=== PATIENT | female | born 1940 | race Caucasian/White ===

== ENCOUNTER → 2017-11-16 08:31 | Outpatient (CLI) | payer MEDICARE, OTHER, SELFPAY ==
[2017-11-16 11:24] LABS: AST(SGOT) 26 U/L (15-37); Alanine Aminotransfer ALT/SGPT 24 U/L (13-56); Albumin, Serum 3.4 g/dL (3.2-5.0); Alkaline Phosphatase 64 U/L (45-117); Bilirubin, Direct 0.15 mg/dL (0.00-0.30); Cholesterol 186 mg/dL (200); Globulin 3.7 g/dL (2.2-4.2); High Density Lipoprotein 96 mg/dL; Protein, Total 7.1 g/dL (6.4-8.2); Triglycerides 72 mg/dL; Very Low Density Lipoprotein 14 mg/dL (5-40)
[2017-11-16 12:02] LABS: Urine Sodium 41 mmol/L (Not Establ.)
[2017-11-16 12:52] LABS: Osmolality, Urine 465 mOsm/KG
== END ==
PROVIDERS: Nurse Practitioner Family; Family Provider Internal Medicine; PCP Internal Medicine; Visit Provider Internal Medicine Nephrology
DX: E87.1 Hypo-osmolality and hyponatremia (principal); I48.0 Paroxysmal atrial fibrillation; R06.02 Shortness of breath; I34.1 Nonrheumatic mitral (valve) prolapse; Z79.899 Other long term (current) drug therapy
CPT/HCPCS: 80061; 80076; 83935; 84133; 84300

== ENCOUNTER → 2017-12-08 11:11 | Outpatient (CLI) | payer MEDICARE, OTHER, SELFPAY ==
[2017-12-08 12:55] LABS: Albumin, Serum 3.1 g/dL (3.2-5.0); BUN 18 mg/dL (7-18); BUN/Creat Ratio 23.6 RATIO (10-20); Calcium,Total 8.2 mg/dL (8.5-10.1); Chloride 97 mmol/L (98-107); Creatinine, Serum 0.76 mg/dL (0.55-1.02); EST Glomerular Filtration Rate 78 mL/min (>60); Est Glom Filt Rate - Afr Amer 95 mL/min (>60); Glucose 72 mg/dL (74-106); Magnesium 2.2 mg/dL (1.6-2.6); Phosphorus 3.4 mg/dL (2.5-4.9); Potassium 4.1 mmol/L (3.5-5.1); Sodium Level 130 mmol/L (136-145)
== END ==
PROVIDERS: Family Provider Internal Medicine; PCP Internal Medicine; Visit Provider Internal Medicine Nephrology
DX: E87.1 Hypo-osmolality and hyponatremia (principal); E83.42 Hypomagnesemia; E22.2 Syndrome of inappropriate secretion of antidiuretic hormone
CPT/HCPCS: 36415; 80069; 83735

== ENCOUNTER → 2018-03-02 08:58 | Outpatient (CLI) | payer MEDICARE, OTHER, SELFPAY ==
--- NOTE | 2018-03-02 09:01 | BI_ITS ---
MAMMOGRAPHY - BILATERAL SCREENING REASON FOR EXAM: Female, 78 years old. Routine annual screening examination. PERTINENT HISTORY: Personal history of breast cancer. Sister with breast cancer. Prior left mastectomy. TECHNIQUE: Digital bilateral breast sunni (3D mammographic acquisition) in the CC and MLO projections. 2-D mediolateral oblique (MLO) and craniocaudad (CC) views of both breasts were obtained. CAD: Full Field Digital Mammography with Computer Added Detection was performed. COMPARISON: Comparison is made with prior outside examination dated February 03, 2017. FINDINGS: Breast Composition: There are scattered areas of fibroglandular density. There are no dominant masses or suspicious calcifications. No other significant abnormalities are identified. There has been no significant change since the prior study. BI/UNILAT RT SCRN W/CAD IMPRESSION: Stable bilateral screening mammogram. Yearly follow-up mammogram recommended. (A) ASSESSMENT CATEGORY: BIRADS Category 1: Negative. A letter regarding these results will be sent to the patient by the facility within 30 days. Approximately 10% of breast cancers are not detected by mammography. A normal mammogram should not delay biopsy of a clinically suspicious abnormality. [id number] Electronically Signed: Edenilson Crisostomo MD at 14:43 EDT Tel [phone], Service support ,
== END ==
PROVIDERS: Family Provider Internal Medicine; PCP Internal Medicine; Visit Provider Internal Medicine Hematology & Oncology
DX: Z12.31 Encounter for screening mammogram for malignant neoplasm of breast (principal); C50.212 Malignant neoplasm of upper-inner quadrant of left female breast; Z90.12 Acquired absence of left breast and nipple
CPT/HCPCS: 77061; 77067; G0279

== ENCOUNTER → 2018-04-02 08:30 | Outpatient (CLI) | payer MEDICARE, OTHER, SELFPAY ==
[2018-04-02 10:32] LABS: Anion Gap 7 (5-15); BUN 18 mg/dL (7-18); BUN/Creat Ratio 21.3 RATIO (10-20); Calcium,Total 8.6 mg/dL (8.5-10.1); Chloride 96 mmol/L (98-107); Creatinine, Serum 0.84 mg/dL (0.55-1.02); EST Glomerular Filtration Rate 70 mL/min (>60); Est Glom Filt Rate - Afr Amer 84 mL/min (>60); Glucose 99 mg/dL (74-106); Potassium 4.5 mmol/L (3.5-5.1); Sodium Level 132 mmol/L (136-145)
== END ==
PROVIDERS: Family Provider Internal Medicine; PCP Internal Medicine; Visit Provider Internal Medicine Nephrology
DX: E87.1 Hypo-osmolality and hyponatremia (principal)
CPT/HCPCS: 36415; 80048

== ENCOUNTER → 2018-04-13 11:12 | Outpatient (CLI) | payer MEDICARE, OTHER, SELFPAY ==
--- NOTE | 2018-04-13 11:15 | BD_ITS ---
STUDY: DUAL ENERGY X-RAY ABSORPTIOMETRY / DXA REASON FOR EXAM: Female, 78 years old. The patient is postmenopausal. No loss of height. TECHNIQUE: Bone Mineral Density (BMD) measurements of lumbar spine and bilateral hips were obtained. COMPARISON: Comparison is made with prior study dated July 31, 1999. FINDINGS: Lumbar Spine (L1-L4): g/cm2 (0.993) / T-score (-1.6) / Z-score (0.2) Findings are suggestive of osteopenia with a moderate fracture risk. Left Femur Total: g/cm2 (0.796) / T-score (-1.7) / Z-score (0.1) Left Femoral Neck: g/cm2 (0.749) / T-score (-2.1) / Z-score (-0.1) Right Femur Total: g/cm2 (0.704) / T-score (-2.4) / Z-score (-0.6) Right Femoral Neck: g/cm2 (0.684) / T-score (-2.5) / Z-score (-0.6) There is 50% loss of height of the L1 vertebrae and approximately 40% loss of height of the T10 vertebrae. The T-Scores on the most recent prior examination were: Lumbar Spine (L1-L4): There has been worsening of bone density since the previous examination. Left Femur Total: which represents a worsening of 19%. BD/DXA BONE DENS W/VERT FX ASMT IMPRESSION: The patient is considered osteopenic as outlined below according to World [employer] Organization (WHO) criteria with a moderate fracture risk. There has been worsening of bone density since the previous examination. Reference Information: The T-score is the number of standard deviations above or below the standard which is normal for young adults at their peak bone mineral density. The World Health Organization (WHO) interprets the T-scores as follows: Above -1 Normal bone density Between -1 and -2.5 Osteopenia Equal to / or below -2.5 Osteoporosis As a practical clinical guideline, osteopenia may be graded as follows: Mild -1 through -1.5 Moderate -1.6 through -2.0 Severe -2.1 through -2.4 The Z-score is the number of standard deviations above or below age-matched controls. A Z-score of less than -1.5 would be considered abnormal. References: 1. NIH Osteoporosis and Related Bone Diseases http://www.osteo.org 2. International Society for Clinical Densitometry http://www.iscd.org 3. National Osteoporosis Foundation http://www.nof.org Electronically Signed: Edenilson Crisostomo MD at 11:24 EDT Tel [phone], Service support ,
== END ==
PROVIDERS: Family Provider Internal Medicine; PCP Internal Medicine; Visit Provider Internal Medicine Hematology & Oncology
DX: Z78.0 Asymptomatic menopausal state (principal); M85.80 Other specified disorders of bone density and structure, unspecified site
CPT/HCPCS: 77080; 77085

== ENCOUNTER → 2018-05-08 10:05 | Outpatient (CLI) | payer MEDICARE, OTHER, SELFPAY ==
[2018-05-08 11:16] LABS: Anion Gap 10 (5-15); BUN 15 mg/dL (7-18); BUN/Creat Ratio 17.3 RATIO (10-20); Calcium,Total 8.5 mg/dL (8.5-10.1); Chloride 95 mmol/L (98-107); Creatinine, Serum 0.87 mg/dL (0.55-1.02); EST Glomerular Filtration Rate 68 mL/min (>60); Est Glom Filt Rate - Afr Amer 82 mL/min (>60); Glucose 83 mg/dL (74-106); Potassium 4.3 mmol/L (3.5-5.1); Sodium Level 132 mmol/L (136-145)
== END ==
PROVIDERS: Family Provider Internal Medicine; PCP Internal Medicine; Visit Provider Internal Medicine Nephrology
DX: E87.1 Hypo-osmolality and hyponatremia (principal)
CPT/HCPCS: 36415; 80048

== ENCOUNTER → 2018-11-12 13:34 | Outpatient (CLI) | payer MEDICARE, OTHER, SELFPAY ==
[2018-09-23 14:10] VITALS: BMI 19.0
[2018-11-12 14:43] LABS: Anion Gap 9 (5-15); BUN 18 mg/dL (7-18); BUN/Creat Ratio 18.7 RATIO (10-20); Calcium,Total 8.7 mg/dL (8.5-10.1); Chloride 97 mmol/L (98-107); Creatinine, Serum 0.96 mg/dL (0.55-1.02); EST Glomerular Filtration Rate 60 mL/min (>60); Est Glom Filt Rate - Afr Amer 72 mL/min (>60); Glucose 103 mg/dL (74-106); Potassium 4.3 mmol/L (3.5-5.1); Sodium Level 133 mmol/L (136-145)
== END ==
PROVIDERS: Family Provider Internal Medicine; PCP Internal Medicine; Referring Provider Internal Medicine Nephrology; Visit Provider Internal Medicine Nephrology
DX: E87.1 Hypo-osmolality and hyponatremia (principal)
CPT/HCPCS: 36415; 80048

== ENCOUNTER → 2019-01-17 | Outpatient (CLI) | payer MEDICARE, OTHER, SELFPAY ==
[2019-01-06 15:14] VITALS: BMI 19.1
[2019-01-17 14:03] LABS: Anion Gap 5 (5-15); BUN 18 mg/dL (7-18); BUN/Creat Ratio 21.5 RATIO (10-20); Calcium,Total 8.7 mg/dL (8.5-10.1); Chloride 97 mmol/L (98-107); Creatinine, Serum 0.84 mg/dL (0.55-1.02); EST Glomerular Filtration Rate 70 mL/min (>60); Est Glom Filt Rate - Afr Amer 85 mL/min (>60); Glucose 87 mg/dL (74-106); Potassium 4.5 mmol/L (3.5-5.1); Sodium Level 132 mmol/L (136-145)
== END | disposition home or self-care (01) ==
LOC: LAB 12:35
PROVIDERS: Family Provider Internal Medicine; PCP Internal Medicine; Referring Provider Internal Medicine Nephrology; Visit Provider Internal Medicine Nephrology
DX: E87.1 Hypo-osmolality and hyponatremia (principal)
CPT/HCPCS: 36415; 80048

== ENCOUNTER → 2019-01-31 | Outpatient (CLI) | payer MEDICARE, OTHER, SELFPAY ==
[2019-01-06 15:14] VITALS: BMI 19.1
[2019-01-31 11:01] LABS: AST(SGOT) 24 U/L (15-37); Alanine Aminotransfer ALT/SGPT 25 U/L (13-56); Albumin, Serum 3.2 g/dL (3.2-5.0); Alkaline Phosphatase 58 U/L (45-117); Bilirubin, Direct 0.18 mg/dL (0.00-0.30); Cholesterol 183 mg/dL (200); Globulin 3.6 g/dL (2.2-4.2); High Density Lipoprotein 102 mg/dL; Protein, Total 6.8 g/dL (6.4-8.2); Triglycerides 70 mg/dL; Very Low Density Lipoprotein 14 mg/dL (5-40)
== END | disposition home or self-care (01) ==
LOC: LAB 08:02
PROVIDERS: Family Provider Internal Medicine; PCP Internal Medicine; Referring Provider Internal Medicine Cardiovascular Disease; Visit Provider Internal Medicine Cardiovascular Disease
DX: I34.1 Nonrheumatic mitral (valve) prolapse (principal); Z79.899 Other long term (current) drug therapy
CPT/HCPCS: 36415; 80061; 80076

== ENCOUNTER → 2019-03-15 | Outpatient (CLI) | payer MEDICARE, OTHER, SELFPAY ==
[2019-01-06 15:14] VITALS: BMI 19.1
[2019-02-03 13:02] VITALS: BMI 18.6
--- NOTE | 2019-03-15 12:58 | BI_ITS ---
MAMMOGRAPHY - UNILATERAL SCREENING: RIGHT BREAST REASON FOR EXAM: Female, 79 years old. Routine annual screening examination (unilateral). PERTINENT HISTORY: Personal history of breast cancer. Prior left mastectomy. Sister with breast cancer. TECHNIQUE: Digital unilateral breast nilton (3D mammographic acquisition) in the CC and MLO projections. 2-D mediolateral oblique (MLO) and craniocaudad (CC) views of both breasts were obtained. CAD: Full Field Digital Mammography with Computer Added Detection was performed. COMPARISON: Comparison is made with prior study dated March 02, 2018. FINDINGS: Breast Composition: There are scattered areas of fibroglandular density. There are no dominant masses or suspicious calcifications. No other significant abnormalities are identified. There has been no significant change since the prior study. BI/SCREEN MAMM (CAD) W/NILTON UNI R IMPRESSION: Stable unilateral screening mammogram. Yearly follow-up mammogram recommended. (A) ASSESSMENT CATEGORY: BIRADS Category 1: Negative. A letter regarding these results will be sent to the patient by the facility within 30 days. Approximately 10% of breast cancers are not detected by mammography. A normal mammogram should not delay biopsy of a clinically suspicious abnormality. [id number] Electronically Signed: Edenilson Crisostomo, at 13:56 EDT , Service support ,
== END | disposition home or self-care (01) ==
LOC: OPBI 12:56
PROVIDERS: Family Provider Internal Medicine; PCP Internal Medicine; Referring Provider Internal Medicine Hematology & Oncology; Visit Provider Internal Medicine Hematology & Oncology
DX: Z12.31 Encounter for screening mammogram for malignant neoplasm of breast (principal); C50.212 Malignant neoplasm of upper-inner quadrant of left female breast
CPT/HCPCS: 77061; 77067; G0279

== ENCOUNTER 2019-06-13 06:00 | Day surgery (SDC) | payer MEDICARE, OTHER, SELFPAY ==
[2019-04-12 09:05] VITALS: BMI 18.6
[2019-04-20 14:06] VITALS: BMI 18.6
[2019-06-13 06:46] VITALS: BP 142/56; PULSE 60; RESP 15; TEMP 36.4; O2SAT 100; BMI 18.6
[2019-06-13] MEDS: Lactated Ringers 1,000 ML 100 ML IV (06:53)
--- NOTE | 2019-06-13 07:00 | IMM_PTH ---
PATIENT: JULIANNA TUCKER LOC: EN U#:[id number] AGE/SX: 79/F ROOM: RE06/13/[address]: Dr. Carlos Sheth MD : 1940 BED: DIS: 06/13/2019 SPEC #: [id number] RECD: 06/13/19 12:15 STATUS: ARELIS REQ #: [id number] VELMA: 06/13/19 07:[address]: Carlos Sheth DEPT: IMMUNOHISTOCHEMISTRY RECD BY: Floridalma Vaughn ENTERED: 06/13/19 12:16 SP TYPE: IMMUNO OTHR DR: MD Rochelle Babin MD Tissues: A - Stomach, NOS Procedures: H Pylori (initial) PHYSICIAN & INSTITUTION [place] [id number] SPECIMEN INFORMATION: Tissue Source: A - Antral biopsy Clinical Info: Reflux, history polyps Specimen Number: [id number] CPT code: 14560 METHODOLOGY: Deparaffinized sections of prefer/formalin-fixed tissue or PAP/DQ stained slides are incubated with monoclonal/polyclonal antibodies/oligonucleotide probes. Localization is made via biotin free immunoperoxidase method. Appropriate controls are performed and reacted as expected. Results on target cell population are indicated in the following table: RESULTS: ANTIBODY / CLONE RESULT Block A H Pylori (polyclonal) negative These tests were developed and their performance characteristics determined by [facility]. They may not have been cleared or approved by the U.S. Food and Drug Administration. The FDA has determined that such clearance or approval is not necessary. INTERPRETATION: A. Antral biopsy: Negative for Helicobacter pylori organisms. AM:horacio 06/14/19
--- NOTE | 2019-06-13 07:00 | EGD_PTH ---
PATIENT: JULIANNA TUCKER LOC: EN U#:[id number] AGE/SX: 79/F ROOM: RE06/13/[address]: Dr. Carlos Sheth MD : 1940 BED: DIS: 06/13/2019 SPEC #: [id number] RECD: 06/13/19 09:46 STATUS: ARELIS RESalas #: [id number] VELMA: 06/13/19 07:[address]: Carlos Sheth DEPT: SURGICAL PATHOLOGY RECD BY: Cheko Joyce ENTERED: 06/13/19 11:42 SP TYPE: EGD BIOPSY OTHR DR: MD Rochelle Babin MD Tissues: A - Gastric mucous membrane B - COLON BIOPSY Procedures: Surgery Specimen Level IV HEADER OPERATION[place] [place] DIAGNOSIS: Reflux, history of polyps TISSUE SUBMITTED: A - Antral biopsy for H. pylori and histo, B - Random colon biopsies MICROSCOPIC DIAGNOSIS A. Gastric antrum, biopsy: Mild chronic gastritis. See comment. B. Colon, random biopsy: No pathologic change. AM:horacio 06/14/19 COMMENT A. The results of immunohistochemistry for Helicobacter pylori will be reported separately ([id number]). MICROSCOPIC DESCRIPTION Slides are reviewed. GROSS DESCRIPTION A - Received in fixative is one container labeled with the patient's name and designated antral biopsy. The specimen consists of one irregular fragment of light adames soft tissue that measures 0.4 x 0.2 x 0.1 cm. The specimen is totally submitted in one cassette. B - Received in fixative is one container labeled with the patient's name and designated random colon biopsy. The specimen consists of multiple irregular fragments of light adames soft tissue that in aggregate measure 1 x 0.6 x 0.1 cm. The specimen is totally submitted in one cassette. / AM:horacio 06/13/19 TC:3 CPT: 30371 x2
--- NOTE | 2019-06-13 07:05 | HP.PCM_ITS ---
History and Physical Date of Admission: 06/13/19 [facility] [address] [place] [address] MR#: [id number] Acct: [id number] Name: JULIANNA TUCKER Rep #: [id number] : 1940 Provider: Carlos mahmood MD Age/Sex: 79/F Location: [facility] Status: Signed Intake Vital Signs 04/12/19 Body Mass Index (BMI) 18.6 04/12/19 Height 5 ft 7 in 04/12/19 Weight: 122 lb 04/12/19 Body Mass Index (BMI) 19.1 04/12/19 Blood Pressure 125/79 H 04/12/19 Blood Pressure Location Rt brachial 04/12/19 Blood Pressure Position Sitting 04/12/19 Respiratory Rate 16 04/12/19 Pulse Rate 65 04/12/19 Temperature 97.9 F 04/12/19 Temperature Source Oral 04/12/19 Pulse Ox 100 04/12/19 Oxygen Delivery Method room air 04/05/19 Body Mass Index (BMI) 18.6 Intake Visit Reasons: C-Scope Consult per patient Chief Complaint: Breast cancer follow-up Gis Developer Required: No Is patient in pain?: No Allergies grass pollen Allergy (Severe, Verified 04/12/19 09:04) Unknown Penicillins Allergy (Severe, Verified 04/12/19 09:04) Anaphylaxis mold Allergy (Verified 04/12/19 09:04) Unknown pollen extracts Allergy (Verified 04/12/19 09:04) Unknown erythromycin base Adverse Reaction (Severe, Verified 04/12/19 09:04) Unknown lansoprazole [From Prevacid] Adverse Reaction (Severe, Verified 04/12/19 09:04) Nausea/Vom/Diarrhea adhesive tape Adverse Reaction (Intermediate, Verified 04/12/19 09:04) Rash Sulfa (Sulfonamide Antibiotics) Adverse Reaction (Verified 04/12/19 09:04) Unknown CANTALOPE Allergy (Severe, Uncoded 04/12/19 09:04) Anaphylaxis Medications Cholecalciferol (Vitamin D3) [Vitamin D] 1,000 unit PO DAILY 09/01/13 [History Confirmed 04/12/19] Sodium Chloride 1 gm PO BID #60 tab 04/04/16 [Rx Confirmed 04/12/19] Sertraline HCl 25 mg PO QHS 06/14/16 [History Confirmed 04/12/19] Calcium Carbonate/Vitamin D3 [Calcium 600-Vit D3 800 Tablet] 1 ea PO BID 10/16/16 [History Confirmed 04/12/19] meclizine 25 mg tablet 25 mg PO TID PRN tab 12/01/17 [History Confirmed 04/12/19] Breast Prosthesis #1 ea 06/16/18 [Rx Confirmed 04/12/19] Leisure Breast Form #1 ea 06/16/18 [Rx Confirmed 04/12/19] Surgical/Mastectomy Bra #12 ea 06/16/18 [Rx Confirmed 04/12/19] metoprolol succinate ER 25 mg tablet,extended release 24 hr 25 mg PO .COMPLEX #135 tab 07/30/18 [Rx Confirmed 04/12/19] Anastrozole [Arimidex] 1 mg PO DAILY 90 Days #90 tab 10/14/18 [Rx Confirmed 04/12/19] dofetilide 250 mcg capsule 250 mcg PO Q12 #180 cap 11/22/18 [Rx Confirmed 04/12/19] apixaban 5 mg tablet 5 mg PO BID #180 tab 12/09/18 [Rx Confirmed 04/12/19] esomeprazole magnesium 40 mg capsule,delayed release 40 mg PO DAILY #30 cap 02/03/19 [Rx Confirmed 04/12/19] magnesium oxide 400 mg (241.3 mg magnesium) tablet 400 mg PO DAILY #90 tab 03/30/19 [Rx Confirmed 04/12/19] [facility] Medical History Osteopenia (Chronic) Nonrheumatic mitral (valve) prolapse (Chronic) Paroxysmal atrial fibrillation (Chronic) Chronic hyponatremia (Chronic) 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) Atrial flutter (Chronic) Compression fracture of L1 lumbar vertebra (Chronic) Diverticulitis (Chronic) GERD (gastroesophageal reflux disease) (Chronic) IBS (irritable bowel syndrome) (Chronic) Migraine (Chronic) Osteopenia (Chronic) Ovarian cyst (Chronic) Paroxysmal atrial flutter (Chronic) Tachycardia (Chronic) Tendinitis of right shoulder (Chronic) history of blood transfusion (Chronic) Dehydration (Resolved) Weakness (Resolved) Surgical History History of radiofrequency ablation (RFA) procedure for cardiac arrhythmia (Resolved 08/2013) H/O breast biopsy (Chronic) H/O lymph node biopsy (Chronic) History of dilation and curettage (Chronic) History of removal of ovarian cyst (Chronic) cataract surgery (Chronic) H/O left mastectomy (Resolved) History of left heart catheterization (Resolved 09/2012) Family History Father Unknown family medical history Mother Uterine cancer Thyroid disorder Kidney disease Hypertension CHF (congestive heart failure) Arthritis Social History (Updated 04/12/19 @ 10:24 by Carlos Sheth MD) Smoking Status: Never smoker alcohol intake: current alcohol intake frequency: holidays/special occasions only substance use type: does not use caffeine: Yes what type of physical activity do you participate in: walking, yoga frequency: 3-4 times per week seatbelt use: always do you feel safe at home: Yes additional social history: -Tony Patient and are both retired HPI HPI HPI: JULIANNA TUCKER, is a 79 F who presents to the office today for HPI HPI Surgical H&P: Yes HPI: JULIANNA TUCKER, is a 79 F who presents to the office today for evaluation for endoscopy. Patient has had a colonoscopy approximately 5 years ago where she was noted to have polyps and was recommended that she have a repeat colonoscopy in 2019. Patient also has been having increasing heartburn and reflux symptoms. Starts in the epigastric area and radiates all the way into her chest she has been starting on Nexium which has some help. Occasionally when she bends over she will noticed some reflux of-like symptoms but it is infrequent at times. She has had no nausea or vomiting. Her polyp was noted to be in the ascending colon She last had an upper endoscopy in 2013 as well the esophagus looked normal she he was noted to have some gastritis at that time. ROS General General: Yes breast cancer; no weight change, appetite, fatigue, colon cancer or weakness HEENT HEENT: Yes eye injury and eye surgery; no difficulty swallowing, swollen glands or hoarseness Endo Endocrine: No thyroid disease, diabetes mellitus, thyroid cancer, Hair loss, heat intolerance or cold intolerance Skin Skin: No rash or changing moles Breast Breast: No left breast lump, right breast lump, nipple discharge, breast pain, abnormal mammogram, abnormal US or breast enlargement Musc Musculoskeletal: No back problems, arthritis, rheumatoid arthritis, gout or joint pain Cardio Cardiovascular: Yes murmur and atrial fibrillation; no pacemaker, heart disease, high blood pressure, heart attack, heart stent, palpitations, shortness of breat with exertion or chest pain Psych Psychiatric: No depression, anxiety or hearing voices Resp Respiratory: No shortness of breath, No sleep apnea, No cough, No COPD, No asthma, No emphysema, No wheezing Gastro Gastrointestinal: Yes abdominal pain, No nausea or vomiting, No diarrhea, Yes constipation, No blood in stool, Yes acid reflux, No hemorrhoids, No ulcers, No gallbladder problem, No black,tarry stools Akin Hematologic: Yes blood thinners, No blood disorders, No bleeding, No anemia, No blood clots Neuro Neurologic: No system reviewed and no additional complaints, except as docu, No as per HPI, No abnormal walking, No abnormal hearing, No abnormal movements, No abnormal speech, No behavioral changes, No burning sensations, No confusion, No seizure-like activity, No unsteadiness, No dizziness, No localized weakness, No frequent falls, No headache(s), No lack of coordination, No loss of vision, No memory loss, No numbness, No other visual disturbances, No radiating pain, No restless legs, No sensory deficit, No fainting, No tingling, No tremor(s), No weakness, No other Exam Const General: no acute distress, well developed, well hydrated Orientation: oriented to person, oriented to place, oriented to time [facility] Head: normocephalic, atraumatic Ears: external ears normal Mouth: moist mucous membranes Eyes Sclera: sclerae normal Pupils: normal by confrontation Neck Neck: no lymphadenopathy noted Neck mass: No Thyroid: thyroid normal, symmetrical Chest Chest palpation & inspection: normal inspection of the chest Breast Palpation: No nipple discharge Resp Effort & Inspection: normal respiratory effort Auscultation: clear to auscultation bilaterally Percussion: percussion normal Cardio Rate: regular rate Rhythm: regular rhythm Heart Sounds: murmur GI Palpation: soft, no hepatosplenomegaly, no masses, nontender Rectal Exam: other Other: Rectal exam deferred. Extrem General: normal to inspection, no clubbing, cyanosis or edema Assessment & Plan Problems 1. Heartburn R12 2. Gastroesophageal reflux disease, esophagitis presence not specified K21.9 3. Personal history of colonic polyps Z86.010 4. Diarrhea, unspecified type R19.7 Plan I have discussed the above with the patient. I have offered the patient colonoscopy as well as an EGD for evaluation. I have explained the risks/benefits of the procedure and described the procedure. I have discussed the risks with the patient, including but not limited to: infection, bleeding, perforation of the GI tract requiring emergency surgery, inability to complete the procedure, injury to any internal organs, complications of anesthesia, etc. - the patient understands and agrees to proceed. I have answered all the patient's questions to the patient's satisfaction and the patient has no further questions. The patient has been given instructions for the colon cleansing preparation. We will be doing random colon biopsies. Orders Orders: Colonoscopy Today EGD Today Coding Level of Care Code Off vis,new,level 3 Diagnoses Heartburn R12 Gastroesophageal reflux disease, esophagitis presence not specified K21.9 ??Esophagitis presence: esophagitis presence not specified Personal history of colonic polyps Z86.010 Diarrhea, unspecified type R19.7 ??Diarrhea type: unspecified type CC: Rochelle Brandt MD ~ I have re-examined the patient. There are no clinical changes since date of exam.
[2019-06-13 07:40] VITALS: BP 106/56; BP 142/56; PULSE 72; RESP 16; TEMP 36.5; O2SAT 100
--- NOTE | 2019-06-13 07:40 | OP.ENDO_ITS ---
06/13/2019 Rochelle Brandt [address] [id number] Re : Upper GI endoscopy procedure for Rosana Amaya Dear Dr. Brandt This procedure was performed on Thursday, June 13, 2019. My impressions and recommendations are as follows: Impressions : - Normal esophagus. - Z-line regular, 43 cm from the incisors. No specimens collected. - Gastritis. Biopsied. - Normal examined duodenum. No specimens collected. Recommendations : - Discharge patient to home. - Resume previous diet. - Continue present medications. - Await pathology results. - Repeat upper endoscopy (date not yet determined) for surveillance. - Return to my office in 1 week. My findings are described in the full procedure note, which is enclosed. If I can be of further assistance, please feel free to contact me at Doctor phone number(s): , Fax: [phone], Work: . Sincerely, MD Carlos Smiley MD 06/13/2019 7:40:30 AM This report has been signed electronically.
--- NOTE | 2019-06-13 07:43 | OP.ENDO_ITS ---
06/13/2019 Rochelle Brandt [address] [place] [id number] Re : Colonoscopy procedure for Rosana Amaya Dear Dr. Brandt This procedure was performed on Thursday, June 13, 2019. My impressions and recommendations are as follows: Impressions : - The entire examined colon is normal. Biopsied. - The examination was otherwise normal on direct and retroflexion views. Recommendations : - Discharge patient to home. - Resume previous diet. - Continue present medications. - Await pathology results. - Repeat colonoscopy is not recommended due to current age (66 years or older) for surveillance. - Return to my office in 1 week. My findings are described in the full procedure note, which is enclosed. If I can be of further assistance, please feel free to contact me at Doctor phone number(s): , Fax: [phone], Work: . Sincerely, MD Carlos Smiley MD 06/13/2019 7:43:28 AM This report has been signed electronically.
[2019-06-13 07:45] VITALS: BP 105/56; BP 142/56; PULSE 66; RESP 16; O2SAT 98
[2019-06-13 07:50] VITALS: BP 142/56; BP 93/72; PULSE 70; RESP 16; O2SAT 100
[2019-06-13 07:55] VITALS: BP 115/64; BP 142/56; PULSE 68; RESP 16; TEMP 36.2; O2SAT 100
[2019-06-13 08:20] VITALS: BP 142/56
== END 2019-06-13 08:50 | disposition home or self-care (01) ==
LOC: EN 06:01 → AC 06:02
PROVIDERS: Family Provider Internal Medicine; PCP Internal Medicine; Referring Provider Internal Medicine; Visit Provider Surgery
PROC: 0DJD8ZZ Inspection of Lower Intestinal Tract, Via Natural or Artificial Opening Endoscopic (ICD-10-PCS; CPT 45378; principal; 2019-06-13 06:55)
DX: K29.50 Unspecified chronic gastritis without bleeding (principal); K58.0 Irritable bowel syndrome with diarrhea; K21.9 Gastro-esophageal reflux disease without esophagitis; I48.0 Paroxysmal atrial fibrillation; F41.9 Anxiety disorder, unspecified; F32.9 Major depressive disorder, single episode, unspecified; Z85.3 Personal history of malignant neoplasm of breast; Z90.12 Acquired absence of left breast and nipple; Z86.010 Personal history of colon polyps; Z79.02 Long term (current) use of antithrombotics/antiplatelets; Z79.899 Other long term (current) drug therapy
CPT/HCPCS: 43239; 45380; 88305; 88342; J7120; J1610; J2405

== ENCOUNTER 2019-07-13 11:20 | Emergency (ER) | payer MEDICARE, OTHER, SELFPAY ==
[2019-07-07 11:32] VITALS: BMI 18.8
[2019-07-13 11:20] VITALS: BP 131/67; PULSE 69; RESP 16; TEMP 36.7; O2SAT 100; BMI 18.6
--- NOTE | 2019-07-13 11:47 | EKG12_ITS ---
Test Reason : GENERL ILLNESS Blood Pressure : / mmHG Vent. Rate : 066 BPM Atrial Rate : 066 BPM P-R Int : 204 ms QRS Dur : 096 ms QT Int : 424 ms P-R-T Axes : 088 020 063 degrees QTc Int : 444 ms Sinus rhythm with marked sinus arrhythmia Otherwise normal ECG Confirmed by STEPHANIE THAO, JOSE ([id number]), continuity editor AMAYA COVARRUBAIS ([id number]) on 07/18/2019 8:38:05 AM Referred By: Carlos Sheth Confirmed By:JOSE BROWN MD
--- NOTE | 2019-07-13 11:48 | CT_ITS ---
STUDY: CTA CHEST REASON FOR EXAM: Female, 79 years old. Cough, weakness and syncopal episode. Recent travel. Patient has a history of breast cancer with mastectomy. RADIATION DOSAGE (If Supplied By Facility): CTDIvol = ( 2.96 ) mGy, DLP = ( 127.38 ) mGycm TECHNIQUE: The examination was performed with the intravenous administration of IV Isovue 300 75mL. Post-processing of the angiographic images was performed, with multiplanar reformation and 3D reconstruction. Individualized dose optimization techniques were used for this CT. COMPARISON: None. FINDINGS: Normal enhancement of the main pulmonary artery and right and left pulmonary arteries. Normal enhancement of the bilateral peripheral pulmonary arteries. There is no demonstrated pulmonary embolism. Normal thoracic aorta and visualized great vessels. There is no demonstrated aortic dissection. Normal heart and pericardium. Normal mediastinum. Normal hilar regions. Normal visualized trachea and bronchi. The lungs are well expanded. Increased markings at the lung apices suggestive of scarring. This is worse on the left side with areas of bronchiectasis. Mild degree of scarring at the lung bases. Normal pleura. Normal chest wall structures. Complete collapse of the L1 vertebrae. Normal visualized upper abdomen. CT/CTA Chest W/WO Contrast IMPRESSION: No evidence for pulmonary embolism. Scarring as described. Complete collapse of the L1 vertebrae. Electronically Signed: Edenilson Crisostomo, at 13:31 EDT , Service support ,
--- NOTE | 2019-07-13 11:54 | ED.DCSUM_ITS ---
- ER Visit Summary Date of Service: 07/13/19 Chief Complaint: Lightheadedness History of Present Illness: The patient is a 79 F who presents with lightheadedness that is been getting progressively worse over the past week. Patient states she feels weak all over. Patient states her lightheadedness is worse when she stands and ambulates. Patient states she had a syncopal episode today after she stood up. Patient admits to a cough. Patient states she does have some shortness of breath with exertion. Patient also admits to some palpitations. Patient admits to nausea but denies any vomiting. Patient also admits to headache and generalized weakness. Patient states she recently traveled to [place]. Patient states her was diagnosed with bronchitis. Physical Examination: Vital signs are stable. Patient is afebrile. Patient is in no acute distress. Oral mucosa is pink and moist. Neck is supple. Trachea is midline. There is no JVD. Heart was regular rate and rhythm. Lungs are clear and equal bilaterally. There is adequate respiratory effort noted. Abdomen is soft. Bowel sounds are normal. There is no tenderness. Cranial nerves II through XII are intact. There are no focal motor or sensory deficits noted. Extremities are intact. There is no calf tenderness or edema. Test Results: EKG showed sinus rhythm with a rate of 66. There are no acute ST or T wave changes. CBC shows a mild leukopenia of 2.9. Sodium was 129 and chloride was 94. Patient states this is typically where her sodium runs. Urinalysis does not show any evidence of urinary tract infection. Troponin was normal. Orthostatic vital signs were normal. Since the patient states she had recent travel to [place] and a syncopal episode this morning, CTA of the chest was obtained. There is no evidence of pulmonary embolism. Emergency Department Course and Treatment: Patient was given a dose of meclizine here since she states that that is the best nausea medicine for her. Patient felt better on reevaluation. Patient was instructed to follow-up with her primary care physician in 5 to 7 days for further evaluation. Patient understands and is agreeable with the plan. All questions were answered. Disposition: Discharge home Impression: 1. Lightheadedness This note was generated with [employer] dictation software. It may contain incorrect words, spelling, and punctuation that were not noted in review of the chart prior to signing ED Disposition - Plan for ED Patient: Disposition: Home or Assisted Living Diagnosis: Lightheadedness Instructions: SYNCOPE, Unk Cause, FALL Due to Dizziness, Weakness, or Loss of Balance Referrals: Rochelle Brandt MD [Primary Care Provider] - 3-5 Days
[2019-07-13 12:11] LABS: Absolute Lymphocyte Count 1.27 X10^3/uL (0.83-4.51); Absolute Neutrophil Count 1.2 X10^3/uL (2.0-7.7); Basophil# 0.03 X10^3/uL; Eosinophil# 0.03 X10^3/uL; Hematocrit 39.8 % (37-47); Hemoglobin 13.6 g/dL (12.0-15.0); Lymphocyte # 1.27 X10^3/ul (4.0); Lymphocyte % 43.2 % (19-41); Mean Corp Hgb Conc 34.2 g/dL (32-36); Mean Corpuscular Volume 93.6 fL (81-99); Mean Platelet Vol. 9.4 fl (6.2-12.0); Monocyte# 0.44 X10^3/uL; NRBC Flagged by Analyzer 0 % (0-5); Neutrophil # 1.16 X10^3/uL (2.7-7.7); Neutrophil % 39.5 % (47-70); Platelet Count 181 K/mm3 (150-450); RBC Distribution Width SD 44.4 fl (35.1-43.9); Red Blood Count 4.25 M/mm3 (4.2-5.4); White Blood Count 2.9 K/mm3 (4.4-11.0)
[2019-07-13] MEDS: Meclizine HCl 25 MG Tablet PO (12:11)
[2019-07-13] MEDS: 0.9% Normal Saline 1,000 ML 1000 ML IV (12:11)
[2019-07-13 12:29] LABS: Anion Gap 7 (5-15); BUN 13 mg/dL (7-18); BUN/Creat Ratio 17.2 RATIO (10-20); Calcium,Total 8.1 mg/dL (8.5-10.1); Chloride 94 mmol/L (98-107); Creatinine, Serum 0.76 mg/dL (0.55-1.02); EST Glomerular Filtration Rate 79 mL/min (>60); Est Glom Filt Rate - Afr Amer 96 mL/min (>60); Estimated Creatinine Clearance 40.15 ml/min; Glucose 93 mg/dL (74-106); Potassium 4.4 mmol/L (3.5-5.1); Sodium Level 129 mmol/L (136-145)
[2019-07-13 13:06] VITALS: BP 139/78; BP 149/68; BP 157/67; PULSE 69; PULSE 72; PULSE 80
[2019-07-13 13:27] LABS: Bacteria 0 SEEN /hpf (None Seen); Mucous, Urine 0 SEEN /hpf (<or=2+); Red Blood Cells-Urine 0 SEEN /hpf (0-5); Squamous Epithelial Cells - UA 0 SEEN /hpf (5-10)
[2019-07-13 13:33] LABS: Color, Urine Yellow (Yellow); Glucose, Dipstick Normal (Normal); Ketone-Dipstick Negative (Negative); Leukocyte Esterase-Dipstick Negative /ul (Negative); Nitrite-Dipstick Negative (Negative); Occult Blood-Urine 10 /ul (Negative); Protein-Dipstick Negative (Negative); Specific Gravity, Urine 1.005 (1.002-1.030); Urine Bilirubin Dipstick Negative (Negative); Urine Clarity Clear (Clear); Urine Urobilinogen Normal (Normal)
[2019-07-13 13:49] LABS: White Blood Cells 0 SEEN /hpf (0-5)
[2019-07-13 14:09] VITALS: BP 149/67; PULSE 77; RESP 18; O2SAT 100
[2019-07-13 15:10] VITALS: BP 158/87; PULSE 72; RESP 18; O2SAT 99
[2019-07-13 15:19] VITALS: BP 158/87; PULSE 71; RESP 18; TEMP 37.2
== END 2019-07-13 15:25 | disposition home or self-care (01) ==
PROVIDERS: Emergency Provider Emergency Medicine; Family Provider Internal Medicine; PCP Internal Medicine
DX: R42 Dizziness and giddiness (principal); K21.9 Gastro-esophageal reflux disease without esophagitis; I48.91 Unspecified atrial fibrillation; M19.90 Unspecified osteoarthritis, unspecified site; F41.9 Anxiety disorder, unspecified; F32.9 Major depressive disorder, single episode, unspecified; Z79.02 Long term (current) use of antithrombotics/antiplatelets; Z79.899 Other long term (current) drug therapy
CPT/HCPCS: 71275; 80048; 81001; 84484; 85025; 93005; 96360; 96361; 99285; J7030; Q9967; A4216

== ENCOUNTER → 2019-08-16 10:58 | Outpatient (CLI) | payer MEDICARE, OTHER, SELFPAY ==
[2019-08-16 11:50] LABS: Anion Gap 6 (5-15); BUN 17 mg/dL (7-18); BUN/Creat Ratio 20.1 RATIO (10-20); Calcium,Total 8.2 mg/dL (8.5-10.1); Chloride 98 mmol/L (98-107); Creatinine, Serum 0.84 mg/dL (0.55-1.02); EST Glomerular Filtration Rate 69 mL/min (>60); Est Glom Filt Rate - Afr Amer 84 mL/min (>60); Glucose 91 mg/dL (74-106); Potassium 4.2 mmol/L (3.5-5.1); Sodium Level 131 mmol/L (136-145)
== END ==
PROVIDERS: Family Provider Internal Medicine; PCP Internal Medicine; Referring Provider Internal Medicine Nephrology; Visit Provider Internal Medicine Nephrology
DX: I10 Essential (primary) hypertension (principal)
CPT/HCPCS: 36415; 80048

== ENCOUNTER 2019-09-29 22:31 | Emergency (ER) | payer MEDICARE, OTHER, SELFPAY ==
[2019-08-16 12:18] VITALS: BMI 18.9
[2019-09-29 22:33] VITALS: BP 153/82; PULSE 85; RESP 14; TEMP 36.6; O2SAT 98; BMI 19.3
[2019-09-29 22:56] VITALS: BP 152/94; PULSE 76; RESP 14; O2SAT 99
--- NOTE | 2019-09-29 23:00 | EKG12_ITS ---
Test Reason : PALPITATIONS Blood Pressure : / mmHG Vent. Rate : 075 BPM Atrial Rate : 075 BPM P-R Int : 230 ms QRS Dur : 108 ms QT Int : 416 ms P-R-T Axes : 099 052 069 degrees QTc Int : 464 ms Sinus rhythm with 1st degree A-V block Incomplete right bundle branch block Borderline ECG Confirmed by STEFANIE THAO, BETSY ([id number]), telegraph editor KHANG GONCALVES ([id number]) on 10/03/2019 12:21:30 PM Referred By: ASTON Confirmed By:BETSY WATTS MD
--- NOTE | 2019-09-29 23:01 | ED.DCSUM_ITS ---
History of Present Illness Chief Complaint: Palpitations Narrative: Patient is a 79-year-old female who presents with nausea and palpitations. She has not felt well since this evening about 5 PM, about 6 hours before presentation. She complains of intermittent palpitations although she is not currently having these. She also felt short of breath earlier but this has since resolved. No chest pain. She reports nausea with one small episode of emesis earlier. She also notes a history of SIADH and is concerned that she may have some electrolyte abnormalities or be dehydrated. No abdominal pain. No diarrhea. She otherwise denies recent illness such as fever cough congestion. She reports urinary urgency or frequency without dysuria or hematuria. Past Medical History - Allergies and Home Meds Allergies/Adverse Reactions: Allergies grass pollen Allergy (Severe, Verified 09/29/19 22:37) Unknown Penicillins Allergy (Severe, Verified 09/29/19 22:37) Anaphylaxis mold Allergy (Verified 09/29/19 22:37) Unknown pollen extracts Allergy (Verified 09/29/19 22:37) Unknown erythromycin base Adverse Reaction (Severe, Verified 09/29/19 22:37) Unknown STOMACH PAIN lansoprazole [From Prevacid] Adverse Reaction (Severe, Verified 09/29/19 22:37) Nausea/Vom/Diarrhea NAUSEA adhesive tape Adverse Reaction (Intermediate, Verified 09/29/19 22:37) Rash Sulfa (Sulfonamide Antibiotics) Adverse Reaction (Verified 09/29/19 22:37) Unknown PT. DOES NOT KNOW REACTION CANTALOPE Allergy (Severe, Uncoded 09/29/19 22:37) Anaphylaxis Primary Care Physician: Rochelle Brandt MD [Primary Care Provider] - Past Medical History: - - SIADH, atrial fibrillation Surgical History: dilatation and curettage, - Smoking Status: Never smoker - Family History Maternal Family History: Family History (Last Reviewed 08/16/19 @ 15:37 by Brian Cooley MD) Father Unknown family medical history Mother Uterine cancer Thyroid disorder Kidney disease Hypertension CHF (congestive heart failure) Arthritis Family History: Reports: Heart Disease Paternal Family History: Family History (Last Reviewed 08/16/19 @ 15:37 by Brian Cooley MD) Father Unknown family medical history Mother Uterine cancer Thyroid disorder Kidney disease Hypertension CHF (congestive heart failure) Arthritis Family History: Reports: No pertinent history Review of Systems All systems negative except as indicated General: Denies: Fever ENT: Denies: Bilateral ear pain Cardiovascular: Denies: Chest pain Respiratory: Reports: Dyspnea. Denies: Cough Gastrointestinal: Reports: Nausea, Vomiting. Denies: Abdominal pain, Diarrhea Genitourinary: Reports: Frequency. Denies: Dysuria, Hematuria Musculoskeletal: Denies: Myalgias, Arthralgias Skin: Denies: Rash Neurological: Denies: Headache Allergy: Denies: Uticaria Physical Exam Vital Signs/Narrative: Vital Signs Temp Pulse Resp BP Pulse Ox 09/29/19 22:56 76 14 152/94 H 99 09/29/19 22:33 97.8 F 85 14 153/82 H 98 Inital Vital Signs reviewed: Yes General: Well nourished Head: Normocephalic Eyes: EOMI ENT: Moist mucous membranes Neck: Supple Cardiovascular: Regular rate, Regular rhythm Respiratory: No distress, CTA bilaterally Abdomen: Soft, Nontender, Nondistended Extremities: Nontender Skin: Normal color Neurological: Alert Psychological: Normal affect Diagnostic/Tx/Re-eval Impressions Chest X-Ray 09/29/19 23:45 IMPRESSION: No acute findings. Electronically Signed: Rob Dl, at 0:05 EST Tel , Service support , 09/29/19 23:45 Chest PA and Lateral [RAD] Stat Laboratory Results 09/29/19 09/29/19 09/29/19 22:56 22:56 22:56 WBC 5.9 RBC 3.85 L Hgb 12.1 Hct 35.1 L MCV 91.2 MCH 31.4 MCHC 34.5 RDW Std Deviation 44.0 H RDW Coeff of Idania 13.2 Plt Count 235 MPV 9.5 Immature Gran % (Auto) 0.000 Neut % (Auto) 48.9 Lymph % (Auto) 38.3 [place] % (Auto) 10.8 H Eos % (Auto) 1.5 Baso % (Auto) 0.5 Absolute Neuts (auto) 2.9 Absolute Lymphs (auto) 2.26 Nucleated RBC % 0 PT 14.8 INR 1.2 Sodium 130 L Potassium 3.9 Chloride 99 Carbon Dioxide 26.0 Anion Gap 5 BUN 14 Creatinine 0.86 Estim Creat Clear Calc 48.43 Est GFR (MDRD) Af Amer 82 Est GFR (MDRD) Non-Af 68 BUN/Creatinine Ratio 16.2 Glucose 131 H Calcium 8.3 L Total Bilirubin 0.40 AST 22 ALT 25 Alkaline Phosphatase 63 Troponin I < 0.015 Total Protein 7.1 Albumin 3.2 Globulin 3.9 Albumin/Globulin Ratio 0.8 L Lipase 162 Urine Color Urine Clarity Urine pH Ur Specific [place] Urine Protein Urine Glucose (UA) Urine Ketones Urine Occult Blood Urine Nitrite Urine Bilirubin Urine Urobilinogen Ur Leukocyte Esterase Urine RBC Urine WBC Ur Squamous Epith Cells Ur Transition Epith Cell Urine Bacteria Urine Mucus 09/29/19 23:26 WBC RBC Hgb Hct MCV MCH MCHC RDW Std Deviation RDW Coeff of Idania Plt Count MPV Immature Gran % (Auto) Neut % (Auto) Lymph % (Auto) [place] % (Auto) Eos % (Auto) Baso % (Auto) Absolute Neuts (auto) Absolute Lymphs (auto) Nucleated RBC % PT INR Sodium Potassium Chloride Carbon Dioxide Anion Gap BUN Creatinine Estim Creat Clear Calc Est GFR (MDRD) Af Amer Est GFR (MDRD) Non-Af BUN/Creatinine Ratio Glucose Calcium Total Bilirubin AST ALT Alkaline Phosphatase Troponin I Total Protein Albumin Globulin Albumin/Globulin Ratio Lipase Urine Color Yellow Urine Clarity Clear Urine pH 7.0 Ur Specific [place] 1.010 Urine Protein Negative Urine Glucose (UA) Normal Urine Ketones Negative Urine Occult Blood 10 H Urine Nitrite Negative Urine Bilirubin Negative Urine Urobilinogen Normal Ur Leukocyte Esterase Negative Urine RBC 0-5 SEEN Urine WBC 0-5 SEEN Ur Squamous Epith Cells 0-5 SEEN Ur Transition Epith Cell 0-5 SEEN Urine Bacteria 0 SEEN Urine Mucus 0 SEEN - Medical Decision Making EKG shows sinus rhythm with a first-degree AV block at a rate of 75, no acute ischemic changes. There is an incomplete right bundle branch block. Laboratory studies notable for sodium of 130 otherwise essentially unremarkable. Chest x- ray shows no acute process. Patient was treated with IV fluids and IV Zofran. She was advised to follow-up with her primary care physician. She understands to return for new or worsening symptoms. Patient discharged. ED Disposition - Plan for ED Patient: Disposition: Home or Assisted Living Diagnosis: Nausea, Palpitations Instructions: Palpitations, VOMITING (8y-Adult) Referrals: Rochelle Brandt MD [Primary Care Provider] -
[2019-09-29 23:08] LABS: Absolute Lymphocyte Count 2.26 X10^3/uL (0.83-4.51); Absolute Neutrophil Count 2.9 X10^3/uL (2.0-7.7); Basophil# 0.03 X10^3/uL; Basophil% 0.5 % (0-1); Eosinophil# 0.09 X10^3/uL; Eosinophils% 1.5 % (0-5); Hematocrit 35.1 % (37-47); Hemoglobin 12.1 g/dL (12.0-15.0); Lymphocyte # 2.26 X10^3/ul (4.0); Lymphocyte % 38.3 % (19-41); Mean Corp Hgb Conc 34.5 g/dL (32-36); Mean Corpuscular Hgb 31.4 pg (27.0-32.0); Mean Corpuscular Volume 91.2 fL (81-99); Mean Platelet Vol. 9.5 fl (6.2-12.0); Monocyte# 0.64 X10^3/uL; Monocyte% 10.8 % (0-10); NRBC Flagged by Analyzer 0 % (0-5); Neutrophil # 2.88 X10^3/uL (2.7-7.7); Neutrophil % 48.9 % (47-70); Platelet Count 235 K/mm3 (150-450); RBC Distribution Width CV 13.2 % (11.6-14.6); Red Blood Count 3.85 M/mm3 (4.2-5.4); White Blood Count 5.9 K/mm3 (4.4-11.0)
[2019-09-29] MEDS: 0.9% Normal Saline 1,000 ML 1000 ML IV (23:17)
[2019-09-29] MEDS: Ondansetron 4 MG/2 ML Vial IV (23:18)
[2019-09-29 23:19] LABS: International Normalized Ratio 1.2; Prothrombin Time (Protime)PT. 14.8 SECONDS (11.7-14.9)
[2019-09-29 23:27] LABS: ALB/GLOB Ratio 0.8 RATIO (0.9-2.4); AST(SGOT) 22 U/L (15-37); Alanine Aminotransfer ALT/SGPT 25 U/L (13-56); Albumin, Serum 3.2 g/dL (3.2-5.0); Alkaline Phosphatase 63 U/L (45-117); Anion Gap 5 (5-15); BUN 14 mg/dL (7-18); BUN/Creat Ratio 16.2 RATIO (10-20); Calcium,Total 8.3 mg/dL (8.5-10.1); Chloride 99 mmol/L (98-107); Creatinine, Serum 0.86 mg/dL (0.55-1.02); EST Glomerular Filtration Rate 68 mL/min (>60); Est Glom Filt Rate - Afr Amer 82 mL/min (>60); Estimated Creatinine Clearance 48.43 ml/min; Globulin 3.9 g/dL (2.2-4.2); Glucose 131 mg/dL (74-106); Lipase 162 U/L (73-393); Potassium 3.9 mmol/L (3.5-5.1); Protein, Total 7.1 g/dL (6.4-8.2); Sodium Level 130 mmol/L (136-145)
[2019-09-29 23:31] LABS: Bacteria 0 SEEN /hpf (None Seen); Mucous, Urine 0 SEEN /hpf (<or=2+)
[2019-09-29 23:32] LABS: Color, Urine Yellow (Yellow); Glucose, Dipstick Normal (Normal); Ketone-Dipstick Negative (Negative); Leukocyte Esterase-Dipstick Negative /ul (Negative); Nitrite-Dipstick Negative (Negative); Occult Blood-Urine 10 /ul (Negative); Protein-Dipstick Negative (Negative); Urine Bilirubin Dipstick Negative (Negative); Urine Clarity Clear (Clear); Urine Urobilinogen Normal (Normal)
[2019-09-29 23:38] LABS: Squamous Epithelial Cells - UA 0-5 SEEN /hpf (5-10)
[2019-09-29 23:40] LABS: Red Blood Cells-Urine 0-5 SEEN /hpf (0-5); Transitional Epithelial - Ur 0-5 SEEN /hpf (0-5); White Blood Cells 0-5 SEEN /hpf (0-5)
--- NOTE | 2019-09-29 23:45 | RAD_ITS ---
STUDY: X-RAY CHEST REASON FOR EXAM: Female, 79 years old. Atrial fibrillation. TECHNIQUE: PA and lateral COMPARISON: CT chest 06/18/2019 FINDINGS: No evidence of pneumonia, pulmonary edema, pneumothorax or pleural effusion. Cardiac silhouette, hilar and mediastinal contours with no acute findings. Heart size normal. Atherosclerosis of the thoracic aorta. Degenerative osseous changes with no acute osseous abnormality. Status post left mastectomy. RAD/Chest PA and Lateral IMPRESSION: No acute findings. Electronically Signed: Rbo Lizama, at 0:05 EST Tel , Service support ,
[2019-09-30 00:39] VITALS: BP 130/75; PULSE 75; RESP 14; O2SAT 99
== END 2019-09-30 00:44 | disposition home or self-care (01) ==
PROVIDERS: Emergency Provider Emergency Medicine; PCP Internal Medicine
DX: R00.2 Palpitations (principal); R11.0 Nausea; I48.91 Unspecified atrial fibrillation; E22.2 Syndrome of inappropriate secretion of antidiuretic hormone; Z79.02 Long term (current) use of antithrombotics/antiplatelets
CPT/HCPCS: 71046; 80053; 81001; 83690; 84484; 85025; 85610; 93005; 96361; 96374; 99285; J7030; A4216; J2405

== ENCOUNTER 2019-11-03 17:28 | Emergency (ER) | payer MEDICARE, OTHER, SELFPAY ==
[2019-11-03 17:30] VITALS: BP 159/94; PULSE 92; RESP 16; TEMP 36.8; O2SAT 98; BMI 18.6
--- NOTE | 2019-11-03 17:46 | EKG12_ITS ---
Test Reason : Blood Pressure : / mmHG Vent. Rate : 083 BPM Atrial Rate : 083 BPM P-R Int : 226 ms QRS Dur : 106 ms QT Int : 412 ms P-R-T Axes : 084 045 076 degrees QTc Int : 484 ms Sinus rhythm with 1st degree A-V block with Premature supraventricular complexes RSR' or QR pattern in V1 suggests right ventricular conduction delay Borderline ECG Confirmed by VALDO THAO, ARLEN ([id number]), features editor AMAYA COVARRUBIAS ([id number]) on 11/07/2019 2:20:12 PM Referred By: DAPHNIE Confirmed By:PRATIBHA LYLE MD
--- NOTE | 2019-11-03 17:51 | ED.VIS.GEN ---
History of Present Illness Chief Complaint: Palpitations Detail of Chief Complaint: maegan stein; see below Informant: Patient Onset: Days - 1-2 Context: Gradual Onset Current Severity: Moderate Maximum Severity: Moderate Associated Symptoms: n/v, feels dehydrated, intermittent palpitations, headaches, dizziness Narrative: Patient begins by saying that she has a history of low sodium when she feels bad because ADH does the opposite of what it is supposed to in my body and she feels like that may be the case today. She states she had not been drinking fluids well in the past 2 or 3 days and feels dehydrated as a result. She started vomiting either yesterday or today, and states she feels dizzy. When asked if she has a history of vertigo she states no, and proceeds to say that she is taking meclizine for her nausea and it is not helping. When asked if her nausea is feeling due to her dizziness, she is not sure. She has been feeling dizzy in the same period of time. She does not describe it as spinning, movement, or necessarily lightheadedness and is very vague about the description. She is unclear if moving is making her feel worse or making her vomit. She denies any fevers, abdominal pain, or diarrhea. When asked if she has any chest pain she states no, not much. When asked to clarify, she states that with the vomiting, it is hard for her to tell what is going on. 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 Neg nodes. No chemo or radiation. Grade 1 (3) Chronic hyponatremia Status: Chronic (4) Paroxysmal atrial fibrillation Status: Chronic (5) Paroxysmal atrial flutter Status: Chronic Past Medical History - Allergies and Home Meds Allergies/Adverse Reactions: Allergies grass pollen Allergy (Severe, Verified 11/03/19 17:29) Unknown Penicillins Allergy (Severe, Verified 11/03/19 17:29) Anaphylaxis mold Allergy (Verified 11/03/19 17:29) Unknown pollen extracts Allergy (Verified 11/03/19 17:29) Unknown erythromycin base Adverse Reaction (Severe, Verified 11/03/19 17:29) Unknown STOMACH PAIN lansoprazole [From Prevacid] Adverse Reaction (Severe, Verified 11/03/19 17:29) Nausea/Vom/Diarrhea NAUSEA adhesive tape Adverse Reaction (Intermediate, Verified 11/03/19 17:29) Rash Sulfa (Sulfonamide Antibiotics) Adverse Reaction (Verified 11/03/19 17:29) Unknown PT. DOES NOT KNOW REACTION CANTALOPE Allergy (Severe, Uncoded 11/03/19 17:29) Anaphylaxis Primary Care Physician: Rochelle Brandt MD [Primary Care Provider] - 3-5 Days if not improving Surgical History: dilatation and curettage Lives: Spouse/ Significant Other Smoking Status: Never smoker Drugs: None - Family History Maternal Family History: Family History (Last Reviewed 08/16/19 @ 15:[address] Brian Cooley MD) Father Unknown family medical history Mother Uterine cancer Thyroid disorder Kidney disease Hypertension CHF (congestive heart failure) Arthritis Family History: Reports: Heart Disease Paternal Family History: Family History (Last Reviewed 08/16/19 @ 15:[address] Brian Cooley MD) Father Unknown family medical history Mother Uterine cancer Thyroid disorder Kidney disease Hypertension CHF (congestive heart failure) Arthritis Family History: Reports: No pertinent history Review of Systems General: Reports: Malaise, - - dizziness. Denies: Chills, Fever, Sweats Eyes: Denies: Visual changes - bilaterally, Diplopia ENT: Reports: Bilateral ear pain - pressure. Denies: Rhinorrhea, Sore throat Cardiovascular: Reports: Chest pain, Palpitations - last seconds at a time; like a skip. Respiratory: Denies: Dyspnea, Cough, Dyspnea on exertion Gastrointestinal: Reports: Nausea, Vomiting. Denies: Abdominal pain, Diarrhea, Melena, Hematochezia Genitourinary: Denies: Dysuria, Hematuria, Frequency Musculoskeletal: Denies: Neck pain, Back pain, Swelling, Extremity Pain Skin: Denies: Rash, Wounds Neurological: Reports: Headache, Weakness - all over. nonfocal.. Denies: Parasthesia, Numbness Physical Exam Vital Signs/Narrative: Vital Signs Temp Pulse Resp BP Pulse Ox 11/03/19 17:30 98.3 F 92 16 159/94 H 98 Inital Vital Signs reviewed: Yes General: Well nourished, Well developed, No Acute Distress Head: Normocephalic, Atraumatic Eyes: Perrl, EOMI, - - keeps eyes closed throughout most of exam ENT: Moist mucous membranes, No rhinorrhea, TM's clear - not fully visible due to hard cerumen bilat. Negative for: Nasal congestion, Sinus tenderness Neck: Supple, Nontender, No JVD Cardiovascular: Regular rate, Regular rhythm, No murmurs, Normal S1, Normal S2 Respiratory: No distress, CTA bilaterally, Chest nontender Abdomen: Soft, Nontender, Nondistended, Normal bowel sounds Back: Nontender, Normal Inspection Extremities: Nontender, No edema. Negative for: Calf Tenderness Skin: Normal color, No rash, No Trauma Neurological: Alert, Oriented x3, Cranial nerves II-XII grossly intact, Normal Strength, Normal Sensation, Normal Gait Psychological: Normal affect, Normal Mood Diagnostic/Tx/Re-eval Laboratory Results 11/03/19 11/03/19 11/03/19 18:00 18:05 18:05 WBC 5.1 RBC 4.21 Hgb 13.3 Hct 38.1 MCV 90.5 MCH 31.6 MCHC 34.9 RDW Std Deviation 41.7 RDW Coeff of Idania 12.5 Plt Count 207 MPV 9.5 Immature Gran % (Auto) 0.200 Neut % (Auto) 66.1 Lymph % (Auto) 27.1 [place] % (Auto) 6.0 Eos % (Auto) 0.2 Baso % (Auto) 0.4 Absolute Neuts (auto) 3.4 Absolute Lymphs (auto) 1.39 Nucleated RBC % 0 Sodium 127 L Potassium 3.7 Chloride 94 L Carbon Dioxide 26.0 Anion Gap 7 BUN 14 Creatinine 0.78 Estim Creat Clear Calc 40.01 Est GFR (MDRD) Af Amer 92 Est GFR (MDRD) Non-Af 76 BUN/Creatinine Ratio 17.9 Glucose 148 H Calcium 8.6 Troponin I < 0.015 Urine Color Straw Urine Clarity Clear Urine pH 8.0 Ur Specific [place] 1.015 Urine Protein 15 H Urine Glucose (UA) 50 H Urine Ketones 50 H Urine Occult Blood 25 H Urine Nitrite Negative Urine Bilirubin Negative Urine Urobilinogen Normal Ur Leukocyte Esterase Negative Urine RBC 0-5 SEEN Urine WBC 0-5 SEEN Ur Squamous Epith Cells 0-5 SEEN Urine Bacteria 0 SEEN Hyaline Casts 0-5 SEEN Urine Mucus 0 SEEN - Rhythm Strip Rhythm Strip: Sinus Rhythm Rate: 83 Ectopy: PAC(s) - EKG Initial EKG Interpretation: Sinus Rhythm, No Acute Injury Pattern, AV Block - 1st deg, - - PAC - Medical Decision Making Labs show mild hyponatremia 127, I do not think she needs to be admitted at that level. She chronically is around 130. She was given Phenergan and her nausea and vertigo are improved. She was given some gentle IV saline and kept here for multiple hours while she got the whole bag since she desired it which I think is reasonable. At this time since she is keeping down oral fluids I feel she can be discharged home. The patient is indeed feeling better and wants to go. Her work-up is otherwise unremarkable. ED Disposition - Plan for ED Patient: Disposition: Home or Assisted Living Diagnosis: Peripheral vertigo, unspecified, Chronic hyponatremia, Vomiting Instructions: Premature Ventricular Contractions, Palpitations, VERTIGO, Unspecified Referrals: Rochelle Brandt MD [Primary Care Provider] - 3-5 Days if not improving
[2019-11-03] MEDS: 0.9% Normal Saline 1,000 ML 150 ML IV (18:12)
[2019-11-03] MEDS: proMETHazine 25 MG/ML Syringe 6.25 MG IV (18:12)
[2019-11-03 18:17] LABS: Bacteria 0 SEEN /hpf (None Seen); Mucous, Urine 0 SEEN /hpf (<or=2+)
[2019-11-03 18:18] LABS: Absolute Lymphocyte Count 1.39 X10^3/uL (0.83-4.51); Absolute Neutrophil Count 3.4 X10^3/uL (2.0-7.7); Basophil# 0.02 X10^3/uL; Basophil% 0.4 % (0-1); Eosinophil# 0.01 X10^3/uL; Eosinophils% 0.2 % (0-5); Hematocrit 38.1 % (37-47); Hemoglobin 13.3 g/dL (12.0-15.0); Lymphocyte # 1.39 X10^3/ul (4.0); Lymphocyte % 27.1 % (19-41); Mean Corp Hgb Conc 34.9 g/dL (32-36); Mean Corpuscular Hgb 31.6 pg (27.0-32.0); Mean Corpuscular Volume 90.5 fL (81-99); Mean Platelet Vol. 9.5 fl (6.2-12.0); Monocyte# 0.31 X10^3/uL; NRBC Flagged by Analyzer 0 % (0-5); Neutrophil # 3.39 X10^3/uL (2.7-7.7); Neutrophil % 66.1 % (47-70); Platelet Count 207 K/mm3 (150-450); RBC Distribution Width CV 12.5 % (11.6-14.6); RBC Distribution Width SD 41.7 fl (35.1-43.9); Red Blood Count 4.21 M/mm3 (4.2-5.4); White Blood Count 5.1 K/mm3 (4.4-11.0)
[2019-11-03 18:23] LABS: Color, Urine Straw (Yellow); Glucose, Dipstick 50 mg/dl (Normal); Ketone-Dipstick 50 mg/dl (Negative); Leukocyte Esterase-Dipstick Negative /ul (Negative); Nitrite-Dipstick Negative (Negative); Occult Blood-Urine 25 /ul (Negative); Protein-Dipstick 15 mg/dl (Negative); Specific Gravity, Urine 1.015 (1.002-1.030); Urine Bilirubin Dipstick Negative (Negative); Urine Clarity Clear (Clear); Urine Urobilinogen Normal (Normal)
[2019-11-03 18:30] VITALS: BP 159/73; PULSE 83; RESP 18; O2SAT 100
[2019-11-03 18:35] LABS: Squamous Epithelial Cells - UA 0-5 SEEN /hpf (5-10)
[2019-11-03 18:35] LABS: Anion Gap 7 (5-15); BUN 14 mg/dL (7-18); BUN/Creat Ratio 17.9 RATIO (10-20); Calcium,Total 8.6 mg/dL (8.5-10.1); Chloride 94 mmol/L (98-107); Creatinine, Serum 0.78 mg/dL (0.55-1.02); EST Glomerular Filtration Rate 76 mL/min (>60); Est Glom Filt Rate - Afr Amer 92 mL/min (>60); Estimated Creatinine Clearance 40.01 ml/min; Glucose 148 mg/dL (74-106); Potassium 3.7 mmol/L (3.5-5.1); Sodium Level 127 mmol/L (136-145)
[2019-11-03 18:36] LABS: Hyaline Cast 0-5 SEEN /lpf (0-5); White Blood Cells 0-5 SEEN /hpf (0-5)
[2019-11-03 18:37] LABS: Red Blood Cells-Urine 0-5 SEEN /hpf (0-5)
[2019-11-03 18:57] VITALS: BP 148/90; PULSE 82; RESP 16; O2SAT 100
[2019-11-03 21:10] VITALS: BP 133/71; PULSE 81; RESP 15; O2SAT 100
[2019-11-03 22:26] VITALS: BP 125/69; PULSE 94; RESP 15; O2SAT 97
== END 2019-11-03 22:39 | disposition home or self-care (01) ==
PROVIDERS: Emergency Provider Emergency Medicine; PCP Internal Medicine
DX: H81.399 Other peripheral vertigo, unspecified ear (principal); E87.1 Hypo-osmolality and hyponatremia; R11.2 Nausea with vomiting, unspecified; I48.0 Paroxysmal atrial fibrillation; Z85.3 Personal history of malignant neoplasm of breast; Z79.02 Long term (current) use of antithrombotics/antiplatelets
CPT/HCPCS: 80048; 81001; 84484; 85025; 93005; 96361; 96374; 99284; J7030; A4216

== ENCOUNTER 2019-11-12 13:04 | Inpatient (IN) | payer MEDICARE, OTHER, SELFPAY ==
[2019-11-10 11:12] VITALS: BMI 18.6
[2019-11-12] VITALS (8 sets, daily range): BP systolic 112–166; BP diastolic 62–99; PULSE 74–80; RESP 14–18; TEMP 36.2–36.7; O2SAT 97–99; BMI 18.9; BMI 18.6; BMI 18.7
--- NOTE | 2019-11-12 13:39 | EKG12_ITS ---
Test Reason : NAUSEA/VOMITING Blood Pressure : / mmHG Vent. Rate : 080 BPM Atrial Rate : 080 BPM P-R Int : 192 ms QRS Dur : 102 ms QT Int : 396 ms P-R-T Axes : 088 050 071 degrees QTc Int : 456 ms Normal sinus rhythm Incomplete right bundle branch block Borderline ECG Confirmed by STEPHANIE THAO, JOSE ([id number]), mapping editor AMAYA COVARRUBIAS ([id number]) on 11/14/2019 10:13:36 AM Referred By: DAPHNIE Confirmed By:JOSE BROWN MD
--- NOTE | 2019-11-12 13:40 | ED.DCSUM_ITS ---
History of Present Illness Chief Complaint: Nausea/Vomiting Informant: Patient - Abdominal Pain/Flank Pain Onset: Weeks - more than 1 Timing: Intermittent Quality: - - very nauseated Current Severity: Moderate Maximum Severity: Moderate Worsened by: Food Relieved by: Nothing - Nausea/Vomiting/Emesis GI Symptom: Nausea, Vomiting Onset: Weeks - 1 Quality: Nonbilious. Negative for: Blood streaks, Coffee ground, Hematemesis Severity: Moderate - Diarrhea/Melena/Hematochezia GI Symptom: Negative for: Diarrhea, Melena, Hematochezia Associated Symptoms: Negative for: Dysuria, Frequency, Hematuria, Urgency Narrative: Patient was seen here just over 1 week ago for the same thing. She states she has been nauseated ever since, and now started vomiting again today within the past hour prior to arrival and feels miserable, that is the first time she has vomited since her last ED visit. She denies any trouble breathing most of the time. She still has some chest discomfort off and on but cannot tell if it is related to the nausea or vomiting or something else. States that she is having some discomfort between her shoulder blades that is vague. No chest discomfort at this current time. Denies any abdominal pain. Feeling intermittent palpitations still, feels like skipping intermittently. They do not make her near syncopal or pass out. No recent leg swelling. Initially history is limited due to vomiting, and when she is vomiting less, still limited because the patient gives very vague answers like maybe and a little bit and off and on to many symptoms. She states she is not feeling dizzy now. She states that she feels off balance. She states that she did not follow-up with anybody about the symptoms as advised since she was seen here about 9 days ago. She did see her oncologist as a routine appointment a couple days ago, there was nothing unusual at that appointment. She states she had a mastectomy and was treated for cancer long ago and now is maintained on hormone/estrogen elsa and has been in remission. This visit, contrary to last visit, she admits to having headaches when I asked her directly. She states these been going on for 6 months or so, and it may be worse in the past week or so. When they occur they are bifrontal, behind her eyes, and bitemporal but not occipital. She denies any neck symptoms. She denies any symptoms to feel like they are triggering the nausea. 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 Neg nodes. No chemo or radiation. Grade 1 (3) Chronic hyponatremia Status: Chronic (4) Paroxysmal atrial fibrillation Status: Chronic (5) Paroxysmal atrial flutter Status: Chronic Past Medical History - Allergies and Home Meds Allergies/Adverse Reactions: Allergies grass pollen Allergy (Severe, Verified 11/12/19 13:08) Unknown Penicillins Allergy (Severe, Verified 11/12/19 13:08) Anaphylaxis mold Allergy (Verified 11/12/19 13:08) Unknown pollen extracts Allergy (Verified 11/12/19 13:08) Unknown erythromycin base Adverse Reaction (Severe, Verified 11/12/19 13:08) Unknown STOMACH PAIN lansoprazole [From Prevacid] Adverse Reaction (Severe, Verified 11/12/19 13:08) Nausea/Vom/Diarrhea NAUSEA adhesive tape Adverse Reaction (Intermediate, Verified 11/12/19 13:08) Rash Sulfa (Sulfonamide Antibiotics) Adverse Reaction (Verified 11/12/19 13:08) Unknown PT. DOES NOT KNOW REACTION CANTALOPE Allergy (Severe, Uncoded 11/12/19 13:08) Anaphylaxis Primary Care Physician: Rochelle Brandt MD [Primary Care Provider] - Doctors: Dr. Cooley cardiology; Dr. Enciso nephrology Surgical History: dilatation and curettage Lives: Spouse/ Significant Other Smoking Status: Never smoker - Family History Maternal Family History: Family History (Last Reviewed 11/10/19 @ 11:10 by Anayeli Jackson) Father Unknown family medical history Mother Uterine cancer Thyroid disorder Kidney disease Hypertension CHF (congestive heart failure) Arthritis Family History: Reports: Heart Disease Paternal Family History: Family History (Last Reviewed 11/10/19 @ 11:10 by Anayeli Jackson) Father Unknown family medical history Mother Uterine cancer Thyroid disorder Kidney disease Hypertension CHF (congestive heart failure) Arthritis Family History: Reports: No pertinent history Review of Systems General: Reports: Malaise. Denies: Chills, Fever, Sweats Eyes: Denies: Visual changes - bilaterally, Diplopia ENT: Denies: Rhinorrhea, Sore throat Cardiovascular: Reports: Chest pain. Denies: Palpitations Respiratory: Reports: Dyspnea, Cough - a little bit. Denies: Sputum, Dyspnea on exertion, Orthopnea Gastrointestinal: Reports: Nausea, Vomiting. Denies: Abdominal pain, Diarrhea, Melena, Hematochezia Genitourinary: Denies: Dysuria, Hematuria, Frequency Musculoskeletal: Reports: Back pain. Denies: Neck pain, Swelling, Extremity Pain Skin: Denies: Rash, Wounds Neurological: Reports: Headache, - - off-balance at times. Denies: Weakness, Numbness Physical Exam Vital Signs/Narrative: Vital Signs Temp Pulse Resp BP Pulse Ox 11/12/19 13:05 97.2 F L 77 16 166/99 H 99 NIH Stroke Scale/Score (NIHSS) from [employer] on 11/12/2019 All calculations should be rechecked by clinician prior to use RESULT SUMMARY: 0 points NIH Stroke Scale INPUTS: 1A: Level of consciousness ?> 0 = Alert; keenly responsive 1B: Ask month and age ?> 0 = Both questions right 1C: 'Blink eyes' & 'squeeze hands' ?> 0 = Performs both tasks 2: Horizontal extraocular movements ?> 0 = Normal 3: Visual wheatley ?> 0 = No visual loss 4: Facial palsy ?> 0 = Normal symmetry 5A: Left arm motor drift ?> 0 = No drift for 10 seconds 5B: Right arm motor drift ?> 0 = No drift for 10 seconds 6A: Left leg motor drift ?> 0 = No drift for 5 seconds 6B: Right leg motor drift ?> 0 = No drift for 5 seconds 7: Limb Ataxia ?> 0 = No ataxia 8: Sensation ?> 0 = Normal; no sensory loss 9: Language/aphasia ?> 0 = Normal; no aphasia 10: Dysarthria ?> 0 = Normal 11: Extinction/inattention ?> 0 = No abnormality Inital Vital Signs reviewed: Yes General: Well nourished, Well developed, No Acute Distress Head: Normocephalic, Atraumatic Eyes: Perrl, EOMI ENT: Moist mucous membranes, No rhinorrhea Neck: Supple, Nontender, No lymphadenopathy, No JVD Cardiovascular: Regular rate, Regular rhythm, No murmurs Respiratory: No distress, CTA bilaterally, Chest nontender Abdomen: Soft, Nontender, Nondistended, Normal bowel sounds Back: Nontender, Normal Inspection Extremities: Nontender, No edema. Negative for: Calf Tenderness Skin: Normal color, No rash, No Trauma Neurological: Alert, Oriented x3, Cranial nerves II-XII grossly intact, Normal Strength, Normal Sensation, Normal Gait - and normal FTN and HTS Psychological: Normal affect, Normal Mood Diagnostic/Tx/Re-eval Impressions Brain CT 11/12/19 14:03 IMPRESSION: 1. Chronic involutional changes of the brain. 2. No acute intracranial process. Electronically Signed: Sheng Bearden MD at 14:38 EST Tel , Service support , 11/12/19 14:03 CT Brain [Brain/Head without Contrast] [CT] Stat Laboratory Results 11/12/19 11/12/19 11/12/19 13:24 13:24 13:24 WBC 5.4 RBC 3.94 L Hgb 12.6 Hct 36.5 L MCV 92.6 MCH 32.0 MCHC 34.5 RDW Std Deviation 43.4 RDW Coeff of Idania 12.7 Plt Count 224 MPV 9.3 Immature Gran % (Auto) 0.200 Neut % (Auto) 60.3 Lymph % (Auto) 28.4 [place] % (Auto) 9.2 Eos % (Auto) 1.5 Baso % (Auto) 0.4 Absolute Neuts (auto) 3.2 Absolute Lymphs (auto) 1.52 Nucleated RBC % 0 Sodium 130 L Potassium 3.6 Chloride 95 L Carbon Dioxide 27.0 Anion Gap 8 BUN 15 Creatinine 0.77 Estim Creat Clear Calc 40.82 Est GFR (MDRD) Af Amer 94 Est GFR (MDRD) Non-Af 77 BUN/Creatinine Ratio 19.5 Glucose 131 H Calcium 7.9 L Total Bilirubin 0.50 AST 36 ALT 33 Alkaline Phosphatase 65 Troponin I < 0.015 Total Protein 7.3 Albumin 3.5 Globulin 3.8 Albumin/Globulin Ratio 0.9 - Rhythm Strip Rhythm Strip: Sinus Rhythm Rate: 80 Ectopy: PVC(s) - EKG Initial EKG Interpretation: Sinus Rhythm, No Acute Injury Pattern - and no ectopy, - - RSR' V1-2 Prior: Unchanged - Medical Decision Making Patient is less nauseated after promethazine and gentle IV fluids. Her sodium level is 130, higher than it was a week ago at 127, she chronically is around this level, so I am not concerned about these numbers at this time. I am concerned about her symptoms, especially the persistence. I did perform a CT and it is showing no acute abnormality, the plan will be to admit her for further evaluation given all of her symptoms including her chest symptoms, and possibly an MRI of the brain to rule out posterior processes that could cause a variant of central vertigo. ED Disposition - Plan for ED Patient: Disposition: Acute Care Hospital [facility] Diagnosis: Dysequilibrium, Chest pain, unspecified, Palpitations, Vomiting Referrals: Rochelle Brandt MD [Primary Care Provider] -
[2019-11-12 13:41] LABS: Absolute Lymphocyte Count 1.52 X10^3/uL (0.83-4.51); Absolute Neutrophil Count 3.2 X10^3/uL (2.0-7.7); Basophil# 0.02 X10^3/uL; Basophil% 0.4 % (0-1); Eosinophil# 0.08 X10^3/uL; Eosinophils% 1.5 % (0-5); Hematocrit 36.5 % (37-47); Hemoglobin 12.6 g/dL (12.0-15.0); Lymphocyte # 1.52 X10^3/ul (4.0); Lymphocyte % 28.4 % (19-41); Mean Corp Hgb Conc 34.5 g/dL (32-36); Mean Corpuscular Volume 92.6 fL (81-99); Mean Platelet Vol. 9.3 fl (6.2-12.0); Monocyte# 0.49 X10^3/uL; Monocyte% 9.2 % (0-10); NRBC Flagged by Analyzer 0 % (0-5); Neutrophil # 3.23 X10^3/uL (2.7-7.7); Neutrophil % 60.3 % (47-70); Platelet Count 224 K/mm3 (150-450); RBC Distribution Width CV 12.7 % (11.6-14.6); RBC Distribution Width SD 43.4 fl (35.1-43.9); Red Blood Count 3.94 M/mm3 (4.2-5.4); White Blood Count 5.4 K/mm3 (4.4-11.0)
[2019-11-12] MEDS: 0.9% Normal Saline 1,000 ML 150 ML IV (13:42)
[2019-11-12] MEDS: proMETHazine 25 MG/ML Syringe 6.25 MG IV (13:42)
[2019-11-12 13:59] LABS: ALB/GLOB Ratio 0.9 RATIO (0.9-2.4); AST(SGOT) 36 U/L (15-37); Alanine Aminotransfer ALT/SGPT 33 U/L (13-56); Albumin, Serum 3.5 g/dL (3.2-5.0); Alkaline Phosphatase 65 U/L (45-117); Anion Gap 8 (5-15); BUN 15 mg/dL (7-18); BUN/Creat Ratio 19.5 RATIO (10-20); Calcium,Total 7.9 mg/dL (8.5-10.1); Chloride 95 mmol/L (98-107); Creatinine, Serum 0.77 mg/dL (0.55-1.02); EST Glomerular Filtration Rate 77 mL/min (>60); Est Glom Filt Rate - Afr Amer 94 mL/min (>60); Estimated Creatinine Clearance 40.82 ml/min; Globulin 3.8 g/dL (2.2-4.2); Glucose 131 mg/dL (74-106); Potassium 3.6 mmol/L (3.5-5.1); Protein, Total 7.3 g/dL (6.4-8.2); Sodium Level 130 mmol/L (136-145)
--- NOTE | 2019-11-12 14:03 | CT_ITS ---
STUDY: CT BRAIN WITHOUT CONTRAST REASON FOR EXAM: Female, 79 years old. Dizziness, vomiting and headache, history of breast cancer. RADIATION DOSAGE (If Supplied By Facility): CTDIvol = ( 44.99 ) mGy, DLP = ( 796.11 ) mGycm TECHNIQUE: Transaxial CT imaging of the brain was performed without administration of intravenous contrast material. Individualized dose optimization techniques were used for this CT. COMPARISON: 03/20/2013. FINDINGS: Normal soft tissue structures. Normal calvarium. There is mild cerebral atrophy with widening of the extra-axial spaces and ventricular dilatation. There are areas of decreased attenuation within the white matter tracts of the supratentorial brain, consistent with microvascular disease changes. Normal basal ganglia and thalami. Normal brainstem. Normal cerebellum. There is no intracranial hemorrhage. There are no findings of an acute ischemic infarction. Normal visualized paranasal sinuses. CT/Brain/Head without Contrast IMPRESSION: 1. Chronic involutional changes of the brain. 2. No acute intracranial process. Electronically Signed: Sheng Bearden MD at 14:38 EST Tel , Service support ,
--- NOTE | 2019-11-12 15:27 | HP.PCM_ITS ---
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 Neg nodes. No chemo or radiation. Grade 1 (10) Anemia Status: Chronic History of Present Illness Date of Admission: 11/12/19 Chief Complaint: Dizziness, nausea, vomiting. The patient is a 79 year old F who reports to the emergency room due to dizziness, nausea, vomiting. Patient denies sensation of room spinning. She reports motion sickness sensation. Patient states this is been ongoing for approximately a week and a half however worsened today. She states she feels unsteady on her feet. Denies unilateral weakness, vision changes, slurred speech. Patient feels her symptoms may be due to dehydration. She is on Eliquis for paroxysmal atrial fibrillation and states she did miss 1 dose a day and a half ago. She denies diarrhea. Denies fever, chills. Patient reports sh e has had similar symptoms in the past when her sodium was low due to dehydration. She states she follows with Dr. 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 Past Medical History Past Medical History (Chronic Problems): Chronic Problems (Last Reviewed 11/10/19 @ 11:10 by Anayeli Jackson) Paroxysmal atrial flutter (Chronic) Paroxysmal atrial fibrillation (Chronic) Chronic hyponatremia (Chronic) 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 Neg nodes. No chemo or radiation. 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 Neg nodes. No chemo or radiation. Grade 1 Anemia (Chronic) D64.9 Atrial flutter I48.92 Compression fracture of L1 lumbar vertebra S32.010A Diverticulitis K57.92 GERD (gastroesophageal reflux disease) K21.9 IBS (irritable bowel syndrome) K58.9 Migraine G43.909 Osteopenia M85.80 Osteopenia M85.80 Ovarian cyst N83.209 Tachycardia R00.0 Tendinitis of right shoulder M75.81 history of blood transfusion Dehydration (Resolved) E86.0 Syncope (Resolved) Onset Date: 07/13/19 R55 Weakness (Resolved) R53.1 Nonrheumatic mitral (valve) prolapse (Ruled-out) I34.1 Allergies grass pollen Allergy (Severe, Verified 11/12/19 13:08) Unknown Penicillins Allergy (Severe, Verified 11/12/19 13:08) Anaphylaxis mold Allergy (Verified 11/12/19 13:08) Unknown pollen extracts Allergy (Verified 11/12/19 13:08) Unknown erythromycin base Adverse Reaction (Severe, Verified 11/12/19 13:08) Unknown STOMACH PAIN lansoprazole [From Prevacid] Adverse Reaction (Severe, Verified 11/12/19 13:08) Nausea/Vom/Diarrhea NAUSEA adhesive tape Adverse Reaction (Intermediate, Verified 11/12/19 13:08) Rash Sulfa (Sulfonamide Antibiotics) Adverse Reaction (Verified 11/12/19 13:08) Unknown PT. DOES NOT KNOW REACTION CANTALOPE Allergy (Severe, Uncoded 11/12/19 13:08) Anaphylaxis Home Medications: Ambulatory Orders Medication Instructions Recorded apixaban 5 mg tablet 5 mg PO BID #180 tab 12/09/18 magnesium oxide 400 mg (241.3 mg 400 mg PO DAILY #90 tab 03/30/19 magnesium) tablet Sodium Chloride 1 gm PO DAILY 06/10/19 Calcium Carbonate/Vitamin D3 1 tab PO DAILY 07/13/19 [Calcium 600-Vit D3 200 Tablet] Cholecalciferol (Vitamin D3) 400 unit PO DAILY 10/30/19 [Vitamin D3] Sertraline HCl 25 mg PO DAILY 07/13/19 denosumab 60 mg/mL subcutaneous 60 mg SC [id number] 08/16/19 syringe esomeprazole magnesium 40 mg 40 mg PO DAILY #30 cap 09/30/19 capsule,delayed release Anastrozole [Arimidex] 1 mg PO DAILY 90 Days #90 tab 10/25/19 dofetilide 250 mcg capsule 250 mcg PO Q12 #180 cap 10/31/19 Metoprolol Succinate 12.5 mg PO BREAKFAST 11/12/19 Metoprolol Succinate [Toprol Xl] 25 mg PO QHS 11/12/19 Surgical History: Surgical History (Last Reviewed 11/12/19 @ 15:53 by ZULLY Diaz) History of dilation and curettage Z98.890 History of removal of ovarian cyst Z98.890, Z87.42 H/O breast biopsy Z98.890 H/O left mastectomy Z90.12 H/O lymph node biopsy Z98.890 left axillary History of cataract surgery Z98.49 History of colonoscopy Onset Date: 05/2019 Z98.890 History of esophagogastroduodenoscopy (EGD) Onset Date: 05/2019 Z98.890 History of left heart catheterization Onset Date: 09/2012 Z98.89 History of radiofrequency ablation (RFA) procedure for cardiac arrhythmia Onset Date: 08/2013 Z98.890 08/19/2013 @ [facility] [address] 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 Lives: Spouse/ Significant Other Smoking Status: Never smoker Alcohol: Rare Drugs: None - *Family History Maternal Family History: Family History (Last Reviewed 11/12/19 @ 15:53 by ZULLY Diaz) Father Unknown family medical history Mother Uterine cancer Thyroid disorder Kidney disease Hypertension CHF (congestive heart failure) Arthritis History Items: Heart Disease Paternal Family History: Family History (Last Reviewed 11/12/19 @ 15:53 by ZULLY Diaz) Father Unknown family medical history Mother Uterine cancer Thyroid disorder Kidney disease Hypertension CHF (congestive heart failure) Arthritis History Items: - - Denies known paternal medical history including cardiac history. Review of Systems Constitutional: Reports: Malaise. Denies: Chills, Fever, Weight Change HEENT: Denies: Head Aches, Sinus Congestion, Sinus Drainage Cardiovascular: Denies: Chest Pain, Palpitations Respiratory: Denies: Cough, Shortness of breath at rest, Sputum production Gastrointestinal: Reports: Nausea, Vomiting. Denies: Abdominal Pain, Diarrhea Genitourinary: Denies: Dysuria Musculoskeletal: Denies: Joint Pain, Joint Tenderness Skin: Denies: Rash, Wounds Neurological: Reports: - - Off balance, dizziness. Denies: Blurred vision, Slurred speech, Confusion, Difficulty swallowing, Focal weakness, Numbness, Tingling Psychiatric: Reports: Anxiety, Depression Hematologic/ Lymphatic: Denies: Easy Bruising, Easy Bleeding VTE Information - Inpt Only VTE Present on Admission: No VTE Mechan Device Prophylaxis: None VTE Pharm Prophylaxis ordered?: No Reason prophylaxis not ordered:: Treatment Not Indicated - Already on anticoagulation with Eliquis Patient Problems: Active and Suspected Problems (Last Reviewed 11/10/19 @ 11:10 by Anayeli Jackson) Dysequilibrium (Acute) Chest pain, unspecified (Acute) Palpitations (Acute) Vomiting (Acute) - Physical Exam Vitals/I&O's: Vital Signs Temp Pulse Resp BP Pulse Ox 97.2 F L 77 16 166/99 H 99 11/12/19 13:05 11/12/19 13:05 11/12/19 13:05 11/12/19 13:05 11/12/19 13:05 Oxygen Delivery Method Room Air Weight: 121 lb Body Mass Index (BMI) 18.9 General: Alert, Oriented x3, Cooperative HEENT: Atraumatic, PERRLA, EOMI, Normocephalic Oral: Dry Mucosa Neck: Supple, No JVD, Negative Carotid Bruits Lungs: Clear to auscultation, Normal air movement Cardiovascular: Regular rate, Regular Rhythm, Normal S1, Normal S2, No murmurs Abdomen: Bowel Sounds Present, Soft, Non Tender, Non-Distended Extremities: No clubbing, No cyanosis, No edema, Capillary Refill Less than 3 Seconds Skin: No rashes, No breakdown Musculoskeletal: No Tenderness to Palpation of Joints or Extremities, Cachexia, Muscle Wasting Neurological: Cranial nerves II-XII grossly intact, Neuro grossly intact Psych/Mental Status: Normal Affect, Appropriate Laboratory Results 11/12/19 13:24: WBC 5.4, RBC 3.94 L, Hgb 12.6, Hct 36.5 L, MCV 92.6, MCH 32.0, MCHC 34.5, RDW Std Deviation 43.4, RDW Coeff of Idania 12.7, Plt Count 224, MPV 9.3, Immature Gran % (Auto) 0.200, Neut % (Auto) 60.3, Lymph % (Auto) 28.4, [place] % (Auto) 9.2, Eos % (Auto) 1.5, Baso % (Auto) 0.4, Absolute Neuts (auto) 3.2, Absolute Lymphs (auto) 1.52, Nucleated RBC % 0 11/12/19 13:24: Sodium 130 L, Potassium 3.6, Chloride 95 L, Carbon Dioxide 27.0, Anion Gap 8, BUN 15, Creatinine 0.77, Estim Creat Clear Calc 40.82, Est GFR (MDRD) Af Amer 94, Est GFR (MDRD) Non-Af 77, BUN/Creatinine Ratio 19.5, Glucose 131 H, Calcium 7.9 L, Total Bilirubin 0.50, AST 36, ALT 33, Alkaline Phosphatase 65, Total Protein 7.3, Albumin 3.5, Globulin 3.8, Albumin/Globulin Ratio 0.9 11/12/19 13:24: Troponin I < 0.015 Current Medications Sodium Chloride () 1,000 mls @ 150 mls/hr IV .Q6H40M SYLVIE Last Admin: 11/12/19 13:42 Dose: 150 mls/hr Documented by: Assessment/Plan All Active Problems (Last Reviewed 11/10/19 @ 11:10 by Anayeli Jackson) Dysequilibrium (Acute) Chest pain, unspecified (Acute) Palpitations (Acute) Vomiting (Acute) Dehydration (Resolved) Syncope (Resolved 07/13/19) Weakness (Resolved) colonoscopy (Resolved) Nonrheumatic mitral (valve) prolapse (Ruled-out) 1. Dizziness with nausea and vomiting-rule out posterior CVA. PT/OT/ST. obtain MRI of brain, MRA of head and neck. Obtain echocardiogram. Fasting lipid panel in a.m. 2. History of SIADH-follows with nephrology, Dr. Enciso. Sodium currently at or above baseline. 3. Paroxysmal atrial fibrillation/atrial flutter-prior ablation at [facility]. Follows with Dr. Cooley. Continue Eliquis, Tikosyn, metoprolol. 4. Depression- continue sertraline. 5. 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 Follows with Dr. Nguyễn. 6. Postmenopausal osteopenia with history of compression fracture L1-continue calcium, vitamin D supplement. 7. GERD-continue PPI regimen. DVT prophylaxis-Lori This patient was seen by ZULLY Diaz under the supervision of Dr. Hunt.
--- NOTE | 2019-11-12 16:19 | ECHOD_ITS ---
Reason For Study: TIA/CVA Procedure This was a 2D Doppler, Color Flow transthoracic echocardiogram. Exam performed portable in patient room. Left Ventricle Normal LV size. Left ventricular systolic function is normal. The estimated ejection fraction is 55 %. No regional wall motion abnormalities noted. Right Ventricle Normal RV size. Normal systolic function. Atria Normal left atrium. Normal right atrium. Bubble contrast study negative for right to left interatrial shunt. Mitral Valve Bileaflet diffuse mitral valve thickening. Mild mitral valve prolapse. Tricuspid Valve Normal tricuspid valve. Mild tricuspid valve insufficiency. Aortic Valve Trisinus/trileaflet aortic valve. Pulmonic Valve Normal pulmonic valve. Great Vessels Normal aortic root. The pulmonary artery is normal size. Inferior vena cava collapse with respiration. The inferior vena cava is dilated. Pericardium/Pleural No pericardial effusion. Medication Performed a rapid injection of agitated mix of 9 cc saline and 1cc air to assess for atrial septal defect. MMode/2D Measurements & Calculations LVIDd: 4.0 cm IVSd: 1.3 cm Ao root diam: 2.6 cm LVIDs: 2.7 cm LVPWd: 1.1 cm RVDd: 3.1 cm FS: 33.0 % LAV(MOD-bp): 28.3 ml LVAd ap4: 21.2 cm2 SV(MOD-sp4): 28.7 ml LAV(MOD-bp) Indexed: 17.5 ml/m2 EDV(MOD-sp4): 50.6 ml LAV(MOD-sp2): 39.0 ml EDV(sp4-el): 50.5 ml LAV(MOD-sp4): 18.4 ml LVAs ap4: 12.4 cm2 ESV(MOD-sp4): 21.9 ml ESV(sp4-el): 21.6 ml EF(MOD-sp4): 56.7 % EF(sp4-el): 57.3 % SV(sp4-el): 29.0 ml LA A4 area: 10.1 cm2 LA dimension(2D): 3.2 cm RA A4 area: 9.5 cm2 Time Measurements MV dec time: 0.13 sec Doppler Measurements & Calculations MV E max chet: 90.7 cm/sec Ao V2 max: 100.2 cm/sec LV V1 max: 74.7 cm/sec MV A max chet: 41.2 cm/sec Ao max P.0 mmHg LV V1 max P.2 mmHg MV E/A: 2.2 PA V2 max: 72.0 cm/sec TR max chet: 236.1 cm/sec TR max P.3 mmHg Interpretation Summary Normal LV size. Left ventricular systolic function is normal. The estimated ejection fraction is 55 %. Bileaflet diffuse mitral valve thickening. Mild mitral valve prolapse. Bubble contrast study negative for right to left interatrial shunt. Ordering Physician: Michelle Hunt Referring Physician: MAURICE HACKETT Performed By: No Smith, KELLY, RVT
--- NOTE | 2019-11-12 17:07 | RAD_ITS ---
STUDY: X-RAY - ABDOMEN/PELVIS REASON FOR EXAM: Female, 79 years old. Nausea TECHNIQUE: KUB COMPARISON: None. FINDINGS: Normal visualized lung bases. There is a large colonic fecal lobe with mild colonic distention.. There are nondistended small bowel loops. There is no demonstrated free abdominal air. The visualized liver, spleen and kidneys are grossly normal in size and morphology. Normal soft tissue structures. Normal visualized osseous structures. RAD/Abdomen Single View (Portable) IMPRESSION: Large colonic fecal load, mild colonic distention, fecal impaction Electronically Signed: Vipin Miller, at 17:28 EST Tel , Service support ,
[2019-11-12 17:18] LABS: Magnesium 2.2 mg/dL (1.6-2.6); Thyroid Stim Hormone (TSH) 3.57 uIU/mL (0.358-3.74)
[2019-11-12 17:24] LABS: Hemoglobin A1c 5.8 % (4.2-6.3)
[2019-11-12] MEDS: 0.9% Normal Saline 1,000 ML 100 ML IV (17:37)
[2019-11-12] MEDS: Acetaminophen 325 MG Tablet 650 MG PO (18:40)
[2019-11-12] MEDS: Senna/Docusate Sodium 1 Tablet 2 TABLET PO (18:44)
[2019-11-12] MEDS: Dofetilide 250 MCG Capsule PO (22:02)
[2019-11-12] MEDS: Metoprolol(XL)Succ 25 MG Tablet PO (22:02)
[2019-11-12] MEDS: APIXABAN 5 MG TABLET PO (22:02)
[2019-11-13] VITALS (15 sets, daily range): BP systolic 110–148; BP diastolic 50–79; PULSE 64–78; RESP 16–18; TEMP 36.4–36.8; O2SAT 96–100
[2019-11-13] MEDS: 0.9% Normal Saline 1,000 ML 100 ML IV ×2 (03:38→15:49)
[2019-11-13 07:29] LABS: Absolute Lymphocyte Count 1.41 X10^3/uL (0.83-4.51); Absolute Neutrophil Count 1.1 X10^3/uL (2.0-7.7); Basophil# 0.03 X10^3/uL; Basophil% 0.9 % (0-1); Eosinophil# 0.12 X10^3/uL; Eosinophils% 3.8 % (0-5); Hematocrit 30.1 % (37-47); Hemoglobin 10.2 g/dL (12.0-15.0); Lymphocyte # 1.41 X10^3/ul (4.0); Lymphocyte % 44.5 % (19-41); Mean Corp Hgb Conc 33.9 g/dL (32-36); Mean Corpuscular Hgb 31.4 pg (27.0-32.0); Mean Corpuscular Volume 92.6 fL (81-99); Mean Platelet Vol. 9.9 fl (6.2-12.0); Monocyte# 0.51 X10^3/uL; Monocyte% 16.1 % (0-10); NRBC Flagged by Analyzer 0 % (0-5); Neutrophil % 34.7 % (47-70); Platelet Count 179 K/mm3 (150-450); RBC Distribution Width CV 13.1 % (11.6-14.6); RBC Distribution Width SD 44.3 fl (35.1-43.9); Red Blood Count 3.25 M/mm3 (4.2-5.4); White Blood Count 3.2 K/mm3 (4.4-11.0)
[2019-11-13 07:59] LABS: Anion Gap 6 (5-15); BUN 12 mg/dL (7-18); BUN/Creat Ratio 20.2 RATIO (10-20); Calcium,Total 7.1 mg/dL (8.5-10.1); Chloride 104 mmol/L (98-107); Cholesterol 142 mg/dL (200); Creatinine, Serum 0.59 mg/dL (0.55-1.02); EST Glomerular Filtration Rate 104 mL/min (>60); Est Glom Filt Rate - Afr Amer 126 mL/min (>60); Estimated Creatinine Clearance 40.24 ml/min; Glucose 86 mg/dL (74-106); High Density Lipoprotein 78 mg/dL; Potassium 3.6 mmol/L (3.5-5.1); Sodium Level 135 mmol/L (136-145); Triglycerides 51 mg/dL; Very Low Density Lipoprotein 10 mg/dL (5-40)
[2019-11-13] MEDS: Acetaminophen 325 MG Tablet 650 MG PO (08:59)
[2019-11-13] MEDS: Metoprolol(XL)Succ 25 MG Tablet 12.5 MG PO (09:00)
[2019-11-13] MEDS: Magnesium Oxide 400 MG Tablet PO (09:00)
[2019-11-13] MEDS: APIXABAN 5 MG TABLET PO ×2 (09:00→21:34)
--- NOTE | 2019-11-13 09:00 | MRI_ITS ---
STUDY: MRI BRAIN WITHOUT CONTRAST REASON FOR EXAM: Female, 79 years old. VA, CHAPARRO,N/V for several days, hx breast cancer TECHNIQUE: Standardized multiplanar fat and water weighted pulse sequences were obtained. COMPARISON: CT head without contrast 11/12/2019. MRI brain with and without contrast 11/01/2016. FINDINGS: No restricted diffusion to suspect acute or subacute ischemic infarct. No remote cortical-based ischemic infarct. Normal size of the ventricles and extra-axial spaces for the patient''s age. Increase size and number of T2 FLAIR hyperintensity foci in the white matter of both cerebral hemispheres when compared to 10/22/2016. They are confluent and larger in the forceps major. No midline shift and no mass effects. Normal bilateral basal ganglia. Normal thalami. There is no extra-axial fluid accumulation. Normal flow voids within the major intracranial circulation suggesting patency by spin echo criteria. Normal sella turcica, pituitary gland, infundibular stalk, optic chiasm and hypothalamus. Normal tectal plate and pineal gland. Normal midbrain, pam and medulla. Normal cerebellum. Normal basal cisterns. Normal bilateral temporal bones. Normal bilateral internal auditory canals. No demonstrated orbital abnormality, within the constraints of a routine brain study. Normal visualized paranasal sinuses. Normal calvarium and skull base. Normal visualized soft tissue structures. Mild degenerative anterolisthesis of C3 on C4 is unchanged. MRI/Brain without Contrast IMPRESSION: 1. No MRI evidence of acute or subacute ischemic infarct or remote cortical-based ischemic infarct. 2. Increase chronic white matter ischemic changes in both cerebral hemispheres when compared to 11/01/2016. Electronically Signed: Bakari Montenegro MD at 11:01 EST , Service support ,
--- NOTE | 2019-11-13 09:00 | MRI_ITS ---
STUDY: MRA OF THE HEAD WITHOUT CONTRAST REASON FOR EXAM: Female, 79 years old. CVA, CHAPARRO,N/V for several days, hx breast cancer TECHNIQUE: 3-D [id number] (TOF) imaging was performed with MIPs. The study was performed unenhanced. COMPARISON: 11/01/2016. FINDINGS: Normal bilateral petrous carotid arteries. Normal right cavernous carotid artery with a normal supraclinoid bifurcation. Normal left cavernous carotid artery with a normal supraclinoid bifurcation. Normal right A1 segment of the anterior cerebral artery. Normal left A1 segment of the anterior cerebral artery. Normal intact anterior communicating artery (ACOM). Normal bilateral A2 segments of the anterior cerebral arteries. Normal right M1 and M2 segments of the middle cerebral arteries, with a normal M1 bifurcation. Normal left M1 and M2 segments of the middle cerebral arteries, with a normal M1 bifurcation. No visible right posterior communicating artery (PCOM). No visible left posterior communicating artery (PCOM). Normal bilateral vertebral arteries. The left is dominant. Normal basilar artery with a normal basilar bifurcation. The visualized bilateral superior cerebellar (SCA) arteries are normal. Normal bilateral P1, P2 and visualized P3 segments of the posterior cerebral arteries. There is no demonstrated aneurysm of the [place]. There is no major vessel occlusion or hemodynamically significant stenosis. Chronic white matter ischemic changes in both cerebral hemispheres but no acute or subacute ischemic infarct. MRI/MRA Head ONLY without Contrast IMPRESSION: Normal MRA of the head and unchanged since 11/01/2016 Electronically Signed: Bakari Montenegro MD at 11:02 EST , Service support ,
--- NOTE | 2019-11-13 09:00 | MRI_ITS ---
STUDY: MRA NECK WITHOUT CONTRAST REASON FOR EXAM: Female, 79 years old. VA, CHAPARRO,N/V for several days, hx breast cancer TECHNIQUE: Source images were obtained, MIPs were performed. The study was performed unenhanced. COMPARISON: None. FINDINGS: RIGHT CAROTID ARTERIES: Normal right common carotid artery (CCA). Normal right internal carotid bulb. Normal origin of the right internal carotid (ICA) artery without a hemodynamically significant stenosis. Normal visualized cervical portion of the right internal carotid artery. Normal origin of the right external carotid artery (ECA). LEFT CAROTID ARTERIES: Normal left common carotid artery (CCA). Normal left internal carotid bulb. Normal origin of the left internal carotid (ICA) artery without a hemodynamically significant stenosis. Normal visualized cervical portion of the left internal carotid artery. Normal origin of the left external carotid artery (ECA). VERTEBRAL ARTERIES: Normal antegrade flow within the bilateral vertebral artery without a hemodynamically significant stenosis. The left is slightly more dominant. MRI/MRA Neck without Contrast IMPRESSION: Normal bilateral cervical carotid and vertebral arteries. Electronically Signed: Bakari Montenegro MD at 11:04 EST , Service support ,
[2019-11-13] MEDS: Sertraline 50 MG Tablet 25 MG PO (09:01)
[2019-11-13] MEDS: Pantoprazole Sodium 40 MG Tablet PO (09:01)
[2019-11-13] MEDS: Dofetilide 250 MCG Capsule PO ×2 (09:01→21:34)
[2019-11-13] MEDS: SODIUM CHLORIDE 1 GM TABLET PO (09:01)
[2019-11-13] MEDS: Anastrozole 1 MG Tablet PO (09:02)
--- NOTE | 2019-11-13 11:15 | NURSING ---
NIH late d/t pt being off unit @ MRI
--- NOTE | 2019-11-13 13:18 | PN_ITS ---
<Yoko Workman - Last Filed: 11/13/19 13:24> Patient Problems: Active and Suspected Problems (Last Reviewed 11/10/19 @ 11:10 by Anayeli Jackson) Dysequilibrium (Acute) Chest pain, unspecified (Acute) Palpitations (Acute) Vomiting (Acute) Subjective: Patient seen and examined. Motion sickness feeling improved. Patient complains of mild headache. - Physical Exam Vitals/I&O's: Vital Signs Temp Pulse Resp BP Pulse Ox 98.2 F 67 16 137/71 H 99 11/13/19 11:00 11/13/19 11:00 11/13/19 11:00 11/13/19 11:00 11/13/19 11:00 Oxygen Delivery Method Room Air Weight: 119 lb 4.321 oz Body Mass Index (BMI) 18.6 Intake and Output for Last 24 Hours 11/11/19 11/12/19 11/13/19 23:59 23:59 23:59 Intake Total 877.5 / 877.5 1720 / 1720 Balance 877.5 / 877.5 1720 / 1720 General: Alert, Oriented x3, Cooperative HEENT: Atraumatic, PERRLA, EOMI, Normocephalic Neck: Supple, No JVD, Negative Carotid Bruits Lungs: Clear to auscultation, Normal air movement Cardiovascular: Regular rate, Regular Rhythm, Normal S1, Normal S2, No murmurs Abdomen: Bowel Sounds Present, Soft, Non Tender Extremities: No clubbing, No cyanosis, No edema, Capillary Refill Less than 3 Seconds Skin: No rashes, No breakdown Musculoskeletal: No Tenderness to Palpation of Joints or Extremities, Cachexia, Muscle Wasting Neurological: Cranial nerves II-XII grossly intact Psych/Mental Status: Normal Affect, Appropriate Microbiology Past 72 Hours 11/12/19 20:30 Mucosa - Nose Respiratory Panel (PCR) - Final Laboratory Results 11/12/19 13:24: WBC 5.4, RBC 3.94 L, Hgb 12.6, Hct 36.5 L, MCV 92.6, MCH 32.0, MCHC 34.5, RDW Std Deviation 43.4, RDW Coeff of Idaina 12.7, Plt Count 224, MPV 9.3, Immature Gran % (Auto) 0.200, Neut % (Auto) 60.3, Lymph % (Auto) 28.4, [place] % (Auto) 9.2, Eos % (Auto) 1.5, Baso % (Auto) 0.4, Absolute Neuts (auto) 3.2, Absolute Lymphs (auto) 1.52, Nucleated RBC % 0 11/12/19 13:24: Sodium 130 L, Potassium 3.6, Chloride 95 L, Carbon Dioxide 27.0, Anion Gap 8, BUN 15, Creatinine 0.77, Estim Creat Clear Calc 40.82, Est GFR (MDRD) Af Amer 94, Est GFR (MDRD) Non-Af 77, BUN/Creatinine Ratio 19.5, Glucose 131 H, Calcium 7.9 L, Total Bilirubin 0.50, AST 36, ALT 33, Alkaline Phosphatase 65, Total Protein 7.3, Albumin 3.5, Globulin 3.8, Albumin/Globulin Ratio 0.9 11/12/19 13:24: Troponin I < 0.015 11/12/19 13:24: Magnesium 2.2, TSH 3.57 11/12/19 13:24: Hemoglobin A1c 5.8 11/12/19 18:30: Troponin I < 0.015 11/12/19 21:15: Troponin I < 0.015 11/13/19 05:40: WBC 3.2 L, RBC 3.25 L, Hgb 10.2 L, Hct 30.1 L, MCV 92.6, MCH 31.4, MCHC 33.9, RDW Std Deviation 44.3 H, RDW Coeff of Idania 13.1, Plt Count 179, MPV 9.9, Immature Gran % (Auto) 0.000, Neut % (Auto) 34.7 L, Lymph % (Auto) 44.5 H, [place] % (Auto) 16.1 H, Eos % (Auto) 3.8, Baso % (Auto) 0.9, Absolute Neuts (auto) 1.1 L, Absolute Lymphs (auto) 1.41, Nucleated RBC % 0 11/13/19 05:40: Sodium 135 L, Potassium 3.6, Chloride 104, Carbon Dioxide 25.0, Anion Gap 6, BUN 12, Creatinine 0.59, Estim Creat Clear Calc 40.24, Est GFR (MDRD) Af Amer 126, Est GFR (MDRD) Non-Af 104, BUN/Creatinine Ratio 20.2 H, Glucose 86, Calcium 7.1 L, Triglycerides 51, Cholesterol 142, LDL Cholesterol 54, VLDL Cholesterol 10, HDL Cholesterol 78 Current Medications Acetaminophen (Tylenol) 650 mg PO Q6H PRN PRN PRN Reason: Pain Score 1-10/Temp > 100.7 F Last Admin: 11/13/19 08:59 Dose: 650 mg Documented by: Al Hydroxide/Mg Hydroxide (Mylanta Ii) 30 ml PO Q6H PRN PRN PRN Reason: Gastric Burning Albuterol Sulfate (Ventolin Aerosols) 2.5 mg INHALATION Q2H PRN PRN PRN Reason: SOB/Wheezing Anastrozole (Arimidex) 1 mg PO DAILY [facility] Last Admin: 11/13/19 09:02 Dose: 1 mg Documented by: Apixaban (Eliquis) 5 mg PO BID [facility] Last Admin: 11/13/19 09:00 Dose: 5 mg Documented by: Dofetilide (Tikosyn) 250 mcg PO Q12 [facility] Last Admin: 11/13/19 09:01 Dose: 250 mcg Documented by: Glucagon () 1 mg IM .X1 PRN PRN Reason: Hypoglycemia Guaifenesin (Robitussin) 20 ml PO Q4H PRN PRN PRN Reason: COUGH Sodium Chloride () 1,000 mls @ 100 mls/hr IV .Q10H [facility] Last Admin: 11/13/19 03:38 Dose: 100 mls/hr Documented by: Sodium Chloride () 250 mls @ 15 mls/hr IV .[id number] PRN PRN Reason: Saline Flush Sodium Chloride () 250 mls @ 15 mls/hr IV .[id number] PRN PRN Reason: Additional IVPB Infusion Dextrose (Dextrose 10%-Water) 250 mls @ 999 mls/hr IV .Q16M PRN; Protocol PRN Reason: HYPOGLYCEMIA Magnesium Hydroxide (Milk Of Magnesia) 30 ml PO DAILY PRN PRN PRN Reason: Constipation Magnesium Oxide (Mag-Ox 400) 400 mg PO DAILY [facility] Last Admin: 11/13/19 09:00 Dose: 400 mg Documented by: Melatonin (Melatonin) 3 mg PO QHS PRN PRN PRN Reason: INSOMNIA Metoprolol Succinate (Toprol Xl (Beta Betsy)) 25 mg PO QHS [facility] Last Admin: 11/12/19 22:02 Dose: 25 mg Documented by: Metoprolol Succinate (Toprol Xl (Beta Betsy)) 12.5 mg PO BREAKFAST [facility] Last Admin: 11/13/19 09:00 Dose: 12.5 mg Documented by: Nitroglycerin (Nitrostat) 0.4 mg SUBLINGUAL Q5M PRN PRN Reason: CARDIAC/CHEST PAIN Ondansetron HCl (Zofran) 4 mg IV Q8H PRN PRN PRN Reason: NAUSEA/VOMITING Pantoprazole Sodium (Protonix) 40 mg PO DAILY [facility] Last Admin: 11/13/19 09:01 Dose: 40 mg Documented by: Prochlorperazine Edisylate (Compazine Iv) 5 mg IV Q4H PRN PRN PRN Reason: Breakthrough Nausea/Vomiting Psyllium Hydrophilic Mucilloid (Metamucil) 1 packet PO DAILY PRN PRN PRN Reason: Constipation Senna/Docusate Sodium (Senokot-S, Catherine-Colace) 2 tablet PO BID PRN PRN PRN Reason: Constipation Last Admin: 11/12/19 18:44 Dose: 2 tablet Documented by: Sertraline HCl (Zoloft) 25 mg PO DAILY [facility] Last Admin: 11/13/19 09:01 Dose: 25 mg Documented by: Sodium Chloride (Sodium Chloride) 1 gm PO DAILY [facility] Last Admin: 11/13/19 09:01 Dose: 1 gm Documented by: Sodium Chloride () 10 - 40 ml IV UD PRN PRN Reason: SALINE FLUSH Throat Lozenges (Cepacol Sore Throat Lozenge) 1 lozenge MUCOUS MEM Q2H PRN PRN PRN Reason: SORE THROAT Medical Necessity - Tobacco Use Smoking Status: Never smoker Assessment/Plan All Active Problems (Last Reviewed 11/10/19 @ 11:10 by Anayeli Jackson) Dysequilibrium (Acute) Chest pain, unspecified (Acute) Palpitations (Acute) Vomiting (Acute) Dehydration (Resolved) Syncope (Resolved 07/13/19) Weakness (Resolved) colonoscopy (Resolved) Nonrheumatic mitral (valve) prolapse (Ruled-out) 1. Dizziness with nausea and vomiting-CVA ruled out. PT/OT/ST. MRI of brain without acute infarct. Neck MRA normal. Obtain orthostatic vitals. Obtain echocardiogram in a.m. Nausea and vomiting resolved. Plan for discharge tomorrow following echo if continued improvement. 2. History of SIADH-follows with nephrology, Dr. Enicso. Sodium currently at or above baseline. 3. Paroxysmal atrial fibrillation/atrial flutter-prior ablation at [facility]. Follows with Dr. Cooley. Continue Eliquis, Tikosyn, metoprolol. 4. Depression- continue sertraline. 5. 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 Follows with Dr. Nguyễn. 6. Postmenopausal osteopenia with history of compression fracture L1-continue calcium, vitamin D supplement. 7. GERD-continue PPI regimen. DVT prophylaxis-Lori This patient was seen by ZULLY Diaz under the supervision of Dr. Gresham. <Rudolph Gresham - Last Filed: 11/13/19 13:42> - Physical Exam Vitals/I&O's: Vital Signs Temp Pulse Resp BP Pulse Ox 98.2 F 67 16 137/71 H 99 11/13/19 11:00 11/13/19 11:00 11/13/19 11:00 11/13/19 11:00 11/13/19 11:00 Oxygen Delivery Method Room Air Weight: 54.1 kg Body Mass Index (BMI) 18.6 Intake and Output for Last 24 Hours 11/11/19 11/12/19 11/13/19 23:59 23:59 23:59 Intake Total 877.5 / 877.5 2306.67 / 2306.67 Balance 877.5 / 877.5 2306.67 / 2306.67 Microbiology Past 72 Hours 11/12/19 20:30 Mucosa - Nose Respiratory Panel (PCR) - Final Laboratory Results 11/12/19 13:24: WBC 5.4, RBC 3.94 L, Hgb 12.6, Hct 36.5 L, MCV 92.6, MCH 32.0, MCHC 34.5, RDW Std Deviation 43.4, RDW Coeff of Idania 12.7, Plt Count 224, MPV 9.3, Immature Gran % (Auto) 0.200, Neut % (Auto) 60.3, Lymph % (Auto) 28.4, [place] % (Auto) 9.2, Eos % (Auto) 1.5, Baso % (Auto) 0.4, Absolute Neuts (auto) 3.2, Absolute Lymphs (auto) 1.52, Nucleated RBC % 0 11/12/19 13:24: Sodium 130 L, Potassium 3.6, Chloride 95 L, Carbon Dioxide 27.0, Anion Gap 8, BUN 15, Creatinine 0.77, Estim Creat Clear Calc 40.82, Est GFR (MDRD) Af Amer 94, Est GFR (MDRD) Non-Af 77, BUN/Creatinine Ratio 19.5, Glucose 131 H, Calcium 7.9 L, Total Bilirubin 0.50, AST 36, ALT 33, Alkaline Phosphatase 65, Total Protein 7.3, Albumin 3.5, Globulin 3.8, Albumin/Globulin Ratio 0.9 11/12/19 13:24: Troponin I < 0.015 11/12/19 13:24: Magnesium 2.2, TSH 3.57 11/12/19 13:24: Hemoglobin A1c 5.8 11/12/19 18:30: Troponin I < 0.015 11/12/19 21:15: Troponin I < 0.015 11/13/19 05:40: WBC 3.2 L, RBC 3.25 L, Hgb 10.2 L, Hct 30.1 L, MCV 92.6, MCH 31.4, MCHC 33.9, RDW Std Deviation 44.3 H, RDW Coeff of Idania 13.1, Plt Count 179, MPV 9.9, Immature Gran % (Auto) 0.000, Neut % (Auto) 34.7 L, Lymph % (Auto) 44.5 H, [place] % (Auto) 16.1 H, Eos % (Auto) 3.8, Baso % (Auto) 0.9, Absolute Neuts (auto) 1.1 L, Absolute Lymphs (auto) 1.41, Nucleated RBC % 0 11/13/19 05:40: Sodium 135 L, Potassium 3.6, Chloride 104, Carbon Dioxide 25.0, Anion Gap 6, BUN 12, Creatinine 0.59, Estim Creat Clear Calc 40.24, Est GFR (MDRD) Af Amer 126, Est GFR (MDRD) Non-Af 104, BUN/Creatinine Ratio 20.2 H, Glucose 86, Calcium 7.1 L, Triglycerides 51, Cholesterol 142, LDL Cholesterol 54, VLDL Cholesterol 10, HDL Cholesterol 78 Current Medications Acetaminophen (Tylenol) 650 mg PO Q6H PRN PRN PRN Reason: Pain Score 1-10/Temp > 100.7 F Last Admin: 11/13/19 08:59 Dose: 650 mg Documented by: Al Hydroxide/Mg Hydroxide (Mylanta Ii) 30 ml PO Q6H PRN PRN PRN Reason: Gastric Burning Albuterol Sulfate (Ventolin Aerosols) 2.5 mg INHALATION Q2H PRN PRN PRN Reason: SOB/Wheezing Anastrozole (Arimidex) 1 mg PO DAILY [facility] Last Admin: 11/13/19 09:02 Dose: 1 mg Documented by: Apixaban (Eliquis) 5 mg PO BID [facility] Last Admin: 11/13/19 09:00 Dose: 5 mg Documented by: Dofetilide (Tikosyn) 250 mcg PO Q12 [facility] Last Admin: 11/13/19 09:01 Dose: 250 mcg Documented by: Glucagon () 1 mg IM .X1 PRN PRN Reason: Hypoglycemia Guaifenesin (Robitussin) 20 ml PO Q4H PRN PRN PRN Reason: COUGH Sodium Chloride () 1,000 mls @ 100 mls/hr IV .Q10H [facility] Last Infusion: 11/13/19 11:15 Dose: 100 mls/hr Documented by: Sodium Chloride () 250 mls @ 15 mls/hr IV .[id number] PRN PRN Reason: Saline Flush Sodium Chloride () 250 mls @ 15 mls/hr IV .[id number] PRN PRN Reason: Additional IVPB Infusion Dextrose (Dextrose 10%-Water) 250 mls @ 999 mls/hr IV .Q16M PRN; Protocol PRN Reason: HYPOGLYCEMIA Magnesium Hydroxide (Milk Of Magnesia) 30 ml PO DAILY PRN PRN PRN Reason: Constipation Magnesium Oxide (Mag-Ox 400) 400 mg PO DAILY [facility] Last Admin: 11/13/19 09:00 Dose: 400 mg Documented by: Melatonin (Melatonin) 3 mg PO QHS PRN PRN PRN Reason: INSOMNIA Metoprolol Succinate (Toprol Xl (Beta Betsy)) 25 mg PO QHS [facility] Last Admin: 11/12/19 22:02 Dose: 25 mg Documented by: Metoprolol Succinate (Toprol Xl (Beta Betsy)) 12.5 mg PO BREAKFAST [facility] Last Admin: 11/13/19 09:00 Dose: 12.5 mg Documented by: Nitroglycerin (Nitrostat) 0.4 mg SUBLINGUAL Q5M PRN PRN Reason: CARDIAC/CHEST PAIN Ondansetron HCl (Zofran) 4 mg IV Q8H PRN PRN PRN Reason: NAUSEA/VOMITING Pantoprazole Sodium (Protonix) 40 mg PO DAILY [facility] Last Admin: 11/13/19 09:01 Dose: 40 mg Documented by: Prochlorperazine Edisylate (Compazine Iv) 5 mg IV Q4H PRN PRN PRN Reason: Breakthrough Nausea/Vomiting Psyllium Hydrophilic Mucilloid (Metamucil) 1 packet PO DAILY PRN PRN PRN Reason: Constipation Senna/Docusate Sodium (Senokot-S, Catherine-Colace) 2 tablet PO BID PRN PRN PRN Reason: Constipation Last Admin: 11/12/19 18:44 Dose: 2 tablet Documented by: Sertraline HCl (Zoloft) 25 mg PO DAILY [facility] Last Admin: 11/13/19 09:01 Dose: 25 mg Documented by: Sodium Chloride (Sodium Chloride) 1 gm PO DAILY [facility] Last Admin: 11/13/19 09:01 Dose: 1 gm Documented by: Sodium Chloride () 10 - 40 ml IV UD PRN PRN Reason: SALINE FLUSH Throat Lozenges (Cepacol Sore Throat Lozenge) 1 lozenge MUCOUS MEM Q2H PRN PRN PRN Reason: SORE THROAT Assessment/Plan This patient was seen in conjunction with ZULLY Diaz . I have independently interviewed and examined the patient and reviewed pertinent historical, laboratory, and other data. Please refer to ZULLY Diaz note for details of this patient's presentation, findings, and recommendations. I have reviewed ZULLY iDaz note and concur with documented findings. In brief, patient is a 79-year-old lady with history of SIADH who presented with sudden onset of nausea vomiting with associated dizziness admitted to monitored bed for subsequent work-up Physical Examination: GENERAL: cooperative HEENT: Atraumatic; EYES; Anicteric, Normal Conjunctiva NECK; supple, normal thyroid, RESPIRATORY: Diminished to auscultation CARDIOVASCULAR: Regular S1 S2, GI: soft, normoactive bowel sounds, : No Renal angle tenderness; EXTREMITIES: No edema, no clubbing, MUSCULOSKELETAL: no muscle waisting NEURO: Awake; no lateralizing signs. SKIN: No Rash PSYCH; Flat affect Assessment: 1. Acute vertigo 2. SIADH 3. Dehydration 4. Paroxysmal atrial fibrillation 5. 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 GERD 7. Depression with anxiety 8. Osteopenia Recommendations: 1. I have discussed the results of my overview and impressions with the patient 2. Options for management were reviewed Code Visit OBSV E&M: 92943 Observ/hosp same date L3
[2019-11-13] MEDS: Metoprolol(XL)Succ 25 MG Tablet PO (21:34)
[2019-11-13] MEDS: Senna/Docusate Sodium 1 Tablet 2 TABLET PO (21:34)
[2019-11-14] VITALS (8 sets, daily range): BP systolic 129–147; BP diastolic 62–81; PULSE 59–76; RESP 16–18; TEMP 36.6–36.7; O2SAT 97–98
[2019-11-14] MEDS: 0.9% Normal Saline 1,000 ML 100 ML IV (01:49)
[2019-11-14] MEDS: Metoprolol(XL)Succ 25 MG Tablet 12.5 MG PO (08:15)
[2019-11-14] MEDS: Magnesium Oxide 400 MG Tablet PO (08:16)
[2019-11-14] MEDS: Dofetilide 250 MCG Capsule PO (08:16)
[2019-11-14] MEDS: SODIUM CHLORIDE 1 GM TABLET PO (08:17)
[2019-11-14] MEDS: Pantoprazole Sodium 40 MG Tablet PO (08:17)
[2019-11-14] MEDS: Sertraline 50 MG Tablet 25 MG PO (08:17)
[2019-11-14] MEDS: APIXABAN 5 MG TABLET PO (08:18)
[2019-11-14] MEDS: Anastrozole 1 MG Tablet PO (08:18)
[2019-11-14] MEDS: Acetaminophen 325 MG Tablet 650 MG PO (10:52)
--- NOTE | 2019-11-14 11:05 | CASEMGMT ---
Assessment- SW spoke with patient and completed assessment at bedside. Living situation- Patient lives with her in a 1 story home with a ramp entrance. PCP: Dr Rochelle Brandt Specialists: Dr Cooley-Cardiology, Dr Sheth has done some surgery for patient, and Dr Nguyễn-Oncology Pharmacy: [facility]: shower josefina, hand held shower, grab bars, cane, and her mom's old walker ADL's/IADL's: Patient is independent in all ADL's and IADL's. She drives. Past SNF/rehab: No senior living stay, but she did go to [facility] 4th floor rehab a couple of years ago when she had a bad fall. Past HH: None LW: She has one and her business attorney's office was supposed to send a copy to [facility]. She is aware there are no copies at [facility] POA: She has one and her business attorney's office was supposed to send a copy to [facility]. She is aware there are no copies at [facility]. Her , Tony is her HCPOA Plan: Patient is a very independent lady. She worked with therapy and they are recommending outpatient therapy. Patient confirmed this is what she would like at d/c. Katlyn EGAN STRAP MAKER
--- NOTE | 2019-11-14 11:10 | DCINST_ITS ---
- Discharge Diagnoses Current Active Problems: Current Active and Chronic Problems (Last Reviewed 11/10/19 @ 11:10 by Anayeli Jackson) Dysequilibrium (Acute) Vertigo You will use the following diet at home:: No restrictions Discharge Activity: Return to Normal Activity Call your doctor if you observe: Shortness of breath, Dizziness, Fainting spells, Chest pain Allergies/Adverse Reactions: Allergies grass pollen Allergy (Severe, Verified 11/12/19 13:08) Unknown Penicillins Allergy (Severe, Verified 11/12/19 13:08) Anaphylaxis mold Allergy (Verified 11/12/19 13:08) Unknown pollen extracts Allergy (Verified 11/12/19 13:08) Unknown erythromycin base Adverse Reaction (Severe, Verified 11/12/19 13:08) Unknown STOMACH PAIN lansoprazole [From Prevacid] Adverse Reaction (Severe, Verified 11/12/19 13:08) Nausea/Vom/Diarrhea NAUSEA adhesive tape Adverse Reaction (Intermediate, Verified 11/12/19 13:08) Rash Sulfa (Sulfonamide Antibiotics) Adverse Reaction (Verified 11/12/19 13:08) Unknown PT. DOES NOT KNOW REACTION CANTALOPE Allergy (Severe, Uncoded 11/12/19 13:08) Anaphylaxis Medications to take at Discharge apixaban 5 mg tablet 5 mg PO BID #180 tab 12/09/18 magnesium oxide 400 mg (241.3 mg magnesium) tablet 400 mg PO DAILY #90 tab 03/30/19 Sodium Chloride 1 gm PO BID 06/10/19 Calcium Carbonate/Vitamin D3 [Calcium 600-Vit D3 200 Tablet] 1 tab PO DAILY 07/13/19 Cholecalciferol (Vitamin D3) [Vitamin D3] 400 unit PO DAILY 07/13/19 Sertraline HCl 12.5 mg PO QODAY 07/13/19 denosumab 60 mg/mL subcutaneous syringe 60 mg SC [id number] 08/16/19 esomeprazole magnesium 40 mg capsule,delayed release 40 mg PO DAILY #30 cap 09/30/19 dofetilide 250 mcg capsule 250 mcg PO Q12 #180 cap 10/31/19 Anastrozole [Arimidex] 1 mg PO QHS 11/12/19 Metoprolol Succinate 12.5 mg PO BREAKFAST 11/12/19 Metoprolol Succinate [Toprol Xl] 25 mg PO QHS 11/12/19 Meclizine HCl [Antivert] 12.5 mg PO TID PRN PRN #20 tab 11/14/19 Promethazine HCl 12.5 mg PO BID PRN #20 tab 11/14/19 The following prescriptions were given: Meclizine HCl [Antivert] 12.5 mg PO TID PRN PRN #20 tab PRN Reason: Vertigo Transmission Status: Pending to [facility] Promethazine HCl 12.5 mg PO BID PRN #20 tab PRN Reason: Nausea Transmission Status: Pending to [facility] Primary Care Physician: Rochelle Brandt MD [Primary Care Provider] - Please follow up with your Primary Care Physician in: 1 Week Test Results: Test results from this visit will be discussed in further detail at your follow- up appointment, if applicable. Please Follow Up With: Ron Jane MD - ENT When: 3-5 Days Please Follow Up With: Erick Blanca MD - Neurology When: Call to [facility] [phone] for headaches Proposed Discharge Date: 11/14/19
--- NOTE | 2019-11-14 11:15 | PCM.DC.SUM ---
<Yoko Workman - Last Filed: 11/14/19 11:26> Discharge Date and Diagnosis Date of Admission: 11/12/19 Date of Discharge: 11/14/19 - Primary Discharge Diagnosis Active and Suspected Problems (Last Reviewed 11/10/19 @ 11:10 by Anayeli Jackson) 1. Dizziness with nausea and vomiting-CVA ruled out. 2. History of SIADH 3. Paroxysmal atrial fibrillation/atrial flutter 4. Depression 5. 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 Postmenopausal osteopenia with history of compression fracture L1 7. 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 Neg nodes. No chemo or radiation. Grade 1 Anemia (Chronic) Hospital Course and Treatment Imaging Results: Diagnostic Data Brain CT 11/12/19 14:03 IMPRESSION: 1. Chronic involutional changes of the brain. 2. No acute intracranial process. Electronically Signed: Sheng Bearden MD at 14:38 EST Tel , Service support , KUB X-Ray 11/12/19 17:07 IMPRESSION: Large colonic fecal load, mild colonic distention, fecal impaction Electronically Signed: Vipin Miller at 17:28 EST Tel , Service support , Brain MRI 11/13/19 09:00 IMPRESSION: 1. No MRI evidence of acute or subacute ischemic infarct or remote cortical-based ischemic infarct. 2. Increase chronic white matter ischemic changes in both cerebral hemispheres when compared to 11/01/2016. Electronically Signed: Bakari Montenegro MD at 11:01 EST , Service support , Head MRA 11/13/19 09:00 IMPRESSION: Normal MRA of the head and unchanged since 11/01/2016 Electronically Signed: Bakari Montenegro MD at 11:02 EST , Service support , Neck MRA 11/13/19 09:00 IMPRESSION: Normal bilateral cervical carotid and vertebral arteries. Electronically Signed: Bakari Montenegro MD at 11:04 EST , Service support , Operations: None Procedures: 2-D Echocardiogram Summary of Care Provided: The patient is a 79 year old F admitted 11/12/2019 due to dizziness, nausea, vomiting. 1. Dizziness with nausea and vomiting-CVA ruled out. MRI of brain without acute infarct. Neck MRA normal. Orthostatic vitals negative. Echocardiogram completed, report pending and will be reviewed prior to discharge. Patient amenable to outpatient PT for disequilibrium/strengthening/balance. Also recommended outpatient follow-up with ENT who she states she has not seen in approximately 7 years for further evaluation regarding ongoing vertigo and disequilibrium. Patient has followed with Dr. Jane in the past. Patient referred to neurology, Dr. Blanca as well for ongoing headache evaluation. Nausea resolved. Rx given for meclizine and Phenergan for as needed nausea and vertigo. Follow-up with primary care provider in 1 week. 2. History of SIADH-follows with nephrology, Dr. Enciso. Sodium currently at or above baseline. 3. Paroxysmal atrial fibrillation/atrial flutter-prior ablation at [facility]. Follows with Dr. Cooley. Continue Eliquis, Tikosyn, metoprolol. 4. Depression- continue sertraline. 5. 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 Follows with Dr. Nguyễn. 6. Postmenopausal osteopenia with history of compression fracture L1-continue calcium, vitamin D supplement. 7. GERD-continue PPI regimen. General: Alert, Oriented x3, Cooperative HEENT: Atraumatic, PERRLA, EOMI, Normocephalic Neck: Supple, No JVD, Negative Carotid Bruits Lungs: Clear to auscultation, Normal air movement Cardiovascular: Regular rate, Regular Rhythm, Normal S1, Normal S2, No murmurs Abdomen: Bowel Sounds Present, Soft, Non Tender Extremities: No clubbing, No cyanosis, No edema, Capillary Refill Less than 3 Seconds Skin: No rashes, No breakdown Musculoskeletal: No Tenderness to Palpation of Joints or Extremities, Cachexia, Muscle Wasting Neurological: Cranial nerves II-XII grossly intact Psych/Mental Status: Normal Affect, Appropriate Patient seen and examined prior to discharge. Physical assessment as noted above. Patient is stable for discharge with follow up recommendations as noted above. This patient was seen by ZULLY Diaz under the supervision of Dr. Rushing. - Physical Exam Vitals/I&O's: Vital Signs Temp Pulse Resp BP Pulse Ox 98.0 F 62 18 147/74 H 98 11/14/19 05:51 11/14/19 10:00 11/14/19 05:51 11/14/19 08:15 11/14/19 07:23 Oxygen Delivery Method Room Air Weight: 119 lb 4.321 oz Body Mass Index (BMI) 18.6 Orthostatic Vital Signs Start: 11/13/19 15:28 Freq: q24h Status: Active Protocol: Activity Type Activity Date Activity User E-Sign Co-Sign Detail Recorded Client Recorded Date Recorded By Document 11/14/19 05:51 KK [id number] 11/14/19 05:57 KK 11/14/19 05:51 Orthostatic Vitals Standing -Blood Pressure (90/60-120/80) 136/77 H -Extremity Use Right Arm -Pulse Rate (60-100) 76 Sitting -Blood Pressure (90/60-120/80) 140/81 H -Extremity Use Right Arm -Pulse Rate (60-100) 70 Lying -Blood Pressure (90/60-120/80) 138/69 H -Extremity Use Right Arm -Pulse Rate (60-100) 67 Intake and Output for Last 24 Hours 11/12/19 11/13/19 11/14/19 23:59 23:59 23:59 Intake Total 877.5 / 877.5 3680.00 / 3680.00 1500 / 1500 Balance 877.5 / 877.5 3680.00 / 3680.00 1500 / 1500 Microbiology Past 72 Hours 11/12/19 20:30 Mucosa - Nose Respiratory Panel (PCR) - Final Current Medications Acetaminophen (Tylenol) 650 mg PO Q6H PRN PRN PRN Reason: Pain Score 1-10/Temp > 100.7 F Last Admin: 11/14/19 10:52 Dose: 650 mg Documented by: Al Hydroxide/Mg Hydroxide (Mylanta Ii) 30 ml PO Q6H PRN PRN PRN Reason: Gastric Burning Albuterol Sulfate (Ventolin Aerosols) 2.5 mg INHALATION Q2H PRN PRN PRN Reason: SOB/Wheezing Anastrozole (Arimidex) 1 mg PO DAILY [facility] Last Admin: 11/14/19 08:18 Dose: 1 mg Documented by: Apixaban (Eliquis) 5 mg PO BID [facility] Last Admin: 11/14/19 08:18 Dose: 5 mg Documented by: Dofetilide (Tikosyn) 250 mcg PO Q12 [facility] Last Admin: 11/14/19 08:16 Dose: 250 mcg Documented by: Glucagon () 1 mg IM .X1 PRN PRN Reason: Hypoglycemia Guaifenesin (Robitussin) 20 ml PO Q4H PRN PRN PRN Reason: COUGH Sodium Chloride () 250 mls @ 15 mls/hr IV .[id number] PRN PRN Reason: Saline Flush Sodium Chloride () 250 mls @ 15 mls/hr IV .[id number] PRN PRN Reason: Additional IVPB Infusion Dextrose (Dextrose 10%-Water) 250 mls @ 999 mls/hr IV .Q16M PRN; Protocol PRN Reason: HYPOGLYCEMIA Magnesium Hydroxide (Milk Of Magnesia) 30 ml PO DAILY PRN PRN PRN Reason: Constipation Magnesium Oxide (Mag-Ox 400) 400 mg PO DAILY [facility] Last Admin: 11/14/19 08:16 Dose: 400 mg Documented by: Meclizine HCl (Antivert) 12.5 mg PO TID PRN PRN PRN Reason: Vertigo Melatonin (Melatonin) 3 mg PO QHS PRN PRN PRN Reason: INSOMNIA Metoprolol Succinate (Toprol Xl (Beta Betsy)) 25 mg PO QHS [facility] Last Admin: 11/13/19 21:34 Dose: 25 mg Documented by: Metoprolol Succinate (Toprol Xl (Beta Betsy)) 12.5 mg PO BREAKFAST [facility] Last Admin: 03/02/20 08:15 Dose: 12.5 mg Documented by: Nitroglycerin (Nitrostat) 0.4 mg SUBLINGUAL Q5M PRN PRN Reason: CARDIAC/CHEST PAIN Ondansetron HCl (Zofran) 4 mg IV Q8H PRN PRN PRN Reason: NAUSEA/VOMITING Pantoprazole Sodium (Protonix) 40 mg PO DAILY [facility] Last Admin: 11/14/19 08:17 Dose: 40 mg Documented by: Prochlorperazine Edisylate (Compazine Iv) 5 mg IV Q4H PRN PRN PRN Reason: Breakthrough Nausea/Vomiting Psyllium Hydrophilic Mucilloid (Metamucil) 1 packet PO DAILY PRN PRN PRN Reason: Constipation Senna/Docusate Sodium (Senokot-S, Catherine-Colace) 2 tablet PO BID PRN PRN PRN Reason: Constipation Last Admin: 11/13/19 21:34 Dose: 2 tablet Documented by: Sertraline HCl (Zoloft) 25 mg PO DAILY [facility] Last Admin: 11/14/19 08:17 Dose: 25 mg Documented by: Sodium Chloride (Sodium Chloride) 1 gm PO DAILY [facility] Last Admin: 11/14/19 08:17 Dose: 1 gm Documented by: Sodium Chloride () 10 - 40 ml IV UD PRN PRN Reason: SALINE FLUSH Throat Lozenges (Cepacol Sore Throat Lozenge) 1 lozenge MUCOUS MEM Q2H PRN PRN PRN Reason: SORE THROAT Discharge Diet: No Restrictions Discharge Activity: Return to Normal Activity Call your doctor if you observe: Shortness of breath, Dizziness, Fainting spells, Chest pain Home Medications: Medications to take at Discharge apixaban 5 mg tablet 5 mg PO BID #180 tab 12/09/18 magnesium oxide 400 mg (241.3 mg magnesium) tablet 400 mg PO DAILY #90 tab 03/30/19 Sodium Chloride 1 gm PO BID 06/10/19 Calcium Carbonate/Vitamin D3 [Calcium 600-Vit D3 200 Tablet] 1 tab PO DAILY 07/13/19 Cholecalciferol (Vitamin D3) [Vitamin D3] 400 unit PO DAILY 07/13/19 Sertraline HCl 12.5 mg PO QODAY 07/13/19 denosumab 60 mg/mL subcutaneous syringe 60 mg SC [id number] 08/16/19 esomeprazole magnesium 40 mg capsule,delayed release 40 mg PO DAILY #30 cap 09/30/19 dofetilide 250 mcg capsule 250 mcg PO Q12 #180 cap 10/31/19 Anastrozole [Arimidex] 1 mg PO QHS 11/12/19 Metoprolol Succinate 12.5 mg PO BREAKFAST 11/12/19 Metoprolol Succinate [Toprol Xl] 25 mg PO QHS 11/12/19 Meclizine HCl [Antivert] 12.5 mg PO TID PRN PRN #20 tab 11/14/19 Promethazine HCl 12.5 mg PO BID PRN #20 tab 11/14/19 Following Prescrptions Were Given to Patient: Meclizine HCl [Antivert] 12.5 mg PO TID PRN PRN #20 tab PRN Reason: Vertigo Transmission Status: Received by [facility] [place] [address] Promethazine HCl 12.5 mg PO BID PRN #20 tab PRN Reason: Nausea Transmission Status: Re[facility] by [facility] Primary Care Physician: Rochelle Brandt MD [Primary Care Provider] - Please follow up with your Primary Care Physician in: 1 Week Please Follow Up With: Ron Jane MD - ENT When: 3-5 Days Please Follow Up With: Erick Blanca MD - Neurology When: Call to establish [phone], [facility] for headaches Disposition: Home Minutes spent on discharge:: 35 Patient Condition:: Stable Medical Necessity - Tobacco Use Smoking Status: Never smoker Meaningful Use Info Meaningful Use Diagnoses (Choose all that apply): None applicable <Mayur Rushing - Last Filed: 11/14/19 16:59> Discharge Date and Diagnosis - Secondary Discharge Diagnosis Chronic Problems (Last Reviewed 11/10/19 @ 11:10 by Anayeli Jackson) Paroxysmal atrial flutter (Chronic) Paroxysmal atrial fibrillation (Chronic) Chronic hyponatremia (Chronic) 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 Neg nodes. No chemo or radiation. Grade 1 Anemia (Chronic) Hospital Course and Treatment Operations: None Procedures: 2-D Echocardiogram Summary of Care Provided: Patient seen and examined independently. Data reviewed. I agree with the above note by the nurse practitioner. The patient is a 79 year old F presents with dizziness, nausea and vomiting. Patient underwent a stroke work-up evaluate for posterior strokes given the dizziness. MRI of the brain was negative for any stroke. MRI was negative. Patient has seen ENT in the past as a lot of her symptoms of dizziness began after striking her head after fall. Unclear if this is related with M?ni?re's or benign paroxysmal positional vertigo or if there is some other neurologic process. Additionally, patient does recommend a follow-up with neurology. [] - Physical Exam Vitals/I&O's: Vital Signs Temp Pulse Resp BP Pulse Ox 36.6 C 68 16 129/62 H 97 11/14/19 11:14 11/14/19 11:14 11/14/19 11:14 11/14/19 11:14 11/14/19 11:14 Oxygen Delivery Method Room Air Weight: 54.1 kg Body Mass Index (BMI) 18.6 Orthostatic Vital Signs Start: 11/13/19 15:28 Freq: q24h Status: Active Protocol: Activity Type Activity Date Activity User E-Sign Co-Sign Detail Recorded Client Recorded Date Recorded By Document 11/14/19 05:51 KK [id number] 11/14/19 05:57 KK 11/14/19 05:51 Orthostatic Vitals Standing -Blood Pressure (90/60-120/80) 136/77 H -Extremity Use Right Arm -Pulse Rate (60-100) 76 Sitting -Blood Pressure (90/60-120/80) 140/81 H -Extremity Use Right Arm -Pulse Rate (60-100) 70 Lying -Blood Pressure (90/60-120/80) 138/69 H -Extremity Use Right Arm -Pulse Rate (60-100) 67 Intake and Output for Last 24 Hours 11/12/19 11/13/19 11/14/19 23:59 23:59 23:59 Intake Total 877.5 / 877.5 3680.00 / 3680.00 1500 / 1500 Balance 877.5 / 877.5 3680.00 / 3680.00 1500 / 1500 General: Alert, Cooperative, No apparent distress HEENT: Atraumatic, Normocephalic Oral: Moist Mucosa, No Gingival or Mucosal Lesions/ Ulcerations Neck: No Nodes, Trachea Midline Lungs: Clear to auscultation, Normal air movement, No rhonchi, No wheeze, No rales Cardiovascular: Regular rate, Regular Rhythm, Normal S1, Normal S2, No murmurs Abdomen: Bowel Sounds Present, Soft, Non Tender, Non-Distended, No Hepato-splenomegaly Microbiology Past 72 Hours 11/12/19 20:30 Mucosa - Nose Respiratory Panel (PCR) - Final Discharge Diet: No Restrictions Discharge Activity: Return to Normal Activity Disposition: Home Minutes spent on discharge:: 35 Patient Condition:: Stable Medical Necessity - Tobacco Use Smoking Status: Never smoker Meaningful Use Info Meaningful Use Diagnoses (Choose all that apply): None applicable Code Visit Inpatient E&M: 50978 Disch Hosp
--- NOTE | 2019-11-14 11:47 | CASEMGMT ---
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 She thought her assistant district attorney sent copies to [facility]. SW let her know there are no copies here at [facility]. Her is her Healthcare POA. Katlyn GALLO
--- NOTE | 2019-11-14 11:49 | CASEMGMT ---
Pt provided with OP physical therapy script per request at this time. Pt states she will decide where she wants to do therapy. Pt states no further questions/concerns/needs at this time. Pt awaiting discharge. Leatha CAI CM
--- NOTE | 2019-11-14 11:59 | PHA.DC.MC ---
Pharmacy Service has performed discharge medication reconciliation and counseling for this patient. 1. MECLIZINE 12.5MG PO TID PRN VERTIGO 2. PROMETHAZINE 12.5MG PO BID PRN NAUSEA The patient's discharge medication list was reviewed for discrepancies and discrepancies were resolved. Home Medications apixaban 5 mg tablet 5 mg PO BID #180 tab 12/09/18 magnesium oxide 400 mg (241.3 mg magnesium) tablet 400 mg PO DAILY #90 tab 03/30/19 Sodium Chloride 1 gm PO BID 06/10/19 Calcium Carbonate/Vitamin D3 [Calcium 600-Vit D3 200 Tablet] 1 tab PO DAILY 07/13/19 Cholecalciferol (Vitamin D3) [Vitamin D3] 400 unit PO DAILY 07/13/19 Sertraline HCl 12.5 mg PO QODAY 07/13/19 denosumab 60 mg/mL subcutaneous syringe 60 mg SC [id number] 08/16/19 esomeprazole magnesium 40 mg capsule,delayed release 40 mg PO DAILY #30 cap 09/30/19 dofetilide 250 mcg capsule 250 mcg PO Q12 #180 cap 10/31/19 Anastrozole [Arimidex] 1 mg PO QHS 11/12/19 Metoprolol Succinate 12.5 mg PO BREAKFAST 11/12/19 Metoprolol Succinate [Toprol Xl] 25 mg PO QHS 11/12/19 Meclizine HCl [Antivert] 12.5 mg PO TID PRN PRN #20 tab 11/14/19 Promethazine HCl 12.5 mg PO BID PRN #20 tab 11/14/19 The patient was counseled on the following discharge medications and changes in medications for homegoing were reviewed. The Reason for Use, instructions for use, and potential side effects were reviewed for all new medications. The patient's questions regarding all of their medications were answered. The patient was able to verbally demonstrate an understanding of their discharge medications.
--- NOTE | 2019-11-14 14:33 | NURSING ---
reviewed discharge instructions, voiced understanding, discharged with scripts & own meds per wheelchair in care of
--- NOTE | 2019-11-15 15:49 | CASEMGMT ---
Addendum entered by Isamar Woo 11/17/19 15:20: Pt called this RN CM back and states that she is doing 'better than when I went in.' Pt states 'felt great yesterday, went to meetings, and was out most of the day.' Pt states somewhat tired today with sl nausea/dizzy but states 'I haven't gotten the fluids that I need to get in me yet today.' Pt states no questions regarding D/C instructions/medications at this time. Pt states has f/u with PCP tomorrow and has all other physician appt's made and plans to keep. Pt states 'I really appreciate the hospital making my appointments for me.' Pt states 'no complaints' for [facility] at this time and states 'I was well taken care of.' Pt voices no further questions/concerns/needs at this time. Leatha CAI CM Addendum entered by Isamar Woo 11/17/19 14:46: This RN CM received a message from pt for f/u phone call to call pt back. Call to pt again at this time without success. Message left for pt to call this RN CM back if/when able. Leatha CAI CM Original Note: RN CM Discharge F/U Phone Call LACE: 12 Strata: 3 Discharge date: 11/14/19 Call date: 11/15/19 Call time: [id number] Attempted to reach pt without success at this time, message left for pt to call this RN CM back if/when able. Leatha CAI CM Admission dx: Intractable N/V, dizziness
== END 2019-11-14 14:39 | disposition home or self-care (01) | DRG 149 ==
LOC: ED 15:26 → PCU 15:31
PROVIDERS: Emergency Medicine; Admitting Provider Family Medicine; Emergency Provider Emergency Medicine; PCP Internal Medicine
DX: R42 Dizziness and giddiness (principal); I48.92 Unspecified atrial flutter; M48.56XA Collapsed vertebra, not elsewhere classified, lumbar region, initial encounter for fracture; E22.2 Syndrome of inappropriate secretion of antidiuretic hormone; E86.0 Dehydration; R11.2 Nausea with vomiting, unspecified; I48.0 Paroxysmal atrial fibrillation; F32.9 Major depressive disorder, single episode, unspecified; Z90.12 Acquired absence of left breast and nipple; Z85.3 Personal history of malignant neoplasm of breast; K21.9 Gastro-esophageal reflux disease without esophagitis; M85.80 Other specified disorders of bone density and structure, unspecified site; Z79.02 Long term (current) use of antithrombotics/antiplatelets; F41.9 Anxiety disorder, unspecified; Z79.811 Long term (current) use of aromatase inhibitors; Z66 Do not resuscitate; D64.9 Anemia, unspecified; Z79.899 Other long term (current) drug therapy
CPT/HCPCS: 36415; 70450; 70544; 70547; 70551; 74018; 80048; 80053; 80061; 83036; 83735; 84443; 84484; 85025; 87633; 92610; 93005; 93306; 94762; 97162; 97166; 97802; 99251; 99283; J7030; A4216; G0463

== ENCOUNTER → 2020-02-13 | Outpatient (CLI) | payer MEDICARE, OTHER, SELFPAY ==
[2019-11-12 23:52] VITALS: BMI 18.6
[2020-02-13 15:56] LABS: Anion Gap 6 (5-15); BUN 19 mg/dL (7-18); BUN/Creat Ratio 21.8 RATIO (10-20); Calcium,Total 8.4 mg/dL (8.5-10.1); Chloride 96 mmol/L (98-107); Creatinine, Serum 0.87 mg/dL (0.55-1.02); EST Glomerular Filtration Rate 67 mL/min (>60); Est Glom Filt Rate - Afr Amer 81 mL/min (>60); Glucose 96 mg/dL (74-106); Potassium 4.7 mmol/L (3.5-5.1); Sodium Level 128 mmol/L (136-145)
[2020-02-13 17:52] LABS: Urine Sodium 31 mmol/L (Not Establ.)
[2020-02-13 19:13] LABS: Osmolality, Urine 551 mOsm/KG
== END | disposition home or self-care (01) ==
LOC: LAB 14:39
PROVIDERS: PCP Internal Medicine; Referring Provider Internal Medicine Nephrology; Visit Provider Internal Medicine Nephrology
DX: I10 Essential (primary) hypertension (principal); E87.1 Hypo-osmolality and hyponatremia
CPT/HCPCS: 36415; 80048; 83935; 84300

== ENCOUNTER → 2020-02-23 12:47 | Outpatient (CLI) | payer MEDICARE, OTHER, SELFPAY ==
[2020-02-23 11:45] VITALS: BMI 18.6
[2020-02-23 13:53] LABS: Ferritin 22 ng/mL (8-252); Iron 78 ug/dL (50-170)
== END ==
PROVIDERS: PCP Internal Medicine; Referring Provider Psychiatry & Neurology Neurology; Visit Provider Psychiatry & Neurology Neurology
DX: D64.9 Anemia, unspecified (principal)
CPT/HCPCS: 36415; 82728; 82746; 83540

== ENCOUNTER → 2020-03-27 | Outpatient (CLI) | payer MEDICARE, OTHER, SELFPAY ==
[2020-03-27 14:28] VITALS: BMI 18.9
[2020-03-27 17:09] LABS: Anion Gap 4 (5-15); BUN 27 mg/dL (7-18); BUN/Creat Ratio 27.4 RATIO (10-20); Calcium,Total 8.4 mg/dL (8.5-10.1); Chloride 98 mmol/L (98-107); Creatinine, Serum 0.98 mg/dL (0.55-1.02); EST Glomerular Filtration Rate 58 mL/min (>60); Est Glom Filt Rate - Afr Amer 70 mL/min (>60); Glucose 116 mg/dL (74-106); Magnesium 2.4 mg/dL (1.6-2.6); Potassium 3.8 mmol/L (3.5-5.1); Sodium Level 132 mmol/L (136-145)
== END | disposition home or self-care (01) ==
PROVIDERS: PCP Internal Medicine; Referring Provider Internal Medicine Cardiovascular Disease; Visit Provider Internal Medicine Cardiovascular Disease
DX: I48.0 Paroxysmal atrial fibrillation (principal)
CPT/HCPCS: 36415; 80048; 83735

== ENCOUNTER → 2020-04-12 | Outpatient (CLI) | payer MEDICARE, OTHER, SELFPAY ==
[2020-03-27 14:28] VITALS: BMI 18.9
[2020-04-12 16:43] LABS: Anion Gap 4 (5-15); BUN 44 mg/dL (7-18); BUN/Creat Ratio 46.6 RATIO (10-20); Calcium,Total 8.6 mg/dL (8.5-10.1); Chloride 99 mmol/L (98-107); Creatinine, Serum 0.94 mg/dL (0.55-1.02); EST Glomerular Filtration Rate 61 mL/min (>60); Est Glom Filt Rate - Afr Amer 74 mL/min (>60); Glucose 79 mg/dL (74-106); Potassium 4.2 mmol/L (3.5-5.1); Sodium Level 132 mmol/L (136-145)
== END | disposition home or self-care (01) ==
LOC: LAB 14:43
PROVIDERS: PCP Internal Medicine; Referring Provider Psychiatry & Neurology Neurology; Visit Provider Psychiatry & Neurology Neurology
DX: E87.1 Hypo-osmolality and hyponatremia (principal)
CPT/HCPCS: 36415; 80048

== ENCOUNTER → 2020-05-01 | Outpatient (CLI) | payer MEDICARE, OTHER, SELFPAY ==
[2020-02-23 11:45] VITALS: BMI 18.6
[2020-04-12 16:04] VITALS: BMI 18.9
--- NOTE | 2020-05-01 12:45 | BI_ITS ---
MAMMOGRAPHY - UNILATERAL SCREENING: RIGHT BREAST REASON FOR EXAM: Female, 80 years old. Routine annual screening examination (unilateral). PERTINENT HISTORY: Personal and sister history of breast cancer TECHNIQUE: Digital examination. Mediolateral oblique (MLO) and craniocaudad (CC) views of the breast were obtained. CAD: CAD was performed on this study. COMPARISON: 03/15/2019 FINDINGS: Breast Composition: There are scattered areas of fibroglandular density. There are no dominant masses or suspicious calcifications. No other significant abnormalities are identified. BI/SCREEN MAMM (CAD) W/NILTON UNI R IMPRESSION: Stable bilateral screening mammogram. ASSESSMENT CATEGORY: BIRADS Category 2: Benign. A letter regarding these results will be sent to the patient by the facility within 30 days. FOLLOW UP RECOMMENDATION: Yearly follow up mammogram recommended. (A) [id number] Approximately 10% of breast cancers are not detected by mammography. A normal mammogram should not delay biopsy of a clinically suspicious abnormality. [id number] Electronically Signed: Calderon Moon MD at 17:13 EDT , Service support ,
--- NOTE | 2020-05-01 13:04 | BD_ITS ---
STUDY: DUAL ENERGY X-RAY ABSORPTIOMETRY / DXA REASON FOR EXAM: Female, 80 years old. Age of darrian 52. Pat is 122.9# and 67 and quot; a loss of .5-1 and quot; per pat. Patient takes Arimidex for hx of left breast CA with mastectomy. Takes 1200 mg of calcium and vit D. Past hx of taking Actonel now she is on Prolia and has had about 6 injections thus far of Prolia. Hx of L1 Comp f''x''s and others per pat. Mom and sister have osteo. Exercises moderatly. TECHNIQUE: Bone Mineral Density (BMD) measurements of lumbar spine and bilateral hips were obtained. COMPARISON: Comparison is made with prior study dated 04/13/2018. FINDINGS: Lumbar Spine (L1-L4): g/cm2 (0.984) / T-score (-1.6) / Z-score (0.2) Findings are suggestive of osteopenia with a moderate fracture risk. Left Femur Total: g/cm2 (0.818) / T-score (-1.5) / Z-score (0.4) Left Femoral Neck: g/cm2 (0.738) / T-score (-2.2) / Z-score (-0.1) Right Femur Total: g/cm2 (0.731) / T-score (-2.2) / Z-score (-0.3) Right Femoral Neck: g/cm2 (0.710) / T-score (-2.4) / Z-score (-0.3) The T-Scores on the most recent prior examination were: Lumbar Spine (L1-L4): There has been worsening of bone density since the previous examination. Left Femur Total: which represents an improvement of 2.8%. Right Femur Total: which represents an improvement of 3.8%. BD/Dexa Bone Density Study IMPRESSION: The patient is considered osteopenic as outlined below according to World [place] Organization (WHO) criteria with a high fracture risk. There has been improvement of bone density since the previous examination. Reference Information: The T-score is the number of standard deviations above or below the standard which is normal for young adults at their peak bone mineral density. The World Health Organization (WHO) interprets the T-scores as follows: Above -1 Normal bone density Between -1 and -2.5 Osteopenia Equal to / or below -2.5 Osteoporosis As a practical clinical guideline, osteopenia may be graded as follows: Mild -1 through -1.5 Moderate -1.6 through -2.0 Severe -2.1 through -2.4 The Z-score is the number of standard deviations above or below age-matched controls. A Z-score of less than -1.5 would be considered abnormal. References: 1. NIH Osteoporosis and Related Bone Diseases http://www.osteo.org 2. International Society for Clinical Densitometry http://www.iscd.org 3. National Osteoporosis Foundation http://www.nof.org Electronically Signed: Edenilson Crisostomo, at 13:04 EDT , Service support ,
[2020-05-01 15:05] LABS: Vitamin B12 443 pg/mL (211-911)
== END | disposition home or self-care (01) ==
PROVIDERS: Nurse Practitioner Family; PCP Internal Medicine; Referring Provider Internal Medicine Hematology & Oncology; Visit Provider Internal Medicine Hematology & Oncology
DX: D64.9 Anemia, unspecified (principal); C50.212 Malignant neoplasm of upper-inner quadrant of left female breast; N95.9 Unspecified menopausal and perimenopausal disorder; M85.80 Other specified disorders of bone density and structure, unspecified site; Z12.31 Encounter for screening mammogram for malignant neoplasm of breast
CPT/HCPCS: 36415; 77063; 77067; 77080; 82607

== ENCOUNTER → 2020-06-18 | Outpatient (CLI) | payer MEDICARE, OTHER, SELFPAY ==
[2020-04-12 16:04] VITALS: BMI 18.9
[2020-06-11 11:20] VITALS: BMI 18.8
[2020-06-18 12:19] LABS: Anion Gap 0 (5-15); BUN 28 mg/dL (7-18); BUN/Creat Ratio 33.8 RATIO (10-20); Calcium,Total 8.5 mg/dL (8.5-10.1); Chloride 99 mmol/L (98-107); Creatinine, Serum 0.83 mg/dL (0.55-1.02); EST Glomerular Filtration Rate 71 mL/min (>60); Est Glom Filt Rate - Afr Amer 86 mL/min (>60); Glucose 90 mg/dL (74-106); Potassium 4.5 mmol/L (3.5-5.1); Sodium Level 131 mmol/L (136-145)
[2020-06-18 13:00] LABS: Urine Sodium 21 mmol/L (Not Establ.)
[2020-06-18 13:07] LABS: Osmolality, Urine 587 mOsm/KG
== END | disposition home or self-care (01) ==
PROVIDERS: PCP Internal Medicine; Referring Provider Internal Medicine Nephrology; Visit Provider Internal Medicine Nephrology
DX: E87.1 Hypo-osmolality and hyponatremia (principal)
CPT/HCPCS: 36415; 80048; 83935; 84300

== ENCOUNTER → 2020-11-05 07:52 | Outpatient (CLI) | payer MEDICARE, OTHER, SELFPAY ==
[2020-09-20 15:55] VITALS: BMI 18.9
[2020-11-05 08:36] LABS: Hematocrit 37.6 % (37-47); Hemoglobin 12.5 g/dL (12.0-15.0); Mean Corp Hgb Conc 33.2 g/dL (32-36); Mean Corpuscular Hgb 31.5 pg (27.0-32.0); Mean Corpuscular Volume 94.7 fL (81-99); Mean Platelet Vol. 10.1 fl (6.2-12.0); Platelet Count 230 K/mm3 (150-450); Red Blood Count 3.97 M/mm3 (4.2-5.4); White Blood Count 3.8 K/mm3 (4.4-11.0)
[2020-11-05 08:40] LABS: Urine Sodium 39 mmol/L (Not Establ.)
[2020-11-05 08:53] LABS: Osmolality, Urine 315 mOsm/KG
[2020-11-05 09:15] LABS: Anion Gap 3 (5-15); BUN 15 mg/dL (7-18); BUN/Creat Ratio 18.3 RATIO (10-20); Calcium,Total 8.9 mg/dL (8.5-10.1); Chloride 100 mmol/L (98-107); Creatinine, Serum 0.82 mg/dL (0.55-1.02); EST Glomerular Filtration Rate 71 mL/min (>60); Est Glom Filt Rate - Afr Amer 86 mL/min (>60); Glucose 91 mg/dL (74-106); Potassium 4.4 mmol/L (3.5-5.1); Sodium Level 131 mmol/L (136-145)
== END ==
PROVIDERS: PCP Internal Medicine; Referring Provider Psychiatry & Neurology Neurology; Visit Provider Psychiatry & Neurology Neurology
DX: D64.9 Anemia, unspecified (principal); E22.2 Syndrome of inappropriate secretion of antidiuretic hormone; R53.83 Other fatigue; I10 Essential (primary) hypertension
CPT/HCPCS: 36415; 80048; 83935; 84300; 85027

== ENCOUNTER → 2020-12-24 08:04 | Outpatient (CLI) | payer MEDICARE, OTHER, SELFPAY ==
[2020-12-18 16:15] VITALS: BMI 18.9
[2020-12-24 09:32] LABS: Cholesterol 210 mg/dL (200); High Density Lipoprotein 103 mg/dL; Triglycerides 69 mg/dL; Very Low Density Lipoprotein 14 mg/dL (5-40)
== END ==
PROVIDERS: PCP Internal Medicine; Referring Provider Psychiatry & Neurology Neurology; Visit Provider Psychiatry & Neurology Neurology
DX: G45.9 Transient cerebral ischemic attack, unspecified (principal); I67.9 Cerebrovascular disease, unspecified
CPT/HCPCS: 36415; 80061

== ENCOUNTER 2021-03-29 13:00 | Outpatient (RCR) | payer MEDICARE, OTHER, SELFPAY ==
[2020-12-10 13:44] VITALS: BMI 19.2
--- NOTE | 2020-12-17 13:05 | HP.PTEVAL_ITS ---
Patient's Visit Information JULIANNA TUCKER is a 80 year old F referred to Physical Therapy by Dr. Rochelle Brandt MD with a diagnosis of BALANCE DISORDER. Date of Evaluation: 12/17/20 Physical Therapist: Jorge Pedro, PT, Cert MDT, OCS - Visit Plan Frequency: 2x /Week Duration: 4 Weeks Plan: PT INTERVENTIONS BALANCE TRAINING,STRENGTHNEING,ENDURANCE AND FUNCTIONAL STRENGTHENING - Subjective This 80 y/o female presents to physical therapy with balance disorder. Patient has had balance issues many years . Patient fell hit head 2012 ,had Rehb. Patient has h/o of motion sensitivity. Patient has no recent fall. Patient get naused,denies tinnutus,denies bryon but off balance. Patient walked one mile today. Patient has no cardiac issues . Patient has difficuctly on deisy surfaces ,became nausted with inscident in winter. Patient is taking meclozine- antivert.Patient has h/o compression lumbar fractue. Patient condition affect QOL and function. SOCIAL: . VOCATION : retired - Objective POSTURE: mild foward posture. GAIT: reciprocal pattern. BALANCE:good-. MMT: 4/5 quads/hams/hip/ankle 4/5. FLEXABLITY: ankle WFL dorsiflexion,hamstrings min tight. SLS: 30SEC EA - Balance Scores Functional Gait Assessment Score: 19 % Disability: 36.6700 CATSIB Score (Max score 120 seconds): 95 - Goals Goal 1:: I with HEP Goal Time Frame: 4-6 Weeks Goal 2:: Improve functional gait assessment score by 5 points or > to improve balance and gait Goal Time Frame: 4-6 Weeks Goal 3:: Patient inprove CATSIB by 5 points or> to improve function and balance Goal Time Frame: 4-6 Weeks Goal 4:: Patient to improve LFES score by 5 points or> to improve function. Goal Time Frame: 4-6 Weeks - Rehabilitation Potential Physical Therapy Diagnosis: This balance has balance disorder which affects gait gait and function with somatosenosry deficits and motion sensitivity thus will benfit from skilled PT Rehabilitation Potential: Good - Anticipated Interventions Patient/Client Instruction: Educate patient on: Condition, Plan of Care For the Purpose of:: To decrease pain, To improve muscle performance and motor function, To increase tolerance to activity/condition/position, To improve perfo rmance and independence with ADL's, To improve ability of physical actions for home/community/work/leisure, To improve endurance, To improve balance Therapeutic Exercise to Include: Strength training, Endurance training, Balance training, Gait and locomotor training Comment: BLE For the Purpose of:: To improve muscle performance and motor function, To improve ability to perform ADL's, To increase tolerance to activity/condition/position, To improve performance and independence with ADL's, To improve ability of physical actions for home/community/work/leisure, To increase flexibility/ROM, To reduce risk of recurrence Thank you for the opportunity to evaluate your patient. For Medicare and Medicare HMO plans, please review the plan of care and approve it. It will need to be FAXED BACK to us at [phone] for Medicare purposes. For Medicare only, by signing this I certify the plan of care. Please let me know if there are questions or concerns regarding this plan of care. Physician Signature: Date:
--- NOTE | 2021-01-22 15:00 | HP.PTREVAL ---
Dr. Rochelle Brandt MD, It has been my pleasure to treat JULIANNA TUCKER over the last 8 visits for BALANCE DISORDER. Please see the progress note below for an update on the physical therapy plan of care! Subjective: Seen ortho right shoulder. Patient thinks PT is helping with balance Objective/Function: SEE BALANCE TESTING ABOVE-FUNCTIONAL GAIT ASSESSMENT ,CATSIB. MMT: QUADS/HAMS/HIP 4/5. GAIT :NORMAL NOLAN. STAIRS: ALTERNATE WITH RAIL Plan Plan: CONT WITH POC 2XWEEK FOR 4 VWEEKS\\. PT INTERVENTIONS BALANCE TRAINING, STRENGTHNEING, ENDURANCE AND FUNCTIONAL STRENGTHENING Goals Goal 1:: I with HEP Goal Time Frame: 4-6 Weeks Goal 2:: Improve functional gait assessment score by 5 points or > to improve balance and gait Goal Time Frame: 4-6 Weeks Goal 3:: Patient inprove CATSIB by 5 points or> to improve function and balance Goal Time Frame: 4-6 Weeks Goal 4:: Patient to improve LFES score by 5 points or> to improve function. Goal Time Frame: 4-6 Weeks Anticipated Interventions Patient/Client Instruction: Educate patient on: Condition, Plan of Care For the Purpose of:: To decrease pain, To improve muscle performance and motor function, To increase tolerance to activity/condition/position, To improve performance and independence with ADL's, To improve ability of physical actions for home/community/work/leisure, To improve endurance, To improve balance Therapeutic Exercise to Include: Strength training, Endurance training, Balance training, Gait and locomotor training Comment: BLE For the Purpose of:: To improve muscle performance and motor function, To improve ability to perform ADL's, To increase tolerance to activity/condition/position, To improve performance and independence with ADL's, To improve ability of physical actions for home/community/work/leisure, To increase flexibility/ROM, To reduce risk of recurrence Please do not hesitate to contact me at [phone] by phone or if you have questions or concerns regarding this new plan of care! Sincerely, Jorge Pedro, PT, Cert MDT, OCS
--- NOTE | 2021-03-05 14:32 | HP.PTREVAL_ITS ---
Dr. Rochelle Brandt MD, It has been my pleasure to treat JULIANNA TUCKER over the last 17 visits for BALANCE DISORDER. Please see the progress note below for an update on the physical therapy plan of care! Subjective: Overall symptoms are getting better with balance as well as strengthening but I always balance issues. No falls recently ,but 2weeks ago had mechanical fall bag got got Objective/Function: POSTUTRE: mild forward posture. NEURO: denies parathesia/tingling. MMT: quads/hams 4/5,hip flexion 4/5 ,ankle 4/5. GAIT: reciprocal pattern Plan Plan: 2X/WEEK FOR 3WEEKS. PT INTERVENTIONS PROGRESSIVE BALANCE TRAINING, STRENGTHNEING, ENDURANCE AND FUNCTIONAL STRENGTHENING Goals Goal 1:: I with HEP Goal Time Frame: 4-6 Weeks Goal Progress: Progressing Goal 2:: Improve functional gait assessment score by 5 points or > to improve balance and gait Goal Time Frame: 4-6 Weeks Goal Progress: Progressing Goal 3:: Patient inprove CATSIB by 5 points or> to improve function and balance Goal Time Frame: 4-6 Weeks Goal Progress: Goal Met Goal 4:: Patient to improve LFES score by 10 points or> to improve function.(new goal) Goal Time Frame: 4-6 Weeks Goal 5:: Improve SLS 30sec x2 unsupported.( new goal) Anticipated Interventions Patient/Client Instruction: Educate patient on: Condition, Plan of Care For the Purpose of:: To decrease pain, To improve muscle performance and motor function, To increase tolerance to activity/condition/position, To improve performance and independence with ADL's, To improve ability of physical actions for home/community/work/leisure, To improve endurance, To improve balance Therapeutic Exercise to Include: Strength training, Endurance training, Balance training, Gait and locomotor training Comment: BLE For the Purpose of:: To improve muscle performance and motor function, To improve ability to perform ADL's, To increase tolerance to activity/condition/position, To improve performance and independence with ADL's, To improve ability of physical actions for home/community/work/leisure, To i ncrease flexibility/ROM, To reduce risk of recurrence Please do not hesitate to contact me at [phone] by phone or if you have questions or concerns regarding this new plan of care! Sincerely, Jorge Pedro, PT, Cert MDT, OCS
--- NOTE | 2021-03-29 13:27 | HP.PTDCSUM ---
It has been my pleasure to treat JULIANNA TUCKER referred by Dr. Rochelle Brandt MD, with the diagnosis of BALANCE DISORDER for a total of 22 visit(s). Discharge Date: 03/29/21 Please see the following information for a summary of their discharge status. Subjective: Balance is doing much better ,but I have order for my right knee right knee Pain Intensity (Out of 10): 4 % Improvement: 40 Objective/Function: POSTURE: WFL. GAIT: reciprocal pattern mild decrease stance time. BLANCE: GOOD- Goal 1:: I with HEP Goal Progress: Goal Met Goal 2:: Improve functional gait assessment score by 5 points or > to improve balance and gait Goal Progress: Goal Met Goal 3:: Patient inprove CATSIB by 5 points or> to improve function and balance Goal Progress: Goal Met Goal 4:: Patient to improve LFES score by 10 points or> to improve function.(new goal) Goal Progress: Goal Met Goal 5:: Improve SLS 30sec x2 unsupported.( new goal) Goal Progress: Goal Met Plan: D/C PLAN TO GET EVALUATED FOR RIGHT KNEE PAIN If there are questions or concerns regarding this patient's physical therapy, please feel free to call me at [phone]. Thank you for the referral of this patient. Sincerely, Jorge Pedro PT, Cert MDT, OCS
== END 2021-03-29 19:00 | disposition home or self-care (01) ==
LOC: PT 13:00
PROVIDERS: PCP Internal Medicine; Referring Provider Internal Medicine; Visit Provider Internal Medicine
DX: R26.89 Other abnormalities of gait and mobility (principal)
CPT/HCPCS: 97110; 97162; 97530

== ENCOUNTER 2021-04-12 14:47 | Emergency (ER) | payer MEDICARE, OTHER, SELFPAY ==
[2021-03-25 12:14] VITALS: BMI 19.1
[2021-04-12 14:48] VITALS: BP 142/78; PULSE 69; RESP 18; TEMP 36.3; O2SAT 100; BMI 18.8
[2021-04-12 17:16] LABS: Absolute Lymphocyte Count 1.38 X10^3/uL (0.83-4.51); Absolute Neutrophil Count 1.9 X10^3/uL (2.0-7.7); Basophil# 0.03 X10^3/uL; Basophil% 0.7 % (0-1); Eosinophil# 0.41 X10^3/uL; Eosinophils% 9.2 % (0-5); Hematocrit 36.5 % (37-47); Hemoglobin 12.1 g/dL (12.0-15.0); Lymphocyte # 1.38 X10^3/ul (0.83-4.51); Lymphocyte % 30.9 % (19-41); Mean Corp Hgb Conc 33.2 g/dL (32-36); Mean Corpuscular Hgb 31.7 pg (27.0-32.0); Mean Corpuscular Volume 95.5 fL (81-99); Mean Platelet Vol. 9.8 fl (6.2-12.0); Monocyte# 0.75 X10^3/uL; Monocyte% 16.8 % (0-10); NRBC Flagged by Analyzer 0 % (0-5); Neutrophil # 1.89 X10^3/uL (2.7-7.7); Neutrophil % 42.2 % (47-70); Platelet Count 266 K/mm3 (150-450); RBC Distribution Width CV 13.3 % (11.6-14.6); RBC Distribution Width SD 46.9 fl (35.1-43.9); Red Blood Count 3.82 M/mm3 (4.2-5.4); White Blood Count 4.5 K/mm3 (4.4-11.0)
[2021-04-12] MEDS: 0.9% Normal Saline 1,000 ML 1000 ML IV (17:20)
--- NOTE | 2021-04-12 17:20 | EX.ED.GENINJ ---
HPI History of Present Illness Chief Complaint: Diarrhea Informant: patient Narrative Narrative: Patient is a 81-year-old female who presents to the emergency department for suspected dehydration. She states that she has had diarrhea over the past month. She states that she has a parasite infection. She is being treated with Flagyl. She has 1 more day of treatment. She is not sure what parasite she has. She denies any recent travel or antibiotic use prior to the Flagyl. She has had some nausea since starting the Flagyl as well as abdominal discomfort. She denies any significant pain right now. No fevers or chills. No known sick contacts. She has not been coughing. No chest pain or shortness of breath. She states that she has been feeling very fatigued and not wanting to do anything lately. She has been try to drink plenty water to stay hydrated. She denies any urinary symptoms. No blood or black tarry stools. She states over the past week she has had around 7-8 bowel movements per day which is improved. [facility] Medical History (Updated 04/12/21 @ 18:[address] 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) Chronic hyponatremia Compression fracture of L1 lumbar vertebra Dehydration Diverticulitis Dysequilibrium GERD (gastroesophageal reflux disease) history of blood transfusion IBS (irritable bowel syndrome) Intestinal disease, parasitic Lichen sclerosus Migraine Nonrheumatic mitral (valve) prolapse Osteopenia Osteopenia Osteopenia 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 Ovarian cyst Paroxysmal atrial fibrillation Paroxysmal atrial flutter SIADH (syndrome of inappropriate ADH production) Syncope (07/13/19) Tachycardia Tendinitis of right shoulder TIA (transient ischemic attack) Vaginal dryness Weakness Home Medications calcium carbonate-vitamin D3 1 tablet PO DAILY 07/13/19 [History Last Taken 11/11/19] cholecalciferol (vitamin D3) 1,000 unit PO DAILY 07/13/19 [History Last Taken 11/11/19] denosumab 60 mg/mL subcutaneous syringe 60 mg SC [id number] 08/16/19 [History Last Taken Unknown] meclizine 12.5 mg PO TID PRN PRN #20 tablet 11/14/19 [Rx Last Taken Unknown] promethazine 12.5 mg PO BID PRN #20 tablet 11/14/19 [Rx Last Taken Unknown] magnesium oxide 400 mg (241.3 mg magnesium) tablet 400 mg PO DAILY #90 tablet 12/09/19 [Rx Last Taken Unknown] urea 15 gram oral powder packet 2 pack PO BID 02/23/20 [History Last Taken Unknown] clobetasol 0.05 % topical cream 1 applic TOPICAL .COMPLEX #15 gm 05/03/20 [Rx Last Taken Unknown] esomeprazole magnesium 40 mg capsule,delayed release See Rx Instructions .ROUTE .COMPLEX #90 cap 09/10/20 [Rx Last Taken Unknown] apixaban 5 mg tablet 5 mg PO BID #180 tablet 09/20/20 [Rx Last Taken Unknown] metoprolol succinate 25 mg tablet,extended release 24 hr 12.5 mg PO BREAKFAST #45 tablet 09/20/20 [Rx Last Taken Unknown] metoprolol succinate 25 mg tablet,extended release 24 hr 25 mg PO QHS #90 tablet 09/20/20 [Rx Last Taken Unknown] dofetilide 250 mcg capsule 250 mcg PO Q12 #180 cap 10/25/20 [Rx Last Taken Unknown] atorvastatin 10 mg tablet 10 mg PO DAILY #30 tablet 12/24/20 [Rx Last Taken Unknown] anastrozole 1 mg tablet 1 mg PO QHS #90 tab 03/04/21 [Rx Last Taken Unknown] fludrocortisone 0.1 mg tablet 0.1 mg PO .M/W/ #12 tablet 03/19/21 [Rx Last Taken Unknown] Allergy/AdvReac Type Severity Reaction Status Date / Time grass pollen Allergy Severe Unknown Verified 04/12/21 14:53 Penicillins Allergy Severe Anaphylaxis Verified 04/12/21 14:53 mold Allergy Unknown Verified 04/12/21 14:53 pollen extracts Allergy Unknown Verified 04/12/21 14:53 erythromycin base AdvReac Severe Unknown Verified 04/12/21 14:53 lansoprazole [From Prevacid] AdvReac Severe Nausea/Vom/ Verified 04/12/21 14:53 Diarrhea adhesive tape AdvReac Intermediate Rash Verified 04/12/21 14:53 CANTALOPE Allergy Severe Anaphylaxis Uncoded 04/12/21 14:53 Family History Father Unknown family medical history Mother Uterine cancer Thyroid disorder Kidney disease Hypertension CHF (congestive heart failure) Arthritis Surgical History H/O breast biopsy H/O left mastectomy H/O lymph node biopsy History of cataract surgery History of colonoscopy (05/2019) History of dilation and curettage History of esophagogastroduodenoscopy (EGD) (05/2019) History of left heart catheterization (09/2012) History of radiofrequency ablation (RFA) procedure for cardiac arrhythmia (08/2013) History of removal of ovarian cyst Social History Smoking Status: Never smoker alcohol intake: current alcohol intake frequency: holidays/special occasions only substance use type: does not use caffeine: Yes what type of physical activity do you participate in: walking and yoga frequency: 3-4 times per week seatbelt use: always do you feel safe at home: Yes additional social history: -Tony Patient and are both retired ROS ROS ED Constitutional Constitutional ED: Denies chills or fever(s) Eyes Eyes: Denies change in vision ENT ENT ED: Denies epistaxis or rhinorrhea Cardiovascular Cardiovascular: Denies chest pain or palpitations Respiratory/Chest Respiratory/Chest: Denies cough, dyspnea or dyspnea on exertion Gastrointestinal Gastrointestinal: Reports abdominal pain, diarrhea and nausea; Denies constipation, melena or vomiting Genitourinary Genitourinary ED: Denies dysuria, hematuria or urinary frequency Musculoskeletal Musculoskeletal: Denies back pain or neck pain Integumentary Denies rash Neurologic Neurologic: Reports weakness; Denies dizziness or headache(s) EXAM Physical Exam Const Vital Signs: 04/12/21 14:48 04/12/21 17:21 04/12/21 18:34 Temperature 97.3 F L Temperature Source Temporal Pulse Rate 69 66 78 Respiratory Rate 18 18 16 Blood Pressure 142/78 H 171/77 H Blood Pressure Mean 99 Pulse Ox 100 98 99 Oxygen Delivery Method Room Air Positive well nourished and well developed General Appearance ED: well developed and NAD HEENT Reports normocephalic and head/scalp atraumatic Eyes PERRL and EOMs intact bilaterally Chest Wall inspection of chest normal Resp normal respiratory effort and clear to auscultation bilaterally Auscultation: Negative for rales, rhonchi or wheezes Cardio regular rate, regular rhythm and no murmurs GI normal to inspection, nondistended, normoactive bowel sounds and non-tender Palpation: soft; Negative for guarding or rebound tenderness present Extremity normal to inspection General Extremety ED: Negative for edema or tenderness General Extremity: Negative for edema Neuro no sensory deficits noted Sensorium / Orientation: alert Motor Exam: strength 5/5 throughout Psych mental status grossly normal Skin no rashes or lesions noted MDM MDM MDM Narrative Medical decision making narrative: Patient presents to the emergency department for diarrhea and suspected dehydration. Upon arrival to the ED she is in no acute distress. Vital signs within normal limits. She has a benign physical exam. Will check basic lab work. We will start IV fluids. She is still currently on antibiotics and I do not think stool cultures are indicated at this time until she completes antibiotics. Patient's lab work did not reveal a high white blood cell count. She is not anemic. Her sodium is low at 128 but this is the same as last lab work. She has had hyponatremia before in the past and is typically right around the 131 range. Otherwise no other significant acute abnormality on electrolytes. She does appear improved on reexamination. This time I do feel she is stable for discharge home. Recommend symptomatic treatment otherwise. Return precautions are reviewed with her. She understands and is agreeable this plan. She is to follow-up with her PCP otherwise. Lab Data Labs: Laboratory Results - last 24 hr 04/12/21 04/12/21 15:35 15:35 WBC 4.5 RBC 3.82 L Hgb 12.1 Hct 36.5 L MCV 95.5 MCH 31.7 MCHC 33.2 RDW Std Deviation 46.9 H RDW Coeff of Idania 13.3 Plt Count 266 MPV 9.8 Immature Gran % (Auto) 0.200 Neut % (Auto) 42.2 L Lymph % (Auto) 30.9 Custer % (Auto) 16.8 H Eos % (Auto) 9.2 H Baso % (Auto) 0.7 Absolute Neuts (auto) 1.9 L Absolute Lymphs (auto) 1.38 Nucleated RBC % 0 Sodium 128 L Potassium 3.8 Chloride 97 L Carbon Dioxide 27.0 Anion Gap 4 L BUN 18 Creatinine 0.71 Estim Creat Clear Calc 39.20 Est GFR (MDRD) Af Amer 102 Est GFR (MDRD) Non-Af 84 BUN/Creatinine Ratio 25.2 H Glucose 92 Calcium 7.9 L Total Bilirubin 0.40 AST 24 ALT 27 Alkaline Phosphatase 60 Total Protein 6.8 Albumin 3.0 L Globulin 3.8 Albumin/Globulin Ratio 0.8 L Discharge Plan Triage Chief Complaint: Diarrhea Other Complaint: Nausea/Vomiting/Diarrhea ED Provider: Jeremiah oJ Dx/Rx/DC Orders Clinical Impression: Diarrhea, Hyponatremia Instructions: ED Diarrhea, Unknown Cause, ED Hyponatremia Prescriptions: No Action Prolia 60 mg/mL syringe 60 mg SC [id number] RF: 0 urea 15 gram powder in packet 2 pack PO BID RF: 0 clobetasol 0.05 % cream 1 applic TOPICAL .COMPLEX Qty: 15 RF: 2 apixaban 5 mg tablet 5 mg PO BID Qty: 180 RF: 4 metoprolol succinate 25 mg tablet extended release 24 hr 25 mg PO QHS Qty: 90 RF: 3 metoprolol succinate 25 mg tablet extended release 24 hr 12.5 mg PO BREAKFAST Qty: 45 RF: 3 atorvastatin 10 mg tablet 10 mg PO DAILY Qty: 30 RF: 3 fludrocortisone 0.1 mg tablet 0.1 mg PO .// Qty: 12 RF: 4 calcium carbonate-vitamin D3 1 EACH tablet 1 tablet PO DAILY RF: 0 cholecalciferol (vitamin D3) 400 UNIT capsule 1,000 unit PO DAILY RF: 0 meclizine 12.5 MG tablet 12.5 mg PO TID PRN PRN (Reason: Vertigo) Qty: 20 RF: 0 promethazine 12.5 MG tablet 12.5 mg PO BID PRN (Reason: Nausea) Qty: 20 RF: 0 magnesium oxide 400 mg (241.3 mg magnesium) tablet 400 mg PO DAILY Qty: 90 RF: 3 esomeprazole magnesium 40 mg capsule,delayed release(DR/EC) See Rx Instructions .ROUTE .COMPLEX Qty: 90 RF: 3 dofetilide 250 mcg capsule 250 mcg PO Q12 Qty: 180 RF: 3 anastrozole 1 mg tablet 1 mg PO QHS Qty: 90 RF: 3 Primary Care Provider: Rochelle Brandt Referrals: Rochelle Brandt MD [Primary Care Provider] - 3-5 Days if not improving Disposition Disposition: Home, Self Care Discharge Date/Time: 04/12/21 18:36
[2021-04-12 17:21] VITALS: PULSE 66; RESP 18; O2SAT 98
[2021-04-12 17:27] LABS: ALB/GLOB Ratio 0.8 RATIO (0.9-2.4); AST(SGOT) 24 U/L (15-37); Alanine Aminotransfer ALT/SGPT 27 U/L (13-56); Alkaline Phosphatase 60 U/L (45-117); Anion Gap 4 (5-15); BUN 18 mg/dL (7-18); BUN/Creat Ratio 25.2 RATIO (10-20); Calcium,Total 7.9 mg/dL (8.5-10.1); Chloride 97 mmol/L (98-107); Creatinine, Serum 0.71 mg/dL (0.55-1.02); EST Glomerular Filtration Rate 84 mL/min (>60); Est Glom Filt Rate - Afr Amer 102 mL/min (>60); Globulin 3.8 g/dL (2.2-4.2); Glucose 92 mg/dL (74-106); Potassium 3.8 mmol/L (3.5-5.1); Protein, Total 6.8 g/dL (6.4-8.2); Sodium Level 128 mmol/L (136-145)
[2021-04-12 18:34] VITALS: BP 171/77; PULSE 78; RESP 16; O2SAT 99
== END 2021-04-12 18:36 | disposition home or self-care (01) ==
PROVIDERS: Emergency Provider Emergency Medicine; PCP Internal Medicine
DX: R19.7 Diarrhea, unspecified (principal); E87.1 Hypo-osmolality and hyponatremia; K21.9 Gastro-esophageal reflux disease without esophagitis; I48.0 Paroxysmal atrial fibrillation; Z86.73 Personal history of transient ischemic attack (TIA), and cerebral infarction without residual deficits; Z79.02 Long term (current) use of antithrombotics/antiplatelets; Z79.899 Other long term (current) drug therapy
CPT/HCPCS: 80053; 85025; 96360; 99283; J7030; A4216

== ENCOUNTER → 2021-05-08 12:41 | Outpatient (CLI) | payer MEDICARE, OTHER, SELFPAY ==
[2021-03-25 11:24] VITALS: BMI 19.1
--- NOTE | 2021-05-08 12:47 | BI_ITS ---
MAMMOGRAPHY - UNILATERAL SCREENING: RIGHT BREAST REASON FOR EXAM: Female, 81 years old. Routine annual screening examination (unilateral). PERTINENT HISTORY: Personal history of breast cancer. Prior left mastectomy. Sister with breast cancer. TECHNIQUE: Digital unilateral breast nilton (3D mammographic acquisition) in the CC and MLO projections. 2-D mediolateral oblique (MLO) and craniocaudad (CC) views of both breasts were obtained. CAD: Full Field Digital Mammography with Computer Added Detection was performed. COMPARISON: Comparison is made with prior examination 05/01/2020 and 03/15/2019. FINDINGS: Breast Composition: There are scattered areas of fibroglandular density. There are no dominant masses or suspicious calcifications. No other significant abnormalities are identified. There has been no significant change since the prior study. BI/SCREEN MAMM (CAD) W/NILTON UNI R IMPRESSION: Stable unilateral screening mammogram. Yearly follow-up mammogram recommended. (A) ASSESSMENT CATEGORY: BIRADS Category 1: Negative. A letter regarding these results will be sent to the patient by the facility within 30 days. Approximately 10% of breast cancers are not detected by mammography. A normal mammogram should not delay biopsy of a clinically suspicious abnormality. [id number] Electronically Signed: Edenilson Crisostomo MD at 13:22 EDT , Service support ,
== END ==
PROVIDERS: PCP Internal Medicine; Referring Provider Internal Medicine Hematology & Oncology; Visit Provider Internal Medicine Hematology & Oncology
DX: Z12.31 Encounter for screening mammogram for malignant neoplasm of breast (principal); C50.212 Malignant neoplasm of upper-inner quadrant of left female breast
CPT/HCPCS: 77063; 77067

== ENCOUNTER 2021-05-17 21:06 | Emergency (ER) | payer MEDICARE, OTHER, SELFPAY ==
[2021-05-17 21:07] VITALS: BP 170/87; PULSE 85; RESP 16; TEMP 36; O2SAT 97; BMI 18.4
--- NOTE | 2021-05-17 21:20 | EKG12_ITS ---
Test Reason : DYSRHYTHMIA Blood Pressure : / mmHG Vent. Rate : 082 BPM Atrial Rate : 082 BPM P-R Int : 226 ms QRS Dur : 108 ms QT Int : 432 ms P-R-T Axes : 087 030 062 degrees QTc Int : 504 ms Sinus rhythm with 1st degree A-V block with occasional Premature ventricular complexes Prolonged QT Abnormal ECG Confirmed by VALDO THAO, ARLEN ([id number]), editor & co founder AMAYA COVARRUBIAS ([id number]) on 05/21/2021 8:41:05 AM Referred By: ANA/ALAINA Confirmed By:PRATIBHA LYLE MD
[2021-05-17 21:27] VITALS: PULSE 84; RESP 14; O2SAT 98
[2021-05-17 21:38] LABS: Absolute Lymphocyte Count 2.02 X10^3/uL (0.83-4.51); Basophil# 0.02 X10^3/uL; Basophil% 0.4 % (0-1); Eosinophil# 0.01 X10^3/uL; Eosinophils% 0.2 % (0-5); Hemoglobin 13.4 g/dL (12.0-15.0); Lymphocyte # 2.02 X10^3/ul (0.83-4.51); Lymphocyte % 37.9 % (19-41); Mean Corp Hgb Conc 35.3 g/dL (32-36); Mean Corpuscular Hgb 31.9 pg (27.0-32.0); Mean Corpuscular Volume 90.5 fL (81-99); Mean Platelet Vol. 9.2 fl (6.2-12.0); Monocyte# 0.27 X10^3/uL; Monocyte% 5.1 % (0-10); NRBC Flagged by Analyzer 0 % (0-5); Neutrophil % 56.2 % (47-70); Platelet Count 275 K/mm3 (150-450); RBC Distribution Width CV 12.8 % (11.6-14.6); RBC Distribution Width SD 42.5 fl (35.1-43.9); White Blood Count 5.3 K/mm3 (4.4-11.0)
[2021-05-17] MEDS: Ondansetron 4 MG/2 ML Vial IV (21:39)
[2021-05-17 21:40] LABS: Differential Comment SCANNED; Reactive Lymphocyte 1+
--- NOTE | 2021-05-17 21:44 | EDS_ITS ---
HPI HPI - GI History of Present Illness Chief Complaint: Nausea/Vomiting/Diarrhea Informant: patient and spouse/S.O. Abdominal Pain/Flank Pain Onset: Today Context: Sudden Onset Timing: Intermittent Quality: Aching Location: Diffuse Current Severity: Mild Maximum Severity: Moderate Worsened by: Food Relieved by: Nothing Nausea/Vomiting/Emesis GI Symptom: Positive for Nausea and Vomiting (Patient states she has vomited 20 times since this morning) Onset: Today Diarrhea/Melena/Hematochezia GI Symptom: Positive for Diarrhea (X2 months) Onset: Month(s) (Diagnosed with a parasite infection. Treated with metronidazole for 2 weeks) Stool Quality: Positive for Loose Associated Symptoms Associated Symptoms: Negative for Dysuria, Frequency and Hematuria Narrative Narrative: Patient is an elderly woman with multiple medical problems including CVA, paroxysmal atrial fibrillation, TIA, breast cancer on the left, and SIADH who presents with vomiting x20 times since this morning. She denies hematemesis or coffee-ground emesis. She does report dry mouth, lightheadedness. She had decreased urine output. She states she had diarrhea for 2 months. She was treated for parasite 2 months ago. She states the diarrhea did not change. She has not been scheduled for a flexible sigmoidoscopy or colonoscopy. She denies headache, visual, ocular auditory symptoms. She denies cardiac or respiratory symptoms. 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) Chronic hyponatremia Compression fracture of L1 lumbar vertebra Dehydration Diverticulitis Dysequilibrium GERD (gastroesophageal reflux disease) history of blood transfusion IBS (irritable bowel syndrome) Intestinal disease, parasitic Lichen sclerosus Migraine Nonrheumatic mitral (valve) prolapse Osteopenia Osteopenia Osteopenia 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 Ovarian cyst Paroxysmal atrial fibrillation Paroxysmal atrial flutter SIADH (syndrome of inappropriate ADH production) Syncope (07/13/19) Tachycardia Tendinitis of right shoulder TIA (transient ischemic attack) Vaginal dryness Weakness Home Medications calcium carbonate-vitamin D3 1 tablet PO DAILY 07/13/19 [History Last Taken 11/11/19] cholecalciferol (vitamin D3) 1,000 unit PO DAILY 07/13/19 [History Last Taken 02/28/20] denosumab 60 mg/mL subcutaneous syringe 60 mg SC [id number] 08/16/19 [History Last Taken Unknown] meclizine 12.5 mg PO TID PRN PRN #20 tablet 11/14/19 [Rx Last Taken Unknown] esomeprazole magnesium 40 mg capsule,delayed release See Rx Instructions .ROUTE .COMPLEX #90 cap 09/10/20 [Rx Last Taken Unknown] metoprolol succinate 25 mg tablet,extended release 24 hr 12.5 mg PO BREAKFAST #45 tablet 09/20/20 [Rx Last Taken Unknown] metoprolol succinate 25 mg tablet,extended release 24 hr 25 mg PO QHS #90 tablet 09/20/20 [Rx Last Taken Unknown] dofetilide 250 mcg capsule 250 mcg PO Q12 #180 cap 10/25/20 [Rx Last Taken Unknown] anastrozole 1 mg tablet 1 mg PO QHS #90 tab 03/04/21 [Rx Last Taken Unknown] fludrocortisone 0.1 mg tablet 0.1 mg PO .M/W/F #12 tablet 03/19/21 [Rx Last Taken Unknown] apixaban 5 mg tablet 5 mg PO BID tablet 05/08/21 [History Last Taken Unknown] clobetasol 0.05 % topical cream 1 applic TOPICAL .COMPLEX #15 gm 05/08/21 [Rx Last Taken Unknown] sodium chloride 1,000 mg soluble tablet 1,000 mg PO QD-QID 05/08/21 [History Last Taken Unknown] magnesium oxide 400 mg (241.3 mg magnesium) tablet 400 mg PO DAILY #90 tablet 05/13/21 [Rx Last Taken Unknown] ondansetron 4 mg PO Q8H PRN PRN #10 tab 05/17/21 [Rx Last Taken Unknown] Allergy/AdvReac Type Severity Reaction Status Date / Time cantaloupe Allergy Severe Anaphylaxis Verified 05/17/21 21:34 grass pollen Allergy Severe Unknown Verified 05/17/21 21:07 Penicillins Allergy Severe Anaphylaxis Verified 05/17/21 21:07 mold Allergy Unknown Verified 05/17/21 21:07 pollen extracts Allergy Unknown Verified 05/17/21 21:07 erythromycin base AdvReac Severe Unknown Verified 05/17/21 21:07 lansoprazole [From Prevacid] AdvReac Severe Nausea/Vom/ Verified 05/17/21 21:07 Diarrhea adhesive tape AdvReac Intermediate Rash Verified 05/17/21 21:07 Family History Father Unknown family medical history Mother Uterine cancer Thyroid disorder Kidney disease Hypertension CHF (congestive heart failure) Arthritis Surgical History H/O breast biopsy H/O left mastectomy H/O lymph node biopsy History of cataract surgery History of colonoscopy (05/2019) History of dilation and curettage History of esophagogastroduodenoscopy (EGD) (05/2019) History of left heart catheterization (09/2012) History of radiofrequency ablation (RFA) procedure for cardiac arrhythmia (08/2013) History of removal of ovarian cyst Social History Smoking Status: Never smoker alcohol intake: current alcohol intake frequency: holidays/special occasions only substance use type: does not use caffeine: Yes what type of physical activity do you participate in: walking and yoga frequency: 3-4 times per week seatbelt use: always do you feel safe at home: Yes additional social history: -Tony Patient and are both retired ROS ROS ED Constitutional Constitutional ED: Denies chills, fever(s), subjective or sweats ENT ENT ED: Denies ear pain, rhinorrhea or sore throat Cardiovascular Cardiovascular: Denies chest pain or palpitations Respiratory/Chest Respiratory/Chest: Denies cough, dyspnea, dyspnea on exertion or sputum Gastrointestinal Gastrointestinal: Reports abdominal pain, diarrhea, nausea and vomiting; Denies constipation or melena Genitourinary Genitourinary ED: Denies dysuria, hematuria or urinary frequency Musculoskeletal Musculoskeletal: Denies arthralgias, myalgias or neck pain Integumentary Denies rash Neurologic Neurologic: Reports weakness; Denies headache(s) or paresthesias Hematologic/Lymphatic Hematologic/Lymphatic: Denies easy bleeding or easy bruising EXAM Physical Exam Const Vital Signs: 05/17/21 21:07 05/17/21 21:27 05/17/21 22:23 Temperature 96.8 F L Temperature Source Temporal Pulse Rate 85 84 78 Respiratory Rate 16 14 17 Blood Pressure 170/87 H 139/85 H Blood Pressure Mean 114 103 Pulse Ox 97 98 99 Oxygen Delivery Method Room Air Room Air Room Air Positive well nourished and well developed General Appearance ED: well developed HEENT Reports TM's clear and dry mucous membranes normocephalic and atraumatic Tympanic Membrane ED: Yes TM's clear Mouth ED: Yes dry mucous membranes Mouth: dry mucous membranes Eyes PERRL and EOMs intact bilaterally General Eye ED: Negative for pale conjunctiva or scleral icterus Neck no lymphadenopathy, supple and no JVD Resp normal respiratory effort and clear to auscultation bilaterally Cardio regular rate, regular rhythm, S1 normal heart sound, S2 normal heart sound and no murmurs GI non-tender, non-distended and no masses Auscultation: normoactive bowel sounds Palpation: soft Back/Spine no CVA tenderness Extremity full ROM General Extremety ED: Negative for edema or tenderness General Extremity: Negative for edema Neuro CN's II-XII intact bilaterally Sensorium / Orientation: alert, oriented to person, oriented to place and oriented to time Motor Exam: strength 5/5 throughout Psych mental status grossly normal and thought process normal Skin no wounds Lesions: no lesions Rashes: no rashes MDM MDM MDM Narrative Medical decision making narrative: Clinically patient dehydrated. 500 cc of normal saline was ordered since she has history of SIADH. Patient metabolic elam el was obtained to assess potassium because of the diarrhea as well as acid-base status and renal function. CBC to assess white count and H&H. Lab Data Attestation: I reviewed the patient's lab results. Lab results narrative: Sodium is slightly lower than baseline. Renal function is normal. CBC and H&H are normal. Glucose is slightly elevated 144. Labs: Laboratory Results - last 24 hr 05/17/21 05/17/21 21:19 21:19 WBC 5.3 RBC 4.20 Hgb 13.4 Hct 38.0 MCV 90.5 MCH 31.9 MCHC 35.3 RDW Std Deviation 42.5 RDW Coeff of Idania 12.8 Plt Count 275 MPV 9.2 Immature Gran % (Auto) 0.200 Neut % (Auto) 56.2 Lymph % (Auto) 37.9 [place] % (Auto) 5.1 Eos % (Auto) 0.2 Baso % (Auto) 0.4 Absolute Neuts (auto) 3.0 Absolute Lymphs (auto) 2.02 Nucleated RBC % 0 Differential Comment SCANNED Reactive Lymphocytes 1+ Sodium 126 L Potassium 3.4 L Chloride 92 L Carbon Dioxide 25.0 Anion Gap 9 BUN 12 Creatinine 0.66 Estim Creat Clear Calc 38.54 Est GFR (MDRD) Af Amer 112 Est GFR (MDRD) Non-Af 92 BUN/Creatinine Ratio 18.3 Glucose 144 H Calcium 8.3 L Discharge Plan Triage Chief Complaint: Nausea/Vomiting/Diarrhea ED Provider: Tejinder Mora Dx/Rx/DC Orders Clinical Impression: Vomiting alone, Chronic diarrhea, Hyponatremia with decreased serum osmolality Instructions: ED Diarrhea, Unknown Cause, ED Diet for Vomiting or ..., ED Hyponatremia Prescriptions: New ondansetron [ondansetron] 4 MG tablet 4 mg PO Q8H PRN PRN (Reason: Nausea) Qty: 10 RF: 0 No Action Prolia 60 mg/mL syringe 60 mg SC [id number] RF: 0 metoprolol succinate 25 mg tablet extended release 24 hr 25 mg PO QHS Qty: 90 RF: 3 metoprolol succinate 25 mg tablet extended release 24 hr 12.5 mg PO BREAKFAST Qty: 45 RF: 3 apixaban 5 mg tablet 5 mg PO BID RF: 0 sodium chloride 1,000 mg tablet,soluble 1,000 mg PO QD-QID RF: 0 clobetasol 0.05 % cream 1 applic TOPICAL .COMPLEX Qty: 15 RF: 2 fludrocortisone 0.1 mg tablet 0.1 mg PO .M// Qty: 12 RF: 4 calcium carbonate-vitamin D3 1 EACH tablet 1 tablet PO DAILY RF: 0 cholecalciferol (vitamin D3) 400 UNIT capsule 1,000 unit PO DAILY RF: 0 meclizine 12.5 MG tablet 12.5 mg PO TID PRN PRN (Reason: Vertigo) Qty: 20 RF: 0 esomeprazole magnesium 40 mg capsule,delayed release(DR/EC) See Rx Instructions .ROUTE .COMPLEX Qty: 90 RF: 3 dofetilide 250 mcg capsule 250 mcg PO Q12 Qty: 180 RF: 3 anastrozole 1 mg tablet 1 mg PO QHS Qty: 90 RF: 3 magnesium oxide 400 mg (241.3 mg magnesium) tablet 400 mg PO DAILY Qty: 90 RF: 3 Primary Care Provider: Rochelle Brandt Referrals: Rochelle Brandt MD [Primary Care Provider] - 3-5 Days if not improving Carlos Sheth MD [STAFF PHYSICIAN] - 1-2 Weeks (Diarrhea for 2 months) Disposition Disposition: Home, Self Care
[2021-05-17 21:48] LABS: Anion Gap 9 (5-15); BUN 12 mg/dL (7-18); BUN/Creat Ratio 18.3 RATIO (10-20); Calcium,Total 8.3 mg/dL (8.5-10.1); Chloride 92 mmol/L (98-107); Creatinine, Serum 0.66 mg/dL (0.55-1.02); EST Glomerular Filtration Rate 92 mL/min (>60); Est Glom Filt Rate - Afr Amer 112 mL/min (>60); Estimated Creatinine Clearance 38.54 ml/min; Glucose 144 mg/dL (74-106); Potassium 3.4 mmol/L (3.5-5.1); Sodium Level 126 mmol/L (136-145)
[2021-05-17 22:23] VITALS: BP 139/85; PULSE 78; RESP 17; O2SAT 99
[2021-05-17 23:01] VITALS: PULSE 78; RESP 16; O2SAT 98
== END 2021-05-17 23:14 | disposition home or self-care (01) ==
PROVIDERS: Emergency Provider Emergency Medicine; PCP Internal Medicine
DX: K52.9 Noninfective gastroenteritis and colitis, unspecified (principal); E22.2 Syndrome of inappropriate secretion of antidiuretic hormone; R11.10 Vomiting, unspecified; K21.9 Gastro-esophageal reflux disease without esophagitis; I48.0 Paroxysmal atrial fibrillation; Z86.73 Personal history of transient ischemic attack (TIA), and cerebral infarction without residual deficits; Z79.02 Long term (current) use of antithrombotics/antiplatelets; Z79.899 Other long term (current) drug therapy
CPT/HCPCS: 80048; 85025; 93005; 96361; 96374; 99285; J7040; A4216; J2405

== ENCOUNTER → 2021-06-06 08:57 | Outpatient (CLI) | payer MEDICARE, OTHER, SELFPAY ==
[2021-06-06 10:44] LABS: Anion Gap 2 (5-15); BUN 13 mg/dL (7-18); BUN/Creat Ratio 18.8 RATIO (10-20); Calcium,Total 8.5 mg/dL (8.5-10.1); Chloride 103 mmol/L (98-107); Creatinine, Serum 0.69 mg/dL (0.55-1.02); EST Glomerular Filtration Rate 87 mL/min (>60); Est Glom Filt Rate - Afr Amer 105 mL/min (>60); Glucose 73 mg/dL (74-106); Sodium Level 134 mmol/L (136-145)
== END ==
PROVIDERS: PCP Internal Medicine; Referring Provider Nurse Practitioner Family; Visit Provider Nurse Practitioner Family
DX: I10 Essential (primary) hypertension (principal)
CPT/HCPCS: 36415; 80048

== ENCOUNTER → 2021-06-10 08:01 | Outpatient (CLI) | payer MEDICARE, OTHER, SELFPAY ==
[2021-06-10 09:48] LABS: Protein, Urine (Random) 40.7 mg/dL (<11.9); Protein:Creat Ratio 576 mg/g CRE (0-200)
== END ==
PROVIDERS: PCP Internal Medicine; Referring Provider Internal Medicine Nephrology; Visit Provider Internal Medicine Nephrology
DX: E87.1 Hypo-osmolality and hyponatremia (principal)
CPT/HCPCS: 82570; 84156

== ENCOUNTER 2021-06-17 10:00 | Outpatient (RCR) | payer MEDICARE, OTHER, SELFPAY ==
[2021-03-25 12:14] VITALS: BMI 19.1
--- NOTE | 2021-04-05 10:50 | HP.PTEVAL_ITS ---
Patient's Visit Information JULIANNA TUCKER is a 81 year old F referred to Physical Therapy by CM SIDHU with a diagnosis of ACUTE RIGHT KNEE PAIN. Date of Evaluation: 04/05/21 Physical Therapist: Jorge Pedro, PT, Cert MDT, OCS - Visit Plan Frequency: 2x /Week Duration: 4 Weeks Plan: PT INTERVETIONS NUTSEP ,MODALTIES ,GRADED PRE'S QUADS/HAMS/HIP , AND FUNCTIONAL STRENGTHENING - Subjective This 81 y/o female presents to physical therapy with right knee pain . Patient has been in our clinic for balance issues and has had knee pain many years since [address]. Patient [address] bell x-rays showed DJD. Location of pain global knee . Aggravating factors elevation from chair, stairs, kneeling unable to squat. extended walking. Alleviating rest and ice. Denies paresthesia/tingling. Sleeping okay at night. No prior trauma or Rehab. Patient knee pain affects ADL's and housework task . Patient condition affects QOL. SOCIAL: . VOCATION: RETIRED - Pain Left Knee Pain Intensity (Out of 10): 4 Pain Intensity Range: 10 - Objective POSTURE: WFL. NEURO: intact. EDEMA: mild effusion. GAIT: normal elena. STAIRS: one steps at time. AROM: R 0-135 degrees, L 0-145 degrees. MMT: quads/hams 4/5 ,hip flexion 4-/5,hip abduction 4-/5 ,ankle 5/5. FLEXABLITY: hams min tight - Special Tests R Knee Scottie - Meniscus: Negative R Knee Anabelle - ACL: Negative R Knee Anterior Drawer - ACL: Negative R Knee Pivot Shift - ACL, Ant. Rotator Instability: Negative R Knee Valgus - MCL: Negative R Knee Varus - LCL: Negative R Knee Patellar Apprehension - PFS: Negative R Knee Patellar Grind - PFS: Negative - Goals Goal 1:: Patient to be I with HEP Goal Time Frame: 4-6 Weeks Goal 2:: Patient to increase strength quads/hams 5/5,hip 4/5 to improve function Goal Time Frame: 4-6 Weeks Goal 3:: Patient to decrease knee pain by 50% or > to improve function and GAIT Goal Time Frame: 4-6 Weeks Goal 4:: Patient to improve LFES score by 5 -10 points or > to improve function Goal Time Frame: 4-6 Weeks Goal 5:: Patient be able to perform ADLS' with min limiations Goal Time Frame: 4-6 Weeks - Rehabilitation Potential Physical Therapy Diagnosis: This patient has right knee pain with apparent DJD with pain ,effusion ,weakness impairs functional activities with walking and ADLS' thus benefit from skilled PT Rehabilitation Potential: Good - Anticipated Interventions Patient/Client Instruction: Educate patient on: Condition, Plan of Care For the Purpose of:: To decrease pain, To increase ROM, To improve muscle performance and motor function, To improve ability to perform ADL's, To increase tolerance to activity/condition/position, To improve performance and independence with ADL's, To improve ability of physical actions for home /community/work/leisure, To improve gait and locomotor functions, To improve health of tissue, To decrease soft tissue restriction, To increase flexibility/ROM, To improve balance, To reduce risk of recurrence, To improve ability to perform tasks related to life management Therapeutic Exercise to Include: Strength training, Endurance training, Balance training, Flexibilty training, Passive ROM Comment: STRENGTHENING HIP/KNEE For the Purpose of:: To decrease pain, To increase ROM, To improve muscle performance and motor function, To improve ability to perform ADL's, To increase tolerance to activity/condition/position, To improve performance and independence with ADL's, To improve ability of physical actions for home /community/work/leisure, To improve endurance, To reduce risk of recurrence, To improve ability to perform tasks related to life management TENS: Yes IF ES: Yes Thermo therapy (hot pack): Yes Ultrasound (thermal/non thermal): Yes For the Purpose of:: To improve nutrient delivery to tissue, To increase oxygenation perfusion, To improve health of tissue, To decrease soft tissue restriction Thank you for the opportunity to evaluate your patient. For Medicare and Medicare HMO plans, please review the plan of care and approve it. It will need to be FAXED BACK to us at [phone] for Medicare purposes. For Medicare only, by signing this I certify the plan of care. Please let me know if there are questions or concerns regarding this plan of care. Physician Signature: Date:
--- NOTE | 2021-05-03 10:11 | HP.PTREVAL_ITS ---
CM SIDHU, It has been my pleasure to treat JULIANNA TUCKER over the last 9 visits for ACUTE RIGHT KNEE PAIN. Please see the progress note below for an update on the physical therapy plan of care! Subjective: Doing better overall.. Objective/Function: POSTURE:WFL. GAT : RECIPROCAL PATTERN. STAIRS: ALTERNATING WITH RAILS. MMT: QUADS/HAMS HIP 4/5. AROM: 0-140 DEGREES Plan Plan: CONT WITH POC 2XWEEK FOR 4 WEEKS. PT INTERVETIONS NUTSEP ,MODALTIES ,GRADED PRE'S QUADS/HAMS/HIP , AND FUNCTIONAL STRENGTHENING Balance/Gait/Functional tests - Balance/Special Test Scores Lower Extremity Functional Score: 41 Goals Goal 1:: Patient to be I with HEP Goal Time Frame: 4-6 Weeks Goal Progress: Progressing Goal 2:: Patient to increase strength quads/hams 5/5,hip 4/5 to improve function Goal Time Frame: 4-6 Weeks Goal Progress: Progressing Goal 3:: Patient to decrease knee pain by 50% or > to improve function and GAIT Goal Time Frame: 4-6 Weeks Goal Progress: Progressing Goal 4:: Patient to improve LFES score by 5 -10 points or > to improve function Goal Time Frame: 4-6 Weeks Goal Progress: Progressing Goal 5:: Patient be able to perform ADLS' with min limiations Goal Time Frame: 4-6 Weeks Goal Progress: Progressing Anticipated Interventions Patient/Client Instruction: Educate patient on: Condition, Plan of Care For the Purpose of:: To decrease pain, To increase ROM, To improve muscle performance and motor function, To improve ability to perform ADL's, To increase tolerance to activity/condition/position, To improve performance and independence with ADL's, To improve ability of physical actions for home/community/work/leisure, To improve gait and locomotor functions, To improve health of tissue, To decrease soft tissue restriction, To increase flexibility/R OM, To improve balance, To reduce risk of recurrence, To improve ability to perform tasks related to life management Therapeutic Exercise to Include: Strength training, Endurance training, Balance training, Flexibilty training, Passive ROM Comment: STRENGTHENING HIP/KNEE For the Purpose of:: To decrease pain, To increase ROM, To improve muscle performance and motor function, To improve ability to perform ADL's, To increase tolerance to activity/condition/position, To improve performance and independence with ADL's, To improve ability of physical actions for home/community/work/leisure, To improve endurance, To reduce risk of recurrence, To improve ability to perform tasks related to life management TENS: Yes IF ES: Yes Thermo therapy (hot pack): Yes Ultrasound (thermal/non thermal): Yes For the Purpose of:: To improve nutrient delivery to tissue, To increase oxygenation perfusion, To improve health of tissue, To decrease soft tissue restriction Please do not hesitate to contact me at [phone] by phone or if you have questions or concerns regarding this new plan of care! Sincerely, Jorge Pedro, PT, Cert MDT, OCS
--- NOTE | 2021-06-17 10:20 | HP.PTDCSUM ---
It has been my pleasure to treat JULIANNA TUCKER referred by CM SIDHU, with the diagnosis of ACUTE RIGHT KNEE PAIN for a total of 18 visit(s). Discharge Date: 06/17/21 Please see the following information for a summary of their discharge status. Subjective: I believe , I have good set of ex's at home. Plan to get cortizone injection today Left Knee Pain Intensity (Out of 10): 1 R knee Pain Intensity (Out of 10): 1 % Improvement: 60 Objective/Function: GAIT: reciprocal pattern. PALAPTION: unremarkable. MMT: QUADS/HAMS 4/5,HIP FLEXION /ABD 4-/5. AROM: 0-135 degrees Goal 1:: Patient to be I with HEP Goal Progress: Goal Met Goal 2:: Patient to increase strength quads/hams 5/5,hip 4/5 to improve function Goal Progress: Goal Met Goal 3:: Patient to decrease knee pain by 50% or > to improve function and GAIT Goal Progress: Goal Met Goal 4:: Patient to improve LFES score by 5 -10 points or > to improve function Goal Progress: Goal Met Goal 5:: Patient be able to perform ADLS' with min limiations Goal Progress: Goal Met Plan: D/C TO [facility] Discharge Comments: [facility] If there are questions or concerns regarding this patient's physical therapy, please feel free to call me at [phone]. Thank you for the referral of this patient. Sincerely, Jorge Pedro, PT, Cert MDT, OCS Balance/Gait/Functional tests - Balance/Special Test Scores Lower Extremity Functional Score: 52
== END 2021-06-17 19:00 | disposition home or self-care (01) ==
LOC: PT 10:00
PROVIDERS: PCP Internal Medicine; Referring Provider Nurse Practitioner Family; Visit Provider Nurse Practitioner Family
DX: M25.561 Pain in right knee (principal)
CPT/HCPCS: 97110; 97162; 97530

== ENCOUNTER 2021-10-03 08:57 | Outpatient (CLI) | payer MEDICARE, OTHER, SELFPAY ==
--- NOTE | 2021-10-03 08:59 | BI_ITS ---
MAMMOGRAPHY - UNILATERAL DIAGNOSTIC: RIGHT BREAST REASON FOR EXAM: Female, 81 years old. Breast tenderness with palpable lump at the 3 o''clock position of the right breast. PERTINENT HISTORY: Personal history of breast cancer. Prior left mastectomy. History of sister with breast cancer. TECHNIQUE: Digital unilateral breast sunni (3D mammographic acquisition) in the CC and MLO projections. 2-D mediolateral oblique (MLO) and craniocaudad (CC) views of both breasts were obtained. CAD: Full Field Digital Mammography with Computer Added Detection was performed. COMPARISON: Comparison is made with prior examination dated 05/08/2021 and 05/01/2020. FINDINGS: Breast Composition: There are scattered areas of fibroglandular density. There are no dominant masses or suspicious calcifications. No other significant abnormalities are identified. There has been no significant change since the prior study. BI/DIAG MAMM W/CAD, UNILAT IMPRESSION: Stable unilateral diagnostic mammogram. With the patient''s history of a palpable lump and tenderness at the 3 o''clock position of the right breast, correlation with ultrasound is recommended. ASSESSMENT CATEGORY: BIRADS Category 0: Incomplete. Need additional imaging evaluation. A letter regarding these results will be sent to the patient by the facility within 30 days. Approximately 10% of breast cancers are not detected by mammography. A normal mammogram should not delay biopsy of a clinically suspicious abnormality. Electronically Signed: Edenilson Crisostomo MD at 10:03 EST , Service support ,
--- NOTE | 2021-10-03 09:48 | US_ITS ---
STUDY: ULTRASOUND BREAST - RIGHT REASON FOR EXAM: Female, 81 years old. Palpable lump in the right breast. TECHNIQUE: Axial and longitudinal images of the RIGHT breast were performed with a high resolution ultrasound transducer. # OF IMAGES: 18 COMPARISON: Comparison is made with prior mammogram done earlier today. FINDINGS: RIGHT Breast: The medial half of the right breast was examined by ultrasound. There is evidence of fibroglandular tissue. No sonographic abnormality is seen. US/Breast Limited Unilateral IMPRESSION: No sonographic abnormality is seen. ASSESSMENT CATEGORY: BIRADS Category 1: Negative. A letter regarding these results will be sent to the patient by the facility within 30 days. Electronically Signed: Edenilson Crisostomo MD at 10:29 EST , Service support ,
== END 2021-10-03 23:59 | disposition short-term general hospital (02) ==
LOC: OPBI 08:58
PROVIDERS: PCP Internal Medicine; Referring Provider Internal Medicine Hematology & Oncology; Visit Provider Internal Medicine Hematology & Oncology
DX: N63.11 Unspecified lump in the right breast, upper outer quadrant (principal); R92.2 Inconclusive mammogram; Z90.12 Acquired absence of left breast and nipple; Z85.3 Personal history of malignant neoplasm of breast; Z80.3 Family history of malignant neoplasm of breast
CPT/HCPCS: 76642; 77061; 77065; G0279

== ENCOUNTER 2021-10-24 21:49 | Emergency (ER) | payer MEDICARE, OTHER, SELFPAY ==
[2021-10-24 21:50] VITALS: PULSE 89; RESP 18; TEMP 35.9; O2SAT 98; BMI 19.5
[2021-10-24 21:57] VITALS: BP 174/88; PULSE 84; RESP 11; O2SAT 100
--- NOTE | 2021-10-24 22:08 | EKG12_ITS ---
Test Reason : CP Blood Pressure : / mmHG Vent. Rate : 085 BPM Atrial Rate : 085 BPM P-R Int : 230 ms QRS Dur : 108 ms QT Int : 370 ms P-R-T Axes : 083 046 080 degrees QTc Int : 440 ms Sinus rhythm with 1st degree A-V block Prominent peaked T-waves; Consider metabolic effect/hyperkalemia Confirmed by STEFANIE THAO, BETSY ([id number]), editorial manager AMAYA COVARRUBIAS ([id number]) on 10/25/2021 11:11:49 AM Referred By: BLADE Confirmed By:BETSY WATTS MD
[2021-10-24 22:16] LABS: Absolute Lymphocyte Count 3.19 X10^3/uL (0.83-4.51); Absolute Neutrophil Count 2.7 X10^3/uL (2.0-7.7); Basophil# 0.04 X10^3/uL; Basophil% 0.6 % (0-1); Eosinophil# 0.16 X10^3/uL; Eosinophils% 2.3 % (0-5); Hematocrit 37.6 % (37-47); Lymphocyte # 3.19 X10^3/ul (0.83-4.51); Lymphocyte % 46.4 % (19-41); Mean Corp Hgb Conc 34.6 g/dL (32-36); Mean Corpuscular Hgb 32.6 pg (27.0-32.0); Mean Corpuscular Volume 94.2 fL (81-99); Mean Platelet Vol. 9.8 fl (6.2-12.0); Monocyte# 0.74 X10^3/uL; Monocyte% 10.8 % (0-10); NRBC Flagged by Analyzer 0 % (0-5); Neutrophil # 2.74 X10^3/uL (2.7-7.7); Neutrophil % 39.8 % (47-70); Platelet Count 240 K/mm3 (150-450); RBC Distribution Width CV 13.2 % (11.6-14.6); RBC Distribution Width SD 45.5 fl (35.1-43.9); Red Blood Count 3.99 M/mm3 (4.2-5.4); White Blood Count 6.9 K/mm3 (4.4-11.0)
--- NOTE | 2021-10-24 22:16 | EDS_ITS ---
HPI History of Present Illness Chief Complaint: Chest Pain Narrative Narrative: Patient is a 81-year-old female presents the ER with multiple complaints. She states that over the past 1 to 2 weeks she is been nauseated and felt like she is becoming dehydrated. She states that she has noticed she is also becoming very fatigued. She reports that over the past 5 nights she is noticed when she tries to lay down to sleep she has pain in her upper abdomen which can radiate midsternally into her chest. She denies any vomiting shortness of breath or diaphoresis associated with this but does report persistent nausea. She states she has been able to fall asleep and that she does not seem to notice the same pain or sensation when she is awake throughout the day. She also states that now she is noticing some mid upper back pain but states it does not feel like it radiates from her abdomen. She states that based on the prolonged nature of her symptoms and the fact or not improving with time and her normal medication she presents for evaluation. 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) Chronic diarrhea Chronic hyponatremia Compression fracture of L1 lumbar vertebra Dehydration Diverticulitis Dysequilibrium GERD (gastroesophageal reflux disease) history of blood transfusion IBS (irritable bowel syndrome) Intestinal disease, parasitic Lichen sclerosus Migraine Nonrheumatic mitral (valve) prolapse Osteopenia Osteopenia Osteopenia 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 Ovarian cyst Paroxysmal atrial fibrillation Paroxysmal atrial flutter SIADH (syndrome of inappropriate ADH production) Syncope (07/13/19) Tachycardia Tendinitis of right shoulder TIA (transient ischemic attack) Vaginal dryness Weakness Home Medications calcium carbonate-vitamin D3 1 tablet PO DAILY 07/13/19 [History Last Taken 11/11/19] cholecalciferol (vitamin D3) 1,000 unit PO DAILY 07/13/19 [History Last Taken 11/11/19] denosumab 60 mg/mL subcutaneous syringe 60 mg SC [id number] 08/16/19 [History Last Taken Unknown] meclizine 12.5 mg PO TID PRN PRN #20 tablet 11/14/19 [Rx Last Taken Unknown] metoprolol succinate 25 mg tablet,extended release 24 hr 12.5 mg PO BREAKFAST #45 tablet 09/20/20 [Rx Last Taken Unknown] metoprolol succinate 25 mg tablet,extended release 24 hr 25 mg PO QHS #90 tablet 09/20/20 [Rx Last Taken Unknown] anastrozole 1 mg tablet 1 mg PO QHS #90 tab 03/04/21 [Rx Last Taken Unknown] apixaban 5 mg tablet 5 mg PO BID tablet 05/08/21 [History Last Taken Unknown] sodium chloride 1,000 mg soluble tablet 1,000 mg PO QD-QID 05/08/21 [History Last Taken Unknown] magnesium oxide 400 mg (241.3 mg magnesium) tablet 400 mg PO DAILY #90 tablet 05/13/21 [Rx Last Taken Unknown] esomeprazole magnesium 40 mg capsule,delayed release 40 mg PO DAILY cap 06/26/21 [History Last Taken Unknown] fludrocortisone 0.1 mg tablet 0.1 mg PO .M// #12 tablet 07/15/21 [Rx Last Taken Unknown] dofetilide 250 mcg capsule 250 mcg PO Q12 #180 cap 10/22/21 [Rx Last Taken Unknown] Allergy/AdvReac Type Severity Reaction Status Date / Time cantaloupe Allergy Severe Anaphylaxis Verified 10/24/21 21:52 grass pollen Allergy Severe Unknown Verified 10/24/21 21:52 Penicillins Allergy Severe Anaphylaxis Verified 10/24/21 21:52 mold Allergy Unknown Verified 10/24/21 21:52 pollen extracts Allergy Unknown Verified 10/24/21 21:52 erythromycin base AdvReac Severe Unknown Verified 10/24/21 21:52 lansoprazole [From Prevacid] AdvReac Severe Nausea/Vom/ Verified 10/24/21 21:52 Diarrhea adhesive tape AdvReac Intermediate Rash Verified 10/24/21 21:52 Family History Father Unknown family medical history Mother Uterine cancer Thyroid disorder Kidney disease Hypertension CHF (congestive heart failure) Arthritis Surgical History H/O breast biopsy H/O left mastectomy H/O lymph node biopsy History of cataract surgery History of colonoscopy (05/2019) History of dilation and curettage History of esophagogastroduodenoscopy (EGD) (05/2019) History of left heart catheterization (09/2012) History of radiofrequency ablation (RFA) procedure for cardiac arrhythmia (08/2013) History of removal of ovarian cyst Social History Smoking Status: Never smoker alcohol intake: current alcohol intake frequency: holidays/special occasions only substance use type: does not use caffeine: Yes what type of physical activity do you participate in: walking and yoga frequency: 3-4 times per week seatbelt use: always do you feel safe at home: Yes additional social history: -Tony Patient and are both retired ROS ROS ED Constitutional Constitutional ED: Denies chills or fever(s) Eyes Eyes: Denies change in vision ENT ENT ED: Denies sore throat Cardiovascular Cardiovascular: Reports chest pain; Denies palpitations or racing heartbeat Respiratory/Chest Respiratory/Chest: Denies cough or dyspnea Gastrointestinal Gastrointestinal: Reports abdominal pain and nausea; Denies diarrhea or vomiting Genitourinary Genitourinary ED: Denies dysuria Musculoskeletal Musculoskeletal: Reports back pain; Denies myalgias Integumentary Denies rash Neurologic Neurologic: Reports weakness; Denies headache(s) Hematologic/Lymphatic Hematologic/Lymphatic: Reports easy bleeding and easy bruising EXAM Physical Exam Const Vital Signs: 10/24/21 21:50 10/24/21 21:54 10/24/21 21:57 Temperature 96.6 F L Temperature Source Temporal Pulse Rate 89 84 Respiratory Rate 18 11 L Respiratory Effort Normal Non-Labored Respiratory Pattern Normal Blood Pressure 174/88 H Blood Pressure Mean 116 Pulse Ox 98 100 Oxygen Delivery Method Room Air 10/25/21 00:09 10/25/21 01:00 Temperature 98 F Temperature Source Temporal Pulse Rate 95 68 Respiratory Rate 16 12 Respiratory Effort Respiratory Pattern Blood Pressure 145/85 H 146/75 H Blood Pressure Mean 105 98 Pulse Ox 95 97 Oxygen Delivery Method Room Air Room Air Positive well nourished and well developed General Appearance ED: well developed HEENT Reports dry mucous membranes Mouth ED: Yes dry mucous membranes Mouth: dry mucous membranes Eyes PERRL and EOMs intact bilaterally Neck supple Chest Wall palpation of chest normal Resp normal respiratory effort and clear to auscultation bilaterally Cardio regular rate and regular rhythm Rate: other Other Details: Radial pulses are +2-4 bilaterally are equal and symmetric GI non-distended GI Narrative: No voluntary guarding or rigidity. But there is pain with palpation in the midepigastric region. No pulsatile mass noted Auscultation: normoactive bowel sounds Palpation: soft Back/Spine no CVA tenderness Extremity normal to inspection Extremity Narrative: No asymmetric edema no pitting edema negative Homans' sign bilaterally Neuro oriented x3 and CN's II-XII intact bilaterally Sensorium / Orientation: alert Motor Exam: strength 5/5 throughout Psych Psych Narrative: Patient has a depressed/flat affect Mood & Affect: depressed Skin no rashes or lesions noted Skin Narrative: Skin turgor is increased MDM MDM MDM Narrative Medical decision making narrative: Patient presented to the ER hypertensive but otherwise with stable vitals and in no acute distress. She had multiple symptoms and reported more of an upper abdominal pain that radiated into the chest as well as some back pain. With her history of SIADH and concern for dehydration did elect to perform basic laboratory studies. The patient's sodium is down at 129 but her baseline is approximately 130. Otherwise there is no clinically significant electrolyte abnormality. The patient's initial troponin was 5 delta which was approximately 3 hours had changed by 7 which is not clinically significant. I did elect to perform a CTA as she reported increased hypertension and as well as abdominal/back pain which was negative. On reevaluation the patient is resting comfortably and does report improvement of symptoms. Therefore at this time as the sodium has been replaced with IV hydration she is not in acute kidney injury she has no true electrolyte disturbance or signs of cardiac damage or vascular injury she can be discharged and follow-up on an outpatient basis. Lab Data Attestation: I reviewed the patient's lab results. Labs: Laboratory Results - last 24 hr 10/24/21 10/24/21 10/25/21 21:56 21:56 00:51 WBC 6.9 RBC 3.99 L Hgb 13.0 Hct 37.6 MCV 94.2 MCH 32.6 H MCHC 34.6 RDW Std Deviation 45.5 H RDW Coeff of Idania 13.2 Plt Count 240 MPV 9.8 Immature Gran % (Auto) 0.100 Neut % (Auto) 39.8 L Lymph % (Auto) 46.[address] [place] % (Auto) 10.8 H Eos % (Auto) 2.3 Baso % (Auto) 0.6 Absolute Neuts (auto) 2.7 Absolute Lymphs (auto) 3.19 Nucleated RBC % 0 Sodium 129 L Potassium 3.5 Chloride 94 L Carbon Dioxide 27.0 Anion Gap 8 BUN 21 H Creatinine 1.00 Estim Creat Clear Calc 40.90 Est GFR (MDRD) Af Amer 69 Est GFR (MDRD) Non-Af 57 L BUN/Creatinine Ratio 21.0 H Glucose 114 H Calcium 8.9 Magnesium Cancelled Total Bilirubin 0.80 Direct Bilirubin 0.21 AST 21 ALT 30 Alkaline Phosphatase 61 Troponin I High Sens 5 12 Total Protein 7.5 Albumin 3.6 Globulin 3.9 Lipase 156 Radiography Diagnostic Testing: Clinical Impression(s) from Imaging Studies Chest X-Ray 10/24/21 22:30 IMPRESSION: Hyperinflation suggesting emphysema. Electronically Signed: Handy Holcomb MD at 22:51 EST , Chest/Abdomen/Pelvis CTA 10/24/21 23:21 IMPRESSION: No aortic dissection or other acute disease. Electronically Signed: Minesh Nino MD at 0:48 EST , Discharge Plan Triage Chief Complaint: Chest Pain ED Provider: Minesh Briones Dx/Rx/DC Orders Clinical Impression: Mild dehydration, Chronic hyponatremia, Nonspecific chest pain, Nausea Instructions: Dehydration, Hyponatremia Dc Prescriptions: No Action Prolia 60 mg/mL syringe 60 mg SC [id number] RF: 0 metoprolol succinate 25 mg tablet extended release 24 hr 25 mg PO QHS Qty: 90 RF: 3 metoprolol succinate 25 mg tablet extended release 24 hr 12.5 mg PO BREAKFAST Qty: 45 RF: 3 apixaban 5 mg tablet 5 mg PO BID RF: 0 sodium chloride 1,000 mg tablet,soluble 1,000 mg PO QD-QID RF: 0 esomeprazole magnesium 40 mg capsule,delayed release(DR/EC) 40 mg PO DAILY RF: 0 fludrocortisone 0.1 mg tablet 0.1 mg PO .// Qty: 12 RF: 4 calcium carbonate-vitamin D3 1 EACH tablet 1 tablet PO DAILY RF: 0 cholecalciferol (vitamin D3) 400 UNIT capsule 1,000 unit PO DAILY RF: 0 meclizine 12.5 MG tablet 12.5 mg PO TID PRN PRN (Reason: Vertigo) Qty: 20 RF: 0 anastrozole 1 mg tablet 1 mg PO QHS Qty: 90 RF: 3 magnesium oxide 400 mg (241.3 mg magnesium) tablet 400 mg PO DAILY Qty: 90 RF: 3 dofetilide 250 mcg capsule 250 mcg PO Q12 Qty: 180 RF: 3 Primary Care Provider: Rochelle Brandt Referrals: Rochelle Brandt MD [Primary Care Provider] - Disposition Disposition: Home, Self Care
[2021-10-24] MEDS: Ondansetron 4 MG/2 ML Vial IV ×2 (22:21→23:58)
[2021-10-24] MEDS: Morphine 2 MG/ML Syringe IV (22:21)
--- NOTE | 2021-10-24 22:30 | RAD_ITS ---
EXAM: XR Chest, 1 View CLINICAL INDICATION: 81 years old, Female; chest pain TECHNIQUE: Frontal view of the chest. This report was created using Box[employer] report generation technology. COMPARISON: None. FINDINGS: Lungs and pleural spaces: Hyperinflation suggesting emphysema. Scarring in the lung apices. No pneumothorax. No effusion. Heart: Unremarkable. Cardiac silhouette not enlarged. Mediastinum: Central airways and mediastinal contour are unremarkable. Bones/joints: Unremarkable. Soft tissues: Left mastectomy. Prominent nipple shadow on the right. Vasculature: Tortuous thoracic aorta. RAD/Chest 1 View (Portable) IMPRESSION: Hyperinflation suggesting emphysema. Electronically Signed: Handy Holcomb MD at 22:51 EST ,
[2021-10-24 22:36] LABS: AST(SGOT) 21 U/L (15-37); Alanine Aminotransfer ALT/SGPT 30 U/L (13-56); Albumin, Serum 3.6 g/dL (3.2-5.0); Alkaline Phosphatase 61 U/L (45-117); Anion Gap 8 (5-15); BUN 21 mg/dL (7-18); Bilirubin, Direct 0.21 mg/dL (0.00-0.30); Calcium,Total 8.9 mg/dL (8.5-10.1); Chloride 94 mmol/L (98-107); EST Glomerular Filtration Rate 57 mL/min (>60); Est Glom Filt Rate - Afr Amer 69 mL/min (>60); Globulin 3.9 g/dL (2.2-4.2); Glucose 114 mg/dL (74-106); Lipase 156 U/L (73-393); Potassium 3.5 mmol/L (3.5-5.1); Protein, Total 7.5 g/dL (6.4-8.2); Sodium Level 129 mmol/L (136-145); Troponin-I HS 5 pg/mL (3.0-54.0)
--- NOTE | 2021-10-24 23:21 | CT_ITS ---
EXAM: CT ANGIOGRAPHY CHEST, ABDOMEN AND PELVIS WITH INTRAVENOUS CONTRAST CLINICAL INDICATION: pain / ? dissection TECHNIQUE: Helically acquired angiography images were obtained of the chest, abdomen and pelvis with intravenous contrast. CTDIvol = ( 5.59 ) mGy, DLP = ( 379.15 ) mGycm This CT exam was performed using one or more of the following dose reduction techniques: automated exposure control, adjustment of the mA and/or kV according to patient size, and/or use of iterative reconstruction technique. This report was created using Yumm[employer] report generation technology. MIP reconstructed images were created and reviewed. CONTRAST: IV 100mL [id number]-370 COMPARISON: 07/13/[address] FINDINGS: VASCULATURE: AORTA: No acute findings. Normal in caliber. No dissection. PULMONARY ARTERIES: No PE. No aortic aneurysm or dissection. No obvious central pulmonary embolism although this study was not performed with the pulmonary embolism protocol. GREAT VESSELS OF AORTIC ARCH: Unremarkable. Normal in caliber. No dissection. CELIAC TRUNK AND MESENTERIC ARTERIES: No acute findings. No occlusion or significant stenosis. No dissection. RENAL ARTERIES: No acute findings. No occlusion or significant stenosis. No dissection. ILIAC ARTERIES: No acute findings. No occlusion or significant stenosis. No dissection. CHEST: LUNGS AND PLEURAL SPACES: Mild subsegmental atelectasis involving the posterior lower lobes bilaterally. No consolidation. No pleural effusion or pneumothorax. Biapical fibrosis. No mass. HEART: Unremarkable. Heart size is normal. No pericardial effusion. MEDIASTINUM: Unremarkable. No mediastinal or hilar adenopathy. Esophagus is unremarkable. No hiatal hernia. THYROID: Unremarkable. No thyroid lesions. ABDOMEN: LIVER: Unremarkable. Homogeneous. No focal mass. GALLBLADDER AND BILE DUCTS: Unremarkable. No calcified gallstones. No gallbladder distention or wall edema. No intra- or extrahepatic biliary ductal dilation. PANCREAS: Unremarkable. No focal cystic or solid mass. SPLEEN: Unremarkable. Normal size without focal cystic or solid mass. ADRENALS: Unremarkable. No nodules. KIDNEYS AND URETERS: Unremarkable. Normal renal size and position. No hydronephrosis. STOMACH AND BOWEL: Unremarkable. No stomach or bowel distention. No focal inflammatory change. PELVIS: APPENDIX: No evidence of acute appendicitis. BLADDER: Unremarkable. REPRODUCTIVE: Unremarkable as visualized. No mass. CHEST, ABDOMEN and PELVIS: INTRAPERITONEAL SPACE: Unremarkable. No ascites or other fluid collection. No free air. BONES/JOINTS: Unremarkable. No suspicious lytic or blastic abnormality. SOFT TISSUES: Unremarkable. No discrete abdominal or pelvic wall hernia. LYMPH NODES: Unremarkable. No enlarged lymph nodes. CT/CTA Chst, Abd, Pel W and/or WO IMPRESSION: No aortic dissection or other acute disease. Electronically Signed: Minesh Nino MD at 0:48 EST ,
[2021-10-25 00:09] VITALS: BP 145/85; PULSE 95; RESP 16; TEMP 36.6; O2SAT 95
[2021-10-25 01:00] VITALS: BP 146/75; PULSE 68; RESP 12; O2SAT 97
[2021-10-25 01:22] LABS: Troponin-I HS 12 pg/mL (3.0-54.0)
[2021-10-25] MEDS: Haloperidol Lactate 5 MG/ML Vial 2 MG IV (01:31)
[2021-10-25 01:53] VITALS: BP 142/74; PULSE 62; RESP 16; TEMP 36.6; O2SAT 98
[2021-10-26 09:50] LABS: MG Sendout 2.2 mg/dL (1.6-2.3)
== END 2021-10-25 01:54 | disposition home or self-care (01) ==
PROVIDERS: Emergency Provider Emergency Medicine; PCP Internal Medicine; Visit Provider Emergency Medicine
DX: E86.0 Dehydration (principal); I48.0 Paroxysmal atrial fibrillation; E22.2 Syndrome of inappropriate secretion of antidiuretic hormone; R07.9 Chest pain, unspecified; Z85.3 Personal history of malignant neoplasm of breast; Z87.19 Personal history of other diseases of the digestive system; K21.9 Gastro-esophageal reflux disease without esophagitis; K58.9 Irritable bowel syndrome, unspecified; I34.1 Nonrheumatic mitral (valve) prolapse; M85.80 Other specified disorders of bone density and structure, unspecified site; Z86.73 Personal history of transient ischemic attack (TIA), and cerebral infarction without residual deficits; Z79.899 Other long term (current) drug therapy; Z79.01 Long term (current) use of anticoagulants
CPT/HCPCS: 71045; 71275; 74174; 80048; 80076; 83690; 83735; 84484; 85025; 93005; 96361; 96374; 96375; 96376; 99283; J7040; Q9967; A4216; J2405

== ENCOUNTER → 2021-11-14 07:29 | Outpatient (CLI) | payer MEDICARE, OTHER, SELFPAY ==
[2021-11-14 09:30] LABS: Absolute Lymphocyte Count 1.64 X10^3/uL (0.83-4.51); Absolute Neutrophil Count 1.1 X10^3/uL (2.0-7.7); Basophil# 0.04 X10^3/uL; Basophil% 1.1 % (0-1); Eosinophil# 0.24 X10^3/uL; Eosinophils% 6.7 % (0-5); Hematocrit 35.5 % (37-47); Hemoglobin 12.3 g/dL (12.0-15.0); Lymphocyte # 1.64 X10^3/ul (0.83-4.51); Lymphocyte % 45.8 % (19-41); Mean Corp Hgb Conc 34.6 g/dL (32-36); Mean Corpuscular Hgb 32.1 pg (27.0-32.0); Mean Corpuscular Volume 92.7 fL (81-99); Mean Platelet Vol. 10.3 fl (6.2-12.0); Monocyte# 0.52 X10^3/uL; Monocyte% 14.5 % (0-10); NRBC Flagged by Analyzer 0 % (0-5); Neutrophil # 1.12 X10^3/uL (2.7-7.7); Neutrophil % 31.3 % (47-70); Platelet Count 244 K/mm3 (150-450); RBC Distribution Width CV 13.5 % (11.6-14.6); RBC Distribution Width SD 45.9 fl (35.1-43.9); Red Blood Count 3.83 M/mm3 (4.2-5.4); White Blood Count 3.6 K/mm3 (4.4-11.0)
[2021-11-14 09:53] LABS: ALB/GLOB Ratio 0.8 RATIO (0.9-2.4); AST(SGOT) 26 U/L (15-37); Alanine Aminotransfer ALT/SGPT 32 U/L (13-56); Alkaline Phosphatase 72 U/L (45-117); Anion Gap 3 (5-15); BUN 16 mg/dL (7-18); BUN/Creat Ratio 21.9 RATIO (10-20); Calcium,Total 8.3 mg/dL (8.5-10.1); Chloride 99 mmol/L (98-107); Cholesterol 181 mg/dL (200); Creatinine, Serum 0.73 mg/dL (0.55-1.02); EST Glomerular Filtration Rate 81 mL/min (>60); Est Glom Filt Rate - Afr Amer 98 mL/min (>60); Globulin 3.6 g/dL (2.2-4.2); Glucose 87 mg/dL (74-106); High Density Lipoprotein 85 mg/dL; Potassium 4.1 mmol/L (3.5-5.1); Protein, Total 6.6 g/dL (6.4-8.2); Sodium Level 133 mmol/L (136-145); Triglycerides 62 mg/dL; Very Low Density Lipoprotein 12 mg/dL (5-40)
== END ==
PROVIDERS: PCP Internal Medicine
DX: Z00.00 Encounter for general adult medical examination without abnormal findings (principal); Z13.220 Encounter for screening for lipoid disorders
CPT/HCPCS: 36415; 80053; 80061; 85025

== ENCOUNTER 2021-11-16 09:02 | Outpatient (CLI) | payer MEDICARE, OTHER, SELFPAY ==
[2021-11-16 09:54] LABS: Anion Gap 5 (5-15); BUN 19 mg/dL (7-18); BUN/Creat Ratio 20.9 RATIO (10-20); Calcium,Total 8.5 mg/dL (8.5-10.1); Chloride 97 mmol/L (98-107); Creatinine, Serum 0.91 mg/dL (0.55-1.02); EST Glomerular Filtration Rate 63 mL/min (>60); Est Glom Filt Rate - Afr Amer 77 mL/min (>60); Glucose 108 mg/dL (74-106); Potassium 4.3 mmol/L (3.5-5.1); Sodium Level 130 mmol/L (136-145)
== END 2021-11-16 23:59 | disposition home or self-care (01) ==
LOC: LAB 09:04
PROVIDERS: PCP Internal Medicine; Referring Provider Internal Medicine Nephrology; Visit Provider Internal Medicine Nephrology
DX: E22.2 Syndrome of inappropriate secretion of antidiuretic hormone (principal)
CPT/HCPCS: 36415; 80048; 82533

== ENCOUNTER 2021-12-04 14:01 | Outpatient (CLI) | payer MEDICARE, OTHER, SELFPAY ==
[2021-12-04 15:19] LABS: Sodium Level 129 mmol/L (136-145)
== END 2021-12-04 23:59 | disposition home or self-care (01) ==
LOC: LAB 14:02
PROVIDERS: PCP Internal Medicine; Referring Provider Psychiatry & Neurology Neurology; Visit Provider Psychiatry & Neurology Neurology
DX: E87.1 Hypo-osmolality and hyponatremia (principal)
CPT/HCPCS: 36415; 84295

== ENCOUNTER → 2022-03-18 | Outpatient (CLI) | payer MEDICARE, OTHER, SELFPAY ==
[2022-03-18 16:12] LABS: Absolute Lymphocyte Count 1.99 X10^3/uL (0.83-4.51); Absolute Neutrophil Count 1.7 X10^3/uL (2.0-7.7); Basophil# 0.03 X10^3/uL; Basophil% 0.7 % (0-1); Eosinophil# 0.09 X10^3/uL; Eosinophils% 2.1 % (0-5); Hematocrit 34.9 % (37-47); Hemoglobin 11.8 g/dL (12.0-15.0); Lymphocyte # 1.99 X10^3/ul (0.83-4.51); Lymphocyte % 46.8 % (19-41); Mean Corp Hgb Conc 33.8 g/dL (32-36); Mean Corpuscular Hgb 32.3 pg (27.0-32.0); Mean Corpuscular Volume 95.6 fL (81-99); Monocyte# 0.48 X10^3/uL; Monocyte% 11.3 % (0-10); NRBC Flagged by Analyzer 0 % (0-5); Neutrophil # 1.65 X10^3/uL (2.7-7.7); Neutrophil % 38.9 % (47-70); Platelet Count 230 K/mm3 (150-450); RBC Distribution Width SD 45.9 fl (35.1-43.9); Red Blood Count 3.65 M/mm3 (4.2-5.4); White Blood Count 4.3 K/mm3 (4.4-11.0)
[2022-03-18 16:43] LABS: Anion Gap 6 (5-15); BUN 15 mg/dL (7-18); BUN/Creat Ratio 16.8 RATIO (10-20); Calcium,Total 8.7 mg/dL (8.5-10.1); Chloride 96 mmol/L (98-107); Creatinine, Serum 0.89 mg/dL (0.55-1.02); EST Glomerular Filtration Rate 65 mL/min (>60); Est Glom Filt Rate - Afr Amer 78 mL/min (>60); Glucose 117 mg/dL (74-106); Potassium 4.2 mmol/L (3.5-5.1); Sodium Level 130 mmol/L (136-145); Thyroid Stim Hormone (TSH) 1.61 uIU/mL (0.358-3.74)
[2022-03-25 13:58] LABS: Vitamin D 1,25-Dihydroxy 57.2 pg/mL (24.8-81.5)
== END | disposition home or self-care (01) ==
LOC: LAB 15:25
PROVIDERS: PCP Internal Medicine; Referring Provider Physician Assistant Medical; Visit Provider Physician Assistant Medical
DX: R07.9 Chest pain, unspecified (principal); R53.82 Chronic fatigue, unspecified; I34.1 Nonrheumatic mitral (valve) prolapse
CPT/HCPCS: 36415; 80048; 82652; 84443; 85025

== ENCOUNTER 2022-04-09 12:43 | Outpatient (CLI) | payer MEDICARE, OTHER, SELFPAY ==
--- NOTE | 2022-04-09 12:47 | ECHOD_ITS ---
Reason For Study: Chest Pain Procedure This was a 2D Doppler, Color Flow transthoracic echocardiogram. Exam performed in department. Left Ventricle Normal LV size. Left ventricular systolic function is normal. The estimated ejection fraction is 55 %. No regional wall motion abnormalities noted. Right Ventricle Normal RV size. Normal systolic function. Atria Normal left atrium. Normal right atrium. Mitral Valve Bileaflet diffuse mitral valve thickening. Mild (1+) mitral valve insufficiency. Tricuspid Valve Normal tricuspid valve. Mild (1+) tricuspid valve insufficiency. Pulmonary artery systolic pressure is 40 mmHg. Aortic Valve Trisinus/trileaflet aortic valve. Pulmonic Valve Normal pulmonic valve. Trivial pulmonic valve insufficiency. Great Vessels Normal aortic root. The pulmonary artery is normal size. Normal inferior vena cava. Pericardium/Pleural No pericardial effusion. MMode/2D Measurements & Calculations LVIDd: 4.0 cm IVSd: 0.81 cm Ao root diam: 2.5 cm LVIDs: 2.3 cm LVPWd: 0.80 cm RVDd: 2.8 cm FS: 42.0 % LAV(MOD-bp): 31.0 ml LVAd ap4: 18.2 cm2 SV(MOD-sp4): 27.9 ml LAV(MOD-bp) Indexed: 19.3 ml/m2 LVLd ap4: 6.7 cm LAV(MOD-sp2): 34.9 ml EDV(MOD-sp4): 40.8 ml LAV(MOD-sp4): 28.2 ml EDV(sp4-el): 41.8 ml LVAs ap4: 9.1 cm2 LVLs ap4: 5.4 cm ESV(MOD-sp4): 12.9 ml ESV(sp4-el): 13.0 ml EF(MOD-sp4): 68.5 % EF(sp4-el): 69.0 % SV(sp4-el): 28.8 ml LA A4 area: 12.8 cm2 LA dimension(2D): 3.2 cm RA A4 area: 6.3 cm2 Doppler Measurements & Calculations MV E max reece: 86.6 cm/sec Lat Peak E' Reece: 7.6 cm/sec Med Peak E' Reece: 4.8 cm/sec MV A max reece: 33.9 cm/sec E/E' lat: 11.5 E/E' med: 18.0 MV E/A: 2.6 Ao V2 max: 110.3 cm/sec LV V1 max: 79.0 cm/sec PA V2 max: 72.4 cm/sec Ao max P.9 mmHg LV V1 max P.5 mmHg Ao V2 mean: 74.6 cm/sec Ao mean P.5 mmHg Ao V2 VTI: 26.3 cm PI end-d reece: 113.2 cm/sec TR max reece: 301.1 cm/sec TR max P.3 mmHg ECHO/Echo Complete Interpretation Summary Normal LV size. Left ventricular systolic function is normal. The estimated ejection fraction is 55 %. No regional wall motion abnormalities noted. Ordering Physician: Tanesha Britt Referring Physician: Rochelle Brandt Performed By: Jane Russell, KELLY, RVT
== END 2022-04-09 23:59 | disposition home or self-care (01) ==
LOC: CVS 12:44
PROVIDERS: PCP Internal Medicine; Visit Provider Physician Assistant Medical
DX: R07.9 Chest pain, unspecified (principal); I48.0 Paroxysmal atrial fibrillation; C50.212 Malignant neoplasm of upper-inner quadrant of left female breast; R53.82 Chronic fatigue, unspecified; I34.1 Nonrheumatic mitral (valve) prolapse; Z17.0 Estrogen receptor positive status [ER+]
CPT/HCPCS: 93306; 96372; J0897

== ENCOUNTER → 2022-05-14 | Outpatient (CLI) | payer MEDICARE, OTHER, SELFPAY ==
--- NOTE | 2022-05-14 11:36 | BI_ITS ---
MAMMOGRAPHY - UNILATERAL SCREENING: RIGHT BREAST REASON FOR EXAM: Female, 82 years old. Routine annual screening examination (unilateral). PERTINENT HISTORY: Personal history of breast cancer. Prior left mastectomy. TECHNIQUE: Digital unilateral breast nilton (3D mammographic acquisition) in the CC and MLO projections. 2-D mediolateral oblique (MLO) and craniocaudad (CC) views of both breasts were obtained. CAD: Full Field Digital Mammography with Computer Added Detection was performed. COMPARISON: Comparison is made with prior study dated 10/03/2021 and 05/01/2020. FINDINGS: Breast Composition: There are scattered areas of fibroglandular density. There are no dominant masses or suspicious calcifications. No other significant abnormalities are identified. There has been no significant change since the prior study. BI/SCREEN MAMM (CAD) W/NILTON UNI R IMPRESSION: Stable unilateral screening mammogram. Yearly follow-up mammogram recommended. (A) ASSESSMENT CATEGORY: BIRADS Category 1: Negative. A letter regarding these results will be sent to the patient by the facility within 30 days. Approximately 10% of breast cancers are not detected by mammography. A normal mammogram should not delay biopsy of a clinically suspicious abnormality. [id number] Electronically Signed: Edenilson Crisostomo MD at 12:51 EDT ,
--- NOTE | 2022-05-14 11:40 | BD_ITS ---
STUDY: DUAL ENERGY X-RAY ABSORPTIOMETRY / DXA REASON FOR EXAM: Female, 82 years old. SCREENING TECHNIQUE: Bone Mineral Density (BMD) measurements of lumbar spine and bilateral hips were obtained. COMPARISON: Comparison is made with prior study date 05/01/2020. FINDINGS: Lumbar Spine (L1-L4): g/cm2 (0.873) / T-score (-1.9) / Z-score (0.9) Findings are suggestive of osteopenia with a moderate fracture risk. Left Femur Total: g/cm2 (0.765) / T-score (-1.5) / Z-score (0.6) Left Femoral Neck: g/cm2 (0.662) / T-score (-1.7) / Z-score (0.6) Right Femur Total: g/cm2 (0.716) / T-score (-1.9) / Z-score (0.2) Right Femoral Neck: g/cm2 (0.577) / T-score (-2.5) / Z-score (-0.1) The T-Scores on the most recent prior examination were: Lumbar Spine (L1-L4): There has been improvement of bone density since the previous examination. Left Femur Total: which represents an improvement of 1%. Right Femur Total: which represents an improvement of 6.4%. BD/Dexa Bone Density Study IMPRESSION: The patient is considered osteopenic as outlined below according to World [place] Organization (WHO) criteria with a high fracture risk. There has been improvement of bone density since the previous examination. Reference Information: The T-score is the number of standard deviations above or below the standard which is normal for young adults at their peak bone mineral density. The World Health Organization (WHO) interprets the T-scores as follows: Above -1 Normal bone density Between -1 and -2.5 Osteopenia Equal to / or below -2.5 Osteoporosis As a practical clinical guideline, osteopenia may be graded as follows: Mild -1 through -1.5 Moderate -1.6 through -2.0 Severe -2.1 through -2.4 The Z-score is the number of standard deviations above or below age-matched controls. A Z-score of less than -1.5 would be considered abnormal. References: 1. NIH Osteoporosis and Related Bone Diseases www osteo.org 2. International Society for Clinical Densitometry www iscd.org 3. National Osteoporosis Foundation www nof.org Electronically Signed: Edenilson Crisostomo MD at 13:57 EDT ,
== END | disposition home or self-care (01) ==
LOC: OPBD 11:35
PROVIDERS: PCP Internal Medicine; Visit Provider Internal Medicine Hematology & Oncology
DX: Z12.31 Encounter for screening mammogram for malignant neoplasm of breast (principal); M85.80 Other specified disorders of bone density and structure, unspecified site; Z90.12 Acquired absence of left breast and nipple; Z79.811 Long term (current) use of aromatase inhibitors
CPT/HCPCS: 77063; 77067; 77080

== ENCOUNTER → 2022-05-16 | Outpatient (CLI) | payer MEDICARE, OTHER, SELFPAY ==
[2022-05-16 16:02] LABS: Absolute Lymphocyte Count 1.03 X10^3/uL (0.83-4.51); Absolute Neutrophil Count 1.6 X10^3/uL (2.0-7.7); Basophil# 0.03 X10^3/uL; Basophil% 0.8 % (0-1); Eosinophil# 0.35 X10^3/uL; Eosinophils% 9.8 % (0-5); Hematocrit 33.6 % (37-47); Hemoglobin 11.8 g/dL (12.0-15.0); Lymphocyte # 1.03 X10^3/ul (0.83-4.51); Lymphocyte % 28.9 % (19-41); Mean Corp Hgb Conc 35.1 g/dL (32-36); Mean Corpuscular Hgb 33.3 pg (27.0-32.0); Mean Corpuscular Volume 94.9 fL (81-99); Mean Platelet Vol. 9.7 fl (6.2-12.0); Monocyte# 0.53 X10^3/uL; Monocyte% 14.9 % (0-10); NRBC Flagged by Analyzer 0 % (0-5); Neutrophil # 1.61 X10^3/uL (2.7-7.7); Neutrophil % 45.3 % (47-70); Platelet Count 255 K/mm3 (150-450); RBC Distribution Width CV 13.7 % (11.6-14.6); RBC Distribution Width SD 48.6 fl (35.1-43.9); Red Blood Count 3.54 M/mm3 (4.2-5.4); White Blood Count 3.6 K/mm3 (4.4-11.0)
[2022-05-16 16:46] LABS: Anion Gap 6 (5-15); BUN 15 mg/dL (7-18); BUN/Creat Ratio 16.4 RATIO (10-20); Calcium,Total 8.7 mg/dL (8.5-10.1); Chloride 98 mmol/L (98-107); Creatinine, Serum 0.91 mg/dL (0.55-1.02); EST Glomerular Filtration Rate 63 mL/min (>60); Est Glom Filt Rate - Afr Amer 76 mL/min (>60); Glucose 104 mg/dL (74-106); Potassium 4.7 mmol/L (3.5-5.1); Sodium Level 130 mmol/L (136-145)
== END | disposition home or self-care (01) ==
LOC: LAB 14:52
PROVIDERS: PCP Internal Medicine; Visit Provider Internal Medicine
DX: E22.2 Syndrome of inappropriate secretion of antidiuretic hormone (principal)
CPT/HCPCS: 36415; 80048; 85025

== ENCOUNTER → 2022-05-29 | Outpatient (CLI) | payer MEDICARE, OTHER, SELFPAY ==
[2022-05-29 15:23] LABS: Vitamin B12 509 pg/mL (211-911)
[2022-05-29 15:34] LABS: Ferritin 20 ng/mL (8-252); Iron 97 ug/dL (50-170)
== END | disposition home or self-care (01) ==
LOC: MTLAB 12:39
PROVIDERS: PCP Internal Medicine; Referring Provider Psychiatry & Neurology Neurology; Visit Provider Psychiatry & Neurology Neurology
DX: D64.9 Anemia, unspecified (principal); Z86.2 Personal history of diseases of the blood and blood-forming organs and certain disorders involving the immune mechanism
CPT/HCPCS: 82607; 82728; 82746; 83540

== ENCOUNTER 2022-06-20 08:30 | Outpatient (RCR) | payer MEDICARE, OTHER, SELFPAY ==
--- NOTE | 2022-01-01 11:32 | HP.PTEVAL ---
Patient's Visit Information JULIANNA TUCKER is a 81 year old F referred to Physical Therapy by AL DELGADILLO with a diagnosis of CHRONIC RIGHT SHOULDER PAIN,BALANCE PROBLEM. Date of Evaluation: 01/01/22 Physical Therapist: Jorge Pedro, PT, Cert MDT, OCS - Visit Plan Frequency: 2x /Week Duration: 4 Weeks Plan: PT INTERVETIONS RTC/SCPULAR STRENGTHENING ,POSTURAL EX'S,NBALNCE PROGRAM AND FUNCTIONAL STRENGTHENING - Subjective This 81 y/o female presents to physical therapy with right shoulder pain and balance deficits. Patient has had shoulder pain for many years which has been progressively worse . Pain located in anterior shoulder described as a ache. Seen DR did x-rays and had x-rays OA. Aggravating lifting ,reaching OH activities reaching behind back . Alleviating heat ,rest. Denies paresthesia/tingling. Patient sleeping okay. Patient goals to improve strength and decrease pain. Patient has difficulty with balance . Patient motion sensitivity with vestibular and eyes . Patient has no falls . Patient has difficulty with stairs with one steps at time. Patient has difficulty walking on on uneven stairs. Patient balance and right shoulder pain causes deficits with function. SOCAIL: . VOACTION: RETIRED - Pain Right Shoulder Pain Intensity (Out of 10): 2 Pain Intensity Range: 10 - Objective POSTURE: mild forward posture. PALAPTION: tender AC. NEURO: denies paresthesia/tingling ,reflexes intact. AROM: RTC 4/5: infraspinatus ,subscapularis except supraspinatus , deltoid 4-/5. AROM: shoulder flexion 150 degrees ,abduction 130 degrees pain, ER 90. GAIT: reciprocal pattern. STAIRS : one step at a time. MMT: quads/hams 4/5,hip flexion/abd 4-/5 ,ankle 4/5 - Special Tests R Shoulder External Rotation Lag Test - RC Tear: Negative R Shoulder Supine Impingement Test - RC Tear: Negative R Shoulder Lift Off Test - Subscapular Tear: Negative R Shoulder Empty Can - SS: Negative R Shoulder Belly Press - SupScap: Negative R Shoulder Neer - Impingement: Positive R Shoulder Walter Nadeem - Impingement: Positive R Shoulder AC Resisted - AC: Negative - Balance/Special Test Scores Functional Gait Assessment Score: 20 % Disability: 33.3400 CATSIB Score (Max score 120 seconds): 110 Quick DASH Score: 47.7250 - Goals Goal 1:: Patient to be I with HEP Goal Time Frame: 4-6 Weeks Goal 2:: Patient to demonstrate 50% improvement with improve function right shoulder with less pain Goal Time Frame: 4-6 Weeks Goal 3:: Patient to improve CATSIB by 5 points to improve balance Goal Time Frame: 4-6 Weeks Goal 4:: Patient to improve functional gait assessment score by 5 points to improve gait/balance Goal Time Frame: 4-6 Weeks Goal 5:: Patient to improve quick dash by 5 points to improve QOL and function right shoulder Goal Time Frame: 4-6 Weeks - Rehabilitation Potential Physical Therapy Diagnosis: This patient has right shoulder pain with OA of joint with pain with functional activities as well as long standing h/o balance deficits thus benefit from skilled PT Rehabilitation Potential: Good - Anticipated Interventions Patient/Client Instruction: Educate patient on: Condition, Plan of Care For the Purpose of:: To decrease pain, To increase ROM, To improve muscle performance and motor function, To improve ability to perform ADL's, To increase tolerance to activity/condition/position, To improve ability of physical actions for home/community/work/leisure, To improve gait and locomotor functions, To improve health of tissue, To decrease soft tissue restriction, To increase flexibility/ROM, To improve endurance, To improve balance, To improve tolerance to ADL's Therapeutic Exercise to Include: Strength training, Endurance training, Balance training, Postural training, Flexibilty training, Gait and locomotor training, Active ROM Comment: RTC For the Purpose of:: To decrease pain, To increase ROM, To improve muscle performance and motor function, To improve ability to perform ADL's, To increase tolerance to activity/condition/position, To improve ability of physical actions for home/community/work/leisure, To improve gait and locomotor functions, To improve health of tissue, To decrease soft tissue restriction, To increase flexibility/ROM, To improve endurance, To improve balance Thank you for the opportunity to evaluate your patient. For Medicare and Medicare HMO plans, please review the plan of care and approve it. It will need to be FAXED BACK to us at [phone] for Medicare purposes. For Medicare only, by signing this I certify the plan of care. Please let me know if there are questions or concerns regarding this plan of care. Physician Signature: Date:
--- NOTE | 2022-01-31 09:29 | HP.PTDCSUM ---
It has been my pleasure to treat JULIANNA TUCKER referred by AL DELGADILLO, with the diagnosis of CHRONIC RIGHT SHOULDER PAIN,BALANCE PROBLEM for a total of 9 visit(s). Discharge Date: Please see the following information for a summary of their discharge status. Subjective: Patient is making some progress shoulder is intermittent .. Balance improving eventhough when I had mechanical fall up the incline Right Shoulder Pain Intensity (Out of 10): 2 % Improvement: 30 Objective/Function: POSTURE: WFL. GAIT:RECIPROCAL PATTERN. AROM: SHOULDER FLEXION 160 DEGREES ,ABD 150 DEGREES,ER 90,L1 IR. MMT: QUADS/HAMS/HIP/ANKLE 4/5. RTC 4/5 DELTOID 4-/5. STAIRS: ALTERNATE WITH RAILS Goal 1:: Patient to be I with HEP Goal Progress: Progressing Goal 2:: Patient to demonstrate 50% improvement with improve function right shoulder with less pain Goal Progress: Progressing Goal 3:: Patient to improve CATSIB by 5 points to improve balance Goal Progress: Progressing Goal 4:: Patient to improve functional gait assessment score by 5 points to improve gait/balance Goal Progress: Progressing Goal 5:: Patient to improve quick dash by 5 points to improve QOL and function right shoulder Goal Progress: Progressing Plan: PT INTERVETIONS RTC/SCPULAR STRENGTHENING ,POSTURAL EX'S,NBALNCE PROGRAM AND FUNCTIONAL STRENGTHENING If there are questions or concerns regarding this patient's physical therapy, please feel free to call me at [phone]. Thank you for the referral of this patient. Sincerely, Jorge Pedro, PT, Cert MDT, OCS Balance/Gait/Functional tests - Balance/Special Test Scores Functional Gait Assessment Score: 23 % Disability: 23.3400 CATSIB Score (Max score 120 seconds): 110 Quick DASH Score: 34.0900
--- NOTE | 2022-01-31 15:33 | HP.PTREVAL_ITS ---
AL OLDER, It has been my pleasure to treat JULIANNA TUCKER over the last 9 visits for CHRONIC RIGHT SHOULDER PAIN,BALANCE PROBLEM. Please see the progress note below for an update on the physical therapy plan of care! Subjective: Patient is making some progress shoulder is intermittent .. Balance improving eventhough when I had mechanical fall up the incline Objective/Function: POSTURE: WFL. GAIT:RECIPROCAL PATTERN. AROM: SHOULDER FLEXION 160 DEGREES ,ABD 150 DEGREES,ER 90,L1 IR. MMT: QUADS/HAMS/HIP/ANKLE 4/5. RTC 4/5 DELTOID 4-/5. STAIRS: ALTERNATE WITH RAILS Plan Plan: PT INTERVETIONS RTC/SCPULAR STRENGTHENING ,POSTURAL EX'S,NBALNCE PROGRAM AND FUNCTIONAL STRENGTHENING Balance/Gait/Functional tests - Balance/Special Test Scores Functional Gait Assessment Score: 23 % Disability: 23.3400 CATSIB Score (Max score 120 seconds): 110 Quick DASH Score: 34.0900 Goals Goal 1:: Patient to be I with HEP Goal Time Frame: 4-6 Weeks Goal Progress: Progressing Goal 2:: Patient to demonstrate 50% improvement with improve function right shoulder with less pain Goal Time Frame: 4-6 Weeks Goal Progress: Progressing Goal 3:: Patient to improve CATSIB by 5 points to improve balance Goal Time Frame: 4-6 Weeks Goal Progress: Progressing Goal 4:: Patient to improve functional gait assessment score by 5 points to improve gait/balance Goal Time Frame: 4-6 Weeks Goal Progress: Progressing Goal 5:: Patient to improve quick dash by 5 points to improve QOL and function right shoulder Goal Time Frame: 4-6 Weeks Goal Progress: Progressing Anticipated Interventions Patient/Client Instruction: Educate patient on: Condition, Plan of Care For the Purpose of:: To decrease pain, To increase ROM, To improve muscle performance and motor function, To improve ability to perform ADL's, To increase tolerance to activity/condition/position, To improve ability of physical actions for home/community/work/leisure, To improve gait and locomotor functions, To improve health of tissue, To decrease soft tissue restriction, To increase flexibility/ROM, To improve endurance, To improve balance, To improve tolerance to ADL's Therapeutic Exercise to Include: Strength training, Endurance training, Balance training, Postural training, Flexibilty training, Gait and locomotor training, Active ROM Comment: RTC For the Purpose of:: To decrease pain, To increase ROM, To improve muscle performance and motor function, To improve ability to perform ADL's, To increase tolerance to activity/condition/position, To improve ability of physical actions for home/community/work/leisure, To improve gait and locomotor functions, To improve health of tissue, To decrease soft tissue restriction, To increase flexibility/ROM, To improve endurance, To improve balance Please do not hesitate to contact me at [phone] by phone or Fax: if you have questions or concerns regarding this new plan of care! Sincerely, Jorge Pedro, PT, Cert MDT, OCS
--- NOTE | 2022-06-20 08:58 | HP.PTDCSUM ---
It has been my pleasure to treat JULIANNA TUCKER referred by AL DELGADILLO, with the diagnosis of CHRONIC RIGHT SHOULDER PAIN,BALANCE PROBLEM for a total of 23 visit(s). Discharge Date: 06/20/22 Please see the following information for a summary of their discharge status. Subjective: Patient seen MD for right knee. Patient plans try Aquatic therapy Right Shoulder Pain Intensity (Out of 10): 0 Right Knee Pain Intensity (Out of 10): 3 % Improvement: 75 Objective/Function: POSTURE : WFL. GAIT: RECIPROCAL PATTERN. MMT: 4/5 GROSSLY Goal 1:: Patient to be I with HEP Goal Progress: Goal Met Goal 2:: Patient to demonstrate 50% improvement with improve function right shoulder with less pain Goal Progress: Goal Met Goal 3:: Patient to improve CATSIB by 5 points to improve balance Goal Progress: Goal Met Goal 4:: Patient to improve functional gait assessment score by 5 points to improve gait/balance Goal Progress: Goal Met Goal 5:: Patient to improve quick dash by 5 points to improve QOL and function right shoulder Goal Progress: Goal Met Goal 6:: Patient improve 30sec sit-stand by 3-5 points to improve function Plan: D/C TO HEP Discharge Comments: HEP AND RECOMMEND AQUATIC THERAPY FOR RIGHT KNEE If there are questions or concerns regarding this patient's physical therapy, please feel free to call me at [phone]. Thank you for the referral of this patient. Sincerely, Jorge Pedro, PT, Cert MDT, OCS Balance/Gait/Functional tests - Balance/Special Test Scores Functional Gait Assessment Score: 29 % Disability: 3.3400 CATSIB Score (Max score 120 seconds): 120 Quick DASH Score: 9.0900 30 Second Chair Rise Test Seconds: 4
== END 2022-06-20 19:00 | disposition home or self-care (01) ==
LOC: PT 08:30
PROVIDERS: PCP Internal Medicine
DX: M25.511 Pain in right shoulder (principal); G89.29 Other chronic pain; R26.89 Other abnormalities of gait and mobility
CPT/HCPCS: 97110; 97162; 97530

== ENCOUNTER 2022-08-17 00:15 | Emergency (ER) | payer MEDICARE, OTHER, SELFPAY ==
[2022-08-17 00:16] VITALS: BP 173/99; PULSE 93; RESP 16; TEMP 36.5; O2SAT 99; BMI 18.6
--- NOTE | 2022-08-17 00:16 | EKG12_ITS ---
Test Reason : CP Blood Pressure : / mmHG Vent. Rate : 092 BPM Atrial Rate : 092 BPM P-R Int : 210 ms QRS Dur : 108 ms QT Int : 386 ms P-R-T Axes : 090 058 083 degrees QTc Int : 477 ms Sinus rhythm with 1st degree A-V block with occasional Premature ventricular complexes Incomplete right bundle branch block Minimal voltage criteria for LVH, may be normal variant ( Jose product ) Borderline ECG \ Confirmed by STEPHANIE THAO, JOSE ([id number]), film editor supervisor AMAYA COVARRUBIAS ([id number]) on 08/18/2022 10:04:08 AM Referred By: Confirmed By:JOSE BROWN MD
[2022-08-17] MEDS: Ondansetron 4 MG/2 ML Vial IV (01:23)
[2022-08-17] MEDS: 0.9% Normal Saline 1,000 ML 999 ML IV (01:23)
[2022-08-17] MEDS: Morphine 4 MG/ML Syringe IV (01:23)
[2022-08-17 01:30] LABS: Absolute Neutrophil Count 3.9 X10^3/uL (2.0-7.7); Basophil# 0.01 X10^3/uL; Basophil% 0.2 % (0-1); Hematocrit 36.9 % (37-47); Hemoglobin 12.8 g/dL (12.0-15.0); Lymphocyte % 30.5 % (19-41); Mean Corp Hgb Conc 34.7 g/dL (32-36); Mean Corpuscular Hgb 31.9 pg (27.0-32.0); Mean Platelet Vol. 10.2 fl (6.2-12.0); Monocyte# 0.41 X10^3/uL; Monocyte% 6.6 % (0-10); NRBC Flagged by Analyzer 0 % (0-5); Neutrophil # 3.89 X10^3/uL (2.7-7.7); Neutrophil % 62.5 % (47-70); Platelet Count 267 K/mm3 (150-450); RBC Distribution Width CV 12.8 % (11.6-14.6); RBC Distribution Width SD 43.2 fl (35.1-43.9); Red Blood Count 4.01 M/mm3 (4.2-5.4); White Blood Count 6.2 K/mm3 (4.4-11.0)
[2022-08-17 01:50] LABS: AST(SGOT) 25 U/L (15-37); Alanine Aminotransfer ALT/SGPT 28 U/L (13-56); Albumin, Serum 3.6 g/dL (3.2-5.0); Alkaline Phosphatase 68 U/L (45-117); Anion Gap 8 (5-15); BUN 13 mg/dL (7-18); BUN/Creat Ratio 16.1 RATIO (10-20); Bilirubin, Direct 0.23 mg/dL (0.00-0.30); Calcium,Total 8.3 mg/dL (8.5-10.1); Chloride 94 mmol/L (98-107); Creatinine, Serum 0.81 mg/dL (0.55-1.02); EST Glomerular Filtration Rate 73 mL/min (>60); Est Glom Filt Rate - Afr Amer 88 mL/min (>60); Estimated Creatinine Clearance 47.22 ml/min; Glucose 144 mg/dL (74-106); Lipase 143 U/L (73-393); Potassium 3.4 mmol/L (3.5-5.1); Protein, Total 7.6 g/dL (6.4-8.2); Sodium Level 127 mmol/L (136-145); Troponin-I HS 8 pg/mL (3.0-54.0)
--- NOTE | 2022-08-17 01:50 | RAD_ITS ---
STUDY: X-RAY - ACUTE ABDOMINAL SERIES REASON FOR EXAM: Female, 82 years old. Abdominal pain. TECHNIQUE: Single view of the chest. Supine, upright view(s) of the abdomen were obtained. COMPARISON: November 12, 2019. Chest October 24, 2021. FINDINGS: The lungs are clear and expanded. Normal size heart. Normal mediastinum and allison. Normal visualized pulmonary arteries. Normal visualized aortic arch and descending thoracic aorta. There is a non-specific bowel gas pattern. Stool is present throughout the colon which may represent constipation. The soft tissue structures of the abdomen and pelvis are unremarkable. Normal visualized osseous structures. RAD/Acute Abdomen Inc Chest IMPRESSION: No acute cardiopulmonary disease. Nonspecific bowel gas pattern without evidence of obstruction. Consider constipation. Electronically Signed: Gunner Colon MD at 2:19 EST Reading Location ID and State: [id number] / , Service support ,
[2022-08-17 02:16] VITALS: BP 159/88; PULSE 85; RESP 16; O2SAT 99
[2022-08-17] MEDS: Metoclopramide 10 MG/2 ML Vial IV (02:59)
--- NOTE | 2022-08-17 04:51 | ED.RN ---
patient has kept her gayle arik down but reports still nauseated
--- NOTE | 2022-08-17 05:30 | EDS_ITS ---
HPI History of Present Illness Chief Complaint: Chest Pain Narrative Narrative: Patient is an 82-year-old female with past medical history of hyponatremia SIADH and paroxysmal atrial fibrillation. She states that today around 5 PM she developed upper abdominal discomfort with nausea. She states as time progressed she felt like the pain was now radiating up towards her chest and she developed bouts of vomiting. She states that secondary to the worsening symptoms she was concerned that this could be cardiac in nature as she does have a history of cardiac dysrhythmia and therefore comes in for evaluation. Patient denies any known sick contacts. 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) Chronic diarrhea Chronic hyponatremia Compression fracture of L1 lumbar vertebra Dehydration Diverticulitis Dysequilibrium GERD (gastroesophageal reflux disease) history of blood transfusion IBS (irritable bowel syndrome) Intestinal disease, parasitic Lichen sclerosus Migraine Nonrheumatic mitral (valve) prolapse Osteopenia Osteopenia Osteopenia 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 Ovarian cyst Paroxysmal atrial fibrillation Paroxysmal atrial flutter SIADH (syndrome of inappropriate ADH production) Syncope (07/13/19) Tachycardia Tendinitis of right shoulder TIA (transient ischemic attack) Vaginal dryness Weakness Home Medications cholecalciferol (vitamin D3) 10 mcg (400 unit) capsule 1,000 unit PO DAILY supplement 07/13/19 [History Last Taken 11/11/19] denosumab 60 mg/mL subcutaneous syringe (Prolia) 60 mg subcut [id number] bone density 08/16/19 [History Last Taken Unknown] meclizine 12.5 mg tablet 12.5 mg PO TID PRN PRN Vertigo #20 tabs 11/14/19 [Rx Last Taken Unknown] dofetilide 250 mcg capsule 250 mcg PO Q12 afib #180 caps 10/22/21 [Rx Last Taken Unknown] esomeprazole magnesium 40 mg capsule,delayed release 40 mg PO DAILY #90 caps 11/14/21 [Rx Last Taken Unknown] metoprolol succinate 25 mg tablet,extended release 24 hr 25 mg PO .COMPLEX #135 tabs 02/18/22 [Rx Last Taken Unknown] magnesium oxide 400 mg (241.3 mg magnesium) tablet 400 mg PO DAILY #90 tabs 05/16/22 [Rx Last Taken Unknown] Bilaterl knee high compression stockings (07-03) #2 ea 05/29/22 [Rx Last Taken Unknown] calcium carbonate 600 mg-vitamin D3 5 mcg (200 unit) tablet 2 tab PO DAILY supplement 05/29/22 [History Last Taken Unknown] fludrocortisone 0.1 mg tablet 0.05 mg .Route .COMPLEX #45 tabs 05/29/22 [Rx Last Taken Unknown] anastrozole 1 mg tablet 1 mg PO QHS #90 tabs 06/02/22 [Rx Last Taken Unknown] clobetasol 0.05 % topical cream 1 applic topical .COMPLEX #15 grams 08/05/22 [Rx Last Taken Unknown] apixaban 5 mg tablet 5 mg PO BID #60 tabs 08/06/22 [Rx Last Taken Unknown] metoclopramide HCl 10 mg tablet (Reglan) 10 mg PO 4X/DAY PRN PRN nausea and vomiting #28 tabs 08/17/22 [Rx Last Taken Unknown] Allergy/AdvReac Type Severity Reaction Status Date / Time cantaloupe Allergy Severe Anaphylaxis Verified 07/02/22 10:29 grass pollen Allergy Severe Unknown Verified 07/02/22 10:29 Penicillins Allergy Severe Anaphylaxis Verified 07/02/22 10:29 Sulfa (Sulfonamide Allergy Unknown Other Verified 07/02/22 10:29 Antibiotics) mold Allergy Unknown Verified 07/02/22 10:29 pollen extracts Allergy Unknown Verified 07/02/22 10:29 erythromycin base AdvReac Severe Unknown Verified 07/02/22 10:29 lansoprazole [From Prevacid] AdvReac Severe Nausea/Vom/ Verified 07/02/22 10:29 Diarrhea adhesive tape AdvReac Intermediate Rash Verified 07/02/22 10:29 Family History Father Unknown family medical history Mother Uterine cancer Thyroid disorder Kidney disease Hypertension CHF (congestive heart failure) Arthritis Surgical History H/O breast biopsy H/O left mastectomy H/O lymph node biopsy History of cataract surgery History of colonoscopy (05/2019) History of dilation and curettage History of esophagogastroduodenoscopy (EGD) (05/2019) History of left heart catheterization (09/2012) History of radiofrequency ablation (RFA) procedure for cardiac arrhythmia (08/2013) History of removal of ovarian cyst Social History Smoking Status: Never smoker alcohol intake: current alcohol intake frequency: holidays/special occasions only substance use type: does not use caffeine: Yes what type of physical activity do you participate in: walking and yoga frequency: 3-4 times per week seatbelt use: always do you feel safe at home: Yes additional social history: -Tony Patient and are both retired ROS ROS ED Constitutional Constitutional ED: Denies chills or fever(s) ENT ENT ED: Denies sore throat Cardiovascular Cardiovascular: Reports palpitations and racing heartbeat; Denies chest pain Respiratory/Chest Respiratory/Chest: Denies cough or dyspnea Gastrointestinal Gastrointestinal: Reports abdominal pain, nausea and vomiting; Denies diarrhea Genitourinary Genitourinary ED: Denies dysuria Musculoskeletal Musculoskeletal: Denies myalgias Integumentary Denies rash Neurologic Neurologic: Denies headache(s) Hematologic/Lymphatic Hematologic/Lymphatic: Reports easy bleeding and easy bruising EXAM Physical Exam Const Vital Signs: 08/17/22 00:16 08/17/22 00:21 08/17/22 02:16 Temperature 97.7 F L Temperature Source Oral Pulse Rate 93 85 Respiratory Rate 16 16 Respiratory Effort Normal Non-Labored Respiratory Pattern Irregular Blood Pressure 173/99 H 159/88 H Blood Pressure Mean 123 111 Pulse Ox 99 99 Oxygen Delivery Method Room Air Room Air 08/17/22 05:46 Temperature Temperature Source Pulse Rate 82 Respiratory Rate 16 Respiratory Effort Respiratory Pattern Blood Pressure 139/72 H Blood Pressure Mean Pulse Ox 98 Oxygen Delivery Method Positive well nourished and well developed General Appearance ED: well developed HEENT Reports dry mucous membranes HEENT Narrative: Mucous membranes are dry and tacky without secondary changes to suggest infection in the posterior pharynx Mouth ED: Yes dry mucous membranes Mouth: dry mucous membranes Eyes PERRL and EOMs intact bilaterally General Eye ED: Negative for scleral icterus Neck supple and no JVD Resp normal respiratory effort and clear to auscultation bilaterally Cardio regular rate and regular rhythm Rate: other Other Details: Radial pulses are plus 2 out of 4 bilaterally are equal and symmetric Carotid pulses are equal and symmetric as well There is an occasional ectopic beat noted GI non-tender and non-distended GI Narrative: Abdomen is soft and nondistended with hyperactive bowel sounds. No pain with palpation no voluntary guarding no rigidity or pulsatile mass. Auscultation: hyperactive bowel sounds Palpation: soft Extremity normal to inspection Neuro oriented x3 and CN's II-XII intact bilaterally Sensorium / Orientation: alert Psych Psych Narrative: Patient has a depressed/flat affect Skin no rashes or lesions noted Skin Narrative: Skin turgor slightly increased General Skin Exam: Negative for jaundice MDM MDM MDM Narrative Medical decision making narrative: Patient presented to the ER afebrile with a soft nonsurgical abdomen. She reported pain was initially in the upper abdomen and then began to move up into the chest with bouts of vomiting. As this is not classic cardiac disease I chose to focus mainly on the abdomen but did do an EKG and a single troponin. EKG revealed no acute current of injury or true dysrhythmia change. Her troponin was also normal at 8. Her sodium is down to 127 but chart review reveals that this is chronic for her and her baseline is approximately 130. Otherwise there are no clinically significant findings. Patient was given 1 L of IV fluid and initially Zofran. She reported persistent nausea so then Reglan was added. After the Reglan was provided her nausea improved and she was able to drink gayle arik without bouts of recurrent vomiting. On reevaluation her abdomen remains soft and nonsurgical. Therefore at this time as she does not have a fever or white count her abdomen is soft and nonsurgical and her labs are near her baseline and I do not feel there is need for further evaluation in the ER. Also she is able now to keep down oral fluid she can be given symptomatic medication and discharged home. She was advised that if she continued to have bouts of vomiting despite taking the oral Reglan that she can return and patient and agree to this plan of care. Lab Data Attestation: I reviewed the patient's lab results. Labs: Laboratory Results - last 24 hr 08/17/22 08/17/22 01:25 01:25 WBC 6.2 RBC 4.01 L Hgb 12.8 Hct 36.9 L MCV 92.0 MCH 31.9 MCHC 34.7 RDW Std Deviation 43.2 RDW Coeff of Idania 12.8 Plt Count 267 MPV 10.2 Immature Gran % (Auto) 0.200 Neut % (Auto) 62.5 Lymph % (Auto) 30.5 Edgar % (Auto) 6.6 Eos % (Auto) 0.0 Baso % (Auto) 0.2 Absolute Neuts (auto) 3.9 Absolute Lymphs (auto) 1.90 Nucleated RBC % 0 Sodium 127 L Potassium 3.4 L Chloride 94 L Carbon Dioxide 25.0 Anion Gap 8 BUN 13 Creatinine 0.81 Estim Creat Clear Calc 47.22 Est GFR (MDRD) Af Amer 88 Est GFR (MDRD) Non-Af 73 BUN/Creatinine Ratio 16.1 Glucose 144 H Calcium 8.3 L Magnesium 2.0 Total Bilirubin 0.90 Direct Bilirubin 0.23 AST 25 ALT 28 Alkaline Phosphatase 68 Troponin I High Sens 8 Total Protein 7.6 Albumin 3.6 Globulin 4.0 Lipase 143 Radiography Diagnostic Testing: Clinical Impression(s) from Imaging Studies Acute Abdomen Series 08/17/22 01:50 IMPRESSION: No acute cardiopulmonary disease. Nonspecific bowel gas pattern without evidence of obstruction. Consider constipation. Electronically Signed: Gunner Colon MD at 2:19 EST Reading Location ID and State: [id number] / , Service support , Acute abdominal series with 1 view chest as interpreted by the emergency medicine physician reveals a nonobstructive bowel gas pattern with stool present consistent with constipation. Chest x-ray component reveals no acute infiltrate pneumothorax or pleural effusion Discharge Plan Triage Chief Complaint: Chest Pain ED Provider: Minesh Briones Dx/Rx/DC Orders Clinical Impression: Nausea & vomiting, Hyponatremia, Dehydration Instructions: Dehydration, ED Vomiting (Adult) Prescriptions: New metoclopramide HCl [Reglan] 10 mg tablet 10 mg PO 4X/DAY PRN PRN (Reason: nausea and vomiting) Qty: 28 0RF No Action Prolia 60 mg/mL syringe 60 mg SC [id number] (DME) Bilaterl knee high compression stockings (10-20) See Rx Instructions .Route .MEDSUPPLY Qty: 2 0RF Rx Instructions: As directed fludrocortisone 0.1 mg tablet 0.05 mg .ROUTE .COMPLEX Qty: 45 4RF Rx Instructions: 0.05 mg po every Thursday, Thursday and Thursday cholecalciferol (vitamin D3) 400 UNIT capsule 1,000 unit PO DAILY calcium carbonate-vitamin D3 600 mg-5 mcg (200 unit) tablet 2 tab PO DAILY meclizine 12.5 MG tablet 12.5 mg PO TID PRN PRN (Reason: Vertigo) Qty: 20 0RF dofetilide 250 mcg capsule 250 mcg PO Q12 Qty: 180 3RF esomeprazole magnesium 40 mg capsule,delayed release(DR/EC) 40 mg PO DAILY Qty: 90 3RF metoprolol succinate 25 mg tablet extended release 24 hr 25 mg PO .COMPLEX Qty: 135 3RF Rx Instructions: 1/2 tablet (12.5 mg) in the morning and a whole tablet (25 mg) at bedtime magnesium oxide 400 mg (241.3 mg magnesium) tablet 400 mg PO DAILY Qty: 90 3RF anastrozole 1 mg tablet 1 mg PO QHS Qty: 90 1RF clobetasol 0.05 % cream 1 applic TOPICAL .COMPLEX Qty: 15 0RF Rx Instructions: 1 applic TOPICAL apply thin layer as directed bid X 2 weeks then daily X 2 weeks; apply thin layer; massage in to cover area apixaban 5 mg tablet 5 mg PO BID Qty: 60 11RF Primary Care Provider: Rochelle Brandt Referrals: Rochelle Brandt MD [Primary Care Provider] - Activity Restrictions/Additional Instructions: Take the Reglan as directed to control nausea and vomiting and keep yourself well-hydrated. Your work-up is consistent with a viral stomach infection which will last on average 3 to 7 days. If you are continue to have bouts of emesis d espite taking the Reglan or have any further concerns please return to the ER for repeat evaluation Disposition Disposition: Home, Self Care Discharge Date/Time: 08/17/22 05:47
[2022-08-17 05:46] VITALS: BP 139/72; PULSE 82; RESP 16; O2SAT 98
== END 2022-08-17 05:47 | disposition home or self-care (01) ==
PROVIDERS: Emergency Provider Emergency Medicine; PCP Internal Medicine; Visit Provider Emergency Medicine
DX: R11.2 Nausea with vomiting, unspecified (principal); I48.0 Paroxysmal atrial fibrillation; E87.1 Hypo-osmolality and hyponatremia; E86.0 Dehydration; R07.9 Chest pain, unspecified; R10.9 Unspecified abdominal pain
CPT/HCPCS: 74022; 80048; 80076; 83690; 83735; 84484; 85025; 87428; 93005; 96361; 96374; 96375; 99283; J7030; A4216; J2405

== ENCOUNTER → 2022-11-14 | Outpatient (CLI) | payer MEDICARE, OTHER, SELFPAY ==
[2022-11-14 08:51] LABS: Urine Sodium 55 mmol/L (Not Establ.)
[2022-11-14 09:09] LABS: Anion Gap 7 (5-15); BUN 15 mg/dL (7-18); BUN/Creat Ratio 18.6 RATIO (10-20); Calcium,Total 8.8 mg/dL (8.5-10.1); Chloride 96 mmol/L (98-107); Creatinine, Serum 0.81 mg/dL (0.55-1.02); EST Glomerular Filtration Rate 73 mL/min (>60); Est Glom Filt Rate - Afr Amer 88 mL/min (>60); Glucose 87 mg/dL (74-106); Potassium 4.2 mmol/L (3.5-5.1); Sodium Level 133 mmol/L (136-145)
[2022-11-14 09:47] LABS: Osmolality, Urine 288 mOsm/KG
== END | disposition home or self-care (01) ==
LOC: LAB 07:36
PROVIDERS: PCP Internal Medicine; Referring Provider Internal Medicine Nephrology; Visit Provider Internal Medicine Nephrology
DX: E87.1 Hypo-osmolality and hyponatremia (principal)
CPT/HCPCS: 36415; 80048; 83935; 84300

== ENCOUNTER 2022-11-21 09:00 | Outpatient (RCR) | payer MEDICARE, OTHER, SELFPAY ==
--- NOTE | 2022-07-01 07:59 | HP.PTEVAL ---
Patient's Visit Information JULIANNA TUCKER is a 82 year old F referred to Physical Therapy by DARYN ALDANA with a diagnosis of PRIMARY OSTEOARTHRITIS OF RIGHT KNEE ,CHRONIC PAIN RIGHT KNEE ,. Date of Evaluation: 07/01/22 Physical Therapist: Jorge Pedro, PT, Cert MDT, OCS - Visit Plan Frequency: 2x /Week Duration: 4 Weeks Plan: PT INTERVETIONS AQUATIC THERAPY FOR ROM ,STRENGTH QUADS/HAMS/HIP ,BALANCE ,FLEXABLITY AND FUNCTIONAL STRENGTHENING - Subjective This 82 y/o female presents to physical therapy with right knee pain OA . Patient has right knee pain many years ~ 30 years gradually worsening. Patient has been in PT for knee not in Aquatics . Patient also has been for balance . Patient pain located right knee global but > lateral aspect described as ache and sharp pain. Aggravating factors unable to squat ,kneel ,and on step at time with stairs and extended walking . Alleviating factors rest . Patient has seen DR lawton x-rays showed DJD > lateral ,cortisone injections in May. Patient may look into gel synvix injections. Pain doesn't affects sleeping. Patient pain affects QOL and function . SOCIAL: . VOCATION: retired - Pain Right Knee Pain Intensity (Out of 10): 3 Pain Intensity Range: 10 - Objective POSTURE: mild forward posture genu valgum. GAIT: reciprocal pattern mild decrease stance time. NEURO: intact. PALPTION: tender > lateral knee joint. MMT( peak force ) : quads 24.4,hamstriings 17.5 ,hip flexion 23.9.hip abd 23.8. AROM: supine knee flexion 0-135 degrees pain at ER. FLEXABLITY: hamstrings WFL - Special Tests R Knee Scottie - Meniscus: Negative R Knee Anabelle - ACL: Negative R Knee Valgus - MCL: Negative R Knee Varus - LCL: Negative R Knee Patellar Apprehension - PFS: Positive R Knee Patellar Grind - PFS: Positive - Balance/Special Test Scores Lower Extremity Functional Score: 36 - Goals Goal 1:: Patient to be I with Aquatic therapy for knee Goal Time Frame: 4-6 Weeks Goal 2:: Patient to demonstrate 50% improvement with increase function and decrease pain. Goal Time Frame: 4-6 Weeks Goal 3:: Patient to improve peak force MMT by 5 for quads/hams to improve function. Goal Time Frame: 4-6 Weeks Goal 4:: Patient to improve LFES score by 5 points > to improve function and QOL Goal Time Frame: 4-6 Weeks - Rehabilitation Potential Physical Therapy Diagnosis: This patient has right knee pain with DJD with decrease function with kneeling ,stairs ,extended walking and weakness thus recommend skilled PT. Rehabilitation Potential: Good - Anticipated Interventions Patient/Client Instruction: Educate patient on: Condition, Plan of Care For the Purpose of:: To decrease pain, To increase ROM, To improve muscle performance and motor function, To improve ability to perform ADL's, To increase tolerance to activity/condition/position, To improve ability of physical actions for home/community/work/leisure, To improve health of tissue, To decrease soft tissue restriction, To increase flexibility/ROM, To improve tolerance to ADL's Therapeutic Exercise to Include: Strength training, Power training, Endurance training, Balance training, Postural training, Flexibilty training, In an aquatic setting, Active ROM For the Purpose of:: To decrease pain, To increase ROM, To improve muscle performance and motor function, To improve ability to perform ADL's, To increase tolerance to activity/condition/position, To improve performance and independence with ADL's, To improve ability of physical actions for home/community/work/leisure, To improve gait and locomotor functions, To improve health of tissue, To decrease soft tissue restriction, To increase flexibility/ROM Thank you for the opportunity to evaluate your patient. For Medicare and Medicare HMO plans, please review the plan of care and approve it. It will need to be FAXED BACK to us at [phone] for Medicare purposes. For Medicare only, by signing this I certify the plan of care. Please let me know if there are questions or concerns regarding this plan of care. Physician Signature: Date:
--- NOTE | 2022-09-01 12:58 | HP.PTREVAL ---
DARYN ALDANA, It has been my pleasure to treat JULIANNA TUCKER over the last 8 visits for PRIMARY OSTEOARTHRITIS OF RIGHT KNEE ,CHRONIC PAIN RIGHT KNEE. Please see the progress note below for an update on the physical therapy plan of care! Subjective: Water ex's really helped my pain. Patient has been doing some yoga workout. Patient had injection gel injections series of 3 started in [facility] Objective/Function: POSTURE: WFL. GAIT: reciprocal pattern. MMT: (peak force) quads 32,4,hams 24.8. AROM: 0-130 degrees Plan Plan: CONT WITH POC 2XWEEK 4WEEKS. PT INTERVETIONS AQUATIC THERAPY FOR ROM ,STRENGTH QUADS/HAMS/HIP ,BALANCE ,FLEXABLITY AND FUNCTIONAL STRENGTHENING Balance/Gait/Functional tests - Balance/Special Test Scores Lower Extremity Functional Score: 43 Goals Goal 1:: Patient to be I with Aquatic therapy for knee Goal Time Frame: 4-6 Weeks Goal Progress: Progressing Goal 2:: Patient to demonstrate 50% improvement with increase function and decrease pain. Goal Time Frame: 4-6 Weeks Goal Progress: Progressing Goal 3:: Patient to improve peak force MMT by 5 for quads/hams to improve function. Goal Time Frame: 4-6 Weeks Goal Progress: Progressing Goal 4:: Patient to improve LFES score by 5 points > to improve function and QOL Goal Time Frame: 4-6 Weeks Goal Progress: Progressing Anticipated Interventions Patient/Client Instruction: Educate patient on: Condition, Plan of Care For the Purpose of:: To decrease pain, To increase ROM, To improve muscle performance and motor function, To improve ability to perform ADL's, To increase tolerance to activity/condition/position, To improve ability of physical actions for home/community/work/leisure, To improve health of tissue, To decrease soft tissue restriction, To increase flexibility/ROM, To improve tolerance to ADL's Therapeutic Exercise to Include: Strength training, Power training, Endurance training, Balance training, Postural training, Flexibilty training, In an aquatic setting, Active ROM For the Purpose of:: To decrease pain, To increase ROM, To improve muscle performance and motor function, To improve ability to perform ADL's, To increase tolerance to activity/condition/position, To improve performance and independence with ADL's, To improve ability of physical actions for home/community/work/leisure, To improve gait and locomotor functions, To improve health of tissue, To decrease soft tissue restriction, To increase flexibility/ROM Please do not hesitate to contact me at [phone] by phone or if you have questions or concerns regarding this new plan of care! Sincerely, Jorge Pedro, PT, Cert MDT, OCS
--- NOTE | 2022-10-17 09:40 | HP.PTREVAL ---
DARYN ALDANA, It has been my pleasure to treat JULIANNA TUCKER over the last 17 visits for PRIMARY OSTEOARTHRITIS OF RIGHT KNEE ,CHRONIC PAIN RIGHT KNEE. Please see the progress note below for an update on the physical therapy plan of care! Subjective: Patient doing well in water. But had motion sensitivity in water last session Objective/Function: POSTURE: WFL. GAIT: reciprocal pattern. MMT: quads 32.3,hamstrings 28.9 ,hip flexion 25.8. AROM: flexion 0-140 degrees supine Plan Plan: CONT WITH POC 2XWEEK 4WEEKS. PT INTERVETIONS AQUATIC THERAPY FOR ROM, STRENGTH QUADS/HAMS/HIP, BALANCE, FLEXIBILITY AND FUNCTIONAL STRENGTHENING. Balance/Gait/Functional tests - Balance/Special Test Scores Lower Extremity Functional Score: 43 Goals Goal 1:: Patient to be I with Aquatic therapy for knee Goal Time Frame: 4-6 Weeks Goal Progress: Progressing Goal 2:: Patient to demonstrate 50% improvement with increase function and decrease pain. Goal Time Frame: 4-6 Weeks Goal Progress: Progressing Goal 3:: Patient to improve peak force MMT by 5 for quads/hams to improve function. Goal Time Frame: 4-6 Weeks Goal Progress: Progressing Goal 4:: Patient to improve LFES score by 5 points > to improve function and QOL Goal Time Frame: 4-6 Weeks Goal Progress: Progressing Anticipated Interventions Patient/Client Instruction: Educate patient on: Condition, Plan of Care For the Purpose of:: To decrease pain, To increase ROM, To improve muscle performance and motor function, To improve ability to perform ADL's, To increase tolerance to activity/condition/position, To improve ability of physical actions for home/community/work/leisure, To improve health of tissue, To decrease soft tissue restriction, To increase flexibility/ROM, To improve tolerance to ADL's Therapeutic Exercise to Include: Strength training, Power training, Endurance training, Balance training, Postural training, Flexibilty training, In an aquatic setting, Active ROM For the Purpose of:: To decrease pain, To increase ROM, To improve muscle performance and motor function, To improve ability to perform ADL's, To increase tolerance to activity/condition/position, To improve performance and independence with ADL's, To improve ability of physical actions for home/community/work/leisure, To improve gait and locomotor functions, To improve health of tissue, To decrease soft tissue restriction, To increase flexibility/ROM Please do not hesitate to contact me at [phone] by phone or if you have questions or concerns regarding this new plan of care! Sincerely, Jorge Pedro, PT, Cert MDT, OCS
--- NOTE | 2022-11-21 09:34 | HP.PTDCSUM ---
It has been my pleasure to treat JULIANNA TUCKER referred by DARYN ALDANA, with the diagnosis of PRIMARY OSTEOARTHRITIS OF RIGHT KNEE ,CHRONIC PAIN RIGHT KNEE for a total of 24 visit(s). Discharge Date: 11/21/22 Please see the following information for a summary of their discharge status. Subjective: Doing okay.. Doing well Right Knee Pain Intensity (Out of 10): 0 R Hip Pain Intensity (Out of 10): 0 % Improvement: 50 Objective/Function: POSTURE: mild forward posture. GAIT: reciprocal pattern. MMT: Quads/hams 4/5. AROM: supine knee flexion 0-140 degrees Goal 1:: Patient to be I with Aquatic therapy for knee Goal Progress: Goal Met Goal 2:: Patient to demonstrate 50% improvement with increase function and decrease pain. Goal Progress: Goal Met Goal 3:: Patient to improve peak force MMT by 5 for quads/hams to improve function. Goal Progress: Goal Met Goal 4:: Patient to improve LFES score by 5 points > to improve function and QOL Goal Progress: Goal Met Plan: D/C TO AQUATIC Discharge Comments: water therapy If there are questions or concerns regarding this patient's physical therapy, please feel free to call me at [phone]. Thank you for the referral of this patient. Sincerely, Jorge Pedro, PT, Cert MDT, OCS Balance/Gait/Functional tests - Balance/Special Test Scores Lower Extremity Functional Score: 47
== END 2022-11-21 14:44 | disposition home or self-care (01) ==
LOC: PT 09:00
PROVIDERS: PCP Internal Medicine
DX: M17.11 Unilateral primary osteoarthritis, right knee (principal); G89.29 Other chronic pain; M21.061 Valgus deformity, not elsewhere classified, right knee
CPT/HCPCS: 97110; 97113; 97162; 97530

== ENCOUNTER 2023-04-08 14:03 | Emergency (ER) | payer MEDICARE, OTHER, SELFPAY ==
[2023-04-08 14:05] VITALS: BP 176/72; PULSE 54; RESP 18; TEMP 36.5; O2SAT 97; BMI 18.5
--- NOTE | 2023-04-08 14:15 | ED.RN ---
CALLED RESPIRATORY FOR EKG
--- NOTE | 2023-04-08 15:04 | RAD_ITS ---
STUDY: X-RAY CHEST REASON FOR EXAM: Female, 83 years old. Chest pain TECHNIQUE: Single AP portable view of the chest. COMPARISON: Comparison is made with prior study August 17, 2022. FINDINGS: EKG electrodes are seen. The patient is status post left mastectomy and left axillary node dissection. There is hyperinflation of the lungs consistent with chronic obstructive lung disease (COPD). Left apical pleural scarring. Normal size heart. Normal mediastinum and allison. There is prominence of the pulmonary hilar arteries without peripheral pulmonary vascular congestion, suggesting pulmonary hypertension. Normal visualized aortic arch and descending thoracic aorta. There are degenerative changes of the visualized thoracic spine. Normal visualized ribs, clavicles, and shoulders. There is no demonstrated abnormality of the visualized soft tissue structures of the upper abdomen. RAD/Chest 1 View (Portable) IMPRESSION: Hyperinflation. Prominence of the pulmonary arteries bilaterally. The lungs are clear. Electronically Signed: Edenilson Crisostomo MD at 15:31 EDT ,
--- NOTE | 2023-04-08 15:04 | EKG12_ITS ---
Test Reason : NEAR SYNCOPE Blood Pressure : / mmHG Vent. Rate : 057 BPM Atrial Rate : 057 BPM P-R Int : 242 ms QRS Dur : 100 ms QT Int : 460 ms P-R-T Axes : 085 026 054 degrees QTc Int : 447 ms Sinus bradycardia with sinus arrhythmia with 1st degree A-V block Incomplete right bundle branch block Borderline ECG Confirmed by STEPHANIE THAO, JOSE ([id number]), book editor AMAYA COVARRUBIAS ([id number]) on 04/09/2023 1:25:24 PM Referred By: EDPHYS Confirmed By:JOSE BROWN MD
--- NOTE | 2023-04-08 15:07 | EDS_ITS ---
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) Chronic diarrhea Chronic hyponatremia Compression fracture of L1 lumbar vertebra COVID-19 Dehydration Diverticulitis Dysequilibrium GERD (gastroesophageal reflux disease) history of blood transfusion IBS (irritable bowel syndrome) Intestinal disease, parasitic Lichen sclerosus Migraine Nonrheumatic mitral (valve) prolapse Osteopenia Osteopenia Osteopenia 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 Ovarian cyst Paroxysmal atrial fibrillation Paroxysmal atrial flutter SIADH (syndrome of inappropriate ADH production) Syncope (07/13/19) Tachycardia Tendinitis of right shoulder TIA (transient ischemic attack) Vaginal dryness Weakness Home Medications denosumab 60 mg/mL subcutaneous syringe (Prolia) 60 mg subcut [id number] bone density 08/16/19 [History Last Taken Unknown] meclizine 12.5 mg tablet 12.5 mg PO TID PRN PRN Vertigo #20 tabs 11/14/19 [Rx Last Taken Unknown] Bilaterl knee high compression stockings (10-20) #2 ea 05/29/22 [Rx Last Taken Unknown] clobetasol 0.05 % topical cream 1 applic topical .COMPLEX #15 grams 08/05/22 [Rx Last Taken Unknown] apixaban 5 mg tablet 5 mg PO BID #60 tabs 08/06/22 [Rx Last Taken Unknown] metoclopramide HCl 10 mg tablet (Reglan) 10 mg PO 4X/DAY PRN PRN nausea and vomiting #28 tabs 08/17/22 [Rx Last Taken Unknown] calcium carbonate 600 mg calcium (1,500 mg) tablet 600 mg PO DAILY 10/14/22 [History Last Taken Unknown] cholecalciferol (vitamin D3) 10 mcg (400 unit) capsule 2,000 unit PO DAILY supplement 10/14/22 [History Last Taken Unknown] dofetilide 250 mcg capsule 250 mcg PO Q12 afib #180 caps 10/17/22 [Rx Last Taken Unknown] anastrozole 1 mg tablet 1 mg PO QHS #90 tabs 12/18/22 [Rx Last Taken Unknown] esomeprazole magnesium 40 mg capsule,delayed release See Rx Instructions .Route .COMPLEX #90 caps 12/18/22 [Rx Last Taken Unknown] magnesium oxide 400 mg (241.3 mg magnesium) tablet 400 mg PO DAILY #90 tabs 01/19/23 [Rx Last Taken Unknown] metoprolol succinate 25 mg tablet,extended release 24 hr 25 mg PO .COMPLEX #135 tabs 01/28/23 [Rx Last Taken Unknown] fludrocortisone 0.1 mg tablet 0.05 mg (1/2 x 0.1 mg) .Route .COMPLEX #8 tabs 04/07/23 [Rx Last Taken Unknown] vibegron 75 mg tablet (Gemtesa) 75 mg PO DAILY 04/07/23 [History Last Taken U nknown] Allergy/AdvReac Type Severity Reaction Status Date / Time cantaloupe Allergy Severe Anaphylaxis Verified 04/08/23 14:05 grass pollen Allergy Severe Unknown Verified 04/08/23 14:05 Penicillins Allergy Severe Anaphylaxis Verified 04/08/23 14:05 Sulfa (Sulfonamide Allergy Unknown Other Verified 04/08/23 14:05 Antibiotics) mold Allergy Unknown Verified 04/08/23 14:05 pollen extracts Allergy Unknown Verified 04/08/23 14:05 erythromycin base AdvReac Severe Unknown Verified 04/08/23 14:05 lansoprazole [From Prevacid] AdvReac Severe Nausea/Vom/ Verified 04/08/23 14:05 Diarrhea adhesive tape AdvReac Intermediate Rash Verified 04/08/23 14:05 Family History Father Unknown family medical history Mother Uterine cancer Thyroid disorder Kidney disease Hypertension CHF (congestive heart failure) Arthritis Surgical History H/O breast biopsy H/O left mastectomy H/O lymph node biopsy History of cataract surgery History of colonoscopy (05/2019) History of dilation and curettage History of esophagogastroduodenoscopy (EGD) (05/2019) History of left heart catheterization (09/2012) History of radiofrequency ablation (RFA) procedure for cardiac arrhythmia (08/2013) History of removal of ovarian cyst Social History Smoking Status: Never smoker alcohol intake: current alcohol intake frequency: holidays/special occasions only substance use type: does not use caffeine: Yes what type of physical activity do you participate in: walking and yoga frequency: 3-4 times per week seatbelt use: always do you feel safe at home: Yes additional social history: -Tony Patient and are both retired EXAM Physical Exam Const Vital Signs: 04/08/23 14:05 04/08/23 14:22 04/08/23 15:11 Temperature 97.7 F L Temperature Source Temporal Pulse Rate 54 L Respiratory Rate 18 Respiratory Effort Normal Non-Labored Blood Pressure 176/72 H Blood Pressure Mean 106 Pulse Ox 97 Oxygen Delivery Method Room Air Room Air 04/08/23 15:47 04/08/23 16:16 Temperature Temperature Source Pulse Rate 65 Respiratory Rate Respiratory Effort Blood Pressure 156/71 H Blood Pressure Mean 99 Pulse Ox Oxygen Delivery Method Room Air MDM MDM MDM Narrative Medical decision making narrative: HISTORY OF PRESENT ILLNESS: 83-year-old female here for near syncope. Patient was passed out. Notes diarrhea notes fasting. She further states she nearly passed out this afternoon. Denies any headache prior to passing out, chest pain, palpitations, abdominal pain. States she been fasting for blood work this morning also has been having several episodes of watery diarrhea. She denies any recent travel, antibiotics or surgery. Notes compliance with her A-fib medication regiment. No bleeding diathesis. No vomiting noted. REVIEW OF SYSTEMS: Pertinent positives: Near syncope, diarrhea Pertinent negatives: Headache, chest pain, abdominal pain, vomiting PHYSICAL EXAM: Nursing triage notes reviewed, Vital signs reviewed Constitutional: please see mdm HENT: MMM Eyes: Pupils equal round and reactive to light, Extraocular muscles intact Neck: No stridor, no JVD, full neck ROM Lungs: Clear to auscultation, No wheezing or rales. No increased work of breathing, no conversational dyspnea, no accessory muscle use, no nasal flaring. No respiratory distress noted Heart: Regular rate and rhythm, No murmurs, No rubs and No gallops, 2+ distal pulses (radial, femoral, posterior tibial) in all extremities Abdomen: Soft, there is no tenderness, rigidity, rebound or guarding, no obvious peritoneal signs, no palpable pulsatile abdominal masses, no auscultated abdominal bruit : No CVAT Extremities: No edema Neuro: No focal neurological deficits, cranial nerves II through XII intact, 5/5 strength in all extremities. Intact sensation to light touch in all extremities, 2+ reflexes bilateral patella tendons. Normal gait. No ataxia. Skin: No rash or lesions noted MEDICAL DECISION MAKING: Chief Complaint: Near syncope, diarrhea External records reviewed: Ejection fraction 2020 to 65% Factors affecting care: none anemia, a flutter, on Eliquis secondary to A-fib a flutter, IBS, GERD, Social determinants of health: Elderly History obtained from others: The patient's Consults: none ALL IMAGES (IF OBTAINED) HAVE BEEN PERSONALLY REVIEWED AND INTERPRETED BY MYSELF. EKG with n sinus bradycardia, prolonged TX interval, first-degree AV block right axis, normal intervals, no STEMI Troponin is negative, no evidence of myocardial ischemia BMP with hyponatremia, no anion gap to suggest endorgan hypoperfusion, no acute kidney injury BNP elevated consistent with increased myocardial stretch MDM Narrative: Patient was initially hypertensive otherwise hemodynamically stable, afebrile nontoxic-appearing. Exam without focal cardiopulmonary abnormalities. No focal neurologic deficits noted. No pulse deficits noted. I considered the following differential diagnosis: ACS, arrhythmia, anemia, electro normality, MAYANK dehydration Clinically patient's history is consistent with likely dehydration given fasting and diarrhea. Patient's electrolytes showed signs consistent with dehydration with hyponatremia. This replace with 1 L normal saline. There are no other significant electrolyte abnormalities. Initial EKG was not arrhythmia genic. Troponin was negative. Will wait for repeat troponin determine patient disposition from there. Delta troponin was negative. No clear life-limiting etiology. Suspect the patient's near syncope was secondary to dehydration given diarrhea and fasting for blood work. Encourage increased p.o. intake to follow with her primary care physician for further outpatient follow-up. The patient and/or family, caregivers express understanding. The patient and/or family, caregivers agrees with the plan. Shared decision making: I will have a discussion with the patient and or visitors regarding risk/benefits of further testing or admission. They will be made aware of of the risk/benefits inherent in this decision they will be given the opportunity to voice understanding. Total critical care time today provided was at least 0 minutes. This excludes s eparately billable procedures. Critical care time (if documented) is secondary to the patient having high probability of clinically significant/life threatening deterioration in the patient's condition which required my urgent intervention. Lab Data Attestation: I reviewed the patient's lab results. Lab results narrative: CBC without leukocytosis, severe anemia, no thrombocytopenia. BMP without evidence of significant electrolyte abnormalities, no anion gap, no acute kidney injury. Troponin is negative, no evidence of myocardial ischemia x2. BNP mildly elevated consistent with increased myocyte stretch. Labs: Laboratory Results - last 24 hr 04/08/23 04/08/23 15:10 18:30 WBC 4.0 L RBC 3.90 L Hgb 12.4 Hct 36.3 L MCV 93.1 MCH 31.8 MCHC 34.2 RDW Std Deviation 48.8 H RDW Coeff of Idania 14.2 Plt Count 248 MPV 9.9 Immature Gran % (Auto) 0.000 Neut % (Auto) 40.4 L Lymph % (Auto) 45.0 H [place] % (Auto) 12.9 H Eos % (Auto) 1.0 Baso % (Auto) 0.7 Absolute Neuts (auto) 1.6 L Absolute Lymphs (auto) 1.82 Nucleated RBC % 0 Sodium 129 L Potassium 3.9 Chloride 96 L Carbon Dioxide 29.0 Anion Gap 4 L BUN 15 Creatinine 0.87 Estim Creat Clear Calc 42.89 Est GFR (MDRD) Af Amer 80 Est GFR (MDRD) Non-Af 66 BUN/Creatinine Ratio 17.2 Glucose 90 Calcium 8.3 L Troponin I High Sens 4 4 B-Natriuretic Peptide 158.3 H Radiography Chest X-Ray - ED: Read by ED Physician Diagnostic Testing: Clinical Impression(s) from Imaging Studies Chest X-Ray 04/08/23 15:04 IMPRESSION: Hyperinflation. Prominence of the pulmonary arteries bilaterally. The lungs are clear. Electronically Signed: Edenilson Crisostomo MD at 15:31 EDT , I have personally reviewed the patient's chest x-ray. Chest x-ray is unrem arkable for pulmonary edema, pneumothorax, pneumonia or focal cardiopulmonary abnormality. Discharge Plan Triage Chief Complaint: Syncope ED Provider: Denzel Boone Dx/Rx/DC Orders Prescriptions: No Action Prolia 60 mg/mL syringe 60 mg SC [id number] (DME) Bilaterl knee high compression stockings (10-20) See Rx Instructions .Route .MEDSUPPLY Qty: 2 0RF Rx Instructions: As directed calcium carbonate 600 mg calcium (1,500 mg) tablet 600 mg PO DAILY magnesium oxide 400 mg (241.3 mg magnesium) tablet 400 mg PO DAILY Qty: 90 3RF Gemtesa 75 mg tablet 75 mg PO DAILY Patient Comments: take 1 tablet by mouth once daily fludrocortisone 0.1 mg tablet 0.05 mg .ROUTE .COMPLEX Qty: 8 5RF Rx Instructions: Take 1/2 tablet po every Thursday, Thursday and Thursday cholecalciferol (vitamin D3) 10 mcg (400 unit) capsule 2,000 unit PO DAILY meclizine 12.5 MG tablet 12.5 mg PO TID PRN PRN (Reason: Vertigo) Qty: 20 0RF metoclopramide HCl [Reglan] 10 mg tablet 10 mg PO 4X/DAY PRN PRN (Reason: nausea and vomiting) Qty: 28 0RF clobetasol 0.05 % cream 1 applic TOPICAL .COMPLEX Qty: 15 0RF Rx Instructions: 1 applic TOPICAL apply thin layer as directed bid X 2 weeks then daily X 2 weeks; apply thin layer; massage in to cover area apixaban 5 mg tablet 5 mg PO BID Qty: 60 11RF dofetilide 250 mcg capsule 250 mcg PO Q12 Qty: 180 3RF anastrozole 1 mg tablet 1 mg PO QHS Qty: 90 1RF esomeprazole magnesium 40 mg capsule,delayed release(DR/EC) See Rx Instructions .ROUTE .COMPLEX Qty: 90 3RF Dose Instruction: take 1 capsule by mouth daily Rx Instructions: take 1 capsule by mouth daily metoprolol succinate 25 mg tablet extended release 24 hr 25 mg PO .COMPLEX Qty: 135 3RF Rx Instructions: 1/2 tablet (12.5 mg) in the morning and a whole tablet (25 mg) at bedtime Primary Care Provider: Rochelle Brandt Referrals: Rochelle Brandt MD [Primary Care Provider] -
[2023-04-08] MEDS: 0.9% Normal Saline 1,000 ML 1000 ML IV (15:12)
[2023-04-08 15:18] LABS: Absolute Lymphocyte Count 1.82 X10^3/uL (0.83-4.51); Absolute Neutrophil Count 1.6 X10^3/uL (2.0-7.7); Basophil# 0.03 X10^3/uL; Basophil% 0.7 % (0-1); Eosinophil# 0.04 X10^3/uL; Hematocrit 36.3 % (37-47); Hemoglobin 12.4 g/dL (12.0-15.0); Lymphocyte # 1.82 X10^3/ul (0.83-4.51); Mean Corp Hgb Conc 34.2 g/dL (32-36); Mean Corpuscular Hgb 31.8 pg (27.0-32.0); Mean Corpuscular Volume 93.1 fL (81-99); Mean Platelet Vol. 9.9 fl (6.2-12.0); Monocyte# 0.52 X10^3/uL; Monocyte% 12.9 % (0-10); NRBC Flagged by Analyzer 0 % (0-5); Neutrophil # 1.63 X10^3/uL (2.7-7.7); Neutrophil % 40.4 % (47-70); Platelet Count 248 K/mm3 (150-450); RBC Distribution Width CV 14.2 % (11.6-14.6); RBC Distribution Width SD 48.8 fl (35.1-43.9)
[2023-04-08 15:34] LABS: Anion Gap 4 (5-15); BUN 15 mg/dL (7-18); BUN/Creat Ratio 17.2 RATIO (10-20); Calcium,Total 8.3 mg/dL (8.5-10.1); Chloride 96 mmol/L (98-107); Creatinine, Serum 0.87 mg/dL (0.55-1.02); EST Glomerular Filtration Rate 66 mL/min (>60); Est Glom Filt Rate - Afr Amer 80 mL/min (>60); Estimated Creatinine Clearance 42.89 ml/min; Glucose 90 mg/dL (74-106); Potassium 3.9 mmol/L (3.5-5.1); Sodium Level 129 mmol/L (136-145); Troponin-I HS (w/2H Reflex) 4 pg/mL (3.0-54.0)
[2023-04-08 15:41] LABS: BNP,B-Type NATRIURETIC PEPTIDE 158.3 pg/mL (0-100)
[2023-04-08 16:16] VITALS: BP 156/71; PULSE 65
[2023-04-08 17:14] LABS: Reflex Troponin-HS? (from REC) Y
[2023-04-08 18:59] LABS: Troponin-I HS 4 pg/mL (3.0-54.0)
[2023-04-08 19:34] VITALS: BP 119/78; PULSE 64; RESP 14; O2SAT 100
== END 2023-04-08 19:41 | disposition home or self-care (01) ==
PROVIDERS: Emergency Provider Emergency Medicine; PCP Internal Medicine; Visit Provider Emergency Medicine
DX: R55 Syncope and collapse (principal); I48.91 Unspecified atrial fibrillation; R00.2 Palpitations; K58.0 Irritable bowel syndrome with diarrhea; E86.0 Dehydration; K21.9 Gastro-esophageal reflux disease without esophagitis; D64.9 Anemia, unspecified; Z79.899 Other long term (current) drug therapy; Z79.01 Long term (current) use of anticoagulants; E87.1 Hypo-osmolality and hyponatremia; R19.7 Diarrhea, unspecified
CPT/HCPCS: 71045; 80048; 83880; 84484; 85025; 93005; 96360; 96361; 99283; J7030; A4216

== ENCOUNTER → 2023-04-11 | Outpatient (CLI) | payer MEDICARE, OTHER, SELFPAY ==
[2023-04-11 08:25] LABS: Hematocrit 34.4 % (37-47); Hemoglobin 12.1 g/dL (12.0-15.0); Mean Corp Hgb Conc 35.2 g/dL (32-36); Mean Corpuscular Hgb 32.6 pg (27.0-32.0); Mean Corpuscular Volume 92.7 fL (81-99); Platelet Count 230 K/mm3 (150-450); RBC Distribution Width CV 14.1 % (11.6-14.6); RBC Distribution Width SD 48.2 fl (35.1-43.9); Red Blood Count 3.71 M/mm3 (4.2-5.4); White Blood Count 3.2 K/mm3 (4.4-11.0)
[2023-04-11 09:06] LABS: ALB/GLOB Ratio 0.9 RATIO (0.9-2.4); AST(SGOT) 20 U/L (15-37); Alanine Aminotransfer ALT/SGPT 22 U/L (13-56); Alkaline Phosphatase 65 U/L (45-117); Anion Gap 3 (5-15); BUN 12 mg/dL (7-18); BUN/Creat Ratio 14.3 RATIO (10-20); Calcium,Total 8.1 mg/dL (8.5-10.1); Chloride 100 mmol/L (98-107); Creatinine, Serum 0.84 mg/dL (0.55-1.02); EST Glomerular Filtration Rate 69 mL/min (>60); Est Glom Filt Rate - Afr Amer 84 mL/min (>60); Globulin 3.5 g/dL (2.2-4.2); Glucose 87 mg/dL (74-106); Protein, Total 6.5 g/dL (6.4-8.2); Sodium Level 132 mmol/L (136-145); Thyroid Stim Hormone (TSH) 1.83 uIU/mL (0.358-3.74)
[2023-04-13 08:37] LABS: Vitamin B12 317 pg/mL (211-911)
[2023-04-15 07:08] LABS: Free Kappa Light Chains 38.5 mg/L (3.3-19.4); Free Lambda Light Chains 23.4 mg/L (5.7-26.3); Vitamin B1, Thiamine 86.7 nmol/L (66.5-200.0)
== END | disposition home or self-care (01) ==
LOC: LAB 07:57
PROVIDERS: PCP Internal Medicine; Visit Provider Psychiatry & Neurology Neurology
DX: C50.212 Malignant neoplasm of upper-inner quadrant of left female breast (principal); I48.0 Paroxysmal atrial fibrillation; Z17.0 Estrogen receptor positive status [ER+]; G62.9 Polyneuropathy, unspecified
CPT/HCPCS: 36415; 80053; 82607; 82746; 83883; 84425; 84443; 85027

== ENCOUNTER 2023-04-25 16:12 | Emergency (ER) | payer MEDICARE, OTHER, SELFPAY ==
[2023-04-25 16:13] VITALS: BP 213/99; PULSE 74; RESP 18; TEMP 36.2; O2SAT 98; BMI 18.3
[2023-04-25] MEDS: Ondansetron 4 MG/2 ML Vial IV (16:36)
[2023-04-25] MEDS: 0.9% Normal Saline 1,000 ML 999 ML IV (16:36)
--- NOTE | 2023-04-25 16:36 | EX.ED.GENINJ ---
HPI <RIGOBERTO Grant - Last Filed: 04/25/23 19:10> History of Present Illness Chief Complaint: Nausea/Vomiting Narrative Narrative: Patient presenting today due to vomiting that started this morning. She reports that she has vomited about 5 times. Yesterday she was out in the sun and was swimming and reports that she gets motion sickness very easily. She started to feel nauseous after swimming and that feeling persisted into today. She reports that she feels dehydrated. She denies feeling dizzy or lightheaded. She denies fever, chills, abdominal pain, hematemesis, diarrhea, and urinary symptoms. She last had a bowel movement this morning that was normal. 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) Chronic diarrhea Chronic hyponatremia Compression fracture of L1 lumbar vertebra COVID-19 Dehydration Diverticulitis Dysequilibrium GERD (gastroesophageal reflux disease) history of blood transfusion History of breast cancer IBS (irritable bowel syndrome) Intestinal disease, parasitic Lichen sclerosus Migraine Nonrheumatic mitral (valve) prolapse Osteopenia Osteopenia Osteopenia 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 Ovarian cyst Paroxysmal atrial fibrillation Paroxysmal atrial flutter Screening for breast cancer SIADH (syndrome of inappropriate ADH production) Syncope (07/13/19) Tachycardia Tendinitis of right shoulder TIA (transient ischemic attack) Vaginal dryness Weakness Home Medications denosumab 60 mg/mL subcutaneous syringe (Prolia) 60 mg subcut [id number] bone density 08/16/19 [History Last Taken Unknown] meclizine 12.5 mg tablet 12.5 mg PO TID PRN PRN Vertigo #20 tabs 11/14/19 [Rx Last Taken Unknown] Bilaterl knee high compression stockings (10-) #2 ea 05/29/22 [Rx Last Taken Unknown] clobetasol 0.05 % topical cream 1 applic topical .COMPLEX #15 grams 08/05/22 [Rx Last Taken Unknown] apixaban 5 mg tablet 5 mg PO BID #60 tabs 08/06/22 [Rx Last Taken Unknown] calcium carbonate 600 mg calcium (1,500 mg) tablet 600 mg PO DAILY 10/14/22 [History Last Taken Unknown] cholecalciferol (vitamin D3) 10 mcg (400 unit) capsule 2,000 unit PO DAILY supplement 10/14/22 [History Last Taken Unknown] dofetilide 250 mcg capsule 250 mcg PO Q12 afib #180 caps 10/17/22 [Rx Last Taken Unknown] esomeprazole magnesium 40 mg capsule,delayed release See Rx Instructions .Route .COMPLEX #90 caps 12/18/22 [Rx Last Taken Unknown] magnesium oxide 400 mg (241.3 mg magnesium) tablet 400 mg PO DAILY #90 tabs 01/19/23 [Rx Last Taken Unknown] metoprolol succinate 25 mg tablet,extended release 24 hr 25 mg PO .COMPLEX #135 tabs 01/28/23 [Rx Last Taken Unknown] fludrocortisone 0.1 mg tablet 0.05 mg (1/2 x 0.1 mg) .Route .COMPLEX #8 tabs 04/07/23 [Rx Last Taken Unknown] vibegron 75 mg tablet (Gemtesa) 75 mg PO DAILY 04/07/23 [History Last Taken Unknown] metoclopramide HCl 10 mg tablet (Reglan) 10 mg PO Q6H PRN nausea and vomiting 3 days #18 tabs 04/25/23 [Rx Last Taken Unknown] mirabegron 50 mg tablet,extended release 24 hr (Myrbetriq) 50 mg PO Q24H 04/25/23 [History Last Taken Unknown] Allergy/AdvReac Type Severity Reaction Status Date / Time cantaloupe Allergy Severe Anaphylaxis Verified 04/25/23 16:13 grass pollen Allergy Severe Unknown Verified 04/25/23 16:13 Penicillins Allergy Severe Anaphylaxis Verified 04/25/23 16:13 Sulfa (Sulfonamide Allergy Unknown Other Verified 04/25/23 16:13 Antibiotics) mold Allergy Unknown Verified 04/25/23 16:13 pollen extracts Allergy Unknown Verified 04/25/23 16:13 erythromycin base AdvReac Severe Unknown Verified 04/25/23 16:13 lansoprazole [From Prevacid] AdvReac Severe Nausea/Vom/ Verified 04/25/23 16:13 Diarrhea adhesive tape AdvReac Intermediate Rash Verified 04/25/23 16:13 Family History Father Unknown family medical history Mother Uterine cancer Thyroid disorder Kidney disease Hypertension CHF (congestive heart failure) Arthritis Surgical History H/O breast biopsy H/O left mastectomy H/O lymph node biopsy History of cataract surgery History of colonoscopy (05/2019) History of dilation and curettage History of esophagogastroduodenoscopy (EGD) (05/2019) History of left heart catheterization (09/2012) History of radiofrequency ablation (RFA) procedure for cardiac arrhythmia (08/2013) History of removal of ovarian cyst Social History Smoking Status: Never smoker alcohol intake: current alcohol intake frequency: holidays/special occasions only substance use type: does not use caffeine: Yes what type of physical activity do you participate in: walking and yoga frequency: 3-4 times per week seatbelt use: always do you feel safe at home: Yes additional social history: -Tony Patient and are both retired ROS <RIGOBERTO Grant - Last Filed: 04/25/23 19:10> ROS ED Constitutional Constitutional ED: Denies chills or fever(s) Cardiovascular Cardiovascular: Denies chest pain or palpitations Respiratory/Chest Respiratory/Chest: Denies cough or dyspnea Gastrointestinal Gastrointestinal: Reports nausea and vomiting; Denies abdominal pain, constipation or diarrhea Genitourinary Genitourinary ED: Denies dysuria, hematuria or urinary urgency Musculoskeletal Musculoskeletal: Denies arthralgias or myalgias Integumentary Denies rash Neurologic Neurologic: Denies headache(s) or weakness EXAM <RIGOBERTO Grant - Last Filed: 04/25/23 19:10> Physical Exam Const Vital Signs: 04/25/23 16:13 04/25/23 18:17 04/25/23 18:00 Temperature 97.1 F L Temperature Source Temporal Pulse Rate 74 82 Respiratory Rate 18 18 Blood Pressure 213/99 H 167/93 H 171/86 H Blood Pressure Mean 137 117 108 Pulse Ox 98 Oxygen Delivery Method Room Air Room Air Positive well nourished, well developed and no apparent distress General Appearance ED: well developed HEENT Reports normocephalic and head/scalp atraumatic Mouth ED: Yes moist mucous membranes normal Eyes PERRL and EOMs intact bilaterally Neck full ROM and supple Chest Wall inspection of chest normal Resp normal respiratory effort and clear to auscultation bilaterally Cardio regular rate and regular rhythm GI soft to palpation, non-tender, non-distended and no masses Back/Spine normal ROM and normal to inspection Extremity normal to inspection and full ROM Neuro oriented x3, CN's II-XII intact bilaterally, moves all extremities, no focal motor deficits and no sensory deficits noted Sensorium / Orientation: awake and alert Psych mental status grossly normal and thought process normal Skin no rashes or lesions noted and no wounds <Dr. Tejinder Mora MD - Last Filed: 04/25/23 19:17> Physical Exam Const Vital Signs: 04/25/23 16:13 04/25/23 18:17 04/25/23 18:00 Temperature 97.1 F L Temperature Source Temporal Pulse Rate 74 82 Respiratory Rate 18 18 Blood Pressure 213/99 H 167/93 H 171/86 H Blood Pressure Mean 137 117 108 Pulse Ox 98 Oxygen Delivery Method Room Air Room Air [facility] <RIGOBERTO Grant - Last Filed: 04/25/23 19:10> [facility] Narrative Medical decision making narrative: Patient presenting due to nausea and vomiting. She began to feel nauseous yesterday after swimming out in the heat and reports that she gets motion sickness very easily. Today she began vomiting and vomited about 5 times. She reports she feels dehydrated. BMP will be obtained to check for electrolyte abnormality, MAYANK she will be given IV fluids and Zofran. Initially patient's blood pressure was elevated but on repeat check it has gone down a little bit to 167/93. She reports that this is normal for her when she is in the emergency department. On repeat exam patient reports that she still feels nauseous and Zofran does not work well for her. She will be given IV Reglan. She has been given a p.o. challenge and was able to drink gayle arik and reported that her nausea has improved. She initially requested meclizine here but then reported that she has it at home that she can take instead. She will be given a prescription for Reglan and has been given return instructions. She will be discharged home in stable condition and is comfortable with plan. I have personally performed a face to face assessment of the patient and have reviewed the TERE Note. I performed a substantive portion of the visit including all aspects of the following. My friedman findings include: History is remarkable for nausea and vomiting x4 5 prior to arrival. Patient has history of breast cancer upper inner quadrant of the left breast. She had history of SIADH, TIA, she denies history of prior partial or complete small bowel obstruction. There is no history of volvulus. She states her last normal bowel movement was this morning. 1.5 weeks ago she had diarrhea. She denies ill contacts. She denies fever or chills. She does endorse thirst, dry mouth and lightheadedness with standing. She denies hematemesis. Exam is remarkable for dry tongue and mucosa. Heart is regular. Rate is normal. There is no murmur, gallop or rub. Abdomen is slightly tympanitic. Bowel sounds are diminished. There is no tenderness. There is no evidence of umbilical or inguinal hernia. Medical Decision Making in light of patient's past medical history will obtain BMP to assess electrolytes and specifically potassium and sodium as well as renal function and CO2/anion gap. IV fluids were ordered. Patient was ordered Zofran. When patient was reassessed at 1727 she had episode of emesis. Reglan has been ordered. Other additions or changes: [None] Lab Data Labs: Laboratory Results - last 24 hr 04/25/23 16:43 Sodium 128 L Potassium 3.6 Chloride 95 L Carbon Dioxide 25.0 Anion Gap 8 BUN 13 Creatinine 0.73 Estim Creat Clear Calc 37.09 Est GFR (MDRD) Af Amer 98 Est GFR (MDRD) Non-Af 81 BUN/Creatinine Ratio 17.8 Glucose 144 H Calcium 8.5 <Dr. Tejinder Mora MD - Last Filed: 04/25/23 19:17> [facility] Narrative Medical decision making narrative: Patient presenting due to nausea and vomiting. She began to feel nauseous yesterday after swimming out in the heat and reports that she gets motion sickness very easily. Today she began vomiting and vomited about 5 times. She reports she feels dehydrated. BMP will be obtained to check for electrolyte abnormality, MAYANK she will be given IV fluids and Zofran. Initially patient's blood pressure was elevated but on repeat check it has gone down a little bit to 167/93. She reports that this is normal for her when she is in the emergency department. On repeat exam patient reports that she still feels nauseous and Zofran does not work well for her. She will be given IV Reglan. She has been given a p.o. challenge and was able to drink gayle arik and reported that her nausea has improved. She initially requested meclizine here but then reported that she has it at home that she can take instead. She will be given a prescription for Reglan and has been given return instructions. She will be discharged home in stable condition and is comfortable with plan. I have personally performed a face to face assessment of the patient and have reviewed the TERE Note. I performed a substantive portion of the visit including all aspects of the following. My friedman findings include: History is remarkable for nausea and vomiting x4 5 prior to arrival. Patient has history of breast cancer upper inner quadrant of the left breast. She had history of SIADH, TIA, she denies history of prior partial or complete small bowel obstruction. There is no history of volvulus. She states her last normal bowel movement was this morning. 1.5 weeks ago she had diarrhea. She denies ill contacts. She denies fever or chills. She does endorse thirst, dry mouth and lightheadedness with standing. She denies hematemesis. Exam is remarkable for dry tongue and mucosa. Heart is regular. Rate is normal. There is no murmur, gallop or rub. Abdomen is slightly tympanitic. Bowel sounds are diminished. There is no tenderness. There is no evidence of umbilical or inguinal hernia. Medical Decision Making in light of patient's past medical history will obtain BMP to assess electrolytes and specifically potassium and sodium as well as renal function and CO2/anion gap. IV fluids were ordered. Patient was ordered Zofran. When patient was reassessed at 1727 she had episode of emesis. Reglan has been ordered. Other additions or changes: Patient did pass p.o. challenge after IV Reglan. Patient was discharged home. Lab Data Attestation: I reviewed the patient's lab results. Lab results narrative: Patient does have mild hyponatremia. It is not significant different from prior labs. Glucose is elevated 144 with a normal CO2 and anion gap. Labs: Laboratory Results - last 24 hr 04/25/23 16:43 Sodium 128 L Potassium 3.6 Chloride 95 L Carbon Dioxide 25.0 Anion Gap 8 BUN 13 Creatinine 0.73 Estim Creat Clear Calc 37.09 Est GFR (MDRD) Af Amer 98 Est GFR (MDRD) Non-Af 81 BUN/Creatinine Ratio 17.8 Glucose 144 H Calcium 8.5 Discharge Plan Triage Chief Complaint: Nausea/Vomiting ED Midlevel Provider: Cammie Barajas ED Provider: Tejinder Mora Dx/Rx/DC Orders Clinical Impression: History of breast cancer, Hyponatremia, Intractable vomiting with nausea Instructions: ED Vomiting (Adult) Prescriptions: New metoclopramide HCl [Reglan] 10 mg tablet 10 mg PO Q6H PRN (Reason: nausea and vomiting) 3 Days Qty: 18 0RF No Action Prolia 60 mg/mL syringe 60 mg SC [id number] (DME) Bilaterl knee high compression stockings (10-20) See Rx Instructions .Route .MEDSUPPLY Qty: 2 0RF Rx Instructions: As directed calcium carbonate 600 mg calcium (1,500 mg) tablet 600 mg PO DAILY magnesium oxide 400 mg (241.3 mg magnesium) tablet 400 mg PO DAILY Qty: 90 3RF Gemtesa 75 mg tablet 75 mg PO DAILY Patient Comments: take 1 tablet by mouth once daily fludrocortisone 0.1 mg tablet 0.05 mg .ROUTE .COMPLEX Qty: 8 5RF Rx Instructions: Take 1/2 tablet po every Thursday, Thursday and Thursday cholecalciferol (vitamin D3) 10 mcg (400 unit) capsule 2,000 unit PO DAILY meclizine 12.5 MG tablet 12.5 mg PO TID PRN PRN (Reason: Vertigo) Qty: 20 0RF Myrbetriq 50 mg tablet extended release 24 hr 50 mg PO Q24H Patient Comments: take 1 tablet by mouth once daily clobetasol 0.05 % cream 1 applic TOPICAL .COMPLEX Qty: 15 0RF Rx Instructions: 1 applic TOPICAL apply thin layer as directed bid X 2 weeks then daily X 2 weeks; apply thin layer; massage in to cover area apixaban 5 mg tablet 5 mg PO BID Qty: 60 11RF dofetilide 250 mcg capsule 250 mcg PO Q12 Qty: 180 3RF esomeprazole magnesium 40 mg capsule,delayed release(DR/EC) See Rx Instructions .ROUTE .COMPLEX Qty: 90 3RF Dose Instruction: take 1 capsule by mouth daily Rx Instructions: take 1 capsule by mouth daily metoprolol succinate 25 mg tablet extended release 24 hr 25 mg PO .COMPLEX Qty: 135 3RF Rx Instructions: 1/2 tablet (12.5 mg) in the morning and a whole tablet (25 mg) at bedtime Primary Care Provider: Rochelle Brandt Referrals: Rochelle Brandt MD [Primary Care Provider] - 3-5 Days Activity Restrictions/Additional Instructions: Please follow-up with your PCP and return for any worsening of your symptoms. Stay well-hydrated. Disposition Disposition: Home, Self Care
[2023-04-25 17:16] LABS: Anion Gap 8 (5-15); BUN 13 mg/dL (7-18); BUN/Creat Ratio 17.8 RATIO (10-20); Calcium,Total 8.5 mg/dL (8.5-10.1); Chloride 95 mmol/L (98-107); Creatinine, Serum 0.73 mg/dL (0.55-1.02); EST Glomerular Filtration Rate 81 mL/min (>60); Est Glom Filt Rate - Afr Amer 98 mL/min (>60); Estimated Creatinine Clearance 37.09 ml/min; Glucose 144 mg/dL (74-106); Potassium 3.6 mmol/L (3.5-5.1); Sodium Level 128 mmol/L (136-145)
[2023-04-25] MEDS: Metoclopramide 10 MG/2 ML Vial 5 MG IV (17:43)
[2023-04-25 18:00] VITALS: BP 171/86
[2023-04-25 18:17] VITALS: BP 167/93; PULSE 82; RESP 18
[2023-04-25 19:22] VITALS: BP 136/82; PULSE 86; RESP 16; O2SAT 98
== END 2023-04-25 19:23 | disposition home or self-care (01) ==
PROVIDERS: Physician Assistant; Emergency Provider Emergency Medicine; PCP Internal Medicine; Visit Provider Emergency Medicine
DX: R11.2 Nausea with vomiting, unspecified (principal); E87.1 Hypo-osmolality and hyponatremia; R42 Dizziness and giddiness; Z79.899 Other long term (current) drug therapy; Z85.3 Personal history of malignant neoplasm of breast; Z86.73 Personal history of transient ischemic attack (TIA), and cerebral infarction without residual deficits
CPT/HCPCS: 80048; 96361; 96374; 96375; 99282; J7030; A4216; J2405

== ENCOUNTER 2023-05-05 13:00 | Outpatient (RCR) | payer MEDICARE, OTHER, SELFPAY ==
--- NOTE | 2023-02-17 14:00 | HP.PTEVAL_ITS ---
Patient's Visit Information JULIANNA TUCKER is a 83 year old F referred to Physical Therapy by Dr. Pamela Orellana MD with a diagnosis of MIXED INCONTINENCE. Date of Evaluation: 02/17/23 Physical Therapist: Marquita Alfredo PT, Cert MDT - Visit Plan Frequency: 1x/Week Duration: 8-12 WKS Plan: PF THERAPY FOR STRENGTHENING, LENGTHENING/RELAXATION AND ENDURANCE TRAINING. PELVIC FLOOR STRENGTHENING. URINARY RETENTION, URGE AND FREQUENCY EDUCATION. HEALTHY BLADDER HABIT EDUCATION. TRAINING IN COORDINATION OF PELVIC FLOOR MUSCULATURE WITH HIP AND CORE (TRANSVERSE ABDOMINUS) MUSCULATURE. POSTURE CORRECTION/STRENGTHENING. CORE STRENGTHENING. NANCY LE ROM, STRETCHING AND S TRENGTHENING. TRAINING IN ABDOMINAL CAVITY PRESSURE MGMT WITH ADL'S. - Subjective Work/Leisure: RETIRED. Present symptoms: PATIENT STATES SHE ESPECIALLY HAS BLADDER LEAKING AT NIGHT. DURING THE DAY ALSO HAVING LEAKING. INFREQUENT URGE INCONTINENCE. Present since: ABOUT 4 TO 5 YEARS AGO. Pain Scale: NO BUT SOMETIMES FEELS PRESSURE. Is it getting better, worse or staying the same: GETTING BETTER. Commenced as a result of: NO APPARENT REASON. Worse: UNKNOWN. Better: MEDICATION AND DRINKING MORE WATER. Disturbed sleep: YES - CURRENTLY 1-2 TIMES A NIGHT SINCE STARTING THE MEDICATION. Previous history/Previous treatment: NONE. Treatment this episode: DIET RECOMMENDATIONS FROM DR. ORELLANA AND MEDICATION PRESCRIPTION STARTING ABOUT A MONTH AGO. Coughing/sneezing: UI SOMTIMES. Gait: NO AD'S. NO RECENT FALLS FOR ABOUT A YEAR. How long can you delay the need to urinate: 1 MINUTE TO 30 MINUTES. Prolapse (Falling out feeling): NO. Frequency of Urination: AT LEAST 7-8 TIMES. Ability to stop urine flow: ALMOST. Ability to initiate urine stream: SOMETIMES HARD TO GET STARTED. Bowel Incontinence: NO. Unexplained weight loss: NO - Objective Sitting/Standing Posture: SCOLIOSIS CONCAVE TO THE LEFT. LEFT ILIAC CREST HIGHER THAN RIGHT. REDUCED LUMBAR LORDOSIS. Other Observations: INDEP GAIT INTO PT WITH DECREASED CADANCE BUT NO LOB. INDEP TRANSFER SIT TO STAND WITHOUT UE ASSIST BUT DIFFICULT. Sensory deficit: NANCY LE LIGHT TOUCH SENSATION GROSSLY INTACT AND SYMETRICAL. ROM deficit: TIGHT NANCY LE HIP IR'S AND ER'S. TIGHT NANCY HIP ADDUCTORS. TIGHT HS'S AND VERY TIGHT NANCY GASTROC-SOLEUS COMPLEX'S. Motor deficit: NANCY LE STRENGTH GROSSLY 4/5. Dural Signs: NEGATIVE NANCY LE'S. Lumbar mvmt loss: flex - NIL. ext - AMY. R SG - MOD. L SG - MOD. Core strength: FAIR. PF STRENGTH: PATIENT COMMUNICATES ABILITY TO HOLD PF CONTRACTION X 10 SEC. NOT TESTED INTERNALLY. FUNCTIONAL SCREEN: Incontinence Impact Questionnaire Score: 10. Urogenital Distress Inventory Score: 14. TREATMENT: INTRO TO PF ANATOMY AND INITIATION OF HEP WITH QUICK FLICK KEGELS. - Goals Goal 1:: DECREASE URINARY LEAKAGE EPISODES TO ONE OR LESS PER DAY Goal Time Frame: 8-12 Weeks Goal 2:: PATIENT WILL SUCCESSFULLY DELAY VOIDING FOR AT LEAST 10 MINUTES WHEN URGENCY OCCURS Goal Time Frame: 6-8 Weeks Goal 3:: PATIENT WILL DEMONSTRATE/COMMUNICATE 10 CONSISTENT AND CONSECUTIVE 10 S ECOND PELVIC FLOOR MUSCLE CONTRACTIONS TO DEMONSTRATE IMPROVED PELVIC FLOOR ENDURANCE. Goal Time Frame: 8-12 Weeks Goal 4:: DEVELOP HEALTHY FLUID INTAKE HABITS WITH FLUID INTAKE OF ? BODY WEIGHT IN OUNCES PER DAY AND 2/3 BEING WATER. Goal Time Frame: 2-4 Weeks Goal 5:: NORMALIZE VOIDING FREQUENCEY TO EVERY 3-4 HOURS. Goal Time Frame: 4-6 Weeks Goal 6:: PATIENT WILL BE INDEP WITH A HEP/HOME INSTRUCTIONS FOR CONTINUED IMPROVEMENT ONCE FORMAL PHYSICAL THERAPY CONCLUDES. Goal Time Frame: 8-12 Weeks - Anticipated Interventions Patient/Client Instruction: Educate patient on: Condition, Plan of Care, Risk Factors For the Purpose of:: To improve self management Therapeutic Exercise to Include: Strength training, Endurance training, C oordination, Flexibilty training, Neuromotor development For the Purpose of:: To improve muscle performance and motor function, To increase tolerance to activity/condition/position, To improve ability of physical actions for home/community/work/leisure Thank you for the opportunity to evaluate your patient. For Medicare and Medicare HMO plans, please review the plan of care and approve it. It will need to be FAXED BACK to us at [phone] for Medicare purposes. For Medicare only, by signing this I certify the plan of care. Please let me know if there are questions or concerns regarding this plan of care. Physician Signature: Date:
--- NOTE | 2023-05-05 13:26 | HP.PTDCSUM ---
Discharge Summary D/C summary: It has been my pleasure to treat JULIANNA TUCKER referred by Dr. Pamela Orellana MD, with the diagnosis of MIXED INCONTINENCE for a total of 7 visit(s). Discharge Date: Please see the following information for a summary of their discharge status. Subjective Subjective: PATIENT REPORTS STOPPING GEMTESA A FEW DAYS AGO DUE TO diarrheas WHICH SHE FEELS WAS CONTRIBUTING TO HER DEHYDRATION AND DR. ORELLANA IS AWARE. SHE REPORTS DR. ORELLANA SUGGESTED ANOTHER MEDICATION BUT SHE WOULD LIKE TO HOLD OFF AND JUST TRY EX FOR AWHILE. REPORTS COMPLIANCE WITH HEP OFF AND ON ABLE HER OTHER HEALTH CONDITIONS ALLOW. Overall Improvement % Improvement: 75 Objective Objective/Function: PATIENT WAS SEEN TODAY FOR RE-ASSESSMENT OF PROGRESS TOWARD THE SET PT GOALS AND THE NEED FOR FURTHER PHYSICAL THERAPY VS READINESS FOR DISCHARGE. AT THIS POINT ALL PT GOALS APPEAR TO BE MET AND PATIENT IS WORKING ON HEP ABLE. WITH HEP CHECK TODAY PATIENT COMMUNICATES A GOOD UNDERSTANDING OF HOW TO DO THE EX'S AND ENJOYS THEM BUT HER OTHER HEALTH CONDITIONS JUST DON'T ALWAYS ALLOW HER TO DO THEM. SHE IS APPROPRIATE FOR D/C TO HEP AT THIS TIME ALONG WITH FOLLOW UP WITH DR. ORELLANA. PATIENT IS AGREEA BLE. FUNCTIONAL SCREEN: Incontinence Impact Questionnaire Score: 10. Urogenital Distress Inventory Score: 14. Goals Goal 1:: DECREASE URINARY LEAKAGE EPISODES TO ONE OR LESS PER DAY Goal Progress: Goal Met Goal 2:: PATIENT WILL SUCCESSFULLY DELAY VOIDING FOR AT LEAST 10 MINUTES WHEN URGENCY OCCURS Goal Progress: Goal Met Goal 3:: PATIENT WILL DEMONSTRATE/COMMUNICATE 10 CONSISTENT AND CONSECUTIVE 10 SECOND PELVIC FLOOR MUSCLE CONTRACTIONS TO DEMONSTRATE IMPROVED PELVIC FLOOR ENDURANCE. Goal Progress: Goal Met Goal 4:: DEVELOP HEALTHY FLUID INTAKE HABITS WITH FLUID INTAKE OF ? BODY WEIGHT IN OUNCES PER DAY AND 2/3 BEING WATER. Goal Progress: Goal Met Goal 5:: NORMALIZE VOIDING FREQUENCEY TO EVERY 3-4 HOURS. Goal Progress: Goal Met Goal 6:: PATIENT WILL BE INDEP WITH A HEP/HOME INSTRUCTIONS FOR CONTINUED IMPROVEMENT ONCE FORMAL PHYSICAL THERAPY CONCLUDES. Goal Progress: Goal Met Plan Plan: D/C D/C Information d/c sentence: If there are questions or concerns regarding this patient's physical therapy, please feel free to call me at [phone]. Thank you for the referral of this patient. Sincerely, Marquita Alfredo, PT, Cert MDT
== END 2023-05-05 19:00 | disposition home or self-care (01) ==
LOC: PT 13:00
PROVIDERS: PCP Internal Medicine; Referring Provider Urology; Visit Provider Urology
DX: N39.46 Mixed incontinence (principal)
CPT/HCPCS: 97162; 97164; 97530

== ENCOUNTER → 2023-05-20 | Outpatient (CLI) | payer MEDICARE, OTHER, SELFPAY ==
[2023-05-20 12:43] LABS: Anion Gap 6 (5-15); BUN 19 mg/dL (7-18); BUN/Creat Ratio 23.3 RATIO (10-20); Calcium,Total 8.4 mg/dL (8.5-10.1); Chloride 94 mmol/L (98-107); Creatinine, Serum 0.81 mg/dL (0.55-1.02); EST Glomerular Filtration Rate 72 mL/min (>60); Est Glom Filt Rate - Afr Amer 87 mL/min (>60); Glucose 82 mg/dL (74-106); Potassium 4.1 mmol/L (3.5-5.1); Sodium Level 126 mmol/L (136-145)
--- NOTE | 2023-05-20 14:12 | NEURO_ITS ---
NCS and/or EMG Patient Report Ordering Doctor: Erick Blanca DATE OF SERVICE: 05/20/23 Rosana presents with complaints of bilateral leg weakness and numbness for the past two to three years. Electrodiagnostic findings: Right peroneal motor nerve demonstrates normal distal normal amplitude and conduction velocity. Left peroneal motor nerve demonstrates normal distal latency with reduced amplitude and normal conduction velocity. Normal tibial motor response noted bilaterally. Normal tibial F- waves bilaterally. Normal right peroneal F-wave. Left peroneal F wave was not obtained. Prolonged H-reflex bilaterally. Prolonged sural latency is noted bilaterally. Prolonged right superficial peroneal rate and see. Absent left superficial peroneal latency. Needle EMG testing was performed in the lower limbs. All muscles tested showed no evidence of denervation with normal motor unit action potentials. No denervation noted in lumbar paraspinals. Electrodiagnostic assessment: This is an abnormal study in the lower limbs. 1. Electrodiagnostic findings suggestive of peripheral polyneuropathy, with pr imarily sensory nerve involvement. 2. 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 3. No electrodiagnostic evidence is noted for lumbosacral radiculopathy. 4. No electrodiagnostic evidence is noted for myopathy. Multi Select Codes Neurology Neurology Interp Codes: 31054-57 Musc test done w/n test comp (interp) (2) and 41110-61 Nrv cndj test 11-12 studies (interp)
== END | disposition home or self-care (01) ==
PROVIDERS: Internal Medicine Nephrology; PCP Internal Medicine; Referring Provider Psychiatry & Neurology Neurology; Visit Provider Psychiatry & Neurology Neurology
DX: E87.1 Hypo-osmolality and hyponatremia (principal); R20.0 Anesthesia of skin; G62.9 Polyneuropathy, unspecified; R26.9 Unspecified abnormalities of gait and mobility
CPT/HCPCS: 36415; 80048; 95886; 95912

== ENCOUNTER → 2023-05-21 | Outpatient (CLI) | payer MEDICARE, OTHER, SELFPAY ==
--- NOTE | 2023-05-21 13:44 | BI_ITS ---
MAMMOGRAPHY - UNILATERAL SCREENING: RIGHT BREAST REASON FOR EXAM: Female, 83 years old. Routine annual screening examination (unilateral). PERTINENT HISTORY: Personal history of breast cancer. Prior left mastectomy. Sister with breast cancer. TECHNIQUE: Digital unilateral breast nilton (3D mammographic acquisition) in the CC and MLO projections. 2-D mediolateral oblique (MLO) and craniocaudad (CC) views of both breasts were obtained. CAD: Full Field Digital Mammography with Computer Added Detection was performed. COMPARISON: Comparison is made with prior study dated May 14, 2022 and October 03, 2021. FINDINGS: Breast Composition: There are scattered areas of fibroglandular density. There are no dominant masses or suspicious calcifications. No other significant abnormalities are identified. There has been no significant change since the prior study. BI/SCREEN MAMM (CAD) W/NILTON UNI R IMPRESSION: Stable unilateral screening mammogram. Yearly follow-up mammogram recommended. (A) ASSESSMENT CATEGORY: BIRADS Category 1: Negative. A letter regarding these results will be sent to the patient by the facility within 30 days. Approximately 10% of breast cancers are not detected by mammography. A normal mammogram should not delay biopsy of a clinically suspicious abnormality. [id number] Electronically Signed: Edenilson Crisostomo MD at 15:16 EDT ,
== END | disposition home or self-care (01) ==
LOC: OPBI 13:43
PROVIDERS: PCP Internal Medicine; Referring Provider Nurse Practitioner Family; Visit Provider Nurse Practitioner Family
DX: Z12.31 Encounter for screening mammogram for malignant neoplasm of breast (principal); Z85.3 Personal history of malignant neoplasm of breast; Z90.12 Acquired absence of left breast and nipple; Z80.3 Family history of malignant neoplasm of breast
CPT/HCPCS: 77063; 77067

== ENCOUNTER → 2023-07-15 | Outpatient (CLI) | payer MEDICARE, OTHER, SELFPAY ==
[2023-07-15 10:02] LABS: Absolute Lymphocyte Count 1.49 X10^3/uL (0.83-4.51); Absolute Neutrophil Count 1.4 X10^3/uL (2.0-7.7); Basophil# 0.04 X10^3/uL; Basophil% 1.1 % (0-1); Eosinophils% 2.8 % (0-5); Hematocrit 36.5 % (37-47); Hemoglobin 12.3 g/dL (12.0-15.0); Lymphocyte # 1.49 X10^3/ul (0.83-4.51); Lymphocyte % 41.3 % (19-41); Mean Corp Hgb Conc 33.7 g/dL (32-36); Mean Corpuscular Hgb 31.3 pg (27.0-32.0); Mean Corpuscular Volume 92.9 fL (81-99); Mean Platelet Vol. 8.7 fl (6.2-12.0); Monocyte# 0.55 X10^3/uL; Monocyte% 15.2 % (0-10); NRBC Flagged by Analyzer 0 % (0-5); Neutrophil # 1.43 X10^3/uL (2.7-7.7); Neutrophil % 39.6 % (47-70); Platelet Count 240 K/mm3 (150-450); RBC Distribution Width CV 13.4 % (11.6-14.6); RBC Distribution Width SD 45.9 fl (35.1-43.9); Red Blood Count 3.93 M/mm3 (4.2-5.4); White Blood Count 3.6 K/mm3 (4.4-11.0)
[2023-07-15 11:30] LABS: Anion Gap 6 (5-15); BUN 15 mg/dL (7-18); BUN/Creat Ratio 16.4 RATIO (10-20); Calcium,Total 8.5 mg/dL (8.5-10.1); Chloride 97 mmol/L (98-107); Creatinine, Serum 0.92 mg/dL (0.55-1.02); EST Glomerular Filtration Rate 62 mL/min (>60); Est Glom Filt Rate - Afr Amer 76 mL/min (>60); Glucose 88 mg/dL (74-106); Potassium 4.4 mmol/L (3.5-5.1); Sodium Level 131 mmol/L (136-145)
== END | disposition home or self-care (01) ==
LOC: LAB 09:49
PROVIDERS: PCP Internal Medicine; Referring Provider Physician Assistant Medical; Visit Provider Physician Assistant Medical
DX: C50.212 Malignant neoplasm of upper-inner quadrant of left female breast (principal); I48.0 Paroxysmal atrial fibrillation; Z17.0 Estrogen receptor positive status [ER+]; I34.1 Nonrheumatic mitral (valve) prolapse; R07.9 Chest pain, unspecified; R53.83 Other fatigue
CPT/HCPCS: 36415; 80048; 85025

== ENCOUNTER 2023-07-23 09:10 | Emergency (ER) | payer MEDICARE, OTHER, SELFPAY ==
[2023-07-23 09:11] VITALS: BP 176/93; PULSE 75; RESP 16; TEMP 35.3; O2SAT 100
[2023-07-23 09:13] VITALS: BMI 19.0
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
[2023-07-23 09:49] LABS: Absolute Lymphocyte Count 1.23 X10^3/uL (0.83-4.51); Absolute Neutrophil Count 1.6 X10^3/uL (2.0-7.7); Basophil# 0.04 X10^3/uL; Basophil% 1.2 % (0-1); Eosinophil# 0.07 X10^3/uL; Hematocrit 35.6 % (37-47); Hemoglobin 11.7 g/dL (12.0-15.0); Lymphocyte # 1.23 X10^3/ul (0.83-4.51); Lymphocyte % 35.7 % (19-41); Mean Corp Hgb Conc 32.9 g/dL (32-36); Mean Corpuscular Hgb 30.5 pg (27.0-32.0); Mean Platelet Vol. 9.1 fl (6.2-12.0); Monocyte# 0.51 X10^3/uL; Monocyte% 14.8 % (0-10); NRBC Flagged by Analyzer 0 % (0-5); Neutrophil # 1.59 X10^3/uL (2.7-7.7); Platelet Count 233 K/mm3 (150-450); RBC Distribution Width CV 13.4 % (11.6-14.6); RBC Distribution Width SD 45.9 fl (35.1-43.9); Red Blood Count 3.83 M/mm3 (4.2-5.4); White Blood Count 3.5 K/mm3 (4.4-11.0)
[2023-07-23 09:59] LABS: Anion Gap 1 (5-15); BUN 15 mg/dL (7-18); BUN/Creat Ratio 17.3 RATIO (10-20); Calcium,Total 8.1 mg/dL (8.5-10.1); Chloride 99 mmol/L (98-107); Creatinine, Serum 0.87 mg/dL (0.55-1.02); EST Glomerular Filtration Rate 67 mL/min (>60); Est Glom Filt Rate - Afr Amer 81 mL/min (>60); Estimated Creatinine Clearance 44.03 ml/min; Glucose 95 mg/dL (74-106); Potassium 4.3 mmol/L (3.5-5.1); Sodium Level 130 mmol/L (136-145)
[2023-07-23] MEDS: Oxymetazoline 0.05% 1 SPRAY SPRAY.BTL 2 SPRAY NASAL (11:15)
[2023-07-23] MEDS: Lidocaine 4% 50 ML Bottle TOPICAL (11:15)
[2023-07-23 11:16] VITALS: BP 162/70; PULSE 61; RESP 16; TEMP 36.6
== END 2023-07-23 11:21 | disposition home or self-care (01) ==
PROVIDERS: Emergency Provider Emergency Medicine; PCP Internal Medicine; Visit Provider Emergency Medicine
DX: R04.0 Epistaxis (principal); I48.0 Paroxysmal atrial fibrillation; E87.1 Hypo-osmolality and hyponatremia; Z79.01 Long term (current) use of anticoagulants
CPT/HCPCS: 30901; 80048; 85025; 99283; A4216

== ENCOUNTER → 2023-08-11 | Outpatient (CLI) | payer MEDICARE, OTHER, SELFPAY ==
--- NOTE | 2023-08-11 06:51 | ECHOD_ITS ---
Reason For Study: CHEST PAIN Procedure This was a 2D Doppler, Color Flow transthoracic echocardiogram. Exam performed in department. Left Ventricle Normal LV size. Left ventricular systolic function is normal. The estimated ejection fraction is 60 %. No regional wall motion abnormalities noted. Right Ventricle Normal RV size. The right ventricle is normal in size, function, and thickness. Atria Normal left atrium. Normal right atrium. Mitral Valve Equivocal mitral valve prolapse. Trivial eccentric mitral valve insufficiency. Tricuspid Valve Normal tricuspid valve. Mild tricuspid valve insufficiency. Pulmonary artery systolic pressure is 24 mmHg. Aortic Valve Trisinus/trileaflet aortic valve. Pulmonic Valve Normal pulmonic valve. Great Vessels Normal aortic root. The pulmonary artery is normal size. Normal inferior vena cava. Pericardium/Pleural No pericardial effusion. MMode/2D Measurements & Calculations LVIDd: 4.3 cm IVSd: 0.72 cm Ao root diam: 2.4 cm LVIDs: 2.4 cm LVPWd: 0.75 cm RVDd: 2.3 cm FS: 43.6 % LAV(MOD-sp4): 51.8 ml EDV(MOD-sp4): 44.7 ml EDV(MOD-sp2): 41.5 ml ESV(MOD-sp4): 21.8 ml ESV(MOD-sp2): 17.4 ml EF(MOD-sp4): 51.3 % EF(MOD-sp2): 58.0 % SV(MOD-sp4): 22.9 ml SV(MOD-sp2): 24.1 ml LA A4 area: 18.0 cm2 LA dimension(2D): 3.2 cm RA A4 area: 9.8 cm2 TAPSE: 2.2 cm Time Measurements MV dec time: 0.16 sec Doppler Measurements & Calculations MV E max reece: 82.8 cm/sec Lat Peak E' Reece: 9.7 cm/sec Med Peak E' Reece: 8.2 cm/sec MV A max reece: 44.7 cm/sec E/E' lat: 8.5 E/E' med: 10.0 MV E/A: 1.9 MV P1/2t max reece: 98.5 cm/sec Ao V2 max: 105.5 cm/sec LV V1 max: 72.9 cm/sec MV P1/2t: 51.9 msec Ao max P.5 mmHg LV V1 max P.1 mmHg MV dec slope: 555.5 cm/sec2 Ao V2 mean: 74.7 cm/sec LV V1 mean P.2 mmHg MVA(P1/2t): 4.2 cm2 Ao mean P.5 mmHg LV V1 mean: 50.4 cm/sec Ao V2 VTI: 29.1 cm LV V1 VTI: 21.3 cm AV (velocity ratio): 0.73 MR max reece: 372.4 cm/sec PA V2 max: 63.7 cm/sec TR max reece: 230.0 cm/sec MR max P.6 mmHg PA V2 mean: 48.6 cm/sec TR max P.2 mmHg MR mean reece: 288.4 cm/sec MR mean P.6 mmHg MR VTI: 142.6 cm ECHO/Echo Complete Interpretation Summary Normal LV size. Left ventricular systolic function is normal. The estimated ejection fraction is 60 %. Equivocal mitral valve prolapse. Trivial eccentric mitral valve insufficiency. Pulmonary artery systolic pressure is 24 mmHg. Ordering Physician: Tanesha Britt Referring Physician: Rochelle Brandt Performed By: Viktoriya Lackey, KELLY, RVT
--- NOTE | 2023-08-12 08:34 | STRESSREP ---
Stress Test Report Exercise myocardial perfusion stress test. 83-year-old lady with a history of chest pain and fatigue Stress protocol: Resting EKG demonstrates normal sinus rhythm with a rate of 65 bpm resting blood pressure is 122/74 mmHg. The patient exercised according to the regular Steve protocol for a total duration of 4 minutes attaining a maximum heart rate of 136 bpm which was 97% of maximum predicted heart rate; the maximum workload was 7 metabolic equivalents. At rest there were no ST or T wave changes noted to suggest ischemia and at peak exercise upsloping ST changes only were noted which did not meet the criteria for ischemia. No clinical angina was noted the test was terminated due to the target heart rate being achieved/fatigue. The peak blood pressure was 122/74 mmHg. Rate-pressure product was 14,005. Myocardial perfusion protocol. 11.3 mCi of technetium 99m sestamibi was injected at rest. The patient exercised according to regular Steve protocol for total duration of 4 minutes and at peak exercise 36 mCi of technetium 99m sestamibi was injected stress images were obtained stress and rest images were reconstructed in comparing the short axis vertical long and horizontal long axis. Gated images were also obtained. Perfusion SPECT analysis: Review of the stress images demonstrate normal uptake of tracer noted in all areas of the myocardium. The resting images similarly demonstrate normal uptake of tracer noted in all areas of the myocardium. No areas of reversibility are noted to suggest ischemia no previous infarct was noted. Gated SPECT analysis: The gated ejection fraction is 70% plus. Conclusion: Normal exercise myocardial perfusion stress test at a moderate Preserved ejection fraction.
== END | disposition home or self-care (01) ==
LOC: CVS 06:49
PROVIDERS: PCP Internal Medicine; Referring Provider Physician Assistant Medical; Visit Provider Physician Assistant Medical
DX: I48.0 Paroxysmal atrial fibrillation (principal); I34.1 Nonrheumatic mitral (valve) prolapse; R07.9 Chest pain, unspecified; R53.83 Other fatigue
CPT/HCPCS: 78452; 93017; 93306; A9500; A4216

== ENCOUNTER 2023-08-29 11:48 | Emergency (ER) | payer MEDICARE, OTHER, SELFPAY ==
[2023-08-29 11:51] VITALS: BP 154/121; PULSE 78; RESP 18; TEMP 36.6; O2SAT 100
--- NOTE | 2023-08-29 12:37 | EKG12_ITS ---
Test Reason : Blood Pressure : / mmHG Vent. Rate : 068 BPM Atrial Rate : 068 BPM P-R Int : 222 ms QRS Dur : 104 ms QT Int : 448 ms P-R-T Axes : 095 052 071 degrees QTc Int : 476 ms Sinus rhythm with 1st degree A-V block Incomplete right bundle branch block Borderline ECG Confirmed by STEPHANIE THAO, JOSE ([id number]), purchasing expeditor AMAYA COVARRUBIAS ([id number]) on 08/31/2023 1:16:45 PM Referred By: Confirmed By:JOSE BROWN MD
--- NOTE | 2023-08-29 12:39 | EDS_ITS ---
HPI <RIGOBERTO Grant - Last Filed: 08/29/23 19:46> History of Present Illness Chief Complaint: Nausea/Vomiting Narrative Narrative: Patient presenting today due to nausea and vomiting that started 3 days ago. She reports that she has vomited once today but had multiple episodes of vomiting yesterday. She reports that this has happened in the past as she has a history of disequilibrium. She denies feeling lightheaded or dizzy. She reports that she last had a bowel movement yesterday that was normal for her, she is passing gas. Previous abdominal surgery includes appendectomy. She denies abdominal pain, chest pain, fever, chills, hematemesis, diarrhea, constipation, and urinary symptoms. 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) Chronic diarrhea Chronic hyponatremia Compression fracture of L1 lumbar vertebra COVID-19 Dehydration Diverticulitis Dysequilibrium Fatigue GERD (gastroesophageal reflux disease) history of blood transfusion History of breast cancer IBS (irritable bowel syndrome) Intestinal disease, parasitic Lichen sclerosus Migraine Nonrheumatic mitral (valve) prolapse Osteopenia Osteopenia Osteopenia 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 Ovarian cyst Paroxysmal atrial fibrillation Paroxysmal atrial flutter Screening for breast cancer SIADH (syndrome of inappropriate ADH production) Syncope (07/13/19) Tachycardia Tendinitis of right shoulder TIA (transient ischemic attack) Vaginal dryness Weakness Home Medications denosumab 60 mg/mL subcutaneous syringe (Prolia) 60 mg subcut [id number] bone density 08/16/19 [History Last Taken Unknown] meclizine 12.5 mg tablet 12.5 mg PO TID PRN PRN Vertigo #20 tabs 11/14/19 [Rx Last Taken Unknown] Bilaterl knee high compression stockings (10-20) #2 ea 05/29/22 [Rx Last Taken Unknown] clobetasol 0.05 % topical cream 1 applic topical .COMPLEX #15 grams 08/05/22 [Rx Last Taken Unknown] calcium carbonate 600 mg calcium (1,500 mg) tablet 600 mg PO DAILY 10/14/22 [History Last Taken Unknown] cholecalciferol (vitamin D3) 10 mcg (400 unit) capsule 2,000 unit PO DAILY supplement 10/14/22 [History Last Taken Unknown] dofetilide 250 mcg capsule 250 mcg PO Q12 afib #180 caps 10/17/22 [Rx Last Taken Unknown] esomeprazole magnesium 40 mg capsule,delayed release See Rx Instructions .Route .COMPLEX #90 caps 12/18/22 [Rx Last Taken Unknown] magnesium oxide 400 mg (241.3 mg magnesium) tablet 400 mg PO DAILY #90 tabs 01/19/23 [Rx Last Taken Unknown] metoprolol succinate 25 mg tablet,extended release 24 hr 25 mg PO .COMPLEX #135 tabs 01/28/23 [Rx Last Taken Unknown] fludrocortisone 0.1 mg tablet 0.05 mg (1/2 x 0.1 mg) .Route .COMPLEX #8 tabs 04/07/23 [Rx Last Taken Unknown] metoclopramide HCl 10 mg tablet (Reglan) 10 mg PO Q6H PRN nausea and vomiting 3 days #18 tabs 04/25/23 [Rx Last Taken Unknown] apixaban 5 mg tablet 5 mg PO BID #60 tabs 07/23/23 [Rx Last Taken Unknown] meclizine 25 mg tablet 25 mg PO TID PRN dizziness 3 days #9 tabs 08/29/23 [Rx Last Taken Unknown] Allergy/AdvReac Type Severity Reaction Status Date / Time cantaloupe Allergy Severe Anaphylaxis Verified 08/29/23 11:53 grass pollen Allergy Severe Unknown Verified 08/29/23 11:53 Penicillins Allergy Severe Anaphylaxis Verified 08/29/23 11:53 Sulfa (Sulfonamide Allergy Unknown Other Verified 08/29/23 11:53 Antibiotics) mold Allergy Unknown Verified 08/29/23 11:53 pollen extracts Allergy Unknown Verified 08/29/23 11:53 erythromycin base AdvReac Severe Unknown Verified 08/29/23 11:53 lansoprazole [From Prevacid] AdvReac Severe Nausea/Vom/ Verified 08/29/23 11:53 Diarrhea adhesive tape AdvReac Intermediate Rash Verified 08/29/23 11:53 Family History Father Unknown family medical history Mother Uterine cancer Thyroid disorder Kidney disease Hypertension CHF (congestive heart failure) Arthritis Surgical History H/O breast biopsy H/O left mastectomy H/O lymph node biopsy History of cataract surgery History of colonoscopy (05/2019) History of dilation and curettage History of esophagogastroduodenoscopy (EGD) (05/2019) History of left heart catheterization (09/2012) History of radiofrequency ablation (RFA) procedure for cardiac arrhythmia (08/2013) History of removal of ovarian cyst Social History Smoking Status: Never smoker alcohol intake: current alcohol intake frequency: holidays/special occasions only substance use type: does not use caffeine: Yes what type of physical activity do you participate in: walking and yoga frequency: 3-4 times per week seatbelt use: always do you feel safe at home: Yes additional social history: -Tony Patient and are both retired ROS <RIGOBERTO Grant - Last Filed: 08/29/23 19:46> ROS ED Constitutional Constitutional ED: Denies chills or fever(s) Cardiovascular Cardiovascular: Denies chest pain Respiratory/Chest Respiratory/Chest: Denies cough or dyspnea Gastrointestinal Gastrointestinal: Reports nausea and vomiting; Denies abdominal pain, constipation, diarrhea or melena Genitourinary Genitourinary ED: Denies dysuria, hematuria or urinary frequency Musculoskeletal Musculoskeletal: Denies arthralgias or myalgias Integumentary Denies rash Neurologic Neurologic: Denies weakness EXAM <RIGOBERTO Grant - Last Filed: 08/29/23 19:46> Physical Exam Const Vital Signs: 08/29/23 11:51 Temperature 98 F Temperature Source Temporal Pulse Rate 78 Respiratory Rate 18 Blood Pressure 154/121 H Blood Pressure Mean 132 Pulse Ox 100 Oxygen Delivery Method Room Air Positive well nourished, well developed and no apparent distress General Appearance ED: well developed HEENT Reports normocephalic and head/scalp atraumatic Mouth ED: Yes moist mucous membranes normal Eyes PERRL and EOMs intact bilaterally Neck full ROM and supple Chest Wall inspection of chest normal Resp normal respiratory effort and clear to auscultation bilaterally Cardio regular rate and regular rhythm GI soft to palpation, non-tender, non-distended and no masses Back/Spine normal ROM and normal to inspection Extremity normal to inspection and full ROM Neuro oriented x3, CN's II-XII intact bilaterally, moves all extremities, no focal motor deficits and no sensory deficits noted Sensorium / Orientation: awake and alert Psych mental status grossly normal and thought process normal Skin no rashes or lesions noted and no wounds <Dr. Jatinder Fan MD - Last Filed: 08/29/23 17:00> Physical Exam Const Vital Signs: 08/29/23 11:51 Temperature 98 F Temperature Source Temporal Pulse Rate 78 Respiratory Rate 18 Blood Pressure 154/121 H Blood Pressure Mean 132 Pulse Ox 100 Oxygen Delivery Method Room Air MDM <RIGOBERTO Grant - Last Filed: 08/29/23 19:46> [facility] Narrative Medical decision making narrative: Patient presenting due to nausea and vomiting she has had for the past 3 days. She has had 1 episode of vomiting today. She reports that this has happened in the past and she required IV fluids, Zofran, and Reglan. She does have a prescription for Reglan which she just found today but has not tried taking any. She denies having any abdominal pain, her abdomen is soft and nontender on exam. Last bowel movement was yesterday and is passing gas, low suspicion for bowel obstruction. She denies chest pain, but troponin and EKG will be obtained to rule out atypical presentation of ACS. She will be given IV fluids and Zofran. On reexamination patient reports that she is still feeling slightly nauseous, she was given IV Reglan. Patient consistent with previous labs. WBC consistent with previous labs. She was given Tylenol for her headache. Patient did do well with a p.o. challenge, on reexamination she reports improvement of her symptoms and would like to go home. After being observed she did not have any additional vomiting. She will be discharged home, she does have a prescription for Reglan. She did ask for a meclizine prescription as she has ran out of hers. This will be given to her. She will be discharged home in stable condition, she is to follow-up with PCP. Lab Data Labs: Laboratory Results - last 24 hr 08/29/23 12:14 WBC 4.0 L RBC 3.97 L Hgb 12.0 Hct 36.1 L MCV 90.9 MCH 30.2 MCHC 33.2 RDW Std Deviation 44.8 H RDW Coeff of Idania 13.2 Plt Count 289 MPV 9.5 Immature Gran % (Auto) 0.300 Neut % (Auto) 45.1 L Lymph % (Auto) 38.3 [place] % (Auto) 14.3 H Eos % (Auto) 1.0 Baso % (Auto) 1.0 Absolute Neuts (auto) 1.8 L Absolute Lymphs (auto) 1.53 Nucleated RBC % 0 Sodium 131 L Potassium 3.5 Chloride 96 L Carbon Dioxide 28.0 Anion Gap 7 BUN 13 Creatinine 0.80 Est GFR (MDRD) Af Amer 89 Est GFR (MDRD) Non-Af 73 BUN/Creatinine Ratio 16.3 Glucose 134 H Calcium 8.2 L Total Bilirubin 0.90 AST 21 ALT 22 Alkaline Phosphatase 59 Troponin I High Sens 4 Total Protein 6.8 Albumin 3.2 Globulin 3.6 Albumin/Globulin Ratio 0.9 EKG Initial EKG: Comments: 60 bpm, sinus rhythm with first-degree AV block, incomplete right bundle branch block, no ST elevation, reviewed and interpreted by attending ED physician <Dr. Jatinder Fan MD - Last Filed: 08/29/23 17:00> [facility] Lab Data Attestation: I reviewed the patient's lab results. Labs: Laboratory Results - last 24 hr 08/29/23 12:14 WBC 4.0 L RBC 3.97 L Hgb 12.0 Hct 36.1 L MCV 90.9 MCH 30.2 MCHC 33.2 RDW Std Deviation 44.8 H RDW Coeff of Idania 13.2 Plt Count 289 MPV 9.5 Immature Gran % (Auto) 0.300 Neut % (Auto) 45.1 L Lymph % (Auto) 38.3 [place] % (Auto) 14.3 H Eos % (Auto) 1.0 Baso % (Auto) 1.0 Absolute Neuts (auto) 1.8 L Absolute Lymphs (auto) 1.53 Nucleated RBC % 0 Sodium 131 L Potassium 3.5 Chloride 96 L Carbon Dioxide 28.0 Anion Gap 7 BUN 13 Creatinine 0.80 Est GFR (MDRD) Af Amer 89 Est GFR (MDRD) Non-Af 73 BUN/Creatinine Ratio 16.3 Glucose 134 H Calcium 8.2 L Total Bilirubin 0.90 AST 21 ALT 22 Alkaline Phosphatase 59 Troponin I High Sens 4 Total Protein 6.8 Albumin 3.2 Globulin 3.6 Albumin/Globulin Ratio 0.9 Treatment and Re-Evaluation Comments:: I have personally performed a face to face assessment of the patient and have reviewed the TERE Note. I performed a substantive portion of the visit including all aspects of the following. My friedman findings include: History is painless vomiting for the last 2-3 days. States she has had recurrent episodes of this in the past, oftentimes seems to be caused by hyponatremia, she was diagnosed with SIADH in the past and if she does not drink a lot of fluids sometimes she gets low sodium which has caused this vomiting in the past. Exam is abdomen soft nontender nondistended. Well-appearing no acute distress. Heart regular, lungs clear. Medical Decison Making no advanced imaging of the abdomen/pelvis indicated at this time given her lack of abdominal pain and the fact that her abdomen is benign. Will obtain EKG and troponin in addition to labs to look at her sodium and other electrolytes and renal function, while treating her symptoms and going from there. On reevaluation after fluids and medications she is doing much better and tolerating oral fluids and is comfortable going home, her sodium and other electrolytes are noted, and nothing out of balance to the point where she requires any admission. Advised to encourage fluids and follow-up. Other additions or changes: [None] Discharge Plan Triage Chief Complaint: Nausea/Vomiting ED Midlevel Provider: Cammie Barajas ED Provider: Jatinder Fan Dx/Rx/DC Orders Clinical Impression: Nausea & vomiting Instructions: ED Vomiting (Adult) Prescriptions: New meclizine 25 mg tablet 25 mg PO TID PRN (Reason: dizziness) 3 Days Qty: 9 0RF No Action Prolia 60 mg/mL syringe 60 mg SC [id number] (DME) Bilaterl knee high compression stockings (10-20) See Rx Instructions .Route .MEDSUPPLY Qty: 2 0RF Rx Instructions: As directed calcium carbonate 600 mg calcium (1,500 mg) tablet 600 mg PO DAILY magnesium oxide 400 mg (241.3 mg magnesium) tablet 400 mg PO DAILY Qty: 90 3RF fludrocortisone 0.1 mg tablet 0.05 mg .ROUTE .COMPLEX Qty: 8 5RF Rx Instructions: Take 1/2 tablet po every Thursday, Thursday and Thursday cholecalciferol (vitamin D3) 10 mcg (400 unit) capsule 2,000 unit PO DAILY meclizine 12.5 MG tablet 12.5 mg PO TID PRN PRN (Reason: Vertigo) Qty: 20 0RF metoclopramide HCl [Reglan] 10 mg tablet 10 mg PO Q6H PRN (Reason: nausea and vomiting) 3 Days Qty: 18 0RF clobetasol 0.05 % cream 1 applic TOPICAL .COMPLEX Qty: 15 0RF Rx Instructions: 1 applic TOPICAL apply thin layer as directed bid X 2 weeks then daily X 2 weeks; apply thin layer; massage in to cover area dofetilide 250 mcg capsule 250 mcg PO Q12 Qty: 180 3RF esomeprazole magnesium 40 mg capsule,delayed release(DR/EC) See Rx Instructions .ROUTE .COMPLEX Qty: 90 3RF Dose Instruction: take 1 capsule by mouth daily Rx Instructions: take 1 capsule by mouth daily metoprolol succinate 25 mg tablet extended release 24 hr 25 mg PO .COMPLEX Qty: 135 3RF Rx Instructions: 1/2 tablet (12.5 mg) in the morning and a whole tablet (25 mg) at bedtime apixaban 5 mg tablet 5 mg PO BID Qty: 60 11RF Primary Care Provider: Rochelle Brandt Referrals: Rochelle Brandt MD [Primary Care Provider] - 5-7 Days Stan Mullins DO [Med Staff - Active Staff] - As Needed Activity Restrictions/Additional Instructions: Please follow-up with your PCP. Stay well-hydrated, return for any worsening of your symptoms. Disposition Disposition: Home, Self Care Discharge Date/Time: 08/29/23 15:43
[2023-08-29 12:41] LABS: Absolute Lymphocyte Count 1.53 X10^3/uL (0.83-4.51); Absolute Neutrophil Count 1.8 X10^3/uL (2.0-7.7); Basophil# 0.04 X10^3/uL; Eosinophil# 0.04 X10^3/uL; Hematocrit 36.1 % (37-47); Lymphocyte # 1.53 X10^3/ul (0.83-4.51); Lymphocyte % 38.3 % (19-41); Mean Corp Hgb Conc 33.2 g/dL (32-36); Mean Corpuscular Hgb 30.2 pg (27.0-32.0); Mean Corpuscular Volume 90.9 fL (81-99); Mean Platelet Vol. 9.5 fl (6.2-12.0); Monocyte# 0.57 X10^3/uL; Monocyte% 14.3 % (0-10); NRBC Flagged by Analyzer 0 % (0-5); Neutrophil # 1.81 X10^3/uL (2.7-7.7); Neutrophil % 45.1 % (47-70); Platelet Count 289 K/mm3 (150-450); RBC Distribution Width CV 13.2 % (11.6-14.6); RBC Distribution Width SD 44.8 fl (35.1-43.9); Red Blood Count 3.97 M/mm3 (4.2-5.4)
[2023-08-29] MEDS: Ondansetron 4 MG/2 ML Vial IV (12:44)
[2023-08-29] MEDS: 0.9% Normal Saline (1000mL) 1,000 ML 1000 ML IV (12:44)
[2023-08-29 12:48] LABS: Anion Gap 7 (5-15); BUN 13 mg/dL (7-18); BUN/Creat Ratio 16.3 RATIO (10-20); Calcium,Total 8.2 mg/dL (8.5-10.1); Chloride 96 mmol/L (98-107); EST Glomerular Filtration Rate 73 mL/min (>60); Est Glom Filt Rate - Afr Amer 89 mL/min (>60); Glucose 134 mg/dL (74-106); Potassium 3.5 mmol/L (3.5-5.1); Sodium Level 131 mmol/L (136-145)
[2023-08-29 13:12] LABS: ALB/GLOB Ratio 0.9 RATIO (0.9-2.4); AST(SGOT) 21 U/L (15-37); Alanine Aminotransfer ALT/SGPT 22 U/L (13-56); Albumin, Serum 3.2 g/dL (3.2-5.0); Alkaline Phosphatase 59 U/L (45-117); Globulin 3.6 g/dL (2.2-4.2); Protein, Total 6.8 g/dL (6.4-8.2)
[2023-08-29 13:22] LABS: Troponin-I HS 4 pg/mL (3.0-54.0)
[2023-08-29] MEDS: Acetaminophen 325 MG Tablet 650 MG PO (14:26)
[2023-08-29] MEDS: Metoclopramide 10 MG/2 ML Vial 5 MG IV (14:52)
== END 2023-08-29 15:43 | disposition home or self-care (01) ==
PROVIDERS: Physician Assistant; Emergency Provider Emergency Medicine; PCP Internal Medicine; Visit Provider Emergency Medicine
DX: R11.2 Nausea with vomiting, unspecified (principal); E22.2 Syndrome of inappropriate secretion of antidiuretic hormone; Z90.49 Acquired absence of other specified parts of digestive tract
CPT/HCPCS: 80053; 84484; 85025; 93005; 96361; 96374; 96375; 99282; J7030; A4216; J2405

== ENCOUNTER → 2023-09-23 | Outpatient (CLI) | payer MEDICARE, OTHER, SELFPAY ==
[2023-09-25 12:09] LABS: Albumin 3.2 g/dL (2.9-4.4); Alpha-1-Globulins 0.3 g/dL (0.0-0.4); Alpha-2-Globulins 0.7 g/dL (0.4-1.0); Gamma Globulin 1.1 g/dL (0.4-1.8); Immunoglobulin A 247 mg/dL (64-422); Immunoglobulin G 989 mg/dL (586-1602); Immunoglobulin M 170 mg/dL (26-217); PROEL- TOTAL PROTEIN 6.2 g/dL (6.0-8.5)
== END | disposition home or self-care (01) ==
LOC: LAB 08:11
PROVIDERS: PCP Internal Medicine; Referring Provider Psychiatry & Neurology Neurology; Visit Provider Psychiatry & Neurology Neurology
DX: G62.9 Polyneuropathy, unspecified (principal)
CPT/HCPCS: 36415; 82784; 84165; 86334; 86335

== ENCOUNTER → 2023-10-05 | Outpatient (CLI) | payer MEDICARE, OTHER, SELFPAY ==
--- NOTE | 2023-10-05 10:59 | US_ITS ---
STUDY: ULTRASOUND BREAST - RIGHT REASON FOR EXAM: Female, 83 years old. Intermittent upper inner quadrant right breast pain. History of prior left mastectomy. TECHNIQUE: Axial and longitudinal images of the RIGHT breast were performed with a high resolution ultrasound transducer. # OF IMAGES: 40 COMPARISON: Comparison is made with prior ultrasound of the right breast dated October 03, 2021. FINDINGS: RIGHT Breast: The upper inner quadrant of the right breast was examined with ultrasound. Mild degree of retroareolar ductal dilatation. There is a 2 mm x 2 mm x 1 mm calcified nodule at the 12:00 position of the breast at 3 cm from the nipple. US/Breast Limited Unilateral IMPRESSION: Calcified breast nodule as described. ASSESSMENT CATEGORY: BIRADS Category 2: Benign. A letter regarding these results will be sent to the patient by the facility within 30 days. Electronically Signed: Edenilson Crisostomo MD at 12:02 EST ,
--- OUTSIDE RECORDS SUMMARY | 2023-10-05 12:35 | XMS RPT_ITS | CCD ---
Author Name Unknown Address [address] [facility] [address] [place] [address] Organization [facility] Care Team Providers Care Rug Setter [place] Name Role Phone Roof MOLD PREPARER, Handy Sullivan Unavailable RON GARCÍA Unavailable Unavailable JONATHAN LLOYD Unavailable Unavailable GANTA, MAURICE C Unavailable Unavailable GANTA, MAURICE C Unavailable Unavailable Ganta , Maurice Primary Care Provider Karly THAO Maurice Primary Care Provider [phone] Karly THAO Maurice Primary Care Provider JATINDER WARREN Attending Unavailable GANTA, MAURICE Primary Care Unavailable HALLE SAMPSON Attending Unavailable GANTA, MAURICE Primary Care Unavailable TESTSOL CHUN Attending Unavailable GANTA, MAURICE Primary Care Unavailable JATINDER WARREN Referring Unavailable GANTA, MAURICE Primary Care Unavailable TESTRASOL FAY Referring Unavailable GANTA, MAURICE Primary Care Unavailable GANTA, MAURICE Primary Care Unavailable JOSE RANGEL Attending Unavailable GANTA, MAURICE Primary Care Unavailable JULIO DOWNEY Attending Unavailable GANTA, MAURICE Primary Care Unavailable GANTA, MAURICE Primary Care Unavailable OLDER, MANISHA Referring Unavailable GANTA, MAURICE Primary Care Unavailable OLDER, MANISHA Referring Unavailable GANTA, MAURICE Attending Unavailable GANTA, MAURICE Referring Unavailable GANTA, MAURICE Primary Care Unavailable KNOBLE JULIO Referring Unavailable GANTA, MAURICE Primary Care Unavailable KNOBLE, JULIO Referring Unavailable GANTA, MAURICE Primary Care Unavailable KNOBLE JULIO Referring Unavailable GANTA, MAURICE Primary Care Unavailable OLDER, MANISHA Attending Unavailable GANTA, MAURICE Primary Care Unavailable OLDER, MANISHA Referring Unavailable GANTA, MAURICE Primary Care Unavailable OLDER, MANISHA Attending Unavailable GANTA, MAURICE Primary Care Unavailable OLDER, MANISHA Referring Unavailable JATINDER WARREN Attending Unavailable [facility] Unavailable MAGGI ALDANA Attending Unavailable [facility] Unavailable Allergies Allergy Classification Reported Allergen(s) Allergy Type Date of Onset Reaction(s) Facility (3 sources) Adhesive Tape; Translations: [ADHESIVE TAPE] allergy to substance 7 Unknown [facility] Work Phone: [phone] (20 sources) bee pollen; Translations: [POLLEN] allergy to substance 5 unknown [facility] Work Phone: [phone] (20 sources) cantaloupe allergenic extract; Translations: [CANTALOUPE] Drug Allergy 5 unknown [facility] Work Phone: [phone] (20 sources) erythromycin; Translations: [ERYTHROMYCIN] Drug Allergy 5 GI Upset [facility] Work Phone: [phone] (20 sources) Grass pollen; Translations: [GRASS POLLEN] drug allergy 5 unknown [facility] Work Phone: [phone] (3 sources) lansoprazole Drug Allergy 7 unknown [facility] Work Phone: [phone] (20 sources) mold extract; Translations: [MOLD] Drug Allergy 5 unknown [facility] Work Phone: [phone] (3 sources) penicillin Drug Allergy 1 Inside of mouth swelled [facility] Work Phone: [phone] (3 sources) Sulfonamides (Antibiotic) drug allergy 7 unknown [facility] Work Phone: [phone] (20 sources) Adhesive Tape; Translations: [ADHESIVE TAPE (ROSINS)] Allergy to substance 4 Rash [facility] Work Phone: [phone] (20 sources) lansoprazole; Translations: [LANSOPRAZOLE] Drug Allergy 4 Diarrhea [facility] Work Phone: (6 sources) Penicillins; Translations: [PENICILLINS] Propensity to adverse reactions 5 Rash, Swelling [facility] Work Phone: (20 sources) Sulfonamides (Antibiotic); Translations: [SULFA (SULFONAMIDE ANTIBIOTICS)] Propensity to adverse reactions 5 [facility] Work Phone: (20 sources) Penicillins Propensity to adverse reactions 5 Rash, Swelling [facility] Work Phone: (6 sources) Vibegron; Translations: [VIBEGRON] Drug Intolerance 3 Diarrhea [facility] Work Phone: Medications Current Medications Medication Drug Class(es) Dates Sig (Normalized) Sig (Original) molnupiravir 200 mg capsule (2 sources) Start: 09-05-2022 End: 09-10-2022 take 4 capsules by mouth twice daily molnupiravir 200 mg capsule Indications: Acute COVID-19 Take 4 capsules by mouth twice daily for 5 days. 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; Translations: [Malignant neoplasm of upper-inner quadrant of female breast] Onset: 7 04-24-2017 Chronic Cardiac dysrhythmias (20 sources) Atrial flutter; Translations: [Paroxysmal atrial fibrillation] Onset: 1 12-19-2010 Chronic Delirium, dementia, and amnestic and other cognitive disorders (20 sources) Mild cognitive disorder ; 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] Onset: 1 11-27-2020 Chronic Esophageal disorders (20 sources) Gastroesophageal reflux disease; Translations: [Gastro-esophageal reflux disease without esophagitis] 03-13-2012 Chronic Fluid and electrolyte disorders (20 sources) Hyponatremia; Translations: [Hypo-osmolality and hyponatremia] Onset: 1 03-13-2012 Episodic Genitourinary symptoms and ill-defined conditions (1 source) Urinary incontinence; Translations: [Unspecified urinary incontinence] Chronic Genitourinary symptoms and ill-defined conditions (1 source) Increased frequency of urination; Translations: [Frequency of micturition] Episodic Heart valve disorders (20 sources) Mitral valve prolapse; Translations: [Nonrheumatic mitral (valve) prolapse] Onset: 1 12-19-2010 Chronic Immunizations and screening for infectious disease (2 sources) Contact with or exposure to other viral diseases; Translations: [Exposure to COVID-19 virus] Episodic Malaise and fatigue (20 sources) Chronic fatigue syndrome; Translations: [Chronic fatigue, unspecified] Onset: 1 09-09-2021 Chronic Malaise and fatigue (7 sources) Fatigue; Translations: [Other fatigue] Onset: 5 02-12-2015 Episodic Mood disorders (1 source) Recurrent major depression in partial remission; Translations: [Major depressive disorder, recurrent, in partial remission] Chronic Nausea and vomiting (2 sources) Nausea; Translations: [Nausea] Episodic Nutritional deficiencies (19 sources) Deficiency of macronutrients; Translations: [Unspecified protein-calorie malnutrition] Onset: 3 Chronic Nutritional deficiencies (1 source) Iron deficiency; Translations: [Iron deficiency] Onset: 3 Episodic Open wounds of extremities (1 source) Laceration of right index finger; Translations: [Laceration without foreign body of right index finger without damage to nail, initial encounter] Episodic Osteoarthritis (20 sources) Osteoarthritis; Translations: [Osteoarthrosis, unspecified whether generalized or localized, lower leg] 03-13-2012 Chronic Other acquired deformities (1 source) Acquired valgus deformity of right knee; Translations: [Valgus deformity, not elsewhere classified, right knee] Episodic Other aftercare (2 sources) Patient encounter status; Translations: [Other usp (current) drug therapy] Episodic Other aftercare (1 source) Removal of sutures done; Translations: [Encounter for removal of sutures] Episodic Other aftercare (1 source) Other extermination inspector (current) drug therapy; Translations: [Medication management] Onset: 3 Episodic Other circulatory disease (1 source) Abnormal peripheral pulse; Translations: [Other specified symptoms and signs involving the circulatory and respiratory systems] Episodic Other connective tissue disease (1 source) Swelling of right lower limb; Translations: [Other specified soft tissue disorders] Episodic Other endocrine disorders (20 sources) Syndrome of inappropriate vasopressin secretion; 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] Onset: 8 03-09-2018 Chronic Other gastrointestinal disorders (20 sources) Irritable bowel syndrome; Translations: [Irritable bowel syndrome without diarrhea] 03-13-2012 Chronic Other gastrointestinal disorders (20 sources) Constipation; Translations: [Constipation, unspecified] 03-13-2012 Episodic Other gastrointestinal disorders (3 sources) Diarrhea; Translations: [Diarrhea, unspecified] 04-16-2023 Episodic Other nervous system disorders (1 source) Other chronic pain; Translations: [Chronic pain of right knee] Onset: 9 Chronic Other non-traumatic joint disorders (20 sources) Pain in right knee; Translations: [Pain in joint, lower leg] Onset: 9 10-06-2018 Episodic Residual codes; unclassified (2 sources) Pain; Translations: [Pain, unspecified] Episodic Syncope (1 source) Syncope and collapse; Translations: [Syncope and collapse] 04-08-2023 Episodic Unclassified (9 sources) Electrocardiogram abnormal; Translations: [Thyroid function tests abnormal] Onset: 1 Resolved: 6 12-19-2010 Episodic Unclassified (9 sources) Long-term drug therapy; Translations: [Long-term (current) use of other medications] Onset: 3 Resolved: 5 05-16-2015 Unclassified (3 sources) Radiofrequency ablation operation for arrhythmia ; Translations: [Other specified postprocedural states] Onset: 6 01-17-2016 Unclassified (1 source) Genetic Risk Assessment / 699() Onset: 8 Unclassified (1 source) Malignant neoplasm of unspecified site of left female breast (HCC) / C50.912(ICD-10) Onset: 8 Unclassified (1 source) APPOINTMENT CANCELLED 04-20-2023 Viral infection (2 sources) COVID-19; Translations: [Other specified viral infection] Episodic Past or Other Problems Problem Classification Problem Date Documented Da te Episodic/Chronic Cardiac dysrhythmias (20 sources) Palpitations; Translations: [Palpitations] Onset: 02-23-2009 Resolved: 02-06-2016 02-06-2016 Episodic Conditions associated with dizziness or vertigo (20 sources) Dizziness; Translations: [Dizziness and giddiness] Onset: 03-08-2013 Episodic Mycoses (2 sources) Onychomycosis; Translations: [Tinea unguium] Onset: 01-29-2023 Episodic Nonspecific chest pain (6 sources) Chest pain, unspecified; Translations: [Chest pain, unspecified] Onset: 12-19-2010 Resolved: 01-17-2016 12-19-2010 Episodic Other aftercare (3 sources) Surgical follow-up; Translations: [Encounter for other specified surgical aftercare] Onset: 04-24-2017 04-24-2017 Episodic Other aftercare (20 sources) Post-discharge follow-up; Translations: [Encounter for follow-up examination after completed treatment for conditions other than malignant neoplasm] Onset: 11-18-2019 11-18-2019 Episodic Other bone disease and musculoskeletal deformities (20 sources) Osteopenia; Translations: [Other specified disorders of bone density and structure, unspecified site] Onset: 12-20-2015 09-09-2021 Episodic Other circulatory disease (1 source) Other specified symptoms and signs involving the circulatory and respiratory systems; Translations: [Diminished pulses in lower extremity] Onset: 01-29-2023 Episodic Other fractures (20 sources) Closed fracture lumbar vertebra; Translations: [Unspecified fracture of unspecified lumbar vertebra, initial encounter for closed fracture] Onset: 10-18-2012 09-09-2021 Episodic Other gastrointestinal disorders (1 source) Diarrhea, unspecified; Translations: [Diarrhea, unspecified type] Onset: 04-16-2023 Episodic Other lower respiratory disease (3 sources) Dyspnea; Translations: [Shortness of breath] Onset: 09-13-2012 09-13-2012 Episodic Other non-traumatic joint disorders (20 sources) Pain in lower limb; Translations: [Pain in unspecified knee] Onset: 04-27-2014 04-27-2014 Episodic Other non-traumatic joint disorders (20 sources) Chronic pain of right upper limb; Translations: [Pain in right shoulder] Onset: 11-11-2016 11-11-2016 Episodic Other skin disorders (3 sources) Mass of axilla; Translations: [Localized swelling, mass and lump, unspecified] Onset: 05-28-2017 05-28-2017 Episodic Residual codes; unclassified (20 sources) Insomnia; Translations: [Insomnia, unspecified] Onset: 02-11-2011 03-13-2012 Episodic Spondylosis; intervertebral disc disorders; other back problems (20 sources) Lumbago with sciatica; Translations: [Lumbago with sciatica, right side] Onset: 07-24-2015 07-24-2015 Episodic Unclassified (6 sources) FH: Hypertension; Translations: [Estrogen receptor positive status [ER+]] Onset: 04-24-2017 07-20-2014 Episodic Unclassified (1 source) Genetic Risk Assessment; Translations: [Genetic Risk Assessment] Onset: 10-29-2017 Unclassified (1 source) Malignant neoplasm of unspecified site of left female breast (HCC); Translations: [Malignant neoplasm of unspecified site of left female breast (HCC)] Onset: 09-22-2017 Results Test Name Value Interpretation Reference Range Facil ity Vital Signs Date Time Vital Sign Value Performing Clinician Facility 07-09-2023 12:59-0400 Body weight 54.43 kg TERRITORY SALES CONSULTANT.TECHNICAL SERVICES COORDINATOR Work Phone: [facility] 07-09-2023 12:59-0400 Diastolic blood pressure 80 mm[Hg] TERRITORY SALES CONSULTANT.TECHNICAL SERVICES COORDINATOR Work Phone: [facility] 07-09-2023 12:59-0400 Heart rate 62 /min Manisha Older TERRITORY SALES CONSULTANT.TECHNICAL SERVICES COORDINATOR Work Phone: [facility] 07-09-2023 12:59-0400 Respiratory rate 16 /min Older TERRITORY SALES CONSULTANT.TECHNICAL SERVICES COORDINATOR Work Phone: [facility] 07-09-2023 12:59-0400 SaO2% (BldA) [Mass fraction] 99 % TERRITORY SALES CONSULTANT.TECHNICAL SERVICES COORDINATOR Work Phone: [facility] 07-09-2023 12:59-0400 Systolic blood pressure 130 mm[Hg] Manisha Older TERRITORY SALES CONSULTANT.TECHNICAL SERVICES COORDINATOR Work Phone: [facility] 05-08-2023 08:00-0400 Body temperature 97.39 [degF] Manisha Older TERRITORY SALES CONSULTANT.TECHNICAL SERVICES COORDINATOR Work Phone: [facility] 05-08-2023 08:00-0400 Body weight 52.62 kg Manisha Older TERRITORY SALES CONSULTANT.TECHNICAL SERVICES COORDINATOR Work Phone: [facility] 05-08-2023 08:00-0400 Diastolic blood pressure 80 mm[Hg] Manisha Older TERRITORY SALES CONSULTANT.TECHNICAL SERVICES COORDINATOR Work Phone: [facility] 05-08-2023 08:00-0400 Heart rate 60 /min Manisha Older TERRITORY SALES CONSULTANT.TECHNICAL SERVICES COORDINATOR Work Phone: [facility] 05-08-2023 08:00-0400 Respiratory rate 16 /min Manisha Older TERRITORY SALES CONSULTANT.TECHNICAL SERVICES COORDINATOR Work Phone: [facility] 05-08-2023 08:00-0400 Systolic blood pressure 128 mm[Hg] Manisha Older TERRITORY SALES CONSULTANT.TECHNICAL SERVICES COORDINATOR Work Phone: [facility] 04-16-2023 07:19-0400 Diastolic blood pressure 82 mm[Hg] Jose Rangel TERRITORY SALES CONSULTANT.DOBIE MAN Work Phone: [facility] 04-16-2023 07:19-0400 Systolic blood pressure 138 mm[Hg] Jose Rangel TERRITORY SALES CONSULTANT.DOBIE MAN Work Phone: [facility] 04-16-2023 07:13-0400 Body temperature 96.01 [degF] Jose Rangel TERRITORY SALES CONSULTANT.DOBIE MAN Work Phone: [facility] 04-16-2023 07:13-0400 Body weight 53.52 kg Jose Rangel TERRITORY SALES CONSULTANT.DOBIE MAN Work Phone: [facility] 04-16-2023 07:13-0400 Heart rate 66 /min Jose Rangel TERRITORY SALES CONSULTANT.DOBIE MAN Work Phone: [facility] 04-16-2023 07:13-0400 Respiratory rate 18 /min Jose Rangel TERRITORY SALES CONSULTANT.DOBIE MAN Work Phone: [facility] 04-16-2023 07:13-0400 SaO2% (BldA) [Mass fraction] 99 % Jose Rangel APRN.CNS Work Phone: [facility] 11-14-2022 08:33-0500 Body height 170.2 cm Maurice Hackett MD Work Phone: [facility] 11-14-2022 08:33-0500 Body temperature 96.01 [degF] Maurice Hackett MD Work Phone: [facility] 11-14-2022 08:33-0500 Body weight 51.71 kg Maurice Hackett MD Work Phone: [facility] 11-14-2022 08:33-0500 Diastolic blood pressure 62 mm[Hg] Maurice Hackett MD Work Phone: [facility] 11-14-2022 08:33-0500 Heart rate 64 /min Maurice Hackett MD Work Phone: [facility] 11-14-2022 08:33-0500 Respiratory rate 12 /min Maurice Hackett MD Work Phone: [facility] 11-14-2022 08:33-0500 SaO2% (BldA) [Mass fraction] 100 % Maurice Hackett MD Work Phone: [facility] 11-14-2022 08:33-0500 Systolic blood pressure 122 mm[Hg] Maurice Hackett MD Work Phone: [facility] 09-05-2022 17:40-0500 Body temperature 98.4 [degF] Ron García MD Work Phone: [facility] 09-05-2022 17:40-0500 Body weight 53.43 kg Ron García MD Work Phone: [facility] 09-05-2022 17:40-0500 Diastolic blood pressure 82 mm[Hg] Ron García MD Work Phone: [facility] 09-05-2022 17:40-0500 Heart rate 70 /min Ron García MD Work Phone: [facility] 09-05-2022 17:40-0500 Respiratory rate 18 /min Ron García MD Work Phone: [facility] 09-05-2022 17:40-0500 SaO2% (BldA) [Mass fraction] 99 % Ron García MD Work Phone: [facility] 09-05-2022 17:40-0500 Systolic blood pressure 138 mm[Hg] Ron García MD Work Phone: [facility] 08-19-2022 08:52-0500 Body temperature 97.59 [degF] Lori Patel APRN.TECHNICAL SERVICES COORDINATOR Work Phone: [facility] 08-19-2022 08:52-0500 Body weight 52.34 kg Lori Patel APRN.TECHNICAL SERVICES COORDINATOR Work Phone: [facility] 08-19-2022 08:52-0500 Diastolic blood pressure 84 mm[Hg] Lori Patel APRN.TECHNICAL SERVICES COORDINATOR Work Phone: [facility] 08-19-2022 08:52-0500 Heart rate 74 /min Lori Patel APRN.TECHNICAL SERVICES COORDINATOR Work Phone: [facility] 08-19-2022 08:52-0500 Respiratory rate 18 /min Lori Patel APRN.TECHNICAL SERVICES COORDINATOR Work Phone: [facility] 08-19-2022 08:52-0500 SaO2% (BldA) [Mass fraction] 99 % Lori Patel APRN.TECHNICAL SERVICES COORDINATOR Work Phone: [facility] 08-19-2022 08:52-0500 Systolic blood pressure 144 mm[Hg] Lori Patel APRN.TECHNICAL SERVICES COORDINATOR Work Phone: [facility] 07-11-2022 11:25-0400 Body temperature 97.5 [degF] Justine Irizarry PA-C Work Phone: [facility] 07-11-2022 11:25-0400 Body weight 55.07 kg Justine Irizarry PA-C Work Phone: [facility] 07-11-2022 11:25-0400 Diastolic blood pressure 82 mm[Hg] Justine Athy PA-C Work Phone: [facility] 07-11-2022 11:25-0400 Heart rate 68 /min Justine Athy PA-C Work Phone: [facility] 07-11-2022 11:25-0400 Respiratory rate 18 /min Justine Athy PA-C Work Phone: [facility] 07-11-2022 11:25-0400 SaO2% (BldA) [Mass fraction] 100 % Justine Athy PA-C Work Phone: [facility] 07-11-2022 11:25-0400 Systolic blood pressure 132 mm[Hg] Justine Athy PA-C Work Phone: [facility] 07-07-2022 10:05-0400 Body temperature 97.81 [degF] Sfoía Bogner PA-C Work Phone: [facility] 07-07-2022 10:05-0400 Body weight 53.98 kg Sofía Bogner PA-C Work Phone: [facility] 07-07-2022 10:05-0400 Diastolic blood pressure 68 mm[Hg] Sofía Bogner PA-C Work Phone: [facility] 07-07-2022 10:05-0400 Heart rate 66 /min Sofía Bogner PA-C Work Phone: [facility] 07-07-2022 10:05-0400 Respiratory rate 16 /min Sofía Bogner PA-C Work Phone: [facility] 07-07-2022 10:05-0400 SaO2% (BldA) [Mass fraction] 100 % Sofía Bogner PA-C Work Phone: [facility] 07-07-2022 10:05-0400 Systolic blood pressure 122 mm[Hg] Sofía Bogner PA-C Work Phone: [facility] 05-16-2022 08:47-0400 Body height 170.2 cm Maurice Hackett MD Work Phone: [facility] 05-16-2022 08:47-0400 Body temperature 96.8 [degF] Maurice Hackett MD Work Phone: [facility] 05-16-2022 08:47-0400 Body weight 53.52 kg Maurice Hackett MD Work Phone: [facility] 05-16-2022 08:47-0400 Diastolic blood pressure 70 mm[Hg] Maurice Hackett MD Work Phone: [facility] 05-16-2022 08:47-0400 Heart rate 62 /min Maurice Hackett MD Work Phone: [facility] 05-16-2022 08:47-0400 Respiratory rate 12 /min Maurice Hackett MD Work Phone: [facility] 05-16-2022 08:47-0400 SaO2% (BldA) [Mass fraction] 99 % Maurice Hackett MD Work Phone: [facility] 05-16-2022 08:47-0400 Systolic blood pressure 110 mm[Hg] Maurice Hackett MD Work Phone: [facility] 04-21-2022 15:33-0400 Body height 170.2 cm Jessy Pina PA-C Work Phone: [facility] 04-21-2022 15:33-0400 Body weight 53.07 kg Jessy Pina PA-C Work Phone: [facility] 02-07-2022 10:14-0400 Body temperature 97.59 [degF] Alice Jenkins APRN.TECHNICAL SERVICES COORDINATOR Work Phone: [facility] 02-07-2022 10:14-0400 Body weight 54.7 kg Alice Jenkins APRN.TECHNICAL SERVICES COORDINATOR Work Phone: [facility] 02-07-2022 10:14-0400 Diastolic blood pressure 70 mm[Hg] Alice Gregory TERRITORY SALES CONSULTANT.TECHNICAL SERVICES COORDINATOR Work Phone: [facility] 02-07-2022 10:14-0400 Heart rate 60 /min Alice Jenkins TERRITORY SALES CONSULTANT.TECHNICAL SERVICES COORDINATOR Work Phone: [facility] 02-07-2022 10:14-0400 Respiratory rate 16 /min Alice Jenkins TERRITORY SALES CONSULTANT.TECHNICAL SERVICES COORDINATOR Work Phone: [facility] 02-07-2022 10:14-0400 SaO2% (BldA) [Mass fraction] 100 % Alice Gregory TERRITORY SALES CONSULTANT.TECHNICAL SERVICES COORDINATOR Work Phone: [facility] 02-07-2022 10:14-0400 Systolic blood pressure 126 mm[Hg] Alice Jenkins TERRITORY SALES CONSULTANT.TECHNICAL SERVICES COORDINATOR Work Phone: [facility] 08-03-2017 12:08-0500 BMI (Body Mass Index) 18.27 kg/m2 Handy Russell MOLD PREPARER [facility] Work Phone: 08-03-2017 12:08-0500 BP Diastolic 80 mm[Hg] Handy Yvonne MOLD PREPARER [facility] Work Phone: 08-03-2017 12:08-0500 BP Systolic 128 mm[Hg] Handy Russell MOLD PREPARER [facility] Work Phone: 08-03-2017 12:08-0500 Height 171.45 cm Handy Russell MOLD PREPARER [facility] Work Phone: 08-03-2017 12:08-0500 Pulse (Heart Rate) 66 /min Handy Russell MOLD PREPARER [facility] Work Phone: 08-03-2017 12:08-0500 Weight 53.71 kg Handy Russell MOLD PREPARER [facility] Work Phone: 06-03-2017 14:42-0400 Body Temperature 97.7 [degF] Handy Russell MOLD PREPARER [facility] Work Phone: 06-03-2017 14:42-0400 Height 171.45 cm Handy Russell MOLD PREPARER [facility] Work Phone: 06-03-2017 14:42-0400 Respiratory Rate 20 /min Handy Russell MOLD PREPARER [facility] Work Phone: 06-03-2017 14:42-0400 Weight 52.07 kg Handy Russell NP [facility] Work Phone: 11-05-2016 14:41-0500 BSA (Body Surface Area) 1.63 m2 Handy Russell NP [facility] Work Phone: 10-16-2015 14:27-0500 BP Diastolic 44 mm[Hg] Handy Russell NP [facility] Work Phone: 10-16-2015 14:27-0500 BP Systolic 88 mm[Hg] Handy Russell NP [facility] Work Phone: 10-16-2015 14:27-0500 Pulse (Heart Rate) 64 /min Handy Russell NP [facility] Work Phone: Encounters Encounter Date Encounter Type Care Provider Facility Start: 09-01-2023 End: 09-02-2023 ambulatory MAURICE HACKETT Facility:[facility] Start: 08-24-2023 End: 08-24-2023 ambulatory JATINDER WARREN Facility:[facility] Start: 08-17-2023 End: 08-17-2023 ambulatory MAGGI ALDANA Facility:[facility] Start: 08-17-2023 End: 08-17-2023 Patient encounter procedure Maggi Aldana PA-C Work Phone: Orthopaedics Procedures Date Procedure Procedure Detail Performing Clinician Start: 08-17-2023 Arthrocentesis aspir &/inj major jt/bursa w/o us Maggi Aldana PA-C Work Phone: Start: 08-10-2023 Arthrocentesis aspir &/inj major jt/bursa w/o us Jatinder Warren MD Work Phone: Start: 07-09-2023 INFLUENZA VACCINE, P RSV FREE, AGE 65+ YR, HIGH DOSE, QUADRIVALENT (FLUZONE HIGH-DOSE) Manisha Nichole APRN.CNP Work Phone: Start: 09-05-2022 2019 CORONAVIRUS Ron García MD Work Phone: Start: 08-19-2022 Urnls dip stick/tabl et rgnt auto w/o microscopy Justine Irizarry PA-C Work Phone: Start: 08-11-2022 Arthrocentesis aspir &/inj major jt/bursa w/o us Maggi Vetovitz PA-C Work Phone: Start: 08-04-2022 Arthrocentesis aspir &/inj major jt/bursa w/o us Maggi Vetovitz PA-C Work Phone: Start: 07-28-2022 Arthrocentesis aspir &/inj major jt/bursa w/o us Maggi Vetovitz PA-C Work Phone: Start: 04-21-2022 Arthrocentesis aspir &/inj major jt/bursa w/o us Jessy Pina PA-C Work Phone: Start: 04-21-2022 Radiologic exam knee complete 4/more views Jessy Pina PA-C Work Phone: Start: 08-03-2017 End: 08-04-2017 *BMP Handy Russell MOLD PREPARER Work Phone: Start: 08-03-2017 End: 08-03-2017 Ecg routine ecg w/least 12 lds w/i&r Handy Russell MOLD PREPARER Work Phone: Start: 08-03-2017 End: 08-04-2017 Magnesium [Mass/volume] in Serum or Plasma Handy Russell MOLD PREPARER Work Phone: Start: 06-09-2017 End: 06-11-2017 Bx/exc lymph node open superficial Carlos Sheth MD Work Phone: Start: 11-05-2016 End: 11-05-2016 PERFORATOR LOADER Brian Cooley MD Start: 11-05-2016 End: 11-05-2016 Follow Up Appt 6 months Ele Pierre Start: 08-26-2016 End: 08-26-2016 ARPAN Cooley MD Start: 08-26-2016 End: 08-26-2016 Follow Up Appt 6 months Ele Pierre Start: 02-22-2016 End: 02-22-2016 ARPAN Cooley MD Start: 02-22-2016 End: 02-22-2016 Follow Up Appt 6 months Ele Pierre Start: 01-28-2016 End: 02-08-2016 *Hepatic Function Panel Ele Pierre Start: 01-28-2016 End: 02-08-2016 Lipid 1996 panel - Serum or Plasma Brian Cooley MD Start: 10-16-2015 End: 10-16-2015 ARPAN Cooley MD Start: 10-16-2015 End: 10-16-2015 Follow Up Appt 3 months Ele Pierre Start: 08-30-2015 End: 09-11-2015 24 hour holter monitor Brian Cooley MD Start: 08-30-2015 End: 08-30-2015 ARPAN Cooley MD Start: 08-30-2015 End: 08-30-2015 Follow Up Appt 6 weeks Brian Cooley MD Start: 06-28-2015 End: 09-11-2015 *BMP Tanesha Britt PA-C Work Phone: Start: 06-28-2015 End: 06-29-2015 Documentation of current medications Tanesha Britt PA-C Work Phone: Start: 06-28-2015 End: 06-28-2015 Follow Up Appt Other Tanesha ventura PA-C Work Phone: Start: 06-28-2015 End: 09-11-2015 Magnesium [Mass/volume] in Serum or Plasma Tanesha Britt PA-C Work Phone: Start: 05-16-2015 End: 05-16-2015 PERFORATOR LOADER Tanesha Britt PA-C Work Phone: Start: 05-16-2015 End: 05-17-2015 Documentation of current medications Tanesha Britt PA-C Work Phone: Start: 05-16-2015 End: 05-16-2015 Follow Up Appt 3 months Tanesha gu PA-C Work Phone: Start: 02-12-2015 End: 02-13-2015 Documentation of current medications Tanesha Britt PA-C Work Phone: Start: 02-12-2015 End: 02-12-2015 Follow Up Appt 2 months Tanesha gu PA-C Work Phone: Start: 02-12-2015 End: 02-12-2015 Follow Up Appt Other Tanesha ventura PA-C Work Phone: Start: 02-12-2015 End: 02-12-2015 MMM Tanesha Britt PA-C Work Phone: Start: 02-12-2015 End: 03-12-2015 Nuclear stress test -exercise Tanesha Britt PA-C Work Phone: Start: 02-12-2015 End: 09-11-2015 Xtrnl mobile cv telemetry w/i&report 30 days Tanesha Britt PA-C Work Phone: Start: 01-16-2015 End: 01-25-2015 *CRAIG Cooley MD Start: 01-16-2015 End: 01-16-2015 ARPAN Cooley MD Start: 01-16-2015 End: 01-17-2015 Documentation of current medications Brian Cooley MD Start: 01-16-2015 End: 01-16-2015 Follow Up Appt 6 months Ele Pierre Start: 01-16-2015 End: 01-25-2015 Lipid 1996 panel - Serum or Plasma Brian Cooley MD Start: 01-16-2015 End: 01-25-2015 Magnesium [Mass/volume] in Serum or Plasma Brian Cooley MD Start: 07-20-2014 End: 07-25-2014 *CRAIG Cooley MD Start: 07-20-2014 End: 07-20-2014 ARPAN Cooley MD Start: 07-20-2014 End: 07-20-2014 Ecg routine ecg w/least 12 lds w/i&r Brian Cooley MD Start: 07-20-2014 End: 07-20-2014 Follow Up Appt 6 months Ele Pierre Start: 07-20-2014 End: 07-25-2014 Magnesium [Mass/volume] in Serum or Plasma Brian Cooley MD Start: 01-12-2014 End: 06-28-2015 *BMP Brian Cooley MD Start: 01-12-2014 End: 01-12-2014 *Hepatic Function Panel Ele Pierre Start: 01-12-2014 End: 01-12-2014 ARPAN Cooley MD Start: 01-12-2014 End: 01-12-2014 Ecg routine ecg w/least 12 lds w/i&r Brian Cooley MD Start: 01-12-2014 End: 01-12-2014 Follow Up Appt 6 months Ele Pirere Start: 01-12-2014 End: 06-28-2015 Magnesium [Mass/volume] in Serum or Plasma Brian Cooley MD Start: 10-10-2013 End: 07-25-2014 *BMP Tanesha Britt PA-C Work Phone: Start: 10-10-2013 End: 07-25-2014 *CBC with Differential Tanesha rodriguez PA-C Work Phone: Start: 10-10-2013 End: 10-10-2013 Admit Tanesha Britt PA-C Work Phone: Start: 10-10-2013 End: 07-25-2014 Ecg routine ecg w/least 12 lds w/i&r Tanesha Britt PA-C Work Phone: Start: 10-10-2013 End: 07-25-2014 Follow Up Appt Other Tanesha ventura PA-C Work Phone: Start: 10-10-2013 End: 07-25-2014 INR in Platelet poor plasma by Coagulation assay Tanesha Britt PA-C Work Phone: Start: 10-10-2013 End: 07-25-2014 Magnesium [Mass/volume] in Serum or Plasma Tanesha Britt PA-C Work Phone: Start: 09-28-2013 End: 09-28-2013 PERFORATOR LOADER Brian Cooley MD Start: 09-28-2013 End: 07-25-2014 Ecg routine ecg w/least 12 lds w/i&r Brian Cooley MD Start: 09-28-2013 End: 07-25-2014 Echocardiography Brian Cooley MD Start: 09-28-2013 End: 09-28-2013 Follow Up Appt 2 months Ele Pierre Start: 08-08-2013 End: 08-09-2013 *BMP Brian Cooley MD Start: 08-08-2013 End: 08-09-2013 *CBC with Differential Brian Cooley MD Start: 08-08-2013 End: 07-25-2014 PERFORATOR LOADER Brian Cooley MD Start: 08-08-2013 End: 08-08-2013 Ecg routine ecg w/least 12 lds w/i&r Brian Cooley MD Start: 08-08-2013 End: 07-25-2014 Follow Up Appt 6 weeks Brian Cooley MD Start: 08-08-2013 End: 08-09-2013 Magnesium [Mass/volume] in Serum or Plasma Brian Cooley MD Start: 08-08-2013 End: 08-09-2013 Natriuretic peptide B [Mass/volume] in Blood Brian Cooley MD Start: 07-21-2013 End: 07-22-2013 INR in Platelet poor plasma by Coagulation assay Brian Cooley MD Start: 07-21-2013 End: 07-21-2013 Nurse, Teaching, Wound Check (no charge) Brian Cooley MD Start: 06-29-2013 End: 07-21-2013 24 hour holter monitor Brian Cooley MD Start: 06-29-2013 End: 06-29-2013 Ecg routine ecg w/least 12 lds w/i&r Brian Cooley MD Start: 03-22-2013 End: 03-22-2013 Follow Up Appt 6 months Ele Pierre Start: 03-22-2013 End: 03-22-2013 MMM Brian Cooley MD Start: 03-02-2013 End: 03-02-2013 Follow Up Appt Other Tanesha ventura PA-C Work Phone: Start: 03-02-2013 End: 03-07-2013 Nuclear stress test -exercise Tanesha Britt PA-C Work Phone: Start: 11-17-2012 End: 11-17-2012 PERFORATOR LOADER Brian Cooley MD Start: 11-17-2012 End: 11-17-2012 Follow Up Appt 4 months Ele Pierre Start: 10-12-2012 End: 10-14-2012 24 hour holter monitor Brian Cooley MD Start: 09-20-2012 End: 09-22-2012 Left Heart Cath Brian Cooley MD Start: 09-16-2012 End: 09-22-2012 *BMP Brian Cooley MD Start: 09-16-2012 End: 09-22-2012 CBC W Auto Differential panel - Blood Brian Cooley MD Start: 09-16-2012 End: 09-22-2012 Chest x-ray Brian Cooley MD Start: 09-16-2012 End: 09-16-2012 Ecg routine ecg w/least 12 lds w/i&r Brian Cooley MD Start: 09-16-2012 End: 09-22-2012 INR in Platelet poor plasma by Coagulation assay Brian Cooley MD Start: 09-16-2012 End: 09-16-2012 Nurse Teaching (no charge) Brian Cooley MD Start: 09-13-2012 End: 09-22-2012 24 hour holter monitor Brian Cooley MD Start: 09-13-2012 End: 09-15-2012 Echocardiography Brian Cooley MD Start: 09-13-2012 End: 09-15-2012 Natriuretic peptide B [Mass/volume] in Blood Brian Cooley MD Start: 09-01-2012 End: 09-01-2012 eRx Transmitted during this visit (Medicare only) Brian Cooley MD Start: 09-01-2012 End: 09-01-2012 Follow Up Appt 3 months Ele Pierre Start: 03-09-2012 End: 09-01-2012 *BMP Brian Cooley MD Start: 03-09-2012 End: 03-09-2012 Follow Up Appt 6 months Ele Pierre Plan of Treatment Date Care Activity Detail Author Start: 06-30-2032 Urine microalbumin profile [facility] Start: 09-24-2028 Urine microalbumin profile DTA P,TDAP,TD (2 - Td or Tdap) [facility] Start: 07-06-2026 Diabetes Screening Diabetes Screenin g [facility] Start: 04-20-2026 DIABETES SCREEN DIABETES SCREEN [facility] Start: 08-25-2025 DIABETES SCREEN DIABETES SCREEN [facility] Start: 06-28-2025 DIABETES SCREEN DIABETES SCREEN [facility] Start: 07-09-2024 RSV Vaccine (1 - 1-d ose 60+ series) RSV Vaccine (1 - 1-dose 60+ series) [facility] Immunizations Immunization Date Immunization Notes Care Provider Niko ruby 07-09-2023 influenza (HD-IIV4) vaccine, age 65+ yr, high dose, quadrivalent, PF (FLUZONE HIGH-DOSE) Manisha Nichole APRN.NIKO Work Phone: [facility] 06-30-2022 tetanus and diphther ia toxoids, adsorbed, preservative free, for adult use (5 Lf of tetanus toxoid and 2 Lf of diphtheria toxoid) Sofía Bogner PA-C Work Phone: [facility] 05-21-2022 influenza (aIIV4) vaccine, age 65+ yr, quadrivalent, PF (FLUAD QUADRIVALENT) Sofía Bogner PA-C Work Phone: [facility] 05-21-2022 influenza, high dose seasonal, preservative-free Maggi Vetovitz PA-C Work Phone: [facility] 12-30-2021 COVID-19 original vaccine, age 12+ yr, monovalent (PFIZER-BIONTECH - AGUILAR TOP) Sofía Bogner PA-C Work Phone: [facility] 12-30-2021 COVID-19 vaccine, ag e 12+ yr (PFIZER-BIONTECH - PURPLE TOP) Manisha Nichole APRN.CNP Work Phone: [facility] 11-25-2021 hepatitis A vaccine, adult dosage Maurice Hackett MD Work Phone: [facility] 05-29-2021 influenza (aIIV4) vaccine, age 65+ yr, quadrivalent, PF (FLUAD QUADRIVALENT) Maurice Hackett MD Work Phone: [facility] 05-15-2021 influenza virus vacc ine, unspecified formulation Maurice Hackett MD Work Phone: [facility] 05-26-2020 influenza, injectabl e, quadrivalent, preservative free Sofía Bogner PA-C Work Phone: [facility] 05-26-2020 zoster vaccine recombinant Sofía Bogner PA-C Work Phone: [facility] 05-23-2020 influenza, seasonal, injectable, preservative free Sofía Bogner PA-C Work Phone: [facility] 03-05-2020 hepatitis A vaccine, adult dosage Sofía Bogner PA-C Work Phone: [facility] 03-05-2020 zoster vaccine recombinant Sofía Bogner PA-C Work Phone: [facility] 07-26-2019 influenza, high dose seasonal, preservative-free Maurice Hackett MD Work Phone: [facility] Work Phone: 11-16-2018 influenza, seasonal, injectable, preservative free Sofía Bogner PA-C Work Phone: [facility] 11-16-2018 pneumococcal polysaccharide vaccine, 23 valent Sofía Bogner PA-C Work Phone: [facility] 12-10-2017 influenza, seasonal, injectable, preservative free Sofía Bogner PA-C Work Phone: [facility] 12-10-2017 pneumococcal polysaccharide vaccine, 23 valent Sofía Bogner PA-C Work Phone: [facility] 12-20-2015 pneumococcal conjuga te vaccine, 13 valent Maurice Hackett MD Work Phone: [facility] Work Phone: 07-12-2012 influenza virus vacc ine, unspecified formulation Maurice Hackett MD Work Phone: [facility] Work Phone: 01-08-2010 tetanus and diphther ia toxoids, adsorbed, preservative free, for adult use (2 Lf of tetanus toxoid and 2 Lf of diphtheria toxoid) Maurice Hackett MD Work Phone: [facility] Work Phone: 01-08-2010 zoster vaccine, live Maurice Hackett MD Work Phone: [facility] Work Phone: 06-12-2009 influenza virus vacc ine, unspecified formulation Maurice Hackett MD Work Phone: [facility] Work Phone: 05-04-2007 pneumococcal polysaccharide vaccine, 23 valent Maurice Hackett MD Work Phone: [facility] Work Phone: Payers Date Payer Category Payer Private Health Insurance [facility] SUPPLEMENT [id number] 2021-Present [phone] [address] [place] [address] Indemnity [id number] 2021 Private Health Insurance [facility] SUPPLEMENT [id number] 2021-Present [phone] [address] [place] [address] Indemnity [id number] 2021 Private Health Insurance [id number] 2007 Medicare MEDICARE MEDICAR E A AND B [id number] 2007-Present [phone] [address] [address] [place] [address] Medicare [id number] 2007 Medicare MEDICARE MEDICAR E A AND B [id number] 2007-Present [phone] [place] [address] Medicare [id number] 2007 Medicare [id number] Medicare [id number] Social History Date Type Detail Facility Start: 04-21-2022 Tobacco smoking status NHIS Never smoked tobacco [facility] Start: 10-07-2021 End: 08-17-2023 Alcohol intake Current drinker of alcohol (finding) [facility] Start: 10-07-2021 End: 01-14-2023 Alcohol intake [facility] Start: 01-27-2020 End: 08-22-2022 History SDOH Alcohol Frequency 3 [facility] Start: 11-17-2019 End: 08-22-2022 History SDOH Alcohol Std Drinks 1 [facility] Start: 10-28-2012 History SDOH Alcohol Comment 1 glass per week [facility] Start: 11-17-2019 End: 08-22-2022 History SDOH Social Connections Phone 5 [facility] Start: 11-17-2019 End: 08-22-2022 History SDOH Transport Med 2 [facility] Start: 11-16-2019 Education 20 [facility] Start: 1940 Sex Assigned At Female [facility] Work Phone: Start: 10-14-2021 End: 08-04-2022 Exposure to SARS-CoV-2 (event) Not sure [facility] Start: 04-21-2022 Tobacco use and exposure Smokeless tobacco non-user [facility] Start: 05-15-2022 End: 08-22-2022 History SDOH Social Connections Get Together 4 [facility] Start: 08-22-2022 History SDOH Alcohol Std Drinks 0 [facility] Start: 08-22-2022 End: 01-14-2023 Social connection and isolation panel [facility] Do you belong to any clubs or organizations such as sikh groups, unions, fraternal or athletic groups, or school groups? Yes [facility] Are you now , , , , never or living with a partner? [facility] How often to you hav e a drink containing alcohol? Monthly or less [facility] How many standard dr inks containing alcohol do you have on a typical day? Patient does not drink [facility] How often do you hav e 6 or more drinks on 1 occasion? Never [facility] Do you feel stress - tense, restless, nervous, or anxious, or unable to sleep at night because your mind is troubled all the time - these days [OSQ] Only a little [facility] (I/We) worried shiloh er (my/our) food would run out before (I/we) got money to buy more. Never true [facility] In the past 12 month s, was there a time when you were not able to pay the mortgage or rent on time? No [facility] Start: 02-01-2020 Gender identity Identifies as female gender (finding) [facility] Work Phone: Start: 02-01-2020 Sexual orientation Heterosexual (finding) [facility] Work Phone: Clinical Notes 12-20-2015 to 09-01-2023 Maggi Aldana PA-C - 08/17/2023 8:42 AM Mari Rodrigues Ma - 08/17/2023 8:27 AM Jennifer Spaulding RN - 08/10/2023 9:53 AM Jatinder Antoine MD - 08/10/2023 9:31 AM ESTPatient Instructions Note Date & Type Note Facility 09-01-2023 Note HNO ID: [id number] Author: Halle Sampson APRN.TECHNICAL SERVICES COORDINATOR Service: ? Author Type: Nurse Practitioner Type: Progress Notes Filed: 09/01/2023 3:07 PM Note Text: SUBJECTIVE Julianna Tucker is a 83 year old female here today for a check up on her medical problems. Chief Complaint Patient presents with: ER F/U: [facility] on 08/29/2023 for vomiting /dehydration denies any further nausea/vomiting. Stills feels weak and unsteady on feet Has poor urinary output despite drinking greater than 64 oz of fluid HPI Julianna Tucker is a 83 year old female. She is here today for follow up from being seen in the ED at [facility]. Seen 08/29/2023 for vomiting and diagnosed with dehydration. ER notes reviewed in care everytwhere. Trying to keep hydrated. History of issues with her sodium levels and she knows if this gets off she gets issues with the nausea and vomiting. Tried reglan, zofran, and meclizine for the nausea. Given IV fluids in the ED. Basom better a little. Still some weakness. Sodium was 131. Trying to drink 64 ounces or more in a day. Drank some broth yesterday. Follows with [facility]. History of a fib. Recent stress test and ECHO done, stable. Her medications were reviewed today and her list is now up to date. Medications Current Outpatient Medications Medication Sig BENEFIBER, GUAR GUM, ORAL Take 2 teaspoonsful by mouth two times a day as needed. meclizine (ANTIVERT) 25 mg tab Take 1 tablet by mouth every 6 hours as needed (dizziness). famotidine (PEPCID) 20 mg tablet Take 1 tablet by mouth at bedtime as needed. fludrocortisone (FLORINEF) 0.1 mg tablet Taking 3 times a week (Patient taking differently: Taking 1/2 a tablet 3 times a week) denosumab (PROLIA) 60 mg/mL Inject 60 mg subcutaneously one time only. Gets injection every 6 months Magnesium Glycinate 120mg 3 at night Stress, blood sugar, thyroid/hormones/adrenals/sleep/en ergy/toxins/muscles/constipation/a sthma Work up to 3 capsules with meals at night - can cause loose stools metoprolol succinate ER (TOPROL XL) 25 mg 24 hr tablet Take half tablet in the morning and 1 tablet in the evening. esomeprazole (NEXIUM) 40 mg capsule Take 1 capsule by mouth daily before breakfast. 1/2 hr before meal. anastrozole (ARIMIDEX) 1 mg tablet Take 1 mg by mouth once daily. APIXABAN (ELIQUIS ORAL) Take by mouth twice daily. dofetilide (TIKOSYN) 250 mcg capsule Take 250 mcg by mouth twice daily. acetaminophen (TYLENOL) 325 mg tablet Take 650 mg by mouth every 6 hours as needed. calcium carbonate 600 mg-cholecalciferol 200 units 600 mg-5 mcg (200 unit) tab Take 1 tablet by mouth once daily. ergocalciferol(VITAMIN D 400 UNIT CAP) Take 1,000 Units by mouth once daily. No current facility-administered medications for this visit. ALLERGIES Allergen Reactions Adhesive Tape (Selena* Rash Cantaloupe Erythromycin GI Upset Gemtesa [Vibegron] Diarrhea Grass Pollen Mold Penicillins Rash, Swelling Pollen Prevacid [Lansopraz* Diarrhea All PPIs tried have given her diarrhea. Sulfa (Sulfonamide * Pt uncertain if Sulfa allergy is accurate or not. ACTIVE PROBLEM LIST Paroxysmal Atrial Fibrillation (Hcc) (A priority) Comment: No anticoagulation. (2013: CHADS2=0. [id number]=5) On eliquis currently. She has no trouble with bleeding. Tikosyn works good for her. She is taking 25 mgs twice a day. Hyponatremia - 02/11/2011 (A priority) Chronic Fatigue Disorder - 02/11/2011 (A priority) Comment: Fatigue and slow recovery from illness Palpitations - 02/23/2009 (A priority) Esophageal Reflux (A priority) Insomnia - 02/11/2011 (B priority) Osteoarth NOS-L/Leg (B priority) Comment: roseanna. 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 She is done with the actonel for a life time. Neck Pain - 08/16/2015 Right-Sided Low Back Pain With Right-Sided Sciatica - 07/24/2015 Pain in Joint, Lower Leg - 04/27/2014 Dizziness and Giddiness - 03/08/2013 Closed fracture of lumbar vertebra ([facility]) - 10/18/2012 Comment: Strong family history of osteoporosis. She is done with the actonel for a life time. Social History Tobacco Use Smoking status: Never Smokeless tobacco: Never Vaping Use Vaping Use: Never used Substance Use Topics Alcohol use: Yes Alcohol/ (more content not included)... [facility] 08-24-2023 Note HNO ID: [id number] Author: JATINDER WARREN MD Service: ? Author Type: Physician Type: Progress Notes Filed: 09/19/2023 16:11 Note Text: Jatinder Warren MD Department of Orthopaedics Orthopaedics [address] [facility] [address] Dept: [phone] Dept August 24, 2023 CHIEF COMPLAINT: Established Patient and Injections of the Right Knee HPI Patient here today for Euflexxa injection # 3 into the right knee. She would also like an injection into the right shoulder. ASSESSMENT: M17.11 Primary osteoarthritis of right knee (primary encounter diagnosis) M25.511, G89.29 Chronic right shoulder pain M25.819 Shoulder impingement PLAN: Euflexxa and right shoulder steroid injection. Ms. Julianna Tucker was advised as to contrast therapies and/or to take analgesics/anti-inflammatories as needed and all contraindications were reviewed. OBJECTIVE: Ms. Julianna Tucker is a pleasant 83 year old in no apparent distress. Gen:There were no vitals taken for this visit. Large Joint Arthro/Inj: R knee joint Informed Consent Consent Obtained: Verbal Austin Protocol A moment to CARE was completed. SIGN IN Sign in communication not applicable due to emergent procedure. Personnel directly involved with the procedure wore the appropriate PPE. Special Equipment: N/A Patient/Surrogate Stated/Verified: Patient name, Date of , Relevant allergies and Intended procedure TIME OUT Intended patient and procedure match the source document(s). Consent documented and matches the intended procedure. Relevant labs, photos, and/or imaging studies have been reviewed. Correct side/site marked and visible. Medications required for procedure verified. No fire risk assessment and interventions applicable. No implant(s) inserted. 08/24/2023 2:00 PM The procedure site was prepped in the usual sterile fashion. Site: R knee joint Medications: 20 mg sodium hyaluronate 10 mg/mL(mw 2.4 -3.6 million) Outcome: Tolerated well, no immediate complications Post-injection instructions were reviewed with the patient and the patient voiced understanding of these instructions. SIGN OUT All instruments, equipment, possible retained foreign bodies accounted for. Large Joint Arthro/Inj: R glenohumeral Informed Consent Consent Obtained: Verbal Austin Protocol A moment to CARE was completed. SIGN IN Personnel directly involved with the procedure wore the appropriate PPE. Special Equipment: N/A Patient/Surrogate Stated/Verified: Patient name, Date of , Relevant allergies and Intended procedure TIME OUT Intended patient and procedure match the source document(s). Consent documented and matches the intended procedure. Relevant labs, photos, and/or imaging studies have been reviewed. Correct side/site marked and visible. Medications required for procedure verified. No fire risk assessment and interventions applicable. No implant(s) inserted. 08/24/2023 2:00 PM The procedure site was prepped in the usual sterile fashion. Site: R glenohumeral Medications: 6 mg betamethasone acetate-betamethasone sodium phosphate 6 mg/mL Anesthetics: 4 mL lidocaine (PF) 10 mg/mL (1 %) Outcome: Tolerated well, no immediate complications Post-injection instructions were reviewed with the patient and the patient voiced understanding of these instructions. SIGN OUT All instruments, equipment, possible retained foreign bodies accounted for. Supporting Subjective Information Below: Past Surgical History: PAST SURGICAL HISTORY Procedure Laterality Date CATHETER, ABLATION 08/19/2013 for afib COLONOSCOPY FLX DX W/COLLJ SPEC WHEN PFRMD 07/23/2004 repeat due 2013 COLONOSCOPY FLX DX W/COLLJ SPEC WHEN PFRMD 06/01/2014 Colonoscopy COLONOSCOPY SCREENING 2013 COLONOSCOPY SCREENING 2018 DILATION AND CURETTAGE DXAND/THER NONOBSTETRIC 1989 EGD TRANSORAL BIOPSY SINGLE/MULTIPLE EGD TRANSORAL BIOPSY SINGLE/MULTIPLE 08/01/2010 ESOPHAGOGASTRODUODENOSCOPY TRANSORAL DIAGNOSTIC 06/01/2014 EGD NIPPLE EXPLORATION 09/27/2009 LEFT, surgical bx OOPHORECTOMY PARTIAL/TOTAL UNI/BI AGE 26 Oophorectomy-LEFT PAST SURGICAL HISTORY OF Left 04/2017 breast mastectomy SIGMOIDOSCOPY FLX DX W/COLLJ SPEC BR/WA IF PFRMD 07/23/2004 Sigmoidoscopy Medications: Current Outpatient Medications Medication Sig meclizine (ANTIVERT) 25 mg tab Take 1 tablet by mouth every 6 hours as needed (dizziness). famotidine (PEPCID) 20 mg tablet Take 1 tablet by mouth at bedtime as needed. fludrocortisone (FLORINEF) 0.1 mg tablet Taking 3 times a week (Patient taking differently: Taking 1/2 a tablet 3 times a week) denosumab (PROLIA) 60 mg/mL Inject 60 mg subcutaneously one time only. Gets injection every 6 months Magnesium Glycinate 120mg 3 at night Stress, blood sugar, thyroid/hormones/adrenals/sleep/en ergy/toxins/muscles/constipation/a sthma Work up to 3 capsules with meals at night - can caus (more content not included)... [facility] 08-17-2023 Note HNO ID: [id number] Author: Maggi Aldana PA-C Service: ? Author Type: Physician Stunt Woman Type: Progress Notes Filed: 08/17/2023 11:28 AM Note Text: Large Joint Arthro/Inj: R knee joint Informed Consent Consent Obtained: Verbal Austin Protocol A moment to CARE was completed. SIGN IN Sign in communication not applicable due to emergent procedure. Personnel directly involved with the procedure wore the appropriate PPE. Special Equipment: N/A Patient/Surrogate Stated/Verified: Patient name, Date of , Relevant allergies and Intended procedure TIME OUT Intended patient and procedure match the source document(s). Consent documented and matches the intended procedure. Relevant labs, photos, and/or imaging studies have been reviewed. Correct side/site marked and visible. Medications required for procedure verified. No fire risk assessment and interventions applicable. No implant(s) inserted. 08/17/2023 8:43 AM The procedure site was prepped in the usual sterile fashion. Site: R knee joint Medications: 20 mg sodium hyaluronate 10 mg/mL(mw 2.4 -3.6 million) Outcome: Tolerated well, no immediate complications Post-injection instructions were reviewed with the patient and the patient voiced understanding of these instructions. SIGN OUT All instruments, equipment, possible retained foreign bodies accounted for. [facility] 08-17-2023 Note HNO ID: [id number] Author: Mari Conti Ma Service: ? Author Type: ? Type: Progress Notes Filed: 08/17/2023 11:28 AM Note Text: Patient presents with: Right Knee - Injections Euflexxa injection # 2 right knee AMB ROOMING INTAKE FLOWSHEET DATA Pain Pain Level: 4 Pain Location: Knee-Right Description: Sharp, Dull, Aching Duration Amount of Time: (Ongoing) Frequency: Intermittent (Occurs with weight bearing) Intervention/Comfort measure: Medication Patient here for Euflexxa injection # 2 right knee LOT # [id number] EXP 08/09/2024 Taking Tylenol when needed for the pain. Mari Conti Ma [facility] 08-17-2023 History of Present illness Narrative Associated Order(s): Large Joint Arthro/Inj: R knee joint Post-Procedure Diagnose(s): Primary osteoarthritis of right knee; Chronic pain of right knee Large Joint Arthro/Inj: R knee joint Informed Consent Consent Obtained: Verbal Austin Protocol A moment to CARE was completed. SIGN IN Sign in communication not applicable due to emergent procedure. Personnel directly involved with the procedure wore the appropriate PPE. Special Equipment: N/A Patient/Surrogate Stated/Verified: Patient name, Date of , Relevant allergies and Intended procedure TIME OUT Intended patient and procedure match the source document(s). Consent documented and matches the intended procedure. Relevant labs, photos, and/or imaging studies have been reviewed. Correct side/site marked and visible. Medications required for procedure verified. No fire risk assessment and interventions applicable. No implant(s) inserted. 08/17/2023 8:43 AM The procedure site was prepped in the usual sterile fashion. Site: R knee joint Medications: 20 mg sodium hyaluronate 10 mg/mL(mw 2.4 -3.6 million) Outcome: Tolerated well, no immediate complications Post-injection instructions were reviewed with the patient and the patient voiced understanding of these instructions. SIGN OUT All instruments, equipment, possible retained foreign bodies accounted for. Patient presents with: Right Knee - Injections Euflexxa injection # 2 right knee AMB ROOMING INTAKE FLOWSHEET DATA Pain Pain Level: 4 Pain Location: Knee-Right Description: Sharp, Dull, Aching Duration Amount of Time: (Ongoing) Frequency: Intermittent (Occurs with weight bearing) Intervention/Comfort measure: Medication Patient here for Euflexxa injection # 2 right knee LOT # [id number] EXP 08/09/2024 Taking Tylenol when needed for the pain. Mari Conti Ma documented in this encounter [facility] 08-10-2023 Note HNO ID: [id number] Author: Jennifer Hardin RN Service: ? Author Type: Registered Nurse Type: Progress Notes Filed: 08/10/2023 12:25 PM Note Text: Euflexxa Injection Right knee LOT # [id number] EXP 2024-06-22 Jennifer Hardin RN [facility] 08-10-2023 Note HNO ID: [id number] Author: Jatinder Warren MD Service: ? Author Type: Physician Type: Progress Notes Filed: 08/10/2023 12:25 PM Note Text: Jatinder Warren MD Department of Orthopaedics Orthopa[facility]ics [address] [facility] [address] Dept: [phone] Dept August 10, 2023 CHIEF COMPLAINT: Follow Up and Knee Pain of the Right Knee and Last seen by Maggi on 08/11/22 with Maggi (OA right knee with series of Euflexxa injection given) HPI Patient here for evaluation right knee pain. Had series of Euflexxa injections given by Maggi last year. Patient states they helped for about 6-8 months. Would like injections today. New X-ray done today. ASSESSMENT: M17.11 Primary osteoarthritis of right knee (primary encounter diagnosis) M25.561, G89.29 Chronic pain of right knee PLAN: Repeat Euflexxa Ms. Julianna Tucker was advised as to contrast therapies and/or to take analgesics/anti-inflammatories as needed and all contraindications were reviewed. OBJECTIVE: Ms. Julianna Tucker is a pleasant 83 year old in no apparent distress. Gen:There were no vitals taken for this visit. nl development, thin-appearing , no deformities ENT: Normocephalic, normal hearing, moist mucosa CV: Pulses:DP/PT= 2+ and symmetric, capillary refill < 2 secs, no peripheral edema/varicosities Skin: no rash, bruising or lesions. Good turgor. Psych: cooperative and appropriate, alert and oriented x 3, good mood and affect. Musculoskeletal: Able exam Large Joint Arthro/Inj: R knee joint Informed Consent Consent Obtained: Verbal Austin Protocol A moment to CARE was completed. SIGN IN Sign in communication not applicable due to emergent procedure. Personnel directly involved with the procedure wore the appropriate PPE. Special Equipment: N/A Patient/Surrogate Stated/Verified: Patient name, Date of , Relevant allergies and Intended procedure TIME OUT Intended patient and procedure match the source document(s). Consent documented and matches the intended procedure. Relevant labs, photos, and/or imaging studies have been reviewed. Correct side/site marked and visible. Medications required for procedure verified. No fire risk assessment and interventions applicable. No implant(s) inserted. 08/10/2023 10:05 AM The procedure site was prepped in the usual sterile fashion. Site: R knee joint Medications: 20 mg sodium hyaluronate 10 mg/mL(mw 2.4 -3.6 million) Outcome: Tolerated well, no immediate complications Post-injection instructions were reviewed with the patient and the patient voiced understanding of these instructions. SIGN OUT All instruments, equipment, possible retained foreign bodies accounted for. Supporting Subjective Information Below: Past Surgical History: PAST SURGICAL HISTORY Procedure Laterality Date CATHETER, ABLATION 08/19/2013 for afib COLONOSCOPY FLX DX W/COLLJ SPEC WHEN PFRMD 07/23/2004 repeat due 2013 COLONOSCOPY FLX DX W/COLLJ SPEC WHEN PFRMD 06/01/2014 Colonoscopy COLONOSCOPY SCREENING 2013 COLONOSCOPY SCREENING 2018 DILATION AND CURETTAGE DXAND/THER NONOBSTETRIC 1989 EGD TRANSORAL BIOPSY SINGLE/MULTIPLE EGD TRANSORAL BIOPSY SINGLE/MULTIPLE 08/01/2010 ESOPHAGOGASTRODUODENOSCOPY TRANSORAL DIAGNOSTIC 06/01/2014 EGD NIPPLE EXPLORATION 09/27/2009 LEFT, surgical bx OOPHORECTOMY PARTIAL/TOTAL UNI/BI AGE 26 Oophorectomy-LEFT PAST SURGICAL HISTORY OF Left 04/2017 breast mastectomy SIGMOIDOSCOPY FLX DX W/COLLJ SPEC BR/WA IF PFRMD 07/23/2004 Sigmoidoscopy Medications: Current Outpatient Medications Medication Sig meclizine (ANTIVERT) 25 mg tab Take 1 tablet by mouth every 6 hours as needed (dizziness). famotidine (PEPCID) 20 mg tablet Take 1 tablet by mouth at bedtime as needed. fludrocortisone (FLORINEF) 0.1 mg tablet Taking 3 times a week (Patient taking differently: Taking 1/2 a tablet 3 times a week) denosumab (PROLIA) 60 mg/mL Inject 60 mg subcutaneously one time only. Gets injection every 6 months Magnesium Glycinate 120mg 3 at night Stress, blood sugar, thyroid/hormones/adrenals/sleep/en ergy/toxins/muscles/constipation/a sthma Work up to 3 capsules with meals at night - can cause loose stools metoprolol succinate ER (TOPROL XL) 25 mg 24 hr tablet Take half tablet in the morning and 1 tablet in the evening. esomeprazole (NEXIUM) 40 mg capsule Take 1 capsule by mouth daily before breakfast. 1/2 hr before meal. anastrozole (ARIMIDEX) 1 mg tablet Take 1 mg by mouth once daily. APIXABAN (ELIQUIS ORAL) Take by mouth twice daily. dofetilide (TIKOSYN) 250 mcg capsule Take 250 mcg by mouth twice daily. acetaminophen (TYLENOL) 325 mg tablet Take 650 mg by mouth every 6 hours as needed. calcium carbonate 600 mg-cholecalciferol 200 units 600 mg-5 mcg (200 unit) tab Take 1 tablet by mouth once daily. ergocalciferol(VITAMIN D 400 UNIT CAP) Take 1,000 Units by mouth once daily. No current (more content not included)... [facility] 08-10-2023 Note HNO ID: [id number] Author: Analia Hernandez RT(R) Service: ? Author Type: Family Development Extension Specialist Type: Progress Notes Filed: 08/10/2023 9:19 AM Note Text: Radiology Service Progress Note PATIENT NAME: Julianna Tucker DATE OF SERVICE: August 10, 2023 TIME: 8:59 AM PATIENT IDENTITY VERIFICATION COMPLETED USING TWO (2) IDENTIFIERS: Name and Date of confirmed by patient verbally. FALL SCREENING: Has the patient had 2 falls in the last year or 1 fall with injury or currently using an Ambulatory Assistive Device (Walker, Cane, Wheelchair, Crutches, etc.)? No PATIENT GENDER DATA: Female. status: : No status: NO. PATIENT RELEVANT IMPLANT DATA REVIEWED: Yes RADIOLOGY DEPARTMENT: General X-ray: Exam(s) Completed: Lower Extremity X-Ray(s): Knee, AP / Lat / Tunne / Merchant Right PERIPHERAL IV DATA: Not applicable SIGNED BY: RT Tamir(R) August 10, 2023 8:59 AM [facility] 08-10-2023 History of Present illness Narrative Euflexxa Injection Right knee LOT # [id number] EXP 2024-06-22 Jennifer Hardin RN Associated Order(s): Large Joint Arthro/Inj: R knee joint Post-Procedure Diagnose(s): Chronic pain of right knee; Primary osteoarthritis of right knee Jatinder Warren MD Department of Orthopaedics Orthopaedics [address] [facility] [address] Dept: [phone] Dept August 10, 2023 CHIEF COMPLAINT: Follow Up and Knee Pain of the Right Knee and Last seen by Maggi on 08/11/22 with Maggi (OA right knee with series of Euflexxa injection given) HPI Patient here for evaluation right knee pain. Had series of Euflexxa injections given by Maggi last year. Patient states they helped for about 6-8 months. Would like injections today. New X-ray done today. ASSESSMENT: M17.11 Primary osteoarthritis of right knee (primary encounter diagnosis) M25.561, G89.29 Chronic pain of right knee PLAN: Repeat Euflexxa Ms. Julianna Tucker was advised as to contrast therapies and/or to take analgesics/anti-inflammatories as needed and all contraindications were reviewed. OBJECTIVE: Ms. Julianna Tucker is a pleasant 83 year old in no apparent distress. Gen:There were no vitals taken for this visit. nl development, thin-appearing , no deformities ENT: Normocephalic, normal hearing, moist mucosa CV: Pulses:DP/PT= 2+ and symmetric, capillary refill < 2 secs, no peripheral edema/varicosities Skin: no rash, bruising or lesions. Good turgor. Psych: cooperative and appropriate, alert and oriented x 3, good mood and affect. Musculoskeletal: Able exam Large Joint Arthro/Inj: R knee joint Informed Consent Consent Obtained: Verbal Austin Protocol A moment to CARE was completed. SIGN IN Sign in communication not applicable due to emergent procedure. Personnel directly involved with the procedure wore the appropriate PPE. Special Equipment: N/A Patient/Surrogate Stated/Verified: Patient name, Date of , Relevant allergies and Intended procedure TIME OUT Intended patient and procedure match the source document(s). Consent documented and matches the intended procedure. Relevant labs, photos, and/or imaging studies have been reviewed. Correct side/site marked and visible. Medications required for procedure verified. No fire risk assessment and interventions applicable. No implant(s) inserted. 08/10/2023 10:05 AM The procedure site was prepped in the usual sterile fashion. Site: R knee joint Medications: 20 mg sodium hyaluronate 10 mg/mL(mw 2.4 -3.6 million) Outcome: Tolerated well, no immediate complications Post-injection instructions were reviewed with the patient and the patient voiced understanding of these instructions. SIGN OUT All instruments, equipment, possible retained foreign bodies accounted for. Supporting Subjective Information Below: Past Surgical History: PAST SURGICAL HISTORY Procedure Laterality Date CATHETER, ABLATION 08/19/2013 for afib COLONOSCOPY FLX DX W/COLLJ SPEC WHEN PFRMD 07/23/2004 repeat due 2013 COLONOSCOPY FLX DX W/COLLJ SPEC WHEN PFRMD 06/01/2014 Colonoscopy COLONOSCOPY SCREENING 2013 COLONOSCOPY SCREENING 2018 DILATION & CURETTAGE DX&/THER NONOBSTETRIC 1989 EGD TRANSORAL BIOPSY SINGLE/MULTIPLE EGD TRANSORAL BIOPSY SINGLE/MULTIPLE 08/01/2010 ESOPHAGOGASTRODUODENOSCOPY TRANSORAL DIAGNOSTIC 06/01/2014 EGD NIPPLE EXPLORATION 09/27/2009 LEFT, surgical bx OOPHORECTOMY PARTIAL/TOTAL UNI/BI AGE 26 Oophorectomy-LEFT PAST SURGICAL HISTORY OF Left 04/2017 breast mastectomy SIGMOIDOSCOPY FLX DX W/COLLJ SPEC BR/WA IF PFRMD 07/23/2004 Sigmoidoscopy Medications: Current Outpatient Medications Medication Sig meclizine (ANTIVERT) 25 mg tab Take 1 tablet by mouth every 6 hours as needed (dizziness). famotidine (PEPCID) 20 mg tablet Take 1 tablet by mouth at bedtime as needed. fludrocortisone (FLORINEF) 0.1 mg tablet Taking 3 times a week (Patient taking differently: Taking 1/2 a tablet 3 times a week) denosumab (PROLIA) 60 mg/mL Inject 60 mg subcutaneously one time only. Gets injection every 6 months Magnesium Glycinate 120mg 3 at night Stress, blood sugar, thyroid/hormones/adrenals/sleep/en ergy/toxins/muscles/constipation/a sthma Work up to 3 capsules with meals at night - can cause loose stools metoprolol succinate ER (TOPROL XL) 25 mg 24 hr tablet Take half tablet in the morning and 1 tablet in the evening. esomeprazole (NEXIUM) 40 mg capsule Take 1 capsule by mouth daily before breakfast. 1/2 hr before meal. anastrozole (ARIMIDEX) 1 mg tablet Take 1 mg by mouth once daily. APIXABAN (ELIQUIS ORAL) Take by mouth twice daily. dofetilide (TIKOSYN) 250 mcg capsule Take 250 mcg by mouth twice daily. acetaminophen (TYLENOL) 325 mg tablet Take 650 mg by mouth every 6 hours as needed. calcium carbonate 600 mg-cholecalciferol 200 units 600 mg-5 mcg (200 unit) tab Take 1 tablet by mouth once daily. ergocalciferol(VITAMIN D 400 UNIT CAP) Take 1,000 Units by mouth once daily. No current facility-administered medications for this visit. Allergies: Adhesive Tape (Rosins), Cantaloupe, Erythromycin, Gemtesa [Vibegron], Grass Pollen, Mold, Penicillins, Pollen, Prevacid [Lansoprazole], and Sulfa (Sulfonamide Antibiotics) ROS: General (negative for fatigue, malaise, weight loss/gain) HEENT (negative for headache, earache, recent vision changes, sinus pain, sore throat) Respiratory (no recent shortness of breath, hemoptysis) CV (negative for chest tightness, palpitations) Musculoskeletal (see HPI) Psych (no depression, anxiety) Jatinder Warren MD documented in this encounter [facility] 07-23-2023 Miscellaneous Notes Triage Protocol Recommended: ER now. Pt agreeable. Has someone to take her now. Reason for Disposition [1] Bleeding present > 30 minutes AND [2] using correct method of direct pressure Answer Assessment - Initial Assessment Questions 1. AMOUNT OF BLEEDING: moderate to severe 2. ONSET: > 1 hour ago 3. FREQUENCY: 1 4. RECURRENT SYMPTOMS: never like this 5. CAUSE: Pt not sure, takes blood thinner 6. LOCAL FACTORS: air dry 7. SYSTEMIC FACTORS: see history 8. BLOOD THINNERS: yes, Eliquis 9. OTHER SYMPTOMS: no 10. :post menopausal Protocols used: [id number] documented in this encounter [facility] 07-09-2023 Note HNO ID: [id number] Author: Manisha Nichole APRN.TECHNICAL SERVICES COORDINATOR Service: ? Author Type: Nurse Practitioner Type: Progress Notes Filed: 07/09/2023 4:19 PM Note Text: CC: Patient presents with: Recheck: Follow up Immunizations: Flu vaccination HPI Julianna Tucker is a 83 year old female who presents today for follow up on diarrhea. Had been started on gemtasa for OAB by urology but had severe diarrhea resulting in ER visit and getting IVF. Diarrhea has completely resolved without being on the gemtasa. SIADH/Hyponatremia: Drinks on average of 6 glasses of water a day. If she does not feel hydrated, she will have increased in chronic fatigue and motion sickness. Reports she is on florinef for low blood pressure. Per patient this was started by neurologist Dr. Blanca. Ms. Tucker denies headache, chest pain, palpitations, difficulty breathing when laying flat, and dyspnea. Patient denies any side effects of her medication(s) and is compliant with their regimen. She does check BP's away from this office and denies any further low blood pressure readings. Would like to stop the florinef as she feels it is making her retain fluids. Dependent edema to BLE as the day continues. Will occasionally still have some trace edema to right foot in AM but overall feels like feels like she is retaining fluid Anxiety: Feels improved with starting counseling. Sleep: gets an average of 7 hours of sleep but broken with waking up to urinate. Alcohol use: does not drink any alcohol Drug use: No Appetite: good Suicidal Thoughts: No suicidal ideation, intent or plan At end of appointment patient with wanting to return to orthopedics for knee injections for her chronic pain of right knee. REVIEW OF SYSTEMS General: no fevers, no chills, no night sweats, no recurrent infections, no change in appetite, no change in energy, and no significant changes in weight Respiratory: no cough, no wheezing, no shortness of breath, no hemoptysis Cardiovascular: no chest pain, no chest pressure, no palpitations, and no swelling PAST MEDICAL HISTORY Diagnosis Date Abnormality of gait 03/08/2013 Allergic rhinitis due to other allergen Atrial fibrillation (HCC) Chondrocalcinosis, cause unspecified, involving lower leg(712.36) 04/25/2008 CPPD right leg (on xray) - has never had an acute pseudogout attack Chronic fatigue Compression fracture of L1 lumbar vertebra (HCC) Concussion Depression Diverticulosis of colon (without mention of hemorrhage) Diverticulosis of large intestine Duodenitis without mention of hemorrhage Dysphagia Dysphagia, unspecified(787.20) 08/01/2010 Esophageal reflux rare symptoms, had more pain on Prevacid than off it Esophagitis, unspecified Fatigue 02/11/2011 Inflamed seborrheic keratosis 04/20/2008 Ingrown toenail 10/07/2010 Irritable bowel syndrome gets constipated easily, also lactose intolerant Loss of weight 02/23/2009 Lumbago 10/18/2012 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 right knee Osteoporosis 07/04/2009 osteopenia 06/2011 Other chronic dermatitis due to solar radiation 04/20/2008 Other forms of migraine resolved Pain in joint, pelvic region and thigh 04/27/2014 Recurrent UTI SOLAR LENGINES////DYSCHROMIA OTHER 04/20/2008 Tachycardia tachycardia, atrial flutter Unspecified constipation Vitamin D deficiency PAST SURGICAL HISTORY Procedure Laterality Date CATHETER, ABLATION 08/19/2013 for afib COLONOSCOPY FLX DX W/COLLJ SPEC WHEN PFRMD 07/23/2004 repeat due 2013 COLONOSCOPY FLX DX W/COLLJ SPEC WHEN PFRMD 06/01/2014 Colonoscopy COLONOSCOPY SCREENING 2013 COLONOSCOPY SCREENING 2018 DILATION AND CURETTAGE DXAND/THER NONOBSTETRIC 1989 EGD TRANSORAL BIOPSY SINGLE/MULTIPLE EGD TRANSORAL BIOPSY SINGLE/MULTIPLE 08/01/2010 ESOPHAGOGASTRODUODENOSCOPY TRANSORAL DIAGNOSTIC 06/01/2014 EGD NIPPLE EXPLORATION 09/27/2009 LEFT, surgical bx OOPHORECTOMY PARTIAL/TOTAL UNI/BI AGE 26 Oophorectomy-LEFT PAST SURGICAL HISTORY OF Left 04/2017 breast mastectomy SIGMOIDOSCOPY FLX DX W/COLLJ SPEC BR/WA IF PFRMD 07/23/2004 Sigmoidoscopy ALLERGIES Adhesive Tape (Rosins), Cantaloupe, Erythromycin, Grass Pollen, Mold, Penicillins, Pollen, Prevacid [Lansoprazole], and Sulfa (Sulfonamide Antibiotics) MEDICATIONS famotidine (PEPCID) 20 mg tablet Take 1 tablet by mouth at bedtime as needed. denosumab (PROLIA) 60 mg/mL Inject 60 mg subcutaneously one time only. Gets injection every 6 months Magnesium Glycinate 120mg 3 at night Stress, blood sugar, thyroid/hormones/adrenals/sleep/en ergy/toxins/muscles/constipation/a sthma Work up to 3 capsules with me (more content not included)... [facility] 07-09-2023 Instructions Manisha Nichole APRN.NIKO - 07/09/2023 1:23 PM EDT Buspar. documented in this encounter [facility] 07-09-2023 History of Present illness Narrative CC: Patient presents with: Recheck: Follow up Immunizations: Flu vaccination HPI Julianna Tucker is a 83 year old female who presents today for follow up on diarrhea. Had been started on gemtasa for OAB by urology but had severe diarrhea resulting in ER visit and getting IVF. Diarrhea has completely resolved without being on the gemtasa. SIADH/Hyponatremia: Drinks on average of 6 glasses of water a day. If she does not feel hydrated, she will have increased in chronic fatigue and motion sickness. Reports she is on florinef for low blood pressure. Per patient this was started by neurologist Dr. Blanca. Ms. Tucker denies headache, chest pain, palpitations, difficulty breathing when laying flat, and dyspnea. Patient denies any side effects of her medication(s) and is compliant with their regimen. She does check BP's away from this office and denies any further low blood pressure readings. Would like to stop the florinef as she feels it is making her retain fluids. Dependent edema to BLE as the day continues. Will occasionally still have some trace edema to right foot in AM but overall feels like feels like she is retaining fluid Anxiety: Feels improved with starting counseling. Sleep: gets an average of 7 hours of sleep but broken with waking up to urinate. Alcohol use: does not drink any alcohol Drug use: No Appetite: good Suicidal Thoughts: No suicidal ideation, intent or plan At end of appointment patient with wanting to return to orthopedics for knee injections for her chronic pain of right knee. REVIEW OF SYSTEMS General: no fevers, no chills, no night sweats, no recurrent infections, no change in appetite, no change in energy, and no significant changes in weight Respiratory: no cough, no wheezing, no shortness of breath, no hemoptysis Cardiovascular: no chest pain, no chest pressure, no palpitations, and no swelling PAST MEDICAL HISTORY Diagnosis Date Abnormality of gait 03/08/2013 Allergic rhinitis due to other allergen Atrial fibrillation (HCC) Chondrocalcinosis, cause unspecified, involving lower leg(712.36) 04/25/2008 CPPD right leg (on xray) - has never had an acute pseudogout attack Chronic fatigue Compression fracture of L1 lumbar vertebra (HCC) Concussion Depression Diverticulosis of colon (without mention of hemorrhage) Diverticulosis of large intestine Duodenitis without mention of hemorrhage Dysphagia Dysphagia, unspecified(447.20) 08/01/2010 Esophageal reflux rare symptoms, had more pain on Prevacid than off it Esophagitis, unspecified Fatigue 02/11/2011 Inflamed seborrheic keratosis 04/20/2008 Ingrown toenail 10/07/2010 Irritable bowel syndrome gets constipated easily, also lactose intolerant Loss of weight 02/23/2009 Lumbago 10/18/2012 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 right knee Osteoporosis 07/04/2009 osteopenia 06/2011 Other chronic dermatitis due to solar radiation 04/20/2008 Other forms of migraine resolved Pain in joint, pelvic region and thigh 04/27/2014 Recurrent UTI SOLAR LENGINES////DYSCHROMIA OTHER 04/20/2008 Tachycardia tachycardia, atrial flutter Unspecified constipation Vitamin D deficiency PAST SURGICAL HISTORY Procedure Laterality Date CATHETER, ABLATION 08/19/2013 for afib COLONOSCOPY FLX DX W/COLLJ SPEC WHEN PFRMD 07/23/2004 repeat due 2013 COLONOSCOPY FLX DX W/COLLJ SPEC WHEN PFRMD 06/01/2014 Colonoscopy COLONOSCOPY SCREENING 2013 COLONOSCOPY SCREENING 2018 DILATION & CURETTAGE DX&/THER NONOBSTETRIC 1989 EGD TRANSORAL BIOPSY SINGLE/MULTIPLE EGD TRANSORAL BIOPSY SINGLE/MULTIPLE 08/01/2010 ESOPHAGOGASTRODUODENOSCOPY TRANSORAL DIAGNOSTIC 06/01/2014 EGD NIPPLE EXPLORATION 09/27/2009 LEFT, surgical bx OOPHORECTOMY PARTIAL/TOTAL UNI/BI AGE 26 Oophorectomy-LEFT PAST SURGICAL HISTORY OF Left 04/2017 breast mastectomy SIGMOIDOSCOPY FLX DX W/COLLJ SPEC BR/WA IF PFRMD 07/23/2004 Sigmoidoscopy ALLERGIES Adhesive Tape (Rosins), Cantaloupe, Erythromycin, Grass Pollen, Mold, Penicillins, Pollen, Prevacid [Lansoprazole], and Sulfa (Sulfonamide Antibiotics) MEDICATIONS famotidine (PEPCID) 20 mg tablet Take 1 tablet by mouth at bedtime as needed. denosumab (PROLIA) 60 mg/mL Inject 60 mg subcutaneously one time only. Gets injection every 6 months Magnesium Glycinate 120mg 3 at night Stress, blood sugar, thyroid/hormones/adrenals/sleep/en ergy/toxins/muscles/constipation/a sthma Work up to 3 capsules with meals at night - can cause loose stools metoprolol succinate ER (TOPROL XL) 25 mg 24 hr tablet Take half tablet in the morning and 1 tablet in the evening. esomeprazole (NEXIUM) 40 mg capsule Take 1 capsule by mouth daily before breakfast. 1/2 hr before meal. APIXABAN (ELIQUIS ORAL) Take by mouth twice daily. dofetilide (TIKOSYN) 250 mcg capsule Take 250 mcg by mouth twice daily. acetaminophen (TYLENOL) 325 mg tablet Take 650 mg by mouth every 6 hours as needed. calcium carbonate 600 mg-cholecalciferol 200 units 600 mg-5 mcg (200 unit) tab Take 1 tablet by mouth once daily. ergocalciferol(VITAMIN D 400 UNIT CAP) Take 1,000 Units by mouth once daily. meclizine (ANTIVERT) 25 mg tab Take 1 tablet by mouth every 6 hours as needed (dizziness). fludrocortisone (FLORINEF) 0.1 mg tablet Taking 3 times a week (Patient taking differently: Taking 1/2 a tablet 3 times a week) anastrozole (ARIMIDEX) 1 mg tablet Take 1 mg by mouth once daily. FAMILY HISTORY Problem Relation Age of Onset Arthritis Mother Hypertension Mother Cancer Mother uterine other (congestive heart failure) Mother other (renal disease) Mother decreased function, not needing dialysis yet other (dementia) Father other (alcoholic) Father may have been bipolar other (dementia) Paternal Grandmother Cancer Maternal Grandmother ? uterine vs. cervical (probably uterine?) Cancer Other paternal 1st cousin - brain cancer Cancer Sister 66 Lung Breast Cancer Sister 68 Social History Tobacco Use Smoking status: Never Smokeless tobacco: Never Vaping Use Vaping Use: Never used Substance Use Topics Alcohol use: Yes Alcohol/week: 2.5 standard drinks of alcohol Types: 1 Glasses of Wine (5oz) per week Comment: 1 glass per week Drug use: No PHYSICAL EXAM BP 130/80 Pulse 62 Resp 16 Wt 54.4 kg (120 lb) SpO2 99% BMI 18.79 kg/m General Appearance: well appearing, in no acute distress, alert Skin: Skin color, texture, turgor normal for age; Eyes: conjunctiva pink and moist, no icterus, sclera white, non-injected Lungs: Lungs clear to auscultation. No wheezing, rhonchi, rales. Heart: RRR without murmur, gallop, or rubs. No ectopy Health maintenance reviewed with patient: RSV Vaccine(1 - 1-dose 60+ series) Never done Advance Directive Discussion Never done Influenza Vaccine(1) due on 05/15/2023 Diabetes Screening due on 07/06/2026 DTaP,Tdap,Td Vaccine(3 - Td or Tdap) due on 06/30/2032 Bone Density Screening Completed Shingrix Vaccine Completed Covid-19 Vaccine Completed Pneumococcal Vaccine: 65+ Completed HPV Vaccine Aged Out Colorectal Cancer Screening Discontinued DATA REVIEWED: Most recent labs ASSESSMENT/PLAN: 1. Diarrhea, unspecified type - ICD9: 787.91, ICD10: R19.7 (primary diagnosis) - resolved with stopping gemtasa/ added to allergy list - follow up for any further concerns. 2. 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 She reports this is from having low blood pressures but I am curious if this was started for her low sodium Explained to patient to discuss with cardiology and neurology prior to stopping this. If it is stopped, she needs to get repeat blood work 1 week after stopping. 3. Hyponatremia - ICD9: 276.1, ICD10: E87.1 As above - BASIC METABOLIC PNL 4. Anxiety - ICD9: 300.00, ICD10: F41.9 - improving with counseling. Discussed option of buspar and also seeing psychiatry but patient declines at this time. - Reviewed concept of neurochemical imbalance wth depression/anxiety, treatment options and benefits of counseling in combination with medication. Also reviewed benefits of sleep hygeine, diet and exercise - Instructed patient to contact office or [id number] after-hours promptly should condition worsen or any new symptoms appear. - Counseling Center [facility] and after hours crisis line 5. Chronic pain of right knee - ICD9: 719.46, 338.29, ICD10: M25.561, G89.29 - CONSULT TO ORTHOPAEDICS 6. Need for influenza vaccination - ICD9: V04.81, ICD10: Z23 - INFLUENZA VACCINE, PRSV FREE, AGE 65+ YR, HIGH DOSE, QUADRIVALENT (FLUZONE HIGH-DOSE) Prescription instructions reviewed with patient as applicable. Potential red flag symptoms discussed with the patient. Reviewed appropriate action plan to take if red flag symptoms occur. Patient agreeable to treatment plan. Manisha Nichole APRN.NIKO documented in this encounter [facility] 06-23-2023 Note Patient Outreach (IN [facility]) JULIANNA TUCKER ([id number]) 1940 F NFR Date Time Provider Department 06/23/23 MAURICE HACKETT During your visit today, we recorded the following information about you: Allergies As of Date: 06/23/2023 Noted Allergy Reaction ADHESIVE TAPE (ROSINS) 11/11/2013 2 - Rash CANTALOUPE 08/12/2005 ERYTHROMYCIN 08/12/2005 8 - GI Upset GRASS POLLEN 08/13/2005 MOLD 08/13/2005 PENICILLINS 08/12/2005 2 - Rash 7 - Swelling POLLEN 08/13/2005 PREVACID (LANSOPRAZOLE) 05/02/2014 6 - Diarrhea Comments: All PPIs tried have given her diarrhea. SULFA (SULFONAMIDE ANTIBIOTICS) 08/12/2005 Comments: Pt uncertain if Sulfa allergy is accurate or not. Date Reviewed: 05/08/2023 Reviewed by: Cristina Munson Ma - Fully Assessed Visit Diagnosis:Medication management [Z79.899] Order(s):MAGNESIUM BLD [SQMG1] Order #: [id number] FUTURE Prescriptions as of 06/26/2023 - acetaminophen (TYLENOL) 325 mg tablet Take 650 mg by mouth every 6 hours as needed. - anastrozole (ARIMIDEX) 1 mg tablet Take 1 mg by mouth once daily. - APIXABAN (ELIQUIS ORAL) Take by mouth twice daily. - calcium carbonate 600 mg-cholecalciferol 200 units 600 mg-5 mcg (200 unit) tab Take 1 tablet by mouth once daily. - denosumab (PROLIA) 60 mg/mL Inject 60 mg subcutaneously one time only. Gets injection every 6 months - dofetilide (TIKOSYN) 250 mcg capsule Take 250 mcg by mouth twice daily. - ergocalciferol(VITAMIN D 400 UNIT CAP) Take 1,000 Units by mouth once daily. - esomeprazole (NEXIUM) 40 mg capsule Take 1 capsule by mouth daily before breakfast. 1/2 hr before meal. - famotidine (PEPCID) 20 mg tablet Take 1 tablet by mouth at bedtime as needed. - fludrocortisone (FLORINEF) 0.1 mg tablet Taking 3 times a week - Magnesium Glycinate 120mg 3 at night Stress, blood sugar, thyroid/hormones/adrenals/sleep/en ergy/toxins/muscles/constipation/a sthma Work up to 3 capsules with meals at night - can cause loose stools - meclizine (ANTIVERT) 25 mg tab Take 1 tablet by mouth every 6 hours as needed (dizziness). - metoprolol succinate ER (TOPROL XL) 25 mg 24 hr tablet Take half tablet in the morning and 1 tablet in the evening. Problem List As Of Date 06/23/2023 Noted Resolved Irritable Bowel Syndrome [K58.9] OSTEOPENIA [M89.9, M94.9] 07/04/2009 Esophageal reflux [K21.9] Other forms of migraine [346.8] 05/04/2007 Unspecified constipation [K59.00] Asymptomatic Postmenopausal Status (Age-Related* 10/28/2012 Osteoarth NOS-L/Leg [DGS5624] Palpitations [R00.2] 02/23/2009 Osteoporosis [M81.0] 07/04/2009 03/13/2012 Insomnia [G47.00] 02/11/2011 Hyponatremia [E87.1] 02/11/2011 Chronic fatigue disorder [G93.32] 02/11/2011 Paroxysmal atrial fibrillation (HCC) [I48.0] Mitral valve prolapse [I34.1] Closed fracture of lumbar vertebra (HCC) [S32.0*10/18/2012 Dizziness and giddiness [R42] 03/08/2013 Pain in joint, lower leg [M25.569] 04/27/2014 Right-sided low back pain with right-sided scia*07/24/2015 Neck pain [M54.2] 08/16/2015 Recurrent major depression in partial remission*12/20/2015 12/15/2018 Osteopenia [M85.80] 12/20/2015 Chronic right shoulder pain [M25.511, G89.29] 11/11/2016 Anxiety and depression [F41.9, F32.A] 02/05/2017 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 (syndrome of inappropriate ADH production*03/09/2018 Chronic pain of right knee [M25.561, G89.29] 10/06/2018 Hospital discharge follow-up [Z09] 11/18/2019 11/12/2022 Mild cognitive disorder [F09] 11/27/2020 Protein-calorie malnutrition, unspecified sever*01/14/2023 Encounter Status:Closed by PARKER HORN on 06/26/23 [facility] 05-08-2023 Miscellaneous Notes Pt notified of results via [employer]. Cris Richards Ma Please let patient know that I reviewed all of her lab workups and the only thing I want to repeat at the moment is to recheck her sodium level next week. Order for BMP placed. Thank you Manisha Nichole APRN.CNP documented in this encounter [facility] 05-08-2023 Miscellaneous Notes BEHAVIORAL HEALTH SOCIAL WORK CONSULT NOTE Service Date: May 08, 2023 Patient was identified by name and Patient: Julianna Tucker [address] [place] [address] (home) [phone] (cell) PCP: Maurice Hackett MD [address] [place] [address] [address] [facility] from: PCP Reason for referral: Resources Behavioral Health Resources: Psychology - talk therapy [facility] encounter type: Telephone Encounter Assessment: Referral made to engage patient experiencing anxiety . [facility] reviewed patient's chart and insurance to identify resources. Patient stated they are experiencing anxiety. Patient denies suicidal or homicidal ideation. Patient identified she is seeking therapy sooner than [facility]. [facility] will send resources to patient through [employer] per her request. Medications: Current Outpatient Medications on File Prior to Visit Medication Sig meclizine (ANTIVERT) 25 mg tab Take 1 tablet by mouth every 6 hours as needed (dizziness). famotidine (PEPCID) 20 mg tablet Take 1 tablet by mouth at bedtime as needed. fludrocortisone (FLORINEF) 0.1 mg tablet Taking 3 times a week (Patient taking differently: Taking 1/2 a tablet 3 times a week) denosumab (PROLIA) 60 mg/mL Inject 60 mg subcutaneously one time only. Gets injection every 6 months Magnesium Glycinate 120mg 3 at night Stress, blood sugar, thyroid/hormones/adrenals/sleep/en ergy/toxins/muscles/constipation/a sthma Work up to 3 capsules with meals at night - can cause loose stools metoprolol succinate ER (TOPROL XL) 25 mg 24 hr tablet Take half tablet in the morning and 1 tablet in the evening. esomeprazole (NEXIUM) 40 mg capsule Take 1 capsule by mouth daily before breakfast. 1/2 hr before meal. anastrozole (ARIMIDEX) 1 mg tablet Take 1 mg by mouth once daily. APIXABAN (ELIQUIS ORAL) Take by mouth twice daily. dofetilide (TIKOSYN) 250 mcg capsule Take 250 mcg by mouth twice daily. acetaminophen (TYLENOL) 325 mg tablet Take 650 mg by mouth every 6 hours as needed. calcium carbonate 600 mg-cholecalciferol 200 units 600 mg-5 mcg (200 unit) tab Take 1 tablet by mouth once daily. ergocalciferol(VITAMIN D 400 UNIT CAP) Take 1,000 Units by mouth once daily. No current facility-administered medications on file prior to visit. Curbside: No Screening Tools: No Substance Use / Abuse: No Outcome / Plan / Referrals: Attempts to Outreach: 1 attempt Referral made: Psychology - External Psychology-External referral type: Therapy Reason for external referral: Wait times at [facility] too long Final Disposition: Resources given Patient Discharged?: Yes Patient reported that caregiver was able to meet their needs today?: Yes Internal Referrals : No Reason for External Referrals : Wait is too long Intervention: Supportive Listening Provided referral information Resources Provided: [facility] Time Spent: 15 minutes JIGNESH Kuo-S documented in this encounter [facility] 05-08-2023 Note HNO ID: [id number] Author: Manisha Nichole APRN.TECHNICAL SERVICES COORDINATOR Service: ? Author Type: Nurse Practitioner Type: Progress Notes Filed: 05/08/2023 1:12 PM Note Text: CC: Patient presents with: Medicare Wellness Exam: Annual Medicare Wellness HPI Julianna Tucker is a 83 year old female who presents today for medicare wellness but patient with concerns so visit focused on this. Since March, had diarrhea for 6 weeks but has been improving. Possibly from usage of gemtasa as ordered by urology. Recently has stopped the gemtasa and that is when diarrhea has started to improve. Has had a large amount of fatigue, more than her chronic fatigue. Has been worked up thoroughly by PCP over the last years without any cause of fatigue. Did see functional medicine for this but no improvement was found. Now seeing neurology for work up on balance issues. Has a diagnostic nerve study in May to further evaluate this. Has seen physical therapy for balance and currently for chronic urinary incontinence. Also reports she is very easily nauseated with chronic ease of motion sickness. Has seen ENT and told nothing they could do. Uses meclizine for this which is helpful. Over the last 2 months she has been in the ER twice for fluids from the diarrhea and with palpitations and saw her cardiology group. Sees [facility] for history of A-fib. Had a cardiac workup and states everything was ok and sees them again in June. Has been told by cardiology previously they feel anxiety is affecting her symptoms and was on zoloft for a few years but was taken off of it because it made her chronic hyponatremia worse. History of depression at various times in her life. With her chronic concerns and recent issues, she isn't sure if she needs to see a counselor or psychiatry. 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 Also in the process of down sizing her home and going through to get rid of unneeded things. Falls asleep easily and early, but difficulty staying asleep then unable to get back to sleep. No alcohol usage. No drug usage. Denies any thoughts of suicide or self harm. Indigestion: Also has noticed an increase in this with all recent issues and requesting refill of famotidine. REVIEW OF SYSTEMS See HPI CP PHQ9 05/08/2023 Little interest or pleasure 1 - Several days Feeling down, depressed, hopeless 2 - More than half the days Trouble falling or staying asleep, sleeping too much 2 - More than half the days Feeling tired, having little energy 3 - Nearly every day Poor appetite or overeating 1 - Several days Feeling bad about yourself, failure or you have let yourself/family down 2 - More than half the days Trouble concentrating on things 1 - Several days Moving or speaking so slowly, or fidgety or restless 0 - Not at all Thoughts that you would be better off , or of hurting yourself in some way 0 - Not at all How difficult have these problems made things Very difficult Interpretation of Total Score 10-14 Moderate depression JEFFERY-7 ANXIETY SCALE 05/08/2023 FEELING NERVOUS,ANXIOUS,OR ON EDGE 1 Several days NOT BEING ABLE TO STOP OR CONTROL WORRYING 2 Over half the days WORRYING TOO MUCH ABOUT DIFFERENT THINGS 2 Over half the days TROUBLE RELAXING 1 Several days BEING SO RESTLESS THAT IT'S HARD TO SIT STILL 1 Several days BEING EASILY ANNOYED OR IRRITABLE 0 Not at all sure FEELING AFRAID IF SOMETHING AWFUL MIGHT HAPPEN 2 Over half the days GAD7 SCORE 9 IF YOU CHECKED OFF ANY PROBLEMS Somewhat difficult PAST MEDICAL HISTORY Diagnosis Date Abnormality of gait 03/08/2013 Allergic rhinitis due to other allergen Atrial fibrillation (HCC) Chondrocalcinosis, cause unspecified, involving lower leg(712.36) 04/25/2008 CPPD right leg (on xray) - has never had an acute pseudogout attack Chronic fatigue Compression fracture of L1 lumbar vertebra (HCC) Concussion Depression Diverticulosis of colon (without mention of hemorrhage) Diverticulosis of large intestine Duodenitis without mention of hemorrhage Dysphagia Dysphagia, unspecified(787.20) 08/01/2010 Esophageal reflux rare symptoms, had more pain on Prevacid than off it Esophagitis, unspecified Fatigue 02/11/2011 Inflamed seborrheic keratosis 04/20/2008 Ingrown toenail 10/07/2010 Irritable bowel syndrome gets constipated easily, also lactose intolerant Loss of weight 02/23/2009 Lumbago 10/18/2012 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 right knee Osteoporosis 07/04/2009 osteopenia 06/15 (more content not included)... [facility] 05-08-2023 History of Present illness Narrative CC: Patient presents with: Medicare Wellness Exam: Annual Medicare Wellness HPI Julianna Tucker is a 83 year old female who presents today for medicare wellness but patient with concerns so visit focused on this. Since March, had diarrhea for 6 weeks but has been improving. Possibly from usage of gemtasa as ordered by urology. Recently has stopped the gemtasa and that is when diarrhea has started to improve. Has had a large amount of fatigue, more than her chronic fatigue. Has been worked up thoroughly by PCP over the last years without any cause of fatigue. Did see functional medicine for this but no improvement was found. Now seeing neurology for work up on balance issues. Has a diagnostic nerve study in May to further evaluate this. Has seen physical therapy for balance and currently for chronic urinary incontinence. Also reports she is very easily nauseated with chronic ease of motion sickness. Has seen ENT and told nothing they could do. Uses meclizine for this which is helpful. Over the last 2 months she has been in the ER twice for fluids from the diarrhea and with palpitations and saw her cardiology group. Sees [facility] for history of A-fib. Had a cardiac workup and states everything was ok and sees them again in June. Has been told by cardiology previously they feel anxiety is affecting her symptoms and was on zoloft for a few years but was taken off of it because it made her chronic hyponatremia worse. History of depression at various times in her life. With her chronic concerns and recent issues, she isn't sure if she needs to see a counselor or psychiatry. 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 Also in the process of down sizing her home and going through to get rid of unneeded things. Falls asleep easily and early, but difficulty staying asleep then unable to get back to sleep. No alcohol usage. No drug usage. Denies any thoughts of suicide or self harm. Indigestion: Also has noticed an increase in this with all recent issues and requesting refill of famotidine. REVIEW OF SYSTEMS See HPI CP PHQ9 05/08/2023 Little interest or pleasure 1 - Several days Feeling down, depressed, hopeless 2 - More than half the days Trouble falling or staying asleep, sleeping too much 2 - More than half the days Feeling tired, having little energy 3 - Nearly every day Poor appetite or overeating 1 - Several days Feeling bad about yourself, failure or you have let yourself/family down 2 - More than half the days Trouble concentrating on things 1 - Several days Moving or speaking so slowly, or fidgety or restless 0 - Not at all Thoughts that you would be better off , or of hurting yourself in some way 0 - Not at all How difficult have these problems made things Very difficult Interpretation of Total Score 10-14 Moderate depression JEFFERY-7 ANXIETY SCALE 05/08/2023 FEELING NERVOUS,ANXIOUS,OR ON EDGE 1 Several days NOT BEING ABLE TO STOP OR CONTROL WORRYING 2 Over half the days WORRYING TOO MUCH ABOUT DIFFERENT THINGS 2 Over half the days TROUBLE RELAXING 1 Several days BEING SO RESTLESS THAT IT'S HARD TO SIT STILL 1 Several days BEING EASILY ANNOYED OR IRRITABLE 0 Not at all sure FEELING AFRAID IF SOMETHING AWFUL MIGHT HAPPEN 2 Over half the days GAD7 SCORE 9 IF YOU CHECKED OFF ANY PROBLEMS Somewhat difficult PAST MEDICAL HISTORY Diagnosis Date Abnormality of gait 03/08/2013 Allergic rhinitis due to other allergen Atrial fibrillation (HCC) Chondrocalcinosis, cause unspecified, involving lower leg(712.36) 04/25/2008 CPPD right leg (on xray) - has never had an acute pseudogout attack Chronic fatigue Compression fracture of L1 lumbar vertebra (HCC) Concussion Depression Diverticulosis of colon (without mention of hemorrhage) Diverticulosis of large intestine Duodenitis without mention of hemorrhage Dysphagia Dysphagia, unspecified(787.20) 08/01/2010 Esophageal reflux rare symptoms, had more pain on Prevacid than off it Esophagitis, unspecified Fatigue 02/11/2011 Inflamed seborrheic keratosis 04/20/2008 Ingrown toenail 10/07/2010 Irritable bowel syndrome gets constipated easily, also lactose intolerant Loss of weight 02/23/2009 Lumbago 10/18/2012 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 right knee Osteoporosis 07/04/2009 osteopenia 06/2011 Other chronic dermatitis due to solar radiation 04/20/2008 Other forms of migraine resolved Pain in joint, pelvic region and thigh 04/27/2014 Recurrent UTI SOLAR LENGINES////DYSCHROMIA OTHER 04/20/2008 Tachycardia tachycardia, atrial flutter Unspecified constipation Vitamin D deficiency PAST SURGICAL HISTORY Procedure Laterality Date CATHETER, ABLATION 08/19/2013 for afib COLONOSCOPY FLX DX W/COLLJ SPEC WHEN PFRMD 07/23/2004 repeat due 2013 COLONOSCOPY FLX DX W/COLLJ SPEC WHEN PFRMD 06/01/2014 Colonoscopy COLONOSCOPY SCREENING 2013 COLONOSCOPY SCREENING 2018 DILATION & CURETTAGE DX&/THER NONOBSTETRIC 1989 EGD TRANSORAL BIOPSY SINGLE/MULTIPLE EGD TRANSORAL BIOPSY SINGLE/MULTIPLE 08/01/2010 ESOPHAGOGASTRODUODENOSCOPY TRANSORAL DIAGNOSTIC 06/01/2014 EGD NIPPLE EXPLORATION 09/27/2009 LEFT, surgical bx OOPHORECTOMY PARTIAL/TOTAL UNI/BI AGE 26 Oophorectomy-LEFT PAST SURGICAL HISTORY OF Left 04/2017 breast mastectomy SIGMOIDOSCOPY FLX DX W/COLLJ SPEC BR/WA IF PFRMD 07/23/2004 Sigmoidoscopy ALLERGIES Adhesive Tape (Rosins), Cantaloupe, Erythromycin, Grass Pollen, Mold, Penicillins, Pollen, Prevacid [Lansoprazole], and Sulfa (Sulfonamide Antibiotics) MEDICATIONS vibegron (GEMTESA) 75 mg tablet Take 75 mg by mouth once daily. famotidine (PEPCID) 20 mg tablet take 1 tablet by mouth at bedtime if needed meclizine (ANTIVERT) 25 mg tab Take 1 tablet by mouth every 6 hours as needed (dizziness). fludrocortisone (FLORINEF) 0.1 mg tablet Taking 3 times a week (Patient taking differently: Taking 1/2 a tablet 3 times a week) denosumab (PROLIA) 60 mg/mL Inject 60 mg subcutaneously one time only. Gets injection every 6 months Magnesium Glycinate 120mg 3 at night Stress, blood sugar, thyroid/hormones/adrenals/sleep/en ergy/toxins/muscles/constipation/a sthma Work up to 3 capsules with meals at night - can cause loose stools metoprolol succinate ER (TOPROL XL) 25 mg 24 hr tablet Take half tablet in the morning and 1 tablet in the evening. esomeprazole (NEXIUM) 40 mg capsule Take 1 capsule by mouth daily before breakfast. 1/2 hr before meal. anastrozole (ARIMIDEX) 1 mg tablet Take 1 mg by mouth once daily. APIXABAN (ELIQUIS ORAL) Take by mouth twice daily. dofetilide (TIKOSYN) 250 mcg capsule Take 250 mcg by mouth twice daily. acetaminophen (TYLENOL) 325 mg tablet Take 650 mg by mouth every 6 hours as needed. calcium carbonate 600 mg-cholecalciferol 200 units 600 mg-5 mcg (200 unit) tab Take 1 tablet by mouth once daily. ergocalciferol(VITAMIN D 400 UNIT CAP) Take 1,000 Units by mouth once daily. FAMILY HISTORY Problem Relation Age of Onset Arthritis Mother Hypertension Mother Cancer Mother uterine other (congestive heart failure) Mother other (renal disease) Mother decreased function, not needing dialysis yet other (dementia) Father other (alcoholic) Father may have been bipolar other (dementia) Paternal Grandmother Cancer Maternal Grandmother ? uterine vs. cervical (probably uterine?) Cancer Other paternal 1st cousin - brain cancer Cancer Sister 66 Lung Breast Cancer Sister 68 Social History Tobacco Use Smoking status: Never Smokeless tobacco: Never Vaping Use Vaping Use: Never used Substance Use Topics Alcohol use: Yes Alcohol/week: 2.5 standard drinks of alcohol Types: 1 Glasses of Wine (5oz) per week Comment: 1 glass per week Drug use: No PHYSICAL EXAM BP 128/80 Pulse 60 Temp 36.3 C (97.4 F) (Temporal) Resp 16 Wt 52.6 kg (116 lb) BMI 18.17 kg/m General Appearance: well appearing, in no acute distress, alert Pysch: mood and affect broad and appropriate Skin: Skin color, texture, turgor normal for age; Eyes: conjunctiva pink and moist, no icterus, sclera white, non-injected Neck: Thyroid normal size and symmetric without palpable nodules, Neck supple, No adenopathy Lymph nodes: No cervical lymphadenopathy and No supraclavicular lymphadenopathy Lungs: Lungs clear to auscultation. No wheezing, rhonchi, rales. Heart: RRR without murmur, gallop, or rubs. No ectopy Abdomen: Abdomen soft, non-tender. Bowel sounds normal. No masses, organomegaly Health maintenance reviewed with patient: ADVANCE DIRECTIVE DISCUSSION Never done INFLUENZA(1) due on 05/15/2023 DIABETES SCREEN due on 04/20/2026 DTAP,TDAP,TD(3 - Td or Tdap) due on 06/30/2032 BONE DENSITY Completed SHINGRIX VACCINE Completed COVID-19 VACCINE Completed PNEUMOCOCCAL: 65+ Completed HPV VACCINE Aged Out COLORECTAL CANCER SCREENING Discontinued DATA REVIEWED: Most recent labs and imaging results. ASSESSMENT/PLAN: 1. Anxiety and depression - ICD9: 300.00, 311, ICD10: F41.9, F32.A (primary diagnosis) - with hyponatremia and patient has concerns of interaction with her cardiac meds/issues Decision made not to start medication at this time - patient needs to start counseling - CONSULT TO [facility] - follow up in 6 weeks. - Reviewed concept of neurochemical imbalance wth depression/anxiety, treatment options and benefits of counseling in combination with medication. Also reviewed benefits of sleep hygeine, diet and exercise - Instructed patient to contact office or [id number] after-hours promptly should condition worsen or any new symptoms appear. - Counseling Center [facility] and after hours crisis line 2. Nausea - ICD9: 787.02, ICD10: R11.0 - related to motion sickness - MECLIZINE 25 MG TABLET 3. Dizziness - ICD9: 780.4, ICD10: R42 As above - MECLIZINE 25 MG TABLET 4. Diarrhea, unspecified type - ICD9: 787.91, ICD10: R19.7 - improving - follow up in 6 weeks to evaluate if this resolves - follow up earlier if this increases or for any other concerns. 5. Paroxysmal atrial fibrillation (HCC) - ICD9: 427.31, ICD10: I48.0 - controlled at this time on metoprolol and Tikosyn for rate/rhythm control. On eliquis for dvt prevention - continue medications and recommendations by cardiology. 6. Hyponatremia - ICD9: 276.1, ICD10: E87.1 - Last NA in ER was very low. Needs rechecked. - BMP 7. Chronic fatigue disorder - ICD9: 780.71, ICD10: G93.32 - thorough work up completed and has seen funcitonal medicine without cause found - possibly increased with recent illness and underlying depression. Continue with counseling. - follow up in 6 weeks. 8. Gastroesophageal reflux disease, unspecified whether esophagitis present - ICD9: 530.81, ICD10: K21.9 - Discussed lifestyle modifications including losing weight, limiting caffeine, no meals three hours before sleep, and head of bed elevation - famotidine reordered, continue PPI Prescription instructions reviewed with patient as applicable. Potential red flag symptoms discussed with the patient. Reviewed appropriate action plan to take if red flag symptoms occur. Patient agreeable to treatment plan. Manisha Nichole APRN.CNP documented in this encounter [facility] 04-21-2023 Note Patient Outreach (IN [facility]) JULIANNA TUCKER ([id number]) 1940 F NFR Date Time Provider Department 04/21/23 MAURICE HACKETT During your visit today, we recorded the following information about you: Allergies As of Date: 04/21/2023 Noted Allergy Reaction ADHESIVE TAPE (ROSINS) 11/11/2013 2 - Rash CANTALOUPE 08/12/2005 ERYTHROMYCIN 08/12/2005 8 - GI Upset GRASS POLLEN 08/13/2005 MOLD 08/13/2005 PENICILLINS 08/12/2005 2 - Rash 7 - Swelling POLLEN 08/13/2005 PREVACID (LANSOPRAZOLE) 05/02/2014 6 - Diarrhea Comments: All PPIs tried have given her diarrhea. SULFA (SULFONAMIDE ANTIBIOTICS) 08/12/2005 Comments: Pt uncertain if Sulfa allergy is accurate or not. Date Reviewed: 04/16/2023 Reviewed by: Carla Benites LPN - Fully Assessed Visit Diagnosis:Medication management [Z79.899] Order(s):MAGNESIUM BLD [SQMG1] Order #: [id number] FUTURE Prescriptions as of 04/24/2023 - vibegron (GEMTESA) 75 mg tablet Take 75 mg by mouth once daily. - famotidine (PEPCID) 20 mg tablet take 1 tablet by mouth at bedtime if needed - meclizine (ANTIVERT) 25 mg tab Take 1 tablet by mouth every 6 hours as needed (dizziness). - fludrocortisone (FLORINEF) 0.1 mg tablet Taking 3 times a week - denosumab (PROLIA) 60 mg/mL Inject 60 mg subcutaneously one time only. Gets injection every 6 months - Magnesium Glycinate 120mg 3 at night Stress, blood sugar, thyroid/hormones/adrenals/sleep/en ergy/toxins/muscles/constipation/a sthma Work up to 3 capsules with meals at night - can cause loose stools - metoprolol succinate ER (TOPROL XL) 25 mg 24 hr tablet Take half tablet in the morning and 1 tablet in the evening. - esomeprazole (NEXIUM) 40 mg capsule Take 1 capsule by mouth daily before breakfast. 1/2 hr before meal. - anastrozole (ARIMIDEX) 1 mg tablet Take 1 mg by mouth once daily. - APIXABAN (ELIQUIS ORAL) Take by mouth twice daily. - dofetilide (TIKOSYN) 250 mcg capsule Take 250 mcg by mouth twice daily. - acetaminophen (TYLENOL) 325 mg tablet Take 650 mg by mouth every 6 hours as needed. - calcium carbonate 600 mg-cholecalciferol 200 units 600 mg-5 mcg (200 unit) tab Take 1 tablet by mouth once daily. - ergocalciferol(VITAMIN D 400 UNIT CAP) Take 1,000 Units by mouth once daily. Problem List As Of Date 04/21/2023 Noted Resolved Irritable Bowel Syndrome [K58.9] OSTEOPENIA [M89.9, M94.9] 07/04/2009 Esophageal reflux [K21.9] Other forms of migraine [346.8] 05/04/2007 Unspecified constipation [K59.00] Asymptomatic Postmenopausal Status (Age-Related* 10/28/2012 Osteoarth NOS-L/Leg [EHH4531] Palpitations [R00.2] 02/23/2009 Osteoporosis [M81.0] 07/04/2009 03/13/2012 Insomnia [G47.00] 02/11/2011 Hyponatremia [E87.1] 02/11/2011 Chronic fatigue disorder [G93.32] 02/11/2011 Paroxysmal atrial fibrillation (HCC) [I48.0] Mitral valve prolapse [I34.1] Closed fracture of lumbar vertebra (HCC) [S32.0*10/18/2012 Dizziness and giddiness [R42] 03/08/2013 Pain in joint, lower leg [M25.569] 04/27/2014 Right-sided low back pain with right-sided scia*07/24/2015 Neck pain [M54.2] 08/16/2015 Recurrent major depression in partial remission*12/20/2015 12/15/2018 Osteopenia [M85.80] 12/20/2015 Chronic right shoulder pain [M25.511, G89.29] 11/11/2016 Anxiety and depression [F41.9, F32.A] 02/05/2017 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 (syndrome of inappropriate ADH production*03/09/2018 Chronic pain of right knee [M25.561, G89.29] 10/06/2018 Hospital discharge follow-up [Z09] 11/18/2019 11/12/2022 Mild cognitive disorder [F09] 11/27/2020 Protein-calorie malnutrition, unspecified sever*01/14/2023 Encounter Status:Closed by PARKER HORN on 04/24/23 [facility] 04-21-2023 Miscellaneous Notes Patient calling in, given below results, verbalized understanding. Faith Hauser LPN Called and left a voicemail for the Patient to call back and ask for a nurse to receive the providers message. Josie Blankenship RN Please let patient know stool testing is negative. XR shows some stool burden but no obstruction documented in this encounter [facility] 04-20-2023 Note HNO ID: [id number] Author: Jose Rangel APRN.DOBIE MAN Service: ? Author Type: Nurse Specialist Type: Progress Notes Filed: 04/20/2023 4:41 PM Note Text: canceled [facility] 04-20-2023 History of Present illness Narrative canceled documented in this encounter [facility] 04-17-2023 Miscellaneous Notes Pt called and is notified of providers message and instructions. Pt voices understanding. Pt was also asking about abdomen x-ray, I let her know that was still in process. Pt states a year ago she had issues with diarrhea and it was an intestinal parasite. I let her know provider did test for ova and parasites, but that the test was still in process. Josie Blankenship RN It is possible that the mold is what is making her sick. I would recommend staying with friends or family until the company can come remove/treat it.If they can not she should avoid that area as much as possible and open windows to ensure good ventilation. Pt called and is notified of providers results and instructions. Pt voices understanding, she states she always has trouble with her sodium. She is drinking Powerade right now, but she will get what the provider says and get her labs on Thursday. Pt reports she is feeling a bit woozy when she gets up today. She states he and her were cleaning out a closet yesterday that they found out they have a mold problem in. She states the mold was all different colors, It looked like a modern painting on the butler. . She reports the mold remediation people won't be out until next week. I asked her is there was any way they could stay away from the area the mold was in and she said it's in the front cruz closet which opens to the living and dining area, which is where her and her spend most of her time. I asked Pt if there was somewhere they could go stay for a while to get away from the mold, and she was going to check with some friends. Please call and advise. Josie Blankenship RN Please let patient know her sodium is slightly lower than her normal. I would like her to get a n electrolyte drink like liquid IV or pedialyte and drink 2 glasses of that for the next couple days and we will recheck her labs on Thursday. documented in this encounter [facility] 04-16-2023 Note HNO ID: [id number] Author: Diana Meadows RT(Tessie) Service: Radiology Author Type: Technologist Type: Progress Notes Filed: 04/16/2023 9:01 AM Note Text: Radiology Service Progress Note PATIENT NAME: Julianna Tucker DATE OF SERVICE: April 16, 2023 TIME: 8:48 AM PATIENT IDENTITY VERIFICATION COMPLETED USING TWO (2) IDENTIFIERS: Name and Date of confirmed by patient verbally. FALL SCREENING: Has the patient had 2 falls in the last year or 1 fall with injury or currently using an Ambulatory Assistive Device (Walker, Cane, Wheelchair, Crutches, etc.)? No PATIENT GENDER DATA: Female. status: : No status: NO. PATIENT RELEVANT IMPLANT DATA REVIEWED: Not Applicable RADIOLOGY DEPARTMENT: General X-ray: Exam(s) Completed: Abdomen X-Ray: Abdomen PERIPHERAL IV DATA: Not applicable SIGNED BY: RT Patrick(Tessie) April 16, 2023 8:48 AM [facility] 04-16-2023 Note HNO ID: [id number] Author: Julio Downey APRN.TECHNICAL SERVICES COORDINATOR Service: ? Author Type: Nurse Practitioner Type: Progress Notes Filed: 04/16/2023 8:28 AM Note Text: Chief Complaint No chief complaint on file. HPI Julianna Tucker is a 83 year old female who presents here today for Above Complaints.. Patient presents for ER follow up. Patient was seen at the ER last and was treated for dehydration. Patient was having diarrhea during this time. Patient reports she was feeling better on Thursday but the diarrhea has recurred. Denies abdominal pain, nausea, vomiting. Past medical history, appointments, medications, allergies reviewed. 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) - has never had an acute pseudogout attack Chronic fatigue Compression fracture of L1 lumbar vertebra (HCC) Concussion Depression Diverticulosis of colon (without mention of hemorrhage) Diverticulosis of large intestine Duodenitis without mention of hemorrhage Dysphagia Dysphagia, unspecified(787.20) 08/01/2010 Esophageal reflux rare symptoms, had more pain on Prevacid than off it Esophagitis, unspecified Fatigue 02/11/2011 Inflamed seborrheic keratosis 04/20/2008 Ingrown toenail 10/07/2010 Irritable bowel syndrome gets constipated easily, also lactose intolerant Loss of weight 02/23/2009 Lumbago 10/18/2012 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 right knee Osteoporosis 07/04/2009 osteopenia 06/2011 Other chronic dermatitis due to solar radiation 04/20/2008 Other forms of migraine resolved Pain in joint, pelvic region and thigh 04/27/2014 Recurrent UTI SOLAR LENGINES////DYSCHROMIA OTHER 04/20/2008 Tachycardia tachycardia, atrial flutter Unspecified constipation Vitamin D deficiency Previous Surgical History PAST SURGICAL HISTORY Procedure Laterality Date CATHETER, ABLATION 08/19/2013 for afib COLONOSCOPY FLX DX W/COLLJ SPEC WHEN PFRMD 07/23/2004 repeat due 2013 COLONOSCOPY FLX DX W/COLLJ SPEC WHEN PFRMD 06/01/2014 Colonoscopy COLONOSCOPY SCREENING 2013 COLONOSCOPY SCREENING 2018 DILATION AND CURETTAGE DXAND/THER NONOBSTETRIC 1989 EGD TRANSORAL BIOPSY SINGLE/MULTIPLE EGD TRANSORAL BIOPSY SINGLE/MULTIPLE 08/01/2010 ESOPHAGOGASTRODUODENOSCOPY TRANSORAL DIAGNOSTIC 06/01/2014 EGD NIPPLE EXPLORATION 09/27/2009 LEFT, surgical bx OOPHORECTOMY PARTIAL/TOTAL UNI/BI AGE 26 Oophorectomy-LEFT PAST SURGICAL HISTORY OF Left 04/2017 breast mastectomy SIGMOIDOSCOPY FLX DX W/COLLJ SPEC BR/WA IF PFRMD 07/23/2004 Sigmoidoscopy Family History FAMILY HISTORY Problem Relation Age of Onset Arthritis Mother Hypertension Mother Cancer Mother uterine other (congestive heart failure) Mother other (renal disease) Mother decreased function, not needing dialysis yet other (dementia) Father other (alcoholic) Father may have been bipolar other (dementia) Paternal Grandmother Cancer Maternal Grandmother ? uterine vs. cervical (probably uterine?) Cancer Other paternal 1st cousin - brain cancer Cancer Sister 66 Lung Breast Cancer Sister 68 Patient Allergies ALLERGIES Allergen Reactions Adhesive Tape (Selena* Rash Cantaloupe Erythromycin GI Upset Grass Pollen Mold Penicillins Rash, Swelling Pollen Prevacid [Lansopraz* Diarrhea All PPIs tried have given her diarrhea. Sulfa (Sulfonamide * Pt uncertain if Sulfa allergy is accurate or not. Current Medications Current Outpatient Medications on File Prior to Visit Medication Sig vibegron (GEMTESA) 75 mg tablet Take 75 mg by mouth once daily. famotidine (PEPCID) 20 mg tablet take 1 tablet by mouth at bedtime if needed meclizine (ANTIVERT) 25 mg tab Take 1 tablet by mouth every 6 hours as needed (dizziness). fludrocortisone (FLORINEF) 0.1 mg tablet Taking 3 times a week (Patient taking differently: Taking 1/2 a tablet 3 times a week) denosumab (PROLIA) 60 mg/mL Inject 60 mg subcutaneously one time only. Gets injection every 6 months Magnesium Glycinate 120mg 3 at night Stress, blood sugar, thyroid/hormones/adrenals/sleep/en ergy/toxins/muscles/constipation/a sthma Work up to 3 capsules with meals at night - can cause loose stools metoprolol succinate ER (TOPROL XL) 25 mg 24 hr tablet Take half tablet in the morning and 1 tablet in the evening. esomeprazole (NEXIUM) 40 mg capsule Take 1 capsule by mouth daily before breakfast. 1/2 hr before meal. anastrozole (ARIMI (more content not included)... [facility] 04-16-2023 History of Present illness Narrative Chief Complaint No chief complaint on file. HPI Julianna Tucker is a 83 year old female who presents here today for Above Complaints.. Patient presents for ER follow up. Patient was seen at the ER last and was treated for dehydration. Patient was having diarrhea during this time. Patient reports she was feeling better on Thursday but the diarrhea has recurred. Denies abdominal pain, nausea, vomiting. Past medical history, appointments, medications, allergies reviewed. 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) - has never had an acute pseudogout attack Chronic fatigue Compression fracture of L1 lumbar vertebra (HCC) Concussion Depression Diverticulosis of colon (without mention of hemorrhage) Diverticulosis of large intestine Duodenitis without mention of hemorrhage Dysphagia Dysphagia, unspecified(787.20) 08/01/2010 Esophageal reflux rare symptoms, had more pain on Prevacid than off it Esophagitis, unspecified Fatigue 02/11/2011 Inflamed seborrheic keratosis 04/20/2008 Ingrown toenail 10/07/2010 Irritable bowel syndrome gets constipated easily, also lactose intolerant Loss of weight 02/23/2009 Lumbago 10/18/2012 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 right knee Osteoporosis 07/04/2009 osteopenia 06/2011 Other chronic dermatitis due to solar radiation 04/20/2008 Other forms of migraine resolved Pain in joint, pelvic region and thigh 04/27/2014 Recurrent UTI SOLAR LENGINES////DYSCHROMIA OTHER 04/20/2008 Tachycardia tachycardia, atrial flutter Unspecified constipation Vitamin D deficiency Previous Surgical History PAST SURGICAL HISTORY Procedure Laterality Date CATHETER, ABLATION 08/19/2013 for afib COLONOSCOPY FLX DX W/COLLJ SPEC WHEN PFRMD 07/23/2004 repeat due 2013 COLONOSCOPY FLX DX W/COLLJ SPEC WHEN PFRMD 06/01/2014 Colonoscopy COLONOSCOPY SCREENING 2013 COLONOSCOPY SCREENING 2018 DILATION & CURETTAGE DX&/THER NONOBSTETRIC 1989 EGD TRANSORAL BIOPSY SINGLE/MULTIPLE EGD TRANSORAL BIOPSY SINGLE/MULTIPLE 08/01/2010 ESOPHAGOGASTRODUODENOSCOPY TRANSORAL DIAGNOSTIC 06/01/2014 EGD NIPPLE EXPLORATION 09/27/2009 LEFT, surgical bx OOPHORECTOMY PARTIAL/TOTAL UNI/BI AGE 26 Oophorectomy-LEFT PAST SURGICAL HISTORY OF Left 04/2017 breast mastectomy SIGMOIDOSCOPY FLX DX W/COLLJ SPEC BR/WA IF PFRMD 07/23/2004 Sigmoidoscopy Family History FAMILY HISTORY Problem Relation Age of Onset Arthritis Mother Hypertension Mother Cancer Mother uterine other (congestive heart failure) Mother other (renal disease) Mother decreased function, not needing dialysis yet other (dementia) Father other (alcoholic) Father may have been bipolar other (dementia) Paternal Grandmother Cancer Maternal Grandmother ? uterine vs. cervical (probably uterine?) Cancer Other paternal 1st cousin - brain cancer Cancer Sister 66 Lung Breast Cancer Sister 68 Patient Allergies ALLERGIES Allergen Reactions Adhesive Tape (Selena* Rash Cantaloupe Erythromycin GI Upset Grass Pollen Mold Penicillins Rash, Swelling Pollen Prevacid [Lansopraz* Diarrhea All PPIs tried have given her diarrhea. Sulfa (Sulfonamide * Pt uncertain if Sulfa allergy is accurate or not. Current Medications Current Outpatient Medications on File Prior to Visit Medication Sig vibegron (GEMTESA) 75 mg tablet Take 75 mg by mouth once daily. famotidine (PEPCID) 20 mg tablet take 1 tablet by mouth at bedtime if needed meclizine (ANTIVERT) 25 mg tab Take 1 tablet by mouth every 6 hours as needed (dizziness). fludrocortisone (FLORINEF) 0.1 mg tablet Taking 3 times a week (Patient taking differently: Taking 1/2 a tablet 3 times a week) denosumab (PROLIA) 60 mg/mL Inject 60 mg subcutaneously one time only. Gets injection every 6 months Magnesium Glycinate 120mg 3 at night Stress, blood sugar, thyroid/hormones/adrenals/sleep/en ergy/toxins/muscles/constipation/a sthma Work up to 3 capsules with meals at night - can cause loose stools metoprolol succinate ER (TOPROL XL) 25 mg 24 hr tablet Take half tablet in the morning and 1 tablet in the evening. esomeprazole (NEXIUM) 40 mg capsule Take 1 capsule by mouth daily before breakfast. 1/2 hr before meal. anastrozole (ARIMIDEX) 1 mg tablet Take 1 mg by mouth once daily. APIXABAN (ELIQUIS ORAL) Take by mouth twice daily. dofetilide (TIKOSYN) 250 mcg capsule Take 250 mcg by mouth twice daily. acetaminophen (TYLENOL) 325 mg tablet Take 650 mg by mouth every 6 hours as needed. calcium carbonate 600 mg-cholecalciferol 200 units 600 mg-5 mcg (200 unit) tab Take 1 tablet by mouth once daily. ergocalciferol(VITAMIN D 400 UNIT CAP) Take 1,000 Units by mouth once daily. No current facility-administered medications on file prior to visit. Social History Social History Tobacco Use Smoking status: Never Smokeless tobacco: Never Vaping Use Vaping Use: Never used Substance Use Topics Alcohol use: Yes Alcohol/week: 2.5 standard drinks of alcohol Types: 1 Glasses of Wine (5oz) per week Comment: 1 glass per week Drug use: No Review of Symptoms REVIEW OF SYSTEMS SEE HPI EXAM: There were no vitals taken for this visit. General Appearance: Well appearing, alert, in no acute distress, well-hydrated, well nourished.. Abdomen: Normal abdominal exam, Positive findings: tenderness mild generalized Health Maintenance List ADVANCE DIRECTIVE DISCUSSION Never done INFLUENZA(1) due on 05/15/2023 DIABETES SCREEN due on 08/25/2025 DTAP,TDAP,TD(3 - Td or Tdap) due on 06/30/2032 BONE DENSITY Completed SHINGRIX VACCINE Completed COVID-19 VACCINE Completed PNEUMOCOCCAL: 65+ Completed HPV VACCINE Aged Out COLORECTAL CANCER SCREENING Discontinued ASSESSMENT/PLAN: 1. Diarrhea, unspecified type - ICD9: 787.91, ICD10: R19.7 - COMP METABOLIC PANEL - CBC + DIFF - ENTERIC BACTERIAL PANEL BY PCR - OVA + PARA MICROSCOPIC - C. DIFFICILE PCR - XR ABDOMEN 1V SUPINE Julio Downey APRN.TECHNICAL SERVICES COORDINATOR documented in this encounter [facility] 04-15-2023 Miscellaneous Notes See previous phone encounter 04/10. Pt states last evening she started with some soft stools again. States there is some shape to them and it is not liquid. She states she is still not feeling well. Is eating and taking fluids well. No N/V. Has had at least 48 oz of fluid today. Made ER f/u appt for tomorrow morning with Jose Rangel. Pt is wondering if she needs to have stool sample tested. documented in this encounter [facility] 04-08-2023 Note HNO ID: [id number] Author: Rishi Romero APRN.NIKO Service: ? Author Type: Nurse Practitioner Type: Progress Notes Filed: 04/08/2023 4:40 PM Note Text: Patient triaged at [facility]. Blacked out helped to bed. Still feeling woosy I will refer to ER, to drive pov to [facility] Er. [facility] 04-08-2023 History of Present illness Narrative Patient triaged at [facility]. Blacked out helped to bed. Still feeling woosy I will refer to ER, to drive pov to [facility] Er. documented in this encounter [facility] 04-08-2023 Miscellaneous Notes noted Patient calls to report dizziness this morning with diarrhea x 2 and feels feverish . Nurse triage completed. Protocol recommends see provider within 24 hours. Patient reports she is feeling a little better not sure if needs to be seen. Might go to [facility] if doesn't feel better. Recommended evaluation within 24 hours. Patient verbalizes understanding and will go to [facility]. Reason for Disposition [1] MODERATE dizziness (e.g., interferes with normal activities) AND [2] has NOT been evaluated by physician for this (Exception: dizziness caused by heat exposure, sudden standing, or poor fluid intake) Answer Assessment - Initial Assessment Questions 1. DESCRIPTION: Patient reports light headedness that started this morning but has improved with drinking fluids and eating breakfast. Patient reports some times she does have trouble with low blood sugar and low blood pressure readings. Patient not able to check blood sugar but could check blood pressure. Feels feverish and has had diarrhea x 2. 2. LIGHTHEADED: Woozy and weak upon standing. 3. VERTIGO: No 4. SEVERITY: - MODERATE: Feels unsteady when walking, but not falling; interferes with normal activities (e.g., school, work). 5. ONSET: This morning 6. AGGRAVATING FACTORS: Standing and walking. 7. HEART RATE: Not able to 8. CAUSE: Previously felt this way with low blood sugar and low blood pressure readings. 9. RECURRENT SYMPTOM: Yes wasn't sure when the last time was or what the actual cause was at that time. 10. OTHER SYMPTOMS: Do you have any other symptoms? (e.g., fever, chest pain, vomiting, diarrhea, bleeding) Feels Feverish Diarrhea x 2. No vomiting. No chest pain or bleeding. Protocols used: Dizziness - [id number] documented in this encounter [facility] 01-14-2023 Note HNO ID: [id number] Author: Sol Harvey Service: ? Author Type: Physician Type: Progress Notes Filed: 01/14/2023 10:38 PM Note Text: Initial Podiatric Office Visit: Chief Complaint: This 82 year old female who presents with chief complaint:discolored toenails of b/l feet that lead to pain HPI Patient presents to clinic for evaluation of b/l feet. Her largest complaint is discoloration and thickening of her toenails that lead to ingrown. As a result, she develops pain. Patient currently has pain to her right great toe, mostly to the distal tip. She states with any degree of pressure to her great toenails, she has pain. She is here to discuss options. She does have someone cutting her toenails who she is happy with. She also complains of numbness and swelling of b/l feet. PAIN EVALUATION 01/14/2023 1459 Pain Level: 7 Pain Location: Toe Description: Aching;Sore Duration Units: Years Frequency: Continuous Intervention/Comfort measure: Reposition;Relaxation No results found for: HBA1C PCP: Maurice Hackett MD PAST MEDICAL HISTORY Diagnosis Date Abnormality of gait 03/08/2013 Allergic rhinitis due to other allergen Atrial fibrillation (HCC) Chondrocalcinosis, cause unspecified, involving lower leg(712.36) 04/25/2008 CPPD right leg (on xray) - has never had an acute pseudogout attack Chronic fatigue Compression fracture of L1 lumbar vertebra (HCC) Concussion Depression Diverticulosis of colon (without mention of hemorrhage) Diverticulosis of large intestine Duodenitis without mention of hemorrhage Dysphagia Dysphagia, unspecified(837.20) 08/01/2010 Esophageal reflux rare symptoms, had more pain on Prevacid than off it Esophagitis, unspecified Fatigue 02/11/2011 Inflamed seborrheic keratosis 04/20/2008 Ingrown toenail 10/07/2010 Irritable bowel syndrome gets constipated easily, also lactose intolerant Loss of weight 02/23/2009 Lumbago 10/18/2012 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 right knee Osteoporosis 07/04/2009 osteopenia 06/2011 Other chronic dermatitis due to solar radiation 04/20/2008 Other forms of migraine resolved Pain in joint, pelvic region and thigh 04/27/2014 Recurrent UTI SOLAR LENGINES////DYSCHROMIA OTHER 04/20/2008 Tachycardia tachycardia, atrial flutter Unspecified constipation Vitamin D deficiency Current Outpatient Medications Medication Sig vibegron (GEMTESA) 75 mg tablet Take 75 mg by mouth once daily. famotidine (PEPCID) 20 mg tablet take 1 tablet by mouth at bedtime if needed meclizine (ANTIVERT) 25 mg tab Take 1 tablet by mouth every 6 hours as needed (dizziness). fludrocortisone (FLORINEF) 0.1 mg tablet Taking 3 times a week (Patient taking differently: Taking 1/2 a tablet 3 times a week) denosumab (PROLIA) 60 mg/mL Inject 60 mg subcutaneously one time only. Gets injection every 6 months Magnesium Glycinate 120mg 3 at night Stress, blood sugar, thyroid/hormones/adrenals/sleep/en ergy/toxins/muscles/constipation/a sthma Work up to 3 capsules with meals at night - can cause loose stools metoprolol succinate ER (TOPROL XL) 25 mg 24 hr tablet Take half tablet in the morning and 1 tablet in the evening. esomeprazole (NEXIUM) 40 mg capsule Take 1 capsule by mouth daily before breakfast. 1/2 hr before meal. anastrozole (ARIMIDEX) 1 mg tablet Take 1 mg by mouth once daily. APIXABAN (ELIQUIS ORAL) Take by mouth twice daily. dofetilide (TIKOSYN) 250 mcg capsule Take 250 mcg by mouth twice daily. acetaminophen (TYLENOL) 325 mg tablet Take 650 mg by mouth every 6 hours as needed. calcium carbonate 600 mg-cholecalciferol 200 units 600 mg-5 mcg (200 unit) tab Take 1 tablet by mouth once daily. ergocalciferol(VITAMIN D 400 UNIT CAP) Take 1,000 Units by mouth once daily. No current facility-administered medications for this visit. ALLERGIES Allergen Reactions Adhesive Tape (Selena* Rash Cantaloupe Erythromycin GI Upset Grass Pollen Mold Penicillins Rash, Swelling Pollen Prevacid [Lansopraz* Diarrhea All PPIs tried have given her diarrhea. Sulfa (Sulfonamide * Pt uncertain if Sulfa allergy is accurate or not. PAST SURGICAL HISTORY Procedure Laterality Date CATHETER, ABLATION 08/19/2013 for afib COLONOSCOPY FLX DX W/COLLJ SPEC WHEN PFRMD 07/23/2004 repeat due 2013 COLONOSCOPY FLX DX W/COLLJ SPEC WHEN PFRMD 06/01/2014 Colonoscopy COLONOSCOPY SCREENING 2013 COLONOSCOPY SCREENING 2018 DILATION AND CURETTAGE DXAND/THER NONOBSTETRIC 1989 EGD TRANSORAL BIOPSY SINGLE/MULTIPLE EGD TRANSORAL BIOPSY SINGLE/MULTIPLE 08/01/2010 ESOPHAGOGASTRODUODENOSCOPY TRANSORAL DIAGNOSTIC 05/15 (more content not included)... [facility] 01-14-2023 Note HNO ID: [id number] Author: Caroline Day LPN Service: ? Author Type: LICENSED NURSE Type: Progress Notes Filed: 01/14/2023 10:38 PM Note Text: AMB ROOMING INTAKE FLOWSHEET DATA Pain Pain Level: 7 Pain Location: Toe Description: Aching, Sore Duration Units: Years Frequency: Continuous Intervention/Comfort measure: Reposition, Relaxation Patient presents with: Left Foot - New, Nail Fungus, Pain, Ingrown Toenail Right Foot - New, Nail Fungus, Pain, Ingrown Toenail Caroline Day LPN [facility] 01-14-2023 History of Present illness Narrative Initial Podiatric Office Visit: Chief Complaint: This 82 year old female who presents with chief complaint:discolored toenails of b/l feet that lead to pain HPI Patient presents to clinic for evaluation of b/l feet. Her largest complaint is discoloration and thickening of her toenails that lead to ingrown. As a result, she develops pain. Patient currently has pain to her right great toe, mostly to the distal tip. She states with any degree of pressure to her great toenails, she has pain. She is here to discuss options. She does have someone cutting her toenails who she is happy with. She also complains of numbness and swelling of b/l feet. PAIN EVALUATION 01/14/2023 1459 Pain Level: 7 Pain Location: Toe Description: Aching;Sore Duration Units: Years Frequency: Continuous Intervention/Comfort measure: Reposition;Relaxation No results found for: HBA1C PCP: Maurice Hackett MD PAST MEDICAL HISTORY Diagnosis Date Abnormality of gait 03/08/2013 Allergic rhinitis due to other allergen Atrial fibrillation (HCC) Chondrocalcinosis, cause unspecified, involving lower leg(712.36) 04/25/2008 CPPD right leg (on xray) - has never had an acute pseudogout attack Chronic fatigue Compression fracture of L1 lumbar vertebra (HCC) Concussion Depression Diverticulosis of colon (without mention of hemorrhage) Diverticulosis of large intestine Duodenitis without mention of hemorrhage Dysphagia Dysphagia, unspecified(787.20) 08/01/2010 Esophageal reflux rare symptoms, had more pain on Prevacid than off it Esophagitis, unspecified Fatigue 02/11/2011 Inflamed seborrheic keratosis 04/20/2008 Ingrown toenail 10/07/2010 Irritable bowel syndrome gets constipated easily, also lactose intolerant Loss of weight 02/23/2009 Lumbago 10/18/2012 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 right knee Osteoporosis 07/04/2009 osteopenia 06/2011 Other chronic dermatitis due to solar radiation 04/20/2008 Other forms of migraine resolved Pain in joint, pelvic region and thigh 04/27/2014 Recurrent UTI SOLAR LENGINES////DYSCHROMIA OTHER 04/20/2008 Tachycardia tachycardia, atrial flutter Unspecified constipation Vitamin D deficiency Current Outpatient Medications Medication Sig vibegron (GEMTESA) 75 mg tablet Take 75 mg by mouth once daily. famotidine (PEPCID) 20 mg tablet take 1 tablet by mouth at bedtime if needed meclizine (ANTIVERT) 25 mg tab Take 1 tablet by mouth every 6 hours as needed (dizziness). fludrocortisone (FLORINEF) 0.1 mg tablet Taking 3 times a week (Patient taking differently: Taking 1/2 a tablet 3 times a week) denosumab (PROLIA) 60 mg/mL Inject 60 mg subcutaneously one time only. Gets injection every 6 months Magnesium Glycinate 120mg 3 at night Stress, blood sugar, thyroid/hormones/adrenals/sleep/en ergy/toxins/muscles/constipation/a sthma Work up to 3 capsules with meals at night - can cause loose stools metoprolol succinate ER (TOPROL XL) 25 mg 24 hr tablet Take half tablet in the morning and 1 tablet in the evening. esomeprazole (NEXIUM) 40 mg capsule Take 1 capsule by mouth daily before breakfast. 1/2 hr before meal. anastrozole (ARIMIDEX) 1 mg tablet Take 1 mg by mouth once daily. APIXABAN (ELIQUIS ORAL) Take by mouth twice daily. dofetilide (TIKOSYN) 250 mcg capsule Take 250 mcg by mouth twice daily. acetaminophen (TYLENOL) 325 mg tablet Take 650 mg by mouth every 6 hours as needed. calcium carbonate 600 mg-cholecalciferol 200 units 600 mg-5 mcg (200 unit) tab Take 1 tablet by mouth once daily. ergocalciferol(VITAMIN D 400 UNIT CAP) Take 1,000 Units by mouth once daily. No current facility-administered medications for this visit. ALLERGIES Allergen Reactions Adhesive Tape (Selena* Rash Cantaloupe Erythromycin GI Upset Grass Pollen Mold Penicillins Rash, Swelling Pollen Prevacid [Lansopraz* Diarrhea All PPIs tried have given her diarrhea. Sulfa (Sulfonamide * Pt uncertain if Sulfa allergy is accurate or not. PAST SURGICAL HISTORY Procedure Laterality Date CATHETER, ABLATION 08/19/2013 for afib COLONOSCOPY FLX DX W/COLLJ SPEC WHEN PFRMD 07/23/2004 repeat due 2013 COLONOSCOPY FLX DX W/COLLJ SPEC WHEN PFRMD 06/01/2014 Colonoscopy COLONOSCOPY SCREENING 2013 COLONOSCOPY SCREENING 2018 DILATION & CURETTAGE DX&/THER NONOBSTETRIC 1989 EGD TRANSORAL BIOPSY SINGLE/MULTIPLE EGD TRANSORAL BIOPSY SINGLE/MULTIPLE 08/01/2010 ESOPHAGOGASTRODUODENOSCOPY TRANSORAL DIAGNOSTIC 06/01/2014 EGD NIPPLE EXPLORATION 09/27/2009 LEFT, surgical bx OOPHORECTOMY PARTIAL/TOTAL UNI/BI AGE 26 Oophorectomy-LEFT PAST SURGICAL HISTORY OF Left 04/2017 breast mastectomy SIGMOIDOSCOPY FLX DX W/COLLJ SPEC BR/WA IF PFRMD 07/23/2004 Sigmoidoscopy FAMILY HISTORY Problem Relation Age of Onset Arthritis Mother Hypertension Mother Cancer Mother uterine other (congestive heart failure) Mother other (renal disease) Mother decreased function, not needing dialysis yet other (dementia) Father other (alcoholic) Father may have been bipolar other (dementia) Paternal Grandmother Cancer Maternal Grandmother ? uterine vs. cervical (probably uterine?) Cancer Other paternal 1st cousin - brain cancer Cancer Sister 66 Lung Breast Cancer Sister 68 Social History Tobacco Use Smoking status: Never Smokeless tobacco: Never Vaping Use Vaping Use: Never used Substance Use Topics Alcohol use: Yes Alcohol/week: 2.5 standard drinks Types: 1 Glasses of Wine (5oz) per week Comment: 1 glass per week Drug use: No REVIEW OF SYSTEMS GENERAL: Negative for Malaise, significant weight loss, fever RESPIRATORY: Negative for cough, wheezing and shortness of breath CARDIOVASCULAR: Negative for chest pain, leg swelling and palpitations GI: Negative for abdominal discomfort, blood in stools or black stools and change in bowel habits : Negative for dysuria, frequency and incontinence MUSCULOSKELETAL: Negative for joint pain or swelling, back pain, and muscle pain. SKIN: Negative for lesions, rash, and itching. HEMATOLOGY/LYMPHOLOGY Negative for prolonged bleeding, bruising easily, and swollen nodes. ENDOCRINE: Negative for cold or heat intolerance, polyuria, polydipsia and goiter. NEURO: negative Physical Exam: Constitutional: Pt is a well developed 82 year old female who is alert, oriented and cooperative Eyes: Following during examination. No redness or drainage. Respiratory: RR normal and nonlabored. Even breathing. No evidence of distress or shortness of breath. Psychology: Patient is engaged during conversation. Normal affect and mood. Does not appear depressed or anxious during encounter. Vascular: Dorsalis pedis and posterior tibial pulses faintly palpable as b/l Capillary Fill time < 5 seconds to digits 1-5 b/l Skin temperature warm to warm proximal to distal b/l Hair growth present to digits Mild swelling is present to b/l feet Neurological: intact light touch/epicritic sensation Vibratory sensation is decreased b/l decreased protective sensation + significant neurological deficits Dermatological: B/l hallux is discolored yellow with slight incurvation. No signs of infection. Webspaces clean and dry 1-4 b/l. Skin appears well hydrated and supple. good color, texture, turgor. No open lesions present. No callosities present. Musculoskeletal/Orthopaedic: Patient has no pain to palpation of b/l feet Radiographs: n/a ASSESSMENT: (B35.1) Onychomycosis (primary encounter diagnosis) (R09.89) Diminished pulses in lower extremity PLAN: 1. History and physical examination performed. 2. Discussed discoloration of toenails. Discussed various etiologies not limited to fungus, mold, yeast, trauma or aging of nail. Discussed options for nails if fungus were the underlying cause not limited to topical medication vs oral medication vs laser vs removal. Patient is not interested in any oral medication. 3. Could consider removal, either total or partial but would recommend pvr prior 4. Discussed swelling of b/l lower extremity. No calf pain. Would recommend compression stocking Sol Harvey DPM Podiatry [address] [facility] [address] Dept: [phone] Dept AMB ROOMING INTAKE FLOWSHEET DATA Pain Pain Level: 7 Pain Location: Toe Description: Aching, Sore Duration Units: Years Frequency: Continuous Intervention/Comfort measure: Reposition, Relaxation Patient presents with: Left Foot - New, Nail Fungus, Pain, Ingrown Toenail Right Foot - New, Nail Fungus, Pain, Ingrown Toenail Caroline Day LPN documented in this encounter [facility] 11-14-2022 Note HNO ID: [id number] Author: Maurice Hackett MD Service: ? Author Type: Physician Type: Progress Notes Filed: 11/14/2022 11:17 AM Note Text: Reason for Visit Patient presents with: F/U 6 months Julianna Tucker is a 82 year old female who presents here today for Above Complaints.. Health Maintenance ADVANCE DIRECTIVE DISCUSSION HPI Julianna Tucker is a 81 year old female who presents today for annual exam with multiple complaints and chronic issues. Since she last seen me , she has lost some weight, had covid , lost sense of smell and has not been feeling the best Does admit to over committing or so she thinks to working on a lot of events for the community and the [employer]. and it is taking up a lot of her time, she does not have any other ongoing issues. Does not currently exercise but is doing Physical Therapy for a while now, for knees and balance and strenght, Tries to stick with an overall healthy diet her main challenge is giving up sweet stuff. Neurologist thinks she has a MCI she is not having serious memory loss. She is easily distracted and there is some brain fog. She is exhausted a lot but able to do all activities of daily living. She does all her instrumental activities of daily living too. Does most of her paper work and does the cooking, laundry as he is more fit that her. Urinary incontinence is a concern , she has been doing some exercises and that is not helping, declines medication before seeing urologist. One concern is that her ankles are swollen on and off, she is on sodium and fludrocortisone but her bp was high, so she was stopped the sodium and the fludricort is helping with the BP etc. Balance and Strength issues: Has seen physical therapy over the past year for a number of reasons and they have been helping her some Denies any falls, but states she has to hold onto things to steady herself at times. Does not require any assistance with ambulation. Also has Chronic right shoulder pain and chronic right knee pain. Gets injections regularly for both of these. States physical therapy has helped in the past with her shoulder but made her knee pain worse. Denies any new or changing symptoms, muscle pain, swollen or red joints. Patient had balance and strength issues recently. Patient had a cortisone shot in the right knee. Patient is not focussed on knee and Physical Therapy. They are still doing balance and exercises. Chronic Dizziness and Nausea: Sees ENT for this and states there is nothing they can do. Chronic fatigue since the since sees functional medicine. Supposed to following a gluten and dairy free diet. Feels overwhelmed and depressed. she should see a counselor soon. Stresses: Major stressor: Feels the COVID pandemic has caused this to worsen. Suicidal Thoughts: No suicidal ideation, intent or plan Support: Comes from multiple sources including Counseling: with functional medicine, states she feels better when she does this and needs to start again. 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 States she drinks the correct amount of water she measures out every morning with the electrolytes as she is instructed by nephrology. Sodium level has been normal and no recent concerns. States when her sodium and electrolytes are not normal, she has stroke like symptoms and can even pass out. Denies any recent events with this. GERD: has intermittent pain to mid upper abdomen. Has statrted taking pepcid at night for the past few days. Denies increasing abdominal pain, vomiting, dark sticky stools, bright red blood in stools, or difficulty swallowing. Atrial Fibrillation - sees Dr. Cooley at [facility], last saw a few months ago. Denies any chest pain, palpitations, edema, or shortness of breath. States Dr. Cooley was No problem-specific Assessment AND Plan notes found for this encounter. PAST MEDICAL HISTORY Diagnosis Date Abnormality of gait 03/08/2013 Allergic rhinitis due to other allergen Atrial fibrillation (HCC) Chondrocalcinosis, cause unspecified, involving lower leg(712.36) 04/25/2008 CPPD right leg (on xray) - has never had an acute pseudogout attack Chronic fatigue Compression fracture of L1 lumbar vertebra (HCC) Concussion Depression Diverticulosis of colon (without mention of hemorrhage) Diverticulosis of large intestine Duodenitis without mention of hemorrhage Dysphagia Dysphagia, unspecified(787.20) 08/01/2010 Esophageal reflux rare symptoms, had more pain on Prevacid than off it Esophagitis, unspecified Fatigue 02/11/2011 Inflamed seborrheic keratosis 04/20/2008 Ingrown toenail 10/07/2010 Irritable bowel syndrome gets constipated easily, also lactose intolerant Loss of weight 02/23/2009 Lumbago 10/18/2012 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 [facility] 11-14-2022 History of Present illness Narrative Reason for Visit Patient presents with: F/U 6 months Julianna Tucker is a 82 year old female who presents here today for Above Complaints.. Health Maintenance ADVANCE DIRECTIVE DISCUSSION HPI Julianna Tucker is a 81 year old female who presents today for annual exam with multiple complaints and chronic issues. Since she last seen me , she has lost some weight, had covid , lost sense of smell and has not been feeling the best Does admit to over committing or so she thinks to working on a lot of events for the community and the [employer]. and it is taking up a lot of her time, she does not have any other ongoing issues. Does not currently exercise but is doing Physical Therapy for a while now, for knees and balance and strenght, Tries to stick with an overall healthy diet her main challenge is giving up sweet stuff. Neurologist thinks she has a MCI she is not having serious memory loss. She is easily distracted and there is some brain fog. She is exhausted a lot but able to do all activities of daily living. She does all her instrumental activities of daily living too. Does most of her paper work and does the cooking, laundry as he is more fit that her. Urinary incontinence is a concern , she has been doing some exercises and that is not helping, declines medication before seeing urologist. One concern is that her ankles are swollen on and off, she is on sodium and fludrocortisone but her bp was high, so she was stopped the sodium and the fludricort is helping with the BP etc. Balance and Strength issues: Has seen physical therapy over the past year for a number of reasons and they have been helping her some Denies any falls, but states she has to hold onto things to steady herself at times. Does not require any assistance with ambulation. Also has Chronic right shoulder pain and chronic right knee pain. Gets injections regularly for both of these. States physical therapy has helped in the past with her shoulder but made her knee pain worse. Denies any new or changing symptoms, muscle pain, swollen or red joints. Patient had balance and strength issues recently. Patient had a cortisone shot in the right knee. Patient is not focussed on knee and Physical Therapy. They are still doing balance and exercises. Chronic Dizziness and Nausea: Sees ENT for this and states there is nothing they can do. Chronic fatigue since the since sees functional medicine. Supposed to following a gluten and dairy free diet. Feels overwhelmed and depressed. she should see a counselor soon. Stresses: Major stressor: Feels the COVID pandemic has caused this to worsen. Suicidal Thoughts: No suicidal ideation, intent or plan Support: Comes from multiple sources including Counseling: with functional medicine, states she feels better when she does this and needs to start again. 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 States she drinks the correct amount of water she measures out every morning with the electrolytes as she is instructed by nephrology. Sodium level has been normal and no recent concerns. States when her sodium and electrolytes are not normal, she has stroke like symptoms and can even pass out. Denies any recent events with this. GERD: has intermittent pain to mid upper abdomen. Has statrted taking pepcid at night for the past few days. Denies increasing abdominal pain, vomiting, dark sticky stools, bright red blood in stools, or difficulty swallowing. Atrial Fibrillation - sees Dr. Cooley at [facility], last saw a few months ago. Denies any chest pain, palpitations, edema, or shortness of breath. States Dr. Cooley was No problem-specific Assessment & Plan notes found for this encounter. PAST MEDICAL HISTORY Diagnosis Date Abnormality of gait 03/08/2013 Allergic rhinitis due to other allergen Atrial fibrillation (HCC) Chondrocalcinosis, cause unspecified, involving lower leg(712.36) 04/25/2008 CPPD right leg (on xray) - has never had an acute pseudogout attack Chronic fatigue Compression fracture of L1 lumbar vertebra (HCC) Concussion Depression Diverticulosis of colon (without mention of hemorrhage) Diverticulosis of large intestine Duodenitis without mention of hemorrhage Dysphagia Dysphagia, unspecified(787.20) 08/01/2010 Esophageal reflux rare symptoms, had more pain on Prevacid than off it Esophagitis, unspecified Fatigue 02/11/2011 Inflamed seborrheic keratosis 04/20/2008 Ingrown toenail 10/07/2010 Irritable bowel syndrome gets constipated easily, also lactose intolerant Loss of weight 02/23/2009 Lumbago 10/18/2012 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 right knee Osteoporosis 07/04/2009 osteopenia 06/2011 Other chronic dermatitis due to solar radiation 04/20/2008 Other forms of migraine resolved Pain in joint, pelvic region and thigh 04/27/2014 Recurrent UTI SOLAR LENGINES////DYSCHROMIA OTHER 04/20/2008 Tachycardia tachycardia, atrial flutter Unspecified constipation Vitamin D deficiency PAST SURGICAL HISTORY Procedure Laterality Date CATHETER, ABLATION 08/19/2013 for afib COLONOSCOPY FLX DX W/COLLJ SPEC WHEN PFRMD 07/23/2004 repeat due 2013 COLONOSCOPY FLX DX W/COLLJ SPEC WHEN PFRMD 06/01/2014 Colonoscopy COLONOSCOPY SCREENING 2013 COLONOSCOPY SCREENING 2018 DILATION & CURETTAGE DX&/THER NONOBSTETRIC 1989 EGD TRANSORAL BIOPSY SINGLE/MULTIPLE EGD TRANSORAL BIOPSY SINGLE/MULTIPLE 08/01/2010 ESOPHAGOGASTRODUODENOSCOPY TRANSORAL DIAGNOSTIC 06/01/2014 EGD NIPPLE EXPLORATION 09/27/2009 LEFT, surgical bx OOPHORECTOMY PARTIAL/TOTAL UNI/BI AGE 26 Oophorectomy-LEFT PAST SURGICAL HISTORY OF Left 04/2017 breast mastectomy SIGMOIDOSCOPY FLX DX W/COLLJ SPEC BR/WA IF PFRMD 07/23/2004 Sigmoidoscopy FAMILY HISTORY Problem Relation Age of Onset Arthritis Mother Hypertension Mother Cancer Mother uterine other (congestive heart failure) Mother other (renal disease) Mother decreased function, not needing dialysis yet other (dementia) Father other (alcoholic) Father may have been bipolar other (dementia) Paternal Grandmother Cancer Maternal Grandmother ? uterine vs. cervical (probably uterine?) Cancer Other paternal 1st cousin - brain cancer Cancer Sister 66 Lung Breast Cancer Sister 68 Social History Tobacco Use Smoking status: Never Smokeless tobacco: Never Vaping Use Vaping Use: Never used Substance Use Topics Alcohol use: Yes Alcohol/week: 2.5 standard drinks Types: 1 Glasses of Wine (5oz) per week Comment: 1 glass per week Drug use: No Past medical history, appointments, medications, allergies reviewed. Pertinent Lab/Diagnostic Studies are reviewed and discussed today Current Outpatient Medications: famotidine (PEPCID) 20 mg tablet meclizine (ANTIVERT) 25 mg tab fludrocortisone (FLORINEF) 0.1 mg tablet denosumab (PROLIA) 60 mg/mL Magnesium Glycinate 120mg 3 at night Stress, blood sugar, thyroid/hormones/adrenals/sleep/en ergy/toxins/muscles/constipation/a sthma metoprolol succinate ER (TOPROL XL) 25 mg 24 hr tablet esomeprazole (NEXIUM) 40 mg capsule anastrozole (ARIMIDEX) 1 mg tablet APIXABAN (ELIQUIS ORAL) dofetilide (TIKOSYN) 250 mcg capsule acetaminophen (TYLENOL) 325 mg tablet calcium carbonate 600 mg-cholecalciferol 200 units 600 mg-5 mcg (200 unit) tab ergocalciferol(VITAMIN D 400 UNIT CAP) Review of Systems CONSTITUTIONAL: No fevers, chills night sweats, unintended weight loss CARDIOVASCULAR: No chest pain, dyspnea, palpitations, orthopnea, PND, ankle edema. PULM: No dyspnea, unexplained cough. GI: No dysphagia/odynophagia, problematic reflux, constipation, diarrhea, changes in stool habits, hematochezia, melena. : No new urinary complaints, including dysuria, gross hematuria or pyuria. NEURO: No new balance problems, peripheral weakness/paresthesias or numbness of concern. Physical Exam BP 122/62 (BP Site: Right Arm, BP Position: Sitting, BP Cuff Size: Regular Adult) Pulse 64 Temp (!) 35.6 C (96 F) Resp 12 Ht 170.2 cm (5' 7 ) Wt 51.7 kg (114 lb) SpO2 100% BMI 17.85 kg/m General appearance: Well appearing, alert, in no acute distress, well nourished. Skin: Skin color, texture, turgor normal, no suspicious rashes or lesions Head: Normocephalic, no masses, lesions, tenderness or abnormalities Eyes: Anicteric sclera. Pupils are equally round and reactive to light. Extraocular movements are intact. Lungs: Lungs clear to auscultation. No wheezing, rhonchi, rales Heart: RRR without murmur, gallop, or rubs. Extremities: No deformities, edema, skin discoloration, clubbing or cyanosis. Good capillary refill. ASSESSMENT/PLAN: 1. Urinary incontinence, unspecified type - ICD9: 788.30, ICD10: R32 (primary diagnosis) She would like to see the urologist - CONSULT TO UROLOGY 2. Paroxysmal atrial fibrillation (HCC) - ICD9: 427.31, ICD10: I48.0 Cont the same medications 3. 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 Chronic fatigue disorder - ICD9: 780.71, ICD10: G93.32 Reassured, asked her to spend more time with herself and to 5. Dizziness and giddiness - ICD9: 780.4, ICD10: R42 Dizziness is the same as before 6. Mild cognitive disorder - ICD9: 294.9, ICD10: F09 Not worsened at least recently Maurice Hackett MD documented in this encounter [facility] 09-06-2022 Miscellaneous Notes Patient was able to have the Molnupiravir prescription transferred to [facility] and started the medicine last night. See pharmacy's note to change rx. documented in this encounter [facility] 09-05-2022 Instructions Ron García MD - 09/05/2022 5:56 PM EST Fact Sheet for Patients And Caregivers Emergency Use Authorization (EUA) Of Molnupiravir For Coronavirus Disease 2019 (COVID-19) What is the most important information I should know about molnupiravir? Molnupiravir may cause serious side effects, including: Molnupiravir may cause harm to your unborn baby. It is not known if molnupiravir will harm your baby if you take molnupiravir during . Molnupiravir is not recommended for use in . Molnupiravir has not been studied in . Molnupiravir was studied in animals only. When molnupiravir was given to animals, molnupiravir caused harm to their unborn babies. You and your healthcare provider may decide that you should take molnupiravir during if there are no other COVID-19 treatment options authorized by the FDA that are accessible or clinically appropriate for you. If you and your healthcare provider decide that you should take molnupiravir during , you and your healthcare provider should discuss the known and potential benefits and the potential risks of taking molnupiravir during . For individuals who are able to become : You should use a reliable method of control (contraception) consistently and correctly during treatment with molnupiravir and for 4 days after the last dose of molnupiravir. Talk to your healthcare provider about reliable control methods. Before starting treatment with molnupiravir your healthcare provider may do a test to see if you are before starting treatment with molnupiravir. Tell your healthcare provider right away if you become or think you may be during treatment with molnupiravir. Surveillance Program: There is a surveillance program for individuals who take molnupiravir during . The purpose of this program is to collect information about the health of you and your baby. Talk to your healthcare provider about how to take part in this program. If you take molnupiravir during and you agree to participate in the surveillance program and allow your healthcare provider to share your information with [facility] [employer] [facility] [employer], then your healthcare provider will report your use of molnupiravir during to [facility] [employer] [facility] [employer]. by calling or Pregnancyreporting.[employer] Knight. For individuals who are sexually active with partners who are able to become : It is not known if molnupiravir can affect sperm. While the risk is regarded as low, animal studies to fully assess the potential for molnupiravir to affect the babies of males treated with molnupiravir have not been completed. A reliable method of control (contraception) should be used consistently and correctly during treatment with molnupiravir and for at least 3 months after the last dose. The risk to sperm beyond 3 months is not known. Studies to understand the risk to sperm beyond 3 months are ongoing. Talk to your healthcare provider about reliable control methods. Talk to your healthcare provider if you have questions or concerns about how molnupiravir may affect sperm. You are being given this fact sheet because your healthcare provider believes it is necessary to provide you with molnupiravir for the treatment of adults with snvv-ya-xvogzpvx coronavirus disease 2019 (COVID-19) with positive results of direct SARS-CoV-2 viral testing, and who are at high risk for progressing to severe COVID-19 including hospitalization or , and for whom other COVID-19 treatment options authorized by the FDA are not accessible or clinically appropriate. The [place]. Food and Drug Administration (FDA) has issued an Emergency Use Authorization (EUA) to make molnupiravir available during the COVID-19 pandemic (for more details about an EUA please see What is an Emergency Use Authorization? at the end of this document). Molnupiravir is not an FDA-approved medicine in the [place]. Read this Fact Sheet for information about molnupiravir. Talk to your healthcare provider about your options if you have any questions. It is your choice to take molnupiravir. What is COVID-19? COVID-19 is caused by a virus called a coronavirus. You can get COVID-19 through close contact with another person who has the virus. COVID-19 illnesses have ranged from very jvey-fw-ihrpdo, including illness resulting in . While information so far suggests that most COVID-19 illness is mild, serious illness can happen and may cause some of your other medical conditions to become worse. Older people and people of all ages with severe, long lasting (chronic) medical conditions like heart disease, lung disease and diabetes, for example seem to be at higher risk of being hospitalized for COVID-19. What is molnupiravir? Molnupiravir is an investigational medicine used to treat snsk-hi-edpytuyn COVID-19 in adults: with positive results of direct SARS-CoV-2 viral testing, and who are at high risk for progressing to severe COVID-19 including hospitalization or , and for whom other COVID-19 treatment options authorized by the FDA are not accessible or clinically appropriate. The FDA has authorized the emergency use of molnupiravir for the treatment of mild-tomoderate COVID-19 in adults under an EUA. For more information on EUA, see the What is an Emergency Use Authorization (EUA)? section at the end of this Fact Sheet. Molnupiravir is not authorized: for use in people less than 18 years of age. for prevention of COVID-19. for people needing hospitalization for COVID-19. for use for longer than 5 consecutive days. What should I tell my healthcare provider before I take molnupiravir? Tell your healthcare provider if you: Have any allergies Are or plan to breastfeed Have any serious illnesses Are taking any medicines (prescription, echh-htb-rkugzpb, vitamins, or herbal products). How do I take molnupiravir? Take molnupiravir exactly as your healthcare provider tells you to take it. Take 4 capsules of molnupiravir every 12 hours (for example, at 8 am and at 8 pm) Take molnupiravir for 5 days. It is important that you complete the full 5 days of treatment with molnupiravir. Do not stop taking molnupiravir before you complete the full 5 days of treatment, even if you feel better. Take molnupiravir with or without food. You should stay in isolation for as long as your healthcare provider tells you to. Talk to your healthcare provider if you are not sure about how to properly isolate while you have COVID-19. Swallow molnupiravir capsules whole. Do not open, break, or crush the capsules. If you cannot swallow capsules whole, tell your healthcare provider. What to do if you miss a dose: If it has been less than 10 hours since the missed dose, take it as soon as you remember If it has been more than 10 hours since the missed dose, skip the missed dose and take your dose at the next scheduled time. Do not double the dose of molnupiravir to make up for a missed dose. What are the important possible side effects of molnupiravir? Possible side effects of molnupiravir are: See, What is the most important information I should know about molnupiravir? diarrhea nausea dizziness These are not all the possible side effects of molnupiravir. Not many people have taken molnupiravir. Serious and unexpected side effects may happen. This medicine is still being studied, so it is possible that all of the risks are not known at this time. What other treatment choices are there? Like molnupiravir, FDA may allow for the emergency use of other medicines to treat people with COVID-19. Go to https://www.fda.gov/emergency-prep jnwpratt-iym-pmhdttzm/mcm-legalreg tlwiqbf-gqe-vhmjng-framework/emerg kheo-zve-umkwprpsimckc for more information. It is your choice to be treated or not to be treated with molnupiravir. Should you decide not to take it, it will not change your standard medical care. What if I am ? is not recommended during treatment with molnupiravir and for 4 days after the last dose of molnupiravir. If you are or plan to breastfeed, talk to your healthcare provider about your options and specific situation before taking molnupiravir. How do I report side effects with molnupiravir? Contact your healthcare provider if you have any side effects that bother you or do not go away. Report side effects to FDA MedWatch at www.fda.gov/medwatch or call 4-233-UYS-3856 ( ). How should I store molnupiravir? Store molnupiravir capsules at room temperature between 68 F to 77 F (20 C to 25 C). Keep molnupiravir and all medicines out of the reach of children and pets. How can I learn more about COVID-19? Ask your healthcare provider. Visit www.cdc.gov/COVID19 Contact your local or state public health department. Call [facility] [employer] [facility] [employer] at (toll free in the [place] Visit www.Caravan What Is an Emergency Use Authorization (EUA)? The [place] FDA has made molnupiravir available under an emergency access mechanism called an Emergency Use Authorization (EUA) The EUA is supported by a Marine Photographer of Health and Human Service (HHS) declaration that circumstances exist to justify emergency use of drugs and biological products during the COVID-19 pandemic. Molnupiravir for the treatment of oybq-wo-ogjpmuxc COVID-19 in adults with positive results of direct SARS-CoV-2 viral testing, who are at high risk for progression to severe COVID-19, including hospitalization or , and for whom alternative COVID-19 treatment options authorized by FDA are not accessible or clinically appropriate, has not undergone the same type of review as an FDA-approved product. In issuing an EUA under the COVID-19 public health emergency, the FDA has determined, among other things, that based on the total amount of scientific evidence available including data from adequate and well-controlled clinical trials, if available, it is reasonable to believe that the product may be effective for diagnosing, treating, or preventing COVID-19, or a serious or life-threatening disease or condition caused by COVID19; that the known and potential benefits of the product, when used to diagnose, treat, or prevent such disease or condition, outweigh the known and potential risks of such product; and that there are no adequate, approved, and available alternatives. All of these criteria must be met to allow for the product to be used in the treatment of patients during the COVID-19 pandemic. The EUA for molnupiravir is in effect for the duration of the COVID-19 declaration justifying emergency use of molnupiravir, unless terminated or revoked (after which molnupiravir may no longer be used under the EUA). For patent information: www.Ti Knight/research/patent Copyright 2020 [employer] [place], [facility] and its affiliates. All rights reserved. [id number] Issued: 09/05/2021 documented in this encounter [facility] 09-05-2022 History of Present illness Narrative Patient presents with: Nausea: Pt reported + Covid exposure reported + home Covid test AM, sxs onset x2 days. HPI: Feeling sick for 5 days. Symptoms began on 09/01/2022. Home COVID test positive today. Positive symptoms: Sore throat, Fatigue, Nausea, vomited, dizziness, chronic Rhinorrhea, mild Headache, little shortness of breath, new cough Negative symptoms: Fever, Diarrhea, OTC: nausea medicine. No prior COVID illness. Has had COVID vaccine x5, bivalent booster in May. MEDICATIONS: Current Outpatient Medications Medication Sig famotidine (PEPCID) 20 mg tablet take 1 tablet by mouth at bedtime if needed meclizine (ANTIVERT) 25 mg tab Take 1 tablet by mouth every 6 hours as needed (dizziness). fludrocortisone (FLORINEF) 0.1 mg tablet Taking 3 times a week (Patient taking differently: Taking 1/2 a tablet 3 times a week) denosumab (PROLIA) 60 mg/mL Inject 60 mg subcutaneously one time only. Gets injection every 6 months Magnesium Glycinate 120mg 3 at night Stress, blood sugar, thyroid/hormones/adrenals/sleep/en ergy/toxins/muscles/constipation/a sthma Work up to 3 capsules with meals at night - can cause loose stools metoprolol succinate ER (TOPROL XL) 25 mg 24 hr tablet Take half tablet in the morning and 1 tablet in the evening. esomeprazole (NEXIUM) 40 mg capsule Take 1 capsule by mouth daily before breakfast. 1/2 hr before meal. anastrozole (ARIMIDEX) 1 mg tablet Take 1 mg by mouth once daily. APIXABAN (ELIQUIS ORAL) Take by mouth twice daily. dofetilide (TIKOSYN) 250 mcg capsule Take 250 mcg by mouth twice daily. acetaminophen (TYLENOL) 325 mg tablet Take 650 mg by mouth every 6 hours as needed. calcium carbonate 600 mg-cholecalciferol 200 units 600 mg-5 mcg (200 unit) tab Take 1 tablet by mouth once daily. ergocalciferol(VITAMIN D 400 UNIT CAP) Take 1,000 Units by mouth once daily. No current facility-administered medications for this visit. ALLERGIES: ALLERGIES Allergen Reactions Adhesive Tape (Selena* Rash Cantaloupe Erythromycin GI Upset Grass Pollen Mold Penicillins Rash, Swelling Pollen Prevacid [Lansopraz* Diarrhea All PPIs tried have given her diarrhea. Sulfa (Sulfonamide * Pt uncertain if Sulfa allergy is accurate or not. VITALS: BP 138/82 Pulse 70 Temp 36.9 C (98.4 F) (Tympanic) Resp 18 Wt 53.4 kg (117 lb 12.8 oz) SpO2 99% BMI 18.45 kg/m PHYSICAL EXAM: GEN: mildly ill appearing HEENT: PERRL, EOMI, conjunctiva clear Throat: moist mucous membranes, mild erythema, no exudate Neck: supple, no thyromegaly, no lymphadenopathy HEART: regular rate and rhythm, no murmurs LUNGS: clear to auscultation, no wheezes or crackles, no increased WOB Molnupiravir Eligibility and Patient Discussion [facility] Formulary Restriction Criteria: Adult outpatients 18 years and older with ALL of the following: [x] Patient has positive SARS-COV-2 viral test (PCR or antigen test) during current illness [x] Patient has symptoms for 5 days or less [x] Not requiring hospitalization at any time for management of COVID-19 [x] Not requiring supplemental oxygen or a change in baseline supplemental oxygen [x] Not utilized for pre-exposure or post-exposure prophylaxis for prevention of COVID-19 [x] Patient is not or lactating [x] Meeting at least one of the criteria for high risk of progression to severe COVID-19: [x] Age over 65 years [] Cancer [] Chronic kidney disease [] Chronic liver disease [] Chronic lung diseases, including cystic fibrosis [] Dementia or other neurological conditions [] Diabetes (type 1 or type 2) [] Disabilities, including Down syndrome and neurodevelopmental disorders [x] Heart conditions [] HIV infection [] Immunocompromised state [] Mental health conditions [] Medical related technological dependence (tracheostomy, gastrostomy, or positive pressure ventilation (not related to COVID) [] Overweight and obesity (BMI greater or equal to 25 for adults) [] Physical inactivity [] Sickle cell disease or thalassemia [] Smoking, current or former [] Solid organ or blood stem cell transplant [] Stroke or cerebrovascular disease [] Substance use disorders [] Tuberculosis [] People from racial and ethnic minority groups Criteria above are met: Yes Date of Positive Test:09/05/22 Date of Symptom Onset: 09/01/22 Patient received COVID vaccine: Yes / status reviewed: Females: [x] Patient is not currently and there is no possibility the patient could be (select one of the following): [x] test does not need to be confirmed in patients who have undergone permanent sterilization, are currently using an intrauterine system or contraceptive implant, or in whom is not possible. [] Patients not meeting conditions above: assess whether the patient is based on the first day of the last menstrual period in individuals who have regular menstrual cycles, is using reliable method of contraception correctly and consistently or have had a negative test [] A test is recommended if the individual has irregular menstrual cycles, is unsure of the first day of the last menstrual period or is not using effective contraception correctly and consistently [x] Patient is not currently . is not recommended during treatment and for four days after final dose of molnupiravir. [x] Females have been advised to use a reliable method of contraception correctly and consistently for the duration of treatment and for four days after the last dose of molnupiravir Males: [] Sexually active male with partner(s) of childbearing potential has been advised to use a reliable method of contraception correctly and consistently for intercourse for the duration of treatment and for three months after the last dose of molnupiravir I have discussed the use of the investigational therapeutic, molnupiravir, for the treatment of mild to moderate COVID-19 and its use under Emergency Use Authorization with the patient. The patient was informed that molnupiravir is not an FDA approved drug and that it is authorized for use under this Emergency Use Authorization. The patient was also informed of the significant known benefits and potential risks of molnupiravir, and the extent to which such potential risks and benefits are unknown. The patient was informed that there is mandatory reporting of all medication errors and serious adverse events potentially related to molnupiravir treatment within 7 calendar days from the onset of the event and that events up to 28 days after completion of therapy need to be reported. The discussion included alternatives to receiving molnupiravir, including clinical trials, and potential the risks and benefits of those alternatives. The patient was provided electronically with the Fact Sheet for Patients, Parents and Caregivers . The patient was also instructed that in addition to the treatment with molnupiravir, he/she should continue to self-isolate and use infection control measures (e.g., wear mask, isolate, social distance, avoid sharing personal items, clean and disinfect high touch surfaces, and frequent handwashing) according to CDC guidelines. The patient stated understanding and gave verbal consent to proceeding with molnupiravir treatment. Ron García MD September 05, 2022 6:09 PM ASSESSMENT/PLAN: 1. Acute COVID-19 - ICD9: 079.89, ICD10: U07.1 Patient would like to proceed with antiviral treatment. - MOLNUPIRAVIR 200 MG CAPSULE (EUA) - 2019 CORONAVIRUS Ron García MD documented in this encounter [facility] 09-05-2022 Miscellaneous Notes Pt called in and reports she couldn't get connected to the [facility]. Let Pt know to come into [facility] and bring her Covid test as they are open until 8 pm. They can prescribe the antivirals to her and savings counselor her on which one to take with the medications she is already on. Patient calling said she did COVID test today and is COVID positive. Her tested positive Thursday. She has sore throat, nausea, dizziness, fatigued, began with symptoms on Thursday or Thursday. Patient was asking about oral antiviral rx. No virtual appt available this afternoon, advised can do express care on line or go to ill express care. Patient said she was going to try express care on line. documented in this encounter [facility] 08-28-2022 Miscellaneous Notes Pt called and is notified of providers results and instructions. Pt voices understanding. Pt states she had wanted her urology order to go to the OBGYN Urologist with [place]. I told her I didn't know of any with [facility], and she said she had thought she had read something about one. I told her I knew of Dr Ahmadi and Dr Prince that work with [facility] and she said no to both those names. I told her if she finds out who she wants to go to and the fax number to call us and let us know and we can fax her orders and information over. Josie Blankenship RN Left a message for pt to call the office and ask to speak to a nurse. Devi Lowe LPN Please let patient know one of her thyroid levels were slightly low. I would like to recheck thyroid function in 3 weeks. Thank you Manisha Nichole APRN.CNP documented in this encounter [facility] 08-20-2022 Miscellaneous Notes Left message for patient with results and recommendations.Laly Mohr LPN Please notify patient that urine culture showed mixture of bacteria which suggests possible contamination upon collection. Advise her to finish the antibiotic if it is helping her symptoms but if not, then she will need to return to provide another specimen. Thank you. Alice Jenkins APRN.NIKO documented in this encounter [facility] 08-19-2022 History of Present illness Narrative CC: Patient presents with: Urinary Frequency: Frequency, urgency, low back pain and lower abd ominal pain x 3- days Patient was seen in the ER Thursday they did not do a urine at that time. HPI Julianna Tucker is a 82 year old female who presents with complaint of possible UTI. These symptoms have been present for 3 days. Associated symptoms: urgency and frequency Denies: backpain, fever, chills, and sweats Treatments: nothing The ROS was otherwise negative. PMH, Medications, labs, allergies, and recent past visits with PCP were reviewed and updated as able. PHYSICAL EXAM: BP 144/84 Pulse 74 Temp 36.4 C (97.6 F) (Tympanic) Resp 18 Wt 52.3 kg (115 lb 6.4 oz) SpO2 99% BMI 18.07 kg/m General: Well appearing and alert CV: Regular rate and rhythm without obvious murmur Lungs: clear to auscultation bilaterally Back: straight and symmetric Abdomen: soft, nontender, nondistended PAST MEDICAL HISTORY Diagnosis Date Abnormality of gait 03/08/2013 Allergic rhinitis due to other allergen Atrial fibrillation (HCC) Chondrocalcinosis, cause unspecified, involving lower leg(712.36) 04/25/2008 CPPD right leg (on xray) - has never had an acute pseudogout attack Chronic fatigue Compression fracture of L1 lumbar vertebra (HCC) Concussion Depression Diverticulosis of colon (without mention of hemorrhage) Diverticulosis of large intestine Duodenitis without mention of hemorrhage Dysphagia Dysphagia, unspecified(787.20) 08/01/2010 Esophageal reflux rare symptoms, had more pain on Prevacid than off it Esophagitis, unspecified Fatigue 02/11/2011 Inflamed seborrheic keratosis 04/20/2008 Ingrown toenail 10/07/2010 Irritable bowel syndrome gets constipated easily, also lactose intolerant Loss of weight 02/23/2009 Lumbago 10/18/2012 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 right knee Osteoporosis 07/04/2009 osteopenia 06/2011 Other chronic dermatitis due to solar radiation 04/20/2008 Other forms of migraine resolved Pain in joint, pelvic region and thigh 04/27/2014 Recurrent UTI SOLAR LENGINES////DYSCHROMIA OTHER 04/20/2008 Tachycardia tachycardia, atrial flutter Unspecified constipation Vitamin D deficiency PAST SURGICAL HISTORY Procedure Laterality Date CATHETER, ABLATION 08/19/2013 for afib COLONOSCOPY FLX DX W/COLLJ SPEC WHEN PFRMD 07/23/2004 repeat due 2013 COLONOSCOPY FLX DX W/COLLJ SPEC WHEN PFRMD 06/01/2014 Colonoscopy COLONOSCOPY SCREENING 2013 COLONOSCOPY SCREENING 2018 DILATION & CURETTAGE DX&/THER NONOBSTETRIC 1989 EGD TRANSORAL BIOPSY SINGLE/MULTIPLE EGD TRANSORAL BIOPSY SINGLE/MULTIPLE 08/01/2010 ESOPHAGOGASTRODUODENOSCOPY TRANSORAL DIAGNOSTIC 06/01/2014 EGD NIPPLE EXPLORATION 09/27/2009 LEFT, surgical bx OOPHORECTOMY PARTIAL/TOTAL UNI/BI AGE 26 Oophorectomy-LEFT PAST SURGICAL HISTORY OF Left 04/2017 breast mastectomy SIGMOIDOSCOPY FLX DX W/COLLJ SPEC BR/WA IF PFRMD 07/23/2004 Sigmoidoscopy ALLERGIES Adhesive Tape (Rosins), Cantaloupe, Erythromycin, Grass Pollen, Mold, Penicillins, Pollen, Prevacid [Lansoprazole], and Sulfa (Sulfonamide Antibiotics) MEDICATIONS famotidine (PEPCID) 20 mg tablet take 1 tablet by mouth at bedtime if needed meclizine (ANTIVERT) 25 mg tab Take 1 tablet by mouth every 6 hours as needed (dizziness). fludrocortisone (FLORINEF) 0.1 mg tablet Taking 3 times a week (Patient taking differently: Taking 1/2 a tablet 3 times a week) denosumab (PROLIA) 60 mg/mL Inject 60 mg subcutaneously one time only. Gets injection every 6 months Magnesium Glycinate 120mg 3 at night Stress, blood sugar, thyroid/hormones/adrenals/sleep/en ergy/toxins/muscles/constipation/a sthma Work up to 3 capsules with meals at night - can cause loose stools metoprolol succinate ER (TOPROL XL) 25 mg 24 hr tablet Take half tablet in the morning and 1 tablet in the evening. esomeprazole (NEXIUM) 40 mg capsule Take 1 capsule by mouth daily before breakfast. 1/2 hr before meal. anastrozole (ARIMIDEX) 1 mg tablet Take 1 mg by mouth once daily. APIXABAN (ELIQUIS ORAL) Take by mouth twice daily. dofetilide (TIKOSYN) 250 mcg capsule Take 250 mcg by mouth twice daily. acetaminophen (TYLENOL) 325 mg tablet Take 650 mg by mouth every 6 hours as needed. calcium carbonate 600 mg-cholecalciferol 200 units 600 mg-5 mcg (200 unit) tab Take 1 tablet by mouth once daily. ergocalciferol(VITAMIN D 400 UNIT CAP) Take 1,000 Units by mouth once daily. nitrofurantoin monohydrate and macrocrystal (MACROBID) 100 mg capsule Take 1 capsule by mouth twice daily for 5 days. One Aspen (Pure Encapsulation) -- fish oil Take 2 capsules by mouth daily with food. FAMILY HISTORY Problem Relation Age of Onset Arthritis Mother Hypertension Mother Cancer Mother uterine other (congestive heart failure) Mother other (renal disease) Mother decreased function, not needing dialysis yet other (dementia) Father other (alcoholic) Father may have been bipolar other (dementia) Paternal Grandmother Cancer Maternal Grandmother ? uterine vs. cervical (probably uterine?) Cancer Other paternal 1st cousin - brain cancer Cancer Sister 66 Lung Breast Cancer Sister 68 Social History Tobacco Use Smoking status: Never Smokeless tobacco: Never Vaping Use Vaping Use: Never used Substance Use Topics Alcohol use: Yes Alcohol/week: 2.5 standard drinks Types: 1 Glasses of Wine (5oz) per week Comment: 1 glass per week Drug use: No ASSESSMENT/PLAN: 1. Urinary frequency - ICD9: 788.41, ICD10: R35.0 - UA DIP, URINE (POC) - URINE CULTURE Macrobid twice a day for 5 days. Prescription instructions reviewed with patient as applicable. Potential red flag symptoms discussed with the patient. Reviewed appropriate action plan to take if red flag symptoms occur. Patient agreeable to treatment plan. Lori Patel APRN.NIKO documented in this encounter [facility] 08-11-2022 History of Present illness Narrative Associated Order(s): Large Joint Arthro/Inj: R knee joint Post-Procedure Diagnose(s): Primary osteoarthritis of right knee Large Joint Arthro/Inj: R knee joint Informed Consent Consent Obtained: Verbal [place] Protocol A moment to CARE was completed. SIGN IN Sign in communication not applicable due to emergent procedure. Personnel directly involved with the procedure wore the appropriate PPE. Special Equipment: N/A Patient/Surrogate Stated/Verified: Patient name, Date of , Relevant allergies and Intended procedure TIME OUT Intended patient and procedure match the source document(s). Consent documented and matches the intended procedure. Relevant labs, photos, and/or imaging studies have been reviewed. Correct side/site marked and visible. Medications required for procedure verified. No fire risk assessment and interventions applicable. No implant(s) inserted. 08/11/2022 1:47 PM The procedure site was prepped in the usual sterile fashion. Site: R knee joint Medications: 20 mg sodium hyaluronate 10 mg/mL(mw 2.4 -3.6 million) Outcome: Tolerated well, no immediate complications Post-injection instructions were reviewed with the patient and the patient voiced understanding of these instructions. SIGN OUT Post-procedure follow-up management communicated and Plan of Care Visit completed when applicable Euflexxa injection # 3 into right knee. LOT # [id number] EXP 06/27/2023 Dipika Merchant Ma Patient presents with: Right Knee - Injections, Established Patient AMB ROOMING INTAKE FLOWSHEET DATA Risk Screening Do you have concerns about personal safety or safety in the home?: No Pt states no pain in right knee at this time. documented in this encounter [facility] 08-04-2022 History of Present illness Narrative Associated Order(s): Large Joint Arthro/Inj: R knee joint Post-Procedure Diagnose(s): Primary osteoarthritis of right knee Large Joint Arthro/Inj: R knee joint Informed Consent Consent Obtained: Verbal [place] Protocol A moment to CARE was completed. SIGN IN Sign in communication not applicable due to emergent procedure. Personnel directly involved with the procedure wore the appropriate PPE. Special Equipment: N/A Patient/Surrogate Stated/Verified: Patient name, Date of , Relevant allergies and Intended procedure TIME OUT Intended patient and procedure match the source document(s). Consent documented and matches the intended procedure. Relevant labs, photos, and/or imaging studies have been reviewed. Correct side/site marked and visible. Medications required for procedure verified. No fire risk assessment and interventions applicable. No implant(s) inserted. 08/04/2022 1:48 PM The procedure site was prepped in the usual sterile fashion. Site: R knee joint Medications: 20 mg sodium hyaluronate 10 mg/mL(mw 2.4 -3.6 million) Outcome: Tolerated well, no immediate complications Post-injection instructions were reviewed with the patient and the patient voiced understanding of these instructions. SIGN OUT Post-procedure follow-up management communicated and Plan of Care Visit completed when applicable Patient presents with: Right Knee - Injections Euflexxa injection # 2 right knee Intake information documented in the prior visit with Maggi on 07/28/22. Patient denies any pain today. LOT # [id number] EXP 06/27/2023 Mari Conti Ma documented in this encounter [facility] 07-28-2022 History of Present illness Narrative Associated Order(s): Large Joint Arthro/Inj: R knee joint Post-Procedure Diagnose(s): Primary osteoarthritis of right knee; Chronic pain of right knee Maggi Aldana PA-C Department of Orthopaedics Orthopaedics [address] [facility] [address] Dept: [phone] Dept July 28, 2022 CHIEF COMPLAINT: Established Patient and Follow Up of the Right Knee (Last injection 04/21/22). ASSESSMENT: No diagnosis found. SUMMARY/PLAN: Patient presents with continued right knee pain. She was seen in the urgent care because she had quite a bit of swelling in her right lower extremity. She told me that she was wearing the knee brace for the whole day and she believes that it may have caused the swelling in her knee. She started aquatic therapy which she finds to be very helpful. Cortisone injections are only helping her for a few weeks and she is interested in trying viscosupplementation. We will start viscosupplementation injections today. Evaluated her brace and we will try switching her from a small brace to a medium. Large Joint Arthro/Inj: R knee joint Informed Consent Consent Obtained: Verbal [place] Protocol A moment to CARE was completed. SIGN IN Sign in communication not applicable due to emergent procedure. Personnel directly involved with the procedure wore the appropriate PPE. Special Equipment: N/A Patient/Surrogate Stated/Verified: Patient name, Date of , Relevant allergies and Intended procedure TIME OUT Intended patient and procedure match the source document(s). Consent documented and matches the intended procedure. Relevant labs, photos, and/or imaging studies have been reviewed. Correct side/site marked and visible. Medications required for procedure verified. No fire risk assessment and interventions applicable. No implant(s) inserted. 07/28/2022 2:51 PM The procedure site was prepped in the usual sterile fashion. Site: R knee joint Medications: 20 mg sodium hyaluronate 10 mg/mL(mw 2.4 -3.6 million) Outcome: Tolerated well, no immediate complications Post-injection instructions were reviewed with the patient and the patient voiced understanding of these instructions. SIGN OUT Post-procedure follow-up management communicated and Plan of Care Visit completed when applicable Ms. Julianna Tucker was advised as to contrast therapies and/or to take analgesics/anti-inflammatories as needed and all contraindications were reviewed. Supporting Information Below: Medications: Current Outpatient Medications Medication Sig famotidine (PEPCID) 20 mg tablet take 1 tablet by mouth at bedtime if needed meclizine (ANTIVERT) 25 mg tab Take 1 tablet by mouth every 6 hours as needed (dizziness). fludrocortisone (FLORINEF) 0.1 mg tablet Taking 3 times a week (Patient taking differently: Taking 1/2 a tablet 3 times a week) denosumab (PROLIA) 60 mg/mL Inject 60 mg subcutaneously one time only. Gets injection every 6 months Magnesium Glycinate 120mg 3 at night Stress, blood sugar, thyroid/hormones/adrenals/sleep/en ergy/toxins/muscles/constipation/a sthma Work up to 3 capsules with meals at night - can cause loose stools metoprolol succinate ER (TOPROL XL) 25 mg 24 hr tablet Take half tablet in the morning and 1 tablet in the evening. esomeprazole (NEXIUM) 40 mg capsule Take 1 capsule by mouth daily before breakfast. 1/2 hr before meal. anastrozole (ARIMIDEX) 1 mg tablet Take 1 mg by mouth once daily. APIXABAN (ELIQUIS ORAL) Take by mouth twice daily. dofetilide (TIKOSYN) 250 mcg capsule Take 250 mcg by mouth twice daily. acetaminophen (TYLENOL) 325 mg tablet Take 650 mg by mouth every 6 hours as needed. calcium carbonate 600 mg-cholecalciferol 200 units 600 mg-5 mcg (200 unit) tab Take 1 tablet by mouth once daily. ergocalciferol(VITAMIN D 400 UNIT CAP) Take 1,000 Units by mouth once daily. One Aspen (Pure Encapsulation) -- fish oil Take 2 capsules by mouth daily with food. No current facility-administered medications for this visit. Allergies: Adhesive Tape (Rosins), Cantaloupe, Erythromycin, Grass Pollen, Mold, Penicillins, Pollen, Prevacid [Lansoprazole], and Sulfa (Sulfonamide Antibiotics) This note was partially generated using [employer] voice recognition system, and there may be some incorrect words, spellings, and punctuation that were not noted in checking the note before saving. Maggi Aldana PA-C Euflexxa injection # 1 into right knee LOT # [id number] EXP 06/27/2023 Dipika Merchant Ma Patient presents with: Right Knee - Established Patient, Follow Up: Last injection 04/21/22 AMB ROOMING INTAKE FLOWSHEET DATA Risk Screening Do you have concerns about personal safety or safety in the home?: No Patient is here today for right knee followup. Last injection was given 04/21/22. Patient was wearing brace that was given, but not sure if she was wearing it correctly. Patient seen in 07/11/22 for leg swelling. Negative for DVT. Doctor wrapped knee in BASSEM and patient has not worn brace since. Started water PT. documented in this encounter [facility] 07-14-2022 Miscellaneous Notes Noted, thank you. Patient seen in Urgent care and sent for vascular ultrasound. Patient is negative for DVT. She did schedule a follow up in the office. Patient calls office and c/o pain and swelling to R leg. States she wore her knee brace the past few days and had to remove it d/t pain and swelling. Patient concerned d/t amount of swelling and pain that developed in a short period of time. She is concerned it may be a blood clot. Advised patient to go to UC or ED to have RLE evaluated. Patient also asking if authorization has been approved by her insurance for gel injection? documented in this encounter [facility] 07-12-2022 Miscellaneous Notes Patient given results and verbalized understanding of instructions given. Angelic Escobar Left message for patient to return call for results and recommendations.Laly Mohr LPN Let patient know her ultrasound shows no blood clot. She does have a fluid collection in the back of the knee as well, sometimes can get a cyst in the at area. Would recommend following up with ortho and continuing plan of care discussed at visit. documented in this encounter [facility] 07-11-2022 History of Present illness Narrative This note was created using CCM Benchmarkriter. Subjective Julianna Tucker is a 82 year old female. HPI Patient presents with right leg swelling over the past 2 days. She has known arthritis in her knee and was wearing a brace that was given to her from orthopedics on Thursday. She states the pain worsened in the knee so she took it off Thursday evening. She states its gotten more swollen since then. It is painful to bear weight. She does have some pain radiating to her thigh and some swelling in her ankle as well. She is on Eliquis due to history of A. fib. No history of DVT. She did have a steroid joint injection about 6 weeks ago. No fever or chills. She is on chronic Florinef due to hypotension as well. She has been taking Tylenol for pain. Denies any injury to her knee. No fall. No chest pain or shortness of breath. No swelling in the left leg. Review of Systems Cardiovascular: Positive for leg swelling. Negative for chest pain and palpitations. Gastrointestinal: Negative. Genitourinary: Negative. Musculoskeletal: Right leg swelling All other systems reviewed and are negative. PAST MEDICAL HISTORY Diagnosis Date Abnormality of gait 03/08/2013 Allergic rhinitis due to other allergen Atrial fibrillation (HCC) Chondrocalcinosis, cause unspecified, involving lower leg(712.36) 04/25/2008 CPPD right leg (on xray) - has never had an acute pseudogout attack Chronic fatigue Compression fracture of L1 lumbar vertebra (HCC) Concussion Depression Diverticulosis of colon (without mention of hemorrhage) Diverticulosis of large intestine Duodenitis without mention of hemorrhage Dysphagia Dysphagia, unspecified(787.20) 08/01/2010 Esophageal reflux rare symptoms, had more pain on Prevacid than off it Esophagitis, unspecified Fatigue 02/11/2011 Inflamed seborrheic keratosis 04/20/2008 Ingrown toenail 10/07/2010 Irritable bowel syndrome gets constipated easily, also lactose intolerant Loss of weight 02/23/2009 Lumbago 10/18/2012 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 right knee Osteoporosis 07/04/2009 osteopenia 06/2011 Other chronic dermatitis due to solar radiation 04/20/2008 Other forms of migraine resolved Pain in joint, pelvic region and thigh 04/27/2014 Recurrent UTI SOLAR LENGINES////DYSCHROMIA OTHER 04/20/2008 Tachycardia tachycardia, atrial flutter Unspecified constipation Vitamin D deficiency Current Outpatient Medications Medication Sig Dispense Refill famotidine (PEPCID) 20 mg tablet take 1 tablet by mouth at bedtime if needed 30 tablet 3 meclizine (ANTIVERT) 25 mg tab Take 1 tablet by mouth every 6 hours as needed (dizziness). 40 tablet 3 fludrocortisone (FLORINEF) 0.1 mg tablet Taking 3 times a week (Patient taking differently: Taking 1/2 a tablet 3 times a week) 12 tablet 3 denosumab (PROLIA) 60 mg/mL Inject 60 mg subcutaneously one time only. Gets injection every 6 months Magnesium Glycinate 120mg 3 at night Stress, blood sugar, thyroid/hormones/adrenals/sleep/en ergy/toxins/muscles/constipation/a sthma Work up to 3 capsules with meals at night - can cause loose stools 0 One Aspen (Pure Encapsulation) -- fish oil Take 2 capsules by mouth daily with food. 0 metoprolol succinate ER (TOPROL XL) 25 mg 24 hr tablet Take half tablet in the morning and 1 tablet in the evening. esomeprazole (NEXIUM) 40 mg capsule Take 1 capsule by mouth daily before breakfast. 1/2 hr before meal. anastrozole (ARIMIDEX) 1 mg tablet Take 1 mg by mouth once daily. APIXABAN (ELIQUIS ORAL) Take by mouth twice daily. dofetilide (TIKOSYN) 250 mcg capsule Take 250 mcg by mouth twice daily. acetaminophen (TYLENOL) 325 mg tablet Take 650 mg by mouth every 6 hours as needed. calcium carbonate 600 mg-cholecalciferol 200 units 600 mg-5 mcg (200 unit) tab Take 1 tablet by mouth once daily. ergocalciferol(VITAMIN D 400 UNIT CAP) Take 1,000 Units by mouth once daily. 0 No current facility-administered medications for this visit. PAST SURGICAL HISTORY Procedure Laterality Date CATHETER, ABLATION 08/19/2013 for afib COLONOSCOPY FLX DX W/COLLJ SPEC WHEN PFRMD 07/23/2004 repeat due 2013 COLONOSCOPY FLX DX W/COLLJ SPEC WHEN PFRMD 06/01/2014 Colonoscopy COLONOSCOPY SCREENING 2013 COLONOSCOPY SCREENING 2018 DILATION & CURETTAGE DX&/THER NONOBSTETRIC 1989 EGD TRANSORAL BIOPSY SINGLE/MULTIPLE EGD TRANSORAL BIOPSY SINGLE/MULTIPLE 08/01/2010 ESOPHAGOGASTRODUODENOSCOPY TRANSORAL DIAGNOSTIC 06/01/2014 EGD NIPPLE EXPLORATION 09/27/2009 LEFT, surgical bx OOPHORECTOMY PARTIAL/TOTAL UNI/BI AGE 26 Oophorectomy-LEFT PAST SURGICAL HISTORY OF Left 04/2017 breast mastectomy SIGMOIDOSCOPY FLX DX W/COLLJ SPEC BR/WA IF PFRMD 07/23/2004 Sigmoidoscopy FAMILY HISTORY Problem Relation Age of Onset Arthritis Mother Hypertension Mother Cancer Mother uterine other (congestive heart failure) Mother other (renal disease) Mother decreased function, not needing dialysis yet other (dementia) Father other (alcoholic) Father may have been bipolar other (dementia) Paternal Grandmother Cancer Maternal Grandmother ? uterine vs. cervical (probably uterine?) Cancer Other paternal 1st cousin - brain cancer Cancer Sister 66 Lung Breast Cancer Sister 68 Social History Tobacco Use Smoking status: Never Smokeless tobacco: Never Vaping Use Vaping Use: Never used Substance Use Topics Alcohol use: Yes Alcohol/week: 2.5 standard drinks Types: 1 Glasses of Wine (5oz) per week Comment: 1 glass per week Drug use: No Objective BP 132/82 Pulse 68 Temp 36.4 C (97.5 F) (Tympanic) Resp 18 Wt 55.1 kg (121 lb 6.4 oz) SpO2 100% BMI 19.01 kg/m Physical Exam Vitals reviewed. Constitutional: Appearance: Normal appearance. HENT: Head: Normocephalic and atraumatic. Cardiovascular: Rate and Rhythm: Normal rate and regular rhythm. Heart sounds: Normal heart sounds. Pulmonary: Effort: Pulmonary effort is normal. Breath sounds: Normal breath sounds. Musculoskeletal: Comments: Patient has moderate suprapatellar effusion on the right knee with tenderness to palpation. She has tenderness in the popliteal fossa as well. Some minimal swelling in the ankle on that side. No tenderness on palpation of the calf or thigh. Pain with weightbearing. Pedal pulses 2+. No erythema or warmth. No sign of cellulitis. Skin: General: Skin is warm and dry. Neurological: Mental Status: She is alert. Assessment and Plan ASSESSMENT/PLAN: 1. Right leg swelling - ICD9: 729.81, ICD10: M79.89 I did review her x-rays from April which showed moderate arthritis and joint space narrowing. Patient was concern for DVT, she is already on Eliquis. Her exam more likely consistent with effusion secondary to her arthritis. Ultrasound was negative for DVT. She did have a fluid collection in the popliteal fossa. No sign of infection. I did place her in an Bassem wrap. Instructed rest, ice, continue Tylenol for pain. She did also schedule follow-up with orthopedics. Red flags for ER care discussed. Patient agreeable. - US LEG VEIN DVT UNL VAS LAB Justine Irizarry PA-C documented in this encounter [facility] 07-07-2022 History of Present illness Narrative 07/07/2022 Patient presents with: Suture Removal: right index finger, 1 suture placed 1 week ago SUBJECTIVE: This is a 82 year old that is here today for suture removal. Patient has 1 suture placed on right index finger on 06/30/22. Denies redness, drainage, fever/chills. Overall doing well per patient. . PAST MEDICAL HISTORY Diagnosis Date Abnormality of gait 03/08/2013 Allergic rhinitis due to other allergen Atrial fibrillation (HCC) Chondrocalcinosis, cause unspecified, involving lower leg(712.36) 04/25/2008 CPPD right leg (on xray) - has never had an acute pseudogout attack Chronic fatigue Compression fracture of L1 lumbar vertebra (HCC) Concussion Depression Diverticulosis of colon (without mention of hemorrhage) Diverticulosis of large intestine Duodenitis without mention of hemorrhage Dysphagia Dysphagia, unspecified(787.20) 08/01/2010 Esophageal reflux rare symptoms, had more pain on Prevacid than off it Esophagitis, unspecified Fatigue 02/11/2011 Inflamed seborrheic keratosis 04/20/2008 Ingrown toenail 10/07/2010 Irritable bowel syndrome gets constipated easily, also lactose intolerant Loss of weight 02/23/2009 Lumbago 10/18/2012 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 right knee Osteoporosis 07/04/2009 osteopenia 06/2011 Other chronic dermatitis due to solar radiation 04/20/2008 Other forms of migraine resolved Pain in joint, pelvic region and thigh 04/27/2014 Recurrent UTI SOLAR LENGINES////DYSCHROMIA OTHER 04/20/2008 Tachycardia tachycardia, atrial flutter Unspecified constipation Vitamin D deficiency ALLERGIES Adhesive Tape (Rosins), Cantaloupe, Erythromycin, Grass Pollen, Mold, Penicillins, Pollen, Prevacid [Lansoprazole], and Sulfa (Sulfonamide Antibiotics) MEDICATIONS Current Outpatient Medications Medication Sig famotidine (PEPCID) 20 mg tablet take 1 tablet by mouth at bedtime if needed meclizine (ANTIVERT) 25 mg tab Take 1 tablet by mouth every 6 hours as needed (dizziness). fludrocortisone (FLORINEF) 0.1 mg tablet Taking 3 times a week (Patient taking differently: Taking 1/2 a tablet 3 times a week) denosumab (PROLIA) 60 mg/mL Inject 60 mg subcutaneously one time only. Gets injection every 6 months Magnesium Glycinate 120mg 3 at night Stress, blood sugar, thyroid/hormones/adrenals/sleep/en ergy/toxins/muscles/constipation/a sthma Work up to 3 capsules with meals at night - can cause loose stools One Aspen (Pure Encapsulation) -- fish oil Take 2 capsules by mouth daily with food. metoprolol succinate ER (TOPROL XL) 25 mg 24 hr tablet Take half tablet in the morning and 1 tablet in the evening. esomeprazole (NEXIUM) 40 mg capsule Take 1 capsule by mouth daily before breakfast. 1/2 hr before meal. anastrozole (ARIMIDEX) 1 mg tablet Take 1 mg by mouth once daily. APIXABAN (ELIQUIS ORAL) Take by mouth twice daily. dofetilide (TIKOSYN) 250 mcg capsule Take 250 mcg by mouth twice daily. acetaminophen (TYLENOL) 325 mg tablet Take 650 mg by mouth every 6 hours as needed. calcium carbonate 600 mg-cholecalciferol 200 units 600 mg-5 mcg (200 unit) tab Take 1 tablet by mouth once daily. ergocalciferol(VITAMIN D 400 UNIT CAP) Take 1,000 Units by mouth once daily. No current facility-administered medications for this visit. SOCIAL HISTORY Social History Tobacco Use Smoking status: Never Smokeless tobacco: Never Vaping Use Vaping Use: Never used Substance Use Topics Alcohol use: Yes Alcohol/week: 2.5 standard drinks Types: 1 Glasses of Wine (5oz) per week Comment: 1 glass per week Drug use: No REVIEW OF SYSTEMS See HPI OBJECTIVE: BP 122/68 Pulse 66 Temp 36.6 C (97.8 F) Resp 16 Wt 54 kg (119 lb) SpO2 100% BMI 18.64 kg/m APPEARANCE Well appearing, alert, in no acute distress, well-hydrated, well nourished. EXTREMITIES right index finger with [address] distal phalanx, dorsal aspect, wound edges well approximated. `no surrounding erythema, warmth, drainage. Antibiotic ointment and dress applied. ASSESSMENT/PLAN: 1. Visit for suture removal - ICD9: V58.32, ICD10: Z48.02 (primary diagnosis) 1 suture removed without complication Wound care reviewed 2. Laceration of right index finger without damage to nail, foreign body presence unspecified, initial encounter - ICD9: 883.0, ICD10: S61.210A Well healed Sofía Baig PA-C documented in this encounter [facility] 06-09-2022 History of Present illness Narrative Maggi Aldana PA-C Department of Orthopaedics Orthopaedics [address] [facility] [address] Dept: [phone] Dept June 09, 2022 CHIEF COMPLAINT: Established Patient and Follow Up of the Right Knee (7wks post visit- OA right knee with injection given) Ms. Julianna Tucker is a 82 year old female who presents with chronic right knee Pain, worse in the last few months. Pain is a 4-10 aching mostly along the lateral aspect of the knee. She notices the pain more with unusual motions . Initially she was doing quite well participating in physical therapy seem to be helping. Now the therapy is aggravating her knee. She has been only getting about a few weeks relief from a corticosteroid injection. She tried bracing, however the brace that she was given last month is rubbing on her skin and is somewhat uncomfortable. The patient is unable to try anti-inflammatories as she is anticoagulated. ASSESSMENT: M17.11 Primary osteoarthritis of right knee (primary encounter diagnosis) M25.561, G89.29 Chronic pain of right knee PLAN: We will get her into a different knee brace, the one that she has is rubbing her skin. She was like to try viscosupplementation, we will put in prior authorization. In the meantime I suggested some topical Voltaren. Patient agrees to plan. Ms. Julianna Tucker was advised as to contrast therapies and/or to take analgesics/anti-inflammatories as needed and all contraindications were reviewed. OBJECTIVE: Ms. Julianna Tucker is a pleasant 82 year old in no apparent distress. Gen:There were no vitals taken for this visit. nl development, non obese, no deformities ENT: Normocephalic, normal hearing, moist mucosa CV: Pulses:DP/PT= 2+ and symmetric, capillary refill < 2 secs, no peripheral edema/varicosities Skin: no rash, bruising or lesions. Good turgor. Psych: cooperative and appropriate, alert and oriented x 3, good mood and affect. Musculoskeletal: KNEE EXAM: Left: Alignment: Valgus deformity, Partially Correctable Range of motion is lacking a few degrees secondary to tight hamstrings degrees in extension and 110 degrees of flexion. Extension La degrees Pain with ROM: Yes Effusion: Slight Tender to the palpation of Posterior Knee, Lateral femoral condyle, and Lateral joint line Pain with patellar compression: Yes Stability: Anterior/Posterior stable and Varus/Valgus stable Hip Exam: flexion to 100+ degrees, full extension, internal/external rotation adequate, and no pain with log roll Neurovascular Status: Sensation Intact, Moves foot and ankle up & down, and 2+ dorsalis pedis Rationale for Viscosupplementation: Initial Request As a part of a multimodal treatment plan, we are requesting authorization of hyaluronic acid viscosupplementation injections for the improvement of symptoms related to osteoarthritis. Authorization is being requested for treatment of the Right knee. Rationale for authorization of these injections is based on the following elements: Signs and Symptoms Length of symptoms > 3 months Pain interferes with ADLs? Yes Radiographic evidence of OA? Yes Previous Treatments Bracing attempted? Yes Formal Physical Therapy (PT)/ Home Exercise Program (HEP) attempted? Patient completed a comprehensive PT program with compliance to HEP NSAID medication attempted? Contraindicated Corticosteroid injection attempted? Patient has had a previous CSI with intermittent relief Weight management attempted? No (Normal BMI) Patient continues to be symptomatic despite above treatment attempts. Requested Viscosupplementation Preferred product: Euflexxa Alternative product: Gel One or payor preferred Imaging: IMPRESSION: Progressive lateral joint compartment osteoarthrosis Vocational Trainer: PSCB Transcribe Date/Time: Apr 21 2022 3:52P Dictated by : BRIANDA OROPEZA MD This examination was interpreted and the report reviewed and electronically signed by: BRIANDA OROPEZA MD on Apr 21 2022 3:52PM EST Results-Findings * * *Final Report* * * DATE OF EXAM: Apr 21 2022 3:26PM MDO 5203 - XR KNEE 4V AP/PA BOTH+LAT/OSCAR RT / PROCEDURE REASON: [id number] * * * * Physician Interpretation * * * * PROCEDURE: Right knee INDICATION: Pain . TECHNIQUE: XR KNEE 4V AP/PA BOTH+LAT/OSCAR RT COMPARISON: 03/26/2021 FINDINGS: Significant lateral joint compartment narrowing with mild tricompartment spur formation and chondrocalcinosis, more advanced than previous. No fracture or dislocation. Small suprapatellar joint effusion. Supporting Subjective Information Below: Past Surgical History: PAST SURGICAL HISTORY Procedure Laterality Date CATHETER, ABLATION 08/19/2013 for afib COLONOSCOPY FLX DX W/COLLJ SPEC WHEN PFRMD 07/23/2004 repeat due 2013 COLONOSCOPY FLX DX W/COLLJ SPEC WHEN PFRMD 06/01/2014 Colonoscopy COLONOSCOPY SCREENING 2013 COLONOSCOPY SCREENING 2018 DILATION & CURETTAGE DX&/THER NONOBSTETRIC 1989 EGD TRANSORAL BIOPSY SINGLE/MULTIPLE EGD TRANSORAL BIOPSY SINGLE/MULTIPLE 08/01/2010 ESOPHAGOGASTRODUODENOSCOPY TRANSORAL DIAGNOSTIC 06/01/2014 EGD NIPPLE EXPLORATION 09/27/2009 LEFT, surgical bx OOPHORECTOMY PARTIAL/TOTAL UNI/BI AGE 26 Oophorectomy-LEFT PAST SURGICAL HISTORY OF Left 04/2017 breast mastectomy SIGMOIDOSCOPY FLX DX W/COLLJ SPEC BR/WA IF PFRMD 07/23/2004 Sigmoidoscopy Medications: Current Outpatient Medications Medication Sig famotidine (PEPCID) 20 mg tablet take 1 tablet by mouth at bedtime if needed meclizine (ANTIVERT) 25 mg tab Take 1 tablet by mouth every 6 hours as needed (dizziness). fludrocortisone (FLORINEF) 0.1 mg tablet Taking 3 times a week (Patient taking differently: Taking 1/2 a tablet 3 times a week) denosumab (PROLIA) 60 mg/mL Inject 60 mg subcutaneously one time only. Gets injection every 6 months Magnesium Glycinate 120mg 3 at night Stress, blood sugar, thyroid/hormones/adrenals/sleep/en ergy/toxins/muscles/constipation/a sthma Work up to 3 capsules with meals at night - can cause loose stools metoprolol succinate ER (TOPROL XL) 25 mg 24 hr tablet Take half tablet in the morning and 1 tablet in the evening. esomeprazole (NEXIUM) 40 mg capsule Take 1 capsule by mouth daily before breakfast. 1/2 hr before meal. anastrozole (ARIMIDEX) 1 mg tablet Take 1 mg by mouth once daily. APIXABAN (ELIQUIS ORAL) Take by mouth twice daily. dofetilide (TIKOSYN) 250 mcg capsule Take 250 mcg by mouth twice daily. acetaminophen (TYLENOL) 325 mg tablet Take 650 mg by mouth every 6 hours as needed. calcium carbonate 600 mg-cholecalciferol 200 units 600 mg-5 mcg (200 unit) tab Take 1 tablet by mouth once daily. ergocalciferol(VITAMIN D 400 UNIT CAP) Take 1,000 Units by mouth once daily. One Aspen (Pure Encapsulation) -- fish oil Take 2 capsules by mouth daily with food. No current facility-administered medications for this visit. Allergies: Adhesive Tape (Rosins), Cantaloupe, Erythromycin, Grass Pollen, Mold, Penicillins, Pollen, Prevacid [Lansoprazole], and Sulfa (Sulfonamide Antibiotics) ROS: General (negative for fatigue, malaise, weight loss/gain) HEENT (negative for headache, earache, recent vision changes, sinus pain, sore throat) Respiratory (no recent shortness of breath, hemoptysis) CV (negative for chest tightness, palpitations) Musculoskeletal (see HPI) Psych (no depression, anxiety) This note was partially generated using [employer] voice recognition system, and there may be some incorrect words, spellings, and punctuation that were not noted in checking the note before saving. Maggi Aldana PA-C PT ASSESSMENT - CASTING ROOM Julianna presents for Application of brace. Applied Chinedu Wrap Hinged knee brace size small to Right knee. Patient has been instructed in Care and proper application of brace. Patient signed Chinedu LEIGH electronically for billing and verbalized understanding if charged for this brace. Mari Conti Ma Patient presents with: Right Knee - Established Patient, Follow Up: 7wks post visit- OA right knee with injection given AMB ROOMING INTAKE FLOWSHEET DATA Pain Pain Level: 4 (as bad as 9) Pain Location: Knee-Right Description: Sharp, Aching Duration Amount of Time: (ongoing) Frequency: Continuous Intervention/Comfort measure: Medication, Other: See comment Comments: PT Patient is here today for right knee pain that has been ongoing. Patient was seen in [place] 7 weeks ago and given an injection; she was also given a brace to wear. Patient has been doing some physical therapy but the last week has not been able to go d/t intense pain. Last xray 04/21/22. documented in this encounter [facility] 05-16-2022 History of Present illness Narrative Reason for Visit Patient presents with: F/U 6 months Julianna Tucker is a 82 year old female who presents here today for Above Complaints.. Health Maintenance COVID-19 VACCINE(5 - Booster for Pfizer series) INFLUENZA(1) HPI. Julianna Tucker is a 81 year old female who presents today for annual exam with multiple complaints and chronic issues. Does not currently exercise. Tries to stick with an overall healthy diet her main challenge is giving up sweet stuff. Neurologist thinks she has a MCI. One concern is that her ankles are swollen on and off, she is on sodium and fludrocortisone but her bp was high, so she was stopped the sodium and the fludricort is helping with the BP etc. Balance and Strength issues: Has seen physical therapy for this previously and would like to again. been with Physical therapy previously for this. Denies any falls, but states she has to hold onto things to steady herself at times. Does not require any assistance with ambulation. Also has Chronic right shoulder pain and chronic right knee pain. Gets injections regularly for both of these. States physical therapy has helped in the past with her shoulder but made her knee pain worse. Denies any new or changing symptoms, muscle pain, swollen or red joints. Patient had balance and strength issues recently. Patient had a cortisone shot in the right knee. Patient is not focussed on knee and Physical Therapy. They are still doing balance and exercises. Chronic Dizziness and Nausea: Sees ENT for this and states there is nothing they can do. Chronic fatigue since the since sees functional medicine. Supposed to following a gluten and dairy free diet. Feels overwhelmed and depressed. she should she a counselor soon. Stresses: Major stressor: Feels the COVID pandemic has caused this to worsen. Suicidal Thoughts: No suicidal ideation, intent or plan Support: Comes from multiple sources including Counseling: with functional medicine, states she feels better when she does this and needs to start again. 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 States she drinks the correct amount of water she measures out every morning with the electrolytes as she is instructed by nephrology. Sodium level has been normal and no recent concerns. States when her sodium and electrolytes are not normal, she has stroke like symptoms and can even pass out. Denies any recent events with this. GERD: has intermittent pain to mid upper abdomen. Has statrted taking pepcid at night for the past few days. Denies increasing abdominal pain, vomiting, dark sticky stools, bright red blood in stools, or difficulty swallowing. Atrial Fibrillation - sees Dr. Cooley at [facility], last saw a few months ago. Denies any chest pain, palpitations, edema, or shortness of breath. States Dr. Cooley was No problem-specific Assessment & Plan notes found for this encounter. PAST MEDICAL HISTORY Diagnosis Date Abnormality of gait 03/08/2013 Allergic rhinitis due to other allergen Atrial fibrillation (HCC) Chondrocalcinosis, cause unspecified, involving lower leg(712.36) 04/25/2008 CPPD right leg (on xray) - has never had an acute pseudogout attack Chronic fatigue Compression fracture of L1 lumbar vertebra (HCC) Concussion Depression Diverticulosis of colon (without mention of hemorrhage) Diverticulosis of large intestine Duodenitis without mention of hemorrhage Dysphagia Dysphagia, unspecified(787.20) 08/01/2010 Esophageal reflux rare symptoms, had more pain on Prevacid than off it Esophagitis, unspecified Fatigue 02/11/2011 Inflamed seborrheic keratosis 04/20/2008 Ingrown toenail 10/07/2010 Irritable bowel syndrome gets constipated easily, also lactose intolerant Loss of weight 02/23/2009 Lumbago 10/18/2012 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 right knee Osteoporosis 07/04/2009 osteopenia 06/2011 Other chronic dermatitis due to solar radiation 04/20/2008 Other forms of migraine resolved Pain in joint, pelvic region and thigh 04/27/2014 Recurrent UTI SOLAR LENGINES////DYSCHROMIA OTHER 04/20/2008 Tachycardia tachycardia, atrial flutter Unspecified constipation Vitamin D deficiency PAST SURGICAL HISTORY Procedure Laterality Date CATHETER, ABLATION 08/19/2013 for afib COLONOSCOPY FLX DX W/COLLJ SPEC WHEN PFRMD 07/23/2004 repeat due 2013 COLONOSCOPY FLX DX W/COLLJ SPEC WHEN PFRMD 06/01/2014 Colonoscopy COLONOSCOPY SCREENING 2013 COLONOSCOPY SCREENING 2018 DILATION & CURETTAGE DX&/THER NONOBSTETRIC 1989 EGD TRANSORAL BIOPSY SINGLE/MULTIPLE EGD TRANSORAL BIOPSY SINGLE/MULTIPLE 08/01/2010 ESOPHAGOGASTRODUODENOSCOPY TRANSORAL DIAGNOSTIC 06/01/2014 EGD NIPPLE EXPLORATION 09/27/2009 LEFT, surgical bx OOPHORECTOMY PARTIAL/TOTAL UNI/BI AGE 26 Oophorectomy-LEFT PAST SURGICAL HISTORY OF Left 04/2017 breast mastectomy SIGMOIDOSCOPY FLX DX W/COLLJ SPEC BR/WA IF PFRMD 07/23/2004 Sigmoidoscopy FAMILY HISTORY Problem Relation Age of Onset Arthritis Mother Hypertension Mother Cancer Mother uterine other (congestive heart failure) Mother other (renal disease) Mother decreased function, not needing dialysis yet other (dementia) Father other (alcoholic) Father may have been bipolar other (dementia) Paternal Grandmother Cancer Maternal Grandmother ? uterine vs. cervical (probably uterine?) Cancer Other paternal 1st cousin - brain cancer Cancer Sister 66 Lung Breast Cancer Sister 68 Social History Tobacco Use Smoking status: Never Smokeless tobacco: Never Vaping Use Vaping Use: Never used Substance Use Topics Alcohol use: Yes Alcohol/week: 2.5 standard drinks Types: 1 Glasses of Wine (5oz) per week Comment: 1 glass per week Drug use: No Past medical history, appointments, medications, allergies reviewed. Pertinent Lab/Diagnostic Studies are reviewed and discussed today Current Outpatient Medications: famotidine (PEPCID) 20 mg tablet meclizine (ANTIVERT) 25 mg tab fludrocortisone (FLORINEF) 0.1 mg tablet denosumab (PROLIA) 60 mg/mL Magnesium Glycinate 120mg 3 at night Stress, blood sugar, thyroid/hormones/adrenals/sleep/en ergy/toxins/muscles/constipation/a sta One Aspen (Pure Encapsulation) -- fish oil metoprolol succinate ER (TOPROL XL) 25 mg 24 hr tablet esomeprazole (NEXIUM) 40 mg capsule anastrozole (ARIMIDEX) 1 mg tablet APIXABAN (ELIQUIS ORAL) dofetilide (TIKOSYN) 250 mcg capsule acetaminophen (TYLENOL) 325 mg tablet calcium carbonate 600 mg-cholecalciferol 200 units 600 mg-5 mcg (200 unit) tab ergocalciferol(VITAMIN D 400 UNIT CAP) Review of Systems CONSTITUTIONAL: No fevers, chills night sweats, unintended weight loss CARDIOVASCULAR: No chest pain, dyspnea, palpitations, orthopnea, PND, ankle edema. PULM: No dyspnea, unexplained cough. GI: No dysphagia/odynophagia, problematic reflux, constipation, diarrhea, changes in stool habits, hematochezia, melena. : No new urinary complaints, including dysuria, gross hematuria or pyuria. NEURO: No new balance problems, peripheral weakness/paresthesias or numbness of concern. Physical Exam BP 110/70 (BP Site: Right Arm, BP Position: Sitting, BP Cuff Size: Regular Adult) Pulse 62 Temp 36 C (96.8 F) Resp 12 Ht 170.2 cm (5' 7 ) Wt 53.5 kg (118 lb) SpO2 99% BMI 18.48 kg/m General appearance: Well appearing, alert, in no acute distress, well nourished. Skin: Skin color, texture, turgor normal, no suspicious rashes or lesions Head: Normocephalic, no masses, lesions, tenderness or abnormalities Eyes: Anicteric sclera. Pupils are equally round and reactive to light. Extraocular movements are intact. Lungs: Lungs clear to auscultation. No wheezing, rhonchi, rales Heart: RRR without murmur, gallop, or rubs. Extremities: No deformities, edema, skin discoloration, clubbing or cyanosis. Good capillary refill. ASSESSMENT/PLAN: 1. 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) - ICD9: 253.6, ICD10: E22.2 (primary diagnosis) Will recheck her numbers - BASIC METABOLIC PNL - CBC + DIFF 2. Paroxysmal atrial fibrillation (HCC) - ICD9: 427.31, ICD10: I48.0 3. Dizziness and giddiness - ICD9: 780.4, ICD10: R42 This is better for her 4. Chronic fatigue disorder - ICD9: 780.71, ICD10: R53.82 Lost touch with functional medicine, will set up again 5. Mild cognitive disorder - ICD9: 294.9, ICD10: F09 Not worsened, it is the same as before. Maurice Hackett MD documented in this encounter [facility] 04-21-2022 History of Present illness Narrative Associated Order(s): Large Joint Arthro/Inj: R knee joint Post-Procedure Diagnose(s): Primary osteoarthritis of right knee Ms. Julianna Tucker presents today for right knee corticosteroid injection. She has known right knee osteoarthritis and has been treated with injections in the past. Her last right knee injection was 06/17/2021. She was also fit for and given a right knee lateral sparing OA reaction brace. Large Joint Arthro/Inj: R knee joint Informed Consent Consent Obtained: Verbal [place] Protocol A moment to CARE was completed. SIGN IN Personnel directly involved with the procedure wore the appropriate PPE. Special Equipment: N/A Patient/Surrogate Stated/Verified: Patient name, Date of , Relevant allergies and Intended procedure TIME OUT Intended patient and procedure match the source document(s). Consent documented and matches the intended procedure. Relevant labs, photos, and/or imaging studies have been reviewed. Correct side/site marked and visible. Medications required for procedure verified. No fire risk assessment and interventions applicable. No implant(s) inserted. 04/21/2022 4:22 PM The procedure site was prepped in the usual sterile fashion. Site: R knee joint Medications: 120 mg triamcinolone acetonide 40 mg/mL Anesthetics: 1 mL lidocaine (PF) 10 mg/mL (1 %) Outcome: Tolerated well, no immediate complications Post-injection instructions were reviewed with the patient and the patient voiced understanding of these instructions. SIGN OUT No specimen collected. No instruments, equipment or retained foreign bodies applicable. Post-procedure follow-up management communicated and Plan of Care Visit completed when applicable Jessy Pina PA-C documented in this encounter [facility] 04-21-2022 Miscellaneous Notes Radiology Service Progress Note PATIENT NAME: Julianna Tucker DATE OF SERVICE: April 21, 2022 TIME: 3:27 PM PATIENT IDENTITY VERIFICATION COMPLETED USING TWO (2) IDENTIFIERS: Name and Date of confirmed by patient verbally. FALL SCREENING: Has the patient had 2 falls in the last year or 1 fall with injury or currently using an Ambulatory Assistive Device (Walker, Cane, Wheelchair, Crutches, etc.)? No PATIENT GENDER DATA: Female. status: : No status: NO. PATIENT RELEVANT IMPLANT DATA REVIEWED: Not Applicable RADIOLOGY DEPARTMENT: General X-ray: Exam(s) Completed: Lower Extremity X-Ray(s): Knee, AP / Lat / Tunne / Merchant Right PERIPHERAL IV DATA: Not applicable SIGNED BY: RT Shalom(R) April 21, 2022 3:27 PM documented in this encounter [facility] 02-07-2022 History of Present illness Narrative Subjective The history is provided by the patient. 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 HPI Julianna Tucker is a 82 year old female who presents today for CC of desiring covid test, no symptoms. Exposure on Thursday close contact greater than 10 minutes, no masking Symptoms include: Fever (?100.4F): No or Chills: No Cough: No Shortness of breath: No or Difficulty breathing: No Fatigue: No Muscle aches: No Headache: No New loss of smell or taste: No Sore throat: No Nasal congestion: No or Rhinorrhea: No Nausea: No or Vomiting: No Diarrhea: No OTC meds/remedies that patient has tried: acetaminophen and NSAIDs. High risk category assessment Age > 60 years old Exposures: Sick contacts? Yes Family or close contacts with confirmed/probable COVID-19 in last 14 days? Yes BP 126/70 Pulse 60 Temp 36.4 C (97.6 F) Resp 16 Wt 54.7 kg (120 lb 9.6 oz) SpO2 100% BMI 18.89 kg/m Social History Tobacco Use Smoking status: Never Smoker Smokeless tobacco: Never Used Vaping Use Vaping Use: Never used Substance Use Topics Alcohol use: Yes Alcohol/week: 2.5 standard drinks Types: 1 Glasses of Wine (5oz) per week Comment: 1 glass per week Drug use: No PAST MEDICAL HISTORY Diagnosis Date Abnormality of gait 03/08/2013 Allergic rhinitis due to other allergen Atrial fibrillation (HCC) Chondrocalcinosis, cause unspecified, involving lower leg(712.36) 04/25/2008 CPPD right leg (on xray) - has never had an acute pseudogout attack Chronic fatigue Compression fracture of L1 lumbar vertebra (HCC) Concussion Depression Diverticulosis of colon (without mention of hemorrhage) Diverticulosis of large intestine Duodenitis without mention of hemorrhage Dysphagia Dysphagia, unspecified(787.20) 08/01/2010 Esophageal reflux rare symptoms, had more pain on Prevacid than off it Esophagitis, unspecified Fatigue 02/11/2011 Inflamed seborrheic keratosis 04/20/2008 Ingrown toenail 10/07/2010 Irritable bowel syndrome gets constipated easily, also lactose intolerant Loss of weight 02/23/2009 Lumbago 10/18/2012 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 right knee Osteoporosis 07/04/2009 osteopenia 06/2011 Other chronic dermatitis due to solar radiation 04/20/2008 Other forms of migraine resolved Pain in joint, pelvic region and thigh 04/27/2014 Recurrent UTI SOLAR LENGINES////DYSCHROMIA OTHER 04/20/2008 Tachycardia tachycardia, atrial flutter Unspecified constipation Vitamin D deficiency I have confirmed and edited as necessary, the [facility] Review of Systems Constitutional: Negative for chills and fever. HENT: Negative for congestion, ear pain, sinus pain and sore throat. Respiratory: Negative for cough, sputum production, shortness of breath and wheezing. Cardiovascular: Negative for chest pain. Musculoskeletal: Negative for myalgias. Neurological: Negative for headaches. Objective Physical Exam Vitals and nursing note reviewed. HENT: Head: Normocephalic and atraumatic. Pulmonary: Effort: Pulmonary effort is normal. Skin: General: Skin is warm and dry. Neurological: Mental Status: She is alert and oriented to person, place, and time. Psychiatric: Mood and Affect: Affect normal. ASSESSMENT/PLAN: 1. Exposure to COVID-19 virus - ICD9: V01.79, ICD10: Z20.822 Testing ordered Home isolation if develop symptoms Return for testing if negative test and then develop symptoms. Notified in 24-48 hours with results, [facility] COVID-19 Diagnosis and treatment plan were discussed and questions were answered to the patient's satisfaction. Pt acknowledged understanding of concepts and follow up plan. Specific signs and symptoms that would indicate the need for higher level of care were discussed in detail warranting prompt ER evaluation. Alice Jenkins APRN.CNP documented in this encounter [facility] 02-03-2022 Miscellaneous Notes Sure, I hope she does not get the covid we need to just wait and watch Regards, Maurice Hackett MD Pt called in and reports that her and her were around someone yesterday that tested positive for Covid. Pt was told to wait 5 days to take Covid test or unless they begin having symptoms. Pt verbalizes understanding. Pt was told to isolate for the 5 days until test is taken. Pt reports if they come back Covid positive, she would be calling back in for the oral medications. Beginning Home Isolation Isolation is used to separate people infected with SARS-CoV-2, the virus that causes COVID-19, from people who are not infected. People who are in isolation should stay home until it s safe for them to be around others. In the home, anyone sick or infected should separate themselves from others by staying in a specific sick room or area and using a separate bathroom (if available). Isolation or Quarantine: What's the difference? Quarantine keeps someone who might have been exposed to the virus away from others. Isolation keeps someone who is infected with the virus away from others, even in their home. Who needs to isolate People who have COVID-19 People who have symptoms of COVID-19 and are able to recover at home People who have no symptoms (are asymptomatic) but have tested positive for infection with SARS-CoV-2 Steps to take Stay home except to get medical care Monitor your symptoms. Stay in a separate room from other household members, if possible Use a separate bathroom, if possible Avoid contact with other members of the household and pets Don t share personal household items, like cups, towels, and utensils Wear a mask when around other people, if you are able to When to seek emergency medical attention Look for emergency warning signs* for COVID-19. If someone is showing any of these signs, seek emergency medical care immediately: Trouble breathing Persistent pain or pressure in the chest New confusion Inability to wake or stay awake Bluish lips or face *This list is not all possible symptoms. Please call your medical provider for any other symptoms that are severe or concerning to you. Call 911 or call ahead to your local emergency facility: Notify the center machine set up operator that you are seeking care for someone who has or may have COVID-19. Ending Home Isolation - When you can be around others after you had or likely had COVID-19 When you can be around others after you had or likely had COVID-19 If You Test Positive for COVID-19 (Isolation) Everyone, regardless of vaccination status: 1. Stay home for 5 days. Note: Day 0 is your first day of symptoms or the date of collection of a positive viral test if no symptoms. Day 1 is the first full day after symptoms developed or test specimen was collected. 2. If you have no symptoms or your symptoms are resolving after 5 days, you can leave your house. 3. Continue to wear a mask around others for 5 additional days. If you have a fever, continue to stay home until your fever resolves, even if it is longer than 5 days. If You Were Exposed to Someone with COVID-19 (Quarantine) If you: 1. Have been boosted OR 2. Completed the primary series of Pfizer or Moderna vaccine within the last 6 months OR 3. Completed the primary series of J&J vaccine within the last 2 months THEN: 1. Wear a mask around others for 10 days. 2. Test on day 5, if possible. If you develop symptoms get a test and stay home. If You Were Exposed to Someone with COVID-19 (Quarantine) If you: 1. Completed the primary series of Pfizer or Moderna vaccine over 6 months ago and are not boosted OR 2. Completed the primary series of J&J over 2 months ago and are not boosted OR 3. Are unvaccinated THEN: 1. Stay home for 5 days. After that continue to wear a mask around others for 5 additional days. 2. If you can't quarantine you must wear a mask for 10 days. 3. Test on day 5 if possible. If you develop symptoms get a test and stay home. I had COVID-19 or I tested positive for COVID-19 and I have a weakened immune system If you have a weakened immune system (immunocompromised) due to a health condition or medication, you might need to stay home and isolate longer than 10 days. Talk to your healthcare provider for more information. Your doctor may work with an infectious disease expert at your local health department to determine when you can be around others. documented in this encounter [facility] 01-20-2022 Miscellaneous Notes Patient notified of results. Gauri Sanchez LPN Please let patient know that I have reviewed Recent lab work and it is within acceptable ranges and similar to previous results. Thank you Manisha Nichole APRN.CNP documented in this encounter [facility] 01-06-2022 Miscellaneous Notes Patient has been identified by name and date of : Yes Patient phones for refill(s): Pending Prescriptions Disp Refills FAMOTIDINE 20 MG TABLET 30 tablet 1 Sig: take 1 tablet by mouth at bedtime if needed MOLLY: Yes Date of last office visit in primary care: 11/13/21 Last 2 Encounter Wt Readings: Date: Wt: 11/13/2021 53.5 kg (118 lb) 10/07/2021 54.2 kg (119 lb 6.4 oz) Previous labs/tests for medication: Not applicable Please advise. Thank you. Gauri Sanchez LPN documented in this encounter [facility] 01-01-2022 Miscellaneous Notes No results yet received. Pt called back & was notified of message. Pt states apparently the lab sent over the wrong results. Pt states she had a lipid panel & all the other labs that were ordered by Mary jacobsen on the same day as the ones from Dr Enciso. Pt states she is going to call the hospital & have them send the correct results to provider. Evangelina Lai LPN Lab work had been ordered by Dr. Enciso and results should be reviewed with him. Is there other lab work that possibly isn't scanned in yet? Thank you Manisha Nichole APRN.CNP Patient calls and states that she had labs done in November at [facility]. Please advise on labs. Please review and advise, Yuli Delgado RN documented in this encounter [facility] 12-30-2021 Miscellaneous Notes Pt notified via [employer]. Called and left a voicemail for the Patient to call back and ask for a nurse to receive the providers message. Josie Blankenship RN Please let patient know that I have reordered the meclizine. Thank you aMnisha Nichole APRN.CNP Patient calls and states that meclizine is the only thing that has worked for her. Asking if new prescription can be sent to [facility] pharmacy? Please review and advise, Yuli Delgado RN Left message for return call. I absolutely can put in a consult to GI. What kind of stomach medicine does she feel she needs? The esomeprazole in Am and Pepcid in PM Is what she should be taking now. Does she need zofran for nausea? If so I can order this for her. Thank you Manisha Nichole APRN.CNP Patient had recent visit with Manisha Nichole on 11/13/21 and patient stated she had chronic nausea. States she saw ENT in past for this and there is nothing they can do. She states she takes nexium and pepcid at this time. She is asking if Manisha Nichole would order her an additional stomach medication to help with the stomach irritation that she is having daily. Requesting [facility] pharmacy in [place]. Patient also asking if she can have a referral for GI consult due to stomach issues? She would like to see Dr. Sharma possibly since she has done a colonoscopy on her in the past. Please call patient with provider's response. Thank you. documented in this encounter [facility] documented as of this encounter (statuses as of 11/14/2022) [facility] History of Past illness Narrative* Problem Noted Date Resolved Date Hospital discharge follow-up 11/18/201909/2022 Recurrent major depression in partial remission 12/20/2015 12/15/2018 Overview: She is depressed on and off , some times the climate makes her not too good too. Last Assessment & Plan: Takes the zoloft and it helps with moods, her symptoms are well controlled. Osteoporosis 07/04/2009 03/13/2012 OSTEOPENIA 07/04/2009 Other forms of migraine 05/04/20 07 Asymptomatic Postmenopausal Status (Age-Related) (Natural) 10/28/2012 documented as of this encounter (statuses as of 01/15/2023) [facility] History of Past illness Narrative* Problem Noted Date Diagnosed Date Resolved Date Hospital discharge follow-up 11/18/2019 11/12/2022 Recurrent major depression i n partial remission 12/20/2015 12/15/2018 Overview: She is depressed on and off , some times the climate makes her not too good too. Last Assessment & Plan: Takes the zoloft and it helps with moods, her symptoms are well controlled. Osteoporosis 07/04/2009 03/13/2012 OSTEOPENIA 07/04/2009 Other forms of migraine 04/15 Asymptomatic Postmenopausal Status (Age-Related) (Natural) 10/28/2012 documented as of this encounter (statuses as of 04/08/2023) [facility] History of Past illness Narrative* Problem Noted Date Diagnosed Date Resolved Date Hospital discharge follow-up 11/18/2019 11/12/2022 Recurrent major depression i n partial remission 12/20/2015 12/15/2018 Overview: She is depressed on and off , some times the climate makes her not too good too. Last Assessment & Plan: Takes the zoloft and it helps with moods, her symptoms are well controlled. Osteoporosis 07/04/2009 03/13/2012 OSTEOPENIA 07/04/2009 Other forms of migraine 04/15 Asymptomatic Postmenopausal Status (Age-Related) (Natural) 10/28/2012 documented as of this encounter (statuses as of 04/09/2023) [facility] History of Past illness Narrative* Problem Noted Date Diagnosed Date Resolved Date Hospital discharge follow-up 11/18/2019 11/12/2022 Recurrent major depression i n partial remission 12/20/2015 12/15/2018 Overview: She is depressed on and off , some times the climate makes her not too good too. Last Assessment & Plan: Takes the zoloft and it helps with moods, her symptoms are well controlled. Osteoporosis 07/04/2009 03/13/2012 OSTEOPENIA 07/04/2009 Other forms of migraine 04/15 Asymptomatic Postmenopausal Status (Age-Related) (Natural) 10/28/2012 documented as of this encounter (statuses as of 04/16/2023) [facility] History of Past illness Narrative* Problem Noted Date Diagnosed Date Resolved Date Hospital discharge follow-up 11/18/2019 11/12/2022 Recurrent major depression i n partial remission 12/20/2015 12/15/2018 Overview: She is depressed on and off , some times the climate makes her not too good too. Last Assessment & Plan: Takes the zoloft and it helps with moods, her symptoms are well controlled. Osteoporosis 07/04/2009 03/13/2012 OSTEOPENIA 07/04/2009 Other forms of migraine 04/15 Asymptomatic Postmenopausal Status (Age-Related) (Natural) 10/28/2012 documented as of this encounter (statuses as of 04/16/2023) [facility] History of Past illness Narrative* Problem Noted Date Diagnosed Date Resolved Date Hospital discharge follow-up 11/18/2019 11/12/2022 Recurrent major depression i n partial remission 12/20/2015 12/15/2018 Overview: She is depressed on and off , some times the climate makes her not too good too. Last Assessment & Plan: Takes the zoloft and it helps with moods, her symptoms are well controlled. Osteoporosis 07/04/2009 03/13/2012 OSTEOPENIA 07/04/2009 Other forms of migraine 04/15 Asymptomatic Postmenopausal Status (Age-Related) (Natural) 10/28/2012 documented as of this encounter (statuses as of 04/21/2023) [facility] History of Past illness Narrative* Problem Noted Date Diagnosed Date Resolved Date Hospital discharge follow-up 11/18/2019 11/12/2022 Recurrent major depression i n partial remission 12/20/2015 12/15/2018 Overview: She is depressed on and off , some times the climate makes her not too good too. Last Assessment & Plan: Takes the zoloft and it helps with moods, her symptoms are well controlled. Osteoporosis 07/04/2009 03/13/2012 OSTEOPENIA 07/04/2009 Other forms of migraine 04/15 Asymptomatic Postmenopausal Status (Age-Related) (Natural) 10/28/2012 documented as of this encounter (statuses as of 04/21/2023) [facility] History of Past illness Narrative* Problem Noted Date Diagnosed Date Resolved Date Hospital discharge follow-up 11/18/2019 11/12/2022 Recurrent major depression i n partial remission 12/20/2015 12/15/2018 Overview: She is depressed on and off , some times the climate makes her not too good too. Last Assessment & Plan: Takes the zoloft and it helps with moods, her symptoms are well controlled. Osteoporosis 07/04/2009 03/13/2012 OSTEOPENIA 07/04/2009 Other forms of migraine 04/15 Asymptomatic Postmenopausal Status (Age-Related) (Natural) 10/28/2012 documented as of this encounter (statuses as of 04/24/2023) [facility] History of Past illness Narrative* Problem Noted Date Diagnosed Date Resolved Date Hospital discharge follow-up 11/18/2019 11/12/2022 Recurrent major depression i n partial remission 12/20/2015 12/15/2018 Overview: She is depressed on and off , some times the climate makes her not too good too. Last Assessment & Plan: Takes the zoloft and it helps with moods, her symptoms are well controlled. Osteoporosis 07/04/2009 03/13/2012 OSTEOPENIA 07/04/2009 Other forms of migraine 04/15 Asymptomatic Postmenopausal Status (Age-Related) (Natural) 10/28/2012 documented as of this encounter (statuses as of 05/05/2023) [facility] History of Past illness Narrative* Problem Noted Date Diagnosed Date Resolved Date Hospital discharge follow-up 11/18/2019 11/12/2022 Recurrent major depression i n partial remission 12/20/2015 12/15/2018 Overview: She is depressed on and off , some times the climate makes her not too good too. Last Assessment & Plan: Takes the zoloft and it helps with moods, her symptoms are well controlled. Osteoporosis 07/04/2009 03/13/2012 OSTEOPENIA 07/04/2009 Other forms of migraine 04/15 Asymptomatic Postmenopausal Status (Age-Related) (Natural) 10/28/2012 documented as of this encounter (statuses as of 05/08/2023) [facility] History of Past illness Narrative* Problem Noted Date Diagnosed Date Resolved Date Hospital discharge follow-up 11/18/2019 11/12/2022 Recurrent major depression i n partial remission 12/20/2015 12/15/2018 Overview: She is depressed on and off , some times the climate makes her not too good too. Last Assessment & Plan: Takes the zoloft and it helps with moods, her symptoms are well controlled. Osteoporosis 07/04/2009 03/13/2012 OSTEOPENIA 07/04/2009 Other forms of migraine 04/15 Asymptomatic Postmenopausal Status (Age-Related) (Natural) 10/28/2012 documented as of this encounter (statuses as of 05/08/2023) [facility] History of Past illness Narrative* Problem Noted Date Diagnosed Date Resolved Date Hospital discharge follow-up 11/18/2019 11/12/2022 Recurrent major depression i n partial remission 12/20/2015 12/15/2018 Overview: She is depressed on and off , some times the climate makes her not too good too. Last Assessment & Plan: Takes the zoloft and it helps with moods, her symptoms are well controlled. Osteoporosis 07/04/2009 03/13/2012 OSTEOPENIA 07/04/2009 Other forms of migraine 04/15 Asymptomatic Postmenopausal Status (Age-Related) (Natural) 10/28/2012 documented as of this encounter (statuses as of 07/10/2023) [facility] History of Past illness Narrative* Problem Noted Date Diagnosed Date Resolved Date Hospital discharge follow-up 11/18/2019 11/12/2022 Recurrent major depression i n partial remission 12/20/2015 12/15/2018 Overview: She is depressed on and off , some times the climate makes her not too good too. Last Assessment & Plan: Takes the zoloft and it helps with moods, her symptoms are well controlled. Osteoporosis 07/04/2009 03/13/2012 OSTEOPENIA 07/04/2009 Other forms of migraine 04/15 Asymptomatic Postmenopausal Status (Age-Related) (Natural) 10/28/2012 documented as of this encounter (statuses as of 07/23/2023) [facility] History of Past illness Narrative* Problem Noted Date Diagnosed Date Resolved Date Hospital discharge follow-up 11/18/2019 11/12/2022 Recurrent major depression i n partial remission 12/20/2015 12/15/2018 Overview: She is depressed on and off , some times the climate makes her not too good too. Last Assessment & Plan: Takes the zoloft and it helps with moods, her symptoms are well controlled. Osteoporosis 07/04/2009 03/13/2012 OSTEOPENIA 07/04/2009 Other forms of migraine 04/15 Asymptomatic Postmenopausal Status (Age-Related) (Natural) 10/28/2012 documented as of this encounter (statuses as of 07/29/2023) [facility] History of Past illness Narrative* Problem Noted Date Diagnosed Date Resolved Date Hospital discharge follow-up 11/18/2019 11/12/2022 Recurrent major depression i n partial remission 12/20/2015 12/15/2018 Overview: She is depressed on and off , some times the climate makes her not too good too. Last Assessment & Plan: Takes the zoloft and it helps with moods, her symptoms are well controlled. Osteoporosis 07/04/2009 03/13/2012 OSTEOPENIA 07/04/2009 Other forms of migraine 04/15 Asymptomatic Postmenopausal Status (Age-Related) (Natural) 10/28/2012 documented as of this encounter (statuses as of 08/10/2023) [facility] History of Past illness Narrative* Problem Noted Date Diagnosed Date Resolved Date Hospital discharge follow-up 11/18/2019 11/12/2022 Recurrent major depression i n partial remission 12/20/2015 12/15/2018 Overview: She is depressed on and off , some times the climate makes her not too good too. Last Assessment & Plan: Takes the zoloft and it helps with moods, her symptoms are well controlled. Osteoporosis 07/04/2009 03/13/2012 OSTEOPENIA 07/04/2009 Other forms of migraine /09/2006 Asymptomatic Postmenopausal Status (Age-Related) (Natural) 10/28/2012 documented as of this encounter (statuses as of 08/17/2023) [facility] History of Past illness Narrative* Problem Noted Date Resolved Date Recurrent major depression in partial remission 12/20/2015 12/15/2018 Overview: She is depressed on and off , some times the climate makes her not too good too. Last Assessment & Plan: Takes the zoloft and it helps with moods, her symptoms are well controlled. Osteoporosis 07/04/2009 03/13/2012 OSTEOPENIA 07/04/2009 Other forms of migraine 05/04/20 07 Asymptomatic Postmenopausal Status (Age-Related) (Natural) 10/28/2012 documented as of this encounter (statuses as of 12/30/2021) [address]07-2016 History of Past illness Narrative* Problem Noted Date Resolved Date Recurrent major depression in partial remission 12/20/2015 12/15/2018 Overview: She is depressed on and off , some times the climate makes her not too good too. Last Assessment & Plan: Takes the zoloft and it helps with moods, her symptoms are well controlled. Osteoporosis 07/04/2009 03/13/2012 OSTEOPENIA 07/04/2009 Other forms of migraine 05/04/20 07 Asymptomatic Postmenopausal Status (Age-Related) (Natural) 10/28/2012 documented as of this encounter (statuses as of 01/01/2022) [facility] History of Past illness Narrative* Problem Noted Date Resolved Date Recurrent major depression in partial remission 12/20/2015 12/15/2018 Overview: She is depressed on and off , some times the climate makes her not too good too. Last Assessment & Plan: Takes the zoloft and it helps with moods, her symptoms are well controlled. Osteoporosis 07/04/2009 03/13/2012 OSTEOPENIA 07/04/2009 Other forms of migraine 05/04/20 07 Asymptomatic Postmenopausal Status (Age-Related) (Natural) 10/28/2012 documented as of this encounter (statuses as of 01/06/2022) [facility] History of Past illness Narrative* Problem Noted Date Resolved Date Recurrent major depression in partial remission 12/20/2015 12/15/2018 Overview: She is depressed on and off , some times the climate makes her not too good too. Last Assessment & Plan: Takes the zoloft and it helps with moods, her symptoms are well controlled. Osteoporosis 07/04/2009 03/13/2012 OSTEOPENIA 07/04/2009 Other forms of migraine 05/04/20 07 Asymptomatic Postmenopausal Status (Age-Related) (Natural) 10/28/2012 documented as of this encounter (statuses as of 01/20/2022) [address]07-2016 History of Past illness Narrative* Problem Noted Date Resolved Date Recurrent major depression in partial remission 12/20/2015 12/15/2018 Overview: She is depressed on and off , some times the climate makes her not too good too. Last Assessment & Plan: Takes the zoloft and it helps with moods, her symptoms are well controlled. Osteoporosis 07/04/2009 03/13/2012 OSTEOPENIA 07/04/2009 Other forms of migraine 05/04/20 07 Asymptomatic Postmenopausal Status (Age-Related) (Natural) 10/28/2012 documented as of this encounter (statuses as of 02/07/2022) [facility] History of Past illness Narrative* Problem Noted Date Resolved Date Recurrent major depression in partial remission 12/20/2015 12/15/2018 Overview: She is depressed on and off , some times the climate makes her not too good too. Last Assessment & Plan: Takes the zoloft and it helps with moods, her symptoms are well controlled. Osteoporosis 07/04/2009 03/13/2012 OSTEOPENIA 07/04/2009 Other forms of migraine 05/04/20 07 Asymptomatic Postmenopausal Status (Age-Related) (Natural) 10/28/2012 documented as of this encounter (statuses as of 04/17/2022) [facility] History of Past illness Narrative* Problem Noted Date Resolved Date Recurrent major depression in partial remission 12/20/2015 12/15/2018 Overview: She is depressed on and off , some times the climate makes her not too good too. Last Assessment & Plan: Takes the zoloft and it helps with moods, her symptoms are well controlled. Osteoporosis 07/04/2009 03/13/2012 OSTEOPENIA 07/04/2009 Other forms of migraine 05/04/20 07 Asymptomatic Postmenopausal Status (Age-Related) (Natural) 10/28/2012 documented as of this encounter (statuses as of 04/21/2022) [facility] History of Past illness Narrative* Problem Noted Date Resolved Date Recurrent major depression in partial remission 12/20/2015 12/15/2018 Overview: She is depressed on and off , some times the climate makes her not too good too. Last Assessment & Plan: Takes the zoloft and it helps with moods, her symptoms are well controlled. Osteoporosis 07/04/2009 03/13/2012 OSTEOPENIA 07/04/2009 Other forms of migraine 05/04/20 07 Asymptomatic Postmenopausal Status (Age-Related) (Natural) 10/28/2012 documented as of this encounter (statuses as of 04/22/2022) [facility] History of Past illness Narrative* Problem Noted Date Resolved Date Recurrent major depression in partial remission 12/20/2015 12/15/2018 Overview: She is depressed on and off , some times the climate makes her not too good too. Last Assessment & Plan: Takes the zoloft and it helps with moods, her symptoms are well controlled. Osteoporosis 07/04/2009 03/13/2012 OSTEOPENIA 07/04/2009 Other forms of migraine 05/04/20 07 Asymptomatic Postmenopausal Status (Age-Related) (Natural) 10/28/2012 documented as of this encounter (statuses as of 05/02/2022) [facility] History of Past illness Narrative* Problem Noted Date Resolved Date Recurrent major depression in partial remission 12/20/2015 12/15/2018 Overview: She is depressed on and off , some times the climate makes her not too good too. Last Assessment & Plan: Takes the zoloft and it helps with moods, her symptoms are well controlled. Osteoporosis 07/04/2009 03/13/2012 OSTEOPENIA 07/04/2009 Other forms of migraine 05/04/20 07 Asymptomatic Postmenopausal Status (Age-Related) (Natural) 10/28/2012 documented as of this encounter (statuses as of 05/16/2022) [facility] History of Past illness Narrative* Problem Noted Date Resolved Date Recurrent major depression in partial remission 12/20/2015 12/15/2018 Overview: She is depressed on and off , some times the climate makes her not too good too. Last Assessment & Plan: Takes the zoloft and it helps with moods, her symptoms are well controlled. Osteoporosis 07/04/2009 03/13/2012 OSTEOPENIA 07/04/2009 Other forms of migraine 05/04/20 07 Asymptomatic Postmenopausal Status (Age-Related) (Natural) 10/28/2012 documented as of this encounter (statuses as of 06/09/2022) [facility] History of Past illness Narrative* Problem Noted Date Resolved Date Recurrent major depression in partial remission 12/20/2015 12/15/2018 Overview: She is depressed on and off , some times the climate makes her not too good too. Last Assessment & Plan: Takes the zoloft and it helps with moods, her symptoms are well controlled. Osteoporosis 07/04/2009 03/13/2012 OSTEOPENIA 07/04/2009 Other forms of migraine 05/04/20 07 Asymptomatic Postmenopausal Status (Age-Related) (Natural) 10/28/2012 documented as of this encounter (statuses as of 07/07/2022) [facility] History of Past illness Narrative* Problem Noted Date Resolved Date Recurrent major depression in partial remission 12/20/2015 12/15/2018 Overview: She is depressed on and off , some times the climate makes her not too good too. Last Assessment & Plan: Takes the zoloft and it helps with moods, her symptoms are well controlled. Osteoporosis 07/04/2009 03/13/2012 OSTEOPENIA 07/04/2009 Other forms of migraine 05/04/20 07 Asymptomatic Postmenopausal Status (Age-Related) (Natural) 10/28/2012 documented as of this encounter (statuses as of 07/11/2022) [facility] History of Past illness Narrative* Problem Noted Date Resolved Date Recurrent major depression in partial remission 12/20/2015 12/15/2018 Overview: She is depressed on and off , some times the climate makes her not too good too. Last Assessment & Plan: Takes the zoloft and it helps with moods, her symptoms are well controlled. Osteoporosis 07/04/2009 03/13/2012 OSTEOPENIA 07/04/2009 Other forms of migraine 05/04/20 07 Asymptomatic Postmenopausal Status (Age-Related) (Natural) 10/28/2012 documented as of this encounter (statuses as of 07/12/2022) [facility] History of Past illness Narrative* Problem Noted Date Resolved Date Recurrent major depression in partial remission 12/20/2015 12/15/2018 Overview: She is depressed on and off , some times the climate makes her not too good too. Last Assessment & Plan: Takes the zoloft and it helps with moods, her symptoms are well controlled. Osteoporosis 07/04/2009 03/13/2012 OSTEOPENIA 07/04/2009 Other forms of migraine 05/04/20 07 Asymptomatic Postmenopausal Status (Age-Related) (Natural) 10/28/2012 documented as of this encounter (statuses as of 07/14/2022) [facility] History of Past illness Narrative* Problem Noted Date Resolved Date Recurrent major depression in partial remission 12/20/2015 12/15/2018 Overview: She is depressed on and off , some times the climate makes her not too good too. Last Assessment & Plan: Takes the zoloft and it helps with moods, her symptoms are well controlled. Osteoporosis 07/04/2009 03/13/2012 OSTEOPENIA 07/04/2009 Other forms of migraine 05/04/20 07 Asymptomatic Postmenopausal Status (Age-Related) (Natural) 10/28/2012 documented as of this encounter (statuses as of 07/29/2022) [facility] History of Past illness Narrative* Problem Noted Date Resolved Date Recurrent major depression in partial remission 12/20/2015 12/15/2018 Overview: She is depressed on and off , some times the climate makes her not too good too. Last Assessment & Plan: Takes the zoloft and it helps with moods, her symptoms are well controlled. Osteoporosis 07/04/2009 03/13/2012 OSTEOPENIA 07/04/2009 Other forms of migraine 05/04/20 07 Asymptomatic Postmenopausal Status (Age-Related) (Natural) 10/28/2012 documented as of this encounter (statuses as of 08/04/2022) [facility] History of Past illness Narrative* Problem Noted Date Resolved Date Recurrent major depression in partial remission 12/20/2015 12/15/2018 Overview: She is depressed on and off , some times the climate makes her not too good too. Last Assessment & Plan: Takes the zoloft and it helps with moods, her symptoms are well controlled. Osteoporosis 07/04/2009 03/13/2012 OSTEOPENIA 07/04/2009 Other forms of migraine 05/04/20 07 Asymptomatic Postmenopausal Status (Age-Related) (Natural) 10/28/2012 documented as of this encounter (statuses as of 08/11/2022) [address]07-2016 History of Past illness Narrative* Problem Noted Date Resolved Date Recurrent major depression in partial remission 12/20/2015 12/15/2018 Overview: She is depressed on and off , some times the climate makes her not too good too. Last Assessment & Plan: Takes the zoloft and it helps with moods, her symptoms are well controlled. Osteoporosis 07/04/2009 03/13/2012 OSTEOPENIA 07/04/2009 Other forms of migraine 05/04/20 07 Asymptomatic Postmenopausal Status (Age-Related) (Natural) 10/28/2012 documented as of this encounter (statuses as of 08/19/2022) [facility] History of Past illness Narrative* Problem Noted Date Resolved Date Recurrent major depression in partial remission 12/20/2015 12/15/2018 Overview: She is depressed on and off , some times the climate makes her not too good too. Last Assessment & Plan: Takes the zoloft and it helps with moods, her symptoms are well controlled. Osteoporosis 07/04/2009 03/13/2012 OSTEOPENIA 07/04/2009 Other forms of migraine 05/04/20 07 Asymptomatic Postmenopausal Status (Age-Related) (Natural) 10/28/2012 documented as of this encounter (statuses as of 08/20/2022) [facility] History of Past illness Narrative* Problem Noted Date Resolved Date Recurrent major depression in partial remission 12/20/2015 12/15/2018 Overview: She is depressed on and off , some times the climate makes her not too good too. Last Assessment & Plan: Takes the zoloft and it helps with moods, her symptoms are well controlled. Osteoporosis 07/04/2009 03/13/2012 OSTEOPENIA 07/04/2009 Other forms of migraine 05/04/20 07 Asymptomatic Postmenopausal Status (Age-Related) (Natural) 10/28/2012 documented as of this encounter (statuses as of 08/28/2022) [facility] History of Past illness Narrative* Problem Noted Date Resolved Date Recurrent major depression in partial remission 12/20/2015 12/15/2018 Overview: She is depressed on and off , some times the climate makes her not too good too. Last Assessment & Plan: Takes the zoloft and it helps with moods, her symptoms are well controlled. Osteoporosis 07/04/2009 03/13/2012 OSTEOPENIA 07/04/2009 Other forms of migraine 05/04/20 07 Asymptomatic Postmenopausal Status (Age-Related) (Natural) 10/28/2012 documented as of this encounter (statuses as of 09/07/2022) [facility] History of Past illness Narrative* Problem Noted Date Resolved Date Recurrent major depression in partial remission 12/20/2015 12/15/2018 Overview: She is depressed on and off , some times the climate makes her not too good too. Last Assessment & Plan: Takes the zoloft and it helps with moods, her symptoms are well controlled. Osteoporosis 07/04/2009 03/13/2012 OSTEOPENIA 07/04/2009 Other forms of migraine 05/04/20 07 Asymptomatic Postmenopausal Status (Age-Related) (Natural) 10/28/2012 documented as of this encounter (statuses as of 09/07/2022) [facility] History of Past illness Narrative* Problem Noted Date Resolved Date Recurrent major depression in partial remission 12/20/2015 12/15/2018 Overview: She is depressed on and off , some times the climate makes her not too good too. Last Assessment & Plan: Takes the zoloft and it helps with moods, her symptoms are well controlled. Osteoporosis 07/04/2009 03/13/2012 OSTEOPENIA 07/04/2009 Other forms of migraine 05/04/20 07 Asymptomatic Postmenopausal Status (Age-Related) (Natural) 10/28/2012 documented as of this encounter (statuses as of 09/08/2022) [facility] History of Past illness Narrative* Problem Noted Date Resolved Date Recurrent major depression in partial remission 12/20/2015 12/15/2018 Overview: She is depressed on and off , some times the climate makes her not too good too. Last Assessment & Plan: Takes the zoloft and it helps with moods, her symptoms are well controlled. Osteoporosis 07/04/2009 03/13/2012 OSTEOPENIA 07/04/2009 Other forms of migraine 05/04/20 07 Asymptomatic Postmenopausal Status (Age-Related) (Natural) 10/28/2012 documented as of this encounter (statuses as of 10/30/2022) [facility] Diagnosis Nausea Nausea alone Dizziness Dizziness and giddiness [facility]- [facility] Pain- Primary Generalized [facility] Diagnosis Primary osteoarthritis of right knee- Primary Primary localized osteoarthrosis, lower leg Acquired genu valgum of right knee [facility] Pain Generalized pain [facility] Diagnosis Medication management Encounter for long-term (current) use of other medications [facility] Diagnosis 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 Paroxysmal atrial fibrillation (HCC) Atrial fibrillation Dizziness and giddiness Chronic fatigue disorder Chronic fatigue syndrome Mild cognitive disorder Unspecified persistent mental disorders due to conditions classified elsewhere [facility] Diagnosis Primary osteoarthritis of right knee- Primary Primary localized osteoarthrosis, lower leg Chronic pain of right knee [facility] Diagnosis Visit for suture removal- Primary Encounter for removal of sutures Laceration of right index finger without damage to nail, foreign body presence unspecified, initial encounter [facility] Diagnosis Right leg swelling- Primary Swelling of limb [facility] Diagnosis Primary osteoarthritis of right knee- Primary Primary localized osteoarthrosis, lower leg Chronic pain of right knee [facility] Diagnosis Primary osteoarthritis of right knee- Primary Primary localized osteoarthrosis, lower leg [facility] Diagnosis Urinary frequency- Primary documented in this encounter [facility]* Diagnosis Abnormal thyroid blood test- Primary Nonspecific abnormal results of thyroid function study Other fatigue documented in this encounter [facility] note* Diagnosis Acute COVID-19- Primary [facility] [facility] Diagnosis Acute COVID-19 documented in this encounter [facility] note* Diagnosis Urinary incontinence, unspecified type- Primary Paroxysmal atrial fibrillation (HCC) Atrial fibrillation SIADH (syndrome of inappropriate ADH production) ([facility]) Other disorders of neurohypophysis Chronic fatigue disorder Chronic fatigue syndrome Dizziness and giddiness Mild cognitive disorder Unspecified persistent mental disorders due to conditions classified elsewhere Major depressive disorder, recurrent, in partial remission ([facility]) Major depressive disorder, recurrent episode, in partial or unspecified remission documented in this encounter [facility] note* Diagnosis Onychomycosis- Primary Dermatophytosis of nail Diminished pulses in lower extremity Other symptoms involving cardiovascular system Protein-calorie malnutrition, unspecified severity ([facility]) documented in this encounter [facility] note* Diagnosis Black-out (not amnesia)- Primary Syncope and collapse documented in this encounter [facility] note* Diagnosis Diarrhea, unspecified type- Primary documented in this encounter [facility] note* Diagnosis APPOINTMENT CANCELLED- Primary documented in this encounter [facility] note* Diagnosis Medication management Encounter for long-term (current) use of other medications documented in this encounter [facility] note* Diagnosis Hyponatremia- Primary Hyposmolality and/or hyponatremia documented in this encounter [facility] note* Diagnosis Anxiety and depression- Primary Dysthymic disorder Nausea Nausea alone Dizziness Dizziness and giddiness Diarrhea, unspecified type Paroxysmal atrial fibrillation (HCC) Atrial fibrillation Hyponatremia Hyposmolality and/or hyponatremia Chronic fatigue disorder Chronic fatigue syndrome Gastroesophageal reflux disease, unspecified whether esophagitis present documented in this encounter [facility] note* Diagnosis Diarrhea, unspecified type- Primary SIADH (syndrome of inappropriate ADH production) ([facility]) Other disorders of neurohypophysis Hyponatremia Hyposmolality and/or hyponatremia Anxiety Anxiety state, unspecified Chronic pain of right knee Need for influenza vaccination Need for prophylactic vaccination and inoculation against influenza [facility] Diagnosis Right knee pain, unspecified chronicity- Primary [facility] Diagnosis Primary osteoarthritis of right knee- Primary Primary localized osteoarthrosis, lower leg Chronic pain of right knee [facility] Diagnosis Chronic pain of right knee- Primary Primary osteoarthritis of right knee Primary localized osteoarthrosis, lower leg documented in this encounter [facility] for referral (narrative)* Diagnostic Procedure Only (Routine) - Authorized Specialty Diagnoses / Procedures Referred By Contac t Referred To Contact XR IMAGING Diagnoses Pain Procedures XR KNEE GENERAL 4V AP BOTH/PA BOTH/LAT/MERC RIGHT RADIOLOGIC EXAM KNEE COMPLETE 4/MORE VIEWS Jessy Pina PA-C [address] [place] [address] Xr Imaging Referral ID Status Reason Start Date Expiration Date Visits Requested Visits Authorized [id number] Authorized Auto-Generat ed Referral 04/17/2022 05/17/2023 1 1 [facility] for referral (narrative)* Diagnostic Procedure Only (Routine) - Closed Specialty Diagnoses / Procedures Referred By Contac t Referred To Contact XR IMAGING Diagnoses Pain Procedures XR KNEE GENERAL 4V AP BOTH/PA BOTH/LAT/MERC RIGHT RADIOLOGIC EXAM KNEE COMPLETE 4/MORE VIEWS Jessy Pina PA-C [address] [place] [address] Xr Imaging Referral ID Status Reason Start Date Expiration Date V isits Requested Visits Authorized [id number] Closed Auto-Generate d Referral 04/17/2022 05/17/2023 1 1 [facility] for referral (narrative)* Outpatient Procedure (Urgent) - Closed Specialty Diagnoses / Procedures Referred By Contac t Referred To [facility] Diagnoses Right leg swelling Procedures US LEG VEIN DVT UNL VAS LAB DUP-SCAN XTR VEINS UNILATERAL/LIMITED STUDY Justine Irizarry PA-C [address] [place] [address] [facility] [place] [address] [place] [address] Referral ID Status Reason Start Date Expiration Date V isits Requested Visits Authorized [id number] Closed Auto-Generate d Referral 07/11/2022 07/11/2023 1 1 [facility] for referral (narrative)* Outpatient Procedure (Routine) - Authorized Specialty Diagnoses / Procedures Referred By Contac t Referred To Contact [facility] Diagnoses Onychomycosis Diminished pulses in lower extremity Procedures PVR ANK PRESS NANCY VAS LAB NON-INVAS PHYSIOLOGIC STD EXTREMITY ART 2 LEVEL Sol Harvey [address] [place] [id number] [address] [address] Referral ID Status Reason Start Date Expiration Date Visits Requested Visits Authorized [id number] Authorized Auto-Generat ed Referral 01/14/2023 01/14/2024 1 1 [facility] for referral (narrative)* Diagnostic Procedure Only (Routine) - Closed Specialty Diagnoses / Procedures Referred By Contac t Referred To Contact XR IMAGING Diagnoses Diarrhea, unspecified type Procedures XR ABDOMEN 1V SUPINE RADIOLOGIC EXAM ABDOMEN 1 VIEW Julio Downey APRN.CNP [address] [place] [address] Xr Imaging Referral ID Status Reason Start Date Expiration Date V isits Requested Visits Authorized [id number] Closed Auto-Generate d Referral 04/16/2023 05/15/2024 1 1 [facility] for referral (narrative)* Diagnostic Procedure Only (Routine) - Pending Review Specialty Diagnoses / Procedures Referred By Contac t Referred To Contact XR IMAGING Diagnoses Right knee pain, unspecified chronicity Procedures XR KNEE GENERAL 4V AP BOTH/PA BOTH/LAT/MERC RIGHT RADIOLOGIC EXAM KNEE COMPLETE 4/MORE VIEWS Jatinder Warren MD [address] [place] [address] [place] [address] Referral ID Status Reason Start Date Expiration Date Visits Requested Visits Authorized [id number] Pending Review Auto-Generat ed Referral 3 08/27/2024 1 1 [facility] for visit Narrative* Diagnostic Procedure Only (Routine) - Closed Specialty Diagnoses / Procedures Referred By Contac t Referred To Contact XR IMAGING Diagnoses Pain Procedures XR KNEE GENERAL 4V AP BOTH/PA BOTH/LAT/MERC RIGHT RADIOLOGIC EXAM KNEE COMPLETE 4/MORE VIEWS Jessy Pina PA-C [address] [place] [address] Xr Imaging Referral ID Status Reason Start Date Expiration Date V isits Requested Visits Authorized [id number] Closed Auto-Generate d Referral 04/17/2022 05/17/2023 1 1 [facility] Summary Purpose Family History No Family History Records FoundNo Family History Records FoundNo Family History Records Found Advance Directives No Advanced Directives Records FoundDocuments on File Type Date 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 Advance Directive(s) 05/29/2020 7:38 AM Documents on File Type Date 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 Advance Directive(s) 05/29/2020 7:38 AM Health Concerns Infection Onset Date Last Indicated Resolved Time COVID-19 Rule-Out 02/07/2022 02/07/2022 Infection Onset Date Last Indicated Resolved Time COVID-19 Rule-Out 09/05/2022 09/05/2022 09/06/2022 12:05 PM EST Infection Onset Date Last Indicated Resolved Time COVID-19 Rule-Out 02/07/2022 02/07/2022 02/07/2022 11:26 PM EDT COVID-19 Rule-Out 09/05/2022 09/05/2022 09/06/2022 12:05 PM EST COVID-19 Confirmed 09/05/2022 09/05/2022 8:51 PM EST Medications Administered Section Inactive Administered Medications - up to 3 most recent administrations Medication Order MAR Action Action Date Dose Rate Site lidocaine (PF) 10 mg/mL (1 %) 1 mL injection (XYLOCAINE) 1 mL, Injection - FOR ORTHO USE ONLY, ONE TIME INJECTION, 1 dose, Starting on Thu04/21/22 at 1622, Until Thu04/21/22 at 1622 Given 04/21/2022 4:22 PM EDT 1 mL Knee, Right triamcinolone acetonide 120 mg injection (KeNALog 40) 120 mg, Injection - FOR ORTHO USE ONLY, ONE TIME INJECTION, 1 dose, Starting on Thu04/21/22 at 1622, Until Thu04/21/22 at 1622 Given 04/21/2022 4:22 PM EDT 120 mg Knee, Right Inactive Administered Medications - up to 3 most recent administrations Medication Order MAR Action Action Date Dose Rate Site sodium hyaluronate 20 mg injection (EUFLEXXA) 20 mg, Injection - FOR ORTHO USE ONLY, ONE TIME INJECTION, 1 dose, Starting on Thu07/28/22 at 1451, Until Thu07/28/22 at 1451 Given 07/28/2022 2:51 PM EST 20 mg Knee, Right Inactive Administered Medications - up to 3 most recent administrations Medication Order MAR Action Action Date Dose Rate Site sodium hyaluronate 20 mg injection (EUFLEXXA) 20 mg, Injection - FOR ORTHO USE ONLY, ONE TIME INJECTION, 1 dose, Starting on Thu08/04/22 at 1348, Until Thu08/04/22 at 1348 Given 08/04/2022 1:48 PM EST 20 mg Knee, Right Inactive Administered Medications - up to 3 most recent administrations Medication Order MAR Action Action Date Dose Rate Site sodium hyaluronate 20 mg injection (EUFLEXXA) 20 mg, Injection - FOR ORTHO USE ONLY, ONE TIME INJECTION, 1 dose, Starting on Thu08/11/22 at 1347, Until Thu08/11/22 at 1347 Given 08/11/2022 1:47 PM EST 20 mg Knee, Right Inactive Administered Medications - up to 3 most recent administrations Medication Order MAR Action Action Date Dose Rate Site sodium hyaluronate 20 mg injection (EUFLEXXA) 20 mg, Injection - FOR ORTHO USE ONLY, ONCE, 1 dose, Starting on Thu08/10/23 at 1005, Until Thu08/10/23 at 1005 Given 08/10/2023 10:05 AM EST 20 mg Knee , Right Inactive Administered Medications - up to 3 most recent administrations Medication Order MAR Action Action Date Dose Rate Site sodium hyaluronate 20 mg injection (EUFLEXXA) 20 mg, Injection - FOR ORTHO USE ONLY, ONCE, 1 dose, Starting on Thu08/17/23 at 0843, Until Thu08/17/23 at 0843 Given 08/17/2023 8:43 AM EST 20 mg Knee, Right Reason for Referral Specialty Diagnoses / Procedures Referred By Contac t Referred To Contact Urology Diagnoses Urinary incontinence, unspecified type Procedures [facility]SULT TO [facility] OFFICE[facility]74 [facility]UTES Maurice Hackett MD [address] [place] [address] Referral ID Status Reason Start Date Expiration Date Visits Requested Visits Authorized [id number] Authorized PCP Requested Referral 11/14/2022 11/14/2023 1 1 Specialty Diagnoses / Procedures Referred By Contac t Referred To Contact Orthopedics Diagnoses Chronic pain of right knee Procedures CONSULT TO [facility]THOPAEDICS OFFICE[facility] 60-74 MINUTES Manisha Nichole APRN.CNP [address] [place] [address] Referral ID Status Reason Start Date Expiration Date Visits Requested Visits Authorized [id number] Authorized PCP Requested Referral 07/08/2024 1 1 Additional Source Comments INFORMATION SOURCE (unrecogn ized section and content) DATE CREATED AUTHOR AUTHOR'S ORGANIZ ATION 04/22/2022 [facility] DATE CREATED AUTHOR AUTHOR'S ORGANIZ ATION 09/20/2023 [facility] Source Comments (unrecognize d section and content) In the event this informatio n is protected by the Federal Confidentiality of Alcohol and Drug Abuse Patient Records regulations: The Federal rules restrict any use of the information to criminally investigate or prosecute any alcohol or drug abuse patient.[facility] the event this information is protected by the Federal Confidentiality of Alcohol and Drug Abuse Patient Records regulations: The Federal rules restrict any use of the information to criminally investigate or prosecute any alcohol or drug abuse patient.[facility] the event this information is protected by the Federal Confidentiality of Alcohol and Drug Abuse Patient Records regulations: The Federal rules restrict any use of the information to criminally investigate or prosecute any alcohol or drug abuse patient.[facility] Center[facility] the event this information is protected by the Federal Confidentiality of Alcohol and Drug Abuse Patient Records regulations: The Federal rules restrict any use of the information to criminally investigate or prosecute any alcohol or drug abuse patient.[facility] the event this information is protected by the Federal Confidentiality of Alcohol and Drug Abuse Patient Records regulations: The Federal rules restrict any use of the information to criminally investigate or prosecute any alcohol or drug abuse patient.[facility] the event this information is protected by the Federal Confidentiality of Alcohol and Drug Abuse Patient Records regulations: The Federal rules restrict any use of the information to criminally investigate or prosecute any alcohol or drug abuse patient.[facility] CenterIn the event this information is protected by the Federal Confidentiality of Alcohol and Drug Abuse Patient Records regulations: The Federal rules restrict any use of the information to criminally investigate or prosecute any alcohol or drug abuse patient.[facility] Center[facility] the event this information is protected by the Federal Confidentiality of Alcohol and Drug Abuse Patient Records regulations: The Federal rules restrict any use of the information to criminally investigate or prosecute any alcohol or drug abuse patient.[facility] Center[facility] the event this information is protected by the Federal Confidentiality of Alcohol and Drug Abuse Patient Records regulations: The Federal rules restrict any use of the information to criminally investigate or prosecute any alcohol or drug abuse patient.[facility] CenterIn the event this information is protected by the Federal Confidentiality of Alcohol and Drug Abuse Patient Records regulations: The Federal rules restrict any use of the information to criminally investigate or prosecute any alcohol or drug abuse patient.[facility] Center[facility] the event this information is protected by the Federal Confidentiality of Alcohol and Drug Abuse Patient Records regulations: The Federal rules restrict any use of the information to criminally investigate or prosecute any alcohol or drug abuse patient.[facility] CenterIn the event this information is protected by the Federal Confidentiality of Alcohol and Drug Abuse Patient Records regulations: The Federal rules restrict any use of the information to criminally investigate or prosecute any alcohol or drug abuse patient.[facility] CenterIn the event this information is protected by the Federal Confidentiality of Alcohol and Drug Abuse Patient Records regulations: The Federal rules restrict any use of the information to criminally investigate or prosecute any alcohol or drug abuse patient.[facility] CenterIn the event this information is protected by the Federal Confidentiality of Alcohol and Drug Abuse Patient Records regulations: The Federal rules restrict any use of the information to criminally investigate or prosecute any alcohol or drug abuse patient.[facility] CenterIn the event this information is protected by the Federal Confidentiality of Alcohol and Drug Abuse Patient Records regulations: The Federal rules restrict any use of the information to criminally investigate or prosecute any alcohol or drug abuse patient.[facility] CenterIn the event this information is protected by the Federal Confidentiality of Alcohol and Drug Abuse Patient Records regulations: The Federal rules restrict any use of the information to criminally investigate or prosecute any alcohol or drug abuse patient.[facility] CenterIn the event this information is protected by the Federal Confidentiality of Alcohol and Drug Abuse Patient Records regulations: The Federal rules restrict any use of the information to criminally investigate or prosecute any alcohol or drug abuse patient.[facility] CenterIn the event this information is protected by the Federal Confidentiality of Alcohol and Drug Abuse Patient Records regulations: The Federal rules restrict any use of the information to criminally investigate or prosecute any alcohol or drug abuse patient.[facility] CenterIn the event this information is protected by the Federal Confidentiality of Alcohol and Drug Abuse Patient Records regulations: The Federal rules restrict any use of the information to criminally investigate or prosecute any alcohol or drug abuse patient.[facility] CenterIn the event this information is protected by the Federal Confidentiality of Alcohol and Drug Abuse Patient Records regulations: The Federal rules restrict any use of the information to criminally investigate or prosecute any alcohol or drug abuse patient.[facility] CenterIn the event this information is protected by the Federal Confidentiality of Alcohol and Drug Abuse Patient Records regulations: The Federal rules restrict any use of the information to criminally investigate or prosecute any alcohol or drug abuse patient.[facility] CenterIn the event this information is protected by the Federal Confidentiality of Alcohol and Drug Abuse Patient Records regulations: The Federal rules restrict any use of the information to criminally investigate or prosecute any alcohol or drug abuse patient.[facility] CenterIn the event this information is protected by the Federal Confidentiality of Alcohol and Drug Abuse Patient Records regulations: The Federal rules restrict any use of the information to criminally investigate or prosecute any alcohol or drug abuse patient.[facility] CenterIn the event this information is protected by the Federal Confidentiality of Alcohol and Drug Abuse Patient Records regulations: The Federal rules restrict any use of the information to criminally investigate or prosecute any alcohol or drug abuse patient.[facility] CenterIn the event this information is protected by the Federal Confidentiality of Alcohol and Drug Abuse Patient Records regulations: The Federal rules restrict any use of the information to criminally investigate or prosecute any alcohol or drug abuse patient.[facility] CenterIn the event this information is protected by the Federal Confidentiality of Alcohol and Drug Abuse Patient Records regulations: The Federal rules restrict any use of the information to criminally investigate or prosecute any alcohol or drug abuse patient.[facility] CenterIn the event this information is protected by the Federal Confidentiality of Alcohol and Drug Abuse Patient Records regulations: The Federal rules restrict any use of the information to criminally investigate or prosecute any alcohol or drug abuse patient.[facility] CenterIn the event this information is protected by the Federal Confidentiality of Alcohol and Drug Abuse Patient Records regulations: The Federal rules restrict any use of the information to criminally investigate or prosecute any alcohol or drug abuse patient.[facility] CenterIn the event this information is protected by the Federal Confidentiality of Alcohol and Drug Abuse Patient Records regulations: The Federal rules restrict any use of the information to criminally investigate or prosecute any alcohol or drug abuse patient.[facility] CenterIn the event this information is protected by the Federal Confidentiality of Alcohol and Drug Abuse Patient Records regulations: The Federal rules restrict any use of the information to criminally investigate or prosecute any alcohol or drug abuse patient.[facility] CenterIn the event this information is protected by the Federal Confidentiality of Alcohol and Drug Abuse Patient Records regulations: The Federal rules restrict any use of the information to criminally investigate or prosecute any alcohol or drug abuse patient.[facility] CenterIn the event this information is protected by the Federal Confidentiality of Alcohol and Drug Abuse Patient Records regulations: The Federal rules restrict any use of the information to criminally investigate or prosecute any alcohol or drug abuse patient.[facility] CenterIn the event this information is protected by the Federal Confidentiality of Alcohol and Drug Abuse Patient Records regulations: The Federal rules restrict any use of the information to criminally investigate or prosecute any alcohol or drug abuse patient.[facility] CenterIn the event this information is protected by the Federal Confidentiality of Alcohol and Drug Abuse Patient Records regulations: The Federal rules restrict any use of the information to criminally investigate or prosecute any alcohol or drug abuse patient.[facility] CenterIn the event this information is protected by the Federal Confidentiality of Alcohol and Drug Abuse Patient Records regulations: The Federal rules restrict any use of the information to criminally investigate or prosecute any alcohol or drug abuse patient.[facility] CenterIn the event this information is protected by the Federal Confidentiality of Alcohol and Drug Abuse Patient Records regulations: The Federal rules restrict any use of the information to criminally investigate or prosecute any alcohol or drug abuse patient.[facility] CenterIn the event this information is protected by the Federal Confidentiality of Alcohol and Drug Abuse Patient Records regulations: The Federal rules restrict any use of the information to criminally investigate or prosecute any alcohol or drug abuse patient.[facility] CenterIn the event this information is protected by the Federal Confidentiality of Alcohol and Drug Abuse Patient Records regulations: The Federal rules restrict any use of the information to criminally investigate or prosecute any alcohol or drug abuse patient.[facility] CenterIn the event this information is protected by the Federal Confidentiality of Alcohol and Drug Abuse Patient Records regulations: The Federal rules restrict any use of the information to criminally investigate or prosecute any alcohol or drug abuse patient.[facility] CenterIn the event this information is protected by the Federal Confidentiality of Alcohol and Drug Abuse Patient Records regulations: The Federal rules restrict any use of the information to criminally investigate or prosecute any alcohol or drug abuse patient.[facility] CenterIn the event this information is protected by the Federal Confidentiality of Alcohol and Drug Abuse Patient Records regulations: The Federal rules restrict any use of the information to criminally investigate or prosecute any alcohol or drug abuse patient.[facility] CenterIn the event this information is protected by the Federal Confidentiality of Alcohol and Drug Abuse Patient Records regulations: The Federal rules restrict any use of the information to criminally investigate or prosecute any alcohol or drug abuse patient.[facility] Center[facility] the event this information is protected by the Federal Confidentiality of Alcohol and Drug Abuse Patient Records regulations: The Federal rules restrict any use of the information to criminally investigate or prosecute any alcohol or drug abuse patient.[facility] Reason for Visit (unrecogniz ed section and content) Reason Comments Results Reason Comments Refill Request Reason Comments Follow Up Pt denied current sx s, reported x3 days prior Covid exposure (negative home Covid test x3 days) Reason Comments New Knee Pain Reason Comments F/U 6 months Reason Comments Established Patient 7wks post visit- OA right knee with injection given Follow Up 7wks post visit- OA right knee with injection given Reason Comments Suture Removal right index finger, 1 suture placed 1 week ago Reason Comments Patient Update Insurance Authorization Reason Comments Established Patient Last injection 2 Follow Up Last injection 2 Reason Comments Injections Euflexxa injection # 2 right knee Reason Comments Injections Established Patient Reason Comments Urinary Frequency Frequency, urgency, low back pain and lower abd ominal pain x 3- days Reason Comments Patient Update Reason Comments Nausea Pt reported + Covid exposure reported + home Covid test AM, sxs onset x2 days. Reason Comments Med Change Request Reason Comments Covid19 Concern Reason Comments F/U 6 months Reason Comments New Nail Fungus Pain Ingrown Toenail Reason Comments Dizziness Reason Comments mushy stools Reason Comments ED Follow-up ER follow up from at [facility] for Diarrhea Reason Comments Medicare Wellness Exam Annual Medicare W ellness Reason Comments Consult Patient Outreach [facility] Reason Comments Orders Reason Onset Date Comments Recheck Follow up Immunizations 07/09/2023 Flu vaccination Reason Comments Epistaxis Reason Comments Follow Up Knee Pain Last seen by Maggi on 08/11 with Maggi OA right knee with series of Euflexxa injection given Specialty Diagnoses / Procedures Referred By Phong antonio Referred To Contact Orthopedics Diagnoses Chronic pain of right knee Procedures CONSULT TO ORTHOPAEDICS OFFICE/OUTPATIENT NEW HIGH MDM 60-74 MINUTES Dayanara, JEAN-CLAUDE Dyer.NIKO [address] [place] [address] Referral ID Status Reason Start Date Expiration Date V isits Requested Visits Authorized [id number] Closed PCP Requested Referral 07/09/2023 07/08/2024 1 1 Care Teams (unrecognized sec tion and content) 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 [employer]ter [place] Relationship Specialty Start Date End Date Maurice Hackett MD [address], [place] [id number] PCP - General Internal Medicine 08/17/15 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 [employer] Relationship Specialty Start Date End Date Maurice Hackett MD [address], [place] [id number] PCP - General Internal Medicine 08/17/15 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 [place] Relationship Specialty Start Date End Date Maurice Hackett MD [address] [place] [address] PCP - General Internal Medicine 08/17/15 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 [employer] Relationship Specialty Start Date End Date Maurice Hackett MD [address] [place] [address] PCP - General Internal Medicine 08/17/15 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 [employer] Relationship Specialty Start Date End Date Maurice Hackett MD [address] [place] [address] PCP - General Internal Medicine 08/17/15 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[employer] Relationship Specialty Start Date End Date Maurice Hackett MD [address] [place] [address] PCP - General Internal Medicine 08/17/15 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 [employer] Relationship Specialty Start Date End Date Maurice Hackett MD [address] [place] [address] PCP - General Internal Medicine 08/17/15 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 [employer] Relationship Specialty Start Date End Date Maurice Hackett MD [address] [place] [address] PCP - General Internal Medicine 08/17/15 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[employer] Relationship Specialty Start Date End Date Maurice Hackett MD [address] [place] [address] PCP - General Internal Medicine 08/17/15 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[employer] Relationship Specialty Start Date End Date Maurice Hackett MD [address] [place] [address] PCP - General Internal Medicine 08/17/15 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[employer] Relationship Specialty Start Date End Date Maurice Hackett MD [address] [place] [address] PCP - General Internal Medicine 08/17/15 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[employer] Relationship Specialty Start Date End Date Maurice Hackett MD [address] [place] [address] PCP - General Internal Medicine 08/17/15 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[employer] Relationship Specialty Start Date End Date Maurice Hackett MD [address] [place] [address] PCP - General Internal Medicine 08/17/15 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[employer] Relationship Specialty Start Date End Date Maurice Hackett MD [address] [place] [address] PCP - General Internal Medicine 08/17/15 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[employer] Relationship Specialty Start Date End Date Maurice Hackett MD [address] [place] [address] PCP - General Internal Medicine 08/17/15 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 [employer] Relationship Specialty Start Date End Date Maurice Hackett MD [address] [place] [address] PCP - General Internal Medicine 08/17/15 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[employer] Relationship Specialty Start Date End Date Maurice Hackett MD [address] [place] [address] PCP - General Internal Medicine 08/17/15 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 [employer] Relationship Specialty Start Date End Date Maurice Hackett MD [address] [place] [address] PCP - General Internal Medicine 08/17/15 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 [employer] Relationship Specialty Start Date End Date Maurice Hackett MD [address] [place] [address] PCP - General Internal Medicine 08/17/15 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[employer] Relationship Specialty Start Date End Date Maurice Hackett MD [address] [facility] [place] [address] PCP - General Internal Medicine 08/17/15 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 [employer] Relationship Specialty Start Date End Date Maurice Hackett MD [address] [facility] [place] [address] PCP - General Internal Medicine 08/17/15 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 [employer] Relationship Specialty Start Date End Date Maurice Hackett MD [address] [facility] [place] [address] PCP - General Internal Medicine 08/17/15 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 [employer] Relationship Specialty Start Date End Date Maurice Hackett MD [address] [place] [address] PCP - General Internal Medicine 08/17/15 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 [employer] Relationship Specialty Start Date End Date Maurice Hackett MD [address] [place] [address] PCP - General Internal Medicine 08/17/15 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 [employer] Relationship Specialty Start Date End Date Maurice Hackett MD [address] [place] [address] PCP - General Internal Medicine 08/17/15 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 [employer] Relationship Specialty Start Date End Date Maurice Hackett MD [address] [facility] [place] [address] PCP - General Internal Medicine 08/17/15 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 This clinical summary was aggregated from multiple sources. Caution should be exercised in using it in the provision of clinical care. This summary normalizes information from multiple sources, and as a consequence, information in this document may materially change the coding, format and clinical context of patient data. In addition, data may be omitted in some cases. CLINICAL DECISIONS SHOULD BE BASED ON THE PRIMARY CLINICAL RECORDS. [employer] provides no warranty or guarantee of the accuracy or completeness of information in this document.
== END | disposition home or self-care (01) ==
LOC: OPBI 10:57
PROVIDERS: PCP Internal Medicine; Referring Provider Nurse Practitioner Family; Visit Provider Nurse Practitioner Family
DX: N64.4 Mastodynia (principal)
CPT/HCPCS: 76642

== ENCOUNTER 2023-11-21 19:33 | Observation (INO) | payer MEDICARE, OTHER, SELFPAY ==
--- NOTE | 2023-11-21 19:34 | EKG12_ITS ---
Test Reason : DYSRHYTHMIA Blood Pressure : / mmHG Vent. Rate : 075 BPM Atrial Rate : 075 BPM P-R Int : 222 ms QRS Dur : 098 ms QT Int : 436 ms P-R-T Axes : 092 061 079 degrees QTc Int : 486 ms Sinus rhythm with 1st degree A-V block Incomplete right bundle branch block Borderline ECG Confirmed by Colt Erickson ([id number]), news video editor PASTOR FREED ([id number]) on 11/24/2023 7:31:17 AM Referred By: Confirmed By:Colt Erickson
[2023-11-21 19:36] VITALS: BP 144/98; PULSE 81; RESP 18; TEMP 35.8; O2SAT 95; BMI 18.1
[2023-11-21 19:57] LABS: Absolute Lymphocyte Count 1.55 X10^3/uL (0.83-4.51); Absolute Neutrophil Count 2.9 X10^3/uL (2.0-7.7); Basophil# 0.03 X10^3/uL; Basophil% 0.6 % (0-1); Eosinophil# 0.02 X10^3/uL; Eosinophils% 0.4 % (0-5); Hematocrit 36.4 % (37-47); Hemoglobin 12.3 g/dL (12.0-15.0); Lymphocyte # 1.55 X10^3/ul (0.83-4.51); Mean Corp Hgb Conc 33.8 g/dL (32-36); Mean Corpuscular Hgb 29.4 pg (27.0-32.0); Mean Corpuscular Volume 86.9 fL (81-99); Mean Platelet Vol. 8.9 fl (6.2-12.0); Monocyte% 6.2 % (0-10); NRBC Flagged by Analyzer 0 % (0-5); Neutrophil # 2.93 X10^3/uL (2.7-7.7); Neutrophil % 60.6 % (47-70); Platelet Count 278 K/mm3 (150-450); RBC Distribution Width SD 44.6 fl (35.1-43.9); Red Blood Count 4.19 M/mm3 (4.2-5.4); White Blood Count 4.8 K/mm3 (4.4-11.0)
[2023-11-21 20:14] LABS: ALB/GLOB Ratio 0.8 RATIO (0.9-2.4); AST(SGOT) 20 U/L (15-37); Alanine Aminotransfer ALT/SGPT 21 U/L (13-56); Albumin, Serum 3.3 g/dL (3.2-5.0); Alkaline Phosphatase 78 U/L (45-117); Anion Gap 9 (5-15); BUN 11 mg/dL (7-18); BUN/Creat Ratio 13.9 RATIO (10-20); Calcium,Total 8.5 mg/dL (8.5-10.1); Chloride 94 mmol/L (98-107); Creatinine, Serum 0.79 mg/dL (0.55-1.02); EST Glomerular Filtration Rate 74 mL/min (>60); Est Glom Filt Rate - Afr Amer 90 mL/min (>60); Estimated Creatinine Clearance 45.81 ml/min; Glucose 145 mg/dL (74-106); Potassium 3.6 mmol/L (3.5-5.1); Protein, Total 7.3 g/dL (6.4-8.2); Sodium Level 126 mmol/L (136-145)
[2023-11-21 21:01] VITALS: BP 154/90; PULSE 78; RESP 18; O2SAT 98
[2023-11-21 21:03] VITALS: O2SAT 99
--- NOTE | 2023-11-21 21:12 | EDS_ITS ---
HPI History of Present Illness Chief Complaint: Nausea/Vomiting Detail of Chief Complaint: Nausea and vomiting Informant: patient Narrative Narrative: Patient presents with nausea and vomiting that started today around noon. She denies any abdominal pain. She is thrown up about 12 times. She had dry heaves. She denies diarrhea. She denies chest pain or shortness of breath. She denies cough. She denies urinary symptoms. Patient has history of hyponatremia. History of a flutter. She denies sick contacts. [facility] Medical History (Updated 11/21/23 @ 23:[address] 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 Ovarian cyst Paroxysmal atrial fibrillation Paroxysmal atrial flutter SIADH (syndrome of inappropriate ADH production) TIA (transient ischemic attack) Home Medications Bilaterl knee high compression stockings (10-20) #2 ea 05/29/22 [Rx Last Taken Unknown] clobetasol 0.05 % topical cream 1 applic topical .COMPLEX #15 grams 08/05/22 [Rx Last Taken Unknown] calcium carbonate 600 mg calcium (1,500 mg) tablet 600 mg PO DAILY 10/14/22 [History Last Taken Unknown] cholecalciferol (vitamin D3) 10 mcg (400 unit) capsule 2,000 unit PO DAILY supplement 10/14/22 [History Last Taken Unknown] esomeprazole magnesium 40 mg capsule,delayed release See Rx Instructions .Route .COMPLEX #90 caps 12/18/22 [Rx Last Taken Unknown] magnesium oxide 400 mg (241.3 mg magnesium) tablet 400 mg PO DAILY #90 tabs 01/19/23 [Rx Last Taken Unknown] metoprolol succinate 25 mg tablet,extended release 24 hr 25 mg PO .COMPLEX #135 tabs 01/28/23 [Rx Last Taken Unknown] metoclopramide HCl 10 mg tablet (Reglan) 10 mg PO Q6H PRN nausea and vomiting 3 days #18 tabs 04/25/23 [Rx Last Taken Unknown] apixaban 5 mg tablet 5 mg PO BID #60 tabs 07/23/23 [Rx Last Taken Unknown] meclizine 25 mg tablet 25 mg PO TID PRN dizziness 3 days #9 tabs 08/29/23 [Rx Last Taken Unknown] fludrocortisone 0.1 mg tablet 0.05 mg (1/2 x 0.1 mg) .Route .COMPLEX #8 tabs 09/22/23 [Rx Last Taken Unknown] dofetilide 250 mcg capsule See Rx Instructions .Route .COMPLEX #180 caps [Rx Last Taken Unknown] Allergy/AdvReac Type Severity Reaction Status Date / Time cantaloupe Allergy Severe Anaphylaxis Verified 11/21/23 19:35 grass pollen Allergy Severe Unknown Verified 11/21/23 19:35 Penicillins Allergy Severe Anaphylaxis Verified 11/21/23 19:35 Sulfa (Sulfonamide Allergy Unknown Other Verified 11/21/23 19:35 Antibiotics) mold Allergy Unknown Verified 11/21/23 19:35 pollen extracts Allergy Unknown Verified 11/21/23 19:35 erythromycin base AdvReac Severe Unknown Verified 11/21/23 19:35 lansoprazole [From Prevacid] AdvReac Severe Nausea/Vom/ Verified 11/21/23 19:35 Diarrhea adhesive tape AdvReac Intermediate Rash Verified 11/21/23 19:35 Family History Father Unknown family medical history Mother Uterine cancer Thyroid disorder Kidney disease Hypertension CHF (congestive heart failure) Arthritis Surgical History H/O breast biopsy H/O left mastectomy H/O lymph node biopsy History of cataract surgery History of colonoscopy (05/2019) History of dilation and curettage History of esophagogastroduodenoscopy (EGD) (05/2019) History of left heart catheterization (09/2012) History of radiofrequency ablation (RFA) procedure for cardiac arrhythmia (08/2013) History of removal of ovarian cyst Social History (Updated 11/21/23 @ 23:[address] Michelle Hunt MD) household members: spouse Smoking Status: Never smoker alcohol intake: current alcohol intake frequency: holidays/special occasions only substance use type: does not use caffeine: Yes what type of physical activity do you participate in: walking and yoga frequency: 3-4 times per week seatbelt use: always do you feel safe at home: Yes additional social history: -Tony Patient and are both retired ROS ROS ED Review of Systems ROS Unobtainable: other Constitutional Constitutional ED: Reports lethargy; Denies chills, fever(s), sweats or weight loss Eyes Eyes: Denies blurry vision, change in vision or diplopia ENT ENT ED: Denies rhinorrhea or sore throat Cardiovascular Cardiovascular: Denies chest pain, orthopnea or racing heartbeat Respiratory/Chest Respiratory/Chest: Denies cough, dyspnea, dyspnea on exertion, orthopnea or sputum Gastrointestinal Gastrointestinal: Reports nausea and vomiting; Denies abdominal pain or diarrhea Genitourinary Genitourinary ED: Denies dysuria, hematuria or urinary frequency Musculoskeletal Musculoskeletal: Denies arthralgias, back pain, myalgias or neck pain Integumentary Denies abscess, Abrasions or rash Neurologic Neurologic: Denies headache(s) or weakness Psychiatric Psychiatric: Denies anxiety, depression or suicidal thoughts Endocrine Endocrinology: Denies polydipsia, polyphagia or polyuria Hematologic/Lymphatic Hematologic/Lymphatic: Denies easy bleeding, easy bruising or lymphadenopathy Allergic/Immunologic Allergic/Immunologic ED: Denies mouth swelling, tongue swelling or urticaria EXAM Physical Exam Const Vital Signs: 11/21/23 19:36 11/21/23 21:01 11/21/23 21:03 Temperature 96.4 F L Temperature Source Temporal Pulse Rate 81 78 Respiratory Rate 18 18 Blood Pressure 144/98 H 154/90 H Blood Pressure Mean 113 111 Pulse Ox 95 98 99 Oxygen Delivery Method Room Air Room Air Room Air 11/21/23 22:10 Temperature Temperature Source Pulse Rate 77 Respiratory Rate 16 Blood Pressure 143/76 H Blood Pressure Mean 98 Pulse Ox 97 Oxygen Delivery Method Room Air Positive well nourished and well developed General Appearance ED: well developed and NAD HEENT Reports TM's clear and dry mucous membranes; Denies moist mucous membranes normocephalic and atraumatic; Negative for trauma or tenderness Tympanic Membrane ED: Yes TM's clear Mouth ED: Yes dry mucous membranes Mouth: dry mucous membranes Eyes PERRL and EOMs intact bilaterally General Eye ED: Negative for pale conjunctiva or scleral icterus Neck no lymphadenopathy, supple and no JVD General: Negative for tenderness Chest Wall inspection of chest normal and palpation of chest normal Chest: Negative for tenderness Resp normal respiratory effort and clear to auscultation bilaterally Effort and Inspection: Negative for respiratory distress or pain with movement Auscultation: Negative for rhonchi, wheezes or diminished lung sounds Cardio regular rate, regular rhythm, S1 normal heart sound, S2 normal heart sound and no murmurs Peripheral Pulses: pulses 2+ throughout GI normal to inspection, nondistended, normoactive bowel sounds, soft to palpation, non-tender, non-distended and no masses Back/Spine no CVA tenderness and no thoracic nor lumbar tenderness Extremity normal to inspection General Extremety ED: Negative for edema General Extremity: Negative for edema Neuro oriented x3, CN's II-XII intact bilaterally, no sensory deficits noted and gait normal Sensorium / Orientation: awake, alert, oriented to person, oriented to place and oriented to time Motor Exam: strength 5/5 throughout and strength abnormal Psych mental status grossly normal Skin no rashes or lesions noted and no wounds MDM MDM MDM Narrative Medical decision making narrative: Patient presents with vomiting that started earlier today. Denies abdominal pain. Clinically looks dry. She has history of hyponatremia. IV line established. She was given a liter normal saline fluid bolus in triage as department was full and busy. Lab workup obtained showed WBC count of 4.8 with hemoglobin 12.3 and platelet count of 278. Chemistries were significant for sodium of 126 with potassium of 3.6 and chloride of 94. BUN was 11 and creatinine 0.79. Glucose 145. LFTs unremarkable. Urinalysis was normal. Patient was given Reglan and even after Reglan did have dry heaves. She continues to not feel well. Case will be discussed with hospitalist to evaluate patient for an observation. And for hydration. Lab Data Attestation: I reviewed the patient's lab results. Labs: Laboratory Results - last 24 hr 11/21/23 11/21/23 19:55 21:20 WBC 4.8 RBC 4.19 L Hgb 12.3 Hct 36.4 L MCV 86.9 MCH 29.4 MCHC 33.8 RDW Std Deviation 44.6 H RDW Coeff of Idania 14.0 Plt Count 278 MPV 8.9 Immature Gran % (Auto) 0.200 Neut % (Auto) 60.6 Lymph % (Auto) 32.0 [place] % (Auto) 6.2 Eos % (Auto) 0.4 Baso % (Auto) 0.6 Absolute Neuts (auto) 2.9 Absolute Lymphs (auto) 1.55 Nucleated RBC % 0 Sodium 126 L Potassium 3.6 Chloride 94 L Carbon Dioxide 23.0 Anion Gap 9 BUN 11 Creatinine 0.79 Estim Creat Clear Calc 45.81 Est GFR (MDRD) Af Amer 90 Est GFR (MDRD) Non-Af 74 BUN/Creatinine Ratio 13.9 Glucose 145 H Calcium 8.5 Phosphorus 2.5 Magnesium 2.1 Total Bilirubin 0.90 AST 20 ALT 21 Alkaline Phosphatase 78 Total Protein 7.3 Albumin 3.3 Globulin 4.0 Albumin/Globulin Ratio 0.8 L Urine Color Yellow Urine Clarity Clear Urine pH 8.0 Ur Specific [place] 1.015 Urine Protein 15 H Urine Glucose (UA) 100 H Urine Ketones 15 H Urine Occult Blood 10 H Urine Nitrite Negative Urine Bilirubin Negative Urine Urobilinogen Normal Ur Leukocyte Esterase Negative Urine RBC 0 SEEN Urine WBC 0 SEEN Ur Squamous Epith Cells 0 SEEN Urine Bacteria 0 SEEN Urine Mucus 0 SEEN EKG Initial EKG: Attestation: I personally reviewed and interpreted this EKG as follows: Comments: Sinus rhythm with ventricular rate of 75 bpm with incomplete right bundle branch block Discharge Plan Dx/Rx/DC Orders Clinical Impression: Intractable nausea and vomiting, History of atrial flutter, Acute hyponatremia Disposition Disposition: [facility]
[2023-11-21] MEDS: 0.9% Normal Saline (1000mL) 1,000 ML 1000 ML IV (21:18)
[2023-11-21] MEDS: Metoclopramide 10 MG/2 ML Vial IV (21:18)
[2023-11-21 21:24] LABS: Bacteria 0 SEEN /hpf (None Seen); Color, Urine Yellow (Yellow); Glucose, Dipstick 100 mg/dl (Normal); Ketone-Dipstick 15 mg/dl (Negative); Leukocyte Esterase-Dipstick Negative /ul (Negative); Mucous, Urine 0 SEEN /hpf (<or=2+); Nitrite-Dipstick Negative (Negative); Occult Blood-Urine 10 /ul (Negative); Protein-Dipstick 15 mg/dl (Negative); Red Blood Cells-Urine 0 SEEN /hpf (0-5); Specific Gravity, Urine 1.015 (1.002-1.030); Squamous Epithelial Cells - UA 0 SEEN /hpf (5-10); Urine Bilirubin Dipstick Negative (Negative); Urine Clarity Clear (Clear); Urine Urobilinogen Normal (Normal); White Blood Cells 0 SEEN /hpf (0-5)
--- OUTSIDE RECORDS SUMMARY | 2023-11-21 21:29 | XMS RPT_ITS | CCD ---
Author Name Unknown Address [address] [place] [address] Organization [facility] Care Team Providers Care Application Development Intern Name Role Phone Roof STEEL MANAGER, Handy Sullivan Unavailable RON GARCÍA Unavailable Unavailable JONATAHN LLOYD Unavailable Unavailable GANTA, MAURICE C Unavailable Unavailable GANTA, MAURICE C Unavailable Unavailable Ganta Maurice THAO Primary Care Provider Maurice Hackett MD Primary Care Provider Karly THAO Maurice Primary Care Provider GANTA, MAURICE Primary Care Unavailable JATINDER WARREN Attending Unavailable GANTA, MAURICE Primary Care Unavailable SOL HARVEY Attending Unavailable GANTA, MAURICE Primary Care Unavailable SOL HARVEY Referring Unavailable GANTA, MAURICE Primary Care Unavailable GANTA, MAURICE Primary Care Unavailable OLDERMANISHA Attending Unavailable GANTA, MAURICE Primary Care Unavailable HALLE SAMPSON Attending Unavailable GANTA, MAURICE Primary Care Unavailable AMNISHA NICHOLE Attending Unavailable GANTA, MAURICE Primary Care Unavailable JOSE RANGEL Attending Unavailable GANTA, MAURICE Primary Care Unavailable HALLE SAMPSON Attending Unavailable GANTA, MAURICE Primary Care Unavailable JATINDER WARREN Attending Unavailable OLDERMANISHA Referring Unavailable GANTA, MAURICE Primary Care Unavailable JATINDER WARREN Referring Unavailable GANTA, MAURICE Primary Care Unavailable CAMILLAHALLE Referring Unavailable GANTA, MAURICE Primary Care Unavailable CAMILLAHALLE Referring Unavailable GANTA, MAURICE Primary Care Unavailable CARLOS SINGH Attending Unavailable GANTA, MAURICE Primary Care Unavailable JULIO DOWNEY Referring Unavailable MAGGI ALDANA Attending Unavailable GANTA, MAURICE Primary Care Unavailable GANTA, MAURICE Primary Care Unavailable JULIO DOWNEY Attending Unavailable GANTA, MAURICE Primary Care Unavailable JULIO DOWNEY Referring Unavailable [facility] Unavailable OLDERMANISHA Referring Unavailable [facility] Care Unavailable JULIO DOWNEY [facility] OLDER MANISHA Attending Unavailable [facility] Care Unavailable OLDER MANISHA Referring Unavailable Allergies Allergy Classification Reported Allergen(s) Allergy Type Date of Onset Reaction(s) Facility (3 sources) Adhesive Tape; Translations: [ADHESIVE TAPE] allergy to substance 7 Unknown [facility] Work Phone: [phone] (20 sources) bee pollen; Translations: [POLLEN] allergy to substance 5 unknown [facility] Work Phone: [phone]) (20 sources) cantaloupe allergenic extract; Translations: [CANTALOUPE] Drug Allergy 5 unknown [facility] Work Phone: [phone]) (20 sources) erythromycin; Translations: [ERYTHROMYCIN] Drug Allergy 5 GI Upset [facility] Work Phone: [phone]) (20 sources) Grass pollen; Translations: [GRASS POLLEN] drug allergy 5 unknown [facility] Work Phone: [phone] (3 sources) lansoprazole Drug Allergy 7 unknown [facility] Work Phone: [phone] (20 sources) mold extract; Translations: [MOLD] Drug Allergy 5 unknown [facility] Work Phone: [phone] (3 sources) penicillin Drug Allergy 1 Inside of mouth swelled [facility] Work Phone: [phone] (3 sources) Sulfonamides (Antibiotic) drug allergy 7 unknown [facility] Work Phone: [phone]) (20 sources) Adhesive Tape; Translations: [ADHESIVE TAPE (ROSINS)] Allergy to substance [address] [facility] Work Phone: (20 sources) lansoprazole; Translations: [LANSOPRAZOLE] Drug Allergy [address] [facility] Work Phone: [phone] (6 sources) Penicillins; Translations: [PENICILLINS] Propensity to adverse reactions 5 Rash, Swelling [facility] Work Phone: (20 sources) Sulfonamides (Antibiotic); Translations: [SULFA (SULFONAMIDE ANTIBIOTICS)] Propensity to adverse reactions 5 [facility] Work Phone: (20 sources) Penicillins Propensity to adverse reactions 5 Rash, Swelling [facility] Work Phone: (12 sources) Vibegron; Translations: [VIBEGRON] Drug Intolerance [address] [facility] Work Phone: Medications Current Medications [...] MG TABS As needed, takes occasionally ACETAMINOPHEN [id number] Jacquelin Mclean Problems Active Problems Problem Classification [...] [Gastro-esophageal reflux disease without esophagitis] 03-13-2012 Chronic Genitourinary symptoms and ill-defined conditions (1 source) Urinary incontinence; Translations: [Unspecified urinary incontinence] Chronic Genitourinary symptoms and ill-defined conditions (1 source) Increased frequency of urination; Translations: [Frequency of micturition] Episodic Headache; including migraine (3 sources) Ophthalmic migraine; 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 with aura, not intractable, without status migrainosus] Onset: 4 11-02-2023 Chronic Heart valve disorders (20 sources) Mitral valve prolapse; Translations: [Nonrheumatic mitral (valve) prolapse] Onset: 1 12-19-2010 Chronic Immunizations and screening for infectious disease (2 sources) Contact with or exposure to other viral diseases; Translations: [Exposure to COVID-19 virus] Episodic Malaise and fatigue (20 sources) Chronic fatigue syndrome; Translations: [Chronic fatigue, unspecified] Onset: 1 09-09-2021 Chronic Malaise and fatigue (6 sources) Fatigue; Translations: [Other fatigue] Onset: 5 02-12-2015 Episodic Mood disorders (1 source) Recurrent major depression in partial remission; Translations: [Major depressive disorder, recurrent, in partial remission] Chronic Nausea and vomiting (2 sources) Nausea; Translations: [Nausea] Episodic Nonmalignant breast conditions (1 source) Pain of breast; Translations: [Mastodynia] 10-30-2023 Episodic Nutritional deficiencies (20 sources) Deficiency of macronutrients; Translations: [Unspecified protein-calorie [...] (2 sources) Patient encounter status; Translations: [Other nursing home (current) drug therapy] Episodic Other aftercare (1 source) Removal of sutures done; Translations: [Encounter for removal of sutures] Episodic Other bone disease and musculoskeletal deformities (1 source) Costal chondritis; Translations: [Chondrocostal junction syndrome [Tietze]] 10-30-2023 Episodic Other circulatory disease (1 source) Abnormal [...] unspecified] 04-16-2023 Episodic Other nervous system disorders (2 sources) Aphasia; Translations: [Aphasia] 11-02-2023 Chronic Other nervous system disorders (1 source) Aphasia; Translations: [Aphasia] Onset: 4 Chronic Other nervous system disorders (1 source) Other chronic pain; Translations: [Chronic pain of right knee] Onset: 9 Chronic Residual codes; unclassified (2 sources) Pain; Translations: [Pain, unspecified] Episodic Syncope (1 source) Syncope and collapse; Translations: [Syncope and collapse] 04-08-2023 Episodic Transient cerebral ischemia (3 sources) Transient cerebral ischemia; Translations: [Transient cerebral ischemic attack, unspecified] Onset: 4 11-02-2023 Chronic Unclassified (8 sources) Electrocardiogram abnormal; Translations: [Thyroid function tests [...] Translations: [Dizziness and giddiness] Onset: 03-08-2013 Episodic Fluid and electrolyte disorders (20 sources) Hyponatremia; Translations: [Hypo-osmolality and hyponatremia] Onset: 02-11-2011 03-13-2012 Episodic Mycoses (3 sources) Onychomycosis; Translations: [Tinea unguium] Onset: 01-29-2023 [...] malignant neoplasm] Onset: 11-18-2019 11-18-2019 Episodic Other aftercare (1 source) Other nursing home (current) drug therapy; Translations: [Medication management] Onset: 07-06-2023 Episodic Other bone disease and musculoskeletal deformities [...] right shoulder] Onset: 11-11-2016 11-11-2016 Episodic Other non-traumatic joint disorders (20 sources) Pain in right knee; Translations: [Pain in joint, lower leg] Onset: 10-06-2018 10-06-2018 Episodic Other skin disorders (3 sources) Mass [...] Time Vital Sign Value Performing Clinician Facility 11-02-2023 15:20-0500 Body weight 53.66 kg Halle Camilla [employer] 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VISOR [employer] Work Phone: [facility] 11-02-2023 15:20-0500 Diastolic blood pressure 64 mm[Hg] Halle Camilla [employer] 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VISOR [employer] Work Phone: [facility] 11-02-2023 15:20-0500 Heart rate 64 /min Halle Camilla [employer] 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VISOR [employer] Work Phone: [facility] 11-02-2023 15:20-0500 Respiratory rate 16 /min Halle Camilla [employer] 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VISOR [employer] Work Phone: [facility] 11-02-2023 15:20-0500 SaO2% (BldA) [Mass fraction] 99 % Halle Camilla [employer] 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VISOR [employer] Work Phone: [facility] 11-02-2023 15:20-0500 Systolic blood pressure 122 mm[Hg] Halle Camilla [employer] 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VISOR [employer] Work Phone: [facility] 07-09-2023 12:59-0400 Body weight 54.43 kg Manisha Older [employer] 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VISOR [employer] Work Phone: [facility] 07-09-2023 12:59-0400 Diastolic blood pressure 80 mm[Hg] Manisha Older [employer] 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VISOR [employer] Work Phone: [facility] 07-09-2023 12:59-0400 Heart rate 62 /min Manisha Older [employer] 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VISOR [employer] Work Phone: [facility] 07-09-2023 12:59-0400 Respiratory rate 16 /min Manisha Older [employer] 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VISOR [employer] Work Phone: [facility] 07-09-2023 12:59-0400 SaO2% (BldA) [Mass fraction] 99 % Manisha Older [employer] 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VISOR [employer] Work Phone: [facility] 07-09-2023 12:59-0400 Systolic blood pressure 130 mm[Hg] Manisha Older [employer] 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VISOR [employer] Work Phone: [facility] 05-08-2023 08:00-0400 Body temperature 97.39 [degF] Manisha Older [employer] 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VISOR [employer] Work Phone: [facility] 05-08-2023 08:00-0400 Body weight 52.62 kg Manisha Older [employer] 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VISOR [employer] Work Phone: [facility] 05-08-2023 08:00-0400 Diastolic blood pressure 80 mm[Hg] Manisha Older [employer] 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VISOR [employer] Work Phone: [facility] 05-08-2023 08:00-0400 Heart rate 60 /min Manisha Older [employer] 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VISOR [employer] Work Phone: [facility] 05-08-2023 08:00-0400 Respiratory rate 16 /min Manisha Older [employer] 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VISOR [employer] Work Phone: [facility] 05-08-2023 08:00-0400 Systolic blood pressure 128 mm[Hg] Manisha Older [employer] 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VISOR [employer] Work Phone: [facility] 04-16-2023 07:19-0400 Diastolic blood pressure 82 mm[Hg] Jose Rangel [employer] DEPARTMENT.SERVICE ATTENDANT Work Phone: [facility] 04-16-2023 07:19-0400 Systolic blood pressure 138 mm[Hg] Jose Rangel [employer] DEPARTMENT.SERVICE ATTENDANT Work Phone: [facility] 04-16-2023 07:13-0400 Body temperature 96.01 [degF] Jose Rangel [employer] DEPARTMENT.SERVICE ATTENDANT Work Phone: [facility] 04-16-2023 07:13-0400 Body weight 53.52 kg Jose Rangel [employer] DEPARTMENT.SERVICE ATTENDANT Work Phone: [facility] 04-16-2023 07:13-0400 Heart rate 66 /min Jose Rangel [employer] DEPARTMENT.SERVICE ATTENDANT Work Phone: [facility] 04-16-2023 07:13-0400 Respiratory rate 18 /min Jose Rangel [employer] DEPARTMENT.SERVICE ATTENDANT Work Phone: [facility] 04-16-2023 07:13-0400 SaO2% (BldA) [Mass fraction] 99 % Jose Rangel [employer] DEPARTMENT.SERVICE ATTENDANT Work Phone: [facility] 11-14-2022 08:33-0500 Body height 170.2 cm Maurice Hackett MD Work Phone: [facility] 11-14-2022 08:33-0500 Body temperature 96.01 [degF] Maurice Hackett MD Work Phone: [facility] 11-14-2022 08:33-0500 Body weight 51.71 kg Maurice Hackett MD Work Phone: [facility] 11-14-2022 08:33-0500 Diastolic blood pressure 62 mm[Hg] Maurice Hackett MD Work Phone: [facility] 11-14-2022 08:33-0500 Heart rate 64 /min Maurice Hackett MD Work Phone: [facility] 11-14-2022 08:33-0500 Respiratory rate 12 /min Maurice Hackett MD Work Phone: [facility] 11-14-2022 08:33-0500 SaO2% (BldA) [Mass fraction] 100 % Maurice Hackett MD Work Phone: [facility] 11-14-2022 08:33-0500 Systolic blood pressure 122 mm[Hg] Maurice Hackett MD Work Phone: [facility] 09-05-2022 17:40-0500 Body temperature 98.4 [degF] Ron García MD Work Phone: [facility] 09-05-2022 17:40-0500 Body weight 53.43 kg Ron García MD Work Phone: [facility] 09-05-2022 17:40-0500 Diastolic blood pressure 82 mm[Hg] Ron García MD Work Phone: [facility] 09-05-2022 17:40-0500 Heart rate 70 /min Ron García MD Work Phone: [facility] 09-05-2022 17:40-0500 Respiratory rate 18 /min Ron García MD Work Phone: [facility] 09-05-2022 17:40-0500 SaO2% (BldA) [Mass fraction] 99 % Ron García MD Work Phone: [facility] 09-05-2022 17:40-0500 Systolic blood pressure 138 mm[Hg] Ron García MD Work Phone: [facility] 08-19-2022 08:52-0500 Body temperature 97.59 [degF] Lori Patel APRN.SUPERVISOR [employer] Work Phone: [facility] 08-19-2022 08:52-0500 Body weight 52.34 kg Lori Patel APRN.SUPERVISOR [employer] Work Phone: [facility] 08-19-2022 08:52-0500 Diastolic blood pressure 84 mm[Hg] Lori Patel APRN.SUPERVISOR [employer] Work Phone: [facility] 08-19-2022 08:52-0500 Heart rate 74 /min Lori Patel APRN.SUPERVISOR [employer] Work Phone: [facility] 08-19-2022 08:52-0500 Respiratory rate 18 /min Lori Patel APRN.SUPERVISOR [employer] Work Phone: [facility] 08-19-2022 08:52-0500 SaO2% (BldA) [Mass fraction] 99 % Lori Patel APRN.SUPERVISOR [employer] Work Phone: [facility] 08-19-2022 08:52-0500 Systolic blood pressure 144 mm[Hg] Lori Patel APRN.SUPERVISOR [employer] Work Phone: [facility] 07-11-2022 11:25-0400 Body temperature 97.5 [degF] Justine Athy PA-C Work Phone: [facility] 07-11-2022 11:25-0400 Body weight 55.07 kg Justine Athy PA-C Work Phone: [facility] 07-11-2022 11:25-0400 Diastolic blood pressure 82 mm[Hg] Justine Athy PA-C Work Phone: [facility] 07-11-2022 11:25-0400 Heart rate 68 /min Justine Athy PA-C Work Phone: [facility] 07-11-2022 11:25-0400 Respiratory rate 18 /min Justine Athy PA-C Work Phone: [facility] 07-11-2022 11:25-0400 SaO2% (BldA) [Mass fraction] 100 % Justine Athy PA-C Work Phone: [facility] 07-11-2022 11:25-0400 Systolic blood pressure 132 mm[Hg] Justine Athy PA-C Work Phone: [facility] 07-07-2022 10:05-0400 Body temperature 97.81 [degF] Sofía Bogner PA-C Work Phone: [facility] 07-07-2022 10:05-0400 Body weight 53.98 kg Sofía Bogner PA-C Work Phone: [facility] 07-07-2022 10:05-0400 Diastolic blood pressure 68 mm[Hg] Sofía Bogner PA-C Work Phone: [facility] 07-07-2022 10:05-0400 Heart rate 66 /min Sofía Bogner PA-C Work Phone: [facility] 07-07-2022 10:05-0400 Respiratory rate 16 /min Sofía Bogner PA-C Work Phone: [facility] 07-07-2022 10:05-0400 SaO2% (BldA) [Mass fraction] 100 % Sofía Bogner PA-C Work Phone: [facility] 07-07-2022 10:05-0400 Systolic blood pressure 122 mm[Hg] Sofía Bogner PA-C Work Phone: [facility] 05-16-2022 08:47-0400 Body height 170.2 cm Maurice Hackett MD Work Phone: [facility] 05-16-2022 08:47-0400 Body temperature 96.8 [degF] Maurice Hackett MD Work Phone: [facility] 05-16-2022 08:47-0400 Body weight 53.52 kg Maurice Hackett MD Work Phone: [facility] 05-16-2022 08:47-0400 Diastolic blood pressure 70 mm[Hg] Maurice Hackett MD Work Phone: [facility] 05-16-2022 08:47-0400 Heart rate 62 /min Maurice Hackett MD Work Phone: [facility] 05-16-2022 08:47-0400 Respiratory rate 12 /min Maurice Hackett MD Work Phone: [facility] 05-16-2022 08:47-0400 SaO2% (BldA) [Mass fraction] 99 % Maurice Hackett MD Work Phone: [facility] 05-16-2022 08:47-0400 Systolic blood pressure 110 mm[Hg] Maurice Hackett MD Work Phone: [facility] 04-21-2022 15:33-0400 Body height 170.2 cm Jessy ROLDANC Work Phone: [facility] 04-21-2022 15:33-0400 Body weight 53.07 kg Jessy ROLDANC Work Phone: [facility] 02-07-2022 10:14-0400 Body temperature 97.59 [degF] Alice Gregory [address] 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VISOR [employer] Work Phone: [facility] 02-07-2022 10:14-0400 Body weight 54.7 kg Alice Gregory [address] 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VISOR [employer] Work Phone: [facility] 02-07-2022 10:14-0400 Diastolic blood pressure 70 mm[Hg] Alice Gregory [address] 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VISOR [employer] Work Phone: [facility] 02-07-2022 10:14-0400 Heart rate 60 /min Alice Gregory [address] 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VISOR [employer] Work Phone: [facility] 02-07-2022 10:14-0400 Respiratory rate 16 /min Alice Gregory [address] 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VISOR [employer] Work Phone: [facility] 02-07-2022 10:14-0400 SaO2% (BldA) [Mass fraction] 100 % Alice Gregory [address] 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VISOR [employer] Work Phone: [facility] 02-07-2022 10:14-0400 Systolic blood pressure 126 mm[Hg] Alice Gregory [address] 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[employer]OR [employer] Work Phone: [facility] 08-03-2017 12:08-0500 BMI (Body Mass Index) 18.27 kg/m2 Handy Russell STEEL MANAGER [facility] Work Phone: 08-03-2017 12:08-0500 BP Diastolic 80 mm[Hg] Handy Russell STEEL MANAGER [facility] Work Phone: 08-03-2017 12:08-0500 BP Systolic 128 mm[Hg] Handy Russell STEEL MANAGER [facility] Work Phone: 08-03-2017 12:08-0500 Height 171.45 cm Handy Russell STEEL MANAGER [facility] Work Phone: 08-03-2017 12:08-0500 Pulse (Heart Rate) 66 /min Handy Russell STEEL MANAGER [facility] Work Phone: 08-03-2017 12:08-0500 Weight 53.71 kg Handy Russell STEEL MANAGER [facility] Work Phone: 06-03-2017 14:42-0400 Body Temperature 97.7 [degF] Handy Russell STEEL MANAGER [facility] Work Phone: 06-03-2017 14:42-0400 Height 171.45 cm Handy Russell STEEL MANAGER [facility] Work Phone: 06-03-2017 14:42-0400 Respiratory Rate 20 /min Handy Russell STEEL MANAGER [facility] Work Phone: 06-03-2017 14:42-0400 Weight 52.07 kg Handy Russell STEEL MANAGER [facility] Work Phone: 11-05-2016 14:41-0500 BSA (Body Surface Area) 1.63 m2 Handy Russell STEEL MANAGER [facility] Work Phone: 10-16-2015 14:27-0500 BP Diastolic 44 mm[Hg] Handy Russell STEEL MANAGER [facility] Work Phone: 10-16-2015 14:27-0500 BP Systolic 88 mm[Hg] Handy Russell STEEL MANAGER [facility] Work Phone: 10-16-2015 14:27-0500 Pulse (Heart Rate) 64 /min Handy Russell STEEL MANAGER [facility] Work Phone: Encounters Encounter Date Encounter Type Care Provider Facility Start: 11-17-2023 End: 11-17-2023 [facility] Facility:[facility] Start: 11-17-2023 End: 11-17-2023 ambulatory [facility] Facility:[facility] Start: 11-17-2023 End: 11-17-2023 Subsequent hospital visit by physician [facility] W[facility] (I-Stat) Work Phone: Cat Scan Procedures Date Procedure Procedure Detail Performing Clinician Start: 11-17-2023 Ct head/brain w/o co ntrast material Halle Sampson APRN.CNP Work Phone: Start: 08-17-2023 Arthrocentesis aspir &/inj major jt/bursa w/o us Maggi Aldana PA-C Work Phone: Start: 08-10-2023 Arthrocentesis aspir &/inj major jt/bursa w/o us Jatinder Warren MD Work Phone: Start: 07-09-2023 INFLUENZA VACCINE, P RSV FREE, AGE 65+ YR, HIGH DOSE, QUADRIVALENT (FLUZONE HIGH-DOSE) Manisha Nichole APRN.CNP Work Phone: Start: 09-05-2022 2019 CORONAVIRUS Rno García MD Work Phone: Start: 08-19-2022 Urnls [...] Radiologic exam knee complete 4/more views Jessy FRANKLIN-C Work Phone: Start: 08-03-2017 End: 08-04-2017 *BMP Handy Russell STEEL MANAGER Work Phone: Start: 08-03-2017 End: 08-03-2017 Ecg routine ecg w/least 12 lds w/i&r Handy Russell STEEL MANAGER Work Phone: Start: 08-03-2017 End: 08-04-2017 Magnesium [Mass/volume] in Serum or Plasma Handy Russell STEEL MANAGER Work Phone: Start: 06-09-2017 End: 06-11-2017 Bx/exc lymph node open superficial Carlos Singh MD Work Phone: Start: 11-05-2016 End: 11-05-2016 ARPAN Cooley MD Start: 11-05-2016 End: 11-05-2016 Follow [...] Brian Cooley MD Start: 08-30-2015 End: 08-30-2015 CLAY [employer]ER Brian Cooley MD Start: 08-30-2015 End: 08-30-2015 Follow [...] PA-C Work Phone: Start: 05-16-2015 End: 05-16-2015 [employer] Tanesha Britt PA-C Work Phone: Start: 05-16-2015 [...] PA-C Work Phone: Start: 01-16-2015 End: 01-25-2015 *BMP Brian Cooley MD Start: 01-16-2015 End: 01-16-2015 ARPAN [...] Brian Cooley MD Start: 01-12-2014 End: 06-28-2015 *CRAIG Cooley MD Start: 01-12-2014 End: 01-12-2014 *Hepatic Function Panel Ele Pierre Start: 01-12-2014 End: 01-12-2014 ARPAN Cooley MD Start: 01-12-2014 End: 01-12-2014 Ecg routine ecg w/least 12 lds w/i&r Brian Cooley MD Start: 01-12-2014 End: 01-12-2014 Follow Up Appt 6 months Ele Pierre Start: 01-12-2014 End: 06-28-2015 Magnesium [Mass/volume] in [...] PA-C Work Phone: Start: 09-28-2013 End: 09-28-2013 CLAY [employer]ER Brian Cooley MD Start: 09-28-2013 End: 07-25-2014 Ecg routine ecg w/least 12 lds w/i&r Brian Cooley MD Start: 09-28-2013 End: 07-25-2014 Echocardiography Brian Cooley MD Start: 09-28-2013 End: 09-28-2013 Follow Up Appt 2 months Ele Pierer Start: 08-08-2013 End: 08-09-2013 *BMP Brian Cooley MD Start: 08-08-2013 End: 08-09-2013 *CBC with Differential Brian Cooley MD Start: 08-08-2013 End: 07-25-2014 CLAY MINER Brian Cooley MD Start: 08-08-2013 End: 08-08-2013 [...] PA-C Work Phone: Start: 11-17-2012 End: 11-17-2012 CLAY MINER Brian Cooley MD Start: 11-17-2012 End: 11-17-2012 [...] Detail Author Start: 06-30-[address] [facility] Start: 09-24-2028 Urine microalbumin profile DTA P,TDAP,TD (2 - Td or Tdap) [facility] Start: 09-01-2026 Diabetes Screening Diabetes Screenin g [facility] Start: 07-06-2026 Diabetes Screening Diabetes Screenin g [facility] Start: 04-20-2026 DIABETES SCREEN DIABETES SCREEN [facility] Start: 08-25-2025 DIABETES SCREEN DIABETES SCREEN [facility] Start: 06-28-2025 DIABETES SCREEN DIABETES SCREEN [facility] Start: 07-09-2024 RSV Vaccine (1 - 1-d ose 60+ series) RSV Vaccine (1 - 1-dose 60+ series) [facility] Immunizations Immunization Date Immunization Notes Care Provider Niko ruby 07-09-2023 influenza (HD-IIV4) vaccine, age 65+ yr, high dose, quadrivalent, PF (FLUZONE HIGH-DOSE) Manisha Nichole APRN.NIKO Work Phone: [facility] 06-30-2022 tetanus and diphther ia toxoids, adsorbed, preservative free, for adult use (5 Lf of tetanus toxoid and 2 Lf of diphtheria toxoid) Sofía Bogner PA-C Work Phone: [facility] 05-21-2022 influenza (aIIV4) vaccine, age 65+ yr, quadrivalent, PF (FLUAD QUADRIVALENT) Sofía Bogner PA-C Work Phone: [facility] 05-21-2022 influenza, high dose seasonal, preservative-free Maggi Vetovitz PA-C Work Phone: [facility] 12-30-2021 COVID-19 original vaccine, age 12+ yr, monovalent (PFIZER-BIONTECH - AGUILAR TOP) Sofía Bogner PA-C Work Phone: [facility] 12-30-2021 COVID-19 vaccine, ag e 12+ yr (PFIZER-BIONTECH - PURPLE TOP) Manisha Nichole APRN.SUPERVISOR [employer] Work Phone: [facility] 11-25-2021 hepatitis A vaccine, adult dosage Maurice Hackett MD Work Phone: [facility] 05-29-2021 influenza (aIIV4) vaccine, age 65+ yr, quadrivalent, PF (FLUAD QUADRIVALENT) Maurice Hackett MD Work Phone: [facility] 05-15-2021 influenza virus vacc ine, unspecified formulation Maurice Hackett MD Work Phone: [facility] 05-26-2020 influenza, injectabl e, quadrivalent, preservative free Sofía Bogner PA-C Work Phone: [facility] 05-26-2020 zoster vaccine recombinant Sofía Bogner PA-C Work Phone: [facility] 05-23-2020 influenza, seasonal, injectable, preservative free Sofía Bogner PA-C Work Phone: [facility] 03-05-2020 hepatitis A vaccine, adult dosage Sofía Bogner PA-C Work Phone: [facility] 03-05-2020 zoster vaccine recombinant Sofía Bogner PA-C Work Phone: [facility] 07-26-2019 influenza, high dose seasonal, preservative-free Maurice Hackett MD Work Phone: [facility] Work Phone: 11-16-2018 influenza, seasonal, injectable, preservative free Sofía Bogner PA-C Work Phone: [facility] 11-16-2018 pneumococcal polysaccharide vaccine, 23 valent Sofía Bogner PA-C Work Phone: [facility] 12-10-2017 influenza, seasonal, injectable, preservative free Sofía Bogner PA-C Work Phone: [facility] 12-10-2017 pneumococcal polysaccharide vaccine, 23 valent Sofía Bogner PA-C Work Phone: [facility] 12-20-2015 pneumococcal conjuga te vaccine, 13 valent Maurice Hackett MD Work Phone: [facility] Work Phone: 07-12-2012 influenza virus vacc ine, unspecified formulation Maurice Hackett MD Work Phone: [facility] Work Phone: 01-08-2010 tetanus and diphther ia toxoids, adsorbed, preservative free, for adult use (2 Lf of tetanus toxoid and 2 Lf of diphtheria toxoid) Maurice Hackett MD Work Phone: [facility] Work Phone: 01-08-2010 zoster vaccine, live Maurice Hackett MD Work Phone: [facility] Work Phone: 06-12-2009 influenza virus vacc ine, unspecified formulation Maurice Hackett MD Work Phone: [facility] Work Phone: 05-04-2007 pneumococcal polysaccharide vaccine, 23 valent Maurice Hackett MD Work Phone: [facility] Work Phone: Payers Date Payer Category Payer Private Health Insurance [employer] [facility] [id number] 2021-Present [phone] [address] [place] [address] Indemnity [id number] 2021 Private Health Insurance [facility] SUPPLEMENT [id number] 2021-Present [phone] [address] [place] [address] Indemnity [id number] 2021 Private Health Insurance [id number] 2007 Medicare MEDICARE MEDICAR E A AND B [id number] 2007-Present [phone] [address] [address] [place] [address] Medicare [id number] 2007 Medicare MEDICARE MEDICAR E A AND B [id number] 2007-Present [phone] [place] [address] Medicare [id number] 2007 Medicare [id number] Medicare [id number] Social History Date Type Detail Facility Start: 04-21-2022 Tobacco smoking status NHIS Never smoked tobacco [facility] Start: 10-07-2021 End: 11-02-2023 Alcohol intake Current drinker of alcohol (finding) [facility] Start: 10-07-2021 End: 01-14-[address] [facility] Start: 01-27-2020 End: 08-22-2022 History SDOH Alcohol Frequency 3 [facility] Start: 11-17-2019 End: 08-22-2022 History SDOH Alcohol Std Drinks 1 [facility] Start: 10-28-2012 History SDOH Alcohol Comment [address] [facility] Start: 11-17-2019 End: 12-09-2022 History SDOH Social Connections Phone 5 [facility] Start: 11-17-2019 End: 08-22-2022 History SDOH Transport Med 2 [facility] Start: 11-16-[address] [facility] Start: 1940 Sex Assigned At Female [facility] Work Phone: Start: 10-14-2021 End: 08-04-2022 Exposure to SARS-CoV-2 (event) Not sure [facility] Start: 04-21-2022 Tobacco use and exposure Smokeless tobacco non-user [facility] Start: 05-15-2022 End: 08-22-2022 History SDOH Social Connections Get Together 4 [facility] Start: 08-22-2022 History SDOH Alcohol Std Drinks 0 [facility] Start: 08-22-2022 End: 01-14-2023 Social connection and isolation panel [facility] Do you belong to any clubs or organizations such as sikh groups, unions, [email or web address] or athletic groups, or school groups? Yes [facility] Are you now , , , , never or living with a partner? [facility] How often to you hav e a drink containing alcohol? Monthly or less [facility] How many standard dr inks containing alcohol do you have on a typical day? Patient does not drink [facility] How often do you hav e 6 or more drinks on 1 occasion? Never [facility] Do you feel stress - tense, restless, nervous, or anxious, or unable to sleep at night because your mind is troubled all the time - these days [OSQ] Only a little [facility] (I/We) worried wheth er (my/our) food would run out before (I/we) got money to buy more. Never true [facility] In the past 12 month s, was there a time when you were not able to pay the mortgage or rent on time? No [facility] Start: 02-01-2020 Gender identity Identifies as female gender (finding) [facility] Work Phone: Start: 02-01-2020 Sexual orientation Heterosexual (finding) [facility] Work Phone: Clinical Notes 12-20-2015 to 11-17-2023 Reef BeeKelly swartz RT(R) - 11/17/2023 2:20 PM ESTHalle Sampson APRN.NIKO - 11/02/2023 3:21 PM ESTTelephone Encounter - Grace Burgos RN - 11/02/2023 2:45 PM ESTPatient Instructions Note Date & Type Note Facility 11-17-2023 Note HNO ID: [id number] Author: KELLY DILLON RT(R) Service: ? Author Type: Digital Publishing Specialist Type: Progress Notes Filed: 11/17/2023 15:01 Note Text: Radiology Service Progress Note PATIENT NAME: Julianna Tucker DATE OF SERVICE: November 17, 2023 TIME: 3:01 PM PATIENT IDENTITY VERIFICATION COMPLETED USING TWO (2) IDENTIFIERS: Name and Date of confirmed by patient verbally. FALL SCREENING: Has the patient had 2 falls in the last year or 1 fall with injury or currently using an Ambulatory Assistive Device (Walker, Cane, Wheelchair, Crutches, etc.)? No PATIENT GENDER DATA: Female. status: : No status: NO. PATIENT RELEVANT IMPLANT DATA REVIEWED: Yes PATIENT PRESENTS WITH AN IMPLANTABLE OR ATTACHED FIELD SCOUT: No RADIOLOGY DEPARTMENT: CT; Exam(s) Completed: Brain PERIPHERAL IV DATA: Not applicable SIGNED BY: RT Sara(Tessie) November 17, 2023 3:01 PM [facility] 11-17-2023 History of Present illness Narrative Radiology Service Progress Note PATIENT NAME: Julianna Tucker DATE OF SERVICE: November 17, 2023 TIME: 3:01 PM PATIENT IDENTITY VERIFICATION COMPLETED USING TWO (2) IDENTIFIERS: Name and Date of confirmed by patient verbally. FALL SCREENING: Has the patient had 2 falls in the last year or 1 fall with injury or currently using an Ambulatory Assistive Device (Walker, Cane, Wheelchair, Crutches, etc.)? No PATIENT GENDER DATA: Female. status: : No status: NO. PATIENT RELEVANT IMPLANT DATA REVIEWED: Yes PATIENT PRESENTS WITH AN IMPLANTABLE OR ATTACHED FIELD SCOUT: No RADIOLOGY DEPARTMENT: CT; Exam(s) Completed: Brain PERIPHERAL IV DATA: Not applicable SIGNED BY: RT Sara(R) November 17, 2023 3:01 PM documented in this encounter [facility] 11-02-2023 Note HNO ID: [id number] Author: HALLE SAMPSON APRN.[employer] Service: ? Author Type: Nurse Practitioner Type: Progress Notes Filed: 11/02/2023 15:54 Note Text: SUBJECTIVE Julianna Tucker is a 83 year old female here today for a check up on her medical problems. Chief Complaint Patient presents with: Belly button infection: Smelly and itchy drainage Neurologic Problem: Difficulty speaking at times, thought process HPI Julianna Tucker is a 83 year old female. She is an established patient of Maurice Hackett MD. Here today for concerns of an infection to her belly button and also notices some issues with her speaking and thought process at times. She did recently see Manisha Nichole APRN and had discussed dizziness. Julianna does see Dr. Blanca with neurology with [facility]. She is wondering if she is having mini-strokes. Events occur several minutes. She was trying to explain something and had the wrong words coming out. This happened a second time, both times in the evenings and when tired. No issues with a weakness to her arms or legs, no recent balance issues or trouble with eating, drinking or one sided weakness or drooping of theface. No issues with vision associated with this. She did also recently have a 10 minute ocular migraine. Planning to follow up with neurology also. Told that she has previously likely had a stroke in the past. A fib is well controlled. On an anticoagulant for this. Belly button suspected to be yeast, getting a clear drainage. Her medications were reviewed today and her list is now up to date. Medications Current Outpatient Medications Medication Sig famotidine (PEPCID) 20 mg tablet take 1 tablet by mouth at bedtime if needed BENEFIBER, GUAR GUM, ORAL Take 2 teaspoonsful [...] Take 1,000 Units by mouth once daily. nystatin (MYCOSTATIN) powder Apply 1 application to affected area three times a day. No current facility-administered medications for this visit. [...] (A priority) Comment: No anticoagulation. (2013: CHADS2=0. [id number]=9) On eliquis currently. She has no trouble [...] Prolapse (C priority) Protein-Calorie Malnutrition, Unspecified Severity ([facility]) - 01/14/2023 Mild Cognitive Disorder - 11/27/2020 Chronic Pain of Right Knee - 10/06/2018 Siadh (Syndrome of Inappropriate Adh Production) ([facility]) - 03/09/2018 Comment: Dx: 2012 she is on salt tablets and she has to limit her water content to 64 units a day. 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 She is done with the actonel for a life time. Neck Pain - 08/16/2015 Right-Sided Low Back Pain With Right-Sided Sciatica - 07/24/2015 Pain in (more content not included)... [facility] 11-02-2023 History of Present illness Narrative SUBJECTIVE Julianna Tucker is a 83 year old female here today for a check up on her medical problems. Chief Complaint Patient presents with: Belly button infection: Smelly and itchy drainage Neurologic Problem: Difficulty speaking at times, thought process HPI Julianna Tucker is a 83 year old female. She is an established patient of Maurice Hackett MD. Here today for concerns of an infection to her belly button and also notices some issues with her speaking and thought process at times. She did recently see Manisha Nichole APRN and had discussed dizziness. Julianna does see Dr. Blanca with neurology with [facility]. She is wondering if she is having mini-strokes. Events occur several minutes. She was trying to explain something and had the wrong words coming out. This happened a second time, both times in the evenings and when tired. No issues with a weakness to her arms or legs, no recent balance issues or trouble with eating, drinking or one sided weakness or drooping of the face. No issues with vision associated with this. She did also recently have a 10 minute ocular migraine. Planning to follow up with neurology also. Told that she has previously likely had a stroke in the past. A fib is well controlled. On an anticoagulant for this. Belly button suspected to be yeast, getting a clear drainage. Her medications were reviewed today and her list is now up to date. Medications Current Outpatient Medications Medication Sig famotidine (PEPCID) 20 mg tablet take 1 tablet by mouth at bedtime if needed BENEFIBER, GUAR GUM, ORAL Take 2 teaspoonsful [...] Take 1,000 Units by mouth once daily. nystatin (MYCOSTATIN) powder Apply 1 application to affected area three times a day. No current facility-administered medications for this visit. ALLERGIES Allergen Reactions Adhesive Tape (Selena* Rash Cantaloupe Erythromycin GI Upset Gemtesa [Vibegron] Diarrhea Grass Pollen Mold Penicillins Rash, Swelling Pollen Prevacid [Lansopraz* Diarrhea All PPIs tried have given her diarrhea. Sulfa (Sulfonamide * Pt uncertain if Sulfa allergy is accurate or not. ACTIVE PROBLEM LIST Paroxysmal Atrial Fibrillation ([facility]) (A priority) Comment: No anticoagulation. (2013: CHADS2=0. [id number]=1) On eliquis currently. She has no trouble [...] Prolapse (C priority) Protein-Calorie Malnutrition, Unspecified Severity ([facility]) - 01/14/2023 Mild Cognitive Disorder - 11/27/2020 Chronic Pain of Right Knee - 10/06/2018 Siadh (Syndrome of Inappropriate Adh Production) ([facility]) - 03/09/2018 Comment: Dx: 2013 she is on salt tablets and she has to limit her water content to 64 units a day. 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 She is done with the actonel for a life time. Neck Pain - 08/16/2015 Right-Sided Low Back Pain With Right-Sided Sciatica - 07/24/2015 Pain in Joint, Lower Leg - 04/27/2014 Dizziness and Giddiness - 03/08/2013 Closed fracture of lumbar vertebra ([facility]) - 10/18/2012 Comment: Strong family history of osteoporosis. She is done with the actonel for a life time. Social History Tobacco Use Smoking status: Never Smokeless tobacco: Never Vaping Use Vaping Use: Never used Substance Use Topics Alcohol use: Yes Alcohol/week: 1.0 standard drink of alcohol Types: 1 Glasses of Wine (5oz) per week Comment: 1 glass per week Drug use: No Review of Systems Respiratory: Negative. Cardiovascular: Negative. Neurological: Positive for speech difficulty. Negative for dizziness, tremors, seizures, syncope, facial asymmetry, weakness, light-headedness, numbness and headaches. OBJECTIVE BP 122/64 Pulse 64 Resp 16 Wt 118 lb 4.8 oz (53.7kg) SpO2 99% Physical Exam Vitals and nursing note reviewed. Constitutional: General: She is awake. She is not in acute distress. Appearance: Normal appearance. She is well-developed and well-groomed. She is not ill-appearing, toxic-appearing or diaphoretic. HENT: Head: Normocephalic. Right Ear: External ear normal. Left Ear: External ear normal. Nose: Nose normal. Eyes: General: Vision grossly intact. Extraocular Movements: Extraocular movements intact. Conjunctiva/sclera: Conjunctivae normal. Pupils: Pupils are equal, round, and reactive to light. Neck: Vascular: No JVD. Trachea: Trachea normal. Cardiovascular: Rate and Rhythm: Normal rate and regular rhythm. Pulses: Normal pulses. Heart sounds: Normal heart sounds. No murmur heard. Pulmonary: Effort: Pulmonary effort is normal. No accessory muscle usage, prolonged expiration or respiratory distress. Breath sounds: Normal breath sounds. Musculoskeletal: Cervical back: Neck supple. Skin: General: Skin is warm and dry. Capillary Refill: Capillary refill takes less than 2 seconds. Neurological: General: No focal deficit present. Mental Status: She is alert and oriented to person, place, and time. Mental status is at baseline. Cranial Nerves: Cranial nerves 2-12 are intact. Sensory: Sensation is intact. Motor: Motor function is intact. Coordination: Coordination is intact. Gait: Gait is intact. Psychiatric: Attention and Perception: Attention and perception normal. Mood and Affect: Mood and affect normal. Speech: Speech normal. Behavior: Behavior normal. Behavior is cooperative. Thought Content: Thought content normal. Cognition and Memory: Cognition and memory normal. Judgment: Judgment normal. ASSESSMENT/PLAN: 1. TIA (transient ischemic attack) - ICD9: 435.9, ICD10: G45.9 (primary diagnosis) On exam today she has no red flag symptoms. Her symptoms are consistent with a TIA, advised her to follow up with neuro but we can set up for a head CT and carotid ultrasound, may need to consider brain MRI depending on results. Discussed signs and symptoms to monitor for and when to seek medical eval. - CT BRAIN WO IVCON - US CAROTID ARTERIES [facility] 2. Aphasia - ICD9: 784.3, ICD10: R47.01 See #1 - CT BRAIN WO IVCON - US CAROTID [facility]ERIES [facility] 3. Ocular migraine - ICD9: 346.80, ICD10: G43.109 See #1 - CT BRAIN WO IVCON - US CAROTID [facility]ERIES [facility] 4. Yeast dermatitis - ICD9: 112.3, ICD10: B37.2 - NYSTATIN 100,000 UNIT/GRAM TOPICAL POWDER Portions of this note have been entered by ancillary staff. I have reviewed and when necessary edited, so that they are an adequate record of my encounter with this patient Please note that parts of this document were created using voice recognition software and therefore may contain grammatical errors. Patient verbalizes understanding of instructions from today's visit and in agreement with treatment plan. Questions answered. Agrees to call the office if questions, concerns of issues with acute symptoms not improving or if they worsen. See diagnoses and orders for additional plan(s). Allergies and medications were reviewed, list was updated, and refills given if needed. Past medical, surgical, social, and family history reviewed and updated as appropriate. Encouraged proper diet & exercise as well as compliance with taking medications. Age-appropriate health preventative measures were discussed. Return if symptoms worsen or fail to improve, for Keep next scheduled appointment.. Halle Sampson APRN-NIKO documented in this encounter [facility] 11-02-2023 Miscellaneous Notes Pt calling in with 2 problems. First she states she thinks she has an infected belly button. Has been trying to treat it with hydrogen peroxide. Second problem is that she states twice in the past week and a half, she had episodes where she couldn't talk . She was desperately looking for words but when she did speak other words came out. These two episodes last about 3 mins or so. States it was very scary for her. She couldn't say what she was thinking. Pt instructed if anything like this happens, she needs to call 911 right away. Pt given an appt for this afternoon with Halle Sampson for 40 mins. Spoke with Mala. documented in this encounter [facility] 10-30-2023 Note HNO ID: [id number] Author: CARLOS SINGH MD Service: ? Author Type: Physician Type: Progress Notes Filed: 10/30/2023 14:18 Note Text: HISTORY AND PHYSICAL Julianna Tucker 1940 REFERRING PHYSICIAN: Tomeka Ascencio, [employer] [address] [facility] [address] [facility] [address] CHIEF COMPLAINT: No chief complaint on file. HPI: The patient is a 83 year old female with a complaint of Mastodynia (primary encounter diagnosis) Costochondritis. Patient is a 83-year-old postmenopausal female with left breast cancer detected on routine annual screening. She has a positive family history of breast cancer involving her sister, has been compliant with annual screening, did not feel a lump herself. Screening mammogram in February 2017 showed a suspicious area in the left breast confirmed on biopsy to be an invasive ductal cancer. On April 17, 2017 she underwent left mastectomy with sentinel lymph node biopsy by Dr. Singh. Pathology revealed a 2.5 cm maximum diameter invasive ductal cancer single focus overall grade 1 ER positive NJ positive HER-2 not amplified by fish. Resection margin was negative at 10 mm and no metastatic cancer was detected in 3 dissected sentinel lymph nodes. She has made a non-complicated recovery from her surgery. Most recent mammogram showed only a single calcification in the right breast. She has been complaining of some breast pain in the medial aspect of her right breast. The patient is being seen by me today at the request of Dr. Maurice Hackett MD for my opinion and advice regarding Mastodynia (primary encounter diagnosis) Costochondritis. 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 denosumab (PROLIA) 60 mg/mL Inject 60 mg subcutaneously one time only. Gets injection every 6 months anastrozole (ARIMIDEX) 1 mg tablet Take 1 mg by mouth once daily. APIXABAN (ELIQUIS ORAL) Take by mouth twice daily. acetaminophen (TYLENOL) 325 mg tablet Take 650 mg by mouth every 6 hours as needed. calcium carbonate 600 mg-cholecalciferol 200 units 600 mg-5 mcg (200 unit) tab Take 1 tablet by mouth once daily. famotidine (PEPCID) 20 mg tablet take 1 tablet by mouth at bedtime if needed nitrofurantoin monohydrate and macrocrystal (MACROBID) 100 mg capsule Take 1 capsule by mouth two times a day. meclizine (ANTIVERT) 25 mg tab Take 1 tablet by mouth every 6 hours as needed (dizziness). fludrocortisone (FLORINEF) 0.1 mg tablet Taking 3 times a week (Patient laney (more content not included)... [facility] 10-30-2023 History of Present illness Narrative HISTORY AND PHYSICAL Julianna Alvarado Monique 1940 REFERRING PHYSICIAN: Tomeka Ascencio, [employer] [address] [facility] [address] [place] [id number] CHIEF COMPLAINT: No chief complaint on file. HPI: The patient is a 83 year old female with a complaint of Mastodynia (primary encounter diagnosis) Costochondritis. Patient is a 83-year-old postmenopausal female with left breast cancer detected on routine annual screening. She has a positive family history of breast cancer involving her sister, has been compliant with annual screening, did not feel a lump herself. Screening mammogram in February 2017 showed a suspicious area in the left breast confirmed on biopsy to be an invasive ductal cancer. On April 17, 2017 she underwent left mastectomy with sentinel lymph node biopsy by Dr. Singh. Pathology revealed a 2.5 cm maximum diameter invasive ductal cancer single focus overall grade 1 ER positive NJ positive HER-2 not amplified by fish. Resection margin was negative at 10 mm and no metastatic cancer was detected in 3 dissected sentinel lymph nodes. She has made a non-complicated recovery from her surgery. Most recent mammogram showed only a single calcification in the right breast. She has been complaining of some breast pain in the medial aspect of her right breast. The patient is being seen by me today at the request of Dr. Maurice Hackett MD for my opinion and advice regarding Mastodynia (primary encounter diagnosis) Costochondritis. PAST MEDICAL HISTORY Diagnosis Date Abnormality of [...] breast in female, estrogen receptor positive (HCC) (HCC) 09/08/2017 Mitral valve prolapse Neoplasm of [...] W/COLLJ SPEC BR/WA IF PFRMD 07/23/2004 Sigmoidoscopy Current Outpatient Medications Medication Sig BENEFIBER, GUAR GUM, ORAL Take 2 teaspoonsful by mouth two times a day as needed. denosumab (PROLIA) 60 mg/mL Inject 60 mg subcutaneously one time only. Gets injection every 6 months anastrozole (ARIMIDEX) 1 mg tablet Take 1 mg by mouth once daily. APIXABAN (ELIQUIS ORAL) Take by mouth twice daily. acetaminophen (TYLENOL) 325 mg tablet Take 650 mg by mouth every 6 hours as needed. calcium carbonate 600 mg-cholecalciferol 200 units 600 mg-5 mcg (200 unit) tab Take 1 tablet by mouth once daily. famotidine (PEPCID) 20 mg tablet take 1 tablet by mouth at bedtime if needed nitrofurantoin monohydrate and macrocrystal (MACROBID) 100 mg capsule Take 1 capsule by mouth two times a day. meclizine (ANTIVERT) 25 mg tab Take 1 tablet by mouth every 6 hours as needed (dizziness). fludrocortisone (FLORINEF) 0.1 mg tablet Taking 3 times a week (Patient taking differently: Taking 1/2 a tablet 3 times a week) Magnesium Glycinate 120mg 3 at night Stress, [...] daily before breakfast. 1/2 hr before meal. dofetilide (TIKOSYN) 250 mcg capsule Take 250 mcg by mouth twice daily. ergocalciferol(VITAMIN D 400 UNIT CAP) Take 1,000 Units by mouth once daily. No current facility-administered medications for this visit. ALLERGIES: Adhesive Tape (Rosins), Cantaloupe, Erythromycin, Gemtesa [Vibegron], Grass Pollen, Mold, Penicillins, Pollen, Prevacid [Lansoprazole], and Sulfa (Sulfonamide Antibiotics) PERSONAL HISTORY: Social History Tobacco Use Smoking status: Never Smokeless tobacco: Never Vaping Use Vaping Use: Never used Substance Use Topics Alcohol use: Yes Alcohol/week: 1.0 standard drink of alcohol Types: 1 Glasses of Wine (5oz) per week Comment: 1 glass per week Drug use: No FAMILY HISTORY: FAMILY HISTORY Problem Relation Age of Onset [...] Sister 66 Lung Breast Cancer Sister 68 REVIEW OF SYMPTOMS: The review of systems data was entered by the nurse and reviewed by me Nursing Notes: Taryn Altamirano RN 10/30/2023 2:15 PM Signed REVIEW OF SYSTEMS: General: The patient NOTES fatigue, denies weight loss, denies weight gain, denies feeling hot, and NOTES feelings of cold. Eyes: The patient denies glaucoma, NOTES eye injury/surgery, wears glasses or contacts. Ear/Nose/Throat: The patient notes allergies, denies hayfever, denies ear infections, and denies bloody noses. Cardiovascular: The patient denies chest pain, denies heart disease, denies high blood pressure,denies cardiac stent, denies prior heart attack, NOTES irregular heart beat, denies high cholesterol, denies poor circulation, denies heart failure, other cardiac issues, denies claudication, NOTES cold feet, denies peripheral arterial stent. Respiratory: The patient denies tuberculosis, NOTES pneumonia, denies frequent cough, denies pulmonary embolism, denies shortness of breath, and denies coughing up blood. Gastrointestinal: The patient denies difficulty swallowing, NOTES acid reflux, denies ulcers, denies vomiting, denies jaundice/hepatitis, denies gallbladder problems, denies black or tarry stools, denies hemorrhoids, denies bleeding from rectum, denies diverticulitis, NOTES constipation, denies diarrhea, denies loss of stool control, and denies hernias. Kidney/Bladder: The patient denies kidney stones, denies urine infections, and denies bloody urine. Skin: The patient denies a history of skin cancer, denies bleeding/changing moles, and denies a history of skin rash. Neurologic: The patient denies a history of epilepsy/convulsions, denies headaches, denies head/spinal injuries, and denies stroke/TIA. Psychiatric: The patient denies psychiatric medications, denies depression, and denies voices, denies substance abuse. Endocrine: The patient denies thyroid disorders, denies diabetes, and denies hormonal problems. Hematologic: The patient denies a history of bruising, denies bleeding, and denies anemia, denies blood clots. Infections: The patient NOTES a history of measles and mumps, denies rheumatic fever, and denies sexually transmitted diseases. Musculoskeletal: The patient NOTES back pain/injury, denies back problems, denies sciatica, NOTES knee/foot trouble, denies arthritis, or denies gout. When was patient's last Mammogram screening? Sep 2023 Last Colonoscopy: 2018 Taryn Altamirano RN PHYSICAL EXAMINATION: General: The patient is 83 year old female, well nourished, well hydrated in no acute distress. The patient is oriented to time, place, and person. VITALS: There were no vitals taken for this visit. HEENT: Normal cephalic, ataumatic, pupils are equally round, sclera are anicteric, mucous membranes are moist, oropharynx is clear. Neck has no masses, asymmetry or lymphadenopathy. Thyroid is unremarkable. Respiratory: Clear to auscultation and percussion. Normal respiratory excursion and pattern. Cardiac: Examination is regular rate and rhythm. Abdominal exam: Soft, nontender, with no palpable masses. No hepatosplenomegaly. No palpable hernias. Rectal exam: exam deferred Extremities: no clubbing, cyanosis or edema. No adenopathy. Other: Pain in the right breast is actually in the margin of the ribs and the sternum along the costal margin there is reproducible with palpation. There is no breast abnormality on physical exam. Axillary exam bilaterally is negative. Scar on the left side appears stable no signs of palpable abnormalities are identified. LABORATORY VALUES: As Noted RADIOLOGIC STUDIES: As Noted Assessment IMPRESSION: Mastodynia (primary encounter diagnosis) Costochondritis PLAN: At this point I do not think any surgical interventions are needed. We discussed possibly using nonsteroidal anti-inflammatories but she does not take those. Calcium deposit within the breast is entirely benign and stable and does not need tissue diagnosis at this time. Diagnoses: (N64.4) Mastodynia (primary encounter diagnosis) (M94.0) Costochondritis A letter was sent to Dr. Ascencio indicating the above finding for this patient. Return to Clinic: The patient is instructed to follow-up with me as needed. Carlos Singh III, MD documented in this encounter [facility] 10-30-2023 Nurse Note REVIEW OF SYSTEMS: General: The patient NOTES fatigue, denies weight loss, denies weight gain, denies feeling hot, and NOTES feelings of cold. Eyes: The patient denies glaucoma, NOTES eye injury/surgery, wears glasses or contacts. Ear/Nose/Throat: The patient notes allergies, denies hayfever, denies ear infections, and denies bloody noses. Cardiovascular: The patient denies chest pain, denies heart disease, denies high blood pressure,denies cardiac stent, denies prior heart attack, NOTES irregular heart beat, denies high cholesterol, denies poor circulation, denies heart failure, other cardiac issues, denies claudication, NOTES cold feet, denies peripheral arterial stent. Respiratory: The patient denies tuberculosis, NOTES pneumonia, denies frequent cough, denies pulmonary embolism, denies shortness of breath, and denies coughing up blood. Gastrointestinal: The patient denies difficulty swallowing, NOTES acid reflux, denies ulcers, denies vomiting, denies jaundice/hepatitis, denies gallbladder problems, denies black or tarry stools, denies hemorrhoids, denies bleeding from rectum, denies diverticulitis, NOTES constipation, denies diarrhea, denies loss of stool control, and denies hernias. Kidney/Bladder: The patient denies kidney stones, denies urine infections, and denies bloody urine. Skin: The patient denies a history of skin cancer, denies bleeding/changing moles, and denies a history of skin rash. Neurologic: The patient denies a history of epilepsy/convulsions, denies headaches, denies head/spinal injuries, and denies stroke/TIA. Psychiatric: The patient denies psychiatric medications, denies depression, and denies voices, denies substance abuse. Endocrine: The patient denies thyroid disorders, denies diabetes, and denies hormonal problems. Hematologic: The patient denies a history of bruising, denies bleeding, and denies anemia, denies blood clots. Infections: The patient NOTES a history of measles and mumps, denies rheumatic fever, and denies sexually transmitted diseases. Musculoskeletal: The patient NOTES back pain/injury, denies back problems, denies sciatica, NOTES knee/foot trouble, denies arthritis, or denies gout. When was patient's last Mammogram screening? Sep 2023 Last Colonoscopy: 2018 Taryn Altamirano RN documented in this encounter [facility] 10-23-2023 Miscellaneous Notes [place] with Dr. Lopez's office called for [facility] Pt will be having colonoscopy there. Identified pt with name and date of . FAX: [phone]. Done. documented in this encounter [facility] 10-20-2023 Miscellaneous Notes Patient calling and requesting Gastroenterology referral information be faxed to Dr. Lopez's office. Faxed as requested to [phone] Yamilet Dotson RN documented in this encounter [facility] 10-12-2023 Note HNO ID: [id number] Author: MANISHA NICHOLE APRN.SUPERVISOR [employer] Service: ? Author Type: Nurse Practitioner Type: Progress Notes Filed: 10/13/2023 12:17 Note Text: CC: Patient presents with: Recheck: 3 month follow up HPI Julianna Tucker is a 83 year old female who presents today for routine follow up. Chronic dizziness with nausea and vomiting. Sees neurology at [facility]. Dr. Blanca, Used to see Dr. Jane at [facility] and would like to schedule again. Patient easily gets dizzy with walking so in physical therapy to increase strength which she thinks is helping. History of IBS with chronic constipation. With the chronic nausea and vomiting, she struggles with maintaining healthy weight and nutrition. Has noticed over the past few months having increased indigestion with some epigastric abdominal pain especially in the evenings. Takes famotidine almost daily and uses her PPI daily as well. Some lower abdominal pain intermittently. Takes fiber supplement for her chronic constipation which works well. Denies any fever, chills, or change in urination. Paroxysmal A-fib: denies headache, chest pain, palpitations, and dyspnea. Patient denies any side effects of her medication(s) and is compliant with their regimen. Sees [facility] Last 3 Encounter BP Readings: Date: BP: 10/12/2023 132/80 09/01/2023 100/80 07/09/2023 130/80 History of dependant edema especially to RLE. Swelling worsens through the day but is resolved with elevating legs. Has SIADH and struggles with hyponatremia so tries not to limit salt too much. REVIEW OF SYSTEMS General: no fevers, no chills, no night sweats, no recurrent infections, no change in appetite, no change in energy, and no significant changes in weight Respiratory: no cough, no wheezing, no shortness of breath, no hemoptysis Cardiovascular: no chest pain, no chest pressure, and no palpitations PAST MEDICAL HISTORY Diagnosis Date Abnormality of [...] breast in female, estrogen receptor positive (HCC) (HCC) 09/08/2017 Mitral valve prolapse Neoplasm of [...] Sigmoidoscopy ALLERGIES Adhesive Tape (Rosins), Cantaloupe, Erythromycin, Gemtesa [Vibegron], Grass Pollen, Mold, Penicillins, Pollen, Prevacid [Lansoprazole], and Sulfa (Sulfonamide Antibiotics) MEDICATIONS famotidine (PEPCID) 20 mg tablet take 1 tablet by mouth at bedtime if needed nitrofurantoin monohydrate and macrocrystal (MACROBID) 100 mg capsule Take 1 capsule by mouth two times a day. BENEFIBER, GUAR GUM, ORAL Take 2 teaspoonsful by mouth two times a day as needed. meclizine (ANTIVERT) 25 mg tab Take 1 tablet by mouth every 6 hours as needed (dizziness). fludrocortisone (FLORINEF) 0.1 mg tablet Taking 3 times a week (Patient taking differently: Taking 1/2 a tablet (more content not included)... [facility] 09-01-2023 Note HNO ID: [id number] Author: Halle Sampson APRN.SUPERVISOR [employer] Service: ? Author Type: Nurse Practitioner Type: Progress Notes Filed: 09/01/2023 3:07 PM Note Text: SUBJECTIVE Julianna Tucker is a 83 year old female here today for a check up on her medical problems. Chief Complaint Patient presents with: ER F/U: [facility] on 08/29/2023 for vomiting /dehydration denies any further nausea/vomiting. Stills feels weak and unsteady on feet Has poor urinary output despite drinking greater than 64 oz of fluid HPI Julianna Tucker is a 83 year old female. She is here today for follow up from being seen in the ED at [facility]. Seen 08/29/2023 for vomiting and diagnosed with dehydration. ER notes reviewed in care everytwhere. Trying to keep hydrated. History of issues with her sodium levels and she knows if this gets off she gets issues with the nausea and vomiting. Tried reglan, zofran, and meclizine for the nausea. Given IV fluids in the ED. [place] better a little. Still some weakness. Sodium [...] (A priority) Comment: No anticoagulation. (2013: CHADS2=0. [id number]=2) On eliquis currently. She has no trouble [...] Prolapse (C priority) Protein-Calorie Malnutrition, Unspecified Severity ([facility]) - 01/14/2023 Mild Cognitive Disorder - 11/27/2020 Chronic Pain of Right Knee - 10/06/2018 Siadh (Syndrome of Inappropriate Adh Production) ([facility]) - 03/09/2018 Comment: Dx: 2012 she is on salt tablets and she has to limit her water content to 64 units a day. 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 She is done with the actonel for a life time. Neck Pain - 08/16/2015 Right-Sided Low Back Pain With Right-Sided Sciatica - 07/24/2015 Pain in Joint, Lower Leg - 04/27/2014 Dizziness and Giddiness - 03/08/2013 Closed fracture of lumbar vertebra ([facility]) - 10/18/2012 Comment: Strong family history of osteoporosis. She is done with the actonel for a life time. Social History Tobacco Use Smoking status: Never Smokeless tobacco: Never Vaping Use Vaping Use: Never used Substance Use Topics Alcohol use: Yes Alcohol/ (more content not included)... [facility] 08-24-2023 Note HNO ID: [id number] Author: JATINDER WARREN MD Service: ? Author Type: Physician Type: Progress Notes Filed: 09/19/2023 16:11 Note Text: Jatinder Warren MD Department of Orthopaedics Orthopaedics [address] [facility] [address] Dept: [phone] Dept August 24, 2023 CHIEF COMPLAINT: Established [...] knee joint Informed Consent Consent Obtained: Verbal Elizabeth Protocol A moment to CARE was completed. [...] R glenohumeral Informed Consent Consent Obtained: Verbal Elizabeth Protocol A moment to CARE was completed. [...] W/COLLJ SPEC WHEN PFRMD 07/23/2004 repeat due 2014 COLONOSCOPY FLX DX W/COLLJ SPEC WHEN PFRMD [...] - can caus (more content not included)... [facility] 08-17-2023 Note HNO ID: [id number] Author: Maggi Aldana PA-C Service: ? Author Type: Physician Ceo And Founder Type: Progress Notes Filed: 08/17/2023 11:28 AM Note Text: Large Joint Arthro/Inj: R knee joint Informed Consent Consent Obtained: Verbal Elizabeth Protocol A moment to CARE was completed. [...] equipment, possible retained foreign bodies accounted for. [facility] 08-17-2023 Note HNO ID: [id number] Author: Mari Conti Ma Service: ? Author [...] injection # 2 right knee LOT # [id number] EXP 08/09/2024 Taking Tylenol when needed for the pain. Mari Conti Ma [facility] 08-17-2023 History of Present illness Narrative Associated Order(s): Large Joint Arthro/Inj: R knee joint Post-Procedure Diagnose(s): Primary osteoarthritis of right knee; Chronic pain of right knee Large Joint Arthro/Inj: R knee joint Informed Consent Consent Obtained: Verbal Elizabeth Protocol A moment to CARE was completed. [...] injection # 2 right knee LOT # [id number] EXP 08/09/2024 Taking Tylenol when needed for the pain. Mari Conti Ma documented in this encounter [facility] 08-10-2023 Note HNO ID: [id number] Author: Jennifer Hardin RN Service: ? Author Type: Registered Nurse Type: Progress Notes Filed: 08/10/2023 12:25 PM Note Text: Euflexxa Injection Right knee LOT # [id number] EXP 2024-06-22 Jennifer Hardin RN [facility] 08-10-2023 Note HNO ID: [id number] Author: Jatinder Warren MD Service: ? Author Type: Physician Type: Progress Notes Filed: 08/10/2023 12:25 PM Note Text: Jatinder Warren MD Department of Orthopaedics Orthopaedics [address] [place] [address] Dept: [phone] Dept August 10, 2023 CHIEF COMPLAINT: Follow [...] knee joint Informed Consent Consent Obtained: Verbal Elizabeth Protocol A moment to CARE was completed. [...] daily. No current (more content not included)... [facility] 08-10-2023 Note HNO ID: [id number] Author: Analia Hernandez RT(R) Service: ? Author Type: Digital Publishing Specialist Type: Progress Notes Filed: 08/10/2023 9:19 [...] RT Tamir(R) August 10, 2023 8:59 AM [facility] 08-10-2023 History of Present illness Narrative Euflexxa Injection Right knee LOT # [id number] EXP 2024-06-22 Jennifer Hardin RN Associated Order(s): Large Joint Arthro/Inj: R knee joint Post-Procedure Diagnose(s): Chronic pain of right knee; Primary osteoarthritis of right knee Jatinder Warren MD Department of Orthopaedics Orthopaedics [address] [place] [address] Dept: [phone] Dept August 10, 2023 CHIEF COMPLAINT: Follow [...] knee joint Informed Consent Consent Obtained: Verbal Elizabeth Protocol A moment to CARE was completed. [...] Jatinder Warren MD documented in this encounter [facility] 07-23-2023 Miscellaneous Notes Triage Protocol [...] SYMPTOMS: no 10. :post menopausal Protocols used: [id number] documented in this encounter [facility] 07-09-2023 Note HNO ID: [id number] Author: Manisha Nichole APRN.SUPERVISOR [employer] Service: ? Author Type: Nurse Practitioner Type: [...] capsules with me (more content not included)... [facility] 07-09-2023 Instructions Manisha Nichole APRN.CNP - 07/09/2023 1:23 PM EDT [place]. documented in this encounter [facility] 07-09-2023 History of Present illness [...] fibrillation (HCC) Chondrocalcinosis, cause unspecified, involving lower leg(792.36) 04/25/2008 CPPD right leg (on xray) - has never had an acute pseudogout attack Chronic fatigue Compression fracture of L1 lumbar vertebra (HCC) Concussion Depression Diverticulosis of colon (without mention of hemorrhage) Diverticulosis of large intestine Duodenitis without mention of hemorrhage Dysphagia Dysphagia, unspecified(547.20) 08/01/2010 Esophageal reflux rare symptoms, had more [...] - Instructed patient to contact office or [id number] after-hours promptly should condition worsen or any new symptoms appear. - [facility] and after hours crisis line 5. [...] Manisha Nichole APRN.CNP documented in this encounter [facility] 06-23-2023 Note Patient Outreach (IN TMMN) JULIANNA TUCKER ([id number]) 1940 F NFR Date Time Provider Department [...] management [Z79.899] Order(s):MAGNESIUM BLD [SQMG1] Order #: [id number] FUTURE Prescriptions as of 06/26/2023 - acetaminophen [...] Asymptomatic Postmenopausal Status (Age-Related* 10/28/2012 Osteoarth NOS-L/Leg [GPJ6044] Palpitations [R00.2] 02/23/2009 Osteoporosis [M81.0] 07/04/2009 03/13/2012 [...] Protein-calorie malnutrition, unspecified sever*01/14/2023 Encounter Status:Closed by NichewithUSER on 06/26/23 [facility] 05-08-2023 Miscellaneous Notes Pt notified of results via [employer]. Cris Richards Ma Please let patient know that I reviewed all of her lab workups and the only thing I want to repeat at the moment is to recheck her sodium level next week. Order for BMP placed. Thank you Manisha Nichole APRN.CNP documented in this encounter [facility] 05-08-2023 Miscellaneous Notes BEHAVIORAL HEALTH SOCIAL WORK CONSULT NOTE Service Date: May 08, 2023 Patient was identified by name and Patient: Julianna Tucker [address] [place] [address] (home) [phone] (cell) PCP: Maurice Hackett MD [address] [place] [address] Patient identified for [facility] from: PCP Reason for referral: Resources Behavioral Health Resources: Psychology - talk therapy [facility] encounter type: Telephone Encounter Assessment: Referral made to engage patient experiencing anxiety . [facility] reviewed patient's chart and insurance to identify resources. Patient stated they are experiencing anxiety. Patient denies suicidal or homicidal ideation. Patient identified she is seeking therapy sooner than PSYCHIATRIC. [facility] will send resources to patient through [facility] per her request. Medications: Current Outpatient Medications [...] Reason for external referral: Wait times at PSYCHIATRIC too long Final Disposition: Resources given Patient Discharged?: Yes Patient reported that caregiver was able to meet their needs today?: Yes Internal Referrals : No Reason for External Referrals : Wait is too long Intervention: Supportive Listening Provided referral information Resources Provided: [facility] Time Spent: 15 minutes JIGNESH Kuo-S documented in this encounter [facility] 05-08-2023 Note HNO ID: [id number] Author: Manisha Nichole APRN.CNP Service: ? Author Type: Nurse Practitioner Type: [...] palpitations and saw her cardiology group. Sees [facility] for history of A-fib. Had a [...] 07/04/2009 osteopenia 06/15 (more content not included)... [facility] 05-08-2023 History of Present illness Narrative CC: [...] palpitations and saw her cardiology group. Sees [facility] for history of A-fib. Had a [...] weeks. - Reviewed concept of neurochemical imbalance [facility] depression/anxiety, treatment options and benefits of counseling in combination with medication. Also reviewed benefits of sleep hygeine, diet and exercise - Instructed patient to contact office or [id number] after-hours promptly should condition worsen or any new symptoms appear. - [facility] and after hours crisis line 2. [...] Manisha Nichole APRN.CNP documented in this encounter [facility] 04-21-2023 Note Patient Outreach (IN TMMN) JULIANNA TUCKER ([id number]) 1940 F NFR Date Time Provider Department [...] management [Z79.899] Order(s):MAGNESIUM BLD [SQMG1] Order #: [id number] FUTURE Prescriptions as of 04/24/2023 - vibegron [...] Asymptomatic Postmenopausal Status (Age-Related* 10/28/2012 Osteoarth NOS-L/Leg [[id number]] Palpitations [R00.2] 02/23/2009 Osteoporosis [M81.0] 07/04/2009 03/13/2012 [...] Encounter Status:Closed by PARKER HORN on 04/24/23 [facility] 04-21-2023 Miscellaneous Notes Patient calling in, given below results, verbalized understanding. Faith Hauser LPN Called and left a voicemail for the Patient to call back and ask for a nurse to receive the providers message. Josie Blankenship RN Please let patient know stool testing is negative. XR shows some stool burden but no obstruction documented in this encounter [facility] 04-20-2023 Note HNO ID: [id number] Author: Jose Rangel APRN.SERVICE ATTENDANT Service: ? Author Type: Nurse Specialist Type: Progress Notes Filed: 04/20/2023 4:41 PM Note Text: canceled [facility] 04-20-2023 History of Present illness Narrative canceled documented in this encounter [facility] 04-17-2023 Miscellaneous Notes Pt called [...] the test was still in process. Josie Blankenship, RN It is possible that the mold [...] some friends. Please call and advise. Josie Blankenship, RN Please let patient know her sodium is slightly lower than her normal. I would like her to get a n electrolyte drink like liquid IV or pedialyte and drink 2 glasses of that for the next couple days and we will recheck her labs on Thursday. documented in this encounter [facility] 04-16-2023 Note HNO ID: [id number] Author: Diana Meadows RT(R) Service: Radiology Author Type: Technologist Type: Progress [...] IV DATA: Not applicable SIGNED BY: RT Patrick(R) April 16, 2023 8:48 AM [facility] 04-16-2023 Note HNO ID: [id number] Author: Julio Downey APRN.SUPERVISOR [employer] Service: ? Author Type: Nurse Practitioner Type: [...] meal. anastrozole (ARIMI (more content not included)... [facility] 04-16-2023 History of Present illness Narrative Chief [...] - XR ABDOMEN 1V SUPINE Julio Downey APRN.SUPERVISOR [employer] documented in this encounter [facility] 04-15-2023 Miscellaneous Notes See previous [...] stool sample tested. documented in this encounter [facility] 04-08-2023 Note HNO ID: [id number] Author: Rishi Romero APRN.NIKO Service: ? Author Type: Nurse Practitioner Type: Progress Notes Filed: 04/08/2023 4:40 PM Note Text: Patient triaged at [facility]. Blacked out helped to bed. Still feeling woosy I will refer to ER, to drive pov to [facility] Er. [facility] 04-08-2023 History of Present illness Narrative Patient triaged at [facility]. Blacked out helped to bed. Still feeling woosy I will refer to ER, to drive pov to [facility] Er. documented in this encounter [facility] 04-08-2023 Miscellaneous Notes noted Patient [...] pain or bleeding. Protocols used: Dizziness - [id number] documented in this encounter [facility] 01-14-2023 Note HNO ID: [id number] Author: Sol Harvey Service: ? Author Type: [...] TRANSORAL DIAGNOSTIC 05/15 (more content not included)... [facility] 01-14-2023 Note HNO ID: [id number] Author: Caroline Day LPN Service: ? Author [...] Fungus, Pain, Ingrown Toenail Caroline Day LPN [facility] 01-14-2023 History of Present illness Narrative Initial [...] stocking Sol Harvey DPM Podiatry [address] [facility] [address] Dept: [phone] Dept AMB ROOMING INTAKE FLOWSHEET DATA Pain Pain Level: 7 Pain Location: Toe Description: Aching, Sore Duration Units: Years Frequency: Continuous Intervention/Comfort measure: Reposition, Relaxation Patient presents with: Left Foot - New, Nail Fungus, Pain, Ingrown Toenail Right Foot - New, Nail Fungus, Pain, Ingrown Toenail Caroline Day LPN documented in this encounter [facility] 11-14-2022 History of Present illness Narrative Reason [...] of events for the community and the college. and it is taking up a lot [...] does this and needs to start again. [facility]: Sees nephrology for this, next appointment is [...] Atrial Fibrillation - sees Dr. Cooley at [facility], last saw a few months ago. Denies [...] Maurice Hackett MD documented in this encounter [facility] 09-06-2022 Miscellaneous Notes Patient was able to have the Molnupiravir prescription transferred to [facility] and started the medicine last night. See pharmacy's note to change rx. documented in this encounter [facility] 09-05-2022 Instructions Ron García MD [...] healthcare provider to share your information with momondo, then your healthcare provider will report your use of molnupiravir during to [employer]. by calling or Pregnancyreporting.[employer]. For individuals who are sexually active with [...] molnupiravir for the treatment of adults with cgjk-dg-qlshecpv coronavirus disease 2019 (COVID-19) with positive results [...] virus. COVID-19 illnesses have ranged from very vswu-pk-xcuhos, including illness resulting in . While information [...] is an investigational medicine used to treat lavn-hi-smcqwndu COVID-19 in adults: with positive results of [...] serious illnesses Are taking any medicines (prescription, jjgw-jeb-tmiqhkc, vitamins, or herbal products). How do I [...] treat people with COVID-19. Go to https://www.fda.gov/emergency-prep whsifaeh-vgz-zwzbeiun/mcm-legalreg jvlaaio-lmo-cedsxt-framework/emerg brms-ugk-umrnntyexavgy for more information. It is your choice [...] to FDA MedWatch at www.fda.gov/medwatch or call 4-083-MAA-9465 ( ). How should I store molnupiravir? Store molnupiravir capsules at room temperature between 68 F to 77 F (20 C to 25 C). Keep molnupiravir and all medicines out of the reach of children and pets. How can I learn more about COVID-19? Ask your healthcare provider. Visit www.cdc.gov/COVID19 Contact your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 Referral ID Status Reason Start Date Expiration Date V isits Requested Visits Authorized [id number] Closed Auto-Generate d Referral 04/17/2022 05/17/[address] 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(s) 05/29/2020 7:38 AM [...] Referral Specialty Diagnoses / Procedures Referred By Phong antonio Referred To Contact Urology Diagnoses Urinary incontinence, unspecified type Procedures CONSULT TO UROLOGY OFFICE/OUTPATIENT [facility] 60-74 MINUTES Maurice Hackett MD [address] [place] [address] Referral ID Status Reason Start Date Expiration Date Visits Requested Visits Authorized [id number] Authorized PCP Requested Referral 11/14/2022 11/14/2023 1 1 Specialty Diagnoses / Procedures Referred By Contac t Referred To Contact Orthopedics Diagnoses Chronic pain of right knee Procedures CONSULT TO ORTHOPAEDICS OFFICE/OUTPATIENT [facility] 60-74 MINUTES Manisha Nichole [address] 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[employer] [address] [place] [address] Referral ID Status Reason Start Date Expiration Date Visits Requested Visits Authorized [id number] Authorized PCP Requested Referral 07/08/2024 1 1 Specialty Diagnoses / Procedures Referred By Contac t Referred To Contact CT IMAGING Diagnoses TIA (transient ischemic attack) Aphasia Ocular migraine Procedures CT BRAIN WO IVCON CT HEAD/BRAIN W/O CONTRAST MATERIAL Halle Sampson [address] 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[employer] [address] [place] [address] [place] [address] Referral ID Status Reason Start Date Expiration Date V isits Requested Visits Authorized [id number] Closed Auto-Generate d Referral 11/02/2023 12/01/2024 1 1 Additional Source Comments INFORMATION SOURCE (unrecogn ized section and content) DATE CREATED AUTHOR AUTHOR'S ORGANIZ ATION 04/22/2022 [facility] DATE CREATED AUTHOR AUTHOR'S ORGANIZ ATION 11/18/2023 [facility] Source Comments (unrecognize d section and content) In the event this informatio n is protected by the Federal Confidentiality of Alcohol and Drug Abuse Patient Records regulations: The Federal rules restrict any use of the information to criminally investigate or prosecute any alcohol or drug abuse patient.[facility] the event this information is protected by the Federal Confidentiality of Alcohol and Drug Abuse Patient Records regulations: The Federal rules restrict any use of the information to criminally investigate or prosecute any alcohol or drug abuse patient.[facility] the event this information is protected by the Federal Confidentiality of Alcohol and Drug Abuse Patient Records regulations: The Federal rules restrict any use of the information to criminally investigate or prosecute any alcohol or drug abuse patient.[facility] Center[facility] the event this information is protected by the Federal Confidentiality of Alcohol and Drug Abuse Patient Records regulations: The Federal rules restrict any use of the information to criminally investigate or prosecute any alcohol or drug abuse patient.[facility] CenterIn the event this information is protected by the Federal Confidentiality of Alcohol and Drug Abuse Patient Records regulations: The Federal rules restrict any use of the information to criminally investigate or prosecute any alcohol or drug abuse patient.[facility] CenterIn the event this information is protected by the Federal Confidentiality of Alcohol and Drug Abuse Patient Records regulations: The Federal rules restrict any use of the information to criminally investigate or prosecute any alcohol or drug abuse patient.[facility] CenterIn the event this information is protected by the Federal Confidentiality of Alcohol and Drug Abuse Patient Records regulations: The Federal rules restrict any use of the information to criminally investigate or prosecute any alcohol or drug abuse patient.[facility] CenterIn the event this information is protected by the Federal Confidentiality of Alcohol and Drug Abuse Patient Records regulations: The Federal rules restrict any use of the information to criminally investigate or prosecute any alcohol or drug abuse patient.[facility]In the event this information is protected by the Federal Confidentiality of Alcohol and Drug Abuse Patient Records regulations: The Federal rules restrict any use of the information to criminally investigate or prosecute any alcohol or drug abuse patient.[facility] CenterIn the event this information is protected by the Federal Confidentiality of Alcohol and Drug Abuse Patient Records regulations: The Federal rules restrict any use of the information to criminally investigate or prosecute any alcohol or drug abuse patient.[facility] CenterIn the event this information is protected by the Federal Confidentiality of Alcohol and Drug Abuse Patient Records regulations: The Federal rules restrict any use of the information to criminally investigate or prosecute any alcohol or drug abuse patient.[facility] CenterIn the event this information is protected by the Federal Confidentiality of Alcohol and Drug Abuse Patient Records regulations: The Federal rules restrict any use of the information to criminally investigate or prosecute any alcohol or drug abuse patient.[facility] CenterIn the event this information is protected by the Federal Confidentiality of Alcohol and Drug Abuse Patient Records regulations: The Federal rules restrict any use of the information to criminally investigate or prosecute any alcohol or drug abuse patient.[facility] CenterIn the event this information is protected by the Federal Confidentiality of Alcohol and Drug Abuse Patient Records regulations: The Federal rules restrict any use of the information to criminally investigate or prosecute any alcohol or drug abuse patient.[facility] CenterIn the event this information is protected by the Federal Confidentiality of Alcohol and Drug Abuse Patient Records regulations: The Federal rules restrict any use of the information to criminally investigate or prosecute any alcohol or drug abuse patient.[facility] CenterIn the event this information is protected by the Federal Confidentiality of Alcohol and Drug Abuse Patient Records regulations: The Federal rules restrict any use of the information to criminally investigate or prosecute any alcohol or drug abuse patient.[facility] CenterIn the event this information is protected by the Federal Confidentiality of Alcohol and Drug Abuse Patient Records regulations: The Federal rules restrict any use of the information to criminally investigate or prosecute any alcohol or drug abuse patient.[facility] CenterIn the event this information is protected by the Federal Confidentiality of Alcohol and Drug Abuse Patient Records regulations: The Federal rules restrict any use of the information to criminally investigate or prosecute any alcohol or drug abuse patient.[facility] CenterIn the event this information is protected by the Federal Confidentiality of Alcohol and Drug Abuse Patient Records regulations: The Federal rules restrict any use of the information to criminally investigate or prosecute any alcohol or drug abuse patient.[facility] CenterIn the event this information is protected by the Federal Confidentiality of Alcohol and Drug Abuse Patient Records regulations: The Federal rules restrict any use of the information to criminally investigate or prosecute any alcohol or drug abuse patient.[facility] CenterIn the event this information is protected by the Federal Confidentiality of Alcohol and Drug Abuse Patient Records regulations: The Federal rules restrict any use of the information to criminally investigate or prosecute any alcohol or drug abuse patient.[facility] CenterIn the event this information is protected by the Federal Confidentiality of Alcohol and Drug Abuse Patient Records regulations: The Federal rules restrict any use of the information to criminally investigate or prosecute any alcohol or drug abuse patient.[facility] CenterIn the event this information is protected by the Federal Confidentiality of Alcohol and Drug Abuse Patient Records regulations: The Federal rules restrict any use of the information to criminally investigate or prosecute any alcohol or drug abuse patient.[facility] CenterIn the event this information is protected by the Federal Confidentiality of Alcohol and Drug Abuse Patient Records regulations: The Federal rules restrict any use of the information to criminally investigate or prosecute any alcohol or drug abuse patient.[facility] CenterIn the event this information is protected by the Federal Confidentiality of Alcohol and Drug Abuse Patient Records regulations: The Federal rules restrict any use of the information to criminally investigate or prosecute any alcohol or drug abuse patient.[facility] CenterIn the event this information is protected by the Federal Confidentiality of Alcohol and Drug Abuse Patient Records regulations: The Federal rules restrict any use of the information to criminally investigate or prosecute any alcohol or drug abuse patient.[facility] CenterIn the event this information is protected by the Federal Confidentiality of Alcohol and Drug Abuse Patient Records regulations: The Federal rules restrict any use of the information to criminally investigate or prosecute any alcohol or drug abuse patient.[facility] CenterIn the event this information is protected by the Federal Confidentiality of Alcohol and Drug Abuse Patient Records regulations: The Federal rules restrict any use of the information to criminally investigate or prosecute any alcohol or drug abuse patient.[facility] CenterIn the event this information is protected by the Federal Confidentiality of Alcohol and Drug Abuse Patient Records regulations: The Federal rules restrict any use of the information to criminally investigate or prosecute any alcohol or drug abuse patient.[facility] CenterIn the event this information is protected by the Federal Confidentiality of Alcohol and Drug Abuse Patient Records regulations: The Federal rules restrict any use of the information to criminally investigate or prosecute any alcohol or drug abuse patient.[facility] CenterIn the event this information is protected by the Federal Confidentiality of Alcohol and Drug Abuse Patient Records regulations: The Federal rules restrict any use of the information to criminally investigate or prosecute any alcohol or drug abuse patient.[facility] CenterIn the event this information is protected by the Federal Confidentiality of Alcohol and Drug Abuse Patient Records regulations: The Federal rules restrict any use of the information to criminally investigate or prosecute any alcohol or drug abuse patient.[facility] CenterIn the event this information is protected by the Federal Confidentiality of Alcohol and Drug Abuse Patient Records regulations: The Federal rules restrict any use of the information to criminally investigate or prosecute any alcohol or drug abuse patient.[facility] CenterIn the event this information is protected by the Federal Confidentiality of Alcohol and Drug Abuse Patient Records regulations: The Federal rules restrict any use of the information to criminally investigate or prosecute any alcohol or drug abuse patient.[facility] CenterIn the event this information is protected by the Federal Confidentiality of Alcohol and Drug Abuse Patient Records regulations: The Federal rules restrict any use of the information to criminally investigate or prosecute any alcohol or drug abuse patient.[facility] CenterIn the event this information is protected by the Federal Confidentiality of Alcohol and Drug Abuse Patient Records regulations: The Federal rules restrict any use of the information to criminally investigate or prosecute any alcohol or drug abuse patient.[facility] CenterIn the event this information is protected by the Federal Confidentiality of Alcohol and Drug Abuse Patient Records regulations: The Federal rules restrict any use of the information to criminally investigate or prosecute any alcohol or drug abuse patient.[facility] CenterIn the event this information is protected by the Federal Confidentiality of Alcohol and Drug Abuse Patient Records regulations: The Federal rules restrict any use of the information to criminally investigate or prosecute any alcohol or drug abuse patient.[facility] CenterIn the event this information is protected by the Federal Confidentiality of Alcohol and Drug Abuse Patient Records regulations: The Federal rules restrict any use of the information to criminally investigate or prosecute any alcohol or drug abuse patient.[facility] CenterIn the event this information is protected by the Federal Confidentiality of Alcohol and Drug Abuse Patient Records regulations: The Federal rules restrict any use of the information to criminally investigate or prosecute any alcohol or drug abuse patient.[facility] CenterIn the event this information is protected by the Federal Confidentiality of Alcohol and Drug Abuse Patient Records regulations: The Federal rules restrict any use of the information to criminally investigate or prosecute any alcohol or drug abuse patient.[facility] CenterIn the event this information is protected by the Federal Confidentiality of Alcohol and Drug Abuse Patient Records regulations: The Federal rules restrict any use of the information to criminally investigate or prosecute any alcohol or drug abuse patient.[facility] CenterIn the event this information is protected by the Federal Confidentiality of Alcohol and Drug Abuse Patient Records regulations: The Federal rules restrict any use of the information to criminally investigate or prosecute any alcohol or drug abuse patient.[facility] Center[facility] the event this information is protected by the Federal Confidentiality of Alcohol and Drug Abuse Patient Records regulations: The Federal rules restrict any use of the information to criminally investigate or prosecute any alcohol or drug abuse patient.[facility] CenterIn the event this information is protected by the Federal Confidentiality of Alcohol and Drug Abuse Patient Records regulations: The Federal rules restrict any use of the information to criminally investigate or prosecute any alcohol or drug abuse patient.[facility] CenterIn the event this information is protected by the Federal Confidentiality of Alcohol and Drug Abuse Patient Records regulations: The Federal rules restrict any use of the information to criminally investigate or prosecute any alcohol or drug abuse patient.[facility] CenterIn the event this information is protected by the Federal Confidentiality of Alcohol and Drug Abuse Patient Records regulations: The Federal rules restrict any use of the information to criminally investigate or prosecute any alcohol or drug abuse patient.[facility] CenterIn the event this information is protected by the Federal Confidentiality of Alcohol and Drug Abuse Patient Records regulations: The Federal rules restrict any use of the information to criminally investigate or prosecute any alcohol or drug abuse patient.[facility] CenterIn the event this information is protected by the Federal Confidentiality of Alcohol and Drug Abuse Patient Records regulations: The Federal rules restrict any use of the information to criminally investigate or prosecute any alcohol or drug abuse patient.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 injection given Specialty Diagnoses / Procedures Referred By Contac t Referred To Contact Orthopedics Diagnoses Chronic pain of right knee Procedures CONSULT TO ORTHOPAEDICS OFFICE/OUTPATIENT [facility] MDM 60-74 MINUTES Manisha Nichole [employer] 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 [address] [place] [address] Referral ID Status Reason Start Date Expiration Date V isits Requested Visits Authorized [id number] Closed PCP Requested Referral 07/09/2023 07/08/2024 1 1 Reason Comments Patient Request Reason Comments Release Of Medical Records Reason Comments infected belly button Problems with speaking and thought proce ss Reason Comments Belly button infection Smelly and itchy drainage Neurologic Problem Difficulty speaking at times, thought process Reason Comments Radiology CT Specialty Diagnoses / Procedures Referred By Contac t Referred To Contact CT IMAGING Diagnoses TIA (transient ischemic attack) Aphasia Ocular migraine Procedures CT BRAIN WO IVCON CT HEAD/BRAIN W/O CONTRAST MATERIAL Halle Sampson, [employer] [employer] 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 [address] [place] [address] [place] [address] Referral ID Status Reason Start Date Expiration Date V isits Requested Visits Authorized [id number] Closed Auto-Generate d Referral 11/02/2023 12/01/2024 1 1 Care Teams (unrecognized sec tion and content) Application Development Intern Relationship Specialty Start Date End Date Maurice Hackett MD [address] [place], [place] [id number] PCP - General Internal Medicine 08/17/15 Application Development Intern Relationship Specialty Start Date End Date Maurice Hackett MD [address] [place], [place] [id number] PCP - General Internal Medicine 08/17/15 Application Development Intern Relationship Specialty Start Date End Date Maurice Hackett MD [address] [place] [address] PCP - General Internal Medicine 08/17/15 Application Development Intern Relationship Specialty Start Date End Date Maurice Hackett MD [address] [place] [address] PCP - General Internal Medicine 08/17/15 Application Development Intern Relationship Specialty Start Date End Date Maurice Hackett MD [address] [facility] [place] [address] PCP - General Internal Medicine 08/17/15 Application Development Intern Relationship Specialty Start Date End Date Maurice Hackett MD [address] [place] [address] PCP - General Internal Medicine 08/17/15 Application Development Intern Relationship Specialty Start Date End Date Maurice Hackett MD [address] [facility] [place] [address] PCP - General Internal Medicine 08/17/15 Application Development Intern Relationship Specialty Start Date End Date Maurice Hackett MD [address] [facility] [place] [address] PCP - General Internal Medicine 08/17/15 Application Development Intern Relationship Specialty Start Date End Date Maurice Hackett MD [address] [facility] [place] [address] PCP - General Internal Medicine 08/17/15 Application Development Intern Relationship Specialty Start Date End Date Maurice Hackett MD [address] [facility] [place] [address] PCP - General Internal Medicine 08/17/15 Application Development Intern Relationship Specialty Start Date End Date Maurice Hackett MD [address] [place] [address] PCP - General Internal Medicine 08/17/15 Application Development Intern Relationship Specialty Start Date End Date Maurice Hackett MD [address] [facility] [place] [address] PCP - General Internal Medicine 08/17/15 Application Development Intern Relationship Specialty Start Date End Date Maurice Hackett MD [address] [facility] [place] [address] PCP - General Internal Medicine 08/17/15 Application Development Intern Relationship Specialty Start Date End Date Maurice Hackett MD [address] [facility] [place] [address] PCP - General Internal Medicine 08/17/15 Application Development Intern Relationship Specialty Start Date End Date Maurice Hackett MD [address] [facility] [place] [address] PCP - General Internal Medicine 08/17/15 Application Development Intern Relationship Specialty Start Date End Date Maurice Hackett MD [address] [facility] [place] [address] PCP - General Internal Medicine 08/17/15 Application Development Intern Relationship Specialty Start Date End Date Maurice Hackett MD [address] [facility] [place] [address] PCP - General Internal Medicine 08/17/15 Application Development Intern Relationship Specialty Start Date End Date Maurice Hackett MD [address] [facility] [place] [address] PCP - General Internal Medicine 08/17/15 Application Development Intern Relationship Specialty Start Date End Date Maurice Hackett MD [address] [facility] [place] [address] PCP - General Internal Medicine 08/17/15 Application Development Intern Relationship Specialty Start Date End Date Maurice Hackett MD [address] [facility] [place] [address] PCP - General Internal Medicine 08/17/15 Application Development Intern Relationship Specialty Start Date End Date Maurice Hackett MD [address] [place] [address] PCP - General Internal Medicine 08/17/15 Application Development Intern Relationship Specialty Start Date End Date Maurice Hackett MD [address] [place] [address] PCP - General Internal Medicine 08/17/15 Application Development Intern Relationship Specialty Start Date End Date Maurice Hackett MD [address] [place] [address] PCP - General Internal Medicine 08/17/15 Application Development Intern Relationship Specialty Start Date End Date Maurice Hackett MD [address] [place] [address] PCP - General Internal Medicine 08/17/15 Application Development Intern Relationship Specialty Start Date End Date Maurice Hackett MD [address] [place] [address] PCP - General Internal Medicine 08/17/15 Application Development Intern Relationship Specialty Start Date End Date Maurice Hackett MD [address] [place] [address] PCP - General Internal Medicine 08/17/15 Application Development Intern Relationship Specialty Start Date End Date Maurice Hackett MD [address] [place] [address] PCP - General Internal Medicine 08/17/15 Application Development Intern Relationship Specialty Start Date End Date Maurice Hackett MD [address] [place] [address] PCP - General Internal Medicine 08/17/15 Application Development Intern Relationship Specialty Start Date End Date Maurice Hackett MD [address] [place] [address] PCP - General Internal Medicine 08/17/15 Application Development Intern Relationship Specialty Start Date End Date Maurice Hackett MD [address] [place] [address] PCP - General Internal Medicine 08/17/15 Application Development Intern Relationship Specialty Start Date End Date Maurice Hackett MD [address] [place] [address] PCP - General Internal Medicine 08/17/15 Application Development Intern Relationship Specialty Start Date End Date Maurice Hackett MD [address] [place] [address] PCP - General Internal Medicine 08/17/15 Application Development Intern Relationship Specialty Start Date End Date Maurice Hackett MD [address] [place] [address] PCP - General Internal Medicine 08/17/15 FOR [...] BE BASED ON THE PRIMARY CLINICAL RECORDS. [employer] or [employer] [facility]. provides no warranty or guarantee of the accuracy or completeness of information in this document.
[2023-11-21 22:10] VITALS: BP 143/76; PULSE 77; RESP 16; O2SAT 97
--- NOTE | 2023-11-21 23:07 | PCM.HP.STD ---
HPI - General General Date of Admission: 11/21/23 Date of Service: 11/21/23 Chief Complaint: Intractable nausea/emesis. HPI Narrative The patient is an 83 y/o F w/ PMHx: Chronic diarrhea, PAF/Flutter, Chronic hyponatremia w/ chart reported history SIADH, Adrenal Insufficiency, Chronic migraines, Lichen sclerosis, GERD, Hx L Breast CA, Hx TIA who presents to the [facility] ED on 11/21/23 with history of onset intractable nausea and emesis eventually dry heaving only with inability to keep anything down with no associated abdominal cramping or pain and no diarrhea above her baseline with no recent upper respiratory symptoms but difficulty maintaining appropriate hydration prompting eventual ED evaluation. who is also present in the ED notes he has been well and has not been ill. They deny eating any abnormal foods recently and have been eating the same meals. Workup in the ED included T96.4, heart rate 81, BP 144/98, respiratory rate 18, 95% on room air, CBC with WBC 4.8, human 12.3, platelets 278 without marked shift, CMP with sodium 126, chloride 94, glucose 145 otherwise not marked appearing, urinalysis with no obvious evidence of UTI. In the ED patient ministered 1 L normal saline as well as Reglan 10 mg IV x 1. [facility] Medical History (Updated 11/21/23 @ 23:[address] 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 Ovarian cyst Paroxysmal atrial fibrillation Paroxysmal atrial flutter SIADH (syndrome of inappropriate ADH production) TIA (transient ischemic attack) Home Medications Bilaterl knee high compression stockings (10-20) #2 ea 05/29/22 [Rx Last Taken Unknown] clobetasol 0.05 % topical cream 1 applic topical .COMPLEX #15 grams 08/05/22 [Rx Last Taken Unknown] calcium carbonate 600 mg calcium (1,500 mg) tablet 600 mg PO DAILY 10/14/22 [History Last Taken Unknown] cholecalciferol (vitamin D3) 10 mcg (400 unit) capsule 2,000 unit PO DAILY supplement 10/14/22 [History Last Taken Unknown] esomeprazole magnesium 40 mg capsule,delayed release See Rx Instructions .Route .COMPLEX #90 caps 12/18/22 [Rx Last Taken Unknown] magnesium oxide 400 mg (241.3 mg magnesium) tablet 400 mg PO DAILY #90 tabs 01/19/23 [Rx Last Taken Unknown] metoprolol succinate 25 mg tablet,extended release 24 hr 25 mg PO .COMPLEX #135 tabs 01/28/23 [Rx Last Taken Unknown] metoclopramide HCl 10 mg tablet (Reglan) 10 mg PO Q6H PRN nausea and vomiting 3 days #18 tabs 04/25/23 [Rx Last Taken Unknown] apixaban 5 mg tablet 5 mg PO BID #60 tabs 07/23/23 [Rx Last Taken Unknown] meclizine 25 mg tablet 25 mg PO TID PRN dizziness 3 days #9 tabs 08/29/23 [Rx Last Taken Unknown] fludrocortisone 0.1 mg tablet 0.05 mg (1/2 x 0.1 mg) .Route .COMPLEX #8 tabs 09/22/23 [Rx Last Taken Unknown] dofetilide 250 mcg capsule See Rx Instructions .Route .COMPLEX #180 caps 10/12/23 [Rx Last Taken Unknown] Allergy/AdvReac Type Severity Reaction Status Date / Time cantaloupe Allergy Severe Anaphylaxis Verified 11/21/23 19:35 grass pollen Allergy Severe Unknown Verified 11/21/23 19:35 Penicillins Allergy Severe Anaphylaxis Verified 11/21/23 19:35 Sulfa (Sulfonamide Allergy Unknown Other Verified 11/21/23 19:35 Antibiotics) mold Allergy Unknown Verified 11/21/23 19:35 pollen extracts Allergy Unknown Verified 11/21/23 19:35 erythromycin base AdvReac Severe Unknown Verified 11/21/23 19:35 lansoprazole [From Prevacid] AdvReac Severe Nausea/Vom/ Verified 11/21/23 19:35 Diarrhea adhesive tape AdvReac Intermediate Rash Verified 11/21/23 19:35 Family History Father Unknown family medical history Mother Uterine cancer Thyroid disorder Kidney disease Hypertension CHF (congestive heart failure) Arthritis Surgical History H/O breast biopsy H/O left mastectomy H/O lymph node biopsy History of cataract surgery History of colonoscopy (05/2019) History of dilation and curettage History of esophagogastroduodenoscopy (EGD) (05/2019) History of left heart catheterization (09/2012) History of radiofrequency ablation (RFA) procedure for cardiac arrhythmia (08/2013) History of removal of ovarian cyst Social History (Updated 11/21/23 @ 23:[address] Michelle Hunt MD) household members: spouse Smoking Status: Never smoker alcohol intake: current alcohol intake frequency: holidays/special occasions only substance use type: does not use caffeine: Yes what type of physical activity do you participate in: walking and yoga frequency: 3-4 times per week seatbelt use: always do you feel safe at home: Yes additional social history: -Tony Patient and are both retired ROS ROS Narrative Admission Review of Systems: CONSTITUTIONAL: No weight loss, fever, chills, + weakness or fatigue. HEENT: Eyes: No visual loss, blurred vision, double vision or yellow sclerae. Ears, Nose, Throat: No hearing loss, sneezing, congestion, runny nose or sore throat. SKIN: No rash or itching, lesions, wounds. CARDIOVASCULAR: No chest pain, chest pressure or chest discomfort, palpitations, edema, orthopnea, syncopal events. RESPIRATORY: No shortness of breath, cough or sputum, wheezing, hemoptysis. GASTROINTESTINAL: + Anorexia, nausea, emesis. Chronic diarrhea but not any change from baseline. No abdominal pain, melena, BRBPR. GENITOURINARY: No dysuria, frequency, urgency or retention. NEUROLOGICAL: + Chronic debility, some chart reported history of disequilibrium. No headache, syncope, paralysis, ataxia, numbness or tingling in the extremities, focal weakness, change in bowel or bladder control, seizure. MUSCULOSKELETAL: + muscle, back pain, joint pain or stiffness. HEMATOLOGIC: No anemia. + Easy bleeding/bruising. LYMPHATICS: No enlarged nodes. No history of splenectomy. PSYCHIATRIC: No history of depression or anxiety. ENDOCRINOLOGIC: No reports of sweating, cold or heat intolerance. No polyuria or polydipsia. ALLERGIES: + History of anaphylaxis. Vital Signs Vital Signs Vital Signs: 11/21/23 19:36 11/21/23 21:01 11/21/23 21:03 Temperature 96.4 F L Temperature Source Temporal Pulse Rate 81 78 Respiratory Rate 18 18 Blood Pressure 144/98 H 154/90 H Blood Pressure Mean 113 111 Pulse Ox 95 98 99 Oxygen Delivery Method Room Air Room Air Room Air 11/21/23 22:10 Temperature Temperature Source Pulse Rate 77 Respiratory Rate 16 Blood Pressure 143/76 H Blood Pressure Mean 98 Pulse Ox 97 Oxygen Delivery Method Room Air Weight Weight: 116 lb Body Mass Index (BMI) 18.1 Physical Exam Narrative Physical Examination: General: Awake, alert, oriented x 3 and cooperative, seated upright in the ED bed, fatigued, holding emesis bag but notes somewhat improved since initial ED arrival. Skin: Normal color, normal turgor, no icterus, no cyanosis. HEENT: AT/NC, EOMI, PERRLA, moderately dry MM, no carotid bruits or JVD noted. Lungs: CTA bilaterally, moderate effort, mild decrease BL bases, no rales, ronchi or wheezing. Heart: Regular rate and rhythm; no gallop, rub audible. Abdomen: Soft, NTTP, ND, mildly hyperactive BS, no appreciated HSM. Extremities: No cyanosis, clubbing, or edema. Neurological: Patient awake, alert, oriented as noted, cognitive function intact; pupils equally reactive to light and accommodation, cranial nerves II-XII grossly normal, moving all 4 extremities, no focal deficits, strength improving but remains moderately globally decreased secondary to acute presentation complaints. Psychiatric: Affect appears mildly flat, fatigued, no acute evidence of depressive or anxiety feelings. Results Lab / Micro Data 11/21/23 19:55 11/21/23 19:55 Labs: Laboratory Results - last 24 hr 11/21/23 19:55: WBC 4.8, RBC 4.19 L, Hgb 12.3, Hct 36.4 L, MCV 86.9, MCH 29.4, MCHC 33.8, RDW Std Deviation 44.6 H, RDW Coeff of Idania 14.0, Plt Count 278, MPV 8.9, Immature Gran % (Auto) 0.200, Neut % (Auto) 60.6, Lymph % (Auto) 32.0, [place] % (Auto) 6.2, Eos % (Auto) 0.4, Baso % (Auto) 0.6, Absolute Neuts (auto) 2.9, Absolute Lymphs (auto) 1.55, Nucleated RBC % 0, Sodium 126 L, Potassium 3.6, Chloride 94 L, Carbon Dioxide 23.0, Anion Gap 9, BUN 11, Creatinine 0.79, Estim Creat Clear Calc 45.81, Est GFR (MDRD) Af Amer 90, Est GFR (MDRD) Non-Af 74, BUN/Creatinine Ratio 13.9, Glucose 145 H, Calcium 8.5, Total Bilirubin 0.90, AST 20, ALT 21, Alkaline Phosphatase 78, Total Protein 7.3, Albumin 3.3, Globulin 4.0, Albumin/Globulin Ratio 0.8 L 11/21/23 21:20: Urine Color Yellow, Urine Clarity Clear, Urine pH 8.0, Ur Specific [place] 1.015, Urine Protein 15 H, Urine Glucose (UA) 100 H, Urine Ketones 15 H, Urine Occult Blood 10 H, Urine Nitrite Negative, Urine Bilirubin Negative, Urine Urobilinogen Normal, Ur Leukocyte Esterase Negative, Urine RBC 0 SEEN, Urine WBC 0 SEEN, Ur Squamous Epith Cells 0 SEEN, Urine Bacteria 0 SEEN, Urine Mucus 0 SEEN Assessment & Plan Assessment/Plan (1) Acute hyponatremia: (2) Intractable nausea and vomiting: PLAN: Plan The patient is an 83 y/o F w/ PMHx: Chronic diarrhea, PAF/Flutter, Chronic hyponatremia w/ chart reported history SIADH, Adrenal Insufficiency, Chronic migraines, Lichen sclerosis, GERD, Hx L Breast CA, Hx TIA who presents to the [facility] ED on 11/21/23 with history of onset intractable nausea and emesis eventually dry heaving only with inability to keep anything down with no associated abdominal cramping or pain and no diarrhea above her baseline with no recent upper respiratory symptoms but difficulty maintaining appropriate hydration prompting eventual ED evaluation. #1. Intractable nausea and emesis, unclear exact etiology with acute on chronic hyponatremia with history of SIADH, acute presentation with hypovolemic etiology given GI losses: Will admit to medical surgical floor, will continue judicious hydration, will obtain respiratory for viral panel be cautious, given no diarrhea will defer stool studies but if onset will obtain C. difficile and enteric to be cautious, suspect viral etiology, admission sodium to 126, chloride 94, baseline sodium primarily in the low 1 30-1 31 range but does vacillate lower, will continue home PPI, will allow clear liquids and advance diet as tolerated, maintain on fall precautions, PT/OT/case management consulted for discharge planning. #2. Hyperglycemia: Mild, admission glucose 145, likely stress response given acute presentation #1, if repeat CMP in a.m. with elevated glucose low threshold to obtain he will A1c and further investigate. #3. PAF/flutter: Patient status post RFA, we will continue patient home metoprolol, dofetilide as well as Eliquis regimen. #4. Lichen sclerosus: Patient outpatient chronically on clobetasol topical cream, need to clarify if she is currently using or if is in a period of remission. #5. 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 #6. History of TIA: We will continue patient on apixaban, hypertensive regimen as noted, further investigation of hyperglycemia as noted, not on statin therapy. #7. Chart reported history of chronic diarrhea: Noted in history also in recent oncology notes, patient denies any diarrhea that is worsened above baseline with current presentation, will continue to closely monitor, loperamide if appropriate. #8. Chronic adrenal insufficiency: We will continue patient home fludrocortisone regimen. #9. GERD: We will continue patient on PPI. #10. DVT prophylaxis: The patient home apixaban regimen. #11. CODE status: Patient PASCUAL is her who is present and living will is currently in place. Discussed CODE status at length including difference between FULL code, DNR-CCA and DNR-CC status. Following discussions about the differences in these status, requested Full Code. Both patient and asked several questions regarding what happens to the body with codes and prognosis. Advanced Care Planning Face to Face Time: 16 minutes. Charges/Coding Visit Charges Inpatient E&M: 01910 Init Hosp L2 Procedures Hospitalists Procedures: 77360 Advncd Care Plan 30 Min
[2023-11-21 23:36] LABS: Magnesium 2.1 mg/dL (1.6-2.6); Phosphorus 2.5 mg/dL (2.5-4.9)
[2023-11-21 23:41] VITALS: BP 135/66; PULSE 78; RESP 17; TEMP 36.4; O2SAT 98
--- OUTSIDE RECORDS SUMMARY | 2023-11-22 00:01 | XMS RPT_ITS | CCD ---
Author Name Unknown Address [address] [place] [address] Organization [facility] Care Team Providers Care Stone Rubber Name Role Phone Roof GROUNDS MAINTENANCE MANAGER, Handy Sullivan Unavailable RON GARCÍA Unavailable Unavailable JONATHAN LLOYD Unavailable Unavailable GANTA, MAURICE C Unavailable Unavailable GANTA, MAURICE C Unavailable Unavailable Ganta Maurice THAO Primary Care Provider [phone] Maurice Hackett MD Primary Care Provider [phone] Karly THAO Maurice Primary Care Provider GANTA, MAURICE Primary Care Unavailable JATINDER WARREN Attending Unavailable GANTA, MAURICE Primary Care Unavailable SOL HARVEY Attending Unavailable GANTA, MAURICE Primary Care Unavailable SOL HARVEY Referring Unavailable GANTA, MAURICE Primary Care Unavailable GANTA, MAURICE Primary Care Unavailable OLDERMANISHA Attending Unavailable GANTA, MAURICE Primary Care Unavailable HALLE SAMPSON Attending Unavailable GANTA, MAURICE Primary Care Unavailable MANISHA NICHOLE Attending Unavailable GANTA, MAURICE Primary Care [...] Primary Care Unavailable JULIO DOWNEY Referring Unavailable [facility] Unavailable OLDERMANISHA Referring Unavailable [facility] Care Unavailable JULIO DOWNEY [facility] OLDER MANISHA Attending Unavailable [facility] Care Unavailable OLDER MANISHA Referring Unavailable Allergies Allergy Classification Reported Allergen(s) Allergy Type Date of Onset Reaction(s) Facility (3 sources) Adhesive Tape; Translations: [ADHESIVE TAPE] allergy to substance 7 Unknown [facility] Work Phone: [phone] (20 sources) bee pollen; Translations: [POLLEN] allergy to substance 5 unknown [facility] Work Phone: [phone]) (20 sources) cantaloupe allergenic extract; Translations: [CANTALOUPE] Drug Allergy 5 unknown [facility] Work Phone: [phone]) (20 sources) erythromycin; Translations: [ERYTHROMYCIN] Drug Allergy 5 GI Upset [facility] Work Phone: [phone]) (20 sources) Grass pollen; Translations: [GRASS POLLEN] drug allergy 5 unknown [facility] Work Phone: [phone] (3 sources) lansoprazole Drug Allergy 7 unknown [facility] Work Phone: [phone] (20 sources) mold extract; Translations: [MOLD] Drug Allergy 5 unknown [facility] Work Phone: [phone] (3 sources) penicillin Drug Allergy 1 Inside of mouth swelled [facility] Work Phone: [phone] (3 sources) Sulfonamides (Antibiotic) drug allergy 7 unknown [facility] Work Phone: [phone]) (20 sources) Adhesive Tape; Translations: [ADHESIVE TAPE (ROSINS)] Allergy to substance 4 Rash [facility] Work Phone: (20 sources) lansoprazole; Translations: [LANSOPRAZOLE] Drug Allergy 4 Diarrhea [facility] Work Phone: [phone] (6 sources) Penicillins; Translations: [PENICILLINS] Propensity to adverse reactions 5 Rash, Swelling [facility] Work Phone: (20 sources) Sulfonamides (Antibiotic); Translations: [SULFA (SULFONAMIDE ANTIBIOTICS)] Propensity to adverse reactions 5 [facility] Work Phone: (20 sources) Penicillins Propensity to adverse reactions 5 Rash, Swelling [facility] Work Phone: (12 sources) Vibegron; Translations: [VIBEGRON] Drug Intolerance 3 Diarrhea [facility] Work Phone: Medications Current Medications Medication Drug [...] MG TABS As needed, takes occasionally ACETAMINOPHEN [id number] Jacquelin Mclean Problems Active Problems Problem Classification [...] (2 sources) Patient encounter status; Translations: [Other assisted (current) drug therapy] Episodic Other aftercare (1 [...] 11-18-2019 Episodic Other aftercare (1 source) Other assisted (current) drug therapy; Translations: [Medication management] Onset: [...] 15:20-0500 Body weight 53.66 kg Halle Camilla INSTRUCTIONAL DESIGNER.PEN AND PENCIL REPAIRER Work Phone: [facility] 11-02-2023 15:20-0500 Diastolic blood pressure 64 mm[Hg] Halle Camilla INSTRUCTIONAL DESIGNER.PEN AND PENCIL REPAIRER Work Phone: [facility] 11-02-2023 15:20-0500 Heart rate 64 /min Halle Camilla INSTRUCTIONAL DESIGNER.PEN AND PENCIL REPAIRER Work Phone: [facility] 11-02-2023 15:20-0500 Respiratory rate 16 /min Halle Camilla INSTRUCTIONAL DESIGNER.PEN AND PENCIL REPAIRER Work Phone: [facility] 11-02-2023 15:20-0500 SaO2% (BldA) [Mass fraction] 99 % Halle Camilla INSTRUCTIONAL DESIGNER.PEN AND PENCIL REPAIRER Work Phone: [facility] 11-02-2023 15:20-0500 Systolic blood pressure 122 mm[Hg] Halle Camilla INSTRUCTIONAL DESIGNER.PEN AND PENCIL REPAIRER Work Phone: [facility] 07-09-2023 12:59-0400 Body weight 54.43 kg Manisha Older INSTRUCTIONAL DESIGNER.PEN AND PENCIL REPAIRER Work Phone: [facility] 07-09-2023 12:59-0400 Diastolic blood pressure 80 mm[Hg] Manisha Older INSTRUCTIONAL DESIGNER.PEN AND PENCIL REPAIRER Work Phone: [facility] 07-09-2023 12:59-0400 Heart rate 62 /min Manisha Older INSTRUCTIONAL DESIGNER.PEN AND PENCIL REPAIRER Work Phone: [facility] 07-09-2023 12:59-0400 Respiratory rate 16 /min Manisha Older INSTRUCTIONAL DESIGNER.PEN AND PENCIL REPAIRER Work Phone: [facility] 07-09-2023 12:59-0400 SaO2% (BldA) [Mass fraction] 99 % Manisha Older INSTRUCTIONAL DESIGNER.PEN AND PENCIL REPAIRER Work Phone: [facility] 07-09-2023 12:59-0400 Systolic blood pressure 130 mm[Hg] Manisha Older INSTRUCTIONAL DESIGNER.PEN AND PENCIL REPAIRER Work Phone: [facility] 05-08-2023 08:00-0400 Body temperature 97.39 [degF] Manisha Older INSTRUCTIONAL DESIGNER.PEN AND PENCIL REPAIRER Work Phone: [facility] 05-08-2023 08:00-0400 Body weight 52.62 kg Manisha Older INSTRUCTIONAL DESIGNER.PEN AND PENCIL REPAIRER Work Phone: [facility] 05-08-2023 08:00-0400 Diastolic blood pressure 80 mm[Hg] Manisha Older INSTRUCTIONAL DESIGNER.PEN AND PENCIL REPAIRER Work Phone: [facility] 05-08-2023 08:00-0400 Heart rate 60 /min Manisha Older INSTRUCTIONAL DESIGNER.PEN AND PENCIL REPAIRER Work Phone: [facility] 05-08-2023 08:00-0400 Respiratory rate 16 /min Manisha Older INSTRUCTIONAL DESIGNER.PEN AND PENCIL REPAIRER Work Phone: [facility] 05-08-2023 08:00-0400 Systolic blood pressure 128 mm[Hg] Manisha Older INSTRUCTIONAL DESIGNER.PEN AND PENCIL REPAIRER Work Phone: [facility] 04-16-2023 07:19-0400 Diastolic blood pressure 82 mm[Hg] Jose Rangel INSTRUCTIONAL DESIGNER.ACCREDITED LEGAL SECRETARY Work Phone: [facility] 04-16-2023 07:19-0400 Systolic blood pressure 138 mm[Hg] Jose Rangel INSTRUCTIONAL DESIGNER.ACCREDITED LEGAL SECRETARY Work Phone: [facility] 04-16-2023 07:13-0400 Body temperature 96.01 [degF] Jose Rangel INSTRUCTIONAL DESIGNER.ACCREDITED LEGAL SECRETARY Work Phone: [facility] 04-16-2023 07:13-0400 Body weight 53.52 kg Jose Rangel INSTRUCTIONAL DESIGNER.ACCREDITED LEGAL SECRETARY Work Phone: [facility] 04-16-2023 07:13-0400 Heart rate 66 /min Jose Rangel INSTRUCTIONAL DESIGNER.ACCREDITED LEGAL SECRETARY Work Phone: [facility] 04-16-2023 07:13-0400 Respiratory rate 18 /min Jose Rangel INSTRUCTIONAL DESIGNER.ACCREDITED LEGAL SECRETARY Work Phone: [facility] 04-16-2023 07:13-0400 SaO2% (BldA) [Mass fraction] 99 % Jose Rangel INSTRUCTIONAL DESIGNER.ACCREDITED LEGAL SECRETARY Work Phone: [facility] 11-14-2022 08:33-0500 Body height 170.2 cm Maurice Hackett MD Work Phone: [facility] 11-14-2022 08:33-0500 Body temperature 96.01 [degF] Maurice Hackett MD Work Phone: [facility] 11-14-2022 08:33-0500 Body weight 51.71 kg Maurice Hackett MD Work Phone: [facility] 11-14-2022 08:33-0500 Diastolic blood pressure 62 mm[Hg] Maurice Hackett MD Work Phone: [facility] 11-14-2022 08:33-0500 Heart rate 64 /min Maurice Hackett MD Work Phone: [facility] 11-14-2022 08:33-0500 Respiratory rate 12 /min Maurice Hackett MD Work Phone: [facility] 11-14-2022 08:33-0500 SaO2% (BldA) [Mass fraction] 100 % Maurice Hackett MD Work Phone: [facility] 11-14-2022 08:33-0500 Systolic blood pressure 122 mm[Hg] Maurice Hackett MD Work Phone: [facility] 09-05-2022 17:40-0500 Body temperature 98.4 [degF] Ron García MD Work Phone: [facility] 09-05-2022 17:40-0500 Body weight 53.43 kg Ron García MD Work Phone: [facility] 09-05-2022 17:40-0500 Diastolic blood pressure 82 mm[Hg] Ron García MD Work Phone: [facility] 09-05-2022 17:40-0500 Heart rate 70 /min Ron García MD Work Phone: [facility] 09-05-2022 17:40-0500 Respiratory rate 18 /min Ron García MD Work Phone: [facility] 09-05-2022 17:40-0500 SaO2% (BldA) [Mass fraction] 99 % Ron García MD Work Phone: [facility] 09-05-2022 17:40-0500 Systolic blood pressure 138 mm[Hg] Ron García MD Work Phone: [facility] 08-19-2022 08:52-0500 Body temperature 97.59 [degF] Lori Patel APRN.PEN AND PENCIL REPAIRER Work Phone: [facility] 08-19-2022 08:52-0500 Body weight 52.34 kg Lori Patel APRN.PEN AND PENCIL REPAIRER Work Phone: [facility] 08-19-2022 08:52-0500 Diastolic blood pressure 84 mm[Hg] Lori Patel APRN.PEN AND PENCIL REPAIRER Work Phone: [facility] 08-19-2022 08:52-0500 Heart rate 74 /min Lori Patel APRN.PEN AND PENCIL REPAIRER Work Phone: [facility] 08-19-2022 08:52-0500 Respiratory rate 18 /min Lori Patel APRN.PEN AND PENCIL REPAIRER Work Phone: [facility] 08-19-2022 08:52-0500 SaO2% (BldA) [Mass fraction] 99 % Lori Patel APRN.PEN AND PENCIL REPAIRER Work Phone: [facility] 08-19-2022 08:52-0500 Systolic blood pressure 144 mm[Hg] Lori Patel APRN.PEN AND PENCIL REPAIRER Work Phone: [facility] 07-11-2022 11:25-0400 Body temperature 97.5 [degF] Justine Athy PA-C Work Phone: [facility] 07-11-2022 11:25-0400 Body weight 55.07 kg Justine Athy PA-C Work Phone: [facility] 07-11-2022 11:25-0400 Diastolic blood pressure 82 mm[Hg] Justine Athy PA-C Work Phone: [facility] 07-11-2022 11:25-0400 Heart rate 68 /min Justine Athy PA-C Work Phone: [facility] 07-11-2022 11:25-0400 Respiratory rate 18 /min Justine Athy PA-C Work Phone: [facility] 07-11-2022 11:25-0400 SaO2% (BldA) [Mass fraction] 100 % Justine Athy PA-C Work Phone: [facility] 07-11-2022 11:25-0400 Systolic blood pressure 132 mm[Hg] Justine Athy PA-C Work Phone: [facility] 07-07-2022 10:05-0400 Body temperature 97.81 [degF] Sofía Bogner PA-C Work Phone: [facility] 07-07-2022 10:05-0400 Body weight 53.98 kg Sofía Bogner PA-C Work Phone: [facility] 07-07-2022 10:05-0400 Diastolic blood pressure 68 mm[Hg] Sofía Bogner PA-C Work Phone: [facility] 07-07-2022 10:05-0400 Heart rate 66 /min Sofía Bogner PA-C Work Phone: [facility] 07-07-2022 10:05-0400 Respiratory rate 16 /min Sofía Bogner PA-C Work Phone: [facility] 07-07-2022 10:05-0400 SaO2% (BldA) [Mass fraction] 100 % Sofía Bogner PA-C Work Phone: [facility] 07-07-2022 10:05-0400 Systolic blood pressure 122 mm[Hg] Sofía Bogner PA-C Work Phone: [facility] 05-16-2022 08:47-0400 Body height 170.2 cm Maruice Hackett MD Work Phone: [facility] 05-16-2022 08:47-0400 Body temperature 96.8 [degF] Maurice Hackett MD Work Phone: [facility] 05-16-2022 08:47-0400 Body weight 53.52 kg Maurice Hackett MD Work Phone: [facility] 05-16-2022 08:47-0400 Diastolic blood pressure 70 mm[Hg] Maurice Hackett MD Work Phone: [facility] 05-16-2022 08:47-0400 Heart rate 62 /min Maurice Hackett MD Work Phone: [facility] 05-16-2022 08:47-0400 Respiratory rate 12 /min Maurice Hackett MD Work Phone: [facility] 05-16-2022 08:47-0400 SaO2% (BldA) [Mass fraction] 99 % Maurice Hackett MD Work Phone: [facility] 05-16-2022 08:47-0400 Systolic blood pressure 110 mm[Hg] Maurice Hackett MD Work Phone: [facility] 04-21-2022 15:33-0400 Body height 170.2 cm Jessy ROLDANC Work Phone: [facility] 04-21-2022 15:33-0400 Body weight 53.07 kg Jessy ROLDANC Work Phone: [facility] 02-07-2022 10:14-0400 Body temperature 97.59 [degF] Alice Gregory INSTRUCTIONAL DESIGNER.PEN AND PENCIL REPAIRER Work Phone: [facility] 02-07-2022 10:14-0400 Body weight 54.7 kg Alice Gregory INSTRUCTIONAL DESIGNER.PEN AND PENCIL REPAIRER Work Phone: [facility] 02-07-2022 10:14-0400 Diastolic blood pressure 70 mm[Hg] Alice Gregory INSTRUCTIONAL DESIGNER.PEN AND PENCIL REPAIRER Work Phone: [facility] 02-07-2022 10:14-0400 Heart rate 60 /min Alice Gregory INSTRUCTIONAL DESIGNER.PEN AND PENCIL REPAIRER Work Phone: [facility] 02-07-2022 10:14-0400 Respiratory rate 16 /min Alice Gregory INSTRUCTIONAL DESIGNER.PEN AND PENCIL REPAIRER Work Phone: [facility] 02-07-2022 10:14-0400 SaO2% (BldA) [Mass fraction] 100 % Alice Gregory INSTRUCTIONAL DESIGNER.PEN AND PENCIL REPAIRER Work Phone: [facility] 02-07-2022 10:14-0400 Systolic blood pressure 126 mm[Hg] Alice Gregory INSTRUCTIONAL DESIGNER.PEN AND PENCIL REPAIRER Work Phone: [facility] 08-03-2017 12:08-0500 BMI (Body Mass Index) 18.27 kg/m2 Handy Russell GROUNDS MAINTENANCE MANAGER [facility] Work Phone: 08-03-2017 12:08-0500 BP Diastolic 80 mm[Hg] Handy Russell GROUNDS MAINTENANCE MANAGER [facility] Work Phone: 08-03-2017 12:08-0500 BP Systolic 128 mm[Hg] Handy Russell GROUNDS MAINTENANCE MANAGER [facility] Work Phone: 08-03-2017 12:08-0500 Height 171.45 cm Handy Russell GROUNDS MAINTENANCE MANAGER [facility] Work Phone: 08-03-2017 12:08-0500 Pulse (Heart Rate) 66 /min Handy Russell GROUNDS MAINTENANCE MANAGER [facility] Work Phone: 08-03-2017 12:08-0500 Weight 53.71 kg Handy Russell GROUNDS MAINTENANCE MANAGER [facility] Work Phone: 06-03-2017 14:42-0400 Body Temperature 97.7 [degF] Handy Russell GROUNDS MAINTENANCE MANAGER [facility] Work Phone: 06-03-2017 14:42-0400 Height 171.45 cm Handy Russell GROUNDS MAINTENANCE MANAGER [facility] Work Phone: 06-03-2017 14:42-0400 Respiratory Rate 20 /min Handy Russell GROUNDS MAINTENANCE MANAGER [facility] Work Phone: 06-03-2017 14:42-0400 Weight 52.07 kg Handy Russell GROUNDS MAINTENANCE MANAGER [facility] Work Phone: 11-05-2016 14:41-0500 BSA (Body Surface Area) 1.63 m2 Handy Russell GROUNDS MAINTENANCE MANAGER [facility] Work Phone: 10-16-2015 14:27-0500 BP Diastolic 44 mm[Hg] Handy Russell GROUNDS MAINTENANCE MANAGER [facility] Work Phone: 10-16-2015 14:27-0500 BP Systolic 88 mm[Hg] Handy Russell GROUNDS MAINTENANCE MANAGER [facility] Work Phone: 10-16-2015 14:27-0500 Pulse (Heart Rate) 64 /min Handy Russell GROUNDS MAINTENANCE MANAGER [facility] Work Phone: Encounters Encounter Date Encounter Type Care Provider Facility Start: 11-17-2023 End: 11-17-2023 [facility] Facility:[facility] Start: 11-17-2023 End: 11-17-2023 ambulatory [facility] Facility:[facility] Start: 11-17-2023 End: 11-17-2023 Subsequent hospital visit by physician [facility] ([facility]) Work Phone: Cat Scan Procedures [...] Start: 08-03-2017 End: 08-04-2017 *BMP Handy Russell GROUNDS MAINTENANCE MANAGER Work Phone: Start: 08-03-2017 End: 08-03-2017 Ecg routine ecg w/least 12 lds w/i&r Handy Russell GROUNDS MAINTENANCE MANAGER Work Phone: Start: 08-03-2017 End: 08-04-2017 Magnesium [Mass/volume] in Serum or Plasma Handy Russell GROUNDS MAINTENANCE MANAGER Work Phone: Start: 06-09-2017 End: 06-11-2017 Bx/exc lymph node open superficial Carols Singh MD Work Phone: Start: 11-05-2016 End: [...] Brian Cooley MD Start: 08-30-2015 End: 08-30-2015 ART LIBRARIAN Brian Cooley MD Start: 08-30-2015 End: 08-30-2015 [...] PA-C Work Phone: Start: 05-16-2015 End: 05-16-2015 ART LIBRARIAN Tanesha Britt PA-C Work Phone: Start: 05-16-2015 [...] PA-C Work Phone: Start: 09-28-2013 End: 09-28-2013 ART LIBRARIAN Brian Cooley MD Start: 09-28-2013 End: 07-25-2014 Ecg routine ecg w/least 12 lds w/i&r Brian Cooley MD Start: 09-28-2013 End: 07-25-2014 Echocardiography Brian Cooley MD Start: 09-28-2013 End: 09-28-2013 Follow Up Appt 2 months Ele [facility] Start: 08-08-2013 End: 08-09-2013 *BMP Brian Cooley MD Start: 08-08-2013 End: 08-09-2013 *CBC with Differential Brian Cooley MD Start: 08-08-2013 End: 07-25-2014 ART LIBRARIAN Brian Cooley MD Start: 08-08-2013 End: 08-08-2013 [...] PA-C Work Phone: Start: 11-17-2012 End: 11-17-2012 ART LIBRARIAN Brian Cooley MD Start: 11-17-2012 End: 11-17-2012 [...] Start: 09-16-2012 End: 09-22-2012 Chest x-ray Brian Cooely MD Start: 09-16-2012 End: 09-16-2012 Ecg routine [...] Detail Author Start: 06-30-2032 Urine microalbumin profile [facility] Start: 09-24-2028 Urine microalbumin profile DTA P,TDAP,TD (2 - Td or Tdap) [facility] Start: 09-01-2026 Diabetes Screening Diabetes Screenin g [facility] Start: 07-06-2026 Diabetes Screening Diabetes Screenin g [facility] Start: 04-20-2026 DIABETES SCREEN DIABETES SCREEN [facility] Start: 08-25-2025 DIABETES SCREEN DIABETES SCREEN [facility] Start: 06-28-2025 DIABETES SCREEN DIABETES SCREEN [facility] Start: 07-09-2024 RSV Vaccine (1 - 1-d ose 60+ series) RSV Vaccine (1 - 1-dose 60+ series) [facility] Immunizations Immunization Date Immunization Notes Care Provider Niko ruby 07-09-2023 influenza (HD-IIV4) vaccine, age 65+ yr, high dose, quadrivalent, PF (FLUZONE HIGH-DOSE) Manisha Nichole APRN.NIKO Work Phone: [facility] 06-30-2022 tetanus and diphther ia toxoids, adsorbed, preservative free, for adult use (5 Lf of tetanus toxoid and 2 Lf of diphtheria toxoid) Sofía Bogner PA-C Work Phone: [facility] 05-21-2022 influenza (aIIV4) vaccine, age 65+ yr, quadrivalent, PF (FLUAD QUADRIVALENT) Sofía Bogner PA-C Work Phone: [facility] 05-21-2022 influenza, high dose seasonal, preservative-free Maggi Vetovitz PA-C Work Phone: [facility] 12-30-2021 COVID-19 original vaccine, age 12+ yr, monovalent (PFIZER-BIONTECH - AGUILAR TOP) Sofía Bogner PA-C Work Phone: [facility] 12-30-2021 COVID-19 vaccine, ag e 12+ yr (PFIZER-BIONTECH - PURPLE TOP) Manisha Nichole APRN.PEN AND PENCIL REPAIRER Work Phone: [facility] 11-25-2021 hepatitis A vaccine, adult dosage Maurice Hackett MD Work Phone: [facility] 05-29-2021 influenza (aIIV4) vaccine, age 65+ yr, quadrivalent, PF (FLUAD QUADRIVALENT) Maurice Hackett MD Work Phone: [facility] 05-15-2021 influenza virus vacc ine, unspecified formulation Maurice Hackett MD Work Phone: [facility] 05-26-2020 influenza, injectabl e, quadrivalent, preservative free Sofía Bogner PA-C Work Phone: [facility] 05-26-2020 zoster vaccine recombinant Sofía Bogner PA-C Work Phone: [facility] 05-23-2020 influenza, seasonal, injectable, preservative free Sofía Bogner PA-C Work Phone: [facility] 03-05-2020 hepatitis A vaccine, adult dosage Sofía Bogner PA-C Work Phone: [facility] 03-05-2020 zoster vaccine recombinant Sofía Bogner PA-C Work Phone: [facility] 07-26-2019 influenza, high dose seasonal, preservative-free Maurice Hackett MD Work Phone: [facility] Work Phone: 11-16-2018 influenza, seasonal, injectable, preservative free Sofía Bogner PA-C Work Phone: [facility] 11-16-2018 pneumococcal polysaccharide vaccine, 23 valent Sofía Bogner PA-C Work Phone: [facility] 12-10-2017 influenza, seasonal, injectable, preservative free Sofía Bogner PA-C Work Phone: [facility] 12-10-2017 pneumococcal polysaccharide vaccine, 23 valent Sofía Bogner PA-C Work Phone: [facility] 12-20-2015 pneumococcal conjuga te vaccine, 13 valent Maurice Hackett MD Work Phone: [facility] Work Phone: 07-12-2012 influenza virus vacc ine, unspecified formulation Maurice Hackett MD Work Phone: [facility] Work Phone: 01-08-2010 tetanus and diphther ia toxoids, adsorbed, preservative free, for adult use (2 Lf of tetanus toxoid and 2 Lf of diphtheria toxoid) Maurice Hackett MD Work Phone: [facility] Work Phone: 01-08-2010 zoster vaccine, live Maurice Hackett MD Work Phone: [facility] Work Phone: 06-12-2009 influenza virus vacc ine, unspecified formulation Maurice Hackett MD Work Phone: [facility] Work Phone: 05-04-2007 pneumococcal polysaccharide vaccine, 23 valent Maurice Hackett MD Work Phone: [facility] Work Phone: Payers Date Payer Category Payer Private Health Insurance [employer] [facility] [id number] 2021-Present [phone] [address] [place] [address] Indemnity [id number] 2021 Private Health Insurance [facility] SUPPLEMENT [id number] 2021-Present [phone] [address] [place] [address] Indemnity [id number] 2021 Private Health Insurance [id number] 2007 Medicare MEDICARE MEDICAR E A AND B [id number] 2007-Present [phone] [address] [address] [place] [address] Medicare [id number] 2007 Medicare MEDICARE MEDICAR E A AND B [id number] 2007-Present [phone] [place] [address] Medicare [id number] 2007 Medicare [id number] Medicare [id number] Social History Date Type Detail Facility Start: 04-21-2022 Tobacco smoking status NHIS Never smoked tobacco [facility] Start: 10-07-2021 End: 11-02-2023 Alcohol intake Current drinker of alcohol (finding) [facility] Start: 10-07-2021 End: 01-14-2023 Alcohol intake [facility] Start: 01-27-2020 End: 08-22-2022 History SDOH Alcohol Frequency 3 [facility] Start: 11-17-2019 End: 08-22-2022 History SDOH Alcohol Std Drinks 1 [facility] Start: 10-28-2012 History SDOH Alcohol Comment 1 glass per week [facility] Start: 11-17-2019 End: 12-09-2022 History SDOH Social Connections Phone 5 [facility] Start: 11-17-2019 End: 08-22-2022 History SDOH Transport Med 2 [facility] Start: 11-16-2019 Education 20 [facility] Start: 1940 Sex Assigned At Female [facility] Work Phone: Start: 10-14-2021 End: 08-04-2022 Exposure to SARS-CoV-2 (event) Not sure [facility] Start: 04-21-2022 Tobacco use and exposure Smokeless tobacco non-user [facility] Start: 05-15-2022 End: 08-22-2022 History SDOH Social Connections Get Together 4 [facility] Start: 08-22-2022 History SDOH Alcohol Std Drinks 0 [facility] Start: 08-22-2022 End: 01-14-2023 Social connection and isolation panel [facility] Do you belong to any clubs or organizations such as voodoo groups, unions, framakr or athletic groups, or school groups? Yes [facility] Are you now , , , , never or living with a partner? [facility] How often to you hav e a drink containing alcohol? Monthly or less [facility] How many standard dr inks containing alcohol do you have on a typical day? Patient does not drink [facility] How often do you hav e 6 or more drinks on 1 occasion? Never [facility] Do you feel stress - tense, restless, nervous, or anxious, or unable to sleep at night because your mind is troubled all the time - these days [OSQ] Only a little [facility] (I/We) worried wheth er (my/our) food would run out before (I/we) got money to buy more. Never true [facility] In the past 12 month s, was there a time when you were not able to pay the mortgage or rent on time? No [facility] Start: 02-01-2020 Gender identity Identifies as female gender (finding) [facility] Work Phone: Start: 02-01-2020 Sexual orientation Heterosexual (finding) [facility] Work Phone: Clinical Notes 12-20-2015 to 11-17-2023 Reef BeeKelly swartz RT(R) - 11/17/2023 2:20 PM ESTHalle Sampson APRN.NIKO - 11/02/2023 3:21 PM ESTTelephone Encounter - Grace Burgos RN - 11/02/2023 2:45 PM ESTPatient Instructions Note Date & Type Note Facility 11-17-2023 Note HNO ID: [id number] Author: KELLY DILLON RT(R) Service: ? Author Type: Motion Study Analyst Type: Progress Notes Filed: 11/17/2023 15:01 Note [...] PATIENT PRESENTS WITH AN IMPLANTABLE OR ATTACHED HOUSE DECORATOR: No RADIOLOGY DEPARTMENT: CT; Exam(s) Completed: Brain PERIPHERAL IV DATA: Not applicable SIGNED BY: RT Sara(Tessie) November 17, 2023 3:01 PM [facility] 11-17-2023 History of Present illness Narrative Radiology [...] PATIENT PRESENTS WITH AN IMPLANTABLE OR ATTACHED HOUSE DECORATOR: No RADIOLOGY DEPARTMENT: CT; Exam(s) Completed: Brain PERIPHERAL IV DATA: Not applicable SIGNED BY: RT Sara(R) November 17, 2023 3:01 PM documented in this encounter [facility] 11-02-2023 Note HNO ID: [id number] Author: HALLE SAMPSON APRN.PEN AND PENCIL REPAIRER Service: ? Author Type: Nurse Practitioner Type: [...] does see Dr. Blanca with neurology with [facility]. She is wondering if she is having [...] (A priority) Comment: No anticoagulation. (2013: CHADS2=0. [id number]-KCOt=3) On eliquis currently. She has no trouble [...] Prolapse (C priority) Protein-Calorie Malnutrition, Unspecified Severity ([facility]) - 01/14/2023 Mild Cognitive Disorder - 11/27/2020 Chronic Pain of Right Knee - 10/06/2018 Siadh (Syndrome of Inappropriate Adh Production) ([facility]) - 03/09/2018 Comment: Dx: 2012 she is on salt tablets and she has to limit her water content to 64 units a day. 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 She is done with the actonel for a life time. Neck Pain - 08/16/2015 Right-Sided Low Back Pain With Right-Sided Sciatica - 07/24/2015 Pain in (more content not included)... [facility] 11-02-2023 History of Present illness Narrative SUBJECTIVE [...] does see Dr. Blanca with neurology with [facility]. She is wondering if she is having [...] not. ACTIVE PROBLEM LIST Paroxysmal Atrial Fibrillation ([facility]) (A priority) Comment: No anticoagulation. (2013: CHADS2=0. [id number]=2) On eliquis currently. She has no trouble [...] Prolapse (C priority) Protein-Calorie Malnutrition, Unspecified Severity ([facility]) - 01/14/2023 Mild Cognitive Disorder - 11/27/2020 Chronic Pain of Right Knee - 10/06/2018 Siadh (Syndrome of Inappropriate Adh Production) ([facility]) - 03/09/2018 Comment: Dx: 2013 she is on salt tablets and she has to limit her water content to 64 units a day. 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 She is done with the actonel for a life time. Neck Pain - 08/16/2015 Right-Sided Low Back Pain With Right-Sided Sciatica - 07/24/2015 Pain in Joint, Lower Leg - 04/27/2014 Dizziness and Giddiness - 03/08/2013 Closed fracture of lumbar vertebra ([facility]) - 10/18/2012 Comment: Strong family history of [...] Halle Sampson APRN-NIKO documented in this encounter [facility] 11-02-2023 Miscellaneous Notes Pt calling in with [...] Spoke with Mala. documented in this encounter [facility] 10-30-2023 Note HNO ID: [id number] Author: CARLOS SINGH MD Service: ? Author Type: Physician Type: Progress Notes Filed: 10/30/2023 14:18 Note Text: HISTORY AND PHYSICAL Julianna Tucker 1940 REFERRING PHYSICIAN: Tomeka Ascencio, PEN AND PENCIL REPAIRER [address] [facility] [address] [facility] [address] CHIEF COMPLAINT: No chief complaint on file. [...] single focus overall grade 1 ER positive [place] positive HER-2 not amplified by fish. Resection [...] Duodenitis without mention of hemorrhage Dysphagia Dysphagia, unspecified(307.20) 08/01/2010 Esophageal reflux rare symptoms, had more [...] week (Patient laney (more content not included)... [facility] 10-30-2023 History of Present illness Narrative HISTORY AND PHYSICAL Julianna Alvarado Monique 1940 REFERRING PHYSICIAN: Tomeka Ascencio, PEN AND PENCIL REPAIRER [address] [facility] [address] [place] [phone] CHIEF COMPLAINT: No chief complaint on file. [...] single focus overall grade 1 ER positive [place] positive HER-2 not amplified by fish. Resection [...] Singh III, MD documented in this encounter [facility] 10-30-2023 Nurse Note REVIEW OF SYSTEMS: General: [...] Taryn Altamirano RN documented in this encounter [facility] 10-23-2023 Miscellaneous Notes [place] with Dr. Lopez's office called for [facility] Pt will be having colonoscopy there. Identified pt with name and date of . FAX: [phone]. Done. documented in this encounter [facility] 10-20-2023 Miscellaneous Notes Patient calling and requesting Gastroenterology referral information be faxed to Dr. Lopez's office. Faxed as requested to [phone] Yamilet Dotson RN documented in this encounter [facility] 10-12-2023 Note HNO ID: [id number] Author: MANISHA NICHOLE APRN.PEN AND PENCIL REPAIRER Service: ? Author Type: Nurse Practitioner Type: Progress Notes Filed: 10/13/2023 12:17 Note Text: CC: Patient presents with: Recheck: 3 month follow up HPI Julianna Tucker is a 83 year old female who presents today for routine follow up. Chronic dizziness with nausea and vomiting. Sees neurology at [facility]. Dr. Blanca, Used to see Dr. Jane at [facility] and would like to schedule again. [...] and is compliant with their regimen. Sees [facility] Last 3 Encounter BP Readings: [...] 1/2 a tablet (more content not included)... [facility] 09-01-2023 Note HNO ID: [id number] Author: Halle Sampson APRN.PEN AND PENCIL REPAIRER Service: ? Author Type: Nurse Practitioner Type: Progress Notes Filed: 09/01/2023 3:07 PM Note Text: SUBJECTIVE Julianna Tucker is a 83 year old female here today for a check up on her medical problems. Chief Complaint Patient presents with: ER F/U: [facility] on 08/29/2023 for vomiting /dehydration denies any further nausea/vomiting. Stills feels weak and unsteady on feet Has poor urinary output despite drinking greater than 64 oz of fluid HPI Julianna Tucker is a 83 year old female. She is here today for follow up from being seen in the ED at [facility]. Seen 08/29/2023 for vomiting and diagnosed with dehydration. ER notes reviewed in care everytwhere. Trying to keep hydrated. History of issues with her sodium levels and she knows if this gets off she gets issues with the nausea and vomiting. Tried reglan, zofran, and meclizine for the nausea. Given IV fluids in the ED. [place] better a little. Still some weakness. Sodium [...] (A priority) Comment: No anticoagulation. (2013: CHADS2=0. [id number]-ADFy=7) On eliquis currently. She has no trouble [...] Prolapse (C priority) Protein-Calorie Malnutrition, Unspecified Severity ([facility]) - 01/14/2023 Mild Cognitive Disorder - 11/27/2020 Chronic Pain of Right Knee - 10/06/2018 Siadh (Syndrome of Inappropriate Adh Production) ([facility]) - 03/09/2018 Comment: Dx: 2012 she is on salt tablets and she has to limit her water content to 64 units a day. 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 She is done with the actonel for a life time. Neck Pain - 08/16/2015 Right-Sided Low Back Pain With Right-Sided Sciatica - 07/24/2015 Pain in Joint, Lower Leg - 04/27/2014 Dizziness and Giddiness - 03/08/2013 Closed fracture of lumbar vertebra ([facility]) - 10/18/2012 Comment: Strong family history of osteoporosis. She is done with the actonel for a life time. Social History Tobacco Use Smoking status: Never Smokeless tobacco: Never Vaping Use Vaping Use: Never used Substance Use Topics Alcohol use: Yes Alcohol/ (more content not included)... [facility] 08-24-2023 Note HNO ID: [id number] Author: JATINDER WARREN MD Service: ? Author Type: Physician Type: Progress Notes Filed: 09/19/2023 16:11 Note Text: Jatinder Warren MD Department of Orthopaedics Orthopaedics [address] [facility] [address] Dept: [phone] Dept August 24, 2023 CHIEF COMPLAINT: Established [...] knee joint Informed Consent Consent Obtained: Verbal [place] Protocol A moment to CARE was completed. [...] R glenohumeral Informed Consent Consent Obtained: Verbal [place] Protocol A moment to CARE was completed. [...] - can caus (more content not included)... [facility] 08-17-2023 Note HNO ID: [id number] Author: Maggi Aldana PA-C Service: ? Author Type: Physician Electroless Plater Type: Progress Notes Filed: 08/17/2023 11:28 AM Note Text: Large Joint Arthro/Inj: R knee joint Informed Consent Consent Obtained: Verbal [place] Protocol A moment to CARE was completed. [...] equipment, possible retained foreign bodies accounted for. [facility] 08-17-2023 Note HNO ID: [id number] Author: Mari Conti Ma Service: ? Author [...] injection # 2 right knee LOT # [id number] EXP 08/09/2024 Taking Tylenol when needed for the pain. Mari Conti Ma [facility] 08-17-2023 History of Present illness Narrative Associated Order(s): Large Joint Arthro/Inj: R knee joint Post-Procedure Diagnose(s): Primary osteoarthritis of right knee; Chronic pain of right knee Large Joint Arthro/Inj: R knee joint Informed Consent Consent Obtained: Verbal [place] Protocol A moment to CARE was completed. [...] injection # 2 right knee LOT # [id number] EXP 08/09/2024 Taking Tylenol when needed for the pain. Mari Conti Ma documented in this encounter [facility] 08-10-2023 Note HNO ID: [id number] Author: Jennifer Hardin RN Service: ? Author Type: Registered Nurse Type: Progress Notes Filed: 08/10/2023 12:25 PM Note Text: Euflexxa Injection Right knee LOT # [id number] EXP 2024-06-22 Jennifer Haridn RN [facility] 08-10-2023 Note HNO ID: [id number] Author: Jatinder Warren MD Service: ? Author Type: Physician Type: Progress Notes Filed: 08/10/2023 12:25 PM Note Text: Jatinder Warren MD Department of Orthopaedics Orthopaedics [address] [place] [address] Dept: [phone] Dept August 10, 2023 CHIEF COMPLAINT: Follow [...] knee joint Informed Consent Consent Obtained: Verbal [place] Protocol A moment to CARE was completed. [...] daily. No current (more content not included)... [facility] 08-10-2023 Note HNO ID: [id number] Author: Analia Hernandez RT(R) Service: ? Author Type: Motion Study Analyst Type: Progress Notes Filed: 08/10/2023 9:19 AM [...] RT Tamir(R) August 10, 2023 8:59 AM [facility] 08-10-2023 History of Present illness Narrative Euflexxa Injection Right knee LOT # [id number] EXP 2024-06-22 Jennifer Hardin RN Associated Order(s): Large Joint Arthro/Inj: R knee joint Post-Procedure Diagnose(s): Chronic pain of right knee; Primary osteoarthritis of right knee Jatinder Warren MD Department of Orthopaedics Orthopaedics [address] [place] [address] Dept: [phone] Dept August 10, 2023 CHIEF COMPLAINT: Follow [...] knee joint Informed Consent Consent Obtained: Verbal [place] Protocol A moment to CARE was completed. [...] Jatinder Warren MD documented in this encounter [facility] 07-23-2023 Miscellaneous Notes Triage Protocol Recommended: ER [...] SYMPTOMS: no 10. :post menopausal Protocols used: Vkzqmupnd-EXSWW-DB documented in this encounter [facility] 07-09-2023 Note HNO ID: [id number] Author: Manisha Nichole APRN.PEN AND PENCIL REPAIRER Service: ? Author Type: Nurse Practitioner Type: [...] capsules with me (more content not included)... [facility] 07-09-2023 Instructions Manisha Nichole APRN.CNP - 07/09/2023 1:23 PM EDT [place]. documented in this encounter [facility] 07-09-2023 History of Present illness Narrative CC: [...] fibrillation (HCC) Chondrocalcinosis, cause unspecified, involving lower leg(142.36) 04/25/2008 CPPD right leg (on xray) - has never had an acute pseudogout attack Chronic fatigue Compression fracture of L1 lumbar vertebra (HCC) Concussion Depression Diverticulosis of colon (without mention of hemorrhage) Diverticulosis of large intestine Duodenitis without mention of hemorrhage Dysphagia Dysphagia, unspecified(667.20) 08/01/2010 Esophageal reflux rare symptoms, had more [...] - Instructed patient to contact office or txmtd-wo-bsrl after-hours promptly should condition worsen or any new symptoms appear. - [facility] and after hours crisis line 5. Chronic [...] Manisha Nichole APRN.CNP documented in this encounter [facility] 06-23-2023 Note Patient Outreach (IN TMMN) JULIANNA TUCKER ([id number]) 1940 F NFR Date Time Provider Department [...] management [Z79.899] Order(s):MAGNESIUM BLD [SQMG1] Order #: [id number] FUTURE Prescriptions as of 06/26/2023 - acetaminophen [...] Asymptomatic Postmenopausal Status (Age-Related* 10/28/2012 Osteoarth NOS-L/Leg [UTT7685] Palpitations [R00.2] 02/23/2009 Osteoporosis [M81.0] 07/04/2009 03/13/2012 [...] Protein-calorie malnutrition, unspecified sever*01/14/2023 Encounter Status:Closed by [employer] on 06/26/23 [facility] 05-08-2023 Miscellaneous Notes Pt notified of results via [employer]. Cris Richards Ma Please let patient know that I reviewed all of her lab workups and the only thing I want to repeat at the moment is to recheck her sodium level next week. Order for BMP placed. Thank you Manisha Nichole APRN.CNP documented in this encounter [facility] 05-08-2023 Miscellaneous Notes BEHAVIORAL HEALTH SOCIAL WORK CONSULT NOTE Service Date: May 08, 2023 Patient was identified by name and Patient: Julianna Tucker [address] [place] [address] (home) [phone] (cell) PCP: Maurice Hackett MD [address] [place] [address] Patient identified for [facility] from: PCP Reason for referral: Resources Behavioral Health Resources: Psychology - talk therapy [facility] encounter type: Telephone Encounter Assessment: Referral made to engage patient experiencing anxiety . [facility] reviewed patient's chart and insurance to identify resources. Patient stated they are experiencing anxiety. Patient denies suicidal or homicidal ideation. Patient identified she is seeking therapy sooner than [facility]. [facility] will send resources to patient through [facility] per her request. Medications: Current Outpatient Medications [...] Reason for external referral: Wait times at [facility] too long Final Disposition: Resources given Patient Discharged?: Yes Patient reported that caregiver was able to meet their needs today?: Yes Internal Referrals : No Reason for External Referrals : Wait is too long Intervention: Supportive Listening Provided referral information Resources Provided: [facility] Time Spent: 15 minutes JIGNESH Kuo-S documented in this encounter [facility] 05-08-2023 Note HNO ID: [id number] Author: Manisha Nichole APRN.CNP Service: ? Author [...] palpitations and saw her cardiology group. Sees [facility] for history of A-fib. Had a [...] 07/04/2009 osteopenia 06/15 (more content not included)... [facility] 05-08-2023 History of Present illness Narrative CC: [...] palpitations and saw her cardiology group. Sees [facility] for history of A-fib. Had a [...] weeks. - Reviewed concept of neurochemical imbalance [facility] depression/anxiety, treatment options and benefits of counseling in combination with medication. Also reviewed benefits of sleep hygeine, diet and exercise - Instructed patient to contact office or obroi-fk-olyi after-hours promptly should condition worsen or any new symptoms appear. - [facility] and after hours crisis line 2. Nausea [...] Manisha Nichole APRN.CNP documented in this encounter [facility] 04-21-2023 Note Patient Outreach (IN TMMN) JULIANNA TUCKER ([id number]) 1940 F NFR Date Time Provider Department [...] management [Z79.899] Order(s):MAGNESIUM BLD [SQMG1] Order #: [id number] FUTURE Prescriptions as of 04/24/2023 - vibegron [...] Asymptomatic Postmenopausal Status (Age-Related* 10/28/2012 Osteoarth NOS-L/Leg [TQN3489] Palpitations [R00.2] 02/23/2009 Osteoporosis [M81.0] 07/04/2009 03/13/2012 [...] Encounter Status:Closed by PARKER HORN on 04/24/23 [facility] 04-21-2023 Miscellaneous Notes Patient calling in, given below results, verbalized understanding. Faith Hauser LPN Called and left a voicemail for the Patient to call back and ask for a nurse to receive the providers message. Josie Blankenship RN Please let patient know stool testing is negative. XR shows some stool burden but no obstruction documented in this encounter [facility] 04-20-2023 Note HNO ID: [id number] Author: Jose Rangel APRN.ACCREDITED LEGAL SECRETARY Service: ? Author Type: Nurse Specialist Type: Progress Notes Filed: 04/20/2023 4:41 PM Note Text: canceled [facility] 04-20-2023 History of Present illness Narrative canceled documented in this encounter [facility] 04-17-2023 Miscellaneous Notes Pt called and is [...] labs on Thursday. documented in this encounter [facility] 04-16-2023 Note HNO ID: [id number] Author: Diana Meadows RT(R) Service: Radiology Author [...] RT Patrick(R) April 16, 2023 8:48 AM [facility] 04-16-2023 Note HNO ID: [id number] Author: Julio Downey APRN.PEN AND PENCIL REPAIRER Service: ? Author Type: Nurse Practitioner Type: [...] meal. anastrozole (ARIMI (more content not included)... [facility] 04-16-2023 History of Present illness Narrative Chief [...] - XR ABDOMEN 1V SUPINE Julio Downey APRN.PEN AND PENCIL REPAIRER documented in this encounter [facility] 04-15-2023 Miscellaneous Notes See previous phone encounter [...] stool sample tested. documented in this encounter [facility] 04-08-2023 Note HNO ID: [id number] Author: Rishi Romero APRN.NIKO Service: ? Author Type: Nurse Practitioner Type: Progress Notes Filed: 04/08/2023 4:40 PM Note Text: Patient triaged at [facility]. Blacked out helped to bed. Still feeling woosy I will refer to ER, to drive pov to [facility] Er. [facility] 04-08-2023 History of Present illness Narrative Patient triaged at [facility]. Blacked out helped to bed. Still feeling woosy I will refer to ER, to drive pov to [facility] Er. documented in this encounter [facility] 04-08-2023 Miscellaneous Notes noted Patient calls to [...] pain or bleeding. Protocols used: Dizziness - Dnnqtmnarwvjkdr-JAIXT-XP documented in this encounter [facility] 01-14-2023 Note HNO ID: [id number] Author: Sol Harvey Service: ? Author Type: [...] TRANSORAL DIAGNOSTIC 05/15 (more content not included)... [facility] 01-14-2023 Note HNO ID: [id number] Author: Caroline Day LPN Service: ? Author [...] Fungus, Pain, Ingrown Toenail Caroline Day LPN [facility] 01-14-2023 History of Present illness Narrative Initial [...] stocking Sol Harvey DPM Podiatry [address] [facility] [address] Dept: [phone] Dept AMB ROOMING INTAKE FLOWSHEET DATA Pain Pain Level: 7 Pain Location: Toe Description: Aching, Sore Duration Units: Years Frequency: Continuous Intervention/Comfort measure: Reposition, Relaxation Patient presents with: Left Foot - New, Nail Fungus, Pain, Ingrown Toenail Right Foot - New, Nail Fungus, Pain, Ingrown Toenail Caroline Day LPN documented in this encounter [facility] 11-14-2022 History of Present illness Narrative Reason [...] does this and needs to start again. [facility]: Sees nephrology for this, next appointment [...] Atrial Fibrillation - sees Dr. Cooley at [facility], last saw a few months ago. Denies [...] Maurice Hackett MD documented in this encounter [facility] 09-06-2022 Miscellaneous Notes Patient was able to have the Molnupiravir prescription transferred to [facility] and started the medicine last night. See pharmacy's note to change rx. documented in this encounter [facility] 09-05-2022 Instructions Ron García MD - 09/05/2022 [...] healthcare provider to share your information with [employer], then your healthcare provider will report your use of molnupiravir during to [employer]. by calling or [email or web address]. For individuals who are sexually active with [...] molnupiravir for the treatment of adults with nqmg-rv-eraugrhd coronavirus disease 2019 (COVID-19) with positive results [...] virus. COVID-19 illnesses have ranged from very qskh-nj-tywysx, including illness resulting in . While information [...] is an investigational medicine used to treat qjye-ue-uyolnrla COVID-19 in adults: with positive results of [...] serious illnesses Are taking any medicines (prescription, jkot-ipb-jaasfym, vitamins, or herbal products). How do I [...] treat people with COVID-19. Go to https://www.fda.gov/emergency-prep jfcpqfch-prc-uvxskcxv/mcm-legalreg xaiflss-bet-pzhrtk-framework/emerg jqqa-pij-kabrlzkabmspj for more information. It is your choice [...] to FDA MedWatch at www.fda.gov/medwatch or call 2-032-MJN-1056 ( ). How should I store molnupiravir? Store molnupiravir capsules at room temperature between 68 F to 77 F (20 C to 25 C). Keep molnupiravir and all medicines out of the reach of children and pets. How can I learn more about COVID-19? Ask your healthcare provider. Visit www.cdc.gov/COVID19 Contact your local or state public health department. Call [employer] at (toll free in the [place] Visit www.[employer] What Is an Emergency Use Authorization (EUA)? The [place] FDA has made molnupiravir available under an emergency access mechanism called an Emergency Use Authorization (EUA) The EUA is supported by a [place] of Health and Human Service (HHS) declaration that circumstances exist to justify emergency use of drugs and biological products during the COVID-19 pandemic. Molnupiravir for the treatment of lidk-hr-moyhtrdb COVID-19 in adults with positive results of [...] used under the EUA). For patent information: www.[employer]/research/patent Copyright 2020 [employer] [place], [place] and its affiliates. All rights reserved. [id number] Issued: 09/05/2021 documented in this encounter [facility] 09-05-2022 History of Present illness Narrative Patient [...] increased WOB Molnupiravir Eligibility and Patient Discussion [facility] Formulary Restriction Criteria: Adult outpatients 18 years [...] Ron García MD documented in this encounter [facility] 09-05-2022 Miscellaneous Notes Pt called in and reports she couldn't get connected to the [facility]. Let Pt know to come into [facility] and bring her Covid test as they are open until 8 pm. They can prescribe the antivirals to her and nurses' association counselor her on which one to take [...] care on line. documented in this encounter [facility] 08-28-2022 Miscellaneous Notes Pt called and is notified of providers results and instructions. Pt voices understanding. Pt states she had wanted her urology order to go to the [facility] Urologist with [facility]. I told her I didn't know of any with [facility], and she said she had thought she had read something about one. I told her I knew of Dr Ahmadi and Dr Prince that work with [facility] and she said no to both those [...] Manisha Nichole APRN.NIKO documented in this encounter [facility] 08-20-2022 Miscellaneous Notes Left message for patient with results and recommendations.Laly Mohr LPN Please notify patient that urine culture showed mixture of bacteria which suggests possible contamination upon collection. Advise her to finish the antibiotic if it is helping her symptoms but if not, then she will need to return to provide another specimen. Thank you. Alice Jenkins APRN.NIKO documented in this encounter [facility] 08-19-2022 History of Present illness Narrative CC: [...] mouth twice daily for 5 days. One Lorton (Pure Encapsulation) -- fish oil Take 2 [...] Lori Patel APRN.NIKO documented in this encounter [facility] 08-11-2022 History of Present illness Narrative Associated Order(s): Large Joint Arthro/Inj: R knee joint Post-Procedure Diagnose(s): Primary osteoarthritis of right knee Large Joint Arthro/Inj: R knee joint Informed Consent Consent Obtained: Verbal [place] Protocol A moment to CARE was completed. [...] # 3 into right knee. LOT # [id number] EXP 06/27/2023 Dipika Merchant Ma Patient presents with: Right Knee - Injections, Established Patient AMB ROOMING INTAKE FLOWSHEET DATA Risk Screening Do you have concerns about personal safety or safety in the home?: No Pt states no pain in right knee at this time. documented in this encounter [facility] 08-04-2022 History of Present illness Narrative Associated Order(s): Large Joint Arthro/Inj: R knee joint Post-Procedure Diagnose(s): Primary osteoarthritis of right knee Large Joint Arthro/Inj: R knee joint Informed Consent Consent Obtained: Verbal [place] Protocol A moment to CARE was completed. [...] Patient denies any pain today. LOT # [id number] EXP 06/27/2023 Mari Conti Ma documented in this encounter [facility] 07-28-2022 History of Present illness Narrative Associated Order(s): Large Joint Arthro/Inj: R knee joint Post-Procedure Diagnose(s): Primary osteoarthritis of right knee; Chronic pain of right knee Maggi Aldana PA-C Department of Orthopaedics Orthopaedics [address] [place] [address] Dept: [phone] Dept July 28, 2022 CHIEF COMPLAINT: Established [...] knee joint Informed Consent Consent Obtained: Verbal [place] Protocol A moment to CARE was completed. [...] 1,000 Units by mouth once daily. One Lorton (Pure Encapsulation) -- fish oil Take 2 capsules by mouth daily with food. No current facility-administered medications for this visit. Allergies: Adhesive Tape (Rosins), Cantaloupe, Erythromycin, Grass Pollen, Mold, Penicillins, Pollen, Prevacid [Lansoprazole], and Sulfa (Sulfonamide Antibiotics) This note was partially generated using [employer]! voice recognition system, and there may be some incorrect words, spellings, and punctuation that were not noted in checking the note before saving. Maggi Aldana PA-C Euflexxa injection # 1 into right knee LOT # [id number] EXP 06/27/2023 Dipika Merchant Ma Patient presents [...] Started water PT. documented in this encounter [facility] 07-14-2022 Miscellaneous Notes Noted, thank you. Patient [...] for gel injection? documented in this encounter [facility] 07-12-2022 Miscellaneous Notes Patient given results and [...] discussed at visit. documented in this encounter [facility] 07-11-2022 History of Present illness Narrative This note was created using Blacksumacriter. Subjective Julianna Tucker is a 82 year [...] - can cause loose stools 0 One Lorton (Pure Encapsulation) -- fish oil Take 2 [...] Justine Irizarry PA-C documented in this encounter [facility] 07-07-2022 History of Present illness Narrative 07/07/2022 [...] of breast in female, estrogen receptor positive ([facility]) 09/08/2017 Mitral valve prolapse Neoplasm of uncertain [...] night - can cause loose stools One Lorton (Pure Encapsulation) -- fish oil Take 2 [...] Sofía Baig PA-C documented in this encounter [facility] 06-09-2022 History of Present illness Narrative Maggi Aldana PA-C Department of Orthopaedics Orthopaedics [address] [facility] [address] Dept: [phone] Dept June 09, 2022 CHIEF COMPLAINT: Established [...] Imaging: IMPRESSION: Progressive lateral joint compartment osteoarthrosis Restaurant Mgr: [facility] Transcribe Date/Time: Apr 21 2022 3:52P Dictated by : BRIANDA OROPEZA MD This examination was interpreted and the report reviewed and electronically signed by: BRIANDA OROPEZA MD on Apr 21 2022 3:52PM EST Results-Findings * * *Final Report* * * DATE OF EXAM: Apr 21 2022 3:26PM ZACH [id number] - XR KNEE 4V AP/PA BOTH+LAT/OSCAR RT / PROCEDURE REASON: [id number] * * * * Physician Interpretation * [...] 1,000 Units by mouth once daily. One Lorton (Pure Encapsulation) -- fish oil Take 2 [...] anxiety) This note was partially generated using SaveFans! voice recognition system, and there may be [...] has been ongoing. Patient was seen in [place] 7 weeks ago and given an injection; she was also given a brace to wear. Patient has been doing some physical therapy but the last week has not been able to go d/t intense pain. Last xray 04/21/22. documented in this encounter [facility] 05-16-2022 History of Present illness Narrative Reason [...] Atrial Fibrillation - sees Dr. Cooley at [facility], last saw a few months ago. Denies [...] night Stress, blood sugar, thyroid/hormones/adrenals/sleep/en ergy/toxins/muscles/constipation/a sta [facility] Lorton (Pure Encapsulation) -- fish oil metoprolol succinate [...] Maurice Hackett MD documented in this encounter [facility] 04-21-2022 History of Present illness Narrative Associated [...] knee joint Informed Consent Consent Obtained: Verbal [place] Protocol A moment to CARE was completed. [...] Jessy Pina PA-C documented in this encounter [facility] 04-21-2022 Miscellaneous Notes Radiology Service Progress Note [...] 2022 3:27 PM documented in this encounter [facility] 02-07-2022 History of Present illness Narrative Subjective The history is provided by the patient. No erp specialist was used. HPI Julianna Tucker is a [...] have confirmed and edited as necessary, the [facility] Review of Systems Constitutional: Negative for [...] in 24-48 hours with results, available on [facility] - ASYMPTOMATIC ELECTIVE COVID-19 Diagnosis and treatment plan were discussed and questions were answered to the patient's satisfaction. Pt acknowledged understanding of concepts and follow up plan. Specific signs and symptoms that would indicate the need for higher level of care were discussed in detail warranting prompt ER evaluation. Alice Jenkins APRN.NIKO documented in this encounter [facility] 02-03-2022 Miscellaneous Notes Sure, I hope she [...] to your local emergency facility: Notify the stereoplotter operator that you are seeking care for [...] be around others. documented in this encounter [facility] 01-20-2022 Miscellaneous Notes Patient notified of results. Gauri Sanchez LPN Please let patient know that I have reviewed Recent lab work and it is within acceptable ranges and similar to previous results. Thank you Manisha Nichole APRN.NIKO documented in this encounter [facility] 01-06-2022 Miscellaneous Notes Patient has been identified [...] Gauri Sanchez LPN documented in this encounter [facility] 01-01-2022 Miscellaneous Notes No results yet received. [...] she had labs done in November at [facility]. Please advise on labs. Please review and advise, Yuli Delgado RN documented in this encounter [facility] 12-30-2021 Miscellaneous Notes Pt notified via So[employer]. Called and left a voicemail for the [...] having daily. Requesting [facility] pharmacy in [place]. Patient also asking if she can have a referral for GI consult due to stomach issues? She would like to see Dr. Sharma possibly since she has done a colonoscopy on her in the past. Please call patient with provider's response. Thank you. documented in this encounter [facility] documented as of this encounter (statuses as of 11/14/2022) [facility] History of Past [facility] Narrative* Problem Noted [...] of this encounter (statuses as of 01/15/2023) [facility] Narrative* Problem Noted [...] of this encounter (statuses as of 04/08/2023) [facility] Narrative* Problem Noted [...] of this encounter (statuses as of 04/09/2023) [facility] N[facility]ative* Problem Noted [...] of this encounter (statuses as of 04/16/2023) [facility] N[facility]ative* Problem Noted [...] of this encounter (statuses as of 04/16/2023) [facility]* Problem Noted [...] of this encounter (statuses as of 04/21/2023) [facility]* Problem Noted [...] of this encounter (statuses as of 04/21/2023) [facility]* Problem Noted [...] of this encounter (statuses as of 04/24/2023) [facility]* Problem Noted [...] of this encounter (statuses as of 05/05/2023) [facility]* Problem Noted [...] of this encounter (statuses as of 05/08/2023) [facility]* Problem Noted [...] of this encounter (statuses as of 05/08/2023) [facility]* Problem Noted [...] of this encounter (statuses as of 07/10/2023) [facility]* Problem Noted [...] of this encounter (statuses as of 07/23/2023) [facility]* Problem Noted [...] of this encounter (statuses as of 07/29/2023) [facility]* Problem Noted [...] of this encounter (statuses as of 08/10/2023) [facility]* Problem Noted [...] of this encounter (statuses as of 08/17/2023) [facility]* Problem Noted [...] of this encounter (statuses as of 10/21/2023) [facility]* Problem Noted [...] of this encounter (statuses as of 10/23/2023) [facility]* Problem Noted [...] of this encounter (statuses as of 10/30/2023) [facility]* Problem Noted [...] of this encounter (statuses as of 11/02/2023) [facility]* Problem Noted [...] of this encounter (statuses as of 11/02/2023) [facility]* Problem Noted [...] of this encounter (statuses as of 11/18/2023) [facility]* Problem Noted [...] of this encounter (statuses as of 12/30/2021) [facility]* Problem Noted [...] of this encounter (statuses as of 01/01/2022) [facility]* Problem Noted [...] of this encounter (statuses as of 01/06/2022) [facility]* Problem Noted [...] of this encounter (statuses as of 01/20/2022) [facility]* Problem Noted [...] of this encounter (statuses as of 02/07/2022) [facility]* Problem Noted [...] of this encounter (statuses as of 04/17/2022) [facility]* Problem Noted [...] of this encounter (statuses as of 04/21/2022) [facility]* Problem Noted [...] of this encounter (statuses as of 04/22/2022) [facility]* Problem Noted [...] of this encounter (statuses as of 05/02/2022) [facility]* Problem Noted [...] of this encounter (statuses as of 05/16/2022) [facility]* Problem Noted [...] of this encounter (statuses as of 06/09/2022) [facility]* Problem Noted [...] of this encounter (statuses as of 07/07/2022) [place] [address]-07-2016 History of Past illness Narrative* Problem Noted [...] of this encounter (statuses as of 07/11/2022) [facility]* Problem Noted [...] of this encounter (statuses as of 07/12/2022) [facility]* Problem Noted [...] of this encounter (statuses as of 07/14/2022) [facility]* Problem Noted [...] of this encounter (statuses as of 07/29/2022) [facility]* Problem Noted [...] of this encounter (statuses as of 08/04/2022) [facility]* Problem Noted [...] of this encounter (statuses as of 08/11/2022) [facility]* Problem Noted [...] of this encounter (statuses as of 08/19/2022) [facility]* Problem Noted [...] of this encounter (statuses as of 08/20/2022) [facility]* Problem Noted [...] of this encounter (statuses as of 08/28/2022) [facility]* Problem Noted [...] of this encounter (statuses as of 09/07/2022) [facility]* Problem Noted [...] of this encounter (statuses as of 09/07/2022) [facility]* Problem Noted [...] of this encounter (statuses as of 09/08/2022) [facility]* Problem Noted [...] of this encounter (statuses as of 10/30/2022) [facility] Diagnosis Nausea Nausea alone Dizziness Dizziness and giddiness [facility] Exposure to COVID-19 virus- Primary [facility] Diagnosis Pain- Primary Generalized pain [facility] Diagnosis Primary osteoarthritis of right knee- Primary Primary localized osteoarthrosis, lower leg Acquired genu valgum of right knee [facility] Diagnosis Pain Generalized pain [facility]* Diagnosis Medication management Encounter for long-term (current) use of other medications [facility]* Diagnosis 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 Paroxysmal atrial fibrillation (HCC) Atrial fibrillation Dizziness and giddiness Chronic fatigue disorder Chronic fatigue syndrome Mild cognitive disorder Unspecified persistent mental disorders due to conditions classified elsewhere [facility] Diagnosis Primary osteoarthritis of right knee- Primary Primary localized osteoarthrosis, lower leg Chronic pain of right knee [facility] Diagnosis Visit for suture removal- Primary Encounter for removal of sutures Laceration of right index finger without damage to nail, foreign body presence unspecified, initial encounter [facility] Diagnosis Right leg swelling- Primary Swelling of limb [facility] Diagnosis Primary osteoarthritis of right knee- Primary Primary localized osteoarthrosis, lower leg Chronic pain of right knee [facility] Primary osteoarthritis of right knee- Primary Primary localized osteoarthrosis, lower leg [facility] Diagnosis Urinary frequency- Primary [facility] Diagnosis Abnormal thyroid blood test- Primary Nonspecific abnormal results of thyroid function study Other fatigue [facility] Diagnosis Acute COVID-19- Primary [facility] Diagnosis Acute COVID-19 [facility] Diagnosis Urinary incontinence, unspecified type- Primary [...] or unspecified remission [facility] Diagnosis Onychomycosis- Primary Dermatophytosis of nail Diminished pulses in lower extremity Other symptoms involving cardiovascular system Protein-calorie malnutrition, unspecified severity ([facility]) [facility] Diagnosis Black-out (not amnesia)- Primary Syncope and collapse [facility] Diagnosis Diarrhea, unspecified type- Primary [facility] Diagnosis APPOINTMENT CANCELLED- Primary [facility] Diagnosis Medication management Encounter for long-term (current) use of other medications [facility] Diagnosis Hyponatremia- Primary Hyposmolality and/or hyponatremia [facility] Diagnosis Anxiety and depression- Primary Dysthymic disorder Nausea Nausea alone Dizziness Dizziness and giddiness Diarrhea, unspecified type Paroxysmal atrial fibrillation (HCC) Atrial fibrillation Hyponatremia Hyposmolality and/or hyponatremia Chronic fatigue disorder Chronic fatigue syndrome Gastroesophageal reflux disease, unspecified whether esophagitis present [facility] Diagnosis Diarrhea, unspecified type- Primary SIADH (syndrome of inappropriate ADH production) ([facility]) Other disorders of neurohypophysis Hyponatremia Hyposmolality and/or hyponatremia Anxiety Anxiety state, unspecified Chronic pain of right knee Need for influenza vaccination Need for prophylactic vaccination and inoculation against influenza [facility] Diagnosis Right knee pain, unspecified chronicity- Primary [facility] Diagnosis Primary osteoarthritis of right knee- Primary Primary localized osteoarthrosis, lower leg Chronic pain of right knee [facility] Diagnosis Chronic pain of right knee- Primary Primary osteoarthritis of right knee Primary localized osteoarthrosis, lower leg [facility] Diagnosis Mastodynia- Primary Costochondritis Tietze's disease [facility] Diagnosis TIA (transient ischemic attack)- Primary Unspecified transient cerebral ischemia Aphasia Ocular migraine Other forms of migraine, without mention of intractable migraine without mention of status migrainosus Yeast dermatitis Candidiasis of skin and nails [facility] Diagnosis TIA (transient ischemic attack) Unspecified transient cerebral ischemia Aphasia Ocular migraine Other forms of migraine, without mention of intractable migraine without mention of status migrainosus documented in this encounter [facility] for referral (narrative)* Diagnostic Procedure Only (Routine) - Authorized Specialty Diagnoses / Procedures Referred By Phong antonio Referred To Contact XR IMAGING Diagnoses Pain Procedures XR KNEE GENERAL 4V AP BOTH/PA BOTH/LAT/MERC RIGHT RADIOLOGIC EXAM KNEE COMPLETE 4/MORE VIEWS Jessy Pina PA-C [address] [place] [address] Xr Imaging Referral ID Status Reason Start Date Expiration Date Visits Requested Visits Authorized [id number] Authorized Auto-Generat ed Referral 04/17/2022 05/17/2023 1 1 [facility] for referral (narrative)* Diagnostic Procedure Only (Routine) - Closed Specialty Diagnoses / Procedures Referred By Contac t Referred To Contact XR IMAGING Diagnoses Pain Procedures XR KNEE GENERAL 4V AP BOTH/PA BOTH/LAT/MERC RIGHT RADIOLOGIC EXAM KNEE COMPLETE 4/MORE VIEWS Jessy Pina PA-C [address] [place] [id number] Xr Imaging Referral ID Status Reason Start Date Expiration Date V isits Requested Visits Authorized [id number] Closed Auto-Generate d Referral 04/17/2022 05/17/2023 1 1 [facility] for referral (narrative)* Outpatient Procedure (Urgent) - Closed Specialty Diagnoses / Procedures Referred By Contac t Referred To Contact [facility] Diagnoses Right leg swelling Procedures US LEG VEIN DVT UNL VAS LAB DUP-SCAN XTR VEINS UNILATERAL/LIMITED STUDY Justine Irizarry PA-C [address] [place] [address] [facility] [place] [address] [place] [address] Referral ID Status Reason Start Date Expiration Date V isits Requested Visits Authorized [id number] Closed Auto-Generate d Referral 07/11/2022 07/11/2023 1 1 [facility] for referral (narrative)* Outpatient Procedure (Routine) - Authorized Specialty Diagnoses / Procedures Referred By Contac t Referred To Contact [facility] Diagnoses Onychomycosis Diminished pulses in lower extremity Procedures PVR ANK PRESS NANCY VAS LAB NON-INVAS PHYSIOLOGIC STD EXTREMITY ART 2 LEVEL Sol [address] [place] [id number] [facility] [place] [place] [address] Referral ID Status Reason Start Date Expiration Date Visits Requested Visits Authorized [id number] Authorized Auto-Generat ed Referral 01/14/2023 01/14/2024 1 1 [facility] for referral (narrative)* Diagnostic Procedure Only (Routine) - Closed Specialty Diagnoses / Procedures Referred By Contac t Referred To Contact XR IMAGING Diagnoses Diarrhea, unspecified type Procedures XR ABDOMEN 1V SUPINE RADIOLOGIC EXAM ABDOMEN 1 VIEW Julio Downey APRN.CNP [address] [place] [address] Xr Imaging Referral ID Status Reason Start Date Expiration Date V isits Requested Visits Authorized [id number] Closed Auto-Generate d Referral 04/16/2023 05/15/2024 1 1 [facility] for referral (narrative)* Diagnostic Procedure Only (Routine) - Pending Review Specialty Diagnoses / Procedures [facility]erred To Contact XR IMAGING Diagnoses Right knee pain, unspecified chronicity Procedures XR KNEE GENERAL 4V AP BOTH/PA BOTH/LAT/MERC RIGHT RADIOLOGIC EXAM KNEE COMPLETE 4/MORE VIEWS Jatinder Warren MD [address] [place] [address] [place] [address] Referral ID Status Reason Start Date Expiration Date Visits Requested Visits Authorized [id number] Pending Review Auto-Generat ed Referral 3 08/27/2024 1 1 [facility] for referral (narrative)* Outpatient Procedure (Routine) - Authorized Specialty Diagnoses / Procedures [facility] Referred To [facility] Diagnoses TIA (transient ischemic attack) Aphasia Ocular migraine Procedures US CAROTID ARTERIES NANCY VAS LAB DUPLEX SCAN EXTRACRANIAL ART COMPL BI STUDY Halle Sampson APRN.PEN AND PENCIL REPAIRER [address] [place] [id number] [facility] [place] [address] [place] [address] Referral ID Status Reason Start Date Expiration Date Visits Requested Visits Authorized [id number] Authorized Auto-Generat ed Referral 11/02/2023 11/01/2024 1 1 * MRI/CT (Routine) - Authorized Specialty Diagnoses / Procedures [facility] [facility] Ref[facility] To Contact CT IMAGING Diagnoses TIA (transient ischemic attack) Aphasia Ocular migraine Procedures CT BRAIN WO IVCON CT HEAD/BRAIN W/O CONTRAST MATERIAL Halle Sampson APRN.CNP [address] [place] [address] [place] [address] Referral ID Status Reason Start Date Expiration Date Visits Requested Visits Authorized [id number] Authorized Auto-Generat ed Referral 11/02/2023 12/01/2024 1 1 [facility] Diagnostic Procedure Only (Routine) - Closed Specialty Diagnoses / Procedures Referred By Contac t Referred To Contact XR IMAGING Diagnoses Pain Procedures XR KNEE GENERAL 4V AP BOTH/PA BOTH/LAT/MERC RIGHT RADIOLOGIC EXAM KNEE COMPLETE 4/MORE VIEWS Jessy Pina PA-C [address] [place] [address] Xr Imaging Referral ID Status Reason Start Date Expiration Date V isits Requested Visits Authorized [id number] Closed Auto-Generate d Referral 04/17/2022 05/17/2023 1 1 [facility] Summary Purpose Family History No Family History Records FoundNo Family History Records FoundNo Family History Records Found Advance Directives Documents on File Type Date Recorded 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 Advance Directive(s) 05/29/2020 7:38 AM Documents on File Type Date Recorded 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 Advance Directive(s) 05/29/2020 7:38 AM [...] unspecified type Procedures CONSULT TO UROLOGY OFFICE/OUTPATIENT [facility] 60-74 MINUTES Maurice Hackett MD [address] [place] [address] Referral ID Status Reason Start Date Expiration Date Visits Requested Visits Authorized [id number] Authorized PCP Requested Referral 11/14/2022 11/14/2023 1 1 Specialty Diagnoses / Procedures Referred By Contac t Referred To Contact Orthopedics Diagnoses Chronic pain of right knee Procedures CONSULT TO ORTHOPAEDICS OFFICE/OUTPATIENT [facility] 60-74 MINUTES Manisha Nichole INSTRUCTIONAL DESIGNER.PEN AND PENCIL REPAIRER [address] [place] [address] Referral ID Status Reason Start Date Expiration Date Visits Requested Visits Authorized [id number] Authorized PCP Requested Referral 07/08/2024 1 1 Specialty Diagnoses / Procedures Referred By Contac t Referred To Contact CT IMAGING Diagnoses TIA (transient ischemic attack) Aphasia Ocular migraine Procedures CT BRAIN WO IVCON CT HEAD/BRAIN W/O CONTRAST MATERIAL Halle Sampson INSTRUCTIONAL DESIGNER.PEN AND PENCIL REPAIRER [address] [place] [address] [place] [address] Referral ID Status Reason Start Date Expiration Date V isits Requested Visits Authorized [id number] Closed Auto-Generate d Referral 11/02/2023 12/01/2024 1 1 Additional Source Comments INFORMATION SOURCE (unrecogn ized section and content) DATE CREATED AUTHOR AUTHOR'S ORGANIZ ATION 04/22/2022 [facility] DATE CREATED AUTHOR AUTHOR'S ORGANIZ ATION 11/18/2023 [facility] Source Comments (unrecognize d section and content) In the event this informatio n is protected by the Federal Confidentiality of Alcohol and Drug Abuse Patient Records regulations: The Federal rules restrict any use of the information to criminally investigate or prosecute any alcohol or drug abuse patient.[facility] HospitalIn the event this information is protected by the Federal Confidentiality of Alcohol and Drug Abuse Patient Records regulations: The Federal rules restrict any use of the information to criminally investigate or prosecute any alcohol or drug abuse patient.[facility] HospitalIn the event this information is protected by the Federal Confidentiality of Alcohol and Drug Abuse Patient Records regulations: The Federal rules restrict any use of the information to criminally investigate or prosecute any alcohol or drug abuse patient.[facility] HospitalIn the event this information is protected by the Federal Confidentiality of Alcohol and Drug Abuse Patient Records regulations: The Federal rules restrict any use of the information to criminally investigate or prosecute any alcohol or drug abuse patient.[facility] HospitalIn the event this information is protected by the Federal Confidentiality of Alcohol and Drug Abuse Patient Records regulations: The Federal rules restrict any use of the information to criminally investigate or prosecute any alcohol or drug abuse patient.[facility] HospitalIn the event this information is protected by the Federal Confidentiality of Alcohol and Drug Abuse Patient Records regulations: The Federal rules restrict any use of the information to criminally investigate or prosecute any alcohol or drug abuse patient.[facility] HospitalIn the event this information is protected by the Federal Confidentiality of Alcohol and Drug Abuse Patient Records regulations: The Federal rules restrict any use of the information to criminally investigate or prosecute any alcohol or drug abuse patient.[facility] HospitalIn the event this information is protected by the Federal Confidentiality of Alcohol and Drug Abuse Patient Records regulations: The Federal rules restrict any use of the information to criminally investigate or prosecute any alcohol or drug abuse patient.[facility] HospitalIn the event this information is protected by the Federal Confidentiality of Alcohol and Drug Abuse Patient Records regulations: The Federal rules restrict any use of the information to criminally investigate or prosecute any alcohol or drug abuse patient.[facility] HospitalIn the event this information is protected by the Federal Confidentiality of Alcohol and Drug Abuse Patient Records regulations: The Federal rules restrict any use of the information to criminally investigate or prosecute any alcohol or drug abuse patient.[facility] HospitalIn the event this information is protected by the Federal Confidentiality of Alcohol and Drug Abuse Patient Records regulations: The Federal rules restrict any use of the information to criminally investigate or prosecute any alcohol or drug abuse patient.[facility] HospitalIn the event this information is protected by the Federal Confidentiality of Alcohol and Drug Abuse Patient Records regulations: The Federal rules restrict any use of the information to criminally investigate or prosecute any alcohol or drug abuse patient.[facility] HospitalIn the event this information is protected by the Federal Confidentiality of Alcohol and Drug Abuse Patient Records regulations: The Federal rules restrict any use of the information to criminally investigate or prosecute any alcohol or drug abuse patient.[facility] HospitalIn the event this information is protected by the Federal Confidentiality of Alcohol and Drug Abuse Patient Records regulations: The Federal rules restrict any use of the information to criminally investigate or prosecute any alcohol or drug abuse patient.[facility] HospitalIn the event this information is protected by the Federal Confidentiality of Alcohol and Drug Abuse Patient Records regulations: The Federal rules restrict any use of the information to criminally investigate or prosecute any alcohol or drug abuse patient.[facility] HospitalIn the event this information is protected by the Federal Confidentiality of Alcohol and Drug Abuse Patient Records regulations: The Federal rules restrict any use of the information to criminally investigate or prosecute any alcohol or drug abuse patient.[facility] HospitalIn the event this information is protected by the Federal Confidentiality of Alcohol and Drug Abuse Patient Records regulations: The Federal rules restrict any use of the information to criminally investigate or prosecute any alcohol or drug abuse patient.[facility] HospitalIn the event this information is protected by the Federal Confidentiality of Alcohol and Drug Abuse Patient Records regulations: The Federal rules restrict any use of the information to criminally investigate or prosecute any alcohol or drug abuse patient.[facility] HospitalIn the event this information is protected by the Federal Confidentiality of Alcohol and Drug Abuse Patient Records regulations: The Federal rules restrict any use of the information to criminally investigate or prosecute any alcohol or drug abuse patient.[facility] HospitalIn the event this information is protected by the Federal Confidentiality of Alcohol and Drug Abuse Patient Records regulations: The Federal rules restrict any use of the information to criminally investigate or prosecute any alcohol or drug abuse patient.[facility] HospitalIn the event this information is protected by the Federal Confidentiality of Alcohol and Drug Abuse Patient Records regulations: The Federal rules restrict any use of the information to criminally investigate or prosecute any alcohol or drug abuse patient.[facility] HospitalIn the event this information is protected by the Federal Confidentiality of Alcohol and Drug Abuse Patient Records regulations: The Federal rules restrict any use of the information to criminally investigate or prosecute any alcohol or drug abuse patient.[facility] HospitalIn the event this information is protected by the Federal Confidentiality of Alcohol and Drug Abuse Patient Records regulations: The Federal rules restrict any use of the information to criminally investigate or prosecute any alcohol or drug abuse patient.[facility] HospitalIn the event this information is protected by the Federal Confidentiality of Alcohol and Drug Abuse Patient Records regulations: The Federal rules restrict any use of the information to criminally investigate or prosecute any alcohol or drug abuse patient.[facility] HospitalIn the event this information is protected by the Federal Confidentiality of Alcohol and Drug Abuse Patient Records regulations: The Federal rules restrict any use of the information to criminally investigate or prosecute any alcohol or drug abuse patient.[facility] HospitalIn the event this information is protected by the Federal Confidentiality of Alcohol and Drug Abuse Patient Records regulations: The Federal rules restrict any use of the information to criminally investigate or prosecute any alcohol or drug abuse patient.[facility] HospitalIn the event this information is protected by the Federal Confidentiality of Alcohol and Drug Abuse Patient Records regulations: The Federal rules restrict any use of the information to criminally investigate or prosecute any alcohol or drug abuse patient.[facility] HospitalIn the event this information is protected by the Federal Confidentiality of Alcohol and Drug Abuse Patient Records regulations: The Federal rules restrict any use of the information to criminally investigate or prosecute any alcohol or drug abuse patient.[facility] HospitalIn the event this information is protected by the Federal Confidentiality of Alcohol and Drug Abuse Patient Records regulations: The Federal rules restrict any use of the information to criminally investigate or prosecute any alcohol or drug abuse patient.[facility] HospitalIn the event this information is protected by the Federal Confidentiality of Alcohol and Drug Abuse Patient Records regulations: The Federal rules restrict any use of the information to criminally investigate or prosecute any alcohol or drug abuse patient.[facility] HospitalIn the event this information is protected by the Federal Confidentiality of Alcohol and Drug Abuse Patient Records regulations: The Federal rules restrict any use of the information to criminally investigate or prosecute any alcohol or drug abuse patient.[facility] HospitalIn the event this information is protected by the Federal Confidentiality of Alcohol and Drug Abuse Patient Records regulations: The Federal rules restrict any use of the information to criminally investigate or prosecute any alcohol or drug abuse patient.[facility] HospitalIn the event this information is protected by the Federal Confidentiality of Alcohol and Drug Abuse Patient Records regulations: The Federal rules restrict any use of the information to criminally investigate or prosecute any alcohol or drug abuse patient.[facility] HospitalIn the event this information is protected by the Federal Confidentiality of Alcohol and Drug Abuse Patient Records regulations: The Federal rules restrict any use of the information to criminally investigate or prosecute any alcohol or drug abuse patient.[facility] HospitalIn the event this information is protected by the Federal Confidentiality of Alcohol and Drug Abuse Patient Records regulations: The Federal rules restrict any use of the information to criminally investigate or prosecute any alcohol or drug abuse patient.[facility] HospitalIn the event this information is protected by the Federal Confidentiality of Alcohol and Drug Abuse Patient Records regulations: The Federal rules restrict any use of the information to criminally investigate or prosecute any alcohol or drug abuse patient.[facility] HospitalIn the event this information is protected by the Federal Confidentiality of Alcohol and Drug Abuse Patient Records regulations: The Federal rules restrict any use of the information to criminally investigate or prosecute any alcohol or drug abuse patient.[facility] HospitalIn the event this information is protected by the Federal Confidentiality of Alcohol and Drug Abuse Patient Records regulations: The Federal rules restrict any use of the information to criminally investigate or prosecute any alcohol or drug abuse patient.[facility] HospitalIn the event this information is protected by the Federal Confidentiality of Alcohol and Drug Abuse Patient Records regulations: The Federal rules restrict any use of the information to criminally investigate or prosecute any alcohol or drug abuse patient.[facility] HospitalIn the event this information is protected by the Federal Confidentiality of Alcohol and Drug Abuse Patient Records regulations: The Federal rules restrict any use of the information to criminally investigate or prosecute any alcohol or drug abuse patient.[facility] HospitalIn the event this information is protected by the Federal Confidentiality of Alcohol and Drug Abuse Patient Records regulations: The Federal rules restrict any use of the information to criminally investigate or prosecute any alcohol or drug abuse patient.[facility] HospitalIn the event this information is protected by the Federal Confidentiality of Alcohol and Drug Abuse Patient Records regulations: The Federal rules restrict any use of the information to criminally investigate or prosecute any alcohol or drug abuse patient.[facility] HospitalIn the event this information is protected by the Federal Confidentiality of Alcohol and Drug Abuse Patient Records regulations: The Federal rules restrict any use of the information to criminally investigate or prosecute any alcohol or drug abuse patient.[facility] HospitalIn the event this information is protected by the Federal Confidentiality of Alcohol and Drug Abuse Patient Records regulations: The Federal rules restrict any use of the information to criminally investigate or prosecute any alcohol or drug abuse patient.[facility] HospitalIn the event this information is protected by the Federal Confidentiality of Alcohol and Drug Abuse Patient Records regulations: The Federal rules restrict any use of the information to criminally investigate or prosecute any alcohol or drug abuse patient.[facility] HospitalIn the event this information is protected by the Federal Confidentiality of Alcohol and Drug Abuse Patient Records regulations: The Federal rules restrict any use of the information to criminally investigate or prosecute any alcohol or drug abuse patient.[facility] HospitalIn the event this information is protected by the Federal Confidentiality of Alcohol and Drug Abuse Patient Records regulations: The Federal rules restrict any use of the information to criminally investigate or prosecute any alcohol or drug abuse patient.[facility] HospitalIn the event this information is protected by the Federal Confidentiality of Alcohol and Drug Abuse Patient Records regulations: The Federal rules restrict any use of the information to criminally investigate or prosecute any alcohol or drug abuse patient.[facility] HospitalIn the event this information is protected by the Federal Confidentiality of Alcohol and Drug Abuse Patient Records regulations: The Federal rules restrict any use of the information to criminally investigate or prosecute any alcohol or drug abuse patient.[facility] Reason for Visit (unrecogniz ed section and [...] ED Follow-up ER follow up from at [facility] for Diarrhea Reason Comments Medicare Wellness Exam [...] right knee Procedures CONSULT TO ORTHOPAEDICS OFFICE/OUTPATIENT [facility] MDM 60-74 MINUTES Manisha Nichole INSTRUCTIONAL DESIGNER.PEN AND PENCIL REPAIRER [address] [place] [address] Referral ID Status Reason Start Date Expiration Date V isits Requested Visits Authorized [id number] Closed PCP Requested Referral 07/09/2023 07/08/2024 1 [...] CT HEAD/BRAIN W/O CONTRAST MATERIAL Halle Sampson, INSTRUCTIONAL DESIGNER.PEN AND PENCIL REPAIRER [address] [place] [address] [place] [address] Referral ID Status Reason Start Date Expiration Date V isits Requested Visits Authorized [id number] Closed Auto-Generate d Referral 11/02/2023 12/01/2024 1 1 Care Teams (unrecognized sec tion and content) Stone Rubber Relationship Specialty Start Date End Date Mauriec Hackett MD [address] [place], [place] [id number] PCP - General Internal Medicine 08/17/15 Stone Rubber Relationship Specialty Start Date End Date Maurice Hackett MD [address] [place], [place] [id number] PCP - General Internal Medicine 08/17/15 Stone Rubber Relationship Specialty Start Date End Date Maurice Hackett MD [address] [place] [address] PCP - General Internal Medicine 08/17/15 Stone Rubber Relationship Specialty Start Date End Date Maurice Hackett MD [address] [place] [address] PCP - General Internal Medicine 08/17/15 Stone Rubber Relationship Specialty Start Date End Date Maurice Hackett MD [address] [place] [address] PCP - General Internal Medicine 08/17/15 Stone Rubber Relationship Specialty Start Date End Date Maurice Hackett MD [address] [place] [address] PCP - General Internal Medicine 08/17/15 Stone Rubber Relationship Specialty Start Date End Date Maurice Hackett MD [address] [place] [address] PCP - General Internal Medicine 08/17/15 Stone Rubber Relationship Specialty Start Date End Date Maurice Hackett MD [address] [place] [address] PCP - General Internal Medicine 08/17/15 Stone Rubber Relationship Specialty Start Date End Date Maurice Hackett MD [address] [place] [address] PCP - General Internal Medicine 08/17/15 Stone Rubber Relationship Specialty Start Date End Date Maurice Hackett MD [address] [place] [address] PCP - General Internal Medicine 08/17/15 Stone Rubber Relationship Specialty Start Date End Date Maurice Hackett MD [address] [place] [address] PCP - General Internal Medicine 08/17/15 Stone Rubber Relationship Specialty Start Date End Date Maurice Hackett MD [address] [place] [address] PCP - General Internal Medicine 08/17/15 Stone Rubber Relationship Specialty Start Date End Date Maurice Hackett MD [address] [place] [address] PCP - General Internal Medicine 08/17/15 Stone Rubber Relationship Specialty Start Date End Date Maurice Hackett MD [address] [place] [address] PCP - General Internal Medicine 08/17/15 Stone Rubber Relationship Specialty Start Date End Date Maurice Hackett MD [address] [place] [address] PCP - General Internal Medicine 08/17/15 Stone Rubber Relationship Specialty Start Date End Date Maurice Hackett MD [address] [place] [address] PCP - General Internal Medicine 08/17/15 Stone Rubber Relationship Specialty Start Date End Date Maurice Hackett MD [address] [place] [address] PCP - General Internal Medicine 08/17/15 Stone Rubber Relationship Specialty Start Date End Date Maurice Hackett MD [address] [place] [address] PCP - General Internal Medicine 08/17/15 Stone Rubber Relationship Specialty Start Date End Date Maurice Hackett MD [address] [place] [address] PCP - General Internal Medicine 08/17/15 Stone Rubber Relationship Specialty Start Date End Date Maurice Hackett MD [address] [place] [address] PCP - General Internal Medicine 08/17/15 Stone Rubber Relationship Specialty Start Date End Date Maurice Hackett MD [address] [place] [address] PCP - General Internal Medicine 08/17/15 Stone Rubber Relationship Specialty Start Date End Date Maurice Hackett MD [address] [place] [address] PCP - General Internal Medicine 08/17/15 Stone Rubber Relationship Specialty Start Date End Date Maurice Hackett MD [address] [place] [address] PCP - General Internal Medicine 08/17/15 Stone Rubber Relationship Specialty Start Date End Date Maurice Hackett MD [address] [place] [address] PCP - General Internal Medicine 08/17/15 Stone Rubber Relationship Specialty Start Date End Date Maurice Hackett MD [address] [place] [address] PCP - General Internal Medicine 08/17/15 Stone Rubber Relationship Specialty Start Date End Date Maurice Hackett MD [address] [place] [address] PCP - General Internal Medicine 08/17/15 Stone Rubber Relationship Specialty Start Date End Date Maurice Hackett MD [address] [place] [address] PCP - General Internal Medicine 08/17/15 Stone Rubber Relationship Specialty Start Date End Date Maurice Hackett MD [address] [place] [address] PCP - General Internal Medicine 08/17/15 Stone Rubber Relationship Specialty Start Date End Date Maurice Hackett MD [address] [place] [address] PCP - General Internal Medicine 08/17/15 Stone Rubber Relationship Specialty Start Date End Date Maurice Hackett MD [address] [place] [address] PCP - General Internal Medicine 08/17/15 Stone Rubber Relationship Specialty Start Date End Date Maurice Hackett MD [address] [place] [address] PCP - General Internal Medicine 08/17/15 Stone Rubber Relationship Specialty Start Date End Date Maurice Hackett MD [address] [place] [address] PCP - General Internal Medicine 08/17/15 Stone Rubber Relationship Specialty Start Date End Date Maurice Hackett MD [address] [place] [address] PCP - General Internal Medicine 08/17/15 FOR [...] BE BASED ON THE PRIMARY CLINICAL RECORDS. [facility]. provides no warranty or guarantee of the accuracy or completeness of information in this document.
[2023-11-22 00:18] LABS: Procalcitonin 0.04 ng/mL (0.00-0.09)
[2023-11-22 01:29] VITALS: BMI 18.0
[2023-11-22 01:34] VITALS: BP 138/65; PULSE 71; RESP 16; TEMP 36.4; O2SAT 100
[2023-11-22] MEDS: 0.9% Normal Saline (1000mL) 1,000 ML 100 ML IV (01:49)
[2023-11-22] MEDS: 0.9% Saline Lock 10 ML Syringe IV (01:54)
[2023-11-22 01:58] VITALS: BP 138/65; PULSE 71
[2023-11-22] MEDS: Metoprolol(XL)Succ 25 MG Tablet PO (01:58)
[2023-11-22] MEDS: Dofetilide 250 MCG Capsule PO ×2 (03:19→11:03)
[2023-11-22] MEDS: APIXABAN 5 MG TABLET PO ×2 (03:20→11:02)
[2023-11-22] MEDS: Ondansetron 4 MG/2 ML Vial IV (03:24)
[2023-11-22 06:00] VITALS: BMI 18.0
[2023-11-22 06:01] VITALS: BP 126/64; PULSE 65; RESP 16; TEMP 36.6; O2SAT 98
[2023-11-22 06:50] LABS: Absolute Lymphocyte Count 1.14 X10^3/uL (0.83-4.51); Absolute Neutrophil Count 2.6 X10^3/uL (2.0-7.7); Basophil# 0.02 X10^3/uL; Basophil% 0.5 % (0-1); Eosinophil# 0.01 X10^3/uL; Eosinophils% 0.2 % (0-5); Hematocrit 28.8 % (37-47); Hemoglobin 9.6 g/dL (12.0-15.0); Lymphocyte # 1.14 X10^3/ul (0.83-4.51); Mean Corp Hgb Conc 33.3 g/dL (32-36); Mean Corpuscular Hgb 29.7 pg (27.0-32.0); Mean Corpuscular Volume 89.2 fL (81-99); Mean Platelet Vol. 9.7 fl (6.2-12.0); Monocyte# 0.45 X10^3/uL; Monocyte% 10.6 % (0-10); NRBC Flagged by Analyzer 0 % (0-5); Neutrophil % 61.5 % (47-70); Platelet Count 242 K/mm3 (150-450); Red Blood Count 3.23 M/mm3 (4.2-5.4); White Blood Count 4.2 K/mm3 (4.4-11.0)
[2023-11-22 07:45] VITALS: O2SAT 94
[2023-11-22 08:24] LABS: ALB/GLOB Ratio 0.9 RATIO (0.9-2.4); AST(SGOT) 17 U/L (15-37); Alanine Aminotransfer ALT/SGPT 16 U/L (13-56); Albumin, Serum 2.5 g/dL (3.2-5.0); Alkaline Phosphatase 57 U/L (45-117); Anion Gap 5 (5-15); BUN 9 mg/dL (7-18); BUN/Creat Ratio 12.3 RATIO (10-20); Calcium,Total 7.1 mg/dL (8.5-10.1); Chloride 101 mmol/L (98-107); Creatinine, Serum 0.73 mg/dL (0.55-1.02); EST Glomerular Filtration Rate 81 mL/min (>60); Est Glom Filt Rate - Afr Amer 98 mL/min (>60); Estimated Creatinine Clearance 45.54 ml/min; Globulin 2.9 g/dL (2.2-4.2); Glucose 110 mg/dL (74-106); Potassium 3.4 mmol/L (3.5-5.1); Protein, Total 5.4 g/dL (6.4-8.2); Sodium Level 131 mmol/L (136-145)
[2023-11-22 09:05] LABS: Ferritin 8 ng/mL (8-252); Iron 65 ug/dL (50-170); Iron Binding Capacity,Total 381 ug/dL (250-450); PERCENT IRON SATURATION 17.1 % (15.0-55.0)
[2023-11-22 09:19] LABS: Urine Sodium 147 mmol/L (Not Establ.)
[2023-11-22 09:54] LABS: Osmolality, Urine 367 mOsm/KG
[2023-11-22 09:54] LABS: Osmolality, Serum 265 mOsm/KG (280-301)
[2023-11-22] MEDS: Pantoprazole Sodium 40 MG Tablet PO (11:02)
[2023-11-22] MEDS: Magnesium Chloride 64 MG Delay Rel.Tablet 128 MG PO (11:02)
[2023-11-22 11:03] VITALS: PULSE 69
[2023-11-22] MEDS: Metoprolol(XL)Succ 25 MG Tablet 12.5 MG PO (11:03)
--- NOTE | 2023-11-22 12:02 | PCM.DC.SUM ---
Providers Date of Admission: 11/21/23 Date of Discharge: 11/22/23 Primary Care Physician: Dr. Rochelle Brandt MD Reason For Visit: INTRACTABLE N/V Diagnosis Discharge Diagnosis (1) Acute hyponatremia: Status: Acute Code(s): E87.1 - Hypo-osmolality and hyponatremia (2) Intractable nausea and vomiting: Status: Acute Code(s): R11.2 - Nausea with vomiting, unspecified Medications at Discharge Home Medications Bilaterl knee high compression stockings (10-20) #2 ea 05/29/22 clobetasol 0.05 % topical cream 1 applic topical .COMPLEX #15 grams 08/05/22 calcium carbonate 600 mg calcium (1,500 mg) tablet 600 mg PO DAILY 10/14/22 cholecalciferol (vitamin D3) 10 mcg (400 unit) capsule 2,000 unit PO DAILY supplement 10/14/22 esomeprazole magnesium 40 mg capsule,delayed release See Rx Instructions .Route .COMPLEX #90 caps 12/18/22 magnesium oxide 400 mg (241.3 mg magnesium) tablet 400 mg PO DAILY #90 tabs 01/19/23 metoprolol succinate 25 mg tablet,extended release 24 hr 25 mg PO .COMPLEX #135 tabs 01/28/23 metoclopramide HCl 10 mg tablet (Reglan) 10 mg PO Q6H PRN nausea and vomiting 3 days #18 tabs 04/25/23 apixaban 5 mg tablet 5 mg PO BID #60 tabs 07/23/23 meclizine 25 mg tablet 25 mg PO TID PRN dizziness 3 days #9 tabs 08/29/23 fludrocortisone 0.1 mg tablet 0.05 mg (1/2 x 0.1 mg) .Route .COMPLEX #8 tabs 09/22/23 dofetilide 250 mcg capsule See Rx Instructions .Route .COMPLEX #180 caps 10/12/23 Hospital Course Operations None Procedures None Summary of Care Provided Minutes Spent on Discharge: 35 Hospital Course: Patient is an 83-year-old female who presented with [facility] ED on 11/21/2023 with nausea and vomiting and and acute on chronic hyponatremia. Short hospital course as noted below. Patient discharged home without any therapy needs in stable condition on 11/21. 1. Intractable nausea and vomiting, resolved ? Patient reported acute onset nausea with multiple episodes of vomiting on day of admission. Stated she felt nauseous while grocery shopping and then did not tolerate the car ride home well, which led to her having several episodes of vomiting. No further episodes of vomiting after arriving in the ED. ? Etiology unclear but likely due to external triggers. Patient tolerating regular diet prior to discharge. 2. Acute on chronic hyponatremia, improved; history of SIADH ? Sodium 126 on admit. Has known history of SIADH, follows with outpatient nephrology. Acute hyponatremia presumed secondary to dehydration in setting of GI losses. S/p 1 L normal saline bolus in ED, followed by another 1 L normal saline given on the floor over the course of 10 hours. Repeat sodium 131 on 11/21. ? Recommend repeat BMP in 5 to 7 days to assure continued stability or improvement of sodium level. Follow-up with outpatient neurology as needed. Chronic medical conditions: ? Paroxysmal A-fib: Continue home metoprolol, dofetilide and Eliquis. ? 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 Follows with oncology, continue outpatient follow-up. ? Adrenal insufficiency: Continue home fludrocortisone. ? GERD: Continue home PPI. Total clinical time spent by myself addressing the patient's medical issues, reviewing all the data, and collaborating with patient's care team: 35 minutes. Physical Exam Const alert, oriented x3 and no apparent distress Constitutional Narrative: Pleasant elderly female, thin appearing, somewhat chronically ill-appearing, laying comfortably in bed, conversing normally, no acute distress. General Appearance: cooperative and comfortable HEENT normocephalic, head/scalp atraumatic, hearing grossly normal bilaterally, nasal mucous membranes and turbinates normal and moist oral mucous membranes Eyes PERRL, EOMs intact bilaterally and conjunctivae normal Neck full ROM Chest inspection of chest normal Resp normal respiratory effort, normal air movement, no use of accessory muscles and clear to auscultation bilaterally Cardio regular rate, regular rhythm, no murmurs and peripheral pulses 2+ throughout GI normal to inspection, nondistended, normoactive bowel sounds, soft to palpation, non-tender and non-distended Back/Spine normal ROM Extremity normal to inspection, full ROM and no pedal edema Skin no rashes or lesions noted Neuro moves all extremities and no focal motor deficits Speech: speech normal Psych mental status grossly normal Weight / BMI Weight Weight: 52.3 kg Body Mass Index (BMI) 18.0 ABG / Lab / Microbiology Data 11/22/23 05:32 11/22/23 05:32 Laboratory: Laboratory Results - last 24 hr 11/21/23 19:55: WBC 4.8, RBC 4.19 L, Hgb 12.3, Hct 36.4 L, MCV 86.9, MCH 29.4, MCHC 33.8, RDW Std Deviation 44.6 H, RDW Coeff of Idania 14.0, Plt Count 278, MPV 8.9, Immature Gran % (Auto) 0.200, Neut % (Auto) 60.6, Lymph % (Auto) 32.0, [place] % (Auto) 6.2, Eos % (Auto) 0.4, Baso % (Auto) 0.6, Absolute Neuts (auto) 2.9, Absolute Lymphs (auto) 1.55, Nucleated RBC % 0, Sodium 126 L, Potassium 3.6, Chloride 94 L, Carbon Dioxide 23.0, Anion Gap 9, BUN 11, Creatinine 0.79, Estim Creat Clear Calc 45.81, Est GFR (MDRD) Af Amer 90, Est GFR (MDRD) Non-Af 74, BUN/Creatinine Ratio 13.9, Glucose 145 H, Calcium 8.5, Phosphorus 2.5, Magnesium 2.1, Total Bilirubin 0.90, AST 20, ALT 21, Alkaline Phosphatase 78, Total Protein 7.3, Albumin 3.3, Globulin 4.0, Albumin/Globulin Ratio 0.8 L 11/21/23 21:20: Urine Color Yellow, Urine Clarity Clear, Urine pH 8.0, Ur Specific [place] 1.015, Urine Protein 15 H, Urine Glucose (UA) 100 H, Urine Ketones 15 H, Urine Occult Blood 10 H, Urine Nitrite Negative, Urine Bilirubin Negative, Urine Urobilinogen Normal, Ur Leukocyte Esterase Negative, Urine RBC 0 SEEN, Urine WBC 0 SEEN, Ur Squamous Epith Cells 0 SEEN, Urine Bacteria 0 SEEN, Urine Mucus 0 SEEN, Urine Osmolality 367, Ur Random Sodium 147 11/21/23 23:25: Procalcitonin 0.04 11/22/23 05:32: WBC 4.2 L, RBC 3.23 L, Hgb 9.6 L, Hct 28.8 L, MCV 89.2, MCH 29.7, MCHC 33.3, RDW Std Deviation 46.0 H, RDW Coeff of Idania 14.0, Plt Count 242, MPV 9.7, Immature Gran % (Auto) 0.200, Neut % (Auto) 61.5, Lymph % (Auto) 27.0, [place] % (Auto) 10.6 H, Eos % (Auto) 0.2, Baso % (Auto) 0.5, Absolute Neuts (auto) 2.6, Absolute Lymphs (auto) 1.14, Nucleated RBC % 0, Sodium 131 L, Potassium 3.4 L, Chloride 101, Carbon Dioxide 25.0, Anion Gap 5, BUN 9, Creatinine 0.73, Estim Creat Clear Calc 45.54, Est GFR (MDRD) Af Amer 98, Est GFR (MDRD) Non-Af 81, BUN/Creatinine Ratio 12.3, Glucose 110 H, Serum Osmolality 265 L, Calcium 7.1 L, Iron 65, TIBC 381, Iron Saturation 17.1, Ferritin 8, Total Bilirubin 0.60, AST 17, ALT 16, Alkaline Phosphatase 57, Total Protein 5.4 L, Albumin 2.5 L, Globulin 2.9, Albumin/Globulin Ratio 0.9, Folate 12.30 Microbiology: Microbiology 11/21/23 00:04 Mucosa - Nose Respiratory Panel (PCR) - Final Meaningful Use Info Meaningful Use Diagnoses (Choose all that apply): None applicable Discharge Plan Admission Admit Date/Time: 11/21/23 23:07 Primary Reason for Your Visit: Nausea and vomiting, dehydration Attending Provider: Marty Bassett Primary Care Provider: Rochelle Brandt Consulting Providers: Michelle Hunt Discharge Orders/Prescriptions Prescriptions: Continued (DME) Bilaterl knee high compression stockings (10-20) See Rx Instructions .Route .MEDSUPPLY Qty: 2 0RF Rx Instructions: As directed calcium carbonate 600 mg calcium (1,500 mg) tablet 600 mg PO DAILY magnesium oxide 400 mg (241.3 mg magnesium) tablet 400 mg PO DAILY Qty: 90 3RF fludrocortisone 0.1 mg tablet 0.05 mg .ROUTE .COMPLEX Qty: 8 5RF Rx Instructions: Take 1/2 tablet po every Thursday, Thursday and Thursday cholecalciferol (vitamin D3) 10 mcg (400 unit) capsule 2,000 unit PO DAILY meclizine 25 mg tablet 25 mg PO TID PRN (Reason: dizziness) 3 Days Qty: 9 0RF metoclopramide HCl [Reglan] 10 mg tablet 10 mg PO Q6H PRN (Reason: nausea and vomiting) 3 Days Qty: 18 0RF clobetasol 0.05 % cream 1 applic TOPICAL .COMPLEX Qty: 15 0RF Rx Instructions: 1 applic TOPICAL apply thin layer as directed bid X 2 weeks then daily X 2 weeks; apply thin layer; massage in to cover area esomeprazole magnesium 40 mg capsule,delayed release(DR/EC) See Rx Instructions .ROUTE .COMPLEX Qty: 90 3RF Dose Instruction: take 1 capsule by mouth daily Rx Instructions: take 1 capsule by mouth daily metoprolol succinate 25 mg tablet extended release 24 hr 25 mg PO .COMPLEX Qty: 135 3RF Rx Instructions: 1/2 tablet (12.5 mg) in the morning and a whole tablet (25 mg) at bedtime apixaban 5 mg tablet 5 mg PO BID Qty: 60 11RF dofetilide 250 mcg capsule See Rx Instructions .ROUTE .COMPLEX Qty: 180 3RF Dose Instruction: TAKE 1 CAPSULE EVERY 12 HOURS FOR ATRIAL FIBRILLATION Rx Instructions: TAKE 1 CAPSULE EVERY 12 HOURS FOR ATRIAL FIBRILLATION Referrals / Follow Up: Rochelle Brandt MD [Primary Care Provider] - Disposition Disposition (needs filled in before D/C Order can be placed): Home, Self Care Charges/Coding Visit Charges Inpatient E&M: 23843 Disch Hosp >30min
[2023-11-22 16:13] VITALS: BP 122/49; PULSE 66; RESP 16; TEMP 36.8; O2SAT 97
[2023-11-23 07:53] LABS: Vitamin B12 353 pg/mL (211-911)
== END 2023-11-22 16:54 | disposition home or self-care (01) ==
LOC: ED 23:18 → MS3 23:57
PROVIDERS: Admitting Provider Family Medicine; Emergency Provider Emergency Medicine; PCP Internal Medicine; Visit Provider Hospitalist
DX: E87.1 Hypo-osmolality and hyponatremia (principal); I48.0 Paroxysmal atrial fibrillation; I48.92 Unspecified atrial flutter; E27.40 Unspecified adrenocortical insufficiency; R11.2 Nausea with vomiting, unspecified; Z86.16 Personal history of COVID-19; K21.9 Gastro-esophageal reflux disease without esophagitis; Z79.01 Long term (current) use of anticoagulants; Z79.899 Other long term (current) drug therapy; R73.9 Hyperglycemia, unspecified; L90.0 Lichen sclerosus et atrophicus; Z85.3 Personal history of malignant neoplasm of breast; Z86.73 Personal history of transient ischemic attack (TIA), and cerebral infarction without residual deficits; K52.9 Noninfective gastroenteritis and colitis, unspecified
CPT/HCPCS: 36415; 80053; 81001; 82607; 82728; 82746; 83540; 83550; 83735; 83930; 83935; 84100; 84145; 84300; 85025; 87633; 93005; 94668; 96361; 96374; 96375; 99221; 99252; 99285; J7030; A4216; G0378; G0463; J2405

== ENCOUNTER 2023-12-08 20:28 | Emergency (ER) | payer MEDICARE, OTHER, SELFPAY ==
[2023-12-08 20:29] VITALS: BP 138/65; PULSE 79; RESP 16; TEMP 37.2; O2SAT 97; BMI 19.1
--- NOTE | 2023-12-08 20:47 | EX.ED.DYSGE1 ---
HPI History of Present Illness Chief Complaint: General Illness Informant: patient Onset/Context/Timing Onset: Yesterday Context: Gradual Onset Timing: Continuous Quality: Weakness, aching Location: Generalized Worsened by: Nothing Relieved by: Tylenol Narrative Narrative: Patient presents with weakness and bodyaches that began yesterday. Patient states they have gotten worse today. Patient states she feels weak all over. Patient states she has muscle aches and pain in her back. Patient states she took some Tylenol earlier today which helped. Patient states nothing makes it worse. Patient states she also recently had a COVID-vaccine. Patient states her has had similar symptoms at home. Patient admits to some subjective fevers. 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) Breast pain, right Chronic diarrhea Chronic hyponatremia Compression fracture of L1 lumbar vertebra COVID-19 Diverticulitis GERD (gastroesophageal reflux disease) History of atrial flutter history of blood transfusion History of breast cancer IBS (irritable bowel syndrome) Lichen sclerosus Migraine Nonrheumatic mitral (valve) prolapse Osteopenia Osteopenia 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 Ovarian cyst Paroxysmal atrial fibrillation Paroxysmal atrial flutter SIADH (syndrome of inappropriate ADH production) TIA (transient ischemic attack) Home Medications Bilaterl knee high compression stockings (10-20) #2 ea 05/29/22 [Rx Last Taken Unknown] clobetasol 0.05 % topical cream 1 applic topical .COMPLEX #15 grams 08/05/22 [Rx Last Taken Unknown] calcium carbonate 600 mg calcium (1,500 mg) tablet 600 mg PO DAILY 10/14/22 [History Last Taken Unknown] cholecalciferol (vitamin D3) 10 mcg (400 unit) capsule 2,000 unit PO DAILY supplement 10/14/22 [History Last Taken Unknown] esomeprazole magnesium 40 mg capsule,delayed release See Rx Instructions .Route .COMPLEX #90 caps 12/18/22 [Rx Last Taken Unknown] magnesium oxide 400 mg (241.3 mg magnesium) tablet 400 mg PO DAILY #90 tabs 01/19/23 [Rx Last Taken Unknown] metoprolol succinate 25 mg tablet,extended release 24 hr 25 mg PO .COMPLEX #135 tabs 01/28/23 [Rx Last Taken Unknown] metoclopramide HCl 10 mg tablet (Reglan) 10 mg PO Q6H PRN nausea and vomiting 3 days #18 tabs 04/25/23 [Rx Last Taken Unknown] apixaban 5 mg tablet 5 mg PO BID #60 tabs 07/23/23 [Rx Last Taken Unknown] meclizine 25 mg tablet 25 mg PO TID PRN dizziness 3 days #9 tabs 08/29/23 [Rx Last Taken Unknown] fludrocortisone 0.1 mg tablet 0.05 mg (1/2 x 0.1 mg) .Route .COMPLEX #8 tabs 09/22/23 [Rx Last Taken Unknown] dofetilide 250 mcg capsule See Rx Instructions .Route .COMPLEX #180 caps 10/12/23 [Rx Last Taken Unknown] nitrofurantoin monohydrate/macrocrystals 100 mg capsule 100 mg PO Q12 #10 CAPSULES 12/08/23 [Rx Last Taken Unknown] Allergy/AdvReac Type Severity Reaction Status Date / Time cantaloupe Allergy Severe Anaphylaxis Verified 12/08/23 20:32 grass pollen Allergy Severe Unknown Verified 12/08/23 20:32 Penicillins Allergy Severe Anaphylaxis Verified 12/08/23 20:32 Sulfa (Sulfonamide Allergy Unknown Other Verified 12/08/23 20:32 Antibiotics) mold Allergy Unknown Verified 12/08/23 20:32 pollen extracts Allergy Unknown Verified 12/08/23 20:32 erythromycin base AdvReac Severe Unknown Verified 12/08/23 20:32 lansoprazole [From Prevacid] AdvReac Severe Nausea/Vom/ Verified 12/08/23 20:32 Diarrhea adhesive tape AdvReac Intermediate Rash Verified 12/08/23 20:32 Family History Father Unknown family medical history Mother Uterine cancer Thyroid disorder Kidney disease Hypertension CHF (congestive heart failure) Arthritis Surgical History H/O breast biopsy H/O left mastectomy H/O lymph node biopsy History of cataract surgery History of colonoscopy (05/2019) History of dilation and curettage History of esophagogastroduodenoscopy (EGD) (05/2019) History of left heart catheterization (09/2012) History of radiofrequency ablation (RFA) procedure for cardiac arrhythmia (08/2013) History of removal of ovarian cyst Social History household members: spouse Smoking Status: Never smoker alcohol intake: current alcohol intake frequency: holidays/special occasions only substance use type: does not use caffeine: Yes what type of physical activity do you participate in: walking and yoga frequency: 3-4 times per week seatbelt use: always do you feel safe at home: Yes additional social history: -Tony Patient and are both retired ROS ROS ED Constitutional Constitutional ED: Reports fever(s) and subjective; Denies chills Eyes Eyes: Denies blurry vision or change in vision ENT ENT ED: Denies rhinorrhea or sore throat Cardiovascular Cardiovascular: Denies chest pain or palpitations Respiratory/Chest Respiratory/Chest: Denies cough or dyspnea Gastrointestinal Gastrointestinal: Denies nausea or vomiting Genitourinary Genitourinary ED: Denies dysuria or hematuria Musculoskeletal Musculoskeletal: Reports back pain and myalgias Integumentary Denies abscess or rash Neurologic Neurologic: Reports weakness; Denies headache(s) Allergic/Immunologic Allergic/Immunologic ED: Denies mouth swelling or urticaria EXAM Physical Exam Const Vital Signs: 12/08/23 20:29 12/08/23 20:34 Temperature 98.9 F Temperature Source Oral Pulse Rate 79 Respiratory Rate 16 Respiratory Effort Normal Blood Pressure 138/65 H Blood Pressure Mean 89 Pulse Ox 97 Oxygen Delivery Method Room Air Positive well nourished and well developed General Appearance ED: well developed and NAD HEENT Reports moist mucous membranes Neck supple and no JVD Resp normal respiratory effort and clear to auscultation bilaterally Cardio regular rate and regular rhythm GI non-tender and non-distended Palpation: soft Neuro oriented x3, CN's II-XII intact bilaterally and no sensory deficits noted Sensorium / Orientation: alert Motor Exam: strength 5/5 throughout Psych mental status grossly normal MDM MDM MDM Narrative Medical decision making narrative: Differential diagnosis includes viral illness, dehydration, electrolyte abnormality, urinary tract infection, and pneumonia. CBC will be obtained to assess for leukocytosis and anemia. Basic metabolic profile will be obtained to assess for electrolyte abnormality and renal function. Urinalysis will be obtained to assess for urinary tract infection. Chest x-ray will be obtained to assess for pneumonia. COVID-19, influenza, and RSV PCR will be obtained to assess for viral infection. Lab Data Attestation: I reviewed the patient's lab results. Lab results narrative: CBC was reviewed. White blood cell count was slightly low at 3.2. Hemoglobin was 11.3 and hematocrit was 33.6. Platelets were normal. Basic metabolic profile was reviewed. Sodium was slightly low at 130. This is consistent with prior results. The remainder was within normal limits. Urinalysis was reviewed. Leukocyte esterase was 500 with 50-100 white blood cells. There is 1+ bacteria. COVID-19 PCR was reviewed and was negative. Influenza PCR was reviewed and was negative for influenza A and influenza B. RSV PCR was reviewed and was negative. Labs: Laboratory Results - last 24 hr 12/08/23 12/08/23 21:25 21:30 WBC 3.2 L RBC 3.81 L Hgb 11.3 L Hct 33.6 L MCV 88.2 MCH 29.7 MCHC 33.6 RDW Std Deviation 48.4 H RDW Coeff of Idania 14.9 H Plt Count 221 MPV 9.0 Immature Gran % (Auto) 0.300 Neut % (Auto) 72.5 H Lymph % (Auto) 18.8 L [place] % (Auto) 7.2 Eos % (Auto) 0.9 Baso % (Auto) 0.3 Absolute Neuts (auto) 2.3 Absolute Lymphs (auto) 0.60 L Nucleated RBC % 0 Differential Comment SEE COMMENT Diff Path Review May foll Platelet Estimate ADEQUATE RBC Morphology N CHROM Anisocytosis RARE Macrocytosis RARE Ovalocytes RARE Sodium 130 L Potassium 3.9 Chloride 98 Carbon Dioxide 25.0 Anion Gap 7 BUN 15 Creatinine 0.85 Estim Creat Clear Calc 45.23 Est GFR (MDRD) Af Amer 83 Est GFR (MDRD) Non-Af 69 BUN/Creatinine Ratio 17.7 Glucose 114 H Calcium 8.2 L Urine Color Yellow Urine Clarity Cloudy Urine pH 5.0 Ur Specific [place] 1.015 Urine Protein 15 H Urine Glucose (UA) Normal Urine Ketones 5 H Urine Occult Blood 50 H Urine Nitrite Negative Urine Bilirubin Negative Urine Urobilinogen 1 H Ur Leukocyte Esterase 500 H Urine RBC 0-5 SEEN Urine WBC 50-100 SEEN Ur Squamous Epith Cells 0-5 SEEN Urine Bacteria 1+ Urine Mucus RARE Treatment and Re-Evaluation :: Patient was given IV fluids. Patient was advised of her findings. Urine culture was ordered. Patient was given a dose of Macrobid here. Patient was given a prescription for Macrobid. Patient was instructed to drink plenty of fluids. Patient was instructed to follow-up with her primary care physician in 5 to 7 days. Patient was instructed to return if worse in any way. Patient understood and was agreeable with the plan. All questions were answered. Discharge Plan Triage Chief Complaint: General Illness ED Provider: Mayur Tabares Dx/Rx/DC Orders Clinical Impression: Urinary tract infection, Hyponatremia Instructions: ED Cystitis Female Adult Prescriptions: New nitrofurantoin monohyd/m-cryst [nitrofurantoin monohyd/m-cryst] 100 mg capsule 100 mg PO Q12 Qty: 10 0RF No Action (DME) Bilaterl knee high compression stockings (10-20) See Rx Instructions .Route .MEDSUPPLY Qty: 2 0RF Rx Instructions: As directed calcium carbonate 600 mg calcium (1,500 mg) tablet 600 mg PO DAILY magnesium oxide 400 mg (241.3 mg magnesium) tablet 400 mg PO DAILY Qty: 90 3RF fludrocortisone 0.1 mg tablet 0.05 mg .ROUTE .COMPLEX Qty: 8 5RF Rx Instructions: Take 1/2 tablet po every Thursday, Thursday and Thursday cholecalciferol (vitamin D3) 10 mcg (400 unit) capsule 2,000 unit PO DAILY meclizine 25 mg tablet 25 mg PO TID PRN (Reason: dizziness) 3 Days Qty: 9 0RF metoclopramide HCl [Reglan] 10 mg tablet 10 mg PO Q6H PRN (Reason: nausea and vomiting) 3 Days Qty: 18 0RF clobetasol 0.05 % cream 1 applic TOPICAL .COMPLEX Qty: 15 0RF Rx Instructions: 1 applic TOPICAL apply thin layer as directed bid X 2 weeks then daily X 2 weeks; apply thin layer; massage in to cover area esomeprazole magnesium 40 mg capsule,delayed release(DR/EC) See Rx Instructions .ROUTE .COMPLEX Qty: 90 3RF Dose Instruction: take 1 capsule by mouth daily Rx Instructions: take 1 capsule by mouth daily metoprolol succinate 25 mg tablet extended release 24 hr 25 mg PO .COMPLEX Qty: 135 3RF Rx Instructions: 1/2 tablet (12.5 mg) in the morning and a whole tablet (25 mg) at bedtime apixaban 5 mg tablet 5 mg PO BID Qty: 60 11RF dofetilide 250 mcg capsule See Rx Instructions .ROUTE .COMPLEX Qty: 180 3RF Dose Instruction: TAKE 1 CAPSULE EVERY 12 HOURS FOR ATRIAL FIBRILLATION Rx Instructions: TAKE 1 CAPSULE EVERY 12 HOURS FOR ATRIAL FIBRILLATION Primary Care Provider: Rochelle Brandt Referrals: Rochelle Brandt MD [Primary Care Provider] - 5-7 Days Disposition Disposition: Home, Self Care
[2023-12-08 21:35] LABS: Color, Urine Yellow (Yellow); Glucose, Dipstick Normal (Normal); Ketone-Dipstick 5 mg/dl (Negative); Leukocyte Esterase-Dipstick 500 /ul (Negative); Nitrite-Dipstick Negative (Negative); Occult Blood-Urine 50 /ul (Negative); Protein-Dipstick 15 mg/dl (Negative); Specific Gravity, Urine 1.015 (1.002-1.030); Urine Bilirubin Dipstick Negative (Negative); Urine Clarity Cloudy (Clear); Urine Urobilinogen 1 mg/dl (Normal)
[2023-12-08 21:38] LABS: Absolute Neutrophil Count 2.3 X10^3/uL (2.0-7.7); Basophil# 0.01 X10^3/uL; Basophil% 0.3 % (0-1); Eosinophil# 0.03 X10^3/uL; Eosinophils% 0.9 % (0-5); Hematocrit 33.6 % (37-47); Hemoglobin 11.3 g/dL (12.0-15.0); Lymphocyte % 18.8 % (19-41); Mean Corp Hgb Conc 33.6 g/dL (32-36); Mean Corpuscular Hgb 29.7 pg (27.0-32.0); Mean Corpuscular Volume 88.2 fL (81-99); Monocyte# 0.23 X10^3/uL; Monocyte% 7.2 % (0-10); NRBC Flagged by Analyzer 0 % (0-5); Neutrophil # 2.31 X10^3/uL (2.7-7.7); Neutrophil % 72.5 % (47-70); POSITIVE DIFFERENTIAL YES; Platelet Count 221 K/mm3 (150-450); RBC Distribution Width CV 14.9 % (11.6-14.6); RBC Distribution Width SD 48.4 fl (35.1-43.9); Red Blood Count 3.81 M/mm3 (4.2-5.4); White Blood Count 3.2 K/mm3 (4.4-11.0)
[2023-12-08 21:39] LABS: Differential Indicated SCAN CRITERIA MET
[2023-12-08] MEDS: 0.9% Normal Saline (1000mL) 1,000 ML 1000 ML IV (21:39)
[2023-12-08 21:42] LABS: White Blood Cells 50-100 SEEN /hpf (0-5)
[2023-12-08 21:43] LABS: Bacteria 1+ /hpf (None Seen); Red Blood Cells-Urine 0-5 SEEN /hpf (0-5); Squamous Epithelial Cells - UA 0-5 SEEN /hpf (5-10)
--- NOTE | 2023-12-08 21:43 | RAD_ITS ---
INDICATION: Weakness EXAMINATION/TECHNIQUE: X-RAY - XR Chest 2 Views COMPARISON: April 08, 2023 chest x-ray. FINDINGS: LINES/DEVICES: None. LUNGS: Increased lung volumes with flattening of the diaphragm indicating air trapping. Lucency in the lungs and increased prominence of interstitial markings consistent with this emphysematous changes. There is some left apical pleural scarring/thickening, unchanged compared to prior exam. No consolidation, mass, evidence of fibrosis, pleural effusion or pneumothorax. MEDIASTINUM AND CARDIOVASCULAR STRUCTURES: Pulmonary arteries appear mildly prominent suggesting possible pulmonary hypertension. Heart is normal size. BONES AND SOFT TISSUES: Mild lateral curvature, convex left, distal thoracic spine. Surgical clips left axilla and absent left breast shadow suggesting prior mastectomy. RAD/Chest PA and Lateral IMPRESSION: 1. Advanced emphysematous changes. This can be an independent risk factor for lung cancer. 2. Chronic left apical pulmonary scarring. 3. Prominent pulmonary arteries suspicious for pulmonary hypertension. Electronically Signed: Colt Angulo DO at 23:16 EDT ,
[2023-12-08 21:44] LABS: Mucous, Urine RARE /hpf (<or=2+)
[2023-12-08 21:50] LABS: Anion Gap 7 (5-15); BUN 15 mg/dL (7-18); BUN/Creat Ratio 17.7 RATIO (10-20); Calcium,Total 8.2 mg/dL (8.5-10.1); Chloride 98 mmol/L (98-107); Creatinine, Serum 0.85 mg/dL (0.55-1.02); EST Glomerular Filtration Rate 69 mL/min (>60); Est Glom Filt Rate - Afr Amer 83 mL/min (>60); Estimated Creatinine Clearance 45.23 ml/min; Glucose 114 mg/dL (74-106); Potassium 3.9 mmol/L (3.5-5.1); Sodium Level 130 mmol/L (136-145)
[2023-12-08 22:08] LABS: Platelet Estimate ADEQUATE (ADEQ); Red Cell Morphology N CHROM NORMAL (NORM C&C)
[2023-12-08 22:10] LABS: Anisocytosis RARE; Macrocytosis RARE; Ovalocyte RARE
[2023-12-08 22:43] VITALS: BP 137/57; PULSE 70; RESP 16; O2SAT 97
[2023-12-08] MEDS: Nitrofurantoin Macrocrystals 100 MG Capsule PO (22:45)
[2023-12-08 22:48] VITALS: BP 137/57; PULSE 70; RESP 17; TEMP 37.1; O2SAT 97
[2023-12-09 16:26] LABS: Pathologist Review Reviewed
== END 2023-12-08 22:49 | disposition home or self-care (01) ==
PROVIDERS: Emergency Provider Emergency Medicine; PCP Internal Medicine; Visit Provider Emergency Medicine
DX: N39.0 Urinary tract infection, site not specified (principal); I48.0 Paroxysmal atrial fibrillation; E87.1 Hypo-osmolality and hyponatremia; Z79.01 Long term (current) use of anticoagulants; Z86.16 Personal history of COVID-19; Z86.73 Personal history of transient ischemic attack (TIA), and cerebral infarction without residual deficits
CPT/HCPCS: 71046; 80048; 81001; 85025; 87086; 87088; 87631; 96360; 99283; J7030; A4216

== ENCOUNTER → 2023-12-18 | Outpatient (CLI) | payer MEDICARE, OTHER, SELFPAY ==
[2023-12-18 11:56] LABS: Anion Gap 5 (5-15); BUN 16 mg/dL (7-18); BUN/Creat Ratio 19.9 RATIO (10-20); Calcium,Total 8.8 mg/dL (8.5-10.1); Chloride 101 mmol/L (98-107); EST Glomerular Filtration Rate 73 mL/min (>60); Est Glom Filt Rate - Afr Amer 88 mL/min (>60); Glucose 85 mg/dL (74-106); Potassium 4.1 mmol/L (3.5-5.1); Sodium Level 134 mmol/L (136-145)
== END | disposition home or self-care (01) ==
LOC: LAB 10:36
PROVIDERS: PCP Internal Medicine; Referring Provider Internal Medicine Nephrology; Visit Provider Internal Medicine Nephrology
DX: E22.2 Syndrome of inappropriate secretion of antidiuretic hormone (principal)
CPT/HCPCS: 36415; 80048

== ENCOUNTER 2023-12-30 14:00 | Outpatient (RCR) | payer MEDICARE, OTHER, SELFPAY ==
--- NOTE | 2023-11-02 10:04 | HP.PTREVAL ---
Re-Evaluation Intro: Dr. Erick Blanca MD, It has been my pleasure to treat JULIANNA TUCKER over the last 12 visits for Sarcopenia. Please see the progress note below for an update on the physical therapy plan of care! Subjective Subjective: this has made a big difference. I feel so much stronger Objective Objective/Function: B LE strength is 4-/5 throughout TU.79 sec FGA: /30 Pt has made significant gains with balance, but still lacks functional strength. Plan Plan Plan: Continue with balance and B LE strengthening at this time Balance/Gait/Functional tests Balance/Special Test Scores Functional Gait Assessment Score: 22 % Disability: 26.6700 Lower Extremity Functional Score: 41 Goals Goals Goal 1:: Decrease TUG test score to 8 seconds to aid with community efficiency. Goal Time Frame: 4-6 Weeks Goal Progress: Progressing Goal 2:: Increase FGA score x 3-5 points to aid with preventing future falls. Goal Time Frame: 4-6 Weeks Goal Progress: Goal Met Goal 3:: Increase B LE strength x 1 grade to aid with increased standing tolerance Goal Time Frame: 4-6 Weeks Goal Progress: Progressing Goal 4:: I with HEP Goal Time Frame: 4-6 Weeks Goal Progress: Progressing Anticipated Interventions Anticipated Interventions Patient/Client Instruction: Educate patient on: Condition and Plan of Care For the Purpose of:: To improve self management Therapeutic Exercise to Include: Strength training, Endurance training, Balance training, Gait and locomotor training, Active ROM and Dynamic Lumbar Stabilization For the Purpose of:: To decrease pain, To improve muscle performance and motor function and To increase tolerance to activity/condition/position Re-Evaluation Ending Re-evaluation ending: Please do not hesitate to contact me at [phone] by phone or if you have questions or concerns regarding this new plan of care! Sincerely, Ptio Davis, PT, ATC
--- NOTE | 2023-11-02 10:05 | HP.PTEVAL_ITS ---
Patient's Visit Information Visit Information Visit Information: JULIANNA TUCKER is a 83 year old F referred to Physical Therapy by Dr. Erick Blanca MD with a diagnosis of Sarcopenia. Date of Evaluation: 09/30/23 Physical Therapist: Pito Davis, PT, ATC Visit Plan Frequency: 2-3x /Week Duration: 4-6 Weeks Plan: Continue with balance and B LE strengthening at this time Subjective Subjective: Pt reports she has been becoming more weak throughout her body for a period of time. Pt notes she has noticed progressive weakness and difficulty with balance over the past several months. Pt also notes she has been battling a balance deficiency since when she was a child. Pt reports she loses her balance a lot, but has had no Hx of falls. Pt reports she feels unbalanced all the time, like her body and her brain are not intertwined. Pt reports she used to go on walks all the time, and perform gardening duties that she is unable to do now. P t reports she has difficulty with standing for a long period of time, which makes it difficult to wash dishes at home. Pt reports she has R knee pain which she has had x-rays for that revealed OA. Pt reports she has stairs at home, which she has to negotiate one step at a time. Pt reports she is not in any pain while sitting here in the clinic today, but reports she is aware something is wrong. Pain Right Knee: Pain Intensity (Out of 10): 4 Comment: on nustep. doing nothing is 0-1 Objective Objective: Neuro: B LE sensation is WNL to light touch. B patellar reflex= 2/3 MMT: B LE's are grossly 4-/5 throughout. Stairs: Pt is able to negotiate one flight of stairs but must use 2 handrails FGA: 18/20- Mild risk of falling TU.23 sec Balance/Special Test Scores Functional Gait Assessment Score: 22 % Disability: 26.6700 Lower Extremity Functional Score: 41 Goals Goal 1:: Decrease TUG test score to 8 seconds to aid with community efficiency. Goal Time Frame: 4-6 Weeks Goal 2:: Increase FGA score x 3-5 points to aid with preventing future falls. Goal Time Frame: 4-6 Weeks Goal 3:: Increase B LE strength x 1 grade to aid with increased standing tolerance Goal Time Frame: 4-6 Weeks Goal 4:: I with HEP Goal Time Frame: 4-6 Weeks Rehabilitation Potential Physical Therapy Diagnosis: Pt has LE weakness, decreased balance, and difficulty with stair negotiation secondary to debilitation Rehabilitation Potential: Good Anticipated Interventions Patient/Client Instruction: Educate patient on: Condition and Plan of Care For the Purpose of:: To improve self management Therapeutic Exercise to Include: Strength training, Endurance training, Balance training, Gait and locomotor training, Active ROM and Dynamic Lumbar Stabilization For the Purpose of:: To decrease pain, To improve muscle performance and motor function and To increase tolerance to activity/condition/position Text: Thank you for the opportunity to evaluate your patient. For Medicare and Medicare HMO plans, please review the plan of care and approve it. It will need to be FAXED BACK to us at [phone] for Medicare purposes. For Medicare only, by signing this I certify the plan of care. Please let me know if there are questions or concerns regarding this plan of care. Physician Signature: Date:
--- NOTE | 2023-12-02 10:09 | HP.PTREVAL ---
Re-Evaluation Intro: Dr. Erick Blanca MD, It has been my pleasure to treat JULIANNA TUCKER over the last 18 visits for Sarcopenia. Please see the progress note below for an update on the physical therapy plan of care! Subjective Subjective: My R hip, shoulder, hand, and knee are all sore. Objective Objective/Function: B LE strength is 4-/5 throughout TU.05 FGA: 22/30 Pt has made significant gains with balance, but still lacks functional strength Plan Plan Plan: Continue with balance and B LE strengthening at this time Balance/Gait/Functional tests Balance/Special Test Scores Functional Gait Assessment Score: 23 % Disability: 23.3400 Lower Extremity Functional Score: 38 Goals Goals Goal 1:: Decrease TUG test score to 8 seconds to aid with community efficiency. Goal Time Frame: 4-6 Weeks Goal Progress: Progressing Goal 2:: Increase FGA score x 3-5 points to aid with preventing future falls. Goal Time Frame: 4-6 Weeks Goal Progress: Goal Met Goal 3:: Increase B LE strength x 1 grade to aid with increased standing tolerance Goal Time Frame: 4-6 Weeks Goal Progress: Progressing Goal 4:: I with HEP Goal Time Frame: 4-6 Weeks Goal Progress: Progressing Anticipated Interventions Anticipated Interventions Patient/Client Instruction: Educate patient on: Condition and Plan of Care For the Purpose of:: To improve self management Therapeutic Exercise to Include: Strength training, Endurance training, Balance training, Gait and locomotor training, Active ROM and Dynamic Lumbar Stabilization For the Purpose of:: To decrease pain, To improve muscle performance and motor function and To increase tolerance to activity/condition/position Re-Evaluation Ending Re-evaluation ending: Please do not hesitate to contact me at [phone] by phone or if you have questions or concerns regarding this new plan of care! Sincerely, Pito Davis, PT, ATC
--- NOTE | 2024-01-01 10:02 | HP.PTDCSUM ---
Discharge Summary D/C summary: It has been my pleasure to treat JULIANNA TUCKER referred by Dr. Erick Blanca MD, with the diagnosis of Sarcopenia for a total of 29 visit(s). Discharge Date: Please see the following information for a summary of their discharge status. Subjective Subjective: I am a lot better now. I feel like I will always have some balance concerns, but I am more steady now Pain Right Knee: Pain Intensity (Out of 10): 2 Right Hip: Pain Intensity (Out of 10): 2 Overall Improvement % Improvement: 70 Objective Objective/Function: TU seconds FGA: MMT: B hip flex and knee flex= 4/5. All other measurements 01/16 Pt is now I with HEP Goals Goal 1:: Decrease TUG test score to 8 seconds to aid with community efficiency. Goal Progress: Goal Met Goal 2:: Increase FGA score x 3-5 points to aid with preventing future falls. Goal Progress: Goal Met Goal 3:: Increase B LE strength x 1 grade to aid with increased standing tolerance Goal Progress: Goal Met Goal 4:: I with HEP Goal Progress: Goal Met Plan Plan: Discharge to HEP D/C Information d/c sentence: If there are questions or concerns regarding this patient's physical therapy, please feel free to call me at [phone]. Thank you for the referral of this patient. Sincerely, Pito Davis, PT, ATC Balance/Gait/Functional tests Balance/Special Test Scores Functional Gait Assessment Score: 24 % Disability: 20.0000 Lower Extremity Functional Score: 49 Improvement % Improvement: 70
== END 2023-12-30 19:00 | disposition home or self-care (01) ==
LOC: PT 14:00
PROVIDERS: PCP Internal Medicine; Visit Provider Psychiatry & Neurology Neurology
DX: M62.84 Sarcopenia (principal); G62.9 Polyneuropathy, unspecified
CPT/HCPCS: 97110; 97112; 97116; 97161

== ENCOUNTER 2024-01-23 14:05 | Emergency (ER) | payer MEDICARE, OTHER, SELFPAY ==
[2024-01-23 14:06] VITALS: BP 204/99; PULSE 84; RESP 16; TEMP 35.7; O2SAT 96; BMI 18.5
--- NOTE | 2024-01-23 14:21 | ED.VIS.GI ---
HPI HPI - GI History of Present Illness Chief Complaint: Nausea/Vomiting Informant: patient and spouse/S.O. Abdominal Pain/Flank Pain Onset: Today Context: Gradual Onset Timing: Continuous Quality: Burning Current Severity: Mild Maximum Severity: Mild Worsened by: Nothing Nausea/Vomiting/Emesis GI Symptom: Positive for Nausea and Vomiting Onset: Today Quality: Positive for Nonbilious Severity: Mild Diarrhea/Melena/Hematochezia GI Symptom: Negative for Diarrhea, Melena or Hematochezia Associated Symptoms Associated Symptoms: Negative for Dysuria, Frequency, Hematuria or Urgency Narrative Narrative: 83-year-old female history of adrenal insufficiency, a flutter, irritable bowel. Patient states she has these episodes frequently where she gets nausea and vomiting gets dehydrated. Often her sodium will drop with it. She has had them many times. Today it began around 10 AM. She denies any fever. No dysuria. Was treated for UTI several weeks ago is currently off antibiotics and having no symptoms. No diarrhea or melena. Really no abdominal pain and some burning and some mild cramping. She had a prior ovarian cyst removed years ago and her appendix. Prior similar symptoms: Yes Recent Illness/Hospitalization: Yes [facility] Medical History (Updated 01/23/24 @ 16:[address] 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) Breast pain, right Chronic diarrhea Chronic hyponatremia Compression fracture of L1 lumbar vertebra COVID-19 Diverticulitis GERD (gastroesophageal reflux disease) History of atrial flutter history of blood transfusion History of breast cancer IBS (irritable bowel syndrome) Lichen sclerosus Migraine Motion sickness Nonrheumatic mitral (valve) prolapse Osteopenia Osteopenia 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 Ovarian cyst Paroxysmal atrial fibrillation Paroxysmal atrial flutter SIADH (syndrome of inappropriate ADH production) TIA (transient ischemic attack) Home Medications Bilaterl knee high compression stockings (10-20) #2 ea 05/29/22 [Rx Last Taken Unknown] clobetasol 0.05 % topical cream 1 applic topical .COMPLEX #15 grams 08/05/22 [Rx Last Taken Unknown] calcium carbonate 600 mg PO DAILY 10/14/22 [History Last Taken Unknown] cholecalciferol (vitamin D3) 10 mcg (400 unit) capsule 2,000 unit PO DAILY supplement 10/14/22 [History Last Taken Unknown] esomeprazole magnesium 40 mg capsule,delayed release See Rx Instructions .Route .COMPLEX #90 caps 12/18/22 [Rx Last Taken Unknown] metoclopramide HCl 10 mg tablet (Reglan) 10 mg PO Q6H PRN nausea and vomiting 3 days #18 tabs 04/25/23 [Rx Last Taken Unknown] apixaban 5 mg tablet 5 mg PO BID #60 tabs 07/23/23 [Rx Last Taken Unknown] meclizine 25 mg tablet 25 mg PO TID PRN dizziness 3 days #9 tabs 08/29/23 [Rx Last Taken Unknown] fludrocortisone 0.1 mg tablet 0.05 mg (1/2 x 0.1 mg) .Route .COMPLEX #8 tabs 09/22/23 [Rx Last Taken Unknown] dofetilide 250 mcg capsule See Rx Instructions .Route .COMPLEX #180 caps 10/12/23 [Rx Last Taken Unknown] cranberry 500 mg capsule 500 mg PO BID 01/18/24 [History Last Taken Unknown] magnesium oxide 400 mg (241.3 mg magnesium) tablet 400 mg PO DAILY #90 tabs 01/21/24 [Rx Last Taken Unknown] metoprolol succinate 25 mg tablet,extended release 24 hr 25 mg PO .COMPLEX #135 tabs 01/21/24 [Rx Last Taken Unknown] ondansetron 4 mg disintegrating tablet 4 mg PO Q8H PRN PRN Nausea #10 tabs 01/23/24 [Rx Last Taken Unknown] Allergy/AdvReac Type Severity Reaction Status Date / Time cantaloupe Allergy Severe Anaphylaxis Verified 01/23/24 14:08 grass pollen Allergy Severe Unknown Verified 01/23/24 14:08 Penicillins Allergy Severe Anaphylaxis Verified 01/23/24 14:08 Sulfa (Sulfonamide Allergy Unknown Other Verified 01/23/24 14:08 Antibiotics) mold Allergy Unknown Verified 01/23/24 14:08 pollen extracts Allergy Unknown Verified 01/23/24 14:08 erythromycin base AdvReac Severe Unknown Verified 01/23/24 14:08 lansoprazole [From Prevacid] AdvReac Severe Nausea/Vom/ Verified 01/23/24 14:08 Diarrhea adhesive tape AdvReac Intermediate Rash Verified 01/23/24 14:08 Family History Father Unknown family medical history Mother Uterine cancer Thyroid disorder Kidney disease Hypertension CHF (congestive heart failure) Arthritis Surgical History H/O breast biopsy H/O left mastectomy H/O lymph node biopsy History of cataract surgery History of colonoscopy (05/2019) History of dilation and curettage History of esophagogastroduodenoscopy (EGD) (05/2019) History of left heart catheterization (09/2012) History of radiofrequency ablation (RFA) procedure for cardiac arrhythmia (08/2013) History of removal of ovarian cyst Social History household members: spouse Smoking Status: Never smoker alcohol intake: current alcohol intake frequency: holidays/special occasions only substance use type: does not use caffeine: Yes what type of physical activity do you participate in: walking and yoga frequency: 3-4 times per week seatbelt use: always do you feel safe at home: Yes additional social history: -Tony Patient and are both retired ROS ROS ED ROS Narrative Nausea and vomiting. No diarrhea. No fever. Review of Systems ROS Unobtainable: Denies due to encephalopathy Constitutional Constitutional ED: Denies chills or fever(s) ENT ENT ED: Denies ear pain Cardiovascular Cardiovascular: Denies chest pain Respiratory/Chest Respiratory/Chest: Denies cough or dyspnea Gastrointestinal Gastrointestinal: Reports abdominal pain, nausea and vomiting; Denies constipation, diarrhea or melena Genitourinary Genitourinary ED: Denies dysuria or hematuria Musculoskeletal Musculoskeletal: Denies arthralgias or back pain Integumentary Denies abscess or Abrasions Neurologic Neurologic: Denies headache(s) Endocrine Endocrinology: Denies polydipsia Hematologic/Lymphatic Hematologic/Lymphatic: Denies easy bleeding Allergic/Immunologic Allergic/Immunologic ED: Denies mouth swelling, tongue swelling or urticaria EXAM Physical Exam Narrative Exam Narrative: 83-year-old female vital signs stable afebrile. Does not look septic toxic. No distress. at bedside. H EENT exam unremarkable. Moist mucous membranes. Pupils round react light. No facial droop. Normal speech. No trauma. Neck nontender. No lymphadenopathy. Lungs clear to auscultation bilaterally. Heart regular rhythm rate about 80 no murmur. Chest wall and ribs nontender. Abdomen soft, nontender, nondistended normal bowel sounds without peritoneal signs. No signs of obstruction. No distention. Soft. No localizing tenderness. No hernia or mass. Moving all 4 extremities. Nontender no edema. Normal cigarette catcher strength. Neurologically she is awake alert no focal motor deficits Const Vital Signs: 01/23/24 14:06 01/23/24 14:30 Temperature 96.2 F L Temperature Source Temporal Pulse Rate 84 Respiratory Rate 16 Blood Pressure 204/99 H 205/93 H Blood Pressure Mean 134 122 Pulse Ox 96 98 Oxygen Delivery Method Room Air Positive well nourished and well developed; Negative for obese, cachectic, contractures or unkempt General Appearance ED: well developed and NAD; Negative for unkempt, cachectic, contractures or pallor Nutritional Appearance: Negative for cachectic or obese HEENT Reports moist mucous membranes; Denies dry mucous membranes normocephalic and atraumatic; Negative for trauma or tenderness Mouth ED: No dry mucous membranes Mouth: No dry mucous membranes Eyes PERRL and EOMs intact bilaterally General Eye ED: Negative for pale conjunctiva, scleral icterus or other Neck no lymphadenopathy, supple and no JVD General: Negative for tenderness Carotids: Negative for other Lymph Lymphatic: Negative for other Resp normal respiratory effort and clear to auscultation bilaterally Effort and Inspection: Negative for respiratory distress Auscultation: Negative for rales, rhonchi or wheezes Cardio regular rate, regular rhythm, S1 normal heart sound, S2 normal heart sound and no murmurs Rate: Negative for bradycardia or tachycardic Rhythm: Negative for abnormal rhythm GI non-tender, non-distended and no masses Inspection: Negative for abdominal distention Auscultation: normoactive bowel sounds Palpation: soft; Negative for tender, guarding, rigid, hepatomegaly, splenomegaly, hernia, mass, pulsatile mass or rebound tenderness present Back/Spine no CVA tenderness General Back: Negative for CVA tenderness Cervical Spine: Negative for cervical spine tenderness Thoracic Spine / Upper Back: Negative for thoracic spinal tenderness Lumbar Spine / Lower Back: Negative for lumbar spinal tenderness Coccyx: Negative for other Extremity full ROM General Extremety ED: Negative for edema, tenderness or other findings General Extremity: Negative for edema or other findings Neuro CN's II-XII intact bilaterally, moves all extremities and no sensory deficits noted Sensorium / Orientation: alert, oriented to person, oriented to place and oriented to time; Negative for orientation impaired, confused, lethargic or stuporous Motor Exam: strength 5/5 throughout; Negative for general weakness or strength abnormal Psych mental status grossly normal and thought process normal Appearance: Negative for unkempt Attitude: No agitated Mood & Affect: Negative for depressed, anxious or tearful Skin no wounds General Skin Exam: Negative for jaundice or pallor Lesions: no lesions Rashes: no rashes Trauma: Negative for abrasion or other Nails: Negative for discolored MDM MDM MDM Narrative Medical decision making narrative: 83-year-old female with nausea and vomiting. Treated with IV fluids. IV Zofran. She does not need any pain medication. I do not think she needs any imaging. Her abdomen is benign and soft. There is no localizing tenderness or signs of obstruction. Screening labs to be obtained because she has had low sodium with this before. Repeat exam patient still having some nausea show given a dose of Reglan. She is obviously anxious. I offered her anxiety meds and she did not want anything. Her abdomen remains benign. Heart is regular rhythm. Her lungs are clear. Her exam is benign. Repeat exam patient is feeling better after her Reglan and at 4:05 PM. Abdomen remains benign. She is comfortable being discharged home. Outpatient follow-up or return if worse. History & Record Review Discussion w/independent historian: Patient Additional record(s) reviewed:: Prior inpatient record, Prior outpatient record, Prior ED visit, Prior labs and No prior records Lab Data Attestation: I reviewed the patient's lab results. Lab results narrative: CBC showed white count 5. H&H 11.6 and 34. History of anemia. Platelets 286. Electrolytes show sodium 128. Gap 9. Normal BUN 17 creatinine 0.8. Glucose 141. History of hyponatremia. Labs: Laboratory Results - last 24 hr 01/23/24 14:25 WBC 5.0 RBC 3.97 L Hgb 11.6 L Hct 34.7 L MCV 87.4 MCH 29.2 MCHC 33.4 RDW Std Deviation 46.9 H RDW Coeff of Idania 14.6 Plt Count 286 MPV 9.0 Immature Gran % (Auto) 0.200 Neut % (Auto) 63.4 Lymph % (Auto) 30.0 Taliaferro % (Auto) 5.2 Eos % (Auto) 0.4 Baso % (Auto) 0.8 Absolute Neuts (auto) 3.2 Absolute Lymphs (auto) 1.51 Nucleated RBC % 0 Sodium 128 L Potassium 3.5 Chloride 94 L Carbon Dioxide 25.0 Anion Gap 9 BUN 17 Creatinine 0.85 Estim Creat Clear Calc 43.88 Est GFR (MDRD) Af Amer 83 Est GFR (MDRD) Non-Af 68 BUN/Creatinine Ratio 20.0 Glucose 141 H Calcium 9.0 Rhythm Strip Rhythm Strip: Sinus Rhythm Rate: 83 Ectopy: None EKG Initial EKG: Attestation: I personally reviewed and interpreted this EKG as follows: Interpretation: Sinus Rhythm Comments: Normal sinus rhythm rate 83. Incomplete right bundle branch block. First-degree AV block MT interval 234. Discharge Plan Triage Chief Complaint: Nausea/Vomiting ED Provider: Vinh Colon Dx/Rx/DC Orders Clinical Impression: History of adrenal insufficiency, Anxiety, History of atrial flutter, Nausea & vomiting Instructions: ED Vomiting (Adult) Prescriptions: New ondansetron 4 mg tablet,disintegrating 4 mg PO Q8H PRN PRN (Reason: Nausea) Qty: 10 0RF No Action (DME) Bilaterl knee high compression stockings (10-20) See Rx Instructions .Route .MEDSUPPLY Qty: 2 0RF Rx Instructions: As directed calcium carbonate 600 mg calcium (1,500 mg) tablet 600 mg PO DAILY fludrocortisone 0.1 mg tablet 0.05 mg .ROUTE .COMPLEX Qty: 8 5RF Rx Instructions: Take 1/2 tablet po every Thursday, Thursday and Thursday cranberry 500 mg capsule 500 mg PO BID Rx Instructions: administer with meals cholecalciferol (vitamin D3) 10 mcg (400 unit) capsule 2,000 unit PO DAILY meclizine 25 mg tablet 25 mg PO TID PRN (Reason: dizziness) 3 Days Qty: 9 0RF metoclopramide HCl [Reglan] 10 mg tablet 10 mg PO Q6H PRN (Reason: nausea and vomiting) 3 Days Qty: 18 0RF clobetasol 0.05 % cream 1 applic TOPICAL .COMPLEX Qty: 15 0RF Rx Instructions: 1 applic TOPICAL apply thin layer as directed bid X 2 weeks then daily X 2 weeks; apply thin layer; massage in to cover area esomeprazole magnesium 40 mg capsule,delayed release(DR/EC) See Rx Instructions .ROUTE .COMPLEX Qty: 90 3RF Dose Instruction: take 1 capsule by mouth daily Rx Instructions: take 1 capsule by mouth daily apixaban 5 mg tablet 5 mg PO BID Qty: 60 11RF dofetilide 250 mcg capsule See Rx Instructions .ROUTE .COMPLEX Qty: 180 3RF Dose Instruction: TAKE 1 CAPSULE EVERY 12 HOURS FOR ATRIAL FIBRILLATION Rx Instructions: TAKE 1 CAPSULE EVERY 12 HOURS FOR ATRIAL FIBRILLATION magnesium oxide 400 mg (241.3 mg magnesium) tablet 400 mg PO DAILY Qty: 90 3RF metoprolol succinate 25 mg tablet extended release 24 hr 25 mg PO .COMPLEX Qty: 135 3RF Rx Instructions: 1/2 tablet (12.5 mg) in the morning and a whole tablet (25 mg) at bedtime Primary Care Provider: Rochelle Brandt Referrals: Rochelle Brandt MD [Primary Care Provider] - 1-2 Days if not improving Activity Restrictions/Additional Instructions: Plenty of fluids and rest. Increase diet slowly as tolerated. Follow-up with your doctor as needed. Return if worse. Zofran as needed for nausea. Disposition Disposition: Home, Self Care
[2024-01-23] MEDS: Ondansetron 4 MG/2 ML Vial IV (14:25)
[2024-01-23] MEDS: 0.9% Normal Saline (1000mL) 1,000 ML 1000 ML IV (14:25)
[2024-01-23 14:30] VITALS: BP 205/93; O2SAT 98
[2024-01-23 14:32] LABS: Absolute Lymphocyte Count 1.51 X10^3/uL (0.83-4.51); Absolute Neutrophil Count 3.2 X10^3/uL (2.0-7.7); Basophil# 0.04 X10^3/uL; Basophil% 0.8 % (0-1); Eosinophil# 0.02 X10^3/uL; Eosinophils% 0.4 % (0-5); Hematocrit 34.7 % (37-47); Hemoglobin 11.6 g/dL (12.0-15.0); Lymphocyte # 1.51 X10^3/ul (0.83-4.51); Mean Corp Hgb Conc 33.4 g/dL (32-36); Mean Corpuscular Hgb 29.2 pg (27.0-32.0); Mean Corpuscular Volume 87.4 fL (81-99); Monocyte# 0.26 X10^3/uL; Monocyte% 5.2 % (0-10); NRBC Flagged by Analyzer 0 % (0-5); Neutrophil % 63.4 % (47-70); Platelet Count 286 K/mm3 (150-450); RBC Distribution Width CV 14.6 % (11.6-14.6); RBC Distribution Width SD 46.9 fl (35.1-43.9); Red Blood Count 3.97 M/mm3 (4.2-5.4)
[2024-01-23 14:47] LABS: Anion Gap 9 (5-15); BUN 17 mg/dL (7-18); Chloride 94 mmol/L (98-107); Creatinine, Serum 0.85 mg/dL (0.55-1.02); EST Glomerular Filtration Rate 68 mL/min (>60); Est Glom Filt Rate - Afr Amer 83 mL/min (>60); Estimated Creatinine Clearance 43.88 ml/min; Glucose 141 mg/dL (74-106); Potassium 3.5 mmol/L (3.5-5.1); Sodium Level 128 mmol/L (136-145)
[2024-01-23] MEDS: Metoclopramide 10 MG/2 ML Vial 5 MG IV (15:57)
[2024-01-23 16:06] VITALS: BP 172/87; PULSE 80; RESP 18; TEMP 36.7; O2SAT 96
== END 2024-01-23 16:19 | disposition home or self-care (01) ==
PROVIDERS: Emergency Provider Emergency Medicine; PCP Internal Medicine; Visit Provider Emergency Medicine
DX: E27.40 Unspecified adrenocortical insufficiency (principal); I48.92 Unspecified atrial flutter; R11.2 Nausea with vomiting, unspecified; F41.9 Anxiety disorder, unspecified; K21.9 Gastro-esophageal reflux disease without esophagitis
CPT/HCPCS: 80048; 85025; 93005; 96361; 96374; 96375; 99282; J7030; A4216; J2405

== ENCOUNTER → 2024-03-08 | Outpatient (CLI) | payer MEDICARE, OTHER, SELFPAY ==
[2024-03-08 12:53] LABS: Sodium Level 127 mmol/L (136-145)
== END | disposition home or self-care (01) ==
LOC: LAB 10:48
PROVIDERS: PCP Internal Medicine; Referring Provider Psychiatry & Neurology Neurology; Visit Provider Psychiatry & Neurology Neurology
DX: E87.1 Hypo-osmolality and hyponatremia (principal)
CPT/HCPCS: 36415; 84295

== ENCOUNTER → 2024-05-31 | Outpatient (CLI) | payer MEDICARE, OTHER, SELFPAY ==
--- NOTE | 2024-05-31 13:03 | BI_ITS ---
MAMMOGRAPHY - UNILATERAL SCREENING: RIGHT BREAST REASON FOR EXAM: Female, 84 years old. Routine annual screening examination (unilateral). PERTINENT HISTORY: Personal history of breast cancer. Prior left mastectomy. Sister with breast cancer. TECHNIQUE: Digital unilateral breast nilton (3D mammographic acquisition) in the CC and MLO projections. 2-D mediolateral oblique (MLO) and craniocaudad (CC) views of both breasts were obtained. CAD: Full Field Digital Mammography with Computer Added Detection was performed. COMPARISON: Comparison is made with prior study dated May 21, 2023 and May 14, 2022. FINDINGS: Breast Composition: There are scattered areas of fibroglandular density. There are no dominant masses or suspicious calcifications. No other significant abnormalities are identified. There has been no significant change since the prior study. BI/SCREEN MAMM (CAD) W/NILTON UNI R IMPRESSION: Stable unilateral screening mammogram. Yearly follow-up mammogram recommended. (A) ASSESSMENT CATEGORY: BIRADS Category 1: Negative. A letter regarding these results will be sent to the patient by the facility within 30 days. Approximately 10% of breast cancers are not detected by mammography. A normal mammogram should not delay biopsy of a clinically suspicious abnormality. [id number] Electronically Signed: Edenilson Crisostomo MD at 14:19 EDT ,
--- NOTE | 2024-05-31 13:05 | BD_ITS ---
STUDY: DUAL ENERGY X-RAY ABSORPTIOMETRY / DXA REASON FOR EXAM: Female, 84 years old. OSTEOPENIA TECHNIQUE: Bone Mineral Density (BMD) measurements of lumbar spine and bilateral hips were obtained. COMPARISON: Comparison is made with prior study dated May 14, 2022. FINDINGS: Lumbar Spine (L1-L4): g/cm2 (0.863) / T-score (-2.0) / Z-score (0.9) Findings are suggestive of osteopenia with a moderate fracture risk. Left Femur Total: g/cm2 (0.730) / T-score (-1.7) / Z-score (0.5) Left Femoral Neck: g/cm2 (0.603) / T-score (-2.2) / Z-score (0.2) Right Femur Total: g/cm2 (0.671) / T-score (-2.2) / Z-score (0.0) Right Femoral Neck: g/cm2 (0.621) / T-score (-2.1) / Z-score (0.4) The T-Scores on the most recent prior examination were: Lumbar Spine (L1-L4): There has been worsening of bone density since the previous examination. Left Femur Total: which represents a worsening of 4.5%. Right Femur Total: which represents a worsening of 6.2%. BD/Dexa Bone Density Study IMPRESSION: The patient is considered osteopenic as outlined below according to World [place] Organization (WHO) criteria with a high fracture risk. There has been worsening of bone density since the previous examination. Reference Information: The T-score is the number of standard deviations above or below the standard which is normal for young adults at their peak bone mineral density. The World Health Organization (WHO) interprets the T-scores as follows: Above -1 Normal bone density Between -1 and -2.5 Osteopenia Equal to / or below -2.5 Osteoporosis As a practical clinical guideline, osteopenia may be graded as follows: Mild -1 through -1.5 Moderate -1.6 through -2.0 Severe -2.1 through -2.4 The Z-score is the number of standard deviations above or below age-matched controls. A Z-score of less than -1.5 would be considered abnormal. References: 1. NIH Osteoporosis and Related Bone Diseases www osteo.org 2. International Society for Clinical Densitometry www iscd.org 3. National Osteoporosis Foundation www nof.org Electronically Signed: Edenilson Crisostomo MD at 12:44 EDT ,
== END | disposition home or self-care (01) ==
LOC: OPBD 13:03
PROVIDERS: PCP Internal Medicine; Referring Provider Nurse Practitioner Family; Visit Provider Nurse Practitioner Family
DX: Z12.31 Encounter for screening mammogram for malignant neoplasm of breast (principal); Z13.820 Encounter for screening for osteoporosis; M85.80 Other specified disorders of bone density and structure, unspecified site; Z85.3 Personal history of malignant neoplasm of breast; Z78.0 Asymptomatic menopausal state; Z90.12 Acquired absence of left breast and nipple
CPT/HCPCS: 77063; 77067; 77080

== ENCOUNTER 2024-06-25 13:04 | Emergency (ER) | payer MEDICARE, OTHER, SELFPAY ==
[2024-06-25 13:06] VITALS: BP 154/63; PULSE 66; RESP 16; TEMP 36.8; O2SAT 100
--- NOTE | 2024-06-25 13:50 | EKG12_ITS ---
Test Reason : WEAKNESS Blood Pressure : / mmHG Vent. Rate : 063 BPM Atrial Rate : 063 BPM P-R Int : 248 ms QRS Dur : 108 ms QT Int : 450 ms P-R-T Axes : 087 013 055 degrees QTc Int : 460 ms Sinus rhythm with 1st degree A-V block Incomplete right bundle branch block Borderline ECG Confirmed by Colt Erickson ([id number]), proposal editor PASTOR FREED ([id number]) on 06/27/2024 9:33:47 AM Referred By: Confirmed By:Colt Erickson
--- NOTE | 2024-06-25 14:01 | RAD_ITS ---
EXAM: XR CHEST, 1 VIEW CLINICAL INDICATION: cough TECHNIQUE: Frontal view of the chest. COMPARISON: XR Chest dated 12/08/2023 FINDINGS: LUNGS AND PLEURAL SPACES: Lungs are clear but hyperinflated suggesting COPD. HEART: Normal heart size. MEDIASTINUM: No mediastinal or hilar mass. BONES/JOINTS: Mild reverse S scoliosis of the thoracolumbar spine. RAD/Chest 1 View (Portable) IMPRESSION: No acute cardiopulmonary abnormality. COPD. Electronically Signed: Max Madison MD at 14:36 EDT ,
[2024-06-25 14:28] LABS: Absolute Lymphocyte Count 1.41 X10^3/uL (0.83-4.51); Absolute Neutrophil Count 2.9 X10^3/uL (2.0-7.7); Basophil# 0.02 X10^3/uL; Basophil% 0.4 % (0-1); Eosinophil# 0.17 X10^3/uL; Eosinophils% 3.4 % (0-5); Hematocrit 33.8 % (37-47); Lymphocyte # 1.41 X10^3/ul (0.83-4.51); Lymphocyte % 27.9 % (19-41); Mean Corp Hgb Conc 32.5 g/dL (32-36); Mean Corpuscular Hgb 30.9 pg (27.0-32.0); Mean Corpuscular Volume 94.9 fL (81-99); Mean Platelet Vol. 9.2 fl (6.2-12.0); Monocyte# 0.57 X10^3/uL; Monocyte% 11.3 % (0-10); NRBC Flagged by Analyzer 0 % (0-5); Neutrophil # 2.88 X10^3/uL (2.7-7.7); Platelet Count 220 K/mm3 (150-450); RBC Distribution Width CV 14.8 % (11.6-14.6); RBC Distribution Width SD 52.4 fl (35.1-43.9); Red Blood Count 3.56 M/mm3 (4.2-5.4); White Blood Count 5.1 K/mm3 (4.4-11.0)
[2024-06-25 14:46] LABS: ALB/GLOB Ratio 0.9 RATIO (0.9-2.4); AST(SGOT) 19 U/L (15-37); Alanine Aminotransfer ALT/SGPT 22 U/L (13-56); Albumin, Serum 2.8 g/dL (3.2-5.0); Alkaline Phosphatase 69 U/L (45-117); Anion Gap 5 (5-15); BUN 19 mg/dL (7-18); BUN/Creat Ratio 24.1 RATIO (10-20); Calcium,Total 8.6 mg/dL (8.5-10.1); Chloride 98 mmol/L (98-107); Creatinine, Serum 0.79 mg/dL (0.55-1.02); EST Glomerular Filtration Rate 74 mL/min (>60); Est Glom Filt Rate - Afr Amer 90 mL/min (>60); Globulin 3.1 g/dL (2.2-4.2); Glucose 93 mg/dL (74-106); Protein, Total 5.9 g/dL (6.4-8.2); Sodium Level 130 mmol/L (136-145)
[2024-06-25 15:05] VITALS: BP 155/73; PULSE 63; RESP 18; O2SAT 99
--- NOTE | 2024-06-25 15:28 | EX.ED.DYSGE1 ---
HPI History of Present Illness Chief Complaint: Weakness Narrative Narrative: Patient is a 84-year-old female with past medical history of adrenal insufficiency, TIA, SIADH, GERD, IBS who presented to the emerged part with a chief complaint of generalized weakness. States that earlier today she felt like her shoulders were weak which went away and got better and then she felt like her lower extremities were weak she states that she did not fall. States that she has been doing a lot of travel recently and seems that she is extremely tired from all the traveling. She states that they traveled for the past 2 weeks. Patient notes that she is on Eliquis and has not missed any doses of this. Patient overall states she is just tired [facility] Medical History Motion sickness Adrenal insufficiency History of atrial flutter Breast pain, right History of breast cancer COVID-19 Chronic diarrhea Osteopenia 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 Lichen sclerosus Atrophic vaginitis TIA (transient ischemic attack) SIADH (syndrome of inappropriate ADH production) Anemia GERD (gastroesophageal reflux disease) Diverticulitis Migraine Osteopenia Nonrheumatic mitral (valve) prolapse Paroxysmal atrial fibrillation Ovarian cyst Compression fracture of L1 lumbar vertebra Paroxysmal atrial flutter Atrial flutter IBS (irritable bowel syndrome) history of blood transfusion 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COMPLEX #8 tabs dofetilide 250 mcg capsule See Rx Instructions .Route 10/12/23 Unknown Rx .COMPLEX #180 caps cranberry 500 mg capsule 500 mg PO BID 01/18/24 Unknown History magnesium oxide 400 mg (241.3 mg 400 mg PO DAILY #90 tabs 01/21/24 Unknown Rx magnesium) tablet metoprolol succinate 25 mg 25 mg PO .COMPLEX #135 tabs 01/21/24 Unknown Rx tablet,extended release 24 hr ondansetron 4 mg disintegrating 4 mg PO Q8H PRN PRN Nausea #10 tabs 01/23/24 Unknown Rx tablet sodium chloride 1,000 mg soluble 1,000 mg PO DAILY electrolyte 03/03/24 Unknown Rx tablet replenishment #30 tabs clobetasol 0.05 % topical cream 1 applic topical .COMPLEX #15 grams 03/08/24 Unknown Rx ferrous sulfate 325 mg (65 mg 325 mg PO DAILY 03/08/24 Unknown History iron) tablet (FeroSul) ascorbate calcium (vitamin C) 500 500 mg PO QDAY 06/07/24 Unknown History mg tablet Allergy/AdvReac Type Severity Reaction Status Date / Time cantaloupe Allergy Severe Anaphylaxis Verified 06/25/24 13:06 grass pollen Allergy Severe Unknown Verified 06/25/24 13:06 Penicillins Allergy Severe Anaphylaxis Verified 06/25/24 13:06 Sulfa (Sulfonamide Allergy Unknown Other Verified 06/25/24 13:06 Antibiotics) mold Allergy Unknown Verified 06/25/24 13:06 pollen extracts Allergy Unknown Verified 06/25/24 13:06 erythromycin base AdvReac Severe Unknown Verified 06/25/24 13:06 lansoprazole (From Prevacid) AdvReac Severe Nausea/Vom/ Verified 06/25/24 13:06 Diarrhea adhesive tape AdvReac Intermediate Rash Verified 06/25/24 13:06 Family History Father Unknown family medical history Mother Uterine cancer Thyroid disorder Kidney disease Hypertension CHF (congestive heart failure) Arthritis Surgical History History of cataract surgery History of colonoscopy (05/2019) History of esophagogastroduodenoscopy (EGD) (05/2019) History of left heart catheterization (09/2012) H/O left mastectomy History of radiofrequency ablation (RFA) procedure for cardiac arrhythmia (08/2013) History of removal of ovarian cyst H/O lymph node biopsy H/O breast biopsy History of dilation and curettage Social History household members: spouse Smoking Status: Never smoker alcohol intake: current alcohol intake frequency: holidays/special occasions only substance use type: does not use caffeine: Yes what type of physical activity do you participate in: walking and yoga frequency: 3-4 times per week seatbelt use: always do you feel safe at home: Yes additional social history: -Tony Patient and are both retired ROS ROS ED ROS Narrative Constitutional: Denies fevers, chills, headaches, lightness, dizziness Eyes: Denies change in vision double vision blurry vision Cardiovascular: Denies chest pain palpitations Respiratory: Denies coughing wheezing shortness of breath Abdomen: Denies abdominal pain nausea vomit diarrhea : Denies any pain phonation, hematuria and polyuria Neurological: Complains of generalized weakness as noted above denies numbness or tingling Musculoskeletal: Denies back pain Skin: Denies rashes or lesions EXAM Physical Exam Narrative Exam Narrative: General: Patient lying in bed rest comfortably did not appear to be in acute distress Head: Atraumatic, normocephalic Eyes: PERRL bilateral, EOMI bilateral, no conjunctival injection noted Neck: Soft, supple, trach midline Cardiovascular: Regular rate and rhythm no murmurs gallops rubs noted Respiratory: Clear to auscultation bilaterally Abdomen: Soft, nondistended, nontender to palpation, bowel sounds present x 4 Extremities: +5/5 strength noted in the bilateral upper and lower extremities, no pedal edema exam, radial pulses +2/4 in the bilateral upper extremities Neurological: Patient is following commands knew that she was at [facility] year is 2023. Patient completed finger-nose and [id number] test bilaterally thigh difficulty. NIH of 0 GCS 15 Skin: Warm, dry, intact no rashes or lesions noted Const Vital Signs: 06/25/24 13:06 06/25/24 14:24 06/25/24 15:05 Temperature 98.3 F Temperature Source Oral Pulse Rate 66 63 Respiratory Rate 16 18 Respiratory Effort Short of Breath Respiratory Pattern Normal Blood Pressure 154/63 H 155/73 H Blood Pressure Mean 93 100 Pulse Ox 100 99 Oxygen Delivery Method Room Air Room Air MDM MDM MDM Narrative Medical decision making narrative: Patient is a 84-year-old female who presented to the emergency department the chief complaint of generalized weakness and feeling fatigued. Patient will have a workup performed here on the differential diagnose includes but not limited to ACS, pneumonia, generalized fatigue from all her traveling. Once workup is obtained reviewed she will be reevaluated. Patient's CBC was reviewed and was largely unremarkable no evidence of leukocytosis white blood count normal 5.1, hemoglobin stable at 11, platelet count was noted to be normal at 220. Patient's sodium was noted be 130, potassium normal at 4, creatinine normal at 0.79. Patient's the AST and ALT were 19 and 22 respectively. Patient's urinalysis was reviewed and showed negative nitrates at 100 leukocyte esterase 5-10 white blood cells with no bacteria seen. Patient EKG was reviewed and independently interpreted by myself which showed sinus rhythm with a rate of 63 bpm. This was compared to a previous EKG from 01/18/2024 and is largely unchanged On reevaluation the patient she states that she would like to go home at this point time she is feeling better. Patient was advised to follow-up with her primary care physician in the outpatient setting. She was advised to return with worsening symptoms or other concerns. All question concerns answered she was discharged home in stable condition Lab Data Labs: Laboratory Results - last 24 hr 06/25/24 06/25/24 14:14 15:27 WBC 5.1 RBC 3.56 L Hgb 11.0 L Hct 33.8 L MCV 94.9 MCH 30.9 MCHC 32.5 RDW Std Deviation 52.4 H RDW Coeff of Idania 14.8 H Plt Count 220 MPV 9.2 Immature Gran % (Auto) 0.000 Neut % (Auto) 57.0 Lymph % (Auto) 27.9 [place] % (Auto) 11.3 H Eos % (Auto) 3.4 Baso % (Auto) 0.4 Absolute Neuts (auto) 2.9 Absolute Lymphs (auto) 1.41 Nucleated RBC % 0 Sodium 130 L Potassium 4.0 Chloride 98 Carbon Dioxide 27.0 Anion Gap 5 BUN 19 H Creatinine 0.79 Est GFR (MDRD) Af Amer 90 Est GFR (MDRD) Non-Af 74 BUN/Creatinine Ratio 24.1 H Glucose 93 Calcium 8.6 Total Bilirubin 0.50 AST 19 ALT 22 Alkaline Phosphatase 69 Total Protein 5.9 L Albumin 2.8 L Globulin 3.1 Albumin/Globulin Ratio 0.9 Urine Color Yellow Urine Clarity Clear Urine pH 6.5 Ur Specific [place] 1.010 Urine Protein 15 H Urine Glucose (UA) Normal Urine Ketones Negative Urine Occult Blood 10 H Urine Nitrite Negative Urine Bilirubin Negative Urine Urobilinogen Normal Ur Leukocyte Esterase 100 H Urine RBC 0-5 SEEN Urine WBC 5-10 SEEN Ur Squamous Epith Cells 0 SEEN Urine Bacteria 0 SEEN Urine Mucus 0 SEEN Radiography Diagnostic Testing: Clinical Impression(s) from Imaging Studies Chest X-Ray 06/25/24 14:01 IMPRESSION: No acute cardiopulmonary abnormality. COPD. Electronically Signed: Max Madison MD at 14:36 EDT , Discharge Plan Triage Chief Complaint: Weakness ED Provider: Girish Jay Dx/Rx/DC Orders Clinical Impression: Generalized weakness Prescriptions: No Action (DME) Bilaterl knee high compression stockings (10-20) See Rx Instructions .Route .MEDSUPPLY Qty: 2 0RF Rx Instructions: As directed calcium carbonate 600 mg calcium (1,500 mg) tablet 600 mg PO DAILY fludrocortisone 0.1 mg tablet 0.05 mg .ROUTE .COMPLEX Qty: 8 5RF Rx Instructions: Take 1/2 tablet po every Thursday, Thursday and Thursday cranberry 500 mg capsule 500 mg PO BID Rx Instructions: administer with meals sodium chloride 1,000 mg tablet,soluble 1,000 mg PO DAILY Qty: 30 8RF ferrous sulfate [FeroSul] 325 mg (65 mg iron) tablet 325 mg PO DAILY clobetasol 0.05 % cream 1 applic TOPICAL .COMPLEX Qty: 15 0RF Rx Instructions: 1 applic TOPICAL apply thin layer as directed bid X 2 weeks then daily X 2 weeks; apply thin layer; massage in to cover area ascorbate calcium (vitamin C) 500 mg tablet 500 mg PO QDAY cholecalciferol (vitamin D3) 10 mcg (400 unit) capsule 2,000 unit PO DAILY ondansetron 4 mg tablet,disintegrating 4 mg PO Q8H PRN PRN (Reason: Nausea) Qty: 10 0RF esomeprazole magnesium 40 mg capsule,delayed release(DR/EC) See Rx Instructions .ROUTE .COMPLEX Qty: 90 3RF Dose Instruction: take 1 capsule by mouth daily Rx Instructions: take 1 capsule by mouth daily apixaban 5 mg tablet 5 mg PO BID Qty: 60 11RF dofetilide 250 mcg capsule See Rx Instructions .ROUTE .COMPLEX Qty: 180 3RF Dose Instruction: TAKE 1 CAPSULE EVERY 12 HOURS FOR ATRIAL FIBRILLATION Rx Instructions: TAKE 1 CAPSULE EVERY 12 HOURS FOR ATRIAL FIBRILLATION magnesium oxide 400 mg (241.3 mg magnesium) tablet 400 mg PO DAILY Qty: 90 3RF metoprolol succinate 25 mg tablet extended release 24 hr 25 mg PO .COMPLEX Qty: 135 3RF Rx Instructions: 1/2 tablet (12.5 mg) in the morning and a whole tablet (25 mg) at bedtime Primary Care Provider: Rochelle Brandt Referrals: Rochelle Brandt MD [Primary Care Provider] - Activity Restrictions/Additional Instructions: Follow-up with your primary care physician in the outpatient setting. Return with worsening symptoms or any other concerns. Print Language: Yoruba Disposition Disposition: Home, Self Care
[2024-06-25 15:32] LABS: Bacteria 0 SEEN /hpf (None Seen); Mucous, Urine 0 SEEN /hpf (<or=2+); Squamous Epithelial Cells - UA 0 SEEN /hpf (5-10)
[2024-06-25 15:42] LABS: Color, Urine Yellow (Yellow); Glucose, Dipstick Normal (Normal); Ketone-Dipstick Negative (Negative); Leukocyte Esterase-Dipstick 100 /ul (Negative); Nitrite-Dipstick Negative (Negative); Occult Blood-Urine 10 /ul (Negative); Protein-Dipstick 15 mg/dl (Negative); Urine Bilirubin Dipstick Negative (Negative); Urine Clarity Clear (Clear); Urine Urobilinogen Normal (Normal); Urine pH 6.5 (5.0 - 8.0)
[2024-06-25 15:53] LABS: White Blood Cells 5-10 SEEN /hpf (0-5)
[2024-06-25 15:54] LABS: Red Blood Cells-Urine 0-5 SEEN /hpf (0-5)
[2024-06-25 16:14] VITALS: BP 165/83; PULSE 63; RESP 16; TEMP 36.6; O2SAT 99
== END 2024-06-25 16:28 | disposition home or self-care (01) ==
PROVIDERS: Emergency Provider Emergency Medicine; PCP Internal Medicine; Visit Provider Emergency Medicine
DX: R53.1 Weakness (principal); I48.0 Paroxysmal atrial fibrillation; K58.9 Irritable bowel syndrome, unspecified; E87.1 Hypo-osmolality and hyponatremia; K21.9 Gastro-esophageal reflux disease without esophagitis; Z79.01 Long term (current) use of anticoagulants; Z79.899 Other long term (current) drug therapy; Z86.73 Personal history of transient ischemic attack (TIA), and cerebral infarction without residual deficits; Z85.3 Personal history of malignant neoplasm of breast
CPT/HCPCS: 71045; 80053; 81001; 85025; 93005; 99283; A4216

== ENCOUNTER → 2024-10-14 | Outpatient (CLI) | payer MEDICARE, OTHER, SELFPAY | END | disposition home or self-care (01) | LOC: SL 20:15 | PROVIDERS: PCP Internal Medicine; Referring Provider Internal Medicine Critical Care Medicine; Visit Provider Internal Medicine Critical Care Medicine | DX: G47.10 Hypersomnia, unspecified (principal) | CPT/HCPCS: 95810 ==

== ENCOUNTER 2024-10-30 19:57 | Emergency (ER) | payer MEDICARE, OTHER, SELFPAY ==
[2024-10-30 19:58] VITALS: BP 101/84; PULSE 67; RESP 18; TEMP 36.8; O2SAT 100; BMI 19.6
[2024-10-30 20:02] VITALS: BP 101/84; PULSE 69; RESP 18; TEMP 36.8; O2SAT 100
[2024-10-30 20:03] VITALS: O2SAT 100
--- NOTE | 2024-10-30 20:06 | CT_ITS ---
EXAM: BRAIN/HEAD WITHOUT CONTRAST CLINICAL HISTORY: Head trauma on anticoagulant COMPARISON: 11/13/2019 TECHNIQUE: Noncontrast images of the head with multiplanar reconstructions. Dose reduction techniques were used including intermediate exposure control (AEC),iterative reconstruction technique, and/or mA and/or KV dose adjustments based on patient's size. FINDINGS: No acute intracranial hemorrhage. No loss of bowens-white differentiation.Moderate patchy areas of deep white matter hypoattenuation are present, which are nonspecific, but most commonly related to chronic ischemic microangiopathy.The ventricles and sulci are normal in appearance. The osseous structures are unremarkable. No soft tissue abnormality identified. The paranasal sinuses and mastoid air cells are clear. CT/Brain/Head without Contrast IMPRESSION: 1. No acute intracranial abnormality. 2. Moderate chronic deep white matter disease. Reading [facility]
--- NOTE | 2024-10-30 20:09 | EX.ED.DYSGE1 ---
HPI History of Present Illness Chief Complaint: Fall Detail of Chief Complaint: Orthostatic lightheadedness, fall with head trauma on anticoagulant Informant: patient Onset/Context/Timing Onset: Today (Nausea vomiting) and Hours (Incident occurred 1 hour prior to presentation.) Context: Sudden Onset Timing: Continuous (Nausea is continuous.) Quality: Head pain, nausea, lightheadedness Location: Multitude Current Severity: Mild Maximum Severity: Severe Worsened by: Upright position Relieved by: Nothing Associated Symptoms Associated Symptoms: HPI narrative Narrative Narrative: Patient is an 84-year-old woman on apixaban for chronic atrial fibrillation. Patient apparently went to a movie. She states she sat in the front row. She is now ill with nausea and vomiting. She denies diarrhea. She does report chills. She denies fever. She does complain of headache. She denies double vision, blurred vision loss of vision. She denies epistaxis, rhinorrhea, congestion postnasal drainage. She denies sore throat. She denies cough or shortness of breath. Patient denies neck pain. She denies paresthesia, anesthesia or motor weakness. Patient denies blood or mucus in her diarrhea. She states her stool is brown brown she denies coffee-ground emesis or hematemesis. Prior similar symptoms: Yes Recent Illness/Hospitalization: No PFSH PFSH Medical History Motion sickness Adrenal insufficiency History of atrial flutter Breast pain, right History of breast cancer COVID-19 Chronic diarrhea Osteopenia 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 Lichen sclerosus Atrophic vaginitis TIA (transient ischemic attack) SIADH (syndrome of inappropriate ADH production) Anemia GERD (gastroesophageal reflux disease) Diverticulitis Migraine Osteopenia Nonrheumatic mitral (valve) prolapse Paroxysmal atrial fibrillation Ovarian cyst Compression fracture of L1 lumbar vertebra Paroxysmal atrial flutter Atrial flutter IBS (irritable bowel syndrome) history of blood transfusion 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) Chronic hyponatremia Home Medications ?Medication ?Instructions ?Recorded ?Last Taken ?Type Bilaterl knee high compression #2 ea 05/29/22 Unknown Rx stockings (10-20) calcium carbonate 600 mg PO DAILY 10/14/22 Unknown History cholecalciferol (vitamin D3) 10 2,000 unit PO DAILY supplement 10/14/22 Unknown History mcg (400 unit) capsule cranberry 500 mg capsule 500 mg PO BID 01/18/24 Unknown History magnesium oxide 400 mg (241.3 mg 400 mg PO DAILY #90 tabs 01/21/24 Unknown Rx magnesium) tablet metoprolol succinate 25 mg 25 mg PO .COMPLEX #135 tabs 01/21/24 Unknown Rx tablet,extended release 24 hr ondansetron 4 mg disintegrating 4 mg PO Q8H PRN PRN Nausea #10 tabs 01/23/24 Unknown Rx tablet clobetasol 0.05 % topical cream 1 applic topical .COMPLEX #15 grams 03/08/24 Unknown Rx ferrous sulfate 325 mg (65 mg 325 mg PO DAILY 03/08/24 Unknown History iron) tablet (FeroSul) ascorbate calcium (vitamin C) 500 500 mg PO QDAY 06/07/24 Unknown History mg tablet apixaban 5 mg tablet (Eliquis) 5 mg PO BID #60 TABLETS 08/05/24 Unknown Rx esomeprazole magnesium 40 mg See Rx Instructions .Route .COMPLEX 09/09/24 Unknown History capsule,delayed release midodrine 2.5 mg tablet 2.5 mg PO BID #60 tabs 09/09/24 Unknown Rx sodium chloride 1,000 mg soluble 1,000 mg PO DAILY PRN electrolyte 09/09/24 Unknown History tablet replenishment dofetilide 250 mcg capsule 250 mcg PO BID #180 caps 10/06/24 Unknown Rx meclizine .ROUTE PRN dizziness, nausea 10/30/24 Unknown History Allergy/AdvReac Type Severity Reaction Status Date / Time cantaloupe Allergy Severe Anaphylaxis Verified 10/30/24 20:06 grass pollen Allergy Severe Unknown Verified 10/30/24 20:06 Penicillins Allergy Severe Anaphylaxis Verified 10/30/24 20:06 Sulfa (Sulfonamide Allergy Unknown Other Verified 10/30/24 20:06 Antibiotics) mold Allergy Unknown Verified 10/30/24 20:06 pollen extracts Allergy Unknown Verified 10/30/24 20:06 erythromycin base AdvReac Severe Unknown Verified 10/30/24 20:06 lansoprazole (From Prevacid) AdvReac Severe Nausea/Vom/ Verified 10/30/24 20:06 Diarrhea adhesive tape AdvReac Intermediate Rash Verified 10/30/24 20:06 Family History Father Unknown family medical history Mother Uterine cancer Thyroid disorder Kidney disease Hypertension CHF (congestive heart failure) Arthritis Surgical History History of cataract surgery History of colonoscopy (05/2019) History of esophagogastroduodenoscopy (EGD) (05/2019) History of left heart catheterization (09/2012) H/O left mastectomy History of radiofrequency ablation (RFA) procedure for cardiac arrhythmia (08/2013) History of removal of ovarian cyst H/O lymph node biopsy H/O breast biopsy History of dilation and curettage Social History household members: spouse Smoking Status: Never smoker alcohol intake: current alcohol intake frequency: holidays/special occasions only substance use type: does not use caffeine: Yes what type of physical activity do you participate in: walking and yoga frequency: 3-4 times per week seatbelt use: always do you feel safe at home: Yes additional social history: -Tony Patient and are both retired ROS ROS ED Constitutional Constitutional ED: Reports chills; Denies fever(s), subjective, sweats or weight loss Eyes Eyes: Denies blurry vision, change in vision or diplopia ENT ENT ED: Denies ear pain or rhinorrhea Cardiovascular Cardiovascular: Denies chest pain, orthopnea or palpitations Respiratory/Chest Respiratory/Chest: Denies cough, dyspnea, dyspnea on exertion, orthopnea or sputum Gastrointestinal Gastrointestinal: Reports nausea and vomiting; Denies abdominal pain, constipation, diarrhea or melena Genitourinary Genitourinary ED: Denies dysuria, hematuria or urinary frequency Musculoskeletal Musculoskeletal: Denies arthralgias or myalgias Integumentary Denies rash Neurologic Neurologic: Reports headache(s); Denies paresthesias or weakness Psychiatric Psychiatric: Denies anxiety or depression Endocrine Endocrinology: Denies cold intolerance or heat intolerance Hematologic/Lymphatic Hematologic/Lymphatic: Reports easy bleeding, easy bruising and other Details: Patient is on anticoagulant, apixaban for chronic A-fib. EXAM Physical Exam Const Vital Signs: 10/30/24 19:58 10/30/24 20:02 10/30/24 20:03 Temperature 98.2 F 98.2 F Temperature Source Oral Oral Pulse Rate 67 69 Respiratory Rate 18 18 Respiratory Effort Normal Respiratory Depth Normal Respiratory Pattern Normal Blood Pressure 101/84 H 101/84 H Blood Pressure Mean 89 89 Pulse Ox 100 100 100 Oxygen Delivery Method Room Air Room Air Room Air 10/30/24 20:47 10/30/24 20:48 Temperature 98.3 F Temperature Source Oral Pulse Rate 67 67 Respiratory Rate 13 11 L Respiratory Effort Respiratory Depth Respiratory Pattern Blood Pressure 152/125 H 152/125 H Blood Pressure Mean 134 134 Pulse Ox 100 100 Oxygen Delivery Method Room Air Room Air Positive well nourished and well developed General Appearance ED: well developed, NAD and pallor; Negative for cyanotic or diaphoretic HEENT Reports dry mucous membranes tenderness Mouth ED: Yes dry mucous membranes Mouth: dry mucous membranes Eyes PERRL and EOMs intact bilaterally Eyes Narrative: Subconjunctival hemorrhage General Eye ED: Negative for pale conjunctiva or scleral icterus Neck no lymphadenopathy, supple and no JVD Neck Narrative: There is no posterior midline pain. She has full active range of motion. Chest Wall inspection of chest normal and palpation of chest normal Resp normal respiratory effort and clear to auscultation bilaterally Cardio regular rate and no murmurs Rhythm: abnormal rhythm irregularly irregular GI non-tender, non-distended and no masses; Negative for normal to inspection, nondistended, normoactive bowel sounds or hepatosplenomegaly Inspection: Negative for abdominal distention Auscultation: hypoactive bowel sounds Palpation: soft; Negative for tender or guarding Back/Spine no CVA tenderness Extremity normal to inspection Extremity Narrative: There is no clubbing or cyanosis noted. General Extremety ED: Negative for edema or tenderness General Extremity: Negative for edema Neuro oriented x3 and CN's II-XII intact bilaterally Neuro Narrative: There is no clonus or Babinski sign noted. No dysmetria. Moves all extremities. Sensorium / Orientation: alert Psych mental status grossly normal Skin no rashes or lesions noted, no wounds and No skin turgor normal General Skin Exam: pallor; Negative for jaundice MDM MDM MDM Narrative Medical decision making narrative: Patient appears ill. I presume her nausea and vomiting since her abdominal exam is benign is due to a viral illness. Since she has no respiratory symptoms rapid antigen for COVID and influenza was not ordered. Clinically she appears dehydrated. She is hypotensive. 1 L of normal saline was ordered. BMP was ordered to assess renal function, CO2 anion gap and glucose. CBC to assess H&H and white count. Because she fell hit her head with complaint of headache on apixaban per [place] CT head rule imaging was obtained to rule out intracranial bleed i.e. traumatic subdural hematoma, epidural hematoma, subarachnoid hemorrhage or intraparenchymal contusion. Since she has no C-spine tenderness has GCS of 15 C-spine was cleared per Nexus criteria. Urine a was obtained since patient states last time she had central low back pain she had a UTI. History & Record Review Additional record(s) reviewed:: Prior outpatient record (Neurology note reviewed. Patient seen for hypersomnolence. Sleep study was ordered. Sleep study notes were reviewed. There was no conclusion drawn. Office visit for [employer] was noted and patient was seen for vaginal dryness.), Prior ED visit (ER visit January 2024 for nausea and vomiting dehydration.) and Prior labs Lab Data Attestation: I reviewed the patient's lab results. Lab results narrative: CBC is unremarkable. Comprehensive metabolic panel visit sodium 127 chloride 91. Patient is not on a diuretic. Potassium is 3.3. Creatinine is elevated from baseline at 1.11 with an estimated GFR of 50. Urinalysis reveals soft gravity 1.010. Macro was positive for protein ketones and blood. Micro is remarkable for pyuria without bacteriuria. Labs: Laboratory Results - last 24 hr 10/30/24 10/30/24 10/30/24 20:05 20:10 20:20 WBC 5.3 RBC 4.07 L Hgb 13.3 Hct 37.2 MCV 91.4 MCH 32.7 H MCHC 35.8 RDW Std Deviation 42.8 RDW Coeff of Idania 12.8 Plt Count 256 MPV 9.5 Immature Gran % (Auto) 0.600 Neut % (Auto) 55.4 Lymph % (Auto) 29.5 [place] % (Auto) 13.7 H Eos % (Auto) 0.4 Baso % (Auto) 0.4 Absolute Neuts (auto) 2.9 Absolute Lymphs (auto) 1.55 Nucleated RBC % 0 Sodium 127 L Potassium 3.3 L Chloride 91 L Carbon Dioxide 27.0 Anion Gap 10 BUN 16 Creatinine 1.11 H Estim Creat Clear Calc 35.10 Est GFR (MDRD) Af Amer 60 Est GFR (MDRD) Non-Af 50 L BUN/Creatinine Ratio 14.4 Glucose 120 H Lactic Acid 2.0 Calcium 8.7 Total Bilirubin 1.00 AST 29 ALT 29 Alkaline Phosphatase 95 Total Protein 6.8 Albumin 3.3 Globulin 3.5 Albumin/Globulin Ratio 0.9 Urine Color Yellow Urine Clarity Sl. Cloudy Urine pH 7.0 Ur Specific [place] 1.010 Urine Protein 30 H Urine Glucose (UA) Normal Urine Ketones 15 H Urine Occult Blood 50 H Urine Nitrite Negative Urine Bilirubin Negative Urine Urobilinogen Normal Ur Leukocyte Esterase 500 H Urine RBC 0-5 SEEN Urine WBC 10-25 SEEN Ur Squamous Epith Cells 0 SEEN Urine Bacteria 0 SEEN Hyaline Casts 5-10 SEEN Fine Granular Casts 0-5 SEEN Urine Mucus 1+ Radiography Diagnostic Testing: Clinical Impression(s) from Imaging Studies Brain CT 10/30/24 20:06 IMPRESSION: 1. No acute intracranial abnormality. 2. Moderate chronic deep white matter disease. [facility] the head without contrast reveals no evidence of epidural hematoma, subdural hematoma, traumatic subarachnoid hemorrhage or intraparenchymal contusion. There is evidence of fracture. There is no fluid noted in the sinuses. Formal read by radiologist is pending. 2033. Treatment and Re-Evaluation :: Patient does feel better after 500 cc of the liter that was order has infused. Comments:: Patient was reassessed at 2154. Blood pressure is now 160 systolic. Patient feels better. She is smiling. She has color to her cheeks. Discharge Plan Triage Chief Complaint: Fall ED Provider: Tejinder Mora Dx/Rx/DC Orders Clinical Impression: Hypotension due to hypovolemia, Intractable nausea and vomiting, Acute dehydration, Acute head trauma, Anticoagulant long-term use, Atrial fibrillation, chronic, Near syncope Instructions: ED Dehydration (Adult) Prescriptions: No Action (DME) Bilaterl knee high compression stockings (10-20) See Rx Instructions .Route .MEDSUPPLY Qty: 2 0RF Rx Instructions: As directed calcium carbonate 600 mg calcium (1,500 mg) tablet 600 mg PO DAILY cranberry 500 mg capsule 500 mg PO BID Rx Instructions: administer with meals sodium chloride 1,000 mg tablet,soluble 1,000 mg PO DAILY PRN (Reason: electrolyte replenishment) esomeprazole magnesium 40 mg capsule,delayed release(DR/EC) See Rx Instructions .ROUTE .COMPLEX Dose Instruction: take 1 capsule by mouth daily Rx Instructions: take 1 capsule by mouth daily; midodrine 2.5 mg tablet 2.5 mg PO BID Qty: 60 1RF ferrous sulfate [FeroSul] 325 mg (65 mg iron) tablet 325 mg PO DAILY clobetasol 0.05 % cream 1 applic TOPICAL .COMPLEX Qty: 15 0RF Rx Instructions: 1 applic TOPICAL apply thin layer as directed bid X 2 weeks then daily X 2 weeks; apply thin layer; massage in to cover area ascorbate calcium (vitamin C) 500 mg tablet 500 mg PO QDAY cholecalciferol (vitamin D3) 10 mcg (400 unit) capsule 2,000 unit PO DAILY ondansetron 4 mg tablet,disintegrating 4 mg PO Q8H PRN PRN (Reason: Nausea) Qty: 10 0RF meclizine .ROUTE PRN (Reason: dizziness, nausea ) magnesium oxide 400 mg (241.3 mg magnesium) tablet 400 mg PO DAILY Qty: 90 3RF metoprolol succinate 25 mg tablet extended release 24 hr 25 mg PO .COMPLEX Qty: 135 3RF Rx Instructions: 1/2 tablet (12.5 mg) in the morning and a whole tablet (25 mg) at bedtime Eliquis 5 mg tablet 5 mg PO BID Qty: 60 11RF dofetilide 250 mcg capsule 250 mcg PO BID Qty: 180 3RF Primary Care Provider: Rochelle Brandt Referrals: Rochelle Brandt MD [Primary Care Provider] - As Needed Print Language: Maltese Disposition Disposition: Home, Self Care
[2024-10-30 20:20] LABS: Absolute Lymphocyte Count 1.55 X10^3/uL (0.83-4.51); Absolute Neutrophil Count 2.9 X10^3/uL (2.0-7.7); Basophil# 0.02 X10^3/uL; Basophil% 0.4 % (0-1); Eosinophil# 0.02 X10^3/uL; Eosinophils% 0.4 % (0-5); Hematocrit 37.2 % (37-47); Hemoglobin 13.3 g/dL (12.0-15.0); Lymphocyte # 1.55 X10^3/ul (0.83-4.51); Lymphocyte % 29.5 % (19-41); Mean Corp Hgb Conc 35.8 g/dL (32-36); Mean Corpuscular Hgb 32.7 pg (27.0-32.0); Mean Corpuscular Volume 91.4 fL (81-99); Mean Platelet Vol. 9.5 fl (6.2-12.0); Monocyte# 0.72 X10^3/uL; Monocyte% 13.7 % (0-10); NRBC Flagged by Analyzer 0 % (0-5); Neutrophil # 2.92 X10^3/uL (2.7-7.7); Neutrophil % 55.4 % (47-70); Platelet Count 256 K/mm3 (150-450); RBC Distribution Width CV 12.8 % (11.6-14.6); RBC Distribution Width SD 42.8 fl (35.1-43.9); Red Blood Count 4.07 M/mm3 (4.2-5.4); White Blood Count 5.3 K/mm3 (4.4-11.0)
[2024-10-30 20:31] LABS: Bacteria 0 SEEN /hpf (None Seen); Squamous Epithelial Cells - UA 0 SEEN /hpf (5-10)
[2024-10-30 20:47] VITALS: BP 152/125; PULSE 67; RESP 13; O2SAT 100
[2024-10-30 20:47] LABS: ALB/GLOB Ratio 0.9 RATIO (0.9-2.4); AST(SGOT) 29 U/L (15-37); Alanine Aminotransfer ALT/SGPT 29 U/L (13-56); Albumin, Serum 3.3 g/dL (3.2-5.0); Alkaline Phosphatase 95 U/L (45-117); Anion Gap 10 (5-15); BUN 16 mg/dL (7-18); BUN/Creat Ratio 14.4 RATIO (10-20); Calcium,Total 8.7 mg/dL (8.5-10.1); Chloride 91 mmol/L (98-107); Creatinine, Serum 1.11 mg/dL (0.55-1.02); EST Glomerular Filtration Rate 50 mL/min (>60); Est Glom Filt Rate - Afr Amer 60 mL/min (>60); Globulin 3.5 g/dL (2.2-4.2); Glucose 120 mg/dL (74-106); Potassium 3.3 mmol/L (3.5-5.1); Protein, Total 6.8 g/dL (6.4-8.2); Sodium Level 127 mmol/L (136-145)
[2024-10-30] MEDS: 0.9% Normal Saline (1000mL) 1,000 ML 1000 ML IV (20:47)
[2024-10-30 20:48] VITALS: BP 152/125; PULSE 67; RESP 11; TEMP 36.8; O2SAT 100
[2024-10-30 20:50] LABS: Color, Urine Yellow (Yellow); Glucose, Dipstick Normal (Normal); Ketone-Dipstick 15 mg/dl (Negative); Leukocyte Esterase-Dipstick 500 /ul (Negative); Nitrite-Dipstick Negative (Negative); Occult Blood-Urine 50 /ul (Negative); Protein-Dipstick 30 mg/dl (Negative); Urine Bilirubin Dipstick Negative (Negative); Urine Clarity Sl. Cloudy (Clear); Urine Urobilinogen Normal (Normal)
[2024-10-30 21:18] LABS: Fine Granular Cast- Urine 0-5 SEEN /lpf (0-5); Hyaline Cast 5-10 SEEN /lpf (0-5); Mucous, Urine 1+ /hpf (<or=2+); Red Blood Cells-Urine 0-5 SEEN /hpf (0-5); White Blood Cells 10-25 SEEN /hpf (0-5)
[2024-10-30 21:58] VITALS: BP 166/71; PULSE 73; RESP 18; TEMP 36.6; O2SAT 100
[2024-10-31 00:16] LABS: Reflex Lactate? Y
== END 2024-10-30 22:11 | disposition home or self-care (01) ==
PROVIDERS: Emergency Provider Emergency Medicine; PCP Internal Medicine; Visit Provider Emergency Medicine
DX: I95.1 Orthostatic hypotension (principal); I48.20 Chronic atrial fibrillation, unspecified; S09.90XA Unspecified injury of head, initial encounter; E86.0 Dehydration; Z79.01 Long term (current) use of anticoagulants; E86.1 Hypovolemia; R11.2 Nausea with vomiting, unspecified; K21.9 Gastro-esophageal reflux disease without esophagitis; R51.9 Headache, unspecified; W19.XXXA Unspecified fall, initial encounter; R42 Dizziness and giddiness
CPT/HCPCS: 70450; 80053; 81001; 83605; 85025; 96360; 99285; P9612

== ENCOUNTER → 2024-12-20 | Outpatient (CLI) | payer MEDICARE, OTHER, SELFPAY ==
[2024-12-20 14:42] LABS: Anion Gap 11 (5-15); BUN 24 mg/dL (4-19); BUN/Creat Ratio 19.7 RATIO (10-20); Calcium,Total 9.5 mg/dL (7.6-11.0); Carbon Dioxide 23.4 mmol/L (21.0-32.0); Chloride 94 mmol/L (98-108); Creatinine, Serum 1.21 mg/dL (0.70-1.20); EST Glomerular Filtration Rate 45 (>60); Glucose 119 mg/dL (70-99); Potassium 4.6 mmol/L (3.3-5.1); Sodium Level 129 mmol/L (133-145)
== END | disposition home or self-care (01) ==
PROVIDERS: PCP Internal Medicine; Referring Provider Internal Medicine Nephrology; Visit Provider Internal Medicine Nephrology
DX: E22.2 Syndrome of inappropriate secretion of antidiuretic hormone (principal)
CPT/HCPCS: 36415; 80048

== ENCOUNTER 2024-12-28 15:30 | Outpatient (RCR) | payer MEDICARE, OTHER, SELFPAY ==
--- NOTE | 2024-11-15 13:47 | HP.PTEVAL_ITS ---
Patient's Visit Information Visit Information Visit Information: JULIANNA TUCKER is a 84 year old F referred to Physical Therapy by Dr. Rochelle Brandt MD with a diagnosis of dizziness/freq falls. Date of Evaluation: 11/15/24 Physical Therapist: NEISHA Byrd Visit Plan Frequency: 2x /Week Duration: 2 Months Plan: 2X/ week for 8 weeks for neutral spine core stability, postural exercises, LE strength, gait training, stairs, curb steps, and eventually once stronger work on balance exercises with HEP. Subjective Subjective: Pt reports that she fell on 2-15 in her bathroom. She managed to hit the tub and the floor. She feel because she was disoriented and she was vomiting. She got dizzy in a movie theater prior to this and got nauseated. She gets nauseated easily in cars, boats, etc since she was little. She went to the ER and they rehydrated her and did a scan of her head. They did not x-ray her back. By the next morning she was in a lot of pain in her back. She just saw Dr Marcos at the hospital for pain. The X-ray report showed that she had 2 compression fx of T7 but they are not fresh fx. The x-ray showed some degen eration. She has had a lot of pain and it is hard for her to sit or stand for long periods of time. Some of this is fatigue. She wants pain relief and some strength. will do an MRI after PT to get more details. Her balance is worse and worse (polynueropathy). She is terrified of falling. She dug out her moms old rollator. Her back pain is in center of back and radiates out along the rib s. She has no pain in the legs. She has steps at home to do laundry but her is doing the laundry. Pt gets dizzy when she has motion (cars, boats, planes). She reports that she does not get dizzy with turning in bed or turning her head. She has to be careful with what shoes she wears or walking on uneven surfaces. Pain back pain: Pain Intensity (Out of 10): 4 Objective Objective: Gait: walks with rollator (therapist had to move the arms up..was her moms. Her Dr said she needs to use it) with smaller step length Sit to stand: able to get up on first attempt with 2 arm rails. Not able to get up without UE support LE MMT: R hip flex 12.5 and L 10.8 R knee ext 14.1 and L 15 R knee flex 10.3 and L 9.6 FGA: 7 Balance/Special Test Scores Functional Gait Assessment Score: 7 % Disability: 76.6700 Lower Extremity Functional Score: 12 Goals Goal 1:: I HEP Goal Time Frame: 8-12 Weeks Goal 2:: Be able to go up and down steps recip with 2 hand rails with CGA.. Goal Time Frame: 8-12 Weeks Goal 3:: Be able to walk 2 laps around entire dept with rollator with big strides and heel to toe gait pattern with CGA Goal Time Frame: 4-6 Weeks Goal 4:: Increase LE strength (at the time of the eval: R hip flex 12.5 and L 10.8 R knee ext 14.1 and L 15 R knee flex 10.3 and L 9.6). Goal Time Frame: 8-12 Weeks Goal 5:: Be able to get out of a chair with one arm rest 10/10 times Goal Time Frame: 6-8 Weeks Rehabilitation Potential Rehabilitation Potential: Good Anticipated Interventions Patient/Client Instruction: Educate patient on: Condition and Plan of Care For the Purpose of:: To decrease pain, To improve nutrient delivery to tissue, To improve muscle performance and motor function, To improve ability to perform ADL's, To increase tolerance to activity/condition/position, To improve performance and independence with ADL's, To improve ability of physical actions for home/community/work/leisure, To improve gait and locomotor functions, To improve health of tissue, To improve endurance, To improve balance and To improve safety with gait Therapeutic Exercise to Include: Strength training, Endurance training, Body mechanics, Postural training, Gait and locomotor training, Neuromotor development, Active ROM and Dynamic Lumbar Stabilization For the Purpose of:: To decrease pain, To increase ROM, To improve nutrient d elivery to tissue, To improve muscle performance and motor function, To improve ability to perform ADL's, To increase tolerance to activity/condition/position, To improve performance and independence with ADL's, To decrease level of supervision to perform tasks, To improve ability of physical actions for home/community/work/leisure, To improve gait and locomotor functions, To improve health of tissue, To decrease soft tissue restriction, To increase flexibility/ROM, To improve endurance, To improve balance and To improve safety with gait Functional Training to Include: Gait training For the Purpose of:: To improve gait and locomotor functions and To improve safety with gait Text: Thank you for the opportunity to evaluate your patient. For Medicare and Medicare HMO plans, please review the plan of care and approve it. It will need to be FAXED BACK to us at [phone] for Medicare purposes. For Medicare only, by signing this I certify the plan of care. Please let me know if there are questions or concerns regarding this plan of care. Physician Signature: Date:
--- NOTE | 2024-12-28 16:55 | HP.PTDCSUM ---
Discharge Summary D/C summary: It has been my pleasure to treat JULIANNA TUCKER referred by Dr. Rochelle Brandt MD, with the diagnosis of dizziness/freq falls for a total of 15 visit(s). Discharge Date: 12/28/24 Please see the following information for a summary of their discharge status. Subjective Subjective: Pt reports that they just got better at balance but feels she just started and she feels she needs to go on with those things. Today she is very wobbly. She saw her Dr yesterday and said that she will not get better but wants her to keep up with her physical therapy. She is doing her HEP. She will try to get over here 2-3 times a week to do her PT. She reports that he back is better and she is getting an MRI at the end of January Pain back pain: Pain Intensity (Out of 10): 4 Right knee: Pain Intensity (Out of 10): 0 Rib Cage: Pain Intensity (Out of 10): 5 Overall Improvement % Improvement: 40 Objective Objective/Function: R hip flex 12.5 and L 11 R knee ext 16 and L 15.4 R knee flex 10.3 and L 10.6). FGA 20 Stairs: pt is up steps recip with 2 hand rails and down recip with 1 hand rail Goals Goal 1:: I HEP Goal Progress: Goal Met Goal 2:: Be able to go up and down steps recip with 2 hand rails with CGA.. Goal Progress: Goal Met Goal 3:: Be able to walk 2 laps around entire dept with rollator with big strides and heel to toe gait pattern with CGA Goal Progress: Goal Met Goal 4:: Increase LE strength (at the time of the eval: R hip flex 12.5 and L 10.8 R knee ext 14.1 and L 15 R knee flex 10.3 and L 9.6). Goal Progress: Progressing Goal 5:: Be able to get out of a chair with one arm rest 10/10 times Goal Progress: Goal Met Plan Plan: DC PT to gym exercises and previously given HEP D/C Information Discharge Comments: DC PT to indep HEP and gym routine d/c sentence: If there are questions or concerns regarding this patient's physical therapy, please feel free to call me at [phone]. Thank you for the referral of this patient. Sincerely, Richelle Nagy, MPT Balance/Gait/Functional tests Balance/Special Test Scores Functional Gait Assessment Score: 20 % Disability: 33.3400 Lower Extremity Functional Score: 31 Improvement % Improvement: 40
== END 2024-12-28 19:00 | disposition home or self-care (01) ==
LOC: PT 15:30
PROVIDERS: PCP Internal Medicine; Visit Provider Internal Medicine
DX: R42 Dizziness and giddiness (principal); R29.6 Repeated falls
CPT/HCPCS: 97110; 97162; 97530

== ENCOUNTER → 2025-02-07 | Outpatient (CLI) | payer MEDICARE, OTHER, SELFPAY ==
--- NOTE | 2025-02-07 06:49 | MRI_ITS ---
PROCEDURE: SPINE THORACIC (ROUTINE) 02/07/2025 REASON FOR EXAM: THORACIC COMPRESSION FRACTURE TECHNIQUE: Noncontrast thoracic spine MRI. Multiplanar and multisequence images were obtained. FINDINGS: There is a T7 compression deformity and there is also an L1 compression deformity. There is no cord compression or abnormal cord signal. There is slight edema at T7 with mild posterior cortical bowing. Minimal subchondral edema at L1 with posterior cortical bowing as well. No traumatic disc protrusion. On axial images, no cord compression. No abnormal cord signal. No syrinx. No demyelination. Thoracic spinal cord and thoracic aorta normal in caliber. Small bilateral pleural effusions. MRI/Spine Thoracic (Routine) IMPRESSION: T7 and L1 compression deformities with mild posterior cortical bowing. Both de monstrate a slight degree of edema which may reflect subacute age or a slight degree of ongoing microfracture. Reading [facility]
== END | disposition home or self-care (01) ==
LOC: OPMRI 07:07
PROVIDERS: PCP Internal Medicine; Referring Provider Anesthesiology; Visit Provider Anesthesiology
DX: M48.54XA Collapsed vertebra, not elsewhere classified, thoracic region, initial encounter for fracture (principal); X58.XXXA Exposure to other specified factors, initial encounter
CPT/HCPCS: 72146

== ENCOUNTER 2025-02-23 15:54 | Inpatient (IN) | payer MEDICARE, OTHER, SELFPAY ==
[2025-02-23 15:56] VITALS: BP 190/103; PULSE 89; RESP 16; TEMP 36.6; O2SAT 97
[2025-02-23 16:17] VITALS: BP 186/97
--- NOTE | 2025-02-23 16:20 | EX.ED.DYSGE1 ---
HPI <RIGOBERTO Grant - Last Filed: 02/23/25 21:49> History of Present Illness Chief Complaint: Nausea/Vomiting Narrative Narrative: Patient presenting today due to nausea and vomiting that started this morning. She reports that she has vomited multiple times today and now feels dehydrated. She has been seen here multiple times in the past due to nausea and vomiting. She reports that there has been no clear cause to her cyclic vomiting. She did follow-up with GI years ago but does not currently follow with them. She reports mild lower abdominal cramping and worsened urinary incontinence today. She denies fevers, chills, hematemesis, and blood in her stool. Her last BM was yesterday but she is feeling constipated. She has a PMH of SIADH and paroxysmal A-fib on Eliquis. PFSH <RIGOBERTO Grant - Last Filed: 02/23/25 21:49> PFSH Medical History Motion sickness Adrenal insufficiency History of atrial flutter Breast pain, right History of breast cancer COVID-19 Chronic diarrhea Osteopenia 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 Lichen sclerosus Atrophic vaginitis TIA (transient ischemic attack) SIADH (syndrome of inappropriate ADH production) Anemia GERD (gastroesophageal reflux disease) Diverticulitis Migraine Osteopenia Nonrheumatic mitral (valve) prolapse Paroxysmal atrial fibrillation Ovarian cyst Compression fracture of L1 lumbar vertebra Paroxysmal atrial flutter Atrial flutter IBS (irritable bowel syndrome) history of blood transfusion 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) Chronic hyponatremia Home Medications ?Medication ?Instructions ?Recorded ?Last Taken ?Type Bilaterl knee high compression #2 ea 05/29/22 Unknown Rx stockings (10-20) calcium carbonate 600 mg PO DAILY 10/14/22 Unknown History cholecalciferol (vitamin D3) 10 2,000 unit PO DAILY supplement 10/14/22 Unknown History mcg (400 unit) capsule ondansetron 4 mg disintegrating 4 mg PO Q8H PRN PRN Nausea #10 tabs 01/23/24 Unknown Rx tablet clobetasol 0.05 % topical cream 1 applic topical .COMPLEX #15 grams 03/08/24 Unknown Rx ascorbate calcium (vitamin C) 500 500 mg PO QDAY 06/07/24 Unknown History mg tablet esomeprazole magnesium 40 mg See Rx Instructions .Route .COMPLEX 09/09/24 Unknown History capsule,delayed release dofetilide 250 mcg capsule 250 mcg PO BID #180 caps 10/06/24 Unknown Rx meclizine .Route PRN dizziness, nausea 10/30/24 Unknown History midodrine 2.5 mg tablet 2.5 mg PO BID #180 tabs 11/08/24 Unknown Rx sodium chloride 1,000 mg soluble 1,000 mg PO DAILY PRN electrolyte 12/26/24 Unknown Rx tablet replenishment #30 tabs magnesium oxide 400 mg (241.3 mg 400 mg PO DAILY #90 tabs 01/30/25 Unknown Rx magnesium) tablet metoprolol succinate 25 mg 25 mg PO .COMPLEX #135 tabs 01/30/25 Unknown Rx tablet,extended release 24 hr apixaban 2.5 mg tablet 2.5 mg PO BID #180 TABLETS 02/22/25 Unknown Rx Allergy/AdvReac Type Severity Reaction Status Date / Time cantaloupe Allergy Severe Anaphylaxis Verified 02/23/25 15:58 grass pollen Allergy Severe Unknown Verified 02/23/25 15:58 Penicillins Allergy Severe Anaphylaxis Verified 02/23/25 15:58 Sulfa (Sulfonamide Allergy Unknown Other Verified 02/23/25 15:58 Antibiotics) mold Allergy Unknown Verified 02/23/25 15:58 pollen extracts Allergy Unknown Verified 02/23/25 15:58 erythromycin base AdvReac Severe Unknown Verified 02/23/25 15:58 lansoprazole (From Prevacid) AdvReac Severe Nausea/Vom/ Verified 02/23/25 15:58 Diarrhea adhesive tape AdvReac Intermediate Rash Verified 02/23/25 15:58 Family History Father Unknown family medical history Mother Uterine cancer Thyroid disorder Kidney disease Hypertension CHF (congestive heart failure) Arthritis Surgical History History of cataract surgery History of colonoscopy (05/2019) History of esophagogastroduodenoscopy (EGD) (05/2019) History of left heart catheterization (09/2012) H/O left mastectomy History of radiofrequency ablation (RFA) procedure for cardiac arrhythmia (08/2013) History of removal of ovarian cyst H/O lymph node biopsy H/O breast biopsy History of dilation and curettage Social History household members: spouse Smoking Status: Never smoker alcohol intake: current alcohol intake frequency: holidays/special occasions only substance use type: does not use caffeine: Yes what type of physical activity do you participate in: walking and yoga frequency: 3-4 times per week seatbelt use: always do you feel safe at home: Yes additional social history: -Tony Patient and are both retired ROS <RIGOBERTO Grant - Last Filed: 02/23/25 21:49> ROS ED Constitutional Constitutional ED: Denies chills or fever(s) Cardiovascular Cardiovascular: Denies chest pain Respiratory/Chest Respiratory/Chest: Denies cough Gastrointestinal Gastrointestinal: Reports abdominal pain, constipation, nausea and vomiting; Denies diarrhea Genitourinary Genitourinary ED: Reports other Details: Incontinence ; Denies dysuria, hematuria or urinary urgency Musculoskeletal Musculoskeletal: Denies back pain Integumentary Denies rash Neurologic Neurologic: Denies weakness EXAM <RIGOBERTO Grant - Last Filed: 02/23/25 21:49> Physical Exam Const Vital Signs: 02/23/25 15:56 02/23/25 16:17 02/23/25 18:05 Temperature 97.9 F Temperature Source Temporal Pulse Rate 89 79 Respiratory Rate 16 18 Blood Pressure 190/103 H 186/97 H 124/60 H Blood Pressure Mean 132 126 81 Pulse Ox 97 Oxygen Delivery Method Room Air 02/23/25 20:00 02/23/25 20:46 02/23/25 23:27 Temperature 97.9 F Temperature Source Pulse Rate 75 75 78 Respiratory Rate 16 16 18 Blood Pressure 127/72 H 127/75 H 121/70 H Blood Pressure Mean 90 92 87 Pulse Ox 98 Oxygen Delivery Method Positive well nourished, well developed and no apparent distress General Appearance ED: well developed HEENT Reports normocephalic, head/scalp atraumatic and dry mucous membranes Mouth ED: Yes dry mucous membranes Mouth: dry mucous membranes Eyes PERRL and EOMs intact bilaterally Neck full ROM and supple Chest Wall inspection of chest normal Resp normal respiratory effort and clear to auscultation bilaterally Cardio regular rate and regular rhythm GI soft to palpation, non-tender, non-distended and no masses Back/Spine normal ROM and normal to inspection Extremity normal to inspection and full ROM Neuro oriented x3, CN's II-XII intact bilaterally, moves all extremities, no focal motor deficits and no sensory deficits noted Sensorium / Orientation: awake and alert Psych mental status grossly normal and thought process normal Skin no rashes or lesions noted and no wounds <Dr. Mayur Tabares DO - Last Filed: 02/24/25 00:03> Physical Exam Const Vital Signs: 02/23/25 15:56 02/23/25 16:17 02/23/25 18:05 Temperature 97.9 F Temperature Source Temporal Pulse Rate 89 79 Respiratory Rate 16 18 Blood Pressure 190/103 H 186/97 H 124/60 H Blood Pressure Mean 132 126 81 Pulse Ox 97 Oxygen Delivery Method Room Air 02/23/25 20:00 02/23/25 20:46 02/23/25 23:27 Temperature 97.9 F Temperature Source Pulse Rate 75 75 78 Respiratory Rate 16 16 18 Blood Pressure 127/72 H 127/75 H 121/70 H Blood Pressure Mean 90 92 87 Pulse Ox 98 Oxygen Delivery Method [facility] <RIGOBERTO Grant - Last Filed: 02/23/25 21:49> [facility] Narrative Medical decision making narrative: Patient presenting today due to several episodes of nausea and vomiting that started today. She has had multiple episodes similar to this in the past. She feels dehydrated and is requesting IV fluids. She was also given IV Reglan for nausea. She reports minimal lower abdominal cramping. Labs will be obtained to assess for electrolyte derangement, leukocytosis, anemia, hepatobiliary etiology, MAYANK, and UTI. Her CBC is largely unremarkable. Her sodium is 124, she does have a history of hyponatremia but has not been this low. She was given IV fluids. CT scan of the abdomen pelvis is negative for any acute abdominal findings, but does show trace bilateral pleural effusions. On reexamination she is feeling improved, however given her hyponatremia I do feel she would benefit from admission to the hospital. I will speak with the hospitalist. Urine is pending. She did become nauseous again and was given Zofran. I did speak with Dr. Sarah, she recommends repeating sodium given she has been around 127 in the past, we will see if this is improved after IV fluids. If improved, she can go home. She was started on maintenance fluids. She is tolerating p.o. fluids at the bedside and has had no vomiting here. Lab Data Attestation: I reviewed the patient's lab results. Labs: Laboratory Results - last 24 hr 02/23/25 02/23/25 02/23/25 16:30 18:06 18:30 WBC 3.4 L RBC 3.95 L Hgb 13.2 Hct 37.5 MCV 94.9 MCH 33.4 H MCHC 35.2 RDW Std Deviation 44.3 H RDW Coeff of Idania 12.6 Plt Count 233 MPV 9.4 Immature Gran % (Auto) 0.300 Neut % (Auto) 56.3 Lymph % (Auto) 35.5 [place] % (Auto) 7.3 Eos % (Auto) 0.0 Baso % (Auto) 0.6 Absolute Neuts (auto) 1.9 L Absolute Lymphs (auto) 1.21 Nucleated RBC % 0 Sodium 124 L Potassium 3.8 Chloride 90 L Carbon Dioxide 21.3 Anion Gap 13 BUN 14 Creatinine 0.68 L Estim Creat Clear Calc 47.36 L Est GFR (MDRD) Non-Af 86 BUN/Creatinine Ratio 20.7 H Glucose 130 H Calcium 7.8 Urine Color Straw Urine Clarity Clear Urine pH 7.0 Ur Specific [place] 1.010 Urine Protein 30 H Urine Glucose (UA) 100 H Urine Ketones 15 H Urine Occult Blood 50 H Urine Nitrite Negative Urine Bilirubin Negative Urine Urobilinogen Normal Ur Leukocyte Esterase Negative Urine RBC 0-5 SEEN Urine WBC 0-5 SEEN Ur Squamous Epith Cells 0-5 SEEN Urine Bacteria 0 SEEN Urine Mucus 0 SEEN 02/23/25 21:12 WBC RBC Hgb Hct MCV MCH MCHC RDW Std Deviation RDW Coeff of Idania Plt Count MPV Immature Gran % (Auto) Neut % (Auto) Lymph % (Auto) [place] % (Auto) Eos % (Auto) Baso % (Auto) Absolute Neuts (auto) Absolute Lymphs (auto) Nucleated RBC % Sodium 124 L Potassium Chloride Carbon Dioxide Anion Gap BUN Creatinine Estim Creat Clear Calc Est GFR (MDRD) Non-Af BUN/Creatinine Ratio Glucose Calcium Urine Color Urine Clarity Urine pH Ur Specific [place] Urine Protein Urine Glucose (UA) Urine Ketones Urine Occult Blood Urine Nitrite Urine Bilirubin Urine Urobilinogen Ur Leukocyte Esterase Urine RBC Urine WBC Ur Squamous Epith Cells Urine Bacteria Urine Mucus Radiography Diagnostic Testing: Clinical Impression(s) from Imaging Studies Abdomen/Pelvis CT 02/23/25 17:13 IMPRESSION: 1. No acute abdominopelvic finding. 2. Trace bilateral pleural effusions. Reading Location: [id number] <Dr. Mayur Tabares, DO - Last Filed: 02/24/25 00:03> [facility] Lab Data Labs: Laboratory Results - last 24 hr 02/23/25 02/23/25 02/23/25 16:30 18:06 18:30 WBC 3.4 L RBC 3.95 L Hgb 13.2 Hct 37.5 MCV 94.9 MCH 33.4 H MCHC 35.2 RDW Std Deviation 44.3 H RDW Coeff of Idania 12.6 Plt Count 233 MPV 9.4 Immature Gran % (Auto) 0.300 Neut % (Auto) 56.3 Lymph % (Auto) 35.5 [place] % (Auto) 7.3 Eos % (Auto) 0.0 Baso % (Auto) 0.6 Absolute Neuts (auto) 1.9 L Absolute Lymphs (auto) 1.21 Nucleated RBC % 0 Sodium 124 L Potassium 3.8 Chloride 90 L Carbon Dioxide 21.3 Anion Gap 13 BUN 14 Creatinine 0.68 L Estim Creat Clear Calc 47.36 L Est GFR (MDRD) Non-Af 86 BUN/Creatinine Ratio 20.7 H Glucose 130 H Calcium 7.8 Urine Color Straw Urine Clarity Clear Urine pH 7.0 Ur Specific [place] 1.010 Urine Protein 30 H Urine Glucose (UA) 100 H Urine Ketones 15 H Urine Occult Blood 50 H Urine Nitrite Negative Urine Bilirubin Negative Urine Urobilinogen Normal Ur Leukocyte Esterase Negative Urine RBC 0-5 SEEN Urine WBC 0-5 SEEN Ur Squamous Epith Cells 0-5 SEEN Urine Bacteria 0 SEEN Urine Mucus 0 SEEN 02/23/25 21:12 WBC RBC Hgb Hct MCV MCH MCHC RDW Std Deviation RDW Coeff of Idania Plt Count MPV Immature Gran % (Auto) Neut % (Auto) Lymph % (Auto) [place] % (Auto) Eos % (Auto) Baso % (Auto) Absolute Neuts (auto) Absolute Lymphs (auto) Nucleated RBC % Sodium 124 L Potassium Chloride Carbon Dioxide Anion Gap BUN Creatinine Estim Creat Clear Calc Est GFR (MDRD) Non-Af BUN/Creatinine Ratio Glucose Calcium Urine Color Urine Clarity Urine pH Ur Specific [place] Urine Protein Urine Glucose (UA) Urine Ketones Urine Occult Blood Urine Nitrite Urine Bilirubin Urine Urobilinogen Ur Leukocyte Esterase Urine RBC Urine WBC Ur Squamous Epith Cells Urine Bacteria Urine Mucus Radiography Diagnostic Testing: Clinical Impression(s) from Imaging Studies Abdomen/Pelvis CT 02/23/25 17:13 IMPRESSION: 1. No acute abdominopelvic finding. 2. Trace bilateral pleural effusions. Reading Location: [id number] Treatment and Re-Evaluation :: I have personally performed a face to face assessment of the patient and have reviewed the TERE Note. I performed a substantive portion of the visit including all aspects of the following. My friedman findings include: History: Patient presents with nausea, nausea and vomiting that began today. Patient states she has been unable to keep anything down. Patient states she feels constipated. Patient denies any hematemesis or coffee-ground emesis. Patient denies any abdominal pain. Patient denies any fevers or chills. Patient admits to some urinary incontinence today but denies any dysuria or hematuria. Exam: Vital signs are stable except for an elevated blood pressure of 193. Patient is afebrile. Patient is in no acute distress. Oral mucosa is pink and moist. Neck is supple. Trachea is midline. There is no JVD. Heart was regular rate and rhythm. Lungs are clear bilaterally. Abdomen is soft. Bowel sounds are normal. There is mild suprapubic tenderness. There is no rebound or guarding noted. Cranial nerves II through XII are intact. There are no focal motor or sensory deficits noted. Medical Decision Making: Differential diagnosis includes but is not limited to bowel obstruction, perforation, urinary tract infection, pyelonephritis, electrolyte abnormality, dehydration, and constipation. CBC will be obtained to assess for leukocytosis and anemia. Basic metabolic profile will be obtained to assess for electrolyte abnormality renal function. Urinalysis will be obtained to assess for urinary tract infection and hematuria. CT scan of the abdomen and pelvis will be obtained to assess for pyelonephritis, ureteral calculus, bowel obstruction and perforation. CBC was reviewed. White blood cell count was slightly low at 3.4. The remainder was within normal limits. Basic metabolic profile was reviewed. Sodium was low at 124. Chloride was 90. The remainder was essentially within normal limits. Urinalysis was reviewed. There is no evidence of urinary tract infection or hematuria. CT scan of the abdomen and pelvis was obtained. There is no acute abnormality noted. There are trace bilateral pleural effusions. This was interpreted by the radiologist and was also dependently reviewed by myself. Case was discussed with the hospitalist for admission due to the hyponatremia. She recommended repeating the sodium after IV fluids. This was repeated and was low at 124. Case was discussed with the hospitalist again. Patient has not had any further episodes of vomiting. Patient is concerned about going home because she states when she restricts her fluids, her sodium gets worse. Patient states she follows with Dr. Enciso for her hyponatremia and SIADH. Hospitalist will admit the patient for observation. Discharge Plan Triage Chief Complaint: Nausea/Vomiting ED Midlevel Provider: Cammie Barajas ED Provider: Mayur Tabares Dx/Rx/DC Orders Clinical Impression: Hyponatremia, SIADH (syndrome of inappropriate ADH production), Nausea and vomiting Prescriptions: No Action (DME) Bilaterl knee high compression stockings (10-20) See Rx Instructions .Route .MEDSUPPLY Qty: 2 0RF Rx Instructions: As directed calcium carbonate 600 mg calcium (1,500 mg) tablet 600 mg PO DAILY esomeprazole magnesium 40 mg capsule,delayed release(DR/EC) See Rx Instructions .ROUTE .COMPLEX Dose Instruction: take 1 capsule by mouth daily Rx Instructions: take 1 capsule by mouth daily; clobetasol 0.05 % cream 1 applic TOPICAL .COMPLEX Qty: 15 0RF Rx Instructions: 1 applic TOPICAL apply thin layer as directed bid X 2 weeks then daily X 2 weeks; apply thin layer; massage in to cover area ascorbate calcium (vitamin C) 500 mg tablet 500 mg PO QDAY sodium chloride 1,000 mg tablet,soluble 1,000 mg PO DAILY PRN (Reason: electrolyte replenishment) Qty: 30 3RF apixaban 2.5 mg tablet 2.5 mg PO BID Qty: 180 3RF cholecalciferol (vitamin D3) 10 mcg (400 unit) capsule 2,000 unit PO DAILY ondansetron 4 mg tablet,disintegrating 4 mg PO Q8H PRN PRN (Reason: Nausea) Qty: 10 0RF meclizine .Route PRN (Reason: dizziness, nausea ) dofetilide 250 mcg capsule 250 mcg PO BID Qty: 180 3RF midodrine 2.5 mg tablet 2.5 mg PO BID Qty: 180 3RF metoprolol succinate 25 mg tablet extended release 24 hr 25 mg PO .COMPLEX Qty: 135 3RF Rx Instructions: 1/2 tablet (12.5 mg) in the morning and a whole tablet (25 mg) at bedtime magnesium oxide 400 mg (241.3 mg magnesium) tablet 400 mg PO DAILY Qty: 90 3RF Primary Care Provider: Rochelle Brandt Referrals: Rochelle Brandt MD [Primary Care Provider] - Print Language: [place] Disposition Disposition: Acute Care Hospital [facility]
[2025-02-23] MEDS: Metoclopramide 10 MG/2 ML Vial IV (16:25)
[2025-02-23] MEDS: 0.9% Normal Saline (1000mL) 1,000 ML 999 ML IV (16:26)
[2025-02-23 16:31] VITALS: BMI 19.5
[2025-02-23 16:47] LABS: Absolute Lymphocyte Count 1.21 X10^3/uL (0.83-4.51); Absolute Neutrophil Count 1.9 X10^3/uL (2.0-7.7); Basophil# 0.02 X10^3/uL; Basophil% 0.6 % (0-1); Hematocrit 37.5 % (37-47); Hemoglobin 13.2 g/dL (12.0-15.0); Lymphocyte # 1.21 X10^3/ul (0.83-4.51); Lymphocyte % 35.5 % (19-41); Mean Corp Hgb Conc 35.2 g/dL (32-36); Mean Corpuscular Hgb 33.4 pg (27.0-32.0); Mean Corpuscular Volume 94.9 fL (81-99); Mean Platelet Vol. 9.4 fl (6.2-12.0); Monocyte# 0.25 X10^3/uL; Monocyte% 7.3 % (0-10); NRBC Flagged by Analyzer 0 % (0-5); Neutrophil # 1.92 X10^3/uL (2.7-7.7); Neutrophil % 56.3 % (47-70); Platelet Count 233 K/mm3 (150-450); RBC Distribution Width CV 12.6 % (11.6-14.6); RBC Distribution Width SD 44.3 fl (35.1-43.9); Red Blood Count 3.95 M/mm3 (4.2-5.4); White Blood Count 3.4 K/mm3 (4.4-11.0)
--- NOTE | 2025-02-23 17:13 | CT_ITS ---
PROCEDURE: ABDOMEN/PELVIS W IV CONT ONLY 02/23/2025 REASON FOR EXAM: ABDOMINAL PAIN, CONSTIPATION, VOMITING TECHNIQUE: Abdomen and pelvis CT with intravenous contrast. Coronal and Sagittal reconstruction series were provided. PATIENT PREPARATION: Per protocol ORAL CONTRAST TYPE: None. CONTRAST: Isovue 370 VOLUME: 100 mL One or more dose reduction techniques were used (e.g., Automated exposure control, adjustment of the mA and/or kV according to patient size, use of iterative reconstruction technique. RADIATION DOSE SUMMARY: CTDlvol: 20 mGy DLP: 300 mGycm COMPARISON: CTA chest, abdomen and pelvis 10/24/2021. FINDINGS: Lung bases: Bibasilar atelectasis/scarring. Trace bilateral pleural effusions. Focal area of tree-in-bud opacities within the right lower lobe, improved since comparison examination. Liver: The liver is normal in size without focal hepatic mass. The major portal veins are patent. Minimal biliary ductal dilation., compatible with patient age. Gallbladder: No radiopaque stones within the gallbladder. Spleen: Normal in size. Pancreas: Mildly atrophic. Adrenals: No adrenal mass. Kidneys: Moderate symmetric renal cortical scarring. No hydronephrosis or nephrolithiasis. Bladder: Distended and unremarkable. Reproductive Organs: Atrophic. Bowel: Small hiatal hernia. Moderate retained fecal material throughout the colon and rectum. The bowel loops are nondilated. No pneumoperitoneum. No inflammatory mass in the expected region of the appendix. Lymph nodes: No obvious lymphadenopathy. Vasculature: Mild mixed plaque of the aortoiliac vessels. Bones: Thoracolumbar spondylosis. Unchanged, chronic severe L1 vertebral body compression fracture deformity. CT/Abdomen/Pelvis W IV Cont ONLY IMPRESSION: 1. No acute abdominopelvic finding. 2. Trace bilateral pleural effusions. Reading Location: [id number]
[2025-02-23 18:05] VITALS: BP 124/60; PULSE 79; RESP 18
[2025-02-23 18:23] LABS: Bacteria 0 SEEN /hpf (None Seen); Mucous, Urine 0 SEEN /hpf (<or=2+)
[2025-02-23 18:58] LABS: Anion Gap 13 (5-15); BUN 14 mg/dL (4-19); BUN/Creat Ratio 20.7 RATIO (10-20); Calcium,Total 7.8 mg/dL (7.6-11.0); Carbon Dioxide 21.3 mmol/L (21.0-32.0); Chloride 90 mmol/L (98-108); Creatinine, Serum 0.68 mg/dL (0.70-1.20); EST Glomerular Filtration Rate 86 (>60); Estimated Creatinine Clearance 47.36 ml/min (50-250); Glucose 130 mg/dL (70-99); Potassium 3.8 mmol/L (3.3-5.1); Sodium Level 124 mmol/L (133-145)
[2025-02-23 19:32] LABS: Color, Urine Straw (Yellow); Glucose, Dipstick 100 mg/dl (Normal); Ketone-Dipstick 15 mg/dl (Negative); Leukocyte Esterase-Dipstick Negative /ul (Negative); Nitrite-Dipstick Negative (Negative); Occult Blood-Urine 50 /ul (Negative); Protein-Dipstick 30 mg/dl (Negative); Urine Bilirubin Dipstick Negative (Negative); Urine Clarity Clear (Clear); Urine Urobilinogen Normal (Normal)
[2025-02-23 20:00] VITALS: BP 127/72; PULSE 75; RESP 16
[2025-02-23 20:26] LABS: Red Blood Cells-Urine 0-5 SEEN /hpf (0-5); White Blood Cells 0-5 SEEN /hpf (0-5)
[2025-02-23 20:27] LABS: Squamous Epithelial Cells - UA 0-5 SEEN /hpf (5-10)
[2025-02-23] MEDS: Ondansetron 4 MG/2 ML Vial IV (20:35)
[2025-02-23 20:46] VITALS: BP 127/75; PULSE 75; RESP 16; TEMP 36.6; O2SAT 98
[2025-02-23] MEDS: 0.9% Normal Saline (1000mL) 1,000 ML 150 ML IV (21:51)
[2025-02-23 22:02] LABS: Sodium Level 124 mmol/L (133-145)
[2025-02-23 23:27] VITALS: BP 121/70; PULSE 78; RESP 18
[2025-02-24] VITALS (12 sets, daily range): BP systolic 119–169; BP diastolic 57–89; PULSE 67–137; RESP 15–16; TEMP 36.8–37.6; O2SAT 93–99; BMI 18.3; BMI 18.7
--- OUTSIDE RECORDS SUMMARY | 2025-02-24 00:28 | XMS RPT_ITS | CCD ---
Author Organization [facility] Care Team Providers Care Assembler Show Motor Name Role Phone Roof GARLAND MACHINE OPERATOR, Handy Sullivan Unavailable Dr. Rochelle Hackett Primary Care Provider Dr. Rochelle Hackett Referring Provider Dr. Larissa Nguyễn Attending Provider Dr. Erick Blanca Attending Provider Rochelle Hackett MD Primary Care Provider Dr. Rochelle Hackett Primary Care Provider Dr. Rochelle Hackett Referring Provider RIGOBERTO David Attending Provider Dr. Rochelle Hackett Primary Care Provider Dr. Rochelle Hackett Referring Provider Dr. Larissa Nguyễn Attending Provider Dr. Brian Cooley Attending Provider Rochelle Hackett MD Primary Care Provider Dr. Erick Blanca Attending Provider RIGOBERTO Silva Attending Provider Rochelle Hackett MD Primary Care Provider Dr. Rochelle Hackett Primary Care Provider Dr. Erick Blanca Attending Provider Dr. Rochelle Hackett Referring Provider RIGOBERTO Silva Attending Provider RIGOBERTO David Attending Provider Dr. Rochelle Hackett Primary Care Provider Dr. Rochelle Hackett Referring Provider Dr. Larissa Nguyễn Attending Provider Dr. Erick Blanca Attending Provider Dr. Rochelle Hackett Primary Care Provider Dr. Rochelle Hackett Referring Provider RIGOBERTO David Attending Provider Dr. Erick Blanca Attending Provider Silva GARLAND MACHINE OPERATOR, GARLAND MACHINE OPERATOR-C Tomeka Attending Provider Jose GARLAND MACHINE OPERATOR, GARLAND MACHINE OPERATOR-C Carolyn Attending Provider Dr. Rochelle Hackett Primary Care Provider Dr. Rochelle Hackett Referring Provider Dr. Erick Blanca Referring Provider Dr. Erick Blanca Other Provider Dr. Eagle Enciso Other Provider Dr. Jamel Carty Attending Provider Dr. Rochelle Hackett Primary Care Provider Dr. Rochelle Hackett Referring Provider Dr. Erick Blanca Attending Provider Silva GARLAND MACHINE OPERATOR, GARLAND MACHINE OPERATOR-C Tomeka Attending Provider Jose SALVADOR NP-C Carolyn Attending Provider Dr. Erick Blanca Referring Provider Dr. Erick Blanca Other Provider Dr. Eagle Enciso Other Provider Dr. Jamel Carty Attending Provider RIGOBERTO David Attending Provider Dr. Rochelle Hackett Primary Care Provider Dr. Rochelle Hackett Referring Provider Dr. Brian Cooley Attending Provider [phone] RIGOBERTO David Referring Provider RIGOBERTO David Other Provider [phone] Roof GARLAND MACHINE OPERATOR, GARLAND MACHINE OPERATOR-C Handy Sullivan Attending Provider Dr. Rochelle Hackett Primary Care Provider Dr. Rochelle Hackett Referring Provider Dr. Brian Cooley Referring Provider [phone] Erick Blanca Attending Provider Dr. Erick Blanca Referring Provider Silva GARLAND MACHINE OPERATOR, GARLAND MACHINE OPERATOR-C Tomeka Attending Provider Dr. Rochelle Hackett Primary Care Provider Dr. Rochelle Hackett Referring Provider Dr. Rochelle Hackett Primary Care Provider Dr. Brian Cooley Attending Provider [phone] Brian Cooley Referring Provider [phone] RIGOBERTO David Referring Provider RIGOBERTO David Other Provider [phone] Roof GARLAND MACHINE OPERATOR, GARLAND MACHINE OPERATOR-Eri Sullivan Attending Provider Dr. Erick Blanca Attending Provider Dr. Erick Blanca Referring Provider Dr. Rochelle Hackett Referring Provider Silva GARLAND MACHINE OPERATOR, GARLAND MACHINE OPERATOR-C Tomeka Attending Provider Dr. Viet Ortez Emergency Provider Dr. Michelle Hunt Admit Provider Dr. Michelle Hunt Other Provider Dr. Marty Bassett Attending Provider Danyelle, Dr. Ferguson Other Provider Dr. Rochelle Hackett Primary Care Provider Dr. Rochelle Hackett Primary Care Provider Dr. Erick Blanca Attending Provider Dr. Erick Blanca Referring Provider Balwinder FRANKLIN, PA Tanesha Marlow Attending Provider Rochelle Hackett MD Primary Care Provider ROCHELLE HACKETT Referring Unavailable ROCHELLE HACKETT Primary Care Unavailable Dr. Rochelle Hackett Primary Care Provider Brian Cooley MD Unavailable Rochelle Hackett MD Primary Care Provider Marek THAO, Zak Alvarado Unavailable Miguel Angel CHENG, Jane Ventura Unavailable Older SERVICES DELIVERY DRIVER.FLIGHT FOLLOWER, Al Unavailable Safia CHENG, Sofía Unavailable Amador RN, Anayeli Unavailable Dr. Rochelle Hackett MD Primary Care Provider Dr. Rochelle Hackett MD Referring Provider Dr. Brian Cooley MD Attending Provider Dr. Larissa Nguyễn MD Attending Provider Dr. Carlos Sheth MD Referring Provider Dr. Maya Sal MD Attending Provider Dr. Maya Sal MD Referring Provider Dr. Tejinder Mora MD Attending Provider Dr. Tejinder Mora MD Emergency Provider Fernie THAO, Dr. Guillermo Attending Provider Dr. Eagle Enciso MD Referring Provider Dr. Rochelle Hackett MD Attending Provider Miguel Angel CHENG, Jane Ventura Unavailable Safia CHENG, Sofía Unavailable GANTA, ROCHELLE C Referring Unavailable MAYA SAL Attending Unavailable GANTA, ROCHELLE C Primary Care Unavailable SRAVANDANA CHAPARRO Attending Unavailable GANTA, ROCHELLE C Primary Care Unavailable GANTA, ROCHELLE C Referring Unavailable GANTA, ROCHELLE Attending Unavailable OLDER, AL Referring Unavailable GANTA, ROCHELLE Primary Care Unavailable OLDER, AL Attending Unavailable GANTA, ROCHELLE Primary Care Unavailable OLDER, AL Referring Unavailable GANTA, ROCHELLE Primary Care Unavailable OLDER, AL Referring Unavailable GANTA, ROCHELLE Primary Care Unavailable GANTA, ROCHELLE Referring Unavailable GANTA, ROCHELLE Primary Care Unavailable GANTA, ROCHELLE Attending Unavailable GANTA, ROCHELLE Primary Care Unavailable TESTRAKESOL Attending Unavailable TESTRAKE SOL Referring Unavailable GANTA, ROCHELLE Primary Care Unavailable TESTRASOL FAY Attending Unavailable GANTA, ROCHELLE Primary Care Unavailable GANTA, ROCHELLE Attending Unavailable GANTA, ROCHELLE Primary Care Unavailable GANTA, ROCHELLE Attending Unavailable GANTA, ROCHELLE Primary Care Unavailable GANTA, ROCHELLE Referring Unavailable GANTA, ROCHELLE Primary Care Unavailable TESTRAKE SOL Attending Unavailable GANTA, ROCHELLE Primary Care Unavailable GANTA, ROCHELLE Referring Unavailable GANTA, ROCHELLE Primary Care Unavailable OLDER, AL Referring Unavailable GANTA, ROCHELLE Primary Care Unavailable Ganta, Rochelle Primary Care Unavailable MerylCarlos Referring Unavailable Isckarus, Mansour Attending Unavailable Ganta, Rochelle Primary Care Unavailable Baddour, Erick Referring Unavailable Baddour, Erick Attending Unavailable Ganta, Rochelle Primary Care Unavailable Ganta, Rochelle Referring Unavailable Baddour, Erick Attending Unavailable Ganta, Rochelle Primary Care Unavailable Ganta, Rochelle Referring Unavailable YasirJeffryMorrice Attending Unavailable Ganta, Rochelle Primary Care Unavailable Ganta, Rochelle Referring Unavailable Baddour, Erick Attending Unavailable Ganta, Rochelle Primary Care Unavailable Ganta, Rochelle Referring Unavailable Demiter, Jayjay Attending Unavailable Ganta, Rochelle Referring Unavailable Baddour, Erick Attending Unavailable Ganta, Rochelle Primary Care Unavailable Ganta, Rochelle Primary Care Unavailable Ganta, Rochelle Referring Unavailable Samuel GARLAND MACHINE OPERATOR, Tasha Attending Unavailable Ganta, Rochelle Primary Care Unavailable Ganta, Rochelle Referring Unavailable Isckarus, Larissa Attending Unavailable Ganta, Rochelle Primary Care Unavailable Silva GARLAND MACHINE OPERATOR, Tomeka Attending Unavailable Silva GARLAND MACHINE OPERATOR, Tomeka Referring Unavailable Ganta, Rochelle Primary Care Unavailable Magalang, Maya Referring Unavailable Magalang, Maya Attending Unavailable Ganta, Rochelle Primary Care Unavailable Ganta, Rochelle Attending Unavailable Ganta, Rochelle Primary Care Unavailable Jay, Girish Attending Unavailable Ganta, Rochelle Primary Care Unavailable Mora, Tejinder Attending Unavailable Ganta, Rochelle Primary Care Unavailable Fernie, Jayaprakas Referring Unavailable Fernie, Jayaprakas Attending Unavailable [facility] Unavailable Prayson, Toribio Referring Unavailable Prayson, Toribio Attending Unavailable Allergies Allergy Classification Reported Allergen(s) Allergy Type Date of Onset Reaction(s) Facility (20 sources) Adhesive Tape; Translations: [ADHESIVE TAPE] allergy to substance 7 Unknown, Rash [facility] Work Phone: [phone] (20 sources) bee pollen; Translations: [POLLEN] allergy to substance 5 unknown [facility] Work Phone: [phone] (20 sources) cantaloupe allergenic extract; Translations: [CANTALOUPE] Drug Allergy 5 unknown, Anaphylaxis [facility] Work Phone: [phone] (20 sources) erythromycin; Translations: [ERYTHROMYCIN] Drug Allergy 5 GI Upset [facility] Work Phone: [phone] (20 sources) Grass pollen; Translations: [GRASS POLLEN] drug allergy 5 unknown [facility] Work Phone: [phone] (3 sources) lansoprazole Drug Allergy 7 unknown [facility] Work Phone: [phone] (20 sources) mold extract; Translations: [MOLD] Drug Allergy 5 unknown [facility] Work Phone: (3 sources) penicillin Drug Allergy 1 Inside of mouth swelled [facility] Work Phone: [phone] (3 sources) Sulfonamides (Antibiotic) drug allergy 7 unknown [facility] Work Phone: [phone] (20 sources) Erythromycin Drug Allergy 2 Unknown [facility] Comment on above: STOMACH PAIN (20 sources) lansoprazole; Translations: [LANSOPRAZOLE] Drug Allergy 4 Diarrhea [facility] Work Phone: Comment on above: NAUSEA (20 sources) Penicillins; Translations: [PENICILLINS] Allergy to substance 5 Rash, Swelling [facility] Work Phone: (20 sources) Pollen Allergy to substance 2 Unknown [facility] (20 sources) Adhesive Tape; Translations: [ADHESIVE TAPE (ROSINS)] Allergy to substance 4 Rash [facility] Work Phone: (20 sources) Sulfonamides (Antibiotic); Translations: [SULFA (SULFONAMIDE ANTIBIOTICS)] Propensity to adverse reactions 5 [facility] Work Phone: (20 sources) Sulfonamides (Antibiotic) Allergy to substance 2 Other [facility] (20 sources) Vibegron; Translations: [VIBEGRON] Drug Intolerance 3 Diarrhea [facility] Work Phone: (2 sources) *Adhesive Tape Propensity to adverse reactions 3 Itching, Swelling, Redness [facility] Work Phone: (1 source) Erythromycin Drug Allergy 5 [facility] (1 source) lansoprazole Drug Allergy 5 [facility] (1 source) Pollen Drug allergy (disorder) 5 [facility] (1 source) Sulfonamides (Antibiotic) Drug allergy (disorder) 5 [facility] Medications Current Medications Medication Drug Class(es) Dates Sig (Normalized) Sig (Original) apixaban 5 mg oral tablet (20 sources) Factor Xa Inhibitor Start: 02-12-2015 End: 08-05-2024 take 1 tablet by mouth twice daily Apixaban (Eliquis) 5 mg tablet Active 5 mg PO TWICE A DAY 60 August 05, 2024 11:51am apixaban 2.5 MG tablet Take by mouth 2 times daily. 5mg bid Active APIXABAN (ELIQUI S ORAL) Take by mouth twice daily. Active APIXABAN (ELIQUI S ORAL) Take by mouth twice daily. 0 Active Comment on above: Take by mouth twice daily. BENEFIBER, GUAR GUM, ORAL (20 sources) BENEFIBER, GUAR GUM, ORAL Take 2 teaspoonsful by mouth two times a day as needed. Active BENEFIBER, GUAR GUM, ORAL Take 2 teaspoonsful by mouth two times a day as needed. 0 Active Comment on above: Take 2 teaspoonsful by mouth two times a day as needed. Bilaterl knee high compression stockings (10-20) (20 sources) Start: 05-29-2022 Bilaterl knee high compression stockings (10-20) Active 0 .Route .MEDSUPPLY 2 May 28, 2022 11:00pm As directed Start: 05-29-2022 Bilaterl knee high compression stockings (10-20) Active 0 .Route .MEDSUPPLY 2 May 29, 2022 12:00am As directed calcium ascorbate 500 mg oral tablet (1 source) Start: 06-07-2024 take 1 tablet by mouth once daily Ascorbate Calcium (Vitamin C) 500 mg tablet Active 500 mg PO daily June 07, 2024 12:00am calcium carbonate 1500 mg oral tablet (18 sources) Start: 10-14-2022 take 1 tablet by mouth once daily Calcium Carbonate 600 mg calcium (1,500 mg) tablet Active 600 mg PO DAILY October 14, 2022 1:00am calcium carbonate 1500 mg / cholecalciferol 200 unt oral tablet (20 sources) Vitamin D Start: 05-24-2012 End: 10-14-2022 take 1 tablet by mouth once daily calcium carbonate 600 mg-cholecalciferol 200 units 600 mg-5 mcg (200 unit) tab Take 1 tablet by mouth once daily. 05/24/2012 Active take 2 tablets by mouth once min ly Calcium Carbonate-Vitamin D 600-125 MG-UNIT PO TABS 2 Tabs daily. Active Comment on above: Take 1 tablet by louise th once daily. cholecalciferol 0.01 mg oral capsule (20 sources) Vitamin D Start: 10-14-19 take 1 capsule by mouth once daily Cholecalciferol (Vitamin D3) 10 mcg (400 unit) capsule Active 2000 U PO DAILY October 14, 2022 3:11pm Start: 07-13-2019 End: 10-14-2022 Cholecalciferol (Vitamin D3) 400 UNIT capsule Discontinued 1000 U PO DAILY July 13, 2019 12:00am October 14, 2022 3:13pm Start: 07-13-2019 End: 10-14-2022 take 1000 [IU] by mouth once daily Cholecalciferol (Vitamin D3) Discontinued 1000 UNIT PO DAILY July 13, 2019 12:00am October 14, 2022 3:13pm take 1 tablet by louise th once daily Cholecalciferol (VITAMIN D) 1000 UNITS PO TABS 1 tablet daily. Active clobetasol propionate 0.5 mg/ml topical cream (20 sources) Corticosteroid Start: 08-05-2022 End: 03-08-2024 Clobetasol 0.05 % cream Active 1 NMA TOPICAL .COMPLEX March 08, 2024 11:36am 1 applic TOPICAL apply thin layer as directed bid X 2 weeks then daily X 2 weeks; apply thin layer; massage in to cover area Start: 05-03-2020 End: 05-08-2021 Clobetasol 0.05 % cream Disc ontinued 1 NMA TOPICAL .COMPLEX May 03, 2020 12:00am May 08, 2021 2:09pm 1 applic TOPICAL apply thin layer as directed bid X 2 weeks then daily X 2 weeks; apply thin layer; massage in to cover area Cranberry (2 sources) Non-Standardized Food Allergenic Extract, Non-Standardized Plant Allergenic Extract Start: 01-18-2024 take 1 capsule by mouth twice daily at mealtime Cranberry 500 mg capsule Active 500 mg PO TWICE A DAY January 18, 2024 12:00am administer with meals Start: 01-18-2024 take 500 mg by mouth twice daily at mealtime Cranberry Active 500 MG PO TWICE A DAY January 18, 2024 12:00am administer with meals dofetilide 0.25 mg oral capsule (20 sources) Antiarrhythmic Start: 10-06-2024 take 1 capsule by mouth twice daily Dofetilide 250 mcg capsule Active 250 ug PO TWICE A DAY October 06, 2024 9:06am Start: 10-14-2013 take 1 tablet by louise th twice daily DOFETILIDE 250 MCG CAPS One tablet by mouth twice daily DOFETILIDE [id number] Brian Cooley MD Start: 07-21-2013 End: 09-28-2013 take 1 tablet by mouth twice daily TIKOSYN 250 MCG CAPS One tablet by mouth twice daily DOFETILIDE [id number] Brian Cooley MD Start: 07-20-2013 End: 10-06-2024 Dofetilide 250 mcg capsule Discontinued 0 .ROUTE .COMPLEX 180 October 12, 2023 9:07am October 06, 2024 9:06am TAKE 1 CAPSULE EVERY 12 HOURS FOR ATRIAL FIBRILLATION Comment on above: Take 250 mcg by mout h twice daily. Ergocalciferol (20 sources) Provitamin D2 Compound Start: 10-07-19 ergocalciferol(VITAM IN D 400 UNIT CAP) Take 1,000 Units by mouth once daily. 0 10/07/2021 Active Comment on above: Take 1,000 Units by mouth once daily. esomeprazole 40 mg delayed release oral capsule (20 sources) Proton Pump Inhibitor Start: 12-19-19 23 take 1 capsule by mouth once daily Esomeprazole Magnesium Active 0 .ROUTE .COMPLEX December 18, 2022 9:21am take 1 capsule by mouth daily Start: 12-18-2022 take 1 capsule by mo ut once daily Esomeprazole Magnesium Active 0 .ROUTE .COMPLEX December 18, 2022 10:21am take 1 capsule by mouth daily Start: 02-03-2019 End: 02-22-2025 take 1 capsule by mouth once daily before breakfast esomeprazole (NEXIUM) 40 mg capsule Take 1 capsule by mouth daily before breakfast. 1/2 hr before meal. 90 capsule 3 02/22/2025 Active Comment on above: Take 1 capsule by mo uth daily before breakfast. 1/2 hr before meal. famotidine 20 mg oral tablet (20 sources) Histamine-2 Receptor Antagonist Start: 02-01-2025 take 1 tablet by mouth every twenty-four hours as needed famotidine (PEPCID) 20 mg tablet Take 1 tablet by mouth at bedtime as needed. 30 tablet 3 02/01/2025 Active Start: 09-08-2023 take 1 tablet by louise th every twenty-four hours as needed famotidine (PEPCID) 20 mg tablet take 1 tablet by mouth at bedtime if needed 30 tablet 3 09/08/2023 Active Start: 11-13-2021 End: 05-08-2023 take 1 tablet by mouth at bedtime famotidine (PEPCID) 20 mg tablet take 1 tablet by mouth at bedtime if needed 30 tablet 3 01/06/2022 05/08/2023 Discontinued Start: 12-19-2010 PEPCID AC 10 M G CHEW As needed FAMOTIDINE [id number] Jacquelin Mclean Start: 12-19-2010 End: 07-20-2014 PEPCID AC 10 MG CHEW As need ed FAMOTIDINE [id number] Brian Cooley MD take 10 mg by mouth before mealtime Famotidine (PEPCID AC) 10 MG PO CHEW as needed. Active Comment on above: Take 1 tablet by louise th at bedtime as needed. take 1 tablet by louise th at bedtime if needed ferrous sulfate 325 mg oral tablet (1 source) Start: 03-08-20 take 1 tablet by mouth once daily Ferrous Sulfate (Ferosul) 325 mg (65 mg iron) tablet Active 325 mg PO DAILY March 08, 2024 12:00am fludrocortisone acetate 0.1 mg oral tablet (20 sources) Start: 04-07-20 End: 09-09-20 24 take 0.5 tablet by mouth once Fludrocortisone 0.1 mg tablet Discontinued 0.05 mg .ROUTE .COMPLEX July 04, 2024 12:11pm September 09, 2024 12:55pm Take 1/2 tablet po every Thursday, Thursday and Thursday Start: 04-07-2023 End: 09-22-2023 take 0.5 tablet by mouth once Fludrocortisone Active 0 .05 MG .ROUTE .COMPLEX September 22, 2023 9:51am Take 1/2 tablet po every Thursday, Thursday and Thursday Start: 05-29-2022 End: 04-07-2023 take 0.05 mg by mouth once Fludrocortisone 0.1 mg tabl et Discontinued 0.05 mg .ROUTE .COMPLEX 8 October 14, 2022 3:43pm April 07, 2023 2:14pm 0.05 mg po every Thursday, Thursday and Thursday Start: 05-29-2022 End: 04-07-2023 take 0.05 mg by mouth once Fludrocortisone Discontinue d 0.05 MG .ROUTE .COMPLEX 8 October 14, 2022 2:43pm April 07, 2023 1:14pm 0.05 mg po every Thursday, Thursday and Thursday Start: 04-14-2022 End: 05-29-2022 take 0.5 tablet by mouth once, then take 1 tablet by mouth once Fludrocortisone Discontinued 0 .ROUTE .COMPLEX 60 April 14, 2022 3:05pm May 29, 2022 11:18am 1/2 tablet PO every Thursday and Thursday and 1 tablet every Thursday Start: 11-25-2021 End: 05-29-2022 take 0.5 tablet by mouth once, then take 1 tablet by mouth once Fludrocortisone 0.1 mg tablet Discontinued 0 .ROUTE .COMPLEX 60 April 14, 2022 4:05pm May 29, 2022 12:18pm 1/2 tablet PO every Thursday and Thursday and 1 tablet every Thursday Start: 11-13-2021 End: 11-10-2024 fludrocortisone (FLORINEF) 0 .1 mg tablet Taking 3 times a week 12 tablet 3 11/10/2024 Active Start: 02-24-2020 End: 11-25-2021 take 1 tablet by mouth once Fludrocortisone 0.1 mg tab let Discontinued 0.1 mg PO .M/W/F September 20, 2020 11:49am September 20, 2020 7:00pm 0.1 mg PO every Thursday, Thursday and Thursday Start: 02-23-2020 End: 08-16-2020 Fludrocortisone 0.1 mg table t Discontinued 0.1 mg PO .COMPLEX 8 July 02, 2020 11:29am August 16, 2020 7:01pm 0.1 mg PO on Mondays and ; Comment on above: Taking 3 times a wee k lidocaine 0.05 mg/mg medicated patch (17 sources) Antiarrhythmic, Amide Local Anesthetic Start: apply 1 dose transdermal route every twelve hours lidocaine (LIDODERM) 5 % Indications: Acute midline back pain, unspecified back location Place patch to back for 12 hours. Remove old patch and wait 12 hours prior to placing new patch. 14 patch 02/01/2025 Active Start: 11-02-2024 apply 1 dose transde rmal route every twelve hours lidocaine (LIDODERM) 5 % Indications: Acute midline back pain, unspecified back location Place patch to back for 12 hours. Remove old patch and wait 12 hours prior to placing new patch. 14 Patch 11/02/2024 Active Start: 04-21-2022 End: 04-21-2022 lidocaine (PF) 10 mg/mL (1 % ) 1 mL injection (XYLOCAINE) Magnesium Glycinate 120mg 3 at night Stress, blood sugar, thyroid/hormones/adrenals/sleep/energy/toxins/muscles/constipation/asthma (20 sources) Start: 03-21-2021 Magnesium Glycinate 120mg 3 at night Stress, blood sugar, thyroid/hormones/adrenals/sleep/energy/toxins/muscles/constipation/asthma Work up to 3 capsules with meals at night - can cause loose stools 0 03/21/2021 Active Comment on above: Work up to 3 capsule s with meals at night - can cause loose stools meclizine (20 sources) A n t i e m e t i c Start: 10-30-2024 meclizine Active .ROUTE as n eeded for dizziness, nausea October 30, 2024 1:00am Start: 08-29-2023 End: 01-23-2024 take 1 tablet by mouth three times daily as needed for dizziness Meclizine 25 mg tablet Discontinued 25 mg PO THREE TIMES A DAY as needed for dizziness 9 3 August 29, 2023 4:22pm January 23, 2024 4:12pm Start: 11-09-2020 End: 05-08-2023 take 1 tablet by mouth every six hours as needed for nausea and dizziness and nausea and dizziness meclizine (ANTIVERT) 25 mg tab Indications: Nausea , Dizziness Take 1 tablet by mouth every 6 hours as needed (dizziness). 40 tablet 3 05/08/2023 Active Start: 11-14-2019 End: 11-21-2023 take 1 tablet by mouth three times daily as needed Meclizine 12.5 MG tablet Discontinued 12.5 mg PO 3 TIMES DAILY NEEDED as needed for Vertigo November 14, 2019 1:00am November 21, 2023 10:06pm Start: 04-07-2016 MECLIZINE HCL 12.5 MG TABS as needed for nausea MECLIZINE HCL [id number] Evangelina Armando RN Start: 04-07-2016 MECLIZINE HCL 25 MG TABS as needed MECLIZINE HCL [id number] Evangelina Armando RN Start: 12-19-2010 End: 09-08-2013 MECLIZINE HCL 12.5 MG TABS A s needed, takes rarely MECLIZINE HCL [id number] Debra Leung RN Comment on above: Take 1 tablet by louise every 6 hours as needed (dizziness). midodrine hydrochloride 2.5 mg oral tablet (20 sources) alpha-Adrenergic Agonist Start: End: take 1 tablet by mouth twice daily Midodrine 2.5 mg tablet Active 2.5 mg PO TWICE A DAY November 08, 2024 4:38pm Start: 09-22-2023 End: 10-01-2023 take 1 tablet by mouth once daily in the morning Midodrine 2.5 mg tablet Discontinued 2.5 mg PO EVERY MORNING September 22, 2023 1:00am October 01, 2023 3:08pm molnupiravir 200 mg capsule (2 sources) Start: 09-05-2022 End: 09-10-2022 take 4 capsules by mouth twice daily molnupiravir 200 mg capsule Indications: Acute COVID-19 Take 4 capsules by mouth twice daily for 5 days. 40 capsule 0 09/05/2022 09/10/2022 Active Comment on above: Take 4 capsules by m out twice daily for 5 days. nitrofurantoin, macrocrystals 25 mg / nitrofurantoin, monohydrate 75 mg oral capsule (17 sources) Nitrofuran Antibacterial Start: 11-02-2024 End: 11-07-2024 take 1 capsule by mouth twice daily at mealtime nitrofurantoin monohydrate and macrocrystal (MACROBID) 100 mg capsule Take 1 capsule by mouth two times a day with meals for 5 days. 10 capsule 11/02/2024 11/07/2024 Active Start: 12-08-2023 End: 01-18-2024 take 1 capsule by mouth every twelve hours Nitrofurantoin Monohyd/M-Cryst 100 mg capsule Discontinued 100 mg PO EVERY 12 HOURS December 08, 2023 12:00am January 18, 2024 11:25am Start: 09-02-2023 End: 11-02-2023 take 1 capsule by mouth twice daily nitrofurantoin monohydrate and macrocrystal (MACROBID) 100 mg capsule Take 1 capsule by mouth two times a day. 14 capsule 0 09/02/2023 11/02/2023 Discontinued Start: 08-19-2022 End: 08-24-2022 take 1 capsule by mouth twice daily nitrofurantoin monohydrate and macrocrystal (MACROBID) 100 mg capsule Take 1 capsule by mouth twice daily for 5 days. 10 capsule 0 08/19/2022 08/24/2022 Active Comment on above: Take 1 capsule by mo ut twice daily for 5 days. Take 1 capsule by mo uth two times a day. nystatin 100 unt/mg topical powder (2 sources) Polyene Antifungal Start: 11-02-19 End: 12-02-19 nystatin (MYCOSTATIN) powder Indications: Yeast dermatitis Apply 1 application to affected area three times a day. 60 g 1 11/02/2023 12/02/2023 Active Comment on above: Apply 1 application to affected area three times a day. ondansetron 4 mg disintegrating oral tablet (2 sources) Serotonin-3 Receptor Antagonist Start: 01-23-20 take 1 tablet by mouth every eight hours as needed for nausea Ondansetron 4 mg tablet,disintegrating Active 4 mg PO EVERY 8 HOURS NEEDED as needed for Nausea January 23, 2024 12:00am sodium chloride 1000 mg oral tablet (20 sources) Start: 03-03-20 End: 12-27-20 24 take 1 tablet by mouth once daily as needed Sodium Chloride 1,000 mg tablet,soluble Active 1000 mg PO DAILY as needed for electrolyte replenishment September 09, 2024 12:21pm Start: 05-08-2021 End: 05-29-2022 Sodium Chloride 1,000 mg tablet,soluble Discontinued 1000 mg PO 1 to 4 times daily May 08, 2021 12:00am May 29, 2022 11:24am Start: 04-04-2016 End: 02-23-2020 take 1 tablet by mouth twice daily Sodium Chloride 1 GM tablet Discontinued 1 g PO TWICE A DAY June 10, 2019 10:10am February 23, 2020 11:09am tiZANidine 2 mg oral tablet (15 sources) Central alpha-2 Adrenergic Agonist Start: 11-02-2024 take 1 tablet by mouth every six hours as needed tiZANidine (ZANAFLEX) 2 mg tablet Take 1 tablet by mouth every 6 hours as needed. 15 tablet 11/02/2024 Active zoledronic acid (20 sources) Bisphosphonate zoledronic acid (ZOMETA INTRAVENOUS) Inject intravenously. Every 6 months Active zoledronic acid (ZOMETA INTRAVENOUS) Inject intravenously. Every 6 months 0 Active Completed/Discontinued Medications Medication Drug Class(es) Dates Sig (Normalized) Sig (Original) acetaminophen 325 mg oral tablet (20 sources) Start: 12-19-2010 TYLENOL 325 MG TABS As needed, takes occasionally ACETAMINOPHEN [id number] Jacquelin Mclean take 2 tablets by mo uth every six hours as needed acetaminophen (TYLENOL) 325 mg tablet Ta ke 650 mg by mouth every 6 hours as needed. Active acetaminophen (T YLENOL) 325 MG PO tablet as needed. Active Comment on above: Take 650 mg by mouth every 6 hours as needed. anastrozole 1 mg oral tablet (20 sources) Aromatase Inhibitor Start: 7 End: 4 take 1 tablet by mouth at bedtime Anastrozole 1 mg tablet Discontinued 1 mg PO AT BEDTIME 90 December 18, 2022 9:31am April 23, 2023 9:44am Comment on above: Take 1 mg by mouth o nce daily. ascorbic acid 500 mg oral tablet (6 sources) Start: 1 End: 3 take 1 tablet by mouth once daily VITAMIN C 500 MG TABS One tablet by mouth daily ASCORBIC ACID [id number] Brian Cooley MD ascorbic acid 113 mg / beta carotene 7160 mg / cuprous oxide 0.4 mg / dl-alpha tocopheryl acetate 100 unt / zinc oxide 17.4 mg oral tablet (2 sources) Vitamin C End: 5 take 1 tablet by mouth once daily Multiple Vitamins-Minerals (OCUVITE PRESERVISION) PO TABS 1 Tab daily. 09/29/2024 Discontinued (Therapy completed) aspirin 81 mg oral tablet (20 sources) Nonsteroidal Anti-inflammatory Drug Start: 3 End: 5 take 1 tablet by mouth once daily ASPIRIN 81 MG TABS One tablet by mouth daily ASPIRIN [id number] Tanesha Britt PA-C Start: 12-19-2010 End: 09-29-2024 take 1 tablet by mouth once daily Aspirin 81 MG tablet Discontinued 81 mg PO DAILY@0800 September 01, 2013 1:00am October 10, 2013 1:29pm atorvastatin 10 mg oral tablet (20 sources) HMG-CoA Reductase Inhibitor Start: 12-24-2020 End: 05-08-2021 take 1 tablet by mouth once daily Atorvastatin 10 mg tablet Discontinued 0 .ROUTE .COMPLEX 120 April 22, 2021 11:46am May 08, 2021 1:43pm take 1 tablet by mouth once daily BREAST PROSTHESIS (3 sources) Start: 05-11-2017 BREAST PROSTHE SIS Left breast cancer BREAST PROSTHESIS Josie Del Toro PA-C BREAST PROSTHESIS, LEFT (3 sources) Start: 05-11-2017 BREAST PROSTHE SIS, LEFT Left breast cancer BREAST PROSTHESIS, LEFT Josie Del Toro PA-C calcium carbonate 800 mg / famotidine 10 mg / magnesium hydroxide 165 mg chewable tablet (20 sources) Histamine-2 Receptor Antagonist Start: 09-01-2013 End: 10-10-2013 Famotidine-Ca Carb-Mag Hydrox (Pepcid Complete Tablet Chew) 1 EACH Tab.Chew Discontinued 1 NMA PO September 01, 2013 1:00am October 10, 2013 1:25pm calcium carbonate / vitamin D (3 sources) Start: 12-19-2010 take 2 tablets by mouth once daily CALCIUM CARBONATE-VITAMIN D 600-125 MG-UNIT TABS Two tablets by mouth daily CALCIUM CARBONATE-VITAMIN D [id number] Jacquelin Mclean calcium citrate / vitamin D (3 sources) Start: 12-19-2010 take 1 tablet by mouth once daily CALCIUM 600-200 MG-UNIT TABS One tablet by mouth daily CALCIUM-VITAMIN D [id number] Evangelina Armando RN ciclopirox 7.7 mg/ml topical lotion (3 sources) Start: 11-03-2016 LOPROX 0.77 % (Susp) KIT apply as directed CICLOPIROX OLAMINE-CLEANSER [id number] Evangelina Armando RN Cortisol Radiological Metallurgist Allergen Free ([employer]) (1 source) Start: 03-21-2021 End: 07-17-2021 Cortisol Radiological Metallurgist Allergen Free ([employer]) For adults, take 1 capsule before bedtime, or as recommended by your healthcare professional. Increase to 2 capsules during times of high stress. For every night use. 90 capsule 1 03/21/2021 07/17/2021 Discontinued 1 ml denosumab 60 mg/ml prefilled syringe (20 sources) RANK Ligand Inhibitor Start: 08-16-2019 End: 10-01-2023 Denosumab (Prolia) 60 mg/mL syringe Discontinued 60 mg SC every 6 months August 16, 2019 1:00am October 01, 2023 3:37pm End: 04-12-2024 denosumab (PROLIA) 60 mg/mL Inject 60 mg subcutaneously one time only. Gets injection every 6 months 04/12/2024 Discontinued Comment on above: Inject 60 mg subcuta neously one time only. 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 09/29/2024 Discontinued (Therapy completed) Esomeprazole Magnesium 40 mg capsule,delayed release(DR/EC) (1 source) Start: 12-18-2022 End: 09-09-2024 take 1 capsule by mouth once daily Esomeprazole Magnesium 40 mg capsule,delayed release(DR/EC) Discontinued 0 .ROUTE .COMPLEX 90 December 18, 2022 10:21am September 09, 2024 12:22pm take 1 capsule by mouth daily estradiol 2 mg oral tablet (11 sources) Estrogen Start: 02-22-2016 take 1 tablet by mouth once daily ESTRADIOL 2 MG TABS One tablet by mouth daily ESTRADIOL [id number] Evangelina Armando RN Start: 12-19-2010 End: 09-08-2013 VAGIFEM TABS 25mcg, Take as directed ESTRADIOL TABS [id number] Debra Leung RN Start: 12-19-2010 VAGIFEM TABS 2 5mcg, Take as directed ESTRADIOL TABS [id number] Jacquelin Mclean End: 09-29-2024 Estradiol (VAGIFEM VA) twice a week. 09/29/2024 Discontinued (Therapy completed) estrogens, conjugated (penitentiary) 0.625 mg/ml vaginal cream (11 sources) Estrogen Start: 02-22-2016 PREMARIN 0.625 MG/GM CREA as directed ESTROGENS, CONJUGATED [id number] Brian Cooley MD Start: 12-19-2010 End: 09-08-2013 PREMARIN 0.625 MG/GM CREA as directed ESTROGENS, CONJUGATED [id number] Brian Cooley MD estrogens conjug ated (PREMARIN) 0.625 MG/GM VA CREA by Vaginal route every 7 days. Active flecainide acetate 50 mg oral tablet (20 sources) Antiarrhythmic Start: 06-29-2013 End: 07-15-2013 FLECAINIDE ACETATE 50 MG TABS One and 1/2 tablets by mouth twice daily FLECAINIDE ACETATE [id number] Evangelina Armando RN Start: 09-13-2012 take 1 tablet by louise once daily FLECAINIDE ACETATE 100 MG TABS One half tablet by mouth once daily FLECAINIDE ACETATE [id number] Evangelina Armando RN Start: 12-19-2010 End: 09-01-2012 take 1 tablet by mouth twice daily FLECAINIDE ACETATE 100 MG TABS One tablet by mouth twice daily FLECAINIDE ACETATE [id number] Brian Cooley MD furosemide 20 mg oral tablet (20 sources) Loop Diuretic Start: 03-09-2012 End: 09-29-2024 take 1 tablet by mouth once daily Furosemide 20 MG tablet Discontinued 20 mg PO DAILY September 01, 2013 1:00am October 10, 2013 1:25pm 2 ml sodium hyaluronate 10 mg/ml prefilled syringe (5 sources) Start: 08-17-2023 End: 08-17-2023 sodium hyaluronate 20 mg injection (EUFLEXXA) Start: 08-10-2023 End: 08-10-2023 sodium hyaluronate 20 mg inj ection (EUFLEXXA) Start: 08-11-2022 End: 08-11-2022 sodium hyaluronate 20 mg inj ection (EUFLEXXA) Start: 08-04-2022 End: 08-04-2022 sodium hyaluronate 20 mg inj ection (EUFLEXXA) Start: 07-28-2022 End: 07-28-2022 sodium hyaluronate 20 mg inj ection (EUFLEXXA) hydrocortisone 5 mg/ml topical cream (2 sources) Corticosteroid Start: 07-20-2013 End: 09-29-2024 hydrocortisone 0.5 % EX CREA 1 Application by Topical route 2 times daily. Apply to irritated old lead patch areas. F/U with your PCP if no improvement. 1 Tube 0 07/20/2013 09/29/2024 Discontinued (Therapy completed) ibandronic acid 150 mg oral tablet (6 sources) Bisphosphonate Start: 12-19-2010 End: 03-09-2012 take 1 tablet by mouth every month BONIVA 150 MG TABS 1 tablet by mouth monthly IBANDRONATE SODIUM [id number] Brian Cooley MD ibuprofen 200 mg oral tablet (6 sources) Nonsteroidal Anti-inflammatory Drug Start: 12-19-2010 End: 11-17-2012 ADVIL 200 MG TABS As needed, takes very occasionally IBUPROFEN [id number] Jacquelin Mclean Inflammatone ([employer]) decrease inflammation/pain (1 source) Start: 03-21-2021 End: 11-13-2021 Inflammatone ([employer]) decrease inflammation/pain take two capsules daily, between meals 0 03/21/2021 11/13/2021 Discontinued (Discontinued by Patient) ISOSORBIDE MONONITRATE TABS (6 sources) Nitrate Vasodilator Start: 12-19-2010 End: 03-09-2012 ISOSORBIDE MONONITRATE TABS 25mg - 1/2 tablet twice daily ISOSORBIDE MONONITRATE TABS [id number] Brian Cooley MD Start: 12-19-2010 ISOSORBIDE MON ONITRATE TABS 25mg - 1/2 tablet twice daily ISOSORBIDE MONONITRATE TABS [id number] Jacquelin Mclean lansoprazole 30 mg extended release oral tablet (6 sources) Proton Pump Inhibitor Start: 03-22-2013 End: 07-20-2014 take 1 tablet by mouth once daily LANSOPRAZOLE 30 MG TBDP One tablet by mouth daily LANSOPRAZOLE Brian Cooley MD magnesium oxide 400 mg oral tablet (20 sources) Start: 07-25-2014 End: 01-21-2024 take 1 tablet by mouth once daily Magnesium Oxide 400 mg (241.3 mg magnesium) tablet Discontinued 400 mg PO DAILY May 16, 2022 10:42am January 19, 2023 11:29am Start: 07-25-2014 take 1 tablet by louise twice daily MAGNESIUM OXIDE 400 MG TABS One tablet by mouth twice daily MAGNESIUM OXIDE [id number] Brian Cooley MD Start: 12-19-2010 End: 11-17-2012 take 1 tablet by mouth once daily MAGNESIUM OXIDE 250 MG TABS One tablet by mouth daily MAGNESIUM OXIDE [id number] Jacquelin Mclean MASTECTOMY BRA (3 sources) Start: 05-11-2017 MASTECTOMY BRA Left breast cancer MASTECTOMY BRA Josie Del Toro PA-C memantine hydrochloride 10 mg oral tablet (20 sources) [id number] ate Receptor Antagonist Start: 12-18-2020 End: 03-19-2021 take 1 tablet by mouth twice daily Memantine 10 mg tablet Discontinued 10 mg PO TWICE A DAY December 18, 2020 12:00am March 19, 2021 7:24pm Begin after completing 3 week titration using memantine 5mg tablets Start: 12-18-2020 End: 01-08-2021 take 1 tablet by mouth once daily, then take 1 tablet by mouth twice daily, then take 1 tablet by mouth once daily in the morning, then take 2 tablets by mouth once daily in the evening Memantine 5 mg tablet Discontinued 5 mg PO .COMPLEX 42 December 18, 2020 12:00am January 07, 2021 12:00am January 08, 2021 12:03am 1 tablet PO daily for 1 week then 1 tablet BID for one week then 1 tablet qAM and two tablets qPM for 1 week metoclopramide 10 mg oral tablet (20 sources) Dopamine-2 Receptor Antagonist Start: 04-25-2023 End: 01-23-2024 take 1 tablet by mouth every six hours as needed for nausea and vomiting Metoclopramide Hcl (Reglan) 10 mg tablet Discontinued 10 mg PO EVERY 6 HOURS as needed for nausea and vomiting 29 11April 25, 2023 12:00am January 23, 2024 4:12pm Start: 08-17-2022 End: 04-23-2023 take 1 tablet by mouth four times daily as needed for nausea and vomiting Metoclopramide Hcl (Reglan) 10 mg tablet Discontinued 10 mg PO 4 TIMES DAILY NEEDED as needed for nausea and vomiting August 17, 2022 6:32am April 23, 2023 9:44am 24 hr metoprolol succinate 25 mg extended release oral tablet (20 sources) beta-Adrenergic Elsa Start: 02-17-2022 End: 02-18-2022 take 2 tablets by mouth twice daily Metoprolol Succinate 25 mg tablet extended release 24 hr Discontinued 12.5 mg PO TWICE A DAY February 17, 2022 4:58pm February 18, 2022 3:55pm Start: 11-12-2019 End: 01-21-2024 metoprolol succinate ER (TOP ROL XL) 25 mg 24 hr tablet Take half tablet in the morning and 1 tablet in the evening. 01/19/2020 Active Start: 11-12-2019 End: 02-17-2022 take 2 tablets by mouth every twenty-four hours at breakfast Metoprolol Succinate 25 mg tablet extended release 24 hr Discontinued 12.5 mg PO WITH BREAKFAST 45 November 05, 2021 3:44pm February 17, 2022 4:58pm Start: 11-12-2019 End: 02-18-2022 take 12.5 mg by mouth twice daily Metoprolol Succinate Discontinued 12.5 MG PO TWICE A DAY 90 February 17, 2022 3:58pm February 18, 2022 2:55pm Start: 08-16-2019 End: 02-17-2022 take 1 tablet by mouth twice daily Metoprolol Succinate 25 mg tablet extended release 24 hr Discontinued 25 mg PO TWICE A DAY 180 August 16, 2019 4:24pm November 12, 2019 2:31pm Start: 07-13-2019 End: 08-16-2019 take 2 tablets by mouth once daily Metoprolol Succinate 25 MG tablet extended release 24 hr Discontinued 12.5 mg PO DAILY July 13, 2019 12:00am August 16, 2019 4:22pm Start: 07-13-2019 End: 08-16-2019 take 1 tablet by mouth once daily Metoprolol Succinate 25 mg tablet extended release 24 hr Discontinued 25 mg PO DAILY 90 July 30, 2019 12:06pm August 16, 2019 4:23pm Start: 07-13-2019 End: 08-16-2019 take 12.5 mg by mouth once daily Metoprolol Succinate Discontinued 12.5 MG PO DAILY July 13, 2019 12:00am August 16, 2019 4:22pm Start: 07-30-2018 End: 06-10-2019 take 1 tablet by mouth every twenty-four hours at bedtime Metoprolol Succinate 25 mg tablet extended release 24 hr Discontinued 25 mg PO .COMPLEX 135 July 30, 2018 6:03pm June 10, 2019 10:10am 25 mg PO: 0.5 tablet (12.5 mg) in the am and 1 tablet (25 mg) at bedtime Start: 07-30-2018 End: 07-30-2018 Metoprolol Succinate 25 mg t ablet extended release 24 hr Discontinued 25 mg PO .COMPLEX July 30, 2018 6:02pm July 30, 2018 6:04pm 25 mg PO 0.5 tablet (12.5 mg) in the am and 1 tablet (25 mg) at bedtime; One half tablet by mouth every morning and one tablet by mouth in the evening Start: 06-25-2018 End: 06-10-2019 take 1 tablet by mouth twice daily Metoprolol Succinate 25 mg tablet extended release 24 hr Discontinued 25 mg PO TWICE A DAY June 25, 2018 2:14pm July 30, 2018 6:03pm Start: 06-18-2018 End: 06-25-2018 take 2 tablets by mouth twice daily Metoprolol Succinate 25 mg tablet extended release 24 hr Discontinued 12.5 mg PO TWICE A DAY June 18, 2018 12:50pm June 25, 2018 2:15pm Start: 02-06-2016 End: 06-18-2018 Metoprolol Succinate 25 MG t ablet Discontinued 12.5 mg PO TWICE A DAY October 07, 2017 3:00pm June 18, 2018 12:50pm Start: 05-23-2014 End: 01-21-2024 take 0.5 tablet by mouth every twenty-four hours at bedtime Metoprolol Succinate 25 mg tablet extended release 24 hr Discontinued 25 mg PO .COMPLEX 135 February 18, 2022 12:00am February 18, 2022 4:01pm 25 mg PO 1 tablet by mouth in the morning and 1/2 tablet at bedtime; Start: 09-01-2013 End: 10-12-2013 take 1 tablet by mouth at bedtime Metoprolol Tartrate 25 MG tablet Discontinued 25 mg PO AT BEDTIME September 01, 2013 1:00am October 12, 2013 1:56pm Start: 11-17-2012 End: 06-25-2018 take 12.5 mg by mouth twice daily Metoprolol Succinate Discontinued 12.5 MG PO TWICE A DAY June 18, 2018 11:50am June 25, 2018 1:15pm Start: 11-17-2012 take 1 tablet by louise once daily TOPROL XL 25 MG [id number] One tablet by mouth daily METOPROLOL SUCCINATE [id number] Tanesha Britt PA-C Start: 12-29-2011 End: 10-11-2012 take 0.5 tablet by mouth twice daily METOPROLOL TARTRATE 25 MG TABS 1/2 tablet by mouth twice daily METOPROLOL TARTRATE [id number] Evangelina Armando RN Comment on above: Take half tablet in the morning and 1 tablet in the evening. 24 hr mirabegron 50 mg extended release oral tablet (14 sources) beta3-Adrenergic Agonist Start: 04-25-2023 End: 07-15-2023 take 1 tablet by mouth every twenty-four hours, then take 1 tablet by mouth every twenty-four hours Mirabegron (Mirabegron 50 Mg Tablet,Extended Release 24 Hr) 50 mg tablet extended release 24 hr Discontinued 50 mg PO Q24H April 25, 2023 12:00am July 15, 2023 9:11am MULTIPLE VITAMINS-MINERALS (6 sources) Start: 12-19-2010 End: 01-16-2015 take 1 tablet by mouth once daily OCUVITE PRESERVISION TABS One tablet by mouth daily MULTIPLE VITAMINS-MINERALS [id number] Brian Cooley MD Start: 12-19-2010 take 1 tablet by louise th once daily OCUVITE PRESERVISION TABS One tablet by mouth daily MULTIPLE VITAMINS-MINERALS [id number] Jacquelin Mclean nitrofurantoin, macrocrystals 50 mg oral capsule (6 sources) Start: 12-19-2010 End: 09-08-2013 NITROFURANTOIN MACROCRYSTAL 50 MG CAPS 1 capsule daily as needed to prevent UTI NITROFURANTOIN MACROCRYSTAL [id number] Debra Leung RN [employer] (Pure Encapsulation) -- fish oil (20 sources) Start: 03-21-2021 End: 08-25-2022 take 2 capsules by mouth once daily at mealtime [employer] (Pure Encapsulation) -- fish oil Take 2 capsules by mouth daily with food. 0 03/21/2021 08/25/2022 Discontinued Start: 03-21-2021 take 2 capsules by m outh once daily at mealtime [employer] (Pure Encapsulation) -- fish oil Take 2 capsules by mouth daily with food. 0 03/21/2021 Active Comment on above: Take 2 capsules by m outh daily with food. promethazine hydrochloride 12.5 mg oral tablet (20 sources) Phenothiazine Start: 11-09-19 End: 11-14-19 take 1 tablet by mouth every six hours as needed promethazine (PHENERGAN) 12.5 mg tablet Take 1 tablet by mouth every 6 hours as needed for Nausea/Vomiting (may make drowsy). 10 tablet 11/09/2020 11/13/2021 Discontinued (Discontinued by Patient) Start: 11-14-2019 End: 05-08-2021 take 1 tablet by mouth twice daily as needed for nausea Promethazine 12.5 MG tablet Discontinued 12.5 mg PO TWICE A DAY as needed for Nausea November 14, 2019 12:09pm May 08, 2021 1:44pm Start: 09-01-2013 End: 10-10-2013 take 1 tablet by mouth every six hours as needed for nausea Promethazine 25 MG tablet Discontinued 25 mg PO EVERY 6 HOURS NEEDED as needed for Nausea September 01, 2013 1:00am October 10, 2013 1:23pm Start: 03-09-2012 End: 09-08-2013 take 1 tablet by mouth every four hours as needed for nausea PROMETHAZINE HCL 25 MG TABS 1 tablet by mouth every 4 hours as needed for nausea PROMETHAZINE HCL [id number] Debra Leung RN raNITIdine 150 mg oral tablet (20 sources) Histamine-2 Receptor Antagonist Start: 11-30-2017 End: 02-03-2019 take 1 tablet by mouth after mealtime as needed for gastroesophageal reflux disease Ranitidine Hcl (Acid Control (Ranitidine)) 150 mg tablet Discontinued 150 mg PO .After Meal as needed for Heartburn November 30, 2017 12:00am February 03, 2019 3:49pm Start: 07-20-2014 take 1 tablet by louise th after mealtime as needed RANITIDINE HCL 150 MG TABS One tablet by mouth after a meal as needed RANITIDINE HCL [id number] Brian Cooley MD sertraline 25 mg oral tablet (20 sources) Serotonin Reuptake Inhibitor Start: 07-13-2019 End: 02-23-2020 Sertraline 25 MG tablet Discontinued 12.5 mg PO EVERY OTHER DAY July 13, 2019 12:00am February 23, 2020 11:09am Start: 07-13-2019 End: 02-23-2020 take 12.5 mg by mouth every other day Sertraline Discontinued 12.5 MG PO EVERY OTHER DAY July 13, 2019 12:00am February 23, 2020 11:09am Start: 09-28-2013 End: 04-04-2016 take 1 tablet by mouth once daily Sertraline (Zoloft) 25 MG tablet Discontinued 25 mg PO DAILY February 06, 2016 12:00am April 04, 2016 2:38pm Start: 09-28-2013 take 0.5 tablet by m outh once daily ZOLOFT 50 MG TABS 1/2 tablet by mouth daily SERTRALINE HCL [id number] Brian Cooley MD Start: 09-28-2013 take 1 tablet by louise th once daily ZOLOFT 50 MG TABS One tablet by mouth daily SERTRALINE HCL [id number] Brian Cooley MD End: 09-29-2024 take 0.5 tablet by mouth once daily sertraline (ZOLOFT) 25 MG PO TABS take 0.5 Tabs by mouth daily. 09/29/2024 Discontinued (Therapy completed) traMADol hydrochloride 50 mg oral tablet (4 sources) Opioid Agonist Start: 11-04-2024 End: 11-11-2024 take 0.5 tablet by mouth every eight hours as needed for pain traMADol (ULTRAM) 50 mg tablet Indications: Fall, subsequent encounter , Acute midline back pain, unspecified back location Take 0.5 tablets by mouth every 8 hours as needed for pain for up to 7 days. 11 tablet 11/04/2024 11/08/2024 Discontinued 1 ml triamcinolone acetonide 40 mg/ml injection (1 source) Corticosteroid Start: 04-21-2022 End: 04-21-2022 triamcinolone acetonide 120 mg injection (KeNALog 40) Start: 04-21-2022 End: 04-21-2022 triamcinolone acetonide 120 mg injection (KeNALog 40) Urea (20 sources) Start: 02-23-2020 End: 05-08-2021 Urea Discontinued 2 PACK PO TWICE A DAY February 23, 2020 11:09am May 08, 2021 1:44pm Start: 02-23-2020 End: 05-08-2021 Urea Discontinued 2 PACK PO TWICE A DAY February 22, 2020 11:00pm May 08, 2021 12:44pm Start: 02-23-2020 End: 05-08-2021 Urea Discontinued 2 PACK PO TWICE A DAY February 23, 2020 12:00am May 08, 2021 1:44pm Urea 15 gram powder in packet (1 source) Start: 02-23-2020 End: 05-08-2021 Urea 15 gram powder in packet Discontinued 2 PACK PO TWICE A DAY February 23, 2020 12:00am May 08, 2021 1:44pm vibegron (GEMTESA) 75 mg tablet (11 sources) End: 05-08-2023 take 1 tablet by mouth once daily vibegron (GEMTESA) 75 mg tablet Take 75 mg by mouth once daily. 05/08/2023 Discontinued End: 05-08-2023 take 1 tablet by mouth once daily vibegron (GEMTESA) 75 mg tablet Take 75 mg by mouth once daily. 0 05/08/2023 Discontinued take 1 tablet by louise once daily vibegron (GEMTESA) 75 mg tablet Take 75 mg by mouth once daily. 0 Active Comment on above: Take 75 mg by mouth once daily. Vibegron (Gemtesa) 75 mg tablet (16 sources) Start: 04-07-2023 End: 07-15-2023 take 1 tablet by mouth once daily Vibegron (Gemtesa) 75 mg tablet Discontinued 75 mg PO DAILY April 07, 2023 12:00am July 15, 2023 9:11am Start: 04-07-2023 End: 07-15-2023 take 1 tablet by mouth once daily Vibegron (Gemtesa) 75 mg tablet Discontinued 75 MG PO DAILY April 07, 2023 12:00am July 15, 2023 9:11am Start: 04-07-2023 End: 07-15-2023 take 1 tablet by mouth once daily Vibegron (Gemtesa) 75 mg tablet Discontinued 75 MG PO DAILY April 06, 2023 11:00pm July 15, 2023 8:11am Start: 04-07-2023 take 1 tablet by louise once daily Vibegron (Gemtesa) 75 mg tablet Active 75 MG PO DAILY April 07, 2023 12:00am B COMPLEX VITAMINS (6 sources) Start: 12-19-2010 take 1 tablet by mouth once daily VITAMIN B COMPLEX TABS One tablet by mouth daily B COMPLEX VITAMINS [id number] Jacquelin Mclean Start: 12-19-2010 End: 11-17-2012 take 1 tablet by mouth once daily VITAMIN B COMPLEX TABS One tablet by mouth daily B COMPLEX VITAMINS [id number] Brian Cooley MD vitamin d 1000 unt oral tablet (6 sources) Start: 03-22-2013 take 1 tablet by mouth once daily VITAMIN D 1000 UNIT TABS One tablet by mouth daily CHOLECALCIFEROL [id number] Brian Cooley MD Start: 12-19-2010 take 1800 [IU] by mo [facility] once daily, then take 1 tablet by mouth VITAMIN D 1000 UNIT TABS 1800 units One tablet by mouth daily CHOLECALCIFEROL [id number] Jacquelin Mclean Vitamin D3 5000 Unit (Pure Encapsulations) (1 source) Start: 03-21-2021 End: 11-13-2021 take 1 capsule by mouth once daily at mealtime Vitamin D3 5000 Unit (Pure Encapsulations) Take 1 capsule by mouth daily with food. 03/21/2021 11/13/2021 Discontinued (Discontinued by Patient) warfarin sodium 5 mg oral tablet (12 sources) Vitamin K Antagonist Start: 10-14-2013 End: 06-21-2014 COUMADIN 5 MG TABS 7.5 mg every day WARFARIN SODIUM [id number] Debra Leung RN Start: 07-21-2013 COUMADIN 5 MG TABS take as directed, current dose is 7.5 mg x 6 days, 5 mg x 1 day WARFARIN SODIUM [id number] Brian Cooley MD zinc gluconate 50 mg oral tablet (6 sources) Start: 12-19-2010 End: 11-17-2012 take 1 tablet by mouth once daily ZINC GLUCONATE 50 MG TABS One tablet by mouth daily ZINC GLUCONATE [id number] Jacquelin Mclean zolpidem tartrate 5 mg oral tablet (6 sources) gamma-Aminobuty devika Acid-ergic Agonist Start: 11-17-2012 End: 09-08-2013 take 1 tablet by mouth at bedtime AMBIEN 5 MG TABS One tablet by mouth at bedtime. 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; Translations: [Malignant neoplasm of upper-inner quadrant of female breast] Onset: 7 04-24-2017 Chronic Cancer of breast (15 sources) History of malignant neoplasm of breast; Translations: [Personal history of malignant neoplasm of breast] 04-09-2023 Episodic Comment on above: left mastectomy 2016 Cardiac dysrhythmias (20 sources) Atrial flutter; Translations: [Paroxysmal atrial fibrillation] Onset: 1 12-19-2010 Chronic Conduction disorders (2 sources) Sinus node dysfunction; Translations: [Other specified heart block] Onset: 3 Chronic Deficiency and other anemia (20 sources) Anemia; Translations: [Anemia, unspecified] 02-23-2020 Episodic Deficiency and other anemia (20 sources) Anemia, unspecified; Translations: [Anemia, unspecified] Episodic Deficiency and other anemia (1 source) Iron deficiency anemia; Translations: [Iron deficiency anemia, unspecified] 04-12-2024 Episodic Delirium, dementia, and amnestic and other cognitive disorders (20 sources) Mild cognitive disorder ; 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] Onset: 1 11-27-2020 Chronic Disorders of lipid metabolism (2 sources) Mixed hyperlipidemia; Translations: [Mixed hyperlipidemia] Onset: 5 02-10-2025 Chronic Esophageal disorders (20 sources) Gastroesophageal reflux disease; Translations: [Gastro-esophageal reflux disease without esophagitis] Onset: 2 03-13-2012 Chronic Essential hypertension (2 sources) Essential hypertension; Translations: [Essential (primary) hypertension] Onset: 5 02-10-2025 Chronic Genitourinary symptoms and ill-defined conditions (2 sources) Urinary incontinence; Translations: [Unspecified urinary incontinence] Chronic Genitourinary symptoms and ill-defined conditions (2 sources) Increased frequency of urination; Translations: [Frequency of micturition] Episodic Heart valve disorders (20 sources) Mitral valve prolapse; Translations: [Nonrheumatic mitral (valve) prolapse] Onset: 1 12-19-2010 Chronic Immunizations and screening for infectious disease (20 sources) Contact with or exposure to other viral diseases; Translations: [Exposure to COVID-19 virus] Episodic Malaise and fatigue (20 sources) Chronic fatigue syndrome; Translations: [Chronic fatigue, unspecified] Onset: 1 09-09-2021 Chronic Menopausal disorders (20 sources) Atrophic vaginitis; Translations: [Postmenopausal atrophic vaginitis] 09-20-2020 Chronic Comment on above: OTC lubricants, stre tching Mood disorders (20 sources) Recurrent major depression in partial remission; Translations: [Major depressive disorder, recurrent, in partial remission] Onset: 6 Chronic Mood disorders (1 source) Mood disorders; Translations: [Anxiety and depression] Onset: 7 Mycoses (3 sources) Onychomycosis; Translations: [Tinea unguium] Episodic Nausea and vomiting (20 sources) Vomiting; Translations: [Vomiting, unspecified] Episodic Noninfectious gastroenteritis (20 sources) Chronic diarrhea; Translations: [Noninfective gastroenteritis and colitis, unspecified] 06-25-2021 Episodic Nonmalignant breast conditions (20 sources) Mastodynia; Translations: [Pain of right breast] 10-01-2023 Episodic Nonspecific chest pain (20 sources) Chest pain, unspecified; Translations: [Chest pain] Onset: 1 Resolved: 6 12-19-2010 Episodic Nutritional deficiencies (20 sources) Deficiency of macronutrients; Translations: [Unspecified protein-calorie malnutrition] Onset: 3 Chronic Open wounds of extremities (2 sources) Laceration of right index finger; Translations: [Laceration without foreign body of right index finger without damage to nail, initial encounter] Episodic Osteoarthritis (20 sources) Osteoarthritis; Translations: [Osteoarthrosis, unspecified whether generalized or localized, lower leg] 03-13-2012 Chronic Other acquired deformities (1 source) Acquired valgus deformity of right knee; Translations: [Valgus deformity, not elsewhere classified, right knee] Episodic Other aftercare (3 sources) Patient encounter status; Translations: [Other salvage determiner (current) drug therapy] Episodic Other aftercare (1 source) Removal of sutures done; Translations: [Encounter for removal of sutures] Episodic Other aftercare (1 source) Long-term current use of anticoagulant; Translations: [skilled nursing (current) use of anticoagulants] 11-07-2024 Episodic Other and ill-defined cerebrovascular disease (20 sources) Cerebrovascular disease; Translations: [Cerebrovascular disease, unspecified] 11-25-2021 Chronic Other and ill-defined cerebrovascular disease (5 sources) Cerebrovascular disease, unspecified; Translations: [Unspecified cerebrovascular disease] Chronic Other bone disease and musculoskeletal deformities (20 sources) Postmenopausal osteopenia; Translations: [Other specified disorders of bone density and structure, unspecified site] 09-20-2020 Episodic Other bone disease and musculoskeletal deformities (1 source) Costal chondritis; Translations: [Chondrocostal junction syndrome [Tietze]] 10-30-2023 Episodic Other circulatory disease (1 source) Abnormal peripheral pulse; Translations: [Other specified symptoms and signs involving the circulatory and respiratory systems] Episodic Other circulatory disease (9 sources) Orthostatic hypotension; Translations: [Orthostatic hypotension] 09-22-2023 Episodic Other circulatory disease (7 sources) Orthostatic hypotension; Translations: [Orthostatic hypotension] 09-22-2023 Episodic Other circulatory disease (9 sources) History of atrial flutter; Translations: [Personal history of other diseases of the circulatory system] 11-21-2023 Episodic Other circulatory disease (2 sources) Personal history of other diseases of the circulatory system; Translations: [Personal history of other diseases of circulatory system] 11-21-2023 Episodic Other connective tissue disease (1 source) Swelling of right lower limb; Translations: [Other specified soft tissue disorders] Episodic Other connective tissue disease (9 sources) Sarcopenia; Translations: [Sarcopenia] 09-22-2023 Episodic Other connective tissue disease (7 sources) Sarcopenia; Translations: [Muscular wasting and disuse atrophy, not elsewhere classified] 09-22-2023 Episodic Other connective tissue disease (2 sources) Recurrent falls ; Translations: [Repeated falls] 11-10-2024 Episodic Other connective tissue disease (1 source) Repeated falls; Translations: [Repeated falls] Onset: 5 Episodic Other endocrine disorders (20 sources) Syndrome of inappropriate vasopressin secretion; 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] Onset: 8 03-09-2018 Chronic Other endocrine disorders (20 sources) Syndrome of inappropriate secretion of antidiuretic hormone; Translations: [Other disorders of neurohypophysis] Onset: 8 Chronic Other endocrine disorders (3 sources) Hypoadrenalism; Translations: [Unspecified adrenocortical insufficiency] Onset: 5 02-10-2025 Chronic Other endocrine disorders (1 source) Unspecified adrenocortical insufficiency; Translations: [Adrenal insufficiency (HCC)] Onset: 5 Chronic Other female genital disorders (20 sources) Vaginal dryness; Translations: [Other specified noninflammatory disorders of vagina] 09-20-2020 Episodic Other female genital disorders (19 sources) Other specified noninflammatory disorders of vagina; Translations: [Other specified symptoms associated with female genital organs] Episodic Other fractures (2 sources) Compression fracture of thoracic spine; Translations: [Wedge compression fracture of unspecified thoracic vertebra, initial encounter for closed fracture] 11-07-2024 Episodic Other fractures (1 source) Fracture of twelfth thoracic vertebra; Translations: [Wedge compression fracture of T11-T12 vertebra, subsequent encounter for fracture with routine healing] 11-07-2024 Episodic Other fractures (1 source) Collapsed vertebra, not elsewhere classified, thoracic region, initial encounter for fracture; Translations: [Collapsed vertebra, not elsewhere classified, thoracic region, initial encounter for fracture] Onset: 5 Episodic Other gastrointestinal disorders (20 sources) Irritable bowel syndrome; Translations: [Irritable bowel syndrome without diarrhea] 03-13-2012 Chronic Other gastrointestinal disorders (20 sources) Diarrhea; Translations: [Diarrhea, unspecified] 04-12-2021 Episodic Other gastrointestinal disorders (20 sources) Constipation; Translations: [Constipation, unspecified] 03-13-2012 Episodic Other hereditary and degenerative nervous system conditions (20 sources) Impaired cognition; Translations: [Mild cognitive impairment, so stated] 11-25-2021 Chronic Other hereditary and degenerative nervous system conditions (19 sources) Mild cognitive impairment, so stated; Translations: [Mild cognitive impairment, so stated] Chronic Other injuries and conditions due to external causes (1 source) Injury of head; Translations: [Unspecified injury of head, initial encounter] 11-07-2024 Episodic Other nervous system disorders (16 sources) Polyneuropathy; Translations: [Polyneuropathy, unspecified] 04-07-2023 Chronic Other nervous system disorders (12 sources) Polyneuropathy, unspecified; Translations: [Unspecified hereditary and idiopathic peripheral neuropathy] 04-07-2023 Chronic Other nervous system disorders (2 sources) Aphasia; Translations: [Aphasia] 11-02-2023 Chronic Other nervous system disorders (2 sources) Walking disability; Translations: [Difficulty in walking, not elsewhere classified] 11-10-2024 Chronic Other nervous system disorders (16 sources) Abnormal gait; Translations: [Unspecified abnormalities of gait and mobility] 04-07-2023 Episodic Other nervous system disorders (16 sources) Numbness; Translations: [Anesthesia of skin] 04-07-2023 Episodic Other nervous system disorders (7 sources) Unspecified abnormalities of gait and mobility; Translations: [Abnormality of gait] 09-22-2023 Episodic Other nutritional; endocrine; and metabolic disorders (2 sources) H/O: endocrine disorder; Translations: [Personal history of other endocrine, nutritional and metabolic disease] 01-23-2024 Episodic Other skin disorders (20 sources) Lichen sclerosus et atrophicus; 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] 09-20-2020 Chronic Comment on above: clobetesol prn Other skin disorders (2 sources) Ingrowing toenail; Translations: [Ingrowing nail] 04-22-2024 Episodic Other upper respiratory disease (11 sources) Bleeding from nose; Translations: [Epistaxis] 07-31-2023 Episodic Residual codes; unclassified (2 sources) Sleep apnea; Translations: [Sleep apnea, unspecified] 05-18-2024 Chronic Residual codes; unclassified (1 source) Sleep apnea, unspecified; Translations: [Sleep apnea, unspecified type] Onset: 10-30-202 4 Chronic Residual codes; unclassified (2 sources) Hypersomnia; Translations: [Hypersomnia, unspecified] 09-29-2024 Chronic Residual codes; unclassified (4 sources) Obstructive sleep apnea syndrome; Translations: [Obstructive sleep apnea (adult) (pediatric)] Onset: 3 Chronic Residual codes; unclassified (1 source) Hypersomnia, unspecified; Translations: [Hypersomnia, unspecified] Onset: 5 Chronic Residual codes; unclassified (20 sources) Bilateral lower limb edema; Translations: [Localized edema] 05-29-2022 Episodic Residual codes; unclassified (2 sources) Pain; Translations: [Pain, unspecified] Episodic Residual codes; unclassified (3 sources) Localized edema; Translations: [Edema] Episodic Syncope (20 sources) Syncope; Translations: [Syncope and collapse] Onset: 9 11-12-2019 Episodic Transient cerebral ischemia (2 sources) Transient cerebral ischemia; Translations: [Transient cerebral ischemic attack, unspecified] 11-02-2023 Chronic Unclassified (9 sources) Long-term drug therapy; Translations: [Long-term (current) use of other medications] Onset: 3 Resolved: 5 05-16-2015 Unclassified (3 sources) Radiofrequency ablation operation for arrhythmia ; Translations: [Other specified postprocedural states] Onset: 6 01-17-2016 Unclassified (1 source) APPOINTMENT CANCELLED 04-20-2023 Unclassified (2 sources) Establish Care; Translations: [Establish Care] Onset: 5 Urinary tract infections (6 sources) Urinary tract infectious disease; Translations: [Urinary tract infection, site not specified] 12-08-2023 Episodic Viral infection (2 sources) COVID-19; Translations: [Other specified viral infection] Episodic Past or Other Problems Problem Classification Problem Date Documented Date Episodic/Chronic Cardiac dysrhythmias (20 sources) Palpitations; Translations: [Palpitations] Onset: 9 Resolved: 6 02-06-2016 Episodic Conditions associated with dizziness or vertigo (20 sources) Lightheadedness; Translations: [Dizziness and giddiness] Onset: 3 Episodic Deficiency and other anemia (1 source) Iron deficiency anemia, unspecified; Translations: [Iron deficiency anemia, unspecified iron deficiency anemia type] Onset: 4 Episodic E Codes: Fall (4 sources) Fall; Translations: [Unspecified fall, subsequent encounter] Onset: 5 11-02-2024 Episodic E Codes: Fall (2 sources) Fall 11-02-2024 Fluid and electrolyte disorders (20 sources) Hyponatremia with decreased serum osmolality; Translations: [Hypo-osmolality and hyponatremia] Onset: 1 03-13-2012 Episodic Headache; including migraine (20 sources) Ophthalmic migraine; 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 with aura, not intractable, without status migrainosus] Resolved: 7 11-02-2023 Chronic Malaise and fatigue (20 sources) Fatigue; Translations: [Other fatigue] Onset: 5 02-12-2015 Episodic Nutritional deficiencies (3 sources) Cobalamin deficiency; Translations: [Deficiency of other specified B group vitamins] Onset: 4 04-12-2024 Episodic Osteoporosis (20 sources) Osteoporosis; Translations: [Age-related osteoporosis without current pathological fracture] Onset: 9 Resolved: 2 04-12-2024 Chronic Other aftercare (3 sources) Surgical follow-up; Translations: [Encounter for other specified surgical aftercare] Onset: 7 04-24-2017 Episodic Other aftercare (20 sources) Post-discharge follow-up; Translations: [Encounter for follow-up examination after completed treatment for conditions other than malignant neoplasm] Onset: 0 Resolved: 3 11-18-2019 Episodic Other aftercare (1 source) Other intermediate (current) drug therapy; Translations: [Medication management] Onset: 4 Episodic Other bone disease and musculoskeletal deformities (20 sources) Other specified disorders of bone density and structure, unspecified site; Translations: [Disorder of bone and cartilage, unspecified] Onset: 4 Episodic Other bone disease and musculoskeletal deformities (20 sources) Osteopenia; Translations: [Other specified disorders of bone density and structure, unspecified site] Onset: 6 09-09-2021 Episodic Other bone disease and musculoskeletal deformities (20 sources) Disorder of skeletal system; Translations: [Disorder of bone, unspecified] Resolved: 9 03-13-2012 Episodic Other fractures (20 sources) Closed fracture lumbar vertebra; Translations: [Unspecified fracture of unspecified lumbar vertebra, initial encounter for closed fracture] Onset: 3 09-09-2021 Episodic Other injuries and conditions due to external causes (1 source) Encounter for examination and observation following other accident; Translations: [Encounter for examination and observation following other accident] Onset: 5 Episodic Other lower respiratory disease (3 sources) Dyspnea; Translations: [Shortness of breath] Onset: 2 09-13-2012 Episodic Other non-traumatic joint disorders (20 sources) Pain in lower limb; Translations: [Pain in unspecified knee] Onset: 4 04-27-2014 Episodic Other non-traumatic joint disorders (20 sources) Chronic pain of right upper limb; Translations: [Pain in right shoulder] Onset: 7 11-11-2016 Episodic Other non-traumatic joint disorders (20 sources) Pain in right knee; Translations: [Pain in joint, lower leg] Onset: 9 10-06-2018 Episodic Other skin disorders (3 sources) Mass of axilla; Translations: [Localized swelling, mass and lump, unspecified] Onset: 7 05-28-2017 Episodic Residual codes; unclassified (20 sources) Insomnia; Translations: [Insomnia, unspecified] Onset: 1 03-13-2012 Episodic Residual codes; unclassified (20 sources) Postmenopausal state; Translations: [Asymptomatic menopausal state] Resolved: 3 10-28-2012 Episodic Residual codes; unclassified (1 source) Insomnia, unspecified; Translations: [Insomnia, unspecified type] Onset: 2 Episodic Residual codes; unclassified (1 source) Estrogen receptor positive status [ER+]; Translations: [Estrogen receptor positive status [ER+]] Onset: 4 Episodic Spondylosis; intervertebral disc disorders; other back problems (20 sources) Lumbago with sciatica; Translations: [Lumbago with sciatica, right side] Onset: 5 07-24-2015 Episodic Unclassified (20 sources) Electrocardiogram abnormal; Translations: [Thyroid function tests abnormal] Onset: 1 Resolved: 6 12-19-2010 Episodic Unclassified (6 sources) FH: Hypertension; Translations: [Estrogen receptor positive status [ER+]] Onset: 7 07-20-2014 Episodic Results Test Name Value Interpretation Reference Range Facility 25(OH)D3 [facility] 2024 25-hydroxyvitamin D3 [Mass/Vol] 49.4 ng/mL Normal 31.0-80.0 [facility] Comment on above: Order Comment: Speci men Type: BLOOD SPECIMENOrdering Facility: [facility] Address: [address] [place] [address] Result Comment: Clas sification of 25 OH Vitamin D status: Deficiency/Insufficiency: < or = 30 ng/ml. Sufficiency/Optimal Levels: 31-80 ng/mL Toxicity: > 100 ng/mL. Test performed by chemiluminescent immunoassay. Performed By: #### 1 989-3 ####[facility] [id number] [place] [address] [place] CBC W Auto Differential pane l (Bld)on 02-14-2025 Basophils (Bld) [#/Vol] 0.05 10*3/uL Normal <0.11 [facility] Comment on above: Order Comment: Speci men Type: BLOOD SPECIMENOrdering Facility: [facility] Address: [address] [place] [address] Performed By: #### 5 7021-8 ####[facility] [id number] [place] [address] [place] Basophils/100 WBC (Bld) 1.3 % Normal [facility] Comment on above: Order Comment: Speci men Type: BLOOD SPECIMENOrdering Facility: [facility] Address: [address] [place] [address] Performed By: #### 5 7021-8 ####[facility] LABCL[facility] [id number] [place] [address] [place] Differential cell count method Nom (Bld) Auto Normal [facility] Comment on above: Order Comment: Speci men Type: BLOOD SPECIMENOrdering Facility: [facility] Address: [address] [place] [address] Performed By: #### 5 7021-8 ####[facility] LABCL[facility] [id number] [place] [address] [place] Eosinophils (Bld) [#/Vol] 0.15 10*3/uL Normal <0.46 [facility] Comment on above: Order Comment: Speci men Type: BLOOD SPECIMENOrdering Facility: [facility] Address: [address] [place] [address] Performed By: #### 5 7021-8 ####[facility]CL[facility] [id number] [place] [address] [place] Eosinophils/100 WBC (Bld) 3.8 % Normal [facility] Comment on above: Order Comment: Speci men Type: BLOOD SPECIMENOrdering Facility: [facility] Address: [address] [place] [address] Performed By: #### 5 7021-8 ####[facility] LABCL[facility] [id number] [place] [address] [place] Erythrocyte distribution width (RBC) [Ratio] 13.7 % Normal 11.5-15.0 [facility] Comment on above: Order Comment: Speci men Type: BLOOD SPECIMENOrdering Facility: [facility] Address: [address] [place] [address] Performed By: #### 5 7021-8 ####[facility]CL[facility] [id number] [place] [address] [place] Hematocrit (Bld) [Volume fraction] 35.2 % Low 36.0-46.0 [facility] Comment on above: Order Comment: Speci men Type: BLOOD SPECIMENOrdering Facility: [facility] Address: [address] [place] [address] Performed By: #### 5 7021-8 ####[facility]CL[facility] [id number] [place] [address] [place] Hemoglobin (Bld) [Mass/Vol] 11.7 g/dL Normal 11.5-15.5 [facility] Comment on above: Order Comment: Speci men Type: BLOOD SPECIMENOrdering Facility: [facility] Address: [address] [place] [address] Performed By: #### 5 7021-8 ####[facility]CL[facility] [id number] [place] [address] [place] Immature granulocytes (Bld) [#/Vol] 10*3/uL Normal <0.10 [facility] Comment on above: Order Comment: Speci men Type: BLOOD SPECIMENOrdering Facility: [facility] Address: [address] [place] [address] Performed By: #### 5 7021-8 ####[facility]CL[facility] [id number] [place] [address] [place] Immature granulocytes/100 WBC (Bld) 0.3 % Normal [facility] Comment on above: Order Comment: Speci men Type: BLOOD SPECIMENOrdering Facility: [facility] Address: [address] [place] [address] Performed By: #### 5 7021-8 ####[facility]CL[facility] [id number] [place] [address] [place] Lymphocytes (Bld) [#/Vol] 1.81 10*3/uL Normal 1.00-4.00 [facility] Comment on above: Order Comment: Speci men Type: BLOOD SPECIMENOrdering Facility: [facility] Address: [address] [place] [address] Performed By: #### 5 7021-8 ####[facility]CL[facility] [id number] [place] [address] [place] Lymphocytes/100 WBC (Bld) 45.4 % Normal [facility] Comment on above: Order Comment: Speci men Type: BLOOD SPECIMENOrdering Facility: [facility] Address: [address] [place] [address] Performed By: #### 5 7021-8 ####[facility] [id number] [place] [address] [place] MCH (RBC) [Entitic mass] 33.0 pg Normal 26.0-34.0 [facility] Comment on above: Order Comment: Speci men Type: BLOOD SPECIMENOrdering Facility: [facility] Address: [address] [place] [address] Performed By: #### 5 7021-8 ####[facility] [id number] [place] [address] [place] MCHC (RBC) [Mass/Vol] 33.2 g/dL Normal 30.5-36.0 [facility] Comment on above: Order Comment: Speci men Type: BLOOD SPECIMENOrdering Facility: [facility] Address: [address] [place] [address] Performed By: #### 5 7021-8 ####[facility] [id number] [place] [address] [place] MCV (RBC) [Entitic vol] 99.2 fL Normal 80.0-100.0 [facility] Comment on above: Order Comment: Speci men Type: BLOOD SPECIMENOrdering Facility: [facility] Address: [address] [place] [address] Performed By: #### 5 7021-8 ####[facility] [id number] [place] [address] [place] Monocytes (Bld) [#/Vol] 0.52 10*3/uL Normal <0.87 [facility] Comment on above: Order Comment: Speci men Type: BLOOD SPECIMENOrdering Facility: [facility] Address: [address] [id number] Performed By: #### 5 7021-8 ####[facility] LABCLIA [id number] [address] [address] [place] Monocytes/100 WBC (Bld) 13.0 % Normal [facility] Comment on above: Order Comment: Speci men Type: BLOOD SPECIMENOrdering Facility: [facility] Address: [address] [place] [address] Performed By: #### 5 7021-8 ####[facility] LABCLIA [id number] [address], [facility]95 [place] Neutrophils (Bld) [#/Vol] 1.45 10*3/uL Normal 1.45-7.50 [facility] Comment on above: Order Comment: Speci men Type: BLOOD SPECIMENOrdering Facility: [facility] Address: [address] [place] [address] Performed By: #### 5 7021-8 ####[facility] LABCLIA [id number] [place] [id number] [place] Neutrophils/100 WBC (Bld) 36.2 % Normal [facility] Comment on above: Order Comment: Speci men Type: BLOOD SPECIMENOrdering Facility: [facility] Address: [address] [place] [address] Performed By: #### 5 7021-8 ####[facility] LABCLIA [id number] [address] [address] [place] Nucleated RBC (Bld) [#/Vol] 10*3/uL Normal <0.01 [facility] Comment on above: Order Comment: Speci men Type: BLOOD SPECIMENOrdering Facility: [facility] Address: [address] [place], [place] [address] Performed By: #### 5 7021-8 ####[facility] LABCLIA [id number] [place] [address] [place] Nucleated RBC/100 WBC (Bld) [Ratio] 0.0 /100 WBC Normal [facility] Comment on above: Order Comment: Speci men Type: BLOOD SPECIMENOrdering Facility: [facility] Address: [address] [place] [address] Performed By: #### 5 7021-8 ####[facility] LABCLIA [id number] [place] [address] [place] Platelet mean volume (Bld) [Entitic vol] 10.1 fL Normal 9.0-12.7 [facility] Comment on above: Order Comment: Speci men Type: BLOOD SPECIMENOrdering Facility: [facility] Address: [address] [place] [address] Performed By: #### 5 7021-8 ####[facility] LABIA [id number] [place] [address] [place] Platelets (Bld) [#/Vol] 243 10*3/uL Normal 150-400 [facility] Comment on above: Order Comment: Speci men Type: BLOOD SPECIMENOrdering Facility: [facility] Address: [address] [place] [address] Performed By: #### 5 7021-8 ####[facility] LABIA [id number] [place] [address] [place] RBC (Bld) [#/Vol] 3.55 10*6/uL Low 3.90-5.20 [facility] Comment on above: Order Comment: Speci men Type: BLOOD SPECIMENOrdering Facility: [facility] Address: [address] [place] [address] Performed By: #### 5 7021-8 ####[facility]CLIA [id number] [place] [address] [place] WBC (Bld) [#/Vol] 3.99 10*3/uL Normal 3.70-11.00 [facility] Comment on above: Order Comment: Speci men Type: BLOOD SPECIMENOrdering Facility: [facility] Address: [address] [place] [address] Performed By: #### 5 7021-8 ####[facility] LABCLIA [id number] [address] [address] [place] Comprehensive metabolic 2000 panelon 02-14-2025 Albumin [Mass/Vol] 3.8 g/dL Low 3.9-4.9 [facility] Comment on above: Order Comment: Speci men Type: BLOOD SPECIMENOrdering Facility: [facility] Address: [address] [place] [address] Performed By: #### 2 4331-1, 33983-4 ####[facility] LABCLIA [id number] [place] [address] [place] ALP [Catalytic activity/Vol] 83 U/L Normal 34-123 [facility] Comment on above: Order Comment: Speci men Type: BLOOD SPECIMENOrdering Facility: [facility] Address: [address] [place] [address] Performed By: #### 2 4331-1, 55849-3 ####[facility] LABCLIA [id number] [place] [id number] [place] ALT [Catalytic activity/Vol] 19 U/L Normal 7-38 [facility] Comment on above: Order Comment: Speci men Type: BLOOD SPECIMENOrdering Facility: [facility] Address: [address] [place] [address] Performed By: #### 2 4331-1, 61206-3 ####[facility] LABCLIA [id number] [place] [id number] [place] Anion gap [Moles/Vol] 10 mmol/L Normal 8-15 [facility] Comment on above: Order Comment: Speci men Type: BLOOD SPECIMENOrdering Facility: [facility] Address: [address] [place], [place] [phone] Performed By: #### 2 4331-1, 72893-7 ####[facility] LABIA [id number] [address] [address] [place] AST [Catalytic activity/Vol] 25 U/L Normal 13-35 [facility] Comment on above: Order Comment: Speci men Type: BLOOD SPECIMENOrdering Facility: [facility] Address: [address] [place] [address] Performed By: #### 2 4331-1, ####[facility] LABIA [id number] [place] [address] [place] Bilirubin [Mass/Vol] 0.6 mg/dL Normal 0.2-1.3 [facility] Comment on above: Order Comment: Speci men Type: BLOOD SPECIMENOrdering Facility: [facility] Address: [address] [place] [address] Performed By: #### 2 4331-, 97116-8 ####[facility] LABIA [id number] [place] [address] [place] Calcium [Mass/Vol] 8.9 mg/dL Normal 8.5-10.2 [facility] Comment on above: Order Comment: Speci men Type: BLOOD SPECIMENOrdering Facility: [facility] Address: [address] [place], [place] [phone] Performed By: #### 2 4331-, ####[facility] LABIA [id number] [address] [address] [place] Chloride [Moles/Vol] 96 mmol/L Low 98-107 [facility] Comment on above: Order Comment: Speci men Type: BLOOD SPECIMENOrdering Facility: [facility] Address: [address] [place], [place] [phone] Performed By: #### 2 4331-1, 68265-0 ####[facility] LABCLIA [id number] [address] [address] [place] CO2 [Moles/Vol] 26 mmol/L Normal 22-30 [facility] Comment on above: Order Comment: Speci men Type: BLOOD SPECIMENOrdering Facility: [facility] Address: [address] [place] [address] Performed By: #### 2 4331-1, 38626-4 ####[facility] LABIA [id number] [address] [address] [place] Creatinine [Mass/Vol] 0.98 mg/dL High 0.58-0.96 [facility] Comment on above: Order Comment: Speci men Type: BLOOD SPECIMENOrdering Facility: [facility] Address: [address] [place] [address] Performed By: #### 2 4331-1, 16072-5 ####[facility] [id number] [place] [id number] [place] Creatinine and Glomerular filtration rate.predicted panel (S/P/Bld) 57 mL/min/1.73m??? Low >=60 [facility] Comment on above: Order Comment: Speci men Type: BLOOD SPECIMENOrdering Facility: [facility] Address: [address] [place] [address] Result Comment: Merna mated Glomerular Filtration Rate (eGFR) is calculated using the 2020 CKD-EPI creatinine equation. This equation utilizes serum creatinine, sex, and age as parameters. The creatinine assay has traceable calibration to isotope dilution-mass spectrometry. Refer to KDIGO guidelines for clinical interpretation. In patients with unstable renal function, e.g. those with acute kidney injury, the eGFR may not accurately reflect actual GFR. Performed By: #### 2 4331-1, 65157-6 ####[facility] LABIA [id number] [address] [address] [place] Glucose [Mass/Vol] 89 mg/dL Normal 74-99 [facility] Comment on above: Order Comment: Adelaida agudelo Type: BLOOD SPECIMENOrdering Facility: [facility] Address: [address] [place] [address] Result Comment: The [place] Diabetes Association (ADA) provides guidance for cutoff values for fasting glucose and random glucose. The ADA defines fasting as no caloric intake for at least 8 hours. Fasting plasma glucose results between 100 to 125 mg/dL indicate increased risk for diabetes (prediabetes). Fasting plasma glucose results greater than or equal to 126 mg/dL meet the criteria for diagnosis of diabetes. In the absence of unequivocal hyperglycemia, results should be confirmed by repeat testing. In a patient with classic symptoms of hyperglycemia or hyperglycemic crisis, random plasma glucose results greater than or equal to 200 mg/dL meet the criteria for diagnosis of diabetes. Reference: Standards of Medical Care in Diabetes 2016, [place] [employer] Association. Diabetes Care. 2016.39(Suppl 1). Performed By: #### 2 4331-1, 10125-0 ####[facility] LABCLIA [id number] [place] [address] [place] Potassium [Moles/Vol] 4.6 mmol/L Normal 3.7-5.1 [facility] Comment on above: Order Comment: Adelaida agudelo Type: BLOOD SPECIMENOrdering Facility: [facility] Address: [address] [place] [address] Performed By: #### 2 4331-, ####[facility] LABCLIA [id number] [place] [id number] [place] Protein [Mass/Vol] 6.3 g/dL Normal 6.3-8.0 [facility] Comment on above: Order Comment: Adelaida agudelo Type: BLOOD SPECIMENOrdering Facility: [facility] Address: [address] [place] [phone] Performed By: #### 2 4331-, ####[facility] LABCLIA [id number] [address] [address] [place] Sodium [Moles/Vol] 132 mmol/L Low 136-144 [facility] Comment on above: Order Comment: Speci men Type: BLOOD SPECIMENOrdering Facility: [facility] Address: [address] [place] [address] Performed By: #### 2 4331-1, 74854-0 ####[facility] LABCLIA [id number] [place] [address] [id number] [address] [place] Urea nitrogen [Mass/Vol] 20 mg/dL Normal 7-21 [facility] Comment on above: Order Comment: Speci men Type: BLOOD SPECIMENOrdering Facility: [facility] Address: [address] [place], [place] [address] Performed By: #### 2 4331-1, ####[facility] LABCLIA [id number] [facility] [id number] [address] [place] Lipid 1996 panelon 5 Cholesterol [Mass/Vol] 197 mg/dL Normal <200 [facility] Comment on above: Order Comment: Speci men Type: BLOOD SPECIMENOrdering Facility: [facility] Address: [address] [place] [address] Result Comment: <200 mg/dL, Desirable 200-239 mg/dL, Borderline high >239 mg/dL, High Performed By: #### 2 4331-1, ####[facility] LABCLIA [id number] [facility] [address] [place] [address] [place] Cholesterol in HDL [Mass/Vol] 88 mg/dL Normal >39 [facility] Comment on above: Order Comment: Speci men Type: BLOOD SPECIMENOrdering Facility: [facility] Address: [address] [place] [address] Result Comment: 40-5 9 mg/dL, Acceptable >59 mg/dL, High: Negative risk factor for coronary heart disease <40 mg/dL, Low: Positive risk factor for coronary heart disease Performed By: #### 2 4331-1, 39398-1 ####[facility]CLIA [id number] [address] [address] [address] [facility] Cholesterol in LDL [Mass/Vol] 94 mg/dL Normal <100 [facility] Comment on above: Order Comment: Speci men Type: BLOOD SPECIMENOrdering Facility: [facility] Address: [address] [place] [address] Result Comment: <100 mg/dL, Optimal 100-129 mg/dL, Near optimal/above optimal 130-159 mg/dL, Borderline high 160-189 mg/dL, High >189 mg/dL, Very high Secondary prevention optimal LDL Cholesterol levels are recommended to be <70 mg/dL LDL cholesterol is calculated using the Armando-NIH equation. Performed By: #### 2 4331-, 27872-3 ####[facility] LABIA [id number] [address] Cholesterol in LDL/Cholesterol in HDL [Mass ratio] 1.07 {ratio} Normal <2.54 [facility] Comment on above: Order Comment: Paulai men Type: BLOOD SPECIMENOrdering Facility: [facility] Address: [address] [place] [address] Result Comment: Refe reesece: 1. National Cholesterol Education Program ATP III Guideline At-A-Glance Quick Desk Reference: National Heart, Lung, and Blood [place]. National Institutes of Health. 2001: NIH Publication No. 01-3305. 2. An International Atherosclerosis Society position paper: global recommendations for the management of dyslipidemia: executive summary, Atherosclerosis. 2014: 232(2):410-413. Performed By: #### 2 4331-, 58271-7 ####[facility] LABCLIA [id number] [address] [place] Cholesterol in VLDL [Mass/Vol] 13 mg/dL Normal <30 [facility] Comment on above: Order Comment: Adelaida agudelo Type: BLOOD SPECIMENOrdering Facility: [facility] Address: [address] [place] [address] Performed By: #### 2 4331-1, 38352-6 ####[facility] LABCLIA [id number] [place] [address] [place] Cholesterol non HDL [Mass/Vol] 109 mg/dL Normal <130 [facility] Comment on above: Order Comment: Speci men Type: BLOOD SPECIMENOrdering Facility: [facility] Address: [address] [place] [address] Result Comment: <130 mg/dL, Optimal 130-159 mg/dL, Near optimal/above optimal 160-189 mg/dL, Borderline high 190-219 mg/dL, High >219 mg/dL, Very high Secondary prevention optimal non HDL Cholesterol levels are recommended to be <100 mg/dL Performed By: #### 2 4331-1, 43793-4 ####[facility] LABCLIA [id number] [address] [place] Cholesterol.total/Dania sterol in HDL [Mass ratio] 2.24 {ratio} Normal <5.10 [facility] Comment on above: Order Comment: Speci men Type: BLOOD SPECIMENOrdering Facility: [facility] Address: [address] [place] [address] Performed By: #### 2 4331-1, 33755-3 ####[facility] LABCLIA [id number] [address] [place] FASTING TIME 12 hrs Normal [facility] Comment on above: Order Comment: Speci men Type: BLOOD SPECIMENOrdering Facility: [facility] Address: [address] [place] [address] Performed By: #### 2 4331-1, 37048-7 ####[facility] LABCLIA [id number] [place] [id number] [place] Triglyceride [Mass/Vol] 83 mg/dL Normal <150 [facility] Comment on above: Order Comment: Speci men Type: BLOOD SPECIMENOrdering Facility: [facility] Address: [address] [place] [address] Result Comment: <150 mg/dL, Normal 150-199 mg/dL, Borderline high 200-499 mg/dL, High >499 mg/dL, Very high Performed By: #### 2 4331-1, 33895-3 ####[facility] LABCLIA [id number] [address]BB[address]HMO[address] [place] CNOVon 02-10-2025 CNOV Office Visit (INTMWS ) ROSANA MAKI ([id number]) 1940 F NFR Date Time Provider Department 02/10/25 8:40 AM ROCHELLE HACKETT INTMWS During your visit today, we recorded the following information about you: Pulse Respiration Blood pressure Weight 62/minute 16/minute 160/71 55.2 kg Rochelle Hackett MD 02/10/2025 9:36 AM Signed Reason for Visit Follow up HPI Rosana is a 85-year-old female, with a history of adrenal insufficiency, SIADH, atrial fibrillation, and seasonal affective disorder, presenting for follow-up. Rosana reports significant improvement in her overall condition since her last visit in October. She has not experienced any falls since then and attributes her stability to careful attention to her surroundings and occasional use of a cane. She has been taking midodrine for orthostatic hypotension since August, which has effectively reduced episodes of lightheadedness upon standing. However, she notes that her blood pressure has been elevated, which she attributes to the midodrine. She is also on metoprolol for blood pressure control and atrial fibrillation, and takes Tikosyn and Eliquis for atrial fibrillation management. She reports a decrease in severe back pain, which she attributes to physical therapy at [facility] and increased physical activity. She has been more active, engaging in chair yoga at the community center and walking on her property. She also notes an improvement in her energy levels and attributes this to both physical activity and the seasonal change, as she experiences worsening symptoms of seasonal affective disorder during the darker months. Rosana has a history of insomnia and has had two appointments with a sleep physician at [facility]. A recent sleep study revealed frequent arousals from sleep, and she has been following a prescribed sleep regimen, including maintaining a consistent sleep schedule and keeping a sleep diary. She reports some improvement in her sleep quality, noting that she is able to fall back asleep more quickly after waking during the night. She has a history of SIADH and sees Dr. Sahu twice a year for monitoring. She has not had any emergency room visits for nausea or vomiting since October and has been taking sodium tablets as needed. She also reports a history of motion sensitivity, which has worsened with age, and notes that she avoids activities that trigger nausea. Rosana has a history of irritable bowel syndrome and reports that her symptoms are well-controlled as long as she drinks enough water. She uses a fiber compound as needed and reports occasional hemorrhoid discomfort, which she manages with Preparation H. She denies any significant issues with reflux, which is controlled with medication taken in the mornings. She also takes calcium, magnesium, vitamin D, and iron supplements. She is scheduled for another infusion of Zometa in February for bone density management and has been consistent with her calcium intake. She has an upcoming appointment with a health information technician in February and plans to discuss her recent episodes of dyspnea with them. Social History Tobacco Use Smoking status: Never Smokeless tobacco: Never Vaping Use Vaping status: Never Used Substance Use Topics Alcohol use: Yes Alcohol/week: 1.0 standard drink of alcohol Types: 1 Glasses of Wine (5oz) per week Comment: 1 glass per week Drug use: No Past medical history, appointments, medications, allergies reviewed. Pertinent Lab/Diagnostic Studies are reviewed and discussed today Current Outpatient Medications: lidocaine (LIDODERM) 5 % famotidine (PEPCID) 20 mg tablet fludrocortisone (FLORINEF) 0.1 mg tablet midodrine (PROAMATINE) 2.5 mg tablet zoledronic acid (ZOMETA INTRAVENOUS) esomeprazole (NEXIUM) 40 mg capsule BENEFIBER, GUAR GUM, ORAL meclizine (ANTIVERT) 25 mg tab Magnesium Glycinate 120mg 3 at night Stress, blood sugar, thyroid/hormones/adrenals/s leep/energy/toxins/muscles/ constipation/asthma metoprolol succinate ER (TOPROL XL) 25 mg 24 hr tablet APIXABAN (ELIQUIS ORAL) dofetilide (TIKOSYN) 250 mcg capsule acetaminophen (TYLENOL) 325 mg tablet calcium carbonate 600 mg-cholecalciferol 200 units 600 mg-5 mcg (200 unit) tab ergocalciferol(VITAMIN D 400 UNIT CAP) tiZANidine (ZANAFLEX) 2 mg tablet Health Maintenance Bone Density Screening Advance Directive Discussion Covid-19 Vaccine( season)@ Review Of Systems Constitutional: (+) fatigue Head: (-) headache Ears/Nose/Mouth/Throat: (+) rhinorrhea, (+) nasal congestion Cardiovascular: (-) chest pain Respiratory: (+) exertional dyspnea Gastrointestinal: (+) pruritus ani, (-) nausea, (-) vomiting, (-) heartburn Genitourinary: (+) nocturia Musculoskeletal: (+) back pain, (-) falls Neurological: (+) insomnia, (-) lightheadedness Physical Exam BP 160/71 Pulse 6 (more content not included)... Normal [facility] Spine Thoracic (Routine)on 0 02-07-2025 Spine Thoracic (Routine) [facility] Imaging Services [address] [place] [address] Spine Thoracic (Routine) MR#: [id number] Acct: [id number] Name: ROSANA MAKI Rep #: [id number] : 1940 F 85 From: Dimitri Arceo MD PCP: Dr. Rochelle Hackett MD Status: REG CLI Study: Spine Thoracic (Routine) Date of Exam: Exam# [id number] Ordering Dr: Toribio Marcos MD PROCEDURE: SPINE THORACIC (ROUTINE) 02/07/2025 REASON FOR EXAM: THORACIC COMPRESSION FRACTURE TECHNIQUE: Noncontrast thoracic spine MRI. Multiplanar and multisequence images were obtained. FINDINGS: There is a T7 compression deformity and there is also an L1 compression deformity. There is no cord compression or abnormal cord signal. There is slight edema at T7 with mild posterior cortical bowing. Minimal subchondral edema at L1 with posterior cortical bowing as well. No traumatic disc protrusion. On axial images, no cord compression. No abnormal cord signal. No syrinx. No demyelination. Thoracic spinal cord and thoracic aorta normal in caliber. Small bilateral pleural effusions. MRI/Spine Thoracic (Routine) IMPRESSION: T7 and L1 compression deformities with mild posterior cortical bowing. Both demonstrate a slight degree of edema which may reflect subacute age or a slight degree of ongoing microfracture. Reading Location: [facility] CC: Dr. Rochelle Hackett MD; Dr. Toribio Marcos MD Farm Management Agent: Signed Normal [facility] PT D/C Summary (1)on 025 PT D/C Summary (1) [facility] Physical Therapy [facility] [address] [place] [address] / REHABILITATION SERVICES DISCHARGE SUMMARY MR#: [id number] Acct: [id number] Name: ROSANA MAKI Rep #: [id number] : 1940 84 From: Richelle Nagy MPT Referring Dr.: Dr. Rochelle Hackett MD Status: REG RCR Insurance: MEDICARE PART A B [facility] INS Discharge Summary D/C summary: It has been my pleasure to treat ROSANA MAKI referred by Dr. Rochelle Hackett MD, with the diagnosis of dizziness/freq falls for a total of 15 visit(s). Discharge Date: 12/28/24 Please see the following information for a summary of their discharge status. Subjective Subjective: Pt reports that they just got better at balance but feels she just started and she feels she needs to go on with those things. Today she is very wobbly. She saw her Dr yesterday and said that she will not get better but wants her to keep up with her physical therapy. She is doing her HEP. She will try to get over here 2-3 times a week to do her PT. She reports that he back is better and she is getting an MRI at the end of January Pain back pain: Pain Intensity (Out of 10): 4 Right knee: Pain Intensity (Out of 10): 0 Rib Cage: Pain Intensity (Out of 10): 5 Overall Improvement % Improvement: 40 Objective Objective/Function: R hip flex 12.5 and L 11 R knee ext 16 and L 15.4 R knee flex 10.3 and L 10.6). FGA 20 Stairs: pt is up steps recip with 2 hand rails and down recip with 1 hand rail Goals Goal 1:: I HEP Goal Progress: Goal Met Goal 2:: Be able to go up and down steps recip with 2 hand rails with CGA.. Goal Progress: Goal Met Goal 3:: Be able to walk 2 laps around entire dept with rollator with big strides and heel to toe gait pattern with CGA Goal Progress: Goal Met Goal 4:: Increase LE strength (at the time of the eval: R hip flex 12.5 and L 10.8 R knee ext 14.1 and L 15 R knee flex 10.3 and L 9.6). Goal Progress: Progressing Goal 5:: Be able to get out of a chair with one arm rest 10/10 times Goal Progress: Goal Met Plan Plan: DC PT to gym exercises and previously given HEP D/C Information Discharge Comments: DC PT to indep HEP and gym routine d/c sentence: If there are questions or concerns regarding this patient's physical therapy, please feel free to call me at [phone]. Thank you for the referral of this patient. Sincerely, Richelle Nagy, NEISHA Balance/Gait/Functional tests Balance/Special Test Scores Functional Gait Assessment Score: 20 % Disability: 33.3400 Lower Extremity Functional Score: 31 Improvement % Improvement: 40 12/28/24 1105 CC: Dr. Rochelle Hackett MD Signed Normal [facility] Neurology Visit Reporton Neurology Visit Report [facility] [address], [address] [place] [address] OFFICE VISIT Date of Service: 12/26/24 MR#: [id number] Acct: [id number] Name: ROSANA MAKI Rep #: [id number] : 1940 Provider: Dr. Erick seymour MD Age/Sex: 84/F Location: [facility] [place]. Status: Signed [facility] Chief Complaint: Details: Interim History: Rosana returns for follow-up visit. She has a history of SIADH, ductal carcinoma of the left breast (s/p breast surgery in 2017; she did not require chemotherapy or radiation), anemia, paroxysmal atrial fibrillation, mitral valve prolapse and osteopenia. She was hospitalized in November 2019 for dizziness and confusion. She had a negative work-up for acute CVA; her MRI showed moderate chronic small vessel ischemic disease. She has chronic hyponatremia, first identified around the year 1999 and was diagnosed with SIADH. Her sodium level is often in the high 120s to low 130's (she has had a serum sodium level as low as 121). She has frequently experienced gait imbalance, nausea, lightheadedness, generalized weakness and fatigue. Aquatic therapy was of benefit. Continuing aquatic therapy on her own worsened her dizziness. Physical therapy in 2023 was of benefit for her energy level and gait. She has also experienced some dizziness; this is decreased in frequency. She previously used meclizine 25 mg and this was of benefit for her dizziness however the medication was sedating. She has not used meclizine recently. She no longer takes promethazine due to concern that it may cause QTc prolongation. 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 She has reduced her fluid intake and has used electrolyte powder and soup containing high salt content. She takes a sodium 1 g tablet almost once daily. She has liberally salted her food. She has used urea powder and reported improvement of her imbalance with use of this. She has had orthostatic hypotension with associated lightheadedness. She was taking fludrocortisone 0.1mg 1/2 tablet every Thursday, Thursday and Thursday (previously she took fludrocortisone 0.1 mg 1/2 tablet every Thursday and Thursday and 1 tablet every Thursday; she had had elevations of her blood pressure when she took fludrocortisone 0.1 mg 3 times weekly) however earlier in 2024 fludrocortisone was discontinued by her health information technician and midodrine 2.5 mg twice daily has been initiated. She uses compression stockings infrequently. She reported having vague numbness in the feet that has been present since at least 2020 and feels that this is contributing to her gait imbalance. She denied having low back pain. 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 Laboratory studies reveal a B12 level near the low end of the normal range and an abnormal serum free light chains. She had a fall in October 2024 and has had mid back pain. She is seeing a paint preparer, Dr. Marcos, and is to have a thoracic MRI. She has an old L1 compression fracture. She has had some memory difficulty since 2019. She decided not to take memantine due to concern about side effects (such as dizziness). She has noted word finding difficulty and she at times loses her train of thought. She had felt that her mental processing had slowed. She feels that her memory has slightly worsened further within recent months, however she remains independent in her daily activities. In 2012, she sustained a concussion in a fall down a flight of stairs. B12 1500 mcg injections (for fatigue) and ondansetron (for nausea) were not of benefit. She has had fluctuating fatigue since she had an episode of mononucleosis in the . She has a history of chronic right knee pain for which she has had right knee injections in 2020, 2021 and 2022. She had a COVID-19 upper respiratory tract infection in August 2022. Mini-Mental status exam score was 28/30 on 12/18/2020 and 30/30 in June 2024. She had a urinary tract infection in 2023. In November 2023 she had two 45-second episodes of aphasia without other associated symptoms. She had a head CT at the [facility] and [place]; results are presently not available. She takes Eliquis. She has been prescribed Zometa for osteoporosis. Her last bone density test (2023) revealed osteopenia. An overnight sleep study performed in September 2024 decreased sleep efficiency due to increased awake after sleep onset. The study did not meet criteria used to define the presence of sleep apnea. On my review of the data 0 minutes were spent in stage N3 sleep and 33 minutes were spent in stage R sleep. The arousal index was 8/hour. The awakening index was 7.7/hour. Total recording time was 392.5 minutes. Total sleep time was 240.5 minutes with sleep efficiency of 61.3%. Sleep onset was 15.5 minutes. REM latency was 76.5 minutes. Periodic le (more content not included)... Normal [facility] Anion gap in Serum or Plasma Ordered By: Eagle Enciso on 12-20-2024 Anion gap [Moles/Vol] 11 mmol/L 5-15 [facility] BUN/creatinine ratioOrdered By: Eagle Enciso on 12-20-2024 Urea nitrogen/Creatinine [Mass ratio] 19.7 mg/mg 07-03 [facility] Basic Metabolic Profile (BMP )on 12-20-2024 BUN/CRE 19.7 RATIO Normal 07-03 [facility] Comment on above: Performed By: #### L 500.4050, L100.0100 #### [facility] [address] [place], [address] Calcium [Mass/Vol] 9.5 mg/dL Normal 7.6-11.0 [facility] Comment on above: Performed By: #### L 500.4050, L100.0100 #### [facility] [address] [place], [address] Chloride [Moles/Vol] 94 mmol/L Low 98-108 [facility] Comment on above: Performed By: #### L 500.4050, L100.0100 #### [facility] [address] [place], [address] CO2 [Moles/Vol] 23.4 mmol/L Normal 21.0-32.0 [facility] Comment on above: Performed By: #### L 500.4050, L100.0100 #### [facility] [address] [place], [address] Creatinine [Mass/Vol] 1.21 mg/dL High 0.70-1.20 [facility] Comment on above: Performed By: #### L 500.4050, L100.0100 #### [facility] [address] [place], [address] GAP 11 Normal 01-26 [facility] Comment on above: Performed By: #### L 500.4050, L100.0100 #### [facility] [address] [place], [address] GFR/1.73 sq M.predicted among non-blacks MDRD (S/P/Bld) [Vol rate/Area] 45 mL/min/{1.73_m2} Low >60 [facility] Comment on above: Result Comment: mL/m in/1.73m2 CKD-EPI Creatinine Equation (2020) Performed By: #### L 500.4050, L100.0100 #### [facility] [address] [place], [address] Glucose [Mass/Vol] 119 mg/dL High 70-99 [facility] Comment on above: Performed By: #### L 500.4050, L100.0100 #### [facility] [address] [place], [address] Potassium [Moles/Vol] 4.6 mmol/L Normal 3.3-5.1 [facility] Comment on above: Result Comment: Hemo lysis present, Results??could be affected. ?? Performed By: #### L 500.4050, L100.0100 #### [facility] [address] [place], [address] Sodium [Moles/Vol] 129 mmol/L Low 133-145 [facility] Comment on above: Performed By: #### L 500.4050, L100.0100 #### [facility] [address] [place], [address] Urea nitrogen [Mass/Vol] 24 mg/dL High 4-19 [facility] Comment on above: Performed By: #### L 500.4050, L100.0100 #### [facility] [address] [place], [address] Carbon dioxide, total [Moles /volume] in Central venous bloodOrdered By: Eagle Enciso on 12-20-2024 CO2 [Moles/Vol] 23.4 mmol/L 21.0-32.0 [facility] Chloride assayOrdered By: Jaleel Enciso on 12-20-2024 Chloride [Moles/Vol] 94 mmol/L Low 98-108 [facility] GFR/1.73 sq M.predicted pierce g non-blacks MDRD (S/P/Bld) [Vol rate/Area]Ordered By: Eagle Enciso on 12-20-2024 Estimated GFR (MDRD) Non-Af Amer 45 Low >60 [facility] Comment on above: mL/min/1.73m2 CKD-EP I Creatinine Equation (2020) Potassium (Unsp spec) [Mass/ Vol]Ordered By: Eagle Enciso on 12-20-2024 Potassium [Moles/Vol] 4.6 mmol/L 3.3-5.1 [facility] Comment on above: Hemolysis present, R esults could be affected. Serum creatinine measurement (mass/volume)Ordered By: Eagle Enciso on 12-20-2024 Creatinine [Mass/Vol] 1.21 mg/dL High 0.70-1.20 [facility] Serum glucose measurement (m ass/volume)Ordered By: Eagle Enciso on 12-20-2024 Glucose [Mass/Vol] 119 mg/dL High 70-99 [facility] Serum or plasma calcium glo urement (mass/volume)Ordered By: Eagle Enciso on 12-20-2024 Calcium [Mass/Vol] 9.5 mg/dL 7.6-11.0 [facility] Serum or plasma urea nitroge n measurement (mass/volume)Ordered By: Eagle Enciso on 12-20-2024 Urea nitrogen [Mass/Vol] 24 mg/dL High 4-19 [facility] Sodium levelOrdered By: Huy Enciso on 12-20-2024 Sodium [Moles/Vol] 129 mmol/L Low 133-145 [facility] Inital Evaluation (1) - PTon 11-15-2024 Inital Evaluation (1) - PT [facility] Physical Therapy [facility] [address] [place] [address]. [address] [place] [address] / REHABILITATION SERVICES INITIAL EVALUATION MR#: [id number] Acct: [id number] Name: ROSANA MAKI Rep #: [id number] : 1940 84 From: Richelle DRIVER Referring Dr.: Dr. Rochelle Hackett MD Status: REG RCR Insurance: MEDICARE PART A B [facility] INS Patient's Visit Information Visit Information Visit Information: ROSANA MAKI is a 84 year old F referred to Physical Therapy by Dr. Rochelle Hackett MD with a diagnosis of dizziness/freq falls. Date of Evaluation: 11/15/24 Physical Therapist: NEISHA Byrd Visit Plan Frequency: 2x /Week Duration: 2 Months Plan: 2X/ week for 8 weeks for neutral spine core stability, postural exercises, LE strength, gait training, stairs, curb steps, and eventually once stronger work on balance exercises with HEP. Subjective Subjective: Pt reports that she fell on 2-15 in her bathroom. She managed to hit the tub and the floor. She feel because she was disoriented and she was vomiting. She got dizzy in a movie theater prior to this and got nauseated. She gets nauseated easily in cars, boats, etc since she was little. She went to the ER and they rehydrated her and did a scan of her head. They did not x-ray her back. By the next morning she was in a lot of pain in her back. She just saw Dr Marcos at the hospital for pain. The X-ray report showed that she had 2 compression fx of T7 but they are not fresh fx. The x-ray showed some degeneration. She has had a lot of pain and it is hard for her to sit or stand for long periods of time. Some of this is fatigue. She wants pain relief and some strength. will do an MRI after PT to get more details. Her balance is worse and worse (polynueropathy). She is terrified of falling. She dug out her moms old rollator. Her back pain is in center of back and radiates out along the ribs. She has no pain in the legs. She has steps at home to do laundry but her is doing the laundry. Pt gets dizzy when she has motion (cars, boats, planes). She reports that she does not get dizzy with turning in bed or turning her head. She has to be careful with what shoes she wears or walking on uneven surfaces. Pain back pain: Pain Intensity (Out of 10): 4 Objective Objective: Gait: walks with rollator (therapist had to move the arms up..was her moms. Her Dr said she needs to use it) with smaller step length Sit to stand: able to get up on first attempt with 2 arm rails. Not able to get up without UE support LE MMT: R hip flex 12.5 and L 10.8 R knee ext 14.1 and L 15 R knee flex 10.3 and L 9.6 FGA: 7 Balance/Special Test Scores Functional Gait Assessment Score: 7 % Disability: 76.6700 Lower Extremity Functional Score: 12 Goals Goal 1:: I HEP Goal Time Frame: 8-12 Weeks Goal 2:: Be able to go up and down steps recip with 2 hand rails with CGA.. Goal Time Frame: 8-12 Weeks Goal 3:: Be able to walk 2 laps around entire dept with rollator with big strides and heel to toe gait pattern with CGA Goal Time Frame: 4-6 Weeks Goal 4:: Increase LE strength (at the time of the eval: R hip flex 12.5 and L 10.8 R knee ext 14.1 and L 15 R knee flex 10.3 and L 9.6). Goal Time Frame: 8-12 Weeks Goal 5:: Be able to get out of a chair with one arm rest 10/10 times Goal Time Frame: 6-8 Weeks Rehabilitation Potential Rehabilitation Potential: Good Anticipated Interventions Patient/Client Instruction: Educate patient on: Condition and Plan of Care For the Purpose of:: To decrease pain, To improve nutrient delivery to tissue, To improve muscle performance and motor function, To improve ability to perform ADL's, To increase tolerance to activity/condition/position , To improve performance and independence with ADL's, To improve ability of physical actions for home/community/work/leisure , To improve gait and locomotor functions, To improve health of tissue, To improve endurance, To improve balance and To improve safety with gait Therapeutic Exercise to Include: Strength training, Endurance training, Body mechanics, Postural training, Gait and locomotor training, Neuromotor development, Active ROM and Dynamic Lumbar Stabilization For the Purpose of:: To decrease pain, To increase ROM, To improve nutrient delivery to tissue, To improve muscle performance and motor function, To improve ability to perform ADL's, To increase tolerance to activity/condition/position , To improve performance and independence with ADL's, To decrease level of supervision to perform tasks, To improve ability of physical actions for home/community/work/leisure , To improve gait and locomotor functions, To improve health of tissue, To decrease soft tissue restriction, To increase flexibility/ROM, To improve endurance, To improve balance and To improve s (more content not included)... Normal [facility] CNOVon 11-08-2024 CN Office Visit (INTMWS ) ROSANA MAKI ([id number]) 1940 F NFR Date Time Provider Department 11/08/24 9:20 AM ROCHELLE HACKETT INTMWS During your visit today, we recorded the following information about you: Pulse Blood pressure Weight Height 73/minute 110/78 52.2 kg 1.702 m Rochelle Hackett MD 11/10/2024 9:09 AM Signed Reason for Visit Patient presents with: Recheck Rosana Maki is a 84 year old female who presents here today for Above Complaints.. Health Maintenance There are no preventive care reminders to display for this patient. HPI This is a 84-year-old woman with a past medical history of adrenal insufficiency, a flutter, irritable bowel, severe osteoporosis with closed fracture of the lumbar vertebra, anxiety depression, dizziness and giddiness, SIADH, history of breast cancer, esophageal reflux, chronic fatigue syndrome, atrophic vaginitis, anemia and mild cognitive disorder. She was admitted 3-4 times in the past year for different reasons one of them being abnormality of gait and mobility, orthostatic hypotension, polyneuropathy, uti, epistaxis. Breast cancer and osteoporosis:She is now on zometa, was taking prolia, she has stopped the arimidex, will be having a BMD, and mammogram in May . Afib: on eliquis and tikosyn. Bleeding episodes are most bothersome. The last epistaxis needed cautery by Dr Shin. 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 Related to arimidex Anxiety depression: she sees the therapist every other week as the ssri worsen her SIADH. So she is doing well on the therapy. SIADH: followed by Dr. Enciso. On and off she goes into hyponatremia which presents in different ways and she has to be hospitalized most of this times. November 08, 2024 Had a fall in the rest room, 10 days ago. It was in the restroom, she had been throwing up a lot, lost her balance and fell against the bath tub. helped her get off the bathroom floor, went to ER, got saline. She did not complain of back pain so they just sent her home. In a wheel chair today, has severe pain. No new fracture but it flared the old pains and issues. She is getting set up with pain management. She notes she can walk but tends to tip over. Has a walker at home from mother, but may need one customized for her. She has lost around 5 pounds since this and legs are weaker. She has done a lot of Physical Therapy. She does not sleep much due to insomnia, needs CBT, does not have sleep apnea. She is getting medication for osteoporosis , Zometa, every 6 months. She is taking calcium and vitamin d. She is on midodrine for bp and seems that it really helps her. This was started by her health information technician Dr. Cooley No problem-specific Assessment AND Plan notes found for this encounter. Reviewed past medical history PAST SURGICAL HISTORY Procedure Laterality Date CATHETER, [...] Never Smokeless tobacco: Never Vaping Use Vaping status: Never Used Substance Use Topics Alcohol use: Yes Alcohol/week: 1.0 standard drink of alcohol Types: 1 Glasses of Wine (5oz) per week Comment: 1 glass per week Drug use: No Past medical history, appointments, medications, allergies reviewed. Pertinent Lab/Diagnostic Studies are reviewed and discussed today Current Outpatient Medications: traMADol (ULTRAM) 50 mg tablet midodrine (PROAMATINE) 2.5 mg tablet lidocaine (LIDODERM) 5 % tiZANidine (ZANAFLEX) 2 mg tablet zoledronic acid (ZOMETA INTRAVENOUS) esomeprazole (NEXIUM) 40 mg capsule famotidine (PEPCID) 20 mg tablet BENEFIBER, GUAR GUM, ORAL meclizine ( (more content not included)... Normal [facility] 11-08-2024 [facility] Telephone (INTMWS) ROSANA MAKI ([id number]) 1940 F NFR Date Time Provider Department 11/08/24 ROCHELLE HACKETT INTWS During your visit today, we recorded the following information about you: Teri Araiza LPN 11/08/2024 10:37 AM Signed Faxed physical therapy order and face sheet to [facility] per patient request Teri Ariaza LPN November 08, 2024 10:36 AM Allergies As of Date: 11/08/2024 Noted Allergy Reaction ADHESIVE TAPE (ROSINS) 11/11/2013 2 - Rash CANTALOUPE 08/12/2005 ERYTHROMYCIN 08/12/2005 8 - GI Upset GEMTESA (VIBEGRON) 07/09/2023 6 - Diarrhea GRASS POLLEN 08/13/2005 MOLD 08/13/2005 PENICILLINS 08/12/2005 2 - Rash 7 - Swelling POLLEN 08/13/2005 PREVACID (LANSOPRAZOLE) 05/02/2014 6 - Diarrhea Comments: All PPIs tried have given her diarrhea. SULFA (SULFONAMIDE ANTIBIOTICS) 08/12/2005 Comments: Pt uncertain if Sulfa allergy is accurate or not. Date Reviewed: 11/08/2024 Reviewed by: Teri Araiza LPN - Fully Assessed Reason for Visit: Orders [681] Cmt: [facility] PT Prescriptions as of 11/08/2024 - midodrine (PROAMATINE) 2.5 mg tablet Take 2.5 mg by mouth two times a day. - lidocaine (LIDODERM) 5 % Place patch to back for 12 hours. Remove old patch and wait 12 hours prior to placing new patch. - tiZANidine (ZANAFLEX) 2 mg tablet Take 1 tablet by mouth every 6 hours as needed. - zoledronic acid (ZOMETA INTRAVENOUS) Inject intravenously. Every 6 months - esomeprazole (NEXIUM) 40 mg capsule Take 1 capsule by mouth daily before breakfast. 1/2 hr before meal. - famotidine (PEPCID) 20 mg tablet take 1 tablet by mouth at bedtime if needed - BENEFIBER, GUAR GUM, ORAL Take 2 teaspoonsful by mouth two times a day as needed. - meclizine (ANTIVERT) 25 mg tab Take 1 tablet by mouth every 6 hours as needed (dizziness). - fludrocortisone (FLORINEF) 0.1 mg tablet Taking 3 times a week - Magnesium Glycinate 120mg 3 at night Stress, blood sugar, thyroid/hormones/adrenals/s leep/energy/toxins/muscles/ constipation/asthma Work up to 3 capsules with meals at night - can cause loose stools - metoprolol succinate ER (TOPROL XL) 25 mg 24 hr tablet Take half tablet in the morning and 1 tablet in the evening. - APIXABAN (ELIQUIS ORAL) Take 5 mg by mouth two times a day. - dofetilide (TIKOSYN) 250 mcg capsule Take [...] once daily. 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] Palpitations [R00.2] 02/23/2009 Osteoporosis [M81.0] 07/04/2009 03/13/2012 Insomnia [G47.00] 02/11/2011 Hyponatremia [E87.1] 02/11/2011 Chronic fatigue disorder [G93.32] 02/11/2011 Paroxysmal atrial fibrillation (HCC) [I48.0] Mitral valve prolapse [I34.1] Closed fracture of lumbar vertebra (HCC) [S32.0*10/18/2012 Dizziness and giddiness [R42] 03/08/2013 Pain in joint, lower leg [M25.569] 04/27/2014 Right-sided low back pain with right-sided scia*07/24/2015 Neck pain [M54.2] 08/16/2015 Major depressive disorder, recurrent, in partia*12/20/2015 Osteopenia [M85.80] 12/20/2015 Chronic right shoulder pain [M25.511, G89.29] 11/11/2016 Anxiety and depression [F41.9, F32.A] 02/05/2017 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 (syndrome of inappropriate ADH production*03/09/2018 Chronic pain of right knee [M25.561, G89.29] 10/06/2018 Hospital discharge follow-up [Z09] 11/18/2019 11/12/2022 Mild cognitive disorder [F09] 11/27/2020 Protein-calorie malnutrition, unspecified sever*01/14/2023 Encounter Status:Closed by TERI ARAIZA on 11/08/24 Normal [facility] CNPNon 11-07-2024 CNPN Telephone (INTMWS) ROSANA MAKI ([id number]) 1940 F NFR Date Time Provider Department 11/07/24 ROCHELLE HACKETT INTMWS During your visit today, we recorded the following information about you: Vida Urena 11/07/2024 2:35 PM Signed Patient calling in asking if her information and pain management referral can be faxed over to [facility]. Please review. Vida Urena November 07, 2024 2:34 PM Cristina Munson MA 11/07/2024 4:32 PM Signed Referral faxed to Dr Mancilla Allergies As of Date: 11/07/2024 Noted Allergy Reaction ADHESIVE TAPE (ROSINS) 11/11/2013 2 - Rash CANTALOUPE 08/12/2005 ERYTHROMYCIN 08/12/2005 8 - GI Upset GEMTESA (VIBEGRON) 07/09/2023 6 - Diarrhea GRASS POLLEN 08/13/2005 MOLD 08/13/2005 PENICILLINS 08/12/2005 2 - Rash 7 - Swelling POLLEN 08/13/2005 PREVACID (LANSOPRAZOLE) 05/02/2014 6 - Diarrhea Comments: All PPIs tried have given her diarrhea. SULFA (SULFONAMIDE ANTIBIOTICS) 08/12/2005 Comments: Pt uncertain if Sulfa allergy is accurate or not. Date Reviewed: 11/02/2024 Reviewed by: Cristina Munson MA - Fully Assessed Reason for Visit: Pain Management Referral [Other] Prescriptions as of 11/07/2024 - traMADol (ULTRAM) 50 mg tablet Take 0.5 tablets by mouth every 8 hours as needed for pain for up to 7 days. - midodrine (PROAMATINE) 2.5 mg tablet Take 2.5 mg by mouth two times a day. - lidocaine (LIDODERM) 5 % Place patch to back for 12 hours. Remove old patch and wait 12 hours prior to placing new patch. - nitrofurantoin monohydrate and macrocrystal (MACROBID) 100 mg capsule Take 1 capsule by mouth two times a day with meals for 5 days. - tiZANidine (ZANAFLEX) 2 mg tablet Take 1 tablet by mouth every 6 hours as needed. - zoledronic acid (ZOMETA INTRAVENOUS) Inject intravenously. Every 6 months - esomeprazole (NEXIUM) 40 mg capsule Take 1 capsule by mouth daily before breakfast. 1/2 hr before meal. - famotidine (PEPCID) 20 mg tablet take 1 tablet by mouth at bedtime if needed - BENEFIBER, GUAR GUM, ORAL Take 2 teaspoonsful by mouth two times a day as needed. - meclizine (ANTIVERT) 25 mg tab Take 1 tablet by mouth every 6 hours as needed (dizziness). - fludrocortisone (FLORINEF) 0.1 mg tablet Taking 3 times a week - Magnesium Glycinate 120mg 3 at night Stress, blood sugar, thyroid/hormones/adrenals/s leep/energy/toxins/muscles/ constipation/asthma Work up to 3 capsules with meals at night - can cause loose stools - metoprolol succinate ER (TOPROL XL) 25 mg 24 hr tablet Take half tablet in the morning and 1 tablet in the evening. - APIXABAN (ELIQUIS ORAL) Take by mouth [...] once daily. Problem List As Of Date 11/07/2024 Noted Resolved Irritable Bowel Syndrome [K58.9] OSTEOPENIA [M89.9, M94.9] 07/04/2009 Esophageal reflux [K21.9] Other forms of migraine [346.8] 05/04/2007 Unspecified constipation [K59.00] Asymptomatic Postmenopausal Status (Age-Related* 10/28/2012 Osteoarth NOS-L/Leg [[id number]] Palpitations [R00.2] 02/23/2009 Osteoporosis [M81.0] 07/04/2009 03/13/2012 Insomnia [G47.00] 02/11/2011 Hyponatremia [E87.1] 02/11/2011 Chronic fatigue disorder [G93.32] 02/11/2011 Paroxysmal atrial fibrillation (HCC) [I48.0] Mitral valve prolapse [I34.1] Closed fracture of lumbar vertebra (HCC) [S32.0*10/18/2012 Dizziness and giddiness [R42] 03/08/2013 Pain in joint, lower leg [M25.569] 04/27/2014 Right-sided low back pain with right-sided scia*07/24/2015 Neck pain [M54.2] 08/16/2015 Major depressive disorder, recurrent, in partia*12/20/2015 Osteopenia [M85.80] 12/20/2015 Chronic right shoulder pain [M25.511, G89.29] 11/11/2016 Anxiety and depression [F41.9, F32.A] 02/05/2017 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 (syndrome of inappropriate ADH production*03/09/2018 Chronic pain of right knee [M25.561, G89.29] 10/06/2018 Hospital discharge follow-up [Z09] 11/18/2019 11/12/2022 Mild cognitive disorder [F09] 11/27/2020 Protein-calorie malnutrition, unspecified sever*01/14/2023 Encounter Status:Closed by CRISTINA MUNSON on 11/07/24 [facility] 11-03-2024 TIGRE Telephone (INTMWS) ROSANA MAKI ([id number]) 1940 F NFR Date Time Provider Department 11/03/24 ROCHELLE HACKETT During your visit today, we recorded the following information about you: Ele Gill RN 11/03/2024 4:35 PM Signed Pt checking to see if Al received her xray results. Advised still in process. Pt reports she is having a lot of pain and wants to know what she can do for the pain. Reports she is taking tylenol. Reports lidocaine patches do nothing. Reports muscle relaxers make her feel crazy in the head but does nothing for her pain. Please advise patient. Al Nichole APRN.NIKO 11/04/2024 1:05 PM Signed Still waiting on results. We could try tramadol which is low dose dose controlled pain pill but may be too strong for her. Does she want to try this? Take care Al Nichole APRN.Cristina West MA 11/04/2024 1:29 PM Signed Patient willing try Tramadol, please send to [facility]. Al Nichole APRN.NIKO 11/04/2024 2:26 PM Signed Prescription sent as requested. She is very sensitive to medication so I prescribed 1/2 a tablet to try. If she tolerates this and it isn't enough, she can try taking a whole tablet. Thank you Al Nichole APRN.FLIGHT FOLLOWER Allergies As of Date: 11/03/2024 Noted Allergy Reaction ADHESIVE TAPE (ROSINS) 11/11/2013 2 - Rash CANTALOUPE 08/12/2005 ERYTHROMYCIN 08/12/2005 8 - GI Upset GEMTESA (VIBEGRON) 07/09/2023 6 - Diarrhea GRASS POLLEN 08/13/2005 MOLD 08/13/2005 PENICILLINS 08/12/2005 2 - Rash 7 - Swelling POLLEN 08/13/2005 PREVACID (LANSOPRAZOLE) 05/02/2014 6 - Diarrhea Comments: All PPIs tried have given her diarrhea. SULFA (SULFONAMIDE ANTIBIOTICS) 08/12/2005 Comments: Pt uncertain if Sulfa allergy is accurate or not. Date Reviewed: 11/02/2024 Reviewed by: Cristina Munson MA - Fully Assessed Reason for Visit: Patient Question [7738] Primary Visit Diagnosis:Fall, subsequent encounter [W19.XXXD] Other Visit Diagnosis:Acute midline back pain, unspecified back location [M54.9] Order(s):traMADol (ULTRAM) 50 mg tabletTake 0.5 tablets by mouth every 8 hours as needed for pain for up to 7 days.Disp: 11 tabletRfl: 0 Prescriptions as of 11/04/2024 - traMADol (ULTRAM) 50 mg tablet Take 0.5 tablets by mouth every 8 hours as needed for pain for up to 7 days. - midodrine (PROAMATINE) 2.5 mg tablet Take 2.5 mg by mouth two times a day. - lidocaine (LIDODERM) 5 % Place patch to back for 12 hours. Remove old patch and wait 12 hours prior to placing new patch. - nitrofurantoin monohydrate and macrocrystal (MACROBID) 100 mg capsule Take 1 capsule by mouth two times a day with meals for 5 days. - tiZANidine (ZANAFLEX) 2 mg tablet Take 1 tablet by mouth every 6 hours as needed. - zoledronic acid (ZOMETA INTRAVENOUS) Inject intravenously. Every 6 months - esomeprazole (NEXIUM) 40 mg capsule Take 1 capsule by mouth daily before breakfast. 1/2 hr before meal. - famotidine (PEPCID) 20 mg tablet take 1 tablet by mouth at bedtime if needed - BENEFIBER, GUAR GUM, ORAL Take 2 teaspoonsful by mouth two times a day as needed. - meclizine (ANTIVERT) 25 mg tab Take 1 tablet by mouth every 6 hours as needed (dizziness). - fludrocortisone (FLORINEF) 0.1 mg tablet Taking 3 times a week - Magnesium Glycinate 120mg 3 at night Stress, blood sugar, thyroid/hormones/adrenals/s leep/energy/toxins/muscles/ constipation/asthma Work up to 3 capsules with meals at night - can cause loose stools - metoprolol succinate ER (TOPROL XL) 25 mg 24 hr tablet Take half tablet in the morning and 1 tablet in the evening. - APIXABAN (ELIQUIS ORAL) Take by mouth [...] once daily. Problem List As Of Date 11/03/2024 Noted Resolved Irritable Bowel Syndrome [K58.9] OSTEOPENIA [M89.9, M94.9] 07/04/2009 Esophageal reflux [K21.9] Other forms of migraine [346.8] 05/04/2007 Unspecified constipation [K59.00] Asymptomatic Postmenopausal Status (Age-Related* 10/28/2012 Osteoarth NOS-L/Leg [[id number]] Palpitations [R00.2] 02/23/2009 Osteoporosis [M81.0] 07/04/2009 03/13/2012 Insomnia [G47.00] 02/11/2011 Hyponatremia [E87.1] 02/11/2011 Chronic fatigue disorder [G93.32] 02/11/2011 Paroxysmal atrial fibrillation (HCC) [I48.0] Mitral valve prolapse [I34.1] Closed fracture of lumbar vertebra (HCC) [S32.0*10/18/2012 Dizziness and giddiness [R42] 03/08/2013 Pain in joint, lower leg [M25.569] 04/27/2014 Right-sided low back pain with right-sided scia*07/24/2015 Neck pain [M54.2] 08/16/2015 Major depressive disorder, recurrent, in partia (more content not included)... Normal [facility] Bacteria Ur Culton 5 Bacteria identified Cx Nom (U) ORGANISM ID: 1 >=100,000 CFU/ml Escherichia coli ORGANISM ID: 1 (ESCHERICHIA COLI) --------- ANTIBIOTIC INTERPRETATION AURA STATUS REFERENCE RANGE --------- Ampicillin R >=32 F Susceptible <=8 , Intermediate >8 , Resistant >16 Cefazolin R >=64 F Susceptible 0-16 , Intermediate <0 or >16 , Resistant >16 For uncomplicated urinary tract infections, cefazolin results can be used to predict susceptibility or resistance to cephalexin. Ceftriaxone S <=1 F Susceptible <=1 , Intermediate >1 , Resistant >=4 Cefepime S <=1 F Susceptible <=2 , Susceptible-Dose Dependent >2 , Resistant >=16 Ertapenem S <=0.5 F Susceptible <=0.5 , Intermediate >.5 , Resistant >1 Meropenem S <=0.25 F Susceptible <=1 , Intermediate >1 , Resistant >2 Ampicillin/Sulbact S 8 F Susceptible <=8 , Intermediate >8 , Resistant >16 Piperacillin/Tazobac S <=4 F Susceptible <16 , Susceptible-Dose Dependent >=16 , Resistant >=32 Gentamicin S <=1 F Susceptible <=2 , Intermediate >2 , Resistant >=8 Tobramycin S <=1 F Susceptible <4 , Intermediate >=4 , Resistant >=8 Trimeth sulfameth S <=20 F Susceptible <=40 , Resistant >40 Ciprofloxacin S <=0.25 F Susceptible <0.5 , Intermediate >=.5 , Resistant >=1 Nitrofurantoin S <=16 F Susceptible <=32 , Intermediate >32 , Resistant >64 Abnormal [facility] Comment on above: Performed By: #### 6 30-4 ####[facility] [id number] [place] [address] [place] Basic metabolic 2000 panelon 11-02-2024 Anion gap [Moles/Vol] 7 mmol/L Low 8-15 [facility] Comment on above: Order Comment: Speci men Type: BLOOD SPECIMENOrdering Facility: [facility] Address: [address] [id number] Performed By: #### 2 4321-2 ####[facility] [id number] [place] [address] [place] Calcium [Mass/Vol] 8.5 mg/dL Normal 8.5-10.2 [facility] Comment on above: Order Comment: Speci men Type: BLOOD SPECIMENOrdering Facility: [facility] Address: [address] [place] [address] Performed By: #### 2 4321-2 ####[facility] [id number] [place] [address] [place] Chloride [Moles/Vol] 94 mmol/L Low 98-107 [facility] Comment on above: Order Comment: Speci men Type: BLOOD SPECIMENOrdering Facility: [facility] Address: [address] [place] [address] Performed By: #### 2 4321-2 ####[facility] [id number] [place] [address] [place] CO2 [Moles/Vol] 29 mmol/L Normal 22-30 [facility] Comment on above: Order Comment: Speci men Type: BLOOD SPECIMENOrdering Facility: [facility] Address: [address] [place], [place] [id number] Performed By: #### 2 4321-2 ####[facility] [id number] [place] [id number] [place] Creatinine [Mass/Vol] 0.80 mg/dL Normal 0.58-0.96 [facility] Comment on above: Order Comment: Speci men Type: BLOOD SPECIMENOrdering Facility: [facility] Address: [address] [place], [place] [address] Performed By: #### 2 4321-2 ####[facility] [id number] [id number] [address] [place] Creatinine and Glomerular filtration rate.predicted panel (S/P/Bld) 74 mL/min/1.73m??? Normal >=60 [facility] Comment on above: Order Comment: Adelaida agudelo Type: BLOOD SPECIMENOrdering Facility: [facility] Address: [address] [place] [address] Result Comment: Merna mated Glomerular Filtration Rate (eGFR) is calculated using the 2020 CKD-EPI creatinine equation. This equation utilizes serum creatinine, sex, and age as parameters. The creatinine assay has traceable calibration to isotope dilution-mass spectrometry. Refer to KDIGO guidelines for clinical interpretation. In patients with unstable renal function, e.g. those with acute kidney injury, the eGFR may not accurately reflect actual GFR. Performed By: #### 2 4321-2 ####[facility] [id number] [place] [address] [place] Glucose [Mass/Vol] 88 mg/dL Normal 74-99 [facility] Comment on above: Order Comment: Adelaida agudelo Type: BLOOD SPECIMENOrdering Facility: [facility] Address: [address] [place] [address] Result Comment: The [place] [employer] (ADA) provides guidance for cutoff values for fasting glucose and random glucose. The ADA defines fasting as no caloric intake for at least 8 hours. Fasting plasma glucose results between 100 to 125 mg/dL indicate increased risk for diabetes (prediabetes). Fasting plasma glucose results greater than or equal to 126 mg/dL meet the criteria for diagnosis of diabetes. In the absence of unequivocal hyperglycemia, results should be confirmed by repeat testing. In a patient with classic symptoms of hyperglycemia or hyperglycemic crisis, random plasma glucose results greater than or equal to 200 mg/dL meet the criteria for diagnosis of diabetes. Reference: Standards of Medical Care in Diabetes 2016, [place] [employer]. Diabetes Care. 2016.39(Suppl 1). Performed By: #### 2 4321-2 ####[facility] [id number] [place] [address] [place] Potassium [Moles/Vol] 3.8 mmol/L Normal 3.7-5.1 [facility] Comment on above: Order Comment: Speci men Type: BLOOD SPECIMENOrdering Facility: [facility] Address: [address] [place] [address] Performed By: #### 2 4321-2 ####[facility] [id number] [place] [id number] [place] Sodium [Moles/Vol] 130 mmol/L Low 136-144 [facility] Comment on above: Order Comment: Speci men Type: BLOOD SPECIMENOrdering Facility: [facility] Address: [address] [place] [address] Performed By: #### 2 4321-2 ####[facility] [id number] [place] [address] [place] Urea nitrogen [Mass/Vol] 17 mg/dL Normal 7-21 [facility] Comment on above: Order Comment: Speci men Type: BLOOD SPECIMENOrdering Facility: [facility] Address: [address] [place] [address] Performed By: #### 2 4321-2 ####[facility] [id number] [address] [place] CNOVon 11-02-2024 CNOV Office Visit (INTMWS ) ROSANA MAKI ([id number]) 1940 F NFR Date Time Provider Department 11/02/24 12:00 PM AL NICHOLE INTMWS During your visit today, we recorded the following information about you: Pulse Respiration Blood pressure Weight 60/minute 16/minute 128/70 54.4 kg Al Nichole APRN.FLIGHT FOLLOWER 11/02/2024 3:40 PM Signed CC: Patient presents with: Recheck: [facility] ER follow up, fall back pain HPI Rosana Maki is a 84 year old female who presents today for ER follow-up. Facility: [facility] ER Date of visit: 10/30/24 Reason for visit: Got dizzy after sitting after sitting front row at a movie, fell in bathroom had nausea Hospital course: CT brain negative for anything acute, sodium 127, potassium 3.3 - UA negative. 500ml of fluid given, Diagnosis: hypotension and dizziness due to dehydration Discharge: home Current symptoms: Has burning with urination now but thinks it is due to difficulty of straight cath by ER staff - states it took multiple attempts to get cath sample, dark urine, and is fatigued.Has a constant aching pain to her lower spine that is worsening with sitting up and getting up and then will spasm. Tylenol helps some but does not fully stops pain. Has history of urinary leakage and thinks she might be leaking more. Also with history of vertebral compression fracture and worried she might have another one. No spinal xrays completed in ER. Did have possible kidney stone and treated for UTI over a month ago. Denies abdominal pain, weakness, loss of bowel control, numbness, nausea, diarrhea, further falls, constipation, cough, wheezing, shortness of breath, chest pain, Dizziness has resolved. REVIEW OF SYSTEMS See HPI PAST MEDICAL HISTORY Diagnosis Date Abnormality of [...] Prevacid [Lansoprazole], and Sulfa (Sulfonamide Antibiotics) MEDICATIONS midodrine (PROAMATINE) 2.5 mg tablet Take 2.5 mg by mouth two times a day. zoledronic acid (ZOMETA INTRAVENOUS) Inject intravenously. Every 6 months esomeprazole (NEXIUM) 40 mg capsule Take 1 capsule by mouth daily before breakfast. 1/2 hr before meal. famotidine (PEPCID) 20 mg tablet take 1 tablet by mouth at bedtime if needed BENEFIBER, GUAR GUM, ORAL Take 2 teaspoonsful by mouth two times a day as needed. meclizine (ANTIVERT) 25 mg tab Take 1 tablet by mouth every 6 hours as needed (dizziness). fludrocortisone (FLORINEF) 0.1 mg tablet Taking 3 times a week (Patient taking differentl (more content not included)... Normal [facility] Urinalysis complete panel (U )on 11-02-2024 BACTERIA UL >9821 High Negative [facility] Comment on above: Order Comment: Speci men Type: URINE SPECIMENOrdering Facility: [facility] Address: [address] [place] [address] Performed By: #### 2 4356-8 ####[facility] [id number] [place] [address] [place] Bilirubin Ql (U) Negative Normal Negative [facility] Comment on above: Order Comment: Speci men Type: URINE SPECIMENOrdering Facility: [facility] Address: [address] [place] [address] Performed By: #### 2 4356-8 ####[facility] [id number] [place] [address] [place] Clarity (Unsp spec) Cloudy Abnormal Clear [facility] Comment on above: Order Comment: Speci men Type: URINE SPECIMENOrdering Facility: [facility] Address: [address] [place] [address] Performed By: #### 2 4356-8 ####[facility] [id number] [place] [address] [place] Color (U) Dark Yellow Abnormal Yellow [facility] Comment on above: Order Comment: Speci men Type: URINE SPECIMENOrdering Facility: [facility] Address: [address] [place] [address] Performed By: #### 2 4356-8 ####[facility] [id number] [place] [address] [place] Epithelial cells LM.HPF (Urine sed) [#/Area] Few Normal [facility] Comment on above: Order Comment: Speci men Type: URINE SPECIMENOrdering Facility: [facility] Address: [address] [place] [address] Result Comment: Few Performed By: #### 2 4356-8 ####[facility] [id number] [place] [address] [place] Glucose Test strip (U) [Mass/Vol] Negative Normal Negative [facility] Comment on above: Order Comment: Speci men Type: URINE SPECIMENOrdering Facility: [facility] Address: [address] [place] [address] Performed By: #### 2 4356-8 ####[facility] [id number] [place] [address] [place] Hemoglobin Ql (U) 2+ Abnormal Negative [facility] Comment on above: Order Comment: Speci men Type: URINE SPECIMENOrdering Facility: [facility] Address: [address] [place] [address] Performed By: #### 2 4356-8 ####[facility] [id number] [place] [address] [place] Hyaline casts (Urine sed) [#/Area] 0 /[LPF] Normal 0 /LPF [facility] Comment on above: Order Comment: Speci men Type: URINE SPECIMENOrdering Facility: [facility] Address: [address] [place] [address] Performed By: #### 2 4356-8 ####[facility] [id number] [place] [address] [place] Ketones Ql (U) Trace Abnormal Negative [facility] Comment on above: Order Comment: Speci men Type: URINE SPECIMENOrdering Facility: [facility] Address: [address] [place] [address] Performed By: #### 2 4356-8 ####[facility] [id number] [place] [address] [place] Leukocyte esterase Test strip Ql (U) 2+ Abnormal Negative [facility] Comment on above: Order Comment: Speci men Type: URINE SPECIMENOrdering Facility: [facility] Address: [address] [place] [address] Performed By: #### 2 4356-8 ####[facility] [id number] [place] [address] [place] Nitrite Ql (U) Positive Abnormal Negative [facility] Comment on above: Order Comment: Speci men Type: URINE SPECIMENOrdering Facility: [facility] Address: [address] [place] [address] Performed By: #### 2 4356-8 ####[facility] [id number] [place] [address] [place] pH (U) 5.5 [pH] Normal <8.5 [facility] Comment on above: Order Comment: Speci men Type: URINE SPECIMENOrdering Facility: [facility] Address: [address] [place] [address] Performed By: #### 2 4356-8 ####[facility] [id number] [place] [address] [place] Protein (U) [Mass/Vol] 2+ Abnormal Negative [facility] Comment on above: Order Comment: Speci men Type: URINE SPECIMENOrdering Facility: [facility] Address: [address] [place] [address] Performed By: #### 2 4356-8 ####[facility] [id number] [place] [address] [place] RBC LM.HPF (Urine sed) [#/Area] /[HPF] Abnormal 0-2 /HPF [facility] Comment on above: Order Comment: Speci men Type: URINE SPECIMENOrdering Facility: [facility] Address: [address] [place] [address] Performed By: #### 2 4356-8 ####[facility] [id number] [place] [address] [place] Specific gravity (U) [Rel density] 1.029 Normal 1.005-1.03 0 [facility] Comment on above: Order Comment: Speci men Type: URINE SPECIMENOrdering Facility: [facility] Address: [address] [place] [address] Performed By: #### 2 4356-8 ####[facility] [id number] [place] [address] [place] Urobilinogen Ql (U) 0.2 EU/dL Normal 0.2-1.0 EU/dL [facility] Comment on above: Order Comment: Speci men Type: URINE SPECIMENOrdering Facility: [facility] Address: [address] [place] [address] Performed By: #### 2 4356-8 ####[facility] [id number] [place] [address] [place] WBC LM.HPF (Urine sed) [#/Area] /[HPF] Abnormal 0-5 /HPF [facility] Comment on above: Order Comment: Speci men Type: URINE SPECIMENOrdering Facility: [facility] Address: [address] [place] [address] Performed By: #### 2 4356-8 ####[facility] [id number] [place] [address] [place] XR LUMBAR 3V AP/LAT/L5-S1on 11-02-2024 XR LUMBAR 3V AP/LAT/L5-S1 * * *Final Report* * * DATE OF EXAM: Nov 02 2024 1:40PM WOX 5228 - XR LUMBAR 3V AP/LAT/L5-S1 / PROCEDURE REASON: multiple diagnoses * * * * Physician Interpretation * * * * PROCEDURE: Thoracic and lumbar spines INDICATION: Acute midline back pain, unspecified back location Fall, subsequent encounter .pt fell yesterday and his having mid back pain radiating down her back. TECHNIQUE: XR THORACIC 3V AP/LAT/SWIMMERS, XR LUMBAR 3V AP/LAT/L5-S1 COMPARISON: Lumbar spine 07/16/2015 FINDINGS: Mild lower thoracic levoscoliosis. Severe T7 compression deformity, age uncertain and has no prior studies are available. This however, has a chronic appearance. Mild degenerative disc disease at multiple levels. No destructive osseous lesion or paraspinal abnormality. Stable mild compression deformity of the superior endplate of the L1 vertebra. No acute fracture. Mild retrolisthesis at L2-3. Mild degenerative disc disease at L2-3 and L3-4. No pars defects or advanced facet arthrosis. Sacroiliac joints are unremarkable. IMPRESSION: 1. T7 vertebral body compression deformity, age uncertain but likely chronic 2. Stable L1 compression deformity 3. Mild degenerative changes [employer] Agent: [facility] Transcribe Date/Time: Nov 05 2024 11:05A Dictated by : BRIANDA OROPEZA MD This examination was interpreted and the report reviewed and electronically signed by: BRIANDA OROPEZA MD on Nov 05 2024 11:08AM EST [id number] Normal [facility] XR THORACIC 3V AP/LAT/SWIMME RSon 11-02-2024 XR THORACIC 3V AP/LAT/SWIMMERS * * *Final Report* * * DATE OF EXAM: Nov 02 2024 1:40PM WOX 5261 - XR THORACIC 3V AP/LAT/SWIMMERS / PROCEDURE REASON: multiple diagnoses * * * * Physician Interpretation * * * * PROCEDURE: Thoracic and lumbar spines INDICATION: Acute midline back pain, unspecified back location Fall, subsequent encounter .pt fell yesterday and his having mid back pain radiating down her back. TECHNIQUE: XR THORACIC 3V AP/LAT/SWIMMERS, XR LUMBAR 3V AP/LAT/L5-S1 COMPARISON: Lumbar spine 07/16/2015 FINDINGS: Mild lower thoracic levoscoliosis. Severe T7 compression deformity, age uncertain and has no prior studies are available. This however, has a chronic appearance. Mild degenerative disc disease at multiple levels. No destructive osseous lesion or paraspinal abnormality. Stable mild compression deformity of the superior endplate of the L1 vertebra. No acute fracture. Mild retrolisthesis at L2-3. Mild degenerative disc disease at L2-3 and L3-4. No pars defects or advanced facet arthrosis. Sacroiliac joints are unremarkable. IMPRESSION: 1. T7 vertebral body compression deformity, age uncertain but likely chronic 2. Stable L1 compression deformity 3. Mild degenerative changes Farm Management Agent: BO Transcribe Date/Time: Nov 05 2024 11:05A Dictated by : BRIANDA OROPEZA MD This examination was interpreted and the report reviewed and electronically signed by: BRIANDA OROPEZA MD on Nov 05 2024 11:08AM EST [id number] Normal [facility] Absolute neutrophil countOrd ered By: Tejinder Mora on 10-30-2024 Neutrophils (Bld) [#/Vol] 2.9 10*3/uL 2.0-7.7 [facility] Albumin to globulin ratioOrd ered By: Tejinderpuja Mora on 10-30-2024 Albumin/Globulin [Mass ratio] 0.9 {ratio} 0.9-2.4 [facility] Basophil percentageOrdered B y: Tejinder Mora on 10-30-2024 Basophils/100 WBC (Bld) 0.4 % 0-1 [facility] Bilirubin Test strip Ql (U)O rdered By: Tejinderpuja Mora on 10-30-2024 Bilirubin Ql (U) Negative Negative [facility] Bilirubin, totalOrdered By: Tejinderpuja Mora on 10-30-2024 Bilirubin [Mass/Vol] 1.00 mg/dL 0.20-1.00 [facility] Comment on above: For patients on eltr ombopag therapy, use of Dimension Ethan TBIL is not recommended. Blood urea nitrogen (BUN)/cr eatinine ratioOrdered By: Tejinderpuja Mora on 10-30-2024 Urea nitrogen/Creatinine [Mass ratio] 14.4 mg/mg 10-20 [facility] Brain/Head without Contrasto n 10-30-2024 Brain/Head without Contrast [facility] Imaging Services [address] [place] [address] Brain/Head without Contrast MR#: [id number] Acct: [id number] Name: ROSANA MAKI Rep #: [id number] : 1940 F 84 From: Carol Jordan MD PCP: Dr. Rochelle Hackett MD Status: PRE ER Study: Brain/Head without Contrast Date of Exam: 10/15 03/08 Exam# [id number] Ordering Dr: Tejinder Mora MD EXAM: BRAIN/HEAD WITHOUT CONTRAST CLINICAL HISTORY: Head trauma on anticoagulant COMPARISON: 11/13/2019 TECHNIQUE: Noncontrast images of the head with multiplanar reconstructions. Dose reduction techniques were used including intermediate exposure control (AEC),iterative reconstruction technique, and/or mA and/or KV dose adjustments based on patient's size. FINDINGS: No acute intracranial hemorrhage. No loss of bowens-white differentiation.Moderate patchy areas of deep white matter hypoattenuation are present, which are nonspecific, but most commonly related to chronic ischemic microangiopathy.The ventricles and sulci are normal in appearance. The osseous structures are unremarkable. No soft tissue abnormality identified. The paranasal sinuses and mastoid air cells are clear. CT/Brain/Head without Contrast IMPRESSION: 1. No acute intracranial abnormality. 2. Moderate chronic deep white matter disease. Reading Location: [facility] CC: Dr. Rochelle Hackett MD; Dr. Tejinder Mora MD Farm Management Agent: Signed Normal [facility] CBC W/Diff, Automatedon 10-15 Absolute Lymph 1.55 X10 3/uL Normal 0.83-4.51 [facility] Comment on above: Performed By: #### L 500.4050, L503.6005, L100.0100 #### [facility] [address] [place], [address] Absolute Neut 2.9 X10 3/uL Normal 2.0-7.7 [facility] Comment on above: Performed By: #### L 500.4050, L503.6005, L100.0100 #### [facility] [address] [place], [address] Basophils/100 WBC (Bld) 0.4 % Normal 0-1 [facility] Comment on above: Performed By: #### L 500.4050, L503.6005, L100.0100 #### [facility] [address] [place], [address] Eosinophils/100 WBC (Bld) 0.4 % Normal 0-5 [facility] Comment on above: Performed By: #### L 500.4050, L503.6005, L100.0100 #### [facility] [address] [place], [address] Erythrocyte distribution width (RBC) [Ratio] 12.8 % Normal 11.6-14.6 [facility] Comment on above: Performed By: #### L 500.4050, L503.6005, L100.0100 #### [facility] [address] [place], [address] Hematocrit (Bld) [Volume fraction] 37.2 % Normal 37-47 [facility] Comment on above: Performed By: #### L 500.4050, L503.6005, L100.0100 #### [facility] [address] [place], [address] Hemoglobin (Bld) [Mass/Vol] 13.3 g/dL Normal 12.0-15.0 [facility] Comment on above: Performed By: #### L 500.4050, L503.6005, L100.0100 #### [facility] [address] [place], [address] IG% 0.600 Normal 0.0-0.9 [facility] Comment on above: Result Comment: IG% - Immature Granulocytes (promyelocytes, myelocytes and metamyelocytes) > 1% indicates that a LEFT SHIFT is Present. Performed By: #### L 500.4050, L503.6005, L100.0100 #### [facility] [address] [place], [address] Lymphocytes/100 WBC (Bld) 29.5 % Normal 19-41 [facility] Comment on above: Performed By: #### L 500.4050, L503.6005, L100.0100 #### [facility] [address] [place], [address] MCH (RBC) [Entitic mass] 32.7 pg High 27.0-32.0 [facility] Comment on above: Performed By: #### L 500.4050, L503.6005, L100.0100 #### [facility] [address] [place], [address] MCHC (RBC) [Mass/Vol] 35.8 g/dL Normal 32-36 [facility] Comment on above: Performed By: #### L 500.4050, L503.6005, L100.0100 #### [facility] [address] [place], [address] MCV (RBC) [Entitic vol] 91.4 fL Normal 81-99 [facility] Comment on above: Performed By: #### L 500.4050, L503.6005, L100.0100 #### [facility] [address] [place], [address] Monocytes/100 WBC (Bld) 13.7 % High 0-10 [facility] Comment on above: Performed By: #### L 500.4050, L503.6005, L100.0100 #### [facility] [address] [place], [address] Neutrophils/100 WBC (Bld) 55.4 % Normal 47-70 [facility] Comment on above: Performed By: #### L 500.4050, L503.6005, L100.0100 #### [facility] [address] [place], [address] Nucleated RBC (Bld) [#/Vol] 0 10*3/uL Normal 0-5 [facility] Comment on above: Performed By: #### L 500.4050, L503.6005, L100.0100 #### [facility] [address] [place], [address] Platelet mean volume (Bld) [Entitic vol] 9.5 fL Normal 6.2-12.0 [facility] Comment on above: Performed By: #### L 500.4050, L503.6005, L100.0100 #### [facility] [address] [place], [address] Platelets (Bld) [#/Vol] 256 10*3/uL Normal 150-450 [facility] Comment on above: Performed By: #### L 500.4050, L503.6005, L100.0100 #### [facility] [address] [place], [address] RBC (Bld) [#/Vol] 4.07 10*6/uL Low 4.2-5.4 [facility] Comment on above: Performed By: #### L 500.4050, L503.6005, L100.0100 #### [facility] [address] [place], [address] RDW SD 42.8 fl Normal 35.1-43.9 [facility] Comment on above: Performed By: #### L 500.4050, L503.6005, L100.0100 #### [facility] [address] [place], [address] WBC (Bld) [#/Vol] 5.3 10*3/uL Normal 4.4-11.0 [facility] Comment on above: Performed By: #### L 500.4050, L503.6005, L100.0100 #### [facility] [address] [place], [address] Carbon dioxide measurementOr dered By: Tejinder Mora on 10-30-2024 CO2 [Moles/Vol] 27.0 mmol/L 21.0-32.0 [facility] Chloride measurementOrdered By: Tejinder Mora on 10-30-2024 Chloride [Moles/Vol] 91 mmol/L Low 98-107 [facility] Comprehensive Metabolic Prof ilon 10-30-2024 Albumin [Mass/Vol] 3.3 g/dL Normal 3.2-5.0 [facility] Comment on above: Performed By: #### L 500.4050, L503.6005, L100.0100 #### [facility] [address] [place], [address] Albumin/Globulin [Mass ratio] 0.9 {ratio} Normal 0.9-2.4 [facility] Comment on above: Performed By: #### L 500.4050, L503.6005, L100.0100 #### [facility] [address] [place], [address] ALK P 95 U/L Normal 45-117 [facility] Comment on above: Performed By: #### L 500.4050, L503.6005, L100.0100 #### [facility] [address] [place], [address] ALT [Catalytic activity/Vol] 29 U/L Normal 13-56 [facility] Comment on above: Performed By: #### L 500.4050, L503.6005, L100.0100 #### [facility] [address] [place], [address] AST [Catalytic activity/Vol] 29 U/L Normal 15-37 [facility] Comment on above: Performed By: #### L 500.4050, L503.6005, L100.0100 #### [facility] [address] [place], [address] Bilirubin [Mass/Vol] 1.00 mg/dL Normal 0.20-1.00 [facility] Comment on above: Result Comment: For patients on eltrombopag therapy, use of Dimension Ethan TBIL is not recommended. Performed By: #### L 500.4050, L503.6005, L100.0100 #### [facility] [address] [place], [address] BUN/CRE 14.4 RATIO Normal 10-20 [facility] Comment on above: Performed By: #### L 500.4050, L503.6005, L100.0100 #### [facility] [address] [place], [address] CA,Total 8.7 mg/dL Normal 8.5-10.1 [facility] Comment on above: Performed By: #### L 500.4050, L503.6005, L100.0100 #### [facility] [address] [place], [address] Chloride [Moles/Vol] 91 mmol/L Low 98-107 [facility] Comment on above: Performed By: #### L 500.4050, L503.6005, L100.0100 #### [facility] [address] [place], [address] CO2 [Moles/Vol] 27.0 mmol/L Normal 21.0-32.0 [facility] Comment on above: Performed By: #### L 500.4050, L503.6005, L100.0100 #### [facility] [address] [place], [address] Creatinine [Mass/Vol] 1.11 mg/dL High 0.55-1.02 [facility] Comment on above: Result Comment: The validity of the calculated GFR GFRAA in patients over 70 years has not been determined. Clinical correlation is essential. Performed By: #### L 500.4050, L503.6005, L100.0100 #### [facility] [address] [place], [address] ECRCL 35.10 ml/min Normal [facility] Comment on above: Performed By: #### L 500.4050, L503.6005, L100.0100 #### [facility] [address] [place], [address] EST GFR - AA 60 mL/min Normal >60 [facility] Comment on above: Result Comment: Afri can Somali GFR Calc Performed By: #### L 500.4050, L503.6005, L100.0100 #### [facility] [address] [place], [address] GAP 10 Normal 5-15 [facility] Comment on above: Performed By: #### L 500.4050, L503.6005, L100.0100 #### [facility] [address] [place], [address] GFR/1.73 sq M.predicted among non-blacks MDRD (S/P/Bld) [Vol rate/Area] 50 mL/min/{1.73_m2} Low >60 [facility] Comment on above: Result Comment: Non- GFR Calc Performed By: #### L 500.4050, L503.6005, L100.0100 #### [facility] [address] [place], [address] Globulin (S) [Mass/Vol] 3.5 g/dL Normal 2.2-4.2 [facility] Comment on above: Performed By: #### L 500.4050, L503.6005, L100.0100 #### [facility] [address] [place], [address] Glucose [Mass/Vol] 120 mg/dL High 74-106 [facility] Comment on above: Result Comment: Fast ing Glucose result from 100 to 125 mg/dL suggests IMPAIRED HOMEOSTASIS per A.D.A. criteria. Performed By: #### L 500.4050, L503.6005, L100.0100 #### [facility] [address] [place], [address] Potassium [Moles/Vol] 3.3 mmol/L Low 3.5-5.1 [facility] Comment on above: Performed By: #### L 500.4050, L503.6005, L100.0100 #### [facility] [address] [place], [address] Sodium [Moles/Vol] 127 mmol/L Low 136-145 [facility] Comment on above: Performed By: #### L 500.4050, L503.6005, L100.0100 #### [facility] [address] [place], [address] T PROT 6.8 g/dL Normal 6.4-8.2 [facility] Comment on above: Performed By: #### L 500.4050, L503.6005, L100.0100 #### [facility] [address] [place], [address] Urea nitrogen [Mass/Vol] 16 mg/dL Normal 7-18 [facility] Comment on above: Performed By: #### L 500.4050, L503.6005, L100.0100 #### [facility] [address] [place], [address] Emergency Department Summary on 10-30-2024 Emergency Department Summary [facility] Medical Records Department [address] [place] [address] Emergency Department Summary 10/30/24 MR#: [id number] Acct: [id number] Name: ROSANA MAKI Rep #: [id number] : 1940 84 From: Tejinder Mora MD PCP: Dr. Rochelle Hackett MD Status:REG ER Location: ED HPI History of Present Illness Chief Complaint: Fall Detail of Chief Complaint: Orthostatic lightheadedness, fall with head trauma on anticoagulant Informant: patient Onset/Context/Timing Onset: Today (Nausea vomiting) and Hours (Incident occurred 1 hour prior to presentation.) Context: Sudden Onset Timing: Continuous (Nausea is continuous.) Quality: Head pain, nausea, lightheadedness Location: Multitude Current Severity: Mild Maximum Severity: Severe Worsened by: Upright position Relieved by: Nothing Associated Symptoms Associated Symptoms: HPI narrative Narrative Narrative: Patient is an 84-year-old woman on apixaban for chronic atrial fibrillation. Patient apparently went to a movie. She states she sat in the front row. She is now ill with nausea and vomiting. She denies diarrhea. She does report chills. She denies fever. She does complain of headache. She denies double vision, blurred vision loss of vision. She denies epistaxis, rhinorrhea, congestion postnasal drainage. She denies sore throat. She denies cough or shortness of breath. Patient denies neck pain. She denies paresthesia, anesthesia or motor weakness. Patient denies blood or mucus in her diarrhea. She states her stool is brown brown she denies coffee-ground emesis or hematemesis. Prior similar symptoms: Yes Recent Illness/Hospitalization: No PFSH PFS Medical History Motion sickness Adrenal insufficiency History of atrial flutter Breast pain, right History of breast cancer COVID-19 Chronic diarrhea Osteopenia 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 Lichen sclerosus Atrophic vaginitis TIA (transient ischemic attack) SIADH (syndrome of inappropriate ADH production) Anemia GERD (gastroesophageal reflux disease) Diverticulitis Migraine Osteopenia Nonrheumatic mitral (valve) prolapse Paroxysmal atrial fibrillation Ovarian cyst Compression fracture of L1 lumbar vertebra Paroxysmal atrial flutter Atrial flutter IBS (irritable bowel syndrome) history of blood transfusion 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) Chronic hyponatremia Home Medications ???Medication ???Instructions ???Recorded ???Last Taken ???Type Bilaterl knee high compression #2 ea 05/29/22 Unknown Rx stockings (10-20) calcium carbonate 600 mg PO DAILY 10/14/22 Unknown H istory cholecalciferol (vitamin D3) 10 2,000 unit PO DAILY supplement Unknown History mcg (400 unit) capsule cranberry 500 mg capsule 500 mg PO BID 01/18/24 Unknown His tory magnesium oxide 400 mg (241.3 mg 400 mg PO DAILY #90 tabs 01/21/24 Unknown Rx magnesium) tablet metoprolol succinate 25 mg 25 mg PO .COMPLEX #135 tabs Unknown Rx tablet,extended release 24 hr ondansetron 4 mg disintegrating 4 mg PO Q8H PRN PRN Nausea #10 tab s 01/23/24 Unknown Rx tablet clobetasol 0.05 % topical cream 1 applic topical .COMPLEX #15 gram s 03/08/24 Unknown Rx ferrous sulfate 325 mg (65 mg 325 mg PO DAILY 03/08/24 Unknown H istory iron) tablet (FeroSul) ascorbate calcium (vitamin C) 500 500 mg PO QDAY 06/07/24 Unknown H istory mg tablet apixaban 5 mg tablet (Eliquis) 5 mg PO BID #60 TABLETS 08/05/24 U nknown Rx esomeprazole magnesium 40 mg See Rx Instructions .Route .COMPLE X 09/09/24 Unknown History capsule,delayed release midodrine 2.5 mg tablet 2.5 mg PO BID #60 tabs 09/09/24 Un known Rx sodium chloride 1,000 mg soluble 1,000 mg PO DAILY PRN electrolyte 09/09/24 Unknown History tablet replenishment dofetilide 250 mcg capsule 250 mcg PO BID #180 caps 10/06/24 Unknown Rx meclizine .ROUTE PRN dizziness, nausea 10/30 Unknown History Allergy/AdvReac Type Severity Reaction Status Date / Time cantaloupe Allergy Severe Anaphylaxis Verified 10/30/24 20:06 grass pollen Allergy Severe Unknown Verified 10/30/24 20:06 Penicillins Allergy Severe Anaphylaxis Verified 10/30/24 20:06 Sulfa (Sulfonamide Allergy Unknown Other Verified 10/30/24 20:06 Antibiotics) mold Allergy Unknown Verified 10/30/24 20:06 pollen extracts Allergy Unknown Verified 10/30/24 20:06 erythromycin base AdvReac Severe Unknown Verified 10/30/24 20:06 lansoprazole (From Prevacid) AdvReac Severe Nausea/Vom/ Verified 10/30/24 20:06 Diarrhea adhesive tape AdvReac Intermediate Rash Verified 10/30/24 20:06 Family History Father Unknown family medical history Mother Uterine cancer (more content not included)... Normal [facility] Eosinophil percentageOrdered By: Tejinder Mora on 10-30-2024 Eosinophils/100 WBC (Bld) 0.4 % 0-5 [facility] Epithelial cells.squamous LM Ql (Urine sed)Ordered By: Tejinder Mora on 10-30-2024 Epithelial cells.squamous LM.HPF (Urine sed) [#/Area] 0 /[HPF] 5-10 [facility] Erythrocyte distribution wid th (RBC) [Ratio]Ordered By: Tejinder Mora on 10-30-2024 Erythrocyte distribution width (RBC) [Entitic vol] 42.8 fL 35.1-43.9 [facility] Erythrocyte distribution wid th ratioOrdered By: Tejinderpuja Mora on 10-30-2024 Erythrocyte distribution width (RBC) [Ratio] 12.8 % 11.6-14.6 [facility] Estimated glomerular filtrat ion rate (GFR) AmericanOrdered By: Tejinder Mora on 10-30-2024 Estimated GFR (MDRD) Amer 60 mL/min >60 [facility] Comment on above: GFR Calc Estimation of creatinine khushboo aranceOrdered By: Tejinder Mora on 10-30-2024 Estimated Creatinine Clearance Calc 35.10 ml/min [facility] Fine Granular Casts LM.LPF ( Urine sed) [#/Area]Ordered By: Tejinder Mora on 10-30-2024 Urine Fine Granular Casts 0-5 SEEN /lpf 0-5 [facility] Glomerular filtration rate ( GFR) estimationOrdered By: Tejinder Mora on 10-30-2024 Estimated GFR (MDRD) Non-Af Amer 50 mL/min Low >60 [facility] Comment on above: Non- GFR Calc Glucose Ql (U)Ordered By: Vero Mora on 10-30-2024 Urine Glucose (UA) Normal mg/dl Normal [facility] Glucose measurementOrdered B y: Tejinder Mora on 10-30-2024 Glucose [Mass/Vol] 120 mg/dL High 74-106 [facility] Comment on above: Fasting Glucose resu lt from 100 to 125 mg/dL suggests IMPAIRED HOMEOSTASIS per A.D.A. criteria. Hematocrit Auto (Bld) [Volum e fraction]Ordered By: Tejinder Mora on 10-30-2024 Hematocrit (Bld) [Volume fraction] 37.2 % 37-47 [facility] Hemoglobin measurementOrdere d By: Tejinder Mora on 10-30-2024 Hemoglobin (Bld) [Mass/Vol] 13.3 g/dL 12.0-15.0 [facility] Hyaline casts LM.LPF (Urine sed) [#/Area]Ordered By: Tejinder Mora on 10-30-2024 Hyaline casts LM Ql (Urine sed) 5-10 SEEN /lpf 0-5 [facility] Immature granulocytes/100 WB C Auto (Bld)Ordered By: Tejinderpuja Mora on 10-30-2024 Immature granulocytes/100 WBC (Bld) 0.600 % 0.0-0.9 [facility] Comment on above: IG% - Immature Granu locytes (promyelocytes, myelocytes and metamyelocytes) > 1% indicates that a LEFT SHIFT is Present. Ketones Test strip Ql (U)Ord ered By: Tejinder Mora on 10-30-2024 Ketones Ql (U) 15 mg/dl High Negative [facility] - Chemistry and C hemistry - challengeOrdered By: Tejinderpuja Mora on 10-30-2024 AST [Catalytic activity/Vol] 29 U/L 15-37 [facility] Lactic Acidon 10-30-2024 Lactate [Moles/Vol] 2.0 mmol/L Normal 0.4-1.9 [facility] Comment on above: Order Comment: Y Result Comment: Crit ical Result(s) Called at: 20:50:47 10/30/2024 by: Caitie Nayak to LSparr. Results read back by same. Performed By: #### L 500.4050, L503.6005, L100.0100 #### [facility] [address] [place], [place], [id number] Lactic acid measurementOrder ed By: Tejinder Mora on 10-30-2024 Lactate [Moles/Vol] 2.0 mmol/L 0.4-2.0 [facility] Comment on above: Critical Result(s) C alled at: 20:50:47 10/30/2024 by: Caitie Nayak to [employer]parr. Results read back by same. Lymphocytes Auto (Unsp spec) [#/Vol]Ordered By: Tejinder Mora on 10-30-2024 Lymphocytes (Bld) [#/Vol] 1.55 10*3/uL 0.83-4.51 [facility] Lymphocytes/100 WBC Auto (Un sp spec)Ordered By: Tejinder Mora on 10-30-2024 Lymphocytes/100 WBC (Bld) 29.5 % 19-41 [facility] MCV (mean corpuscular volume ) determinationOrdered By: Tejinder Mora on 10-30-2024 MCV (RBC) [Entitic vol] 91.4 fL 81-99 [facility] Mean corpuscular hemoglobin (MCH) determinationOrdered By: Tejinder Mora on 10-30-2024 MCH (RBC) [Entitic mass] 32.7 pg High 27.0-32.0 [facility] Mean corpuscular hemoglobin concentration (MCHC) determinationOrdered By: Tejinder Mora on 10-30-2024 MCHC (RBC) [Mass/Vol] 35.8 g/dL 32-36 [facility] Mean platelet volume determi nationOrdered By: Tejinderpuja Mora on 10-30-2024 Platelet mean volume (Bld) [Entitic vol] 9.5 fL 6.2-12.0 [facility] Microscopic analysis of urin e for red blood cells (RBC)Ordered By: Tejinder Mora on 10-30-2024 Urine RBC 0-5 SEEN /hpf 0-5 [facility] Monocyte percentageOrdered B y: Tejinder Mora on 10-30-2024 Monocytes/100 WBC (Bld) 13.7 % High 0-10 [facility] Mucus LM Ql (Urine sed)Order ed By: Tejinder Mora on 10-30-2024 Mucus Ql (Urine sed) 1+ /hpf [facility] Neutrophil percentageOrdered By: Tejinder Mora on 10-30-2024 Neutrophils/100 WBC (Bld) 55.4 % 47-70 [facility] Nitrite Test strip Ql (U)Ord ered By: Tejinder Mora on 10-30-2024 Nitrite Ql (U) Negative Negative [facility] Nucleated red blood cell per centageOrdered By: Tejinder Mora on 10-30-2024 Nucleated RBC/100 WBC (Bld) [Ratio] 0 % 0-5 [facility] Platelet countOrdered By: Vero Mora on 10-30-2024 Platelets (Bld) [#/Vol] 256 10*3/uL 150-450 [facility] Potassium measurementOrdered By: Tejinder Mora on 10-30-2024 Potassium [Moles/Vol] 3.3 mmol/L Low 3.5-5.1 [facility] Protein Test strip Ql (U)Ord ered By: Tejinder Mora on 10-30-2024 Protein Ql (U) 30 mg/dl High Negative [facility] RBC Auto (Bld) [#/Vol]Ordere d By: Tejinder Mora on 10-30-2024 RBC (Bld) [#/Vol] 4.07 10*6/uL Low 4.2-5.4 [facility] Serum anion gap measurementO rdered By: Tejinder Mora on 10-30-2024 Anion gap [Moles/Vol] 10 mmol/L 5-15 [facility] Serum globulin measurementOr dered By: Tejinder Mora on 10-30-2024 Globulin (S) [Mass/Vol] 3.5 g/dL 2.2-4.2 [facility] Serum or plasma alanine khan otransferase (ALT) measurementOrdered By: Tejinder Mora on 10-30-2024 ALT [Catalytic activity/Vol] 29 U/L 13-56 [facility] Serum or plasma albumin glo urement (mass/volume)Ordered By: Tejinder Mora on 10-30-2024 Albumin [Mass/Vol] 3.3 g/dL 3.2-5.0 [facility] Serum or plasma alkaline lourdes sphatase measurementOrdered By: Tejinder Mora on 10-30-2024 ALP [Catalytic activity/Vol] 95 U/L 45-117 [facility] Serum or plasma calcium glo urement (mass/volume)Ordered By: Tejinder Mora on 10-30-2024 Calcium [Mass/Vol] 8.7 mg/dL 8.5-10.1 [facility] Serum or plasma creatinine m easurement (mass/volume)Ordered By: [facility] on 10-30-2024 Creatinine [Mass/Vol] 1.11 mg/dL High 0.55-1.02 [facility] Comment on above: The validity of the calculated GFR & GFRAA in patients over 70 years has not been determined. Clinical correlation is essential. Serum or plasma urea nitroge n measurement (mass/volume)Ordered By: [facility] on 10-30-2024 Urea nitrogen [Mass/Vol] 16 mg/dL 7-18 [facility] Sodium levelOrdered By: [facility] on 10-30-2024 Sodium [Moles/Vol] 127 mmol/L Low 136-145 [facility] Total proteinOrdered By: [facility] on 10-30-2024 Protein [Mass/Vol] 6.8 g/dL 6.4-8.2 [facility] Urinalysis, Completeon 10-30 CAST,FINE GRAN 0-5 SEEN Normal 0-5 [facility] Comment on above: Order Comment: JULIÁN TER SPECIMEN Performed By: #### L 500.2500 #### [facility] [address] [place], [address] CAST,HYALINE 5-10 SEEN Normal 0-5 [facility] Comment on above: Order Comment: JULIÁN TER SPECIMEN Performed By: #### L 500.2500 #### [facility] [address] [place], [address] Mucus Ql (Urine sed) 1+ /hpf Normal [facility] Comment on above: Order Comment: JULIÁN TER SPECIMEN Performed By: #### L 500.2500 #### [facility] [address] [place], [address] RBC 0-5 SEEN Normal 0-5 [facility] Comment on above: Order Comment: JULIÁN TER SPECIMEN Performed By: #### L 500.2500 #### [facility] [address] [place], [address] WBC 10-25 SEEN Normal 0-5 [facility] Comment on above: Order Comment: JULIÁN TER SPECIMEN Performed By: #### L 500.2500 #### [facility] [address] [place], [place], [id number] BACTERIA 0 SEEN Normal None Seen [facility] Comment on above: Order Comment: JULIÁN TER SPECIMEN Performed By: #### L 500.2500 #### [facility] [address] [place], [place], [id number] EPI,SQUAMOUS 0 SEEN Normal 5-10 [facility] Comment on above: Order Comment: JULIÁN TER SPECIMEN Performed By: #### L 500.2500 #### [facility] [address] [place], [place], [id number] Urine blood detectionOrdered By: Tejinder Mora on 10-30-2024 Urine Occult Blood 50 /ul High Negative [facility] Urine clarityOrdered By: Tejinder Mora on 10-30-2024 Clarity (U) Sl. Cloudy Clear [facility] Urine color determinationOrd ered By: Tejinder Mora on 10-30-2024 Color (U) Yellow Yellow [facility] Urine leukocyte esterase det ection by dipstickOrdered By: Tejinder Mora on 10-30-2024 Leukocyte esterase Test strip Ql (U) 500 /ul High Negative [facility] Urine pHOrdered By: Tejinder daley on 10-30-2024 pH (U) 7.0 [pH] 5.0 - 8.0 [facility] Urine sediment bacteria coun t by microscopy (number/high power field)Ordered By: Tejinder Mora on 10-30-2024 Bacteria LM.HPF (Urine sed) [#/Area] 0 /[HPF] None Seen [facility] Urine specific gravity measu rementOrdered By: Tejinder Mora on 10-30-2024 Specific gravity (U) [Rel density] 1.010 1.002-1.03 0 [facility] Urobilinogen Ql (U)Ordered B y: Tejinder Mora on 10-30-2024 Urine Urobilinogen Normal mg/dl Normal [facility] White blood cell (WBC) count Ordered By: Tejinder Mora on 10-30-2024 WBC (Bld) [#/Vol] 5.3 10*3/uL 4.4-11.0 [facility] White blood cell countOrdere d By: Tejinder Mora on 10-30-2024 Urine WBC 10-25 SEEN /hpf 0-5 [facility] Basic Metabolic Profile (BMP )on 09-20-2024 BUN/CRE 21.7 RATIO High 10-20 [facility] Comment on above: Performed By: #### L 500.2500 #### [facility] [address] [place], [address] CA,Total 8.6 mg/dL Normal 8.5-10.1 [facility] Comment on above: Performed By: #### L 500.2500 #### [facility] [address] [place], [address] Chloride [Moles/Vol] 100 mmol/L Normal 98-107 [facility] Comment on above: Performed By: #### L 500.2500 #### [facility] [address] [place], [address] CO2 [Moles/Vol] 29.0 mmol/L Normal 21.0-32.0 [facility] Comment on above: Performed By: #### L 500.2500 #### [facility] [address] [place], [address] Creatinine [Mass/Vol] 0.97 mg/dL Normal 0.55-1.02 [facility] Comment on above: Result Comment: The validity of the calculated GFR GFRAA in patients over 70 years has not been determined. Clinical correlation is essential. Performed By: #### L 500.2500 #### [facility] [address] [place], [address] ECRCL 38.26 ml/min Normal [facility] Comment on above: Performed By: #### L 500.2500 #### [facility] [address] [place], [address] EST GFR - AA 71 mL/min Normal >60 [facility] Comment on above: Result Comment: Afri can Somali GFR Calc Performed By: #### L 500.2500 #### [facility] [address] [place], [address] GAP 4 Low 5-15 [facility] Comment on above: Performed By: #### L 500.2500 #### [facility] [address] [place], [address] GFR/1.73 sq M.predicted among non-blacks MDRD (S/P/Bld) [Vol rate/Area] 59 mL/min/{1.73_m2} Low >60 [facility] Comment on above: Result Comment: Non- GFR Calc Performed By: #### L 500.2500 #### [facility] [address] [place], [address] Glucose [Mass/Vol] 119 mg/dL High 74-106 [facility] Comment on above: Result Comment: Fast ing Glucose result from 100 to 125 mg/dL suggests IMPAIRED HOMEOSTASIS per A.D.A. criteria. Performed By: #### L 500.2500 #### [facility] [address] [place], [address] Potassium [Moles/Vol] 4.3 mmol/L Normal 3.5-5.1 [facility] Comment on above: Performed By: #### L 500.2500 #### [facility] [address] [place], [address] Sodium [Moles/Vol] 132 mmol/L Low 136-145 [facility] Comment on above: Performed By: #### L 500.2500 #### [facility] [address] [place], [address] Urea nitrogen [Mass/Vol] 21 mg/dL High 7-18 [facility] Comment on above: Performed By: #### L 500.2500 #### [facility] [address] [place], [address] Blood urea nitrogen (BUN)/cr eatinine ratioOrdered By: Larissa Nguyễn on 09-20-2024 Urea nitrogen/Creatinine [Mass ratio] 21.7 mg/mg High 10-20 [facility] Carbon dioxide measurementOr dered By: Larissa Nguyễn on 09-20-2024 CO2 [Moles/Vol] 29.0 mmol/L 21.0-32.0 [facility] Chloride measurementOrdered By: Larissa Nguyễn on 09-20-2024 Chloride [Moles/Vol] 100 mmol/L 98-107 [facility] Estimated glomerular filtrat ion rate (GFR) AmericanOrdered By: Larissa Nguyễn on 09-20-2024 Estimated GFR (MDRD) Amer 71 mL/min >60 [facility] Comment on above: GFR Calc Estimation of creatinine khushboo aranceOrdered By: Larissa Nguyễn on 09-20-2024 Estimated Creatinine Clearance Calc 38.26 ml/min [facility] Glomerular filtration rate ( GFR) estimationOrdered By: Larissa Nguyễn on 09-20-2024 Estimated GFR (MDRD) Non-Af Amer 59 mL/min Low >60 [facility] Comment on above: Non- GFR Calc Glucose measurementOrdered B y: Larissa Nguyễn on 09-20-2024 Glucose [Mass/Vol] 119 mg/dL High 74-106 [facility] Comment on above: Fasting Glucose resu lt from 100 to 125 mg/dL suggests IMPAIRED HOMEOSTASIS per A.D.A. criteria. Potassium measurementOrdered By: Larissa Nguyễn on 09-20-2024 Potassium [Moles/Vol] 4.3 mmol/L 3.5-5.1 [facility] Serum anion gap measurementO rdered By: Larissa Nguyễn on 09-20-2024 Anion gap [Moles/Vol] 4 mmol/L Low 5-15 [facility] Serum or plasma calcium glo urement (mass/volume)Ordered By: Larissa Nguyễn on 09-20-2024 Calcium [Mass/Vol] 8.6 mg/dL 8.5-10.1 [facility] Serum or plasma creatinine m easurement (mass/volume)Ordered By: Larissa Nguyễn on 09-20-2024 Creatinine [Mass/Vol] 0.97 mg/dL 0.55-1.02 [facility] Comment on above: The validity of the calculated GFR & GFRAA in patients over 70 years has not been determined. Clinical correlation is essential. Serum or plasma urea nitroge n measurement (mass/volume)Ordered By: Larissa Nguyễn on 09-20-2024 Urea nitrogen [Mass/Vol] 21 mg/dL High - [facility] Sodium levelOrdered By: Louise Nguyễn on 09-20-2024 Sodium [Moles/Vol] 132 mmol/L Low 136-145 [facility] Basic Metabolic Profile (BMP )on 09-19-2024 BUN Normal - [facility] Comment on above: Result Comment: NOT SCHEDULED FOR TODAY BUT TOMORROW 09/20/24 PER CM NURSE Performed By: #### L 500.2500 #### [facility] [address] [place], [address] BUN/CRE Normal 10-20 [facility] Comment on above: Result Comment: NOT SCHEDULED FOR TODAY BUT TOMORROW 09/20/24 PER CM NURSE Performed By: #### L 500.2500 #### [facility] [address] [place], [address] CA,Total Normal 8.5-10.1 [facility] Comment on above: Result Comment: NOT SCHEDULED FOR TODAY BUT TOMORROW 09/20/24 PER CM NURSE Performed By: #### L 500.2500 #### [facility] [address] [place], [address] CL Normal 98-107 [facility] Comment on above: Result Comment: NOT SCHEDULED FOR TODAY BUT TOMORROW 09/20/24 PER CM NURSE Performed By: #### L 500.2500 #### [facility] [address] [place], [address] CO2 Normal 21.0-32.0 [facility] Comment on above: Result Comment: NOT SCHEDULED FOR TODAY BUT TOMORROW 09/20/24 PER CM NURSE Performed By: #### L 500.2500 #### [facility] [address] [place], [address] CREAT,SERUM Normal 0.55-1.02 [facility] Comment on above: Result Comment: NOT SCHEDULED FOR TODAY BUT TOMORROW 09/20/24 PER CM NURSE Performed By: #### L 500.2500 #### [facility] [address] [place], [address] EST GFR Normal >60 [facility] Comment on above: Result Comment: NOT SCHEDULED FOR TODAY BUT TOMORROW 09/20/24 PER CM NURSE Performed By: #### L 500.2500 #### [facility] [address] [place], [address] EST GFR - AA Normal >60 [facility] Comment on above: Result Comment: NOT SCHEDULED FOR TODAY BUT TOMORROW 09/20/24 PER CM NURSE Performed By: #### L 500.2500 #### [facility] [address] [place], [address] GAP Normal 5-15 [facility] Comment on above: Result Comment: NOT SCHEDULED FOR TODAY BUT TOMORROW 09/20/24 PER CM NURSE Performed By: #### L 500.2500 #### [facility] [address] [place], [address] GLU Normal 74-106 [facility] Comment on above: Result Comment: NOT SCHEDULED FOR TODAY BUT TOMORROW 09/20/24 PER CM NURSE Performed By: #### L 500.2500 #### [facility] [address] [place], [address] Potassium Normal 3.5-5.1 [facility] Comment on above: Result Comment: NOT SCHEDULED FOR TODAY BUT TOMORROW 09/20/24 PER CM NURSE Performed By: #### L 500.2500 #### [facility] [address] [place], [address] Basic Metabolic Profile (BMP) Normal 136-145 [facility] Comment on above: Result Comment: NOT SCHEDULED FOR TODAY BUT TOMORROW 09/20/24 PER CM NURSE Performed By: #### L 500.2500 #### [facility] [address] [place], [address] Basic Metabolic Profile (BMP )on 09-12-2024 BUN Normal 7-18 [facility] Comment on above: Result Comment: PER OM AND SHANDALE NURSE PT NOT COMING IN TODAY Performed By: #### L 500.2500 #### [facility] [address] [place], [address] BUN/CRE Normal 10-20 [facility] Comment on above: Result Comment: PER OM AND SHANDALE NURSE PT NOT COMING IN TODAY Performed By: #### L 500.2500 #### [facility] [address] [place], [address] CA,Total Normal 8.5-10.1 [facility] Comment on above: Result Comment: PER OM AND SHANDALE NURSE PT NOT COMING IN TODAY Performed By: #### L 500.2500 #### [facility] [address] [place], [address] CL Normal 98-107 [facility] Comment on above: Result Comment: PER OM AND SHANDALE NURSE PT NOT COMING IN TODAY Performed By: #### L 500.2500 #### [facility] [address] [place], [address] CO2 Normal 21.0-32.0 [facility] Comment on above: Result Comment: PER OM AND SHANDALE NURSE PT NOT COMING IN TODAY Performed By: #### L 500.2500 #### [facility] [address] [place], [address] CREAT,SERUM Normal 0.55-1.02 [facility] Comment on above: Result Comment: PER OM AND SHANDALE NURSE PT NOT COMING IN TODAY Performed By: #### L 500.2500 #### [facility] [address] [place], [address] EST GFR Normal >60 [facility] Comment on above: Result Comment: PER OM AND SHANDALE NURSE PT NOT COMING IN TODAY Performed By: #### L 500.2500 #### [facility] [address] [place], [address] EST GFR - AA Normal >60 [facility] Comment on above: Result Comment: PER OM AND SHANDALE NURSE PT NOT COMING IN TODAY Performed By: #### L 500.2500 #### [facility] [address] [place], [address] GAP Normal 5-15 [facility] Comment on above: Result Comment: PER OM AND SHANDALE NURSE PT NOT COMING IN TODAY Performed By: #### L 500.2500 #### [facility] [address] [place], [address] GLU Normal 74-106 [facility] Comment on above: Result Comment: PER OM AND SHANDALE NURSE PT NOT COMING IN TODAY Performed By: #### L 500.2500 #### [facility] [address] [place], [address] Potassium Normal 3.5-5.1 [facility] Comment on above: Result Comment: PER OM AND SHANDALE NURSE PT NOT COMING IN TODAY Performed By: #### L 500.2500 #### [facility] [address] [place], [address] Basic Metabolic Profile (BMP) Normal 136-145 [facility] Comment on above: Result Comment: PER OM AND SHANDALE NURSE PT NOT COMING IN TODAY Performed By: #### L 500.2500 #### [facility] [address] [place], [address] Cardiology Visit Reporton Cardiology Visit Report [facility] [address] [place] [address] OFFICE VISIT Date of Service: 09/09/24 MR#: [id number] Acct: [id number] Name: ROSANA MAKI Rep #: [id number] : 1940 Provider: Dr. Brian Cooley MD Age/Sex: 84/F Location[place] [facility] [place] Status: Signed HPI HPI History of Present Illness Details: ROSANA MAKI, is a 84F who presents to the office today for a follow-up visit. She has a history of paroxysmal atrial for ablation status post ablation mitral valve prolapse and intermittent palpitations. She is on a low dose beta elsa and dofetilide. She is here with her [id number] who is a physician. She continues to complain of fatigue she does get palpitations occasionally especially in the heat and humidity and she does get some shortness of breath with activity. He remember her last echocardiogram a year ago demonstrated preserved ejection fraction of 60% equivocal mitral valve prolapse and trivial mitral regurgitation. She has had some lightheadedness on occasion and has been orthostatically hypotensive measured by her daughter. She says the sap administrator has told her how much fluid to drink a day but she is not sure that she is able to keep up with this. On her most recent visit to the emergency room her sodium was noted to be 130. Physical exam today is unremarkable Intake Vital Signs 07/15/23 09:07 07/04/24 11:16 09/09/24 11:17 Height 5 ft 7 in 5 ft 7 in 5 ft 7 in Weight: 121 lb BMI 18.9 BP 130/74 H Blood Pressure Location Rt brachial Position Sitting Respiration 16 Pulse 61 Pulse Source Monitor Intake Visit Reasons: 1 y fu Allergies cantaloupe Allergy (Severe, Verified 09/09/24 11:20) Anaphylaxis grass pollen Allergy (Severe, Verified 09/09/24 11:20) Unknown Penicillins Allergy (Severe, Verified 09/09/24 11:20) Anaphylaxis Sulfa (Sulfonamide Antibiotics) Allergy (Unknown, Verified 09/09/24 11:20) Other mold Allergy (Verified 09/09/24 11:20) Unknown pollen extracts Allergy (Verified 09/09/24 11:20) Unknown erythromycin base Adverse Reaction (Severe, Verified 09/09/24 11:20) Unknown lansoprazole (From Prevacid) Adverse Reaction (Severe, Verified 09/09/24 11:20) Nausea/Vom/Diarrhea adhesive tape Adverse Reaction (Intermediate, Verified 09/09/24 11:20) Rash Medications ???Medication ???Instructions ???Recorded ???Confirmed ???Type Bilaterl knee high compression #2 ea 05/29/22 06/07/24 Rx stockings (10-20) calcium carbonate 600 mg PO DAILY 10/14/22 09/09/24 History cholecalciferol (vitamin D3) 10 2,000 unit PO DAILY supplement 10/14/22 09/09/24 History mcg (400 unit) capsule dofetilide 250 mcg capsule See Rx Instructions .Route 10/12/23 09/09/24 Rx .COMPLEX #180 caps cranberry 500 mg capsule 500 mg PO BID 01/18/24 09/09/24 History magnesium oxide 400 mg (241.3 mg 400 mg PO DAILY #90 tabs 01/21/24 09/09/24 Rx magnesium) tablet metoprolol succinate 25 mg 25 mg PO .COMPLEX #135 tabs 01/21/24 09/09/24 Rx tablet,extended release 24 hr ondansetron 4 mg disintegrating 4 mg PO Q8H PRN PRN Nausea #10 tabs 01/23/24 09/09/24 Rx tablet clobetasol 0.05 % topical cream 1 applic topical .COMPLEX #15 grams 03/08/24 09/09/24 Rx ferrous sulfate 325 mg (65 mg 325 mg PO DAILY 03/08/24 09/09/24 History iron) tablet (FeroSul) ascorbate calcium (vitamin C) 500 500 mg PO QDAY 06/07/24 09/09/24 History mg tablet apixaban 5 mg tablet (Eliquis) 5 mg PO BID #60 TABLETS 08/05/24 09/09/24 Rx esomeprazole magnesium 40 mg See Rx Instructions .Route .COMPLEX 09/09/24 09/09/24 History capsule,delayed release midodrine 2.5 mg tablet 2.5 mg PO BID #60 tabs 09/09/24 09/09/24 Rx sodium chloride 1,000 mg soluble 1,000 mg PO DAILY PRN electrolyte 09/09/24 09/09/24 History tablet replenishment Have you fallen in the past year?: No [facility] Medical History Motion sickness Adrenal insufficiency History of atrial flutter Breast pain, right History of breast cancer COVID-19 Chronic diarrhea Osteopenia 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 Lichen sclerosus Atrophic vaginitis TIA (transient ischemic attack) SIADH (syndrome of inappropriate ADH production) Anemia GERD (gastroesophageal reflux disease) Diverticulitis Migraine Osteopenia Nonrheumatic mitral (valve) prolapse Paroxysmal atrial fibrillation Ovarian cyst Compression fracture of L1 lumbar vertebra Paroxysmal atrial flutter Atrial flutter IBS (irritable bowel syndrome) history of blood transfusion 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 [facility] 07-21-2024 [facility] Telephone (INTMWS) GARRETTROSANA Christiano ([id number]) 1940 F NFR Date Time Provider Department 07/21/24 ROCHELLE HACKETT INTWS During your visit today, we recorded the following information about you: Rochelle Hackett MD 07/21/2024 3:37 PM Signed Please let patient know that she has upper respiratory resistance syndrome It is a little different from sleep apnea but similar in many ways and it is disturbing her sleep I would like her to see a sleep medicine doctor. RegardsRochelle MD, Mary, LPN 07/28/2024 8:47 AM Signed Sleep medicine order, TAYLOR, Facesheet, faxed to [facility] sleep center per patient request. Teri Araiza LPN July 28, 2024 8:47 AM Allergies As of Date: 07/21/2024 Noted Allergy Reaction ADHESIVE TAPE (ROSINS) 11/11/2013 2 - Rash CANTALOUPE 08/12/2005 ERYTHROMYCIN 08/12/2005 8 - GI Upset GEMTESA (VIBEGRON) 07/09/2023 6 - Diarrhea GRASS POLLEN 08/13/2005 MOLD 08/13/2005 PENICILLINS 08/12/2005 2 - Rash 7 - Swelling POLLEN 08/13/2005 PREVACID (LANSOPRAZOLE) 05/02/2014 6 - Diarrhea Comments: All PPIs tried have given her diarrhea. SULFA (SULFONAMIDE ANTIBIOTICS) 08/12/2005 Comments: Pt uncertain if Sulfa allergy is accurate or not. Date Reviewed: 06/28/2024 Reviewed by: Devi Shaver MA - Fully Assessed Primary Visit Diagnosis:Sleep apnea, unspecified type [G47.30] Order(s):CONSULT TO SLEEP MEDICINE - ADULT [[id number]] Order #: [id number]: 1 FUTURE Prescriptions as of 07/28/2024 - zoledronic acid (ZOMETA INTRAVENOUS) Inject intravenously. Every 6 months - esomeprazole (NEXIUM) 40 mg capsule Take 1 capsule by mouth daily before breakfast. 1/2 hr before meal. - famotidine (PEPCID) 20 mg tablet take 1 tablet by mouth at bedtime if needed - BENEFIBER, GUAR GUM, ORAL Take 2 teaspoonsful by mouth two times a day as needed. - meclizine (ANTIVERT) 25 mg tab Take 1 tablet by mouth every 6 hours as needed (dizziness). - fludrocortisone (FLORINEF) 0.1 mg tablet Taking 3 times a week - Magnesium Glycinate 120mg 3 at night Stress, blood sugar, thyroid/hormones/adrenals/s leep/energy/toxins/muscles/ constipation/asthma Work up to 3 capsules with meals at night - can cause loose stools - metoprolol succinate ER (TOPROL XL) 25 mg 24 hr tablet Take half tablet in the morning and 1 tablet in the evening. - APIXABAN (ELIQUIS ORAL) Take by mouth [...] once daily. Problem List As Of Date 07/21/2024 Noted Resolved Irritable Bowel Syndrome [K58.9] OSTEOPENIA [M89.9, M94.9] 07/04/2009 Esophageal reflux [K21.9] Other forms of migraine [346.8] 05/04/2007 Unspecified constipation [K59.00] Asymptomatic Postmenopausal Status (Age-Related* 10/28/2012 Osteoarth NOS-L/Leg [STO0231] Palpitations [R00.2] 02/23/2009 Osteoporosis [M81.0] 07/04/2009 03/13/2012 Insomnia [G47.00] 02/11/2011 Hyponatremia [E87.1] 02/11/2011 Chronic fatigue disorder [G93.32] 02/11/2011 Paroxysmal atrial fibrillation (HCC) [I48.0] Mitral valve prolapse [I34.1] Closed fracture of lumbar vertebra (HCC) [S32.0*10/18/2012 Dizziness and giddiness [R42] 03/08/2013 Pain in joint, lower leg [M25.569] 04/27/2014 Right-sided low back pain with right-sided scia*07/24/2015 Neck pain [M54.2] 08/16/2015 Major depressive disorder, recurrent, in partia*12/20/2015 Osteopenia [M85.80] 12/20/2015 Chronic right shoulder pain [M25.511, G89.29] 11/11/2016 Anxiety and depression [F41.9, F32.A] 02/05/2017 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 (syndrome of inappropriate ADH production*03/09/2018 Chronic pain of right knee [M25.561, G89.29] 10/06/2018 Hospital discharge follow-up [Z09] 11/18/2019 11/12/2022 Mild cognitive disorder [F09] 11/27/2020 Protein-calorie malnutrition, unspecified sever*01/14/2023 Encounter Status:Closed by TERI ARAIZA on 07/28/24 [facility] ([facility]G)/HOME SLE EP APNEA TEST (HSAT)on 07-13-2024 POLYSOMNOGRAM (PSG)/HOME SLEEP APNEA TEST (HSAT) [facility] [place] ??? [address] [id number] ; PSG Study Report Name: ROSANA MAKI Date of Study: 07/13/2024 F#: [id number] Age: 84 (: 1940) ESS: 09/06 Neck Circ. (cm): 30.0 Height (cm): 170.2 Weight (kg): 53.6 BMI: 18.5 Referring Provider: ROCHELLE HACKETT Mailcode: [id number] Sleep history: The patient is a 84 year old female with a history of snoring, waking up choking, gasping, or snorting, waking up with dry mouth or sore throat, excessive daytime sleepiness, fatigue, daytime napping, feeling paralyzed while falling asleep or waking up, nightmares, and dreams of being chased. The patient is being evaluated for obstructive sleep apnea.The patient endorses being a habitual prone sleeper. Pertinent past medical history: Allergic rhinitis, Anxiety, Atrial fibrillation, Depression, GERD, Insomnia, Migraine headaches, Breast cancer Medications: Eliquis, Tikosyn, Nexium, Pepcid, Florinef Sleep procedure: PSG 4 or more [facility] ([id number]) Procedure: The study was attended continuously by a engineering technologist. The monitored parameters included: left (E1-M2) and right (E2-M1) EOG, frontal (F3-M2 and F4-M1), central (C3-M2 and C4-M1) and occipital (O1-M2 and O2-M1) EEG, mental and submental EMG, left and right anterior tibialis, single ECG waveform, snoring, continuous airflow with thermistor, nasal pressure transducer, chest and abdominal effort, oxygen saturation, ETCO2, and body position via video monitoring. Hypopnea definition: The peak signal excursions drop by >= 30% of pre-event baseline using nasal pressure (diagnostic study), PAP device flow (titration study) or an alternative hypopnea sensor (diagnostic study). The duration of the >= 30% drop in signal excursion is >= 10 seconds. There is a greater than or equal to 4% oxygen desaturation from pre-event baseline. Respiratory Effort Related Arousal (RERA) definition: 10 seconds characterized by increasing respiratory effort or by flattening of the nasal pressure or PAP flow waveform leading to arousal from sleep when the sequence of breaths does not meet criteria for an apnea or hypopnea. Respiratory Disturbance Index (RDI) definition: RDI = (#apneas + #hypopneas + #RERAs) x 60 / TST. If AHI is 0.0, then RDI = RERA index. SLEEP ARCHITECTURE: The study started at 22:22:36 and ended at 04:51:26. Total sleep time (TST) was 203 minutes resulting in a sleep efficiency of 52.2% (total recording time (TRT) = 389 m). There were 35 awakenings with a total time awake after sleep onset of 165.0 minutes. The sleep latency was 21.0 minutes and the REM latency was 259 minutes. The patient spent 65.3% of sleep time in the supine position. The sleep stage percentages were 16.3% stage N1, 80.8% stage N2, 0.0% stage N3 and 3.0% REM sleep. There were 100 arousals, resulting in an arousal index of 29.6. There were 108 stage shifts. RESPIRATORY DATA: Snoring was noted. There were 39 respiratory events consisting of 0 apneas, 1 hypopneas and 38 RERAs. The apnea-hypopnea index (AHI) was 0.3 and the central-apnea index (MINERVA) was 0.0. The respiratory effort related arousal (RERA) index was 11.2. The respiratory disturbance index (RDI) was 11.5. The mean oxygen saturation during the study was 97.0%, with a minimum oxygen saturation of 93.0%. The wake supine end-tidal CO2 (ETCO2) value was ~34 mmHg. The maximum ETCO2 was 42 mmHg. Rubio-Gleason/Periodic Breathing was not present. Supplemental oxygen was not administered. REM-Time REM AHI NREM-Time NREM AHI Total-Time Total RDI Total AHI Supine 0.0 m -- 132.5 m 0.5 132.5 m 14.9 0.5 Off-Supine 6.0 m 0.0 64.5 m 0.0 70.5 m 5.1 0.0 Total 6.0 m 0.0 197.0 m 0.3 203.0 m 11.5 0.3 MOVEMENT DATA: No abnormal behavior was noted. There were 7 periodic limb movements during sleep, resulting in a PLM-index of 2.1. Of these, 5 movements were associated with arousals, resulting in a PLM-arousal index of 1.5. ECG DATA: The average heart rate during sleep was 70 beats per minute, with a range of 65 to 79. During wake, the heart rate ranged from 65 to 89 beats per minute. The following arrhythmias were observed:Atrial fibrillation, Premature ventricular contractions OTHER NOTABLE FINDINGS: None. 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 Upper airway resistance syndrome (UARS) is a subtype of obstructive sleep apnea (MIRANDA). Although the overall apnea-hypopnea index (AHI) was in the normal range, the respiratory disturbance index (RDI) was in the mild range, indicating potential clinical significance. Severity of the sleep-related breathing disorder may be underestimated due to limited recorded REM and supine sleep, and to the presence of mild flow and effort decrements associated with arousal and/or oxygen desaturation not meeting established CMS respiratory event criteria. Respiratory (more content not included)... Normal [facility] Neurology Visit Reporton Neurology Visit Report [facility] [address], [address] [place] [address] OFFICE VISIT Date of Service: 07/04/24 MR#: [id number] Acct: [id number] Name: ROSANA MAKI Rep #: [id number] : 1940 Provider: Dr. Erick seymour MD Age/Sex: 84/F Location: [facility]. Status: Signed HPI [facility] Chief Complaint: Details: Interim History: Rosana returns for follow-up visit. She has a history of SIADH, ductal carcinoma of the left breast (s/p breast surgery in 2017; she did not require chemotherapy or radiation), anemia, paroxysmal atrial fibrillation, mitral valve prolapse and osteopenia. She was hospitalized in November 2019 for dizziness and confusion. She had a negative work-up for acute CVA; her MRI showed moderate chronic small vessel ischemic disease. She has chronic hyponatremia, first identified around the year 1999 and was diagnosed with SIADH. Her sodium level is often in the high 120s to low 130's (she has had a serum sodium level as low as 121). Her last sodium level (June 2024) was 130. She has frequently experienced gait imbalance, nausea, lightheadedness, generalized weakness and fatigue. She has had physical therapy for gait imbalance and this was of slight benefit. Aquatic therapy was also of benefit. Continuing aquatic therapy on her own worsened her dizziness. Physical therapy earlier in 2023 was of benefit for her energy level and gait. She has also experienced some dizziness; this is decreased in frequency. She previously used meclizine 25 mg and this was of benefit for her dizziness however the medication was sedating. She has not used meclizine recently. She no longer takes promethazine due to concern that it may cause QTc prolongation. 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 She has reduced her fluid intake and has used electrolyte powder and soup containing high salt content. She takes a sodium 1 g tablet almost once daily. She has liberally salted her food. She has used urea powder and reported improvement of her imbalance with use of this. She takes fludrocortisone 0.1mg 1/2 tablet every Thursday, Thursday and Thursday (previously she took fludrocortisone 0.1 mg 1/2 tablet every Thursday and Thursday and 1 tablet every Thursday; she had had elevations of her blood pressure when she took fludrocortisone 0.1 mg 3 times weekly) and she has had modest subsequent reduction in the swelling at the ankles. She uses compression stockings infrequently. Due to concern about possible side effects, she decided not to begin midodrine. She reported having vague numbness in the feet that has been present since at least 2020 and feels that this is contributing to her gait imbalance. She denied having low back pain. 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 Laboratory studies reveal a B12 level near the low end of the normal range and an abnormal serum free light chains. She has had some memory difficulty since 2019. She decided not to take memantine due to concern about side effects (such as dizziness). She has noted word finding difficulty and she at times loses her train of thought. She had felt that her mental processing had slowed. She remains independent in her daily activities. In 2012, she sustained a concussion in a fall down a flight of stairs. She previously exhibited orthostatic blood pressure changes. B12 1500 mcg injections (for fatigue) and ondansetron (for nausea) were not of benefit. She has had fluctuating fatigue since she had an episode of mononucleosis in the . She has a history of chronic right knee pain for which she has had right knee injections in 2020, 2021 and 2022. She had a COVID-19 upper respiratory tract infection in August 2022. Mini-Mental status exam score was 28/30 on 12/18/2020. She had a urinary tract infection earlier in 2023. In November 2023 she had two 45-second episodes of aphasia without other associated symptoms. She had a head CT at the [facility] and [place]; results are presently not available and she is unaware of a verbal report of results. She takes Eliquis. She has been prescribed Zometa for osteoporosis. Her last bone density test (earlier in 2023) revealed osteopenia. Physical Exam: Neuro: The patient is awake and alert and responds appropriately; speech is fluent Mini-Mental status exam score is 30/30; motor strength is 5/5 in the quadriceps bilaterally and foot dorsiflexors bilaterally; gait is mildly slow Heart: Regular rate and rhythm Neck: No bruits Supplemental Info Chest CTA (07/13/2019): No evidence for pulmonary embolism. Scarring as described. Complete collapse of the L1 vertebrae. CXR (09/29/2019): No acute findings. EKG (11/12/2019): Normal sinus rhythm Incomplete right bundle branch block Borderline ECG Brain CT (11/12/2019): 1. Chronic (more content not included)... Normal [facility] CNOVon 06-28-2024 CNOV Office Visit (PODIWS ) ROSANA MAKI ([id number]) 1940 F NFR Date Time Provider Department 06/28/24 8:45 AM VILLA HARVEYCECILIO JOSHI During your visit today, we recorded the following information about you: Villa Harveyew 06/28/2024 9:11 AM Signed FOLLOW UP PODIATRIC OFFICE VISIT Chief Complaint: This 84 year old who presents for follow up:right hallux medial nail border matrixectomy Patient presents to clinic for follow-up right hallux medial nail border matrixectomy Patient is doing very well. Patient still has some pain but overall, doing well. Has been more active with travel. Seems to be doing ok. PAIN EVALUATION No data found in the last 1 encounters. No results found for: HBA1C PCP: Rochelle Hackett MD PAST MEDICAL HISTORY Diagnosis Date [...] D deficiency Current Outpatient Medications Medication Sig zoledronic acid (ZOMETA INTRAVENOUS) Inject intravenously. Every 6 months esomeprazole (NEXIUM) 40 mg capsule Take 1 capsule by mouth daily before breakfast. 1/2 hr before meal. famotidine (PEPCID) 20 mg tablet take 1 [...] 120mg 3 at night Stress, blood sugar, thyroid/hormones/adrenals/s leep/energy/toxins/muscles/ constipation/asthma Work up to 3 capsules with meals at night - can cause loose stools metoprolol succinate ER (TOPROL XL) 25 mg 24 hr tablet Take half tablet in the morning and 1 tablet in the evening. APIXABAN (ELIQUIS ORAL) Take by mouth twice [...] W/COLLJ SPEC BR/WA IF PFRMD 07/23/2004 Sigmoidoscopy Physical Exam: O (more content not included)... Normal [facility] 12 Lead EKGon 06-25-2024 12 Lead EKG [facility] Cardiovascular Services [address] [place] [address] 12 Lead EKG 06/25/24 1404 MR#: [id number] Acct: [id number] Name: ROSANA MAKI Rep #: [id number] : 1940 84 From: Colt Erickson MD Attending Dr: Status: DEP ER Ordering Dr: Girish Jay DO Date: 06/25/24 Location: ED Sex: F C Admitted: Test Reason : WEAKNESS Blood Pressure : / mmHG Vent. Rate : 063 BPM Atrial Rate : 063 BPM P-R Int : 248 ms QRS Dur : 108 ms QT Int : 450 ms P-R-T Axes : 087 013 055 degrees QTc Int : 460 ms Sinus rhythm with 1st degree A-V block Incomplete right bundle branch block Borderline ECG Confirmed by Colt Erickson ([id number]), editor in chief PASTOR FREED ([id number]) on 06/27/2024 9:33:47 AM Referred By: Confirmed By:Colt Erickson 06/27/24 0933 Date Colt Erickson MD CC: Dr. Rochelle Hackett MD; Dr. Girish Jay DO Signed Normal [facility] CBC W/Diff, Automatedon 06-14 Absolute Lymph 1.41 X10 3/uL Normal 0.83-4.51 [facility] Comment on above: Performed By: #### L 100.0100 #### [facility] [address] [place], [address] Absolute Neut 2.9 X10 3/uL Normal 2.0-7.7 [facility] Comment on above: Performed By: #### L 100.0100 #### [facility] [address] [place], [address] Basophils/100 WBC (Bld) 0.4 % Normal 0-1 [facility] Comment on above: Performed By: #### L 100.0100 #### [facility] [address] [place], [address] Eosinophils/100 WBC (Bld) 3.4 % Normal 0-5 [facility] Comment on above: Performed By: #### L 100.0100 #### [facility] [address] [place], [address] Erythrocyte distribution width (RBC) [Ratio] 14.8 % High 11.6-14.6 [facility] Comment on above: Performed By: #### L 100.0100 #### [facility] [address] [place], [address] Hematocrit (Bld) [Volume fraction] 33.8 % Low 37-47 [facility] Comment on above: Performed By: #### L 100.0100 #### [facility] [address] [place], [address] Hemoglobin (Bld) [Mass/Vol] 11.0 g/dL Low 12.0-15.0 [facility] Comment on above: Performed By: #### L 100.0100 #### [facility] [address] [place], [address] IG% 0.000 Normal 0.0-0.9 [facility] Comment on above: Result Comment: IG% - Immature Granulocytes (promyelocytes, myelocytes and metamyelocytes) > 1% indicates that a LEFT SHIFT is Present. Performed By: #### L 100.0100 #### [facility] [address] [place], [address] Lymphocytes/100 WBC (Bld) 27.9 % Normal 19-41 [facility] Comment on above: Performed By: #### L 100.0100 #### [facility] [address] [place], [address] MCH (RBC) [Entitic mass] 30.9 pg Normal 27.0-32.0 [facility] Comment on above: Performed By: #### L 100.0100 #### [facility] [address] [place], [address] MCHC (RBC) [Mass/Vol] 32.5 g/dL Normal 32-36 [facility] Comment on above: Performed By: #### L 100.0100 #### [facility] [address] [place], [address] MCV (RBC) [Entitic vol] 94.9 fL Normal 81-99 [facility] Comment on above: Performed By: #### L 100.0100 #### [facility] [address] [place], [address] Monocytes/100 WBC (Bld) 11.3 % High 0-10 [facility] Comment on above: Performed By: #### L 100.0100 #### [facility] [address] [place], [address] Neutrophils/100 WBC (Bld) 57.0 % Normal 47-70 [facility] Comment on above: Performed By: #### L 100.0100 #### [facility] [address] [place], [address] Nucleated RBC (Bld) [#/Vol] 0 10*3/uL Normal 0-5 [facility] Comment on above: Performed By: #### L 100.0100 #### [facility] [address] [place], [address] Platelet mean volume (Bld) [Entitic vol] 9.2 fL Normal 6.2-12.0 [facility] Comment on above: Performed By: #### L 100.0100 #### [facility] [address] [place], [address] Platelets (Bld) [#/Vol] 220 10*3/uL Normal 150-450 [facility] Comment on above: Performed By: #### L 100.0100 #### [facility] [address] [place], [address] RBC (Bld) [#/Vol] 3.56 10*6/uL Low 4.2-5.4 [facility] Comment on above: Performed By: #### L 100.0100 #### [facility] [address] [place], [address] RDW SD 52.4 fl High 35.1-43.9 [facility] Comment on above: Performed By: #### L 100.0100 #### [facility] [address] [place], [address] WBC (Bld) [#/Vol] 5.1 10*3/uL Normal 4.4-11.0 [facility] Comment on above: Performed By: #### L 100.0100 #### [facility] [address] [place], [address] Chest 1 View (Portable)on Chest 1 View (Portable) [facility] Imaging Services [address] [place] [address] Chest 1 View (Portable) MR#: [id number] Acct: [id number] Name: ROSANA MAKINICOLAS Rep #: [id number] : 1940 F 84 From: Max Madison MD PCP: Dr. Rochelle Hackett MD Status: REG ER Study: Chest 1 View (Portable) Date of Exam: 06/25/24 Exam# [id number] Ordering Dr: Girish Jay DO [id number] EXAM: XR CHEST, 1 VIEW CLINICAL INDICATION: cough TECHNIQUE: Frontal view of the chest. COMPARISON: XR Chest dated 12/08/2023 FINDINGS: LUNGS AND PLEURAL SPACES: Lungs are clear but hyperinflated suggesting COPD. HEART: Normal heart size. MEDIASTINUM: No mediastinal or hilar mass. BONES/JOINTS: Mild reverse S scoliosis of the thoracolumbar spine. RAD/Chest 1 View (Portable) IMPRESSION: No acute cardiopulmonary abnormality. COPD. Electronically Signed: Max Madison MD at 14:36 EDT , CC: Dr. Rochelle Hackett MD; Dr. Girish Jay DO Farm Management Agent: Signed Normal [facility] Comprehensive Metabolic Prof ilon 06-25-2024 Albumin [Mass/Vol] 2.8 g/dL Low 3.2-5.0 [facility] Comment on above: Performed By: #### L 500.4050 #### [facility] [address] [place], [place], [address] Albumin/Globulin [Mass ratio] 0.9 {ratio} Normal 0.9-2.4 [facility] Comment on above: Performed By: #### L 500.4050 #### [facility] [address] [place], [address] ALK P 69 U/L Normal 45-117 [facility] Comment on above: Performed By: #### L 500.4050 #### [facility] [address] [place], [address] ALT [Catalytic activity/Vol] 22 U/L Normal 13-56 [facility] Comment on above: Performed By: #### L 500.4050 #### [facility] [address] [place], [address] AST [Catalytic activity/Vol] 19 U/L Normal 15-37 [facility] Comment on above: Performed By: #### L 500.4050 #### [facility] [address] [place], [address] Bilirubin [Mass/Vol] 0.50 mg/dL Normal 0.20-1.00 [facility] Comment on above: Result Comment: For patients on eltrombopag therapy, use of Dimension Ethan TBIL is not recommended. Performed By: #### L 500.4050 #### [facility] [address] [place], [address] BUN/CRE 24.1 RATIO High 10-20 [facility] Comment on above: Performed By: #### L 500.4050 #### [facility] [address] [place], [address] CA,Total 8.6 mg/dL Normal 8.5-10.1 [facility] Comment on above: Performed By: #### L 500.4050 #### [facility] [address] [place], [address] Chloride [Moles/Vol] 98 mmol/L Normal 98-107 [facility] Comment on above: Performed By: #### L 500.4050 #### [facility] [address] [place], [address] CO2 [Moles/Vol] 27.0 mmol/L Normal 21.0-32.0 [facility] Comment on above: Performed By: #### L 500.4050 #### [facility] [address] [place], [address] Creatinine [Mass/Vol] 0.79 mg/dL Normal 0.55-1.02 [facility] Comment on above: Result Comment: The validity of the calculated GFR GFRAA in patients over 70 years has not been determined. Clinical correlation is essential. Performed By: #### L 500.4050 #### [facility] [address] [place], [address] EST GFR - AA 90 mL/min Normal >60 [facility] Comment on above: Result Comment: Afri can Somali GFR Calc Performed By: #### L 500.4050 #### [facility] [address] [place], [address] GAP 5 Normal 5-15 [facility] Comment on above: Performed By: #### L 500.4050 #### [facility] [address] [place], [address] GFR/1.73 sq M.predicted among non-blacks MDRD (S/P/Bld) [Vol rate/Area] 74 mL/min/{1.73_m2} Normal >60 [facility] Comment on above: Result Comment: Non- GFR Calc Performed By: #### L 500.4050 #### [facility] [address] [place], [address] Globulin (S) [Mass/Vol] 3.1 g/dL Normal 2.2-4.2 [facility] Comment on above: Performed By: #### L 500.4050 #### [facility] [address] [place], [address] Glucose [Mass/Vol] 93 mg/dL Normal 74-106 [facility] Comment on above: Performed By: #### L 500.4050 #### [facility] [address] [place], [address] Potassium [Moles/Vol] 4.0 mmol/L Normal 3.5-5.1 [facility] Comment on above: Performed By: #### L 500.4050 #### [facility] [address] [place], [address] Sodium [Moles/Vol] 130 mmol/L Low 136-145 [facility] Comment on above: Performed By: #### L 500.4050 #### [facility] [address] [place], [address] T PROT 5.9 g/dL Low 6.4-8.2 [facility] Comment on above: Performed By: #### L 500.4050 #### [facility] [address] [place], [place], [address] Urea nitrogen [Mass/Vol] 19 mg/dL High 7-18 [facility] Comment on above: Performed By: #### L 500.4050 #### [facility] [address] [place], [address] Emergency Department Summary on 06-25-2024 Emergency Department Summary [facility] Medical Records Department [address] [place] [address] Emergency Department Summary 06/25/24 MR#: [id number] Acct: [id number] Name: ROSANA MAKI Rep #: [id number] : 1940 84 From: Girish Jay DO PCP: Dr. Rochelle Hackett MD Status:DEP ER Location: ED HPI History of Present Illness Chief Complaint: Weakness Narrative Narrative: Patient is a 84-year-old female with past medical history of adrenal insufficiency, TIA, SIADH, GERD, IBS who presented to the emerged part with a chief complaint of generalized weakness. States that earlier today she felt like her shoulders were weak which went away and got better and then she felt like her lower extremities were weak she states that she did not fall. States that she has been doing a lot of travel recently and seems that she is extremely tired from all the traveling. She states that they traveled for the past 2 weeks. Patient notes that she is on Eliquis and has not missed any doses of this. Patient overall states she is just tired PFSH [facility] Medical History Motion sickness Adrenal insufficiency History of atrial flutter Breast pain, right History of breast cancer COVID-19 Chronic diarrhea Osteopenia 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 Lichen sclerosus Atrophic vaginitis TIA (transient ischemic attack) SIADH (syndrome of inappropriate ADH production) Anemia GERD (gastroesophageal reflux disease) Diverticulitis Migraine Osteopenia Nonrheumatic mitral (valve) prolapse Paroxysmal atrial fibrillation Ovarian cyst Compression fracture of L1 lumbar vertebra Paroxysmal atrial flutter Atrial flutter IBS (irritable bowel syndrome) history of blood transfusion 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) Chronic hyponatremia Home Medications ???Medication ???Instructions ???Recorded ???Last Taken ???Type Bilaterl knee high compression #2 ea 05/29/22 Unknown Rx stockings (-) calcium carbonate 600 mg PO DAILY 10/14/22 Unknown History cholecalciferol (vitamin D3) 10 2,000 unit PO DAILY supplement 10/14/22 Unknown History mcg (400 unit) capsule esomeprazole magnesium 40 mg See Rx Instructions .Route 12/18/22 Unknown Rx capsule,delayed release .COMPLEX #90 caps apixaban 5 mg tablet 5 mg PO BID #60 tabs 07/23/23 Unknown Rx fludrocortisone 0.1 mg tablet 0.05 mg (1/2 x 0.1 mg) .Route 09/22/23 Unknown Rx .COMPLEX #8 tabs dofetilide 250 mcg capsule See Rx Instructions .Route 10/12/23 Unknown Rx .COMPLEX #180 caps cranberry 500 mg capsule 500 mg PO BID 01/18/24 Unknown History magnesium oxide 400 mg (241.3 mg 400 mg PO DAILY #90 tabs 01/21/24 Unknown Rx magnesium) tablet metoprolol succinate 25 mg 25 mg PO .COMPLEX #135 tabs 01/21/24 Unknown Rx tablet,extended release 24 hr ondansetron 4 mg disintegrating 4 mg PO Q8H PRN PRN Nausea #10 tabs 01/23/24 Unknown Rx tablet sodium chloride 1,000 mg soluble 1,000 mg PO DAILY electrolyte 03/03/24 Unknown Rx tablet replenishment #30 tabs clobetasol 0.05 % topical cream 1 applic topical .COMPLEX #15 grams 03/08/24 Unknown Rx ferrous sulfate 325 mg (65 mg 325 mg PO DAILY 03/08/24 Unknown History iron) tablet (FeroSul) ascorbate calcium (vitamin C) 500 500 mg PO QDAY 06/07/24 Unknown History mg tablet Allergy/AdvReac Type Severity Reaction Status Date / Time cantaloupe Allergy Severe Anaphylaxis Verified 06/25/24 13:06 grass pollen Allergy Severe Unknown Verified 06/25/24 13:06 Penicillins Allergy Severe Anaphylaxis Verified 06/25/24 13:06 Sulfa (Sulfonamide Allergy Unknown Other Verified 06/25/24 13:06 Antibiotics) mold Allergy Unknown Verified 06/25/24 13:06 pollen extracts Allergy Unknown Verified 06/25/24 13:06 erythromycin base AdvReac Severe Unknown Verified 06/25/24 13:06 lansoprazole (From Prevacid) AdvReac Severe Nausea/Vom/ Verified 06/25/24 13:06 Diarrhea adhesive tape AdvReac Intermediate Rash Verified 06/25/24 13:06 Family History Father Unknown family medical history Mother Uterine cancer Thyroid disorder Kidney disease Hypertension CHF (congestive heart failure) Arthritis Surgical History History of cataract surgery History of colonoscopy (05/2019) History of esophagogastroduodenoscopy (EGD) (05/2019) History of left heart catheterization (09/2012) H/O left mastectomy History of radiofrequency ablation (RFA) procedure for cardiac arrhythmia (08/2013) History of removal of ovarian cyst H/O lymph node biopsy H/O breast biopsy History of dilation and curettage Social History household members: spouse Smoking Status: (more content not included)... Normal [facility] Urinalysis, Completeon 06-25 RBC 0-5 SEEN Normal 0-5 [facility] Comment on above: Order Comment: CLEAN CATCH Performed By: #### L [id number] #### [facility] [address] [place], [place], [id number] WBC 5-10 SEEN Normal 0-5 [facility] Comment on above: Order Comment: CLEAN CATCH Performed By: #### L [id number] #### [facility] [address] [place], [address] BACTERIA 0 SEEN Normal None Seen [facility] Comment on above: Order Comment: CLEAN CATCH Performed By: #### L [id number] #### [facility] [address] [place], [address] EPI,SQUAMOUS 0 SEEN Normal 5-10 [facility] Comment on above: Order Comment: CLEAN CATCH Performed By: #### L [id number] #### [facility] [address] [place], [address] Mucus Ql (Urine sed) 0 SEEN Normal [facility] Comment on above: Order Comment: CLEAN CATCH Performed By: #### L [id number] #### [facility] [address] [place], [place], [address] Absolute neutrophil countOrd ered By: Larissa Nguyễn on 06-07-2024 Neutrophils (Bld) [#/Vol] 2.3 10*3/uL 2.0-7.7 [facility] Alanine aminotransferase (AL T) assayOrdered By: Larissa Nguyễn on 06-07-2024 ALT [Catalytic activity/Vol] 25 U/L 13-56 [facility] Albumin to globulin ratioOrd ered By: Larissa Nguyễn on 06-07-2024 Albumin/Globulin [Mass ratio] 0.9 {ratio} 0.9-2.4 [facility] Alkaline phosphataseOrdered By: Larsisa Nguyễn on 06-07-2024 ALP [Catalytic activity/Vol] 88 U/L 45-117 [facility] Basophil percentageOrdered B y: Larissa Nguyễn on 06-07-2024 Basophils/100 WBC (Bld) 1.0 % 0-1 [facility] Bilirubin, totalOrdered By: Larissa Nguyễn on 06-07-2024 Bilirubin [Mass/Vol] 0.50 mg/dL 0.20-1.00 [facility] Comment on above: For patients on eltr ombopag therapy, use of Dimension Ethan TBIL is not recommended. CBC W/Diff, Automatedon 09-2 Absolute Lymph 1.92 X10 3/uL Normal 0.83-4.51 [facility] Comment on above: Performed By: #### L [id number], L100.0100 #### [facility] [address] [place], [address] Absolute Neut 2.3 X10 3/uL Normal 2.0-7.7 [facility] Comment on above: Performed By: #### L [id number], L100.0100 #### [facility] [address] [place], [address] Basophils/100 WBC (Bld) 1.0 % Normal 0-1 [facility] Comment on above: Performed By: #### L [id number], L100.0100 #### [facility] [address] [place], [address] Eosinophils/100 WBC (Bld) 2.2 % Normal 0-5 [facility] Comment on above: Performed By: #### L [id number], L100.0100 #### [facility] [address] [place], [address] Erythrocyte distribution width (RBC) [Ratio] 15.5 % High 11.6-14.6 [facility] Comment on above: Performed By: #### L [id number], L100.0100 #### [facility] [address] [place], [address] Hematocrit (Bld) [Volume fraction] 34.1 % Low 37-47 [facility] Comment on above: Performed By: #### L [id number], L100.0100 #### [facility] [address] [place], [address] Hemoglobin (Bld) [Mass/Vol] 11.5 g/dL Low 12.0-15.0 [facility] Comment on above: Performed By: #### L 500.4050, L100.0100 #### [facility] [address] [place], [address] IG% 0.000 Normal 0.0-0.9 [facility] Comment on above: Result Comment: IG% - Immature Granulocytes (promyelocytes, myelocytes and metamyelocytes) > 1% indicates that a LEFT SHIFT is Present. Performed By: #### L 500.4050, L100.0100 #### [facility] [address] [place], [address] Lymphocytes/100 WBC (Bld) 39.3 % Normal 19-41 [facility] Comment on above: Performed By: #### L [id number], L100.0100 #### [facility] [address] [place], [address] MCH (RBC) [Entitic mass] 31.4 pg Normal 27.0-32.0 [facility] Comment on above: Performed By: #### L [id number], L100.0100 #### [facility] [address] [place], [address] MCHC (RBC) [Mass/Vol] 33.7 g/dL Normal 32-36 [facility] Comment on above: Performed By: #### L [id number], L100.0100 #### [facility] [address] [place], [address] MCV (RBC) [Entitic vol] 93.2 fL Normal 81-99 [facility] Comment on above: Performed By: #### L [id number], L100.0100 #### [facility] [address] [place], [address] Monocytes/100 WBC (Bld) 11.0 % High 0-10 [facility] Comment on above: Performed By: #### L [id number], L100.0100 #### [facility] [address] [place], [address] Neutrophils/100 WBC (Bld) 46.5 % Low 47-70 [facility] Comment on above: Performed By: #### L [id number], L100.0100 #### [facility] [address] [place], [address] Nucleated RBC (Bld) [#/Vol] 0 10*3/uL Normal 0-5 [facility] Comment on above: Performed By: #### L 500.4050, L100.0100 #### [facility] [address] [place], [address] Platelet mean volume (Bld) [Entitic vol] 8.7 fL Normal 6.2-12.0 [facility] Comment on above: Performed By: #### L 500.4050, L100.0100 #### [facility] [address] [place], [address] Platelets (Bld) [#/Vol] 233 10*3/uL Normal 150-450 [facility] Comment on above: Performed By: #### L 500.4050, L100.0100 #### [facility] [address] [place], [address] RBC (Bld) [#/Vol] 3.66 10*6/uL Low 4.2-5.4 [facility] Comment on above: Performed By: #### L 500.4050, L100.0100 #### [facility] [address] [place], [address] RDW SD 53.1 fl High 35.1-43.9 [facility] Comment on above: Performed By: #### L 500.4050, L100.0100 #### [facility] [address] [place], [address] WBC (Bld) [#/Vol] 4.9 10*3/uL Normal 4.4-11.0 [facility] Comment on above: Performed By: #### L 500.4050, L100.0100 #### [facility] [address] [place], [address] Absolute Neut Normal 2.0-7.7 [facility] Comment on above: Result Comment: DUPL ICATED ORDERS Performed By: #### L 500.4050, L100.0100 #### [facility] [address] [place], [address] HCT Normal 37-47 [facility] Comment on above: Result Comment: DUPL ICATED ORDERS Performed By: #### L 500.4050, L100.0100 #### [facility] [address] [place], [address] HGB Normal 12.0-15.0 [facility] Comment on above: Result Comment: DUPL ICATED ORDERS Performed By: #### L 500.4050, L100.0100 #### [facility] [address] [place], [address] MCH Normal 27.0-32.0 [facility] Comment on above: Result Comment: DUPL ICATED ORDERS Performed By: #### L 500.4050, L100.0100 #### [facility] [address] [place], [address] MCHC Normal 32-36 [facility] Comment on above: Result Comment: DUPL ICATED ORDERS Performed By: #### L 500.4050, L100.0100 #### [facility] [address] [place], [address] MCV Normal 81-99 [facility] Comment on above: Result Comment: DUPL ICATED ORDERS Performed By: #### L 500.4050, L100.0100 #### [facility] [address] [place], [address] NEUT% Normal 47-70 [facility] Comment on above: Result Comment: DUPL ICATED ORDERS Performed By: #### L 500.4050, L100.0100 #### [facility] [address] [place], [address] PLT Normal 150-450 [facility] Comment on above: Result Comment: DUPL ICATED ORDERS Performed By: #### L 500.4050, L100.0100 #### [facility] [address] [place], [address] RBC Normal 4.2-5.4 [facility] Comment on above: Result Comment: DUPL ICATED ORDERS Performed By: #### L 500.4050, L100.0100 #### [facility] [address] [place], [address] RDW CV Normal 11.6-14.6 [facility] Comment on above: Result Comment: DUPL ICATED ORDERS Performed By: #### L 500.4050, L100.0100 #### [facility] [address] [place], [address] RDW SD Normal 35.1-43.9 [facility] Comment on above: Result Comment: DUPL ICATED ORDERS Performed By: #### L 500.4050, L100.0100 #### [facility] [address] [place], [address] WBC Normal 4.4-11.0 [facility] Comment on above: Result Comment: DUPL ICATED ORDERS Performed By: #### L 500.4050, L100.0100 #### [facility] [address] [place], [address] Comprehensive Metabolic Prof ilon 06-07-2024 Albumin [Mass/Vol] 3.2 g/dL Normal 3.2-5.0 [facility] Comment on above: Performed By: #### L 500.4050, L100.0100 #### [facility] [address] [place], [address] Albumin/Globulin [Mass ratio] 0.9 {ratio} Normal 0.9-2.4 [facility] Comment on above: Performed By: #### L 500.4050, L100.0100 #### [facility] [address] [place], [address] ALK P 88 U/L Normal 45-117 [facility] Comment on above: Performed By: #### L 500.4050, L100.0100 #### [facility] [address] [place], [address] ALT [Catalytic activity/Vol] 25 U/L Normal 13-56 [facility] Comment on above: Performed By: #### L 500.4050, L100.0100 #### [facility] [address] [place], [address] AST [Catalytic activity/Vol] 26 U/L Normal 15-37 [facility] Comment on above: Performed By: #### L 500.4050, L100.0100 #### [facility] [address] [place], [address] Bilirubin [Mass/Vol] 0.50 mg/dL Normal 0.20-1.00 [facility] Comment on above: Result Comment: For patients on eltrombopag therapy, use of Dimension Ethan TBIL is not recommended. Performed By: #### L 500.4050, L100.0100 #### [facility] [address] [place], [address] BUN/CRE 20.0 RATIO Normal 10-20 [facility] Comment on above: Performed By: #### L 500.4050, L100.0100 #### [facility] [address] [place], [address] CA,Total 8.7 mg/dL Normal 8.5-10.1 [facility] Comment on above: Performed By: #### L 500.4050, L100.0100 #### [facility] [address] [place], [address] Chloride [Moles/Vol] 100 mmol/L Normal 98-107 [facility] Comment on above: Performed By: #### L 500.4050, L100.0100 #### [facility] [address] [place], [address] CO2 [Moles/Vol] 29.0 mmol/L Normal 21.0-32.0 [facility] Comment on above: Performed By: #### L 500.4050, L100.0100 #### [facility] [address] [place], [address] Creatinine [Mass/Vol] 1.00 mg/dL Normal 0.55-1.02 [facility] Comment on above: Result Comment: The validity of the calculated GFR GFRAA in patients over 70 years has not been determined. Clinical correlation is essential. Performed By: #### L 500.4050, L100.0100 #### [facility] [address] [place], [address] ECRCL 37.04 ml/min Normal [facility] Comment on above: Performed By: #### L 500.4050, L100.0100 #### [facility] [address] [place], [address] EST GFR - AA 68 mL/min Normal >60 [facility] Comment on above: Result Comment: Afri can Somali GFR Calc Performed By: #### L 500.4050, L100.0100 #### [facility] [address] [place], [address] GAP 4 Low 5-15 [facility] Comment on above: Performed By: #### L 500.4050, L100.0100 #### [facility] [address] [place], [address] GFR/1.73 sq M.predicted among non-blacks MDRD (S/P/Bld) [Vol rate/Area] 57 mL/min/{1.73_m2} Low >60 [facility] Comment on above: Result Comment: Non- GFR Calc Performed By: #### L 500.4050, L100.0100 #### [facility] [address] [place], [address] Globulin (S) [Mass/Vol] 3.7 g/dL Normal 2.2-4.2 [facility] Comment on above: Performed By: #### L 500.4050, L100.0100 #### [facility] [address] [place], [address] Glucose [Mass/Vol] 106 mg/dL Normal 74-106 [facility] Comment on above: Result Comment: Fast ing Glucose result from 100 to 125 mg/dL suggests IMPAIRED HOMEOSTASIS per A.D.A. criteria. Performed By: #### L 500.4050, L100.0100 #### [facility] [address] [place], [address] Potassium [Moles/Vol] 4.1 mmol/L Normal 3.5-5.1 [facility] Comment on above: Performed By: #### L 500.4050, L100.0100 #### [facility] [address] [place], [address] Sodium [Moles/Vol] 133 mmol/L Low 136-145 [facility] Comment on above: Performed By: #### L 500.4050, L100.0100 #### [facility] [address] [place], [address] T PROT 6.9 g/dL Normal 6.4-8.2 [facility] Comment on above: Performed By: #### L 500.4050, L100.0100 #### [facility] [address] [place], [address] Urea nitrogen [Mass/Vol] 20 mg/dL High 7-18 [facility] Comment on above: Performed By: #### L 500.4050, L100.0100 #### [facility] [address] [place], [address] ALB Normal 3.2-5.0 [facility] Comment on above: Result Comment: DUPL ICATED ORDERS Performed By: #### L 500.4050, L100.0100 #### [facility] [address] [place], [address] ALK P Normal 45-117 [facility] Comment on above: Result Comment: DUPL ICATED ORDERS Performed By: #### L 500.4050, L100.0100 #### [facility] [address] [place], [address] ALT Normal 13-56 [facility] Comment on above: Result Comment: DUPL ICATED ORDERS Performed By: #### L 500.4050, L100.0100 #### [facility] [address] [place], [address] AST Normal 15-37 [facility] Comment on above: Result Comment: DUPL ICATED ORDERS Performed By: #### L 500.4050, L100.0100 #### [facility] [address] [place], [address] BUN Normal 7-18 [facility] Comment on above: Result Comment: DUPL ICATED ORDERS Performed By: #### L 500.4050, L100.0100 #### [facility] [address] [place], [address] BUN/CRE Normal 10-20 [facility] Comment on above: Result Comment: DUPL ICATED ORDERS Performed By: #### L 500.4050, L100.0100 #### [facility] [address] [place], [address] CA,Total Normal 8.5-10.1 [facility] Comment on above: Result Comment: DUPL ICATED ORDERS Performed By: #### L 500.4050, L100.0100 #### [facility] [address] [place], [address] CL Normal 98-107 [facility] Comment on above: Result Comment: DUPL ICATED ORDERS Performed By: #### L 500.4050, L100.0100 #### [facility] [address] [place], [address] CO2 Normal 21.0-32.0 [facility] Comment on above: Result Comment: DUPL ICATED ORDERS Performed By: #### L 500.4050, L100.0100 #### [facility] [address] [place], [address] CREAT,SERUM Normal 0.55-1.02 [facility] Comment on above: Result Comment: DUPL ICATED ORDERS Performed By: #### L 500.4050, L100.0100 #### [facility] [address] [place], [address] EST GFR Normal >60 [facility] Comment on above: Result Comment: DUPL ICATED ORDERS Performed By: #### L 500.4050, L100.0100 #### [facility] [address] [place], [address] EST GFR - AA Normal >60 [facility] Comment on above: Result Comment: DUPL ICATED ORDERS Performed By: #### L 500.4050, L100.0100 #### [facility] [address] [place], [address] GAP Normal 5-15 [facility] Comment on above: Result Comment: DUPL ICATED ORDERS Performed By: #### L 500.4050, L100.0100 #### [facility] [address] [place], [address] GLU Normal 74-106 [facility] Comment on above: Result Comment: DUPL ICATED ORDERS Performed By: #### L 500.4050, L100.0100 #### [facility] [address] [place], [address] Potassium Normal 3.5-5.1 [facility] Comment on above: Result Comment: DUPL ICATED ORDERS Performed By: #### L 500.4050, L100.0100 #### [facility] [address] [place], [address] T BILI Normal 0.20-1.00 [facility] Comment on above: Result Comment: DUPL ICATED ORDERS Performed By: #### L 500.4050, L100.0100 #### [facility] [address] [place], [address] T PROT Normal 6.4-8.2 [facility] Comment on above: Result Comment: DUPL ICATED ORDERS Performed By: #### L 500.4050, L100.0100 #### [facility] [address] [place], [address] Comprehensive Metabolic Profil Normal 136-145 [facility] Comment on above: Result Comment: DUPL ICATED ORDERS Performed By: #### L 500.4050, L100.0100 #### [facility] [address] [place], [address] Eosinophil percentageOrdered By: Larissa Nguyễn on 06-07-2024 Eosinophils/100 WBC (Bld) 2.2 % 0-5 [facility] Erythrocyte distribution wid th (RBC) [Ratio]Ordered By: Larissa Nguyễn on 06-07-2024 Erythrocyte distribution width (RBC) [Entitic vol] 53.1 fL High 35.1-43.9 [facility] Erythrocyte distribution wid th ratioOrdered By: Larissa Nguyễn on 06-07-2024 Erythrocyte distribution width (RBC) [Ratio] 15.5 % High 11.6-14.6 [facility] Hematocrit Auto (Bld) [Volum e fraction]Ordered By: Larissa Nguyễn on 06-07-2024 Hematocrit (Bld) [Volume fraction] 34.1 % Low 37-47 [facility] Hemoglobin measurementOrdere d By: Larissa Nguyễn on 06-07-2024 Hemoglobin (Bld) [Mass/Vol] 11.5 g/dL Low 12.0-15.0 [facility] Immature granulocytes/100 WB C Auto (Bld)Ordered By: Larissa Nguyễn on 06-07-2024 Immature granulocytes/100 WBC (Bld) 0.000 % 0.0-0.9 [facility] Comment on above: IG% - Immature Granu locytes (promyelocytes, myelocytes and metamyelocytes) > 1% indicates that a LEFT SHIFT is Present. Laboratory - Chemistry and C hemistry - challengeOrdered By: Larissa Nguyễn on 06-07-2024 AST [Catalytic activity/Vol] 26 U/L 15-37 [facility] Lymphocytes Auto (Unsp spec) [#/Vol]Ordered By: Larissa Nguyễn on 06-07-2024 Lymphocytes (Bld) [#/Vol] 1.92 10*3/uL 0.83-4.51 [facility] Lymphocytes/100 WBC Auto (Un sp spec)Ordered By: Larissa Nguyễn on 06-07-2024 Lymphocytes/100 WBC (Bld) 39.3 % 19-41 [facility] MCV (mean corpuscular volume ) determinationOrdered By: Larissa Nguyễn on 06-07-2024 MCV (RBC) [Entitic vol] 93.2 fL 81-99 [facility] Mean corpuscular hemoglobin (MCH) determinationOrdered By: Larissa Nguyễn on 06-07-2024 MCH (RBC) [Entitic mass] 31.4 pg 27.0-32.0 [facility] Mean corpuscular hemoglobin concentration (MCHC) determinationOrdered By: Larissa Nguyễn on 06-07-2024 MCHC (RBC) [Mass/Vol] 33.7 g/dL 32-36 [facility] Mean platelet volume determi nationOrdered By: Larissa Nguyễn on 06-07-2024 Platelet mean volume (Bld) [Entitic vol] 8.7 fL 6.2-12.0 [facility] Monocyte percentageOrdered B y: Larissa Nguyễn on 06-07-2024 Monocytes/100 WBC (Bld) 11.0 % High 0-10 [facility] Neutrophil percentageOrdered By: Larissa Nguyễn on 06-07-2024 Neutrophils/100 WBC (Bld) 46.5 % Low 47-70 [facility] Nucleated red blood cell per centageOrdered By: Larissa Nguyễn on 06-07-2024 Nucleated RBC/100 WBC (Bld) [Ratio] 0 % 0-5 [facility] Oncology Visit Reporton 05-16 Oncology Visit Report [facility] [place] [address] OFFICE VISIT Date of Service: 06/07/24 1421 MR#: [id number] Acct: [id number] Name: ROSANA MAKI Rep #: [id number] : 1940 From: Larissa Nguynễ MD Age/Sex: 84/F Location: [facility] Status: Signed HPI Subjective Date of Service 06/07/24 Chief Complaint Breast cancer on treatment History of Present Illness Patient is a 82-year-old postmenopausal female with left breast cancer detected [...] with sentinel lymph node biopsy by Dr. Sheth. 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 Resection margin was negative at 10 mm and no metastatic cancer was detected in 3 dissected sentinel lymph nodes. She has made a non-complicated recovery from her surgery. Oncotype Dx (04/2017) score 5 (Low) She had used HRT for postmenopausal symptoms for approximately 10 years this has stopped several years ago. Treatment summary: 1- April 17, 2017 left mastectomy with sentinel lymph node biopsy 2- Arimidex 2016-2023; 5 years (delay was due to to patient travel overseas). Bone supportive therapy with Prolia/zoledronic acid every 6M June 2018 - [facility] Medical History Motion sickness Adrenal insufficiency History of atrial flutter Breast pain, right History of breast cancer COVID-19 Chronic diarrhea Osteopenia 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 Lichen sclerosus Atrophic vaginitis TIA (transient ischemic attack) SIADH (syndrome of inappropriate ADH production) Anemia GERD (gastroesophageal reflux disease) Diverticulitis Migraine Osteopenia Nonrheumatic mitral (valve) prolapse Paroxysmal atrial fibrillation Ovarian cyst Compression fracture of L1 lumbar vertebra Paroxysmal atrial flutter Atrial flutter IBS (irritable bowel syndrome) history of blood transfusion 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) Chronic hyponatremia Surgical History History of cataract surgery History of colonoscopy (05/2019) History of esophagogastroduodenoscopy (EGD) (05/2019) History of left heart catheterization (09/2012) H/O left mastectomy History of radiofrequency ablation (RFA) procedure for cardiac arrhythmia (08/2013) History of removal of ovarian cyst H/O lymph node biopsy H/O breast biopsy History of dilation and curettage Family History Father Unknown family medical history Mother Uterine cancer Thyroid disorder Kidney disease Hypertension CHF (congestive heart failure) Arthritis Social History household members: spouse Smoking Status: Never smoker alcohol intake: current alcohol intake frequency: holidays/special occasions only substance use type: does not use caffeine: Yes what type of physical activity do you participate in: walking and yoga frequency: 3-4 times per week seatbelt use: always do you feel safe at home: Yes additional social history: -Kylee Patient and are both retired ROS Constitutional Constitutional: Reports systems reviewed and no addt'l complaints, except as documented, fatigue and other Details: Chronic fatigue, able to do ADL at own pace ; Denies fever(s) or weight loss Eyes Eyes: Reports systems reviewed and no addt'l complaints, except as documented; Denies change in vision ENT HEENT: Reports systems reviewed and no addt'l complaints, except as documented; Denies mouth lesions Cardiovascular Cardiovascular: Reports systems reviewed and no addt'l complaints, except as documented; Denies chest pain with activity Respiratory/Chest Respiratory/Chest: Reports systems reviewed and no addt'l complaints, except as documented and dyspnea on exertion; Denies cough or breast mass Gastrointestinal Gastrointestinal: Reports systems reviewed and no addt'l complaints, except as documented and diarrhea; Denies change in bowel habits, hematochezia or melena Genitourinary Genitourinary: Reports systems reviewed and no addt'l complaints, except as documented; Denies dysuria or hematuria Musculoskeletal Musculoskeletal: Reports systems reviewed and no addt'l complaints, except as documented and arthralgias; Denies back pain Integumentary Integumentary: Reports systems reviewed and (more content not included)... Normal [facility] Platelet countOrdered By: Mitchell Nguyễn on 06-07-2024 Platelets (Bld) [#/Vol] 233 10*3/uL 150-450 [facility] RBC Auto (Bld) [#/Vol]Ordere d By: Larissa Nguyễn on 06-07-2024 RBC (Bld) [#/Vol] 3.66 10*6/uL Low 4.2-5.4 [facility] Serum albumin measurementOrd ered By: Larissa Nguyễn on 06-07-2024 Albumin [Mass/Vol] 3.2 g/dL 3.2-5.0 [facility] Serum globulin measurementOr dered By: Larissa Nguyễn on 06-07-2024 Globulin (S) [Mass/Vol] 3.7 g/dL 2.2-4.2 [facility] Total proteinOrdered By: Mik Nguyễn on 06-07-2024 Protein [Mass/Vol] 6.9 g/dL 6.4-8.2 [facility] White blood cell (WBC) count Ordered By: Larissa Nguyễn on 06-07-2024 WBC (Bld) [#/Vol] 4.9 10*3/uL 4.4-11.0 [facility] 06-02-2024 CNOV Office Visit (PODIWS ) ARISROSANA WONG ([id number]) 1940 F NFR Date Time Provider Department 06/02/24 3:15 PM SOL HARVEY PODIWS During your visit today, we recorded the following information about you: Caroline Day LPN 06/05/2024 1:54 PM Signed AMB ROOMING INTAKE FLOWSHEET DATA Pain Pain Level: 3 Pain Location: Toe Description: Pressure, Tenderness Duration Units: Minutes Frequency: Intermittent Intervention/Comfort measure: Reposition Patient presents with: Left Great Toe - Established Patient, Pain, Ingrown Toenail Right Great Toe - Established Patient, Pain, Ingrown Toenail DARREL Mckeon Matthew 06/05/2024 1:54 PM Signed Chief Complaint: This 84 year old female who presents with chief complaint:ingrowing toenail of b/l hallux R>l HPI Patient presents to clinic for evaluation of b/l feet Complains of ingrowing toenail, primarily to the right hallux medial nail border This is a common issue and she states that as the nail grows out, it causes her pain She is here to discuss possible procedure on the right great toe. No pain on left great toe. PAIN EVALUATION 05/29/20249 Pain Level: 3 Pain Location: Toe Description: Pressure;Tenderness Duration Units: Minutes Frequency: Intermittent Intervention/Comfort measure: Reposition No results found for: HBA1C PCP: Rochelle Hackett MD PAST MEDICAL HISTORY Diagnosis Date [...] D deficiency Current Outpatient Medications Medication Sig zoledronic acid (ZOMETA INTRAVENOUS) Inject intravenously. Every 6 months esomeprazole (NEXIUM) 40 mg capsule Take 1 capsule by mouth daily before breakfast. 1/2 hr before meal. famotidine (PEPCID) 20 mg tablet take 1 [...] 120mg 3 at night Stress, blood sugar, thyroid/hormones/adrenals/s leep/energy/toxins/muscles/ constipation/asthma Work up to 3 capsules with meals at night - can cause loose stools metoprolol succinate ER (TOPROL XL) 25 mg 24 hr tablet Take half tablet in the morning and 1 tablet in the evening. APIXABAN (ELIQUIS ORAL) Take by mouth twice [...] COLONOSCOPY FLX DX W/COLLJ SPEC WHEN PFRMD (more content not included)... Normal [facility] Dexa Bone Density Studyon Dexa Bone Density Study [facility] Imaging Services [address] [place] [id number] Dexa Bone Density Study MR#: [id number] Acct: [id number] Name: ROSANA MAKI Rep #: [id number] : 1940 F 84 From: Edenilson montgomery MD PCP: Dr. Rochelle Hackett MD Status: [facility] Study: Dexa Bone Density Study Date of Exam: 05/31/24 Exam# [id number] Ordering Dr: Larissa Nguyễn MD [id number] STUDY: DUAL ENERGY X-RAY ABSORPTIOMETRY / DXA REASON FOR EXAM: Female, 84 years old. OSTEOPENIA TECHNIQUE: Bone Mineral Density (BMD) measurements of lumbar spine and bilateral hips were obtained. COMPARISON: Comparison is made with prior study dated May 14, 2022. FINDINGS: Lumbar Spine (L1-L4): g/cm2 (0.863) / T-score (-2.0) / Z-score (0.9) Findings are suggestive of osteopenia with a moderate fracture risk. Left Femur Total: g/cm2 (0.730) / T-score (-1.7) / Z-score (0.5) Left Femoral Neck: g/cm2 (0.603) / T-score (-2.2) / Z-score (0.2) Right Femur Total: g/cm2 (0.671) / T-score (-2.2) / Z-score (0.0) Right Femoral Neck: g/cm2 (0.621) / T-score (-2.1) / Z-score (0.4) The T-Scores on the most recent prior examination were: Lumbar Spine (L1-L4): There has been worsening of bone density since the previous examination. Left Femur Total: which represents a worsening of 4.5%. Right Femur Total: which represents a worsening of 6.2%. BD/Dexa Bone Density Study IMPRESSION: The patient is considered osteopenic as outlined below according to World [place] Organization (WHO) criteria with a high fracture risk. There has been worsening of bone density since the previous examination. Reference Information: The T-score is the number of standard deviations above or below the standard which is normal for young adults at their peak bone mineral density. The World Health Organization (WHO) interprets the T-scores as follows: Above -1 Normal bone density Between -1 and -2.5 Osteopenia Equal to / or below -2.5 Osteoporosis As a practical clinical guideline, osteopenia may be graded as follows: Mild -1 through -1.5 Moderate -1.6 through -2.0 Severe -2.1 through -2.4 The Z-score is the number of standard deviations above or below age-matched controls. A Z-score of less than -1.5 would be considered abnormal. References: 1. NIH Osteoporosis and Related Bone Diseases www osteo.org 2. International Society for Clinical Densitometry www iscd.org 3. National Osteoporosis Foundation www nof.org Electronically Signed: Edenilson Crisostomo MD at 12:44 EDT , CC: Dr. Rochelle Hackett MD; Dr. Larissa Nguyễn MD Farm Management Agent: Signed Normal [facility] SCREEN MAMM (CAD) W/SUNNI UNI Jw 05-31-2024 SCREEN MAMM (CAD) W/SUNNI UNI R [facility] Imaging Services [address] [place] [address] SCREEN MAMM (CAD) W/SUNNI UNI R MR#: [id number] Acct: [id number] Name: ROSANA MAKI Rep #: [id number] : 1940 F 84 From: Edenilson montgomery MD PCP: Dr. Rochelle Hackett MD Status: REG [facility] Study: SCREEN MAMM (CAD) W/SUNNI UNI R Date of Exam: 0 05/31/24 Exam# [id number] Ordering Dr: Larissa Nguyễn MD [id number] MAMMOGRAPHY - UNILATERAL SCREENING: RIGHT BREAST REASON FOR EXAM: Female, 84 years old. Routine annual screening examination (unilateral). PERTINENT HISTORY: Personal history of breast cancer. Prior left mastectomy. Sister with breast cancer. TECHNIQUE: Digital unilateral breast sunni (3D mammographic acquisition) in the CC and MLO projections. 2-D mediolateral oblique (MLO) and craniocaudad (CC) views of both breasts were obtained. CAD: Full Field Digital Mammography with Computer Added Detection was performed. COMPARISON: Comparison is made with prior study dated May 21, 2023 and May 14, 2022. FINDINGS: Breast Composition: There are scattered areas of fibroglandular density. There are no dominant masses or suspicious calcifications. No other significant abnormalities are identified. There has been no significant change since the prior study. BI/SCREEN MAMM (CAD) W/SUNNI UNI R IMPRESSION: Stable unilateral screening mammogram. Yearly follow-up mammogram recommended. (A) ASSESSMENT CATEGORY: BIRADS Category 1: Negative. A letter regarding these results will be sent to the patient by the facility within 30 days. Approximately 10% of breast cancers are not detected by mammography. A normal mammogram should not delay biopsy of a clinically suspicious abnormality. [id number] Electronically Signed: Edenilson Crisostomo MD at 14:19 EDT , CC: Dr. Rochelle Hackett MD; Dr. Larissa Nguyễn MD Farm Management Agent: Signed Normal [facility] 05-20-2024 [facility] Telephone (INTMWS) ROSANA MAKI ([id number]) 1940 F NFR Date Time Provider Department 05/20/24 ROCHELLE HACKETT During your visit today, we recorded the following information about you: Teri Araiza LPN 05/20/2024 4:15 PM Signed ----- Message from Rochelle Hackett MD sent at 05/19/2024 9:27 AM EDT ----- Magnesium levels are normal Regards, Teri Moody MD, LPN 05/20/2024 4:16 PM Signed Updated patient via MyChart Teri Araiza LPN May 20, 2024 4:16 PM Allergies As of Date: 05/20/2024 Noted Allergy Reaction ADHESIVE TAPE (ROSINS) 11/11/2013 2 - Rash CANTALOUPE 08/12/2005 ERYTHROMYCIN 08/12/2005 8 - GI Upset GEMTESA (VIBEGRON) 07/09/2023 6 - Diarrhea GRASS POLLEN 08/13/2005 MOLD 08/13/2005 PENICILLINS 08/12/2005 2 - Rash 7 - Swelling POLLEN 08/13/2005 PREVACID (LANSOPRAZOLE) 05/02/2014 6 - Diarrhea Comments: All PPIs tried have given her diarrhea. SULFA (SULFONAMIDE ANTIBIOTICS) 08/12/2005 Comments: Pt uncertain if Sulfa allergy is accurate or not. Date Reviewed: 05/18/2024 Reviewed by: Faith Hauser LPN - Fully Assessed Reason for Visit: Results [95] Prescriptions as of 05/20/2024 - zoledronic acid (ZOMETA INTRAVENOUS) Inject intravenously. Every 6 months - esomeprazole (NEXIUM) 40 mg capsule Take 1 capsule by mouth daily before breakfast. 1/2 hr before meal. - famotidine (PEPCID) 20 mg tablet take 1 tablet by mouth at bedtime if needed - BENEFIBER, GUAR GUM, ORAL Take 2 teaspoonsful by mouth two times a day as needed. - meclizine (ANTIVERT) 25 mg tab Take 1 tablet by mouth every 6 hours as needed (dizziness). - fludrocortisone (FLORINEF) 0.1 mg tablet Taking 3 times a week - Magnesium Glycinate 120mg 3 at night Stress, blood sugar, thyroid/hormones/adrenals/s leep/energy/toxins/muscles/ constipation/asthma Work up to 3 capsules with meals at night - can cause loose stools - metoprolol succinate ER (TOPROL XL) 25 mg 24 hr tablet Take half tablet in the morning and 1 tablet in the evening. - APIXABAN (ELIQUIS ORAL) Take by mouth [...] once daily. Problem List As Of Date 05/20/2024 Noted Resolved Irritable Bowel Syndrome [K58.9] OSTEOPENIA [M89.9, M94.9] 07/04/2009 Esophageal reflux [K21.9] Other forms of migraine [346.8] 05/04/2007 Unspecified constipation [K59.00] Asymptomatic Postmenopausal Status (Age-Related* 10/28/2012 Osteoarth NOS-L/Leg [AKM0308] Palpitations [R00.2] 02/23/2009 Osteoporosis [M81.0] 07/04/2009 03/13/2012 Insomnia [G47.00] 02/11/2011 Hyponatremia [E87.1] 02/11/2011 Chronic fatigue disorder [G93.32] 02/11/2011 Paroxysmal atrial fibrillation (HCC) [I48.0] Mitral valve prolapse [I34.1] Closed fracture of lumbar vertebra (HCC) [S32.0*10/18/2012 Dizziness and giddiness [R42] 03/08/2013 Pain in joint, lower leg [M25.569] 04/27/2014 Right-sided low back pain with right-sided scia*07/24/2015 Neck pain [M54.2] 08/16/2015 Major depressive disorder, recurrent, in partia*12/20/2015 Osteopenia [M85.80] 12/20/2015 Chronic right shoulder pain [M25.511, G89.29] 11/11/2016 Anxiety and depression [F41.9, F32.A] 02/05/2017 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 (syndrome of inappropriate ADH production*03/09/2018 Chronic pain of right knee [M25.561, G89.29] 10/06/2018 Hospital discharge follow-up [Z09] 11/18/2019 11/12/2022 Mild cognitive disorder [F09] 11/27/2020 Protein-calorie malnutrition, unspecified sever*01/14/2023 Encounter Status:Closed by TERI ARAIZA on 05/20/24 Normal [facility] CNOVon 05-18-2024 CNOV Office Visit (INTMWS ) ROSANA MAKI ([id number]) 1940 F NFR Date Time Provider Department 05/18/24 10:00 AM ROCHELLE HACKETT INTMWS During your visit today, we recorded the following information about you: Pulse Respiration Blood pressure Weight 68/minute 16/minute 128/72 53.6 kg Rochelle Hackett MD 05/18/2024 1:04 PM Signed [facility] Initial Consult Rosana Maki is a 84 year old year old female who comes for Comprehensive Geriatric Assessment. Pt accompanied by: with Laureano Jimenez Caregivers involved in care: HPI: This is a 84-year-old woman with a past medical history of adrenal insufficiency, a flutter, irritable bowel, severe osteoporosis with closed fracture of the lumbar vertebra, anxiety depression, dizziness and giddiness, SIADH, history of breast cancer, esophageal reflux, chronic fatigue syndrome, atrophic vaginitis, anemia and mild cognitive disorder. Was informed by Dr Blanca that she has a mild cognitive decline when in the hospital for hyponatremia. She notes, it takes longer to cook, finish a project, she cannot really, remember details of recipes. notes she is slow in recalling and there is a little memory failure. She also has poly neuropathy, She did undergo Physical Therapy earlier this year. Any Family History of dementia? No family history of dementia, paternal grandmother had dementia. Are you or your spouse a ? Alzheimer Questionnaire Long-term Memory: Difficulty remembering distant events from the past like childhood, previous employment, wedding: NO Behavioral/personality: Withdrawn/Depressed: YES she sees therapist, cannot take medications due to hypnatremia and is controlled Crying spells: NO Anxious: YES controlled History of aggression: NO History of irritability: NO Apathy:NO Recent changes in weight or appetite: NO Alcohol or Drug use: YES couple sips of wine. She pours a little into her wine glass Smoking? NO Sleep: Do you snore loudly (louder than talking or loud enough to be heard through closed doors)? NO she does not really snore loudly Do you often feel tired, fatigued, or sleepy during daytime? YES she feels very tired and fatigued and takes a nap multiple days of the weeks for 45 mins at a time or an hour. Naps are refreshing. She can work through the fatigue. Has anyone observed you stop breathing during your sleep? She sometimes wakes up feeling like she is not breathing right Are you restless when you sleep at night? NO Do you have problems falling a sleep? NO Do you have problems staying a sleep? YES wakes up to get to there rest room, and she cannot get back to sleep Psychosis: Hallucinations or delusions: NO Suicidal or homicidal ideations: NO Obsessions, compulsions, or hoarding: NO Safety: Does pt know his/her address? NO What would you do if there was a fire? Get out How would you call for help?911 Does he/she know 911? YES Are there any firearms in the home? YES If yes are they in a secure location? Yes Social History: Primary language: Andorran Marital Status: Living situation: Home w/ Spouse Socially engaged? (participates in activities such as clubs, synagogue, community center, sports, games, visiting friends/relatives, etc?): YES synagogue, they go there 2 times a week. They meet with friends a lot Caregiver Peggs and Stress Are your feeling overwhelmed? NO Do you have concerns about your own health? NO Are you neglecting your own needs? NO Do you have financial concerns? NO Do your fear loss of employment? NO Do you have concerns about verbal/physical abuse? NO Do you feel that you are still capable of taking care of your relative? NO Are you willing to continue being in the caregiver role? NO B-ADLs: (I=independent,A=assistance ,D=dependent) ?Bathing: I, Dressing: I, Toileting: I, Transferring:I, Continence: I, Feeding: I, I-ADLs: Ability to use phone: I, Shopping: I, Cooking: I, Housekeeping: I, Laundry: I, Transportation:I, Medications: {I, Handle Finances: I. Son helps with some of the financial stuff PMHx: PAST MEDICAL HISTORY 03/08/2013: Abnormality of gait No date: Allergic rhinitis due to other allergen No date: Atrial fibrillation (HCC) 04/25/2008: Chondrocalcinosis, cause unspecified, involving lower leg(712.36) Comment: CPPD right leg (on xray) - has never had an acute pseudogout attack No date: Chronic fatigue No date: Compression fracture of L1 lumbar vertebra (HCC) No date: Concussion No date: Depression No date: Diverticulosis of colon (without mention of hemorrhage) No date: Diverticulosis of large intestine No date: Duodenitis without mention of hemorrhage No date: Dysphagia 08/01/2010: Dysphagia, unspecified(787.20) No date: Esophageal reflux Comment: rare sy (more content not included)... Normal [facility] Magnesium SerPl-mCncon 05-17 Magnesium [Mass/Vol] 2.1 mg/dL Normal 1.7-2.3 [facility] Comment on above: Order Comment: Speci men Type: BLOOD SPECIMENOrdering Facility: [facility] Address: [address] [place] [address] Performed By: #### 1 [id number] ####[facility] LABCLIA [id number] [address] [place] CNOVon 04-22-2024 CNOV Office Visit (PODIWS ) ROSANA MAKI ([id number]) 1940 F NFR Date Time Provider Department 04/22/24 1:40 PM SOL HARVEY During your visit today, we recorded the following information about you: Caroline Day SALT LIFTER 04/22/2024 2:07 PM Signed AMB ROOMING INTAKE FLOWSHEET DATA Pain Pain Level: 4 Pain Location: Foot-Left Description: Cramping, Sore Duration Units: Hours Frequency: Intermittent Intervention/Comfort measure: Reposition, Positioning Comments: intermittent pain in both big toes. Ingrown, deformed nails Patient presents with: Left Great Toe - Established Patient, Pain, Ingrown Toenail, Gait Problem Right Great Toe - Established Patient, Pain, Ingrown Toenail, Gait Problem DARREL Mckeon Matthew 04/22/2024 2:07 PM Signed FOLLOW UP PODIATRIC OFFICE VISIT Chief Complaint: This 84 year old who presents with complaint of ingrowing toenail of b/l hallux and concerns for nail fungus. Patient presents to clinic for evaluation of b/l hallux. She complains of intermittent ingrowing toenail of medial border of b/l hallux. No complaint of infection. States she will tend to get pain on/off Also has concerns about fungus Lastly complains of balance issues and feels it may be related to neuropathy PAIN EVALUATION 04/21/2024 1600 Pain Level: 4 Pain Location: Foot-Left Description: Cramping;Sore Duration Units: Hours Frequency: Intermittent Intervention/Comfort measure: Reposition;Positioning Comments: intermittent pain in both big toes. Ingrown, deformed nails No results found for: HBA1C PCP: Rochelle Hackett MD PAST MEDICAL HISTORY 03/08/2013: Abnormality of gait No date: Allergic rhinitis due to other allergen No date: Atrial fibrillation (HCC) 04/25/2008: Chondrocalcinosis, cause unspecified, involving lower leg(132.36) Comment: CPPD right leg (on xray) - has never had an acute pseudogout attack No date: Chronic fatigue No date: Compression fracture of L1 lumbar vertebra (HCC) No date: Concussion No date: Depression No date: Diverticulosis of colon (without mention of hemorrhage) No date: Diverticulosis of large intestine No date: Duodenitis without mention of hemorrhage No date: Dysphagia 08/01/2010: Dysphagia, unspecified(767.20) No date: Esophageal reflux Comment: rare symptoms, had more pain on Prevacid than off it No date: Esophagitis, unspecified 02/11/2011: Fatigue 04/20/2008: Inflamed seborrheic keratosis 10/07/2010: Ingrown toenail No date: Irritable bowel syndrome Comment: gets constipated easily, also lactose intolerant 02/23/2009: Loss of weight 10/18/2012: Lumbago 09/08/2017: 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 right knee 07/04/2009: Osteoporosis Comment: osteopenia 06/201104/20/2008: Other chronic dermatitis due to solar radiation No date: Other forms of migraine Comment: resolved 04/27/2014: Pain in joint, pelvic region and thigh No date: Recurrent UTI 04/20/2008: SOLAR LENGINES////DYSCHROMIA OTHER No date: Tachycardia Comment: tachycardia, atrial flutter No date: Unspecified constipation No date: Vitamin D deficiency Current Outpatient Medications Medication Sig zoledronic acid (ZOMETA INTRAVENOUS) Inject intravenously. Every 6 months esomeprazole (NEXIUM) 40 mg capsule Take 1 capsule by mouth daily before breakfast. 1/2 hr before meal. famotidine (PEPCID) 20 mg tablet take 1 [...] 120mg 3 at night Stress, blood sugar, thyroid/hormones/adrenals/s leep/energy/toxins/muscles/ constipation/asthma Work up to 3 capsules with meals at night - can cause loose stools metoprolol succinate ER (TOPROL XL) 25 mg 24 hr tablet Take half tablet in the morning and 1 tablet in the evening. APIXABAN (ELIQUIS ORAL) Take by mouth twice [...] No current facility-administered medications for this visit. (more content not included)... Normal [facility] CBC W Auto Differential pane l (Bld)on 04-12-2024 Basophils (Bld) [#/Vol] 0.04 10*3/uL [facility] Basophils/100 WBC (Bld) 0.9 % [facility] Differential cell count method Nom (Bld) Auto [facility] Eosinophils (Bld) [#/Vol] 0.21 10*3/uL [facility] Eosinophils/100 WBC (Bld) 4.9 % [facility] Erythrocyte distribution width (RBC) [Ratio] 15.7 % High 11.5 - 15.0 % [facility] Hematocrit (Bld) [Volume fraction] 35.1 % Low 36.0 - 46.0 % [facility] Hemoglobin (Bld) [Mass/Vol] 11.5 g/dL 11.5 - 15.5 g/dL [facility] Immature granulocytes (Bld) [#/Vol] [facility] Immature granulocytes/100 WBC (Bld) 0.0 % [facility] Interpretation and review of laboratory results Abnormal [facility] Lymphocytes (Bld) [#/Vol] 1.69 10*3/uL [facility] Lymphocytes/100 WBC (Bld) 39.3 % [facility] MCH (RBC) [Entitic mass] 29.9 pg 26.0 - 34.0 pg [facility] MCHC (RBC) [Mass/Vol] 32.8 g/dL 30.5 - 36.0 g/dL [facility] MCV (RBC) [Entitic vol] 91.4 fL 80.0 - 100.0 fL [facility] Monocytes (Bld) [#/Vol] 0.63 10*3/uL [facility] Monocytes/100 WBC (Bld) 14.7 % [facility] Neutrophils (Bld) [#/Vol] 1.73 10*3/uL [facility] Neutrophils/100 WBC (Bld) 40.2 % [facility] Nucleated RBC (Bld) [#/Vol] NINF [facility] Nucleated RBC/100 WBC (Bld) [Ratio] 0.0 % /100 WBC [facility] Platelet mean volume (Bld) [Entitic vol] 9.9 fL 9.0 - 12.7 fL [facility] Platelets (Bld) [#/Vol] 269 10*3/uL [facility] RBC (Bld) [#/Vol] 3.84 10*6/uL Low 3.90 - 5.20 m/uL [facility] WBC (Bld) [#/Vol] 4.30 10*3/uL [facility] Basophils (Bld) [#/Vol] 0.04 10*3/uL Normal <0.11 [facility] Comment on above: Order Comment: Speci men Type: BLOOD SPECIMENOrdering Facility: [facility] Address: [address] [place] [address] Performed By: #### 5 7021-8 ####[facility]IA [id number] [place] [address] [place] Basophils/100 WBC (Bld) 0.9 % Normal [facility] Comment on above: Order Comment: Speci men Type: BLOOD SPECIMENOrdering Facility: [facility] Address: [address] [place] [address] Performed By: #### 5 7021-8 ####[facility] LABCLIA [id number] [place] [address] [place] Differential cell count method Nom (Bld) Auto Normal [facility] Comment on above: Order Comment: Speci men Type: BLOOD SPECIMENOrdering Facility: [facility] Address: [address] [place] [address] Performed By: #### 5 7021-8 ####[facility] [id number] [place] [address] [place] Eosinophils (Bld) [#/Vol] 0.21 10*3/uL Normal <0.46 [facility] Comment on above: Order Comment: Speci men Type: BLOOD SPECIMENOrdering Facility: [facility] Address: [address] [place] [address] Performed By: #### 5 7021-8 ####[facility] LABCLIA [id number] [place] [address] [place] Eosinophils/100 WBC (Bld) 4.9 % Normal [facility] Comment on above: Order Comment: Speci men Type: BLOOD SPECIMENOrdering Facility: [facility] Address: [address] [place] [address] Performed By: #### 5 7021-8 ####[facility] LABCLIA [id number] [place] [address] [place] Erythrocyte distribution width (RBC) [Ratio] 15.7 % High 11.5-15.0 [facility] Comment on above: Order Comment: Speci men Type: BLOOD SPECIMENOrdering Facility: [facility] Address: [address] [place] [address] Performed By: #### 5 7021-8 ####[facility] LABCL[facility] [id number] [place] [address] [place] Hematocrit (Bld) [Volume fraction] 35.1 % Low 36.0-46.0 [facility] Comment on above: Order Comment: Speci men Type: BLOOD SPECIMENOrdering Facility: [facility] Address: [address] [place] [address] Performed By: #### 5 7021-8 ####[facility] LABCLIA [id number] [place] [address] [place] Hemoglobin (Bld) [Mass/Vol] 11.5 g/dL Normal 11.5-15.5 [facility] Comment on above: Order Comment: Speci men Type: BLOOD SPECIMENOrdering Facility: [facility] Address: [address] [place] [address] Performed By: #### 5 7021-8 ####[facility] LABCL[facility] [id number] [place] [address] [place] Immature granulocytes (Bld) [#/Vol] 10*3/uL Normal <0.10 [facility] Comment on above: Order Comment: Speci men Type: BLOOD SPECIMENOrdering Facility: [facility] Address: [address] [place] [address] Performed By: #### 5 7021-8 ####[facility]CL[facility] [id number] [place] [address] [place] Immature granulocytes/100 WBC (Bld) 0.0 % Normal [facility] Comment on above: Order Comment: Speci men Type: BLOOD SPECIMENOrdering Facility: [facility] Address: [address] [place] [address] Performed By: #### 5 7021-8 ####[facility] LABCLIA [id number] [place] [address] [place] Lymphocytes (Bld) [#/Vol] 1.69 10*3/uL Normal 1.00-4.00 [facility] Comment on above: Order Comment: Speci men Type: BLOOD SPECIMENOrdering Facility: [facility] Address: [address] [place] [address] Performed By: #### 5 7021-8 ####[facility] LABCLIA [id number] [place] [address] [place] Lymphocytes/100 WBC (Bld) 39.3 % Normal [facility] Comment on above: Order Comment: Speci men Type: BLOOD SPECIMENOrdering Facility: [facility] Address: [address] [place] [address] Performed By: #### 5 7021-8 ####[facility] LABCLIA [id number] [place] [address] [place] MCH (RBC) [Entitic mass] 29.9 pg Normal 26.0-34.0 [facility] Comment on above: Order Comment: Speci men Type: BLOOD SPECIMENOrdering Facility: [facility] Address: [address] [place] [address] Performed By: #### 5 7021-8 ####[facility]CLIA [id number] [place] [address] [place] MCHC (RBC) [Mass/Vol] 32.8 g/dL Normal 30.5-36.0 [facility] Comment on above: Order Comment: Speci men Type: BLOOD SPECIMENOrdering Facility: [facility] Address: [address] [place] [address] Performed By: #### 5 7021-8 ####[facility] LABCLIA [id number] [place] [address] [place] MCV (RBC) [Entitic vol] 91.4 fL Normal 80.0-100.0 [facility] Comment on above: Order Comment: Speci men Type: BLOOD SPECIMENOrdering Facility: [facility] Address: [address] [place] [address] Performed By: #### 5 7021-8 ####[facility] [id number] [place] [address] [place] Monocytes (Bld) [#/Vol] 0.63 10*3/uL Normal <0.87 [facility] Comment on above: Order Comment: Speci men Type: BLOOD SPECIMENOrdering Facility: [facility] Address: [address] [place] [address] Performed By: #### 5 7021-8 ####[facility] LABCLIA [id number] [place] [address] [place] Monocytes/100 WBC (Bld) 14.7 % Normal [facility] Comment on above: Order Comment: Speci men Type: BLOOD SPECIMENOrdering Facility: [facility] Address: [address] [place] [address] Performed By: #### 5 7021-8 ####[facility]CL[facility] [id number] [place] [address] [place] Neutrophils (Bld) [#/Vol] 1.73 10*3/uL Normal 1.45-7.50 [facility] Comment on above: Order Comment: Speci men Type: BLOOD SPECIMENOrdering Facility: [facility] Address: [address] [place] [address] Performed By: #### 5 7021-8 ####[facility]CLIA [id number] [place] [address] [place] Neutrophils/100 WBC (Bld) 40.2 % Normal [facility] Comment on above: Order Comment: Speci men Type: BLOOD SPECIMENOrdering Facility: [facility] Address: [address] [place] [address] Performed By: #### 5 7021-8 ####[facility]CL[facility] [id number] [place] [address] [place] Nucleated RBC (Bld) [#/Vol] 10*3/uL Normal <0.01 [facility] Comment on above: Order Comment: Speci men Type: BLOOD SPECIMENOrdering Facility: [facility] Address: [address] [place] [address] Performed By: #### 5 7021-8 ####[facility] LABCLIA [id number] [place] [address] [place] Nucleated RBC/100 WBC (Bld) [Ratio] 0.0 /100 WBC Normal [facility] Comment on above: Order Comment: Speci men Type: BLOOD SPECIMENOrdering Facility: [facility] Address: [address] [place] [address] Performed By: #### 5 7021-8 ####[facility] LABCLIA [id number] [place] [address] [place] Platelet mean volume (Bld) [Entitic vol] 9.9 fL Normal 9.0-12.7 [facility] Comment on above: Order Comment: Speci men Type: BLOOD SPECIMENOrdering Facility: [facility] Address: [address] [place] [address] Performed By: #### 5 7021-8 ####[facility] [id number] [place] [address] [place] Platelets (Bld) [#/Vol] 269 10*3/uL Normal 150-400 [facility] Comment on above: Order Comment: Speci men Type: BLOOD SPECIMENOrdering Facility: [facility] Address: [address] [place] [address] Performed By: #### 5 7021-8 ####[facility] [id number] [place] [address] [place] RBC (Bld) [#/Vol] 3.84 10*6/uL Low 3.90-5.20 [facility] Comment on above: Order Comment: Speci men Type: BLOOD SPECIMENOrdering Facility: [facility] Address: [address] [place] [address] Performed By: #### 5 7021-8 ####[facility] [id number] [place] [address] [place] WBC (Bld) [#/Vol] 4.30 10*3/uL Normal 3.70-11.00 [facility] Comment on above: Order Comment: Speci men Type: BLOOD SPECIMENOrdering Facility: [facility] Address: [address] [place] [address] Performed By: #### 5 7021-8 ####[facility] [id number] [place] [address] [place] CNOVon 04-12-2024 CNOV Office Visit (INTMWS ) ROSANA MAKI ([id number]) 1940 F NFR Date Time Provider Department 04/12/24 9:00 AM ROCHELLE HACKETT INTMWS During your visit today, we recorded the following information about you: Pulse Respiration Blood pressure Weight 84/minute 16/minute 126/74 53.5 kg Height 1.702 m Rochelle Hackett MD 04/12/2024 11:18 AM Signed Reason for Visit Patient presents with: 6 mo follow up Rosana Maki is a 84 year old female who presents here today for Above Complaints.. Health Maintenance There are no preventive care reminders to display for this patient. HPI This is a 84-year-old woman with a past medical history of adrenal insufficiency, a flutter, irritable bowel, severe osteoporosis with closed fracture of the lumbar vertebra, anxiety depression, dizziness and giddiness, SIADH, history of breast cancer, esophageal reflux, chronic fatigue syndrome, atrophic vaginitis, anemia and mild cognitive disorder. She was admitted 3-4 times in the past year for different reasons one of them being abnormality of gait and mobility, orthostatic hypotension, polyneuropathy, uti, epistaxis. Breast cancer and osteoporosis:She is now on zometa, was taking prolia, she has stopped the arimidex, will be having a BMD, and mammogram in May . Afib: on eliquis and tikosyn. Bleeding episodes are most bothersome. The last epistaxis needed cautery by Dr Shin. 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 Related to arimidex Anxiety depression: she sees the therapist every other week as the ssri worsen her SIADH. So she is doing well on the therapy. SIADH: followed by Dr. Enciso. On and off she goes into hyponatremia which presents in different ways and she has to be hospitalized most of this times. No problem-specific Assessment AND Plan notes found [...] Never Vaping Use Vaping Use: Never used (more content not included)... [facility]ATEMEHWS[facility] ROSANA MAKI ([id number]) 1940 F NFR Date Time Provider Department 04/12/24 AL NICHOLE During your visit today, we recorded the following information about you: Jane Harrell MA 04/12/2024 10:04 AM Signed Consult to geriatrics pended for mild cognitive impairment. Please file if agreeable. MITCHELL Riley Joy, APRN.CNP 04/13/2024 10:16 AM Signed Agree with recommendation. Consult order placed. Thank you Al Nichole APRN.FLIGHT FOLLOWER Allergies As of Date: 04/12/2024 Noted Allergy Reaction ADHESIVE TAPE (ROSINS) 11/11/2013 2 - Rash CANTALOUPE 08/12/2005 ERYTHROMYCIN 08/12/2005 8 - GI Upset GEMTESA (VIBEGRON) 07/09/2023 6 - Diarrhea GRASS POLLEN 08/13/2005 MOLD 08/13/2005 PENICILLINS 08/12/2005 2 - Rash 7 - Swelling POLLEN 08/13/2005 PREVACID (LANSOPRAZOLE) 05/02/2014 6 - Diarrhea Comments: All PPIs tried have given her diarrhea. SULFA (SULFONAMIDE ANTIBIOTICS) 08/12/2005 Comments: Pt uncertain if Sulfa allergy is accurate or not. Date Reviewed: 04/12/2024 Reviewed by: Jane Harrell MA - Fully Assessed Reason for Visit: Orders [681] Primary Visit Diagnosis:Mild cognitive impairment [G31.84] Order(s):CONSULT TO GERIATRICS [7689] Order #: [id number]: 1 FUTURE Prescriptions as of 04/13/2024 - zoledronic acid (ZOMETA INTRAVENOUS) Inject intravenously. Every 6 months - esomeprazole (NEXIUM) 40 mg capsule Take 1 capsule by mouth daily before breakfast. 1/2 hr before meal. - famotidine (PEPCID) 20 mg tablet take 1 tablet by mouth at bedtime if needed - BENEFIBER, GUAR GUM, ORAL Take 2 teaspoonsful by mouth two times a day as needed. - meclizine (ANTIVERT) 25 mg tab Take 1 tablet by mouth every 6 hours as needed (dizziness). - fludrocortisone (FLORINEF) 0.1 mg tablet Taking 3 times a week - Magnesium Glycinate 120mg 3 at night Stress, blood sugar, thyroid/hormones/adrenals/s leep/energy/toxins/muscles/ constipation/asthma Work up to 3 capsules with meals at night - can cause loose stools - metoprolol succinate ER (TOPROL XL) 25 mg 24 hr tablet Take half tablet in the morning and 1 tablet in the evening. - APIXABAN (ELIQUIS ORAL) Take by mouth [...] once daily. Problem List As Of Date 04/12/2024 Noted Resolved Irritable Bowel Syndrome [K58.9] OSTEOPENIA [M89.9, M94.9] 07/04/2009 Esophageal reflux [K21.9] Other forms of migraine [346.8] 05/04/2007 Unspecified constipation [K59.00] Asymptomatic Postmenopausal Status (Age-Related* 10/28/2012 Osteoarth NOS-L/Leg [GQB2740] Palpitations [R00.2] 02/23/2009 Osteoporosis [M81.0] 07/04/2009 03/13/2012 Insomnia [G47.00] 02/11/2011 Hyponatremia [E87.1] 02/11/2011 Chronic fatigue disorder [G93.32] 02/11/2011 Paroxysmal atrial fibrillation (HCC) [I48.0] Mitral valve prolapse [I34.1] Closed fracture of lumbar vertebra (HCC) [S32.0*10/18/2012 Dizziness and giddiness [R42] 03/08/2013 Pain in joint, lower leg [M25.569] 04/27/2014 Right-sided low back pain with right-sided scia*07/24/2015 Neck pain [M54.2] 08/16/2015 Major depressive disorder, recurrent, in partia*12/20/2015 Osteopenia [M85.80] 12/20/2015 Chronic right shoulder pain [M25.511, G89.29] 11/11/2016 Anxiety and depression [F41.9, F32.A] 02/05/2017 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 (syndrome of inappropriate ADH production*03/09/2018 Chronic pain of right knee [M25.561, G89.29] 10/06/2018 Hospital discharge follow-up [Z09] 11/18/2019 11/12/2022 Mild cognitive disorder [F09] 11/27/2020 Protein-calorie malnutrition, unspecified sever*01/14/2023 Encounter Status:Closed by CRISTINA MUNSON on 04/13/24 Normal [facility] Comprehensive metabolic 2000 panelon 04-12-2024 Albumin [Mass/Vol] 3.6 g/dL Low 3.9-4.9 [facility] Comment on above: Order Comment: Speci men Type: BLOOD SPECIMENOrdering Facility: [facility] Address: [address] [place] [address] Performed By: #### 2 4323-8, 2132-9, 56481-9, 2275-4 ####[facility]CL[facility] [id number] [address] [address] [place] ALP [Catalytic activity/Vol] 87 U/L Normal 34-123 [facility] Comment on above: Order Comment: Speci men Type: BLOOD SPECIMENOrdering Facility: [facility] Address: [address] [place] [address] Performed By: #### 2 4323-8, 2131-9, 26217-2, 2275-4 ####[facility]CL[facility] [id number] [address] [address] [place] ALT [Catalytic activity/Vol] 17 U/L Normal 7-38 [facility] Comment on above: Order Comment: Speci men Type: BLOOD SPECIMENOrdering Facility: [facility] Address: [address] [place] [address] Performed By: #### 2 4323-8, 2131-9, 72646-0, 2275-4 ####[facility]CL[facility] [id number] [address] [address] [place] Anion gap [Moles/Vol] 9 mmol/L Normal 8-15 [facility] Comment on above: Order Comment: Speci men Type: BLOOD SPECIMENOrdering Facility: [facility] Address: [address] [place] [address] Performed By: #### 2 4323-8, 9, 81979-3, 2275-4 ####[facility]CL[facility] [id number] [address] [address] [place] AST [Catalytic activity/Vol] 26 U/L Normal 13-35 [facility] Comment on above: Order Comment: Speci men Type: BLOOD SPECIMENOrdering Facility: [facility] Address: [address] [place] [address] Performed By: #### 2 4323-8, 2131-9, 71190-6, 2275-4 ####[facility]CL[facility] [id number] [address] [address] [place] Bilirubin [Mass/Vol] 0.4 mg/dL Normal 0.2-1.3 [facility] Comment on above: Order Comment: Speci men Type: BLOOD SPECIMENOrdering Facility: [facility] Address: [address] [place] [address] Performed By: #### 2 4323-8, 2131-9, 38306-3, 6-4 ####[facility]CL[facility] [id number] [address] [address] [place] Calcium [Mass/Vol] 8.7 mg/dL Normal 8.5-10.2 [facility] Comment on above: Order Comment: Speci men Type: BLOOD SPECIMENOrdering Facility: [facility] Address: [address] [place] [address] Performed By: #### 2 4323-8, 2131-9, 33080-6, 2275-4 ####[facility] [id number] [place] [id number] [place] Chloride [Moles/Vol] 98 mmol/L Normal 98-107 [facility] Comment on above: Order Comment: Speci men Type: BLOOD SPECIMENOrdering Facility: [facility] Address: [address] [place] [address] Performed By: #### 2 4323-8, 2131-9, 94134-1, 6-4 ####[facility]CL[facility] [id number] [address] [address] [place] CO2 [Moles/Vol] 25 mmol/L Normal 22-30 [facility] Comment on above: Order Comment: Speci men Type: BLOOD SPECIMENOrdering Facility: [facility] Address: [address] [place] [address] Performed By: #### 2 4323-8, 2131-9, 05302-0, 6-4 ####[facility] [id number] [address] [address] [place] Creatinine [Mass/Vol] 0.77 mg/dL Normal 0.58-0.96 [facility] Comment on above: Order Comment: Adelaida agudelo Type: BLOOD SPECIMENOrdering Facility: [facility] Address: [address] [place] [address] Performed By: #### 2 4323-8, 2-9, 90518-3, 2275-4 ####[facility] [id number] [place] [id number] [place] Creatinine and Glomerular filtration rate.predicted panel (S/P/Bld) 77 mL/min/1.73m??? Normal >=60 [facility] Comment on above: Order Comment: Adelaida agudelo Type: BLOOD SPECIMENOrdering Facility: [facility] Address: [address] [place] [address] Result Comment: Merna mated Glomerular Filtration Rate (eGFR) is calculated using the 2020 CKD-EPI creatinine equation. This equation utilizes serum creatinine, sex, and age as parameters. The creatinine assay has traceable calibration to isotope dilution-mass spectrometry. Refer to KDIGO guidelines for clinical interpretation. In patients with unstable renal function, e.g. those with acute kidney injury, the eGFR may not accurately reflect actual GFR. Performed By: #### 2 4323-8, 2-9, 21797-8, 2275-4 ####[facility] [id number] [address] [address] [place] Glucose [Mass/Vol] 81 mg/dL Normal 74-99 [facility] Comment on above: Order Comment: Adelaida agudelo Type: BLOOD SPECIMENOrdering Facility: [facility] Address: [address] [place] [address] Result Comment: The [place] [employer] (ADA) provides guidance for cutoff values for fasting glucose and random glucose. The ADA defines fasting as no caloric intake for at least 8 hours. Fasting plasma glucose results between 100 to 125 mg/dL indicate increased risk for diabetes (prediabetes). Fasting plasma glucose results greater than or equal to 126 mg/dL meet the criteria for diagnosis of diabetes. In the absence of unequivocal hyperglycemia, results should be confirmed by repeat testing. In a patient with classic symptoms of hyperglycemia or hyperglycemic crisis, random plasma glucose results greater than or equal to 200 mg/dL meet the criteria for diagnosis of diabetes. Reference: Standards of Medical Care in Diabetes 2016, [place] [employer]. Diabetes Care. 2016.39(Suppl 1). Performed By: #### 2 4323-8, 9, 73900-0, 2275-4 ####[facility] [id number] [place] [id number] [place] Potassium [Moles/Vol] 4.4 mmol/L Normal 3.7-5.1 [facility] Comment on above: Order Comment: Speci men Type: BLOOD SPECIMENOrdering Facility: [facility] Address: [address] [place] [address] Performed By: #### 2 4323-8, 9, 80099-5, 2275-4 ####[facility] [id number] [place] [id number] [place] Protein [Mass/Vol] 6.0 g/dL Low 6.3-8.0 [facility] Comment on above: Order Comment: Adelaida agudelo Type: BLOOD SPECIMENOrdering Facility: [facility] Address: [address] [place] [address] Performed By: #### 2 4323-8, 9, 72761-2, 2275-4 ####[facility] [id number] [place] [id number] [place] Sodium [Moles/Vol] 132 mmol/L Low 136-144 [facility] Comment on above: Order Comment: Speci men Type: BLOOD SPECIMENOrdering Facility: [facility] Address: [address] [place] [address] Performed By: #### 2 4323-8, 9, 27330-0, 2275-4 ####[facility] LABCLIA [id number] [place] [id number] [place] Urea nitrogen [Mass/Vol] 14 mg/dL Normal 7-21 [facility] Comment on above: Order Comment: Speci men Type: BLOOD SPECIMENOrdering Facility: [facility] Address: [address] [place] [address] Performed By: #### 2 4323-8, 2131-9, 72460-0, 2275-4 ####[facility] LABCLIA [id number] [place] [id number] [place] Ferritin SerPl-ncon 2023 Ferritin [Mass/Vol] 37.0 ng/mL Normal 14.7-205.1 [facility] Comment on above: Order Comment: Speci men Type: BLOOD SPECIMENOrdering Facility: [facility] Address: [address] [place] [address] Performed By: #### 2 4323-8, 9, 02259-3, 4 ####[facility] LABCLIA [id number] [place] [id number] [place] Iron and Iron binding capaci panelon 04-12-2024 Iron [Mass/Vol] 194 ug/dL High 41-186 [facility] Comment on above: Order Comment: Speci men Type: BLOOD SPECIMENOrdering Facility: [facility] Address: [address] [place] [address] Performed By: #### 2 4323-8, 2-9, 73682-5, 2275-4 ####[facility] LABCLIA [id number] [place] [id number] [place] Iron binding capacity [Mass/Vol] 346 ug/dL Normal 232-386 [facility] Comment on above: Order Comment: Speci men Type: BLOOD SPECIMENOrdering Facility: [facility] Address: [address] [place] [address] Performed By: #### 2 4323-8, 2-9, 81921-0, 2276-4 ####[facility] LABCLIA [id number] [address] [address] [place] Iron/TIBC [Molar ratio] 56.1 % Normal 15.0-57.0 [facility] Comment on above: Order Comment: Speci men Type: BLOOD SPECIMENOrdering Facility: [facility] Address: [address] [place], [place] [address] Performed By: #### 2 4323-8, 2-9, 69155-6, 6-4 ####[facility] LABCLIA [id number] [place] [id number] [place] Vit B12 [facility] 024 Cobalamin (Vitamin B12) [Mass/Vol] 506 pg/mL Normal 232-1245 [facility] Comment on above: Order Comment: Speci men Type: BLOOD SPECIMENOrdering Facility: [facility] Address: [address] [place], [place] [id number] Performed By: #### 2 4323-8, 2131-9, 84014-4, 6-4 ####[facility] LABCLIA [id number] [address] [address] [place] Basic Metabolic Profile (BMP )on 03-28-2024 BUN/CRE 23.4 RATIO High 10-20 [facility] Comment on above: Performed By: #### L 500.4050, L100.0100 #### [facility] [address] [place], [address] CA,Total 8.6 mg/dL Normal 8.5-10.1 [facility] Comment on above: Performed By: #### L 500.4050, L100.0100 #### [facility] [address] [place], [address] Chloride [Moles/Vol] 94 mmol/L Low 98-[address] [facility] Comment on above: Performed By: #### L 500.4050, L100.0100 #### [facility] [address] [place], [address] CO2 [Moles/Vol] 25.0 mmol/L Normal 21.0-32.0 [facility] Comment on above: Performed By: #### L 500.4050, L100.0100 #### [facility] [address] [place], [address] Creatinine [Mass/Vol] 0.90 mg/dL Normal 0.55-1.02 [facility] Comment on above: Result Comment: The validity of the calculated GFR GFRAA in patients over 70 years has not been determined. Clinical correlation is essential. Performed By: #### L 500.4050, L100.0100 #### [facility] [address] [place], [address] ECRCL 41.15 ml/min Normal [facility] Comment on above: Performed By: #### L 500.4050, L100.0100 #### [facility] [address] [place], [address] EST GFR - AA 77 mL/min Normal >60 [facility] Comment on above: Result Comment: Afri can Somali GFR Calc Performed By: #### L 500.4050, L100.0100 #### [facility] [address] [place], [address] GAP 9 Normal 5-15 [facility] Comment on above: Performed By: #### L 500.4050, L100.0100 #### [facility] [address] [place], [address] GFR/1.73 sq M.predicted among non-blacks MDRD (S/P/Bld) [Vol rate/Area] 64 mL/min/{1.73_m2} Normal >60 [facility] Comment on above: Result Comment: Non- GFR Calc Performed By: #### L 500.4050, L100.0100 #### [facility] [address] [place], [address] Glucose [Mass/Vol] 107 mg/dL High 74-106 [facility] Comment on above: Result Comment: Fast ing Glucose result from 100 to 125 mg/dL suggests IMPAIRED HOMEOSTASIS per A.D.A. criteria. Performed By: #### L 500.4050, L100.0100 #### [facility] [address] [place], [address] Potassium [Moles/Vol] 3.7 mmol/L Normal 3.5-5.1 [facility] Comment on above: Performed By: #### L 500.4050, L100.0100 #### [facility] [address] [place], [address] Sodium [Moles/Vol] 128 mmol/L Low 136-145 [facility] Comment on above: Performed By: #### L 500.4050, L100.0100 #### [facility] [address] [place], [address] Urea nitrogen [Mass/Vol] 21 mg/dL High 7-18 [facility] Comment on above: Performed By: #### L 500.4050, L100.0100 #### [facility] [address] [place], [address] Basic Metabolic Profile (BMP )on 03-17-2024 BUN Normal -18 [facility] Comment on above: Result Comment: PT N EVER SHOWED Performed By: #### L 500.4050, L100.0100 #### [facility] [address] [place], [address] BUN/CRE Normal 10-20 [facility] Comment on above: Result Comment: PT N EVER SHOWED Performed By: #### L 500.4050, L100.0100 #### [facility] [address] [place], [address] CA,Total Normal 8.5-10.1 [facility] Comment on above: Result Comment: PT N EVER SHOWED Performed By: #### L 500.4050, L100.0100 #### [facility] [address] [place], [address] CL Normal 98-107 [facility] Comment on above: Result Comment: PT N EVER SHOWED Performed By: #### L 500.4050, L100.0100 #### [facility] [address] [place], [address] CO2 Normal 21.0-32.0 [facility] Comment on above: Result Comment: PT N EVER SHOWED Performed By: #### L 500.4050, L100.0100 #### [facility] [address] [place], [address] CREAT,SERUM Normal 0.55-1.02 [facility] Comment on above: Result Comment: PT N EVER SHOWED Performed By: #### L 500.4050, L100.0100 #### [facility] [address] [place], [address] EST GFR Normal >60 [facility] Comment on above: Result Comment: PT N EVER SHOWED Performed By: #### L 500.4050, L100.0100 #### [facility] [address] [place], [address] EST GFR - AA Normal >60 [facility] Comment on above: Result Comment: PT N EVER SHOWED Performed By: #### L 500.4050, L100.0100 #### [facility] [address] [place], [address] GAP Normal 5-15 [facility] Comment on above: Result Comment: PT N EVER SHOWED Performed By: #### L 500.4050, L100.0100 #### [facility] [address] [place], [address] GLU Normal 74-106 [facility] Comment on above: Result Comment: PT N EVER SHOWED Performed By: #### L 500.4050, L100.0100 #### [facility] [address] [place], [address] Potassium Normal 3.5-5.1 [facility] Comment on above: Result Comment: PT N EVER SHOWED Performed By: #### L 500.4050, L100.0100 #### [facility] [address] [place], [address] Basic Metabolic Profile (BMP) Normal 136-145 [facility] Comment on above: Result Comment: PT N EVER SHOWED Performed By: #### L 500.4050, L100.0100 #### [facility] [address] 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 [place] [address] OFFICE VISIT Date of Service: 03/08/24 MR#: [id number] Acct: [id number] Name: ROSANA AMKI Rep #: [id number] : 1940 Provider: ZULLY jiménez Age/Sex: 84/F Location: [facility] Status: Signed with Addenda ADDENDUM by ZULLY Baker on 03/08/24 at 1427 Assessment and Plan Assessment and Plan (1) History of breast cancer: Status: Acute Comment: left mastectomy 2016 (2) Lichen sclerosus: Status: Chronic Comment: clobetesol prn (3) Atrophic vaginitis: Status: Chronic Comment: OTC lubricants, stretching Medications: Refilled clobetasol 0.05% 1 applic TOPICAL apply thin layer as directed bid X 2 weeks then daily X 2 weeks; apply thin layer; massage in to cover area 15 grams 0RF Plan Breast exam was deferred per patient request. 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: * Signed Intake Vital Signs 02/16/24 13:34 03/03/24 13:45 03/08/24 11:21 03/08/24 11:31 Height 5 ft 7 in 5 ft 7 in 5 ft 7 in 5 ft 7 in Weight: 120 lb 118 lb 8 oz 120 lb 2 oz BMI 18.8 18.5 18.8 BP 134/74 H 130/80 H 124/70 H Blood Pressure Location Rt brachial Rt brachial Position Sitting Sitting Respiration 14 17 Pulse 62 61 Pulse Source Monitor Monitor Temp 98.0 F 98.0 F Pulse Oximetry (%) 99 99 Oxygen Delivery Method room air room air Intake Visit Reasons: Annual ([employer]) Chief Complaint: Annual Outreach Assistant Required: No Is patient in pain?: No Allergies cantaloupe Allergy (Severe, Verified 03/08/24 11:35) Anaphylaxis grass pollen Allergy (Severe, Verified 03/08/24 11:35) Unknown Penicillins Allergy (Severe, Verified 03/08/24 11:35) Anaphylaxis Sulfa (Sulfonamide Antibiotics) Allergy (Unknown, Verified 03/08/24 11:35) Other mold Allergy (Verified 03/08/24 11:35) Unknown pollen extracts Allergy (Verified 03/08/24 11:35) Unknown erythromycin base Adverse Reaction (Severe, Verified 03/08/24 11:35) Unknown lansoprazole (From Prevacid) Adverse Reaction (Severe, Verified 03/08/24 11:35) Nausea/Vom/Diarrhea adhesive tape Adverse Reaction (Intermediate, Verified 03/08/24 11:35) Rash Medications ???Medication ???Instructions ???Recorded ???Confirmed ???Type Bilaterl knee high compression #2 ea 05/29/22 03/08/24 Rx stockings (10-20) calcium carbonate 600 mg PO DAILY 10/14/22 03/08/24 History cholecalciferol (vitamin D3) 10 2,000 unit PO DAILY supplement 10/14/22 03/08/24 History mcg (400 unit) capsule esomeprazole magnesium 40 mg See Rx Instructions .Route 12/18/22 03/08/24 Rx capsule,delayed release .COMPLEX #90 caps apixaban 5 mg tablet 5 mg PO BID #60 tabs 07/23/23 03/08/24 Rx fludrocortisone 0.1 mg tablet 0.05 mg (1/2 x 0.1 mg) .Route 09/22/23 03/08/24 Rx .COMPLEX #8 tabs dofetilide 250 mcg capsule See Rx Instructions .Route 10/12/23 03/08/24 Rx .COMPLEX #180 caps cranberry 500 mg capsule 500 mg PO BID 01/18/24 03/08/24 History magnesium oxide 400 mg (241.3 mg 400 mg PO DAILY #90 tabs 01/21/24 03/08/24 Rx magnesium) tablet metoprolol succinate 25 mg 25 mg PO .COMPLEX #135 tabs 01/21/24 03/08/24 Rx tablet,extended release 24 hr ondansetron 4 mg disintegrating 4 mg PO Q8H PRN PRN Nausea #10 tabs 01/23/24 03/08/24 Rx tablet sodium chloride 1,000 mg soluble 1,000 mg PO DAILY electrolyte 03/03/24 03/08/24 Rx tablet replenishment #30 tabs clobetasol 0.05 % topical cream 1 applic topical .COMPLEX #15 grams 03/08/24 03/08/24 Rx ferrous sulfate 325 mg (65 mg 325 mg PO DAILY 03/08/24 03/08/24 History iron) tablet (FeroSul) Is last menstrual period known: No Post menopausal: Yes Patient : No : No PFSH Medical History Motion sickness Adrenal insufficiency History of atrial flutter Breast pain, right History of breast cancer COVID-19 Chronic diarrhea Osteopenia 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 Lichen sclerosus Atrophic vaginitis TIA (transient ischemic attack) SIADH (syndrome of inappropriate ADH production) Anemia GERD (gastroesophageal reflux disease) Diverticulitis Migraine Osteopenia Nonrheumatic mitral (valve) prolapse Paroxysmal atrial fibrillation Ovarian cyst Compression fracture of L1 lumbar vertebra Paroxysmal atrial flutter Atrial flutter IBS (irritable bowel syndrome) history of blood transfusion 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 Normal [facility] Sodium Levelon 03-08-2024 Sodium [Moles/Vol] 127 mmol/L Low 136-145 [facility] Comment on above: Performed By: #### L 500.4050, L100.0100 #### [facility] [address] [place], [place], [address] Neurology Visit Reporton Neurology Visit Report [facility] [address], [address] [place], [place] [address] OFFICE VISIT Date of Service: 03/03/24 MR#: [id number] Acct: [id number] Name: ROSANA MAKI Rep #: [id number] : 1940 Provider: Dr. Erick seymour MD Age/Sex: 84/F Location: [facility] Status: Signed Intake Vital Signs 09/22/23 07:56 11/26/23 13:47 02/16/24 13:34 03/03/24 13:45 Height 5 ft 7 in 5 ft 7 in 5 ft 7 in 5 ft 7 in Weight: 118 lb 8 oz BMI 18.5 BP 130/80 H Blood Pressure Location Rt brachial Position Sitting Respiration 17 Pulse 61 Pulse Source Monitor Temp 98.0 F Temp Source Temporal Pulse Oximetry (%) 99 Oxygen Delivery Method room air Intake Visit Reasons: 4 M FU Chief Complaint: Outreach Assistant Required: No Accompanied by: Self Allergies cantaloupe Allergy (Severe, Verified 03/03/24 13:54) Anaphylaxis grass pollen Allergy (Severe, Verified 03/03/24 13:54) Unknown Penicillins Allergy (Severe, Verified 03/03/24 13:54) Anaphylaxis Sulfa (Sulfonamide Antibiotics) Allergy (Unknown, Verified 03/03/24 13:54) Other mold Allergy (Verified 03/03/24 13:54) Unknown pollen extracts Allergy (Verified 03/03/24 13:54) Unknown erythromycin base Adverse Reaction (Severe, Verified 03/03/24 13:54) Unknown lansoprazole (From Prevacid) Adverse Reaction (Severe, Verified 03/03/24 13:54) Nausea/Vom/Diarrhea adhesive tape Adverse Reaction (Intermediate, Verified 03/03/24 13:54) Rash PFSH Medical History (Updated 01/31/24 @ 00:01 by Background Daemon) Motion sickness Adrenal insufficiency History of atrial flutter Breast pain, right History of breast cancer COVID-19 Chronic diarrhea Osteopenia 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 Lichen sclerosus Atrophic vaginitis TIA (transient ischemic attack) SIADH (syndrome of inappropriate ADH production) Anemia GERD (gastroesophageal reflux disease) Diverticulitis Migraine Osteopenia Nonrheumatic mitral (valve) prolapse Paroxysmal atrial fibrillation Ovarian cyst Compression fracture of L1 lumbar vertebra Paroxysmal atrial flutter Atrial flutter IBS (irritable bowel syndrome) history of blood transfusion 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) Chronic hyponatremia Surgical History History of cataract surgery History of colonoscopy (05/2019) History of esophagogastroduodenoscopy (EGD) (05/2019) History of left heart catheterization (09/2012) H/O left mastectomy History of radiofrequency ablation (RFA) procedure for cardiac arrhythmia (08/2013) History of removal of ovarian cyst H/O lymph node biopsy H/O breast biopsy History of dilation and curettage Family History Father Unknown family medical history Mother Uterine cancer Thyroid disorder Kidney disease Hypertension CHF (congestive heart failure) Arthritis Social History household members: spouse Smoking Status: Never smoker alcohol intake: current alcohol intake frequency: holidays/special occasions only substance use type: does not use caffeine: Yes what type of physical activity do you participate in: walking and yoga frequency: 3-4 times per week seatbelt use: always do you feel safe at home: Yes additional social history: -Kylee Patient and are both retired HPI HPI Chief Complaint: Details: Interim History: Rosana returns for follow-up visit. She has a history of SIADH, ductal carcinoma of the left breast (s/p breast surgery in 2017; she did not require chemotherapy or radiation), anemia, paroxysmal atrial fibrillation, mitral valve prolapse and osteopenia. She was hospitalized in November 2019 for dizziness and confusion. She had a negative work-up for acute CVA; her MRI showed moderate chronic small vessel ischemic disease. She has had frequent hyponatremia, first identified around the year 1999 and was diagnosed with SIADH. Her sodium level is often in the high 120s to low 130's (she has had a serum sodium level as low as 121). Her last sodium level (January 2024) was 128. She has frequently experienced gait imbalance, nausea, lightheadedness, dizziness, generalized weakness and fatigue. She has had physical therapy for gait imbalance and this was of slight benefit. Aquatic therapy was also of benefit. Continuing aquatic therapy on her own worsened her dizziness. Physical therapy earlier in 2023 was of benefit for her energy level and gait. She infrequently uses meclizine 25 mg and this is effective for her dizziness and nausea however the medication is sedating. She no longer takes promethazine due to concern that it may cause QTc prolongation. 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 She has reduced her fluid intake and has u (more content not included)... Normal [facility] Absolute lymphocyte countOrd ered By: Vinh Colon on 01-23-2024 Lymphocytes Auto (Unsp spec) [#/Vol] 1.51 10*3/uL 0.83-4.51 [facility] Automated lymphocyte count a s percentage of total leukocytesOrdered By: Vinh Colon on 01-23-2024 Lymphocytes/100 WBC Auto (Unsp spec) 30.0 % 19-41 [facility] Basophil percentageOrdered B y: Vinh Colon on 01-23-2024 Basophils/100 WBC (Bld) 0.8 % 0-1 [facility] Chloride [Moles/Vol] 94 mmol/L 98-107 [facility] Eosinophils/100 WBC (Bld) 0.4 % 0-5 [facility] Glucose [Mass/Vol] 141 mg/dL 74-106 [facility] Comment on above: Fasting Glucose resu lt greater than or equal to 126 mg/dL suggests DIABETES MELLITUS per A.D.A. criteria. Hemoglobin (Bld) [Mass/Vol] 11.6 g/dL 12.0-15.0 [facility] Monocytes/100 WBC (Bld) 5.2 % 0-10 [facility] Neutrophils (Bld) [#/Vol] 3.2 10*3/uL 2.0-7.7 [facility] Neutrophils/100 WBC (Bld) 63.4 % 47-70 [facility] Potassium [Moles/Vol] 3.5 mmol/L 3.5-5.1 [facility] Sodium [Moles/Vol] 128 mmol/L 136-145 [facility] WBC (Bld) [#/Vol] 5.0 10*3/uL 4.4-11.0 [facility] Determination of erythrocyte mean corpuscular volume (MCV)Ordered By: Vinh Colon on 01-23-2024 MCV (RBC) [Entitic vol] 87.4 fL 81-99 [facility] Erythrocyte distribution wid th ratioOrdered By: Vinh Colon on 01-23-2024 Erythrocyte distribution width (RBC) [Ratio] 14.6 % 11.6-14.6 [facility] Erythrocyte distribution wid th standard deviationOrdered By: Vinh Colon on 01-23-2024 Erythrocyte distribution width (RBC) [Entitic vol] 46.9 fL 35.1-43.9 [facility] Hematocrit Auto (Bld) [Volum e fraction]Ordered By: Vinh Colon on 01-23-2024 Hematocrit (Bld) [Volume fraction] 34.7 % 37-47 [facility] Immature granulocytes/100 WB C Auto (Bld)Ordered By: Vinh Colon on 01-23-2024 Immature granulocytes/100 WBC (Bld) 0.200 % 0.0-0.9 [facility] Comment on above: IG% - Immature Granu locytes (promyelocytes, myelocytes and metamyelocytes) > 1% indicates that a LEFT SHIFT is Present. Laboratory - Chemistry and C hemistry - challengeOrdered By: Vinh Colon on 01-23-2024 CO2 [Moles/Vol] 25.0 mmol/L 21.0-32.0 [facility] Urea nitrogen/Creatinine [Mass ratio] 20.0 mg/mg 10-20 [facility] Laboratory - Hematology and Cell countsOrdered By: Vinh Colon on 01-23-2024 MCH (RBC) [Entitic mass] 29.2 pg 27.0-32.0 [facility] MCHC (RBC) [Mass/Vol] 33.4 g/dL 32-36 [facility] Nucleated RBC/100 WBC (Bld) [Ratio] 0 % 0-5 [facility] Platelet mean volume (Bld) [Entitic vol] 9.0 fL 6.2-12.0 [facility] Platelets (Bld) [#/Vol] 286 10*3/uL 150-450 [facility] No Panel InformationOrdered By: Vinh Colon on 01-23-2024 Estimated Creatinine Clearance Calc 43.88 ml/min [facility] Estimated GFR (MDRD) Amer 83 mL/min >60 [facility] Comment on above: GFR Calc Estimated GFR (MDRD) Non-Af Amer 68 mL/min >60 [facility] Comment on above: Non- GFR Calc RBC Auto (Bld) [#/Vol]Ordere d By: Vinh Colon on 01-23-2024 RBC (Bld) [#/Vol] 3.97 10*6/uL 4.2-5.4 [facility] Serum or plasma calcium glo urement (mass/volume)Ordered By: Vinh Colon on 01-23-2024 Calcium [Mass/Vol] 9.0 mg/dL 8.5-10.1 [facility] Serum or plasma creatinine m easurement (mass/volume)Ordered By: Vinh Colon on 01-23-2024 Creatinine [Mass/Vol] 0.85 mg/dL 0.55-1.02 [facility] Comment on above: The validity of the calculated GFR & GFRAA in patients over 70 years has not been determined. Clinical correlation is essential. Serum or plasma urea nitroge n measurement (mass/volume)Ordered By: Vinh Colon on 01-23-2024 Urea nitrogen [Mass/Vol] 17 mg/dL 7-18 [facility] Thin prep Papanicolaou smear with manual screeningOrdered By: Vinh Colon on 01-23-2024 Thin prep Papanicolaou smear with manual screening 9 5-15 [facility] Basophil percentageOrdered B y: Eagle Enciso on 12-18-2023 Chloride [Moles/Vol] 101 mmol/L 98-107 [facility] Glucose [Mass/Vol] 85 mg/dL 74-106 [facility] Potassium [Moles/Vol] 4.1 mmol/L 3.5-5.1 [facility] Sodium [Moles/Vol] 134 mmol/L 136-145 [facility] Laboratory - Chemistry and C hemistry - challengeOrdered By: Eagle Enciso on 12-18-2023 CO2 [Moles/Vol] 28.0 mmol/L 21.0-32.0 [facility] Urea nitrogen/Creatinine [Mass ratio] 19.9 mg/mg 10-20 [facility] No Panel InformationOrdered By: Eagle Enciso on 12-18-2023 Estimated GFR (MDRD) Amer 88 mL/min >60 [facility] Comment on above: GFR Calc Estimated GFR (MDRD) Non-Af Amer 73 mL/min >60 [facility] Comment on above: Non- GFR Calc Serum or plasma calcium glo urement (mass/volume)Ordered By: Eagle Enciso on 12-18-2023 Calcium [Mass/Vol] 8.8 mg/dL 8.5-10.1 [facility] Serum or plasma creatinine m easurement (mass/volume)Ordered By: Eagle Enciso on 12-18-2023 Creatinine [Mass/Vol] 0.80 mg/dL 0.55-1.02 [facility] Comment on above: The validity of the calculated GFR & GFRAA in patients over 70 years has not been determined. Clinical correlation is essential. Serum or plasma urea nitroge n measurement (mass/volume)Ordered By: Eagle Enciso on 12-18-2023 Urea nitrogen [Mass/Vol] 16 mg/dL 7-18 [facility] [facility] Thin prep Papanicolaou smear with manual screeningOrdered By: Eagle Enciso on 12-18-2023 Thin prep Papanicolaou smear with manual screening 5 5-15 [facility] Absolute lymphocyte countOrd ered By: Mayur Tabares on 12-08-2023 Lymphocytes Auto (Unsp spec) [#/Vol] 0.60 10*3/uL 0.83-4.51 [facility] Automated lymphocyte count a s percentage of total leukocytesOrdered By: Mayur Tabares on 12-08-2023 Lymphocytes/100 WBC Auto (Unsp spec) 18.8 % 19-41 [facility] Basophil percentageOrdered B y: Mayur Tabares on 12-08-2023 Basophils/100 WBC (Bld) 0.3 % 0-1 [facility] Chloride [Moles/Vol] 98 mmol/L 98-107 [facility] Eosinophils/100 WBC (Bld) 0.9 % 0-5 [facility] Glucose [Mass/Vol] 114 mg/dL 74-106 [facility] Comment on above: Fasting Glucose resu lt from 100 to 125 mg/dL suggests IMPAIRED HOMEOSTASIS per A.D.A. criteria. Hemoglobin (Bld) [Mass/Vol] 11.3 g/dL 12.0-15.0 [facility] Monocytes/100 WBC (Bld) 7.2 % 0-10 [facility] Neutrophils (Bld) [#/Vol] 2.3 10*3/uL 2.0-7.7 [facility] Neutrophils/100 WBC (Bld) 72.5 % 47-70 [facility] Potassium [Moles/Vol] 3.9 mmol/L 3.5-5.1 [facility] Sodium [Moles/Vol] 130 mmol/L 136-145 [facility] WBC (Bld) [#/Vol] 3.2 10*3/uL 4.4-11.0 [facility] Basophil percentage 50-100 SEEN /hpf 0-5 [facility] Bilirubin Test strip Ql (U)O rdered By: Mayur Tabares on 12-08-2023 Bilirubin Ql (U) Negative Negative [facility] Blood manual differential co mment interpretation (narrative result)Ordered By: Mayur Tabares on 12-08-2023 Manual differential comment Inocencio (Bld) [Interp] SEE COMMENT [facility] Comment on above: LYMPHOPENIA NOTED Blood platelet adequacy dete ction by light microscopyOrdered By: Mayur Tabares on 12-08-2023 Platelets LM Ql (Bld) ADEQUATE ADEQ [facility] Culture, urineOrdered By: Getachew Tabares on 12-08-2023 Bacteria identified Cx Nom (U) Positive [facility] Determination of erythrocyte mean corpuscular volume (MCV)Ordered By: Mayur Tabares on 12-08-2023 MCV (RBC) [Entitic vol] 88.2 fL 81-99 [facility] Erythrocyte distribution wid th ratioOrdered By: Mayur Tabares on 12-08-2023 Erythrocyte distribution width (RBC) [Ratio] 14.9 % 11.6-14.6 [facility] Erythrocyte distribution wid th standard deviationOrdered By: Mayur Tabares on 12-08-2023 Erythrocyte distribution width (RBC) [Entitic vol] 48.4 fL 35.1-43.9 [facility] Hematocrit Auto (Bld) [Volum e fraction]Ordered By: Mayur Tabares on 12-08-2023 Hematocrit (Bld) [Volume fraction] 33.6 % 37-47 [facility] Immature granulocytes/100 WB C Auto (Bld)Ordered By: Mayur Tabares on 12-08-2023 Immature granulocytes/100 WBC (Bld) 0.300 % 0.0-0.9 [facility] Comment on above: IG% - Immature Granu locytes (promyelocytes, myelocytes and metamyelocytes) > 1% indicates that a LEFT SHIFT is Present. Ketones Test strip Ql (U)Ord ered By: Mayur Tabares on 12-08-2023 Ketones Ql (U) 5 mg/dl Negative [facility] Laboratory - Chemistry and C hemistry - challengeOrdered By: Mayur Tabares on 12-08-2023 CO2 [Moles/Vol] 25.0 mmol/L 21.0-32.0 [facility] Urea nitrogen/Creatinine [Mass ratio] 17.7 mg/mg 10-20 [facility] Laboratory - Hematology and Cell countsOrdered By: Mayur Tabares on 12-08-2023 Anisocytosis Ql (Bld) RARE [facility] MCH (RBC) [Entitic mass] 29.7 pg 27.0-32.0 [facility] MCHC (RBC) [Mass/Vol] 33.6 g/dL 32-36 [facility] Nucleated RBC/100 WBC (Bld) [Ratio] 0 % 0-5 [facility] Platelet mean volume (Bld) [Entitic vol] 9.0 fL 6.2-12.0 [facility] Platelets (Bld) [#/Vol] 221 10*3/uL 150-450 [facility] Laboratory - Microbiology an d Antimicrobial susceptibilityOrdered By: Mayur Tabares on 12-08-2023 SARS-CoV-2 (COVID-19) RNA MIGUEL ANGEL+probe Ql (Unsp spec) [facility] Macrocytes detectionOrdered By: Mayur Tabares on 12-08-2023 Macrocytes Ql (Bld) RARE [facility] Mucus LM Ql (Urine sed)Order ed By: Mayur Tabares on 12-08-2023 Mucus Ql (Urine sed) RARE /hpf [facility] Nitrite Test strip Ql (U)Ord ered By: Mayur Tabares on 12-08-2023 Nitrite Ql (U) Negative Negative [facility] No Panel InformationOrdered By: Mayur Tabares on 12-08-2023 Estimated Creatinine Clearance Calc 45.23 ml/min [facility] Estimated GFR (MDRD) Amer 83 mL/min >60 [facility] Comment on above: GFR Calc Estimated GFR (MDRD) Non-Af Amer 69 mL/min >60 [facility] Comment on above: Non- GFR Calc Urine RBC 0-5 SEEN /hpf 0-5 [facility] Ovalocyte detectionOrdered B y: Mayur Tabares on 12-08-2023 Ovalocytes LM Ql (Bld) RARE [facility] Protein Test strip Ql (U)Ord ered By: Mayur Tabares on 12-08-2023 Protein Ql (U) 15 mg/dl Negative [facility] RBC Auto (Bld) [#/Vol]Ordere d By: Mayur Tabares on 12-08-2023 RBC (Bld) [#/Vol] 3.81 10*6/uL 4.2-5.4 [facility] RBC morphologyOrdered By: Getachew Tabares on 12-08-2023 RBC morphology finding Nom (Bld) N CHROM NORMAL NORM C&C [facility] Review by pathologistOrdered By: Mayur Tabares on 12-08-2023 Pathologist review Inocencio (Unsp spec) [Interp] May foll [facility] Pathologist review Inocencio (Unsp spec) [Interp] Reviewed [facility] Comment on above: Previous reported re sult: Emily andrew Edited by: DIANA on 12/09/23:1625LEUKOPENIAClinical correlation necessary.Chi Patricia M.D. 12/09/23 AMENDED REPORT 12/09/23 1625 PATH REV previously reported as: Emily morales Serum or plasma calcium glo urement (mass/volume)Ordered By: Mayur Tabares on 12-08-2023 Calcium [Mass/Vol] 8.2 mg/dL 8.5-10.1 [facility] Serum or plasma creatinine m easurement (mass/volume)Ordered By: Mayur Tabares on 12-08-2023 Creatinine [Mass/Vol] 0.85 mg/dL 0.55-1.02 [facility] Comment on above: The validity of the calculated GFR & GFRAA in patients over 70 years has not been determined. Clinical correlation is essential. Serum or plasma urea nitroge n measurement (mass/volume)Ordered By: Mayur Tabares on 12-08-2023 Urea nitrogen [Mass/Vol] 15 mg/dL 7-18 [facility] Squamous epithelial cells de tection in urine sediment by light microscopyOrdered By: Mayur Tabares on 12-08-2023 Epithelial cells.squamous LM Ql (Urine sed) 0-5 SEEN /hpf 5-10 [facility] Thin prep Papanicolaou smear with manual screeningOrdered By: Mayur Tabares on 12-08-2023 Thin prep Papanicolaou smear with manual screening 7 5-15 [facility] Urine blood detectionOrdered By: Mayur Tabares on 12-08-2023 RBC Ql (U) 50 /ul Negative [facility] Urine clarityOrdered By: Barbara Tabares on 12-08-2023 Clarity (U) Cloudy Clear [facility] Urine color determinationOrd ered By: Mayur Tabares on 12-08-2023 Color (U) Yellow Yellow [facility] Urine glucose detectionOrder ed By: Mayur Tabares on 12-08-2023 Glucose Ql (U) Normal mg/dl Normal [facility] Urine leukocyte esterase det ection by dipstickOrdered By: Mayur Tabares on 12-08-2023 Leukocyte esterase Test strip Ql (U) 500 /ul Negative [facility] Urine pHOrdered By: Mayur wiggins on 12-08-2023 pH (U) 5.0 [pH] 5.0 - 8.0 [facility] Urine sediment bacteria coun t by microscopy (number/high power field)Ordered By: Mayur Tabares on 12-08-2023 Bacteria LM.HPF (Urine sed) [#/Area] 1 /[HPF] None Seen [facility] Urine specific gravity measu rementOrdered By: Mayur Tabares on 12-08-2023 Specific gravity (U) [Rel density] 1.015 1.002-1.03 0 [facility] Urine urobilinogen measureme ntOrdered By: Mayur Tabares on 12-08-2023 Urobilinogen Ql (U) 1 mg/dl Normal [facility] Absolute lymphocyte countOrd ered By: Michelle Hunt on 11-22-2023 Lymphocytes Auto (Unsp spec) [#/Vol] 1.14 10*3/uL 0.83-4.51 [facility] Automated lymphocyte count a s percentage of total leukocytesOrdered By: Michelle Hunt on 11-22-2023 Lymphocytes/100 WBC Auto (Unsp spec) 27.0 % 19-41 [facility] Basophil percentageOrdered B y: Michelle Gilbert on 11-22-2023 Basophils/100 WBC (Bld) 0.5 % 0-1 [facility] Bilirubin [Mass/Vol] 0.60 mg/dL 0.20-1.00 [facility] Comment on above: For patients on eltr ombopag therapy, use of Dimension Ethan TBIL is not recommended. Chloride [Moles/Vol] 101 mmol/L 98-107 [facility] Eosinophils/100 WBC (Bld) 0.2 % 0-5 [facility] Glucose [Mass/Vol] 110 mg/dL 74-106 [facility] Comment on above: Fasting Glucose resu lt from 100 to 125 mg/dL suggests IMPAIRED HOMEOSTASIS per A.D.A. criteria. Hemoglobin (Bld) [Mass/Vol] 9.6 g/dL 12.0-15.0 [facility] Monocytes/100 WBC (Bld) 10.6 % 0-10 [facility] Neutrophils (Bld) [#/Vol] 2.6 10*3/uL 2.0-7.7 [facility] Neutrophils/100 WBC (Bld) 61.5 % 47-70 [facility] Potassium [Moles/Vol] 3.4 mmol/L 3.5-5.1 [facility] Protein [Mass/Vol] 5.4 g/dL 6.4-8.2 [facility] Sodium [Moles/Vol] 131 mmol/L 136-145 [facility] WBC (Bld) [#/Vol] 4.2 10*3/uL 4.4-11.0 [facility] Determination of erythrocyte mean corpuscular volume (MCV)Ordered By: Michelle Gilbert on 11-22-2023 MCV (RBC) [Entitic vol] 89.2 fL 81-99 [facility] Erythrocyte distribution wid th ratioOrdered By: [facility] Gilbert on 11-22-2023 Erythrocyte distribution width (RBC) [Ratio] 14.0 % 11.6-14.6 [facility] Erythrocyte distribution wid th standard deviationOrdered By: Michelle Hunt on 11-22-2023 Erythrocyte distribution width (RBC) [Entitic vol] 46.0 fL 35.1-43.9 [facility] Hematocrit Auto (Bld) [Volum e fraction]Ordered By: Michelle Gilbert on 11-22-2023 Hematocrit (Bld) [Volume fraction] 28.8 % 37-47 [facility] Immature granulocytes/100 WB C Auto (Bld)Ordered By: Michelle Gilbert on 11-22-2023 Immature granulocytes/100 WBC (Bld) 0.200 % 0.0-0.9 [facility] Comment on above: IG% - Immature Granu locytes (promyelocytes, myelocytes and metamyelocytes) > 1% indicates that a LEFT SHIFT is Present. Iron measurement (mass/mass) Ordered By: Marty Bassett on 11-22-2023 Iron (Unsp spec) [Mass/Mass] 65 ug/dL 50-170 [facility] Laboratory - Chemistry and C hemistry - challengeOrdered By: Michelle Gilbert on 11-22-2023 Albumin/Globulin [Mass ratio] 0.9 {ratio} 0.9-2.4 [facility] ALP [Catalytic activity/Vol] 57 U/L 45-117 [facility] ALT [Catalytic activity/Vol] 16 U/L 13-56 [facility] CO2 [Moles/Vol] 25.0 mmol/L 21.0-32.0 [facility] Globulin (S) [Mass/Vol] 2.9 g/dL 2.2-4.2 [facility] Urea nitrogen/Creatinine [Mass ratio] 12.3 mg/mg 10-20 [facility] - Chemistry and C hemistry - challengeOrdered By: Marty Bassett on 11-22-2023 Cobalamin (Vitamin B12) [Mass/Vol] 353 pg/mL 211-911 [facility] Ferritin [Mass/Vol] 8 ng/mL 8-252 [facility] Laboratory - Hematology and Cell countsOrdered By: Michelle Hunt on 11-22-2023 MCH (RBC) [Entitic mass] 29.7 pg 27.0-32.0 [facility] MCHC (RBC) [Mass/Vol] 33.3 g/dL 32-36 [facility] Nucleated RBC/100 WBC (Bld) [Ratio] 0 % 0-5 [facility] Platelet mean volume (Bld) [Entitic vol] 9.7 fL 6.2-12.0 [facility] Platelets (Bld) [#/Vol] 242 10*3/uL 150-450 [facility] No Panel InformationOrdered By: Michelle Hunt on 11-22-2023 Estimated Creatinine Clearance Calc 45.54 ml/min [facility] Estimated GFR (MDRD) Amer 98 mL/min >60 [facility] Comment on above: GFR Calc Estimated GFR (MDRD) Non-Af Amer 81 mL/min >60 [facility] Comment on above: Non- GFR Calc No Panel InformationOrdered By: Marty Bassett on 11-22-2023 Folate 12.30 ng/mL 3.1-55.4 [facility] Total Iron Binding Capacity 381 ug/dL 250-450 [facility] RBC Auto (Bld) [#/Vol]Ordere d By: Michelle Hunt on 11-22-2023 RBC (Bld) [#/Vol] 3.23 10*6/uL 4.2-5.4 [facility] Serum or plasma calcium glo urement (mass/volume)Ordered By: Michelle Hunt on 11-22-2023 Calcium [Mass/Vol] 7.1 mg/dL 8.5-10.1 [facility] Serum or plasma creatinine m easurement (mass/volume)Ordered By: Michelle Hunt on 11-22-2023 Creatinine [Mass/Vol] 0.73 mg/dL 0.55-1.02 [facility] Comment on above: The validity of the calculated GFR & GFRAA in patients over 70 years has not been determined. Clinical correlation is essential. Serum or plasma iron saturat ion measurement (mass fraction)Ordered By: Marty Bassett on 11-22-2023 Iron saturation [Mass fraction] 17.1 % 15.0-55.0 [facility] Serum or plasma urea nitroge n measurement (mass/volume)Ordered By: Michelle Hunt on 11-22-2023 Urea nitrogen [Mass/Vol] 9 mg/dL 7-18 [facility] Thin prep Papanicolaou smear with manual screeningOrdered By: Michelle Hunt on 11-22-2023 Thin prep Papanicolaou smear with manual screening 2.5 g/dL 3.2-5.0 [facility] Thin prep Papanicolaou smear with manual screening 17 U/L 15-37 [facility] Thin prep Papanicolaou smear with manual screening 5 5-15 [facility] Thin prep Papanicolaou smear with manual screeningOrdered By: Marty Bassett on 11-22-2023 Thin prep Papanicolaou smear with manual screening 265 mOsm/KG 280-301 [facility] Absolute lymphocyte countOrd ered By: ED PROVIDER on 11-21-2023 Lymphocytes Auto (Unsp spec) [#/Vol] 1.55 10*3/uL 0.83-4.51 [facility] Automated lymphocyte count a s percentage of total leukocytesOrdered By: ED PROVIDER on 11-21-2023 Lymphocytes/100 WBC Auto (Unsp spec) 32.0 % 19-41 [facility] Basophil percentageOrdered B y: Loraineus Ortez on 11-21-2023 Basophil percentage 0 SEEN /hpf 0-5 [facility] Basophil percentageOrdered B y: Michelle Hunt on 11-21-2023 Basophil percentage 2.5 mg/dL 2.5-4.9 [facility] Basophil percentageOrdered B y: ED PROVIDER on 11-21-2023 Basophils/100 WBC (Bld) 0.6 % 0-1 [facility] Bilirubin [Mass/Vol] 0.90 mg/dL 0.20-1.00 [facility] Comment on above: For patients on eltr ombopag therapy, use of Dimension Ethan TBIL is not recommended. Chloride [Moles/Vol] 94 mmol/L 98-107 [facility] Eosinophils/100 WBC (Bld) 0.4 % 0-5 [facility] Glucose [Mass/Vol] 145 mg/dL 74-106 [facility] Comment on above: Fasting Glucose resu lt greater than or equal to 126 mg/dL suggests DIABETES MELLITUS per A.D.A. criteria. Hemoglobin (Bld) [Mass/Vol] 12.3 g/dL 12.0-15.0 [facility] Monocytes/100 WBC (Bld) 6.2 % 0-10 [facility] Neutrophils (Bld) [#/Vol] 2.9 10*3/uL 2.0-7.7 [facility] Neutrophils/100 WBC (Bld) 60.6 % 47-70 [facility] Potassium [Moles/Vol] 3.6 mmol/L 3.5-5.1 [facility] Protein [Mass/Vol] 7.3 g/dL 6.4-8.2 [facility] Sodium [Moles/Vol] 126 mmol/L 136-145 [facility] WBC (Bld) [#/Vol] 4.8 10*3/uL 4.4-11.0 [facility] Bilirubin Test strip Ql (U)O rdered By: Viet Ortez on 11-21-2023 Bilirubin Ql (U) Negative Negative [facility] Determination of erythrocyte mean corpuscular volume (MCV)Ordered By: ED PROVIDER on 11-21-2023 MCV (RBC) [Entitic vol] 86.9 fL 81-99 [facility] Erythrocyte distribution wid th ratioOrdered By: ED PROVIDER on 11-21-2023 Erythrocyte distribution width (RBC) [Ratio] 14.0 % 11.6-14.6 [facility] Erythrocyte distribution wid th standard deviationOrdered By: ED PROVIDER on 11-21-2023 Erythrocyte distribution width (RBC) [Entitic vol] 44.6 fL 35.1-43.9 [facility] Hematocrit Auto (Bld) [Volum e fraction]Ordered By: ED PROVIDER on 11-21-2023 Hematocrit (Bld) [Volume fraction] 36.4 % 37-47 [facility] Immature granulocytes/100 WB C Auto (Bld)Ordered By: ED PROVIDER on 11-21-2023 Immature granulocytes/100 WBC (Bld) 0.200 % 0.0-0.9 [facility] Comment on above: IG% - Immature Granu locytes (promyelocytes, myelocytes and metamyelocytes) > 1% indicates that a LEFT SHIFT is Present. Ketones Test strip Ql (U)Ord ered By: Viet Ortez on 11-21-2023 Ketones Ql (U) 15 mg/dl Negative [facility] Laboratory - Chemistry and C hemistry - challengeOrdered By: Marty Bassett on 11-21-2023 Sodium (U) [Moles/Vol] 147 mmol/L Not Establ. [facility] Laboratory - Chemistry and C hemistry - challengeOrdered By: ED PROVIDER on 11-21-2023 Albumin/Globulin [Mass ratio] 0.8 {ratio} 0.9-2.4 [facility] ALP [Catalytic activity/Vol] 78 U/L 45-117 [facility] ALT [Catalytic activity/Vol] 21 U/L 13-56 [facility] CO2 [Moles/Vol] 23.0 mmol/L 21.0-32.0 [facility] Globulin (S) [Mass/Vol] 4.0 g/dL 2.2-4.2 [facility] Urea nitrogen/Creatinine [Mass ratio] 13.9 mg/mg 10-20 [facility] Laboratory - Chemistry and C hemistry - challengeOrdered By: Michelle Hunt on 11-21-2023 Magnesium [Mass/Vol] 2.1 mg/dL 1.6-2.6 [facility] Laboratory - Hematology and Cell countsOrdered By: ED PROVIDER on 11-21-2023 MCH (RBC) [Entitic mass] 29.4 pg 27.0-32.0 [facility] MCHC (RBC) [Mass/Vol] 33.8 g/dL 32-36 [facility] Nucleated RBC/100 WBC (Bld) [Ratio] 0 % 0-5 [facility] Platelet mean volume (Bld) [Entitic vol] 8.9 fL 6.2-12.0 [facility] Platelets (Bld) [#/Vol] 278 10*3/uL 150-450 [facility] Mucus LM Ql (Urine sed)Order ed By: Viet Ortez on 11-21-2023 Mucus Ql (Urine sed) 0 SEEN /hpf [facility] Nitrite Test strip Ql (U)Ord ered By: Viet Ortez on 11-21-2023 Nitrite Ql (U) Negative Negative [facility] No Panel InformationOrdered By: Viet Ortez on 11-21-2023 Urine RBC 0 SEEN /hpf 0-5 [facility] No Panel InformationOrdered By: ED PROVIDER on 11-21-2023 Estimated Creatinine Clearance Calc 45.81 ml/min [facility] Estimated GFR (MDRD) Amer 90 mL/min >60 [facility] Comment on above: GFR Calc Estimated GFR (MDRD) Non-Af Amer 74 mL/min >60 [facility] Comment on above: Non- GFR Calc Protein Test strip Ql (U)Ord ered By: Viet Ortez on 11-21-2023 Protein Ql (U) 15 mg/dl Negative [facility] RBC Auto (Bld) [#/Vol]Ordere d By: ED PROVIDER on 11-21-2023 RBC (Bld) [#/Vol] 4.19 10*6/uL 4.2-5.4 [facility] Serum or plasma calcium glo urement (mass/volume)Ordered By: ED PROVIDER on 11-21-2023 Calcium [Mass/Vol] 8.5 mg/dL 8.5-10.1 [facility] Serum or plasma creatinine m easurement (mass/volume)Ordered By: ED PROVIDER on 11-21-2023 Creatinine [Mass/Vol] 0.79 mg/dL 0.55-1.02 [facility] Comment on above: The validity of the calculated GFR & GFRAA in patients over 70 years has not been determined. Clinical correlation is essential. Serum or plasma urea nitroge n measurement (mass/volume)Ordered By: ED PROVIDER on 11-21-2023 Urea nitrogen [Mass/Vol] 11 mg/dL 7-18 [facility] Serum procalcitonin measurem entOrdered By: Michelle Hunt on 11-21-2023 Procalcitonin [Mass/Vol] 0.04 ng/mL 0.00-0.09 [facility] Comment on above: A procalcitonin (PCT ) level above 2.0 ng/mL on the first day of ICU admission is associated with a high risk for progression to severe sepsis and/or septic shock. A PCT level below 0.5 ng/mL on the first day of ICU admission is associated with a low risk for progression to severe and/or septic shock. Note: Concentrations <0.5 ng/mL do not exclude an infection on account of localized infections (without systemic signs) which can be associated with such low concentrations, or a systemic infection in its initial stages (<6 hours). Furthermore, increased procalcitonin can occur without infection. PCT concentrations between 0.5 and 2.0 ng/mL should be interpreted taking into account the patient's history. It is recommended to retest PCT within 6-24 hours if any concentrations <2 ng/mL are obtained. Squamous epithelial cells de tection in urine sediment by light microscopyOrdered By: Viet Ortez on 11-21-2023 Epithelial cells.squamous LM Ql (Urine sed) 0 SEEN /hpf 5-10 [facility] Thin prep Papanicolaou smear with manual screeningOrdered By: ED PROVIDER on 11-21-2023 Thin prep Papanicolaou smear with manual screening 3.3 g/dL 3.2-5.0 [facility] Thin prep Papanicolaou smear with manual screening 20 U/L 15-37 [facility] Thin prep Papanicolaou smear with manual screening 9 5-15 [facility] Urine blood detectionOrdered By: Viet Ortez on 11-21-2023 RBC Ql (U) 10 /ul Negative [facility] Urine clarityOrdered By: Loraine Ortez on 11-21-2023 Clarity (U) Clear Clear [facility] Urine color determinationOrd ered By: Viet Ortez on 11-21-2023 Color (U) Yellow Yellow [facility] Urine glucose detectionOrder ed By: Viet Ortez on 11-21-2023 Glucose Ql (U) 100 mg/dl Normal [facility] Urine leukocyte esterase det ection by dipstickOrdered By: Viet Ortez on 11-21-2023 Leukocyte esterase Test strip Ql (U) Negative Negative [facility] Urine osmolality measurement Ordered By: Marty Bassett on 11-21-2023 Osmolality (U) [Osmolality] 367 mOsm/KG >50 [facility] Comment on above: Normal Urine Referen ce Ranges Random: 50 - 1200 mOsm/kg H20 depending on fluid intake Random: >850 mOsm/kg after 12 hour fluid restriction 24 hour: ~300 - 900 mOsm/kg H2O Urine pHOrdered By: Viet Mahoney gur on 11-21-2023 pH (U) 8.0 [pH] 5.0 - 8.0 [facility] Urine sediment bacteria coun t by microscopy (number/high power field)Ordered By: Viet Ortez on 11-21-2023 Bacteria LM.HPF (Urine sed) [#/Area] 0 /[HPF] None Seen [facility] Urine specific gravity measu rementOrdered By: Viet Ortez on 11-21-2023 Specific gravity (U) [Rel density] 1.015 1.002-1.03 0 [facility] Urine urobilinogen measureme ntOrdered By: Viet Ortez on 11-21-2023 Urobilinogen Ql (U) Normal mg/dl Normal [facility] Respiratory pathogens detect ion panel by molecular detection methodOrdered By: Michelle Hunt on 11-20-2023 Respiratory pathogens DNA and RNA panel MIGUEL ANGEL+probe (Resp) [facility] CT Head WO contraston 2023 [facility] Absolute lymphocyte countOrd ered By: Tomeka Ascencio on 10-01-2023 Lymphocytes Auto (Unsp spec) [#/Vol] 1.70 10*3/uL 0.83-4.51 [facility] Automated lymphocyte count a s percentage of total leukocytesOrdered By: Tomeka Ascencio on 10-01-2023 Lymphocytes/100 WBC Auto (Unsp spec) 38.3 % 19-41 [facility] Basophil percentageOrdered B y: Tomeka Ascencio on 10-01-2023 Basophils/100 WBC (Bld) 0.9 % 0-1 [facility] Bilirubin [Mass/Vol] 0.60 mg/dL 0.20-1.00 [facility] Comment on above: For patients on eltr ombopag therapy, use of Dimension Ethan TBIL is not recommended. Chloride [Moles/Vol] 102 mmol/L 98-107 [facility] Eosinophils/100 WBC (Bld) 2.3 % 0-5 [facility] Glucose [Mass/Vol] 95 mg/dL 74-106 [facility] Hemoglobin (Bld) [Mass/Vol] 11.6 g/dL 12.0-15.0 [facility] Monocytes/100 WBC (Bld) 11.0 % 0-10 [facility] Neutrophils (Bld) [#/Vol] 2.1 10*3/uL 2.0-7.7 [facility] Neutrophils/100 WBC (Bld) 47.5 % 47-70 [facility] Potassium [Moles/Vol] 4.0 mmol/L 3.5-5.1 [facility] Protein [Mass/Vol] 6.9 g/dL 6.4-8.2 [facility] Sodium [Moles/Vol] 132 mmol/L 136-145 [facility] WBC (Bld) [#/Vol] 4.4 10*3/uL 4.4-11.0 [facility] Determination of erythrocyte mean corpuscular volume (MCV)Ordered By: Tomeka Ascencio on 10-01-2023 MCV (RBC) [Entitic vol] 93.0 fL 81-99 [facility] Erythrocyte distribution wid th ratioOrdered By: Tomeka Ascencio on 10-01-2023 Erythrocyte distribution width (RBC) [Ratio] 14.6 % 11.6-14.6 [facility] Erythrocyte distribution wid th standard deviationOrdered By: Tomeka Ascencio on 10-01-2023 Erythrocyte distribution width (RBC) [Entitic vol] 49.8 fL 35.1-43.9 [facility] Hematocrit Auto (Bld) [Volum e fraction]Ordered By: Tomeka Ascencio on 10-01-2023 Hematocrit (Bld) [Volume fraction] 34.7 % 37-47 [facility] Immature granulocytes/100 WB C Auto (Bld)Ordered By: Tomeka Ascencio on 10-01-2023 Immature granulocytes/100 WBC (Bld) 0.000 % 0.0-0.9 [facility] Comment on above: IG% - Immature Granu locytes (promyelocytes, myelocytes and metamyelocytes) > 1% indicates that a LEFT SHIFT is Present. Laboratory - Chemistry and C hemistry - challengeOrdered By: Tomeka Ascencio on 10-01-2023 Albumin/Globulin [Mass ratio] 0.9 {ratio} 0.9-2.4 [facility] ALP [Catalytic activity/Vol] 73 U/L 45-117 [facility] ALT [Catalytic activity/Vol] 22 U/L 13-56 [facility] CO2 [Moles/Vol] 26.0 mmol/L 21.0-32.0 [facility] Globulin (S) [Mass/Vol] 3.7 g/dL 2.2-4.2 [facility] Urea nitrogen/Creatinine [Mass ratio] 15.5 mg/mg 10-20 [facility] Laboratory - Hematology and Cell countsOrdered By: Tomeka Ascencio on 10-01-2023 MCH (RBC) [Entitic mass] 31.1 pg 27.0-32.0 [facility] MCHC (RBC) [Mass/Vol] 33.4 g/dL 32-36 [facility] Nucleated RBC/100 WBC (Bld) [Ratio] 0 % 0-5 [facility] Platelets (Bld) [#/Vol] 243 10*3/uL 150-450 [facility] No Panel InformationOrdered By: Tomeka Ascencio on 10-01-2023 Estimated Creatinine Clearance Calc 36.37 ml/min [facility] Estimated GFR (MDRD) Amer 66 mL/min >60 [facility] Comment on above: GFR Calc Estimated GFR (MDRD) Non-Af Amer 55 mL/min >60 [facility] Comment on above: Non- GFR Calc Platelet mean volume Minor-Ec ker (Bld) [Entitic vol]Ordered By: Tomeka Ascencio on 10-01-2023 Platelet mean volume (Bld) [Entitic vol] 9.1 fL 6.2-12.0 [facility] RBC Auto (Bld) [#/Vol]Ordere d By: Tomeka Ascencio on 10-01-2023 RBC (Bld) [#/Vol] 3.73 10*6/uL 4.2-5.4 [facility] Serum or plasma calcium glo urement (mass/volume)Ordered By: Tomeka Ascencio on 10-01-2023 Calcium [Mass/Vol] 8.3 mg/dL 8.5-10.1 [facility] Serum or plasma creatinine m easurement (mass/volume)Ordered By: Tomeka Ascencio on 10-01-2023 Creatinine [Mass/Vol] 1.03 mg/dL 0.55-1.02 [facility] Comment on above: The validity of the calculated GFR & GFRAA in patients over 70 years has not been determined. Clinical correlation is essential. Serum or plasma urea nitroge n measurement (mass/volume)Ordered By: Tomeka Ascencio on 10-01-2023 Urea nitrogen [Mass/Vol] 16 mg/dL 7-18 [facility] Thin prep Papanicolaou smear with manual screeningOrdered By: Tomeka Ascencio on 10-01-2023 Thin prep Papanicolaou smear with manual screening 3.2 g/dL 3.2-5.0 [facility] Thin prep Papanicolaou smear with manual screening 24 U/L 15-37 [facility] Thin prep Papanicolaou smear with manual screening 4 5-15 [facility] Albumin Elph [Mass/Vol]Order ed By: Erick Blanca on 09-23-2023 Albumin [Mass/Vol] 3.2 g/dL 2.9-4.4 [facility] Basophil percentageOrdered B y: Erick Blanca on 09-23-2023 Basophil percentage Comment . [facility] Comment on above: No monoclonality det ected.Performed at: [facility] [id number] Director: Nicola Alex PhD, Phone: [phone] Interpretation of serum or p lasma protein pattern by immunofixation (narrative resultOrdered By: Erick Blanca on 09-23-2023 Protein Fractions Immunofixation Inocencio [Interp] Not Observed g/dL Not Observed [facility] No Panel InformationOrdered By: Erick Blanca on 09-23-2023 Addendum Document Comment . [facility] Comment on above: Protein electrophore sis scan will follow via computer,mail, or die holder delivery. Serum [id number] measu rement by electrophoresisOrdered By: Erick Blanca on 09-23-2023 Alpha 1 globulin Elph [Mass/Vol] 0.3 g/dL 0.0-0.4 [facility] Alpha 1 globulin Elph [Mass/Vol] 0.7 g/dL 0.4-1.0 [facility] Serum globulin measurement ( mass/volume)Ordered By: Erick Blanca on 09-23-2023 Globulin (S) [Mass/Vol] 3.0 g/dL 2.2-3.9 [facility] Serum or plasma IgA measurem ent (mass/volume)Ordered By: Erick Blanca on 09-23-2023 IgA [Mass/Vol] 247 mg/dL 64-422 [facility] Serum or plasma IgG measurem ent (mass/volume)Ordered By: Erick Blanca on 09-23-2023 IgG [Mass/Vol] 989 mg/dL 586-1602 [facility] Serum or plasma IgM measurem ent (mass/volume)Ordered By: Erick Blanca on 09-23-2023 IgM [Mass/Vol] 170 mg/dL 26-217 [facility] Serum or plasma beta globuli n measurement by electrophoresis (mass/volume)Ordered By: Erick Blanca on 09-23-2023 Beta globulin Elph [Mass/Vol] 0.9 g/dL 0.7-1.3 [facility] Serum or plasma gamma globul in measurement by electrophoresis (mass/volume)Ordered By: Erick Blanca on 09-23-2023 Gamma globulin Elph [Mass/Vol] 1.1 g/dL 0.4-1.8 [facility] Serum or plasma immunoelectr ophoresis interpretation (nominal result)Ordered By: Erick Blanca on 09-23-2023 Interpretation IEP [Interp] Comment . [facility] Comment on above: No monoclonality det ected. Thin prep Papanicolaou smear with manual screeningOrdered By: Erick Blanca on 09-23-2023 Thin prep Papanicolaou smear with manual screening 1.1 0.7-1.7 [facility] Total protein bloodOrdered B y: Erick Blanca on 09-23-2023 Protein [Mass/Vol] 6.2 g/dL 6.0-8.5 [facility] Absolute lymphocyte countOrd ered By: Cammie Barajas on 08-29-2023 Lymphocytes Auto (Unsp spec) [#/Vol] 1.53 10*3/uL 0.83-4.51 [facility] Basophil percentageOrdered B y: Cammie Barajas on 08-29-2023 Basophils/100 WBC (Bld) 1.0 % 0-1 [facility] Bilirubin [Mass/Vol] 0.90 mg/dL 0.20-1.00 [facility] Comment on above: For patients on eltr ombopag therapy, use of Dimension Ethan TBIL is not recommended. Chloride [Moles/Vol] 96 mmol/L 98-107 [facility] Eosinophils/100 WBC (Bld) 1.0 % 0-5 [facility] Glucose [Mass/Vol] 134 mg/dL 74-106 [facility] Comment on above: Fasting Glucose resu lt greater than or equal to 126 mg/dL suggests DIABETES MELLITUS per A.D.A. criteria. Neutrophils (Bld) [#/Vol] 1.8 10*3/uL 2.0-7.7 [facility] Neutrophils/100 WBC (Bld) 45.1 % 47-70 [facility] Potassium [Moles/Vol] 3.5 mmol/L 3.5-5.1 [facility] Protein [Mass/Vol] 6.8 g/dL 6.4-8.2 [facility] Sodium [Moles/Vol] 131 mmol/L 136-145 [facility] WBC (Bld) [#/Vol] 4.0 10*3/uL 4.4-11.0 [facility] Blood erythrocytes count (nu mber/volume)Ordered By: Cammie Barajas on 08-29-2023 RBC (Bld) [#/Vol] 3.97 10*6/uL 4.2-5.4 [facility] Blood hemoglobin measurement (mass/volume)Ordered By: Cammie Barajas on 08-29-2023 Hemoglobin (Bld) [Mass/Vol] 12.0 g/dL 12.0-15.0 [facility] Blood lymphocytes/100 leukoc ytesOrdered By: Cammie Barajas on 08-29-2023 Lymphocytes/100 WBC (Bld) 38.3 % 19-41 [facility] Blood monocytes/100 leukocyt esOrdered By: Cammie Barajas on 08-29-2023 Monocytes/100 WBC (Bld) 14.3 % 0-10 [facility] Blood platelet mean volumeOr dered By: Cammie Barajas on 08-29-2023 Platelet mean volume (Bld) [Entitic vol] 9.5 fL 6.2-12.0 [facility] Determination of erythrocyte mean corpuscular volume (MCV)Ordered By: Cammie Barajas on 08-29-2023 MCV (RBC) [Entitic vol] 90.9 fL 81-99 [facility] Hematocrit Auto (Bld) [Volum e fraction]Ordered By: Cammie Barajas on 08-29-2023 Hematocrit (Bld) [Volume fraction] 36.1 % 37-47 [facility] Laboratory - Chemistry and C hemistry - challengeOrdered By: Cammie Barajas on 08-29-2023 ALP [Catalytic activity/Vol] 59 U/L 45-117 [facility] ALT [Catalytic activity/Vol] 22 U/L 13-56 [facility] CO2 [Moles/Vol] 28.0 mmol/L 21.0-32.0 [facility] Globulin (S) [Mass/Vol] 3.6 g/dL 2.2-4.2 [facility] Urea nitrogen/Creatinine [Mass ratio] 16.3 mg/mg 10-20 [facility] Laboratory - Hematology and Cell countsOrdered By: Cammie Barajas on 08-29-2023 Erythrocyte distribution width (RBC) [Entitic vol] 44.8 fL 35.1-43.9 [facility] Erythrocyte distribution width (RBC) [Ratio] 13.2 % 11.6-14.6 [facility] Immature granulocytes/100 WBC (Bld) 0.300 % 0.0-0.9 [facility] Comment on above: IG% - Immature Granu locytes (promyelocytes, myelocytes and metamyelocytes) > 1% indicates that a LEFT SHIFT is Present. MCH (RBC) [Entitic mass] 30.2 pg 27.0-32.0 [facility] Nucleated RBC/100 WBC (Bld) [Ratio] 0 % 0-5 [facility] MCHC Auto (RBC) [Mass/Vol]Or dered By: Cammie Barajas on 08-29-2023 MCHC (RBC) [Mass/Vol] 33.2 g/dL 32-36 [facility] No Panel InformationOrdered By: Cammie Barajas on 08-29-2023 Estimated GFR (MDRD) Amer 89 mL/min >60 [facility] Comment on above: GFR Calc Estimated GFR (MDRD) Non-Af Amer 73 mL/min >60 [facility] Comment on above: Non- GFR Calc Troponin I High Sensitivity 4 pg/mL 3.0-54.0 [facility] Comment on above: Please Note: New Latricia t Units and Gender Specific Reference Ranges. For more information see Policy Stat Procedure Ethan High Sensitivity Troponin (TNIH) and attachments. Platelets bldOrdered By: Maximiliano Barajas on 08-29-2023 Platelets (Bld) [#/Vol] 289 10*3/uL 150-450 [facility] Serum or plasma albumin glo urement (mass/volume)Ordered By: Cammie Barajas on 08-29-2023 Albumin [Mass/Vol] 3.2 g/dL 3.2-5.0 [facility] Serum or plasma albumin/glob ulin mass ratioOrdered By: Cammie Barajas on 08-29-2023 Albumin/Globulin [Mass ratio] 0.9 {ratio} 0.9-2.4 [facility] Serum or plasma calcium glo urement (mass/volume)Ordered By: Cammie Barajas on 08-29-2023 Calcium [Mass/Vol] 8.2 mg/dL 8.5-10.1 [facility] Serum or plasma creatinine m easurement (mass/volume)Ordered By: Cammie Barajas on 08-29-2023 Creatinine [Mass/Vol] 0.80 mg/dL 0.55-1.02 [facility] Comment on above: The validity of the calculated GFR & GFRAA in patients over 70 years has not been determined. Clinical correlation is essential. Serum or plasma urea nitroge n measurement (mass/volume)Ordered By: Cammie Barajas on 08-29-2023 Urea nitrogen [Mass/Vol] 13 mg/dL 7-18 [facility] Thin prep Papanicolaou smear with manual screeningOrdered By: Cammie Barajas on 08-29-2023 Thin prep Papanicolaou smear with manual screening 21 U/L 15-37 [facility] Thin prep Papanicolaou smear with manual screening 7 5-15 [facility] Absolute lymphocyte countOrd ered By: Bakari Dietrich on 07-23-2023 Lymphocytes Auto (Unsp spec) [#/Vol] 1.23 10*3/uL 0.83-4.51 [facility] Basophil percentageOrdered B y: Bakari Dietrich on 07-23-2023 Basophils/100 WBC (Bld) 1.2 % 0-1 [facility] Chloride [Moles/Vol] 99 mmol/L 98-107 [facility] Eosinophils/100 WBC (Bld) 2.0 % 0-5 [facility] Glucose [Mass/Vol] 95 mg/dL 74-106 [facility] Neutrophils (Bld) [#/Vol] 1.6 10*3/uL 2.0-7.7 [facility] Neutrophils/100 WBC (Bld) 46.0 % 47-70 [facility] Potassium [Moles/Vol] 4.3 mmol/L 3.5-5.1 [facility] Sodium [Moles/Vol] 130 mmol/L 136-145 [facility] WBC (Bld) [#/Vol] 3.5 10*3/uL 4.4-11.0 [facility] Blood erythrocytes count (nu mber/volume)Ordered By: Bakari Dietrich on 07-23-2023 RBC (Bld) [#/Vol] 3.83 10*6/uL 4.2-5.4 [facility] Blood hemoglobin measurement (mass/volume)Ordered By: Bakari Dietrich on 07-23-2023 Hemoglobin (Bld) [Mass/Vol] 11.7 g/dL 12.0-15.0 [facility] Blood lymphocytes/100 leukoc ytesOrdered By: Bakari Dietrich on 07-23-2023 Lymphocytes/100 WBC (Bld) 35.7 % 19-41 [facility] Blood monocytes/100 leukocyt esOrdered By: Bakari Dietrich on 07-23-2023 Monocytes/100 WBC (Bld) 14.8 % 0-10 [facility] Blood platelet mean volumeOr dered By: Bakari Dietrich on 07-23-2023 Platelet mean volume (Bld) [Entitic vol] 9.1 fL 6.2-12.0 [facility] Determination of erythrocyte mean corpuscular volume (MCV)Ordered By: Bakari Dietrich on 07-23-2023 MCV (RBC) [Entitic vol] 93.0 fL 81-99 [facility] Hematocrit Auto (Bld) [Volum e fraction]Ordered By: Bakari Dietrich on 07-23-2023 Hematocrit (Bld) [Volume fraction] 35.6 % 37-47 [facility] Laboratory - Chemistry and C hemistry - challengeOrdered By: Bakari Dietrich on 07-23-2023 CO2 [Moles/Vol] 30.0 mmol/L 21.0-32.0 [facility] Urea nitrogen/Creatinine [Mass ratio] 17.3 mg/mg 10-20 [facility] Laboratory - Hematology and Cell countsOrdered By: Bakari Dietrich on 07-23-2023 Erythrocyte distribution width (RBC) [Entitic vol] 45.9 fL 35.1-43.9 [facility] Erythrocyte distribution width (RBC) [Ratio] 13.4 % 11.6-14.6 [facility] Immature granulocytes/100 WBC (Bld) 0.300 % 0.0-0.9 [facility] Comment on above: IG% - Immature Granu locytes (promyelocytes, myelocytes and metamyelocytes) > 1% indicates that a LEFT SHIFT is Present. MCH (RBC) [Entitic mass] 30.5 pg 27.0-32.0 [facility] Nucleated RBC/100 WBC (Bld) [Ratio] 0 % 0-5 [facility] MCHC Auto (RBC) [Mass/Vol]Or dered By: Bakari Dietrich on 07-23-2023 MCHC (RBC) [Mass/Vol] 32.9 g/dL 32-36 [facility] No Panel InformationOrdered By: Bakari Dietrich on 07-23-2023 Estimated Creatinine Clearance Calc 44.03 ml/min [facility] Estimated GFR (MDRD) Amer 81 mL/min >60 [facility] Comment on above: GFR Calc Estimated GFR (MDRD) Non-Af Amer 67 mL/min >60 [facility] Comment on above: Non- GFR Calc Platelets bldOrdered By: Arik Dietrich on 07-23-2023 Platelets (Bld) [#/Vol] 233 10*3/uL 150-450 [facility] Serum or plasma calcium glo urement (mass/volume)Ordered By: Bakari Dietrich on 07-23-2023 Calcium [Mass/Vol] 8.1 mg/dL 8.5-10.1 [facility] Serum or plasma creatinine m easurement (mass/volume)Ordered By: Bakari Dietrich on 07-23-2023 Creatinine [Mass/Vol] 0.87 mg/dL 0.55-1.02 [facility] Comment on above: The validity of the calculated GFR & GFRAA in patients over 70 years has not been determined. Clinical correlation is essential. Serum or plasma urea nitroge n measurement (mass/volume)Ordered By: Bakari Dietrich on 07-23-2023 Urea nitrogen [Mass/Vol] 15 mg/dL 7-18 [facility] Thin prep Papanicolaou smear with manual screeningOrdered By: Bakari Dietrich on 07-23-2023 Thin prep Papanicolaou smear with manual screening 1 5-15 [facility] Absolute lymphocyte countOrd ered By: Tanesha Britt on 07-15-2023 Lymphocytes Auto (Unsp spec) [#/Vol] 1.49 10*3/uL 0.83-4.51 [facility] Basophil percentageOrdered B y: Tanesha Britt on 07-15-2023 Basophils/100 WBC (Bld) 1.1 % 0-1 [facility] Chloride [Moles/Vol] 97 mmol/L 98-107 [facility] Eosinophils/100 WBC (Bld) 2.8 % 0-5 [facility] Glucose [Mass/Vol] 88 mg/dL 74-106 [facility] Neutrophils (Bld) [#/Vol] 1.4 10*3/uL 2.0-7.7 [facility] Neutrophils/100 WBC (Bld) 39.6 % 47-70 [facility] Potassium [Moles/Vol] 4.4 mmol/L 3.5-5.1 [facility] Sodium [Moles/Vol] 131 mmol/L 136-145 [facility] WBC (Bld) [#/Vol] 3.6 10*3/uL 4.4-11.0 [facility] Blood erythrocytes count (nu mber/volume)Ordered By: Tanesha Britt on 07-15-2023 RBC (Bld) [#/Vol] 3.93 10*6/uL 4.2-5.4 [facility] Blood hemoglobin measurement (mass/volume)Ordered By: Tanesha Britt on 07-15-2023 Hemoglobin (Bld) [Mass/Vol] 12.3 g/dL 12.0-15.0 [facility] Blood lymphocytes/100 leukoc ytesOrdered By: Tanesha Britt on 07-15-2023 Lymphocytes/100 WBC (Bld) 41.3 % 19-41 [facility] Blood monocytes/100 leukocyt esOrdered By: Tanesha Britt on 07-15-2023 Monocytes/100 WBC (Bld) 15.2 % 0-10 [facility] Blood platelet mean volumeOr dered By: Tanesha Britt on 07-15-2023 Platelet mean volume (Bld) [Entitic vol] 8.7 fL 6.2-12.0 [facility] Determination of erythrocyte mean corpuscular volume (MCV)Ordered By: Tanesha Britt on 07-15-2023 MCV (RBC) [Entitic vol] 92.9 fL 81-99 [facility] Hematocrit Auto (Bld) [Volum e fraction]Ordered By: Tanesha Britt on 07-15-2023 Hematocrit (Bld) [Volume fraction] 36.5 % 37-47 [facility] Laboratory - Chemistry and C hemistry - challengeOrdered By: Tanesha Britt on 07-15-2023 CO2 [Moles/Vol] 28.0 mmol/L 21.0-32.0 [facility] Urea nitrogen/Creatinine [Mass ratio] 16.4 mg/mg 10-20 [facility] Laboratory - Hematology and Cell countsOrdered By: Tanesha Britt on 07-15-2023 Erythrocyte distribution width (RBC) [Entitic vol] 45.9 fL 35.1-43.9 [facility] Erythrocyte distribution width (RBC) [Ratio] 13.4 % 11.6-14.6 [facility] Immature granulocytes/100 WBC (Bld) 0.000 % 0.0-0.9 [facility] Comment on above: IG% - Immature Granu locytes (promyelocytes, myelocytes and metamyelocytes) > 1% indicates that a LEFT SHIFT is Present. MCH (RBC) [Entitic mass] 31.3 pg 27.0-32.0 [facility] Nucleated RBC/100 WBC (Bld) [Ratio] 0 % 0-5 [facility] MCHC Auto (RBC) [Mass/Vol]Or dered By: Tanesha Britt on 07-15-2023 MCHC (RBC) [Mass/Vol] 33.7 g/dL 32-36 [facility] No Panel InformationOrdered By: Tanesha Britt on 07-15-2023 Estimated GFR (MDRD) Amer 76 mL/min >60 [facility] Comment on above: GFR Calc Estimated GFR (MDRD) Non-Af Amer 62 mL/min >60 [facility] Comment on above: Non- GFR Calc Platelets bldOrdered By: Aura Britt on 07-15-2023 Platelets (Bld) [#/Vol] 240 10*3/uL 150-450 [facility] Serum or plasma calcium glo urement (mass/volume)Ordered By: Tanesha Britt on 07-15-2023 Calcium [Mass/Vol] 8.5 mg/dL 8.5-10.1 [facility] Serum or plasma creatinine m easurement (mass/volume)Ordered By: Tanesha Britt on 07-15-2023 Creatinine [Mass/Vol] 0.92 mg/dL 0.55-1.02 [facility] Comment on above: The validity of the calculated GFR & GFRAA in patients over 70 years has not been determined. Clinical correlation is essential. Serum or plasma urea nitroge n measurement (mass/volume)Ordered By: Tanesha Britt on 07-15-2023 Urea nitrogen [Mass/Vol] 15 mg/dL 7-18 [facility] Thin prep Papanicolaou smear with manual screeningOrdered By: Tanesha Britt on 07-15-2023 Thin prep Papanicolaou smear with manual screening 6 5-15 [facility] Basophil percentageOrdered B y: Eagle Enciso on 05-20-2023 Chloride [Moles/Vol] 94 mmol/L 98-107 [facility] Glucose [Mass/Vol] 82 mg/dL 74-106 [facility] Potassium [Moles/Vol] 4.1 mmol/L 3.5-5.1 [facility] Sodium [Moles/Vol] 126 mmol/L 136-145 [facility] Laboratory - Chemistry and C hemistry - challengeOrdered By: Eagle Enciso on 05-20-2023 CO2 [Moles/Vol] 26.0 mmol/L 21.0-32.0 [facility] Urea nitrogen/Creatinine [Mass ratio] 23.3 mg/mg 10-20 [facility] No Panel InformationOrdered By: Eagle Enciso on 05-20-2023 Estimated GFR (MDRD) Amer 87 mL/min >60 [facility] Comment on above: GFR Calc Estimated GFR (MDRD) Non-Af Amer 72 mL/min >60 [facility] Comment on above: Non- GFR Calc Serum or plasma calcium glo urement (mass/volume)Ordered By: Eagle Enciso on 05-20-2023 Calcium [Mass/Vol] 8.4 mg/dL 8.5-10.1 [facility] Serum or plasma creatinine m easurement (mass/volume)Ordered By: Eagle Enciso on 05-20-2023 Creatinine [Mass/Vol] 0.81 mg/dL 0.55-1.02 [facility] Comment on above: The validity of the calculated GFR & GFRAA in patients over 70 years has not been determined. Clinical correlation is essential. Serum or plasma urea nitroge n measurement (mass/volume)Ordered By: Eagle Enciso on 05-20-2023 Urea nitrogen [Mass/Vol] 19 mg/dL 7-18 [facility] Thin prep Papanicolaou smear with manual screeningOrdered By: Eagle Enciso on 05-20-2023 Thin prep Papanicolaou smear with manual screening 6 5-15 [facility] Basophil percentageOrdered B y: Cammie Barajas on 04-25-2023 Chloride [Moles/Vol] 95 mmol/L 98-107 [facility] Glucose [Mass/Vol] 144 mg/dL 74-106 [facility] Comment on above: Fasting Glucose resu lt greater than or equal to 126 mg/dL suggests DIABETES MELLITUS per A.D.A. criteria. Potassium [Moles/Vol] 3.6 mmol/L 3.5-5.1 [facility] Sodium [Moles/Vol] 128 mmol/L 136-145 [facility] Laboratory - Chemistry and C hemistry - challengeOrdered By: Cammie Barajas on 04-25-2023 CO2 [Moles/Vol] 25.0 mmol/L 21.0-32.0 [facility] Urea nitrogen/Creatinine [Mass ratio] 17.8 mg/mg 10-20 [facility] No Panel InformationOrdered By: Cammie Barajas on 04-25-2023 Estimated Creatinine Clearance Calc 37.09 ml/min [facility] Estimated GFR (MDRD) Amer 98 mL/min >60 [facility] Comment on above: GFR Calc Estimated GFR (MDRD) Non-Af Amer 81 mL/min >60 [facility] Comment on above: Non- GFR Calc Serum or plasma calcium glo urement (mass/volume)Ordered By: Cammie Barajas on 04-25-2023 Calcium [Mass/Vol] 8.5 mg/dL 8.5-10.1 [facility] Serum or plasma creatinine m easurement (mass/volume)Ordered By: Cammie Barajas on 04-25-2023 Creatinine [Mass/Vol] 0.73 mg/dL 0.55-1.02 [facility] Comment on above: The validity of the calculated GFR & GFRAA in patients over 70 years has not been determined. Clinical correlation is essential. Serum or plasma urea nitroge n measurement (mass/volume)Ordered By: aCmmie Barajas on 04-25-2023 Urea nitrogen [Mass/Vol] 13 mg/dL 7-18 [facility] Thin prep Papanicolaou smear with manual screeningOrdered By: Cammie Barajas on 04-25-2023 Thin prep Papanicolaou smear with manual screening 8 5-15 [facility] Comprehensive metabolic 2000 panelon 04-20-2023 Albumin [Mass/Vol] 3.8 g/dL Low 3.9 - 4.9 g/dL [facility] ALP [Catalytic activity/Vol] 64 U/L 34 - 123 U/L [facility] ALT [Catalytic activity/Vol] 16 U/L 7 - 38 U/L [facility] Anion gap [Moles/Vol] 10 mmol/L 9 - 18 mmol/L [facility] AST [Catalytic activity/Vol] 20 U/L 13 - 35 U/L [facility] Bilirubin [Mass/Vol] 0.5 mg/dL 0.2 - 1 .3 mg/dL [facility] Calcium [Mass/Vol] 9.1 mg/dL 8.5 - 10. 2 mg/dL [facility] Chloride [Moles/Vol] 97 mmol/L 97 - 10 5 mmol/L [facility] CO2 [Moles/Vol] 24 mmol/L 22 - 30 mmol/L [facility] Creatinine [Mass/Vol] 0.89 mg/dL 0.58 - 0.96 mg/dL [facility] Estimated Glomerular Filtration Rate 65 mL/min/1.73m >=60 mL/min/1.7 3m [facility] Glucose [Mass/Vol] 90 mg/dL 74 - 99 mg/dL [facility] Potassium [Moles/Vol] 4.6 mmol/L 3.7 - 5.1 mmol/L [facility] Protein [Mass/Vol] 6.4 g/dL 6.3 - 8.0 g/dL [facility] Sodium [Moles/Vol] 131 mmol/L Low 136 - 144 mmol/L [facility] Urea nitrogen [Mass/Vol] 13 mg/dL 7 - 21 mg/dL [facility] XR Abdomen Supine and Uprigh ton 04-20-2023 IMPRESSION: Nonobstructive bowel gas pattern. Moderate stool burden. Farm Management Agent: [employer] Transcribe Date/Time: Apr 20 2023 1:46P Dictated by : BRIGHT TIAN MD This examination was interpreted and the report reviewed and electronically signed by: BRIGHT TIAN MD on Apr 20 2023 1:47PM [facility] DIVISION OF RADIOLOGY * * *Final Report* * * DATE OF EXAM: Apr 16 2023 9:01AM WOX [id number] - XR ABDOMEN 1V SUPINE / PROCEDURE REASON: Diarrhea, unspecified type * * * * Physician Interpretation * * * * TITLE: XR ABDOMEN 1V SUPINE CLINICAL INDICATION: Diarrhea TECHNIQUE: Supine frontal radiograph of the abdomen COMPARISON: None FINDINGS: Nonobstructive bowel gas pattern. Moderate stool burden scattered throughout the colon. Osseous demineralization. DIVISION OF RADIOLOGY Provider, [facility] - 04/20/2023 * * *Final Report* * * DATE OF EXAM: Apr 16 2023 9:01AM WOX [id number] - XR ABDOMEN 1V SUPINE / PROCEDURE REASON: Diarrhea, unspecified type * * * * Physician Interpretation * * * * TITLE: XR ABDOMEN 1V SUPINE CLINICAL INDICATION: Diarrhea TECHNIQUE: Supine frontal radiograph of the abdomen COMPARISON: None FINDINGS: Nonobstructive bowel gas pattern. Moderate stool burden scattered throughout the colon. Osseous demineralization. IMPRESSION IMPRESSION: Nonobstructive bowel gas pattern. Moderate stool burden. Farm Management Agent: MYRANDAB Transcribe Date/Time: Apr 20 2023 1:46P Dictated by : BRIGHT TIAN MD This examination was interpreted and the report reviewed and electronically signed by: BRIGHT TIAN MD on Apr 20 2023 1:47PM EST [facility] XR Abdomen Supine and Uprigh tOrdered By: Ccf Provider on 04-20-2023 [facility] XR Abdomen Supine and Uprigh ton 04-16-2023 Radiology Study observation (narrative) [facility] Basophil percentageOrdered B y: Erick Blanca on 04-11-2023 Bilirubin [Mass/Vol] 0.70 mg/dL 0.20-1.00 [facility] Comment on above: For patients on eltr ombopag therapy, use of Dimension Ethan TBIL is not recommended. Chloride [Moles/Vol] 100 mmol/L 98-107 [facility] Glucose [Mass/Vol] 87 mg/dL 74-106 [facility] Potassium [Moles/Vol] 4.0 mmol/L 3.5-5.1 [facility] Protein [Mass/Vol] 6.5 g/dL 6.4-8.2 [facility] Sodium [Moles/Vol] 132 mmol/L 136-145 [facility] WBC (Bld) [#/Vol] 3.2 10*3/uL 4.4-11.0 [facility] Blood erythrocytes count (nu mber/volume)Ordered By: Erick Blanca on 04-11-2023 RBC (Bld) [#/Vol] 3.71 10*6/uL 4.2-5.4 [facility] Blood hemoglobin measurement (mass/volume)Ordered By: Erick Blanca on 04-11-2023 Hemoglobin (Bld) [Mass/Vol] 12.1 g/dL 12.0-15.0 [facility] Blood platelet mean volumeOr dered By: Erick Blanca on 04-11-2023 Platelet mean volume (Bld) [Entitic vol] 9.0 fL 6.2-12.0 [facility] Determination of erythrocyte mean corpuscular volume (MCV)Ordered By: Erick Blanca on 04-11-2023 MCV (RBC) [Entitic vol] 92.7 fL 81-99 [facility] Hematocrit Auto (Bld) [Volum e fraction]Ordered By: Erick Blanca on 04-11-2023 Hematocrit (Bld) [Volume fraction] 34.4 % 37-47 [facility] Laboratory - Chemistry and C hemistry - challengeOrdered By: Erickluis Blanca on 04-11-2023 ALP [Catalytic activity/Vol] 65 U/L 45-117 [facility] ALT [Catalytic activity/Vol] 22 U/L 13-56 [facility] CO2 [Moles/Vol] 29.0 mmol/L 21.0-32.0 [facility] Cobalamin (Vitamin B12) [Mass/Vol] 317 pg/mL 211-911 [facility] Globulin (S) [Mass/Vol] 3.5 g/dL 2.2-4.2 [facility] Urea nitrogen/Creatinine [Mass ratio] 14.3 mg/mg 10-20 [facility] Laboratory - Hematology and Cell countsOrdered By: Erick Blanca on 04-11-2023 Erythrocyte distribution width (RBC) [Entitic vol] 48.2 fL 35.1-43.9 [facility] Erythrocyte distribution width (RBC) [Ratio] 14.1 % 11.6-14.6 [facility] MCH (RBC) [Entitic mass] 32.6 pg 27.0-32.0 [facility] MCHC Auto (RBC) [Mass/Vol]Or dered By: Erick Blanca on 04-11-2023 MCHC (RBC) [Mass/Vol] 35.2 g/dL 32-36 [facility] No Panel InformationOrdered By: Erick Blanca on 04-11-2023 Estimated GFR (MDRD) Amer 84 mL/min >60 [facility] Comment on above: GFR Calc Estimated GFR (MDRD) Non-Af Amer 69 mL/min >60 [facility] Comment on above: Non- GFR Calc Free Lambda Light Chains, Quant 23.4 mg/L 5.7-26.3 [facility] Thyroid Stimulating Hormone (TSH) 1.83 uIU/mL 0.358-3.74 [facility] Whole Blood Vitamin B1 Level 86.7 nmol/L 66.5-200.0 [facility] Comment on above: Performed at: - [address] [id number] Director: Nicola Alex PhD, Phone: [phone] at: - [facility] [address] [id number] Director: Skylar Nichols MD, Phone: [phone] Platelets bldOrdered By: Jassi Blanca on 04-11-2023 Platelets (Bld) [#/Vol] 230 10*3/uL 150-450 [facility] Serum immunoglobulin kappa l ight chains/immunoglobulin lambda light chains mass ratioOrdered By: Erick Blanca on 04-11-2023 Immunoglobulin light chains.kappa/Immunoglob ulin light chains.lambda (S) [Mass ratio] 1.65 0.26-1.65 [facility] Serum or plasma albumin glo urement (mass/volume)Ordered By: Erick Blanca on 04-11-2023 Albumin [Mass/Vol] 3.0 g/dL 3.2-5.0 [facility] Serum or plasma albumin/glob ulin mass ratioOrdered By: Erick Blanca on 04-11-2023 Albumin/Globulin [Mass ratio] 0.9 {ratio} 0.9-2.4 [facility] Serum or plasma calcium glo urement (mass/volume)Ordered By: Erick Blanca on 04-11-2023 Calcium [Mass/Vol] 8.1 mg/dL 8.5-10.1 [facility] Serum or plasma creatinine m easurement (mass/volume)Ordered By: Erick Blanca on 04-11-2023 Creatinine [Mass/Vol] 0.84 mg/dL 0.55-1.02 [facility] Comment on above: The validity of the calculated GFR & GFRAA in patients over 70 years has not been determined. Clinical correlation is essential. Serum or plasma folate measu rement (mass/volume)Ordered By: Erick Blanca on 04-11-2023 Folate [Mass/Vol] 13.20 ng/mL 3.1-55.4 [facility] Serum or plasma immunoglobul in kappa light chains measurement (mass/volume)Ordered By: Erick Blanca on 04-11-2023 Immunoglobulin light chains.kappa [Mass/Vol] 38.5 mg/L 3.3-19.4 [facility] Serum or plasma urea nitroge n measurement (mass/volume)Ordered By: Erick Blanca on 04-11-2023 Urea nitrogen [Mass/Vol] 12 mg/dL 7-18 [facility] Thin prep Papanicolaou smear with manual screeningOrdered By: Erick Blanca on 04-11-2023 Thin prep Papanicolaou smear with manual screening 20 U/L 15-37 [facility] Thin prep Papanicolaou smear with manual screening 3 5-15 [facility] Absolute lymphocyte countOrd ered By: Denzel Boone on 04-08-2023 Lymphocytes Auto (Unsp spec) [#/Vol] 1.82 10*3/uL 0.83-4.51 [facility] Basophil percentageOrdered B y: Denzel Boone on 04-08-2023 Basophils/100 WBC (Bld) 0.7 % 0-1 [facility] Chloride [Moles/Vol] 96 mmol/L 98-107 [facility] Eosinophils/100 WBC (Bld) 1.0 % 0-5 [facility] Glucose [Mass/Vol] 90 mg/dL 74-106 [facility] Neutrophils (Bld) [#/Vol] 1.6 10*3/uL 2.0-7.7 [facility] Neutrophils/100 WBC (Bld) 40.4 % 47-70 [facility] Potassium [Moles/Vol] 3.9 mmol/L 3.5-5.1 [facility] Sodium [Moles/Vol] 129 mmol/L 136-145 [facility] WBC (Bld) [#/Vol] 4.0 10*3/uL 4.4-11.0 [facility] Blood erythrocytes count (nu mber/volume)Ordered By: Denzel Boone on 04-08-2023 RBC (Bld) [#/Vol] 3.90 10*6/uL 4.2-5.4 [facility] Blood hemoglobin measurement (mass/volume)Ordered By: Denzel Boone on 04-08-2023 Hemoglobin (Bld) [Mass/Vol] 12.4 g/dL 12.0-15.0 [facility] Blood lymphocytes/100 leukoc ytesOrdered By: Denzel Boone on 04-08-2023 Lymphocytes/100 WBC (Bld) 45.0 % 19-41 [facility] Blood monocytes/100 leukocyt esOrdered By: Denzel Boone on 04-08-2023 Monocytes/100 WBC (Bld) 12.9 % 0-10 [facility] Blood platelet mean volumeOr dered By: Denzel Boone on 04-08-2023 Platelet mean volume (Bld) [Entitic vol] 9.9 fL 6.2-12.0 [facility] Determination of erythrocyte mean corpuscular volume (MCV)Ordered By: Denzel Boone on 04-08-2023 MCV (RBC) [Entitic vol] 93.1 fL 81-99 [facility] Hematocrit Auto (Bld) [Volum e fraction]Ordered By: Denzel Boone on 04-08-2023 Hematocrit (Bld) [Volume fraction] 36.3 % 37-47 [facility] Laboratory - Chemistry and C hemistry - challengeOrdered By: Denzel Boone on 04-08-2023 CO2 [Moles/Vol] 29.0 mmol/L 21.0-32.0 [facility] Natriuretic peptide B (Bld) [Mass/Vol] 158.3 pg/mL 0-100 [facility] Urea nitrogen/Creatinine [Mass ratio] 17.2 mg/mg 10-20 [facility] Laboratory - Hematology and Cell countsOrdered By: Denzel Boone on 04-08-2023 Erythrocyte distribution width (RBC) [Entitic vol] 48.8 fL 35.1-43.9 [facility] Erythrocyte distribution width (RBC) [Ratio] 14.2 % 11.6-14.6 [facility] Immature granulocytes/100 WBC (Bld) 0.000 % 0.0-0.9 [facility] Comment on above: IG% - Immature Granu locytes (promyelocytes, myelocytes and metamyelocytes) > 1% indicates that a LEFT SHIFT is Present. MCH (RBC) [Entitic mass] 31.8 pg 27.0-32.0 [facility] Nucleated RBC/100 WBC (Bld) [Ratio] 0 % 0-5 [facility] MCHC Auto (RBC) [Mass/Vol]Or dered By: Denzel Boone on 04-08-2023 MCHC (RBC) [Mass/Vol] 34.2 g/dL 32-36 [facility] No Panel InformationOrdered By: Denzel Boone on 04-08-2023 Troponin I High Sensitivity 4 pg/mL 3.0-54.0 [facility] Comment on above: Please Note: New Latricia t Units and Gender Specific Reference Ranges. For more information see Policy Stat Procedure Ethan High Sensitivity Troponin (TNIH) and attachments. Estimated Creatinine Clearance Calc 42.89 ml/min [facility] Estimated GFR (MDRD) Amer 80 mL/min >60 [facility] Comment on above: GFR Calc Estimated GFR (MDRD) Non-Af Amer 66 mL/min >60 [facility] Comment on above: Non- GFR Calc Platelets bldOrdered By: Hattie Boone on 04-08-2023 Platelets (Bld) [#/Vol] 248 10*3/uL 150-450 [facility] Serum or plasma calcium glo urement (mass/volume)Ordered By: Denzel oBone on 04-08-2023 Calcium [Mass/Vol] 8.3 mg/dL 8.5-10.1 [facility] Serum or plasma creatinine m easurement (mass/volume)Ordered By: Denzel Boone on 04-08-2023 Creatinine [Mass/Vol] 0.87 mg/dL 0.55-1.02 [facility] Comment on above: The validity of the calculated GFR & GFRAA in patients over 70 years has not been determined. Clinical correlation is essential. Serum or plasma urea nitroge n measurement (mass/volume)Ordered By: Denzel Boone on 04-08-2023 Urea nitrogen [Mass/Vol] 15 mg/dL 7-18 [facility] Thin prep Papanicolaou smear with manual screeningOrdered By: Denzel Boone on 04-08-2023 Thin prep Papanicolaou smear with manual screening 4 5-15 [facility] Basophil percentageOrdered B y: Dr. Enciso on 11-14-2022 Chloride [Moles/Vol] 96 mmol/L 98-107 [facility] Glucose [Mass/Vol] 87 mg/dL 74-106 [facility] Potassium [Moles/Vol] 4.2 mmol/L 3.5-5.1 [facility] Sodium [Moles/Vol] 133 mmol/L 136-145 [facility] Laboratory - Chemistry and C hemistry - challengeOrdered By: Dr. Enciso on 11-14-2022 CO2 [Moles/Vol] 30.0 mmol/L 21.0-32.0 [facility] Sodium (U) [Moles/Vol] 55 mmol/L Not Establ. [facility] Urea nitrogen/Creatinine [Mass ratio] 18.6 mg/mg 10-20 [facility] No Panel InformationOrdered By: Dr. Enciso on 11-14-2022 Estimated GFR (MDRD) Amer 88 mL/min >60 [facility] Comment on above: GFR Calc Estimated GFR (MDRD) Non-Af Amer 73 mL/min >60 [facility] Comment on above: Non- GFR Calc Serum or plasma calcium glo urement (mass/volume)Ordered By: Dr. Enciso on 11-14-2022 Calcium [Mass/Vol] 8.8 mg/dL 8.5-10.1 [facility] Serum or plasma creatinine m easurement (mass/volume)Ordered By: Dr. Enciso on 11-14-2022 Creatinine [Mass/Vol] 0.81 mg/dL 0.55-1.02 [facility] Comment on above: The validity of the calculated GFR & GFRAA in patients over 70 years has not been determined. Clinical correlation is essential. Serum or plasma urea nitroge n measurement (mass/volume)Ordered By: Dr. Enciso on 11-14-2022 Urea nitrogen [Mass/Vol] 15 mg/dL 7-18 [facility] Thin prep Papanicolaou smear with manual screeningOrdered By: Dr. Enciso on 11-14-2022 Thin prep Papanicolaou smear with manual screening 7 5-15 [facility] Urine osmolality measurement Ordered By: Dr. Enciso on 11-14-2022 Osmolality (U) [Osmolality] 288 mOsm/KG >50 [facility] Comment on above: Normal Urine Referen ce Ranges Random: 50 - 1200 mOsm/kg H20 depending on fluid intake Random: >850 mOsm/kg after 12 hour fluid restriction 24 hour: ~300 - 900 mOsm/kg H2O Absolute lymphocyte countOrd ered By: Dr. Nguyễn on 10-08-2022 Lymphocytes Auto (Unsp spec) [#/Vol] 1.63 10*3/uL 0.83-4.51 [facility] Basophil percentageOrdered B y: Dr. Nguyễn on 10-08-2022 Basophils/100 WBC (Bld) 0.8 % 0-1 [facility] Bilirubin [Mass/Vol] 0.60 mg/dL 0.20-1.00 [facility] Comment on above: For patients on eltr ombopag therapy, use of Dimension Ethan TBIL is not recommended. Chloride [Moles/Vol] 99 mmol/L 98-107 [facility] Eosinophils/100 WBC (Bld) 2.6 % 0-5 [facility] Glucose [Mass/Vol] 84 mg/dL 74-106 [facility] Neutrophils (Bld) [#/Vol] 1.7 10*3/uL 2.0-7.7 [facility] Neutrophils/100 WBC (Bld) 42.0 % 47-70 [facility] Potassium [Moles/Vol] 4.0 mmol/L 3.5-5.1 [facility] Protein [Mass/Vol] 6.6 g/dL 6.4-8.2 [facility] Sodium [Moles/Vol] 132 mmol/L 136-145 [facility] WBC (Bld) [#/Vol] 3.9 10*3/uL 4.4-11.0 [facility] Blood erythrocytes count (nu mber/volume)Ordered By: Dr. Nguyễn on 10-08-2022 RBC (Bld) [#/Vol] 3.60 10*6/uL 4.2-5.4 [facility] Blood hemoglobin measurement (mass/volume)Ordered By: Dr. Nguyễn on 10-08-2022 Hemoglobin (Bld) [Mass/Vol] 11.5 g/dL 12.0-15.0 [facility] Blood lymphocytes/100 leukoc ytesOrdered By: Dr. Nguyễn on 10-08-2022 Lymphocytes/100 WBC (Bld) 41.6 % 19-41 [facility] Blood monocytes/100 leukocyt esOrdered By: Dr. Nguyễn on 10-08-2022 Monocytes/100 WBC (Bld) 13.0 % 0-10 [facility] Blood platelet mean volumeOr dered By: Dr. Nguyễn on 10-08-2022 Platelet mean volume (Bld) [Entitic vol] 9.1 fL 6.2-12.0 [facility] Determination of erythrocyte mean corpuscular volume (MCV)Ordered By: Dr. Nguyễn on 10-08-2022 MCV (RBC) [Entitic vol] 94.2 fL 81-99 [facility] Hematocrit Auto (Bld) [Volum e fraction]Ordered By: Dr. Nguyễn on 10-08-2022 Hematocrit (Bld) [Volume fraction] 33.9 % 37-47 [facility] Laboratory - Chemistry and C hemistry - challengeOrdered By: Dr. Nguyễn on 10-08-2022 ALP [Catalytic activity/Vol] 58 U/L 45-117 [facility] ALT [Catalytic activity/Vol] 22 U/L 13-56 [facility] CO2 [Moles/Vol] 28.0 mmol/L 21.0-32.0 [facility] Globulin (S) [Mass/Vol] 3.5 g/dL 2.2-4.2 [facility] Urea nitrogen/Creatinine [Mass ratio] 19.6 mg/mg 10-20 [facility] Laboratory - Hematology and Cell countsOrdered By: Dr. Nguyễn on 10-08-2022 Erythrocyte distribution width (RBC) [Entitic vol] 46.5 fL 35.1-43.9 [facility] Erythrocyte distribution width (RBC) [Ratio] 13.4 % 11.6-14.6 [facility] Immature granulocytes/100 WBC (Bld) 0.000 % 0.0-0.9 [facility] Comment on above: IG% - Immature Granu locytes (promyelocytes, myelocytes and metamyelocytes) > 1% indicates that a LEFT SHIFT is Present. MCH (RBC) [Entitic mass] 31.9 pg 27.0-32.0 [facility] Nucleated RBC/100 WBC (Bld) [Ratio] 0 % 0-5 [facility] MCHC Auto (RBC) [Mass/Vol]Or dered By: Dr. Nguyễn on 10-08-2022 MCHC (RBC) [Mass/Vol] 33.9 g/dL 32-36 [facility] No Panel InformationOrdered By: Dr. Nguyễn on 10-08-2022 Estimated Creatinine Clearance Calc 46.55 ml/min [facility] Estimated GFR (MDRD) Amer 87 mL/min >60 [facility] Comment on above: GFR Calc Estimated GFR (MDRD) Non-Af Amer 72 mL/min >60 [facility] Comment on above: Non- GFR Calc Platelets bldOrdered By: Dr. Nguyễn on 10-08-2022 Platelets (Bld) [#/Vol] 224 10*3/uL 150-450 [facility] Serum or plasma albumin glo urement (mass/volume)Ordered By: Dr. Nguyễn on 10-08-2022 Albumin [Mass/Vol] 3.1 g/dL 3.2-5.0 [facility] Serum or plasma albumin/glob ulin mass ratioOrdered By: Dr. Nguyễn on 10-08-2022 Albumin/Globulin [Mass ratio] 0.9 {ratio} 0.9-2.4 [facility] Serum or plasma calcium glo urement (mass/volume)Ordered By: Dr. Nguyễn on 10-08-2022 Calcium [Mass/Vol] 8.3 mg/dL 8.5-10.1 [facility] Serum or plasma creatinine m easurement (mass/volume)Ordered By: Dr. Nguyễn on 10-08-2022 Creatinine [Mass/Vol] 0.82 mg/dL 0.55-1.02 [facility] Comment on above: The validity of the calculated GFR & GFRAA in patients over 70 years has not been determined. Clinical correlation is essential. Serum or plasma urea nitroge n measurement (mass/volume)Ordered By: Dr. Nguyễn on 10-08-2022 Urea nitrogen [Mass/Vol] 16 mg/dL 7-18 [facility] Thin prep Papanicolaou smear with manual screeningOrdered By: Dr. Nguyễn on 10-08-2022 Thin prep Papanicolaou smear with manual screening 23 U/L 15-37 [facility] Thin prep Papanicolaou smear with manual screening 5 5-15 [facility] 2019 CORONAVIRUSon 2 SARS-CoV-2 (COVID-19) RNA MIGUEL ANGEL+probe Ql (Resp) SARS-CoV-2 (Agent of COVID-19) Detected by RT-PCR or equivalent method. Abnormal Not Detected [facility] UA DIP, URINE (POC)on 2021 BILIRUBIN UA (POCT) Small Abnormal Negative [facility] CLARITY [facility] (POCT) [facility] COLOR UA (POCT) Yellow [facility] GLUCOSE UA (POCT) Negative Negative mg/dL [facility] HEMOGLOBIN/BLOOD UA (POCT) Moderate Abnormal Negative [facility] KETONE UA (POCT) Trace Negative mg/dL [facility] LEUKOCYTES UA (POCT) Trace Abnormal Negative [facility] NITRITE UA (POCT) Negative Negative [facility] PH UA (POCT) 6.0 4.5 - 8.0 [facility] Protein Ql (U) >=300 Abnormal Negative mg/dL [facility] SPECIFIC GRAVITY UA (POCT) 1.025 1.005 - 1.030 [facility] UROBILINOGEN UA (POCT) 0.2 E.U./dL Nilsa l E.U./dL [facility] Absolute lymphocyte countOrd ered By: Minesh Briones on 08-17-2022 Lymphocytes Auto (Unsp spec) [#/Vol] 1.90 10*3/uL 0.83-4.51 [facility] Basophil percentageOrdered B y: Minesh Briones on 08-17-2022 Basophils/100 WBC (Bld) 0.2 % 0-1 [facility] Bilirubin [Mass/Vol] 0.90 mg/dL 0.20-1.00 [facility] Comment on above: For patients on eltr ombopag therapy, use of Dimension Ethan TBIL is not recommended. Chloride [Moles/Vol] 94 mmol/L 98-107 [facility] Eosinophils/100 WBC (Bld) 0.0 % 0-5 [facility] Glucose [Mass/Vol] 144 mg/dL 74-106 [facility] Comment on above: Fasting Glucose resu lt greater than or equal to 126 mg/dL suggests DIABETES MELLITUS per A.D.A. criteria. Neutrophils (Bld) [#/Vol] 3.9 10*3/uL 2.0-7.7 [facility] Neutrophils/100 WBC (Bld) 62.5 % 47-70 [facility] Potassium [Moles/Vol] 3.4 mmol/L 3.5-5.1 [facility] Protein [Mass/Vol] 7.6 g/dL 6.4-8.2 [facility] Sodium [Moles/Vol] 127 mmol/L 136-145 [facility] WBC (Bld) [#/Vol] 6.2 10*3/uL 4.4-11.0 [facility] Blood erythrocytes count (nu mber/volume)Ordered By: Minesh Briones on 08-17-2022 RBC (Bld) [#/Vol] 4.01 10*6/uL 4.2-5.4 [facility] Blood hemoglobin measurement (mass/volume)Ordered By: Minesh Briones on 08-17-2022 Hemoglobin (Bld) [Mass/Vol] 12.8 g/dL 12.0-15.0 [facility] Blood lymphocytes/100 leukoc ytesOrdered By: Minesh Briones on 08-17-2022 Lymphocytes/100 WBC (Bld) 30.5 % 19-41 [facility] Blood monocytes/100 leukocyt esOrdered By: Minesh Briones on 08-17-2022 Monocytes/100 WBC (Bld) 6.6 % 0-10 [facility] Blood platelet mean volumeOr dered By: Minesh Briones on 08-17-2022 Platelet mean volume (Bld) [Entitic vol] 10.2 fL 6.2-12.0 [facility] Determination of erythrocyte mean corpuscular volume (MCV)Ordered By: Minesh Briones on 08-17-2022 MCV (RBC) [Entitic vol] 92.0 fL 81-99 [facility] Direct bilirubinOrdered By: Minesh Briones on 08-17-2022 Bilirubin.direct [Mass/Vol] 0.23 mg/dL 0.00-0.30 [facility] Hematocrit Auto (Bld) [Volum e fraction]Ordered By: Minesh Briones on 08-17-2022 Hematocrit (Bld) [Volume fraction] 36.9 % 37-47 [facility] Influenza virus A and B and SARS-CoV-2 (COVID-19) Ag panel - Upper respiratory specimOrdered By: Minesh Briones on 08-17-2022 SARS-CoV-2 (COVID-19) RNA MIGUEL ANGEL+probe Ql (Resp) [facility] Laboratory - Chemistry and C hemistry - challengeOrdered By: Minesh Briones on 08-17-2022 ALP [Catalytic activity/Vol] 68 U/L 45-117 [facility] ALT [Catalytic activity/Vol] 28 U/L 13-56 [facility] CO2 [Moles/Vol] 25.0 mmol/L 21.0-32.0 [facility] Globulin (S) [Mass/Vol] 4.0 g/dL 2.2-4.2 [facility] Lipase [Catalytic activity/Vol] 143 U/L 73-393 [facility] Magnesium [Mass/Vol] 2.0 mg/dL 1.6-2.6 [facility] Urea nitrogen/Creatinine [Mass ratio] 16.1 mg/mg 10-20 [facility] Laboratory - Hematology and Cell countsOrdered By: Minesh Briones on 08-17-2022 Erythrocyte distribution width (RBC) [Entitic vol] 43.2 fL 35.1-43.9 [facility] Erythrocyte distribution width (RBC) [Ratio] 12.8 % 11.6-14.6 [facility] Immature granulocytes/100 WBC (Bld) 0.200 % 0.0-0.9 [facility] Comment on above: IG% - Immature Granu locytes (promyelocytes, myelocytes and metamyelocytes) > 1% indicates that a LEFT SHIFT is Present. MCH (RBC) [Entitic mass] 31.9 pg 27.0-32.0 [facility] Nucleated RBC/100 WBC (Bld) [Ratio] 0 % 0-5 [facility] MCHC Auto (RBC) [Mass/Vol]Or dered By: Minesh Briones on 08-17-2022 MCHC (RBC) [Mass/Vol] 34.7 g/dL 32-36 [facility] No Panel InformationOrdered By: Minesh Briones on 08-17-2022 Estimated Creatinine Clearance Calc 47.22 ml/min [facility] Estimated GFR (MDRD) Amer 88 mL/min >60 [facility] Comment on above: GFR Calc Estimated GFR (MDRD) Non-Af Amer 73 mL/min >60 [facility] Comment on above: Non- GFR Calc Troponin I High Sensitivity 8 pg/mL 3.0-54.0 [facility] Comment on above: Please Note: New Latricia t Units and Gender Specific Reference Ranges. For more information see Policy Stat Procedure Ethan High Sensitivity Troponin (TNIH) and attachments. Platelets bldOrdered By: Rc Briones on 08-17-2022 Platelets (Bld) [#/Vol] 267 10*3/uL 150-450 [facility] Serum or plasma albumin glo urement (mass/volume)Ordered By: Minesh Briones on 08-17-2022 Albumin [Mass/Vol] 3.6 g/dL 3.2-5.0 [facility] Serum or plasma calcium glo urement (mass/volume)Ordered By: Minesh Briones on 08-17-2022 Calcium [Mass/Vol] 8.3 mg/dL 8.5-10.1 [facility] Serum or plasma creatinine m easurement (mass/volume)Ordered By: Minesh Briones on 08-17-2022 Creatinine [Mass/Vol] 0.81 mg/dL 0.55-1.02 [facility] Comment on above: The validity of the calculated GFR & GFRAA in patients over 70 years has not been determined. Clinical correlation is essential. Serum or plasma urea nitroge n measurement (mass/volume)Ordered By: Minesh Briones on 08-17-2022 Urea nitrogen [Mass/Vol] 13 mg/dL 7-18 [facility] Thin prep Papanicolaou smear with manual screeningOrdered By: Minesh Brinoes on 08-17-2022 Thin prep Papanicolaou smear with manual screening 25 U/L 15-37 [facility] Thin prep Papanicolaou smear with manual screening 8 5-15 [facility] US LEG VEIN DVT UNL VAS LABo n 07-11-2022 [facility] Laboratory - Microbiology an d Antimicrobial susceptibilityon 06-07-2022 SARS-CoV-2 (COVID-19) RNA MIGUEL ANGEL+probe Ql (Unsp spec) Not detected [facility] Work Phone: No Panel Informationon 06-07 Influenza Types A,B Rapid (Clinic) Not detected [facility] Work Phone: Iron measurement (mass/mass) on 05-29-2022 Iron (Unsp spec) [Mass/Mass] 97 ug/dL 50-170 [facility] Work Phone: Laboratory - Chemistry and C hemistry - challengeon 05-29-2022 Cobalamin (Vitamin B12) [Mass/Vol] 509 pg/mL 211-911 [facility] Work Phone: Serum or plasma ferritin she surement (mass/volume)on 05-29-2022 Ferritin [Mass/Vol] 20 ng/mL 8-252 [facility] Work Phone: Serum or plasma folate measu rement (mass/volume)on 05-29-2022 Folate [Mass/Vol] 12.90 ng/mL 3.1-55.4 [facility] Work Phone: [phone] Absolute lymphocyte counton 05-16-2022 Lymphocytes Auto (Unsp spec) [#/Vol] 1.03 10*3/uL 0.83-4.51 [facility] Work Phone: Basophil percentageon 2021 Basophils/100 WBC (Bld) 0.8 % 0-1 [facility] Work Phone: Chloride [Moles/Vol] 98 mmol/L 98-107 [facility] Work Phone: Eosinophils/100 WBC (Bld) 9.8 % 0-5 [facility] Work Phone: [phone] Glucose [Mass/Vol] 104 mg/dL 74-106 [facility] Work Phone: Comment on above: Fasting Glucose resu lt from 100 to 125 mg/dL suggests IMPAIRED HOMEOSTASIS per A.D.A. criteria. Neutrophils (Bld) [#/Vol] 1.6 10*3/uL 2.0-7.7 [facility] Work Phone: Neutrophils/100 WBC (Bld) 45.3 % 47-70 [facility] Work Phone: Potassium [Moles/Vol] 4.7 mmol/L 3.5-5.1 [facility] Work Phone: Sodium [Moles/Vol] 130 mmol/L 136-145 [facility] Work Phone: WBC (Bld) [#/Vol] 3.6 10*3/uL 4.4-11.0 [facility] Work Phone: [phone] Blood erythrocytes count (nu mber/volume)on 05-16-2022 RBC (Bld) [#/Vol] 3.54 10*6/uL 4.2-5.4 [facility] Work Phone: [phone] Blood hemoglobin measurement (mass/volume)on 05-16-2022 Hemoglobin (Bld) [Mass/Vol] 11.8 g/dL 12.0-15.0 [facility] Work Phone: Blood lymphocytes/100 leukoc yteson 05-16-2022 Lymphocytes/100 WBC (Bld) 28.9 % 19-41 [facility] Work Phone: Blood monocytes/100 leukocyt eson 05-16-2022 Monocytes/100 WBC (Bld) 14.9 % 0-10 [facility] Work Phone: [phone] Blood platelet mean volumeon 05-16-2022 Platelet mean volume (Bld) [Entitic vol] 9.7 fL 6.2-12.0 [facility] Work Phone: [phone] Determination of erythrocyte mean corpuscular volume (MCV)on 05-16-2022 MCV (RBC) [Entitic vol] 94.9 fL 81-99 [facility] Work Phone: [phone] Hematocrit Auto (Bld) [Volum e fraction]on 05-16-2022 Hematocrit (Bld) [Volume fraction] 33.6 % 37-47 [facility] Work Phone: [phone] Laboratory - Chemistry and C hemistry - challengeon 05-16-2022 CO2 [Moles/Vol] 26.0 mmol/L 21.0-32.0 [facility] Work Phone: [phone] Urea nitrogen/Creatinine [Mass ratio] 16.4 mg/mg 10-20 [facility] Work Phone: Laboratory - Hematology and Cell countson 05-16-2022 Erythrocyte distribution width (RBC) [Entitic vol] 48.6 fL 35.1-43.9 [facility] Work Phone: Erythrocyte distribution width (RBC) [Ratio] 13.7 % 11.6-14.6 [facility] Work Phone: Immature granulocytes/100 WBC (Bld) 0.300 % 0.0-0.9 [facility] Work Phone: Comment on above: IG% - Immature Granu locytes (promyelocytes, myelocytes and metamyelocytes) > 1% indicates that a LEFT SHIFT is Present. MCH (RBC) [Entitic mass] 33.3 pg 27.0-32.0 [facility] Work Phone: Nucleated RBC/100 WBC (Bld) [Ratio] 0 % 0-5 [facility] Work Phone: MCHC Auto (RBC) [Mass/Vol]on 05-16-2022 MCHC (RBC) [Mass/Vol] 35.1 g/dL 32-36 [facility] Work Phone: No Panel Informationon 05-16 Estimated GFR (MDRD) Amer 76 mL/min >60 [facility] Work Phone: Comment on above: GFR Calc Estimated GFR (MDRD) Non-Af Amer 63 mL/min >60 [facility] Work Phone: Comment on above: Non- GFR Calc Platelets bldon 05-16-2022 Platelets (Bld) [#/Vol] 255 10*3/uL 150-450 [facility] Work Phone: Serum or plasma calcium glo urement (mass/volume)on 05-16-2022 Calcium [Mass/Vol] 8.7 mg/dL 8.5-10.1 [facility] Work Phone: Serum or plasma creatinine m easurement (mass/volume)on 05-16-2022 Creatinine [Mass/Vol] 0.91 mg/dL 0.55-1.02 [facility] Work Phone: Comment on above: The validity of the calculated GFR & GFRAA in patients over 70 years has not been determined. Clinical correlation is essential. Serum or plasma urea nitroge n measurement (mass/volume)on 05-16-2022 Urea nitrogen [Mass/Vol] 15 mg/dL 7-18 [facility] Work Phone: [phone] Thin prep Papanicolaou smear with manual screeningon 05-16-2022 Thin prep Papanicolaou smear with manual screening 6 5-15 [facility] Work Phone: [phone] XR KNEE GENERAL 4V AP BOTH/P A BOTH/LAT/MERC RIGHTon 04-21-2022 [facility] Absolute lymphocyte counton 03-18-2022 Lymphocytes Auto (Unsp spec) [#/Vol] 1.99 10*3/uL 0.83-4.51 [facility] Work Phone: [phone] Basophil percentageon 2021 Basophils/100 WBC (Bld) 0.7 % 0-1 [facility] Work Phone: Chloride [Moles/Vol] 96 mmol/L 98-107 [facility] Work Phone: Eosinophils/100 WBC (Bld) 2.1 % 0-5 [facility] Work Phone: [phone] Glucose [Mass/Vol] 117 mg/dL 74-106 [facility] Work Phone: [phone] Comment on above: Fasting Glucose resu lt from 100 to 125 mg/dL suggests IMPAIRED HOMEOSTASIS per A.D.A. criteria. Neutrophils (Bld) [#/Vol] 1.7 10*3/uL 2.0-7.7 [facility] Work Phone: Neutrophils/100 WBC (Bld) 38.9 % 47-70 [facility] Work Phone: [phone] Potassium [Moles/Vol] 4.2 mmol/L 3.5-5.1 [facility] Work Phone: [phone] Sodium [Moles/Vol] 130 mmol/L 136-145 [facility] Work Phone: [phone] WBC (Bld) [#/Vol] 4.3 10*3/uL 4.4-11.0 [facility] Work Phone: Blood erythrocytes count (nu mber/volume)on 03-18-2022 RBC (Bld) [#/Vol] 3.65 10*6/uL 4.2-5.4 [facility] Work Phone: Blood hemoglobin measurement (mass/volume)on 03-18-2022 Hemoglobin (Bld) [Mass/Vol] 11.8 g/dL 12.0-15.0 [facility] Work Phone: Blood lymphocytes/100 leukoc yteson 03-18-2022 Lymphocytes/100 WBC (Bld) 46.8 % 19-41 [facility] Work Phone: Blood monocytes/100 leukocyt eson 03-18-2022 Monocytes/100 WBC (Bld) 11.3 % 0-10 [facility] Work Phone: Blood platelet mean volumeon 03-18-2022 Platelet mean volume (Bld) [Entitic vol] 10.0 fL 6.2-12.0 [facility] Work Phone: Determination of erythrocyte mean corpuscular volume (MCV)on 03-18-2022 MCV (RBC) [Entitic vol] 95.6 fL 81-99 [facility] Work Phone: Hematocrit Auto (Bld) [Volum e fraction]on 03-18-2022 Hematocrit (Bld) [Volume fraction] 34.9 % 37-47 [facility] Work Phone: [phone] Laboratory - Chemistry and C hemistry - challengeon 03-18-2022 CO2 [Moles/Vol] 28.0 mmol/L 21.0-32.0 [facility] Work Phone: Urea nitrogen/Creatinine [Mass ratio] 16.8 mg/mg 10-20 [facility] Work Phone: Laboratory - Hematology and Cell countson 03-18-2022 Erythrocyte distribution width (RBC) [Entitic vol] 45.9 fL 35.1-43.9 [facility] Work Phone: Erythrocyte distribution width (RBC) [Ratio] 13.0 % 11.6-14.6 [facility] Work Phone: Immature granulocytes/100 WBC (Bld) 0.200 % 0.0-0.9 [facility] Work Phone: Comment on above: IG% - Immature Granu locytes (promyelocytes, myelocytes and metamyelocytes) > 1% indicates that a LEFT SHIFT is Present. MCH (RBC) [Entitic mass] 32.3 pg 27.0-32.0 [facility] Work Phone: Nucleated RBC/100 WBC (Bld) [Ratio] 0 % 0-5 [facility] Work Phone: MCHC Auto (RBC) [Mass/Vol]on 03-18-2022 MCHC (RBC) [Mass/Vol] 33.8 g/dL 32-36 [facility] Work Phone: No Panel Informationon 03-18 Estimated GFR (MDRD) Amer 78 mL/min >60 [facility] Work Phone: Comment on above: GFR Calc Estimated GFR (MDRD) Non-Af Amer 65 mL/min >60 [facility] Work Phone: Comment on above: Non- GFR Calc Thyroid Stimulating Hormone (TSH) 1.61 uIU/mL 0.358-3.74 [facility] Work Phone: Platelets bldon 03-18-2022 Platelets (Bld) [#/Vol] 230 10*3/uL 150-450 [facility] Work Phone: Serum or plasma calcitriol m easurement (mass/volume)on 03-18-2022 1,25-dihydroxyvitamin D3 [Mass/Vol] 57.2 pg/mL 24.8-81.5 [facility] Work Phone: Comment on above: Please note refere nce interval changePerformed at: - Lab[address] [id number] Director: Skylar Nichols MD, Phone: [phone] Serum or plasma calcium glo urement (mass/volume)on 03-18-2022 Calcium [Mass/Vol] 8.7 mg/dL 8.5-10.1 [facility] Work Phone: Serum or plasma creatinine m easurement (mass/volume)on 03-18-2022 Creatinine [Mass/Vol] 0.89 mg/dL 0.55-1.02 [facility] Work Phone: Comment on above: The validity of the calculated GFR & GFRAA in patients over 70 years has not been determined. Clinical correlation is essential. Serum or plasma urea nitroge n measurement (mass/volume)on 03-18-2022 Urea nitrogen [Mass/Vol] 15 mg/dL 7-18 [facility] Work Phone: Thin prep Papanicolaou smear with manual screeningon 03-18-2022 Thin prep Papanicolaou smear with manual screening 6 5-15 [facility] Work Phone: Basophil percentageon 2021 Sodium [Moles/Vol] 129 mmol/L 136-145 [facility] Work Phone: Basophil percentageon 2021 Chloride [Moles/Vol] 97 mmol/L 98-107 [facility] Work Phone: Glucose [Mass/Vol] 108 mg/dL 74-106 [facility] Work Phone: Comment on above: Fasting Glucose resu lt from 100 to 125 mg/dL suggests IMPAIRED HOMEOSTASIS per A.D.A. criteria. Potassium [Moles/Vol] 4.3 mmol/L 3.5-5.1 [facility] Work Phone: Sodium [Moles/Vol] 130 mmol/L 136-145 [facility] Work Phone: Laboratory - Chemistry and C hemistry - challengeon 11-16-2021 CO2 [Moles/Vol] 28.0 mmol/L 21.0-32.0 [facility] Work Phone: Urea nitrogen/Creatinine [Mass ratio] 20.9 mg/mg 10-20 [facility] Work Phone: No Panel Informationon 11-16 Estimated GFR (MDRD) Amer 77 mL/min >60 [facility] Work Phone: Comment on above: GFR Calc Estimated GFR (MDRD) Non-Af Amer 63 mL/min >60 [facility] Work Phone: Comment on above: Non- GFR Calc Serum or plasma calcium glo urement (mass/volume)on 11-16-2021 Calcium [Mass/Vol] 8.5 mg/dL 8.5-10.1 [facility] Work Phone: Serum or plasma cortisol she surement (mass/volume)on 11-16-2021 Cortisol [Mass/Vol] 13.70 ug/dL 3.44-22.45 [facility] Work Phone: Comment on above: Adult (AM) 5.27 - 22 .45 ug/dL Adult (PM) 3.44 - 16.76 ug/dLPlease note revised CORTISOL reference range effective 2019. Serum or plasma creatinine m easurement (mass/volume)on 11-16-2021 Creatinine [Mass/Vol] 0.91 mg/dL 0.55-1.02 [facility] Work Phone: Comment on above: The validity of the calculated GFR & GFRAA in patients over 70 years has not been determined. Clinical correlation is essential. Serum or plasma urea nitroge n measurement (mass/volume)on 11-16-2021 Urea nitrogen [Mass/Vol] 19 mg/dL 7-18 [facility] Work Phone: Thin prep Papanicolaou smear with manual screeningon 11-16-2021 Thin prep Papanicolaou smear with manual screening 5 5-15 [facility] Work Phone: Absolute lymphocyte counton 11-14-2021 Lymphocytes Auto (Unsp spec) [#/Vol] 1.64 10*3/uL 0.83-4.51 [facility] Work Phone: Basophil percentageon 2021 Basophils/100 WBC (Bld) 1.1 % 0-1 [facility] Work Phone: [phone] Bilirubin [Mass/Vol] 0.70 mg/dL 0.20-1.00 [facility] Work Phone: [phone] Comment on above: For patients on eltr ombopag therapy, use of Dimension Ethan TBIL is not recommended. Chloride [Moles/Vol] 99 mmol/L 98-107 [facility] Work Phone: Cholesterol [Mass/Vol] 181 mg/dL <200 [facility] Work Phone: [phone] Comment on above: <200 mg/dL Desirable 200-240 mg/dL Borderline >240 mg/dL High Risk Eosinophils/100 WBC (Bld) 6.7 % 0-5 [facility] Work Phone: [phone] Glucose [Mass/Vol] 87 mg/dL 74-106 [facility] Work Phone: Neutrophils (Bld) [#/Vol] 1.1 10*3/uL 2.0-7.7 [facility] Work Phone: Neutrophils/100 WBC (Bld) 31.3 % 47-70 [facility] Work Phone: [phone] Potassium [Moles/Vol] 4.1 mmol/L 3.5-5.1 [facility] Work Phone: [phone] Protein [Mass/Vol] 6.6 g/dL 6.4-8.2 [facility] Work Phone: Sodium [Moles/Vol] 133 mmol/L 136-145 [facility] Work Phone: [phone] Triglyceride [Mass/Vol] 62 mg/dL [facility] Work Phone: [phone] Comment on above: The drugs N-Acetylcy steine and Metamizole may falsely depress this assay.Serum Triglycerides Reference Interval Normal <150 mg/dL Borderline high 150 - 199 mg/dL High 200 - 499 mg/dL Very High > or = 500 mg/dL WBC (Bld) [#/Vol] 3.6 10*3/uL 4.4-11.0 [facility] Work Phone: [phone] Blood erythrocytes count (nu mber/volume)on 11-14-2021 RBC (Bld) [#/Vol] 3.83 10*6/uL 4.2-5.4 [facility] Work Phone: [phone] Blood hemoglobin measurement (mass/volume)on 11-14-2021 Hemoglobin (Bld) [Mass/Vol] 12.3 g/dL 12.0-15.0 [facility] Work Phone: Blood lymphocytes/100 leukoc yteson 11-14-2021 Lymphocytes/100 WBC (Bld) 45.8 % 19-41 [facility] Work Phone: Blood monocytes/100 leukocyt eson 11-14-2021 Monocytes/100 WBC (Bld) 14.5 % 0-10 [facility] Work Phone: [phone] Blood platelet mean volumeon 11-14-2021 Platelet mean volume (Bld) [Entitic vol] 10.3 fL 6.2-12.0 [facility] Work Phone: [phone] Determination of erythrocyte mean corpuscular volume (MCV)on 11-14-2021 MCV (RBC) [Entitic vol] 92.7 fL 81-99 [facility] Work Phone: [phone] Hematocrit Auto (Bld) [Volum e fraction]on 11-14-2021 Hematocrit (Bld) [Volume fraction] 35.5 % 37-47 [facility] Work Phone: [phone] Laboratory - Chemistry and C hemistry - challengeon 11-14-2021 ALP [Catalytic activity/Vol] 72 U/L 45-117 [facility] Work Phone: [phone] ALT [Catalytic activity/Vol] 32 U/L 13-56 [facility] Work Phone: [phone] CO2 [Moles/Vol] 31.0 mmol/L 21.0-32.0 [facility] Work Phone: [phone] Globulin (S) [Mass/Vol] 3.6 g/dL 2.2-4.2 [facility] Work Phone: Urea nitrogen/Creatinine [Mass ratio] 21.9 mg/mg 10-20 [facility] Work Phone: Laboratory - Hematology and Cell countson 11-14-2021 Erythrocyte distribution width (RBC) [Entitic vol] 45.9 fL 35.1-43.9 [facility] Work Phone: Erythrocyte distribution width (RBC) [Ratio] 13.5 % 11.6-14.6 [facility] Work Phone: Immature granulocytes/100 WBC (Bld) 0.600 % 0.0-0.9 [facility] Work Phone: Comment on above: IG% - Immature Granu locytes (promyelocytes, myelocytes and metamyelocytes) > 1% indicates that a LEFT SHIFT is Present. MCH (RBC) [Entitic mass] 32.1 pg 27.0-32.0 [facility] Work Phone: Nucleated RBC/100 WBC (Bld) [Ratio] 0 % 0-5 [facility] Work Phone: MCHC Auto (RBC) [Mass/Vol]on 11-14-2021 MCHC (RBC) [Mass/Vol] 34.6 g/dL 32-36 [facility] Work Phone: No Panel Informationon 11-14 Estimated GFR (MDRD) Amer 98 mL/min >60 [facility] Work Phone: Comment on above: GFR Calc Estimated GFR (MDRD) Non-Af Amer 81 mL/min >60 [facility] Work Phone: Comment on above: Non- GFR Calc Platelets bldon 11-14-2021 Platelets (Bld) [#/Vol] 244 10*3/uL 150-450 [facility] Work Phone: Serum or plasma albumin glo urement (mass/volume)on 11-14-2021 Albumin [Mass/Vol] 3.0 g/dL 3.2-5.0 [facility] Work Phone: Serum or plasma albumin/glob ulin mass ratioon 11-14-2021 Albumin/Globulin [Mass ratio] 0.8 {ratio} 0.9-2.4 [facility] Work Phone: Serum or plasma calcium glo urement (mass/volume)on 11-14-2021 Calcium [Mass/Vol] 8.3 mg/dL 8.5-10.1 [facility] Work Phone: Serum or plasma cholesterol in HDL measurement (mass/volume)on 11-14-2021 Cholesterol in HDL [Mass/Vol] 85 mg/dL [facility] Work Phone: Comment on above: The drugs N-Acetylcy steine and Metamizole may falsely depress this assay. Reference Range HDL <40 mg/dL Low HDL Cholesterol HDL >or= 60 mg/dL High HDL Cholesterol Serum or plasma cholesterol in VLDL measurement (mass/volume)on 11-14-2021 Cholesterol in VLDL [Mass/Vol] 12 mg/dL 5-40 [facility] Work Phone: Serum or plasma creatinine m easurement (mass/volume)on 11-14-2021 Creatinine [Mass/Vol] 0.73 mg/dL 0.55-1.02 [facility] Work Phone: Comment on above: The validity of the calculated GFR & GFRAA in patients over 70 years has not been determined. Clinical correlation is essential. Serum or plasma low density lipoprotein (LDL) cholesterol measurement (mass/volume)on 11-14-2021 Cholesterol in LDL [Mass/Vol] 84 mg/dL 0-130 [facility] Work Phone: Serum or plasma urea nitroge n measurement (mass/volume)on 11-14-2021 Urea nitrogen [Mass/Vol] 16 mg/dL 7-18 [facility] Work Phone: Thin prep Papanicolaou smear with manual screeningon 11-14-2021 Thin prep Papanicolaou smear with manual screening 26 U/L 15-37 [facility] Work Phone: Thin prep Papanicolaou smear with manual screening 3 5-15 [facility] Work Phone: No Panel Informationon 10-25 Troponin I High Sensitivity 12 pg/mL 3.0-54.0 [facility] Work Phone: Comment on above: Please Note: New Latricia t Units and Gender Specific Reference Ranges. For more information see Policy Stat Procedure Ethan High Sensitivity Troponin (TNIH) and attachments. Absolute lymphocyte counton 10-24-2021 Lymphocytes Auto (Unsp spec) [#/Vol] 3.19 10*3/uL 0.83-4.51 [facility] Work Phone: Basophil percentageon 2021 Basophils/100 WBC (Bld) 0.6 % 0-1 [facility] Work Phone: Bilirubin [Mass/Vol] 0.80 mg/dL 0.20-1.00 [facility] Work Phone: Comment on above: For patients on eltr ombopag therapy, use of Dimension Ethan TBIL is not recommended. Chloride [Moles/Vol] 94 mmol/L 98-107 [facility] Work Phone: Eosinophils/100 WBC (Bld) 2.3 % 0-5 [facility] Work Phone: Glucose [Mass/Vol] 114 mg/dL 74-106 [facility] Work Phone: Comment on above: Fasting Glucose resu lt from 100 to 125 mg/dL suggests IMPAIRED HOMEOSTASIS per A.D.A. criteria. Neutrophils (Bld) [#/Vol] 2.7 10*3/uL 2.0-7.7 [facility] Work Phone: Neutrophils/100 WBC (Bld) 39.8 % 47-70 [facility] Work Phone: Potassium [Moles/Vol] 3.5 mmol/L 3.5-5.1 [facility] Work Phone: Protein [Mass/Vol] 7.5 g/dL 6.4-8.2 [facility] Work Phone: Sodium [Moles/Vol] 129 mmol/L 136-145 [facility] Work Phone: WBC (Bld) [#/Vol] 6.9 10*3/uL 4.4-11.0 [facility] Work Phone: Blood erythrocytes count (nu mber/volume)on 10-24-2021 RBC (Bld) [#/Vol] 3.99 10*6/uL 4.2-5.4 [facility] Work Phone: Blood hemoglobin measurement (mass/volume)on 10-24-2021 Hemoglobin (Bld) [Mass/Vol] 13.0 g/dL 12.0-15.0 [facility] Work Phone: Blood lymphocytes/100 leukoc yteson 10-24-2021 Lymphocytes/100 WBC (Bld) 46.4 % 19-41 [facility] Work Phone: Blood monocytes/100 leukocyt eson 10-24-2021 Monocytes/100 WBC (Bld) 10.8 % 0-10 [facility] Work Phone: Blood platelet mean volumeon 10-24-2021 Platelet mean volume (Bld) [Entitic vol] 9.8 fL 6.2-12.0 [facility] Work Phone: [phone] Determination of erythrocyte mean corpuscular volume (MCV)on 10-24-2021 MCV (RBC) [Entitic vol] 94.2 fL 81-99 [facility] Work Phone: Direct bilirubinon 2 Bilirubin.direct [Mass/Vol] 0.21 mg/dL 0.00-0.30 [facility] Work Phone: Hematocrit Auto (Bld) [Volum e fraction]on 10-24-2021 Hematocrit (Bld) [Volume fraction] 37.6 % 37-47 [facility] Work Phone: [phone] Laboratory - Chemistry and C hemistry - challengeon 02-10-2022 ALP [Catalytic activity/Vol] 61 U/L 45-117 [facility] Work Phone: ALT [Catalytic activity/Vol] 30 U/L 13-56 [facility] Work Phone: CO2 [Moles/Vol] 27.0 mmol/L 21.0-32.0 [facility] Work Phone: Globulin (S) [Mass/Vol] 3.9 g/dL 2.2-4.2 [facility] Work Phone: [phone] Lipase [Catalytic activity/Vol] 156 U/L 73-393 [facility] Work Phone: [phone] Magnesium [Mass/Vol] 2.2 mg/dL [facility] Work Phone: Comment on above: Performed at: [place] [id number] Director: Nicola Alex PhD, Phone: [phone] Urea nitrogen/Creatinine [Mass ratio] 21.0 mg/mg 10-20 [facility] Work Phone: Laboratory - Hematology and Cell countson 10-24-2021 Erythrocyte distribution width (RBC) [Entitic vol] 45.5 fL 35.1-43.9 [facility] Work Phone: Erythrocyte distribution width (RBC) [Ratio] 13.2 % 11.6-14.6 [facility] Work Phone: Immature granulocytes/100 WBC (Bld) 0.100 % 0.0-0.9 [facility] Work Phone: Comment on above: IG% - Immature Granu locytes (promyelocytes, myelocytes and metamyelocytes) > 1% indicates that a LEFT SHIFT is Present. MCH (RBC) [Entitic mass] 32.6 pg 27.0-32.0 [facility] Work Phone: Nucleated RBC/100 WBC (Bld) [Ratio] 0 % 0-5 [facility] Work Phone: MCHC Auto (RBC) [Mass/Vol]on 10-24-2021 MCHC (RBC) [Mass/Vol] 34.6 g/dL 32-36 [facility] Work Phone: No Panel Informationon 10-24 Estimated Creatinine Clearance Calc 40.90 ml/min [facility] Work Phone: Estimated GFR (MDRD) Amer 69 mL/min >60 [facility] Work Phone: Comment on above: GFR Calc Estimated GFR (MDRD) Non-Af Amer 57 mL/min >60 [facility] Work Phone: Comment on above: Non- GFR Calc Platelets bldon 10-24-2021 Platelets (Bld) [#/Vol] 240 10*3/uL 150-450 [facility] Work Phone: Serum or plasma albumin glo urement (mass/volume)on 10-24-2021 Albumin [Mass/Vol] 3.6 g/dL 3.2-5.0 [facility] Work Phone: Serum or plasma calcium glo urement (mass/volume)on 10-24-2021 Calcium [Mass/Vol] 8.9 mg/dL 8.5-10.1 [facility] Work Phone: Serum or plasma creatinine m easurement (mass/volume)on 10-24-2021 Creatinine [Mass/Vol] 1.00 mg/dL 0.55-1.02 [facility] Work Phone: Comment on above: The validity of the calculated GFR & GFRAA in patients over 70 years has not been determined. Clinical correlation is essential. Serum or plasma urea nitroge n measurement (mass/volume)on 10-24-2021 Urea nitrogen [Mass/Vol] 21 mg/dL 7-18 [facility] Work Phone: Thin prep Papanicolaou smear with manual screeningon 10-24-2021 Thin prep Papanicolaou smear with manual screening 21 U/L 15-37 [facility] Work Phone: Thin prep Papanicolaou smear with manual screening 8 5-15 [facility] Work Phone: Absolute lymphocyte counton 09-26-2021 Lymphocytes Auto (Unsp spec) [#/Vol] 1.84 10*3/uL 0.83-4.51 [facility] Work Phone: Basophil percentageon 2021 Basophils/100 WBC (Bld) 0.7 % 0-1 [facility] Work Phone: Bilirubin [Mass/Vol] 0.80 mg/dL 0.20-1.00 [facility] Work Phone: Comment on above: For patients on eltr ombopag therapy, use of Dimension Ethan TBIL is not recommended. Chloride [Moles/Vol] 100 mmol/L 98-107 [facility] Work Phone: Eosinophils/100 WBC (Bld) 3.0 % 0-5 [facility] Work Phone: Glucose [Mass/Vol] 86 mg/dL 74-106 [facility] Work Phone: Neutrophils (Bld) [#/Vol] 1.8 10*3/uL 2.0-7.7 [facility] Work Phone: Neutrophils/100 WBC (Bld) 41.1 % 47-70 [facility] Work Phone: Potassium [Moles/Vol] 4.0 mmol/L 3.5-5.1 [facility] Work Phone: Protein [Mass/Vol] 6.9 g/dL 6.4-8.2 [facility] Work Phone: Sodium [Moles/Vol] 135 mmol/L 136-145 [facility] Work Phone: WBC (Bld) [#/Vol] 4.3 10*3/uL 4.4-11.0 [facility] Work Phone: Blood erythrocytes count (nu mber/volume)on 09-26-2021 RBC (Bld) [#/Vol] 3.86 10*6/uL 4.2-5.4 [facility] Work Phone: Blood hemoglobin measurement (mass/volume)on 09-26-2021 Hemoglobin (Bld) [Mass/Vol] 12.1 g/dL 12.0-15.0 [facility] Work Phone: Blood lymphocytes/100 leukoc yteson 09-26-2021 Lymphocytes/100 WBC (Bld) 42.5 % 19-41 [facility] Work Phone: Blood monocytes/100 leukocyt eson 09-26-2021 Monocytes/100 WBC (Bld) 12.5 % 0-10 [facility] Work Phone: [phone] Blood platelet mean volumeon 09-26-2021 Platelet mean volume (Bld) [Entitic vol] 8.9 fL 6.2-12.0 [facility] Work Phone: Determination of erythrocyte mean corpuscular volume (MCV)on 09-26-2021 MCV (RBC) [Entitic vol] 93.8 fL 81-99 [facility] Work Phone: [phone] Hematocrit Auto (Bld) [Volum e fraction]on 09-26-2021 Hematocrit (Bld) [Volume fraction] 36.2 % 37-47 [facility] Work Phone: [phone] Laboratory - Chemistry and C hemistry - challengeon 09-26-2021 ALP [Catalytic activity/Vol] 57 U/L 45-117 [facility] Work Phone: ALT [Catalytic activity/Vol] 26 U/L 13-56 [facility] Work Phone: [phone] CO2 [Moles/Vol] 29.0 mmol/L 21.0-32.0 [facility] Work Phone: [phone] Globulin (S) [Mass/Vol] 3.7 g/dL 2.2-4.2 [facility] Work Phone: [phone] Urea nitrogen/Creatinine [Mass ratio] 20.5 mg/mg 10-20 [facility] Work Phone: [phone] Laboratory - Hematology and Cell countson 09-26-2021 Erythrocyte distribution width (RBC) [Entitic vol] 46.7 fL 35.1-43.9 [facility] Work Phone: Erythrocyte distribution width (RBC) [Ratio] 13.6 % 11.6-14.6 [facility] Work Phone: Immature granulocytes/100 WBC (Bld) 0.200 % 0.0-0.9 [facility] Work Phone: Comment on above: IG% - Immature Granu locytes (promyelocytes, myelocytes and metamyelocytes) > 1% indicates that a LEFT SHIFT is Present. MCH (RBC) [Entitic mass] 31.3 pg 27.0-32.0 [facility] Work Phone: Nucleated RBC/100 WBC (Bld) [Ratio] 0 % 0-5 [facility] Work Phone: MCHC Auto (RBC) [Mass/Vol]on 09-26-2021 MCHC (RBC) [Mass/Vol] 33.4 g/dL 32-36 [facility] Work Phone: No Panel Informationon 09-26 Estimated Creatinine Clearance Calc 45.29 ml/min [facility] Work Phone: Estimated GFR (MDRD) Amer 80 mL/min >60 [facility] Work Phone: Comment on above: GFR Calc Estimated GFR (MDRD) Non-Af Amer 66 mL/min >60 [facility] Work Phone: Comment on above: Non- GFR Calc Platelets bldon 09-26-2021 Platelets (Bld) [#/Vol] 230 10*3/uL 150-450 [facility] Work Phone: Serum or plasma albumin glo urement (mass/volume)on 09-26-2021 Albumin [Mass/Vol] 3.2 g/dL 3.2-5.0 [facility] Work Phone: Serum or plasma albumin/glob ulin mass ratioon 09-26-2021 Albumin/Globulin [Mass ratio] 0.9 {ratio} 0.9-2.4 [facility] Work Phone: Serum or plasma calcium glo urement (mass/volume)on 09-26-2021 Calcium [Mass/Vol] 8.5 mg/dL 8.5-10.1 [facility] Work Phone: Serum or plasma creatinine m easurement (mass/volume)on 09-26-2021 Creatinine [Mass/Vol] 0.88 mg/dL 0.55-1.02 [facility] Work Phone: Comment on above: The validity of the calculated GFR & GFRAA in patients over 70 years has not been determined. Clinical correlation is essential. Serum or plasma urea nitroge n measurement (mass/volume)on 09-26-2021 Urea nitrogen [Mass/Vol] 18 mg/dL 7-18 [facility] Work Phone: Thin prep Papanicolaou smear with manual screeningon 09-26-2021 Thin prep Papanicolaou smear with manual screening 18 U/L 15-37 [facility] Work Phone: Thin prep Papanicolaou smear with manual screening 6 5-15 [facility] Work Phone: XR Knee - right 4 Viewson IMPRESSION: Right knee osteoarthritis with chondrocalcinosis and small joint effusion. Farm Management Agent: BO Transcribe Date/Time: Mar 26 2021 3:04P Dictated by : Catalina LONGO MD This examination was interpreted and the report reviewed and electronically signed by: Catalina LONGO MD on Mar 26 2021 3:08PM [facility] DIVISION OF RADIOLOGY * * *Final Report* * * DATE OF EXAM: Mar 26 2021 2:42PM WOX 5203 - XR KNEE 4V AP/PA BOTH+LAT/OSCAR RT / PROCEDURE REASON: Acute pain of right knee * * * * Physician Interpretation * * * * EXAM: XR KNEE 4V AP/PA BOTH+LAT/OSCAR RT HISTORY: Acute pain of right knee. VIEWS: Bilateral weightbearing AP and PA flexion, bilateral merchant, right knee lateral. COMPARISON: No relevant comparison. FINDINGS: No dislocation or acute fracture. Right knee moderate lateral femorotibial compartment narrowing with valgus, tricompartmental osteophytes and small joint effusion. Bilateral chondrocalcinosis, more pronounced at the right knee. DIVISION OF RADIOLOGY Provider, Nick Hinkle - 03/26/2021 * * *Final Report* * * DATE OF EXAM: Mar 26 2021 2:42PM WOX 5203 - XR KNEE 4V AP/PA BOTH+LAT/OSCAR RT / PROCEDURE REASON: Acute pain of right knee * * * * Physician Interpretation * * * * EXAM: XR KNEE 4V AP/PA BOTH+LAT/OSCAR RT HISTORY: Acute pain of right knee. VIEWS: Bilateral weightbearing AP and PA flexion, bilateral merchant, right knee lateral. COMPARISON: No relevant comparison. FINDINGS: No dislocation or acute fracture. Right knee moderate lateral femorotibial compartment narrowing with valgus, tricompartmental osteophytes and small joint effusion. Bilateral chondrocalcinosis, more pronounced at the right knee. IMPRESSION IMPRESSION: Right knee osteoarthritis with chondrocalcinosis and small joint effusion. Farm Management Agent: PSCDu Transcribe Date/Time: Mar 26 2021 3:04P Dictated by : Catalina LONGO MD This examination was interpreted and the report reviewed and electronically signed by: Catalina LONGO MD on Mar 26 2021 3:08PM EST [facility] Radiology Study observation (narrative) [facility] XR Knee - right 4 ViewsOrder ed By: [facility] Provider on 03-26-2021 [facility] Cells counted [employer] (Bld/Ti ss) [#]on 01-06-2019 Differential Total Cells Counted Not Reportable [facility] Erythrocyte distribution wid th (RBC) [Entitic vol]on 01-06-2019 Red Cell Distribution Width Diff 45.1 fl High 35.1-43.9 [facility] Erythrocyte distribution wid th standard deviationon 01-06-2019 Erythrocyte distribution width (RBC) [Entitic vol] 45.1 fL 35.1-43.9 [facility] Laboratory - Hematology and Cell countson 01-06-2019 Erythrocyte distribution width (RBC) [Ratio] 13.4 % 11.6-14.6 [facility] Total cell counton 9 Cells counted [employer] (Bld/Tiss) [#] Not Reportable [facility] Lab Report: Basic Metabolic Profile (BMP)on 08-03-2017 Anion gap 9 mmol/L Invalid Interpretation Code 5-15 [facility] [facility] Work Phone: [phone] BUN/Creatinine Ratio 24.3 RATIO High 10-20 [facility] Work Phone: [phone] Calcium 8.7 mg/dL Invalid Interpretation Code 8.5-10.1 [facility] [employer] Work Phone: [phone] Chloride 96 mmol/L Low 98-107 [facility] [facility] Work Phone: [phone] CO2 27.0 mmol/L Invalid Interpretation Code 21.0-32.0 [facility] [employer] [facility] Work Phone: [phone] Creatinine 0.86 mg/dL Invalid Interpretation Code 0.55-1.02 [facility] [employer] [facility] Work Phone: [phone] eGFR (non-black) 82 mL/min/{1.73_m2} Invalid Interpretation Code >60 [facility] [employer] Work Phone: [phone] eGFR (non-black) 68 mL/min/{1.73_m2} Invalid Interpretation Code >60 [facility] [employer] Work Phone: [phone] Glucose mass conc 87 mg/dL Invalid Interpretation Code 70-110 [facility] [facility] Work Phone: [phone] Potassium molar conc 4.6 mmol/L Invalid Interpretation Code 3.5-5.1 [facility] Work Phone: [phone] Sodium 132 mmol/L Low 136-145 [facility] Work Phone: [phone] Urea nitrogen 21 mg/dL High 7-18 [facility] Work Phone: [phone] Lab Report: Magnesiumon 07-16 Magnesium 2.2 mg/dL Invalid Interpretation Code 1.8-2.4 [facility] Work Phone: [phone] Office Visit: Jw 08-03-20 17 Documentation of current medications (procedure) Done Invalid Interpretation Code [facility] [employer] Work Phone: [phone] Fall risk assessment No Invalid Interpretation Code [facility] [employer] Work Phone: [phone] Replaced Document: Midmark E CG Observationson 08-03-2017 EKG QRS axis 55 deg Invalid Interpretation Code [facility] Work Phone: [phone] Interpretation Sinus Rhythm -RSR(V1 ) -nondiagnostic. PROBABLY NORMAL Invalid Interpretation Code [facility] Work Phone: [phone] P [place] 90 deg Invalid Interpretation Code [facility] Work Phone: [phone] ID Interval 196 ms Invalid Interpretation Code [facility] Work Phone: [phone] Pulse (Heart Rate) 66 /min Invalid Interpretation Code [facility] Work Phone: [phone] QRS Duration 100 ms Invalid Interpretation Code [facility] Work Phone: [phone] QT Interval new path ms Invalid Interpretation Code [facility] Work Phone: [phone] QTc Jacobsen 422 ms Invalid Interpretation Code [facility] Work Phone: [phone] T [place] 64 deg Invalid Interpretation Code [facility] Work Phone: [phone] Office Visit: post LN remova justin 06-16-2017 Alcoholism counseling (procedure) no Invalid Interpretation Code [facility] Work Phone: [phone] Dietary management education, guidance, and counseling (procedure) yes Invalid Interpretation Code [facility] Work Phone: [phone] Tobacco use CPHS Never smoker Invalid Interpretation Code [facility] Work Phone: [phone] Lab Report: CBC-Complete Blo od Cnt No Diffon 04-13-2017 Erythrocyte distribution width Auto Ratio (RBC) 13.2 % Invalid Interpretation Code 11.6-14.6 [facility] Work Phone: [phone] Erythrocytes (RBC) 4.10 10*6/uL Low 4.2-5.[address] [facility] [address] [facility] Work Phone: [phone] Hematocrit (HCT) 37.8 % Invalid Interpretation Code 37-47 [facility] Work Phone: [phone] Hemoglobin mass conc (Bld) 12.6 g/dL Invalid Interpretation Code 12.0-15.0 [facility] Work Phone: [phone] MCH 30.7 pg Invalid Interpretation Code 27.0-32.0 [facility] Work Phone: [phone] MCHC mass conc (RBC) 33.3 G/GL Invalid Interpretation Code 32-36 [employer] Work Phone: [phone] MCV 92.2 fL Invalid Interpretation Code 81-99 [employer] Work Phone: [phone] Platelets 239 10*3/mm3 Invalid Interpretation Code 150-450 [employer] Work Phone: [phone] PMV by Uriel 9.6 fL Invalid Interpretation Code 6.2-12.0 [employer] Work Phone: [phone] RDW SD 44.5 fL High 35.1-43.9 [employer] Work Phone: [phone] WBC (Leukocytes) 4.7 10*3/uL Invalid Interpretation Code 4.4-11.0 [employer] Work Phone: [phone] Clinical Lists Update: Pre 02-25-2017 Left ventricular Ejection fraction 60 % Invalid Interpretation Code [employer] Work Phone: [phone] Clinical Lists Update: Pre 02-07-2016 eGFR (non-black) 97 mL/min/{1.73_m2} Invalid Interpretation Code [employer] Work Phone: [phone] eGFR (non-black) 81 mL/min/{1.73_m2} Invalid Interpretation Code [employer] Work Phone: [phone] Clinical Lists Update: Pre 02-06-2016 Thyroid stimulating hormone (TSH) 5.70 u[iU]/mL High [employer] Work Phone: [phone] Thyroxine (T4) free 0.97 ng/dL Invalid Interpretation Code [employer] Work Phone: [phone] Lab Report: (P) Urinalysis, Complete02-05-2016 Bilirubin Ql (U) Negative Invalid Interpretation Code Negative [employer] Work Phone: [phone] NITRITE UR Negative Invalid Interpretation Code Negative [employer] Work Phone: [phone] OCCULT BLOOD-UR 10 High Negative [employer] Work Phone: [phone] specific gravity, urine 1.010 Invalid Interpretation Code 1.002-1.03 0 [employer] Work Phone: [phone], clarity Sl. Cloudy Invalid Interpretation Code Clear [employer] Work Phone: [phone] Urine, color Yellow Invalid Interpretation Code Yellow [employer] Work Phone: [phone] Urine, glucose presence Normal mg/dl Invalid Interpretation Code Normal [employer] Work Phone: [phone] Urine, ketones presence Negative Invalid Interpretation Code Negative [employer] Work Phone: [phone] Urine, leukocyte esterase presence 500 High Negative [employer] Work Phone: [phone] Urine, pH 7.0 [pH] Invalid Interpretation Code 5.0 - 8.0 [employer] Work Phone: [phone] Urine, protein Negative Invalid Interpretation Code Negative [employer] Work Phone: [phone] UROBILI Normal mg/dl Invalid Interpretation Code Normal [employer] Work Phone: [phone] Lab Report: Lipid Profileon 02-05-2016 Cholesterol 174 mg/dL Invalid Interpretation Code 200 [employer] Work Phone: [phone] HDL Cholesterol 96 mg/dL Invalid Interpretation Code [employer] Work Phone: [phone] LDL Cholesterol 68 mg/dL Invalid Interpretation Code 0-130 [employer] Work Phone: [phone] Triglyceride 52 mg/dL Invalid Interpretation Code [employer] Work Phone: [phone] very low density lipoproteins 10 mg/dL Invalid Interpretation Code 5-40 [employer] Work Phone: [phone] Lab Report: Liver Profileon 02-05-2016 Alanine aminotransferase (ALT) 26 U/L Invalid Interpretation Code 12-78 [employer] Work Phone: [phone] Albumin 3.1 g/dL Low 3.4-5.0 [employer] Work Phone: [phone] Alkaline phosphatase (ALP) 66 U/L Invalid Interpretation Code 50-136 [employer] Work Phone: [phone] Aspartate aminotransferase (AST) 28 U/L Invalid Interpretation Code 15-37 [employer] Work Phone: [phone] Bilirubin (direct) 0.20 mg/dL Invalid Interpretation Code 0.00-0.30 [employer] Work Phone: [phone] Bilirubin (total) 0.70 mg/dL Invalid Interpretation Code 0.20-1.00 [employer] Work Phone: [phone] Globulin 3.6 g/dL High 2.3-3.5 [employer] Work Phone: [phone] Protein 6.7 g/dL Invalid Interpretation Code 6.4-8.2 [employer] Work Phone: [phone] Lab Report: Osmolality, Seru mon 02-05-2016 Osmolality 265 mosm/kg Low 280-301 [employer] Work Phone: [phone] Lab Report: Osmolality, Urin robbie 02-05-2016 Urine, osmolality 360 mosm/kg Invalid Interpretation Code [employer] Work Phone: [phone] Lab Report: Urinalysis, Comp leteon 02-05-2016 Urine, bacteria in sediment RARE /hpf Invalid Interpretation Code None Seen [employer] Work Phone: [phone] Urine, epithelial cells in sediment 0-5 SEEN Invalid Interpretation Code 5-10 [employer] Work Phone: [phone] Urine, erythrocytes in sediment by volume 0-5 SEEN Invalid Interpretation Code 0-5 [employer] Work Phone: [phone] Urine, mucus presence in sediment 0 SEEN Invalid Interpretation Code [employer] Work Phone: [phone] WBC (Leukocytes) 5-10 SEEN Invalid Interpretation Code 0-5 [employer] Work Phone: [phone] Replaced Document: (P) Prote in+Creatinine Ratio,Urineon 02-05-2016 Protein [Mass] in Urine collected for unspecified duration 12.2 mg/dL High <11.9 [employer] Work Phone: [phone] protein/creatinine, urine, point, quantitative 172 MG/G CRE Invalid Interpretation Code 0-200 [employer] Work Phone: [phone] Urine, creatinine 71.00 mg/dL Invalid Interpretation Code NO RANGE EST. [employer] Work Phone: [phone] Replaced Document: (P) Urine Chlorideon 02-05-2016 UR CL 43 mmol/L Invalid Interpretation Code Not Establ. [employer] Work Phone: [phone] Replaced Document: (P) Urine Potassiumon 02-05-2016 Urine, potassium 46.0 mmol/L Invalid Interpretation Code Not Establ. [employer] Work Phone: [phone] Replaced Document: (P) Urine Sodiumon 02-05-2016 Urine, sodium 38 mmol/L Invalid Interpretation Code Not Establ. [employer] Work Phone: [phone] Office Visiton 08-30-2015 General cardiovascular disease 10Y risk [#] [place].Darrell'Agomoira 2 % Invalid Interpretation Code [employer] Work Phone: [phone] Office Visiton 01-16-2015 cardiac risk group B Invalid Interpretation Code [employer] Work Phone: [phone] Coumadin Management: Jorden garibay [place] 05-11-2014 INR Coag RelTime (Bld) Hospital lab Invalid Interpretation Code [employer] Work Phone: [phone] INR Coag RelTime (Bld) 2 to 3 Invalid Interpretation Code [employer] Work Phone: [phone] INR Coag RelTime (PPP) 2.8 {INR} Invalid Interpretation Code [facility] Phone: [phone] Prothrombin time (PT) Coag time (PPP) 29.4 s Invalid Interpretation Code [facility] Phone: [phone] Lab Report: PTon 05-11-2014 PTP 29.4 SECONDS High 11.7-14.9 [employer] Work Phone: [phone] 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 basophils as percent of blood leukocytes, manual count 0.5 % Invalid Interpretation Code [employer] Work Phone: [phone] eosinophils as percent of blood leukocytes, manual count 0.7 % Invalid Interpretation Code [facility] Phone: [phone] Lymphocytes/100 leukocytes 28.9 % Invalid Interpretation Code [facility] Phone: [phone] Monocytes/100 leukocytes 14.7 % High [employer] Work Phone: [phone] neutrophils, band form as percent of blood leukocytes, manual count 55.2 % Invalid Interpretation Code [employer] [employer] Work Phone: Replaced Document: Neelima Gomez 10-10-2013 Pulse (Heart Rate) 442 ms Invalid Interpretation Code [facility] Work Phone: Influenza virus A and B and SARS-CoV-2 (COVID-19) Ag panel - Upper respiratory specim SARS-CoV-2 (COVID-19) RNA MIGUEL ANGEL+probe Ql (Resp) [facility] Work Phone: No Panel Information [facility] Vital Signs Date Time Vital Sign Value Performing Clinician Facility 02-10-2025 08:39-0400 Body mass index (BMI) [Ratio] 19.08 kg/m2 Rochelle Hackett MD Work Phone: [facility] 02-10-2025 08:39-0400 Body weight 55.25 kg Rochelle Hackett MD Work Phone: [facility] 02-10-2025 08:39-0400 Diastolic blood pressure 71 mm[Hg] Rochelle Hackett MD Work Phone: [facility] 02-10-2025 08:39-0400 Heart rate 62 /min Rochelle Hackett MD Work Phone: [facility] 02-10-2025 08:39-0400 Respiratory rate 16 /min Rochelle Hackett MD Work Phone: [facility] 02-10-2025 08:39-0400 Systolic blood pressure 160 mm[Hg] Rochelle Hackett MD Work Phone: [facility] 11-08-2024 09:17-0500 Body height 170.2 cm Rochelle Hackett MD Work Phone: [facility] 11-08-2024 09:17-0500 Body mass index (BMI) [Ratio] 18.01 kg/m2 Rochelle Hackett MD Work Phone: [facility] 11-08-2024 09:17-0500 Body weight 52.16 kg Rochelle Hackett MD Work Phone: [facility] 11-08-2024 09:17-0500 Diastolic blood pressure 78 mm[Hg] Rochelle Hackett MD Work Phone: [facility] 11-08-2024 09:17-0500 Heart rate 73 /min Rochelle Hackett MD Work Phone: [facility] 11-08-2024 09:17-0500 SaO2% (BldA) [Mass fraction] 96 % Rochelle Hackett MD Work Phone: [facility] 11-08-2024 09:17-0500 Systolic blood pressure 110 mm[Hg] Rochelle Hackett MD Work Phone: [facility] 11-02-2024 12:11-0500 Body mass index (BMI) [Ratio] 18.79 kg/m2 Al Older SERVICES DELIVERY DRIVER.FLIGHT FOLLOWER Work Phone: [facility] 11-02-2024 12:11-0500 Body weight 54.43 kg Al Older SERVICES DELIVERY DRIVER.FLIGHT FOLLOWER Work Phone: [facility] 11-02-2024 12:11-0500 Diastolic blood pressure 70 mm[Hg] Al Older SERVICES DELIVERY DRIVER.FLIGHT FOLLOWER Work Phone: [facility] 11-02-2024 12:11-0500 Heart rate 60 /min Al Older SERVICES DELIVERY DRIVER.FLIGHT FOLLOWER Work Phone: [facility] 11-02-2024 12:11-0500 Respiratory rate 16 /min Al Older SERVICES DELIVERY DRIVER.FLIGHT FOLLOWER Work Phone: [facility] 11-02-2024 12:11-0500 SaO2% (BldA) [Mass fraction] 98 % Al Older SERVICES DELIVERY DRIVER.FLIGHT FOLLOWER Work Phone: [facility] 11-02-2024 12:11-0500 Systolic blood pressure 128 mm[Hg] Al Older SERVICES DELIVERY DRIVER.FLIGHT FOLLOWER Work Phone: [facility] 10-30-2024 21:58-0500 Body temperature 97.8 [degF] Dr. Rochelle Hackett MD Work Phone: [facility] 10-30-2024 21:58-0500 Diastolic blood pressure 71 mm[Hg] Dr. Rochelle Hackett MD Work Phone: 8(230)409-369660 [place] [address] 10-30-2024 21:58-0500 Heart rate 73 /min Dr. Rochelle Hackett MD Work Phone: 6(498)988-507060 [place] [address] 10-30-2024 21:58-0500 Respiratory rate 18 /min Dr. Rochelle Hackett MD Work Phone: 5(377)808-820360 [place] [address] 10-30-2024 21:58-0500 SaO2% (BldA) [Mass fraction] 100 % Dr. Rochelle Hackett MD Work Phone: 6(367)212-993860 [place] [address] 10-30-2024 21:58-0500 Systolic blood pressure 166 mm[Hg] Dr. Rochelle Hackett MD Work Phone: 2(843)536-047560 [place] [address] 10-30-2024 19:58-0500 Body height 170.[address] Rochelle Hackett MD Work Phone: 7(025)697-993260 [place] [address] 10-30-2024 19:58-0500 Body mass index (BMI) [Ratio] 19.6 kg/m2 Dr. Rochelle Hackett MD Work Phone: 5(699)529-706260 [place] [address] 10-30-2024 19:58-0500 Body weight 56.[address] Rochelle Hackett MD Work Phone: 5(343)045-932060 [place] [address] 09-28-2024 16:53-0500 Body height 169.5 cm Maya Sal MD Work Phone: [facility] 09-28-2024 16:53-0500 Body mass index (BMI) [Ratio] 18.94 kg/m2 Maya Sal MD Work Phone: [facility] 09-28-2024 16:53-0500 Body weight 54.43 kg Maya Sal MD Work Phone: [facility] 09-20-2024 15:44-0500 Diastolic blood pressure 61 mm[Hg] Dr. Rochelle Hackett MD Work Phone: 9(055)985-804560 [place] [address] 09-20-2024 15:44-0500 Heart rate 67 /min Dr. Rochelle Hackett MD Work Phone: 3(984)198-254560 [place] [address] 09-20-2024 15:44-0500 Respiratory rate 16 /min Dr. Rochelle Hackett MD Work Phone: 1(782)971-329260 [place] [address] 09-20-2024 15:44-0500 SaO2% (BldA) [Mass fraction] 100 % Dr. Rochelle Hackett MD Work Phone: 7(515)296-236260 [place] [address] 09-20-2024 15:44-0500 Systolic blood pressure 152 mm[Hg] Dr. Rochelle Hackett MD Work Phone: 8(682)944-925760 [place] [address] 09-20-2024 14:48-0500 Body mass index (BMI) [Ratio] 18.7 kg/m2 Dr. oRchelle Hackett MD Work Phone: 9(407)324-604460 [place] [address] 09-20-2024 14:48-0500 Body weight 54.[address] Rochelle Hackett MD Work Phone: 4(643)929-424260 [place] [address] 09-09-2024 11:17-0500 Body mass index (BMI) [Ratio] 18.9 kg/m2 Dr. Rochelle Hackett MD Work Phone: 2(035)906-520860 [place] [address] 09-09-2024 11:17-0500 Body weight 54.[address] Rochelle Hackett MD Work Phone: 5(969)779-124460 [place] [address] 09-09-2024 11:17-0500 Diastolic blood pressure 74 mm[Hg] Dr. Rochelle Hackett MD Work Phone: 0(941)692-914860 [place] [address] 09-09-2024 11:17-0500 Heart rate 61 /min Dr. Rochelle Hackett MD Work Phone: 9(722)407-844560 [place] [address] 09-09-2024 11:17-0500 Respiratory rate 16 /min Dr. Rochelle Hackett MD Work Phone: 2(228)352-765960 [place] [address] 09-09-2024 11:17-0500 Systolic blood pressure 130 mm[Hg] Dr. Rochelle Hackett MD Work Phone: 4(419)402-154660 [place] [address] 05-18-2024 09:42-0400 Body mass index (BMI) [Ratio] 18.51 kg/m2 Rochelle Hackett MD Work Phone: [facility] 05-18-2024 09:42-0400 Body weight 53.62 kg Rochelle Hackett MD Work Phone: [facility] 05-18-2024 09:42-0400 Diastolic blood pressure 72 mm[Hg] Rochelle Hackett MD Work Phone: [facility] 05-18-2024 09:42-0400 Heart rate 68 /min Rochelle Hackett MD Work Phone: [facility] 05-18-2024 09:42-0400 Respiratory rate 16 /min Rochelle Hackett MD Work Phone: [facility] 05-18-2024 09:42-0400 Systolic blood pressure 128 mm[Hg] Rochelle Hackett MD Work Phone: [facility] 04-12-2024 09:04-0400 Body height 170.2 cm Rochelle Hackett MD Work Phone: [facility] 04-12-2024 09:04-0400 Body mass index (BMI) [Ratio] 18.48 kg/m2 Rochelle Hackett MD Work Phone: [facility] 04-12-2024 09:04-0400 Body weight 53.52 kg Rochelle Hackett MD Work Phone: [facility] 04-12-2024 09:04-0400 Diastolic blood pressure 74 mm[Hg] Rochelle Hackett MD Work Phone: [facility] 04-12-2024 09:04-0400 Heart rate 84 /min Rochelle Hackett MD Work Phone: [facility] 04-12-2024 09:04-0400 Respiratory rate 16 /min Rochelle Hackett MD Work Phone: [facility] 04-12-2024 09:04-0400 Systolic blood pressure 126 mm[Hg] Rochelle Hackett MD Work Phone: [facility] 03-28-2024 14:49-0400 Body temperature 96.7 [degF] Dr. Rochelle Hackett MD Work Phone: 3(707)717-124560 [place] [address] 01-23-2024 16:06-0400 Body temperature 98.1 [degF] Dr. Rochelle Hackett Work Phone: 4(542)164-114460 [place] [address] 01-23-2024 16:06-0400 Diastolic blood pressure 87 mm[Hg] Dr. Rochelle Hackett Work Phone: 3(220)776-502060 [place] [address] 01-23-2024 16:06-0400 Heart rate 80 /min Dr. Rochelle Hackett Work Phone: 2(000)333-937260 [place] [address] 01-23-2024 16:06-0400 Respiratory rate 18 /min Dr. Rochelle Hackett Work Phone: 1(331)507-315360 [place] [address] 01-23-2024 16:06-0400 SaO2% (BldA) [Mass fraction] 96 % Dr. Rochelle Hackett Work Phone: 3(159)464-374460 [place] [address] 01-23-2024 16:06-0400 Systolic blood pressure 172 mm[Hg] Dr. Rochelle Hackett Work Phone: 6(413)534-317360 [place] [address] 01-23-2024 14:06-0400 Body height 170.[address] Rochelle Hackett Work Phone: 4(623)787-915060 [place] [address] 01-23-2024 14:06-0400 Body mass index (BMI) [Ratio] 18.5 kg/m2 Dr. Rochelle Hackett Work Phone: 6(391)946-979060 [place] [address] 01-23-2024 14:06-0400 Body weight 53.[address] Rochelle Hackett Work Phone: 2(374)752-567160 [place] [address] 01-18-2024 11:10-0400 Body mass index (BMI) [Ratio] 18.3 kg/m2 Dr. Rochelle Hackett Work Phone: 4(874)530-695360 [place] [address] 01-18-2024 11:10-0400 Body weight 53.[address] Rochelle Hackett Work Phone: 5(358)918-647060 [place] [address] 01-18-2024 11:10-0400 Diastolic blood pressure 76 mm[Hg] Dr. Rochelle Hackett Work Phone: 5(710)717-555860 [place] [address] 01-18-2024 11:10-0400 Heart rate 62 /min Dr. Rochelle Hackett Work Phone: 1(188)620-108060 [place] [address] 01-18-2024 11:10-0400 Respiratory rate 18 /min Dr. Rochelle Hackett Work Phone: 6(530)244-009260 [place] [address] 01-18-2024 11:10-0400 SaO2% (BldA) [Mass fraction] 10 % Dr. Rochelle Hackett Work Phone: 1(993)651-272460 [place] [address] 01-18-2024 11:10-0400 Systolic blood pressure 141 mm[Hg] Dr. Rochelle Hackett Work Phone: 7(839)017-155960 [place] [address] 12-29-2023 13:45-0400 Body height 170.[address] Rochelle Hackett Work Phone: 1(021)037-897460 [place] [address] 12-29-2023 13:45-0400 Body mass index (BMI) [Ratio] 18.6 kg/m2 Dr. Rochelle Hackett Work Phone: 6(858)372-031660 [place] [address] 12-29-2023 13:45-0400 Body temperature 98 [degF] Dr. Rochelle Hackett Work Phone: 2(193)815-302660 [place] [address] 12-29-2023 13:45-0400 Body weight 54.[address] Rochelle Hackett Work Phone: 7(544)152-165960 [place] [address] 12-29-2023 13:45-0400 Diastolic blood pressure 72 mm[Hg] Dr. Rochelle Hackett Work Phone: 5(143)153-975060 [place] [address] 12-29-2023 13:45-0400 Heart rate 68 /min Dr. Rochelle Hackett Work Phone: 8(546)743-384260 [place] [address] 12-29-2023 13:45-0400 Respiratory rate 16 /min Dr. Rochelle Hackett Work Phone: 8(076)152-682560 [place] [address] 12-29-2023 13:45-0400 SaO2% (BldA) [Mass fraction] 99 % Dr. Rochelle Hackett Work Phone: [facility] 12-29-2023 13:45-0400 Systolic blood pressure 116 mm[Hg] Dr. Rochelle Hackett Work Phone: [facility] 12-15-2023 14:11-0400 Diastolic blood pressure 81 mm[Hg] Sara Rangel SERVICES DELIVERY DRIVER.BLUEPRINTING AND PHOTOCOPY SUPERVISOR Work Phone: [facility] 12-15-2023 14:11-0400 Heart rate 76 /min Sara Rangel SERVICES DELIVERY DRIVER.BLUEPRINTING AND PHOTOCOPY SUPERVISOR Work Phone: [facility] 12-15-2023 14:11-0400 Systolic blood pressure 145 mm[Hg] Sara Rangel SERVICES DELIVERY DRIVER.BLUEPRINTING AND PHOTOCOPY SUPERVISOR Work Phone: [facility] 12-15-2023 14:09-0400 Body weight 53.52 kg Sara Rangel SERVICES DELIVERY DRIVER.BLUEPRINTING AND PHOTOCOPY SUPERVISOR Work Phone: [facility] 12-15-2023 14:09-0400 Respiratory rate 16 /min [facility] SERVICES DELIVERY DRIVER.BLUEPRINTING AND PHOTOCOPY SUPERVISOR Work Phone: [facility] 12-08-2023 22:48-0400 Body temperature 98.7 [degF] Dr. Rochelle Hackett Work Phone: [facility] 12-08-2023 22:48-0400 Diastolic blood pressure 57 mm[Hg] Dr. Rochelle Hackett Work Phone: [facility] 12-08-2023 22:48-0400 Heart rate 70 /min Dr. Rochelle Hackett Work Phone: [facility] 12-08-2023 22:48-0400 Respiratory rate 17 /min Dr. Rochelle Hackett Work Phone: [facility] 12-08-2023 22:48-0400 SaO2% (BldA) [Mass fraction] 97 % Dr. Rochelle Hackett Work Phone: [facility] 12-08-2023 22:48-0400 Systolic blood pressure 137 mm[Hg] Dr. Rochelle Hackett Work Phone: 3(067)097-553260 [place] [address] 12-08-2023 20:29-0400 Body height 170.[address] Rochelle Hackett Work Phone: 5(360)268-450960 [place] [address] 12-08-2023 20:29-0400 Body mass index (BMI) [Ratio] 19.1 kg/m2 Dr. Rochelle Hackett Work Phone: 1(594)287-335760 [place] [address] 12-08-2023 20:29-0400 Body weight 55.[address] Rochelle Hackett Work Phone: 0(866)593-663660 [place] [address] 11-26-2023 13:47-0400 Body mass index (BMI) [Ratio] 18.8 kg/m2 Dr. Rochelle Hackett Work Phone: 0(709)399-017560 [place] [address] 11-26-2023 13:47-0400 Body temperature 98 [degF] Dr. Rochelle Hackett Work Phone: 6(993)810-163060 [place] [address] 11-26-2023 13:47-0400 Body weight 54.[address] Rochelle Hackett Work Phone: 0(576)803-321660 [place] [address] 11-26-2023 13:47-0400 Diastolic blood pressure 70 mm[Hg] Dr. Rochelle Hackett Work Phone: 2(996)755-479260 [place] [address] 11-26-2023 13:47-0400 Heart rate 67 /min Dr. Rochelle Hackett Work Phone: 9(057)218-399960 [place] [address] 11-26-2023 13:47-0400 Respiratory rate 17 /min Dr. Rochelle Hackett Work Phone: 7(346)849-551360 [place] [address] 11-26-2023 13:47-0400 SaO2% (BldA) [Mass fraction] 99 % Dr. Rochelle Hackett Work Phone: 8(426)337-001660 [place] [address] 11-26-2023 13:47-0400 Systolic blood pressure 122 mm[Hg] Dr. Rochelle Hackett Work Phone: 6(187)100-600360 [place] [address] 11-22-2023 16:13-0400 Body temperature 98.3 [degF] Dr. Rochelle Hackett Work Phone: 3(993)775-141360 [place] [address] 11-22-2023 16:13-0400 Diastolic blood pressure 49 mm[Hg] Dr. Rochelle Hackett Work Phone: 3(800)425-465060 [place] [address] 11-22-2023 16:13-0400 Heart rate 66 /min Dr. Rochelle Hackett Work Phone: 3(612)514-099260 [place] [address] 11-22-2023 16:13-0400 Respiratory rate 16 /min Dr. Rochelle Hackett Work Phone: 4(854)557-753260 [place] [address] 11-22-2023 16:13-0400 SaO2% (BldA) [Mass fraction] 97 % Dr. Rochelle Hackett Work Phone: 2(969)701-866860 [place] [address] 11-22-2023 16:13-0400 Systolic blood pressure 122 mm[Hg] Dr. Rochelle Hackett Work Phone: 3(983)499-586160 [place] [address] 11-22-2023 06:00-0400 Body mass index (BMI) [Ratio] 18 kg/m2 Dr. Rochelle Hackett Work Phone: 3(356)902-492860 [place] [address] 11-22-2023 06:00-0400 Body weight 52.[address] Rochelle Hackett Work Phone: 9(302)099-183560 [place] [address] 11-22-2023 01:29-0500 Body height 170.[address] Rochelle Hackett Work Phone: 1(800)435-441860 [place] [address] 11-21-2023 23:41-0500 Body temperature 97.6 [degF] Dr. Rochelle Hackett Work Phone: 3(929)169-168560 [place] [address] 11-21-2023 23:41-0500 Diastolic blood pressure 66 mm[Hg] Dr. Rochelle Hackett Work Phone: 9(216)224-784460 [place] [address] 11-21-2023 23:41-0500 Heart rate 78 /min Dr. Rochelle Hackett Work Phone: 6(470)012-910160 [place] [address] 11-21-2023 23:41-0500 Respiratory rate 17 /min Dr. Rochelle Hackett Work Phone: [facility] 11-21-2023 23:41-0500 SaO2% (BldA) [Mass fraction] 98 % Dr. Rochelle Hackett Work Phone: [facility] 11-21-2023 23:41-0500 Systolic blood pressure 135 mm[Hg] Dr. Rochelle Hackett Work Phone: [facility] 11-21-2023 19:36-0500 Body height 170.[address] Rochelle Hackett Work Phone: [facility] 11-21-2023 19:36-0500 Body mass index (BMI) [Ratio] 18.1 kg/m2 Dr. Rochelle Hackett Work Phone: [facility] 11-21-2023 19:36-0500 Body weight 52.[address] Rochelle Hackett Work Phone: [facility] 11-02-2023 15:20-0500 Body weight 53.66 kg Irish Kelvin SERVICES DELIVERY DRIVER.FLIGHT FOLLOWER Work Phone: [facility] 11-02-2023 15:20-0500 Diastolic blood pressure 64 mm[Hg] Irish Kelvin SERVICES DELIVERY DRIVER.FLIGHT FOLLOWER Work Phone: [facility] 11-02-2023 15:20-0500 Heart rate 64 /min Irish Kelvin SERVICES DELIVERY DRIVER.FLIGHT FOLLOWER Work Phone: [facility] 11-02-2023 15:20-0500 Respiratory rate 16 /min Irish Kelvin SERVICES DELIVERY DRIVER.FLIGHT FOLLOWER Work Phone: [facility] 11-02-2023 15:20-0500 SaO2% (BldA) [Mass fraction] 99 % Irish Kelvin SERVICES DELIVERY DRIVER.FLIGHT FOLLOWER Work Phone: [facility] 11-02-2023 15:20-0500 Systolic blood pressure 122 mm[Hg] Irish Kelvin SERVICES DELIVERY DRIVER.FLIGHT FOLLOWER Work Phone: [facility] 10-26-2023 13:47-0500 Body mass index (BMI) [Ratio] 18.7 kg/m2 Dr. Rochelle Hackett Work Phone: 7(980)618-400160 [place] [address] 10-26-2023 13:47-0500 Body temperature 97.8 [degF] Dr. Rochelle Hackett Work Phone: 1(941)860-931060 [place] [address] 10-26-2023 13:47-0500 Body weight 54.[address] Rochelle Hackett Work Phone: 8(208)372-894260 [place] [address] 10-26-2023 13:47-0500 Diastolic blood pressure 90 mm[Hg] Dr. Rochelle Hackett Work Phone: 4(305)929-272360 [place] [address] 10-26-2023 13:47-0500 Heart rate 68 /min Dr. Rochelle Hackett Work Phone: 0(524)900-306460 [place] [address] 10-26-2023 13:47-0500 Respiratory rate 17 /min Dr. Rochelle Hackett Work Phone: 7(091)195-132960 [place] [address] 10-26-2023 13:47-0500 SaO2% (BldA) [Mass fraction] 99 % Dr. Rochelle Hackett Work Phone: 7(191)034-436160 [place] [address] 10-26-2023 13:47-0500 Systolic blood pressure 144 mm[Hg] Dr. Rochelle Hackett Work Phone: 2(842)594-593360 [place] [address] 10-08-2023 11:39-0500 Body height 170.[address] Rochelle Hackett Work Phone: 8(447)076-641360 [place] [address] 10-08-2023 11:39-0500 Body mass index (BMI) [Ratio] 18.6 kg/m2 Dr. Rochelle Hackett Work Phone: 3(438)748-725160 [place] [address] 10-08-2023 11:39-0500 Body temperature 97.3 [degF] Dr. Rochelle Hackett Work Phone: 7(735)122-254060 [place] [address] 10-08-2023 11:39-0500 Body weight 54.[address] Rochelle Hackett Work Phone: 4(033)522-747160 [place] [address] 10-08-2023 11:39-0500 Diastolic blood pressure 82 mm[Hg] Dr. Rochelle Hackett Work Phone: 3(765)925-942560 [place] [address] 10-08-2023 11:39-0500 Heart rate 66 /min Dr. Rochelle Hackett Work Phone: 5(477)059-834660 [place] [address] 10-08-2023 11:39-0500 Respiratory rate 18 /min Dr. Rochelle Hackett Work Phone: 6(821)833-255060 [place] [address] 10-08-2023 11:39-0500 SaO2% (BldA) [Mass fraction] 99 % Dr. Rochelle Hackett Work Phone: 3(936)254-000160 [place] [address] 10-08-2023 11:39-0500 Systolic blood pressure 162 mm[Hg] Dr. Rochelle Hackett Work Phone: 3(185)939-352260 [place] [address] 10-01-2023 16:27-0500 Body temperature 98 [degF] Dr. Rochelle Hackett Work Phone: 8(228)011-553760 [place] [address] 10-01-2023 16:27-0500 Diastolic blood pressure 84 mm[Hg] Dr. Rochelle Hackett Work Phone: 0(107)553-354760 [place] [address] 10-01-2023 16:27-0500 Heart rate 67 /min Dr. Rochelle Hackett Work Phone: 3(344)054-086060 [place] [address] 10-01-2023 16:27-0500 Respiratory rate 16 /min Dr. Rochelle Hackett Work Phone: 2(989)118-873660 [place] [address] 10-01-2023 16:27-0500 SaO2% (BldA) [Mass fraction] 100 % Dr. Rochelle Hackett Work Phone: 4(952)603-109760 [place] [address] 10-01-2023 16:27-0500 Systolic blood pressure 167 mm[Hg] Dr. Rochelle Hackett Work Phone: 1(617)063-011860 [place] [address] 10-01-2023 15:35-0500 Body mass index (BMI) [Ratio] 18.6 kg/m2 Dr. Rochelle Hackett Work Phone: 2(913)907-575660 [place] [address] 10-01-2023 14:00-0500 Body mass index (BMI) [Ratio] 18.6 kg/m2 Dr. Rochelle Hackett Work Phone: 0(379)887-057041 [place] [address] 10-01-2023 14:00-0500 Body temperature 97.6 [degF] Dr. Rochelle Hackett Work Phone: 7(580)856-814560 [place] [address] 10-01-2023 14:00-0500 Body weight 54.[address] Rochelle Hackett Work Phone: 9(855)422-886360 [place] [address] 10-01-2023 14:00-0500 Diastolic blood pressure 77 mm[Hg] Dr. Rochelle Hackett Work Phone: 5(017)152-591260 [place] [address] 10-01-2023 14:00-0500 Heart rate 67 /min Dr. Rochelle Hackett Work Phone: 6(430)344-966260 [place] [address] 10-01-2023 14:00-0500 Respiratory rate 18 /min Dr. Rochelle Hackett Work Phone: 9(176)279-855960 [place] [address] 10-01-2023 14:00-0500 SaO2% (BldA) [Mass fraction] 100 % Dr. Rochelle Hackett Work Phone: 0(363)705-958060 [place] [address] 10-01-2023 14:00-0500 Systolic blood pressure 143 mm[Hg] Dr. Rochelle Hackett Work Phone: 9(415)159-445760 [place] [address] 09-22-2023 09:51-0500 Diastolic blood pressure 70 mm[Hg] Dr. Rochelle Hackett Work Phone: 5(038)737-490060 [place] [address] 09-22-2023 09:51-0500 Heart rate 69 /min Dr. Rochelle Hackett Work Phone: 0(086)688-006560 [place] [address] 09-22-2023 09:51-0500 Systolic blood pressure 96 mm[Hg] Dr. Rochelle Hackett Work Phone: 8(121)035-602060 [place] [address] 09-22-2023 07:56-0500 Body mass index (BMI) [Ratio] 18.6 kg/m2 Dr. Rochelle Hackett Work Phone: 7(554)467-328760 [place] [address] 09-22-2023 07:56-0500 Body temperature 97.8 [degF] Dr. Rochelle Hackett Work Phone: 9(102)696-133441 [place] [address] 09-22-2023 07:56-0500 Body weight 53.[address] Rochelle Hackett Work Phone: 8(835)697-535760 [place] [address] 09-22-2023 07:56-0500 Respiratory rate 17 /min Dr. Rochelle Hackett Work Phone: 2(832)085-227560 [place] [address] 09-22-2023 07:56-0500 SaO2% (BldA) [Mass fraction] 98 % Dr. Rochelle Hackett Work Phone: 7(897)007-727260 [place] [address] 08-29-2023 11:51-0500 Body height 170.[address] Rochelle Hackett Work Phone: 7(550)892-821460 [place] [address] 08-29-2023 11:51-0500 Body temperature 98 [degF] Dr. Rochelle Hackett Work Phone: 9(077)620-829360 [place] [address] 08-29-2023 11:51-0500 Diastolic blood pressure 121 mm[Hg] Dr. Rochelle Hackett Work Phone: 6(028)426-816460 [place] [address] 08-29-2023 11:51-0500 Heart rate 78 /min Dr. Rochelle Hackett Work Phone: 4(536)208-967060 [place] [address] 08-29-2023 11:51-0500 Respiratory rate 18 /min Dr. Rochelle Hackett Work Phone: 9(071)567-344460 [place] [address] 08-29-2023 11:51-0500 SaO2% (BldA) [Mass fraction] 100 % Dr. Rochelle Hackett Work Phone: 8(450)[phone] [place] [address] 08-29-2023 11:51-0500 Systolic blood pressure 154 mm[Hg] Dr. Rochelle Hackett Work Phone: 5(323)[phone] [place] [address] 07-23-2023 11:16-0500 Body temperature 98 [degF] Dr. Rochelle Hackett Work Phone: 8(822)[phone] [place] [address] 07-23-2023 11:16-0500 Diastolic blood pressure 70 mm[Hg] Dr. Rochelle Hackett Work Phone: 1(945)[phone] [place] [address] 07-23-2023 11:16-0500 Heart rate 61 /min Dr. Rochelle Hackett Work Phone: 5(555)[phone] [place] [address] 07-23-2023 11:16-0500 Respiratory rate 16 /min Dr. Rochelle Hackett Work Phone: 8(639)[phone] [place] [address] 07-23-2023 11:16-0500 Systolic blood pressure 162 mm[Hg] Dr. Rochelle Hackett Work Phone: 9(479)[phone] [place] [address] 07-23-2023 09:13-0500 Body mass index (BMI) [Ratio] 19 kg/m2 Dr. Rochelle Hackett Work Phone: 0(467)[phone] [address] [place] [address] 07-23-2023 09:13-0500 Body weight [address] Rochelle Hackett Work Phone: 4(828)114-226760 [place] [address] 07-23-2023 09:11-0500 Body height 170.[address] Rochelle Hackett Work Phone: 2(576)670-121860 [place] [address] 07-23-2023 09:11-0500 SaO2% (BldA) [Mass fraction] 100 % Dr. Rochelle Hackett Work Phone: 1(397)016-159660 [place] [address] 07-15-2023 09:07-0400 Body height 170.[address] Rochelle Hackett Work Phone: 3(156)401-802460 [place] [address] 07-15-2023 09:07-0400 Body mass index (BMI) [Ratio] 18.4 kg/m2 Dr. Rochelle Hackett Work Phone: 2(208)985-522560 [place] [address] 07-15-2023 09:07-0400 Body weight 53.[address] Rochelle Hackett Work Phone: 2(490)280-825060 [place] [address] 07-15-2023 09:07-0400 Diastolic blood pressure 79 mm[Hg] Dr. Rochelle Hackett Work Phone: 8(277)749-852160 [place] [address] 07-15-2023 09:07-0400 Heart rate 59 /min Dr. Rochelle Hackett Work Phone: 3(228)349-101260 [place] [address] 07-15-2023 09:07-0400 Respiratory rate 18 /min Dr. Rochelle Hackett Work Phone: [facility] 07-15-2023 09:07-0400 SaO2% (BldA) [Mass fraction] 100 % Dr. Rochelle Hackett Work Phone: [facility] 07-15-2023 09:07-0400 Systolic blood pressure 140 mm[Hg] Dr. Rochelle Hackett Work Phone: [facility] 07-09-2023 12:59-0400 Body weight 54.43 kg Al Older SERVICES DELIVERY DRIVER.FLIGHT FOLLOWER Work Phone: [facility] 07-09-2023 12:59-0400 Diastolic blood pressure 80 mm[Hg] Al Older SERVICES DELIVERY DRIVER.FLIGHT FOLLOWER Work Phone: [facility] 07-09-2023 12:59-0400 Heart rate 62 /min Al Older SERVICES DELIVERY DRIVER.FLIGHT FOLLOWER Work Phone: [facility] 07-09-2023 12:59-0400 Respiratory rate 16 /min Al Older SERVICES DELIVERY DRIVER.FLIGHT FOLLOWER Work Phone: [facility] 07-09-2023 12:59-0400 SaO2% (BldA) [Mass fraction] 99 % Al Older SERVICES DELIVERY DRIVER.FLIGHT FOLLOWER Work Phone: [facility] 07-09-2023 12:59-0400 Systolic blood pressure 130 mm[Hg] Al Older SERVICES DELIVERY DRIVER.FLIGHT FOLLOWER Work Phone: [facility] 05-08-2023 08:00-0400 Body temperature 97.39 [degF] Al Older SERVICES DELIVERY DRIVER.FLIGHT FOLLOWER Work Phone: [facility] 05-08-2023 08:00-0400 Body weight 52.62 kg Al Older SERVICES DELIVERY DRIVER.FLIGHT FOLLOWER Work Phone: [facility] 05-08-2023 08:00-0400 Diastolic blood pressure 80 mm[Hg] Al Older SERVICES DELIVERY DRIVER.FLIGHT FOLLOWER Work Phone: [facility] 05-08-2023 08:00-0400 Heart rate 60 /min Al Older SERVICES DELIVERY DRIVER.FLIGHT FOLLOWER Work Phone: [facility] 05-08-2023 08:00-0400 Respiratory rate 16 /min Al Older SERVICES DELIVERY DRIVER.FLIGHT FOLLOWER Work Phone: [facility] 05-08-2023 08:00-0400 Systolic blood pressure 128 mm[Hg] Al Older SERVICES DELIVERY DRIVER.FLIGHT FOLLOWER Work Phone: [facility] 04-25-2023 19:22-0400 Diastolic blood pressure 82 mm[Hg] Dr. Rochelle Hackett Work Phone: [facility] 04-25-2023 19:22-0400 Heart rate 86 /min Dr. Rochelle Hackett Work Phone: [facility] 04-25-2023 19:22-0400 Respiratory rate 16 /min Dr. Rochelle Hackett Work Phone: [facility] 04-25-2023 19:22-0400 SaO2% (BldA) [Mass fraction] 98 % Dr. Rochelle Hackett Work Phone: 5(112)256-804841 [place] [address] 04-25-2023 19:22-0400 Systolic blood pressure 136 mm[Hg] Dr. Rochelle Hackett Work Phone: 8(792)078-179860 [place] [address] 04-25-2023 16:13-0400 Body height 170.[address] Rochelle Hackett Work Phone: 5(049)029-050060 [place] [address] 04-25-2023 16:13-0400 Body mass index (BMI) [Ratio] 18.3 kg/m2 Dr. Rochelle Hackett Work Phone: 6(639)790-186941 [place] [address] 04-25-2023 16:13-0400 Body temperature 97.1 [degF] Dr. Rochelle Hackett Work Phone: 2(311)637-970860 [place] [address] 04-25-2023 16:13-0400 Body weight 53.[address] Rochelle Hackett Work Phone: 6(982)655-567041 [place] [address] 04-23-2023 09:33-0400 Body mass index (BMI) [Ratio] 18.5 kg/m2 Dr. Rochelle Hackett Work Phone: [facility] 04-23-2023 09:33-0400 Body weight 53.[address] Rochelle Hackett Work Phone: [facility] 04-23-2023 09:33-0400 Diastolic blood pressure 67 mm[Hg] Dr. Rochelle Hackett Work Phone: [facility] 04-23-2023 09:33-0400 Heart rate 68 /min Dr. Rochelle Hackett Work Phone: [facility] 04-23-2023 09:33-0400 Respiratory rate 18 /min Dr. Rochelle Hackett Work Phone: [facility] 04-23-2023 09:33-0400 SaO2% (BldA) [Mass fraction] 100 % Dr. Rochelle Hackett Work Phone: [facility] 04-23-2023 09:33-0400 Systolic blood pressure 130 mm[Hg] Dr. Rochelle Hackett Work Phone: [facility] 04-16-2023 07:19-0400 Diastolic blood pressure 82 mm[Hg] Sara Rangel SERVICES DELIVERY DRIVER.BLUEPRINTING AND [employer]OT[employer]OPY SUPERVISOR Work Phone: [facility] 04-16-2023 07:19-0400 Systolic blood pressure 138 mm[Hg] Sara Rangel SERVICES DELIVERY DRIVER.BLUEPRINTING AND PHOTOCOPY SUPERVISOR Work Phone: [facility] 04-16-2023 07:13-0400 Body temperature 96.01 [degF] Sara Rangel SERVICES DELIVERY DRIVER.BLUEPRINTING AND PHOTOCOPY SUPERVISOR Work Phone: [facility] 04-16-2023 07:13-0400 Body weight 53.52 kg Sara Rangel SERVICES DELIVERY DRIVER.BLUEPRINTING AND PHOTOCOPY SUPERVISOR Work Phone: [facility] 04-16-2023 07:13-0400 Heart rate 66 /min Sara Rangel SERVICES DELIVERY DRIVER.BLUEPRINTING AND PHOTOCOPY SUPERVISOR Work Phone: [facility] 04-16-2023 07:13-0400 Respiratory rate 18 /min Sara Rangel SERVICES DELIVERY DRIVER.BLUEPRINTING AND PHOTOCOPY SUPERVISOR Work Phone: [facility] 04-16-2023 07:13-0400 SaO2% (BldA) [Mass fraction] 99 % Sara Rangel APRNDennisBERT Work Phone: [facility] 04-09-2023 15:50-0400 Body height 170.[address] Rochelle Hackett Work Phone: 4(814)791-515260 [place] [address] 04-09-2023 15:50-0400 Body mass index (BMI) [Ratio] 18.6 kg/m2 Dr. Rochelle Hackett Work Phone: 3(175)312-048460 [place] [address] 04-09-2023 15:50-0400 Body weight 53.[address] Rochelle Hackett Work Phone: 8(457)060-604660 [place] [address] 04-09-2023 14:34-0400 Body mass index (BMI) [Ratio] 18.6 kg/m2 Dr. Rochelle Hackett Work Phone: 8(910)356-006060 [place] [address] 04-09-2023 14:34-0400 Body temperature 97.1 [degF] Dr. Rochelle Hackett Work Phone: 0(911)506-871160 [place] [address] 04-09-2023 14:34-0400 Body weight 53.[address] Rochelle Hackett Work Phone: 3(408)152-302260 [place] [address] 04-09-2023 14:34-0400 Diastolic blood pressure 76 mm[Hg] Dr. Rochelle Hackett Work Phone: 7(164)655-572960 [place] [address] 04-09-2023 14:34-0400 Heart rate 56 /min Dr. Rochelle Hackett Work Phone: 5(501)550-437560 [place] [address] 04-09-2023 14:34-0400 Respiratory rate 16 /min Dr. Rochelle Hackett Work Phone: 6(464)629-147260 [place] [address] 04-09-2023 14:34-0400 SaO2% (BldA) [Mass fraction] 100 % Dr. Rochelle Hackett Work Phone: 7(698)265-444660 [place] [address] 04-09-2023 14:34-0400 Systolic blood pressure 150 mm[Hg] Dr. Rochelle Hackett Work Phone: 5(890)782-265041 [place] [address] 04-08-2023 19:34-0400 Diastolic blood pressure 78 mm[Hg] Dr. Rochelle Hackett Work Phone: 8(285)565-827960 [place] [address] 04-08-2023 19:34-0400 Heart rate 64 /min Dr. Rochelle Hackett Work Phone: 5(966)198-129660 [place] [address] 04-08-2023 19:34-0400 Respiratory rate 14 /min Dr. Rochelle Hackett Work Phone: 1(293)791-861560 [place] [address] 04-08-2023 19:34-0400 SaO2% (BldA) [Mass fraction] 100 % Dr. Rochelle Hackett Work Phone: 4(144)655-079560 [place] [address] 04-08-2023 19:34-0400 Systolic blood pressure 119 mm[Hg] Dr. Rochelle Hackett Work Phone: 7(145)097-957460 [place] [address] 04-08-2023 14:05-0400 Body height 170.[address] Rochelle Hackett Work Phone: 2(957)585-300460 [place] [address] 04-08-2023 14:05-0400 Body mass index (BMI) [Ratio] 18.5 kg/m2 Dr. Rochelle Hackett Work Phone: 1(622)582-718660 [place] [address] 04-08-2023 14:05-0400 Body temperature 97.7 [degF] Dr. Rochelle Hackett Work Phone: 1(806)558-839560 [place] [address] 04-08-2023 14:05-0400 Body weight 53.[address] Rochelle Hackett Work Phone: 7(010)869-848360 [place] [address] 04-07-2023 19:13-0400 Diastolic blood pressure 70 mm[Hg] Dr. Rochelle Hackett Work Phone: 0(158)417-481260 [place] [address] 04-07-2023 19:13-0400 Heart rate 65 /min Dr. Rochelle Hackett Work Phone: 4(707)786-206960 [place] [address] 04-07-2023 19:13-0400 Systolic blood pressure 126 mm[Hg] Dr. Rochelle Hackett Work Phone: 6(365)608-698560 [place] [address] 04-07-2023 13:38-0400 Body mass index (BMI) [Ratio] 18.5 kg/m2 Dr. Rochelle Hackett Work Phone: 4(681)487-476960 [place] [address] 04-07-2023 13:38-0400 Body temperature 97.6 [degF] Dr. Rochelle Hackett Work Phone: 3(273)054-789760 [place] [address] 04-07-2023 13:38-0400 Body weight 53.[address] Rochelle Hackett Work Phone: 8(969)817-823260 [place] [address] 04-07-2023 13:38-0400 Respiratory rate 16 /min Dr. Rochelle Hackett Work Phone: 1(024)558-978360 [place] [address] 04-07-2023 13:38-0400 SaO2% (BldA) [Mass fraction] 99 % Dr. Rochelle Hackett Work Phone: 5(845)631-247360 [place] [address] 01-19-2023 11:06-0400 Diastolic blood pressure 60 mm[Hg] Dr. Rochelle Hackett Work Phone: 1(515)982-517260 [place] [address] 01-19-2023 11:06-0400 Systolic blood pressure 110 mm[Hg] Dr. Rochelle Hackett Work Phone: 6(894)407-381660 [place] [address] 01-19-2023 11:06-0400 Body mass index (BMI) [Ratio] 18.3 kg/m2 Dr. Rochelle Hackett Work Phone: 3(795)960-615260 [place] [address] 01-19-2023 11:06-0400 Body weight 53.[address] Rochelle Hackett Work Phone: 6(256)148-526260 [place] [address] 01-19-2023 11:06-0400 Heart rate 62 /min Dr. Rochelle Hackett Work Phone: 2(102)431-229960 [place] [address] 01-19-2023 11:06-0400 Respiratory rate 18 /min Dr. Rochelle Hackett Work Phone: 8(966)150-136760 [place] [address] 01-19-2023 11:06-0400 SaO2% (BldA) [Mass fraction] 100 % Dr. Rochelle Hackett Work Phone: 0(477)728-617860 [place] [address] 11-14-2022 08:33-0500 Body height 170.2 cm Rochelle Hackett MD Work Phone: 7(719)093-850410 [place] [address] 11-14-2022 08:33-0500 Body temperature 96.01 [degF] Rochelle Hackett MD Work Phone: 4(628)332-986810 [place] [address] 11-14-2022 08:33-0500 Body weight 51.71 kg Rochelle Hackett MD Work Phone: 5(990)786-041110 [place] [address] 11-14-2022 08:33-0500 Diastolic blood pressure 62 mm[Hg] Rochelle Hackett MD Work Phone: 9(318)252-206410 [place] [address] 11-14-2022 08:33-0500 Heart rate 64 /min Rochelle Hackett MD Work Phone: 1(845)132-968710 [place] [address] 11-14-2022 08:33-0500 Respiratory rate 12 /min Rochelle Hackett MD Work Phone: 1(694)899-548910 [place] [address] 11-14-2022 08:33-0500 SaO2% (BldA) [Mass fraction] 100 % Rochelle Hackett MD Work Phone: 8(991)725-866010 [place] [address] 11-14-2022 08:33-0500 Systolic blood pressure 122 mm[Hg] Rochelle Hackett MD Work Phone: 4(334)453-938310 [place] [address] 10-14-2022 17:14-0500 Diastolic blood pressure 58 mm[Hg] Dr. Rochelle Hackett Work Phone: 8(991)033-842441 [place] [address] 10-14-2022 17:14-0500 Heart rate 82 /min Dr. Rochelle Hackett Work Phone: 8(288)595-758460 [place] [address] 10-14-2022 17:14-0500 Systolic blood pressure 110 mm[Hg] Dr. Rochelle Hackett Work Phone: 8(995)463-821360 [place] [address] 10-14-2022 13:59-0500 Body height 170.[address] Rochelle Hackett Work Phone: 6(247)686-103560 [place] [address] 10-14-2022 13:59-0500 Body mass index (BMI) [Ratio] 18.7 kg/m2 Dr. Rochelle Hackett Work Phone: 0(543)027-554841 [place] [address] 10-14-2022 13:59-0500 Body temperature 98.4 [degF] Dr. Rochelle Hackett Work Phone: 9(796)461-362360 [place] [address] 10-14-2022 13:59-0500 Body weight 54.[address] Rochelle Hackett Work Phone: 4(438)895-005960 [place] [address] 10-14-2022 13:59-0500 Respiratory rate 17 /min Dr. Rochelle Hackett Work Phone: 9(056)090-212060 [place] [address] 10-14-2022 13:59-0500 SaO2% (BldA) [Mass fraction] 99 % Dr. Rochelle Hackett Work Phone: 3(203)065-206860 [place] [address] 10-08-2022 13:27-0500 Body mass index (BMI) [Ratio] 18.3 kg/m2 Dr. Rochelle Hackett Work Phone: 6(810)602-350460 [place] [address] 10-08-2022 13:27-0500 Body temperature 97.4 [degF] Dr. Rochelle Hackett Work Phone: 7(227)626-665660 [place] [address] 10-08-2022 13:27-0500 Body weight 53.[address] Rochelle Hackett Work Phone: 6(390)816-235060 [place] [address] 10-08-2022 13:27-0500 Diastolic blood pressure 81 mm[Hg] Dr. Rochelle Hackett Work Phone: 7(350)675-754360 [place] [address] 10-08-2022 13:27-0500 Heart rate 65 /min Dr. Rochelle Hackett Work Phone: 2(888)308-843960 [place] [address] 10-08-2022 13:27-0500 Respiratory rate 16 /min Dr. Rochelle Hackett Work Phone: 2(663)191-839160 [place] [address] 10-08-2022 13:27-0500 SaO2% (BldA) [Mass fraction] 97 % Dr. Rochelle Hackett Work Phone: 6(798)929-464060 [place] [address] 10-08-2022 13:27-0500 Systolic blood pressure 149 mm[Hg] Dr. Rochelle Hackett Work Phone: [facility] 09-05-2022 17:40-0500 Body temperature 98.4 [degF] Ron Wong MD Work Phone: [facility] 09-05-2022 17:40-0500 Body weight 53.43 kg Ron Wong MD Work Phone: [facility] 09-05-2022 17:40-0500 Diastolic blood pressure 82 mm[Hg] Ron Wong MD Work Phone: [facility] 09-05-2022 17:40-0500 Heart rate 70 /min Ron Wong MD Work Phone: [facility] 09-05-2022 17:40-0500 Respiratory rate 18 /min Ron Wong MD Work Phone: [facility] 09-05-2022 17:40-0500 SaO2% (BldA) [Mass fraction] 99 % Ron Wong MD Work Phone: [facility] 09-05-2022 17:40-0500 Systolic blood pressure 138 mm[Hg] Ron Wong MD Work Phone: [facility] 08-19-2022 08:52-0500 Body temperature 97.59 [degF] Lori Patel APRN.FLIGHT FOLLOWER Work Phone: [facility] 08-19-2022 08:52-0500 Body weight 52.34 kg Lori Patel APRN.FLIGHT FOLLOWER Work Phone: [facility] 08-19-2022 08:52-0500 Diastolic blood pressure 84 mm[Hg] Lori Patel APRN.FLIGHT FOLLOWER Work Phone: [facility] 08-19-2022 08:52-0500 Heart rate 74 /min Lori Patel APRN.FLIGHT FOLLOWER Work Phone: [facility] 08-19-2022 08:52-0500 Respiratory rate 18 /min Lori Patel APRN.FLIGHT FOLLOWER Work Phone: [facility] 08-19-2022 08:52-0500 SaO2% (BldA) [Mass fraction] 99 % Lori Patel APRN.FLIGHT FOLLOWER Work Phone: [facility] 08-19-2022 08:52-0500 Systolic blood pressure 144 mm[Hg] Lori Patel APRN.FLIGHT FOLLOWER Work Phone: [facility] 08-17-2022 05:46-0500 Diastolic blood pressure 72 mm[Hg] Dr. Rochelle Hackett Work Phone: [facility] 08-17-2022 05:46-0500 Heart rate 82 /min Dr. Rochelle Hackett Work Phone: [facility] 08-17-2022 05:46-0500 Respiratory rate 16 /min Dr. Rochelle Hackett Work Phone: [facility] 08-17-2022 05:46-0500 SaO2% (BldA) [Mass fraction] 98 % Dr. Rochelle Hackett Work Phone: [facility] 08-17-2022 05:46-0500 Systolic blood pressure 139 mm[Hg] Dr. Rochelle Hackett Work Phone: [facility] 08-17-2022 00:16-0500 Body height 170.[address] Rochelle Hackett Work Phone: [facility] Work Phone: 08-17-2022 00:16-0500 Body mass index (BMI) [Ratio] 18.6 kg/m2 Dr. Rochelle Hackett Work Phone: [facility] 08-17-2022 00:16-0500 Body temperature 97.7 [degF] Dr. Rochelle Hackett Work Phone: [facility] 08-17-2022 00:16-0500 Body weight [address] Rochelle Hackett Work Phone: [facility] 07-11-2022 11:25-0400 Body temperature 97.5 [degF] Justine Athy PA-C Work Phone: [facility] 07-11-2022 11:25-0400 Body weight 55.07 kg Justine Athy PA-C Work Phone: [facility] 07-11-2022 11:25-0400 Diastolic blood pressure 82 mm[Hg] Justine Athy PA-C Work Phone: [facility] 07-11-2022 11:25-0400 Heart rate 68 /min Justine Athy PA-C Work Phone: [facility] 07-11-2022 11:25-0400 Respiratory rate 18 /min Justine Athy PA-C Work Phone: [facility] 07-11-2022 11:25-0400 SaO2% (BldA) [Mass fraction] 100 % Justine Athy PA-C Work Phone: [facility] 07-11-2022 11:25-0400 Systolic blood pressure 132 mm[Hg] Justine Athy PA-C Work Phone: [facility] 07-07-2022 10:05-0400 Body temperature 97.81 [degF] Sofía Bogner PA-C Work Phone: [facility] 07-07-2022 10:05-0400 Body weight 53.98 kg Sofía Bogner PA-C Work Phone: [facility] 07-07-2022 10:05-0400 Diastolic blood pressure 68 mm[Hg] Sofía Bogner PA-C Work Phone: [facility] 07-07-2022 10:05-0400 Heart rate 66 /min Sofía Bogner PA-C Work Phone: [facility] 07-07-2022 10:05-0400 Respiratory rate 16 /min Sofía Bogner PA-C Work Phone: [facility] 07-07-2022 10:05-0400 SaO2% (BldA) [Mass fraction] 100 % Sofía Bogner PA-C Work Phone: [facility] 07-07-2022 10:05-0400 Systolic blood pressure 122 mm[Hg] Sofía Baig PA-C Work Phone: [facility] 07-02-2022 10:32-0400 Body mass index (BMI) [Ratio] 18.6 kg/m2 Dr. Rochelle Hackett Work Phone: [facility] Work Phone: 07-02-2022 10:32-0400 Body weight 53.[address] Rochelle Hackett Work Phone: [facility] Work Phone: 07-02-2022 10:32-0400 Diastolic blood pressure 83 mm[Hg] Dr. Rochelle Hackett Work Phone: [facility] Work Phone: 07-02-2022 10:32-0400 Heart rate 58 /min Dr. Rochelle Hackett Work Phone: [facility] Work Phone: 07-02-2022 10:32-0400 Respiratory rate 18 /min Dr. Rochelle Hackett Work Phone: [facility] Work Phone: 07-02-2022 10:32-0400 SaO2% (BldA) [Mass fraction] 100 % Dr. Rochelle Hackett Work Phone: [facility] Work Phone: 07-02-2022 10:32-0400 Systolic blood pressure 147 mm[Hg] Dr. Rochelle Hackett Work Phone: [facility] Work Phone: 06-06-2022 17:58-0400 Body height 170.[address] Rochelle Hackett Work Phone: [facility] Work Phone: 06-06-2022 17:58-0400 Body mass index (BMI) [Ratio] 18.8 kg/m2 Dr. Rochelle Hackett Work Phone: [facility] Work Phone: 06-06-2022 17:58-0400 Body temperature 97.3 [degF] Dr. Rochelle Hackett Work Phone: [facility] Work Phone: 06-06-2022 17:58-0400 Body weight 54.[address] Rochelle Hackett Work Phone: [facility] Work Phone: 06-06-2022 17:58-0400 Diastolic blood pressure 78 mm[Hg] Dr. Rochelle Hackett Work Phone: [facility] Work Phone: 06-06-2022 17:58-0400 Heart rate 66 /min Dr. Rochelle Hackett Work Phone: [facility] Work Phone: 06-06-2022 17:58-0400 Respiratory rate 15 /min Dr. Rochelle Hackett Work Phone: [facility] Work Phone: 06-06-2022 17:58-0400 SaO2% (BldA) [Mass fraction] 99 % Dr. Rochelle Hackett Work Phone: [facility] Work Phone: 06-06-2022 17:58-0400 Systolic blood pressure 128 mm[Hg] Dr. Rochelle Hackett Work Phone: [facility] Work Phone: 05-29-2022 14:10-0400 Diastolic blood pressure 80 mm[Hg] Dr. Rochelle Hackett Work Phone: [facility] Work Phone: 05-29-2022 14:10-0400 Systolic blood pressure 154 mm[Hg] Dr. Rochelle Hackett Work Phone: [facility] Work Phone: 05-29-2022 11:19-0400 Body height 170.[address] Rochelle Hackett Work Phone: [facility] Work Phone: 05-29-2022 11:19-0400 Body mass index (BMI) [Ratio] 18.8 kg/m2 Dr. Rochelle Hackett Work Phone: [facility] Work Phone: 05-29-2022 11:19-0400 Body temperature 98.2 [degF] Dr. Rochelle Hackett Work Phone: [facility] Work Phone: 05-29-2022 11:19-0400 Body weight 54.[address] Rochelle Hackett Work Phone: [facility] Work Phone: 05-29-2022 11:19-0400 Heart rate 63 /min Dr. Rochelle Hackett Work Phone: [facility] Work Phone: 05-29-2022 11:19-0400 Respiratory rate 15 /min Dr. Rochelle Hackett Work Phone: [facility] Work Phone: 05-29-2022 11:19-0400 SaO2% (BldA) [Mass fraction] 99 % Dr. Rochelle Hackett Work Phone: [facility] Work Phone: 05-16-2022 08:47-0400 Body height 170.2 cm Rochelle Hackett MD Work Phone: [facility] 05-16-2022 08:47-0400 Body temperature 96.8 [degF] Rochelle Hackett MD Work Phone: [facility] 05-16-2022 08:47-0400 Body weight 53.52 kg Rochelle Hackett MD Work Phone: [facility] 05-16-2022 08:47-0400 Diastolic blood pressure 70 mm[Hg] Rochelle Hackett MD Work Phone: [facility] 05-16-2022 08:47-0400 Heart rate 62 /min Rochelle Hackett MD Work Phone: [facility] 05-16-2022 08:47-0400 Respiratory rate 12 /min Rochelle Hackett MD Work Phone: [facility] 05-16-2022 08:47-0400 SaO2% (BldA) [Mass fraction] 99 % Rochelle Hackett MD Work Phone: [facility] 05-16-2022 08:47-0400 Systolic blood pressure 110 mm[Hg] Rochelle Hackett MD Work Phone: [facility] 05-14-2022 11:37-0400 Body height 170.[address] Rochelle Hackett Work Phone: [facility] Work Phone: 04-21-2022 15:33-0400 Body height 170.2 cm Jessy FRANKLINHopper Work Phone: [facility] 04-21-2022 15:33-0400 Body weight 53.07 kg Jessy Pina [employer] Work Phone: [facility] 04-09-2022 11:26-0400 Body mass index (BMI) [Ratio] 18.3 kg/m2 Dr. Rochelle Hackett Work Phone: [facility] Work Phone: 04-09-2022 11:26-0400 Body temperature 97.4 [degF] Dr. Rochelle Hackett Work Phone: [facility] Work Phone: 04-09-2022 11:26-0400 Body weight 53.[address] Rochelle Hackett Work Phone: [facility] Work Phone: 04-09-2022 11:26-0400 Diastolic blood pressure 82 mm[Hg] Dr. Rochelle Hackett Work Phone: [facility] Work Phone: 04-09-2022 11:26-0400 Heart rate 57 /min Dr. Rochelle Hackett Work Phone: [facility] Work Phone: 04-09-2022 11:26-0400 Respiratory rate 16 /min Dr. Rochelle Hackett Work Phone: [facility] Work Phone: 04-09-2022 11:26-0400 SaO2% (BldA) [Mass fraction] 100 % Dr. Rochelle Hackett Work Phone: [facility] Work Phone: 04-09-2022 11:26-0400 Systolic blood pressure 182 mm[Hg] Dr. Rochelle Hackett Work Phone: [facility] Work Phone: 03-18-2022 09:17-0400 Body height 170.[address] Rochelle Hackett Work Phone: [facility] Work Phone: 03-18-2022 09:17-0400 Body mass index (BMI) [Ratio] 18.8 kg/m2 Dr. Rochelle Hackett Work Phone: [facility] Work Phone: 03-18-2022 09:17-0400 Body weight 54.[address] Rochelle Hackett Work Phone: [facility] Work Phone: 03-18-2022 09:17-0400 Diastolic blood pressure 78 mm[Hg] Dr. Rochelle Hackett Work Phone: [facility] Work Phone: 03-18-2022 09:17-0400 Heart rate 57 /min Dr. Rochelle Hackett Work Phone: [facility] Work Phone: 03-18-2022 09:17-0400 Respiratory rate 18 /min Dr. Rochelle Hackett Work Phone: [facility] Work Phone: 03-18-2022 09:17-0400 SaO2% (BldA) [Mass fraction] 95 % Dr. Rochelle Hackett Work Phone: [facility] Work Phone: 03-18-2022 09:17-0400 Systolic blood pressure 129 mm[Hg] Dr. Rochelle Hackett Work Phone: [facility] Work Phone: 02-07-2022 10:14-0400 Body temperature 97.59 [degF] Alice Gregory SERVICES DELIVERY DRIVER.FLIGHT FOLLOWER Work Phone: [facility] 02-07-2022 10:14-0400 Body weight 54.7 kg Alice Gregory SERVICES DELIVERY DRIVER.FLIGHT FOLLOWER Work Phone: [facility] 02-07-2022 10:14-0400 Diastolic blood pressure 70 mm[Hg] Alice Gregory SERVICES DELIVERY DRIVER.FLIGHT FOLLOWER Work Phone: [facility] 02-07-2022 10:14-0400 Heart rate 60 /min Alice Gregory SERVICES DELIVERY DRIVER.FLIGHT FOLLOWER Work Phone: [facility] 02-07-2022 10:14-0400 Respiratory rate 16 /min Alice Gregory SERVICES DELIVERY DRIVER.FLIGHT FOLLOWER Work Phone: [facility] 02-07-2022 10:14-0400 SaO2% (BldA) [Mass fraction] 100 % Alice Gregory SERVICES DELIVERY DRIVER.FLIGHT FOLLOWER Work Phone: [facility] 02-07-2022 10:14-0400 Systolic blood pressure 126 mm[Hg] Alice Gregory SERVICES DELIVERY DRIVER.FLIGHT FOLLOWER Work Phone: [facility] 11-25-2021 19:28-0400 Diastolic blood pressure 92 mm[Hg] Dr. Rochelle Hackett Work Phone: [facility] Work Phone: 11-25-2021 19:28-0400 Systolic blood pressure 142 mm[Hg] Dr. Rochelle Hackett Work Phone: [facility] Work Phone: 11-25-2021 19:28-0400 Diastolic blood pressure 92 mm[Hg] Dr. Rochelle Hackett Work Phone: [facility] Work Phone: 11-25-2021 19:28-0400 Systolic blood pressure 142 mm[Hg] Dr. Rochelle Hackett Work Phone: [facility] Work Phone: 11-25-2021 13:05-0400 Body temperature 98.2 [degF] Dr. Rochelle Hackett Work Phone: [facility] Work Phone: 11-25-2021 13:05-0400 Heart rate 50 /min Dr. Rochelle Hackett Work Phone: [facility] Work Phone: 11-25-2021 13:05-0400 Respiratory rate 18 /min Dr. Rochelle Hackett Work Phone: [facility] Work Phone: 11-25-2021 13:05-0400 SaO2% (BldA) [Mass fraction] 99 % Dr. Rochelle Hackett Work Phone: [facility] Work Phone: 10-25-2021 00:53-0500 Body temperature 98 [degF] Dr. Rochelle Hackett Work Phone: [facility] Work Phone: 10-25-2021 00:53-0500 Diastolic blood pressure 74 mm[Hg] Dr. Rochelle Hackett Work Phone: [facility] Work Phone: 10-25-2021 00:53-0500 Heart rate 62 /min Dr. Rochelle Hackett Work Phone: [facility] Work Phone: 10-25-2021 00:53-0500 Respiratory rate 16 /min Dr. Rochelle Hackett Work Phone: [facility] Work Phone: 10-25-2021 00:53-0500 SaO2% (BldA) [Mass fraction] 98 % Dr. Rochelle Hackett Work Phone: [facility] Work Phone: 10-25-2021 00:53-0500 Systolic blood pressure 142 mm[Hg] Dr. Rochelle Hackett Work Phone: [facility] Work Phone: 10-24-2021 20:50-0500 Body height 170.[address] Rochelle Hackett Work Phone: [facility] Work Phone: 10-24-2021 20:50-0500 Body mass index (BMI) [Ratio] 19.5 kg/m2 Dr. Rochelle Hackett Work Phone: [facility] Work Phone: 10-24-2021 20:50-0500 Body weight 56.[address] Rochelle Hackett Work Phone: [facility] Work Phone: 09-26-2021 11:51-0500 Body mass index (BMI) [Ratio] 18.6 kg/m2 Dr. Rochelle Hackett Work Phone: [facility] 09-26-2021 11:51-0500 Body weight 53.[address] Rochelle Hackett Work Phone: [facility] 09-26-2021 10:51-0500 Body mass index (BMI) [Ratio] 18.6 kg/m2 Dr. Rochelle Hackett Work Phone: [facility] Work Phone: 09-26-2021 10:51-0500 Body weight 53.[address] Rochelle Hackett Work Phone: [facility] Work Phone: 09-26-2021 10:01-0500 Body mass index (BMI) [Ratio] 18.5 kg/m2 Dr. Rochelle Hackett Work Phone: [facility] Work Phone: 09-26-2021 10:01-0500 Body temperature 97.2 [degF] Dr. Rochelle Hackett Work Phone: [facility] Work Phone: 09-26-2021 10:01-0500 Body weight 53.[address] Rochelle Hackett Work Phone: [facility] Work Phone: 09-26-2021 10:01-0500 Diastolic blood pressure 78 mm[Hg] Dr. Rochelle Hackett Work Phone: [facility] Work Phone: 09-26-2021 10:01-0500 Heart rate 67 /min Dr. Rochelle Hackett Work Phone: [facility] Work Phone: 09-26-2021 10:01-0500 Respiratory rate 16 /min Dr. Rochelle Hackett Work Phone: [facility] Work Phone: 09-26-2021 10:01-0500 SaO2% (BldA) [Mass fraction] 97 % Dr. Rochelle Hackett Work Phone: [facility] Work Phone: 09-26-2021 10:01-0500 Systolic blood pressure 134 mm[Hg] Dr. Rochelle Hackett Work Phone: [facility] Work Phone: 12-10-2020 13:44-0400 Body temperature 97.7 [degF] Dr. Rochelle Hackett Work Phone: [facility] 12-10-2020 13:44-0400 Diastolic blood pressure 78 mm[Hg] Dr. Rochelle Hackett Work Phone: [facility] 12-10-2020 13:44-0400 Heart rate 60 /min Dr. Rochelle Hackett Work Phone: [facility] 12-10-2020 13:44-0400 Respiratory rate 16 /min Dr. Rochelle Hackett Work Phone: [facility] 12-10-2020 13:44-0400 SaO2% (BldA) [Mass fraction] 100 % Dr. Rochelle Hackett Work Phone: [facility] 12-10-2020 13:44-0400 Systolic blood pressure 153 mm[Hg] Dr. Rochelle Hackett Work Phone: [facility] 08-03-2017 12:08-0500 BMI (Body Mass Index) 18.27 kg/m2 Handy Rsusell NP [facility] Work Phone: 08-03-2017 12:08-0500 BP Diastolic 80 mm[Hg] Handy Russell GARLAND MACHINE OPERATOR [facility] Work Phone: 08-03-2017 12:08-0500 BP Systolic 128 mm[Hg] Handy Russell GARLAND MACHINE OPERATOR [facility] Work Phone: 08-03-2017 12:08-0500 Height 171.45 cm Handy Russell GARLAND MACHINE OPERATOR [facility] Work Phone: 08-03-2017 12:08-0500 Pulse (Heart Rate) 66 /min Handy Russell GARLAND MACHINE OPERATOR [facility] Work Phone: 08-03-2017 12:08-0500 Weight 53.71 kg Handy Russell GARLAND MACHINE OPERATOR [facility] Work Phone: 06-03-2017 14:42-0400 Body Temperature 97.7 [degF] Handy Russell NP [facility] Work Phone: 06-03-2017 14:42-0400 Height 171.45 cm Handy Russell NP [facility] Work Phone: 06-03-2017 14:42-0400 Respiratory Rate 20 /min Handy Russell GARLAND MACHINE OPERATOR [facility] Work Phone: 06-03-2017 14:42-0400 Weight 52.07 kg Handy Russell NP [facility] Work Phone: 11-05-2016 14:41-0500 BSA (Body Surface Area) 1.63 m2 Handy Russell NP [facility] Work Phone: 10-16-2015 14:27-0500 BP Diastolic 44 mm[Hg] Handy Russell GARLAND MACHINE OPERATOR [facility] Work Phone: 10-16-2015 14:27-0500 BP Systolic 88 mm[Hg] Handy Russell NP [facility] Work Phone: 10-16-2015 14:27-0500 Pulse (Heart Rate) 64 /min Handy Russell NP [facility] Work Phone: Encounters Encounter Date Encounter Type Care Provider Facility Start: 02-22-2025 End: 02-22-2025 Refill Rochelle Hackett MD Work Phone: Internal Medicine [place] Comment on above: Refill Request Start: 02-21-2025 End: 02-21-2025 ambulatory [facility] Start: 02-14-2025 End: 02-14-2025 [facility] Facility:[facility] Start: 02-10-2025 End: 02-10-2025 Office outpatient visit 25 minutes Rochelle Hackett MD Work Phone: Internal Medicine [place] Comment on above: Osteoporosis, unspec ified osteoporosis type, unspecified pathological fracture presence (Primary Dx); Insomnia, unspecified type; Dizziness; SIADH (syndrome of inappropriate ADH production) ([facility]); Protein-calorie malnutrition, unspecified severity ([facility]); Anxiety and depression; Gastroesophageal reflux disease, unspecified whether esophagitis present; Vitamin D deficiency; Frail elderly; Mixed hyperlipidemia; Essential (primary) hypertension; Adrenal insufficiency ([facility]) Start: 02-10-2025 End: 02-10-2025 ambulatory [facility] Facility:[facility] Start: 02-07-2025 End: 02-07-2025 [facility] Facility:[facility] Start: 01-12-2025 ambulatory [facility] Facility: [facility] Start: 12-28-2024 End: 12-28-2024 ambulatory [facility] Facility:[facility] Start: 12-27-2024 End: 12-27-2024 ambulatory Anayeli Pettit RN Work Phone: [employer] Comment on above: Bi-Weekly Outreach ( Recurring) for Chronic Disease Management Start: 12-26-2024 End: 12-26-2024 ambulatory [facility] Facility:[facility] Start: 12-20-[address] Rochelle hughes MD -Physical Therapy Work Phone: Start: 12-20-2024 End: 12-20-[address] Rochelle Hackett MD Work Phone: [facility] Work Phone: Start: 12-20-2024 End: 12-20-[address] Eagle Enciso MD -Laboratory Work Phone: Start: 12-20-2024 End: 12-20-2024 ambulatory [facility] Facility:[facility] Start: 12-13-2024 End: 12-13-2024 ambulatory Anayeli Pettit RN Work Phone: [employer] Comment on above: Bi-Weekly Outreach ( Recurring) for Chronic Disease Management Start: 12-09-2024 End: 12-09-2024 [facility] Start: 12-09-2024 End: 12-09-2024 Patient encounter procedure Nancy Rangel MA [facility] Comment on above: Population Health Na vigation Outreach (Aco high risk attempt # 1) Start: 11-29-2024 End: 11-29-2024 ambulatory Anayeli Pettit RN Work Phone: [employer] Comment on above: Bi-Weekly Outreach ( Recurring) for Chronic Disease Management Start: 11-16-2024 End: 11-16-2024 ambulatory Anayeli Pettit RN Work Phone: [employer] Comment on above: Bi-Weekly Outreach ( Recurring) for Chronic Disease Management Start: 11-10-2024 End: 11-10-2024 ambulatory No Pcp (Hist) [facility] Start: 11-10-2024 End: 11-10-2024 Patient encounter procedure No Pcp (Hist) [facility] Start: 11-08-2024 End: 11-08-2024 Telephone encounter Rochelle Hackett MD Work Phone: Internal [facility] [place] Comment on above: Orders ([facility]) Start: 11-08-2024 End: 11-08-2024 ambulatory ROCHELLE HACKETT Facility:[facility] Start: 11-08-2024 End: 11-08-2024 Office outpatient visit 25 minutes Rochelle Hackett MD Work Phone: [facility] [place] Comment on above: Ambulatory dysfuncti on (Primary Dx); Dizziness; Frequent falls; Osteoporosis, unspecified osteoporosis type, unspecified pathological fracture presence; Insomnia, unspecified type Start: 11-07-2024 End: 11-07-2024 Follow-up encounter Al Nichole APRN.CNP Work Phone: [facility] [place] Comment on above: Compression fracture of T12 vertebra with routine healing, subsequent encounter (Primary Dx); Compression fracture of body of thoracic vertebra (HCC) Start: 11-07-2024 End: 11-07-2024 Telephone encounter Rochelle Hackett MD Work Phone: [facility] [place] Comment on above: Pain Management Refe rral Start: 11-03-2024 End: 01-03-2025 Follow-up encounter Al Nichole APRN.CNP Work Phone: [facility] [place] Start: 11-03-2024 End: 11-04-2024 Telephone encounter Rochelle Hackett MD Work Phone: Internal Medicine [place] Comment on above: Patient Question Start: 11-02-2024 End: 11-02-2024 Subsequent hospital visit by physician Tonie [facility] [place] Work Phone: Radiology Comment on above: Acute midline back p ain, unspecified back location [M54.9] Start: 11-02-2024 End: 11-02-2024 ambulatory LA NICHOLE Facility:[facility] Start: 11-02-2024 End: 11-02-2024 Patient encounter procedure Al Dayanara GONZALEZFLIGHT FOLLOWER Work Phone: Internal Medicine [place] Comment on above: Fall, subsequent enc ounter (Primary Dx); Acute midline back pain, unspecified back location; Dysuria; Hyponatremia; Hypokalemia Start: 11-01-2024 End: 11-01-2024 ambulatory Anayeli Pettit RN Work Phone: [employer] Comment on above: Bi-Weekly Outreach ( Recurring) for Chronic Disease Management Start: 10-30-2024 End: 10-30-2024 Emergency department patient visit Dr. Tejinder Mora MD -Emergency Department Work Phone: Start: 10-17-2024 End: 10-17-2024 ambulatory Anayeli Pettit RN Work Phone: [employer] Comment on above: Initial enrollment o raghavendra for Chronic Disease Management Start: 10-14-2024 End: 10-14-[address] Maya Sal MD -Sleep Lab Work Phone: Start: 10-14-2024 End: 10-14-2024 ambulatory [facility] Facility:[facility] Start: 10-11-2024 End: 10-11-2024 [facility]ulatory [facility] Start: 10-11-2024 End: 10-11-2024 Patient encounter procedure Dipika Mohr MA [facility] Comment on above: Population Health Na vigation Outreach ([place] ) Start: 09-29-2024 ambulatory [facility] Facility :[facility] Start: 09-29-2024 End: 09-29-2024 Telemedicine consultation with patient Maya Sal MD Work Phone: Sleep Medicine [facility] Comment on above: Hypersomnia (Primary Dx) Start: 09-20-2024 ambulatory [facility] Facility:[facility] Start: 09-20-[address] Shirley Nguyễn MD -[facility] Start: 09-09-2024 End: 09-09-[address] Brian Cooley MD -[facility] Work Phone: Start: 09-09-2024 End: 09-09-2024 ambulatory [facility] Start: 07-21-2024 End: 07-28-2024 Telephone encounter Rochelle Hackett MD Work Phone: Internal Medicine [place] Start: 07-13-2024 End: 07-13-2024 ambulatory [facility] Facility:[facility] Start: 07-04-2024 End: 07-04-2024 ambulatory [facility] Start: 06-28-2024 End: 06-28-2024 ambulatory [facility] Facility:[facility] Start: 06-28-2024 End: 06-28-2024 Patient encounter procedure Sol Harvey Work Phone: Podiatry Comment on above: Open wound of toe, i nitial encounter (Primary Dx) Start: 06-25-2024 End: 06-25-2024 Emergency department patient visit [facility] Start: 06-10-2024 End: 07-14-2024 [facility] Work Phone: Neurology Comment on above: Psg Check In (Adult) Start: 06-07-2024 End: 06-07-2024 ambulatory [facility] Facility:[facility] Start: 06-02-2024 End: 06-02-2024 ambulatory [facility] Facility:[facility] Start: 06-02-2024 End: 06-02-2024 Patient encounter procedure Sol Harvey Work Phone: Podiatry Comment on above: Ingrowing toenail (P rimary Dx) Start: 05-31-2024 End: 05-31-2024 ambulatory [facility] Facility:[facility] Start: 05-20-2024 End: 05-20-2024 Telephone encounter Rochelle Hackett MD Work Phone: [facility] [place] Comment on above: Results Start: 05-18-2024 End: 05-18-2024 Patient encounter procedure Rochelle Hackett MD Work Phone: [facility] [place] Comment on above: Frail elderly (Prima ry Dx); Exhaustion; Sleep apnea, unspecified type; Vitamin D deficiency; Iron deficiency; Other fatigue Start: 05-18-2024 End: 05-18-2024 [facility] Facility:[facility] Start: 05-17-2024 End: 05-17-2024 [facility] Facility:[facility] Start: 05-03-2024 End: 05-06-2024 ambulatory Rochelle Hackett MD Work Phone: Internal Medicine [place] [phone] Start: 04-22-2024 End: 04-22-2024 ambulatory SOL HARVEY Facility:[facility] Start: 04-22-2024 End: 04-22-2024 Patient encounter procedure Sol Farmermirna Work Phone: Podiatry Comment on above: Onychomycosis (Prima ry Dx); Ingrowing toenail Start: 04-12-2024 Telephone encounter Al Nichole APRN.CNP Work Phone: [facility] [place] Comment on above: Orders Start: 04-12-2024 End: 04-12-2024 [facility] Facility:[facility] Start: 04-12-2024 End: 04-12-2024 Office outpatient visit 25 minutes Rochelle Hackett MD Work Phone: Internal Medicine [place] Comment on above: Vitamin B12 deficien cy (Primary Dx); Iron deficiency anemia, unspecified iron deficiency anemia type; Protein-calorie malnutrition, unspecified severity (HCC); Malignant neoplasm of upper-inner quadrant of left breast in female, estrogen receptor positive (HCC); Major depressive disorder, recurrent, in partial remission (HCC); Osteoporosis, unspecified osteoporosis type, unspecified pathological fracture presence; Mild cognitive disorder Start: 03-08-2024 End: 03-08-2024 ambulatory [facility] Start: 03-08-2024 End: 03-08-2024 [facility] Facility:[facility] Start: 03-03-2024 End: 03-03-2024 [facility] Facility:[facility] Start: 01-23-2024 End: 01-23-2024 Emergency department patient visit Dr. Rochelle Hackett Work Phone: [facility]-Emergency Department Work Phone: Start: 01-18-2024 End: 01-18-[address] Rochelle Hackett Work Phone: [facility] Work Phone: Start: 12-30-2023 End: 12-30-[address] Rochelle Hackett Work Phone: [facility] Work Phone: Start: 12-30-2023 End: 12-30-[address] Rochelle Hackett Work Phone: [facility]-Physical Therapy Work Phone: Start: 12-29-2023 End: 12-29-[address] Rochelle Hackett Work Phone: [facility] Work Phone: Start: 12-25-[address] Yuval Hackett Work Phone: [facility]-Physical Therapy Work Phone: Start: 12-18-2023 End: 12-18-[address] Rochelle Hackett Work Phone: [facility] Work Phone: Start: 12-18-2023 End: 12-18-[address] Rochelle Hackett Work Phone: [facility]-Laboratory Work Phone: Start: 12-15-2023 End: 12-15-2023 Office outpatient visit 25 minutes Sara Rangel APRN.BLUEPRINTING AND PHOTOCOPY SUPERVISOR Work Phone: Internal Medicine [place] Comment on above: Urinary incontinence , unspecified type (Primary Dx); Urinary tract infection without hematuria, site unspecified Start: 12-08-2023 End: 12-08-2023 Emergency department patient visit Dr. Rochelle Hackett Work Phone: [facility]-Emergency Department Work Phone: Start: 12-07-[address] [facility] Start: 11-26-2023 End: 11-26-[address] Rochelle Hackett Work Phone: [facility] Work Phone: Start: 11-22-2023 Non-patient / Non-visit Dr. Bulmaro Hackett Work Phone: [facility] Work Phone: Start: 11-21-2023 End: 11-22-2023 Evaluation and management of inpatient Dr. Rochelle Hackett [facility] Work Phone: Start: 11-21-2023 End: 11-22-[address] Rochelle Hackett Work Phone: [facility] Work Phone: Start: 11-17-2023 End: 11-17-2023 Subsequent hospital visit by physician [facility] (I-Stat) Work Phone: Cat Scan Comment on above: TIA (transient ische aura attack) [G45.9] Start: 11-16-[address] [facility] Start: 11-02-2023 End: 11-02-2023 Patient encounter procedure Irish Warren APRN.FLIGHT FOLLOWER Work Phone: Internal Medicine [place] Comment on above: TIA (transient ische aura attack) (Primary Dx); Aphasia; Ocular migraine; Yeast dermatitis Start: 11-02-2023 Telephone encounter Rochelle staton MD Work Phone: Internal Medicine [place] Comment on above: infected belly butto n; Problems with speaking and thought process Start: 10-30-2023 End: 10-30-2023 Patient encounter procedure Carlos Sheth MD Work Phone: General Surgery Comment on above: Mastodynia (Primary Dx); Costochondritis Start: 10-26-2023 End: 10-26-[address] Rochelle Hackett Work Phone: [facility] Work Phone: Start: 10-23-2023 Telephone encounter Rochelle staton MD Work Phone: Internal Medicine [place] Comment on above: Release Of Medical R ecords Start: 10-20-2023 Telephone encounter Rochelle staton MD Work Phone: Internal Medicine [place] Comment on above: Patient Request Start: 10-08-2023 End: 10-08-[address] Rochelle Hackett Work Phone: [facility] Work Phone: Start: 10-07-[address] Yuval Hackett Work Phone: [facility]-Physical Therapy Work Phone: Start: 10-05-2023 End: 10-05-[address] Rochelle Hackett Work Phone: [facility] Work Phone: Start: 10-05-2023 End: 10-05-[address] Rochelle Hackett Work Phone: [facility]-Outpatient Breast Imaging Work Phone: Start: 10-01-2023 End: 10-01-[address] Rochelle Hackett Work Phone: [facility] Work Phone: Start: 10-01-[address] Yuval Hackett Work Phone: [facility] Start: 09-23-2023 End: 09-23-[address] Rochelle Hackett Work Phone: [facility] Work Phone: Start: 09-23-2023 End: 09-23-[address] Rochelle Hackett Work Phone: [facility]-Laboratory Work Phone: Start: 09-22-2023 End: 09-22-[address] Rochelle Hackett Work Phone: [facility] Work Phone: Start: 08-29-2023 End: 08-29-2023 Emergency department patient visit Dr. Rochelle Hackett Work Phone: [facility]-Emergency Department Work Phone: Start: 08-17-2023 End: 08-17-2023 Patient encounter procedure Maggi Mcdaniel PA-C Work Phone: Orthopaedics Comment on above: Chronic pain of righ t knee (Primary Dx); Primary osteoarthritis of right knee Start: 08-12-2023 Non-patient / Non-visit Dr. Bulmaro Hackett Work Phone: [facility] Work Phone: Start: 08-12-2023 Non-patient / Non-visit Dr. Bulmaro Hackett Work Phone: [facility] Start: 08-11-2023 Non-patient / Non-visit Dr. Bulmaro Hackett Work Phone: [facility] Start: 08-11-2023 End: 08-11-[address] Rochelle Hackett Work Phone: [facility] Work Phone: Start: 08-11-2023 End: 08-11-[address] Rochelle Hackett Work Phone: [facility]-Cardiovascula r Services Work Phone: Start: 08-10-2023 End: 08-10-2023 Patient encounter procedure Jatinder Vick MD Work Phone: Orthopaedics Comment on above: Primary osteoarthrit is of right knee (Primary Dx); Chronic pain of right knee Start: 07-29-2023 Orders Only Jatinder Vick MD Work Phone: Orthopaedics Comment on above: Right knee pain, uns pecified chronicity (Primary Dx) Start: 07-23-2023 ambulatory Rochelle Ramírez Work Phone: Internal Medicine [place] Comment on above: Epistaxis Start: 07-23-2023 End: 07-23-2023 Emergency department patient visit Dr. Rochelle Hackett Work Phone: [facility]-Emergency Department Work Phone: Start: 07-15-2023 End: 07-15-[address] Rochelle Hackett Work Phone: [facility] Work Phone: Start: 07-15-2023 End: 07-15-[address] Rochelle Hackett Work Phone: [facility] Work Phone: Start: 07-09-2023 End: 07-09-2023 Patient encounter procedure Al Nichole APRN.CNP Work Phone: Internal [facility] Comment on above: Diarrhea, unspecifie d type (Primary Dx); 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); Hyponatremia; Anxiety; Chronic pain of right knee; Need for influenza vaccination Start: 05-21-2023 End: 05-21-[address] Rochelle Hackett Work Phone: [facility] Work Phone: Start: 05-21-2023 End: 05-21-[address] Rochelle Hackett Work Phone: [facility]-Outpatient Breast Imaging Work Phone: Start: 05-20-2023 Non-patient / Non-visit Dr. Bulmaro Hackett Work Phone: [facility] Start: 05-20-2023 End: 05-20-[address] Rochelle Hackett Work Phone: [facility]-Pulmonary Services/Neurology Work Phone: Start: 05-08-2023 Telephone encounter Ilya Begum Adult Psychology Comment on above: Consult (Patient Out reach [facility]) Orders Start: 05-08-2023 End: 05-08-2023 Patient encounter procedure Al Nichole APRN.FLIGHT FOLLOWER Work Phone: Internal Medicine [place] Comment on above: Anxiety and depressi on (Primary Dx); Nausea; Dizziness; Diarrhea, unspecified type; Paroxysmal atrial fibrillation (HCC); Hyponatremia; Chronic fatigue disorder; Gastroesophageal reflux disease, unspecified whether esophagitis present Start: 05-05-2023 End: 05-05-[address] Rochelle Hackett Work Phone: [facility]-Physical Therapy Work Phone: Start: 04-25-2023 End: 04-25-2023 Emergency department patient visit Dr. Rochelle Hackett Work Phone: [facility]-Emergency Department Work Phone: Start: 04-23-2023 End: 04-23-[address] Rochelle Hackett Work Phone: [facility] Work Phone: Start: 04-21-2023 ambulatory Rochelle Ramírez Work Phone: Internal Medicine [facility] [place] Start: 04-20-2023 Telephone encounter Sandra rosa APRN.FLIGHT FOLLOWER Work Phone: [facility] Comment on above: Results Start: 04-17-2023 Telephone encounter Sandra rosa APRN.FLIGHT FOLLOWER Work Phone: [facility] Comment on above: Results Start: 04-16-2023 End: 04-16-2023 Subsequent hospital visit by physician Xr [facility] Work Phone: Radiology Comment on above: Diarrhea, unspecifie d type [R19.7] Start: 04-16-2023 End: 04-16-2023 Patient encounter procedure Sandra Leary APRN.FLIGHT FOLLOWER Work Phone: Family Medicine [place] Comment on above: Diarrhea, unspecifie d type (Primary Dx) APPOINTMENT CANCELLE D (Primary Dx) Start: 04-15-2023 Telephone encounter Al Nichole APRN.FLIGHT FOLLOWER Work Phone: Internal Medicine [place] Comment on above: mushy stools Start: 04-13-[address] Yuval Hackett Work Phone: [facility]-Physical Therapy Work Phone: Start: 04-11-2023 End: 04-11-[address] Rochelle Hackett Work Phone: [facility] Work Phone: Start: 04-11-2023 End: 04-11-[address] Rochelle Hackett Work Phone: [facility]-Laboratory Work Phone: Start: 04-09-[address] Yuval Hackett Work Phone: [facility] Oncology Start: 04-09-2023 End: 04-09-[address] Rochelle Hackett Work Phone: [facility] Work Phone: Start: 04-08-2023 End: 04-08-2023 Emergency department patient visit Dr. Rochelle Hackett Work Phone: [facility]-Emergency Department Work Phone: Start: 04-08-2023 ambulatory Rochelle Ramírez Work Phone: Internal Medicine [place] Comment on above: Dizziness Start: 04-08-2023 End: 04-08-2023 Patient encounter procedure Rishi Romero APRN.FLIGHT FOLLOWER Work Phone: [facility] Comment on above: Black-out (not amnes ia) (Primary Dx) Start: 04-07-2023 End: 04-07-[address] Rochelle Hackett Work Phone: [facility] Work Phone: Start: 04-07-[address] [facility] Start: 01-19-2023 End: 01-19-[address] Rochelle Hackett Work Phone: [facility] Work Phone: Start: 01-14-2023 End: 01-14-2023 Patient encounter procedure Sol Harvey Work Phone: Podiatry Comment on above: Onychomycosis (Prima ry Dx); Diminished pulses in lower extremity; Protein-calorie malnutrition, unspecified severity (HCC) Start: 11-21-2022 End: 11-21-[address] Rochelle Hackett Work Phone: [facility] Work Phone: Start: 11-21-2022 End: 11-21-[address] [facility] Start: 11-17-[address] [facility] Start: 11-14-2022 End: 11-14-2022 Patient encounter procedure Rochelle Hackett MD Work Phone: Internal Medicine [place] Comment on above: Urinary incontinence , unspecified type (Primary Dx); Paroxysmal atrial fibrillation (HCC); 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); Chronic fatigue disorder; Dizziness and giddiness; Mild cognitive disorder; Major depressive disorder, recurrent, in partial remission (HCC) Start: 11-14-2022 End: 11-14-[address] Rochelle Hackett Work Phone: [facility] Work Phone: Start: 11-14-2022 End: 11-14-[address] Rochelle Hackett Work Phone: [facility]-Laboratory Start: 10-14-2022 End: 10-14-[address] Rochelle Hackett Work Phone: [facility] Neurology Start: 10-08-[address] Yuval Hackett Work Phone: [facility] Oncology Start: 10-08-2022 End: 10-08-[address] Rochelle Hackett Work Phone: [facility] Cancer Care Start: 09-05-2022 End: 09-05-2022 Patient encounter procedure Ron Wong MD Work Phone: [facility] Comment on above: Acute COVID-19 (Prim merry Dx) Start: 09-05-2022 Refill Ron mercedes MD Work Phone: [facility] Comment on above: Med Change Request Start: 09-05-2022 Telephone encounter Rochelle staton MD Work Phone: Internal Medicine [place] Comment on above: Patient Update Start: 08-28-2022 Telephone encounter Al Nichole APRN.FLIGHT FOLLOWER Work Phone: Internal Medicine [place] Comment on above: Results Start: 08-20-2022 Telephone encounter Alice Jenkins APRN.FLIGHT FOLLOWER Work Phone: [facility] Comment on above: Results Start: 08-19-2022 End: 08-19-2022 Patient encounter procedure Lori Patel APRN.FLIGHT FOLLOWER Work Phone: [facility] Comment on above: Urinary frequency (P rimary Dx) Start: 08-17-2022 End: 08-17-2022 Emergency department patient visit Dr. Rochelle Hackett Work Phone: [facility]-Emergency Department Start: 08-15-[address] Yuval Hackett Work Phone: [facility]-Physical Therapy Start: 08-11-2022 End: 08-11-2022 Patient encounter procedure Maggi Mcdaniel PA-C Work Phone: Orthopaedics Comment on above: Primary osteoarthrit is of right knee (Primary Dx) Start: 08-04-2022 End: 08-04-2022 Patient encounter procedure Maggi Mcdaniel PA-C Work Phone: Orthopaedics Comment on above: Primary osteoarthrit is of right knee (Primary Dx) Start: 07-28-2022 End: 07-28-2022 Patient encounter procedure Maggi Mcdaniel PA-C Work Phone: Orthopaedics Comment on above: Primary osteoarthrit is of right knee (Primary Dx); Chronic pain of right knee Start: 07-11-2022 Telephone encounter Justine lindsay PA-C Work Phone: [facility] Comment on above: Results Patient Update; Insu sedrick Authorization Start: 07-11-2022 End: 07-11-2022 Patient encounter procedure Justine Irizrary PA-C Work Phone: [facility] Comment on above: Right leg swelling ( Primary Dx) Start: 07-07-2022 End: 07-07-2022 Office outpatient visit 15 minutes Sofía FRANKLIN-C Work Phone: [facility] Comment on above: Visit for suture rem oval (Primary Dx); Laceration of right index finger without damage to nail, foreign body presence unspecified, initial encounter Start: 07-02-2022 End: 07-02-[address] Rochelle Hackett Work Phone: [facility] Start: 06-20-2022 End: 06-20-[address] Rochelle Hackett Work Phone: [facility] Work Phone: Start: 06-20-2022 End: 06-20-[address] [facility] Start: 06-09-2022 End: 06-09-2022 Patient encounter procedure Maggi Mcdaniel PA-C Work Phone: Orthopaedics Comment on above: Primary osteoarthrit is of right knee (Primary Dx); Chronic pain of right knee Start: 06-07-2022 Non-patient / Non-visit Dr. Bulmaro Hackett Work Phone: [facility] Start: 06-06-2022 End: 06-06-[address] Rochelle Hackett Work Phone: [facility] Start: 05-30-[address] [facility]val [facility] Start: 05-29-2022 End: 05-29-[address] Rochelle Hackett Work Phone: [facility] Work Phone: Start: 05-29-2022 End: 05-29-[address] Rochelle Hackett Work Phone: [facility] Start: 05-29-2022 End: 05-29-[address] Rochelle Hackett Work Phone: [facility] Neurology Start: 05-16-2022 End: 05-16-[address] Rochelle Hackett Work Phone: [facility] Work Phone: Start: 05-16-2022 End: 05-16-[address] Rochelle Hackett Work Phone: [facility] Start: 05-16-[address] [facility]val Hack[facility] Start: 05-16-2022 End: 05-16-2022 Patient encounter procedure Rochelle Hackett MD Work Phone: Internal Medicine [place] Comment on above: SIADH (syndrome of i nappropriate ADH production) (HCC) (Primary Dx); Paroxysmal atrial fibrillation (HCC); Dizziness and giddiness; Chronic fatigue disorder; Mild cognitive disorder Start: 05-14-2022 End: 05-14-[address] Rochelle Hackett Work Phone: [facility] Work Phone: Start: 05-14-2022 End: 05-14-[address] Rochelle Hackett Work Phone: [facility]-Outpatient Bone Densitometry Start: 04-29-2022 ambulatory Rochelle Ramírez Work Phone: [facility] [place] Start: 04-21-2022 End: 04-21-2022 Patient encounter procedure Jsesy Pina PA-C Work Phone: Orthopaedics Comment on above: Primary osteoarthrit is of right knee (Primary Dx); Acquired genu valgum of right knee Start: 04-21-2022 End: 04-21-2022 Subsequent hospital visit by physician Radio General Blanka Bonner Work Phone: Radiology Comment on above: Pain [R52] Start: 04-17-2022 Orders Only Jessy waldron PA-C Work Phone: [facility] [place] Comment on above: Pain (Primary Dx) Start: 04-09-2022 Non-patient / Non-visit Dr. Bulmaro Hackett Work Phone: [facility] Start: 04-09-2022 End: 04-09-[address] Rochelle Hackett Work Phone: [facility]-Cardiovascula r Services Start: 04-09-2022 End: 04-09-[address] Rochelle Hackett Work Phone: [facility] Start: 04-09-[address] Yuval Hackett Work Phone: [facility] Oncology Start: 03-18-2022 End: 03-18-[address] Rochelle Hackett Work Phone: [facility]-Laboratory Start: 03-18-2022 End: 03-18-[address] Rochelle Hackett Work Phone: [facility] Start: 02-24-[address] [facility] Hack[facility] Start: 02-07-2022 End: 02-07-2022 Patient encounter procedure Alice Jenkins APRN.FLIGHT FOLLOWER Work Phone: [facility] Comment on above: Exposure to COVID-19 virus (Primary Dx) Start: 02-03-2022 Telephone encounter Rochelle staton MD Work Phone: Internal Medicine [place] Comment on above: Covid19 Concern Start: 01-20-2022 Telephone encounter Al Nichole APRN.FLIGHT FOLLOWER Work Phone: Internal Medicine [place] Comment on above: Results Start: 01-04-2022 Refill Al CollinsFLIGHT FOLLOWER Work Phone: Internal Medicine [place] Comment on above: Refill Request Start: 12-24-2021 Telephone encounter Rochelle staton MD Work Phone: Internal Medicine [place] Comment on above: Results Start: 12-04-2021 End: 12-04-[address] Rochelle Hackett Work Phone: [facility]-Laboratory Start: 11-25-2021 End: 11-25-[address] Rochelle Hackett Work Phone: [facility] Neurology Start: 11-22-2021 Telephone encounter Rochelle staton MD Work Phone: Internal Medicine [place] Comment on above: Patient Question Start: 11-16-2021 End: 11-16-[address] Rochelle Hackett Work Phone: [facility]-Laboratory Start: 11-14-[address] Rochelle aHckett Work Phone: [facility]-Laboratory Start: 10-24-2021 End: 10-25-2021 Emergency department patient visit Dr. Rochelle Hackett Work Phone: [facility]-Emergency Department Start: 10-03-2021 End: 10-03-[address] Rochelle Hackett Work Phone: [facility]-Outpatient Breast Imaging Start: 09-26-[address] Yuval Hackett Work Phone: [facility] Oncology Start: 09-26-2021 End: 09-26-[address] Rochelle Hackett Work Phone: [facility] Start: 03-26-2021 End: 03-26-2021 Subsequent hospital visit by physician Xr [facility] Work Phone: Radiology Comment on above: Acute pain of right knee [M25.561] Procedures Date Procedure Procedure Detail Performing Clinician Start: 10-30-2024 CT of head without contrast Dr. Rochelle Hackett MD Work Phone: Start: 12-08-2023 Plain chest X-ray Dr. Eri Hackett Work Phone: Start: 12-08-2023 SARS-CoV-2, Influenz a & RSV (PCR) Dr. Rochelle Hackett Work Phone: Start: 12-08-[address] Yuval Hackett Work Phone: Start: 11-21-[address] Rochelle Hackett Work Phone: Start: 11-17-2023 Ct head/brain w/o co ntrast material Irish Warren SERVICES DELIVERY DRIVER.FLIGHT FOLLOWER Work Phone: Start: 10-05-[address] Rochelle Hackett Work Phone: Start: 08-17-2023 Arthrocentesis aspir &/inj major jt/bursa w/o us Maggi Vetovitz PA-C Work Phone: Start: 08-11-2023 Radionuclide imaging of perfusion of myocardium under exercise stress Dr. Rochelle Hackett Work Phone: Start: 08-10-2023 Arthrocentesis aspir &/inj major jt/bursa w/o us Jatinder Vick MD Work Phone: Start: 07-09-2023 INFLUENZA VACCINE, P RSV FREE, AGE 65+ YR, HIGH DOSE, QUADRIVALENT (FLUZONE HIGH-DOSE) Al Nichole SERVICES DELIVERY DRIVER.FLIGHT FOLLOWER Work Phone: Start: 05-21-2023 Screening mammograph y of right breast Dr. Rochelle Hackett Work Phone: Start: 04-16-2023 Radiologic exam abdo men 1 view Sandra Leary SERVICES DELIVERY DRIVER.FLIGHT FOLLOWER Work Phone: Start: 04-08-2023 Plain chest X-ray Dr. Eri Hackett Work Phone: Start: 09-05-2022 2019 CORONAVIRUS Ron Wong MD Work Phone: Start: 08-19-2022 Urnls dip stick/tabl et rgnt auto w/o microscopy uJstine Irizarry PA-C Work Phone: Start: 08-17-2022 Diagnostic radiograp hy of abdomen Dr. Rochelle Hackett Work Phone: Start: 08-11-2022 Arthrocentesis aspir &/inj major jt/bursa w/o us Maggi Vetovitz PA-C Work Phone: Start: 08-04-2022 Arthrocentesis aspir &/inj major jt/bursa w/o us Maggi Vetovitz PA-C Work Phone: Start: 07-28-2022 Arthrocentesis aspir &/inj major jt/bursa w/o us Maggi Vetovitz PA-C Work Phone: Start: 05-14-2022 Dual energy X-ray absorptiometry Dr. Rochelle Hackett Work Phone: Start: 05-14-2022 Screening mammograph y of right breast Dr. Rochelle Hackett Work Phone: Start: 04-21-2022 Arthrocentesis aspir &/inj major jt/bursa w/o us Jessy Pina PA-C Work Phone: Start: 04-21-2022 Radiologic exam knee complete 4/more views Jessy Milan PA-C Work Phone: Start: 10-24-2021 CTA Chst, Abd, Pel W and/or WO Dr. Rochelle Hackett Work Phone: Start: 10-24-2021 Plain chest X-ray Dr. Eri Hackett Work Phone: Start: 10-03-[address] Rochelle Hackett Work Phone: Start: 10-03-[address] Rochelle Hackett Work Phone: Start: 03-26-2021 Radiologic exam knee complete 4/more views Cm Gutierrez APRN.CNP Work Phone: Start: 08-03-2017 End: 08-04-2017 *BMP Handy Russell GARLAND MACHINE OPERATOR Work Phone: Start: 08-03-2017 End: 08-03-2017 Ecg routine ecg w/least 12 lds w/i&r Handy Russell GARLAND MACHINE OPERATOR Work Phone: Start: 08-03-2017 End: 08-04-2017 Magnesium [Mass/volume] in Serum or Plasma Handy Russell GARLAND MACHINE OPERATOR Work Phone: Start: 06-09-2017 End: 06-11-2017 Bx/exc lymph node open superficial Carlos Sheth MD Work Phone: Start: 11-05-2016 End: 11-05-2016 [employer] Brian Cooley MD Start: 11-05-2016 End: 11-05-2016 [...] PA-C Work Phone: Start: 05-16-2015 End: 05-16-2015 [employer] Tanesha Britt PA-C Work Phone: Start: 05-16-2015 [...] PA-C Work Phone: Start: 09-28-2013 End: 09-28-2013 [employer] Brian Cooley MD Start: 09-28-2013 End: 07-25-2014 Ecg routine ecg w/least 12 lds w/i&r Brian Cooley MD Start: 09-28-2013 End: 07-25-2014 Echocardiography Brian Cooley MD Start: 09-28-2013 End: 09-28-2013 Follow Up Appt 2 months Ele Pierre Start: 08-08-2013 End: 08-09-2013 *BMP Brian Cooley MD Start: 08-08-2013 End: 08-09-2013 *CBC with Differential Brian Cooley MD Start: 08-08-2013 End: 07-25-2014 [employer] Brian Cooley MD Start: 08-08-2013 End: 08-08-2013 [...] PA-C Work Phone: Start: 11-17-2012 End: 11-17-2012 [employer] Brian Cooley MD Start: 11-17-2012 End: 11-17-2012 [...] Ele Pierre Start: 03-09-2012 End: 09-01-2012 *BMP Biran Cooley MD Start: 03-09-2012 End: 03-09-2012 Follow Up Appt 6 months Ele Pierre Colonoscopy colonoscopy Dr. Rochelle hughes Work Phone: Comment on above: Due 05/2019 SARS-CoV-2 & FLU Ant igen (Rapid) Dr. Rochelle Hackett Work Phone: SARS-CoV-2 & FLU Ant igen (Rapid) Dr. Rochelle Hackett Work Phone: Plan of Treatment Date Care Activity Detail Author Start: 06-30-2032 Tetanus vaccination TETANUS [facility] Start: 06-30-2032 Urine microalbumin profile [facility] Start: 09-24-2028 Urine microalbumin profile DTA P,TDAP,TD (2 - Td or Tdap) [facility] Start: 02-15-2028 Diabetes Screening Diabetes Screenin g [facility] Start: 11-02-2027 Diabetes Screening Diabetes Screenin g [facility] Start: 04-12-2027 Diabetes Screening Diabetes Screenin g [facility] Start: 09-01-2026 Diabetes Screening Diabetes Screenin g [facility] Start: 07-06-2026 Diabetes Screening Diabetes Screenin [facility] Start: 04-20-2026 DIABETES SCREEN DIABETES SCREEN [facility] Start: 08-25-2025 DIABETES SCREEN DIABETES SCREEN [facility] Start: 06-28-2025 DIABETES SCREEN DIABETES SCREEN [facility] Start: 05-11-2025 End: 05-11-2025 Patient encounter procedure 05/11/2025 1:00 PM EDT Office Visit Internal Medicine [place] [address] [facility] [place] [address] Older, Al, SERVICES DELIVERY DRIVER.FLIGHT FOLLOWER [address] [place] [address] Medicare wellness visit Internal Medicine [place] Comment on above: Medicare wellness vi sit Start: 02-10-2025 End: 05-12-2025 25-hydroxyvitamin D3 [Mass/volume] in Serum or Plasma VITAMIN D 25 HYDROXY Lab Routine Vitamin D deficiency Expected: 02/10/2025, Expires: 05/12/2025 [facility] Comment on above: Expected: 02/10/2025 , Expires: 05/12/2025 Start: 02-10-2025 End: 05-12-2025 Basic metabolic 2000 panel - Serum or Plasma BASIC METABOLIC PANEL Lab Routine SIADH (syndrome of inappropriate ADH production) ([facility]) Expected: 02/10/2025, Expires: 05/12/2025 [facility] Work Phone: Comment on above: Expected: 02/10/2025 , Expires: 05/12/2025 Start: 02-10-2025 End: 05-12-2025 CBC W Auto Differential panel - Blood COMPLETE BLOOD COUNT AND DIFFERENTIAL Lab Routine SIADH (syndrome of inappropriate ADH production) ([facility]) Expected: 02/10/2025, Expires: 05/12/2025 [facility] Comment on above: Expected: 02/10/2025 , Expires: 05/12/2025 Start: 02-10-2025 End: 05-12-2025 Comprehensive metabolic 2000 panel - Serum or Plasma COMPREHENSIVE METABOLIC PANEL Lab Routine SIADH (syndrome of inappropriate ADH production) ([facility]) Expected: 02/10/2025, Expires: 05/12/2025 [facility] Comment on above: Expected: 02/10/2025 , Expires: 05/12/2025 Start: 02-10-2025 End: 05-12-2025 Lipid 1996 panel - Serum or Plasma LIPID PANEL, FASTING Lab Routine Mixed hyperlipidemia Expected: 02/10/2025, Expires: 05/12/2025 [facility] Comment on above: Expected: 02/10/2025 , Expires: 05/12/2025 Start: 02-10-2025 End: 02-10-2025 Patient encounter procedure 02/10/2025 8:40 AM EDT Office Visit Internal Medicine [place] [address] [facility] [place], [place] [id number] Rochelle Hackett MD [address] [place], [place] [address] 3 month follow up Internal Medicine [place] Comment on above: 3 month follow up Start: 01-12-2025 End: 01-12-2025 Telemedicine consultation with patient 01/12/2025 1:00 PM EDT Telemedicine Sleep Medicine [facility] [address] [id number] Sleep Medicine [facility] Start: 11-21-2024 Covid-19 Vaccine ( season) Covid-19 Vaccine () [facility] Start: 11-08-2024 End: 11-08-2024 Patient encounter procedure 11/08/2024 9:20 AM EST Office Visit Internal Medicine [place] [address] [facility] [place] [address] Rochelle Hackett MD [address] [facility] [place], [place] [id number] Follow up Internal Medicine [place] Comment on above: Follow up Start: 11-02-2024 End: 02-01-2025 Basic metabolic 2000 panel - Serum or Plasma [facility] Comment on above: Expected: 11/02/2024 , Expires: 02/01/2025 Start: 10-30-2024 [facility] Start: 09-14-2024 Advance Directive Discussion Advance Directive Discussion [facility] Start: 07-13-2024 End: 07-13-2024 Patient encounter procedure 07/13/2024 9:05 PM EDT Office Visit Neurology [address] [place] [address] Sleep apnea, unspecified type [G47.30] Neurology Comment on above: Sleep apnea, unspeci fied type [G47.30] Start: 07-09-2024 RSV Vaccine (1 - 1-d ose 60+ series) RSV Vaccine (1 - 1-dose 60+ series) [facility] Comment on above: Postponed from 02/02 (Declined at this time) Start: 07-05-2024 End: 07-05-2024 Patient encounter procedure 07/05/2024 9:00 PM EDT Office Visit Neurology [address] [place] [address] Sleep apnea, unspecified type [G47.30] Neurology Comment on above: Sleep apnea, unspeci fied type [G47.30] Start: 06-28-2024 End: 06-28-2024 Patient encounter procedure 06/28/2024 8:45 AM EDT Office Visit Podiatry [address] [place] [address] Sol Harvey [address] [place] [address] 2 week follow up Podiatry Comment on above: 2 week follow up Start: 06-02-2024 End: 06-02-2024 Patient encounter procedure 06/02/2024 3:15 PM EDT Office Visit Podiatry [address] [place] [address] Sol Harvey [address] [place] [address] bilateral ingrown procedure Podiatry Comment on above: bilateral ingrown pr ocedure Start: 05-18-2024 End: 08-17-2024 25-hydroxyvitamin D3 [Mass/volume] in Serum or Plasma VITAMIN D 25 HYDROXY Lab Routine Vitamin D deficiency Expected: 05/18/2024, Expires: 08/17/2024 [facility] Comment on above: Expected: 05/18/2024 , Expires: 08/17/2024 Start: 05-18-2024 End: 08-17-2024 Ferritin [Mass/volume] in Serum or Plasma FERRITIN Lab Routine Iron deficiency Expected: 05/18/2024, Expires: 08/17/2024 [facility] Comment on above: Expected: 05/18/2024 , Expires: 08/17/2024 Start: 05-18-2024 End: 08-17-2024 Iron and Iron binding capacity panel - Serum or Plasma IRON AND TIBC Lab Routine Iron deficiency Expected: 05/18/2024, Expires: 08/17/2024 [facility] Comment on above: Expected: 05/18/2024 , Expires: 08/17/2024 Start: 05-18-2024 End: 08-17-2024 Thyrotropin [Units/volume] in Serum or Plasma THYROID STIMULATING HORMONE Lab Routine Other fatigue Expected: 05/18/2024, Expires: 08/17/2024 [facility] Comment on above: Expected: 05/18/2024 , Expires: 08/17/2024 Start: 05-18-2024 End: 05-18-2024 Patient encounter procedure [facility] Comment on above: Geriatric consult Start: 05-15-2024 Influenza vaccination Influenza Vacc ine (#1) [facility] Start: 05-14-2024 Screening for osteoporosis Bone Dens ity Screening [facility] Start: 05-03-2024 End: 08-02-2024 Magnesium [Mass/volume] in Serum or Plasma MAGNESIUM Lab Routine Medication management Expected: 05/03/2024, Expires: 08/02/2024 [facility] Work Phone: Comment on above: Expected: 05/03/2024 , Expires: 08/02/2024 Start: 04-22-2024 End: 04-22-2024 Patient encounter procedure 04/22/2024 1:40 PM EDT Office Visit Podiatry [address] [place] [address] Sol Harvey [address] [place] [address] ingrown toenail bilateral foot Podiatry Comment on above: ingrown toenail bila teral foot Start: 04-12-2024 End: 07-12-2024 Cobalamin (Vitamin B12) [Mass/volume] in Serum or Plasma [facility] Comment on above: Expected: 04/12/2024 , Expires: 07/12/2024 Start: 04-12-2024 End: 07-12-2024 Comprehensive metabolic 2000 panel - Serum or Plasma [facility] Comment on above: Expected: 04/12/2024 , Expires: 07/12/2024 Start: 04-12-2024 End: 07-12-2024 Ferritin [Mass/volume] in Serum or Plasma [facility] Comment on above: Expected: 04/12/2024 , Expires: 07/12/2024 Start: 04-12-2024 End: 07-12-2024 Iron and Iron binding capacity panel - Serum or Plasma [facility] Work Phone: Comment on above: Expected: 04/12/2024 , Expires: 07/12/2024 Start: 03-25-2024 DIABETES SCREEN DIABETES SCREEN [facility] Start: 01-23-2024 [facility] Start: 12-08-2023 [facility] Start: 12-08-2023 Plain chest X-ray Chest PA and Later al [facility] Start: 12-08-2023 XR Chest PA and Lateral [facility] Start: 12-08-2023 [facility] Start: 12-08-2023 Bacteria identified in Urine by Culture [facility] Start: 11-22-2023 [facility] Start: 11-22-2023 Patient discharge [facility] Start: 11-22-2023 Vitamin B12 measurement [facility] Start: 11-22-2023 Following clinical p athway protocol [facility] Start: 11-22-2023 Assessment of risk o f venous thromboembolism [facility] Start: 11-22-2023 Fall prevention [facility] Start: 11-22-2023 Incentive spirometry [facility] Start: 11-22-2023 Inhalation therapy procedure [facility] Start: 11-22-2023 Insertion of cathete r into peripheral vein [facility] Start: 11-22-2023 Introduction of urin merry catheter [facility] Start: 11-22-2023 Measuring intake and output [facility] Start: 11-22-2023 Oxygen therapy [facility] Start: 11-22-2023 Providing care accor ding to standard [facility] Start: 11-22-2023 Provision of activit y privileges [facility] Start: 11-22-2023 Referral to occupati onal therapist [facility] Start: 11-22-2023 Referral to service [facility] Start: 11-22-2023 [facility] Start: 11-21-2023 Verification routine [facility] Start: 11-21-2023 Admission procedure [facility] Start: 11-21-2023 Hospital admission, emergency, from emergency room, medical nature [facility] Start: 11-21-2023 [facility] Start: 11-21-2023 Respiratory Panel (PCR) Respiratory Panel (PCR) [facility] Start: 09-22-2023 Patient referral [facility] Work Phone: Start: 08-29-2023 [facility] Start: 07-23-2023 End: 10-22-2023 Basic metabolic 2000 panel - Serum or Plasma BASIC METABOLIC PNL Lab Routine Hyponatremia Expected: 07/23/2023 (Approximate), Expires: 10/22/2023 [facility] Work Phone: Comment on above: Expected: 07/23/2023 (Approximate), Expires: 10/22/2023 Start: 07-23-2023 Control nasal hemorr manoj anterior simple CONTROL OF NOSEBLEED [facility] Start: 07-23-2023 End: 07-23-2023 [facility] Start: 05-15-2023 Influenza vaccination INFLUENZA (#1) [facility] Start: 05-08-2023 End: 07-08-2023 Basic metabolic 2000 panel - Serum or Plasma BASIC METABOLIC PNL Lab Routine Hyponatremia Expected: 05/08/2023, Expires: 07/08/2023 [facility] Work Phone: Comment on above: Expected: 05/08/2023 , Expires: 07/08/2023 Start: 04-21-2023 End: 06-21-2023 Magnesium [Mass/volume] in Serum or Plasma MAGNESIUM BLD Lab Routine Medication management Expected: 04/21/2023, Expires: 06/21/2023 [facility] Work Phone: Comment on above: Expected: 04/21/2023 , Expires: 06/21/2023 Start: 04-16-2023 End: 06-16-2023 CBC W Auto Differential panel - Blood [facility] Work Phone: Comment on above: Expected: 04/16/2023 , Expires: 06/16/2023 Start: 04-16-2023 End: 06-16-2023 Comprehensive metabolic 2000 panel - Serum or Plasma [facility] Work Phone: Comment on above: Expected: 04/16/2023 , Expires: 06/16/2023 Start: 04-08-2023 [facility] Start: 11-13-2022 COVID-19 VACCINE (4 - Booster for Pfizer series) COVID-19 VACCINE (4 - Booster for Pfizer series) [facility] Comment on above: Postponed from 09/09 (Declined at this time) Start: 11-13-2022 SHINGRIX VACCINE (2 of 2) TUTTLE GRIX VACCINE (2 of 2) [facility] Comment on above: Postponed from 07/21 (Declined at this time) Start: 11-13-2022 SHINGRIX VACCINE (3 of 3) TUTTLE GRIX VACCINE (3 of 3) [facility] Comment on above: Postponed from 07/21 (Declined at this time) Start: 09-25-2022 End: 11-25-2022 Thyroglobulin Ab [Units/volume] in Serum or Plasma THYROGLOBULIN AB Lab Routine Abnormal thyroid blood test Other fatigue Expected: 09/25/2022 (Approximate), Expires: 11/25/2022 [facility] Work Phone: Comment on above: Expected: 09/25/2022 (Approximate), Expires: 11/25/2022 Start: 09-25-2022 End: 11-25-2022 THYROID PEROXIDASE ANTIBODY BLOOD THYROID PEROXIDASE ANTIBODY BLOOD Lab Routine Abnormal thyroid blood test Other fatigue Expected: 09/25/2022 (Approximate), Expires: 11/25/2022 [facility] Work Phone: Comment on above: Expected: 09/25/2022 (Approximate), Expires: 11/25/2022 Start: 09-25-2022 End: 11-25-2022 Thyrotropin [Units/volume] in Serum or Plasma TSH BLD Lab Routine Abnormal thyroid blood test Other fatigue Expected: 09/25/2022 (Approximate), Expires: 11/25/2022 [facility] Work Phone: Comment on above: Expected: 09/25/2022 (Approximate), Expires: 11/25/2022 Start: 09-25-2022 End: 11-25-2022 Thyroxine (T4) free [Mass/volume] in Serum or Plasma T4 FREE/FREE THYROX Lab Routine Abnormal thyroid blood test Other fatigue Expected: 09/25/2022 (Approximate), Expires: 11/25/2022 [facility] Work Phone: Comment on above: Expected: 09/25/2022 (Approximate), Expires: 11/25/2022 Start: 09-25-2022 End: 11-25-2022 Triiodothyronine (T3) [Mass/volume] in Serum or Plasma T3 BLD Lab Routine Abnormal thyroid blood test Other fatigue Expected: 09/25/2022 (Approximate), Expires: 11/25/2022 [facility] Work Phone: Comment on above: Expected: 09/25/2022 (Approximate), Expires: 11/25/2022 Start: 09-14-2022 ADVANCE DIRECTIVE DISCUSSION ADVANCE DIRECTIVE DISCUSSION [facility] Start: 09-13-2022 ADVANCE DIRECTIVE DISCUSSION ADVANCE DIRECTIVE DISCUSSION [facility] Comment on above: Postponed from 09/14 (Declined at this time) Start: 05-16-2022 End: 07-16-2022 Basic metabolic 2000 panel - Serum or Plasma BASIC METABOLIC PNL Lab Routine 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) Expected: 05/16/2022, Expires: 07/16/2022 [facility] Work Phone: Comment on above: Expected: 05/16/2022 , Expires: 07/16/2022 Start: 05-16-2022 End: 07-16-2022 CBC W Auto Differential panel - Blood CBC + DIFF Lab Routine 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) Expected: 05/16/2022, Expires: 07/16/2022 [facility] Work Phone: Comment on above: Expected: 05/16/2022 , Expires: 07/16/2022 Start: 05-15-2022 Influenza vaccination INFLUENZA (#1) [facility] Start: 05-01-2022 COVID-19 VACCINE (5 - Booster for Pfizer series) COVID-19 VACCINE (5 - Booster for Pfizer series) [facility] Start: 04-29-2022 End: 06-29-2022 CBC panel - Blood by Automated count CBC Lab Routine Medication management Expected: 04/29/2022, Expires: 06/29/2022 [facility] Work Phone: Comment on above: Expected: 04/29/2022 , Expires: 06/29/2022 Start: 04-29-2022 End: 06-29-2022 Magnesium [Mass/volume] in Serum or Plasma MAGNESIUM BLD Lab Routine Medication management Expected: 04/29/2022, Expires: 06/29/2022 [facility] Work Phone: Comment on above: Expected: 04/29/2022 , Expires: 06/29/2022 Start: 04-29-2022 End: 06-29-2022 SCHEDULE LAB TESTING SCHEDULE LAB TESTING Lab Routine Expected: 04/29/2022, Expires: 06/29/2022 [facility] Work Phone: Comment on above: Expected: 04/29/2022 , Expires: 06/29/2022 Start: 03-18-2022 Vitamin D, 1,25-dihy droxy measurement [facility] Work Phone: Start: 02-07-2022 End: 02-17-2022 SARS-CoV-2 (COVID-19) RNA [Presence] in Respiratory specimen by MIGUEL ANGEL with probe detection ASYMPTOMATIC ELECTIVE COVID-19 Microbiology Routine Exposure to COVID-19 virus Expected: 02/07/2022, Expires: 02/17/2022 [facility] Work Phone: Comment on above: Expected: 02/07/2022 , Expires: 02/17/2022 Start: 10-15-2017 End: 08-03-2017 *Hepatic Function Panel *Hepatic Function Panel [facility] Work Phone: Start: 10-15-2017 End: 08-03-2017 Lipid panel [AGGREGATE] *Lipid Profile CC PCP [employer] Work Phone: Start: 09-01-2017 End: 09-01-2017 Appointment [facility] Work Phone: Start: 08-27-2017 [facility] Start: 08-14-2017 End: 08-03-2017 48 hour holter monitor 48 hour holter monitor [facility] Work Phone: Start: 08-14-2017 End: 08-03-2017 Echocardiography Echocardiogram (complete) [employer] Work Phone: Start: 08-03-2017 End: 08-04-2017 *BMP *BMP [employer] Work Phone: Start: 08-03-2017 End: 08-04-2017 Magnesium *Magnesium [employer] Work Phone: Start: 05-28-2017 End: 05-28-2017 Us exam, breast(s) US Breast(s) [employer] Work Phone: Start: 04-24-2017 End: 04-24-2017 Oncology Referral Oncology Referral [employer] Work Phone: Start: 02-26-2017 End: 02-26-2017 Follow Up Appt 6 months Follow Up Appt 6 months [employer] Work Phone: Start: 02-26-2017 End: 02-26-2017 MMM MMM [facility] Work Phone: Start: 12-19-2016 PNEUMOCOCCAL: 65+ (3 - PPSV23 or PCV20) PNEUMOCOCCAL: 65+ (3 - PPSV23 or PCV20) [facility] Start: 11-05-2016 End: 11-05-2016 [employer] [facility] Work Phone: Start: 11-05-2016 End: 11-05-2016 Follow Up Appt 6 months Follow Up Appt 6 months [facility] Work Phone: Start: 08-26-2016 End: 08-26-2016 [employer] [facility] Work Phone: Start: 08-26-2016 End: 08-26-2016 Follow Up Appt 6 months Follow Up Appt 6 months [facility] Work Phone: Start: 02-22-2016 End: 02-22-2016 [employer] [facility] Work Phone: Start: 02-22-2016 End: 02-22-2016 Follow Up Appt 6 months Follow Up Appt 6 months [facility] Work Phone: Start: 01-28-2016 End: 02-08-2016 *Hepatic Function Panel *Hepatic Function Panel [facility] Work Phone: Start: 01-28-2016 End: 02-08-2016 Lipid panel [AGGREGATE] *Lipid Profile CC PCP [facility] Work Phone: Start: 10-16-2015 End: 10-16-2015 [employer] [facility] Work Phone: Start: 10-16-2015 End: 10-16-2015 Follow Up Appt 3 months Follow Up Appt 3 months [facility] Work Phone: Start: 08-30-2015 End: 08-30-2015 24 hour holter monitor 24 hour holter monitor [facility] Work Phone: Start: 08-30-2015 End: 08-30-2015 [employer] [facility] Work Phone: Start: 08-30-2015 End: 08-30-2015 Follow Up Appt 6 weeks Follow Up Appt 6 weeks [facility] Work Phone: Start: 06-28-2015 End: 09-11-2015 *BMP *BMP [facility] Work Phone: Start: 06-28-2015 End: 06-28-2015 Follow Up Appt Other Follow Up Appt Other [facility] Work Phone: Start: 06-28-2015 End: 09-11-2015 Magnesium *Magnesium [facility] Work Phone: Start: 06-01-2015 Screening for malign ant neoplasm of colon COLORECTAL CANCER SCREENING DISCUSSION [facility] Start: 05-16-2015 End: 05-16-2015 [employer] [facility] Work Phone: Start: 05-16-2015 End: 05-16-2015 Follow Up Appt 3 months Follow Up Appt 3 months [facility] Work Phone: Start: 02-12-2015 End: 02-12-2015 Follow Up Appt 2 months Follow Up Appt 2 months [facility] Work Phone: Start: 02-12-2015 End: 02-12-2015 Follow Up Appt Other Follow Up Appt Other [facility] Work Phone: Start: 02-12-2015 End: 02-12-2015 MMM MMM [facility] Work Phone: Start: 02-12-2015 End: 02-12-2015 Nuclear stress test -exercise Nuclear stress test -exercise [facility] Work Phone: Start: 02-12-2015 End: 02-12-2015 Xtr mobile cv telemetry w/i&report 30 days 30 Day Holter Monitor [facility] Work Phone: Start: 01-16-2015 End: 01-25-2015 *BMP *BMP [facility] Work Phone: Start: 01-16-2015 End: 01-16-2015 [employer] [facility] Work Phone: Start: 01-16-2015 End: 01-16-2015 Follow Up Appt 6 months Follow Up Appt 6 months [facility] Work Phone: Start: 01-16-2015 End: 01-25-2015 Lipid panel [AGGREGATE] *Lipid Profile CC PCP [facility] Work Phone: Start: 01-16-2015 End: 01-25-2015 Magnesium *Magnesium [facility] Work Phone: Start: 08-21-2014 Potassium [Moles/vol ume] in Serum or Plasma POTASSIUM [facility] Start: 07-20-2014 End: 07-25-2014 *BMP *BMP [facility] Work Phone: Start: 07-20-2014 End: 07-20-2014 [employer] [facility] Work Phone: Start: 07-20-2014 End: 07-20-2014 Ecg routine ecg w/least 12 lds w/i&r EKG (In office) [facility] Work Phone: Start: 07-20-2014 End: 07-20-2014 Follow Up Appt 6 months Follow Up Appt 6 months [facility] Work Phone: Start: 07-20-2014 End: 07-25-2014 Magnesium *Magnesium [facility] Work Phone: Start: 01-12-2014 End: 01-12-2014 *BMP *BMP [facility] Work Phone: Start: 01-12-2014 End: 01-12-2014 *Hepatic Function Panel *Hepatic Function Panel [facility] Work Phone: Start: 01-12-2014 End: 01-12-2014 [employer] [facility] Work Phone: Start: 01-12-2014 End: 01-12-2014 Ecg routine ecg w/least 12 lds w/i&r EKG (In office) [facility] Work Phone: Start: 01-12-2014 End: 01-12-2014 Follow Up Appt 6 months Follow Up Appt 6 months [facility] Work Phone: Start: 01-12-2014 End: 01-12-2014 Magnesium *Magnesium [facility] Work Phone: Start: 10-10-2013 End: 07-25-2014 *BMP *BMP [facility] Work Phone: Start: 10-10-2013 End: 07-25-2014 *CBC with Differential *CBC with Differential [facility] Work Phone: Start: 10-10-2013 End: 07-25-2014 Ecg routine ecg w/least 12 lds w/i&r EKG (In office) [facility] Work Phone: Start: 10-10-2013 End: 07-25-2014 Follow Up Appt Other Follow Up Appt Other [facility] Work Phone: Start: 10-10-2013 End: 07-25-2014 INR Coag RelTime (PPP) *PT/INR [facility] Work Phone: Start: 10-10-2013 End: 07-25-2014 Magnesium *Magnesium [facility] Work Phone: Start: 09-28-2013 End: 09-28-2013 [employer] [facility] Work Phone: Start: 09-28-2013 End: 07-25-2014 Ecg routine ecg w/least 12 lds w/i&r EKG (In office) [facility] Work Phone: Start: 09-28-2013 End: 09-28-2013 Echocardiography Echocardiogram (complete) [facility] Work Phone: Start: 09-28-2013 End: 09-28-2013 Follow Up Appt 2 months Follow Up Appt 2 months [facility] Work Phone: Start: 08-08-2013 End: 08-09-2013 *BMP *BMP [facility] Work Phone: Start: 08-08-2013 End: 08-09-2013 *CBC with Differential *CBC with Differential [facility] Work Phone: Start: 08-08-2013 End: 08-09-2013 BNP *Brain Natriuretic Peptide BNP [facility] Work Phone: Start: 08-08-2013 End: 07-25-2014 [employer] [facility] Work Phone: Start: 08-08-2013 End: 08-08-2013 Ecg routine ecg w/least 12 lds w/i&r EKG (In office) [facility] Work Phone: Start: 08-08-2013 End: 07-25-2014 Follow Up Appt 6 weeks Follow Up Appt 6 weeks [facility] Work Phone: Start: 08-08-2013 End: 08-09-2013 Magnesium *Magnesium [facility] Work Phone: Start: 07-21-2013 End: 07-22-2013 INR Coag RelTime (PPP) *PT/INR - Standing Order [facility] Work Phone: Start: 06-29-2013 End: 07-21-2013 24 hour holter monitor 24 hour holter monitor [facility] Work Phone: Start: 06-29-2013 End: 06-29-2013 Ecg routine ecg w/least 12 lds w/i&r EKG (In office) [facility] Work Phone: Start: 03-22-2013 End: 03-22-2013 Follow Up Appt 6 months Follow Up Appt 6 months [facility] Work Phone: Start: 03-22-2013 End: 03-22-2013 MMM MMM [facility] Work Phone: Start: 03-02-2013 End: 03-02-2013 Follow Up Appt Other Follow Up Appt Other [facility] Work Phone: Start: 03-02-2013 End: 03-02-2013 Nuclear stress test -exercise Nuclear stress test -exercise [facility] Work Phone: Start: 11-17-2012 End: 11-17-2012 [employer]ISH [employer] [facility] Work Phone: Start: 11-17-2012 End: 11-17-2012 Follow Up Appt 4 months Follow Up Appt 4 months [facility] Work Phone: Start: 10-12-2012 End: 10-06-2012 24 hour holter monitor 24 hour holter monitor [facility] Work Phone: Start: 09-20-2012 End: 09-15-2012 Left Heart Cath Left Heart Cath [facility] Work Phone: Start: 09-16-2012 End: 09-22-2012 *BMP *BMP [facility] Work Phone: Start: 09-16-2012 End: 09-22-2012 CBC W Auto Differential panel - Blood *CBC without Diff [facility] Work Phone: Start: 09-16-2012 End: 09-22-2012 Chest x-ray X-Ray, Chest, PA & Lateral [facility] Work Phone: Start: 09-16-2012 End: 09-16-2012 Ecg routine ecg w/least 12 lds w/i&r EKG (In office) [facility] Work Phone: Start: 09-16-2012 End: 09-22-2012 INR Coag RelTime (PPP) *PT/INR [facility] Work Phone: Start: 09-13-2012 End: 09-13-2012 24 hour holter monitor 24 hour holter monitor [facility] Work Phone: Start: 09-13-2012 End: 09-15-2012 BNP *Brain Natriuretic Peptide BNP [facility] Work Phone: Start: 09-13-2012 End: 09-13-2012 Echocardiography Echocardiogram (complete) [facility] Work Phone: Start: 09-01-2012 End: 09-01-2012 Follow Up Appt 3 months Follow Up Appt 3 months [facility] Work Phone: Start: 03-09-2012 End: 09-01-2012 *BMP *BMP [facility] Work Phone: Start: 03-09-2012 End: 03-09-2012 Follow Up Appt 6 months Follow Up Appt 6 months [facility] Work Phone: Start: 01-12-2007 Medicare Annual Well ness Visit Medicare Annual Wellness Visit [facility] Start: 1982 Screening for malign ant neoplasm of breast MAMMOGRAM SCREENING DISCUSSION [facility] Start: 1963 Screening for malign ant neoplasm of cervix CERVICAL CANCER SCREENING DISCUSSION [facility] Start: 1961 Third diphtheria, te tanus and acellular pertussis (DTaP) vaccination TDAP (ADULT) [facility] Start: 1942 Screening for osteoporosis DEXA SCAN DISCUSSION [facility] Bacteria identified in Urine by Culture URINE CULTURE Microbiology Routine Urinary frequency Ordered: 08/19/2022 [facility] Work Phone: Comment on above: Ordered: 08/19/2022 Bacteria identified in Urine by Culture BACTERIAL CULTURE, URINE Microbiology Routine Dysuria 11/02/2024 2:30 PM EST [facility] CBC W Auto Different ial panel - Blood [facility] Work Phone: CBC W Auto Different ial panel - [facility] Clostridioides diffi cile toxin genes [Presence] in Stool by MIGUEL ANGEL with probe detection C. DIFFICILE PCR Lab Routine Diarrhea, unspecified type 04/16/2023 9:00 AM EDT [facility] Work Phone: Complete blood count [facility] End: 12-01-2024 CT Head WO contrast CT BRAIN WO IVCON Radiology Routine TIA (transient ischemic attack) Aphasia Ocular migraine 1 Occurrences starting 11/02/2023 until 12/01/2024 [facility] Work Phone: Comment on above: 1 Occurrences starti ng 11/02/2023 until 12/01/2024 DXA Bone [Mass/Area] Bone density [facility] Work Phone: DXA Bone [Mass/Area] Bone density [facility] ENTERIC BACTERIAL PA JAQUELIN BY PCR ENTERIC BACTERIAL PANEL BY PCR Lab Routine Diarrhea, unspecified type 04/16/2023 8:00 AM EDT [facility] Work Phone: Folate [Mass/volume] in Serum or Plasma [facility] [place] and lambda lig ht chains [facility] MG Breast - right Screening [facility] Work Phone: MG Breast - right Screening [facility] MG Breast - right Screening [facility] MG Breast Diagnostic [facility] Ova and parasites identified in Unspecified specimen by Light microscopy OVA + PARA MICROSCOPIC Microbiology Routine Diarrhea, unspecified type 04/16/2023 8:00 AM EDT [facility] Work Phone: Patient Education [facility] Work Phone: Patient referral [facility] Work Phone: End: 05-18-2025 Polysomnogram POLYSOMNOGRAM (PSG) Procedures Routine Sleep apnea, unspecified type 1 Occurrences starting 05/18/2024 until 05/18/2025 [facility] Work Phone: Comment on above: 1 Occurrences starti ng 05/18/2024 until 05/18/2025 End: 01-15-2024 PVR ANK PRESS [facility] PVR ANK PRESS [facility] Vascular Lab Routine Onychomycosis Diminished pulses in lower extremity 1 Occurrences starting 01/14/2023 until 01/15/2024 [facility] Work Phone: Comment on above: 1 Occurrences starti ng 01/14/2023 until 01/15/2024 Radionuclide imaging of perfusion of myocardium under exercise stress [facility] Respiratory pathogen s DNA and RNA panel - Respiratory specimen by MIGUEL ANGEL with probe detection [facility] Thiamine measurement [facility] Thyroid stimulating hormone measurement [facility] UA DIP, URINE (POC) UA DIP, URIN E (POC) Lab Routine Dysuria Ordered: 11/02/2024 [facility] Work Phone: Comment on above: Ordered: 11/02/2024 Urinalysis complete panel - Urine URINALYSIS, WITH MICROSCOPIC Lab Routine Dysuria 11/02/2024 2:30 PM EST [facility] End: 11-02-2024 US Carotid arteries - bilateral US CAROTID ARTERIES [facility] Vascular Lab Routine TIA (transient ischemic attack) Aphasia Ocular migraine 1 Occurrences starting 11/02/2023 until 11/02/2024 [facility] Work Phone: Comment on above: 1 Occurrences starti ng 11/02/2023 until 11/02/2024 [facility] Work Phone: [facility] Vitamin B12 measurement [facility] Vitamin D, 1,25-dihy droxy [facility] [facility] Work Phone: End: 05-15-2024 XR ABDOMEN 1V SUPINE XR ABDOMEN 1V SUPINE Radiology Routine Diarrhea, unspecified type 1 Occurrences starting 04/16/2023 until 05/15/2024 [facility] Work Phone: Comment on above: 1 Occurrences starti ng 04/16/2023 until 05/15/2024 XR ABDOMEN 1V SUPINE XR ABDOMEN 1V SUPINE Radiology Routine Diarrhea, unspecified type 04/16/2023 9:01 AM EDT [facility] Work Phone: End: 05-17-2023 XR KNEE GENERAL 4V AP BOTH/PA BOTH/LAT/MERC RIGHT XR KNEE GENERAL 4V AP BOTH/PA BOTH/LAT/MERC RIGHT Radiology Routine Pain 1 Occurrences starting 04/17/2022 until 05/17/2023 [facility] Work Phone: Comment on above: 1 Occurrences starti ng 04/17/2022 until 05/17/2023 End: 08-27-2024 XR KNEE GENERAL 4V AP BOTH/PA BOTH/LAT/MERC RIGHT XR KNEE GENERAL 4V AP BOTH/PA BOTH/LAT/MERC RIGHT Radiology Routine Right knee pain, unspecified chronicity 1 Occurrences starting 07/29/2023 until 08/27/2024 [facility] Work Phone: Comment on above: 1 Occurrences starti ng 07/29/2023 until 08/27/2024 End: 12-02-2025 XR Lumbar spine 3 Views XR LUMBAR GENERAL 3V AP/LAT/L5-S1 Radiology Routine Acute midline back pain, unspecified back location Fall, subsequent encounter 1 Occurrences starting 11/02/2024 until 12/02/2025 [facility] Comment on above: 1 Occurrences starti ng 11/02/2024 until 12/02/2025 XR Lumbar spine 3 Views XR LUMBA R GENERAL 3V AP/LAT/L5-S1 Radiology Routine Acute midline back pain, unspecified back location Fall, subsequent encounter 11/02/2024 1:40 PM EST [facility] End: 12-02-2025 XR Thoracic spine AP and Lateral and Swimmers XR THORACIC GENERAL 3V AP/LAT/SWIMMERS Radiology Routine Acute midline back pain, unspecified back location Fall, subsequent encounter 1 Occurrences starting 11/02/2024 until 12/02/2025 [facility] Comment on above: 1 Occurrences starti ng 11/02/2024 until 12/02/2025 XR Thoracic spine AP and Lateral and Swimmers XR THORACIC GENERAL 3V AP/LAT/SWIMMERS Radiology Routine Acute midline back pain, unspecified back location Fall, subsequent encounter 11/02/2024 1:40 PM [facility] Immunizations Immunization Date Immunization Notes Care Provider Niko ruby 07-09-2023 influenza (HD-IIV4) vaccine, age 65+ yr, high dose, quadrivalent, PF (FLUZONE HIGH-DOSE) Al Nichole [employer] Work Phone: [facility] 07-09-2023 influenza virus vacc ine, unspecified formulation Rochelle Hackett MD Work Phone: [facility] 06-30-2022 tetanus and diphther ia toxoids, adsorbed, preservative free, for adult use (5 Lf of tetanus toxoid and 2 Lf of diphtheria toxoid) Sofía Baig PA-C Work Phone: [facility] 05-21-2022 influenza (aIIV4) vaccine, age 65+ yr, quadrivalent, PF (FLUAD QUADRIVALENT) Sofía Baig PA-C Work Phone: [facility] 05-21-2022 influenza, high dose seasonal, preservative-free Maggi cMdaniel PA-C Work Phone: [facility] 12-30-2021 COVID-19 original vaccine, age 12+ yr, monovalent (PFIZER-BIONTECH - AGUILAR TOP) Sofía Baig PA-C Work Phone: [facility] 12-30-2021 COVID-19 vaccine, ag e 12+ yr (PFIZER-BIONTECH - PURPLE TOP) 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 Rochelle friedman Work Phone: [facility] 10-16-2020 Covid (Pfizer) Dr. Rochelle friedman Work Phone: [facility] 05-26-2020 influenza, injectabl e, quadrivalent, preservative free Sofía Baig PA-C Work Phone: [facility] 05-26-2020 zoster vaccine recombinant Sofía Baig PA-C Work Phone: [facility] 05-23-[address] Rochelle Hackett Work Phone: [facility] 05-23-2020 influenza, seasonal, injectable, preservative free Sofía Bogner PA-C Work Phone: [facility] 03-05-2020 hepatitis A vaccine, adult dosage Sofía Bogner PA-C Work Phone: [facility] 03-05-2020 zoster vaccine recombinant Sofía Bogner PA-C Work Phone: [facility] 07-26-2019 influenza, high dose seasonal, preservative-free Rochelle Hackett MD Work Phone: [facility] Work Phone: 07-15-[address] Rochelle Hackett Work Phone: [facility] 11-16-2018 influenza, seasonal, injectable, preservative free Sofía Bogner PA-C Work Phone: [facility] 11-16-2018 pneumococcal polysaccharide vaccine, 23 valent Sofía Bogner PA-C Work Phone: [facility] 12-10-2017 influenza, seasonal, injectable, preservative free Sofía Bogner PA-C Work Phone: [facility] 12-10-2017 pneumococcal polysaccharide vaccine, 23 valent Sofía Bogner PA-C Work Phone: [facility] 12-20-2015 pneumococcal conjuga te vaccine, 13 valent Rochelle Hackett MD Work Phone: [facility] Work Phone: 07-11-[address] Rochelle Hackett Work Phone: [facility] 06-14-2013 influenza virus vacc ine, unspecified formulation Maya Sal MD Work Phone: [facility] 07-12-2012 influenza virus vacc ine, unspecified formulation Rochelle Hackett MD Work Phone: [facility] Work Phone: 01-08-2010 tetanus and diphther ia toxoids, adsorbed, preservative free, for adult use (2 Lf of tetanus toxoid and 2 Lf of diphtheria toxoid) Rochelle Hackett MD Work Phone: [facility] Work Phone: 01-08-2010 zoster vaccine, live Rochelle Hackett MD Work Phone: [facility] Work Phone: 06-12-2009 influenza virus vacc ine, unspecified formulation Rochelle Hackett MD Work Phone: [facility] Work Phone: 05-04-2007 pneumococcal polysaccharide vaccine, 23 valent Rochelle Hackett MD Work Phone: [facility] Work Phone: 05-04-[address] Marcos Hackett Work Phone: [facility] Work Phone: 05-04-2007 pneumococcal vaccine , unspecified formulation Dr. Rochelle Hackett Work Phone: [facility] Payers Date Payer Category Payer Private Health Insurance [employer] [id number] 2021-Present [phone] [address] [place] [address] Indemni [id number] 2017 Private Health Insurance [id number] 2017 Self-pay [id number] 2010 Private Health Insurance [id number] 2010 Private Health Insurance [id number] 2007 Medicare MEDICARE MEDICAR E A AND B [id number] 2007-Present [phone] [address] [address] [place] [address] Medicare [id number] 2007 Medicare [id number] 2007 Medicare [id number] 1942 Unknown [id number] 1942 Unknown [id number] [id number] Unknown [id number]. 2.462 Unknown [id number]. 2.462 Unknown [id number] 2.462 Unknown [id number]. 2.462 Unknown [id number]. 2.462 Unknown [id number]. 2.462 Unknown [id number]. 2.462 Unknown [id number] [id number]. 2.462 Unknown [id number] [id number]. 2.462 Unknown [id number]. 2.462 Unknown [id number]. 2.462 Unknown [id number]. 2.462 Unknown [id number] [id number]. 2.462 Unknown [id number]. 2.462 Unknown [id number]. 2.462 Unknown [id number]. 2.462 Social History Date Type Detail Facility Start: 11-25-2021 End: 08-29-2023 Tobacco smoking status MTIS Unknown if ever smoked [facility] Start: 01-21-2021 Occasional [facility] Start: 01-21-2021 None [facility] Start: 01-21-2021 Homeless [facility] Start: 01-21-2021 Non-smoker [facility] Start: 1940 Sex Assigned At Female [facility] Work Phone: Start: 04-21-2022 End: 10-30-2024 Tobacco smoking status NHIS Never smoked tobacco [facility] Start: 10-07-2021 End: 02-10-2025 Alcohol intake Current drinker of alcohol (finding) [facility] Start: 10-07-2021 End: 01-14-2023 Alcohol intake [facility] Start: 01-27-2020 End: 08-22-2022 History SDOH Alcohol Frequency 3 [facility] Start: 11-17-2019 End: 08-22-2022 History SDOH Alcohol Std Drinks 1 [facility] Start: 10-28-2012 History SDOH Alcohol Comment 1 glass per week [facility] Start: 11-17-2019 End: 08-22-2022 History SDOH Social Connections Phone 5 [facility] Start: 11-17-2019 End: 08-22-2022 History SDOH Transport Med 2 [facility] Start: 11-16-2019 Education 20 [facility] Start: 02-23-2021 End: 08-04-2022 Exposure to SARS-CoV-2 (event) Not sure [facility] Start: 07-13-2013 End: 04-21-2022 Tobacco use and exposure Smokeless tobacco non-user [facility] Start: 05-15-2022 End: 08-22-2022 History SDOH Social Connections Get Together 4 [facility] Start: 08-22-2022 History SDWI Alcohol Std Drinks 0 [facility] Start: 08-22-2022 End: 01-14-2023 Social connection and isolation panel [facility] Do you belong to any clubs or organizations such as synagogue groups, unions, fraternal or athletic groups, or school groups? Yes [facility] Are you now , , , , never or living with a partner? [facility] How often to you hav e a drink containing alcohol? Monthly or less [facility] How many standard dr inks containing alcohol do you have on a typical day? Patient does not drink [facility] How often do you hav e 6 or more drinks on 1 occasion? Never [facility] Do you feel stress - tense, restless, nervous, or anxious, or unable to sleep at night because your mind is troubled all the time - these days [OSQ] Only a little [facility] (I/We) worried wheada er (my/our) food would run out before (I/we) got money to buy more. Never true [facility] In the past 12 month s, was there a time when you were not able to pay the mortgage or rent on time? No [facility] Start: 09-29-2017 Gender identity Identifies as female gender (finding) [facility] Work Phone: Start: 02-01-2020 Sexual orientation Heterosexual (finding) [facility] Work Phone: How often to you hav e a drink containing alcohol? 2-4 times a month [facility] How many standard dr inks containing alcohol do you have on a typical day? 1 or 2 [facility] Do you feel stress - tense, restless, nervous, or anxious, or unable to sleep at night because your mind is troubled all the time - these days [OSQ] To some extent [facility] Start: 09-29-2024 Alcoholic beverage intake Current non-drinker of alcohol (finding) [facility] Start: 07-13-2013 Alcohol Comment used to drink 1 glass of wine daily but not an occassional sip out of her 's glass. [facility] Start: 1940 Sex assigned at Not on file [facility] Start: 12-23-2024 Sex Female (finding) [facility] Functional Status Date Assessment Result Facility 11-04-2024 Total score [AUDIT-C] 0 11/04/19 4:25 PM EST User, Rachellhart [facility] 11-04-2024 Within the last year , have you been humiliated or emotionally abused in other ways by your partner or ex-partner? No 11/04/2024 4:25 PM EST User, Mychart No [facility] 11-04-2024 Within the last year , have you been afraid of your partner or ex-partner? No 11/04/2024 4:25 PM EST User, Mychart No [facility] 11-04-2024 Within the last year , have you been raped or forced to have any kind of sexual activity by your partner or ex-partner? No 11/04/2024 4:25 PM EST User, Rachellhart No [facility] 11-04-2024 Within the last year , have you been kicked, hit, slapped, or otherwise physically hurt by your partner or ex-partner? No 11/04/2024 4:25 PM EST User, Rachellhart No [facility] 11-04-2024 How often to you hav e a drink containing alcohol? Never 11/04/2024 4:25 PM EST User, Mychart Never [facility] 11-04-2024 Functional status Patient does n ot drink 11/04/2024 4:25 PM EST User, Rachellhart Patient does not drink [facility] 11-04-2024 How often do you hav e 6 or more drinks on 1 occasion? Never 11/04/2024 4:25 PM EST User, Mychart Never [facility] 11-22-2023 Functional status Ambulates;Bath room Privilege [facility] Work Phone: 01-22-2015 Are you deaf, or do you have serious difficulty hearing No 01/22/2015 4:45 PM EDT Nadeen Cox Cma No [facility] 01-22-2015 Are you blind, or do you have serious difficulty seeing, even when wearing glasses No 01/22/2015 4:45 PM EDT Nadeen Cox Cma No [facility] 01-22-2015 Do you have serious difficulty walking or climbing stairs No 01/22/2015 4:45 PM EDT Nadeen Cox Cma No [facility] 01-22-2015 Do you have difficul ty dressing or bathing No 01/22/2015 4:45 PM EDT Nadeen Cox Cma No [facility] 01-22-2015 Because of a physica l, mental, or emotional condition, do you have difficulty doing errands alone such as visiting a physician's office or shopping No 01/22/2015 4:45 PM EDT Nadeen Cox Cma No [facility] Mental Status Date Assessment Result Facility 09-20-2024 Cognitive function Voice/Name [facility] Work Phone: 12-08-2023 Cognitive function Level Of Cons ciousness Awake;Alert;Appropriate [facility] Work Phone: 11-22-2023 Cognitive function Voice/Name [facility] Work Phone: 10-01-2023 Cognitive function Voice/Name [facility] Work Phone: 04-09-2023 Cognitive function Voice/Name [facility] Work Phone: 04-08-2023 Cognitive function Level Of Cons ciousness Awake;Alert;Appropriate [facility] Work Phone: 10-08-2022 Cognitive function Awake;Alert;A ppropriate;Fol lows Commands [facility] Work Phone: 08-17-2022 Cognitive function Voice/Name [facility] Work Phone: 10-24-2021 Cognitive function Voice/Name [facility] Work Phone: 09-26-2021 Cognitive function Voice/Name [facility] Work Phone: 07-07-2019 Cognitive function Mood Descript ion Appropriate;Calm;Relaxed [facility] Work Phone: 01-22-2015 Because of a physica l, mental, or emotional condition, do you have serious difficulty concentrating, remembering, or making decisions No 01/22/2015 4:45 PM EDT Nadeen Cox Cma No [facility] Clinical Notes 12-20-2015 to 02-22-2025 Telephone Encounter - Josie Blankenship RN - 02/22/2025 1:35 PM EDTTelephone Encounter - Josie Blankenship RN - 02/22/2025 1:35 PM EDTPatient Rochelle Tomas MD - 02/10/2025 8:54 AM EDT Note Date & Type Note Facility 02-22-2025 Telephone encounter Note Pt reports she has enough pills to get her through the beginning of next week. The patient has been identified by name and date of : Yes Caregiver verified no other encounters exist for this prescription request: Yes Caregiver confirmed with patient/requestor that no other refills are due, in the near future, with this provider at this time: Yes The last office visit in the department: 02/10/2025 Does the patient have a future office visit with this provider/department: Yes 05/11/2025 Requested Prescriptions Pending Prescriptions Disp Refills esomeprazole (NEXIUM) 40 mg capsule 90 capsule 3 Sig: Take 1 capsule by mouth daily before breakfast. 1/2 hr before meal. Josie Blankenship RN February 22, 2025 1:36 PM [facility] 02-22-2025 Miscellaneous Notes Pt reports she has enough pills to get her through the beginning of next week. The patient has been identified by name and date of : Yes Caregiver verified no other encounters exist for this prescription request: Yes Caregiver confirmed with patient/requestor that no other refills are due, in the near future, with this provider at this time: Yes The last office visit in the department: 02/10/2025 Does the patient have a future office visit with this provider/department: Yes 05/11/2025 Requested Prescriptions Pending Prescriptions Disp Refills esomeprazole (NEXIUM) 40 mg capsule 90 capsule 3 Sig: Take 1 capsule by mouth daily before breakfast. 1/2 hr before meal. Josie Blankenship RN February 22, 2025 1:36 PM documented in this encounter [facility] 02-10-2025 Instructions Rochelle Hackett MD - 02/10/2025 9:21 AM EDT We discussed your overall health and recent improvements: - You reported feeling much better overall, with increased energy and reduced back pain. You attribute these improvements to physical therapy, increased activity, and seasonal changes. - You have been engaging in chair yoga at the [facility] and plan to resume independent exercises at [facility] starting next week. We discussed your back pain and recent MRI: - You had an MRI of your thoracic spine ordered by Dr. Garcia at the pain clinic. You will follow up with him on Thursday to review the results. - You noted that your back pain has improved significantly. We discussed your blood pressure: - Your blood pressure was elevated today, which may be related to your morning dose of Midodrine. This medication is helping manage your orthostatic blood pressure issues and preventing dizziness and falls. - You are also taking Metoprolol to help control your blood pressure and manage atrial fibrillation. We discussed your atrial fibrillation: - You are currently taking Tikosyn, Metoprolol, and Eliquis for atrial fibrillation. Continue these medications as prescribed. - You have a cardiology appointment scheduled in February to review your heart health and address any concerns, including shortness of breath with exertion. We discussed your insomnia: - You are working through an online cognitive behavioral therapy (CBT) program for insomnia, as recommended by your sleep physician. This includes keeping a sleep diary, maintaining consistent sleep and wake times, and compressing your sleep to improve efficiency. - You reported some improvement in your sleep, with fewer difficulties returning to sleep after waking during the night. We discussed your irritable bowel symptoms and hemorrhoids: - Your bowel symptoms are well-managed with adequate water intake and occasional use of a fiber supplement. Continue these measures as needed. - For hemorrhoids, you are using Preparation H, which is helping with itching. If symptoms worsen, you may consider Anusol suppositories or consult a surgeon for further options. We discussed your seasonal affective disorder: - You noted that your mood and energy levels improve significantly during the spring and summer months. Continue engaging in activities that keep you active and socially connected. We discussed your lab work and supplements: - I will order the following labs: CBC, cholesterol panel, vitamin D, and kidney and liver function tests. These will help monitor your overall health. - Continue taking calcium, magnesium, vitamin D, and iron supplements as directed. You may also resume taking a cranberry supplement if desired. We discussed your bone health: - You are receiving Zometa (zoledronic acid) infusions every six months for bone density. Your next infusion is scheduled for February. Continue taking calcium as recommended to support your bone health. We discussed your sodium levels and SIADH: - You are managing your , sodium levels with sodium tablets as needed. You have not experienced any recent episodes of nausea or vomiting, and your sodium levels have remained stable. Continue monitoring your symptoms and staying hydrated. Follow-Up: - Please follow up with Dr. Garcia on Thursday to review your MRI results. - Continue with your cardiology appointment in February to address any concerns, including shortness of breath. - I will review your lab results once they are completed and discuss any necessary changes to your care plan. Let me know if you experience any new or worsening symptoms, such as dizziness, chest pain, or significant changes in your health. documented in this encounter [facility] 02-10-2025 Note HNO ID: [id number] Author: ROCHELLE HACKETT MD Service: ? Author Type: Physician Type: Progress Notes Filed: 02/10/2025 09:36 Note Text: Reason for Visit Follow up TERENCE Wayne is a 85-year-old female, with a history of adrenal insufficiency, SIADH, atrial fibrillation, and seasonal affective disorder, presenting for follow-up. Rosana reports significant improvement in her overall condition since her last visit in October. She has not experienced any falls since then and attributes her stability to careful attention to her surroundings and occasional use of a cane. She has been taking midodrine for orthostatic hypotension since August, which has effectively reduced episodes of lightheadedness upon standing. However, she notes that her blood pressure has been elevated, which she attributes to the midodrine. She is also on metoprolol for blood pressure control and atrial fibrillation, and takes Tikosyn and Eliquis for atrial fibrillation management. She reports a decrease in severe back pain, which she attributes to physical therapy at [facility] and increased physical activity. She has been more active, engaging in chair yoga at the [facility] and walking on her property. She also notes an improvement in her energy levels and attributes this to both physical activity and the seasonal change, as she experiences worsening symptoms of seasonal affective disorder during the darker months. Rosana has a history of insomnia and has had two appointments with a sleep physician at [facility]. A recent sleep study revealed frequent arousals from sleep, and she has been following a prescribed sleep regimen, including maintaining a consistent sleep schedule and keeping a sleep diary. She reports some improvement in her sleep quality, noting that she is able to fall back asleep more quickly after waking during the night. She has a history of SIADH and sees Dr. Sahu twice a year for monitoring. She has not had any emergency room visits for nausea or vomiting since October and has been taking sodium tablets as needed. She also reports a history of motion sensitivity, which has worsened with age, and notes that she avoids activities that trigger nausea. Rosana has a history of irritable bowel syndrome and reports that her symptoms are well-controlled as long as she drinks enough water. She uses a fiber compound as needed and reports occasional hemorrhoid discomfort, which she manages with Preparation H. She denies any significant issues with reflux, which is controlled with medication taken in the mornings. She also takes calcium, magnesium, vitamin D, and iron supplements. She is scheduled for another infusion of Zometa in February for bone density management and has been consistent with her calcium intake. She has an upcoming appointment with a health information technician in February and plans to discuss her recent episodes of dyspnea with them. Social History Tobacco Use Smoking status: Never Smokeless tobacco: Never Vaping Use Vaping status: Never Used Substance Use Topics Alcohol use: Yes Alcohol/week: 1.0 standard drink of alcohol Types: 1 Glasses of Wine (5oz) per week Comment: 1 glass per week Drug use: No Past medical history, appointments, medications, allergies reviewed. Pertinent Lab/Diagnostic Studies are reviewed and discussed today Current Outpatient Medications: lidocaine (LIDODERM) 5 % famotidine (PEPCID) 20 mg tablet fludrocortisone (FLORINEF) 0.1 mg tablet midodrine (PROAMATINE) 2.5 mg tablet zoledronic acid (ZOMETA INTRAVENOUS) esomeprazole (NEXIUM) 40 mg capsule BENEFIBER, GUAR GUM, ORAL meclizine (ANTIVERT) 25 mg tab Magnesium Glycinate 120mg 3 at night Stress, blood sugar, thyroid/hormones/adrenals/sleep/ energy/toxins/muscles/constipati on/asthma metoprolol succinate ER (TOPROL XL) 25 mg 24 hr tablet APIXABAN (ELIQUIS ORAL) dofetilide (TIKOSYN) 250 mcg capsule acetaminophen (TYLENOL) 325 mg tablet calcium carbonate 600 mg-cholecalciferol 200 units 600 mg-5 mcg (200 unit) tab ergocalciferol(VITAMIN D 400 UNIT CAP) tiZANidine (ZANAFLEX) 2 mg tablet Health Maintenance Bone Density Screening Advance Directive Discussion Covid-19 Vaccine( season)@ Review Of Systems Constitutional: (+) fatigue Head: (-) headache Ears/Nose/Mouth/Throat: (+) rhinorrhea, (+) nasal congestion Cardiovascular: (-) chest pain Respiratory: (+) exertional dyspnea Gastrointestinal: (+) pruritus ani, (-) nausea, (-) vomiting, (-) heartburn Genitourinary: (+) nocturia Musculoskeletal: (+) back pain, (-) falls Neurological: (+) insomnia, (-) lightheadedness Physical Exam BP 160/71 Pulse 62 Resp 16 Wt 55.2 kg (121 lb 12.8 oz) BMI 19.08 kg/m? GENERAL: NAD, alert and oriented. SKIN: Unremarkable, no rash or skin lesions. HEAD: Normocephalic. EYES: PERRLA, EOMI, conjunctiva clear. NECK: Supple, no lymphadenopathy, normal thyroid, no carotid (more content not included)... [facility] 02-10-2025 History of Presen t illness Narrative Reason for Visit Follow up TERENCE Wayne is a 85-year-old female, with a history of adrenal insufficiency, SIADH, atrial fibrillation, and seasonal affective disorder, presenting for follow-up. Rosana reports significant improvement in her overall condition since her last visit in October. She has not experienced any falls since then and attributes her stability to careful attention to her surroundings and occasional use of a cane. She has been taking midodrine for orthostatic hypotension since August, which has effectively reduced episodes of lightheadedness upon standing. However, she notes that her blood pressure has been elevated, which she attributes to the midodrine. She is also on metoprolol for blood pressure control and atrial fibrillation, and takes Tikosyn and Eliquis for atrial fibrillation management. She reports a decrease in severe back pain, which she attributes to physical therapy at [facility] and increased physical activity. She has been more active, engaging in chair yoga at the [facility] and walking on her property. She also notes an improvement in her energy levels and attributes this to both physical activity and the seasonal change, as she experiences worsening symptoms of seasonal affective disorder during the darker months. Rosana has a history of insomnia and has had two appointments with a sleep physician at [facility]. A recent sleep study revealed frequent arousals from sleep, and she has been following a prescribed sleep regimen, including maintaining a consistent sleep schedule and keeping a sleep diary. She reports some improvement in her sleep quality, noting that she is able to fall back asleep more quickly after waking during the night. She has a history of SIADH and sees Dr. Sahu twice a year for monitoring. She has not had any emergency room visits for nausea or vomiting since October and has been taking sodium tablets as needed. She also reports a history of motion sensitivity, which has worsened with age, and notes that she avoids activities that trigger nausea. Rosana has a history of irritable bowel syndrome and reports that her symptoms are well-controlled as long as she drinks enough water. She uses a fiber compound as needed and reports occasional hemorrhoid discomfort, which she manages with Preparation H. She denies any significant issues with reflux, which is controlled with medication taken in the mornings. She also takes calcium, magnesium, vitamin D, and iron supplements. She is scheduled for another infusion of Zometa in February for bone density management and has been consistent with her calcium intake. She has an upcoming appointment with a health information technician in February and plans to discuss her recent episodes of dyspnea with them. Social History Tobacco Use Smoking status: Never Smokeless tobacco: Never Vaping Use Vaping status: Never Used Substance Use Topics Alcohol use: Yes Alcohol/week: 1.0 standard drink of alcohol Types: 1 Glasses of Wine (5oz) per week Comment: 1 glass per week Drug use: No Past medical history, appointments, medications, allergies reviewed. Pertinent Lab/Diagnostic Studies are reviewed and discussed today Current Outpatient Medications: lidocaine (LIDODERM) 5 % famotidine (PEPCID) 20 mg tablet fludrocortisone (FLORINEF) 0.1 mg tablet midodrine (PROAMATINE) 2.5 mg tablet zoledronic acid (ZOMETA INTRAVENOUS) esomeprazole (NEXIUM) 40 mg capsule BENEFIBER, GUAR GUM, ORAL meclizine (ANTIVERT) 25 mg tab Magnesium Glycinate 120mg 3 at night Stress, blood sugar, thyroid/hormones/adrenals/sleep/ energy/toxins/muscles/constipati on/asthma metoprolol succinate ER (TOPROL XL) 25 mg 24 hr tablet APIXABAN (ELIQUIS ORAL) dofetilide (TIKOSYN) 250 mcg capsule acetaminophen (TYLENOL) 325 mg tablet calcium carbonate 600 mg-cholecalciferol 200 units 600 mg-5 mcg (200 unit) tab ergocalciferol(VITAMIN D 400 UNIT CAP) tiZANidine (ZANAFLEX) 2 mg tablet Health Maintenance Bone Density Screening Advance Directive Discussion Covid-19 Vaccine()@ Review Of Systems Constitutional: (+) fatigue Head: (-) headache Ears/Nose/Mouth/Throat: (+) rhinorrhea, (+) nasal congestion Cardiovascular: (-) chest pain Respiratory: (+) exertional dyspnea Gastrointestinal: (+) pruritus ani, (-) nausea, (-) vomiting, (-) heartburn Genitourinary: (+) nocturia Musculoskeletal: (+) back pain, (-) falls Neurological: (+) insomnia, (-) lightheadedness Physical Exam BP 160/71 Pulse 62 Resp 16 Wt 55.2 kg (121 lb 12.8 oz) BMI 19.08 kg/m GENERAL: NAD, alert and oriented. SKIN: Unremarkable, no rash or skin lesions. HEAD: Normocephalic. EYES: PERRLA, EOMI, conjunctiva clear. NECK: Supple, no lymphadenopathy, normal thyroid, no carotid bruits. LUNGS: Clear to auscultation bilaterally, no wheezes/rhonchi/rales. HEART: Regular rate and rhythm, no murmurs. No ectopy. EXTREMITIES: Normal, no deformities, no skin discoloration, no edema. NEURO: Awake, alert and oriented x3, cranial nerves II-XII grossly intact, normal gait, no involuntary motions. Labs: (October) - Sodium: 130 mmol/L - Additional lab test: 4 Tests: - Second Sleep Study: No evidence of sleep apnea; frequent arousals from sleep consistent with insomnia Assessment and Plan 1. Osteoporosis, unspecified osteoporosis type, unspecified pathological fracture presence (M81.0) Currently managed with Zometa infusions every 6 months. Patient is compliant with calcium supplementation. - Continue Zometa infusions as scheduled. - Maintain calcium supplementation. 2. Insomnia, unspecified type (G47.00) Under management by a sleep physician at [facility]. Recent sleep study showed frequent arousals; no evidence of sleep apnea. Patient is following an online course from the [place], keeping a sleep diary, and working on sleep compression techniques. - Continue current sleep management plan as directed by the sleep physician. - Maintain consistent sleep and wake times. 3. Dizziness (R42) Improved since initiation of midodrine 6 months ago. No recent falls reported. Dizziness previously associated with orthostatic hypotension. - Continue midodrine therapy. - Monitor for any recurrence of dizziness or falls. 4. SIADH (syndrome of inappropriate ADH production) ([facility]) (E22.2) Last sodium level was 130 mEq/L. Managed with sodium tablets as needed. No recent emergency room visits for hyponatremia-related nausea and vomiting. - Ordered BMP to monitor sodium levels. - Continue sodium tablets as needed. - Follow-up with Dr. Sahu as scheduled. 5. Protein-calorie malnutrition, unspecified severity ([facility]) (E46) Improved appetite and increased food intake reported. No significant issues with reflux; managed with morning medication and occasional Pepcid. - Monitor nutritional status. - Continue current GERD management. 6. Anxiety and depression (F41.9) Symptoms appear to be seasonal, with improvement noted in spring and summer months. Increased activity and social interactions have contributed to positive changes. - Encourage continued physical activity and social engagement. - Monitor for any recurrence of symptoms in the fall and winter months. 7. Gastroesophageal reflux disease, unspecified whether esophagitis present (K21.9) Well-controlled with current medication regimen. - Continue current medication regimen. - Use Pepcid as needed for breakthrough symptoms. 8. Vitamin D deficiency (E55.9) Patient is taking vitamin D supplements. - Ordered vitamin D level. - Continue vitamin D supplementation. 9. Frail elderly (R54) Improved physical activity and energy levels. Engaged in chair yoga and plans to resume physical therapy. - Encourage continued physical activity. - Consider referral for additional physical therapy if needed. 10. Mixed hyperlipidemia (E78.2) Due for lipid panel. - Ordered lipid panel. 11. Essential (primary) hypertension (I10) Currently managed with metoprolol. Recent BP readings have been elevated, likely influenced by midodrine therapy. - Recheck BP after patient has been seated for 10-15 minutes. - Continue metoprolol. - Monitor BP closely, especially in the mornings after midodrine administration. Voice recognition software was used to compose this office note. Please excuse any unintended typographical errors. Recording using [employer] software for draft documentation of the visit was discussed with the patient/authorized outside energy sales representatives; all questions welcomed and answered. Patient/authorized outside energy sales representatives agreed to proceed Rochelle Hackett MD documented in this encounter [facility] 12-27-2024 Note HNO ID: [id number] Author: ANAYELI PETTIT RN Service: ? Author Type: Registered Nurse Type: Progress Notes Filed: 12/27/2024 14:12 Note Text: [facility] Telephonic Outreach Provider Action/FYI Patient identified by Name and Date of . Discussed care with patient. Patient reports she is doing better. Physical therapy has been beneficial. No new concerns, states she just needs to keep up with her exercises. Program Details Chronic Disease Management Status: Enrolled Effective Dates: 10/17/2024 - present Responsible Staff: Anayeli Pettit RN Support and Services: High Utilizer Program Goals Targets Target Due Completed Completed By Outcome Annual Medicare Wellness visit addressed 01/16/2025 11/16/2024 Anayeli Pettit RN Patient Declined Patient-stated goal addressed (add comment) 01/16/2025 11/16/2024 Anayeli Pettit RN Complete Improvement of back pain and regain my strength after my fall Biannual PCP visit addressed 01/16/2025 11/01/2024 Anayeli Pettit RN Complete/Scheduled General education provided (managing stress, where to go/how to contact, etc.) 11/14/2024 10/17/2024 Anayeli Pettit RN Complete Has a therapist outside [facility] Intake assessments completed: ADLs, Fall Risk, SDOH 11/14/2024 10/17/2024 Anayeli Pettit RN Complete Assessments CDM Assessment Medications: Do you need any medication refills at this time, including any of the medication you might take only when needed?: No Symptoms: Are you experiencing any new or worsening symptoms that you need to talk about today?: No ADLs No documentation this encounter Fall Risk No documentation this encounter SDOH No documentation this encounter Interventions The following were addressed during this visit: - Bi-Weekly Outreach (Recurring) Disposition Based on tafe lecturer, the following disposition is advised: No action needed Anayeli Pettit RN December 27, 2024 2:09 PM [facility] 12-27-2024 History of Presen t illness Narrative Images from the original note were not included. [facility] Care Path Telephonic Outreach Provider Action/FYI Patient identified by Name and Date of . Discussed care with patient. Patient reports she is doing better. Physical therapy has been beneficial. No new concerns, states she just needs to keep up with her exercises. Program Details Chronic Disease Management Status: Enrolled Effective Dates: 10/17/2024 - present Responsible Staff: Anayeli Pettit RN Support and Services: High Utilizer Program Goals Targets Target Due Completed Completed By Outcome Annual Medicare Wellness visit addressed 01/16/2025 11/16/2024 Anayeli Pettit RN Patient Declined Patient-stated goal addressed (add comment) 01/16/2025 11/16/2024 Anayeli Pettit RN Complete Improvement of back pain and regain my strength after my fall Biannual PCP visit addressed 01/16/2025 11/01/2024 Anayeli Pettit RN Complete/Scheduled General education provided (managing stress, where to go/how to contact, etc.) 11/14/2024 10/17/2024 Anayeli Pettit RN Complete Has a therapist outside [facility] Intake assessments completed: ADLs, Fall Risk, SDOH 11/14/2024 10/17/2024 Anayeli Pettit RN Complete Assessments CDM Assessment Medications: Do you need any medication refills at this time, including any of the medication you might take only when needed?: No Symptoms: Are you experiencing any new or worsening symptoms that you need to talk about today?: No ADLs No documentation this encounter Fall Risk No documentation this encounter SDOH No documentation this encounter Interventions The following were addressed during this visit: - Bi-Weekly Outreach (Recurring) Disposition Based on tafe lecturer, the following disposition is advised: No action needed Anayeli Pettit RN December 27, 2024 2:09 PM documented in this encounter [facility] 12-27-2024 Note Patient Outreach ([facility]) ROSANA MAKI ([id number]) 1940 F NFR Date Time Provider Department 12/27/24 ANAYELI PETTITG During your visit today, we recorded the following information about you: Anayeli Pettit RN 12/27/2024 2:12 PM Signed [facility] Telephonic Outreach Provider Action/FYI Patient identified by Name and Date of . Discussed care with patient. Patient reports she is doing better. Physical therapy has been beneficial. No new concerns, states she just needs to keep up with her exercises. Program Details Chronic Disease Management Status: Enrolled Effective Dates: 10/17/2024 - present Responsible Staff: Anayeli Pettit RN Support and Services: High Utilizer Program Goals Targets Target Due Completed Completed By Outcome Annual Medicare Wellness visit addressed 01/16/2025 11/16/2024 Anayeli Pettit RN Patient Declined Patient-stated goal addressed (add comment) 01/16/2025 11/16/2024 Anayeli Pettit RN Complete Improvement of back pain and regain my strength after my fall Biannual PCP visit addressed 01/16/2025 11/01/2024 Anayeli Pettit RN Complete/Scheduled General education provided (managing stress, where to go/how to contact, etc.) 11/14/2024 10/17/2024 Anayeli Pettit RN Complete Has a therapist outside [facility] Intake assessments completed: ADLs, Fall Risk, SDOH 11/14/2024 10/17/2024 Anayeli Pettit RN Complete Assessments CDM Assessment Medications: Do you need any medication refills at this time, including any of the medication you might take only when needed?: No Symptoms: Are you experiencing any new or worsening symptoms that you need to talk about today?: No ADLs No documentation this encounter Fall Risk No documentation this encounter SDOH No documentation this encounter Interventions The following were addressed during this visit: - Bi-Weekly Outreach (Recurring) Disposition Based on tafe lecturer, the following disposition is advised: No action needed Anayeli Pettit RN December 27, 2024 2:09 PM Allergies As of Date: 12/27/2024 Noted Allergy Reaction ADHESIVE TAPE (ROSINS) 11/11/2013 2 - Rash CANTALOUPE 08/12/2005 ERYTHROMYCIN 08/12/2005 8 - GI Upset GEMTESA (VIBEGRON) 07/09/2023 6 - Diarrhea GRASS POLLEN 08/13/2005 MOLD 08/13/2005 PENICILLINS 08/12/2005 2 - Rash 7 - Swelling POLLEN 08/13/2005 PREVACID (LANSOPRAZOLE) 05/02/2014 6 - Diarrhea Comments: All PPIs tried have given her diarrhea. SULFA (SULFONAMIDE ANTIBIOTICS) 08/12/2005 Comments: Pt uncertain if Sulfa allergy is accurate or not. Date Reviewed: 11/08/2024 Reviewed by: Teri Araiza LPN - Fully Assessed Prescriptions as of 12/27/2024 - fludrocortisone (FLORINEF) 0.1 mg tablet Taking 3 times a week - midodrine (PROAMATINE) 2.5 mg tablet Take 2.5 mg by mouth two times a day. - lidocaine (LIDODERM) 5 % Place patch to back for 12 hours. Remove old patch and wait 12 hours prior to placing new patch. - tiZANidine (ZANAFLEX) 2 mg tablet Take 1 tablet by mouth every 6 hours as needed. - zoledronic acid (ZOMETA INTRAVENOUS) Inject intravenously. Every 6 months - esomeprazole (NEXIUM) 40 mg capsule Take 1 capsule by mouth daily before breakfast. 1/2 hr before meal. - famotidine (PEPCID) 20 mg tablet take 1 tablet by mouth at bedtime if needed - BENEFIBER, GUAR GUM, ORAL Take 2 teaspoonsful by mouth two times a day as needed. - meclizine (ANTIVERT) 25 mg tab Take 1 tablet by mouth every 6 hours as needed (dizziness). - Magnesium Glycinate 120mg 3 at night Stress, blood sugar, thyroid/hormones/adrenals/sleep/ energy/toxins/muscles/constipati on/asthma Work up to 3 capsules with meals at night - can cause loose stools - metoprolol succinate ER (TOPROL XL) 25 mg 24 hr tablet Take half tablet in the morning and 1 tablet in the evening. - APIXABAN (ELIQUIS ORAL) Take 5 mg by mouth two times a day. - dofetilide (TIKOSYN) 250 mcg capsule Take [...] once daily. Problem List As Of Date 12/27/2024 Noted Resolved Irritable Bowel Syndrome [K58.9] OSTEOPENIA [M89.9, M94.9] 07/04/2009 Esophageal reflux [K21.9] Other forms of migraine [346.8] 05/04/2007 Unspecified constipation [K59.00] Asymptomatic Postmenopausal Status (Age-Related* 10/28/2012 Osteoarth NOS-L/Leg [[id number]] Palpitations [R00.2] 02/23/2009 Osteoporosis [M81.0] 07/04/2009 03/13/2012 Insomnia [G47.00] 02/11/2011 Hyponatremia [E87.1] 02/11/2011 Chronic fatigue disorder [G93.32] 02/11/2011 Paroxysmal atrial fibrillation (HCC) [I48.0] Mitral valve prolapse [I34.1] Closed fracture of lumbar vertebra (HCC) (more content not included)... [facility] 12-13-2024 Note HNO ID: [id number] Author: ANAYELI PETTIT RN Service: ? Author Type: Registered Nurse Type: Progress Notes Filed: 12/13/2024 13:26 Note Text: [facility] Care Path Telephonic Outreach Provider Action/FYI Patient identified by Name and Date of . Discussed care with patient. Still having pain from her fall in October. Did some physical therapy and now has MRI scheduled. Had follow up with ortho/spine at [place]. Gets fatigued. Encouraged to keep trying to move and do the exercises to continue progressing forwards. Program Details Chronic Disease Management Status: Enrolled Effective Dates: 10/17/2024 - present Responsible Staff: Anayeli Pettit RN Support and Services: High Utilizer Program Goals Targets Target Due Completed Completed By Outcome Annual Medicare Wellness visit addressed 01/16/2025 11/16/2024 Anayeli Pettit RN Patient Declined Patient-stated goal addressed (add comment) 01/16/2025 11/16/2024 Anayeli Pettit RN Complete Improvement of back pain and regain my strength after my fall Biannual PCP visit addressed 01/16/2025 11/01/2024 Anayeli Pettit RN Complete/Scheduled General education provided (managing stress, where to go/how to contact, etc.) 11/14/2024 10/17/2024 Anayeli Pettit RN Complete Has a therapist outside [facility] Intake assessments completed: ADLs, Fall Risk, SDOH 11/14/2024 10/17/2024 Anayeli Pettit RN Complete Assessments CDM Assessment Symptoms: Are you experiencing any new or worsening symptoms that you need to talk about today?: No ADLs No documentation this encounter Fall Risk No documentation this encounter SDOH No documentation this encounter Interventions The following were addressed during this visit: - Bi-Weekly Outreach (Recurring) Disposition Based on tafe lecturer, the following disposition is advised: No action needed Anayeli Pettit RN December 13, 2024 1:21 PM [facility] 12-13-2024 History of Presen t illness Narrative Images from the original note were not included. [facility] Care Path Telephonic Outreach Provider Action/FYI Patient identified by Name and Date of . Discussed care with patient. Still having pain from her fall in October. Did some physical therapy and now has MRI scheduled. Had follow up with ortho/spine at [place]. Gets fatigued. Encouraged to keep trying to move and do the exercises to continue progressing forwards. Program Details Chronic Disease Management Status: Enrolled Effective Dates: 10/17/2024 - present Responsible Staff: Anayeli Pettit RN Support and Services: High Utilizer Program Goals Targets Target Due Completed Completed By Outcome Annual Medicare Wellness visit addressed 01/16/2025 11/16/2024 Anayeli Pettit RN Patient Declined Patient-stated goal addressed (add comment) 01/16/2025 11/16/2024 Anayeli Pettit RN Complete Improvement of back pain and regain my strength after my fall Biannual PCP visit addressed 01/16/2025 11/01/2024 Anayeli Pettit RN Complete/Scheduled General education provided (managing stress, where to go/how to contact, etc.) 11/14/2024 10/17/2024 Anayeli Pettit RN Complete Has a therapist outside [facility] Intake assessments completed: ADLs, Fall Risk, SDOH 11/14/2024 10/17/2024 Anayeli Pettit RN Complete Assessments CDM Assessment Symptoms: Are you experiencing any new or worsening symptoms that you need to talk about today?: No ADLs No documentation this encounter Fall Risk No documentation this encounter SDOH No documentation this encounter Interventions The following were addressed during this visit: - Bi-Weekly Outreach (Recurring) Disposition Based on tafe lecturer, the following disposition is advised: No action needed Anayeli Pettit RN December 13, 2024 1:21 PM documented in this encounter [facility] 12-13-2024 Note Patient Outreach ([facility] ROSANA MAKI ([id number]) 1940 F NFR Date Time Provider Department 12/13/24 ANAYELI PETTIT During your visit today, we recorded the following information about you: Anayeli Pettit RN 12/13/2024 1:26 PM Signed [facility] Telephonic Outreach Provider Action/FYI Patient identified by Name and Date of . Discussed care with patient. Still having pain from her fall in October. Did some physical therapy and now has MRI scheduled. Had follow up with ortho/spine at [place]. Gets fatigued. Encouraged to keep trying to move and do the exercises to continue progressing forwards. Program Details Chronic Disease Management Status: Enrolled Effective Dates: 10/17/2024 - present Responsible Staff: Anayeli Pettit RN Support and Services: High Utilizer Program Goals Targets Target Due Completed Completed By Outcome Annual Medicare Wellness visit addressed 01/16/2025 11/16/2024 Anayeli Pettit RN Patient Declined Patient-stated goal addressed (add comment) 01/16/2025 11/16/2024 Anayeli Pettit RN Complete Improvement of back pain and regain my strength after my fall Biannual PCP visit addressed 01/16/2025 11/01/2024 Anayeli Pettit RN Complete/Scheduled General education provided (managing stress, where to go/how to contact, etc.) 11/14/2024 10/17/2024 Anayeli Pettit RN Complete Has a therapist outside [facility] Intake assessments completed: ADLs, Fall Risk, SDOH 11/14/2024 10/17/2024 Anayeli Pettit RN Complete Assessments CDM Assessment Symptoms: Are you experiencing any new or worsening symptoms that you need to talk about today?: No ADLs No documentation this encounter Fall Risk No documentation this encounter SDOH No documentation this encounter Interventions The following were addressed during this visit: - Bi-Weekly Outreach (Recurring) Disposition Based on tafe lecturer, the following disposition is advised: No action needed Anayeli Pettit RN December 13, 2024 1:21 PM Allergies As of Date: 12/13/2024 Noted Allergy Reaction ADHESIVE TAPE (ROSINS) 11/11/2013 2 - Rash CANTALOUPE 08/12/2005 ERYTHROMYCIN 08/12/2005 8 - GI Upset GEMTESA (VIBEGRON) 07/09/2023 6 - Diarrhea GRASS POLLEN 08/13/2005 MOLD 08/13/2005 PENICILLINS 08/12/2005 2 - Rash 7 - Swelling POLLEN 08/13/2005 PREVACID (LANSOPRAZOLE) 05/02/2014 6 - Diarrhea Comments: All PPIs tried have given her diarrhea. SULFA (SULFONAMIDE ANTIBIOTICS) 08/12/2005 Comments: Pt uncertain if Sulfa allergy is accurate or not. Date Reviewed: 11/08/2024 Reviewed by: Teri Araiza LPN - Fully Assessed Prescriptions as of 12/13/2024 - fludrocortisone (FLORINEF) 0.1 mg tablet Taking 3 times a week - midodrine (PROAMATINE) 2.5 mg tablet Take 2.5 mg by mouth two times a day. - lidocaine (LIDODERM) 5 % Place patch to back for 12 hours. Remove old patch and wait 12 hours prior to placing new patch. - tiZANidine (ZANAFLEX) 2 mg tablet Take 1 tablet by mouth every 6 hours as needed. - zoledronic acid (ZOMETA INTRAVENOUS) Inject intravenously. Every 6 months - esomeprazole (NEXIUM) 40 mg capsule Take 1 capsule by mouth daily before breakfast. 1/2 hr before meal. - famotidine (PEPCID) 20 mg tablet take 1 tablet by mouth at bedtime if needed - BENEFIBER, GUAR GUM, ORAL Take 2 teaspoonsful by mouth two times a day as needed. - meclizine (ANTIVERT) 25 mg tab Take 1 tablet by mouth every 6 hours as needed (dizziness). - Magnesium Glycinate 120mg 3 at night Stress, blood sugar, thyroid/hormones/adrenals/sleep/ energy/toxins/muscles/constipati on/asthma Work up to 3 capsules with meals at night - can cause loose stools - metoprolol succinate ER (TOPROL XL) 25 mg 24 hr tablet Take half tablet in the morning and 1 tablet in the evening. - APIXABAN (ELIQUIS ORAL) Take 5 mg by mouth two times a day. - dofetilide (TIKOSYN) 250 mcg capsule Take [...] once daily. Problem List As Of Date 12/13/2024 Noted Resolved Irritable Bowel Syndrome [K58.9] OSTEOPENIA [M89.9, M94.9] 07/04/2009 Esophageal reflux [K21.9] Other forms of migraine [346.8] 05/04/2007 Unspecified constipation [K59.00] Asymptomatic Postmenopausal Status (Age-Related* 10/28/2012 Osteoarth NOS-L/Leg [LML1706] Palpitations [R00.2] 02/23/2009 Osteoporosis [M81.0] 07/04/2009 03/13/2012 Insomnia [G47.00] 02/11/2011 Hyponatremia [E87.1] 02/11/2011 Chronic fatigue disorder [G93.32] 02/11/2011 Paroxysmal atrial fibrillation (HCC) [I48.0] Mitral valve prolapse [I34.1] Closed fracture of lumbar vertebra (HCC) [S32.0*10/18/2012 Dizziness and gi (more content not included)... [facility] 12-09-2024 Note HNO ID: [id number] Author: NANCY RANGEL MA Service: ? Author Type: Inserting Operator Type: Progress Notes Filed: 12/09/2024 13:06 Note Text: POPULATION HEALTH NAVIGATION OUTREACH Action/FYI Pt is due for wellness visit Spoke with patient and scheduled appt Reason for Outreach Care Gap/HCC or Scheduling Wellness Visits Care Gaps due: Medicare Annual Wellness Visit Patient Contacted: Spoke to patient/parent/or legal guardian Patient identified by name and : Yes Care Gap/HCC/Scheduling Wellness actions taken: Patient scheduled/pended orders: Medicare Annual Wellness Visit 02/10/2025 in [facility] with ROCHELLE HACKETT - 3 month follow up 05/11/2025 in [facility] with AL NICHOLE - Medicare wellness visit Navigation Signature: Nancy Rangel MA December 09, 2024 1:06 PM [facility] 12-09-2024 History of Presen t illness Narrative POPULATION HEALTH NAVIGATION OUTREACH Action/FYI Pt is due for wellness visit Spoke with patient and scheduled appt Reason for Outreach Care Gap/HCC or Scheduling Wellness Visits Care Gaps due: Medicare Annual Wellness Visit Patient Contacted: Spoke to patient/parent/or legal guardian Patient identified by name and : Yes Care Gap/HCC/Scheduling Wellness actions taken: Patient scheduled/pended orders: Medicare Annual Wellness Visit [facility] - 3 month follow up 05/11/2025 in [facility] with AL NICHOLE - Medicare wellness visit Navigation Signature: Nancy Rangel MA December 09, 2024 1:06 PM documented in this encounter [facility] 12-09-2024 Note Patient Outreach ([facility]) ROSANA MAKI ([id number]) 1940 F NFR Date Time Provider Department 12/09/24 NANCY RANGEL NETANGELV During your visit today, we recorded the following information about you: Nancy Rangel MA 12/09/2024 1:06 PM Signed POPULATION HEALTH NAVIGATION OUTREACH Action/FYI Pt is due for wellness visit Spoke with patient and scheduled appt Reason for Outreach Care Gap/HCC or Scheduling Wellness Visits Care Gaps due: Medicare Annual Wellness Visit Patient Contacted: Spoke to patient/parent/or legal guardian Patient identified by name and : Yes Care Gap/HCC/Scheduling Wellness actions taken: Patient scheduled/pended orders: Medicare Annual Wellness Visit [facility] - 3 month follow up 05/11/2025 [facility] AL NICHOLE - Medicare wellness visit Navigation Signature: Nancy Rangel MA December 09, 2024 1:06 PM Allergies As of Date: 12/09/2024 Noted Allergy Reaction ADHESIVE TAPE (ROSINS) 11/11/2013 2 - Rash CANTALOUPE 08/12/2005 ERYTHROMYCIN 08/12/2005 8 - GI Upset GEMTESA (VIBEGRON) 07/09/2023 6 - Diarrhea GRASS POLLEN 08/13/2005 MOLD 08/13/2005 PENICILLINS 08/12/2005 2 - Rash 7 - Swelling POLLEN 08/13/2005 PREVACID (LANSOPRAZOLE) 05/02/2014 6 - Diarrhea Comments: All PPIs tried have given her diarrhea. SULFA (SULFONAMIDE ANTIBIOTICS) 08/12/2005 Comments: Pt uncertain if Sulfa allergy is accurate or not. Date Reviewed: 11/08/2024 Reviewed by: Teri Araiza LPN - Fully Assessed Reason for Visit: Population Health Navigation Outreach [3910] Cmt: Jing high risk attempt # 1 Prescriptions as of 12/09/2024 - fludrocortisone (FLORINEF) 0.1 mg tablet Taking 3 times a week - midodrine (PROAMATINE) 2.5 mg tablet Take 2.5 mg by mouth two times a day. - lidocaine (LIDODERM) 5 % Place patch to back for 12 hours. Remove old patch and wait 12 hours prior to placing new patch. - tiZANidine (ZANAFLEX) 2 mg tablet Take 1 tablet by mouth every 6 hours as needed. - zoledronic acid (ZOMETA INTRAVENOUS) Inject intravenously. Every 6 months - esomeprazole (NEXIUM) 40 mg capsule Take 1 capsule by mouth daily before breakfast. 1/2 hr before meal. - famotidine (PEPCID) 20 mg tablet take 1 tablet by mouth at bedtime if needed - BENEFIBER, GUAR GUM, ORAL Take 2 teaspoonsful by mouth two times a day as needed. - meclizine (ANTIVERT) 25 mg tab Take 1 tablet by mouth every 6 hours as needed (dizziness). - Magnesium Glycinate 120mg 3 at night Stress, blood sugar, thyroid/hormones/adrenals/sleep/ energy/toxins/muscles/constipati on/asthma Work up to 3 capsules with meals at night - can cause loose stools - metoprolol succinate ER (TOPROL XL) 25 mg 24 hr tablet Take half tablet in the morning and 1 tablet in the evening. - APIXABAN (ELIQUIS ORAL) Take 5 mg by mouth two times a day. - dofetilide (TIKOSYN) 250 mcg capsule Take [...] once daily. Problem List As Of Date 12/09/2024 Noted Resolved Irritable Bowel Syndrome [K58.9] OSTEOPENIA [M89.9, M94.9] 07/04/2009 Esophageal reflux [K21.9] Other forms of migraine [346.8] 05/04/2007 Unspecified constipation [K59.00] Asymptomatic Postmenopausal Status (Age-Related* 10/28/2012 Osteoarth NOS-L/Leg [[id number]] Palpitations [R00.2] 02/23/2009 Osteoporosis [M81.0] 07/04/2009 03/13/2012 Insomnia [G47.00] 02/11/2011 Hyponatremia [E87.1] 02/11/2011 Chronic fatigue disorder [G93.32] 02/11/2011 Paroxysmal atrial fibrillation (HCC) [I48.0] Mitral valve prolapse [I34.1] Closed fracture of lumbar vertebra (HCC) [S32.0*10/18/2012 Dizziness and giddiness [R42] 03/08/2013 Pain in joint, lower leg [M25.569] 04/27/2014 Right-sided low back pain with right-sided scia*07/24/2015 Neck pain [M54.2] 08/16/2015 Major depressive disorder, recurrent, in partia*12/20/2015 Osteopenia [M85.80] 12/20/2015 Chronic right shoulder pain [M25.511, G89.29] 11/11/2016 Anxiety and depression [F41.9, F32.A] 02/05/2017 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 Author Type: Registered Nurse Type: Progress Notes Filed: 11/29/2024 14:37 Note Text: [facility] Care Path Telephonic Outreach Provider Action/FYI Patient identified by Name and Date of . Discussed care with patient. Recovering slowly from her fall. Continues to work with physical therapy. Feels she tires easily. Program Details Chronic Disease Management Status: Enrolled Effective Dates: 10/17/2024 - present Responsible Staff: Anayeli Pettit RN Support and Services: High Utilizer Program Goals Targets Target Due Completed Completed By Outcome Annual Medicare Wellness visit addressed 01/16/2025 11/16/2024 Anayeli Pettit RN Patient Declined Patient-stated goal addressed (add comment) 01/16/2025 11/16/2024 Anayeli Pettit RN Complete Improvement of back pain and regain my strength after my fall Biannual PCP visit addressed 01/16/2025 11/01/2024 Anayeli Pettit RN Complete/Scheduled General education provided (managing stress, where to go/how to contact, etc.) 11/14/2024 10/17/2024 Anayeli Pettit RN Complete Has a therapist outside [facility] Intake assessments completed: ADLs, Fall Risk, SDOH 11/14/2024 10/17/2024 Anayeli Pettit RN Complete Assessments CDM Assessment Medications: Do you need any medication refills at this time, including any of the medication you might take only when needed?: No Symptoms: Are you experiencing any new or worsening symptoms that you need to talk about today?: No ADLs No documentation this encounter Fall Risk No documentation this encounter SDOH No documentation this encounter Interventions The following were addressed during this visit: - Bi-Weekly Outreach (Recurring) Disposition Based on tafe lecturer, the following disposition is advised: No action needed Anayeli Pettit RN November 29, 2024 2:34 PM [facility] 11-29-2024 History of Presen t illness Narrative Images from the original note were not included. [facility] Care Path Telephonic Outreach Provider Action/FYI Patient identified by Name and Date of . Discussed care with patient. Recovering slowly from her fall. Continues to work with physical therapy. Feels she tires easily. Program Details Chronic Disease Management Status: Enrolled Effective Dates: 10/17/2024 - present Responsible Staff: Anayeli Pettit RN Support and Services: High Utilizer Program Goals Targets Target Due Completed Completed By Outcome Annual Medicare Wellness visit addressed 01/16/2025 11/16/2024 Anayeli Pettit RN Patient Declined Patient-stated goal addressed (add comment) 01/16/2025 11/16/2024 Anayeli Pettit RN Complete Improvement of back pain and regain my strength after my fall Biannual PCP visit addressed 01/16/2025 11/01/2024 Anayeli Pettit RN Complete/Scheduled General education provided (managing stress, where to go/how to contact, etc.) 11/14/2024 10/17/2024 Anayeli Pettit RN Complete Has a therapist outside [facility] Intake assessments completed: ADLs, Fall Risk, SDOH 11/14/2024 10/17/2024 Anayeli Pettit RN Complete Assessments CDM Assessment Medications: Do you need any medication refills at this time, including any of the medication you might take only when needed?: No Symptoms: Are you experiencing any new or worsening symptoms that you need to talk about today?: No ADLs No documentation this encounter Fall Risk No documentation this encounter SDOH No documentation this encounter Interventions The following were addressed during this visit: - Bi-Weekly Outreach (Recurring) Disposition Based on tafe lecturer, the following disposition is advised: No action needed Anayeli Pettit RN November 29, 2024 2:34 PM documented in this encounter [facility] 11-29-2024 Note Patient Outreach ([facility] ROSANA MAKI ([id number]) 1940 F NFR Date Time Provider Department 11/29/24 PETTIT, ANAYELI [facility] During your visit today, we recorded the following information about you: Anayeli Pettit RN 11/29/2024 2:37 PM Signed CDM Care Path Telephonic Outreach Provider Action/FYI Patient identified by Name and Date of . Discussed care with patient. Recovering slowly from her fall. Continues to work with physical therapy. Feels she tires easily. Program Details Chronic Disease Management Status: Enrolled Effective Dates: 10/17/2024 - present Responsible Staff: Anayeli Pettit RN Support and Services: High Utilizer Program Goals Targets Target Due Completed Completed By Outcome Annual Medicare Wellness visit addressed 01/16/2025 11/16/2024 Anayeli Pettit RN Patient Declined Patient-stated goal addressed (add comment) 01/16/2025 11/16/2024 Anayeli Pettit RN Complete Improvement of back pain and regain my strength after my fall Biannual PCP visit addressed 01/16/2025 11/01/2024 Anayeli Pettit RN Complete/Scheduled General education provided (managing stress, where to go/how to contact, etc.) 11/14/2024 10/17/2024 Anayeli Pettit RN Complete Has a therapist outside [facility] Intake assessments completed: ADLs, Fall Risk, SDOH 11/14/2024 10/17/2024 Anayeli Pettit RN Complete Assessments CDM Assessment Medications: Do you need any medication refills at this time, including any of the medication you might take only when needed?: No Symptoms: Are you experiencing any new or worsening symptoms that you need to talk about today?: No ADLs No documentation this encounter Fall Risk No documentation this encounter SDOH No documentation this encounter Interventions The following were addressed during this visit: - Bi-Weekly Outreach (Recurring) Disposition Based on tafe lecturer, the following disposition is advised: No action needed Anayeli Pettit RN November 29, 2024 2:34 PM Allergies As of Date: 11/29/2024 Noted Allergy Reaction ADHESIVE TAPE (ROSINS) 11/11/2013 2 - Rash CANTALOUPE 08/12/2005 ERYTHROMYCIN 08/12/2005 8 - GI Upset GEMTESA (VIBEGRON) 07/09/2023 6 - Diarrhea GRASS POLLEN 08/13/2005 MOLD 08/13/2005 PENICILLINS 08/12/2005 2 - Rash 7 - Swelling POLLEN 08/13/2005 PREVACID (LANSOPRAZOLE) 05/02/2014 6 - Diarrhea Comments: All PPIs tried have given her diarrhea. SULFA (SULFONAMIDE ANTIBIOTICS) 08/12/2005 Comments: Pt uncertain if Sulfa allergy is accurate or not. Date Reviewed: 11/08/2024 Reviewed by: Teri Araiza LPN - Fully Assessed Prescriptions as of 11/29/2024 - fludrocortisone (FLORINEF) 0.1 mg tablet Taking 3 times a week - midodrine (PROAMATINE) 2.5 mg tablet Take 2.5 mg by mouth two times a day. - lidocaine (LIDODERM) 5 % Place patch to back for 12 hours. Remove old patch and wait 12 hours prior to placing new patch. - tiZANidine (ZANAFLEX) 2 mg tablet Take 1 tablet by mouth every 6 hours as needed. - zoledronic acid (ZOMETA INTRAVENOUS) Inject intravenously. Every 6 months - esomeprazole (NEXIUM) 40 mg capsule Take 1 capsule by mouth daily before breakfast. 1/2 hr before meal. - famotidine (PEPCID) 20 mg tablet take 1 tablet by mouth at bedtime if needed - BENEFIBER, GUAR GUM, ORAL Take 2 teaspoonsful by mouth two times a day as needed. - meclizine (ANTIVERT) 25 mg tab Take 1 tablet by mouth every 6 hours as needed (dizziness). - Magnesium Glycinate 120mg 3 at night Stress, blood sugar, thyroid/hormones/adrenals/sleep/ energy/toxins/muscles/constipati on/asthma Work up to 3 capsules with meals at night - can cause loose stools - metoprolol succinate ER (TOPROL XL) 25 mg 24 hr tablet Take half tablet in the morning and 1 tablet in the evening. - APIXABAN (ELIQUIS ORAL) Take 5 mg by mouth two times a day. - dofetilide (TIKOSYN) 250 mcg capsule Take [...] once daily. Problem List As Of Date 11/29/2024 Noted Resolved Irritable Bowel Syndrome [K58.9] OSTEOPENIA [M89.9, M94.9] 07/04/2009 Esophageal reflux [K21.9] Other forms of migraine [346.8] 05/04/2007 Unspecified constipation [K59.00] Asymptomatic Postmenopausal Status (Age-Related* 10/28/2012 Osteoarth NOS-L/Leg [[id number]] Palpitations [R00.2] 02/23/2009 Osteoporosis [M81.0] 07/04/2009 03/13/2012 Insomnia [G47.00] 02/11/2011 Hyponatremia [E87.1] 02/11/2011 Chronic fatigue disorder [G93.32] 02/11/2011 Paroxysmal atrial fibrillation (HCC) [I48.0] Mitral valve prolapse [I34.1] Closed fracture of lumbar vertebra (HCC) [S32.0*10/18/2012 Dizziness and giddiness [R4 (more content not included)... [facility] 11-16-2024 Note HNO ID: [id number] Author: ANAYELI PETTIT RN Service: ? Author Type: Registered Nurse Type: Progress Notes Filed: 11/16/2024 12:08 Note Text: [facility] Care Path Telephonic Outreach Provider Action/FYI Patient identified by Name and Date of . Discussed care with patient. Patient had a fall and hurt her back. Starting to improve. Working with PT. Program Details Chronic Disease Management Status: Enrolled Effective Dates: 10/17/2024 - present Responsible Staff: Anayeli Petitt RN Support and Services: High Utilizer Program Goals Targets Target Due Completed Completed By Outcome Annual Medicare Wellness visit addressed 01/16/2025 11/16/2024 Anayeli Pettit RN Patient Declined Patient-stated goal addressed (add comment) 01/16/2025 11/16/2024 Anayeli Pettit RN Complete Improvement of back pain and regain my strength after my fall Biannual PCP visit addressed 01/16/2025 11/01/2024 Anayeli Pettit RN Complete/Scheduled General education provided (managing stress, where to go/how to contact, etc.) 11/14/2024 10/17/2024 Anayeli Pettit RN Complete Has a therapist outside [facility] Intake assessments completed: ADLs, Fall Risk, SDOH 11/14/2024 10/17/2024 Anayeli Pettit RN Complete Assessments CDM Assessment Medications: Do you need any medication refills at this time, including any of the medication you might take only when needed?: No Symptoms: Are you experiencing any new or worsening symptoms that you need to talk about today?: No ADLs No documentation this encounter Fall Risk No documentation this encounter SDOH No documentation this encounter Interventions The following were addressed during this visit: - Annual Medicare Wellness visit addressed - Patient-stated goal addressed (add comment) - Schedule Annual Wellness Visit - Develop a Patient-Stated Goal (add to Target comments) - Bi-Weekly Outreach (Recurring) Disposition Based on tafe lecturer, the following disposition is advised: No action needed Anayeli Pettit RN November 16, 2024 12:02 PM [facility] 11-16-2024 History of Presen t illness Narrative Images from the original note were not included. [facility] Care Path Telephonic Outreach Provider Action/FYI Patient identified by Name and Date of . Discussed care with patient. Patient had a fall and hurt her back. Starting to improve. Working with PT. Program Details Chronic Disease Management Status: Enrolled Effective Dates: 10/17/2024 - present Responsible Staff: Anayeli Pettit RN Support and Services: High Utilizer Program Goals Targets Target Due Completed Completed By Outcome Annual Medicare Wellness visit addressed 01/16/2025 11/16/2024 Anayeli Pettit RN Patient Declined Patient-stated goal addressed (add comment) 01/16/2025 11/16/2024 Anayeli Pettit RN Complete Improvement of back pain and regain my strength after my fall Biannual PCP visit addressed 01/16/2025 11/01/2024 Anayeli Pettit RN Complete/Scheduled General education provided (managing stress, where to go/how to contact, etc.) 11/14/2024 10/17/2024 Anayeli Pettit RN Complete Has a therapist outside [facility] Intake assessments completed: ADLs, Fall Risk, SDOH 11/14/2024 10/17/2024 Anayeli Pettit RN Complete Assessments CDM Assessment Medications: Do you need any medication refills at this time, including any of the medication you might take only when needed?: No Symptoms: Are you experiencing any new or worsening symptoms that you need to talk about today?: No ADLs No documentation this encounter Fall Risk No documentation this encounter SDOH No documentation this encounter Interventions The following were addressed during this visit: - Annual Medicare Wellness visit addressed - Patient-stated goal addressed (add comment) - Schedule Annual Wellness Visit - Develop a Patient-Stated Goal (add to Target comments) - Bi-Weekly Outreach (Recurring) Disposition Based on tafe lecturer, the following disposition is advised: No action needed Anayeli Pettit RN November 16, 2024 12:02 PM documented in this encounter [facility] 11-16-2024 Note Patient Outreach ([facility] ROSANA MAKI ([id number]) 1940 F NFR Date Time Provider Department 11/16/24 ANAYELI PETTITG During your visit today, we recorded the following information about you: Anayeli Pettit RN 11/16/2024 12:08 PM Signed [facility] Care Path Telephonic Outreach Provider Action/FYI Patient identified by Name and Date of . Discussed care with patient. Patient had a fall and hurt her back. Starting to improve. Working with PT. Program Details Chronic Disease Management Status: Enrolled Effective Dates: 10/17/2024 - present Responsible Staff: Anayeli Pettit RN Support and Services: High Utilizer Program Goals Targets Target Due Completed Completed By Outcome Annual Medicare Wellness visit addressed 01/16/2025 11/16/2024 Anayeli Pettit RN Patient Declined Patient-stated goal addressed (add comment) 01/16/2025 11/16/2024 Anayeli Pettit RN Complete Improvement of back pain and regain my strength after my fall Biannual PCP visit addressed 01/16/2025 11/01/2024 Anayeli Pettit RN Complete/Scheduled General education provided (managing stress, where to go/how to contact, etc.) 11/14/2024 10/17/2024 Anayeli Pettit RN Complete Has a therapist outside [facility] Intake assessments completed: ADLs, Fall Risk, SDOH 11/14/2024 10/17/2024 Anayeli Pettit RN Complete Assessments CDM Assessment Medications: Do you need any medication refills at this time, including any of the medication you might take only when needed?: No Symptoms: Are you experiencing any new or worsening symptoms that you need to talk about today?: No ADLs No documentation this encounter Fall Risk No documentation this encounter SDOH No documentation this encounter Interventions The following were addressed during this visit: - Annual Medicare Wellness visit addressed - Patient-stated goal addressed (add comment) - Schedule Annual Wellness Visit - Develop a Patient-Stated Goal (add to Target comments) - Bi-Weekly Outreach (Recurring) Disposition Based on tafe lecturer, the following disposition is advised: No action needed Anayeli Pettit RN November 16, 2024 12:02 PM Allergies As of Date: 11/16/2024 Noted Allergy Reaction ADHESIVE TAPE (ROSINS) 11/11/2013 2 - Rash CANTALOUPE 08/12/2005 ERYTHROMYCIN 08/12/2005 8 - GI Upset GEMTESA (VIBEGRON) 07/09/2023 6 - Diarrhea GRASS POLLEN 08/13/2005 MOLD 08/13/2005 PENICILLINS 08/12/2005 2 - Rash 7 - Swelling POLLEN 08/13/2005 PREVACID (LANSOPRAZOLE) 05/02/2014 6 - Diarrhea Comments: All PPIs tried have given her diarrhea. SULFA (SULFONAMIDE ANTIBIOTICS) 08/12/2005 Comments: Pt uncertain if Sulfa allergy is accurate or not. Date Reviewed: 11/08/2024 Reviewed by: Teri Araiza LPN - Fully Assessed Prescriptions as of 11/16/2024 - fludrocortisone (FLORINEF) 0.1 mg tablet Taking 3 times a week - midodrine (PROAMATINE) 2.5 mg tablet Take 2.5 mg by mouth two times a day. - lidocaine (LIDODERM) 5 % Place patch to back for 12 hours. Remove old patch and wait 12 hours prior to placing new patch. - tiZANidine (ZANAFLEX) 2 mg tablet Take 1 tablet by mouth every 6 hours as needed. - zoledronic acid (ZOMETA INTRAVENOUS) Inject intravenously. Every 6 months - esomeprazole (NEXIUM) 40 mg capsule Take 1 capsule by mouth daily before breakfast. 1/2 hr before meal. - famotidine (PEPCID) 20 mg tablet take 1 tablet by mouth at bedtime if needed - BENEFIBER, GUAR GUM, ORAL Take 2 teaspoonsful by mouth two times a day as needed. - meclizine (ANTIVERT) 25 mg tab Take 1 tablet by mouth every 6 hours as needed (dizziness). - Magnesium Glycinate 120mg 3 at night Stress, blood sugar, thyroid/hormones/adrenals/sleep/ energy/toxins/muscles/constipati on/asthma Work up to 3 capsules with meals at night - can cause loose stools - metoprolol succinate ER (TOPROL XL) 25 mg 24 hr tablet Take half tablet in the morning and 1 tablet in the evening. - APIXABAN (ELIQUIS ORAL) Take 5 mg by mouth two times a day. - dofetilide (TIKOSYN) 250 mcg capsule Take [...] once daily. Problem List As Of Date 11/16/2024 Noted Resolved Irritable Bowel Syndrome [K58.9] OSTEOPENIA [M89.9, M94.9] 07/04/2009 Esophageal reflux [K21.9] Other forms of migraine [346.8] 05/04/2007 Unspecified constipation [K59.00] Asymptomatic Postmenopausal Status (Age-Related* 10/28/2012 Osteoarth NOS-L/Leg [[id number]] Palpitations [R00.2] 02/23/2009 Osteoporosis [M81.0] 07/04/2009 03/13/2012 Insomnia [G47.00] 02/11/2011 Hyponatremia [E87.1] 02/11/2011 Chronic fatigue disorder [G93.32] 02/11/2011 Parox (more content not included)... [facility] 11-10-2024 Note HNO ID: [id number] Author: ?, ?, ? Service: ? Author Type: ? Type: Progress Notes Filed: 11/10/2024 11:19 Note Text: POPULATION HEALTH NAVIGATION OUTREACH Action/[facility] Support: Called pt to schedule an appt in Pain Management. Lvm for pt to call [phone] for scheduling. Any agent can assist. Reason for Outreach Care Gap/HCC or Scheduling Wellness Visits Care Gaps due: N/A Patient Contacted: Unable or unnecessary to reach patient: Left message [employer] message sent Navigation Signature: Jeffrey Armstrong November 10, 2024 11:19 AM [facility] 11-10-2024 History of Presen t illness Narrative POPULATION HEALTH NAVIGATION OUTREACH Action/[facility] Support: Called pt to schedule an appt in Pain Management. Lvm for pt to call [phone] for scheduling. Any agent can assist. Reason for Outreach Care Gap/HCC or Scheduling Wellness Visits Care Gaps due: N/A Patient Contacted: Unable or unnecessary to reach patient: Left message [employer] sent Navigation Signature: Jeffrey Armstrong November 10, 2024 11:19 AM documented in this encounter [facility] 11-10-2024 Note Patient Outreach (NE TNAV) ROSANA MAKI ([id number]) 1940 F NFR Date Time Provider Department 11/10/24 NO PCP (HIST) SHABANA During your visit today, we recorded the following information about you: Jeffrey Armstrong 11/10/2024 11:19 AM Signed POPULATION HEALTH NAVIGATION OUTREACH Action/[facility] Support: Called pt to schedule an appt in Pain Management. Lvm for pt to call [phone] for scheduling. Any agent can assist. Reason for Outreach Care Gap/HCC or Scheduling Wellness Visits Care Gaps due: N/A Patient Contacted: Unable or unnecessary to reach patient: Left message [employer] message sent Navigation Signature: Jeffrey Armstrong November 10, 2024 11:19 AM Allergies As of Date: 11/10/2024 Noted Allergy Reaction ADHESIVE TAPE (ROSINS) 11/11/2013 2 - Rash CANTALOUPE 08/12/2005 ERYTHROMYCIN 08/12/2005 8 - GI Upset GEMTESA (VIBEGRON) 07/09/2023 6 - Diarrhea GRASS POLLEN 08/13/2005 MOLD 08/13/2005 PENICILLINS 08/12/2005 2 - Rash 7 - Swelling POLLEN 08/13/2005 PREVACID (LANSOPRAZOLE) 05/02/2014 6 - Diarrhea Comments: All PPIs tried have given her diarrhea. SULFA (SULFONAMIDE ANTIBIOTICS) 08/12/2005 Comments: Pt uncertain if Sulfa allergy is accurate or not. Date Reviewed: 11/08/2024 Reviewed by: Teri Araiza LPN - Fully Assessed Prescriptions as of 11/10/2024 - fludrocortisone (FLORINEF) 0.1 mg tablet Taking 3 times a week - midodrine (PROAMATINE) 2.5 mg tablet Take 2.5 mg by mouth two times a day. - lidocaine (LIDODERM) 5 % Place patch to back for 12 hours. Remove old patch and wait 12 hours prior to placing new patch. - tiZANidine (ZANAFLEX) 2 mg tablet Take 1 tablet by mouth every 6 hours as needed. - zoledronic acid (ZOMETA INTRAVENOUS) Inject intravenously. Every 6 months - esomeprazole (NEXIUM) 40 mg capsule Take 1 capsule by mouth daily before breakfast. 1/2 hr before meal. - famotidine (PEPCID) 20 mg tablet take 1 tablet by mouth at bedtime if needed - BENEFIBER, GUAR GUM, ORAL Take 2 teaspoonsful by mouth two times a day as needed. - meclizine (ANTIVERT) 25 mg tab Take 1 tablet by mouth every 6 hours as needed (dizziness). - Magnesium Glycinate 120mg 3 at night Stress, blood sugar, thyroid/hormones/adrenals/sleep/ energy/toxins/muscles/constipati on/asthma Work up to 3 capsules with meals at night - can cause loose stools - metoprolol succinate ER (TOPROL XL) 25 mg 24 hr tablet Take half tablet in the morning and 1 tablet in the evening. - APIXABAN (ELIQUIS ORAL) Take 5 mg by mouth two times a day. - dofetilide (TIKOSYN) 250 mcg capsule Take [...] once daily. Problem List As Of Date 11/10/2024 Noted Resolved Irritable Bowel Syndrome [K58.9] OSTEOPENIA [M89.9, M94.9] 07/04/2009 Esophageal reflux [K21.9] Other forms of migraine [346.8] 05/04/2007 Unspecified constipation [K59.00] Asymptomatic Postmenopausal Status (Age-Related* 10/28/2012 Osteoarth NOS-L/Leg [UWA8820] Palpitations [R00.2] 02/23/2009 Osteoporosis [M81.0] 07/04/2009 03/13/2012 Insomnia [G47.00] 02/11/2011 Hyponatremia [E87.1] 02/11/2011 Chronic fatigue disorder [G93.32] 02/11/2011 Paroxysmal atrial fibrillation (HCC) [I48.0] Mitral valve prolapse [I34.1] Closed fracture of lumbar vertebra (HCC) [S32.0*10/18/2012 Dizziness and giddiness [R42] 03/08/2013 Pain in joint, lower leg [M25.569] 04/27/2014 Right-sided low back pain with right-sided scia*07/24/2015 Neck pain [M54.2] 08/16/2015 Major depressive disorder, recurrent, in partia*12/20/2015 Osteopenia [M85.80] 12/20/2015 Chronic right shoulder pain [M25.511, G89.29] 11/11/2016 Anxiety and depression [F41.9, F32.A] 02/05/2017 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 (syndrome of inappropriate ADH production*03/09/2018 Chronic pain of right knee [M25.561, G89.29] 10/06/2018 Hospital discharge follow-up [Z09] 11/18/2019 11/12/2022 Mild cognitive disorder [F09] 11/27/2020 Protein-calorie malnutrition, unspecified sever*01/14/2023 Encounter Status:Closed by JEFFREY ARMSTRONG on 11/10/24 [facility] 11-08-2024 Telephone encounter Note Faxed physical therapy order and face sheet to [facility] per patient request Teri Araiza LPN November 08, 2024 10:36 AM [facility] 11-08-2024 Miscellaneous Notes Faxed physical therapy order and face sheet to [facility] per patient request Teri Araiza LPN November 08, 2024 10:36 AM documented in this encounter [facility] 11-08-2024 History of Presen t illness Narrative Reason for Visit Patient presents with: Jael Maki is a 84 year old female who presents here today for Above Complaints.. Health Maintenance There are no preventive care reminders to display for this patient. HPI This is a 84-year-old woman with a past medical history of adrenal insufficiency, a flutter, irritable bowel, severe osteoporosis with closed fracture of the lumbar vertebra, anxiety depression, dizziness and giddiness, SIADH, history of breast cancer, esophageal reflux, chronic fatigue syndrome, atrophic vaginitis, anemia and mild cognitive disorder. She was admitted 3-4 times in the past year for different reasons one of them being abnormality of gait and mobility, orthostatic hypotension, polyneuropathy, uti, epistaxis. Breast cancer and osteoporosis:She is now on zometa, was taking prolia, she has stopped the arimidex, will be having a BMD, and mammogram in May . Afib: on eliquis and tikosyn. Bleeding episodes are most bothersome. The last epistaxis needed cautery by Dr Shin. 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 Related to arimidex Anxiety depression: she sees the therapist every other week as the ssri worsen her SIADH. So she is doing well on the therapy. SIADH: followed by Dr. Enciso. On and off she goes into hyponatremia which presents in different ways and she has to be hospitalized most of this times. November 08, 2024 Had a fall in the rest room, 10 days ago. It was in the restroom, she had been throwing up a lot, lost her balance and fell against the bath tub. helped her get off the bathroom floor, went to ER, got saline. She did not complain of back pain so they just sent her home. In a wheel chair today, has severe pain. No new fracture but it flared the old pains and issues. She is getting set up with pain management. She notes she can walk but tends to tip over. Has a walker at home from mother, but may need one customized for her. She has lost around 5 pounds since this and legs are weaker. She has done a lot of Physical Therapy. She does not sleep much due to insomnia, needs CBT, does not have sleep apnea. She is getting medication for osteoporosis , Zometa, every 6 months. She is taking calcium and vitamin d. She is on midodrine for bp and seems that it really helps her. This was started by her health information technician Dr. Cooley No problem-specific Assessment & Plan notes found for this encounter. Reviewed past medical history PAST SURGICAL HISTORY Procedure Laterality Date CATHETER, [...] Never Smokeless tobacco: Never Vaping Use Vaping status: Never Used Substance Use Topics Alcohol use: Yes Alcohol/week: 1.0 standard drink of alcohol Types: 1 Glasses of Wine (5oz) per week Comment: 1 glass per week Drug use: No Past medical history, appointments, medications, allergies reviewed. Pertinent Lab/Diagnostic Studies are reviewed and discussed today Current Outpatient Medications: traMADol (ULTRAM) 50 mg tablet midodrine (PROAMATINE) 2.5 mg tablet lidocaine (LIDODERM) 5 % tiZANidine (ZANAFLEX) 2 mg tablet zoledronic acid (ZOMETA INTRAVENOUS) esomeprazole (NEXIUM) 40 mg capsule famotidine (PEPCID) 20 mg tablet BENEFIBER, GUAR GUM, ORAL meclizine (ANTIVERT) 25 mg tab fludrocortisone (FLORINEF) 0.1 mg tablet Magnesium Glycinate 120mg 3 at night Stress, blood sugar, thyroid/hormones/adrenals/sleep/ energy/toxins/muscles/constipati on/asthma metoprolol succinate ER (TOPROL XL) 25 mg 24 hr tablet APIXABAN (ELIQUIS ORAL) dofetilide (TIKOSYN) 250 [...] or numbness of concern. Physical Exam BP 110/78 Pulse 73 Ht 170.2 cm (5' 7) Wt 52.2 kg (115 lb) SpO2 96% BMI 18.01 kg/m General appearance: Patient is sitting in the wheelchair, she appears a little tired. Slouching over Skin: Skin color, texture, turgor normal, no suspicious rashes or lesions Head: Normocephalic, no masses, lesions, tenderness or abnormalities Eyes: Anicteric sclera. Pupils are equally round and reactive to light. Extraocular movements are intact. Lungs: Lungs clear to auscultation. No wheezing, rhonchi, rales Heart: RRR without murmur, gallop, or rubs. Extremities:lower extremity strength in the thighs and legs are decreased. She is in a wheel chair. ASSESSMENT/PLAN: 1. Ambulatory dysfunction - ICD9: 719.7, ICD10: R26.2 (primary diagnosis) - I think physical therapy would be really helpful for her - [facility] - CONSULT TO PHYSICAL THERAPY 2. Dizziness - ICD9: 780.4, ICD10: R42 -Likely related to the inner ear. - [facility] [employer] - CONSULT TO PHYSICAL THERAPY 3. Frequent falls - ICD9: V15.88, ICD10: R29.6 - [facility] [employer] - CONSULT TO PHYSICAL THERAPY 4. Osteoporosis, unspecified osteoporosis type, unspecified pathological fracture presence - ICD9: 733.00, ICD10: M81.0 - Reviewed the need for Calcium and Vitamin D supplements and weight bearing exercise as tolerated. She is getting vit d and calcium in appropriate amounts. She gets Zolindronic acid infusions every 6 months, gets to zoledronic acid infusions every 6 months. I am not clear why she gets it every 6 months last reviewed that with her. Asked her to review this with her oncologist she has chronic dizziness 5. Insomnia, unspecified type - ICD9: 780.52, ICD10: G47.00 She is getting help for this Rochelle Hackett MD documented in this encounter [facility] 11-08-2024 Note HNO ID: [id number] Author: ROCHELLE HACKETT MD Service: ? Author Type: Physician Type: Progress Notes Filed: 11/10/2024 09:09 Note Text: Reason for Visit Patient presents with: Recheck Rosana Maki is a 84 year old female who presents here today for Above Complaints.. Health Maintenance There are no preventive care reminders to display for this patient. HPI This is a 84-year-old woman with a past medical history of adrenal insufficiency, a flutter, irritable bowel, severe osteoporosis with closed fracture of the lumbar vertebra, anxiety depression, dizziness and giddiness, SIADH, history of breast cancer, esophageal reflux, chronic fatigue syndrome, atrophic vaginitis, anemia and mild cognitive disorder. She was admitted 3-4 times in the past year for different reasons one of them being abnormality of gait and mobility, orthostatic hypotension, polyneuropathy, uti, epistaxis. Breast cancer and osteoporosis:She is now on zometa, was taking prolia, she has stopped the arimidex, will be having a BMD, and mammogram in May . Afib: on eliquis and tikosyn. Bleeding episodes are most bothersome. The last epistaxis needed cautery by Dr Shin. 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 Related to arimidex Anxiety depression: she sees the therapist every other week as the ssri worsen her SIADH. So she is doing well on the therapy. SIADH: followed by Dr. Enciso. On and off she goes into hyponatremia which presents in different ways and she has to be hospitalized most of this times. November 08, 2024 Had a fall in the rest room, 10 days ago. It was in the restroom, she had been throwing up a lot, lost her balance and fell against the bath tub. helped her get off the bathroom floor, went to ER, got saline. She did not complain of back pain so they just sent her home. In a wheel chair today, has severe pain. No new fracture but it flared the old pains and issues. She is getting set up with pain management. She notes she can walk but tends to tip over. Has a walker at home from mother, but may need one customized for her. She has lost around 5 pounds since this and legs are weaker. She has done a lot of Physical Therapy. She does not sleep much due to insomnia, needs CBT, does not have sleep apnea. She is getting medication for osteoporosis , Zometa, every 6 months. She is taking calcium and vitamin d. She is on midodrine for bp and seems that it really helps her. This was started by her health information technician Dr. Cooley No problem-specific Assessment AND Plan notes found for this encounter. Reviewed past medical history PAST SURGICAL HISTORY Procedure Laterality Date CATHETER, [...] Never Smokeless tobacco: Never Vaping Use Vaping status: Never Used Substance Use Topics Alcohol use: Yes Alcohol/week: 1.0 standard drink of alcohol Types: 1 Glasses of Wine (5oz) per week Comment: 1 glass per week Drug use: No Past medical history, appointments, medications, allergies reviewed. Pertinent Lab/Diagnostic Studies are reviewed and discussed today Current Outpatient Medications: traMADol (ULTRAM) 50 mg tablet midodrine (PROAMATINE) 2.5 mg tablet lidocaine (LIDODERM) 5 % tiZANidine (ZANAFLEX) 2 mg tablet zoledronic acid (ZOMETA INTRAVENOUS) esomeprazole (NEXIUM) 40 mg capsule famotidine (PEPCID) 20 mg tablet BENEFIBER, GUAR GUM, ORAL meclizine (ANTIVERT) 25 mg tab fludrocortisone (FLORINEF) 0.1 mg tablet Magnesium Glycinate 120mg 3 at night Stress, blood sugar, thyroid/hormones/adrenals/sleep/ energy/toxins/muscles/constipati on/asthma metoprolol succinate ER (TOPROL XL) 25 mg 24 hr tablet APIXABA (more content not included)... [facility] 11-07-2024 Telephone encounter Note Referral faxed to Dr Mancilla [facility] 11-07-2024 Miscellaneous Notes Referral faxed to Dr Mancilla Patient calling in asking if her information and pain management referral can be faxed over to [facility]. Please review. Vida Urena November 07, 2024 2:34 PM documented in this encounter [facility] 11-07-2024 Telephone encounter Note Patient calling in asking if her information and pain management referral can be faxed over to [facility]. Please review. Vida Urena November 07, 2024 2:34 PM [facility] 11-07-2024 Telephone encounter Note Spoke with pt and information listed below given. Pt verbalizes understanding. Pt has questions and will talk to provider tomorrow 11-08-[address] Devi Lowe LPN [facility] 11-07-2024 Miscellaneous Notes Spoke with pt and information listed below given. Pt verbalizes understanding. Pt has questions and will talk to provider tomorrow 11-08-[address] Devi Lowe LPN Additional TC with no answer. Left VM to return call. LENORA Angel T/C patient, call was lost. Stable compression fracture. She needs to see pain management to see what procedures may be available to help with her pain. Thank you Al Nichole APRN.CNP documented in this encounter [facility] 11-07-2024 Telephone encounter Note Additional TC with no answer. Left VM to return call. LENORA Angel [facility] 11-07-2024 Telephone encounter Note T/C patient, call was lost. [facility] 11-07-2024 Telephone encounter Note Stable compression fracture. She needs to see pain management to see what procedures may be available to help with her pain. Thank you Al Nichole APRN.CNP [facility] 11-04-2024 Telephone encounter Note Prescription sent as requested. She is very sensitive to medication so I prescribed 1/2 a tablet to try. If she tolerates this and it isn't enough, she can try taking a whole tablet. Thank you Al Nichole APRN.CNP [facility] 11-04-2024 Miscellaneous Notes Prescription sent as requested. She is very sensitive to medication so I prescribed 1/2 a tablet to try. If she tolerates this and it isn't enough, she can try taking a whole tablet. Thank you Al Nichole APRN.CNP Patient willing try Tramadol, please send to [facility]. Still waiting on results. We could try tramadol which is low dose dose controlled pain pill but may be too strong for her. Does she want to try this? Take care Al Nichole APRN.CNP Pt checking to see if Al received her xray results. Advised still in process. Pt reports she is having a lot of pain and wants to know what she can do for the pain. Reports she is taking tylenol. Reports lidocaine patches do nothing. Reports muscle relaxers make her feel crazy in the head but does nothing for her pain. Please advise patient. documented in this encounter [facility] 11-04-2024 Telephone encounter Note Patient willing try Tramadol, please send to [facility]. [facility] 11-04-2024 Telephone encounter Note Still waiting on results. We could try tramadol which is low dose dose controlled pain pill but may be too strong for her. Does she want to try this? Take care Al Nichole APRN.CNP [facility] 11-03-2024 Telephone encounter Note Pt checking to see if Al received her xray results. Advised still in process. Pt reports she is having a lot of pain and wants to know what she can do for the pain. Reports she is taking tylenol. Reports lidocaine patches do nothing. Reports muscle relaxers make her feel crazy in the head but does nothing for her pain. Please advise patient. [facility] 11-02-2024 History of Presen t illness Narrative Radiology Service Progress Note PATIENT NAME: Rosana Maki DATE OF SERVICE: November 02, 2024 TIME: 1:40 PM PATIENT IDENTITY VERIFICATION COMPLETED USING TWO (2) IDENTIFIERS: Name and Date of confirmed by patient verbally. FALL SCREENING: Has the patient had 2 falls in the last year or 1 fall with injury or currently using an Ambulatory Assistive Device (Walker, Cane, Wheelchair, Crutches, etc.)? Yes, Patient High Risk for Falls What interventions were put in place to prevent falls during this visit? Offered Assistance with Transfers/Clothing, Instructed Patient to Remain Seated (Not on Exam Table) Until Exam, and Increased Observations by Caregivers PATIENT GENDER DATA: Assigned female at . status: : No status: NO. PATIENT RELEVANT IMPLANT DATA REVIEWED: Not Applicable PATIENT PRESENTS WITH AN IMPLANTABLE OR ATTACHED ROPE TOW OPERATOR: No RADIOLOGY DEPARTMENT: General X-ray: Exam(s) Completed: Spine X-Ray(s): Thoracic and Lumbar AP / LAT / L5-S1 PERIPHERAL IV DATA: Not applicable SIGNED BY: Charlotte Lambert November 02, 2024 1:40 PM documented in this encounter [facility] 11-02-2024 Note HNO ID: [id number] Author: SANTIAGO RICHMOND Tech Service: ? Author Type: Technologist Type: Progress Notes Filed: 11/02/2024 13:41 Note Text: Radiology Service Progress Note PATIENT NAME: Rosana Maki DATE OF SERVICE: November 02, 2024 TIME: 1:40 PM PATIENT IDENTITY VERIFICATION COMPLETED USING TWO (2) IDENTIFIERS: Name and Date of confirmed by patient verbally. FALL SCREENING: Has the patient had 2 falls in the last year or 1 fall with injury or currently using an Ambulatory Assistive Device (Walker, Cane, Wheelchair, Crutches, etc.)? Yes, Patient High Risk for Falls What interventions were put in place to prevent falls during this visit? Offered Assistance with Transfers/Clothing, Instructed Patient to Remain Seated (Not on Exam Table) Until Exam, and Increased Observations by Caregivers PATIENT GENDER DATA: Assigned female at . status: : No status: NO. PATIENT RELEVANT IMPLANT DATA REVIEWED: Not Applicable PATIENT PRESENTS WITH AN IMPLANTABLE OR ATTACHED ROPE TOW OPERATOR: No RADIOLOGY DEPARTMENT: General X-ray: Exam(s) Completed: Spine X-Ray(s): Thoracic and Lumbar AP / LAT / L5-S1 PERIPHERAL IV DATA: Not applicable SIGNED BY: Charlotte Lambert November 02, 2024 1:40 PM [facility] 11-02-2024 Note HNO ID: [id number] Author: AL NICHOLE APRN.FLIGHT FOLLOWER Service: ? Author Type: Nurse Practitioner Type: Progress Notes Filed: 11/02/2024 15:40 Note Text: CC: Patient presents with: Recheck: [facility] ER follow up, fall back pain HPI Rosana Maki is a 84 year old female who presents today for ER follow-up. Facility: [facility] ER Date of visit: 10/30/24 Reason for visit: Got dizzy after sitting after sitting front row at a movie, fell in bathroom had nausea Hospital course: CT brain negative for anything acute, sodium 127, potassium 3.3 - UA negative. 500ml of fluid given, Diagnosis: hypotension and dizziness due to dehydration Discharge: home Current symptoms: Has burning with urination now but thinks it is due to difficulty of straight cath by ER staff - states it took multiple attempts to get cath sample, dark urine, and is fatigued.Has a constant aching pain to her lower spine that is worsening with sitting up and getting up and then will spasm. Tylenol helps some but does not fully stops pain. Has history of urinary leakage and thinks she might be leaking more. Also with history of vertebral compression fracture and worried she might have another one. No spinal xrays completed in ER. Did have possible kidney stone and treated for UTI over a month ago. Denies abdominal pain, weakness, loss of bowel control, numbness, nausea, diarrhea, further falls, constipation, cough, wheezing, shortness of breath, chest pain, Dizziness has resolved. REVIEW OF SYSTEMS See HPI PAST MEDICAL HISTORY Diagnosis Date Abnormality of [...] Prevacid [Lansoprazole], and Sulfa (Sulfonamide Antibiotics) MEDICATIONS midodrine (PROAMATINE) 2.5 mg tablet Take 2.5 mg by mouth two times a day. zoledronic acid (ZOMETA INTRAVENOUS) Inject intravenously. Every 6 months esomeprazole (NEXIUM) 40 mg capsule Take 1 capsule by mouth daily before breakfast. 1/2 hr before meal. famotidine (PEPCID) 20 mg tablet take 1 [...] 120mg 3 at night Stress, blood sugar, thyroid/hormones/adrenals/sleep/ energy/toxins/muscles/constipati on/asthma Work up to 3 capsules with meals at night - can cause loose stools metoprolol succ (more content not included)... [facility] 11-02-2024 History of Presen t illness Narrative CC: Patient presents with: Recheck: [facility] ER follow up, fall back pain HPI Rosana Maki is a 84 year old female who presents today for ER follow-up. Facility: [facility] ER Date of visit: 2/16/25 Reason for visit: Got dizzy after sitting after sitting front row at a movie, fell in bathroom had nausea Hospital course: CT brain negative for anything acute, sodium 127, potassium 3.3 - UA negative. 500ml of fluid given, Diagnosis: hypotension and dizziness due to dehydration Discharge: home Current symptoms: Has burning with urination now but thinks it is due to difficulty of straight cath by ER staff - states it took multiple attempts to get cath sample, dark urine, and is fatigued.Has a constant aching pain to her lower spine that is worsening with sitting up and getting up and then will spasm. Tylenol helps some but does not fully stops pain. Has history of urinary leakage and thinks she might be leaking more. Also with history of vertebral compression fracture and worried she might have another one. No spinal xrays completed in ER. Did have possible kidney stone and treated for UTI over a month ago. Denies abdominal pain, weakness, loss of bowel control, numbness, nausea, diarrhea, further falls, constipation, cough, wheezing, shortness of breath, chest pain, Dizziness has resolved. REVIEW OF SYSTEMS See HPI PAST MEDICAL HISTORY Diagnosis Date Abnormality of [...] Prevacid [Lansoprazole], and Sulfa (Sulfonamide Antibiotics) MEDICATIONS midodrine (PROAMATINE) 2.5 mg tablet Take 2.5 mg by mouth two times a day. zoledronic acid (ZOMETA INTRAVENOUS) Inject intravenously. Every 6 months esomeprazole (NEXIUM) 40 mg capsule Take 1 capsule by mouth daily before breakfast. 1/2 hr before meal. famotidine (PEPCID) 20 mg tablet take 1 [...] 120mg 3 at night Stress, blood sugar, thyroid/hormones/adrenals/sleep/ energy/toxins/muscles/constipati on/asthma Work up to 3 capsules with meals at night - can cause loose stools metoprolol succinate ER (TOPROL XL) 25 mg 24 hr tablet Take half tablet in the morning and 1 tablet in the evening. APIXABAN (ELIQUIS ORAL) Take by mouth twice [...] Never Smokeless tobacco: Never Vaping Use Vaping status: Never Used Substance Use Topics Alcohol use: Yes Alcohol/week: 1.0 standard drink of alcohol Types: 1 Glasses of Wine (5oz) per week Comment: 1 glass per week Drug use: No PHYSICAL EXAM BP 128/70 Pulse 60 Resp 16 Wt 54.4 kg (120 lb) SpO2 98% BMI 18.79 kg/m General Appearance: well appearing, in no acute distress, alert Eyes: conjunctiva pink and moist, no icterus, sclera white, non-injected Back: Reflexes 2+ and symmetric spinal tenderness to lower thoracic and upper lumbar spine, no deformity noted. Also tender to paraspinal muscles. Pain with all ROM so not completed. Able to stand up from chair and get on table but painful. Too painful to sit up from lying so rolled to side and sat up from that position. Sensation intact, strength equal bilaterally to lower ext at 5/5 Lungs: Lungs clear to auscultation. No wheezing, rhonchi, rales. Heart: RRR without murmur, gallop, or rubs. No ectopy Abdomen: Abdomen soft, negative CVA tenderness Bowel sounds normal. No masses, organomegaly, tenderness with grimacing to lower abdomen. No guarding, rigidity, or rebound pain. Influenza Vaccine(1) due on 05/15/2024 Advance Directive Discussion due on 09/14/2024 Covid-19 Vaccine( season) due on 11/21/2024 Diabetes Screening due on 04/12/2027 DTaP,Tdap,Td Vaccine(3 - Td or Tdap) due on 06/30/2032 Bone Density Screening Completed RSV Vaccine Completed Shingrix Vaccine Completed Pneumococcal Vaccine: 50+ Completed Colorectal Cancer Screening Discontinued DATA REVIEWED: Outside chart from [facility] reviewed. ASSESSMENT/PLAN: 1. Fall, subsequent encounter - ICD9: V58.89, E888.9, ICD10: W19.XXXD (primary diagnosis) With the tenderness and pain, possible compression fracture, needs xrayed - XR THORACIC GENERAL 3V AP/LAT/SWIMMERS - XR LUMBAR GENERAL 3V AP/LAT/L5-S1 2. Acute midline back pain, unspecified back location - ICD9: 724.5, ICD10: M54.9 As above Tylenol as discussed Tizanidine as ordered - XR THORACIC GENERAL 3V AP/LAT/SWIMMERS - XR LUMBAR GENERAL 3V AP/LAT/L5-S1 - LIDOCAINE 5 % TOPICAL PATCH 3. Dysuria - ICD9: 788.1, ICD10: R30.0 UTI indicated Macrobid as ordered - will change if indicated by culture - UA DIP, URINE (POC) - URINALYSIS, WITH MICROSCOPIC - BACTERIAL CULTURE, URINE 4. Hyponatremia - ICD9: 276.1, ICD10: E87.1 Needs rechecked - BASIC METABOLIC PANEL 5. Hypokalemia - ICD9: 276.8, ICD10: E87.6 Needs rechecked - BASIC METABOLIC PANEL Prescription instructions reviewed with patient as applicable. Potential red flag symptoms discussed with the patient. Reviewed appropriate action plan to take if red flag symptoms occur. Patient agreeable to treatment plan. Al Nichole APRN.CNP documented in this encounter [facility] 11-01-2024 Note HNO ID: [id number] Author: ANAYELI PETTIT RN Service: ? Author Type: Registered Nurse Type: Progress Notes Filed: 11/01/2024 12:03 Note Text: CDM Care Path Telephonic Outreach Provider Action/FYI Patient identified by Name and Date of . Discussed care with patient. Patient has been sick. States she was sitting too close to the screen at the movie theater and she became sick and vomited. States she has a history of this. Usually takes a while for her to recover. Sounds like she maybe was a bit dehydrated because she reports weakness and a fall. Spouse took her to [facility] ED. They did a CT scan due to veing on eliquis and it was good. She is just sore now and trying to drink fluids. Tylenol helps her aches. Program Details Chronic Disease Management Status: Enrolled Effective Dates: 10/17/2024 - present Responsible Staff: Anayeli Pettit RN Support and Services: High Risk Program Goals Targets Target Due Completed Completed By Outcome Annual Medicare Wellness visit addressed 01/16/2025 -- -- -- Patient-stated goal addressed (add comment) 01/16/2025 -- -- -- Biannual PCP visit addressed 01/16/2025 11/01/2024 Anayeli Pettit RN Complete/Scheduled General education provided (managing stress, where to go/how to contact, etc.) 11/14/2024 10/17/2024 Anayeli Pettit RN Complete Has a therapist outside [facility] Intake assessments completed: ADLs, Fall Risk, SDOH 11/14/2024 10/17/2024 Anayeli Pettit RN Complete Assessments CDM Assessment Medications: Do you need any medication refills at this time, including any of the medication you might take only when needed?: No Symptoms: Are you experiencing any new or worsening symptoms that you need to talk about today?: No ADLs No documentation this encounter Fall Risk No documentation this encounter SDOH No documentation this encounter Interventions The following were addressed during this visit: - Biannual PCP visit addressed - Schedule Biannual PCP Appointment - Bi-Weekly Outreach (Recurring) Disposition Based on tafe lecturer, the following disposition is advised: No action needed Anayeli Pettit RN November 01, 2024 11:56 AM [facility] 11-01-2024 History of Presen t illness Narrative Images from the original note were not included. CDM Care Path Telephonic Outreach Provider Action/FYI Patient identified by Name and Date of . Discussed care with patient. Patient has been sick. States she was sitting too close to the screen at the movie theater and she became sick and vomited. States she has a history of this. Usually takes a while for her to recover. Sounds like she maybe was a bit dehydrated because she reports weakness and a fall. Spouse took her to [place] ED. They did a CT scan due to veing on eliquis and it was good. She is just sore now and trying to drink fluids. Tylenol helps her aches. Program Details Chronic Disease Management Status: Enrolled Effective Dates: 10/17/2024 - present Responsible Staff: Anayeli Pettit RN Support and Services: High Risk Program Goals Targets Target Due Completed Completed By Outcome Annual Medicare Wellness visit addressed 01/16/2025 -- -- -- Patient-stated goal addressed (add comment) 01/16/2025 -- -- -- Biannual PCP visit addressed 01/16/2025 11/01/2024 Anayeli Pettit RN Complete/Scheduled General education provided (managing stress, where to go/how to contact, etc.) 11/14/2024 10/17/2024 Anayeli Pettit RN Complete Has a therapist outside [facility] Intake assessments completed: ADLs, Fall Risk, SDOH 11/14/2024 10/17/2024 Anayeli Pettit RN Complete Assessments CD Assessment Medications: Do you need any medication refills at this time, including any of the medication you might take only when needed?: No Symptoms: Are you experiencing any new or worsening symptoms that you need to talk about today?: No ADLs No documentation this encounter Fall Risk No documentation this encounter SDOH No documentation this encounter Interventions The following were addressed during this visit: - Biannual PCP visit addressed - Schedule Biannual PCP Appointment - Bi-Weekly Outreach (Recurring) Disposition Based on tafe lecturer, the following disposition is advised: No action needed Anayeli Pettit RN November 01, 2024 11:56 AM documented in this encounter [facility] 11-01-2024 Note Patient Outreach ([facility] ROSANA MAKI ([id number]) 1940 F NFR Date Time Provider Department 11/01/24 ANAYELI PETTIT During your visit today, we recorded the following information about you: Anayeli Pettit RN 11/01/2024 12:03 PM Signed CDM Care Path Telephonic Outreach Provider Action/ Patient identified by Name and Date of . Discussed care with patient. Patient has been sick. States she was sitting too close to the screen at the movie theater and she became sick and vomited. States she has a history of this. Usually takes a while for her to recover. Sounds like she maybe was a bit dehydrated because she reports weakness and a fall. Spouse took her to [facility] ED. They did a CT scan due to veing on eliquis and it was good. She is just sore now and trying to drink fluids. Tylenol helps her aches. Program Details Chronic Disease Management Status: Enrolled Effective Dates: 10/17/2024 - present Responsible Staff: Anayeli Pettit RN Support and Services: High Risk Program Goals Targets Target Due Completed Completed By Outcome Annual Medicare Wellness visit addressed 01/16/2025 -- -- -- Patient-stated goal addressed (add comment) 01/16/2025 -- -- -- Biannual PCP visit addressed 01/16/2025 11/01/2024 Anayeli Pettit RN Complete/Scheduled General education provided (managing stress, where to go/how to contact, etc.) 11/14/2024 10/17/2024 Anayeli Pettit RN Complete Has a therapist outside [facility] Intake assessments completed: ADLs, Fall Risk, SDOH 11/14/2024 10/17/2024 Anayeli Pettit RN Complete Assessments CDM Assessment Medications: Do you need any medication refills at this time, including any of the medication you might take only when needed?: No Symptoms: Are you experiencing any new or worsening symptoms that you need to talk about today?: No ADLs No documentation this encounter Fall Risk No documentation this encounter SDOH No documentation this encounter Interventions The following were addressed during this visit: - Biannual PCP visit addressed - Schedule Biannual PCP Appointment - Bi-Weekly Outreach (Recurring) Disposition Based on tafe lecturer, the following disposition is advised: No action needed Anayeli Pettit RN November 01, 2024 11:56 AM Allergies As of Date: 11/01/2024 Noted Allergy Reaction ADHESIVE TAPE (ROSINS) 11/11/2013 2 - Rash CANTALOUPE 08/12/2005 ERYTHROMYCIN 08/12/2005 8 - GI Upset GEMTESA (VIBEGRON) 07/09/2023 6 - Diarrhea GRASS POLLEN 08/13/2005 MOLD 08/13/2005 PENICILLINS 08/12/2005 2 - Rash 7 - Swelling POLLEN 08/13/2005 PREVACID (LANSOPRAZOLE) 05/02/2014 6 - Diarrhea Comments: All PPIs tried have given her diarrhea. SULFA (SULFONAMIDE ANTIBIOTICS) 08/12/2005 Comments: Pt uncertain if Sulfa allergy is accurate or not. Date Reviewed: 06/28/2024 Reviewed by: Devi Shaver MA - Fully Assessed Prescriptions as of 11/01/2024 - zoledronic acid (ZOMETA INTRAVENOUS) Inject intravenously. Every 6 months - esomeprazole (NEXIUM) 40 mg capsule Take 1 capsule by mouth daily before breakfast. 1/2 hr before meal. - famotidine (PEPCID) 20 mg tablet take 1 tablet by mouth at bedtime if needed - BENEFIBER, GUAR GUM, ORAL Take 2 teaspoonsful by mouth two times a day as needed. - meclizine (ANTIVERT) 25 mg tab Take 1 tablet by mouth every 6 hours as needed (dizziness). - fludrocortisone (FLORINEF) 0.1 mg tablet Taking 3 times a week - Magnesium Glycinate 120mg 3 at night Stress, blood sugar, thyroid/hormones/adrenals/sleep/ energy/toxins/muscles/constipati on/asthma Work up to 3 capsules with meals at night - can cause loose stools - metoprolol succinate ER (TOPROL XL) 25 mg 24 hr tablet Take half tablet in the morning and 1 tablet in the evening. - APIXABAN (ELIQUIS ORAL) Take by mouth [...] once daily. Problem List As Of Date 11/01/2024 Noted Resolved Irritable Bowel Syndrome [K58.9] OSTEOPENIA [M89.9, M94.9] 07/04/2009 Esophageal reflux [K21.9] Other forms of migraine [346.8] 05/04/2007 Unspecified constipation [K59.00] Asymptomatic Postmenopausal Status (Age-Related* 10/28/2012 Osteoarth NOS-L/Leg [[id number]] Palpitations [R00.2] 02/23/2009 Osteoporosis [M81.0] 07/04/2009 03/13/2012 Insomnia [G47.00] 02/11/2011 Hyponatremia [E87.1] 02/11/2011 Chronic fatigue disorder [G93.32] 02/11/2011 Paroxysmal atrial fibrillation (HCC) [I48.0] Mitral valve prolapse [I34.1] Closed fracture of lumbar vertebra (HCC) [S32.0*10/18/2012 Dizziness and giddiness [R42] 06/ (more content not included)... [facility] 10-17-2024 Note HNO ID: [id number] Author: ANAYELI PETTIT RN Service: ? Author Type: Registered Nurse Type: Progress Notes Filed: 10/17/2024 14:05 Note Text: CDM ENROLLMENT Provider Action / FYI: Patient identified by name and date of . Discussed care with patient. Program Details Chronic Disease Management Status: Enrolled Effective Dates: 10/17/2024 - present Responsible Staff: Anayeli Pettit RN Support and Services: High Risk Assessments CDM Assessment Medications: Do you have any questions about taking your medications or which medications you should be taking?: No Do you need any medication refills at this time, including any of the medication you might take only when needed?: No Social: It can be normal to feel anxious or down during a time like this. Would you like to talk to a mental health professional about how you have been feeling?: No Symptoms: Are you experiencing any new or worsening symptoms that you need to talk about today?: No ADLs Patients can perform the following activities without help: Dressing: Yes Bathing: Yes Doing laundry: Yes Climbing a flight of stairs: Yes Walking briskly: No Instrumental activities of daily living Do you drive a car?: Yes Do you need help from others to take care of things inside the house, for example: laundry, house cleaning, preparing meals?: No Do you need help from others with errands outside the house, for example: shopping for groceries or clothes, going medical appointments?: No Fall Risk One or more falls in the last year:: No Any near falls in the last year?: Yes Advised to use a cane or walker to get around safely:: No Feels unsteady when walking:: Yes Steadies self on furniture while walking at home:: No Worried about falling:: Yes Needs to push with hands when rising from a chair:: Yes Has trouble stepping up onto a curb:: No Often has to nixon to the toilet:: No Has lost some feeling in feet:: Yes Takes medicine that makes him/her feel lightheaded or more tired than usual:: No Takes medicine to sleep or improve mood:: No Fall risk factors:: Incontinence SDOH Housing Stability In the last 12 months, was there a time when you were not able to pay the mortgage or rent on time?: No Transportation Needs In the past 12 months, has lack of transportation kept you from medical appointments or from getting medications?: No In the past 12 months, has lack of transportation kept you from meetings, work, or from getting things needed for daily living?: No Food Insecurity Within the past 12 months, you worried that your food would run out before you got the money to buy more.: Never true Within the past 12 months, the food you bought just didn't last and you didn't have money to get more.: Never true Tobacco Use Patient reports that she has never smoked. She has never used smokeless tobacco. Interventions The following were addressed during this visit: - Initial enrollment outreach - Intake assessments completed: ADLs, Fall Risk, SDOH - General education provided (managing stress, where to go/how to contact, etc.) - Month 1: Provide General Education: Managing Stress AND Anxiety - Month 1: Provide General Education: Where to Go for Care - Month 1: Provide General Education: How to Contact Your Physician Team Disposition Based on tafe lecturer, the following disposition is advised: No action needed Anayeli Pettit RN October 17, 2024 1:52 PM [facility] 10-17-2024 History of Presen t illness Narrative CDM ENROLLMENT Provider Action / FYI: Patient identified by name and date of . Discussed care with patient. Program Details Chronic Disease Management Status: Enrolled Effective Dates: 10/17/2024 - present Responsible Staff: Anayeli Pettit RN Support and Services: High Risk Assessments CDM Assessment Medications: Do you have any questions about taking your medications or which medications you should be taking?: No Do you need any medication refills at this time, including any of the medication you might take only when needed?: No Social: It can be normal to feel anxious or down during a time like this. Would you like to talk to a mental health professional about how you have been feeling?: No Symptoms: Are you experiencing any new or worsening symptoms that you need to talk about today?: No ADLs Patients can perform the following activities without help: Dressing: Yes Bathing: Yes Doing laundry: Yes Climbing a flight of stairs: Yes Walking briskly: No Instrumental activities of daily living Do you drive a car?: Yes Do you need help from others to take care of things inside the house, for example: laundry, house cleaning, preparing meals?: No Do you need help from others with errands outside the house, for example: shopping for groceries or clothes, going medical appointments?: No Fall Risk One or more falls in the last year:: No Any near falls in the last year?: Yes Advised to use a cane or walker to get around safely:: No Feels unsteady when walking:: Yes Steadies self on furniture while walking at home:: No Worried about falling:: Yes Needs to push with hands when rising from a chair:: Yes Has trouble stepping up onto a curb:: No Often has to nixon to the toilet:: No Has lost some feeling in feet:: Yes Takes medicine that makes him/her feel lightheaded or more tired than usual:: No Takes medicine to sleep or improve mood:: No Fall risk factors:: Incontinence SDOH Housing Stability In the last 12 months, was there a time when you were not able to pay the mortgage or rent on time?: No Transportation Needs In the past 12 months, has lack of transportation kept you from medical appointments or from getting medications?: No In the past 12 months, has lack of transportation kept you from meetings, work, or from getting things needed for daily living?: No Food Insecurity Within the past 12 months, you worried that your food would run out before you got the money to buy more.: Never true Within the past 12 months, the food you bought just didn't last and you didn't have money to get more.: Never true Tobacco Use Patient reports that she has never smoked. She has never used smokeless tobacco. Interventions The following were addressed during this visit: - Initial enrollment outreach - Intake assessments completed: ADLs, Fall Risk, SDOH - General education provided (managing stress, where to go/how to contact, etc.) - Month 1: Provide General Education: Managing Stress & Anxiety - Month 1: Provide General Education: Where to Go for Care - Month 1: Provide General Education: How to Contact Your Physician Team Disposition Based on tafe lecturer, the following disposition is advised: No action needed Anayeli Pettit RN October 17, 2024 1:52 PM documented in this encounter [facility] 10-17-2024 Note Patient Outreach ([facility] ROSANA MAKI ([id number]) 1940 F NFR Date Time Provider Department 10/17/24 ANAYELI PETTIT During your visit today, we recorded the following information about you: Anayeli Pettit RN 10/17/2024 2:05 PM Signed CDM ENROLLMENT Provider Action / FYI: Patient identified by name and date of . Discussed care with patient. Program Details Chronic Disease Management Status: Enrolled Effective Dates: 10/17/2024 - present Responsible Staff: Anayeli Pettit RN Support and Services: High Risk Assessments CDM Assessment Medications: Do you have any questions about taking your medications or which medications you should be taking?: No Do you need any medication refills at this time, including any of the medication you might take only when needed?: No Social: It can be normal to feel anxious or down during a time like this. Would you like to talk to a mental health professional about how you have been feeling?: No Symptoms: Are you experiencing any new or worsening symptoms that you need to talk about today?: No ADLs Patients can perform the following activities without help: Dressing: Yes Bathing: Yes Doing laundry: Yes Climbing a flight of stairs: Yes Walking briskly: No Instrumental activities of daily living Do you drive a car?: Yes Do you need help from others to take care of things inside the house, for example: laundry, house cleaning, preparing meals?: No Do you need help from others with errands outside the house, for example: shopping for groceries or clothes, going medical appointments?: No Fall Risk One or more falls in the last year:: No Any near falls in the last year?: Yes Advised to use a cane or walker to get around safely:: No Feels unsteady when walking:: Yes Steadies self on furniture while walking at home:: No Worried about falling:: Yes Needs to push with hands when rising from a chair:: Yes Has trouble stepping up onto a curb:: No Often has to nixon to the toilet:: No Has lost some feeling in feet:: Yes Takes medicine that makes him/her feel lightheaded or more tired than usual:: No Takes medicine to sleep or improve mood:: No Fall risk factors:: Incontinence SDOH Housing Stability In the last 12 months, was there a time when you were not able to pay the mortgage or rent on time?: No Transportation Needs In the past 12 months, has lack of transportation kept you from medical appointments or from getting medications?: No In the past 12 months, has lack of transportation kept you from meetings, work, or from getting things needed for daily living?: No Food Insecurity Within the past 12 months, you worried that your food would run out before you got the money to buy more.: Never true Within the past 12 months, the food you bought just didn't last and you didn't have money to get more.: Never true Tobacco Use Patient reports that she has never smoked. She has never used smokeless tobacco. Interventions The following were addressed during this visit: - Initial enrollment outreach - Intake assessments completed: ADLs, Fall Risk, SDOH - General education provided (managing stress, where to go/how to contact, etc.) - Month 1: Provide General Education: Managing Stress AND Anxiety - Month 1: Provide General Education: Where to Go for Care - Month 1: Provide General Education: How to Contact Your Physician Team Disposition Based on tafe lecturer, the following disposition is advised: No action needed Anayeli Pettit RN October 17, 2024 1:52 PM Allergies As of Date: 10/17/2024 Noted Allergy Reaction ADHESIVE TAPE (ROSINS) 11/11/2013 2 - Rash CANTALOUPE 08/12/2005 ERYTHROMYCIN 08/12/2005 8 - GI Upset GEMTESA (VIBEGRON) 07/09/2023 6 - Diarrhea GRASS POLLEN 08/13/2005 MOLD 08/13/2005 PENICILLINS 08/12/2005 2 - Rash 7 - Swelling POLLEN 08/13/2005 PREVACID (LANSOPRAZOLE) 05/02/2014 6 - Diarrhea Comments: All PPIs tried have given her diarrhea. SULFA (SULFONAMIDE ANTIBIOTICS) 08/12/2005 Comments: Pt uncertain if Sulfa allergy is accurate or not. Date Reviewed: 06/28/2024 Reviewed by: Devi Shaver MA - Fully Assessed Prescriptions as of 10/17/2024 - zoledronic acid (ZOMETA INTRAVENOUS) Inject intravenously. Every 6 months - esomeprazole (NEXIUM) 40 mg capsule Take 1 capsule by mouth daily before breakfast. 1/2 hr before meal. - famotidine (PEPCID) 20 mg tablet take 1 tablet by mouth at bedtime if needed - BENEFIBER, GUAR GUM, ORAL Take 2 teaspoonsful by mouth two times a day as needed. - meclizine (ANTIVERT) 25 mg tab Take 1 tablet by mouth every 6 hours as needed (dizziness). - fludrocortisone (FLORINEF) 0.1 mg tablet Taking 3 times a week - Magnesium Glycinate 120mg 3 at night Stress, blood sugar, thyroid/hormones/adrenals/sleep/ energy/toxins/muscles/constipati on/asthma (more content not included)... [facility] 10-11-2024 Note HNO ID: [id number] Author: DIPIKA MOHR MA Service: ? Author Type: Inserting Operator Type: Progress Notes Filed: 10/11/2024 12:59 Note Text: POPULATION HEALTH NAVIGATION OUTREACH Action/FYI Patient returned call and follow up scheduled. Patient states she had flu shot elsewhere. Reason for Outreach Returned Call/MyChart Patient Contacted: Spoke to patient/parent/or legal guardian Patient identified by name and date of : Yes Returned call/MyChart actions taken: Patient scheduled/pended orders: Follow-up Appointment 11/08/2024 in [facility] with ROCHELLE HACKETT - Follow up, Address and close HCC gaps Navigation Signature: Dipika Mohr MA October 11, 2024 12:58 PM [facility] 10-11-2024 History of Presen t illness Narrative POPULATION HEALTH NAVIGATION OUTREACH Action/FYI Patient returned call and follow up scheduled. Patient states she had flu shot elsewhere. Reason for Outreach Returned Call/MyChart Patient Contacted: Spoke to patient/parent/or legal guardian Patient identified by name and date of : Yes Returned call/MyChart actions taken: Patient scheduled/pended orders: Follow-up Appointment 11/08/2024 in [facility] with ROCHELLE HACKETT - Follow up, Address and close HCC gaps Navigation Signature: Dipika Mohr MA October 11, 2024 12:58 PM POPULATION HEALTH NAVIGATION OUTREACH Action/FYI Contacted patient to schedule HCC care gaps and health maintenance. 1st attempt: Left message with my direct number 2nd attempt: My Chart message sent Topic Due (Y or N) Comments PCP Follow up Y Colorectal Cancer Screening N A1C N HTN/Controlling BP N Flu Y HCC Y Reason for Outreach Care Gap/HCC or Scheduling Wellness Visits Care Gaps due: Follow Up Appointment Flu Vaccine Patient Contacted: Unable or unnecessary to reach patient: Left message [employer] message sent HCC related Navigation Signature: Dipika Mohr MA October 11, 2024 9:47 AM documented in this encounter [facility] 10-11-2024 Note HNO ID: [id number] Author: DIPIKA MOHR MA Service: ? Author Type: Inserting Operator Type: Progress Notes Filed: 10/11/2024 09:47 Note Text: POPULATION HEALTH NAVIGATION OUTREACH Action/FYI Contacted patient to schedule HCC care gaps and health maintenance. 1st attempt: Left message with my direct number 2nd attempt: My Chart message sent Topic Due (Y or N) Comments PCP Follow up Y Colorectal Cancer Screening N A1C N HTN/Controlling BP N Flu Y HCC Y Reason for Outreach Care Gap/HCC or Scheduling Wellness Visits Care Gaps due: Follow Up Appointment Flu Vaccine Patient Contacted: Unable or unnecessary to reach patient: Left message [employer] message sent HCC related Navigation Signature: Dipika Mohr MA October 11, 2024 9:47 AM [facility] 10-11-2024 Note Patient Outreach (NE TNAV) ROSANA MAKI ([id number]) 1940 F NFR Date Time Provider Department 10/11/24 DIPIKA MOHR NETANGELV During your visit today, we recorded the following information about you: Dipika Mohr MA 10/11/2024 9:47 AM Signed POPULATION HEALTH NAVIGATION OUTREACH Action/FYI Contacted patient to schedule HCC care gaps and health maintenance. 1st attempt: Left message with my direct number 2nd attempt: My Chart message sent Topic Due (Y or N) Comments PCP Follow up Y Colorectal Cancer Screening N A1C N HTN/Controlling BP N Flu Y HCC Y Reason for Outreach Care Gap/HCC or Scheduling Wellness Visits Care Gaps due: Follow Up Appointment Flu Vaccine Patient Contacted: Unable or unnecessary to reach patient: Left message MyChart message sent HCC related Navigation Signature: Dipika Mohr MA October 11, 2024 9:47 AM Dipika Mohr MA 10/11/2024 12:59 PM Signed POPULATION HEALTH NAVIGATION OUTREACH Action/FYI Patient returned call and follow up scheduled. Patient states she had flu shot elsewhere. Reason for Outreach Returned Call/MyChart Patient Contacted: Spoke to patient/parent/or legal guardian Patient identified by name and date of : Yes Returned call/MyChart actions taken: Patient scheduled/pended orders: Follow-up Appointment 11/08/2024 in [facility] with ROCHELLE HACKETT - Follow up, Address and close HCC gaps Navigation Signature: Dipika Mohr MA October 11, 2024 12:58 PM Allergies As of Date: 10/11/2024 Noted Allergy Reaction ADHESIVE TAPE (ROSINS) 11/11/2013 2 - Rash CANTALOUPE 08/12/2005 ERYTHROMYCIN 08/12/2005 8 - GI Upset GEMTESA (VIBEGRON) 07/09/2023 6 - Diarrhea GRASS POLLEN 08/13/2005 MOLD 08/13/2005 PENICILLINS 08/12/2005 2 - Rash 7 - Swelling POLLEN 08/13/2005 PREVACID (LANSOPRAZOLE) 05/02/2014 6 - Diarrhea Comments: All PPIs tried have given her diarrhea. SULFA (SULFONAMIDE ANTIBIOTICS) 08/12/2005 Comments: Pt uncertain if Sulfa allergy is accurate or not. Date Reviewed: 06/28/2024 Reviewed by: Devi Shaver MA - Fully Assessed Reason for Visit: Population Health Navigation Outreach [3910] Cmt: Mally/Workbench/ACO Prescriptions as of 10/11/2024 - zoledronic acid (ZOMETA INTRAVENOUS) Inject intravenously. Every 6 months - esomeprazole (NEXIUM) 40 mg capsule Take 1 capsule by mouth daily before breakfast. 1/2 hr before meal. - famotidine (PEPCID) 20 mg tablet take 1 tablet by mouth at bedtime if needed - BENEFIBER, GUAR GUM, ORAL Take 2 teaspoonsful by mouth two times a day as needed. - meclizine (ANTIVERT) 25 mg tab Take 1 tablet by mouth every 6 hours as needed (dizziness). - fludrocortisone (FLORINEF) 0.1 mg tablet Taking 3 times a week - Magnesium Glycinate 120mg 3 at night Stress, blood sugar, thyroid/hormones/adrenals/sleep/ energy/toxins/muscles/constipati on/asthma Work up to 3 capsules with meals at night - can cause loose stools - metoprolol succinate ER (TOPROL XL) 25 mg 24 hr tablet Take half tablet in the morning and 1 tablet in the evening. - APIXABAN (ELIQUIS ORAL) Take by mouth [...] once daily. Problem List As Of Date 10/11/2024 Noted Resolved Irritable Bowel Syndrome [K58.9] OSTEOPENIA [M89.9, M94.9] 07/04/2009 Esophageal reflux [K21.9] Other forms of migraine [346.8] 05/04/2007 Unspecified constipation [K59.00] Asymptomatic Postmenopausal Status (Age-Related* 10/28/2012 Osteoarth NOS-L/Leg [SMH7738] Palpitations [R00.2] 02/23/2009 Osteoporosis [M81.0] 07/04/2009 03/13/2012 Insomnia [G47.00] 02/11/2011 Hyponatremia [E87.1] 02/11/2011 Chronic fatigue disorder [G93.32] 02/11/2011 Paroxysmal atrial fibrillation (HCC) [I48.0] Mitral valve prolapse [I34.1] Closed fracture of lumbar vertebra (HCC) [S32.0*10/18/2012 Dizziness and giddiness [R42] 03/08/2013 Pain in joint, lower leg [M25.569] 04/27/2014 Right-sided low back pain with right-sided scia*07/24/2015 Neck pain [M54.2] 08/16/2015 Major depressive disorder, recurrent, in partia*12/20/2015 Osteopenia [M85.80] 12/20/2015 Chronic right shoulder pain [M25.511, G89.29] 11/11/2016 Anxiety and depression [F41.9, F32.A] 02/05/2017 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 [facility] 09-29-2024 History of Presen t illness Narrative I contacted patient on 09/28/2024 4:47 PM. Answers were put into visit during pre-charting. Will the patient be in the [facility] at the time of the telehealth visit? Yes If no, notify your marketing services manager & clinical marketing services manager of potential issue Confirm mode for the visit is [place] Video visit: [employer] - confirm patients knows to login 15 min in advance. Yes I entered/confirmed pharmacy and updated on chart. Yes I reviewed allergies and marked reviewed on chart: Yes I reviewed tobacco use and updated on chart: Yes I reviewed medications and asked patient to have them available at time of visit. Additional medications not in med list added to list. Medications patient no longer taking removed from list. Yes Any refills needed (if yes, please queue up)? No I asked for any home vitals listed in the visit notes such as weight, blood pressure, etc and entered them into vitals. If patient is on Oxygen I documented their most recent oxygen level in the SpO2 field.Yes Informed patient that if they do not receive link for their video visit within 15 minutes of scheduled appointment time, to contact that office directly to see if clinic is running late? Yes Sleep Patients Only I completed the flowsheets for the [place] Sleepines Scale and FOSQ. Pt completed I have had the pleasure of seeing Ms. Rosana Maki for evaluation at the [facility] clinic today. . Impression: Sleepiness ? due to sleep apnea. Her prior PSG was limited by the decreased sleep efficiency of 52% and decreased REM sleep. Her EDS started about 5-10 years ago.. History of atria fibrillation- on Apixaban No evidence of parasomnia: the sleep history was thoroughly reviewed. No indication of any unusual behavior during sleep that requires intervention. No evidence of restless legs.. Sleep hours: adequate Driving Issues: none Plan: Diagnostic sleep study. The study will be done at [facility]. We discussed treatment options and she is willing to consider CPAP treatment. If the study is positive for obstructive sleep apnea, we will therefore proceed with CPAP therapy. We discussed good sleep hygiene habits. She should never drive if drowsy and should chute puller at a safe place if she becomes drowsy while driving. A handout on drowsy driving tips was given to the patient. Follow up in clinic after the sleep studies. At that time we will discuss her study results and tolerance of therapy if indicated. HPI: Subjective Chief complaint: hypersomnia. Previous sleep study: Yes Positive airway pressure (PAP) device use: No PSG at [facility]: [facility] [place] [address] ; PSG Study Report Name: ROSANA MAKI Date of Study: 07/13/2024 CC#: [id number] Age: 84 (: 1940) ESS: 09/06 Neck Circ. (cm): 30.0 Height (cm): 170.2 Weight (kg): 53.6 BMI: 18.5 Referring Provider: ROCHELLE HACKETT Mailcode: [id number] Sleep history: The patient is a 84 year old female with a history of snoring, waking up choking, gasping, or snorting, waking up with dry mouth or sore throat, excessive daytime sleepiness, fatigue, daytime napping, feeling paralyzed while falling asleep or waking up, nightmares, and dreams of being chased. The patient is being evaluated for obstructive sleep apnea.The patient endorses being a habitual prone sleeper. Pertinent past medical history: Allergic rhinitis, Anxiety, Atrial fibrillation, Depression, GERD, Insomnia, Migraine headaches, Breast cancer Medications: Eliquis, Tikosyn, Nexium, Pepcid, Florinef Sleep procedure: PSG 4 or more [facility] ([id number]) Procedure: The study was attended continuously by a engineering technologist. The monitored parameters included: left (E1-M2) and right (E2-M1) EOG, frontal (F3-M2 & F4-M1), central (C3-M2 & C4-M1) and occipital (O1-M2 & O2-M1) EEG, mental and submental EMG, left and right anterior tibialis, single ECG waveform, snoring, continuous airflow with thermistor, nasal pressure transducer, chest and abdominal effort, oxygen saturation, ETCO2, and body position via video monitoring. Hypopnea definition: The peak signal excursions drop by >= 30% of pre-event baseline using nasal pressure (diagnostic study), PAP device flow (titration study) or an alternative hypopnea sensor (diagnostic study). The duration of the >= 30% drop in signal excursion is >= 10 seconds. There is a greater than or equal to 4% oxygen desaturation from pre-event baseline. Respiratory Effort Related Arousal (RERA) definition: 10 seconds characterized by increasing respiratory effort or by flattening of the nasal pressure or PAP flow waveform leading to arousal from sleep when the sequence of breaths does not meet criteria for an apnea or hypopnea. Respiratory Disturbance Index (RDI) definition: RDI = (#apneas + #hypopneas + #RERAs) x 60 / TST. If AHI is 0.0, then RDI = RERA index. SLEEP ARCHITECTURE: The study started at 22:22:36 and ended at 04:51:26. Total sleep time (TST) was 203 minutes resulting in a sleep efficiency of 52.2% (total recording time (TRT) = 389 m). There were 35 awakenings with a total time awake after sleep onset of 165.0 minutes. The sleep latency was 21.0 minutes and the REM latency was 259 minutes. The patient spent 65.3% of sleep time in the supine position. The sleep stage percentages were 16.3% stage N1, 80.8% stage N2, 0.0% stage N3 and 3.0% REM sleep. There were 100 arousals, resulting in an arousal index of 29.6. There were 108 stage shifts. RESPIRATORY DATA: Snoring was noted. There were 39 respiratory events consisting of 0 apneas, 1 hypopneas and 38 RERAs. The apnea-hypopnea index (AHI) was 0.3 and the central-apnea index (MINERVA) was 0.0. The respiratory effort related arousal (RERA) index was 11.2. The respiratory disturbance index (RDI) was 11.5. The mean oxygen saturation during the study was 97.0%, with a minimum oxygen saturation of 93.0%. The wake supine end-tidal CO2 (ETCO2) value was ~34 mmHg. The maximum ETCO2 was 42 mmHg. Rubio-Gleason/Periodic Breathing was not present. Supplemental oxygen was not administered. REM-Time REM AHI NREM-Time NREM AHI Total-Time Total RDI Total AHI Supine 0.0 m -- 132.5 m 0.5 132.5 m 14.9 0.5 Off-Supine 6.0 m 0.0 64.5 m 0.0 70.5 m 5.1 0.0 Total 6.0 m 0.0 197.0 m 0.3 203.0 m 11.5 0.3 MOVEMENT DATA: No abnormal behavior was noted. There were 7 periodic limb movements during sleep, resulting in a PLM-index of 2.1. Of these, 5 movements were associated with arousals, resulting in a PLM-arousal index of 1.5. ECG DATA: The average heart rate during sleep was 70 beats per minute, with a range of 65 to 79. During wake, the heart rate ranged from 65 to 89 beats per minute. The following arrhythmias were observed:Atrial fibrillation, Premature ventricular contractions OTHER NOTABLE FINDINGS: None. 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 Upper airway resistance syndrome (UARS) is a subtype of obstructive sleep apnea (MIRANDA). Although the overall apnea-hypopnea index (AHI) was in the normal range, the respiratory disturbance index (RDI) was in the mild range, indicating potential clinical significance. Severity of the sleep-related breathing disorder may be underestimated due to limited recorded REM and supine sleep, and to the presence of mild flow and effort decrements associated with arousal and/or oxygen desaturation not meeting established CMS respiratory event criteria. Respiratory events were associated with oxygen desaturations to a lindsey of 93%. If sleep apnea is strongly suspected, a repeat PSG may be indicated given night to night variability in sleep apnea and the possibility of a false negative study. RECOMMENDATIONS: Treatment of upper airway resistance syndrome (UARS) can include exercise, weight loss, treatment of allergies, positional therapy, dental appliance or surgical correction of any airway abnormalities may also improve signs and symptoms. INTERPRETING PHYSICIAN: Judy White MD,[facility] She goes to bed at 2300 on weekdays and 2300 on weekends. She awakens at 0700 on weekdays and 0700 on weekends. She estimates a total sleep time of 7 hours each night. She falls asleep in 5 minutes, and awakens 3 times per night. Naps: Yes ( [5] per week for [30] min). Abnormal work hours (outside 6 am-7 pm): No. Sleep disordered breathing symptoms (last month) Loud Snoring Rarely (less than once a week) Snorting or gasping Rarely (less than once a week) Breathing stops, chokes, or struggles Rarely (less than once a week) Sleepiness and fatigue frequency (last month) Tired upon awakening 5-7 times a week Very sleepy during the day 5-7 times a week Involuntarialy falling asleep 3-4 times a week Tired or Fatigued 5-7 times a week Fallen asleep driving Never Insomnia severity (last month). Currently having any of the following: Yes Difficulty falling asleep Mild Difficulty staying asleep Severe Problems waking up too early Moderate Abnormal behaviors frequency (last month) Problems disturb bed partner s sleep Rarely (less than once a week) Unusual behaviors during sleep Don't know Kicking while asleep Don't know Acting out dreams Don't know Violent behaviors while asleep Don't know Hypnagogic hallucinations 3-4 times a week Sleep paralysis Rarely (less than once a week) Cataplexy (ever experienced) No Restless Leg Symptoms (Ever had these symptoms) Unpleasant sensations in legs and urge to move No Feelings in your legs occur mainly or only at rest Feelings in your legs improve with movement Feelings worse in the evening or night than in the morning Past Medical History: Diagnosis Date A-fib Abnormal electrocardiogram Atrial flutter Atrial tachycardia Chest pain, unspecified Fatigue GERD (gastroesophageal reflux disease) Mitral valve prolapse Palpitations SOB (shortness of breath) Tachycardia Past Surgical History: Procedure Laterality Date ATRIAL FIBRILLATION ABLATION N/A 08/19/2013 Laterality: N/A; Surgeon: Zak Jara MD; Location: [facility] EP MYOCARDIAL PERFUSION NM 03/04/13 [facility] CARDIAC CATH (OUTSIDE) 09/17/12 [facility] ECHOCARDIOGRAM (OUTSIDE) 09/15/12 [facility] Allergies Allergen Reactions Adhesive [*Adhesive Tape] Itching, Swelling and Redness Allergy to telemetry patches. Erythromycin [Erythromycin] Penicillins Sulfa Antibiotics Current Outpatient Medications Medication Instructions acetaminophen (TYLENOL) 325 MG PO tablet NEEDED apixaban 2.5 MG tablet Oral, 2 TIMES DAILY, 5mg bid Aspirin (ECOTRIN LOW STRENGTH) [address] 1 tablet, DAILY AT BEDTIME Calcium Carbonate-Vitamin D 600-125 MG-UNIT PO TABS 2 tablets, DAILY Cholecalciferol (VITAMIN D) 1000 UNITS PO TABS 1 tablet, DAILY Docusate Calcium (STOOL SOFTENER PO) 100 mg, 2 TIMES DAILY Dofetilide (TIKOSYN) 250 mcg, Oral, EVERY 12 HOURS NON-STANDARD, If 3 doses are missed, contact the prescribing health information technician as soon as possible. esomeprazole [address] capsule take 1 capsule by mouth daily 1/2 HOUR before breakfast Estradiol (VAGIFEM VA) TWICE WEEKLY estrogens conjugated (PREMARIN) 0.625 MG/GM VA CREA EVERY 7 DAYS Famotidine (PEPCID AC) 10 MG PO CHEW NEEDED furOSEmide (LASIX) 20 mg, DAILY hydrocortisone 0.5 % EX CREA 1 Application by Topical route 2 times daily. Apply to irritated old lead patch areas. F/U with your PCP if no improvement. magnesium oxide (MAG-OX) 400 mg, Oral, DAILY Metoprolol succinate (TOPROL XL) 12.5 mg, Oral, DAILY AT BEDTIME midodrine 2.5 MG tablet 1 tablet, Oral, 2 TIMES DAILY Multiple Vitamins-Minerals (OCUVITE PRESERVISION) PO TABS 1 tablet, DAILY sertraline (ZOLOFT) 25 MG PO TABS 0.5 tablets, DAILY Social History Tobacco Use Smoking status: Never Smokeless tobacco: Never Substance Use Topics Alcohol use: No Comment: used to drink 1 glass of wine daily but not an occassional sip out of her 's glass. Drug use: No Caffeine intake is [ 1 ] drinks per day, up until [ 8 ] hours before bed. Family History Problem Relation Age of Onset Heart Disease - Other Mother chf Hypertension Mother Uterine Cancer Mother 74 Hypertension Sister Uterine Cancer Maternal Grandmother 67 possible Prostate Cancer Maternal Grandfather 88 Breast Cancer Sister 68 Lung Cancer Sister 66 Cancer- Other Cousin 35 brain Known family history of sleep disorders: MIRANDA in 1 son(s) Review of Systems Weight has had [ 4 lbs gained], [ lbs lost] in the last year. Patient reported positive symptoms in the past month include: Nasal congestion, Swelling in the ankles or legs, Palpitations or irregular heartbeat, Frequent urination at night, Joint pain, Environmental allergies, Trouble concentrating, Memory problems, Depression, Anxiety All other systems are negative. Physical Exam Ht 1.695 m (5' 6.75) Wt 54.4 kg (120 lb) BMI 18.94 kg/m Smoking Status Never Body mass index is 18.94 kg/m . Appears the stated age Not in distress, answered questions appropriately, affect is normal Laboratory and others: Previous medical records from [facility] were reviewed. Serum Chemistry: Lab Results Component Value Date SODIUM 132 (L) 08/21/2013 POTASSIUM 4.1 08/21/2013 CHLORIDE 104 08/21/2013 CO2 25 08/21/2013 BUN 14 08/21/2013 CREATSERUM 0.67 08/21/2013 GLUCOSE 101 (H) 08/21/2013 HBA1c: No results found for: HGBA1C Thyroid function tests: Lab Results Component Value Date TSH 1.751 07/18/2013 Lipid profile: No results found for: CHOLESTEROL, TRIG, HDL, LDLCALC No results found for: FERRITIN ECHO: Results for orders placed during the hospital encounter of 08/19/13 ECHOCARDIOGRAM 08/20/2013 (Final) Narrative Patient: Rosana Maki Med Rec#: [id number] : 1940 Date: 08/20/2013 Age: 73 Height: 168 cm / 65.5 in Weight: 53 kg / 116.6 lbs Sex: F BSA: 1.59 Room#: [facility] Type: Inpatient Loc: [facility] Lab Fellow (int): Nakul Shah MD Referring: VANDANA MILES A Reading: Mal Palacios M.D. [employer] Supervisor: Mai Mccarthy BSDMS, RDCS Rhythm: NSR HR: 80 BP: 126/68 Transthoracic Echocardiogram Conclusions 1. Limited study to evaluate for pericardial effusion s/p AF RFA. 2. LV and RV appear grossly normal in size and function. Valves not assessed. 3. Small pericardial effusion present. 4. No echocardiographic signs of tamponade physiology present (no TV or MV in flow variation, no signs of RV collapse) 5. IVC is dilated and does not collapse - estimated RA pressure 13 mmHg. Indication: Evaluate for Pericardial Effusion Findings L Ventricle: The left ventricular chamber size is normal. Regional wall motion is normal. R Ventricle: The right ventricular cavity size is normal. The right ventricular global systolic function is normal. L Atrium: The left atrial chamber size is normal. R Atrium: The right atrial cavity size is normal. Mitral V: The mitral valve leaflets appear normal. Aortic V: The aortic valve structure is normal. Tricuspid V: The tricuspid valve leaflets are normal. Pulmonic V: The pulmonic valve is not well visualized. Aorta: The Aorta was not well visualized. Pulmonic A: The main pulmonary artery is not well visualized. Pericardium: There is a small pericardial effusion. There was no evidence of cardiac tamponade. Venous: The inferior vena cava is dilated. There is less than 50% respiratory change in the inferior vena cava dimension. Diagnosis codes: 20379 TTE, followup or limited study. 423.8 Pericardial effusion other specified [( )]. (R) Diagnostic Review: ESS 10 FOSQ 14 KOBE 17 IRLS MVAP 0.144 [place] Sleepiness Score (ESS) > 10 indicates daytime sleepiness but should not be the sole criteria for sleepiness. FOSQ-10 < 17.9 indicates decreased of quality of life due to impact sleepiness. Total KOBE score interpretation: 0-7 = No clinically significant insomnia 8-14 = Subthreshold insomnia 15-21 = Clinical insomnia (moderate severity) 22-28 = Clinical insomnia (severe) This telehealth visit is a real time video visit communication. During the scheduling process, this patient has verbally consented to the submission of Telehealth visits and the patient is aware of the risks, benefits, and possible coinsurance/copay costs. Patient Location: Home Time to complete visit: 30 minutes documented in this encounter [facility] 09-29-2024 Instructions Maya Sal MD - 09/29/2024 11:00 AM EST Images from the original note were not included. Obstructive Sleep Apnea This is a link to an educational video about Obstructive Sleep Apnea: https://www.Ratio.com/watch?v= [email or web address] What are the risk factors for Obstructive Sleep Apnea (MIRANDA)? Obesity Snoring Daytime sleepiness Increasing age Male gender Taking sedating medications Alcohol use Hypertension Stroke Diabetes Smoking What is MRIANDA? People with MIRANDA experience recurrent episodes during sleep when their throat closes or significantly narrows and they cannot inhale air into their lungs. This happens because the muscles that normally hold the throat open during wakefulness relax during sleep and allow it to narrow (Figure 1 ). When the muscles relax too much, trying to inhale can cause the throat to completely close and air cannot pass at all for at least 10 seconds. This is an obstructive apnea (Figure 2). An obstructive hypopnea occurs when the throat is partially closed for at least 10 seconds and airflow is decreased so much that oxygen in the blood starts to be fall (Figure 3). MIRANDA is measured by how many apneas and hypopneas we have per hour. This is called an Apnea Hypopnea Index (AHI). It is considered excessive to have more than 5 apneas or hypopneas per hour as this can be extremely disruptive to sleep and have significant effects on our health and well being. How does MIRANDA affect me? MIRANDA goes beyond affecting just our quality of sleep. It interferes with many other systems of our body. Increase in blood pressure Worsened control of diabetes Daytime sleepiness and fatigue Irritability Difficulty concentrating or remembering facts Difficulty losing weight Swelling in the legs Frequent awakenings to urinate Increased risk of stroke Increased risk of irregular heart rhythm Increased risk for cardiovascular disease Decreased sexual drive Morning headaches Increased risk of motor vehicle accident How is MIRANDA treated? The first line of treatment for MIRANDA is continuous positive airway pressure (CPAP). A CPAP device provides air though a mask that fits over your nose or mouth and nose. The CPAP provides enough airflow to prevent the airway from collapsing when sleeping. This air can be humidified for comfort. Newer masks fit comfortably over the nasal opening rather than over the nose. It is important that CPAP is used regularly each night for optimal results. Patients should notice improvement in sleepiness within the first week or two. Several second line therapies exist for MIRANDA. Behavioral therapy for MIRANDA includes weight loss and positional therapy which is avoidance of sleeping on ones back. Significant improvement in MIRANDA can occur with as little as 10% weight loss. Dental devices that hold the lower jaw or tongue forward during sleep can also relieve MIRANDA. These devices are not always as effective as CPAP but are preferred by some patients. Surgical procedures can reshape structures in the upper airways or surgically reposition the jaw, and may be helpful in some patients. It is often hard to predict how effective a surgical treatment will be in reducing or eliminating sleep apnea. Additional Information [facility] Sleep Medicine Program ([email or web address]/go/sl eepmedicine) [place] [employer] (www.aasmnet.org) National Sleep Foundation (www.sleepfoundation.org) [place] Sleep Apnea Association (www.sleepapnea.org) National Heart, Lung, and Blood [place] (www.nhlbi.nih.gov) [employer] (www.uptodate.com/patients) Drowsy Driving Tips These suggestions will help prevent you from the risk of drowsy driving. 1. If you feel tired or drowsy do not drive. Sleepiness is a major cause of motor vehicle accidents and accounts for 40% of all fatal crashes reported on the [facility]. No matter how much you think you can control sleepiness, you can't. 2. Ensure you follow your doctor's advice about the treatment for your sleep disorder. For example, if you have sleep apnea and use CPAP, ensure you use it fully the night before your trip. 3. Get a good night's sleep before driving. Do not reduce your sleep time if you plan a long drive the next day. Get to bed early and do not stay up late packing. 4. Avoid alcohol both the night before your trip and the during your trip. Alcohol will disrupt sleep and make you more tired the next day. Sleepiness and alcohol are additive in increasing impairment of your driving ability. 5. Avoid any sedative medications, including sedative antihistamines that are often contained in cold or allergy medications, the night before you drive as they may have long lasting effects the next day. 6. Travel during non-sleeping hours. Accidents due to sleepiness are more common during the nighttime hours. 7. If sleepy, stop and rest. Drink coffee, walk around or have a brief nap in your car if you are sleepy. Have a 10-15 minute break after every [address] 8. [address] with a concrete laborer. Share the driving. Relax in the back seat until it is your time to share the driving again. 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 Teri Araiza LPN July 28, 2024 8:47 AM [facility]11-14-2024 Miscellaneous Notes* Telephone Encounter - Teri Araiza LPN - 07/28/2024 8:46 AM EST Sleep medicine order, TAYLOR, Facesheet, faxed to [facility] sleep center per patient request. 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 RegardsRochelle MD [facility] Telephone encounter Note * Telephone Encounter - Rochelle Hackett MD - 07/21/2024 3:35 PM EST Please let patient know that she has upper respiratory resistance syndrome It is a little different from sleep apnea but similar in many ways and it is disturbing her sleep I would like her to see a sleep medicine doctor. RegardsRochelle MD [facility]10-31-2024 NoteHNO ID: [id number] Author: ?, ?, ? Service: ? Author Type: ? Type: Progress Notes Filed: 07/14/2024 03:02 Note Text: Sleep Study Check-In Documentation Date: July 14, 2024 Name: Rosana Maki Patient was accompanied by Spouse. Location: [place] Latex allergy: No Tape allergy: Yes Current medications were reviewed with the patient:Yes Sleep aid taken by patient for the sleep study: [place] of sleep aid: Not Applicable Procedure was explained to the patient and all questions were answered. PAP treatment discussed and shown to patient: Yes Knowledge Program (KP): KP was not completed in [employer] by patient and accepted Study type: Polysomnogram Adverse Event: No (If yes create a new abstract) Comments: Patient was advised to follow up with their ordering provider regarding test results [facility] History of Present illness Narrative* Bibi Marino - 07/14/2024 3:01 AM EDT Sleep Study Check-In Documentation Date: July 14, 2024 Name: Rosana Maki Patient was accompanied by Spouse. Location: [place] Latex allergy: No Tape allergy: Yes Current medications were reviewed with the patient:Yes Sleep aid taken by patient for the sleep study: [place] of sleep aid: Not Applicable Procedure was explained to the patient and all questions were answered. PAP treatment discussed and shown to patient: Yes Knowledge Program (KP): KP was not completed in [employer] by patient and accepted Study type: Polysomnogram Adverse Event: No (If yes create a new abstract) Comments: Patient was advised to follow up with their ordering provider regarding test results Bibi Marino * Brendon Juarez III, PhD - 06/13/2024 11:32 AM EDT June 13, 2024 Standing PSG Orders signed in the last 90 days None Future PSG Orders signed in the last 90 days Ordered Auth. provider POLYSOMNOGRAM (PSG) [[id number]] 05/18/24 Rochelle Hackett MD Assoc. diagnoses: Sleep apnea, unspecified type [G47.30] Q: Indications - Select All That Apply: A: Obstructive sleep apnea (snoring, tiredness/fatigue/daytime sleepiness, behavior disturbance, craniofacial abnormality, tonsil hypertrophy) Q: Comorbidities: A: NONE Q: Is the patient non-ambulatory or will they be accompanied by a caregiver?: A: No Q: Current use of supplemental oxygen during sleep period?: A: No Q: Add supplemental oxygen if needed per sleep lab policy?: A: Yes Q: Is this a repeat Sleep Study?: A: No Comment: She has one sleep study many years ago All Prior Sleep Studies (past 365 days) 05/18/2024 11:10 Sleep Studies POLYSOMNOGRAM (PSG) POLYSOMNOGRAM (PSG) Order Status: Ordered, Future Expires: 05/18/25 BMI Readings from Last 2 Encounters: 05/18/24 : 18.51 kg/m 04/12/24 : 18.48 kg/m PAST MEDICAL HISTORY Diagnosis Date Abnormality of [...] atrial flutter Unspecified constipation Vitamin D deficiency The medical record was reviewed to determine if the proposed sleep study conforms to the AASM Practice Parameters for the Indications for Polysomnography and Related Procedures, or if the sleep studyis indicated for other reasons. Indications for study: MIRANDA suspected with comorbid medical or sleep disorders: Cognitive impairment, disability, other special needs Significant, persistent cardiac arrhythmias Sleep study to be performed: Split Study-Polysomnogram with PAP titration Special instructions: Split night study if AHI > 15. Start with 5 cmH2O then titrate per protocol Target REM/supine sleep Add EtCO2 and Transcutaneous CO2 if available [facility] Staff Note: I have read the above protocol, edited as needed, and agree to the plan. Brendon Juarez III, PhD 4:43 PM, 06/13/2024 * Kristina Phillip - 06/10/2024 3:48 PM EDT June 10, 2024 An order has been received for Polysomnogram (PSG) from Rochelle Byrd, , a B[facility] Staff. Visit prep complete. Comments :Yes, She has one sleep study many years ago The sleep study is scheduled for 07/05. Insurance: Payor: MEDICARE / Plan: MEDICARE A AND B / Product Type: Medicare / Payer/Plan Subscr Sex Relation Sub. Ins. ID Effective Group Num 1. MEDICARE - [place]* ROSANA MAKI 1940 Female Self [id number] 01/[birth year]/07 [address] [employer]* ROSANA MAKI 1940 Female Self [id number] [birth year] [address] Kristina Phillip [facility] Instructions* Patient Instructions* Sol Harvey - 06/28/2024 9:09 AM EDT Your toe looks great Continue to monitor. No longer require a band aide If you have any issues, contact the office. documented in [facility]24 NoteHNO ID: [id number] Author: SOL HARVEY, ? Service: ? Author Type: Physician Type: Progress Notes Filed: 06/28/2024 09:11 Note Text: FOLLOW UP PODIATRIC OFFICE VISIT Chief Complaint: This 84 year old who presents for follow up:right hallux medial nail border matrixectomy Patient presents to clinic for follow-up right hallux medial nail border matrixectomy Patient is doing very well. Patient still has some pain but overall, doing well. Has been more active with travel. Seems to be doing ok. PAIN EVALUATION No data found in the last 1 encounters. No results found for: HBA1C PCP: Rochelle Hackett MD PAST MEDICAL HISTORY Diagnosis Date [...] D deficiency Current Outpatient Medications Medication Sig zoledronic acid (ZOMETA INTRAVENOUS) Inject intravenously. Every 6 months esomeprazole (NEXIUM) 40 mg capsule Take 1 capsule by mouth daily before breakfast. 1/2 hr before meal. famotidine (PEPCID) 20 mg tablet take 1 [...] 120mg 3 at night Stress, blood sugar, thyroid/hormones/adrenals/sleep/energy/toxins/muscles/constipation/asthma Work up to 3 capsules with meals at night - can cause loose stools metoprolol succinate ER (TOPROL XL) 25 mg 24 hr tablet Take half tablet in the morning and 1 tablet in the evening. APIXABAN (ELIQUIS ORAL) Take by mouth twice [...] W/COLLJ SPEC BR/WA IF PFRMD 07/23/2004 Sigmoidoscopy Physical Exam: OBJECTIVE: Constitutional: Pt is a well developed 84 year old female who is alert, oriented, cooperative and in no apparent distress. Eyes: Following during examination. No redness or drainag (more content not included)...[facility] History of Present illness Narrative* Sol Harvey - 06/28/2024 9:06 AM EDT FOLLOW UP PODIATRIC OFFICE VISIT Chief Complaint: This 84 year old who presents for follow up:right hallux medial nail border matrixectomy Patient presents to clinic for follow-up right hallux medial nail border matrixectomy Patient is doing very well. Patient still has some pain but overall, doing well. Has been more active with travel. Seems to be doing ok. PAIN EVALUATION No data found in the last 1 encounters. No results found for: HBA1C PCP: Rochelle Hackett MD PAST MEDICAL HISTORY Diagnosis Date [...] D deficiency Current Outpatient Medications Medication Sig zoledronic acid (ZOMETA INTRAVENOUS) Inject intravenously. Every 6 months esomeprazole (NEXIUM) 40 mg capsule Take 1 capsule by mouth daily before breakfast. 1/2 hr before meal. famotidine (PEPCID) 20 mg tablet take 1 [...] 120mg 3 at night Stress, blood sugar, thyroid/hormones/adrenals/sleep/energy/toxins/muscles/constipation/asthma Work up to 3 capsules with meals at night - can cause loose stools metoprolol succinate ER (TOPROL XL) 25 mg 24 hr tablet Take half tablet in the morning and 1 tabletin the evening. APIXABAN (ELIQUIS ORAL) Take by mouth twice [...] W/COLLJ SPEC BR/WA IF PFRMD 07/23/2004 Sigmoidoscopy Physical Exam: OBJECTIVE: Constitutional: Pt is a well developed 84 year old female who is alert, oriented, cooperative and in no apparent distress. Eyes: Following during examination. No redness or drainage. Respiratory: RR normal and nonlabored. Even breathing. No evidence of distress. Psychology: Patient is engaged during conversation. Normal affect and mood. Does not appear depressed or anxious. NVSI unchanged from previous visit. Dermatological: Right hallux medial nail border is now healed without infectin No pain ASSESSMENT: (S91.109A) Open wound of toe, initial encounter (primary encounter diagnosis) PLAN: Patient is s/p matrixectomy of right hallux medial nail border The nail border appears to be healed. Patient is very happy with outcome Sol Harvey DPM documented in this encounterAd[facility]09-30-[facility]24 NoteHNO ID: [id number] Author: BRENDON JUAREZ III, PhD Service: ? Author Type: Physician Type: Progress Notes Filed: 07/14/2024 03:02 Note Text: June 13, 2024 Standing PSG Orders signed in the last 90 days None Future PSG Orders signed in the last 90 days Ordered Auth. provider POLYSOMNOGRAM (PSG) [[id number]] 05/18/24 Rochelle Hackett MD Assoc. diagnoses: Sleep apnea, unspecified type [G47.30] Q: Indications - Select All That Apply: A: Obstructive sleep apnea (snoring, tiredness/fatigue/daytime sleepiness, behavior disturbance, craniofacial abnormality, tonsil hypertrophy) Q: Comorbidities: A: NONE Q: Is the patient non-ambulatory or will they be accompanied by a caregiver?: A: No Q: Current use of supplemental oxygen during sleep period?: A: No Q: Add supplemental oxygen if needed per sleep lab policy?: A: Yes Q: Is this a repeat Sleep Study?: A: No Comment: She has one sleep study many years ago All Prior Sleep Studies (past 365 days) 05/18/2024 11:10 Sleep Studies POLYSOMNOGRAM (PSG) POLYSOMNOGRAM (PSG) Order Status: Ordered, Future Expires: 05/18/25 BMI Readings from Last 2 Encounters: 05/18/24 : 18.51 kg/m? 04/12/24 : 18.48 kg/m? PAST MEDICAL HISTORY Diagnosis Date Abnormality of [...] atrial flutter Unspecified constipation Vitamin D deficiency The medical record was reviewed to determine if the proposed sleep study conforms to the AASM Practice Parameters for the Indications for Polysomnography and Related Procedures, or if the sleep study is indicated for other reasons. Indications for study: MIRANDA suspected with comorbid medical or sleep disorders: Cognitive impairment, disability, other special needs Significant, persistent cardiac arrhythmias Sleep study to be performed: Split Study-Polysomnogram with PAP titration Special instructions: Split night study if AHI > 15. Start with 5 cmH2O then titrate per protocol Target REM/supine sleep Add EtCO2 and Transcutaneous CO2 if available Dem[facility] Staff Note: I have read the above protocol, edited as needed, and agree to the plan. Brendon Juarez III, PhD 4:43 PM, 06/13/2024[facility]09-27-2024 NoteHNO ID: [id number] Author: ?, ?, ? Service: ? Author Type: ? Type: Progress Notes Filed: 07/14/2024 03:02 Note Text: June 10, 2024 An order has been received for Polysomnogram (PSG) from Rochelle Byrd a B[facility] Staff. Visit prep complete. Comments :Yes, She has one sleep study many years ago The sleep study is scheduled for 07/05. Insurance: Payor: MEDICARE / Plan: MEDICARE A AND B / Product Type: Medicare / Payer/Plan Subscr Sex Relation Sub. Ins. ID Effective Group Num 1. MEDICARE - [place]* ROSANA MAKI 1940 Female Self [id number] [birth year] [address] [facility]* ROSANA MAKI 1940 Female Self [id number] [birth year] [address] [facility]09-19-2024 NoteHNO ID: [id number] Author: CAROLINE DAY LPN Service: ? Author Type: LICENSED NURSE Type: Progress Notes Filed: 06/05/2024 13:54 Note Text: UNIVERSAL PROTOCOL / SAFETY CHECKLIST Procedure to be Performed: Partial chemical matrixectomy, right hallux medial nail border Sign In: A Moment of CARE was completed. Personnel directly involved with the procedure wore the appropriate PPE (Personal Protective Equipment). No special equipment needed. Patient/Surrogate Stated/Verified: PATIENT VERIFIED(optional for EMERGENT procedures): Patient name, Date of , Relevant allergies, and The intended procedure Time Out Communication: Intended patient and procedure match the source documents. Consent documented and matches the intended procedure. Relevant labs, photos, and/or imaging studies have been reviewed. Correct side/site marked and visible. Medications required for procedure verified. No fire risk assessment and interventions applicable. No implant(s) inserted. Sign Out: SIGN OUT (optional for EMERGENT procedures): No specimen collected. All instruments, equipment, possible retained foreign bodies accounted for. Post-procedure follow-up management communicated and Plan of Care Visit completed when applicable. [facility] History of Present illness Narrative* Caroline Day LPN - 06/02/2024 3:49 PM EDT UNIVERSAL PROTOCOL / SAFETY CHECKLIST Procedure to be Performed: Partial chemical matrixectomy, right hallux medial nail border Sign In: A Moment of CARE was completed. Personnel directly involved with the procedure wore the appropriate PPE (Personal Protective Equipment). No special equipment needed. Patient/Surrogate Stated/Verified: PATIENT VERIFIED(optional for EMERGENT procedures): Patient name, Date of , Relevant allergies, and The intended procedure Time Out Communication: Intended patient and procedure match the source documents. Consent documented and matches the intended procedure. Relevant labs, photos, and/or imaging studies have been reviewed. Correct side/site marked and visible. Medications required for procedure verified. No fire risk assessment and interventions applicable. No implant(s) inserted. Sign Out: SIGN OUT (optional for EMERGENT procedures): No specimen collected. All instruments, equipment, possible retained foreign bodies accounted for. Post-procedure follow-up management communicated and Plan of Care Visit completed when applicable. Caroline Day LPN * Sol Harvey - 06/02/2024 3:21 PM EDT Images from the original note were not included. Chief Complaint: This 84 year old female who presents with chief complaint:ingrowing toenail of b/lhallux R>l HPI Patient presents to clinic for evaluation of b/l feet Complains of ingrowing toenail, primarily to the right hallux medial nail border This is a common issue and she states that as the nail grows out, it causes her pain She is here to discuss possible procedure on the right great toe. No pain on left great toe. PAIN EVALUATION 05/29/20249 Pain Level: 3 Pain Location: Toe Description: Pressure;Tenderness Duration Units: Minutes Frequency: Intermittent Intervention/Comfort measure: Reposition No results found for: HBA1C PCP: Rochelle Hackett MD PAST MEDICAL HISTORY Diagnosis Date [...] D deficiency Current Outpatient Medications Medication Sig zoledronic acid (ZOMETA INTRAVENOUS) Inject intravenously. Every 6 months esomeprazole (NEXIUM) 40 mg capsule Take 1 capsule by mouth daily before breakfast. 1/2 hr before meal. famotidine (PEPCID) 20 mg tablet take 1 [...] 120mg 3 at night Stress, blood sugar, thyroid/hormones/adrenals/sleep/energy/toxins/muscles/constipation/asthma Work up to 3 capsules with meals at night - can cause loose stools metoprolol succinate ER (TOPROL XL) 25 mg 24 hr tablet Take half tablet in the morning and 1 tabletin the evening. APIXABAN (ELIQUIS ORAL) Take by mouth twice [...] Never Smokeless tobacco: Never Vaping Use Vaping status: Never Used Substance Use Topics Alcohol use: Yes Alcohol/week: [...] Exam: Constitutional: Pt is a well developed 84 year old female who is alert, oriented and cooperative Eyes: Following during examination. No redness or drainage. Respiratory: RR normal and nonlabored. Even breathing. No evidence of distress or shortness of breath. Psychology: Patient is engaged during conversation. Normal affect and mood. Does not appear depressed or anxious during encounter. Vascular: Dorsalis pedis and posterior tibial pulses palpable as b/l Capillary Fill time < 5 seconds to digits 1-5 b/l Skin temperature warm to warm proximal to distal b/l Hair growth present to digits Non-Invasive Vascular Laboratory [facility] Lower Extremity Arterial Physiology Study Bilateral/Complete Date of service/time: 01/29/2023 8:59:20 AM Name: MRS. ROSANA MAKI Date of : 1940 Age: 82 years Gender: F Clinical Indication Abnormal pulses and bilateral foot pain. TECHNIQUE -------- An arterial physiological examination was performed, including measurement of blood pressures using continuous wave Doppler and recording of plethysmographic with or without Doppler waveforms at the below-mentioned limb segments. FINDINGS -------- RIGHT SIDE AT REST Right Doppler Waveforms Dorsalis pedis: Multiphasic. Post tibial: Multiphasic. Right Pressures Brachial: 161 mmHg Ankle dorsalis pedis: 184 mmHg EDILIA: 1.14 Ankle posterior tibial: 162 mmHg EDILIA: 1.01 Digit: 129 mmHg Right PVR Waveforms Ankle: Normal. Digit: Normal. LEFT SIDE AT REST Left Doppler Waveforms Dorsalis pedis: Multiphasic. Post tibial: Multiphasic. Left Pressures Brachial: 154 mmHg Ankle dorsalis pedis: 187 mmHg EDILIA: 1.16 Ankle posterior tibial: 165 mmHg EDILIA: 1.02 Digit: 140 mmHg Left PVR Waveforms Ankle: Normal. Digit: Mildly dampened. IMPRESSION RIGHT SIDE Resting right ankle brachial index: 1.14 Right toe brachial index: 0.80 Normal ankle brachial index at rest in the right leg. Normal toe brachial index at rest in the right leg. Right ankle: Normal at rest. LEFT SIDE Resting left ankle brachial index: 1.16 Left toe brachial index: 0.87 Normal ankle brachial index at rest in the left leg. Normal toe brachial index at rest in the left leg. Left ankle: Normal at rest. Technologist: Deanna Womack RVT [facility] Ordering physician: SOL HARVEY Interpreting physician: SCOTTIE Gonzalez DO Neurological: intact light touch/epicritic sensation b/l intact protective sensation no significant neurological deficits Dermatological: Right hallux medial nail border is ingrowing with pain. No signs of infection. Webspaces clean and dry 1-4 b/l. Skin appears well hydrated and supple. good color, texture, turgor. No open lesions present. No callosities present. Musculoskeletal/Orthopaedic: Patient has pain to palpation of right hallux medial nail border Foot type is neutral structurally AJ ROM is full with knee extended and flexed 1st MPJ is full when loaded and no pain or crepitus are noted with ROM. MTJ, STJ are full and free of pain and crepitus. +5/5 muscle strength dorsiflexion, plantarflexion, inversion, eversion b/l Radiographs: n/a ASSESSMENT: PLAN: Discussed ingrowing toenail of right hallux medial nail border. Ingrown is present with pain. No signs of infection is present. Discussed options not limited to proper trimming of the nail vs partialnail matrixectomy . This patient has elected to pursue partial nail matrixectomy of the right hallux medial nail border Reviewed past pvr. She has normal blood flow to the foot to heal a toenail procedure. Discussed left great toenail. No pain. She has elected to monitor. Discussed risks of toenail procedure not limited to infection, pain, swelling, bleeding, painful scarring, recurrence, need for revised procedure. Patient consented to proceed. Patient was properly identified by name and procedure. The right hallux was then injected with 3 cc of 1% lidocaine plain.The toe was then prepped and draped in the usual aseptic technique. A digital tournicot was appliedto the toe. The medial nail border was then freed and removed. Careful inspection was performed to assure no remaining spicule present. 3 applications of phenol was applied to the right medial nail border followed by saline rinse. Sterile dressing was then applied consisting of amerigel, guaze, wiliam and coban. Tournicot was removed and hyperemic response was noted. Patient tolerated well. Sol Harvey DPM Podiatry [address] [facility] [address] Dept: [phone] Dept * Caroline Day LPN - 06/02/2024 3:06 PM EDT AMB ROOMING INTAKE FLOWSHEET DATA Pain Pain Level: 3 Pain Location: Toe Description: Pressure, Tenderness Duration Units: Minutes Frequency: Intermittent Intervention/Comfort measure: Reposition Patient presents with: Left Great Toe - Established Patient, Pain, Ingrown Toenail Right Great Toe - Established Patient, Pain, Ingrown Toenail Caroline Day LPN documented [facility]Ad[facility] Instructions* Patient Instructions* Sol Harvey - 06/02/2024 3:37 PM EDT Post-Op Nail Instructions Minimize activity until the anesthesia wears off (about 2-8 hours). Increase activity to tolerance Remove bandage tomorrow Soak affected toe/foot in epsom salts for 15-20 minutes twice daily After soaking, apply antibiotic ointment (OTC Neosporin) to affected toe and re bandage OTC Ibuprofen if having pain, provided you have no allergies or intolerance to NSAIDS Mild drainage, redness, and blood is expected, but if you expeirence severe pain, increase in drainage, swelling, or red streaking please contact our office immediately Feel free to contact office as well if you have any questions/concerns [phone], ask for Podiatry Nurse documented in this encounterAd[facility]09-19-[facility]24 NoteHNO ID: [id number] Author: SOL HARVEY, ? Service: ? Author Type: Physician Type: Progress Notes Filed: 06/05/2024 13:54 Note Text: Chief Complaint: This 84 year old female who presents with chief complaint:ingrowing toenail of b/l hallux R>l HPI Patient presents to clinic for evaluation of b/l feet Complains of ingrowing toenail, primarily to the right hallux medial nail border This is a common issue and she states that as the nail grows out, it causes her pain She is here to discuss possible procedure on the right great toe. No pain on left great toe. PAIN EVALUATION 05/29/2024 2209 Pain Level: 3 Pain Location: Toe Description: Pressure;Tenderness Duration Units: Minutes Frequency: Intermittent Intervention/Comfort measure: Reposition No results found for: HBA1C PCP: Rochelle Hackett MD PAST MEDICAL HISTORY Diagnosis Date [...] D deficiency Current Outpatient Medications Medication Sig zoledronic acid (ZOMETA INTRAVENOUS) Inject intravenously. Every 6 months esomeprazole (NEXIUM) 40 mg capsule Take 1 capsule by mouth daily before breakfast. 1/2 hr before meal. famotidine (PEPCID) 20 mg tablet take 1 [...] 120mg 3 at night Stress, blood sugar, thyroid/hormones/adrenals/sleep/energy/toxins/muscles/constipation/asthma Work up to 3 capsules with meals at night - can cause loose stools metoprolol succinate ER (TOPROL XL) 25 mg 24 hr tablet Take half tablet in the morning and 1 tablet in the evening. APIXABAN (ELIQUIS ORAL) Take by mouth twice [...] W/COLLJ SPEC BR/WA IF PFRMD 07/23/2004 Sigmoidoscopy FA (more content not included)...[facility]09-19-2024 NoteHNO ID: [id number] Author: CAROLINE DAY LPN Service: ? Author Type: LICENSED NURSE Type: Progress Notes Filed: 06/05/2024 13:54 Note Text: AMB ROOMING INTAKE FLOWSHEET DATA Pain Pain Level: 3 Pain Location: Toe Description: Pressure, Tenderness Duration Units: Minutes Frequency: Intermittent Intervention/Comfort measure: Reposition Patient presents with: Left Great Toe - Established Patient, Pain, Ingrown Toenail Right Great Toe - Established Patient, Pain, Ingrown Toenail [facility] Tele[facility] encounter Note* Telephone Encounter - Teri Araiza LPN - 05/20/2024 4:16 PM EDT Updated patient via MyChart Teri Araiza LPN May 20, 2024 4:16 PM [facility]09-[facility] Miscellaneous Notes* Telephone Encounter - Teri Araiza LPN - 05/20/2024 4:16 PM EDT Updated patient via MyChart Teri Araiza LPN May 20, 2024 4:16 PM * Telephone Encounter - Teri Araiza LPN - 05/20/2024 4:15 PM EDT ----- Message from Rochelle Hackett MD sent at 05/19/2024 9:27 AM EDT ----- Magnesium levels are normal Regards, Rochelle Hackett MD documented in this encounterAd[facility]09-[facility]24 Telephone encounter Note * Telephone Encounter - Teri Araiza LPN - 05/20/2024 4:15 PM EDT ----- Message from Rochelle Hackett MD sent at 05/19/2024 9:27 AM EDT ----- Magnesium levels are normal RegardsRochelle MD [facility]09-04-2024 Instructions* Patient Instructions* Rochelle Hackett MD - 05/18/2024 11:14 AM EDT Please get the sleep study Get a salesforce trainer to help with strengthening exercises, and try to get 30 mins of exercise daily Get lab work Increase protein intake documented in this encounterAd[facility]09-04-2024 NoteHNO ID: [id number] Author: ROCHELLE HACKETT MD Service: ? Author Type: Physician Type: Progress Notes Filed: 05/18/2024 13:04 Note Text: [facility] Initial Consult Rosana Maki is a 84 year old year old female who comes for Comprehensive Geriatric Assessment. Pt accompanied by: with Laureano Jimenez Caregivers involved in care: HPI: This is a 84-year-old woman with a past medical history of adrenal insufficiency, a flutter, irritable bowel, severe osteoporosis with closed fracture of the lumbar vertebra, anxiety depression, dizziness and giddiness, SIADH, history of breast cancer, esophageal reflux, chronic fatigue syndrome, atrophic vaginitis, anemia and mild cognitive disorder. Was informed by Dr Blanca that she has a mild cognitive decline when in the hospital for hyponatremia. She notes, it takes longer to cook, finish a project, she cannot really, remember details of recipes. notes she is slow in recalling and there is a little memory failure. She also has poly neuropathy, She did undergo Physical Therapy earlier this year. Any Family History of dementia? No family history of dementia, paternal grandmother had dementia. Are you or your spouse a ? Alzheimer Questionnaire Long-term Memory: Difficulty remembering distant events from the past like childhood, previous employment, wedding: NO Behavioral/personality: Withdrawn/Depressed: YES she sees therapist, cannot take medications due to hypnatremia and is controlled Crying spells: NO Anxious: YES controlled History of aggression: NO History of irritability: NO Apathy:NO Recent changes in weight or appetite: NO Alcohol or Drug use: YES couple sips of wine. She pours a little into her wine glass Smoking? NO Sleep: Do you snore loudly (louder than talking or loud enough to be heard through closed doors)? NO she does not really snore loudly Do you often feel tired, fatigued, or sleepy during daytime? YES she feels very tired and fatigued and takes a nap multiple days of the weeks for 45 mins at a time or an hour. Naps are refreshing. She can work through the fatigue. Has anyone observed you stop breathing during your sleep? She sometimes wakes up feeling like she is not breathing right Are you restless when you sleep at night? NO Do you have problems falling a sleep? NO Do you have problems staying a sleep? YES wakes up to get to there rest room, and she cannot get back to sleep Psychosis: Hallucinations or delusions: NO Suicidal or homicidal ideations: NO Obsessions, compulsions, or hoarding: NO Safety: Does pt know his/her address? NO What would you do if there was a fire? Get out How would you call for help?911 Does he/she know 911? YES Are there any firearms in the home? YES If yes are they in a secure location? Yes Social History: Primary language: Andorran Marital Status: Living situation: Home w/ Spouse Socially engaged? (participates in activities such as clubs, synagogue, community center, sports, games, visiting friends/relatives, etc?): YES synagogue, they go there 2 times a week. They meet with friends a lot Caregiver Peggs and Stress Are your feeling overwhelmed? NO Do you have concerns about your own health? NO Are you neglecting your own needs? NO Do you have financial concerns? NO Do your fear loss of employment? NO Do you have concerns about verbal/physical abuse? NO Do you feel that you are still capable of taking care of your relative? NO Are you willing to continue being in the caregiver role? NO B-ADLs: (I=independent,A=assistance,D=dependent) ?Bathing: I, Dressing: I, Toileting: I, Transferring:I, Continence: I, Feeding: I, I-ADLs: Ability to use phone: I, Shopping: I, Cooking: I, Housekeeping: I, Laundry: I, Transportation:I, Medications: {I, Handle Finances: I. Son helps with some of the financial stuff PMHx: PAST MEDICAL HISTORY 03/08/2013: Abnormality of gait No date: Allergic rhinitis due to other allergen No date: Atrial fibrillation (HCC) 04/25/2008: Chondrocalcinosis, cause unspecified, involving lower leg(432.36) Comment: CPPD right leg (on xray) - has never had an acute pseudogout attack No date: Chronic fatigue No date: Compression fracture of L1 lumbar vertebra (HCC) No date: Concussion No date: Depression No date: Diverticulosis of colon (without mention of hemorrhage) No date: Diverticulosis of large intestine No date: Duodenitis without mention of hemorrhage No date: Dysphagia 08/01/2010: Dysphagia, unspecified(990.20) No date: Esophageal reflux Comment: rare symptoms, had more pain on Prevacid than off it No date: Esophagitis, unspecified 02/11/2011: Fatigue 04/20/2008: Inflamed seborrheic keratosis 10/07/2010: Ingrown toenail No date: Irritable bowel syndrome Comment: gets constipated easily, also lactose intolerant (more content not included)...[facility]09-04[facility] History of Present illness Narrative* Rochelle Hackett MD - 05/18/2024 10:22 AM EDT [facility] Initial Consult Rosana Maki is a 84 year old year old female who comes for Comprehensive Geriatric Assessment. Pt accompanied by: with Laureano Jimenez Caregivers involved in care: HPI: This is a 84-year-old woman with a past medical history of adrenal insufficiency, a flutter, irritable bowel, severe osteoporosis with closed fracture of the lumbar vertebra, anxiety depression, dizziness and giddiness, SIADH, history of breast cancer, esophageal reflux, chronic fatigue syndrome, at rophic vaginitis, anemia and mild cognitive disorder. Was informed by Dr Blanca that she has a mild cognitive decline when in the hospital for hyponatremia. She notes, it takes longer to cook, finish a project, she cannot really, remember details of recipes. notes she is slow in recalling and there is a little memory failure. She also has poly neuropathy, She did undergo Physical Therapy earlier this year. Any Family History of dementia? No family history of dementia, paternal grandmother had dementia. Are you or your spouse a ? Alzheimer Questionnaire Long-term Memory: Difficulty remembering distant events from the past like childhood, previous employment, wedding: NO Behavioral/personality: Withdrawn/Depressed: YES she sees therapist, cannot take medications due to hypnatremia and is controlled Crying spells: NO Anxious: YES controlled History of aggression: NO History of irritability: NO Apathy:NO Recent changes in weight or appetite: NO Alcohol or Drug use: YES couple sips of wine. She pours a little into her wine glass Smoking? NO Sleep: Do you snore loudly (louder than talking or loud enough to be heard through closed doors)? NO she does not really snore loudly Do you often feel tired, fatigued, or sleepy during daytime? YES she feels very tired and fatigued and takes a nap multiple days of the weeks for 45 mins at a time or an hour. Naps are refreshing. She can work through the fatigue. Has anyone observed you stop breathing during your sleep? She sometimes wakes up feeling like she is not breathing right Are you restless when you sleep at night? NO Do you have problems falling a sleep? NO Do you have problems staying a sleep? YES wakes up to get to there rest room, and she cannot get back to sleep Psychosis: Hallucinations or delusions: NO Suicidal or homicidal ideations: NO Obsessions, compulsions, or hoarding: NO Safety: Does pt know his/her address? NO What would you do if there was a fire? Get out How would you call for help?911 Does he/she know 911? YES Are there any firearms in the home? YES If yes are they in a secure location? Yes Social History: Primary language: Andorran Marital Status: Living situation: Home w/ Spouse Socially engaged? (participates in activities such as clubs, synagogue, community center, sports, games, visiting friends/relatives, etc?): YES synagogue, they go there 2 times a week. They meet with friends a lot Caregiver Peggs and Stress Are your feeling overwhelmed? NO Do you have concerns about your own health? NO Are you neglecting your own needs? NO Do you have financial concerns? NO Do your fear loss of employment? NO Do you have concerns about verbal/physical abuse? NO Do you feel that you are still capable of taking care of your relative? NO Are you willing to continue being in the caregiver role? NO B-ADLs: (I=independent,A=assistance,D=dependent) ?Bathing: I, Dressing: I, Toileting: I, Transferring:I, Continence: I, Feeding: I, I-ADLs: Ability to use phone: I, Shopping: I, Cooking: I, Housekeeping: I, Laundry: I, Transportation:I, Medications: {I, Handle Finances: I. Son helps with some of the financial stuff PMHx: PAST MEDICAL HISTORY 03/08/2013: Abnormality of gait No date: Allergic rhinitis due to other allergen No date: Atrial fibrillation (HCC) 04/25/2008: Chondrocalcinosis, cause unspecified, involving lower leg(712.36) Comment: CPPD right leg (on xray) - has never had an acute pseudogout attack No date: Chronic fatigue No date: Compression fracture of L1 lumbar vertebra (HCC) No date: Concussion No date: Depression No date: Diverticulosis of colon (without mention of hemorrhage) No date: Diverticulosis of large intestine No date: Duodenitis without mention of hemorrhage No date: Dysphagia 08/01/2010: Dysphagia, unspecified(787.20) No date: Esophageal reflux Comment: rare symptoms, had more pain on Prevacid than off it No date: Esophagitis, unspecified 02/11/2011: Fatigue 04/20/2008: Inflamed seborrheic keratosis 10/07/2010: Ingrown toenail No date: Irritable bowel syndrome Comment: gets constipated easily, also lactose intolerant 02/23/2009: Loss of weight 10/18/2012: Lumbago 09/08/2017: 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 right knee 07/04/2009: Osteoporosis Comment: osteopenia 06/201104/20/2008: Other chronic dermatitis due to solar radiation No date: Other forms of migraine Comment: resolved 04/27/2014: Pain in joint, pelvic region and thigh No date: Recurrent UTI 04/20/2008: SOLAR LENGINES////DYSCHROMIA OTHER No date: Tachycardia Comment: tachycardia, atrial flutter No date: Unspecified constipation No date: Vitamin D deficiency PSHx: PAST SURGICAL HISTORY 08/19/2013: CATHETER, ABLATION Comment: for afib 07/23/2004: COLONOSCOPY FLX DX W/COLLJ SPEC WHEN PFRMD Comment: repeat due 201306/01/2014: COLONOSCOPY FLX DX W/COLLJ SPEC WHEN PFRMD Comment: Colonoscopy 2013: COLONOSCOPY SCREENING 2019: COLONOSCOPY SCREENING 1989: DILATION & CURETTAGE DX&/THER NONOBSTETRIC No date: EGD TRANSORAL BIOPSY SINGLE/MULTIPLE 08/01/2010: EGD TRANSORAL BIOPSY SINGLE/MULTIPLE 06/01/2014: ESOPHAGOGASTRODUODENOSCOPY TRANSORAL DIAGNOSTIC Comment: EGD 09/27/2009: NIPPLE EXPLORATION Comment: LEFT, surgical bx AGE 26: OOPHORECTOMY PARTIAL/TOTAL UNI/BI Comment: Oophorectomy-LEFT 04/2017: PAST SURGICAL HISTORY OF; Left Comment: breast mastectomy 07/23/2004: SIGMOIDOSCOPY FLX DX W/COLLJ SPEC BR/WA IF PFRMD Comment: Sigmoidoscopy Home Meds: Prior to Admission medications : Medication zoledronic acid (ZOMETA INTRAVENOUS), Sig Inject intravenously. Every 6 months, Start Date , End Date , Taking? Yes, Authorizing Provider Provider, [facility] Medication esomeprazole (NEXIUM) 40 mg capsule, Sig Take 1 capsule by mouth daily before breakfast.1/2 hr before meal., Start Date 12/15/23, End Date , Taking? Yes, Authorizing Provider Sara Rangel APRN.BLUEPRINTING AND PHOTOCOPY SUPERVISOR Medication famotidine (PEPCID) 20 mg tablet, Sig take 1 tablet by mouth at bedtime if needed, StartDate 09/08/23, End Date , Taking? Yes, Authorizing Provider Kalli Montes APRN.FLIGHT FOLLOWER Medication BENEFIBER, GUAR GUM, ORAL, Sig Take 2 teaspoonsful by mouth two times a day as needed., Start Date , End Date , Taking? Yes, Authorizing Provider Provider, [facility] Medication meclizine (ANTIVERT) 25 mg tab, Sig Take 1 tablet by mouth every 6 hours as needed (dizziness)., Start Date 05/08/23, End Date , Taking? Yes, Authorizing Provider Al Nichole APRN.FLIGHT FOLLOWER Medication fludrocortisone (FLORINEF) 0.1 mg tablet, Sig Taking 3 times a week Patient taking differently: Taking 1/2 a tablet 3 times a week, Start Date 11/13/21, End Date , Taking? Yes, Authorizing Provider Al Nichole APRN.FLIGHT FOLLOWER Medication Magnesium Glycinate 120mg 3 at night Stress, blood sugar, thyroid/hormones/adrenals/sleep/energy/toxins/muscles/constipation/asthma, Sig Work up to 3 capsules with meals at night - can cause loose stools, Start Date 03/21/21, End Date , Taking? Yes, Authorizing Provider Pamella Colby APRN.FLIGHT FOLLOWER Medication metoprolol succinate ER (TOPROL XL) 25 mg 24 hr tablet, Sig Take half tablet in the morning and 1 tablet in the evening., Start Date 01/19/20, End Date , Taking? Yes, Authorizing Provider Rochelle Hackett MD Medication APIXABAN (ELIQUIS ORAL), Sig Take by mouth twice daily., Start Date , End Date , Taking?Yes, Authorizing Provider Provider, [facility] Medication dofetilide (TIKOSYN) 250 mcg capsule, Sig Take 250 mcg by mouth twice daily., Start Date, End Date , Taking? Yes, Authorizing Provider Provider, [facility] Medication acetaminophen (TYLENOL) 325 mg tablet, Sig Take 650 mg by mouth every 6 hours as needed., Start Date , End Date , Taking? Yes, Authorizing Provider Provider, [facility] Medication calcium carbonate 600 mg-cholecalciferol 200 units 600 mg-5 mcg (200 unit) tab, Sig Take1 tablet by mouth once daily., Start Date 05/24/12, End Date , Taking? Yes, Authorizing Provider Ron Wong MD Medication ergocalciferol(VITAMIN D 400 UNIT CAP), Sig Take 1,000 Units by mouth once daily. , Start Date 10/07/21, End Date , Taking? Yes, Authorizing Provider Carlos Sheth MD Other OTC med/supplements: vitamins and pepcid . Takes vit d, david, and takes a cranberry supplementand iron supplement. Medication Review: - ANY HIGH RISK MEDICATIONS (STOPP CRITERIA): YES ALLERGIES Allergen Reactions Adhesive Tape (Selena* Rash Cantaloupe Erythromycin GI Upset Gemtesa [Vibegron] Diarrhea Grass Pollen Mold Penicillins Rash, Swelling Pollen Prevacid [Lansopraz* Diarrhea All PPIs tried have given her diarrhea. Sulfa (Sulfonamide * Pt uncertain if Sulfa allergy is accurate or not. Review of Systems Difficulty chew/swallow: very occasionally something dry will stick in his throat Pain: she has pain in the right hip, shoulder and knee Tremor: no tremors Incontinence - During the last 3 months did you leak urine? YES - Type?: mixed incontinence Constipation/Change in bowel habits: NO Vision No vision problems reported Follows with taxonomist:NO Hearing - Hearing aid : Hearing impairment, no hearing aids Falls: .: Falls in the last 12 months: None. If + falls: Physical Exam: General: Well-nourished, kempt Ambulatory: without assistance Mobility Aid: None Head: Normocephalic Eyes: Too much skin over the eyelids is making her eyes droop Neck: supple and no adenopathy Cardio: regular rate and rhythm Pulmonary: Lungs clear to auscultation bilaterally Extremities: Extremities normal. No deformities, edema, or skin discoloration. Musculoskeletal: Both Upper and Lower extremitis are 5/5 muscle strength. Neuro:Deep Tendon reflexes :2/4 , Both , Gait: Unsteadiness: YES Shuffling: NO Tremors: NO Slowness: YES Mini-Mental State Exam (MMSE): 26/30 CDR Dementia Scale 1) Subjective Memory Loss: YES 2) Measurable Memory Loss: YES 3) IADLs: NO 4) BADLs: NO Driving Safely: No < 50% 6) Medications: No Level: CDR 0.5 Depression Screening/Evaluation: GDS: Not done today Labs: Reviewed in [facility], vitamin B12 was normal Brain Imaging: November 2023 reviewed in [facility], remarkable for mild generalized volume loss in the brain Parenchyma and white matter changes suggestive of microvascular ischemia No diagnosis found. Assessment and Plan: I. Medical /Mental Status/Decision Making Capacity 1-Mentation # Subjective memory loss with measurable memory loss with MOCA score of 26/30 ... Patient does not have functional impairment. Etiology is likely cognitive concerns from medical conditions. CDR 0.5 FAST 4/5. During our interview today it appeared that her sleep is not appropriate. She is never really slept well for the longest time and there is some episodes of gasping, not feeling rested when she wakes up, need to nap in the afternoons and feeling tired all the time. Sometimes she is not as sleepy but she is very tired. Plan: Wanted to do an MRI in her to see if she is predisposed to having neurodegenerative condition but she cannot have an MRI done because of her pacemaker. Patient and family are looking for preservation of function. She will benefit from getting a sleep study done and she is open to getting that done 2-Mobility -- Frailty: She has exhaustion, decreased some of her activity and feels weak. She is definitely frail. Weight is stable. She would highly benefit from physical activity like exercise 30 minutes a day and some muscle strength and training. This will help with her cognition and her physical strength and help prevent frailty. We discussed this in detail and she was willing to get back with a personal consultant and also was willing to increase her protein intake Plan Get on a exercise program with a salesforce trainer to help with strength and training and take protein shakesif you cannot eat enough proteins but overall need to increase your protein intake. She is being treated for osteoporosis using the Zometa 3-Medications and chronic medical conditions All the medications she has to take are important for her and need to be continued I do not see any major issues with the current medications What matters most: Has living will healthcare power of actuary. REFERRALS AND RECOMMENDATIONS 1. Discussed the cognitive benefits of memory exercises and reviewed examples 2. Discussed the cognitive benefits of physical exercise and socialization I spent more than 60 minutes with the patient on full evaluation Rochelle Hackett MD [facility] documented [facility] NotePatient Outreach (INTMMN) ROSANA MAKI ([id number]) 1940 F NFR Date Time Provider Department 05/03/24 ROCHELLE HACKETT INTMMN During your visit today, we recorded the following information about you: Allergies As of Date: 05/03/2024 Noted Allergy Reaction ADHESIVE TAPE (ROSINS) 11/11/2013 2 - Rash CANTALOUPE 08/12/2005 ERYTHROMYCIN 08/12/2005 8 - GI Upset GEMTESA (VIBEGRON) 07/09/2023 6 - Diarrhea GRASS POLLEN 08/13/2005 MOLD 08/13/2005 PENICILLINS 08/12/2005 2 - Rash 7 - Swelling POLLEN 08/13/2005 PREVACID (LANSOPRAZOLE) 05/02/2014 6 - Diarrhea Comments: All PPIs tried have given her diarrhea. SULFA (SULFONAMIDE ANTIBIOTICS) 08/12/2005 Comments: Pt uncertain if Sulfa allergy is accurate or not. Date Reviewed: 04/22/2024 Reviewed by: Caroline Day LPN - Fully Assessed Visit Diagnosis:Medication management [Z79.899] Order(s):MAGNESIUM [SQMG1] Order #: [id number] FUTURE Prescriptions as of 05/06/2024 - zoledronic acid (ZOMETA INTRAVENOUS) Inject intravenously. Every 6 months - esomeprazole (NEXIUM) 40 mg capsule Take 1 capsule by mouth daily before breakfast. 1/2 hr before meal. - famotidine (PEPCID) 20 mg tablet take 1 tablet by mouth at bedtime if needed - BENEFIBER, GUAR GUM, ORAL Take 2 teaspoonsful by mouth two times a day as needed. - meclizine (ANTIVERT) 25 mg tab Take 1 tablet by mouth every 6 hours as needed (dizziness). - fludrocortisone (FLORINEF) 0.1 mg tablet Taking 3 times a week - Magnesium Glycinate 120mg 3 at night Stress, blood sugar, thyroid/hormones/adrenals/sleep/energy/toxins/muscles/constipation/asthma Work up to 3 capsules with meals at night - can cause loose stools - metoprolol succinate ER (TOPROL XL) 25 mg 24 hr tablet Take half tablet in the morning and 1 tablet in the evening. - APIXABAN (ELIQUIS ORAL) Take by mouth [...] once daily. Problem List As Of Date 05/03/2024 Noted Resolved Irritable Bowel Syndrome [K58.9] OSTEOPENIA [M89.9, M94.9] 07/04/2009 Esophageal reflux [K21.9] Other forms of migraine [346.8] 05/04/2007 Unspecified constipation [K59.00] Asymptomatic Postmenopausal Status (Age-Related* 10/28/2012 Osteoarth NOS-L/Leg [IHD6385] Palpitations [R00.2] 02/23/2009 Osteoporosis [M81.0] 07/04/2009 03/13/2012 Insomnia [G47.00] 02/11/2011 Hyponatremia [E87.1] 02/11/2011 Chronic fatigue disorder [G93.32] 02/11/2011 Paroxysmal atrial fibrillation (HCC) [I48.0] Mitral valve prolapse [I34.1] Closed fracture of lumbar vertebra (HCC) [S32.0*10/18/2012 Dizziness and giddiness [R42] 03/08/2013 Pain in joint, lower leg [M25.569] 04/27/2014 Right-sided low back pain with right-sided scia*07/24/2015 Neck pain [M54.2] 08/16/2015 Major depressive disorder, recurrent, in partia*12/20/2015 Osteopenia [M85.80] 12/20/2015 Chronic right shoulder pain [M25.511, G89.29] 11/11/2016 Anxiety and depression [F41.9, F32.A] 02/05/2017 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 (syndrome of inappropriate ADH production*03/09/2018 Chronic pain of right knee [M25.561, G89.29] 10/06/2018 Hospital discharge follow-up [Z09] 11/18/2019 11/12/2022 Mild cognitive disorder [F09] 11/27/2020 Protein-calorie malnutrition, unspecified sever*01/14/2023 Encounter Status:Closed by PAUL HORNUSER on 05/06/24[facility] 04-22-2024 NoteHNO ID: [id number] Author: CAROLINE DAY LPN Service: ? Author Type: LICENSED NURSE Type: Progress Notes Filed: 04/22/2024 14:11 Note Text: Per Rosana Roman was provided with powerstep gel inserts, size 8.5, and instructed/educated in its application, wear, and care. All questions were answered, and patient was able to demonstrate competence with the necessary skills to utilize the above equipment. [facility] History of Present illness Narrative* Caroline Day LPN - 04/22/2024 2:[address] Harvey, Rosana was provided with powerstep gel inserts, size 8.5, and instructed/educated in its application, wear, and care. All questions were answered, and patient was able to demonstratecompetence with the necessary skills to utilize the above equipment. Caroline Day LPN * Sol Harvey - 04/22/2024 1:44 PM EDT Images from the original note were not included. FOLLOW UP PODIATRIC OFFICE VISIT Chief Complaint: This 84 year old who presents with complaint of ingrowing toenail of b/l hallux and concerns for nail fungus. Patient presents to clinic for evaluation of b/l hallux. She complains of intermittent ingrowing toenail of medial border of b/l hallux. No complaint of infection. States she will tend to get pain on/off Also has concerns about fungus Lastly complains of balance issues and feels it may be related to neuropathy PAIN EVALUATION 04/21/2024 1600 Pain Level: 4 Pain Location: Foot-Left Description: Cramping;Sore Duration Units: Hours Frequency: Intermittent Intervention/Comfort measure: Reposition;Positioning Comments: intermittent pain in both big toes. Ingrown, deformed nails No results found for: HBA1C PCP: Rochelle Hackett MD PAST MEDICAL HISTORY 03/08/2013: Abnormality of gait No date: Allergic rhinitis due to other allergen No date: Atrial fibrillation (HCC) 04/25/2008: Chondrocalcinosis, cause unspecified, involving lower leg(762.36) Comment: CPPD right leg (on xray) - has never had an acute pseudogout attack No date: Chronic fatigue No date: Compression fracture of L1 lumbar vertebra (HCC) No date: Concussion No date: Depression No date: Diverticulosis of colon (without mention of hemorrhage) No date: Diverticulosis of large intestine No date: Duodenitis without mention of hemorrhage No date: Dysphagia 08/01/2010: Dysphagia, unspecified(787.20) No date: Esophageal reflux Comment: rare symptoms, had more pain on Prevacid than off it No date: Esophagitis, unspecified 02/11/2011: Fatigue 04/20/2008: Inflamed seborrheic keratosis 10/07/2010: Ingrown toenail No date: Irritable bowel syndrome Comment: gets constipated easily, also lactose intolerant 02/23/2009: Loss of weight 10/18/2012: Lumbago 09/08/2017: 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 right knee 07/04/2009: Osteoporosis Comment: osteopenia 06/201104/20/2008: Other chronic dermatitis due to solar radiation No date: Other forms of migraine Comment: resolved 04/27/2014: Pain in joint, pelvic region and thigh No date: Recurrent UTI 04/20/2008: SOLAR LENGINES////DYSCHROMIA OTHER No date: Tachycardia Comment: tachycardia, atrial flutter No date: Unspecified constipation No date: Vitamin D deficiency Current Outpatient Medications Medication Sig zoledronic acid (ZOMETA INTRAVENOUS) Inject intravenously. Every 6 months esomeprazole (NEXIUM) 40 mg capsule Take 1 capsule by mouth daily before breakfast. 1/2 hr before meal. famotidine (PEPCID) 20 mg tablet take 1 [...] 120mg 3 at night Stress, blood sugar, thyroid/hormones/adrenals/sleep/energy/toxins/muscles/constipation/asthma Work up to 3 capsules with meals at night - can cause loose stools metoprolol succinate ER (TOPROL XL) 25 mg 24 hr tablet Take half tablet in the morning and 1 tabletin the evening. APIXABAN (ELIQUIS ORAL) Take by mouth twice [...] is accurate or not. PAST SURGICAL HISTORY 08/19/2013: CATHETER, ABLATION Comment: for afib 07/23/2004: COLONOSCOPY FLX DX W/COLLJ SPEC WHEN PFRMD Comment: repeat due 201306/01/2014: COLONOSCOPY FLX DX W/COLLJ SPEC WHEN PFRMD Comment: Colonoscopy 2014: COLONOSCOPY SCREENING 2019: COLONOSCOPY SCREENING 1990: DILATION & CURETTAGE DX&/THER NONOBSTETRIC No date: EGD TRANSORAL BIOPSY SINGLE/MULTIPLE 08/01/2010: EGD TRANSORAL BIOPSY SINGLE/MULTIPLE 06/01/2014: ESOPHAGOGASTRODUODENOSCOPY TRANSORAL DIAGNOSTIC Comment: EGD 09/27/2009: NIPPLE EXPLORATION Comment: LEFT, surgical bx AGE 26: OOPHORECTOMY PARTIAL/TOTAL UNI/BI Comment: Oophorectomy-LEFT 04/2017: PAST SURGICAL HISTORY OF; Left Comment: breast mastectomy 07/23/2004: SIGMOIDOSCOPY FLX DX W/COLLJ SPEC BR/WA IF PFRMD Comment: Sigmoidoscopy Physical Exam: OBJECTIVE: Constitutional: Pt is a well developed 84 year old female who is alert, oriented, cooperative and in no apparent distress. Eyes: Following during examination. No redness or drainage. Respiratory: RR normal and nonlabored. Even breathing. No evidence of distress. Psychology: Patient is engaged during conversation. Normal affect and mood. Does not appear depressed or anxious. Vascular: DP and Pt pulses are palpable b/l. Non-Invasive Vascular Laboratory [facility] Lower Extremity Arterial Physiology Study Bilateral/Complete Date of service/time: 01/29/2023 8:59:20 AM Name: MRS. ROSANA MAKI Date of : 1940 Age: 82 years Gender: F Clinical Indication Abnormal pulses and bilateral foot pain. TECHNIQUE -------- An arterial physiological examination was performed, including measurement of blood pressures using continuous wave Doppler and recording of plethysmographic with or without Doppler waveforms at the below-mentioned limb segments. FINDINGS -------- RIGHT SIDE AT REST Right Doppler Waveforms Dorsalis pedis: Multiphasic. Post tibial: Multiphasic. Right Pressures Brachial: 161 mmHg Ankle dorsalis pedis: 184 mmHg EDILIA: 1.14 Ankle posterior tibial: 162 mmHg EDILIA: 1.01 Digit: 129 mmHg Right PVR Waveforms Ankle: Normal. Digit: Normal. LEFT SIDE AT REST Left Doppler Waveforms Dorsalis pedis: Multiphasic. Post tibial: Multiphasic. Left Pressures Brachial: 154 mmHg Ankle dorsalis pedis: 187 mmHg EDILIA: 1.16 Ankle posterior tibial: 165 mmHg EDILIA: 1.02 Digit: 140 mmHg Left PVR Waveforms Ankle: Normal. Digit: Mildly dampened. IMPRESSION RIGHT SIDE Resting right ankle brachial index: 1.14 Right toe brachial index: 0.80 Normal ankle brachial index at rest in the right leg. Normal toe brachial index at rest in the right leg. Right ankle: Normal at rest. LEFT SIDE Resting left ankle brachial index: 1.16 Left toe brachial index: 0.87 Normal ankle brachial index at rest in the left leg. Normal toe brachial index at rest in the left leg. Left ankle: Normal at rest. Technologist: Deanna Womack RVT, [facility] Ordering physician: SOL HARVEY Interpreting physician: SCOTTIE Gonzalez DO Neuro: protective sensation is decreased b/l. Dermatological: B/l hallux medial nail border has ingrowing tendency. No signs of infection. Some discoloration noted. Webspaces clean and dry 1-4 b/l. Skin appears well hydrated and supple. good color, texture, turgor. No open lesions present. No callosities present. Musculoskeletal/Orthopaedic: Patient has pain to palpation of medial border of b/l hallux ASSESSMENT: (B35.1) Onychomycosis (primary encounter diagnosis) (L60.0) Ingrowing toenail PLAN: Discussed ingrowing tendency of b/l hallux medial nail border. No signs of infection. Options include keeping the nail cut straight vs doing partial nail matrixectomy. She would like to pursue partial nail matrixectomy. Will schedule to provide her to stop eliqus for 2 days prior. Reviewed prior pvr. Normal. We discussed the possible etiologies of discolored, dystrophic, and thickened nails including fungus, yeast, mold as well as in some instances, prior trauma, or mechanical causes such as repetitive microtrauma in shoe gear. We discussed topical medication for discolored toenails which has very low success but no major side effects. We discussed oral medication. Patient will need hepatic testing prior to use. Patient informed of risks associated with Lamisil. We discussed removal of toenails. Patient would like to proceed with monitoring. She is not interested in topical or oral medication or removal. . Powersteps provided to provide support Sol Harvey DPM * Caroline Day LPN - 04/22/2024 1:31 PM EDT AMB ROOMING INTAKE FLOWSHEET DATA Pain Pain Level: 4 Pain Location: Foot-Left Description: Cramping, Sore Duration Units: Hours Frequency: Intermittent Intervention/Comfort measure: Reposition, Positioning Comments: intermittent pain in both big toes. Ingrown, deformed nails Patient presents with: Left Great Toe - Established Patient, Pain, Ingrown Toenail, Gait Problem Right Great Toe - Established Patient, Pain, Ingrown Toenail, Gait Problem Caroline Day LPN documented in [facility]Ad[facility]24 NoteHNO ID: [id number] Author: SOL HARVEY, ? Service: ? Author Type: Physician Type: Progress Notes Filed: 04/22/2024 14:07 Note Text: FOLLOW UP PODIATRIC OFFICE VISIT Chief Complaint: This 84 year old who presents with complaint of ingrowing toenail of b/l hallux and concerns for nail fungus. Patient presents to clinic for evaluation of b/l hallux. She complains of intermittent ingrowing toenail of medial border of b/l hallux. No complaint of infection. States she will tend to get pain on/off Also has concerns about fungus Lastly complains of balance issues and feels it may be related to neuropathy PAIN EVALUATION 04/21/2024 1600 Pain Level: 4 Pain Location: Foot-Left Description: Cramping;Sore Duration Units: Hours Frequency: Intermittent Intervention/Comfort measure: Reposition;Positioning Comments: intermittent pain in both big toes. Ingrown, deformed nails No results found for: HBA1C PCP: Rochelle Hackett MD PAST MEDICAL HISTORY 03/08/2013: Abnormality of gait No date: Allergic rhinitis due to other allergen No date: Atrial fibrillation (HCC) 04/25/2008: Chondrocalcinosis, cause unspecified, involving lower leg(882.36) Comment: CPPD right leg (on xray) - has never had an acute pseudogout attack No date: Chronic fatigue No date: Compression fracture of L1 lumbar vertebra (HCC) No date: Concussion No date: Depression No date: Diverticulosis of colon (without mention of hemorrhage) No date: Diverticulosis of large intestine No date: Duodenitis without mention of hemorrhage No date: Dysphagia 08/01/2010: Dysphagia, unspecified(787.20) No date: Esophageal reflux Comment: rare symptoms, had more pain on Prevacid than off it No date: Esophagitis, unspecified 02/11/2011: Fatigue 04/20/2008: Inflamed seborrheic keratosis 10/07/2010: Ingrown toenail No date: Irritable bowel syndrome Comment: gets constipated easily, also lactose intolerant 02/23/2009: Loss of weight 10/18/2012: Lumbago 09/08/2017: 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 right knee 07/04/2009: Osteoporosis Comment: osteopenia 06/201104/20/2008: Other chronic dermatitis due to solar radiation No date: Other forms of migraine Comment: resolved 04/27/2014: Pain in joint, pelvic region and thigh No date: Recurrent UTI 04/20/2008: SOLAR LENGINES////DYSCHROMIA OTHER No date: Tachycardia Comment: tachycardia, atrial flutter No date: Unspecified constipation No date: Vitamin D deficiency Current Outpatient Medications Medication Sig zoledronic acid (ZOMETA INTRAVENOUS) Inject intravenously. Every 6 months esomeprazole (NEXIUM) 40 mg capsule Take 1 capsule by mouth daily before breakfast. 1/2 hr before meal. famotidine (PEPCID) 20 mg tablet take 1 [...] 120mg 3 at night Stress, blood sugar, thyroid/hormones/adrenals/sleep/energy/toxins/muscles/constipation/asthma Work up to 3 capsules with meals at night - can cause loose stools metoprolol succinate ER (TOPROL XL) 25 mg 24 hr tablet Take half tablet in the morning and 1 tablet in the evening. APIXABAN (ELIQUIS ORAL) Take by mouth twice [...] is accurate or not. PAST SURGICAL HISTORY 08/19/2013: CATHETER, ABLATION Comment: for afib 07/23/2004: COLONOSCOPY FLX DX W/COLLJ SPEC WHEN PFRMD Comment: repeat due 201306/01/2014: COLONOSCOPY FLX DX W/COLLJ SPEC WHEN PFRMD Comment: Colonoscopy 2013: COLONOSCOPY SCREENING 2019: COLONOSCOPY SCREENING 1989: DILATION AND CURETTAGE DXAND/THER NONOBSTETRIC No date: EGD TRANSORAL BIOPSY SINGL (more content not included)...[facility]08-09-2024 NoteHNO ID: [id number] Author: CAROLINE DAY LPN Service: ? Author Type: LICENSED NURSE Type: Progress Notes Filed: 04/22/2024 14:07 Note Text: AMB ROOMING INTAKE FLOWSHEET DATA Pain Pain Level: 4 Pain Location: Foot-Left Description: Cramping, Sore Duration Units: Hours Frequency: Intermittent Intervention/Comfort measure: Reposition, Positioning Comments: intermittent pain in both big toes. Ingrown, deformed nails Patient presents with: Left Great Toe - Established Patient, Pain, Ingrown Toenail, Gait Problem Right Great Toe - Established Patient, Pain, Ingrown Toenail, Gait Problem [facility]07-[facility] Telephone encounter Note* Telephone Encounter - Al Nichole APRN.CNP - 04/13/2024 10:16 AM EDT Agree with recommendation. Consult order placed. Thank you Al Nichole APRN.CNP [facility]07-31-2024 Miscellaneous Notes* Telephone Encounter - Al Nichole APRN.CNP - 04/13/2024 10:16 AM EDT Agree with recommendation. Consult order placed. Thank you Al Nichole APRN.CNP * Telephone Encounter - Jane Harrell MA - 04/12/2024 9:47 AM EDT Consult to geriatrics pended for mild cognitive impairment. Please file if agreeable. Jane Harrell MA documented in this encounterAd[facility]07-[facility]24 Telephone encounter Note * Telephone Encounter - Jane Harrell MA - 04/12/2024 9:47 AM EDT Consult to geriatrics pended for mild cognitive impairment. Please file if agreeable. Jane Harrell MA [facility]07-30-2024 NoteHNO ID: [id number] Author: ROCHELLE HACKETT MD Service: ? Author Type: Physician Type: Progress Notes Filed: 04/12/2024 11:18 Note Text: Reason for Visit Patient presents with: 6 mo follow up Rosana Maki is a 84 year old female who presents here today for Above Complaints.. Health Maintenance There are no preventive care reminders to display for this patient. HPI This is a 84-year-old woman with a past medical history of adrenal insufficiency, a flutter, irritable bowel, severe osteoporosis with closed fracture of the lumbar vertebra, anxiety depression, dizziness and giddiness, SIADH, history of breast cancer, esophageal reflux, chronic fatigue syndrome, atrophic vaginitis, anemia and mild cognitive disorder. She was admitted 3-4 times in the past year for different reasons one of them being abnormality of gait and mobility, orthostatic hypotension, polyneuropathy, uti, epistaxis. Breast cancer and osteoporosis:She is now on zometa, was taking prolia, she has stopped the arimidex, will be having a BMD, and mammogram in May . Afib: on eliquis and tikosyn. Bleeding episodes are most bothersome. The last epistaxis needed cautery by Dr Shin. 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 Related to arimidex Anxiety depression: she sees the therapist every other week as the ssri worsen her SIADH. So she is doing well on the therapy. SIADH: followed by Dr. Enciso. On and off she goes into hyponatremia which presents in different ways and she has to be hospitalized most of this times. No problem-specific Assessment AND Plan notes found [...] allergies reviewed. Pertinent Lab/Diagnostic Studies are reviewed an (more content not included)... [facility] History of Present illness Narrative* Rochelle Hackett MD - 04/12/2024 8:53 AM EDT Reason for Visit Patient presents with: 6 mo follow up Rosana Maki is a 84 year old female who presents here today for Above Complaints.. Health Maintenance There are no preventive care reminders to display for this patient. HPI This is a 84-year-old woman with a past medical history of adrenal insufficiency, a flutter, irritable bowel, severe osteoporosis with closed fracture of the lumbar vertebra, anxiety depression, dizziness and giddiness, SIADH, history of breast cancer, esophageal reflux, chronic fatigue syndrome, at rophic vaginitis, anemia and mild cognitive disorder. She was admitted 3-4 times in the past year for different reasons one of them being abnormality of gait and mobility, orthostatic hypotension, polyneuropathy, uti, epistaxis. Breast cancer and osteoporosis:She is now on zometa, was taking prolia, she has stopped the arimidex, will be having a BMD, and mammogram in May . Afib: on eliquis and tikosyn. Bleeding episodes are most bothersome. The last epistaxis needed cautery by Dr Shin. 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 Related to arimidex Anxiety depression: she sees the therapist every other week as the ssri worsen her SIADH. So she isdoing well on the therapy. SIADH: followed by Dr. Enciso. On and off she goes into hyponatremia which presents in different ways and she has to be hospitalized most of this times. No problem-specific Assessment & Plan notes found [...] reviewed and discussed today Current Outpatient Medications: zoledronic acid (ZOMETA INTRAVENOUS) esomeprazole (NEXIUM) 40 mg capsule famotidine (PEPCID) 20 mg tablet BENEFIBER, GUAR GUM, ORAL meclizine (ANTIVERT) 25 mg tab fludrocortisone (FLORINEF) 0.1 mg tablet Magnesium Glycinate 120mg 3 at night Stress, blood sugar, thyroid/hormones/adrenals/sleep/energy/toxins/muscles/constipation/asthma metoprolol succinate ER (TOPROL XL) 25 mg 24 hr tablet APIXABAN (ELIQUIS ORAL) dofetilide (TIKOSYN) 250 mcg capsule calcium carbonate 600 mg-cholecalciferol 200 units 600 mg-5 mcg (200 unit) tab ergocalciferol(VITAMIN D 400 UNIT CAP) acetaminophen (TYLENOL) 325 mg tablet Review of Systems CONSTITUTIONAL: No fevers, chills [...] or numbness of concern. Physical Exam BP 126/74 Pulse 84 Resp 16 Ht 170.2 cm (5' 7) Wt 53.5 kg (118 lb) BMI 18.48 kg/m General appearance: Well appearing, [...] discoloration, clubbing or cyanosis. Good capillary refill. ASSESSMENT/PLAN 1. Vitamin B12 deficiency - ICD9: 266.2, ICD10: E53.8 (primary diagnosis) - VITAMIN B12 2. Iron deficiency anemia, unspecified iron deficiency anemia type - ICD9: 280.9, ICD10: D50.9 - IRON AND TIBC - FERRITIN - COMPLETE BLOOD COUNT AND DIFFERENTIAL - COMPREHENSIVE METABOLIC PANEL - VITAMIN B12 3. Protein-calorie malnutrition, unspecified severity (HCC) - ICD9: 263.9, ICD10: E46 She is able to maintain her weight very well, 4. Malignant neoplasm of upper-inner quadrant of left breast in female, estrogen receptor positive (HCC) - ICD9: 174.2, V86.0, ICD10: C50.212, Z17.0 She was stopped from Arimidex recently as she had finished her time on the medication 5. Major depressive disorder, recurrent, in partial remission (HCC) - ICD9: 296.35, ICD10: F33.41 Cannot tolerate medication so she is taking couseling and that has been helping her very well 6. Osteoporosis, unspecified osteoporosis type, unspecified pathological fracture presence - ICD9: 733.00, ICD10: M81.0 - Reviewed the need for Calcium and Vitamin D supplements and weight bearing exercise as tolerated 7. Mild cognitive disorder - ICD9: 294.9, ICD10: F09 She has reported that her memory is not as it was and she would like to have that evaluated Rochelle Hackett MD [facility] Discharge summary Author Vinh Colon [facility] January 23, 2024 4:08pm Note Date/Time January 23, 2024 2:27p [facility] Medical Records Department [address] [place] [address] Emergency Department Summary 01/23/24 MR#: [id number] Acct: [id number] Name: ROSANA MAKI Rep #:[id number] : 1940 83 From: Vinh Colon MD PCP: Dr. Rochelle Hackett MD Status:REG E R Location: ED HPI HPI - GI History of Present Illness Chief Complaint: Nausea/Vomiting Informant: patient and spouse/S.O. Abdominal Pain/Flank Pain Onset: Today Context: Gradual Onset Timing: Continuous Quality: Burning Current Severity: Mild Maximum Severity: Mild Worsened by: Nothing Nausea/Vomiting/Emesis GI Symptom: Positive for Nausea and Vomiting Onset: Today Quality: Positive for Nonbilious Severity: Mild Diarrhea/Melena/Hematochezia GI Symptom: Negative for Diarrhea, Melena or Hematochezia Associated Symptoms Associated Symptoms: Negative for Dysuria, Frequency, Hematuria or Urgency Narrative Narrative: 83-year-old female history of adrenal insufficiency, a flutter, irritable bowel. Patient states she has these episodes frequently where she gets nausea and vomiting gets dehydrated. Often her sodium will drop with it. She has had themmany times. Today it began around 10 AM. She denies any fever. No dysuria. Was treated for UTI several weeks ago is currently off antibiotics and having nosymptoms. No diarrhea or melena. Really no abdominal pain and some burning andsome mild cramping. She had a prior ovarian cyst removed years ago and her appendix. Prior similar symptoms: Yes Recent Illness/Hospitalization: Yes [facility] Medical History (Updated 01/23/24 @ 16:[address] 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) Breast pain, right Chronic diarrhea Chronic hyponatremia Compression fracture of L1 lumbar vertebra COVID-19 Diverticulitis GERD (gastroesophageal reflux disease) History of atrial flutter history of blood transfusion History of breast cancer IBS (irritable bowel syndrome) Lichen sclerosus Migraine Motion sickness Nonrheumatic mitral (valve) prolapse Osteopenia Osteopenia 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 Ovarian cyst Paroxysmal atrial fibrillation Paroxysmal atrial flutter SIADH (syndrome of inappropriate ADH production) TIA (transient ischemic attack) Home Medications Bilaterl knee high compression stockings (10-20) #2 ea 05/29/22 [Rx Last Taken Unknown] clobetasol 0.05 % topical cream 1 applic topical .COMPLEX #15 grams 08/05/22 [Rx Last Taken Unknown] calcium carbonate 600 mg PO DAILY 10/14/22 [History Last Taken Unknown] cholecalciferol (vitamin D3) 10 mcg (400 unit) capsule 2,000 unit PO DAILY supplement 10/14/22 [History Last Taken Unknown] esomeprazole magnesium 40 mg capsule,delayed release See Rx Instructions .Route .COMPLEX #90 caps 12/18/22 [Rx Last Taken Unknown] metoclopramide HCl 10 mg tablet (Reglan) 10 mg PO Q6H PRN nausea and vomiting 3 days #18 tabs 04/25/23 [Rx Last Taken Unknown] apixaban 5 mg tablet 5 mg PO BID #60 tabs 07/23/23 [Rx Last Taken Unknown] meclizine 25 mg tablet 25 mg PO TID PRN dizziness 3 days #9 tabs 08/29/23 [Rx Last Taken Unknown] fludrocortisone 0.1 mg tablet 0.05 mg (1/2 x 0.1 mg) .Route .COMPLEX #8 tabs 09/22/23 [Rx Last Taken Unknown] dofetilide 250 mcg capsule See Rx Instructions .Route .COMPLEX #180 caps 10/12/23 [Rx Last Taken Unknown] cranberry 500 mg capsule 500 mg PO BID 01/18/24 [History Last Taken Unknown] magnesium oxide 400 mg (241.3 mg magnesium) tablet 400 mg PO DAILY #90 tabs 01/21/24 [Rx Last Taken Unknown] metoprolol succinate 25 mg tablet,extended release 24 hr 25 mg PO .COMPLEX #135 tabs 01/21/24 [Rx Last Taken Unknown] ondansetron 4 mg disintegrating tablet 4 mg PO Q8H PRN PRN Nausea #10 tabs 01/23/24 [Rx Last Taken Unknown] Allergy/AdvReac Type Severity Reaction Status Date / Time cantaloupe Allergy Severe Anaphylaxis Verified 01/23/24 14:08 grass pollen Allergy Severe Unknown Verified 01/23/24 14:08 Penicillins Allergy Severe Anaphylaxis Verified 01/23/24 14:08 Sulfa (Sulfonamide Allergy Unknown Other Verified 01/23/24 14:08 Antibiotics) mold Allergy Unknown Verified 01/23/24 14:08 pollen extracts Allergy Unknown Verified 01/23/24 14:08 erythromycin base AdvReac Severe Unknown Verified 01/23/24 14:08 lansoprazole [From Prevacid] AdvReac Severe Nausea/Vom/ Verified 01/23/24 14:08 Diarrhea adhesive tape AdvReac Intermediate Rash Verified 01/23/24 14:08 Family History Father Unknown family medical history Mother Uterine cancer Thyroid disorder Kidney disease Hypertension CHF (congestive heart failure) Arthritis Surgical History H/O breast biopsy H/O left mastectomy H/O lymph node biopsy History of cataract surgery History of colonoscopy (05/2019) History of dilation and curettage History of esophagogastroduodenoscopy (EGD) (05/2019) History of left heart catheterization (09/2012) History of radiofrequency ablation (RFA) procedure for cardiac arrhythmia (08/2013) History of removal of ovarian cyst Social History household members: spouse Smoking Status: Never smoker alcohol intake: current alcohol intake frequency: holidays/special occasions only substance use type: does not use caffeine: Yes what type of physical activity do you participate in: walking and yoga frequency: 3-4 times per week seatbelt use: always do you feel safe at home: Yes additional social history: -Kylee Patient and are both retired ROS ROS ED ROS Narrative Nausea and vomiting. No diarrhea. No fever. Review of Systems ROS Unobtainable: Denies due to encephalopathy Constitutional Constitutional ED: Denies chills or fever(s) ENT ENT ED: Denies ear pain Cardiovascular Cardiovascular: Denies chest pain Respiratory/Chest Respiratory/Chest: Denies cough or dyspnea Gastrointestinal Gastrointestinal: Reports abdominal pain, nausea and vomiting; Denies constipation, diarrhea or melena Genitourinary Genitourinary ED: Denies dysuria or hematuria Musculoskeletal Musculoskeletal: Denies arthralgias or back pain Integumentary Denies abscess or Abrasions Neurologic Neurologic: Denies headache(s) Endocrine Endocrinology: Denies polydipsia Hematologic/Lymphatic Hematologic/Lymphatic: Denies easy bleeding Allergic/Immunologic Allergic/Immunologic ED: Denies mouth swelling, tongue swelling or urticaria EXAM Physical Exam Narrative Exam Narrative: 83-year-old female vital signs stable afebrile. Does not look septic toxic. Nodistress. at bedside. H EENT exam unremarkable. Moist mucous membranes. Pupils round react light. No facial droop. Normal speech. No trauma. Neck nontender. No lymphadenopathy. Lungs clear to auscultation bilaterally. Heart regular rhythm rate about 80 no murmur. Chest wall and ribsnontender. Abdomen soft, nontender, nondistended normal bowel sounds without peritoneal signs. No signs of obstruction. No distention. Soft. No localizing tenderness. No hernia or mass. Moving all 4 extremities. Nontenderno edema. Normal manager of regulatory affairs strength. Neurologically she is awake alert no focal motor deficits Const Vital Signs: 01/23/24 14:06 01/23/24 14:30 Temperature 96.2 F L Temperature Source Temporal Pulse Rate 84 Respiratory Rate 16 Blood Pressure 204/99 H 205/93 H Blood Pressure Mean 134 122 Pulse Ox 96 98 Oxygen Delivery Method Room Air Positive well nourished and well developed; Negative for obese, cachectic, contractures or unkempt General Appearance ED: well developed and NAD; Negative for unkempt, cachectic, contractures or pallor Nutritional Appearance: Negative for cachectic or obese HEENT Reports moist mucous membranes; Denies dry mucous membranes normocephalic and atraumatic; Negative for trauma or tenderness Mouth ED: No dry mucous membranes Mouth: No dry mucous membranes Eyes PERRL and EOMs intact bilaterally General Eye ED: Negative for pale conjunctiva, scleral icterus or other Neck no lymphadenopathy, supple and no JVD General: Negative for tenderness Carotids: Negative for other Lymph Lymphatic: Negative for other Resp normal respiratory effort and clear to auscultation bilaterally Effort and Inspection: Negative for respiratory distress Auscultation: Negative for rales, rhonchi or wheezes Cardio regular rate, regular rhythm, S1 normal heart sound, S2 normal heart sound and no murmurs Rate: Negative for bradycardia or tachycardic Rhythm: Negative for abnormal rhythm GI non-tender, non-distended and no masses Inspection: Negative for abdominal distention Auscultation: normoactive bowel sounds Palpation: soft; Negative for tender, guarding, rigid, hepatomegaly, splenomegaly, hernia, mass, pulsatile mass or rebound tenderness present Back/Spine no CVA tenderness General Back: Negative for CVA tenderness Cervical Spine: Negative for cervical spine tenderness Thoracic Spine / Upper Back: Negative for thoracic spinal tenderness Lumbar Spine / Lower Back: Negative for lumbar spinal tenderness Coccyx: Negative for other Extremity full ROM General Extremety ED: Negative for edema, tenderness or other findings General Extremity: Negative for edema or other findings Neuro CN's II-XII intact bilaterally, moves all extremities and no sensory deficits noted Sensorium / Orientation: alert, oriented to person, oriented to place and oriented to time; Negative for orientation impaired, confused, lethargic or stuporous Motor Exam: strength 5/5 throughout; Negative for general weakness or strength abnormal Psych mental status grossly normal and thought process normal Appearance: Negative for unkempt Attitude: No agitated Mood & Affect: Negative for depressed, anxious or tearful Skin no wounds General Skin Exam: Negative for jaundice or pallor Lesions: no lesions Rashes: no rashes Trauma: Negative for abrasion or other Nails: Negative for discolored MDM MDM MDM Narrative Medical decision making narrative: 83-year-old female with nausea and vomiting. Treated with IV fluids. IV Zofran. She does not need any pain medication. I do not think she needs any imaging. Her abdomen is benign and soft. There is no localizing tenderness or signs of obstruction. Screening labs to be obtained because she has had low sodium with this before. Repeat exam patient still having some nausea show given a dose of Reglan. She is obviously anxious. I offered her anxiety meds and she did not want anything. Her abdomen remains benign. Heart is regular rhythm. Her lungs are clear. Her exam is benign. Repeat exam patient is feeling better after her Reglan and at 4:05 PM. Abdomen remains benign. She is comfortable being discharged home. Outpatient follow-upor return if worse. History & Record Review Discussion w/independent historian: Patient Additional record(s) reviewed:: Prior inpatient record, Prior outpatient record,Prior ED visit, Prior labs and No prior records Lab Data Attestation: I reviewed the patient's lab results. Lab results narrative: CBC showed white count 5. H&H 11.6 and 34. History of anemia. Platelets 286. Electrolytes show sodium 128. Gap 9. Normal BUN 17 creatinine 0.8. Glucose 141. History of hyponatremia. Labs: Laboratory Results - last 24 hr 01/23/24 14:25 WBC 5.0 RBC 3.97 L Hgb 11.6 L Hct 34.7 L MCV 87.4 MCH 29.2 MCHC 33.4 RDW Std Deviation 46.9 H RDW Coeff of Idania 14.6 Plt Count 286 MPV 9.0 Immature Gran % (Auto) 0.200 Neut % (Auto) 63.4 Lymph % (Auto) 30.0 Huron % (Auto) 5.2 Eos % (Auto) 0.4 Baso % (Auto) 0.8 Absolute Neuts (auto) 3.2 Absolute Lymphs (auto) 1.51 Nucleated RBC % 0 Sodium 128 L Potassium 3.5 Chloride 94 L Carbon Dioxide 25.0 Anion Gap 9 BUN 17 Creatinine 0.85 Estim Creat Clear Calc 43.88 Est GFR (MDRD) Af Amer 83 Est GFR (MDRD) Non-Af 68 BUN/Creatinine Ratio 20.0 Glucose 141 H Calcium 9.0 Rhythm Strip Rhythm Strip: Sinus Rhythm Rate: 83 Ectopy: None EKG Initial EKG: Attestation: I personally reviewed and interpreted this EKG as follows: Interpretation: Sinus Rhythm Comments: Normal sinus rhythm rate 83. Incomplete right bundle branch block. First-degree AV block ID interval 234. Discharge Plan Triage Chief Complaint: Nausea/Vomiting ED Provider: Vinh Colon Dx/Rx/DC Orders Clinical Impression: History of adrenal insufficiency, Anxiety, History of atrial flutter, Nausea & vomiting Instructions: ED Vomiting (Adult) Prescriptions: New ondansetron 4 mg tablet,disintegrating 4 mg PO Q8H PRN PRN (Reason: Nausea) Qty: 10 0RF No Action (DME) Bilaterl knee high compression stockings (10-20) See Rx Instructions .Route .MEDSUPPLY Qty: 2 0RF Rx Instructions: As directed calcium carbonate 600 mg calcium (1,500 mg) tablet 600 mg PO DAILY fludrocortisone 0.1 mg tablet 0.05 mg .ROUTE .COMPLEX Qty: 8 5RF Rx Instructions: Take 1/2 tablet po every Thursday, Thursday and Thursday cranberry 500 mg capsule 500 mg PO BID Rx Instructions: administer with meals cholecalciferol (vitamin D3) 10 mcg (400 unit) capsule 2,000 unit PO DAILY meclizine 25 mg tablet 25 mg PO TID PRN (Reason: dizziness) 3 Days Qty: 9 0RF metoclopramide HCl [Reglan] 10 mg tablet 10 mg PO Q6H PRN (Reason: nausea and vomiting) 3 Days Qty: 18 0RF clobetasol 0.05 % cream 1 applic TOPICAL .COMPLEX Qty: 15 0RF Rx Instructions: 1 applic TOPICAL apply thin layer as directed bid X 2 weeks then daily X 2 weeks; apply thin layer; massage in to cover area esomeprazole magnesium 40 mg capsule,delayed release(DR/EC) See Rx Instructions .ROUTE .COMPLEX Qty: 90 3RF Dose Instruction: take 1 capsule by mouth daily Rx Instructions: take 1 capsule by mouth daily apixaban 5 mg tablet 5 mg PO BID Qty: 60 11RF dofetilide 250 mcg capsule See Rx Instructions .ROUTE .COMPLEX Qty: 180 3RF Dose Instruction: TAKE 1 CAPSULE EVERY 12 HOURS FOR ATRIAL FIBRILLATION Rx Instructions: TAKE 1 CAPSULE EVERY 12 HOURS FOR ATRIAL FIBRILLATION magnesium oxide 400 mg (241.3 mg magnesium) tablet 400 mg PO DAILY Qty: 90 3RF metoprolol succinate 25 mg tablet extended release 24 hr 25 mg PO .COMPLEX Qty: 135 3RF Rx Instructions: 1/2 tablet (12.5 mg) in the morning and a whole tablet (25 mg) at bedtime Primary Care Provider: Rochelle Hackett Referrals: Rochelle Hackett MD [Primary Care Provider] - 1-2 Days if not improving Activity Restrictions/Additional Instructions: Plenty of fluids and rest. Increase diet slowly as tolerated. Follow-up with your doctor as needed. Return if worse. Zofran as needed for nausea. Disposition Disposition: Home, Self Care What to do if you have Problems For any increased pain, shortness of breath, bleeding, nausea or vomiting, chestpain, or any unexpected problems, contact your Primary Care Provider. Call [facility] ([phone]) or report to the closest Emergency Room. Call 911 if necessary. 01/23/24 1608 <Electronically signed by Vinh Colon MD> Cosigner Signature (if applicable): CC: Dr. Rochelle Hackett MD ~ Signed [facility] Work Phone: 1(123) 732-952804-19-2024 Discharge summary Author Pito Davis [facility] January 01, 2024 10:02am Note Date/Time January 01, 2024 10: 02am [facility] Physical Therapy [facility] [address] [place] [address]. [address] [place] [address] / REHABILITATION SERVICES DISCHARGE SUMMARY MR#: [id number] Acct: [id number] Name: ROSANA MAKI Rep #: [id number] : 1940 83 From: Pito Davis PT, ATC Referring Dr.: Dr. Erick Blanca MD Status: REG RCR Insurance: MEDICARE PART A B [facility] INS Discharge Summary D/C summary: It has been my pleasure to treat ROSANA MAKI referred by Dr. Erick Blanca MD, with the diagnosis of Sarcopenia for a total of 29 visit(s). Discharge Date: Please see the following information for a summary of their discharge status. Subjective Subjective: I am a lot better now. I feel like I will always have some balance concerns, but I am more steady now Pain Right Knee: Pain Intensity (Out of 10): 2 Right Hip: Pain Intensity (Out of 10): 2 Overall Improvement % Improvement: 70 Objective Objective/Function: TU seconds FGA: MMT: B hip flex and knee flex= 4/5. All other measurements / Pt is now I with HEP Goals Goal 1:: Decrease TUG test score to 8 seconds to aid with community efficiency. Goal Progress: Goal Met Goal 2:: Increase FGA score x 3-5 points to aid with preventing future falls. Goal Progress: Goal Met Goal 3:: Increase B LE strength x 1 grade to aid with increased standing tolerance Goal Progress: Goal Met Goal 4:: I with HEP Goal Progress: Goal Met Plan Plan: Discharge to [facility] D/C Information d/c sentence: If there are questions or concerns regarding this patient's physical therapy, please feel free to call me at [phone]. Thank you for the referral of thispatient. Sincerely, Pito Davis, PT, ATC Balance/Gait/Functional tests Balance/Special Test Scores Functional Gait Assessment Score: 24 % Disability: 20.0000 Lower Extremity Functional Score: 49 Improvement % Improvement: 70 <Electronically signed by Pito Davis PT, ATC> 01/01/24 1002 CC: Dr. Rochelle Hackett MD; Dr. Erick Blanca MD ~ [facility] Signed [facility] Work Phone: 1(868) 139-714004-02-2024 History of Present illness Narrative* Juan Carlos Sara, JEAN-CLAUDE.BLUEPRINTING AND PHOTOCOPY SUPERVISOR - 12/15/2023 2:00 PM EDT SUBJECTIVE: There are no preventive care reminders to display for this patient. TERENCE Maki is a 83 year old female. PMH significant for ACTIVE PROBLEM LIST Irritable Bowel Syndrome Esophageal Reflux Unspecified Constipation Osteoarth NOS-L/Leg Palpitations Insomnia Hyponatremia Chronic Fatigue Disorder Paroxysmal Atrial Fibrillation (Hcc) Mitral Valve Prolapse Closed fracture of lumbar vertebra (HCC) Dizziness and Giddiness Pain in Joint, Lower Leg Right-Sided Low Back Pain With Right-Sided Sciatica Neck Pain Osteopenia Chronic Right Shoulder Pain Anxiety and Depression Malignant Neoplasm of Upper-Inner Quadrant of Breast in Female, Estrogen Receptor Positive (Hcc) Siadh (Syndrome of Inappropriate Adh Production) ([facility]) Chronic Pain of Right Knee Mild Cognitive Disorder Protein-Calorie Malnutrition, Unspecified Severity ([facility]) PCP: Rochelle Hackett MD Cardiology: [facility] Oncology: [facility]ology Neurology: Dr. lBanca She was seen by Irish Warren CNP November 02, 2023 for itchy and draining bellybutton and neurological difficulty of difficulty with speech and thought process. She noted dizziness. She was concerned regarding TIA symptoms. CT and ultrasound carotids ordered. Carotid ultrasound without blockage. The CT scan showed no short-term issues but did show signs of chronic change consistent with moderatemicrovascular ischemia. Small area consistent with a remote stroke. Results sent to neurologist office. Advised to follow-up with neurologist regarding symptoms. She was seen at [facility] for acute hyponatremia intractable nausea and vomiting on November 21, 2023. Presents for ER follow-up visit. She was seen at [facility] December 08, 2023 for UTI.She presented with symptoms of weakness and bodyaches that began the day prior to arrival which have progressively worsened. Negative for influenza RSV and COVID. Sodium decreased at 130, consistent with prior. Found to have UTI. Treated with Macrobid. Today notes feeling much improved. She had malaise and severe back and abdominal discomfort. No longer experiencing this. Dysuria: no Urgency: ongoing problem due to pelvic floor issues Frequency: no Fever: no Weakness: no Malaise:no Had PT for pelvic floor aches evaluation and exercises at [facility]. Notes she needs to complete these at home. She tried medications but could not tolerate. Last urogynecology appointment about 1 year ago. Review of Systems Constitutional: Negative. Genitourinary: Positive for frequency. Objective BP 145/81 Pulse 76 Resp 16 Wt 53.5 kg (118 lb) BMI 18.48 kg/m Physical Exam Vitals and nursing note reviewed. Constitutional: Appearance: Normal appearance. HENT: Head: Normocephalic and atraumatic. Eyes: Conjunctiva/sclera: Conjunctivae normal. Neck: Thyroid: No thyromegaly. Cardiovascular: Rate and Rhythm: Normal rate. Pulmonary: Effort: Pulmonary effort is normal. Musculoskeletal: Right lower leg: No edema. Left lower leg: No edema. Skin: General: Skin is warm and dry. Neurological: General: No focal deficit present. Mental Status: She is alert and oriented to person, place, and time. ALLERGIES Allergen Reactions Adhesive Tape (Selena* Rash Cantaloupe Erythromycin GI Upset Gemtesa [Vibegron] Diarrhea Grass Pollen Mold Penicillins Rash, Swelling Pollen Prevacid [Lansopraz* Diarrhea All PPIs tried have given her diarrhea. Sulfa (Sulfonamide * Pt uncertain if Sulfa allergy is accurate or not. famotidine (PEPCID) 20 mg tablet take 1 [...] 120mg 3 at night Stress, blood sugar, thyroid/hormones/adrenals/sleep/energy/toxins/muscles/constipation/asthma Work up to 3 capsules with meals at night - can cause loose stools metoprolol succinate ER (TOPROL XL) 25 mg 24 hr tablet Take half tablet in the morning and 1 tabletin the evening. anastrozole (ARIMIDEX) 1 mg tablet Take 1 [...] Take 1,000 Units by mouth once daily. esomeprazole (NEXIUM) 40 mg capsule Take 1 capsule by mouth daily before breakfast. 1/2 hr before meal. denosumab (PROLIA) 60 mg/mL Inject 60 mg subcutaneously one time only. Gets injection every 6 months PAST MEDICAL HISTORY Diagnosis Date Abnormality of [...] atrial flutter Unspecified constipation Vitamin D deficiency Social History Tobacco Use Smoking status: Never Smokeless tobacco: Never Vaping Use Vaping Use: Never used Substance Use Topics Alcohol use: Yes Alcohol/week: 1.0 standard drink of alcohol Types: 1 Glasses of Wine (5oz) per week Comment: 1 glass per week Drug use: No ASSESSMENT/PLAN: 1. Urinary incontinence, unspecified type - ICD9: 788.30, ICD10: R32 (primary diagnosis) - CONSULT TO FEMALE UROLOGY/URO GYNECOLOGY 2. Urinary tract infection without hematuria, site unspecified - ICD9: 599.0, ICD10: N39.0 UTI symptoms are resolved. Notes she does need to drink more fluids. Encouraged her to schedule follow-up with her senior trainer and complete pelvic floor exercises previously provided. Sara Rangel APRN.CNS. Medical Decision Making: Problems: Moderate: Acute illness with systemic symptoms Data: Unique source(s) for external note(s) reviewed: 1 Unique test result(s) reviewed: 3+ Risk: Moderate: Drug management Medical Decision Making Level: 4 - Moderate [facility] Discharge summary Author Marty Bassett [facility] November 22, 2023 2:45pm Note Date/Time November 22, 2023 12: 03pm [facility] Medical Records Department [address] [place] [address] Discharge Summary 11/22/23 1202 MR#: [id number] Acct: [id number] Name: ROSANA MAKI Rep #:[id number] : 1940 83 From: Marty meraz DO PCP: Dr. Rochelle Hackett MD Status:ADM I NO Location: [address] Providers Date of Admission: 11/21/23 Date of Discharge: 11/22/23 Primary Care Physician: Dr. Rochelle Hackett MD Reason For Visit: INTRACTABLE N/V Diagnosis Discharge Diagnosis (1) Acute hyponatremia: Status: Acute Code(s): E87.1 - Hypo-osmolality and hyponatremia (2) Intractable nausea and vomiting: Status: Acute Code(s): R11.2 - Nausea with vomiting, unspecified Medications at Discharge Home Medications Bilaterl knee high compression stockings (10-20) #2 ea 05/29/22 clobetasol 0.05 % topical cream 1 applic topical .COMPLEX #15 grams 08/05/22 calcium carbonate 600 mg calcium (1,500 mg) tablet 600 mg PO DAILY 10/14/22 cholecalciferol (vitamin D3) 10 mcg (400 unit) capsule 2,000 unit PO DAILY supplement 10/14/22 esomeprazole magnesium 40 mg capsule,delayed release See Rx Instructions .Route .COMPLEX #90 caps 12/18/22 magnesium oxide 400 mg (241.3 mg magnesium) tablet 400 mg PO DAILY #90 tabs 01/19/23 metoprolol succinate 25 mg tablet,extended release 24 hr 25 mg PO .COMPLEX #135 tabs 01/28/23 metoclopramide HCl 10 mg tablet (Reglan) 10 mg PO Q6H PRN nausea and vomiting 3 days #18 tabs 04/25/23 apixaban 5 mg tablet 5 mg PO BID #60 tabs 07/23/23 meclizine 25 mg tablet 25 mg PO TID PRN dizziness 3 days #9 tabs 08/29/23 fludrocortisone 0.1 mg tablet 0.05 mg (1/2 x 0.1 mg) .Route .COMPLEX #8 tabs 09/22/23 dofetilide 250 mcg capsule See Rx Instructions .Route .COMPLEX #180 caps 10/12/23 Hospital Course Operations None Procedures None Summary of Care Provided Minutes Spent on Discharge: 35 Hospital Course: Patient is an 83-year-old female who presented with [facility] ED on 11/21/2023 with nausea and vomiting and and acute on chronic hyponatremia. Short hospital course as noted below. Patient discharged home without any therapy needs in stable condition on 11/21. 1. Intractable nausea and vomiting, resolved ? Patient reported acute onset nausea with multiple episodes of vomiting on day of admission. Stated she felt nauseous while grocery shopping and then did not tolerate the car ride home well, which led to her having several episodes of vomiting. No further episodes of vomiting after arriving in the ED. ? Etiology unclear but likely due to external triggers. Patient tolerating regular diet prior to discharge. 2. Acute on chronic hyponatremia, improved; history of SIADH ? Sodium 126 on admit. Has known history of SIADH, follows with outpatient nephrology. Acute hyponatremia presumed secondary to dehydration in setting of GI losses. S/p 1 L normal saline bolus in ED, followed by another 1 L normal saline given on the floor over the course of 10 hours. Repeat sodium 131 on 11/21. ? Recommend repeat BMP in 5 to 7 days to assure continued stability or improvement of sodium level. Follow-up with outpatient neurology as needed. Chronic medical conditions: ? Paroxysmal A-fib: Continue home metoprolol, dofetilide and Eliquis. ? 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 Follows with oncology, continue outpatient follow-up. ? Adrenal insufficiency: Continue home fludrocortisone. ? GERD: Continue home PPI. Total clinical time spent by myself addressing the patient's medical issues, reviewing all the data, and collaborating with patient's care team: 35 minutes. Physical Exam Const alert, oriented x3 and no apparent distress Constitutional Narrative: Pleasant elderly female, thin appearing, somewhat chronically ill-appearing, laying comfortably in bed, conversing normally, no acute distress. General Appearance: cooperative and comfortable HEENT normocephalic, head/scalp atraumatic, hearing grossly normal bilaterally, nasal mucous membranes and turbinates normal and moist oral mucous membranes Eyes PERRL, EOMs intact bilaterally and conjunctivae normal Neck full ROM Chest inspection of chest normal Resp normal respiratory effort, normal air movement, no use of accessory muscles and clear to auscultation bilaterally Cardio regular rate, regular rhythm, no murmurs and peripheral pulses 2+ throughout GI normal to inspection, nondistended, normoactive bowel sounds, soft to palpation,non-tender and non-distended Back/Spine normal ROM Extremity normal to inspection, full ROM and no pedal edema Skin no rashes or lesions noted Neuro moves all extremities and no focal motor deficits Speech: speech normal Psych mental status grossly normal Weight / BMI Weight Weight: 52.3 kg Body Mass Index (BMI) 18.0 ABG / Lab / Microbiology Data 11/22/23 05:32 11/22/23 05:32 Laboratory: Laboratory Results - last 24 hr 11/21/23 19:55: WBC 4.8, RBC 4.19 L, Hgb 12.3, Hct 36.4 L, MCV 86.9, MCH 29.4, MCHC 33.8, RDW Std Deviation 44.6 H, RDW Coeff of Idania 14.0, Plt Count 278, MPV 8.9, Immature Gran % (Auto) 0.200, Neut % (Auto) 60.6, Lymph % (Auto) 32.0, Huron% (Auto) 6.2, Eos % (Auto) 0.4, Baso % (Auto) 0.6, Absolute Neuts (auto) 2.9, Absolute Lymphs (auto) 1.55, Nucleated RBC % 0, Sodium 126 L, Potassium 3.6, Chloride 94 L, Carbon Dioxide 23.0, Anion Gap 9, BUN 11, Creatinine 0.79, Estim Creat Clear Calc 45.81, Est GFR (MDRD) Af Amer 90, Est GFR (MDRD) Non-Af 74, BUN/Creatinine Ratio 13.9, Glucose 145 H, Calcium 8.5, Phosphorus 2.5, Magnesium2.1, Total Bilirubin 0.90, AST 20, ALT 21, Alkaline Phosphatase 78, Total Protein 7.3, Albumin 3.3, Globulin 4.0, Albumin/Globulin Ratio 0.8 L 11/21/23 21:20: Urine Color Yellow, Urine Clarity Clear, Urine pH 8.0, Ur Specific Bryant 1.015, Urine Protein 15 H, Urine Glucose (UA) 100 H, Urine Ketones 15 H, Urine Occult Blood 10 H, Urine Nitrite Negative, Urine Bilirubin Negative, Urine Urobilinogen Normal, Ur Leukocyte Esterase Negative, Urine RBC 0SEEN, Urine WBC 0 SEEN, Ur Squamous Epith Cells 0 SEEN, Urine Bacteria 0 SEEN, Urine Mucus 0 SEEN, Urine Osmolality 367, Ur Random Sodium 147 11/21/23 23:25: Procalcitonin 0.04 11/22/23 05:32: WBC 4.2 L, RBC 3.23 L, Hgb 9.6 L, Hct 28.8 L, MCV 89.2, MCH 29.7, MCHC 33.3, RDW Std Deviation 46.0 H, RDW Coeff of Idania 14.0, Plt Count 242,MPV 9.7, Immature Gran % (Auto) 0.200, Neut % (Auto) 61.5, Lymph % (Auto) 27.0, Huron % (Auto) 10.6 H, Eos % (Auto) 0.2, Baso % (Auto) 0.5, Absolute Neuts (auto)2.6, Absolute Lymphs (auto) 1.14, Nucleated RBC % 0, Sodium 131 L, Potassium 3.4L, Chloride 101, Carbon Dioxide 25.0, Anion Gap 5, BUN 9, Creatinine 0.73, EstimCreat Clear Calc 45.54, Est GFR (MDRD) Af Amer 98, Est GFR (MDRD) Non-Af 81, BUN/Creatinine Ratio 12.3, Glucose 110 H, Serum Osmolality 265 L, Calcium 7.1 L,Iron 65, TIBC 381, Iron Saturation 17.1, Ferritin 8, Total Bilirubin 0.60, AST 17, ALT 16, Alkaline Phosphatase 57, Total Protein 5.4 L, Albumin 2.5 L, Globulin 2.9, Albumin/Globulin Ratio 0.9, Folate 12.30 Microbiology: Microbiology 11/21/23 00:04 Mucosa - Nose Respiratory Panel (PCR) - Final Meaningful Use Info Meaningful Use Diagnoses (Choose all that apply): None applicable Discharge Plan Admission Admit Date/Time: 11/21/23 23:07 Primary Reason for Your Visit: Nausea and vomiting, dehydration Attending Provider: Marty Bassett Primary Care Provider: Rochelle Hackett Consulting Providers: Michelle Hunt Discharge Orders/Prescriptions Prescriptions: Continued (DME) Bilaterl knee high compression stockings (10-20) See Rx Instructions .Route .MEDSUPPLY Qty: 2 0RF Rx Instructions: As directed calcium carbonate 600 mg calcium (1,500 mg) tablet 600 mg PO DAILY magnesium oxide 400 mg (241.3 mg magnesium) tablet 400 mg PO DAILY Qty: 90 3RF fludrocortisone 0.1 mg tablet 0.05 mg .ROUTE .COMPLEX Qty: 8 5RF Rx Instructions: Take 1/2 tablet po every Thursday, Thursday and Thursday cholecalciferol (vitamin D3) 10 mcg (400 unit) capsule 2,000 unit PO DAILY meclizine 25 mg tablet 25 mg PO TID PRN (Reason: dizziness) 3 Days Qty: 9 0RF metoclopramide HCl [Reglan] 10 mg tablet 10 mg PO Q6H PRN (Reason: nausea and vomiting) 3 Days Qty: 18 0RF clobetasol 0.05 % cream 1 applic TOPICAL .COMPLEX Qty: 15 0RF Rx Instructions: 1 applic TOPICAL apply thin layer as directed bid X 2 weeks then daily X 2 weeks; apply thin layer; massage in to cover area esomeprazole magnesium 40 mg capsule,delayed release(DR/EC) See Rx Instructions .ROUTE .COMPLEX Qty: 90 3RF Dose Instruction: take 1 capsule by mouth daily Rx Instructions: take 1 capsule by mouth daily metoprolol succinate 25 mg tablet extended release 24 hr 25 mg PO .COMPLEX Qty: 135 3RF Rx Instructions: 1/2 tablet (12.5 mg) in the morning and a whole tablet (25 mg) at bedtime apixaban 5 mg tablet 5 mg PO BID Qty: 60 11RF dofetilide 250 mcg capsule See Rx Instructions .ROUTE .COMPLEX Qty: 180 3RF Dose Instruction: TAKE 1 CAPSULE EVERY 12 HOURS FOR ATRIAL FIBRILLATION Rx Instructions: TAKE 1 CAPSULE EVERY 12 HOURS FOR ATRIAL FIBRILLATION Referrals / Follow Up: Rochelle Hackett MD [Primary Care Provider] - Disposition Disposition (needs filled in before D/C Order can be placed): Home, Self Care Charges/Coding Visit Charges Inpatient E&M: 30572 Disch Hosp >30min 11/22/23 1445 <Electronically signed by Marty Bassett DO> Cosigner Signature (if applicable): CC: Dr. Marty Bassett DO; Dr. Rochelle Hackett MD~ Signed [facility] Work Phone: [phone]) 487-615103-10-2024 Discharge summary Author Marty Bassett [facility] November 22, 2023 1:27pm Note Date/Time November 22, 2023 12: 03pm [facility] Medical Records Department [address] [place] [address] Instructions for Home/Discharge Instructions 11/22/23 1202 MR#: [id number] Acct: [id number] Name: ROSANA MAKI Rep #:[id number] : 1940 83 From: Marty meraz DO PCP: Dr. Rochelle Hackett MD Status:ADM I NO Discharge Instructions Diet Discharge Diet: No restrictions Activity Discharge Activity: No Restrictions Weight Bearing Status: Full weight bearing Follow Up Care Test Results: Test results from this visit will be discussed in further detail at your follow- up appointment, if applicable. Discharge Plan Admission Admit Date/Time: 11/21/23 23:07 Primary Reason for Your Visit: Nausea and vomiting, dehydration Attending Provider: Marty Bassett Primary Care Provider: Rochelle Hackett Consulting Providers: Michelle Hunt Discharge Orders/Prescriptions Prescriptions: Continued (DME) Bilaterl knee high compression stockings (10-20) See Rx Instructions .Route .MEDSUPPLY Qty: 2 0RF Rx Instructions: As directed calcium carbonate 600 mg calcium (1,500 mg) tablet 600 mg PO DAILY magnesium oxide 400 mg (241.3 mg magnesium) tablet 400 mg PO DAILY Qty: 90 3RF fludrocortisone 0.1 mg tablet 0.05 mg .ROUTE .COMPLEX Qty: 8 5RF Rx Instructions: Take 1/2 tablet po every Thursday, Thursday and Thursday cholecalciferol (vitamin D3) 10 mcg (400 unit) capsule 2,000 unit PO DAILY meclizine 25 mg tablet 25 mg PO TID PRN (Reason: dizziness) 3 Days Qty: 9 0RF metoclopramide HCl [Reglan] 10 mg tablet 10 mg PO Q6H PRN (Reason: nausea and vomiting) 3 Days Qty: 18 0RF clobetasol 0.05 % cream 1 applic TOPICAL .COMPLEX Qty: 15 0RF Rx Instructions: 1 applic TOPICAL apply thin layer as directed bid X 2 weeks then daily X 2 weeks; apply thin layer; massage in to cover area esomeprazole magnesium 40 mg capsule,delayed release(DR/EC) See Rx Instructions .ROUTE .COMPLEX Qty: 90 3RF Dose Instruction: take 1 capsule by mouth daily Rx Instructions: take 1 capsule by mouth daily metoprolol succinate 25 mg tablet extended release 24 hr 25 mg PO .COMPLEX Qty: 135 3RF Rx Instructions: 1/2 tablet (12.5 mg) in the morning and a whole tablet (25 mg) at bedtime apixaban 5 mg tablet 5 mg PO BID Qty: 60 11RF dofetilide 250 mcg capsule See Rx Instructions .ROUTE .COMPLEX Qty: 180 3RF Dose Instruction: TAKE 1 CAPSULE EVERY 12 HOURS FOR ATRIAL FIBRILLATION Rx Instructions: TAKE 1 CAPSULE EVERY 12 HOURS FOR ATRIAL FIBRILLATION Referrals / Follow Up: Rochelle Hackett MD [Primary Care Provider] - Disposition Disposition (needs filled in before D/C Order can be placed): Home, Self Care 11/22/23 1327<Electronically signed by Marty Bassett DO>Marty Bassett DO CC: Dr. Michelle Hunt MD; Dr. Rochelle Hakcett MD ~ Signed [facility] Work Phone: [phone] Hospital Discharge instructions Additional Instructions Date of Discharge: 11/22/23[facility] Work Phone: [phone] Discharge summary Author [facility] November 22, 2023 12:07am Note Date/Time November 21, 2023 9:14 pm [facility] Medical Records Department [address] [place] [address] Emergency Department Summary 11/21/23 MR#: [id number] Acct: [id number] Name: ROSANA MAKI Rep #:[id number] : 1940 83 From: Viet Ortez DO PCP: Dr. Rochelle Hackett MD Status:ADM I NO Location: [place] [address]-1 HPI History of Present Illness Chief Complaint: Nausea/Vomiting Detail of Chief Complaint: Nausea and vomiting Informant: patient Narrative Narrative: Patient presents with nausea and vomiting that started today around noon. She denies any abdominal pain. She is thrown up about 12 times. She had dry heaves. She denies diarrhea. She denies chest pain or shortness of breath. She denies cough. She denies urinary symptoms. Patient has history of hyponatremia. History of a flutter. She denies sick contacts. [facility] Medical History (Updated 11/21/23 @ 23:[address] 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 Ovarian cyst Paroxysmal atrial fibrillation Paroxysmal atrial flutter SIADH (syndrome of inappropriate ADH production) TIA (transient ischemic attack) Home Medications Bilaterl knee high compression stockings (07-03) #2 ea 05/29/22 [Rx Last Taken Unknown] clobetasol 0.05 % topical cream 1 applic topical .COMPLEX #15 grams 08/05/22 [Rx Last Taken Unknown] calcium carbonate 600 mg calcium (1,500 mg) tablet 600 mg PO DAILY 10/14/22 [History Last Taken Unknown] cholecalciferol (vitamin D3) 10 mcg (400 unit) capsule 2,000 unit PO DAILY supplement 10/14/22 [History Last Taken Unknown] esomeprazole magnesium 40 mg capsule,delayed release See Rx Instructions .Route .COMPLEX #90 caps 12/18/22 [Rx Last Taken Unknown] magnesium oxide 400 mg (241.3 mg magnesium) tablet 400 mg PO DAILY #90 tabs 01/19/23 [Rx Last Taken Unknown] metoprolol succinate 25 mg tablet,extended release 24 hr 25 mg PO .COMPLEX #135 tabs 01/28/23 [Rx Last Taken Unknown] metoclopramide HCl 10 mg tablet (Reglan) 10 mg PO Q6H PRN nausea and vomiting 3 days #18 tabs 04/25/23 [Rx Last Taken Unknown] apixaban 5 mg tablet 5 mg PO BID #60 tabs 07/23/23 [Rx Last Taken Unknown] meclizine 25 mg tablet 25 mg PO TID PRN dizziness 3 days #9 tabs 08/29/23 [Rx Last Taken Unknown] fludrocortisone 0.1 mg tablet 0.05 mg (1/2 x 0.1 mg) .Route .COMPLEX #8 tabs 09/22/23 [Rx Last Taken Unknown] dofetilide 250 mcg capsule See Rx Instructions .Route .COMPLEX #180 caps 10/12/23 [Rx Last Taken Unknown] Allergy/AdvReac Type Severity Reaction Status Date / Time cantaloupe Allergy Severe Anaphylaxis Verified 11/21/23 19:35 grass pollen Allergy Severe Unknown Verified 11/21/23 19:35 Penicillins Allergy Severe Anaphylaxis Verified 11/21/23 19:35 Sulfa (Sulfonamide Allergy Unknown Other Verified 11/21/23 19:35 Antibiotics) mold Allergy Unknown Verified 11/21/23 19:35 pollen extracts Allergy Unknown Verified 11/21/23 19:35 erythromycin base AdvReac Severe Unknown Verified 11/21/23 19:35 lansoprazole [From Prevacid] AdvReac Severe Nausea/Vom/ Verified 11/21/23 19:35 Diarrhea adhesive tape AdvReac Intermediate Rash Verified 11/21/23 19:35 Family History Father Unknown family medical history Mother Uterine cancer Thyroid disorder Kidney disease Hypertension CHF (congestive heart failure) Arthritis Surgical History H/O breast biopsy H/O left mastectomy H/O lymph node biopsy History of cataract surgery History of colonoscopy (05/2019) History of dilation and curettage History of esophagogastroduodenoscopy (EGD) (05/2019) History of left heart catheterization (09/2012) History of radiofrequency ablation (RFA) procedure for cardiac arrhythmia (08/2013) History of removal of ovarian cyst Social History (Updated 11/21/23 @ 23:[address] Michelle Hunt MD) household members: spouse Smoking Status: Never smoker alcohol intake: current alcohol intake frequency: holidays/special occasions only substance use type: does not use caffeine: Yes what type of physical activity do you participate in: walking and yoga frequency: 3-4 times per week seatbelt use: always do you feel safe at home: Yes additional social history: -Kylee Patient and are both retired ROS ROS ED Review of Systems ROS Unobtainable: other Constitutional Constitutional ED: Reports lethargy; Denies chills, fever(s), sweats or weight loss Eyes Eyes: Denies blurry vision, change in vision or diplopia ENT ENT ED: Denies rhinorrhea or sore throat Cardiovascular Cardiovascular: Denies chest pain, orthopnea or racing heartbeat Respiratory/Chest Respiratory/Chest: Denies cough, dyspnea, dyspnea on exertion, orthopnea or sputum Gastrointestinal Gastrointestinal: Reports nausea and vomiting; Denies abdominal pain or diarrhea Genitourinary Genitourinary ED: Denies dysuria, hematuria or urinary frequency Musculoskeletal Musculoskeletal: Denies arthralgias, back pain, myalgias or neck pain Integumentary Denies abscess, Abrasions or rash Neurologic Neurologic: Denies headache(s) or weakness Psychiatric Psychiatric: Denies anxiety, depression or suicidal thoughts Endocrine Endocrinology: Denies polydipsia, polyphagia or polyuria Hematologic/Lymphatic Hematologic/Lymphatic: Denies easy bleeding, easy bruising or lymphadenopathy Allergic/Immunologic Allergic/Immunologic ED: Denies mouth swelling, tongue swelling or urticaria EXAM Physical Exam Const Vital Signs: 11/21/23 19:36 11/21/23 21:01 11/21/23 21:03 Temperature 96.4 F L Temperature Source Temporal Pulse Rate 81 78 Respiratory Rate 18 18 Blood Pressure 144/98 H 154/90 H Blood Pressure Mean 113 111 Pulse Ox 95 98 99 Oxygen Delivery Method Room Air Room Air Room Air 11/21/23 22:10 Temperature Temperature Source Pulse Rate 77 Respiratory Rate 16 Blood Pressure 143/76 H Blood Pressure Mean 98 Pulse Ox 97 Oxygen Delivery Method Room Air Positive well nourished and well developed General Appearance ED: well developed and NAD HEENT Reports TM's clear and dry mucous membranes; Denies moist mucous membranes normocephalic and atraumatic; Negative for trauma or tenderness Tympanic Membrane ED: Yes TM's clear Mouth ED: Yes dry mucous membranes Mouth: dry mucous membranes Eyes PERRL and EOMs intact bilaterally General Eye ED: Negative for pale conjunctiva or scleral icterus Neck no lymphadenopathy, supple and no JVD General: Negative for tenderness Chest Wall inspection of chest normal and palpation of chest normal Chest: Negative for tenderness Resp normal respiratory effort and clear to auscultation bilaterally Effort and Inspection: Negative for respiratory distress or pain with movement Auscultation: Negative for rhonchi, wheezes or diminished lung sounds Cardio regular rate, regular rhythm, S1 normal heart sound, S2 normal heart sound and no murmurs Peripheral Pulses: pulses 2+ throughout GI normal to inspection, nondistended, normoactive bowel sounds, soft to palpation,non-tender, non-distended and no masses Back/Spine no CVA tenderness and no thoracic nor lumbar tenderness Extremity normal to inspection General Extremety ED: Negative for edema General Extremity: Negative for edema Neuro oriented x3, CN's II-XII intact bilaterally, no sensory deficits noted and gait normal Sensorium / Orientation: awake, alert, oriented to person, oriented to place andoriented to time Motor Exam: strength 5/5 throughout and strength abnormal Psych mental status grossly normal Skin no rashes or lesions noted and no wounds MDM MDM MDM Narrative Medical decision making narrative: Patient presents with vomiting that started earlier today. Denies abdominal pain. Clinically looks dry. She has history of hyponatremia. IV line established. She was given a liter normal saline fluid bolus in triage as department was full and busy. Lab workup obtained showed WBC count of 4.8 with hemoglobin 12.3 and platelet count of 278. Chemistries were significant for sodium of 126 with potassium of 3.6 and chloride of 94. BUN was 11 and creatinine 0.79. Glucose 145. LFTs unremarkable. Urinalysis was normal. Patient was given Reglan and even after Reglan did have dry heaves. She continues to not feel well. Case will be discussed with hospitalist to evaluatepatient for an observation. And for hydration. Lab Data Attestation: I reviewed the patient's lab results. Labs: Laboratory Results - last 24 hr 11/21/23 11/21/23 19:55 21:20 WBC 4.8 RBC 4.19 L Hgb 12.3 Hct 36.4 L MCV 86.9 MCH 29.4 MCHC 33.8 RDW Std Deviation 44.6 H RDW Coeff of Idania 14.0 Plt Count 278 MPV 8.9 Immature Gran % (Auto) 0.200 Neut % (Auto) 60.6 Lymph % (Auto) 32.0 Huron % (Auto) 6.2 Eos % (Auto) 0.4 Baso % (Auto) 0.6 Absolute Neuts (auto) 2.9 Absolute Lymphs (auto) 1.55 Nucleated RBC % 0 Sodium 126 L Potassium 3.6 Chloride 94 L Carbon Dioxide 23.0 Anion Gap 9 BUN 11 Creatinine 0.79 Estim Creat Clear Calc 45.81 Est GFR (MDRD) Af Amer 90 Est GFR (MDRD) Non-Af 74 BUN/Creatinine Ratio 13.9 Glucose 145 H Calcium 8.5 Phosphorus 2.5 Magnesium 2.1 Total Bilirubin 0.90 AST 20 ALT 21 Alkaline Phosphatase 78 Total Protein 7.3 Albumin 3.3 Globulin 4.0 Albumin/Globulin Ratio 0.8 L Urine Color Yellow Urine Clarity Clear Urine pH 8.0 Ur Specific Bryant 1.015 Urine Protein 15 H Urine Glucose (UA) 100 H Urine Ketones 15 H Urine Occult Blood 10 H Urine Nitrite Negative Urine Bilirubin Negative Urine Urobilinogen Normal Ur Leukocyte Esterase Negative Urine RBC 0 SEEN Urine WBC 0 SEEN Ur Squamous Epith Cells 0 SEEN Urine Bacteria 0 SEEN Urine Mucus 0 SEEN EKG Initial EKG: Attestation: I personally reviewed and interpreted this EKG as follows: Comments: Sinus rhythm with ventricular rate of 75 bpm with incomplete right bundle branch block Discharge Plan Dx/Rx/DC Orders Clinical Impression: Intractable nausea and vomiting, History of atrial flutter, Acute hyponatremia Disposition Disposition: Acute Care Hospital [facility] What to do if you have Problems For any increased pain, shortness of breath, bleeding, nausea or vomiting, chestpain, or any unexpected problems, contact your Primary Care Provider. Call [facility] ([phone]) or report to the closest Emergency Room. Call 911 if necessary. 11/22/236 <Electronically signed by Viet Ortez DO> Cosigner Signature (if applicable): CC: Dr. Rochelle Hackett MD ~ Signed [facility] Work Phone: [phone] 351-133303-10-2024 History and physical note Author Michelle Hunt [facility] November 21, 2023 11:25pm Note Date/Time November 21, 2023 11:1 1pm [facility] Medical Records Department [address] [place] [address] H&P Exam - Hospitalist 11/21/232306 MR#: [id number] Acct: [id number] Name: ROSANA MAKI Rep #:[id number] : 1940 83 From: Michelle Hunt MD PCP: Dr. Rochelle Hackett MD Status:REG E R Location: ED HPI - General General Date of Admission: 11/21/23 Date of Service: 11/21/23 Chief Complaint: Intractable nausea/emesis. HPI Narrative The patient is an 83 y/o F w/ PMHx: Chronic diarrhea, PAF/Flutter, Chronic hyponatremia w/ chart reported history SIADH, Adrenal Insufficiency, Chronic migraines, Lichen sclerosis, GERD, Hx L Breast CA, Hx TIA who presents to the [facility] ED on 11/21/23 with history of onset intractable nausea and emesis eventually dry heaving only with inability to keep anything down with no associated abdominal cramping or pain and no diarrhea above her baseline with no recent upper respiratory symptoms but difficulty maintaining appropriate hydration prompting eventual ED evaluation. who is also present in the ED notes he has been well and has not been ill. They deny eating any abnormal foods recently and have been eating the same meals. Workup in the ED included T96.4, heart rate 81, BP 144/98, respiratory rate 18, 95% on room air, CBC with WBC 4.8, human 12.3, platelets 278 without marked shift, CMP with sodium 126, chloride 94, glucose 145 otherwise not marked appearing, urinalysis with no obvious evidence of UTI. In the ED patient ministered 1 L normal saline as wellas Reglan 10 mg IV x 1. [facility] Medical History (Updated 11/21/23 @ 23:[address] 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 Ovarian cyst Paroxysmal atrial fibrillation Paroxysmal atrial flutter SIADH (syndrome of inappropriate ADH production) TIA (transient ischemic attack) Home Medications Bilaterl knee high compression stockings (10-20) #2 ea 05/29/22 [Rx Last Taken Unknown] clobetasol 0.05 % topical cream 1 applic topical .COMPLEX #15 grams 08/05/22 [Rx Last Taken Unknown] calcium carbonate 600 mg calcium (1,500 mg) tablet 600 mg PO DAILY 10/14/22 [History Last Taken Unknown] cholecalciferol (vitamin D3) 10 mcg (400 unit) capsule 2,000 unit PO DAILY supplement 10/14/22 [History Last Taken Unknown] esomeprazole magnesium 40 mg capsule,delayed release See Rx Instructions .Route .COMPLEX #90 caps 12/18/22 [Rx Last Taken Unknown] magnesium oxide 400 mg (241.3 mg magnesium) tablet 400 mg PO DAILY #90 tabs 01/19/23 [Rx Last Taken Unknown] metoprolol succinate 25 mg tablet,extended release 24 hr 25 mg PO .COMPLEX #135 tabs 01/28/23 [Rx Last Taken Unknown] metoclopramide HCl 10 mg tablet (Reglan) 10 mg PO Q6H PRN nausea and vomiting 3 days #18 tabs 04/25/23 [Rx Last Taken Unknown] apixaban 5 mg tablet 5 mg PO BID #60 tabs 07/23/23 [Rx Last Taken Unknown] meclizine 25 mg tablet 25 mg PO TID PRN dizziness 3 days #9 tabs 08/29/23 [Rx Last Taken Unknown] fludrocortisone 0.1 mg tablet 0.05 mg (1/2 x 0.1 mg) .Route .COMPLEX #8 tabs 09/22/23 [Rx Last Taken Unknown] dofetilide 250 mcg capsule See Rx Instructions .Route .COMPLEX #180 caps 10/12/23 [Rx Last Taken Unknown] Allergy/AdvReac Type Severity Reaction Status Date / Time cantaloupe Allergy Severe Anaphylaxis Verified 11/21/23 19:35 grass pollen Allergy Severe Unknown Verified 11/21/23 19:35 Penicillins Allergy Severe Anaphylaxis Verified 11/21/23 19:35 Sulfa (Sulfonamide Allergy Unknown Other Verified 11/21/23 19:35 Antibiotics) mold Allergy Unknown Verified 11/21/23 19:35 pollen extracts Allergy Unknown Verified 11/21/23 19:35 erythromycin base AdvReac Severe Unknown Verified 11/21/23 19:35 lansoprazole [From Prevacid] AdvReac Severe Nausea/Vom/ Verified 11/21/23 19:35 Diarrhea adhesive tape AdvReac Intermediate Rash Verified 11/21/23 19:35 Family History Father Unknown family medical history Mother Uterine cancer Thyroid disorder Kidney disease Hypertension CHF (congestive heart failure) Arthritis Surgical History H/O breast biopsy H/O left mastectomy H/O lymph node biopsy History of cataract surgery History of colonoscopy (05/2019) History of dilation and curettage History of esophagogastroduodenoscopy (EGD) (05/2019) History of left heart catheterization (09/2012) History of radiofrequency ablation (RFA) procedure for cardiac arrhythmia (08/2013) History of removal of ovarian cyst Social History (Updated 11/21/23 @ 23:[address] Michelle Hunt MD) household members: spouse Smoking Status: Never smoker alcohol intake: current alcohol intake frequency: holidays/special occasions only substance use type: does not use caffeine: Yes what type of physical activity do you participate in: walking and yoga frequency: 3-4 times per week seatbelt use: always do you feel safe at home: Yes additional social history: -Kylee Patient and are both retired ROS ROS Narrative Admission Review of Systems: CONSTITUTIONAL: No weight loss, fever, chills, + weakness or fatigue. HEENT: Eyes: No visual loss, blurred vision, double vision or yellow sclerae. Ears, Nose, Throat: No hearing loss, sneezing, congestion, runny nose or sore throat. SKIN: No rash or itching, lesions, wounds. CARDIOVASCULAR: No chest pain, chest pressure or chest discomfort, palpitations,edema, orthopnea, syncopal events. RESPIRATORY: No shortness of breath, cough or sputum, wheezing, hemoptysis. GASTROINTESTINAL: + Anorexia, nausea, emesis. Chronic diarrhea but not any change from baseline. No abdominal pain, melena, BRBPR. GENITOURINARY: No dysuria, frequency, urgency or retention. NEUROLOGICAL: + Chronic debility, some chart reported history of disequilibrium. No headache, syncope, paralysis, ataxia, numbness or tingling in the extremities, focal weakness, change in bowel or bladder control, seizure. MUSCULOSKELETAL: + muscle, back pain, joint pain or stiffness. HEMATOLOGIC: No anemia. + Easy bleeding/bruising. LYMPHATICS: No enlarged nodes. No history of splenectomy. PSYCHIATRIC: No history of depression or anxiety. ENDOCRINOLOGIC: No reports of sweating, cold or heat intolerance. No polyuria orpolydipsia. ALLERGIES: + History of anaphylaxis. Vital Signs Vital Signs Vital Signs: 11/21/23 19:36 11/21/23 21:01 11/21/23 21:03 Temperature 96.4 F L Temperature Source Temporal Pulse Rate 81 78 Respiratory Rate 18 18 Blood Pressure 144/98 H 154/90 H Blood Pressure Mean 113 111 Pulse Ox 95 98 99 Oxygen Delivery Method Room Air Room Air Room Air 11/21/23 22:10 Temperature Temperature Source Pulse Rate 77 Respiratory Rate 16 Blood Pressure 143/76 H Blood Pressure Mean 98 Pulse Ox 97 Oxygen Delivery Method Room Air Weight Weight: 116 lb Body Mass Index (BMI) 18.1 Physical Exam Narrative Physical Examination: General: Awake, alert, oriented x 3 and cooperative, seated upright in the ED bed, fatigued, holding emesis bag but notes somewhat improved since initial ED arrival. Skin: Normal color, normal turgor, no icterus, no cyanosis. HEENT: AT/NC, EOMI, PERRLA, moderately dry MM, no carotid bruits or JVD noted. Lungs: CTA bilaterally, moderate effort, mild decrease BL bases, no rales, ronchi or wheezing. Heart: Regular rate and rhythm; no gallop, rub audible. Abdomen: Soft, NTTP, ND, mildly hyperactive BS, no appreciated HSM. Extremities: No cyanosis, clubbing, or edema. Neurological: Patient awake, alert, oriented as noted, cognitive function intact; pupils equally reactive to light and accommodation, cranial nerves II-XII grossly normal, moving all 4 extremities, no focal deficits, strength improving but remains moderately globally decreased secondary to acute presentation complaints. Psychiatric: Affect appears mildly flat, fatigued, no acute evidence of depressive or anxiety feelings. Results Lab / Micro Data 11/21/23 19:55 11/21/23 19:55 Labs: Laboratory Results - last 24 hr 11/21/23 19:55: WBC 4.8, RBC 4.19 L, Hgb 12.3, Hct 36.4 L, MCV 86.9, MCH 29.4, MCHC 33.8, RDW Std Deviation 44.6 H, RDW Coeff of Idania 14.0, Plt Count 278, MPV 8.9, Immature Gran % (Auto) 0.200, Neut % (Auto) 60.6, Lymph % (Auto) 32.0, Huron% (Auto) 6.2, Eos % (Auto) 0.4, Baso % (Auto) 0.6, Absolute Neuts (auto) 2.9, Absolute Lymphs (auto) 1.55, Nucleated RBC % 0, Sodium 126 L, Potassium 3.6, Chloride 94 L, Carbon Dioxide 23.0, Anion Gap 9, BUN 11, Creatinine 0.79, Estim Creat Clear Calc 45.81, Est GFR (MDRD) Af Amer 90, Est GFR (MDRD) Non-Af 74, BUN/Creatinine Ratio 13.9, Glucose 145 H, Calcium 8.5, Total Bilirubin 0.90, AST20, ALT 21, Alkaline Phosphatase 78, Total Protein 7.3, Albumin 3.3, Globulin 4.0, Albumin/Globulin Ratio 0.8 L 11/21/23 21:20: Urine Color Yellow, Urine Clarity Clear, Urine pH 8.0, Ur Specific Bryant 1.015, Urine Protein 15 H, Urine Glucose (UA) 100 H, Urine Ketones 15 H, Urine Occult Blood 10 H, Urine Nitrite Negative, Urine Bilirubin Negative, Urine Urobilinogen Normal, Ur Leukocyte Esterase Negative, Urine RBC 0SEEN, Urine WBC 0 SEEN, Ur Squamous Epith Cells 0 SEEN, Urine Bacteria 0 SEEN, Urine Mucus 0 SEEN Assessment & Plan Assessment/Plan (1) Acute hyponatremia: (2) Intractable nausea and vomiting: PLAN: Plan The patient is an 83 y/o F w/ PMHx: Chronic diarrhea, PAF/Flutter, Chronic hyponatremia w/ chart reported history SIADH, Adrenal Insufficiency, Chronic migraines, Lichen sclerosis, GERD, Hx L Breast CA, Hx TIA who presents to the [facility] ED on 11/21/23 with history of onset intractable nausea and emesis eventually dry heaving only with inability to keep anything down with no associated abdominal cramping or pain and no diarrhea above her baseline with no recent upper respiratory symptoms but difficulty maintaining appropriate hydration prompting eventual ED evaluation. #1. Intractable nausea and emesis, unclear exact etiology with acute on chronichyponatremia with history of SIADH, acute presentation with hypovolemic etiologygiven GI losses: Will admit to medical surgical floor, will continue judicious hydration, will obtain respiratory for viral panel be cautious, given no diarrhea will defer stool studies but if onset will obtain C. difficile and enteric to be cautious, suspect viral etiology, admission sodium to 126, chloride 94, baseline sodium primarily in the low 1 30-1 31 range but does vacillate lower, will continue home PPI, will allow clear liquids and advance diet as tolerated, maintain on fall precautions, PT/OT/case management consultedfor discharge planning. #2. Hyperglycemia: Mild, admission glucose 145, likely stress response given acute presentation #1, if repeat CMP in a.m. with elevated glucose low thresholdto obtain he will A1c and further investigate. #3. PAF/flutter: Patient status post RFA, we will continue patient home metoprolol, dofetilide as well as Eliquis regimen. #4. Lichen sclerosus: Patient outpatient chronically on clobetasol topical cream, need to clarify if she is currently using or if is in a period of remission. #5. 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 #6. History of TIA: We will continue patient on apixaban, hypertensive regimen as noted, further investigation of hyperglycemia as noted, not on statin therapy. #7. Chart reported history of chronic diarrhea: Noted in history also in recentoncology notes, patient denies any diarrhea that is worsened above baseline withcurrent presentation, will continue to closely monitor, loperamide if appropriate. #8. Chronic adrenal insufficiency: We will continue patient home fludrocortisone regimen. #9. GERD: We will continue patient on PPI. #10. DVT prophylaxis: The patient home apixaban regimen. #11. CODE status: Patient PASCUAL is her who is present and living will is currently in place. Discussed CODE status at length including difference between FULL code, DNR-CCA and DNR-CC status. Following discussions about the differences in these status, requested Full Code. Both patient and asked several questions regarding what happens to the body with codes and prognosis. Advanced Care Planning Face to Face Time: 16 minutes. Charges/Coding Visit Charges Inpatient E&M: 83275 Init Hosp L2 Procedures Hospitalists Procedures: 84766 Advncd Care Plan 30 Min 11/21/23 7571 <Electronically signed by Michelle Hunt MD> Cosigner Signature (if applicable): CC: Dr. Michelle Hunt MD; Dr. Rochelle Hackett MD~ Signed [facility] Work Phone: [phone]) [phone] Discharge summary Author Viet Ortez [facility] November 22, 2023 12:07am Note Date/Time November 21, 2023 9:14 pm [facility] Medical Records Department [address] [place] [address] Emergency Department Summary 11/21/23 MR#: [id number] Acct: [id number] Name: ROSANA MAKI Rep #:[id number] : 1940 83 From: Viet Ortez DO PCP: Dr. Rochelle Hackett MD Status:ADM I NO Location: [place] [address] HPI History of Present Illness Chief Complaint: Nausea/Vomiting Detail of Chief Complaint: Nausea and vomiting Informant: patient Narrative Narrative: Patient presents with nausea and vomiting that started today around noon. She denies any abdominal pain. She is thrown up about 12 times. She had dry heaves. She denies diarrhea. She denies chest pain or shortness of breath. She denies cough. She denies urinary symptoms. Patient has history of hyponatremia. History of a flutter. She denies sick contacts. [facility] Medical History (Updated 11/21/23 @ 23:[address] 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 Ovarian cyst Paroxysmal atrial fibrillation Paroxysmal atrial flutter SIADH (syndrome of inappropriate ADH production) TIA (transient ischemic attack) Home Medications Bilaterl knee high compression stockings (10-20) #2 ea 05/29/22 [Rx Last Taken Unknown] clobetasol 0.05 % topical cream 1 applic topical .COMPLEX #15 grams 08/05/22 [Rx Last Taken Unknown] calcium carbonate 600 mg calcium (1,500 mg) tablet 600 mg PO DAILY 10/14/22 [History Last Taken Unknown] cholecalciferol (vitamin D3) 10 mcg (400 unit) capsule 2,000 unit PO DAILY supplement 10/14/22 [History Last Taken Unknown] esomeprazole magnesium 40 mg capsule,delayed release See Rx Instructions .Route .COMPLEX #90 caps 12/18/22 [Rx Last Taken Unknown] magnesium oxide 400 mg (241.3 mg magnesium) tablet 400 mg PO DAILY #90 tabs 01/19/23 [Rx Last Taken Unknown] metoprolol succinate 25 mg tablet,extended release 24 hr 25 mg PO .COMPLEX #135 tabs 01/28/23 [Rx Last Taken Unknown] metoclopramide HCl 10 mg tablet (Reglan) 10 mg PO Q6H PRN nausea and vomiting 3 days #18 tabs 04/25/23 [Rx Last Taken Unknown] apixaban 5 mg tablet 5 mg PO BID #60 tabs 07/23/23 [Rx Last Taken Unknown] meclizine 25 mg tablet 25 mg PO TID PRN dizziness 3 days #9 tabs 08/29/23 [Rx Last Taken Unknown] fludrocortisone 0.1 mg tablet 0.05 mg (1/2 x 0.1 mg) .Route .COMPLEX #8 tabs 09/22/23 [Rx Last Taken Unknown] dofetilide 250 mcg capsule See Rx Instructions .Route .COMPLEX #180 caps 10/12/23 [Rx Last Taken Unknown] Allergy/AdvReac Type Severity Reaction Status Date / Time cantaloupe Allergy Severe Anaphylaxis Verified 11/21/23 19:35 grass pollen Allergy Severe Unknown Verified 11/21/23 19:35 Penicillins Allergy Severe Anaphylaxis Verified 11/21/23 19:35 Sulfa (Sulfonamide Allergy Unknown Other Verified 11/21/23 19:35 Antibiotics) mold Allergy Unknown Verified 11/21/23 19:35 pollen extracts Allergy Unknown Verified 11/21/23 19:35 erythromycin base AdvReac Severe Unknown Verified 11/21/23 19:35 lansoprazole [From Prevacid] AdvReac Severe Nausea/Vom/ Verified 11/21/23 19:35 Diarrhea adhesive tape AdvReac Intermediate Rash Verified 11/21/23 19:35 Family History Father Unknown family medical history Mother Uterine cancer Thyroid disorder Kidney disease Hypertension CHF (congestive heart failure) Arthritis Surgical History H/O breast biopsy H/O left mastectomy H/O lymph node biopsy History of cataract surgery History of colonoscopy (05/2019) History of dilation and curettage History of esophagogastroduodenoscopy (EGD) (05/2019) History of left heart catheterization (09/2012) History of radiofrequency ablation (RFA) procedure for cardiac arrhythmia (08/2013) History of removal of ovarian cyst Social History (Updated 11/21/23 @ 23:[address] Michelle Hunt MD) household members: spouse Smoking Status: Never smoker alcohol intake: current alcohol intake frequency: holidays/special occasions only substance use type: does not use caffeine: Yes what type of physical activity do you participate in: walking and yoga frequency: 3-4 times per week seatbelt use: always do you feel safe at home: Yes additional social history: -Kylee Patient and are both retired ROS ROS ED Review of Systems ROS Unobtainable: other Constitutional Constitutional ED: Reports lethargy; Denies chills, fever(s), sweats or weight loss Eyes Eyes: Denies blurry vision, change in vision or diplopia ENT ENT ED: Denies rhinorrhea or sore throat Cardiovascular Cardiovascular: Denies chest pain, orthopnea or racing heartbeat Respiratory/Chest Respiratory/Chest: Denies cough, dyspnea, dyspnea on exertion, orthopnea or sputum Gastrointestinal Gastrointestinal: Reports nausea and vomiting; Denies abdominal pain or diarrhea Genitourinary Genitourinary ED: Denies dysuria, hematuria or urinary frequency Musculoskeletal Musculoskeletal: Denies arthralgias, back pain, myalgias or neck pain Integumentary Denies abscess, Abrasions or rash Neurologic Neurologic: Denies headache(s) or weakness Psychiatric Psychiatric: Denies anxiety, depression or suicidal thoughts Endocrine Endocrinology: Denies polydipsia, polyphagia or polyuria Hematologic/Lymphatic Hematologic/Lymphatic: Denies easy bleeding, easy bruising or lymphadenopathy Allergic/Immunologic Allergic/Immunologic ED: Denies mouth swelling, tongue swelling or urticaria EXAM Physical Exam Const Vital Signs: 11/21/23 19:36 11/21/23 21:01 11/21/23 21:03 Temperature 96.4 F L Temperature Source Temporal Pulse Rate 81 78 Respiratory Rate 18 18 Blood Pressure 144/98 H 154/90 H Blood Pressure Mean 113 111 Pulse Ox 95 98 99 Oxygen Delivery Method Room Air Room Air Room Air 11/21/23 22:10 Temperature Temperature Source Pulse Rate 77 Respiratory Rate 16 Blood Pressure 143/76 H Blood Pressure Mean 98 Pulse Ox 97 Oxygen Delivery Method Room Air Positive well nourished and well developed General Appearance ED: well developed and NAD HEENT Reports TM's clear and dry mucous membranes; Denies moist mucous membranes normocephalic and atraumatic; Negative for trauma or tenderness Tympanic Membrane ED: Yes TM's clear Mouth ED: Yes dry mucous membranes Mouth: dry mucous membranes Eyes PERRL and EOMs intact bilaterally General Eye ED: Negative for pale conjunctiva or scleral icterus Neck no lymphadenopathy, supple and no JVD General: Negative for tenderness Chest Wall inspection of chest normal and palpation of chest normal Chest: Negative for tenderness Resp normal respiratory effort and clear to auscultation bilaterally Effort and Inspection: Negative for respiratory distress or pain with movement Auscultation: Negative for rhonchi, wheezes or diminished lung sounds Cardio regular rate, regular rhythm, S1 normal heart sound, S2 normal heart sound and no murmurs Peripheral Pulses: pulses 2+ throughout GI normal to inspection, nondistended, normoactive bowel sounds, soft to palpation,non-tender, non-distended and no masses Back/Spine no CVA tenderness and no thoracic nor lumbar tenderness Extremity normal to inspection General Extremety ED: Negative for edema General Extremity: Negative for edema Neuro oriented x3, CN's II-XII intact bilaterally, no sensory deficits noted and gait normal Sensorium / Orientation: awake, alert, oriented to person, oriented to place andoriented to time Motor Exam: strength 5/5 throughout and strength abnormal Psych mental status grossly normal Skin no rashes or lesions noted and no wounds MDM MDM MDM Narrative Medical decision making narrative: Patient presents with vomiting that started earlier today. Denies abdominal pain. Clinically looks dry. She has history of hyponatremia. IV line established. She was given a liter normal saline fluid bolus in triage as department was full and busy. Lab workup obtained showed WBC count of 4.8 with hemoglobin 12.3 and platelet count of 278. Chemistries were significant for sodium of 126 with potassium of 3.6 and chloride of 94. BUN was 11 and creatinine 0.79. Glucose 145. LFTs unremarkable. Urinalysis was normal. Patient was given Reglan and even after Reglan did have dry heaves. She continues to not feel well. Case will be discussed with hospitalist to evaluatepatient for an observation. And for hydration. Lab Data Attestation: I reviewed the patient's lab results. Labs: Laboratory Results - last 24 hr 11/21/23 11/21/23 19:55 21:20 WBC 4.8 RBC 4.19 L Hgb 12.3 Hct 36.4 L MCV 86.9 MCH 29.4 MCHC 33.8 RDW Std Deviation 44.6 H RDW Coeff of Idania 14.0 Plt Count 278 MPV 8.9 Immature Gran % (Auto) 0.200 Neut % (Auto) 60.6 Lymph % (Auto) 32.0 Huron % (Auto) 6.2 Eos % (Auto) 0.4 Baso % (Auto) 0.6 Absolute Neuts (auto) 2.9 Absolute Lymphs (auto) 1.55 Nucleated RBC % 0 Sodium 126 L Potassium 3.6 Chloride 94 L Carbon Dioxide 23.0 Anion Gap 9 BUN 11 Creatinine 0.79 Estim Creat Clear Calc 45.81 Est GFR (MDRD) Af Amer 90 Est GFR (MDRD) Non-Af 74 BUN/Creatinine Ratio 13.9 Glucose 145 H Calcium 8.5 Phosphorus 2.5 Magnesium 2.1 Total Bilirubin 0.90 AST 20 ALT 21 Alkaline Phosphatase 78 Total Protein 7.3 Albumin 3.3 Globulin 4.0 Albumin/Globulin Ratio 0.8 L Urine Color Yellow Urine Clarity Clear Urine pH 8.0 Ur Specific Bryant 1.015 Urine Protein 15 H Urine Glucose (UA) 100 H Urine Ketones 15 H Urine Occult Blood 10 H Urine Nitrite Negative Urine Bilirubin Negative Urine Urobilinogen Normal Ur Leukocyte Esterase Negative Urine RBC 0 SEEN Urine WBC 0 SEEN Ur Squamous Epith Cells 0 SEEN Urine Bacteria 0 SEEN Urine Mucus 0 SEEN EKG Initial EKG: Attestation: I personally reviewed and interpreted this EKG as follows: Comments: Sinus rhythm with ventricular rate of 75 bpm with incomplete right bundle branch block Discharge Plan Dx/Rx/DC Orders Clinical Impression: Intractable nausea and vomiting, History of atrial flutter, Acute hyponatremia Disposition Disposition: Acute Care Hospital [facility] What to do if you have Problems For any increased pain, shortness of breath, bleeding, nausea or vomiting, chestpain, or any unexpected problems, contact your Primary Care Provider. Call [facility] ([phone]) or report to the closest Emergency Room. Call 911 if necessary. 11/22/23 0007 <Electronically signed by Viet Ortez DO> Cosigner Signature (if applicable): CC: Dr. Rochelle Hackett MD ~ Signed [facility] Work Phone: [phone]) 531-774303-05-2024 History of Present illness Narrative* Kelly Balderrama RT(R) - 11/17/2023 2:20 PM EST Radiology Service Progress Note PATIENT NAME: Rosana Maki DATE OF SERVICE: November 17, 2023 TIME: 3:01 PM PATIENT IDENTITY VERIFICATION COMPLETED USING TWO (2) IDENTIFIERS: Name and Date of confirmedby patient verbally. FALL SCREENING: Has the patient had 2 falls in the last year or 1 fall with injury or currently using an Ambulatory Assistive Device (Walker, Cane, Wheelchair, Crutches, etc.)? No PATIENT GENDER DATA: Female. status: : No status: NO. PATIENT RELEVANT IMPLANT DATA REVIEWED: Yes PATIENT PRESENTS WITH AN IMPLANTABLE OR ATTACHED ROPE TOW OPERATOR: No RADIOLOGY DEPARTMENT: CT; Exam(s) Completed: Brain PERIPHERAL IV DATA: Not applicable SIGNED BY: RT Sara(R) November 17, 2023 3:01 PM [facility] History of Present illness Narrative* Irish Warren APRN.FLIGHT [employer]LLOWER - 11/02/2023 3:21 PM EST SUBJECTIVE Rosana Maki is a 83 year old female here today for a check up on her medical problems. Chief Complaint Patient presents with: Belly button infection: Smelly and itchy drainage Neurologic Problem: Difficulty speaking at times, thought process HPI Rosana Maki is a 83 year old female. She is an established patient of Rochelle Hackett MD. Here today for concerns of an infection to her belly button and also notices some issues with her speaking and thought process at times. She did recently see Al Nichole APRN and had discussed dizziness. Rosana does see Dr. Blanca with neurology with [facility]. She is wondering if she is having mini-strokes. Eventsoccur several minutes. She was trying to explain something and had the wrong words coming out. Thishappened a second time, both times in the evenings and when tired. No issues with a weakness to herarms or legs, no recent balance issues or [...] 120mg 3 at night Stress, blood sugar, thyroid/hormones/adrenals/sleep/energy/toxins/muscles/constipation/asthma Work up to 3 capsules with meals at night - can cause loose stools metoprolol succinate ER (TOPROL XL) 25 mg 24 hr tablet Take half tablet in the morning and 1 tabletin the evening. esomeprazole (NEXIUM) 40 mg capsule [...] (A priority) Comment: No anticoagulation. (2013: CHADS2=0. [id number]=0) On eliquis currently. She has no trouble [...] Protein-Calorie Malnutrition, Unspecified Severity ([facility]) - 01/14/2023 Mild Cognitive Disorder - 11/27/2020 Chronic Pain of Right Knee - 10/06/2018 Siadh (Syndrome of Inappropriate Adh Production) ([facility]) - 03/09/2018 Comment: Dx: 2013 she is on salt tablets and she has to limit her water content to 64 units a day. 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 She is done with the actonel for a life time. Neck Pain - 08/16/2015 Right-Sided Low Back Pain With Right-Sided Sciatica - 07/24/2015 Pain in Joint, Lower Leg - 04/27/2014 Dizziness and Giddiness - 03/08/2013 Closed fracture of lumbar vertebra (HCC) - 10/18/2012 Comment: Strong family history of [...] from today's visit and in agreement with treatmentplan. Questions answered. Agrees to call the office [...] as well as compliance with taking medications. Age- appropriate health preventative measures were discussed. Return if symptoms worsen or fail to improve, for Keep next scheduled appointment.. Irish Warren APRN-NIKO documented in this encounterAd[facility]02-19-[facility]24 Miscellaneous Notes* Telephone Encounter - Grace Burgos RN - 11/02/2023 2:45 PM EST Pt calling in with 2 problems. First she states she thinks she has an infected belly button. Has been trying to treat it with hydrogen peroxide. Second problem is that she states twice in the past week and a half, she had episodes where she couldn't talk. She was desperately looking for words but when she did speak other words came out. These two episodes last about 3 mins or so. States it was very scary for her. She couldn't say what shewas thinking. Pt instructed if anything like this happens, she needs to call 911 right away. Pt given an appt for this afternoon with Irish Warren for 40 mins. Spoke with Mala. documented in this encounterAdams [facility]02-16-[facility]24 History of Present illness Narrative* Carlos Sheth MD - 10/30/2023 2:09 PM EST HISTORY AND PHYSICAL Rosana Maki 1940 REFERRING PHYSICIAN: Tomeka Ascencio, FLIGHT FOLLOWER [address] [address] CHIEF COMPLAINT: No chief complaint on file. [...] in the left breast confirmed on biopsy bradley an invasive ductal cancer. On April 17, 2017 she underwent left mastectomy with sentinel lymph node biopsy by Dr. Sheth. 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 Resection margin was negative at 10 mm and no metastatic cancer was detected in 3 dissected sentinel lymph nodes. She has made a non-complicated recoveryfrom her surgery. Most recent mammogram showed only a single calcification in the right breast. She has been complaining of some breast pain in the medial aspect of her right breast. The patient is being seen by me today at the request of Dr. Rochelle Hackett MD for my opinion and advice [...] 120mg 3 at night Stress, blood sugar, thyroid/hormones/adrenals/sleep/energy/toxins/muscles/constipation/asthma Work up to 3 capsules with meals at night - can cause loose stools metoprolol succinate ER (TOPROL XL) 25 mg 24 hr tablet Take half tablet in the morning and 1 tabletin the evening. esomeprazole (NEXIUM) 40 mg capsule [...] entered by the nurse and reviewed by ca Nursing Notes: Taryn Altamirano RN 10/30/2023 2:15 PM Signed REVIEW OF SYSTEMS: General: The patient NOTES fatigue, denies weight loss, denies weight gain, denies feeling hot, andNOTES feelings of cold. Eyes: The patient denies [...] nourished, well hydrated in no acute distress. Thepatient is oriented to time, place, and person. VITALS: There were no vitals taken for this visit. HEENT: Normal cephalic, ataumatic, pupils are equally round, sclera are anicteric, mucous membranesare moist, oropharynx is clear. Neck has no [...] to follow-up with me as needed. Carlos Sheth III, MD documented in this encounterAdams [facility] Hospital02-16-2024 Nurse Note* Taryn Altamirano RN - 10/30/2023 2:09 PM EST REVIEW OF SYSTEMS: General: The patient NOTES fatigue, denies weight loss, denies weight gain, denies feeling hot, andNOTES feelings of cold. Eyes: The patient denies [...] 2018 Taryn Altamirano RN documented in this encounterAdams [facility] Hospital02-09-2024 Miscellaneous Notes* Telephone Encounter - Devi Lowe LPN - 10/23/2023 11:43 AM EST [place] with Dr. Lopez's office called for [facility] Pt will be having colonoscopy there. Identified pt with name and date of . FAX: [phone]. Done. documented in this encounterAdams [facility] Hospital02-06-2024 Miscellaneous Notes* Telephone Encounter - Yamilet Dotson RN - 10/20/2023 2:41 PM EST Patient calling and requesting Gastroenterology referral information be faxed to Dr. Lopez's office. Faxed as requested to [phone] Yamilet Dotson RN documented in this encounterAdams [facility] Hospital12-04-2023 History of Present illness Narrative* Maggi Mcdaniel PA-C - 08/17/2023 8:42 AM ESTAssociated Order(s): Large Joint Arthro/Inj: R knee joint Post-Procedure Diagnose(s): Primary osteoarthritis of right knee; Chronic pain of right knee Large Joint Arthro/Inj: R knee joint Informed Consent Consent Obtained: Verbal [place] Protocol A moment to CARE was completed. [...] equipment, possible retained foreign bodies accounted for. * Mari Conti Ma - 08/17/2023 8:27 AM EST Patient presents with: Right Knee - Injections Euflexxa injection # 2 right knee AMB ROOMING INTAKE FLOWSHEET DATA Pain Pain Level: 4 Pain Location: Knee-Right Description: Sharp, Dull, Aching Duration Amount of Time: (Ongoing) Frequency: Intermittent (Occurs with weight bearing) Intervention/Comfort measure: Medication Patient here for Euflexxa injection # 2 right knee LOT # [id number] EXP 08/09/2024 Taking Tylenol when needed for the pain. Mari Conti Ma documented in this encounterAdams [facility] Hospital11-27-2023 History of Present illness Narrative* Jennifer Hardin RN - 08/10/2023 9:53 AM EST Euflexxa Injection Right knee LOT # [id number] EXP 2024-06-22 Jennifer Hardin RN * Jatinder Vick MD - 08/10/2023 9:31 AM ESTAssociated Order(s): Large Joint Arthro/Inj: R knee joint Post-Procedure Diagnose(s): Chronic pain of right knee; Primary osteoarthritis of right knee Jatinder Vick MD Department of Orthopaedics Orthopaedics [address] [place] [id number] Dept: [phone] Dept August 10, 2023 CHIEF COMPLAINT: Follow Up and Knee Pain of the Right Knee and Last seen by Maggi on 08/11/22 withMaggi (OA right knee with series of Euflexxa injection given) HPI Patient here for evaluation right knee pain. Had series of Euflexxa injections given by Maggi lastyear. Patient states they helped for about 6-8 months. Would like injections today. New X-ray done today. ASSESSMENT: M17.11 Primary osteoarthritis of right knee (primary encounter diagnosis) M25.561, G89.29 Chronic pain of right knee PLAN: Repeat Euflexxa Ms. Rosana Maki was advised as to contrast therapies and/or to take analgesics/anti-inflammatories as needed and all contraindications were reviewed. OBJECTIVE: Ms. Rosana Maki is a pleasant 83 year old in [...] knee joint Informed Consent Consent Obtained: Verbal [place] Protocol A moment to CARE was completed. [...] 120mg 3 at night Stress, blood sugar, thyroid/hormones/adrenals/sleep/energy/toxins/muscles/constipation/asthma Work up to 3 capsules with meals at night - can cause loose stools metoprolol succinate ER (TOPROL XL) 25 mg 24 hr tablet Take half tablet in the morning and 1 tabletin the evening. esomeprazole (NEXIUM) 40 mg capsule [...] (see HPI) Psych (no depression, anxiety) Jatinder Vick MD documented in this encounterAdams [facility] Hospital11-09-2023 Miscellaneous Notes* Telephone Encounter - Yamilet Dotson RN - 07/23/2023 8:48 AM EST Triage Protocol Recommended: ER now. Pt agreeable. [...] SYMPTOMS: no 10. :post menopausal Protocols used: [id number] documented in this encounterAdams County Hospital10-26-2023 Instructions* Patient Instructions* Al Nichole APRN.CNP - 07/09/2023 1:23 PM EDT Buspar. documented in this encounterAdams County Hospital10-26-2023 History of Present illness Narrative* Al Nichole APRN.CNP - 07/09/2023 1:08 PM EDT CC: Patient presents with: Recheck: Follow up Immunizations: Flu vaccination HPI Rosana Maki is a 83 year old female who [...] was started by neurologist Dr. Blanca. Ms. Maki denies headache, chest pain, palpitations, difficulty breathing when laying flat,and dyspnea. Patient denies any side effects of her medication(s) and is compliant with their regimen. She does check BP's away from this office and denies any further low blood pressure readings. Would like to stop the florinef as she feels it is making her retain fluids. Dependent edema to BLE as the day continues. Will occasionally still have some trace edema to rightfoot in AM but overall feels like feels [...] 120mg 3 at night Stress, blood sugar, thyroid/hormones/adrenals/sleep/energy/toxins/muscles/constipation/asthma Work up to 3 capsules with meals at night - can cause loose stools metoprolol succinate ER (TOPROL XL) 25 mg 24 hr tablet Take half tablet in the morning and 1 tabletin the evening. esomeprazole (NEXIUM) 40 mg capsule [...] - Instructed patient to contact office or [id number] after-hours promptly should condition worsen or any new symptoms appear. - [facility] and after hours crisis line 5. [...] symptoms occur. Patient agreeable to treatment plan. Al Nichole APRN.CNP documented in this encounterAdams County Hospital08-25-2023 Miscellaneous Notes* Telephone Encounter - Cris Richards Ma - 05/08/2023 3:00 PM EDT Pt notified of results via [email or web address]. Cris Richards Ma * Telephone Encounter - Al Nichole APRN.CNP - 05/08/2023 1:10 PM EDT Please let patient know that I reviewed all of her lab workups and the only thing I want to repeat at the moment is to recheck her sodium level next week. Order for BMP placed. Thank you Al Nichole APRN.NIKO documented in this encounterAdams County Hospital08-25-2023 Miscellaneous Notes* Telephone Encounter - Ilya Wagner JIGNESH - 05/08/2023 1:34 PM EDT BEHAVIORAL HEALTH SOCIAL WORK CONSULT NOTE Service Date: May 08, 2023 Patient was identified by name and Patient: Rosana Maki [address] [place] [address] (home) [phone] (cell) PCP: Rochelle Hackett MD [address] [facility] [place] [address] Patient identified for [facility] from: PCP Reason for referral: Resources Behavioral Health Resources: Psychology - talk therapy [facility] encounter type: Telephone Encounter Assessment: Referral made to engage patient experiencing anxiety . [facility] reviewed patient's chart and insurance to identify resources. Patient stated they are experiencing anxiety. Patient denies suicidal or homicidal ideation. Patient identified she is seeking therapy sooner than [facility]. [facility] will send resources to patient through [facility] per her request. Medications: Current Outpatient Medications [...] 120mg 3 at night Stress, blood sugar, thyroid/hormones/adrenals/sleep/energy/toxins/muscles/constipation/asthma Work up to 3 capsules with meals at night - can cause loose stools metoprolol succinate ER (TOPROL XL) 25 mg 24 hr tablet Take half tablet in the morning and 1 tabletin the evening. esomeprazole (NEXIUM) 40 mg capsule [...] Reason for external referral: Wait times at F too long Final Disposition: Resources given Patient Discharged?: Yes Patient reported that caregiver was able to meet their needs today?: Yes Internal Referrals : No Reason for External Referrals : Wait is too long Intervention: Supportive Listening Provided referral information Resources Provided: [facility] Time Spent: 15 minutes JIGNESH Kuo-S documented in this encounterAdams County Hospital08-25-2023 History of Present illness Narrative* Al Nichole APRN.FLIGHT FOLLOWER - 05/08/2023 8:08 AM EDT CC: Patient presents with: Medicare Wellness Exam: Annual Medicare Wellness HPI Rosana Maki is a 83 year old female who [...] palpitations and saw her cardiology group. Sees [facility] for history of A-fib. Had a cardiac workup and states everything was ok and sees them again in June. Has been told by cardiology previously they feel anxiety is affecting her symptoms and was on zoloft for a few years but was taken offof it because it made her chronic hyponatremia [...] 120mg 3 at night Stress, blood sugar, thyroid/hormones/adrenals/sleep/energy/toxins/muscles/constipation/asthma Work up to 3 capsules with meals at night - can cause loose stools metoprolol succinate ER (TOPROL XL) 25 mg 24 hr tablet Take half tablet in the morning and 1 tabletin the evening. esomeprazole (NEXIUM) 40 mg capsule [...] - Instructed patient to contact office or [id number] after-hours promptly should condition worsen or any new symptoms appear. - [facility] and after hours crisis line 2. Nausea [...] symptoms occur. Patient agreeable to treatment plan. Al Nichole APRN.NIKO documented in this encounterAdams County Hospital08-12-2023 Discharge summary Author Tejinder Mora [facility] April 25, 2023 7:17pm Note Date/Time April 25, 2023 4: 40pm [facility] Medical Records Department [address] [place] [address] Emergency Department Summary 04/25/23 MR#: [id number] Acct: [id number] Name: ROSANA MAKI Rep #:[id number] : 1940 83 From: Tejinder Mora MD PCP: Dr. Rochelle Hackett MD Status:REG E R Location: ED HPI <RIGOBERTO Grant - Last Filed: 04/25/23 19:10> History of Present Illness Chief Complaint: Nausea/Vomiting Narrative Narrative: Patient presenting today due to vomiting that started this morning. She reportsthat she has vomited about 5 times. Yesterday she was out in the sun and was swimming and reports that she gets motion sickness very easily. She started to feel nauseous after swimming and that feeling persisted into today. She reportsthat she feels dehydrated. She denies feeling dizzy or lightheaded. She deniesfever, chills, abdominal pain, hematemesis, diarrhea, and urinary symptoms. Cody had a bowel movement this morning that was normal. [facility] <RIGOBERTO Grant - Last Filed: 04/25/23 19:10> [facility] Medical History Anemia Atrial flutter Atrophic vaginitis 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) Chronic diarrhea Chronic hyponatremia Compression fracture of L1 lumbar vertebra COVID-19 Dehydration Diverticulitis Dysequilibrium GERD (gastroesophageal reflux disease) history of blood transfusion History of breast cancer IBS (irritable bowel syndrome) Intestinal disease, parasitic Lichen sclerosus Migraine Nonrheumatic mitral (valve) prolapse Osteopenia Osteopenia Osteopenia 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 Ovarian cyst Paroxysmal atrial fibrillation Paroxysmal atrial flutter Screening for breast cancer SIADH (syndrome of inappropriate ADH production) Syncope (07/13/19) Tachycardia Tendinitis of right shoulder TIA (transient ischemic attack) Vaginal dryness Weakness Home Medications denosumab 60 mg/mL subcutaneous syringe (Prolia) 60 mg subcut [id number] bone density 08/16/19 [History Last Taken Unknown] meclizine 12.5 mg tablet 12.5 mg PO TID PRN PRN Vertigo #20 tabs 11/14/19 [Rx Last Taken Unknown] Bilaterl knee high compression stockings (10-20) #2 ea 05/29/22 [Rx Last Taken Unknown] clobetasol 0.05 % topical cream 1 applic topical .COMPLEX #15 grams 08/05/22 [Rx Last Taken Unknown] apixaban 5 mg tablet 5 mg PO BID #60 tabs 08/06/22 [Rx Last Taken Unknown] calcium carbonate 600 mg calcium (1,500 mg) tablet 600 mg PO DAILY 10/14/22 [History Last Taken Unknown] cholecalciferol (vitamin D3) 10 mcg (400 unit) capsule 2,000 unit PO DAILY supplement 10/14/22 [History Last Taken Unknown] dofetilide 250 mcg capsule 250 mcg PO Q12 afib #180 caps 10/17/22 [Rx Last Taken Unknown] esomeprazole magnesium 40 mg capsule,delayed release See Rx Instructions .Route .COMPLEX #90 caps 12/18/22 [Rx Last Taken Unknown] magnesium oxide 400 mg (241.3 mg magnesium) tablet 400 mg PO DAILY #90 tabs 01/19/23 [Rx Last Taken Unknown] metoprolol succinate 25 mg tablet,extended release 24 hr 25 mg PO .COMPLEX #135 tabs 01/28/23 [Rx Last Taken Unknown] fludrocortisone 0.1 mg tablet 0.05 mg (1/2 x 0.1 mg) .Route .COMPLEX #8 tabs 04/07/23 [Rx Last Taken Unknown] vibegron 75 mg tablet (Gemtesa) 75 mg PO DAILY 04/07/23 [History Last Taken Unknown] metoclopramide HCl 10 mg tablet (Reglan) 10 mg PO Q6H PRN nausea and vomiting 3 days #18 tabs 04/25/23 [Rx Last Taken Unknown] mirabegron 50 mg tablet,extended release 24 hr (Myrbetriq) 50 mg PO Q24H 04/25/23 [History Last Taken Unknown] Allergy/AdvReac Type Severity Reaction Status Date / Time cantaloupe Allergy Severe Anaphylaxis Verified 04/25/23 16:13 grass pollen Allergy Severe Unknown Verified 04/25/23 16:13 Penicillins Allergy Severe Anaphylaxis Verified 04/25/23 16:13 Sulfa (Sulfonamide Allergy Unknown Other Verified 04/25/23 16:13 Antibiotics) mold Allergy Unknown Verified 04/25/23 16:13 pollen extracts Allergy Unknown Verified 04/25/23 16:13 erythromycin base AdvReac Severe Unknown Verified 04/25/23 16:13 lansoprazole [From Prevacid] AdvReac Severe Nausea/Vom/ Verified 04/25/23 16:13 Diarrhea adhesive tape AdvReac Intermediate Rash Verified 04/25/23 16:13 Family History Father Unknown family medical history Mother Uterine cancer Thyroid disorder Kidney disease Hypertension CHF (congestive heart failure) Arthritis Surgical History H/O breast biopsy H/O left mastectomy H/O lymph node biopsy History of cataract surgery History of colonoscopy (05/2019) History of dilation and curettage History of esophagogastroduodenoscopy (EGD) (05/2019) History of left heart catheterization (09/2012) History of radiofrequency ablation (RFA) procedure for cardiac arrhythmia (08/2013) History of removal of ovarian cyst Social History Smoking Status: Never smoker alcohol intake: current alcohol intake frequency: holidays/special occasions only substance use type: does not use caffeine: Yes what type of physical activity do you participate in: walking and yoga frequency: 3-4 times per week seatbelt use: always do you feel safe at home: Yes additional social history: -Kylee Patient and are both retired ROS <RIGOBERTO Grant - Last Filed: 04/25/23 19:10> ROS ED Constitutional Constitutional ED: Denies chills or fever(s) Cardiovascular Cardiovascular: Denies chest pain or palpitations Respiratory/Chest Respiratory/Chest: Denies cough or dyspnea Gastrointestinal Gastrointestinal: Reports nausea and vomiting; Denies abdominal pain, constipation or diarrhea Genitourinary Genitourinary ED: Denies dysuria, hematuria or urinary urgency Musculoskeletal Musculoskeletal: Denies arthralgias or myalgias Integumentary Denies rash Neurologic Neurologic: Denies headache(s) or weakness EXAM <RIGOBERTO Grant - Last Filed: 04/25/23 19:10> Physical Exam Const Vital Signs: 04/25/23 16:13 04/25/23 18:17 04/25/23 18:00 Temperature 97.1 F L Temperature Source Temporal Pulse Rate 74 82 Respiratory Rate 18 18 Blood Pressure 213/99 H 167/93 H 171/86 H Blood Pressure Mean 137 117 108 Pulse Ox 98 Oxygen Delivery Method Room Air Room Air Positive well nourished, well developed and no apparent distress General Appearance ED: well developed HEENT Reports normocephalic and head/scalp atraumatic Mouth ED: Yes moist mucous membranes normal Eyes PERRL and EOMs intact bilaterally Neck full ROM and supple Chest Wall inspection of chest normal Resp normal respiratory effort and clear to auscultation bilaterally Cardio regular rate and regular rhythm GI soft to palpation, non-tender, non-distended and no masses Back/Spine normal ROM and normal to inspection Extremity normal to inspection and full ROM Neuro oriented x3, CN's II-XII intact bilaterally, moves all extremities, no focal motor deficits and no sensory deficits noted Sensorium / Orientation: awake and alert Psych mental status grossly normal and thought process normal Skin no rashes or lesions noted and no wounds <Dr. Tejinder Mora MD - Last Filed: 04/25/23 19:17> Physical Exam Const Vital Signs: 04/25/23 16:13 04/25/23 18:17 04/25/23 18:00 Temperature 97.1 F L Temperature Source Temporal Pulse Rate 74 82 Respiratory Rate 18 18 Blood Pressure 213/99 H 167/93 H 171/86 H Blood Pressure Mean 137 117 108 Pulse Ox 98 Oxygen Delivery Method Room Air Room Air MDM <RIGOBERTO Grant - Last Filed: 04/25/23 19:10> [facility] Narrative Medical decision making narrative: Patient presenting due to nausea and vomiting. She began to feel nauseous yesterday after swimming out in the heat and reports that she gets motion sickness very easily. Today she began vomiting and vomited about 5 times. She reports she feels dehydrated. BMP will be obtained to check for electrolyte abnormality, MAYANK she will be given IV fluids and Zofran. Initially patient's blood pressure was elevated but on repeat check it has gone down a little bit to167/93. She reports that this is normal for her when she is in the emergency department. On repeat exam patient reports that she still feels nauseous and Zofran does not work well for her. She will be given IV Reglan. She has been given a p.o. challenge and was able to drink gayle arik and reported that her nausea has improved. She initially requested meclizine here but then reported that she has it at home that she can take instead. She will be given a prescription for Reglan and has been given return instructions. She will be discharged home in stable condition and is comfortable with plan. I have personally performed a face to face assessment of the patient and have reviewed the TERE Note. I performed a substantive portion of the visit including all aspects of the following. My friedman findings include: History is remarkable for nausea and vomiting x4 5 prior to arrival. Patient has history of breast cancer upper inner quadrant of the left breast. She had history of SIADH, TIA, she denies history of prior partial or complete small bowel obstruction. There is no history of volvulus. She states her last normalbowel movement was this morning. 1.5 weeks ago she had diarrhea. She denies ill contacts. She denies fever or chills. She does endorse thirst, dry mouth and lightheadedness with standing. She denies hematemesis. Exam is remarkable for dry tongue and mucosa. Heart is regular. Rate is normal. There is no murmur, gallop or rub. Abdomen is slightly tympanitic. Bowel sounds are diminished. There is no tenderness. There is no evidence of umbilical or inguinal hernia. Medical Decision Making in light of patient's past medical history will obtain BMP to assess electrolytes and specifically potassium and sodium as well as renal function and CO2/anion gap. IV fluids were ordered. Patient was ordered Zofran. When patient was reassessed at 1727 she had episode of emesis. Reglan has been ordered. Other additions or changes: [None] Lab Data Labs: Laboratory Results - last 24 hr 04/25/23 16:43 Sodium 128 L Potassium 3.6 Chloride 95 L Carbon Dioxide 25.0 Anion Gap 8 BUN 13 Creatinine 0.73 Estim Creat Clear Calc 37.09 Est GFR (MDRD) Af Amer 98 Est GFR (MDRD) Non-Af 81 BUN/Creatinine Ratio 17.8 Glucose 144 H Calcium 8.5 <Dr. Tejinder Mora MD - Last Filed: 04/25/23 19:17> [facility] Narrative Medical decision making narrative: Patient presenting due to nausea and vomiting. She began to feel nauseous yesterday after swimming out in the heat and reports that she gets motion sickness very easily. Today she began vomiting and vomited about 5 times. She reports she feels dehydrated. BMP will be obtained to check for electrolyte abnormality, MAYANK she will be given IV fluids and Zofran. Initially patient's blood pressure was elevated but on repeat check it has gone down a little bit to 167/93. She reports that this is normal for her when she is in the emergency department. On repeat exam patient reports that she still feels nauseous and Zofran does not work well for her. She will be given IV Reglan. She has been given a p.o. challenge and was able to drink gayle arik and reported that her nausea has improved. She initially requested meclizine here but then reported that she has it at home that she can take instead. She will be given a prescription for Reglan and has been given return instructions. She will be discharged home in stable condition and is comfortable with plan. I have personally performed a face to face assessment of the patient and have reviewed the TERE Note. I performed a substantive portion of the visit including all aspects of the following. My friedman findings include: History is remarkable for nausea and vomiting x4 5 prior to arrival. Patient has history of breast cancer upper inner quadrant of the left breast. She had history of SIADH, TIA, she denies history of prior partial or complete small bowel obstruction. There is no history of volvulus. She states her last normal bowel movement was this morning. 1.5 weeks ago she had diarrhea. She denies ill contacts. She denies fever or chills. She does endorse thirst, dry mouth and lightheadedness with standing. She denies hematemesis. Exam is remarkable for dry tongue and mucosa. Heart is regular. Rate is normal. There is no murmur, gallop or rub. Abdomen is slightly tympanitic. Bowel sounds are diminished. There is no tenderness. There is no evidence of umbilical or inguinal hernia. Medical Decision Making in light of patient's past medical history will obtain BMP to assess electrolytes and specifically potassium and sodium as well as renal function and CO2/anion gap. IV fluids were ordered. Patient was ordered Zofran. When patient was reassessed at 1727 she had episode of emesis. Reglan has been ordered. Other additions or changes: Patient did pass p.o. challenge after IV Reglan. Patient was discharged home. Lab Data Attestation: I reviewed the patient's lab results. Lab results narrative: Patient does have mild hyponatremia. It is not significant different from prior labs. Glucose is elevated 144 with a normal CO2 and anion gap. Labs: Laboratory Results - last 24 hr 04/25/23 16:43 Sodium 128 L Potassium 3.6 Chloride 95 L Carbon Dioxide 25.0 Anion Gap 8 BUN 13 Creatinine 0.73 Estim Creat Clear Calc 37.09 Est GFR (MDRD) Af Amer 98 Est GFR (MDRD) Non-Af 81 BUN/Creatinine Ratio 17.8 Glucose 144 H Calcium 8.5 Discharge Plan Triage Chief Complaint: Nausea/Vomiting ED Midlevel Provider: Cammie Barajas ED Provider: Tejinder Mora Dx/Rx/DC Orders Clinical Impression: History of breast cancer, Hyponatremia, Intractable vomiting with nausea Instructions: ED Vomiting (Adult) Prescriptions: New metoclopramide HCl [Reglan] 10 mg tablet 10 mg PO Q6H PRN (Reason: nausea and vomiting) 3 Days Qty: 18 0RF No Action Prolia 60 mg/mL syringe 60 mg SC [id number] (DME) Bilaterl knee high compression stockings (10-20) See Rx Instructions .Route .MEDSUPPLY Qty: 2 0RF Rx Instructions: As directed calcium carbonate 600 mg calcium (1,500 mg) tablet 600 mg PO DAILY magnesium oxide 400 mg (241.3 mg magnesium) tablet 400 mg PO DAILY Qty: 90 3RF Gemtesa 75 mg tablet 75 mg PO DAILY Patient Comments: take 1 tablet by mouth once daily fludrocortisone 0.1 mg tablet 0.05 mg .ROUTE .COMPLEX Qty: 8 5RF Rx Instructions: Take 1/2 tablet po every Thursday, Thursday and Thursday cholecalciferol (vitamin D3) 10 mcg (400 unit) capsule 2,000 unit PO DAILY meclizine 12.5 MG tablet 12.5 mg PO TID PRN PRN (Reason: Vertigo) Qty: 20 0RF Myrbetriq 50 mg tablet extended release 24 hr 50 mg PO Q24H Patient Comments: take 1 tablet by mouth once daily clobetasol 0.05 % cream 1 applic TOPICAL .COMPLEX Qty: 15 0RF Rx Instructions: 1 applic TOPICAL apply thin layer as directed bid X 2 weeks then daily X 2 weeks; apply thin layer; massage in to cover area apixaban 5 mg tablet 5 mg PO BID Qty: 60 11RF dofetilide 250 mcg capsule 250 mcg PO Q12 Qty: 180 3RF esomeprazole magnesium 40 mg capsule,delayed release(/EC) See Rx Instructions .ROUTE .COMPLEX Qty: 90 3RF Dose Instruction: take 1 capsule by mouth daily Rx Instructions: take 1 capsule by mouth daily metoprolol succinate 25 mg tablet extended release 24 hr 25 mg PO .COMPLEX Qty: 135 3RF Rx Instructions: 1/2 tablet (12.5 mg) in the morning and a whole tablet (25 mg) at bedtime Primary Care Provider: Rochelle Hackett Referrals: Rochelle Hackett MD [Primary Care Provider] - 3-5 Days Activity Restrictions/Additional Instructions: Please follow-up with your PCP and return for any worsening of your symptoms. Stay well-hydrated. Disposition Disposition: Home, Self Care What to do if you have Problems For any increased pain, shortness of breath, bleeding, nausea or vomiting, chestpain, or any unexpected problems, contact your Primary Care Provider. Call [facility] ([phone]) or report to the closest Emergency Room. Call 911 if necessary. 04/25/231916 <Electronically signed by Tejinder Mora MD> Cosigner Signature (if applicable): 04/25/231909 <Electronically signed by Cammie FRANKLIN> CC: Dr. Rochelle Hackett MD ~ Signed [facility] Work Phone: [phone]) 642-566208-08-2023 Miscellaneous Notes* Telephone Encounter - Faith Hauser LPN - 04/21/2023 10:06 AM EDT Patient calling in, given below results, verbalized understanding. Faith Hauser LPN * Telephone Encounter - Josie Blankenship RN - 04/20/2023 4:45 PM EDT Called and left a voicemail for the Patient to call back and ask for a nurse to receive the providers message. Josie Blankenship RN * Telephone Encounter - Sandra Leayr APRN.CNP - 04/20/2023 4:35 PM EDT Please let patient know stool testing is negative. XR shows some stool burden but no obstruction [facility] History of Present illness Narrative* Sara Rangel APRN.CNS - 04/20/2023 4:39 PM EDT canceled documented in [facility] encounterAd[facility]23 Miscellaneous Notes* Telephone Encounter - Josie Blankenship RN - 04/17/2023 10:55 AM EDT Pt called and is notified of providers [...] was still in process. Josie Blankenship RN * Telephone Encounter - Sandra Leary APRN.CNP - 04/17/2023 9:38 AM EDT It is possible that the mold is what is making her sick. I would recommend staying with friends or family until the company can come remove/treat it.If they can not she should avoid that area as muchas possible and open windows to ensure good ventilation. * Telephone Encounter - Josie Blankenship RN - 04/17/2023 9:14 AM EDT Pt called and is notified of providers results and instructions. Pt voices understanding, she states she always has trouble with her sodium. She is drinking Powerade right now, but she will get what the provider says and get her labs on Thursday. Pt reports she is feeling a bit woozy when she gets uptoday. She states he and her were cleaning out a closet yesterday that they found out they have a mold problem in. She states the mold was all different colors,It looked like a modern painting on the butler.. She reports the mold remediation people won't be out until next week. I asked heris there was any way they could stay away from the area the mold was in and she said it's in the fro nt cruz closet which opens to the living and dining area, which is where her and her spend most of her time. I asked Pt if there was somewhere they could go stay for a while to get away from the mold, and she was going to check with some friends. Please call and advise. Josie Blankenship RN * Telephone Encounter - Sandra Leary APRN.CNP - 04/17/2023 8:42 AM EDT Please let patient know her sodium is slightly lower than her normal. I would like her to get a n electrolyte drink like liquid IV or pedialyte and drink 2 glasses of that for the next couple days and we will recheck her labs on Thursday. documented [facility]Ad[facility] History of Present illness Narrative* Diana Meadows RT(R) - 04/16/2023 9:00 AM EDT Radiology Service Progress Note PATIENT NAME: Rosana Maki DATE OF SERVICE: April 16, 2023 TIME: 8:48 AM PATIENT IDENTITY VERIFICATION COMPLETED USING TWO (2) IDENTIFIERS: Name and Date of confirmedby patient verbally. FALL SCREENING: Has the patient [...] RT Patrick(R) April 16, 2023 8:48 AM documented in this encounterAd[facility]08-[facility] History of Present illness Narrative* Sandra Leary, JEAN-CLAUDE.FLIGHT FOLLOWER - 04/16/2023 8:21 AM EDT Chief Complaint No chief complaint on file. HPI Rosana Maki is a 83 year old female who [...] 120mg 3 at night Stress, blood sugar, thyroid/hormones/adrenals/sleep/energy/toxins/muscles/constipation/asthma Work up to 3 capsules with meals at night - can cause loose stools metoprolol succinate ER (TOPROL XL) 25 mg 24 hr tablet Take half tablet in the morning and 1 tabletin the evening. esomeprazole (NEXIUM) 40 mg capsule [...] DIFFICILE PCR - XR ABDOMEN 1V SUPINE Sandra Leary APRN.FLIGHT FOLLOWER documented in this encounterAd[facility]08-02-2023 Miscellaneous Notes* Telephone Encounter - Grace Burgos RN - 04/15/2023 4:17 PM EDT See previous phone encounter 04/10. Pt states last evening she started with some soft stools again. States there is some shape to them and it is not liquid. She states she is still not feeling well. Is eating and taking fluids well. No N/V. Has had at least 48 oz of fluid today. Made ER f/u appt fortomorrow morning with Sara Rangel. Pt is wondering if she needs to have stool sample tested. documented in this encounterAd[facility]07-26-[facility] Discharge summary Author Denzel Boone [facility] April 08, 2023 7:25pm Note Date/Time April 08, 2023 3:08 pm [facility] Medical Records Department [address] [place] [address] Emergency Department Summary 04/08/23 MR#: [id number] Acct: [id number] Name: ROSANA MAKI #:[id number] : 1940 83 From: Denzel Daley PCP: Dr. Rochelle Hackett MD Status:REG E R Location: ED [facility] History of Present Illness Chief Complaint: Syncope [facility] Medical History Anemia Atrial flutter Atrophic vaginitis 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) Chronic diarrhea Chronic hyponatremia Compression fracture of L1 lumbar vertebra COVID-19 Dehydration Diverticulitis Dysequilibrium GERD (gastroesophageal reflux disease) history of blood transfusion IBS (irritable bowel syndrome) Intestinal disease, parasitic Lichen sclerosus Migraine Nonrheumatic mitral (valve) prolapse Osteopenia Osteopenia Osteopenia 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 Ovarian cyst Paroxysmal atrial fibrillation Paroxysmal atrial flutter SIADH (syndrome of inappropriate ADH production) Syncope (07/13/19) Tachycardia Tendinitis of right shoulder TIA (transient ischemic attack) Vaginal dryness Weakness Home Medications denosumab 60 mg/mL subcutaneous syringe (Prolia) 60 mg subcut [id number] bone density 08/16/19 [History Last Taken Unknown] meclizine 12.5 mg tablet 12.5 mg PO TID PRN PRN Vertigo #20 tabs 11/14/19 [Rx Last Taken Unknown] Bilaterl knee high compression stockings (10-20) #2 ea 05/29/22 [Rx Last Taken Unknown] clobetasol 0.05 % topical cream 1 applic topical .COMPLEX #15 grams 08/05/22 [Rx Last Taken Unknown] apixaban 5 mg tablet 5 mg PO BID #60 tabs 08/06/22 [Rx Last Taken Unknown] metoclopramide HCl 10 mg tablet (Reglan) 10 mg PO 4X/DAY PRN PRN nausea and vomiting #28 tabs 08/17/22 [Rx Last Taken Unknown] calcium carbonate 600 mg calcium (1,500 mg) tablet 600 mg PO DAILY 10/14/22 [History Last Taken Unknown] cholecalciferol (vitamin D3) 10 mcg (400 unit) capsule 2,000 unit PO DAILY supplement 10/14/22 [History Last Taken Unknown] dofetilide 250 mcg capsule 250 mcg PO Q12 afib #180 caps 02/03/23 [Rx Last Taken Unknown] anastrozole 1 mg tablet 1 mg PO QHS #90 tabs 12/18/22 [Rx Last Taken Unknown] esomeprazole magnesium 40 mg capsule,delayed release See Rx Instructions .Route .COMPLEX #90 caps 12/18/22 [Rx Last Taken Unknown] magnesium oxide 400 mg (241.3 mg magnesium) tablet 400 mg PO DAILY #90 tabs 01/19/23 [Rx Last Taken Unknown] metoprolol succinate 25 mg tablet,extended release 24 hr 25 mg PO .COMPLEX #135 tabs 01/28/23 [Rx Last Taken Unknown] fludrocortisone 0.1 mg tablet 0.05 mg (1/2 x 0.1 mg) .Route .COMPLEX #8 tabs 04/07/23 [Rx Last Taken Unknown] vibegron 75 mg tablet (Gemtesa) 75 mg PO DAILY 04/07/23 [History Last Taken Unknown] Allergy/AdvReac Type Severity Reaction Status Date / Time cantaloupe Allergy Severe Anaphylaxis Verified 04/08/23 14:05 grass pollen Allergy Severe Unknown Verified 04/08/23 14:05 Penicillins Allergy Severe Anaphylaxis Verified 04/08/23 14:05 Sulfa (Sulfonamide Allergy Unknown Other Verified 04/08/23 14:05 Antibiotics) mold Allergy Unknown Verified 04/08/23 14:05 pollen extracts Allergy Unknown Verified 04/08/23 14:05 erythromycin base AdvReac Severe Unknown Verified 04/08/23 14:05 lansoprazole [From Prevacid] AdvReac Severe Nausea/Vom/ Verified 04/08/23 14:05 Diarrhea adhesive tape AdvReac Intermediate Rash Verified 04/08/23 14:05 Family History Father Unknown family medical history Mother Uterine cancer Thyroid disorder Kidney disease Hypertension CHF (congestive heart failure) Arthritis Surgical History H/O breast biopsy H/O left mastectomy H/O lymph node biopsy History of cataract surgery History of colonoscopy (05/2019) History of dilation and curettage History of esophagogastroduodenoscopy (EGD) (05/2019) History of left heart catheterization (09/2012) History of radiofrequency ablation (RFA) procedure for cardiac arrhythmia (08/2013) History of removal of ovarian cyst Social History Smoking Status: Never smoker alcohol intake: current alcohol intake frequency: holidays/special occasions only substance use type: does not use caffeine: Yes what type of physical activity do you participate in: walking and yoga frequency: 3-4 times per week seatbelt use: always do you feel safe at home: Yes additional social history: -Kylee Patient and are both retired EXAM Physical Exam Const Vital Signs: 04/08/23 14:05 04/08/23 14:22 04/08/23 15:11 Temperature 97.7 F L Temperature Source Temporal Pulse Rate 54 L Respiratory Rate 18 Respiratory Effort Normal Non-Labored Blood Pressure 176/72 H Blood Pressure Mean 106 Pulse Ox 97 Oxygen Delivery Method Room Air Room Air 04/08/23 15:47 04/08/23 16:16 Temperature Temperature Source Pulse Rate 65 Respiratory Rate Respiratory Effort Blood Pressure 156/71 H Blood Pressure Mean 99 Pulse Ox Oxygen Delivery Method Room Air MDM MDM MDM Narrative Medical decision making narrative: HISTORY OF PRESENT ILLNESS: 83-year-old female here for near syncope. Patient was passed out. Notes diarrhea notes fasting. She further states she nearly passed out this afternoon. Denies any headache prior to passing out, chest pain, palpitations, abdominal pain. States she been fasting for blood work this morning also has been having several episodes of watery diarrhea. She denies any recent travel, antibiotics or surgery. Notes compliance with her A-fib medication regiment. No bleeding diathesis. No vomiting noted. REVIEW OF SYSTEMS: Pertinent positives: Near syncope, diarrhea Pertinent negatives: Headache, chest pain, abdominal pain, vomiting PHYSICAL EXAM: Nursing triage notes reviewed, Vital signs reviewed Constitutional: please see mdm HENT: MMM Eyes: Pupils equal round and reactive to light, Extraocular muscles intact Neck: No stridor, no JVD, full neck ROM Lungs: Clear to auscultation, No wheezing or rales. No increased work of breathing, no conversational dyspnea, no accessory muscle use, no nasal flaring. No respiratory distress noted Heart: Regular rate and rhythm, No murmurs, No rubs and No gallops, 2+ distal pulses (radial, femoral, posterior tibial) in all extremities Abdomen: Soft, there is no tenderness, rigidity, rebound or guarding, no obviousperitoneal signs, no palpable pulsatile abdominal masses, no auscultated abdominal bruit : No CVAT Extremities: No edema Neuro: No focal neurological deficits, cranial nerves II through XII intact, 5/5strength in all extremities. Intact sensation to light touch in all extremities,2+ reflexes bilateral patella tendons. Normal gait. No ataxia. Skin: No rash or lesions noted MEDICAL DECISION MAKING: Chief Complaint: Near syncope, diarrhea External records reviewed: Ejection fraction 2020 to 65% Factors affecting care: none anemia, a flutter, on Eliquis secondary to A-fib a flutter, IBS, GERD, Social determinants of health: Elderly History obtained from others: The patient's Consults: none ALL IMAGES (IF OBTAINED) HAVE BEEN PERSONALLY REVIEWED AND INTERPRETED BY MYSELF. EKG with n sinus bradycardia, prolonged ID interval, first-degree AV block rightaxis, normal intervals, no STEMI Troponin is negative, no evidence of myocardial ischemia BMP with hyponatremia, no anion gap to suggest endorgan hypoperfusion, no acute kidney injury BNP elevated consistent with increased myocardial stretch MDM Narrative: Patient was initially hypertensive otherwise hemodynamically stable, afebrile nontoxic-appearing. Exam without focal cardiopulmonary abnormalities. No focalneurologic deficits noted. No pulse deficits noted. I considered the following differential diagnosis: ACS, arrhythmia, anemia, electro normality, MAYANK dehydration Clinically patient's history is consistent with likely dehydration given fastingand diarrhea. Patient's electrolytes showed signs consistent with dehydration with hyponatremia. This replace with 1 L normal saline. There are no other significant electrolyte abnormalities. Initial EKG was not arrhythmia genic. Troponin was negative. Will wait for repeat troponin determine patient disposition from there. Delta troponin was negative. No clear life-limiting etiology. Suspect the patient's near syncope was secondary to dehydration givendiarrhea and fasting for blood work. Encourage increased p.o. intake to follow with her primary care physician for further outpatient follow-up. The patient and/or family, caregivers express understanding. The patient and/orfamily, caregivers agrees with the plan. Shared decision making: I will have a discussion with the patient and or visitors regarding risk/benefits of further testing or admission. They will be made aware of of the risk/benefits inherent in this decision they will be given the opportunity to voice understanding. Total critical care time today provided was at least 0 minutes. This excludes separately billable procedures. Critical care time (if documented) is secondary to the patient having high probability of clinically significant/life threatening deterioration in the patient's condition which required my urgent intervention. Lab Data Attestation: I reviewed the patient's lab results. Lab results narrative: CBC without leukocytosis, severe anemia, no thrombocytopenia. BMP without evidence of significant electrolyte abnormalities, no anion gap, no acute kidneyinjury. Troponin is negative, no evidence of myocardial ischemia x2. BNP mildly elevated consistent with increased myocyte stretch. Labs: Laboratory Results - last 24 hr 04/08/23 04/08/23 15:10 18:30 WBC 4.0 L RBC 3.90 L Hgb 12.4 Hct 36.3 L MCV 93.1 MCH 31.8 MCHC 34.2 RDW Std Deviation 48.8 H RDW Coeff of Idania 14.2 Plt Count 248 MPV 9.9 Immature Gran % (Auto) 0.000 Neut % (Auto) 40.4 L Lymph % (Auto) 45.0 H Huron % (Auto) 12.9 H Eos % (Auto) 1.0 Baso % (Auto) 0.7 Absolute Neuts (auto) 1.6 L Absolute Lymphs (auto) 1.82 Nucleated RBC % 0 Sodium 129 L Potassium 3.9 Chloride 96 L Carbon Dioxide 29.0 Anion Gap 4 L BUN 15 Creatinine 0.87 Estim Creat Clear Calc 42.89 Est GFR (MDRD) Af Amer 80 Est GFR (MDRD) Non-Af 66 BUN/Creatinine Ratio 17.2 Glucose 90 Calcium 8.3 L Troponin I High Sens 4 4 B-Natriuretic Peptide 158.3 H Radiography Chest X-Ray - ED: Read by ED Physician Diagnostic Testing: Clinical Impression(s) from Imaging Studies Chest X-Ray 04/08/23 15:04 IMPRESSION: Hyperinflation. Prominence of the pulmonary arteries bilaterally. The lungs are clear. Electronically Signed: Edenilson Crisostomo MD at 15:31 EDT , I have personally reviewed the patient's chest x-ray. Chest x-ray is unremarkable for pulmonary edema, pneumothorax, pneumonia or focal cardiopulmonary abnormality. Discharge Plan Triage Chief Complaint: Syncope ED Provider: Denzel Boone Dx/Rx/DC Orders Prescriptions: No Action Prolia 60 mg/mL syringe 60 mg SC [id number] (DME) Bilaterl knee high compression stockings (10-20) See Rx Instructions .Route .MEDSUPPLY Qty: 2 0RF Rx Instructions: As directed calcium carbonate 600 mg calcium (1,500 mg) tablet 600 mg PO DAILY magnesium oxide 400 mg (241.3 mg magnesium) tablet 400 mg PO DAILY Qty: 90 3RF Gemtesa 75 mg tablet 75 mg PO DAILY Patient Comments: take 1 tablet by mouth once daily fludrocortisone 0.1 mg tablet 0.05 mg .ROUTE .COMPLEX Qty: 8 5RF Rx Instructions: Take 1/2 tablet po every Thursday, Thursday and Thursday cholecalciferol (vitamin D3) 10 mcg (400 unit) capsule 2,000 unit PO DAILY meclizine 12.5 MG tablet 12.5 mg PO TID PRN PRN (Reason: Vertigo) Qty: 20 0RF metoclopramide HCl [Reglan] 10 mg tablet 10 mg PO 4X/DAY PRN PRN (Reason: nausea and vomiting) Qty: 28 0RF clobetasol 0.05 % cream 1 applic TOPICAL .COMPLEX Qty: 15 0RF Rx Instructions: 1 applic TOPICAL apply thin layer as directed bid X 2 weeks then daily X 2 weeks; apply thin layer; massage in to cover area apixaban 5 mg tablet 5 mg PO BID Qty: 60 11RF dofetilide 250 mcg capsule 250 mcg PO Q12 Qty: 180 3RF anastrozole 1 mg tablet 1 mg PO QHS Qty: 90 1RF esomeprazole magnesium 40 mg capsule,delayed release(DR/EC) See Rx Instructions .ROUTE .COMPLEX Qty: 90 3RF Dose Instruction: take 1 capsule by mouth daily Rx Instructions: take 1 capsule by mouth daily metoprolol succinate 25 mg tablet extended release 24 hr 25 mg PO .COMPLEX Qty: 135 3RF Rx Instructions: 1/2 tablet (12.5 mg) in the morning and a whole tablet (25 mg) at bedtime Primary Care Provider: Rochelle Hackett Referrals: Rochelle Hackett MD [Primary Care Provider] - What to do if you have Problems For any increased pain, shortness of breath, bleeding, nausea or vomiting, chestpain, or any unexpected problems, contact your Primary Care Provider. Call [facility] ([phone]) or report to the closest Emergency Room. Call 911 if necessary. 04/08/231924 <Electronically signed by Denzel Boone DO> Cosigner Signature (if applicable): CC: Dr. Rochelle Hackett MD ~ Signed [facility] Work Phone: 1(583) 644-614207-26-2023 History of Present illness Narrative* Rishi Romero APRN.CNP - 04/08/2023 4:39 PM EDT Patient [facility]aged at [facility]. Blacked out helped to bed. Still feeling woosy I will refer to ER, to drive pov to [facility] Er. documented in [facility]Ad[facility]07-[facility]23 Miscellaneous Notes* Telephone Encounter - Irish Warren APRN.CNP - 04/08/2023 2:40 PM EDT noted * Telephone Encounter - Nelida Banuelos RN - 04/08/2023 10:38 AM EDT Patient calls to report dizziness this morning with diarrhea x 2 and feels feverish. Nurse triagecompleted. Protocol recommends see provider within 24 hours. Patient reports she is feeling a little better not sure if needs to be seen. Might go to [facility] if doesn't feel better. Recommended evaluationwithin 24 hours. Patient verbalizes understanding and will [...] other symptoms? (e.g., fever, chest pain, vomiting, diarrhea,bleeding) Feels Feverish Diarrhea x 2. No vomiting. No chest pain or bleeding. Protocols used: Dizziness - [id number] documented in this encounterAdams [facility] Hospital05-03-[facility]23 History of Present illness Narrative* Sol Harvey - 01/14/2023 3:20 PM EDT Initial Podiatric Office Visit: Chief Complaint: This [...] Reposition;Relaxation No results found for: HBA1C PCP: Rochelle Hackett MD PAST MEDICAL HISTORY Diagnosis Date [...] 120mg 3 at night Stress, blood sugar, thyroid/hormones/adrenals/sleep/energy/toxins/muscles/constipation/asthma Work up to 3 capsules with meals at night - can cause loose stools metoprolol succinate ER (TOPROL XL) 25 mg 24 hr tablet Take half tablet in the morning and 1 tabletin the evening. esomeprazole (NEXIUM) 40 mg capsule [...] incurvation. No signs of infection. Webspaces clean anddry 1-4 b/l. Skin appears well hydrated and [...] stocking Sol Harvey DPM Podiatry [address] [facility] [address] Dept: [phone] Dept * Caroline Day LPN - 01/14/2023 2:55 PM EDT AMB ROOMING INTAKE FLOWSHEET DATA Pain Pain Level: 7 Pain Location: Toe Description: Aching, Sore Duration Units: Years Frequency: Continuous Intervention/Comfort measure: Reposition, Relaxation Patient presents with: Left Foot - New, Nail Fungus, Pain, Ingrown Toenail Right Foot - New, Nail Fungus, Pain, Ingrown Toenail Caroline Day LPN documented in this encounterAdams County Hospital03-10-2023 Discharge summary Author Brianda Pedro [facility] November 21, 2022 2:27pm Note Date/Time November 21, 2022 9:3 4am [facility] Physical Therapy [facility] [address] [place] [address]. [address] [place] [address] / REHABILITATION SERVICES DISCHARGE SUMMARY MR#: [id number] Acct: [id number] Name: ROSANA MAKI Rep #: [id number] : 1940 82 From: Cert. ANGEL Altman, OCS Referring : Status: REG RCR Insurance: MEDICARE PART A B [employer] It has been my pleasure to treat ROSANA MAKI referred by MAGGI MCDANIEL, withthe diagnosis of PRIMARY OSTEOARTHRITIS OF RIGHT KNEE ,CHRONIC PAIN RIGHT KNEE for a total of 24 visit(s). Discharge Date: 11/21/22 Please see the following information for a summary of their discharge status. Subjective: Doing okay.. Doing well Right Knee Pain Intensity (Out of 10): 0 R Hip Pain Intensity (Out of 10): 0 % Improvement: 50 Objective/Function: POSTURE: mild forward posture. GAIT: reciprocal pattern. MMT: Quads/hams 4/5. AROM: supine knee flexion 0-140 degrees Goal 1:: Patient to be I with Aquatic therapy for knee Goal Progress: Goal Met Goal 2:: Patient to demonstrate 50% improvement with increase function and decrease pain. Goal Progress: Goal Met Goal 3:: Patient to improve peak force MMT by 5 for quads/hams to improve function. Goal Progress: Goal Met Goal 4:: Patient to improve LFES score by 5 points > to improve function and QOL Goal Progress: Goal Met Plan: D/C TO AQUATIC Discharge Comments: water therapy If there are questions or concerns regarding this patient's physical therapy, please feel free to call me at [phone]. Thank you for the referral of thispatient. Sincerely, Brianda Pedro PT, Cert MDT, OCS Balance/Gait/Functional tests - Balance/Special Test Scores Lower Extremity Functional Score: 47 <Electronically signed by Brianda Pedro PT, Cert. T, OCS> 11/21/22 [id number] CC: Dr. Rochelle Hackett MD; MAGGI MCDANIEL ~ JLDoe Signed [facility] Work Phone: 1(356) 178-389303-03-2023 History of Present illness Narrative* Rochelle Hackett MD - 11/14/2022 8:41 AM EST Reason for Visit Patient presents with: F/U 6 months Rosana Maki is a 82 year old female who presents here today for Above Complaints.. Health Maintenance ADVANCE DIRECTIVE DISCUSSION HPI Rosana Maki is a 81 year old female who presents today for annual exam with multiple complaints and chronic issues. Since she last seen me , she has lost some weight, had covid , lost sense of smell and has not beenfeeling the best Does admit to over committing [...] of daily living. She does all her instrumentalactivities of daily living too. Does most of her paper work and does the cooking, laundry as he is more fit that her. Urinary incontinence is a concern , she has been doing some exercises and that is not helping, declines medication before seeing urologist. One concern is that her ankles are swollen on and off, she is on sodium and fludrocortisone but herbp was high, so she was stopped the [...] assistance with ambulation. Also has Chronic right shoulderpain and chronic right knee pain. Gets injections [...] when she does this and needs to startagain. MAYURI: Sees nephrology for this, next appointment is next week. States she drinks the correct amount of water she measures out every morning with the electrolytes as she is instructed by nephrology. Sodium level has been normal and no recent concerns. States when her sodium and electrolytes are notnormal, she has stroke like symptoms and can even pass out. Denies any recent events with this. GERD: has intermittent pain to mid upper abdomen. Has statrted taking pepcid at night for the past few days. Denies increasing abdominal pain, vomiting, dark sticky stools, bright red blood in stools, or difficulty swallowing. Atrial Fibrillation - sees Dr. Cooley at [facility], last saw a few months ago. Denies [...] 120mg 3 at night Stress, blood sugar, thyroid/hormones/adrenals/sleep/energy/toxins/muscles/constipation/asthma metoprolol succinate ER (TOPROL XL) 25 mg [...] BP Cuff Size: Regular Adult) Pulse 64 Temp(!) 35.6 C (96 F) Resp 12 Ht 170.2 cm (5' 7) Wt 51.7 kg (114 lb) SpO2 100% [...] ICD10: F09 Not worsened at least recently Rochelle Hackett MD documented in this encounterAdams County Hospital12-24-2022 Miscellaneous Notes* Telephone Encounter - Ron Wong MD - 09/06/2022 8:22 AM EST Patient was able to have the Molnupiravir prescription transferred to [facility] and started the medicine last night. * Telephone Encounter - Lyssa Cerda LPN - 09/06/2022 8:12 AM EST See pharmacy's note to change rx. documented in this encounterAdams County Hospital12-23-2022 Instructions* Patient Instructions* Ron Wong MD - 09/05/2022 5:56 PM EST Fact [...] by the FDA that are accessible or clinicallyappropriate for you. If you and your healthcare provider decide that you should take molnupiravir during , you and your healthcare provider should discuss the known and potential benefits and the potential risksof taking molnupiravir during . For individuals who are able to become : You should use a reliable method of control (contraception) consistently and correctly duringtreatment with molnupiravir and for 4 days after the last dose of molnupiravir. Talk to your healthcare provider about reliable control methods. Before starting treatment with molnupiravir your healthcare provider may do a test to seeif you are before starting treatment with molnupiravir. Tell your healthcare provider right away if you become or think you may be duringtreatment with molnupiravir. Surveillance Program: There is a [...] healthcare provider to share your information with [employer],then your healthcare provider will report your use of molnupiravir during to [employer]. by calling or Pregnancyreporting.[employer]. For individuals who are sexually active with [...] and for at least 3 months after thelast dose. The risk to sperm beyond 3 months is not known. Studies to understand the risk to sperm beyond 3 months are ongoing. Talk to your healthcare provider about reliable control methods. Talk to your healthcare provider if you have questions or concerns about how molnupiravir may affectsperm. You are being given this fact sheet because your healthcare provider believes it is necessary to provide you with molnupiravir for the treatment of adults with mygo-vv-rkbxvuua coronavirus disease 2019 (COVID-19) with positive results of direct SARS-CoV-2 viral testing, and who are at high risk forprogressing to severe COVID-19 including hospitalization or , and for whom other COVID-19 treatment options authorized by the FDA are not accessible or clinically appropriate. The U.S. Food and Drug Administration (FDA) has issued an Emergency Use Authorization (EUA) to makemolnupiravir available during the COVID-19 pandemic (for more [...] You can get COVID-19 through close contact withanother person who has the virus. COVID-19 illnesses have ranged from very ljar-ez-tbzdlk, including illness resulting in . While information so far suggests that most COVID-19 illness is mild, serious illness can happen and maycause some of your other medical conditions to become worse. Older people and people of all ages with severe, long lasting (chronic) medical conditions like heart disease, lung disease and diabetes, for example seem to be at higher risk of being hospitalized for COVID-19. What is molnupiravir? Molnupiravir is an investigational medicine used to treat vcgm-mm-elnrkfvk COVID-19 in adults: with positive results of direct SARS-CoV-2 viral testing, and who are at high risk for progressing to severe COVID-19 including hospitalization or , and for whom other COVID-19 treatment optionsauthorized by the FDA are not accessible or [...] serious illnesses Are taking any medicines (prescription, ssqp-okv-xqqicdw, vitamins, or herbal products). How do I [...] the missed dose and take your dose atthe next scheduled time. Do not double the [...] may happen. This medicine is still being studied,so it is possible that all of the risks are not known at this time. What other treatment choices are there? Like molnupiravir, FDA may allow for the emergency use of other medicines to treat people with COVID-19. Go to https://www.fda.gov/djmxoscdi-ksofhczfxegb-fez-response/gtn-uflfbavagiltfgm-qzz- policy-framework/xsqyojhqx-vcn-wazbbvnwbpqgi for more information. It is your choice [...] to FDA MedWatch at www.fda.gov/medwatch or call 2-319-OOS-1125 ( ). How should I store molnupiravir? Store molnupiravir capsules at room temperature between 68 F to 77 F (20 C to 25 C). Keep molnupiravir and all medicines out of the reach of children and pets. How can I learn more about COVID-19? Ask your healthcare provider. Visit www.cdc.gov/COVID19 Contact your local or state public health department. Call [employer] at (toll free in the [place] Visit www.TISSUELABnupiraCarmudi What Is an Emergency Use Authorization (EUA)? The [place] FDA has made molnupiravir available under an emergency access mechanism called an Emergency Use Authorization (EUA) The EUA is supported by a Closing Specialist of Health and Human Service (HHS) declaration that circumstances exist to justify emergency use of drugs and biological products during the COVID-19 pandemic. Molnupiravir for the treatment of zjyy-yo-dyclnmfu COVID-19 in adults with positive results of direct SARS-CoV-2 viral testing, who are at high risk for progression to severe COVID-19, including hospitalization or , and for whom alternative COVID-19 treatment options authorized by FDA are not accessible or clinically appropriate, has not undergone the same type of review as an FDA- approved product. In issuing an EUA under the [...] in effect for the duration of the COVID-19declaration justifying emergency use of molnupiravir, unless terminated or revoked (after which molnupiravir may no longer be used under the EUA). For patent information: www.[employer]/research/patent Copyright 2020 [employer] [place], [facility] and its affiliates. All rights reserved. [id number] Issued: 09/05/2021 documented in this encounterAdams County Hospital12-23-2022 History of Present illness Narrative* Ron Wong MD - 09/05/2022 5:49 PM EST Patient presents with: Nausea: Pt reported + [...] 120mg 3 at night Stress, blood sugar, thyroid/hormones/adrenals/sleep/energy/toxins/muscles/constipation/asthma Work up to 3 capsules with meals at night - can cause loose stools metoprolol succinate ER (TOPROL XL) 25 mg 24 hr tablet Take half tablet in the morning and 1 tabletin the evening. esomeprazole (NEXIUM) 40 mg capsule [...] increased WOB Molnupiravir Eligibility and Patient Discussion [facility] Formulary Restriction Criteria: Adult outpatients 18 [...] whether the patient is based on the firstday of the last menstrual period in individuals [...] patient was also informed of the significant knownbenefits and potential risks of molnupiravir, and the [...] those alternatives. The patient was provided electronically withthe Fact Sheet for Patients, Parents and Caregivers. The patient was also instructed that in addition to the treatment with molnupiravir, he/she should continue to self-isolate and use infection control measures (e.g., wear mask, isolate, social distance, avoid sharing personal items, clean and disinfect high touch surfaces, and frequent handwashing) according to CDC guidelines. The patient stated understanding and gave verbal consent to proceeding with molnupiravir treatment. Ron Wong MD September 05, 2022 6:09 PM ASSESSMENT/PLAN: 1. Acute COVID-19 - ICD9: 079.89, ICD10: U07.1 Patient would like to proceed with antiviral treatment. - MOLNUPIRAVIR 200 MG CAPSULE (EUA) - 2019 CORONAVIRUS Ron Wong MD documented in this encounterAdams County Hospital12-23-2022 Miscellaneous Notes* Telephone Encounter - Josie Blankenship RN - 09/05/2022 4:59 PM EST Pt called in and reports she couldn't get connected to the [facility]. Let Pt know to come into [facility] and bring her Covid test as they are open until 8 pm. They can prescribe the antivirals to her and teen counselor her on which one to take with the medications she is already on. * Telephone Encounter - Carol Patel LPN - 09/05/2022 4:02 PM EST Patient calling said she did COVID test today and is COVID positive. Her tested positive Thursday. She has sore throat, nausea, dizziness, fatigued, began with symptoms on Thursday or Thursday.Patient was asking about oral antiviral rx. No virtual appt available this afternoon, advised can do express care on line or go to ill express care. Patient said she was going to try express care on line. documented in this encounterAdams County Hospital12-15-2022 Miscellaneous Notes* Telephone Encounter - Josie Blankenship RN - 08/28/2022 12:16 PM EST Pt called and is notified of providers results and instructions. Pt voices understanding. Pt statesjoanna had wanted her urology order to go to the OBGYN Urologist with [facility]. I told her I didn'tknow of any with [facility], and she said she had thought she had read something about one. I toldher I knew of Dr Ahmadi and Dr Prince that work with [facility] and she said no to both those names. I told her if she finds out who she wants to go to and the fax number to call us and let us know and we can fax her orders and information over. Josie Blankenship RN * Telephone Encounter - Devi Lowe LPN - 08/28/2022 9:50 AM EST Left a message for pt to call the office and ask to speak to a nurse. Devi Lowe LPN * Telephone Encounter - Al Nichole APRN.CNP - 08/28/2022 9:26 AM EST Please let patient know one of her thyroid levels were slightly low. I would like to recheck thyroid function in 3 weeks. Thank you Al Nichole APRN.CNP documented in this encounterAdams County Hospital12-07-2022 Miscellaneous Notes* Telephone Encounter - Laly Mohr LPN - 08/20/2022 11:42 AM EST Left message for patient with results and recommendations.Laly Mohr LPN * Telephone Encounter - Alice Jenkins APRN.CNP - 08/20/2022 11:31 AM EST Please notify patient that urine culture showed mixture of bacteria which suggests possible contamination upon collection. Advise her to finish the antibiotic if it is helping her symptoms but if not, then she will need to return to provide another specimen. Thank you. Alice Jenkins APRN.CNP documented in this encounterAdams County Hospital12-06-2022 History of Present illness Narrative* Lori Patel APRN.CNP - 08/19/2022 9:20 AM EST CC: Patient presents with: Urinary Frequency: Frequency, urgency, low back pain and lower abd ominal pain x 3- days Patient was seen in the ER Thursday they did not do a urine at that time. HPI Rosana Maki is a 82 year old female who [...] 120mg 3 at night Stress, blood sugar, thyroid/hormones/adrenals/sleep/energy/toxins/muscles/constipation/asthma Work up to 3 capsules with meals at night - can cause loose stools metoprolol succinate ER (TOPROL XL) 25 mg 24 hr tablet Take half tablet in the morning and 1 tabletin the evening. esomeprazole (NEXIUM) 40 mg capsule [...] mg capsule Take 1 capsule by mouth twicedaily for 5 days. One Pioneer (Pure Encapsulation) -- fish oil Take 2 [...] Patient agreeable to treatment plan. Lori Patel APRN.CNP documented in this encounterAdams County Hospital12-04-2022 Hospital Discharge instructions Additional Instructions Take the Reglan as directed to control nausea and vomiting and keep yourself well-hydrated. Your work-up is consistent with a viral stomach infection which will last on average 3 to 7 days. If you are continue to have bouts of emesis despite taking the Reglan or have any further concerns please [facility] the [facility] Work Phone: 1(834) 645-856811-28-2022 History of Present illness Narrative* Maggi Mcdaniel PA-C - 08/11/2022 1:44 PM ESTAssociated Order(s): Large Joint Arthro/Inj: R knee joint Post-Procedure Diagnose(s): Primary osteoarthritis of right knee Large Joint Arthro/Inj: R knee joint Informed Consent Consent Obtained: Verbal [place] Protocol A moment to CARE was completed. [...] Plan of Care Visit completed when applicable * Dipika Merchant Ma - 08/11/2022 1:33 PM EST Euflexxa injection # 3 into right knee. LOT # [id number] EXP 06/27/2023 Dipika Merchant Ma * Padmini Thomas RN - 08/11/2022 1:27 PM EST Patient presents with: Right Knee - Injections, Established Patient AMB ROOMING INTAKE FLOWSHEET DATA Risk Screening Do you have concerns about personal safety or safety in the home?: No Pt states no pain in right knee at this time. documented in this encounterAdams County Hospital11-21-2022 History of Present illness Narrative* Maggi Mcdaniel PA-C - 08/04/2022 1:47 PM ESTAssociated Order(s): Large Joint Arthro/Inj: R knee joint Post-Procedure Diagnose(s): Primary osteoarthritis of right knee Large Joint Arthro/Inj: R knee joint Informed Consent Consent Obtained: Verbal [place] Protocol A moment to CARE was completed. [...] Plan of Care Visit completed when applicable * Mari Conti Ma - 08/04/2022 1:32 PM EST Patient presents with: Right Knee - Injections Euflexxa injection # 2 right knee Intake information documented in the prior visit with Maggi on 07/28/22. Patient denies any pain today. LOT # [id number] EXP 06/27/2023 Mari Conti Ma documented in this encounterAdams County Hospital11-14-2022 History of Present illness Narrative* Maggi Mcdaniel PA-C - 07/28/2022 2:47 PM ESTAssociated Order(s): Large Joint Arthro/Inj: R knee joint Post-Procedure Diagnose(s): Primary osteoarthritis of right knee; Chronic pain of right knee Maggi Mcdaniel PA-C Department of Orthopaedics Orthopaedics [address] [place] [address] Dept: [phone] Dept July 28, 2022 CHIEF COMPLAINT: Established [...] injections are only helping her for a fewweeks and she is interested in trying viscosupplementation. We will start viscosupplementation injections today. Evaluated her brace and we will try switching her from a small brace to a medium. Large Joint Arthro/Inj: R knee joint Informed Consent Consent Obtained: Verbal [place] Protocol A moment to CARE was completed. [...] of Care Visit completed when applicable Ms. Rosana Maki was advised as to contrast therapies and/or [...] 120mg 3 at night Stress, blood sugar, thyroid/hormones/adrenals/sleep/energy/toxins/muscles/constipation/asthma Work up to 3 capsules with meals at night - can cause loose stools metoprolol succinate ER (TOPROL XL) 25 mg 24 hr tablet Take half tablet in the morning and 1 tabletin the evening. esomeprazole (NEXIUM) 40 mg capsule [...] 1,000 Units by mouth once daily. One Pioneer (Pure Encapsulation) -- fish oil Take 2 capsules by mouth daily with food. No current facility-administered medications for this visit. Allergies: Adhesive Tape (Rosins), Cantaloupe, Erythromycin, Grass Pollen, Mold, Penicillins, Pollen, Prevacid [Lansoprazole], and Sulfa (Sulfonamide Antibiotics) This note was partially generated using [employer] voice recognition system, and there may be some incorrect words, spellings, and punctuation that were not noted in checking the note before saving. Maggi Mcdaniel PA-C * Dipika Merchant Ma - 07/28/2022 2:26 PM EST Euflexxa injection # 1 into right knee LOT # [id number] EXP 06/27/2023 Dipika Merchant Ma * Ashley Lee RN - 07/28/2022 1:52 PM EST Patient presents with: Right Knee - Established Patient, Follow Up: Last injection 04/21/22 AMB ROOMING INTAKE FLOWSHEET DATA Risk Screening Do you have concerns about personal safety or safety in the home?: No Patient is here today for right knee followup. Last injection was given 04/21/22. Patient was wearingbrace that was given, but not sure if she was wearing it correctly. Patient seen in 07/11/22 forleg swelling. Negative for DVT. Doctor wrapped knee in BASSEM and patient has not worn brace since. Started water PT. documented in this encounterAdams County Hospital10-31-2022 Miscellaneous Notes* Telephone Encounter - Maggi Mcdaniel PA-C - 07/14/2022 8:32 AM EDT Noted, thank you. * Telephone Encounter - Dipika Merchant Ma - 07/11/2022 2:33 PM EDT Patient seen in Urgent care and sent for vascular ultrasound. Patient is negative for DVT. She did schedule a follow up in the office. * Telephone Encounter - Taryn Altamirano RN - 07/11/2022 11:08 AM EDT Patient calls office and c/o pain and swelling to R leg. States she wore her knee brace the past few days and had to remove it d/t pain and swelling. Patient concerned d/t amount of swelling and painthat developed in a short period of time. She is concerned it may be a blood clot. Advised patient to go to UC or ED to have RLE evaluated. Patient also asking if authorization has been approved by her insurance for gel injection? documented in this encounterAdams County Hospital10-29-2022 Miscellaneous Notes* Telephone Encounter - Angelic Escobar - 07/12/2022 10:14 AM EDT Patient given results and verbalized understanding of instructions given. Angelic Escobar * Telephone Encounter - Laly Mohr LPN - 07/11/2022 4:26 PM EDT Left message for patient to return call for results and recommendations.Laly Mohr LPN * Telephone Encounter - Justine Irizarry PA-C - 07/11/2022 2:40 PM EDT Let patient know her ultrasound shows no blood clot. She does have a fluid collection in the back of the knee as well, sometimes can get a cyst in the at area. Would recommend following up with orthoand continuing plan of care discussed at visit. documented in this encounterAdams County Hospital10-28-2022 History of Present illness Narrative* Justine Irizarry PA-C - 07/11/2022 2:44 PM EDT This note was created using NoteWriter. Subjective Rosana Maki is a 82 year old female. HPI Patient presents with right leg swelling over the past 2 days. She has known arthritis in her knee and was wearing a brace that was given to her from orthopedics on Thursday. She states the pain worsened in the knee so she took it off Thursday evening. She states its gotten more swollen since then.It is painful to bear weight. She does [...] 120mg 3 at night Stress, blood sugar, thyroid/hormones/adrenals/sleep/energy/toxins/muscles/constipation/asthma Work up to 3 capsules with meals at night - can cause loose stools 0 One Pioneer (Pure Encapsulation) -- fish oil Take 2 capsules by mouth daily with food. 0 metoprolol succinate ER (TOPROL XL) 25 mg 24 hr tablet Take half tablet in the morning and 1 tabletin the evening. esomeprazole (NEXIUM) 40 mg capsule [...] with orthopedics. Red flags for ER care discussed.Patient agreeable. - US LEG VEIN DVT UNL VAS LAB Justine Irizarry PA-C documented in this encounterAd[facility]10[facility] History of Present illness Narrative* Sofía Baig PA-C - 07/07/2022 10:07 AM EDT 07/07/2022 Patient presents with: Suture Removal: right [...] 120mg 3 at night Stress, blood sugar, thyroid/hormones/adrenals/sleep/energy/toxins/muscles/constipation/asthma Work up to 3 capsules with meals at night - can cause loose stools One Pioneer (Pure Encapsulation) -- fish oil Take 2 capsules by mouth daily with food. metoprolol succinate ER (TOPROL XL) 25 mg 24 hr tablet Take half tablet in the morning and 1 tabletin the evening. esomeprazole (NEXIUM) 40 mg capsule [...] healed Sofía Baig PA-C documented in this encounterAdams [facility] Hospital09-26-[facility]22 History of Present illness Narrative* Maggi Mcdaniel PA-C - 06/09/2022 12:35 PM EDT Maggi Mcdaniel PA-C Department of Orthopaedics Orthopaedics [facility] [address] Dept: [phone] Dept June 09, 2022 CHIEF COMPLAINT: Established Patient and Follow Up of the Right Knee (7wks post visit- OA right knee with injection given) Ms. Rosana Maki is a 82 year old female who presents with chronic right knee Pain, worse in the last few months. Pain is a 4-10 aching mostly along the lateral aspect of the knee. She notices the pain more with unusual motions. Initially she was doing quite well participating in physical therapy seem to be helping. Now the therapy is aggravating her knee. She has been only getting about a fewweeks relief from a corticosteroid injection. She tried [...] topical Voltaren. Patient agrees to plan. Ms. Rosana Maki was advised as to contrast therapies and/or to take analgesics/anti-inflammatories as needed and all contraindications were reviewed. OBJECTIVE: Ms. Rosana Maki is a pleasant 82 year old in [...] full extension, internal/external rotation adequate, and no painwith log roll Neurovascular Status: Sensation Intact, Moves [...] Imaging: IMPRESSION: Progressive lateral joint compartment osteoarthrosis Farm Management Agent: BO Transcribe Date/Time: Apr 21 2022 3:52P Dictated by : BRIANDA OROPEZA MD This examination was interpreted and the report reviewed and electronically signed by: BRIANDA OROPEZA MD on Apr 21 2022 3:52PM EST Results-Findings * * *Final Report* * * DATE OF EXAM: Apr 21 2022 3:26PM ZACH 5203 - XR KNEE 4V AP/PA BOTH+LAT/OSCAR RT / PROCEDURE REASON: [id number] * * * * Physician Interpretation * [...] 120mg 3 at night Stress, blood sugar, thyroid/hormones/adrenals/sleep/energy/toxins/muscles/constipation/asthma Work up to 3 capsules with meals at night - can cause loose stools metoprolol succinate ER (TOPROL XL) 25 mg 24 hr tablet Take half tablet in the morning and 1 tabletin the evening. esomeprazole (NEXIUM) 40 mg capsule [...] 1,000 Units by mouth once daily. One Pioneer (Pure Encapsulation) -- fish oil Take 2 [...] anxiety) This note was partially generated using [employer] voice recognition system, and there may be some incorrect words, spellings, and punctuation that were not noted in checking the note before saving. Maggi Mcdaniel PA-C * Mari Conti Ma - 06/09/2022 11:46 AM EDT PT ASSESSMENT - CASTING ROOM Rosana presents for Application of brace. Applied DonJoy Wrap Hinged knee brace size small to Right knee. Patient has been instructed in Care and proper application of brace. Patient signed [employer]Joy PPA electronically for billing and verbalized understanding if charged for this brace. Mari Conti Ma * Ashley Lee RN - 06/09/2022 10:52 AM EDT Patient presents with: Right Knee - Established [...] has been ongoing. Patient was seen in [place] 7 weeksago and given an injection; she was also given a brace to wear. Patient has been doing some physical therapy but the last week has not been able to go d/t intense pain. Last xray 04/21/22. documented in this encounterAdams [facility] Hospital09-02-[facility]22 History of Present illness Narrative* Rochelle Hackett MD - 05/16/2022 8:55 AM EDT Reason for Visit Patient presents with: F/U 6 months Rosana Maki is a 82 year old female who presents here today for Above Complaints.. Health Maintenance COVID-19 VACCINE(5 - Booster for Pfizer series) INFLUENZA(1) HPI. Rosana G Figge is a 81 year old female who presents today for annual exam with multiple complaints and chronic issues. Does not currently exercise. Tries to stick with an overall healthy diet her main challenge is giving up sweet stuff. Neurologist thinks she has a MCI. One concern is that her ankles are swollen on and off, she is on sodium and fludrocortisone but herbp was high, so she was stopped the sodium and the fludricort is helping with the BP etc. Balance and Strength issues: Has seen physical therapy for this previously and would like to again.been with Physical therapy previously for this. Denies any falls, but states she has to hold onto things to steady herself at times. Does not require any assistance with ambulation. Also has Chronic right shoulder pain and chronic right knee pain. Gets injections regularly for both of these. Statesphysical therapy has helped in the past with [...] when she does this and needs to startagain. 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 States she drinks the correct amount of water she measures out every morning with the electrolytes as she is instructed by nephrology. Sodium level has been normal and no recent concerns. States when her sodium and electrolytes are notnormal, she has stroke like symptoms and can even pass out. Denies any recent events with this. GERD: has intermittent pain to mid upper abdomen. Has statrted taking pepcid at night for the past few days. Denies increasing abdominal pain, vomiting, dark sticky stools, bright red blood in stools, or difficulty swallowing. Atrial Fibrillation - sees Dr. Cooley at [place] [facility], last saw a few months [...] 120mg 3 at night Stress, blood sugar, thyroid/hormones/adrenals/sleep/energy/toxins/muscles/constipation/asthma One Pioneer (Pure Encapsulation) -- fish oil metoprolol succinate [...] BP Cuff Size: Regular Adult) Pulse 62 Temp36 C (96.8 F) Resp 12 Ht 170.2 cm (5' 7) Wt 53.5 kg (118 lb) SpO2 99% [...] worsened, it is the same as before. Rochelle Hackett MD documented in this encounterAdams County Hospital08-08-2022 History of Present illness Narrative* Jessy Pina PA-C - 04/21/2022 4:19 PM EDTAssociated Order(s): Large Joint Arthro/Inj: R knee joint Post-Procedure Diagnose(s): Primary osteoarthritis of right knee Ms. Rosana Maki presents today for right knee corticosteroid injection. She has known right knee osteoarthritis and has been treated with injections in the past. Her last right knee injection was 06/17/2021. She was also fit for and given a right knee lateral sparing OA reaction brace. Large Joint Arthro/Inj: R knee joint Informed Consent Consent Obtained: Verbal [place] Protocol A moment to CARE was completed. [...] applicable Jessy Pina PA-C documented in this encounterAdams County Hospital08-08-2022 Miscellaneous Notes* [facility] - Anayeli Patel RT(R) - 04/21/2022 2:30 PM EDT Radiology Service Progress Note PATIENT NAME: Rosana Maki DATE OF SERVICE: April 21, 2022 TIME: 3:27 PM PATIENT IDENTITY VERIFICATION COMPLETED USING TWO (2) IDENTIFIERS: Name and Date of confirmedby patient verbally. FALL SCREENING: Has the patient had 2 falls in the last year or 1 fall with injury or currently using an Ambulatory Assistive Device (Walker, Cane, Wheelchair, Crutches, etc.)? No PATIENT GENDER DATA: Female. status: : No status: NO. PATIENT RELEVANT IMPLANT DATA REVIEWED: Not Applicable RADIOLOGY DEPARTMENT: General X-ray: Exam(s) Completed: Lower Extremity X- Ray(s): Knee, AP / Lat / Tunne / Merchant Right PERIPHERAL IV DATA: Not applicable SIGNED BY: RT Shalom(R) April 21, 2022 3:27 PM documented in this encounterAdams County Hospital05-27-2022 History of Present illness Narrative* Alice Jenkins APRN.FLIGHT FOLLOWER - 02/07/2022 10:19 AM EDT Subjective The history is provided by the patient. No dialysis patient care technician was used. HPI Rosana Maki is a 82 year old female who [...] and edited as necessary, the [facility] Review of Systems Constitutional: Negative for chills [...] in 24-48 hours with results, available on [email or web address] - ASYMPTOMATIC ELECTIVE COVID-19 Diagnosis and treatment plan were discussed and questions were answered to the patient's satisfaction. Pt acknowledged understanding of concepts and follow up plan. Specific signs and symptoms that would indicate the need for higher level of care were discussed indetail warranting prompt ER evaluation. Alice Jenkins APRN.NIKO documented in this encounterAdams County Hospital05-23-2022 Miscellaneous Notes* Telephone Encounter - Rochelle Hackett MD - 02/03/2022 7:56 PM EDT Sure, I hope she does not get the covid we need to just wait and watch Regards, Rochelle Hackett MD * Telephone Encounter - Josie Blankenship RN - 02/03/2022 3:52 PM EDT Pt called in and reports that her [...] with SARS-CoV-2, the virus that causes COVID-19, frompeople who are not infected. People who are [...] to your local emergency facility: Notify the long distance operator that you are seeking care for [...] expert at your local health department to determinewhen you can be around others. documented in this encounterAdams County Hospital05-09-2022 Miscellaneous Notes* Telephone Encounter - Gauri Sanchez LPN - 01/20/2022 11:42 AM EDT Patient notified of results. Gauri Sanchez LPN * Telephone Encounter - Al Nichole APRN.CNP - 01/20/2022 9:44 AM EDT Please let patient know that I have reviewed Recent lab work and it is within acceptable ranges andsimilar to previous results. Thank you Al Nichole APRN.CNP documented in this encounterAdams County Hospital04-25-2022 Miscellaneous Notes* Telephone Encounter - Gauri Sanchez LPN - 01/06/2022 8:52 AM EDT Patient has been identified by name and [...] you. Gauri Sanchez LPN documented in this encounterAdams County Hospital04-20-2022 Miscellaneous Notes* Telephone Encounter - Cristina Munson Ma - 01/01/2022 4:46 PM EDT No results yet received. * Telephone Encounter - Evangelina Lai LPN - 12/26/2021 11:03 AM EDT Pt called back & was notified of [...] correct results to provider. Evangelina Lai LPN * Telephone Encounter - Al Nichole APRN.CNP - 12/25/2021 12:13 PM EDT Lab work had been ordered by Dr. Enciso and results should be reviewed with him. Is there other labwork that possibly isn't scanned in yet? Thank you Al Nichole APRN.NIKO * Telephone Encounter - Yuli Delgado RN - 12/24/2021 4:44 PM EDT Patient calls and states that she had labs done in November at [facility]. Please advise on labs. Please review and advise, Yuli Delgado RN documented in this encounterAdams County Hospital04-18-2022 Miscellaneous Notes* Telephone Encounter - Magdiel Villalba Ma - 12/30/2021 9:24 AM EDT Pt notified via [email or web address]. * Telephone Encounter - Josie Blankenship RN - 12/25/2021 12:12 PM EDT Called and left a voicemail for the Patient to call back and ask for a nurse to receive the providers message. Josie Blankenship RN * Telephone Encounter - Al Nichole APRN.CNP - 12/25/2021 12:07 PM EDT Please let patient know that I have reordered the meclizine. Thank you Al Nichole APRN.NIKO * Telephone Encounter - Yuli Delgado RN - 12/24/2021 4:46 PM EDT Patient calls and states that meclizine is the only thing that has worked for her. Asking if new prescription can be sent to [facility] pharmacy? Please review and advise, Yuli Delgado RN * Telephone Encounter - Cristina Munson Ma - 11/22/2021 3:14 PM EST Left message for return call. * Telephone Encounter - Al Nichole APRN.CNP - 11/22/2021 2:45 PM EST I absolutely can put in a consult to GI. What kind of stomach medicine does she feel she needs? Theesomeprazole in Am and Pepcid in PM Is what she should be taking now. Does she need zofran for nausea? If so I can order this for her. Thank you Al Nichole APRN.NIKO * Telephone Encounter - Yamilet Dotson RN - 11/22/2021 2:10 PM EST Patient had recent visit with Al Nichole on 11/13/21 and patient stated she had chronic nausea. Cuauhtemoc saw ENT in past for this and there is nothing they can do. She states she takes nexium and pepcid at this time. She is asking if Al Nichole would order her an additional stomach medication to helpwith the stomach irritation that she is having daily. Requesting [facility] pharmacy in [place]. Patient also asking if she can have a referral for GI consult due to stomach issues? She would liketo see Dr. Sharma possibly since she has done a colonoscopy on her in the past. Please call patient with provider's response. Thank you. documented in this encounterAdams County Hospital07-13-2021 History of Present illness Narrative* Diana Meadows RT(R) - 03/26/2021 2:30 PM EDT Radiology Service Progress Note PATIENT NAME: Rosana Maki DATE OF SERVICE: March 26, 2021 TIME: 2:42 PM PATIENT IDENTITY VERIFICATION COMPLETED USING TWO (2) IDENTIFIERS: Name and Date of confirmedby patient verbally. FALL SCREENING: Has the patient had 2 falls in the last year or 1 fall with injury or currently using an Ambulatory Assistive Device (Walker, Cane, Wheelchair, Crutches, etc.)? No PATIENT GENDER DATA: Male PATIENT RELEVANT IMPLANT DATA REVIEWED: Not Applicable RADIOLOGY DEPARTMENT: General X-ray: Exam(s) Completed: Lower Extremity X- Ray(s): Knee, AP / Lat / Tunne / Merchant Right and Wt. Bearing PERIPHERAL IV DATA: Not applicable SIGNED BY: RT Patrick(R) March 26, 2021 2:42 PM documented in this encounterAdams County Hospital03-06-2020 History of Past illness Narrative* Problem [...] of this encounter (statuses as of 11/14/2022) [facility] Narrative* Problem [...] of this encounter (statuses as of 01/15/2023) [facility] Narrative* Problem [...] of this encounter (statuses as of 04/08/2023) [facility] Narrative* Problem [...] of this encounter (statuses as of 04/09/2023) [facility] Narrative* Problem [...] of this encounter (statuses as of 04/16/2023) [facility] Narrative* Problem [...] of this encounter (statuses as of 04/16/2023) [facility] Narrative* Problem [...] of this encounter (statuses as of 04/21/2023) [facility] Narrative* Problem [...] of this encounter (statuses as of 04/21/2023) [facility] Narrative* Problem [...] of this encounter (statuses as of 04/24/2023) [facility] Narrative* Problem [...] of this encounter (statuses as of 05/05/2023) [facility] Narrative* Problem [...] of this encounter (statuses as of 05/08/2023) [facility] Narrative* Problem [...] of this encounter (statuses as of 05/08/2023) [facility] Narrative* Problem [...] of this encounter (statuses as of 07/10/2023) [facility] Narrative* Problem [...] of this encounter (statuses as of 07/23/2023) [facility] Narrative* Problem [...] of this encounter (statuses as of 07/29/2023) [facility] Narrative* Problem [...] of this encounter (statuses as of 08/10/2023) [facility]ative* Problem [...] of this encounter (statuses as of 08/17/2023) [facility] Narrative* Problem [...] of this encounter (statuses as of 10/21/2023) [facility]arrative* Problem [...] of this encounter (statuses as of 10/23/2023) [facility]* Problem [...] of this encounter (statuses as of 10/30/2023) [facility]* Problem [...] of this encounter (statuses as of 11/02/2023) [facility]* Problem [...] of this encounter (statuses as of 11/02/2023) [facility] Narrative* Problem [...] of this encounter (statuses as of 11/18/2023) [facility] Narrative* Problem [...] as of this encounter (statuses as of 12/15/2023) [facility] note* Diagnosis Onset Date Resolution Status 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, 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 Anemia chronic 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, 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 Vaginal dryness chronic 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 Mild cognitive impairment ch ronic SIADH (syndrome of inappropriate ADH production) [facility] Work Phone: 1(700) 607-893208-01-2017 Evaluation note* Diagnosis Onset Date Resolution Status 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, 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 Anemia chronic 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, 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 Vaginal dryness chronic Mild cognitive impairment ch ronic SIADH (syndrome of inappropriate ADH production) [facility] Work Phone: 1(554) 818-413508-01-2017 Evaluation note* Diagnosis Onset Date Resolution Status Polyneuropathy acute Mild cognitive impairment ch ronic 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, 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 Anemia chronic 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, 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 Vaginal dryness chronic Hyponatremia with decreased serum osmolality acute Nonrheumatic mitral (valve) prolapse chronic Paroxysmal atrial fibrillation [facility] Work Phone: 1(442) 562-273408-01-2017 Evaluation note* Diagnosis Onset Date Resolution Status Polyneuropathy acute Mild cognitive impairment ch ronic 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, 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 Anemia chronic 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, 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 Vaginal dryness chronic Hyponatremia with decreased serum osmolality acute Nonrheumatic mitral (valve) prolapse chronic Paroxysmal atrial fibrillation chronic Chest pain, unspecified acut e Fatigue acute Hyponatremia with decreased serum osmolality acute Nonrheumatic mitral (valve) prolapse chronic Paroxysmal atrial fibrillation [facility] Work Phone: 1(379) 875-269308-01-2017 Evaluation note* Diagnosis Onset Date Resolution Status Anemia chronic 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, 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 Vaginal dryness chronic Breast pain, right acute 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, 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 Breast pain, right acute 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, 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 Fatigue acute Acute hyponatremia resolved Intractable nausea and vomiting resolved Fatigue acute Fatigue acute Hyponatremia with decreased serum osmolality acute Nonrheumatic mitral (valve) prolapse chronic Paroxysmal atrial fibrillation [facility] Work Phone: 1(651) 938-926804-07-2016 History of Past illness Narrative* Problem Noted [...] of this encounter (statuses as of 12/30/2021) [facility] N[facility]* Problem [...] of this encounter (statuses as of 01/01/2022) [facility] N[facility]ative* Problem [...] of this encounter (statuses as of 01/06/2022) [address]07-2016 History of Past illness Narrative* Problem [...] of this encounter (statuses as of 01/20/2022) [facility] Narrative* Problem [...] of this encounter (statuses as of 02/07/2022) [facility] Narrative* Problem [...] of this encounter (statuses as of 04/17/2022) [facility] Narrative* Problem [...] of this encounter (statuses as of 04/21/2022) [facility] Narrative* Problem [...] of this encounter (statuses as of 04/22/2022) [facility]* Problem [...] of this encounter (statuses as of 05/02/2022) [facility] Narrative* Problem [...] of this encounter (statuses as of 05/16/2022) [facility]* Problem [...] of this encounter (statuses as of 06/09/2022) [facility]arrative* Problem [...] of this encounter (statuses as of 07/07/2022) [facility]* Problem [...] of this encounter (statuses as of 07/11/2022) [facility]arrative* Problem [...] of this encounter (statuses as of 07/12/2022) [facility] Narrative* Problem [...] of this encounter (statuses as of 07/14/2022) [facility]arrative* Problem [...] of this encounter (statuses as of 07/29/2022) [facility]arrative* Problem [...] of this encounter (statuses as of 08/04/2022) [facility]* Problem [...] of this encounter (statuses as of 08/11/2022) [address]2016 History of Past illness Narrative* Problem [...] of this encounter (statuses as of 08/19/2022) [facility]* Problem [...] of this encounter (statuses as of 08/20/2022) [facility]arrative* Problem [...] of this encounter (statuses as of 08/28/2022) [facility]* Problem [...] of this encounter (statuses as of 09/07/2022) [facility]ative* Problem [...] of this encounter (statuses as of 09/07/2022) [facility]ative* Problem [...] of this encounter (statuses as of 09/08/2022) [facility]arrative* Problem [...] of this encounter (statuses as of 10/30/2022) [facility] complaint+Reason for visit Narrative* Chief Complaint SCREENING 2 ORDERING DRS/ ROXANN AND FERNIE 4 M FU EORDER COVID-19 RT SHOULDER/RX HERE 3 M FU R KNEE. RX HERE n/v chest pain, fast heart rate Reason for Visit Anemia Cerebrovascular disease Edema of both legs Mild cognitive impairment SIADH (syndrome of inappropriate ADH production) Encounter for screening for COVID-19 Hyponatremia with decreased serum osmolality Nonrheumatic mitral (valve) prolapse Paroxysmal atrial fibrillation [facility] Work Phone: Evaluation note* Diagnosis Nausea Nausea alone Dizziness Dizziness and giddiness [facility]* Diagnosis Exposure to COVID-19 virus- [facility] Diagnosis Onset Date Resolution Status 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 Mild cognitive impairment ch ronic 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 Chest pain, unspecified acut e Fatigue acute Hyponatremia with decreased serum osmolality acute Nonrheumatic mitral (valve) prolapse chronic Paroxysmal atrial fibrillation chronic [facility] Work Phone: Evaluation note* Diagnosis Onset Date Resolution Status Chest pain, unspecified acut e Fatigue acute Hyponatremia with decreased serum osmolality acute Nonrheumatic mitral (valve) prolapse chronic Paroxysmal atrial fibrillation chronic 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, 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 Anemia chronic 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, 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 Vaginal dryness chronic [facility] Work Phone: Evaluation note* Diagnosis Pain- Primary Generalized pain documented in this encounter [facility] [place] note* Diagnosis Primary osteoarthritis of right knee- Primary Primary localized osteoarthrosis, lower leg Acquired genu valgum of right knee documented in this encounter [facility] [place] note* Diagnosis Pain [facility] Medication management Encounter for long-term (current) use of other medications [facility] this [facility]* Diagnosis 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 Paroxysmal atrial fibrillation (HCC) Atrial fibrillation Dizziness and giddiness Chronic fatigue disorder Chronic fatigue syndrome Mild cognitive disorder Unspecified persistent mental disorders due to conditions classified elsewhere [facility] Diagnosis Onset Date Resolution Status Chest pain, unspecified acut e Fatigue acute Hyponatremia with decreased serum osmolality acute Nonrheumatic mitral (valve) prolapse chronic Paroxysmal atrial fibrillation chronic 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, 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 Anemia chronic 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, 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 Vaginal dryness chronic Anemia chronic 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 Edema of both legs chronic Mild cognitive impairment ch ronic 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 [facility] Work Phone: Evaluation note* Diagnosis Primary osteoarthritis of right knee- Primary Primary localized osteoarthrosis, lower leg Chronic pain of right knee [facility] Diagnosis Onset Date Resolution Status Chest pain, unspecified acut e Fatigue acute Hyponatremia with decreased serum osmolality acute Nonrheumatic mitral (valve) prolapse chronic Paroxysmal atrial fibrillation chronic 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, 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 Anemia chronic 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, 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 Vaginal dryness chronic Anemia chronic 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 Edema of both legs chronic Mild cognitive impairment ch ronic 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 Encounter for screening for COVID-19 acute [facility] Work Phone: Evaluation note* Diagnosis Visit for suture removal- Primary Encounter for removal of sutures Laceration of right index finger without damage to nail, foreign body presence unspecified, initial encounter [facility] Right leg swelling- Primary Swelling of limb [facility] Diagnosis Primary osteoarthritis of right knee- Primary Primary localized osteoarthrosis, lower leg Chronic pain of right knee [facility] Primary osteoarthritis of right knee- Primary Primary localized osteoarthrosis, lower leg [facility]* Diagnosis Onset Date Resolution Status Anemia chronic 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 Edema of both legs chronic Mild cognitive impairment ch ronic 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 Encounter for screening for COVID-19 acute Hyponatremia with decreased serum osmolality acute Nonrheumatic mitral (valve) prolapse chronic Paroxysmal atrial fibrillation chronic [facility] Work Phone: Evaluation note* Diagnosis Urinary frequency- Primary [facility] Diagnosis Abnormal thyroid blood test- Primary Nonspecific abnormal results of thyroid function study Other fatigue [facility]* Diagnosis Acute COVID-19- Primary [facility] Diagnosis Acute COVID-19 [facility]* Diagnosis Urinary incontinence, unspecified type- Primary Paroxysmal atrial fibrillation (HCC) Atrial fibrillation SIADH (syndrome of inappropriate ADH production) ([facility]) Other disorders of neurohypophysis Chronic fatigue disorder Chronic fatigue syndrome Dizziness and giddiness Mild cognitive disorder Unspecified persistent mental disorders due to conditions classified elsewhere Major depressive disorder, recurrent, in partial remission ([facility]) Major depressive disorder, recurrent episode, in partial or unspecified remission [facility] Diagnosis Onychomycosis- Primary Dermatophytosis of nail Diminished pulses in lower extremity Other symptoms involving cardiovascular system Protein-calorie malnutrition, unspecified severity ([facility]) documented [facility]* Diagnosis Onset Date Resolution Status Hyponatremia with decreased serum osmolality acute Nonrheumatic mitral (valve) prolapse chronic Paroxysmal atrial fibrillation chronic Polyneuropathy acute Mild cognitive impairment ch ronic 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 [facility] Work Phone: Evaluation note* Diagnosis Black-out (not amnesia)- Primary Syncope and collapse [facility]* Diagnosis Onset Date Resolution Status Hyponatremia with decreased serum osmolality acute Nonrheumatic mitral (valve) prolapse chronic Paroxysmal atrial fibrillation chronic Polyneuropathy acute Mild cognitive impairment ch ronic 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, 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 Anemia chronic 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, 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 Vaginal dryness [facility] Work Phone: Evaluation note* Diagnosis Diarrhea, unspecified type- Primary [facility] Diagnosis APPOINTMENT CANCELLED- Primary documented [facility]* Diagnosis Medication management Encounter for long-term (current) use of other medications [facility] Diagnosis Onset Date Resolution Status Hyponatremia with decreased serum osmolality acute Nonrheumatic mitral (valve) prolapse chronic Paroxysmal atrial fibrillation chronic Polyneuropathy acute Mild cognitive impairment ch ronic 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, 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 Anemia chronic 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, 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 Vaginal dryness chronic Hyponatremia with decreased serum osmolality acute Nonrheumatic mitral (valve) prolapse chronic Paroxysmal atrial fibrillation [facility] Work Phone: Evaluation note* Diagnosis Hyponatremia- Primary Hyposmolality and/or hyponatremia [facility] Diagnosis Anxiety and depression- Primary Dysthymic disorder Nausea Nausea alone Dizziness Dizziness and giddiness Diarrhea, unspecified type Paroxysmal atrial fibrillation (HCC) Atrial fibrillation Hyponatremia Hyposmolality and/or hyponatremia Chronic fatigue disorder Chronic fatigue syndrome Gastroesophageal reflux disease, unspecified whether esophagitis present [facility] Diagnosis Diarrhea, unspecified type- Primary 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) Other disorders of neurohypophysis Hyponatremia Hyposmolality and/or hyponatremia Anxiety Anxiety state, unspecified Chronic pain of right knee Need for influenza vaccination Need for prophylactic vaccination and inoculation against influenza [facility] Diagnosis Right knee pain, unspecified chronicity- Primary [facility] Diagnosis Primary osteoarthritis of right knee- Primary Primary localized osteoarthrosis, lower leg Chronic pain of right knee [facility] Diagnosis Onset Date Resolution Status Hyponatremia with decreased serum osmolality acute Nonrheumatic mitral (valve) prolapse chronic Paroxysmal atrial fibrillation chronic Chest pain, unspecified acut e Fatigue acute Hyponatremia with decreased serum osmolality acute Nonrheumatic mitral (valve) prolapse chronic Paroxysmal atrial fibrillation chronic [facility] Work Phone: Evaluation note* Diagnosis Chronic pain of right knee- Primary Primary osteoarthritis of right knee Primary localized osteoarthrosis, lower leg [facility] Diagnosis Onset Date Resolution Status Chest pain, unspecified acut e Fatigue acute Hyponatremia with decreased serum osmolality acute Nonrheumatic mitral (valve) prolapse chronic Paroxysmal atrial fibrillation chronic Abnormality of gait and mobility acute Fatigue acute Orthostatic hypotension acut e Polyneuropathy acute Sarcopenia acute Mild cognitive impairment ch ronic 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 [facility] Work Phone: Evaluation note* Diagnosis Onset Date Resolution Status Chest pain, unspecified acut e Fatigue acute Hyponatremia with decreased serum osmolality acute Nonrheumatic mitral (valve) prolapse chronic Paroxysmal atrial fibrillation chronic Abnormality of gait and mobility acute Fatigue acute Orthostatic hypotension acut e Polyneuropathy acute Sarcopenia acute Mild cognitive impairment ch ronic 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 Anemia chronic 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, 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 Vaginal dryness chronic Breast pain, right acute 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, 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 Breast pain, right acute 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, 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 [facility] Work Phone: Evaluation note* Diagnosis Mastodynia- Primary Costochondritis Tietze's disease [facility] Diagnosis TIA (transient ischemic attack)- Primary Unspecified transient cerebral ischemia Aphasia Ocular migraine Other forms of migraine, without mention of intractable migraine without mention of status migrainosus Yeast dermatitis Candidiasis of skin and nails [facility] Diagnosis TIA (transient ischemic attack) Unspecified transient cerebral ischemia Aphasia Ocular migraine Other forms of migraine, without mention of intractable migraine without mention of status migrainosus [facility] Diagnosis Onset Date Resolution Status Abnormality of gait and mobility acute Fatigue acute Orthostatic hypotension acut e Polyneuropathy acute Sarcopenia acute Mild cognitive impairment ch ronic 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 Anemia chronic 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, 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 Vaginal dryness chronic Breast pain, right acute 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, 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 Breast pain, right acute 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, 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 Fatigue acute Acute hyponatremia acute History of atrial flutter ac uma Intractable nausea and vomiting acute [facility] Work Phone: Evaluation note* Diagnosis Onset Date Resolution Status Abnormality of gait and mobility acute Fatigue acute Orthostatic hypotension acut e Polyneuropathy acute Sarcopenia acute Mild cognitive impairment ch ronic 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 Anemia chronic 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, 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 Vaginal dryness chronic Breast pain, right acute 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, 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 Breast pain, right acute 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, 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 Fatigue acute Acute hyponatremia resolved Intractable nausea and vomiting resolved Fatigue acute [facility] Work Phone: Evaluation note* Diagnosis Urinary incontinence, unspecified type- Primary Urinary tract infection without hematuria, site unspecified [facility] Diagnosis Onset Date Resolution Status Abnormality of gait and mobility acute Fatigue acute Orthostatic hypotension acut e Polyneuropathy acute Sarcopenia acute Mild cognitive impairment ch ronic 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 Anemia chronic 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, 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 Vaginal dryness chronic Breast pain, right acute 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, 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 Breast pain, right acute 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, 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 Fatigue acute Acute hyponatremia resolved Intractable nausea and vomiting resolved Fatigue acute Fatigue acute [facility] Work Phone: Evaluation note* Diagnosis Vitamin B12 deficiency- Primary Other B-complex deficiencies Iron deficiency anemia, unspecified iron deficiency anemia type Protein-calorie malnutrition, unspecified severity (HCC) Malignant neoplasm of upper-inner quadrant of left breast in female, 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, recurrent, in partial remission (HCC) Major depressive disorder, recurrent episode, in partial or unspecified remission Osteoporosis, unspecified osteoporosis type, unspecified pathological fracture presence Mild cognitive disorder Unspecified persistent mental disorders due to conditions classified elsewhere [facility]* Diagnosis Mild cognitive impairment- Primary Mild cognitive impairment, so stated [facility]* Diagnosis Onychomycosis- Primary Dermatophytosis of nail Ingrowing toenail Ingrowing nail [facility]* Diagnosis Persistent atrial fibrillation (HCC)- Primary Atrial fibrillation Recurrent major depression in partial remission (HCC) Major depressive disorder, recurrent episode, in partial or unspecified remission Closed wedge compression fracture of lumbar vertebra, unspecified lumbar vertebral level, sequela Osteopenia Disorder of bone and cartilage, unspecified Hyponatremia Hyposmolality and/or hyponatremia Need for vaccination Need for prophylactic vaccination and inoculation against unspecified single disease Medicare annual wellness visit, subsequent- Primary Routine general medical examination at a health care facility Persistent atrial fibrillation (HCC) Atrial fibrillation Malignant neoplasm of upper-inner quadrant of left breast in female, estrogen receptor positive (HCC) Recurrent major depression in partial remission (HCC) Major depressive disorder, recurrent episode, in partial or unspecified remission Palpitations Hyponatremia- Primary Hyposmolality and/or hyponatremia Chronic fatigue disorder Chronic fatigue syndrome Persistent atrial fibrillation (HCC) Atrial fibrillation Dizziness and giddiness Nail fungus Dermatophytosis of nail Need for vaccination Need for prophylactic vaccination and inoculation against unspecified single disease 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) Other disorders of neurohypophysis Medication management Encounter for long-term (current) use of other medications [facility] Diagnosis Persistent atrial fibrillation (HCC)- Primary Atrial fibrillation Recurrent major depression in partial remission (HCC) Major depressive disorder, recurrent episode, in partial or unspecified remission Closed wedge compression fracture of lumbar vertebra, unspecified lumbar vertebral level, sequela Osteopenia Disorder of bone and cartilage, unspecified Hyponatremia Hyposmolality and/or hyponatremia Need for vaccination Need for prophylactic vaccination and inoculation against unspecified single disease Medicare annual wellness visit, subsequent- Primary Routine general medical examination at a health care facility Persistent atrial fibrillation (HCC) Atrial fibrillation Malignant neoplasm of upper-inner quadrant of left breast in female, estrogen receptor positive (HCC) Recurrent major depression in partial remission (HCC) Major depressive disorder, recurrent episode, in partial or unspecified remission Palpitations Hyponatremia- Primary Hyposmolality and/or hyponatremia Chronic fatigue disorder Chronic fatigue syndrome Persistent atrial fibrillation (HCC) Atrial fibrillation Dizziness and giddiness Nail fungus Dermatophytosis of nail Need for vaccination Need for prophylactic vaccination and inoculation against unspecified single disease 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) Other disorders of neurohypophysis Frail elderly- Primary Senility without mention of psychosis Exhaustion Other malaise and fatigue Sleep apnea, unspecified type Vitamin D deficiency Unspecified vitamin D deficiency Iron deficiency Iron deficiency anemia, unspecified Other fatigue [facility] Diagnosis Persistent atrial fibrillation (HCC)- Primary Atrial fibrillation Recurrent major depression in partial remission (HCC) Major depressive disorder, recurrent episode, in partial or unspecified remission Closed wedge compression fracture of lumbar vertebra, unspecified lumbar vertebral level, sequela Osteopenia Disorder of bone and cartilage, unspecified Hyponatremia Hyposmolality and/or hyponatremia Need for vaccination Need for prophylactic vaccination and inoculation against unspecified single disease Medicare annual wellness visit, subsequent- Primary Routine general medical examination at a health care facility Persistent atrial fibrillation (HCC) Atrial fibrillation Malignant neoplasm of upper-inner quadrant of left breast in female, estrogen receptor positive (HCC) Recurrent major depression in partial remission (HCC) Major depressive disorder, recurrent episode, in partial or unspecified remission Palpitations Hyponatremia- Primary Hyposmolality and/or hyponatremia Chronic fatigue disorder Chronic fatigue syndrome Persistent atrial fibrillation (HCC) Atrial fibrillation Dizziness and giddiness Nail fungus Dermatophytosis of nail Need for vaccination Need for prophylactic vaccination and inoculation against unspecified single disease 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) Other disorders of neurohypophysis Diarrhea, unspecified type [facility] Diagnosis Persistent atrial fibrillation (HCC)- Primary Atrial fibrillation Recurrent major depression in partial remission (HCC) Major depressive disorder, recurrent episode, in partial or unspecified remission Closed wedge compression fracture of lumbar vertebra, unspecified lumbar vertebral level, sequela Osteopenia Disorder of bone and cartilage, unspecified Hyponatremia Hyposmolality and/or hyponatremia Need for vaccination Need for prophylactic vaccination and inoculation against unspecified single disease Medicare annual wellness visit, subsequent- Primary Routine general medical examination at a health care facility Persistent atrial fibrillation (HCC) Atrial fibrillation Malignant neoplasm of upper-inner quadrant of left breast in female, estrogen receptor positive (HCC) Recurrent major depression in partial remission (HCC) Major depressive disorder, recurrent episode, in partial or unspecified remission Palpitations Hyponatremia- Primary Hyposmolality and/or hyponatremia Chronic fatigue disorder Chronic fatigue syndrome Persistent atrial fibrillation (HCC) Atrial fibrillation Dizziness and giddiness Nail fungus Dermatophytosis of nail Need for vaccination Need for prophylactic vaccination and inoculation against unspecified single disease 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) Other disorders of neurohypophysis Ingrowing toenail- Primary Ingrowing nail [facility] Diagnosis Persistent atrial fibrillation (HCC)- Primary Atrial fibrillation Recurrent major depression in partial remission (HCC) Major depressive disorder, recurrent episode, in partial or unspecified remission Closed wedge compression fracture of lumbar vertebra, unspecified lumbar vertebral level, sequela Osteopenia Disorder of bone and cartilage, unspecified Hyponatremia Hyposmolality and/or hyponatremia Need for vaccination Need for prophylactic vaccination and inoculation against unspecified single disease Medicare annual wellness visit, subsequent- Primary Routine general medical examination at a health care facility Persistent atrial fibrillation (HCC) Atrial fibrillation Malignant neoplasm of upper-inner quadrant of left breast in female, estrogen receptor positive (HCC) Recurrent major depression in partial remission (HCC) Major depressive disorder, recurrent episode, in partial or unspecified remission Palpitations Hyponatremia- Primary Hyposmolality and/or hyponatremia Chronic fatigue disorder Chronic fatigue syndrome Persistent atrial fibrillation (HCC) Atrial fibrillation Dizziness and giddiness Nail fungus Dermatophytosis of nail Need for vaccination Need for prophylactic vaccination and inoculation against unspecified single disease 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) Other disorders of neurohypophysis Acute pain of right knee [facility] Diagnosis Persistent atrial fibrillation (HCC)- Primary Atrial fibrillation Recurrent major depression in partial remission (HCC) Major depressive disorder, recurrent episode, in partial or unspecified remission Closed wedge compression fracture of lumbar vertebra, unspecified lumbar vertebral level, sequela Osteopenia Disorder of bone and cartilage, unspecified Hyponatremia Hyposmolality and/or hyponatremia Need for vaccination Need for prophylactic vaccination and inoculation against unspecified single disease Medicare annual wellness visit, subsequent- Primary Routine general medical examination at a health care facility Persistent atrial fibrillation (HCC) Atrial fibrillation Malignant neoplasm of upper-inner quadrant of left breast in female, estrogen receptor positive (HCC) Recurrent major depression in partial remission (HCC) Major depressive disorder, recurrent episode, in partial or unspecified remission Palpitations Hyponatremia- Primary Hyposmolality and/or hyponatremia Chronic fatigue disorder Chronic fatigue syndrome Persistent atrial fibrillation (HCC) Atrial fibrillation Dizziness and giddiness Nail fungus Dermatophytosis of nail Need for vaccination Need for prophylactic vaccination and inoculation against unspecified single disease 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) Other disorders of neurohypophysis Open wound of toe, initial encounter- Primary [facility] Diagnosis Persistent atrial fibrillation (HCC)- Primary Atrial fibrillation Recurrent major depression in partial remission (HCC) Major depressive disorder, recurrent episode, in partial or unspecified remission Closed wedge compression fracture of lumbar vertebra, unspecified lumbar vertebral level, sequela Osteopenia Disorder of bone and cartilage, unspecified Hyponatremia Hyposmolality and/or hyponatremia Need for vaccination Need for prophylactic vaccination and inoculation against unspecified single disease Medicare annual wellness visit, subsequent- Primary Routine general medical examination at a health care facility Persistent atrial fibrillation (HCC) Atrial fibrillation Malignant neoplasm of upper-inner quadrant of left breast in female, estrogen receptor positive (HCC) Recurrent major depression in partial remission (HCC) Major depressive disorder, recurrent episode, in partial or unspecified remission Palpitations Hyponatremia- Primary Hyposmolality and/or hyponatremia Chronic fatigue disorder Chronic fatigue syndrome Persistent atrial fibrillation (HCC) Atrial fibrillation Dizziness and giddiness Nail fungus Dermatophytosis of nail Need for vaccination Need for prophylactic vaccination and inoculation against unspecified single disease 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) Other disorders of neurohypophysis Sleep apnea, unspecified type- Primary [facility] Diagnosis Onset Date Resolution Status Chest pain, unspecified acut e Fatigue acute Hyponatremia with decreased serum osmolality acute Nonrheumatic mitral (valve) prolapse chronic Paroxysmal atrial fibrillation [facility] Work Phone: Evaluation note* Diagnosis Atrial fibrillation- Primary Sleep apnea, obstructive Obstructive sleep apnea (adult) (pediatric) Osteoporosis Osteoporosis, unspecified Sinus pause Other heart block Atrial fibrillation- Primary A-fib Atrial fibrillation 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 Sinus pause Other heart block Atrial fibrillation Sleep apnea, obstructive Obstructive sleep apnea (adult) (pediatric) Osteoporosis Osteoporosis, unspecified Chronic hyponatremia Hyposmolality and/or hyponatremia Chronic hyponatremia Hyposmolality and/or hyponatremia Hypersomnia- Primary Hypersomnia, unspecified [facility] Atrial fibrillation- Primary Sleep apnea, obstructive Obstructive sleep apnea (adult) (pediatric) Osteoporosis Osteoporosis, unspecified Sinus pause Other heart block Atrial fibrillation- Primary A-fib Atrial fibrillation 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 Sinus pause Other heart block Atrial fibrillation Sleep apnea, obstructive Obstructive sleep apnea (adult) (pediatric) Osteoporosis Osteoporosis, unspecified Chronic hyponatremia Hyposmolality and/or hyponatremia Chronic hyponatremia Hyposmolality and/or hyponatremia Hypersomnia- Primary Hypersomnia, unspecified [facility] Diagnosis Persistent atrial fibrillation (HCC)- Primary Atrial fibrillation Recurrent major depression in partial remission (HCC) Major depressive disorder, recurrent episode, in partial or unspecified remission Closed wedge compression fracture of lumbar vertebra, unspecified lumbar vertebral level, sequela Osteopenia Disorder of bone and cartilage, unspecified Hyponatremia Hyposmolality and/or hyponatremia Need for vaccination Need for prophylactic vaccination and inoculation against unspecified single disease Medicare annual wellness visit, subsequent- Primary Routine general medical examination at a health care facility Persistent atrial fibrillation (HCC) Atrial fibrillation Malignant neoplasm of upper-inner quadrant of left breast in female, estrogen receptor positive (HCC) Recurrent major depression in partial remission (HCC) Major depressive disorder, recurrent episode, in partial or unspecified remission Palpitations Hyponatremia- Primary Hyposmolality and/or hyponatremia Chronic fatigue disorder Chronic fatigue syndrome Persistent atrial fibrillation (HCC) Atrial fibrillation Dizziness and giddiness Nail fungus Dermatophytosis of nail Need for vaccination Need for prophylactic vaccination and inoculation against unspecified single disease 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) Other disorders of neurohypophysis Fall, subsequent encounter- Primary Acute midline back pain, unspecified back location Dysuria Hyponatremia Hyposmolality and/or hyponatremia Hypokalemia Hypopotassemia documented in this encounter [facility] [place] note* Diagnosis Persistent atrial fibrillation (HCC)- Primary Atrial fibrillation Recurrent major depression in partial remission (HCC) Major depressive disorder, recurrent episode, in partial or unspecified remission Closed wedge compression fracture of lumbar vertebra, unspecified lumbar vertebral level, sequela Osteopenia Disorder of bone and cartilage, unspecified Hyponatremia Hyposmolality and/or hyponatremia Need for vaccination Need for prophylactic vaccination and inoculation against unspecified single disease Medicare annual wellness visit, subsequent- Primary Routine general medical examination at a health care facility Persistent atrial fibrillation (HCC) Atrial fibrillation Malignant neoplasm of upper-inner quadrant of left breast in female, estrogen receptor positive (HCC) Recurrent major depression in partial remission (HCC) Major depressive disorder, recurrent episode, in partial or unspecified remission Palpitations Hyponatremia- Primary Hyposmolality and/or hyponatremia Chronic fatigue disorder Chronic fatigue syndrome Persistent atrial fibrillation (HCC) Atrial fibrillation Dizziness and giddiness Nail fungus Dermatophytosis of nail Need for vaccination Need for prophylactic vaccination and inoculation against unspecified single disease 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) Other disorders of neurohypophysis Acute midline back pain, unspecified back location Fall, subsequent encounter documented in this encounter [facility] [place] note* Diagnosis Persistent atrial fibrillation (HCC)- Primary Atrial fibrillation Recurrent major depression in partial remission (HCC) Major depressive disorder, recurrent episode, in partial or unspecified remission Closed wedge compression fracture of lumbar vertebra, unspecified lumbar vertebral level, sequela Osteopenia Disorder of bone and cartilage, unspecified Hyponatremia Hyposmolality and/or hyponatremia Need for vaccination Need for prophylactic vaccination and inoculation against unspecified single disease Medicare annual wellness visit, subsequent- Primary Routine general medical examination at a health care facility Persistent atrial fibrillation (HCC) Atrial fibrillation Malignant neoplasm of upper-inner quadrant of left breast in female, estrogen receptor positive (HCC) Recurrent major depression in partial remission (HCC) Major depressive disorder, recurrent episode, in partial or unspecified remission Palpitations Hyponatremia- Primary Hyposmolality and/or hyponatremia Chronic fatigue disorder Chronic fatigue syndrome Persistent atrial fibrillation (HCC) Atrial fibrillation Dizziness and giddiness Nail fungus Dermatophytosis of nail Need for vaccination Need for prophylactic vaccination and inoculation against unspecified single disease 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) Other disorders of neurohypophysis Fall, subsequent encounter- Primary Acute midline back pain, unspecified back location [facility] Diagnosis Persistent atrial fibrillation (HCC)- Primary Atrial fibrillation Recurrent major depression in partial remission (HCC) Major depressive disorder, recurrent episode, in partial or unspecified remission Closed wedge compression fracture of lumbar vertebra, unspecified lumbar vertebral level, sequela Osteopenia Disorder of bone and cartilage, unspecified Hyponatremia Hyposmolality and/or hyponatremia Need for vaccination Need for prophylactic vaccination and inoculation against unspecified single disease Medicare annual wellness visit, subsequent- Primary Routine general medical examination at a health care facility Persistent atrial fibrillation (HCC) Atrial fibrillation Malignant neoplasm of upper-inner quadrant of left breast in female, estrogen receptor positive (HCC) Recurrent major depression in partial remission (HCC) Major depressive disorder, recurrent episode, in partial or unspecified remission Palpitations Hyponatremia- Primary Hyposmolality and/or hyponatremia Chronic fatigue disorder Chronic fatigue syndrome Persistent atrial fibrillation (HCC) Atrial fibrillation Dizziness and giddiness Nail fungus Dermatophytosis of nail Need for vaccination Need for prophylactic vaccination and inoculation against unspecified single disease 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) Other disorders of neurohypophysis Compression fracture of T12 vertebra with routine healing, subsequent encounter- Primary Compression fracture of body of thoracic vertebra (HCC) documented in this encounter [facility] [place] note* Diagnosis Persistent atrial fibrillation (HCC)- Primary Atrial fibrillation Recurrent major depression in partial remission (HCC) Major depressive disorder, recurrent episode, in partial or unspecified remission Closed wedge compression fracture of lumbar vertebra, unspecified lumbar vertebral level, sequela Osteopenia Disorder of bone and cartilage, unspecified Hyponatremia Hyposmolality and/or hyponatremia Need for vaccination Need for prophylactic vaccination and inoculation against unspecified single disease Medicare annual wellness visit, subsequent- Primary Routine general medical examination at a health care facility Persistent atrial fibrillation (HCC) Atrial fibrillation Malignant neoplasm of upper-inner quadrant of left breast in female, estrogen receptor positive (HCC) Recurrent major depression in partial remission (HCC) Major depressive disorder, recurrent episode, in partial or unspecified remission Palpitations Hyponatremia- Primary Hyposmolality and/or hyponatremia Chronic fatigue disorder Chronic fatigue syndrome Persistent atrial fibrillation (HCC) Atrial fibrillation Dizziness and giddiness Nail fungus Dermatophytosis of nail Need for vaccination Need for prophylactic vaccination and inoculation against unspecified single disease 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) Other disorders of neurohypophysis Ambulatory dysfunction- Primary Difficulty in walking Dizziness Dizziness and giddiness Frequent falls Personal history of fall Osteoporosis, unspecified osteoporosis type, unspecified pathological fracture presence Insomnia, unspecified type [facility] Diagnosis Persistent atrial fibrillation (HCC)- Primary Atrial fibrillation Recurrent major depression in partial remission Major depressive disorder, recurrent episode, in partial or unspecified remission Closed wedge compression fracture of lumbar vertebra, unspecified lumbar vertebral level, sequela Osteopenia Disorder of bone and cartilage, unspecified Hyponatremia Hyposmolality and/or hyponatremia Need for vaccination Need for prophylactic vaccination and inoculation against unspecified single disease Medicare annual wellness visit, subsequent- Primary Routine general medical examination at a health care facility Persistent atrial fibrillation (HCC) Atrial fibrillation Malignant neoplasm of upper-inner quadrant of left breast in female, estrogen receptor positive (HCC) Recurrent major depression in partial remission Major depressive disorder, recurrent episode, in partial or unspecified remission Palpitations Hyponatremia- Primary Hyposmolality and/or hyponatremia Chronic fatigue disorder Chronic fatigue syndrome Persistent atrial fibrillation (HCC) Atrial fibrillation Dizziness and giddiness Nail fungus Dermatophytosis of nail Need for vaccination Need for prophylactic vaccination and inoculation against unspecified single disease 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) Other disorders of neurohypophysis Osteoporosis, unspecified osteoporosis type, unspecified pathological fracture presence- Primary Insomnia, unspecified type Dizziness Dizziness and giddiness 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) Other disorders of neurohypophysis Protein-calorie malnutrition, unspecified severity (HCC) Anxiety and depression Dysthymic disorder Gastroesophageal reflux disease, unspecified whether esophagitis present Vitamin D deficiency Unspecified vitamin D deficiency Frail elderly Senility without mention of psychosis Mixed hyperlipidemia Essential (primary) hypertension Unspecified essential hypertension Adrenal insufficiency (HCC) Glucocorticoid deficiency [facility] November 21, 2023 11:25pm Note Date/Time November 21, 2023 11:[address] [place] [address] System Medical Records Department [address] [place] [address] H&P Exam - Hospitalist 11/21/23 2307 MR#: [id number] Acct: [id number] Name: ROSANA MAKILINA Rep #:[id number] : 1940 83 From: Michelle Hunt MD PCP: Dr. Rochelle Hackett MD Status:REG E R Location: ED HPI - General General Date of Admission: 11/21/23 Date of Service: 11/21/23 Chief Complaint: Intractable nausea/emesis. HPI Narrative The patient is an 83 y/o F w/ PMHx: Chronic diarrhea, PAF/Flutter, Chronic hyponatremia w/ chart reported history SIADH, Adrenal Insufficiency, Chronic migraines, Lichen sclerosis, GERD, Hx L Breast CA, Hx TIA who presents to the [facility] ED on 11/21/23 with history of onset intractable nausea and emesis eventually dry heaving only with inability to keep anything down with no associated abdominal cramping or pain and no diarrhea above her baseline with no recent upper respiratory symptoms but difficulty maintaining appropriate hydration prompting eventual ED evaluation. who is also present in the ED notes he has been well and has not been ill. They deny eating any abnormal foods recently and have been eating the same meals. Workup in the ED included T96.4, heart rate 81, BP 144/98, respiratory rate 18, 95% on room air, CBC with WBC 4.8, human 12.3, platelets 278 without marked shift, CMP with sodium 126, chloride 94, glucose 145 otherwise not marked appearing, urinalysis with no obvious evidence of UTI. In the ED patient ministered 1 L normal saline as wellas Reglan 10 mg IV x 1. [facility] Medical History (Updated 11/21/23 @ 23:[address] 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 Ovarian cyst Paroxysmal atrial fibrillation Paroxysmal atrial flutter SIADH (syndrome of inappropriate ADH production) TIA (transient ischemic attack) Home Medications Bilaterl knee high compression stockings (10-20) #2 ea 05/29/22 [Rx Last Taken Unknown] clobetasol 0.05 % topical cream 1 applic topical .COMPLEX #15 grams 08/05/22 [Rx Last Taken Unknown] calcium carbonate 600 mg calcium (1,500 mg) tablet 600 mg PO DAILY 10/14/22 [History Last Taken Unknown] cholecalciferol (vitamin D3) 10 mcg (400 unit) capsule 2,000 unit PO DAILY supplement 10/14/22 [History Last Taken Unknown] esomeprazole magnesium 40 mg capsule,delayed release See Rx Instructions .Route .COMPLEX #90 caps 12/18/22 [Rx Last Taken Unknown] magnesium oxide 400 mg (241.3 mg magnesium) tablet 400 mg PO DAILY #90 tabs 01/19/23 [Rx Last Taken Unknown] metoprolol succinate 25 mg tablet,extended release 24 hr 25 mg PO .COMPLEX #135 tabs 01/28/23 [Rx Last Taken Unknown] metoclopramide HCl 10 mg tablet (Reglan) 10 mg PO Q6H PRN nausea and vomiting 3 days #18 tabs 04/25/23 [Rx Last Taken Unknown] apixaban 5 mg tablet 5 mg PO BID #60 tabs 07/23/23 [Rx Last Taken Unknown] meclizine 25 mg tablet 25 mg PO TID PRN dizziness 3 days #9 tabs 08/29/23 [Rx Last Taken Unknown] fludrocortisone 0.1 mg tablet 0.05 mg (1/2 x 0.1 mg) .Route .COMPLEX #8 tabs 09/22/23 [Rx Last Taken Unknown] dofetilide 250 mcg capsule See Rx Instructions .Route .COMPLEX #180 caps 10/12/23 [Rx Last Taken Unknown] Allergy/AdvReac Type Severity Reaction Status Date / Time cantaloupe Allergy Severe Anaphylaxis Verified 11/21/23 19:35 grass pollen Allergy Severe Unknown Verified 11/21/23 19:35 Penicillins Allergy Severe Anaphylaxis Verified 11/21/23 19:35 Sulfa (Sulfonamide Allergy Unknown Other Verified 11/21/23 19:35 Antibiotics) mold Allergy Unknown Verified 11/21/23 19:35 pollen extracts Allergy Unknown Verified 11/21/23 19:35 erythromycin base AdvReac Severe Unknown Verified 11/21/23 19:35 lansoprazole [From Prevacid] AdvReac Severe Nausea/Vom/ Verified 11/21/23 19:35 Diarrhea adhesive tape AdvReac Intermediate Rash Verified 11/21/23 19:35 Family History Father Unknown family medical history Mother Uterine cancer Thyroid disorder Kidney disease Hypertension CHF (congestive heart failure) Arthritis Surgical History H/O breast biopsy H/O left mastectomy H/O lymph node biopsy History of cataract surgery History of colonoscopy (05/2019) History of dilation and curettage History of esophagogastroduodenoscopy (EGD) (05/2019) History of left heart catheterization (09/2012) History of radiofrequency ablation (RFA) procedure for cardiac arrhythmia (08/2013) History of removal of ovarian cyst Social History (Updated 11/21/23 @ 23:[address] Michelle Hunt MD) household members: spouse Smoking Status: Never smoker alcohol intake: current alcohol intake frequency: holidays/special occasions only substance use type: does not use caffeine: Yes what type of physical activity do you participate in: walking and yoga frequency: 3-4 times per week seatbelt use: always do you feel safe at home: Yes additional social history: -Kylee Patient and are both retired ROS ROS Narrative Admission Review of Systems: CONSTITUTIONAL: No weight loss, fever, chills, + weakness or fatigue. HEENT: Eyes: No visual loss, blurred vision, double vision or yellow sclerae. Ears, Nose, Throat: No hearing loss, sneezing, congestion, runny nose or sore throat. SKIN: No rash or itching, lesions, wounds. CARDIOVASCULAR: No chest pain, chest pressure or chest discomfort, palpitations,edema, orthopnea, syncopal events. RESPIRATORY: No shortness of breath, cough or sputum, wheezing, hemoptysis. GASTROINTESTINAL: + Anorexia, nausea, emesis. Chronic diarrhea but not any change from baseline. No abdominal pain, melena, BRBPR. GENITOURINARY: No dysuria, frequency, urgency or retention. NEUROLOGICAL: + Chronic debility, some chart reported history of disequilibrium. No headache, syncope, paralysis, ataxia, numbness or tingling in the extremities, focal weakness, change in bowel or bladder control, seizure. MUSCULOSKELETAL: + muscle, back pain, joint pain or stiffness. HEMATOLOGIC: No anemia. + Easy bleeding/bruising. LYMPHATICS: No enlarged nodes. No history of splenectomy. PSYCHIATRIC: No history of depression or anxiety. ENDOCRINOLOGIC: No reports of sweating, cold or heat intolerance. No polyuria orpolydipsia. ALLERGIES: + History of anaphylaxis. Vital Signs Vital Signs Vital Signs: 11/21/23 19:36 11/21/23 21:01 11/21/23 21:03 Temperature 96.4 F L Temperature Source Temporal Pulse Rate 81 78 Respiratory Rate 18 18 Blood Pressure 144/98 H 154/90 H Blood Pressure Mean 113 111 Pulse Ox 95 98 99 Oxygen Delivery Method Room Air Room Air Room Air 11/21/23 22:10 Temperature Temperature Source Pulse Rate 77 Respiratory Rate 16 Blood Pressure 143/76 H Blood Pressure Mean 98 Pulse Ox 97 Oxygen Delivery Method Room Air Weight Weight: 116 lb Body Mass Index (BMI) 18.1 Physical Exam Narrative Physical Examination: General: Awake, alert, oriented x 3 and cooperative, seated upright in the ED bed, fatigued, holding emesis bag but notes somewhat improved since initial ED arrival. Skin: Normal color, normal turgor, no icterus, no cyanosis. HEENT: AT/NC, EOMI, PERRLA, moderately dry MM, no carotid bruits or JVD noted. Lungs: CTA bilaterally, moderate effort, mild decrease BL bases, no rales, ronchi or wheezing. Heart: Regular rate and rhythm; no gallop, rub audible. Abdomen: Soft, NTTP, ND, mildly hyperactive BS, no appreciated HSM. Extremities: No cyanosis, clubbing, or edema. Neurological: Patient awake, alert, oriented as noted, cognitive function intact; pupils equally reactive to light and accommodation, cranial nerves II-XII grossly normal, moving all 4 extremities, no focal deficits, strength improving but remains moderately globally decreased secondary to acute presentation complaints. Psychiatric: Affect appears mildly flat, fatigued, no acute evidence of depressive or anxiety feelings. Results Lab / Micro Data 11/21/23 19:55 11/21/23 19:55 Labs: Laboratory Results - last 24 hr 11/21/23 19:55: WBC 4.8, RBC 4.19 L, Hgb 12.3, Hct 36.4 L, MCV 86.9, MCH 29.4, MCHC 33.8, RDW Std Deviation 44.6 H, RDW Coeff of Idania 14.0, Plt Count 278, MPV 8.9, Immature Gran % (Auto) 0.200, Neut % (Auto) 60.6, Lymph % (Auto) 32.0, [place]% (Auto) 6.2, Eos % (Auto) 0.4, Baso % (Auto) 0.6, Absolute Neuts (auto) 2.9, Absolute Lymphs (auto) 1.55, Nucleated RBC % 0, Sodium 126 L, Potassium 3.6, Chloride 94 L, Carbon Dioxide 23.0, Anion Gap 9, BUN 11, Creatinine 0.79, Estim Creat Clear Calc 45.81, Est GFR (MDRD) Af Amer 90, Est GFR (MDRD) Non-Af 74, BUN/Creatinine Ratio 13.9, Glucose 145 H, Calcium 8.5, Total Bilirubin 0.90, AST20, ALT 21, Alkaline Phosphatase 78, Total Protein 7.3, Albumin 3.3, Globulin 4.0, Albumin/Globulin Ratio 0.8 L 11/21/23 21:20: Urine Color Yellow, Urine Clarity Clear, Urine pH 8.0, Ur Specific Bryant 1.015, Urine Protein 15 H, Urine Glucose (UA) 100 H, Urine Ketones 15 H, Urine Occult Blood 10 H, Urine Nitrite Negative, Urine Bilirubin Negative, Urine Urobilinogen Normal, Ur Leukocyte Esterase Negative, Urine RBC 0SEEN, Urine WBC 0 SEEN, Ur Squamous Epith Cells 0 SEEN, Urine Bacteria 0 SEEN, Urine Mucus 0 SEEN Assessment & Plan Assessment/Plan (1) Acute hyponatremia: (2) Intractable nausea and vomiting: PLAN: Plan The patient is an 83 y/o F w/ PMHx: Chronic diarrhea, PAF/Flutter, Chronic hyponatremia w/ chart reported history SIADH, Adrenal Insufficiency, Chronic migraines, Lichen sclerosis, GERD, Hx L Breast CA, Hx TIA who presents to the [facility] ED on 11/21/23 with history of onset intractable nausea and emesis eventually dry heaving only with inability to keep anything down with no associated abdominal cramping or pain and no diarrhea above her baseline with no recent upper respiratory symptoms but difficulty maintaining appropriate hydration prompting eventual ED evaluation. #1. Intractable nausea and emesis, unclear exact etiology with acute on chronichyponatremia with history of SIADH, acute presentation with hypovolemic etiologygiven GI losses: Will admit to medical surgical floor, will continue judicious hydration, will obtain respiratory for viral panel be cautious, given no diarrhea will defer stool studies but if onset will obtain C. difficile and enteric to be cautious, suspect viral etiology, admission sodium to 126, chloride 94, baseline sodium primarily in the low 1 30-1 31 range but does vacillate lower, will continue home PPI, will allow clear liquids and advance diet as tolerated, maintain on fall precautions, PT/OT/case management consultedfor discharge planning. #2. Hyperglycemia: Mild, admission glucose 145, likely stress response given acute presentation #1, if repeat CMP in a.m. with elevated glucose low thresholdto obtain he will A1c and further investigate. #3. PAF/flutter: Patient status post RFA, we will continue patient home metoprolol, dofetilide as well as Eliquis regimen. #4. Lichen sclerosus: Patient outpatient chronically on clobetasol topical cream, need to clarify if she is currently using or if is in a period of remission. #5. 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 #6. History of TIA: We will continue patient on apixaban, hypertensive regimen as noted, further investigation of hyperglycemia as noted, not on statin therapy. #7. Chart reported history of chronic diarrhea: Noted in history also in recentoncology notes, patient denies any diarrhea that is worsened above baseline withcurrent presentation, will continue to closely monitor, loperamide if appropriate. #8. Chronic adrenal insufficiency: We will continue patient home fludrocortisone regimen. #9. GERD: We will continue patient on PPI. #10. DVT prophylaxis: The patient home apixaban regimen. #11. CODE status: Patient PASCUAL is her who is present and living will is currently in place. Discussed CODE status at length including difference between FULL code, DNR-CCA and DNR-CC status. Following discussions about the differences in these status, requested Full Code. Both patient and asked several questions regarding what happens to the body with codes and prognosis. Advanced Care Planning Face to Face Time: 16 minutes. Charges/Coding Visit Charges Inpatient E&M: 46548 Init Hosp L2 Procedures Hospitalists Procedures: 37028 Advncd Care Plan 30 Min 11/21/23 8192 <Electronically signed by Michelle Hunt MD> Cosigner Signature (if applicable): CC: Dr. Michelle Hunt MD; Dr. Rochelle Hackett MD~ Signed [facility] Work Phone: Hospital Discharge instructions Additional Instructions Thank you for trusting us with your care today! Please take Tylenol (2 pills, 650 mg), ibuprofen (2 pills, 400 mg) every 6 hours as needed for pain and fever control. Please take in plenty of oral fluids. I recommend Pedialyte, body armor or Gatorade. Please return to the emergency department if your symptoms change or worsen. Specifically if you lose consciousness, develop chest pain, if your symptoms change or worsen in any way. Please follow with your primary care physician for further outpatient evaluation and management.[facility] Work Phone: Hospital Discharge instructions Additional Instructions Please follow-up with your PCP and return for any worsening of your symptoms. Stay well-hydrated.[facility] Work Phone: Hospital Discharge instructions Additional Instructions Plenty of fluids and rest. Increase diet slowly as tolerated. Follow-up with your doctor as needed. Return if worse. Zofran as needed for nausea.[facility] Work Phone: Hospital Discharge instructions Additional Instructions Please follow-up with your PCP. Stay well-hydrated, return for any worsening of your symptoms.[facility] Work Phone: Reason for referral (narrative)* Diagnostic Procedure Only (Routine) - Authorized Specialty Diagnoses / Procedures Referred By Phong t Referred To Contact XR IMAGING Diagnoses Pain Procedures XR KNEE GENERAL 4V AP BOTH/PA BOTH/LAT/MERC RIGHT RADIOLOGIC EXAM KNEE COMPLETE 4/MORE VIEWS Jessy Pina PA-C [address] [place] [address] Xr Imaging Referral ID Status Reason Start Date Expiration Date Visits Requested Visits Authorized [id number] Authorized Auto-Generat ed Referral 04/17/2022 05/17/2023 1 1 [facility] for referral (narrative)* Diagnostic Procedure Only (Routine) - Closed Specialty Diagnoses / Procedures Referred By Contac t Referred To Contact XR IMAGING Diagnoses Pain Procedures XR KNEE GENERAL 4V AP BOTH/PA BOTH/LAT/MERC RIGHT RADIOLOGIC EXAM KNEE COMPLETE 4/MORE VIEWS Jessy Pina PA-C [address] [place] [address] Xr Imaging Referral ID Status Reason Start Date Expiration Date V isits Requested Visits Authorized [id number] Closed Auto-Generate d Referral 04/17/2022 05/17/2023 1 1 [facility] for referral (narrative)* Outpatient Procedure (Urgent) - Closed Specialty Diagnoses / Procedures Referred By Contac t Referred To Contact [facility] [place] Diagnoses Right leg swelling Procedures US LEG VEIN DVT UNL VAS LAB DUP-SCAN XTR VEINS UNILATERAL/LIMITED STUDY Justine Irizarry PA-C [address] [place] [address] [facility] [place] [address] [place] [id number] Referral ID Status Reason Start Date Expiration Date V isits Requested Visits Authorized [id number] Closed Auto-Generate d Referral 07/11/2022 07/11/2023 1 1 [facility] for referral (narrative)* Outpatient Procedure (Routine) - Authorized Specialty Diagnoses / Procedures Referred By Contac t Referred To Contact [facility] [place] Diagnoses Onychomycosis Diminished pulses in lower extremity Procedures PVR ANK PRESS NANCY VAS LAB NON-INVAS PHYSIOLOGIC STD EXTREMITY ART 2 LEVEL Sol Harvey [address] [place] [address] [facility] [place] [address] [place] [address] Referral ID Status Reason Start Date Expiration Date Visits Requested Visits Authorized [id number] Authorized Auto-Generat ed Referral 01/14/2023 01/14/2024 1 1 [facility] for referral (narrative)* Diagnostic Procedure Only (Routine) - Closed Specialty Diagnoses / Procedures Referred By Contac t Referred To Contact XR IMAGING Diagnoses Diarrhea, unspecified type Procedures XR ABDOMEN 1V SUPINE RADIOLOGIC EXAM ABDOMEN 1 VIEW Sandra Leary APRN.FLIGHT FOLLOWER [address] [place] [address] Xr Imaging Referral ID Status Reason Start Date Expiration Date V isits Requested Visits Authorized [id number] Closed Auto-Generate d Referral 04/16/2023 05/15/2024 1 1 [facility] for referral (narrative)* Diagnostic Procedure Only (Routine) - Pending Review Specialty Diagnoses / Procedures Referred By Contac t Referred To Contact XR IMAGING Diagnoses Right knee pain, unspecified chronicity Procedures XR KNEE GENERAL 4V AP BOTH/PA BOTH/LAT/MERC RIGHT RADIOLOGIC EXAM KNEE COMPLETE 4/MORE VIEWS Jatinder Vick MD [address] [place] [address] [place] [address] Referral ID Status Reason Start Date Expiration Date Visits Requested Visits Authorized [id number] Pending Review Auto-Generat ed Referral 3 08/27/2024 1 1 [facility] for referral (narrative)* Outpatient Procedure (Routine) - Authorized Specialty Diagnoses / Procedures Referred By Contac t Referred To Contact [facility] Diagnoses TIA (transient ischemic attack) Aphasia Ocular migraine Procedures US CAROTID ARTERIES NANCY VAS LAB DUPLEX SCAN EXTRACRANIAL ART COMPL BI STUDY Irish [place] APRN.FLIGHT FOLLOWER [address] [place] [address] [facility] [place] [address] [place] [address] [place] [address] Referral ID Status Reason Start Date Expiration Date Visits Requested Visits Authorized [id number] Authorized Auto-Generat ed Referral 11/02/2023 11/01/2024 1 1 * MRI/CT (Routine) - Authorized Specialty Diagnoses / Procedures Referred By Contac t Referred To Contact CT IMAGING Diagnoses TIA (transient ischemic attack) Aphasia Ocular migraine Procedures CT BRAIN WO IVCON CT HEAD/BRAIN W/O CONTRAST MATERIAL Irish [place] APRN.CNP [address] [place] [address] Ct Imaging [facility] Referral ID Status Reason Start Date Expiration Date Visits Requested Visits Authorized [id number] Authorized Auto-Generat ed Referral 11/02/2023 12/01/2024 1 1 [facility] for referral (narrative)* Diagnostic Procedure Only (Routine) - Closed Specialty Diagnoses / Procedures Referred By Contac t Referred To Contact XR IMAGING Diagnoses Diarrhea, unspecified type Procedures XR ABDOMEN 1V SUPINE RADIOLOGIC EXAM ABDOMEN 1 VIEW Sandra Leary APRN.CNP [facility] [place] [address] Xr Imaging [facility] Referral ID Status Reason Start Date Expiration Date V isits Requested Visits Authorized [id number] Closed Auto-Generate d Referral 04/16/2023 05/15/2024 1 1 [facility] for referral (narrative)No reason for referral information [facility] Work Phone: Reason for visit Narrative* Diagnostic Procedure Only (Routine) - Closed Specialty Diagnoses / Procedures Referred By Contac t Referred To Contact XR IMAGING Diagnoses Pain Procedures XR KNEE GENERAL 4V AP BOTH/PA BOTH/LAT/MERC RIGHT RADIOLOGIC EXAM KNEE COMPLETE 4/MORE VIEWS Jessy Pina PA-C [address] [place] [address] Xr Imaging Referral ID Status Reason Start Date Expiration Date V isits Requested Visits Authorized [id number] Closed Auto-Generate d Referral 04/17/2022 05/17/2023 1 1 [facility] for visit Narrative* Diagnostic Procedure Only (Routine) - Closed Specialty Diagnoses / Procedures Referred By Contac t Referred To Contact XR IMAGING Diagnoses Diarrhea, unspecified type Procedures XR ABDOMEN 1V SUPINE RADIOLOGIC EXAM ABDOMEN 1 VIEW Sandra Leary SERVICES DELIVERY DRIVER.FLIGHT FOLLOWER [address] [place] [address] [place] [address] Referral ID Status Reason Start Date Expiration Date V isits Requested Visits Authorized [id number] Closed Auto-Generate d Referral 04/16/2023 05/15/2024 1 1 [facility] for visit Narrative* Diagnostic Procedure Only (Routine) - Closed Specialty Diagnoses / Procedures Referred By Contac t Referred To Contact XR IMAGING Diagnoses Acute midline back pain, unspecified back location Fall, subsequent encounter Procedures XR LUMBAR GENERAL 3V AP/LAT/L5-S1 RADEX SPINE LUMBOSACRAL 2/3 VIEWS Al Nichole APRN.FLIGHT FOLLOWER [address] [place] [address] Phone: tel: fax: [place] [address] Referral ID Status Reason Start Date Expiration Date V isits Requested Visits Authorized [id number] Closed Auto-Generate d Referral 11/02/2024 12/02/2025 1 1 [facility] Chief Complaint and Reason for Visit Chief Complaint 6MO LABS PROLIA ONC/HEM RIGHT BREAST LUMP cp 4 M FU E-ORDER Reason for Visit 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 Osteopenia 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 Anemia 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 Osteopenia 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 Vaginal dryness Cerebrovascular disease Mild cognitive impairment SIADH (syndrome of inappropriate ADH production) Chief Complaint 4 M FU E-ORDER RT SHOULDER/RX HERE 9 M FU/MOVED FROM [place] E-ORDER Reason for Visit Cerebrovascular dise ase Mild cognitive impairment SIADH (syndrome of inappropriate ADH production) Chest pain, unspecified Fatigue Hyponatremia with decreased serum osmolality Nonrheumatic mitral (valve) prolapse Paroxysmal atrial fibrillation Chief Complaint 9 M FU/MOVED FROM O E-ORDER RT SHOULDER/RX HERE 6 MO - NO LABS - PROLIA ONC/HEM CP, A-FIB *YASIR* Reason for Visit Chest pain, unspecif ied Fatigue Hyponatremia with decreased serum osmolality Nonrheumatic mitral (valve) prolapse Paroxysmal atrial fibrillation 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 Osteopenia 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 Anemia 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 Osteopenia 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 Vaginal dryness Chief Complaint 9 M FU/MOVED FROM O E-ORDER 6 MO - NO LABS - PROLIA ONC/HEM CP, A-FIB *YASIR* SCREENING RT SHOULDER/RX HERE 2 ORDERING KAPIL NASH Reason for Visit Chest pain, unspecif ied Fatigue Hyponatremia with decreased serum osmolality Nonrheumatic mitral (valve) prolapse Paroxysmal atrial fibrillation 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 Osteopenia 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 Anemia 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 Osteopenia 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 Vaginal dryness Chief Complaint 9 M FU/MOVED FROM O E-ORDER 6 MO - NO LABS - PROLIA ONC/HEM CP, A-FIB *YASIR* SCREENING 2 ORDERING KAPIL NASH 4 M FU EORDER RT SHOULDER/RX HERE Reason for Visit Chest pain, unspecif ied Fatigue Hyponatremia with decreased serum osmolality Nonrheumatic mitral (valve) prolapse Paroxysmal atrial fibrillation 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 Osteopenia 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 Anemia 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 Osteopenia 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 Vaginal dryness Anemia Cerebrovascular disease Edema of both legs Mild cognitive impairment SIADH (syndrome of inappropriate ADH production) Chief Complaint 9 M FU/MOVED FROM O E-ORDER 6 MO - NO LABS - PROLIA ONC/HEM CP, A-FIB *YASIR* SCREENING 2 ORDERING KAPIL NASH 4 M FU EORDER COVID-19 RT SHOULDER/RX HERE Reason for Visit Chest pain, unspecif ied Fatigue Hyponatremia with decreased serum osmolality Nonrheumatic mitral (valve) prolapse Paroxysmal atrial fibrillation 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 Osteopenia 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 Vaginal dryness Mild cognitive impairment SIADH (syndrome of inappropriate ADH production) Chief Complaint 6 M FU MIXED INCONTINENCE / RX HERE 6 M FU near syncope Reason for Visit Hyponatremia with de creased serum osmolality Nonrheumatic mitral (valve) prolapse Paroxysmal atrial fibrillation Polyneuropathy Mild cognitive impairment SIADH (syndrome of inappropriate ADH production) Chief Complaint 6 M FU 6 M FU near syncope 6 MO - NO LABS - PROLIA ONC/HEM E ORDER MIXED INCONTINENCE / RX HERE Reason for Visit Hyponatremia with de creased serum osmolality Nonrheumatic mitral (valve) prolapse Paroxysmal atrial fibrillation Polyneuropathy Mild cognitive impairment 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 Osteopenia 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 Anemia 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 Osteopenia 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 Vaginal dryness Chief Complaint 6 M FU 6 M FU near syncope 6 MO - NO LABS - PROLIA ONC/HEM E ORDER MIXED INCONTINENCE / RX HERE Needs ekg: on Tikosyn, irreg HR n/v Reason for Visit Hyponatremia with de creased serum osmolality Nonrheumatic mitral (valve) prolapse Paroxysmal atrial fibrillation Polyneuropathy Mild cognitive impairment 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 Osteopenia 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 Anemia 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 Osteopenia 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 Vaginal dryness Hyponatremia with decreased serum osmolality Nonrheumatic mitral (valve) prolapse Paroxysmal atrial fibrillation Chief Complaint 6 M FU near syncope 6 MO - NO LABS - PROLIA ONC/HEM E ORDER Needs ekg: on Tikosyn, irreg HR n/v MIXED INCONTINENCE / RX HERE BLE NUMBNESS & NEUROPATHY, ABN GAIT & MOBILITY BLE NUMBNESS & NEUROPATHY, ABN GAIT & MOBILITY SCREENING Reason for Visit Polyneuropathy Mild cognitive impairment 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 Osteopenia 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 Anemia 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 Osteopenia 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 Vaginal dryness Hyponatremia with decreased serum osmolality Nonrheumatic mitral (valve) prolapse Paroxysmal atrial fibrillation Chief Complaint 6 M FU near syncope 6 MO - NO LABS - PROLIA ONC/HEM E ORDER Needs ekg: on Tikosyn, irreg HR n/v MIXED INCONTINENCE / RX HERE BLE NUMBNESS & NEUROPATHY, ABN GAIT & MOBILITY BLE NUMBNESS & NEUROPATHY, ABN GAIT & MOBILITY SCREENING 6 M FU EORDER Reason for Visit Polyneuropathy Mild cognitive impairment 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 Osteopenia 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 Anemia 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 Osteopenia 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 Vaginal dryness Hyponatremia with decreased serum osmolality Nonrheumatic mitral (valve) prolapse Paroxysmal atrial fibrillation Chest pain, unspecified Fatigue Hyponatremia with decreased serum osmolality Nonrheumatic mitral (valve) prolapse Paroxysmal atrial fibrillation Chief Complaint Needs ekg: on Tikosy n, irreg HR n/v MIXED INCONTINENCE / RX HERE BLE NUMBNESS & NEUROPATHY, ABN GAIT & MOBILITY BLE NUMBNESS & NEUROPATHY, ABN GAIT & MOBILITY SCREENING 6 M FU EORDER NOSEBLEED Chest pain, unspecified Chest pain, unspecified Amb Documentation Reason for Visit Hyponatremia with de creased serum osmolality Nonrheumatic mitral (valve) prolapse Paroxysmal atrial fibrillation Chest pain, unspecified Fatigue Hyponatremia with decreased serum osmolality Nonrheumatic mitral (valve) prolapse Paroxysmal atrial fibrillation Chief Complaint 6 M FU EORDER NOSEBLEED Chest pain, unspecified Chest pain, unspecified Amb Documentation NV 4 M FU E ORDER Reason for Visit Chest pain, unspecif ied Fatigue Hyponatremia with decreased serum osmolality Nonrheumatic mitral (valve) prolapse Paroxysmal atrial fibrillation Abnormality of gait and mobility Fatigue Orthostatic hypotension Polyneuropathy Sarcopenia Mild cognitive impairment SIADH (syndrome of inappropriate ADH production) Chief Complaint 6 M FU EORDER NOSEBLEED Chest pain, unspecified Chest pain, unspecified Amb Documentation NV 4 M FU E ORDER ONC/HEM 6 MO - LABS - PROLIA RIGHT BREAST PAIN SARCOPENIA. 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 Osteopenia 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 Fatigue Acute hyponatremia Intractable nausea and vomiting Fatigue Fatigue Hyponatremia with decreased serum osmolality Nonrheumatic mitral (valve) prolapse Paroxysmal atrial fibrillation Chief Complaint MIXED INCONTINENCE / RX HERE BLE NUMBNESS & NEUROPATHY, ABN GAIT & MOBILITY BLE NUMBNESS & NEUROPATHY, ABN GAIT & MOBILITY SCREENING 6 M FU EORDER NOSEBLEED Chest pain, unspecified Chest pain, unspecified Amb Documentation NV Reason for Visit Chest pain, unspecif ied Fatigue Hyponatremia with decreased serum osmolality Nonrheumatic mitral (valve) prolapse Paroxysmal atrial fibrillation Chief Complaint Admit Date 1 y fu September 09, 2024 11:15am labs w/IV start September 20, 2024 1: 30pm HYPERSOMNIA October 14, 2024 8 :15pm Fall, flu symptoms, weakness October 302024 7:57pm NEEDS ORDER December 20, 2024 11:5 9am GAIT DEFICIT, DIZZINESS. 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 September 20, 2024 1:30pm Osteopenia 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 September 20, 2024 1:30pm Vaginal dryness September 20, 2024 1: 30pm Educational circumstance September 20 1:30pm Family History Relationship Condition Age at Onset Recorded Date/T lashonda father Unknown family medical history Unknown mother Malignant neoplasm of uterus Unknown Disorder of thyroid Unknown Kidney disorder Unknown Hypertension Unknown Congestive heart failure Unknown Arthritis Unknown Advance Directives Advance Directive Response Recorded Date/ Time Advance Directives on File No Octob er 2018 12:06pm Advance Directives Yes July 07, 2019 12:06pm Living Will Yes October 24 10:54pm Power of Fruit Or Nut Farmworker Yes October 24, 2021 10:54pm Documents on File Type Date Recorded Patient Accounts Receivable Bookkeeper Expl anation Advance Directive(s) 05/29/2020 7:38 AM Advance Directive Response Recorded Date/ Time Advance Directives Yes July 07, 2019 12:06pm Living Will Yes October 24 10:54pm Power of Fruit Or Nut Farmworker Yes October 24, 2021 10:54pm Advance Directive Response Recorded Date/ Time Advance Directives on File No Octob er 2018 12:06pm Advance Directives Yes April 09 11:51am Living Will Yes April 09, 2022 11:51am Power of Fruit Or Nut Farmworker Yes April 09 11:51am Documents on File Type Date Recorded Patient Accounts Receivable Bookkeeper Expl anation Advance Directive(s) 05/29/2020 7:38 AM Advance Directive Response Recorded Date/ Time Name of Medical Power of Fruit Or Nut Farmworker Kylee Maki August 17, 2022 12:19am Advance Directives Yes April 09 10:51am Living Will Yes August 17 12:19am Power of Fruit Or Nut Farmworker Yes August 17, 2022 12:19am Advance Directive Response Recorded Date/ Time Advance Directives on File No Octob er 2018 11:06am Name of Medical Power of Fruit Or Nut Farmworker Kylee Figtrevin August 17, 2022 12:19am Advance Directives Yes April 09 10:51am Living Will Yes August 17 12:19am Power of Fruit Or Nut Farmworker Yes August 17, 2022 12:19am Advance Directive Response Recorded Date/ Time Name of Medical Power of Fruit Or Nut Farmworker April 08, 2023 2:22pm Advance Directives Yes April 09 11:51am Living Will Yes April 08, 2023 2:22pm Power of Fruit Or Nut Farmworker Yes April 08 2:22pm Advance Directive Response Recorded Date/ Time Advance Directives on File No Octob er 2018 12:06pm Name of Medical Power of Fruit Or Nut Farmworker April 08, 2023 2:22pm Advance Directives Yes April 09 11:51am Living Will Yes April 08, 2023 2:22pm Power of Fruit Or Nut Farmworker Yes April 08 2:22pm Advance Directive Response Recorded Date/ Time Advance Directives on File No Octob er 2018 12:06pm Name of Medical Power of Fruit Or Nut Farmworker April 08, 2023 2:22pm Name of Medical Power of Fruit Or Nut Farmworker Kylee Figtrevin April 25, 2023 4:41pm Advance Directives Yes April 09 11:51am Living Will Yes April 25 4:41pm Power of Fruit Or Nut Farmworker Yes April 25, 023 4:41pm Advance Directive Response Recorded Date/ Time Advance Directives on File No Octob er 2018 11:06am Name of Medical Power of Fruit Or Nut Farmworker April 08, 2023 1:22pm Name of Medical Power of Fruit Or Nut Farmworker Kylee Figtrevin April 25, 2023 3:41pm Advance Directives Yes April 09 10:51am Living Will Yes April 25 3:41pm Power of Fruit Or Nut Farmworker Yes April 25, 023 3:41pm Advance Directive Response Recorded Date/ Time Name of Medical Power of Fruit Or Nut Farmworker roxann maki July 23, 2023 9:22am Advance Directives Yes April 09 10:51am Living Will Yes July 23 9:22am Power of Fruit Or Nut Farmworker Yes July 23, 2023 9:22am Name of Medical Power of Fruit Or Nut Farmworker Kylee Figtrevin April 25, 2023 3:41pm Advance Directive Response Recorded Date/ Time Name of Medical Power of Fruit Or Nut Farmworker roxann ramírez figtrevin July 23, 2023 9:22am Advance Directives Yes September 22, 2023 9:08am Living Will No September 22 9:08am Power of Fruit Or Nut Farmworker No September 22 024 9:08am Advance Directive Response Recorded Date/ Time Advance Directives on File No Octob er 2018 11:06am Name of Medical Power of Fruit Or Nut Farmworker roxann ramírez figtrevin July 23, 2023 9:22am Advance Directives Yes September 22, 2023 9:08am Living Will No September 22 9:08am Power of Fruit Or Nut Farmworker No September 22 9:08am Advance Directive Response Recorded Date/ Time Advance Directives on File No Octob er 2018 11:06am Advance Directives Yes September 22, 2023 9:08am Living Will No November 21, 2023 9:07pm Power of Fruit Or Nut Farmworker No November 20 9:07pm Advance Directive Response Recorded Date/ Time Advance Directives on File No Octob er 2018 12:06pm Name of Medical Power of Fruit Or Nut Farmworker Kylee Figge November 22, 2023 2:20am Advance Directives Yes September 22, 2023 10:08am Living Will Yes November 22, 2023 2:20am Power of Fruit Or Nut Farmworker Yes November 21 2:20am Advance Directive Response Recorded Date/ Time Advance Directives on File No Octob er 2018 12:06pm Name of Medical Power of Fruit Or Nut Farmworker Kylee Figge November 22, 2023 2:20am Name of Medical Power of Fruit Or Nut Farmworker KLYEE FIGGE December 08, 2023 8:33pm Advance Directives Yes September 22, 2023 10:08am Living Will Yes December 08, 2023 8:33pm Power of Fruit Or Nut Farmworker Yes December 07 8:33pm Advance Directive Response Recorded Date/ Time Advance Directives on File No Octob er 2018 12:06pm Name of Medical Power of Fruit Or Nut Farmworker Kylee Figge November 22, 2023 2:20am Name of Medical Power of Fruit Or Nut Farmworker KYLEE FIGGE December 08, 2023 8:33pm Name of Medical Power of Fruit Or Nut Farmworker Kylee Maki January 23, 2024 2:31pm Advance Directives Yes September 22, 2023 10:08am Living Will Yes January 23, 2024 2 :31pm Power of Fruit Or Nut Farmworker Yes January 23, 2024 2:31pm Advance Directive Response Recorded Date/ Time Name of Medical Power of Fruit Or Nut Farmworker roxann maki July 23, 2023 9:22am Advance Directives Yes April 09 10:51am Living Will No August 29 023 12:17pm Power of Fruit Or Nut Farmworker No August 29, 2023 12:17pm Date Activated Date Inactivated Comments 08/19/2013 4:37 PM 08/21/2013 4:18 PM Advance Directive Response Recorded Date/ Time Living Will Yes April 25 4:41pm Do you have a Healthcare Power of Fruit Or Nut Farmworker? Yes April 25, 2023 4:41pm Advance Directives on File No Junob 2018 12:06pm Living Will Yes October 020 5:40pm Do you have a Healthcare Power of Fruit Or Nut Farmworker? Yes November 12, 2019 5:40pm Living Will Yes October 30, 025 9:07pm Do you have a Healthcare Power of Fruit Or Nut Farmworker? Yes October 30, 2024 9:07pm Name of Medical Power of Fruit Or Nut Farmworker October 30, 2024 9:07pm Advance Directives Yes September 22, 2023 10:08am Health Concerns Infection Onset Date Last Indicated [...] unspecified type Procedures CONSULT TO UROLOGY OFFICE/OUTPATIENT [facility] 60-74 MINUTES Rochelle Hackett MD [address] [phone] Referral ID Status Reason Start Date Expiration Date Visits Requested Visits Authorized [id number] Authorized PCP Requested Referral 11/14/2022 11/14/2023 1 1 Specialty Diagnoses / Procedures Referred By Contac t Referred To Contact Orthopedics Diagnoses Chronic pain of right knee Procedures CONSULT TO ORTHOPAEDICS OFFICE/OUTPATIENT [facility] 60-74 MINUTES Al Nichole, SERVICES DELIVERY DRIVER.FLIGHT FOLLOWER [address] [phone] Referral ID Status Reason Start Date Expiration Date Visits Requested Visits Authorized [id number] Authorized PCP Requested Referral 07/08/2024 1 1 Specialty Diagnoses / Procedures Referred By Contac t Referred To Contact CT IMAGING Diagnoses TIA (transient ischemic attack) Aphasia Ocular migraine Procedures CT BRAIN WO IVCON CT HEAD/BRAIN W/O CONTRAST MATERIAL Irish [place], SERVICES DELIVERY DRIVER.FLIGHT FOLLOWER [phone] [place] [address] Referral ID Status Reason Start Date Expiration Date V isits Requested Visits Authorized [id number] Closed Auto-Generate d Referral 11/02/2023 12/01/2024 1 1 Specialty Diagnoses / Procedures Referred By Contac t Referred To Contact Diagnoses Urinary incontinence, unspecified type Procedures CONSULT TO FEMALE UROLOGY/URO GYNECOLOGY OFFICE/OUTPATIENT [facility] 60 MINUTES Sara Rangel, SERVICES DELIVERY DRIVER.BLUEPRINTING AND PHOTOCOPY SUPERVISOR [address] [phone] Referral ID Status Reason Start Date Expiration Date Visits Requested Visits Authorized [id number] Authorized PCP Requested Referral 12/15/2023 12/14/2024 1 1 Specialty Diagnoses / Procedures Referred By Contac t Referred To Contact Gerontology Diagnoses Mild cognitive impairment Procedures CONSULT TO GERIATRICS OFFICE/OUTPATIENT [facility] MDM 60 MINUTES Al Nichole APRN.CNP [address] [place] [address] Referral ID Status Reason Start Date Expiration Date Visits Requested Visits Authorized [id number] Authorized PCP Requested Referral 04/13/2024 04/12/2025 1 1 Specialty Diagnoses / Procedures Referred By Contac t Referred To Contact Diagnoses Sleep apnea, unspecified type Procedures CONSULT TO SLEEP MEDICINE - ADULT OFFICE/OUTPATIENT [facility] MDM 60 MINUTES Rochelle Hackett MD [address] [place] [address] Referral ID Status Reason Start Date Expiration Date Visits Requested Visits Authorized [id number] Authorized PCP Requested Referral 07/21/2024 07/21/2025 1 1 Summary Purpose Additional Source Comments Goals (unrecognized section and content) Goals may be documented in a n alternate sectionGoals may be documented in an alternate sectionGoals may be documented in an alternate sectionGoals may be documented in an alternate sectionGoals may be documented in an alternate sectionGoals may be documented in an alternate sectionGoals may be documented in an alternate sectionGoals may be documented in an alternate sectionGoals may be documented in an alternate sectionGoals may be documented in an alternate sectionGoals may be documented in an alternate sectionGoals may be documented in an alternate sectionGoals may be documented in an alternate sectionGoals may be documented in an alternate sectionGoals may be documented in an alternate sectionGoals may be documented in an alternate sectionGoals may be documented in an alternate sectionGoals may be documented in an alternate sectionGoals may be documented in an alternate sectionGoals may be documented in an alternate sectionGoals may be documented in an alternate sectionGoals may be documented in an alternate sectionGoals may be documented in an alternate sectionGoals may be documented in an alternate sectionGoals may be documented in an alternate sectionGoals may be documented in an alternate section Source Comments (unrecognize d section and content) In the event this informatio n is protected by the Federal Confidentiality of Alcohol and Drug Abuse Patient Records regulations: The Federal rules restrict any use of the information to criminally investigate or prosecute any alcohol or drug abuse patient.[facility] the event this information is protected by the Federal Confidentiality of Alcohol and Drug Abuse Patient Records regulations: The Federal rules restrict any use of the information to criminally investigate or prosecute any alcohol or drug abuse patient.[facility]In the event this information is protected by the Federal Confidentiality of Alcohol and Drug Abuse Patient Records regulations: The Federal rules restrict any use of the information to criminally investigate or prosecute any alcohol or drug abuse patient.[facility]In the event this information is protected by the Federal Confidentiality of Alcohol and Drug Abuse Patient Records regulations: The Federal rules restrict any use of the information to criminally investigate or prosecute any alcohol or drug abuse patient.[facility] HospitalIn the event this information is protected by the Federal Confidentiality of Alcohol and Drug Abuse Patient Records regulations: The Federal rules restrict any use of the information to criminally investigate or prosecute any alcohol or drug abuse patient.[facility] HospitalIn the event this information is protected by the Federal Confidentiality of Alcohol and Drug Abuse Patient Records regulations: The Federal rules restrict any use of the information to criminally investigate or prosecute any alcohol or drug abuse patient.[facility] HospitalIn the event this information is protected by the Federal Confidentiality of Alcohol and Drug Abuse Patient Records regulations: The Federal rules restrict any use of the information to criminally investigate or prosecute any alcohol or drug abuse patient.[facility] HospitalIn the event this information is protected by the Federal Confidentiality of Alcohol and Drug Abuse Patient Records regulations: The Federal rules restrict any use of the information to criminally investigate or prosecute any alcohol or drug abuse patient.[facility] HospitalIn the event this information is protected by the Federal Confidentiality of Alcohol and Drug Abuse Patient Records regulations: The Federal rules restrict any use of the information to criminally investigate or prosecute any alcohol or drug abuse patient.[facility] HospitalIn the event this information is protected by the Federal Confidentiality of Alcohol and Drug Abuse Patient Records regulations: The Federal rules restrict any use of the information to criminally investigate or prosecute any alcohol or drug abuse patient.[facility] HospitalIn the event this information is protected by the Federal Confidentiality of Alcohol and Drug Abuse Patient Records regulations: The Federal rules restrict any use of the information to criminally investigate or prosecute any alcohol or drug abuse patient.[facility] HospitalIn the event this information is protected by the Federal Confidentiality of Alcohol and Drug Abuse Patient Records regulations: The Federal rules restrict any use of the information to criminally investigate or prosecute any alcohol or drug abuse patient.[facility] HospitalIn the event this information is protected by the Federal Confidentiality of Alcohol and Drug Abuse Patient Records regulations: The Federal rules restrict any use of the information to criminally investigate or prosecute any alcohol or drug abuse patient.[facility] HospitalIn the event this information is protected by the Federal Confidentiality of Alcohol and Drug Abuse Patient Records regulations: The Federal rules restrict any use of the information to criminally investigate or prosecute any alcohol or drug abuse patient.[facility] HospitalIn the event this information is protected by the Federal Confidentiality of Alcohol and Drug Abuse Patient Records regulations: The Federal rules restrict any use of the information to criminally investigate or prosecute any alcohol or drug abuse patient.[facility] HospitalIn the event this information is protected by the Federal Confidentiality of Alcohol and Drug Abuse Patient Records regulations: The Federal rules restrict any use of the information to criminally investigate or prosecute any alcohol or drug abuse patient.[facility] HospitalIn the event this information is protected by the Federal Confidentiality of Alcohol and Drug Abuse Patient Records regulations: The Federal rules restrict any use of the information to criminally investigate or prosecute any alcohol or drug abuse patient.[facility] HospitalIn the event this information is protected by the Federal Confidentiality of Alcohol and Drug Abuse Patient Records regulations: The Federal rules restrict any use of the information to criminally investigate or prosecute any alcohol or drug abuse patient.[facility] HospitalIn the event this information is protected by the Federal Confidentiality of Alcohol and Drug Abuse Patient Records regulations: The Federal rules restrict any use of the information to criminally investigate or prosecute any alcohol or drug abuse patient.[facility] HospitalIn the event this information is protected by the Federal Confidentiality of Alcohol and Drug Abuse Patient Records regulations: The Federal rules restrict any use of the information to criminally investigate or prosecute any alcohol or drug abuse patient.[facility] HospitalIn the event this information is protected by the Federal Confidentiality of Alcohol and Drug Abuse Patient Records regulations: The Federal rules restrict any use of the information to criminally investigate or prosecute any alcohol or drug abuse patient.[facility] HospitalIn the event this information is protected by the Federal Confidentiality of Alcohol and Drug Abuse Patient Records regulations: The Federal rules restrict any use of the information to criminally investigate or prosecute any alcohol or drug abuse patient.[facility] HospitalIn the event this information is protected by the Federal Confidentiality of Alcohol and Drug Abuse Patient Records regulations: The Federal rules restrict any use of the information to criminally investigate or prosecute any alcohol or drug abuse patient.[facility] HospitalIn the event this information is protected by the Federal Confidentiality of Alcohol and Drug Abuse Patient Records regulations: The Federal rules restrict any use of the information to criminally investigate or prosecute any alcohol or drug abuse patient.[facility] HospitalIn the event this information is protected by the Federal Confidentiality of Alcohol and Drug Abuse Patient Records regulations: The Federal rules restrict any use of the information to criminally investigate or prosecute any alcohol or drug abuse patient.[facility] HospitalIn the event this information is protected by the Federal Confidentiality of Alcohol and Drug Abuse Patient Records regulations: The Federal rules restrict any use of the information to criminally investigate or prosecute any alcohol or drug abuse patient.[facility] HospitalIn the event this information is protected by the Federal Confidentiality of Alcohol and Drug Abuse Patient Records regulations: The Federal rules restrict any use of the information to criminally investigate or prosecute any alcohol or drug abuse patient.[facility] HospitalIn the event this information is protected by the Federal Confidentiality of Alcohol and Drug Abuse Patient Records regulations: The Federal rules restrict any use of the information to criminally investigate or prosecute any alcohol or drug abuse patient.[facility] HospitalIn the event this information is protected by the Federal Confidentiality of Alcohol and Drug Abuse Patient Records regulations: The Federal rules restrict any use of the information to criminally investigate or prosecute any alcohol or drug abuse patient.[facility] HospitalIn the event this information is protected by the Federal Confidentiality of Alcohol and Drug Abuse Patient Records regulations: The Federal rules restrict any use of the information to criminally investigate or prosecute any alcohol or drug abuse patient.[facility] HospitalIn the event this information is protected by the Federal Confidentiality of Alcohol and Drug Abuse Patient Records regulations: The Federal rules restrict any use of the information to criminally investigate or prosecute any alcohol or drug abuse patient.[facility] HospitalIn the event this information is protected by the Federal Confidentiality of Alcohol and Drug Abuse Patient Records regulations: The Federal rules restrict any use of the information to criminally investigate or prosecute any alcohol or drug abuse patient.[facility] HospitalIn the event this information is protected by the Federal Confidentiality of Alcohol and Drug Abuse Patient Records regulations: The Federal rules restrict any use of the information to criminally investigate or prosecute any alcohol or drug abuse patient.[facility] HospitalIn the event this information is protected by the Federal Confidentiality of Alcohol and Drug Abuse Patient Records regulations: The Federal rules restrict any use of the information to criminally investigate or prosecute any alcohol or drug abuse patient.[facility] HospitalIn the event this information is protected by the Federal Confidentiality of Alcohol and Drug Abuse Patient Records regulations: The Federal rules restrict any use of the information to criminally investigate or prosecute any alcohol or drug abuse patient.[facility] HospitalIn the event this information is protected by the Federal Confidentiality of Alcohol and Drug Abuse Patient Records regulations: The Federal rules restrict any use of the information to criminally investigate or prosecute any alcohol or drug abuse patient.[facility] HospitalIn the event this information is protected by the Federal Confidentiality of Alcohol and Drug Abuse Patient Records regulations: The Federal rules restrict any use of the information to criminally investigate or prosecute any alcohol or drug abuse patient.[facility] HospitalIn the event this information is protected by the Federal Confidentiality of Alcohol and Drug Abuse Patient Records regulations: The Federal rules restrict any use of the information to criminally investigate or prosecute any alcohol or drug abuse patient.[facility] HospitalIn the event this information is protected by the Federal Confidentiality of Alcohol and Drug Abuse Patient Records regulations: The Federal rules restrict any use of the information to criminally investigate or prosecute any alcohol or drug abuse patient.[facility] HospitalIn the event this information is protected by the Federal Confidentiality of Alcohol and Drug Abuse Patient Records regulations: The Federal rules restrict any use of the information to criminally investigate or prosecute any alcohol or drug abuse patient.[facility] HospitalIn the event this information is protected by the Federal Confidentiality of Alcohol and Drug Abuse Patient Records regulations: The Federal rules restrict any use of the information to criminally investigate or prosecute any alcohol or drug abuse patient.[facility] HospitalIn the event this information is protected by the Federal Confidentiality of Alcohol and Drug Abuse Patient Records regulations: The Federal rules restrict any use of the information to criminally investigate or prosecute any alcohol or drug abuse patient.[facility] HospitalIn the event this information is protected by the Federal Confidentiality of Alcohol and Drug Abuse Patient Records regulations: The Federal rules restrict any use of the information to criminally investigate or prosecute any alcohol or drug abuse patient.[facility] HospitalIn the event this information is protected by the Federal Confidentiality of Alcohol and Drug Abuse Patient Records regulations: The Federal rules restrict any use of the information to criminally investigate or prosecute any alcohol or drug abuse patient.[facility] HospitalIn the event this information is protected by the Federal Confidentiality of Alcohol and Drug Abuse Patient Records regulations: The Federal rules restrict any use of the information to criminally investigate or prosecute any alcohol or drug abuse patient.[facility] HospitalIn the event this information is protected by the Federal Confidentiality of Alcohol and Drug Abuse Patient Records regulations: The Federal rules restrict any use of the information to criminally investigate or prosecute any alcohol or drug abuse patient.[facility] HospitalIn the event this information is protected by the Federal Confidentiality of Alcohol and Drug Abuse Patient Records regulations: The Federal rules restrict any use of the information to criminally investigate or prosecute any alcohol or drug abuse patient.[facility] HospitalIn the event this information is protected by the Federal Confidentiality of Alcohol and Drug Abuse Patient Records regulations: The Federal rules restrict any use of the information to criminally investigate or prosecute any alcohol or drug abuse patient.[facility] HospitalIn the event this information is protected by the Federal Confidentiality of Alcohol and Drug Abuse Patient Records regulations: The Federal rules restrict any use of the information to criminally investigate or prosecute any alcohol or drug abuse patient.[facility] HospitalIn the event this information is protected by the Federal Confidentiality of Alcohol and Drug Abuse Patient Records regulations: The Federal rules restrict any use of the information to criminally investigate or prosecute any alcohol or drug abuse patient.[facility] HospitalIn the event this information is protected by the Federal Confidentiality of Alcohol and Drug Abuse Patient Records regulations: The Federal rules restrict any use of the information to criminally investigate or prosecute any alcohol or drug abuse patient.[facility] HospitalIn the event this information is protected by the Federal Confidentiality of Alcohol and Drug Abuse Patient Records regulations: The Federal rules restrict any use of the information to criminally investigate or prosecute any alcohol or drug abuse patient.[facility] HospitalIn the event this information is protected by the Federal Confidentiality of Alcohol and Drug Abuse Patient Records regulations: The Federal rules restrict any use of the information to criminally investigate or prosecute any alcohol or drug abuse patient.[facility] HospitalIn the event this information is protected by the Federal Confidentiality of Alcohol and Drug Abuse Patient Records regulations: The Federal rules restrict any use of the information to criminally investigate or prosecute any alcohol or drug abuse patient.[facility] HospitalIn the event this information is protected by the Federal Confidentiality of Alcohol and Drug Abuse Patient Records regulations: The Federal rules restrict any use of the information to criminally investigate or prosecute any alcohol or drug abuse patient.[facility] HospitalIn the event this information is protected by the Federal Confidentiality of Alcohol and Drug Abuse Patient Records regulations: The Federal rules restrict any use of the information to criminally investigate or prosecute any alcohol or drug abuse patient.[facility] HospitalIn the event this information is protected by the Federal Confidentiality of Alcohol and Drug Abuse Patient Records regulations: The Federal rules restrict any use of the information to criminally investigate or prosecute any alcohol or drug abuse patient.[facility] HospitalIn the event this information is protected by the Federal Confidentiality of Alcohol and Drug Abuse Patient Records regulations: The Federal rules restrict any use of the information to criminally investigate or prosecute any alcohol or drug abuse patient.[facility] HospitalIn the event this information is protected by the Federal Confidentiality of Alcohol and Drug Abuse Patient Records regulations: The Federal rules restrict any use of the information to criminally investigate or prosecute any alcohol or drug abuse patient.[facility] HospitalIn the event this information is protected by the Federal Confidentiality of Alcohol and Drug Abuse Patient Records regulations: The Federal rules restrict any use of the information to criminally investigate or prosecute any alcohol or drug abuse patient.[facility] HospitalIn the event this information is protected by the Federal Confidentiality of Alcohol and Drug Abuse Patient Records regulations: The Federal rules restrict any use of the information to criminally investigate or prosecute any alcohol or drug abuse patient.[facility] HospitalIn the event this information is protected by the Federal Confidentiality of Alcohol and Drug Abuse Patient Records regulations: The Federal rules restrict any use of the information to criminally investigate or prosecute any alcohol or drug abuse patient.[facility] HospitalIn the event this information is protected by the Federal Confidentiality of Alcohol and Drug Abuse Patient Records regulations: The Federal rules restrict any use of the information to criminally investigate or prosecute any alcohol or drug abuse patient.[facility] HospitalIn the event this information is protected by the Federal Confidentiality of Alcohol and Drug Abuse Patient Records regulations: The Federal rules restrict any use of the information to criminally investigate or prosecute any alcohol or drug abuse patient.[facility] HospitalIn the event this information is protected by the Federal Confidentiality of Alcohol and Drug Abuse Patient Records regulations: The Federal rules restrict any use of the information to criminally investigate or prosecute any alcohol or drug abuse patient.[facility] HospitalIn the event this information is protected by the Federal Confidentiality of Alcohol and Drug Abuse Patient Records regulations: The Federal rules restrict any use of the information to criminally investigate or prosecute any alcohol or drug abuse patient.[facility] HospitalIn the event this information is protected by the Federal Confidentiality of Alcohol and Drug Abuse Patient Records regulations: The Federal rules restrict any use of the information to criminally investigate or prosecute any alcohol or drug abuse patient.[facility] HospitalIn the event this information is protected by the Federal Confidentiality of Alcohol and Drug Abuse Patient Records regulations: The Federal rules restrict any use of the information to criminally investigate or prosecute any alcohol or drug abuse patient.[facility] HospitalIn the event this information is protected by the Federal Confidentiality of Alcohol and Drug Abuse Patient Records regulations: The Federal rules restrict any use of the information to criminally investigate or prosecute any alcohol or drug abuse patient.[facility] HospitalIn the event this information is protected by the Federal Confidentiality of Alcohol and Drug Abuse Patient Records regulations: The Federal rules restrict any use of the information to criminally investigate or prosecute any alcohol or drug abuse patient.[facility] HospitalIn the event this information is protected by the Federal Confidentiality of Alcohol and Drug Abuse Patient Records regulations: The Federal rules restrict any use of the information to criminally investigate or prosecute any alcohol or drug abuse patient.[facility] HospitalIn the event this information is protected by the Federal Confidentiality of Alcohol and Drug Abuse Patient Records regulations: The Federal rules restrict any use of the information to criminally investigate or prosecute any alcohol or drug abuse patient.[facility] HospitalIn the event this information is protected by the Federal Confidentiality of Alcohol and Drug Abuse Patient Records regulations: The Federal rules restrict any use of the information to criminally investigate or prosecute any alcohol or drug abuse patient.[facility] HospitalIn the event this information is protected by the Federal Confidentiality of Alcohol and Drug Abuse Patient Records regulations: The Federal rules restrict any use of the information to criminally investigate or prosecute any alcohol or drug abuse patient.[facility] HospitalIn the event this information is protected by the Federal Confidentiality of Alcohol and Drug Abuse Patient Records regulations: The Federal rules restrict any use of the information to criminally investigate or prosecute any alcohol or drug abuse patient.[facility] HospitalIn the event this information is protected by the Federal Confidentiality of Alcohol and Drug Abuse Patient Records regulations: The Federal rules restrict any use of the information to criminally investigate or prosecute any alcohol or drug abuse patient.[facility] HospitalIn the event this information is protected by the Federal Confidentiality of Alcohol and Drug Abuse Patient Records regulations: The Federal rules restrict any use of the information to criminally investigate or prosecute any alcohol or drug abuse patient.[facility] HospitalIn the event this information is protected by the Federal Confidentiality of Alcohol and Drug Abuse Patient Records regulations: The Federal rules restrict any use of the information to criminally investigate or prosecute any alcohol or drug abuse patient.[facility] HospitalIn the event this information is protected by the Federal Confidentiality of Alcohol and Drug Abuse Patient Records regulations: The Federal rules restrict any use of the information to criminally investigate or prosecute any alcohol or drug abuse patient.[facility] HospitalIn the event this information is protected by the Federal Confidentiality of Alcohol and Drug Abuse Patient Records regulations: The Federal rules restrict any use of the information to criminally investigate or prosecute any alcohol or drug abuse patient.[facility] HospitalIn the event this information is protected by the Federal Confidentiality of Alcohol and Drug Abuse Patient Records regulations: The Federal rules restrict any use of the information to criminally investigate or prosecute any alcohol or drug abuse patient.[facility] Reason for Visit (unrecogniz ed section and content) Reason Comments Patient Question Reason Comments Results Reason Comments Refill Request [...] ED Follow-up ER follow up from at [facility] for Diarrhea Reason Comments Medicare [...] ORTHOPAEDICS OFFICE/OUTPATIENT NEW HIGH MDM 60-74 MINUTES Al Nichole APRN.FLIGHT FOLLOWER [address] [place] [address] Referral ID Status Reason Start Date Expiration Date V isits Requested Visits Authorized [id number] Closed PCP Requested Referral 07/09/2023 07/08/2024 1 1 Reason Comments Patient Request Reason Comments Release Of Medical Records Reason Comments infected belly button Problems with speaking and thought proce ss Reason Comments Belly button infection Smelly and itchy drainage Neurologic Problem Difficulty speaking at times, thought process Reason Comments Radiology CT Specialty Diagnoses / Procedures Referred By Phong t Referred To Contact CT IMAGING Diagnoses TIA (transient ischemic attack) Aphasia Ocular migraine Procedures CT BRAIN WO IVCON CT HEAD/BRAIN W/O CONTRAST MATERIAL Irish [place] APRN.FLIGHT FOLLOWER [address] [place] [address] [place] [address] Referral ID Status Reason Start Date Expiration Date V isits Requested Visits Authorized [id number] Closed Auto-Generate d Referral 11/02/2023 12/01/2024 1 1 Reason Comments Hospital F/U Reason Comments 6 mo follow up Reason Comments Orders Reason Comments Established Patient Pain Ingrown Toenail Gait Problem Reason Comments Geriatric Consult Reason Comments Established Patient Pain Ingrown Toenail Reason Comments Follow Up Ingrown Nail Reason Comments Psg Check In (Adult) Reason Comments Establish Care Had sleep study at [facility] facility Specialty Diagnoses / Procedures Referred By Phong antonio Referred To Contact Sleep Medicine Diagnoses Sleep apnea, unspecified type Rochelle Hackett MD [address] [place] [address] Jose Montenegro DO [address] [place] [address] [place] [address] Referral ID Status Reason Start Date Expiration Date V isits Requested Visits Authorized [id number] Pending Review 08/02/2024 08/27/2025 1 1 Reason Onset Date Comments Population Health Navigation Outreach 10/11/2024 Peosta/Workbench/ACO Reason Comments Recheck [facility] ER follow up, fa ll back pain Reason Comments Pain Management Referral Reason Comments Orders [facility] Reason Comments Recheck Reason Onset Date Comments Population Health Navigation Outreach 12/09/2024 Aco high risk attempt # 1 Reason Comments F/U 3 Month Reason Onset Date Comments Refill Request 02/22/2025 Care Teams (unrecognized sec tion and content) Assembler Show Motor Relationship Specialty Start Date End Date Rochelle Hackett MD [address] [place], [place] [address] PCP - General Internal Medicine 08/17/15 Assembler Show Motor Relationship Specialty Start Date End Date Rochelle Hackett MD [address] [place] [address] PCP - General Internal Medicine 08/17/15 Assembler Show Motor Relationship Specialty Start Date End Date Rochelle Hackett MD [address] [place] [address] PCP - General Internal Medicine 08/17/15 Assembler Show Motor Relationship Specialty Start Date End Date Rochelle Hackett MD [address] [place] [address] PCP - General Internal Medicine 08/17/15 Assembler Show Motor Relationship Specialty Start Date End Date Rochelle Hackett MD [address] [place] [address] PCP - General Internal Medicine 08/17/15 Assembler Show Motor Relationship Specialty Start Date End Date Rochelle Hackett MD [address] [place] [address] PCP - General Internal Medicine 08/17/15 Assembler Show Motor Relationship Specialty Start Date End Date Rochelle Hackett MD [address] [place] [address] PCP - General Internal Medicine 08/17/15 Assembler Show Motor Relationship Specialty Start Date End Date Rochelle Hackett MD [address] [place] [address] PCP - General Internal Medicine 08/17/15 Assembler Show Motor Relationship Specialty Start Date End Date Rochelle Hackett MD [address] [place] [address] PCP - General Internal Medicine 08/17/15 Assembler Show Motor Relationship Specialty Start Date End Date Rochelle Hackett MD [address] [place] [address] PCP - General Internal Medicine 08/17/15 Assembler Show Motor Relationship Specialty Start Date End Date Rochelle Hackett MD [address] [place] [address] PCP - General Internal Medicine 08/17/15 Assembler Show Motor Relationship Specialty Start Date End Date Rochelle Hackett MD [address] [place] [address] PCP - General Internal Medicine 08/17/15 Assembler Show Motor Relationship Specialty Start Date End Date Rochelle Hackett MD [address] [place] [address] PCP - General Internal Medicine 08/17/15 Assembler Show Motor Relationship Specialty Start Date End Date Rochelle Hackett MD [address] [place] [address] PCP - General Internal Medicine 08/17/15 Assembler Show Motor Relationship Specialty Start Date End Date Rochelle Hackett MD [address] [place] [address] PCP - General Internal Medicine 08/17/15 Assembler Show Motor Relationship Specialty Start Date End Date Rochelle Hackett MD [address] [place] [address] PCP - General Internal Medicine 08/17/15 Assembler Show Motor Relationship Specialty Start Date End Date Rochelle Hackett MD [address] [place] [address] PCP - General Internal Medicine 08/17/15 Team Status: Active Member Role Status Dates Dr. Rochelle Hackett MD Family Provider Active Dr. Rochelle Hackett MD Primary Care Provider Active Team Status: Inactive Member Role Status Dates Dr. Rochelle Hackett MD Primary Care Provider, Referring Provider Active Dr. Larissa Nguyễn MD Attending Provider Active Team Status: Inactive Member Role Status Dates Dr. Rochelle Hackett MD Primary Care Provider, Referring Provider Active Dr. Erick Blanca MD Attending Provider Active Team Status: Active Member Role Status Dates Dr. Rochelle Hackett MD Primary Care Provider, Family Pr ovider Active Dr. Larissa Nguyễn MD Attending Provider Active Dr. Carlos Sheth MD Referring Provider Active Team Status: Active Member Role Status Dates Dr. Rochelle Hackett MD Primary Care Provider Active KATYA STEARNS Attending Provider, Referring Provide r Active Team Status: Inactive Member Role Status Dates Dr. Rochelle Hackett MD Primary Care Provider Active Dr. Minesh Briones DO Attending Provider, Emergency Pr ovider Active Team Status: Inactive Member Role Status Dates Dr. Rochelle Hackett MD Primary Care Provider Active Dr. Eagle Enciso MD Attending Provider, Referri ng Provider Active Team Status: Inactive Member Role Status Dates Dr. Rochelle Hackett MD Primary Care Provider Active KATYA STEARNS Attending Provider, Referring Provide r Active Assembler Show Motor Relationship Specialty Start Date End Date Rochelle Hackett MD [address] [place], [place] [address] PCP - General Internal Medicine 08/17/15 Team Status: Inactive Member Role Status Dates Dr. Rochelle Hackett MD Primary Care Provider, Referring Provider Active Tanesha Britt PA, PA Attending Provider Active Team Status: Active Member Role Status Dates Dr. Rochelle Hackett MD Primary Care Provider Active Dr. Pamela Prince MD Attending Provider, Referring P rovider Active Team Status: Inactive Member Role Status Dates Dr. Rochelle Hackett MD Primary Care Provider Active Dr. Denzel Boone DO Emergency Provider Active Assembler Show Motor Relationship Specialty Start Date End Date Rochelle Hackett MD [address] [place], [place] [address] PCP - General Internal Medicine 08/17/15 Assembler Show Motor Relationship Specialty Start Date End Date Rochelle Hackett MD [address] [place], [place] [address] PCP - General Internal Medicine 08/17/15 Team Status: Inactive Member Role Status Dates Dr. Rochelle Hackett MD Primary Care Provider, Referring Provider Active Tomeka Ascencio GARLAND MACHINE OPERATOR, GARLAND MACHINE OPERATOR-C Attending Provider Active Team Status: Inactive Member Role Status Dates Dr. Rochelle Hackett MD Primary Care Provider Active Dr. Erick Blanca MD Attending Provider Active Team Status: Inactive Member Role Status Dates Dr. Rochelle Hackett MD Primary Care Provider Active Dr. Denzel Boone DO Attending Provider, Emergency P alphonso Active Assembler Show Motor Relationship Specialty Start Date End Date Rochelle Hackett MD [address] [facility] [address] PCP - General Internal Medicine 08/17/15 Assembler Show Motor Relationship Specialty Start Date End Date Rochelle Hackett MD [address] [facility] [address] PCP - General Internal Medicine 08/17/15 Assembler Show Motor Relationship Specialty Start Date End Date Rochelle Hackett MD [address] [facility] [address] PCP - General Internal Medicine 08/17/15 Team Status: Inactive Member Role Status Dates Dr. Rochelle Hackett MD Primary Care Provider, Referring Provider Active Carolyn Garcia GARLAND MACHINE OPERATOR, GARLAND MACHINE OPERATOR-C Attending Provider Active Team Status: Inactive Member Role Status Dates Dr. Rochelle Hackett MD Primary Care Provider Active Dr. Tejinder Mora MD Emergency Provider Active Assembler Show Motor Relationship Specialty Start Date End Date Rochelle Hackett MD [address] [facility] [address] PCP - General Internal Medicine 08/17/15 Assembler Show Motor Relationship Specialty Start Date End Date Rochelle Hackett MD [address] [facility] [address] PCP - General Internal Medicine 08/17/15 Team Status: Active Member Role Status Dates Dr. Rochelle Hackett MD Primary Care Provider Active Dr. Erick Blanca MD Referring Provider, Other Pro vider Active Dr. Eagle Enciso MD Other Provider Active Dr. Jamel Carty MD Attending Provider Active Team Status: Inactive Member Role Status Dates Dr. Rochelle Hackett MD Primary Care Provider Active Dr. Pamela Prince MD Attending Provider, Referring P rocyndyder Active Team Status: Active Member Role Status Dates Dr. Rochelle Hackett MD Primary Care Provider Active Dr. Erick Blanca MD Attending Provider, Referring Provider Active Dr. Eagle Enciso MD Other Provider Active Team Status: Inactive Member Role Status Dates Dr. Rochelle Hackett MD Primary Care Provider Active Tomeka Ascencio GARLAND MACHINE OPERATOR, GARLAND MACHINE OPERATOR-C Attending Provider, Referring Provider Active Team Status: Inactive Member Role Status Dates Dr. Rochelle Hackett MD Primary Care Provider Active Dr. Tejinder Mora MD Attending Provider, Emergency Provi aline Active Assembler Show Motor Relationship Specialty Start Date End Date Rochelle Hackett MD [address] [facility] [address] PCP - General Internal Medicine 08/17/15 Team Status: Inactive Member Role Status Dates Dr. Rochelle Hackett MD Primary Care Provider Active Dr. Erick Blanca MD Attending Provider, Referring Provider Active Dr. Eagle Enciso MD Other Provider Active Team Status: Inactive Member Role Status Dates Dr. Rochelle Hackett MD Primary Care Provider Active Tanesha Britt PA, PA Attending Provider, Referr ing Provider Active Assembler Show Motor Relationship Specialty Start Date End Date Rochelle Hackett MD [address] [facility] [address] PCP - General Internal Medicine 08/17/15 Assembler Show Motor Relationship Specialty Start Date End Date Rochelle Hackett MD [address] [facility] [address] PCP - General Internal Medicine 08/17/15 Team Status: Active Member Role Status Dates Dr. Rochelle Hackett MD Primary Care Provider Active Dr. Brian Cooley MD Attending Provider Active Team Status: Active Member Role Status Dates Dr. Rochelle Hackett MD Primary Care Provider Active Tanesha Britt PA, PA Referring Provider, Other Provider Active Dr. Brian Cooley MD Attending Provider Active Team Status: Active Member Role Status Dates Dr. Rochelle Hackett MD Primary Care Provider Active Handy Russell GARLAND MACHINE OPERATOR, GARLAND MACHINE OPERATOR-C Attending Provider Active Team Status: Inactive Member Role Status Dates Dr. Rochelle Hackett MD Primary Care Provider Active Bakari Dietrich MD Attending Provider, Emergency Provid er Active Assembler Show Motor Relationship Specialty Start Date End Date Rochelle Hackett MD [address] [place], [place] [address] PCP - General Internal Medicine 08/17/15 Team Status: Inactive Member Role Status Dates Dr. Rochelle Hackett MD Primary Care Provider Active Dr. Erick Blanca MD Attending Provider, Referring Provider Active Team Status: Active Member Role Status Dates Dr. Rochelle Hackett MD Primary Care Provider Active Dr. Brian Cooley MD Attending Provider, Referring Pro vider Active Team Status: Inactive Member Role Status Dates Dr. Rochelle Hackett MD Primary Care Provider Active Dr. Jatinder Fan MD Attending Provider, Emergency Provider Active Team Status: Active Member Role Status Dates Dr. Rochelle Hackett MD Primary Care Provider Active Dr. Erick Blanca MD Attending Provider Active Assembler Show Motor Relationship Specialty Start Date End Date Rochelle Hackett MD [address] [place] [address] PCP - General Internal Medicine 08/17/15 Assembler Show Motor Relationship Specialty Start Date End Date Rochelle Hackett MD [address] [place], [place] [id number] PCP - General Internal Medicine 08/17/15 Assembler Show Motor Relationship Specialty Start Date End Date Rochelle Hackett MD [address] [place], [place] [id number] PCP - General Internal Medicine 08/17/15 Assembler Show Motor Relationship Specialty Start Date End Date Rochelle Hackett MD [address] [place] [address] PCP - General Internal Medicine 08/17/15 Assembler Show Motor Relationship Specialty Start Date End Date Rochelle Hackett MD [address] [place] [address] PCP - General Internal Medicine 08/17/15 Team Status: Active Member Role Status Dates Dr. Rochelle Hackett MD Primary Care Provider Active Dr. Viet Ortez DO Emergency Provider Active Dr. Michelle Hunt MD Admit Provider, Attending Prov ider Active Team Status: Active Member Role Status Dates Dr. Rochelle Hackett MD Primary Care Provider Active Dr. Viet Ortez DO Emergency Provider Active Dr. Michelle Hunt MD Admit Provider, Other Provider Active Dr. Marty Bassett DO Attending Provider, Other Provider Active Team Status: Inactive Member Role Status Dates Dr. Rochelle Hackett MD Primary Care Provider Active Dr. Viet Ortez DO Emergency Provider Active Dr. Michelle Hunt MD Admit Provider, Other Provider Active Dr. Marty Bassett DO Attending Provider Active Team Status: Inactive Member Role Status Dates Dr. Rochelle Hackett MD Primary Care Provider Active Dr. Mayur Tabares DO Emergency Provider Active Assembler Show Motor Relationship Specialty Start Date End Date Rochelle Hackett MD [address] [place] [address] PCP - General Internal Medicine 08/17/15 Team Status: Inactive Member Role Status Dates Dr. Rochelle Hackett MD Primary Care Provider Active Dr. Mayur Tabares DO Attending Provider, Emergency P alphonso Active Team Status: Inactive Member Role Status Dates Dr. Rochelle Hackett MD Primary Care Provider Active Dr. Vinh Colon MD Emergency Provider Active Assembler Show Motor Relationship Specialty Start Date End Date Rochelle Hackett MD [address] [place] [address] PCP - General Internal Medicine 08/17/15 Assembler Show Motor Relationship Specialty Start Date End Date Rochelle Hackett MD [address] [facility] [address] PCP - General Internal Medicine 08/17/15 Assembler Show Motor Relationship Specialty Start Date End Date Rochelle Hackett MD [address] [facility] [address] PCP - General Internal Medicine 08/17/15 Assembler Show Motor Relationship Specialty Start Date End Date Rochelle Hackett MD [address] [facility] [address] PCP - General Internal Medicine 08/17/15 Assembler Show Motor Relationship Specialty Start Date End Date Rochelle Hackett MD [address] [facility] [address] PCP - General Internal Medicine 08/17/15 Assembler Show Motor Relationship Specialty Start Date End Date Rochelle Hackett MD [address] [facility] [address] PCP - General Internal Medicine 08/17/15 Assembler Show Motor Relationship Specialty Start Date End Date Rochelle Hackett MD [address] [facility] [address] PCP - General Internal Medicine 08/17/15 Assembler Show Motor Relationship Specialty Start Date End Date Rochelle Hackett MD [address] [place] [address] PCP - General Internal Medicine 08/17/15 Assembler Show Motor Relationship Specialty Start Date End Date Rochelle Hackett MD [address] [place] [address] PCP - General Internal Medicine 08/17/15 Assembler Show Motor Relationship Specialty Start Date End Date Rochelle Hackett MD [address] [place] [address] PCP - General Internal Medicine 08/17/15 Team Status: Inactive Member Role Status Dates Dr. Rochelle Hackett MD Primary Care Provider Active Dr. Jatinder Fan MD Emergency Provider Active Assembler Show Motor Relationship Specialty Start Date End Date Rochelle Hackett MD [address] [place] [address] PCP - General Internal Medicine 10/29/17 Brian Cooley MD [address] [place] [id number] Cardiovascular Disease 07/19/13 Zak Jara MD [address] [place] [address] [facility] Clinical Cardiac Electrophysiology 07/18/13 Assembler Show Motor Relationship Specialty Start Date End Date Rochelle Hackett MD [address] [place] [address] PCP - General Internal Medicine 08/17/15 Jane Michelle PATreC [address] [place] [address] [facility] 08/21/24 Al Nichole APRN.CNP [address] [place] [address] [facility] 08/21/24 Sofía Baig PA-C [address] [place] [address] [facility] 08/21/24 Assembler Show Motor Relationship Specialty Start Date End Date Rochelle Hackett MD [address] [place], [place] [id number] PCP - General Internal Medicine 08/17/15 Jane Michelle PA-C [address] [place] [address] [facility] 08/21/24 Al Nichole APRN.FLIGHT FOLLOWER [address] [place], [place] [address] [facility] 08/21/24 Sofía Baig PA-C [address] [place], [place] [address] [facility] 08/21/24 Anayeli Pettit, TRELL [address] [place] [address] Water Rights Specialist 09/02/24 Assembler Show Motor Relationship Specialty Start Date End Date Rochelle Hackett MD [address] [place], [place] [address] PCP - General Internal Medicine 10/29/17 Brian Cooley MD [facility] [place] [phone] Cardiovascular Disease 07/19/13 Zak Jara MD [address] [place] [address] [facility] Clinical Cardiac Electrophysiology 07/18/13 Assembler Show Motor Relationship Specialty Start Date End Date Rochelle Hackett MD [address] [place] [address] PCP - General Internal Medicine 08/17/15 Jane Michelle PA-C [address] [place] [address] [facility] 08/21/24 Al Nichole APRN.FLIGHT FOLLOWER [address] [place] [address] [facility] 08/21/24 Sofía Baig PA-C [address] [place] [address] [facility] 08/21/24 Anayeli Pettit, TRELL [address] [place] [address] Water Rights Specialist 09/02/24 Assembler Show Motor Relationship Specialty Start Date End Date Rochelle Hackett MD [address] [place] [address] PCP - General Internal Medicine 08/17/15 Jane Michelle PA-C [address] [place] [address] [facility] 08/21/24 Al Nichole APRN.FLIGHT FOLLOWER [address] [place] [address] [facility] 08/21/24 Sofía Baig PA-C [address] [place] [address] [facility] 08/21/24 Anayeli Pettit, TRELL [address] [place] [address] Water Rights Specialist 09/02/24 Assembler Show Motor Relationship Specialty Start Date End Date Rochelle Hackett MD [address] [place] [address] PCP - General Internal Medicine 08/17/15 Jane Michelle PA-C [address] [place] [address] [facility] 08/21/24 Al Nichole APRN.FLIGHT FOLLOWER [address] [place] [address] [facility] 08/21/24 Sofía Baig PA-C [address] [place] [address] [facility] 08/21/24 Anayeli Pettit RN [address] [place] [address] Water Rights Specialist 09/02/24 Assembler Show Motor Relationship Specialty Start Date End Date Rochelle Hackett MD [address] [place] [address] PCP - General Internal Medicine 08/17/15 Jane Michelle PA-C [address] [place] [address] [facility] 08/21/24 Al Nichole APRN.FLIGHT FOLLOWER [address] [place] [address] [facility] 08/21/24 Sofía Baig PA-C [address] [place] [address] [facility] 08/21/24 Anayeli Pettit, TRELL [address] [place] [address] Water Rights Specialist 09/02/24 Assembler Show Motor Relationship Specialty Start Date End Date Rochelle Hackett MD [address] [place] [address] PCP - General Internal Medicine 08/17/15 Jane Michelle PA-C [address] [place], [place] [id number] [facility] 08/21/24 Al Nichole APRN.FLIGHT FOLLOWER [address] [place] [address] [facility] 08/21/24 Sofía Baig PA-C [address] [place] [address] [facility] 08/21/24 Anayeli Pettit RN [address] [place] [address] Water Rights Specialist 09/02/24 Assembler Show Motor Relationship Specialty Start Date End Date Rochelle Hackett MD [address] [place] [address] PCP - General Internal Medicine 08/17/15 Jane Michelle PA-C [address] [place] [address] [facility] 08/21/24 Al Nichole APRN.FLIGHT FOLLOWER [address] [place] [address] [facility] 08/21/24 Sofía Baig PA-C [address] [place] [address] [facility] 08/21/24 Anayeli Pettit, TRELL [address] [place] [address] Water Rights Specialist 09/02/24 Assembler Show Motor Relationship Specialty Start Date End Date Rochelle Hackett MD [address] [place] [address] PCP - General Internal Medicine 08/17/15 Jane Michelle PA-C [address] [place] [phone] (Fax) [facility] 08/21/24 Al Nichole APRN.CNP [address] [place] [address] [facility] 08/21/24 Sofía Baig PA-C [address] [place] [address] [facility] 08/21/24 Anayeli Pettit RN [address] [place] [address] Water Rights Specialist 09/02/24 Assembler Show Motor Relationship Specialty Start Date End Date Rochelle Hackett MD [address] [place], [place] [id number] PCP - General Internal Medicine 08/17/15 Jane Michelle PA-C [address] [place] [address] [facility] 08/21/24 Al Nichole APRN.FLIGHT FOLLOWER [address] [facility] [place] [address] [facility] 08/21/24 Sofía Baig PA-C [address] [facility] [address] [facility] 08/21/24 Anayeli Pettit, TRELL [address] [place], [place] [id number] Water Rights Specialist 09/02/24 Assembler Show Motor Relationship Specialty Start Date End Date Rochelle Hackett MD [address] [facility] [address] PCP - General Internal Medicine 08/17/15 Al Nichole APRN.FLIGHT FOLLOWER [address] [facility] [place] [address] [facility] 08/21/24 Anayeli Pettit, TRELL [address] [place] [address] Water Rights Specialist 09/02/24 Assembler Show Motor Relationship Specialty Start Date End Date Rochelle Hackett MD [address] [facility] [address] PCP - General Internal Medicine 08/17/15 Al Nichole APRN.FLIGHT FOLLOWER [address] [facility] [place] [address] [facility] Internal Medicine 08/21/24 Anayeli Pettit, TRELL [address] [place], [place] [id number] Water Rights Specialist 09/02/24 Team Status: Active Member Role Status Dates Dr. Rochelle Hackett MD Primary Care Provider Active Team Status: Inactive Member Role Status Dates Dr. Rochelle Hackett MD Primary Care Provider Active Start: September 09, 2024 End: September 09, 2024 Dr. Rochelle Hackett MD Referring Provider Active Start: September 09, 2024 End: September 09, 2024 Dr. Brian Cooley MD Attending Provider Active S tart: September 09, 2024 End: September 09, 2024 Team Status: Active Member Role Status Dates Dr. Rochelle Hackett MD Primary Care Provider Active Start: September 20, 2024 Dr. Rochelle Hackett MD Family Provider Active Sta rt: September 20, 2024 Dr. Larissa Nguyễn MD Attending Provider Active Start: September 20, 2024 Dr. Calros Sheth MD Referring Provider Active Start: September 20, 2024 Team Status: Inactive Member Role Status Dates Dr. Rochelle Hackett MD Primary Care Provider Active Start: October 14, 2024 End: October 14, 2024 Dr. Maya Sal MD Attending Provider Active Start: October 14, 2024 End: October 14, 2024 Dr. Maya Sal MD Referring Provider Active Start: October 14, 2024 End: October 14, 2024 Team Status: Inactive Member Role Status Dates Dr. Rochelle Hackett MD Primary Care Provider Active Start: October 30, 2024 End: October 30, 2024 Dr. Tejinder Mora MD Attending Provider Active Sta rt: October 30, 2024 End: October 30, 2024 Dr. Tejinder Mora MD Emergency Provider Active Sta rt: October 30, 2024 End: October 30, 2024 Team Status: Inactive Member Role Status Dates Dr. Rochelle Hackett MD Primary Care Provider Active Start: December 20, 2024 End: December 20, 2024 Dr. Eagle Enciso MD Attending Provider Active Start: December 20, 2024 End: December 20, 2024 Dr. Eagle Enciso MD Referring Provider Active Start: December 20, 2024 End: December 20, 2024 Team Status: Active Member Role Status Dates Dr. Rochelle Hackett MD Primary Care Provider Active Start: December 20, 2024 Dr. Rochelle Hackett MD Attending Provider Active Start: December 20, 2024 Assembler Show Motor Relationship Specialty Start Date End Date Rochelle Hackett MD [address] [facility] [address] PCP - General Internal Medicine 08/17/15 Jane Michelle PA-C [address] [place] [address] [facility] 08/21/24 12/04/24 Al Nichole APRN.FLIGHT FOLLOWER [address] [facility] [place] [address] [facility] 08/21/24 Sofía Baig PA-C [address] [place] [address] [facility] 08/21/24 12/04/24 Anayeli Pettit, TRELL [address] [place], [place] [id number] Water Rights Specialist 09/02/24 Assembler Show Motor Relationship Specialty Start Date End Date Rochelle Hackett MD [address] [place] [address] PCP - General Internal Medicine 08/17/15 Al Nichole APRN.FLIGHT FOLLOWER [address] [place] [address] [facility] 08/21/24 Anayeli Pettit RN [address] [place] [address] Water Rights Specialist 09/02/24 Assembler Show Motor Relationship Specialty Start Date End Date Rochelle Hackett MD [address] [facility] [address] PCP - General Internal Medicine 08/17/15 Al Nichole APRN.FLIGHT FOLLOWER [address] [place] [address] [facility] 08/21/24 Anayeli Pettit, RN [address] [place] [address] Water Rights Specialist 09/02/24 INFORMATION SOURCE (unrecogn ized section and content) DATE CREATED AUTHOR 07/18/2024 [facility] DATE CREATED AUTHOR AUTHOR'S ORGANIZ ATION 01/16/[address] [facility] DATE CREATED AUTHOR AUTHOR'S ORGANIZ ATION 02/15/2025 [facility] DATE CREATED AUTHOR AUTHOR'S ORGANIZ ATION 02/22/2025 [facility] FOR RECORDS PERTAINING TO PATIENTS WHO ARE [...] BE BASED ON THE PRIMARY CLINICAL RECORDS. [employer] provides no warranty or guarantee of the accuracy or completeness of information in this document.
--- NOTE | 2025-02-24 01:08 | PCM.HP.STD ---
HPI - General General Date of Admission: 02/23/25 Date of Service: 02/24/25 Chief Complaint: Persistent nausea/vomiting HPI Narrative JULIANNA TUCKER, is a 85 F who presented to emergency department [facility] on 02/23/2025 with a chief complaint of nausea and vomiting that started the morning of presentation. Patient reports she vomited several times and felt dehydrated. She has had nausea for couple days now. She states she has very sensitive inner ear and had a recent upper respiratory infection and feels like this was the nidus for this event. She has extensive GI workup for her recurrent nausea and vomiting and has had no clear diagnosis. She also has a history of SIADH and is supposed to be fluid restricted and takes sodium tablets. She states that she has not felt well. Fluid restriction to 18 unable to treat her sodium tablets for about 3 days now. She has had no fever or chills. She reports respiratory symptoms has improved. She has mild lower abdominal cramping which is resolved at time of my evaluation. She has atrial fibrillation and is on dofetilide so she has multiple drug drug interactions with antibiotics. Vital signs on presentation showed temperature 97.9, heart rate 89, respiratory 16, initial blood pressure was 190/103 with repeat 124/60 and pulse ox was 97% on room air. CBC showed leukopenia with a white count of 3.4 but was otherwise unremarkable. Chemistry panel showed hyponatremia with sodium of 124 (baseline appears to be 127-133), hypochloremia with normal renal function and a glucose of 130. UA shows specific gravity of 1.01, glucose area, 15 ketones with occult blood but no signs of infection. CT of the abdomen and pelvis showed no acute findings and trace bilateral pleural effusions. She does have moderate retained fecal material throughout the colon and rectum with nondilated bowel loops and a small hiatal hernia. She had also noted to have severe chronic vertebral compression fracture at L1. She was given 1 L of IV fluids emergency department and her BMP was rechecked her sodium was the same at 124 and patient had some persistent nausea so observation admission with less than 2 midnight hospitalization was pursued. [facility] Medical History Motion sickness Adrenal insufficiency History of atrial flutter Breast pain, right History of breast cancer COVID-19 Chronic diarrhea Osteopenia 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 Lichen sclerosus Atrophic vaginitis TIA (transient ischemic attack) SIADH (syndrome of inappropriate ADH production) Anemia GERD (gastroesophageal reflux disease) Diverticulitis Migraine Osteopenia Nonrheumatic mitral (valve) prolapse Paroxysmal atrial fibrillation Ovarian cyst Compression fracture of L1 lumbar vertebra Paroxysmal atrial flutter Atrial flutter IBS (irritable bowel syndrome) history of blood transfusion 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) Chronic hyponatremia Home Medications ?Medication ?Instructions ?Recorded ?Last Taken ?Type Bilaterl knee high compression #2 ea 05/29/22 Unknown Rx stockings (10-20) calcium carbonate 600 mg PO DAILY 10/14/22 Unknown History cholecalciferol (vitamin D3) 10 2,000 unit PO DAILY supplement 10/14/22 Unknown History mcg (400 unit) capsule ondansetron 4 mg disintegrating 4 mg PO Q8H PRN PRN Nausea #10 tabs 01/23/24 Unknown Rx tablet clobetasol 0.05 % topical cream 1 applic topical .COMPLEX #15 grams 03/08/24 Unknown Rx ascorbate calcium (vitamin C) 500 500 mg PO QDAY 06/07/24 Unknown History mg tablet esomeprazole magnesium 40 mg See Rx Instructions .Route .COMPLEX 09/09/24 Unknown History capsule,delayed release dofetilide 250 mcg capsule 250 mcg PO BID #180 caps 10/06/24 Unknown Rx meclizine .Route PRN dizziness, nausea 10/30/24 Unknown History midodrine 2.5 mg tablet 2.5 mg PO BID #180 tabs 11/08/24 Unknown Rx sodium chloride 1,000 mg soluble 1,000 mg PO DAILY PRN electrolyte 12/26/24 Unknown Rx tablet replenishment #30 tabs magnesium oxide 400 mg (241.3 mg 400 mg PO DAILY #90 tabs 01/30/25 Unknown Rx magnesium) tablet metoprolol succinate 25 mg 25 mg PO .COMPLEX #135 tabs 01/30/25 Unknown Rx tablet,extended release 24 hr apixaban 2.5 mg tablet 2.5 mg PO BID #180 TABLETS 02/22/25 Unknown Rx Allergy/AdvReac Type Severity Reaction Status Date / Time cantaloupe Allergy Severe Anaphylaxis Verified 02/23/25 15:58 grass pollen Allergy Severe Unknown Verified 02/23/25 15:58 Penicillins Allergy Severe Anaphylaxis Verified 02/23/25 15:58 Sulfa (Sulfonamide Allergy Unknown Other Verified 02/23/25 15:58 Antibiotics) mold Allergy Unknown Verified 02/23/25 15:58 pollen extracts Allergy Unknown Verified 02/23/25 15:58 erythromycin base AdvReac Severe Unknown Verified 02/23/25 15:58 lansoprazole (From Prevacid) AdvReac Severe Nausea/Vom/ Verified 02/23/25 15:58 Diarrhea adhesive tape AdvReac Intermediate Rash Verified 02/23/25 15:58 Family History Father Unknown family medical history Mother Uterine cancer Thyroid disorder Kidney disease Hypertension CHF (congestive heart failure) Arthritis Surgical History History of cataract surgery History of colonoscopy (05/2019) History of esophagogastroduodenoscopy (EGD) (05/2019) History of left heart catheterization (09/2012) H/O left mastectomy History of radiofrequency ablation (RFA) procedure for cardiac arrhythmia (08/2013) History of removal of ovarian cyst H/O lymph node biopsy H/O breast biopsy History of dilation and curettage Social History household members: spouse Smoking Status: Never smoker alcohol intake: current alcohol intake frequency: holidays/special occasions only substance use type: does not use caffeine: Yes what type of physical activity do you participate in: walking and yoga frequency: 3-4 times per week seatbelt use: always do you feel safe at home: Yes additional social history: -Tony Patient and are both retired ROS Constitutional Constitutional: Reports anorexia and weakness; Denies change in weight, chills, fatigue, fever(s), malaise, night sweats or other Eyes Eyes: Denies blurry vision, change in eye color, change in vision, discharge from eye(s), double vision, erythema, eye pain, loss of vision or other ENT HEENT: Denies abnormal hearing, dysphagia, ear pain, epistaxis, headache(s), hearing loss, nasal congestion, nasal discharge, post nasal drip, sinus pressure, sore throat or other Cardiovascular Cardiovascular: Denies chest pain, claudication, dyspnea on exertion, edema, lightheadedness, orthopnea, palpitations, paroxysmal nocturnal dyspnea, rapid heart rate, syncope or other Respiratory/Chest Respiratory/Chest: Denies cough, dyspnea, excessive phlegm production, hemoptysis, productive cough, shortness of breath at rest, shortness of breath with exertion, wheezing or other Gastrointestinal Gastrointestinal: Reports abdominal pain, constipation, nausea and vomiting; Denies coffee ground emesis, diarrhea, dyspepsia, hematemesis, hematochezia, loose stools, melena or other Genitourinary Genitourinary: Denies burning urination, difficulty urinating, dysuria, hematuria, nocturia, urinary frequency, urinary hesitancy, urinary incontinence, urinary urgency or other Musculoskeletal Musculoskeletal: Reports back pain; Denies arthralgias, joint pain, joint stiffness, joint swelling, myalgias, neck pain or other Neurologic Neurologic: Denies abnormal gait, abnormal speech, confusion, disequilibrium, dizziness, focal weakness, headache(s), numbness, paresthesias, seizure-like activity, seizures, syncope, tingling, tremor(s) or other Psychiatric Psychiatric: Denies anxiety, depression, homicidal ideation, suicidal ideation or other Endocrine Endocrinology: Denies change in body appearance, cold intolerance, excessive sweating, heat intolerance, polydipsia, polyuria or other Hematologic/Lymphatic Hematologic/Lymphatic: Denies anemia, easy bleeding, easy bruising, lymphadenopathy or other Allergic/Immunologic Allergic/Immunologic: Denies rhinitis, hives, eczemia, asthma or other Vital Signs Vital Signs Vital Signs: 02/23/25 15:56 02/23/25 16:17 02/23/25 18:05 Temperature 97.9 F Temperature Source Temporal Pulse Rate 89 79 Respiratory Rate 16 18 Blood Pressure 190/103 H 186/97 H 124/60 H Blood Pressure Mean 132 126 81 Pulse Ox 97 Oxygen Delivery Method Room Air 02/23/25 20:00 02/23/25 20:46 02/23/25 23:27 Temperature 97.9 F Temperature Source Pulse Rate 75 75 78 Respiratory Rate 16 16 18 Blood Pressure 127/72 H 127/75 H 121/70 H Blood Pressure Mean 90 92 87 Pulse Ox 98 Oxygen Delivery Method Weight Weight: 56.3 kg Body Mass Index (BMI) 19.5 Physical Exam Const alert, oriented x3 and no apparent distress Constitutional Narrative: Elderly, pleasant, white female, appears mildly frail, thin, sitting up in bed, currently appears comfortable, does not look toxic General Appearance: cooperative HEENT normocephalic, head/scalp atraumatic, hearing grossly normal bilaterally and moist oral mucous membranes Eyes conjunctivae normal Eyes Narrative: No scleral icterus Neck supple Neck Narrative: Trachea midline Resp normal respiratory effort, no retractions, no use of accessory muscles and clear to auscultation bilaterally Auscultation: Negative for rales, rhonchi or wheezes Cardio regular rate, regular rhythm, S1 normal heart sound, S2 normal heart sound, no murmurs, no rub, no gallops and no clicks GI normal to inspection, nondistended, normoactive bowel sounds, soft to palpation and non-tender GI Narrative: Scaphoid abdomen Extremity no clubbing, cyanosis or edema Extremity Narrative: Decreased lean muscle mass, 2+ pedal and radial pulses Neuro oriented x3, moves all extremities and no focal motor deficits Speech: speech normal Psych affect normal Mood & Affect: anxious Results Lab / Micro Data 02/23/25 16:30 02/23/25 21:12 Labs: Laboratory Results - last 24 hr 02/23/25 16:30: WBC 3.4 L, RBC 3.95 L, Hgb 13.2, Hct 37.5, MCV 94.9, MCH 33.4 H, MCHC 35.2, RDW Std Deviation 44.3 H, RDW Coeff of Idania 12.6, Plt Count 233, MPV 9.4, Immature Gran % (Auto) 0.300, Neut % (Auto) 56.3, Lymph % (Auto) 35.5, [place] % (Auto) 7.3, Eos % (Auto) 0.0, Baso % (Auto) 0.6, Absolute Neuts (auto) 1.9 L, Absolute Lymphs (auto) 1.21, Nucleated RBC % 0 02/23/25 18:06: Urine Color Straw, Urine Clarity Clear, Urine pH 7.0, Ur Specific Dennis 1.010, Urine Protein 30 H, Urine Glucose (UA) 100 H, Urine Ketones 15 H, Urine Occult Blood 50 H, Urine Nitrite Negative, Urine Bilirubin Negative, Urine Urobilinogen Normal, Ur Leukocyte Esterase Negative, Urine RBC 0-5 SEEN, Urine WBC 0-5 SEEN, Ur Squamous Epith Cells 0-5 SEEN, Urine Bacteria 0 SEEN, Urine Mucus 0 SEEN 02/23/25 18:30: Sodium 124 L, Potassium 3.8, Chloride 90 L, Carbon Dioxide 21.3, Anion Gap 13, BUN 14, Creatinine 0.68 L, Estim Creat Clear Calc 47.36 L, Est GFR (MDRD) Non-Af 86, BUN/Creatinine Ratio 20.7 H, Glucose 130 H, Calcium 7.8 02/23/25 21:12: Sodium 124 L Imaging Radiology Impression Abdomen/Pelvis CT 02/23/25 17:13 IMPRESSION: 1. No acute abdominopelvic finding. 2. Trace bilateral pleural effusions. Reading Location: [id number] Assessment & Plan Assessment/Plan (1) Nausea and vomiting: (2) Hyponatremia: (3) Leukopenia: PLAN: Plan Nausea and vomiting - Patient has acute on chronic nausea and vomiting - Had extensive outpatient workup with GI and they believe that she just has a sensitive vestibular system and has easily elicited nausea vomiting related to this - Had recent URI and believes it is related to this with decreased p.o. intake, inability to take her salt tablets and persistent water intake is able - Patient has multiple drug-drug interactions with the dofetilide--> discussed with pharmacy and Reglan does not interact - Reglan 5 mg every 6 as needed for nausea vomiting - Will stop IV fluids due to hyponatremia and history of SIADH - Regular diet as able Acute on chronic hyponatremia secondary to SIADH - Baseline appears to run between 127 and 133 - 124 on presentation - Patient has not been as fluid restrictive as typical and has not been able to take her salt tablets for about 3 days now - Will increase salt tablets to 3 times daily for now until we can catch up and fluid restrict to 1250 cc daily - Discontinue IV fluids start in the emergency department - Repeat lab in a.m. Leukopenia - Appears to be acute - May be related to recent URI and suspected viral illness - Repeat lab as an outpatient Paroxysmal atrial fibrillation - continue home apixaban - Continue home beta-elsa - Continue home dofetilide Chronic orthostatic hypotension - Continue home midodrine 2.5 mg p.o. twice daily MVP -Monitored by cardiology Chronic L1 compression fracture - As needed Tylenol available - Patient has known osteopenia at baseline Osteopenia - Continue vitamin D and calcium supplementation History of GERD - Appears patient was previously on PPI but not currently - Monitor for symptoms DVT prophylaxis - Continue home apixaban CODE STATUS - Full code as verified Charges/Coding Visit Charges Inpatient E&M: 52875 Init Hosp L2
--- OUTSIDE RECORDS SUMMARY | 2025-02-24 01:20 | XMS RPT_ITS | CCD ---
Author Organization [facility] Care Team Providers Care Alarm Investigator Name Role Phone Roof DIALYSIS CHIEF EQUIPMENT TECHNICIAN, Handy Sullivan Unavailable Dr. Rochelle Hackett Primary [...] Provider Dr. Erick Blanca Attending Provider Silva DIALYSIS CHIEF EQUIPMENT TECHNICIAN, DIALYSIS CHIEF EQUIPMENT TECHNICIAN-C [place] Attending Provider Jose DIALYSIS CHIEF EQUIPMENT TECHNICIAN, DIALYSIS CHIEF EQUIPMENT TECHNICIAN-C Carolyn Attending Provider Dr. Rochelle Hackett Primary Care Provider Dr. Rochelle Hackett Referring Provider Dr. Erick Blanca Referring Provider Dr. Erick Blanca Other Provider Dr. Eagle Enciso Other Provider Dr. Jamel Carty Attending Provider Dr. Rochelle Hackett Primary Care Provider Dr. Rochelle Hackett Referring Provider Dr. Erick Blanca Attending Provider Silva DIALYSIS CHIEF EQUIPMENT TECHNICIAN, DIALYSIS CHIEF EQUIPMENT TECHNICIAN-C [place] Attending Provider Jose SALVADOR NP-C Carolyn Attending Provider Dr. Erick Blanca Referring Provider Dr. Erick Blanca Other Provider Dr. Eagle Enciso Other Provider Dr. Jamel Carty Attending Provider RIGOBERTO David Attending Provider Dr. Rochelle Hackett Primary Care Provider Dr. Rochelle Hackett Referring Provider Dr. Brian Cooley Attending Provider [phone] RIGOBERTO David Referring Provider RIGOBERTO David Other Provider [phone] Roof DIALYSIS CHIEF EQUIPMENT TECHNICIAN, DIALYSIS CHIEF EQUIPMENT TECHNICIAN-C Handy Sullivan Attending Provider Dr. Rochelle Hackett Primary Care Provider Dr. Rochelle Hackett Referring Provider Dr. Brian Cooley Referring Provider [phone] Erick Blanca Attending Provider Dr. Erick Blanca Referring Provider Silva DIALYSIS CHIEF EQUIPMENT TECHNICIAN, DIALYSIS CHIEF EQUIPMENT TECHNICIAN-C [place] Attending Provider Dr. Rochelle Hackett Primary Care Provider Dr. Rochelle Hackett Referring Provider Dr. Rochelle Hackett Primary Care Provider Dr. Brian Cooley Attending Provider [phone] Brian Cooley Referring Provider [phone] RIGOBERTO David Referring Provider RIGOBERTO David Other Provider [phone] Roof DIALYSIS CHIEF EQUIPMENT TECHNICIAN, DIALYSIS CHIEF EQUIPMENT TECHNICIAN-Eri Sullivan Attending Provider Dr. Erick Blanca Attending Provider Dr. Erick Blanca Referring Provider Dr. Rochelle Hackett Referring Provider Silva DIALYSIS CHIEF EQUIPMENT TECHNICIAN, DIALYSIS CHIEF EQUIPMENT TECHNICIAN-C [place] Attending Provider Dr. 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, Al Unavailable Safia CHENG, Sofía Unavailable Amador [...] Care Unavailable OLDER, AL Referring Unavailable GANTA, ROCEHLLE Primary Care Unavailable OLDER, AL Referring Unavailable [...] Primary Care Unavailable Ganta, Rochelle Referring Unavailable YasirJeffryMontrose Attending Unavailable Ganta, Rochelle Primary Care Unavailable Ganta, Rochelle Referring Unavailable Baddour, Erick Attending Unavailable Ganta, Rochelle Primary Care Unavailable Ganta, Rochelle Referring Unavailable Demiter, Jayjay Attending Unavailable Ganta, Rochelle Referring Unavailable Baddour, Erick Attending Unavailable Ganta, Rochelle Primary Care Unavailable Ganta, Rochelle Primary Care Unavailable Ganta, Rochelle Referring Unavailable Samuel DIALYSIS CHIEF EQUIPMENT TECHNICIAN, Tasha Attending Unavailable Ganta, Rochelle Primary Care Unavailable Ganta, Rochelle Referring Unavailable Isckarus, Larissa Attending Unavailable Ganta, Rochelle Primary Care Unavailable Silva DIALYSIS CHIEF EQUIPMENT TECHNICIAN, Tomeka Attending Unavailable Silva DIALYSIS CHIEF EQUIPMENT TECHNICIAN, Tomeka Referring Unavailable Ganta, Rochelle Primary Care Unavailable Magalang, Maya Referring Unavailable Magalang, Maya Attending Unavailable Ganta, Rochelle Primary Care Unavailable Ganta, Rochelle Attending Unavailable Ganta, Rohcelle Primary Care Unavailable Jay, Girish Attending Unavailable Ganta, Rochelle Primary Care Unavailable Mora, Tejinder Attending Unavailable Ganta, Rochelle Primary Care Unavailable Fernie, Jayaprakas Referring Unavailable Fernie, Jayaprakas Attending Unavailable [facility] Primary Care Unavailable Prayson, Toribio Referring Unavailable Prayson, Toribio Attending Unavailable Allergies Allergy Classification Reported Allergen(s) Allergy Type Date of Onset Reaction(s) Facility (20 sources) Adhesive Tape; Translations: [ADHESIVE TAPE] allergy to substance 7 Unknown, Rash [facility] Work Phone: [phone] (20 sources) bee pollen; Translations: [POLLEN] allergy to substance 5 unknown [facility] Work Phone: [phone] (20 sources) cantaloupe allergenic extract; Translations: [CANTALOUPE] Drug Allergy 5 unknown, Anaphylaxis [facility] Work Phone: [phone] (20 sources) erythromycin; Translations: [ERYTHROMYCIN] Drug Allergy 5 GI Upset [facility] Work Phone: [phone] (20 sources) Grass pollen; Translations: [GRASS POLLEN] drug allergy 5 unknown [facility] Work Phone: [phone] (3 sources) lansoprazole Drug Allergy 7 unknown [facility] Work Phone: [phone] (20 sources) mold extract; Translations: [MOLD] Drug Allergy 5 unknown [facility] Work Phone: (3 sources) penicillin Drug Allergy 1 Inside of mouth swelled [facility] Work Phone: [phone] (3 sources) Sulfonamides (Antibiotic) drug allergy 7 unknown [facility] Work Phone: [phone] (20 sources) Erythromycin Drug Allergy 2 Unknown [facility] Comment on above: STOMACH PAIN (20 sources) lansoprazole; Translations: [LANSOPRAZOLE] Drug Allergy 4 Diarrhea [facility] Work Phone: Comment on above: NAUSEA (20 sources) Penicillins; Translations: [PENICILLINS] Allergy to substance 5 Rash, Swelling [facility] Work Phone: (20 sources) Pollen Allergy to substance 2 Unknown [facility] (20 sources) Adhesive Tape; Translations: [ADHESIVE TAPE (ROSINS)] Allergy to substance 4 Rash [facility] Work Phone: (20 sources) Sulfonamides (Antibiotic); Translations: [SULFA (SULFONAMIDE ANTIBIOTICS)] Propensity to adverse reactions 5 [facility] Work Phone: (20 sources) Sulfonamides (Antibiotic) Allergy to substance 2 Other [facility] (20 sources) Vibegron; Translations: [VIBEGRON] Drug Intolerance 3 Diarrhea [facility] Work Phone: (2 sources) *Adhesive Tape Propensity to adverse reactions 3 Itching, Swelling, Redness [facility] Work Phone: (1 source) Erythromycin Drug Allergy 5 [facility] Repository (1 source) lansoprazole Drug Allergy 5 [facility] (1 source) Pollen Drug allergy (disorder) 5 [facility] (1 source) Sulfonamides (Antibiotic) Drug allergy (disorder) 5 [facility] Medications Current Medications Medication Drug [...] One tablet by mouth twice daily DOFETILIDE [id number] Brian Cooley MD Start: 07-21-2013 End: 09-28-2013 take 1 tablet by mouth twice daily TIKOSYN 250 MCG CAPS One tablet by mouth twice daily DOFETILIDE [id number] Brian Cooley MD Start: 07-20-2013 End: 10-06-2024 [...] 10 M G CHEW As needed FAMOTIDINE [id number] Jacquelin Mclean Start: 12-19-2010 End: 07-20-2014 PEPCID AC 10 MG CHEW As need ed FAMOTIDINE [id number] Brian Cooley MD take 10 mg by [...] TABS as needed for nausea MECLIZINE HCL [id number] Evangelina Armando RN Start: 04-07-2016 MECLIZINE HCL 25 MG TABS as needed MECLIZINE HCL [id number] Evangelina Armando RN Start: 12-19-2010 End: 09-08-2013 MECLIZINE HCL 12.5 MG TABS A s needed, takes rarely MECLIZINE HCL 96946743559 Debra Leung RN Comment on above: Take [...] MG TABS As needed, takes occasionally ACETAMINOPHEN 59137863273 Jacquelin Mclean take 2 tablets by mo [...] One tablet by mouth daily ASCORBIC ACID [id number] Brian Cooley MD ascorbic acid 113 mg [...] TABS One tablet by mouth daily ASPIRIN [id number] Tanesha Britt PA-C Start: 12-19-2010 End: 09-29-2024 [...] tablets by mouth daily CALCIUM CARBONATE-VITAMIN D 15193427494 Jacquelin Mclean calcium citrate / vitamin D (3 sources) Start: 12-19-2010 take 1 tablet by mouth once daily CALCIUM 600-200 MG-UNIT TABS One tablet by mouth daily CALCIUM-VITAMIN D [id number] Evangelina Armando RN ciclopirox 7.7 mg/ml topical lotion (3 sources) Start: 11-03-2016 LOPROX 0.77 % (Susp) KIT apply as directed CICLOPIROX OLAMINE-CLEANSER [id number] Evangelina Armando RN Cortisol Dry Finisher Allergen Free ([employer]) (1 source) Start: 03-21-2021 End: 07-17-2021 Cortisol Dry Finisher Allergen Free ([employer]) For adults, take [...] MG TABS As needed, takes rarely DIMENHYDRINATE 89607702656 Debra Leung RN docusate sodium 100 mg oral capsule (8 sources) Start: 017 End: take 1 tablet by mouth twice daily COLACE 100 MG CAPS One tablet by mouth twice daily DOCUSATE SODIUM 22698202966 Evangelina Armando RN End: 09-29-2024 take 100 mg by mouth twice daily Docusate Calcium (STOOL SOFTENER PO) Indications: Sinus pause , A-fib , Pulmonary vein stenosis , Pre-procedure lab exam , 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 09/29/2024 Discontinued (Therapy completed) estrogens, conjugated (long term) 0.625 mg/ml vaginal cream (11 sources) Estrogen Start: 02-22-2016 PREMARIN 0.625 MG/GM CREA as directed ESTROGENS, CONJUGATED [id number] Brian Cooley MD Start: 12-19-2010 End: 09-08-2013 PREMARIN 0.625 MG/GM CREA as directed ESTROGENS, CONJUGATED [id number] Brian Cooley MD estrogens conjug ated (PREMARIN) 0.625 MG/GM VA CREA by Vaginal route every 7 days. Active flecainide acetate 50 mg oral tablet (20 sources) Antiarrhythmic Start: 06-29-2013 End: 07-15-2013 FLECAINIDE ACETATE 50 MG TABS One and 1/2 tablets by mouth twice daily FLECAINIDE ACETATE 80866010498 Evangelina Armando RN Start: 09-13-2012 take 1 tablet by louise once daily FLECAINIDE ACETATE 100 MG TABS One half tablet by mouth once daily FLECAINIDE ACETATE 51199874093 Evangelina Armando RN Start: 12-19-2010 End: 09-01-2012 take 1 tablet by mouth twice daily FLECAINIDE ACETATE 100 MG TABS One tablet by mouth twice daily FLECAINIDE ACETATE 52957269239 Brian Cooley MD furosemide 20 mg oral [...] 1 tablet by mouth monthly IBANDRONATE SODIUM [id number] Brian Cooley MD ibuprofen 200 mg oral tablet (6 sources) Nonsteroidal Anti-inflammatory Drug Start: 12-19-2010 End: 11-17-2012 ADVIL 200 MG TABS As needed, takes very occasionally IBUPROFEN 46859739133 Jacquelin Mclean Inflammatone ([employer]) decrease inflammation/pain (1 source) Start: 03-21-2021 End: 11-13-2021 Inflammatone ([employer]) decrease inflammation/pain take two capsules daily, between meals 0 03/21/2021 11/13/2021 Discontinued (Discontinued by Patient) ISOSORBIDE MONONITRATE TABS (6 sources) Nitrate Vasodilator Start: 12-19-2010 End: 03-09-2012 ISOSORBIDE MONONITRATE TABS 25mg - 1/2 tablet twice daily ISOSORBIDE MONONITRATE TABS [id number] Brian Cooley MD Start: 12-19-2010 ISOSORBIDE MON ONITRATE TABS 25mg - 1/2 tablet twice daily ISOSORBIDE MONONITRATE TABS [id number] Jacquelin Mclean lansoprazole 30 mg extended release [...] tablet by mouth twice daily MAGNESIUM OXIDE [id number] Brian Cooley MD Start: 12-19-2010 End: 11-17-2012 take 1 tablet by mouth once daily MAGNESIUM OXIDE 250 MG TABS One tablet by mouth daily MAGNESIUM OXIDE 16519558483 Jacquelin Mclean MASTECTOMY BRA (3 sources) Start: 05-11-2017 MASTECTOMY BRA Left breast cancer MASTECTOMY BRA Josie Del Toro PA-C memantine hydrochloride 10 mg oral tablet (20 sources) I-svbfja-[id number]-aspart ate Receptor Antagonist Start: 12-18-2020 End: 03-19-2021 [...] louise once daily TOPROL XL 25 MG [id number] One tablet by mouth daily METOPROLOL SUCCINATE 13685620521 Tanesha Britt PA-C Start: 12-29-2011 End: 10-11-2012 take 0.5 tablet by mouth twice daily METOPROLOL TARTRATE 25 MG TABS 1/2 tablet by mouth twice daily METOPROLOL TARTRATE [id number] Evangelina Armando RN Comment on above: Take [...] One tablet by mouth daily MULTIPLE VITAMINS-MINERALS 78372330133 Brian Cooley MD Start: 12-19-2010 take 1 tablet by louise th once daily OCUVITE PRESERVISION TABS One tablet by mouth daily MULTIPLE VITAMINS-MINERALS 79876808412 Jacquelin Mclean nitrofurantoin, macrocrystals 50 mg oral capsule (6 sources) Start: 12-19-2010 End: 09-08-2013 NITROFURANTOIN MACROCRYSTAL 50 MG CAPS 1 capsule daily as needed to prevent UTI NITROFURANTOIN MACROCRYSTAL 24077306823 Debra Leung RN [employer] [place] (Pure Encapsulation) -- fish oil (20 sources) Start: 03-21-2021 End: 08-25-2022 take 2 capsules by mouth once daily at mealtime [employer] [place] (Pure Encapsulation) -- fish oil Take 2 capsules by mouth daily with food. 0 03/21/2021 08/25/2022 Discontinued Start: 03-21-2021 take 2 capsules by m outh once daily at mealtime [employer] [place] (Pure Encapsulation) -- fish oil Take 2 [...] hours as needed for nausea PROMETHAZINE HCL 63222774709 Debra Leung RN raNITIdine 150 mg oral [...] after a meal as needed RANITIDINE HCL [id number] Brian Cooley MD sertraline 25 mg oral [...] 1/2 tablet by mouth daily SERTRALINE HCL [id number] Brian Cooley MD Start: 09-28-2013 take 1 tablet by louise th once daily ZOLOFT 50 MG TABS One tablet by mouth daily SERTRALINE HCL 53881095366 Brian Cooley MD End: 09-29-2024 take 0.5 [...] tablet by mouth daily B COMPLEX VITAMINS 63799128040 Jacquelin Mclean Start: 12-19-2010 End: 11-17-2012 take 1 tablet by mouth once daily VITAMIN B COMPLEX TABS One tablet by mouth daily B COMPLEX VITAMINS 15087851024 Brian Cooley MD vitamin d 1000 unt oral tablet (6 sources) Start: 03-22-2013 take 1 tablet by mouth once daily VITAMIN D 1000 UNIT TABS One tablet by mouth daily CHOLECALCIFEROL 81588723017 Brian Cooley MD Start: 12-19-2010 take 1800 [IU] by mo [facility] once daily, then take 1 tablet by mouth VITAMIN D 1000 UNIT TABS 1800 units One tablet by mouth daily CHOLECALCIFEROL 61663237044 Jacquelin Mclean Vitamin D3 5000 Unit (Pure [...] TABS 7.5 mg every day WARFARIN SODIUM 81140530045 Debra Leung RN Start: 07-21-2013 COUMADIN 5 MG TABS take as directed, current dose is 7.5 mg x 6 days, 5 mg x 1 day WARFARIN SODIUM 67511183097 Brian Cooley MD zinc gluconate 50 mg oral tablet (6 sources) Start: 12-19-2010 End: 11-17-2012 take 1 tablet by mouth once daily ZINC GLUCONATE 50 MG TABS One tablet by mouth daily ZINC GLUCONATE 36370813541 Jacquelin Mclean zolpidem tartrate 5 mg oral tablet (6 sources) gamma-Aminobuty devika Acid-ergic Agonist Start: 11-17-2012 End: 09-08-2013 take 1 tablet by mouth at bedtime AMBIEN 5 MG TABS One tablet by mouth at bedtime. 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] Episodic Other aftercare (1 source) Removal of sutures done; Translations: [Encounter for removal of sutures] Episodic Other aftercare (1 source) Long-term current use of anticoagulant; Translations: [detention (current) use of anticoagulants] 11-07-2024 Episodic Other [...] 11-18-2019 Episodic Other aftercare (1 source) Other longterm (current) drug therapy; Translations: [Medication management] Onset: [...] Name Value Interpretation Reference Range Facility 25(OH)D3 [facility] 2024 25-hydroxyvitamin D3 [Mass/Vol] 49.4 ng/mL Normal 31.0-80.0 [facility] Comment on above: Order Comment: Speci men Type: BLOOD SPECIMENOrdering Facility: [facility] Address: [address] [place] [address] Result Comment: Clas sification of 25 [place] Vitamin D status: Deficiency/Insufficiency: < or = 30 ng/ml. Sufficiency/Optimal Levels: 31-80 ng/mL Toxicity: > 100 ng/mL. Test performed by chemiluminescent immunoassay. Performed By: #### 1 989-3 ####[facility] LABIA [id number] [place] [address] [place] CBC W Auto Differential pane l (Bld)on 02-14-2025 Basophils (Bld) [#/Vol] 0.05 10*3/uL Normal <0.11 [facility] Comment on above: Order Comment: Speci men Type: BLOOD SPECIMENOrdering Facility: [facility] Address: [address] [place] [address] Performed By: #### 5 7021-8 ####[facility] LABIA [id number] [place] [address] [place] Basophils/100 WBC (Bld) 1.3 % Normal [facility] Comment on above: Order Comment: Speci men Type: BLOOD SPECIMENOrdering Facility: [facility] Address: [address] [place] [address] Performed By: #### 5 7021-8 ####[facility] LABCLIA [id number] [place] [address] [place] Differential cell count method Nom (Bld) Auto Normal [facility] Comment on above: Order Comment: Speci men Type: BLOOD SPECIMENOrdering Facility: [facility] Address: [address] [place] [address] Performed By: #### 5 7021-8 ####[facility] LABCLIA [id number] [place] [address] [place] Eosinophils (Bld) [#/Vol] 0.15 10*3/uL Normal <0.46 [facility] Comment on above: Order Comment: Speci men Type: BLOOD SPECIMENOrdering Facility: [facility] Address: [address] [place] [address] Performed By: #### 5 7021-8 ####[facility] LABCLIA [id number] [place] [address] [place] Eosinophils/100 WBC (Bld) 3.8 % Normal [facility] Comment on above: Order Comment: Speci men Type: BLOOD SPECIMENOrdering Facility: [facility] Address: [address] [place] [address] Performed By: #### 5 7021-8 ####[facility] LABCLIA [id number] [place] [address] [place] Erythrocyte distribution width (RBC) [Ratio] 13.7 % Normal 11.5-15.0 [facility] Comment on above: Order Comment: Speci men Type: BLOOD SPECIMENOrdering Facility: [facility] Address: [address] [place] [address] Performed By: #### 5 7021-8 ####[facility] LABCLIA [id number] [place] [address] [place] Hematocrit (Bld) [Volume fraction] 35.2 % Low 36.0-46.0 [facility] Comment on above: Order Comment: Speci men Type: BLOOD SPECIMENOrdering Facility: [facility] Address: [address] [place] [address] Performed By: #### 5 7021-8 ####[facility] LABCLIA [id number] [place] [address] [place] Hemoglobin (Bld) [Mass/Vol] 11.7 g/dL Normal 11.5-15.5 [facility] Comment on above: Order Comment: Speci men Type: BLOOD SPECIMENOrdering Facility: [facility] Address: [address] [place] [address] Performed By: #### 5 7021-8 ####[facility] LABCLIA [id number] [place] [address] [place] Immature granulocytes (Bld) [#/Vol] 10*3/uL Normal <0.10 [facility] Comment on above: Order Comment: Speci men Type: BLOOD SPECIMENOrdering Facility: [facility] Address: [address] [place] [address] Performed By: #### 5 7021-8 ####[facility] LABCLIA [id number] [place] [address] [place] Immature granulocytes/100 WBC (Bld) 0.3 % Normal [facility] Comment on above: Order Comment: Speci men Type: BLOOD SPECIMENOrdering Facility: [facility] Address: [address] [place] [address] Performed By: #### 5 7021-8 ####[facility] LABCLIA [id number] [place] [address] [place] Lymphocytes (Bld) [#/Vol] 1.81 10*3/uL Normal 1.00-4.00 [facility] Comment on above: Order Comment: Speci men Type: BLOOD SPECIMENOrdering Facility: [facility] Address: [address] [place] [address] Performed By: #### 5 7021-8 ####[facility] LABCLIA [id number] [place] [address] [place] Lymphocytes/100 WBC (Bld) 45.4 % Normal [facility] Comment on above: Order Comment: Speci men Type: BLOOD SPECIMENOrdering Facility: [facility] Address: [address] [place] [address] Performed By: #### 5 7021-8 ####[facility] LABIA [id number] [place] [address] [place] MCH (RBC) [Entitic mass] 33.0 pg Normal 26.0-34.0 [facility] Comment on above: Order Comment: Speci men Type: BLOOD SPECIMENOrdering Facility: [facility] Address: [address] [place] [address] Performed By: #### 5 7021-8 ####[facility] [id number] [place] [address] [place] MCHC (RBC) [Mass/Vol] 33.2 g/dL Normal 30.5-36.0 [facility] Comment on above: Order Comment: Speci men Type: BLOOD SPECIMENOrdering Facility: [facility] Address: [address] [place] [address] Performed By: #### 5 7021-8 ####[facility] LABIA [id number] [place] [address] [place] MCV (RBC) [Entitic vol] 99.2 fL Normal 80.0-100.0 [facility] Comment on above: Order Comment: Speci men Type: BLOOD SPECIMENOrdering Facility: [facility] Address: [address] [place] [address] Performed By: #### 5 7021-8 ####[facility] LABIA [id number] [place] [address] [place] Monocytes (Bld) [#/Vol] 0.52 10*3/uL Normal <0.87 [facility] Comment on above: Order Comment: Speci men Type: BLOOD SPECIMENOrdering Facility: [facility] Address: [address] [id number] Performed By: #### 5 7021-8 ####[facility] LABCLIA [id number] [address] [address] [place] Monocytes/100 WBC (Bld) 13.0 % Normal [facility] Comment on above: Order Comment: Speci men Type: BLOOD SPECIMENOrdering Facility: [facility] Address: [address] [place] [address] Performed By: #### 5 7021-8 ####[facility] LABCLIA [id number] [address], [facility] [place] Neutrophils (Bld) [#/Vol] 1.45 10*3/uL Normal 1.45-7.50 [facility] Comment on above: Order Comment: Speci men Type: BLOOD SPECIMENOrdering Facility: [facility] Address: [address] [place] [address] Performed By: #### 5 7021-8 ####[facility] LABCLIA [id number] [place] [id number] [place] Neutrophils/100 WBC (Bld) 36.2 % Normal [facility] Comment on above: Order Comment: Speci men Type: BLOOD SPECIMENOrdering Facility: [facility] Address: [address] [place] [address] Performed By: #### 5 7021-8 ####[facility] LABCLIA [id number] [address] [address] [place] Nucleated RBC (Bld) [#/Vol] 10*3/uL Normal <0.01 [facility] Comment on above: Order Comment: Speci men Type: BLOOD SPECIMENOrdering Facility: [facility] Address: [address] [place], [place] [address] Performed By: #### 5 7021-8 ####[facility] LABCLIA [id number] [place] [address] [place] Nucleated RBC/100 WBC (Bld) [Ratio] 0.0 /100 WBC Normal [facility] Comment on above: Order Comment: Speci men Type: BLOOD SPECIMENOrdering Facility: [facility] Address: [address] [place] [address] Performed By: #### 5 7021-8 ####[facility] LABCLIA [id number] [place] [address] [place] Platelet mean volume (Bld) [Entitic vol] 10.1 fL Normal 9.0-12.7 [facility] Comment on above: Order Comment: Speci men Type: BLOOD SPECIMENOrdering Facility: [facility] Address: [address] [place] [address] Performed By: #### 5 7021-8 ####[facility] LABIA [id number] [place] [address] [place] Platelets (Bld) [#/Vol] 243 10*3/uL Normal 150-400 [facility] Comment on above: Order Comment: Speci men Type: BLOOD SPECIMENOrdering Facility: [facility] Address: [address] [place] [address] Performed By: #### 5 7021-8 ####[facility] LABIA [id number] [place] [address] [place] RBC (Bld) [#/Vol] 3.55 10*6/uL Low 3.90-5.20 [facility] Comment on above: Order Comment: Speci men Type: BLOOD SPECIMENOrdering Facility: [facility] Address: [address] [place] [address] Performed By: #### 5 7021-8 ####[facility] LABCLIA [id number] [place] [address] [place] WBC (Bld) [#/Vol] 3.99 10*3/uL Normal 3.70-11.00 [facility] Comment on above: Order Comment: Speci men Type: BLOOD SPECIMENOrdering Facility: [facility] Address: [address] [place] [address] Performed By: #### 5 7021-8 ####[facility] LABCLIA [id number] [address] [address] [place] Comprehensive metabolic 2000 panelon 02-14-2025 Albumin [Mass/Vol] 3.8 g/dL Low 3.9-4.9 [facility] Comment on above: Order Comment: Speci men Type: BLOOD SPECIMENOrdering Facility: [facility] Address: [address] [place] [address] Performed By: #### 2 4331-1, 30204-5 ####[facility] LABCLIA [id number] [place] [address] [place] ALP [Catalytic activity/Vol] 83 U/L Normal 34-123 [facility] Comment on above: Order Comment: Speci men Type: BLOOD SPECIMENOrdering Facility: [facility] Address: [address] [place] [address] Performed By: #### 2 4331-1, 98581-4 ####[facility] LABCLIA [id number] [place] [id number] [place] ALT [Catalytic activity/Vol] 19 U/L Normal 7-38 [facility] Comment on above: Order Comment: Speci men Type: BLOOD SPECIMENOrdering Facility: [facility] Address: [address] [place] [address] Performed By: #### 2 4331-1, 97633-6 ####[facility] LABCLIA [id number] [place] [address] [place] Anion gap [Moles/Vol] 10 mmol/L Normal 8-15 [facility] Comment on above: Order Comment: Speci men Type: BLOOD SPECIMENOrdering Facility: [facility] Address: [address] [place], [place] [address] Performed By: #### 2 4331-1, 48684-7 ####[facility] LABIA [id number] [address] [address] [place] AST [Catalytic activity/Vol] 25 U/L Normal 13-35 [facility] Comment on above: Order Comment: Speci men Type: BLOOD SPECIMENOrdering Facility: [facility] Address: [address] [place] [address] Performed By: #### 2 4331-1, ####[facility] LABIA [id number] [place] [address] [place] Bilirubin [Mass/Vol] 0.6 mg/dL Normal 0.2-1.3 [facility] Comment on above: Order Comment: Speci men Type: BLOOD SPECIMENOrdering Facility: [facility] Address: [address] [place] [address] Performed By: #### 2 4331-, 81325-3 ####[facility] LABIA [id number] [place] [address] [place] Calcium [Mass/Vol] 8.9 mg/dL Normal 8.5-10.2 [facility] Comment on above: Order Comment: Speci men Type: BLOOD SPECIMENOrdering Facility: [facility] Address: [address] [place], [place] [address] Performed By: #### 2 4331-, ####[facility] LABIA [id number] [address] [address] [place] Chloride [Moles/Vol] 96 mmol/L Low 98-107 [facility] Comment on above: Order Comment: Speci men Type: BLOOD SPECIMENOrdering Facility: [facility] Address: [address] [place], [place] [address] Performed By: #### 2 4331-1, 90105-6 ####[facility] LABCLIA [id number] [address] [address] [place] CO2 [Moles/Vol] 26 mmol/L Normal 22-30 [facility] Comment on above: Order Comment: Speci men Type: BLOOD SPECIMENOrdering Facility: [facility] Address: [address] [place] [address] Performed By: #### 2 4331-1, 71127-3 ####[facility] LABIA [id number] [address] [address] [place] Creatinine [Mass/Vol] 0.98 mg/dL High 0.58-0.96 [facility] Comment on above: Order Comment: Speci men Type: BLOOD SPECIMENOrdering Facility: [facility] Address: [address] [place] [address] Performed By: #### 2 4331-1, 78468-6 ####[facility] [id number] [place] [id number] [place] Creatinine and Glomerular filtration rate.predicted panel (S/P/Bld) 57 mL/min/1.73m??? Low >=60 [facility] Comment on above: Order Comment: Speci men Type: BLOOD SPECIMENOrdering Facility: [facility] Address: [address] [place] [address] Result Comment: Merna mated Glomerular Filtration Rate [...] actual GFR. Performed By: #### 2 4331-1, 71247-2 ####[facility] LABIA [id number] [address] [address] [place] Glucose [Mass/Vol] 89 mg/dL Normal 74-99 [facility] Comment on above: Order Comment: Adelaida agudelo Type: BLOOD SPECIMENOrdering Facility: [facility] Address: [address] [place] [address] Result Comment: The [place] Diabetes Association (ADA) provides guidance for cutoff [...] Standards of Medical Care in Diabetes 2016, [place] Diabetes Association. Diabetes Care. 2016.39(Suppl 1). Performed By: #### 2 4331-1, 69934-0 ####[facility] LABCLIA [id number] [place] [address] [place] Potassium [Moles/Vol] 4.6 mmol/L Normal 3.7-5.1 [facility] Comment on above: Order Comment: Adelaida agudelo Type: BLOOD SPECIMENOrdering Facility: [facility] Address: [address] [place] [address] Performed By: #### 2 4331-, ####[facility] LABCLIA [id number] [place] [id number] [place] Protein [Mass/Vol] 6.3 g/dL Normal 6.3-8.0 [facility] Comment on above: Order Comment: Adelaida agudelo Type: BLOOD SPECIMENOrdering Facility: [facility] Address: [address] [place] [id number] Performed By: #### 2 4331-, ####[facility] LABCLIA [id number] [address] [address] [place] Sodium [Moles/Vol] 132 mmol/L Low 136-144 [facility] Comment on above: Order Comment: Speci men Type: BLOOD SPECIMENOrdering Facility: [facility] Address: [address] [place] [address] Performed By: #### 2 4331-1, 53901-8 ####[facility] LABCLIA [id number] [place] [address] [id number] [address] [place] Urea nitrogen [Mass/Vol] 20 mg/dL Normal 7-21 [facility] Comment on above: Order Comment: Speci men Type: BLOOD SPECIMENOrdering Facility: [facility] Address: [address] [place], [place] [address] Performed By: #### 2 4331-1, ####[facility] LABCLIA [id number] [facility] [id number] [address] [place] Lipid 1996 panelon 5 Cholesterol [Mass/Vol] 197 mg/dL Normal <200 [facility] Comment on above: Order Comment: Speci men Type: BLOOD SPECIMENOrdering Facility: [facility] Address: [address] [place] [address] Result Comment: <200 mg/dL, Desirable 200-239 mg/dL, Borderline high >239 mg/dL, High Performed By: #### 2 4331-1, ####[facility] LABCLIA [id number] [facility] [address] [place] [address] [place] Cholesterol in HDL [Mass/Vol] 88 mg/dL Normal >39 [facility] Comment on above: Order Comment: Speci men Type: BLOOD SPECIMENOrdering Facility: [facility] Address: [address] [place] [address] Result Comment: 40-5 9 mg/dL, Acceptable >59 mg/dL, High: Negative risk factor for coronary heart disease <40 mg/dL, Low: Positive risk factor for coronary heart disease Performed By: #### 2 4331-1, 40202-6 ####[facility] LABCLIA [id number] [place] [facility] [place] [facility] [address] [facility] Cholesterol in LDL [Mass/Vol] 94 mg/dL Normal <100 [facility] Comment on above: Order Comment: Speci men Type: BLOOD SPECIMENOrdering Facility: [facility] Address: [address] [place] [address] Result Comment: <100 mg/dL, Optimal 100-129 mg/dL, Near optimal/above optimal 130-159 mg/dL, Borderline high 160-189 mg/dL, High >189 mg/dL, Very high Secondary prevention optimal LDL Cholesterol levels are recommended to be <70 mg/dL LDL cholesterol is calculated using the Armando-NIH equation. Performed By: #### 2 4331-, 74911-1 ####[facility] LABIA [id number] [address] Cholesterol in LDL/Cholesterol in HDL [Mass ratio] 1.07 {ratio} Normal <2.54 [facility] Comment on above: Order Comment: Paulai men Type: BLOOD SPECIMENOrdering Facility: [facility] Address: [address] [place] [address] Result Comment: Refe reesece: 1. National Cholesterol Education Program ATP III Guideline At-A-Glance Quick Desk Reference: National Heart, Lung, and Blood [place]. National Institutes of Health. 2001: NIH Publication No. 01-3305. 2. An International Atherosclerosis Society position paper: global recommendations for the management of dyslipidemia: executive summary, Atherosclerosis. 2014: 232(2):410-413. Performed By: #### 2 4331-, 69277-9 ####[facility] LABCLIA [id number] [address] [place] Cholesterol in VLDL [Mass/Vol] 13 mg/dL Normal <30 [facility] Comment on above: Order Comment: Adelaida agudelo Type: BLOOD SPECIMENOrdering Facility: [facility] Address: [address] [place] [address] Performed By: #### 2 4331-1, 00494-2 ####[facility] LABCLIA [id number] [place] [address] [place] Cholesterol non HDL [Mass/Vol] 109 mg/dL Normal <130 [facility] Comment on above: Order Comment: Speci men Type: BLOOD SPECIMENOrdering Facility: [facility] Address: [address] [place] [address] Result Comment: <130 mg/dL, Optimal 130-159 mg/dL, Near optimal/above optimal 160-189 mg/dL, Borderline high 190-219 mg/dL, High >219 mg/dL, Very high Secondary prevention optimal non HDL Cholesterol levels are recommended to be <100 mg/dL Performed By: #### 2 4331-1, 40851-7 ####[facility] LABCLIA [id number] [address] [place] Cholesterol.total/Dania sterol in HDL [Mass ratio] 2.24 {ratio} Normal <5.10 [facility] Comment on above: Order Comment: Speci men Type: BLOOD SPECIMENOrdering Facility: [facility] Address: [address] [place] [address] Performed By: #### 2 4331-1, 94148-0 ####[facility] LABCLIA [id number] [address] [place] FASTING TIME 12 hrs Normal [facility] Comment on above: Order Comment: Speci men Type: BLOOD SPECIMENOrdering Facility: [facility] Address: [address] [place] [address] Performed By: #### 2 4331-1, 04514-1 ####[facility] LABCLIA [id number] [place] [id number] [place] Triglyceride [Mass/Vol] 83 mg/dL Normal <150 [facility] Comment on above: Order Comment: Speci men Type: BLOOD SPECIMENOrdering Facility: [facility] Address: [address] [place] [address] Result Comment: <150 mg/dL, Normal 150-199 mg/dL, Borderline high 200-499 mg/dL, High >499 mg/dL, Very high Performed By: #### 2 4331-1, 54023-6 ####[facility] LABCLIA [id number] ABBY MAHMOOD [address] [place] CNOVon 02-10-2025 CNOV Office Visit (INTMWS ) ROSANA MAKI ([id number]) 1940 F NFR Date Time Provider Department [...] which she attributes to physical therapy at [facility] and increased physical activity. She has been [...] two appointments with a sleep physician at [facility]. A recent sleep study revealed frequent arousals [...] She has an upcoming appointment with a knife operator in February and plans to discuss her [...] Pulse 6 (more content not included)... Normal [facility] Spine Thoracic (Routine)on 0 02-07-2025 Spine Thoracic (Routine) [facility] [address] [place] [address] Spine Thoracic (Routine) MR#: [id number] Acct: [id number] Name: ROSANA MAKI Rep #: [id number] : 1940 F 85 From: Dimitri Arceo MD PCP: Dr. Rochelle Hackett MD Status: REG CLI Study: Spine Thoracic (Routine) Date of Exam: Exam# [id number] Ordering Dr: Toribio Marcos MD PROCEDURE: SPINE [...] slight degree of ongoing microfracture. Reading Location: [facility] CC: Dr. Rochelle Hackett MD; Dr. Toribio Marcos MD Staff Design Engineer: Signed Normal [facility] PT D/C Summary (1)on 025 PT D/C Summary (1) [facility] [address] [place] [address] / REHABILITATION SERVICES DISCHARGE SUMMARY MR#: [id number] Acct: [id number] Name: ROSANA MAKI Rep #: [id number] : 1940 84 From: Richelle Nagy MPT Referring Dr.: Dr. Rochelle Hackett MD Status: REG RCR Insurance: MEDICARE PART A B [facility] INS Discharge Summary D/C summary: It has [...] please feel free to call me at [phone]. Thank you for the referral of this patient. Sincerely, Richelle Nagy, NEISHA Balance/Gait/Functional tests Balance/Special Test Scores Functional Gait Assessment Score: 20 % Disability: 33.3400 Lower Extremity Functional Score: 31 Improvement % Improvement: 40 12/28/24 9525 CC: Dr. Rochelle Hackett MD Signed Normal [facility] Neurology Visit Reporton Neurology Visit Report [facility] [address], [address] [place] [address] OFFICE VISIT Date of Service: 12/26/24 MR#: [id number] Acct: [id number] Name: ROSANA MAKI Rep #: [id number] : 1940 Provider: Dr. Erick seymour MD Age/Sex: 84/F Location: [facility]. Status: Signed [facility] Chief Complaint: Details: Interim History: Rosana returns [...] may cause QTc prolongation. 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 She has reduced her fluid intake and [...] in 2024 fludrocortisone was discontinued by her knife operator and midodrine 2.5 mg twice daily has [...] mid back pain. She is seeing a painter helper, Dr. Marcos, and is to have a [...] She had a head CT at the [facility] and [place]; results are presently not available. She takes [...] Periodic le (more content not included)... Normal [facility] Anion gap in Serum or Plasma Ordered By: Eagle Enciso on 12-20-2024 Anion gap [Moles/Vol] 11 mmol/L 5-15 [facility] BUN/creatinine ratioOrdered By: Eagle Enciso on 12-20-2024 Urea nitrogen/Creatinine [Mass ratio] 19.7 mg/mg 07-03 [facility] Basic Metabolic Profile (BMP )on 12-20-2024 BUN/CRE 19.7 RATIO Normal 07-03 [facility] Comment on above: Performed By: #### L 500.4050, L100.0100 #### [facility] [address] [place], [address] Calcium [Mass/Vol] 9.5 mg/dL Normal 7.6-11.0 [facility] Comment on above: Performed By: #### L 500.4050, L100.0100 #### [facility] [address] [place], [address] Chloride [Moles/Vol] 94 mmol/L Low 98-108 [facility] Comment on above: Performed By: #### L 500.4050, L100.0100 #### [facility] [address] [place], [address] CO2 [Moles/Vol] 23.4 mmol/L Normal 21.0-32.0 [facility] Comment on above: Performed By: #### L 500.4050, L100.0100 #### [facility] [address] [place], [address] Creatinine [Mass/Vol] 1.21 mg/dL High 0.70-1.20 [facility] Comment on above: Performed By: #### L 500.4050, L100.0100 #### [facility] [address] [place], [address] GAP 11 Normal 01-26 [facility] Comment on above: Performed By: #### L 500.4050, L100.0100 #### [facility] [address] [place], [address] GFR/1.73 sq M.predicted among non-blacks MDRD (S/P/Bld) [Vol rate/Area] 45 mL/min/{1.73_m2} Low >60 [facility] Comment on above: Result Comment: mL/m in/1.73m2 CKD-EPI Creatinine Equation (2020) Performed By: #### L 500.4050, L100.0100 #### [facility] [address] [place], [address] Glucose [Mass/Vol] 119 mg/dL High 70-99 [facility] Comment on above: Performed By: #### L 500.4050, L100.0100 #### [facility] [address] [place], [address] Potassium [Moles/Vol] 4.6 mmol/L Normal 3.3-5.1 [facility] Comment on above: Result Comment: Hemo lysis present, Results??could be affected. ?? Performed By: #### L 500.4050, L100.0100 #### [facility] [address] [place], [address] Sodium [Moles/Vol] 129 mmol/L Low 133-145 [facility] Comment on above: Performed By: #### L 500.4050, L100.0100 #### [facility] [address] [place], [address] Urea nitrogen [Mass/Vol] 24 mg/dL High 4-19 [facility] Comment on above: Performed By: #### L 500.4050, L100.0100 #### [facility] [address] [place], [address] Carbon dioxide, total [Moles /volume] in Central venous bloodOrdered By: Eagle Enciso on 12-20-2024 CO2 [Moles/Vol] 23.4 mmol/L 21.0-32.0 [facility] Chloride assayOrdered By: Jaleel Enciso on 12-20-2024 Chloride [Moles/Vol] 94 mmol/L Low 98-108 [facility] GFR/1.73 sq M.predicted pierce g non-blacks MDRD (S/P/Bld) [Vol rate/Area]Ordered By: Eagle Enciso on 12-20-2024 Estimated GFR (MDRD) Non-Af Amer 45 Low >60 [facility] Comment on above: mL/min/1.73m2 CKD-EP I Creatinine Equation (2020) Potassium (Unsp spec) [Mass/ Vol]Ordered By: Eagle Enciso on 12-20-2024 Potassium [Moles/Vol] 4.6 mmol/L 3.3-5.1 [facility] Comment on above: Hemolysis present, R esults could be affected. Serum creatinine measurement (mass/volume)Ordered By: Eagle Enciso on 12-20-2024 Creatinine [Mass/Vol] 1.21 mg/dL High 0.70-1.20 [facility] Serum glucose measurement (m ass/volume)Ordered By: Eagle Enciso on 12-20-2024 Glucose [Mass/Vol] 119 mg/dL High 70-99 [facility] Serum or plasma calcium glo urement (mass/volume)Ordered By: Eagle Enciso on 12-20-2024 Calcium [Mass/Vol] 9.5 mg/dL 7.6-11.0 [facility] Serum or plasma urea nitroge n measurement (mass/volume)Ordered By: Eagle Enciso on 12-20-2024 Urea nitrogen [Mass/Vol] 24 mg/dL High 4-19 [facility] Sodium levelOrdered By: Huy Enciso on 12-20-2024 Sodium [Moles/Vol] 129 mmol/L Low 133-145 [facility] Inital Evaluation (1) - PTon 11-15-2024 Inital Evaluation (1) - PT [facility] [address] [place] [address]. [address] [place] [address] / REHABILITATION SERVICES INITIAL EVALUATION MR#: [id number] Acct: [id number] Name: ROSANA MAKI Rep #: [id number] : 1940 84 From: Richelle DRIVER Referring Dr.: Dr. Rochelle Hackett MD Status: REG RCR Insurance: MEDICARE PART A B [facility] INS Patient's Visit Information Visit Information Visit [...] improve s (more content not included)... Normal [facility] CNOVon 11-08-2024 CN Office Visit (INTMWS ) ROSANA MAKI ([id number]) 1940 F NFR Date Time Provider Department [...] helps her. This was started by her knife operator Dr. Cooley No problem-specific Assessment AND Plan [...] meclizine ( (more content not included)... 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 Please review. Vida Urena November 07, 2024 [...] Asymptomatic Postmenopausal Status (Age-Related* 10/28/2012 Osteoarth NOS-L/Leg [HOV2766] Palpitations [R00.2] 02/23/2009 Osteoporosis [M81.0] 07/04/2009 03/13/2012 [...] Encounter Status:Closed by CRISTINA MUNSON on 11/07/24 [facility] Siobhan 11-03-2024 TIGRE Telephone (INTMWS) ROSANA MAKI ([id number]) 1940 F NFR Date Time Provider Department [...] a whole tablet. Thank you Al Nichole APRN.MEAT STOCK CLERK Allergies As of Date: 11/03/2024 Noted Allergy [...] Fully Assessed Reason for Visit: Patient Question [9272] Primary Visit Diagnosis:Fall, subsequent encounter [W19.XXXD] Other [...] Asymptomatic Postmenopausal Status (Age-Related* 10/28/2012 Osteoarth NOS-L/Leg [GVK1631] Palpitations [R00.2] 02/23/2009 Osteoporosis [M81.0] 07/04/2009 03/13/2012 [...] in partia (more content not included)... Normal [facility] Bacteria Ur Culton 5 Bacteria identified [...] , Intermediate >32 , Resistant >64 Abnormal [facility] Comment on above: Performed By: #### 6 30-4 ####[facility] LABCLIA [id number] [place] [address] [place] Basic metabolic 2000 panelon 11-02-2024 Anion gap [Moles/Vol] 7 mmol/L Low 8-15 [facility] Comment on above: Order Comment: Speci men Type: BLOOD SPECIMENOrdering Facility: [facility] Address: [address] [id number] Performed By: #### 2 4321-2 ####[facility] LABCLIA [id number] [place] [address] [place] Calcium [Mass/Vol] 8.5 mg/dL Normal 8.5-10.2 [facility] Comment on above: Order Comment: Speci men Type: BLOOD SPECIMENOrdering Facility: [facility] Address: [address] [place] [address] Performed By: #### 2 4321-2 ####[facility] [facility] LABCLIA [id number] [place] [address] [place] Chloride [Moles/Vol] 94 mmol/L Low 98-107 [facility] Comment on above: Order Comment: Speci men Type: BLOOD SPECIMENOrdering Facility: [facility] Address: [address] [place] [address] Performed By: #### 2 4321-2 ####[facility] LABCLIA [id number] [place] [address] [place] CO2 [Moles/Vol] 29 mmol/L Normal 22-30 [facility] Comment on above: Order Comment: Speci men Type: BLOOD SPECIMENOrdering Facility: [facility] Address: [address] [place], [place] [address] Performed By: #### 2 4321-2 ####[facility] LABCLIA [id number] [place] [id number] [place] Creatinine [Mass/Vol] 0.80 mg/dL Normal 0.58-0.96 [facility] Comment on above: Order Comment: Speci men Type: BLOOD SPECIMENOrdering Facility: [facility] Address: [address] [place], [place] [address] Performed By: #### 2 4321-2 ####[facility] LABCLIA [id number] [id number] [address] [place] Creatinine and Glomerular filtration rate.predicted panel (S/P/Bld) 74 mL/min/1.73m??? Normal >=60 [facility] Comment on above: Order Comment: Adelaida agudelo Type: BLOOD SPECIMENOrdering Facility: [facility] Address: [address] [place] [address] Result Comment: Merna mated Glomerular Filtration Rate [...] actual GFR. Performed By: #### 2 4321-2 ####[facility] LABCLIA [id number] [place] [address] [place] Glucose [Mass/Vol] 88 mg/dL Normal 74-99 [facility] Comment on above: Order Comment: Adelaida agudelo Type: BLOOD SPECIMENOrdering Facility: [facility] Address: [address] [place] [address] Result Comment: The [place] Diabetes Association (ADA) provides guidance for cutoff [...] Standards of Medical Care in Diabetes 2016, [place] [employer]. Diabetes Care. 2016.39(Suppl 1). Performed By: #### 2 4321-2 ####[facility] LABCLIA [id number] [place] [address] [place] Potassium [Moles/Vol] 3.8 mmol/L Normal 3.7-5.1 [facility] Comment on above: Order Comment: Speci men Type: BLOOD SPECIMENOrdering Facility: [facility] Address: [address] [place] [address] Performed By: #### 2 4321-2 ####[facility] LABCLIA [id number] [place] [id number] [place] Sodium [Moles/Vol] 130 mmol/L Low 136-144 [facility] Comment on above: Order Comment: Speci men Type: BLOOD SPECIMENOrdering Facility: [facility] Address: [address] [place] [address] Performed By: #### 2 4321-2 ####[facility] LABCLIA [id number] [place] [address] [place] Urea nitrogen [Mass/Vol] 17 mg/dL Normal 7-21 [facility] Comment on above: Order Comment: Speci men Type: BLOOD SPECIMENOrdering Facility: [facility] Address: [address] [place] [address] Performed By: #### 2 4321-2 ####[facility] LABIA [id number] [address] [place] CNOVon 11-02-2024 CNOV Office Visit (INTMWS ) ROSANA MAKI ([id number]) 1940 F NFR Date Time Provider Department 11/02/24 12:00 PM AL NICHOLE INTMWS During your visit today, we recorded the following information about you: Pulse Respiration Blood pressure Weight 60/minute 16/minute 128/70 54.4 kg Al Nichole APRN.MEAT STOCK CLERK 11/02/2024 3:40 PM Signed CC: Patient presents with: Recheck: [facility] ER follow up, fall back pain HPI Rosana Maki is a 84 year old female who presents today for ER follow-up. Facility: [facility] ER Date of visit: 10/30/24 Reason for [...] taking differentl (more content not included)... Normal [facility] Urinalysis complete panel (U )on 11-02-2024 BACTERIA UL >9821 High Negative [facility] Comment on above: Order Comment: Speci men Type: URINE SPECIMENOrdering Facility: [facility] Address: [address] [place] [address] Performed By: #### 2 4356-8 ####[facility] LABCLIA [id number] [place] [address] [place] Bilirubin Ql (U) Negative Normal Negative [facility] Comment on above: Order Comment: Speci men Type: URINE SPECIMENOrdering Facility: [facility] Address: [address] [place] [address] Performed By: #### 2 4356-8 ####[facility] LABCLIA [id number] [place] [address] [place] Clarity (Unsp spec) Cloudy Abnormal Clear [facility] Comment on above: Order Comment: Speci men Type: URINE SPECIMENOrdering Facility: [facility] Address: [address] [place] [address] Performed By: #### 2 4356-8 ####[facility] LABCLIA [id number] [place] [address] [place] Color (U) Dark Yellow Abnormal Yellow [facility] Comment on above: Order Comment: Speci men Type: URINE SPECIMENOrdering Facility: [facility] Address: [address] [place] [address] Performed By: #### 2 4356-8 ####[facility] LABCLIA [id number] [place] [address] [place] Epithelial cells LM.HPF (Urine sed) [#/Area] Few Normal [facility] Comment on above: Order Comment: Speci men Type: URINE SPECIMENOrdering Facility: [facility] Address: [address] [place] [address] Result Comment: Few Performed By: #### 2 4356-8 ####[facility] LABCLIA [id number] [place] [address] [place] Glucose Test strip (U) [Mass/Vol] Negative Normal Negative [facility] Comment on above: Order Comment: Speci men Type: URINE SPECIMENOrdering Facility: [facility] Address: [address] [place] [address] Performed By: #### 2 4356-8 ####[facility] LABCLIA [id number] [place] [address] [place] Hemoglobin Ql (U) 2+ Abnormal Negative [facility] Comment on above: Order Comment: Speci men Type: URINE SPECIMENOrdering Facility: [facility] Address: [address] [place] [address] Performed By: #### 2 4356-8 ####[facility] LABCLIA [id number] [place] [address] [place] Hyaline casts (Urine sed) [#/Area] 0 /[LPF] Normal 0 /LPF [facility] Comment on above: Order Comment: Speci men Type: URINE SPECIMENOrdering Facility: [facility] Address: [address] [place] [address] Performed By: #### 2 4356-8 ####[facility] LABCLIA [id number] [place] [address] [place] Ketones Ql (U) Trace Abnormal Negative [facility] Comment on above: Order Comment: Speci men Type: URINE SPECIMENOrdering Facility: [facility] Address: [address] [place] [address] Performed By: #### 2 4356-8 ####[facility] LABCLIA [id number] [place] [address] [place] Leukocyte esterase Test strip Ql (U) 2+ Abnormal Negative [facility] Comment on above: Order Comment: Speci men Type: URINE SPECIMENOrdering Facility: [facility] Address: [address] [place] [address] Performed By: #### 2 4356-8 ####[facility] LABCLIA [id number] [place] [address] [place] Nitrite Ql (U) Positive Abnormal Negative [facility] Comment on above: Order Comment: Speci men Type: URINE SPECIMENOrdering Facility: [facility] Address: [address] [place] [address] Performed By: #### 2 4356-8 ####[facility] LABCLIA [id number] [place] [address] [place] pH (U) 5.5 [pH] Normal <8.5 [facility] Comment on above: Order Comment: Speci men Type: URINE SPECIMENOrdering Facility: [facility] Address: [address] [place] [address] Performed By: #### 2 4356-8 ####[facility] LABCLIA [id number] [place] [address] [place] Protein (U) [Mass/Vol] 2+ Abnormal Negative [facility] Comment on above: Order Comment: Speci men Type: URINE SPECIMENOrdering Facility: [facility] Address: [address] [place] [address] Performed By: #### 2 4356-8 ####[facility] LABCLIA [id number] [place] [address] [place] RBC LM.HPF (Urine sed) [#/Area] /[HPF] Abnormal 0-2 /HPF [facility] Comment on above: Order Comment: Speci men Type: URINE SPECIMENOrdering Facility: [facility] Address: [address] [place] [address] Performed By: #### 2 4356-8 ####[facility] LABCLIA [id number] [place] [address] [place] Specific gravity (U) [Rel density] 1.029 Normal 1.005-1.03 0 [facility] Comment on above: Order Comment: Speci men Type: URINE SPECIMENOrdering Facility: [facility] Address: [address] [place] [address] Performed By: #### 2 4356-8 ####[facility] [id number] [place] [address] [place] Urobilinogen Ql (U) 0.2 EU/dL Normal 0.2-1.0 EU/dL [facility] Comment on above: Order Comment: Speci men Type: URINE SPECIMENOrdering Facility: [facility] Address: [address] [place] [address] Performed By: #### 2 4356-8 ####[facility] [id number] [place] [address] [place] WBC LM.HPF (Urine sed) [#/Area] /[HPF] Abnormal 0-5 /HPF [facility] Comment on above: Order Comment: Speci men Type: URINE SPECIMENOrdering Facility: [facility] Address: [address] [place] [address] Performed By: #### 2 4356-8 ####[facility] [id number] [place] [address] [place] XR LUMBAR 3V [...] L1 compression deformity 3. Mild degenerative changes Staff Design Engineer: PSYCHIATRIC Transcribe Date/Time: Nov 05 2024 11:05A Dictated by : BRIANDA OROPEZA MD This examination was interpreted and the report reviewed and electronically signed by: BRIANDA OROPEZA MD on Nov 05 2024 11:08AM EST [id number] Normal [facility] XR THORACIC 3V AP/LAT/SWIMME RSon 11-02-2024 [...] L1 compression deformity 3. Mild degenerative changes Staff Design Engineer: BO Transcribe Date/Time: Nov 05 2024 11:05A Dictated by : BRIANDA OROPEZA MD This examination was interpreted and the report reviewed and electronically signed by: BRIANDA OROPEZA MD on Nov 05 2024 11:08AM EST [id number] Normal [facility] Absolute neutrophil countOrd ered By: Tejinder Mora on 10-30-2024 Neutrophils (Bld) [#/Vol] 2.9 10*3/uL 2.0-7.7 [facility] Albumin to globulin ratioOrd ered By: Tejinderpuja Mora on 10-30-2024 Albumin/Globulin [Mass ratio] 0.9 {ratio} 0.9-2.4 [facility] Basophil percentageOrdered B y: Tejinder Mora on 10-30-2024 Basophils/100 WBC (Bld) 0.4 % 0-1 [facility] Bilirubin Test strip Ql (U)O rdered By: Tejinderpuja Mora on 10-30-2024 Bilirubin Ql (U) Negative Negative [facility] Bilirubin, totalOrdered By: Tejinderpuja Mora on 10-30-2024 Bilirubin [Mass/Vol] 1.00 mg/dL 0.20-1.00 [facility] Comment on above: For patients on eltr ombopag therapy, use of Dimension [place] TBIL is not recommended. Blood urea nitrogen (BUN)/cr eatinine ratioOrdered By: Tejinderpuja Mora on 10-30-2024 Urea nitrogen/Creatinine [Mass ratio] 14.4 mg/mg 10-20 [facility] Brain/Head without Contrasto n 10-30-2024 Brain/Head without Contrast [facility] [address] [place] [address] Brain/Head without Contrast MR#: [id number] Acct: [id number] Name: ROSANA MAKI Rep #: [id number] : 1940 F 84 From: Carol Jordan MD PCP: Dr. Rochelle Hackett MD Status: PRE ER Study: Brain/Head without Contrast Date of Exam: 10/15 03/08 Exam# [id number] Ordering Dr: Tejinder Mora MD EXAM: BRAIN/HEAD [...] chronic deep white matter disease. Reading Location: [facility] CC: Dr. Rochelle Hackett MD; Dr. Tejinder Mora MD Staff Design Engineer: Signed Normal [facility] CBC W/Diff, Automatedon 10-15 Absolute Lymph 1.55 X10 3/uL Normal 0.83-4.51 [facility] Comment on above: Performed By: #### L 500.4050, L503.6005, L100.0100 #### [facility] [address] [place], [address] Absolute Neut 2.9 X10 3/uL Normal 2.0-7.7 [facility] Comment on above: Performed By: #### L 500.4050, L503.6005, L100.0100 #### [facility] [address] [place], [address] Basophils/100 WBC (Bld) 0.4 % Normal 0-1 [facility] Comment on above: Performed By: #### L 500.4050, L503.6005, L100.0100 #### [facility] [address] [place], [address] Eosinophils/100 WBC (Bld) 0.4 % Normal 0-5 [facility] Comment on above: Performed By: #### L 500.4050, L503.6005, L100.0100 #### [facility] [address] [place], [address] Erythrocyte distribution width (RBC) [Ratio] 12.8 % Normal 11.6-14.6 [facility] Comment on above: Performed By: #### L 500.4050, L503.6005, L100.0100 #### [facility] [address] [place], [address] Hematocrit (Bld) [Volume fraction] 37.2 % Normal 37-47 [facility] Comment on above: Performed By: #### L 500.4050, L503.6005, L100.0100 #### [facility] [address] [place], [address] Hemoglobin (Bld) [Mass/Vol] 13.3 g/dL Normal 12.0-15.0 [facility] Comment on above: Performed By: #### L 500.4050, L503.6005, L100.0100 #### [facility] [address] [place], [address] IG% 0.600 Normal 0.0-0.9 [facility] Comment on above: Result Comment: IG% - Immature Granulocytes (promyelocytes, myelocytes and metamyelocytes) > 1% indicates that a LEFT SHIFT is Present. Performed By: #### L 500.4050, L503.6005, L100.0100 #### [facility] [address] [place], [address] Lymphocytes/100 WBC (Bld) 29.5 % Normal 19-41 [facility] Comment on above: Performed By: #### L 500.4050, L503.6005, L100.0100 #### [facility] [address] [place], [address] MCH (RBC) [Entitic mass] 32.7 pg High 27.0-32.0 [facility] Comment on above: Performed By: #### L 500.4050, L503.6005, L100.0100 #### [facility] [address] [place], [address] MCHC (RBC) [Mass/Vol] 35.8 g/dL Normal 32-36 [facility] Comment on above: Performed By: #### L 500.4050, L503.6005, L100.0100 #### [facility] [address] [place], [address] MCV (RBC) [Entitic vol] 91.4 fL Normal 81-99 [facility] Comment on above: Performed By: #### L 500.4050, L503.6005, L100.0100 #### [facility] [address] [place], [address] Monocytes/100 WBC (Bld) 13.7 % High 0-10 [facility] Comment on above: Performed By: #### L 500.4050, L503.6005, L100.0100 #### [facility] [address] [place], [address] Neutrophils/100 WBC (Bld) 55.4 % Normal 47-70 [facility] Comment on above: Performed By: #### L 500.4050, L503.6005, L100.0100 #### [facility] [address] [place], [address] Nucleated RBC (Bld) [#/Vol] 0 10*3/uL Normal 0-5 [facility] Comment on above: Performed By: #### L 500.4050, L503.6005, L100.0100 #### [facility] [address] [place], [address] Platelet mean volume (Bld) [Entitic vol] 9.5 fL Normal 6.2-12.0 [facility] Comment on above: Performed By: #### L 500.4050, L503.6005, L100.0100 #### [facility] [address] [place], [address] Platelets (Bld) [#/Vol] 256 10*3/uL Normal 150-450 [facility] Comment on above: Performed By: #### L 500.4050, L503.6005, L100.0100 #### [facility] [address] [place], [address] RBC (Bld) [#/Vol] 4.07 10*6/uL Low 4.2-5.4 [facility] Comment on above: Performed By: #### L 500.4050, L503.6005, L100.0100 #### [facility] [address] [place], [address] RDW SD 42.8 fl Normal 35.1-43.9 [facility] Comment on above: Performed By: #### L 500.4050, L503.6005, L100.0100 #### [facility] [address] [place], [address] WBC (Bld) [#/Vol] 5.3 10*3/uL Normal 4.4-11.0 [facility] Comment on above: Performed By: #### L 500.4050, L503.6005, L100.0100 #### [facility] [address] [place], [address] Carbon dioxide measurementOr dered By: Tejinder Mora on 10-30-2024 CO2 [Moles/Vol] 27.0 mmol/L 21.0-32.0 [facility] Chloride measurementOrdered By: Tejinder Mora on 10-30-2024 Chloride [Moles/Vol] 91 mmol/L Low 98-107 [facility] Comprehensive Metabolic Prof ilon 10-30-2024 Albumin [Mass/Vol] 3.3 g/dL Normal 3.2-5.0 [facility] Comment on above: Performed By: #### L 500.4050, L503.6005, L100.0100 #### [facility] [address] [place], [address] Albumin/Globulin [Mass ratio] 0.9 {ratio} Normal 0.9-2.4 [facility] Comment on above: Performed By: #### L 500.4050, L503.6005, L100.0100 #### [facility] [address] [place], [address] ALK P 95 U/L Normal 45-117 [facility] Comment on above: Performed By: #### L 500.4050, L503.6005, L100.0100 #### [facility] [address] [place], [address] ALT [Catalytic activity/Vol] 29 U/L Normal 13-56 [facility] Comment on above: Performed By: #### L 500.4050, L503.6005, L100.0100 #### [facility] [address] [place], [address] AST [Catalytic activity/Vol] 29 U/L Normal 15-37 [facility] Comment on above: Performed By: #### L 500.4050, L503.6005, L100.0100 #### [facility] [address] [place], [address] Bilirubin [Mass/Vol] 1.00 mg/dL Normal 0.20-1.00 [facility] Comment on above: Result Comment: For patients on eltrombopag therapy, use of Dimension [place] TBIL is not recommended. Performed By: #### L 500.4050, L503.6005, L100.0100 #### [facility] [address] [place], [address] BUN/CRE 14.4 RATIO Normal 10-20 [facility] Comment on above: Performed By: #### L 500.4050, L503.6005, L100.0100 #### [facility] [address] [place], [address] CA,Total 8.7 mg/dL Normal 8.5-10.1 [facility] Comment on above: Performed By: #### L 500.4050, L503.6005, L100.0100 #### [facility] [address] [place], [address] Chloride [Moles/Vol] 91 mmol/L Low 98-107 [facility] Comment on above: Performed By: #### L 500.4050, L503.6005, L100.0100 #### [facility] [address] [place], [address] CO2 [Moles/Vol] 27.0 mmol/L Normal 21.0-32.0 [facility] Comment on above: Performed By: #### L 500.4050, L503.6005, L100.0100 #### [facility] [address] [place], [address] Creatinine [Mass/Vol] 1.11 mg/dL High 0.55-1.02 [facility] Comment on above: Result Comment: The validity of the calculated GFR GFRAA in patients over 70 years has not been determined. Clinical correlation is essential. Performed By: #### L 500.4050, L503.6005, L100.0100 #### [facility] [address] [place], [address] ECRCL 35.10 ml/min Normal [facility] Comment on above: Performed By: #### L 500.4050, L503.6005, L100.0100 #### [facility] [address] [place], [address] EST GFR - AA 60 mL/min Normal >60 [facility] Comment on above: Result Comment: Afri can [place] GFR Calc Performed By: #### L 500.4050, L503.6005, L100.0100 #### [facility] [address] [place], [address] GAP 10 Normal 5-15 [facility] Comment on above: Performed By: #### L 500.4050, L503.6005, L100.0100 #### [facility] [address] [place], [address] GFR/1.73 sq M.predicted among non-blacks MDRD (S/P/Bld) [Vol rate/Area] 50 mL/min/{1.73_m2} Low >60 [facility] Comment on above: Result Comment: Non- GFR Calc Performed By: #### L 500.4050, L503.6005, L100.0100 #### [facility] [address] [place], [address] Globulin (S) [Mass/Vol] 3.5 g/dL Normal 2.2-4.2 [facility] Comment on above: Performed By: #### L 500.4050, L503.6005, L100.0100 #### [facility] [address] [place], [address] Glucose [Mass/Vol] 120 mg/dL High 74-106 [facility] Comment on above: Result Comment: Fast ing Glucose result from 100 to 125 mg/dL suggests IMPAIRED HOMEOSTASIS per A.D.A. criteria. Performed By: #### L 500.4050, L503.6005, L100.0100 #### [facility] [address] [place], [address] Potassium [Moles/Vol] 3.3 mmol/L Low 3.5-5.1 [facility] Comment on above: Performed By: #### L 500.4050, L503.6005, L100.0100 #### [facility] [address] [place], [address] Sodium [Moles/Vol] 127 mmol/L Low 136-145 [facility] Comment on above: Performed By: #### L 500.4050, L503.6005, L100.0100 #### [facility] [address] [place], [address] T PROT 6.8 g/dL Normal 6.4-8.2 [facility] Comment on above: Performed By: #### L 500.4050, L503.6005, L100.0100 #### [facility] [address] [place], [address] Urea nitrogen [Mass/Vol] 16 mg/dL Normal 7-18 [facility] Comment on above: Performed By: #### L 500.4050, L503.6005, L100.0100 #### [facility] [address] [place], [address] Emergency Department Summary on 10-30-2024 Emergency Department Summary [facility] Medical Records Department [address] [place] [address] Emergency Department Summary 10/30/24 MR#: [id number] Acct: [id number] Name: ROSANA MAKI Rep #: [id number] : 1940 84 From: Tejinder Mora MD [...] Uterine cancer (more content not included)... Normal [facility] Eosinophil percentageOrdered By: Tejinder Mora on 10-30-2024 Eosinophils/100 WBC (Bld) 0.4 % 0-5 [facility] Epithelial cells.squamous LM Ql (Urine sed)Ordered By: Tejinder Mora on 10-30-2024 Epithelial cells.squamous LM.HPF (Urine sed) [#/Area] 0 /[HPF] 5-10 [facility] Erythrocyte distribution wid th (RBC) [Ratio]Ordered By: Tejinder Mora on 10-30-2024 Erythrocyte distribution width (RBC) [Entitic vol] 42.8 fL 35.1-43.9 [facility] Erythrocyte distribution wid th ratioOrdered By: Tejinderpuja Mora on 10-30-2024 Erythrocyte distribution width (RBC) [Ratio] 12.8 % 11.6-14.6 [facility] Estimated glomerular filtrat ion rate (GFR) AmericanOrdered By: Tejinder Mora on 10-30-2024 Estimated GFR (MDRD) Amer 60 mL/min >60 [facility] Comment on above: GFR Calc Estimation of creatinine khushboo aranceOrdered By: Tejinder Mora on 10-30-2024 Estimated Creatinine Clearance Calc 35.10 ml/min [facility] Fine Granular Casts LM.LPF ( Urine sed) [#/Area]Ordered By: Tejinder Mora on 10-30-2024 Urine Fine Granular Casts 0-5 SEEN /lpf 0-5 [facility] Glomerular filtration rate ( GFR) estimationOrdered By: Tejinder Mora on 10-30-2024 Estimated GFR (MDRD) Non-Af Amer 50 mL/min Low >60 [facility] Comment on above: Non- GFR Calc Glucose Ql (U)Ordered By: Vero Mora on 10-30-2024 Urine Glucose (UA) Normal mg/dl Normal [facility] Glucose measurementOrdered B y: Tejinder Mora on 10-30-2024 Glucose [Mass/Vol] 120 mg/dL High 74-106 [facility] Comment on above: Fasting Glucose resu lt from 100 to 125 mg/dL suggests IMPAIRED HOMEOSTASIS per A.D.A. criteria. Hematocrit Auto (Bld) [Volum e fraction]Ordered By: Tejinder Mora on 10-30-2024 Hematocrit (Bld) [Volume fraction] 37.2 % 37-47 [facility] Hemoglobin measurementOrdere d By: Tejinder Mora on 10-30-2024 Hemoglobin (Bld) [Mass/Vol] 13.3 g/dL 12.0-15.0 [facility] Hyaline casts LM.LPF (Urine sed) [#/Area]Ordered By: Tejinder Mora on 10-30-2024 Hyaline casts LM Ql (Urine sed) 5-10 SEEN /lpf 0-5 [facility] Immature granulocytes/100 WB C Auto (Bld)Ordered By: Tejinderpuja Mora on 10-30-2024 Immature granulocytes/100 WBC (Bld) 0.600 % 0.0-0.9 [facility] Comment on above: IG% - Immature Granu locytes (promyelocytes, myelocytes and metamyelocytes) > 1% indicates that a LEFT SHIFT is Present. Ketones Test strip Ql (U)Ord ered By: Tejindre Mora on 10-30-2024 Ketones Ql (U) 15 mg/dl High Negative [facility] - Chemistry and C hemistry - challengeOrdered By: Tejinderpuja Mora on 10-30-2024 AST [Catalytic activity/Vol] 29 U/L 15-37 [facility] Lactic Acidon 10-30-2024 Lactate [Moles/Vol] 2.0 mmol/L Normal 0.4-1.9 [facility] Comment on above: Order Comment: Y Result Comment: Crit ical Result(s) Called at: 20:50:47 10/30/2024 by: Caitie Nayak to LSparr. Results read back by same. Performed By: #### L 500.4050, L503.6005, L100.0100 #### [facility] [address] [place], [place], [id number] Lactic acid measurementOrder ed By: Tejinder Mora on 10-30-2024 Lactate [Moles/Vol] 2.0 mmol/L 0.4-2.0 [facility] Comment on above: Critical Result(s) C alled at: 20:50:47 10/30/2024 by: Caitie Nayak to LSparr. Results read back by same. Lymphocytes Auto (Unsp spec) [#/Vol]Ordered By: Tejinder Mora on 10-30-2024 Lymphocytes (Bld) [#/Vol] 1.55 10*3/uL 0.83-4.51 [facility] Lymphocytes/100 WBC Auto (Un sp spec)Ordered By: Tejinder Mora on 10-30-2024 Lymphocytes/100 WBC (Bld) 29.5 % 19-41 [facility] MCV (mean corpuscular volume ) determinationOrdered By: Tejinder Mora on 10-30-2024 MCV (RBC) [Entitic vol] 91.4 fL 81-99 [facility] Mean corpuscular hemoglobin (MCH) determinationOrdered By: Tejinder Mora on 10-30-2024 MCH (RBC) [Entitic mass] 32.7 pg High 27.0-32.0 [facility] Mean corpuscular hemoglobin concentration (MCHC) determinationOrdered By: Tejinder Mora on 10-30-2024 MCHC (RBC) [Mass/Vol] 35.8 g/dL 32-36 [facility] Mean platelet volume determi nationOrdered By: Tejinderpuja Mora on 10-30-2024 Platelet mean volume (Bld) [Entitic vol] 9.5 fL 6.2-12.0 [facility] Microscopic analysis of urin e for red blood cells (RBC)Ordered By: Tejinder Mora on 10-30-2024 Urine RBC 0-5 SEEN /hpf 0-5 [facility] Monocyte percentageOrdered B y: Tejinder Mora on 10-30-2024 Monocytes/100 WBC (Bld) 13.7 % High 0-10 [facility] Mucus LM Ql (Urine sed)Order ed By: Tejinder Mora on 10-30-2024 Mucus Ql (Urine sed) 1+ /hpf [facility] Neutrophil percentageOrdered By: Tejinder Mora on 10-30-2024 Neutrophils/100 WBC (Bld) 55.4 % 47-70 [facility] Nitrite Test strip Ql (U)Ord ered By: Tejinder Mora on 10-30-2024 Nitrite Ql (U) Negative Negative [facility] Nucleated red blood cell per centageOrdered By: Tejinder Mora on 10-30-2024 Nucleated RBC/100 WBC (Bld) [Ratio] 0 % 0-5 [facility] Platelet countOrdered By: Vero Mora on 10-30-2024 Platelets (Bld) [#/Vol] 256 10*3/uL 150-450 [facility] Potassium measurementOrdered By: Tejinder Mora on 10-30-2024 Potassium [Moles/Vol] 3.3 mmol/L Low 3.5-5.1 [facility] Protein Test strip Ql (U)Ord ered By: Tejinder Mora on 10-30-2024 Protein Ql (U) 30 mg/dl High Negative [facility] RBC Auto (Bld) [#/Vol]Ordere d By: Tejinder Mora on 10-30-2024 RBC (Bld) [#/Vol] 4.07 10*6/uL Low 4.2-5.4 [facility] Serum anion gap measurementO rdered By: Tejinder Mora on 10-30-2024 Anion gap [Moles/Vol] 10 mmol/L 5-15 [facility] Serum globulin measurementOr dered By: Tejinder Mora on 10-30-2024 Globulin (S) [Mass/Vol] 3.5 g/dL 2.2-4.2 [facility] Serum or plasma alanine khan otransferase (ALT) measurementOrdered By: Tejinder Mora on 10-30-2024 ALT [Catalytic activity/Vol] 29 U/L 13-56 [facility] Serum or plasma albumin glo urement (mass/volume)Ordered By: Tejinder Mora on 10-30-2024 Albumin [Mass/Vol] 3.3 g/dL 3.2-5.0 [facility] Serum or plasma alkaline lourdes sphatase measurementOrdered By: Tejinder Mora on 10-30-2024 ALP [Catalytic activity/Vol] 95 U/L 45-117 [facility] Serum or plasma calcium glo urement (mass/volume)Ordered By: Tejinder Mora on 10-30-2024 Calcium [Mass/Vol] 8.7 mg/dL 8.5-10.1 [facility] Serum or plasma creatinine m easurement (mass/volume)Ordered By: [facility] on 10-30-2024 Creatinine [Mass/Vol] 1.11 mg/dL High 0.55-1.02 [facility] Comment on above: The validity of the calculated GFR & GFRAA in patients over 70 years has not been determined. Clinical correlation is essential. Serum or plasma urea nitroge n measurement (mass/volume)Ordered By: [facility] on 10-30-2024 Urea nitrogen [Mass/Vol] 16 mg/dL 7-18 [facility] Sodium levelOrdered By: [facility] on 10-30-2024 Sodium [Moles/Vol] 127 mmol/L Low 136-145 [facility] Total proteinOrdered By: [facility] on 10-30-2024 Protein [Mass/Vol] 6.8 g/dL 6.4-8.2 [facility] Urinalysis, Completeon 10-30 CAST,FINE GRAN 0-5 SEEN Normal 0-5 [facility] Comment on above: Order Comment: JULIÁN TER SPECIMEN Performed By: #### L 500.2500 #### [facility] [address] [place], [address] CAST,HYALINE 5-10 SEEN Normal 0-5 [facility] Comment on above: Order Comment: JULIÁN TER SPECIMEN Performed By: #### L 500.2500 #### [facility] [address] [place], [address] Mucus Ql (Urine sed) 1+ /hpf Normal [facility] Comment on above: Order Comment: JULIÁN TER SPECIMEN Performed By: #### L 500.2500 #### [facility] [address] [place], [address] RBC 0-5 SEEN Normal 0-5 [facility] Comment on above: Order Comment: JULIÁN TER SPECIMEN Performed By: #### L 500.2500 #### [facility] [address] [place], [address] WBC 10-25 SEEN Normal 0-5 [facility] Comment on above: Order Comment: JULIÁN TER SPECIMEN Performed By: #### L 500.2500 #### [facility] [address] [place], [place], [id number] BACTERIA 0 SEEN Normal None Seen [facility] Comment on above: Order Comment: JULIÁN TER SPECIMEN Performed By: #### L 500.2500 #### [facility] [address] [place], [place], [address] EPI,SQUAMOUS 0 SEEN Normal 5-10 [facility] Comment on above: Order Comment: JULIÁN TER SPECIMEN Performed By: #### L 500.2500 #### [facility] [address] [place], [place], [address] Urine blood detectionOrdered By: Tejinder Mora on 10-30-2024 Urine Occult Blood 50 /ul High Negative [facility] Urine clarityOrdered By: Tejinder Mora on 10-30-2024 Clarity (U) Sl. Cloudy Clear [facility] Urine color determinationOrd ered By: Tejinder Mora on 10-30-2024 Color (U) Yellow Yellow [facility] Urine leukocyte esterase det ection by dipstickOrdered By: Tejinder Mora on 10-30-2024 Leukocyte esterase Test strip Ql (U) 500 /ul High Negative [facility] Urine pHOrdered By: Tejinder daley on 10-30-2024 pH (U) 7.0 [pH] 5.0 - 8.0 [facility] Urine sediment bacteria coun t by microscopy (number/high power field)Ordered By: Tejinder Mora on 10-30-2024 Bacteria LM.HPF (Urine sed) [#/Area] 0 /[HPF] None Seen [facility] Urine specific gravity measu rementOrdered By: Tejinder Mora on 10-30-2024 Specific gravity (U) [Rel density] 1.010 1.002-1.03 0 [facility] Urobilinogen Ql (U)Ordered B y: Tejinder Mora on 10-30-2024 Urine Urobilinogen Normal mg/dl Normal [facility] White blood cell (WBC) count Ordered By: Tejinder Mora on 10-30-2024 WBC (Bld) [#/Vol] 5.3 10*3/uL 4.4-11.0 [facility] White blood cell countOrdere d By: Tejinder Mora on 10-30-2024 Urine WBC 10-25 SEEN /hpf 0-5 [facility] Basic Metabolic Profile (BMP )on 09-20-2024 BUN/CRE 21.7 RATIO High 10-20 [facility] Comment on above: Performed By: #### L 500.2500 #### [facility] [address] [place], [address] CA,Total 8.6 mg/dL Normal 8.5-10.1 [facility] Comment on above: Performed By: #### L 500.2500 #### [facility] [address] [place], [address] Chloride [Moles/Vol] 100 mmol/L Normal 98-107 [facility] Comment on above: Performed By: #### L 500.2500 #### [facility] [address] [place], [address] CO2 [Moles/Vol] 29.0 mmol/L Normal 21.0-32.0 [facility] Comment on above: Performed By: #### L 500.2500 #### [facility] [address] [place], [address] Creatinine [Mass/Vol] 0.97 mg/dL Normal 0.55-1.02 [facility] Comment on above: Result Comment: The validity of the calculated GFR GFRAA in patients over 70 years has not been determined. Clinical correlation is essential. Performed By: #### L 500.2500 #### [facility] [address] [place], [address] ECRCL 38.26 ml/min Normal [facility] Comment on above: Performed By: #### L 500.2500 #### [facility] [address] [place], [address] EST GFR - AA 71 mL/min Normal >60 [facility] Comment on above: Result Comment: Afri can Guamanian GFR Calc Performed By: #### L 500.2500 #### [facility] [address] [place], [address] GAP 4 Low 5-15 [facility] Comment on above: Performed By: #### L 500.2500 #### [facility] [address] [place], [address] GFR/1.73 sq M.predicted among non-blacks MDRD (S/P/Bld) [Vol rate/Area] 59 mL/min/{1.73_m2} Low >60 [facility] Comment on above: Result Comment: Non- GFR Calc Performed By: #### L 500.2500 #### [facility] [address] [place], [address] Glucose [Mass/Vol] 119 mg/dL High 74-106 [facility] Comment on above: Result Comment: Fast ing Glucose result from 100 to 125 mg/dL suggests IMPAIRED HOMEOSTASIS per A.D.A. criteria. Performed By: #### L 500.2500 #### [facility] [address] [place], [address] Potassium [Moles/Vol] 4.3 mmol/L Normal 3.5-5.1 [facility] Comment on above: Performed By: #### L 500.2500 #### [facility] [address] [place], [address] Sodium [Moles/Vol] 132 mmol/L Low 136-145 [facility] Comment on above: Performed By: #### L 500.2500 #### [facility] [address] [place], [address] Urea nitrogen [Mass/Vol] 21 mg/dL High 7-18 [facility] Comment on above: Performed By: #### L 500.2500 #### [facility] [address] [place], [address] Blood urea nitrogen (BUN)/cr eatinine ratioOrdered By: Larissa Nguyễn on 09-20-2024 Urea nitrogen/Creatinine [Mass ratio] 21.7 mg/mg High 10-20 [facility] Carbon dioxide measurementOr dered By: Larissa Nguyễn on 09-20-2024 CO2 [Moles/Vol] 29.0 mmol/L 21.0-32.0 [facility] Chloride measurementOrdered By: Larissa Nguyễn on 09-20-2024 Chloride [Moles/Vol] 100 mmol/L 98-107 [facility] Estimated glomerular filtrat ion rate (GFR) AmericanOrdered By: Larissa Nguyễn on 09-20-2024 Estimated GFR (MDRD) Amer 71 mL/min >60 [facility] Comment on above: GFR Calc Estimation of creatinine khushboo aranceOrdered By: Larissa Nguyễn on 09-20-2024 Estimated Creatinine Clearance Calc 38.26 ml/min [facility] Glomerular filtration rate ( GFR) estimationOrdered By: Larissa Nguyễn on 09-20-2024 Estimated GFR (MDRD) Non-Af Amer 59 mL/min Low >60 [facility] Comment on above: Non- GFR Calc Glucose measurementOrdered B y: Larissa Nguyễn on 09-20-2024 Glucose [Mass/Vol] 119 mg/dL High 74-106 [facility] Comment on above: Fasting Glucose resu lt from 100 to 125 mg/dL suggests IMPAIRED HOMEOSTASIS per A.D.A. criteria. Potassium measurementOrdered By: Larissa Nguyễn on 09-20-2024 Potassium [Moles/Vol] 4.3 mmol/L 3.5-5.1 [facility] Serum anion gap measurementO rdered By: Larissa Nguyễn on 09-20-2024 Anion gap [Moles/Vol] 4 mmol/L Low 5-15 [facility] Serum or plasma calcium glo urement (mass/volume)Ordered By: Larissa Nguyễn on 09-20-2024 Calcium [Mass/Vol] 8.6 mg/dL 8.5-10.1 [facility] Serum or plasma creatinine m easurement (mass/volume)Ordered By: Larissa Nguyễn on 09-20-2024 Creatinine [Mass/Vol] 0.97 mg/dL 0.55-1.02 [facility] Comment on above: The validity of the calculated GFR & GFRAA in patients over 70 years has not been determined. Clinical correlation is essential. Serum or plasma urea nitroge n measurement (mass/volume)Ordered By: Larissa Nguyễn on 09-20-2024 Urea nitrogen [Mass/Vol] 21 mg/dL High - [facility] Sodium levelOrdered By: Louise Nguyễn on 09-20-2024 Sodium [Moles/Vol] 132 mmol/L Low 136-145 [facility] Basic Metabolic Profile (BMP )on 09-19-2024 BUN Normal - [facility] Comment on above: Result Comment: NOT SCHEDULED FOR TODAY BUT TOMORROW 09/20/24 PER CM NURSE Performed By: #### L 500.2500 #### [facility] [address] [place], [address] BUN/CRE Normal 10-20 [facility] Comment on above: Result Comment: NOT SCHEDULED FOR TODAY BUT TOMORROW 09/20/24 PER CM NURSE Performed By: #### L 500.2500 #### [facility] [address] [place], [address] CA,Total Normal 8.5-10.1 [facility] Comment on above: Result Comment: NOT SCHEDULED FOR TODAY BUT TOMORROW 09/20/24 PER CM NURSE Performed By: #### L 500.2500 #### [facility] [address] [place], [address] CL Normal 98-107 [facility] Comment on above: Result Comment: NOT SCHEDULED FOR TODAY BUT TOMORROW 09/20/24 PER CM NURSE Performed By: #### L 500.2500 #### [facility] [address] [place], [address] CO2 Normal 21.0-32.0 [facility] Comment on above: Result Comment: NOT SCHEDULED FOR TODAY BUT TOMORROW 09/20/24 PER CM NURSE Performed By: #### L 500.2500 #### [facility] [address] [place], [address] CREAT,SERUM Normal 0.55-1.02 [facility] Comment on above: Result Comment: NOT SCHEDULED FOR TODAY BUT TOMORROW 09/20/24 PER CM NURSE Performed By: #### L 500.2500 #### [facility] [address] [place], [address] EST GFR Normal >60 [facility] Comment on above: Result Comment: NOT SCHEDULED FOR TODAY BUT TOMORROW 09/20/24 PER CM NURSE Performed By: #### L 500.2500 #### [facility] [address] [place], [address] EST GFR - AA Normal >60 [facility] Comment on above: Result Comment: NOT SCHEDULED FOR TODAY BUT TOMORROW 09/20/24 PER CM NURSE Performed By: #### L 500.2500 #### [facility] [address] [place], [address] GAP Normal 5-15 [facility] Comment on above: Result Comment: NOT SCHEDULED FOR TODAY BUT TOMORROW 09/20/24 PER CM NURSE Performed By: #### L 500.2500 #### [facility] [address] [place], [address] GLU Normal 74-106 [facility] Comment on above: Result Comment: NOT SCHEDULED FOR TODAY BUT TOMORROW 09/20/24 PER CM NURSE Performed By: #### L 500.2500 #### [facility] [address] [place], [address] Potassium Normal 3.5-5.1 [facility] Comment on above: Result Comment: NOT SCHEDULED FOR TODAY BUT TOMORROW 09/20/24 PER CM NURSE Performed By: #### L 500.2500 #### [facility] [address] [place], [address] Basic Metabolic Profile (BMP) Normal 136-145 [facility] Comment on above: Result Comment: NOT SCHEDULED FOR TODAY BUT TOMORROW 09/20/24 PER CM NURSE Performed By: #### L 500.2500 #### [facility] [address] [place], [address] Basic Metabolic Profile (BMP )on 09-12-2024 BUN Normal 7-18 [facility] Comment on above: Result Comment: PER OM AND SHANDALE NURSE PT NOT COMING IN TODAY Performed By: #### L 500.2500 #### [facility] [address] [place], [address] BUN/CRE Normal 10-20 [facility] Comment on above: Result Comment: PER OM AND SHANDALE NURSE PT NOT COMING IN TODAY Performed By: #### L 500.2500 #### [facility] [address] [place], [address] CA,Total Normal 8.5-10.1 [facility] Comment on above: Result Comment: PER OM AND SHANDALE NURSE PT NOT COMING IN TODAY Performed By: #### L 500.2500 #### [facility] [address] [place], [address] CL Normal 98-107 [facility] Comment on above: Result Comment: PER OM AND SHANDALE NURSE PT NOT COMING IN TODAY Performed By: #### L 500.2500 #### [facility] [address] [place], [address] CO2 Normal 21.0-32.0 [facility] Comment on above: Result Comment: PER OM AND SHANDALE NURSE PT NOT COMING IN TODAY Performed By: #### L 500.2500 #### [facility] [address] [place], [address] CREAT,SERUM Normal 0.55-1.02 [facility] Comment on above: Result Comment: PER OM AND SHANDALE NURSE PT NOT COMING IN TODAY Performed By: #### L 500.2500 #### [facility] [address] [place], [address] EST GFR Normal >60 [facility] Comment on above: Result Comment: PER OM AND SHANDALE NURSE PT NOT COMING IN TODAY Performed By: #### L 500.2500 #### [facility] [address] [place], [address] EST GFR - AA Normal >60 [facility] Comment on above: Result Comment: PER OM AND SHANDALE NURSE PT NOT COMING IN TODAY Performed By: #### L 500.2500 #### [facility] [address] [place], [address] GAP Normal 5-15 [facility] Comment on above: Result Comment: PER OM AND SHANDALE NURSE PT NOT COMING IN TODAY Performed By: #### L 500.2500 #### [facility] [address] [place], [address] GLU Normal 74-106 [facility] Comment on above: Result Comment: PER OM AND SHANDALE NURSE PT NOT COMING IN TODAY Performed By: #### L 500.2500 #### [facility] [address] [place], [address] Potassium Normal 3.5-5.1 [facility] Comment on above: Result Comment: PER OM AND SHANDALE NURSE PT NOT COMING IN TODAY Performed By: #### L 500.2500 #### [facility] [address] [place], [address] Basic Metabolic Profile (BMP) Normal 136-145 [facility] Comment on above: Result Comment: PER OM AND SHANDALE NURSE PT NOT COMING IN TODAY Performed By: #### L 500.2500 #### [facility] [address] [place], [address] Cardiology Visit Reporton Cardiology Visit Report [facility] [address] [place] [address] OFFICE VISIT Date of Service: 09/09/24 MR#: [id number] Acct: [id number] Name: ROSANA MAKI Rep #: [id number] : 1940 Provider: Dr. Brian Cooley MD Age/Sex: 84/F Location[place] [facility] Status: Signed HPI HPI History of Present Illness Details: ROSANA MAKI, is a 84F who presents to the office today for a follow-up visit. She has a history of paroxysmal atrial for ablation status post ablation mitral valve prolapse and intermittent palpitations. She is on a low dose beta elsa and dofetilide. She is here with her [id number]-rnz who is a physician. She continues to [...] measured by her daughter. She says the seafood preparer has told her how much fluid to [...] you fallen in the past year?: No [facility] Medical History Motion sickness Adrenal insufficiency History [...] History of esoph (more content not included)... [facility] 07-21-2024 [facility] Telephone (INTMWS) GARRETTROSANA Christiano ([id number]) 1940 F NFR Date Time Provider Department 07/21/24 ROCEHLLE HACKETT INTWS During your visit today, we [...] Sleep medicine order, TAYLOR, Facesheet, faxed to [facility] sleep center per patient request. 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 [address] [id number] ; PSG Study Report Name: ROSANA MAKI Date of Study: 07/13/2024 F#: [id number] Age: 84 (: 1940) ESS: 09/06 Neck [...] Florinef Sleep procedure: PSG 4 or more [facility] ([id number]) Procedure: The study was attended continuously by a apparatus engineering technologist. The monitored parameters included: left [...] criteria. Respiratory (more content not included)... Normal [facility] Neurology Visit Reporton Neurology Visit Report [facility] [address], [address] [place] [address] OFFICE VISIT Date of Service: 07/04/24 MR#: [id number] Acct: [id number] Name: ROSANA MAKI Rep #: [id number] : 1940 Provider: Dr. Erick seymour MD Age/Sex: 84/F Location: [facility] Status: Signed HPI [facility] Chief Complaint: Details: Interim History: Rosana returns [...] may cause QTc prolongation. 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 She has reduced her fluid intake and [...] She had a head CT at the [facility] and [place]; results are presently not available and she [...] 1. Chronic (more content not included)... Normal [facility] CNOVon 06-28-2024 CNOV Office Visit (PODIWS ) ROSANA MAKI ([id number]) 1940 F NFR Date Time Provider Department [...] Exam: O (more content not included)... Normal [facility] 12 Lead EKGon 06-25-2024 12 Lead EKG [facility] [address] [place] [address] 12 Lead EKG 06/25/24 1404 MR#: [id number] Acct: [id number] Name: ROSANA MAKI Rep #: [id number] : 1940 84 From: Colt Erickson MD [...] block Borderline ECG Confirmed by Colt Erickson ([id number]), president & ceo [employer] PASTOR FREED ([id number]) on 06/27/2024 9:33:47 AM Referred By: Confirmed By:Colt Erickson 06/27/24 0933 Date Colt Erickson MD CC: Dr. Rochelle Hackett MD; Dr. Girish Jay DO Signed Normal [facility] CBC W/Diff, Automatedon 06-14 Absolute Lymph 1.41 X10 3/uL Normal 0.83-4.51 [facility] Comment on above: Performed By: #### L 100.0100 #### [facility] [address] [place], [address] Absolute Neut 2.9 X10 3/uL Normal 2.0-7.7 [facility] Comment on above: Performed By: #### L 100.0100 #### [facility] [address] [place], [address] Basophils/100 WBC (Bld) 0.4 % Normal 0-1 [facility] Comment on above: Performed By: #### L 100.0100 #### [facility] [address] [place], [address] Eosinophils/100 WBC (Bld) 3.4 % Normal 0-5 [facility] Comment on above: Performed By: #### L 100.0100 #### [facility] [address] [place], [address] Erythrocyte distribution width (RBC) [Ratio] 14.8 % High 11.6-14.6 [facility] Comment on above: Performed By: #### L 100.0100 #### [facility] [address] [place], [address] Hematocrit (Bld) [Volume fraction] 33.8 % Low 37-47 [facility] Comment on above: Performed By: #### L 100.0100 #### [facility] [address] [place], [address] Hemoglobin (Bld) [Mass/Vol] 11.0 g/dL Low 12.0-15.0 [facility] Comment on above: Performed By: #### L 100.0100 #### [facility] [address] [place], [address] IG% 0.000 Normal 0.0-0.9 [facility] Comment on above: Result Comment: IG% - Immature Granulocytes (promyelocytes, myelocytes and metamyelocytes) > 1% indicates that a LEFT SHIFT is Present. Performed By: #### L 100.0100 #### [facility] [address] [place], [address] Lymphocytes/100 WBC (Bld) 27.9 % Normal 19-41 [facility] Comment on above: Performed By: #### L 100.0100 #### [facility] [address] [place], [address] MCH (RBC) [Entitic mass] 30.9 pg Normal 27.0-32.0 [facility] Comment on above: Performed By: #### L 100.0100 #### [facility] [address] [place], [address] MCHC (RBC) [Mass/Vol] 32.5 g/dL Normal 32-36 [facility] Comment on above: Performed By: #### L 100.0100 #### [facility] [address] [place], [address] MCV (RBC) [Entitic vol] 94.9 fL Normal 81-99 [facility] Comment on above: Performed By: #### L 100.0100 #### [facility] [address] [place], [address] Monocytes/100 WBC (Bld) 11.3 % High 0-10 [facility] Comment on above: Performed By: #### L 100.0100 #### [facility] [address] [place], [address] Neutrophils/100 WBC (Bld) 57.0 % Normal 47-70 [facility] Comment on above: Performed By: #### L 100.0100 #### [facility] [address] [place], [address] Nucleated RBC (Bld) [#/Vol] 0 10*3/uL Normal 0-5 [facility] Comment on above: Performed By: #### L 100.0100 #### [facility] [address] [place], [address] Platelet mean volume (Bld) [Entitic vol] 9.2 fL Normal 6.2-12.0 [facility] Comment on above: Performed By: #### L 100.0100 #### [facility] [address] [place], [address] Platelets (Bld) [#/Vol] 220 10*3/uL Normal 150-450 [facility] Comment on above: Performed By: #### L 100.0100 #### [facility] [address] [place], [address] RBC (Bld) [#/Vol] 3.56 10*6/uL Low 4.2-5.4 [facility] Comment on above: Performed By: #### L 100.0100 #### [facility] [address] [place], [address] RDW SD 52.4 fl High 35.1-43.9 [facility] Comment on above: Performed By: #### L 100.0100 #### [facility] [address] [place], [address] WBC (Bld) [#/Vol] 5.1 10*3/uL Normal 4.4-11.0 [facility] Comment on above: Performed By: #### L 100.0100 #### [facility] [address] [place], [address] Chest 1 View (Portable)on Chest 1 View (Portable) [facility] Imaging Services [address] [place] [address] Chest 1 View (Portable) MR#: [id number] Acct: [id number] Name: ROSANA MAKINICOLAS Rep #: [id number] : 1940 F 84 From: Max Madison MD PCP: Dr. Rochelle Hackett MD Status: REG ER Study: Chest 1 View (Portable) Date of Exam: 06/25/24 Exam# [id number] Ordering Dr: Girish Jay DO 0:[id number] EXAM: XR CHEST, 1 VIEW CLINICAL INDICATION: [...] Rochelle Hackett MD; Dr. Girish Jay DO Staff Design Engineer: Signed Normal [facility] Comprehensive Metabolic Prof ilon 06-25-2024 Albumin [Mass/Vol] 2.8 g/dL Low 3.2-5.0 [facility] Comment on above: Performed By: #### L 500.4050 #### [facility] [address] [place], [place], [address] Albumin/Globulin [Mass ratio] 0.9 {ratio} Normal 0.9-2.4 [facility] Comment on above: Performed By: #### L 500.4050 #### [facility] [address] [place], [address] ALK P 69 U/L Normal 45-117 [facility] Comment on above: Performed By: #### L 500.4050 #### [facility] [address] [place], [address] ALT [Catalytic activity/Vol] 22 U/L Normal 13-56 [facility] Comment on above: Performed By: #### L 500.4050 #### [facility] [address] [place], [address] AST [Catalytic activity/Vol] 19 U/L Normal 15-37 [facility] Comment on above: Performed By: #### L 500.4050 #### [facility] [address] [place], [address] Bilirubin [Mass/Vol] 0.50 mg/dL Normal 0.20-1.00 [facility] Comment on above: Result Comment: For patients on eltrombopag therapy, use of Dimension [place] TBIL is not recommended. Performed By: #### L 500.4050 #### [facility] [address] [place], [address] BUN/CRE 24.1 RATIO High 10-20 [facility] Comment on above: Performed By: #### L 500.4050 #### [facility] [address] [place], [address] CA,Total 8.6 mg/dL Normal 8.5-10.1 [facility] Comment on above: Performed By: #### L 500.4050 #### [facility] [address] [place], [address] Chloride [Moles/Vol] 98 mmol/L Normal 98-107 [facility] Comment on above: Performed By: #### L 500.4050 #### [facility] [address] [place], [address] CO2 [Moles/Vol] 27.0 mmol/L Normal 21.0-32.0 [facility] Comment on above: Performed By: #### L 500.4050 #### [facility] [address] [place], [address] Creatinine [Mass/Vol] 0.79 mg/dL Normal 0.55-1.02 [facility] Comment on above: Result Comment: The validity of the calculated GFR GFRAA in patients over 70 years has not been determined. Clinical correlation is essential. Performed By: #### L 500.4050 #### [facility] [address] [place], [address] EST GFR - AA 90 mL/min Normal >60 [facility] Comment on above: Result Comment: Afri can Guamanian GFR Calc Performed By: #### L 500.4050 #### [facility] [address] [place], [address] GAP 5 Normal 5-15 [facility] Comment on above: Performed By: #### L 500.4050 #### [facility] [address] [place], [address] GFR/1.73 sq M.predicted among non-blacks MDRD (S/P/Bld) [Vol rate/Area] 74 mL/min/{1.73_m2} Normal >60 [facility] Comment on above: Result Comment: Non- GFR Calc Performed By: #### L 500.4050 #### [facility] [address] [place], [address] Globulin (S) [Mass/Vol] 3.1 g/dL Normal 2.2-4.2 [facility] Comment on above: Performed By: #### L 500.4050 #### [facility] [address] [place], [address] Glucose [Mass/Vol] 93 mg/dL Normal 74-106 [facility] Comment on above: Performed By: #### L 500.4050 #### [facility] [address] [place], [address] Potassium [Moles/Vol] 4.0 mmol/L Normal 3.5-5.1 [facility] Comment on above: Performed By: #### L 500.4050 #### [facility] [address] [place], [address] Sodium [Moles/Vol] 130 mmol/L Low 136-145 [facility] Comment on above: Performed By: #### L 500.4050 #### [facility] [address] [place], [address] T PROT 5.9 g/dL Low 6.4-8.2 [facility] Comment on above: Performed By: #### L 500.4050 #### [facility] [address] [place], [place], [address] Urea nitrogen [Mass/Vol] 19 mg/dL High 7-18 [facility] Comment on above: Performed By: #### L 500.4050 #### [facility] [address] [place], [address] Emergency Department Summary on 06-25-2024 Emergency Department Summary [facility] Medical Records Department [address] [place] [address] Emergency Department Summary 06/25/24 MR#: [id number] Acct: [id number] Name: ROSANA MAKI Rep #: [id number] : 1940 84 From: Girish Jay DO [...] overall states she is just tired [facility] Medical History Motion sickness Adrenal insufficiency History [...] Smoking Status: (more content not included)... Normal [facility] Urinalysis, Completeon 06-25 RBC 0-5 SEEN Normal 0-5 [facility] Comment on above: Order Comment: CLEAN CATCH Performed By: #### L 400.0001 #### [facility] [address] [place], [place], [address] WBC 5-10 SEEN Normal 0-5 [facility] Comment on above: Order Comment: CLEAN CATCH Performed By: #### L 400.0001 #### [facility] [address] [place], [address] BACTERIA 0 SEEN Normal None Seen [facility] Comment on above: Order Comment: CLEAN CATCH Performed By: #### L 400.0001 #### [facility] [address] [place], [address] EPI,SQUAMOUS 0 SEEN Normal 5-10 [facility] Comment on above: Order Comment: CLEAN CATCH Performed By: #### L 400.0001 #### [facility] [address] [place], [address] Mucus Ql (Urine sed) 0 SEEN Normal [facility] Comment on above: Order Comment: CLEAN CATCH Performed By: #### L 400.0001 #### [facility] [address] [place], [place], [address] Absolute neutrophil countOrd ered By: Larissa Nguyễn on 06-07-2024 Neutrophils (Bld) [#/Vol] 2.3 10*3/uL 2.0-7.7 [facility] Alanine aminotransferase (AL T) assayOrdered By: Larissa Nguyễn on 06-07-2024 ALT [Catalytic activity/Vol] 25 U/L 13-56 [facility] Albumin to globulin ratioOrd ered By: Larissa Nguyễn on 06-07-2024 Albumin/Globulin [Mass ratio] 0.9 {ratio} 0.9-2.4 [facility] Alkaline phosphataseOrdered By: Larissa Nguyễn on 06-07-2024 ALP [Catalytic activity/Vol] 88 U/L 45-117 [facility] Basophil percentageOrdered B y: Larissa Nguyễn on 06-07-2024 Basophils/100 WBC (Bld) 1.0 % 0-1 [facility] Bilirubin, totalOrdered By: Larissa Nguyễn on 06-07-2024 Bilirubin [Mass/Vol] 0.50 mg/dL 0.20-1.00 [facility] Comment on above: For patients on eltr ombopag therapy, use of Dimension [place] TBIL is not recommended. CBC W/Diff, Automatedon 09-2 Absolute Lymph 1.92 X10 3/uL Normal 0.83-4.51 [facility] Comment on above: Performed By: #### L 500.4050, L100.0100 #### [facility] [address] [place], [address] Absolute Neut 2.3 X10 3/uL Normal 2.0-7.7 [facility] Comment on above: Performed By: #### L 500.4050, L100.0100 #### [facility] [address] [place], [address] Basophils/100 WBC (Bld) 1.0 % Normal 0-1 [facility] Comment on above: Performed By: #### L 500.4050, L100.0100 #### [facility] [address] [place], [address] Eosinophils/100 WBC (Bld) 2.2 % Normal 0-5 [facility] Comment on above: Performed By: #### L 500.4050, L100.0100 #### [facility] [address] [place], [address] Erythrocyte distribution width (RBC) [Ratio] 15.5 % High 11.6-14.6 [facility] Comment on above: Performed By: #### L 500.4050, L100.0100 #### [facility] [address] [place], [address] Hematocrit (Bld) [Volume fraction] 34.1 % Low 37-47 [facility] Comment on above: Performed By: #### L 500.4050, L100.0100 #### [facility] [address] [place], [address] Hemoglobin (Bld) [Mass/Vol] 11.5 g/dL Low 12.0-15.0 [facility] Comment on above: Performed By: #### L 500.4050, L100.0100 #### [facility] [address] [place], [address] IG% 0.000 Normal 0.0-0.9 [facility] Comment on above: Result Comment: IG% - Immature Granulocytes (promyelocytes, myelocytes and metamyelocytes) > 1% indicates that a LEFT SHIFT is Present. Performed By: #### L 500.4050, L100.0100 #### [facility] [address] [place], [address] Lymphocytes/100 WBC (Bld) 39.3 % Normal 19-41 [facility] Comment on above: Performed By: #### L 500.4050, L100.0100 #### [facility] [address] [place], [address] MCH (RBC) [Entitic mass] 31.4 pg Normal 27.0-32.0 [facility] Comment on above: Performed By: #### L 500.4050, L100.0100 #### [facility] [address] [place], [address] MCHC (RBC) [Mass/Vol] 33.7 g/dL Normal 32-36 [facility] Comment on above: Performed By: #### L 500.4050, L100.0100 #### [facility] [address] [place], [address] MCV (RBC) [Entitic vol] 93.2 fL Normal 81-99 [facility] Comment on above: Performed By: #### L 500.4050, L100.0100 #### [facility] [address] [place], [address] Monocytes/100 WBC (Bld) 11.0 % High 0-10 [facility] Comment on above: Performed By: #### L 500.4050, L100.0100 #### [facility] [address] [place], [address] Neutrophils/100 WBC (Bld) 46.5 % Low 47-70 [facility] Comment on above: Performed By: #### L 500.4050, L100.0100 #### [facility] [address] [place], [address] Nucleated RBC (Bld) [#/Vol] 0 10*3/uL Normal 0-5 [facility] Comment on above: Performed By: #### L 500.4050, L100.0100 #### [facility] [address] [place], [address] Platelet mean volume (Bld) [Entitic vol] 8.7 fL Normal 6.2-12.0 [facility] Comment on above: Performed By: #### L 500.4050, L100.0100 #### [facility] [address] [place], [address] Platelets (Bld) [#/Vol] 233 10*3/uL Normal 150-450 [facility] Comment on above: Performed By: #### L 500.4050, L100.0100 #### [facility] [address] [place], [address] RBC (Bld) [#/Vol] 3.66 10*6/uL Low 4.2-5.4 [facility] Comment on above: Performed By: #### L 500.4050, L100.0100 #### [facility] [address] [place], [address] RDW SD 53.1 fl High 35.1-43.9 [facility] Comment on above: Performed By: #### L 500.4050, L100.0100 #### [facility] [address] [place], [address] WBC (Bld) [#/Vol] 4.9 10*3/uL Normal 4.4-11.0 [facility] Comment on above: Performed By: #### L 500.4050, L100.0100 #### [facility] [address] [place], [address] Absolute Neut Normal 2.0-7.7 [facility] Comment on above: Result Comment: DUPL ICATED ORDERS Performed By: #### L 500.4050, L100.0100 #### [facility] [address] [place], [address] HCT Normal 37-47 [facility] Comment on above: Result Comment: DUPL ICATED ORDERS Performed By: #### L 500.4050, L100.0100 #### [facility] [address] [place], [address] HGB Normal 12.0-15.0 [facility] Comment on above: Result Comment: DUPL ICATED ORDERS Performed By: #### L 500.4050, L100.0100 #### [facility] [address] [place], [address] MCH Normal 27.0-32.0 [facility] Comment on above: Result Comment: DUPL ICATED ORDERS Performed By: #### L 500.4050, L100.0100 #### [facility] [address] [place], [address] MCHC Normal 32-36 [facility] Comment on above: Result Comment: DUPL ICATED ORDERS Performed By: #### L 500.4050, L100.0100 #### [facility] [address] [place], [address] MCV Normal 81-99 [facility] Comment on above: Result Comment: DUPL ICATED ORDERS Performed By: #### L 500.4050, L100.0100 #### [facility] [address] [place], [address] NEUT% Normal 47-70 [facility] Comment on above: Result Comment: DUPL ICATED ORDERS Performed By: #### L 500.4050, L100.0100 #### [facility] [address] [place], [address] PLT Normal 150-450 [facility] Comment on above: Result Comment: DUPL ICATED ORDERS Performed By: #### L 500.4050, L100.0100 #### [facility] [address] [place], [address] RBC Normal 4.2-5.4 [facility] Comment on above: Result Comment: DUPL ICATED ORDERS Performed By: #### L 500.4050, L100.0100 #### [facility] [address] [place], [address] RDW CV Normal 11.6-14.6 [facility] Comment on above: Result Comment: DUPL ICATED ORDERS Performed By: #### L 500.4050, L100.0100 #### [facility] [address] [place], [address] RDW SD Normal 35.1-43.9 [facility] Comment on above: Result Comment: DUPL ICATED ORDERS Performed By: #### L 500.4050, L100.0100 #### [facility] [address] [place], [address] WBC Normal 4.4-11.0 [facility] Comment on above: Result Comment: DUPL ICATED ORDERS Performed By: #### L 500.4050, L100.0100 #### [facility] [address] [place], [address] Comprehensive Metabolic Prof ilon 06-07-2024 Albumin [Mass/Vol] 3.2 g/dL Normal 3.2-5.0 [facility] Comment on above: Performed By: #### L 500.4050, L100.0100 #### [facility] [address] [place], [address] Albumin/Globulin [Mass ratio] 0.9 {ratio} Normal 0.9-2.4 [facility] Comment on above: Performed By: #### L 500.4050, L100.0100 #### [facility] [address] [place], [address] ALK P 88 U/L Normal 45-117 [facility] Comment on above: Performed By: #### L 500.4050, L100.0100 #### [facility] [address] [place], [address] ALT [Catalytic activity/Vol] 25 U/L Normal 13-56 [facility] Comment on above: Performed By: #### L 500.4050, L100.0100 #### [facility] [address] [place], [address] AST [Catalytic activity/Vol] 26 U/L Normal 15-37 [facility] Comment on above: Performed By: #### L 500.4050, L100.0100 #### [facility] [address] [place], [address] Bilirubin [Mass/Vol] 0.50 mg/dL Normal 0.20-1.00 [facility] Comment on above: Result Comment: For patients on eltrombopag therapy, use of Dimension [place] TBIL is not recommended. Performed By: #### L 500.4050, L100.0100 #### [facility] [address] [place], [address] BUN/CRE 20.0 RATIO Normal 10-20 [facility] Comment on above: Performed By: #### L 500.4050, L100.0100 #### [facility] [address] [place], [address] CA,Total 8.7 mg/dL Normal 8.5-10.1 [facility] Comment on above: Performed By: #### L 500.4050, L100.0100 #### [facility] [address] [place], [address] Chloride [Moles/Vol] 100 mmol/L Normal 98-107 [facility] Comment on above: Performed By: #### L 500.4050, L100.0100 #### [facility] [address] [place], [address] CO2 [Moles/Vol] 29.0 mmol/L Normal 21.0-32.0 [facility] Comment on above: Performed By: #### L 500.4050, L100.0100 #### [facility] [address] [place], [address] Creatinine [Mass/Vol] 1.00 mg/dL Normal 0.55-1.02 [facility] Comment on above: Result Comment: The validity of the calculated GFR GFRAA in patients over 70 years has not been determined. Clinical correlation is essential. Performed By: #### L 500.4050, L100.0100 #### [facility] [address] [place], [address] ECRCL 37.04 ml/min Normal [facility] Comment on above: Performed By: #### L 500.4050, L100.0100 #### [facility] [address] [place], [address] EST GFR - AA 68 mL/min Normal >60 [facility] Comment on above: Result Comment: Afri can Guamanian GFR Calc Performed By: #### L 500.4050, L100.0100 #### [facility] [address] [place], [address] GAP 4 Low 5-15 [facility] Comment on above: Performed By: #### L 500.4050, L100.0100 #### [facility] [address] [place], [address] GFR/1.73 sq M.predicted among non-blacks MDRD (S/P/Bld) [Vol rate/Area] 57 mL/min/{1.73_m2} Low >60 [facility] Comment on above: Result Comment: Non- GFR Calc Performed By: #### L 500.4050, L100.0100 #### [facility] [address] [place], [address] Globulin (S) [Mass/Vol] 3.7 g/dL Normal 2.2-4.2 [facility] Comment on above: Performed By: #### L 500.4050, L100.0100 #### [facility] [address] [place], [address] Glucose [Mass/Vol] 106 mg/dL Normal 74-106 [facility] Comment on above: Result Comment: Fast ing Glucose result from 100 to 125 mg/dL suggests IMPAIRED HOMEOSTASIS per A.D.A. criteria. Performed By: #### L 500.4050, L100.0100 #### [facility] [address] [place], [address] Potassium [Moles/Vol] 4.1 mmol/L Normal 3.5-5.1 [facility] Comment on above: Performed By: #### L 500.4050, L100.0100 #### [facility] [address] [place], [address] Sodium [Moles/Vol] 133 mmol/L Low 136-145 [facility] Comment on above: Performed By: #### L 500.4050, L100.0100 #### [facility] [address] [place], [address] T PROT 6.9 g/dL Normal 6.4-8.2 [facility] Comment on above: Performed By: #### L 500.4050, L100.0100 #### [facility] [address] [place], [address] Urea nitrogen [Mass/Vol] 20 mg/dL High 7-18 [facility] Comment on above: Performed By: #### L 500.4050, L100.0100 #### [facility] [address] [place], [address] ALB Normal 3.2-5.0 [facility] Comment on above: Result Comment: DUPL ICATED ORDERS Performed By: #### L 500.4050, L100.0100 #### [facility] [address] [place], [address] ALK P Normal 45-117 [facility] Comment on above: Result Comment: DUPL ICATED ORDERS Performed By: #### L 500.4050, L100.0100 #### [facility] [address] [place], [address] ALT Normal 13-56 [facility] Comment on above: Result Comment: DUPL ICATED ORDERS Performed By: #### L 500.4050, L100.0100 #### [facility] [address] [place], [address] AST Normal 15-37 [facility] Comment on above: Result Comment: DUPL ICATED ORDERS Performed By: #### L 500.4050, L100.0100 #### [facility] [address] [place], [address] BUN Normal 7-18 [facility] Comment on above: Result Comment: DUPL ICATED ORDERS Performed By: #### L 500.4050, L100.0100 #### [facility] [address] [place], [address] BUN/CRE Normal 10-20 [facility] Comment on above: Result Comment: DUPL ICATED ORDERS Performed By: #### L 500.4050, L100.0100 #### [facility] [address] [place], [address] CA,Total Normal 8.5-10.1 [facility] Comment on above: Result Comment: DUPL ICATED ORDERS Performed By: #### L 500.4050, L100.0100 #### [facility] [address] [place], [address] CL Normal 98-107 [facility] Comment on above: Result Comment: DUPL ICATED ORDERS Performed By: #### L 500.4050, L100.0100 #### [facility] [address] [place], [address] CO2 Normal 21.0-32.0 [facility] Comment on above: Result Comment: DUPL ICATED ORDERS Performed By: #### L 500.4050, L100.0100 #### [facility] [address] [place], [address] CREAT,SERUM Normal 0.55-1.02 [facility] Comment on above: Result Comment: DUPL ICATED ORDERS Performed By: #### L 500.4050, L100.0100 #### [facility] [address] [place], [address] EST GFR Normal >60 [facility] Comment on above: Result Comment: DUPL ICATED ORDERS Performed By: #### L 500.4050, L100.0100 #### [facility] [address] [place], [address] EST GFR - AA Normal >60 [facility] Comment on above: Result Comment: DUPL ICATED ORDERS Performed By: #### L 500.4050, L100.0100 #### [facility] [address] [place], [address] GAP Normal 5-15 [facility] Comment on above: Result Comment: DUPL ICATED ORDERS Performed By: #### L 500.4050, L100.0100 #### [facility] [address] [place], [address] GLU Normal 74-106 [facility] Comment on above: Result Comment: DUPL ICATED ORDERS Performed By: #### L 500.4050, L100.0100 #### [facility] [address] [place], [address] Potassium Normal 3.5-5.1 [facility] Comment on above: Result Comment: DUPL ICATED ORDERS Performed By: #### L 500.4050, L100.0100 #### [facility] [address] [place], [address] T BILI Normal 0.20-1.00 [facility] Comment on above: Result Comment: DUPL ICATED ORDERS Performed By: #### L 500.4050, L100.0100 #### [facility] [address] [place], [address] T PROT Normal 6.4-8.2 [facility] Comment on above: Result Comment: DUPL ICATED ORDERS Performed By: #### L 500.4050, L100.0100 #### [facility] [address] [place], [address] Comprehensive Metabolic Profil Normal 136-145 [facility] Comment on above: Result Comment: DUPL ICATED ORDERS Performed By: #### L 500.4050, L100.0100 #### [facility] [address] [place], [address] Eosinophil percentageOrdered By: Larissa Nguyễn on 06-07-2024 Eosinophils/100 WBC (Bld) 2.2 % 0-5 [facility] Erythrocyte distribution wid th (RBC) [Ratio]Ordered By: Larissa Nguyễn on 06-07-2024 Erythrocyte distribution width (RBC) [Entitic vol] 53.1 fL High 35.1-43.9 [facility] Erythrocyte distribution wid th ratioOrdered By: Larissa Nguyễn on 06-07-2024 Erythrocyte distribution width (RBC) [Ratio] 15.5 % High 11.6-14.6 [facility] Hematocrit Auto (Bld) [Volum e fraction]Ordered By: Larissa Nguyễn on 06-07-2024 Hematocrit (Bld) [Volume fraction] 34.1 % Low 37-47 [facility] Hemoglobin measurementOrdere d By: Larissa Nguyễn on 06-07-2024 Hemoglobin (Bld) [Mass/Vol] 11.5 g/dL Low 12.0-15.0 [facility] Immature granulocytes/100 WB C Auto (Bld)Ordered By: Larissa Nguyễn on 06-07-2024 Immature granulocytes/100 WBC (Bld) 0.000 % 0.0-0.9 [facility] Comment on above: IG% - Immature Granu locytes (promyelocytes, myelocytes and metamyelocytes) > 1% indicates that a LEFT SHIFT is Present. Laboratory - Chemistry and C hemistry - challengeOrdered By: Larissa Nguyễn on 06-07-2024 AST [Catalytic activity/Vol] 26 U/L 15-37 [facility] Lymphocytes Auto (Unsp spec) [#/Vol]Ordered By: Larissa Nguyễn on 06-07-2024 Lymphocytes (Bld) [#/Vol] 1.92 10*3/uL 0.83-4.51 [facility] Lymphocytes/100 WBC Auto (Un sp spec)Ordered By: Larissa Nguyễn on 06-07-2024 Lymphocytes/100 WBC (Bld) 39.3 % 19-41 [facility] MCV (mean corpuscular volume ) determinationOrdered By: Larissa Nguyễn on 06-07-2024 MCV (RBC) [Entitic vol] 93.2 fL 81-99 [facility] Mean corpuscular hemoglobin (MCH) determinationOrdered By: Larissa Nguyễn on 06-07-2024 MCH (RBC) [Entitic mass] 31.4 pg 27.0-32.0 [facility] Mean corpuscular hemoglobin concentration (MCHC) determinationOrdered By: Larissa Nguyễn on 06-07-2024 MCHC (RBC) [Mass/Vol] 33.7 g/dL 32-36 [facility] Mean platelet volume determi nationOrdered By: Larissa Nguyễn on 06-07-2024 Platelet mean volume (Bld) [Entitic vol] 8.7 fL 6.2-12.0 [facility] Monocyte percentageOrdered B y: Larissa Nguyễn on 06-07-2024 Monocytes/100 WBC (Bld) 11.0 % High 0-10 [facility] Neutrophil percentageOrdered By: Larissa Nguyễn on 06-07-2024 Neutrophils/100 WBC (Bld) 46.5 % Low 47-70 [facility] Nucleated red blood cell per centageOrdered By: aLrissa Nguyễn on 06-07-2024 Nucleated RBC/100 WBC (Bld) [Ratio] 0 % 0-5 [facility] Oncology Visit Reporton 05-16 Oncology Visit Report [facility] [place] [facility] [place] [address] OFFICE VISIT Date of Service: 06/07/24 1421 MR#: [id number] Acct: [id number] Name: ROSANA MAKI Rep #: [id number] : 1940 From: Larissa Nguyễn MD Age/Sex: 84/F Location: [facility] Status: Signed HPI Subjective Date of Service [...] single focus 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 Resection [...] Prolia/zoledronic acid every 6M June 2018 - [facility] Medical History Motion sickness Adrenal insufficiency History [...] reviewed and (more content not included)... Normal [facility] Platelet countOrdered By: Mithcell Nguyễn on 06-07-2024 Platelets (Bld) [#/Vol] 233 10*3/uL 150-450 [facility] RBC Auto (Bld) [#/Vol]Ordere d By: Larissa Nguyễn on 06-07-2024 RBC (Bld) [#/Vol] 3.66 10*6/uL Low 4.2-5.4 [facility] Serum albumin measurementOrd ered By: Larissa Nguyễn on 06-07-2024 Albumin [Mass/Vol] 3.2 g/dL 3.2-5.0 [facility] Serum globulin measurementOr dered By: Larissa Nguyễn on 06-07-2024 Globulin (S) [Mass/Vol] 3.7 g/dL 2.2-4.2 [facility] Total proteinOrdered By: Mik Nguyễn on 06-07-2024 Protein [Mass/Vol] 6.9 g/dL 6.4-8.2 [facility] White blood cell (WBC) count Ordered By: Larissa Nguyễn on 06-07-2024 WBC (Bld) [#/Vol] 4.9 10*3/uL 4.4-11.0 [facility] Office [facility] (PODIWS ) ARISROSANA WONG ([id number]) 1940 F NFR Date Time Provider Department [...] WHEN PFRMD (more content not included)... Normal [facility] Dexa Bone Density Studyon Dexa Bone Density Study [facility] Imaging Services [address] [place] [address] Dexa Bone Density Study MR#: [id number] Acct: [id number] Name: ROSANA MAKI Rep #: [id number] : 1940 F 84 From: Edenilson montgomery MD PCP: Dr. Rochelle Hackett MD Status: [facility] Study: Dexa Bone Density Study Date of Exam: 05/31/24 Exam# [id number] Ordering Dr: Larissa Nguyễn MD 0:[id number] STUDY: DUAL ENERGY X-RAY ABSORPTIOMETRY / DXA [...] Rochelle Hackett MD; Dr. Larissa Nguyễn MD Staff Design Engineer: Signed Normal [facility] SCREEN MAMM (CAD) W/SUNNI UNI Jw 05-31-2024 SCREEN MAMM (CAD) W/SUNNI UNI R [facility] Imaging Services [address] [place] [address] SCREEN MAMM (CAD) W/SUNNI UNI R MR#: [id number] Acct: [id number] Name: ROSANA MAKI Rep #: [id number] : 1940 F 84 From: Edenilson montgomery MD PCP: Dr. Rochelle Hackett MD Status: [facility] Study: SCREEN MAMM (CAD) W/SUNNI UNI R Date of Exam: 0 05/31/24 Exam# [id number] Ordering Dr: Larissa Nguyễn MD 6:[id number] MAMMOGRAPHY - UNILATERAL SCREENING: RIGHT BREAST REASON [...] delay biopsy of a clinically suspicious abnormality. [id number] Electronically Signed: Edenilson Crisostomo MD at 14:19 EDT , CC: Dr. Rochelle Hackett MD; Dr. Larissa Nguyễn MD Staff Design Engineer: Signed Normal [facility] 05-20-2024 [facility] Telephone (INTMWS) ROSANA MAKI ([id number]) 1940 F NFR Date Time Provider Department [...] Asymptomatic Postmenopausal Status (Age-Related* 10/28/2012 Osteoarth NOS-L/Leg [VHV6607] Palpitations [R00.2] 02/23/2009 Osteoporosis [M81.0] 07/04/2009 03/13/2012 [...] Status:Closed by TERI ARAIZA on 05/20/24 Normal [facility] CNOVon 05-18-2024 CNOV Office Visit (INTMWS ) ROSANA MAKI ([id number]) 1940 F NFR Date Time Provider Department 05/18/24 10:00 AM ROCHELLE HACKETT INTMWS During your visit today, we recorded the following information about you: Pulse Respiration Blood pressure Weight 68/minute 16/minute 128/72 53.6 kg Rochelle Hackett MD 05/18/2024 1:04 PM Signed [facility] Initial Consult Rosana Maki [...] secure location? Yes Social History: Primary language: Lebanese Marital Status: Living situation: Home w/ Spouse Socially engaged? (participates in activities such as clubs, moravian, community center, sports, games, visiting friends/relatives, etc?): YES moravian, they go there 2 times a week. They meet with friends a lot Caregiver [place] and Stress Are your feeling overwhelmed? NO [...] rare sy (more content not included)... Normal [facility] Magnesium SerPl-mCncon 05-17 Magnesium [Mass/Vol] 2.1 mg/dL Normal 1.7-2.3 [facility] Comment on above: Order Comment: Speci men Type: BLOOD SPECIMENOrdering Facility: [facility] Address: [address] [place] [address] Performed By: #### 1 9123-9 ####[facility] LABCLIA [id number] [address] [place] CNOVon 04-22-2024 CNOV Office Visit (PODIWS ) ROSANA MAKI ([id number]) 1940 F NFR Date Time Provider Department 04/22/24 1:40 PM SOL HARVEY During your visit today, we recorded the following information about you: Caroline Day LITIGATION ASSOCIATE 04/22/2024 2:07 PM Signed AMB ROOMING INTAKE [...] (HCC) 04/25/2008: Chondrocalcinosis, cause unspecified, involving lower leg(532.36) Comment: CPPD right leg (on xray) - has never had an acute pseudogout attack No date: Chronic fatigue No date: Compression fracture of L1 lumbar vertebra (HCC) No date: Concussion No date: Depression No date: Diverticulosis of colon (without mention of hemorrhage) No date: Diverticulosis of large intestine No date: Duodenitis without mention of hemorrhage No date: Dysphagia 08/01/2010: Dysphagia, unspecified(937.20) No date: Esophageal reflux Comment: rare symptoms, [...] this visit. (more content not included)... Normal [facility] CBC W Auto Differential pane l (Bld)on 04-12-2024 Basophils (Bld) [#/Vol] 0.04 10*3/uL [facility] Basophils/100 WBC (Bld) 0.9 % [facility] Differential cell count method Nom (Bld) Auto [facility] Eosinophils (Bld) [#/Vol] 0.21 10*3/uL [facility] Eosinophils/100 WBC (Bld) 4.9 % [facility] Erythrocyte distribution width (RBC) [Ratio] 15.7 % High 11.5 - 15.0 % [facility] Hematocrit (Bld) [Volume fraction] 35.1 % Low 36.0 - 46.0 % [facility] Hemoglobin (Bld) [Mass/Vol] 11.5 g/dL 11.5 - 15.5 g/dL [facility] Immature granulocytes (Bld) [#/Vol] [facility] Immature granulocytes/100 WBC (Bld) 0.0 % [facility] Interpretation and review of laboratory results Abnormal [facility] Lymphocytes (Bld) [#/Vol] 1.69 10*3/uL [facility] Lymphocytes/100 WBC (Bld) 39.3 % [facility] MCH (RBC) [Entitic mass] 29.9 pg 26.0 - 34.0 pg [facility] MCHC (RBC) [Mass/Vol] 32.8 g/dL 30.5 - 36.0 g/dL [facility] MCV (RBC) [Entitic vol] 91.4 fL 80.0 - 100.0 fL [facility] Monocytes (Bld) [#/Vol] 0.63 10*3/uL [facility] Monocytes/100 WBC (Bld) 14.7 % C [facility] Neutrophils (Bld) [#/Vol] 1.73 10*3/uL [facility] Neutrophils/100 WBC (Bld) 40.2 % [facility] Nucleated RBC (Bld) [#/Vol] NINF [facility] Nucleated RBC/100 WBC (Bld) [Ratio] 0.0 % /100 WBC [facility] Platelet mean volume (Bld) [Entitic vol] 9.9 fL 9.0 - 12.7 fL [facility] Platelets (Bld) [#/Vol] 269 10*3/uL [facility] RBC (Bld) [#/Vol] 3.84 10*6/uL Low 3.90 - 5.20 m/uL [facility] WBC (Bld) [#/Vol] 4.30 10*3/uL [facility] Basophils (Bld) [#/Vol] 0.04 10*3/uL Normal <0.11 [facility] Comment on above: Order Comment: Speci men Type: BLOOD SPECIMENOrdering Facility: [facility] Address: [address] [place] [address] Performed By: #### 5 7021-8 ####[facility] LABIA [id number] [place] [address] [place] Basophils/100 WBC (Bld) 0.9 % Normal [facility] Comment on above: Order Comment: Speci men Type: BLOOD SPECIMENOrdering Facility: [facility] Address: [address] [place] [address] Performed By: #### 5 7021-8 ####[facility] LABCLIA [id number] [place] [address] [place] Differential cell count method Nom (Bld) Auto Normal [facility] Comment on above: Order Comment: Speci men Type: BLOOD SPECIMENOrdering Facility: [facility] Address: [address] [place] [address] Performed By: #### 5 7021-8 ####[facility] LABIA [id number] [place] [address] [place] Eosinophils (Bld) [#/Vol] 0.21 10*3/uL Normal <0.46 [facility] Comment on above: Order Comment: Speci men Type: BLOOD SPECIMENOrdering Facility: [facility] Address: [address] [place] [address] Performed By: #### 5 7021-8 ####[facility] LABCLIA [id number] [place] [address] [place] Eosinophils/100 WBC (Bld) 4.9 % Normal [facility] Comment on above: Order Comment: Speci men Type: BLOOD SPECIMENOrdering Facility: [facility] Address: [address] [place] [address] Performed By: #### 5 7021-8 ####[facility] LABCLIA [id number] [place] [address] [place] Erythrocyte distribution width (RBC) [Ratio] 15.7 % High 11.5-15.0 [facility] Comment on above: Order Comment: Speci men Type: BLOOD SPECIMENOrdering Facility: [facility] Address: [address] [place] [address] Performed By: #### 5 7021-8 ####[facility] LABCLIA [id number] [place] [address] [place] Hematocrit (Bld) [Volume fraction] 35.1 % Low 36.0-46.0 [facility] Comment on above: Order Comment: Speci men Type: BLOOD SPECIMENOrdering Facility: [facility] Address: [address] [place] [address] Performed By: #### 5 7021-8 ####[facility] LABCLIA [id number] [place] [address] [place] Hemoglobin (Bld) [Mass/Vol] 11.5 g/dL Normal 11.5-15.5 [facility] Comment on above: Order Comment: Speci men Type: BLOOD SPECIMENOrdering Facility: [facility] Address: [address] [place] [address] Performed By: #### 5 7021-8 ####[facility] LABCLIA [id number] [place] [address] [place] Immature granulocytes (Bld) [#/Vol] 10*3/uL Normal <0.10 [facility] Comment on above: Order Comment: Speci men Type: BLOOD SPECIMENOrdering Facility: [facility] Address: [address] [place] [address] Performed By: #### 5 7021-8 ####[facility] LABCLIA [id number] [place] [address] [place] Immature granulocytes/100 WBC (Bld) 0.0 % Normal [facility] Comment on above: Order Comment: Speci men Type: BLOOD SPECIMENOrdering Facility: [facility] Address: [address] [place] [address] Performed By: #### 5 7021-8 ####[facility] LABCLIA [id number] [place] [address] [place] Lymphocytes (Bld) [#/Vol] 1.69 10*3/uL Normal 1.00-4.00 [facility] Comment on above: Order Comment: Speci men Type: BLOOD SPECIMENOrdering Facility: [facility] Address: [address] [place] [address] Performed By: #### 5 7021-8 ####[facility] LABCLIA [id number] [place] [address] [place] Lymphocytes/100 WBC (Bld) 39.3 % Normal [facility] Comment on above: Order Comment: Speci men Type: BLOOD SPECIMENOrdering Facility: [facility] Address: [address] [place] [address] Performed By: #### 5 7021-8 ####[facility] LABCLIA [id number] [place] [address] [place] MCH (RBC) [Entitic mass] 29.9 pg Normal 26.0-34.0 [facility] Comment on above: Order Comment: Speci men Type: BLOOD SPECIMENOrdering Facility: [facility] Address: [address] [place] [address] Performed By: #### 5 7021-8 ####[facility] LABCLIA [id number] [place] [address] [place] MCHC (RBC) [Mass/Vol] 32.8 g/dL Normal 30.5-36.0 [facility] Comment on above: Order Comment: Speci men Type: BLOOD SPECIMENOrdering Facility: [facility] Address: [address] [place] [address] Performed By: #### 5 7021-8 ####[facility] LABCLIA [id number] [place] [address] [place] MCV (RBC) [Entitic vol] 91.4 fL Normal 80.0-100.0 C [facility] Comment on above: Order Comment: Speci men Type: BLOOD SPECIMENOrdering Facility: [facility] Address: [address] [place] [address] Performed By: #### 5 7021-8 ####[facility] LABIA [id number] [place] [address] [place] Monocytes (Bld) [#/Vol] 0.63 10*3/uL Normal <0.87 [facility] Comment on above: Order Comment: Speci men Type: BLOOD SPECIMENOrdering Facility: [facility] Address: [address] [place] [address] Performed By: #### 5 7021-8 ####[facility] LABCLIA [id number] [place] [address] [place] Monocytes/100 WBC (Bld) 14.7 % Normal C [facility] Comment on above: Order Comment: Speci men Type: BLOOD SPECIMENOrdering Facility: [facility] Address: [address] [place] [address] Performed By: #### 5 7021-8 ####[facility] LABCLIA [id number] [place] [address] [place] Neutrophils (Bld) [#/Vol] 1.73 10*3/uL Normal 1.45-7.50 [facility] Comment on above: Order Comment: Speci men Type: BLOOD SPECIMENOrdering Facility: [facility] Address: [address] [place] [address] Performed By: #### 5 7021-8 ####[facility] LABCLIA [id number] [place] [address] [place] Neutrophils/100 WBC (Bld) 40.2 % Normal [facility] Comment on above: Order Comment: Speci men Type: BLOOD SPECIMENOrdering Facility: [facility] Address: [address] [place] [address] Performed By: #### 5 7021-8 ####[facility] LABCLIA [id number] [place] [address] [place] Nucleated RBC (Bld) [#/Vol] 10*3/uL Normal <0.01 [facility] Comment on above: Order Comment: Speci men Type: BLOOD SPECIMENOrdering Facility: [facility] Address: [address] [place] [address] Performed By: #### 5 7021-8 ####[facility] LABCLIA [id number] [place] [address] [place] Nucleated RBC/100 WBC (Bld) [Ratio] 0.0 /100 WBC Normal [facility] Comment on above: Order Comment: Speci men Type: BLOOD SPECIMENOrdering Facility: [facility] Address: [address] [place] [address] Performed By: #### 5 7021-8 ####[facility] LABCLIA [id number] [place] [address] [place] Platelet mean volume (Bld) [Entitic vol] 9.9 fL Normal 9.0-12.7 [facility] Comment on above: Order Comment: Speci men Type: BLOOD SPECIMENOrdering Facility: [facility] Address: [address] [place] [address] Performed By: #### 5 7021-8 ####[facility] LABIA [id number] [place] [address] [place] Platelets (Bld) [#/Vol] 269 10*3/uL Normal 150-400 [facility] Comment on above: Order Comment: Speci men Type: BLOOD SPECIMENOrdering Facility: [facility] Address: [address] [place] [address] Performed By: #### 5 7021-8 ####[facility] LABIA [id number] [place] [address] [place] RBC (Bld) [#/Vol] 3.84 10*6/uL Low 3.90-5.20 [facility] Comment on above: Order Comment: Speci men Type: BLOOD SPECIMENOrdering Facility: [facility] Address: [address] [place] [address] Performed By: #### 5 7021-8 ####[facility] LABIA [id number] [place] [address] [place] WBC (Bld) [#/Vol] 4.30 10*3/uL Normal 3.70-11.00 [facility] Comment on above: Order Comment: Speci men Type: BLOOD SPECIMENOrdering Facility: [facility] Address: [address] [place] [address] Performed By: #### 5 7021-8 ####[facility] LABIA [id number] [place] [address] [place] CNOVon 04-12-2024 CNOV Office Visit (INTMWS ) ROSANA MAKI ([id number]) 1940 F NFR Date Time Provider Department [...] Never used (more content not included)... [facility] NIKON Tele[facility] (FATEMEHWS) ROSANA MAKI ([id number]) 1940 F NFR Date Time Provider Department 04/12/24 AL NICHOLE During your visit today, we recorded the following information about you: Jane Harrell MA 04/12/2024 10:04 AM Signed Consult to geriatrics pended for mild cognitive impairment. Please file if agreeable. MITCHELL Riley Joy, APRN.CNP 04/13/2024 10:16 AM Signed Agree with recommendation. Consult order placed. Thank you Al Nichole APRN.MEAT STOCK CLERK Allergies As of Date: 04/12/2024 Noted Allergy [...] Diagnosis:Mild cognitive impairment [G31.84] Order(s):CONSULT TO GERIATRICS [8275] Order #: [id number]: 1 FUTURE Prescriptions as of 04/13/2024 - [...] Asymptomatic Postmenopausal Status (Age-Related* 10/28/2012 Osteoarth NOS-L/Leg [TKP1668] Palpitations [R00.2] 02/23/2009 Osteoporosis [M81.0] 07/04/2009 03/13/2012 [...] Status:Closed by CRISTINA MUNSON on 04/13/24 Normal [facility] Comprehensive metabolic 2000 panelon 04-12-2024 Albumin [Mass/Vol] 3.6 g/dL Low 3.9-4.9 [facility] Comment on above: Order Comment: Speci men Type: BLOOD SPECIMENOrdering Facility: [facility] Address: [address] [place] [address] Performed By: #### 2 4323-8, 2132-9, 48832-4, 2275-4 ####[facility] LABCLIA [id number] [address] [address] [place] ALP [Catalytic activity/Vol] 87 U/L Normal 34-123 [facility] Comment on above: Order Comment: Speci men Type: BLOOD SPECIMENOrdering Facility: [facility] Address: [address] [place] [address] Performed By: #### 2 4323-8, 2131-9, 71659-6, 2275-4 ####[facility] LABCLIA [id number] [address] [address] [place] ALT [Catalytic activity/Vol] 17 U/L Normal 7-38 [facility] Comment on above: Order Comment: Speci men Type: BLOOD SPECIMENOrdering Facility: [facility] Address: [address] [place] [address] Performed By: #### 2 4323-8, 2131-9, 14381-1, 2275-4 ####[facility] [facility] LABCLIA [id number] [address] [address] [place] Anion gap [Moles/Vol] 9 mmol/L Normal 8-15 [facility] Comment on above: Order Comment: Speci men Type: BLOOD SPECIMENOrdering Facility: [facility] Address: [address] [place] [address] Performed By: #### 2 4323-8, 9, 78814-9, 2275-4 ####[facility] LABCLIA [id number] [address] [address] [place] AST [Catalytic activity/Vol] 26 U/L Normal 13-35 [facility] Comment on above: Order Comment: Speci men Type: BLOOD SPECIMENOrdering Facility: [facility] Address: [address] [place] [address] Performed By: #### 2 4323-8, 2131-9, 82441-7, 2275-4 ####[facility] LABCLIA [id number] [address] [address] [place] Bilirubin [Mass/Vol] 0.4 mg/dL Normal 0.2-1.3 [facility] Comment on above: Order Comment: Speci men Type: BLOOD SPECIMENOrdering Facility: [facility] Address: [address] [place] [address] Performed By: #### 2 4323-8, 2131-9, 87815-8, 6-4 ####[facility] LABCLIA [id number] [address] [address] [place] Calcium [Mass/Vol] 8.7 mg/dL Normal 8.5-10.2 [facility] Comment on above: Order Comment: Speci men Type: BLOOD SPECIMENOrdering Facility: [facility] Address: [address] [place] [address] Performed By: #### 2 4323-8, 2131-9, 77173-0, 2275-4 ####[facility] LABIA [id number] [place] [id number] [place] Chloride [Moles/Vol] 98 mmol/L Normal 98-107 [facility] Comment on above: Order Comment: Speci men Type: BLOOD SPECIMENOrdering Facility: [facility] Address: [address] [place] [address] Performed By: #### 2 4323-8, 2131-9, 93292-5, 6-4 ####[facility] LABCLIA [id number] [address] [address] [place] CO2 [Moles/Vol] 25 mmol/L Normal 22-30 [facility] Comment on above: Order Comment: Speci men Type: BLOOD SPECIMENOrdering Facility: [facility] Address: [address] [place] [address] Performed By: #### 2 4323-8, 2131-9, 92032-8, 6-4 ####[facility] LABIA [id number] [address] [address] [place] Creatinine [Mass/Vol] 0.77 mg/dL Normal 0.58-0.96 [facility] Comment on above: Order Comment: Adelaida agudelo Type: BLOOD SPECIMENOrdering Facility: [facility] Address: [address] [place] [address] Performed By: #### 2 4323-8, 2-9, 33637-7, 2275-4 ####[facility] LABIA [id number] [place] [id number] [place] Creatinine and Glomerular filtration rate.predicted panel (S/P/Bld) 77 mL/min/1.73m??? Normal >=60 [facility] Comment on above: Order Comment: Adelaida agudelo Type: BLOOD SPECIMENOrdering Facility: [facility] Address: [address] [place] [address] Result Comment: Merna mated Glomerular Filtration Rate [...] GFR. Performed By: #### 2 4323-8, 2-9, 89775-7, 2275-4 ####[facility] LABIA [id number] [address] [address] [place] Glucose [Mass/Vol] 81 mg/dL Normal 74-99 [facility] Comment on above: Order Comment: Adelaida agudelo Type: BLOOD SPECIMENOrdering Facility: [facility] Address: [address] [place] [address] Result Comment: The [place] Diabetes Association (ADA) provides guidance for cutoff [...] Standards of Medical Care in Diabetes 2016, [place] [employer]. Diabetes Care. 2016.39(Suppl 1). Performed By: #### 2 4323-8, 9, 01756-9, 2275-4 ####[facility] LABIA [id number] [place] [id number] [place] Potassium [Moles/Vol] 4.4 mmol/L Normal 3.7-5.1 [facility] Comment on above: Order Comment: Speci men Type: BLOOD SPECIMENOrdering Facility: [facility] Address: [address] [place] [address] Performed By: #### 2 4323-8, 9, 78134-0, 2275-4 ####[facility] [id number] [place] [id number] [place] Protein [Mass/Vol] 6.0 g/dL Low 6.3-8.0 [facility] Comment on above: Order Comment: Adelaida agudelo Type: BLOOD SPECIMENOrdering Facility: [facility] Address: [address] [place] [address] Performed By: #### 2 4323-8, 9, 47929-5, 2275-4 ####[facility] LABIA [id number] [place] [id number] [place] Sodium [Moles/Vol] 132 mmol/L Low 136-144 [facility] Comment on above: Order Comment: Speci men Type: BLOOD SPECIMENOrdering Facility: [facility] Address: [address] [place] [address] Performed By: #### 2 4323-8, 9, 30867-8, 2275-4 ####[facility] LABCLIA [id number] [place] [id number] [place] Urea nitrogen [Mass/Vol] 14 mg/dL Normal 7-21 [facility] Comment on above: Order Comment: Speci men Type: BLOOD SPECIMENOrdering Facility: [facility] Address: [address] [place] [address] Performed By: #### 2 4323-8, 2131-9, 01747-1, 2275-4 ####[facility] LABCLIA [id number] [place] [id number] [place] Ferritin SerPl-ncon 2023 Ferritin [Mass/Vol] 37.0 ng/mL Normal 14.7-205.1 [facility] Comment on above: Order Comment: Speci men Type: BLOOD SPECIMENOrdering Facility: [facility] Address: [address] [place] [address] Performed By: #### 2 4323-8, 9, 55884-7, 4 ####[facility] LABCLIA [id number] [place] [id number] [place] Iron and Iron binding capaci panelon 04-12-2024 Iron [Mass/Vol] 194 ug/dL High 41-186 [facility] Comment on above: Order Comment: Speci men Type: BLOOD SPECIMENOrdering Facility: [facility] Address: [address] [place] [address] Performed By: #### 2 4323-8, 2-9, 40472-8, 2275-4 ####[facility] LABCLIA [id number] [place] [id number] [place] Iron binding capacity [Mass/Vol] 346 ug/dL Normal 232-386 [facility] Comment on above: Order Comment: Speci men Type: BLOOD SPECIMENOrdering Facility: [facility] Address: [address] [place] [address] Performed By: #### 2 4323-8, 2-9, 23690-1, 2276-4 ####[facility] LABCLIA [id number] [address] [address] [place] Iron/TIBC [Molar ratio] 56.1 % Normal 15.0-57.0 C [facility] Comment on above: Order Comment: Speci men Type: BLOOD SPECIMENOrdering Facility: [facility] Address: [address] [place], [place] [address] Performed By: #### 2 4323-8, 2-9, 35598-4, 6-4 ####[facility] LABCLIA [id number] [place] [id number] [place] Vit B12 [facility]2 024 Cobalamin (Vitamin B12) [Mass/Vol] 506 pg/mL Normal 232-1245 [facility] Comment on above: Order Comment: Speci men Type: BLOOD SPECIMENOrdering Facility: [facility] Address: [address] [place], [place] [address] Performed By: #### 2 4323-8, 2131-9, 48325-7, 6-4 ####[facility] LABCLIA [id number] [address] [address] [place] Basic Metabolic Profile (BMP )on 03-28-2024 BUN/CRE 23.4 RATIO High 10-20 [facility] Comment on above: Performed By: #### L 500.4050, L100.0100 #### [facility] [address] [place], [address] CA,Total 8.6 mg/dL Normal 8.5-10.1 [facility] Comment on above: Performed By: #### L 500.4050, L100.0100 #### [facility] [address] [place], [address] Chloride [Moles/Vol] 94 mmol/L Low 98-[address] [facility] Comment on above: Performed By: #### L 500.4050, L100.0100 #### [facility] [address] [place], [address] CO2 [Moles/Vol] 25.0 mmol/L Normal 21.0-32.0 [facility] Comment on above: Performed By: #### L 500.4050, L100.0100 #### [facility] [address] [place], [address] Creatinine [Mass/Vol] 0.90 mg/dL Normal 0.55-1.02 [facility] Comment on above: Result Comment: The validity of the calculated GFR GFRAA in patients over 70 years has not been determined. Clinical correlation is essential. Performed By: #### L 500.4050, L100.0100 #### [facility] [address] [place], [address] ECRCL 41.15 ml/min Normal [facility] Comment on above: Performed By: #### L 500.4050, L100.0100 #### [facility] [address] [place], [address] EST GFR - AA 77 mL/min Normal >60 [facility] Comment on above: Result Comment: Afri can [place] GFR Calc Performed By: #### L 500.4050, L100.0100 #### [facility] [address] [place], [address] GAP 9 Normal 5-15 [facility] Comment on above: Performed By: #### L 500.4050, L100.0100 #### [facility] [address] [place], [address] GFR/1.73 sq M.predicted among non-blacks MDRD (S/P/Bld) [Vol rate/Area] 64 mL/min/{1.73_m2} Normal >60 [facility] Comment on above: Result Comment: Non- GFR Calc Performed By: #### L 500.4050, L100.0100 #### [facility] [address] [place], [address] Glucose [Mass/Vol] 107 mg/dL High 74-106 [facility] Comment on above: Result Comment: Fast ing Glucose result from 100 to 125 mg/dL suggests IMPAIRED HOMEOSTASIS per A.D.A. criteria. Performed By: #### L 500.4050, L100.0100 #### [facility] [address] [place], [address] Potassium [Moles/Vol] 3.7 mmol/L Normal 3.5-5.1 [facility] Comment on above: Performed By: #### L 500.4050, L100.0100 #### [facility] [address] [place], [address] Sodium [Moles/Vol] 128 mmol/L Low 136-145 [facility] Comment on above: Performed By: #### L 500.4050, L100.0100 #### [facility] [address] [place], [address] Urea nitrogen [Mass/Vol] 21 mg/dL High 7-18 [facility] Comment on above: Performed By: #### L 500.4050, L100.0100 #### [facility] [address] [place], [address] Basic Metabolic Profile (BMP )on 03-17-2024 BUN Normal -18 [facility] Comment on above: Result Comment: PT N EVER SHOWED Performed By: #### L 500.4050, L100.0100 #### [facility] [address] [place], [address] BUN/CRE Normal 10-20 [facility] Comment on above: Result Comment: PT N EVER SHOWED Performed By: #### L 500.4050, L100.0100 #### [facility] [address] [place], [address] CA,Total Normal 8.5-10.1 [facility] Comment on above: Result Comment: PT N EVER SHOWED Performed By: #### L 500.4050, L100.0100 #### [facility] [address] [place], [address] CL Normal 98-107 [facility] Comment on above: Result Comment: PT N EVER SHOWED Performed By: #### L 500.4050, L100.0100 #### [facility] [address] [place], [address] CO2 Normal 21.0-32.0 [facility] Comment on above: Result Comment: PT N EVER SHOWED Performed By: #### L 500.4050, L100.0100 #### [facility] [address] [place], [address] CREAT,SERUM Normal 0.55-1.02 [facility] Comment on above: Result Comment: PT N EVER SHOWED Performed By: #### L 500.4050, L100.0100 #### [facility] [address] [place], [address] EST GFR Normal >60 [facility] Comment on above: Result Comment: PT N EVER SHOWED Performed By: #### L 500.4050, L100.0100 #### [facility] [address] [place], [address] EST GFR - AA Normal >60 [facility] Comment on above: Result Comment: PT N EVER SHOWED Performed By: #### L 500.4050, L100.0100 #### [facility] [address] [place], [address] GAP Normal 5-15 [facility] Comment on above: Result Comment: PT N EVER SHOWED Performed By: #### L 500.4050, L100.0100 #### [facility] [address] [place], [address] GLU Normal 74-106 [facility] Comment on above: Result Comment: PT N EVER SHOWED Performed By: #### L 500.4050, L100.0100 #### [facility] [address] [place], [address] Potassium Normal 3.5-5.1 [facility] Comment on above: Result Comment: PT N EVER SHOWED Performed By: #### L 500.4050, L100.0100 #### [facility] [address] [place], [address] Basic Metabolic Profile (BMP) Normal 136-145 [facility] Comment on above: Result Comment: PT N EVER SHOWED Performed By: #### L 500.4050, L100.0100 #### [facility] [address] [place], [address] Investment Broker Office Visit Reporton 03-08-2024 Investment Broker Office Visit Report [facility] 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 Normal [facility] Sodium Levelon 03-08-2024 Sodium [Moles/Vol] 127 mmol/L Low 136-145 [facility] Comment on above: Performed By: #### L 500.4050, L100.0100 #### [facility] [address] [place], [place], [address] Neurology Visit Reporton Neurology Visit Report [facility] [address] [facility], [address] [place], [place] [address] OFFICE VISIT Date of Service: 03/03/24 MR#: [id number] Acct: [id number] Name: ROSANA MAKI Rep #: [id number] : 1940 Provider: Dr. Erick seymour MD Age/Sex: 84/F Location: [facility] Status: Signed Intake Vital Signs 09/22/23 07:56 [...] Visit Reasons: 4 M FU Chief Complaint: Nut Process Helper Required: No Accompanied by: Self Allergies cantaloupe [...] may cause QTc prolongation. 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 She has reduced her fluid intake and has u (more content not included)... Normal [facility] Absolute lymphocyte countOrd ered By: Vinh Colon on 01-23-2024 Lymphocytes Auto (Unsp spec) [#/Vol] 1.51 10*3/uL 0.83-4.51 [facility] Automated lymphocyte count a s percentage of total leukocytesOrdered By: Vinh Colon on 01-23-2024 Lymphocytes/100 WBC Auto (Unsp spec) 30.0 % 19-41 [facility] Basophil percentageOrdered B y: Vinh Colon on 01-23-2024 Basophils/100 WBC (Bld) 0.8 % 0-1 [facility] Chloride [Moles/Vol] 94 mmol/L 98-107 [facility] Eosinophils/100 WBC (Bld) 0.4 % 0-5 [facility] Glucose [Mass/Vol] 141 mg/dL 74-106 [facility] Comment on above: Fasting Glucose resu lt greater than or equal to 126 mg/dL suggests DIABETES MELLITUS per A.D.A. criteria. Hemoglobin (Bld) [Mass/Vol] 11.6 g/dL 12.0-15.0 [facility] Monocytes/100 WBC (Bld) 5.2 % 0-10 [facility] Neutrophils (Bld) [#/Vol] 3.2 10*3/uL 2.0-7.7 [facility] Neutrophils/100 WBC (Bld) 63.4 % 47-70 [facility] Potassium [Moles/Vol] 3.5 mmol/L 3.5-5.1 [facility] Sodium [Moles/Vol] 128 mmol/L 136-145 [facility] WBC (Bld) [#/Vol] 5.0 10*3/uL 4.4-11.0 [facility] Determination of erythrocyte mean corpuscular volume (MCV)Ordered By: Vinh Colon on 01-23-2024 MCV (RBC) [Entitic vol] 87.4 fL 81-99 [facility] Erythrocyte distribution wid th ratioOrdered By: Vinh Colon on 01-23-2024 Erythrocyte distribution width (RBC) [Ratio] 14.6 % 11.6-14.6 [facility] Erythrocyte distribution wid th standard deviationOrdered By: Vinh Colon on 01-23-2024 Erythrocyte distribution width (RBC) [Entitic vol] 46.9 fL 35.1-43.9 [facility] Hematocrit Auto (Bld) [Volum e fraction]Ordered By: Vinh Colon on 01-23-2024 Hematocrit (Bld) [Volume fraction] 34.7 % 37-47 [facility] Immature granulocytes/100 WB C Auto (Bld)Ordered By: Vinh Colon on 01-23-2024 Immature granulocytes/100 WBC (Bld) 0.200 % 0.0-0.9 [facility] Comment on above: IG% - Immature Granu locytes (promyelocytes, myelocytes and metamyelocytes) > 1% indicates that a LEFT SHIFT is Present. Laboratory - Chemistry and C hemistry - challengeOrdered By: Vinh Colon on 01-23-2024 CO2 [Moles/Vol] 25.0 mmol/L 21.0-32.0 [facility] Urea nitrogen/Creatinine [Mass ratio] 20.0 mg/mg 10-20 [facility] - Hematology and Cell countsOrdered By: Vinh Colon on 01-23-2024 MCH (RBC) [Entitic mass] 29.2 pg 27.0-32.0 [facility] MCHC (RBC) [Mass/Vol] 33.4 g/dL 32-36 [facility] Nucleated RBC/100 WBC (Bld) [Ratio] 0 % 0-5 [facility] Platelet mean volume (Bld) [Entitic vol] 9.0 fL 6.2-12.0 [facility] Platelets (Bld) [#/Vol] 286 10*3/uL 150-450 [facility] No Panel InformationOrdered By: Vinh Colon on 01-23-2024 Estimated Creatinine Clearance Calc 43.88 ml/min [facility] Estimated GFR (MDRD) Amer 83 mL/min >60 [facility] Comment on above: GFR Calc Estimated GFR (MDRD) Non-Af Amer 68 mL/min >60 [facility] Comment on above: Non- GFR Calc RBC Auto (Bld) [#/Vol]Ordere d By: Vinh Colon on 01-23-2024 RBC (Bld) [#/Vol] 3.97 10*6/uL 4.2-5.4 [facility] Serum or plasma calcium glo urement (mass/volume)Ordered By: Vinh Colon on 01-23-2024 Calcium [Mass/Vol] 9.0 mg/dL 8.5-10.1 [facility] Serum or plasma creatinine m easurement (mass/volume)Ordered By: Vinh Colon on 01-23-2024 Creatinine [Mass/Vol] 0.85 mg/dL 0.55-1.02 [facility] Comment on above: The validity of the calculated GFR & GFRAA in patients over 70 years has not been determined. Clinical correlation is essential. Serum or plasma urea nitroge n measurement (mass/volume)Ordered By: Vinh Colon on 01-23-2024 Urea nitrogen [Mass/Vol] 17 mg/dL 7-18 [facility] Thin prep Papanicolaou smear with manual screeningOrdered By: Vinh Colon on 01-23-2024 Thin prep Papanicolaou smear with manual screening 9 5-15 [facility] Basophil percentageOrdered B y: Eagle Enciso on 12-18-2023 Chloride [Moles/Vol] 101 mmol/L 98-107 [facility] Glucose [Mass/Vol] 85 mg/dL 74-106 [facility] Potassium [Moles/Vol] 4.1 mmol/L 3.5-5.1 [facility] Sodium [Moles/Vol] 134 mmol/L 136-145 [facility] Laboratory - Chemistry and C hemistry - challengeOrdered By: Eagle Enciso on 12-18-2023 CO2 [Moles/Vol] 28.0 mmol/L 21.0-32.0 [facility] Urea nitrogen/Creatinine [Mass ratio] 19.9 mg/mg 10-20 [facility] No Panel InformationOrdered By: Eagle Enciso on 12-18-2023 Estimated GFR (MDRD) Amer 88 mL/min >60 [facility] Comment on above: GFR Calc Estimated GFR (MDRD) Non-Af Amer 73 mL/min >60 [facility] Comment on above: Non- GFR Calc Serum or plasma calcium glo urement (mass/volume)Ordered By: Eagle Enciso on 12-18-2023 Calcium [Mass/Vol] 8.8 mg/dL 8.5-10.1 [facility] Serum or plasma creatinine m easurement (mass/volume)Ordered By: Eagle Enciso on 12-18-2023 Creatinine [Mass/Vol] 0.80 mg/dL 0.55-1.02 [facility] Comment on above: The validity of the calculated GFR & GFRAA in patients over 70 years has not been determined. Clinical correlation is essential. Serum or plasma urea nitroge n measurement (mass/volume)Ordered By: Eagle Enciso on 12-18-2023 Urea nitrogen [Mass/Vol] 16 mg/dL 7-18 [facility] Thin prep Papanicolaou smear with manual screeningOrdered By: Eagle Enciso on 12-18-2023 Thin prep Papanicolaou smear with manual screening 5 5-15 [facility] Absolute lymphocyte countOrd ered By: Mayur Tabares on 12-08-2023 Lymphocytes Auto (Unsp spec) [#/Vol] 0.60 10*3/uL 0.83-4.51 [facility] Automated lymphocyte count a s percentage of total leukocytesOrdered By: Mayur Tabares on 12-08-2023 Lymphocytes/100 WBC Auto (Unsp spec) 18.8 % 19-41 [facility] Basophil percentageOrdered B y: Mayur Tabares on 12-08-2023 Basophils/100 WBC (Bld) 0.3 % 0-1 [facility] Chloride [Moles/Vol] 98 mmol/L 98-107 [facility] Eosinophils/100 WBC (Bld) 0.9 % 0-5 [facility] Glucose [Mass/Vol] 114 mg/dL 74-106 [facility] Comment on above: Fasting Glucose resu lt from 100 to 125 mg/dL suggests IMPAIRED HOMEOSTASIS per A.D.A. criteria. Hemoglobin (Bld) [Mass/Vol] 11.3 g/dL 12.0-15.0 [facility] Monocytes/100 WBC (Bld) 7.2 % 0-10 [facility] Neutrophils (Bld) [#/Vol] 2.3 10*3/uL 2.0-7.7 [facility] Neutrophils/100 WBC (Bld) 72.5 % 47-70 [facility] Potassium [Moles/Vol] 3.9 mmol/L 3.5-5.1 [facility] Sodium [Moles/Vol] 130 mmol/L 136-145 [facility] WBC (Bld) [#/Vol] 3.2 10*3/uL 4.4-11.0 [facility] Basophil percentage 50-100 SEEN /hpf 0-5 [facility] Bilirubin Test strip Ql (U)O rdered By: Mayur Tabares on 12-08-2023 Bilirubin Ql (U) Negative Negative [facility] Blood manual differential co mment interpretation (narrative result)Ordered By: Mayur Tabares on 12-08-2023 Manual differential comment Inocencio (Bld) [Interp] SEE COMMENT [facility] Comment on above: LYMPHOPENIA NOTED Blood platelet adequacy dete ction by light microscopyOrdered By: Mayur Tabares on 12-08-2023 Platelets LM Ql (Bld) ADEQUATE ADEQ [facility] Culture, urineOrdered By: Getachew Tabares on 12-08-2023 Bacteria identified Cx Nom (U) Positive [facility] Determination of erythrocyte mean corpuscular volume (MCV)Ordered By: Mayur Tabares on 12-08-2023 MCV (RBC) [Entitic vol] 88.2 fL 81-99 [facility] Erythrocyte distribution wid th ratioOrdered By: Mayur Tabares on 12-08-2023 Erythrocyte distribution width (RBC) [Ratio] 14.9 % 11.6-14.6 [facility] Erythrocyte distribution wid th standard deviationOrdered By: Mayur Tabares on 12-08-2023 Erythrocyte distribution width (RBC) [Entitic vol] 48.4 fL 35.1-43.9 [facility] Hematocrit Auto (Bld) [Volum e fraction]Ordered By: Mayur Tabares on 12-08-2023 Hematocrit (Bld) [Volume fraction] 33.6 % 37-47 [facility] Immature granulocytes/100 WB C Auto (Bld)Ordered By: Mayur Tabares on 12-08-2023 Immature granulocytes/100 WBC (Bld) 0.300 % 0.0-0.9 [facility] Comment on above: IG% - Immature Granu locytes (promyelocytes, myelocytes and metamyelocytes) > 1% indicates that a LEFT SHIFT is Present. Ketones Test strip Ql (U)Ord ered By: Mayur Tabares on 12-08-2023 Ketones Ql (U) 5 mg/dl Negative [facility] - Chemistry and C hemistry - challengeOrdered By: Mayur Tabares on 12-08-2023 CO2 [Moles/Vol] 25.0 mmol/L 21.0-32.0 [facility] Urea nitrogen/Creatinine [Mass ratio] 17.7 mg/mg 10-20 [facility] - Hematology and Cell countsOrdered By: Mayur Tabares on 12-08-2023 Anisocytosis Ql (Bld) RARE [facility] MCH (RBC) [Entitic mass] 29.7 pg 27.0-32.0 [facility] MCHC (RBC) [Mass/Vol] 33.6 g/dL 32-36 [facility] Nucleated RBC/100 WBC (Bld) [Ratio] 0 % 0-5 [facility] Platelet mean volume (Bld) [Entitic vol] 9.0 fL 6.2-12.0 [facility] Platelets (Bld) [#/Vol] 221 10*3/uL 150-450 [facility] - Microbiology an d Antimicrobial susceptibilityOrdered By: Mayur Tabares on 12-08-2023 SARS-CoV-2 (COVID-19) RNA MIGUEL ANGEL+probe Ql (Unsp spec) [facility] Macrocytes detectionOrdered By: Mayur Tabares on 12-08-2023 Macrocytes Ql (Bld) RARE [facility] Mucus LM Ql (Urine sed)Order ed By: Mayur Tabares on 12-08-2023 Mucus Ql (Urine sed) RARE /hpf [facility] Nitrite Test strip Ql (U)Ord ered By: Mayur Tabares on 12-08-2023 Nitrite Ql (U) Negative Negative [facility] No Panel InformationOrdered By: Mayur Tabares on 12-08-2023 Estimated Creatinine Clearance Calc 45.23 ml/min [facility] Estimated GFR (MDRD) Amer 83 mL/min >60 [facility] Comment on above: GFR Calc Estimated GFR (MDRD) Non-Af Amer 69 mL/min >60 [facility] Comment on above: Non- GFR Calc Urine RBC 0-5 SEEN /hpf 0-5 [facility] Ovalocyte detectionOrdered B y: Mayur Tabares on 12-08-2023 Ovalocytes LM Ql (Bld) RARE [facility] Protein Test strip Ql (U)Ord ered By: Mayur Tabares on 12-08-2023 Protein Ql (U) 15 mg/dl Negative [facility] RBC Auto (Bld) [#/Vol]Ordere d By: Mayur Tabares on 12-08-2023 RBC (Bld) [#/Vol] 3.81 10*6/uL 4.2-5.4 [facility] RBC morphologyOrdered By: Getachew Tabares on 12-08-2023 RBC morphology finding Nom (Bld) N CHROM NORMAL NORM C&C [facility] Review by pathologistOrdered By: Mayur Tabares on 12-08-2023 Pathologist review Inocencio (Unsp spec) [Interp] May foll [facility] Pathologist review Inocencio (Unsp spec) [Interp] Reviewed [facility] Comment on above: Previous reported re sult: Emily andrew Edited by: DIANA on 12/09/23:1625LEUKOPENIAClinical correlation necessary.Chi Patricia M.D. 12/09/23 AMENDED REPORT 12/09/23 1625 PATH REV previously reported as: Emily morales Serum or plasma calcium glo urement (mass/volume)Ordered By: Mayur Tabares on 12-08-2023 Calcium [Mass/Vol] 8.2 mg/dL 8.5-10.1 [facility] Serum or plasma creatinine m easurement (mass/volume)Ordered By: Mayur Tabares on 12-08-2023 Creatinine [Mass/Vol] 0.85 mg/dL 0.55-1.02 [facility] Comment on above: The validity of the calculated GFR & GFRAA in patients over 70 years has not been determined. Clinical correlation is essential. Serum or plasma urea nitroge n measurement (mass/volume)Ordered By: Mayur Tabares on 12-08-2023 Urea nitrogen [Mass/Vol] 15 mg/dL 7-18 [facility] Squamous epithelial cells de tection in urine sediment by light microscopyOrdered By: Mayur Tabares on 12-08-2023 Epithelial cells.squamous LM Ql (Urine sed) 0-5 SEEN /hpf 5-10 [facility] Thin prep Papanicolaou smear with manual screeningOrdered By: Mayur Tabares on 12-08-2023 Thin prep Papanicolaou smear with manual screening 7 5-15 [facility] Urine blood detectionOrdered By: Mayur Tabares on 12-08-2023 RBC Ql (U) 50 /ul Negative [facility] Urine clarityOrdered By: Barbara Tabares on 12-08-2023 Clarity (U) Cloudy Clear [facility] Urine color determinationOrd ered By: Mayur Tabares on 12-08-2023 Color (U) Yellow Yellow [facility] Urine glucose detectionOrder ed By: Mayur Tabares on 12-08-2023 Glucose Ql (U) Normal mg/dl Normal [facility] Urine leukocyte esterase det ection by dipstickOrdered By: Mayur Tabares on 12-08-2023 Leukocyte esterase Test strip Ql (U) 500 /ul Negative [facility] Urine pHOrdered By: Mayur wiggins on 12-08-2023 pH (U) 5.0 [pH] 5.0 - 8.0 [facility] Urine sediment bacteria coun t by microscopy (number/high power field)Ordered By: Mayur Tabares on 12-08-2023 Bacteria LM.HPF (Urine sed) [#/Area] 1 /[HPF] None Seen [facility] Urine specific gravity measu rementOrdered By: Mayur Tabares on 12-08-2023 Specific gravity (U) [Rel density] 1.015 1.002-1.03 0 [facility] Urine urobilinogen measureme ntOrdered By: Mayur Tabares on 12-08-2023 Urobilinogen Ql (U) 1 mg/dl Normal [facility] Absolute lymphocyte countOrd ered By: Michelle Hunt on 11-22-2023 Lymphocytes Auto (Unsp spec) [#/Vol] 1.14 10*3/uL 0.83-4.51 [facility] Automated lymphocyte count a s percentage of total leukocytesOrdered By: Michelle Hunt on 11-22-2023 Lymphocytes/100 WBC Auto (Unsp spec) 27.0 % 19-41 [facility] Basophil percentageOrdered B y: Michelle Gilbert on 11-22-2023 Basophils/100 WBC (Bld) 0.5 % 0-1 [facility] Bilirubin [Mass/Vol] 0.60 mg/dL 0.20-1.00 [facility] Comment on above: For patients on eltr ombopag therapy, use of Dimension [place] TBIL is not recommended. Chloride [Moles/Vol] 101 mmol/L 98-107 [facility] Eosinophils/100 WBC (Bld) 0.2 % 0-5 [facility] Glucose [Mass/Vol] 110 mg/dL 74-106 [facility] Comment on above: Fasting Glucose resu lt from 100 to 125 mg/dL suggests IMPAIRED HOMEOSTASIS per A.D.A. criteria. Hemoglobin (Bld) [Mass/Vol] 9.6 g/dL 12.0-15.0 [facility] Monocytes/100 WBC (Bld) 10.6 % 0-10 [facility] Neutrophils (Bld) [#/Vol] 2.6 10*3/uL 2.0-7.7 [facility] Neutrophils/100 WBC (Bld) 61.5 % 47-70 [facility] Potassium [Moles/Vol] 3.4 mmol/L 3.5-5.1 [facility] Protein [Mass/Vol] 5.4 g/dL 6.4-8.2 [facility] Sodium [Moles/Vol] 131 mmol/L 136-145 [facility] WBC (Bld) [#/Vol] 4.2 10*3/uL 4.4-11.0 [facility] Determination of erythrocyte mean corpuscular volume (MCV)Ordered By: Michelle Gilbert on 11-22-2023 MCV (RBC) [Entitic vol] 89.2 fL 81-99 [facility] Erythrocyte distribution wid th ratioOrdered By: [facility] on 11-22-2023 Erythrocyte distribution width (RBC) [Ratio] 14.0 % 11.6-14.6 [facility] Erythrocyte distribution wid th standard deviationOrdered By: Michelle Hunt on 11-22-2023 Erythrocyte distribution width (RBC) [Entitic vol] 46.0 fL 35.1-43.9 [facility] Hematocrit Auto (Bld) [Volum e fraction]Ordered By: Michelle Gilbert on 11-22-2023 Hematocrit (Bld) [Volume fraction] 28.8 % 37-47 [facility] Immature granulocytes/100 WB C Auto (Bld)Ordered By: Michelle Gilbert on 11-22-2023 Immature granulocytes/100 WBC (Bld) 0.200 % 0.0-0.9 [facility] Comment on above: IG% - Immature Granu locytes (promyelocytes, myelocytes and metamyelocytes) > 1% indicates that a LEFT SHIFT is Present. Iron measurement (mass/mass) Ordered By: Marty Bassett on 11-22-2023 Iron (Unsp spec) [Mass/Mass] 65 ug/dL 50-170 [facility] - Chemistry and C hemistry - challengeOrdered By: Michelle Gilbert on 11-22-2023 Albumin/Globulin [Mass ratio] 0.9 {ratio} 0.9-2.4 [facility] ALP [Catalytic activity/Vol] 57 U/L 45-117 [facility] ALT [Catalytic activity/Vol] 16 U/L 13-56 [facility] CO2 [Moles/Vol] 25.0 mmol/L 21.0-32.0 [facility] Globulin (S) [Mass/Vol] 2.9 g/dL 2.2-4.2 [facility] Urea nitrogen/Creatinine [Mass ratio] 12.3 mg/mg 10-20 [facility] - Chemistry and C hemistry - challengeOrdered By: Marty Bassett on 11-22-2023 Cobalamin (Vitamin B12) [Mass/Vol] 353 pg/mL 211-911 [facility] Ferritin [Mass/Vol] 8 ng/mL 8-252 [facility] Laboratory - Hematology and Cell countsOrdered By: Michelle Hunt on 11-22-2023 MCH (RBC) [Entitic mass] 29.7 pg 27.0-32.0 [facility] MCHC (RBC) [Mass/Vol] 33.3 g/dL 32-36 [facility] Nucleated RBC/100 WBC (Bld) [Ratio] 0 % 0-5 [facility] Platelet mean volume (Bld) [Entitic vol] 9.7 fL 6.2-12.0 [facility] Platelets (Bld) [#/Vol] 242 10*3/uL 150-450 [facility] No Panel InformationOrdered By: Michelle Hunt on 11-22-2023 Estimated Creatinine Clearance Calc 45.54 ml/min [facility] Estimated GFR (MDRD) Amer 98 mL/min >60 [facility] Comment on above: GFR Calc Estimated GFR (MDRD) Non-Af Amer 81 mL/min >60 [facility] Comment on above: Non- GFR Calc No Panel InformationOrdered By: Marty Bassett on 11-22-2023 Folate 12.30 ng/mL 3.1-55.4 [facility] Total Iron Binding Capacity 381 ug/dL 250-450 [facility] RBC Auto (Bld) [#/Vol]Ordere d By: Michelle Hunt on 11-22-2023 RBC (Bld) [#/Vol] 3.23 10*6/uL 4.2-5.4 [facility] Serum or plasma calcium glo urement (mass/volume)Ordered By: Michelle Hunt on 11-22-2023 Calcium [Mass/Vol] 7.1 mg/dL 8.5-10.1 [facility] Serum or plasma creatinine m easurement (mass/volume)Ordered By: Michelle Hunt on 11-22-2023 Creatinine [Mass/Vol] 0.73 mg/dL 0.55-1.02 [facility] Comment on above: The validity of the calculated GFR & GFRAA in patients over 70 years has not been determined. Clinical correlation is essential. Serum or plasma iron saturat ion measurement (mass fraction)Ordered By: Marty Bassett on 11-22-2023 Iron saturation [Mass fraction] 17.1 % 15.0-55.0 [facility] Serum or plasma urea nitroge n measurement (mass/volume)Ordered By: Michelle Hunt on 11-22-2023 Urea nitrogen [Mass/Vol] 9 mg/dL 7-18 [facility] Thin prep Papanicolaou smear with manual screeningOrdered By: Michelle Hunt on 11-22-2023 Thin prep Papanicolaou smear with manual screening 2.5 g/dL 3.2-5.0 [facility] Thin prep Papanicolaou smear with manual screening 17 U/L 15-37 [facility] Thin prep Papanicolaou smear with manual screening 5 5-15 [facility] Thin prep Papanicolaou smear with manual screeningOrdered By: Marty Bassett on 11-22-2023 Thin prep Papanicolaou smear with manual screening 265 mOsm/KG 280-301 [facility] Absolute lymphocyte countOrd ered By: ED PROVIDER on 11-21-2023 Lymphocytes Auto (Unsp spec) [#/Vol] 1.55 10*3/uL 0.83-4.51 [facility] Automated lymphocyte count a s percentage of total leukocytesOrdered By: ED PROVIDER on 11-21-2023 Lymphocytes/100 WBC Auto (Unsp spec) 32.0 % 19-41 [facility] Basophil percentageOrdered B y: Loraineus Ortez on 11-21-2023 Basophil percentage 0 SEEN /hpf 0-5 [facility] Basophil percentageOrdered B y: Michelle Hunt on 11-21-2023 Basophil percentage 2.5 mg/dL 2.5-4.9 [facility] Basophil percentageOrdered B y: ED PROVIDER on 11-21-2023 Basophils/100 WBC (Bld) 0.6 % 0-1 [facility] Bilirubin [Mass/Vol] 0.90 mg/dL 0.20-1.00 [facility] Comment on above: For patients on eltr ombopag therapy, use of Dimension [place] TBIL is not recommended. Chloride [Moles/Vol] 94 mmol/L 98-107 [facility] Eosinophils/100 WBC (Bld) 0.4 % 0-5 [facility] Glucose [Mass/Vol] 145 mg/dL 74-106 [facility] Comment on above: Fasting Glucose resu lt greater than or equal to 126 mg/dL suggests DIABETES MELLITUS per A.D.A. criteria. Hemoglobin (Bld) [Mass/Vol] 12.3 g/dL 12.0-15.0 [facility] Monocytes/100 WBC (Bld) 6.2 % 0-10 [facility] Neutrophils (Bld) [#/Vol] 2.9 10*3/uL 2.0-7.7 [facility] Neutrophils/100 WBC (Bld) 60.6 % 47-70 [facility] Potassium [Moles/Vol] 3.6 mmol/L 3.5-5.1 [facility] Protein [Mass/Vol] 7.3 g/dL 6.4-8.2 [facility] Sodium [Moles/Vol] 126 mmol/L 136-145 [facility] WBC (Bld) [#/Vol] 4.8 10*3/uL 4.4-11.0 [facility] Bilirubin Test strip Ql (U)O rdered By: Viet Ortez on 11-21-2023 Bilirubin Ql (U) Negative Negative [facility] Determination of erythrocyte mean corpuscular volume (MCV)Ordered By: ED PROVIDER on 11-21-2023 MCV (RBC) [Entitic vol] 86.9 fL 81-99 [facility] Erythrocyte distribution wid th ratioOrdered By: ED PROVIDER on 11-21-2023 Erythrocyte distribution width (RBC) [Ratio] 14.0 % 11.6-14.6 [facility] Erythrocyte distribution wid th standard deviationOrdered By: ED PROVIDER on 11-21-2023 Erythrocyte distribution width (RBC) [Entitic vol] 44.6 fL 35.1-43.9 [facility] Hematocrit Auto (Bld) [Volum e fraction]Ordered By: ED PROVIDER on 11-21-2023 Hematocrit (Bld) [Volume fraction] 36.4 % 37-47 [facility] Immature granulocytes/100 WB C Auto (Bld)Ordered By: ED PROVIDER on 11-21-2023 Immature granulocytes/100 WBC (Bld) 0.200 % 0.0-0.9 [facility] Comment on above: IG% - Immature Granu locytes (promyelocytes, myelocytes and metamyelocytes) > 1% indicates that a LEFT SHIFT is Present. Ketones Test strip Ql (U)Ord ered By: Viet Ortez on 11-21-2023 Ketones Ql (U) 15 mg/dl Negative [facility] - Chemistry and C hemistry - challengeOrdered By: Marty Bassett on 11-21-2023 Sodium (U) [Moles/Vol] 147 mmol/L Not Establ. [facility] - Chemistry and C hemistry - challengeOrdered By: ED PROVIDER on 11-21-2023 Albumin/Globulin [Mass ratio] 0.8 {ratio} 0.9-2.4 [facility] ALP [Catalytic activity/Vol] 78 U/L 45-117 [facility] ALT [Catalytic activity/Vol] 21 U/L 13-56 [facility] CO2 [Moles/Vol] 23.0 mmol/L 21.0-32.0 [facility] Globulin (S) [Mass/Vol] 4.0 g/dL 2.2-4.2 [facility] Urea nitrogen/Creatinine [Mass ratio] 13.9 mg/mg 10-20 [facility] - Chemistry and C hemistry - challengeOrdered By: Michelle Hunt on 11-21-2023 Magnesium [Mass/Vol] 2.1 mg/dL 1.6-2.6 [facility] - Hematology and Cell countsOrdered By: ED PROVIDER on 11-21-2023 MCH (RBC) [Entitic mass] 29.4 pg 27.0-32.0 [facility] MCHC (RBC) [Mass/Vol] 33.8 g/dL 32-36 [facility] Nucleated RBC/100 WBC (Bld) [Ratio] 0 % 0-5 [facility] Platelet mean volume (Bld) [Entitic vol] 8.9 fL 6.2-12.0 [facility] Platelets (Bld) [#/Vol] 278 10*3/uL 150-450 [facility] Mucus LM Ql (Urine sed)Order ed By: Viet Ortez on 11-21-2023 Mucus Ql (Urine sed) 0 SEEN /hpf [facility] Nitrite Test strip Ql (U)Ord ered By: Viet Ortez on 11-21-2023 Nitrite Ql (U) Negative Negative [facility] No Panel InformationOrdered By: Viet Ortez on 11-21-2023 Urine RBC 0 SEEN /hpf 0-5 [facility] No Panel InformationOrdered By: ED PROVIDER on 11-21-2023 Estimated Creatinine Clearance Calc 45.81 ml/min [facility] Estimated GFR (MDRD) Amer 90 mL/min >60 [facility] Comment on above: GFR Calc Estimated GFR (MDRD) Non-Af Amer 74 mL/min >60 [facility] Comment on above: Non- GFR Calc Protein Test strip Ql (U)Ord ered By: Viet Ortez on 11-21-2023 Protein Ql (U) 15 mg/dl Negative [facility] RBC Auto (Bld) [#/Vol]Ordere d By: ED PROVIDER on 11-21-2023 RBC (Bld) [#/Vol] 4.19 10*6/uL 4.2-5.4 [facility] Serum or plasma calcium glo urement (mass/volume)Ordered By: ED PROVIDER on 11-21-2023 Calcium [Mass/Vol] 8.5 mg/dL 8.5-10.1 [facility] Serum or plasma creatinine m easurement (mass/volume)Ordered By: ED PROVIDER on 11-21-2023 Creatinine [Mass/Vol] 0.79 mg/dL 0.55-1.02 [facility] Comment on above: The validity of the calculated GFR & GFRAA in patients over 70 years has not been determined. Clinical correlation is essential. Serum or plasma urea nitroge n measurement (mass/volume)Ordered By: ED PROVIDER on 11-21-2023 Urea nitrogen [Mass/Vol] 11 mg/dL 7-18 [facility] Serum procalcitonin measurem entOrdered By: Michelle Hunt on 11-21-2023 Procalcitonin [Mass/Vol] 0.04 ng/mL 0.00-0.09 [facility] Comment on above: A procalcitonin (PCT [...] Ql (Urine sed) 0 SEEN /hpf 5-10 [facility] Thin prep Papanicolaou smear with manual screeningOrdered By: ED PROVIDER on 11-21-2023 Thin prep Papanicolaou smear with manual screening 3.3 g/dL 3.2-5.0 [facility] Thin prep Papanicolaou smear with manual screening 20 U/L 15-37 [facility] Thin prep Papanicolaou smear with manual screening 9 5-15 [facility] Urine blood detectionOrdered By: Viet Ortez on 11-21-2023 RBC Ql (U) 10 /ul Negative [facility] Urine clarityOrdered By: Loraine Ortez on 11-21-2023 Clarity (U) Clear Clear [facility] Urine color determinationOrd ered By: Viet Ortez on 11-21-2023 Color (U) Yellow Yellow [facility] Urine glucose detectionOrder ed By: Viet Ortez on 11-21-2023 Glucose Ql (U) 100 mg/dl Normal [facility] Urine leukocyte esterase det ection by dipstickOrdered By: Viet Ortez on 11-21-2023 Leukocyte esterase Test strip Ql (U) Negative Negative [facility] Urine osmolality measurement Ordered By: Marty Bassett on 11-21-2023 Osmolality (U) [Osmolality] 367 mOsm/KG >50 [facility] Comment on above: Normal Urine Referen ce Ranges Random: 50 - 1200 mOsm/kg H20 depending on fluid intake Random: >850 mOsm/kg after 12 hour fluid restriction 24 hour: ~300 - 900 mOsm/kg H2O Urine pHOrdered By: Viet Mahoney gur on 11-21-2023 pH (U) 8.0 [pH] 5.0 - 8.0 [facility] Urine sediment bacteria coun t by microscopy (number/high power field)Ordered By: Viet Ortez on 11-21-2023 Bacteria LM.HPF (Urine sed) [#/Area] 0 /[HPF] None Seen [facility] Urine specific gravity measu rementOrdered By: Viet Ortez on 11-21-2023 Specific gravity (U) [Rel density] 1.015 1.002-1.03 0 [facility] Urine urobilinogen measureme ntOrdered By: Viet Ortez on 11-21-2023 Urobilinogen Ql (U) Normal mg/dl Normal [facility] Respiratory pathogens detect ion panel by molecular detection methodOrdered By: Michelle Hunt on 11-20-2023 Respiratory pathogens DNA and RNA panel MIGUEL ANGEL+probe (Resp) [facility] CT Head WO contraston 2023 [facility] Absolute lymphocyte countOrd ered By: Tomeka Ascencio on 10-01-2023 Lymphocytes Auto (Unsp spec) [#/Vol] 1.70 10*3/uL 0.83-4.51 [facility] Automated lymphocyte count a s percentage of total leukocytesOrdered By: Tomeka Ascencio on 10-01-2023 Lymphocytes/100 WBC Auto (Unsp spec) 38.3 % 19-41 [facility] Basophil percentageOrdered B y: Tomeka Ascencio on 10-01-2023 Basophils/100 WBC (Bld) 0.9 % 0-1 [facility] Bilirubin [Mass/Vol] 0.60 mg/dL 0.20-1.00 [facility] Comment on above: For patients on eltr ombopag therapy, use of Dimension [place] TBIL is not recommended. Chloride [Moles/Vol] 102 mmol/L 98-107 [facility] Eosinophils/100 WBC (Bld) 2.3 % 0-5 [facility] Glucose [Mass/Vol] 95 mg/dL 74-106 [facility] Hemoglobin (Bld) [Mass/Vol] 11.6 g/dL 12.0-15.0 [facility] Monocytes/100 WBC (Bld) 11.0 % 0-10 [facility] Neutrophils (Bld) [#/Vol] 2.1 10*3/uL 2.0-7.7 [facility] Neutrophils/100 WBC (Bld) 47.5 % 47-70 [facility] Potassium [Moles/Vol] 4.0 mmol/L 3.5-5.1 [facility] Protein [Mass/Vol] 6.9 g/dL 6.4-8.2 [facility] Sodium [Moles/Vol] 132 mmol/L 136-145 [facility] WBC (Bld) [#/Vol] 4.4 10*3/uL 4.4-11.0 [facility] Determination of erythrocyte mean corpuscular volume (MCV)Ordered By: Tomeka Ascencio on 10-01-2023 MCV (RBC) [Entitic vol] 93.0 fL 81-99 [facility] Erythrocyte distribution wid th ratioOrdered By: Tomeka Ascencio on 10-01-2023 Erythrocyte distribution width (RBC) [Ratio] 14.6 % 11.6-14.6 [facility] Erythrocyte distribution wid th standard deviationOrdered By: Tomeka Ascencio on 10-01-2023 Erythrocyte distribution width (RBC) [Entitic vol] 49.8 fL 35.1-43.9 [facility] Hematocrit Auto (Bld) [Volum e fraction]Ordered By: Tomeka Ascencio on 10-01-2023 Hematocrit (Bld) [Volume fraction] 34.7 % 37-47 [facility] Immature granulocytes/100 WB C Auto (Bld)Ordered By: Tomeka Ascencio on 10-01-2023 Immature granulocytes/100 WBC (Bld) 0.000 % 0.0-0.9 [facility] Comment on above: IG% - Immature Granu locytes (promyelocytes, myelocytes and metamyelocytes) > 1% indicates that a LEFT SHIFT is Present. Laboratory - Chemistry and C hemistry - challengeOrdered By: Tomeka Ascencio on 10-01-2023 Albumin/Globulin [Mass ratio] 0.9 {ratio} 0.9-2.4 [facility] ALP [Catalytic activity/Vol] 73 U/L 45-117 [facility] ALT [Catalytic activity/Vol] 22 U/L 13-56 [facility] CO2 [Moles/Vol] 26.0 mmol/L 21.0-32.0 [facility] Globulin (S) [Mass/Vol] 3.7 g/dL 2.2-4.2 [facility] Urea nitrogen/Creatinine [Mass ratio] 15.5 mg/mg 10-20 [facility] Laboratory - Hematology and Cell countsOrdered By: Tomeka Ascencio on 10-01-2023 MCH (RBC) [Entitic mass] 31.1 pg 27.0-32.0 [facility] MCHC (RBC) [Mass/Vol] 33.4 g/dL 32-36 [facility] Nucleated RBC/100 WBC (Bld) [Ratio] 0 % 0-5 [facility] Platelets (Bld) [#/Vol] 243 10*3/uL 150-450 [facility] No Panel InformationOrdered By: Tomeka Ascencio on 10-01-2023 Estimated Creatinine Clearance Calc 36.37 ml/min [facility] Estimated GFR (MDRD) Amer 66 mL/min >60 [facility] Comment on above: GFR Calc Estimated GFR (MDRD) Non-Af Amer 55 mL/min >60 [facility] Comment on above: Non- GFR Calc Platelet mean volume Minor-Ec ker (Bld) [Entitic vol]Ordered By: Tomeka Ascencio on 10-01-2023 Platelet mean volume (Bld) [Entitic vol] 9.1 fL 6.2-12.0 [facility] RBC Auto (Bld) [#/Vol]Ordere d By: Tomeka Ascencio on 10-01-2023 RBC (Bld) [#/Vol] 3.73 10*6/uL 4.2-5.4 [facility] Serum or plasma calcium glo urement (mass/volume)Ordered By: Tomeka Ascencio on 10-01-2023 Calcium [Mass/Vol] 8.3 mg/dL 8.5-10.1 [facility] Serum or plasma creatinine m easurement (mass/volume)Ordered By: Tomeka Ascencio on 10-01-2023 Creatinine [Mass/Vol] 1.03 mg/dL 0.55-1.02 [facility] Comment on above: The validity of the calculated GFR & GFRAA in patients over 70 years has not been determined. Clinical correlation is essential. Serum or plasma urea nitroge n measurement (mass/volume)Ordered By: Tomeka Ascencio on 10-01-2023 Urea nitrogen [Mass/Vol] 16 mg/dL 7-18 [facility] Thin prep Papanicolaou smear with manual screeningOrdered By: Tomeka Ascencio on 10-01-2023 Thin prep Papanicolaou smear with manual screening 3.2 g/dL 3.2-5.0 [facility] Thin prep Papanicolaou smear with manual screening 24 U/L 15-37 [facility] Thin prep Papanicolaou smear with manual screening 4 5-15 [facility] Albumin Elph [Mass/Vol]Order ed By: Erick Blanca on 09-23-2023 Albumin [Mass/Vol] 3.2 g/dL 2.9-4.4 [facility] Basophil percentageOrdered B y: Erick Blanca on 09-23-2023 Basophil percentage Comment . [facility] Comment on above: No monoclonality det ected.Performed at: [facility] [id number] Director: Nicola Alex PhD, Phone: [phone] Interpretation of serum or p lasma protein pattern by immunofixation (narrative resultOrdered By: Erick Blanca on 09-23-2023 Protein Fractions Immunofixation Inocencio [Interp] Not Observed g/dL Not Observed [facility] No Panel InformationOrdered By: Erick Blanca on 09-23-2023 Addendum Document Comment . [facility] Comment on above: Protein electrophore sis scan will follow via computer,mail, or twx operator delivery. Serum [id number] measu rement by electrophoresisOrdered By: Erick Blanca on 09-23-2023 Alpha 1 globulin Elph [Mass/Vol] 0.3 g/dL 0.0-0.4 [facility] Alpha 1 globulin Elph [Mass/Vol] 0.7 g/dL 0.4-1.0 [facility] Serum globulin measurement ( mass/volume)Ordered By: Erick Blanca on 09-23-2023 Globulin (S) [Mass/Vol] 3.0 g/dL 2.2-3.9 [facility] Serum or plasma IgA measurem ent (mass/volume)Ordered By: Erick Blanca on 09-23-2023 IgA [Mass/Vol] 247 mg/dL 64-422 [facility] Serum or plasma IgG measurem ent (mass/volume)Ordered By: Erick Blanca on 09-23-2023 IgG [Mass/Vol] 989 mg/dL [id number] [facility] [facility] or plasma IgM measurem ent (mass/volume)Ordered By: Erick Blanca on 09-23-2023 IgM [Mass/Vol] 170 mg/dL 26-217 [facility] Serum or plasma beta globuli n measurement by electrophoresis (mass/volume)Ordered By: Erick Blanca on 09-23-2023 Beta globulin Elph [Mass/Vol] 0.9 g/dL 0.7-1.3 [facility] Serum or plasma gamma globul in measurement by electrophoresis (mass/volume)Ordered By: Erick Blanca on 09-23-2023 Gamma globulin Elph [Mass/Vol] 1.1 g/dL 0.4-1.8 [facility] Serum or plasma immunoelectr ophoresis interpretation (nominal result)Ordered By: Erick Blanac on 09-23-2023 Interpretation IEP [Interp] Comment . [facility] Comment on above: No monoclonality det ected. Thin prep Papanicolaou smear with manual screeningOrdered By: Erick Blanca on 09-23-2023 Thin prep Papanicolaou smear with manual screening 1.1 0.7-1.7 [facility] Total protein bloodOrdered B y: Erick Blanca on 09-23-2023 Protein [Mass/Vol] 6.2 g/dL 6.0-8.5 [facility] Absolute lymphocyte countOrd ered By: Cammie Barajas on 08-29-2023 Lymphocytes Auto (Unsp spec) [#/Vol] 1.53 10*3/uL 0.83-4.51 [facility] Basophil percentageOrdered B y: Cammie Barajas on 08-29-2023 Basophils/100 WBC (Bld) 1.0 % 0-1 [facility] Bilirubin [Mass/Vol] 0.90 mg/dL 0.20-1.00 [facility] Comment on above: For patients on eltr ombopag therapy, use of Dimension [place] TBIL is not recommended. Chloride [Moles/Vol] 96 mmol/L 98-107 [facility] Eosinophils/100 WBC (Bld) 1.0 % 0-5 [facility] Glucose [Mass/Vol] 134 mg/dL 74-106 [facility] Comment on above: Fasting Glucose resu lt greater than or equal to 126 mg/dL suggests DIABETES MELLITUS per A.D.A. criteria. Neutrophils (Bld) [#/Vol] 1.8 10*3/uL 2.0-7.7 [facility] Neutrophils/100 WBC (Bld) 45.1 % 47-70 [facility] Potassium [Moles/Vol] 3.5 mmol/L 3.5-5.1 [facility] Protein [Mass/Vol] 6.8 g/dL 6.4-8.2 [facility] Sodium [Moles/Vol] 131 mmol/L 136-145 [facility] WBC (Bld) [#/Vol] 4.0 10*3/uL 4.4-11.0 [facility] Blood erythrocytes count (nu mber/volume)Ordered By: Cammie Barajas on 08-29-2023 RBC (Bld) [#/Vol] 3.97 10*6/uL 4.2-5.4 [facility] Blood hemoglobin measurement (mass/volume)Ordered By: Cammie Barajas on 08-29-2023 Hemoglobin (Bld) [Mass/Vol] 12.0 g/dL 12.0-15.0 [facility] Blood lymphocytes/100 leukoc ytesOrdered By: Cammie Barajas on 08-29-2023 Lymphocytes/100 WBC (Bld) 38.3 % 19-41 [facility] Blood monocytes/100 leukocyt esOrdered By: Cammie Barajas on 08-29-2023 Monocytes/100 WBC (Bld) 14.3 % 0-10 [facility] Blood platelet mean volumeOr dered By: Cammie Barajas on 08-29-2023 Platelet mean volume (Bld) [Entitic vol] 9.5 fL 6.2-12.0 [facility] Determination of erythrocyte mean corpuscular volume (MCV)Ordered By: Cammie Barajas on 08-29-2023 MCV (RBC) [Entitic vol] 90.9 fL 81-99 [facility] Hematocrit Auto (Bld) [Volum e fraction]Ordered By: Cammie Barajas on 08-29-2023 Hematocrit (Bld) [Volume fraction] 36.1 % 37-47 [facility] - Chemistry and C hemistry - challengeOrdered By: Cammie Barajas on 08-29-2023 ALP [Catalytic activity/Vol] 59 U/L 45-117 [facility] ALT [Catalytic activity/Vol] 22 U/L 13-56 [facility] CO2 [Moles/Vol] 28.0 mmol/L 21.0-32.0 [facility] Globulin (S) [Mass/Vol] 3.6 g/dL 2.2-4.2 [facility] Urea nitrogen/Creatinine [Mass ratio] 16.3 mg/mg 10-20 [facility] - Hematology and Cell countsOrdered By: Cammie Barajas on 08-29-2023 Erythrocyte distribution width (RBC) [Entitic vol] 44.8 fL 35.1-43.9 [facility] Erythrocyte distribution width (RBC) [Ratio] 13.2 % 11.6-14.6 [facility] Immature granulocytes/100 WBC (Bld) 0.300 % 0.0-0.9 [facility] Comment on above: IG% - Immature Granu locytes (promyelocytes, myelocytes and metamyelocytes) > 1% indicates that a LEFT SHIFT is Present. MCH (RBC) [Entitic mass] 30.2 pg 27.0-32.0 [facility] Nucleated RBC/100 WBC (Bld) [Ratio] 0 % 0-5 [facility] MCHC Auto (RBC) [Mass/Vol]Or dered By: Cammie Barajas on 08-29-2023 MCHC (RBC) [Mass/Vol] 33.2 g/dL 32-36 [facility] No Panel InformationOrdered By: Cammie Barajas on 08-29-2023 Estimated GFR (MDRD) Amer 89 mL/min >60 [facility] Comment on above: GFR Calc Estimated GFR (MDRD) Non-Af Amer 73 mL/min >60 [facility] Comment on above: Non- GFR Calc Troponin I High Sensitivity 4 pg/mL 3.0-54.0 [facility] Comment on above: Please Note: New Latricia t Units and Gender Specific Reference Ranges. For more information see Policy Stat Procedure [place] High Sensitivity Troponin (TNIH) and attachments. Platelets bldOrdered By: Maximiliano Barajas on 08-29-2023 Platelets (Bld) [#/Vol] 289 10*3/uL 150-450 [facility] Serum or plasma albumin glo urement (mass/volume)Ordered By: Cammie Barajas on 08-29-2023 Albumin [Mass/Vol] 3.2 g/dL 3.2-5.0 [facility] Serum or plasma albumin/glob ulin mass ratioOrdered By: Cammie Barajas on 08-29-2023 Albumin/Globulin [Mass ratio] 0.9 {ratio} 0.9-2.4 [facility] Serum or plasma calcium glo urement (mass/volume)Ordered By: Cammie Barajas on 08-29-2023 Calcium [Mass/Vol] 8.2 mg/dL 8.5-10.1 [facility] Serum or plasma creatinine m easurement (mass/volume)Ordered By: Cammie Barajas on 08-29-2023 Creatinine [Mass/Vol] 0.80 mg/dL 0.55-1.02 [facility] Comment on above: The validity of the calculated GFR & GFRAA in patients over 70 years has not been determined. Clinical correlation is essential. Serum or plasma urea nitroge n measurement (mass/volume)Ordered By: Cammie Barajas on 08-29-2023 Urea nitrogen [Mass/Vol] 13 mg/dL 7-18 [facility] Thin prep Papanicolaou smear with manual screeningOrdered By: Cammie Barajas on 08-29-2023 Thin prep Papanicolaou smear with manual screening 21 U/L 15-37 [facility] Thin prep Papanicolaou smear with manual screening 7 5-15 [facility] Absolute lymphocyte countOrd ered By: Bakari Dietrich on 07-23-2023 Lymphocytes Auto (Unsp spec) [#/Vol] 1.23 10*3/uL 0.83-4.51 [facility] Basophil percentageOrdered B y: Bakari Dietrich on 07-23-2023 Basophils/100 WBC (Bld) 1.2 % 0-1 [facility] Chloride [Moles/Vol] 99 mmol/L 98-107 [facility] Eosinophils/100 WBC (Bld) 2.0 % 0-5 [facility] Glucose [Mass/Vol] 95 mg/dL 74-106 [facility] Neutrophils (Bld) [#/Vol] 1.6 10*3/uL 2.0-7.7 [facility] Neutrophils/100 WBC (Bld) 46.0 % 47-70 [facility] Potassium [Moles/Vol] 4.3 mmol/L 3.5-5.1 [facility] Sodium [Moles/Vol] 130 mmol/L 136-145 [facility] WBC (Bld) [#/Vol] 3.5 10*3/uL 4.4-11.0 [facility] Blood erythrocytes count (nu mber/volume)Ordered By: Bakari Dietrich on 07-23-2023 RBC (Bld) [#/Vol] 3.83 10*6/uL 4.2-5.4 [facility] Blood hemoglobin measurement (mass/volume)Ordered By: Bkaari Dietrich on 07-23-2023 Hemoglobin (Bld) [Mass/Vol] 11.7 g/dL 12.0-15.0 [facility] Blood lymphocytes/100 leukoc ytesOrdered By: Bakari Dietrich on 07-23-2023 Lymphocytes/100 WBC (Bld) 35.7 % 19-41 [facility] Blood monocytes/100 leukocyt esOrdered By: Bakari Dietrich on 07-23-2023 Monocytes/100 WBC (Bld) 14.8 % 0-10 [facility] Blood platelet mean volumeOr dered By: Bakari Dietrich on 07-23-2023 Platelet mean volume (Bld) [Entitic vol] 9.1 fL 6.2-12.0 [facility] Determination of erythrocyte mean corpuscular volume (MCV)Ordered By: Bakari Dietrich on 07-23-2023 MCV (RBC) [Entitic vol] 93.0 fL 81-99 [facility] Hematocrit Auto (Bld) [Volum e fraction]Ordered By: Bakari Dietrich on 07-23-2023 Hematocrit (Bld) [Volume fraction] 35.6 % 37-47 [facility] - Chemistry and C hemistry - challengeOrdered By: Bakari Dietrich on 07-23-2023 CO2 [Moles/Vol] 30.0 mmol/L 21.0-32.0 [facility] Urea nitrogen/Creatinine [Mass ratio] 17.3 mg/mg 10-20 [facility] - Hematology and Cell countsOrdered By: Bakari Dietrich on 07-23-2023 Erythrocyte distribution width (RBC) [Entitic vol] 45.9 fL 35.1-43.9 [facility] Erythrocyte distribution width (RBC) [Ratio] 13.4 % 11.6-14.6 [facility] Immature granulocytes/100 WBC (Bld) 0.300 % 0.0-0.9 [facility] Comment on above: IG% - Immature Granu locytes (promyelocytes, myelocytes and metamyelocytes) > 1% indicates that a LEFT SHIFT is Present. MCH (RBC) [Entitic mass] 30.5 pg 27.0-32.0 [facility] Nucleated RBC/100 WBC (Bld) [Ratio] 0 % 0-5 [facility] MCHC Auto (RBC) [Mass/Vol]Or dered By: Bakari Dietrich on 07-23-2023 MCHC (RBC) [Mass/Vol] 32.9 g/dL 32-36 [facility] No Panel InformationOrdered By: Bakari Dietrich on 07-23-2023 Estimated Creatinine Clearance Calc 44.03 ml/min [facility] Estimated GFR (MDRD) Amer 81 mL/min >60 [facility] Comment on above: GFR Calc Estimated GFR (MDRD) Non-Af Amer 67 mL/min >60 [facility] Comment on above: Non- GFR Calc Platelets bldOrdered By: Arik Dietrich on 07-23-2023 Platelets (Bld) [#/Vol] 233 10*3/uL 150-450 [facility] Serum or plasma calcium glo urement (mass/volume)Ordered By: Bakari Dietrich on 07-23-2023 Calcium [Mass/Vol] 8.1 mg/dL 8.5-10.1 [facility] Serum or plasma creatinine m easurement (mass/volume)Ordered By: Bakari Dietrich on 07-23-2023 Creatinine [Mass/Vol] 0.87 mg/dL 0.55-1.02 [facility] Comment on above: The validity of the calculated GFR & GFRAA in patients over 70 years has not been determined. Clinical correlation is essential. Serum or plasma urea nitroge n measurement (mass/volume)Ordered By: Bakari Dietrich on 07-23-2023 Urea nitrogen [Mass/Vol] 15 mg/dL 7-18 [facility] Thin prep Papanicolaou smear with manual screeningOrdered By: Bakari Dietrich on 07-23-2023 Thin prep Papanicolaou smear with manual screening 1 5-15 [facility] Absolute lymphocyte countOrd ered By: Tanesha Britt on 07-15-2023 Lymphocytes Auto (Unsp spec) [#/Vol] 1.49 10*3/uL 0.83-4.51 [facility] Basophil percentageOrdered B y: Tanesha Britt on 07-15-2023 Basophils/100 WBC (Bld) 1.1 % 0-1 [facility] Chloride [Moles/Vol] 97 mmol/L 98-107 [facility] Eosinophils/100 WBC (Bld) 2.8 % 0-5 [facility] Glucose [Mass/Vol] 88 mg/dL 74-106 [facility] Neutrophils (Bld) [#/Vol] 1.4 10*3/uL 2.0-7.7 [facility] Neutrophils/100 WBC (Bld) 39.6 % 47-70 [facility] Potassium [Moles/Vol] 4.4 mmol/L 3.5-5.1 [facility] Sodium [Moles/Vol] 131 mmol/L 136-145 [facility] WBC (Bld) [#/Vol] 3.6 10*3/uL 4.4-11.0 [facility] Blood erythrocytes count (nu mber/volume)Ordered By: Tanesha Britt on 07-15-2023 RBC (Bld) [#/Vol] 3.93 10*6/uL 4.2-5.4 [facility] Blood hemoglobin measurement (mass/volume)Ordered By: Tanesha Britt on 07-15-2023 Hemoglobin (Bld) [Mass/Vol] 12.3 g/dL 12.0-15.0 [facility] Blood lymphocytes/100 leukoc ytesOrdered By: Tanesha Britt on 07-15-2023 Lymphocytes/100 WBC (Bld) 41.3 % 19-41 [facility] Blood monocytes/100 leukocyt esOrdered By: Tanesha Britt on 07-15-2023 Monocytes/100 WBC (Bld) 15.2 % 0-10 [facility] Blood platelet mean volumeOr dered By: Tanesha Britt on 07-15-2023 Platelet mean volume (Bld) [Entitic vol] 8.7 fL 6.2-12.0 [facility] Determination of erythrocyte mean corpuscular volume (MCV)Ordered By: Tanesha Britt on 07-15-2023 MCV (RBC) [Entitic vol] 92.9 fL 81-99 [facility] Hematocrit Auto (Bld) [Volum e fraction]Ordered By: Tanesha Britt on 07-15-2023 Hematocrit (Bld) [Volume fraction] 36.5 % 37-47 [facility] - Chemistry and C hemistry - challengeOrdered By: Tanesha Britt on 07-15-2023 CO2 [Moles/Vol] 28.0 mmol/L 21.0-32.0 [facility] Urea nitrogen/Creatinine [Mass ratio] 16.4 mg/mg 10-20 [facility] - Hematology and Cell countsOrdered By: Tanesha Britt on 07-15-2023 Erythrocyte distribution width (RBC) [Entitic vol] 45.9 fL 35.1-43.9 [facility] Erythrocyte distribution width (RBC) [Ratio] 13.4 % 11.6-14.6 [facility] Immature granulocytes/100 WBC (Bld) 0.000 % 0.0-0.9 [facility] Comment on above: IG% - Immature Granu locytes (promyelocytes, myelocytes and metamyelocytes) > 1% indicates that a LEFT SHIFT is Present. MCH (RBC) [Entitic mass] 31.3 pg 27.0-32.0 [facility] Nucleated RBC/100 WBC (Bld) [Ratio] 0 % 0-5 [facility] MCHC Auto (RBC) [Mass/Vol]Or dered By: Tanesha Britt on 07-15-2023 MCHC (RBC) [Mass/Vol] 33.7 g/dL 32-36 [facility] No Panel InformationOrdered By: Tanesha Britt on 07-15-2023 Estimated GFR (MDRD) Amer 76 mL/min >60 [facility] Comment on above: GFR Calc Estimated GFR (MDRD) Non-Af Amer 62 mL/min >60 [facility] Comment on above: Non- GFR Calc Platelets bldOrdered By: Aura Britt on 07-15-2023 Platelets (Bld) [#/Vol] 240 10*3/uL 150-450 [facility] Serum or plasma calcium glo urement (mass/volume)Ordered By: Tanesha Britt on 07-15-2023 Calcium [Mass/Vol] 8.5 mg/dL 8.5-10.1 [facility] Serum or plasma creatinine m easurement (mass/volume)Ordered By: Tanesha Britt on 07-15-2023 Creatinine [Mass/Vol] 0.92 mg/dL 0.55-1.02 [facility] Comment on above: The validity of the calculated GFR & GFRAA in patients over 70 years has not been determined. Clinical correlation is essential. Serum or plasma urea nitroge n measurement (mass/volume)Ordered By: Tanesha Britt on 07-15-2023 Urea nitrogen [Mass/Vol] 15 mg/dL 7-18 [facility] Thin prep Papanicolaou smear with manual screeningOrdered By: Tanesha Britt on 07-15-2023 Thin prep Papanicolaou smear with manual screening 6 5-15 [facility] Basophil percentageOrdered B y: Eagle Enciso on 05-20-2023 Chloride [Moles/Vol] 94 mmol/L 98-107 [facility] Glucose [Mass/Vol] 82 mg/dL 74-106 [facility] Potassium [Moles/Vol] 4.1 mmol/L 3.5-5.1 [facility] Sodium [Moles/Vol] 126 mmol/L 136-145 [facility] Laboratory - Chemistry and C hemistry - challengeOrdered By: Eagle Enciso on 05-20-2023 CO2 [Moles/Vol] 26.0 mmol/L 21.0-32.0 [facility] Urea nitrogen/Creatinine [Mass ratio] 23.3 mg/mg 10-20 [facility] No Panel InformationOrdered By: Eagle Enciso on 05-20-2023 Estimated GFR (MDRD) Amer 87 mL/min >60 [facility] Comment on above: GFR Calc Estimated GFR (MDRD) Non-Af Amer 72 mL/min >60 [facility] Comment on above: Non- GFR Calc Serum or plasma calcium glo urement (mass/volume)Ordered By: Eagle Enciso on 05-20-2023 Calcium [Mass/Vol] 8.4 mg/dL 8.5-10.1 [facility] Serum or plasma creatinine m easurement (mass/volume)Ordered By: Eagle Enciso on 05-20-2023 Creatinine [Mass/Vol] 0.81 mg/dL 0.55-1.02 [facility] Comment on above: The validity of the calculated GFR & GFRAA in patients over 70 years has not been determined. Clinical correlation is essential. Serum or plasma urea nitroge n measurement (mass/volume)Ordered By: Eagle Enciso on 05-20-2023 Urea nitrogen [Mass/Vol] 19 mg/dL 7-18 [facility] Thin prep Papanicolaou smear with manual screeningOrdered By: Eagle Enciso on 05-20-2023 Thin prep Papanicolaou smear with manual screening 6 5-15 [facility] Basophil percentageOrdered B y: Cammie Barajas on 04-25-2023 Chloride [Moles/Vol] 95 mmol/L 98-107 [facility] Glucose [Mass/Vol] 144 mg/dL 74-106 [facility] Comment on above: Fasting Glucose resu lt greater than or equal to 126 mg/dL suggests DIABETES MELLITUS per A.D.A. criteria. Potassium [Moles/Vol] 3.6 mmol/L 3.5-5.1 [facility] Sodium [Moles/Vol] 128 mmol/L 136-145 [facility] - Chemistry and C hemistry - challengeOrdered By: Cammie Barajas on 04-25-2023 CO2 [Moles/Vol] 25.0 mmol/L 21.0-32.0 [facility] Urea nitrogen/Creatinine [Mass ratio] 17.8 mg/mg 10-20 [facility] No Panel InformationOrdered By: Cammie Barajas on 04-25-2023 Estimated Creatinine Clearance Calc 37.09 ml/min [facility] Estimated GFR (MDRD) Amer 98 mL/min >60 [facility] Comment on above: GFR Calc Estimated GFR (MDRD) Non-Af Amer 81 mL/min >60 [facility] Comment on above: Non- GFR Calc Serum or plasma calcium glo urement (mass/volume)Ordered By: Cammie Barajas on 04-25-2023 Calcium [Mass/Vol] 8.5 mg/dL 8.5-10.1 [facility] Serum or plasma creatinine m easurement (mass/volume)Ordered By: Cammie Barajas on 04-25-2023 Creatinine [Mass/Vol] 0.73 mg/dL 0.55-1.02 [facility] Comment on above: The validity of the calculated GFR & GFRAA in patients over 70 years has not been determined. Clinical correlation is essential. Serum or plasma urea nitroge n measurement (mass/volume)Ordered By: Cammie Barajas on 04-25-2023 Urea nitrogen [Mass/Vol] 13 mg/dL 7-18 [facility] Thin prep Papanicolaou smear with manual screeningOrdered By: Cammie Barajas on 04-25-2023 Thin prep Papanicolaou smear with manual screening 8 5-15 [facility] Comprehensive metabolic 2000 panelon 04-20-2023 Albumin [Mass/Vol] 3.8 g/dL Low 3.9 - 4.9 g/dL [facility] ALP [Catalytic activity/Vol] 64 U/L 34 - 123 U/L [facility] ALT [Catalytic activity/Vol] 16 U/L 7 - 38 U/L [facility] Anion gap [Moles/Vol] 10 mmol/L 9 - 18 mmol/L [facility] AST [Catalytic activity/Vol] 20 U/L 13 - 35 U/L [facility] Bilirubin [Mass/Vol] 0.5 mg/dL 0.2 - 1 .3 mg/dL [facility] Calcium [Mass/Vol] 9.1 mg/dL 8.5 - 10. 2 mg/dL [facility] Chloride [Moles/Vol] 97 mmol/L 97 - 10 5 mmol/L [facility] CO2 [Moles/Vol] 24 mmol/L 22 - 30 mmol/L [facility] Creatinine [Mass/Vol] 0.89 mg/dL 0.58 - 0.96 mg/[facility] Estimated Glomerular Filtration Rate 65 mL/min/1.73m >=60 mL/min/1.7 3m [facility] Glucose [Mass/Vol] 90 mg/dL 74 - 99 mg/[facility] Potassium [Moles/Vol] 4.6 mmol/L 3.7 - 5.1 mmol/L [facility] Protein [Mass/Vol] 6.4 g/dL 6.3 - 8.0 g/[facility] Sodium [Moles/Vol] 131 mmol/L Low 136 - 144 [facility] Urea nitrogen [Mass/Vol] 13 mg/dL 7 - 21 mg/[facility] XR Abdomen Supine and Uprigh ton 04-20-2023 IMPRESSION: Nonobstructive bowel gas pattern. Moderate stool burden. Staff Design Engineer: PSCB Transcribe Date/Time: Apr 20 2023 1:46P Dictated by : BRIGHT TIAN MD This examination was interpreted and the report reviewed and electronically signed by: BRIGHT TIAN MD on Apr 20 2023 1:47PM [facility] [[email or web address] DIVISION OF RADIOLOGY * * *Final Report* [...] colon. Osseous demineralization. DIVISION OF RADIOLOGY Provider, [facility] - 04/20/2023 * * *Final Report* * [...] Nonobstructive bowel gas pattern. Moderate stool burden. Staff Design Engineer: [email or web address] Transcribe Date/Time: Apr 20 2023 1:46P Dictated by : BRIGHT TIAN MD This examination was interpreted and the report reviewed and electronically signed by: BRIGHT TIAN MD on Apr 20 2023 1:47PM EST [facility] XR Abdomen Supine and Uprigh tOrdered By: [facility] Provider on 04-20-2023 [facility] XR Abdomen Supine and Uprigh ton 04-16-2023 Radiology Study observation (narrative) [facility] Basophil percentageOrdered B y: Erick Blanca on 04-11-2023 Bilirubin [Mass/Vol] 0.70 mg/dL 0.20-1.00 [facility] Comment on above: For patients on eltr ombopag therapy, use of Dimension [place] TBIL is not recommended. Chloride [Moles/Vol] 100 mmol/L 98-107 [facility] Glucose [Mass/Vol] 87 mg/dL 74-106 [facility] Potassium [Moles/Vol] 4.0 mmol/L 3.5-5.1 [facility] Protein [Mass/Vol] 6.5 g/dL 6.4-8.2 [facility] Sodium [Moles/Vol] 132 mmol/L 136-145 [facility] WBC (Bld) [#/Vol] 3.2 10*3/uL 4.4-11.0 [facility] Blood erythrocytes count (nu mber/volume)Ordered By: Erick Blanca on 04-11-2023 RBC (Bld) [#/Vol] 3.71 10*6/uL 4.2-5.4 [facility] Blood hemoglobin measurement (mass/volume)Ordered By: Erick Blanca on 04-11-2023 Hemoglobin (Bld) [Mass/Vol] 12.1 g/dL 12.0-15.0 [facility] Blood platelet mean volumeOr dered By: Erick Blanca on 04-11-2023 Platelet mean volume (Bld) [Entitic vol] 9.0 fL 6.2-12.0 [facility] Determination of erythrocyte mean corpuscular volume (MCV)Ordered By: Erick Blanca on 04-11-2023 MCV (RBC) [Entitic vol] 92.7 fL 81-99 [facility] Hematocrit Auto (Bld) [Volum e fraction]Ordered By: Erick Blanca on 04-11-2023 Hematocrit (Bld) [Volume fraction] 34.4 % 37-47 [facility] - Chemistry and C hemistry - challengeOrdered By: Erickluis Blanca on 04-11-2023 ALP [Catalytic activity/Vol] 65 U/L 45-117 [facility] ALT [Catalytic activity/Vol] 22 U/L 13-56 [facility] CO2 [Moles/Vol] 29.0 mmol/L 21.0-32.0 [facility] Cobalamin (Vitamin B12) [Mass/Vol] 317 pg/mL 211-911 [facility] Globulin (S) [Mass/Vol] 3.5 g/dL 2.2-4.2 [facility] Urea nitrogen/Creatinine [Mass ratio] 14.3 mg/mg 10-20 [facility] - Hematology and Cell countsOrdered By: Erick Blanca on 04-11-2023 Erythrocyte distribution width (RBC) [Entitic vol] 48.2 fL 35.1-43.9 [facility] Erythrocyte distribution width (RBC) [Ratio] 14.1 % 11.6-14.6 [facility] MCH (RBC) [Entitic mass] 32.6 pg 27.0-32.0 [facility] MCHC Auto (RBC) [Mass/Vol]Or dered By: Erick Blanca on 04-11-2023 MCHC (RBC) [Mass/Vol] 35.2 g/dL 32-36 [facility] No Panel InformationOrdered By: Erick Blanca on 04-11-2023 Estimated GFR (MDRD) Amer 84 mL/min >60 [facility] Comment on above: GFR Calc Estimated GFR (MDRD) Non-Af Amer 69 mL/min >60 [facility] Comment on above: Non- GFR Calc Free Lambda Light Chains, Quant 23.4 mg/L 5.7-26.3 [facility] Thyroid Stimulating Hormone (TSH) 1.83 uIU/mL 0.358-3.74 [facility] Whole Blood Vitamin B1 Level 86.7 nmol/L 66.5-200.0 [facility] Comment on above: Performed at: - [address] [id number] Director: Nicola Alex PhD, Phone: [phone] at: - [facility] [address] [id number] Director: Skylar Nichols MD, Phone: [phone] Platelets bldOrdered By: Jassi Blanca on 04-11-2023 Platelets (Bld) [#/Vol] 230 10*3/uL 150-450 [facility] Serum immunoglobulin kappa l ight chains/immunoglobulin lambda light chains mass ratioOrdered By: Erick Blanca on 04-11-2023 Immunoglobulin light chains.kappa/Immunoglob ulin light chains.lambda (S) [Mass ratio] 1.65 0.26-1.65 [facility] Serum or plasma albumin glo urement (mass/volume)Ordered By: Erick Blanca on 04-11-2023 Albumin [Mass/Vol] 3.0 g/dL 3.2-5.0 [facility] Serum or plasma albumin/glob ulin mass ratioOrdered By: Erick Blanca on 04-11-2023 Albumin/Globulin [Mass ratio] 0.9 {ratio} 0.9-2.4 [facility] Serum or plasma calcium glo urement (mass/volume)Ordered By: Erick Blanca on 04-11-2023 Calcium [Mass/Vol] 8.1 mg/dL 8.5-10.1 [facility] Serum or plasma creatinine m easurement (mass/volume)Ordered By: Erick Blanca on 04-11-2023 Creatinine [Mass/Vol] 0.84 mg/dL 0.55-1.02 [facility] Comment on above: The validity of the calculated GFR & GFRAA in patients over 70 years has not been determined. Clinical correlation is essential. Serum or plasma folate measu rement (mass/volume)Ordered By: Erick Blanca on 04-11-2023 Folate [Mass/Vol] 13.20 ng/mL 3.1-55.4 [facility] Serum or plasma immunoglobul in kappa light chains measurement (mass/volume)Ordered By: Erick Blanca on 04-11-2023 Immunoglobulin light chains.kappa [Mass/Vol] 38.5 mg/L 3.3-19.4 [facility] Serum or plasma urea nitroge n measurement (mass/volume)Ordered By: Erick Blanca on 04-11-2023 Urea nitrogen [Mass/Vol] 12 mg/dL 7-18 [facility] Thin prep Papanicolaou smear with manual screeningOrdered By: Erick Blanca on 04-11-2023 Thin prep Papanicolaou smear with manual screening 20 U/L 15-37 [facility] Thin prep Papanicolaou smear with manual screening 3 5-15 [facility] Absolute lymphocyte countOrd ered By: Denzel Boone on 04-08-2023 Lymphocytes Auto (Unsp spec) [#/Vol] 1.82 10*3/uL 0.83-4.51 [facility] Basophil percentageOrdered B y: Denzel Boone on 04-08-2023 Basophils/100 WBC (Bld) 0.7 % 0-1 [facility] Chloride [Moles/Vol] 96 mmol/L 98-107 [facility] Eosinophils/100 WBC (Bld) 1.0 % 0-5 [facility] Glucose [Mass/Vol] 90 mg/dL 74-106 [facility] Neutrophils (Bld) [#/Vol] 1.6 10*3/uL 2.0-7.7 [facility] Neutrophils/100 WBC (Bld) 40.4 % 47-70 [facility] Potassium [Moles/Vol] 3.9 mmol/L 3.5-5.1 [facility] Sodium [Moles/Vol] 129 mmol/L 136-145 [facility] WBC (Bld) [#/Vol] 4.0 10*3/uL 4.4-11.0 [facility] Blood erythrocytes count (nu mber/volume)Ordered By: Denzel Boone on 04-08-2023 RBC (Bld) [#/Vol] 3.90 10*6/uL 4.2-5.4 [facility] Blood hemoglobin measurement (mass/volume)Ordered By: Denzel Boone on 04-08-2023 Hemoglobin (Bld) [Mass/Vol] 12.4 g/dL 12.0-15.0 [facility] Blood lymphocytes/100 leukoc ytesOrdered By: Denzel Boone on 04-08-2023 Lymphocytes/100 WBC (Bld) 45.0 % 19-41 [facility] Blood monocytes/100 leukocyt esOrdered By: Denzel Boone on 04-08-2023 Monocytes/100 WBC (Bld) 12.9 % 0-10 [facility] Blood platelet mean volumeOr dered By: Denzel Boone on 04-08-2023 Platelet mean volume (Bld) [Entitic vol] 9.9 fL 6.2-12.0 [facility] Determination of erythrocyte mean corpuscular volume (MCV)Ordered By: Denzel Boone on 04-08-2023 MCV (RBC) [Entitic vol] 93.1 fL 81-99 [facility] Hematocrit Auto (Bld) [Volum e fraction]Ordered By: Denzel Boone on 04-08-2023 Hematocrit (Bld) [Volume fraction] 36.3 % 37-47 [facility] Laboratory - Chemistry and C hemistry - challengeOrdered By: Denzel Boone on 04-08-2023 CO2 [Moles/Vol] 29.0 mmol/L 21.0-32.0 [facility] Natriuretic peptide B (Bld) [Mass/Vol] 158.3 pg/mL 0-100 [facility] Urea nitrogen/Creatinine [Mass ratio] 17.2 mg/mg 10-20 [facility] Laboratory - Hematology and Cell countsOrdered By: Denzel Boone on 04-08-2023 Erythrocyte distribution width (RBC) [Entitic vol] 48.8 fL 35.1-43.9 [facility] Erythrocyte distribution width (RBC) [Ratio] 14.2 % 11.6-14.6 [facility] Immature granulocytes/100 WBC (Bld) 0.000 % 0.0-0.9 [facility] Comment on above: IG% - Immature Granu locytes (promyelocytes, myelocytes and metamyelocytes) > 1% indicates that a LEFT SHIFT is Present. MCH (RBC) [Entitic mass] 31.8 pg 27.0-32.0 [facility] Nucleated RBC/100 WBC (Bld) [Ratio] 0 % 0-5 [facility] MCHC Auto (RBC) [Mass/Vol]Or dered By: Denzel Boone on 04-08-2023 MCHC (RBC) [Mass/Vol] 34.2 g/dL 32-36 [facility] No Panel InformationOrdered By: Denzel Boone on 04-08-2023 Troponin I High Sensitivity 4 pg/mL 3.0-54.0 [facility] Comment on above: Please Note: New Latricia t Units and Gender Specific Reference Ranges. For more information see Policy Stat Procedure [place] High Sensitivity Troponin (TNIH) and attachments. Estimated Creatinine Clearance Calc 42.89 ml/min [facility] Estimated GFR (MDRD) Amer 80 mL/min >60 [facility] Comment on above: GFR Calc Estimated GFR (MDRD) Non-Af Amer 66 mL/min >60 [facility] Comment on above: Non- GFR Calc Platelets bldOrdered By: Hattie Boone on 04-08-2023 Platelets (Bld) [#/Vol] 248 10*3/uL 150-450 [facility] Serum or plasma calcium glo urement (mass/volume)Ordered By: Denzel Boone on 04-08-2023 Calcium [Mass/Vol] 8.3 mg/dL 8.5-10.1 [facility] Serum or plasma creatinine m easurement (mass/volume)Ordered By: Denzel Boone on 04-08-2023 Creatinine [Mass/Vol] 0.87 mg/dL 0.55-1.02 [facility] Comment on above: The validity of the calculated GFR & GFRAA in patients over 70 years has not been determined. Clinical correlation is essential. Serum or plasma urea nitroge n measurement (mass/volume)Ordered By: Denzel Boone on 04-08-2023 Urea nitrogen [Mass/Vol] 15 mg/dL 7-18 [facility] Thin prep Papanicolaou smear with manual screeningOrdered By: Denzel Boone on 04-08-2023 Thin prep Papanicolaou smear with manual screening 4 5-15 [facility] Basophil percentageOrdered B y: Dr. Enciso on 11-14-2022 Chloride [Moles/Vol] 96 mmol/L 98-107 [facility] Glucose [Mass/Vol] 87 mg/dL 74-106 [facility] Potassium [Moles/Vol] 4.2 mmol/L 3.5-5.1 [facility] Sodium [Moles/Vol] 133 mmol/L 136-145 [facility] Laboratory - Chemistry and C hemistry - challengeOrdered By: Dr. Enciso on 11-14-2022 CO2 [Moles/Vol] 30.0 mmol/L 21.0-32.0 [facility] Sodium (U) [Moles/Vol] 55 mmol/L Not Establ. [facility] Urea nitrogen/Creatinine [Mass ratio] 18.6 mg/mg 10-20 [facility] No Panel InformationOrdered By: Dr. Enciso on 11-14-2022 Estimated GFR (MDRD) Amer 88 mL/min >60 [facility] Comment on above: GFR Calc Estimated GFR (MDRD) Non-Af Amer 73 mL/min >60 [facility] Comment on above: Non- GFR Calc Serum or plasma calcium glo urement (mass/volume)Ordered By: Dr. Enciso on 11-14-2022 Calcium [Mass/Vol] 8.8 mg/dL 8.5-10.1 [facility] Serum or plasma creatinine m easurement (mass/volume)Ordered By: Dr. Enciso on 11-14-2022 Creatinine [Mass/Vol] 0.81 mg/dL 0.55-1.02 [facility] Comment on above: The validity of the calculated GFR & GFRAA in patients over 70 years has not been determined. Clinical correlation is essential. Serum or plasma urea nitroge n measurement (mass/volume)Ordered By: Dr. Enciso on 11-14-2022 Urea nitrogen [Mass/Vol] 15 mg/dL 7-18 [facility] Thin prep Papanicolaou smear with manual screeningOrdered By: Dr. Enciso on 11-14-2022 Thin prep Papanicolaou smear with manual screening 7 5-15 [facility] Urine osmolality measurement Ordered By: Dr. Enciso on 11-14-2022 Osmolality (U) [Osmolality] 288 mOsm/KG >50 [facility] Comment on above: Normal Urine Referen ce Ranges Random: 50 - 1200 mOsm/kg H20 depending on fluid intake Random: >850 mOsm/kg after 12 hour fluid restriction 24 hour: ~300 - 900 mOsm/kg H2O Absolute lymphocyte countOrd ered By: Dr. Nguyễn on 10-08-2022 Lymphocytes Auto (Unsp spec) [#/Vol] 1.63 10*3/uL 0.83-4.51 [facility] Basophil percentageOrdered B y: Dr. Nguyễn on 10-08-2022 Basophils/100 WBC (Bld) 0.8 % 0-1 [facility] Bilirubin [Mass/Vol] 0.60 mg/dL 0.20-1.00 [facility] Comment on above: For patients on eltr ombopag therapy, use of Dimension [place] TBIL is not recommended. Chloride [Moles/Vol] 99 mmol/L 98-107 [facility] Eosinophils/100 WBC (Bld) 2.6 % 0-5 [facility] Glucose [Mass/Vol] 84 mg/dL 74-106 [facility] Neutrophils (Bld) [#/Vol] 1.7 10*3/uL 2.0-7.7 [facility] Neutrophils/100 WBC (Bld) 42.0 % 47-70 [facility] Potassium [Moles/Vol] 4.0 mmol/L 3.5-5.1 [facility] Protein [Mass/Vol] 6.6 g/dL 6.4-8.2 [facility] Sodium [Moles/Vol] 132 mmol/L 136-145 [facility] WBC (Bld) [#/Vol] 3.9 10*3/uL 4.4-11.0 [facility] Blood erythrocytes count (nu mber/volume)Ordered By: Dr. Nguyễn on 10-08-2022 RBC (Bld) [#/Vol] 3.60 10*6/uL 4.2-5.4 [facility] Blood hemoglobin measurement (mass/volume)Ordered By: Dr. Nguyễn on 10-08-2022 Hemoglobin (Bld) [Mass/Vol] 11.5 g/dL 12.0-15.0 [facility] Blood lymphocytes/100 leukoc ytesOrdered By: Dr. Nguyễn on 10-08-2022 Lymphocytes/100 WBC (Bld) 41.6 % 19-41 [facility] Blood monocytes/100 leukocyt esOrdered By: Dr. Nguyễn on 10-08-2022 Monocytes/100 WBC (Bld) 13.0 % 0-10 [facility] Blood platelet mean volumeOr dered By: Dr. Nguyễn on 10-08-2022 Platelet mean volume (Bld) [Entitic vol] 9.1 fL 6.2-12.0 [facility] Determination of erythrocyte mean corpuscular volume (MCV)Ordered By: Dr. Nguyễn on 10-08-2022 MCV (RBC) [Entitic vol] 94.2 fL 81-99 [facility] Hematocrit Auto (Bld) [Volum e fraction]Ordered By: Dr. Nguyễn on 10-08-2022 Hematocrit (Bld) [Volume fraction] 33.9 % 37-47 [facility] Laboratory - Chemistry and C hemistry - challengeOrdered By: Dr. Nguyễn on 10-08-2022 ALP [Catalytic activity/Vol] 58 U/L 45-117 [facility] ALT [Catalytic activity/Vol] 22 U/L 13-56 [facility] CO2 [Moles/Vol] 28.0 mmol/L 21.0-32.0 [facility] Globulin (S) [Mass/Vol] 3.5 g/dL 2.2-4.2 [facility] Urea nitrogen/Creatinine [Mass ratio] 19.6 mg/mg 10-20 [facility] Laboratory - Hematology and Cell countsOrdered By: Dr. Nguyễn on 10-08-2022 Erythrocyte distribution width (RBC) [Entitic vol] 46.5 fL 35.1-43.9 [facility] Erythrocyte distribution width (RBC) [Ratio] 13.4 % 11.6-14.6 [facility] Immature granulocytes/100 WBC (Bld) 0.000 % 0.0-0.9 [facility] Comment on above: IG% - Immature Granu locytes (promyelocytes, myelocytes and metamyelocytes) > 1% indicates that a LEFT SHIFT is Present. MCH (RBC) [Entitic mass] 31.9 pg 27.0-32.0 [facility] Nucleated RBC/100 WBC (Bld) [Ratio] 0 % 0-5 [facility] MCHC Auto (RBC) [Mass/Vol]Or dered By: Dr. Nguyễn on 10-08-2022 MCHC (RBC) [Mass/Vol] 33.9 g/dL 32-36 [facility] No Panel InformationOrdered By: Dr. Nguyễn on 10-08-2022 Estimated Creatinine Clearance Calc 46.55 ml/min [facility] Estimated GFR (MDRD) Amer 87 mL/min >60 [facility] Comment on above: GFR Calc Estimated GFR (MDRD) Non-Af Amer 72 mL/min >60 [facility] Comment on above: Non- GFR Calc Platelets bldOrdered By: Dr. Nguyễn on 10-08-2022 Platelets (Bld) [#/Vol] 224 10*3/uL 150-450 [facility] Serum or plasma albumin glo urement (mass/volume)Ordered By: Dr. Nguyễn on 10-08-2022 Albumin [Mass/Vol] 3.1 g/dL 3.2-5.0 [facility] Serum or plasma albumin/glob ulin mass ratioOrdered By: Dr. Nguyễn on 10-08-2022 Albumin/Globulin [Mass ratio] 0.9 {ratio} 0.9-2.4 [facility] Serum or plasma calcium glo urement (mass/volume)Ordered By: Dr. Nguyễn on 10-08-2022 Calcium [Mass/Vol] 8.3 mg/dL 8.5-10.1 [facility] Serum or plasma creatinine m easurement (mass/volume)Ordered By: Dr. Nguyễn on 10-08-2022 Creatinine [Mass/Vol] 0.82 mg/dL 0.55-1.02 [facility] Comment on above: The validity of the calculated GFR & GFRAA in patients over 70 years has not been determined. Clinical correlation is essential. Serum or plasma urea nitroge n measurement (mass/volume)Ordered By: Dr. Nguyễn on 10-08-2022 Urea nitrogen [Mass/Vol] 16 mg/dL 7-18 [facility] Thin prep Papanicolaou smear with manual screeningOrdered By: Dr. Nguyễn on 10-08-2022 Thin prep Papanicolaou smear with manual screening 23 U/L 15-37 [facility] Thin prep Papanicolaou smear with manual screening 5 5-15 [facility] 2019 CORONAVIRUSon 2 SARS-CoV-2 (COVID-19) RNA MIGUEL ANGEL+probe Ql (Resp) SARS-CoV-2 (Agent of COVID-19) Detected by RT-PCR or equivalent method. Abnormal Not Detected [facility] UA DIP, URINE (POC)on 2021 BILIRUBIN UA (POCT) Small Abnormal Negative [facility] CLARITY U[facility] (POCT) [facility] COLOR UA (POCT) Yellow [facility] GLUCOSE UA (POCT) Negative Negative mg/dL [facility] HEMOGLOBIN/BLOOD UA (POCT) Moderate Abnormal Negative [facility] KETONE UA (POCT) Trace Negative mg/dL [facility] LEUKOCYTES UA (POCT) Trace [facility]normal [facility] NITRITE UA (POCT) Negative Negative [facility] PH UA (POCT) 6.0 4.5 - 8.0 [facility] Protein Ql (U) >=300 Abnormal Negative mg/dL [facility] SPECIFIC GRAVITY UA (POCT) 1.025 1.005 - 1.030 [facility] UROBILINOGEN UA (POCT) 0.2 E.U./dL Nilsa l E.U./dL [facility] Absolute lymphocyte countOrd ered By: Minesh Briones on 08-17-2022 Lymphocytes Auto (Unsp spec) [#/Vol] 1.90 10*3/uL 0.83-4.51 [facility] Basophil percentageOrdered B y: Minesh Briones on 08-17-2022 Basophils/100 WBC (Bld) 0.2 % 0-1 [facility] Bilirubin [Mass/Vol] 0.90 mg/dL 0.20-1.00 [facility] Comment on above: For patients on eltr ombopag therapy, use of Dimension [place] TBIL is not recommended. Chloride [Moles/Vol] 94 mmol/L 98-107 [facility] Eosinophils/100 WBC (Bld) 0.0 % 0-5 [facility] Glucose [Mass/Vol] 144 mg/dL 74-106 [facility] Comment on above: Fasting Glucose resu lt greater than or equal to 126 mg/dL suggests DIABETES MELLITUS per A.D.A. criteria. Neutrophils (Bld) [#/Vol] 3.9 10*3/uL 2.0-7.7 [facility] Neutrophils/100 WBC (Bld) 62.5 % 47-70 [facility] Potassium [Moles/Vol] 3.4 mmol/L 3.5-5.1 [facility] Protein [Mass/Vol] 7.6 g/dL 6.4-8.2 [facility] Sodium [Moles/Vol] 127 mmol/L 136-145 [facility] WBC (Bld) [#/Vol] 6.2 10*3/uL 4.4-11.0 [facility] Blood erythrocytes count (nu mber/volume)Ordered By: Minesh Briones on 08-17-2022 RBC (Bld) [#/Vol] 4.01 10*6/uL 4.2-5.4 [facility] Blood hemoglobin measurement (mass/volume)Ordered By: Minesh Briones on 08-17-2022 Hemoglobin (Bld) [Mass/Vol] 12.8 g/dL 12.0-15.0 [facility] Blood lymphocytes/100 leukoc ytesOrdered By: Minesh Briones on 08-17-2022 Lymphocytes/100 WBC (Bld) 30.5 % 19-41 [facility] Blood monocytes/100 leukocyt esOrdered By: Minesh Briones on 08-17-2022 Monocytes/100 WBC (Bld) 6.6 % 0-10 [facility] Blood platelet mean volumeOr dered By: Minesh Briones on 08-17-2022 Platelet mean volume (Bld) [Entitic vol] 10.2 fL 6.2-12.0 [facility] Determination of erythrocyte mean corpuscular volume (MCV)Ordered By: Minesh Briones on 08-17-2022 MCV (RBC) [Entitic vol] 92.0 fL 81-99 [facility] Direct bilirubinOrdered By: Minesh Briones on 08-17-2022 Bilirubin.direct [Mass/Vol] 0.23 mg/dL 0.00-0.30 [facility] Hematocrit Auto (Bld) [Volum e fraction]Ordered By: Minesh Briones on 08-17-2022 Hematocrit (Bld) [Volume fraction] 36.9 % 37-47 [facility] Influenza virus A and B and SARS-CoV-2 (COVID-19) Ag panel - Upper respiratory specimOrdered By: Minesh Briones on 08-17-2022 SARS-CoV-2 (COVID-19) RNA MIGUEL ANGEL+probe Ql (Resp) [facility] Laboratory - Chemistry and C hemistry - challengeOrdered By: Minesh Briones on 08-17-2022 ALP [Catalytic activity/Vol] 68 U/L 45-117 [facility] ALT [Catalytic activity/Vol] 28 U/L 13-56 [facility] CO2 [Moles/Vol] 25.0 mmol/L 21.0-32.0 [facility] Globulin (S) [Mass/Vol] 4.0 g/dL 2.2-4.2 [facility] Lipase [Catalytic activity/Vol] 143 U/L 73-393 [facility] Magnesium [Mass/Vol] 2.0 mg/dL 1.6-2.6 [facility] Urea nitrogen/Creatinine [Mass ratio] 16.1 mg/mg 10-20 [facility] Laboratory - Hematology and Cell countsOrdered By: Minesh Briones on 08-17-2022 Erythrocyte distribution width (RBC) [Entitic vol] 43.2 fL 35.1-43.9 [facility] Erythrocyte distribution width (RBC) [Ratio] 12.8 % 11.6-14.6 [facility] Immature granulocytes/100 WBC (Bld) 0.200 % 0.0-0.9 [facility] Comment on above: IG% - Immature Granu locytes (promyelocytes, myelocytes and metamyelocytes) > 1% indicates that a LEFT SHIFT is Present. MCH (RBC) [Entitic mass] 31.9 pg 27.0-32.0 [facility] Nucleated RBC/100 WBC (Bld) [Ratio] 0 % 0-5 [facility] MCHC Auto (RBC) [Mass/Vol]Or dered By: Minesh Briones on 08-17-2022 MCHC (RBC) [Mass/Vol] 34.7 g/dL 32-36 [facility] No Panel InformationOrdered By: Minesh Briones on 08-17-2022 Estimated Creatinine Clearance Calc 47.22 ml/min [facility] Estimated GFR (MDRD) Amer 88 mL/min >60 [facility] Comment on above: GFR Calc Estimated GFR (MDRD) Non-Af Amer 73 mL/min >60 [facility] Comment on above: Non- GFR Calc Troponin I High Sensitivity 8 pg/mL 3.0-54.0 [facility] Comment on above: Please Note: New Latricia t Units and Gender Specific Reference Ranges. For more information see Policy Stat Procedure [place] High Sensitivity Troponin (TNIH) and attachments. Platelets bldOrdered By: Rc Briones on 08-17-2022 Platelets (Bld) [#/Vol] 267 10*3/uL 150-450 [facility] Serum or plasma albumin glo urement (mass/volume)Ordered By: Minesh Briones on 08-17-2022 Albumin [Mass/Vol] 3.6 g/dL 3.2-5.0 [facility] Serum or plasma calcium glo urement (mass/volume)Ordered By: Minesh Briones on 08-17-2022 Calcium [Mass/Vol] 8.3 mg/dL 8.5-10.1 [facility] Serum or plasma creatinine m easurement (mass/volume)Ordered By: Minesh Briones on 08-17-2022 Creatinine [Mass/Vol] 0.81 mg/dL 0.55-1.02 [facility] Comment on above: The validity of the calculated GFR & GFRAA in patients over 70 years has not been determined. Clinical correlation is essential. Serum or plasma urea nitroge n measurement (mass/volume)Ordered By: Minesh Briones on 08-17-2022 Urea nitrogen [Mass/Vol] 13 mg/dL 7-18 [facility] Thin prep Papanicolaou smear with manual screeningOrdered By: Minesh Briones on 08-17-2022 Thin prep Papanicolaou smear with manual screening 25 U/L 15-37 [facility] Thin prep Papanicolaou smear with manual screening 8 5-15 [facility] US LEG VEIN DVT UNL VAS LABo n 07-11-2022 [facility] Laboratory - Microbiology an d Antimicrobial susceptibilityon 06-07-2022 SARS-CoV-2 (COVID-19) RNA MIGUEL ANGEL+probe Ql (Unsp spec) Not detected [facility] Work Phone: No Panel Informationon 06-07 Influenza Types A,B Rapid (Clinic) Not detected [facility] Work Phone: Iron measurement (mass/mass) on 05-29-2022 Iron (Unsp spec) [Mass/Mass] 97 ug/dL 50-170 [facility] Work Phone: Laboratory - Chemistry and C hemistry - challengeon 05-29-2022 Cobalamin (Vitamin B12) [Mass/Vol] 509 pg/mL 211-911 [facility] Work Phone: Serum or plasma ferritin she surement (mass/volume)on 05-29-2022 Ferritin [Mass/Vol] 20 ng/mL 8-252 [facility] Work Phone: Serum or plasma folate measu rement (mass/volume)on 05-29-2022 Folate [Mass/Vol] 12.90 ng/mL 3.1-55.4 [facility] Work Phone: [phone] Absolute lymphocyte counton 05-16-2022 Lymphocytes Auto (Unsp spec) [#/Vol] 1.03 10*3/uL 0.83-4.51 [facility] Work Phone: Basophil percentageon 2021 Basophils/100 WBC (Bld) 0.8 % 0-1 [facility] Work Phone: Chloride [Moles/Vol] 98 mmol/L 98-107 [facility] Work Phone: Eosinophils/100 WBC (Bld) 9.8 % 0-5 [facility] Work Phone: [phone] Glucose [Mass/Vol] 104 mg/dL 74-106 [facility] Work Phone: Comment on above: Fasting Glucose resu lt from 100 to 125 mg/dL suggests IMPAIRED HOMEOSTASIS per A.D.A. criteria. Neutrophils (Bld) [#/Vol] 1.6 10*3/uL 2.0-7.7 [facility] Work Phone: Neutrophils/100 WBC (Bld) 45.3 % 47-70 [facility] Work Phone: Potassium [Moles/Vol] 4.7 mmol/L 3.5-5.1 [facility] Work Phone: Sodium [Moles/Vol] 130 mmol/L 136-145 [facility] Work Phone: WBC (Bld) [#/Vol] 3.6 10*3/uL 4.4-11.0 [facility] Work Phone: [phone] Blood erythrocytes count (nu mber/volume)on 05-16-2022 RBC (Bld) [#/Vol] 3.54 10*6/uL 4.2-5.4 [facility] Work Phone: [phone] Blood hemoglobin measurement (mass/volume)on 05-16-2022 Hemoglobin (Bld) [Mass/Vol] 11.8 g/dL 12.0-15.0 [facility] Work Phone: Blood lymphocytes/100 leukoc yteson 05-16-2022 Lymphocytes/100 WBC (Bld) 28.9 % 19-41 [facility] Work Phone: Blood monocytes/100 leukocyt eson 05-16-2022 Monocytes/100 WBC (Bld) 14.9 % 0-10 [facility] Work Phone: [phone] Blood platelet mean volumeon 05-16-2022 Platelet mean volume (Bld) [Entitic vol] 9.7 fL 6.2-12.0 [facility] Work Phone: [phone] Determination of erythrocyte mean corpuscular volume (MCV)on 05-16-2022 MCV (RBC) [Entitic vol] 94.9 fL 81-99 [facility] Work Phone: [phone] Hematocrit Auto (Bld) [Volum e fraction]on 05-16-2022 Hematocrit (Bld) [Volume fraction] 33.6 % 37-47 [facility] Work Phone: [phone] Laboratory - Chemistry and C hemistry - challengeon 05-16-2022 CO2 [Moles/Vol] 26.0 mmol/L 21.0-32.0 [facility] Work Phone: [phone] Urea nitrogen/Creatinine [Mass ratio] 16.4 mg/mg 10-20 [facility] Work Phone: Laboratory - Hematology and Cell countson 05-16-2022 Erythrocyte distribution width (RBC) [Entitic vol] 48.6 fL 35.1-43.9 [facility] Work Phone: Erythrocyte distribution width (RBC) [Ratio] 13.7 % 11.6-14.6 [facility] Work Phone: Immature granulocytes/100 WBC (Bld) 0.300 % 0.0-0.9 [facility] Work Phone: Comment on above: IG% - Immature Granu locytes (promyelocytes, myelocytes and metamyelocytes) > 1% indicates that a LEFT SHIFT is Present. MCH (RBC) [Entitic mass] 33.3 pg 27.0-32.0 [facility] Work Phone: Nucleated RBC/100 WBC (Bld) [Ratio] 0 % 0-5 [facility] Work Phone: MCHC Auto (RBC) [Mass/Vol]on 05-16-2022 MCHC (RBC) [Mass/Vol] 35.1 g/dL 32-36 [facility] Work Phone: No Panel Informationon 05-16 Estimated GFR (MDRD) Amer 76 mL/min >60 [facility] Work Phone: Comment on above: GFR Calc Estimated GFR (MDRD) Non-Af Amer 63 mL/min >60 [facility] Work Phone: Comment on above: Non- GFR Calc Platelets bldon 05-16-2022 Platelets (Bld) [#/Vol] 255 10*3/uL 150-450 [facility] Work Phone: Serum or plasma calcium glo urement (mass/volume)on 05-16-2022 Calcium [Mass/Vol] 8.7 mg/dL 8.5-10.1 [facility] Work Phone: Serum or plasma creatinine m easurement (mass/volume)on 05-16-2022 Creatinine [Mass/Vol] 0.91 mg/dL 0.55-1.02 [facility] Work Phone: Comment on above: The validity of the calculated GFR & GFRAA in patients over 70 years has not been determined. Clinical correlation is essential. Serum or plasma urea nitroge n measurement (mass/volume)on 05-16-2022 Urea nitrogen [Mass/Vol] 15 mg/dL 7-18 [facility] Work Phone: [phone] Thin prep Papanicolaou smear with manual screeningon 05-16-2022 Thin prep Papanicolaou smear with manual screening 6 5-15 [facility] Work Phone: [phone] XR KNEE GENERAL 4V AP BOTH/P A BOTH/LAT/MERC RIGHTon 04-21-2022 [facility] Absolute lymphocyte counton 03-18-2022 Lymphocytes Auto (Unsp spec) [#/Vol] 1.99 10*3/uL 0.83-4.51 [facility] Work Phone: [phone] Basophil percentageon 2021 Basophils/100 WBC (Bld) 0.7 % 0-1 [facility] Work Phone: Chloride [Moles/Vol] 96 mmol/L 98-107 [facility] Work Phone: Eosinophils/100 WBC (Bld) 2.1 % 0-5 [facility] Work Phone: [phone] Glucose [Mass/Vol] 117 mg/dL 74-106 [facility] Work Phone: [phone] Comment on above: Fasting Glucose resu lt from 100 to 125 mg/dL suggests IMPAIRED HOMEOSTASIS per A.D.A. criteria. Neutrophils (Bld) [#/Vol] 1.7 10*3/uL 2.0-7.7 [facility] Work Phone: Neutrophils/100 WBC (Bld) 38.9 % 47-70 [facility] Work Phone: [phone] Potassium [Moles/Vol] 4.2 mmol/L 3.5-5.1 [facility] Work Phone: [phone] Sodium [Moles/Vol] 130 mmol/L 136-145 [facility] Work Phone: [phone] WBC (Bld) [#/Vol] 4.3 10*3/uL 4.4-11.0 [facility] Work Phone: Blood erythrocytes count (nu mber/volume)on 03-18-2022 RBC (Bld) [#/Vol] 3.65 10*6/uL 4.2-5.4 [facility] Work Phone: Blood hemoglobin measurement (mass/volume)on 03-18-2022 Hemoglobin (Bld) [Mass/Vol] 11.8 g/dL 12.0-15.0 [facility] Work Phone: Blood lymphocytes/100 leukoc yteson 03-18-2022 Lymphocytes/100 WBC (Bld) 46.8 % 19-41 [facility] Work Phone: Blood monocytes/100 leukocyt eson 03-18-2022 Monocytes/100 WBC (Bld) 11.3 % 0-10 [facility] Work Phone: Blood platelet mean volumeon 03-18-2022 Platelet mean volume (Bld) [Entitic vol] 10.0 fL 6.2-12.0 [facility] Work Phone: Determination of erythrocyte mean corpuscular volume (MCV)on 03-18-2022 MCV (RBC) [Entitic vol] 95.6 fL 81-99 [facility] Work Phone: Hematocrit Auto (Bld) [Volum e fraction]on 03-18-2022 Hematocrit (Bld) [Volume fraction] 34.9 % 37-47 [facility] Work Phone: [phone] Laboratory - Chemistry and C hemistry - challengeon 03-18-2022 CO2 [Moles/Vol] 28.0 mmol/L 21.0-32.0 [facility] Work Phone: Urea nitrogen/Creatinine [Mass ratio] 16.8 mg/mg 10-20 [facility] Work Phone: Laboratory - Hematology and Cell countson 03-18-2022 Erythrocyte distribution width (RBC) [Entitic vol] 45.9 fL 35.1-43.9 [facility] Work Phone: Erythrocyte distribution width (RBC) [Ratio] 13.0 % 11.6-14.6 [facility] Work Phone: Immature granulocytes/100 WBC (Bld) 0.200 % 0.0-0.9 [facility] Work Phone: Comment on above: IG% - Immature Granu locytes (promyelocytes, myelocytes and metamyelocytes) > 1% indicates that a LEFT SHIFT is Present. MCH (RBC) [Entitic mass] 32.3 pg 27.0-32.0 [facility] Work Phone: Nucleated RBC/100 WBC (Bld) [Ratio] 0 % 0-5 [facility] Work Phone: MCHC Auto (RBC) [Mass/Vol]on 03-18-2022 MCHC (RBC) [Mass/Vol] 33.8 g/dL 32-36 [facility] Work Phone: No Panel Informationon 03-18 Estimated GFR (MDRD) Amer 78 mL/min >60 [facility] Work Phone: Comment on above: GFR Calc Estimated GFR (MDRD) Non-Af Amer 65 mL/min >60 [facility] Work Phone: Comment on above: Non- GFR Calc Thyroid Stimulating Hormone (TSH) 1.61 uIU/mL 0.358-3.74 [facility] Work Phone: Platelets bldon 03-18-2022 Platelets (Bld) [#/Vol] 230 10*3/uL 150-450 [facility] Work Phone: Serum or plasma calcitriol m easurement (mass/volume)on 03-18-2022 1,25-dihydroxyvitamin D3 [Mass/Vol] 57.2 pg/mL 24.8-81.5 [facility] Work Phone: Comment on above: Please note refere nce interval changePerformed at: - Lab[address] [id number] Director: Skylar Nichols MD, Phone: [phone] Serum or plasma calcium glo urement (mass/volume)on 03-18-2022 Calcium [Mass/Vol] 8.7 mg/dL 8.5-10.1 [facility] Work Phone: Serum or plasma creatinine m easurement (mass/volume)on 03-18-2022 Creatinine [Mass/Vol] 0.89 mg/dL 0.55-1.02 [facility] Work Phone: Comment on above: The validity of the calculated GFR & GFRAA in patients over 70 years has not been determined. Clinical correlation is essential. Serum or plasma urea nitroge n measurement (mass/volume)on 03-18-2022 Urea nitrogen [Mass/Vol] 15 mg/dL 7-18 [facility] Work Phone: Thin prep Papanicolaou smear with manual screeningon 03-18-2022 Thin prep Papanicolaou smear with manual screening 6 5-15 [facility] Work Phone: Basophil percentageon 2021 Sodium [Moles/Vol] 129 mmol/L 136-145 [facility] Work Phone: Basophil percentageon 2021 Chloride [Moles/Vol] 97 mmol/L 98-107 [facility] Work Phone: Glucose [Mass/Vol] 108 mg/dL 74-106 [facility] Work Phone: Comment on above: Fasting Glucose resu lt from 100 to 125 mg/dL suggests IMPAIRED HOMEOSTASIS per A.D.A. criteria. Potassium [Moles/Vol] 4.3 mmol/L 3.5-5.1 [facility] Work Phone: Sodium [Moles/Vol] 130 mmol/L 136-145 [facility] Work Phone: Laboratory - Chemistry and C hemistry - challengeon 11-16-2021 CO2 [Moles/Vol] 28.0 mmol/L 21.0-32.0 [facility] Work Phone: Urea nitrogen/Creatinine [Mass ratio] 20.9 mg/mg 10-20 [facility] Work Phone: No Panel Informationon 11-16 Estimated GFR (MDRD) Amer 77 mL/min >60 [facility] Work Phone: Comment on above: GFR Calc Estimated GFR (MDRD) Non-Af Amer 63 mL/min >60 [facility] Work Phone: Comment on above: Non- GFR Calc Serum or plasma calcium glo urement (mass/volume)on 11-16-2021 Calcium [Mass/Vol] 8.5 mg/dL 8.5-10.1 [facility] Work Phone: Serum or plasma cortisol she surement (mass/volume)on 11-16-2021 Cortisol [Mass/Vol] 13.70 ug/dL 3.44-22.45 [facility] Work Phone: Comment on above: Adult (AM) 5.27 - 22 .45 ug/dL Adult (PM) 3.44 - 16.76 ug/dLPlease note revised CORTISOL reference range effective 2019. Serum or plasma creatinine m easurement (mass/volume)on 11-16-2021 Creatinine [Mass/Vol] 0.91 mg/dL 0.55-1.02 [facility] Work Phone: Comment on above: The validity of the calculated GFR & GFRAA in patients over 70 years has not been determined. Clinical correlation is essential. Serum or plasma urea nitroge n measurement (mass/volume)on 11-16-2021 Urea nitrogen [Mass/Vol] 19 mg/dL 7-18 [facility] Work Phone: Thin prep Papanicolaou smear with manual screeningon 11-16-2021 Thin prep Papanicolaou smear with manual screening 5 5-15 [facility] Work Phone: Absolute lymphocyte counton 11-14-2021 Lymphocytes Auto (Unsp spec) [#/Vol] 1.64 10*3/uL 0.83-4.51 [facility] Work Phone: Basophil percentageon 2021 Basophils/100 WBC (Bld) 1.1 % 0-1 [facility] Work Phone: [phone] Bilirubin [Mass/Vol] 0.70 mg/dL 0.20-1.00 [facility] Work Phone: [phone] Comment on above: For patients on eltr ombopag therapy, use of Dimension [place] TBIL is not recommended. Chloride [Moles/Vol] 99 mmol/L 98-107 [facility] Work Phone: Cholesterol [Mass/Vol] 181 mg/dL <200 [facility] Work Phone: [phone] Comment on above: <200 mg/dL Desirable 200-240 mg/dL Borderline >240 mg/dL High Risk Eosinophils/100 WBC (Bld) 6.7 % 0-5 [facility] Work Phone: [phone] Glucose [Mass/Vol] 87 mg/dL 74-106 [facility] Work Phone: Neutrophils (Bld) [#/Vol] 1.1 10*3/uL 2.0-7.7 [facility] Work Phone: Neutrophils/100 WBC (Bld) 31.3 % 47-70 [facility] Work Phone: [phone] Potassium [Moles/Vol] 4.1 mmol/L 3.5-5.1 [facility] Work Phone: [phone] Protein [Mass/Vol] 6.6 g/dL 6.4-8.2 [facility] Work Phone: Sodium [Moles/Vol] 133 mmol/L 136-145 [facility] Work Phone: [phone] Triglyceride [Mass/Vol] 62 mg/dL [facility] Work Phone: [phone] Comment on above: The drugs N-Acetylcy steine and Metamizole may falsely depress this assay.Serum Triglycerides Reference Interval Normal <150 mg/dL Borderline high 150 - 199 mg/dL High 200 - 499 mg/dL Very High > or = 500 mg/dL WBC (Bld) [#/Vol] 3.6 10*3/uL 4.4-11.0 [facility] Work Phone: [phone] Blood erythrocytes count (nu mber/volume)on 11-14-2021 RBC (Bld) [#/Vol] 3.83 10*6/uL 4.2-5.4 [facility]: [phone] Blood hemoglobin measurement (mass/volume)on 11-14-2021 Hemoglobin (Bld) [Mass/Vol] 12.3 g/dL 12.0-15.0 [facility] Work Phone: Blood lymphocytes/100 leukoc yteson 11-14-2021 Lymphocytes/100 WBC (Bld) 45.8 % 19-41 [facility] Work Phone: Blood monocytes/100 leukocyt eson 11-14-2021 Monocytes/100 WBC (Bld) 14.5 % 0-10 [facility] Work Phone: [phone] Blood platelet mean volumeon 11-14-2021 Platelet mean volume (Bld) [Entitic vol] 10.3 fL 6.2-12.0 [facility] Work Phone: [phone] Determination of erythrocyte mean corpuscular volume (MCV)on 11-14-2021 MCV (RBC) [Entitic vol] 92.7 fL 81-99 [facility] Work Phone: [phone] Hematocrit Auto (Bld) [Volum e fraction]on 11-14-2021 Hematocrit (Bld) [Volume fraction] 35.5 % 37-47 [facility] Work Phone: [phone] Laboratory - Chemistry and C hemistry - challengeon 11-14-2021 ALP [Catalytic activity/Vol] 72 U/L 45-117 [facility] Work Phone: [phone] ALT [Catalytic activity/Vol] 32 U/L 13-56 [facility] Work Phone: [phone] CO2 [Moles/Vol] 31.0 mmol/L 21.0-32.0 [facility] Work Phone: [phone] Globulin (S) [Mass/Vol] 3.6 g/dL 2.2-4.2 [facility] Work Phone: Urea nitrogen/Creatinine [Mass ratio] 21.9 mg/mg 10-20 [facility] Work Phone: Laboratory - Hematology and Cell countson 11-14-2021 Erythrocyte distribution width (RBC) [Entitic vol] 45.9 fL 35.1-43.9 [facility] Work Phone: Erythrocyte distribution width (RBC) [Ratio] 13.5 % 11.6-14.6 [facility] Work Phone: Immature granulocytes/100 WBC (Bld) 0.600 % 0.0-0.9 [facility] Work Phone: Comment on above: IG% - Immature Granu locytes (promyelocytes, myelocytes and metamyelocytes) > 1% indicates that a LEFT SHIFT is Present. MCH (RBC) [Entitic mass] 32.1 pg 27.0-32.0 [facility] Work Phone: Nucleated RBC/100 WBC (Bld) [Ratio] 0 % 0-5 [facility] Work Phone: MCHC Auto (RBC) [Mass/Vol]on 11-14-2021 MCHC (RBC) [Mass/Vol] 34.6 g/dL 32-36 [facility] Work Phone: No Panel Informationon 11-14 Estimated GFR (MDRD) Amer 98 mL/min >60 [facility] Work Phone: Comment on above: GFR Calc Estimated GFR (MDRD) Non-Af Amer 81 mL/min >60 [facility] Work Phone: Comment on above: Non- GFR Calc Platelets bldon 11-14-2021 Platelets (Bld) [#/Vol] 244 10*3/uL 150-450 [facility] Work Phone: Serum or plasma albumin glo urement (mass/volume)on 11-14-2021 Albumin [Mass/Vol] 3.0 g/dL 3.2-5.0 [facility] Work Phone: Serum or plasma albumin/glob ulin mass ratioon 11-14-2021 Albumin/Globulin [Mass ratio] 0.8 {ratio} 0.9-2.4 [facility] Work Phone: Serum or plasma calcium glo urement (mass/volume)on 11-14-2021 Calcium [Mass/Vol] 8.3 mg/dL 8.5-10.1 [facility] Work Phone: Serum or plasma cholesterol in HDL measurement (mass/volume)on 11-14-2021 Cholesterol in HDL [Mass/Vol] 85 mg/dL [facility] Work Phone: Comment on above: The drugs N-Acetylcy steine and Metamizole may falsely depress this assay. Reference Range HDL <40 mg/dL Low HDL Cholesterol HDL >or= 60 mg/dL High HDL Cholesterol Serum or plasma cholesterol in VLDL measurement (mass/volume)on 11-14-2021 Cholesterol in VLDL [Mass/Vol] 12 mg/dL 5-40 [facility] Work Phone: Serum or plasma creatinine m easurement (mass/volume)on 11-14-2021 Creatinine [Mass/Vol] 0.73 mg/dL 0.55-1.02 [facility] Work Phone: Comment on above: The validity of the calculated GFR & GFRAA in patients over 70 years has not been determined. Clinical correlation is essential. Serum or plasma low density lipoprotein (LDL) cholesterol measurement (mass/volume)on 11-14-2021 Cholesterol in LDL [Mass/Vol] 84 mg/dL 0-130 [facility] Work Phone: Serum or plasma urea nitroge n measurement (mass/volume)on 11-14-2021 Urea nitrogen [Mass/Vol] 16 mg/dL 7-18 [facility] Work Phone: Thin prep Papanicolaou smear with manual screeningon 11-14-2021 Thin prep Papanicolaou smear with manual screening 26 U/L 15-37 [facility] Work Phone: Thin prep Papanicolaou smear with manual screening 3 5-15 [facility] Work Phone: No Panel Informationon 10-25 Troponin I High Sensitivity 12 pg/mL 3.0-54.0 [facility] Work Phone: Comment on above: Please Note: New Latricia t Units and Gender Specific Reference Ranges. For more information see Policy Stat Procedure [place] High Sensitivity Troponin (TNIH) and attachments. Absolute lymphocyte counton 10-24-2021 Lymphocytes Auto (Unsp spec) [#/Vol] 3.19 10*3/uL 0.83-4.51 [facility] Work Phone: Basophil percentageon 2021 Basophils/100 WBC (Bld) 0.6 % 0-1 [facility] Work Phone: Bilirubin [Mass/Vol] 0.80 mg/dL 0.20-1.00 [facility] Work Phone: Comment on above: For patients on eltr ombopag therapy, use of Dimension [place] TBIL is not recommended. Chloride [Moles/Vol] 94 mmol/L 98-107 [facility] Work Phone: Eosinophils/100 WBC (Bld) 2.3 % 0-5 [facility] Work Phone: Glucose [Mass/Vol] 114 mg/dL 74-106 [facility] Work Phone: Comment on above: Fasting Glucose resu lt from 100 to 125 mg/dL suggests IMPAIRED HOMEOSTASIS per A.D.A. criteria. Neutrophils (Bld) [#/Vol] 2.7 10*3/uL 2.0-7.7 [facility] Work Phone: Neutrophils/100 WBC (Bld) 39.8 % 47-70 [facility] Work Phone: Potassium [Moles/Vol] 3.5 mmol/L 3.5-5.1 [facility] Work Phone: Protein [Mass/Vol] 7.5 g/dL 6.4-8.2 [facility] Work Phone: Sodium [Moles/Vol] 129 mmol/L 136-145 [facility] Work Phone: WBC (Bld) [#/Vol] 6.9 10*3/uL 4.4-11.0 [facility] Work Phone: Blood erythrocytes count (nu mber/volume)on 10-24-2021 RBC (Bld) [#/Vol] 3.99 10*6/uL 4.2-5.4 [facility] Work Phone: Blood hemoglobin measurement (mass/volume)on 10-24-2021 Hemoglobin (Bld) [Mass/Vol] 13.0 g/dL 12.0-15.0 [facility] Work Phone: Blood lymphocytes/100 leukoc yteson 10-24-2021 Lymphocytes/100 WBC (Bld) 46.4 % 19-41 [facility] Work Phone: Blood monocytes/100 leukocyt eson 10-24-2021 Monocytes/100 WBC (Bld) 10.8 % 0-10 [facility] Work Phone: Blood platelet mean volumeon 10-24-2021 Platelet mean volume (Bld) [Entitic vol] 9.8 fL 6.2-12.0 [facility] Work Phone: [phone] Determination of erythrocyte mean corpuscular volume (MCV)on 10-24-2021 MCV (RBC) [Entitic vol] 94.2 fL 81-99 [facility] Work Phone: Direct bilirubinon 2 Bilirubin.direct [Mass/Vol] 0.21 mg/dL 0.00-0.30 [facility] Work Phone: Hematocrit Auto (Bld) [Volum e fraction]on 10-24-2021 Hematocrit (Bld) [Volume fraction] 37.6 % 37-47 [facility] Work Phone: [phone] Laboratory - Chemistry and C hemistry - challengeon 02-10-2022 ALP [Catalytic activity/Vol] 61 U/L 45-117 [facility] Work Phone: ALT [Catalytic activity/Vol] 30 U/L 13-56 [facility] Work Phone: CO2 [Moles/Vol] 27.0 mmol/L 21.0-32.0 [facility] Work Phone: Globulin (S) [Mass/Vol] 3.9 g/dL 2.2-4.2 [facility] Work Phone: [phone] Lipase [Catalytic activity/Vol] 156 U/L 73-393 [facility] Work Phone: [phone] Magnesium [Mass/Vol] 2.2 mg/dL [facility] Work Phone: Comment on above: Performed at: [place] [id number] Director: Nicola Alex PhD, Phone: [phone] Urea nitrogen/Creatinine [Mass ratio] 21.0 mg/mg 10-20 [facility] Work Phone: Laboratory - Hematology and Cell countson 10-24-2021 Erythrocyte distribution width (RBC) [Entitic vol] 45.5 fL 35.1-43.9 [facility] Work Phone: Erythrocyte distribution width (RBC) [Ratio] 13.2 % 11.6-14.6 [facility] Work Phone: Immature granulocytes/100 WBC (Bld) 0.100 % 0.0-0.9 [facility] Work Phone: Comment on above: IG% - Immature Granu locytes (promyelocytes, myelocytes and metamyelocytes) > 1% indicates that a LEFT SHIFT is Present. MCH (RBC) [Entitic mass] 32.6 pg 27.0-32.0 [facility] Work Phone: Nucleated RBC/100 WBC (Bld) [Ratio] 0 % 0-5 [facility] Work Phone: MCHC Auto (RBC) [Mass/Vol]on 10-24-2021 MCHC (RBC) [Mass/Vol] 34.6 g/dL 32-36 [facility] Work Phone: No Panel Informationon 10-24 Estimated Creatinine Clearance Calc 40.90 ml/min [facility] Work Phone: Estimated GFR (MDRD) Amer 69 mL/min >60 [facility] Work Phone: Comment on above: GFR Calc Estimated GFR (MDRD) Non-Af Amer 57 mL/min >60 [facility] Work Phone: Comment on above: Non- GFR Calc Platelets bldon 10-24-2021 Platelets (Bld) [#/Vol] 240 10*3/uL 150-450 [facility] Work Phone: Serum or plasma albumin glo urement (mass/volume)on 10-24-2021 Albumin [Mass/Vol] 3.6 g/dL 3.2-5.0 [facility] Work Phone: Serum or plasma calcium glo urement (mass/volume)on 10-24-2021 Calcium [Mass/Vol] 8.9 mg/dL 8.5-10.1 [facility] Work Phone: Serum or plasma creatinine m easurement (mass/volume)on 10-24-2021 Creatinine [Mass/Vol] 1.00 mg/dL 0.55-1.02 [facility] Work Phone: Comment on above: The validity of the calculated GFR & GFRAA in patients over 70 years has not been determined. Clinical correlation is essential. Serum or plasma urea nitroge n measurement (mass/volume)on 10-24-2021 Urea nitrogen [Mass/Vol] 21 mg/dL 7-18 [facility] Work Phone: Thin prep Papanicolaou smear with manual screeningon 10-24-2021 Thin prep Papanicolaou smear with manual screening 21 U/L 15-37 [facility] Work Phone: Thin prep Papanicolaou smear with manual screening 8 5-15 [facility] Work Phone: Absolute lymphocyte counton 09-26-2021 Lymphocytes Auto (Unsp spec) [#/Vol] 1.84 10*3/uL 0.83-4.51 [facility] Work Phone: Basophil percentageon 2021 Basophils/100 WBC (Bld) 0.7 % 0-1 [facility] Work Phone: Bilirubin [Mass/Vol] 0.80 mg/dL 0.20-1.00 [facility] Work Phone: Comment on above: For patients on eltr ombopag therapy, use of Dimension [place] TBIL is not recommended. Chloride [Moles/Vol] 100 mmol/L 98-107 [facility] Work Phone: Eosinophils/100 WBC (Bld) 3.0 % 0-5 [facility] Work Phone: Glucose [Mass/Vol] 86 mg/dL 74-106 [facility] Work Phone: Neutrophils (Bld) [#/Vol] 1.8 10*3/uL 2.0-7.7 [facility] Work Phone: Neutrophils/100 WBC (Bld) 41.1 % 47-70 [facility] Work Phone: Potassium [Moles/Vol] 4.0 mmol/L 3.5-5.1 [facility] Work Phone: Protein [Mass/Vol] 6.9 g/dL 6.4-8.2 [facility] Work Phone: Sodium [Moles/Vol] 135 mmol/L 136-145 [facility] Work Phone: WBC (Bld) [#/Vol] 4.3 10*3/uL 4.4-11.0 [facility] Work Phone: Blood erythrocytes count (nu mber/volume)on 09-26-2021 RBC (Bld) [#/Vol] 3.86 10*6/uL 4.2-5.4 [facility] Work Phone: Blood hemoglobin measurement (mass/volume)on 09-26-2021 Hemoglobin (Bld) [Mass/Vol] 12.1 g/dL 12.0-15.0 [facility] Work Phone: Blood lymphocytes/100 leukoc yteson 09-26-2021 Lymphocytes/100 WBC (Bld) 42.5 % 19-41 [facility] Work Phone: Blood monocytes/100 leukocyt eson 09-26-2021 Monocytes/100 WBC (Bld) 12.5 % 0-10 [facility] Work Phone: [phone] Blood platelet mean volumeon 09-26-2021 Platelet mean volume (Bld) [Entitic vol] 8.9 fL 6.2-12.0 [facility] Work Phone: Determination of erythrocyte mean corpuscular volume (MCV)on 09-26-2021 MCV (RBC) [Entitic vol] 93.8 fL 81-99 [facility] Work Phone: [phone] Hematocrit Auto (Bld) [Volum e fraction]on 09-26-2021 Hematocrit (Bld) [Volume fraction] 36.2 % 37-47 [facility] Work Phone: [phone] Laboratory - Chemistry and C hemistry - challengeon 09-26-2021 ALP [Catalytic activity/Vol] 57 U/L 45-117 [facility] Work Phone: ALT [Catalytic activity/Vol] 26 U/L 13-56 [facility] Work Phone: [phone] CO2 [Moles/Vol] 29.0 mmol/L 21.0-32.0 [facility] Work Phone: [phone] Globulin (S) [Mass/Vol] 3.7 g/dL 2.2-4.2 [facility] Work Phone: [phone] Urea nitrogen/Creatinine [Mass ratio] 20.5 mg/mg 10-20 [facility] Work Phone: [phone] Laboratory - Hematology and Cell countson 09-26-2021 Erythrocyte distribution width (RBC) [Entitic vol] 46.7 fL 35.1-43.9 [facility] Work Phone: Erythrocyte distribution width (RBC) [Ratio] 13.6 % 11.6-14.6 [facility] Work Phone: Immature granulocytes/100 WBC (Bld) 0.200 % 0.0-0.9 [facility] Work Phone: Comment on above: IG% - Immature Granu locytes (promyelocytes, myelocytes and metamyelocytes) > 1% indicates that a LEFT SHIFT is Present. MCH (RBC) [Entitic mass] 31.3 pg 27.0-32.0 [facility] Work Phone: Nucleated RBC/100 WBC (Bld) [Ratio] 0 % 0-5 [facility] Work Phone: MCHC Auto (RBC) [Mass/Vol]on 09-26-2021 MCHC (RBC) [Mass/Vol] 33.4 g/dL 32-36 [facility] Work Phone: No Panel Informationon 09-26 Estimated Creatinine Clearance Calc 45.29 ml/min [facility] Work Phone: Estimated GFR (MDRD) Amer 80 mL/min >60 [facility] Work Phone: Comment on above: GFR Calc Estimated GFR (MDRD) Non-Af Amer 66 mL/min >60 [facility] Work Phone: Comment on above: Non- GFR Calc Platelets bldon 09-26-2021 Platelets (Bld) [#/Vol] 230 10*3/uL 150-450 [facility] Work Phone: Serum or plasma albumin glo urement (mass/volume)on 09-26-2021 Albumin [Mass/Vol] 3.2 g/dL 3.2-5.0 [facility] Work Phone: Serum or plasma albumin/glob ulin mass ratioon 09-26-2021 Albumin/Globulin [Mass ratio] 0.9 {ratio} 0.9-2.4 [facility] Work Phone: Serum or plasma calcium glo urement (mass/volume)on 09-26-2021 Calcium [Mass/Vol] 8.5 mg/dL 8.5-10.1 [facility] Work Phone: Serum or plasma creatinine m easurement (mass/volume)on 09-26-2021 Creatinine [Mass/Vol] 0.88 mg/dL 0.55-1.02 [facility] Work Phone: Comment on above: The validity of the calculated GFR & GFRAA in patients over 70 years has not been determined. Clinical correlation is essential. Serum or plasma urea nitroge n measurement (mass/volume)on 09-26-2021 Urea nitrogen [Mass/Vol] 18 mg/dL 7-18 [facility] Work Phone: Thin prep Papanicolaou smear with manual screeningon 09-26-2021 Thin prep Papanicolaou smear with manual screening 18 U/L 15-37 [facility] Work Phone: Thin prep Papanicolaou smear with manual screening 6 5-15 [facility] Work Phone: XR Knee - right 4 Viewson IMPRESSION: Right knee osteoarthritis with chondrocalcinosis and small joint effusion. Staff Design Engineer: BO Transcribe Date/Time: Mar 26 2021 3:04P Dictated by : Catalina LONGO MD This examination was interpreted and the report reviewed and electronically signed by: Catalina LONGO MD on Mar 26 2021 3:08PM [facility] [[email or web address]] DIVISION OF RADIOLOGY * * *Final Report* [...] osteoarthritis with chondrocalcinosis and small joint effusion. Staff Design Engineer: PSCDu Transcribe Date/Time: Mar 26 2021 3:04P Dictated by : Catalina LONGO MD This examination was interpreted and the report reviewed and electronically signed by: Catalina LNOGO MD on Mar 26 2021 3:08PM EST [facility] Radiology Study observation (narrative) [facility] XR Knee - right 4 ViewsOrder ed By: [facility]cf Provider on 03-26-2021 [facility] Cells counted Mol[employer] (Bld/Ti ss) [#]on 01-06-2019 Differential Total Cells Counted Not Reportable [facility] Erythrocyte distribution wid th (RBC) [Entitic vol]on 01-06-2019 Red Cell Distribution Width Diff 45.1 fl High 35.1-43.9 [facility] Erythrocyte distribution wid th standard deviationon 01-06-2019 Erythrocyte distribution width (RBC) [Entitic vol] 45.1 fL 35.1-43.9 [facility] Laboratory - Hematology and Cell countson 01-06-2019 Erythrocyte distribution width (RBC) [Ratio] 13.4 % 11.6-14.6 [facility] Total cell counton 9 Cells counted Molgen (Bld/Tiss) [#] Not Reportable [facility] Lab Report: Basic Metabolic Profile (BMP)on 08-03-2017 Anion gap 9 mmol/L Invalid Interpretation Code 5-15 [facility] Work Phone: [phone] BUN/Creatinine Ratio 24.3 RATIO High 10-20 [facility] [email or web address] Work Phone: [phone] Calcium 8.7 mg/dL Invalid Interpretation Code 8.5-10.1 [facility] Work Phone: [phone] Chloride 96 mmol/L Low 98-107 [facility] Work Phone: [phone] CO2 27.0 mmol/L Invalid Interpretation Code 21.0-32.0 [facility] Work Phone: [phone] Creatinine 0.86 mg/dL Invalid Interpretation Code 0.55-1.02 [facility] Work Phone: [phone] eGFR (non-black) 82 mL/min/{1.73_m2} Invalid Interpretation Code >60 [facility] Work Phone: [phone] eGFR (non-black) 68 mL/min/{1.73_m2} Invalid Interpretation Code >60 [facility] Work Phone: [phone] Glucose mass conc 87 mg/dL Invalid Interpretation Code 70-110 [facility] Work Phone: [phone] Potassium molar conc 4.6 mmol/L Invalid Interpretation Code 3.5-5.1 [facility] Work Phone: [phone] Sodium 132 mmol/L Low 136-145 [facility] Work Phone: [phone] Urea nitrogen 21 mg/dL High 7-18 [facility] Work Phone: [phone] Lab Report: Magnesiumon 07-16 Magnesium 2.2 mg/dL Invalid Interpretation Code 1.8-2.4 [facility] Work Phone: [phone] Office Visit: Jw 08-03-20 17 Documentation of current medications (procedure) Done Invalid Interpretation Code [facility] Work Phone: [phone] Fall risk assessment No Invalid Interpretation Code [facility] Work Phone: [phone] Replaced Document: [facility] E CG Observationson 08-03-2017 EKG QRS axis 55 deg Invalid Interpretation Code [facility] [email or web address] Work Phone: [phone] Interpretation Sinus Rhythm -RSR(V1 ) -nondiagnostic. PROBABLY NORMAL Invalid Interpretation Code [facility] [email or web address] Work Phone: [phone] P [place] 90 deg Invalid Interpretation Code [facility] [email or web address] Work Phone: [phone] FL Interval 196 ms Invalid Interpretation Code [facility] Work Phone: [phone] Pulse (Heart Rate) 66 /min Invalid Interpretation Code [facility] Work Phone: [phone] QRS Duration 100 ms Invalid Interpretation Code [facility] [email or web address] Work Phone: [phone] QT Interval new path ms Invalid Interpretation Code [facility] [email or web address] Work Phone: [phone] QTc Jacobsen 422 ms Invalid Interpretation Code [facility] [email or web address] Work Phone: [phone] T [place] 64 deg Invalid Interpretation Code [facility] [email or web address] Work Phone: [phone] Office Visit: post LN remova justin 06-16-2017 Alcoholism counseling (procedure) no Invalid Interpretation Code [facility] [email or web address] Work Phone: [phone] Dietary management education, guidance, and counseling (procedure) yes Invalid Interpretation Code [facility] [email or web address] Work Phone: [phone] Tobacco use CPHS Never smoker Invalid Interpretation Code [facility] [email or web address] Work Phone: [phone] Lab Report: CBC-Complete Blo od Cnt No Diffon 04-13-2017 Erythrocyte distribution width Auto Ratio (RBC) 13.2 % Invalid Interpretation Code 11.6-14.6 [facility] [email or web address] Work Phone: [phone] Erythrocytes (RBC) 4.10 10*6/uL Low 4.2-5.[address] [facility] [address] [facility] [email or web address] Work Phone: [phone] Hematocrit (HCT) 37.8 % Invalid Interpretation Code 37-47 [facility] [employer] Work Phone: [phone] Hemoglobin mass conc (Bld) 12.6 g/dL Invalid Interpretation Code 12.0-15.0 [facility] [email or web address] Work Phone: [phone] MCH 30.7 pg Invalid Interpretation Code 27.0-32.0 [facility] [email or web address] Work Phone: [phone] MCHC mass conc (RBC) 33.3 G/GL Invalid Interpretation Code 32-36 [employer] Work Phone: [phone] MCV 92.2 fL Invalid Interpretation Code 81-99 [employer] Work Phone: [phone] Platelets 239 10*3/mm3 Invalid Interpretation Code 150-450 [employer] Work Phone: [phone] PMV by Uriel 9.6 fL Invalid Interpretation Code 6.2-12.0 [employer] Work Phone: [phone] RDW SD 44.5 fL High 35.1-43.9 [employer] Work Phone: [phone] WBC (Leukocytes) 4.7 10*3/uL Invalid Interpretation Code 4.4-11.0 [employer] Work Phone: [phone] Clinical Lists Update: Pre 02-25-2017 Left ventricular Ejection fraction 60 % Invalid Interpretation Code [employer] Work Phone: [phone] Clinical Lists Update: Pre 02-07-2016 eGFR (non-black) 97 mL/min/{1.73_m2} Invalid Interpretation Code [employer] Work Phone: [phone] eGFR (non-black) 81 mL/min/{1.73_m2} Invalid Interpretation Code [employer] Work Phone: [phone] Clinical Lists Update: Pre 02-06-2016 Thyroid stimulating hormone (TSH) 5.70 u[iU]/mL High [employer] Work Phone: [phone] Thyroxine (T4) free 0.97 ng/dL Invalid Interpretation Code [employer] Work Phone: [phone] Lab Report: (P) Urinalysis, Complete02-05-2016 Bilirubin Ql (U) Negative Invalid Interpretation Code Negative [employer] Work Phone: [phone] NITRITE UR Negative Invalid Interpretation Code Negative [employer] Work Phone: [phone] OCCULT BLOOD-UR 10 High Negative [employer] Work Phone: [phone] specific gravity, urine 1.010 Invalid Interpretation Code 1.002-1.03 0 [employer] Work Phone: [phone] Urine, clarity Sl. Cloudy Invalid Interpretation Code Clear [employer] Work Phone: [phone] Urine, color Yellow Invalid Interpretation Code Yellow [employer] Work Phone: [phone] Urine, glucose presence Normal mg/dl Invalid Interpretation Code Normal [employer] Work Phone: [phone] Urine, ketones presence Negative Invalid Interpretation Code Negative [employer] Work Phone: [phone] Urine, leukocyte esterase presence 500 High Negative [employer] Work Phone: [phone] Urine, pH 7.0 [pH] Invalid Interpretation Code 5.0 - 8.0 [employer] Work Phone: [phone] Urine, protein Negative Invalid Interpretation Code Negative [employer] Work Phone: [phone] UROBILI Normal mg/dl Invalid Interpretation Code Normal [employer] Work Phone: [phone] Lab Report: Lipid Profileon 02-05-2016 Cholesterol 174 mg/dL Invalid Interpretation Code 200 [employer] Work Phone: [phone] HDL Cholesterol 96 mg/dL Invalid Interpretation Code [employer] Work Phone: [phone] LDL Cholesterol 68 mg/dL Invalid Interpretation Code 0-130 [employer] Work Phone: [phone] Triglyceride 52 mg/dL Invalid Interpretation Code [employer] Work Phone: [phone] very low density lipoproteins 10 mg/dL Invalid Interpretation Code 5-40 [employer] Work Phone: [phone] Lab Report: Liver Profileon 02-05-2016 Alanine aminotransferase (ALT) 26 U/L Invalid Interpretation Code 12-78 [employer] Work Phone: [phone] Albumin 3.1 g/dL Low 3.4-5.0 [employer] Work Phone: [phone] Alkaline phosphatase (ALP) 66 U/L Invalid Interpretation Code 50-136 [employer] Work Phone: [phone] Aspartate aminotransferase (AST) 28 U/L Invalid Interpretation Code 15-37 [employer] Work Phone: [phone] Bilirubin (direct) 0.20 mg/dL Invalid Interpretation Code 0.00-0.30 [employer] Work Phone: [phone] Bilirubin (total) 0.70 mg/dL Invalid Interpretation Code 0.20-1.00 [employer] Work Phone: [phone] Globulin 3.6 g/dL High 2.3-3.5 [employer] Work Phone: [phone] Protein 6.7 g/dL Invalid Interpretation Code 6.4-8.2 [employer] Work Phone: [phone] Lab Report: Osmolality, Seru mon 02-05-2016 Osmolality 265 mosm/kg Low 280-301 [employer] Work Phone: [phone] Lab Report: Osmolality, Urin robbie 02-05-2016 Urine, osmolality 360 mosm/kg Invalid Interpretation Code [employer] Work Phone: [phone] Lab Report: Urinalysis, Comp leteon 02-05-2016 Urine, bacteria in sediment RARE /hpf Invalid Interpretation Code None Seen [employer] Work Phone: [phone] Urine, epithelial cells in sediment 0-5 SEEN Invalid Interpretation Code 5-10 [employer] Work Phone: [phone] Urine, erythrocytes in sediment by volume 0-5 SEEN Invalid Interpretation Code 0-5 [employer] Work Phone: [phone] Urine, mucus presence in sediment 0 SEEN Invalid Interpretation Code [employer] Work Phone: [phone] WBC (Leukocytes) 5-10 SEEN Invalid Interpretation Code 0-5 [employer] Work Phone: [phone] Replaced Document: (P) Prote in+Creatinine Ratio,Urineon 02-05-2016 Protein [Mass] in Urine collected for unspecified duration 12.2 mg/dL High <11.9 [employer] Work Phone: [phone] protein/creatinine, urine, point, quantitative 172 MG/G CRE Invalid Interpretation Code 0-200 [employer] Work Phone: [phone] Urine, creatinine 71.00 mg/dL Invalid Interpretation Code NO RANGE EST. [employer] Work Phone: [phone] Replaced Document: (P) Urine Chlorideon 02-05-2016 UR CL 43 mmol/L Invalid Interpretation Code Not Establ. [employer] Work Phone: [phone] Replaced Document: (P) Urine Potassiumon 02-05-2016 Urine, potassium 46.0 mmol/L Invalid Interpretation Code Not Establ. [employer] Work Phone: [phone] Replaced Document: (P) Urine Sodiumon 02-05-2016 Urine, sodium 38 mmol/L Invalid Interpretation Code Not Establ. [employer] Work Phone: [phone] Office Visiton 08-30-2015 General cardiovascular disease 10Y risk [#] [place].Darrell'Agomoira 2 % Invalid Interpretation Code [employer] Work Phone: [phone] Office Visiton 01-16-2015 cardiac risk group B Invalid Interpretation Code [employer] Work Phone: [phone] Coumadin Management: Jorden garibay [place] 05-11-2014 INR Coag RelTime (Bld) Hospital lab Invalid Interpretation Code [employer] Work Phone: [phone] INR Coag RelTime (Bld) 2 to 3 Invalid Interpretation Code [employer] Work Phone: [phone] INR Coag RelTime (PPP) 2.8 {INR} Invalid Interpretation Code [employer] Phone: [phone] Prothrombin time (PT) Coag time (PPP) 29.4 s Invalid Interpretation Code [employer] [facility] Phone: [phone] Lab Report: PTon 05-11-2014 PTP 29.4 SECONDS High 11.7-14.9 [employer] Work Phone: [phone] Clinical Lists Update: [place] [employer]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 10-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 basophils as percent of blood leukocytes, manual count 0.5 % Invalid Interpretation Code [employer] Work Phone: [phone] eosinophils as percent of blood leukocytes, manual count 0.7 % Invalid Interpretation Code [employer] Phone: [phone] Lymphocytes/100 leukocytes 28.9 % Invalid Interpretation Code [employer] Phone: [phone] Monocytes/100 leukocytes 14.7 % High [employer] Work Phone: [phone] neutrophils, band form as percent of blood leukocytes, manual count 55.2 % Invalid Interpretation Code [facility] Work Phone: Replaced Document: Neelima Gomez 10-10-2013 Pulse (Heart Rate) 442 ms Invalid Interpretation Code [facility] Work Phone: Influenza virus A and B and SARS-CoV-2 (COVID-19) Ag panel - Upper respiratory specim SARS-CoV-2 (COVID-19) RNA MIGUEL ANGEL+probe Ql (Resp) [facility] Work Phone: No Panel Information [facility] Vital Signs Date Time Vital Sign Value Performing Clinician Facility 02-10-2025 08:39-0400 Body mass index (BMI) [Ratio] 19.08 kg/m2 Rochelle Hackett MD Work Phone: [facility] 02-10-2025 08:39-0400 Body weight 55.25 kg Rochelle Hackett MD Work Phone: [facility] 02-10-2025 08:39-0400 Diastolic blood pressure 71 mm[Hg] Rochelle Hackett MD Work Phone: [facility] 02-10-2025 08:39-0400 Heart rate 62 /min Rochelle Hackett MD Work Phone: [facility] 02-10-2025 08:39-0400 Respiratory rate 16 /min Rochelle Hackett MD Work Phone: [facility] 02-10-2025 08:39-0400 Systolic blood pressure 160 mm[Hg] Rochelle Hackett MD Work Phone: [facility] 11-08-2024 09:17-0500 Body height 170.2 cm Rochelle Hackett MD Work Phone: [facility] 11-08-2024 09:17-0500 Body mass index (BMI) [Ratio] 18.01 kg/m2 Rochelle Hackett MD Work Phone: [facility] 11-08-2024 09:17-0500 Body weight 52.16 kg Rochelle Hackett MD Work Phone: [facility] 11-08-2024 09:17-0500 Diastolic blood pressure 78 mm[Hg] Rochelle Hackett MD Work Phone: [facility] 11-08-2024 09:17-0500 Heart rate 73 /min Rochelle Hackett MD Work Phone: [facility] 11-08-2024 09:17-0500 SaO2% (BldA) [Mass fraction] 96 % Rochelle Hackett MD Work Phone: [facility] 11-08-2024 09:17-0500 Systolic blood pressure 110 mm[Hg] Rochelle Hackett MD Work Phone: [facility] 11-02-2024 12:11-0500 Body mass index (BMI) [Ratio] 18.79 kg/m2 Al Older 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 Work Phone: [facility] 11-02-2024 12:11-0500 Body weight 54.43 kg Al Older 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 Work Phone: [facility] 11-02-2024 12:11-0500 Diastolic blood pressure 70 mm[Hg] Al Older 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 Work Phone: [facility] 11-02-2024 12:11-0500 Heart rate 60 /min Al Older 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 Work Phone: [facility] 11-02-2024 12:11-0500 Respiratory rate 16 /min Al Older 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 Work Phone: [facility] 11-02-2024 12:11-0500 SaO2% (BldA) [Mass fraction] 98 % Al Older 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 Work Phone: [facility] 11-02-2024 12:11-0500 Systolic blood pressure 128 mm[Hg] Al Older 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 Work Phone: [facility] 10-30-2024 21:58-0500 Body temperature 97.8 [degF] Dr. Rochelle Hackett MD Work Phone: [facility] 10-30-2024 21:58-0500 Diastolic blood pressure 71 mm[Hg] Dr. Rochelle Hackett MD Work Phone: 2(424)536-167172 [place] [address] 10-30-2024 21:58-0500 Heart rate 73 /min Dr. Rochelle Hackett MD Work Phone: 1(577)874-678472 [place] [address] 10-30-2024 21:58-0500 Respiratory rate 18 /min Dr. Rochelle Hackett MD Work Phone: 8(903)230-026272 [place] [address] 10-30-2024 21:58-0500 SaO2% (BldA) [Mass fraction] 100 % Dr. Rochelle Hackett MD Work Phone: 9(210)486-435572 [place] [address] 10-30-2024 21:58-0500 Systolic blood pressure 166 mm[Hg] Dr. Rochelle Hackett MD Work Phone: 2(964)052-562472 [place] [address] 10-30-2024 19:58-0500 Body height 170.[address] Rochelle Hackett MD Work Phone: 5(909)181-485172 [place] [address] 10-30-2024 19:58-0500 Body mass index (BMI) [Ratio] 19.6 kg/m2 Dr. Rochelle Hackett MD Work Phone: 1(909)524-027272 [place] [address] 10-30-2024 19:58-0500 Body weight 56.[address] Rochelle Hackett MD Work Phone: 3(480)517-282072 [place] [address] 09-28-2024 16:53-0500 Body height 169.5 cm Maya Sal MD Work Phone: [facility] 09-28-2024 16:53-0500 Body mass index (BMI) [Ratio] 18.94 kg/m2 Maya Sal MD Work Phone: [facility] 09-28-2024 16:53-0500 Body weight 54.43 kg Maya Sal MD Work Phone: [facility] 09-20-2024 15:44-0500 Diastolic blood pressure 61 mm[Hg] Dr. Rochelle Hackett MD Work Phone: 8(387)241-826272 [place] [address] 09-20-2024 15:44-0500 Heart rate 67 /min Dr. Rochelle Hackett MD Work Phone: 9(706)542-531772 [place] [address] 09-20-2024 15:44-0500 Respiratory rate 16 /min Dr. Rochelle Hackett MD Work Phone: 7(300)110-027972 [place] [address] 09-20-2024 15:44-0500 SaO2% (BldA) [Mass fraction] 100 % Dr. Rochelle Hackett MD Work Phone: 8(914)121-574172 [place] [address] 09-20-2024 15:44-0500 Systolic blood pressure 152 mm[Hg] Dr. Rochelle Hackett MD Work Phone: 5(848)558-241072 [place] [address] 09-20-2024 14:48-0500 Body mass index (BMI) [Ratio] 18.7 kg/m2 Dr. Rochelle Hackett MD Work Phone: 3(846)652-574772 [place] [address] 09-20-2024 14:48-0500 Body weight 54.[address] Rochelle Hackett MD Work Phone: 2(884)358-522172 [place] [address] 09-09-2024 11:17-0500 Body mass index (BMI) [Ratio] 18.9 kg/m2 Dr. Rochelle Hackett MD Work Phone: 3(290)054-175372 [place] [address] 09-09-2024 11:17-0500 Body weight 54.[address] Rochelle Hackett MD Work Phone: 5(030)970-316872 [place] [address] 09-09-2024 11:17-0500 Diastolic blood pressure 74 mm[Hg] Dr. Rochelle Hackett MD Work Phone: 0(002)234-019472 [place] [address] 09-09-2024 11:17-0500 Heart rate 61 /min Dr. Rochelle Hackett MD Work Phone: 9(162)177-368172 [place] [address] 09-09-2024 11:17-0500 Respiratory rate 16 /min Dr. Rochelle Hackett MD Work Phone: 1(626)813-370472 [place] [address] 09-09-2024 11:17-0500 Systolic blood pressure 130 mm[Hg] Dr. Rochelle Hackett MD Work Phone: 6(668)241-265172 [place] [address] 05-18-2024 09:42-0400 Body mass index (BMI) [Ratio] 18.51 kg/m2 Rochelle Hackett MD Work Phone: [facility] 05-18-2024 09:42-0400 Body weight 53.62 kg Rochelle Hackett MD Work Phone: [facility] 05-18-2024 09:42-0400 Diastolic blood pressure 72 mm[Hg] Rochelle Hackett MD Work Phone: [facility] 05-18-2024 09:42-0400 Heart rate 68 /min Rochelle Hackett MD Work Phone: [facility] 05-18-2024 09:42-0400 Respiratory rate 16 /min Rochelle Hackett MD Work Phone: [facility] 05-18-2024 09:42-0400 Systolic blood pressure 128 mm[Hg] Rochelle Hackett MD Work Phone: [facility] 04-12-2024 09:04-0400 Body height 170.2 cm Rochelle Hackett MD Work Phone: [facility] 04-12-2024 09:04-0400 Body mass index (BMI) [Ratio] 18.48 kg/m2 Rochelle Hackett MD Work Phone: [facility] 04-12-2024 09:04-0400 Body weight 53.52 kg Rochelle Hackett MD Work Phone: [facility] 04-12-2024 09:04-0400 Diastolic blood pressure 74 mm[Hg] Rochelle Hackett MD Work Phone: [facility] 04-12-2024 09:04-0400 Heart rate 84 /min Rochelle Hackett MD Work Phone: [facility] 04-12-2024 09:04-0400 Respiratory rate 16 /min Rochelle Hackett MD Work Phone: [facility] 04-12-2024 09:04-0400 Systolic blood pressure 126 mm[Hg] Rochelle Hackett MD Work Phone: [facility] 03-28-2024 14:49-0400 Body temperature 96.7 [degF] Dr. Rochelle Hackett MD Work Phone: 4(334)864-375472 [place] [address] 01-23-2024 16:06-0400 Body temperature 98.1 [degF] Dr. Rochelle Hackett Work Phone: 9(842)454-576472 [place] [address] 01-23-2024 16:06-0400 Diastolic blood pressure 87 mm[Hg] Dr. Rochelle Hackett Work Phone: 6(488)125-395372 [place] [address] 01-23-2024 16:06-0400 Heart rate 80 /min Dr. Rochelle Hackett Work Phone: 7(572)875-279772 [place] [address] 01-23-2024 16:06-0400 Respiratory rate 18 /min Dr. Rochelle Hackett Work Phone: 1(643)400-231672 [place] [address] 01-23-2024 16:06-0400 SaO2% (BldA) [Mass fraction] 96 % Dr. Rochelle Hackett Work Phone: 5(050)165-603572 [place] [address] 01-23-2024 16:06-0400 Systolic blood pressure 172 mm[Hg] Dr. Rochelle Hackett Work Phone: 7(030)676-806272 [place] [address] 01-23-2024 14:06-0400 Body height 170.[address] Rochelle Hackett Work Phone: 1(342)063-842872 [place] [address] 01-23-2024 14:06-0400 Body mass index (BMI) [Ratio] 18.5 kg/m2 Dr. Rochelle Hackett Work Phone: 3(206)948-163172 [place] [address] 01-23-2024 14:06-0400 Body weight 53.[address] Rochelle Hackett Work Phone: 7(614)238-068772 [place] [address] 01-18-2024 11:10-0400 Body mass index (BMI) [Ratio] 18.3 kg/m2 Dr. Rochelle Hackett Work Phone: 5(063)066-452672 [place] [address] 01-18-2024 11:10-0400 Body weight 53.[address] Rochelle Hackett Work Phone: 8(211)143-774572 [place] [address] 01-18-2024 11:10-0400 Diastolic blood pressure 76 mm[Hg] Dr. Rochlele Hackett Work Phone: 6(597)876-951972 [place] [address] 01-18-2024 11:10-0400 Heart rate 62 /min Dr. Rochelle Hackett Work Phone: 7(047)264-423872 [place] [address] 01-18-2024 11:10-0400 Respiratory rate 18 /min Dr. Rochelle Hackett Work Phone: 8(668)786-503072 [place] [address] 01-18-2024 11:10-0400 SaO2% (BldA) [Mass fraction] 10 % Dr. Rochelle Hackett Work Phone: 7(264)109-546072 [place] [address] 01-18-2024 11:10-0400 Systolic blood pressure 141 mm[Hg] Dr. Rochelle Hackett Work Phone: 2(986)766-400772 [place] [address] 12-29-2023 13:45-0400 Body height 170.[address] Rochelle Hackett Work Phone: 6(104)400-248172 [place] [address] 12-29-2023 13:45-0400 Body mass index (BMI) [Ratio] 18.6 kg/m2 Dr. Rochelle Hackett Work Phone: 1(769)791-966672 [place] [address] 12-29-2023 13:45-0400 Body temperature 98 [degF] Dr. Rochelle Hackett Work Phone: 2(390)516-686172 [place] [address] 12-29-2023 13:45-0400 Body weight 54.[address] Rochelle Hackett Work Phone: 8(642)855-691672 [place] [address] 12-29-2023 13:45-0400 Diastolic blood pressure 72 mm[Hg] Dr. Rochelle Hackett Work Phone: 1(935)719-809572 [place] [address] 12-29-2023 13:45-0400 Heart rate 68 /min Dr. Rochelle Hackett Work Phone: 6(135)954-201472 [place] [address] 12-29-2023 13:45-0400 Respiratory rate 16 /min Dr. Rochelle Hackett Work Phone: 1(804)041-418272 [place] [address] 12-29-2023 13:45-0400 SaO2% (BldA) [Mass fraction] 99 % Dr. Rochelle Hackett Work Phone: [facility] 12-29-2023 13:45-0400 Systolic blood pressure 116 mm[Hg] Dr. Rochelle Hackett Work Phone: [facility] 12-15-2023 14:11-0400 Diastolic blood pressure 81 mm[Hg] Sara Rangel BE[employer].SPACE ENGINEER Work Phone: [facility] 12-15-2023 14:11-0400 Heart rate 76 /min Sara Rangel BE[employer].SPACE ENGINEER Work Phone: [facility] 12-15-2023 14:11-0400 Systolic blood pressure 145 mm[Hg] Sara Rangel BEET [employer].SPACE ENGINEER Work Phone: [facility] 12-15-2023 14:09-0400 Body weight 53.52 kg Sara Rangel BEET [employer]PER.SPACE ENGINEER Work Phone: [facility] 12-15-2023 14:09-0400 Respiratory rate 16 /min [facility] [employer]SPACE ENGINEER Work Phone: [facility] 12-08-2023 22:48-0400 Body temperature 98.7 [degF] Dr. Rochelle Hackett Work Phone: [facility] 12-08-2023 22:48-0400 Diastolic blood pressure 57 mm[Hg] Dr. Rochelle Hackett Work Phone: [facility] 12-08-2023 22:48-0400 Heart rate 70 /min Dr. Rochelle Hackett Work Phone: [facility] 12-08-2023 22:48-0400 Respiratory rate 17 /min Dr. Rochelle Hackett Work Phone: [facility] 12-08-2023 22:48-0400 SaO2% (BldA) [Mass fraction] 97 % Dr. Rochelle Hackett Work Phone: [facility] 12-08-2023 22:48-0400 Systolic blood pressure 137 mm[Hg] Dr. Rochelle Hackett Work Phone: 4(719)328-579872 [place] [address] 12-08-2023 20:29-0400 Body height 170.[address] Rochelle Hackett Work Phone: 7(013)932-754872 [place] [address] 12-08-2023 20:29-0400 Body mass index (BMI) [Ratio] 19.1 kg/m2 Dr. Rochelle Hackett Work Phone: 6(126)145-401872 [place] [address] 12-08-2023 20:29-0400 Body weight 55.[address] Rochelle Hackett Work Phone: 2(101)705-746472 [place] [address] 11-26-2023 13:47-0400 Body mass index (BMI) [Ratio] 18.8 kg/m2 Dr. Rochelle Hackett Work Phone: 7(952)678-553672 [place] [address] 11-26-2023 13:47-0400 Body temperature 98 [degF] Dr. Rochelle Hackett Work Phone: 8(690)486-323472 [place] [address] 11-26-2023 13:47-0400 Body weight 54.[address] Rochelle Hackett Work Phone: 4(510)253-168972 [place] [address] 11-26-2023 13:47-0400 Diastolic blood pressure 70 mm[Hg] Dr. Rochelle Hackett Work Phone: 8(654)451-174172 [place] [address] 11-26-2023 13:47-0400 Heart rate 67 /min Dr. Rochelle Hackett Work Phone: 2(052)433-346772 [place] [address] 11-26-2023 13:47-0400 Respiratory rate 17 /min Dr. Rochelle Hackett Work Phone: 9(775)095-350572 [place] [address] 11-26-2023 13:47-0400 SaO2% (BldA) [Mass fraction] 99 % Dr. Rochelle Hackett Work Phone: 3(071)230-894472 [place] [address] 11-26-2023 13:47-0400 Systolic blood pressure 122 mm[Hg] Dr. Rochelle Hackett Work Phone: 6(502)180-575772 [place] [address] 11-22-2023 16:13-0400 Body temperature 98.3 [degF] Dr. Rochelle Hackett Work Phone: 5(835)506-131672 [place] [address] 11-22-2023 16:13-0400 Diastolic blood pressure 49 mm[Hg] Dr. Rochelle Hackett Work Phone: 8(464)421-846972 [place] [address] 11-22-2023 16:13-0400 Heart rate 66 /min Dr. Rochelle Hackett Work Phone: 5(616)238-893572 [place] [address] 11-22-2023 16:13-0400 Respiratory rate 16 /min Dr. Rochelle Hackett Work Phone: 5(676)606-443872 [place] [address] 11-22-2023 16:13-0400 SaO2% (BldA) [Mass fraction] 97 % Dr. Rochelle Hackett Work Phone: 0(751)250-325272 [place] [address] 11-22-2023 16:13-0400 Systolic blood pressure 122 mm[Hg] Dr. Rochelle Hackett Work Phone: 5(247)713-477972 [place] [address] 11-22-2023 06:00-0400 Body mass index (BMI) [Ratio] 18 kg/m2 Dr. Rochelle Hackett Work Phone: 2(641)550-875572 [place] [address] 11-22-2023 06:00-0400 Body weight 52.[address] Rochelle Hackett Work Phone: 6(299)010-936672 [place] [address] 11-22-2023 01:29-0500 Body height 170.[address] Rochelle Hackett Work Phone: 1(615)213-720572 [place] [address] 11-21-2023 23:41-0500 Body temperature 97.6 [degF] Dr. Rochelle Hackett Work Phone: 3(974)928-935072 [place] [address] 11-21-2023 23:41-0500 Diastolic blood pressure 66 mm[Hg] Dr. Rochelle Hackett Work Phone: 7(069)348-383272 [place] [address] 11-21-2023 23:41-0500 Heart rate 78 /min Dr. Rochelle Hackett Work Phone: 4(360)470-096072 [place] [address] 11-21-2023 23:41-0500 Respiratory rate 17 /min Dr. Rochelle Hackett Work Phone: [facility] 11-21-2023 23:41-0500 SaO2% (BldA) [Mass fraction] 98 % Dr. Rochelle Hackett Work Phone: [facility] 11-21-2023 23:41-0500 Systolic blood pressure 135 mm[Hg] Dr. Rochelle Hackett Work Phone: [facility] 11-21-2023 19:36-0500 Body height 170.[address] Rochelle Hackett Work Phone: [facility] 11-21-2023 19:36-0500 Body mass index (BMI) [Ratio] 18.1 kg/m2 Dr. Rochelle Hackett Work Phone: [facility] 11-21-2023 19:36-0500 Body weight 52.[address] Rochelle Hackett Work Phone: [facility] 11-02-2023 15:20-0500 Body weight 53.66 kg Irish Kelvin 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 Work Phone: [facility] 11-02-2023 15:20-0500 Diastolic blood pressure 64 mm[Hg] Irish Kelvin 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 Work Phone: [facility] 11-02-2023 15:20-0500 Heart rate 64 /min Irish Kelvin 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 Work Phone: [facility] 11-02-2023 15:20-0500 Respiratory rate 16 /min Irish Kelvin 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 Work Phone: [facility] 11-02-2023 15:20-0500 SaO2% (BldA) [Mass fraction] 99 % Irish Kelvin 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 Work Phone: [facility] 11-02-2023 15:20-0500 Systolic blood pressure 122 mm[Hg] Irish Kelvin 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 Work Phone: [facility] 10-26-2023 13:47-0500 Body mass index (BMI) [Ratio] 18.7 kg/m2 Dr. Rochelle Hackett Work Phone: 7(779)384-752572 [place] [address] 10-26-2023 13:47-0500 Body temperature 97.8 [degF] Dr. Rochelle Hackett Work Phone: 3(142)821-716372 [place] [address] 10-26-2023 13:47-0500 Body weight 54.[address] Rochelle Hackett Work Phone: 7(506)923-744772 [place] [address] 10-26-2023 13:47-0500 Diastolic blood pressure 90 mm[Hg] Dr. Rochelle Hackett Work Phone: 5(494)600-346972 [place] [address] 10-26-2023 13:47-0500 Heart rate 68 /min Dr. Rochelle Hackett Work Phone: 2(930)708-337672 [place] [address] 10-26-2023 13:47-0500 Respiratory rate 17 /min Dr. Rochelle Hackett Work Phone: 7(671)038-122172 [place] [address] 10-26-2023 13:47-0500 SaO2% (BldA) [Mass fraction] 99 % Dr. Rochelle Hackett Work Phone: 8(872)931-781172 [place] [address] 10-26-2023 13:47-0500 Systolic blood pressure 144 mm[Hg] Dr. Rochelle Hackett Work Phone: 7(493)867-034672 [place] [address] 10-08-2023 11:39-0500 Body height 170.[address] Rochelle Hackett Work Phone: 5(582)973-187172 [place] [address] 10-08-2023 11:39-0500 Body mass index (BMI) [Ratio] 18.6 kg/m2 Dr. Rochelle Hackett Work Phone: 8(846)112-163172 [place] [address] 10-08-2023 11:39-0500 Body temperature 97.3 [degF] Dr. Rochelle Hackett Work Phone: 1(845)356-002072 [place] [address] 10-08-2023 11:39-0500 Body weight 54.[address] Rochelle Hackett Work Phone: 7(881)342-796072 [place] [address] 10-08-2023 11:39-0500 Diastolic blood pressure 82 mm[Hg] Dr. Rochelle Hackett Work Phone: 4(377)068-828272 [place] [address] 10-08-2023 11:39-0500 Heart rate 66 /min Dr. Rochelle Hackett Work Phone: 8(460)385-342372 [place] [address] 10-08-2023 11:39-0500 Respiratory rate 18 /min Dr. Rochelle Hackett Work Phone: 0(635)407-298072 [place] [address] 10-08-2023 11:39-0500 SaO2% (BldA) [Mass fraction] 99 % Dr. Rochelle Hackett Work Phone: 0(807)770-239172 [place] [address] 10-08-2023 11:39-0500 Systolic blood pressure 162 mm[Hg] Dr. Rochelle Hackett Work Phone: 7(596)861-895072 [place] [address] 10-01-2023 16:27-0500 Body temperature 98 [degF] Dr. Rochelle Hackett Work Phone: 7(526)798-811072 [place] [address] 10-01-2023 16:27-0500 Diastolic blood pressure 84 mm[Hg] Dr. Rochelle Hackett Work Phone: 0(909)299-870872 [place] [address] 10-01-2023 16:27-0500 Heart rate 67 /min Dr. Rochelle Hackett Work Phone: 7(559)273-879372 [place] [address] 10-01-2023 16:27-0500 Respiratory rate 16 /min Dr. Rochelle Hackett Work Phone: 9(495)082-137472 [place] [address] 10-01-2023 16:27-0500 SaO2% (BldA) [Mass fraction] 100 % Dr. Rochelle Hackett Work Phone: 7(626)464-153272 [place] [address] 10-01-2023 16:27-0500 Systolic blood pressure 167 mm[Hg] Dr. Rochelle Hackett Work Phone: 0(869)119-441072 [place] [address] 10-01-2023 15:35-0500 Body mass index (BMI) [Ratio] 18.6 kg/m2 Dr. Rochelle Hackett Work Phone: 6(297)282-656972 [place] [address] 10-01-2023 14:00-0500 Body mass index (BMI) [Ratio] 18.6 kg/m2 Dr. Rochelle Hackett Work Phone: 1(724)457-756999 [place] [address] 10-01-2023 14:00-0500 Body temperature 97.6 [degF] Dr. Rochelle Hackett Work Phone: 6(075)759-832972 [place] [address] 10-01-2023 14:00-0500 Body weight 54.[address] Rochelle Hackett Work Phone: 2(029)590-916272 [place] [address] 10-01-2023 14:00-0500 Diastolic blood pressure 77 mm[Hg] Dr. Rochelle Hackett Work Phone: 9(115)290-441972 [place] [address] 10-01-2023 14:00-0500 Heart rate 67 /min Dr. Rochelle Hackett Work Phone: 2(618)628-974872 [place] [address] 10-01-2023 14:00-0500 Respiratory rate 18 /min Dr. Rochelle Hackett Work Phone: 0(604)520-875572 [place] [address] 10-01-2023 14:00-0500 SaO2% (BldA) [Mass fraction] 100 % Dr. Rochelle Hackett Work Phone: 0(384)446-700372 [place] [address] 10-01-2023 14:00-0500 Systolic blood pressure 143 mm[Hg] Dr. Rochelle Hackett Work Phone: 8(761)035-561972 [place] [address] 09-22-2023 09:51-0500 Diastolic blood pressure 70 mm[Hg] Dr. Rochelle Hackett Work Phone: 4(159)190-350072 [place] [address] 09-22-2023 09:51-0500 Heart rate 69 /min Dr. Rochelle Hackett Work Phone: 3(405)206-263072 [place] [address] 09-22-2023 09:51-0500 Systolic blood pressure 96 mm[Hg] Dr. Rochelle Hackett Work Phone: 4(065)172-206272 [place] [address] 09-22-2023 07:56-0500 Body mass index (BMI) [Ratio] 18.6 kg/m2 Dr. Rochelle Hackett Work Phone: 0(596)572-679972 [place] [address] 09-22-2023 07:56-0500 Body temperature 97.8 [degF] Dr. Rochelle Hackett Work Phone: 5(999)894-173899 [place] [address] 09-22-2023 07:56-0500 Body weight 53.[address] Rochelle Hackett Work Phone: 5(426)655-777772 [place] [address] 09-22-2023 07:56-0500 Respiratory rate 17 /min Dr. Rochelle Hackett Work Phone: 5(099)062-987272 [place] [address] 09-22-2023 07:56-0500 SaO2% (BldA) [Mass fraction] 98 % Dr. Rochelle Hackett Work Phone: 1(400)277-906972 [place] [address] 08-29-2023 11:51-0500 Body height 170.[address] Rochelle Hackett Work Phone: 8(677)858-985072 [place] [address] 08-29-2023 11:51-0500 Body temperature 98 [degF] Dr. Rochelle Hackett Work Phone: 2(375)631-622272 [place] [address] 08-29-2023 11:51-0500 Diastolic blood pressure 121 mm[Hg] Dr. Rochelle Hackett Work Phone: 0(534)031-895172 [place] [address] 08-29-2023 11:51-0500 Heart rate 78 /min Dr. Rochelle Hackett Work Phone: 3(173)880-925772 [place] [address] 08-29-2023 11:51-0500 Respiratory rate 18 /min Dr. Rochelle Hackett Work Phone: 5(533)292-057572 [place] [address] 08-29-2023 11:51-0500 SaO2% (BldA) [Mass fraction] 100 % Dr. Rochelle Hackett Work Phone: 6(715)428-821472 [place] [address] 08-29-2023 11:51-0500 Systolic blood pressure 154 mm[Hg] Dr. Rochelle Hackett Work Phone: 1(737)239-132472 [place] [address] 07-23-2023 11:16-0500 Body temperature 98 [degF] Dr. Rochelle Hackett Work Phone: 4(633)533-218072 [place] [address] 07-23-2023 11:16-0500 Diastolic blood pressure 70 mm[Hg] Dr. Rochelle Hackett Work Phone: 2(181)244-263172 [place] [address] 07-23-2023 11:16-0500 Heart rate 61 /min Dr. Rochelle Hackett Work Phone: 8(187)973-404272 [place] [address] 07-23-2023 11:16-0500 Respiratory rate 16 /min Dr. Rochelle Hackett Work Phone: 6(991)961-429572 [place] [address] 07-23-2023 11:16-0500 Systolic blood pressure 162 mm[Hg] Dr. Rochelle Hackett Work Phone: 7(566)608-949272 [place] [address] 07-23-2023 09:13-0500 Body mass index (BMI) [Ratio] 19 kg/m2 Dr. Rochelle Hackett Work Phone: 2(021)724-165472 [place] [address] 07-23-2023 09:13-0500 Body weight [address] Rochelle Hackett Work Phone: 0(657)624-294772 [place] [address] 07-23-2023 09:11-0500 Body height 170.[address] Rochelle Hackett Work Phone: 6(984)268-004672 [place] [address] 07-23-2023 09:11-0500 SaO2% (BldA) [Mass fraction] 100 % Dr. Rochelle Hackett Work Phone: 0(439)183-062972 [place] [address] 07-15-2023 09:07-0400 Body height 170.[address] Rochelle Hackett Work Phone: 2(265)584-283572 [place] [address] 07-15-2023 09:07-0400 Body mass index (BMI) [Ratio] 18.4 kg/m2 Dr. Rochelle Hackett Work Phone: 4(570)721-567372 [place] [address] 07-15-2023 09:07-0400 Body weight 53.[address] Rochelle Hackett Work Phone: 3(746)065-069772 [place] [address] 07-15-2023 09:07-0400 Diastolic blood pressure 79 mm[Hg] Dr. Rochelle Hackett Work Phone: 4(232)651-661272 [place] [address] 07-15-2023 09:07-0400 Heart rate 59 /min Dr. Rochelle Hackett Work Phone: 0(769)863-847072 [place] [address] 07-15-2023 09:07-0400 Respiratory rate 18 /min Dr. Rochelle Hackett Work Phone: [facility] 07-15-2023 09:07-0400 SaO2% (BldA) [Mass fraction] 100 % Dr. Rochelle Hackett Work Phone: [facility] 07-15-2023 09:07-0400 Systolic blood pressure 140 mm[Hg] Dr. Rochelle Hackett Work Phone: [facility] 07-09-2023 12:59-0400 Body weight 54.43 kg Al Older 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 Work Phone: [facility] 07-09-2023 12:59-0400 Diastolic blood pressure 80 mm[Hg] Al Older 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 Work Phone: [facility] 07-09-2023 12:59-0400 Heart rate 62 /min Al Older 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 Work Phone: [facility] 07-09-2023 12:59-0400 Respiratory rate 16 /min Al Older 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 Work Phone: [facility] 07-09-2023 12:59-0400 SaO2% (BldA) [Mass fraction] 99 % Al Older 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 Work Phone: [facility] 07-09-2023 12:59-0400 Systolic blood pressure 130 mm[Hg] Al Older 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 Work Phone: [facility] 05-08-2023 08:00-0400 Body temperature 97.39 [degF] Al Older 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 Work Phone: [facility] 05-08-2023 08:00-0400 Body weight 52.62 kg Al Older 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 Work Phone: [facility] 05-08-2023 08:00-0400 Diastolic blood pressure 80 mm[Hg] Al Older 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 Work Phone: [facility] 05-08-2023 08:00-0400 Heart rate 60 /min Al Older 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 Work Phone: [facility] 05-08-2023 08:00-0400 Respiratory rate 16 /min Al Older 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 Work Phone: [facility] 05-08-2023 08:00-0400 Systolic blood pressure 128 mm[Hg] Al Older 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 Work Phone: [facility] 04-25-2023 19:22-0400 Diastolic blood pressure 82 mm[Hg] Dr. Rochelle Hackett Work Phone: [facility] 04-25-2023 19:22-0400 Heart rate 86 /min Dr. Rochelle Hackett Work Phone: [facility] 04-25-2023 19:22-0400 Respiratory rate 16 /min Dr. Rochelle Hackett Work Phone: [facility] 04-25-2023 19:22-0400 SaO2% (BldA) [Mass fraction] 98 % Dr. Rochelle Hackett Work Phone: 2(698)313-643699 [place] [address] 04-25-2023 19:22-0400 Systolic blood pressure 136 mm[Hg] Dr. Rochelle Hackett Work Phone: 3(346)352-067372 [place] [address] 04-25-2023 16:13-0400 Body height 170.[address] Rochelle Hackett Work Phone: 2(138)589-049972 [place] [address] 04-25-2023 16:13-0400 Body mass index (BMI) [Ratio] 18.3 kg/m2 Dr. Rochelle Hackett Work Phone: 6(197)744-047699 [place] [address] 04-25-2023 16:13-0400 Body temperature 97.1 [degF] Dr. Rochelle Hackett Work Phone: 7(907)927-894072 [place] [address] 04-25-2023 16:13-0400 Body weight 53.[address] Rochelle Hackett Work Phone: 0(080)761-110099 [place] [address] 04-23-2023 09:33-0400 Body mass index (BMI) [Ratio] 18.5 kg/m2 Dr. Rochelle Hackett Work Phone: [facility] 04-23-2023 09:33-0400 Body weight 53.[address] oRchelle Hackett Work Phone: [facility] 04-23-2023 09:33-0400 Diastolic blood pressure 67 mm[Hg] Dr. Rochelle Hackett Work Phone: [facility] 04-23-2023 09:33-0400 Heart rate 68 /min Dr. Rochelle Hackett Work Phone: [facility] 04-23-2023 09:33-0400 Respiratory rate 18 /min Dr. Rochelle Hackett Work Phone: [facility] 04-23-2023 09:33-0400 SaO2% (BldA) [Mass fraction] 100 % Dr. Rochelle Hackett Work Phone: [facility] 04-23-2023 09:33-0400 Systolic blood pressure 130 mm[Hg] Dr. Rochelle Hackett Work Phone: [facility] 04-16-2023 07:19-0400 Diastolic blood pressure 82 mm[Hg] Sara Rangel BEET TOPPER.SPACE ENGINEER Work Phone: [facility] 04-16-2023 07:19-0400 Systolic blood pressure 138 mm[Hg] Sara Rangel BEET TOPPER.SPACE ENGINEER Work Phone: [facility] 04-16-2023 07:13-0400 Body temperature 96.01 [degF] Sara Rangel BEET TOPPER.SPACE ENGINEER Work Phone: [facility] 04-16-2023 07:13-0400 Body weight 53.52 kg Sara Rangel BEET TOPPER.SPACE ENGINEER Work Phone: [facility] 04-16-2023 07:13-0400 Heart rate 66 /min Sara Rangel BEET TOPPER.SPACE ENGINEER Work Phone: [facility] 04-16-2023 07:13-0400 Respiratory rate 18 /min Sara Rangel BEET TOPPER.SPACE ENGINEER Work Phone: [facility] 04-16-2023 07:13-0400 SaO2% (BldA) [Mass fraction] 99 % Sara Rangel APRNDennisBERT Work Phone: [facility] 04-09-2023 15:50-0400 Body height 170.[address] Rochelle Hackett Work Phone: 7(394)266-946272 [place] [address] 04-09-2023 15:50-0400 Body mass index (BMI) [Ratio] 18.6 kg/m2 Dr. Rochelle Hackett Work Phone: 6(085)298-138472 [place] [address] 04-09-2023 15:50-0400 Body weight 53.[address] Rochelle Hackett Work Phone: 1(717)835-381272 [place] [address] 04-09-2023 14:34-0400 Body mass index (BMI) [Ratio] 18.6 kg/m2 Dr. Rochelle Hackett Work Phone: 2(255)770-724972 [place] [address] 04-09-2023 14:34-0400 Body temperature 97.1 [degF] Dr. Rochelle Hackett Work Phone: 8(736)808-774072 [place] [address] 04-09-2023 14:34-0400 Body weight 53.[address] Rochelle Hackett Work Phone: 5(714)917-707072 [place] [address] 04-09-2023 14:34-0400 Diastolic blood pressure 76 mm[Hg] Dr. Rochelle Hackett Work Phone: 1(746)621-258172 [place] [address] 04-09-2023 14:34-0400 Heart rate 56 /min Dr. Rochelle Hackett Work Phone: 5(607)528-276172 [place] [address] 04-09-2023 14:34-0400 Respiratory rate 16 /min Dr. Rochelle Hackett Work Phone: 5(535)098-719372 [place] [address] 04-09-2023 14:34-0400 SaO2% (BldA) [Mass fraction] 100 % Dr. Rochelle Hackett Work Phone: 2(654)153-450472 [place] [address] 04-09-2023 14:34-0400 Systolic blood pressure 150 mm[Hg] Dr. Rochelle Hackett Work Phone: 5(284)655-050699 [place] [address] 04-08-2023 19:34-0400 Diastolic blood pressure 78 mm[Hg] Dr. Rochelle Hackett Work Phone: 7(849)128-467772 [place] [address] 04-08-2023 19:34-0400 Heart rate 64 /min Dr. Rochelle Hackett Work Phone: 5(746)301-511872 [place] [address] 04-08-2023 19:34-0400 Respiratory rate 14 /min Dr. Rochelle Hackett Work Phone: 3(496)601-600972 [place] [address] 04-08-2023 19:34-0400 SaO2% (BldA) [Mass fraction] 100 % Dr. Rochelle Hackett Work Phone: 6(789)499-744172 [place] [address] 04-08-2023 19:34-0400 Systolic blood pressure 119 mm[Hg] Dr. Rochelle Hackett Work Phone: 0(440)937-439072 [place] [address] 04-08-2023 14:05-0400 Body height 170.[address] Rochelle Hackett Work Phone: 7(468)648-372072 [place] [address] 04-08-2023 14:05-0400 Body mass index (BMI) [Ratio] 18.5 kg/m2 Dr. Rochelle Hackett Work Phone: 1(464)135-258972 [place] [address] 04-08-2023 14:05-0400 Body temperature 97.7 [degF] Dr. Rochelle Hackett Work Phone: 2(330)425-085472 [place] [address] 04-08-2023 14:05-0400 Body weight 53.[address] Rochelle Hackett Work Phone: 4(310)203-505572 [place] [address] 04-07-2023 19:13-0400 Diastolic blood pressure 70 mm[Hg] Dr. Rochelle Hackett Work Phone: 8(971)739-512472 [place] [address] 04-07-2023 19:13-0400 Heart rate 65 /min Dr. Rochelle Hackett Work Phone: 8(657)239-535972 [place] [address] 04-07-2023 19:13-0400 Systolic blood pressure 126 mm[Hg] Dr. Rochelle Hackett Work Phone: 4(487)802-923372 [place] [address] 04-07-2023 13:38-0400 Body mass index (BMI) [Ratio] 18.5 kg/m2 Dr. Rochelle Hackett Work Phone: 1(491)594-803172 [place] [address] 04-07-2023 13:38-0400 Body temperature 97.6 [degF] Dr. Rochelle Hackett Work Phone: 4(833)106-349372 [place] [address] 04-07-2023 13:38-0400 Body weight 53.[address] Rochelle Hackett Work Phone: 6(306)690-070472 [place] [address] 04-07-2023 13:38-0400 Respiratory rate 16 /min Dr. Rochelle Hackett Work Phone: 2(775)306-616172 [place] [address] 04-07-2023 13:38-0400 SaO2% (BldA) [Mass fraction] 99 % Dr. Rochelle Hackett Work Phone: 1(086)295-846272 [place] [address] 01-19-2023 11:06-0400 Diastolic blood pressure 60 mm[Hg] Dr. Rochelle Hackett Work Phone: 4(382)645-141072 [place] [address] 01-19-2023 11:06-0400 Systolic blood pressure 110 mm[Hg] Dr. Rochelle Hackett Work Phone: 4(553)683-451672 [place] [address] 01-19-2023 11:06-0400 Body mass index (BMI) [Ratio] 18.3 kg/m2 Dr. Rochelle Hackett Work Phone: 2(566)228-488472 [place] [address] 01-19-2023 11:06-0400 Body weight 53.[address] Rochelle Hackett Work Phone: 8(718)731-858472 [place] [address] 01-19-2023 11:06-0400 Heart rate 62 /min Dr. Rochelle Hackett Work Phone: 1(112)226-998772 [place] [address] 01-19-2023 11:06-0400 Respiratory rate 18 /min Dr. Rochelle Hackett Work Phone: 6(081)078-080572 [place] [address] 01-19-2023 11:06-0400 SaO2% (BldA) [Mass fraction] 100 % Dr. Rochelle Hackett Work Phone: 8(558)679-415872 [place] [address] 11-14-2022 08:33-0500 Body height 170.2 cm Rochelle Hackett MD Work Phone: 7(626)914-075536 [place] [address] 11-14-2022 08:33-0500 Body temperature 96.01 [degF] Rochelle Hackett MD Work Phone: 0(403)223-282036 [place] [address] 11-14-2022 08:33-0500 Body weight 51.71 kg Rochelle Hackett MD Work Phone: 9(786)449-728536 [place] [address] 11-14-2022 08:33-0500 Diastolic blood pressure 62 mm[Hg] Rochelle Hackett MD Work Phone: 3(904)071-352636 [place] [address] 11-14-2022 08:33-0500 Heart rate 64 /min Rochelle Hackett MD Work Phone: 5(577)586-577336 [place] [address] 11-14-2022 08:33-0500 Respiratory rate 12 /min Rochelle Hackett MD Work Phone: 2(655)824-067436 [place] [address] 11-14-2022 08:33-0500 SaO2% (BldA) [Mass fraction] 100 % Rochelle Hackett MD Work Phone: 7(025)291-012036 [place] [address] 11-14-2022 08:33-0500 Systolic blood pressure 122 mm[Hg] Rochelle Hackett MD Work Phone: 6(374)186-840336 [place] [address] 10-14-2022 17:14-0500 Diastolic blood pressure 58 mm[Hg] Dr. Rochelle Hackett Work Phone: 0(033)428-541699 [place] [address] 10-14-2022 17:14-0500 Heart rate 82 /min Dr. Rochelle Hackett Work Phone: 4(123)919-388272 [place] [address] 10-14-2022 17:14-0500 Systolic blood pressure 110 mm[Hg] Dr. Rochelle Hackett Work Phone: 7(282)148-115172 [place] [address] 10-14-2022 13:59-0500 Body height 170.[address] Rochelle Hackett Work Phone: 1(559)364-278572 [place] [address] 10-14-2022 13:59-0500 Body mass index (BMI) [Ratio] 18.7 kg/m2 Dr. Rochelle Hackett Work Phone: 5(471)670-345799 [place] [address] 10-14-2022 13:59-0500 Body temperature 98.4 [degF] Dr. Rochelle Hackett Work Phone: 3(820)072-449072 [place] [address] 10-14-2022 13:59-0500 Body weight 54.[address] Rochelle Hackett Work Phone: 5(077)575-969172 [place] [address] 10-14-2022 13:59-0500 Respiratory rate 17 /min Dr. Rochelle Hackett Work Phone: 9(831)[phone] [place] [address] 10-14-2022 13:59-0500 SaO2% (BldA) [Mass fraction] 99 % Dr. Rochelle Hackett Work Phone: 8(108)[phone] [place] [address] 10-08-2022 13:27-0500 Body mass index (BMI) [Ratio] 18.3 kg/m2 Dr. Rochelle Hackett Work Phone: [phone])[phone] [place] [address] 10-08-2022 13:27-0500 Body temperature 97.4 [degF] Dr. Rochelle Hackett Work Phone: [phone])[phone] [place] [address] 10-08-2022 13:27-0500 Body weight 53.[address] Rochelle Hackett Work Phone: 8(221)[phone] [place] [address] 10-08-2022 13:27-0500 Diastolic blood pressure 81 mm[Hg] Dr. Rochelle Hackett Work Phone: 7(989)[phone] [place] [address] 10-08-2022 13:27-0500 Heart rate 65 /min Dr. Rochelle Hackett Work Phone: 7(287)[phone] [place] [address] 10-08-2022 13:27-0500 Respiratory rate 16 /min Dr. Rochelle Hackett Work Phone: 4(591)[phone] [place] [address] 10-08-2022 13:27-0500 SaO2% (BldA) [Mass fraction] 97 % Dr. Rochelle Hackett Work Phone: 2(558)[phone] [place] [address] 10-08-2022 13:27-0500 Systolic blood pressure 149 mm[Hg] Dr. Rochelle Hackett Work Phone: [facility] 09-05-2022 17:40-0500 Body temperature 98.4 [degF] Ron Wong MD Work Phone: [facility] 09-05-2022 17:40-0500 Body weight 53.43 kg Ron Wong MD Work Phone: [facility] 09-05-2022 17:40-0500 Diastolic blood pressure 82 mm[Hg] Ron Wong MD Work Phone: [facility] 09-05-2022 17:40-0500 Heart rate 70 /min Ron Wong MD Work Phone: [facility] 09-05-2022 17:40-0500 Respiratory rate 18 /min Ron Wong MD Work Phone: [facility] 09-05-2022 17:40-0500 SaO2% (BldA) [Mass fraction] 99 % Ron Wong MD Work Phone: [facility] 09-05-2022 17:40-0500 Systolic blood pressure 138 mm[Hg] Ron Wong MD Work Phone: [facility] 08-19-2022 08:52-0500 Body temperature 97.59 [degF] Lori Patel APRN.MEAT STOCK CLERK Work Phone: [facility] 08-19-2022 08:52-0500 Body weight 52.34 kg Lori Patel APRN.MEAT STOCK CLERK Work Phone: [facility] 08-19-2022 08:52-0500 Diastolic blood pressure 84 mm[Hg] Lori Patel APRN.MEAT STOCK CLERK Work Phone: [facility] 08-19-2022 08:52-0500 Heart rate 74 /min Lori Patel APRN.MEAT STOCK CLERK Work Phone: [facility] 08-19-2022 08:52-0500 Respiratory rate 18 /min Lori Patel APRN.MEAT STOCK CLERK Work Phone: [facility] 08-19-2022 08:52-0500 SaO2% (BldA) [Mass fraction] 99 % Lori Patel APRN.MEAT STOCK CLERK Work Phone: [facility] 08-19-2022 08:52-0500 Systolic blood pressure 144 mm[Hg] Lori Patel APRN.MEAT STOCK CLERK Work Phone: [facility] 08-17-2022 05:46-0500 Diastolic blood pressure 72 mm[Hg] Dr. Rochelle Hackett Work Phone: [facility] 08-17-2022 05:46-0500 Heart rate 82 /min Dr. Rochelle Hackett Work Phone: [facility] 08-17-2022 05:46-0500 Respiratory rate 16 /min Dr. Rochelle Hackett Work Phone: [facility] 08-17-2022 05:46-0500 SaO2% (BldA) [Mass fraction] 98 % Dr. Rochelle Hackett Work Phone: [facility] 08-17-2022 05:46-0500 Systolic blood pressure 139 mm[Hg] Dr. Rochelle Hackett Work Phone: [facility] 08-17-2022 00:16-0500 Body height 170.[address] Rochelle Hackett Work Phone: [facility] Work Phone: 08-17-2022 00:16-0500 Body mass index (BMI) [Ratio] 18.6 kg/m2 Dr. Rochelle Hackett Work Phone: [facility] 08-17-2022 00:16-0500 Body temperature 97.7 [degF] Dr. Rochelle Hackett Work Phone: [facility] 08-17-2022 00:16-0500 Body weight [address] Rochelle Hackett Work Phone: [facility] 07-11-2022 11:25-0400 Body temperature 97.5 [degF] Justine Athy PA-C Work Phone: [facility] 07-11-2022 11:25-0400 Body weight 55.07 kg Justine Athy PA-C Work Phone: [facility] 07-11-2022 11:25-0400 Diastolic blood pressure 82 mm[Hg] Justine Athy PA-C Work Phone: [facility] 07-11-2022 11:25-0400 Heart rate 68 /min Justine Athy PA-C Work Phone: [facility] 07-11-2022 11:25-0400 Respiratory rate 18 /min Justine Athy PA-C Work Phone: [facility] 07-11-2022 11:25-0400 SaO2% (BldA) [Mass fraction] 100 % Justine Athy PA-C Work Phone: [facility] 07-11-2022 11:25-0400 Systolic blood pressure 132 mm[Hg] Justine Athy PA-C Work Phone: [facility] 07-07-2022 10:05-0400 Body temperature 97.81 [degF] Sofía Bogner PA-C Work Phone: [facility] 07-07-2022 10:05-0400 Body weight 53.98 kg Sofía Bogner PA-C Work Phone: [facility] 07-07-2022 10:05-0400 Diastolic blood pressure 68 mm[Hg] Sofía Bogner PA-C Work Phone: [facility] 07-07-2022 10:05-0400 Heart rate 66 /min Sofía Bogner PA-C Work Phone: [facility] 07-07-2022 10:05-0400 Respiratory rate 16 /min Sofía Bogner PA-C Work Phone: [facility] 07-07-2022 10:05-0400 SaO2% (BldA) [Mass fraction] 100 % Sofía Bogner PA-C Work Phone: [facility] 07-07-2022 10:05-0400 Systolic blood pressure 122 mm[Hg] Sofía Baig PA-C Work Phone: [facility] 07-02-2022 10:32-0400 Body mass index (BMI) [Ratio] 18.6 kg/m2 Dr. Rochelle Hackett Work Phone: [facility] Work Phone: 07-02-2022 10:32-0400 Body weight 53.[address] Rochelle Hackett Work Phone: [facility] Work Phone: 07-02-2022 10:32-0400 Diastolic blood pressure 83 mm[Hg] Dr. Rochelle Hackett Work Phone: [facility] Work Phone: 07-02-2022 10:32-0400 Heart rate 58 /min Dr. Rochelle Hackett Work Phone: [facility] Work Phone: 07-02-2022 10:32-0400 Respiratory rate 18 /min Dr. Rochelle Hackett Work Phone: [facility] Work Phone: 07-02-2022 10:32-0400 SaO2% (BldA) [Mass fraction] 100 % Dr. Rochelle Hackett Work Phone: [facility] Work Phone: 07-02-2022 10:32-0400 Systolic blood pressure 147 mm[Hg] Dr. Rochelle Hackett Work Phone: [facility] Work Phone: 06-06-2022 17:58-0400 Body height 170.[address] Rochelle Hackett Work Phone: [facility] Work Phone: 06-06-2022 17:58-0400 Body mass index (BMI) [Ratio] 18.8 kg/m2 Dr. Rochelle Hackett Work Phone: [facility] Work Phone: 06-06-2022 17:58-0400 Body temperature 97.3 [degF] Dr. Rochelle Hackett Work Phone: [facility] Work Phone: 06-06-2022 17:58-0400 Body weight 54.[address] Rochelle Hackett Work Phone: [facility] Work Phone: 06-06-2022 17:58-0400 Diastolic blood pressure 78 mm[Hg] Dr. Rochelle Hackett Work Phone: [facility] Work Phone: 06-06-2022 17:58-0400 Heart rate 66 /min Dr. Rochelle Hackett Work Phone: [facility] Work Phone: 06-06-2022 17:58-0400 Respiratory rate 15 /min Dr. Rochelle Hackett Work Phone: [facility] Work Phone: 06-06-2022 17:58-0400 SaO2% (BldA) [Mass fraction] 99 % Dr. Rochelle Hackett Work Phone: [facility] Work Phone: 06-06-2022 17:58-0400 Systolic blood pressure 128 mm[Hg] Dr. Rochelle Hackett Work Phone: [facility] Work Phone: 05-29-2022 14:10-0400 Diastolic blood pressure 80 mm[Hg] Dr. Rochelle Hackett Work Phone: [facility] Work Phone: 05-29-2022 14:10-0400 Systolic blood pressure 154 mm[Hg] Dr. Rochelle Hackett Work Phone: [facility] Work Phone: 05-29-2022 11:19-0400 Body height 170.[address] Rochelle Hackett Work Phone: [facility] Work Phone: 05-29-2022 11:19-0400 Body mass index (BMI) [Ratio] 18.8 kg/m2 Dr. Rochelle Hackett Work Phone: [facility] Work Phone: 05-29-2022 11:19-0400 Body temperature 98.2 [degF] Dr. Rochelle Hackett Work Phone: [facility] Work Phone: 05-29-2022 11:19-0400 Body weight 54.[address] Rochelle Hackett Work Phone: [facility] Work Phone: 05-29-2022 11:19-0400 Heart rate 63 /min Dr. Rochelle Hackett Work Phone: [facility] Work Phone: 05-29-2022 11:19-0400 Respiratory rate 15 /min Dr. Rochelle Hackett Work Phone: [facility] Work Phone: 05-29-2022 11:19-0400 SaO2% (BldA) [Mass fraction] 99 % Dr. Rochelle Hackett Work Phone: [facility] Work Phone: 05-16-2022 08:47-0400 Body height 170.2 cm Rochelle Hackett MD Work Phone: [facility] 05-16-2022 08:47-0400 Body temperature 96.8 [degF] Rochelle Hackett MD Work Phone: [facility] 05-16-2022 08:47-0400 Body weight 53.52 kg Rochelle Hackett MD Work Phone: [facility] 05-16-2022 08:47-0400 Diastolic blood pressure 70 mm[Hg] Rochelle Hackett MD Work Phone: [facility] 05-16-2022 08:47-0400 Heart rate 62 /min Rochelle Hackett MD Work Phone: [facility] 05-16-2022 08:47-0400 Respiratory rate 12 /min Rochelle Hackett MD Work Phone: [facility] 05-16-2022 08:47-0400 SaO2% (BldA) [Mass fraction] 99 % Rochelle Hackett MD Work Phone: [facility] 05-16-2022 08:47-0400 Systolic blood pressure 110 mm[Hg] Rochelle Hackett MD Work Phone: [facility] 05-14-2022 11:37-0400 Body height 170.[address] Rochelle Hackett Work Phone: [facility] Work Phone: 04-21-2022 15:33-0400 Body height 170.2 cm Jessy FRANKLINRoomlr Work Phone: [facility] 04-21-2022 15:33-0400 Body weight 53.07 kg Jessy Pina [employer] Work Phone: [facility] 04-09-2022 11:26-0400 Body mass index (BMI) [Ratio] 18.3 kg/m2 Dr. Rochelle Hackett Work Phone: [facility] Work Phone: 04-09-2022 11:26-0400 Body temperature 97.4 [degF] Dr. Rochelle Hackett Work Phone: [facility] Work Phone: 04-09-2022 11:26-0400 Body weight 53.[address] Rochelle Hackett Work Phone: [facility] Work Phone: 04-09-2022 11:26-0400 Diastolic blood pressure 82 mm[Hg] Dr. Rochelle Hackett Work Phone: [facility] Work Phone: 04-09-2022 11:26-0400 Heart rate 57 /min Dr. Rochelle Hackett Work Phone: [facility] Work Phone: 04-09-2022 11:26-0400 Respiratory rate 16 /min Dr. Rochelle Hackett Work Phone: [facility] Work Phone: 04-09-2022 11:26-0400 SaO2% (BldA) [Mass fraction] 100 % Dr. Rochelle Hackett Work Phone: [facility] Work Phone: 04-09-2022 11:26-0400 Systolic blood pressure 182 mm[Hg] Dr. Rochelle Hackett Work Phone: [facility] Work Phone: 03-18-2022 09:17-0400 Body height 170.[address] Rochelle Hackett Work Phone: [facility] Work Phone: 03-18-2022 09:17-0400 Body mass index (BMI) [Ratio] 18.8 kg/m2 Dr. Rochelle Hackett Work Phone: [facility] Work Phone: 03-18-2022 09:17-0400 Body weight 54.[address] Rochelle Hackett Work Phone: [facility] Work Phone: 03-18-2022 09:17-0400 Diastolic blood pressure 78 mm[Hg] Dr. Rochelle Hackett Work Phone: [facility] Work Phone: 03-18-2022 09:17-0400 Heart rate 57 /min Dr. Rochelle Hackett Work Phone: [facility] Work Phone: 03-18-2022 09:17-0400 Respiratory rate 18 /min Dr. Rochelle Hackett Work Phone: [facility] Work Phone: 03-18-2022 09:17-0400 SaO2% (BldA) [Mass fraction] 95 % Dr. Rochelle Hcakett Work Phone: [facility] Work Phone: 03-18-2022 09:17-0400 Systolic blood pressure 129 mm[Hg] Dr. Rochelle Hackett Work Phone: [facility] Work Phone: 02-07-2022 10:14-0400 Body temperature 97.59 [degF] Alice Gregory 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 Work Phone: [facility] 02-07-2022 10:14-0400 Body weight 54.7 kg Alice Gregory 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 Work Phone: [facility] 02-07-2022 10:14-0400 Diastolic blood pressure 70 mm[Hg] Alice Gregory 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 Work Phone: [facility] 02-07-2022 10:14-0400 Heart rate 60 /min Alice Gregory 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 Work Phone: [facility] 02-07-2022 10:14-0400 Respiratory rate 16 /min Alice Gregory 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 Work Phone: [facility] 02-07-2022 10:14-0400 SaO2% (BldA) [Mass fraction] 100 % Alice Gregory 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 Work Phone: [facility] 02-07-2022 10:14-0400 Systolic blood pressure 126 mm[Hg] Alice Gregory 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 Work Phone: [facility] 11-25-2021 19:28-0400 Diastolic blood pressure 92 mm[Hg] Dr. Rochelle Hackett Work Phone: [facility] Work Phone: 11-25-2021 19:28-0400 Systolic blood pressure 142 mm[Hg] Dr. Rochelle Hackett Work Phone: [facility] Work Phone: 11-25-2021 19:28-0400 Diastolic blood pressure 92 mm[Hg] Dr. Rochelle Hackett Work Phone: [facility] Work Phone: 11-25-2021 19:28-0400 Systolic blood pressure 142 mm[Hg] Dr. Rochelle Hackett Work Phone: [facility] Work Phone: 11-25-2021 13:05-0400 Body temperature 98.2 [degF] Dr. Rochelle Hackett Work Phone: [facility] Work Phone: 11-25-2021 13:05-0400 Heart rate 50 /min Dr. Rochelle Hackett Work Phone: [facility] Work Phone: 11-25-2021 13:05-0400 Respiratory rate 18 /min Dr. Rochelle Hackett Work Phone: [facility] Work Phone: 11-25-2021 13:05-0400 SaO2% (BldA) [Mass fraction] 99 % Dr. Rochelle Hackett Work Phone: [facility] Work Phone: 10-25-2021 00:53-0500 Body temperature 98 [degF] Dr. Rochelle Hackett Work Phone: [facility] Work Phone: 10-25-2021 00:53-0500 Diastolic blood pressure 74 mm[Hg] Dr. Rochelle Hackett Work Phone: [facility] Work Phone: 10-25-2021 00:53-0500 Heart rate 62 /min Dr. Rochelle Hackett Work Phone: [facility] Work Phone: 10-25-2021 00:53-0500 Respiratory rate 16 /min Dr. Rochelle Hackett Work Phone: [facility] Work Phone: 10-25-2021 00:53-0500 SaO2% (BldA) [Mass fraction] 98 % Dr. Rochelle Hackett Work Phone: [facility] Work Phone: 10-25-2021 00:53-0500 Systolic blood pressure 142 mm[Hg] Dr. Rochelle Hackett Work Phone: [facility] Work Phone: 10-24-2021 20:50-0500 Body height 170.[address] Rochelle Hackett Work Phone: [facility] Work Phone: 10-24-2021 20:50-0500 Body mass index (BMI) [Ratio] 19.5 kg/m2 Dr. Rochelle Hackett Work Phone: [facility] Work Phone: 10-24-2021 20:50-0500 Body weight 56.[address] Rochelle Hackett Work Phone: [facility] Work Phone: 09-26-2021 11:51-0500 Body mass index (BMI) [Ratio] 18.6 kg/m2 Dr. Rochelle Hackett Work Phone: [facility] 09-26-2021 11:51-0500 Body weight 53.[address] Rochelle Hackett Work Phone: [facility] 09-26-2021 10:51-0500 Body mass index (BMI) [Ratio] 18.6 kg/m2 Dr. Rochlele Hackett Work Phone: [facility] Work Phone: 09-26-2021 10:51-0500 Body weight 53.[address] Rochelle Hackett Work Phone: [facility] Work Phone: 09-26-2021 10:01-0500 Body mass index (BMI) [Ratio] 18.5 kg/m2 Dr. Rochelle Hackett Work Phone: [facility] Work Phone: 09-26-2021 10:01-0500 Body temperature 97.2 [degF] Dr. Rochelle Hackett Work Phone: [facility] Work Phone: 09-26-2021 10:01-0500 Body weight 53.[address] Rochelle Hackett Work Phone: [facility] Work Phone: 09-26-2021 10:01-0500 Diastolic blood pressure 78 mm[Hg] Dr. Rochelle Hackett Work Phone: [facility] Work Phone: 09-26-2021 10:01-0500 Heart rate 67 /min Dr. Rochelle Hackett Work Phone: [facility] Work Phone: 09-26-2021 10:01-0500 Respiratory rate 16 /min Dr. Rochelle Hackett Work Phone: [facility] Work Phone: 09-26-2021 10:01-0500 SaO2% (BldA) [Mass fraction] 97 % Dr. Rochelle Hackett Work Phone: [facility] Work Phone: 09-26-2021 10:01-0500 Systolic blood pressure 134 mm[Hg] Dr. Rochelle Hackett Work Phone: [facility] Work Phone: 12-10-2020 13:44-0400 Body temperature 97.7 [degF] Dr. Rochelle Hackett Work Phone: [facility] 12-10-2020 13:44-0400 Diastolic blood pressure 78 mm[Hg] Dr. Rochelle Hackett Work Phone: [facility] 12-10-2020 13:44-0400 Heart rate 60 /min Dr. Rochelle Hackett Work Phone: [facility] 12-10-2020 13:44-0400 Respiratory rate 16 /min Dr. Rochelle Hackett Work Phone: [facility] 12-10-2020 13:44-0400 SaO2% (BldA) [Mass fraction] 100 % Dr. Rochelle Hackett Work Phone: [facility] 12-10-2020 13:44-0400 Systolic blood pressure 153 mm[Hg] Dr. Rochelle Hackett Work Phone: [facility] 08-03-2017 12:08-0500 BMI (Body Mass Index) 18.27 kg/m2 Handy Russell NP [facility] Work Phone: 08-03-2017 12:08-0500 BP Diastolic 80 mm[Hg] Handy Russell DIALYSIS CHIEF EQUIPMENT TECHNICIAN [facility] Work Phone: 08-03-2017 12:08-0500 BP Systolic 128 mm[Hg] Handy Russell DIALYSIS CHIEF EQUIPMENT TECHNICIAN [facility] Work Phone: 08-03-2017 12:08-0500 Height 171.45 cm Handy Russell DIALYSIS CHIEF EQUIPMENT TECHNICIAN [facility] Work Phone: 08-03-2017 12:08-0500 Pulse (Heart Rate) 66 /min Handy Russell DIALYSIS CHIEF EQUIPMENT TECHNICIAN [facility] Work Phone: 08-03-2017 12:08-0500 Weight 53.71 kg Handy Russell DIALYSIS CHIEF EQUIPMENT TECHNICIAN [facility] Work Phone: 06-03-2017 14:42-0400 Body Temperature 97.7 [degF] Handy Russell NP [facility] Work Phone: 06-03-2017 14:42-0400 Height 171.45 cm Handy Russell NP [facility] Work Phone: 06-03-2017 14:42-0400 Respiratory Rate 20 /min Handy Russell DIALYSIS CHIEF EQUIPMENT TECHNICIAN [facility] Work Phone: 06-03-2017 14:42-0400 Weight 52.07 kg Handy Russell NP [facility] Work Phone: 11-05-2016 14:41-0500 BSA (Body Surface Area) 1.63 m2 Handy Russell NP [facility] Work Phone: 10-16-2015 14:27-0500 BP Diastolic 44 mm[Hg] Handy Russell DIALYSIS CHIEF EQUIPMENT TECHNICIAN [facility] Work Phone: 10-16-2015 14:27-0500 BP Systolic 88 mm[Hg] Handy Russell NP [facility] Work Phone: 10-16-2015 14:27-0500 Pulse (Heart Rate) 64 /min Handy Russell NP [facility] Work Phone: Encounters Encounter Date Encounter Type Care Provider Facility Start: 02-22-2025 End: 02-22-2025 Refill Rochelle Hackett MD Work Phone: [facility] [place] Comment on above: Refill Request Start: 02-21-2025 End: 02-21-2025 ambulatory [facility] Facility:[facility] Start: 02-14-2025 End: 02-14-2025 [facility] Facility:[facility] Start: 02-10-2025 End: 02-10-2025 Office outpatient visit 25 minutes Rochelle Hackett MD Work Phone: [facility] [place] Comment on above: Osteoporosis, unspec ified osteoporosis type, unspecified pathological fracture presence (Primary Dx); Insomnia, unspecified type; Dizziness; SIADH (syndrome of inappropriate ADH production) ([facility]); Protein-calorie malnutrition, unspecified severity ([facility]); Anxiety and depression; Gastroesophageal reflux disease, unspecified whether esophagitis present; Vitamin D deficiency; Frail elderly; Mixed hyperlipidemia; Essential (primary) hypertension; Adrenal insufficiency ([facility]) Start: 02-10-2025 End: 02-10-2025 ambulatory [facility] Facility:[facility] Start: 02-07-2025 End: 02-07-2025 [facility] Facility:[facility] Start: 01-12-2025 ambulatory [facility] Facility: [facility] Start: 12-28-2024 End: 12-28-2024 ambulatory [facility] Facility:[facility] Start: 12-27-2024 End: 12-27-2024 ambulatory Anayeli Pettit RN Work Phone: [employer] Comment on above: Bi-Weekly Outreach ( Recurring) for Chronic Disease Management Start: 12-26-2024 End: 12-26-2024 ambulatory [facility] Facility:[facility] Start: 12-20-[address] Rochelle hughes MD -Physical Therapy Work Phone: Start: 12-20-2024 End: 12-20-[address] Rochelle Hackett MD Work Phone: [facility] Work Phone: Start: 12-20-2024 End: 12-20-[address] Eagle Enciso MD -Laboratory Work Phone: Start: 12-20-2024 End: 12-20-2024 ambulatory [facility] Facility:[facility] Start: 12-13-2024 End: 12-13-2024 ambulatory Anayeli Pettit RN Work Phone: [employer] Comment on above: Bi-Weekly Outreach ( Recurring) for Chronic Disease Management Start: 12-09-2024 End: 12-09-2024 [facility] [place] Start: 12-09-2024 End: 12-09-2024 Patient encounter procedure Nancy Rangel MA [facility] [place] Comment on above: Population Health Na vigation Outreach (Aco high risk attempt # 1) Start: 11-29-2024 End: 11-29-2024 ambulatory Anayeli Pettit RN Work Phone: [employer] Comment on above: Bi-Weekly Outreach ( Recurring) for Chronic Disease Management Start: 11-16-2024 End: 11-16-2024 ambulatory Anayeli Pettit RN Work Phone: [employer] Comment on above: Bi-Weekly Outreach ( Recurring) for Chronic Disease Management Start: 11-10-2024 End: 11-10-2024 ambulatory No Pcp (Hist) [facility] [place] Start: 11-10-2024 End: 11-10-2024 Patient encounter procedure No Pcp (Hist) [facility] [place] Start: 11-08-2024 End: 11-08-2024 Telephone encounter Rochelle Hackett MD Work Phone: [facility] [place] Comment on above: Orders ([facility]) Start: 11-08-2024 End: 11-08-2024 ambulatory ROCHELLE HACKETT Facility:[facility] Start: 11-08-2024 End: 11-08-2024 Office outpatient visit 25 minutes Rochelle Hackett MD Work Phone: [facility] [place] Comment on above: Ambulatory dysfuncti on (Primary Dx); Dizziness; Frequent falls; Osteoporosis, unspecified osteoporosis type, unspecified pathological fracture presence; Insomnia, unspecified type Start: 11-07-2024 End: 11-07-2024 Follow-up encounter Al Nichole APRN.CNP Work Phone: [facility] [place] Comment on above: Compression fracture of T12 vertebra with routine healing, subsequent encounter (Primary Dx); Compression fracture of body of thoracic vertebra (HCC) Start: 11-07-2024 End: 11-07-2024 Telephone encounter Rochelle Hackett MD Work Phone: [facility] [place] Comment on above: Pain Management Refe rral Start: 11-03-2024 End: 01-03-2025 Follow-up encounter Al Nichole APRN.CNP Work Phone: [facility] [place] Start: 11-03-2024 End: 11-04-2024 Telephone encounter Rochelle Hackett MD Work Phone: [facility] [place] Comment on above: Patient Question Start: 11-02-2024 End: 11-02-2024 Subsequent hospital visit by physician Tonie [facility] [place] Work Phone: Radiology Comment on above: Acute midline back p ain, unspecified back location [M54.9] Start: 11-02-2024 End: 11-02-2024 ambulatory AL NICHOLE Facility:[facility] Start: 11-02-2024 End: 11-02-2024 Patient encounter procedure Al Dayanara GONZALEZMEAT STOCK CLERK Work Phone: [facility] [place] Comment on above: Fall, subsequent enc ounter (Primary Dx); Acute midline back pain, unspecified back location; Dysuria; Hyponatremia; Hypokalemia Start: 11-01-2024 End: 11-01-2024 ambulatory Anayeli Pettit RN Work Phone: [employer] Comment on above: Bi-Weekly Outreach ( Recurring) for Chronic Disease Management Start: 10-30-2024 End: 10-30-2024 Emergency department patient visit Dr. Tejinder Mora MD -Emergency Department Work Phone: Start: 10-17-2024 End: 10-17-2024 ambulatory Anayeli Pettit RN Work Phone: [employer] Comment on above: Initial enrollment o raghavendra for Chronic Disease Management Start: 10-14-2024 End: 10-14-[address] Maya Sal MD -Sleep Lab Work Phone: Start: 10-14-2024 End: 10-14-2024 ambulatory [facility] Facility:[facility] Start: 10-11-2024 End: 10-11-2024 [facility] [place] Start: 10-11-2024 End: 10-11-2024 Patient encounter procedure Dipika Mohr [facility] Comment on above: Population Health Na vigation Outreach ([place]/[employer]/[facility] ) Start: 09-29-2024 ambulatory [facility] Facility :[facility] Start: 09-29-2024 End: 09-29-2024 Telemedicine consultation with patient Maya Sal MD Work Phone: Sleep [facility] Comment on above: Hypersomnia (Primary Dx) Start: 09-20-2024 ambulatory [facility] Facility:[facility] Start: 09-20-[address] Shirley Nguyễn MD -[place] [facility] Start: 09-09-2024 End: 09-09-[address] Brian Cooley MD -[facility] Work Phone: Start: 09-09-2024 End: 09-09-2024 ambulatory [facility] Facility:[facility] Start: 07-21-2024 End: 07-28-2024 Telephone encounter Rochelle Hackett MD Work Phone: [facility] [place] Start: 07-13-2024 End: 07-13-2024 ambulatory [facility] Facility:[facility] Start: 07-04-2024 End: 07-04-2024 ambulatory [facility] Facility:[facility] Start: 06-28-2024 End: 06-28-2024 ambulatory [facility] Facility:[facility] Start: 06-28-2024 End: 06-28-2024 Patient encounter procedure Sol Harvey Work Phone: Podiatry Comment on above: Open wound of toe, i nitial encounter (Primary Dx) Start: 06-25-2024 End: 06-25-2024 Emergency department patient visit [facility] Facility:[facility] Start: 06-10-2024 End: 07-14-2024 [facility] Work Phone: Neurology Comment on above: Psg Check In (Adult) Start: 06-07-2024 End: 06-07-2024 ambulatory [facility] Facility:[facility] Start: 06-02-2024 End: 06-02-2024 ambulatory [facility] Facility:[facility] Start: 06-02-2024 End: 06-02-2024 Patient encounter procedure Sol Harvey Work Phone: Podiatry Comment on above: Ingrowing toenail (P rimary Dx) Start: 05-31-2024 End: 05-31-2024 ambulatory [facility] Facility:[facility] Start: 05-20-2024 End: 05-20-2024 Telephone encounter Rochelle Hackett MD Work Phone: Internal Medicine [place] Comment on above: Results Start: 05-18-2024 End: 05-18-2024 Patient encounter procedure Rochelle Hackett MD Work Phone: Internal Medicine [place] Comment on above: Frail elderly (Prima ry Dx); Exhaustion; Sleep apnea, unspecified type; Vitamin D deficiency; Iron deficiency; Other fatigue Start: 05-18-2024 End: 05-18-2024 [facility] Facility:[facility] Start: 05-17-2024 End: 05-17-2024 [facility] Facility:[facility] Start: 05-03-2024 End: 05-06-2024 ambulatory Rochelle Hackett MD Work Phone: Internal Medicine [place] [id number] Start: 04-22-2024 End: 04-22-2024 ambulatory SOL HARVEY Facility:[facility] Start: 04-22-2024 End: 04-22-2024 Patient encounter procedure Sol Farmermirna Work Phone: Podiatry Comment on above: Onychomycosis (Prima ry Dx); Ingrowing toenail Start: 04-12-2024 Telephone encounter Al Nichole APRN.CNP Work Phone: Internal Medicine [place] Comment on above: Orders Start: 04-12-2024 End: 04-12-2024 [facility] Facility:[facility] Start: 04-12-2024 End: 04-12-2024 Office outpatient visit [...] cognitive disorder Start: 03-08-2024 End: 03-08-2024 ambulatory [facility] Facility:[facility] Start: 03-08-2024 End: 03-08-2024 [facility] Facility:[facility] Start: 03-03-2024 End: 03-03-2024 [facility] Facility:[facility] Start: 01-23-2024 End: 01-23-2024 Emergency department patient visit Dr. Rochelle Hackett Work Phone: [facility]-Emergency Department Work Phone: Start: 01-18-2024 End: 01-18-[address] Rochelle Hackett Work Phone: [facility] Work Phone: Start: 12-30-2023 End: 12-30-[address] Rochelle Hackett Work Phone: [facility] Work Phone: Start: 12-30-2023 End: 12-30-[address] Rochelle Hackett Work Phone: [facility]-Physical Therapy Work Phone: Start: 12-29-2023 End: 12-29-[address] Rochelle Hackett Work Phone: [facility] Work Phone: Start: 12-25-[address] Yuval Hackett Work Phone: [facility]-Physical Therapy Work Phone: Start: 12-18-2023 End: 12-18-[address] Rochelle Hackett Work Phone: [facility] Work Phone: Start: 12-18-2023 End: 12-18-[address] Rochelle Hackett Work Phone: [facility]-Laboratory Work Phone: Start: 12-15-2023 End: 12-15-2023 Office outpatient visit 25 minutes Sara Rangel APRN.SPACE ENGINEER Work Phone: Internal Medicine [place] Comment on above: Urinary incontinence , unspecified type (Primary Dx); Urinary tract infection without hematuria, site unspecified Start: 12-08-2023 End: 12-08-2023 Emergency department patient visit Dr. Rochelle Hackett Work Phone: [facility]-Emergency Department Work Phone: Start: 12-07-[address] [facility] Start: 11-26-2023 End: 11-26-[address] Rochelle Hackett Work Phone: [facility] Work Phone: Start: 11-22-2023 Non-patient / Non-visit Dr. Bulmaro Hackett Work Phone: [facility] In[facility] Physicians Work Phone: Start: 11-21-2023 End: 11-22-2023 Evaluation and management of inpatient Dr. Rochelle Hackett [facility] Work Phone: Start: 11-21-2023 End: 11-22-[address] Rochelle Hackett Work Phone: [facility] Work Phone: Start: 11-17-2023 End: 11-17-2023 Subsequent hospital visit by physician [facility] ([facility]-Stat) Work Phone: Cat Scan Comment on above: TIA (transient ische aura attack) [G45.9] Start: 11-16-[address] Yuval Hack[facility] Start: 11-02-2023 End: 11-02-2023 Patient encounter procedure Irish Warren APRN.MEAT STOCK CLERK Work Phone: Internal Medicine [place] Comment on above: TIA (transient ische aura attack) (Primary Dx); Aphasia; Ocular migraine; Yeast dermatitis Start: 11-02-2023 Telephone encounter Rochelle staton MD Work Phone: Internal Medicine [place] Comment on above: infected belly butto n; Problems with speaking and thought process Start: 10-30-2023 End: 10-30-2023 Patient encounter procedure Carlos Sheth MD Work Phone: General Surgery Comment on above: Mastodynia (Primary Dx); Costochondritis Start: 10-26-2023 End: 10-26-[address] Rochelle Hackett Work Phone: [facility] Work Phone: Start: 10-23-2023 Telephone encounter Rochelle staton MD Work Phone: Internal Medicine [place] Comment on above: Release Of Medical R ecords Start: 10-20-2023 Telephone encounter Rochelle staton MD Work Phone: Internal Medicine [place] Comment on above: Patient Request Start: 10-08-2023 End: 10-08-[address] Rochelle Hackett Work Phone: [facility] Work Phone: Start: 10-07-[address] Yuval Hackett Work Phone: [facility]Physical Therapy Work Phone: Start: 10-05-2023 End: 10-05-[address] Rochelle Hackett Work Phone: [facility] Work Phone: Start: 10-05-2023 End: 10-05-[address] Rochelle Hackett Work Phone: [facility]-Outpatient Breast Imaging Work Phone: Start: 10-01-2023 End: 10-01-[address] Rochelle Hackett Work Phone: [facility] Work Phone: Start: 10-01-[address] Yuval Hackett Work Phone: [facility] Start: 09-23-2023 End: 09-23-[address] Rochelle Hackett Work Phone: [facility] Work Phone: Start: 09-23-2023 End: 09-23-[address] Rochelle Hackett Work Phone: [facility]Laboratory Work Phone: Start: 09-22-2023 End: 09-22-[address] Rochelle Hackett Work Phone: [facility] Work Phone: Start: 08-29-2023 End: 08-29-2023 Emergency department patient visit Dr. Rochelle Hackett Work Phone: [facility]Emergency Department Work Phone: Start: 08-17-2023 End: 08-17-2023 Patient encounter procedure Maggi Mcdaniel PA-C Work Phone: Orthopaedics Comment on above: Chronic pain of righ t knee (Primary Dx); Primary osteoarthritis of right knee Start: 08-12-2023 Non-patient / Non-visit Dr. Bulmaro Hackett Work Phone: [facility] Work Phone: Start: 08-12-2023 Non-patient / Non-visit Dr. Bulmaro Hackett Work Phone: [facility] Start: 08-11-2023 Non-patient / Non-visit Dr. Bulmaro Hackett Work Phone: [facility] Start: 08-11-2023 End: 08-11-[address] Rochelle Hackett Work Phone: [facility] Work Phone: Start: 08-11-2023 End: 08-11-[address] Rochelle Hackett Work Phone: [facility]-Cardiovascula r Services Work Phone: Start: 08-10-2023 [...] ambulatory Rochelle Ramírez Work Phone: Internal Medicine [place] Comment on above: Epistaxis Start: 07-23-2023 End: 07-23-2023 Emergency department patient visit Dr. Rochelle Hackett Work Phone: [facility]Emergency Department Work Phone: Start: 07-15-2023 End: 07-15-[address] Rochelle Hackett Work Phone: [facility] Work Phone: Start: 07-15-2023 End: 07-15-[address] 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 Rochelle Hackett Work Phone: [facility] Work Phone: Start: 05-21-2023 End: 05-21-[address] Rochelle Hackett Work Phone: [facility]-Outpatient Breast Imaging Work Phone: Start: 05-20-2023 Non-patient / Non-visit Dr. Bulmaro Hackett Work Phone: [facility] Start: 05-20-2023 End: 05-20-[address] Rochelle Hackett Work Phone: [facility]-Pulmonary Services/Neurology Work Phone: Start: 05-08-2023 Telephone encounter Ilya Begum Adult Psychology Comment on above: Consult (Patient Out reach [facility]) Orders Start: 05-08-2023 End: 05-08-2023 Patient encounter procedure Al Nichole APRN.MEAT STOCK CLERK Work Phone: Internal Medicine [place] Comment on above: Anxiety and depressi on (Primary Dx); Nausea; Dizziness; Diarrhea, unspecified type; Paroxysmal atrial fibrillation (HCC); Hyponatremia; Chronic fatigue disorder; Gastroesophageal reflux disease, unspecified whether esophagitis present Start: 05-05-2023 End: 05-05-[address] Rochelle Hackett Work Phone: [facility]-Physical Therapy Work Phone: Start: 04-25-2023 End: 04-25-2023 Emergency department patient visit Dr. Rochelle Hackett Work Phone: [facility]Emergency Department Work Phone: Start: 04-23-2023 End: 04-23-[address] Rochelle Hackett Work Phone: [facility] Work Phone: Start: 04-21-2023 ambulatory Rochelle Ramírez Work Phone: Internal Medicine [facility] [employer] Start: 04-20-2023 Telephone encounter Sandra rosa APRN.MEAT STOCK CLERK Work Phone: Family [facility] Comment on above: Results Start: 04-17-2023 Telephone encounter Sandra rosa APRN.MEAT STOCK CLERK Work Phone: Family [facility] Comment on above: Results Start: 04-16-2023 End: 04-16-2023 Subsequent hospital visit by physician [facility] Work Phone: Radiology Comment on above: Diarrhea, unspecifie d type [R19.7] Start: 04-16-2023 End: 04-16-2023 Patient encounter procedure Sandra Leary APRN.MEAT STOCK CLERK Work Phone: Family Medicine [place] Comment on above: Diarrhea, unspecifie d type (Primary Dx) APPOINTMENT CANCELLE D (Primary Dx) Start: 04-15-2023 Telephone encounter Al Nichole APRN.MEAT STOCK CLERK Work Phone: Internal Medicine [place] Comment on above: mushy stools Start: 04-13-[address] Yuval Hackett Work Phone: [facility]Physical Therapy Work Phone: Start: 04-11-2023 End: 04-11-[address] Rochelle Hackett Work Phone: [facility] Work Phone: Start: 04-11-2023 End: 04-11-[address] Rochelle Hackett Work Phone: [facility]-Laboratory Work Phone: Start: 04-09-[address] Yuval Hackett Work Phone: [facility] Start: 04-09-2023 End: 04-09-[address] Rochelle Hackett Work Phone: [facility] Work Phone: Start: 04-08-2023 End: 04-08-2023 Emergency department patient visit Dr. Rochelle Hackett Work Phone: [facility]Emergency Department Work Phone: Start: 04-08-2023 ambulatory Rochelle Ramírez Work Phone: Internal Medicine [place] Comment on above: Dizziness Start: 04-08-2023 End: 04-08-2023 Patient encounter procedure Rishi Romero APRN.MEAT STOCK CLERK Work Phone: [facility] Comment on above: Black-out (not amnes ia) (Primary Dx) Start: 04-07-2023 End: 04-07-[address] Rochelle Hackett Work Phone: [facility] Work Phone: Start: 04-07-[address] [facility] Start: 01-19-2023 End: 01-19-[address] Rochelle Hackett Work Phone: [facility] Work Phone: Start: 01-14-2023 End: 01-14-2023 Patient encounter procedure Sol Harvey Work Phone: Podiatry Comment on above: Onychomycosis (Prima ry Dx); Diminished pulses in lower extremity; Protein-calorie malnutrition, unspecified severity (HCC) Start: 11-21-2022 End: 11-21-[address] Rochelle Hackett Work Phone: [facility] Work Phone: Start: 11-21-2022 End: 11-21-[address] [facility] Hack[facility] Start: 11-17-[address] 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 Rochelle Hackett Work Phone: [facility] Work Phone: Start: 11-14-2022 End: 11-14-[address] Rochelle Hackett Work Phone: [facility]Laboratory Start: 10-14-2022 End: 10-14-[address] Rochelle Hackett Work Phone: [facility] Start: 10-08-[address] Yuval Hackett Work Phone: [facility] Start: 10-08-2022 End: 10-08-[address] Rochelle Hackett Work Phone: [facility] Start: 09-05-2022 End: 09-05-2022 Patient encounter procedure Ron Wong MD Work Phone: [place] [facility] Comment on above: Acute COVID-19 (Prim merry Dx) Start: 09-05-2022 Refill Ron mercedes MD Work Phone: [place] [facility] Comment on above: Med Change Request Start: 09-05-2022 Telephone encounter Rochelle staton MD Work Phone: Internal Medicine [place] Comment on above: Patient Update Start: 08-28-2022 Telephone encounter Al Nichole APRN.MEAT STOCK CLERK Work Phone: Internal Medicine [place] Comment on above: Results Start: 08-20-2022 Telephone encounter Alice Jenkins APRN.MEAT STOCK CLERK Work Phone: [place] [facility] Comment on above: Results Start: 08-19-2022 End: 08-19-2022 Patient encounter procedure Lori Patel APRN.MEAT STOCK CLERK Work Phone: [place] [facility] Comment on above: Urinary frequency (P rimary Dx) Start: 08-17-2022 End: 08-17-2022 Emergency department patient visit Dr. Rochelle Hackett Work Phone: [facility]Emergency Department Start: 08-15-[address] Yuval Hackett Work Phone: [facility]-Physical Therapy Start: 08-11-2022 End: 08-11-2022 Patient [...] Telephone encounter Justine lindsay PA-C Work Phone: [place] [facility] Comment on above: Results Patient Update; Insu sedrick Authorization Start: 07-11-2022 End: 07-11-2022 Patient encounter procedure Justine Irizarry PA-C Work Phone: [place] [facility] Comment on above: Right leg swelling ( Primary Dx) Start: 07-07-2022 End: 07-07-2022 Office outpatient visit 15 minutes Sofía FRANKLIN-C Work Phone: [place] [facility] Comment on above: Visit for suture rem oval (Primary Dx); Laceration of right index finger without damage to nail, foreign body presence unspecified, initial encounter Start: 07-02-2022 End: 07-02-[address] Rochelle Hackett Work Phone: [facility] [facility] Start: 06-20-2022 End: 06-20-[address] Rochelle Hackett Work Phone: [facility] Work Phone: Start: 06-20-2022 End: 06-20-[address] [facility] Hack[facility] Start: 06-09-2022 End: 06-09-2022 Patient encounter procedure Maggi Mcdaniel PA-C Work Phone: Orthopaedics Comment on above: Primary osteoarthrit is of right knee (Primary Dx); Chronic pain of right knee Start: 06-07-2022 Non-patient / Non-visit Dr. Bulmaro Hackett Work Phone: [facility] Start: 06-06-2022 End: 06-06-[address] Rochelle Hackett Work Phone: [facility] Start: 05-30-[address] Yuval Hackett [facility] Start: 05-29-2022 End: 05-29-[address] Rochelle Hackett Work Phone: [facility] Work Phone: Start: 05-29-2022 End: 05-29-[address] Rochelle Hackett Work Phone: [facility] Start: 05-29-2022 End: 05-29-[address] Rochelle Hackett Work Phone: [facility] Start: 05-16-2022 End: 05-16-[address] Rochelle Hackett Work Phone: [facility] Work Phone: Start: 05-16-2022 End: 05-16-[address] Rochelle Hackett Work Phone: [facility] Start: 05-16-[address] Yuval Hackett [facility] Start: 05-16-2022 End: 05-16-2022 Patient encounter procedure Rochelle Hackett MD Work Phone: Internal Medicine [place] Comment on above: SIADH (syndrome of i nappropriate ADH production) (HCC) (Primary Dx); Paroxysmal atrial fibrillation (HCC); Dizziness and giddiness; Chronic fatigue disorder; Mild cognitive disorder Start: 05-14-2022 End: 05-14-[address] Rochelle Hackett Work Phone: [facility] Work Phone: Start: 05-14-2022 End: 05-14-[address] Rochelle Hackett Work Phone: [facility]-Outpatient Bone Densitometry Start: 04-29-2022 ambulatory Rochelle Ramírez Work Phone: Internal Medicine [facility] [employer] Start: 04-21-2022 End: 04-21-2022 Patient encounter procedure Jessy Pina PA-C Work Phone: Orthopaedics Comment on above: Primary osteoarthrit is of right knee (Primary Dx); Acquired genu valgum of right knee Start: 04-21-2022 End: 04-21-2022 Subsequent hospital visit by physician Radio General Blanka Bonner Work Phone: Radiology Comment on above: Pain [R52] Start: 04-17-2022 Orders Only Jessy waldron PA-C Work Phone: [facility] [place] Comment on above: Pain (Primary Dx) Start: 04-09-2022 Non-patient / Non-visit Dr. Bulmaro Hackett Work Phone: [facility] Start: 04-09-2022 End: 04-09-[address] Rochelle Hackett Work Phone: [facility]Cardiovascula r Services Start: 04-09-2022 End: 04-09-[address] Rochelle Hackett Work Phone: [facility] Start: 04-09-[address] Yuval Hackett Work Phone: [facility] Start: 03-18-2022 End: 03-18-[address] Rochelle Hackett Work Phone: [facility]Labor[facility] Start: 03-18-2022 End: 03-18-[address] Rochelle Hackett Work Phone: [facility] Start: 02-24-[address] Yuval Hack[facility] Start: 02-07-2022 End: 02-07-2022 Patient encounter procedure Alice Jenkins APRN.MEAT STOCK CLERK Work Phone: [facility] Comment on above: Exposure to COVID-19 virus (Primary Dx) Start: 02-03-2022 Telephone encounter Rochelle staton MD Work Phone: Internal Medicine [place] Comment on above: Covid19 Concern Start: 01-20-2022 Telephone encounter Al Nichole APRN.MEAT STOCK CLERK Work Phone: Internal Medicine [place] Comment on above: Results Start: 01-04-2022 Refill Al CollinsMEAT STOCK CLERK Work Phone: Internal Medicine [place] Comment on above: Refill Request Start: 12-24-2021 Telephone encounter Rochelle staton MD Work Phone: Internal Medicine [place] Comment on above: Results Start: 12-04-2021 End: 12-04-[address] Rochelle Hackett Work Phone: [facility] Start: 11-25-2021 End: 11-25-[address] Rochelle Hackett Work Phone: [facility] Start: 11-22-2021 Telephone encounter Rochelle staton MD Work Phone: Internal Medicine [place] Comment on above: Patient Question Start: 11-16-2021 End: 11-16-[address] Rochelle Hackett Work Phone: [facility] Start: 11-14-[address] Rochelle Hackett Work Phone: [facility] Start: 10-24-2021 End: 10-25-2021 Emergency department patient visit Dr. Rochelle Hackett Work Phone: [facility]Emergency Department Start: 10-03-2021 End: 10-03-[address] Rochelle Hackett Work Phone: [facility]-Outpatient Breast Imaging Start: 09-26-[address] Yuval Hackett Work Phone: [facility] Start: 09-26-2021 End: 09-26-[address] Rochelle Hackett Work Phone: [facility] Start: 03-26-2021 End: 03-26-2021 Subsequent hospital visit by physician [facility] Work Phone: Radiology Comment on above: [...] Start: 11-21-[address] Rochelle Hacektt Work Phone: Start: 11-17-2023 Ct head/brain w/o co ntrast material Irish Warren 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 Work Phone: Start: 10-05-[address] Rochelle Hackett Work Phone: Start: 08-17-2023 Arthrocentesis aspir &/inj major jt/bursa w/o us Maggi Vetovitz PA-C Work Phone: Start: 08-11-2023 Radionuclide imaging of perfusion of myocardium under exercise stress Dr. Rochelle Hackett Work Phone: Start: 08-10-2023 Arthrocentesis aspir &/inj major jt/bursa w/o us Jatinder iVck MD Work Phone: Start: 07-09-2023 INFLUENZA VACCINE, P RSV FREE, AGE 65+ YR, HIGH DOSE, QUADRIVALENT (FLUZONE HIGH-DOSE) Al Nichole 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 Work Phone: Start: 05-21-2023 Screening mammograph y of right breast Dr. Rochelle Hackett Work Phone: Start: 04-16-2023 Radiologic exam abdo men 1 view Sandra Leary 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 Work Phone: Start: 04-08-2023 Plain chest X-ray Dr. Eri Hackett Work Phone: Start: 09-05-2022 2019 CORONAVIRUS Ron Wong MD Work Phone: Start: 08-19-2022 Urnls dip stick/tabl et rgnt auto w/o microscopy Justine Irizarry PA-C Work Phone: Start: 08-17-2022 Diagnostic [...] Start: 08-03-2017 End: 08-04-2017 *BMP Handy Russell DIALYSIS CHIEF EQUIPMENT TECHNICIAN Work Phone: Start: 08-03-2017 End: 08-03-2017 Ecg routine ecg w/least 12 lds w/i&r Handy Russell DIALYSIS CHIEF EQUIPMENT TECHNICIAN Work Phone: Start: 08-03-2017 End: 08-04-2017 Magnesium [Mass/volume] in Serum or Plasma Handy Russell DIALYSIS CHIEF EQUIPMENT TECHNICIAN Work Phone: Start: 06-09-2017 End: 06-11-2017 Bx/exc lymph node open superficial Carlos Sheth MD Work Phone: Start: 11-05-2016 End: 11-05-2016 FOUNDER CEO & PRESIDENT Brian Cooley MD Start: 11-05-2016 End: 11-05-2016 [...] PA-C Work Phone: Start: 05-16-2015 End: 05-16-2015 FOUNDER CEO & PRESIDENT Tanesha Britt PA-C Work Phone: Start: 05-16-2015 [...] PA-C Work Phone: Start: 09-28-2013 End: 09-28-2013 FOUNDER CEO & PRESIDENT Brian Cooley MD Start: 09-28-2013 End: 07-25-2014 Ecg routine ecg w/least 12 lds w/i&r Brian Cooley MD Start: 09-28-2013 End: 07-25-2014 Echocardiography Brian Cooley MD Start: 09-28-2013 End: 09-28-2013 Follow Up Appt 2 months [facility] Start: 08-08-2013 End: 08-09-2013 *BMP Brian Cooley MD Start: 08-08-2013 End: 08-09-2013 *CBC with Differential Brian Cooley MD Start: 08-08-2013 End: 07-25-2014 FOUNDER CEO & PRESIDENT Brian Cooley MD Start: 08-08-2013 End: 08-08-2013 [...] PA-C Work Phone: Start: 11-17-2012 End: 11-17-2012 FOUNDER CEO & PRESIDENT Brian Cooley MD Start: 11-17-2012 End: 11-17-2012 [...] Detail Author Start: 06-30-2032 Tetanus vaccination TETANUS [facility] Start: 06-30-2032 Urine microalbumin profile [facility] Start: 09-24-2028 Urine microalbumin profile DTA P,TDAP,TD (2 - Td or Tdap) [facility] Start: 02-15-2028 Diabetes Screening Diabetes Screenin g [facility] Start: 11-02-2027 Diabetes Screening Diabetes Screenin g [facility] Start: 04-12-2027 Diabetes Screening Diabetes Screenin g [facility] Start: 09-01-2026 Diabetes Screening Diabetes Screenin g [facility] Start: 07-06-2026 Diabetes Screening Diabetes Screenin [facility] Start: 04-20-2026 DIABETES SCREEN DIABETES SCREEN [facility] Start: 08-25-2025 DIABETES SCREEN DIABETES SCREEN [facility] Start: 06-28-2025 DIABETES SCREEN DIABETES SCREEN [facility] Start: 05-11-2025 End: 05-11-2025 Patient encounter procedure 05/11/2025 1:00 PM EDT Office Visit Internal Medicine [place] [address] [place] [address] 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, Al, 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 [address] [place] [address] Medicare wellness visit [facility] Medicine [place] Comment on above: Medicare wellness vi sit Start: 02-10-2025 End: 05-12-2025 25-hydroxyvitamin D3 [Mass/volume] in Serum or Plasma VITAMIN D 25 HYDROXY Lab Routine Vitamin D deficiency Expected: 02/10/2025, Expires: 05/12/2025 [facility] Comment on above: Expected: 02/10/2025 , Expires: 05/12/2025 Start: 02-10-2025 End: 05-12-2025 Basic metabolic 2000 panel - Serum or Plasma BASIC METABOLIC PANEL Lab Routine SIADH (syndrome of inappropriate ADH production) ([facility]) Expected: 02/10/2025, Expires: 05/12/2025 [facility] Work Phone: Comment on above: Expected: 02/10/2025 , Expires: 05/12/2025 Start: 02-10-2025 End: 05-12-2025 CBC W Auto Differential panel - Blood COMPLETE BLOOD COUNT AND DIFFERENTIAL Lab Routine SIADH (syndrome of inappropriate ADH production) ([facility]) Expected: 02/10/2025, Expires: 05/12/2025 [facility] Comment on above: Expected: 02/10/2025 , Expires: 05/12/2025 Start: 02-10-2025 End: 05-12-2025 Comprehensive metabolic 2000 panel - Serum or Plasma COMPREHENSIVE METABOLIC PANEL Lab Routine SIADH (syndrome of inappropriate ADH production) ([facility]) Expected: 02/10/2025, Expires: 05/12/2025 [facility] Comment on above: Expected: 02/10/2025 , Expires: 05/12/2025 Start: 02-10-2025 End: 05-12-2025 Lipid 1996 panel - Serum or Plasma LIPID PANEL, FASTING Lab Routine Mixed hyperlipidemia Expected: 02/10/2025, Expires: 05/12/2025 [facility] Comment on above: Expected: 02/10/2025 , Expires: 05/12/2025 Start: 02-10-2025 End: 02-10-2025 Patient encounter procedure 02/10/2025 8:40 AM EDT Office Visit Internal Medicine [place] [address] [place], [place] [address] Rochelle Hackett MD [address] [place], [place] [id number] 3 month follow up Internal Medicine [place] Comment on above: 3 month follow up Start: 01-12-2025 End: 01-12-2025 Telemedicine consultation with patient 01/12/2025 1:00 PM EDT Telemedicine Sleep Medicine [facility] [address] [id number] Sleep Medicine [facility] Start: 11-21-2024 Covid-19 Vaccine ( season) Covid-19 Vaccine () [facility] Start: 11-08-2024 End: 11-08-2024 Patient encounter procedure 11/08/2024 9:20 AM EST Office Visit Internal Medicine [place] [address] [place] [address] Rochelle Hackett MD [address] [facility] [place], [place] [address] Follow up Internal Medicine [place] Comment on above: Follow up Start: 11-02-2024 End: 02-01-2025 Basic metabolic 2000 panel - Serum or Plasma [facility] Comment on above: Expected: 11/02/2024 , Expires: 02/01/2025 Start: 10-30-2024 [facility] Start: 09-14-2024 Advance Directive Discussion Advance Directive Discussion [facility] Start: 07-13-2024 End: 07-13-2024 Patient encounter procedure 07/13/2024 9:05 PM EDT Office Visit Neurology [address] [place] [address] Sleep apnea, unspecified type [G47.30] Neurology Comment on above: Sleep apnea, unspeci fied type [G47.30] Start: 07-09-2024 RSV Vaccine (1 - 1-d ose 60+ series) RSV Vaccine (1 - 1-dose 60+ series) [facility] Comment on above: Postponed from 02/02 (Declined at this time) Start: 07-05-2024 End: 07-05-2024 Patient encounter procedure 07/05/2024 9:00 PM EDT Office Visit Neurology [address] [place] [address] Sleep apnea, unspecified type [G47.30] Neurology Comment on above: Sleep apnea, unspeci fied type [G47.30] Start: 06-28-2024 End: 06-28-2024 Patient encounter procedure 06/28/2024 8:45 AM EDT Office Visit Podiatry [address] [place] [address] Sol Harvey [address] [place] [address] 2 week follow up Podiatry Comment on above: 2 week follow up Start: 06-02-2024 End: 06-02-2024 Patient encounter procedure 06/02/2024 3:15 PM EDT Office Visit Podiatry [address] [place] [address] Sol Harvey [address] [place] [address] bilateral ingrown procedure Podiatry Comment on above: bilateral ingrown pr ocedure Start: 05-18-2024 End: 08-17-2024 25-hydroxyvitamin D3 [Mass/volume] in Serum or Plasma VITAMIN D 25 HYDROXY Lab Routine Vitamin D deficiency Expected: 05/18/2024, Expires: 08/17/2024 [facility] Comment on above: Expected: 05/18/2024 , Expires: 08/17/2024 Start: 05-18-2024 End: 08-17-2024 Ferritin [Mass/volume] in Serum or Plasma FERRITIN Lab Routine Iron deficiency Expected: 05/18/2024, Expires: 08/17/2024 [facility] Comment on above: Expected: 05/18/2024 , Expires: 08/17/2024 Start: 05-18-2024 End: 08-17-2024 Iron and Iron binding capacity panel - Serum or Plasma IRON AND TIBC Lab Routine Iron deficiency Expected: 05/18/2024, Expires: 08/17/2024 [facility] Comment on above: Expected: 05/18/2024 , Expires: 08/17/2024 Start: 05-18-2024 End: 08-17-2024 Thyrotropin [Units/volume] in Serum or Plasma THYROID STIMULATING HORMONE Lab Routine Other fatigue Expected: 05/18/2024, Expires: 08/17/2024 [facility] Comment on above: Expected: 05/18/2024 , Expires: 08/17/2024 Start: 05-18-2024 End: 05-18-2024 Patient encounter procedure Internal Medicine [place] Comment on above: Geriatric consult Start: 05-15-2024 Influenza vaccination Influenza Vacc ine (#1) [facility] Start: 05-14-2024 Screening for osteoporosis Bone Dens ity Screening [facility] Start: 05-03-2024 End: 08-02-2024 Magnesium [Mass/volume] in Serum or Plasma MAGNESIUM Lab Routine Medication management Expected: 05/03/2024, Expires: 08/02/2024 [facility] Work Phone: Comment on above: Expected: 05/03/2024 , Expires: 08/02/2024 Start: 04-22-2024 End: 04-22-2024 Patient encounter procedure 04/22/2024 1:40 PM EDT Office Visit Podiatry [address] [place] [address] Sol Harvey [address] [place] [address] ingrown toenail bilateral foot Podiatry Comment on above: ingrown toenail bila teral foot Start: 04-12-2024 End: 07-12-2024 Cobalamin (Vitamin B12) [Mass/volume] in Serum or Plasma [facility] Comment on above: Expected: 04/12/2024 , Expires: 07/12/2024 Start: 04-12-2024 End: 07-12-2024 Comprehensive metabolic 2000 panel - Serum or Plasma [facility] Comment on above: Expected: 04/12/2024 , Expires: 07/12/2024 Start: 04-12-2024 End: 07-12-2024 Ferritin [Mass/volume] in Serum or Plasma [facility] Comment on above: Expected: 04/12/2024 , Expires: 07/12/2024 Start: 04-12-2024 End: 07-12-2024 Iron and Iron binding capacity panel - Serum or Plasma [facility] Work Phone: Comment on above: Expected: 04/12/2024 , Expires: 07/12/2024 Start: 03-25-2024 DIABETES SCREEN DIABETES SCREEN [facility] Start: 01-23-2024 [facility] Start: 12-08-2023 [facility] Start: 12-08-2023 Plain chest X-ray Chest PA and Later al [facility] Start: 12-08-2023 XR Chest PA and Lateral [facility] Start: 12-08-2023 [facility] Start: 12-08-2023 Bacteria identified in Urine by Culture [facility] Start: 11-22-2023 [facility] Start: 11-22-2023 Patient discharge [facility] Start: 11-22-2023 Vitamin B12 measurement [facility] Start: 11-22-2023 Following clinical p athway protocol [facility] Start: 11-22-2023 Assessment of risk o f venous thromboembolism [facility] Start: 11-22-2023 Fall prevention [facility] Start: 11-22-2023 Incentive spirometry [facility] Start: 11-22-2023 Inhalation therapy procedure [facility] Start: 11-22-2023 Insertion of cathete r into peripheral vein [facility] Start: 11-22-2023 Introduction of urin merry catheter [facility] Start: 11-22-2023 Measuring intake and output [facility] Start: 11-22-2023 Oxygen therapy [facility] Start: 11-22-2023 Providing care accor ding to standard [facility] Start: 11-22-2023 Provision of activit y privileges [facility] Start: 11-22-2023 Referral to occupati onal therapist [facility] Start: 11-22-2023 Referral to service [facility] Start: 11-22-2023 [facility] Start: 11-21-2023 Verification routine [facility] Start: 11-21-2023 Admission procedure [facility] Start: 11-21-2023 Hospital admission, emergency, from emergency room, medical nature [facility] Start: 11-21-2023 [facility] Start: 11-21-2023 Respiratory Panel (PCR) Respiratory Panel (PCR) [facility] Start: 09-22-2023 Patient referral [facility] Work Phone: Start: 08-29-2023 [facility] Start: 07-23-2023 End: 10-22-2023 Basic metabolic 2000 panel - Serum or Plasma BASIC METABOLIC PNL Lab Routine Hyponatremia Expected: 07/23/2023 (Approximate), Expires: 10/22/2023 [facility] Work Phone: Comment on above: Expected: 07/23/2023 (Approximate), Expires: 10/22/2023 Start: 07-23-2023 Control nasal hemorr manoj anterior simple CONTROL OF NOSEBLEED [facility] Start: 07-23-2023 End: 07-23-2023 [facility] Start: 05-15-2023 Influenza vaccination INFLUENZA (#1) [facility] Start: 05-08-2023 End: 07-08-2023 Basic metabolic 2000 panel - Serum or Plasma BASIC METABOLIC PNL Lab Routine Hyponatremia Expected: 05/08/2023, Expires: 07/08/2023 [facility] Work Phone: Comment on above: Expected: 05/08/2023 , Expires: 07/08/2023 Start: 04-21-2023 End: 06-21-2023 Magnesium [Mass/volume] in Serum or Plasma MAGNESIUM BLD Lab Routine Medication management Expected: 04/21/2023, Expires: 06/21/2023 [facility] Work Phone: Comment on above: Expected: 04/21/2023 , Expires: 06/21/2023 Start: 04-16-2023 End: 06-16-2023 CBC W Auto Differential panel - Blood [facility] Work Phone: Comment on above: Expected: 04/16/2023 , Expires: 06/16/2023 Start: 04-16-2023 End: 06-16-2023 Comprehensive metabolic 2000 panel - Serum or Plasma [facility] Work Phone: Comment on above: Expected: 04/16/2023 , Expires: 06/16/2023 Start: 04-08-2023 [facility] Start: 11-13-2022 COVID-19 VACCINE (4 - Booster for Pfizer series) COVID-19 VACCINE (4 - Booster for Pfizer series) [facility] Comment on above: Postponed from 09/09 (Declined at this time) Start: 11-13-2022 SHINGRIX VACCINE (2 of 2) TUTTLE GRIX VACCINE (2 of 2) [facility] Comment on above: Postponed from 07/21 (Declined at this time) Start: 11-13-2022 SHINGRIX VACCINE (3 of 3) TUTTLE GRIX VACCINE (3 of 3) [facility] Comment on above: Postponed from 07/21 (Declined at this time) Start: 09-25-2022 End: 11-25-2022 Thyroglobulin Ab [Units/volume] in Serum or Plasma THYROGLOBULIN AB Lab Routine Abnormal thyroid blood test Other fatigue Expected: 09/25/2022 (Approximate), Expires: 11/25/2022 [facility] Work Phone: Comment on above: Expected: 09/25/2022 (Approximate), Expires: 11/25/2022 Start: 09-25-2022 End: 11-25-2022 THYROID PEROXIDASE ANTIBODY BLOOD THYROID PEROXIDASE ANTIBODY BLOOD Lab Routine Abnormal thyroid blood test Other fatigue Expected: 09/25/2022 (Approximate), Expires: 11/25/2022 [facility] Work Phone: Comment on above: Expected: 09/25/2022 (Approximate), Expires: 11/25/2022 Start: 09-25-2022 End: 11-25-2022 Thyrotropin [Units/volume] in Serum or Plasma TSH BLD Lab Routine Abnormal thyroid blood test Other fatigue Expected: 09/25/2022 (Approximate), Expires: 11/25/2022 [facility] Work Phone: Comment on above: Expected: 09/25/2022 (Approximate), Expires: 11/25/2022 Start: 09-25-2022 End: 11-25-2022 Thyroxine (T4) free [Mass/volume] in Serum or Plasma T4 FREE/FREE THYROX Lab Routine Abnormal thyroid blood test Other fatigue Expected: 09/25/2022 (Approximate), Expires: 11/25/2022 [facility] Work Phone: Comment on above: Expected: 09/25/2022 (Approximate), Expires: 11/25/2022 Start: 09-25-2022 End: 11-25-2022 Triiodothyronine (T3) [Mass/volume] in Serum or Plasma T3 BLD Lab Routine Abnormal thyroid blood test Other fatigue Expected: 09/25/2022 (Approximate), Expires: 11/25/2022 [facility] Work Phone: Comment on above: Expected: 09/25/2022 (Approximate), Expires: 11/25/2022 Start: 09-14-2022 ADVANCE DIRECTIVE DISCUSSION ADVANCE DIRECTIVE DISCUSSION [facility] Start: 09-13-2022 ADVANCE DIRECTIVE DISCUSSION ADVANCE DIRECTIVE DISCUSSION [facility] Comment on above: Postponed from 09/14 (Declined at this time) Start: 05-16-2022 End: 07-16-2022 Basic metabolic 2000 panel - Serum or Plasma BASIC METABOLIC PNL Lab Routine 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) Expected: 05/16/2022, Expires: 07/16/2022 [facility] Work Phone: Comment on above: Expected: 05/16/2022 , Expires: 07/16/2022 Start: 05-16-2022 End: 07-16-2022 CBC W Auto Differential panel - Blood CBC + DIFF Lab Routine 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) Expected: 05/16/2022, Expires: 07/16/2022 [facility] Work Phone: Comment on above: Expected: 05/16/2022 , Expires: 07/16/2022 Start: 05-15-2022 Influenza vaccination INFLUENZA (#1) [facility] Start: 05-01-2022 COVID-19 VACCINE (5 - Booster for Pfizer series) COVID-19 VACCINE (5 - Booster for Pfizer series) [facility] Start: 04-29-2022 End: 06-29-2022 CBC panel - Blood by Automated count CBC Lab Routine Medication management Expected: 04/29/2022, Expires: 06/29/2022 [facility] Work Phone: Comment on above: Expected: 04/29/2022 , Expires: 06/29/2022 Start: 04-29-2022 End: 06-29-2022 Magnesium [Mass/volume] in Serum or Plasma MAGNESIUM BLD Lab Routine Medication management Expected: 04/29/2022, Expires: 06/29/2022 [facility] Work Phone: Comment on above: Expected: 04/29/2022 , Expires: 06/29/2022 Start: 04-29-2022 End: 06-29-2022 SCHEDULE LAB TESTING SCHEDULE LAB TESTING Lab Routine Expected: 04/29/2022, Expires: 06/29/2022 [facility] Work Phone: Comment on above: Expected: 04/29/2022 , Expires: 06/29/2022 Start: 03-18-2022 Vitamin D, 1,25-dihy droxy measurement [facility] Work Phone: Start: 02-07-2022 End: 02-17-2022 SARS-CoV-2 (COVID-19) RNA [Presence] in Respiratory specimen by MIGUEL ANGEL with probe detection ASYMPTOMATIC ELECTIVE COVID-19 Microbiology Routine Exposure to COVID-19 virus Expected: 02/07/2022, Expires: 02/17/2022 [facility] Work Phone: Comment on above: Expected: 02/07/2022 , Expires: 02/17/2022 Start: 10-15-2017 End: 08-03-2017 *Hepatic Function Panel *Hepatic Function Panel [facility] Work Phone: Start: 10-15-2017 End: 08-03-2017 Lipid panel [AGGREGATE] *Lipid Profile CC PCP [employer] Work Phone: Start: 09-01-2017 End: 09-01-2017 [facility]ointment [facility] Work Phone: Start: 08-27-2017 [facility] Start: 08-14-2017 End: 08-03-2017 48 hour holter monitor 48 hour holter monitor [place] [facility] Work Phone: Start: 08-14-2017 End: 08-03-2017 Echocardiography Echocardiogram (complete) [employer] Work Phone: Start: 08-03-2017 End: 08-04-2017 *BMP *BMP [employer] Work Phone: Start: 08-03-2017 End: 08-04-2017 Magnesium *Magnesium [employer] Work Phone: Start: 05-28-2017 End: 05-28-2017 Us exam, breast(s) US Breast(s) [employer] Work Phone: Start: 04-24-2017 End: 04-24-2017 Oncology Referral Oncology Referral [employer] Work Phone: Start: 02-26-2017 End: 02-26-2017 Follow Up Appt 6 months Follow Up Appt 6 months [facility] Work Phone: Start: 02-26-2017 End: 02-26-2017 MMM MMM [facility] Work Phone: Start: 12-19-2016 PNEUMOCOCCAL: 65+ (3 - PPSV23 or PCV20) PNEUMOCOCCAL: 65+ (3 - PPSV23 or PCV20) [facility] Start: 11-05-2016 End: 11-05-2016 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 CEO & 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 & 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 [facility] Work Phone: Start: 11-05-2016 End: 11-05-2016 Follow Up Appt 6 months Follow Up Appt 6 months [facility] Work Phone: Start: 08-26-2016 End: 08-26-2016 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 CEO & 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 & PRESIDENT [facility] Work Phone: Start: 08-26-2016 End: 08-26-2016 Follow Up Appt 6 months Follow Up Appt 6 months [facility] Work Phone: Start: 02-22-2016 End: 02-22-2016 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 CEO & 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 & PRESIDENT [facility] Work Phone: Start: 02-22-2016 End: 02-22-2016 Follow Up Appt 6 months Follow Up Appt 6 months [facility] Work Phone: Start: 01-28-2016 End: 02-08-2016 *Hepatic Function Panel *Hepatic Function Panel [facility] Work Phone: Start: 01-28-2016 End: 02-08-2016 Lipid panel [AGGREGATE] *Lipid Profile CC PCP [facility] Work Phone: Start: 10-16-2015 End: 10-16-2015 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 & 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 & 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 [facility] Work Phone: Start: 10-16-2015 End: 10-16-2015 Follow Up Appt 3 months Follow Up Appt 3 months [facility] [facility] Work Phone: Start: 08-30-2015 End: 08-30-2015 24 hour holter monitor 24 hour holter monitor [facility] Work Phone: Start: 08-30-2015 End: 08-30-2015 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 CEO & 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 & PRESIDENT [facility] Work Phone: Start: 08-30-2015 End: 08-30-2015 Follow Up Appt 6 weeks Follow Up Appt 6 weeks [facility] Work Phone: Start: 06-28-2015 End: 09-11-2015 *BMP *BMP [facility] Work Phone: Start: 06-28-2015 End: 06-28-2015 Follow Up Appt Other Follow Up Appt Other [facility] Work Phone: Start: 06-28-2015 End: 09-11-2015 Magnesium *Magnesium [facility] Work Phone: Start: 06-01-2015 Screening for malign ant neoplasm of colon COLORECTAL CANCER SCREENING DISCUSSION [facility] Start: 05-16-2015 End: 05-16-2015 FOUNDER CEO & 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 & PRESIDENT [facility] Work Phone: Start: 05-16-2015 End: 05-16-2015 Follow Up Appt 3 months Follow Up Appt 3 months [facility] Work Phone: Start: 02-12-2015 End: 02-12-2015 Follow Up Appt 2 months Follow Up Appt 2 months [facility] [facility] Work Phone: Start: 02-12-2015 End: 02-12-2015 Follow Up Appt Other Follow Up Appt Other [facility] Work Phone: Start: 02-12-2015 End: 02-12-2015 MMM MMM [facility] Work Phone: Start: 02-12-2015 End: 02-12-2015 Nuclear stress test -exercise Nuclear stress test -exercise [facility] Work Phone: Start: 02-12-2015 End: 02-12-2015 Xtr mobile cv telemetry w/i&report 30 days 30 Day Holter Monitor [facility] Work Phone: Start: 01-16-2015 End: 01-25-2015 *BMP *BMP [facility] Work Phone: Start: 01-16-2015 End: 01-16-2015 FOUNDER CEO & 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 & PRESIDENT [facility] Work Phone: Start: 01-16-2015 End: 01-16-2015 Follow Up Appt 6 months Follow Up Appt 6 months [facility] Work Phone: Start: 01-16-2015 End: 01-25-2015 Lipid panel [AGGREGATE] *Lipid Profile CC PCP [facility] Work Phone: Start: 01-16-2015 End: 01-25-2015 Magnesium *Magnesium [facility] Work Phone: Start: 08-21-2014 Potassium [Moles/vol ume] in Serum or Plasma POTASSIUM [facility] Start: 07-20-2014 End: 07-25-2014 *BMP *BMP [facility] Work Phone: Start: 07-20-2014 End: 07-20-2014 FOUNDER CEO & 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 & PRESIDENT [facility] Work Phone: Start: 07-20-2014 End: 07-20-2014 Ecg routine ecg w/least 12 lds w/i&r EKG (In office) [facility] Work Phone: Start: 07-20-2014 End: 07-20-2014 Follow Up Appt 6 months Follow Up Appt 6 months [facility] Work Phone: Start: 07-20-2014 End: 07-25-2014 Magnesium *Magnesium [facility] Work Phone: Start: 01-12-2014 End: 01-12-2014 *BMP *BMP [facility] Work Phone: Start: 01-12-2014 End: 01-12-2014 *Hepatic Function Panel *Hepatic Function Panel [facility] Work Phone: Start: 01-12-2014 End: 01-12-2014 FOUNDER CEO & 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 & PRESIDENT [facility] Work Phone: Start: 01-12-2014 End: 01-12-2014 Ecg routine ecg w/least 12 lds w/i&r EKG (In office) [facility] Work Phone: Start: 01-12-2014 End: 01-12-2014 Follow Up Appt 6 months Follow Up Appt 6 months [facility] Work Phone: Start: 01-12-2014 End: 01-12-2014 Magnesium *Magnesium [facility] Work Phone: Start: 10-10-2013 End: 07-25-2014 *BMP *BMP [facility] Work Phone: Start: 10-10-2013 End: 07-25-2014 *CBC with Differential *CBC with Differential [facility] Work Phone: Start: 10-10-2013 End: 07-25-2014 Ecg routine ecg w/least 12 lds w/i&r EKG (In office) [facility] Work Phone: Start: 10-10-2013 End: 07-25-2014 Follow Up Appt Other Follow Up Appt Other [facility] Work Phone: Start: 10-10-2013 End: 07-25-2014 INR Coag RelTime (PPP) *PT/INR [facility] Work Phone: Start: 10-10-2013 End: 07-25-2014 Magnesium *Magnesium [facility] Work Phone: Start: 09-28-2013 End: 09-28-2013 FOUNDER CEO & 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 & PRESIDENT [facility] Work Phone: Start: 09-28-2013 End: 07-25-2014 Ecg routine ecg w/least 12 lds w/i&r EKG (In office) [facility] Work Phone: Start: 09-28-2013 End: 09-28-2013 Echocardiography Echocardiogram (complete) [facility] Work Phone: Start: 09-28-2013 End: 09-28-2013 Follow Up Appt 2 months Follow Up Appt 2 months [facility] Work Phone: Start: 08-08-2013 End: 08-09-2013 *BMP *BMP [facility] Work Phone: Start: 08-08-2013 End: 08-09-2013 *CBC with Differential *CBC with Differential [facility] Work Phone: Start: 08-08-2013 End: 08-09-2013 BNP *Brain Natriuretic Peptide BNP [facility] Work Phone: Start: 08-08-2013 End: 07-25-2014 FOUNDER CEO & 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 & PRESIDENT [facility] Work Phone: Start: 08-08-2013 End: 08-08-2013 Ecg routine ecg w/least 12 lds w/i&r EKG (In office) [facility] Work Phone: Start: 08-08-2013 End: 07-25-2014 Follow Up Appt 6 weeks Follow Up Appt 6 weeks [facility] Work Phone: Start: 08-08-2013 End: 08-09-2013 Magnesium *Magnesium [facility] Work Phone: Start: 07-21-2013 End: 07-22-2013 INR Coag RelTime (PPP) *PT/INR - Standing Order [facility] Work Phone: Start: 06-29-2013 End: 07-21-2013 24 hour holter monitor 24 hour holter monitor [facility] Work Phone: Start: 06-29-2013 End: 06-29-2013 Ecg routine ecg w/least 12 lds w/i&r EKG (In office) [facility] Work Phone: Start: 03-22-2013 End: 03-22-2013 Follow Up Appt 6 months Follow Up Appt 6 months [facility] Work Phone: Start: 03-22-2013 End: 03-22-2013 MMM MMM [facility] Work Phone: Start: 03-02-2013 End: 03-02-2013 Follow Up Appt Other Follow Up Appt Other [facility] Work Phone: Start: 03-02-2013 End: 03-02-2013 Nuclear stress test -exercise Nuclear stress test -exercise [facility] Work Phone: Start: 11-17-2012 End: 11-17-2012 FOUNDER CEO & 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 & PRESIDENT [facility] Work Phone: Start: 11-17-2012 End: 11-17-2012 Follow Up Appt 4 months Follow Up Appt 4 months [facility] Work Phone: Start: 10-12-2012 End: 10-06-2012 24 hour holter monitor 24 hour holter monitor [facility] Work Phone: Start: 09-20-2012 End: 09-15-2012 Left Heart Cath Left Heart Cath [facility] Work Phone: Start: 09-16-2012 End: 09-22-2012 *BMP *BMP [facility] Work Phone: Start: 09-16-2012 End: 09-22-2012 CBC W Auto Differential panel - Blood *CBC without Diff [facility] Work Phone: Start: 09-16-2012 End: 09-22-2012 Chest x-ray X-Ray, Chest, PA & Lateral [facility] Work Phone: Start: 09-16-2012 End: 09-16-2012 Ecg routine ecg w/least 12 lds w/i&r EKG (In office) [facility] Work Phone: Start: 09-16-2012 End: 09-22-2012 INR Coag RelTime (PPP) *PT/INR [facility] Work Phone: Start: 09-13-2012 End: 09-13-2012 24 hour holter monitor 24 hour holter monitor [facility] Work Phone: Start: 09-13-2012 End: 09-15-2012 BNP *Brain Natriuretic Peptide BNP [facility] Work Phone: Start: 09-13-2012 End: 09-13-2012 Echocardiography Echocardiogram (complete) [facility] Work Phone: Start: 09-01-2012 End: 09-01-2012 Follow Up Appt 3 months Follow Up Appt 3 months [facility] Work Phone: Start: 03-09-2012 End: 09-01-2012 *BMP *BMP [facility] Work Phone: Start: 03-09-2012 End: 03-09-2012 Follow Up Appt 6 months Follow Up Appt 6 months [facility] Work Phone: Start: 01-12-2007 Medicare Annual Well ness Visit Medicare Annual Wellness Visit [facility] Start: 1982 Screening for malign ant neoplasm of breast MAMMOGRAM SCREENING DISCUSSION [facility] Start: 1963 Screening for malign ant neoplasm of cervix CERVICAL CANCER SCREENING DISCUSSION [facility] Start: 1961 Third diphtheria, te tanus and acellular pertussis (DTaP) vaccination TDAP (ADULT) [facility] Start: 1942 Screening for osteoporosis DEXA SCAN DISCUSSION [facility] Bacteria identified in Urine by Culture URINE CULTURE Microbiology Routine Urinary frequency Ordered: 08/19/2022 [facility] Work Phone: Comment on above: Ordered: 08/19/2022 Bacteria identified in Urine by Culture BACTERIAL CULTURE, URINE Microbiology Routine Dysuria 11/02/2024 2:30 PM EST [facility] CBC W Auto Different ial panel - Blood [facility] Work Phone: CBC W Auto Different ial panel - [facility] Clostridioides diffi cile toxin genes [Presence] in Stool by MIGUEL ANGEL with probe detection C. DIFFICILE PCR Lab Routine Diarrhea, unspecified type 04/16/2023 9:00 AM EDT [facility] Work Phone: Complete blood count [facility] End: 12-01-2024 CT Head WO contrast CT BRAIN WO IVCON Radiology Routine TIA (transient ischemic attack) Aphasia Ocular migraine 1 Occurrences starting 11/02/2023 until 12/01/2024 [facility] Work Phone: Comment on above: 1 Occurrences starti ng 11/02/2023 until 12/01/2024 DXA Bone [Mass/Area] Bone density [facility] Work Phone: DXA Bone [Mass/Area] Bone density [facility] ENTERIC BACTERIAL PA JAQUELIN BY PCR ENTERIC BACTERIAL PANEL BY PCR Lab Routine Diarrhea, unspecified type 04/16/2023 8:00 AM EDT [facility] Work Phone: Folate [Mass/volume] in Serum or Plasma [facility] Wever and lambda lig ht chains [facility] MG Breast - right Screening [facility] Work Phone: MG Breast - right Screening [facility] MG Breast - right Screening [facility] MG Breast Diagnostic [facility] Ova and parasites identified in Unspecified specimen by Light microscopy OVA + PARA MICROSCOPIC Microbiology Routine Diarrhea, unspecified type 04/16/2023 8:00 AM EDT [facility] Work Phone: Patient Education [facility] Work Phone: Patient referral [facility] Work Phone: End: 05-18-2025 Polysomnogram POLYSOMNOGRAM (PSG) Procedures Routine Sleep apnea, unspecified type 1 Occurrences starting 05/18/2024 until 05/18/2025 [facility] Work Phone: Comment on above: 1 Occurrences starti ng 05/18/2024 until 05/18/2025 End: 01-15-2024 PVR ANK PRESS [facility] PVR ANK PRESS [facility] Vascular Lab Routine Onychomycosis Diminished pulses in lower extremity 1 Occurrences starting 01/14/2023 until 01/15/2024 [facility] Work Phone: Comment on above: 1 Occurrences starti ng 01/14/2023 until 01/15/2024 Radionuclide imaging of perfusion of myocardium under exercise stress [facility] Respiratory pathogen s DNA and RNA panel - Respiratory specimen by MIGUEL ANGEL with probe detection [facility] Thiamine measurement [facility] Thyroid stimulating hormone measurement [facility] UA DIP, URINE (POC) UA DIP, URIN E (POC) Lab Routine Dysuria Ordered: 11/02/2024 [facility] Work Phone: Comment on above: Ordered: 11/02/2024 Urinalysis complete panel - Urine URINALYSIS, WITH MICROSCOPIC Lab Routine Dysuria 11/02/2024 2:30 PM EST [facility] End: 11-02-2024 US Carotid arteries - bilateral US CAROTID ARTERIES [facility] Vascular Lab Routine TIA (transient ischemic attack) Aphasia Ocular migraine 1 Occurrences starting 11/02/2023 until 11/02/2024 [facility] Work Phone: Comment on above: 1 Occurrences starti ng 11/02/2023 until 11/02/2024 [facility] Work Phone: [facility] Vitamin B12 measurement [facility] Vitamin D, 1,25-dihy droxy measurement [facility] Work Phone: End: 05-15-2024 XR ABDOMEN 1V SUPINE XR ABDOMEN 1V SUPINE Radiology Routine Diarrhea, unspecified type 1 Occurrences starting 04/16/2023 until 05/15/2024 [facility] Work Phone: Comment on above: 1 Occurrences starti ng 04/16/2023 until 05/15/2024 XR ABDOMEN 1V SUPINE XR ABDOMEN 1V SUPINE Radiology Routine Diarrhea, unspecified type 04/16/2023 9:01 AM EDT [facility] Work Phone: End: 05-17-2023 XR KNEE GENERAL 4V AP BOTH/PA BOTH/LAT/MERC RIGHT XR KNEE GENERAL 4V AP BOTH/PA BOTH/LAT/MERC RIGHT Radiology Routine Pain 1 Occurrences starting 04/17/2022 until 05/17/2023 [facility] Work Phone: Comment on above: 1 Occurrences starti ng 04/17/2022 until 05/17/2023 End: 08-27-2024 XR KNEE GENERAL 4V AP BOTH/PA BOTH/LAT/MERC RIGHT XR KNEE GENERAL 4V AP BOTH/PA BOTH/LAT/MERC RIGHT Radiology Routine Right knee pain, unspecified chronicity 1 Occurrences starting 07/29/2023 until 08/27/2024 [facility] Work Phone: Comment on above: 1 Occurrences starti ng 07/29/2023 until 08/27/2024 End: 12-02-2025 XR Lumbar spine 3 Views XR LUMBAR GENERAL 3V AP/LAT/L5-S1 Radiology Routine Acute midline back pain, unspecified back location Fall, subsequent encounter 1 Occurrences starting 11/02/2024 until 12/02/2025 [facility] Comment on above: 1 Occurrences starti ng 11/02/2024 until 12/02/2025 XR Lumbar spine 3 Views XR LUMBA R GENERAL 3V AP/LAT/L5-S1 Radiology Routine Acute midline back pain, unspecified back location Fall, subsequent encounter 11/02/2024 1:40 PM EST [facility] End: 12-02-2025 XR Thoracic spine AP and Lateral and Swimmers XR THORACIC GENERAL 3V AP/LAT/SWIMMERS Radiology Routine Acute midline back pain, unspecified back location Fall, subsequent encounter 1 Occurrences starting 11/02/2024 until 12/02/2025 [facility] Comment on above: 1 Occurrences starti ng 11/02/2024 until 12/02/2025 XR Thoracic spine AP and Lateral and Swimmers XR THORACIC GENERAL 3V AP/LAT/SWIMMERS Radiology Routine Acute midline back pain, unspecified back location Fall, subsequent encounter 11/02/2024 1:40 PM [facility] Immunizations Immunization Date Immunization Notes Care Provider Niko ruby 07-09-2023 influenza (HD-IIV4) vaccine, age 65+ yr, high dose, quadrivalent, PF (FLUZONE HIGH-DOSE) Al Nichole BEET TOPPERRAE Work Phone: [facility] 07-09-2023 influenza virus vacc ine, unspecified formulation Rochelle Hackett MD Work Phone: [facility] 06-30-2022 tetanus and diphther ia toxoids, adsorbed, preservative free, for adult use (5 Lf of tetanus toxoid and 2 Lf of diphtheria toxoid) Sofía Baig PA-C Work Phone: [facility] 05-21-2022 influenza (aIIV4) vaccine, age 65+ yr, quadrivalent, PF (FLUAD QUADRIVALENT) Sofía Baig PA-C Work Phone: [facility] 05-21-2022 influenza, high dose seasonal, preservative-free Maggi Mcdaniel PA-C Work Phone: [facility] 12-30-2021 COVID-19 original vaccine, age 12+ yr, monovalent (PFIZER-BIONTECH - AGUILAR TOP) Sofía Baig PA-C Work Phone: [facility] 12-30-2021 COVID-19 vaccine, ag e 12+ yr (PFIZER-BIONTECH - PURPLE TOP) Al Nichole 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 Work Phone: [facility] 11-25-2021 hepatitis A vaccine, adult dosage Rochelle Hackett MD Work Phone: [facility] 05-29-2021 influenza (aIIV4) vaccine, age 65+ yr, quadrivalent, PF (FLUAD QUADRIVALENT) Rochelle Hackett MD Work Phone: [facility] 05-15-2021 influenza virus vacc ine, unspecified formulation Rochelle Hackett MD Work Phone: [facility] 11-06-2020 Covid (Pfizer) Dr. Rochelle friedman Work Phone: [facility] 10-16-2020 Covid (Pfizer) Dr. Rochelle friedman Work Phone: [facility] 05-26-2020 influenza, injectabl e, quadrivalent, preservative free Sofía Baig PA-C Work Phone: [facility] 05-26-2020 zoster vaccine recombinant Sofía Baig PA-C Work Phone: [facility] 05-23-[address] Rochelle Hackett Work Phone: [facility] 05-23-2020 influenza, seasonal, injectable, preservative free Sofía Bogner PA-C Work Phone: [facility] 03-05-2020 hepatitis A vaccine, adult dosage Sofía Bogner PA-C Work Phone: [facility] 03-05-2020 zoster vaccine recombinant Sofía Bogner PA-C Work Phone: [facility] 07-26-2019 influenza, high dose seasonal, preservative-free Rochelle Hackett MD Work Phone: [facility] Work Phone: 07-15-[address] Rochelle Hackett Work Phone: [facility] 11-16-2018 influenza, seasonal, injectable, preservative free Sofía Bogner PA-C Work Phone: [facility] 11-16-2018 pneumococcal polysaccharide vaccine, 23 valent Sofía Bogner PA-C Work Phone: [facility] 12-10-2017 influenza, seasonal, injectable, preservative free Sofía Bogner PA-C Work Phone: [facility] 12-10-2017 pneumococcal polysaccharide vaccine, 23 valent Sofía Bogner PA-C Work Phone: [facility] 12-20-2015 pneumococcal conjuga te vaccine, 13 valent Rochelle Hackett MD Work Phone: [facility] Work Phone: 07-11-[address] Rochelle Hackett Work Phone: [facility] 06-14-2013 influenza virus vacc ine, unspecified formulation Maya Sal MD Work Phone: [facility] 07-12-2012 influenza virus vacc ine, unspecified formulation Rochelle Hackett MD Work Phone: [facility] Work Phone: 01-08-2010 tetanus and diphther ia toxoids, adsorbed, preservative free, for adult use (2 Lf of tetanus toxoid and 2 Lf of diphtheria toxoid) Rochelle Hackett MD Work Phone: [facility] Work Phone: 01-08-2010 zoster vaccine, live Rochelle Hackett MD Work Phone: [facility] Work Phone: 06-12-2009 influenza virus vacc ine, unspecified formulation Rochelle Hackett MD Work Phone: [facility] Work Phone: 05-04-2007 pneumococcal polysaccharide vaccine, 23 valent Rochelle Hackett MD Work Phone: [facility] Work Phone: 05-04-[address] Marcos Hackett Work Phone: [facility] Work Phone: 05-04-2007 pneumococcal vaccine , unspecified formulation Dr. Rochelle Hackett Work Phone: [facility] Payers Date Payer Category Payer Private Health Insurance UNITED EMIR[employer]I UNITED [employer]IR[employer]I SUPPLEMENT [id number] 2021-Present [phone] [address] [place] [address] Indemni [id number] 2017 Private Health Insurance [id number] 2017 Self-pay [id number] 2010 Private Health Insurance [id number] 2010 Private Health Insurance [id number] 2007 Medicare MEDICARE MEDICAR E A AND B [id number] 2007-Present [phone] [address] [address] [place] [address] Medicare [id number] 2007 Medicare [id number] 2007 Medicare [id number] 1942 Unknown [id number] 1942 Unknown [id number] Unknown [id number] Unknown [id number] Unknown [id number] Unknown [id number] [id number] Unknown [id number] Unknown [id number] [id number] Unknown [id number] [id number] Unknown [id number] [id number] Unknown [id number] Unknown [id number] [id number] Unknown [id number] Unknown [id number] 2.462 Unknown [id number]. 2.462 Unknown [id number] Unknown [id number] Unknown [id number] Social History Date Type Detail Facility Start: 11-25-2021 End: 08-29-2023 Tobacco smoking status GAIS Unknown if ever smoked [facility] Start: 01-21-2021 Occasional [facility] Start: 01-21-2021 None [facility] Start: 01-21-2021 Homeless [facility] Start: 01-21-2021 Non-smoker [facility] Start: 1940 Sex Assigned At Female [facility] Work Phone: Start: 04-21-2022 End: 10-30-2024 Tobacco smoking status NHIS Never smoked tobacco [facility] Start: 10-07-2021 End: 02-10-2025 Alcohol intake Current drinker of alcohol (finding) [facility] Start: 10-07-2021 End: 01-14-2023 Alcohol intake [facility] Start: 01-27-2020 End: 08-22-2022 History SDOH Alcohol Frequency 3 [facility] Start: 11-17-2019 End: 08-22-2022 History SDOH Alcohol Std Drinks 1 [facility] Start: 10-28-2012 History SDOH Alcohol Comment 1 glass per week [facility] Start: 11-17-2019 End: 08-22-2022 History SDOH Social Connections Phone 5 [facility] Start: 11-17-2019 End: 08-22-2022 History SDOH Transport Med 2 [facility] Start: 11-16-2019 Education 20 [facility] Start: 02-23-2021 End: 08-04-2022 Exposure to SARS-CoV-2 (event) Not sure [facility] Start: 07-13-2013 End: 04-21-2022 Tobacco use and exposure Smokeless tobacco non-user [facility] Start: 05-15-2022 End: 08-22-2022 History SDOH Social Connections Get Together 4 [facility] Start: 08-22-2022 History SDMN Alcohol Std Drinks 0 [facility] Start: 08-22-2022 End: 01-14-2023 Social connection and isolation panel [facility] Do you belong to any clubs or organizations such as moravian groups, unions, fraternal or athletic groups, or school groups? Yes [facility] Are you now , , , , never or living with a partner? [facility] How often to you hav e a drink containing alcohol? Monthly or less [facility] How many standard dr inks containing alcohol do you have on a typical day? Patient does not drink [facility] How often do you hav e 6 or more drinks on 1 occasion? Never [facility] Do you feel stress - tense, restless, nervous, or anxious, or unable to sleep at night because your mind is troubled all the time - these days [OSQ] Only a little [facility] (I/We) worried wheada er (my/our) food would run out before (I/we) got money to buy more. Never true [facility] In the past 12 month s, was there a time when you were not able to pay the mortgage or rent on time? No [facility] Start: 09-29-2017 Gender identity Identifies as female gender (finding) [facility] Work Phone: Start: 02-01-2020 Sexual orientation Heterosexual (finding) [facility] Work Phone: How often to you hav e a drink containing alcohol? 2-4 times a month [facility] How many standard dr inks containing alcohol do you have on a typical day? 1 or 2 [facility] Do you feel stress - tense, restless, nervous, or anxious, or unable to sleep at night because your mind is troubled all the time - these days [OSQ] To some extent [facility] Start: 09-29-2024 Alcoholic beverage intake Current non-drinker of alcohol (finding) [facility] Start: 07-13-2013 Alcohol Comment used to drink 1 glass of wine daily but not an occassional sip out of her 's glass. [facility] Start: 1940 Sex assigned at Not on file [facility] Start: 12-23-2024 Sex Female (finding) [facility] Functional Status Date Assessment Result Facility 11-04-2024 Total score [AUDIT-C] 0 11/04/19 4:25 PM EST User, Rachellhart [facility] 11-04-2024 Within the last year , have you been humiliated or emotionally abused in other ways by your partner or ex-partner? No 11/04/2024 4:25 PM EST User, Mychart No [facility] 11-04-2024 Within the last year , have you been afraid of your partner or ex-partner? No 11/04/2024 4:25 PM EST User, Mychart No [facility] 11-04-2024 Within the last year , have you been raped or forced to have any kind of sexual activity by your partner or ex-partner? No 11/04/2024 4:25 PM EST User, Rachellhart No [facility] 11-04-2024 Within the last year , have you been kicked, hit, slapped, or otherwise physically hurt by your partner or ex-partner? No 11/04/2024 4:25 PM EST User, Rachellhart No [facility] 11-04-2024 How often to you hav e a drink containing alcohol? Never 11/04/2024 4:25 PM EST User, Mychart Never [facility] 11-04-2024 Functional status Patient does n ot drink 11/04/2024 4:25 PM EST User, [email or web address] Patient does not drink [facility] 11-04-2024 How often do you hav e 6 or more drinks on 1 occasion? Never 11/04/2024 4:25 PM EST User, Mychart Never [facility] 11-22-2023 Functional status Ambulates;Bath room Privilege [facility] Work Phone: 01-22-2015 Are you deaf, or do you have serious difficulty hearing No 01/22/2015 4:45 PM EDT Nadeen Cox Cma No [facility] 01-22-2015 Are you blind, or do you have serious difficulty seeing, even when wearing glasses No 01/22/2015 4:45 PM EDT Nadeen Cox Cma No [facility] 01-22-2015 Do you have serious difficulty walking or climbing stairs No 01/22/2015 4:45 PM EDT Nadeen Cox Cma No [facility] 01-22-2015 Do you have difficul ty dressing or bathing No 01/22/2015 4:45 PM EDT Nadeen Cox Cma No [facility] 01-22-2015 Because of a physica l, mental, or emotional condition, do you have difficulty doing errands alone such as visiting a physician's office or shopping No 01/22/2015 4:45 PM EDT Nadeen Cox Cma No [facility] Mental Status Date Assessment Result Facility 09-20-2024 Cognitive function Voice/Name [facility] Work Phone: 12-08-2023 Cognitive function Level Of Cons ciousness Awake;Alert;Appropriate [facility] Work Phone: 11-22-2023 Cognitive function Voice/Name [facility] Work Phone: 10-01-2023 Cognitive function Voice/Name [facility] Work Phone: 04-09-2023 Cognitive function Voice/Name [facility] Work Phone: 04-08-2023 Cognitive function Level Of Cons ciousness Awake;Alert;Appropriate [facility] Work Phone: 10-08-2022 Cognitive function Awake;Alert;A ppropriate;Fol lows Commands [facility] Work Phone: 08-17-2022 Cognitive function Voice/Name [facility] Work Phone: 10-24-2021 Cognitive function Voice/Name [facility] Work Phone: 09-26-2021 Cognitive function Voice/Name [facility] Work Phone: 07-07-2019 Cognitive function Mood Descript ion Appropriate;Calm;Relaxed [facility] Work Phone: 01-22-2015 Because of a physica l, mental, or emotional condition, do you have serious difficulty concentrating, remembering, or making decisions No 01/22/2015 4:45 PM EDT Nadeen Cox Cma No [facility] Clinical Notes 12-20-2015 to 02-22-2025 Telephone [...] Blankenship RN February 22, 2025 1:36 PM [facility] 02-22-2025 Miscellaneous Notes Pt reports she [...] 2025 1:36 PM documented in this encounter [facility] 02-10-2025 Instructions Rochelle Hackett MD - 02/10/2025 9:21 AM EDT We discussed your overall health and recent improvements: - You reported feeling much better overall, with increased energy and reduced back pain. You attribute these improvements to physical therapy, increased activity, and seasonal changes. - You have been engaging in chair yoga at the [facility] and plan to resume independent exercises at [facility] starting next week. We discussed your back [...] in your health. documented in this encounter [facility] 02-10-2025 Note HNO ID: [id number] Author: ROCHELLE HACKETT MD Service: ? Author [...] which she attributes to physical therapy at [facility] and increased physical activity. She has been more active, engaging in chair yoga at the [facility] and walking on her property. She also notes an improvement in her energy levels and attributes this to both physical activity and the seasonal change, as she experiences worsening symptoms of seasonal affective disorder during the darker months. Rosana has a history of insomnia and has had two appointments with a sleep physician at [facility]. A recent sleep study revealed frequent arousals [...] She has an upcoming appointment with a knife operator in February and plans to discuss her [...] thyroid, no carotid (more content not included)... [facility] 02-10-2025 History of Presen t illness [...] which she attributes to physical therapy at [facility] and increased physical activity. She has been more active, engaging in chair yoga at the [facility] and walking on her property. She also notes an improvement in her energy levels and attributes this to both physical activity and the seasonal change, as she experiences worsening symptoms of seasonal affective disorder during the darker months. Rosana has a history of insomnia and has had two appointments with a sleep physician at [facility]. A recent sleep study revealed frequent arousals [...] She has an upcoming appointment with a knife operator in February and plans to discuss her [...] Under management by a sleep physician at [facility]. Recent sleep study showed frequent arousals; no evidence of sleep apnea. 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 Managed with sodium tablets as needed. No recent emergency room visits for hyponatremia-related nausea and vomiting. - Ordered BMP to monitor sodium levels. - Continue sodium tablets as needed. - Follow-up with Dr. Sahu as scheduled. 5. Protein-calorie malnutrition, unspecified severity ([facility]) (E46) Improved appetite and increased food intake [...] excuse any unintended typographical errors. Recording using [employer] software for draft documentation of the visit was discussed with the patient/authorized statement services representative; all questions welcomed and answered. Patient/authorized statement services representative agreed to proceed Rochelle Hackett MD documented in this encounter [facility] 12-27-2024 Note HNO ID: [id number] Author: ANAYELI PETTIT RN Service: ? Author [...] - Bi-Weekly Outreach (Recurring) Disposition Based on grease refining supervisor, the following disposition is advised: No action needed Anayeli Pettit RN December 27, 2024 2:09 PM [facility] 12-27-2024 History of Presen t illness Narrative Images from the original note were not included. [facility] Care Path Telephonic Outreach Provider Action/FYI Patient [...] - Bi-Weekly Outreach (Recurring) Disposition Based on grease refining supervisor, the following disposition is advised: No action needed Anayeli Pettit RN December 27, 2024 2:09 PM documented in this encounter [facility] 12-27-2024 Note Patient Outreach (AM BC) ROSANA MAKI ([id number]) 1940 F NFR Date Time Provider Department [...] - Bi-Weekly Outreach (Recurring) Disposition Based on grease refining supervisor, the following disposition is advised: No action [...] Asymptomatic Postmenopausal Status (Age-Related* 10/28/2012 Osteoarth NOS-L/Leg [[id number]] Palpitations [R00.2] 02/23/2009 Osteoporosis [M81.0] 07/04/2009 03/13/2012 Insomnia [G47.00] 02/11/2011 Hyponatremia [E87.1] 02/11/2011 Chronic fatigue disorder [G93.32] 02/11/2011 Paroxysmal atrial fibrillation (HCC) [I48.0] Mitral valve prolapse [I34.1] Closed fracture of lumbar vertebra (HCC) (more content not included)... [facility] 12-13-2024 Note HNO ID: [id number] Author: ANAYELI PETTIT RN Service: ? Author Type: Registered Nurse Type: Progress Notes Filed: 12/13/2024 13:26 Note Text: [facility] Care Path Telephonic Outreach Provider Action/FYI Patient identified by Name and Date of . Discussed care with patient. Still having pain from her fall in October. Did some physical therapy and now has MRI scheduled. Had follow up with ortho/spine at [place]. Gets fatigued. Encouraged to keep trying to [...] - Bi-Weekly Outreach (Recurring) Disposition Based on grease refining supervisor, the following disposition is advised: No action needed Anayeli Pettit RN December 13, 2024 1:21 PM [facility] 12-13-2024 History of Presen t illness Narrative Images from the original note were not included. [facility] Care Path Telephonic Outreach Provider Action/FYI Patient identified by Name and Date of . Discussed care with patient. Still having pain from her fall in October. Did some physical therapy and now has MRI scheduled. Had follow up with ortho/spine at [place]. Gets fatigued. Encouraged to keep trying to [...] - Bi-Weekly Outreach (Recurring) Disposition Based on grease refining supervisor, the following disposition is advised: No action needed Anayeli Pettit RN December 13, 2024 1:21 PM documented in this encounter [facility] 12-13-2024 Note Patient Outreach (AM [facility]) ROSANA MAKI ([id number]) 1940 F NFR Date Time Provider Department [...] scheduled. Had follow up with ortho/spine at [place]. Gets fatigued. Encouraged to keep trying to [...] - Bi-Weekly Outreach (Recurring) Disposition Based on grease refining supervisor, the following disposition is advised: No action [...] Asymptomatic Postmenopausal Status (Age-Related* 10/28/2012 Osteoarth NOS-L/Leg [[id number]] Palpitations [R00.2] 02/23/2009 Osteoporosis [M81.0] 07/04/2009 03/13/2012 Insomnia [G47.00] 02/11/2011 Hyponatremia [E87.1] 02/11/2011 Chronic fatigue disorder [G93.32] 02/11/2011 Paroxysmal atrial fibrillation (HCC) [I48.0] Mitral valve prolapse [I34.1] Closed fracture of lumbar vertebra (HCC) [S32.0*10/18/2012 Dizziness and gi (more content not included)... [facility] 12-09-2024 Note HNO ID: [id number] Author: NANCY RANGEL MA Service: ? Author Type: Employee Relations Director Type: Progress Notes Filed: 12/09/2024 13:06 Note [...] orders: Medicare Annual Wellness Visit 02/10/2025 in [facility] with ROCHELLE HACKETT - 3 month follow up 05/11/2025 in [facility] with AL NICHOLE - Medicare wellness visit Navigation Signature: Nancy Rangel MA December 09, 2024 1:06 PM [facility] 12-09-2024 History of Presen t illness [...] orders: Medicare Annual Wellness [facility] - 3 month follow up 05/11/2025 in [facility] with AL NICHOLE - Medicare wellness visit Navigation Signature: Nancy Rangel MA December 09, 2024 1:06 PM documented in this encounter [facility] 12-09-2024 Note Patient Outreach (MOLLY TNAV) ROSANA MAKI ([id number]) 1940 F NFR Date Time Provider Department [...] orders: Medicare Annual Wellness [facility] - 3 month follow [facility] NICHOLE - Medicare wellness [...] Asymptomatic Postmenopausal Status (Age-Related* 10/28/2012 Osteoarth NOS-L/Leg [[id number]] Palpitations [R00.2] 02/23/2009 Osteoporosis [M81.0] 07/04/2009 03/13/2012 [...] Encounter Status:Closed by NANCY COLON on 12/09/24 [facility] 11-29-2024 Note HNO ID: [id number] Author: ANAYELI PETTIT RN Service: ? Author Type: Registered Nurse Type: Progress Notes Filed: 11/29/2024 14:37 Note Text: [facility] Care Path Telephonic Outreach Provider Action/FYI Patient [...] - Bi-Weekly Outreach (Recurring) Disposition Based on grease refining supervisor, the following disposition is advised: No action needed Anayeli Pettit RN November 29, 2024 2:34 PM [facility] 11-29-2024 History of Presen t illness Narrative Images from the original note were not included. [facility] Care Path Telephonic Outreach Provider Action/FYI Patient [...] - Bi-Weekly Outreach (Recurring) Disposition Based on grease refining supervisor, the following disposition is advised: No action needed Anayeli Pettit RN November 29, 2024 2:34 PM documented in this encounter [facility] 11-29-2024 Note Patient Outreach (AM [facility]) ROSANA MAKI ([id number]) 1940 F NFR Date Time Provider Department [...] - Bi-Weekly Outreach (Recurring) Disposition Based on grease refining supervisor, the following disposition is advised: No action [...] Asymptomatic Postmenopausal Status (Age-Related* 10/28/2012 Osteoarth NOS-L/Leg [[id number]] Palpitations [R00.2] 02/23/2009 Osteoporosis [M81.0] 07/04/2009 03/13/2012 Insomnia [G47.00] 02/11/2011 Hyponatremia [E87.1] 02/11/2011 Chronic fatigue disorder [G93.32] 02/11/2011 Paroxysmal atrial fibrillation (HCC) [I48.0] Mitral valve prolapse [I34.1] Closed fracture of lumbar vertebra (HCC) [S32.0*10/18/2012 Dizziness and giddiness [R4 (more content not included)... [facility] 11-16-2024 Note HNO ID: [id number] Author: ANAYELI PETTIT RN Service: ? Author [...] - Bi-Weekly Outreach (Recurring) Disposition Based on grease refining supervisor, the following disposition is advised: No action needed Anayeli Pettit RN November 16, 2024 12:02 PM [facility] 11-16-2024 History of Presen t illness Narrative Images from the original note were not included. [facility] Care Path Telephonic Outreach Provider Action/FYI Patient [...] - Bi-Weekly Outreach (Recurring) Disposition Based on grease refining supervisor, the following disposition is advised: No action needed Anayeli Pettit RN November 16, 2024 12:02 PM documented in this encounter [facility] 11-16-2024 Note Patient Outreach (AM [facility]) ROSANA MAKI ([id number]) 1940 F NFR Date Time Provider Department 11/16/24 ANAYELI PETTITG During your visit today, we recorded the following information about you: Anayeli Pettit RN 11/16/2024 12:08 PM Signed [facility] Care Path Telephonic Outreach Provider Action/FYI Patient [...] - Bi-Weekly Outreach (Recurring) Disposition Based on grease refining supervisor, the following disposition is advised: No action [...] Asymptomatic Postmenopausal Status (Age-Related* 10/28/2012 Osteoarth NOS-L/Leg [[id number]] Palpitations [R00.2] 02/23/2009 Osteoporosis [M81.0] 07/04/2009 03/13/2012 Insomnia [G47.00] 02/11/2011 Hyponatremia [E87.1] 02/11/2011 Chronic fatigue disorder [G93.32] 02/11/2011 Parox (more content not included)... [facility] 11-10-2024 Note HNO ID: [id number] Author: ?, ?, ? Service: ? Author Type: ? Type: Progress Notes Filed: 11/10/2024 11:19 Note Text: POPULATION HEALTH NAVIGATION OUTREACH Action/[facility] Support: Called pt to schedule an appt in Pain Management. Lvm for pt to call [phone] for scheduling. Any agent can assist. Reason for Outreach Care Gap/HCC or Scheduling Wellness Visits Care Gaps due: N/A Patient Contacted: Unable or unnecessary to reach patient: Left message Conductiv message sent Navigation Signature: Jeffrey Armstrong November 10, 2024 11:19 AM [facility] 11-10-2024 History of Presen t illness Narrative POPULATION HEALTH NAVIGATION OUTREACH Action/[facility] Support: Called pt to schedule an appt in Pain Management. Lvm for pt to call [phone] for scheduling. Any agent can assist. Reason for Outreach Care Gap/HCC or Scheduling Wellness Visits Care Gaps due: N/A Patient Contacted: Unable or unnecessary to reach patient: Left message [employer] sent Navigation Signature: Jeffrey Armstrong November 10, 2024 11:19 AM documented in this encounter [facility] 11-10-2024 Note Patient Outreach (NE TNAV) ROSANA MAKI ([id number]) 1940 F NFR Date Time Provider Department 11/10/24 NO PCP (HIST) SHABANA During your visit today, we recorded the following information about you: Jeffrey Armstrong 11/10/2024 11:19 AM Signed POPULATION HEALTH NAVIGATION OUTREACH Action/[facility] Support: Called pt to schedule an appt in Pain Management. Lvm for pt to call [phone] for scheduling. Any agent can assist. Reason for Outreach Care Gap/HCC or Scheduling Wellness Visits Care Gaps due: N/A Patient Contacted: Unable or unnecessary to reach patient: Left message Conductiv message sent Navigation Signature: Jeffrey Armstrong November [...] Asymptomatic Postmenopausal Status (Age-Related* 10/28/2012 Osteoarth NOS-L/Leg [[id number]] Palpitations [R00.2] 02/23/2009 Osteoporosis [M81.0] 07/04/2009 03/13/2012 [...] Encounter Status:Closed by JEFFREY ARMSTRONG on 11/10/24 [facility] 11-08-2024 Telephone encounter Note Faxed physical therapy order and face sheet to [facility] patient request Teri Araiza LPN November 08, 2024 10:36 AM [facility] 11-08-2024 Miscellaneous Notes Faxed physical therapy order and face sheet to [facility] per patient request Teri Araiza LPN November 08, 2024 10:36 AM documented in this encounter [facility] 11-08-2024 History of Presen t illness [...] helps her. This was started by her knife operator Dr. Cooley No problem-specific Assessment & Plan [...] Rochelle Hackett MD documented in this encounter [facility] 11-08-2024 Note HNO ID: [id number] Author: ROCHELLE HACKETT MD Service: ? Author [...] helps her. This was started by her knife operator Dr. Cooley No problem-specific Assessment AND Plan [...] hr tablet APIXABA (more content not included)... [facility] 11-07-2024 Telephone encounter Note Referral faxed to Dr Mancilla [facility] 11-07-2024 Miscellaneous Notes Referral faxed to Dr Mancilla Patient calling in asking if her information and pain management referral can be faxed over to [facility]. Please review. Vida Urena November 07, 2024 2:34 PM documented in this encounter [facility] 11-07-2024 Telephone encounter Note Patient calling in asking if her information and pain management referral can be faxed over to [facility]. Please review. Vida Urena November 07, 2024 2:34 PM [facility] 11-07-2024 Telephone encounter Note Spoke with pt and information listed below given. Pt verbalizes understanding. Pt has questions and will talk to provider tomorrow 11-08-[address] Devi Lowe LPN [facility] 11-07-2024 Miscellaneous Notes Spoke with pt [...] Al Nichole APRN.CNP documented in this encounter [facility] 11-07-2024 Telephone encounter Note Additional TC with no answer. Left VM to return call. LENORA Angel [facility] 11-07-2024 Telephone encounter Note T/C patient, call was lost. [facility] 11-07-2024 Telephone encounter Note Stable compression fracture. She needs to see pain management to see what procedures may be available to help with her pain. Thank you Al Nichole APRN.CNP [facility] 11-04-2024 Telephone encounter Note Prescription sent as requested. She is very sensitive to medication so I prescribed 1/2 a tablet to try. If she tolerates this and it isn't enough, she can try taking a whole tablet. Thank you Al Nichole APRN.CNP [facility] 11-04-2024 Miscellaneous Notes Prescription sent as [...] Please advise patient. documented in this encounter [facility] 11-04-2024 Telephone encounter Note Patient willing try Tramadol, please send to [facility]. [facility] 11-04-2024 Telephone encounter Note Still waiting on results. We could try tramadol which is low dose dose controlled pain pill but may be too strong for her. Does she want to try this? Take care Al Nichole APRN.CNP [facility] 11-03-2024 Telephone encounter Note Pt checking [...] nothing for her pain. Please advise patient. [facility] 11-02-2024 History of Presen t illness [...] PATIENT PRESENTS WITH AN IMPLANTABLE OR ATTACHED MECHANIC GENERAL OPERATIONAL TEST: No RADIOLOGY DEPARTMENT: General X-ray: Exam(s) Completed: Spine X-Ray(s): Thoracic and Lumbar AP / LAT / L5-S1 PERIPHERAL IV DATA: Not applicable SIGNED BY: Charlotte Lambert November 02, 2024 1:40 PM documented in this encounter [facility] 11-02-2024 Note HNO ID: [id number] Author: SANTIAGO RICHMOND Tech Service: ? Author [...] PATIENT PRESENTS WITH AN IMPLANTABLE OR ATTACHED MECHANIC GENERAL OPERATIONAL TEST: No RADIOLOGY DEPARTMENT: General X-ray: Exam(s) Completed: Spine X-Ray(s): Thoracic and Lumbar AP / LAT / L5-S1 PERIPHERAL IV DATA: Not applicable SIGNED BY: Charlotte Lambert November 02, 2024 1:40 PM [facility] 11-02-2024 Note HNO ID: [id number] Author: AL NICHOLE APRN.MEAT STOCK CLERK Service: ? Author Type: Nurse Practitioner Type: Progress Notes Filed: 11/02/2024 15:40 Note Text: CC: Patient presents with: Recheck: [facility] ER follow up, fall back pain HPI Rosana Maki is a 84 year old female who presents today for ER follow-up. Facility: [facility] ER Date of visit: 10/30/24 Reason for [...] stools metoprolol succ (more content not included)... [facility] 11-02-2024 History of Presen t illness Narrative CC: Patient presents with: Recheck: [facility] ER follow up, fall back pain HPI Rosana Maki is a 84 year old female who presents today for ER follow-up. Facility: [facility] ER Date of visit: 2/16/25 Reason for [...] Screening Discontinued DATA REVIEWED: Outside chart from [place] ER reviewed. ASSESSMENT/PLAN: 1. Fall, subsequent encounter [...] Al Nichole APRN.CNP documented in this encounter [facility] 11-01-2024 Note HNO ID: [id number] Author: ANAYELI PETTIT RN Service: ? Author [...] and a fall. Spouse took her to [place] ED. They did a CT scan due [...] - Bi-Weekly Outreach (Recurring) Disposition Based on grease refining supervisor, the following disposition is advised: No action needed Anayeli Pettit RN November 01, 2024 11:56 AM [facility] 11-01-2024 History of Presen t illness [...] and a fall. Spouse took her to [place] ED. They did a CT scan due [...] - Bi-Weekly Outreach (Recurring) Disposition Based on grease refining supervisor, the following disposition is advised: No action needed Anayeli Pettit RN November 01, 2024 11:56 AM documented in this encounter [facility] 11-01-2024 Note Patient Outreach (AM [facility]) ROSANA MAKI ([id number]) 1940 F NFR Date Time Provider Department [...] and a fall. Spouse took her to [place] ED. They did a CT scan due [...] - Bi-Weekly Outreach (Recurring) Disposition Based on grease refining supervisor, the following disposition is advised: No action [...] Asymptomatic Postmenopausal Status (Age-Related* 10/28/2012 Osteoarth NOS-L/Leg [[id number]] Palpitations [R00.2] 02/23/2009 Osteoporosis [M81.0] 07/04/2009 03/13/2012 Insomnia [G47.00] 02/11/2011 Hyponatremia [E87.1] 02/11/2011 Chronic fatigue disorder [G93.32] 02/11/2011 Paroxysmal atrial fibrillation (HCC) [I48.0] Mitral valve prolapse [I34.1] Closed fracture of lumbar vertebra (HCC) [S32.0*10/18/2012 Dizziness and giddiness [R42] 06/ (more content not included)... [facility] 10-17-2024 Note HNO ID: [id number] Author: ANAYELI PETTIT RN Service: ? Author [...] Contact Your Physician Team Disposition Based on grease refining supervisor, the following disposition is advised: No action needed Anayeli Pettit RN October 17, 2024 1:52 PM [facility] 10-17-2024 History of Presen t illness [...] Contact Your Physician Team Disposition Based on grease refining supervisor, the following disposition is advised: No action needed Anayeli Pettit RN October 17, 2024 1:52 PM documented in this encounter [facility] 10-17-2024 Note Patient Outreach (AM [facility]) ROSANA MAKI ([id number]) 1940 F NFR Date Time Provider Department [...] Contact Your Physician Team Disposition Based on grease refining supervisor, the following disposition is advised: No action [...] thyroid/hormones/adrenals/sleep/ energy/toxins/muscles/constipati on/asthma (more content not included)... [facility] 10-11-2024 Note HNO ID: [id number] Author: DIPIKA MOHR MA Service: ? Author Type: Employee Relations Director Type: Progress Notes Filed: 10/11/2024 12:59 Note Text: POPULATION HEALTH NAVIGATION OUTREACH Action/FYI Patient returned call and follow up scheduled. Patient states she had flu shot elsewhere. Reason for Outreach Returned Call/MyChart Patient Contacted: Spoke to patient/parent/or legal guardian Patient identified by name and date of : Yes Returned call/MyChart actions taken: Patient scheduled/pended orders: Follow-up Appointment 11/08/2024 in [facility] with ROCHELLE HACKETT - Follow up, Address and close HCC gaps Navigation Signature: Dipika Mohr MA October 11, 2024 12:58 PM [facility] 10-11-2024 History of Presen t illness Narrative POPULATION HEALTH NAVIGATION OUTREACH Action/FYI Patient returned call and follow up scheduled. Patient states she had flu shot elsewhere. Reason for Outreach Returned Call/MyChart Patient Contacted: Spoke to patient/parent/or legal guardian Patient identified by name and date of : Yes Returned call/MyChart actions taken: Patient scheduled/pended orders: Follow-up Appointment 11/08/2024 in [facility] with ROCHELLE HACKETT - Follow [...] or unnecessary to reach patient: Left message Conductiv message sent HCC related Navigation Signature: Dipika Mohr MA October 11, 2024 9:47 AM documented in this encounter [facility] 10-11-2024 Note HNO ID: [id number] Author: DIPIKA MOHR MA Service: ? Author Type: Employee Relations Director Type: Progress Notes Filed: 10/11/2024 09:47 Note [...] or unnecessary to reach patient: Left message Conductiv message sent HCC related Navigation Signature: Dipika Mohr MA October 11, 2024 9:47 AM [facility] 10-11-2024 Note Patient Outreach (NE TNAV) ROSANA MAKI ([id number]) 1940 F NFR Date Time Provider Department [...] Patient scheduled/pended orders: Follow-up Appointment 11/08/2024 in [facility] with ROCHELLE HACKETT - Follow up, [...] Asymptomatic Postmenopausal Status (Age-Related* 10/28/2012 Osteoarth NOS-L/Leg [[id number]] Palpitations [R00.2] 02/23/2009 Osteoporosis [M81.0] 07/04/2009 03/13/2012 [...] malnutrition, unspecified sever*05/ (more content not included)... [facility] 09-29-2024 History of Presen t illness Narrative I contacted patient on 09/28/2024 4:47 PM. Answers were put into visit during pre-charting. Will the patient be in the [facility] at the time of the telehealth visit? Yes If no, notify your manager retail & clinical manager retail of potential issue Confirm mode for the visit is [employer] Video visit: Cristal Studiost - confirm patients knows to login 15 [...] Only I completed the flowsheets for the [place] Sleepines Scale and FOSQ. Pt completed I have had the pleasure of seeing Ms. Rosana Maki for evaluation at the [facility] clinic today. . Impression: [...] study. The study will be done at [facility]. We discussed treatment options and she is willing to consider CPAP treatment. If the study is positive for obstructive sleep apnea, we will therefore proceed with CPAP therapy. We discussed good sleep hygiene habits. She should never drive if drowsy and should rod puller and coiler at a safe place if she becomes drowsy while driving. A handout on drowsy driving tips was given to the patient. Follow up in clinic after the sleep studies. At that time we will discuss her study results and tolerance of therapy if indicated. HPI: Subjective Chief complaint: hypersomnia. Previous sleep study: Yes Positive airway pressure (PAP) device use: No PSG at [facility]: [facility] [place] [address] ; PSG Study Report Name: ROSANA MAKI Date of Study: 07/13/2024 CC#: [id number] Age: 84 (: 1940) ESS: 09/06 Neck [...] Florinef Sleep procedure: PSG 4 or more [facility] ([id number]) Procedure: The study was attended continuously by a apparatus engineering technologist. The monitored parameters included: left [...] signs and symptoms. INTERPRETING PHYSICIAN: Judy White MD,[facility] She goes to bed at 2300 on [...] Laterality: N/A; Surgeon: Zak Jara MD; Location: [facility] EP MYOCARDIAL PERFUSION NM 03/04/13 [facility] CARDIAC CATH (OUTSIDE) 09/17/12 [facility] ECHOCARDIOGRAM (OUTSIDE) 09/15/12 [facility] Allergies Allergen Reactions Adhesive [*Adhesive Tape] [...] 3 doses are missed, contact the prescribing knife operator as soon as possible. esomeprazole 40 MG [...] Laboratory and others: Previous medical records from [facility] were reviewed. Serum Chemistry: Lab Results Component [...] (Final) Narrative Patient: Rosana Maki Med Rec#: [id number] : 1940 Date: 08/20/2013 Age: 73 Height: 168 cm / 65.5 in Weight: 53 kg / 116.6 lbs Sex: F BSA: 1.59 Room#: [facility] Type: Inpatient Loc: [facility] Lab Fellow (int): Nakul Shah MD Referring: VANDANA MILES A Reading: Mal Palacios M.D. Intensivist: Mai Mccarthy BSDMS, RDCS Rhythm: NSR HR: [...] the inferior vena cava dimension. Diagnosis codes: 22900 TTE, followup or limited study. 423.8 Pericardial effusion other specified [( )]. (R) Diagnostic Review: ESS 10 FOSQ 14 KOBE 17 IRLS MVAP 0.144 [place] Sleepiness Score (ESS) > 10 indicates daytime [...] visit: 30 minutes documented in this encounter [facility] 09-29-2024 Instructions Maya Sal MD - 09/29/2024 11:00 AM EST Images from the original note were not included. Obstructive Sleep Apnea This is a link to an educational video about Obstructive Sleep Apnea: https://www.[employer].com/watch?v= 6bqTOfwvWhk What are the risk factors for Obstructive Sleep Apnea (MIRANDA)? Obesity Snoring Daytime sleepiness Increasing age Male gender Taking sedating medications Alcohol use Hypertension Stroke Diabetes Smoking What is MIRANDA? People with MIRANDA experience recurrent episodes during [...] or eliminating sleep apnea. Additional Information The [facility] Sleep Medicine Program (www.medicalcenter.[facility]/go/sl eepmedicine) [place] Academy of Sleep Medicine (www.aasmnet.org) National Sleep Foundation (www.sleepfoundation.org) [place] Sleep Apnea Association (www.sleepapnea.org) National Heart, Lung, and Blood [place] (www.nhlbi.nih.gov) UptoDate (www.uptodate.com/patients) Drowsy Driving Tips These suggestions will help prevent you from the risk of drowsy driving. 1. If you feel tired or drowsy do not drive. Sleepiness is a major cause of motor vehicle accidents and accounts for 40% of all fatal crashes reported on the [facility]. No matter how much you think [...] hours of driving. 8. Drive with a air turning machine feeder. Share the driving. Relax in the back seat until it is your time to share the driving again. YOU CAN FIND MORE INFORMATION BY VISITING OUR WEBPAGE: www.medicalcenter.[facility]/go/sle epmedicine documented in this encounter [facility] 09-09-2024 Evaluation note Diagnosis Onset Date [...] Educational circumstance inactive September 20, 2024 1:30pm [facility] Work Phone: [phone]) 840-693811-14-2024 Telephone encounter Note* Telephone Encounter - Teri Araiza LPN - 07/28/2024 8:46 AM EST Sleep medicine order, TAYLOR, Facesheet, faxed to [facility] sleep [place] per patient request. Teri Araiza LPN July 28, 2024 8:47 AM [facility]11-14-2024 Miscellaneous Notes* Telephone Encounter - Teri Araiza LPN - 07/28/2024 8:46 AM EST Sleep medicine order, TAYLOR, Facesheet, faxed to [facility] sleep center per patient request. Teri Araiza [...] medicine doctor. RegardsRochelle MD documented in this encounterMarietta [facility] Hospital11-07-2024 Telephone encounter Note * Telephone Encounter - Rochelle Hackett MD - 07/21/2024 3:35 PM EST Please let patient know that she has upper respiratory resistance syndrome It is a little different from sleep apnea but similar in many ways and it is disturbing her sleep I would like her to see a sleep medicine doctor. RegardsRochelle MD [facility]10-31-2024 NoteHNO ID: [id number] Author: ?, ?, ? Service: ? Author Type: ? Type: Progress Notes Filed: 07/14/2024 03:02 Note Text: Sleep Study Check-In Documentation Date: July 14, 2024 Name: Rosana Maki Patient was accompanied by Spouse. Location: [place] Latex allergy: No Tape allergy: Yes Current medications were reviewed with the patient:Yes Sleep aid taken by patient for the sleep study: [place] of sleep aid: Not Applicable Procedure was explained to the patient and all questions were answered. PAP treatment discussed and shown to patient: Yes Knowledge Program (KP): KP was not completed in [facility] by patient and accepted Study type: Polysomnogram Adverse Event: No (If yes create a new abstract) Comments: Patient was advised to follow up with their ordering provider regarding test results [facility] History of Present illness Narrative* Bibi Marino - 07/14/2024 3:01 AM EDT Sleep Study Check-In Documentation Date: July 14, 2024 Name: Rosana Maki Patient was accompanied by Spouse. Location: [place] Latex allergy: No Tape allergy: Yes Current medications were reviewed with the patient:Yes Sleep aid taken by patient for the sleep study: [place] of sleep aid: Not Applicable Procedure was explained to the patient and all questions were answered. PAP treatment discussed and shown to patient: Yes Knowledge Program (KP): KP was not completed in [facility] by patient and accepted Study type: Polysomnogram [...] 90 days Ordered Auth. provider POLYSOMNOGRAM (PSG) [[id number]] 05/18/24 Rochelle Hackett MD Assoc. diagnoses: Sleep [...] (PSG) from Rochelle Byrd, , a B. [facility] System Staff. Visit prep complete. Comments :Yes, She has one sleep study many years ago The sleep study is scheduled for 07/05. Insurance: Payor: MEDICARE / Plan: MEDICARE A AND B / Product Type: Medicare / Payer/Plan Subscr Sex Relation Sub. Ins. ID Effective Group Num 1. [place]ARE - [place]* ROSANA MAKI 1940 Female Self [id number] 01/12/07 [address] [employer]* ROSANA MAKI 1940 Female Self [id number] 09/14/21 [address] Kristina Phillip documented in this encounterMarietta [facility]10-15-2024 Instructions* Patient Instructions* Sol Harvey - 06/28/2024 9:09 AM EDT Your toe looks great Continue to monitor. No longer require a band aide If you have any issues, contact the office. documented in this encounterMarietta [facility] Hospital10-15-2024 NoteHNO ID: [id number] Author: SOL HARVEY, ? Service: ? Author [...] No redness or drainag (more content not included)...[facility]10-15-2024 History of Present illness Narrative* Sol [...] outcome Sol Harvey DPM documented in this encounterMarietta [facility] Hospital09-30-2024 NoteHNO ID: [id number] Author: BRENDON JUAREZ III, PhD Service: ? Author Type: Physician Type: Progress Notes Filed: 07/14/2024 03:02 Note Text: June 13, 2024 Standing PSG Orders signed in the last 90 days None Future PSG Orders signed in the last 90 days Ordered Auth. provider POLYSOMNOGRAM (PSG) [[id number]] 05/18/24 Rochelle Hackett MD Assoc. diagnoses: Sleep [...] plan. Brendon Juarez III, PhD 4:43 PM, 06/13/2024[facility]09-27-2024 NoteHNO ID: [id number] Author: ?, ?, ? Service: ? Author Type: ? Type: Progress Notes Filed: 07/14/2024 03:02 Note Text: June 10, 2024 An order has been received for Polysomnogram (PSG) from Rochelle Byrd a B. [facility] Staff. Visit prep complete. Comments :Yes, She has one sleep study many years ago The sleep study is scheduled for 07/05. Insurance: Payor: MEDICARE / Plan: MEDICARE A AND B / Product Type: Medicare / Payer/Plan Subscr Sex Relation Sub. Ins. ID Effective Group Num 1. [place]ICARE - [place]* ROSANA MAKI 1940 Female Self [id number] 01/12/07 [address] [facility]* ROSANA MAKI 1940 Female Self [id number] 09/14/21 [address] [facility]09-19-2024 NoteHNO ID: [id number] Author: CAROLINE DAY LPN Service: ? Author [...] of Care Visit completed when applicable. [facility]IE MckeonUniversity [facility]als [facility]09-19-2024 History of Present illness Narrative* Caroline aDy LPN - 06/02/2024 3:49 PM EDT UN[facility]ERSAL [...] growth present to digits Non-Invasive Vascular Laboratory [facility] Lower Extremity Arterial Physiology Study Bilateral/Complete Date [...] rest. Technologist: Deanna Womack RVT [facility] Ordering physician: SOL HARVEY Interpreting physician: SCOTTIE [...] well. Sol Harvey DPM Podiatry [address] [facility] [address] Dept: [phone] Dept * Caroline Day LPN - 06/02/2024 3:06 PM EDT AMB ROOMING INTAKE FLOWSHEET DATA Pain Pain Level: 3 Pain Location: Toe Description: Pressure, Tenderness Duration Units: Minutes Frequency: Intermittent Intervention/Comfort measure: Reposition Patient presents with: Left Great Toe - Established Patient, Pain, Ingrown Toenail Right Great Toe - Established Patient, Pain, Ingrown Toenail Caroline Day LPN documented in this encounterMarietta Memorial Hospital09-19-2024 Instructions* Patient Instructions* Sol Harvey - [...] as well if you have any questions/concerns [phone], ask for Podiatry Nurse documented in this encounterMarietta Memorial Hospital09-19-2024 NoteHNO ID: [id number] Author: SOL HARVEY, ? Service: ? Author [...] PFRMD 07/23/2004 Sigmoidoscopy FA (more content not included)...[facility]09-19-2024 NoteHNO ID: [id number] Author: CAROLINE DAY LPN Service: ? Author Type: LICENSED NURSE Type: Progress Notes Filed: 06/05/2024 13:54 Note Text: AMB ROOMING INTAKE FLOWSHEET DATA Pain Pain Level: 3 Pain Location: Toe Description: Pressure, Tenderness Duration Units: Minutes Frequency: Intermittent Intervention/Comfort measure: Reposition Patient presents with: Left Great Toe - Established Patient, Pain, Ingrown Toenail Right Great Toe - Established Patient, Pain, Ingrown Toenail [facility]IE MckeonUniversity [facility]als [facility]09-06-2024 Telephone encounter Note* Telephone Encounter - Teri Araiza LPN - 05/20/2024 4:16 PM EDT Updated patient via MyChart Teri Araiza LPN May 20, 2024 4:16 PM [facility]09-06-2024 Miscellaneous Notes* Telephone Encounter - Teri Araiza LPN - 05/20/2024 4:16 PM EDT Updated patient via MyChart Teri Araiza LPN May 20, 2024 4:16 PM * Telephone Encounter - Teri Araiza LPN - 05/20/2024 4:15 PM EDT ----- Message from Rochelle Hackett MD sent at 05/19/2024 9:27 AM EDT ----- Magnesium levels are normal Regards, Rochelle Hackett MD documented in this encounterMarietta Memorial Hospital09-06-2024 Telephone encounter Note * Telephone Encounter - Teri Araiza LPN - 05/20/2024 4:15 PM EDT ----- Message from Rochelle Hackett MD sent at 05/19/2024 9:27 AM EDT ----- Magnesium levels are normal RegardsRochelle MD [facility]09-04-2024 Instructions* Patient Instructions* Rochelle Hackett MD - 05/18/2024 11:14 AM EDT Please get the sleep study Get a system trainer to help with strengthening exercises, and try to get 30 mins of exercise daily Get lab work Increase protein intake documented in this encounterMarietta Memorial Hospital09-04-2024 NoteHNO ID: [id number] Author: ROCHELLE HACKETT MD Service: ? Author Type: Physician Type: Progress Notes Filed: 05/18/2024 13:04 Note Text: [facility] Initial Consult Rosana Maki [...] secure location? Yes Social History: Primary language: Lebanese Marital Status: Living situation: Home w/ Spouse Socially engaged? (participates in activities such as clubs, moravian, community center, sports, games, visiting friends/relatives, etc?): YES moravian, they go there 2 times a week. They meet with friends a lot Caregiver [place] and Stress Are your feeling overwhelmed? NO [...] of hemorrhage No date: Dysphagia 08/01/2010: Dysphagia, unspecified(327.20) No date: Esophageal reflux Comment: rare symptoms, had more pain on Prevacid than off it No date: Esophagitis, unspecified 02/11/2011: Fatigue 04/20/2008: Inflamed seborrheic keratosis 10/07/2010: Ingrown toenail No date: Irritable bowel syndrome Comment: gets constipated easily, also lactose intolerant (more content not included)...[facility]09-04-2024 History of Present illness Narrative* Rochelle Hackett MD - 05/18/2024 10:22 AM EDT [facility] Initial Consult Rosana Maki [...] secure location? Yes Social History: Primary language: Lebanese Marital Status: Living situation: Home w/ Spouse Socially engaged? (participates in activities such as clubs, moravian, community center, sports, games, visiting friends/relatives, etc?): YES moravian, they go there 2 times a week. They meet with friends a lot Caregiver [place] and Stress Are your feeling overwhelmed? NO [...] , Taking? Yes, Authorizing Provider Sara Rangel APRN.SPACE ENGINEER Medication famotidine (PEPCID) 20 mg tablet, Sig take 1 tablet by mouth at bedtime if needed, StartDate 09/08/23, End Date , Taking? Yes, Authorizing Provider Kalli Montes APRN.MEAT STOCK CLERK Medication BENEFIBER, GUAR GUM, ORAL, Sig Take 2 teaspoonsful by mouth two times a day as needed., Start Date , End Date , Taking? Yes, Authorizing Provider Provider, C[facility] Medication meclizine (ANTIVERT) 25 mg tab, Sig Take 1 tablet by mouth every 6 hours as needed (dizziness)., Start Date 05/08/23, End Date , Taking? Yes, Authorizing Provider Al Nichole APRN.MEAT STOCK CLERK Medication fludrocortisone (FLORINEF) 0.1 mg tablet, Sig Taking 3 times a week Patient taking differently: Taking 1/2 a tablet 3 times a week, Start Date 11/13/21, End Date , Taking? Yes, Authorizing Provider Al Nichole APRN.MEAT STOCK CLERK Medication Magnesium Glycinate 120mg 3 at night Stress, blood sugar, thyroid/hormones/adrenals/sleep/energy/toxins/muscles/constipation/asthma, Sig Work up to 3 capsules with meals at night - can cause loose stools, Start Date 03/21/21, End Date , Taking? Yes, Authorizing Provider Pamella Colby APRN.MEAT STOCK CLERK Medication metoprolol succinate ER (TOPROL XL) 25 [...] Vision No vision problems reported Follows with residential mortgage manager:NO Hearing - Hearing aid : Hearing impairment, [...] GDS: Not done today Labs: Reviewed in [facility], vitamin B12 was normal Brain Imaging: November 2023 reviewed in [facility], remarkable for mild generalized volume loss in [...] willing to get back with a personal companion and also was willing to increase her protein intake Plan Get on a exercise program with a system trainer to help with strength and training [...] most: Has living will healthcare power of commercial attorney. REFERRALS AND RECOMMENDATIONS 1. Discussed the cognitive benefits of memory exercises and reviewed examples 2. Discussed the cognitive benefits of physical exercise and socialization I spent more than 60 minutes with the patient on full evaluation Rochelle Hackett MD [facility] documented in this encounterMarietta [facility] Hospital08-20-2024 NotePatient Outreach (INTMMN) ROSANA MAKI ([id number]) 1940 F NFR Date Time Provider Department [...] Diagnosis:Medication management [Z79.899] Order(s):MAGNESIUM [SQMG1] Order #: [id number] FUTURE Prescriptions as of 05/06/2024 - zoledronic [...] Asymptomatic Postmenopausal Status (Age-Related* 10/28/2012 Osteoarth NOS-L/Leg [PBX6499] Palpitations [R00.2] 02/23/2009 Osteoporosis [M81.0] 07/04/2009 03/13/2012 [...] sever*01/14/2023 Encounter Status:Closed by PAUL HORNUSER on 05/06/24[facility] 04-22-2024 NoteHNO ID: [id number] Author: CAROLINE DAY LPN Service: ? Author Type: LICENSED NURSE Type: Progress Notes Filed: 04/22/2024 14:11 Note Text: Per Rosana Roman was provided with powerstep gel inserts, size 8.5, and instructed/educated in its application, wear, and care. All questions were answered, and patient was able to demonstrate competence with the necessary skills to utilize the above equipment. K[facility]IE MckeonUniversity Hospitals [facility]08-09-2024 History of Present illness Narrative* Caroline Day [...] (HCC) 04/25/2008: Chondrocalcinosis, cause unspecified, involving lower leg(642.36) Comment: CPPD right leg (on xray) - [...] pulses are palpable b/l. Non-Invasive Vascular Laboratory [facility] Lower Extremity Arterial Physiology Study Bilateral/Complete Date [...] rest. Technologist: Deanna Womack RVT, [facility] Ordering physician: SOL HARVEY Interpreting physician: SCOTTIE [...] Problem Caroline Day LPN documented in this encounterMarietta Memorial Hospital08-09-2024 NoteHNO ID: [id number] Author: SOL HARVEY, ? Service: ? Author [...] (HCC) 04/25/2008: Chondrocalcinosis, cause unspecified, involving lower leg(472.36) Comment: CPPD right leg (on xray) - [...] EGD TRANSORAL BIOPSY SINGL (more content not included)...[facility]08-09-2024 NoteHNO ID: [id number] Author: CAROLINE DAY LPN Service: ? Author [...] Patient, Pain, Ingrown Toenail, Gait Problem [facility]IE MckeonUniversity [facility]als [facility]07-31-2024 Telephone encounter Note* Telephone Encounter - Al Nichole APRN.CNP - 04/13/2024 10:16 AM EDT Agree with recommendation. Consult order placed. Thank you Al Nichole APRN.CNP [facility]07-31-2024 Miscellaneous Notes* Telephone Encounter - Al Nichole APRN.CNP - 04/13/2024 10:16 AM EDT Agree with recommendation. Consult order placed. Thank you Al Nichole APRN.CNP * Telephone Encounter - Jane Harrell MA - 04/12/2024 9:47 AM EDT Consult to geriatrics pended for mild cognitive impairment. Please file if agreeable. Jane Harrell MA documented in this encounterMarietta Memorial Hospital07-30-2024 Telephone encounter Note * Telephone Encounter - Jane Harrell MA - 04/12/2024 9:47 AM EDT Consult to geriatrics pended for mild cognitive impairment. Please file if agreeable. Jane Harrell MA [facility]07-30-2024 NoteHNO ID: [id number] Author: ROCHELLE HACKETT MD Service: ? Author [...] are reviewed an (more content not included)... [facility]07-30-2024 History of Present illness Narrative* Rochelle [...] evaluated Rochelle Hackett MD documented in this encounterMarietta Memorial Hospital05-11-2024 Discharge summary Author Vinh Colon [facility] January 23, 2024 4:08pm Note Date/Time January 23, 2024 2:27p [facility] Medical Records Department [address] [place] [address] Emergency Department Summary 01/23/24 MR#: [id number] Acct: [id number] Name: ROSANA MAKI Rep #:[id number] : [...] Prior similar symptoms: Yes Recent Illness[facility] Medical History (Updated 01/23/24 @ 16:00 by [...] Moving all 4 extremities. Nontenderno edema. Normal photographer finish strength. Neurologically she is awake alert no [...] % (Auto) 63.4 Lymph % (Auto) 30.0 [place] % (Auto) 5.2 Eos % (Auto) 0.4 [...] right bundle branch block. First-degree AV block FL interval 234. Discharge Plan Triage Chief Complaint: [...] your Primary Care Provider. Call [facility] ([phone]) or report to the closest Emergency Room. Call 911 if necessary. 01/23/24 1608 <Electronically signed by Vinh Colon MD> Cosigner Signature (if applicable): CC: Dr. Rochelle Hackett MD ~ Signed [facility] Work Phone: 1(680) 903-371004-19-2024 Discharge summary Author Pito Davis [facility] January 01, 2024 10:02am Note Date/Time January 01, 2024 10: 02am [facility] Physical Therapy [facility] [address] [place] [address]. [address] [place] [address] / REHABILITATION SERVICES DISCHARGE SUMMARY MR#: [id number] Acct: [id number] Name: ROSANA MAKI Rep #: [id number] : 1940 83 From: Pito Davis PT, ATC Referring Dr.: Dr. Erick Blanca MD Status: REG RCR Insurance: MEDICARE PART A B [facility] Discharge Summary D/C summary: It has [...] Progress: Goal Met Plan Plan: [facility]charge to [facility] D/C Information d/c sentence: If there are questions or concerns regarding this patient's physical therapy, please feel free to call me at [phone]. Thank you for the referral of thispatient. Sincerely, Pito Davis, PT, ATC Balance/Gait/Functional tests Balance/Special Test Scores Functional Gait Assessment Score: 24 % Disability: 20.0000 Lower Extremity Functional Score: 49 Improvement % Improvement: 70 <Electronically signed by Pito Davis PT, ATC> 01/01/24 1002 CC: Dr. Rochelle Hackett MD; Dr. Erick Blanca MD ~ [facility] Signed [facility] Work Phone: 1(248) 955-193204-02-2024 History of Present illness Narrative* Juan Carlos Sara, JEAN-CLAUDE.SPACE ENGINEER - 12/15/2023 2:00 PM EDT SUBJECTIVE: There [...] (Hcc) Siadh (Syndrome of Inappropriate Adh Production) ([facility]) Chronic Pain of Right Knee Mild Cognitive Disorder Protein-Calorie Malnutrition, Unspecified Severity ([facility]) PCP: Rochelle Hackett MD Cardiology: [facility] Oncology: [facility] oncology Neurology: Dr. Blanca She was seen by Irish Warren CNP [...] neurologist regarding symptoms. She was seen at [facility] for acute hyponatremia intractable nausea and vomiting on November 21, 2023. Presents for ER follow-up visit. She was seen at [facility] December 08, 2023 for UTI.She presented [...] pelvic floor aches evaluation and exercises at [facility]. 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 Sara Rangel APRN.CNS. Medical Decision Making: Problems: Moderate: Acute illness with systemic symptoms Data: Unique source(s) for external note(s) reviewed: 1 Unique test result(s) reviewed: 3+ Risk: Moderate: Drug management Medical Decision Making Level: 4 - Moderate documented in this encounterMarietta Memorial Hospital03-10-2024 Discharge summary Author Marty Bassett [facility] November 22, 2023 2:45pm Note Date/Time November 22, 2023 12: 03pm [facility] Medical Records Department [address] [place] [address] Discharge Summary 11/22/23 1202 MR#: [id number] Acct: [id number] Name: ROSANA MAKI Rep #:[id number] : 1940 83 From: Marty meraz DO PCP: Dr. Rochelle Hackett MD Status:ADM I NO Location: [address] Providers Date of Admission: 11/21/23 Date [...] is an 83-year-old female who presented with [facility] ED on 11/21/2023 with nausea and vomiting [...] % (Auto) 60.6, Lymph % (Auto) 32.0, [place]% (Auto) 6.2, Eos % (Auto) 0.4, Baso [...] Clarity Clear, Urine pH 8.0, Ur Specific Dante 1.015, Urine Protein 15 H, Urine Glucose [...] % (Auto) 61.5, Lymph % (Auto) 27.0, [place] % (Auto) 10.6 H, Eos % (Auto) [...] Self Care Charges/Coding Visit Charges Inpatient E&M: 19660 Disch Hosp >30min 11/22/23 1445 <Electronically signed by Marty Bassett DO> Cosigner Signature (if applicable): CC: Dr. Marty Bassett DO; Dr. Rochelle Hackett MD~ Signed [facility] Work Phone: 1(946) 958-225003-10-2024 Discharge summary Author Marty Bassett [facility] November 22, 2023 1:27pm Note Date/Time November 22, 2023 12: 03pm [facility] Medical Records Department [address] [place] [address] Instructions for Home/Discharge Instructions 11/22/23 1202 MR#: [id number] Acct: [id number] Name: ROSANA MAKI Rep #:[id number] : [...] Primary Care Provider: Rochelle Hackett Consulting Providers: Micehlle Hunt Discharge Orders/Prescriptions Prescriptions: Continued (DME) Bilaterl [...] Dr. Michelle Hunt MD; Dr. Rochelle Hackett MD ~ Signed [facility] Work Phone: [phone] Hospital Discharge instructions Additional Instructions Date of Discharge: 11/22/23[facility] Work Phone: [phone] Discharge summary Author [facility] November 22, 2023 12:07am Note Date/Time November 21, 2023 9:14 pm [facility] Medical Records Department [address] [place] [address] Emergency Department Summary 11/21/23 MR#: [id number] Acct: [id number] Name: ROSANA MAKI Rep #:[id number] : 1940 83 From: Viet Ortez DO PCP: Dr. Rochelle Hackett MD Status:ADM I NO Location: [place] [address]-1 HPI History of Present Illness Chief Complaint: [...] of a flutter. She denies sick contacts. [facility] Medical History (Updated 11/21/23 @ 23:23 [...] % (Auto) 60.6 Lymph % (Auto) 32.0 [place] % (Auto) 6.2 Eos % (Auto) 0.4 [...] Clarity Clear Urine pH 8.0 Ur Specific Dante 1.015 Urine Protein 15 H Urine Glucose [...] Acute hyponatremia Disposition Disposition: Acute Care Hospital [facility] What to do if you have Problems For any increased pain, shortness of breath, bleeding, nausea or vomiting, chestpain, or any unexpected problems, contact your Primary Care Provider. Call [facility] ([phone]) or report to the closest Emergency Room. Call 911 if necessary. 11/22/236 <Electronically signed by Viet Ortez DO> Cosigner Signature (if applicable): CC: Dr. Rochelle Hackett MD ~ Signed [facility] Work Phone: 1(875) 828-960203-10-2024 History and physical note Author Michelle Hunt [facility] November 21, 2023 11:25pm Note Date/Time November 21, 2023 11:1 1pm [facility] Medical Records Department [address] [place] [address] H&P Exam - Hospitalist 11/21/232306 MR#: [id number] Acct: [id number] Name: ROSANA MAKI Rep #:[id number] : [...] CA, Hx TIA who presents to the [facility] ED on 11/21/23 with history of onset [...] wellas Reglan 10 mg IV x 1. [facility] Medical History (Updated 11/21/23 @ 23:23 [...] % (Auto) 60.6, Lymph % (Auto) 32.0, [place]% (Auto) 6.2, Eos % (Auto) 0.4, Baso [...] Clarity Clear, Urine pH 8.0, Ur Specific Dante 1.015, Urine Protein 15 H, Urine Glucose [...] CA, Hx TIA who presents to the [facility] ED on 11/21/23 with history of onset [...] left breast: Patient (T1b, N0,M0) ER positive FL positive HER-2 negative by FISH, G1 s/p [...] 16 minutes. Charges/Coding Visit Charges Inpatient E&M: 93861 Init Hosp L2 Procedures Hospitalists Procedures: 56715 Advncd Care Plan 30 Min 11/21/23 3699 <Electronically signed by Michelle Hunt MD> Cosigner Signature (if applicable): CC: Dr. Michelle Hunt MD; Dr. Rochelle Hackett MD~ Signed [facility] Work Phone: 1(740) 790-122203-09-2024 Discharge summary Author Viet Ortez [facility] November 22, 2023 12:07am Note Date/Time November 21, 2023 9:14 pm [facility] Medical Records Department [address] [facility] [place] [address] Emergency Department Summary 11/21/23 MR#: [id number] Acct: [id number] Name: ROSANA MAKI Rep #:[id number] : 1940 83 From: Viet Ortez DO PCP: Dr. Rochelle Hackett MD Status:ADM I NO Location: [place] [address] HPI History of Present Illness Chief Complaint: [...] of a flutter. She denies sick contacts. [facility] Medical History (Updated 11/21/23 @ 23:23 [...] % (Auto) 60.6 Lymph % (Auto) 32.0 [place] % (Auto) 6.2 Eos % (Auto) 0.4 [...] Clarity Clear Urine pH 8.0 Ur Specific Dante 1.015 Urine Protein 15 H Urine Glucose [...] Acute hyponatremia Disposition Disposition: Acute Care Hospital [facility] What to do if you have Problems For any increased pain, shortness of breath, bleeding, nausea or vomiting, chestpain, or any unexpected problems, contact your Primary Care Provider. Call [facility] ([phone]) or report to the closest Emergency Room. Call 911 if necessary. 11/22/23 0007 <Electronically signed by Viet Ortez DO> Cosigner Signature (if applicable): CC: Dr. Rochelle Hackett MD ~ Signed [facility] Work Phone: [phone]) 431-688603-05-2024 History of Present illness Narrative* Kelly Balderrama [...] PATIENT PRESENTS WITH AN IMPLANTABLE OR ATTACHED MECHANIC GENERAL OPERATIONAL TEST: No RADIOLOGY DEPARTMENT: CT; Exam(s) Completed: Brain PERIPHERAL IV DATA: Not applicable SIGNED BY: RT Sara(R) November 17, 2023 3:01 PM documented in this encounterMarietta Memorial Hospital02-19-2024 History of Present illness Narrative* Irish Warren APRN.MEAT STOCK CLERK - 11/02/2023 3:21 PM EST SUBJECTIVE Rosana [...] does see Dr. Blanca with neurology with [facility]. She is wondering if she is having [...] (A priority) Comment: No anticoagulation. (2013: CHADS2=0. IYB5XK2-TVQb=5) On eliquis currently. She has no trouble [...] Prolapse (C priority) Protein-Calorie Malnutrition, Unspecified Severity ([facility]) - 01/14/2023 Mild Cognitive Disorder - 11/27/2020 Chronic Pain of Right Knee - 10/06/2018 Siadh (Syndrome of Inappropriate Adh Production) ([facility]) - 03/09/2018 Comment: Dx: 2013 she is on salt tablets and she has to limit her water content to 64 units a day. 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) ([facility]) - 09/08/2017 Anxiety and Depression - 02/05/2017 [...] appointment.. Irish Warren APRN-NIKO documented in this encounterMarietta Memorial Hospital02-19-2024 Miscellaneous Notes* Telephone Encounter - Grace [...] mins. Spoke with Mala. documented in this encounterMarietta Memorial Hospital02-16-2024 History of Present illness Narrative* Carlos Sheth MD - 10/30/2023 2:09 PM EST HISTORY AND PHYSICAL Rosana Maki 1940 REFERRING PHYSICIAN: Tomeka Ascencio, MEAT STOCK CLERK [address] [place] [address] CHIEF COMPLAINT: No chief complaint on file. [...] single focus 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 Resection [...] entered by the nurse and reviewed by pa Nursing Notes: Taryn Altamirano RN 10/30/2023 2:15 [...] Carlos Sheth III, MD documented in this encounterMarietta Memorial Hospital02-16-2024 Nurse Note* Taryn Altamirano RN - [...] 2018 Taryn Altamirano RN documented in this encounterMarietta Memorial Hospital02-09-2024 Miscellaneous Notes* Telephone Encounter - Devi Lowe LPN - 10/23/2023 11:43 AM EST [place] with Dr. Lopez's office called for [facility]. Pt will be having colonoscopy there. Identified pt with name and date of . FAX: [phone]. Done. documented in this encounterMarietta Memorial Hospital02-06-2024 Miscellaneous Notes* Telephone Encounter - Yamilet Dotson RN - 10/20/2023 2:41 PM EST Patient calling and requesting Gastroenterology referral information be faxed to Dr. Lopez's office. Faxed as requested to [phone] Yamilet Dotson RN documented in this encounterMarietta Memorial Hospital12-04-2023 History of Present illness Narrative* Maggi [...] injection # 2 right knee LOT # [id number] EXP 08/09/2024 Taking Tylenol when needed for the pain. Mari Conti Ma documented in this encounterMarietta Memorial Hospital11-27-2023 History of Present illness Narrative* Jennifer Hardin RN - 08/10/2023 9:53 AM EST Euflexxa Injection Right knee LOT # [id number] EXP 2024-06-22 Jennifer Hardin RN * Jatinder Vick MD - 08/10/2023 9:31 AM ESTAssociated Order(s): Large Joint Arthro/Inj: R knee joint Post-Procedure Diagnose(s): Chronic pain of right knee; Primary osteoarthritis of right knee Jatinder Vick MD Department of Orthopaedics Orthopaedics [address] [place] [address] Dept: [phone] Dept August 10, 2023 CHIEF COMPLAINT: Follow [...] anxiety) Jatinder Vick MD documented in this encounterMarietta Memorial Hospital11-09-2023 Miscellaneous Notes* Telephone Encounter - Yamilet [...] SYMPTOMS: no 10. :post menopausal Protocols used: Ezqlvvhhp-GLHVJ-LB documented in this encounterMarietta Memorial Hospital10-26-2023 Instructions* Patient Instructions* Al Nichole APRN.CNP - 07/09/2023 1:23 PM EDT Bus[place]. documented in this encounterMarietta Memorial Hospital10-26-2023 History of Present illness Narrative* Al [...] - Instructed patient to contact office or uynkj-eu-wzep after-hours promptly should condition worsen or any new symptoms appear. - [facility] and after hours crisis line 5. [...] plan. Al Nichole APRN.CNP documented in this encounterMarietta Memorial Hospital08-25-2023 Miscellaneous Notes* Telephone Encounter - Cris Richards Ma - 05/08/2023 3:00 PM EDT Pt notified of results via Walkabouthart. Cris Richards Ma * Telephone Encounter - Al Nichole APRN.CNP - 05/08/2023 1:10 PM EDT Please let patient know that I reviewed all of her lab workups and the only thing I want to repeat at the moment is to recheck her sodium level next week. Order for BMP placed. Thank you Al Nichole APRN.NIKO documented in this encounterMarietta Memorial Hospital08-25-2023 Miscellaneous Notes* Telephone Encounter - Ilya Wagner JIGNESH - 05/08/2023 1:34 PM EDT BEHAVIORAL HEALTH SOCIAL WORK CONSULT NOTE Service Date: May 08, 2023 Patient was identified by name and Patient: Rosana Maki [address] [place] [address] (home) [phone] (cell) PCP: Rochelle Hackett MD [address] [facility] [place] [address] Patient identified for [facility] from: PCP Reason for referral: Resources Behavioral Health Resources: Psychology - talk therapy [facility] encounter type: Telephone Encounter Assessment: Referral made to engage patient experiencing anxiety . [facility] reviewed patient's chart and insurance to identify resources. Patient stated they are experiencing anxiety. Patient denies suicidal or homicidal ideation. Patient identified she is seeking therapy sooner than [facility]. [facility] will send resources to patient through [facility] per her request. Medications: Current Outpatient [...] 15 minutes JIGNESH Kuo-S documented in this encounterMarietta Memorial Hospital08-25-2023 History of Present illness Narrative* Al Nichole APRN.MEAT STOCK CLERK - 05/08/2023 8:08 AM EDT CC: Patient [...] palpitations and saw her cardiology group. Sees [facility] for history of A-fib. Had a [...] - Instructed patient to contact office or ltjvq-sl-wvmw after-hours promptly should condition worsen or any new symptoms appear. - [facility] and after hours crisis line 2. Nausea [...] plan. Al Nichole APRN.NIKO documented in this encounterMarietta Memorial Hospital08-12-2023 Discharge summary Author Tejinder Mora [facility] April 25, 2023 7:17pm Note Date/Time April 25, 2023 4: 40pm [facility] Medical Records Department [address] [place] [address] Emergency Department Summary 04/25/23 MR#: [id number] Acct: [id number] Name: ROSANA MAKI Rep #:[id number] : [...] bowel movement this morning that was normal. [facility] <RIGOBERTO Grant - Last Filed: 04/25/23 19:10> [facility] Medical History Anemia Atrial flutter Atrophic [...] mg/mL subcutaneous syringe (Prolia) 60 mg subcut [id number] bone density 08/16/19 [History Last Taken Unknown] [...] <RIGOBERTO Grant - Last Filed: 04/25/23 19:10> [facility] Narrative Medical decision making narrative: [...] Mora MD - Last Filed: 04/25/23 19:17> [facility] Narrative Medical decision making narrative: [...] Prolia 60 mg/mL syringe 60 mg SC [id number] (DME) Bilaterl knee high compression stockings (10-20) [...] your Primary Care Provider. Call [facility] ([phone]) or report to the closest Emergency Room. Call 911 if necessary. 04/25/231916 <Electronically signed by Tejinder Mora MD> Cosigner Signature (if applicable): 04/25/231909 <Electronically signed by Cammie FRANKLIN> CC: Dr. Rochelle Hackett MD ~ Signed [facility] Work Phone: [phone]) 696-970308-08-2023 Miscellaneous Notes* Telephone Encounter - Faith Hauser [...] Telephone Encounter - Sandra Leary APRN.CNP - 04/20/2023 4:35 PM EDT Please let patient know stool testing is negative. XR shows some stool burden but no obstruction documented in this encounterMarietta Memorial Hospital08-07-2023 History of Present illness Narrative* Sara Rangel APRN.CNS - 04/20/2023 4:39 PM EDT canceled documented in this encounterMarietta Memorial Hospital08-04-2023 Miscellaneous Notes* Telephone Encounter - Josie [...] her labs on Thursday. documented in this encounterMarietta Memorial Hospital08-03-2023 History of Present illness Narrative* Diana [...] 16, 2023 8:48 AM documented in this encounterMarietta Memorial Hospital08-03-2023 History of Present illness Narrative* Sandra Leary, JEAN-CLAUDE.MEAT STOCK CLERK - 04/16/2023 8:21 AM EDT Chief Complaint [...] - XR ABDOMEN 1V SUPINE Sandra Leary APRN.MEAT STOCK CLERK documented in this encounterMarietta Memorial Hospital08-02-2023 Miscellaneous Notes* Telephone Encounter - Grace [...] have stool sample tested. documented in this encounterMarietta Memorial Hospital07-26-2023 Discharge summary Author Denzel Boone [facility] April 08, 2023 7:25pm Note Date/Time April 08, 2023 3:08 pm [facility] Medical Records Department [address] [place] [address] Emergency Department Summary 04/08/23 MR#: [id number] Acct: [id number] Name: ROSANA MAKI #:[id number] : 1940 83 From: Denzel Daley PCP: Dr. Rochelle Hackett MD Status:REG E R Location: ED [facility] History of Present Illness Chief Complaint: Syncope [facility] Medical History Anemia Atrial flutter Atrophic [...] mg/mL subcutaneous syringe (Prolia) 60 mg subcut [id number] bone density 08/16/19 [History Last Taken Unknown] [...] MYSELF. EKG with n sinus bradycardia, prolonged FL interval, first-degree AV block rightaxis, normal intervals, [...] Std Deviation 48.8 H RDW Coeff of Idnaia 14.2 Plt Count 248 MPV 9.9 Immature Gran % (Auto) 0.000 Neut % (Auto) 40.4 L Lymph % (Auto) 45.0 H [place] % (Auto) 12.9 H Eos % (Auto) [...] Prolia 60 mg/mL syringe 60 mg SC [id number] (DME) Bilaterl knee high compression stockings (10-20) [...] your Primary Care Provider. Call [facility] ([phone]) or report to the closest Emergency Room. Call 911 if necessary. 04/08/231924 <Electronically signed by Denzel Boone DO> Cosigner Signature (if applicable): CC: Dr. Rochelle Hackett MD ~ Signed [facility] Work Phone: 1(670) 945-185107-26-2023 History of Present illness Narrative* Rishi Romero APRN.CNP - 04/08/2023 4:39 PM EDT [facility]. Blacked out helped to bed. Still feeling woosy I will refer to ER, to drive pov to [facility] Er. documented in this encounterMarietta Memorial Hospital07-26-2023 Miscellaneous Notes* Telephone Encounter - Irish [...] pain or bleeding. Protocols used: Dizziness - Xfhutmtxjakegjf-GXBOX-FD documented in this encounterMarietta Memorial Hospital05-03-2023 History of Present illness Narrative* Sol [...] Harvey DPM Podiatry [address] [facility] [address] Dept: [phone] Dept * Caroline Day LPN - 01/14/2023 2:55 PM EDT AMB ROOMING INTAKE FLOWSHEET DATA Pain Pain Level: 7 Pain Location: Toe Description: Aching, Sore Duration Units: Years Frequency: Continuous Intervention/Comfort measure: Reposition, Relaxation Patient presents with: Left Foot - New, Nail Fungus, Pain, Ingrown Toenail Right Foot - New, Nail Fungus, Pain, Ingrown Toenail Caroline Day LPN documented in this encounterMarietta Memorial Hospital03-10-2023 Discharge summary Author Brianda Pedro [facility] November 21, 2022 2:27pm Note Date/Time November 21, 2022 9:3 4am [facility] Physical Therapy [facility] [address] [place] [address]. [address] [place] [address] / REHABILITATION SERVICES DISCHARGE SUMMARY MR#: [id number] Acct: [id number] Name: ROSANA MAKI Rep #: [id number] : 1940 82 From: Cert. ANGEL Altman, OCS Referring : Status: REG RCR Insurance: MEDICARE PART A B [employer] It has been my pleasure to [...] please feel free to call me at [phone]. Thank you for the referral of thispatient. Sincerely, Brianda Pedro PT, Cert MDT, OCS Balance/Gait/Functional tests - Balance/Special Test Scores Lower Extremity Functional Score: 47 <Electronically signed by Brianda Pedro PT, Cert. T, OCS> 11/21/22 0780 CC: Dr. Rochelle Hackett MD; MAGGI MCDANIEL ~ JLDeo Signed [facility] Work Phone: 1(411) 627-114103-03-2023 History of Present illness Narrative* Rochelle Hackett [...] Atrial Fibrillation - sees Dr. Cooley at [facility], last saw a few months ago. [...] recently Rochelle Hackett MD documented in this encounterMarietta Memorial Hospital12-24-2022 Miscellaneous Notes* Telephone Encounter - Ron Wong MD - 09/06/2022 8:22 AM EST Patient was able to have the Molnupiravir prescription transferred to [facility] and started the medicine last night. * Telephone Encounter - Lyssa Cerda LPN - 09/06/2022 8:12 AM EST See pharmacy's note to change rx. documented in this encounterMarietta Memorial Hospital12-23-2022 Instructions* Patient Instructions* Ron Wong MD [...] healthcare provider to share your information with [employer],then your healthcare provider will report your use of molnupiravir during to [employer]. by calling or Pregnancyreporting.[employer] [place]. For individuals who are sexually active with [...] molnupiravir for the treatment of adults with dyag-kc-jaabqqew coronavirus disease 2019 (COVID-19) with positive results [...] virus. COVID-19 illnesses have ranged from very ymhb-rc-khqbek, including illness resulting in . While information [...] is an investigational medicine used to treat ctpx-sz-airfclrc COVID-19 in adults: with positive results of [...] serious illnesses Are taking any medicines (prescription, dtvh-sss-kuqdpvx, vitamins, or herbal products). How do I [...] to treat people with COVID-19. Go to https://www.fda.gov/ccnffdmsj-ziwulrojkyqt-tfc-response/zyq-vuuebemzstkdots-yyh- policy-framework/povpjldym-jcz-kgxdqbjpijbdq for more information. It is your choice [...] to FDA MedWatch at www.fda.gov/medwatch or call 9-734-LDH-1343 ( ). How should I store molnupiravir? Store molnupiravir capsules at room temperature between 68 F to 77 F (20 C to 25 C). Keep molnupiravir and all medicines out of the reach of children and pets. How can I learn more about COVID-19? Ask your healthcare provider. Visit www.cdc.gov/COVID19 Contact your local or state public health department. Call [employer] at (toll free in the [place] Visit www.ElastranupiraHitlantis What Is an Emergency Use Authorization (EUA)? The [place] FDA has made molnupiravir available under an emergency access mechanism called an Emergency Use Authorization (EUA) The EUA is supported by a [employer] Installer of Health and Human Service (HHS) declaration that circumstances exist to justify emergency use of drugs and biological products during the COVID-19 pandemic. Molnupiravir for the treatment of zutj-ko-rkekeebc COVID-19 in adults with positive results of [...] used under the EUA). For patent information: www.[employer] [place]/research/patent Copyright 2020 [employer] [place], [facility] and its affiliates. All rights reserved. [id number] Issued: 09/05/2021 documented in this encounterMarietta Memorial Hospital12-23-2022 History of Present illness Narrative* Ron [...] increased WOB Molnupiravir Eligibility and Patient Discussion [facility] Formulary Restriction Criteria: Adult outpatients 18 [...] CORONAVIRUS Ron Wong MD documented in this encounterMarietta Memorial Hospital12-23-2022 Miscellaneous Notes* Telephone Encounter - Josie Blankenship RN - 09/05/2022 4:59 PM EST Pt called in and reports she couldn't get connected to the [facility]. Let Pt know to come into [facility] and bring her Covid test as they are open until 8 pm. They can prescribe the antivirals to her and student counsellor her on which one to take with [...] express care on line. documented in this encounterMarietta Memorial Hospital12-15-2022 Miscellaneous Notes* Telephone Encounter - Josie Blankenship RN - 08/28/2022 12:16 PM EST Pt called and is notified of providers results and instructions. Pt voices understanding. Pt statesjoanna had wanted her urology order to go to the OBGYN Urologist with [facility]. I told her I didn'tknow of any with [facility], and she said she had thought she had read something about one. I toldher I knew of Dr Ahmadi and Dr Prince that work with [facility] and she said no to both those [...] you Al Nichole APRN.CNP documented in this encounterMarietta Memorial Hospital12-07-2022 Miscellaneous Notes* Telephone Encounter - Laly [...] you. Alice Jenkins APRN.CNP documented in this encounterMarietta Memorial Hospital12-06-2022 History of Present illness Narrative* Lori [...] by mouth twicedaily for 5 days. One [place] (Pure Encapsulation) -- fish oil Take 2 [...] plan. Lori Patel APRN.CNP documented in this encounterMarietta Memorial Hospital12-04-2022 Hospital Discharge instructions Additional Instructions Take the Reglan as directed to control nausea and vomiting and keep yourself well-hydrated. Your work-up is consistent with a viral stomach infection which will last on average 3 to 7 days. If you are continue to have bouts of emesis despite taking the Reglan or have any further concerns please return [facility] the [facility] Work Phone: 1(969) 133-425111-28-2022 History of Present illness Narrative* Maggi Mcdaniel [...] # 3 into right knee. LOT # [id number] EXP 06/27/2023 Dipika Merchant Ma * Padmini Thomas RN - 08/11/2022 1:27 PM EST Patient presents with: Right Knee - Injections, Established Patient AMB ROOMING INTAKE FLOWSHEET DATA Risk Screening Do you have concerns about personal safety or safety in the home?: No Pt states no pain in right knee at this time. documented in this encounterMarietta Memorial Hospital11-21-2022 History of Present illness Narrative* Maggi [...] Patient denies any pain today. LOT # [id number] EXP 06/27/2023 Mari Conti Ma documented in this encounterMarietta Memorial Hospital11-14-2022 History of Present illness Narrative* Maggi Mcdaniel PA-C - 07/28/2022 2:47 PM ESTAssociated Order(s): Large Joint Arthro/Inj: R knee joint Post-Procedure Diagnose(s): Primary osteoarthritis of right knee; Chronic pain of right knee Maggi Mcdaniel PA-C Department of Orthopaedics Orthopaedics [address] [place] [address] Dept: [phone] Dept July 28, 2022 CHIEF COMPLAINT: Established [...] 1,000 Units by mouth once daily. One [place] (Pure Encapsulation) -- fish oil Take 2 capsules by mouth daily with food. No current facility-administered medications for this visit. Allergies: Adhesive Tape (Rosins), Cantaloupe, Erythromycin, Grass Pollen, Mold, Penicillins, Pollen, Prevacid [Lansoprazole], and Sulfa (Sulfonamide Antibiotics) This note was partially generated using [employer] voice recognition system, and there may be some incorrect words, spellings, and punctuation that were not noted in checking the note before saving. aMggi Mcdaniel PA-C * Dipika Merchant Ma - 07/28/2022 2:26 PM EST Euflexxa injection # 1 into right knee LOT # [id number] EXP 06/27/2023 Dipika Merchant Ma * Ashley [...] since. Started water PT. documented in this encounterMarietta Memorial Hospital10-31-2022 Miscellaneous Notes* Telephone Encounter - Maggi [...] insurance for gel injection? documented in this encounterMarietta Memorial Hospital10-29-2022 Miscellaneous Notes* Telephone Encounter - Angelic [...] care discussed at visit. documented in this encounterMarietta Memorial Hospital10-28-2022 History of Present illness Narrative* Justine [...] - can cause loose stools 0 One [place] (Pure Encapsulation) -- fish oil Take 2 [...] LAB Justine Irizarry PA-C documented in this encounterMarietta Memorial Hospital10-24-2022 History of Present illness Narrative* Sofía [...] night - can cause loose stools One [place] (Pure Encapsulation) -- fish oil Take 2 [...] healed Sofía Baig PA-C documented in this encounterMarietta Memorial Hospital09-26-2022 History of Present illness Narrative* Maggi Mcdaniel PA-C - 06/09/2022 12:35 PM EDT Maggi Mcdaniel PA-C Department of Orthopaedics Orthopaedics [facility] [address] [facility] [address] Dept: [phone] Dept June 09, 2022 CHIEF COMPLAINT: Established [...] Imaging: IMPRESSION: Progressive lateral joint compartment osteoarthrosis Staff Design Engineer: BO Transcribe Date/Time: Apr 21 2022 3:52P Dictated by : BRIANDA OROPEZA MD This examination was interpreted and the report reviewed and electronically signed by: BRIANDA OROPEZA MD on Apr 21 2022 3:52PM EST Results-Findings * * *Final Report* * * DATE OF EXAM: Apr 21 2022 3:26PM ZACH [id number] - XR KNEE 4V AP/PA BOTH+LAT/OSCAR RT / PROCEDURE REASON: [id number] * * * * Physician Interpretation * [...] 1,000 Units by mouth once daily. [facility] [place] (Pure Encapsulation) -- fish oil Take 2 [...] anxiety) This note was partially generated using [employer] voice recognition system, and there may be [...] has been ongoing. Patient was seen in [place] 7 weeksago and given an injection; she was also given a brace to wear. Patient has been doing some physical therapy but the last week has not been able to go d/t intense pain. Last xray 04/21/22. [facility] History of Present illness Narrative* Rochelle [...] Atrial Fibrillation - sees Dr. Cooley at [place] [facility], last saw a few months ago. [...] at night Stress, blood sugar, thyroid/hormones/adrenals/sleep/energy/toxins/muscles/constipation/asthma [facility] [place] (Pure Encapsulation) -- fish oil metoprolol succinate [...] before. Rochelle Hackett MD documented [facility] History of Present illness Narrative* Jessy [...] applicable Jessy Pina PA-C documented in this encounterM[facility]08-[facility]-2022 Miscellaneous Notes* [facility] - Anayeli Patel RT(R) - 04/21/2022 2:30 PM EDT Radiology Service Progress Note PATIENT NAME: Rsoana Maki DATE OF SERVICE: April 21, 2022 [...] 21, 2022 3:27 PM documented in this encounterM[facility]05[facility]27-[facility] History of Present illness Narrative* Alice Jenkins APRN.MEAT STOCK CLERK - 02/07/2022 10:19 AM EDT Subjective The history is provided by the patient. No professor of languages was used. HPI Rosana Maki is a [...] have confirmed and edited as necessary, the [facility] Review of Systems Constitutional: Negative for [...] in 24-48 hours with results, available on Walkabouth[employer] - ASYMPTOMATIC ELECTIVE COVID-19 Diagnosis and treatment plan were discussed and questions were answered to the patient's satisfaction. Pt acknowledged understanding of concepts and follow up plan. Specific signs and symptoms that would indicate the need for higher level of care were discussed indetail warranting prompt ER evaluation. Alice Jenkins APRN.NIKO documented in this encounterM[facility]05[facility]23-[facility]22 Miscellaneous Notes* Telephone Encounter - Rochelle [...] to your local emergency facility: Notify the teletray operator that you are seeking care for [...] can be around others. documented in this encounterM[facility]05[facility]-2022 Miscellaneous Notes* Telephone Encounter - Gauri Sanchez LPN - 01/20/2022 11:42 AM EDT Patient notified of results. Gauri Sanchez LPN * Telephone Encounter - Al Nichole APRN.CNP - 01/20/2022 9:44 AM EDT Please let patient know that I have reviewed Recent lab work and it is within acceptable ranges andsimilar to previous results. Thank you Al Nichole APRN.CNP documented in this encounterM[facility]04[facility]22 Miscellaneous Notes* Telephone Encounter - Gauri [...] you. Gauri Sanchez LPN documented in this encounterM[facility]04[facility]20-2022 Miscellaneous Notes* Telephone Encounter - Cristina [...] she had labs done in November at [facility]. Please advise on labs. Please review and advise, Yuli Delgado RN documented in this encounterM[facility]04-18-2022 Miscellaneous Notes* Telephone Encounter - Magdiel Villalba Ma - 12/30/2021 9:24 AM EDT Pt notified via Walkabouthart. * Telephone Encounter - Josie Blankenship RN [...] new prescription can be sent to [facility] pharmacy? Please review and advise, Yuli [...] having daily. Requesting [facility] pharmacy in [place]. Patient also asking if she can have a referral for GI consult due to stomach issues? She would liketo see Dr. Sharma possibly since she has done a colonoscopy on her in the past. Please call patient with provider's response. Thank you. documented in this encounterM[facility]07-13-2021 History of Present illness Narrative* Diana [...] 26, 2021 2:42 PM documented in this encounterM[facility]03[facility] History of Past illness Narrative* Problem [...] of this encounter (statuses as of 11/14/2022) [facility] Narrative* Problem [...] of this encounter (statuses as of 01/15/2023) [facility] Narrative* Problem [...] of this encounter (statuses as of 04/08/2023) [facility] Narrative* Problem [...] of this encounter (statuses as of 04/09/2023) [facility] Narrative* Problem [...] of this encounter (statuses as of 04/16/2023) [facility] Narrative* Problem [...] of this encounter (statuses as of 04/16/2023) [facility] Narrative* Problem [...] of this encounter (statuses as of 04/21/2023) [facility] Narrative* Problem [...] of this encounter (statuses as of 04/21/2023) [facility] Narrative* Problem [...] of this encounter (statuses as of 04/24/2023) [facility] Narrative* Problem [...] of this encounter (statuses as of 05/05/2023) [facility] Narrative* Problem [...] of this encounter (statuses as of 05/08/2023) [facility] Narrative* Problem [...] of this encounter (statuses as of 05/08/2023) [facility] Narrative* Problem [...] of this encounter (statuses as of 07/10/2023) [facility] Narrative* Problem [...] of this encounter (statuses as of 07/23/2023) [facility] Narrative* Problem [...] of this encounter (statuses as of 07/29/2023) [facility] Narrative* Problem [...] of this encounter (statuses as of 08/10/2023) [facility] Narrative* Problem [...] of this encounter (statuses as of 08/17/2023) [facility] Narrative* Problem [...] of this encounter (statuses as of 10/21/2023) [facility] N[facility]ative* Problem [...] of this encounter (statuses as of 10/23/2023) [facility] Narrative* Problem [...] of this encounter (statuses as of 10/30/2023) [facility] Narrative* Problem [...] of this encounter (statuses as of 11/02/2023) [facility] Narrative* Problem [...] of this encounter (statuses as of 11/02/2023) [facility] Narrative* Problem [...] of this encounter (statuses as of 11/18/2023) [facility] Narrative* Problem [...] of this encounter (statuses as of 12/15/2023) [facility]* Diagnosis Onset Date Resolution Status 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, 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 Anemia chronic 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, 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 Vaginal dryness chronic Cerebrovascular disease 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 Mild cognitive impairment ch ronic SIADH (syndrome of inappropriate ADH production) [facility] Work Phone: 1(446) 586-822908-01-2017 Evaluation note* Diagnosis Onset Date Resolution Status 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, 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 Anemia chronic 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, 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 Vaginal dryness chronic Mild cognitive impairment ch ronic SIADH (syndrome of inappropriate ADH production) [facility] Work Phone: 1(121) 858-587408-01-2017 Evaluation note* Diagnosis Onset Date Resolution Status [...] mitral (valve) prolapse chronic Paroxysmal atrial fibrillation [facility] Work Phone: [phone]) 880-144508-01-2017 Evaluation note* Diagnosis Onset Date Resolution Status [...] mitral (valve) prolapse chronic Paroxysmal atrial fibrillation [facility] Work Phone: [phone]) 498-378208-01-2017 Evaluation note* Diagnosis Onset Date Resolution Status [...] mitral (valve) prolapse chronic Paroxysmal atrial fibrillation [facility] Work Phone: [phone]) 608-538704-07-2016 History of Past illness Narrative* Problem Noted [...] of this encounter (statuses as of 12/30/2021) [facility] Narrative* Problem [...] of this encounter (statuses as of 01/01/2022) [facility] Narrative* Problem [...] of this encounter (statuses as of 01/06/2022) [address]07-2016 History of Past illness Narrative* Problem [...] of this encounter (statuses as of 01/20/2022) [facility] Narrative* Problem [...] of this encounter (statuses as of 02/07/2022) [facility] Narrative* Problem [...] of this encounter (statuses as of 04/17/2022) [facility] Narrative* Problem [...] of this encounter (statuses as of 04/21/2022) [facility] N[facility]ative* Problem [...] of this encounter (statuses as of 04/22/2022) [facility] Narrative* Problem [...] of this encounter (statuses as of 05/02/2022) [facility] Narrative* Problem [...] of this encounter (statuses as of 05/16/2022) [facility] Narrative* Problem [...] of this encounter (statuses as of 06/09/2022) [facility] N[facility]ative* Problem [...] of this encounter (statuses as of 07/07/2022) [facility] Narrative* Problem [...] of this encounter (statuses as of 07/11/2022) [facility] Narrative* Problem [...] of this encounter (statuses as of 07/12/2022) [facility]* Problem [...] of this encounter (statuses as of 07/14/2022) [facility] Narr[facility]* Problem [...] of this encounter (statuses as of 07/29/2022) [facility]* Problem [...] of this encounter (statuses as of 08/04/2022) [facility] N[facility]* Problem [...] of this encounter (statuses as of 08/11/2022) [address]07-2016 History of Past illness Narrative* Problem [...] of this encounter (statuses as of 08/19/2022) [facility] N[facility]* Problem [...] of this encounter (statuses as of 08/20/2022) [facility] Narrative* Problem [...] of this encounter (statuses as of 08/28/2022) [facility]arr[facility]* Problem [...] of this encounter (statuses as of 09/07/2022) [facility] Narrative* Problem [...] of this encounter (statuses as of 09/07/2022) [facility] Narrative* Problem [...] of this encounter (statuses as of 09/08/2022) [facility] Narrative* Problem [...] this encounter (statuses as of 10/30/2022) [facility] complaint+Reason for visit Narrative* Chief Complaint [...] Nonrheumatic mitral (valve) prolapse Paroxysmal atrial fibrillation [facility] Work Phone: Evaluation note* Diagnosis Nausea Nausea alone Dizziness Dizziness and giddiness [facility] Diagnosis Exposure to COVID-19 virus- Primary [facility] encounter [facility] Diagnosis Onset Date Resolution Status Cerebrovascular disease 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 Mild cognitive impairment ch ronic 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 Chest pain, unspecified acut e Fatigue acute Hyponatremia with decreased serum osmolality acute Nonrheumatic mitral (valve) prolapse chronic Paroxysmal atrial fibrillation chronic [facility] Work Phone: Evaluation note* Diagnosis Onset [...] 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 Vaginal dryness chronic [facility] Work Phone: Evaluation note* Diagnosis Pain- Primary Generalized pain documented in this encounter [facility] note* Diagnosis Primary osteoarthritis of right knee- Primary Primary localized osteoarthrosis, lower leg Acquired genu valgum of right knee documented in this encounter [facility] note* Diagnosis Pain Generalized [facility] Medication management Encounter for long-term (current) use of other medications [facility]* Diagnosis 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 Paroxysmal atrial fibrillation (HCC) Atrial fibrillation Dizziness and giddiness Chronic fatigue disorder Chronic fatigue syndrome Mild cognitive disorder Unspecified persistent mental disorders due to conditions classified elsewhere [facility] Diagnosis Onset Date Resolution Status [...] Vaginal dryness chronic Anemia chronic Cerebrovascular disease 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 Edema of both legs chronic Mild cognitive impairment ch ronic 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 [facility] Work Phone: Evaluation note* Diagnosis Primary osteoarthritis of right knee- Primary Primary localized osteoarthrosis, lower leg Chronic pain of right knee [facility] Diagnosis Onset Date Resolution Status Chest [...] Vaginal dryness chronic Anemia chronic Cerebrovascular disease 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 Edema of both legs chronic Mild cognitive impairment ch ronic 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 Encounter for screening for COVID-19 acute [facility] Work Phone: Evaluation note* Diagnosis Visit for suture removal- Primary Encounter for removal of sutures Laceration of right index finger without damage to nail, foreign body presence unspecified, initial encounter [facility] encounter [facility] Diagnosis Right leg swelling- Primary Swelling of limb [facility] Diagnosis Primary osteoarthritis of right knee- Primary Primary localized osteoarthrosis, lower leg Chronic pain of right knee [facility] Diagnosis Primary osteoarthritis of right knee- Primary Primary localized osteoarthrosis, lower leg [facility] Diagnosis Onset Date Resolution Status Anemia chronic Cerebrovascular disease 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 Edema of both legs chronic Mild cognitive impairment ch ronic 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 Encounter for screening for COVID-19 acute Hyponatremia with decreased serum osmolality acute Nonrheumatic mitral (valve) prolapse chronic Paroxysmal atrial fibrillation chronic [facility] Work Phone: Evaluation note* Diagnosis Urinary frequency- Primary [facility] Diagnosis Abnormal thyroid blood test- Primary Nonspecific abnormal results of thyroid function study Other fatigue [facility] Diagnosis Acute COVID-19- Primary [facility] Diagnosis Acute COVID-19 [facility]* Diagnosis Urinary incontinence, unspecified type- Primary Paroxysmal atrial fibrillation (HCC) Atrial fibrillation SIADH (syndrome of inappropriate ADH production) ([facility]) Other disorders of neurohypophysis Chronic fatigue disorder Chronic fatigue syndrome Dizziness and giddiness Mild cognitive disorder Unspecified persistent mental disorders due to conditions classified elsewhere Major depressive disorder, recurrent, in partial remission ([facility]) Major depressive disorder, recurrent episode, in partial or unspecified remission [facility]* Diagnosis Onychomycosis- Primary Dermatophytosis of nail Diminished pulses in lower extremity Other symptoms involving cardiovascular system Protein-calorie malnutrition, unspecified severity ([facility]) [facility] Diagnosis Onset Date Resolution Status Hyponatremia with decreased serum osmolality acute Nonrheumatic mitral (valve) prolapse chronic Paroxysmal atrial fibrillation chronic Polyneuropathy acute Mild cognitive impairment ch ronic 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 [facility] Work Phone: Evaluation note* Diagnosis Black-out (not amnesia)- Primary Syncope and collapse [facility] Diagnosis Onset Date Resolution Status Hyponatremia [...] 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 Vaginal dryness [facility] Work Phone: Evaluation note* Diagnosis Diarrhea, unspecified type- Primary [facility] encounter [facility]* Diagnosis APPOINTMENT CANCELLED- Primary [facility]* Diagnosis Medication management Encounter for long-term (current) use of other medications [facility] Diagnosis Onset Date Resolution Status Hyponatremia [...] mitral (valve) prolapse chronic Paroxysmal atrial fibrillation [facility] Work Phone: Evaluation note* Diagnosis Hyponatremia- Primary Hyposmolality and/or hyponatremia [facility]* Diagnosis Anxiety and depression- Primary Dysthymic disorder Nausea Nausea alone Dizziness Dizziness and giddiness Diarrhea, unspecified type Paroxysmal atrial fibrillation (HCC) Atrial fibrillation Hyponatremia Hyposmolality and/or hyponatremia Chronic fatigue disorder Chronic fatigue syndrome Gastroesophageal reflux disease, unspecified whether esophagitis present [facility]* Diagnosis Diarrhea, unspecified type- Primary 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) Other disorders of neurohypophysis Hyponatremia Hyposmolality and/or hyponatremia Anxiety Anxiety state, unspecified Chronic pain of right knee Need for influenza vaccination Need for prophylactic vaccination and inoculation against influenza [facility]* Diagnosis Right knee pain, unspecified chronicity- Primary [facility]* Diagnosis Primary osteoarthritis of right knee- Primary Primary localized osteoarthrosis, lower leg Chronic pain of right knee [facility]* Diagnosis Onset Date Resolution Status Hyponatremia with decreased serum osmolality acute Nonrheumatic mitral (valve) prolapse chronic Paroxysmal atrial fibrillation chronic Chest pain, unspecified acut e Fatigue acute Hyponatremia with decreased serum osmolality acute Nonrheumatic mitral (valve) prolapse chronic Paroxysmal atrial fibrillation chronic [facility] Work Phone: Evaluation note* Diagnosis Chronic pain of right knee- Primary Primary osteoarthritis of right knee Primary localized osteoarthrosis, lower leg [facility]* Diagnosis Onset Date Resolution Status Chest pain, unspecified acut e Fatigue acute Hyponatremia with decreased serum osmolality acute Nonrheumatic mitral (valve) prolapse chronic Paroxysmal atrial fibrillation chronic Abnormality of gait and mobility acute Fatigue acute Orthostatic hypotension acut e Polyneuropathy acute Sarcopenia acute Mild cognitive impairment ch ronic 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 [facility] Work Phone: Evaluation note* Diagnosis Onset [...] breast April, 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 [facility] Work Phone: Evaluation note* Diagnosis Mastodynia- Primary Costochondritis Tietze's disease documented [facility] encounter [facility]* Diagnosis TIA (transient ischemic attack)- Primary Unspecified transient cerebral ischemia Aphasia Ocular migraine Other forms of migraine, without mention of intractable migraine without mention of status migrainosus Yeast dermatitis Candidiasis of skin and nails [facility] Diagnosis TIA (transient ischemic attack) Unspecified transient cerebral ischemia Aphasia Ocular migraine Other forms of migraine, without mention of intractable migraine without mention of status migrainosus [facility]* Diagnosis Onset Date Resolution Status [...] ac uma Intractable nausea and vomiting acute [facility] Work Phone: Evaluation note* Diagnosis Onset [...] Intractable nausea and vomiting resolved Fatigue acute [facility] Work Phone: Evaluation note* Diagnosis Urinary incontinence, unspecified type- Primary Urinary tract infection without hematuria, site unspecified [facility] Diagnosis Onset Date Resolution Status [...] and vomiting resolved Fatigue acute Fatigue acute [facility] Work Phone: Evaluation note* Diagnosis Vitamin [...] conditions classified elsewhere [facility]* Diagnosis Mild cognitive impairment- Primary Mild cognitive impairment, so stated [facility]* Diagnosis Onychomycosis- Primary Dermatophytosis of nail Ingrowing toenail Ingrowing nail [facility] Diagnosis Persistent atrial fibrillation (HCC)- Primary [...] of other medications [facility] Diagnosis Persistent atrial fibrillation (HCC)- Primary [...] unspecified Other fatigue [facility] Diagnosis Persistent atrial fibrillation (HCC)- Primary [...] Diarrhea, unspecified type [facility] Diagnosis Persistent atrial fibrillation (HCC)- Primary [...] Primary Ingrowing nail documented [facility] Diagnosis Persistent atrial fibrillation (HCC)- Primary [...] of right knee [facility] Diagnosis Persistent atrial fibrillation (HCC)- Primary [...] initial encounter- Primary [facility] Diagnosis Persistent atrial fibrillation (HCC)- [...] unspecified type- Primary [facility] Diagnosis Onset Date Resolution Status Chest pain, unspecified acut e Fatigue acute Hyponatremia with decreased serum osmolality acute Nonrheumatic mitral (valve) prolapse chronic Paroxysmal atrial fibrillation [facility] Work Phone: Evaluation note* Diagnosis Atrial fibrillation- [...] Primary Hypersomnia, unspecified [facility] Atrial [facility]- Primary Sleep [...] Primary Hypersomnia, unspecified [facility] Diagnosis Persistent atrial fibrillation (HCC)- [...] hyponatremia Hypokalemia Hypopotassemia documented in this encounter [facility] note* Diagnosis Persistent atrial fibrillation (HCC)- Primary [...] Fall, subsequent encounter documented in this encounter [facility] note* Diagnosis Persistent atrial fibrillation (HCC)- Primary [...] unspecified back location [facility] this encounter [facility] Diagnosis Persistent atrial fibrillation (HCC)- Primary [...] thoracic vertebra (HCC) documented in this encounter [facility] note* Diagnosis Persistent atrial fibrillation (HCC)- Primary [...] Insomnia, unspecified type [facility] Diagnosis Persistent atrial fibrillation (HCC)- [...] (HCC) Glucocorticoid deficiency [facility] November 21, 2023 11:25pm Note Date/Time November 21, 2023 11:[address] [place] [address] System Medical Records Department [address] [place] [address] H&P Exam - Hospitalist 11/21/23 2307 MR#: [id number] Acct: [id number] Name: ROSANA MAKILINA Rep #:[id number] : [...] CA, Hx TIA who presents to the [facility] ED on 11/21/23 with history of onset [...] wellas Reglan 10 mg IV x 1. [facility] Medical History (Updated 11/21/23 @ 23:23 [...] % (Auto) 60.6, Lymph % (Auto) 32.0, [place]% (Auto) 6.2, Eos % (Auto) 0.4, Baso [...] Clarity Clear, Urine pH 8.0, Ur Specific Dante 1.015, Urine Protein 15 H, Urine Glucose [...] [place], Hx TIA who presents to the [facility] ED on 11/21/23 with history of onset [...] left breast: Patient (T1b, N0,M0) ER positive [place] positive HER-2 negative by FISH, G1 s/p left mastectomy with sentinel lymph node biopsy 04/17/2017, transitioned to Arimidex following and thenaddition of Prolia for bone support therapy, following with oncology, most recent visit noted 10/08/2023 with Toemka Ascencio unclear exact type, status postleft mastectomy, [...] 16 minutes. Charges/Coding Visit Charges Inpatient E&M: 26411 Init Hosp L2 Procedures Hospitalists Procedures: 63927 Advncd Care Plan 30 Min 11/21/23 4752 <Electronically signed by Michelle Hunt MD> Cosigner Signature (if applicable): CC: Dr. Michelle Hunt MD; Dr. Rochelle Hackett MD~ Signed [facility] Work Phone: Hospital Discharge instructions Additional [...] care physician for further outpatient evaluation and management.[facility] Work Phone: Hospital Discharge instructions Additional Instructions Please follow-up with your PCP and return for any worsening of your symptoms. Stay well-hydrated.[facility] Work Phone: Hospital Discharge instructions Additional Instructions Plenty of fluids and rest. Increase diet slowly as tolerated. Follow-up with your doctor as needed. Return if worse. Zofran as needed for nausea.[facility] Work Phone: Hospital Discharge instructions Additional Instructions Please follow-up with your PCP. Stay well-hydrated, return for any worsening of your symptoms.[facility] Work Phone: Reason for referral (narrative)* Diagnostic Procedure Only (Routine) - Authorized Specialty Diagnoses / Procedures Referred By Phong t Referred To Contact XR IMAGING Diagnoses Pain Procedures XR KNEE GENERAL 4V AP BOTH/PA BOTH/LAT/MERC RIGHT RADIOLOGIC EXAM KNEE COMPLETE 4/MORE VIEWS Jessy Pina PA-C [address] [place] [address] Xr Imaging Referral ID Status Reason Start Date Expiration Date Visits Requested Visits Authorized [id number] Authorized Auto-Generat ed Referral 04/17/2022 05/17/[address] [facility] for referral (narrative)* Diagnostic Procedure Only (Routine) - Closed Specialty Diagnoses / Procedures Referred By Contac t Referred To Contact XR IMAGING Diagnoses Pain Procedures XR KNEE GENERAL 4V AP BOTH/PA BOTH/LAT/MERC RIGHT RADIOLOGIC EXAM KNEE COMPLETE 4/MORE VIEWS Jessy Pina PA-C [address] [place] [address] Xr Imaging Referral ID Status Reason Start Date Expiration Date V isits Requested Visits Authorized [id number] Closed Auto-Generate d Referral 04/17/2022 05/17/[address] [facility] for referral (narrative)* Outpatient Procedure (Urgent) - Closed Specialty Diagnoses / Procedures Referred By Contac t Referred To Contact [facility] Diagnoses Right leg swelling Procedures US LEG VEIN DVT UNL VAS LAB DUP-SCAN XTR VEINS UNILATERAL/LIMITED STUDY Justine Irizarry PA-C [address] [place] [address] [facility] [place] [address] [place] [id number] Referral ID Status Reason Start Date Expiration Date V isits Requested Visits Authorized [id number] Closed Auto-Generate d Referral 07/11/2022 07/11/[address] [facility] for referral (narrative)* Outpatient Procedure (Routine) - Authorized Specialty Diagnoses / Procedures Referred By Contac t Referred To Contact [facility] Diagnoses Onychomycosis Diminished pulses in lower extremity Procedures PVR ANK PRESS NANCY VAS LAB NON-INVAS PHYSIOLOGIC STD EXTREMITY ART 2 LEVEL Sol Harvey [address] [place] [address] [facility] [place] [address] [place] [address] Referral ID Status Reason Start Date Expiration Date Visits Requested Visits Authorized [id number] Authorized Auto-Generat ed Referral 01/14/2023 01/14/[address] [facility] for referral (narrative)* Diagnostic Procedure Only (Routine) - Closed Specialty Diagnoses / Procedures Referred By Contac t Referred To Contact XR IMAGING Diagnoses Diarrhea, unspecified type Procedures XR ABDOMEN 1V SUPINE RADIOLOGIC EXAM ABDOMEN 1 VIEW Sandra Leary APRN.MEAT STOCK CLERK [address] [place] [address] Xr Imaging Referral ID Status Reason Start Date Expiration Date V isits Requested Visits Authorized [id number] Closed Auto-Generate d Referral 04/16/2023 05/15/[address] [facility] for referral (narrative)* Diagnostic Procedure Only (Routine) - Pending Review Specialty Diagnoses / Procedures Referred By Contac t Referred To Contact XR IMAGING Diagnoses Right knee pain, unspecified chronicity Procedures XR KNEE GENERAL 4V AP BOTH/PA BOTH/LAT/MERC RIGHT RADIOLOGIC EXAM KNEE COMPLETE 4/MORE VIEWS Jatinder Vick MD [address] [place] [address] [place] [address] Referral ID Status Reason Start Date Expiration Date Visits Requested Visits Authorized [id number] Pending Review Auto-Generat ed Referral 3 08/27/[address] [facility] for referral (narrative)* Outpatient Procedure (Routine) - Authorized Specialty Diagnoses / Procedures Referred By Contac t Referred To Contact [facility] Diagnoses TIA (transient ischemic attack) Aphasia Ocular migraine Procedures US CAROTID ARTERIES NANCY VAS LAB DUPLEX SCAN EXTRACRANIAL ART COMPL BI STUDY Irish Warren APRN.MEAT STOCK CLERK [address] [place] [address] [facility] [place] [address] [place] [address] [place] [address] Referral ID Status Reason Start Date Expiration Date Visits Requested Visits Authorized [id number] Authorized Auto-Generat ed Referral 11/02/2023 11/01/2024 1 1 * MRI/CT (Routine) - Authorized Specialty Diagnoses / Procedures Referred By Contac t Referred To Contact CT IMAGING Diagnoses TIA (transient ischemic attack) Aphasia Ocular migraine Procedures CT BRAIN WO IVCON CT HEAD/BRAIN W/O CONTRAST MATERIAL Irish Warren APRN.CNP [address] [place] [address] Ct Imaging [facility] Referral ID Status Reason Start Date Expiration Date Visits Requested Visits Authorized [id number] Authorized Auto-Generat ed Referral 11/02/2023 12/01/[address] [facility] for referral (narrative)* Diagnostic Procedure Only (Routine) - Closed Specialty Diagnoses / Procedures Referred By Contac t Referred To Contact XR IMAGING Diagnoses Diarrhea, unspecified type Procedures XR ABDOMEN 1V SUPINE RADIOLOGIC EXAM ABDOMEN 1 VIEW Sandra Leary APRN.CNP [facility] [place] [address] Xr Imaging [facility] Referral ID Status Reason Start Date Expiration Date V isits Requested Visits Authorized [id number] Closed Auto-Generate d Referral 04/16/2023 05/15/[address] [facility] for referral (narrative)No reason for referral information [facility] Work Phone: Reason for visit Narrative* Diagnostic Procedure Only (Routine) - Closed Specialty Diagnoses / Procedures Referred By Contac t Referred To Contact XR IMAGING Diagnoses Pain Procedures XR KNEE GENERAL 4V AP BOTH/PA BOTH/LAT/MERC RIGHT RADIOLOGIC EXAM KNEE COMPLETE 4/MORE VIEWS Jessy Pina PA-C [address] [place] [address] Xr Imaging Referral ID Status Reason Start Date Expiration Date V isits Requested Visits Authorized [id number] Closed Auto-Generate d Referral 04/17/2022 05/17/[address] [facility] for visit Narrative* Diagnostic Procedure Only (Routine) - Closed Specialty Diagnoses / Procedures Referred By Contac t Referred To Contact XR IMAGING Diagnoses Diarrhea, unspecified type Procedures XR ABDOMEN 1V SUPINE RADIOLOGIC EXAM ABDOMEN 1 VIEW Sandra Leary 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 [address] [place] [address] [place] [address] Referral ID Status Reason Start Date Expiration Date V isits Requested Visits Authorized [id number] Closed Auto-Generate d Referral 04/16/2023 05/15/[address] [facility] for visit Narrative* Diagnostic Procedure Only (Routine) - Closed Specialty Diagnoses / Procedures Referred By Contac t Referred To Contact XR IMAGING Diagnoses Acute midline back pain, unspecified back location Fall, subsequent encounter Procedures XR LUMBAR GENERAL 3V AP/LAT/L5-S1 RADEX SPINE LUMBOSACRAL 2/3 VIEWS Al Nichole APRN.MEAT STOCK CLERK [address] [place] [address] Phone: tel: fax: [place] [address] Referral ID Status Reason Start Date Expiration Date V isits Requested Visits Authorized [id number] Closed Auto-Generate d Referral 11/02/2024 12/02/2025 1 1 [facility] Chief Complaint and Reason for Visit [...] RT SHOULDER/RX HERE 9 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 Reason for Visit Cerebrovascular dise ase [...] Will Yes October 24 10:54pm Power of Refrigeration Service Inspector Yes October 24, 2021 10:54pm Documents on File Type Date Recorded Patient Presser Automatic Expl anation Advance Directive(s) 05/29/2020 7:38 AM Advance Directive Response Recorded Date/ Time Advance Directives Yes July 07, 2019 12:06pm Living Will Yes October 24 10:54pm Power of Refrigeration Service Inspector Yes October 24, 2021 10:54pm Advance Directive Response Recorded Date/ Time Advance Directives on File No Octob er 2018 12:06pm Advance Directives Yes April 09 11:51am Living Will Yes April 09, 2022 11:51am Power of Refrigeration Service Inspector Yes April 09 11:51am Documents on File Type Date Recorded Patient Presser Automatic Expl anation Advance Directive(s) 05/29/2020 7:38 AM Advance Directive Response Recorded Date/ Time Name of Medical Power of Refrigeration Service Inspector Kylee Maki August 17, 2022 12:19am Advance Directives Yes April 09 10:51am Living Will Yes August 17 12:19am Power of Refrigeration Service Inspector Yes August 17, 2022 12:19am Advance Directive Response Recorded Date/ Time Advance Directives on File No Octob er 2018 11:06am Name of Medical Power of Refrigeration Service Inspector Kylee Figtrevin August 17, 2022 12:19am Advance Directives Yes April 09 10:51am Living Will Yes August 17 12:19am Power of Refrigeration Service Inspector Yes August 17, 2022 12:19am Advance Directive Response Recorded Date/ Time Name of Medical Power of Refrigeration Service Inspector April 08, 2023 2:22pm Advance Directives Yes April 09 11:51am Living Will Yes April 08, 2023 2:22pm Power of Refrigeration Service Inspector Yes April 08 2:22pm Advance Directive Response Recorded Date/ Time Advance Directives on File No Octob er 2018 12:06pm Name of Medical Power of Refrigeration Service Inspector April 08, 2023 2:22pm Advance Directives Yes April 09 11:51am Living Will Yes April 08, 2023 2:22pm Power of Refrigeration Service Inspector Yes April 08 2:22pm Advance Directive Response Recorded Date/ Time Advance Directives on File No Octob er 2018 12:06pm Name of Medical Power of Refrigeration Service Inspector April 08, 2023 2:22pm Name of Medical Power of Refrigeration Service Inspector Kylee Figtrevin April 25, 2023 4:41pm Advance Directives Yes April 09 11:51am Living Will Yes April 25 4:41pm Power of Refrigeration Service Inspector Yes April 25, 023 4:41pm Advance Directive Response Recorded Date/ Time Advance Directives on File No Octob er 2018 11:06am Name of Medical Power of Refrigeration Service Inspector April 08, 2023 1:22pm Name of Medical Power of Refrigeration Service Inspector Kylee Figtrevin April 25, 2023 3:41pm Advance Directives Yes April 09 10:51am Living Will Yes April 25 3:41pm Power of Refrigeration Service Inspector Yes April 25, 023 3:41pm Advance Directive Response Recorded Date/ Time Name of Medical Power of Refrigeration Service Inspector roxann maki July 23, 2023 9:22am Advance Directives Yes April 09 10:51am Living Will Yes July 23 9:22am Power of Refrigeration Service Inspector Yes July 23, 2023 9:22am Name of Medical Power of Refrigeration Service Inspector Kylee Figtrevin April 25, 2023 3:41pm Advance Directive Response Recorded Date/ Time Name of Medical Power of Refrigeration Service Inspector roxann ramírez figtrevin July 23, 2023 9:22am Advance Directives Yes September 22, 2023 9:08am Living Will No September 22 9:08am Power of Refrigeration Service Inspector No September 22 024 9:08am Advance Directive Response Recorded Date/ Time Advance Directives on File No Octob er 2018 11:06am Name of Medical Power of Refrigeration Service Inspector roxann ramírez figtrevin July 23, 2023 9:22am Advance Directives Yes September 22, 2023 9:08am Living Will No September 22 9:08am Power of Refrigeration Service Inspector No September 22 9:08am Advance Directive Response Recorded Date/ Time Advance Directives on File No Octob er 2018 11:06am Advance Directives Yes September 22, 2023 9:08am Living Will No November 21, 2023 9:07pm Power of Refrigeration Service Inspector No November 20 9:07pm Advance Directive Response Recorded Date/ Time Advance Directives on File No Octob er 2018 12:06pm Name of Medical Power of Refrigeration Service Inspector Kylee Figge November 22, 2023 2:20am Advance Directives Yes September 22, 2023 10:08am Living Will Yes November 22, 2023 2:20am Power of Refrigeration Service Inspector Yes November 21 2:20am Advance Directive Response Recorded Date/ Time Advance Directives on File No Octob er 2018 12:06pm Name of Medical Power of Refrigeration Service Inspector Kylee Figge November 22, 2023 2:20am Name of Medical Power of Refrigeration Service Inspector KYLEE FIGGE December 08, 2023 8:33pm Advance Directives Yes September 22, 2023 10:08am Living Will Yes December 08, 2023 8:33pm Power of Refrigeration Service Inspector Yes December 07 8:33pm Advance Directive Response Recorded Date/ Time Advance Directives on File No Octob er 2018 12:06pm Name of Medical Power of Refrigeration Service Inspector Kylee Figge November 22, 2023 2:20am Name of Medical Power of Refrigeration Service Inspector KYLEE FIGGE December 08, 2023 8:33pm Name of Medical Power of Refrigeration Service Inspector Kylee Maki January 23, 2024 2:31pm Advance Directives Yes September 22, 2023 10:08am Living Will Yes January 23, 2024 2 :31pm Power of Refrigeration Service Inspector Yes January 23, 2024 2:31pm Advance Directive Response Recorded Date/ Time Name of Medical Power of Refrigeration Service Inspector roxann maki July 23, 2023 9:22am Advance Directives Yes April 09 10:51am Living Will No August 29 023 12:17pm Power of Refrigeration Service Inspector No August 29, 2023 12:17pm Date Activated Date Inactivated Comments 08/19/2013 4:37 PM 08/21/2013 4:18 PM Advance Directive Response Recorded Date/ Time Living Will Yes April 25 4:41pm Do you have a Healthcare Power of Refrigeration Service Inspector? Yes April 25, 2023 4:41pm Advance Directives on File No Junob 2018 12:06pm Living Will Yes October 020 5:40pm Do you have a Healthcare Power of Refrigeration Service Inspector? Yes November 12, 2019 5:40pm Living Will Yes October 30, 025 9:07pm Do you have a Healthcare Power of Refrigeration Service Inspector? Yes October 30, 2024 9:07pm Name of Medical Power of Refrigeration Service Inspector October 30, 2024 9:07pm Advance Directives Yes [...] unspecified type Procedures CONSULT TO UROLOGY OFFICE/OUTPATIENT [facility] 60-74 MINUTES Rochelle Hackett MD [address] [place] [id number] Referral ID Status Reason Start Date Expiration Date Visits Requested Visits Authorized [id number] Authorized PCP Requested Referral 11/14/2022 11/14/2023 1 1 Specialty Diagnoses / Procedures Referred By Contac t Referred To Contact Orthopedics Diagnoses Chronic pain of right knee Procedures CONSULT TO ORTHOPAEDICS OFFICE/OUTPATIENT [facility] 60-74 MINUTES Al Nichole, 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 [address] [place] [phone] Referral ID Status Reason Start Date Expiration Date Visits Requested Visits Authorized [id number] Authorized PCP Requested Referral 07/08/2024 1 1 Specialty Diagnoses / Procedures Referred By Contac t Referred To Contact CT IMAGING Diagnoses TIA (transient ischemic attack) Aphasia Ocular migraine Procedures CT BRAIN WO IVCON CT HEAD/BRAIN W/O CONTRAST MATERIAL Irish Warren, 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 [address] [place] [phone] [place] [address] Referral ID Status Reason Start Date Expiration Date V isits Requested Visits Authorized [id number] Closed Auto-Generate d Referral 11/02/2023 12/01/2024 1 1 Specialty Diagnoses / Procedures Referred By Contac t Referred To Contact Diagnoses Urinary incontinence, unspecified type Procedures CONSULT TO FEMALE UROLOGY/URO GYNECOLOGY OFFICE/OUTPATIENT [facility] 60 MINUTES Sara Rangel, BEET TOPPER.SPACE ENGINEER [address] [place] [phone] Referral ID Status Reason Start Date Expiration Date Visits Requested Visits Authorized [id number] Authorized PCP Requested Referral 12/15/2023 12/14/2024 1 1 Specialty Diagnoses / Procedures Referred By Contac t Referred To Contact Gerontology Diagnoses Mild cognitive impairment Procedures CONSULT TO GERIATRICS OFFICE/OUTPATIENT [facility] MDM 60 MINUTES Al Nichole APRN.CNP [address] [place] [address] Referral ID Status Reason Start Date Expiration Date Visits Requested Visits Authorized [id number] Authorized PCP Requested Referral 04/13/2024 04/12/2025 1 1 Specialty Diagnoses / Procedures Referred By Contac t Referred To Contact Diagnoses Sleep apnea, unspecified type Procedures CONSULT TO SLEEP MEDICINE - ADULT OFFICE/OUTPATIENT [facility] MDM 60 MINUTES Rochelle Hackett MD [address] [place] [address] Referral ID Status Reason Start Date Expiration Date Visits Requested Visits Authorized [id number] Authorized PCP Requested Referral 07/21/2024 07/21/2025 1 [...] or prosecute any alcohol or drug abuse patient.[facility] the event this information is protected by the Federal Confidentiality of Alcohol and Drug Abuse Patient Records regulations: The Federal rules restrict any use of the information to criminally investigate or prosecute any alcohol or drug abuse patient.[facility] the event this information is protected by the Federal Confidentiality of Alcohol and Drug Abuse Patient Records regulations: The Federal rules restrict any use of the information to criminally investigate or prosecute any alcohol or drug abuse patient.[facility] the event this information is protected by the Federal Confidentiality of Alcohol and Drug Abuse Patient Records regulations: The Federal rules restrict any use of the information to criminally investigate or prosecute any alcohol or drug abuse patient.[facility] the event this information is protected by the Federal Confidentiality of Alcohol and Drug Abuse Patient Records regulations: The Federal rules restrict any use of the information to criminally investigate or prosecute any alcohol or drug abuse patient.[facility] the event this information is protected by the Federal Confidentiality of Alcohol and Drug Abuse Patient Records regulations: The Federal rules restrict any use of the information to criminally investigate or prosecute any alcohol or drug abuse patient.[facility] the event this information is protected by the Federal Confidentiality of Alcohol and Drug Abuse Patient Records regulations: The Federal rules restrict any use of the information to criminally investigate or prosecute any alcohol or drug abuse patient.[facility] the event this information is protected by the Federal Confidentiality of Alcohol and Drug Abuse Patient Records regulations: The Federal rules restrict any use of the information to criminally investigate or prosecute any alcohol or drug abuse patient.[facility] the event this information is protected by the Federal Confidentiality of Alcohol and Drug Abuse Patient Records regulations: The Federal rules restrict any use of the information to criminally investigate or prosecute any alcohol or drug abuse patient.[facility] Hospital[facility] the event this information is protected by the Federal Confidentiality of Alcohol and Drug Abuse Patient Records regulations: The Federal rules restrict any use of the information to criminally investigate or prosecute any alcohol or drug abuse patient.[facility] Hospital[facility] the event this information is protected by the Federal Confidentiality of Alcohol and Drug Abuse Patient Records regulations: The Federal rules restrict any use of the information to criminally investigate or prosecute any alcohol or drug abuse patient.[facility] Hospital[facility] the event this information is protected by the Federal Confidentiality of Alcohol and Drug Abuse Patient Records regulations: The Federal rules restrict any use of the information to criminally investigate or prosecute any alcohol or drug abuse patient.[facility] HospitalIn the event this information is protected by the Federal Confidentiality of Alcohol and Drug Abuse Patient Records regulations: The Federal rules restrict any use of the information to criminally investigate or prosecute any alcohol or drug abuse patient.[facility] HospitalIn the event this information is protected by the Federal Confidentiality of Alcohol and Drug Abuse Patient Records regulations: The Federal rules restrict any use of the information to criminally investigate or prosecute any alcohol or drug abuse patient.[facility] HospitalIn the event this information is protected by the Federal Confidentiality of Alcohol and Drug Abuse Patient Records regulations: The Federal rules restrict any use of the information to criminally investigate or prosecute any alcohol or drug abuse patient.[facility] HospitalIn the event this information is protected by the Federal Confidentiality of Alcohol and Drug Abuse Patient Records regulations: The Federal rules restrict any use of the information to criminally investigate or prosecute any alcohol or drug abuse patient.[facility] HospitalIn the event this information is protected by the Federal Confidentiality of Alcohol and Drug Abuse Patient Records regulations: The Federal rules restrict any use of the information to criminally investigate or prosecute any alcohol or drug abuse patient.[facility] HospitalIn the event this information is protected by the Federal Confidentiality of Alcohol and Drug Abuse Patient Records regulations: The Federal rules restrict any use of the information to criminally investigate or prosecute any alcohol or drug abuse patient.[facility] HospitalIn the event this information is protected by the Federal Confidentiality of Alcohol and Drug Abuse Patient Records regulations: The Federal rules restrict any use of the information to criminally investigate or prosecute any alcohol or drug abuse patient.[facility] HospitalIn the event this information is protected by the Federal Confidentiality of Alcohol and Drug Abuse Patient Records regulations: The Federal rules restrict any use of the information to criminally investigate or prosecute any alcohol or drug abuse patient.[facility] HospitalIn the event this information is protected by the Federal Confidentiality of Alcohol and Drug Abuse Patient Records regulations: The Federal rules restrict any use of the information to criminally investigate or prosecute any alcohol or drug abuse patient.[facility] HospitalIn the event this information is protected by the Federal Confidentiality of Alcohol and Drug Abuse Patient Records regulations: The Federal rules restrict any use of the information to criminally investigate or prosecute any alcohol or drug abuse patient.[facility] HospitalIn the event this information is protected by the Federal Confidentiality of Alcohol and Drug Abuse Patient Records regulations: The Federal rules restrict any use of the information to criminally investigate or prosecute any alcohol or drug abuse patient.[facility] HospitalIn the event this information is protected by the Federal Confidentiality of Alcohol and Drug Abuse Patient Records regulations: The Federal rules restrict any use of the information to criminally investigate or prosecute any alcohol or drug abuse patient.[facility] HospitalIn the event this information is protected by the Federal Confidentiality of Alcohol and Drug Abuse Patient Records regulations: The Federal rules restrict any use of the information to criminally investigate or prosecute any alcohol or drug abuse patient.[facility] HospitalIn the event this information is protected by the Federal Confidentiality of Alcohol and Drug Abuse Patient Records regulations: The Federal rules restrict any use of the information to criminally investigate or prosecute any alcohol or drug abuse patient.[facility] HospitalIn the event this information is protected by the Federal Confidentiality of Alcohol and Drug Abuse Patient Records regulations: The Federal rules restrict any use of the information to criminally investigate or prosecute any alcohol or drug abuse patient.[facility] HospitalIn the event this information is protected by the Federal Confidentiality of Alcohol and Drug Abuse Patient Records regulations: The Federal rules restrict any use of the information to criminally investigate or prosecute any alcohol or drug abuse patient.[facility] HospitalIn the event this information is protected by the Federal Confidentiality of Alcohol and Drug Abuse Patient Records regulations: The Federal rules restrict any use of the information to criminally investigate or prosecute any alcohol or drug abuse patient.[facility] HospitalIn the event this information is protected by the Federal Confidentiality of Alcohol and Drug Abuse Patient Records regulations: The Federal rules restrict any use of the information to criminally investigate or prosecute any alcohol or drug abuse patient.[facility] HospitalIn the event this information is protected by the Federal Confidentiality of Alcohol and Drug Abuse Patient Records regulations: The Federal rules restrict any use of the information to criminally investigate or prosecute any alcohol or drug abuse patient.[facility] HospitalIn the event this information is protected by the Federal Confidentiality of Alcohol and Drug Abuse Patient Records regulations: The Federal rules restrict any use of the information to criminally investigate or prosecute any alcohol or drug abuse patient.[facility] HospitalIn the event this information is protected by the Federal Confidentiality of Alcohol and Drug Abuse Patient Records regulations: The Federal rules restrict any use of the information to criminally investigate or prosecute any alcohol or drug abuse patient.[facility] HospitalIn the event this information is protected by the Federal Confidentiality of Alcohol and Drug Abuse Patient Records regulations: The Federal rules restrict any use of the information to criminally investigate or prosecute any alcohol or drug abuse patient.[facility] HospitalIn the event this information is protected by the Federal Confidentiality of Alcohol and Drug Abuse Patient Records regulations: The Federal rules restrict any use of the information to criminally investigate or prosecute any alcohol or drug abuse patient.[facility] HospitalIn the event this information is protected by the Federal Confidentiality of Alcohol and Drug Abuse Patient Records regulations: The Federal rules restrict any use of the information to criminally investigate or prosecute any alcohol or drug abuse patient.[facility] HospitalIn the event this information is protected by the Federal Confidentiality of Alcohol and Drug Abuse Patient Records regulations: The Federal rules restrict any use of the information to criminally investigate or prosecute any alcohol or drug abuse patient.[facility] HospitalIn the event this information is protected by the Federal Confidentiality of Alcohol and Drug Abuse Patient Records regulations: The Federal rules restrict any use of the information to criminally investigate or prosecute any alcohol or drug abuse patient.[facility] HospitalIn the event this information is protected by the Federal Confidentiality of Alcohol and Drug Abuse Patient Records regulations: The Federal rules restrict any use of the information to criminally investigate or prosecute any alcohol or drug abuse patient.[facility] HospitalIn the event this information is protected by the Federal Confidentiality of Alcohol and Drug Abuse Patient Records regulations: The Federal rules restrict any use of the information to criminally investigate or prosecute any alcohol or drug abuse patient.[facility] HospitalIn the event this information is protected by the Federal Confidentiality of Alcohol and Drug Abuse Patient Records regulations: The Federal rules restrict any use of the information to criminally investigate or prosecute any alcohol or drug abuse patient.[facility] HospitalIn the event this information is protected by the Federal Confidentiality of Alcohol and Drug Abuse Patient Records regulations: The Federal rules restrict any use of the information to criminally investigate or prosecute any alcohol or drug abuse patient.[facility] HospitalIn the event this information is protected by the Federal Confidentiality of Alcohol and Drug Abuse Patient Records regulations: The Federal rules restrict any use of the information to criminally investigate or prosecute any alcohol or drug abuse patient.[facility] HospitalIn the event this information is protected by the Federal Confidentiality of Alcohol and Drug Abuse Patient Records regulations: The Federal rules restrict any use of the information to criminally investigate or prosecute any alcohol or drug abuse patient.[facility] HospitalIn the event this information is protected by the Federal Confidentiality of Alcohol and Drug Abuse Patient Records regulations: The Federal rules restrict any use of the information to criminally investigate or prosecute any alcohol or drug abuse patient.[facility] HospitalIn the event this information is protected by the Federal Confidentiality of Alcohol and Drug Abuse Patient Records regulations: The Federal rules restrict any use of the information to criminally investigate or prosecute any alcohol or drug abuse patient.[facility] HospitalIn the event this information is protected by the Federal Confidentiality of Alcohol and Drug Abuse Patient Records regulations: The Federal rules restrict any use of the information to criminally investigate or prosecute any alcohol or drug abuse patient.[facility] HospitalIn the event this information is protected by the Federal Confidentiality of Alcohol and Drug Abuse Patient Records regulations: The Federal rules restrict any use of the information to criminally investigate or prosecute any alcohol or drug abuse patient.[facility] HospitalIn the event this information is protected by the Federal Confidentiality of Alcohol and Drug Abuse Patient Records regulations: The Federal rules restrict any use of the information to criminally investigate or prosecute any alcohol or drug abuse patient.[facility] HospitalIn the event this information is protected by the Federal Confidentiality of Alcohol and Drug Abuse Patient Records regulations: The Federal rules restrict any use of the information to criminally investigate or prosecute any alcohol or drug abuse patient.[facility] HospitalIn the event this information is protected by the Federal Confidentiality of Alcohol and Drug Abuse Patient Records regulations: The Federal rules restrict any use of the information to criminally investigate or prosecute any alcohol or drug abuse patient.[facility] HospitalIn the event this information is protected by the Federal Confidentiality of Alcohol and Drug Abuse Patient Records regulations: The Federal rules restrict any use of the information to criminally investigate or prosecute any alcohol or drug abuse patient.[facility] HospitalIn the event this information is protected by the Federal Confidentiality of Alcohol and Drug Abuse Patient Records regulations: The Federal rules restrict any use of the information to criminally investigate or prosecute any alcohol or drug abuse patient.[facility] HospitalIn the event this information is protected by the Federal Confidentiality of Alcohol and Drug Abuse Patient Records regulations: The Federal rules restrict any use of the information to criminally investigate or prosecute any alcohol or drug abuse patient.[facility] HospitalIn the event this information is protected by the Federal Confidentiality of Alcohol and Drug Abuse Patient Records regulations: The Federal rules restrict any use of the information to criminally investigate or prosecute any alcohol or drug abuse patient.[facility] HospitalIn the event this information is protected by the Federal Confidentiality of Alcohol and Drug Abuse Patient Records regulations: The Federal rules restrict any use of the information to criminally investigate or prosecute any alcohol or drug abuse patient.[facility] HospitalIn the event this information is protected by the Federal Confidentiality of Alcohol and Drug Abuse Patient Records regulations: The Federal rules restrict any use of the information to criminally investigate or prosecute any alcohol or drug abuse patient.[facility] HospitalIn the event this information is protected by the Federal Confidentiality of Alcohol and Drug Abuse Patient Records regulations: The Federal rules restrict any use of the information to criminally investigate or prosecute any alcohol or drug abuse patient.[facility] HospitalIn the event this information is protected by the Federal Confidentiality of Alcohol and Drug Abuse Patient Records regulations: The Federal rules restrict any use of the information to criminally investigate or prosecute any alcohol or drug abuse patient.[facility] HospitalIn the event this information is protected by the Federal Confidentiality of Alcohol and Drug Abuse Patient Records regulations: The Federal rules restrict any use of the information to criminally investigate or prosecute any alcohol or drug abuse patient.[facility] HospitalIn the event this information is protected by the Federal Confidentiality of Alcohol and Drug Abuse Patient Records regulations: The Federal rules restrict any use of the information to criminally investigate or prosecute any alcohol or drug abuse patient.[facility] HospitalIn the event this information is protected by the Federal Confidentiality of Alcohol and Drug Abuse Patient Records regulations: The Federal rules restrict any use of the information to criminally investigate or prosecute any alcohol or drug abuse patient.[facility] HospitalIn the event this information is protected by the Federal Confidentiality of Alcohol and Drug Abuse Patient Records regulations: The Federal rules restrict any use of the information to criminally investigate or prosecute any alcohol or drug abuse patient.[facility] HospitalIn the event this information is protected by the Federal Confidentiality of Alcohol and Drug Abuse Patient Records regulations: The Federal rules restrict any use of the information to criminally investigate or prosecute any alcohol or drug abuse patient.[facility] HospitalIn the event this information is protected by the Federal Confidentiality of Alcohol and Drug Abuse Patient Records regulations: The Federal rules restrict any use of the information to criminally investigate or prosecute any alcohol or drug abuse patient.[facility] HospitalIn the event this information is protected by the Federal Confidentiality of Alcohol and Drug Abuse Patient Records regulations: The Federal rules restrict any use of the information to criminally investigate or prosecute any alcohol or drug abuse patient.[facility] HospitalIn the event this information is protected by the Federal Confidentiality of Alcohol and Drug Abuse Patient Records regulations: The Federal rules restrict any use of the information to criminally investigate or prosecute any alcohol or drug abuse patient.[facility] HospitalIn the event this information is protected by the Federal Confidentiality of Alcohol and Drug Abuse Patient Records regulations: The Federal rules restrict any use of the information to criminally investigate or prosecute any alcohol or drug abuse patient.[facility] HospitalIn the event this information is protected by the Federal Confidentiality of Alcohol and Drug Abuse Patient Records regulations: The Federal rules restrict any use of the information to criminally investigate or prosecute any alcohol or drug abuse patient.[facility] HospitalIn the event this information is protected by the Federal Confidentiality of Alcohol and Drug Abuse Patient Records regulations: The Federal rules restrict any use of the information to criminally investigate or prosecute any alcohol or drug abuse patient.[facility] HospitalIn the event this information is protected by the Federal Confidentiality of Alcohol and Drug Abuse Patient Records regulations: The Federal rules restrict any use of the information to criminally investigate or prosecute any alcohol or drug abuse patient.[facility] HospitalIn the event this information is protected by the Federal Confidentiality of Alcohol and Drug Abuse Patient Records regulations: The Federal rules restrict any use of the information to criminally investigate or prosecute any alcohol or drug abuse patient.[facility] HospitalIn the event this information is protected by the Federal Confidentiality of Alcohol and Drug Abuse Patient Records regulations: The Federal rules restrict any use of the information to criminally investigate or prosecute any alcohol or drug abuse patient.[facility] HospitalIn the event this information is protected by the Federal Confidentiality of Alcohol and Drug Abuse Patient Records regulations: The Federal rules restrict any use of the information to criminally investigate or prosecute any alcohol or drug abuse patient.[facility] HospitalIn the event this information is protected by the Federal Confidentiality of Alcohol and Drug Abuse Patient Records regulations: The Federal rules restrict any use of the information to criminally investigate or prosecute any alcohol or drug abuse patient.[facility] HospitalIn the event this information is protected by the Federal Confidentiality of Alcohol and Drug Abuse Patient Records regulations: The Federal rules restrict any use of the information to criminally investigate or prosecute any alcohol or drug abuse patient.[facility] HospitalIn the event this information is protected by the Federal Confidentiality of Alcohol and Drug Abuse Patient Records regulations: The Federal rules restrict any use of the information to criminally investigate or prosecute any alcohol or drug abuse patient.[facility] HospitalIn the event this information is protected by the Federal Confidentiality of Alcohol and Drug Abuse Patient Records regulations: The Federal rules restrict any use of the information to criminally investigate or prosecute any alcohol or drug abuse patient.[facility] HospitalIn the event this information is protected by the Federal Confidentiality of Alcohol and Drug Abuse Patient Records regulations: The Federal rules restrict any use of the information to criminally investigate or prosecute any alcohol or drug abuse patient.[facility] HospitalIn the event this information is protected by the Federal Confidentiality of Alcohol and Drug Abuse Patient Records regulations: The Federal rules restrict any use of the information to criminally investigate or prosecute any alcohol or drug abuse patient.[facility] HospitalIn the event this information is protected by the Federal Confidentiality of Alcohol and Drug Abuse Patient Records regulations: The Federal rules restrict any use of the information to criminally investigate or prosecute any alcohol or drug abuse patient.[facility] Reason for Visit (unrecogniz ed section [...] ED Follow-up ER follow up from at [facility] for Diarrhea Reason Comments Medicare Wellness Exam [...] NEW HIGH MDM 60-74 MINUTES Al Nichole APRN.MEAT STOCK CLERK [address] [place] [address] Referral ID Status Reason Start Date Expiration Date V isits Requested Visits Authorized [id number] Closed PCP Requested Referral 07/09/2023 07/08/2024 1 [...] CT HEAD/BRAIN W/O CONTRAST MATERIAL Irish Warren APRN.MEAT STOCK CLERK [address] [place] [address] [place] [address] Referral ID Status Reason Start Date Expiration Date V isits Requested Visits Authorized [id number] Closed Auto-Generate d Referral 11/02/2023 12/01/2024 1 1 Reason Comments Hospital F/U Reason Comments 6 mo follow up Reason Comments Orders Reason Comments Established Patient Pain Ingrown Toenail Gait Problem Reason Comments Geriatric Consult Reason Comments Established Patient Pain Ingrown Toenail Reason Comments Follow Up Ingrown Nail Reason Comments Psg Check In (Adult) Reason Comments Establish Care Had sleep study at [facility] facility Specialty Diagnoses / Procedures Referred By Phong antonio Referred To Contact Sleep Medicine Diagnoses Sleep apnea, unspecified type Rochelle Hackett MD [address] [place] [address] Jose Montenegro DO [address] [place] [address] [place] [address] Referral ID Status Reason Start Date Expiration Date V isits Requested Visits Authorized [id number] Pending Review 08/02/2024 08/27/2025 1 1 Reason Onset Date Comments Population Health Navigation Outreach 10/11/2024 [place]/Workbench/ACO Reason Comments Recheck [facility] ER follow up, fa ll back pain Reason Comments Pain Management Referral Reason Comments Orders [facility] Reason Comments Recheck Reason Onset Date Comments Population Health Navigation Outreach 12/09/2024 Aco high risk attempt # 1 Reason Comments F/U 3 Month Reason Onset Date Comments Refill Request 02/22/2025 Care Teams (unrecognized sec tion and content) Alarm Investigator Relationship Specialty Start Date End Date Rochelle Hackett MD [address] [place], [place] [address] PCP - General Internal Medicine 08/17/15 Alarm Investigator Relationship Specialty Start Date End Date Rochelle Hackett MD [address] [place] [address] PCP - General Internal Medicine 08/17/15 Alarm Investigator Relationship Specialty Start Date End Date Rochelle Hackett MD [address] [place] [address] PCP - General Internal Medicine 08/17/15 Alarm Investigator Relationship Specialty Start Date End Date Rochelle Hackett MD [address] [place] [address] PCP - General Internal Medicine 08/17/15 Alarm Investigator Relationship Specialty Start Date End Date Rochelle Hackett MD [address] [place] [address] PCP - General Internal Medicine 08/17/15 Alarm Investigator Relationship Specialty Start Date End Date Rochelle Hackett MD [address] [place] [address] PCP - General Internal Medicine 08/17/15 Alarm Investigator Relationship Specialty Start Date End Date Rochelle Hackett MD [address] [place] [address] PCP - General Internal Medicine 08/17/15 Alarm Investigator Relationship Specialty Start Date End Date Rochelle Hackett MD [address] [place] [address] PCP - General Internal Medicine 08/17/15 Alarm Investigator Relationship Specialty Start Date End Date Rochelle Hackett MD [address] [place] [address] PCP - General Internal Medicine 08/17/15 Alarm Investigator Relationship Specialty Start Date End Date Rochelle Hackett MD [address] [place] [address] PCP - General Internal Medicine 08/17/15 Alarm Investigator Relationship Specialty Start Date End Date Rochelle Hcakett MD [address] [place] [address] PCP - General Internal Medicine 08/17/15 Alarm Investigator Relationship Specialty Start Date End Date Rochelle Hackett MD [address] [place] [address] PCP - General Internal Medicine 08/17/15 Alarm Investigator Relationship Specialty Start Date End Date Rochelle Hackett MD [address] [place] [address] PCP - General Internal Medicine 08/17/15 Alarm Investigator Relationship Specialty Start Date End Date Rochelle Hackett MD [address] [place] [address] PCP - General Internal Medicine 08/17/15 Alarm Investigator Relationship Specialty Start Date End Date Rochelle Hackett MD [address] [place] [address] PCP - General Internal Medicine 08/17/15 Alarm Investigator Relationship Specialty Start Date End Date Rochelle Hackett MD [address] [place] [address] PCP - General Internal Medicine 08/17/15 Alarm Investigator Relationship Specialty Start Date End Date Rochelle Hackett MD [address] [place] [address] PCP - General Internal Medicine 08/17/15 Team [...] STEARNS Attending Provider, Referring Provide r Active Alarm Investigator Relationship Specialty Start Date End Date Rochelle Hackett MD [address] [place], [place] [address] PCP - General Internal Medicine 08/17/15 Team [...] Dr. Denzel Boone DO Emergency Provider Active Alarm Investigator Relationship Specialty Start Date End Date Rochelle Hackett MD [address] [place], [place] [id number] PCP - General Internal Medicine 08/17/15 Alarm Investigator Relationship Specialty Start Date End Date Rochelle Hackett MD [address] [place], [place] [address]231 PCP - General Internal Medicine 08/17/15 Team Status: Inactive Member Role Status Dates Dr. Rochelle Hackett MD Primary Care Provider, Referring Provider Active Tomeka Ascencio DIALYSIS CHIEF EQUIPMENT TECHNICIAN, DIALYSIS CHIEF EQUIPMENT TECHNICIAN-C Attending Provider Active Team Status: Inactive Member Role Status Dates Dr. Rochelle Hackett MD Primary Care Provider Active Dr. Erick Blanca MD Attending Provider Active Team Status: Inactive Member Role Status Dates Dr. Rochelle Hackett MD Primary Care Provider Active Dr. Denzel Boone DO Attending Provider, Emergency P alphonso Active Alarm Investigator Relationship Specialty Start Date End Date Rochelle Hackett MD [address] [facility] [place] [address] PCP - General Internal Medicine 08/17/15 Alarm Investigator Relationship Specialty Start Date End Date Rochelle Hackett MD [address] [facility] [address] PCP - General Internal Medicine 08/17/15 Alarm Investigator Relationship Specialty Start Date End Date Rochelle Hackett MD [address] [facility] [address] PCP - General Internal Medicine 08/17/15 Team Status: Inactive Member Role Status Dates Dr. Rochelle Hackett MD Primary Care Provider, Referring Provider Active Carolyn Garcia DIALYSIS CHIEF EQUIPMENT TECHNICIAN, DIALYSIS CHIEF EQUIPMENT TECHNICIAN-C Attending Provider Active Team Status: Inactive Member Role Status Dates Dr. Rochelle Hackett MD Primary Care Provider Active Dr. Tejinder Mora MD Emergency Provider Active Alarm Investigator Relationship Specialty Start Date End Date Rochelle Hackett MD [address] [facility] [address] PCP - General Internal Medicine 08/17/15 Alarm Investigator Relationship Specialty Start Date End Date Rochelle Hackett MD [address] [facility] [address] PCP - General Internal Medicine 08/17/15 Team [...] MD Primary Care Provider Active Tomeka Ascencio DIALYSIS CHIEF EQUIPMENT TECHNICIAN, DIALYSIS CHIEF EQUIPMENT TECHNICIAN-C Attending Provider, Referring Provider Active Team Status: Inactive Member Role Status Dates Dr. Rochelle Hackett MD Primary Care Provider Active Dr. Tejinder Mora MD Attending Provider, Emergency Provi aline Active Alarm Investigator Relationship Specialty Start Date End Date Rochelle Hackett MD [address] [facility] [address] PCP - General Internal Medicine 08/17/15 Team Status: Inactive Member Role Status Dates Dr. Rochelle Hackett MD Primary Care Provider Active Dr. Erick Blanca MD Attending Provider, Referring Provider Active Dr. Eagle Enciso MD Other Provider Active Team Status: Inactive Member Role Status Dates Dr. Rochelle Hackett MD Primary Care Provider Active Tanesha Britt PA, PA Attending Provider, Referr ing Provider Active Alarm Investigator Relationship Specialty Start Date End Date Rochelle Hackett MD [address] [facility] [address] PCP - General Internal Medicine 08/17/15 Alarm Investigator Relationship Specialty Start Date End Date Rochelle Hackett MD [address] [facility] [address] PCP - General Internal Medicine 08/17/15 Team Status: Active Member Role Status Dates Dr. Rochlele Hackett MD Primary Care Provider Active Dr. Brian Cooley MD Attending Provider Active Team Status: Active Member Role Status Dates Dr. Rochelle Hackett MD Primary Care Provider Active Tanesha Britt PA, PA Referring Provider, Other Provider Active Dr. Brian Cooley MD Attending Provider Active Team Status: Active Member Role Status Dates Dr. Rochelle Hackett MD Primary Care Provider Active Handy Russell DIALYSIS CHIEF EQUIPMENT TECHNICIAN, DIALYSIS CHIEF EQUIPMENT TECHNICIAN-C Attending Provider Active Team Status: Inactive Member Role Status Dates Dr. Rochelle Hackett MD Primary Care Provider Active Bakari Dietrich MD Attending Provider, Emergency Provid er Active Alarm Investigator Relationship Specialty Start Date End Date Rochelle Hackett MD [address] [place], [place] [address]191 PCP - General Internal Medicine 08/17/15 Team [...] Dr. Erick Blanca MD Attending Provider Active Alarm Investigator Relationship Specialty Start Date End Date Rochelle Hackett MD [address] [place] [address] PCP - General Internal Medicine 08/17/15 Alarm Investigator Relationship Specialty Start Date End Date Rochelle Hackett MD [address] [place], [place] [id number] PCP - General Internal Medicine 08/17/15 Alarm Investigator Relationship Specialty Start Date End Date Rochelle Hackett MD [address] [place], [place] [address] PCP - General Internal Medicine 08/17/15 Alarm Investigator Relationship Specialty Start Date End Date Rochelle Hackett MD [address] [place] [address] PCP - General Internal Medicine 08/17/15 Alarm Investigator Relationship Specialty Start Date End Date Rochelle Hackett MD [address] [place] [address] PCP - General Internal Medicine 08/17/15 Team Status: Active Member Role Status Dates Dr. Rochelle Hackett MD Primary Care Provider Active Dr. Viet Ortez DO Emergency Provider Active Dr. Michelle Hunt MD Admit Provider, Attending Prov ider Active Team Status: Active Member Role Status Dates Dr. Rochelle Hackett MD Primary Care Provider Active Dr. Viet Ortez DO Emergency Provider Active Dr. Michelle Hutn MD Admit Provider, Other Provider Active Dr. [...] Dr. Mayur Tabares DO Emergency Provider Active Alarm Investigator Relationship Specialty Start Date End Date Rochelle Hackett MD [address] [place] [address] PCP - General Internal Medicine 08/17/15 Team Status: Inactive Member Role Status Dates Dr. Rochelle Hackett MD Primary Care Provider Active Dr. Mayur Tabares DO Attending Provider, Emergency P alphonso Active Team Status: Inactive Member Role Status Dates Dr. Rochelle Hackett MD Primary Care Provider Active Dr. Vinh Colon MD Emergency Provider Active Alarm Investigator Relationship Specialty Start Date End Date Rochelle Hackett MD [address] [place] [address] PCP - General Internal Medicine 08/17/15 Alarm Investigator Relationship Specialty Start Date End Date Rochelle Hackett MD [address] [facility] [address] PCP - General Internal Medicine 08/17/15 Alarm Investigator Relationship Specialty Start Date End Date Rochelle Hackett MD [address] [facility] [address] PCP - General Internal Medicine 08/17/15 Alarm Investigator Relationship Specialty Start Date End Date Rochelle Hackett MD [address] [facility] [address] PCP - General Internal Medicine 08/17/15 Alarm Investigator Relationship Specialty Start Date End Date Rochelle Hackett MD [address] [facility] [address] PCP - General Internal Medicine 08/17/15 Alarm Investigator Relationship Specialty Start Date End Date Rochelle Hackett MD [address] [facility] [address] PCP - General Internal Medicine 08/17/15 Alarm Investigator Relationship Specialty Start Date End Date Rochelle Hackett MD [address] [facility] [address] PCP - General Internal Medicine 08/17/15 Alarm Investigator Relationship Specialty Start Date End Date Rochelle Hackett MD [address] [place] [address] PCP - General Internal Medicine 08/17/15 Alarm Investigator Relationship Specialty Start Date End Date Rochelle Hackett MD [address] [place] [address] PCP - General Internal Medicine 08/17/15 Alarm Investigator Relationship Specialty Start Date End Date Rochelle Hackett MD [address] [place] [address] PCP - General Internal Medicine 08/17/15 Team Status: Inactive Member Role Status Dates Dr. Rochelle Hackett MD Primary Care Provider Active Dr. Jatinder Fan MD Emergency Provider Active Alarm Investigator Relationship Specialty Start Date End Date Rochelle Hackett MD [address] [place] [address] PCP - General Internal Medicine 10/29/17 Brian Cooley MD [address] [place] [phone] Cardiovascular Disease 07/19/13 Zak Jara MD [address] [place] [address] Residential Sales Rep Clinical Cardiac Electrophysiology 07/18/13 Alarm Investigator Relationship Specialty Start Date End Date Rochelle Hackett MD [address] [place] [address] PCP - General Internal Medicine 08/17/15 Jane Michelle PATreC [address] [place] [address] Satellite Tv Technician Installer Family Medicine 08/21/24 Al Nichole APRN.CNP [address] [place] [address] Satellite Tv Technician Installer Internal Medicine 08/21/24 Sofía Baig PA-C [address] [place] [address] Satellite Tv Technician Installer Family [facility] 08/21/24 Alarm Investigator Relationship Specialty Start Date End Date Rochelle Hackett MD [address] [place], [place] [address]41 PCP - General Internal Medicine 08/17/15 Jane Michelle PA-C [address] [place] [address] Satellite Tv Technician Installer Family [facility] 08/21/24 Al Nichole APRN.MEAT STOCK CLERK [address] [place], [place] [address]61 Satellite Tv Technician Installer Internal Medicine 08/21/24 Sofía Baig PA-C [address] [place], [place] [address]91 Satellite Tv Technician [facility] 08/21/24 Anayeli Pettit, TRELL [address] [place] [address] Inspector Heating And Refrigeration 09/02/24 Alarm Investigator Relationship Specialty Start Date End Date Rochelle Hackett MD [address] [place], [place] 663851 PCP - General Internal Medicine 10/29/17 Brian Cooley MD [facility] [place] [phone] Cardiovascular Disease 07/19/13 Zak Jara MD [address] [place] [address] Residential Sales Rep Clinical Cardiac Electrophysiology 07/18/13 Alarm Investigator Relationship Specialty Start Date End Date Rochelle Hackett MD [address] [place] [address] PCP - General Internal Medicine 08/17/15 Jane Michelle PA-C [address] [place] [address] Satellite Tv Technician Installer Family Medicine 08/21/24 Al Nichole APRN.MEAT STOCK CLERK [address] [place] [address] Satellite Tv Technician Installer Internal Medicine 08/21/24 Sofía Baig PA-C [address] [place] [address] Satellite Tv Technician Installer Family Medicine 08/21/24 Anayeli Pettit, TRELL [address] [place] [address] Inspector Heating And Refrigeration 09/02/24 Alarm Investigator Relationship Specialty Start Date End Date Rochelle Hackett MD [address] [place] [address] PCP - General Internal Medicine 08/17/15 Jane Michelle PA-C [address] [place] [address] Satellite Tv Technician Installer Family Medicine 08/21/24 Al Nichole APRN.MEAT STOCK CLERK [address] [place] [address] Satellite Tv Technician Installer Internal Medicine 08/21/24 Sofía Baig PA-C [address] [place] [address] Satellite Tv Technician Installer Family Medicine 08/21/24 Anayeli Pettit, TRELL [address] [place] [address] Inspector Heating And Refrigeration 09/02/24 Alarm Investigator Relationship Specialty Start Date End Date Rochelle Hackett MD [address] [place] [address] PCP - General Internal Medicine 08/17/15 Jane Michelle PA-C [address] [place] [address] Satellite Tv Technician Installer Family Medicine 08/21/24 Al Nichole APRN.MEAT STOCK CLERK [address] [place] [address] Satellite Tv Technician Installer Internal Medicine 08/21/24 Sofía Baig PA-C [address] [place] [address] Satellite Tv Technician Installer Family [facility] 08/21/24 Anayeli Pettit RN [address] [place] [address] Inspector Heating And Refrigeration 09/02/24 Alarm Investigator Relationship Specialty Start Date End Date Rochelle Hackett MD [address] [place] [address] PCP - General Internal Medicine 08/17/15 Jane Michelle PA-C [address] [place] [address] Satellite Tv Technician Installer Family Medicine 08/21/24 Al Nichole APRN.MEAT STOCK CLERK [address] [place] [address] Satellite Tv Technician Installer Internal Medicine 08/21/24 Sofía Baig PA-C [address] [place] [address] Satellite Tv Technician Installer Family Medicine 08/21/24 Anayeli Pettit, TRELL [address] [place] [address] Inspector Heating And Refrigeration 09/02/24 Alarm Investigator Relationship Specialty Start Date End Date Rochelle Hackett MD [address] [place] [address] PCP - General Internal Medicine 08/17/15 Jane Michelle PA-C [address] [place], [place] [id number] Satellite Tv Technician Installer Family Medicine 08/21/24 Al Nichole APRN.MEAT STOCK CLERK [address] [place] [address] Satellite Tv Technician Installer Internal Medicine 08/21/24 Sofía Baig PA-C [address] [place] [address] Satellite Tv Technician Installer Family Medicine 08/21/24 Anayeli Pettit RN [address] [place] [address] Inspector Heating And Refrigeration 09/02/24 Alarm Investigator Relationship Specialty Start Date End Date Rochelle Hackett MD [address] [place] [address] PCP - General Internal Medicine 08/17/15 Jane Michelle PA-C [address] [place] [address] Satellite Tv Technician Installer Family Medicine 08/21/24 Al Nichole APRN.MEAT STOCK CLERK [address] [place] [address] Satellite Tv Technician Installer Internal Medicine 08/21/24 Sofía Baig PA-C [address] [place] [address] Satellite Tv Technician Installer Family Medicine 08/21/24 Anayeli Pettit, TRELL [address] [place] [address] Inspector Heating And Refrigeration 09/02/24 Alarm Investigator Relationship Specialty Start Date End Date Rochelle Hackett MD [address] [place] [address] PCP - General Internal Medicine 08/17/15 Jane Michelle PA-C [address] [place] [address] (Fax) Satellite Tv Technician Installer Family Medicine 08/21/24 Al Nichole APRN.CNP [address] [place] [address] Satellite Tv Technician Installer Internal Medicine 08/21/24 Sofía Baig PA-C [address] [place] [address] Satellite Tv Technician Installer Family Medicine 08/21/24 Anayeli Pettit RN [address] [place] [address] Inspector Heating And Refrigeration 09/02/24 Alarm Investigator Relationship Specialty Start Date End Date Rochelle Hackett MD [address] [place], [place] [id number] PCP - General Internal Medicine 08/17/15 Jane Michelle PA-C [address] [place] [address] Satellite Tv Technician Installer Family Medicine 08/21/24 Al Nichole APRN.MEAT STOCK CLERK [address] [facility] [place] [address] Satellite Tv Technician Installer Internal Medicine 08/21/24 Sofía Baig PA-C [address] [facility] [address] Satellite Tv Technician Installer Family [facility] 08/21/24 Anayeli Pettit, TRELL [address] [place], [place] [id number] Inspector Heating And Refrigeration 09/02/24 Alarm Investigator Relationship Specialty Start Date End Date Rochelle Hackett MD [address] [facility] [address] PCP - General Internal Medicine 08/17/15 Al Nichole APRN.MEAT STOCK CLERK [address] [facility] [place] [address] Satellite Tv Technician Installer Internal Medicine 08/21/24 Anayeli Pettit, TRELL [address] [place] [address] Inspector Heating And Refrigeration 09/02/24 Alarm Investigator Relationship Specialty Start Date End Date Rochelle Hackett MD [address] [facility] [address] PCP - General Internal Medicine 08/17/15 Al Nichole APRN.MEAT STOCK CLERK [address] [facility] [place] [address] [facility] Internal Medicine 08/21/24 Anayeli Pettit, TRELL [address] [place], [place] [id number] Inspector Heating And Refrigeration 09/02/24 Team Status: Active Member Role Status [...] Provider Active Start: September 20, 2024 Dr. Carlos Sheth MD Referring Provider Active Start: September [...] Attending Provider Active Start: December 20, 2024 Alarm Investigator Relationship Specialty Start Date End Date Rochelle Hackett MD [address] [facility] [address] PCP - General Internal Medicine 08/17/15 Jane Michelle PA-C [address] [place] [address] Satellite Tv Technician Installer Family Medicine 08/21/24 12/04/24 Al Nichole APRN.MEAT STOCK CLERK [address] [facility] [place] [address] Satellite Tv Technician Installer Internal Medicine 08/21/24 Sofía Baig PA-C [address] [place] [address] Satellite Tv Technician Installer Family Medicine 08/21/24 12/04/24 Anayeli Pettit, TRELL [address] [place], [place] [id number] Inspector Heating And Refrigeration 09/02/24 Alarm Investigator Relationship Specialty Start Date End Date Rochelle Hackett MD [address] [place] [address] PCP - General Internal Medicine 08/17/15 Al Nichole APRN.MEAT STOCK CLERK [address] [place] [address] Satellite Tv Technician Installer Internal Medicine 08/21/24 Anayeli Pettit RN [address] [place] [address] Inspector Heating And Refrigeration 09/02/24 Alarm Investigator Relationship Specialty Start Date End Date Rochelle Hackett MD [address] [facility] [address] PCP - General Internal Medicine 08/17/15 Al Nichole APRN.MEAT STOCK CLERK [address] [place] [address] Satellite Tv Technician Installer Internal Medicine 08/21/24 Anayeli Pettit, RN [address] [place] [address] Inspector Heating And Refrigeration 09/02/24 INFORMATION SOURCE (unrecogn ized section and content) DATE CREATED AUTHOR 07/18/2024 [facility] DATE CREATED AUTHOR AUTHOR'S ORGANIZ ATION 01/16/2025 [facility] DATE CREATED AUTHOR AUTHOR'S ORGANIZ ATION 02/15/2025 [facility] DATE CREATED AUTHOR AUTHOR'S ORGANIZ ATION 02/22/2025 [facility] FOR RECORDS PERTAINING TO PATIENTS WHO ARE [...] BE BASED ON THE PRIMARY CLINICAL RECORDS. [employer] provides no warranty or guarantee of the accuracy or completeness of information in this document.
[2025-02-24] MEDS: Metoprolol(XL)Succ 25 MG Tablet PO ×2 (02:09→21:54)
[2025-02-24] MEDS: APIXABAN 2.5 MG TABLET (WCH) PO ×3 (02:10→21:54)
[2025-02-24] MEDS: Dofetilide 250 MCG Capsule PO ×3 (02:10→21:54)
[2025-02-24] MEDS: 0.9% Saline Lock 10 ML Syringe IV ×2 (02:17→05:54)
[2025-02-24] MEDS: Metoclopramide 10 MG/2 ML Vial 5 MG IV (02:17)
[2025-02-24 05:05] LABS: Absolute Lymphocyte Count 1.52 X10^3/uL (0.83-4.51); Absolute Neutrophil Count 1.6 X10^3/uL (2.0-7.7); Basophil# 0.02 X10^3/uL; Basophil% 0.5 % (0-1); Eosinophil# 0.01 X10^3/uL; Eosinophils% 0.3 % (0-5); Hematocrit 31.4 % (37-47); Lymphocyte # 1.52 X10^3/ul (0.83-4.51); Lymphocyte % 40.3 % (19-41); Mean Corpuscular Hgb 33.2 pg (27.0-32.0); Mean Corpuscular Volume 94.9 fL (81-99); Mean Platelet Vol. 9.4 fl (6.2-12.0); Monocyte# 0.61 X10^3/uL; Monocyte% 16.2 % (0-10); NRBC Flagged by Analyzer 0 % (0-5); Neutrophil % 42.4 % (47-70); Platelet Count 210 K/mm3 (150-450); RBC Distribution Width CV 12.6 % (11.6-14.6); RBC Distribution Width SD 43.8 fl (35.1-43.9); Red Blood Count 3.31 M/mm3 (4.2-5.4); White Blood Count 3.8 K/mm3 (4.4-11.0)
[2025-02-24] MEDS: Sodium Chloride 1 GM Tablet PO ×3 (05:53→21:54)
[2025-02-24 05:54] LABS: ALB/GLOB Ratio 1.4 RATIO (0.9-2.4); AST(SGOT) 30 U/L (<=31); Alanine Aminotransfer ALT/SGPT 21 U/L (<=34); Albumin, Serum 3.2 g/dL (3.4-4.8); Alkaline Phosphatase 84 U/L (35-104); Anion Gap 11 (5-15); BUN 14 mg/dL (4-19); Calcium,Total 7.9 mg/dL (7.6-11.0); Carbon Dioxide 20.5 mmol/L (21.0-32.0); Chloride 94 mmol/L (98-108); Creatinine, Serum 0.68 mg/dL (0.70-1.20); EST Glomerular Filtration Rate 86 (>60); Estimated Creatinine Clearance 45.59 ml/min (50-250); Globulin 2.3 g/dL (2.2-4.2); Glucose 108 mg/dL (70-99); Magnesium 1.9 mg/dL (1.5-2.2); Phosphorus 2.9 mg/dL (2.7-4.5); Potassium 3.3 mmol/L (3.3-5.1); Protein, Total 5.6 g/dL (5.9-8.4); Sodium Level 126 mmol/L (133-145); Total Bilirubin 0.53 mg/dL (0.00-1.30)
[2025-02-24] MEDS: Acetaminophen 325 MG Tablet 650 MG PO ×2 (09:02→21:55)
[2025-02-24] MEDS: Magnesium Chloride 64 MG Delay Rel.Tablet 128 MG PO (09:03)
[2025-02-24] MEDS: Calcium (Elemental) 500 MG Tablet PO (09:03)
[2025-02-24] MEDS: Cholecalciferol (VIT D3) 25 MCG TABLET (1,000 UNITS) 50 MCG PO (09:03)
[2025-02-24] MEDS: Ascorbic Acid 500 MG Tablet PO (09:03)
[2025-02-24] MEDS: Midodrine HCl 5 MG Tablet 2.5 MG PO (09:03)
[2025-02-24] MEDS: Metoprolol(XL)Succ 25 MG Tablet 12.5 MG PO (09:04)
[2025-02-24] MEDS: Senna/Docusate Sodium 1 Tablet 2 TABLET PO (09:08)
[2025-02-24] MEDS: guaiFENesin 1,200 MG Tablet 1200 MG PO ×2 (10:17→21:55)
--- NOTE | 2025-02-24 16:24 | CASEMGMT ---
Care Management Face to Face with patient for initial transition planning/care coordination assessment.? Patient?s Tony at bedside, and remained present with patient?s permission.? This check writer introduced self and role of Care Management at [facility]. Patient lying in bed, alert and oriented. Patient willing to participate in assessment and is able to answer all questions appropriately.? Care providers and pharmacy verified. Admitting Diagnosis: Nausea and vomiting - Hyponatremia Other diagnosis history:?? Hx of A-flutter, breast cancer, TIA, SIADH, chronic hyponatremia PCP: ??Dr. Brandt Specialists: ?Dr. Cooley/Cardiology, ?Dr. Blanca/Neurology,? Tasha Baker/HEAD PORTER,? Dr Enciso/Nephrology, Dr. Nguyễn or his LOG DRIVER/Oncology Preferred Pharmacy: ??[facility] Insurance: MCR A & B;? ?has secondary Prescription Benefit:? Yes Living Will/HPOA: ?Both HCPOA and LW ? on file at [facility].?? is primary and son is second. LNOK: ?Lives with , and has a son who lives in [place]. Living Arrangements: ??Lives with in a one story home, however there is a basement where the laundry is.?? One step inside the house, but reports for the most part the living area is one floor.?? Ramped entrance per prior CM/SW assessment.? ADL/IADLs:? Patient manages dressing, bathing, toileting and medication management on own.? assists with other household needs including cooking and laundry.? Transportation: ?? assists DME: Grab bars in bathrooms, shower chair/tub chair, walker, pulse ox, blood pressure monitor.?? NO glucometer, O2, CPAP/BIPAP.?? HHC/Outpatient Therapy: ?No history of HHC.??? Has been to [facility] many times for outpatient PT. SNF/RU: No hx of SNF.??? Hx of [facility] RU in 2012 after falling down a flight of concrete stairs.?? Community Resources:? No community resources.? Reports to have a good support system of friends locally.? ? Patient goals: Patient wishes to discharge home with .?? Currently denies need for additional referrals a this time.? Mentioned that would be good to get back into outpatient PT, but to also know all the exercises to do, ?just have to do it.?? No immediate needs identified or requested.?? Educated patient and Care Management team remains available should discharge planning needs arise prior to or at discharge.? PT/OT evaluations completed ? 6 clicks = 24 (can go home alone).?? Disposition Plan: Home with assist.? CM team remains available should d/c needs arise.? -XIOMARA Florez?
--- NOTE | 2025-02-24 16:29 | PN_ITS ---
Subjective Subjective Patient seen and examined with her nurse by her bedside. She had no complaints and says she felt much better this morning. Her was by her bedside. She has not had any more nausea and vomiting. She denies any fever or chills. Review of systems otherwise negative. Objective Data Objective Data Vital Signs: Vital Signs Temp Pulse Resp BP Pulse Ox O2 Del Method 98.3 F 73 16 150/63 H 99 Room Air 02/24/25 13:26 02/24/25 13:26 02/24/25 13:26 02/24/25 13:26 02/24/25 13:26 02/24/25 13:26 Oxygen Delivery Method Room Air Weight: 119 lb 7.849 oz Body Mass Index (BMI) 18.7 Intake & Output: Intake and Output for Last 24 Hours 02/22/25 02/23/25 02/24/25 23:59 23:59 23:59 Intake Total 1000 / 1000 1100 / 1100 Balance 1000 / 1000 1100 / 1100 Lab / Micro Data 02/24/25 04:40 02/24/25 04:40 Labs: Laboratory Results - last 24 hr 02/23/25 16:30: WBC 3.4 L, RBC 3.95 L, Hgb 13.2, Hct 37.5, MCV 94.9, MCH 33.4 H, MCHC 35.2, RDW Std Deviation 44.3 H, RDW Coeff of Idania 12.6, Plt Count 233, MPV 9.4, Immature Gran % (Auto) 0.300, Neut % (Auto) 56.3, Lymph % (Auto) 35.5, [place] % (Auto) 7.3, Eos % (Auto) 0.0, Baso % (Auto) 0.6, Absolute Neuts (auto) 1.9 L, Absolute Lymphs (auto) 1.21, Nucleated RBC % 0 02/23/25 18:06: Urine Color Straw, Urine Clarity Clear, Urine pH 7.0, Ur Specific [place] 1.010, Urine Protein 30 H, Urine Glucose (UA) 100 H, Urine Ketones 15 H, Urine Occult Blood 50 H, Urine Nitrite Negative, Urine Bilirubin Negative, Urine Urobilinogen Normal, Ur Leukocyte Esterase Negative, Urine RBC 0-5 SEEN, Urine WBC 0-5 SEEN, Ur Squamous Epith Cells 0-5 SEEN, Urine Bacteria 0 SEEN, Urine Mucus 0 SEEN 02/23/25 18:30: Sodium 124 L, Potassium 3.8, Chloride 90 L, Carbon Dioxide 21.3, Anion Gap 13, BUN 14, Creatinine 0.68 L, Estim Creat Clear Calc 47.36 L, Est GFR (MDRD) Non-Af 86, BUN/Creatinine Ratio 20.7 H, Glucose 130 H, Calcium 7.8 02/23/25 21:12: Sodium 124 L 02/24/25 04:40: WBC 3.8 L, RBC 3.31 L, Hgb 11.0 L, Hct 31.4 L, MCV 94.9, MCH 33.2 H, MCHC 35.0, RDW Std Deviation 43.8, RDW Coeff of Idania 12.6, Plt Count 210, MPV 9.4, Immature Gran % (Auto) 0.300, Neut % (Auto) 42.4 L, Lymph % (Auto) 40.3, [place] % (Auto) 16.2 H, Eos % (Auto) 0.3, Baso % (Auto) 0.5, Absolute Neuts (auto) 1.6 L, Absolute Lymphs (auto) 1.52, Nucleated RBC % 0, Sodium 126 L, Potassium 3.3, Chloride 94 L, Carbon Dioxide 20.5 L, Anion Gap 11, BUN 14, C reatinine 0.68 L, Estim Creat Clear Calc 45.59 L, Est GFR (MDRD) Non-Af 86, BUN/Creatinine Ratio 20.0, Glucose 108 H, Calcium 7.9, Phosphorus 2.9, Magnesium 1.9, Total Bilirubin 0.53, AST 30, ALT 21, Alkaline Phosphatase 84, Total Protein 5.6 L, Albumin 3.2 L, Globulin 2.3, Albumin/Globulin Ratio 1.4, TSH 4.260 H Radiography Diagnostic Testing: Radiology Impression Abdomen/Pelvis CT 02/23/25 17:13 IMPRESSION: 1. No acute abdominopelvic finding. 2. Trace bilateral pleural effusions. Reading Location: [facility] Physical Exam Const alert, oriented x3 and no apparent distress Constitutional Narrative: thin General Appearance: cooperative HEENT normocephalic, head/scalp atraumatic and moist oral mucous membranes Eyes PERRL and EOMs intact bilaterally Neck supple and no JVD Lymph Lymphatic: no lymphedema noted Resp normal respiratory effort, normal air movement and clear to auscultation bilaterally Cardio regular rate, regular rhythm, S1 normal heart sound, S2 normal heart sound and no murmurs GI normal to inspection, nondistended, normoactive bowel sounds, soft to palpation, non-tender and non-distended Extremity normal capillary refill, no clubbing, cyanosis or edema and no calf tenderness General Extremity: no tenderness to palpation of joints or extremities Skin General Skin Exam: no breakdown Neuro no focal motor deficits Neuro Narrative: moves all extremities spontaneously Motor Exam: general weakness Psych thought process normal and cooperative Appearance: appropriate Assessment & Plan Assessment/Plan (1) Nausea and vomiting: (2) Hyponatremia: PLAN: Plan #Hyponatremia * has a history of SIADH * had nausea and vomiting which is now resulved. * Sodium has improved to 126. Was 124 on admission. * Has a history of acute on chronic nausea and vomiting and is believed she has a sensitive vestibular system and they therefore easily develop nausea and vomiting. * on salt tablets, increased to 3x daily. * fluid restriction to 1250cc daily * her baseline sodium is ~ 131 * #Nausea and vomiting: improving. Will monitor # Paroxysmal A-fib: On dofetilide and beta-elsa. On Eliquis #Chronic orthostatic hypotension: on midodrine #Chronic L1 compression fracture: has known osteopenia. PT./OT On board. Fall precautions # #History of GERD: Stable. Currently not on PPI #DVT prophylaxis: On Eliquis Total time spent on evaluation and management of patient, reviewing chart and specialist notes, discussing plan with patient and her , discussion with nursing and ancillary staff as well as documentation: 31 mins Charges/Coding Visit Charges Inpatient E&M: 13779 PROLNG IP/OBS E/M EA 15 MIN
--- NOTE | 2025-02-24 23:16 | PCM.HOSP.N ---
Hospitalist Note Called by nursing staff as patient was complaining of an irregular heartbeat. Heart rate was detected between 117 and 150. Patient has known history of paroxysmal atrial fibrillation and seemingly has reverted back into A-fib. She is on Tikosyn and metoprolol 25 mg p.o. Systolic blood pressures currently 150. Will give IV metoprolol 5 mg x 1 dose. Patient denied chest pain but was just concerned about her heart rate. Will place on telemetry and monitor.
[2025-02-25] VITALS (10 sets, daily range): BP systolic 130–155; BP diastolic 68–92; PULSE 72–110; RESP 15–18; TEMP 36.6–38.6; O2SAT 97–98; BMI 19.1
[2025-02-25] MEDS: Potassium Chloride Oral Tablet 20 MEQ 40 MEQ PO (00:05)
[2025-02-25] MEDS: Metoprolol Tartrate 5 MG/5 ML Vial IV (00:05)
[2025-02-25] MEDS: Digoxin 250 MCG/ML Ampul 500 MCG IV (02:15)
[2025-02-25] MEDS: 0.9% Saline Lock 10 ML Syringe IV (02:19)
[2025-02-25] MEDS: Famotidine 20 MG Tablet PO (02:37)
[2025-02-25] MEDS: Sodium Chloride 1 GM Tablet PO ×3 (06:01→21:55)
[2025-02-25] MEDS: Acetaminophen 325 MG Tablet 650 MG PO ×2 (06:03→16:29)
[2025-02-25 06:44] LABS: Absolute Lymphocyte Count 0.93 X10^3/uL (0.83-4.51); Absolute Neutrophil Count 1.6 X10^3/uL (2.0-7.7); Basophil# 0.02 X10^3/uL; Basophil% 0.7 % (0-1); Hematocrit 34.1 % (37-47); Hemoglobin 12.3 g/dL (12.0-15.0); Lymphocyte # 0.93 X10^3/ul (0.83-4.51); Lymphocyte % 30.3 % (19-41); Mean Corp Hgb Conc 36.1 g/dL (32-36); Mean Corpuscular Hgb 33.5 pg (27.0-32.0); Mean Corpuscular Volume 92.9 fL (81-99); Mean Platelet Vol. 9.6 fl (6.2-12.0); Monocyte# 0.49 X10^3/uL; NRBC Flagged by Analyzer 0 % (0-5); Neutrophil # 1.62 X10^3/uL (2.7-7.7); Neutrophil % 52.7 % (47-70); Platelet Count 210 K/mm3 (150-450); RBC Distribution Width CV 12.6 % (11.6-14.6); RBC Distribution Width SD 43.1 fl (35.1-43.9); Red Blood Count 3.67 M/mm3 (4.2-5.4); White Blood Count 3.1 K/mm3 (4.4-11.0)
[2025-02-25 07:00] LABS: Anion Gap 9 (5-15); BUN 10 mg/dL (4-19); BUN/Creat Ratio 15.2 RATIO (10-20); Carbon Dioxide 20.7 mmol/L (21.0-32.0); Chloride 93 mmol/L (98-108); Creatinine, Serum 0.64 mg/dL (0.70-1.20); EST Glomerular Filtration Rate 88 (>60); Glucose 99 mg/dL (70-99); Potassium 4.3 mmol/L (3.3-5.1); Sodium Level 123 mmol/L (133-145)
[2025-02-25] MEDS: guaiFENesin 1,200 MG Tablet 1200 MG PO ×2 (10:14→21:56)
[2025-02-25] MEDS: Pantoprazole Sodium 40 MG Tablet PO (10:15)
[2025-02-25] MEDS: Calcium (Elemental) 500 MG Tablet PO (10:15)
[2025-02-25] MEDS: Ascorbic Acid 500 MG Tablet PO (10:15)
[2025-02-25] MEDS: APIXABAN 2.5 MG TABLET (WCH) PO ×2 (10:15→21:55)
[2025-02-25] MEDS: Cholecalciferol (VIT D3) 25 MCG TABLET (1,000 UNITS) 50 MCG PO (10:15)
[2025-02-25] MEDS: Magnesium Chloride 64 MG Delay Rel.Tablet 128 MG PO (10:15)
[2025-02-25] MEDS: Dofetilide 250 MCG Capsule PO ×2 (10:16→21:56)
[2025-02-25] MEDS: Metoprolol(XL)Succ 25 MG Tablet 12.5 MG PO (10:17)
--- NOTE | 2025-02-25 12:06 | EKG12_ITS ---
Test Reason : RHYTHM CHECK Blood Pressure : */* mmHG Vent. Rate : 69 BPM Atrial Rate : 69 BPM P-R Int : 256 ms QRS Dur : 98 ms QT Int : 410 ms P-R-T Axes : 86 6 62 degrees QTcB Int : 439 ms Sinus rhythm with 1st degree A-V block Incomplete right bundle branch block Borderline ECG When compared with ECG of 25-Jun-2024 14:04, No significant change was found Confirmed by STEPHANIE THAO, JOSE ([id number]), editor producer AMAYA COVARRUBIAS ([id number]) on 02/28/2025 8:29:07 AM Referred By: Confirmed By: JOSE BROWN MD
--- NOTE | 2025-02-25 14:15 | PN_ITS ---
Subjective Subjective Patient seen and examined. Patient looks quite frail. His sodium has gone down to 123 today. She denies any nausea or vomiting. She also had a fever overnight. She tested positive for parainfluenza yesterday. Review of systems is otherwise negative. Objective Data Objective Data Vital Signs: Vital Signs Temp Pulse Resp BP Pulse Ox O2 Del Method 99.0 F 81 18 140/73 H 97 Room Air 02/25/25 10:09 02/25/25 10:17 02/25/25 10:09 02/25/25 10:09 02/25/25 10:09 02/25/25 10:09 Oxygen Delivery Method Room Air Weight: 122 lb 2.177 oz Body Mass Index (BMI) 19.1 Intake & Output: Intake and Output for Last 24 Hours 02/23/25 02/24/25 02/25/25 23:59 23:59 23:59 Intake Total 1000 / 1000 1840 / 2040 200 / 200 Output Total 1600 / 1600 Balance 1000 / 1000 1840 / 2040 -1400 / -1400 Lab / Micro Data 02/25/25 06:01 02/25/25 06:01 Labs: Laboratory Results - last 24 hr 02/25/25 06:01: WBC 3.1 L, RBC 3.67 L, Hgb 12.3, Hct 34.1 L, MCV 92.9, MCH 33.5 H, MCHC 36.1 H, RDW Std Deviation 43.1, RDW Coeff of Idania 12.6, Plt Count 210, MPV 9.6, Immature Gran % (Auto) 0.300, Neut % (Auto) 52.7, Lymph % (Auto) 30.3, [place] % (Auto) 16.0 H, Eos % (Auto) 0.0, Baso % (Auto) 0.7, Absolute Neuts (auto) 1.6 L, Absolute Lymphs (auto) 0.93, Nucleated RBC % 0, Sodium 123 L, Potassium 4.3, Chloride 93 L, Carbon Dioxide 20.7 L, Anion Gap 9, BUN 10, Creatinine 0.64 L, Estim Creat Clear Calc 46.60 L, Est GFR (MDRD) Non-Af 88, BUN/Creatinine Ratio 15.2, Glucose 99, Calcium 8.0 Micro: Microbiology 02/24/25 13:29 Mucosa - Nasopharyngeal Respiratory Panel (PCR) - Final Parainfluenza 3 Physical Exam Const alert, oriented x3 and no apparent distress Constitutional Narrative: thin General Appearance: cooperative HEENT normocephalic, head/scalp atraumatic, hearing grossly normal bilaterally and moist oral mucous membranes Eyes PERRL, EOMs intact bilaterally and conjunctivae normal Eyes Narrative: No scleral icterus Neck supple and no JVD Neck Narrative: Trachea midline Lymph Lymphatic: no lymphedema noted Resp normal respiratory effort, normal air movement, no retractions, no use of accessory muscles and clear to auscultation bilaterally Cardio regular rate, regular rhythm, S1 normal heart sound, S2 normal heart sound and no murmurs GI normal to inspection, nondistended, normoactive bowel sounds, soft to palpation, non-tender and non-distended GI Narrative: Scaphoid abdomen Extremity normal capillary refill, no clubbing, cyanosis or edema and no calf tenderness General Extremity: no tenderness to palpation of joints or extremities Skin General Skin Exam: no breakdown Neuro oriented x3, moves all extremities and no focal motor deficits Neuro Narrative: moves all extremities spontaneously Speech: speech normal Motor Exam: general weakness Psych thought process normal, cooperative and affect normal Appearance: appropriate Mood & Affect: anxious Assessment & Plan Assessment/Plan (1) Nausea and vomiting: (2) Hyponatremia: PLAN: Plan #Hyponatremia * has a history of SIADH * had nausea and vomiting which is now resulved. * sodium has trended down to 123 today. * will consult nephrology. Discussed with Dr. Encarnacion and patient's sodium tablet to be increased from 1 g 3 times daily to 2 g 3 times daily. * Has a history of acute on chronic nausea and vomiting and is believed she has a sensitive vestibular system and they therefore easily develop nausea and vomiting. * fluid restriction to 1250cc daily * her baseline sodium is ~ 131 * * #Parainfluenza infection * Patient developed a fever and also had respiratory symptoms. Asthma has same symptoms. * Respiratory panel positive for parainfluenza infection. * Supportive treatment for now. P.o. Tylenol as needed and breathing treatments as needed. * #Nausea and vomiting: improving. Will monitor # Paroxysmal A-fib: On dofetilide and beta-elsa. On Eliquis #Chronic orthostatic hypotension: on midodrine #Chronic L1 compression fracture: has known osteopenia. PT./OT On board. Fall precautions # #History of GERD: Stable. Currently not on PPI #DVT prophylaxis: On Eliquis Charges/Coding Visit Charges Inpatient E&M: 87747 Subs Hosp L2
--- NOTE | 2025-02-25 16:52 | PCM.CONS.R ---
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 Patient presented to the hospital on 02/23/2025 with 1 day history of intractable nausea/vomiting. Nephrology is asked to see the patient because of acute on chronic hyponatremia. Hyponatremia. 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 Baseline serum sodium has been around 127 to 133 mmol/L. She is treated with salt tablet and fluid restriction. Patient presented to hospital on 02/23/2025 with serum sodium of 124 mmol/L. Serum sodium initially improved to 126 mmol/L on 02/24/2025. However, serum sodium decreased again today to 123 mmol/L. I suspect that worsening of hyponatremia is due to decreased oral solute intake in the setting of nausea/vomiting on presentation. Nausea can also increase ADH from baseline as well. There is no severe symptoms of hyponatremia, sodium is no need for hypertonic saline. For now, we should increase salt tablets to 2 g 3 times daily. Continue to limit fluid intake to 1.5 L/day or less. I encouraged patient to push oral protein intake. Solute from protein metabolism will help the kidney excrete water. Recheck serum sodium again tomorrow. 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 Patient presents to the hospital on 02/23/2025 with complaints of nausea/vomiting that started on the day of presentation. Patient has prior history of intermittent nausea/vomiting and is status post GI workup in the past without any clear diagnosis. Patient presented with serum sodium of 124 mmol/L on 02/23/2025. Serum sodium has decreased to 123 mmol/L today. Nephrology is asked see the patient because of acute on chronic hyponatremia. Baseline serum sodium has been around 127 to 133 mmol/L. Patient takes salt tablet 1 g 3 times daily. However, she has not been able to keep salt tablet down for 2 to 3 days prior to presentation. Patient feels better today. Her nausea has essentially resolved. However, oral intake has still been marginal. She denies headache or confusion. There is no dyspnea, orthopnea or PND. [facility] Medical History Motion sickness Adrenal insufficiency History of atrial flutter Breast pain, right History of breast cancer COVID-19 Chronic diarrhea Osteopenia 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 Lichen sclerosus Atrophic vaginitis TIA (transient ischemic attack) SIADH (syndrome of inappropriate ADH production) Anemia GERD (gastroesophageal reflux disease) Diverticulitis Migraine Osteopenia Nonrheumatic mitral (valve) prolapse Paroxysmal atrial fibrillation Ovarian cyst Compression fracture of L1 lumbar vertebra Paroxysmal atrial flutter Atrial flutter IBS (irritable bowel syndrome) history of blood transfusion 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) Chronic hyponatremia Home Medications ?Medication ?Instructions ?Recorded ?Last Taken ?Type Bilaterl knee high compression #2 ea 05/29/22 Unknown Rx stockings (10-20) calcium carbonate 600 mg PO DAILY 10/14/22 Unknown History cholecalciferol (vitamin D3) 10 2,000 unit PO DAILY supplement 10/14/22 Unknown History mcg (400 unit) capsule ondansetron 4 mg disintegrating 4 mg PO Q8H PRN PRN Nausea #10 tabs 01/23/24 Unknown Rx tablet ascorbate calcium (vitamin C) 500 500 mg PO QDAY 06/07/24 Unknown History mg tablet esomeprazole magnesium 40 mg See Rx Instructions .Route .COMPLEX 09/09/24 Unknown History capsule,delayed release dofetilide 250 mcg capsule 250 mcg PO BID #180 caps 10/06/24 Unknown Rx meclizine 25 mg PO Q6H PRN PRN dizziness, 10/30/24 Unknown History nausea midodrine 2.5 mg tablet 2.5 mg PO BID #180 tabs 11/08/24 Unknown Rx sodium chloride 1,000 mg soluble 1,000 mg PO DAILY PRN electrolyte 12/26/24 Unknown Rx tablet replenishment #30 tabs magnesium oxide 400 mg (241.3 mg 400 mg PO DAILY #90 tabs 01/30/25 Unknown Rx magnesium) tablet metoprolol succinate 25 mg 25 mg PO .COMPLEX #135 tabs 01/30/25 Unknown Rx tablet,extended release 24 hr apixaban 2.5 mg tablet 2.5 mg PO BID #180 TABLETS 02/22/25 Unknown Rx famotidine 20 mg tablet 20 mg PO QHS PRN PRN heartburn 02/24/25 Unknown History zoledronic acid 4 mg/5 mL IV 02/24/25 Unknown History intravenous solution Allergy/AdvReac Type Severity Reaction Status Date / Time cantaloupe Allergy Severe Anaphylaxis Verified 02/23/25 15:58 grass pollen Allergy Severe Unknown Verified 02/23/25 15:58 Penicillins Allergy Severe Anaphylaxis Verified 02/23/25 15:58 Sulfa (Sulfonamide Allergy Unknown Other Verified 02/23/25 15:58 Antibiotics) mold Allergy Unknown Verified 02/23/25 15:58 pollen extracts Allergy Unknown Verified 02/23/25 15:58 erythromycin base AdvReac Severe Unknown Verified 02/23/25 15:58 lansoprazole (From Prevacid) AdvReac Severe Nausea/Vom/ Verified 02/23/25 15:58 Diarrhea adhesive tape AdvReac Intermediate Rash Verified 02/23/25 15:58 Family History Father Unknown family medical history Mother Uterine cancer Thyroid disorder Kidney disease Hypertension CHF (congestive heart failure) Arthritis Surgical History History of cataract surgery History of colonoscopy (05/2019) History of esophagogastroduodenoscopy (EGD) (05/2019) History of left heart catheterization (09/2012) H/O left mastectomy History of radiofrequency ablation (RFA) procedure for cardiac arrhythmia (08/2013) History of removal of ovarian cyst H/O lymph node biopsy H/O breast biopsy History of dilation and curettage Social History household members: spouse Smoking Status: Never smoker alcohol intake: current alcohol intake frequency: holidays/special occasions only substance use type: does not use caffeine: Yes what type of physical activity do you participate in: walking and yoga frequency: 3-4 times per week seatbelt use: always do you feel safe at home: Yes additional social history: -Tony Patient and are both retired ROS ROS Narrative As per HPI, otherwise noncontributory Physical Exam Narrative General: Alert and oriented x3, NAD. HEENT: Normocephalic, atraumatic. Mucous membrane moist without erythema. PERRLA, EOMI. Hearing is intact. Neck: Supple, no JVD. Trachea is midline. No thyromegaly or lymphadenopathy. Cardiovascular: Normal S1, S2. No rubs, murmurs, or gallops. Respiratory: Lungs are clear to auscultation bilaterally. No wheezing, rhonchi, or rales. Abdomen: Normal bowel sounds, soft, nontender, no guarding or rebound, no organomegaly. Extremities: No clubbing, cyanosis, or edema. Musculoskeletal: Full passive range of motion, no joint swelling. Psychiatric: Normal mood and affect. Skin: Warm and dry, no rash. Neurologic: Cranial nerve II to XII are grossly intact. No focal neurologic deficits. Lab / Micro Data 02/25/25 06:01 02/25/25 06:01 Labs: Laboratory Results - last 24 hr 02/25/25 06:01: WBC 3.1 L, RBC 3.67 L, Hgb 12.3, Hct 34.1 L, MCV 92.9, MCH 33.5 H, MCHC 36.1 H, RDW Std Deviation 43.1, RDW Coeff of Idania 12.6, Plt Count 210, MPV 9.6, Immature Gran % (Auto) 0.300, Neut % (Auto) 52.7, Lymph % (Auto) 30.3, [place] % (Auto) 16.0 H, Eos % (Auto) 0.0, Baso % (Auto) 0.7, Absolute Neuts (auto) 1.6 L, Absolute Lymphs (auto) 0.93, Nucleated RBC % 0, Sodium 123 L, Potassium 4.3, Chloride 93 L, Carbon Dioxide 20.7 L, Anion Gap 9, BUN 10, Creatinine 0.64 L, Estim Creat Clear Calc 46.60 L, Est GFR (MDRD) Non-Af 88, BUN/Creatinine Ratio 15.2, Glucose 99, Calcium 8.0 Micro: Microbiology 02/24/25 13:29 Mucosa - Nasopharyngeal Respiratory Panel (PCR) - Final Parainfluenza 3
[2025-02-25] MEDS: Metoprolol(XL)Succ 25 MG Tablet PO (21:57)
[2025-02-25] MEDS: Senna/Docusate Sodium 1 Tablet 2 TABLET PO (22:17)
[2025-02-26] VITALS (8 sets, daily range): BP systolic 138–156; BP diastolic 62–72; PULSE 62–78; RESP 16–18; TEMP 36.4–37.4; O2SAT 95–98; BMI 18.9
[2025-02-26] MEDS: Sodium Chloride 1 GM Tablet PO (05:19)
[2025-02-26 07:30] LABS: Absolute Lymphocyte Count 1.34 X10^3/uL (0.83-4.51); Absolute Neutrophil Count 1.1 X10^3/uL (2.0-7.7); Basophil# 0.02 X10^3/uL; Basophil% 0.6 % (0-1); Eosinophil# 0.05 X10^3/uL; Eosinophils% 1.6 % (0-5); Hematocrit 32.8 % (37-47); Hemoglobin 11.9 g/dL (12.0-15.0); Lymphocyte # 1.34 X10^3/ul (0.83-4.51); Lymphocyte % 43.2 % (19-41); Mean Corp Hgb Conc 36.3 g/dL (32-36); Mean Corpuscular Hgb 33.9 pg (27.0-32.0); Mean Corpuscular Volume 93.4 fL (81-99); Mean Platelet Vol. 9.6 fl (6.2-12.0); Monocyte# 0.56 X10^3/uL; Monocyte% 18.1 % (0-10); NRBC Flagged by Analyzer 0 % (0-5); Neutrophil # 1.12 X10^3/uL (2.7-7.7); Neutrophil % 36.2 % (47-70); Platelet Count 176 K/mm3 (150-450); RBC Distribution Width CV 12.7 % (11.6-14.6); RBC Distribution Width SD 43.6 fl (35.1-43.9); Red Blood Count 3.51 M/mm3 (4.2-5.4); White Blood Count 3.1 K/mm3 (4.4-11.0)
[2025-02-26 07:50] LABS: Anion Gap 8 (5-15); BUN 13 mg/dL (4-19); BUN/Creat Ratio 17.3 RATIO (10-20); Calcium,Total 7.9 mg/dL (7.6-11.0); Carbon Dioxide 22.5 mmol/L (21.0-32.0); Chloride 97 mmol/L (98-108); Creatinine, Serum 0.73 mg/dL (0.70-1.20); EST Glomerular Filtration Rate 82 (>60); Estimated Creatinine Clearance 46.09 ml/min (50-250); Glucose 114 mg/dL (70-99); Potassium 3.7 mmol/L (3.3-5.1); Sodium Level 128 mmol/L (133-145)
--- NOTE | 2025-02-26 10:48 | PN_ITS ---
Subjective Subjective Patient seen and examined. She is feeling better today. She does have a bit more color to her face. She is still coughing. She is on room air. Sodium is up to 128 today. Review of systems otherwise negative. She has remained hemodynamically stable apart from her BP being elevated in the 150s systolic today. Objective Data Objective Data Vital Signs: Vital Signs Temp Pulse Resp BP Pulse Ox O2 Del Method 97.9 F 62 16 156/72 H 95 Room Air 02/26/25 05:18 02/26/25 05:18 02/26/25 05:18 02/26/25 05:18 02/26/25 07:43 02/26/25 07:43 Oxygen Delivery Method Room Air Weight: 120 lb 13.013 oz Body Mass Index (BMI) 18.9 Intake & Output: Intake and Output for Last 24 Hours 02/24/25 02/25/25 02/26/25 23:59 23:59 23:59 Intake Total 1840 / 2040 720 / 720 60 / 60 Output Total 1600 / 1600 Balance 1840 / 2040 -880 / -880 60 / 60 Lab / Micro Data 02/26/25 06:58 02/26/25 06:58 Labs: Laboratory Results - last 24 hr 02/26/25 06:58: WBC 3.1 L, RBC 3.51 L, Hgb 11.9 L, Hct 32.8 L, MCV 93.4, MCH 33.9 H, MCHC 36.3 H, RDW Std Deviation 43.6, RDW Coeff of Idania 12.7, Plt Count 176, MPV 9.6, Immature Gran % (Auto) 0.300, Neut % (Auto) 36.2 L, Lymph % (Auto) 43.2 H, [place] % (Auto) 18.1 H, Eos % (Auto) 1.6, Baso % (Auto) 0.6, Absolute Neuts (auto) 1.1 L, Absolute Lymphs (auto) 1.34, Nucleated RBC % 0, Sodium 128 L , Potassium 3.7, Chloride 97 L, Carbon Dioxide 22.5, Anion Gap 8, BUN 13, Creatinine 0.73, Estim Creat Clear Calc 46.09 L, Est GFR (MDRD) Non-Af 82, BUN/Creatinine Ratio 17.3, Glucose 114 H, Calcium 7.9 Micro: Microbiology 02/24/25 13:29 Mucosa - Nasopharyngeal Respiratory Panel (PCR) - Final Parainfluenza 3 Physical Exam Const alert, oriented x3 and no apparent distress Constitutional Narrative: thin General Appearance: cooperative HEENT normocephalic, head/scalp atraumatic, hearing grossly normal bilaterally and moist oral mucous membranes Eyes PERRL, EOMs intact bilaterally and conjunctivae normal Eyes Narrative: No scleral icterus Neck supple and no JVD Neck Narrative: Trachea midline Lymph Lymphatic: no lymphedema noted Resp normal respiratory effort, normal air movement, no retractions, no use of accessory muscles and clear to auscultation bilaterally Cardio regular rate, regular rhythm, S1 normal heart sound, S2 normal heart sound and no murmurs GI normal to inspection, nondistended, normoactive bowel sounds, soft to palpation, non-tender and non-distended GI Narrative: Scaphoid abdomen Extremity normal capillary refill, no clubbing, cyanosis or edema and no calf tenderness Extremity Narrative: Decreased lean muscle mass, 2+ pedal and radial pulses General Extremity: no tenderness to palpation of joints or extremities Neuro oriented x3, moves all extremities and no focal motor deficits Neuro Narrative: moves all extremities spontaneously Speech: speech normal Motor Exam: general weakness Psych thought process normal, cooperative and affect normal Appearance: appropriate Assessment & Plan Assessment/Plan (1) Nausea and vomiting: (2) Hyponatremia: PLAN: Plan #Hyponatremia * has a history of SIADH * had nausea and vomiting which is now resulved. * sodium is up to 128 today from 123 yesterday. * Has a history of acute on chronic nausea and vomiting and is believed she has a sensitive vestibular system and they therefore easily develop nausea and vomiting. * fluid restriction to 1250cc daily * her baseline sodium is ~ 131 * Sodium increased to 2 mg 3 times daily today. * #Parainfluenza infection * She did not have any fever overnight and has remained stable from respiratory standpoint. * Respiratory panel positive for parainfluenza infection. * Supportive treatment for now. P.o. Tylenol as needed and breathing treatments as needed. * #Nausea and vomiting: improving. Will monitor # Paroxysmal A-fib: On dofetilide and beta-elsa. On Eliquis #Chronic orthostatic hypotension: on midodrine #Chronic L1 compression fracture: has known osteopenia. PT./OT On board. Fall precautions # #History of GERD: Stable. Currently not on PPI #DVT prophylaxis: On Eliquis Disposition: Anticipate discharge by tomorrow. Charges/Coding Visit Charges Inpatient E&M: 29419 Subs Hosp L2
[2025-02-26] MEDS: Pantoprazole Sodium 40 MG Tablet PO (10:59)
[2025-02-26] MEDS: Ascorbic Acid 500 MG Tablet PO (10:59)
[2025-02-26] MEDS: Dofetilide 250 MCG Capsule PO ×2 (10:59→22:17)
[2025-02-26] MEDS: APIXABAN 2.5 MG TABLET (WCH) PO ×2 (10:59→22:21)
[2025-02-26] MEDS: Calcium (Elemental) 500 MG Tablet PO (10:59)
[2025-02-26] MEDS: guaiFENesin 1,200 MG Tablet 1200 MG PO ×2 (10:59→22:17)
[2025-02-26] MEDS: Metoprolol(XL)Succ 25 MG Tablet 12.5 MG PO (11:00)
[2025-02-26] MEDS: Magnesium Chloride 64 MG Delay Rel.Tablet 128 MG PO (11:00)
[2025-02-26] MEDS: Cholecalciferol (VIT D3) 25 MCG TABLET (1,000 UNITS) 50 MCG PO (11:00)
[2025-02-26] MEDS: Sodium Chloride 1 GM Tablet 2 GM PO ×2 (14:03→22:18)
[2025-02-26] MEDS: Metoprolol(XL)Succ 25 MG Tablet PO (22:17)
[2025-02-27 03:00] VITALS: PULSE 62
[2025-02-27 05:00] VITALS: BP 184/73; PULSE 64; RESP 16; TEMP 36.7; O2SAT 98; BMI 18.8
[2025-02-27] MEDS: Sodium Chloride 1 GM Tablet 2 GM PO (05:58)
[2025-02-27] MEDS: Senna/Docusate Sodium 1 Tablet 2 TABLET PO (05:59)
[2025-02-27 06:06] LABS: Absolute Lymphocyte Count 1.96 X10^3/uL (0.83-4.51); Absolute Neutrophil Count 1.7 X10^3/uL (2.0-7.7); Basophil# 0.02 X10^3/uL; Basophil% 0.5 % (0-1); Eosinophil# 0.09 X10^3/uL; Eosinophils% 2.1 % (0-5); Hematocrit 33.7 % (37-47); Hemoglobin 11.9 g/dL (12.0-15.0); Lymphocyte # 1.96 X10^3/ul (0.83-4.51); Lymphocyte % 45.4 % (19-41); Mean Corp Hgb Conc 35.3 g/dL (32-36); Mean Corpuscular Hgb 33.1 pg (27.0-32.0); Mean Corpuscular Volume 93.9 fL (81-99); Mean Platelet Vol. 9.8 fl (6.2-12.0); Monocyte# 0.58 X10^3/uL; Monocyte% 13.4 % (0-10); NRBC Flagged by Analyzer 0 % (0-5); Neutrophil # 1.66 X10^3/uL (2.7-7.7); Neutrophil % 38.4 % (47-70); POSITIVE MORPHOLOGY YES; Platelet Count 188 K/mm3 (150-450); RBC Distribution Width CV 12.6 % (11.6-14.6); RBC Distribution Width SD 43.8 fl (35.1-43.9); Red Blood Count 3.59 M/mm3 (4.2-5.4); White Blood Count 4.3 K/mm3 (4.4-11.0)
[2025-02-27 06:28] LABS: Anion Gap 9 (5-15); BUN 19 mg/dL (4-19); BUN/Creat Ratio 27.2 RATIO (10-20); Calcium,Total 8.2 mg/dL (7.6-11.0); Carbon Dioxide 23.3 mmol/L (21.0-32.0); Chloride 97 mmol/L (98-108); Creatinine, Serum 0.68 mg/dL (0.70-1.20); EST Glomerular Filtration Rate 86 (>60); Estimated Creatinine Clearance 45.76 ml/min (50-250); Glucose 102 mg/dL (70-99); Potassium 4.3 mmol/L (3.3-5.1); Sodium Level 129 mmol/L (133-145)
[2025-02-27 06:47] LABS: Differential Indicated SCAN CRITERIA MET
[2025-02-27 06:49] LABS: Differential Comment SCANNED
[2025-02-27 09:45] VITALS: BP 151/71; PULSE 78; RESP 17; TEMP 36.4; O2SAT 97
[2025-02-27] MEDS: Cholecalciferol (VIT D3) 25 MCG TABLET (1,000 UNITS) 50 MCG PO (09:49)
[2025-02-27] MEDS: Magnesium Chloride 64 MG Delay Rel.Tablet 128 MG PO (09:49)
[2025-02-27] MEDS: Pantoprazole Sodium 40 MG Tablet PO (09:49)
[2025-02-27] MEDS: Dofetilide 250 MCG Capsule PO (09:49)
[2025-02-27] MEDS: APIXABAN 2.5 MG TABLET (WCH) PO (09:49)
[2025-02-27 09:50] VITALS: PULSE 78
[2025-02-27] MEDS: Metoprolol(XL)Succ 25 MG Tablet 12.5 MG PO (09:50)
[2025-02-27] MEDS: guaiFENesin 1,200 MG Tablet 1200 MG PO (09:50)
[2025-02-27] MEDS: Ascorbic Acid 500 MG Tablet PO (09:50)
[2025-02-27] MEDS: Calcium (Elemental) 500 MG Tablet PO (09:50)
--- NOTE | 2025-02-27 10:34 | PCM.PN.REN ---
Subjective Subjective Patient sitting up in bed eating breakfast. at bedside. Patient states she is feeling better today. No recent nausea or vomiting. Patient states she is trying to push more protein and continues to limit fluid intake. Objective Data Objective Data Vital Signs: Vital Signs Temp Pulse Resp BP Pulse Ox O2 Del Method 97.6 F L 78 17 151/71 H 97 Room Air 02/27/25 09:45 02/27/25 09:50 02/27/25 09:45 02/27/25 09:45 02/27/25 09:45 02/27/25 09:52 Oxygen Delivery Method Room Air Weight: 54.4 kg Body Mass Index (BMI) 18.8 Intake & Output: Intake and Output for Last 24 Hours 02/25/25 02/26/25 02/27/25 23:59 23:59 23:59 Intake Total 720 / 720 1000 / 1200 200 / 200 Output Total 1600 / 1600 Balance -880 / -880 1000 / 1200 200 / 200 Lab / Micro Data 02/27/25 05:35 02/27/25 05:35 Labs: Laboratory Results - last 24 hr 02/27/25 05:35: WBC 4.3 L, RBC 3.59 L, Hgb 11.9 L, Hct 33.7 L, MCV 93.9, MCH 33.1 H, MCHC 35.3, RDW Std Deviation 43.8, RDW Coeff of Idania 12.6, Plt Count 188, MPV 9.8, Immature Gran % (Auto) 0.200, Neut % (Auto) 38.4 L, Lymph % (Auto) 45.4 H, [place] % (Auto) 13.4 H, Eos % (Auto) 2.1, Baso % (Auto) 0.5, Absolute Neuts (auto) 1.7 L, Absolute Lymphs (auto) 1.96, Nucleated RBC % 0, Differential Comment SCANNED, Sodium 129 L, Potassium 4.3, Chloride 97 L, Carbon Dioxide 23.3, Anion Gap 9, BUN 19, Creatinine 0.68 L, Estim Creat Clear Calc 45.76 L, Est GFR (MDRD) Non-Af 86, BUN/Creatinine Ratio 27.2 H, Glucose 102 H, Calcium 8.2 Micro: Microbiology 02/24/25 13:29 Mucosa - Nasopharyngeal Respiratory Panel (PCR) - Final Parainfluenza 3 Physical Exam Narrative Alert and oriented x 3, no acute distress S1, S2, RRR Lung sounds clear. 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 Patient presented to the hospital on 02/23/2025 with history of intractable nausea/vomiting. Nephrology is asked to see the patient because of acute on chronic hyponatremia. Hyponatremia. 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 Baseline serum sodium has been around 127 to 133 mmol/L. She is treated with salt tablet and fluid restriction. She follows with Dr. Enciso in [place] office. Patient presented to hospital on 02/23/2025 with serum sodium of 124 mmol/L, sodium initially improved to 126 mmol/L on 02/24/2025 then decreased to 123 mmol/L 02/25. Suspect worsening of hyponatremia is due to decreased oral solute intake in the setting of nausea/vomiting on presentation. There is no severe symptoms of hyponatremia. Salt tablets were increased to 2gm three times a day. Today sodium 129. Continue salt tablets 2 g 3 times daily. Continue to limit fluid intake to 1.5 L/day or less and to push oral protein intake. Possible discharge to home today. Discussed nephrology plan with Dr. Chand. Marks for discharge from nephrology standpoint. Will arrange for hospital follow-up for patient in [place] office. Assessment and plan reviewed with Dr. Enciso.
--- NOTE | 2025-02-27 11:09 | DCINST_ITS ---
Discharge Instructions Diet Discharge Diet: No restrictions DC O2, CPAP, BIPAP needs Home O2 Discharge instructions: No Dressing / Incision Discharge Activity: Return to Normal Activity Weight Bearing Status: Weight bearing as tolerated Dressing / Incision Call your doctor if you observe: Fever of 101 or Higher, Coldness, Increased Pain, Numbness or Tingling, Change in Color, Inability to urinate, Inability to have a bowel movement, Shortness of breath, Dizziness, Fainting spells, Swelling in the ankles, Chest pain, Prolonged hiccupping, Increased palpitations (irregular heartbeat) and Calf discomfort Follow Up Care When: IN 2 WEEKS Test Results: Test results from this visit will be discussed in further detail at your follow- up appointment, if applicable. Discharge Plan Admission Admit Date/Time: 02/24/25 12:51 Primary Reason for Your Visit: Severe hyponatremia. Parainfluenza a bronchitis. Attending Provider: Trevon Cheema Primary Care Provider: Rochelle Brandt Consulting Providers: Cris Sarah; Barbi Herrera; Tania Meza Discharge Orders/Prescriptions Prescriptions: New guaifenesin [Mucus Relief ER] 1,200 mg Tablet Extended Release 12hr 1,200 mg PO BID 7 Days Qty: 14 0RF sodium chloride 1,000 mg Tablet,Soluble 2,000 mg PO TID 3 Days Qty: 18 0RF Continued (DME) Bilaterl knee high compression stockings (10-20) See Rx Instructions .Route .MEDSUPPLY Qty: 2 0RF Rx Instructions: As directed calcium carbonate 600 mg calcium (1,500 mg) tablet 600 mg PO DAILY esomeprazole magnesium 40 mg capsule,delayed release(DR/EC) See Rx Instructions .ROUTE .COMPLEX Dose Instruction: take 1 capsule by mouth daily Rx Instructions: take 1 capsule by mouth daily; ascorbate calcium (vitamin C) 500 mg tablet 500 mg PO QDAY apixaban 2.5 mg tablet 2.5 mg PO BID Qty: 180 3RF cholecalciferol (vitamin D3) 10 mcg (400 unit) capsule 2,000 unit PO DAILY ondansetron 4 mg tablet,disintegrating 4 mg PO Q8H PRN PRN (Reason: Nausea) Qty: 10 0RF famotidine 20 mg tablet 20 mg PO QHS PRN PRN (Reason: heartburn) zoledronic acid 4 mg/5 mL solution IV Patient Comments: DUE MARCH 06 2025 meclizine 25 mg PO Q6H PRN PRN (Reason: dizziness, nausea ) dofetilide 250 mcg capsule 250 mcg PO BID Qty: 180 3RF midodrine 2.5 mg tablet 2.5 mg PO BID Qty: 180 3RF metoprolol succinate 25 mg tablet extended release 24 hr 25 mg PO .COMPLEX Qty: 135 3RF Rx Instructions: 1/2 tablet (12.5 mg) in the morning and a whole tablet (25 mg) at bedtime magnesium oxide 400 mg (241.3 mg magnesium) tablet 400 mg PO DAILY Qty: 90 3RF Held sodium chloride 1,000 mg tablet,soluble 1,000 mg PO DAILY PRN (Reason: electrolyte replenishment) Qty: 30 3RF Hold Instructions: Start from 03/03/2025 Referrals / Follow Up: Rochelle Brandt MD [Primary Care Provider] - In 1 Week Eagle Enciso MD [Med Staff - Consulting] - Within 2 Weeks Disposition Disposition (needs filled in before D/C Order can be placed): Home, Self Care
--- NOTE | 2025-02-27 11:14 | DS.PCM_ITS ---
Providers Date of Admission: 02/24/25 Date of Discharge: 02/27/25 Primary Care Physician: Dr. Rochelle Brandt MD Consultations 02/25/25 14:21 Consult: Nephrology Routine Consulting Provider: Barbi Herrera Reason for Consult: acute on chronic hyponatremia EMERGENT Consult: No MD Notified: Yes Date Notified: 02/25/25 Time Notified: 14:21 Method of Notification: Verbal Reason For Visit: NAUSEA AND HYPONATREMIA Diagnosis Discharge Diagnosis (1) Hyponatremia: Status: Acute Code(s): E87.1 - Hypo-osmolality and hyponatremia Plan This is a 85-year-old female admitted for generalized weakness and congestion. Patient was found to have severely hyponatremic 124. Also found parainfluenza 3 bronchitis on respiratory panel #Hyponatremia * has a history of SIADH * had nausea and vomiting which is now resulved. * sodium is up to 128 today from 123 yesterday. * Has a history of acute on chronic nausea and vomiting and is believed she has a sensitive vestibular system and they therefore easily develop nausea and vomiting. * fluid restriction to 1250cc daily * her baseline sodium is ~ 131 * Sodium increased to 2 g 3 times daily today. 02/27: Discussed with the nurse midwife. 3 more days of sodium tablet 2 g 3 times daily and then back to the baseline 1 g once daily. She follows nurse midwife Dr. Enciso and appointment in 2 weeks. [facility] will take care of it * #Parainfluenza infection * She did not have any fever overnight and has remained stable from respiratory standpoint. * Respiratory panel positive for parainfluenza infection. * Supportive treatment for now. P.o. Tylenol as needed and breathing treatments as needed. 02/27 prescription given for Mucinex. Advised to continue continue incentive spirometry and PEP for 1 week * #Nausea and vomiting: improving. * Resolved. # Paroxysmal A-fib: On dofetilide and beta-elsa. On Eliquis #Chronic orthostatic hypotension: on midodrine #Chronic L1 compression fracture: has known osteopenia. PT./OT On board. Fall precautions # #History of GERD: Stable. Currently not on PPI #DVT prophylaxis: On Eliquis Discharge medication reconciliation done. Discharge follow-up instructions completed. Discharge process discussed with the patient and all questions were answered to patient's satisfaction. Follow with PCP in 1 to 2 weeks Total time spent, exact 35 minutes on discharge meds reconciliation, examination, coordination of care with nurses and ancillary staff, review of imaging and blood test and discussion with the patient on follow-up instructions. Medications at Discharge Home Medications Bilaterl knee high compression stockings (10-20) #2 ea 05/29/22 calcium carbonate 600 mg PO DAILY 10/14/22 cholecalciferol (vitamin D3) 10 mcg (400 unit) capsule 2,000 unit PO DAILY supplement 10/14/22 ondansetron 4 mg disintegrating tablet 4 mg PO Q8H PRN PRN Nausea #10 tabs 01/23/24 ascorbate calcium (vitamin C) 500 mg tablet 500 mg PO QDAY 06/07/24 esomeprazole magnesium 40 mg capsule,delayed release See Rx Instructions .Route .COMPLEX 09/09/24 dofetilide 250 mcg capsule 250 mcg PO BID #180 caps 10/06/24 meclizine 25 mg PO Q6H PRN PRN dizziness, nausea 10/30/24 midodrine 2.5 mg tablet 2.5 mg PO BID #180 tabs 11/08/24 sodium chloride 1,000 mg soluble tablet 1,000 mg PO DAILY PRN electrolyte replenishment #30 tabs 12/26/24 Held on 02/27/25. Instructions: Start from 03/03/2025 magnesium oxide 400 mg (241.3 mg magnesium) tablet 400 mg PO DAILY #90 tabs 01/30/25 metoprolol succinate 25 mg tablet,extended release 24 hr 25 mg PO .COMPLEX #135 tabs 01/30/25 apixaban 2.5 mg tablet 2.5 mg PO BID #180 TABLETS 02/22/25 famotidine 20 mg tablet 20 mg PO QHS PRN PRN heartburn 02/24/25 zoledronic acid 4 mg/5 mL intravenous solution IV 02/24/25 guaifenesin 1,200 mg tablet, extended release 12 hr (Mucus Relief ER) 1,200 mg PO BID 1 week #14 tabs 02/27/25 sodium chloride 1,000 mg soluble tablet 2,000 mg (2 x 1,000 mg) PO TID 3 days #18 tabs 02/27/25 Physical Exam Narrative Seen and examined. Hyponatremia is better. Serum sodium increased to 129. Discussed with the nurse midwife. Discussed with the patient's at the bedside. Patient has dry cough which is getting better from parainfluenza bronchitis Physical exam: General: Alert, Oriented x3, Cooperative HEENT: Atraumatic, PERRLA, EOMI, Normocephalic. BMI 18.8 kg/m?. Mild chronic malnutrition Oral: No Gingival or Mucosal Lesions/ Ulcerations Neck: Supple, No JVD, Negative Carotid Bruits Chest wall/Lungs: Air entry diminished in bilateral lung bases. No crepitation/rhonchi Cardiovascular: Regular rate and rhythm, Normal S1,S2, systolic murmur Abdomen: Bowel Sounds Present, Soft, Non Tender, Non-Distended : No dysuria. No renal angle tenderness. No suprapubic tenderness. Extremities: No edema, Capillary Refill Less than 3 Seconds Skin: No rashes, No breakdown Musculoskeletal: No Tenderness to Palpation of Joints or Extremities. Decreased muscle mass Neurological: Cranial nerves II-XII grossly intact, DTR 2+/4. No acute focal neurological deficit. Psych/Mental Status: Normal Affect, Appropriate. Weight / BMI Weight Weight: 119 lb 14.903 oz Body Mass Index (BMI) 18.8 ABG / Lab / Microbiology Data 02/27/25 05:35 02/27/25 05:35 Laboratory: Laboratory Results - last 24 hr 02/27/25 05:35: WBC 4.3 L, RBC 3.59 L, Hgb 11.9 L, Hct 33.7 L, MCV 93.9, MCH 33.1 H, MCHC 35.3, RDW Std Deviation 43.8, RDW Coeff of [place]ania 12.6, Plt Count 188, MPV 9.8, Immature Gran % (Auto) 0.200, Neut % (Auto) 38.4 L, Lymph % (Auto) 45.4 H, [place] % (Auto) 13.4 H, Eos % (Auto) 2.1, Baso % (Auto) 0.5, Absolute Neuts (auto) 1.7 L, Absolute Lymphs (auto) 1.96, Nucleated RBC % 0, Differential Comment SCANNED, Sodium 129 L, Potassium 4.3, Chloride 97 L, Carbon Dioxide 23.3, Anion Gap 9, BUN 19, Creatinine 0.68 L, Estim Creat Clear Calc 45.76 L, Est GFR (MDRD) Non-Af 86, BUN/Creatinine Ratio 27.2 H, Glucose 102 H, Calcium 8.2 Microbiology: Microbiology 02/24/25 13:29 Mucosa - Nasopharyngeal Respiratory Panel (PCR) - Final Parainfluenza 3 D/C Instructions Discharge Diet: No restrictions Weight Bearing Status: Weight bearing as tolerated Call your doctor if you observe: Fever of 101 or Higher, Coldness, Increased Pain, Numbness or Tingling, Change in Color, Inability to urinate, Inability to have a bowel movement, Shortness of breath, Dizziness, Fainting spells, Swelling in the ankles, Chest pain, Prolonged hiccupping, Increased palpitations (irregular heartbeat) and Calf discomfort DC O2, CPAP, BIPAP Needs Home O2 Discharge instructions: No When: IN 2 WEEKS Meaningful Use Info Meaningful Use Meaningful Use Diagnoses (Choose all that apply): None applicable Ischemic Stroke Statin Dosing Therapy Reference: STATIN DOSE THERAPY REFERENCE: * Patients > 75 years receive moderate or high dose statin therapy. * Patients 75 years or YOUNGER should receive HIGH intensity statin dose unless contraindicated. You will be required to document reason for non-treatment if statin daily dose does not meet guidelines. HIGH DOSE STATIN THERAPY DAILY Atorvastatin > than or = to 40 mg Rosuvastatin > than or = to 20 mg Amlodipine + Atorvastatin > than or = to 2.5/40 mg Ezetimibe + Simvastatin 10/80 mg Simvastatin 80mg Discharge Plan Admission Admit Date/Time: 02/24/25 12:51 Primary Reason for Your Visit: Severe hyponatremia. Parainfluenza a bronchitis. Attending Provider: Trevon Cheema Primary Care Provider: Rochelle Brandt Consulting Providers: Cris Sarah; Barbi Herrera; Tania Meza Discharge Orders/Prescriptions Prescriptions: New guaifenesin [Mucus Relief ER] 1,200 mg Tablet Extended Release 12hr 1,200 mg PO BID 7 Days Qty: 14 0RF sodium chloride 1,000 mg Tablet,Soluble 2,000 mg PO TID 3 Days Qty: 18 0RF Continued (DME) Bilaterl knee high compression stockings (10-20) See Rx Instructions .Route .MEDSUPPLY Qty: 2 0RF Rx Instructions: As directed calcium carbonate 600 mg calcium (1,500 mg) tablet 600 mg PO DAILY esomeprazole magnesium 40 mg capsule,delayed release(DR/EC) See Rx Instructions .ROUTE .COMPLEX Dose Instruction: take 1 capsule by mouth daily Rx Instructions: take 1 capsule by mouth daily; ascorbate calcium (vitamin C) 500 mg tablet 500 mg PO QDAY apixaban 2.5 mg tablet 2.5 mg PO BID Qty: 180 3RF cholecalciferol (vitamin D3) 10 mcg (400 unit) capsule 2,000 unit PO DAILY ondansetron 4 mg tablet,disintegrating 4 mg PO Q8H PRN PRN (Reason: Nausea) Qty: 10 0RF famotidine 20 mg tablet 20 mg PO QHS PRN PRN (Reason: heartburn) zoledronic acid 4 mg/5 mL solution IV Patient Comments: DUE MARCH 06 2025 meclizine 25 mg PO Q6H PRN PRN (Reason: dizziness, nausea ) dofetilide 250 mcg capsule 250 mcg PO BID Qty: 180 3RF midodrine 2.5 mg tablet 2.5 mg PO BID Qty: 180 3RF metoprolol succinate 25 mg tablet extended release 24 hr 25 mg PO .COMPLEX Qty: 135 3RF Rx Instructions: 1/2 tablet (12.5 mg) in the morning and a whole tablet (25 mg) at bedtime magnesium oxide 400 mg (241.3 mg magnesium) tablet 400 mg PO DAILY Qty: 90 3RF Held sodium chloride 1,000 mg tablet,soluble 1,000 mg PO DAILY PRN (Reason: electrolyte replenishment) Qty: 30 3RF Hold Instructions: Start from 03/03/2025 Referrals / Follow Up: Rochelle Brandt MD [Primary Care Provider] - In 1 Week Eagle Enciso MD [Med Staff - Consulting] - Within 2 Weeks Disposition Disposition (needs filled in before D/C Order can be placed): Home, Self Care Charges/Coding Visit Charges Inpatient E&M: 24756 Disch Hosp >30min
--- NOTE | 2025-02-27 13:24 | CASEMGMT ---
Patient has order for discharge. RN CM in to discuss needs at discharge. Patient denies needs or help at discharge. Patient had no further questions or concerns.
== END 2025-02-27 14:36 | disposition home or self-care (01) | DRG 644 ==
LOC: ED 02-24 00:11 → PCU 02-24 00:47
PROVIDERS: Physician Assistant; Student in an Organized Health Care Education/Training Program; Admitting Provider Internal Medicine; Emergency Provider Emergency Medicine; PCP Internal Medicine; Visit Provider Internal Medicine
DX: E22.2 Syndrome of inappropriate secretion of antidiuretic hormone (principal); Z68.1 Body mass index [BMI] 19.9 or less, adult; E44.1 Mild protein-calorie malnutrition; R64 Cachexia; B97.89 Other viral agents as the cause of diseases classified elsewhere; C50.212 Malignant neoplasm of upper-inner quadrant of left female breast; D72.819 Decreased white blood cell count, unspecified; I48.0 Paroxysmal atrial fibrillation; G43.909 Migraine, unspecified, not intractable, without status migrainosus; J45.909 Unspecified asthma, uncomplicated; I34.1 Nonrheumatic mitral (valve) prolapse; K21.9 Gastro-esophageal reflux disease without esophagitis; K58.9 Irritable bowel syndrome, unspecified; I95.89 Other hypotension; I95.1 Orthostatic hypotension; M80.0AXS Age-related osteoporosis with current pathological fracture, other site, sequela; Z86.16 Personal history of COVID-19; Z79.2 Long term (current) use of antibiotics; M85.80 Other specified disorders of bone density and structure, unspecified site; Z79.01 Long term (current) use of anticoagulants; Z88.1 Allergy status to other antibiotic agents; Z88.8 Allergy status to other drugs, medicaments and biological substances; Z91.048 Other nonmedicinal substance allergy status; M85.88 Other specified disorders of bone density and structure, other site
CPT/HCPCS: 36415; 74177; 80048; 80053; 81001; 83735; 84100; 84295; 84443; 85025; 87633; 93005; 94668; 97161; 97165; 99284; Q9967; A4216; J2405

== ENCOUNTER 2025-04-11 16:26 | Emergency (ER) | payer MEDICARE, OTHER, SELFPAY ==
[2025-04-11 16:27] VITALS: BP 192/90; PULSE 81; RESP 16; TEMP 37.1; O2SAT 97
[2025-04-11 16:30] VITALS: BP 188/106; PULSE 87; RESP 12; TEMP 36.9; O2SAT 99; BMI 19.5
[2025-04-11] MEDS: 0.9% Normal Saline (1000mL) 1,000 ML 999 ML IV (16:45)
[2025-04-11 16:55] LABS: Hematocrit 39.0 % (37-47); Hemoglobin 13.5 g/dL (12.0-15.0); Immature Granulocytes Count 0.010 X10^3/uL (0.0-0.0); Mean Corp Hgb Conc 34.6 g/dL (32-36); Mean Corpuscular Volume 95.1 fL (81-99); Mean Platelet Vol. 9.0 fl (6.2-12.0); NRBC Flagged by Analyzer 0 % (0-5); Platelet Count 263 K/mm3 (150-450); RBC Distribution Width CV 12.9 % (11.6-14.6); RBC Distribution Width SD 45.5 fl (35.1-43.9); Red Blood Count 4.10 M/mm3 (4.2-5.4); White Blood Count 6.5 K/mm3 (4.4-11.0)
[2025-04-11 17:15] LABS: AST(SGOT) 34 U/L (<=31); Alanine Aminotransfer ALT/SGPT 23 U/L (<=34); Albumin, Serum 4.0 g/dL (3.4-4.8); Alkaline Phosphatase 106 U/L (35-104); Anion Gap 13 (5-15); BUN 17 mg/dL (4-19); BUN/Creat Ratio 23.1 RATIO (10-20); Calcium,Total 8.7 mg/dL (7.6-11.0); Carbon Dioxide 21.2 mmol/L (21.0-32.0); Chloride 95 mmol/L (98-108); Estimated Creatinine Clearance 47.69 ml/min (50-250); Globulin 3.2 g/dL (2.2-4.2); Glucose 150 mg/dL (70-99); Lipase 26 U/L (13-75); Potassium 4.1 mmol/L (3.3-5.1)
--- NOTE | 2025-04-11 17:20 | EDS_ITS ---
HPI History of Present Illness Chief Complaint: Nausea/Vomiting Narrative Narrative: Patient is a 85-year-old female with a past medical history of hyponatremia, atrial flutter on Eliquis however this is on hold for the past week for her eye surgery that she had done yesterday, TIA, SIADH, IBS who presents to the emergency department the chief complaint of nausea vomiting unable to keep anything down. Patient states that yesterday she had surgery on her eyes she states that she went to a follow-up appointment today and notes that on the way home she became nauseous. She states that ever since then she has had persistent nausea and vomiting. Patient denies any sick contacts. Patient states that she has been urinating a lot lately despite not drinking a lot of fluids states that she feels extremely thirsty [facility] Medical History Leukopenia Hyponatremia Motion sickness Adrenal insufficiency History of atrial flutter Breast pain, right History of breast cancer COVID-19 Chronic diarrhea Osteopenia 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 Lichen sclerosus Atrophic vaginitis TIA (transient ischemic attack) SIADH (syndrome of inappropriate ADH production) Anemia GERD (gastroesophageal reflux disease) Diverticulitis Migraine Osteopenia Nonrheumatic mitral (valve) prolapse Paroxysmal atrial fibrillation Ovarian cyst Compression fracture of L1 lumbar vertebra Paroxysmal atrial flutter Atrial flutter IBS (irritable bowel syndrome) history of blood transfusion 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) Chronic hyponatremia Home Medications ?Medication ?Instructions ?Recorded ?Last Taken ?Type Bilaterl knee high compression #2 ea 05/29/22 Unknown Rx stockings (10-20) calcium carbonate 600 mg PO DAILY 10/14/22 Unk nown History cholecalciferol (vitamin D3) 10 2,000 unit PO DAILY quispe pplement 10/14/22 Unknown History mcg (400 unit) capsule ondansetron 4 mg disintegrating 4 mg PO Q8H PRN PRN Na usea #10 tabs 01/23/24 Unknown Rx tablet ascorbate calcium (vitamin C) 500 500 mg PO QDAY 06/07 Unknown History mg tablet esomeprazole magnesium 40 mg See Rx Instructions .Rout e .COMPLEX 09/09/24 Unknown History capsule,delayed release dofetilide 250 mcg capsule 250 mcg PO BID #180 caps Unknown Rx meclizine 25 mg PO Q6H PRN PRN dizzine ss, 10/30/24 Unknown History nausea midodrine 2.5 mg tablet 2.5 mg PO BID #180 tabs 10/16 02/05 Unknown Rx magnesium oxide 400 mg (241.3 mg 400 mg PO DAILY #90 t abs 01/30/25 Unknown Rx magnesium) tablet metoprolol succinate 25 mg 25 mg PO .COMPLEX #135 tabs 01/30/25 Unknown Rx tablet,extended release 24 hr apixaban 2.5 mg tablet 2.5 mg PO BID #180 TABLETS 0 02/22/25 Unknown Rx famotidine 20 mg tablet 20 mg PO QHS PRN PRN heartbu rn 02/24/25 Unknown History zoledronic acid 4 mg/5 mL IV 02/24/25 Unknown History intravenous solution sodium chloride 1,000 mg soluble 1,000 mg PO DAILY 08/08 Unknown History tablet doxycycline hyclate 100 mg capsule 100 mg PO BID 04/11 Unknown History ondansetron 4 mg disintegrating 4 mg PO Q6H PRN nausea and 04/11/25 Unknown Rx tablet vomiting #14 tabs Allergy/AdvReac Type Severity Reaction Status Date / Time cantaloupe Allergy Severe Anaphylaxis Verified 04/11/25 16:30 grass pollen Allergy Severe Unknown Verified 04/11/25 16:30 Penicillins Allergy Severe Anaphylaxis Verified 04/11/25 16:30 Sulfa (Sulfonamide Allergy Unknown Other Verified 04/11/25 16:30 Antibiotics) mold Allergy Unknown Verified 04/11/25 16:30 pollen extracts Allergy Unknown Verified 04/11/25 16:30 erythromycin base AdvReac Severe Unknown Verified 04/11/25 16:30 lansoprazole (From Prevacid) AdvReac Severe Nausea/Vom/ Verified 04/11/25 16:30 Diarrhea adhesive tape AdvReac Intermediate Rash Verified 04/11/25 16:30 Family History Father Unknown family medical history Mother Uterine cancer Thyroid disorder Kidney disease Hypertension CHF (congestive heart failure) Arthritis Surgical History History of cataract surgery History of colonoscopy (05/2019) History of esophagogastroduodenoscopy (EGD) (05/2019) History of left heart catheterization (09/2012) H/O left mastectomy History of radiofrequency ablation (RFA) procedure for cardiac arrhythmia (08/2013) History of removal of ovarian cyst H/O lymph node biopsy H/O breast biopsy History of dilation and curettage Social History household members: spouse Smoking Status: Never smoker alcohol intake: current alcohol intake frequency: holidays/special occasions only substance use type: does not use caffeine: Yes what type of physical activity do you participate in: walking and yoga frequency: 3-4 times per week seatbelt use: always do you feel safe at home: Yes additional social history: -Tony Patient and are both retired ROS ROS ED ROS Narrative Constitutional: Denies any fevers, chills, headaches Eyes: Denies change in vision double vision blurry vision Cardiovascular: Denies chest pain Respiratory: Denies shortness of breath Abdomen: Complains of nausea vomiting as noted above denies any abdominal pain denies black stools or blood in her stool : Complains of increased frequency of urination denies any painful urination Neurological: Denies numbness, wheeze, tingling Musculoskeletal: Denies back pain Skin: Denies any rashes or lesions EXAM Physical Exam Narrative Exam Narrative: General: Patient was lying in bed rest comfortably did not appear to be in acute distress Head: Atraumatic, normocephalic Eyes: PERRL bilaterally, EOMI blood, no conjunctival injection noted, patient has postsurgical changes above her eyes bilaterally this is well-healing no concern for infection Neck: Soft, supple, trachea midline Cardiovascular: Regular rate and rhythm Respiratory: Clear to auscultation bilaterally Abdomen: Soft, nondistended, no tenderness palpation Extremities: +5/5 strength noted in the bilateral upper and lower extremities Neurological: Patient follow commands and that she was at [facility] years 2024 Skin: Warm, dry, see eyes Const Vital Signs: 04/11/25 16:27 04/11/25 16:30 04/11/25 17:30 Temperature 98.7 F 98.5 F 98.3 F Temperature Source Oral Oral Oral Pulse Rate 81 87 84 Respiratory Rate 16 12 14 Blood Pressure 192/90 H 188/106 H 187/89 H Blood Pressure Mean 124 133 121 Pulse Ox 97 99 91 Oxygen Delivery Method Room Air Room Air Room Air 04/11/25 20:00 04/11/25 21:00 Temperature 98 F 97.8 F Temperature Source Temporal Temporal Pulse Rate 85 82 Respiratory Rate 18 20 H Blood Pressure 169/52 H 188/70 H Blood Pressure Mean 91 109 Pulse Ox 97 Oxygen Delivery Method Room Air MDM MDM MDM Narrative Medical decision making narrative: Patient is a 85-year-old female who presents to the emergency department chief complaint of nausea vomiting not tolerating oral intake. On the differential diagnosis includes but not limited to viral gastroenteritis, electrolyte abnormality, urinary retention, UTI. Once workup is obtained reviewed she will be reevaluated. Patient be given IV fluids and Zofran. Nursing notified me that they BladderScan her for 350 however she urinated and they noted that it was 400 out rebladder scanner noted that it was 150. I asked them to place Cotto catheter. Patient did note that she had a significant mount of urine leak out around the Cotto catheter and into the bed. Patient's CBC was reviewed and showed no evidence leukocytosis white blood count normal at 6.5, he was 13.5, plate count of 263. Patient sodium was low indicating hyponatremia at 129 however this is chronic this is not new, potassium normal at 4.1, creatinine normal at 0.72. Patient's AST and ALT were 34 and 23 respectively. Patient's lipase was noted to 26, urinalysis reviewed showed no evidence of infection. Patient CT abdomen and pelvis with IV contrast showed moderate colonic stool burden suggest constipation. Cotto urinary catheter malpositioned balloon insufflated in the upper vaginal canal/cervical regions small bowel as well pleural effusions seen in the lower thorax. I had the nursing staff remove the Cotto and replaced this. On replacement they noted that they got a another 600 out. We will leave the Cotto catheter in place as there is concern that she had urinary retention and states that her nausea is better. I do suspect that her urinary tension was likely secondary from anesthetic that she had yesterday for her eye procedure. She is advised to follow-up with her urologist Dr. Prince in a few days for a Cotto removal and spontaneous void trial. Patient was advised to use MiraLAX twice daily for her constipation until she is having good bowel movements. She is vies to return with worsening symptoms or concerns. Prescription for Zofran ODT sent to the pharmacy. She is agreeable this plan as well as significant other bedside all questions answered she was discharged home in stable condition. Lab Data Labs: Laboratory Results - last 24 hr 04/11/25 04/11/25 16:45 17:40 WBC 6.5 RBC 4.10 L Hgb 13.5 Hct 39.0 MCV 95.1 MCH 32.9 H MCHC 34.6 RDW Std Deviation 45.5 H RDW Coeff of Idania 12.9 Plt Count 263 MPV 9.0 Immature Gran % (Auto) 0.200 Neut % (Auto) 57.0 Lymph % (Auto) 36.8 Graham % (Auto) 5.1 Eos % (Auto) 0.3 Baso % (Auto) 0.6 Absolute Neuts (auto) 3.7 Absolute Lymphs (auto) 2.38 Nucleated RBC % 0 Sodium 129 L Potassium 4.1 Chloride 95 L Carbon Dioxide 21.2 Anion Gap 13 BUN 17 Creatinine 0.72 Estim Creat Clear Calc 47.69 L Est GFR (MDRD) Non-Af 83 BUN/Creatinine Ratio 23.1 H Glucose 150 H Calcium 8.7 Total Bilirubin 0.91 AST 34 H ALT 23 Alkaline Phosphatase 106 H Total Protein 7.2 Albumin 4.0 Globulin 3.2 Albumin/Globulin Ratio 1.2 Lipase 26 Urine Color Straw Urine Clarity Clear Urine pH 8.0 Ur Specific [place] 1.015 Urine Protein 30 H Urine Glucose (UA) 100 H Urine Ketones Negative Urine Occult Blood 10 H Urine Nitrite Negative Urine Bilirubin Negative Urine Urobilinogen Normal Ur Leukocyte Esterase Negative Urine RBC 0-5 SEEN Urine WBC 0-5 SEEN Ur Squamous Epith Cells 0-5 SEEN Urine Bacteria 0 SEEN Urine Mucus 0 SEEN Radiography Diagnostic Testing: Clinical Impression(s) from Imaging Studies Abdomen/Pelvis CT 04/11/25 19:11 IMPRESSION: 1. Moderate colonic stool burden suggesting constipation. Mild circumferential wall thickening and inflammatory fat stranding along the descending colon, likely segmental colitis. 2. Cotto urinary catheter malpositioned, balloon insufflated in the upper vaginal canal/cervix region. 3. Small bibasilar pleural effusion seen in the lower thorax. Reading Location: [id number] Discharge Plan Triage Chief Complaint: Nausea/Vomiting ED Provider: Girish Jay Dx/Rx/DC Orders Clinical Impression: Acute urinary retention, Paroxysmal atrial flutter, Paroxysmal atrial fibrillation, Hyponatremia, Constipation, Nausea Prescriptions: New ondansetron 4 mg tablet,disintegrating 4 mg PO Q6H PRN (Reason: nausea and vomiting) Qty: 14 0RF No Action (DME) Bilaterl knee high compression stockings (10-20) See Rx Instructions .Route .MEDSUPPLY Qty: 2 0RF Rx Instructions: As directed calcium carbonate 600 mg calcium (1,500 mg) tablet 600 mg PO DAILY esomeprazole magnesium 40 mg capsule,delayed release(DR/EC) See Rx Instructions .ROUTE .COMPLEX Dose Instruction: take 1 capsule by mouth daily Rx Instructions: take 1 capsule by mouth daily; ascorbate calcium (vitamin C) 500 mg tablet 500 mg PO QDAY apixaban 2.5 mg tablet 2.5 mg PO BID Qty: 180 3RF sodium chloride 1,000 mg Tablet,Soluble 1,000 mg PO DAILY cholecalciferol (vitamin D3) 10 mcg (400 unit) capsule 2,000 unit PO DAILY ondansetron 4 mg tablet,disintegrating 4 mg PO Q8H PRN PRN (Reason: Nausea) Qty: 10 0RF famotidine 20 mg tablet 20 mg PO QHS PRN PRN (Reason: heartburn) zoledronic acid 4 mg/5 mL solution IV meclizine 25 mg PO Q6H PRN PRN (Reason: dizziness, nausea ) doxycycline hyclate 100 mg capsule 100 mg PO BID dofetilide 250 mcg capsule 250 mcg PO BID Qty: 180 3RF midodrine 2.5 mg tablet 2.5 mg PO BID Qty: 180 3RF metoprolol succinate 25 mg tablet extended release 24 hr 25 mg PO .COMPLEX Qty: 135 3RF Rx Instructions: 1/2 tablet (12.5 mg) in the morning and a whole tablet (25 mg) at bedtime magnesium oxide 400 mg (241.3 mg magnesium) tablet 400 mg PO DAILY Qty: 90 3RF Primary Care Provider: Rochelle Brandt Referrals: Rochelle Brandt MD [Primary Care Provider] - Pamela Prince MD [Med Staff - Active Staff] - Activity Restrictions/Additional Instructions: Use MiraLAX twice daily until having good bowel movements then reduce to once a day as your CT showed evidence of constipation. Follow-up with your urologist for Cotto catheter removal. Return with worsening symptoms or concerns. E Zofran as sent to your pharmacy as prescribed. Print Language: Romansh Disposition Disposition: Home, Self Care
[2025-04-11 17:30] VITALS: BP 187/89; PULSE 84; RESP 14; TEMP 36.8; O2SAT 91
[2025-04-11 17:43] LABS: Mucous, Urine 0 SEEN /hpf (<or=2+)
[2025-04-11 18:02] LABS: Color, Urine Straw (Yellow); Glucose, Dipstick 100 mg/dl (Normal); Ketone-Dipstick Negative (Negative); Leukocyte Esterase-Dipstick Negative /ul (Negative); Nitrite-Dipstick Negative (Negative); Occult Blood-Urine 10 /ul (Negative); Protein-Dipstick 30 mg/dl (Negative); Specific Gravity, Urine 1.015 (1.002-1.030); Urine Bilirubin Dipstick Negative (Negative)
[2025-04-11 18:37] LABS: Red Blood Cells-Urine 0-5 SEEN /hpf (0-5); Squamous Epithelial Cells - UA 0-5 SEEN /hpf (5-10)
--- NOTE | 2025-04-11 19:11 | CT_ITS ---
PROCEDURE: ABDOMEN/PELVIS W IV CONT ONLY 04/11/2025 REASON FOR EXAM: N/V TECHNIQUE: ABDOMEN/PELVIS W IV CONT ONLY Coronal and Sagittal reconstruction series were provided. CONTRAST: Isovue 370 VOLUME: 75 mL One or more dose reduction techniques were used (e.g., Automated exposure control, adjustment of the mA and/or kV according to patient size, use of iterative reconstruction technique. RADIATION DOSE SUMMARY: DLP: 421.22 mGycm FINDINGS: Lung bases: Small bibasilar pleural effusions and scattered dependent atelectasis. Liver: No significant abnormality. Gallbladder: Unremarkable. No biliary ductal dilatation. Spleen: Normal size and morphology. Pancreas: Unremarkable, no ductal dilatation. Adrenals: Unremarkable. Kidneys: Symmetric enhancement. No urolithiasis or hydronephrosis. Bladder: Unremarkable. Reproductive Organs: Grossly normal uterus and bilateral adnexae. A Cotto urinary catheter is malpositioned with balloon inflated within the upper vaginal canal/cervix region. Bowel: No evidence of obstruction. Normal appendix. Moderate colonic stool burden throughout the colon suggesting constipation. Mild circumferential segmental wall thickening and inflammatory fat stranding along the descending colon suggestive of colitis. Mildly distended rectal vault. Lymph nodes: No enlarged abdominopelvic lymph nodes. Vasculature: Normal course and caliber of the abdominal aorta. Mild atherosclerotic disease. Peritoneum / Retroperitoneum: No ascites or free air. Bones: Chronic compression fracture deformity of L1 with moderate height loss and mild dorsal retropulsion, unchanged. Trace grade 1 degenerative retrolisthesis of L2 on L3. CT/Abdomen/Pelvis W IV Cont ONLY IMPRESSION: 1. Moderate colonic stool burden suggesting constipation. Mild circumferential wall thickening and inflammatory fat stranding along the descending colon, likely segmental colitis. 2. Cotto urinary catheter malpositioned, balloon insufflated in the upper vagin al canal/cervix region. 3. Small bibasilar pleural effusion seen in the lower thorax. Reading Location: [id number]
[2025-04-11 20:00] VITALS: BP 169/52; PULSE 85; RESP 18; TEMP 36.6
[2025-04-11 21:00] VITALS: BP 188/70; PULSE 82; RESP 20; TEMP 36.6; O2SAT 97
[2025-04-11 23:45] VITALS: BP 141/83; PULSE 82; RESP 18; TEMP 36.6; O2SAT 100
== END 2025-04-12 00:05 | disposition home or self-care (01) ==
PROVIDERS: Emergency Provider Emergency Medicine; PCP Internal Medicine; Visit Provider Emergency Medicine
DX: I48.0 Paroxysmal atrial fibrillation (principal); I48.92 Unspecified atrial flutter; R33.9 Retention of urine, unspecified; K59.00 Constipation, unspecified; E87.1 Hypo-osmolality and hyponatremia; Z85.3 Personal history of malignant neoplasm of breast; K21.9 Gastro-esophageal reflux disease without esophagitis; Z79.899 Other long term (current) drug therapy; Z79.01 Long term (current) use of anticoagulants; Z90.12 Acquired absence of left breast and nipple; R11.2 Nausea with vomiting, unspecified
CPT/HCPCS: 74177; 80053; 81001; 83690; 85025; 96361; 96374; 96375; 99284; Q9967; A4216; J2405

== ENCOUNTER 2025-05-22 11:00 | Outpatient (RCR) | payer MEDICARE, OTHER, SELFPAY ==
--- NOTE | 2025-03-28 10:21 | HP.PTEVAL ---
Patient's Visit Information Visit Information Visit Information: JULIANNA TUCKER is a 85 year old F referred to Physical Therapy by Dr. Erick Blanca MD with a diagnosis of fatigue and abnormality of gait. Date of Evaluation: 03/28/25 Physical Therapist: NEISHA Byrd Visit Plan Frequency: 2x /Week Duration: 6 Weeks Plan: 2X/ week for 3-6 weeks for LE strength, balance activities, endurance with HEP Subjective Subjective: Pt was in the hospital for 4 days about a month ago (towards the end of February) for the flu and low sodium. She got out of the hospital and was very weak. She saw her Dr and her recommended PT to get stronger. She notices that she is struggling with real fatigue (ongoing issue), getting up and moving around and enough stamina to do things. She has steps to the basement where the laundry is. She can do stairs slowly and carefully. 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 The last time she fell was in Oct. She can drive but does drive very much. Her brings her for appts. If she is moving she has pain in R shoulder, R knee, back, R hip joint. Her L shoulder is starting to go to. She has had cortizone shots in her shoulder and her knee and wants to do them again since it has been a few years. She was in pain management. Objective Objective: Gait: walks with good step length with occ veering LE MMT: R hip flex 11.7 and L 10.7 R knee ext 17.3 and L 14.7 R knee flex 12.4 and L 11.2 R hip abd in supine 9.2 and L 9.4 Pt is able to do 3/4 normal ROM bridge Sit to stand: needs min A to stand up without UE support Standing heel and toe raises: able to do with some UE support for balance FGA 17 CATSIB 120/120 Balance/Special Test Scores Functional Gait Assessment Score: 17 % Disability: 43.3400 CATSIB Score (Max score 120 seconds): 120 Lower Extremity Functional Score: 32 Goals Goal 1:: I HEP Goal Time Frame: 2-4 Weeks Goal 2:: Increase LE strength (at the eval LE strength was LE MMT: R hip flex 11.7 and L 10.7 R knee ext 17.3 and L 14.7 R knee flex 12.4 and L 11.2 R hip abd in supine 9.2 and L 9.4 Pt is able to do 3/4 normal ROM bridge). Goal Time Frame: 2-4 Weeks Goal 3:: Be able to stand up on first attempt with no UE support Goal Time Frame: 2-4 Weeks Goal 4:: Increase balance (at eval FGA 17) Goal Time Frame: 2-4 Weeks Goal 5:: Pt to report 50% increase in endurance Goal Time Frame: 2-4 Weeks Rehabilitation Potential Rehabilitation Potential: Good Anticipated Interventions Patient/Client Instruction: Educate patient on: Condition and Plan of Care For the Purpose of:: To improve muscle performance and motor function, To improve ability to perform ADL's, To increase tolerance to activity/condition/position, To improve performance and independence with ADL's, To decrease level of supervision to perform tasks, To improve ability of physical actions for home/community/work/leisure, To improve gait and locomotor functions, To improve endurance, To improve balance and To improve safety with gait Therapeutic Exercise to Include: Strength training, Endurance training, Balance training, Postural training, Flexibilty training, Gait and locomotor training, Neuromotor development, Active ROM and Dynamic Lumbar Stabilization For the Purpose of:: To improve muscle performance and motor function, To improve ability to perform ADL's, To increase tolerance to activity/condition/position, To improve performance and independence with ADL's, To decrease level of supervision to perform tasks, To improve ability of physical actions for home/community/work/leisure, To improve gait and locomotor functions, To improve health of tissue, To decrease soft tissue restriction, To improve endurance, To improve balance and To improve safety with gait Functional Training to Include: Gait training For the Purpose of:: To improve gait and locomotor functions and To improve safety with gait Text: Thank you for the opportunity to evaluate your patient. For Medicare and Medicare HMO plans, please review the plan of care and approve it. It will need to be FAXED BACK to us at [phone] for Medicare purposes. For Medicare only, by signing this I certify the plan of care. Please let me know if there are questions or concerns regarding this plan of care. Physician Signature: Date:
--- NOTE | 2025-04-28 13:06 | HP.PTREVAL_ITS ---
Re-Evaluation Intro: Dr. Erick Blanca MD, It has been my pleasure to treat JULIANNA TUCKER over the last 5 visits for fatigue and abnormality of gait. Please see the progress note below for an update on the physical therapy plan of care! Subjective Subjective: Pt feels that she is not doing well with her balance. She feels like she is walking on a cushion surface. She knows that all she can do is exercise. She is afraid of falling so she takes shorter steps and then is slower. She had eye surgery and that has set her balance back. She wants to do some PT to get her back to where she was. She is getting a serious of gel shots into her knee. Sit to stand exercises are too hard on the knee so ortho said to not do those. She reports that her endurance is not where it should be. Pt felt that she was 40% better and then had the eye surgery. Objective Objective/Function: R hip flex 13.5 and L 12.7 R knee ext 13.5 and L 13.8 R knee flex 12.4 and L 12.1 R hip abd in supine 9.2 and L 9.4 Pt is able to do 3/4 normal ROM bridge). FGA 19 Plan Plan Plan: 3 visits to get her into a change in few exercises in gym program that she can do herself with strength and balance (she can not do sit to stands due to knee and some shoulder issues now and Dr said to not do a few of specific machines). Balance/Gait/Functional tests Balance/Special Test Scores Functional Gait Assessment Score: 19 % Disability: 36.6700 CATSIB Score (Max score 120 seconds): 120 Lower Extremity Functional Score: 38 Goals Goals Goal 1:: I HEP Goal Time Frame: 2-4 Weeks Goal 2:: Increase LE strength (at the eval LE strength was LE MMT: R hip flex 11.7 and L 10.7 R knee ext 17.3 and L 14.7 R knee flex 12.4 and L 11.2 R hip abd in supine 9.2 and L 9.4 Pt is able to do 3/4 normal ROM bridge). Goal Time Frame: 2-4 Weeks Goal Progress: Progressing Goal 3:: Be able to stand up on first attempt with 1 UE support Goal Time Frame: 2-4 Weeks Goal Progress: Progressing Goal 4:: Increase balance (at eval FGA 17) Goal Time Frame: 2-4 Weeks Goal Progress: Progressing Goal 5:: Pt to report 50% increase in endurance Goal Time Frame: 2-4 Weeks Anticipated Interventions Anticipated Interventions Patient/Client Instruction: Educate patient on: Condition and Plan of Care For the Purpose of:: To improve muscle performance and motor function, To improve ability to perform ADL's, To increase tolerance to activity/condition/position, To improve performance and independence with ADL's, To decrease level of supervision to perform tasks, To improve ability of physical actions for home/community/work/leisure, To improve gait and locomotor functions, To improve endurance, To improve balance and To improve safety with gait Therapeutic Exercise to Include: Strength training, Endurance training, Balance training, Postural training, Flexibilty training, Gait and locomotor training, Neuromotor development, Active ROM and Dynamic Lumbar Stabilization For the Purpose of:: To improve muscle performance and motor function, To improve ability to perform ADL's, To increase tolerance to activity/con dition/position, To improve performance and independence with ADL's, To decrease level of supervision to perform tasks, To improve ability of physical actions for home/community/work/leisure, To improve gait and locomotor functions, To improve health of tissue, To decrease soft tissue restriction, To improve endurance, To improve balance and To improve safety with gait Functional Training to Include: Gait training For the Purpose of:: To improve gait and locomotor functions and To improve safety with gait Re-Evaluation Ending Re-evaluation ending: Please do not hesitate to contact me at [phone] by phone or if you have questions or concerns regarding this new plan of care! Sincerely, Richelle Nagy, MPT
--- NOTE | 2025-05-22 12:00 | HP.PTDCSUM ---
Discharge Summary D/C summary: It has been my pleasure to treat JULIANNA TUCKER referred by Dr. Erick Blanca MD, with the diagnosis of fatigue and abnormality of gait for a total of 8 visit(s). Discharge Date: 05/22/25 Please see the following information for a summary of their discharge status. Subjective Subjective: Pt was in here last week and working on balance exercises in here. She knows what she has to do and she knows that she has to work on her balance first so she is not so tired. She will try and do the exercises 2-3 times a week. She is doing chair YOGA twice a week. Pain R shoulder pain: Pain Intensity (Out of 10): 1 R knee pain: Pain Intensity (Out of 10): 1 back pain: Pain Intensity (Out of 10): 2 Overall Improvement % Improvement: 30 Objective Objective/Function: R hip flex 11.7 and L 10.8 R knee ext 17.3 and L 14.7 R knee flex 14.6 and L 14.4 Sit to stand: FGA: 22 Goals Goal 1:: I HEP Goal Progress: Goal Met Goal 2:: Increase LE strength (at the eval LE strength was LE MMT: R hip flex 11.7 and L 10.8 R knee ext 17.3 and L 14.7 R knee flex 14.6 and L 14.4 R hip abd in supine 9.2 and L 9.4 Pt is able to do 3/4 normal ROM bridge). Goal Progress: Progressing Goal 3:: Be able to stand up on first attempt with 1 UE support Goal Progress: Goal Met Goal 4:: Increase balance (at eval FGA 17) Goal Progress: Goal Met Goal 5:: Pt to report 50% increase in endurance Goal Progress: Progressing Plan Plan: DC PT to [facility] program D/C Information Discharge Comments: DC PT to [facility] gym routine d/c sentence: If there are questions or concerns regarding this patient's physical therapy, please feel free to call me at [phone]. Thank you for the referral of this patient. Sincerely, Richelle Nagy, MPT Balance/Gait/Functional tests Balance/Special Test Scores Functional Gait Assessment Score: 22 % Disability: 26.6700 CATSIB Score (Max score 120 seconds): 120 Lower Extremity Functional Score: 41 Improvement % Improvement: 30
== END 2025-05-22 19:00 | disposition home or self-care (01) ==
LOC: PT 11:00
PROVIDERS: PCP Internal Medicine; Referring Provider Psychiatry & Neurology Neurology; Visit Provider Psychiatry & Neurology Neurology
DX: R26.9 Unspecified abnormalities of gait and mobility (principal); R53.81 Other malaise
CPT/HCPCS: 97110; 97161; 97530

== ENCOUNTER → 2025-06-01 | Outpatient (CLI) | payer MEDICARE, OTHER, SELFPAY ==
--- NOTE | 2025-06-01 10:45 | BI_ITS ---
EXAM: SCREEN MAMM (CAD) W/NILTON UNI R DATE: 06/01/2025 CLINICAL HISTORY: F, Age 85 y/o , SCREENING Personal history of breast cancer. Prior left mastectomy. Sister with breast cancer. TECHNIQUE: Procedure Code: [id number] Modality: MG Procedure: SCREEN MAMM (CAD) W/NILTON UNI R COMPARISON: Prior exam(s) dated May 31, 2024.. FINDINGS: TISSUE DENSITY: There are scattered areas of fibroglandular density. Bilateral Breast Mammographic Findings: No significant masses, calcifications or other abnormalities are identified. No suspicious masses, areas of developing architectural distortion, or suspicious calcifications. There has been no significant interval change. BI/SCREEN MAMM (CAD) W/NILTON UNI R IMPRESSION: Stable unilateral screening mammogram. OVERALL FINAL ASSESSMENT BI-RADS 1: NEGATIVE. RECOMMENDATION: Routine annual follow-up in 1 Year A letter with findings and recommendations will be mailed to the patient. Reading Location: [place] [address]
== END | disposition home or self-care (01) ==
LOC: OPBI 10:19
PROVIDERS: PCP Internal Medicine; Referring Provider Internal Medicine Hematology & Oncology; Visit Provider Internal Medicine Hematology & Oncology
DX: Z12.31 Encounter for screening mammogram for malignant neoplasm of breast (principal)
CPT/HCPCS: 77063; 77067

== ENCOUNTER 2025-06-05 15:08 | Emergency (ER) | payer MEDICARE, OTHER, SELFPAY ==
[2025-06-05] VITALS (7 sets, daily range): BP systolic 164–179; BP diastolic 68–91; PULSE 67–78; RESP 11–17; TEMP 36.8; O2SAT 99–100; BMI 19.5
--- NOTE | 2025-06-05 15:16 | EKG12_ITS ---
Test Reason : SOB/CP Blood Pressure : */* mmHG Vent. Rate : 67 BPM Atrial Rate : 67 BPM P-R Int : 214 ms QRS Dur : 92 ms QT Int : 428 ms P-R-T Axes : 93 -1 51 degrees QTcB Int : 452 ms Sinus rhythm with 1st degree A-V block Incomplete right bundle branch block Borderline ECG Confirmed by STEPHANIE THAO, JOSE ([id number]), associate editor AMAYA COVARRUBIAS ([id number]) on 06/06/2025 7:32:15 AM Referred By: TA/ER Confirmed By: JOSE BROWN MD
[2025-06-05 15:46] LABS: Hematocrit 32.8 % (37-47); Hemoglobin 11.5 g/dL (12.0-15.0); Immature Granulocytes Count 0.010 X10^3/uL (0.0-0.0); Mean Corp Hgb Conc 35.1 g/dL (32-36); Mean Corpuscular Volume 93.4 fL (81-99); Mean Platelet Vol. 9.7 fl (6.2-12.0); NRBC Flagged by Analyzer 0 % (0-5); Platelet Count 237 K/mm3 (150-450); RBC Distribution Width CV 13.4 % (11.6-14.6); RBC Distribution Width SD 46.2 fl (35.1-43.9); Red Blood Count 3.51 M/mm3 (4.2-5.4); White Blood Count 4.4 K/mm3 (4.4-11.0)
--- NOTE | 2025-06-05 15:58 | ED.VIS.DYS ---
HPI History of Present Illness Chief Complaint: Shortness of Breath [facility] Medical History Vaginal stenosis Nocturia Urge incontinence Leukopenia Hyponatremia Motion sickness Adrenal insufficiency History of atrial flutter Breast pain, right History of breast cancer COVID-19 Chronic diarrhea Osteopenia 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 Lichen sclerosus Atrophic vaginitis TIA (transient ischemic attack) SIADH (syndrome of inappropriate ADH production) Anemia GERD (gastroesophageal reflux disease) Diverticulitis Migraine Osteopenia Nonrheumatic mitral (valve) prolapse Paroxysmal atrial fibrillation Ovarian cyst Compression fracture of L1 lumbar vertebra Paroxysmal atrial flutter Atrial flutter IBS (irritable bowel syndrome) history of blood transfusion 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) Chronic hyponatremia Home Medications ?Medication ?Instructions ?Recorded ?Last Taken ?Type Bilaterl knee high compression #2 ea 05/29/22 Unknown Rx stockings (10-20) calcium carbonate 600 mg PO DAILY 10/14/22 06/05/25 History cholecalciferol (vitamin D3) 10 2,000 unit PO DAILY supplement 10/14/22 06/05/25 History mcg (400 unit) capsule ascorbate calcium (vitamin C) 500 500 mg PO QDAY 06/07/24 06/05/25 History mg tablet esomeprazole magnesium 40 mg See Rx Instructions .Route .COMPLEX 09/09/24 06/05/25 History capsule,delayed release dofetilide 250 mcg capsule 250 mcg PO BID #180 caps 10/06/24 06/05/25 Rx metoprolol succinate 25 mg 25 mg PO .COMPLEX #135 tabs 01/30/25 06/05/25 Rx tablet,extended release 24 hr apixaban 2.5 mg tablet 2.5 mg PO BID #180 TABLETS 02/22/25 06/05/25 Rx famotidine 20 mg tablet 20 mg PO QHS PRN heartburn 02/24/25 06/04/25 History zoledronic acid 4 mg/5 mL 4 mg IV .COMPLEX 02/24/25 11/30/24 History intravenous solution sodium chloride 1,000 mg soluble 1,000 mg PO DAILY 03/24/25 06/04/25 History tablet magnesium oxide 400 mg (241.3 mg 400 mg PO DAILY #90 tabs 04/21/25 06/05/25 Rx magnesium) tablet cranberry 500 mg capsule 500 mg PO BID 05/30/25 06/05/25 History acetaminophen 500 mg capsule 1,000 mg PO Q6H PRN pain 06/05/25 06/04/25 History Allergy/AdvReac Type Severity Reaction Status Date / Time cantaloupe Allergy Severe Anaphylaxis Verified 06/05/25 15:08 grass pollen Allergy Severe Unknown Verified 06/05/25 15:08 Penicillins Allergy Severe Anaphylaxis Verified 06/05/25 15:08 Sulfa (Sulfonamide Allergy Unknown Other Verified 06/05/25 15:08 Antibiotics) mold Allergy Unknown Verified 06/05/25 15:08 pollen extracts Allergy Unknown Verified 06/05/25 15:08 erythromycin base AdvReac Severe Unknown Verified 06/05/25 15:08 lansoprazole (From Prevacid) AdvReac Severe Nausea/Vom/ Verified 06/05/25 15:08 Diarrhea adhesive tape AdvReac Intermediate Rash Verified 06/05/25 15:08 Family History Father Unknown family medical history Mother Uterine cancer Thyroid disorder Kidney disease Hypertension CHF (congestive heart failure) Arthritis Surgical History History of cataract surgery History of colonoscopy (05/2019) History of esophagogastroduodenoscopy (EGD) (05/2019) History of left heart catheterization (09/2012) H/O left mastectomy History of radiofrequency ablation (RFA) procedure for cardiac arrhythmia (08/2013) History of removal of ovarian cyst H/O lymph node biopsy H/O breast biopsy History of dilation and curettage Social History household members: spouse Smoking Status: Never smoker alcohol intake: current alcohol intake frequency: holidays/special occasions only substance use type: does not use caffeine: Yes what type of physical activity do you participate in: walking and yoga frequency: 3-4 times per week seatbelt use: always do you feel safe at home: Yes additional social history: -Tony Patient and are both retired EXAM Physical Exam Const Vital Signs: 06/05/25 15:08 06/05/25 15:35 06/05/25 15:36 Temperature 98.3 F Temperature Source Oral Pulse Rate 78 Respiratory Rate 16 Respiratory Effort Normal Non-Labored Respiratory Depth Normal Respiratory Pattern Normal Blood Pressure 166/76 H Blood Pressure Mean 106 Pulse Ox 100 100 Oxygen Delivery Method Room Air Room Air Room Air 06/05/25 16:08 06/05/25 17:00 06/05/25 18:00 Temperature Temperature Source Pulse Rate 72 67 74 Respiratory Rate 11 L 17 13 Respiratory Effort Respiratory Depth Respiratory Pattern Blood Pressure 165/68 H 179/91 H 164/74 H Blood Pressure Mean 100 120 104 Pulse Ox 99 99 100 Oxygen Delivery Method Room Air Room Air Room Air 06/05/25 18:33 Temperature 98.3 F Temperature Source Pulse Rate 74 Respiratory Rate 13 Respiratory Effort Respiratory Depth Respiratory Pattern Blood Pressure 164/74 H Blood Pressure Mean 104 Pulse Ox 100 Oxygen Delivery Method MDM MDM MDM Narrative Medical decision making narrative: HISTORY OF PRESENT ILLNESS: Chief complaint: Shortness of breath 85-year-old female history of hyponatremia, supravascular disease, paroxysmal A-fib, SIADH, currently on Eliquis, dofetilide presents with shortness of breath. Notes this occurred today while walking up a hill. Notes tightness and pressure in her chest. No she felt lightheaded. Notes is improved at rest. REVIEW OF SYSTEMS: Pertinent positives: Shortness of breath, chest tightness, lightheadedness Pertinent negatives: Leg swelling, hemoptysis, vomiting, syncope PHYSICAL EXAM: Nursing triage notes reviewed, Vital signs reviewed Constitutional: please see mdm HENT: MMM Eyes: Pupils equal round and reactive to light, Extraocular muscles intact Neck: No stridor, no JVD, full neck ROM Lungs: Clear to auscultation, No wheezing or rales. No increased work of breathing, no conversational dyspnea, no accessory muscle use, no nasal flaring. No respiratory distress noted Heart: Regular rate and rhythm, No murmurs, No rubs and No gallops, 2+ distal pulses (radial, femoral, posterior tibial) in all extremities Abdomen: Soft, there is no tenderness, rigidity, rebound or guarding, no obvious peritoneal signs, no palpable pulsatile abdominal masses, no auscultated abdominal bruit : No CVAT Extremities: No edema Neuro: No new focal neurological deficits, cranial nerves II through XII intact, 5/5 strength in all present extremities. Intact sensation to light touch in all present extremities, 2+ reflexes bilateral patella tendons. Skin: No rash or lesions noted MEDICAL DECISION MAKING: Chief Complaint: please see HPI External records reviewed: Reviewed stress test from 2022. Stress test showed normal axis Myocard perfusion test. Ejection fraction was 70% Factors affecting care: As per HPI Social determinants of health: none History obtained from others: Consults: none initially [facility] Narrative: Patient was initially evaluated p.o. 1 hour after initial arrival secondary to poor departmental dynamics including high-volume high acuity. There was currently 30 patients in the department at the time evaluation Patient was initially hemodynamically stable, afebrile and nontoxic-appearing. Exam without focal cardiopulmonary maladies. No stigmata of VTE, CHF. I considered the following differential diagnosis: Pneumonia, COVID, RSV, flu, CHF, ACS, arrhythmia, electrolyte disturbance A broad lab and imaging workup was obtained via triage protocol secondary to poor departmental dynamics to further determine if the patient was suffering from a life-threatening etiology. Initial evaluation per triage protocol included EKG, CBC, BMP, troponin. After my evaluation I added on a chest x-ray, BNP, COVID flu RSV test and ambulatory pulse ox While I considered pulmonary embolism potential etiology the patient's complaints risk of PE is low. She is a low Wells score. She is not hypoxic, tachycardic and she is compliant with Eliquis. As such Evalose patient for PE causing her symptoms ALL IMAGES (IF OBTAINED) HAVE BEEN PERSONALLY REVIEWED AND INTERPRETED BY MYSELF. EKG with normal sinus rhythm, left ax deviation, prolonged interval, first-degree AV block, no sign of high degree block, no sign of A-fib CBC with no leukocytosis, no anemia, no thrombocytopenia High-sensitivity troponin is negative, no evidence of myocardial ischemia x2 I have personally reviewed the patient's chest x-ray. Chest x-ray is unremarkable for pulmonary edema, pneumothorax, pneumonia or focal cardiopulmonary abnormality. BNP within normal limits suggestive no heart failure CBC with no leukocytosis, noted mild anemia at essentially baseline, no BMP with hyponatremia similar to prior, no sign of endorgan hypoperfusion or metabolic acidosis, no acute kidney On reevaluation the patient was evaluated without hypoxia. Today we will maintain 100 percent SpO2 while walking to Discussed hyponatremia. Discussed increasing salt intake. Discussed repeat lab evaluation. Patient was comfortable not being admitted at this time and comfortable following with her primary doctor. The patient and/or family, caregivers express understanding. The patient and/or family, caregivers agrees with the plan. Shared decision making: I will have a discussion with the patient and or visitors regarding risk/benefits of further testing or admission. They will be made aware of of the risk/benefits inherent in this decision they will be given the opportunity to voice understanding. Total critical care time today provided was at least 0 minutes. This excludes separately billable procedures. Critical care time (if documented) is secondary to the patient having high probability of clinically significant/life threatening deterioration in the patient's condition which required my urgent intervention. Impression: 1. Dyspnea 2. History of A-fib 3. Chronic hyponatremia Dispo: Discharge home This note was generated with [employer] dictation software. It may contain incorrect words, spelling, and punctuation that were not noted in review of the chart prior to signing. Lab Data Labs: Laboratory Results - last 24 hr 06/05/25 06/05/25 15:20 17:25 WBC 4.4 RBC 3.51 L Hgb 11.5 L Hct 32.8 L MCV 93.4 MCH 32.8 H MCHC 35.1 RDW Std Deviation 46.2 H RDW Coeff of Idania 13.4 Plt Count 237 MPV 9.7 Immature Gran % (Auto) 0.200 Neut % (Auto) 56.4 Lymph % (Auto) 27.1 [place] % (Auto) 13.1 H Eos % (Auto) 2.5 Baso % (Auto) 0.7 Absolute Neuts (auto) 2.5 Absolute Lymphs (auto) 1.18 Nucleated RBC % 0 Sodium 126 L Potassium 4.2 Chloride 94 L Carbon Dioxide 21.3 Anion Gap 11 BUN 21 H Creatinine 0.94 Estim Creat Clear Calc 40.59 L Est GFR (MDRD) Non-Af 60 BUN/Creatinine Ratio 22.0 H Glucose 151 H Calcium 8.6 Troponin T High Sens 14 Troponin T Hi Sens 2 Hr 13 NT pro BNP II 883 Radiography Diagnostic Testing: Clinical Impression(s) from Imaging Studies Chest X-Ray 06/05/25 16:17 IMPRESSION: No acute cardiopulmonary abnormalities. Reading Location: [facility] Discharge Plan Triage Chief Complaint: Shortness of Breath ED Provider: Denzel Boone Dx/Rx/DC Orders Instructions: ED Dyspnea Prescriptions: No Action (DME) Bilaterl knee high compression stockings (10-20) See Rx Instructions .Route .MEDSUPPLY Qty: 2 0RF Rx Instructions: As directed calcium carbonate 600 mg calcium (1,500 mg) tablet 600 mg PO DAILY esomeprazole magnesium 40 mg capsule,delayed release(DR/EC) See Rx Instructions .ROUTE .COMPLEX Dose Instruction: take 1 capsule by mouth daily Rx Instructions: take 1 capsule by mouth daily; ascorbate calcium (vitamin C) 500 mg tablet 500 mg PO QDAY apixaban 2.5 mg tablet 2.5 mg PO BID Qty: 180 3RF cranberry 500 mg capsule 500 mg PO BID Rx Instructions: administer with meals sodium chloride 1,000 mg Tablet,Soluble 1,000 mg PO DAILY cholecalciferol (vitamin D3) 10 mcg (400 unit) capsule 2,000 unit PO DAILY famotidine 20 mg tablet 20 mg PO QHS PRN (Reason: heartburn) zoledronic acid 4 mg/5 mL solution 4 mg IV .COMPLEX Rx Instructions: 4 mg intravenously [id number]; acetaminophen 500 mg capsule 1,000 mg PO Q6H PRN (Reason: pain) dofetilide 250 mcg capsule 250 mcg PO BID Qty: 180 3RF metoprolol succinate 25 mg tablet extended release 24 hr 25 mg PO .COMPLEX Qty: 135 3RF Rx Instructions: 1/2 tablet (12.5 mg) in the morning and a whole tablet (25 mg) at bedtime magnesium oxide 400 mg (241.3 mg magnesium) tablet 400 mg PO DAILY Qty: 90 3RF Primary Care Provider: Rochelle Brandt Referrals: Rochelle Brandt MD [Primary Care Provider, Internal Medicine] Activity Restrictions/Additional Instructions: Thank you for trusting us with your care today! Your EKG showed a normal sinus rhythm. Your labs and images were reassuring. There is no sign of heart damage, viral infection, bacterial infection, electrolyte disturbances, heart failure. Your sodium level was low today however it is consistent with prior sodium levels for you. The cause of your shortness of breath is unclear at this time however does not appear to be related to a life or limb threatening disease process Please take Tylenol (2 pills, 650 mg), ibuprofen (2 pills, 400 mg) every 6 hours as needed for pain and fever control. Please return to the emergency department if your symptoms change or worsen. Please follow with your primary care physician at the next available appointment for further outpatient evaluation and management. Print Language: Tanzanian Disposition Disposition: Home, Self Care Discharge Date/Time: 06/05/25 18:34
--- NOTE | 2025-06-05 16:17 | RAD_ITS ---
PROCEDURE: CHEST 1 VIEW (PORTABLE) 06/05/2025 REASON FOR EXAM: SOB TECHNIQUE: Frontal view of the chest. FINDINGS: The heart is normal in size. The lungs are hyperaerated but clear. No acute osseous abnormalities. RAD/Chest 1 View (Portable) IMPRESSION: No acute cardiopulmonary abnormalities. Reading Location: [id number]
[2025-06-05 16:22] LABS: Troponin T High Sensitivity 14 ng/L (<=14)
[2025-06-05 16:24] LABS: Anion Gap 11 (5-15); BUN 21 mg/dL (4-19); BUN/Creat Ratio 22.0 RATIO (10-20); Calcium,Total 8.6 mg/dL (7.6-11.0); Carbon Dioxide 21.3 mmol/L (21.0-32.0); Chloride 94 mmol/L (98-108); Estimated Creatinine Clearance 40.59 ml/min (50-250); Glucose 151 mg/dL (70-99); Potassium 4.2 mmol/L (3.3-5.1)
[2025-06-05 16:46] LABS: Pro- Brain NATRIURETIC PEPTIDE 883 pg/mL (<=1800)
[2025-06-05 18:12] LABS: Troponin T High Sens 2 HR 13 ng/L (<=14)
== END 2025-06-05 18:34 | disposition home or self-care (01) ==
PROVIDERS: Emergency Provider Emergency Medicine; PCP Internal Medicine; Visit Provider Emergency Medicine
DX: E87.1 Hypo-osmolality and hyponatremia (principal); I48.0 Paroxysmal atrial fibrillation; R06.00 Dyspnea, unspecified; D64.9 Anemia, unspecified; I44.0 Atrioventricular block, first degree; I34.0 Nonrheumatic mitral (valve) insufficiency; K21.9 Gastro-esophageal reflux disease without esophagitis; M85.80 Other specified disorders of bone density and structure, unspecified site; Z85.3 Personal history of malignant neoplasm of breast; Z90.12 Acquired absence of left breast and nipple; Z87.19 Personal history of other diseases of the digestive system; Z86.73 Personal history of transient ischemic attack (TIA), and cerebral infarction without residual deficits; Z79.01 Long term (current) use of anticoagulants; Z79.899 Other long term (current) drug therapy
CPT/HCPCS: 71045; 80048; 83880; 84484; 85025; 87631; 93005; 94760; 99283; A4216

== ENCOUNTER → 2025-08-17 | Outpatient (CLI) | payer MEDICARE, OTHER, SELFPAY ==
[2025-08-17 10:29] LABS: Anion Gap 8 (5-15); BUN 19 mg/dL (4-19); BUN/Creat Ratio 19.8 RATIO (10-20); Calcium,Total 8.8 mg/dL (7.6-11.0); Carbon Dioxide 26.1 mmol/L (21.0-32.0); Chloride 101 mmol/L (98-108); Glucose 96 mg/dL (70-99); Potassium 4.8 mmol/L (3.3-5.1)
== END | disposition home or self-care (01) ==
LOC: LAB 09:29
PROVIDERS: PCP Internal Medicine; Referring Provider Internal Medicine Nephrology; Visit Provider Internal Medicine Nephrology
DX: E22.2 Syndrome of inappropriate secretion of antidiuretic hormone (principal)
CPT/HCPCS: 36415; 80048

== ENCOUNTER 2025-09-02 16:41 | Emergency (ER) | payer MEDICARE, OTHER, SELFPAY ==
[2025-09-02] VITALS (7 sets, daily range): BP systolic 130–185; BP diastolic 68–111; PULSE 68–80; RESP 16–18; TEMP 36.7–36.9; O2SAT 97–99; BMI 19.5
--- NOTE | 2025-09-02 17:08 | EX.ED.DYSGE1 ---
HPI History of Present Illness Chief Complaint: Palpitations Informant: patient Onset/Context/Timing Onset: Today Context: Gradual Onset Timing: Continuous Quality: Nauseated Location: Generalized Worsened by: Nothing Relieved by: Nothing Narrative Narrative: Patient presents with nausea and palpitations that began today. Patient states that began around noon (approximately 5 hours prior to arrival) today. Patient states she felt like her heart was racing. Patient denies any chest pain. Patient denies any vomiting. Patient admits to some urinary frequency. Patient denies any back pain. Patient denies any shortness of breath or cough. Patient denies any fevers or chills. Patient states she took half of the meclizine that did not help with her nausea. Patient states she also took an extra dofetilide tablet which did not help. [facility] Medical History Vaginal stenosis Nocturia Urge incontinence Leukopenia Hyponatremia Motion sickness Adrenal insufficiency History of atrial flutter Breast pain, right History of breast cancer COVID-19 Chronic diarrhea Osteopenia 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 Lichen sclerosus Atrophic vaginitis TIA (transient ischemic attack) SIADH (syndrome of inappropriate ADH production) Anemia GERD (gastroesophageal reflux disease) Diverticulitis Migraine Osteopenia Nonrheumatic mitral (valve) prolapse Paroxysmal atrial fibrillation Ovarian cyst Compression fracture of L1 lumbar vertebra Paroxysmal atrial flutter Atrial flutter IBS (irritable bowel syndrome) history of blood transfusion 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) Chronic hyponatremia Home Medications ?Medication ?Instructions ?Recorded ?Last Taken ?Type Bilaterl knee high compression #2 ea 05/29/22 Unknown Rx stockings (10-20) calcium carbonate 600 mg PO DAILY 10/14/22 06/05/25 History cholecalciferol (vitamin D3) 10 2,000 unit PO DAILY supplement 10/14/22 06/05/25 History mcg (400 unit) capsule ascorbate calcium (vitamin C) 500 500 mg PO QDAY 06/07/24 06/05/25 History mg tablet esomeprazole magnesium 40 mg See Rx Instructions .Route .COMPLEX 09/09/24 06/05/25 History capsule,delayed release dofetilide 250 mcg capsule 250 mcg PO BID #180 caps 10/06/24 06/05/25 Rx apixaban 2.5 mg tablet 2.5 mg PO BID #180 TABLETS 02/22/25 06/05/25 Rx famotidine 20 mg tablet 20 mg PO QHS PRN heartburn 02/24/25 06/04/25 History zoledronic acid 4 mg/5 mL 4 mg IV .COMPLEX 02/24/25 11/30/24 History intravenous solution sodium chloride 1,000 mg soluble 1,000 mg PO DAILY 03/24/25 06/04/25 History tablet magnesium oxide 400 mg (241.3 mg 400 mg PO DAILY #90 tabs 04/21/25 06/05/25 Rx magnesium) tablet cranberry 500 mg capsule 500 mg PO BID 05/30/25 06/05/25 History acetaminophen 500 mg capsule 1,000 mg PO Q6H PRN pain 06/05/25 06/04/25 History polyethylene glycol 3350 17 4 g PO ONCE 06/08/25 Unknown History gram/dose oral powder (Miralax) meclizine 25 mg tablet 12.5 mg (1/2 x 25 mg) PO TID PRN 08/07/25 Unknown Rx dizziness #45 tabs metoprolol succinate 25 mg 25 mg PO BID #120 tabs 08/09/25 Unknown Rx tablet,extended release 24 hr midodrine 2.5 mg tablet 2.5 mg PO BID PRN 08/31/25 Unknown History Allergy/AdvReac Type Severity Reaction Status Date / Time cantaloupe Allergy Severe Anaphylaxis Verified 09/02/25 16:45 grass pollen Allergy Severe Unknown Verified 09/02/25 16:45 Penicillins Allergy Severe Anaphylaxis Verified 09/02/25 16:45 Sulfa (Sulfonamide Allergy Unknown Other Verified 09/02/25 16:45 Antibiotics) mold Allergy Unknown Verified 09/02/25 16:45 pollen extracts Allergy Unknown Verified 09/02/25 16:45 erythromycin base AdvReac Severe Unknown Verified 09/02/25 16:45 lansoprazole (From Prevacid) AdvReac Severe Nausea/Vom/ Verified 09/02/25 16:45 Diarrhea adhesive tape AdvReac Intermediate Rash Verified 09/02/25 16:45 Family History Father Unknown family medical history Mother Uterine cancer Thyroid disorder Kidney disease Hypertension CHF (congestive heart failure) Arthritis Surgical History History of cataract surgery History of colonoscopy (05/2019) History of esophagogastroduodenoscopy (EGD) (05/2019) History of left heart catheterization (09/2012) H/O left mastectomy History of radiofrequency ablation (RFA) procedure for cardiac arrhythmia (08/2013) History of removal of ovarian cyst H/O lymph node biopsy H/O breast biopsy History of dilation and curettage Social History household members: spouse Smoking Status: Never smoker alcohol intake: current alcohol intake frequency: holidays/special occasions only substance use type: does not use caffeine: Yes what type of physical activity do you participate in: walking and yoga frequency: 3-4 times per week seatbelt use: always do you feel safe at home: Yes additional social history: -Tony Patient and are both retired ROS ROS ED Constitutional Constitutional ED: Denies chills or fever(s) Eyes Eyes: Denies blurry vision or change in vision ENT ENT ED: Denies rhinorrhea or sore throat Cardiovascular Cardiovascular: Reports palpitations and racing heartbeat; Denies chest pain Respiratory/Chest Respiratory/Chest: Denies cough or dyspnea Gastrointestinal Gastrointestinal: Reports vomiting; Denies nausea Genitourinary Genitourinary ED: Reports urinary frequency; Denies dysuria or hematuria Musculoskeletal Musculoskeletal: Denies back pain or neck pain Integumentary Denies abscess or rash Neurologic Neurologic: Denies headache(s) or weakness Allergic/Immunologic Allergic/Immunologic ED: Denies mouth swelling or urticaria EXAM Physical Exam Const Vital Signs: 09/02/25 16:42 09/02/25 17:22 09/02/25 17:41 Temperature 98.5 F Temperature Source Oral Pulse Rate 80 79 Respiratory Rate 18 18 Blood Pressure 185/92 H 157/78 H Blood Pressure Mean 123 104 Pulse Ox 97 98 Oxygen Delivery Method Room Air Room Air 09/02/25 18:00 09/02/25 18:58 09/02/25 19:58 Temperature Temperature Source Pulse Rate 78 78 72 Respiratory Rate 18 18 16 Blood Pressure 154/76 H 135/111 H 135/72 H Blood Pressure Mean 102 119 93 Pulse Ox 98 98 99 Oxygen Delivery Method Room Air 09/02/25 21:00 Temperature Temperature Source Pulse Rate 68 Respiratory Rate 16 Blood Pressure 144/71 H Blood Pressure Mean 95 Pulse Ox 98 Oxygen Delivery Method Room Air Positive well nourished and well developed Constitutional Narrative: BMI is 19.5. General Appearance ED: well developed HEENT Reports moist mucous membranes Neck supple and no JVD Resp normal respiratory effort and clear to auscultation bilaterally Cardio regular rate and regular rhythm GI non-tender and non-distended Palpation: soft Extremity normal to inspection General Extremety ED: Negative for edema or tenderness General Extremity: Negative for edema Neuro oriented x3, CN's II-XII intact bilaterally and no sensory deficits noted Sensorium / Orientation: alert Motor Exam: strength 5/5 throughout Psych mental status grossly normal MDM MDM MDM Narrative Medical decision making narrative: Differential diagnose includes urinary tract infection, dehydration, electrolyte abnormality, cardiac dysrhythmia, cardiac ischemia, and anxiety. EKG will be obtained to assess for cardiac dysrhythmia and cardiac ischemia. Chest x-ray will be obtained to assess for pneumonia or bronchitis. CBC will be obtained to assess for leukocytosis and anemia. Basic metabolic profile will be obtained to assess for electrolyte abnormality and renal function. High-sensitivity troponin will be obtained to assess for cardiac ischemia. 2-hour repeat high-sensitivity troponin will be obtained to assess for ongoing cardiac ischemia. Urinalysis will be obtained to assess for urinary tract infection and hematuria. History & Record Review Additional record(s) reviewed:: Prior labs Lab Data Attestation: I reviewed the patient's lab results. Lab results narrative: CBC was reviewed and was within normal limits. Basic metabolic profile was reviewed. Sodium was slightly low 130 and chloride was slightly low at 93. Glucose was mildly elevated at 137. The remainder is within normal limits. Initial high-sensitivity troponin was reviewed and was normal at 13. 2-hour repeat high-sensitivity troponin was reviewed and was also 13. Urinalysis was reviewed. There is no evidence of urinary tract infection or hematuria. Labs: Laboratory Results - last 24 hr 09/02/25 09/02/25 09/02/25 16:55 19:23 20:52 WBC 5.6 RBC 4.12 L Hgb 13.2 Hct 38.1 MCV 92.5 MCH 32.0 MCHC 34.6 RDW Std Deviation 45.1 H RDW Coeff of Idania 13.3 Plt Count 248 MPV 10.1 Immature Gran % (Auto) 0.200 Neut % (Auto) 52.1 Lymph % (Auto) 39.3 [place] % (Auto) 7.3 Eos % (Auto) 0.4 Baso % (Auto) 0.7 Absolute Neuts (auto) 2.9 Absolute Lymphs (auto) 2.21 Nucleated RBC % 0 Sodium 130 L Potassium 3.8 Chloride 93 L Carbon Dioxide 23.5 Anion Gap 14 BUN 15 Creatinine 0.83 Estim Creat Clear Calc 45.81 L Est GFR (MDRD) Non-Af 70 BUN/Creatinine Ratio 18.2 Glucose 137 H Calcium 9.0 Troponin T High Sens 13 D Troponin T Hi Sens 2 Hr 13 Urine Color Yellow Urine Clarity Clear Urine pH 7.0 Ur Specific [place] 1.010 Urine Protein 15 H Urine Glucose (UA) Normal Urine Ketones 15 H Urine Occult Blood 50 H Urine Nitrite Negative Urine Bilirubin Negative Urine Urobilinogen Normal Ur Leukocyte Esterase 25 H Urine RBC 0-5 SEEN Urine WBC 0-5 SEEN Ur Squamous Epith Cells 0-5 SEEN Urine Bacteria 0 SEEN Urine Mucus 0 SEEN Radiography Diagnostic Testing: Clinical Impression(s) from Imaging Studies Chest X-Ray 09/02/25 17:18 IMPRESSION: Hyperinflated lungs may reflect pulmonary/COPD. Right lower lobe opacity not excluded. Midthoracic severe vertebral compression deformity of indeterminate acuity although new since 12/08/2023. Reading Location: [facility] PA and lateral chest x-ray was obtained. There are 2 views. On my independent interpretation, lung [place] show evidence of COPD. There is normal cardiac silhouette. Bony thorax shows some compression deformities of indeterminate acuity. There is no acute process noted. Radiologist also interpreted the x-ray and agrees. EKG Initial EKG: Attestation: I personally reviewed and interpreted this EKG as follows: Interpretation: Sinus Rhythm (82), No Acute Injury Pattern and RBBB (Incomplete) Comments: EKG was obtained. On my independent interpretation, it showed a normal sinus rhythm with first-degree AV block with a rate of 82. SC interval was prolonged at 226 ms. QRS interval was normal at 106 ms. QTc interval was normal at 469 ms. [place] was normal. There is left ventricular hypertrophy. There are nonspecific ST changes wave changes. Prior EKG tracings: available for review Prior: Unchanged (08/09/2025) Treatment and Re-Evaluation :: Patient was advised of her findings. Patient is feeling better on reevaluation. Patient has a HEART score of 3. Patient was advised that this is low risk for acute cardiac event. Patient was instructed to follow-up with her primary care physician in 5 to 7 days. Patient was instructed to return if worse in any way. Patient understood and was agreeable with plan. All questions were answered. Discharge Plan Triage Chief Complaint: Palpitations Other Complaint: Complaint Nausea/Vomiting ED Provider: Mayur Tabares Dx/Rx/DC Orders Clinical Impression: Heart palpitations, Nausea Instructions: ED Heart Palpitations Prescriptions: No Action (DME) Bilaterl knee high compression stockings (10-20) See Rx Instructions .Route .MEDSUPPLY Qty: 2 0RF Rx Instructions: As directed calcium carbonate 600 mg calcium (1,500 mg) tablet 600 mg PO DAILY esomeprazole magnesium 40 mg capsule,delayed release(DR/EC) See Rx Instructions .ROUTE .COMPLEX Dose Instruction: take 1 capsule by mouth daily Rx Instructions: take 1 capsule by mouth daily; ascorbate calcium (vitamin C) 500 mg tablet 500 mg PO QDAY apixaban 2.5 mg tablet 2.5 mg PO BID Qty: 180 3RF midodrine 2.5 mg tablet 2.5 mg PO BID PRN Rx Instructions: do not give last dose of day after 6PM or within 4 hrs of bedtime meclizine 25 mg tablet 12.5 mg PO TID PRN (Reason: dizziness) Qty: 45 2RF polyethylene glycol 3350 [Miralax] 17 gram/dose powder 4 g PO ONCE cranberry 500 mg capsule 500 mg PO BID Rx Instructions: administer with meals sodium chloride 1,000 mg Tablet,Soluble 1,000 mg PO DAILY cholecalciferol (vitamin D3) 10 mcg (400 unit) capsule 2,000 unit PO DAILY famotidine 20 mg tablet 20 mg PO QHS PRN (Reason: heartburn) zoledronic acid 4 mg/5 mL solution 4 mg IV .COMPLEX Rx Instructions: 4 mg intravenously [id number]; acetaminophen 500 mg capsule 1,000 mg PO Q6H PRN (Reason: pain) dofetilide 250 mcg capsule 250 mcg PO BID Qty: 180 3RF magnesium oxide 400 mg (241.3 mg magnesium) tablet 400 mg PO DAILY Qty: 90 3RF metoprolol succinate 25 mg tablet extended release 24 hr 25 mg PO BID Qty: 120 3RF Primary Care Provider: Rochelle Brandt Referrals: Rochelle Brandt MD [Primary Care Provider, Internal Medicine] - 3-5 Days Print Language: Nepali Disposition Disposition: Home, Self Care
--- NOTE | 2025-09-02 17:18 | RAD_ITS ---
PROCEDURE: CHEST PA AND LATERAL 09/02/2025 REASON FOR EXAM: CHEST PAIN TECHNIQUE: Procedure Code: RADCXR Modality: DX Procedure: CHEST PA AND LATERAL COMPARISON: 12/08/2023 FINDINGS: Hyperinflated lungs may reflect pulmonary/COPD. Right lower lobe opacity not excluded. No pleural effusion or pneumothorax. Cardiac silhouette is within normal limits. Midthoracic severe vertebral compression deformity of indeterminate acuity although new since 12/08/2023. RAD/Chest PA and Lateral IMPRESSION: Hyperinflated lungs may reflect pulmonary/COPD. Right lower lobe opacity not e xcluded. Midthoracic severe vertebral compression deformity of indeterminate acuity alth ough new since 12/08/2023. Reading Location: [id number]
--- NOTE | 2025-09-02 17:18 | EKG12_ITS ---
Test Reason : PALPS Blood Pressure : */* mmHG Vent. Rate : 82 BPM Atrial Rate : 82 BPM P-R Int : 226 ms QRS Dur : 106 ms QT Int : 402 ms P-R-T Axes : 91 26 71 degrees QTcB Int : 469 ms Sinus rhythm with 1st degree A-V block Incomplete right bundle branch block Moderate voltage criteria for LVH, may be normal variant ( Sokolow-Pratt , Jose product ) Borderline ECG Confirmed by Zachariah Bahena ([id number]), pre certification specialist PASTOR FREED ([id number]) on 09/05/2025 11:22:06 AM Also confirmed by Zachariah Bahena ([id number]), pre certification specialist PASTOR FREED ([id number]) on 09/06/2025 10:22:18 AM Referred By: ELTON/NOEL Confirmed By: Zachariah Bahena
[2025-09-02 17:26] LABS: Hematocrit 38.1 % (37-47); Hemoglobin 13.2 g/dL (12.0-15.0); Immature Granulocytes Count 0.010 X10^3/uL (0.0-0.0); Mean Corp Hgb Conc 34.6 g/dL (32-36); Mean Corpuscular Volume 92.5 fL (81-99); Mean Platelet Vol. 10.1 fl (6.2-12.0); NRBC Flagged by Analyzer 0 % (0-5); Platelet Count 248 K/mm3 (150-450); RBC Distribution Width CV 13.3 % (11.6-14.6); RBC Distribution Width SD 45.1 fl (35.1-43.9); Red Blood Count 4.12 M/mm3 (4.2-5.4); White Blood Count 5.6 K/mm3 (4.4-11.0)
[2025-09-02 17:46] LABS: Anion Gap 14 (5-15); BUN 15 mg/dL (4-19); BUN/Creat Ratio 18.2 RATIO (10-20); Calcium,Total 9.0 mg/dL (7.6-11.0); Carbon Dioxide 23.5 mmol/L (21.0-32.0); Chloride 93 mmol/L (98-108); Estimated Creatinine Clearance 45.81 ml/min (50-250); Glucose 137 mg/dL (70-99); Potassium 3.8 mmol/L (3.3-5.1); Troponin T High Sensitivity 13 ng/L (<=14)
[2025-09-02] MEDS: 0.9% Normal Saline (1000mL) 1,000 ML 999 ML IV (17:50)
--- OUTSIDE RECORDS SUMMARY | 2025-09-02 17:55 | XMS RPT_ITS | CCD ---
Author Organization [facility] Care Team Providers [place] [facility] Coordinator Name Role Phone Roof SOCK FOLDER, Handy Sullivan Unavailable Dr. Rochelle Hackett Primary [...] Provider Dr. Erick Blanca Attending Provider Silva SOCK FOLDER, SOCK FOLDER-C Tomeka Attending Provider Jose SOCK FOLDER, SOCK FOLDER-C Carolyn Attending Provider Dr. Rochelle Hackett Primary Care Provider Dr. Rochelle Hackett Referring Provider Dr. Erick Blanca Referring Provider Dr. Erick Blanca Other Provider Dr. Eagle Enciso Other Provider Dr. Jamel Carty Attending Provider Dr. Rochelle Hackett Primary Care Provider Dr. Rochelle Hackett Referring Provider Dr. Erick Blanca Attending Provider Silva SOCK FOLDER, SOCK FOLDER-C Tomeka Attending Provider Jose SALVADOR, SOCK FOLDER-C Carolyn Attending Provider Dr. Erick Blanca Referring Provider Dr. Erick Blanca Other Provider Dr. Eagle Enciso Other Provider Dr. Jamel Carty Attending Provider RIGOBERTO David Attending Provider Dr. Rochelle Hackett Primary Care Provider Dr. Rochelle Hackett Referring Provider Dr. Brian Cooley Attending Provider RIGOBERTO David Referring Provider RIGOBERTO David Other Provider Roof SOCK FOLDER, SOCK FOLDER-Eri Sullivan Attending Provider Dr. Rochelle Hackett Primary Care Provider Dr. Rochelle Hackett Referring Provider Dr. Brian Cooley Referring Provider [phone] Erick Blanca Attending Provider Dr. Erick Blanca Referring Provider Silva SOCK FOLDER, MODESTO-Eri Eckert Attending Provider Dr. Rochelle Hackett Primary Care Provider Dr. Rochelle Hackett Referring Provider Dr. Rochelle Hackett Primary Care Provider Dr. Brian Cooley Attending Provider [phone] Brian Cooley Referring Provider [phone] RIGOBERTO David Referring Provider RIGOBERTO David Other Provider [phone] Yvonne SOCK FOLDER, SOCK FOLDER-Eri Sullivan Attending Provider Dr. Erick Blanca Attending Provider Dr. Erick Blanca Referring Provider Dr. Rochelle Hackett Referring Provider Silva SOCK FOLDER, SOCK FOLDER-C Tomeka Attending Provider Dr. Viet Ortez Emergency Provider Dr. Michelle Hunt Admit Provider Dr. Michelle Hunt Other Provider Dr. Marty Bassett Attending Provider Dr. Marty Bassett Other Provider Dr. Rochelle Hackett Primary Care [...] Miguel Angel CHENG, Jane Ventura Unavailable Older ANTENNA RIGGER.ALMOND BLANCHER, Al Unavailable Safia CHENG, Sofía Unavailable Amador CAI, Anayeli Unavailable Dr. Rochelle Hackett MD Primary Care Provider Dr. Rochelle Hackett MD Referring Provider Dr. Brian Cooley MD Attending Provider Dr. Larissa Nguyễn MD Attending Provider Dr. Carlos Sheth MD Referring Provider Dr. Maya Sal MD Attending Provider Dr. Maya Sal MD Referring Provider Dr. Tejinder Mora MD Attending Provider Dr. Tejinder Mora MD Emergency Provider Fernie THAO, Dr. Guillermo Attending Provider Fernie THAO, Dr. Guillermo Referring Provider Dr. Rochelle Hackett MD Attending Provider Miguel Angel ROLDANC, Jane Ventura Unavailable Safia CHENG, Sofía Unavailable GANTA, ROCHELLE C Referring Unavailable MAYA SAL Attending Unavailable GANTA, ROCHELLE C Primary Care Unavailable VANDANA ADAMS Attending Unavailable GANTA, ROCHELLE C Primary Care Unavailable GANTA, ROCHELLE C Referring Unavailable Amador CAI, Anayeli Unavailable MELISSA MAYORGA Attending Unavailable GANTA, ROCHELLE Referring Unavailable GANTA, ROCHELLE Primary Care Unavailable GANTA, ROCHELLE Referring Unavailable GANTA, ROCHELLE Primary Care Unavailable GANTA, ROCHELLE Referring Unavailable GANTA, ROCHELLE Primary Care Unavailable SARAY BOWSER Attending Unavailable GANTA, ROCHELLE Primary Care Unavailable VETOVITZ, MAGGI Referring Unavailable GANTA, ROCHELLE Primary Care Unavailable VETOVITZ, MAGGI Attending Unavailable VETOVITZ, MAGGI Referring Unavailable GANTA, ROCHELLE Primary Care Unavailable VETOVITZ, MAGGI Referring Unavailable GANTA, ROCHELLE Primary Care Unavailable VETOVITZ, MAGGI Attending Unavailable VETOVITZ, MAGGI Referring Unavailable GANTA, ROCHELLE Primary Care Unavailable GANTA, ROCHELLE Primary Care Unavailable SOL HARVEY Attending Unavailable GANTA, ROCHELLE Primary Care Unavailable VETOVITZ, MAGGI Referring Unavailable VETOVITZ, MAGGI Attending Unavailable GANTA, ROCHELLE Primary Care Unavailable AL NICHOLE Attending Unavailable OLDER, AL Referring Unavailable GANTA, ROCHELLE Primary Care Unavailable GANTA, ROCHELLE Attending Unavailable GANTA, ROCHELLE Primary Care Unavailable GANTA, ROCHELLE Referring Unavailable GANTA, ROCHELLE Primary Care Unavailable GANTA, ROCHELLE Attending Unavailable GANTA, ROCHELLE Primary Care Unavailable GANTA, ROCHELLE Attending Unavailable GANTA, ROCHELLE Primary Care Unavailable GANTA, ROCHELLE Primary Care Unavailable TESTSOL CHUN Attending Unavailable TESTRASOL FAY Referring Unavailable GANTA, ROCHELLE Primary Care Unavailable OLDERAL Attending Unavailable OLDER, AL Referring Unavailable GANTA, ROCHELLE Primary Care Unavailable Tyrel, Cris Consulting Unavailable Tyrel, Cris Admitting Unavailable Ganta, Rochelle Primary Care Unavailable Deni, Trevon Attending Unavailable Tanphaichitr, Natthavat Consulting Unavaila ble Koram, Tania Jennifer Consulting Unavailable Carlos Sheth Referring Unavailable Isckarus, Louiseour Attending Unavailable Ganta, Rochelle Primary Care Unavailable Magalang, [place] Referring Unavailable Ganta, Rochelle Primary Care Unavailable Magalang, Maya Attending Unavailable Denzel Boone Attending Unavailable Ganta, Rochelle Primary Care Unavailable Ganta, Rochelle Primary Care Unavailable Mora, Tejinder Attending Unavailable Tyrel, Cris Consulting Unavailable Tyrel, Cris Admitting Unavailable Koram, Tania Jennifer Attending Unavailable Ganta, Rochelle Primary Care Unavailable Tanphaichitr, Natthavat Consulting Unavaila ble Koram, Tania Jennifer Consulting Unavailable Tyrel, Cris Attending Unavailable Tyrel, Cris Consulting Unavailable Tyrel, Cris Admitting Unavailable Ganta, Rochelle Primary Care Unavailable Deni, Trevon Attending Unavailable Deni, Trevon Consulting Unavailable Yasir, Brian Referring Unavailable Ganta, Rochelle Primary Care Unavailable Yasir, Brian Attending Unavailable Baddour, Erick Referring Unavailable Ganta, Rochelle Primary Care Unavailable Baddour, Erick Attending Unavailable Ganta, Rochelle Primary Care Unavailable Jayjay Bailey Attending Unavailable Ganta, Rochelle Referring Unavailable Baddour, Erick Attending Unavailable Ganta, Rochelle Primary Care Unavailable Ganta, Rochelle Referring Unavailable Skruck Pamella Attending Unavailable Ganta, Rochelle Primary Care Unavailable Yasir, Okarche Attending Unavailable Ganta, Rochelle Primary Care Unavailable Ganta, Rochelle Referring Unavailable Baddour, Erick Attending Unavailable Ganta, Rochelle Primary Care Unavailable Ganta, Rochelle Referring Unavailable Skruck, Pamella Attending Unavailable Ganta, Rochelle Primary Care Unavailable WyPamela hernandez Attending Unavailable Ganta, Rochelle Referring Unavailable Ganta, Rochelle Primary Care Unavailable WyneskiPamela Attending Unavailable Ganta, Rochelle Referring Unavailable Ganta, Rochelle Primary Care Unavailable Skruck, Pamella Attending Unavailable Ganta, Rochelle Primary Care Unavailable Isckarus, Mansour Referring Unavailable Isckarus, Mansour Attending Unavailable Ganta, Rochelle Primary Care Unavailable Ganta, Rochelle Primary Care Unavailable Ganta, Rochelle Attending Unavailable Prayson, Toribio Referring Unavailable Ganta, Rochelle Primary Care Unavailable Toribio Marcos Attending Unavailable Pamella España Attending Unavailable Ganta, Rochelle Primary Care Unavailable Pamela Prince Attending Unavailable Ganta, Rochelle Referring Unavailable Ganta, Rochelle Primary Care Unavailable Pamela Prince Attending Unavailable Ganta, Rochelle Referring Unavailable Ganta, Rochelle Primary Care Unavailable Pamela Prince Attending Unavailable Ganta, Rochelle Referring Unavailable Ganta, Rochelle Primary Care Unavailable Larissa Nguyễn Attending Unavailable Ganta, Rochelle Primary Care Unavailable Ganta, Rochelle Referring Unavailable Pamella España Attending Unavailable Ganta, Rochelle Primary Care Unavailable Fernie, Jayaprakas Referring Unavailable Ganta, Rochelle Primary Care Unavailable Fernie, Jayaprakas Attending Unavailable Pamela Prince Attending Unavailable Ganta, Rochelle Primary Care Unavailable Ganta, Rochelle Referring Unavailable Girish Jay Attending Unavailable Ganta, Rochelle Primary Care Unavailable Allergies Allergy Classification Reported Allergen(s) Allergy Type Date of Onset Reaction(s) Facility (20 sources) Adhesive Tape; Translations: [ADHESIVE TAPE] allergy to substance 7 Unknown, Rash [facility] Work Phone: [phone] (20 sources) bee pollen; Translations: [POLLEN] allergy to substance 5 unknown [facility] Work Phone: [phone] (20 sources) cantaloupe allergenic extract; Translations: [CANTALOUPE] Drug Allergy 5 unknown, Anaphylaxis [facility] Work Phone: [phone] (20 sources) erythromycin; Translations: [ERYTHROMYCIN] Drug Allergy 5 GI Upset [facility] Work Phone: [phone] (20 sources) Grass pollen; Translations: [GRASS POLLEN] drug allergy 5 unknown [facility] Work Phone: [phone] (3 sources) lansoprazole Drug Allergy 7 unknown [facility] Work Phone: [phone] (20 sources) mold extract; Translations: [MOLD] Drug Allergy 5 unknown [facility] Work Phone: [phone] (3 sources) penicillin Drug Allergy 1 Inside of mouth swelled [facility] Work Phone: [phone] (3 sources) Sulfonamides (Antibiotic) drug allergy 7 unknown [facility] Work Phone: [phone] (20 sources) Erythromycin Drug Allergy 2 Unknown [facility] Comment on above: STOMACH PAIN (20 sources) lansoprazole; Translations: [LANSOPRAZOLE] Drug Allergy 4 Diarrhea [facility] Work Phone: Comment on above: NAUSEA (20 sources) Penicillins; Translations: [PENICILLINS] Allergy to substance 5 Rash, Swelling [facility] Work Phone: (20 sources) Pollen Allergy to substance 2 Unknown [facility] (20 sources) Adhesive Tape; Translations: [ADHESIVE TAPE (ROSINS)] Allergy to substance 4 Rash [facility] Work Phone: (20 sources) Sulfonamides (Antibiotic); Translations: [SULFA (SULFONAMIDE ANTIBIOTICS)] Propensity to adverse reactions 5 [facility] Work Phone: (20 sources) Sulfonamides (Antibiotic) Allergy to substance 2 Other [facility] (20 sources) Vibegron; Translations: [VIBEGRON] Drug Intolerance 3 Diarrhea [facility] Work Phone: (2 sources) *Adhesive Tape Propensity to adverse reactions 3 Itching, Swelling, Redness [facility] Work Phone: (1 source) lansoprazole Drug Allergy 5 [facility] (1 source) Pollen Drug allergy (disorder) 5 [facility] (1 source) Sulfonamides (Antibiotic) Drug allergy (disorder) 5 [facility] (1 source) erythromycin base Drug allergy (disorder) 5 [facility] Medications Current Medications Medication Drug Class(es) [...] One tablet by mouth twice daily DOFETILIDE [id number] Brian Cooley MD Start: 07-21-2013 End: 09-28-2013 take 1 tablet by mouth twice daily TIKOSYN 250 MCG CAPS One tablet by mouth twice daily DOFETILIDE [id number] Brian Cooley MD Start: 07-20-2013 End: 10-06-2024 Dofetilide 250 mcg capsule Discontinued 0 .ROUTE .COMPLEX 180 October 12, 2023 9:07am October 06, 2024 9:06am TAKE 1 CAPSULE EVERY 12 HOURS FOR ATRIAL FIBRILLATION Comment on above: Take 250 mcg by mout h twice daily. doxycycline hyclate 100 mg oral capsule (5 sources) Tetracycline-class Drug Start: 04-03-20 End: 04-17-20 take 1 capsule by mouth twice daily doxycycline hyclate (VIBRAMYCIN) 100 mg capsule Indications: Tick bite of pelvic region, initial encounter Take 1 capsule by mouth two times a day for 14 days. 28 capsule 04/03/2025 04/17/2025 Active Ergocalciferol (20 sources) Provitamin D2 Compound Start: 10-07-19 ergocalciferol(VITAM IN D 400 UNIT CAP) Take 1,000 Units by mouth once daily. 0 10/07/2021 Active Comment on above: Take 1,000 Units by mouth once daily. esomeprazole 40 mg delayed release oral capsule (20 sources) Proton Pump Inhibitor Start: 12-19-19 take 1 capsule by mouth once daily Esomeprazole Magnesium Active 0 .ROUTE .COMPLEX December 18, 2022 9:21am take 1 capsule by mouth daily Start: 12-18-2022 take 1 capsule by mo uth once daily Esomeprazole Magnesium Active 0 .ROUTE [...] 10 M G CHEW As needed FAMOTIDINE [id number] Jacquelin Mclean Start: 12-19-2010 End: 07-20-2014 PEPCID AC 10 MG CHEW As need ed FAMOTIDINE [id number] Brian Cooley MD take 10 mg by mouth before mealtime Famotidine (PEPCID AC) 10 MG PO CHEW as needed. Active Comment on above: Take 1 tablet by louise th at bedtime as needed. take 1 tablet by louise th at bedtime if needed ferrous sulfate 325 mg oral tablet (1 source) Start: 03-08-2024 take 1 tablet by mouth once daily Ferrous Sulfate (Ferosul) 325 mg (65 mg iron) tablet Active 325 mg PO DAILY March 08, 2024 12:00am Magnesium Glycinate 120mg 3 at night Stress, blood sugar, thyroid/hormones/adr enals/sleep/energy/t oxins/muscles/consti pation/asthma (20 sources) Start: 03-21-2021 Magnesium Glycinate 120mg 3 at night Stress, blood sugar, thyroid/hormones/ad renals/sleep/energy /toxins/muscles/con stipation/asthma Work up to 3 capsules with meals at night - can cause loose stools 0 03/21/2021 Active Comment on above: Work up to 3 capsule s with meals at night - can cause loose stools meclizine (20 sources) Antiemetic Start: 10-30-2024 meclizine Active .ROUTE as needed for dizziness, nausea October 30, 2024 1:00am [...] TABS as needed for nausea MECLIZINE HCL [id number] Evangelina Armando RN Start: 04-07-2016 MECLIZINE HCL 25 MG TABS as needed MECLIZINE HCL [id number] Evangelina Armando RN Start: 12-19-2010 End: 09-08-2013 MECLIZINE HCL 12.5 MG TABS A s needed, takes rarely MECLIZINE HCL [id number] Debra Lueng RN Comment on above: Take 1 tablet by louise th every 6 hours as needed (dizziness). midodrine [...] on above: Take 4 capsules by m outh twice daily for 5 days. nitrofurantoin, macrocrystals [...] above: Take 1 capsule by mo uth twice daily for 5 days. Take 1 [...] oral tablet (20 sources) Start: 03-03-20 End: 09-09-20 take 1 tablet by mouth once daily [...] 2020 11:09am tiZANidine 2 mg oral tablet (20 sources) Central alpha-2 Adrenergic Agonist Start: 11-02-2024 [...] MG TABS As needed, takes occasionally ACETAMINOPHEN [id number] Jacquelin Mclean take 2 tablets by mo mnh every six hours as needed acetaminophen (TYLENOL) [...] One tablet by mouth daily ASCORBIC ACID [id number] Brian Cooley MD ascorbic acid 113 mg [...] TABS One tablet by mouth daily ASPIRIN [id number] Tanesha Britt PA-C Start: 12-19-2010 End: 09-29-2024 [...] take 1 tablet by mouth once daily betamethasone 3 mg/ml / betamethasone acetate 3 mg/ml injectable suspension (2 sources) Corticosteroid Start: 04-24-2025 End: 04-24-2025 betamethasone acetate-betamethas one sodium phosphate 6 mg injection (CELESTONE) Start: 04-24-2025 End: 04-24-2025 6 mg, Injection - FOR ORTHO USE ONLY, ONCE, 1 dose, Starting on Thu04/24/25 at 1416, Until Thu04/24/25 at 1416 BREAST PROSTHESIS (3 sources) Start: 05-11-2017 BREAST PROSTHE SIS Left breast cancer BREAST PROSTHESIS Amaya Del Toro PA-C BREAST PROSTHESIS, LEFT (3 sources) Start: 05-11-2017 BREAST PROSTHE SIS, LEFT Left breast cancer BREAST PROSTHESIS, LEFT Amaya Del Toro PA-C calcium carbonate 800 mg [...] tablets by mouth daily CALCIUM CARBONATE-VITAMIN D [id number] Jacquelin Mclean calcium citrate / vitamin D (3 sources) Start: 12-19-2010 take 1 tablet by mouth once daily CALCIUM 600-200 MG-UNIT TABS One tablet by mouth daily CALCIUM-VITAMIN D [id number] Evangelina Armando RN ciclopirox 7.7 mg/ml topical lotion (3 sources) Start: 11-03-2016 LOPROX 0.77 % (Susp) KIT apply as directed CICLOPIROX OLAMINE-CLEANSER [id number] Evangelina Armando RN [employer] Allergen Free ([employer]) (1 source) Start: 03-21-2021 End: 07-17-2021 [employer] Principal Allergen Free ([employer]) For adults, take 1 capsule before [...] oral tablet (6 sources) Start: 011 End: DRAMAMINE 50 MG TABS As needed, takes rarely DIMENHYDRINATE [id number] Debra Leung RN docusate sodium 100 mg oral capsule (8 sources) Start: End: take 1 tablet by mouth twice daily COLACE 100 MG CAPS One tablet by mouth twice daily DOCUSATE SODIUM [id number] Evangelina Armando RN End: 09-29-2024 take 100 mg by mouth twice daily Docusate Calcium (STOOL SOFTENER PO) Indications: Sinus pause , A-fib , Pulmonary vein stenosis , Pre-procedure lab exam , 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 09/29/2024 Discontinued (Therapy completed) estrogens, conjugated (halfway) 0.625 mg/ml vaginal cream (11 sources) Estrogen Start: 02-22-2016 PREMARIN 0.625 MG/GM CREA as directed ESTROGENS, CONJUGATED [id number] Brian Cooley MD Start: 12-19-2010 End: 09-08-2013 PREMARIN 0.625 MG/GM CREA as directed ESTROGENS, CONJUGATED [id number] Brian Cooley MD estrogens conjug ated (PREMARIN) 0.625 MG/GM VA CREA by Vaginal route every 7 days. Active flecainide acetate 50 mg oral tablet (20 sources) Antiarrhythmic Start: 06-29-2013 End: 07-15-2013 FLECAINIDE ACETATE 50 MG TABS One and 1/2 tablets by mouth twice daily FLECAINIDE ACETATE [id number] Evangelina Armando RN Start: 09-13-2012 take 1 tablet by louise once daily FLECAINIDE ACETATE 100 MG TABS One half tablet by mouth once daily FLECAINIDE ACETATE [id number] Evangelina Armando RN Start: 12-19-2010 End: 09-01-2012 take 1 tablet by mouth twice daily FLECAINIDE ACETATE 100 MG TABS One tablet by mouth twice daily FLECAINIDE ACETATE [id number] Brian Cooley MD fludrocortisone acetate 0.1 mg oral tablet (20 sources) Start: 04-07-2023 End: 09-09-2024 take 0.5 tablet by mouth once Fludrocortisone [...] tabl et Discontinued 0.05 mg .ROUTE .COMPLEX October 14, 2022 3:43pm April 07, 2023 2:14pm 0.05 mg po every Thursday, Thursday and Thursday Start: 05-29-2022 End: 04-07-2023 take 0.05 mg by mouth once Fludrocortisone Discontinue d 0.05 MG .ROUTE .COMPLEX October 14, 2022 2:43pm April 07, 2023 [...] 1 tablet every Thursday Start: 11-13-2021 End: 05-18-2025 fludrocortisone (FLORINEF) 0 .1 mg tablet Taking 3 times a week 12 tablet 3 11/10/2024 05/18/2025 Discontinued Start: 02-24-2020 End: 11-25-2021 take 1 tablet by mouth once Fludrocortisone 0.1 mg tab let Discontinued 0.1 mg PO .M/W/F September 20, 2020 11:49am September 20, 2020 7:00pm 0.1 mg PO every Thursday, Thursday and Thursday Start: 02-23-2020 End: 08-16-2020 Fludrocortisone 0.1 mg table t Discontinued 0.1 mg PO .COMPLEX July 02, 2020 11:29am August 16, 2020 7:01pm 0.1 mg PO on Mondays and ; Comment on above: Taking 3 times a wee k furosemide 20 mg oral tablet (20 sources) Loop Diuretic Start: 03-09-2012 End: 09-29-2024 take 1 tablet by mouth once daily Furosemide 20 MG tablet Discontinued 20 mg PO DAILY September 01, 2013 1:00am October 10, 2013 1:25pm 12 hr guaiFENesin 600 mg extended release oral tablet (3 sources) Start: 03-06-2025 End: 04-03-2025 take 1 tablet by mouth twice daily guaiFENesin (MUCINEX) 600 mg 12 hr tablet Take 1 tablet by mouth two times a day. 60 tablet 03/06/2025 04/03/2025 Discontinued (Course of therapy completed) 2 ml sodium hyaluronate 10 mg/ml prefilled syringe (11 sources) Start: 05-08-2025 End: 05-08-2025 sodium hyaluronate 20 mg injection (EUFLEXXA) Start: 05-08-2025 End: 05-08-2025 20 mg, Injection - FOR ORTHO USE ONLY, ONCE, 1 dose, Starting on Thu05/08/25 at 1137, Until Thu05/08/25 at 1137 Start: 05-01-2025 End: 05-01-2025 sodium hyaluronate 20 mg inj ection (EUFLEXXA) Start: 05-01-2025 End: 05-01-2025 20 mg, Injection - FOR ORTHO USE ONLY, ONCE, 1 dose, Starting on Thu05/01/25 at 1206, Until Thu05/01/25 at 1206 Start: 04-24-2025 End: 04-24-2025 sodium hyaluronate 20 mg inj ection (EUFLEXXA) Start: 04-24-2025 End: 04-24-2025 20 mg, Injection - FOR ORTHO USE ONLY, ONCE, 1 dose, Starting on Thu04/24/25 at 1416, Until Thu04/24/25 at 1416 Start: 08-17-2023 End: 08-17-2023 sodium hyaluronate 20 mg inj ection (EUFLEXXA) Start: 08-10-2023 End: 08-10-2023 sodium hyaluronate [...] 1 tablet by mouth monthly IBANDRONATE SODIUM [id number] Brian Cooley MD ibuprofen 200 mg oral tablet (6 sources) Nonsteroidal Anti-inflammatory Drug Start: 12-19-2010 End: 11-17-2012 ADVIL 200 MG TABS As needed, takes very occasionally IBUPROFEN [id number] Jacquelin Mclean Inflammatone ([employer]) decrease inflammation/pain (1 source) Start: 03-21-2021 End: 11-13-2021 Inflammatone ([facility]) decrease inflammation/pain take two capsules daily, between meals 0 03/21/2021 11/13/2021 Discontinued (Discontinued by Patient) ISOSORBIDE MONONITRATE TABS (6 sources) Nitrate Vasodilator Start: 12-19-2010 End: 03-09-2012 ISOSORBIDE MONONITRATE TABS 25mg - 1/2 tablet twice daily ISOSORBIDE MONONITRATE TABS [id number] Brian Cooley MD Start: 12-19-2010 ISOSORBIDE MON ONITRATE TABS 25mg - 1/2 tablet twice daily ISOSORBIDE MONONITRATE TABS [id number] Jacquelin Mclean lansoprazole 30 mg extended release oral tablet (6 sources) Proton Pump Inhibitor Start: 03-22-2013 End: 07-20-2014 take 1 tablet by mouth once daily LANSOPRAZOLE 30 MG TBDP One tablet by mouth daily LANSOPRAZOLE Brian Cooley MD 10 ml lidocaine hydrochloride 10 mg/ml injection (20 sources) Antiarrhythmic, Amide Local Anesthetic Start: 04-24-2025 End: 04-24-2025 lidocaine (PF) 10 mg/mL (1 %) 5 mL injection (XYLOCAINE) Start: 04-24-2025 End: 04-24-2025 5 mL, Injection - FOR ORTHO USE ONLY, ONCE, 1 dose, Starting on Thu04/24/25 at 1416, Until Thu04/24/25 at 1416 Start: 02-01-2025 End: 04-03-2025 apply 1 dose transdermal route every twelve hours lidocaine (LIDODERM) 5 % Indications: Acute midline back pain, unspecified back location Place patch to back for 12 hours. Remove old patch and wait 12 hours prior to placing new patch. 14 patch 02/01/2025 04/03/2025 Discontinued (Course of therapy completed) Start: 11-02-2024 apply 1 dose transde rmal route every twelve hours lidocaine (LIDODERM) 5 % Indications: Acute midline back pain, unspecified back location Place patch to back for 12 hours. Remove old patch and wait 12 hours prior to placing new patch. 14 Patch 11/02/2024 Active Start: 04-21-2022 End: 04-21-2022 lidocaine (PF) 10 mg/mL (1 % ) 1 mL injection (XYLOCAINE) magnesium oxide 400 mg oral tablet (20 sources) Start: 07-25-2014 End: 01-21-2024 take 1 tablet by mouth once daily Magnesium Oxide 400 mg (241.3 mg magnesium) tablet Discontinued 400 mg PO DAILY May 16, 2022 10:42am January 19, 2023 11:29am Start: 07-25-2014 take 1 tablet by louise th twice daily MAGNESIUM OXIDE 400 MG TABS One tablet by mouth twice daily MAGNESIUM OXIDE [id number] Brian Cooley MD Start: 12-19-2010 End: 11-17-2012 take 1 tablet by mouth once daily MAGNESIUM OXIDE 250 MG TABS One tablet by mouth daily MAGNESIUM OXIDE [id number] Jacquelin Marlow Mclean MASTECTOMY BRA (3 sources) Start: 05-11-2017 MASTECTOMY BRA Left breast cancer MASTECTOMY BRA Amaya Del Toro PA-C memantine hydrochloride 10 mg oral tablet (20 sources) G-fuwius-S-aspart ate Receptor Antagonist Start: 12-18-2020 End: 03-19-2021 [...] HOURS as needed for nausea and vomiting 18 3 April 25, 2023 12:00am January 23, 2024 4:12pm [...] extended release oral tablet (20 sources) beta-Adrenergic Betsy Start: 02-17-2022 End: 02-18-2022 take 2 tablets [...] hr Discontinued 12.5 mg PO WITH BREAKFAST November 05, 2021 3:44pm February 17, 2022 4:58pm Start: 11-12-2019 End: 02-18-2022 take 12.5 mg by mouth twice daily Metoprolol Succinate Discontinued 12.5 MG PO TWICE A DAY February 17, 2022 3:58pm February 18, 2022 2:55pm Start: 08-16-2019 End: 02-17-2022 take 1 tablet by mouth twice daily Metoprolol Succinate 25 mg tablet extended release 24 hr Discontinued 25 mg PO TWICE A DAY August 16, 2019 4:24pm November 12, 2019 [...] 24 hr Discontinued 25 mg PO DAILY July 30, 2019 12:06pm August 16, 2019 [...] 12.5 MG PO TWICE A DAY 90 June 18, 2018 11:50am June 25, 2018 1:15pm Start: 11-17-2012 take 1 tablet by louise th once daily TOPROL XL 25 MG [id number] One tablet by mouth daily METOPROLOL SUCCINATE [id number] Tanesha Britt PA-C Start: 12-29-2011 End: 10-11-2012 take 0.5 tablet by mouth twice daily METOPROLOL TARTRATE 25 MG TABS 1/2 tablet by mouth twice daily METOPROLOL TARTRATE [id number] Evangelina Armando RN Comment on above: Take [...] One tablet by mouth daily MULTIPLE VITAMINS-MINERALS [id number] Brian Cooley MD Start: 12-19-2010 take 1 tablet by louise th once daily OCUVITE PRESERVISION TABS One tablet by mouth daily MULTIPLE VITAMINS-MINERALS [id number] Jacquelin Mclean nitrofurantoin, macrocrystals 50 mg oral capsule (6 sources) Start: 12-19-2010 End: 09-08-2013 NITROFURANTOIN MACROCRYSTAL 50 MG CAPS 1 capsule daily as needed to prevent UTI NITROFURANTOIN MACROCRYSTAL [id number] Debra Leung RN [facility] [place] (Pure Encapsulation) -- fish oil (20 sources) Start: 03-21-2021 End: 08-25-2022 take 2 capsules by mouth once daily at mealtime [place] (Pure Encapsulation) -- fish oil Take 2 capsules by mouth daily with food. 0 03/21/2021 08/25/2022 Discontinued Start: 03-21-2021 take 2 capsules by m outh once daily at mealtime [place] (Pure Encapsulation) -- fish oil Take 2 [...] hours as needed for nausea PROMETHAZINE HCL [id number] Debra Leung RN raNITIdine 150 mg oral [...] after a meal as needed RANITIDINE HCL [id number] Brian Cooley MD sertraline 25 mg oral [...] Start: 09-28-2013 take 0.5 tablet by m out once daily ZOLOFT 50 MG TABS 1/2 tablet by mouth daily SERTRALINE HCL [id number] Brian Cooley MD Start: 09-28-2013 take 1 tablet by louise th once daily ZOLOFT 50 MG TABS One tablet by mouth daily SERTRALINE HCL [id number] Brian Cooley MD End: 09-29-2024 take 0.5 [...] 8:11am Start: 04-07-2023 take 1 tablet by [facility] once daily Vibegron (Gemtesa) 75 mg tablet Active 75 MG PO DAILY April 07, 2023 12:00am B COMPLEX VITAMINS (6 sources) Start: 12-19-2010 take 1 tablet by mouth once daily VITAMIN B COMPLEX TABS One tablet by mouth daily B COMPLEX VITAMINS [id number] Jacquelin Mclean Start: 12-19-2010 End: 11-17-2012 take 1 tablet by mouth once daily VITAMIN B COMPLEX TABS One tablet by mouth daily B COMPLEX VITAMINS [id number] Brian Cooley MD vitamin d 1000 unt oral tablet (6 sources) Start: 03-22-2013 take 1 tablet by mouth once daily VITAMIN D 1000 UNIT TABS One tablet by mouth daily CHOLECALCIFEROL [id number] Brian Cooley MD Start: 12-19-2010 take 1800 [IU[facility], then take 1 tablet by mouth VITAMIN D 1000 UNIT TABS 1800 units One tablet by mouth daily CHOLECALCIFEROL [id number] Jacquelin Mclean Vitamin D3 5000 Unit (Pure [...] TABS 7.5 mg every day WARFARIN SODIUM [id number] Debra Leung RN Start: 07-21-2013 COUMADIN 5 MG TABS take as directed, current dose is 7.5 mg x 6 days, 5 mg x 1 day WARFARIN SODIUM [id number] Brian Cooley MD zinc gluconate 50 mg oral tablet (6 sources) Start: 12-19-2010 End: 11-17-2012 take 1 tablet by mouth once daily ZINC GLUCONATE 50 MG TABS One tablet by mouth daily ZINC GLUCONATE [id number] Jacquelin Mclean zolpidem tartrate 5 mg oral tablet (6 sources) gamma-Aminobuty devika Acid-ergic Agonist Start: 11-17-2012 End: 09-08-2013 take 1 tablet by mouth at bedtime AMBIEN 5 MG TABS One tablet by mouth at bedtime. ZOLPIDEM TARTRATE [id number] Debra Leung RN Problems Active Problems Problem [...] Onset: 7 04-24-2017 Chronic Cancer of breast (16 sources) History of malignant neoplasm of breast; Translations: [Personal history of malignant neoplasm of breast] Onset: 5 04-09-2023 Episodic Comment on above: left mastectomy [...] known physiological condition] Onset: 1 11-27-2020 Chronic Diseases of white blood cells (1 source) Decreased white blood cell count, unspecified; Translations: [Decreased white blood cell count, unspecified] Onset: 5 Chronic Disorders of lipid metabolism (2 sources) Mixed hyperlipidemia; Translations: [Mixed hyperlipidemia] Onset: 5 02-10-2025 Chronic E Codes: Natural/environment (1 source) Bitten or stung by nonvenomous insect and other nonvenomous arthropods, initial encounter; Translations: [Tick bite of pelvic region, initial encounter] Onset: 5 Episodic Esophageal disorders (20 sources) Gastroesophageal reflux disease; Translations: [Gastro-esophageal reflux disease without esophagitis] Onset: 2 03-13-2012 Chronic Essential hypertension (2 sources) Essential hypertension; Translations: [Essential (primary) hypertension] Onset: 5 02-10-2025 Chronic Genitourinary symptoms and ill-defined conditions (5 sources) Urinary incontinence; Translations: [Unspecified urinary incontinence] Onset: 5 Chronic Genitourinary symptoms and ill-defined conditions (9 sources) Increased frequency of urination; Translations: [Frequency of micturition] Onset: 5 Episodic Heart valve disorders (20 sources) Mitral valve prolapse; Translations: [Nonrheumatic mitral (valve) prolapse] Onset: 1 12-19-2010 Chronic Immunizations and screening for infectious disease (20 sources) Contact with or exposure to other viral diseases; Translations: [Exposure to COVID-19 virus] Episodic Malaise and fatigue (20 sources) Chronic fatigue syndrome; Translations: [Chronic fatigue, unspecified] Onset: 1 09-09-2021 Chronic Malaise and fatigue (20 sources) Fatigue; Translations: [Other fatigue] Onset: 5 02-12-2015 Episodic Menopausal disorders (20 sources) Atrophic vaginitis; Translations: [...] vomiting (20 sources) Vomiting; Translations: [Vomiting, unspecified] Onset: 5 Episodic Noninfectious gastroenteritis (20 sources) Chronic diarrhea; Translations: [Noninfective gastroenteritis and colitis, unspecified] 06-25-2021 Episodic Nonmalignant breast conditions (20 sources) Mastodynia; Translations: [Pain of right breast] 10-01-2023 Episodic Nonspecific chest pain (20 sources) Chest pain, unspecified; Translations: [Chest pain] Onset: 1 Resolved: 6 12-19-2010 Episodic Nutritional deficiencies (20 sources) Deficiency of macronutrients; Translations: [Unspecified protein-calorie malnutrition] Onset: 3 Chronic Nutritional deficiencies (2 sources) Cobalamin deficiency; Translations: [Deficiency of other specified B group vitamins] 04-12-2024 Episodic Open wounds of extremities (2 sources) Laceration of right index finger; Translations: [Laceration without foreign body of right index finger without damage to nail, initial encounter] Episodic Osteoarthritis (20 sources) Osteoarthritis; Translations: [Osteoarthrosis, unspecified whether generalized or localized, lower leg] Onset: 5 03-13-2012 Chronic Osteoporosis (20 sources) Osteoporosis; Translations: [Age-related osteoporosis without current pathological fracture] Onset: 9 Resolved: 2 04-12-2024 Chronic Other acquired deformities (1 source) Acquired valgus deformity of right knee; Translations: [Valgus deformity, not elsewhere classified, right knee] Episodic Other aftercare (3 sources) Patient encounter status; Translations: [Other usp (current) drug therapy] Episodic Other aftercare (1 source) Removal of sutures done; Translations: [Encounter for removal of sutures] Episodic Other aftercare (1 source) Long-term current use of anticoagulant; Translations: [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) use of anticoagulants] 11-07-2024 Episodic Other aftercare (1 source) Encounter for follow-up examination after completed treatment for conditions other than malignant neoplasm; Translations: [Hospital discharge follow-up] Onset: Episodic Other and ill-defined cerebrovascular disease (20 [...] [Disorder of bone and cartilage, unspecified] Onset: Episodic Other bone disease and musculoskeletal deformities [...] ; Translations: [Repeated falls] 11-10-2024 Episodic Other endocrine disorders (20 sources) Syndrome of inappropriate vasopressin secretion; 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] Onset: 8 03-09-2018 Chronic Other endocrine disorders (20 sources) Syndrome of inappropriate secretion of antidiuretic hormone; Translations: [Other disorders of neurohypophysis] Onset: 8 Chronic Other endocrine disorders (18 sources) Hypoadrenalism; Translations: [Unspecified adrenocortical insufficiency] Onset: [...] fracture with routine healing] 11-07-2024 Episodic Other gastrointestinal disorders (20 sources) Irritable bowel syndrome; Translations: [Irritable bowel syndrome without diarrhea] 03-13-2012 Chronic Other gastrointestinal disorders (20 sources) Diarrhea; Translations: [Diarrhea, unspecified] 04-12-2021 Episodic Other gastrointestinal disorders (20 sources) Constipation; Translations: [Constipation, unspecified] 03-13-2012 Episodic Other gastrointestinal disorders (1 source) Constipation, unspecified; Translations: [Constipation, unspecified constipation type] Onset: 5 Episodic Other hereditary and degenerative nervous system [...] of head, initial encounter] 11-07-2024 Episodic Other lower respiratory disease (1 source) Cough; Translations: [Acute cough] 03-06-2025 Episodic Other lower respiratory disease (1 source) Shortness of breath; Translations: [Shortness of breath] Onset: Episodic Other nervous system disorders (16 sources) [...] Translations: [Abnormality of gait] 09-22-2023 Episodic Other non-traumatic joint disorders (3 sources) Pain in right shoulder; Translations: [Pain in joint, shoulder region] Onset: 04-05-2025 Episodic Other nutritional; endocrine; and metabolic disorders [...] unspecified; Translations: [Sleep apnea, unspecified type] Onset: 4 Chronic Residual codes; unclassified (2 sources) [...] (3 sources) Localized edema; Translations: [Edema] Episodic Residual codes; unclassified (1 source) Estrogen receptor positive status [ER+]; Translations: [Estrogen receptor positive status [ER+]] Onset: 5 Episodic Superficial injury; contusion (2 sources) Tick bite; Translations: [Insect bite (nonvenomous) of lower back and pelvis, initial encounter] Onset: 5 04-03-2025 Episodic Syncope (20 sources) Syncope; Translations: [Syncope and collapse] Onset: 9 11-12-2019 Episodic Transient cerebral ischemia (2 sources) Transient cerebral ischemia; Translations: [Transient cerebral ischemic attack, unspecified] 11-02-2023 Chronic Unclassified (20 sources) Electrocardiogram abnormal; Translations: [Thyroid [...] Establish Care; Translations: [Establish Care] Onset: 5 Unclassified (1 source) Right shoulder pain, unspecified chronicity 04-05-2025 Unclassified (1 source) Acute cough; Translations: [Acute cough] Onset: 5 Urinary tract infections (6 sources) [...] sources) Lightheadedness; Translations: [Dizziness and giddiness] Onset: 03-08-2013 Episodic E Codes: Fall (4 sources) Fall; Translations: [Unspecified fall, subsequent encounter] Onset: 11-02-2024 11-02-2024 Episodic E Codes: Fall (2 sources) Fall 11-02-2024 Fluid and electrolyte disorders (20 sources) Hyponatremia with decreased serum osmolality; Translations: [Hypo-osmolality and hyponatremia] Onset: 02-11-2011 03-13-2012 Episodic Headache; including migraine (20 sources) Ophthalmic migraine; 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 with aura, not intractable, without status migrainosus] Resolved: 05-04-2007 11-02-2023 Chronic Other aftercare (3 sources) Surgical follow-up; Translations: [Encounter for other specified surgical aftercare] Onset: 04-24-2017 04-24-2017 Episodic Other aftercare (20 sources) Post-discharge follow-up; Translations: [Encounter for follow-up examination after completed treatment for conditions other than malignant neoplasm] Onset: 11-18-2019 Resolved: 11-12-2022 11-18-2019 Episodic Other bone disease and musculoskeletal deformities (20 sources) Osteopenia; Translations: [Other specified disorders of bone density and structure, unspecified site] Onset: 12-20-2015 09-09-2021 Episodic Other bone disease and musculoskeletal deformities (20 sources) Disorder of skeletal system; Translations: [Disorder of bone, unspecified] Resolved: 07-04-2009 03-13-2012 Episodic Other connective tissue disease (1 source) Repeated falls; Translations: [Repeated falls] Onset: 12-29-2024 Episodic Other fractures (20 sources) Closed fracture lumbar vertebra; Translations: [Unspecified fracture of unspecified lumbar vertebra, initial encounter for closed fracture] Onset: 10-18-2012 09-09-2021 Episodic Other fractures (1 source) Collapsed vertebra, not elsewhere classified, thoracic region, initial encounter for fracture; Translations: [Collapsed vertebra, not elsewhere classified, thoracic region, initial encounter for fracture] Onset: 02-10-2025 Episodic Other injuries and conditions due to external causes (1 source) Encounter for examination and observation following other accident; Translations: [Encounter for examination and observation following other accident] Onset: 11-11-2024 Episodic Other lower respiratory disease (3 sources) [...] Translations: [Insomnia, unspecified] Onset: 02-11-2011 03-13-2012 Episodic Residual codes; unclassified (20 sources) Postmenopausal state; Translations: [Asymptomatic menopausal state] Resolved: 10-28-2012 10-28-2012 Episodic Residual codes; unclassified (1 source) Insomnia, unspecified; Translations: [Insomnia, unspecified type] Onset: 03-13-2012 Episodic Spondylosis; intervertebral disc disorders; other back problems (20 sources) Lumbago with sciatica; Translations: [Lumbago with sciatica, right side] Onset: 07-24-2015 07-24-2015 Episodic Unclassified (6 sources) FH: Hypertension; Translations: [Estrogen receptor positive status [ER+]] Onset: 04-24-2017 07-20-2014 Episodic Results Test Name Value Interpretation Reference Range Facility MR/BMS.BUSon 07-03-2025 MR/BMS.BUS Normal [facility] MR/BMS.BPon 06-27-2025 MR/BMS.BP Normal [facility] MR/BMS.BUSon 06-26-2025 MR/BMS.BUS Normal [facility] MR/BMS.BUSon 06-16-2025 MR/BMS.BUS Normal [facility] MR/BMS.BPon 06-12-2025 MR/BMS.BP Normal [facility] CBC W/Diff, Automatedon 05-16 Absolute Lymph 1.45 X10 3/uL Normal 0.83-4.51 [facility] Comment on above: Performed By: #### L 100.0100, L500.4050 ####[facility] [address] [place], [address] Absolute Neut 1.7 X10 3/uL Low 2.0-7.7 [facility] Comment on above: Performed By: #### L 100.0100, L500.4050 ####[facility] [address] [place], [address] Basophils/100 WBC (Bld) 1.2 % High 0-1 [facility] Comment on above: Performed By: #### L 100.0100, L500.4050 ####[facility] [address] [place], [address] Eosinophils/100 WBC (Bld) 5.2 % High 0-5 [facility] Comment on above: Performed By: #### L 100.0100, L500.4050 ####[facility] [address] [place], [address] Erythrocyte distribution width (RBC) [Ratio] 13.5 % Normal 11.6-14.6 [facility] Comment on above: Performed By: #### L 100.0100, L500.4050 ####[facility] [address] [place], [address] Hematocrit (Bld) [Volume fraction] 33.2 % Low 37-47 [facility] Comment on above: Performed By: #### L 100.0100, L500.4050 ####[facility] [address] [place], [address] Hemoglobin (Bld) [Mass/Vol] 11.8 g/dL Low 12.0-15.0 [facility] Comment on above: Performed By: #### L 100.0100, L500.4050 ####[facility] [address] [place], [address] IG% 0.000 Normal 0.0-0.9 [facility] Comment on above: Result Comment: IG% - Immature Granulocytes (promyelocytes, myelocytes andmetamyelocytes) > 1% indicates that a LEFT SHIFT is Present. Performed By: #### L 100.0100, L500.4050 ####[facility] [address] [place], [address] Lymphocytes/100 WBC (Bld) 35.9 % Normal 19-41 [facility] Comment on above: Performed By: #### L 100.0100, L500.4050 ####[facility] [address] [place], [address] MCH (RBC) [Entitic mass] 33.8 pg High 27.0-32.0 [facility] Comment on above: Performed By: #### L 100.0100, L500.4050 ####[facility] [address] [place], [address] MCHC (RBC) [Mass/Vol] 35.5 g/dL Normal 32-36 [facility] Comment on above: Performed By: #### L 100.0100, L500.4050 ####[facility] [address] [place], [address] MCV (RBC) [Entitic vol] 95.1 fL Normal 81-99 [facility] Comment on above: Performed By: #### L 100.0100, L500.4050 ####[facility] [address] [place], [address] Monocytes/100 WBC (Bld) 14.9 % High 0-10 [facility] Comment on above: Performed By: #### L 100.0100, L500.4050 ####[facility] [address] [place], [address] Neutrophils/100 WBC (Bld) 42.8 % Low 47-70 [facility] Comment on above: Performed By: #### L 100.0100, L500.4050 ####[facility] [address] [place], [address] Nucleated RBC (Bld) [#/Vol] 0 10*3/uL Normal 0-5 [facility] Comment on above: Performed By: #### L 100.0100, L500.4050 ####[facility] [address] [place], [address] Platelet mean volume (Bld) [Entitic vol] 9.4 fL Normal 6.2-12.0 [facility] Comment on above: Performed By: #### L 100.0100, L500.4050 ####[facility] [address] [place], [address] Platelets (Bld) [#/Vol] 233 10*3/uL Normal 150-450 [facility] Comment on above: Performed By: #### L 100.0100, L500.4050 ####[facility] [address] [place], [address] RBC (Bld) [#/Vol] 3.49 10*6/uL Low 4.2-5.4 [facility] Comment on above: Performed By: #### L 100.0100, L500.4050 ####[facility] [address] [place], [address] RDW SD 46.6 fl High 35.1-43.9 [facility] Comment on above: Performed By: #### L 100.0100, L500.4050 ####[facility] [address] [place], [address] WBC (Bld) [#/Vol] 4.0 10*3/uL Low 4.4-11.0 [facility] Comment on above: Performed By: #### L 100.0100, L500.4050 ####[facility] [address] [place], [address] Comprehensive Metabolic Prof [facility] 06-08-2025 Albumin [Mass/Vol] 3.6 g/dL Normal 3.4-4.8 [facility] Comment on above: Performed By: #### L 100.0100, L500.4050 ####[facility] [address] [place], [address] Albumin/Globulin [Mass ratio] 1.4 {ratio} Normal 0.9-2.4 [facility] Comment on above: Performed By: #### L 100.0100, L500.4050 ####[facility] [address] [place], [address] ALK PHOS 62 U/L Normal 35-104 [facility] Comment on above: Performed By: #### L 100.0100, L500.4050 ####[facility] [address] [place], [address] ALT [Catalytic activity/Vol] 13 U/L Normal <=34 [facility] Comment on above: Performed By: #### L 100.0100, L500.4050 ####[facility] [address] [place], [address] AST [Catalytic activity/Vol] 23 U/L Normal <=31 [facility] Comment on above: Performed By: #### L 100.0100, L500.4050 ####[facility] [address] [place], [address] Bilirubin [Mass/Vol] 0.64 mg/dL Normal 0.00-1.30 [facility] Comment on above: Performed By: #### L 100.0100, L500.4050 ####[facility] [address] [place], [address] BUN/CRE 19.4 RATIO Normal 10-20 [facility] Comment on above: Performed By: #### L 100.0100, L500.4050 ####[facility] [address] [place], [address] Calcium [Mass/Vol] 8.6 mg/dL Normal 7.6-11.0 [facility] Comment on above: Performed By: #### L 100.0100, L500.4050 ####[facility] [address] [place], [address] Chloride [Moles/Vol] 97 mmol/L Low 98-108 [facility] Comment on above: Performed By: #### L 100.0100, L500.4050 ####[facility] [address] [place], [address] CO2 [Moles/Vol] 16.7 mmol/L Low 21.0-32.0 [facility] Comment on above: Performed By: #### L 100.0100, L500.4050 ####[facility] [address] [place], [address] Creatinine [Mass/Vol] 0.86 mg/dL Normal 0.70-1.20 [facility] Comment on above: Performed By: #### L 100.0100, L500.4050 ####[facility] [address] [place], [address] ECRCL 42.59 ml/min Low 50-250 [facility] Comment on above: Performed By: #### L 100.0100, L500.4050 ####[facility] [address] [place], [address] GAP 16 High 5-15 [facility] Comment on above: Performed By: #### L 100.0100, L500.4050 ####[facility] [address] [place], [address] GFR/1.73 sq M.predicted among non-blacks MDRD (S/P/Bld) [Vol rate/Area] 67 mL/min/{1.73_m2} Normal >60 [facility] Comment on above: Result Comment: mL/m in/1.73m2 CKD-EPI Creatinine Equation (2020) Performed By: #### L 100.0100, L500.4050 ####[facility] [address] [place], [address] Globulin (S) [Mass/Vol] 2.6 g/dL Normal 2.2-4.2 [facility] Comment on above: Performed By: #### L 100.0100, L500.4050 ####[facility] [address] [place], [address] Glucose [Mass/Vol] 86 mg/dL Normal 70-99 [facility] Comment on above: Performed By: #### L 100.0100, L500.4050 ####[facility] [address] [place], [address] Potassium [Moles/Vol] 4.2 mmol/L Normal 3.3-5.1 [facility] Comment on above: Performed By: #### L 100.0100, L500.4050 ####[facility] [address] [place], [address] Sodium [Moles/Vol] 129 mmol/L Low 133-145 [facility] Comment on above: Performed By: #### L 100.0100, L500.4050 ####[facility] [address] [place], [address] T PROT 6.2 g/dL Normal 5.9-8.4 [facility] Comment on above: Performed By: #### L 100.0100, L500.4050 ####[facility] [address] [place], [address] Urea nitrogen [Mass/Vol] 17 mg/dL Normal 4-19 [facility] Comment on above: Performed By: #### L 100.0100, L500.4050 ####[facility] [address] [place], [address] Oncology Visit Reporton 05-16 Oncology Visit Report Normal [facility] 12 Lead EKGon 06-05-2025 12 Lead EKG Normal [facility] Basic Metabolic Profile (BMP )on 06-05-2025 BUN/CRE 22.0 RATIO High 10-20 [facility] Comment on above: Performed By: #### L 500.2500, L100.0100 ####[facility] [address] [place], [address] Calcium [Mass/Vol] 8.6 mg/dL Normal 7.6-11.0 [facility] Comment on above: Performed By: #### L 500.2500, L100.0100 ####[facility] [address] [place], [address] Chloride [Moles/Vol] 94 mmol/L Low 98-108 [facility] Comment on above: Performed By: #### L 500.2500, L100.0100 ####[facility] [address] [place], [place], [address] CO2 [Moles/Vol] 21.3 mmol/L Normal 21.0-32.0 [facility] Comment on above: Performed By: #### L 500.2500, L100.0100 ####[facility] [address] [place], [address] Creatinine [Mass/Vol] 0.94 mg/dL Normal 0.70-1.20 [facility] Comment on above: Performed By: #### L 500.2500, L100.0100 ####[facility] [address] [place], [address] ECRCL 40.59 ml/min Low 50-250 [facility] Comment on above: Performed By: #### L 500.2500, L100.0100 ####[facility] [address] [place], [address] GAP 11 Normal 5-15 [facility] Comment on above: Performed By: #### L 500.2500, L100.0100 ####[facility] [address] [place], [address] GFR/1.73 sq M.predicted among non-blacks MDRD (S/P/Bld) [Vol rate/Area] 60 mL/min/{1.73_m2} Normal >60 [facility] Comment on above: Result Comment: mL/m in/1.73m2 CKD-EPI Creatinine Equation (2020) Performed By: #### L 500.2500, L100.0100 ####[facility] [address] [place], [address] Glucose [Mass/Vol] 151 mg/dL High 70-99 [facility] Comment on above: Performed By: #### L 500.2500, L100.0100 ####[facility] [address] [place], [address] Potassium [Moles/Vol] 4.2 mmol/L Normal 3.3-5.1 [facility] Comment on above: Performed By: #### L 500.2500, L100.0100 ####[facility] [address] [place], [address] Sodium [Moles/Vol] 126 mmol/L Low 133-145 [facility] Comment on above: Performed By: #### L 500.2500, L100.0100 ####[facility] [address] [place], [address] Urea nitrogen [Mass/Vol] 21 mg/dL High 4-19 [facility] Comment on above: Performed By: #### L 500.2500, L100.0100 ####[facility] [address] [place], [address] CBC W/Diff, Automatedon 09-2 2-2024 Absolute Lymph 1.18 X10 3/uL Normal 0.83-4.51 [facility] Comment on above: Performed By: #### L 500.2500, L100.0100 ####[facility] [address] [place], [address] Absolute Neut 2.5 X10 3/uL Normal 2.0-7.7 [facility] Comment on above: Performed By: #### L 500.2500, L100.0100 ####[facility] [address] [place], [address] Basophils/100 WBC (Bld) 0.7 % Normal 0-1 [facility] Comment on above: Performed By: #### L 500.2500, L100.0100 ####[facility] [address] [place], [address] Eosinophils/100 WBC (Bld) 2.5 % Normal 0-5 [facility] Comment on above: Performed By: #### L 500.2500, L100.0100 ####[facility] [address] [place], [address] Erythrocyte distribution width (RBC) [Ratio] 13.4 % Normal 11.6-14.6 [facility] Comment on above: Performed By: #### L 500.2500, L100.0100 ####[facility] [address] [place], [address] Hematocrit (Bld) [Volume fraction] 32.8 % Low 37-47 [facility] Comment on above: Performed By: #### L 500.2500, L100.0100 ####[facility] [address] [place], [address] Hemoglobin (Bld) [Mass/Vol] 11.5 g/dL Low 12.0-15.0 [facility] Comment on above: Performed By: #### L 500.2500, L100.0100 ####[facility] [address] [place], [address] IG% 0.200 Normal 0.0-0.9 [facility] Comment on above: Result Comment: IG% - Immature Granulocytes (promyelocytes, myelocytes andmetamyelocytes) > 1% indicates that a LEFT SHIFT is Present. Performed By: #### L 500.2500, L100.0100 ####[facility] [address] [place], [address] Lymphocytes/100 WBC (Bld) 27.1 % Normal 19-41 [facility] Comment on above: Performed By: #### L 500.2500, L100.0100 ####[facility] [address] [place], [address] MCH (RBC) [Entitic mass] 32.8 pg High 27.0-32.0 [facility] Comment on above: Performed By: #### L 500.2500, L100.0100 ####[facility] [address] [place], [address] MCHC (RBC) [Mass/Vol] 35.1 g/dL Normal 32-36 [facility] Comment on above: Performed By: #### L 500.2500, L100.0100 ####[facility] [address] [place], [address] MCV (RBC) [Entitic vol] 93.4 fL Normal 81-99 [facility] Comment on above: Performed By: #### L 500.2500, L100.0100 ####[facility] [address] [place], [address] Monocytes/100 WBC (Bld) 13.1 % High 0-10 [facility] Comment on above: Performed By: #### L 500.2500, L100.0100 ####[facility] [address] [place], [address] Neutrophils/100 WBC (Bld) 56.4 % Normal 47-70 [facility] Comment on above: Performed By: #### L 500.2500, L100.0100 ####[facility] [address] [place], [address] Nucleated RBC (Bld) [#/Vol] 0 10*3/uL Normal 0-5 [facility] Comment on above: Performed By: #### L 500.2500, L100.0100 ####[facility] [address] [place], [address] Platelet mean volume (Bld) [Entitic vol] 9.7 fL Normal 6.2-12.0 [facility] Comment on above: Performed By: #### L 500.2500, L100.0100 ####[facility] [address] [place], [address] Platelets (Bld) [#/Vol] 237 10*3/uL Normal 150-450 [facility] Comment on above: Performed By: #### L 500.2500, L100.0100 ####[facility] [address] [place], [address] RBC (Bld) [#/Vol] 3.51 10*6/uL Low 4.2-5.4 [facility] Comment on above: Performed By: #### L 500.2500, L100.0100 ####[facility] [address] [place], [address] RDW SD 46.2 fl High 35.1-43.9 [facility] Comment on above: Performed By: #### L 500.2500, L100.0100 ####[facility] [address] [place], [address] WBC (Bld) [#/Vol] 4.4 10*3/uL Normal 4.4-11.0 [facility] Comment on above: Performed By: #### L 500.2500, L100.0100 ####[facility] [address] [place], [address] Chest 1 View (Portable)on Chest 1 View (Portable) Normal [facility] Emergency Department Summary on 06-05-2025 Emergency Department Summary Normal [facility] L501.4021on 06-05-2025 Trop T High Sen 14 ng/L Normal <=14 [facility] Comment on above: Performed By: #### L 501.4021 ####[facility] [address] [place], [address] M100.678on 06-05-2025 M100.678 Pending SARS-CoV-2 (COVID 19) Negative INFLUENZA A Negative INFLUENZA B Negative RSV PCR Negative Normal [facility] Comment on above: Performed By: #### M 100.678 ####[facility] [address] [place], [address] Pro- Brain NATRIURETIC PEPTI Monique 06-05-2025 Natriuretic peptide B (Bld) [Mass/Vol] 883 pg/mL Normal <=1800 [facility] Comment on above: Result Comment: Hear t Failure Unlikely: < 300 pg/mLHeart Failure Likely< 50 Years: > 450 pg/mL50-75 Years: > 900 pg/mL>75 Years: > 1800 pg/mL Performed By: #### L 503.7505 ####[facility] [address] [place], [place], [address] Troponin T HS 2 HRon 025 Trop T High Sen 13 ng/L Normal <=14 [facility] Comment on above: Performed By: #### L 499.0042 ####[facility] [address] [place], [place], [address] Troponin T HS 4 HRon 025 Trop T High Sen Normal <=14 [facility] Comment on above: Result Comment: Don perdomo via OM: Ordered Performed By: #### L 499.0043 ####[facility] [address] [place], [place], [address] MR/BMS.BPon 06-01-2025 MR/BMS.BP [facility] SCREEN MAMM (CAD) W/NILTON UNI Jw 06-01-2025 SCREEN MAMM (CAD) W/NILTON UNI R Normal [facility] MR/BMS.BUSon 05-30-2025 MR/BMS.BUS [facility] PT D/C Summary (1)on PT D/C Summary (1) [facility] CNOVon 05-18-2025 CNOV Office Visit (INTMWS) ROSANA MAKI ([id number]) 1940 F NFR Date Time Provider Department 05/18/25 10:00 AM AL NICHOLE During your visit today, we recorded the following information about you: Pulse Respiration Blood pressure Weight 62/minute 16/minute 136/86 56.7 kg Al Nichole APRN.ALMOND BLANCHER 05/18/2025 10:46 AM Signed Rosana Maki is a 85 year old female here for a Medicare wellness visit. 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 Urologist: Dr. Prince Orthopedics: Maggi Aldana Nephrology: Dr. Enciso Cardiology: Dr. Cooley Neurologist: Dr. Blanca Optometry: Dr. Khan and Dr. Jernigan Medical/Family history review Reviewed and updated problem list, medical/surgical/fam tigre/social history, medications, and allergies. Opioid use review Opioid Medications (last 90 days) No data to display Anxiety/Depression screening PHQ-9 Score: 9 (Mild Depression) JEFFERY-2 Score: 2 (Lower risk for anxiety) Recommendation: counseling seeing a therapist Cognitive screening Mini Cog Score: 5 Cognitive screening reviewed and No further action needed (score 3-5). Functional Observation Was the patient's Timed Up AND Go test unsteady or >= 12 seconds? No Advance Care Planning Surrogate decision maker documented and/or advance directives scanned in chart Measurements BP 136/86 Pulse 62 Resp 16 Wt 56.7 kg (125 lb) SpO2 99% BMI 19.58 kg/m? Vision Screening: Follows with optometry/ophthalmol ogy Assessment/Plan Medicare annual wellness visit, subsequent (Z00.00) - Counseled on healthy diet and regular exercise - Fall avoidance information provided - Personalized prevention plan provided - Counseled patient on alcohol intake and associated health risks Al Nichole APRN.CNP 05/18/2025 10:28 AM Signed Screening schedule The following prevention plan is recommended: Medicare Annual Wellness Visit Never done Advance Directive Discussion due on 09/14/2024 WHAT YOU CAN DO TO PREVENT FALLS Many falls can be prevented. By making some changes, you can lower your chances of falling. Four things YOU can do to prevent falls for you* and your caregiver 1. Begin a regular exercise program Exercise is one of the most important ways to lower your chances of falling. It makes you stronger and helps you feel better. Exercises that improve balance and coordination (like Torin Chi) are the most helpful. Lack of exercise leads to weakness and increases your chances of falling. Ask your doctor or health care provider about the best type of exercise program for you. 2. Have your health care provider review your medicines Have your doctor or pharmacist review all the medicines you take, even mdjn-elk-fwtdjsq medicines. As you get older, the way medicines work in your body can change. Some medicines, or combinations of medicines, can make you sleepy or dizzy and can cause you to fall. 3. Have your vision checked Have your eyes checked by an eye doctor at least once a year. You may be wearing the wrong glasses or have a condition like glaucoma or cataracts that limits your vision. Poor vision can increase your chances of falling. 4. Make your home safer About half of all falls happen at home. To make your home safer: Remove things you can trip over (like papers, books, clothes, and shoes) from stairs and places where you walk. Remove small throw rugs or use double-sided tape to keep the rugs from slipping. Keep items you use often in cabinets you can reach easily without using a step stool. Have grab bars put in next to your toilet and in the tub or shower. Use non-slip mats in the bathtub and on shower floors. Improve the lighting in your home. As you get older, you need brighter lights to see well. Hang light-weight curtains or shades to reduce glare. Have handrails and lights put in on all staircases. Wear shoes both inside and outside the house. Avoid going barefoot or wearing slippers. For more information, contact: [facility] Disease Control and Prevention www.cdc.gov/injury * This information may not apply if you have certain medical condition (more content not included)... Normal [facility] MR/BMS.BPon 05-16-2025 MR/BMS.BP Normal [facility] CNOVon 05-08-2025 CNOV Office Visit (ORTHWS) ROSANA MAKI ([id number]) 1940 F NFR Date Time Provider Department 05/08/25 11:30 AM MAGGI ALDANA During your visit today, we recorded the following information about you: Mari Conti MA 05/08/2025 11:38 AM Signed Patient presents with: Right Knee - Injections: Euflexxa injection # 3 right knee AMB ROOMING INTAKE FLOWSHEET DATA Pain Pain Level: 3 Pain Location: Knee-Right Description: Tenderness, Stabbing, Aching Duration Amount of Time: (Ongoing) Frequency: Intermittent Intervention/Comfort measure: Medication Patient here for Euflexxa injection # 3 right knee. Taking Tylenol for the pain. LOT # [id number] EXP 09/03/2025 MITCHELL Frederick Sondra, PA-C 05/08/2025 11:38 AM Signed Large Joint Arthro/Inj: R knee joint 05/08/2025 11:37 AM The procedure site was prepped in the usual sterile fashion. Site: R knee joint Medications: 20 mg sodium hyaluronate 10 mg/mL(mw 2.4 -3.6 million) Outcome: Tolerated well, no immediate complications Post-injection instructions were reviewed with the patient and the patient voiced understanding of these instructions. Informed Consent Consent Obtained: Verbal Wallace Protocol A moment to CARE was completed. SIGN IN Sign in communication not applicable due to emergent procedure. Personnel directly involved with the procedure wore the appropriate PPE. Special Equipment: N/A Patient/Surrogate Stated/Verified: Patient name, Date of , Relevant allergies and Intended procedure TIME OUT Relevant labs, photos, and/or imaging studies have been reviewed. Consent documented and matches the intended procedure. Correct side/site marked and visible. Medications required for procedure verified. No fire risk assessment and interventions applicable. No implant(s) inserted. SIGN OUT No specimen collected. All instruments, equipment, possible retained foreign bodies accounted for. No post-procedure POC communication to the patient's multidisciplinary team (including the bedside nurse for hospitalized patients) applicable. Referring Provider: MAGGI ALDANA [[id number]] Allergies As of Date: 05/08/2025 Noted Allergy Reaction ADHESIVE TAPE (ROSINS) 11/11/2013 [...] allergy is accurate or not. Date Reviewed: 05/08/2025 Reviewed by: Mari Conti MA - Fully Assessed Reason for Visit: Injections [199] Cmt: Euflexxa injection # 3 right knee Primary Visit Diagnosis:Primary osteoarthritis of right knee [M17.11] Order(s):Large Joint Arthro/Inj: R knee joint [AYN097] Order #: [id number] [] sodium hyaluronate 20 mg injection (EUFLEXXA)Disp: Rfl: Prescriptions as of 05/08/2025 - esomeprazole (NEXIUM) 40 mg capsule Take 1 capsule by mouth daily before breakfast. 1/2 hr before meal. - famotidine (PEPCID) 20 mg tablet Take 1 tablet by mouth at bedtime as needed. - fludrocortisone (FLORINEF) 0.1 mg tablet Taking 3 times a week - midodrine (PROAMATINE) 2.5 mg tablet Take 2.5 mg by mouth two times a day. - tiZANidine (ZANAFLEX) 2 mg tablet Take 1 tablet by mouth every 6 hours as needed. - zoledronic acid (ZOMETA INTRAVENOUS) Inject intravenously. Every 6 months - BENEFIBER, GUAR GUM, ORAL Take 2 teaspoonsful by mouth two times a day as needed. - meclizine (ANTIVERT) 25 mg tab Take 1 tablet by mouth every 6 hours as needed (dizziness). - Magnesium Glycinate 120mg 3 at night Stress, blood sugar, thyroid/hormones/adr enals/sleep/energy/t oxins/muscles/consti pation/asthma Work up to 3 capsules with meals [...] 1 tablet by mouth once daily. - ergocalciferol(VITAM IN D 400 UNIT CAP) Take 1,000 Units by mouth once daily. Problem List As Of Date 05/08/2025 Noted Resolved Irritable Bowel Syndrome [K58.9] OSTEOPENIA [M89.9, M94.9] 07/04/2009 Esophageal reflux [K21.9] Other forms of migraine [346.8] 05/04/2007 Unspecified constipation [K59.00] Asymptomatic Postmenopausal Status (Age-Related* 10/28/2012 Osteoarth NOS-L/Leg [KKJ6738] Palpitations [R00 (more content not included)... Normal [facility] Large Joint Arthro/Inj: R kn ee jointon 05-08-2025 Maggi Aldana PA-C 05/08/2025 11:38 AM Large Joint Arthro/Inj: R knee joint 05/08/2025 11:37 AM The procedure site was prepped in the usual sterile fashion. Site: R knee joint Medications: 20 mg sodium hyaluronate 10 mg/mL(mw 2.4 -3.6 million) Outcome: Tolerated well, no immediate complications Post-injection instructions were reviewed with the patient and the patient voiced understanding of these instructions. Informed Consent Consent Obtained: Verbal Wallace Protocol A moment to CARE was completed. SIGN IN Sign in communication not applicable due to emergent procedure. Personnel directly involved with the procedure wore the appropriate PPE. Special Equipment: N/A Patient/Surrogate Stated/Verified: Patient name, Date of , Relevant allergies and Intended procedure TIME OUT Relevant labs, photos, and/or imaging studies have been reviewed. Consent documented and matches the intended procedure. Correct side/site marked and visible. Medications required for procedure verified. No fire risk assessment and interventions applicable. No implant(s) inserted. SIGN OUT No specimen collected. All instruments, equipment, possible retained foreign bodies accounted for. No post-procedure POC communication to the patient's multidisciplinary team (including the bedside nurse for hospitalized patients) applicable. [facility] CNOVon 05-01-2025 CNOV Office Visit (ORTHWS) ROSANA MAKI ([id number]) 1940 F NFR Date Time Provider Department 05/01/25 11:30 AM MAGGI ALDANA During your visit today, we recorded the following information about you: Dipika Merchant MA 05/01/2025 12:06 PM Signed AMB ROOMING INTAKE FLOWSHEET DATA Pain Pain Level: 4 Pain Location: Knee-Right Description: Aching, Other: See comment (jabbing) Duration Amount of Time: (ongoing) Frequency: Intermittent Intervention/Comfort measure: Other: See comment (none) Euflexxa injection # 2 into right knee LOT # [id number] EXP 09/03/2025 MITCHELL Bustos Sondra, PA-C 05/01/2025 12:06 PM Signed Large Joint Arthro/Inj: R knee joint 05/01/2025 12:06 PM The procedure site was prepped in the usual sterile fashion. Site: R knee joint Medications: 20 mg sodium hyaluronate 10 mg/mL(mw 2.4 -3.6 million) Outcome: Tolerated well, no immediate complications Post-injection instructions were reviewed with the patient and the patient voiced understanding of these instructions. Informed Consent Consent Obtained: Verbal Wallace Protocol A moment to CARE was completed. SIGN IN Sign in communication not applicable due to emergent procedure. Personnel directly involved with the procedure wore the appropriate PPE. Special Equipment: N/A Patient/Surrogate Stated/Verified: Patient name, Date of , Relevant allergies and Intended procedure TIME OUT Relevant labs, photos, and/or imaging studies have been reviewed. Consent documented and matches the intended procedure. Correct side/site marked and visible. Medications required for procedure verified. No fire risk assessment and interventions applicable. No implant(s) inserted. SIGN OUT No specimen collected. All instruments, equipment, possible retained foreign bodies accounted for. No post-procedure POC communication to the patient's multidisciplinary team (including the bedside nurse for hospitalized patients) applicable. Referring Provider: MAGGI ALDANA [[id number]] Allergies As of Date: 05/01/2025 Noted Allergy Reaction ADHESIVE TAPE (ROSINS) 11/11/2013 [...] allergy is accurate or not. Date Reviewed: 05/01/2025 Reviewed by: Dipika Merchant MA - Fully Assessed Reason for Visit: Injections [199] Primary Visit Diagnosis:Primary osteoarthritis of right knee [M17.11] Order(s):Large Joint Arthro/Inj: R knee joint [[id number]] Order #: [id number] [] sodium hyaluronate 20 mg injection (EUFLEXXA)Disp: Rfl: Prescriptions as of 05/01/2025 - esomeprazole (NEXIUM) 40 mg capsule Take 1 capsule by mouth daily before breakfast. 1/2 hr before meal. - famotidine (PEPCID) 20 mg tablet Take 1 tablet by mouth at bedtime as needed. - fludrocortisone (FLORINEF) 0.1 mg tablet Taking 3 times a week - midodrine (PROAMATINE) 2.5 mg tablet Take 2.5 mg by mouth two times a day. - tiZANidine (ZANAFLEX) 2 mg tablet Take 1 tablet by mouth every 6 hours as needed. - zoledronic acid (ZOMETA INTRAVENOUS) Inject intravenously. Every 6 months - BENEFIBER, GUAR GUM, ORAL Take 2 teaspoonsful by mouth two times a day as needed. - meclizine (ANTIVERT) 25 mg tab Take 1 tablet by mouth every 6 hours as needed (dizziness). - Magnesium Glycinate 120mg 3 at night Stress, blood sugar, thyroid/hormones/adr enals/sleep/energy/t oxins/muscles/consti pation/asthma Work up to 3 capsules with meals [...] 1 tablet by mouth once daily. - ergocalciferol(VITAM IN D 400 UNIT CAP) Take 1,000 Units by mouth once daily. Problem List As Of Date 05/01/2025 Noted Resolved Irritable Bowel Syndrome [K58.9] OSTEOPENIA [M89.9, M94.9] 07/04/2009 Esophageal reflux [K21.9] Other forms of migraine [346.8] 05/04/2007 Unspecified constipation [K59.00] Asymptomatic Postmenopausal Status (Age-Related* 10/28/2012 Osteoarth NOS-L/Leg [[id number]] Palpitations [R00.2] 02/23/2009 Osteoporosis [M81.0] 07/04/2009 03/13/2012 Insomnia [G47.00] 02/11/2011 Hyponatremia [E87.1] 02/11/2011 Chronic fat (more content not included)... Normal [facility] Large Joint Arthro/Inj: R kn ee jointon 05-01-2025 Maggi Aldana PA-C 05/01/2025 12:06 PM Large Joint Arthro/Inj: R knee joint 05/01/2025 12:06 PM The procedure site was prepped in the usual sterile fashion. Site: R knee joint Medications: 20 mg sodium hyaluronate 10 mg/mL(mw 2.4 -3.6 million) Outcome: Tolerated well, no immediate complications Post-injection instructions were reviewed with the patient and the patient voiced understanding of these instructions. Informed Consent Consent Obtained: Verbal Wallace Protocol A moment to CARE was completed. SIGN IN Sign in communication not applicable due to emergent procedure. Personnel directly involved with the procedure wore the appropriate PPE. Special Equipment: N/A Patient/Surrogate Stated/Verified: Patient name, Date of , Relevant allergies and Intended procedure TIME OUT Relevant labs, photos, and/or imaging studies have been reviewed. Consent documented and matches the intended procedure. Correct side/site marked and visible. Medications required for procedure verified. No fire risk assessment and interventions applicable. No implant(s) inserted. SIGN OUT No specimen collected. All instruments, equipment, possible retained foreign bodies accounted for. No post-procedure POC communication to the patient's multidisciplinary team (including the bedside nurse for hospitalized patients) applicable. [facility] XR Knee - right 4 Viewson IMPRESSION: Lateral compartment predominant osteoarthritis. Business Analyst Intern: BO Transcribe Date/Time: Apr 29 2025 2:52P Dictated by : SYDNEY DEMARCO MD This examination was interpreted and the report reviewed and electronically signed by: SYDNEY DEMARCO MD on Apr 29 2025 2:52PM [facility] DIVISION OF RADIOLOGY * * *Final Report* * * DATE OF EXAM: Apr 24 2025 12:34PM WRX 5203 - XR KNEE 4V AP/PA BOTH+LAT/OSCAR RT / PROCEDURE REASON: Primary osteoarthritis of right knee * * * * Physician Interpretation * * * * EXAMINATION / TECHNIQUE: XR KNEE 4V AP/PA BOTH+LAT/OSCAR RT HISTORY: PT STATES HISTORY OF RIGHT KNEE PAIN Primary osteoarthritis of right knee COMPARISON: 08/10/2023. RESULT: No acute fracture or dislocation. Lateral compartment predominant osteoarthritis. Chondrocalcinosis. No joint effusion. DIVISION OF RADIOLOGY Provider, [facility] [place] - 04/29/2025 * * *Final Report* * * DATE OF EXAM: Apr 24 2025 12:34PM WRX 5203 - XR KNEE 4V AP/PA BOTH+LAT/OSCAR RT / PROCEDURE REASON: Primary osteoarthritis of right knee * * * * Physician Interpretation * * * * EXAMINATION / TECHNIQUE: XR KNEE 4V AP/PA BOTH+LAT/OSCAR RT HISTORY: PT STATES HISTORY OF RIGHT KNEE PAIN Primary osteoarthritis of right knee COMPARISON: 08/10/2023. RESULT: No acute fracture or dislocation. Lateral compartment predominant osteoarthritis. Chondrocalcinosis. No joint effusion. IMPRESSION IMPRESSION: Lateral compartment predominant osteoarthritis. Business Analyst Intern: BO Transcribe Date/Time: Apr 29 2025 2:52P Dictated by : SYDNEY DEMARCO MD This examination was interpreted and the report reviewed and electronically signed by: SYDNEY DEMARCO MD on Apr 29 2025 2:52PM EST [facility] XR Knee - right 4 ViewsOrder ed By: [facility] Provider on 04-29-2025 [facility] Re-Evaluation - PT (1)on Re-Evaluation - PT (1) Normal [facility] CNOVon 04-24-2025 CNOV Office Visit (ORTHWS) ROSANA MAKI ([id number]) 1940 F NFR Date Time Provider Department 04/24/25 11:30 AM MAGGI ALDANA During your visit today, we recorded the following information about you: Dipika Merchant MA 05/01/2025 8:07 AM Signed AMB ROOMING INTAKE FLOWSHEET DATA Pain Pain Level: 5 Pain Location: Shoulder-Right Description: Aching, Sharp Duration Amount of Time: (ongoing) Frequency: Intermittent (with movement) Intervention/Comfort measure: Heat Patient had Euflexxa injection into right knee. LOT # [id number] EXP 09/03/2025 Dipika Merchant, Maggi Holder PA-C 05/01/2025 8:07 AM Signed Maggi Aldana PA-C Department of Orthopaedics Orthopaedics [address] [facility] [address] Dept: [phone] Dept April 24, 2025 CHIEF COMPLAINT: Pain of the Right Shoulder Right Shoulder Pain: - Chronic pain, never fully resolved. - Last cortisone injection in August 2023 provided temporary relief for 1-2 months. - Aggravated by overhead movements; avoids certain exercises due to pain. - Engages in chair yoga, modifying movements to avoid pain. - Denies significant relief from previous treatments. Right Knee Pain: - Chronic pain with variable locations: lateral, posterior, and medial aspects. - Pain radiates down the right leg at times. - Aggravated by extensive walking, stair climbing, and standing from a sitting position without arm support. - Engages in leg press, abduction, and adduction exercises without significant pain. - Previous euflexxa injections provided better relief than cortisone. Polyneuropathy: - Diagnosed with polyneuropathy of unknown etiology. - Symptoms have worsened over the past 2.5-3 years. - Undergoing physical therapy for balance and strength, reports improvement in balance. ASSESSMENT: M17.11 Primary osteoarthritis of right knee (primary encounter diagnosis) M19.011 Primary osteoarthritis of right shoulder PLAN: 1. Primary osteoarthritis of right knee (M17.11) - Start Euflexxa series (3 weekly injections); patient previously tolerated and found beneficial. - Repeat knee X-rays ordered; to be completed today or prior to next Thursday's appointment. - Advised to avoid exercises that exacerbate knee pain, such as standing from a seated position without arm support. - Follow-up next Thursday for second Euflexxa injection. 2. Primary osteoarthritis of right shoulder (M19.011) - Chronic pain with limited relief from prior corticosteroid August 2023. - X-rays from today compared to 2020 show no significant progression; joint space narrowing remains severe. - Corticosteroid injection administered today; may repeat every 91 days if beneficial. - Advised to avoid overhead activities and exercises that aggravate pain; maintain arm position below 90 degrees during activities. - Discussed potential benefit of medical massage for muscle tension; patient may trial at [employer]. Mrs. Rosana Maki was advised as to contrast therapies and/or to take analgesics/anti-infl ammatories as needed and all contraindications were reviewed. OBJECTIVE: Mrs. Rosana Maki is a pleasant 85 year old in no apparent distress. Gen:There were no vitals taken for this visit. nl development, non obese, no deformities ENT: Normocephalic, normal hearing, moist mucosa CV: Pulses:Radial= 2+ and symmetric, capillary refill < 2 secs, no peripheral edema/varicosities Skin: no rash, bruising or lesions. Good turgor. Psych: cooperative and appropriate, alert and oriented x 3, good mood and affect. Musculoskeletal: Supple range of motion of the cervical spine without pain. Spurling signs are negative. No atrophy of the deltoid and shoulder musculature. Right shoulder is nontender to palpation over the SC joint, clavicle and AC joint. Mild tenderness to palpation over the posterior shoulder, nontender at anterior lateral corner of the shoulder and greater tuberosity. Mildly tender at the bicipital groove and coracoid. Active range of motion is 165 degrees of forward elevation, 45 degrees external rotation, and internal rotation to the low lumbar spine. No laxity with anterior and posterior stress. Negative Neer and negative Walter impingement signs. 5/5 strength with supraspinatus, infraspinatus and subscapularis. Sensation is intact in the axillary, radial, median and ulnar nerve distribution KNEE EXAM: Right: Alignment: Valgus deformity, Partially Correctable Range of motion is lacking a few degrees secondary to tight hamstrings degrees in extension and 120 degrees of flexion. Extension Lag: < 10 degrees Pain with ROM: Yes Effusion: None Tender to the palpation of Patellar tendon, Lateral femoral condyle, and Lateral joint line Pain with patellar compression: No Stability: Anterior/Posterior stable and (more content not included)... Normal [facility] Large Joint Arthro/Inj: R kn ee jointon 04-24-2025 Maggi Aldana PA-C 05/01/2025 8:07 AM Large Joint Arthro/Inj: R knee joint 04/24/2025 2:16 PM The procedure site was prepped in the usual sterile fashion. Site: R knee joint Medications: 20 mg sodium hyaluronate 10 mg/mL(mw 2.4 -3.6 million) Outcome: Tolerated well, no immediate complications Post-injection instructions were reviewed with the patient and the patient voiced understanding of these instructions. Informed Consent Consent Obtained: Verbal Wallace Protocol A moment to CARE was completed. SIGN IN Sign in communication not applicable due to emergent procedure. Personnel directly involved with the procedure wore the appropriate PPE. Special Equipment: N/A Patient/Surrogate Stated/Verified: Patient name, Date of , Relevant allergies and Intended procedure TIME OUT Relevant labs, photos, and/or imaging studies have been reviewed. Consent documented and matches the intended procedure. Correct side/site marked and visible. Medications required for procedure verified. No fire risk assessment and interventions applicable. No implant(s) inserted. SIGN OUT No specimen collected. All instruments, equipment, possible retained foreign bodies accounted for. No post-procedure POC communication to the patient's multidisciplinary team (including the bedside nurse for hospitalized patients) applicable. [facility] Large Joint Arthro/Inj: R quispe bacromial bursaon 04-24-2025 Maggi Aldana PA-C 05/01/2025 8:07 AM Large Joint Arthro/Inj: R subacromial bursa 04/24/2025 2:16 PM The procedure site was prepped in the usual sterile fashion. Site: R subacromial bursa Medications: 6 mg betamethasone acetate-betamethason e sodium phosphate 6 mg/mL Anesthetics: 5 mL lidocaine (PF) 10 mg/mL (1 %) Outcome: Tolerated well, no immediate complications Post-injection instructions were reviewed with the patient and the patient voiced understanding of these instructions. Informed Consent Consent Obtained: Verbal Wallace Protocol A moment to CARE was completed. SIGN IN Sign in communication not applicable due to emergent procedure. Personnel directly involved with the procedure wore the appropriate PPE. Special Equipment: N/A Patient/Surrogate Stated/Verified: Patient name, Date of , Relevant allergies and Intended procedure TIME OUT Relevant labs, photos, and/or imaging studies have been reviewed. Consent documented and matches the intended procedure. Correct side/site marked and visible. Medications required for procedure verified. No fire risk assessment and interventions applicable. No implant(s) inserted. SIGN OUT No specimen collected. All instruments, equipment, possible retained foreign bodies accounted for. No post-procedure POC communication to the patient's multidisciplinary team (including the bedside nurse for hospitalized patients) applicable. [facility] XR KNEE 4V AP/PA BOTH+LAT/ME R RTon 04-24-2025 XR KNEE 4V AP/PA BOTH+LAT/OSCAR RT * * *Final Report* * * DATE OF EXAM: Apr 24 2025 12:34PM WRX 5203 - XR KNEE 4V AP/PA BOTH+LAT/OSCAR RT / PROCEDURE REASON: Primary osteoarthritis of right knee * * * * Physician Interpretation * * * * EXAMINATION / TECHNIQUE: XR KNEE 4V AP/PA BOTH+LAT/OSCAR RT HISTORY: PT STATES HISTORY OF RIGHT KNEE PAIN Primary osteoarthritis of right knee COMPARISON: 08/10/2023. RESULT: No acute fracture or dislocation. Lateral compartment predominant osteoarthritis. Chondrocalcinosis. No joint effusion. IMPRESSION: Lateral compartment predominant osteoarthritis. Business Analyst Intern: [facility] Transcribe Date/Time: Apr 29 2025 2:52P Dictated by : SYDNEY DEMARCO MD This examination was interpreted and the report reviewed and electronically signed by: SYDNEY DEMARCO MD on Apr 29 2025 2:52PM EST [id number] CN Normal [facility] XR Knee - right 4 Viewson Radiology Study observation (narrative) [facility] XR SHLDR >/=3V AP/ELISEO AP/OTH R RTon 04-24-2025 XR SHLDR >/=3V AP/ELISEO AP/OTHR RT * * *Final Report* * * DATE OF EXAM: Apr 24 2025 11:08AM WRX 5253 - XR SHLDR >/=3V AP/ELISEO AP/OTHR RT / PROCEDURE REASON: Right shoulder pain, unspecified chronicity * * * * Physician Interpretation * * * * EXAMINATION / TECHNIQUE: XR SHLDR >/=3V AP/ELISEO AP/OTHR RT HISTORY: PT STATES RIGHT SHOULDER PAIN WITHOUT INJURY Right shoulder pain, unspecified chronicity COMPARISON: 01/04/2021. RESULT: No fracture or dislocation. Severe glenohumeral osteoarthritis. 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 There is calcific tendinosis. The acromioclavicular joint is preserved. IMPRESSION: Severe glenohumeral osteoarthritis. Business Analyst Intern: BO Transcribe Date/Time: Apr 29 2025 2:51P Dictated by : SYDNEY DEMARCO MD This examination was interpreted and the report reviewed and electronically signed by: SYDNEY DEMARCO MD on Apr 29 2025 2:52PM EST [id number] CN Normal [facility] MR/BMS.BPon 04-18-2025 MR/BMS.BP Normal [facility] BLADDER SCANon 04-17-2025 PVR: zero [facility] CNNURSEon 04-17-2025 CNNURSE Nurse Visit (UROLAE) ROSANA MAKI ([id number]) 1940 F NFR Date Time Provider Department 04/17/25 3:30 PM NURSE UROL EXCHANGE UROLAE During your visit today, we recorded the following information about you: Taye Walton RN 04/17/2025 4:12 PM Signed Patient states that she is voiding without difficulty. Bladder scan is zero. Instructed if she has any further difficulty urinating and office is open we can make arrangments to see her. If she is unable to void and office is closed. Go to ED. Verbalized understanding. Taye Walton RN Referring Provider: ROCHELLE HACKETT [[id number]] Allergies As of Date: 04/17/2025 Noted Allergy Reaction ADHESIVE TAPE (ROSINS) 11/11/2013 [...] allergy is accurate or not. Date Reviewed: 04/17/2025 Reviewed by: Taye Walton RN - Fully Assessed Reason for Visit: Post Void Residual [355] Primary Visit Diagnosis:Urine retention [R33.9] Order(s):BLADDER SCAN [[id number]] Order #: [id number] Prescriptions as of 04/17/2025 - doxycycline hyclate (VIBRAMYCIN) 100 mg capsule Take 1 capsule by mouth two times a day for 14 days. - esomeprazole (NEXIUM) 40 mg capsule Take 1 capsule by mouth daily before breakfast. 1/2 hr before meal. - famotidine (PEPCID) 20 mg tablet Take 1 tablet by mouth at bedtime as needed. - fludrocortisone (FLORINEF) 0.1 mg tablet Taking 3 times a week - midodrine (PROAMATINE) 2.5 mg tablet Take 2.5 mg by mouth two times a day. - tiZANidine (ZANAFLEX) 2 mg tablet Take 1 tablet by mouth every 6 hours as needed. - zoledronic acid (ZOMETA INTRAVENOUS) Inject intravenously. Every 6 months - BENEFIBER, GUAR GUM, ORAL Take 2 teaspoonsful by mouth two times a day as needed. - meclizine (ANTIVERT) 25 mg tab Take 1 tablet by mouth every 6 hours as needed (dizziness). - Magnesium Glycinate 120mg 3 at night Stress, blood sugar, thyroid/hormones/adr enals/sleep/energy/t oxins/muscles/consti pation/asthma Work up to 3 capsules with meals [...] 1 tablet by mouth once daily. - ergocalciferol(VITAM IN D 400 UNIT CAP) Take 1,000 Units by mouth once daily. Problem List As Of Date 04/17/2025 Noted Resolved Irritable Bowel Syndrome [K58.9] OSTEOPENIA [M89.9, M94.9] 07/04/2009 Esophageal reflux [K21.9] Other forms of migraine [346.8] 05/04/2007 Unspecified constipation [K59.00] Asymptomatic Postmenopausal Status (Age-Related* 10/28/2012 Osteoarth NOS-L/Leg [[id number]] Palpitations [R00.2] 02/23/2009 Osteoporosis [M81.0] 07/04/2009 03/13/2012 [...] of b*09/08/2017 SIADH (syndrome of inappropriate ADH production* 8 Chronic pain of right knee [M25.561, G89.29] 10/06/2018 Hospital discharge follow-up [Z09] 11/18/2019 11/12/2022 Mild cognitive disorder [F09] 11/27/2020 Protein-calorie malnutrition, unspecified sever*01/14/2023 Adrenal insufficiency (HCC) [E27.40] 02/10/2025 Encounter Status:Closed by TAYE WALTON on 04/17/25 [facility] CNOVon 04-17-2025 CNOV Office Visit (UROLAE) ROSANA MAKI ([id number]) 1940 F NFR Date Time Provider Department 04/17/25 9:30 AM MELISSA MAYORGA During your visit today, we recorded the following information about you: Pulse Blood pressure Height 69/minute 151/82 1.702 m Melissa Mayorga APRN.[facility] BLANCHER 04/17/2025 10:44 AM Signed [facility] [place] [facility] - [place] UROL [place] EXCHANGE NEW PATIENT UROLOGY VISIT 04/17/2025 7:51 AM PATIENT NAME: Rosana Maki DATE OF : 1940 TODAY'S DATE: 04/17/2025 Referring Provider: Rochelle Hackett [address] [facility] [address] Referring Note Reviewed: Yes Chief Complaint: urinary retention History of Present Illness: Ms. Maki is a 85 year old female who presents to the office regarding urinary retention. [facility], follows with Dr Sahu for Nephrology Patient had eye surgery on 04/10/25 She went to [facility] on 04/11/25 regarding urinary retention; cotto catheter was placed. Here today for TOV Also had catheter after ovarian surgery in [address] Prince for Urology regarding urinary incontinence, was told their office is temporarily closed because they are moving location. Plans to go back there for ongoing care. Review of Systems Constitutional: Negative for fever. Genitourinary: Positive for difficulty urinating. Negative for dysuria, flank pain, frequency, hematuria and urgency. See HPI Past Medical History: PAST MEDICAL HISTORY Diagnosis Date Abnormality of [...] region and thigh 04/27/2014 Recurrent UTI SOLAR LENGINES////DYSCHROM IA OTHER 04/20/2008 Tachycardia tachycardia, atrial flutter Unspecified constipation Vitamin D deficiency Past Surgical History: PAST SURGICAL HISTORY Procedure Laterality Date CATHETER, ABLATION 08/19/2013 for afib COLONOSCOPY FLX DX W/COLLJ SPEC WHEN PFRMD 07/23/2004 repeat due 2013 COLONOSCOPY FLX DX W/COLLJ SPEC WHEN PFRMD 06/01/2014 Colonoscopy COLONOSCOPY SCREENING 2013 COLONOSCOPY SCREENING 2018 DILATION AND CURETTAGE DXAND/THER NONOBSTETRIC 1989 EGD TRANSORAL BIOPSY SINGLE/MULTIPLE EGD TRANSORAL BIOPSY SINGLE/MULTIPLE 08/01/2010 ESOPHAGOGASTRODUODEN OSCOPY TRANSORAL DIAGNOSTIC 06/01/2014 EGD NIPPLE EXPLORATION 09/27/2009 LEFT, surgical bx OOPHORECTOMY PARTIAL/TOTAL UNI/BI AGE 26 Oophorectomy-LEFT PAST SURGICAL HISTORY OF Left 04/2017 breast mastectomy SIGMOIDOSCOPY FLX DX W/COLLJ SPEC BR/WA IF PFRMD 07/23/2004 Sigmoidoscopy Social History: Social History Tobacco Use Smoking status: Never Smokeless tobacco: Never Vaping Use Vaping status: Never Used Substance Use Topics Alcohol use: Yes Alcohol/week: 1.0 standard drink of alcohol Types: 1 Glasses of Wine (5oz) per week Comment: 1 glass per week Drug use: No Medications: Prior to Admission medications : Medication doxycycline hyclate (VIBRAMYCIN) 100 mg capsule, Sig Take 1 capsule by mouth two times a day for 14 days., Start Date 04/03/25, End Date 04/17/25, Taking? , Authorizing Provider Saray Bowser APRN.[facility] Medication esomeprazole (NEXIUM) 40 mg capsule, Sig Take 1 capsule by mouth daily before breakfast. 1/2 hr before meal., Start Date 02/22/25, End Date , Taking? , Authorizing Provider Al Nichole APRN.[facility] Medication famotidine (PEPCID) 20 mg tablet, Sig Take 1 tablet by mouth at bedtime as needed., Start Date 02/01/25, End Date , Taking? , Authorizing Provider Al Nichole APRN.[facility] Medication fludrocortisone (FLORINEF) 0.1 mg tablet, Sig Taking 3 times a week (more content not included)... [facility] 04-12-2025 [facility] Telephone (INTMWS) ROSANA MAKI ([id number]) 1940 F NFR Date Time Provider Department 04/12/25 ROCHELLE HACKETT INTMWS During your visit today, we recorded the following information about you: Amaya Blankenship, RN 04/12/2025 9:51 AM Signed Pt called in and reports she was I the ER last night following eye surgery. She states they told her the anesthesia caused vomiting and urinary retention. The Pt states they placed a cotto catheter. They told her to have the cotto removed in a few days, because the retention should be cleared up. Pt states she sees Dr Prince, but she tried calling their office and they are still shut down for their move to [facility]. I told her our PCPs didn't remove cotto caths. She was asking if provider would be able to place a consult for Urology. Please call and advise. TRELL Fiore Chitra, MD 04/12/2025 1:03 PM Signed Orders placed as requested Regards, Cristina Casiano MD, MA 04/12/2025 1:22 PM Signed Order faxed as requested. Allergies As of Date: 04/12/2025 Noted Allergy Reaction ADHESIVE TAPE (ROSINS) 11/11/2013 [...] allergy is accurate or not. Date Reviewed: 04/03/2025 Reviewed by: Saray Bowser APRN.[facility] - Fully Assessed Reason for Visit: Patient Update [4844] Patient Question [7147] Primary Visit Diagnosis:Urinary retention [R33.9] Order(s):CONSULT TO UROLOGY [9041] Order #: [id number]: 1 FUTURE Prescriptions as of 04/12/2025 - doxycycline hyclate (VIBRAMYCIN) 100 mg capsule Take 1 capsule by mouth two times a day for 14 days. - esomeprazole (NEXIUM) 40 mg capsule Take 1 capsule by mouth daily before breakfast. 1/2 hr before meal. - famotidine (PEPCID) 20 mg tablet Take 1 tablet by mouth at bedtime as needed. - fludrocortisone (FLORINEF) 0.1 mg tablet Taking 3 times a week - midodrine (PROAMATINE) 2.5 mg tablet Take 2.5 mg by mouth two times a day. - tiZANidine (ZANAFLEX) 2 mg tablet Take 1 tablet by mouth every 6 hours as needed. - zoledronic acid (ZOMETA INTRAVENOUS) Inject intravenously. Every 6 months - BENEFIBER, GUAR GUM, ORAL Take 2 teaspoonsful by mouth two times a day as needed. - meclizine (ANTIVERT) 25 mg tab Take 1 tablet by mouth every 6 hours as needed (dizziness). - Magnesium Glycinate 120mg 3 at night Stress, blood sugar, thyroid/hormones/adr enals/sleep/energy/t oxins/muscles/consti pation/asthma Work up to 3 capsules with meals [...] 1 tablet by mouth once daily. - ergocalciferol(VITAM IN D 400 UNIT CAP) Take 1,000 Units by mouth once daily. Problem List As Of Date 04/12/2025 Noted Resolved Irritable Bowel Syndrome [K58.9] OSTEOPENIA [M89.9, M94.9] 07/04/2009 Esophageal reflux [K21.9] Other forms of migraine [346.8] 05/04/2007 Unspecified constipation [K59.00] Asymptomatic Postmenopausal Status (Age-Related* 10/28/2012 Osteoarth NOS-L/Leg [[id number]] Palpitations [R00.2] 02/23/2009 Osteoporosis [M81.0] 07/04/2009 03/13/2012 [...] of b*09/08/2017 SIADH (syndrome of inappropriate ADH production* 8 Chronic pain of right knee [M25.561, G89.29] 10/06/2018 Hospital discharge follow-up [Z09] 11/18/2019 11/12/2022 Mild cognitive disorder [F09] 11/27/2020 Protein-calorie malnutrition, unspecified sever*01/14/2023 Adrenal insufficiency (HCC) [E27.40] 02/10/2025 Encounter (more content not included)... Normal [facility] Abdomen/Pelvis W IV Cont ONL Yon 04-11-2025 Abdomen/Pelvis W IV Cont ONLY Normal [facility] CBC W/Diff, Automatedon 07- Absolute Lymph 2.38 X10 3/uL Normal 0.83-4.51 [facility] Comment on above: Performed By: #### L 500.4050, L501.2450, L100.0100 ####[facility] [address] [place], [address] Absolute Neut 3.7 X10 3/uL Normal 2.0-7.7 [facility] Comment on above: Performed By: #### L 500.4050, L501.2450, L100.0100 ####[facility] [address] [place], [address] Basophils/100 WBC (Bld) 0.6 % Normal 0-1 [facility] Comment on above: Performed By: #### L 500.4050, L501.2450, L100.0100 ####[facility] [address] [place], [address] Eosinophils/100 WBC (Bld) 0.3 % Normal 0-5 [facility] Comment on above: Performed By: #### L 500.4050, L501.2450, L100.0100 ####[facility] [address] [place], [address] Erythrocyte distribution width (RBC) [Ratio] 12.9 % Normal 11.6-14.6 [facility] Comment on above: Performed By: #### L 500.4050, L501.2450, L100.0100 ####[facility] [address] [place], [address] Hematocrit (Bld) [Volume fraction] 39.0 % Normal 37-47 [facility] Comment on above: Performed By: #### L 500.4050, L501.2450, L100.0100 ####[facility] [address] [place], [address] Hemoglobin (Bld) [Mass/Vol] 13.5 g/dL Normal 12.0-15.0 [facility] Comment on above: Performed By: #### L 500.4050, L501.2450, L100.0100 ####[facility] [address] [place], [address] IG% 0.200 Normal 0.0-0.9 [facility] Comment on above: Result Comment: IG% - Immature Granulocytes (promyelocytes, myelocytes andmetamyelocytes) > 1% indicates that a LEFT SHIFT is Present. Performed By: #### L 500.4050, L501.2450, L100.0100 ####[facility] [address] [place], [address] Lymphocytes/100 WBC (Bld) 36.8 % Normal 19-41 [facility] Comment on above: Performed By: #### L 500.4050, L501.2450, L100.0100 ####[facility] [address] [place], [address] MCH (RBC) [Entitic mass] 32.9 pg High 27.0-32.0 [facility] Comment on above: Performed By: #### L 500.4050, L501.2450, L100.0100 ####[facility] [address] [place], [address] MCHC (RBC) [Mass/Vol] 34.6 g/dL Normal 32-36 [facility] Comment on above: Performed By: #### L 500.4050, L501.2450, L100.0100 ####[facility] [address] [place], [address] MCV (RBC) [Entitic vol] 95.1 fL Normal 81-99 [facility] Comment on above: Performed By: #### L 500.4050, L501.2450, L100.0100 ####[facility] [address] [place], [address] Monocytes/100 WBC (Bld) 5.1 % Normal 0-10 [facility] Comment on above: Performed By: #### L 500.4050, L501.2450, L100.0100 ####[facility] [address] [place], [address] Neutrophils/100 WBC (Bld) 57.0 % Normal 47-70 [facility] Comment on above: Performed By: #### L 500.4050, L501.2450, L100.0100 ####[facility] [address] [place], [address] Nucleated RBC (Bld) [#/Vol] 0 10*3/uL Normal 0-5 [facility] Comment on above: Performed By: #### L 500.4050, L501.2450, L100.0100 ####[facility] [address] [place], [address] Platelet mean volume (Bld) [Entitic vol] 9.0 fL Normal 6.2-12.0 [facility] Comment on above: Performed By: #### L 500.4050, L501.2450, L100.0100 ####[facility] [address] [place], [address] Platelets (Bld) [#/Vol] 263 10*3/uL Normal 150-450 [facility] Comment on above: Performed By: #### L 500.4050, L501.2450, L100.0100 ####[facility] [address] [place], [address] RBC (Bld) [#/Vol] 4.10 10*6/uL Low 4.2-5.4 [facility] Comment on above: Performed By: #### L 500.4050, L501.2450, L100.0100 ####[facility] [address] [place], [address] RDW SD 45.5 fl High 35.1-43.9 [facility] Comment on above: Performed By: #### L 500.4050, L501.2450, L100.0100 ####[facility] [address] [place], [address] WBC (Bld) [#/Vol] 6.5 10*3/uL Normal 4.4-11.0 [facility] Comment on above: Performed By: #### L 500.4050, L501.2450, L100.0100 ####[facility] [address] [place], [address] Comprehensive Metabolic Prof [facility] 04-11-2025 Albumin [Mass/Vol] 4.0 g/dL Normal 3.4-4.8 [facility] Comment on above: Performed By: #### L 500.4050, L501.2450, L100.0100 ####[facility] [address] [place], [address] Albumin/Globulin [Mass ratio] 1.2 {ratio} Normal 0.9-2.4 [facility] Comment on above: Performed By: #### L 500.4050, L501.2450, L100.0100 ####[facility] [address] [place], [address] ALK PHOS 106 U/L High 35-104 [facility] Comment on above: Performed By: #### L 500.4050, L501.2450, L100.0100 ####[facility] [address] [place], [address] ALT [Catalytic activity/Vol] 23 U/L Normal <=34 [facility] Comment on above: Performed By: #### L 500.4050, L501.2450, L100.0100 ####[facility] [address] [place], [address] AST [Catalytic activity/Vol] 34 U/L High <=31 [facility] Comment on above: Performed By: #### L 500.4050, L501.2450, L100.0100 ####[facility] [address] [place], [address] Bilirubin [Mass/Vol] 0.91 mg/dL Normal 0.00-1.30 [facility] Comment on above: Performed By: #### L 500.4050, L501.2450, L100.0100 ####[facility] [address] [place], [address] BUN/CRE 23.1 RATIO High 10-20 [facility] Comment on above: Performed By: #### L 500.4050, L501.2450, L100.0100 ####[facility] [address] [place], [address] Calcium [Mass/Vol] 8.7 mg/dL Normal 7.6-11.0 [facility] Comment on above: Performed By: #### L 500.4050, L501.2450, L100.0100 ####[facility] [address] [place], [address] Chloride [Moles/Vol] 95 mmol/L Low 98-108 [facility] Comment on above: Performed By: #### L 500.4050, L501.2450, L100.0100 ####[facility] [address] [place], [address] CO2 [Moles/Vol] 21.2 mmol/L Normal 21.0-32.0 [facility] Comment on above: Performed By: #### L 500.4050, L501.2450, L100.0100 ####[facility] [address] [place], [address] Creatinine [Mass/Vol] 0.72 mg/dL Normal 0.70-1.20 [facility] Comment on above: Performed By: #### L 500.4050, L501.2450, L100.0100 ####[facility] [address] [place], [address] ECRCL 47.69 ml/min Low 50-250 [facility] Comment on above: Performed By: #### L 500.4050, L501.2450, L100.0100 ####[facility] [address] [place], [address] GAP 13 Normal 5-15 [facility] Comment on above: Performed By: #### L 500.4050, L501.2450, L100.0100 ####[facility] [address] [place], [address] GFR/1.73 sq M.predicted among non-blacks MDRD (S/P/Bld) [Vol rate/Area] 83 mL/min/{1.73_m2} Normal >60 [facility] Comment on above: Result Comment: mL/m in/1.73m2 CKD-EPI Creatinine Equation (2020) Performed By: #### L 500.4050, L501.2450, L100.0100 ####[facility] [address] [place], [address] Globulin (S) [Mass/Vol] 3.2 g/dL Normal 2.2-4.2 [facility] Comment on above: Performed By: #### L 500.4050, L501.2450, L100.0100 ####[facility] [address] [place], [address] Glucose [Mass/Vol] 150 mg/dL High 70-99 [facility] Comment on above: Performed By: #### L 500.4050, L501.2450, L100.0100 ####[facility] [address] [place], [address] Potassium [Moles/Vol] 4.1 mmol/L Normal 3.3-5.1 [facility] Comment on above: Performed By: #### L 500.4050, L501.2450, L100.0100 ####[facility] [address] [place], [address] Sodium [Moles/Vol] 129 mmol/L Low 133-145 [facility] Comment on above: Performed By: #### L 500.4050, L501.2450, L100.0100 ####[facility] [address] [place], [address] T PROT 7.2 g/dL Normal 5.9-8.4 [facility] Comment on above: Performed By: #### L 500.4050, L501.2450, L100.0100 ####[facility] [address] [place], [address] Urea nitrogen [Mass/Vol] 17 mg/dL Normal 4-19 [facility] Comment on above: Performed By: #### L 500.4050, L501.2450, L100.0100 ####[facility] [address] [place], [address] Emergency Department Summary on 04-11-2025 Emergency Department Summary Normal [facility] Lipaseon 04-11-2025 Lipase [Catalytic activity/Vol] 26 U/L Normal 13-75 [facility] Comment on above: Result Comment: Chela mike note:LIPASE revised reference range effective 22.New Lipase methodology. Expected to produce lower valuesthan the previous assay method.NEW Reference Range: 13 - 75 U/L Performed By: #### L 500.4050, L501.2450, L100.0100 ####[facility] [address] [place], [address] Urinalysis, Completeon 04-11 EPI,SQUAMOUS 0-5 SEEN Normal 5-10 [facility] Comment on above: Order Comment: CLEAN CATCH Performed By: #### L 400.0001 ####[facility] [address] [place], [address] RBC 0-5 SEEN Normal 0-5 [facility] Comment on above: Order Comment: CLEAN CATCH Performed By: #### L 400.0001 ####[facility] [address] [place], [address] WBC 0-5 SEEN Normal 0-5 [facility] Comment on above: Order Comment: CLEAN CATCH Performed By: #### L 400.0001 ####[facility] [address] [place], [address] BACTERIA 0 SEEN Normal None Seen [facility] Comment on above: Order Comment: CLEAN CATCH Performed By: #### L 400.0001 ####[facility] [address] [place], [place], [address] Mucus Ql (Urine sed) 0 SEEN Normal [facility] Comment on above: Order Comment: CLEAN CATCH Performed By: #### L 400.0001 ####[facility] [address] [place], [place], [address] CNOVon 04-03-2025 CNOV Office Visit (WOUCA) ROSANA MAKI ([id number]) 1940 F NFR Date Time Provider Department 04/03/25 7:00 PM SARAY BOWSER During your visit today, we recorded the following information about you: Temperature Pulse Respiration Blood pressure 96.9 degrees 62/minute 16/minute 102/60 Weight 55.6 kg Saray Bowser APRN.ALMOND BLANCHER 04/03/2025 7:11 PM Signed Avoiding Tick Bites How can I avoid tick bites? If you are planning an outdoor activity, especially those in a heavily wooded area, it is important to follow a few simple precautions to protect yourself from tick bites. Wear long sleeved, light-colored clothing, with tightly woven fabric. This gives ticks less area to target and allows you to see ticks on your clothing. When traveling through the fine or grassy [place], stay near the center of the trails. At home, make sure that you keep your lawn mowed and bushes and trees trimmed as short as possible. If you choose to apply tick repellents, such as those containing DEET, try to avoid spraying them directly to your bare skin. (high concentrations of DEET may have harmful effects on the nervous system.) Apply the spray to your clothing, socks, shoes, tents and backpacks. When returning from the outdoors, check for ticks. Be especially observant of hair, body folds, ears, underarms and the back. Check your clothes and gear for ticks and wash these items immediately. What if I have been bitten by a tick? If you discover a tick, remove it immediately. The longer the tick feeds, the greater chance that it can transmit its bacteria to you. The easiest removal method is to use a pair of tweezers, grasp the tick as close to your skin as possible, and gently pull the tick off. Then, thoroughly wash your hands and the bite area with rubbing alcohol to prevent transmission to other areas of your body. When should I call the doctor? It is best to wait and see whether you develop any signs or symptoms. If a large red lesa forms around the tick bite or if you develop fever, flu-like symptoms, rash, or more severe illness, contact your doctor right away. Your doctor can determine whether these symptoms might be caused by a tick-borne disease, and whether antibiotics will be needed. Is there a vaccine for preventing tick-borne disease in humans? Currently there are vaccines being tested, but there are no guarantees that they will be effective. The best option is to take precautions so that tick bites do not occur in the first place. Early Signs and Symptoms (3 to 30 days after tick bite) Fever, chills, headache, fatigue, muscle and joint aches, and swollen lymph nodes Erythema migrans (EM) rash: Occurs in approximately 70 to 80 percent of infected persons Begins at the site of a tick bite after a delay of 3 to 30 days (average is about 7 days) Expands gradually over a period of days reaching up to 12 inches or more (30 cm) across May feel warm to the touch but is rarely itchy or painful Sometimes clears as it enlarges, resulting in a target or ?bull's-eye? appearance May appear on any area of the body Later Signs and Symptoms (days to months after tick bite) Severe headaches and neck stiffness Additional EM rashes on other areas of the body Arthritis with severe joint pain and swelling, particularly the knees and other large joints. Facial or Farr's palsy (loss of muscle tone or droop on one or both sides of the face) Intermittent pain in tendons, muscles, joints, and bones Heart palpitations or an irregular heart beat (Lyme carditis) Episodes of dizziness or shortness of breath Inflammation of the brain and spinal cord Nerve pain Shooting pains, numbness, or tingling in the hands or feet Problems with short-term memory Saray Bowser APRN.[facility] 04/03/2025 7:40 PM Signed [facility] Subjective Rosana Maki is a 85 year old female. Patient presents with: Insect Bite: 4-5 ticks in groin area x noon today HPI Tick Removal: - Discovered ticks in the groin area approximately one hour ago. - Exposure occurred around 12:00 today while walking in the fine with tall grass and trees. - Ticks have burrowed into the skin; patient believes they are deer ticks. - Denies SOB, chest pain, fever, nausea, emesis, or diarrhea. Allergies: - Adhesive tape, chamomile, erythromycin, grass pollen, mold, penicillin, pollen, pravastatin, sulfa. Medications: - Tylenol, Eliquis, Benefiber, calcium, Tikosyn, vitamin D, Nexium, Pepcid, Florinef, magnesium, meclizine, Toprol, midodrine, Zanaflex, zoledronic acid. - Discontinued Mucinex after resolution of bronchitis. - Discontinued lidocaine for back pain. Review of Systems Constitutional: (-) fever Cardiovascular: (-) chest pain Respiratory: (-) shortness of breath Skin: (+) tick bites Objective BP 102/60 Pulse 62 (more content not included)... Normal [facility] 04-03-2025 [facility] Telephone (INTMWS) ROSANA MAKI ([id number]) 1940 F NFR Date Time Provider Department 04/03/25 ROCHELLE HACKETT INTWS During your visit today, we recorded the following information about you: Amaya Blankenship, RN 04/03/2025 5:56 PM Signed Pt called in and reports she has 5-6 tiny ticks in her groin area. She states she thinks they are deer ticks because of their size. I let her know [facility] was open until 730 pm, and I called down to make sure this was something they could take care of Pt will be coming in. Amaya Blankenship RN Allergies As of Date: 04/03/2025 Noted Allergy Reaction ADHESIVE TAPE (ROSINS) 11/11/2013 [...] allergy is accurate or not. Date Reviewed: 03/06/2025 Reviewed by: Sydney Browning MA - Fully Assessed Reason for Visit: Patient Update [1234] Prescriptions as of 04/03/2025 - guaiFENesin (MUCINEX) 600 mg 12 hr tablet Take 1 tablet by mouth two times a day. - esomeprazole (NEXIUM) 40 mg capsule Take 1 capsule by mouth daily before breakfast. 1/2 hr before meal. - lidocaine (LIDODERM) 5 % Place patch to back for 12 hours. Remove old patch and wait 12 hours prior to placing new patch. - famotidine (PEPCID) 20 mg tablet Take 1 tablet by mouth at bedtime as needed. - fludrocortisone (FLORINEF) 0.1 mg tablet Taking 3 times a week - midodrine (PROAMATINE) 2.5 mg tablet Take 2.5 mg by mouth two times a day. - tiZANidine (ZANAFLEX) 2 mg tablet Take 1 tablet by mouth every 6 hours as needed. - zoledronic acid (ZOMETA INTRAVENOUS) Inject intravenously. Every 6 months - BENEFIBER, GUAR GUM, ORAL Take 2 teaspoonsful by mouth two times a day as needed. - meclizine (ANTIVERT) 25 mg tab Take 1 tablet by mouth every 6 hours as needed (dizziness). - Magnesium Glycinate 120mg 3 at night Stress, blood sugar, thyroid/hormones/adr enals/sleep/energy/t oxins/muscles/consti pation/asthma Work up to 3 capsules with meals [...] 1 tablet by mouth once daily. - ergocalciferol(VITAM IN D 400 UNIT CAP) Take 1,000 Units by mouth once daily. 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] Palpitations [R00.2] 02/23/2009 Osteoporosis [M81.0] 07/04/2009 03/13/2012 [...] of b*09/08/2017 SIADH (syndrome of inappropriate ADH production* 8 Chronic pain of right knee [M25.561, G89.29] 10/06/2018 Hospital discharge follow-up [Z09] 11/18/2019 11/12/2022 Mild cognitive disorder [F09] 11/27/2020 Protein-calorie malnutrition, unspecified sever*01/14/2023 Adrenal insufficiency (HCC) [E27.40] 02/10/2025 Encounter Status:Closed by AMAYA BLANKENSHIP on 04/03/25 Normal [facility] Inital Evaluation (1) - PTon 03-28-2025 Inital Evaluation (1) - PT Normal [facility] Basic Metabolic Profile (BMP )on 03-24-2025 BUN/CRE 18.0 RATIO Normal 10-20 [facility] Comment on above: Performed By: #### L 500.2500 ####[facility] [address] [place], [address] Calcium [Mass/Vol] 8.7 mg/dL Normal 7.6-11.0 [facility] Comment on above: Performed By: #### L 500.2500 ####[facility] [address] [place], [address] Chloride [Moles/Vol] 97 mmol/L Low 98-108 [facility] Comment on above: Performed By: #### L 500.2500 ####[facility] [address] [place], [address] CO2 [Moles/Vol] 26.3 mmol/L Normal 21.0-32.0 [facility] Comment on above: Performed By: #### L 500.2500 ####[facility] [address] [place], [address] Creatinine [Mass/Vol] 0.87 mg/dL Normal 0.70-1.20 [facility] Comment on above: Performed By: #### L 500.2500 ####[facility] [address] [place], [address] ECRCL 42.10 ml/min Low 50-250 [facility] Comment on above: Performed By: #### L 500.2500 ####[facility] [address] [place], [address] GAP 7 Normal 5-15 [facility] Comment on above: Performed By: #### L 500.2500 ####[facility] [address] [place], [address] GFR/1.73 sq M.predicted among non-blacks MDRD (S/P/Bld) [Vol rate/Area] 66 mL/min/{1.73_m2} Normal >60 [facility] Comment on above: Result Comment: mL/m in/1.73m2 CKD-EPI Creatinine Equation (2020) Performed By: #### L 500.2500 ####[facility] [address] [place], [address] Glucose [Mass/Vol] 115 mg/dL High 70-99 [facility] Comment on above: Performed By: #### L 500.2500 ####[facility] [address] [place], [address] Potassium [Moles/Vol] 4.4 mmol/L Normal 3.3-5.1 [facility] Comment on above: Performed By: #### L 500.2500 ####[facility] [address] [place], [address] Sodium [Moles/Vol] 130 mmol/L Low 133-145 [facility] Comment on above: Performed By: #### L 500.2500 ####[facility] [address] [place], [address] Urea nitrogen [Mass/Vol] 16 mg/dL Normal 4-19 [facility] Comment on above: Performed By: #### L 500.2500 ####[facility] [address] [place], [address] CBC W/Diff, Automatedon 07- Absolute Lymph 1.28 X10 3/uL Normal 0.83-4.51 [facility] Comment on above: Performed By: #### L 100.0100 ####[facility] [address] [place], [address] Absolute Neut 1.8 X10 3/uL Low 2.0-7.7 [facility] Comment on above: Performed By: #### L 100.0100 ####[facility] [address] [place], [address] Basophils/100 WBC (Bld) 0.8 % Normal 0-1 [facility] Comment on above: Performed By: #### L 100.0100 ####[facility] [address] [place], [address] Eosinophils/100 WBC (Bld) 3.1 % Normal 0-5 [facility] Comment on above: Performed By: #### L 100.0100 ####[facility] [address] [place], [address] Erythrocyte distribution width (RBC) [Ratio] 12.5 % Normal 11.6-14.6 [facility] Comment on above: Performed By: #### L 100.0100 ####[facility] [address] [place], [address] Hematocrit (Bld) [Volume fraction] 35.7 % Low 37-47 [facility] Comment on above: Performed By: #### L 100.0100 ####[facility] [address] [place], [address] Hemoglobin (Bld) [Mass/Vol] 11.9 g/dL Low 12.0-15.0 [facility] Comment on above: Performed By: #### L 100.0100 ####[facility] [address] [place], [address] IG% 0.300 Normal 0.0-0.9 [facility] Comment on above: Result Comment: IG% - Immature Granulocytes (promyelocytes, myelocytes andmetamyelocytes) > 1% indicates that a LEFT SHIFT is Present. Performed By: #### L 100.0100 ####[facility] [address] [place], [address] Lymphocytes/100 WBC (Bld) 33.4 % Normal 19-41 [facility] Comment on above: Performed By: #### L 100.0100 ####[facility] [address] [place], [address] MCH (RBC) [Entitic mass] 32.6 pg High 27.0-32.0 [facility] Comment on above: Performed By: #### L 100.0100 ####[facility] [address] [place], [address] MCHC (RBC) [Mass/Vol] 33.3 g/dL Normal 32-36 [facility] Comment on above: Performed By: #### L 100.0100 ####[facility] [address] [place], [address] MCV (RBC) [Entitic vol] 97.8 fL Normal 81-99 [facility] Comment on above: Performed By: #### L 100.0100 ####[facility] [address] [place], [address] Monocytes/100 WBC (Bld) 14.9 % High 0-10 [facility] Comment on above: Performed By: #### L 100.0100 ####[facility] [address] [place], [address] Neutrophils/100 WBC (Bld) 47.5 % Normal 47-70 [facility] Comment on above: Performed By: #### L 100.0100 ####[facility] [address] [place], [address] Nucleated RBC (Bld) [#/Vol] 0 10*3/uL Normal 0-5 [facility] Comment on above: Performed By: #### L 100.0100 ####[facility] [address] [place], [address] Platelet mean volume (Bld) [Entitic vol] 9.5 fL Normal 6.2-12.0 [facility] Comment on above: Performed By: #### L 100.0100 ####[facility] [address] [place], [address] Platelets (Bld) [#/Vol] 250 10*3/uL Normal 150-450 [facility] Comment on above: Performed By: #### L 100.0100 ####[facility] [address] [place], [address] RBC (Bld) [#/Vol] 3.65 10*6/uL Low 4.2-5.4 [facility] Comment on above: Performed By: #### L 100.0100 ####[facility] [address] [place], [address] RDW SD 45.1 fl High 35.1-43.9 [facility] Comment on above: Performed By: #### L 100.0100 ####[facility] [address] [place], [address] WBC (Bld) [#/Vol] 3.8 10*3/uL Low 4.4-11.0 [facility] Comment on above: Performed By: #### L 100.0100 ####[facility] [address] [place], [address] Neurology Visit Reporton Neurology Visit Report Normal [facility] Basic Metabolic Profile (BMP )on 03-07-2025 BUN Normal 4-19 [facility] Comment on above: Result Comment: Canc elled via OM: Physician Authorized Performed By: #### L 500.2500 ####[facility] [address] [place], [address] BUN/CRE Normal 10-20 [facility] Comment on above: Result Comment: Canc elled via OM: Physician Authorized Performed By: #### L 500.2500 ####[facility] [address] [place], [address] Calcium Normal 7.6-11.0 [facility] Comment on above: Result Comment: Canc elled via OM: Physician Authorized Performed By: #### L 500.2500 ####[facility] [address] [place], [address] CL Normal 98-108 [facility] Comment on above: Result Comment: Canc elled via OM: Physician Authorized Performed By: #### L 500.2500 ####[facility] [address] [place], [address] CO2 Normal 21.0-32.0 [facility] Comment on above: Result Comment: Canc elled via OM: Physician Authorized Performed By: #### L 500.2500 ####[facility] [address] [place], [place], [address] CREAT,SERUM Normal 0.70-1.20 [facility] Comment on above: Result Comment: Canc elled via OM: Physician Authorized Performed By: #### L 500.2500 ####[facility] [address] [place], [address] eGFR Normal >60 [facility] Comment on above: Result Comment: Canc elled via OM: Physician Authorized Performed By: #### L 500.2500 ####[facility] [address] [place], [address] GAP Normal 5-15 [facility] Comment on above: Result Comment: Canc elled via OM: Physician Authorized Performed By: #### L 500.2500 ####[facility] [address] [place], [address] GLU Normal 70-99 [facility] Comment on above: Result Comment: Canc elled via OM: Physician Authorized Performed By: #### L 500.2500 ####[facility] [address] [place], [address] Potassium Normal 3.3-5.1 [facility] Comment on above: Result Comment: Canc elled via OM: Physician Authorized Performed By: #### L 500.2500 ####[facility] [address] [place], [address] Basic Metabolic Profile (BMP) Normal 133-145 [facility] Comment on above: Result Comment: Canc elled via OM: Physician Authorized Performed By: #### L 500.2500 ####[facility] [address] [place], [address] Basic Metabolic Profile (BMP )on 03-06-2025 BUN Normal 4-19 [facility] Comment on above: Result Comment: @PT CANCELED Performed By: #### L 500.2500 ####[facility] [address] [place], [address] BUN/CRE Normal 10-20 [facility] Comment on above: Result Comment: @PT CANCELED Performed By: #### L 500.2500 ####[facility] [address] [place], [address] Calcium Normal 7.6-11.0 [facility] Comment on above: Result Comment: @PT CANCELED Performed By: #### L 500.2500 ####[facility] [address] [place], [address] CL Normal 98-108 [facility] Comment on above: Result Comment: @PT CANCELED Performed By: #### L 500.2500 ####[facility] [address] [place], [address] CO2 Normal 21.0-32.0 [facility] Comment on above: Result Comment: @PT CANCELED Performed By: #### L 500.2500 ####[facility] [address] [place], [address] CREAT,SERUM Normal 0.70-1.20 [facility] Comment on above: Result Comment: @PT CANCELED Performed By: #### L 500.2500 ####[facility] [address] [place], [address] eGFR Normal >60 [facility] Comment on above: Result Comment: @PT CANCELED Performed By: #### L 500.2500 ####[facility] [address] [place], [address] GAP Normal 5-15 [facility] Comment on above: Result Comment: @PT CANCELED Performed By: #### L 500.2500 ####[facility] [address] [place], [address] GLU Normal 70-99 [facility] Comment on above: Result Comment: @PT CANCELED Performed By: #### L 500.2500 ####[facility] [address] [place], [address] Potassium Normal 3.3-5.1 [facility] Comment on above: Result Comment: @PT CANCELED Performed By: #### L 500.2500 ####[facility] [address] [place], [address] Basic Metabolic Profile (BMP) Normal 133-145 [facility] Comment on above: Result Comment: @PT CANCELED Performed By: #### L 500.2500 ####[facility] [address] [place], [address] Basic metabolic 2000 panelon 03-06-2025 Anion gap [Moles/Vol] 10 mmol/L Normal 8-15 [facility] Comment on above: Order Comment: Speci men Type: BLOOD SPECIMENOrdering Facility: [facility] Address: [address] [place] [address] Performed By: #### 2 4321-2 ####[facility] LABCLIA [id number] [facility] [address] [place] [id number] [place] Calcium [Mass/Vol] 9.4 mg/dL Normal 8.5-10.2 [facility] Comment on above: Order Comment: Speci men Type: BLOOD SPECIMENOrdering Facility: [facility] Address: [address] [place] [address] Performed By: #### 2 4321-2 ####[facility] LABCLIA [id number] [facility] [place] [address] [place] Chloride [Moles/Vol] 98 mmol/L Normal 98-107 [facility] Comment on above: Order Comment: Speci men Type: BLOOD SPECIMENOrdering Facility: [facility] Address: [address] [place] [address] Performed By: #### 2 4321-2 ####[facility] LABCLIA [id number] [facility] [place] [id number] [place] CO2 [Moles/Vol] 24 mmol/L Normal 22-30 [facility] Comment on above: Order Comment: Speci men Type: BLOOD SPECIMENOrdering Facility: [facility] Address: [address] [place] [address] Performed By: #### 2 4321-2 ####[facility] LABCLIA [id number] [facility] [place] [id number] [place] Creatinine [Mass/Vol] 0.79 mg/dL Normal 0.58-0.96 [facility] Comment on above: Order Comment: Speci men Type: BLOOD SPECIMENOrdering Facility: [facility] Address: [address] [place] [address] Performed By: #### 2 4321-2 ####[facility] LABCLIA [id number] [place] [address] [place] Creatinine and Glomerular filtration rate.predicted panel (S/P/Bld) 74 mL/min/1.73m??? Normal >=60 [facility] Comment on above: Order Comment: Adelaida agudelo Type: BLOOD SPECIMENOrdering Facility: [facility] Address: [address] [place] [address] Result Comment: Merna mated Glomerular Filtration Rate [...] actual GFR. Performed By: #### 2 4321-2 ####[facility] LABCLIA [id number] [place] [address] [place] Glucose [Mass/Vol] 80 mg/dL Normal 74-99 [facility] Comment on above: Order Comment: Adelaida agudelo Type: BLOOD SPECIMENOrdering Facility: [facility] Address: [address] [place] [address] Result Comment: The [place] [employer] (ADA) provides guidance for cutoff [...] Standards of Medical Care in Diabetes 2016, [place] [employer]. Diabetes Care. 2016.39(Suppl 1). Performed By: #### 2 4321-2 ####[facility] LABCLIA [id number] [place] [id number] [place] Potassium [Moles/Vol] 4.6 mmol/L Normal 3.7-5.1 [facility] Comment on above: Order Comment: Speci men Type: BLOOD SPECIMENOrdering Facility: [facility] Address: [address] [place] [address] Performed By: #### 2 4321-2 ####[facility] LABIA [id number] [place] [address] [place] Sodium [Moles/Vol] 132 mmol/L Low 136-144 [facility] Comment on above: Order Comment: Speci men Type: BLOOD SPECIMENOrdering Facility: [facility] Address: [address] [place] [address] Performed By: #### 2 4321-2 ####[facility] LABIA [id number] [place] [address] [place] Urea nitrogen [Mass/Vol] 18 mg/dL Normal 7-21 [facility] Comment on above: Order Comment: Speci men Type: BLOOD SPECIMENOrdering Facility: [facility] Address: [address] [place] [address] Performed By: #### 2 4321-2 ####[facility] LABIA [id number] [place] [id number] [place] CNOVon 03-06-2025 CNOV Office Visit (INTMWS) ROSANA MAKI ([id number]) 1940 F NFR Date Time Provider Department 03/06/25 10:40 AM ROCHELLE HACKETT INTMWS During your visit today, we recorded the following information about you: Temperature Pulse Respiration Blood pressure 96.3 degrees 64/minute 18/minute 154/88 Weight 54 kg Rochelle Hackett MD 03/06/2025 1:23 PM Signed Reason for Visit Follow up HPI Rosana Maki is a 85-year-old female, with a history of atrial fibrillation, mitral valve prolapse, orthostatic hypotension, osteopenia, breast cancer, migraines, irritable bowel syndrome, and 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 Rosana was admitted to [facility] on 02/23/2025 for intractable nausea and emesis. Her baseline sodium levels are typically 131-133 mEq/L, but during this episode, her sodium level dropped to 123 mEq/L. She reports feeling unwell for a few days prior to the hospitalization, suspecting a cold, and then began experiencing emesis, prompting her to take her to the emergency department. During her hospital stay, she was diagnosed with parainfluenza type 3, which she believes precipitated her symptoms. She also experienced a significant episode of atrial fibrillation during the night. Since discharge, she has been experiencing bronchitis with persistent coughing, which she attributes to the parainfluenza infection. She reports a decrease in energy levels but notes gradual improvement in strength and activity. She had a fever for several days during her illness. She was advised to take 4,000-5,000 mg of sodium daily, which has recently been reduced to a more normal amount. She is awaiting a follow-up appointment with her range master, Dr. Sahu. She has been focusing on increasing her protein intake as advised by a dietitian and is limiting her fluid intake to about 48 ounces per day to manage her sodium levels. She inquires about the continuation of Mucinex for her cough and requests a recommendation for a gentle laxative to address constipation following her hospital visit. She denies current fever and notes that her body temperature tends to run low. Social History Tobacco Use Smoking status: Never Smokeless tobacco: Never Vaping Use Vaping status: Never Used Substance Use Topics Alcohol use: Yes Alcohol/week: 1.0 standard drink of alcohol Types: 1 Glasses of Wine (5oz) per week Comment: 1 glass per week Drug use: No Past medical history, appointments, medications, allergies reviewed. Pertinent Lab/Diagnostic Studies are reviewed and discussed today Current Outpatient Medications: esomeprazole (NEXIUM) 40 mg capsule lidocaine (LIDODERM) 5 % famotidine (PEPCID) 20 mg tablet fludrocortisone (FLORINEF) 0.1 mg tablet midodrine (PROAMATINE) 2.5 mg tablet zoledronic acid (ZOMETA INTRAVENOUS) BENEFIBER, GUAR GUM, ORAL meclizine (ANTIVERT) 25 mg tab Magnesium Glycinate 120mg 3 at night Stress, blood sugar, thyroid/hormones/adr enals/sleep/energy/t oxins/muscles/consti pation/asthma metoprolol succinate ER (TOPROL XL) 25 mg 24 hr tablet APIXABAN (ELIQUIS ORAL) dofetilide (TIKOSYN) 250 mcg capsule acetaminophen (TYLENOL) 325 mg tablet calcium carbonate 600 mg-cholecalciferol 200 units 600 mg-5 mcg (200 unit) tab ergocalciferol(VITAM IN D 400 UNIT CAP) guaiFENesin (MUCINEX) 600 mg 12 hr tablet tiZANidine (ZANAFLEX) 2 mg tablet Health Maintenance Medicare Annual Wellness Visit Bone Density Screening Advance Directive Discussion Covid-19 Vaccine(2023- season)@ Review Of Systems Constitutional: (+) fatigue, (-) fever Respiratory: (+) cough, (+) sputum production, (-) thick sputum Gastrointestinal: (+) constipation Physical Exam BP 154/88 Pulse 64 Temp (!) 35.7 ?C (96.3 ?F) (Oral) Resp 18 Wt 54 kg (119 lb) SpO2 99% BMI 18.64 kg/m? GENERAL: NAD, alert and oriented. SKIN: Unremarkable, no rash or skin lesions. HEAD: Normocephalic. EYES: PERRLA, EOMI, conjunctiva clear. LUNGS: Clear to auscultation bilaterally, no wheezes/rhonchi/rale s. HEART: Regular rate and rhythm, no murmurs. No ectopy. EXTREMITIES: Normal, no deformities, no skin discoloration, no edema. NEURO: Awake, alert and oriented x3, cranial nerves II-XII grossly intact, normal gait, no involuntary motions. Labs: (02/23/2025) Serum sodium: 123 mmol/L - Lipid panel: Within normal limits - Serum sodium: 132 mmol/L - Parainfluenza type 3 test: Positive Assessment and Plan 1. 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 Normal [facility] Basic Metabolic Profile (BMP )on 03-04-2025 BUN Normal 4-19 [facility] Comment on above: Result Comment: Canc elled via OM: Order cancelled - Patient discharged Performed By: #### L 100.0100, L500.2500 ####[facility] [address] [facility] [address] BUN/CRE Normal 10-20 [facility] Comment on above: Result Comment: Canc elled via OM: Order cancelled - Patient discharged Performed By: #### L 100.0100, L500.2500 ####[facility] [address] [facility] [address] Calcium Normal 7.6-11.0 [facility] Comment on above: Result Comment: Canc elled via OM: Order cancelled - Patient discharged Performed By: #### L 100.0100, L500.2500 ####[facility] [address] [place], [address] CL Normal 98-108 [facility] Comment on above: Result Comment: Canc elled via OM: Order cancelled - Patient discharged Performed By: #### L 100.0100, L500.2500 ####[facility] [address] [facility] [address] CO2 Normal 21.0-32.0 [facility] Comment on above: Result Comment: Canc elled via OM: Order cancelled - Patient discharged Performed By: #### L 100.0100, L500.2500 ####[facility] [address] [place], [address] CREAT,SERUM Normal 0.70-1.20 [facility] Comment on above: Result Comment: Canc elled via OM: Order cancelled - Patient discharged Performed By: #### L 100.0100, L500.2500 ####[facility] [address] [place], [address] eGFR Normal >60 [facility] Comment on above: Result Comment: Canc elled via OM: Order cancelled - Patient discharged Performed By: #### L 100.0100, L500.2500 ####[facility] [address] [place], [address] GAP Normal 5-15 [facility] Comment on above: Result Comment: Canc elled via OM: Order cancelled - Patient discharged Performed By: #### L 100.0100, L500.2500 ####[facility] [address] [place], [address] GLU Normal 70-99 [facility] Comment on above: Result Comment: Canc elled via OM: Order cancelled - Patient discharged Performed By: #### L 100.0100, L500.2500 ####[facility] [address] [place], [address] Potassium Normal 3.3-5.1 [facility] Comment on above: Result Comment: Canc elled via OM: Order cancelled - Patient discharged Performed By: #### L 100.0100, L500.2500 ####[facility] [address] [place], [address] Basic Metabolic Profile (BMP) Normal 133-145 [facility] Comment on above: Result Comment: Canc elled via OM: Order cancelled - Patient discharged Performed By: #### L 100.0100, L500.2500 ####[facility] [address] [place], [address] CBC W/Diff, Automatedon 06-2 Absolute Neut Normal 2.0-7.7 [facility] Comment on above: Result Comment: Canc elled via OM: Order cancelled - Patient discharged Performed By: #### L 100.0100, L500.2500 ####[facility] [address] [place], [address] HCT Normal 37-47 [facility] Comment on above: Result Comment: Canc elled via OM: Order cancelled - Patient discharged Performed By: #### L 100.0100, L500.2500 ####[facility] [address] [place], [address] HGB Normal 12.0-15.0 [facility] Comment on above: Result Comment: Canc elled via OM: Order cancelled - Patient discharged Performed By: #### L 100.0100, L500.2500 ####[facility] [address] [place], [address] MCH Normal 27.0-32.0 [facility] Comment on above: Result Comment: Canc elled via OM: Order cancelled - Patient discharged Performed By: #### L 100.0100, L500.2500 ####[facility] [address] [place], [address] MCHC Normal 32-36 [facility] Comment on above: Result Comment: Canc elled via OM: Order cancelled - Patient discharged Performed By: #### L 100.0100, L500.2500 ####[facility] [address] [place], [address] MCV Normal 81-99 [facility] Comment on above: Result Comment: Canc elled via OM: Order cancelled - Patient discharged Performed By: #### L 100.0100, L500.2500 ####[facility] [address] [place], [address] NEUT% Normal 47-70 [facility] Comment on above: Result Comment: Canc elled via OM: Order cancelled - Patient discharged Performed By: #### L 100.0100, L500.2500 ####[facility] [address] [place], [address] PLT Normal 150-450 [facility] Comment on above: Result Comment: Canc elled via OM: Order cancelled - Patient discharged Performed By: #### L 100.0100, L500.2500 ####[facility] [address] [place], [address] RBC Normal 4.2-5.4 [facility] Comment on above: Result Comment: Canc elled via OM: Order cancelled - Patient discharged Performed By: #### L 100.0100, L500.2500 ####[facility] [address] [place], [address] RDW CV Normal 11.6-14.6 [facility] Comment on above: Result Comment: Canc elled via OM: Order cancelled - Patient discharged Performed By: #### L 100.0100, L500.2500 ####[facility] [address] [place], [address] RDW SD Normal 35.1-43.9 [facility] Comment on above: Result Comment: Canc elled via OM: Order cancelled - Patient discharged Performed By: #### L 100.0100, L500.2500 ####[facility] [address] [place], [address] WBC Normal 4.4-11.0 [facility] Comment on above: Result Comment: Canc elled via OM: Order cancelled - Patient discharged Performed By: #### L 100.0100, L500.2500 ####[facility] [address] [place], [address] Basic Metabolic Profile (BMP )on 03-03-2025 BUN Normal 4-19 [facility] Comment on above: Result Comment: Canc elled via OM: Order cancelled - Patient discharged Performed By: #### L 500.2500, L100.0100 ####[facility] [address] [place], [address] BUN/CRE Normal 10-20 [facility] Comment on above: Result Comment: Canc elled via OM: Order cancelled - Patient discharged Performed By: #### L 500.2500, L100.0100 ####[facility] [address] [place], [address] Calcium Normal 7.6-11.0 [facility] Comment on above: Result Comment: Canc elled via OM: Order cancelled - Patient discharged Performed By: #### L 500.2500, L100.0100 ####[facility] [address] [place], [address] CL Normal 98-108 [facility] Comment on above: Result Comment: Canc elled via OM: Order cancelled - Patient discharged Performed By: #### L 500.2500, L100.0100 ####[facility] [address] [place], [address] CO2 Normal 21.0-32.0 [facility] Comment on above: Result Comment: Canc elled via OM: Order cancelled - Patient discharged Performed By: #### L 500.2500, L100.0100 ####[facility] [address] [place], [address] CREAT,SERUM Normal 0.70-1.20 [facility] Comment on above: Result Comment: Canc elled via OM: Order cancelled - Patient discharged Performed By: #### L 500.2500, L100.0100 ####[facility] [address] [place], [address] eGFR Normal >60 [facility] Comment on above: Result Comment: Canc elled via OM: Order cancelled - Patient discharged Performed By: #### L 500.2500, L100.0100 ####[facility] [address] [place], [address] GAP Normal 5-15 [facility] Comment on above: Result Comment: Canc elled via OM: Order cancelled - Patient discharged Performed By: #### L 500.2500, L100.0100 ####[facility] [address] [place], [address] GLU Normal 70-99 [facility] Comment on above: Result Comment: Canc elled via OM: Order cancelled - Patient discharged Performed By: #### L 500.2500, L100.0100 ####[facility] [address] [place], [address] Potassium Normal 3.3-5.1 [facility] Comment on above: Result Comment: Canc elled via OM: Order cancelled - Patient discharged Performed By: #### L 500.2500, L100.0100 ####[facility] [address] [place], [address] Basic Metabolic Profile (BMP) Normal 133-145 [facility] Comment on above: Result Comment: Canc elled via OM: Order cancelled - Patient discharged Performed By: #### L 500.2500, L100.0100 ####[facility] [address] [place], [address] CBC W/Diff, Automatedon 06-2 0-2024 Absolute Neut Normal 2.0-7.7 [facility] Comment on above: Result Comment: Canc elled via OM: Order cancelled - Patient discharged Performed By: #### L 500.2500, L100.0100 ####[facility] [address] [place], [address] HCT Normal 37-47 [facility] Comment on above: Result Comment: Canc elled via OM: Order cancelled - Patient discharged Performed By: #### L 500.2500, L100.0100 ####[facility] [address] [place], [address] HGB Normal 12.0-15.0 [facility] Comment on above: Result Comment: Canc elled via OM: Order cancelled - Patient discharged Performed By: #### L 500.2500, L100.0100 ####[facility] [address] [place], [address] MCH Normal 27.0-32.0 [facility] Comment on above: Result Comment: Canc elled via OM: Order cancelled - Patient discharged Performed By: #### L 500.2500, L100.0100 ####[facility] [address] [place], [address] MCHC Normal 32-36 [facility] Comment on above: Result Comment: Canc elled via OM: Order cancelled - Patient discharged Performed By: #### L 500.2500, L100.0100 ####[facility] [address] [place], [address] MCV Normal 81-99 [facility] Comment on above: Result Comment: Canc elled via OM: Order cancelled - Patient discharged Performed By: #### L 500.2500, L100.0100 ####[facility] [address] [place], [address] NEUT% Normal 47-70 [facility] Comment on above: Result Comment: Canc elled via OM: Order cancelled - Patient discharged Performed By: #### L 500.2500, L100.0100 ####[facility] [address] [place], [address] PLT Normal 150-450 [facility] Comment on above: Result Comment: Canc elled via OM: Order cancelled - Patient discharged Performed By: #### L 500.2500, L100.0100 ####[facility] [address] [place], [address] RBC Normal 4.2-5.4 [facility] Comment on above: Result Comment: Canc elled via OM: Order cancelled - Patient discharged Performed By: #### L 500.2500, L100.0100 ####[facility] [address] [place], [address] RDW CV Normal 11.6-14.6 [facility] Comment on above: Result Comment: Canc elled via OM: Order cancelled - Patient discharged Performed By: #### L 500.2500, L100.0100 ####[facility] [address] [place], [address] RDW SD Normal 35.1-43.9 [facility] Comment on above: Result Comment: Canc elled via OM: Order cancelled - Patient discharged Performed By: #### L 500.2500, L100.0100 ####[facility] [address] [place], [address] WBC Normal 4.4-11.0 [facility] Comment on above: Result Comment: Canc elled via OM: Order cancelled - Patient discharged Performed By: #### L 500.2500, L100.0100 ####[facility] [address] [place], [address] Basic Metabolic Profile (BMP )on 03-02-2025 BUN Normal -19 [facility] Comment on above: Result Comment: Canc elled via OM: Order cancelled - Patient discharged Performed By: #### L 500.2500, L100.0100 ####[facility] [address] [place], [address] BUN/CRE Normal 10-20 [facility] Comment on above: Result Comment: Canc elled via OM: Order cancelled - Patient discharged Performed By: #### L 500.2500, L100.0100 ####[facility] [address] [place], [address] Calcium Normal 7.6-11.0 [facility] Comment on above: Result Comment: Canc elled via OM: Order cancelled - Patient discharged Performed By: #### L 500.2500, L100.0100 ####[facility] [address] [place], [address] CL Normal 98-108 [facility] Comment on above: Result Comment: Canc elled via OM: Order cancelled - Patient discharged Performed By: #### L 500.2500, L100.0100 ####[facility] [address] [place], [address] CO2 Normal 21.0-32.0 [facility] Comment on above: Result Comment: Canc elled via OM: Order cancelled - Patient discharged Performed By: #### L 500.2500, L100.0100 ####[facility] [address] [place], [address] CREAT,SERUM Normal 0.70-1.20 [facility] Comment on above: Result Comment: Canc elled via OM: Order cancelled - Patient discharged Performed By: #### L 500.2500, L100.0100 ####[facility] [address] [place], [address] eGFR Normal >60 [facility] Comment on above: Result Comment: Canc elled via OM: Order cancelled - Patient discharged Performed By: #### L 500.2500, L100.0100 ####[facility] [address] [place], [address] GAP Normal 5-15 [facility] Comment on above: Result Comment: Canc elled via OM: Order cancelled - Patient discharged Performed By: #### L 500.2500, L100.0100 ####[facility] [address] [place], [address] GLU Normal 70-99 [facility] Comment on above: Result Comment: Canc elled via OM: Order cancelled - Patient discharged Performed By: #### L 500.2500, L100.0100 ####[facility] [address] [place], [address] Potassium Normal 3.3-5.1 [facility] Comment on above: Result Comment: Canc elled via OM: Order cancelled - Patient discharged Performed By: #### L 500.2500, L100.0100 ####[facility] [address] [place], [address] Basic Metabolic Profile (BMP) Normal 133-145 [facility] Comment on above: Result Comment: Canc elled via OM: Order cancelled - Patient discharged Performed By: #### L 500.2500, L100.0100 ####[facility] [address] [place], [address] CBC W/Diff, Automatedon - Absolute Neut Normal 2.0-7.7 [facility] Comment on above: Result Comment: Canc elled via OM: Order cancelled - Patient discharged Performed By: #### L 500.2500, L100.0100 ####[facility] [address] [place], [address] HCT Normal 37-47 [facility] Comment on above: Result Comment: Canc elled via OM: Order cancelled - Patient discharged Performed By: #### L 500.2500, L100.0100 ####[facility] [address] [place], [address] HGB Normal 12.0-15.0 [facility] Comment on above: Result Comment: Canc elled via OM: Order cancelled - Patient discharged Performed By: #### L 500.2500, L100.0100 ####[facility] [address] [place], [address] MCH Normal 27.0-32.0 [facility] Comment on above: Result Comment: Canc elled via OM: Order cancelled - Patient discharged Performed By: #### L 500.2500, L100.0100 ####[facility] [address] [place], [address] MCHC Normal 32-36 [facility] Comment on above: Result Comment: Canc elled via OM: Order cancelled - Patient discharged Performed By: #### L 500.2500, L100.0100 ####[facility] [address] [place], [address] MCV Normal 81-99 [facility] Comment on above: Result Comment: Canc elled via OM: Order cancelled - Patient discharged Performed By: #### L 500.2500, L100.0100 ####[facility] [address] [place], [address] NEUT% Normal 47-70 [facility] Comment on above: Result Comment: Canc elled via OM: Order cancelled - Patient discharged Performed By: #### L 500.2500, L100.0100 ####[facility] [address] [place], [address] PLT Normal 150-450 [facility] Comment on above: Result Comment: Canc elled via OM: Order cancelled - Patient discharged Performed By: #### L 500.2500, L100.0100 ####[facility] [address] [place], [address] RBC Normal 4.2-5.4 [facility] Comment on above: Result Comment: Canc elled via OM: Order cancelled - Patient discharged Performed By: #### L 500.2500, L100.0100 ####[facility] [address] [place], [address] RDW CV Normal 11.6-14.6 [facility] Comment on above: Result Comment: Canc elled via OM: Order cancelled - Patient discharged Performed By: #### L 500.2500, L100.0100 ####[facility] [address] [place], [address] RDW SD Normal 35.1-43.9 [facility] Comment on above: Result Comment: Canc elled via OM: Order cancelled - Patient discharged Performed By: #### L 500.2500, L100.0100 ####[facility] [address] [place], [address] WBC Normal 4.4-11.0 [facility] Comment on above: Result Comment: Canc elled via OM: Order cancelled - Patient discharged Performed By: #### L 500.2500, L100.0100 ####[facility] [address] [place], [address] Basic Metabolic Profile (BMP )on 03-01-2025 BUN Normal 4-19 [facility] Comment on above: Result Comment: Canc elled via OM: Order cancelled - Patient discharged Performed By: #### L 500.2500, L100.0100 ####[facility] [address] [place], [address] BUN/CRE Normal 10-20 [facility] Comment on above: Result Comment: Canc elled via OM: Order cancelled - Patient discharged Performed By: #### L 500.2500, L100.0100 ####[facility] [address] [place], [address] Calcium Normal 7.6-11.0 [facility] Comment on above: Result Comment: Canc elled via OM: Order cancelled - Patient discharged Performed By: #### L 500.2500, L100.0100 ####[facility] [address] [place], [address] CL Normal 98-108 [facility] Comment on above: Result Comment: Canc elled via OM: Order cancelled - Patient discharged Performed By: #### L 500.2500, L100.0100 ####[facility] [address] [place], [address] CO2 Normal 21.0-32.0 [facility] Comment on above: Result Comment: Canc elled via OM: Order cancelled - Patient discharged Performed By: #### L 500.2500, L100.0100 ####[facility] [address] [place], [address] CREAT,SERUM Normal 0.70-1.20 [facility] Comment on above: Result Comment: Canc elled via OM: Order cancelled - Patient discharged Performed By: #### L 500.2500, L100.0100 ####[facility] [address] [place], [address] eGFR Normal >60 [facility] Comment on above: Result Comment: Canc elled via OM: Order cancelled - Patient discharged Performed By: #### L 500.2500, L100.0100 ####[facility] [address] [place], [address] GAP Normal 5-15 [facility] Comment on above: Result Comment: Canc elled via OM: Order cancelled - Patient discharged Performed By: #### L 500.2500, L100.0100 ####[facility] [address] [place], [address] GLU Normal 70-99 [facility] Comment on above: Result Comment: Canc elled via OM: Order cancelled - Patient discharged Performed By: #### L 500.2500, L100.0100 ####[facility] [address] [place], [address] Potassium Normal 3.3-5.1 [facility] Comment on above: Result Comment: Canc elled via OM: Order cancelled - Patient discharged Performed By: #### L 500.2500, L100.0100 ####[facility] [address] [place], [address] Basic Metabolic Profile (BMP) Normal 133-145 [facility] Comment on above: Result Comment: Canc elled via OM: Order cancelled - Patient discharged Performed By: #### L 500.2500, L100.0100 ####[facility] [address] [place], [address] CBC W/Diff, Automatedon - Absolute Neut Normal 2.0-7.7 [facility] Comment on above: Result Comment: Canc elled via OM: Order cancelled - Patient discharged Performed By: #### L 500.2500, L100.0100 ####[facility] [address] [place], [address] HCT Normal 37-47 [facility] Comment on above: Result Comment: Canc elled via OM: Order cancelled - Patient discharged Performed By: #### L 500.2500, L100.0100 ####[facility] [address] [place], [address] HGB Normal 12.0-15.0 [facility] Comment on above: Result Comment: Canc elled via OM: Order cancelled - Patient discharged Performed By: #### L 500.2500, L100.0100 ####[facility] [address] [place], [address] MCH Normal 27.0-32.0 [facility] Comment on above: Result Comment: Canc elled via OM: Order cancelled - Patient discharged Performed By: #### L 500.2500, L100.0100 ####[facility] [address] [place], [address] MCHC Normal 32-36 [facility] Comment on above: Result Comment: Canc elled via OM: Order cancelled - Patient discharged Performed By: #### L 500.2500, L100.0100 ####[facility] [address] [place], [address] MCV Normal 81-99 [facility] Comment on above: Result Comment: Canc elled via OM: Order cancelled - Patient discharged Performed By: #### L 500.2500, L100.0100 ####[facility] [address] [place], [address] NEUT% Normal 47-70 [facility] Comment on above: Result Comment: Canc elled via OM: Order cancelled - Patient discharged Performed By: #### L 500.2500, L100.0100 ####[facility] [address] [place], [address] PLT Normal 150-450 [facility] Comment on above: Result Comment: Canc elled via OM: Order cancelled - Patient discharged Performed By: #### L 500.2500, L100.0100 ####[facility] [address] [place], [address] RBC Normal 4.2-5.4 [facility] Comment on above: Result Comment: Canc elled via OM: Order cancelled - Patient discharged Performed By: #### L 500.2500, L100.0100 ####[facility] [address] [place], [address] RDW CV Normal 11.6-14.6 [facility] Comment on above: Result Comment: Canc elled via OM: Order cancelled - Patient discharged Performed By: #### L 500.2500, L100.0100 ####[facility] [address] [place], [address] RDW SD Normal 35.1-43.9 [facility] Comment on above: Result Comment: Canc elled via OM: Order cancelled - Patient discharged Performed By: #### L 500.2500, L100.0100 ####[facility] [address] [place], [address] WBC Normal 4.4-11.0 [facility] Comment on above: Result Comment: Canc elled via OM: Order cancelled - Patient discharged Performed By: #### L 500.2500, L100.0100 ####[facility] [address] [place], [address] Basic Metabolic Profile (BMP )on 02-28-2025 BUN Normal 4-19 [facility] Comment on above: Result Comment: Canc elled via OM: Order cancelled - Patient discharged Performed By: #### L 500.2500, L100.0100 ####[facility] [address] [place], [address] BUN/CRE Normal 10-20 [facility] Comment on above: Result Comment: Canc elled via OM: Order cancelled - Patient discharged Performed By: #### L 500.2500, L100.0100 ####[facility] [address] [place], [address] Calcium Normal 7.6-11.0 [facility] Comment on above: Result Comment: Canc elled via OM: Order cancelled - Patient discharged Performed By: #### L 500.2500, L100.0100 ####[facility] [address] [place], [address] CL Normal 98-108 [facility] Comment on above: Result Comment: Canc elled via OM: Order cancelled - Patient discharged Performed By: #### L 500.2500, L100.0100 ####[facility] [address] [place], [address] CO2 Normal 21.0-32.0 [facility] Comment on above: Result Comment: Canc elled via OM: Order cancelled - Patient discharged Performed By: #### L 500.2500, L100.0100 ####[facility] [address] [place], [address] CREAT,SERUM Normal 0.70-1.20 [facility] Comment on above: Result Comment: Canc elled via OM: Order cancelled - Patient discharged Performed By: #### L 500.2500, L100.0100 ####[facility] [address] [place], [address] eGFR Normal >60 [facility] Comment on above: Result Comment: Canc elled via OM: Order cancelled - Patient discharged Performed By: #### L 500.2500, L100.0100 ####[facility] [address] [place], [address] GAP Normal 5-15 [facility] Comment on above: Result Comment: Canc elled via OM: Order cancelled - Patient discharged Performed By: #### L 500.2500, L100.0100 ####[facility] [address] [place], [address] GLU Normal 70-99 [facility] Comment on above: Result Comment: Canc elled via OM: Order cancelled - Patient discharged Performed By: #### L 500.2500, L100.0100 ####[facility] [address] [place], [address] Potassium Normal 3.3-5.1 [facility] Comment on above: Result Comment: Canc elled via OM: Order cancelled - Patient discharged Performed By: #### L 500.2500, L100.0100 ####[facility] [address] [place], [address] Basic Metabolic Profile (BMP) Normal 133-145 [facility] Comment on above: Result Comment: Canc elled via OM: Order cancelled - Patient discharged Performed By: #### L 500.2500, L100.0100 ####[facility] [address] [place], [address] CBC W/Diff, Automatedon 06- Absolute Neut Normal 2.0-7.7 [facility] Comment on above: Result Comment: Canc elled via OM: Order cancelled - Patient discharged Performed By: #### L 500.2500, L100.0100 ####[facility] [address] [place], [address] HCT Normal 37-47 [facility] Comment on above: Result Comment: Canc elled via OM: Order cancelled - Patient discharged Performed By: #### L 500.2500, L100.0100 ####[facility] [address] [place], [address] HGB Normal 12.0-15.0 [facility] Comment on above: Result Comment: Canc elled via OM: Order cancelled - Patient discharged Performed By: #### L 500.2500, L100.0100 ####[facility] [address] [place], [address] MCH Normal 27.0-32.0 [facility] Comment on above: Result Comment: Canc elled via OM: Order cancelled - Patient discharged Performed By: #### L 500.2500, L100.0100 ####[facility] [address] [place], [address] MCHC Normal 32-36 [facility] Comment on above: Result Comment: Canc elled via OM: Order cancelled - Patient discharged Performed By: #### L 500.2500, L100.0100 ####[facility] [address] [place], [address] MCV Normal 81-99 [facility] Comment on above: Result Comment: Canc elled via OM: Order cancelled - Patient discharged Performed By: #### L 500.2500, L100.0100 ####[facility] [address] [place], [address] NEUT% Normal 47-70 [facility] Comment on above: Result Comment: Canc elled via OM: Order cancelled - Patient discharged Performed By: #### L 500.2500, L100.0100 ####[facility] [address] [place], [address] PLT Normal 150-450 [facility] Comment on above: Result Comment: Canc elled via OM: Order cancelled - Patient discharged Performed By: #### L 500.2500, L100.0100 ####[facility] [address] [place], [address] RBC Normal 4.2-5.4 [facility] Comment on above: Result Comment: Canc elled via OM: Order cancelled - Patient discharged Performed By: #### L 500.2500, L100.0100 ####[facility] [address] [place], [address] RDW CV Normal 11.6-14.6 [facility] Comment on above: Result Comment: Canc elled via OM: Order cancelled - Patient discharged Performed By: #### L 500.2500, L100.0100 ####[facility] [address] [place], [address] RDW SD Normal 35.1-43.9 [facility] Comment on above: Result Comment: Canc elled via OM: Order cancelled - Patient discharged Performed By: #### L 500.2500, L100.0100 ####[facility] [address] [place], [address] WBC Normal 4.4-11.0 [facility] Comment on above: Result Comment: Canc elled via OM: Order cancelled - Patient discharged Performed By: #### L 500.2500, L100.0100 ####[facility] [address] [place], [address] Basic Metabolic Profile (BMP )on 02-27-2025 BUN/CRE 27.2 RATIO High 10-20 [facility] Comment on above: Performed By: #### L 100.0100, L500.2500 ####[facility] [address] [place], [address] Calcium [Mass/Vol] 8.2 mg/dL Normal 7.6-11.0 [facility] Comment on above: Performed By: #### L 100.0100, L500.2500 ####[facility] [address] [place], [address] Chloride [Moles/Vol] 97 mmol/L Low 98-108 [facility] Comment on above: Performed By: #### L 100.0100, L500.2500 ####[facility] [address] [place], [address] CO2 [Moles/Vol] 23.3 mmol/L Normal 21.0-32.0 [facility] Comment on above: Performed By: #### L 100.0100, L500.2500 ####[facility] [address] [place], [address] Creatinine [Mass/Vol] 0.68 mg/dL Low 0.70-1.20 [facility] Comment on above: Performed By: #### L 100.0100, L500.2500 ####[facility] [address] [place], [address] ECRCL 45.76 ml/min Low 50-250 [facility] Comment on above: Performed By: #### L 100.0100, L500.2500 ####[facility] [address] [place], [address] GAP 9 Normal 5-15 [facility] Comment on above: Performed By: #### L 100.0100, L500.2500 ####[facility] [address] [place], [address] GFR/1.73 sq M.predicted among non-blacks MDRD (S/P/Bld) [Vol rate/Area] 86 mL/min/{1.73_m2} Normal >60 [facility] Comment on above: Result Comment: mL/m in/1.73m2 CKD-EPI Creatinine Equation (2020) Performed By: #### L 100.0100, L500.2500 ####[facility] [address] [place], [address] Glucose [Mass/Vol] 102 mg/dL High 70-99 [facility] Comment on above: Performed By: #### L 100.0100, L500.2500 ####[facility] [address] [place], [address] Potassium [Moles/Vol] 4.3 mmol/L Normal 3.3-5.1 [facility] Comment on above: Performed By: #### L 100.0100, L500.2500 ####[facility] [address] [place], [address] Sodium [Moles/Vol] 129 mmol/L Low 133-145 [facility] Comment on above: Performed By: #### L 100.0100, L500.2500 ####[facility] [address] [place], [address] Urea nitrogen [Mass/Vol] 19 mg/dL Normal 4-19 [facility] Comment on above: Performed By: #### L 100.0100, L500.2500 ####[facility] [address] [place], [address] CBC W/Diff, Automatedon 02-12 SMEAR COMMENT SCANNED Normal [facility] Comment on above: Performed By: #### L 100.0100, L500.2500 ####[facility] [address] [place], [address] Discharge Instructionon 02-12 Discharge Instruction Normal [facility] Basic Metabolic Profile (BMP )on 02-26-2025 BUN/CRE 17.3 RATIO Normal 10-20 [facility] Comment on above: Performed By: #### L 500.2500, L100.0100 ####[facility] [address] [place], [address] Calcium [Mass/Vol] 7.9 mg/dL Normal 7.6-11.0 [facility] Comment on above: Performed By: #### L 500.2500, L100.0100 ####[facility] [address] [place], [address] Chloride [Moles/Vol] 97 mmol/L Low 98-108 [facility] Comment on above: Performed By: #### L 500.2500, L100.0100 ####[facility] [address] [place], [address] CO2 [Moles/Vol] 22.5 mmol/L Normal 21.0-32.0 [facility] Comment on above: Performed By: #### L 500.2500, L100.0100 ####[facility] [address] [place], [address] Creatinine [Mass/Vol] 0.73 mg/dL Normal 0.70-1.20 [facility] Comment on above: Performed By: #### L 500.2500, L100.0100 ####[facility] [address] [place], [address] ECRCL 46.09 ml/min Low 50-250 [facility] Comment on above: Performed By: #### L 500.2500, L100.0100 ####[facility] [address] [place], [address] GAP 8 Normal 5-15 [facility] Comment on above: Performed By: #### L 500.2500, L100.0100 ####[facility] [address] [place], [address] GFR/1.73 sq M.predicted among non-blacks MDRD (S/P/Bld) [Vol rate/Area] 82 mL/min/{1.73_m2} Normal >60 [facility] Comment on above: Result Comment: mL/m in/1.73m2 CKD-EPI Creatinine Equation (2020) Performed By: #### L 500.2500, L100.0100 ####[facility] [address] [place], [address] Glucose [Mass/Vol] 114 mg/dL High 70-99 [facility] Comment on above: Performed By: #### L 500.2500, L100.0100 ####[facility] [address] [place], [address] Potassium [Moles/Vol] 3.7 mmol/L Normal 3.3-5.1 [facility] Comment on above: Performed By: #### L 500.2500, L100.0100 ####[facility] [address] [place], [address] Sodium [Moles/Vol] 128 mmol/L Low 133-145 [facility] Comment on above: Performed By: #### L 500.2500, L100.0100 ####[facility] [address] [place], [address] Urea nitrogen [Mass/Vol] 13 mg/dL Normal 4-19 [facility] Comment on above: Performed By: #### L 500.2500, L100.0100 ####[facility] [address] [place], [address] CBC W/Diff, Automatedon 06-1 -2024 Absolute Lymph 1.34 X10 3/uL Normal 0.83-4.51 [facility] Comment on above: Performed By: #### L 500.2500, L100.0100 ####[facility] [address] [place], [address] Absolute Neut 1.1 X10 3/uL Low 2.0-7.7 [facility] Comment on above: Performed By: #### L 500.2500, L100.0100 ####[facility] [address] [place], [address] Basophils/100 WBC (Bld) 0.6 % Normal 0-1 [facility] Comment on above: Performed By: #### L 500.2500, L100.0100 ####[facility] [address] [place], [address] Eosinophils/100 WBC (Bld) 1.6 % Normal 0-5 [facility] Comment on above: Performed By: #### L 500.2500, L100.0100 ####[facility] [address] [place], [address] Erythrocyte distribution width (RBC) [Ratio] 12.7 % Normal 11.6-14.6 [facility] Comment on above: Performed By: #### L 500.2500, L100.0100 ####[facility] [address] [place], [address] Hematocrit (Bld) [Volume fraction] 32.8 % Low 37-47 [facility] Comment on above: Performed By: #### L 500.2500, L100.0100 ####[facility] [address] [place], [address] Hemoglobin (Bld) [Mass/Vol] 11.9 g/dL Low 12.0-15.0 [facility] Comment on above: Performed By: #### L 500.2500, L100.0100 ####[facility] [address] [place], [address] IG% 0.300 Normal 0.0-0.9 [facility] Comment on above: Result Comment: IG% - Immature Granulocytes (promyelocytes, myelocytes andmetamyelocytes) > 1% indicates that a LEFT SHIFT is Present. Performed By: #### L 500.2500, L100.0100 ####[facility] [address] [place], [address] Lymphocytes/100 WBC (Bld) 43.2 % High 19-41 [facility] Comment on above: Performed By: #### L 500.2500, L100.0100 ####[facility] [address] [place], [address] MCH (RBC) [Entitic mass] 33.9 pg High 27.0-32.0 [facility] Comment on above: Performed By: #### L 500.2500, L100.0100 ####[facility] [address] [place], [address] MCHC (RBC) [Mass/Vol] 36.3 g/dL High 32-36 [facility] Comment on above: Performed By: #### L 500.2500, L100.0100 ####[facility] [address] [place], [address] MCV (RBC) [Entitic vol] 93.4 fL Normal 81-99 [facility] Comment on above: Performed By: #### L 500.2500, L100.0100 ####[facility] [address] [place], [address] Monocytes/100 WBC (Bld) 18.1 % High 0-10 [facility] Comment on above: Performed By: #### L 500.2500, L100.0100 ####[facility] [address] [place], [address] Neutrophils/100 WBC (Bld) 36.2 % Low 47-70 [facility] Comment on above: Performed By: #### L 500.2500, L100.0100 ####[facility] [address] [place], [address] Nucleated RBC (Bld) [#/Vol] 0 10*3/uL Normal 0-5 [facility] Comment on above: Performed By: #### L 500.2500, L100.0100 ####[facility] [address] [place], [address] Platelet mean volume (Bld) [Entitic vol] 9.6 fL Normal 6.2-12.0 [facility] Comment on above: Performed By: #### L 500.2500, L100.0100 ####[facility] [address] [place], [address] Platelets (Bld) [#/Vol] 176 10*3/uL Normal 150-450 [facility] Comment on above: Performed By: #### L 500.2500, L100.0100 ####[facility] [address] [place], [address] RBC (Bld) [#/Vol] 3.51 10*6/uL Low 4.2-5.4 [facility] Comment on above: Performed By: #### L 500.2500, L100.0100 ####[facility] [address] [place], [address] RDW SD 43.6 fl Normal 35.1-43.9 [facility] Comment on above: Performed By: #### L 500.2500, L100.0100 ####[facility] [address] [place], [address] WBC (Bld) [#/Vol] 3.1 10*3/uL Low 4.4-11.0 [facility] Comment on above: Performed By: #### L 500.2500, L100.0100 ####[facility] [address] [place], [address] 12 Lead EKGon 02-25-2025 12 Lead EKG Normal [facility] Basic Metabolic Profile (BMP )on 02-25-2025 BUN/CRE 15.2 RATIO Normal 10-20 [facility] Comment on above: Performed By: #### L 500.2500, L100.0100 ####[facility] [address] [place], [address] Calcium [Mass/Vol] 8.0 mg/dL Normal 7.6-11.0 [facility] Comment on above: Performed By: #### L 500.2500, L100.0100 ####[facility] [address] [place], [address] Chloride [Moles/Vol] 93 mmol/L Low 98-108 [facility] Comment on above: Performed By: #### L 500.2500, L100.0100 ####[facility] [address] [place], [address] CO2 [Moles/Vol] 20.7 mmol/L Low 21.0-32.0 [facility] Comment on above: Performed By: #### L 500.2500, L100.0100 ####[facility] [address] [place], [address] Creatinine [Mass/Vol] 0.64 mg/dL Low 0.70-1.20 [facility] Comment on above: Performed By: #### L 500.2500, L100.0100 ####[facility] [address] [place], [address] ECRCL 46.60 ml/min Low 50-250 [facility] Comment on above: Performed By: #### L 500.2500, L100.0100 ####[facility] [address] [place], [address] GAP 9 Normal 5-15 [facility] Comment on above: Performed By: #### L 500.2500, L100.0100 ####[facility] [address] [place], [address] GFR/1.73 sq M.predicted among non-blacks MDRD (S/P/Bld) [Vol rate/Area] 88 mL/min/{1.73_m2} Normal >60 [facility] Comment on above: Result Comment: mL/m in/1.73m2 CKD-EPI Creatinine Equation (2020) Performed By: #### L 500.2500, L100.0100 ####[facility] [address] [place], [address] Glucose [Mass/Vol] 99 mg/dL Normal 70-99 [facility] Comment on above: Performed By: #### L 500.2500, L100.0100 ####[facility] [address] [place], [address] Potassium [Moles/Vol] 4.3 mmol/L Normal 3.3-5.1 [facility] Comment on above: Performed By: #### L 500.2500, L100.0100 ####[facility] [address] [place], [address] Sodium [Moles/Vol] 123 mmol/L Low 133-145 [facility] Comment on above: Performed By: #### L 500.2500, L100.0100 ####[facility] [address] [place], [address] Urea nitrogen [Mass/Vol] 10 mg/dL Normal 4-19 [facility] Comment on above: Performed By: #### L 500.2500, L100.0100 ####[facility] [address] [place], [address] CBC W/Diff, Automatedon 06-09 17-2024 Absolute Lymph 0.93 X10 3/uL Normal 0.83-4.51 [facility] Comment on above: Performed By: #### L 500.2500, L100.0100 ####[facility] [address] [place], [address] Absolute Neut 1.6 X10 3/uL Low 2.0-7.7 [facility] Comment on above: Performed By: #### L 500.2500, L100.0100 ####[facility] [address] [place], [address] Basophils/100 WBC (Bld) 0.7 % Normal 0-1 [facility] Comment on above: Performed By: #### L 500.2500, L100.0100 ####[facility] [address] [place], [address] Eosinophils/100 WBC (Bld) 0.0 % Normal 0-5 [facility] Comment on above: Performed By: #### L 500.2500, L100.0100 ####[facility] [address] [place], [address] Erythrocyte distribution width (RBC) [Ratio] 12.6 % Normal 11.6-14.6 [facility] Comment on above: Performed By: #### L 500.2500, L100.0100 ####[facility] [address] [place], [address] Hematocrit (Bld) [Volume fraction] 34.1 % Low 37-47 [facility] Comment on above: Performed By: #### L 500.2500, L100.0100 ####[facility] [address] [place], [address] Hemoglobin (Bld) [Mass/Vol] 12.3 g/dL Normal 12.0-15.0 [facility] Comment on above: Performed By: #### L 500.2500, L100.0100 ####[facility] [address] [place], [address] IG% 0.300 Normal 0.0-0.9 [facility] Comment on above: Result Comment: IG% - Immature Granulocytes (promyelocytes, myelocytes andmetamyelocytes) > 1% indicates that a LEFT SHIFT is Present. Performed By: #### L 500.2500, L100.0100 ####[facility] [address] [place], [address] Lymphocytes/100 WBC (Bld) 30.3 % Normal 19-41 [facility] Comment on above: Performed By: #### L 500.2500, L100.0100 ####[facility] [address] [place], [address] MCH (RBC) [Entitic mass] 33.5 pg High 27.0-32.0 [facility] Comment on above: Performed By: #### L 500.2500, L100.0100 ####[facility] [address] [place], [address] MCHC (RBC) [Mass/Vol] 36.1 g/dL High 32-36 [facility] Comment on above: Performed By: #### L 500.2500, L100.0100 ####[facility] [address] [place], [address] MCV (RBC) [Entitic vol] 92.9 fL Normal 81-99 [facility] Comment on above: Performed By: #### L 500.2500, L100.0100 ####[facility] [address] [place], [address] Monocytes/100 WBC (Bld) 16.0 % High 0-10 [facility] Comment on above: Performed By: #### L 500.2500, L100.0100 ####[facility] [address] [place], [address] Neutrophils/100 WBC (Bld) 52.7 % Normal 47-70 [facility] Comment on above: Performed By: #### L 500.2500, L100.0100 ####[facility] [address] [place], [address] Nucleated RBC (Bld) [#/Vol] 0 10*3/uL Normal 0-5 [facility] Comment on above: Performed By: #### L 500.2500, L100.0100 ####[facility] [address] [place], [address] Platelet mean volume (Bld) [Entitic vol] 9.6 fL Normal 6.2-12.0 [facility] Comment on above: Performed By: #### L 500.2500, L100.0100 ####[facility] [address] [place], [address] Platelets (Bld) [#/Vol] 210 10*3/uL Normal 150-450 [facility] Comment on above: Performed By: #### L 500.2500, L100.0100 ####[facility] [address] [place], [address] RBC (Bld) [#/Vol] 3.67 10*6/uL Low 4.2-5.4 [facility] Comment on above: Performed By: #### L 500.2500, L100.0100 ####[facility] [address] [place], [address] RDW SD 43.1 fl Normal 35.1-43.9 [facility] Comment on above: Performed By: #### L 500.2500, L100.0100 ####[facility] [address] [place], [address] WBC (Bld) [#/Vol] 3.1 10*3/uL Low 4.4-11.0 [facility] Comment on above: Performed By: #### L 500.2500, L100.0100 ####[facility] [address] [place], [address] Consultation - Nephrologyon 02-25-2025 Consultation - Nephrology Normal [facility] CBC W/Diff, Automatedon 02-12 Absolute Lymph 1.52 X10 3/uL Normal 0.83-4.51 [facility] Comment on above: Performed By: #### L 500.4050, L100.0100, L501.2300, L501.5200, L501.9520 ####[facility] [address] [place], [address] Absolute Neut 1.6 X10 3/uL Low 2.0-7.7 [facility] Comment on above: Performed By: #### L 500.4050, L100.0100, L501.2300, L501.5200, L501.9520 ####[facility] [address] [place], [address] Basophils/100 WBC (Bld) 0.5 % Normal 0-1 [facility] Comment on above: Performed By: #### L 500.4050, L100.0100, L501.2300, L501.5200, L501.9520 ####[facility] [address] [place], [address] Eosinophils/100 WBC (Bld) 0.3 % Normal 0-5 [facility] Comment on above: Performed By: #### L 500.4050, L100.0100, L501.2300, L501.5200, L501.9520 ####[facility] [address] [place], [address] Erythrocyte distribution width (RBC) [Ratio] 12.6 % Normal 11.6-14.6 [facility] Comment on above: Performed By: #### L 500.4050, L100.0100, L501.2300, L501.5200, L501.9520 ####[facility] [address] [place], [address] Hematocrit (Bld) [Volume fraction] 31.4 % Low 37-47 [facility] Comment on above: Performed By: #### L 500.4050, L100.0100, L501.2300, L501.5200, L501.9520 ####[facility] [address] [place], [address] Hemoglobin (Bld) [Mass/Vol] 11.0 g/dL Low 12.0-15.0 [facility] Comment on above: Performed By: #### L 500.4050, L100.0100, L501.2300, L501.5200, L501.9520 ####[facility] [address] [place], [address] IG% 0.300 Normal 0.0-0.9 [facility] Comment on above: Result Comment: IG% - Immature Granulocytes (promyelocytes, myelocytes andmetamyelocytes) > 1% indicates that a LEFT SHIFT is Present. Performed By: #### L 500.4050, L100.0100, L501.2300, L501.5200, L501.9520 ####[facility] [address] [place], [address] Lymphocytes/100 WBC (Bld) 40.3 % Normal 19-41 [facility] Comment on above: Performed By: #### L 500.4050, L100.0100, L501.2300, L501.5200, L501.9520 ####[facility] [address] [place], [address] MCH (RBC) [Entitic mass] 33.2 pg High 27.0-32.0 [facility] Comment on above: Performed By: #### L 500.4050, L100.0100, L501.2300, L501.5200, L501.9520 ####[facility] [address] [place], [address] MCHC (RBC) [Mass/Vol] 35.0 g/dL Normal 32-36 [facility] Comment on above: Performed By: #### L 500.4050, L100.0100, L501.2300, L501.5200, L501.9520 ####[facility] [address] [place], [address] MCV (RBC) [Entitic vol] 94.9 fL Normal 81-99 [facility] Comment on above: Performed By: #### L 500.4050, L100.0100, L501.2300, L501.5200, L501.9520 ####[facility] [address] [place], [address] Monocytes/100 WBC (Bld) 16.2 % High 0-10 [facility] Comment on above: Performed By: #### L 500.4050, L100.0100, L501.2300, L501.5200, L501.9520 ####[facility] [address] [place], [address] Neutrophils/100 WBC (Bld) 42.4 % Low 47-70 [facility] Comment on above: Performed By: #### L 500.4050, L100.0100, L501.2300, L501.5200, L501.9520 ####[facility] [address] [place], [address] Nucleated RBC (Bld) [#/Vol] 0 10*3/uL Normal 0-5 [facility] Comment on above: Performed By: #### L 500.4050, L100.0100, L501.2300, L501.5200, L501.9520 ####[facility] [address] [place], [address] Platelet mean volume (Bld) [Entitic vol] 9.4 fL Normal 6.2-12.0 [facility] Comment on above: Performed By: #### L 500.4050, L100.0100, L501.2300, L501.5200, L501.9520 ####[facility] [address] [place], [address] Platelets (Bld) [#/Vol] 210 10*3/uL Normal 150-450 [facility] Comment on above: Performed By: #### L 500.4050, L100.0100, L501.2300, L501.5200, L501.9520 ####[facility] [address] [place], [address] RBC (Bld) [#/Vol] 3.31 10*6/uL Low 4.2-5.4 [facility] Comment on above: Performed By: #### L 500.4050, L100.0100, L501.2300, L501.5200, L501.9520 ####[facility] [address] [place], [address] RDW SD 43.8 fl Normal 35.1-43.9 [facility] Comment on above: Performed By: #### L 500.4050, L100.0100, L501.2300, L501.5200, L501.9520 ####[facility] [address] [place], [address] WBC (Bld) [#/Vol] 3.8 10*3/uL Low 4.4-11.0 [facility] Comment on above: Performed By: #### L 500.4050, L100.0100, L501.2300, L501.5200, L501.9520 ####[facility] [address] [place], [address] Comprehensive Metabolic [facility] 02-24-2025 Albumin [Mass/Vol] 3.2 g/dL Low 3.4-4.8 [facility] Comment on above: Performed By: #### L 500.4050, L100.0100, L501.2300, L501.5200, L501.9520 ####[facility] [address] [place], [address] Albumin/Globulin [Mass ratio] 1.4 {ratio} Normal 0.9-2.4 [facility] Comment on above: Performed By: #### L 500.4050, L100.0100, L501.2300, L501.5200, L501.9520 ####[facility] [address] [place], [address] ALK PHOS 84 U/L Normal 35-104 [facility] Comment on above: Performed By: #### L 500.4050, L100.0100, L501.2300, L501.5200, L501.9520 ####[facility] [address] [place], [address] ALT [Catalytic activity/Vol] 21 U/L Normal <=34 [facility] Comment on above: Performed By: #### L 500.4050, L100.0100, L501.2300, L501.5200, L501.9520 ####[facility] [address] [place], [address] AST [Catalytic activity/Vol] 30 U/L Normal <=31 [facility] Comment on above: Performed By: #### L 500.4050, L100.0100, L501.2300, L501.5200, L501.9520 ####[facility] [address] [place], [address] Bilirubin [Mass/Vol] 0.53 mg/dL Normal 0.00-1.30 [facility] Comment on above: Performed By: #### L 500.4050, L100.0100, L501.2300, L501.5200, L501.9520 ####[facility] [address] [place], [address] BUN/CRE 20.0 RATIO Normal 10-20 [facility] Comment on above: Performed By: #### L 500.4050, L100.0100, L501.2300, L501.5200, L501.9520 ####[facility] [address] [place], [address] Calcium [Mass/Vol] 7.9 mg/dL Normal 7.6-11.0 [facility] Comment on above: Performed By: #### L 500.4050, L100.0100, L501.2300, L501.5200, L501.9520 ####[facility] [address] [place], [address] Chloride [Moles/Vol] 94 mmol/L Low 98-108 [facility] Comment on above: Performed By: #### L 500.4050, L100.0100, L501.2300, L501.5200, L501.9520 ####[facility] [address] [place], [address] CO2 [Moles/Vol] 20.5 mmol/L Low 21.0-32.0 [facility] Comment on above: Performed By: #### L 500.4050, L100.0100, L501.2300, L501.5200, L501.9520 ####[facility] [address] [place], [address] Creatinine [Mass/Vol] 0.68 mg/dL Low 0.70-1.20 [facility] Comment on above: Performed By: #### L 500.4050, L100.0100, L501.2300, L501.5200, L501.9520 ####[facility] [address] [place], [address] ECRCL 45.59 ml/min Low 50-250 [facility] Comment on above: Performed By: #### L 500.4050, L100.0100, L501.2300, L501.5200, L501.9520 ####[facility] [address] [place], [address] GAP 11 Normal 5-15 [facility] Comment on above: Performed By: #### L 500.4050, L100.0100, L501.2300, L501.5200, L501.9520 ####[facility] [address] [place], [address] GFR/1.73 sq M.predicted among non-blacks MDRD (S/P/Bld) [Vol rate/Area] 86 mL/min/{1.73_m2} Normal >60 [facility] Comment on above: Result Comment: mL/m in/1.73m2 CKD-EPI Creatinine Equation (2020) Performed By: #### L 500.4050, L100.0100, L501.2300, L501.5200, L501.9520 ####[facility] [address] [place], [address] Globulin (S) [Mass/Vol] 2.3 g/dL Normal 2.2-4.2 [facility] Comment on above: Performed By: #### L 500.4050, L100.0100, L501.2300, L501.5200, L501.9520 ####[facility] [address] [place], [address] Glucose [Mass/Vol] 108 mg/dL High 70-99 [facility] Comment on above: Performed By: #### L 500.4050, L100.0100, L501.2300, L501.5200, L501.9520 ####[facility] [address] [place], [address] Potassium [Moles/Vol] 3.3 mmol/L Normal 3.3-5.1 [facility] Comment on above: Performed By: #### L 500.4050, L100.0100, L501.2300, L501.5200, L501.9520 ####[facility] [address] [place], [address] Sodium [Moles/Vol] 126 mmol/L Low 133-145 [facility] Comment on above: Performed By: #### L 500.4050, L100.0100, L501.2300, L501.5200, L501.9520 ####[facility] [address] [place], [address] T PROT 5.6 g/dL Low 5.9-8.4 [facility] Comment on above: Performed By: #### L 500.4050, L100.0100, L501.2300, L501.5200, L501.9520 ####[facility] [address] [place], [address] Urea nitrogen [Mass/Vol] 14 mg/dL Normal 4-19 [facility] Comment on above: Performed By: #### L 500.4050, L100.0100, L501.2300, L501.5200, L501.9520 ####[facility] [address] [place], [address] H AND P Exam - Hospitaliston 02-24-2025 H&P Exam - Hospitalist Normal [facility] Magnesiumon 02-24-2025 Magnesium [Mass/Vol] 1.9 mg/dL Normal 1.5-2.2 [facility] Comment on above: Performed By: #### L 500.4050, L100.0100, L501.2300, L501.5200, L501.9520 ####[facility] [address] [place], [address] Phosphoruson 02-24-2025 Phosphate [Mass/Vol] 2.9 mg/dL Normal 2.7-4.5 [facility] Comment on above: Performed By: #### L 500.4050, L100.0100, L501.2300, L501.5200, L501.9520 ####[facility] [address] [place], [address] RESPIRATORY PANEL MOLECULARo n 02-24-2025 RP PANEL Normal [facility] Comment on above: Performed By: #### M 100.638 ####[facility] [address] [place], [address] Thyroid Stim Hormone (TSH)on 02-24-2025 TSH 4.260 uIU/mL High 0.300-4.200 [facility] Comment on above: Performed By: #### L 500.4050, L100.0100, L501.2300, L501.5200, L501.9520 ####[facility] [address] [place], [address] Abdomen/Pelvis W IV Cont ONL Yon 02-23-2025 Abdomen/Pelvis W IV Cont ONLY Normal [facility] Basic Metabolic Profile (BMP )on 02-23-2025 BUN/CRE 20.7 RATIO High 10-20 [facility] Comment on above: Performed By: #### L 500.2500 ####[facility] [address] [place], [address] Calcium [Mass/Vol] 7.8 mg/dL Normal 7.6-11.0 [facility] Comment on above: Performed By: #### L 500.2500 ####[facility] [address] [place], [address] Chloride [Moles/Vol] 90 mmol/L Low 98-108 [facility] Comment on above: Performed By: #### L 500.2500 ####[facility] [facility] [address] [place], [address] CO2 [Moles/Vol] 21.3 mmol/L Normal 21.0-32.0 [facility] Comment on above: Performed By: #### L 500.2500 ####[facility] [address] [place], [address] Creatinine [Mass/Vol] 0.68 mg/dL Low 0.70-1.20 [facility] Comment on above: Performed By: #### L 500.2500 ####[facility] [address] [place], [address] ECRCL 47.36 ml/min Low 50-250 [facility] Comment on above: Performed By: #### L 500.2500 ####[facility] [address] [place], [address] GAP 13 Normal 5-15 [facility] Comment on above: Performed By: #### L 500.2500 ####[facility] [address] [place], [address] GFR/1.73 sq M.predicted among non-blacks MDRD (S/P/Bld) [Vol rate/Area] 86 mL/min/{1.73_m2} Normal >60 [facility] Comment on above: Result Comment: mL/m in/1.73m2 CKD-EPI Creatinine Equation (2020) Performed By: #### L 500.2500 ####[facility] [address] [place], [address] Glucose [Mass/Vol] 130 mg/dL High 70-99 [facility] Comment on above: Performed By: #### L 500.2500 ####[facility] [address] [place], [address] Potassium [Moles/Vol] 3.8 mmol/L Normal 3.3-5.1 [facility] Comment on above: Performed By: #### L 500.2500 ####[facility] [address] [place], [address] Sodium [Moles/Vol] 124 mmol/L Low 133-145 [facility] Comment on above: Performed By: #### L 500.2500 ####[facility] [address] [place], [address] Urea nitrogen [Mass/Vol] 14 mg/dL Normal 4-19 [facility] Comment on above: Performed By: #### L 500.2500 ####[facility] [address] [place], [address] CBC W/Diff, Automatedon -09 15-2024 Absolute Lymph 1.21 X10 3/uL Normal 0.83-4.51 [facility] Comment on above: Performed By: #### L 100.0100 ####[facility] [address] [place], [address] Absolute Neut 1.9 X10 3/uL Low 2.0-7.7 [facility] Comment on above: Performed By: #### L 100.0100 ####[facility] [address] [place], [address] Basophils/100 WBC (Bld) 0.6 % Normal 0-1 [facility] Comment on above: Performed By: #### L 100.0100 ####[facility] [address] [place], [address] Eosinophils/100 WBC (Bld) 0.0 % Normal 0-5 [facility] Comment on above: Performed By: #### L 100.0100 ####[facility] [address] [place], [address] Erythrocyte distribution width (RBC) [Ratio] 12.6 % Normal 11.6-14.6 [facility] Comment on above: Performed By: #### L 100.0100 ####[facility] [address] [place], [address] Hematocrit (Bld) [Volume fraction] 37.5 % Normal 37-47 [facility] Comment on above: Performed By: #### L 100.0100 ####[facility] [address] [place], [address] Hemoglobin (Bld) [Mass/Vol] 13.2 g/dL Normal 12.0-15.0 [facility] Comment on above: Performed By: #### L 100.0100 ####[facility] [address] [place], [address] IG% 0.300 Normal 0.0-0.9 [facility] Comment on above: Result Comment: IG% - Immature Granulocytes (promyelocytes, myelocytes andmetamyelocytes) > 1% indicates that a LEFT SHIFT is Present. Performed By: #### L 100.0100 ####[facility] [address] [place], [address] Lymphocytes/100 WBC (Bld) 35.5 % Normal 19-41 [facility] Comment on above: Performed By: #### L 100.0100 ####[facility] [address] [place], [address] MCH (RBC) [Entitic mass] 33.4 pg High 27.0-32.0 [facility] Comment on above: Performed By: #### L 100.0100 ####[facility] [address] [place], [address] MCHC (RBC) [Mass/Vol] 35.2 g/dL Normal 32-36 [facility] Comment on above: Performed By: #### L 100.0100 ####[facility] [address] [place], [address] MCV (RBC) [Entitic vol] 94.9 fL Normal 81-99 [facility] Comment on above: Performed By: #### L 100.0100 ####[facility] [address] [place], [address] Monocytes/100 WBC (Bld) 7.3 % Normal 0-10 [facility] Comment on above: Performed By: #### L 100.0100 ####[facility] [address] [place], [address] Neutrophils/100 WBC (Bld) 56.3 % Normal 47-70 [facility] Comment on above: Performed By: #### L 100.0100 ####[facility] [address] [place], [address] Nucleated RBC (Bld) [#/Vol] 0 10*3/uL Normal 0-5 [facility] Comment on above: Performed By: #### L 100.0100 ####[facility] [address] [place], [address] Platelet mean volume (Bld) [Entitic vol] 9.4 fL Normal 6.2-12.0 [facility] Comment on above: Performed By: #### L 100.0100 ####[facility] [address] [place], [address] Platelets (Bld) [#/Vol] 233 10*3/uL Normal 150-450 [facility] Comment on above: Performed By: #### L 100.0100 ####[facility] [address] [place], [address] RBC (Bld) [#/Vol] 3.95 10*6/uL Low 4.2-5.4 [facility] Comment on above: Performed By: #### L 100.0100 ####[facility] [address] [place], [address] RDW SD 44.3 fl High 35.1-43.9 [facility] Comment on above: Performed By: #### L 100.0100 ####[facility] [address] [place], [address] WBC (Bld) [#/Vol] 3.4 10*3/uL Low 4.4-11.0 [facility] Comment on above: Performed By: #### L 100.0100 ####[facility] [address] [place], [address] Emergency Department Summary on 02-23-2025 Emergency Department Summary Normal [facility] Sodium Levelon 02-23-2025 Sodium [Moles/Vol] 124 mmol/L Low 133-145 [facility] Comment on above: Performed By: #### L 501.5300 ####[facility] [address] [place], [address] Urinalysis, Completeon 02-23 EPI,SQUAMOUS 0-5 SEEN Normal 5-10 [facility] Comment on above: Order Comment: CLEAN CATCH Performed By: #### L 400.0001 ####[facility] [address] [place], [address] RBC 0-5 SEEN Normal 0-5 [facility] Comment on above: Order Comment: CLEAN CATCH Performed By: #### L 400.0001 ####[facility] [address] [place], [address] WBC 0-5 SEEN Normal 0-5 [facility] Comment on above: Order Comment: CLEAN CATCH Performed By: #### L 400.0001 ####[facility] [address] [place], [address] BACTERIA 0 SEEN Normal None Seen [facility] Comment on above: Order Comment: CLEAN CATCH Performed By: #### L 400.0001 ####[facility] [address] [place], [address] Mucus Ql (Urine sed) 0 SEEN Normal [facility] Comment on above: Order Comment: CLEAN CATCH Performed By: #### L 400.0001 ####[facility] [address] [place], [address] Cardiology Visit Reporton Cardiology Visit Report Normal [facility] 25(OH)D3 SerPl-mCncon 2024 25-hydroxyvitamin D3 [Mass/Vol] 49.4 ng/mL Normal 31.0-80.0 [facility] Comment on above: Order Comment: Speci men Type: BLOOD SPECIMENOrdering Facility: [facility] Address: [address] [place] [address] Result Comment: Clas sification of 25 [place] Vitamin D status: Deficiency/Insufficiency: < or = 30 ng/ml. Sufficiency/Optimal Levels: 31-80 ng/mL Toxicity: > 100 ng/mL. Test performed by chemiluminescent immunoassay. Performed By: #### 1 989-3 ####[facility] LABIA [id number] [place] [address] [place] CBC W Auto Differential pane l (Bld)on 02-14-2025 Basophils (Bld) [#/Vol] 0.05 10*3/uL Normal <0.11 [facility] Comment on above: Order Comment: Speci men Type: BLOOD SPECIMENOrdering Facility: [facility] Address: [address] [place] [address] Performed By: #### 5 7021-8 ####[facility] LABIA [id number] [place] [address] [place] Basophils/100 WBC (Bld) 1.3 % Normal [facility] Comment on above: Order Comment: Speci men Type: BLOOD SPECIMENOrdering Facility: [facility] Address: [address] [place] [address] Performed By: #### 5 7021-8 ####[facility] LABIA [id number] [place] [address] [place] Differential cell count method Nom (Bld) Auto Normal [facility] Comment on above: Order Comment: Speci men Type: BLOOD SPECIMENOrdering Facility: [facility] Address: [address] [place] [address] Performed By: #### 5 7021-8 ####[facility] LABIA [id number] [place] [address] [place] Eosinophils (Bld) [#/Vol] 0.15 10*3/uL Normal <0.46 [facility] Comment on above: Order Comment: Speci men Type: BLOOD SPECIMENOrdering Facility: [facility] Address: [address] [place] [address] Performed By: #### 5 7021-8 ####[facility] LABCLIA [id number] [address] [address] [place] Eosinophils/100 WBC (Bld) 3.8 % Normal [facility] Comment on above: Order Comment: Speci men Type: BLOOD SPECIMENOrdering Facility: [facility] Address: [address] [place] [address] Performed By: #### 5 7021-8 ####[facility] LABCLIA [id number] [place] [address] [place] Erythrocyte distribution width (RBC) [Ratio] 13.7 % Normal 11.5-15.0 [facility] Comment on above: Order Comment: Speci men Type: BLOOD SPECIMENOrdering Facility: [facility] Address: [address] [place] [address] Performed By: #### 5 7021-8 ####[facility] LABCLIA [id number] [place] [address] [place] Hematocrit (Bld) [Volume fraction] 35.2 % Low 36.0-46.0 [facility] Comment on above: Order Comment: Speci men Type: BLOOD SPECIMENOrdering Facility: [facility] Address: [address] [place] [address] Performed By: #### 5 7021-8 ####[facility] LABCLIA [id number] [address] [address] [place] Hemoglobin (Bld) [Mass/Vol] 11.7 g/dL Normal 11.5-15.5 [facility] Comment on above: Order Comment: Speci men Type: BLOOD SPECIMENOrdering Facility: [facility] Address: [address] [place] [address] Performed By: #### 5 7021-8 ####[facility] LABCLIA [id number] [address] [place] [address] [place] Immature granulocytes (Bld) [#/Vol] 10*3/uL Normal <0.10 [facility] Comment on above: Order Comment: Speci men Type: BLOOD SPECIMENOrdering Facility: [facility] Address: [address] [place] [address] Performed By: #### 5 7021-8 ####[facility] LABCLIA [id number] [facility] [address], [facility] [place] Immature granulocytes/100 WBC (Bld) 0.3 % Normal [facility] Comment on above: Order Comment: Speci men Type: BLOOD SPECIMENOrdering Facility: [facility] Address: [address] [place] [address] Performed By: #### 5 7021-8 ####[facility] LABCLIA [id number] [address], [place] [address] [place] Lymphocytes (Bld) [#/Vol] 1.81 10*3/uL Normal 1.00-4.0 0 [facility] Comment on above: Order Comment: Speci men Type: BLOOD SPECIMENOrdering Facility: [facility] Address: [address] [place] [address] Performed By: #### 5 7021-8 ####[facility] LABCLIA [id number] [address], [facility] [place] Lymphocytes/100 WBC (Bld) 45.4 % Normal [facility] Comment on above: Order Comment: Speci men Type: BLOOD SPECIMENOrdering Facility: [facility] Address: [address] [place] [address] Performed By: #### 5 7021-8 ####[facility] LABCLIA [id number] [address] [place] [address] [place] MCH (RBC) [Entitic mass] 33.0 pg Normal 26.0-34.0 [facility] Comment on above: Order Comment: Speci men Type: BLOOD SPECIMENOrdering Facility: [facility] Address: [address] [place] [address] Performed By: #### 5 7021-8 ####[facility] LABCLIA [id number] [place] [address] [place] MCHC (RBC) [Mass/Vol] 33.2 g/dL Normal 30.5-36.0 [facility] Comment on above: Order Comment: Speci men Type: BLOOD SPECIMENOrdering Facility: [facility] Address: [address] [place] [address] Performed By: #### 5 7021-8 ####[facility] LABIA [id number] [place] [address] [place] MCV (RBC) [Entitic vol] 99.2 fL Normal 80.0-100.0 [facility] Comment on above: Order Comment: Speci men Type: BLOOD SPECIMENOrdering Facility: [facility] Address: [address] [place] [address] Performed By: #### 5 7021-8 ####[facility] LABIA [id number] [place] [address] [place] Monocytes (Bld) [#/Vol] 0.52 10*3/uL Normal <0.87 [facility] Comment on above: Order Comment: Speci men Type: BLOOD SPECIMENOrdering Facility: [facility] Address: [address] [place] [address] Performed By: #### 5 7021-8 ####[facility] LABCLIA [id number] [place] [address] [place] Monocytes/100 WBC (Bld) 13.0 % Normal [facility] Comment on above: Order Comment: Speci men Type: BLOOD SPECIMENOrdering Facility: [facility] Address: [address] [place] [address] Performed By: #### 5 7021-8 ####[facility] LABCLIA [id number] [address] [place] [address] [place] Neutrophils (Bld) [#/Vol] 1.45 10*3/uL Normal 1.45-7.5 0 [facility] Comment on above: Order Comment: Speci men Type: BLOOD SPECIMENOrdering Facility: [facility] Address: [address] [place] [address] Performed By: #### 5 7021-8 ####[facility] LABCLIA [id number] [address], [place] [address] [place] Neutrophils/100 WBC (Bld) 36.2 % Normal [facility] Comment on above: Order Comment: Speci men Type: BLOOD SPECIMENOrdering Facility: [facility] Address: [address] [place] [address] Performed By: #### 5 7021-8 ####[facility] LABCLIA [id number] [place] [address] [place] Nucleated RBC (Bld) [#/Vol] 10*3/uL Normal <0.01 [facility] Comment on above: Order Comment: Speci men Type: BLOOD SPECIMENOrdering Facility: [facility] Address: [address] [place] [address] Performed By: #### 5 7021-8 ####[facility] LABCLIA [id number] [facility] [place] [place] [address] [place] Nucleated RBC/100 WBC (Bld) [Ratio] 0.0 /100 WBC Normal [facility] Comment on above: Order Comment: Speci men Type: BLOOD SPECIMENOrdering Facility: [facility] Address: [address] [place] [address] Performed By: #### 5 7021-8 ####[facility] LABCLIA [id number] [address], [facility] [place] Platelet mean volume (Bld) [Entitic vol] 10.1 fL Normal 9.0-12.7 [facility] Comment on above: Order Comment: Speci men Type: BLOOD SPECIMENOrdering Facility: [facility] Address: [address] [place] [address] Performed By: #### 5 7021-8 ####[facility] LABCLIA [id number] [facility] [id number] [place] [address] [place] Platelets (Bld) [#/Vol] 243 10*3/uL Normal 150-400 [facility] Comment on above: Order Comment: Speci men Type: BLOOD SPECIMENOrdering Facility: [facility] Address: [address] [place] [address] Performed By: #### 5 7021-8 ####[facility] LABCLIA [id number] [facility] [place] [address] [place] RBC (Bld) [#/Vol] 3.55 10*6/uL Low 3.90-5.20 [facility] Comment on above: Order Comment: Speci men Type: BLOOD SPECIMENOrdering Facility: [facility] Address: [address] [place] [address] Performed By: #### 5 7021-8 ####[facility] LABCLIA [id number] [facility] [place] [place] [address] [place] WBC (Bld) [#/Vol] 3.99 10*3/uL Normal 3.70-11.00 [facility] Comment on above: Order Comment: Speci men Type: BLOOD SPECIMENOrdering Facility: [facility] Address: [address] [place] [address] Performed By: #### 5 7021-8 ####[facility] LABCLIA [id number] [address] [address] [place] Comprehensive metabolic 2000 panelon 02-14-2025 Albumin [Mass/Vol] 3.8 g/dL Low 3.9-4.9 [facility] Comment on above: Order Comment: Speci men Type: BLOOD SPECIMENOrdering Facility: [facility] Address: [address] [place] [id number] Performed By: #### 2 4323-8, 09975-2 ####[facility] LABCLIA [id number] [address] [address] [place] ALP [Catalytic activity/Vol] 83 U/L Normal 34-123 [facility] Comment on above: Order Comment: Speci men Type: BLOOD SPECIMENOrdering Facility: [facility] Address: [address] [place], [place] [address] Performed By: #### 2 4323-8, 06831-3 ####[facility] LABCLIA [id number] [place] [address] [place] ALT [Catalytic activity/Vol] 19 U/L Normal 7-38 [facility] Comment on above: Order Comment: Speci men Type: BLOOD SPECIMENOrdering Facility: [facility] Address: [address] [place] [address] Performed By: #### 2 4323-8, 24154-4 ####[facility] LABCLIA [id number] [place] [address] [place] Anion gap [Moles/Vol] 10 mmol/L Normal 8-15 [facility] Comment on above: Order Comment: Speci men Type: BLOOD SPECIMENOrdering Facility: [facility] Address: [address] [place], [place] [address] Performed By: #### 2 4323-8, 97252-0 ####[facility] LABCLIA [id number] [place] [address] [place] AST [Catalytic activity/Vol] 25 U/L Normal 13-35 [facility] Comment on above: Order Comment: Speci men Type: BLOOD SPECIMENOrdering Facility: [facility] Address: [address] [place], [place] [address] Performed By: #### 2 4323-8, 06697-0 ####[facility] LABCLIA [id number] [address] [address] [place] Bilirubin [Mass/Vol] 0.6 mg/dL Normal 0.2-1.3 [facility] Comment on above: Order Comment: Speci men Type: BLOOD SPECIMENOrdering Facility: [facility] Address: [address] [place] [address] Performed By: #### 2 4323-8, 25889-0 ####[facility] LABCLIA [id number] [place] [address] [place] Calcium [Mass/Vol] 8.9 mg/dL Normal 8.5-10.2 [facility] Comment on above: Order Comment: Speci men Type: BLOOD SPECIMENOrdering Facility: [facility] Address: [address] [place] [address] Performed By: #### 2 4323-8, 39432-8 ####[facility] LABIA [id number] [place] [address] [place] Chloride [Moles/Vol] 96 mmol/L Low 98-107 [facility] Comment on above: Order Comment: Speci men Type: BLOOD SPECIMENOrdering Facility: [facility] Address: [address] [place] [address] Performed By: #### 2 4323-8, 72611-4 ####[facility] LABIA [id number] [place] [address] [place] CO2 [Moles/Vol] 26 mmol/L Normal 22-30 [facility] Comment on above: Order Comment: Speci men Type: BLOOD SPECIMENOrdering Facility: [facility] Address: [address] [place], [place] [address] Performed By: #### 2 4323-8, 64295-9 ####[facility] LABIA [id number] [place] [id number] [place] Creatinine [Mass/Vol] 0.98 mg/dL High 0.58-0.96 [facility] Comment on above: Order Comment: Adelaida agudelo Type: BLOOD SPECIMENOrdering Facility: [facility] Address: [address] [place] [address] Performed By: #### 2 4323-8, 99521-1 ####[facility] LABCLIA [id number] [place] [address] [place] Creatinine and Glomerular filtration rate.predicted panel (S/P/Bld) 57 mL/min/1.73m??? Low >=60 [facility] Comment on above: Order Comment: Adelaida agudelo Type: BLOOD SPECIMENOrdering Facility: [facility] Address: [address] [place] [address] Result Comment: Merna mated Glomerular Filtration Rate [...] actual GFR. Performed By: #### 2 4323-8, 65261-1 ####[facility] LABCLIA [id number] [place] [address] [place] Glucose [Mass/Vol] 89 mg/dL Normal 74-99 [facility] Comment on above: Order Comment: Adelaida agudelo Type: BLOOD SPECIMENOrdering Facility: [facility] Address: [address] [place] [address] Result Comment: The [place] [employer] (ADA) provides guidance for cutoff [...] Standards of Medical Care in Diabetes 2016, [place] [employer]. Diabetes Care. 2016.39(Suppl 1). Performed By: #### 2 4323-8, 79676-1 ####[facility] LABCLIA [id number] [address] [address] [place] Potassium [Moles/Vol] 4.6 mmol/L Normal 3.7-5.1 [facility] Comment on above: Order Comment: Speci men Type: BLOOD SPECIMENOrdering Facility: [facility] Address: [address] [place] [address] Performed By: #### 2 4323-8, 90177-8 ####[facility] LABCLIA [id number] [place] [address] [place] Protein [Mass/Vol] 6.3 g/dL Normal 6.3-8.0 [facility] Comment on above: Order Comment: Speci men Type: BLOOD SPECIMENOrdering Facility: [facility] Address: [address] [place] [id number] Performed By: #### 2 4323-8, ####[facility] LABIA [id number] [place] [id number] [place] Sodium [Moles/Vol] 132 mmol/L Low 136-144 [facility] Comment on above: Order Comment: Speci men Type: BLOOD SPECIMENOrdering Facility: [facility] Address: [address] [place] [id number] Performed By: #### 2 4323-8, 23519-8 ####[facility] LABCLIA [id number] [address] [address] [place] Urea nitrogen [Mass/Vol] 20 mg/dL Normal 7-21 [facility] Comment on above: Order Comment: Speci men Type: BLOOD SPECIMENOrdering Facility: [facility] Address: [address] [place] [id number] Performed By: #### 2 4323-8, 01998-7 ####[facility] LABCLIA [id number] [place] [address] [place] Lipid 1996 panelon 5 Cholesterol [Mass/Vol] 197 mg/dL Normal <200 [facility] Comment on above: Order Comment: Speci men Type: BLOOD SPECIMENOrdering Facility: [facility] Address: [address] [place] [address] Result Comment: <200 mg/dL, Desirable 200-239 mg/dL, Borderline high >239 mg/dL, High Performed By: #### 2 4323-8, 35586-8 ####[facility] LABIA [id number] [address] Cholesterol in HDL [Mass/Vol] 88 mg/dL Normal >39 [facility] Comment on above: Order Comment: Speci men Type: BLOOD SPECIMENOrdering Facility: [facility] Address: [address] [place] [address] Result Comment: 40-5 9 mg/dL, Acceptable >59 mg/dL, High: Negative risk factor for coronary heart disease <40 mg/dL, Low: Positive risk factor for coronary heart disease Performed By: #### 2 4323-8, 28509-5 ####[facility] LABIA [id number] [address] OF [facility] Cholesterol in LDL [Mass/Vol] 94 mg/dL Normal <100 [facility] Comment on above: Order Comment: Speci men Type: BLOOD SPECIMENOrdering Facility: [facility] Address: [address] [place] [address] Result Comment: <100 mg/dL, Optimal 100-129 mg/dL, Near optimal/above optimal 130-159 mg/dL, Borderline high 160-189 mg/dL, High >189 mg/dL, Very high Secondary prevention optimal LDL Cholesterol levels are recommended to be <70 mg/dL LDL cholesterol is calculated using the Armando-NIH equation. Performed By: #### 2 4323-8, ####[facility] LABCLIA [id number] [address] [address] [place] Cholesterol in LDL/Cholesterol in HDL [Mass ratio] 1.07 {ratio} Normal <2.54 [facility] Comment on above: Order Comment: Speci men Type: BLOOD SPECIMENOrdering Facility: [facility] Address: [address] [place] [address] Result Comment: Refe rence: 1. National Cholesterol Education Program ATP III Guideline At-A-Glance Quick Desk Reference: National Heart, Lung, and Blood [place]. National Institutes of Health. 2001: NIH Publication No. 01-3305. 2. An International Atherosclerosis Society position paper: global recommendations for the management of dyslipidemia: executive summary, Atherosclerosis. 2014: 232(2):410-413. Performed By: #### 2 4323-8, ####[facility] LABIA [id number] [place] [id number] [place] Cholesterol in VLDL [Mass/Vol] 13 mg/dL Normal <30 [facility] Comment on above: Order Comment: Speci men Type: BLOOD SPECIMENOrdering Facility: [facility] Address: [address] [place] [address] Performed By: #### 2 4323-8, ####[facility] LABIA [id number] [place] [id number] [place] Cholesterol non HDL [Mass/Vol] 109 mg/dL Normal <130 [facility] Comment on above: Order Comment: Speci men Type: BLOOD SPECIMENOrdering Facility: [facility] Address: [address] [place] [address] Result Comment: <130 mg/dL, Optimal 130-159 mg/dL, Near optimal/above optimal 160-189 mg/dL, Borderline high 190-219 mg/dL, High >219 mg/dL, Very high Secondary prevention optimal non HDL Cholesterol levels are recommended to be <100 mg/dL Performed By: #### 2 4323-8, ####[facility] LABCLIA [id number] [place] [address] [place] Cholesterol.total/Cholest baldomero in HDL [Mass ratio] 2.24 {ratio} Normal <5.10 [facility] Comment on above: Order Comment: Speci men Type: BLOOD SPECIMENOrdering Facility: [facility] Address: [address] [place] [address] Performed By: #### 2 4323-8, 05089-7 ####[facility] LABIA [id number] [address] [place] FASTING TIME 12 hrs Normal [facility] Comment on above: Order Comment: Speci men Type: BLOOD SPECIMENOrdering Facility: [facility] Address: [address] [place] [address] Performed By: #### 2 4323-8, 27808-0 ####[facility] [id number] [address] [place] Triglyceride [Mass/Vol] 83 mg/dL Normal <150 [facility] Comment on above: Order Comment: Speci men Type: BLOOD SPECIMENOrdering Facility: [facility] Address: [address] [place] [address] Result Comment: <150 mg/dL, Normal 150-199 mg/dL, Borderline high 200-499 mg/dL, High >499 mg/dL, Very high Performed By: #### 2 4323-8, 63518-4 ####[facility] LABIA [id number] [place] [address] [place] CNOVon 02-10-2025 CNOV Office Visit (INTMWS) ROSANA MAKI ([id number]) 1940 F NFR Date Time Provider Department 02/10/25 8:40 AM ROCHELLE HACKETT During your visit today, we [...] attributes to physical therapy at [facility] and increased physical activity. She has been more active, engaging in chair yoga at the [facility] and walking on her property. She also notes an improvement in her energy levels and attributes this to both physical activity and the seasonal change, as she experiences worsening symptoms of seasonal affective disorder during the darker months. Rosana has a history of insomnia and has had two appointments with a sleep physician at [facility]. 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 and plans to discuss her [...] 120mg 3 at night Stress, blood sugar, thyroid/hormones/adr enals/sleep/energy/t oxins/muscles/consti pation/asthma metoprolol succinate ER (TOPROL XL) 25 mg 24 hr tablet APIXABAN (ELIQUIS ORAL) dofetilide (TIKOSYN) 250 mcg capsule acetaminophen (TYLENOL) 325 mg tablet calcium carbonate 600 mg-cholecalciferol 200 units 600 mg-5 mcg (200 unit) tab ergocalciferol(VITAM IN D 400 UNIT CAP) tiZANidine (ZANAFLEX) 2 mg tablet Health Maintenance Bone Density Screening Advance Directive Discussion Covid-19 Vaccine( season)@ Review Of Systems Constitutional: (+) fatigue Head: (-) headache Ears/Nose/Mouth/Thro at: (+) rhinorrhea, (+) nasal congestion Cardiovascular: (-) chest pain Respiratory: (+) exertional dyspnea Gastrointestinal: (+) pruritus ani, (-) nausea, (-) vomiting, (-) heartburn Genitourinary: (+) nocturia Musculoskeletal: (+) back pain, (-) falls Neurological: (+) insomnia, (-) lightheadedness Physical Exam BP 160/71 Pulse 6 (more content not included)... Normal [facility] Spine Thoracic (Routine)on 02-07-2025 Spine Thoracic (Routine) Normal [facility] PT D/C Summary (1)on 025 PT D/C Summary (1) Normal [facility] Neurology Visit Reporton Neurology Visit Report Normal [facility] Anion gap in Serum or Plasma Ordered By: Eagle Enciso on 12-20-2024 Anion gap [Moles/Vol] 11 mmol/L 01-26 [facility] BUN/creatinine ratioOrdered By: Eagle Enciso on 12-20-2024 Urea nitrogen/Creatinine [Mass ratio] 19.7 mg/mg - [facility] Basic Metabolic Profile (BMP )on 12-20-2024 BUN/CRE 19.7 RATIO Normal 07-03 [facility] Comment on above: Performed By: #### L 500.2500 ####[facility] [address] [place], [address] Calcium [Mass/Vol] 9.5 mg/dL Normal 7.6-11.0 [facility] Comment on above: Performed By: #### L 500.2500 ####[facility] [address] [place], [address] Chloride [Moles/Vol] 94 mmol/L Low 98-108 [facility] Comment on above: Performed By: #### L 500.2500 ####[facility] [address] [place], [address] CO2 [Moles/Vol] 23.4 mmol/L Normal 21.0-32.0 [facility] Comment on above: Performed By: #### L 500.2500 ####[facility] [address] [place], [address] Creatinine [Mass/Vol] 1.21 mg/dL High 0.70-1.20 [facility] Comment on above: Performed By: #### L 500.2500 ####[facility] [address] [place], [address] GAP 11 Normal 5-15 [facility] Comment on above: Performed By: #### L 500.2500 ####[facility] [address] [place], [address] GFR/1.73 sq M.predicted among non-blacks MDRD (S/P/Bld) [Vol rate/Area] 45 mL/min/{1.73_m2} Low >60 [facility] Comment on above: Result Comment: mL/m in/1.73m2 CKD-EPI Creatinine Equation (2020) Performed By: #### L 500.2500 ####[facility] [address] [place], [address] Glucose [Mass/Vol] 119 mg/dL High 70-99 [facility] Comment on above: Performed By: #### L 500.2500 ####[facility] [address] [place], [address] Potassium [Moles/Vol] 4.6 mmol/L Normal 3.3-5.1 [facility] Comment on above: Result Comment: Hemo lysis present, Results??could be affected.?? Performed By: #### L 500.2500 ####[facility] [address] [place], [address] Sodium [Moles/Vol] 129 mmol/L Low 133-145 [facility] Comment on above: Performed By: #### L 500.2500 ####[facility] [address] [place], [address] Urea nitrogen [Mass/Vol] 24 mg/dL High 4-19 [facility] Comment on above: Performed By: #### L 500.2500 ####[facility] [address] [place], [address] Carbon dioxide, total [Moles /volume] in Central venous bloodOrdered By: Eagle Enciso on 12-20-2024 CO2 [Moles/Vol] 23.4 mmol/L 21.0-32.0 [facility] Chloride assayOrdered By: Jaleel Enciso on 12-20-2024 Chloride [Moles/Vol] 94 mmol/L Low 98-108 [facility] GFR/1.73 sq M.predicted pierce g non-blacks MDRD (S/P/Bld) [Vol rate/Area]Ordered By: Eagle Enciso on 12-20-2024 Estimated GFR (MDRD) Non-Af Amer 45 Low >60 [facility] Comment on above: mL/min/1.73m2 CKD-EP I Creatinine Equation (2020) Potassium (Unsp spec) [Mass/ Vol]Ordered By: Eagle Enciso on 12-20-2024 Potassium [Moles/Vol] 4.6 mmol/L 3.3-5.1 [facility] Comment on above: Hemolysis present, R esults could be affected. Serum creatinine measurement (mass/volume)Ordered By: Eagle Enciso on 12-20-2024 Creatinine [Mass/Vol] 1.21 mg/dL High 0.70-1.20 [facility] Serum glucose measurement (m ass/volume)Ordered By: Eagle Enciso on 12-20-2024 Glucose [Mass/Vol] 119 mg/dL High 70-99 [facility] Serum or plasma calcium glo urement (mass/volume)Ordered By: Eagle Enciso on 12-20-2024 Calcium [Mass/Vol] 9.5 mg/dL 7.6-11.0 [facility] Serum or plasma urea nitroge n measurement (mass/volume)Ordered By: Eagle Enciso on 12-20-2024 Urea nitrogen [Mass/Vol] 24 mg/dL High 4-19 [facility] Sodium levelOrdered By: Huy Enciso on 12-20-2024 Sodium [Moles/Vol] 129 mmol/L Low 133-145 [facility] Inital Evaluation (1) - PTon 11-15-2024 Inital Evaluation (1) - PT Normal [facility] CNOVon 11-08-2024 CNOV Office Visit (INTMWS) ROSANA MAKI ([id number]) 1940 F NFR Date Time Provider Department [...] helps her. 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 Normal [facility] 11-08-2024 [facility] Telephone (INTMWS) ROSANA MAKI ([id number]) 1940 F NFR Date Time Provider Department 11/08/24 ROCHELLE HACKETT INTMWS During your visit today, [...] 120mg 3 at night Stress, blood sugar, thyroid/hormones/adr enals/sleep/energy/t oxins/muscles/consti pation/asthma Work up to 3 capsules with meals [...] 1 tablet by mouth once daily. - ergocalciferol(VITAM IN D 400 UNIT CAP) Take 1,000 Units by mouth once daily. 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] Palpitations [R00.2] 02/23/2009 Osteoporosis [M81.0] 07/04/2009 03/13/2012 [...] of b*09/08/2017 SIADH (syndrome of inappropriate ADH production* 8 Chronic pain of right knee [M25.561, G89.29] 10/06/2018 Hospital discharge follow-up [Z09] 11/18/2019 11/12/2022 Mild cognitive disorder [F09] 11/27/2020 Protein-calorie malnutrition, unspecified sever*01/14/2023 Encounter Status:Closed by TER[facility] (INTMWS) ROSANA MAKI ([id number]) 1940 F NFR Date Time Provider Department 11/07/24 ROCHELLE HACKETT INTMWS During your visit today, we recorded the following information about you: Vida Urena 11/07/2024 2:35 PM Signed Patient calling in asking if her information and pain management referral can be faxed over to [facility]. Please review. Vida Urena November 07, 2024 [...] 120mg 3 at night Stress, blood sugar, thyroid/hormones/adr enals/sleep/energy/t oxins/muscles/consti pation/asthma Work up to 3 capsules with meals [...] 1 tablet by mouth once daily. - ergocalciferol(VITAM IN D 400 UNIT CAP) Take 1,000 Units by mouth once daily. Problem List As Of Date 11/07/2024 Noted Resolved Irritable Bowel Syndrome [K58.9] OSTEOPENIA [M89.9, M94.9] 07/04/2009 Esophageal reflux [K21.9] Other forms of migraine [346.8] 05/04/2007 Unspecified constipation [K59.00] Asymptomatic Postmenopausal Status (Age-Related* 10/28/2012 Osteoarth NOS-L/Leg [[id number]] Palpitations [R00.2] 02/23/2009 Osteoporosis [M81.0] 07/04/2009 03/13/2012 [...] of b*09/08/2017 SIADH (syndrome of inappropriate ADH production* 8 Chronic pain of right knee [M25.561, G89.29] 10/06/2018 Hospital discharge follow-up [Z09] 11/18/2019 11/12/2022 Mild cognitive disorder [F09] 11/27/2020 Protein-calorie malnutrition, unspecified sever*01/14/2023 Encounter Status:Closed by CRISTINA MUNSON on 11/07/24 [facility] Siobhan 11-03-2024 NIKON Telephone (INTMWS) ROSANA MAKI ([id number]) 1940 F NFR Date Time Provider Department 11/03/24 ROCHELLE HACKETT During your visit today, we recorded the following information about you: Ele Gill, RN 11/03/2024 4:35 PM Signed Pt checking [...] her pain. Please advise patient. Al Nichole APRN.CNP 11/04/2024 1:05 PM Signed Still waiting on results. We could try tramadol which is low dose dose controlled pain pill but may be too strong for her. Does she want to try this? Take care DALLIN Marmolejo Jane, MA 11/04/2024 1:29 PM Signed Patient willing try Tramadol, please send to [facility]. Al Nichole APRN.CNP 11/04/2024 2:26 PM Signed Prescription sent as requested. She is very sensitive to medication so I prescribed 1/2 a tablet to try. If she tolerates this and it isn't enough, she can try taking a whole tablet. Thank you Al Nichole APRN.ALMOND BLANCHER Allergies As of Date: 11/03/2024 Noted Allergy [...] Fully Assessed Reason for Visit: Patient Question [1477] Primary Visit Diagnosis:Fall, subsequent encounter [W19.XXXD] Other [...] 120mg 3 at night Stress, blood sugar, thyroid/hormones/adr enals/sleep/energy/t oxins/muscles/consti pation/asthma Work up to 3 capsules with meals [...] 1 tablet by mouth once daily. - ergocalciferol(VITAM IN D 400 UNIT CAP) Take 1,000 Units by mouth once daily. Problem List As Of Date 11/03/2024 Noted Resolved Irritable Bowel Syndrome [K58.9] OSTEOPENIA [M89.9, M94.9] 07/04/2009 Esophageal reflux [K21.9] Other forms of migraine [346.8] 05/04/2007 Unspecified constipation [K59.00] Asymptomatic Postmenopausal Status (Age-Related* 10/28/2012 Osteoarth NOS-L/Leg [ZJL3232] Palpitations [R00.2] 02/23/2009 Osteoporosis [M81.0] 07/04/2009 03/13/2012 [...] in partia (more content not included)... Normal [facility] Bacteria Ur Culton 5 Bacteria identified Cx Nom (U) ORGANISM ID: 1 >=100,000 CFU/ml Escherichia coli ORGANISM ID: 1 (ESCHERICHIA COLI) ANTIBIOTIC INTERPRETATION AURA STATUS REFERENCE RANGE Ampicillin R >=32 F Susceptible <=8 , [...] , Intermediate >32 , Resistant >64 Abnormal [facility] Comment on above: Performed By: #### 6 30-4 ####[facility] LABCLIA [id number] [place] [address] [place] Basic metabolic 2000 panelon 11-02-2024 Anion gap [Moles/Vol] 7 mmol/L Low 8-15 [facility] Comment on above: Order Comment: Speci men Type: BLOOD SPECIMENOrdering Facility: [facility] Address: [address] [place] [address] Performed By: #### 2 4321-2 ####[facility] LABCLIA [id number] [place] [address] [place] Calcium [Mass/Vol] 8.5 mg/dL Normal 8.5-10.2 [facility] Comment on above: Order Comment: Speci men Type: BLOOD SPECIMENOrdering Facility: [facility] Address: [address] [place] [address] Performed By: #### 2 4321-2 ####[facility] LABCLIA [id number] [place] [address] [place] Chloride [Moles/Vol] 94 mmol/L Low 98-107 [facility] Comment on above: Order Comment: Speci men Type: BLOOD SPECIMENOrdering Facility: [facility] Address: [address] [place] [address] Performed By: #### 2 4321-2 ####[facility] LABCLIA [id number] [place] [address] [place] CO2 [Moles/Vol] 29 mmol/L Normal 22-30 [facility] Comment on above: Order Comment: Speci men Type: BLOOD SPECIMENOrdering Facility: [facility] Address: [address] [place] [address] Performed By: #### 2 4321-2 ####[facility] LABCLIA [id number] [place] [address] [place] Creatinine [Mass/Vol] 0.80 mg/dL Normal 0.58-0.96 [facility] Comment on above: Order Comment: Speci men Type: BLOOD SPECIMENOrdering Facility: [facility] Address: [address] [place] [address] Performed By: #### 2 4321-2 ####[facility] LABCLIA [id number] [place] [address] [place] Creatinine and Glomerular filtration rate.predicted panel (S/P/Bld) 74 mL/min/1.73m??? Normal >=60 [facility] Comment on above: Order Comment: Adelaida agudelo Type: BLOOD SPECIMENOrdering Facility: [facility] Address: [address] [place] [address] Result Comment: Merna mated Glomerular Filtration Rate [...] actual GFR. Performed By: #### 2 4321-2 ####[facility] LABIA [id number] [place] [address] [place] Glucose [Mass/Vol] 88 mg/dL Normal 74-99 [facility] Comment on above: Order Comment: Adelaida agudelo Type: BLOOD SPECIMENOrdering Facility: [facility] Address: [address] [place] [address] Result Comment: The [place] Diabetes Association (ADA) provides guidance for cutoff [...] Standards of Medical Care in Diabetes 2016, [place] [employer]. Diabetes Care. 2016.39(Suppl 1). Performed By: #### 2 4321-2 ####[facility] LABIA [id number] [place] [address] [place] Potassium [Moles/Vol] 3.8 mmol/L Normal 3.7-5.1 [facility] Comment on above: Order Comment: Adelaida agudelo Type: BLOOD SPECIMENOrdering Facility: [facility] Address: [address] [address] Performed By: #### 2 4321-2 ####[facility] LABCLIA [id number] [place] [id number] [place] Sodium [Moles/Vol] 130 mmol/L Low 136-144 [facility] Comment on above: Order Comment: Speci men Type: BLOOD SPECIMENOrdering Facility: [facility] Address: [address] [place] [address] Performed By: #### 2 4321-2 ####[facility] LABCLIA [id number] [place] [address] [place] Urea nitrogen [Mass/Vol] 17 mg/dL Normal 7-21 [facility] Comment on above: Order Comment: Speci men Type: BLOOD SPECIMENOrdering Facility: [facility] Address: [address] [place] [address] Performed By: #### 2 4321-2 ####[facility] LABCLIA [id number] [address] [place] CNOVon 11-02-2024 CNOV Office Visit (INTMWS) ROSANA MAKI ([id number]) 1940 F NFR Date Time Provider Department 11/02/24 12:00 PM AL NICHOLE INTMWS During your visit today, we recorded the following information about you: Pulse Respiration Blood pressure Weight 60/minute 16/minute 128/70 54.4 kg Al Nichole APRN.ALMOND BLANCHER 11/02/2024 3:40 PM Signed CC: Patient presents with: Recheck: [facility] ER follow up, fall back pain HPI Rosanachivo Maki is a 84 year old female who presents today for ER follow-up. Facility: [facility] ER Date of visit: 10/30/24 Reason for [...] region and thigh 04/27/2014 Recurrent UTI SOLAR LENGINES////DYSCHROM IA OTHER 04/20/2008 Tachycardia tachycardia, atrial flutter Unspecified constipation Vitamin D deficiency PAST SURGICAL HISTORY Procedure Laterality Date CATHETER, ABLATION 08/19/2013 for afib COLONOSCOPY FLX DX W/COLLJ SPEC WHEN PFRMD 07/23/2004 repeat due 2013 COLONOSCOPY FLX DX W/COLLJ SPEC WHEN PFRMD 06/01/2014 Colonoscopy COLONOSCOPY SCREENING 2013 COLONOSCOPY SCREENING 2018 DILATION AND CURETTAGE DXAND/THER NONOBSTETRIC 1989 EGD TRANSORAL BIOPSY SINGLE/MULTIPLE EGD TRANSORAL BIOPSY SINGLE/MULTIPLE 08/01/2010 ESOPHAGOGASTRODUODEN OSCOPY TRANSORAL DIAGNOSTIC 06/01/2014 EGD NIPPLE EXPLORATION 09/27/2009 [...] taking differentl (more content not included)... Normal [facility] complete panel (U )on 11-02-2024 BACTERIA UL >9821 High Negative [facility] Comment on above: Order Comment: Speci men Type: URINE SPECIMENOrdering Facility: [facility] Address: [address] [place] [address] Performed By: #### 2 4356-8 ####[facility] LABCLIA [id number] [place] [address] [place] Bilirubin Ql (U) Negative Normal Negative [facility] Comment on above: Order Comment: Speci men Type: URINE SPECIMENOrdering Facility: [facility] Address: [address] [place] [address] Performed By: #### 2 4356-8 ####[facility] LABCLIA [id number] [place] [address] [place] Clarity (Unsp spec) Cloudy Abnormal Clear [facility] Comment on above: Order Comment: Speci men Type: URINE SPECIMENOrdering Facility: [facility] Address: [address] [place] [address] Performed By: #### 2 4356-8 ####[facility] LABCLIA [id number] [place] [address] [place] Color (U) Dark Yellow Abnormal Yellow [facility] Comment on above: Order Comment: Speci men Type: URINE SPECIMENOrdering Facility: [facility] Address: [address] [place] [address] Performed By: #### 2 4356-8 ####[facility] LABCLIA [id number] [place] [address] [place] Epithelial cells LM.HPF (Urine sed) [#/Area] Few Normal [facility] Comment on above: Order Comment: Speci men Type: URINE SPECIMENOrdering Facility: [facility] Address: [address] [place] [address] Result Comment: Few Performed By: #### 2 4356-8 ####[facility] LABCLIA [id number] [place] [address] [place] Glucose Test strip (U) [Mass/Vol] Negative Normal Negative [facility] Comment on above: Order Comment: Speci men Type: URINE SPECIMENOrdering Facility: [facility] Address: [address] [place] [address] Performed By: #### 2 4356-8 ####[facility] LABCLIA [id number] [place] [address] [place] Hemoglobin Ql (U) 2+ Abnormal Negative [facility] Comment on above: Order Comment: Speci men Type: URINE SPECIMENOrdering Facility: [facility] Address: [address] [place] [address] Performed By: #### 2 4356-8 ####[facility] LABCLIA [id number] [place] [address] [place] Hyaline casts (Urine sed) [#/Area] 0 /[LPF] Normal 0 /LPF [facility] Comment on above: Order Comment: Speci men Type: URINE SPECIMENOrdering Facility: [facility] Address: [address] [place] [address] Performed By: #### 2 4356-8 ####[facility] LABCLIA [id number] [place] [address] [place] Ketones Ql (U) Trace Abnormal Negative [facility] Comment on above: Order Comment: Speci men Type: URINE SPECIMENOrdering Facility: [facility] Address: [address] [place] [address] Performed By: #### 2 4356-8 ####[facility] LABCLIA [id number] [place] [address] [place] Leukocyte esterase Test strip Ql (U) 2+ Abnormal Negative [facility] Comment on above: Order Comment: Speci men Type: URINE SPECIMENOrdering Facility: [facility] Address: [address] [place] [address] Performed By: #### 2 4356-8 ####[facility] LABIA [id number] [place] [address] [place] Nitrite Ql (U) Positive Abnormal Negative [facility] Comment on above: Order Comment: Speci men Type: URINE SPECIMENOrdering Facility: [facility] Address: [address] [place] [address] Performed By: #### 2 4356-8 ####[facility] LABIA [id number] [place] [address] [place] pH (U) 5.5 [pH] Normal <8.5 [facility] Comment on above: Order Comment: Speci men Type: URINE SPECIMENOrdering Facility: [facility] Address: [address] [place] [address] Performed By: #### 2 4356-8 ####[facility] LABIA [id number] [place] [address] [place] Protein (U) [Mass/Vol] 2+ Abnormal Negative [facility] Comment on above: Order Comment: Speci men Type: URINE SPECIMENOrdering Facility: [facility] Address: [address] [place] [address] Performed By: #### 2 4356-8 ####[facility] LABIA [id number] [place] [address] [place] RBC LM.HPF (Urine sed) [#/Area] /[HPF] Abnormal 0-2 /HPF [facility] Comment on above: Order Comment: Speci men Type: URINE SPECIMENOrdering Facility: [facility] Address: [address] [place] [address] Performed By: #### 2 4356-8 ####[facility] LABIA [id number] [place] [address] [place] Specific gravity (U) [Rel density] 1.029 Normal 1.005-1.030 [facility] Comment on above: Order Comment: Speci men Type: URINE SPECIMENOrdering Facility: [facility] Address: [address] [place] [address] Performed By: #### 2 4356-8 ####[facility] LABIA [id number] [place] [address] [place] Urobilinogen Ql (U) 0.2 EU/dL Normal 0.2-1.0 EU/dL [facility] Comment on above: Order Comment: Speci men Type: URINE SPECIMENOrdering Facility: [facility] Address: [address] [place] [address] Performed By: #### 2 4356-8 ####[facility] LABIA [id number] [place] [address] [place] WBC LM.HPF (Urine sed) [#/Area] /[HPF] Abnormal 0-5 /HPF [facility] Comment on above: Order Comment: Speci men Type: URINE SPECIMENOrdering Facility: [facility] Address: [address] [place] [address] Performed By: #### 2 4356-8 ####[facility] LABIA [id number] [place] [address] [place] XR LUMBAR 3V AP/LAT/L5-S1on 11-02-2024 XR LUMBAR 3V AP/LAT/L5-S1 * * *Final Rep ort* * * DATE OF EXAM: Nov 02 [...] L1 compression deformity 3. Mild degenerative changes Business Analyst Intern: [facility]Du Transcribe Date/Time: Nov 05 2024 11:05A Dictated by : BRIANDA OROPEZA MD This examination was interpreted and the report reviewed and electronically signed by: BRIANDA OROPEZA MD on Nov 05 2024 11:08AM EST [id number] CN Normal [facility] XR THORACIC 3V AP/LAT/SWIMME RSon 11-02-2024 [...] L1 compression deformity 3. Mild degenerative changes Business Analyst Intern: BO Transcribe Date/Time: Nov 05 2024 11:05A Dictated by : BRIANDA OROPEZA MD This examination was interpreted and the report reviewed and electronically signed by: BRIANDA OROPEZA MD on Nov 05 2024 11:08AM EST [id number] CN Normal [facility] Absolute neutrophil countOrd ered By: Tejinder Mora on 10-30-2024 Neutrophils (Bld) [#/Vol] 2.9 10*3/uL 2.0-7.7 [facility] Albumin to globulin ratioOrd ered By: Tejinder Mora on 10-30-2024 Albumin/Globulin [Mass ratio] 0.9 {ratio} 0.9-2.4 [facility] Basophil percentageOrdered B y: Tejinder Mora on 10-30-2024 Basophils/100 WBC (Bld) 0.4 % 0-1 [facility] Bilirubin Test strip Ql (U)O rdered By: Tejinder Mora on 10-30-2024 Bilirubin Ql (U) Negative Negative [facility] Bilirubin, totalOrdered By: Tejinderpuja Mora on 10-30-2024 Bilirubin [Mass/Vol] 1.00 mg/dL 0.20-1.00 [facility] Comment on above: For patients on eltr ombopag therapy, use of Dimension [place] TBIL is not recommended. Blood urea nitrogen (BUN)/cr eatinine ratioOrdered By: Tejinderpuja Mora on 10-30-2024 Urea nitrogen/Creatinine [Mass ratio] 14.4 mg/mg 10-20 [facility] Brain/Head without Contrasto n 10-30-2024 Brain/Head without Contrast Normal [facility] CBC W/Diff, Automatedon 10-15 Absolute Lymph 1.55 X10 3/uL Normal 0.83-4.51 [facility] Comment on above: Performed By: #### L 500.4050, L503.6005, L100.0100 ####[facility] [address] [place], [address] Absolute Neut 2.9 X10 3/uL Normal 2.0-7.7 [facility] Comment on above: Performed By: #### L 500.4050, L503.6005, L100.0100 ####[facility] [address] [place], [address] Basophils/100 WBC (Bld) 0.4 % Normal 0-1 [facility] Comment on above: Performed By: #### L 500.4050, L503.6005, L100.0100 ####[facility] [address] [place], [address] Eosinophils/100 WBC (Bld) 0.4 % Normal 0-5 [facility] Comment on above: Performed By: #### L 500.4050, L503.6005, L100.0100 ####[facility] [address] [place], [address] Erythrocyte distribution width (RBC) [Ratio] 12.8 % Normal 11.6-14.6 [facility] Comment on above: Performed By: #### L 500.4050, L503.6005, L100.0100 ####[facility] [address] [place], [address] Hematocrit (Bld) [Volume fraction] 37.2 % Normal 37-47 [facility] Comment on above: Performed By: #### L 500.4050, L503.6005, L100.0100 ####[facility] [address] [place], [address] Hemoglobin (Bld) [Mass/Vol] 13.3 g/dL Normal 12.0-15.0 [facility] Comment on above: Performed By: #### L 500.4050, L503.6005, L100.0100 ####[facility] [address] [place], [address] IG% 0.600 Normal 0.0-0.9 [facility] Comment on above: Result Comment: IG% - Immature Granulocytes (promyelocytes, myelocytes andmetamyelocytes) > 1% indicates that a LEFT SHIFT is Present. Performed By: #### L 500.4050, L503.6005, L100.0100 ####[facility] [address] [place], [address] Lymphocytes/100 WBC (Bld) 29.5 % Normal 19-41 [facility] Comment on above: Performed By: #### L 500.4050, L503.6005, L100.0100 ####[facility] [address] [place], [address] MCH (RBC) [Entitic mass] 32.7 pg High 27.0-32.0 [facility] Comment on above: Performed By: #### L 500.4050, L503.6005, L100.0100 ####[facility] [address] [place], [address] MCHC (RBC) [Mass/Vol] 35.8 g/dL Normal 32-36 [facility] Comment on above: Performed By: #### L 500.4050, L503.6005, L100.0100 ####[facility] [address] [place], [address] MCV (RBC) [Entitic vol] 91.4 fL Normal 81-99 [facility] Comment on above: Performed By: #### L 500.4050, L503.6005, L100.0100 ####[facility] [address] [place], [address] Monocytes/100 WBC (Bld) 13.7 % High 0-10 [facility] Comment on above: Performed By: #### L 500.4050, L503.6005, L100.0100 ####[facility] [address] [place], [address] Neutrophils/100 WBC (Bld) 55.4 % Normal 47-70 [facility] Comment on above: Performed By: #### L 500.4050, L503.6005, L100.0100 ####[facility] [address] [place], [address] Nucleated RBC (Bld) [#/Vol] 0 10*3/uL Normal 0-5 [facility] Comment on above: Performed By: #### L 500.4050, L503.6005, L100.0100 ####[facility] [address] [place], [address] Platelet mean volume (Bld) [Entitic vol] 9.5 fL Normal 6.2-12.0 [facility] Comment on above: Performed By: #### L 500.4050, L503.6005, L100.0100 ####[facility] [address] [place], [address] Platelets (Bld) [#/Vol] 256 10*3/uL Normal 150-450 [facility] Comment on above: Performed By: #### L 500.4050, L503.6005, L100.0100 ####[facility] [address] [place], [address] RBC (Bld) [#/Vol] 4.07 10*6/uL Low 4.2-5.4 [facility] Comment on above: Performed By: #### L 500.4050, L503.6005, L100.0100 ####[facility] [address] [place], [address] RDW SD 42.8 fl Normal 35.1-43.9 [facility] Comment on above: Performed By: #### L 500.4050, L503.6005, L100.0100 ####[facility] [address] [place], [address] WBC (Bld) [#/Vol] 5.3 10*3/uL Normal 4.4-11.0 [facility] Comment on above: Performed By: #### L 500.4050, L503.6005, L100.0100 ####[facility] [address] [place], [address] Carbon dioxide measurementOr dered By: Tejinderpuja Mora on 10-30-2024 CO2 [Moles/Vol] 27.0 mmol/L 21.0-32.0 [facility] Chloride measurementOrdered By: Tejinderpuja Mora on 10-30-2024 Chloride [Moles/Vol] 91 mmol/L Low 98-107 [facility] Comprehensive Metabolic Prof ilon 10-30-2024 Albumin [Mass/Vol] 3.3 g/dL Normal 3.2-5.0 [facility] Comment on above: Performed By: #### L 500.4050, L503.6005, L100.0100 ####[facility] [address] [place], [address] Albumin/Globulin [Mass ratio] 0.9 {ratio} Normal 0.9-2.4 [facility] Comment on above: Performed By: #### L 500.4050, L503.6005, L100.0100 ####[facility] [address] [place], [address] ALK P 95 U/L Normal 45-117 [facility] Comment on above: Performed By: #### L 500.4050, L503.6005, L100.0100 ####[facility] [address] [place], [address] ALT [Catalytic activity/Vol] 29 U/L Normal 13-56 [facility] Comment on above: Performed By: #### L 500.4050, L503.6005, L100.0100 ####[facility] [address] [place], [address] AST [Catalytic activity/Vol] 29 U/L Normal 15-37 [facility] Comment on above: Performed By: #### L 500.4050, L503.6005, L100.0100 ####[facility] [address] [place], [address] Bilirubin [Mass/Vol] 1.00 mg/dL Normal 0.20-1.00 [facility] Comment on above: Result Comment: For patients on eltrombopag therapy, use of Dimension [place] TBIL is not recommended. Performed By: #### L 500.4050, L503.6005, L100.0100 ####[facility] [address] [place], [address] BUN/CRE 14.4 RATIO Normal 10-20 [facility] Comment on above: Performed By: #### L 500.4050, L503.6005, L100.0100 ####[facility] [address] [place], [address] CA,Total 8.7 mg/dL Normal 8.5-10.1 [facility] Comment on above: Performed By: #### L 500.4050, L503.6005, L100.0100 ####[facility] [address] [place], [address] Chloride [Moles/Vol] 91 mmol/L Low 98-107 [facility] Comment on above: Performed By: #### L 500.4050, L503.6005, L100.0100 ####[facility] [address] [place], [address] CO2 [Moles/Vol] 27.0 mmol/L Normal 21.0-32.0 [facility] Comment on above: Performed By: #### L 500.4050, L503.6005, L100.0100 ####[facility] [address] [place], [address] Creatinine [Mass/Vol] 1.11 mg/dL High 0.55-1.02 [facility] Comment on above: Result Comment: The validity of the calculated GFR GFRAA in patients over70 years has not been determined. Clinical correlation isessential. Performed By: #### L 500.4050, L503.6005, L100.0100 ####[facility] [address] [place], [address] ECRCL 35.10 ml/min Normal [facility] Comment on above: Performed By: #### L 500.4050, L503.6005, L100.0100 ####[facility] [address] [place], [address] EST GFR - AA 60 mL/min Normal >60 [facility] Comment on above: Result Comment: Afri can Tanzanian GFR Calc Performed By: #### L 500.4050, L503.6005, L100.0100 ####[facility] [address] [place], [address] GAP 10 Normal 5-15 [facility] Comment on above: Performed By: #### L 500.4050, L503.6005, L100.0100 ####[facility] [address] [place], [address] GFR/1.73 sq M.predicted among non-blacks MDRD (S/P/Bld) [Vol rate/Area] 50 mL/min/{1.73_m2} Low >60 [facility] Comment on above: Result Comment: Non- GFR Calc Performed By: #### L 500.4050, L503.6005, L100.0100 ####[facility] [address] [place], [address] Globulin (S) [Mass/Vol] 3.5 g/dL Normal 2.2-4.2 [facility] Comment on above: Performed By: #### L 500.4050, L503.6005, L100.0100 ####[facility] [address] [place], [address] Glucose [Mass/Vol] 120 mg/dL High 74-106 [facility] Comment on above: Result Comment: Fast ing Glucose result from 100 to 125 mg/dLsuggests IMPAIRED HOMEOSTASIS per A.D.A. criteria. Performed By: #### L 500.4050, L503.6005, L100.0100 ####[facility] [address] [place], [address] Potassium [Moles/Vol] 3.3 mmol/L Low 3.5-5.1 [facility] Comment on above: Performed By: #### L 500.4050, L503.6005, L100.0100 ####[facility] [address] [place], [address] Sodium [Moles/Vol] 127 mmol/L Low 136-145 [facility] Comment on above: Performed By: #### L 500.4050, L503.6005, L100.0100 ####[facility] [address] [place], [address] T PROT 6.8 g/dL Normal 6.4-8.2 [facility] Comment on above: Performed By: #### L 500.4050, L503.6005, L100.0100 ####[facility] [address] [place], [address] Urea nitrogen [Mass/Vol] 16 mg/dL Normal 7-18 [facility] Comment on above: Performed By: #### L 500.4050, L503.6005, L100.0100 ####[facility] [address] [place], [address] Emergency Department Summary on 10-30-2024 Emergency Department Summary Normal [facility] Eosinophil percentageOrdered By: Tejnider Mora on 10-30-2024 Eosinophils/100 WBC (Bld) 0.4 % 0-5 [facility] Epithelial cells.squamous LM Ql (Urine sed)Ordered By: Tejinder Mora on 10-30-2024 Epithelial cells.squamous LM.HPF (Urine sed) [#/Area] 0 /[HPF] 5-10 [facility] Erythrocyte distribution wid th (RBC) [Ratio]Ordered By: Tejinder Mora on 10-30-2024 Erythrocyte distribution width (RBC) [Entitic vol] 42.8 fL 35.1-43.9 [facility] Erythrocyte distribution wid th ratioOrdered By: Tejinder Mora on 10-30-2024 Erythrocyte distribution width (RBC) [Ratio] 12.8 % 11.6-14.6 [facility] Estimated glomerular filtrat ion rate (GFR) AmericanOrdered By: Tejinder Mora on 10-30-2024 Estimated GFR (MDRD) Amer 60 mL/min >60 [facility] Comment on above: GFR Calc Estimation of creatinine khushboo aranceOrdered By: Tejinder Mora on 10-30-2024 Estimated Creatinine Clearance Calc 35.10 ml/min [facility] Fine Granular Casts LM.LPF ( Urine sed) [#/Area]Ordered By: Tejinder Mora on 10-30-2024 Urine Fine Granular Casts 0-5 SEEN /lpf 0-5 [facility] Glomerular filtration rate ( GFR) estimationOrdered By: Tejinder Bassetto on 10-30-2024 Estimated GFR (MDRD) Non-Af Amer 50 mL/min Low >60 [facility] Comment on above: Non- GFR Calc Glucose Ql (U)Ordered By: Vero Mora on 10-30-2024 Urine Glucose (UA) Normal mg/dl Normal [facility] Glucose measurementOrdered B y: Tejinder Mora on 10-30-2024 Glucose [Mass/Vol] 120 mg/dL High 74-106 [facility] Comment on above: Fasting Glucose resu lt from 100 to 125 mg/dL suggests IMPAIRED HOMEOSTASIS per A.D.A. criteria. Hematocrit Auto (Bld) [Volum e fraction]Ordered By: Tejinder Mora on 10-30-2024 Hematocrit (Bld) [Volume fraction] 37.2 % 37-47 [facility] Hemoglobin measurementOrdere d By: Tejinder Mora on 10-30-2024 Hemoglobin (Bld) [Mass/Vol] 13.3 g/dL 12.0-15.0 [facility] Hyaline casts LM.LPF (Urine sed) [#/Area]Ordered By: Tejinder Mora on 10-30-2024 Hyaline casts LM Ql (Urine sed) 5-10 SEEN /lpf 0-5 [facility] Immature granulocytes/100 WB C Auto (Bld)Ordered By: Tejinder Mora on 10-30-2024 Immature granulocytes/100 WBC (Bld) 0.600 % 0.0-0.9 [facility] Comment on above: IG% - Immature Granu locytes (promyelocytes, myelocytes and metamyelocytes) > 1% indicates that a LEFT SHIFT is Present. Ketones Test strip Ql (U)Ord ered By: Tejinder Mora on 10-30-2024 Ketones Ql (U) 15 mg/dl High Negative [facility] Laboratory - Chemistry and C hemistry - challengeOrdered By: Tejinder Mora on 10-30-2024 AST [Catalytic activity/Vol] 29 U/L 15-37 [facility] Lactic Acidon 10-30-2024 Lactate [Moles/Vol] 2.0 mmol/L Normal 0.4-1.9 [facility] Comment on above: Order Comment: Y Result Comment: Crit ical Result(s) Called at: 20:50:47 10/30/2024 by:Caitie Nayak to [facility]. Results read back by same. Performed By: #### L 500.4050, L503.6005, L100.0100 ####[facility] [address] [place], [address] Lactic acid measurementOrder ed By: Tejinder Mora on 10-30-2024 Lactate [Moles/Vol] 2.0 mmol/L 0.4-2.0 [facility] Comment on above: Critical Result(s) C alled at: 20:50:47 10/30/2024 by[facility] Results read back by same. Lymphocytes Auto (Unsp spec) [#/Vol]Ordered By: Tejinder Mora on 10-30-2024 Lymphocytes (Bld) [#/Vol] 1.55 10*3/uL 0.83-4.5 1 [facility] Lymphocytes/100 WBC Auto (Un sp spec)Ordered By: Tejinder Mora on 10-30-2024 Lymphocytes/100 WBC (Bld) 29.5 % 19-41 [facility] MCV (mean corpuscular volume ) determinationOrdered By: eTjinder Mora on 10-30-2024 MCV (RBC) [Entitic vol] 91.4 fL 81-99 [facility] Mean corpuscular hemoglobin (MCH) determinationOrdered By: Tejinderpuja Mora on 10-30-2024 MCH (RBC) [Entitic mass] 32.7 pg High 27.0-32.0 [facility] Mean corpuscular hemoglobin concentration (MCHC) determinationOrdered By: Tejinderpuja Mora on 10-30-2024 MCHC (RBC) [Mass/Vol] 35.8 g/dL 32-36 [facility] Mean platelet volume determi nationOrdered By: Tejinder Mora on 10-30-2024 Platelet mean volume (Bld) [Entitic vol] 9.5 fL 6.2-12.0 [facility] Microscopic analysis of urin e for red blood cells (RBC)Ordered By: Tejinder Mora on 10-30-2024 Urine RBC 0-5 SEEN /hpf 0-5 [facility] Monocyte percentageOrdered B y: Tejinder Mora on 10-30-2024 Monocytes/100 WBC (Bld) 13.7 % High 0-10 [facility] Mucus LM Ql (Urine sed)Order ed By: Tejinder Mora on 10-30-2024 Mucus Ql (Urine sed) 1+ /hpf [facility] Neutrophil percentageOrdered By: Tejinderpuja Mora on 10-30-2024 Neutrophils/100 WBC (Bld) 55.4 % 47-70 [facility] Nitrite Test strip Ql (U)Ord ered By: Tejinder Mora on 10-30-2024 Nitrite Ql (U) Negative Negative [facility] Nucleated red blood cell per centageOrdered By: Tejinder Mora on 10-30-2024 Nucleated RBC/100 WBC (Bld) [Ratio] 0 % 0-5 [facility] Platelet countOrdered By: Vero Mora on 10-30-2024 Platelets (Bld) [#/Vol] 256 10*3/uL 150-450 [facility] Potassium measurementOrdered By: Tejinder Mora on 10-30-2024 Potassium [Moles/Vol] 3.3 mmol/L Low 3.5-5.1 [facility] Protein Test strip Ql (U)Ord ered By: Tejinder Mora on 10-30-2024 Protein Ql (U) 30 mg/dl High Negative [facility] RBC Auto (Bld) [#/Vol]Ordere d By: Tejinder Mora on 10-30-2024 RBC (Bld) [#/Vol] 4.07 10*6/uL Low 4.2-5.4 [facility] Serum anion gap measurementO rdered By: Tejinder Mora on 10-30-2024 Anion gap [Moles/Vol] 10 mmol/L 5-15 [facility] Serum globulin measurementOr dered By: Tejinder Mora on 10-30-2024 Globulin (S) [Mass/Vol] 3.5 g/dL 2.2-4.2 [facility] Serum or plasma alanine khan otransferase (ALT) measurementOrdered By: Tejinder Mora on 10-30-2024 ALT [Catalytic activity/Vol] 29 U/L 13-56 [facility] Serum or plasma albumin glo urement (mass/volume)Ordered By: Tejinder Mora on 10-30-2024 Albumin [Mass/Vol] 3.3 g/dL 3.2-5.0 [facility] Serum or plasma alkaline lourdes sphatase measurementOrdered By: Tejinder Mora on 10-30-2024 ALP [Catalytic activity/Vol] 95 U/L 45-117 [facility] Serum or plasma calcium glo urement (mass/volume)Ordered By: Tejinder Mora on 10-30-2024 Calcium [Mass/Vol] 8.7 mg/dL 8.5-10.1 [facility] Serum or plasma creatinine m easurement (mass/volume)Ordered By: Tejinder Mora on 10-30-2024 Creatinine [Mass/Vol] 1.11 mg/dL High 0.55-1.02 [facility] Comment on above: The validity of the calculated GFR & GFRAA in patients over 70 years has not been determined. Clinical correlation is essential. Serum or plasma urea nitroge n measurement (mass/volume)Ordered By: [facility] on 10-30-2024 Urea nitrogen [Mass/Vol] 16 mg/dL 7-18 [facility] [facility] S[facility] levelOrdered By: [facility] on 10-30-2024 Sodium [Moles/Vol] 127 mmol/L Low 136-145 [facility] Total proteinOrdered By: [facility] on 10-30-2024 Protein [Mass/Vol] 6.8 g/dL 6.4-8.2 [facility] Urinalysis, Completeon 10-30 CAST,FINE GRAN 0-5 SEEN Normal 0-5 [facility] Comment on above: Order Comment: JULIÁN TER SPECIMEN Performed By: #### L 400.0001 ####[facility] [address] [place] [address] CAST,HYALINE 5-10 SEEN Normal 0-5 [facility] Comment on above: Order Comment: JULIÁN TER SPECIMEN Performed By: #### L 400.0001 ####[facility] [address] [place] [id number] Mucus Ql (Urine sed) 1+ /hpf Normal [facility] Comment on above: Order Comment: JULIÁN TER SPECIMEN Performed By: #### L 400.0001 ####[facility] [address] [place] [id number] RBC 0-5 SEEN Normal 0-5 [facility] Comment on above: Order Comment: JULIÁN TER SPECIMEN Performed By: #### L 400.0001 ####[facility] [address] [place] [phone] WBC 10-25 SEEN Normal 0-5 [facility] Comment on above: Order Comment: JULIÁN TER SPECIMEN Performed By: #### L 400.0001 ####[facility] [address] [place] [phone] BACTERIA 0 SEEN Normal None Seen [facility] Comment on above: Order Comment: JULIÁN TER SPECIMEN Performed By: #### L 400.0001 ####[facility] [address] [place], [address] EPI,SQUAMOUS 0 SEEN Normal 5-10 [facility] Comment on above: Order Comment: JULIÁN TER SPECIMEN Performed By: #### L 400.0001 ####[facility] [address] [place], [place], [id number] Urine blood detectionOrdered By: Tejinder Mora on 10-30-2024 Urine Occult Blood 50 /ul High Negative [facility] Urine clarityOrdered By: Tejinder Mora on 10-30-2024 Clarity (U) Sl. Cloudy Clear [facility] Urine color determinationOrd ered By: Tejinder Mora on 10-30-2024 Color (U) Yellow Yellow [facility] Urine leukocyte esterase det ection by dipstickOrdered By: Tejinder Mora on 10-30-2024 Leukocyte esterase Test strip Ql (U) 500 /ul High Negative [facility] Urine pHOrdered By: Tejinder Gall puja on 10-30-2024 pH (U) 7.0 [pH] 5.0 - 8.0 [facility] Urine sediment bacteria coun t by microscopy (number/high power field)Ordered By: Tejinder Mora on 10-30-2024 Bacteria LM.HPF (Urine sed) [#/Area] 0 /[HPF] None Seen [facility] Urine specific gravity measu rementOrdered By: Tejinder Mora on 10-30-2024 Specific gravity (U) [Rel density] 1.010 1.002-1.030 [facility] Urobilinogen Ql (U)Ordered B y: Tejinder Mora on 10-30-2024 Urine Urobilinogen Normal mg/dl Normal [facility] White blood cell (WBC) count Ordered By: Tejinder Mora on 10-30-2024 WBC (Bld) [#/Vol] 5.3 10*3/uL 4.4-11.0 [facility] White blood cell countOrdere d By: Tejinder Mora on 10-30-2024 Urine WBC 10-25 SEEN /hpf 0-5 [facility] Basic Metabolic Profile (BMP )on 09-20-2024 BUN/CRE 21.7 RATIO High 10-20 [facility] Comment on above: Performed By: #### L 500.2500 ####[facility] [address] [place], [address] CA,Total 8.6 mg/dL Normal 8.5-10.1 [facility] Comment on above: Performed By: #### L 500.2500 ####[facility] [address] [place], [address] Chloride [Moles/Vol] 100 mmol/L Normal 98-107 [facility] Comment on above: Performed By: #### L 500.2500 ####[facility] [address] [place], [address] CO2 [Moles/Vol] 29.0 mmol/L Normal 21.0-32.0 [facility] Comment on above: Performed By: #### L 500.2500 ####[facility] [address] [place], [address] Creatinine [Mass/Vol] 0.97 mg/dL Normal 0.55-1.02 [facility] Comment on above: Result Comment: The validity of the calculated GFR GFRAA in patients over70 years has not been determined. Clinical correlation isessential. Performed By: #### L 500.2500 ####[facility] [address] [place], [address] ECRCL 38.26 ml/min Normal [facility] Comment on above: Performed By: #### L 500.2500 ####[facility] [address] [place], [address] EST GFR - AA 71 mL/min Normal >60 [facility] Comment on above: Result Comment: Afri can Tanzanian GFR Calc Performed By: #### L 500.2500 ####[facility] [address] [place], [address] GAP 4 Low 5-15 [facility] Comment on above: Performed By: #### L 500.2500 ####[facility] [address] [place], [address] GFR/1.73 sq M.predicted among non-blacks MDRD (S/P/Bld) [Vol rate/Area] 59 mL/min/{1.73_m2} Low >60 [facility] Comment on above: Result Comment: Non- GFR Calc Performed By: #### L 500.2500 ####[facility] [address] [place], [address] Glucose [Mass/Vol] 119 mg/dL High 74-106 [facility] Comment on above: Result Comment: Fast ing Glucose result from 100 to 125 mg/dLsuggests IMPAIRED HOMEOSTASIS per A.D.A. criteria. Performed By: #### L 500.2500 ####[facility] [address] [place], [address] Potassium [Moles/Vol] 4.3 mmol/L Normal 3.5-5.1 [facility] Comment on above: Performed By: #### L 500.2500 ####[facility] [address] [place], [address] Sodium [Moles/Vol] 132 mmol/L Low 136-145 [facility] Comment on above: Performed By: #### L 500.2500 ####[facility] [address] [place], [address] Urea nitrogen [Mass/Vol] 21 mg/dL High 7-18 [facility] Comment on above: Performed By: #### L 500.2500 ####[facility] [address] [place], [address] Blood urea nitrogen (BUN)/cr eatinine ratioOrdered By: Larissa Nguyễn on 09-20-2024 Urea nitrogen/Creatinine [Mass ratio] 21.7 mg/mg High 10-20 [facility] Carbon dioxide measurementOr dered By: Larissa Nguyễn on 09-20-2024 CO2 [Moles/Vol] 29.0 mmol/L 21.0-32.0 [facility] Chloride measurementOrdered By: Larissa Nguyễn on 09-20-2024 Chloride [Moles/Vol] 100 mmol/L 98-107 [facility] Estimated glomerular filtrat ion rate (GFR) AmericanOrdered By: Larissa Nguyễn on 09-20-2024 Estimated GFR (MDRD) Amer 71 mL/min >60 [facility] Comment on above: GFR Calc Estimation of creatinine khushboo aranceOrdered By: Larissa Nguyễn on 09-20-2024 Estimated Creatinine Clearance Calc 38.26 ml/min [facility] Glomerular filtration rate ( GFR) estimationOrdered By: Larissa Nguyễn on 09-20-2024 Estimated GFR (MDRD) Non-Af Amer 59 mL/min Low >60 [facility] Comment on above: Non- GFR Calc Glucose measurementOrdered B y: Larissa Nguyễn on 09-20-2024 Glucose [Mass/Vol] 119 mg/dL High 74-106 [facility] Comment on above: Fasting Glucose resu lt from 100 to 125 mg/dL suggests IMPAIRED HOMEOSTASIS per A.D.A. criteria. Potassium measurementOrdered By: Larissa Nguyễn on 09-20-2024 Potassium [Moles/Vol] 4.3 mmol/L 3.5-5.1 [facility] Serum anion gap measurementO rdered By: Larissa Nguyễn on 09-20-2024 Anion gap [Moles/Vol] 4 mmol/L Low 5-15 [facility] Serum or plasma calcium glo urement (mass/volume)Ordered By: Larissa Nguyễn on 09-20-2024 Calcium [Mass/Vol] 8.6 mg/dL 8.5-10.1 [facility] Serum or plasma creatinine m easurement (mass/volume)Ordered By: Larissa Nguyễn on 09-20-2024 Creatinine [Mass/Vol] 0.97 mg/dL 0.55-1.02 [facility] Comment on above: The validity of the calculated GFR & GFRAA in patients over 70 years has not been determined. Clinical correlation is essential. Serum or plasma urea nitroge n measurement (mass/volume)Ordered By: Larissa Nguyễn on 09-20-2024 Urea nitrogen [Mass/Vol] 21 mg/dL High - [facility] Sodium levelOrdered By: Louise Nguyễn on 09-20-2024 Sodium [Moles/Vol] 132 mmol/L Low 136-145 [facility] Basic Metabolic Profile (BMP )on 09-19-2024 BUN Normal -18 [facility] Comment on above: Result Comment: NOT SCHEDULED FOR TODAY BUT TOMORROW 09/20/24 PER KATHYNURSE Performed By: #### L 500.2500 ####[facility] [address] [place], [address] BUN/CRE Normal 10-20 [facility] Comment on above: Result Comment: NOT SCHEDULED FOR TODAY BUT TOMORROW 09/20/24 PER KATHYNURSE Performed By: #### L 500.2500 ####[facility] [address] [place], [address] CA,Total Normal 8.5-10.1 [facility] Comment on above: Result Comment: NOT SCHEDULED FOR TODAY BUT TOMORROW 09/20/24 PER KATHYNURSE Performed By: #### L 500.2500 ####[facility] [address] [place], [address] CL Normal 98-107 [facility] Comment on above: Result Comment: NOT SCHEDULED FOR TODAY BUT TOMORROW 09/20/24 PER KATHYNURSE Performed By: #### L 500.2500 ####[facility] [address] [place], [address] CO2 Normal 21.0-32.0 [facility] Comment on above: Result Comment: NOT SCHEDULED FOR TODAY BUT TOMORROW 01/07/25 PER KATHYNURSE Performed By: #### L 500.2500 ####[facility] [address] [place], [address] CREAT,SERUM Normal 0.55-1.02 [facility] Comment on above: Result Comment: NOT SCHEDULED FOR TODAY BUT TOMORROW 09/20/24 PER KATHYNURSE Performed By: #### L 500.2500 ####[facility] [address] [place], [address] EST GFR Normal >60 [facility] Comment on above: Result Comment: NOT SCHEDULED FOR TODAY BUT TOMORROW 09/20/24 PER KATHYNURSE Performed By: #### L 500.2500 ####[facility] [address] [place], [address] EST GFR - AA Normal >60 [facility] Comment on above: Result Comment: NOT SCHEDULED FOR TODAY BUT TOMORROW 09/20/24 PER KATHYNURSE Performed By: #### L 500.2500 ####[facility] [address] [place], [address] GAP Normal 5-15 [facility] Comment on above: Result Comment: NOT SCHEDULED FOR TODAY BUT TOMORROW 09/20/24 PER KATHYNURSE Performed By: #### L 500.2500 ####[facility] [address] [place], [address] GLU Normal 74-106 [facility] Comment on above: Result Comment: NOT SCHEDULED FOR TODAY BUT TOMORROW 09/20/24 PER KATHYNURSE Performed By: #### L 500.2500 ####[facility] [address] [place], [address] Potassium Normal 3.5-5.1 [facility] Comment on above: Result Comment: NOT SCHEDULED FOR TODAY BUT TOMORROW 09/20/24 PER KATHYNURSE Performed By: #### L 500.2500 ####[facility] [address] [place], [address] Basic Metabolic Profile (BMP) Normal 136-145 [facility] Comment on above: Result Comment: NOT SCHEDULED FOR TODAY BUT TOMORROW 09/20/24 PER SYED Performed By: #### L 500.2500 ####[facility] [address] [place], [address] Basic Metabolic Profile (BMP )on 09-12-2024 BUN Normal 7-18 [facility] Comment on above: Result Comment: PER OM AND SHANDALE NURSE PT NOT COMING IN TODAY Performed By: #### L 500.2500 ####[facility] [address] [place], [address] BUN/CRE Normal 10-20 [facility] Comment on above: Result Comment: PER OM AND SHANDALE NURSE PT NOT COMING IN TODAY Performed By: #### L 500.2500 ####[facility] [address] [place], [address] CA,Total Normal 8.5-10.1 [facility] Comment on above: Result Comment: PER OM AND SHANDALE NURSE PT NOT COMING IN TODAY Performed By: #### L 500.2500 ####[facility] [address] [place], [address] CL Normal 98-107 [facility] Comment on above: Result Comment: PER OM AND SHANDALE NURSE PT NOT COMING IN TODAY Performed By: #### L 500.2500 ####[facility] [address] [place], [address] CO2 Normal 21.0-32.0 [facility] Comment on above: Result Comment: PER OM AND SHANDALE NURSE PT NOT COMING IN TODAY Performed By: #### L 500.2500 ####[facility] [address] [place], [address] CREAT,SERUM Normal 0.55-1.02 [facility] Comment on above: Result Comment: PER OM AND SHANDALE NURSE PT NOT COMING IN TODAY Performed By: #### L 500.2500 ####[facility] [address] [place], [address] EST GFR Normal >60 [facility] Comment on above: Result Comment: PER OM AND SHANDALE NURSE PT NOT COMING IN TODAY Performed By: #### L 500.2500 ####[facility] [address] [place], [address] EST GFR - AA Normal >60 [facility] Comment on above: Result Comment: PER OM AND SHANDALE NURSE PT NOT COMING IN TODAY Performed By: #### L 500.2500 ####[facility] [address] [place], [address] GAP Normal 5-15 [facility] Comment on above: Result Comment: PER OM AND SHANDALE NURSE PT NOT COMING IN TODAY Performed By: #### L 500.2500 ####[facility] [address] [place], [address] GLU Normal 74-106 [facility] Comment on above: Result Comment: PER OM AND SHANDALE NURSE PT NOT COMING IN TODAY Performed By: #### L 500.2500 ####[facility] [address] [place], [address] Potassium Normal 3.5-5.1 [facility] Comment on above: Result Comment: PER OM AND SHANDALE NURSE PT NOT COMING IN TODAY Performed By: #### L 500.2500 ####[facility] [address] [place], [address] Basic Metabolic Profile (BMP) Normal 136-145 [facility] Comment on above: Result Comment: PER OM AND SHANDALE NURSE PT NOT COMING IN TODAY Performed By: #### L 500.2500 ####[facility] [address] [place], [address] Cardiology Visit Reporton Cardiology Visit Report Normal [facility] CNPNon 07-21-2024 CNPN Telephone (INTWS) ROSANA MAKI ([id number]) 1940 F NFR Date Time Provider Department 07/21/24 ROCHELLE HACKETTWS During your visit today, we recorded the [...] Sleep medicine order, TAYLOR, Facesheet, faxed to [facility] sleep center per patient request. Teri Araiza [...] [G47.30] Order(s):CONSULT TO SLEEP MEDICINE - ADULT [[id number]] Order #: [id number]: 1 FUTURE Prescriptions as of 07/28/2024 - [...] 120mg 3 at night Stress, blood sugar, thyroid/hormones/adr enals/sleep/energy/t oxins/muscles/consti pation/asthma Work up to 3 capsules with meals [...] 1 tablet by mouth once daily. - ergocalciferol(VITAM IN D 400 UNIT CAP) Take 1,000 Units by mouth once daily. 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] Palpitations [R00.2] 02/23/2009 Osteoporosis [M81.0] 07/04/2009 03/13/2012 [...] of b*09/08/2017 SIADH (syndrome of inappropriate ADH production* 8 Chronic pain of right knee [M25.561, G89.29] 10/06/2018 Hospital discharge follow-up [Z09] 11/18/2019 11/12/2022 Mild cognitive disorder [F09] 11/27/2020 Protein-calorie malnutrition, unspecified sever*01/14/2023 Encounter Status:Closed by TERI ARAIZA on 07/28/24 Normal [facility] POLYSOMNOGRAM (PSG)/HOME SLE EP APNEA TEST (HSAT)on 07-13-2024 POLYSOMNOGRAM (PSG)/HOME SLEEP APNEA TEST (HSAT) [facility] ??? [address] [place] [address] ; PSG Study Report Name: ROSANA MAKI Date of Study: 07/13/2024 CC#: [id number] Age: 84 (: 1940) ESS: 09/06 Neck [...] Sleep procedure: PSG 4 or more [facility] ([id number]) Procedure: The study was attended continuously by a cytopathology technologist. The monitored parameters included: left (E1-M2) [...] mmHg. The maximum ETCO2 was 42 mmHg. Rubio-Gleason/Period ic Breathing was not present. Supplemental oxygen was [...] criteria. Respiratory (more content not included)... Normal [facility] CNOVon 06-28-2024 CNOV Office Visit (PODIWS) ROSANA AMKI ([id number]) 1940 F NFR Date Time Provider Department 06/28/24 8:45 AM SOL HARVEY PODIWS During your visit today, we recorded the following information about you: Sol Harvey 06/28/2024 9:11 AM Signed FOLLOW UP PODIATRIC [...] region and thigh 04/27/2014 Recurrent UTI SOLAR LENGINES////DYSCHROM IA OTHER 04/20/2008 Tachycardia tachycardia, atrial flutter Unspecified [...] 120mg 3 at night Stress, blood sugar, thyroid/hormones/adr enals/sleep/energy/t oxins/muscles/consti pation/asthma Work up to 3 capsules with meals [...] Take 1 tablet by mouth once daily. ergocalciferol(VITAM IN D 400 UNIT CAP) Take 1,000 Units by mouth once daily. No current facility-administere d medications for this visit. ALLERGIES Allergen Reactions [...] BIOPSY SINGLE/MULTIPLE EGD TRANSORAL BIOPSY SINGLE/MULTIPLE 08/01/2010 ESOPHAGOGASTRODUODEN OSCOPY TRANSORAL DIAGNOSTIC 06/01/2014 EGD NIPPLE EXPLORATION 09/27/2009 LEFT, surgical bx OOPHORECTOMY PARTIAL/TOTAL UNI/BI AGE 26 Oophorectomy-LEFT PAST SURGICAL HISTORY OF Left 04/2017 breast mastectomy SIGMOIDOSCOPY FLX DX W/COLLJ SPEC BR/WA IF PFRMD 07/23/2004 Sigmoidoscopy Physical Exam: O (more content not included)... Normal [facility] Absolute neutrophil countOrd ered By: Larissa Nguyễn on 06-07-2024 Neutrophils (Bld) [#/Vol] 2.3 10*3/uL 2.0-7.7 [facility] Alanine aminotransferase (AL T) assayOrdered By: Larissa Nguyễn on 06-07-2024 ALT [Catalytic activity/Vol] 25 U/L 13-56 [facility] Albumin to globulin ratioOrd ered By: Larissa Nguyễn on 06-07-2024 Albumin/Globulin [Mass ratio] 0.9 {ratio} 0.9-2.4 [facility] Alkaline phosphataseOrdered By: Larissa Nguyễn on 06-07-2024 ALP [Catalytic activity/Vol] 88 U/L 45-117 [facility] Basophil percentageOrdered B y: Larissa Nguyễn on 06-07-2024 Basophils/100 WBC (Bld) 1.0 % 0-1 [facility] Bilirubin, totalOrdered By: [facility] on 06-07-2024 Bilirubin [Mass/Vol] 0.50 mg/dL 0.20-1.00 [facility] Comment on above: For patients on eltr ombopag therapy, use of Dimension [place] TBIL is not recommended. Eosinophil percentageOrdered By: [facility] N[facility] on 06-07-2024 Eosinophils/100 WBC (Bld) 2.2 % 0-5 [facility] Erythrocyte distribution wid th (RBC) [Ratio]Ordered By: [facility] N[facility] on 06-07-2024 Erythrocyte distribution width (RBC) [Entitic vol] 53.1 fL High 35.1-43.9 [facility] Erythrocyte distribution wid th ratioOrdered By: [facility] Delma on 06-07-2024 Erythrocyte distribution width (RBC) [Ratio] 15.5 % High 11.6-14.6 [facility] Hematocrit Auto (Bld) [Volum e fraction]Ordered By: [facility] Delma on 06-07-2024 Hematocrit (Bld) [Volume fraction] 34.1 % Low 37-47 [facility] Hemoglobin measurementOrdere d By: [facility] N[facility] on 06-07-2024 Hemoglobin (Bld) [Mass/Vol] 11.5 g/dL Low 12.0-15.0 [facility] Immature granulocytes/100 WB C Auto (Bld)Ordered By: [facility] on 06-07-2024 Immature granulocytes/100 WBC (Bld) 0.000 % 0.0-0.9 [facility] Comment on above: IG% - Immature Granu locytes (promyelocytes, myelocytes and metamyelocytes) > 1% indicates that a LEFT SHIFT is Present. Laboratory - Chemistry and C hemistry - challengeOrdered By: [facility] N[facility] on 06-07-2024 AST [Catalytic activity/Vol] 26 U/L 15-37 [facility] Lymphocytes Auto (Unsp spec) [#/Vol]Ordered By: [facility] on 06-07-2024 Lymphocytes (Bld) [#/Vol] 1.92 10*3/uL 0.83-4.5 1 [facility] Lymphocytes/100 WBC Auto (Un sp spec)Ordered By: Larissa Nguyễn on 06-07-2024 Lymphocytes/100 WBC (Bld) 39.3 % 19-41 [facility] MCV (mean corpuscular volume ) determinationOrdered By: Larissa Nguyễn on 06-07-2024 MCV (RBC) [Entitic vol] 93.2 fL 81-99 [facility] Mean corpuscular hemoglobin (MCH) determinationOrdered By: Larissa Nguyễn on 06-07-2024 MCH (RBC) [Entitic mass] 31.4 pg 27.0-32.0 [facility] Mean corpuscular hemoglobin concentration (MCHC) determinationOrdered By: Larissa Nguyễn on 06-07-2024 MCHC (RBC) [Mass/Vol] 33.7 g/dL 32-36 [facility] Mean platelet volume determi nationOrdered By: Larissa Nguyễn on 06-07-2024 Platelet mean volume (Bld) [Entitic vol] 8.7 fL 6.2-12.0 [facility] Monocyte percentageOrdered B y: Larissa Nguyễn on 06-07-2024 Monocytes/100 WBC (Bld) 11.0 % High 0-10 [facility] Neutrophil percentageOrdered By: Larissa Nguyễn on 06-07-2024 Neutrophils/100 WBC (Bld) 46.5 % Low 47-70 [facility] Nucleated red blood cell per centageOrdered By: Larissa Nguyễn on 06-07-2024 Nucleated RBC/100 WBC (Bld) [Ratio] 0 % 0-5 [facility] Platelet countOrdered By: Mitchell Nguyễn on 06-07-2024 Platelets (Bld) [#/Vol] 233 10*3/uL 150-450 [facility] RBC Auto (Bld) [#/Vol]Ordere d By: Larissa Nguyễn on 06-07-2024 RBC (Bld) [#/Vol] 3.66 10*6/uL Low 4.2-5.4 [facility] Serum albumin measurementOrd ered By: Larissa Nguyễn on 06-07-2024 Albumin [Mass/Vol] 3.2 g/dL 3.2-5.0 [facility] Serum globulin measurementOr dered By: Larissa Nguyễn on 06-07-2024 Globulin (S) [Mass/Vol] 3.7 g/dL 2.2-4.2 [facility] Total proteinOrdered By: Mik jaimes Delma on 06-07-2024 Protein [Mass/Vol] 6.9 g/dL 6.4-8.2 [facility] White blood cell (WBC) count Ordered By: Larissa Delma on 06-07-2024 WBC (Bld) [#/Vol] 4.9 10*3/uL 4.4-11.0 [facility] CNOVon 06-02-2024 CNOV Office Visit (PODIWS) ROSANA MAKI ([id number]) 1940 F NFR Date Time Provider Department [...] pain on left great toe. PAIN EVALUATION 05/29/20242208 Pain Level: 3 Pain Location: Toe Description: [...] region and thigh 04/27/2014 Recurrent UTI SOLAR LENGINES////DYSCHROM IA OTHER 04/20/2008 Tachycardia tachycardia, atrial flutter Unspecified [...] 120mg 3 at night Stress, blood sugar, thyroid/hormones/adr enals/sleep/energy/t oxins/muscles/consti pation/asthma Work up to 3 capsules with meals [...] Take 1 tablet by mouth once daily. ergocalciferol(VITAM IN D 400 UNIT CAP) Take 1,000 Units by mouth once daily. No current facility-administere d medications for this visit. ALLERGIES Allergen Reactions [...] COLONOSCOPY FLX DX W/COLLJ SPEC WHEN PFRMD 11/ (more content not included)... Normal [facility] CBC W Auto Differential pane l (Bld)on 04-12-2024 Basophils (Bld) [#/Vol] 0.04 10*3/uL [facility] Basophils/100 WBC (Bld) 0.9 % C [facility] Differential cell count method Nom (Bld) Auto [facility] Eosinophils (Bld) [#/Vol] 0.21 10*3/uL [facility] Eosinophils/100 WBC (Bld) 4.9 % [facility] Erythrocyte distribution width (RBC) [Ratio] 15.7 % High 11.5 - 15.0 % [facility] [facility] Hematocrit (Bld) [Volume fraction] 35.1 % Low 36.0 - 46.0 % [facility] Hemoglobin (Bld) [Mass/Vol] 11.5 g/dL 11.5 - 15.5 g/dL [facility] Immature granulocytes (Bld) [#/Vol] NINF [facility] Immature granulocytes/100 WBC (Bld) 0.0 % [facility] Interpretation and review of laboratory results Abnormal [facility] Lymphocytes (Bld) [#/Vol] 1.69 10*3/uL [facility] Lymphocytes/100 WBC (Bld) 39.3 % [facility] MCH (RBC) [Entitic mass] 29.9 pg 26. 0 - 34.0 pg [facility] MCHC (RBC) [Mass/Vol] 32.8 g/dL 30.5 - 36.0 g/dL [facility] MCV (RBC) [Entitic vol] 91.4 fL 80.0 - 100.0 fL [facility] Monocytes (Bld) [#/Vol] 0.63 10*3/uL [facility] Monocytes/100 WBC (Bld) 14.7 % [facility] Neutrophils (Bld) [#/Vol] 1.73 10*3/uL [facility] Neutrophils/100 WBC (Bld) 40.2 % [facility] Nucleated RBC (Bld) [#/Vol] NINF [facility] Nucleated RBC/100 WBC (Bld) [Ratio] 0.0 % /100 WBC [facility] Platelet mean volume (Bld) [Entitic vol] 9.9 fL 9.0 - 12.7 fL [facility] Platelets (Bld) [#/Vol] 269 10*3/uL [facility] RBC (Bld) [#/Vol] 3.84 10*6/uL Low 3.90 - 5.2 0 m/uL [facility] WBC (Bld) [#/Vol] 4.30 10*3/uL [facility] Absolute lymphocyte countOrd ered By: Vinh Colon on 01-23-2024 Lymphocytes Auto (Unsp spec) [#/Vol] 1.51 10*3/uL 0.83-4.51 [facility] Automated lymphocyte count a s percentage of total leukocytesOrdered By: Vinh Colon on 01-23-2024 Lymphocytes/100 WBC Auto (Unsp spec) 30.0 % 19-41 [facility] Basophil percentageOrdered B y: Vinh Colon on 01-23-2024 Basophils/100 WBC (Bld) 0.8 % 0-1 [facility] Chloride [Moles/Vol] 94 mmol/L 98-107 [facility] Eosinophils/100 WBC (Bld) 0.4 % 0-5 [facility] Glucose [Mass/Vol] 141 mg/dL 74-106 [facility] Comment on above: Fasting Glucose resu lt greater than or equal to 126 mg/dL suggests DIABETES MELLITUS per A.D.A. criteria. Hemoglobin (Bld) [Mass/Vol] 11.6 g/dL 12.0-15.0 [facility] Monocytes/100 WBC (Bld) 5.2 % 0-10 [facility] Neutrophils (Bld) [#/Vol] 3.2 10*3/uL 2.0-7.7 [facility] Neutrophils/100 WBC (Bld) 63.4 % 47-70 [facility] Potassium [Moles/Vol] 3.5 mmol/L 3.5-5.1 [facility] Sodium [Moles/Vol] 128 mmol/L 136-145 [facility] WBC (Bld) [#/Vol] 5.0 10*3/uL 4.4-11.0 [facility] Determination of erythrocyte mean corpuscular volume (MCV)Ordered By: Vinh Colon on 01-23-2024 MCV (RBC) [Entitic vol] 87.4 fL 81-99 [facility] Erythrocyte distribution wid th ratioOrdered By: Vinh Colon on 01-23-2024 Erythrocyte distribution width (RBC) [Ratio] 14.6 % 11.6-14.6 [facility] Erythrocyte distribution wid th standard deviationOrdered By: Vinh Colon on 01-23-2024 Erythrocyte distribution width (RBC) [Entitic vol] 46.9 fL 35.1-43.9 [facility] Hematocrit Auto (Bld) [Volum e fraction]Ordered By: Vinh Colon on 01-23-2024 Hematocrit (Bld) [Volume fraction] 34.7 % 37-47 [facility] Immature granulocytes/100 WB C Auto (Bld)Ordered By: Vinh Colon on 01-23-2024 Immature granulocytes/100 WBC (Bld) 0.200 % 0.0-0.9 [facility] Comment on above: IG% - Immature Granu locytes (promyelocytes, myelocytes and metamyelocytes) > 1% indicates that a LEFT SHIFT is Present. Laboratory - Chemistry and C hemistry - challengeOrdered By: Vinh Colon on 01-23-2024 CO2 [Moles/Vol] 25.0 mmol/L 21.0-32.0 [facility] Urea nitrogen/Creatinine [Mass ratio] 20.0 mg/mg 10- [facility] Laboratory - Hematology and Cell countsOrdered By: Vinh Colon on 01-23-2024 MCH (RBC) [Entitic mass] 29.2 pg 27.0-32.0 [facility] MCHC (RBC) [Mass/Vol] 33.4 g/dL - [facility] Nucleated RBC/100 WBC (Bld) [Ratio] 0 % 0-5 [facility] Platelet mean volume (Bld) [Entitic vol] 9.0 fL 6.2-12.0 [facility] Platelets (Bld) [#/Vol] 286 10*3/uL 150-450 [facility] No Panel InformationOrdered By: Vinh Colon on 01-23-2024 Estimated Creatinine Clearance Calc 43.88 ml/min [facility] Estimated GFR (MDRD) Amer 83 mL/min >60 [facility] Comment on above: GFR Calc Estimated GFR (MDRD) Non-Af Amer 68 mL/min >60 [facility] Comment on above: Non- GFR Calc RBC Auto (Bld) [#/Vol]Ordere d By: Vinh Colon on 01-23-2024 RBC (Bld) [#/Vol] 3.97 10*6/uL 4.2-5.4 [facility] Serum or plasma calcium glo urement (mass/volume)Ordered By: Vinh Colon on 01-23-2024 Calcium [Mass/Vol] 9.0 mg/dL 8.5-10.1 [facility] Serum or plasma creatinine m easurement (mass/volume)Ordered By: Vinh Colon on 01-23-2024 Creatinine [Mass/Vol] 0.85 mg/dL 0.55-1.02 [facility] Comment on above: The validity of the calculated GFR & GFRAA in patients over 70 years has not been determined. Clinical correlation is essential. Serum or plasma urea nitroge n measurement (mass/volume)Ordered By: Vinh Colon on 01-23-2024 Urea nitrogen [Mass/Vol] 17 mg/dL 7-18 [facility] Thin prep Papanicolaou smear with manual screeningOrdered By: Vinh Colon on 01-23-2024 Thin prep Papanicolaou smear with manual screening 9 5-15 [facility] Basophil percentageOrdered B y: Eagle Enciso on 12-18-2023 Chloride [Moles/Vol] 101 mmol/L 98-107 [facility] Glucose [Mass/Vol] 85 mg/dL 74-106 [facility] Potassium [Moles/Vol] 4.1 mmol/L 3.5-5.1 [facility] Sodium [Moles/Vol] 134 mmol/L 136-145 [facility] Laboratory - Chemistry and C hemistry - challengeOrdered By: Eagle Enciso on 12-18-2023 CO2 [Moles/Vol] 28.0 mmol/L 21.0-32.0 [facility] Urea nitrogen/Creatinine [Mass ratio] 19.9 mg/mg 10-20 [facility] No Panel InformationOrdered By: Eagle Enciso on 12-18-2023 Estimated GFR (MDRD) Amer 88 mL/min >60 [facility] Comment on above: GFR Calc Estimated GFR (MDRD) Non-Af Amer 73 mL/min >60 [facility] Comment on above: Non- GFR Calc Serum or plasma calcium glo urement (mass/volume)Ordered By: Eagle Enciso on 12-18-2023 Calcium [Mass/Vol] 8.8 mg/dL 8.5-10.1 [facility] Serum or plasma creatinine m easurement (mass/volume)Ordered By: Eagle Enciso on 12-18-2023 Creatinine [Mass/Vol] 0.80 mg/dL 0.55-1.02 [facility] Comment on above: The validity of the calculated GFR & GFRAA in patients over 70 years has not been determined. Clinical correlation is essential. Serum or plasma urea nitroge n measurement (mass/volume)Ordered By: Eagle Enciso on 12-18-2023 Urea nitrogen [Mass/Vol] 16 mg/dL 7-18 [facility] Thin prep Papanicolaou smear with manual screeningOrdered By: Eagle Enciso on 12-18-2023 Thin prep Papanicolaou smear with manual screening 5 5-15 [facility] Absolute lymphocyte countOrd ered By: Mayur Tabares on 12-08-2023 Lymphocytes Auto (Unsp spec) [#/Vol] 0.60 10*3/uL 0.83-4.51 [facility] Automated lymphocyte count a s percentage of total leukocytesOrdered By: Mayur Tabares on 12-08-2023 Lymphocytes/100 WBC Auto (Unsp spec) 18.8 % 19-41 [facility] Basophil percentageOrdered B y: Mayur Tabares on 12-08-2023 Basophils/100 WBC (Bld) 0.3 % 0-1 [facility] Chloride [Moles/Vol] 98 mmol/L 98-107 [facility] Eosinophils/100 WBC (Bld) 0.9 % 0-5 [facility] Glucose [Mass/Vol] 114 mg/dL 74-106 [facility] Comment on above: Fasting Glucose resu lt from 100 to 125 mg/dL suggests IMPAIRED HOMEOSTASIS per A.D.A. criteria. Hemoglobin (Bld) [Mass/Vol] 11.3 g/dL 12.0-15.0 [facility] Monocytes/100 WBC (Bld) 7.2 % 0-10 [facility] Neutrophils (Bld) [#/Vol] 2.3 10*3/uL 2.0-7.7 [facility] Neutrophils/100 WBC (Bld) 72.5 % 47-70 [facility] Potassium [Moles/Vol] 3.9 mmol/L 3.5-5.1 [facility] Sodium [Moles/Vol] 130 mmol/L 136-145 [facility] WBC (Bld) [#/Vol] 3.2 10*3/uL 4.4-11.0 [facility] Basophil percentage 50-100 SEEN /hpf 0-5 [facility] Bilirubin Test strip Ql (U)O rdered By: Mayur Tabares on 12-08-2023 Bilirubin Ql (U) Negative Negative [facility] Blood manual differential co mment interpretation (narrative result)Ordered By: Mayru Tabares on 12-08-2023 Manual differential comment Inocencio (Bld) [Interp] SEE COMMENT [facility] Comment on above: LYMPHOPENIA NOTED Blood platelet adequacy dete ction by light microscopyOrdered By: Mayur Tabares on 12-08-2023 Platelets LM Ql (Bld) ADEQUATE ADEQ [facility] Culture, urineOrdered By: Getachew Tabares on 12-08-2023 Bacteria identified Cx Nom (U) Positive [facility] Determination of erythrocyte mean corpuscular volume (MCV)Ordered By: Mayur Tabares on 12-08-2023 MCV (RBC) [Entitic vol] 88.2 fL 81-99 [facility] Erythrocyte distribution wid th ratioOrdered By: Mayur Tabares on 12-08-2023 Erythrocyte distribution width (RBC) [Ratio] 14.9 % 11.6-14.6 [facility] Erythrocyte distribution wid th standard deviationOrdered By: Mayur Tabares on 12-08-2023 Erythrocyte distribution width (RBC) [Entitic vol] 48.4 fL 35.1-43.9 [facility] Hematocrit Auto (Bld) [Volum e fraction]Ordered By: Mayur Tabares on 12-08-2023 Hematocrit (Bld) [Volume fraction] 33.6 % 37-47 [facility] Immature granulocytes/100 WB C Auto (Bld)Ordered By: Mayur Tabares on 12-08-2023 Immature granulocytes/100 WBC (Bld) 0.300 % 0.0-0.9 [facility] Comment on above: IG% - Immature Granu locytes (promyelocytes, myelocytes and metamyelocytes) > 1% indicates that a LEFT SHIFT is Present. Ketones Test strip Ql (U)Ord ered By: Mayur Tabares on 12-08-2023 Ketones Ql (U) 5 mg/dl Negative [facility] Laboratory - Chemistry and C hemistry - challengeOrdered By: Mayur Tabares on 12-08-2023 CO2 [Moles/Vol] 25.0 mmol/L 21.0-32.0 [facility] Urea nitrogen/Creatinine [Mass ratio] 17.7 mg/mg 10-20 [facility] Laboratory - Hematology and Cell countsOrdered By: Mayur Tabares on 12-08-2023 Anisocytosis Ql (Bld) RARE [facility] MCH (RBC) [Entitic mass] 29.7 pg 27.0-32.0 [facility] MCHC (RBC) [Mass/Vol] 33.6 g/dL 32-36 [facility] Nucleated RBC/100 WBC (Bld) [Ratio] 0 % 0-5 [facility] Platelet mean volume (Bld) [Entitic vol] 9.0 fL 6.2-12.0 [facility] Platelets (Bld) [#/Vol] 221 10*3/uL 150-450 [facility] Laboratory - Microbiology an d Antimicrobial susceptibilityOrdered By: Mayur Tabares on 12-08-2023 SARS-CoV-2 (COVID-19) RNA MIGUEL ANGEL+probe Ql (Unsp spec) [facility] Macrocytes detectionOrdered By: Mayur Tabares on 12-08-2023 Macrocytes Ql (Bld) RARE [facility] Mucus LM Ql (Urine sed)Order ed By: Mayur Tabares on 12-08-2023 Mucus Ql (Urine sed) RARE /hpf [facility] Nitrite Test strip Ql (U)Ord ered By: Mayur Tabares on 12-08-2023 Nitrite Ql (U) Negative Negative [facility] No Panel InformationOrdered By: Mayur Tabares on 12-08-2023 Estimated Creatinine Clearance Calc 45.23 ml/min [facility] Estimated GFR (MDRD) Amer 83 mL/min >60 [facility] Comment on above: GFR Calc Estimated GFR (MDRD) Non-Af Amer 69 mL/min >60 [facility] Comment on above: Non- GFR Calc Urine RBC 0-5 SEEN /hpf 0-5 [facility] Ovalocyte detectionOrdered B y: Mayur Tabares on 12-08-2023 Ovalocytes LM Ql (Bld) RARE [facility] Protein Test strip Ql (U)Ord ered By: Mayur Tabares on 12-08-2023 Protein Ql (U) 15 mg/dl Negative [facility] RBC Auto (Bld) [#/Vol]Ordere d By: Mayur Tabares on 12-08-2023 RBC (Bld) [#/Vol] 3.81 10*6/uL 4.2-5.4 [facility] RBC morphologyOrdered By: Getachew Tabares on 12-08-2023 RBC morphology finding Nom (Bld) N CHROM NORMAL NORM C&C [facility] Review by pathologistOrdered By: Mayur Tabares on 12-08-2023 Pathologist review Inocencio (Unsp spec) [Interp] Emily morales [facility] Pathologist review Inocencio (Unsp spec) [Interp] Reviewed [facility] Comment on above: Previous reported re sult: Emily morales Edited by: DIANA on 12/09/23:1625LEUKOPENIAClinical correlation necessary.Chi Patricia M.D. 12/09/23 AMENDED REPORT 12/09/23 1625 PATH REV previously reported as: Emily morales Serum or plasma calcium glo urement (mass/volume)Ordered By: Mayur Tabares on 12-08-2023 Calcium [Mass/Vol] 8.2 mg/dL 8.5-10.1 [facility] Serum or plasma creatinine m easurement (mass/volume)Ordered By: Mayur Tabares on 12-08-2023 Creatinine [Mass/Vol] 0.85 mg/dL 0.55-1.02 [facility] Comment on above: The validity of the calculated GFR & GFRAA in patients over 70 years has not been determined. Clinical correlation is essential. Serum or plasma urea nitroge n measurement (mass/volume)Ordered By: Mayur Tabares on 12-08-2023 Urea nitrogen [Mass/Vol] 15 mg/dL 7-18 [facility] Squamous epithelial cells de tection in urine sediment by light microscopyOrdered By: Mayur Tabares on 12-08-2023 Epithelial cells.squamous LM Ql (Urine sed) 0-5 SEEN /hpf 5-10 [facility] Thin prep Papanicolaou smear with manual screeningOrdered By: Mayur Tabares on 12-08-2023 Thin prep Papanicolaou smear with manual screening 7 5-15 [facility] Urine blood detectionOrdered By: Mayur Tabares on 12-08-2023 RBC Ql (U) 50 /ul Negative [facility] Urine clarityOrdered By: Barbara Tabares on 12-08-2023 Clarity (U) Cloudy Clear [facility] Urine color determinationOrd ered By: Mayur Tabares on 12-08-2023 Color (U) Yellow Yellow [facility] Urine glucose detectionOrder ed By: Mayur Tabares on 12-08-2023 Glucose Ql (U) Normal mg/dl Normal [facility] Urine leukocyte esterase det ection by dipstickOrdered By: Mayur Tabares on 12-08-2023 Leukocyte esterase Test strip Ql (U) 500 /ul Negative [facility] Urine pHOrdered By: Mayur wiggins on 12-08-2023 pH (U) 5.0 [pH] 5.0 - 8.0 [facility] Urine sediment bacteria coun t by microscopy (number/high power field)Ordered By: Mayur Tabares on 12-08-2023 Bacteria LM.HPF (Urine sed) [#/Area] 1 /[HPF] None Seen [facility] Urine specific gravity measu rementOrdered By: Mayur Tabares on 12-08-2023 Specific gravity (U) [Rel density] 1.015 1.002-1.030 [facility] Urine urobilinogen measureme ntOrdered By: Mayur Tabares on 12-08-2023 Urobilinogen Ql (U) 1 mg/dl Normal [facility] Absolute lymphocyte countOrd ered By: White on 11-22-2023 Lymphocytes Auto (Unsp spec) [#/Vol] 1.14 10*3/uL 0.83-4.51 [facility] Automated lymphocyte count a s percentage of total leukocytesOrdered By: White on 11-22-2023 Lymphocytes/100 WBC Auto (Unsp spec) 27.0 % 19-41 [facility] Basophil percentageOrdered B y: White on 11-22-2023 Basophils/100 WBC (Bld) 0.5 % 0-1 [facility] Bilirubin [Mass/Vol] 0.60 mg/dL 0.20-1.00 [facility] Comment on above: For patients on eltr ombopag therapy, use of Dimension [place] TBIL is not recommended. Chloride [Moles/Vol] 101 mmol/L 98-107 [facility] Eosinophils/100 WBC (Bld) 0.2 % 0-5 [facility] Glucose [Mass/Vol] 110 mg/dL 74-106 [facility] Comment on above: Fasting Glucose resu lt from 100 to 125 mg/dL suggests IMPAIRED HOMEOSTASIS per A.D.A. criteria. Hemoglobin (Bld) [Mass/Vol] 9.6 g/dL 12.0-15.0 [facility] Monocytes/100 WBC (Bld) 10.6 % 0-10 [facility] Neutrophils (Bld) [#/Vol] 2.6 10*3/uL 2.0-7.7 [facility] Neutrophils/100 WBC (Bld) 61.5 % 47-70 [facility] Potassium [Moles/Vol] 3.4 mmol/L 3.5-5.1 [facility] Protein [Mass/Vol] 5.4 g/dL 6.4-8.2 [facility] Sodium [Moles/Vol] 131 mmol/L 136-145 [facility] WBC (Bld) [#/Vol] 4.2 10*3/uL 4.4-11.0 [facility] Determination of erythrocyte mean corpuscular volume (MCV)Ordered By: on 11-22-2023 MCV (RBC) [Entitic vol] 89.2 fL 81-99 [facility] Erythrocyte distribution wid th ratioOrdered By: on 11-22-2023 Erythrocyte distribution width (RBC) [Ratio] 14.0 % 11.6-14.6 [facility] Erythrocyte distribution wid th standard deviationOrdered By: on 11-22-2023 Erythrocyte distribution width (RBC) [Entitic vol] 46.0 fL 35.1-43.9 [facility] Hematocrit Auto (Bld) [Volum e fraction]Ordered By: on 11-22-2023 Hematocrit (Bld) [Volume fraction] 28.8 % 37-47 [facility] Immature granulocytes/100 WB C Auto (Bld)Ordered By: White on 11-22-2023 Immature granulocytes/100 WBC (Bld) 0.200 % 0.0-0.9 [facility] Comment on above: IG% - Immature Granu locytes (promyelocytes, myelocytes and metamyelocytes) > 1% indicates that a LEFT SHIFT is Present. Iron measurement (mass/mass) Ordered By: Marty Bassett on 11-22-2023 Iron (Unsp spec) [Mass/Mass] 65 ug/dL 50-170 [facility] Laboratory - Chemistry and C hemistry - challengeOrdered By: Michelle Hunt on 11-22-2023 Albumin/Globulin [Mass ratio] 0.9 {ratio} 0.9-2.4 [facility] ALP [Catalytic activity/Vol] 57 U/L 45-117 [facility] ALT [Catalytic activity/Vol] 16 U/L 13-56 [facility] CO2 [Moles/Vol] 25.0 mmol/L 21.0-32.0 [facility] Globulin (S) [Mass/Vol] 2.9 g/dL 2.2-4.2 [facility] Urea nitrogen/Creatinine [Mass ratio] 12.3 mg/mg 10-20 [facility] Laboratory - Chemistry and C hemistry - challengeOrdered By: Marty Bassett on 11-22-2023 Cobalamin (Vitamin B12) [Mass/Vol] 353 pg/mL 211-911 [facility] Ferritin [Mass/Vol] 8 ng/mL 8-252 [facility] Laboratory - Hematology and Cell countsOrdered By: Michelle Hunt on 11-22-2023 MCH (RBC) [Entitic mass] 29.7 pg 27.0-32.0 [facility] MCHC (RBC) [Mass/Vol] 33.3 g/dL 32-36 [facility] Nucleated RBC/100 WBC (Bld) [Ratio] 0 % 0-5 [facility] Platelet mean volume (Bld) [Entitic vol] 9.7 fL 6.2-12.0 [facility] Platelets (Bld) [#/Vol] 242 10*3/uL 150-450 [facility] No Panel InformationOrdered By: Michelle Hunt on 11-22-2023 Estimated Creatinine Clearance Calc 45.54 ml/min [facility] Estimated GFR (MDRD) Amer 98 mL/min >60 [facility] Comment on above: GFR Calc Estimated GFR (MDRD) Non-Af Amer 81 mL/min >60 [facility] Comment on above: Non- GFR Calc No Panel InformationOrdered By: Marty Bassett on 11-22-2023 Folate 12.30 ng/mL 3.1-55.4 [facility] Total Iron Binding Capacity 381 ug/dL 250-450 [facility] RBC Auto (Bld) [#/Vol]Ordere d By: Michelle Hunt on 11-22-2023 RBC (Bld) [#/Vol] 3.23 10*6/uL 4.2-5.4 [facility] Serum or plasma calcium glo urement (mass/volume)Ordered By: Michelle Hunt on 11-22-2023 Calcium [Mass/Vol] 7.1 mg/dL 8.5-10.1 [facility] Serum or plasma creatinine m easurement (mass/volume)Ordered By: Michelle Hunt on 11-22-2023 Creatinine [Mass/Vol] 0.73 mg/dL 0.55-1.02 [facility] Comment on above: The validity of the calculated GFR & GFRAA in patients over 70 years has not been determined. Clinical correlation is essential. Serum or plasma iron saturat ion measurement (mass fraction)Ordered By: Marty Bassett on 11-22-2023 Iron saturation [Mass fraction] 17.1 % 15.0-55.0 [facility] Serum or plasma urea nitroge n measurement (mass/volume)Ordered By: Michelle Hunt on 11-22-2023 Urea nitrogen [Mass/Vol] 9 mg/dL 7-18 [facility] Thin prep Papanicolaou smear with manual screeningOrdered By: Michelle Hunt on 11-22-2023 Thin prep Papanicolaou smear with manual screening 2.5 g/dL 3.2-5.0 [facility] Thin prep Papanicolaou smear with manual screening 17 U/L 15-37 [facility] Thin prep Papanicolaou smear with manual screening 5 5-15 [facility] Thin prep Papanicolaou smear with manual screeningOrdered By: Marty Bassett on 11-22-2023 Thin prep Papanicolaou smear with manual screening 265 mOsm/KG 280-301 [facility] Absolute lymphocyte countOrd ered By: ED PROVIDER on 03-09-2024 Lymphocytes Auto (Unsp spec) [#/Vol] 1.55 10*3/uL 0.83-4.51 [facility] Automated lymphocyte count a s percentage of total leukocytesOrdered By: ED PROVIDER on 11-21-2023 Lymphocytes/100 WBC Auto (Unsp spec) 32.0 % 19-41 [facility] Basophil percentageOrdered B y: Remus Ungur on 11-21-2023 Basophil percentage 0 SEEN /hpf 0-5 [facility] Basophil percentageOrdered B y: Michelle White on 11-21-2023 Basophil percentage 2.5 mg/dL 2.5-4.9 [facility] Basophil percentageOrdered B y: ED PROVIDER on 11-21-2023 Basophils/100 WBC (Bld) 0.6 % 0-1 [facility] Bilirubin [Mass/Vol] 0.90 mg/dL 0.20-1.00 [facility] Comment on above: For patients on eltr ombopag therapy, use of Dimension [place] TBIL is not recommended. Chloride [Moles/Vol] 94 mmol/L 98-107 [facility] Eosinophils/100 WBC (Bld) 0.4 % 0-5 [facility] Glucose [Mass/Vol] 145 mg/dL 74-106 [facility] Comment on above: Fasting Glucose resu lt greater than or equal to 126 mg/dL suggests DIABETES MELLITUS per A.D.A. criteria. Hemoglobin (Bld) [Mass/Vol] 12.3 g/dL 12.0-15.0 [facility] Monocytes/100 WBC (Bld) 6.2 % 0-10 [facility] Neutrophils (Bld) [#/Vol] 2.9 10*3/uL 2.0-7.7 [facility] Neutrophils/100 WBC (Bld) 60.6 % 47-70 [facility] Potassium [Moles/Vol] 3.6 mmol/L 3.5-5.1 [facility] Protein [Mass/Vol] 7.3 g/dL 6.4-8.2 [facility] Sodium [Moles/Vol] 126 mmol/L 136-145 [facility] WBC (Bld) [#/Vol] 4.8 10*3/uL 4.4-11.0 [facility] Bilirubin Test strip Ql (U)O rdered By: Viet Ortez on 11-21-2023 Bilirubin Ql (U) Negative Negative [facility] Determination of erythrocyte mean corpuscular volume (MCV)Ordered By: ED PROVIDER on 11-21-2023 MCV (RBC) [Entitic vol] 86.9 fL 81-99 [facility] Erythrocyte distribution wid th ratioOrdered By: ED PROVIDER on 11-21-2023 Erythrocyte distribution width (RBC) [Ratio] 14.0 % 11.6-14.6 [facility] Erythrocyte distribution wid th standard deviationOrdered By: ED PROVIDER on 11-21-2023 Erythrocyte distribution width (RBC) [Entitic vol] 44.6 fL 35.1-43.9 [facility] Hematocrit Auto (Bld) [Volum e fraction]Ordered By: ED PROVIDER on 11-21-2023 Hematocrit (Bld) [Volume fraction] 36.4 % 37-47 [facility] Immature granulocytes/100 WB C Auto (Bld)Ordered By: ED PROVIDER on 11-21-2023 Immature granulocytes/100 WBC (Bld) 0.200 % 0.0-0.9 [facility] Comment on above: IG% - Immature Granu locytes (promyelocytes, myelocytes and metamyelocytes) > 1% indicates that a LEFT SHIFT is Present. Ketones Test strip Ql (U)Ord ered By: Viet Ortez on 11-21-2023 Ketones Ql (U) 15 mg/dl Negative [facility] Laboratory - Chemistry and C hemistry - challengeOrdered By: Marty Bassett on 11-21-2023 Sodium (U) [Moles/Vol] 147 mmol/L Not Establ. [facility] Laboratory - Chemistry and C hemistry - challengeOrdered By: ED PROVIDER on 11-21-2023 Albumin/Globulin [Mass ratio] 0.8 {ratio} 0.9-2.4 [facility] ALP [Catalytic activity/Vol] 78 U/L 45-117 [facility] ALT [Catalytic activity/Vol] 21 U/L 13-56 [facility] CO2 [Moles/Vol] 23.0 mmol/L 21.0-32.0 [facility] Globulin (S) [Mass/Vol] 4.0 g/dL 2.2-4.2 [facility] Urea nitrogen/Creatinine [Mass ratio] 13.9 mg/mg 10-20 [facility] Laboratory - Chemistry and C hemistry - challengeOrdered By: Michelle Hunt on 11-21-2023 Magnesium [Mass/Vol] 2.1 mg/dL 1.6-2.6 [facility] Laboratory - Hematology and Cell countsOrdered By: ED PROVIDER on 11-21-2023 MCH (RBC) [Entitic mass] 29.4 pg 27.0-32.0 [facility] MCHC (RBC) [Mass/Vol] 33.8 g/dL 32-36 [facility] Nucleated RBC/100 WBC (Bld) [Ratio] 0 % 0-5 [facility] Platelet mean volume (Bld) [Entitic vol] 8.9 fL 6.2-12.0 [facility] Platelets (Bld) [#/Vol] 278 10*3/uL 150-450 [facility] Mucus LM Ql (Urine sed)Order ed By: Viet Ortez on 11-21-2023 Mucus Ql (Urine sed) 0 SEEN /hpf [facility] Nitrite Test strip Ql (U)Ord ered By: Viet Ortez on 11-21-2023 Nitrite Ql (U) Negative Negative [facility] No Panel InformationOrdered By: Viet Ortez on 11-21-2023 Urine RBC 0 SEEN /hpf 0-5 [facility] No Panel InformationOrdered By: ED PROVIDER on 11-21-2023 Estimated Creatinine Clearance Calc 45.81 ml/min [facility] Estimated GFR (MDRD) Amer 90 mL/min >60 [facility] Comment on above: GFR Calc Estimated GFR (MDRD) Non-Af Amer 74 mL/min >60 [facility] Comment on above: Non- GFR Calc Protein Test strip Ql (U)Ord ered By: Viet Ortez on 11-21-2023 Protein Ql (U) 15 mg/dl Negative [facility] RBC Auto (Bld) [#/Vol]Ordere d By: ED PROVIDER on 11-21-2023 RBC (Bld) [#/Vol] 4.19 10*6/uL 4.2-5.4 [facility] Serum or plasma calcium glo urement (mass/volume)Ordered By: ED PROVIDER on 11-21-2023 Calcium [Mass/Vol] 8.5 mg/dL 8.5-10.1 [facility] Serum or plasma creatinine m easurement (mass/volume)Ordered By: ED PROVIDER on 11-21-2023 Creatinine [Mass/Vol] 0.79 mg/dL 0.55-1.02 [facility] Comment on above: The validity of the calculated GFR & GFRAA in patients over 70 years has not been determined. Clinical correlation is essential. Serum or plasma urea nitroge n measurement (mass/volume)Ordered By: ED PROVIDER on 11-21-2023 Urea nitrogen [Mass/Vol] 11 mg/dL 7-18 [facility] Serum procalcitonin measurem entOrdered By: Michelle Hunt on 11-21-2023 Procalcitonin [Mass/Vol] 0.04 ng/mL 0.00-0.09 [facility] Comment on above: A procalcitonin (PCT ) [...] Ql (Urine sed) 0 SEEN /hpf 5-10 [facility] Thin prep Papanicolaou smear with manual screeningOrdered By: ED PROVIDER on 11-21-2023 Thin prep Papanicolaou smear with manual screening 3.3 g/dL 3.2-5.0 [facility] Thin prep Papanicolaou smear with manual screening 20 U/L 15-37 [facility] Thin prep Papanicolaou smear with manual screening 9 5-15 [facility] Urine blood detectionOrdered By: Viet Ortez on 11-21-2023 RBC Ql (U) 10 /ul Negative [facility] Urine clarityOrdered By: Loraine Ortez on 11-21-2023 Clarity (U) Clear Clear [facility] Urine color determinationOrd ered By: Viet Ortez on 11-21-2023 Color (U) Yellow Yellow [facility] Urine glucose detectionOrder ed By: Viet Ortez on 11-21-2023 Glucose Ql (U) 100 mg/dl Normal [facility] Urine leukocyte esterase det ection by dipstickOrdered By: Viet Ortez on 11-21-2023 Leukocyte esterase Test strip Ql (U) Negative Negative [facility] Urine osmolality measurement Ordered By: Marty Bassett on 11-21-2023 Osmolality (U) [Osmolality] 367 mOsm/KG >50 [facility] Comment on above: Normal Urine Referen ce Ranges Random: 50 - 1200 mOsm/kg H20 depending on fluid intake Random: >850 mOsm/kg after 12 hour fluid restriction 24 hour: ~300 - 900 mOsm/kg H2O Urine pHOrdered By: Viet gordillo on 11-21-2023 pH (U) 8.0 [pH] 5.0 - 8.0 [facility] Urine sediment bacteria coun t by microscopy (number/high power field)Ordered By: Viet Ortez on 11-21-2023 Bacteria LM.HPF (Urine sed) [#/Area] 0 /[HPF] None Seen [facility] Urine specific gravity measu rementOrdered By: Viet Ortez on 11-21-2023 Specific gravity (U) [Rel density] 1.015 1.002-1.030 [facility] Urine urobilinogen measureme ntOrdered By: Viet Ortez on 11-21-2023 Urobilinogen Ql (U) Normal mg/dl Normal [facility] Respiratory pathogens detect ion panel by molecular detection methodOrdered By: Michelle Hunt on 11-20-2023 Respiratory pathogens DNA and RNA panel MIGUEL ANGEL+probe (Resp) [facility] CT Head WO contraston 2023 [facility] Absolute lymphocyte countOrd ered By: Tomeka Ascencio on 10-01-2023 Lymphocytes Auto (Unsp spec) [#/Vol] 1.70 10*3/uL 0.83-4.51 [facility] Automated lymphocyte count a s percentage of total leukocytesOrdered By: Tomeka Ascencio on 10-01-2023 Lymphocytes/100 WBC Auto (Unsp spec) 38.3 % 19-41 [facility] Basophil percentageOrdered B y: Tomeka Ascencio on 10-01-2023 Basophils/100 WBC (Bld) 0.9 % 0-1 [facility] Bilirubin [Mass/Vol] 0.60 mg/dL 0.20-1.00 [facility] Comment on above: For patients on eltr ombopag therapy, use of Dimension [place] TBIL is not recommended. Chloride [Moles/Vol] 102 mmol/L 98-107 [facility] Eosinophils/100 WBC (Bld) 2.3 % 0-5 [facility] Glucose [Mass/Vol] 95 mg/dL 74-106 [facility] Hemoglobin (Bld) [Mass/Vol] 11.6 g/dL 12.0-15.0 [facility] Monocytes/100 WBC (Bld) 11.0 % 0-10 [facility] Neutrophils (Bld) [#/Vol] 2.1 10*3/uL 2.0-7.7 [facility] Neutrophils/100 WBC (Bld) 47.5 % 47-70 [facility] Potassium [Moles/Vol] 4.0 mmol/L 3.5-5.1 [facility] Protein [Mass/Vol] 6.9 g/dL 6.4-8.2 [facility] Sodium [Moles/Vol] 132 mmol/L 136-145 [facility] WBC (Bld) [#/Vol] 4.4 10*3/uL 4.4-11.0 [facility] Determination of erythrocyte mean corpuscular volume (MCV)Ordered By: Tomeka Ascencio on 10-01-2023 MCV (RBC) [Entitic vol] 93.0 fL 81-99 [facility] Erythrocyte distribution wid th ratioOrdered By: Tomeka Ascencio on 10-01-2023 Erythrocyte distribution width (RBC) [Ratio] 14.6 % 11.6-14.6 [facility] Erythrocyte distribution wid th standard deviationOrdered By: Tomeka Ascencio on 10-01-2023 Erythrocyte distribution width (RBC) [Entitic vol] 49.8 fL 35.1-43.9 [facility] Hematocrit Auto (Bld) [Volum e fraction]Ordered By: Tomeka Ascencio on 10-01-2023 Hematocrit (Bld) [Volume fraction] 34.7 % 37-47 [facility] Immature granulocytes/100 WB C Auto (Bld)Ordered By: Tomekadeo Ascencio on 10-01-2023 Immature granulocytes/100 WBC (Bld) 0.000 % 0.0-0.9 [facility] Comment on above: IG% - Immature Granu locytes (promyelocytes, myelocytes and metamyelocytes) > 1% indicates that a LEFT SHIFT is Present. Laboratory - Chemistry and C hemistry - challengeOrdered By: Tomeka Ascencio on 10-01-2023 Albumin/Globulin [Mass ratio] 0.9 {ratio} 0.9-2.4 [facility] ALP [Catalytic activity/Vol] 73 U/L 45-117 [facility] ALT [Catalytic activity/Vol] 22 U/L 13-56 [facility] CO2 [Moles/Vol] 26.0 mmol/L 21.0-32.0 [facility] Globulin (S) [Mass/Vol] 3.7 g/dL 2.2-4.2 [facility] Urea nitrogen/Creatinine [Mass ratio] 15.5 mg/mg 10-20 [facility] Laboratory - Hematology and Cell countsOrdered By: Tomeka Ascencio on 10-01-2023 MCH (RBC) [Entitic mass] 31.1 pg 27.0-32.0 [facility] MCHC (RBC) [Mass/Vol] 33.4 g/dL 32-36 [facility] Nucleated RBC/100 WBC (Bld) [Ratio] 0 % 0-5 [facility] Platelets (Bld) [#/Vol] 243 10*3/uL 150-450 [facility] No Panel InformationOrdered By: Tomeka Ascencio on 10-01-2023 Estimated Creatinine Clearance Calc 36.37 ml/min [facility] Estimated GFR (MDRD) Amer 66 mL/min >60 [facility] Comment on above: GFR Calc Estimated GFR (MDRD) Non-Af Amer 55 mL/min >60 [facility] Comment on above: Non- GFR Calc Platelet mean volume Minor-Ec ker (Bld) [Entitic vol]Ordered By: Tomeka Ascencio on 10-01-2023 Platelet mean volume (Bld) [Entitic vol] 9.1 fL 6.2-12.0 [facility] RBC Auto (Bld) [#/Vol]Ordere d By: Tomeka Ascencio on 10-01-2023 RBC (Bld) [#/Vol] 3.73 10*6/uL 4.2-5.4 [facility] Serum or plasma calcium glo urement (mass/volume)Ordered By: Tomeka Ascencio on 10-01-2023 Calcium [Mass/Vol] 8.3 mg/dL 8.5-10.1 [facility] Serum or plasma creatinine m easurement (mass/volume)Ordered By: Tomeka Ascencio on 10-01-2023 Creatinine [Mass/Vol] 1.03 mg/dL 0.55-1.02 [facility] Comment on above: The validity of the calculated GFR & GFRAA in patients over 70 years has not been determined. Clinical correlation is essential. Serum or plasma urea nitroge n measurement (mass/volume)Ordered By: Tomeka Ascencio on 10-01-2023 Urea nitrogen [Mass/Vol] 16 mg/dL -18 [facility] Thin prep Papanicolaou smear with manual screeningOrdered By: Tomeka Ascencio on 10-01-2023 Thin prep Papanicolaou smear with manual screening 3.2 g/dL 3.2-5.0 [facility] Thin prep Papanicolaou smear with manual screening 24 U/L 15-37 [facility] Thin prep Papanicolaou smear with manual screening 4 5-15 [facility] Albumin Elph [Mass/Vol]Order ed By: Erick Blanca on 09-23-2023 Albumin [Mass/Vol] 3.2 g/dL 2.9-4.4 [facility] Basophil percentageOrdered B y: Erick Blanca on 09-23-2023 Basophil percentage Comment . [facility] Comment on above: No monoclonality det ected.Performed at: [facility] [id number] [place], [place] [id number] Director: Nicola Alex PhD, Phone: [phone] Interpretation of serum or p lasma protein pattern by immunofixation (narrative resultOrdered By: Erick Blanca on 09-23-2023 Protein Fractions Immunofixation Inocencio [Interp] Not Observed g/dL Not Observed [facility] No Panel InformationOrdered By: Erick Blanca on 09-23-2023 Addendum Document Comment . [facility] Comment on above: Protein electrophore sis scan will follow via computer,mail, or speech therapist technician delivery. Serum [id number] measu rement by electrophoresisOrdered By: Erick Blanac on 09-23-2023 Alpha 1 globulin Elph [Mass/Vol] 0.3 g/dL 0.0-0.4 [facility] Alpha 1 globulin Elph [Mass/Vol] 0.7 g/dL 0.4-1.0 [facility] Serum globulin measurement ( mass/volume)Ordered By: Erick Blanca on 09-23-2023 Globulin (S) [Mass/Vol] 3.0 g/dL 2.2-3.9 [facility] Serum or plasma IgA measurem ent (mass/volume)Ordered By: Erick Blanca on 09-23-2023 IgA [Mass/Vol] 247 mg/dL 64-422 [facility] Serum or plasma IgG measurem ent (mass/volume)Ordered By: Erick Blanca on 09-23-2023 IgG [Mass/Vol] 989 mg/dL 586-1602 [facility] Serum or plasma IgM measurem ent (mass/volume)Ordered By: Erick Blanca on 09-23-2023 IgM [Mass/Vol] 170 mg/dL 26-217 [facility] Serum or plasma beta globuli n measurement by electrophoresis (mass/volume)Ordered By: Erick Blanca on 09-23-2023 Beta globulin Elph [Mass/Vol] 0.9 g/dL 0.7-1.3 [facility] Serum or plasma gamma globul in measurement by electrophoresis (mass/volume)Ordered By: Erickluis Blanca on 09-23-2023 Gamma globulin Elph [Mass/Vol] 1.1 g/dL 0.4-1.8 [facility] Serum or plasma immunoelectr ophoresis interpretation (nominal result)Ordered By: Erick Blanca on 09-23-2023 Interpretation IEP [Interp] Comment . [facility] Comment on above: No monoclonality det ected. Thin prep Papanicolaou smear with manual screeningOrdered By: Erick Blanca on 09-23-2023 Thin prep Papanicolaou smear with manual screening 1.1 0.7-1.7 [facility] Total protein bloodOrdered B y: Erick Blanca on 09-23-2023 Protein [Mass/Vol] 6.2 g/dL 6.0-8.5 [facility] Absolute lymphocyte countOrd ered By: Cammie Barajas on 08-29-2023 Lymphocytes Auto (Unsp spec) [#/Vol] 1.53 10*3/uL 0.83-4.51 [facility] Basophil percentageOrdered B y: Cammie Barajas on 08-29-2023 Basophils/100 WBC (Bld) 1.0 % 0-1 [facility] Bilirubin [Mass/Vol] 0.90 mg/dL 0.20-1.00 [facility] Comment on above: For patients on eltr ombopag therapy, use of Dimension [place] TBIL is not recommended. Chloride [Moles/Vol] 96 mmol/L 98-107 [facility] Eosinophils/100 WBC (Bld) 1.0 % 0-5 [facility] Glucose [Mass/Vol] 134 mg/dL 74-106 [facility] Comment on above: Fasting Glucose resu lt greater than or equal to 126 mg/dL suggests DIABETES MELLITUS per A.D.A. criteria. Neutrophils (Bld) [#/Vol] 1.8 10*3/uL 2.0-7.7 [facility] Neutrophils/100 WBC (Bld) 45.1 % 47-70 [facility] Potassium [Moles/Vol] 3.5 mmol/L 3.5-5.1 [facility] Protein [Mass/Vol] 6.8 g/dL 6.4-8.2 [facility] Sodium [Moles/Vol] 131 mmol/L 136-145 [facility] WBC (Bld) [#/Vol] 4.0 10*3/uL 4.4-11.0 [facility] Blood erythrocytes count (nu mber/volume)Ordered By: Cammie Barajas on 08-29-2023 RBC (Bld) [#/Vol] 3.97 10*6/uL 4.2-5.4 [facility] Blood hemoglobin measurement (mass/volume)Ordered By: Cammie Barajas on 08-29-2023 Hemoglobin (Bld) [Mass/Vol] 12.0 g/dL 12.0-15.0 [facility] Blood lymphocytes/100 leukoc ytesOrdered By: Cammie Barajas on 08-29-2023 Lymphocytes/100 WBC (Bld) 38.3 % 19-41 [facility] Blood monocytes/100 leukocyt esOrdered By: Cammie Barajas on 08-29-2023 Monocytes/100 WBC (Bld) 14.3 % 0-10 [facility] Blood platelet mean volumeOr dered By: Cammie Barajas on 08-29-2023 Platelet mean volume (Bld) [Entitic vol] 9.5 fL 6.2-12.0 [facility] Determination of erythrocyte mean corpuscular volume (MCV)Ordered By: Cammie Barajas on 08-29-2023 MCV (RBC) [Entitic vol] 90.9 fL 81-99 [facility] Hematocrit Auto (Bld) [Volum e fraction]Ordered By: Cammie Barajas on 08-29-2023 Hematocrit (Bld) [Volume fraction] 36.1 % 37-47 [facility] Laboratory - Chemistry and C hemistry - challengeOrdered By: Cammie Barajas on 08-29-2023 ALP [Catalytic activity/Vol] 59 U/L 45-117 [facility] ALT [Catalytic activity/Vol] 22 U/L 13-56 [facility] CO2 [Moles/Vol] 28.0 mmol/L 21.0-32.0 [facility] Globulin (S) [Mass/Vol] 3.6 g/dL 2.2-4.2 [facility] Urea nitrogen/Creatinine [Mass ratio] 16.3 mg/mg 10-20 [facility] Laboratory - Hematology and Cell countsOrdered By: Cammie Barajas on 08-29-2023 Erythrocyte distribution width (RBC) [Entitic vol] 44.8 fL 35.1-43.9 [facility] Erythrocyte distribution width (RBC) [Ratio] 13.2 % 11.6-14.6 [facility] Immature granulocytes/100 WBC (Bld) 0.300 % 0.0-0.9 [facility] Comment on above: IG% - Immature Granu locytes (promyelocytes, myelocytes and metamyelocytes) > 1% indicates that a LEFT SHIFT is Present. MCH (RBC) [Entitic mass] 30.2 pg 27.0-32.0 [facility] Nucleated RBC/100 WBC (Bld) [Ratio] 0 % 0-5 [facility] MCHC Auto (RBC) [Mass/Vol]Or dered By: Cammie Barajas on 08-29-2023 MCHC (RBC) [Mass/Vol] 33.2 g/dL 32-36 [facility] No Panel InformationOrdered By: Cammie Barajas on 08-29-2023 Estimated GFR (MDRD) Amer 89 mL/min >60 [facility] Comment on above: GFR Calc Estimated GFR (MDRD) Non-Af Amer 73 mL/min >60 [facility] Comment on above: Non- GFR Calc Troponin I High Sensitivity 4 pg/mL 3.0-54.0 [facility] Comment on above: Please Note: New Latricia t Units and Gender Specific Reference Ranges. For more information see Policy Stat Procedure [place] High Sensitivity Troponin (TNIH) and attachments. Platelets bldOrdered By: Maximiliano Barajas on 08-29-2023 Platelets (Bld) [#/Vol] 289 10*3/uL 150-450 [facility] Serum or plasma albumin glo urement (mass/volume)Ordered By: Cammie Barajas on 08-29-2023 Albumin [Mass/Vol] 3.2 g/dL 3.2-5.0 [facility] Serum or plasma albumin/glob ulin mass ratioOrdered By: Cammie Barajas on 08-29-2023 Albumin/Globulin [Mass ratio] 0.9 {ratio} 0.9-2.4 [facility] Serum or plasma calcium glo urement (mass/volume)Ordered By: Cammie Barajas on 08-29-2023 Calcium [Mass/Vol] 8.2 mg/dL 8.5-10.1 [facility] Serum or plasma creatinine m easurement (mass/volume)Ordered By: Cammie Barajas on 08-29-2023 Creatinine [Mass/Vol] 0.80 mg/dL 0.55-1.02 [facility] Comment on above: The validity of the calculated GFR & GFRAA in patients over 70 years has not been determined. Clinical correlation is essential. Serum or plasma urea nitroge n measurement (mass/volume)Ordered By: Cammie Barajas on 08-29-2023 Urea nitrogen [Mass/Vol] 13 mg/dL 7-18 [facility] Thin prep Papanicolaou smear with manual screeningOrdered By: Cammieelizabeth Barajas on 08-29-2023 Thin prep Papanicolaou smear with manual screening 21 U/L 15-37 [facility] Thin prep Papanicolaou smear with manual screening 7 5-15 [facility] Absolute lymphocyte countOrd ered By: Bakari Dietrich on 07-23-2023 Lymphocytes Auto (Unsp spec) [#/Vol] 1.23 10*3/uL 0.83-4.51 [facility] Basophil percentageOrdered B y: Bakari Dietrich on 07-23-2023 Basophils/100 WBC (Bld) 1.2 % 0-1 [facility] Chloride [Moles/Vol] 99 mmol/L 98-107 [facility] Eosinophils/100 WBC (Bld) 2.0 % 0-5 [facility] Glucose [Mass/Vol] 95 mg/dL 74-106 [facility] Neutrophils (Bld) [#/Vol] 1.6 10*3/uL 2.0-7.7 [facility] Neutrophils/100 WBC (Bld) 46.0 % 47-70 [facility] Potassium [Moles/Vol] 4.3 mmol/L 3.5-5.1 [facility] Sodium [Moles/Vol] 130 mmol/L 136-145 [facility] WBC (Bld) [#/Vol] 3.5 10*3/uL 4.4-11.0 [facility] Blood erythrocytes count (nu mber/volume)Ordered By: Bakari Dietrich on 07-23-2023 RBC (Bld) [#/Vol] 3.83 10*6/uL 4.2-5.4 [facility] Blood hemoglobin measurement (mass/volume)Ordered By: Bakari Dietrich on 07-23-2023 Hemoglobin (Bld) [Mass/Vol] 11.7 g/dL 12.0-15.0 [facility] Blood lymphocytes/100 leukoc ytesOrdered By: Bakari Dietrich on 07-23-2023 Lymphocytes/100 WBC (Bld) 35.7 % 19-41 [facility] Blood monocytes/100 leukocyt esOrdered By: Bakari Dietrich on 07-23-2023 Monocytes/100 WBC (Bld) 14.8 % 0-10 [facility] Blood platelet mean volumeOr dered By: Bakari Dietrich on 07-23-2023 Platelet mean volume (Bld) [Entitic vol] 9.1 fL 6.2-12.0 [facility] Determination of erythrocyte mean corpuscular volume (MCV)Ordered By: Bakari Dietrich on 07-23-2023 MCV (RBC) [Entitic vol] 93.0 fL 81-99 [facility] Hematocrit Auto (Bld) [Volum e fraction]Ordered By: Bakari Dietrich on 07-23-2023 Hematocrit (Bld) [Volume fraction] 35.6 % 37-47 [facility] Laboratory - Chemistry and C hemistry - challengeOrdered By: Bakari Dietrich on 07-23-2023 CO2 [Moles/Vol] 30.0 mmol/L 21.0-32.0 [facility] Urea nitrogen/Creatinine [Mass ratio] 17.3 mg/mg 10-20 [facility] Laboratory - Hematology and Cell countsOrdered By: Bakari Dietrich on 07-23-2023 Erythrocyte distribution width (RBC) [Entitic vol] 45.9 fL 35.1-43.9 [facility] Erythrocyte distribution width (RBC) [Ratio] 13.4 % 11.6-14.6 [facility] Immature granulocytes/100 WBC (Bld) 0.300 % 0.0-0.9 [facility] Comment on above: IG% - Immature Granu locytes (promyelocytes, myelocytes and metamyelocytes) > 1% indicates that a LEFT SHIFT is Present. MCH (RBC) [Entitic mass] 30.5 pg 27.0-32.0 [facility] Nucleated RBC/100 WBC (Bld) [Ratio] 0 % 0-5 [facility] MCHC Auto (RBC) [Mass/Vol]Or dered By: Bakari Dietrich on 07-23-2023 MCHC (RBC) [Mass/Vol] 32.9 g/dL 32-36 [facility] No Panel InformationOrdered By: Bakari Dietrich on 07-23-2023 Estimated Creatinine Clearance Calc 44.03 ml/min [facility] Estimated GFR (MDRD) Amer 81 mL/min >60 [facility] Comment on above: GFR Calc Estimated GFR (MDRD) Non-Af Amer 67 mL/min >60 [facility] Comment on above: Non- GFR Calc Platelets bldOrdered By: Arik Dietrich on 07-23-2023 Platelets (Bld) [#/Vol] 233 10*3/uL 150-450 [facility] Serum or plasma calcium glo urement (mass/volume)Ordered By: Bakari Dietrich on 07-23-2023 Calcium [Mass/Vol] 8.1 mg/dL 8.5-10.1 [facility] Serum or plasma creatinine m easurement (mass/volume)Ordered By: Bakari Dietrich on 07-23-2023 Creatinine [Mass/Vol] 0.87 mg/dL 0.55-1.02 [facility] Comment on above: The validity of the calculated GFR & GFRAA in patients over 70 years has not been determined. Clinical correlation is essential. Serum or plasma urea nitroge n measurement (mass/volume)Ordered By: Bakari Dietrich on 07-23-2023 Urea nitrogen [Mass/Vol] 15 mg/dL 7-18 [facility] Thin prep Papanicolaou smear with manual screeningOrdered By: Bakari Dietrich on 07-23-2023 Thin prep Papanicolaou smear with manual screening 1 5-15 [facility] Absolute lymphocyte countOrd ered By: Tanesha Britt on 07-15-2023 Lymphocytes Auto (Unsp spec) [#/Vol] 1.49 10*3/uL 0.83-4.51 [facility] Basophil percentageOrdered B y: Tanesha Britt on 07-15-2023 Basophils/100 WBC (Bld) 1.1 % 0-1 [facility] Chloride [Moles/Vol] 97 mmol/L 98-107 [facility] Eosinophils/100 WBC (Bld) 2.8 % 0-5 [facility] Glucose [Mass/Vol] 88 mg/dL 74-106 [facility] Neutrophils (Bld) [#/Vol] 1.4 10*3/uL 2.0-7.7 [facility] Neutrophils/100 WBC (Bld) 39.6 % 47-70 [facility] Potassium [Moles/Vol] 4.4 mmol/L 3.5-5.1 [facility] Sodium [Moles/Vol] 131 mmol/L 136-145 [facility] WBC (Bld) [#/Vol] 3.6 10*3/uL 4.4-11.0 [facility] Blood erythrocytes count (nu mber/volume)Ordered By: Tanesha Britt on 07-15-2023 RBC (Bld) [#/Vol] 3.93 10*6/uL 4.2-5.4 [facility] Blood hemoglobin measurement (mass/volume)Ordered By: Tanesha Britt on 07-15-2023 Hemoglobin (Bld) [Mass/Vol] 12.3 g/dL 12.0-15.0 [facility] Blood lymphocytes/100 leukoc ytesOrdered By: Tanesha Britt on 07-15-2023 Lymphocytes/100 WBC (Bld) 41.3 % 19-41 [facility] Blood monocytes/100 leukocyt esOrdered By: Tanesha Britt on 07-15-2023 Monocytes/100 WBC (Bld) 15.2 % 0-10 [facility] Blood platelet mean volumeOr dered By: Tanesha Britt on 07-15-2023 Platelet mean volume (Bld) [Entitic vol] 8.7 fL 6.2-12.0 [facility] Determination of erythrocyte mean corpuscular volume (MCV)Ordered By: Tanesha Britt on 07-15-2023 MCV (RBC) [Entitic vol] 92.9 fL 81-99 [facility] Hematocrit Auto (Bld) [Volum e fraction]Ordered By: Tanesha Britt on 07-15-2023 Hematocrit (Bld) [Volume fraction] 36.5 % 37-47 [facility] Laboratory - Chemistry and C hemistry - challengeOrdered By: Tanesha Britt on 07-15-2023 CO2 [Moles/Vol] 28.0 mmol/L 21.0-32.0 [facility] Urea nitrogen/Creatinine [Mass ratio] 16.4 mg/mg 10-20 [facility] Laboratory - Hematology and Cell countsOrdered By: Tanesha Britt on 07-15-2023 Erythrocyte distribution width (RBC) [Entitic vol] 45.9 fL 35.1-43.9 [facility] Erythrocyte distribution width (RBC) [Ratio] 13.4 % 11.6-14.6 [facility] Immature granulocytes/100 WBC (Bld) 0.000 % 0.0-0.9 [facility] Comment on above: IG% - Immature Granu locytes (promyelocytes, myelocytes and metamyelocytes) > 1% indicates that a LEFT SHIFT is Present. MCH (RBC) [Entitic mass] 31.3 pg 27.0-32.0 [facility] Nucleated RBC/100 WBC (Bld) [Ratio] 0 % 0-5 [facility] MCHC Auto (RBC) [Mass/Vol]Or dered By: Tanesha Britt on 07-15-2023 MCHC (RBC) [Mass/Vol] 33.7 g/dL 32-36 [facility] No Panel InformationOrdered By: Tanesha Britt on 07-15-2023 Estimated GFR (MDRD) Amer 76 mL/min >60 [facility] Comment on above: GFR Calc Estimated GFR (MDRD) Non-Af Amer 62 mL/min >60 [facility] Comment on above: Non- GFR Calc Platelets bldOrdered By: Aura Britt on 07-15-2023 Platelets (Bld) [#/Vol] 240 10*3/uL 150-450 [facility] Serum or plasma calcium glo urement (mass/volume)Ordered By: Tanesha Britt on 07-15-2023 Calcium [Mass/Vol] 8.5 mg/dL 8.5-10.1 [facility] Serum or plasma creatinine m easurement (mass/volume)Ordered By: Tanesha Britt on 07-15-2023 Creatinine [Mass/Vol] 0.92 mg/dL 0.55-1.02 [facility] Comment on above: The validity of the calculated GFR & GFRAA in patients over 70 years has not been determined. Clinical correlation is essential. Serum or plasma urea nitroge n measurement (mass/volume)Ordered By: Tanesha Britt on 07-15-2023 Urea nitrogen [Mass/Vol] 15 mg/dL 7-18 [facility] Thin prep Papanicolaou smear with manual screeningOrdered By: Tanesha Britt on 07-15-2023 Thin prep Papanicolaou smear with manual screening 6 5-15 [facility] Basophil percentageOrdered B y: Eagle Enciso on 05-20-2023 Chloride [Moles/Vol] 94 mmol/L 98-107 [facility] Glucose [Mass/Vol] 82 mg/dL 74-106 [facility] Potassium [Moles/Vol] 4.1 mmol/L 3.5-5.1 [facility] Sodium [Moles/Vol] 126 mmol/L 136-145 [facility] Laboratory - Chemistry and C hemistry - challengeOrdered By: Eagle Enciso on 05-20-2023 CO2 [Moles/Vol] 26.0 mmol/L 21.0-32.0 [facility] Urea nitrogen/Creatinine [Mass ratio] 23.3 mg/mg 10-20 [facility] No Panel InformationOrdered By: Eagle Enciso on 05-20-2023 Estimated GFR (MDRD) Amer 87 mL/min >60 [facility] Comment on above: GFR Calc Estimated GFR (MDRD) Non-Af Amer 72 mL/min >60 [facility] Comment on above: Non- GFR Calc Serum or plasma calcium glo urement (mass/volume)Ordered By: Eagle Enciso on 05-20-2023 Calcium [Mass/Vol] 8.4 mg/dL 8.5-10.1 [facility] Serum or plasma creatinine m easurement (mass/volume)Ordered By: Eagle Enciso on 05-20-2023 Creatinine [Mass/Vol] 0.81 mg/dL 0.55-1.02 [facility] Comment on above: The validity of the calculated GFR & GFRAA in patients over 70 years has not been determined. Clinical correlation is essential. Serum or plasma urea nitroge n measurement (mass/volume)Ordered By: Eagle Enciso on 05-20-2023 Urea nitrogen [Mass/Vol] 19 mg/dL 7-18 [facility] Thin prep Papanicolaou smear with manual screeningOrdered By: Eagle Enciso on 05-20-2023 Thin prep Papanicolaou smear with manual screening 6 5-15 [facility] Basophil percentageOrdered B y: Cammie Barajas on 04-25-2023 Chloride [Moles/Vol] 95 mmol/L 98-107 [facility] Glucose [Mass/Vol] 144 mg/dL 74-106 [facility] Comment on above: Fasting Glucose resu lt greater than or equal to 126 mg/dL suggests DIABETES MELLITUS per A.D.A. criteria. Potassium [Moles/Vol] 3.6 mmol/L 3.5-5.1 [facility] Sodium [Moles/Vol] 128 mmol/L 136-145 [facility] Laboratory - Chemistry and C hemistry - challengeOrdered By: Cammie Barajas on 04-25-2023 CO2 [Moles/Vol] 25.0 mmol/L 21.0-32.0 [facility] Urea nitrogen/Creatinine [Mass ratio] 17.8 mg/mg 10-20 [facility] No Panel InformationOrdered By: Cammie Barajas on 04-25-2023 Estimated Creatinine Clearance Calc 37.09 ml/min [facility] Estimated GFR (MDRD) Amer 98 mL/min >60 [facility] Comment on above: GFR Calc Estimated GFR (MDRD) Non-Af Amer 81 mL/min >60 [facility] Comment on above: Non- GFR Calc Serum or plasma calcium glo urement (mass/volume)Ordered By: Cammie Barajas on 04-25-2023 Calcium [Mass/Vol] 8.5 mg/dL 8.5-10.1 [facility] Serum or plasma creatinine m easurement (mass/volume)Ordered By: Cammie Barajas on 04-25-2023 Creatinine [Mass/Vol] 0.73 mg/dL 0.55-1.02 [facility] Comment on above: The validity of the calculated GFR & GFRAA in patients over 70 years has not been determined. Clinical correlation is essential. Serum or plasma urea nitroge n measurement (mass/volume)Ordered By: Cammie Barajas on 04-25-2023 Urea nitrogen [Mass/Vol] 13 mg/dL 718 [facility] Thin prep Papanicolaou smear with manual screeningOrdered By: Cammie Barajas on 04-25-2023 Thin prep Papanicolaou smear with manual screening 8 5-15 [facility] Comprehensive metabolic 2000 panelon 04-20-2023 Albumin [Mass/Vol] 3.8 g/dL Low 3.9 - 4.9 g/dL [facility] ALP [Catalytic activity/Vol] 64 U/L 34 - 123 U/L [facility] ALT [Catalytic activity/Vol] 16 U/L 7 - 38 U/L [facility] Anion gap [Moles/Vol] 10 mmol/L 9 - 18 mmol/L [facility] AST [Catalytic activity/Vol] 20 U/L 13 - 35 U/L [facility] Bilirubin [Mass/Vol] 0.5 mg/dL 0.2 - 1 .3 mg/dL [facility] Calcium [Mass/Vol] 9.1 mg/dL 8.5 - 10. 2 mg/dL [facility] Chloride [Moles/Vol] 97 mmol/L 97 - 10 5 mmol/L [facility] CO2 [Moles/Vol] 24 mmol/L 22 - 30 mmol/L [facility] Creatinine [Mass/Vol] 0.89 mg/dL 0.58 - 0.96 mg/dL [facility] Estimated Glomerular Filtration Rate 65 mL/min/1.73m >=60 mL/min/1.73m [facility] Glucose [Mass/Vol] 90 mg/dL 74 - 99 mg/dL [facility] Potassium [Moles/Vol] 4.6 mmol/L 3.7 - 5.1 mmol/L [facility] Protein [Mass/Vol] 6.4 g/dL 6.3 - 8.0 g/dL [facility] Sodium [Moles/Vol] 131 mmol/L Low 136 - 144 mmol/L [facility] Urea nitrogen [Mass/Vol] 13 mg/dL 7 - 21 mg/d L [facility] XR Abdomen Supine and Uprigh ton 04-20-2023 IMPRESSION: Nonobstructive bowel gas pattern. Moderate stool burden. Business Analyst Intern: BO Transcribe Date/Time: Apr 20 2023 1:46P Dictated by : BRIGHT TIAN MD This examination was interpreted and the report reviewed and electronically signed by: BRIGHT TIAN MD on Apr 20 2023 1:47PM [facility] DIVISION OF RADIOLOGY * * *Final Report* [...] colon. Osseous demineralization. DIVISION OF RADIOLOGY Provider, [facility] - 04/20/2023 * * *Final Report* * [...] Nonobstructive bowel gas pattern. Moderate stool burden. Business Analyst Intern: BO Transcribe Date/Time: Apr 20 2023 1:46P Dictated by : BRIGHT TIAN MD This examination was interpreted and the report reviewed and electronically signed by: BRIGHT TIAN MD on Apr 20 2023 1:47PM EST [facility] XR Abdomen Supine and Uprigh tOrdered By: [facility]cf Provider on 04-20-2023 [facility] XR Abdomen Supine and Uprigh ton 04-16-2023 Radiology Study observation (narrative) [facility] Basophil percentageOrdered B y: Erick Blanca on 04-11-2023 Bilirubin [Mass/Vol] 0.70 mg/dL 0.20-1.00 [facility] Comment on above: For patients on eltr ombopag therapy, use of Dimension [place] TBIL is not recommended. Chloride [Moles/Vol] 100 mmol/L 98-107 [facility] Glucose [Mass/Vol] 87 mg/dL 74-106 [facility] Potassium [Moles/Vol] 4.0 mmol/L 3.5-5.1 [facility] Protein [Mass/Vol] 6.5 g/dL 6.4-8.2 [facility] Sodium [Moles/Vol] 132 mmol/L 136-145 [facility] WBC (Bld) [#/Vol] 3.2 10*3/uL 4.4-11.0 [facility] Blood erythrocytes count (nu mber/volume)Ordered By: Erick Blanca on 04-11-2023 RBC (Bld) [#/Vol] 3.71 10*6/uL 4.2-5.4 [facility] Blood hemoglobin measurement (mass/volume)Ordered By: Erick Blanca on 04-11-2023 Hemoglobin (Bld) [Mass/Vol] 12.1 g/dL 12.0-15.0 [facility] Blood platelet mean volumeOr dered By: Erick Blanca on 04-11-2023 Platelet mean volume (Bld) [Entitic vol] 9.0 fL 6.2-12.0 [facility] Determination of erythrocyte mean corpuscular volume (MCV)Ordered By: Erick Blanca on 04-11-2023 MCV (RBC) [Entitic vol] 92.7 fL 81-99 [facility] Hematocrit Auto (Bld) [Volum e fraction]Ordered By: Erick Blanca on 04-11-2023 Hematocrit (Bld) [Volume fraction] 34.4 % 37-47 [facility] Laboratory - Chemistry and C hemistry - challengeOrdered By: Erick Blanca on 04-11-2023 ALP [Catalytic activity/Vol] 65 U/L 45-117 [facility] ALT [Catalytic activity/Vol] 22 U/L 13-56 [facility] CO2 [Moles/Vol] 29.0 mmol/L 21.0-32.0 [facility] Cobalamin (Vitamin B12) [Mass/Vol] 317 pg/mL 211-911 [facility] Globulin (S) [Mass/Vol] 3.5 g/dL 2.2-4.2 [facility] Urea nitrogen/Creatinine [Mass ratio] 14.3 mg/mg 10-20 [facility] Laboratory - Hematology and Cell countsOrdered By: Erick Blanca on 04-11-2023 Erythrocyte distribution width (RBC) [Entitic vol] 48.2 fL 35.1-43.9 [facility] Erythrocyte distribution width (RBC) [Ratio] 14.1 % 11.6-14.6 [facility] MCH (RBC) [Entitic mass] 32.6 pg 27.0-32.0 [facility] MCHC Auto (RBC) [Mass/Vol]Or dered By: Erick Blanca on 04-11-2023 MCHC (RBC) [Mass/Vol] 35.2 g/dL 32-36 [facility] No Panel InformationOrdered By: Erick Blanca on 04-11-2023 Estimated GFR (MDRD) Amer 84 mL/min >60 [facility] Comment on above: GFR Calc Estimated GFR (MDRD) Non-Af Amer 69 mL/min >60 [facility] Comment on above: Non- GFR Calc Free Lambda Light Chains, Quant 23.4 mg/L 5.7-26.3 [facility] Thyroid Stimulating Hormone (TSH) 1.83 uIU/mL 0.358-3.74 [facility] Whole Blood Vitamin B1 Level 86.7 nmol/L 66.5-200.0 [facility] Comment on above: Performed at: [facility] [id number] [place], [place] [id number] Director: Nicola Alex PhD, Phone: [phone] at: [facility] [id number] Director: Skylar Nichols MD, Phone: [phone] Platelets bldOrdered By: Jassi Blanca on 04-11-2023 Platelets (Bld) [#/Vol] 230 10*3/uL 150-450 [facility] Serum immunoglobulin kappa l ight chains/immunoglobulin lambda light chains mass ratioOrdered By: Erick Blanca on 04-11-2023 Immunoglobulin light chains.kappa/Immunoglobul in light chains.lambda (S) [Mass ratio] 1.65 0.26-1.65 [facility] Serum or plasma albumin glo urement (mass/volume)Ordered By: Erick Blanca on 04-11-2023 Albumin [Mass/Vol] 3.0 g/dL 3.2-5.0 [facility] Serum or plasma albumin/glob ulin mass ratioOrdered By: Erick Blanca on 04-11-2023 Albumin/Globulin [Mass ratio] 0.9 {ratio} 0.9-2.4 [facility] Serum or plasma calcium glo urement (mass/volume)Ordered By: Erick Blanca on 04-11-2023 Calcium [Mass/Vol] 8.1 mg/dL 8.5-10.1 [facility] Serum or plasma creatinine m easurement (mass/volume)Ordered By: Erick Blanca on 04-11-2023 Creatinine [Mass/Vol] 0.84 mg/dL 0.55-1.02 [facility] Comment on above: The validity of the calculated GFR & GFRAA in patients over 70 years has not been determined. Clinical correlation is essential. Serum or plasma folate measu rement (mass/volume)Ordered By: Erick Blanca on 04-11-2023 Folate [Mass/Vol] 13.20 ng/mL 3.1-55.4 [facility] Serum or plasma immunoglobul in kappa light chains measurement (mass/volume)Ordered By: Erick Blanca on 04-11-2023 Immunoglobulin light chains.kappa [Mass/Vol] 38.5 mg/L 3.3-19.4 [facility] Serum or plasma urea nitroge n measurement (mass/volume)Ordered By: Erick Blanca on 04-11-2023 Urea nitrogen [Mass/Vol] 12 mg/dL 7-18 [facility] Thin prep Papanicolaou smear with manual screeningOrdered By: Erick Blanca on 04-11-2023 Thin prep Papanicolaou smear with manual screening 20 U/L 15-37 [facility] Thin prep Papanicolaou smear with manual screening 3 5-15 [facility] Absolute lymphocyte countOrd ered By: Denzel Boone on 04-08-2023 Lymphocytes Auto (Unsp spec) [#/Vol] 1.82 10*3/uL 0.83-4.51 [facility] Basophil percentageOrdered B y: Denzel Boone on 04-08-2023 Basophils/100 WBC (Bld) 0.7 % 0-1 [facility] Chloride [Moles/Vol] 96 mmol/L 98-107 [facility] Eosinophils/100 WBC (Bld) 1.0 % 0-5 [facility] Glucose [Mass/Vol] 90 mg/dL 74-106 [facility] Neutrophils (Bld) [#/Vol] 1.6 10*3/uL 2.0-7.7 [facility] Neutrophils/100 WBC (Bld) 40.4 % 47-70 [facility] Potassium [Moles/Vol] 3.9 mmol/L 3.5-5.1 [facility] Sodium [Moles/Vol] 129 mmol/L 136-145 [facility] WBC (Bld) [#/Vol] 4.0 10*3/uL 4.4-11.0 [facility] Blood erythrocytes count (nu mber/volume)Ordered By: Denzel Boone on 04-08-2023 RBC (Bld) [#/Vol] 3.90 10*6/uL 4.2-5.4 [facility] Blood hemoglobin measurement (mass/volume)Ordered By: Denzel Boone on 04-08-2023 Hemoglobin (Bld) [Mass/Vol] 12.4 g/dL 12.0-15.0 [facility] Blood lymphocytes/100 leukoc ytesOrdered By: Denzel Boone on 04-08-2023 Lymphocytes/100 WBC (Bld) 45.0 % 19-41 [facility] Blood monocytes/100 leukocyt esOrdered By: Denzel Boone on 04-08-2023 Monocytes/100 WBC (Bld) 12.9 % 0-10 [facility] Blood platelet mean volumeOr dered By: Denzel Boone on 04-08-2023 Platelet mean volume (Bld) [Entitic vol] 9.9 fL 6.2-12.0 [facility] Determination of erythrocyte mean corpuscular volume (MCV)Ordered By: Denzel Boone on 04-08-2023 MCV (RBC) [Entitic vol] 93.1 fL 81-99 [facility] Hematocrit Auto (Bld) [Volum e fraction]Ordered By: Denzel Boone on 04-08-2023 Hematocrit (Bld) [Volume fraction] 36.3 % 37-47 [facility] Laboratory - Chemistry and C hemistry - challengeOrdered By: Denzel Boone on 04-08-2023 CO2 [Moles/Vol] 29.0 mmol/L 21.0-32.0 [facility] Natriuretic peptide B (Bld) [Mass/Vol] 158.3 pg/mL 0-100 [facility] Urea nitrogen/Creatinine [Mass ratio] 17.2 mg/mg 10-20 [facility] Laboratory - Hematology and Cell countsOrdered By: Denzel Boone on 04-08-2023 Erythrocyte distribution width (RBC) [Entitic vol] 48.8 fL 35.1-43.9 [facility] Erythrocyte distribution width (RBC) [Ratio] 14.2 % 11.6-14.6 [facility] Immature granulocytes/100 WBC (Bld) 0.000 % 0.0-0.9 [facility] Comment on above: IG% - Immature Granu locytes (promyelocytes, myelocytes and metamyelocytes) > 1% indicates that a LEFT SHIFT is Present. MCH (RBC) [Entitic mass] 31.8 pg 27.0-32.0 [facility] Nucleated RBC/100 WBC (Bld) [Ratio] 0 % 0-5 [facility] MCHC Auto (RBC) [Mass/Vol]Or dered By: Denzel Boone on 04-08-2023 MCHC (RBC) [Mass/Vol] 34.2 g/dL 32-36 [facility] No Panel InformationOrdered By: Denzel Boone on 04-08-2023 Troponin I High Sensitivity 4 pg/mL 3.0-54.0 [facility] Comment on above: Please Note: New Latricia t Units and Gender Specific Reference Ranges. For more information see Policy Stat Procedure [place] High Sensitivity Troponin (TNIH) and attachments. Estimated Creatinine Clearance Calc 42.89 ml/min [facility] Estimated GFR (MDRD) Amer 80 mL/min >60 [facility] Comment on above: GFR Calc Estimated GFR (MDRD) Non-Af Amer 66 mL/min >60 [facility] Comment on above: Non- GFR Calc Platelets bldOrdered By: Hattie Boone on 04-08-2023 Platelets (Bld) [#/Vol] 248 10*3/uL 150-450 [facility] Serum or plasma calcium glo urement (mass/volume)Ordered By: Denzel Boone on 04-08-2023 Calcium [Mass/Vol] 8.3 mg/dL 8.5-10.1 [facility] Serum or plasma creatinine m easurement (mass/volume)Ordered By: Denzel Boone on 04-08-2023 Creatinine [Mass/Vol] 0.87 mg/dL 0.55-1.02 [facility] Comment on above: The validity of the calculated GFR & GFRAA in patients over 70 years has not been determined. Clinical correlation is essential. Serum or plasma urea nitroge n measurement (mass/volume)Ordered By: Denzel Boone on 04-08-2023 Urea nitrogen [Mass/Vol] 15 mg/dL 7-18 [facility] Thin prep Papanicolaou smear with manual screeningOrdered By: Denzel Boone on 04-08-2023 Thin prep Papanicolaou smear with manual screening 4 5-15 [facility] Basophil percentageOrdered B y: Dr. Enciso on 11-14-2022 Chloride [Moles/Vol] 96 mmol/L 98-107 [facility] Glucose [Mass/Vol] 87 mg/dL 74-106 [facility] Potassium [Moles/Vol] 4.2 mmol/L 3.5-5.1 [facility] Sodium [Moles/Vol] 133 mmol/L 136-145 [facility] Laboratory - Chemistry and C hemistry - challengeOrdered By: Dr. Enciso on 11-14-2022 CO2 [Moles/Vol] 30.0 mmol/L 21.0-32.0 [facility] Sodium (U) [Moles/Vol] 55 mmol/L Not Establ. [facility] Urea nitrogen/Creatinine [Mass ratio] 18.6 mg/mg 10-20 [facility] No Panel InformationOrdered By: Dr. Enciso on 11-14-2022 Estimated GFR (MDRD) Amer 88 mL/min >60 [facility] Comment on above: GFR Calc Estimated GFR (MDRD) Non-Af Amer 73 mL/min >60 [facility] Comment on above: Non- GFR Calc Serum or plasma calcium glo urement (mass/volume)Ordered By: Dr. Enciso on 11-14-2022 Calcium [Mass/Vol] 8.8 mg/dL 8.5-10.1 [facility] Serum or plasma creatinine m easurement (mass/volume)Ordered By: Dr. Enciso on 11-14-2022 Creatinine [Mass/Vol] 0.81 mg/dL 0.55-1.02 [facility] Comment on above: The validity of the calculated GFR & GFRAA in patients over 70 years has not been determined. Clinical correlation is essential. Serum or plasma urea nitroge n measurement (mass/volume)Ordered By: Dr. Enciso on 11-14-2022 Urea nitrogen [Mass/Vol] 15 mg/dL 7-18 [facility] Thin prep Papanicolaou smear with manual screeningOrdered By: Dr. Enciso on 11-14-2022 Thin prep Papanicolaou smear with manual screening 7 5-15 [facility] Urine osmolality measurement Ordered By: Dr. Enciso on 11-14-2022 Osmolality (U) [Osmolality] 288 mOsm/KG >50 [facility] Comment on above: Normal Urine Referen ce Ranges Random: 50 - 1200 mOsm/kg H20 depending on fluid intake Random: >850 mOsm/kg after 12 hour fluid restriction 24 hour: ~300 - 900 mOsm/kg H2O Absolute lymphocyte countOrd ered By: Dr. Nguyễn on 10-08-2022 Lymphocytes Auto (Unsp spec) [#/Vol] 1.63 10*3/uL 0.83-4.51 [facility] Basophil percentageOrdered B y: Dr. Nguyễn on 10-08-2022 Basophils/100 WBC (Bld) 0.8 % 0-1 [facility] Bilirubin [Mass/Vol] 0.60 mg/dL 0.20-1.00 [facility] Comment on above: For patients on eltr ombopag therapy, use of Dimension [place] TBIL is not recommended. Chloride [Moles/Vol] 99 mmol/L 98-107 [facility] Eosinophils/100 WBC (Bld) 2.6 % 0-5 [facility] Glucose [Mass/Vol] 84 mg/dL 74-106 [facility] Neutrophils (Bld) [#/Vol] 1.7 10*3/uL 2.0-7.7 [facility] Neutrophils/100 WBC (Bld) 42.0 % 47-70 [facility] Potassium [Moles/Vol] 4.0 mmol/L 3.5-5.1 [facility] Protein [Mass/Vol] 6.6 g/dL 6.4-8.2 [facility] Sodium [Moles/Vol] 132 mmol/L 136-145 [facility] WBC (Bld) [#/Vol] 3.9 10*3/uL 4.4-11.0 [facility] Blood erythrocytes count (nu mber/volume)Ordered By: Dr. Nguyễn on 10-08-2022 RBC (Bld) [#/Vol] 3.60 10*6/uL 4.2-5.4 [facility] Blood hemoglobin measurement (mass/volume)Ordered By: Dr. Nguyễn on 10-08-2022 Hemoglobin (Bld) [Mass/Vol] 11.5 g/dL 12.0-15.0 [facility] Blood lymphocytes/100 leukoc ytesOrdered By: Dr. Nguyễn on 10-08-2022 Lymphocytes/100 WBC (Bld) 41.6 % 19-41 [facility] Blood monocytes/100 leukocyt esOrdered By: Dr. Nguyễn on 10-08-2022 Monocytes/100 WBC (Bld) 13.0 % 0-10 [facility] Blood platelet mean volumeOr dered By: Dr. Nguyễn on 10-08-2022 Platelet mean volume (Bld) [Entitic vol] 9.1 fL 6.2-12.0 [facility] Determination of erythrocyte mean corpuscular volume (MCV)Ordered By: Dr. Nguyễn on 10-08-2022 MCV (RBC) [Entitic vol] 94.2 fL 81-99 [facility] Hematocrit Auto (Bld) [Volum e fraction]Ordered By: Dr. Nguyễn on 10-08-2022 Hematocrit (Bld) [Volume fraction] 33.9 % 37-47 [facility] Laboratory - Chemistry and C hemistry - challengeOrdered By: Dr. Nguyễn on 10-08-2022 ALP [Catalytic activity/Vol] 58 U/L 45-117 [facility] ALT [Catalytic activity/Vol] 22 U/L 13-56 [facility] CO2 [Moles/Vol] 28.0 mmol/L 21.0-32.0 [facility] Globulin (S) [Mass/Vol] 3.5 g/dL 2.2-4.2 [facility] Urea nitrogen/Creatinine [Mass ratio] 19.6 mg/mg 10-20 [facility] Laboratory - Hematology and Cell countsOrdered By: Dr. Nguyễn on 10-08-2022 Erythrocyte distribution width (RBC) [Entitic vol] 46.5 fL 35.1-43.9 [facility] Erythrocyte distribution width (RBC) [Ratio] 13.4 % 11.6-14.6 [facility] Immature granulocytes/100 WBC (Bld) 0.000 % 0.0-0.9 [facility] Comment on above: IG% - Immature Granu locytes (promyelocytes, myelocytes and metamyelocytes) > 1% indicates that a LEFT SHIFT is Present. MCH (RBC) [Entitic mass] 31.9 pg 27.0-32.0 [facility] Nucleated RBC/100 W[facility] (Bld) [Ratio[facility] 0 % [facility] [Mass/Vol]Or dered By: Dr. Nguyễn on 10-08-2022 MCHC (RBC) [Mass/Vol] 33.9 g/dL 32-36 [facility] No Panel InformationOrdered By: Dr. Nguyễn on 10-08-2022 Estimated Creatinine Clearance Calc 46.55 ml/min [facility] Estimated GFR (MDRD) Amer 87 mL/min >60 [facility] Comment on above: GFR Calc Estimated GFR (MDRD) Non-Af Amer 72 mL/min >60 [facility] Comment on above: Non- GFR Calc Platelets bldOrdered By: Dr. Nguyễn on 10-08-2022 Platelets (Bld) [#/Vol] 224 10*3/uL 150-450 [facility] Serum or plasma albumin glo urement (mass/volume)Ordered By: Dr. Nguyễn on 10-08-2022 Albumin [Mass/Vol] 3.1 g/dL 3.2-5.0 [facility] Serum or plasma albumin/glob ulin mass ratioOrdered By: Dr. Nguyễn on 10-08-2022 Albumin/Globulin [Mass ratio] 0.9 {ratio} 0.9-2.4 [facility] Serum or plasma calcium glo urement (mass/volume)Ordered By: Dr. Nguyễn on 10-08-2022 Calcium [Mass/Vol] 8.3 mg/dL 8.5-10.1 [facility] Serum or plasma creatinine m easurement (mass/volume)Ordered By: Dr. Nguyễn on 10-08-2022 Creatinine [Mass/Vol] 0.82 mg/dL 0.55-1.02 [facility] Comment on above: The validity of the calculated GFR & GFRAA in patients over 70 years has not been determined. Clinical correlation is essential. Serum or plasma urea nitroge n measurement (mass/volume)Ordered By: Dr. Nguyễn on 10-08-2022 Urea nitrogen [Mass/Vol] 16 mg/dL 7-18 [facility] Thin prep Papanicolaou smear with manual screeningOrdered By: Dr. Nguyễn on 10-08-2022 Thin prep Papanicolaou smear with manual screening 23 U/L 15-37 [facility] Thin prep Papanicolaou smear with manual screening 5 5-15 [facility] 2019 CORONAVIRUSon 2 SARS-CoV-2 (COVID-19) RNA MIGUEL ANGEL+probe Ql (Resp) SARS-CoV-2 (Agent of COVID-19) Detected by RT-PCR or equivalent method. Abnormal Not Detected [facility] UA DIP, URINE (POC)on 2021 BILIRUBIN UA (POCT) Small Abnormal Negative [facility] CLARITY UA (POCT) Clear [facility] COLOR UA (POCT) Yellow [facility] GLUCOSE UA (POCT) Negative Negative mg/dL [facility] HEMOGLOBIN/BLOOD UA (POCT) Moderate Abnormal Negative [facility] KETONE UA (POCT) Trace Negative mg/dL [facility] LEUKOCYTES UA (POCT) Trace Abnormal Negative [facility] NITRITE UA (POCT) Negative Negative [facility] PH UA (POCT) 6.0 4.5 - 8.0 [facility] Protein Ql (U) >=300 Abnormal Negative mg/dL [facility] SPECIFIC GRAVITY UA (POCT) 1.025 1.005 - 1.030 [facility] UROBILINOGEN UA (POCT) 0.2 E.U./dL Nilsa l E.U./dL [facility] Absolute lymphocyte countOrd ered By: Minesh Briones on 08-17-2022 Lymphocytes Auto (Unsp spec) [#/Vol] 1.90 10*3/uL 0.83-4.51 [facility] Basophil percentageOrdered B y: Minesh Briones on 08-17-2022 Basophils/100 WBC (Bld) 0.2 % 0-1 [facility] Bilirubin [Mass/Vol] 0.90 mg/dL 0.20-1.00 [facility] Comment on above: For patients on eltr ombopag therapy, use of Dimension [place] TBIL is not recommended. Chloride [Moles/Vol] 94 mmol/L 98-107 [facility] Eosinophils/100 WBC (Bld) 0.0 % 0-5 [facility] Glucose [Mass/Vol] 144 mg/dL 74-106 [facility] Comment on above: Fasting Glucose resu lt greater than or equal to 126 mg/dL suggests DIABETES MELLITUS per A.D.A. criteria. Neutrophils (Bld) [#/Vol] 3.9 10*3/uL 2.0-7.7 [facility] Neutrophils/100 WBC (Bld) 62.5 % 47-70 [facility] Potassium [Moles/Vol] 3.4 mmol/L 3.5-5.1 [facility] Protein [Mass/Vol] 7.6 g/dL 6.4-8.2 [facility] Sodium [Moles/Vol] 127 mmol/L 136-145 [facility] WBC (Bld) [#/Vol] 6.2 10*3/uL 4.4-11.0 [facility] Blood erythrocytes count (nu mber/volume)Ordered By: Minesh Briones on 08-17-2022 RBC (Bld) [#/Vol] 4.01 10*6/uL 4.2-5.4 [facility] Blood hemoglobin measurement (mass/volume)Ordered By: Minesh Briones on 08-17-2022 Hemoglobin (Bld) [Mass/Vol] 12.8 g/dL 12.0-15.0 [facility] Blood lymphocytes/100 leukoc ytesOrdered By: Minesh Briones on 08-17-2022 Lymphocytes/100 WBC (Bld) 30.5 % 19-41 [facility] Blood monocytes/100 leukocyt esOrdered By: Minesh Briones on 08-17-2022 Monocytes/100 WBC (Bld) 6.6 % 0-10 [facility] Blood platelet mean volumeOr dered By: Minesh Briones on 08-17-2022 Platelet mean volume (Bld) [Entitic vol] 10.2 fL 6.2-12.0 [facility] Determination of erythrocyte mean corpuscular volume (MCV)Ordered By: Minesh Briones on 08-17-2022 MCV (RBC) [Entitic vol] 92.0 fL 81-99 [facility] Direct bilirubinOrdered By: Minesh Briones on 08-17-2022 Bilirubin.direct [Mass/Vol] 0.23 mg/dL 0.00-0.30 [facility] Hematocrit Auto (Bld) [Volum e fraction]Ordered By: Minesh Briones on 08-17-2022 Hematocrit (Bld) [Volume fraction] 36.9 % 37-47 [facility] Influenza virus A and B and SARS-CoV-2 (COVID-19) Ag panel - Upper respiratory specimOrdered By: Minesh Briones on 08-17-2022 SARS-CoV-2 (COVID-19) RNA MIGUEL ANGEL+probe Ql (Resp) [facility] Laboratory - Chemistry and C hemistry - challengeOrdered By: Minesh Briones on 08-17-2022 ALP [Catalytic activity/Vol] 68 U/L 45-117 [facility] ALT [Catalytic activity/Vol] 28 U/L 13-56 [facility] CO2 [Moles/Vol] 25.0 mmol/L 21.0-32.0 [facility] Globulin (S) [Mass/Vol] 4.0 g/dL 2.2-4.2 [facility] Lipase [Catalytic activity/Vol] 143 U/L 73-393 [facility] Magnesium [Mass/Vol] 2.0 mg/dL 1.6-2.6 [facility] Urea nitrogen/Creatinine [Mass ratio] 16.1 mg/mg 10-20 [facility] Laboratory - Hematology and Cell countsOrdered By: Minesh Briones on 08-17-2022 Erythrocyte distribution width (RBC) [Entitic vol] 43.2 fL 35.1-43.9 [facility] Erythrocyte distribution width (RBC) [Ratio] 12.8 % 11.6-14.6 [facility] Immature granulocytes/100 WBC (Bld) 0.200 % 0.0-0.9 [facility] Comment on above: IG% - Immature Granu locytes (promyelocytes, myelocytes and metamyelocytes) > 1% indicates that a LEFT SHIFT is Present. MCH (RBC) [Entitic mass] 31.9 pg 27.0-32.0 [facility] Nucleated RBC/100 WBC (Bld) [Ratio] 0 % 0-5 [facility] MCHC Auto (RBC) [Mass/Vol]Or dered By: Minesh Briones on 08-17-2022 MCHC (RBC) [Mass/Vol] 34.7 g/dL 32-36 [facility] No Panel InformationOrdered By: Minesh Briones on 08-17-2022 Estimated Creatinine Clearance Calc 47.22 ml/min [facility] Estimated GFR (MDRD) Amer 88 mL/min >60 [facility] Comment on above: GFR Calc Estimated GFR (MDRD) Non-Af Amer 73 mL/min >60 [facility] Comment on above: Non- GFR Calc Troponin I High Sensitivity 8 pg/mL 3.0-54.0 [facility] Comment on above: Please Note: New Latricia t Units and Gender Specific Reference Ranges. For more information see Policy Stat Procedure Kinsman High Sensitivity Troponin (TNIH) and attachments. Platelets bldOrdered By: Rc Briones on 08-17-2022 Platelets (Bld) [#/Vol] 267 10*3/uL 150-450 [facility] Serum or plasma albumin glo urement (mass/volume)Ordered By: Minesh Briones on 08-17-2022 Albumin [Mass/Vol] 3.6 g/dL 3.2-5.0 [facility] Serum or plasma calcium glo urement (mass/volume)Ordered By: Minesh Briones on 08-17-2022 Calcium [Mass/Vol] 8.3 mg/dL 8.5-10.1 [facility] Serum or plasma creatinine m easurement (mass/volume)Ordered By: Minesh Briones on 08-17-2022 Creatinine [Mass/Vol] 0.81 mg/dL 0.55-1.02 [facility] Comment on above: The validity of the calculated GFR & GFRAA in patients over 70 years has not been determined. Clinical correlation is essential. Serum or plasma urea nitroge n measurement (mass/volume)Ordered By: Minesh Briones on 08-17-2022 Urea nitrogen [Mass/Vol] 13 mg/dL 7-18 [facility] Thin prep Papanicolaou smear with manual screeningOrdered By: Minesh Briones on 08-17-2022 Thin prep Papanicolaou smear with manual screening 25 U/L 15-37 [facility] Thin prep Papanicolaou smear with manual screening 8 5-15 [facility] US LEG VEIN DVT UNL VAS LABo n 07-11-2022 [facility] Laboratory - Microbiology an d Antimicrobial susceptibilityon 06-07-2022 SARS-CoV-2 (COVID-19) RNA MIGUEL ANGEL+probe Ql (Unsp spec) Not detected [facility] Work Phone: No Panel Informationon 06-07 Influenza Types A,B Rapid (Clinic) Not detected [facility] Work Phone: Iron measurement (mass/mass) on 05-29-2022 Iron (Unsp spec) [Mass/Mass] 97 ug/dL 50-170 [facility] Work Phone: Laboratory - Chemistry and C hemistry - challengeon 05-29-2022 Cobalamin (Vitamin B12) [Mass/Vol] 509 pg/mL 211-911 [facility] Work Phone: Serum or plasma ferritin she surement (mass/volume)on 05-29-2022 Ferritin [Mass/Vol] 20 ng/mL 8-252 [facility] Work Phone: Serum or plasma folate measu rement (mass/volume)on 05-29-2022 Folate [Mass/Vol] 12.90 ng/mL 3.1-55.4 [facility] Work Phone: Absolute lymphocyte counton 05-16-2022 Lymphocytes Auto (Unsp spec) [#/Vol] 1.03 10*3/uL 0.83-4.51 [facility] Work Phone: Basophil percentageon 2021 Basophils/100 WBC (Bld) 0.8 % 0-1 [facility] Work Phone: Chloride [Moles/Vol] 98 mmol/L 98-107 [facility] Work Phone: Eosinophils/100 WBC (Bld) 9.8 % 0-5 [facility] Work Phone: Glucose [Mass/Vol] 104 mg/dL 74-106 [facility] Work Phone: Comment on above: Fasting Glucose resu lt from 100 to 125 mg/dL suggests IMPAIRED HOMEOSTASIS per A.D.A. criteria. Neutrophils (Bld) [#/Vol] 1.6 10*3/uL 2.0-7.7 [facility] Work Phone: Neutrophils/100 WBC (Bld) 45.3 % 47-70 [facility] Work Phone: [phone] Potassium [Moles/Vol] 4.7 mmol/L 3.5-5.1 [facility] Work Phone: Sodium [Moles/Vol] 130 mmol/L 136-145 [facility] Work Phone: WBC (Bld) [#/Vol] 3.6 10*3/uL 4.4-11.0 [facility] Work Phone: Blood erythrocytes count (nu mber/volume)on 05-16-2022 RBC (Bld) [#/Vol] 3.54 10*6/uL 4.2-5.4 [facility]: Blood hemoglobin measurement (mass/volume)on 05-16-2022 Hemoglobin (Bld) [Mass/Vol] 11.8 g/dL 12.0-15.0 [facility] Work Phone: Blood lymphocytes/100 leukoc yteson 05-16-2022 Lymphocytes/100 WBC (Bld) 28.9 % 19-41 [facility] Work Phone: Blood monocytes/100 leukocyt eson 05-16-2022 Monocytes/100 WBC (Bld) 14.9 % 0-10 [facility] Work Phone: [phone] Blood platelet mean volumeon 05-16-2022 Platelet mean volume (Bld) [Entitic vol] 9.7 fL 6.2-12.0 [facility] Work Phone: Determination of erythrocyte mean corpuscular volume (MCV)on 05-16-2022 MCV (RBC) [Entitic vol] 94.9 fL 81-99 [facility] Work Phone: Hematocrit Auto (Bld) [Volum e fraction]on 05-16-2022 Hematocrit (Bld) [Volume fraction] 33.6 % 37-47 [facility] Work Phone: Laboratory - Chemistry and C hemistry - challengeon 05-16-2022 CO2 [Moles/Vol] 26.0 mmol/L 21.0-32.0 [facility] Work Phone: Urea nitrogen/Creatinine [Mass ratio] 16.4 mg/mg 10-20 [facility] Work Phone: Laboratory - Hematology and Cell countson 05-16-2022 Erythrocyte distribution width (RBC) [Entitic vol] 48.6 fL 35.1-43.9 [facility] Work Phone: Erythrocyte distribution width (RBC) [Ratio] 13.7 % 11.6-14.6 [facility] Work Phone: Immature granulocytes/100 WBC (Bld) 0.300 % 0.0-0.9 [facility] Work Phone: Comment on above: IG% - Immature Granu locytes (promyelocytes, myelocytes and metamyelocytes) > 1% indicates that a LEFT SHIFT is Present. MCH (RBC) [Entitic mass] 33.3 pg 27.0-32.0 [facility] Work Phone: Nucleated RBC/100 WBC (Bld) [Ratio] 0 % 0-5 [facility] Work Phone: MCHC Auto (RBC) [Mass/Vol]on 05-16-2022 MCHC (RBC) [Mass/Vol] 35.1 g/dL 32-36 [facility] Work Phone: No Panel Informationon 05-16 Estimated GFR (MDRD) Amer 76 mL/min >60 [facility] Work Phone: Comment on above: GFR Calc Estimated GFR (MDRD) Non-Af Amer 63 mL/min >60 [facility] Work Phone: Comment on above: Non- GFR Calc Platelets bldon 05-16-2022 Platelets (Bld) [#/Vol] 255 10*3/uL 150-450 [facility] Work Phone: Serum or plasma calcium glo urement (mass/volume)on 05-16-2022 Calcium [Mass/Vol] 8.7 mg/dL 8.5-10.1 [facility] Work Phone: Serum or plasma creatinine m easurement (mass/volume)on 05-16-2022 Creatinine [Mass/Vol] 0.91 mg/dL 0.55-1.02 [facility] Work Phone: Comment on above: The validity of the calculated GFR & GFRAA in patients over 70 years has not been determined. Clinical correlation is essential. Serum or plasma urea nitroge n measurement (mass/volume)on 05-16-2022 Urea nitrogen [Mass/Vol] 15 mg/dL 7-18 [facility] Work Phone: Thin prep Papanicolaou smear with manual screeningon 05-16-2022 Thin prep Papanicolaou smear with manual screening 6 5-15 [facility] Work Phone: XR KNEE GENERAL 4V AP BOTH/P A BOTH/LAT/MERC RIGHTon 04-21-2022 [facility] Absolute lymphocyte counton 03-18-2022 Lymphocytes Auto (Unsp spec) [#/Vol] 1.99 10*3/uL 0.83-4.51 [facility] Work Phone: Basophil percentageon 2021 Basophils/100 WBC (Bld) 0.7 % 0-1 [facility] Work Phone: Chloride [Moles/Vol] 96 mmol/L 98-107 [facility] Work Phone: Eosinophils/100 WBC (Bld) 2.1 % 0-5 [facility] Work Phone: Glucose [Mass/Vol] 117 mg/dL 74-106 [facility] Work Phone: Comment on above: Fasting Glucose resu lt from 100 to 125 mg/dL suggests IMPAIRED HOMEOSTASIS per A.D.A. criteria. Neutrophils (Bld) [#/Vol] 1.7 10*3/uL 2.0-7.7 [facility] Work Phone: [phone] Neutrophils/100 WBC (Bld) 38.9 % 47-70 [facility] Work Phone: [phone] Potassium [Moles/Vol] 4.2 mmol/L 3.5-5.1 [facility] Work Phone: [phone] Sodium [Moles/Vol] 130 mmol/L 136-145 [facility] Work Phone: WBC (Bld) [#/Vol] 4.3 10*3/uL 4.4-11.0 [facility] Work Phone: [phone] Blood erythrocytes count (nu mber/volume)on 03-18-2022 RBC (Bld) [#/Vol] 3.65 10*6/uL 4.2-5.4 [facility] Work Phone: Blood hemoglobin measurement (mass/volume)on 03-18-2022 Hemoglobin (Bld) [Mass/Vol] 11.8 g/dL 12.0-15.0 [facility] Work Phone: Blood lymphocytes/100 leukoc yteson 03-18-2022 Lymphocytes/100 WBC (Bld) 46.8 % 19-41 [facility] Work Phone: Blood monocytes/100 leukocyt eson 03-18-2022 Monocytes/100 WBC (Bld) 11.3 % 0-10 [facility] Work Phone: Blood platelet mean volumeon 03-18-2022 Platelet mean volume (Bld) [Entitic vol] 10.0 fL 6.2-12.0 [facility] Work Phone: Determination of erythrocyte mean corpuscular volume (MCV)on 03-18-2022 MCV (RBC) [Entitic vol] 95.6 fL 81-99 [facility] Work Phone: Hematocrit Auto (Bld) [Volum e fraction]on 03-18-2022 Hematocrit (Bld) [Volume fraction] 34.9 % 37-47 [facility] Work Phone: Laboratory - Chemistry and C hemistry - challengeon 03-18-2022 CO2 [Moles/Vol] 28.0 mmol/L 21.0-32.0 [facility] Work Phone: Urea nitrogen/Creatinine [Mass ratio] 16.8 mg/mg 10-20 [facility] Work Phone: Laboratory - Hematology and Cell countson 03-18-2022 Erythrocyte distribution width (RBC) [Entitic vol] 45.9 fL 35.1-43.9 [facility] Work Phone: Erythrocyte distribution width (RBC) [Ratio] 13.0 % 11.6-14.6 [facility] Work Phone: Immature granulocytes/100 WBC (Bld) 0.200 % 0.0-0.9 [facility] Work Phone: Comment on above: IG% - Immature Granu locytes (promyelocytes, myelocytes and metamyelocytes) > 1% indicates that a LEFT SHIFT is Present. MCH (RBC) [Entitic mass] 32.3 pg 27.0-32.0 [facility] Work Phone: Nucleated RBC/100 WBC (Bld) [Ratio] 0 % 0-5 [facility] Work Phone: MCHC Auto (RBC) [Mass/Vol]on 03-18-2022 MCHC (RBC) [Mass/Vol] 33.8 g/dL 32-36 [facility] Work Phone: No Panel Informationon 03-18 Estimated GFR (MDRD) Amer 78 mL/min >60 [facility] Work Phone: Comment on above: GFR Calc Estimated GFR (MDRD) Non-Af Amer 65 mL/min >60 [facility] Work Phone: Comment on above: Non- GFR Calc Thyroid Stimulating Hormone (TSH) 1.61 uIU/mL 0.358-3.74 [facility] Work Phone: Platelets bldon 03-18-2022 Platelets (Bld) [#/Vol] 230 10*3/uL 150-450 [facility] Work Phone: Serum or plasma calcitriol m easurement (mass/volume)on 03-18-2022 1,25-dihydroxyvitamin D3 [Mass/Vol] 57.2 pg/mL 24.8-81.5 [facility] Work Phone: Comment on above: Please note refere nce interval changePerformed at: [facility] [id number] [place], [place] [id number] Director: Skylar Nichols MD, Phone: [phone] Serum or plasma calcium glo urement (mass/volume)on 03-18-2022 Calcium [Mass/Vol] 8.7 mg/dL 8.5-10.1 [facility] Work Phone: Serum or plasma creatinine m easurement (mass/volume)on 03-18-2022 Creatinine [Mass/Vol] 0.89 mg/dL 0.55-1.02 [facility] Work Phone: Comment on above: The validity of the calculated GFR & GFRAA in patients over 70 years has not been determined. Clinical correlation is essential. Serum or plasma urea nitroge n measurement (mass/volume)on 03-18-2022 Urea nitrogen [Mass/Vol] 15 mg/dL 7-18 [facility] Work Phone: Thin prep Papanicolaou smear with manual screeningon 03-18-2022 Thin prep Papanicolaou smear with manual screening 6 5-15 [facility] Work Phone: Basophil percentageon 2021 Sodium [Moles/Vol] 129 mmol/L 136-145 [facility] Work Phone: Basophil percentageon 2021 Chloride [Moles/Vol] 97 mmol/L 98-107 [facility] Work Phone: Glucose [Mass/Vol] 108 mg/dL 74-106 [facility] Work Phone: Comment on above: Fasting Glucose resu lt from 100 to 125 mg/dL suggests IMPAIRED HOMEOSTASIS per A.D.A. criteria. Potassium [Moles/Vol] 4.3 mmol/L 3.5-5.1 [facility] Work Phone: Sodium [Moles/Vol] 130 mmol/L 136-145 [facility] Work Phone: Laboratory - Chemistry and C hemistry - challengeon 11-16-2021 CO2 [Moles/Vol] 28.0 mmol/L 21.0-32.0 [facility] Work Phone: Urea nitrogen/Creatinine [Mass ratio] 20.9 mg/mg 10-20 [facility] Work Phone: No Panel Informationon 11-16 Estimated GFR (MDRD) Amer 77 mL/min >60 [facility] Work Phone: Comment on above: GFR Calc Estimated GFR (MDRD) Non-Af Amer 63 mL/min >60 [facility] Work Phone: Comment on above: Non- GFR Calc Serum or plasma calcium glo urement (mass/volume)on 11-16-2021 Calcium [Mass/Vol] 8.5 mg/dL 8.5-10.1 [facility] Work Phone: Serum or plasma cortisol she surement (mass/volume)on 11-16-2021 Cortisol [Mass/Vol] 13.70 ug/dL 3.44-22.45 [facility] Work Phone: Comment on above: Adult (AM) 5.27 - 22 .45 ug/dL Adult (PM) 3.44 - 16.76 ug/dLPlease note revised CORTISOL reference range effective 2019. Serum or plasma creatinine m easurement (mass/volume)on 11-16-2021 Creatinine [Mass/Vol] 0.91 mg/dL 0.55-1.02 [facility] Work Phone: Comment on above: The validity of the calculated GFR & GFRAA in patients over 70 years has not been determined. Clinical correlation is essential. Serum or plasma urea nitroge n measurement (mass/volume)on 11-16-2021 Urea nitrogen [Mass/Vol] 19 mg/dL 7-18 [facility] Work Phone: Thin prep Papanicolaou smear with manual screeningon 11-16-2021 Thin prep Papanicolaou smear with manual screening 5 5-15 [facility] Work Phone: [phone] Absolute lymphocyte counton 11-14-2021 Lymphocytes Auto (Unsp spec) [#/Vol] 1.64 10*3/uL 0.83-4.51 [facility] Work Phone: Basophil percentageon 2021 Basophils/100 WBC (Bld) 1.1 % 0-1 [facility] Work Phone: [phone] Bilirubin [Mass/Vol] 0.70 mg/dL 0.20-1.00 [facility] Work Phone: Comment on above: For patients on eltr ombopag therapy, use of Dimension [place] TBIL is not recommended. Chloride [Moles/Vol] 99 mmol/L 98-107 [facility] Work Phone: Cholesterol [Mass/Vol] 181 mg/dL <200 [facility] Work Phone: [phone] Comment on above: <200 mg/dL Desirable 200-240 mg/dL Borderline >240 mg/dL High Risk Eosinophils/100 WBC (Bld) 6.7 % 0-5 [facility] Work Phone: Glucose [Mass/Vol] 87 mg/dL 74-106 [facility] Work Phone: Neutrophils (Bld) [#/Vol] 1.1 10*3/uL 2.0-7.7 [facility] Work Phone: Neutrophils/100 WBC (Bld) 31.3 % 47-70 [facility] Work Phone: Potassium [Moles/Vol] 4.1 mmol/L 3.5-5.1 [facility] Work Phone: [phone] Protein [Mass/Vol] 6.6 g/dL 6.4-8.2 [facility] Work Phone: Sodium [Moles/Vol] 133 mmol/L 136-145 [facility] Work Phone: Triglyceride [Mass/Vol] 62 mg/dL [facility] Work Phone: Comment on above: The drugs N-Acetylcy steine and Metamizole may falsely depress this assay.Serum Triglycerides Reference Interval Normal <150 mg/dL Borderline high 150 - 199 mg/dL High 200 - 499 mg/dL Very High > or = 500 mg/dL WBC (Bld) [#/Vol] 3.6 10*3/uL 4.4-11.0 [facility] Work Phone: Blood erythrocytes count (nu mber/volume)on 11-14-2021 RBC (Bld) [#/Vol] 3.83 10*6/uL 4.2-5.4 [facility] Work Phone: Blood hemoglobin measurement (mass/volume)on 11-14-2021 Hemoglobin (Bld) [Mass/Vol] 12.3 g/dL 12.0-15.0 [facility] Work Phone: Blood lymphocytes/100 leukoc yteson 11-14-2021 Lymphocytes/100 WBC (Bld) 45.8 % 19-41 [facility] Work Phone: [phone] Blood monocytes/100 leukocyt eson 11-14-2021 Monocytes/100 WBC (Bld) 14.5 % 0-10 [facility] Work Phone: [phone] Blood platelet mean volumeon 11-14-2021 Platelet mean volume (Bld) [Entitic vol] 10.3 fL 6.2-12.0 [facility] Work Phone: Determination of erythrocyte mean corpuscular volume (MCV)on 11-14-2021 MCV (RBC) [Entitic vol] 92.7 fL 81-99 [facility] Work Phone: Hematocrit Auto (Bld) [Volum e fraction]on 11-14-2021 Hematocrit (Bld) [Volume fraction] 35.5 % 37-47 [facility] Work Phone: Laboratory - Chemistry and C hemistry - challengeon 11-14-2021 ALP [Catalytic activity/Vol] 72 U/L 45-117 [facility] Work Phone: ALT [Catalytic activity/Vol] 32 U/L 13-56 [facility] Work Phone: CO2 [Moles/Vol] 31.0 mmol/L 21.0-32.0 [facility] Work Phone: Globulin (S) [Mass/Vol] 3.6 g/dL 2.2-4.2 [facility] Work Phone: Urea nitrogen/Creatinine [Mass ratio] 21.9 mg/mg 10-20 [facility] Work Phone: Laboratory - Hematology and Cell countson 11-14-2021 Erythrocyte distribution width (RBC) [Entitic vol] 45.9 fL 35.1-43.9 [facility] Work Phone: [phone] Erythrocyte distribution width (RBC) [Ratio] 13.5 % 11.6-14.6 [facility] Work Phone: Immature granulocytes/100 WBC (Bld) 0.600 % 0.0-0.9 [facility] Work Phone: Comment on above: IG% - Immature Granu locytes (promyelocytes, myelocytes and metamyelocytes) > 1% indicates that a LEFT SHIFT is Present. MCH (RBC) [Entitic mass] 32.1 pg 27.0-32.0 [facility] Work Phone: Nucleated RBC/100 WBC (Bld) [Ratio] 0 % 0-5 [facility] Work Phone: MCHC Auto (RBC) [Mass/Vol]on 11-14-2021 MCHC (RBC) [Mass/Vol] 34.6 g/dL 32-36 [facility]: No Panel Informationon 11-14 Estimated GFR (MDRD) Amer 98 mL/min >60 [facility] Work Phone: Comment on above: GFR Calc Estimated GFR (MDRD) Non-Af Amer 81 mL/min >60 [facility] Work Phone: Comment on above: Non- GFR Calc Platelets bldon 11-14-2021 Platelets (Bld) [#/Vol] 244 10*3/uL 150-450 [facility] Work Phone: Serum or plasma albumin glo urement (mass/volume)on 11-14-2021 Albumin [Mass/Vol] 3.0 g/dL 3.2-5.0 [facility] Work Phone: Serum or plasma albumin/glob ulin mass ratioon 11-14-2021 Albumin/Globulin [Mass ratio] 0.8 {ratio} 0.9-2.4 [facility] Work Phone: Serum or plasma calcium glo urement (mass/volume)on 11-14-2021 Calcium [Mass/Vol] 8.3 mg/dL 8.5-10.1 [facility] Work Phone: Serum or plasma cholesterol in HDL measurement (mass/volume)on 11-14-2021 Cholesterol in HDL [Mass/Vol] 85 mg/dL [facility] Work Phone: Comment on above: The drugs N-Acetylcy steine and Metamizole may falsely depress this assay. Reference Range HDL <40 mg/dL Low HDL Cholesterol HDL >or= 60 mg/dL High HDL Cholesterol Serum or plasma cholesterol in VLDL measurement (mass/volume)on 11-14-2021 Cholesterol in VLDL [Mass/Vol] 12 mg/dL 5-40 [facility] Work Phone: Serum or plasma creatinine m easurement (mass/volume)on 11-14-2021 Creatinine [Mass/Vol] 0.73 mg/dL 0.55-1.02 [facility] Work Phone: Comment on above: The validity of the calculated GFR & GFRAA in patients over 70 years has not been determined. Clinical correlation is essential. Serum or plasma low density lipoprotein (LDL) cholesterol measurement (mass/volume)on 11-14-2021 Cholesterol in LDL [Mass/Vol] 84 mg/dL 0-130 [facility] Work Phone: Serum or plasma urea nitroge n measurement (mass/volume)on 11-14-2021 Urea nitrogen [Mass/Vol] 16 mg/dL 7-18 [facility] Work Phone: Thin prep Papanicolaou smear with manual screeningon 11-14-2021 Thin prep Papanicolaou smear with manual screening 26 U/L 15-37 [facility] Work Phone: Thin prep Papanicolaou smear with manual screening 3 5-15 [facility] Work Phone: No Panel Informationon 10-25 Troponin I High Sensitivity 12 pg/mL 3.0-54.0 [facility] Work Phone: Comment on above: Please Note: New Latricia t Units and Gender Specific Reference Ranges. For more information see Policy Stat Procedure [place] High Sensitivity Troponin (TNIH) and attachments. Absolute lymphocyte counton 10-24-2021 Lymphocytes Auto (Unsp spec) [#/Vol] 3.19 10*3/uL 0.83-4.51 [facility] Work Phone: Basophil percentageon 2021 Basophils/100 WBC (Bld) 0.6 % 0-1 [facility] Work Phone: Bilirubin [Mass/Vol] 0.80 mg/dL 0.20-1.00 [facility] Work Phone: Comment on above: For patients on eltr ombopag therapy, use of Dimension K[place] TBIL is not recommended. Chloride [Moles/Vol] 94 mmol/L 98-107 [facility] Work Phone: Eosinophils/100 WBC (Bld) 2.3 % 0-5 [facility] Work Phone: Glucose [Mass/Vol] 114 mg/dL 74-106 [facility] Work Phone: Comment on above: Fasting Glucose resu lt from 100 to 125 mg/dL suggests IMPAIRED HOMEOSTASIS per A.D.A. criteria. Neutrophils (Bld) [#/Vol] 2.7 10*3/uL 2.0-7.7 [facility] Work Phone: Neutrophils/100 WBC (Bld) 39.8 % 47-70 [facility] Work Phone: Potassium [Moles/Vol] 3.5 mmol/L 3.5-5.1 [facility] Work Phone: Protein [Mass/Vol] 7.5 g/dL 6.4-8.2 [facility] Work Phone: Sodium [Moles/Vol] 129 mmol/L 136-145 [facility] Work Phone: WBC (Bld) [#/Vol] 6.9 10*3/uL 4.4-11.0 [facility] Work Phone: Blood erythrocytes count (nu mber/volume)on 10-24-2021 RBC (Bld) [#/Vol] 3.99 10*6/uL 4.2-5.4 [facility] Work Phone: Blood hemoglobin measurement (mass/volume)on 10-24-2021 Hemoglobin (Bld) [Mass/Vol] 13.0 g/dL 12.0-15.0 [facility] Work Phone: Blood lymphocytes/100 leukoc yteson 10-24-2021 Lymphocytes/100 WBC (Bld) 46.4 % 19-41 [facility] Work Phone: Blood monocytes/100 leukocyt eson 10-24-2021 Monocytes/100 WBC (Bld) 10.8 % 0-10 [facility] Work Phone: Blood platelet mean volumeon 10-24-2021 Platelet mean volume (Bld) [Entitic vol] 9.8 fL 6.2-12.0 [facility] Work Phone: Determination of erythrocyte mean corpuscular volume (MCV)on 10-24-2021 MCV (RBC) [Entitic vol] 94.2 fL 81-99 [facility] Work Phone: Direct bilirubinon 2 Bilirubin.direct [Mass/Vol] 0.21 mg/dL 0.00-0.30 [facility] Work Phone: Hematocrit Auto (Bld) [Volum e fraction]on 10-24-2021 Hematocrit (Bld) [Volume fraction] 37.6 % 37-47 [facility] Work Phone: Laboratory - Chemistry and C hemistry - challengeon 10-24-2021 ALP [Catalytic activity/Vol] 61 U/L 45-117 [facility] Work Phone: ALT [Catalytic activity/Vol] 30 U/L 13-56 [facility] Work Phone: CO2 [Moles/Vol] 27.0 mmol/L 21.0-32.0 [facility] Work Phone: Globulin (S) [Mass/Vol] 3.9 g/dL 2.2-4.2 [facility] Work Phone: Lipase [Catalytic activity/Vol] 156 U/L 73-393 [facility] Work Phone: Magnesium [Mass/Vol] 2.2 mg/dL [facility] Work Phone: Comment on above: Performed at: [address] [id number] Director: Nicola Alex PhD, Phone: [phone] Urea nitrogen/Creatinine [Mass ratio] 21.0 mg/mg 10-20 [facility] Work Phone: Laboratory - Hematology and Cell countson 10-24-2021 Erythrocyte distribution width (RBC) [Entitic vol] 45.5 fL 35.1-43.9 [facility] Work Phone: Erythrocyte distribution width (RBC) [Ratio] 13.2 % 11.6-14.6 [facility] Work Phone: Immature granulocytes/100 WBC (Bld) 0.100 % 0.0-0.9 [facility] Work Phone: Comment on above: IG% - Immature Granu locytes (promyelocytes, myelocytes and metamyelocytes) > 1% indicates that a LEFT SHIFT is Present. MCH (RBC) [Entitic mass] 32.6 pg 27.0-32.0 [facility] Work Phone: Nucleated RBC/100 WBC (Bld) [Ratio] 0 % 0-5 [facility] Work Phone: MCHC Auto (RBC) [Mass/Vol]on 10-24-2021 MCHC (RBC) [Mass/Vol] 34.6 g/dL 32-36 [facility] Work Phone: No Panel Informationon 10-24 Estimated Creatinine Clearance Calc 40.90 ml/min [facility] Work Phone: Estimated GFR (MDRD) Amer 69 mL/min >60 [facility] Work Phone: Comment on above: GFR Calc Estimated GFR (MDRD) Non-Af Amer 57 mL/min >60 [facility] Work Phone: Comment on above: Non- GFR Calc Platelets bldon 10-24-2021 Platelets (Bld) [#/Vol] 240 10*3/uL 150-450 [facility] Work Phone: Serum or plasma albumin glo urement (mass/volume)on 10-24-2021 Albumin [Mass/Vol] 3.6 g/dL 3.2-5.0 [facility] Work Phone: Serum or plasma calcium glo urement (mass/volume)on 10-24-2021 Calcium [Mass/Vol] 8.9 mg/dL 8.5-10.1 [facility] Work Phone: Serum or plasma creatinine m easurement (mass/volume)on 10-24-2021 Creatinine [Mass/Vol] 1.00 mg/dL 0.55-1.02 [facility] Work Phone: Comment on above: The validity of the calculated GFR & GFRAA in patients over 70 years has not been determined. Clinical correlation is essential. Serum or plasma urea nitroge n measurement (mass/volume)on 10-24-2021 Urea nitrogen [Mass/Vol] 21 mg/dL 7-18 [facility] Work Phone: Thin prep Papanicolaou smear with manual screeningon 10-24-2021 Thin prep Papanicolaou smear with manual screening 21 U/L 15-37 [facility] Work Phone: Thin prep Papanicolaou smear with manual screening 8 5-15 [facility] Work Phone: Absolute lymphocyte counton 09-26-2021 Lymphocytes Auto (Unsp spec) [#/Vol] 1.84 10*3/uL 0.83-4.51 [facility] Work Phone: Basophil percentageon 2021 Basophils/100 WBC (Bld) 0.7 % 0-1 [facility] Work Phone: Bilirubin [Mass/Vol] 0.80 mg/dL 0.20-1.00 [facility] Work Phone: Comment on above: For patients on eltr ombopag therapy, use of Dimension [place] TBIL is not recommended. Chloride [Moles/Vol] 100 mmol/L 98-107 [facility] Work Phone: Eosinophils/100 WBC (Bld) 3.0 % 0-5 [facility] Work Phone: Glucose [Mass/Vol] 86 mg/dL 74-106 [facility] Work Phone: Neutrophils (Bld) [#/Vol] 1.8 10*3/uL 2.0-7.7 [facility] Work Phone: Neutrophils/100 WBC (Bld) 41.1 % 47-70 [facility] Work Phone: Potassium [Moles/Vol] 4.0 mmol/L 3.5-5.1 [facility] Work [facility]: Protein [Mass/Vol] 6.9 g/dL 6.4-8.2 [facility]: Sodium [Moles/Vol] 135 mmol/L 136-145 [facility] Work Phone: WBC (Bld) [#/Vol] 4.3 10*3/uL 4.4-11.0 [facility] Work Phone: Blood erythrocytes count (nu mber/volume)on 09-26-2021 RBC (Bld) [#/Vol] 3.86 10*6/uL 4.2-5.4 [facility]: Blood hemoglobin measurement (mass/volume)on 09-26-2021 Hemoglobin (Bld) [Mass/Vol] 12.1 g/dL 12.0-15.0 [facility] Work Phone: Blood lymphocytes/100 leukoc yteson 09-26-2021 Lymphocytes/100 WBC (Bld) 42.5 % 19-41 [facility] Work Phone: Blood monocytes/100 leukocyt eson 09-26-2021 Monocytes/100 WBC (Bld) 12.5 % 0-10 [facility] Work Phone: Blood platelet mean volumeon 09-26-2021 Platelet mean volume (Bld) [Entitic vol] 8.9 fL 6.2-12.0 [facility] Work Phone: Determination of erythrocyte mean corpuscular volume (MCV)on 09-26-2021 MCV (RBC) [Entitic vol] 93.8 fL 81-99 [facility] Work Phone: Hematocrit Auto (Bld) [Volum e fraction]on 09-26-2021 Hematocrit (Bld) [Volume fraction] 36.2 % 37-47 [facility] Work Phone: Laboratory - Chemistry and C hemistry - challengeon 01-13-2022 ALP [Catalytic activity/Vol] 57 U/L 45-117 [facility] Work Phone: ALT [Catalytic activity/Vol] 26 U/L 13-56 [facility] Work Phone: CO2 [Moles/Vol] 29.0 mmol/L 21.0-32.0 [facility] Work Phone: Globulin (S) [Mass/Vol] 3.7 g/dL 2.2-4.2 [facility] Work Phone: Urea nitrogen/Creatinine [Mass ratio] 20.5 mg/mg 10-20 [facility] Work Phone: Laboratory - Hematology and Cell countson 09-26-2021 Erythrocyte distribution width (RBC) [Entitic vol] 46.7 fL 35.1-43.9 [facility] Work Phone: Erythrocyte distribution width (RBC) [Ratio] 13.6 % 11.6-14.6 [facility] Work Phone: Immature granulocytes/100 WBC (Bld) 0.200 % 0.0-0.9 [facility] Work Phone: Comment on above: IG% - Immature Granu locytes (promyelocytes, myelocytes and metamyelocytes) > 1% indicates that a LEFT SHIFT is Present. MCH (RBC) [Entitic mass] 31.3 pg 27.0-32.0 [facility] Work Phone: Nucleated RBC/100 WBC (Bld) [Ratio] 0 % 0-5 [facility] Work Phone: MCHC Auto (RBC) [Mass/Vol]on 09-26-2021 MCHC (RBC) [Mass/Vol] 33.4 g/dL 32-36 [facility] Work Phone: No Panel Informationon 09-26 Estimated Creatinine Clearance Calc 45.29 ml/min [facility] Work Phone: Estimated GFR (MDRD) Amer 80 mL/min >60 [facility] Work Phone: Comment on above: GFR Calc Estimated GFR (MDRD) Non-Af Amer 66 mL/min >60 [facility] Work Phone: Comment on above: Non- GFR Calc Platelets bldon 09-26-2021 Platelets (Bld) [#/Vol] 230 10*3/uL 150-450 [facility] Work Phone: Serum or plasma albumin glo urement (mass/volume)on 09-26-2021 Albumin [Mass/Vol] 3.2 g/dL 3.2-5.0 [facility] Work Phone: Serum or plasma albumin/glob ulin mass ratioon 09-26-2021 Albumin/Globulin [Mass ratio] 0.9 {ratio} 0.9-2.4 [facility] Work Phone: Serum or plasma calcium glo urement (mass/volume)on 09-26-2021 Calcium [Mass/Vol] 8.5 mg/dL 8.5-10.1 [facility] Work Phone: Serum or plasma creatinine m easurement (mass/volume)on 09-26-2021 Creatinine [Mass/Vol] 0.88 mg/dL 0.55-1.02 [facility] Work Phone: Comment on above: The validity of the calculated GFR & GFRAA in patients over 70 years has not been determined. Clinical correlation is essential. Serum or plasma urea nitroge n measurement (mass/volume)on 09-26-2021 Urea nitrogen [Mass/Vol] 18 mg/dL 7-18 [facility] Work Phone: Thin prep Papanicolaou smear with manual screeningon 09-26-2021 Thin prep Papanicolaou smear with manual screening 18 U/L 15-37 [facility] Work Phone: Thin prep Papanicolaou smear with manual screening 6 5-15 [facility] Work Phone: XR Knee - right 4 Viewson IMPRESSION: Right knee osteoarthritis with chondrocalcinosis and small joint effusion. Business Analyst Intern: BO Transcribe Date/Time: Mar 26 2021 3:04P Dictated by : Catalina LONGO MD This examination was interpreted and the report reviewed and electronically signed by: Catalina LONGO MD on Mar 26 2021 3:08PM EST DIVISION OF RADIOLOGY * * *Final Report* [...] the right knee. DIVISION OF RADIOLOGY Provider, [facility] [place] - 03/26/2021 * * *Final Report* * [...] osteoarthritis with chondrocalcinosis and small joint effusion. Business Analyst Intern: PSCDu Transcribe Date/Time: Mar 26 2021 3:04P Dictated by : Catalina LONGO MD This examination was interpreted and the report reviewed and electronically signed by: Catalina LONGO MD on Mar 26 2021 3:08PM EST [facility] Radiology Study observation (narrative) Jerald ramírez [facility] XR Knee - right 4 ViewsOrder ed By: Ccf Provider on 03-26-2021 [facility] Cells counted [employer] (Bld/Ti ss) [#]on 01-06-2019 Differential Total Cells Counted Not Reportable [facility] Erythrocyte distribution wid th (RBC) [Entitic vol]on 01-06-2019 Red Cell Distribution Width Diff 45.1 fl High 35.1-43.9 [facility] Erythrocyte distribution wid th standard deviationon 01-06-2019 Erythrocyte distribution width (RBC) [Entitic vol] 45.1 fL 35.1-43.9 [facility] Laboratory - Hematology and Cell countson 01-06-2019 Erythrocyte distribution width (RBC) [Ratio] 13.4 % 11.6-14.6 [facility] Total cell counton 9 Cells counted [employer] (Bld/Tiss) [#] Not Reportable [facility] Lab Report: Basic Metabolic Profile (BMP)on 08-03-2017 Anion gap 9 mmol/L Invalid Interpretation Code 5-15 [facility] [employer] Work Phone: [phone] BUN/Creatinine Ratio 24.3 RATIO High 10-[address] [facility] [employer] Work Phone: [phone] Calcium 8.7 mg/dL Invalid Interpretation Code 8.5-10.1 [facility] [employer] Work Phone: [phone] Chloride 96 mmol/L Low 98-107 [facility] [employer] Work Phone: [phone] CO2 27.0 mmol/L Invalid Interpretation Code 21.0-32.0 [facility] [employer] Work Phone: [phone] Creatinine 0.86 mg/dL Invalid Interpretation Code 0.55-1.02 [facility] [employer] Work Phone: [phone] eGFR (non-black) 82 mL/min/{1.73_m2} Invalid Interpretation Code >60 [facility] [employer] Work Phone: [phone] eGFR (non-black) 68 mL/min/{1.73_m2} Invalid Interpretation Code >60 [facility] [employer] Work Phone: [phone] Glucose mass conc 87 mg/dL Invalid Interpretation Code 70-110 [facility] [employer] Work Phone: [phone] Potassium molar conc 4.6 mmol/L Invalid Interpretation Code 3.5-5.1 [facility] [employer] Work Phone: [phone] Sodium 132 mmol/L Low 136-145 [employer] Work Phone: [phone] Urea nitrogen 21 mg/dL High 7-18 [employer] Work Phone: [phone] Lab Report: Magnesiumon 07-16 Magnesium 2.2 mg/dL Invalid Interpretation Code 1.8-2.4 [employer] Work Phone: [phone] Office Visit: [facility] 08-03-20 Documentation of current medications (procedure) Done Invalid Interpretation Code [employer] Work Phone: [phone] Fall risk assessment No Invalid Interpretation Code [employer] Work Phone: [phone] Replaced Document: Neelima Arvizuon 08-03-2017 EKG QRS axis 55 deg Invalid Interpretation Code [employer] Work Phone: [phone] Interpretation Sinus Rhythm -RSR(V1) -nondiagnostic. PROBABLY NORMAL Invalid Interpretation Code [employer] Work Phone: [phone] P Marion 90 deg Invalid Interpretation Code [employer] Work Phone: [phone] NV Interval 196 ms Invalid Interpretation Code [employer] Work Phone: [phone] Pulse (Heart Rate) 66 /min Invalid Interpretation Code [employer] Work Phone: [phone] QRS Duration 100 ms Invalid Interpretation Code [employer] Work Phone: [phone] QT Interval new path ms Invalid Interpretation Code [employer] Work Phone: [phone] QTc Jacobsen 422 ms Invalid Interpretation Code [employer] Work Phone: [phone] T Marion 64 deg Invalid Interpretation Code [employer] Work Phone: [phone] Office Visit: post LN remova justin 06-16-2017 Alcoholism counseling (procedure) no Invalid Interpretation Code [employer] Work Phone: [phone] Dietary management education, guidance, and counseling (procedure) yes Invalid Interpretation Code [employer] Work Phone: [phone] Tobacco use CPHS Never smoker Invalid Interpretation Code [employer] Work Phone: [phone] Lab Report: CBC-Complete Blo od Cnt No Diffon 04-13-2017 Erythrocyte distribution width Auto Ratio (RBC) 13.2 % Invalid Interpretation Code 11.6-14.6 [facility] Work Phone: [phone] Erythrocytes (RBC) 4.10 10*6/uL Low 4.2-5.[address] [facility] Work Phone: [phone] Hematocrit (HCT) 37.8 % Invalid Interpretation Code 37-47 [facility] [employer] Work Phone: [phone] Hemoglobin mass conc (Bld) 12.6 g/dL Invalid Interpretation Code 12.0-15.0 [facility] Work Phone: [phone] MCH 30.7 pg Invalid Interpretation Code 27.0-32.0 [facility] Work Phone: [phone] MCHC mass conc (RBC) 33.3 G/GL Invalid Interpretation Code 32-36 [facility] [employer] Work Phone: [phone] MCV 92.2 fL Invalid Interpretation Code 81-99 [facility] [employer] Work Phone: [phone] Platelets 239 10*3/mm3 Invalid Interpretation Code 150-450 [facility] [employer] Work Phone: [phone] PMV by Uriel 9.6 fL Invalid Interpretation Code 6.2-12.0 [facility] [employer] Work Phone: [phone] RDW SD 44.5 fL High 35.1-43.9 [facility] [employer] Work Phone: [phone] WBC (Leukocytes) 4.7 10*3/uL Invalid Interpretation Code 4.4-11.0 [facility] [employer] Work Phone: [phone] Clinical Lists Update: 02-25-2017 Left ventricular Ejection fraction 60 % Invalid Interpretation Code [facility] [employer] Work Phone: [phone] Clinical Lists Update: 02-07-2016 eGFR (non-black) 97 mL/min/{1.73_m2} Invalid Interpretation Code [facility] [employer] Work Phone: [phone] eGFR (non-black) 81 mL/min/{1.73_m2} Invalid Interpretation Code [facility] [employer] Work Phone: [phone] Clinical Lists Update: 02-06-2016 Thyroid stimulating hormone (TSH) 5.70 u[iU]/mL High [employer] Work Phone: [phone] Thyroxine (T4) free 0.97 ng/dL Invalid Interpretation Code [employer] Work Phone: [phone] Lab Report: (P) Urinalysis, Completeon 02-05-2016 Bilirubin Ql (U) Negative Invalid Interpretation Code Negative [employer] Work Phone: [phone] NITRITE UR Negative Invalid Interpretation Code Negative [employer] Work Phone: [phone] OCCULT BLOOD-UR 10 High Negative [employer] Work Phone: [phone] specific gravity, urine 1.010 Invalid Interpretation Code 1.002-1.030 [employer] Work Phone: [phone] Urine, clarity Sl. Cloudy Invalid Interpretation Code Clear [employer] Work Phone: [phone] Urine, color Yellow Invalid Interpretation Code Yellow [employer] Work Phone: [phone] Urine, glucose presence Normal mg/dl Invalid Interpretation Code Normal [employer] Work Phone: [phone] Urine, ketones presence Negative Invalid Interpretation Code Negative [employer] Work Phone: [phone] Urine, leukocyte esterase presence 500 High Negative [employer] Work Phone: [phone] Urine, pH 7.0 [pH] Invalid Interpretation Code 5.0 - 8.0 [facility] Work Phone: [phone] Urine, protein Negative Invalid Interpretation Code Negative [facility] Work Phone: [phone] UROBILI Normal mg/dl Invalid Interpretation Code Normal [facility] Work Phone: [phone] Lab Report: Lipid Profileon 02-05-2016 Cholesterol 174 mg/dL Invalid Interpretation Code 200 [employer] Work Phone: [phone] HDL Cholesterol 96 mg/dL Invalid Interpretation Code [employer] Work Phone: [phone] LDL Cholesterol 68 mg/dL Invalid Interpretation Code 0-130 [facility] Work Phone: [phone] Triglyceride 52 mg/dL Invalid Interpretation Code [employer] Work Phone: [phone] very low density lipoproteins 10 mg/dL Invalid Interpretation Code 5-40 [facility] Work Phone: [phone] Lab Report: Liver Profileon 02-05-2016 Alanine aminotransferase (ALT) 26 U/L Invalid Interpretation Code 12-78 [employer] Work Phone: [phone] Albumin 3.1 g/dL Low 3.4-5.0 [employer] Work Phone: [phone] Alkaline phosphatase (ALP) 66 U/L Invalid Interpretation Code 50-136 [employer] Work Phone: [phone] Aspartate aminotransferase (AST) 28 U/L Invalid Interpretation Code 15-37 [employer] Work Phone: [phone] Bilirubin (direct) 0.20 mg/dL Invalid Interpretation Code 0.00-0.30 [employer] Work Phone: [phone] Bilirubin (total) 0.70 mg/dL Invalid Interpretation Code 0.20-1.00 [employer] Work Phone: [phone] Globulin 3.6 g/dL High 2.3-3.5 [employer] Work Phone: [phone] Protein 6.7 g/dL Invalid Interpretation Code 6.4-8.2 [employer] Work Phone: [phone] Lab Report: Osmolality, Seru mon 02-05-2016 Osmolality 265 mosm/kg Low 280-301 [employer] Work Phone: [phone] Lab Report: Osmolality, Urin robbie 02-05-2016 Urine, osmolality 360 mosm/kg Invalid Interpretation Code [employer] Work Phone: [phone] Lab Report: Urinalysis, Comp leteon 02-05-2016 Urine, bacteria in sediment RARE /hpf Invalid Interpretation Code None Seen [employer] Work Phone: [phone] Urine, epithelial cells in sediment 0-5 SEEN Invalid Interpretation Code 5-10 [employer] Work Phone: [phone] Urine, erythrocytes in sediment by volume 0-5 SEEN Invalid Interpretation Code 0-5 [employer] Work Phone: [phone] Urine, mucus presence in sediment 0 SEEN Invalid Interpretation Code [employer] Work Phone: [phone] WBC (Leukocytes) 5-10 SEEN Invalid Interpretation Code 0-5 [employer] Work Phone: [phone] Replaced Document: (P) Prote in+Creatinine Ratio,Urineon 02-05-2016 Protein [Mass] in Urine collected for unspecified duration 12.2 mg/dL High <11.9 [employer] Work Phone: [phone] protein/creatinine, urine, point, quantitative 172 MG/G CRE Invalid Interpretation Code 0-200 [employer] Work Phone: [phone] Urine, creatinine 71.00 mg/dL Invalid Interpretation Code NO RANGE EST. [employer] Work Phone: [phone] Replaced Document: (P) Urine Chlorideon 02-05-2016 UR CL 43 mmol/L Invalid Interpretation Code Not Establ. [employer] Work Phone: [phone] Replaced Document: (P) Urine Potassiumon 02-05-2016 Urine, potassium 46.0 mmol/L Invalid Interpretation Code Not Establ. [facility] Work Phone: [phone] Replaced Document: (P) Urine Sodiumon 02-05-2016 Urine, sodium 38 mmol/L Invalid Interpretation Code Not Establ. [facility] Work Phone: [phone] Office Visiton 08-30-2015 General cardiovascular disease 10Y risk [#] [place].D'Agostileana 2 % Invalid Interpretation Code [facility] Work Phone: [phone] Office Visiton 01-16-2015 cardiac risk group B Invalid Interpretation Code [facility] Phone: [phone] Coumadin Management: Jorden Alfonsoon 05-11-2014 INR Coag RelTime (Bld) Hospital lab Invalid Interpretation Code [facility] Work Phone: [phone] INR Coag RelTime (Bld) 2 to 3 Invalid Interpretation Code [facility] Work Phone: [phone] INR Coag RelTime (PPP) 2.8 {INR} Invalid Interpretation Code [facility] Work Phone: [phone] Prothrombin time (PT) Coag time (PPP) 29.4 s Invalid Interpretation Code [facility] Work Phone: [phone] Lab Report: PTon 05-11-2014 PTP 29.4 SECONDS High 11.7-14.9 [facility] Work Phone: Clinical Lists Update: Prelo alternative dispute resolution mediator 10-10-2013 basophils as percent of blood leukocytes, manual count 0.5 % Invalid Interpretation Code [facility] Work Phone: eosinophils as percent of blood leukocytes, manual count 0.7 % Invalid Interpretation Code [facility] Work Phone: [phone] Lymphocytes/100 leukocytes 28.9 % Invalid Interpretation Code [facility] Work Phone: [phone] Monocytes/100 leukocytes 14.7 % High [facility] Work Phone: [phone] neutrophils, band form as percent of blood leukocytes, manual count 55.2 % Invalid Interpretation Code [facility] Work Phone: [phone] Replaced Document: Neelima Salguero CG Observationson 10-10-2013 Pulse (Heart Rate) 442 ms Invalid Interpretation Code [facility] Work Phone: [phone] Influenza virus A and B and SARS-CoV-2 (COVID-19) Ag panel - Upper respiratory specim SARS-CoV-2 (COVID-19) RNA MIGUEL ANGEL+probe Ql (Resp) [facility] Work Phone: No Panel Information [facility] Vital Signs Date Time Vital Sign Value Performing Clinician Facility 05-18-2025 10:40-0400 Diastolic blood pressure 86 mm[Hg] Al Older ANTENNA RIGGER.ALMOND BLANCHER Work Phone: [facility] 05-18-2025 10:40-0400 Systolic blood pressure 136 mm[Hg] ANTENNA RIGGER.ALMOND BLANCHER Work Phone: [facility] 05-18-2025 10:06-0400 Body mass index (BMI) [Ratio] 19.58 kg/m2 ANTENNA RIGGER.ALMOND BLANCHER Work Phone: [facility] 05-18-2025 10:06-0400 Body weight 56.7 kg Al Older ANTENNA RIGGER.ALMOND BLANCHER Work Phone: [facility] 05-18-2025 10:06-0400 Heart rate 62 /min Al Older ANTENNA RIGGER.ALMOND BLANCHER Work Phone: [facility] 05-18-2025 10:06-0400 Respiratory rate 16 /min Al Nichole APRN.ALMOND BLANCHER Work Phone: [facility] 05-18-2025 10:06-0400 SaO2% (BldA) [Mass fraction] 99 % Al Nichole APRN.ALMOND BLANCHER Work Phone: [facility] 04-17-2025 09:23-0400 Body height 170.2 cm Melissa Mayorga ANTENNA RIGGER.ALMOND BLANCHER Work Phone: [facility] 04-17-2025 09:23-0400 Diastolic blood pressure 82 mm[Hg] Melissa Mayorga ANTENNA RIGGER.ALMOND BLANCHER Work Phone: [facility] 04-17-2025 09:23-0400 Heart rate 69 /min Melissa Mayorga ANTENNA RIGGER.ALMOND BLANCHER Work Phone: [facility] 04-17-2025 09:23-0400 Systolic blood pressure 151 mm[Hg] Melissa Mayorga ANTENNA RIGGER.ALMOND BLANCHER Work Phone: [facility] 04-03-2025 18:51-0400 Body mass index (BMI) [Ratio] 19.2 kg/m2 Saray Bowser APRN.ALMOND BLANCHER Work Phone: [facility] 04-03-2025 18:51-0400 Body temperature 96.91 [degF] Saray Bowser APRN.ALMOND BLANCHER Work Phone: [facility] 04-03-2025 18:51-0400 Body weight 55.6 kg Saray Bowser APRN.ALMOND BLANCHER Work Phone: [facility] 04-03-2025 18:51-0400 Diastolic blood pressure 60 mm[Hg] Saray Bowser APRN.ALMOND BLANCHER Work Phone: [facility] 04-03-2025 18:51-0400 Heart rate 62 /min Saray Bowser APRN.ALMOND BLANCHER Work Phone: [facility] 04-03-2025 18:51-0400 Respiratory rate 16 /min Sraay Bowser APRN.ALMOND BLANCHER Work Phone: [facility] 04-03-2025 18:51-0400 SaO2% (BldA) [Mass fraction] 100 % Saray Bowser ANTENNA RIGGER.ALMOND BLANCHER Work Phone: [facility] 04-03-2025 18:51-0400 Systolic blood pressure 102 mm[Hg] Saray Bowser ANTENNA RIGGER.ALMOND BLANCHER Work Phone: [facility] 03-06-2025 10:43-0400 Body mass index (BMI) [Ratio] 18.64 kg/m2 Rochelle Hackett MD Work Phone: [facility] 03-06-2025 10:43-0400 Body temperature 96.3 [degF] Rochelle Hackett MD Work Phone: [facility] 03-06-2025 10:43-0400 Body weight 53.98 kg Rochelle Hackett MD Work Phone: [facility] 03-06-2025 10:43-0400 Diastolic blood pressure 88 mm[Hg] Rochelle Hackett MD Work Phone: [facility] 03-06-2025 10:43-0400 Heart rate 64 /min Rochelle Hackett MD Work Phone: [facility] 03-06-2025 10:43-0400 Respiratory rate 18 /min Rochelle Hackett MD Work Phone: [facility] 03-06-2025 10:43-0400 SaO2% (BldA) [Mass fraction] 99 % Rochelle Hackett MD Work Phone: [facility] 03-06-2025 10:43-0400 Systolic blood pressure 154 mm[Hg] Rochelle Hackett MD Work Phone: [facility] 02-10-2025 08:39-0400 Body mass index (BMI) [Ratio] 19.08 kg/m2 Rochelle Hackett MD Work Phone: [facility] 02-10-2025 08:39-0400 Body weight 55.25 kg Rochelle Hackett MD Work Phone: [facility] 02-10-2025 08:39-0400 Diastolic blood pressure 71 mm[Hg] Rochelle Hackett MD Work Phone: [facility] 02-10-2025 08:39-0400 Heart rate 62 /min Rochelle Hackett MD Work Phone: [facility] 02-10-2025 08:39-0400 Respiratory rate 16 /min Rochelle Hackett MD Work Phone: [facility] 02-10-2025 08:39-0400 Systolic blood pressure 160 mm[Hg] Rochelle Hackett MD Work Phone: [facility] 11-08-2024 09:17-0500 Body height 170.2 cm Rochelle Hackett MD Work Phone: [facility] 11-08-2024 09:17-0500 Body mass index (BMI) [Ratio] 18.01 kg/m2 Rochelle Hackett MD Work Phone: [facility] 11-08-2024 09:17-0500 Body weight 52.16 kg Rochelle Hackett MD Work Phone: [facility] 11-08-2024 09:17-0500 Diastolic blood pressure 78 mm[Hg] Rochelle Hackett MD Work Phone: [facility] 11-08-2024 09:17-0500 Heart rate 73 /min Rochelle Hackett MD Work Phone: [facility] 11-08-2024 09:17-0500 SaO2% (BldA) [Mass fraction] 96 % Rochelle Hackett MD Work Phone: [facility] 11-08-2024 09:17-0500 Systolic blood pressure 110 mm[Hg] Rochelle Hackett MD Work Phone: [facility] 11-02-2024 12:11-0500 Body mass index (BMI) [Ratio] 18.79 kg/m2 Al Older ANTENNA RIGGER.ALMOND BLANCHER Work Phone: [facility] 11-02-2024 12:11-0500 Body weight 54.43 kg Al Older ANTENNA RIGGER.ALMOND BLANCHER Work Phone: [facility] 11-02-2024 12:11-0500 Diastolic blood pressure 70 mm[Hg] Al Older ANTENNA RIGGER.ALMOND BLANCHER Work Phone: [facility] 11-02-2024 12:11-0500 Heart rate 60 /min Al Older ANTENNA RIGGER.ALMOND BLANCHER Work Phone: [facility] 11-02-2024 12:11-0500 Respiratory rate 16 /min Al Older ANTENNA RIGGER.ALMOND BLANCHER Work Phone: [facility] 11-02-2024 12:11-0500 SaO2% (BldA) [Mass fraction] 98 % Al Older ANTENNA RIGGER.ALMOND BLANCHER Work Phone: [facility] 11-02-2024 12:11-0500 Systolic blood pressure 128 mm[Hg] Al Older ANTENNA RIGGER.ALMOND BLANCHER Work Phone: [facility] 10-30-2024 21:58-0500 Body temperature 97.8 [degF] Dr. Rochelle Hackett MD Work Phone: 0(727)007-405855 [place] [address] 10-30-2024 21:58-0500 Diastolic blood pressure 71 mm[Hg] Dr. Rochelle Hackett MD Work Phone: 3(574)859-659055 [place] [address] 10-30-2024 21:58-0500 Heart rate 73 /min Dr. Rochelle Hackett MD Work Phone: 5(692)034-951955 [place] [address] 10-30-2024 21:58-0500 Respiratory rate 18 /min Dr. Rochelle Hackett MD Work Phone: 5(888)441-686955 [place] [address] 10-30-2024 21:58-0500 SaO2% (BldA) [Mass fraction] 100 % Dr. Rochelle Hackett MD Work Phone: 5(613)053-017855 [place] [address] 10-30-2024 21:58-0500 Systolic blood pressure 166 mm[Hg] Dr. Rochelle Hackett MD Work Phone: 5(634)571-992255 [place] [address] 10-30-2024 19:58-0500 Body height 170.[address] Rochelle Hackett MD Work Phone: 9(095)021-399255 [place] [address] 10-30-2024 19:58-0500 Body mass index (BMI) [Ratio] 19.6 kg/m2 Dr. Rochelle Hackett MD Work Phone: 3(394)774-465900 [place] [address] 10-30-2024 19:58-0500 Body weight 56.[address] Rochelle Hackett MD Work Phone: 8(872)427-354300 [place] [address] 09-28-2024 16:53-0500 Body height 169.5 cm Maya Sal MD Work Phone: [facility] 09-28-2024 16:53-0500 Body mass index (BMI) [Ratio] 18.94 kg/m2 Maya Sal MD Work Phone: [facility] 09-28-2024 16:53-0500 Body weight 54.43 kg Maya Sal MD Work Phone: [facility] 09-20-2024 15:44-0500 Diastolic blood pressure 61 mm[Hg] Dr. Rochelle Hackett MD Work Phone: 2(297)357-150800 [place] [address] 09-20-2024 15:44-0500 Heart rate 67 /min Dr. Rochelle Hackett MD Work Phone: 7(974)489-194400 [place] [address] 09-20-2024 15:44-0500 Respiratory rate 16 /min Dr. Rochelle Hackett MD Work Phone: 9(902)346-292800 [place] [address] 09-20-2024 15:44-0500 SaO2% (BldA) [Mass fraction] 100 % Dr. Rochelle Hackett MD Work Phone: 3(400)543-336000 [place] [address] 09-20-2024 15:44-0500 Systolic blood pressure 152 mm[Hg] Dr. Rochelle Hackett MD Work Phone: 3(855)028-675800 [place] [address] 09-20-2024 14:48-0500 Body mass index (BMI) [Ratio] 18.7 kg/m2 Dr. Rochelle Hackett MD Work Phone: 1(306)669-717800 [place] [address] 09-20-2024 14:48-0500 Body weight 54.[address] Rochelle Hackett MD Work Phone: 7(273)617-415355 [place] [address] 09-09-2024 11:17-0500 Body mass index (BMI) [Ratio] 18.9 kg/m2 Dr. Rochelle Hackett MD Work Phone: 6(342)082-478855 [place] [address] 09-09-2024 11:17-0500 Body weight 54.[address] Rochelle Hackett MD Work Phone: 6(238)298-518500 [place] [address] 09-09-2024 11:17-0500 Diastolic blood pressure 74 mm[Hg] Dr. Rochelle Hackett MD Work Phone: 3(175)618-056600 [place] [address] 09-09-2024 11:17-0500 Heart rate 61 /min Dr. Rochelle Hackett MD Work Phone: 2(313)512-945300 [place] [address] 09-09-2024 11:17-0500 Respiratory rate 16 /min Dr. Rochelle Hackett MD Work Phone: 6(203)739-377455 [place] [address] 09-09-2024 11:17-0500 Systolic blood pressure 130 mm[Hg] Dr. Rochelle Hackett MD Work Phone: 6(682)236-009600 [place] [address] 05-18-2024 09:42-0400 Body mass index (BMI) [Ratio] 18.51 kg/m2 Rochelle Hackett MD Work Phone: [facility] 05-18-2024 09:42-0400 Body weight 53.62 kg Rochelle Hackett MD Work Phone: [facility] 05-18-2024 09:42-0400 Diastolic blood pressure 72 mm[Hg] Rochelle Hackett MD Work Phone: [facility] 05-18-2024 09:42-0400 Heart rate 68 /min Rochelle Hackett MD Work Phone: [facility] 05-18-2024 09:42-0400 Respiratory rate 16 /min Rochelle Hackett MD Work Phone: [facility] 05-18-2024 09:42-0400 Systolic blood pressure 128 mm[Hg] Rochelle Hackett MD Work Phone: [facility] 04-12-2024 09:04-0400 Body height 170.2 cm Rochelle Hackett MD Work Phone: [facility] 04-12-2024 09:04-0400 Body mass index (BMI) [Ratio] 18.48 kg/m2 Rochelle Hackett MD Work Phone: [facility] 04-12-2024 09:04-0400 Body weight 53.52 kg Rochelle Hackett MD Work Phone: [facility] 04-12-2024 09:04-0400 Diastolic blood pressure 74 mm[Hg] Rochelle Hackett MD Work Phone: [facility] 04-12-2024 09:04-0400 Heart rate 84 /min Rochelle Hackett MD Work Phone: [facility] 04-12-2024 09:04-0400 Respiratory rate 16 /min Rochelle Hackett MD Work Phone: [facility] 04-12-2024 09:04-0400 Systolic blood pressure 126 mm[Hg] Rochelle Hackett MD Work Phone: [facility] 03-28-2024 14:49-0400 Body temperature 96.7 [degF] Dr. Rochelle Hackett MD Work Phone: [facility] 01-23-2024 16:06-0400 Body temperature 98.1 [degF] Dr. Rochelle Hackett Work Phone: [facility] 01-23-2024 16:06-0400 Diastolic blood pressure 87 mm[Hg] Dr. Rochelle Hackett Work Phone: 4(340)509-207355 [place] [address] 01-23-2024 16:06-0400 Heart rate 80 /min Dr. Rochelle Hackett Work Phone: [facility] 01-23-2024 16:06-0400 Respiratory rate 18 /min Dr. Rochelle Hackett Work Phone: 5(102)031-919155 [place] [address] 01-23-2024 16:06-0400 SaO2% (BldA) [Mass fraction] 96 % Dr. Rochelle Hackett Work Phone: 2(731)120-526000 [place] [address] 01-23-2024 16:06-0400 Systolic blood pressure 172 mm[Hg] Dr. Rochelle Hackett Work Phone: 2(628)654-494500 [place] [address] 01-23-2024 14:06-0400 Body height 170.[address] Rochelle Hackett Work Phone: 4(992)413-131300 [place] [address] 01-23-2024 14:06-0400 Body mass index (BMI) [Ratio] 18.5 kg/m2 Dr. Rochelle Hackett Work Phone: 8(774)719-832600 [place] [address] 01-23-2024 14:06-0400 Body weight 53.[address] Rochelle Hackett Work Phone: 5(799)786-657600 [place] [address] 01-18-2024 11:10-0400 Body mass index (BMI) [Ratio] 18.3 kg/m2 Dr. Rochelle Hackett Work Phone: 1(131)964-346500 [place] [address] 01-18-2024 11:10-0400 Body weight 53.[address] Rochelle Hackett Work Phone: 8(985)865-603900 [place] [address] 01-18-2024 11:10-0400 Diastolic blood pressure 76 mm[Hg] Dr. Rochelle Hackett Work Phone: 4(404)129-477900 [place] [address] 01-18-2024 11:10-0400 Heart rate 62 /min Dr. Rochelle Hackett Work Phone: 7(595)592-825000 [place] [address] 01-18-2024 11:10-0400 Respiratory rate 18 /min Dr. Rochelle Hackett Work Phone: 5(083)840-150600 [place] [address] 01-18-2024 11:10-0400 SaO2% (BldA) [Mass fraction] 10 % Dr. Rochelle Hackett Work Phone: 8(551)665-755500 [place] [address] 01-18-2024 11:10-0400 Systolic blood pressure 141 mm[Hg] Dr. Rochelle Hackett Work Phone: 6(536)493-724600 [place] [address] 12-29-2023 13:45-0400 Body height 170.[address] Rochelle Hackett Work Phone: 7(996)348-300755 [place] [address] 12-29-2023 13:45-0400 Body mass index (BMI) [Ratio] 18.6 kg/m2 Dr. Rochelle Hackett Work Phone: 1(883)933-282555 [place] [address] 12-29-2023 13:45-0400 Body temperature 98 [degF] Dr. Rochelle Hackett Work Phone: 4(546)158-380655 [place] [address] 12-29-2023 13:45-0400 Body weight 54.[address] Rochelle Hackett Work Phone: 0(472)534-051500 [place] [address] 12-29-2023 13:45-0400 Diastolic blood pressure 72 mm[Hg] Dr. Rochelle Hackett Work Phone: 0(572)526-659555 [place] [address] 12-29-2023 13:45-0400 Heart rate 68 /min Dr. Rochelle Hackett Work Phone: 0(760)000-795155 [place] [address] 12-29-2023 13:45-0400 Respiratory rate 16 /min Dr. Rochelle Hackett Work Phone: 3(010)293-876055 [place] [address] 12-29-2023 13:45-0400 SaO2% (BldA) [Mass fraction] 99 % Dr. Rochelle Hackett Work Phone: [facility] 12-29-2023 13:45-0400 Systolic blood pressure 116 mm[Hg] Dr. Rochelle Hackett Work Phone: [facility] 12-15-2023 14:11-0400 Diastolic blood pressure 81 mm[Hg] Sara Rangel ANTENNA RIGGER[employer] Work Phone: [facility] 12-15-2023 14:11-0400 Heart rate 76 /min Sara Rangel ANTENNA RIGGER[employer] Work Phone: [facility] 12-15-2023 14:11-0400 Systolic blood pressure 145 mm[Hg] Sara Rangel ANTENNA RIGGER.[employer] Work Phone: [facility] 12-15-2023 14:09-0400 Body weight 53.52 kg Sara Rangel ANTENNA RIGGER.[employer] Work Phone: [facility] 12-15-2023 14:09-0400 Respiratory rate 16 /min Sara Juan Carlos GONZALEZCITY BUS DRIVER Work Phone: [facility] 12-08-2023 22:48-0400 Body temperature 98.7 [degF] Dr. Rochelle Hackett Work Phone: [facility] 12-08-2023 22:48-0400 Diastolic blood pressure 57 mm[Hg] Dr. Rochelle Hackett Work Phone: 2(534)518-871155 [place] [address] 12-08-2023 22:48-0400 Heart rate 70 /min Dr. Rochelle Hackett Work Phone: [facility] 12-08-2023 22:48-0400 Respiratory rate 17 /min Dr. Rochelle Hackett Work Phone: 5(147)890-431455 [place] [address] 12-08-2023 22:48-0400 SaO2% (BldA) [Mass fraction] 97 % Dr. Rochelle Hackett Work Phone: [facility] 12-08-2023 22:48-0400 Systolic blood pressure 137 mm[Hg] Dr. Rochelle Hackett Work Phone: 6(284)653-734255 [place] [address] 12-08-2023 20:29-0400 Body height 170.[address] Rochelle Hackett Work Phone: 7(167)280-091055 [place] [address] 12-08-2023 20:29-0400 Body mass index (BMI) [Ratio] 19.1 kg/m2 Dr. Rochelle Hackett Work Phone: 6(857)803-767955 [place] [address] 12-08-2023 20:29-0400 Body weight 55.[address] Rochelle Hackett Work Phone: 2(788)842-290755 [place] [address] 11-26-2023 13:47-0400 Body mass index (BMI) [Ratio] 18.8 kg/m2 Dr. Rochelle Hackett Work Phone: 3(054)727-680755 [place] [address] 11-26-2023 13:47-0400 Body temperature 98 [degF] Dr. Rochelle Hackett Work Phone: 0(181)414-318655 [place] [address] 11-26-2023 13:47-0400 Body weight 54.[address] Rochelle Hackett Work Phone: 6(822)689-339200 [place] [address] 11-26-2023 13:47-0400 Diastolic blood pressure 70 mm[Hg] Dr. Rochelle Hackett Work Phone: 9(602)436-561400 [place] [address] 11-26-2023 13:47-0400 Heart rate 67 /min Dr. Rochelle Hackett Work Phone: 4(310)766-258600 [place] [address] 11-26-2023 13:47-0400 Respiratory rate 17 /min Dr. Rochelle Hackett Work Phone: 2(932)178-075900 [place] [address] 11-26-2023 13:47-0400 SaO2% (BldA) [Mass fraction] 99 % Dr. Rochelle Hackett Work Phone: 5(077)511-754700 [place] [address] 11-26-2023 13:47-0400 Systolic blood pressure 122 mm[Hg] Dr. Rochelle Hackett Work Phone: 9(222)301-875000 [place] [address] 11-22-2023 16:13-0400 Body temperature 98.3 [degF] Dr. Rochelle Hackett Work Phone: 7(718)878-639600 [place] [address] 11-22-2023 16:13-0400 Diastolic blood pressure 49 mm[Hg] Dr. Rochelle Hackett Work Phone: 9(193)511-204700 [place] [address] 11-22-2023 16:13-0400 Heart rate 66 /min Dr. Rochelle Hackett Work Phone: 7(520)828-941100 [place] [address] 11-22-2023 16:13-0400 Respiratory rate 16 /min Dr. Rochelle Hackett Work Phone: 4(104)702-287300 [place] [address] 11-22-2023 16:13-0400 SaO2% (BldA) [Mass fraction] 97 % Dr. Rochelle Hackett Work Phone: 0(336)154-389700 [place] [address] 11-22-2023 16:13-0400 Systolic blood pressure 122 mm[Hg] Dr. Rochelle Hackett Work Phone: 9(358)195-993200 [place] [address] 11-22-2023 06:00-0400 Body mass index (BMI) [Ratio] 18 kg/m2 Dr. Rochelle Hackett Work Phone: 5(859)976-981400 [place] [address] 11-22-2023 06:00-0400 Body weight 52.[address] Rochelle Hackett Work Phone: 8(164)664-085000 [place] [address] 11-22-2023 01:29-0500 Body height 170.[address] Rochelle Hackett Work Phone: 1(340)159-488400 [place] [address] 11-21-2023 23:41-0500 Body temperature 97.6 [degF] Dr. Rochelle Hackett Work Phone: 2(281)566-041400 [place] [address] 11-21-2023 23:41-0500 Diastolic blood pressure 66 mm[Hg] Dr. Rochelle Hackett Work Phone: 6(199)436-539100 [place] [address] 11-21-2023 23:41-0500 Heart rate 78 /min Dr. Rochelle Hackett Work Phone: 6(477)356-684800 [place] [address] 11-21-2023 23:41-0500 Respiratory rate 17 /min Dr. Rochelle Hackett Work Phone: 3(834)269-842000 [place] [address] 11-21-2023 23:41-0500 SaO2% (BldA) [Mass fraction] 98 % Dr. Rochelle Hackett Work Phone: 4(832)993-815500 [place] [address] 11-21-2023 23:41-0500 Systolic blood pressure 135 mm[Hg] Dr. Rochelle Hackett Work Phone: 1(244)943-764600 [place] [address] 11-21-2023 19:36-0500 Body height 170.[address] Rochelle Hackett Work Phone: 4(178)823-591400 [place] [address] 11-21-2023 19:36-0500 Body mass index (BMI) [Ratio] 18.1 kg/m2 Dr. Rochelle Hackett Work Phone: 3(564)619-158800 [place] [address] 11-21-2023 19:36-0500 Body weight 52.[address] Rochelle Hackett Work Phone: 7(930)841-592500 [place] [address] 11-02-2023 15:20-0500 Body weight 53.66 kg Irish Kelvin [employer]TENNA RIGGER.ALMOND BLANCHER Work Phone: [facility] 11-02-2023 15:20-0500 Diastolic blood pressure 64 mm[Hg] Irish Kelvin [employer]TENNA RIGGER.ALMOND BLANCHER Work Phone: 6(999)236-969978 [place] [address] 11-02-2023 15:20-0500 Heart rate 64 /min Irish Kelvin [employer]ENNA RIGGER.ALMOND BLANCHER Work Phone: 3(290)539-406578 [place] [address] 11-02-2023 15:20-0500 Respiratory rate 16 /min Irish Kelvin [employer]TENNA RIGGER.ALMOND BLANCHER Work Phone: 7(027)455-886278 [place] [address] 11-02-2023 15:20-0500 SaO2% (BldA) [Mass fraction] 99 % Irish Kelvin ANTENNA RIGGER.ALMOND BLANCHER Work Phone: 0(217)301-924978 [place] [address] 11-02-2023 15:20-0500 Systolic blood pressure 122 mm[Hg] Irish Kelvin [employer]TENNA RIGGER.ALMOND BLANCHER Work Phone: 9(223)958-696478 [place] [address] 10-26-2023 13:47-0500 Body mass index (BMI) [Ratio] 18.7 kg/m2 Dr. Rochelle Hackett Work Phone: 4(941)080-371755 [place] [address] 10-26-2023 13:47-0500 Body temperature 97.8 [degF] Dr. Rochelle Hackett Work Phone: 6(644)940-529700 [place] [address] 10-26-2023 13:47-0500 Body weight 54.[address] Rochelle Hackett Work Phone: 6(556)834-274600 [place] [address] 10-26-2023 13:47-0500 Diastolic blood pressure 90 mm[Hg] Dr. Rochelle Hackett Work Phone: 1(620)943-766200 [place] [address] 10-26-2023 13:47-0500 Heart rate 68 /min Dr. Rochelle Hackett Work Phone: 2(451)962-574755 [place] [address] 10-26-2023 13:47-0500 Respiratory rate 17 /min Dr. Rochelle Hackett Work Phone: 5(638)804-606155 [place] [address] 10-26-2023 13:47-0500 SaO2% (BldA) [Mass fraction] 99 % Dr. Rochelle Hackett Work Phone: 9(129)155-585500 [place] [address] 10-26-2023 13:47-0500 Systolic blood pressure 144 mm[Hg] Dr. Rochelle Hackett Work Phone: 8(197)722-255800 [place] [address] 10-08-2023 11:39-0500 Body height 170.[address] Rochelle Hackett Work Phone: 8(329)312-667700 [place] [address] 10-08-2023 11:39-0500 Body mass index (BMI) [Ratio] 18.6 kg/m2 Dr. Rochelle Hackett Work Phone: 2(058)780-372000 [place] [address] 10-08-2023 11:39-0500 Body temperature 97.3 [degF] Dr. Rochelle Hackett Work Phone: 5(364)162-002400 [place] [address] 10-08-2023 11:39-0500 Body weight 54.[address] Rochelle Hackett Work Phone: 7(814)510-782500 [place] [address] 10-08-2023 11:39-0500 Diastolic blood pressure 82 mm[Hg] Dr. Rochelle Hackett Work Phone: 8(853)702-085000 [place] [address] 10-08-2023 11:39-0500 Heart rate 66 /min Dr. Rochelle Hackett Work Phone: 2(848)311-171400 [place] [address] 10-08-2023 11:39-0500 Respiratory rate 18 /min Dr. Rochelle Hackett Work Phone: 3(539)497-640600 [place] [address] 10-08-2023 11:39-0500 SaO2% (BldA) [Mass fraction] 99 % Dr. Rochelle Hackett Work Phone: 2(266)403-505600 [place] [address] 10-08-2023 11:39-0500 Systolic blood pressure 162 mm[Hg] Dr. Rochelle Hackett Work Phone: 3(571)348-211000 [place] [address] 10-01-2023 16:27-0500 Body temperature 98 [degF] Dr. Rochelle Hackett Work Phone: 9(730)567-510300 [place] [address] 10-01-2023 16:27-0500 Diastolic blood pressure 84 mm[Hg] Dr. Rochelle Hackett Work Phone: 5(590)712-589200 [place] [address] 10-01-2023 16:27-0500 Heart rate 67 /min Dr. Rochelle Hackett Work Phone: 6(207)875-869100 [place] [address] 10-01-2023 16:27-0500 Respiratory rate 16 /min Dr. Rochelle Hackett Work Phone: 6(068)459-754500 [place] [address] 10-01-2023 16:27-0500 SaO2% (BldA) [Mass fraction] 100 % Dr. Rochelle Hacktet Work Phone: 1(097)951-847600 [place] [address] 10-01-2023 16:27-0500 Systolic blood pressure 167 mm[Hg] Dr. Rochelle Hackett Work Phone: 8(119)589-129000 [place] [address] 10-01-2023 15:35-0500 Body mass index (BMI) [Ratio] 18.6 kg/m2 Dr. Rochelle Hackett Work Phone: 9(910)885-330300 [place] [address] 10-01-2023 14:00-0500 Body mass index (BMI) [Ratio] 18.6 kg/m2 Dr. Rochelle Hackett Work Phone: 5(354)157-130300 [place] [address] 10-01-2023 14:00-0500 Body temperature 97.6 [degF] Dr. Rochelle Hackett Work Phone: 5(212)860-710200 [place] [address] 10-01-2023 14:00-0500 Body weight 54.[address] Rochelle Hackett Work Phone: 1(113)078-865800 [place] [address] 10-01-2023 14:00-0500 Diastolic blood pressure 77 mm[Hg] Dr. Rochelle Hackett Work Phone: 0(682)278-946700 [place] [address] 10-01-2023 14:00-0500 Heart rate 67 /min Dr. Rochelle Hackett Work Phone: 8(526)195-119400 [place] [address] 10-01-2023 14:00-0500 Respiratory rate 18 /min Dr. Rochelle Hackett Work Phone: 4(680)729-384600 [place] [address] 10-01-2023 14:00-0500 SaO2% (BldA) [Mass fraction] 100 % Dr. Rochelle Hackett Work Phone: 4(642)866-706900 [place] [address] 10-01-2023 14:00-0500 Systolic blood pressure 143 mm[Hg] Dr. Rochelle Hackett Work Phone: 5(140)549-439500 [place] [address] 09-22-2023 09:51-0500 Diastolic blood pressure 70 mm[Hg] Dr. Rochelle Hackett Work Phone: 6(447)010-212400 [place] [address] 09-22-2023 09:51-0500 Heart rate 69 /min Dr. Rochelle Hackett Work Phone: 3(151)527-165200 [place] [address] 09-22-2023 09:51-0500 Systolic blood pressure 96 mm[Hg] Dr. Rochelle Hackett Work Phone: 6(442)358-075300 [place] [address] 09-22-2023 07:56-0500 Body mass index (BMI) [Ratio] 18.6 kg/m2 Dr. Rochelle Hackett Work Phone: 6(752)034-656000 [place] [address] 09-22-2023 07:56-0500 Body temperature 97.8 [degF] Dr. Rochelle Hackett Work Phone: 2(339)742-614800 [place] [address] 09-22-2023 07:56-0500 Body weight 53.[address] Rochelle Hackett Work Phone: 0(948)473-173500 [place] [address] 09-22-2023 07:56-0500 Respiratory rate 17 /min Dr. Rochelle Hackett Work Phone: 9(261)063-629900 [place] [address] 09-22-2023 07:56-0500 SaO2% (BldA) [Mass fraction] 98 % Dr. Rochelle Hackett Work Phone: 2(112)794-039500 [place] [address] 08-29-2023 11:51-0500 Body height 170.[address] Rochelle Hackett Work Phone: 3(595)184-584100 [place] [address] 08-29-2023 11:51-0500 Body temperature 98 [degF] Dr. Rochelle Hackett Work Phone: 8(346)008-896500 [place] [address] 08-29-2023 11:51-0500 Diastolic blood pressure 121 mm[Hg] Dr. Rochelle Hackett Work Phone: 2(093)080-309700 [place] [address] 08-29-2023 11:51-0500 Heart rate 78 /min Dr. Rochelle Hackett Work Phone: 8(807)291-518300 [place] [address] 08-29-2023 11:51-0500 Respiratory rate 18 /min Dr. Rochelle Hackett Work Phone: 3(385)707-224800 [place] [address] 08-29-2023 11:51-0500 SaO2% (BldA) [Mass fraction] 100 % Dr. Rochelle Hackett Work Phone: 5(098)178-038500 [place] [address] 08-29-2023 11:51-0500 Systolic blood pressure 154 mm[Hg] Dr. Rochelle Hackett Work Phone: 8(570)537-628100 [place] [address] 07-23-2023 11:16-0500 Body temperature 98 [degF] Dr. Rochelle Hackett Work Phone: 4(109)539-391100 [place] [address] 07-23-2023 11:16-0500 Diastolic blood pressure 70 mm[Hg] Dr. Rochelle Hackett Work Phone: 8(050)715-091000 [place] [address] 07-23-2023 11:16-0500 Heart rate 61 /min Dr. Rochelle Hackett Work Phone: 9(022)567-548900 [place] [address] 07-23-2023 11:16-0500 Respiratory rate 16 /min Dr. Rochelle Hackett Work Phone: 1(230)253-707600 [place] [address] 07-23-2023 11:16-0500 Systolic blood pressure 162 mm[Hg] Dr. Rochelle Hackett Work Phone: 2(219)266-096900 [place] [address] 07-23-2023 09:13-0500 Body mass index (BMI) [Ratio] 19 kg/m2 Dr. Rochelle Hackett Work Phone: 5(381)947-891900 [place] [address] 07-23-2023 09:13-0500 Body weight [address] Rochelle Hackett Work Phone: 0(025)526-177600 [place] [address] 07-23-2023 09:11-0500 Body height 170.[address] Rochelle Hackett Work Phone: 6(405)231-518755 [place] [address] 07-23-2023 09:11-0500 SaO2% (BldA) [Mass fraction] 100 % Dr. Rochelle Hackett Work Phone: 3(267)101-220300 [place] [address] 07-15-2023 09:07-0400 Body height 170.[address] Rochelle Hackett Work Phone: 3(086)750-256000 [place] [address] 07-15-2023 09:07-0400 Body mass index (BMI) [Ratio] 18.4 kg/m2 Dr. Rochelle Hackett Work Phone: 8(066)395-644500 [place] [address] 07-15-2023 09:07-0400 Body weight 53.[address] Rochelle Hackett Work Phone: 6(129)422-289000 [place] [address] 07-15-2023 09:07-0400 Diastolic blood pressure 79 mm[Hg] Dr. Rochelle Hackett Work Phone: 5(692)718-062600 [place] [address] 07-15-2023 09:07-0400 Heart rate 59 /min Dr. Rochelle Hackett Work Phone: 8(857)356-607900 [place] [address] 07-15-2023 09:07-0400 Respiratory rate 18 /min Dr. Rochelle Hackett Work Phone: 7(044)258-897300 [place] [address] 07-15-2023 09:07-0400 SaO2% (BldA) [Mass fraction] 100 % Dr. Rochelle Hackett Work Phone: 4(292)748-677500 [place] [address] 07-15-2023 09:07-0400 Systolic blood pressure 140 mm[Hg] Dr. Rochelle Hackett Work Phone: 7(206)513-051600 [place] [address] 07-09-2023 12:59-0400 Body weight 54.43 kg Al Older [employer]CH[employer] Work Phone: 3(449)814-347978 [place] [address] 07-09-2023 12:59-0400 Diastolic blood pressure 80 mm[Hg] Al Older [employer]GER.[employer]D BLANCHER Work Phone: 1(572)804-736678 [place] [address] 07-09-2023 12:59-0400 Heart rate 62 /min Al Older [employer]ENNA RIGGER.ALMOND BLANCHER Work Phone: [facility] 07-09-2023 12:59-0400 Respiratory rate 16 /min Al Older [employer]TENNA RIGGER.ALMOND BLANCHER Work Phone: [facility] 07-09-2023 12:59-0400 SaO2% (BldA) [Mass fraction] 99 % Al Older [employer]ENNA RIGGER.ALMOND BLANCHER Work Phone: [facility] 07-09-2023 12:59-0400 Systolic blood pressure 130 mm[Hg] Al Older [employer]ENNA RIGGER.ALMOND BLANCHER Work Phone: [facility] 05-08-2023 08:00-0400 Body temperature 97.39 [degF] Al Older [employer]NA RIGGER.ALMOND BLANCHER Work Phone: [facility] 05-08-2023 08:00-0400 Body weight 52.62 kg Al Older [employer]ENNA RIGGER.ALMOND BLANCHER Work Phone: [facility] 05-08-2023 08:00-0400 Diastolic blood pressure 80 mm[Hg] Al Older [employer]NA RIGGER.[employer]MOND BLANCHER Work Phone: [facility] 05-08-2023 08:00-0400 Heart rate 60 /min Al Older [employer]NA RIGGER.ALMOND BLANCHER Work Phone: [facility] 05-08-2023 08:00-0400 Respiratory rate 16 /min Al Older [employer]TENNA RIGGER.ALMOND BLANCHER Work Phone: [facility] 05-08-2023 08:00-0400 Systolic blood pressure 128 mm[Hg] Al Older [employer]NA RIGGER.ALMOND BLANCHER Work Phone: [facility] 04-25-2023 19:22-0400 Diastolic blood pressure 82 mm[Hg] Dr. Rochelle Hackett Work Phone: [facility] 04-25-2023 19:22-0400 Heart rate 86 /min Dr. Rochelle Hackett Work Phone: [facility] 04-25-2023 19:22-0400 Respiratory rate 16 /min Dr. Rochelle Hackett Work Phone: [facility] 04-25-2023 19:22-0400 SaO2% (BldA) [Mass fraction] 98 % Dr. Rochelle Hackett Work Phone: 8(912)378-676800 [place] [address] 04-25-2023 19:22-0400 Systolic blood pressure 136 mm[Hg] Dr. Rochelle Hackett Work Phone: 2(687)455-010300 [place] [address] 04-25-2023 16:13-0400 Body height 170.[address] Rochelle Hackett Work Phone: 3(787)083-070900 [place] [address] 04-25-2023 16:13-0400 Body mass index (BMI) [Ratio] 18.3 kg/m2 Dr. Rochelle Hackett Work Phone: 1(616)254-868500 [place] [address] 04-25-2023 16:13-0400 Body temperature 97.1 [degF] Dr. Rochelle Hackett Work Phone: 8(396)235-935100 [place] [address] 04-25-2023 16:13-0400 Body weight 53.[address] Rochelle Hackett Work Phone: 8(433)210-623100 [place] [address] 04-23-2023 09:33-0400 Body mass index (BMI) [Ratio] 18.5 kg/m2 Dr. Rochelle Hackett Work Phone: 3(498)143-029400 [place] [address] 04-23-2023 09:33-0400 Body weight 53.[address] Rochelle Hackett Work Phone: 4(071)511-199600 [place] [address] 04-23-2023 09:33-0400 Diastolic blood pressure 67 mm[Hg] Dr. Rochelle Hackett Work Phone: 6(855)710-499200 [place] [address] 04-23-2023 09:33-0400 Heart rate 68 /min Dr. Rochelle Hackett Work Phone: 8(594)515-719000 [place] [address] 04-23-2023 09:33-0400 Respiratory rate 18 /min Dr. Rochelle Hackett Work Phone: 8(272)520-754300 [place] [address] 04-23-2023 09:33-0400 SaO2% (BldA) [Mass fraction] 100 % Dr. Rochelle Hackett Work Phone: 0(982)162-555400 [place] [address] 04-23-2023 09:33-0400 Systolic blood pressure 130 mm[Hg] Dr. Rochelle Hackett Work Phone: [facility] 04-16-2023 07:19-0400 Diastolic blood pressure 82 mm[Hg] Sara Rangel [employer]GER[employer] Work Phone: [facility] 04-16-2023 07:19-0400 Systolic blood pressure 138 mm[Hg] Sara Rangel [employer]GER[employer] Work Phone: [facility] 04-16-2023 07:13-0400 Body temperature 96.01 [degF] Sara Rangel [employer]GER[employer] Work Phone: [facility] 04-16-2023 07:13-0400 Body weight 53.52 kg Sara Rangel [employer]GER[employer] Work Phone: [facility] 04-16-2023 07:13-0400 Heart rate 66 /min Sara Rangel [employer]NA [employer]GER[employer] Work Phone: [facility] 04-16-2023 07:13-0400 Respiratory rate 18 /min Sara Rangel [employer]NA [employer]GER.[employer] Work Phone: [facility] 04-16-2023 07:13-0400 SaO2% (BldA) [Mass fraction] 99 % [facility] Work Phone: [facility] 04-09-2023 15:50-0400 Body height 170.[address] Rochelle Hackett Work Phone: [facility] 04-09-2023 15:50-0400 Body mass index (BMI) [Ratio] 18.6 kg/m2 Dr. Rochelle Hackett Work Phone: [facility] 04-09-2023 15:50-0400 Body weight 53.[address] Rochelle Hackett Work Phone: [facility] 04-09-2023 14:34-0400 Body mass index (BMI) [Ratio] 18.6 kg/m2 Dr. Rochelle Hackett Work Phone: [facility] 04-09-2023 14:34-0400 Body temperature 97.1 [degF] Dr. Rochelle Hackett Work Phone: 2(969)183-060500 [place] [address] 04-09-2023 14:34-0400 Body weight 53.[address] Rochelle Hackett Work Phone: 6(905)663-777500 [place] [address] 04-09-2023 14:34-0400 Diastolic blood pressure 76 mm[Hg] Dr. Rochelle aHckett Work Phone: 0(199)816-697200 [place] [address] 04-09-2023 14:34-0400 Heart rate 56 /min Dr. Rochelle Hackett Work Phone: 0(032)942-073100 [place] [address] 04-09-2023 14:34-0400 Respiratory rate 16 /min Dr. Rochelle Hackett Work Phone: 5(123)218-560600 [place] [address] 04-09-2023 14:34-0400 SaO2% (BldA) [Mass fraction] 100 % Dr. Rochelle Hackett Work Phone: 2(981)409-818000 [place] [address] 04-09-2023 14:34-0400 Systolic blood pressure 150 mm[Hg] Dr. Rochelle Hackett Work Phone: 7(435)129-051400 [place] [address] 04-08-2023 19:34-0400 Diastolic blood pressure 78 mm[Hg] Dr. Rochelle Hackett Work Phone: 5(203)107-382600 [place] [address] 04-08-2023 19:34-0400 Heart rate 64 /min Dr. Rochelle Hackett Work Phone: 6(842)139-108500 [place] [address] 04-08-2023 19:34-0400 Respiratory rate 14 /min Dr. Rochelle Hackett Work Phone: 5(239)248-530600 [place] [address] 04-08-2023 19:34-0400 SaO2% (BldA) [Mass fraction] 100 % Dr. Rochelle Hackett Work Phone: 3(669)298-038200 [place] [address] 04-08-2023 19:34-0400 Systolic blood pressure 119 mm[Hg] Dr. Rochelle Hackett Work Phone: 7(242)580-957700 [place] [address] 04-08-2023 14:05-0400 Body height 170.[address] Rochelle Hackett Work Phone: 7(700)933-714100 [place] [address] 04-08-2023 14:05-0400 Body mass index (BMI) [Ratio] 18.5 kg/m2 Dr. Rochelle Hackett Work Phone: 1(074)004-443000 [place] [address] 04-08-2023 14:05-0400 Body temperature 97.7 [degF] Dr. Rochelle Hackett Work Phone: 9(026)360-379200 [place] [address] 04-08-2023 14:05-0400 Body weight 53.[address] Rochelle Hackett Work Phone: 6(590)403-321000 [place] [address] 04-07-2023 19:13-0400 Diastolic blood pressure 70 mm[Hg] Dr. Rochelle Hackett Work Phone: 0(514)765-300400 [place] [address] 04-07-2023 19:13-0400 Heart rate 65 /min Dr. Rochelle Hackett Work Phone: 5(178)499-817800 [place] [address] 04-07-2023 19:13-0400 Systolic blood pressure 126 mm[Hg] Dr. Rochelle Hackett Work Phone: 8(117)699-296800 [place] [address] 04-07-2023 13:38-0400 Body mass index (BMI) [Ratio] 18.5 kg/m2 Dr. Rochelle Hackett Work Phone: 8(459)875-168500 [place] [address] 04-07-2023 13:38-0400 Body temperature 97.6 [degF] Dr. Rochelle Hackett Work Phone: 4(388)871-231500 [place] [address] 04-07-2023 13:38-0400 Body weight 53.[address] Rochelle Hackett Work Phone: 3(685)161-648500 [place] [address] 04-07-2023 13:38-0400 Respiratory rate 16 /min Dr. Rochelle Hackett Work Phone: 4(782)622-171100 [place] [address] 04-07-2023 13:38-0400 SaO2% (BldA) [Mass fraction] 99 % Dr. Rochelle Hackett Work Phone: 1(829)475-013400 [place] [address] 01-19-2023 11:06-0400 Diastolic blood pressure 60 mm[Hg] Dr. Rochelle Hackett Work Phone: [facility] 01-19-2023 11:06-0400 Systolic blood pressure 110 mm[Hg] Dr. Rochelle Hackett Work Phone: [facility] 01-19-2023 11:06-0400 Body mass index (BMI) [Ratio] 18.3 kg/m2 Dr. Rochelle Hackett Work Phone: [facility] 01-19-2023 11:06-0400 Body weight 53.[address] Rochelle Hackett Work Phone: 4(441)507-282255 [place] [address] 01-19-2023 11:06-0400 Heart rate 62 /min Dr. Rochelle Hackett Work Phone: [facility] 01-19-2023 11:06-0400 Respiratory rate 18 /min Dr. Rochelle Hackett Work Phone: [facility] 01-19-2023 11:06-0400 SaO2% (BldA) [Mass fraction] 100 % Dr. Rochelle Hackett Work Phone: [facility] 11-14-2022 08:33-0500 Body height 170.2 cm Rochelle Hackett MD Work Phone: [facility] 11-14-2022 08:33-0500 Body temperature 96.01 [degF] Rochelle Hackett MD Work Phone: [facility] 11-14-2022 08:33-0500 Body weight 51.71 kg Rochelle Hackett MD Work Phone: [facility] 11-14-2022 08:33-0500 Diastolic blood pressure 62 mm[Hg] Rochelle Hackett MD Work Phone: [facility] 11-14-2022 08:33-0500 Heart rate 64 /min Rochelle Hackett MD Work Phone: [facility] 11-14-2022 08:33-0500 Respiratory rate 12 /min Rochelle Hackett MD Work Phone: [facility] 11-14-2022 08:33-0500 SaO2% (BldA) [Mass fraction] 100 % Rochelle Hackett MD Work Phone: [facility] 11-14-2022 08:33-0500 Systolic blood pressure 122 mm[Hg] Rochelle Hackett MD Work Phone: 4(592)408-296878 [place] [address] 10-14-2022 17:14-0500 Diastolic blood pressure 58 mm[Hg] Dr. Rochelle Hackett Work Phone: 4(961)155-909500 [place] [address] 10-14-2022 17:14-0500 Heart rate 82 /min Dr. Rochelle Hackett Work Phone: 4(388)739-838800 [place] [address] 10-14-2022 17:14-0500 Systolic blood pressure 110 mm[Hg] Dr. Rochelle Hackett Work Phone: 6(645)957-159900 [place] [address] 10-14-2022 13:59-0500 Body height 170.[address] Rochelle Hackett Work Phone: 9(696)267-903900 [place] [address] 10-14-2022 13:59-0500 Body mass index (BMI) [Ratio] 18.7 kg/m2 Dr. Rochelle Hackett Work Phone: 9(262)701-138200 [place] [address] 10-14-2022 13:59-0500 Body temperature 98.4 [degF] Dr. Rochelle Hackett Work Phone: 6(917)974-148600 [place] [address] 10-14-2022 13:59-0500 Body weight 54.[address] Rochelle Hackett Work Phone: 2(369)554-491200 [place] [address] 10-14-2022 13:59-0500 Respiratory rate 17 /min Dr. Rochelle Hackett Work Phone: 7(088)978-884100 [place] [address] 10-14-2022 13:59-0500 SaO2% (BldA) [Mass fraction] 99 % Dr. Rochelle Hackett Work Phone: 5(387)416-390100 [place] [address] 10-08-2022 13:27-0500 Body mass index (BMI) [Ratio] 18.3 kg/m2 Dr. Rochelle Hackett Work Phone: 3(962)030-836755 [place] [address] 10-08-2022 13:27-0500 Body temperature 97.4 [degF] Dr. Rochelle Hackett Work Phone: 9(708)325-187100 [place] [address] 10-08-2022 13:27-0500 Body weight 53.[address] Rochelle Hackett Work Phone: 5(617)872-909400 [place] [address] 10-08-2022 13:27-0500 Diastolic blood pressure 81 mm[Hg] Dr. Rochelle Hackett Work Phone: 8(982)088-543700 [place] [address] 10-08-2022 13:27-0500 Heart rate 65 /min Dr. Rochelle Hackett Work Phone: 6(264)886-831300 [place] [address] 10-08-2022 13:27-0500 Respiratory rate 16 /min Dr. Rochelle Hackett Work Phone: 7(630)791-465800 [place] [address] 10-08-2022 13:27-0500 SaO2% (BldA) [Mass fraction] 97 % Dr. Rochelle Hackett Work Phone: 8(768)294-884200 [place] [address] 10-08-2022 13:27-0500 Systolic blood pressure 149 mm[Hg] Dr. Rochelle Hackett Work Phone: 2(127)784-400600 [place] [address] 09-05-2022 17:40-0500 Body temperature 98.4 [degF] Ron Wong MD Work Phone: 4(908)398-369478 [place] [address] 09-05-2022 17:40-0500 Body weight 53.43 kg Ron Wong MD Work Phone: 8(278)273-775178 [place] [address] 09-05-2022 17:40-0500 Diastolic blood pressure 82 mm[Hg] Ron Wong MD Work Phone: 3(861)323-600478 [place] [address] 09-05-2022 17:40-0500 Heart rate 70 /min Ron Wong MD Work Phone: 4(232)942-119678 [place] [address] 09-05-2022 17:40-0500 Respiratory rate 18 /min Ron Wong MD Work Phone: 3(296)334-594878 [place] [address] 09-05-2022 17:40-0500 SaO2% (BldA) [Mass fraction] 99 % Ron Wong MD Work Phone: [facility] 09-05-2022 17:40-0500 Systolic blood pressure 138 mm[Hg] Ron Wong MD Work Phone: [facility] 08-19-2022 08:52-0500 Body temperature 97.59 [degF] Lori Patel APRN.[employer] Work Phone: [facility] 08-19-2022 08:52-0500 Body weight 52.34 kg Lori Patel APRN.[employer]D BLANCHER Work Phone: [facility] 08-19-2022 08:52-0500 Diastolic blood pressure 84 mm[Hg] Lori Patel APRN.[employer]D BLANCHER Work Phone: [facility] 08-19-2022 08:52-0500 Heart rate 74 /min Lori Patel APRN.[employer]D BLANCHER Work Phone: [facility] 08-19-2022 08:52-0500 Respiratory rate 18 /min Lori Patel APRN.[employer] BLANCHER Work Phone: [facility] 08-19-2022 08:52-0500 SaO2% (BldA) [Mass fraction] 99 % Lori Patel APRN.[employer] BLANCHER Work Phone: [facility] 08-19-2022 08:52-0500 Systolic blood pressure 144 mm[Hg] Lori Patel APRN.[employer] BL[employer]CHER Work Phone: [facility] 08-17-2022 05:46-0500 Diastolic blood pressure 72 mm[Hg] Dr. Rochelle Hackett Work Phone: [facility] 08-17-2022 05:46-0500 Heart rate 82 /min Dr. Rochelle Hackett Work Phone: [facility] 08-17-2022 05:46-0500 Respiratory rate 16 /min Dr. Rochelle Hackett Work Phone: [facility] 08-17-2022 05:46-0500 SaO2% (BldA) [Mass fraction] 98 % Dr. Rochelle Hackett Work Phone: [facility] 08-17-2022 05:46-0500 Systolic blood pressure 139 mm[Hg] Dr. Rochelle Hackett Work Phone: [facility] 08-17-2022 00:16-0500 Body height 170.[address] Rochelle Hackett Work Phone: [facility] Work Phone: 08-17-2022 00:16-0500 Body mass index (BMI) [Ratio] 18.6 kg/m2 Dr. Rochelle Hackett Work Phone: [facility] 08-17-2022 00:16-0500 Body temperature 97.7 [degF] Dr. Rochelle Hackett Work Phone: [facility] 08-17-2022 00:16-0500 Body weight [address] Rochelle Hackett Work Phone: [facility] 07-11-2022 11:25-0400 Body temperature 97.5 [degF] Justine Athy PA-C Work Phone: [facility] 07-11-2022 11:25-0400 Body weight 55.07 kg Justine Athy PA-C Work Phone: [facility] 07-11-2022 11:25-0400 Diastolic blood pressure 82 mm[Hg] Justine Athy PA-C Work Phone: [facility] 07-11-2022 11:25-0400 Heart rate 68 /min Justine Athy PA-C Work Phone: [facility] 07-11-2022 11:25-0400 Respiratory rate 18 /min Justine Athy PA-C Work Phone: [facility] 07-11-2022 11:25-0400 SaO2% (BldA) [Mass fraction] 100 % Justine Athy PA-C Work Phone: [facility] 07-11-2022 11:25-0400 Systolic blood pressure 132 mm[Hg] Justine Athy PA-C Work Phone: [facility] 07-07-2022 10:05-0400 Body temperature 97.81 [degF] Sofía Bogner PA-C Work Phone: [facility] 07-07-2022 10:05-0400 Body weight 53.98 kg Sofía Bogner PA-C Work Phone: [facility] 07-07-2022 10:05-0400 Diastolic blood pressure 68 mm[Hg] Sofía Bogner PA-C Work Phone: [facility] 07-07-2022 10:05-0400 Heart rate 66 /min Sofía Bogner PA-C Work Phone: [facility] 07-07-2022 10:05-0400 Respiratory rate 16 /min Sofía Bogner PA-C Work Phone: [facility] 07-07-2022 10:05-0400 SaO2% (BldA) [Mass fraction] 100 % Sofía Bogner PA-C Work Phone: [facility] 07-07-2022 10:05-0400 Systolic blood pressure 122 mm[Hg] Sofía Bogner PA-C Work Phone: [facility] 07-02-2022 10:32-0400 Body mass index (BMI) [Ratio] 18.6 kg/m2 Dr. Rochelle Hackett Work Phone: [facility] Work Phone: 07-02-2022 10:32-0400 Body weight 53.[address] Rochelle Hackett Work Phone: [facility] Work Phone: 07-02-2022 10:32-0400 Diastolic blood pressure 83 mm[Hg] Dr. Rochelle Hackett Work Phone: [facility] Work Phone: 07-02-2022 10:32-0400 Heart rate 58 /min Dr. Rochelle Hackett Work Phone: [facility] Work Phone: 07-02-2022 10:32-0400 Respiratory rate 18 /min Dr. Rochelle Hackett Work Phone: [facility] Work Phone: 07-02-2022 10:32-0400 SaO2% (BldA) [Mass fraction] 100 % Dr. Rochelle Hackett Work Phone: [facility] Work Phone: 07-02-2022 10:32-0400 Systolic blood pressure 147 mm[Hg] Dr. Rochelle Hackett Work Phone: [facility] Work Phone: 06-06-2022 17:58-0400 Body height 170.[address] Rochelle Hackett Work Phone: [facility] Work Phone: 06-06-2022 17:58-0400 Body mass index (BMI) [Ratio] 18.8 kg/m2 Dr. Rochelle Hackett Work Phone: [facility] Work Phone: 06-06-2022 17:58-0400 Body temperature 97.3 [degF] Dr. Rochelle Hackett Work Phone: [facility] Work Phone: 06-06-2022 17:58-0400 Body weight 54.[address] Rochelle Hackett Work Phone: [facility] Work Phone: 06-06-2022 17:58-0400 Diastolic blood pressure 78 mm[Hg] Dr. Rochelle Hackett Work Phone: [facility] Work Phone: 06-06-2022 17:58-0400 Heart rate 66 /min Dr. Rochelle Hackett Work Phone: [facility] Work Phone: 06-06-2022 17:58-0400 Respiratory rate 15 /min Dr. Rochelle Hackett Work Phone: [facility] Work Phone: 06-06-2022 17:58-0400 SaO2% (BldA) [Mass fraction] 99 % Dr. Rochelle Hcakett Work Phone: [facility] Work Phone: 06-06-2022 17:58-0400 Systolic blood pressure 128 mm[Hg] Dr. Rochelle Hackett Work Phone: [facility] Work Phone: 05-29-2022 14:10-0400 Diastolic blood pressure 80 mm[Hg] Dr. Rochelle Hackett Work Phone: [facility] Work Phone: 05-29-2022 14:10-0400 Systolic blood pressure 154 mm[Hg] Dr. Rochelle Hackett Work Phone: [facility] Work Phone: 05-29-2022 11:19-0400 Body height 170.[address] Rochelle Hackett Work Phone: [facility] Work Phone: 05-29-2022 11:19-0400 Body mass index (BMI) [Ratio] 18.8 kg/m2 Dr. Rochelle Hackett Work Phone: [facility] Work Phone: 05-29-2022 11:19-0400 Body temperature 98.2 [degF] Dr. Rochelle Hackett Work Phone: [facility] Work Phone: 05-29-2022 11:19-0400 Body weight 54.[address] Rochelle Hackett Work Phone: [facility] Work Phone: 05-29-2022 11:19-0400 Heart rate 63 /min Dr. Rochelle Hackett Work Phone: [facility] Work Phone: 05-29-2022 11:19-0400 Respiratory rate 15 /min Dr. Rochelle Hackett Work Phone: [facility] Work Phone: 05-29-2022 11:19-0400 SaO2% (BldA) [Mass fraction] 99 % Dr. Rochelle Hackett Work Phone: [facility] Work Phone: 05-16-2022 08:47-0400 Body height 170.2 cm Rochelle Hackett MD Work Phone: [facility] 05-16-2022 08:47-0400 Body temperature 96.8 [degF] Rochelle Hackett MD Work Phone: [facility] 05-16-2022 08:47-0400 Body weight 53.52 kg Rochelle Hackett MD Work Phone: [facility] 05-16-2022 08:47-0400 Diastolic blood pressure 70 mm[Hg] Rochelle Hackett MD Work Phone: [facility] 05-16-2022 08:47-0400 Heart rate 62 /min Rochelle Hackett MD Work Phone: [facility] 05-16-2022 08:47-0400 Respiratory rate 12 /min Rochelle Hackett MD Work Phone: [facility] 05-16-2022 08:47-0400 SaO2% (BldA) [Mass fraction] 99 % Rochelle Hackett MD Work Phone: [facility] 05-16-2022 08:47-0400 Systolic blood pressure 110 mm[Hg] Rochelle Hackett MD Work Phone: [facility] 05-14-2022 11:37-0400 Body height 170.[address] Rochelle Hackett Work Phone: [facility] Work Phone: 04-21-2022 15:33-0400 Body height 170.2 cm Jessy Pina PA-C Work Phone: [facility] 04-21-2022 15:33-0400 Body weight 53.07 kg Jessy Pina PA-C Work Phone: [facility] 04-09-2022 11:26-0400 Body mass index (BMI) [Ratio] 18.3 kg/m2 Dr. Rochelle Hackett Work Phone: [facility] Work Phone: 04-09-2022 11:26-0400 Body temperature 97.4 [degF] Dr. Rochelle Hackett Work Phone: [facility] Work Phone: 04-09-2022 11:26-0400 Body weight 53.[address] Rochelle Hackett Work Phone: [facility] Work Phone: 04-09-2022 11:26-0400 Diastolic blood pressure 82 mm[Hg] Dr. Rochelle Hackett Work Phone: [facility] Work Phone: 04-09-2022 11:26-0400 Heart rate 57 /min Dr. Rochelle Hackett Work Phone: [facility] Work Phone: 04-09-2022 11:26-0400 Respiratory rate 16 /min Dr. Rochelle Hackett Work Phone: [facility] Work Phone: 04-09-2022 11:26-0400 SaO2% (BldA) [Mass fraction] 100 % Dr. Rochelle Hackett Work Phone: [facility] Work Phone: 04-09-2022 11:26-0400 Systolic blood pressure 182 mm[Hg] Dr. Rochelle Hackett Work Phone: [facility] Work Phone: 03-18-2022 09:17-0400 Body height 170.[address] Rochelle Hackett Work Phone: [facility] Work Phone: 03-18-2022 09:17-0400 Body mass index (BMI) [Ratio] 18.8 kg/m2 Dr. Rochelle Hackett Work Phone: [facility] Work Phone: 03-18-2022 09:17-0400 Body weight 54.[address] Rochelle Hackett Work Phone: [facility] Work Phone: 03-18-2022 09:17-0400 Diastolic blood pressure 78 mm[Hg] Dr. Rochelle Hackett Work Phone: [facility] Work Phone: 03-18-2022 09:17-0400 Heart rate 57 /min Dr. Rochelle Hackett Work Phone: [facility] Work Phone: 03-18-2022 09:17-0400 Respiratory rate 18 /min Dr. Rochelle Hackett Work Phone: [facility] Work Phone: 03-18-2022 09:17-0400 SaO2% (BldA) [Mass fraction] 95 % Dr. Rochelle Hackett Work Phone: [facility] Work Phone: 03-18-2022 09:17-0400 Systolic blood pressure 129 mm[Hg] Dr. Rochelle Hackett Work Phone: [facility] Work Phone: 02-07-2022 10:14-0400 Body temperature 97.59 [degF] Alice Jenkins APRN.ALMOND BLANCHER Work Phone: [facility] 02-07-2022 10:14-0400 Body weight 54.7 kg Alice Jenkins APRN.ALMOND BLANCHER Work Phone: [facility] 02-07-2022 10:14-0400 Diastolic blood pressure 70 mm[Hg] Alice Gregory ANTENNA RIGGER.ALMOND BLANCHER Work Phone: [facility] 02-07-2022 10:14-0400 Heart rate 60 /min Alice Gregory ANTENNA RIGGER.ALMOND BLANCHER Work Phone: [facility] 02-07-2022 10:14-0400 Respiratory rate 16 /min Alice Gregory ANTENNA RIGGER.ALMOND BLANCHER Work Phone: [facility] 02-07-2022 10:14-0400 SaO2% (BldA) [Mass fraction] 100 % Alice Gregory ANTENNA RIGGER.ALMOND BLANCHER Work Phone: [facility] 02-07-2022 10:14-0400 Systolic blood pressure 126 mm[Hg] Alice Gregory ANTENNA RIGGER.ALMOND BLANCHER Work Phone: [facility] 11-25-2021 19:28-0400 Diastolic blood pressure 92 mm[Hg] Dr. Rochelle Hackett Work Phone: [facility] Work Phone: 11-25-2021 19:28-0400 Systolic blood pressure 142 mm[Hg] Dr. Rochelle Hackett Work Phone: [facility] Work Phone: 11-25-2021 19:28-0400 Diastolic blood pressure 92 mm[Hg] Dr. Rochelle Hackett Work Phone: [facility] Work Phone: 11-25-2021 19:28-0400 Systolic blood pressure 142 mm[Hg] Dr. Rochelle Hackett Work Phone: [facility] Work Phone: 11-25-2021 13:05-0400 Body temperature 98.2 [degF] Dr. Rochelle Hackett Work Phone: [facility] Work Phone: 11-25-2021 13:05-0400 Heart rate 50 /min Dr. Rochelle Hackett Work Phone: [facility] Work Phone: 11-25-2021 13:05-0400 Respiratory rate 18 /min Dr. Rochelle Hackett Work Phone: [facility] Work Phone: 11-25-2021 13:05-0400 SaO2% (BldA) [Mass fraction] 99 % Dr. Rochelle Hackett Work Phone: [facility] Work Phone: 10-25-2021 00:53-0500 Body temperature 98 [degF] Dr. Rochelle Hackett Work Phone: [facility] Work Phone: 10-25-2021 00:53-0500 Diastolic blood pressure 74 mm[Hg] Dr. Rochelle Hackett Work Phone: [facility] Work Phone: 10-25-2021 00:53-0500 Heart rate 62 /min Dr. Rochelle Hackett Work Phone: [facility] Work Phone: 10-25-2021 00:53-0500 Respiratory rate 16 /min Dr. Rochelle Hackett Work Phone: [facility] Work Phone: 10-25-2021 00:53-0500 SaO2% (BldA) [Mass fraction] 98 % Dr. Rochelle Hackett Work Phone: [facility] Work Phone: 10-25-2021 00:53-0500 Systolic blood pressure 142 mm[Hg] Dr. Rochelle Hackett Work Phone: [facility] Work Phone: 10-24-2021 20:50-0500 Body height 170.[address] Rochelle Hackett Work Phone: [facility] Work Phone: 10-24-2021 20:50-0500 Body mass index (BMI) [Ratio] 19.5 kg/m2 Dr. Rochelle Hackett Work Phone: [facility] Work Phone: 10-24-2021 20:50-0500 Body weight 56.[address] Rochelle Hackett Work Phone: [facility] Work Phone: 09-26-2021 11:51-0500 Body mass index (BMI) [Ratio] 18.6 kg/m2 Dr. Rochelle Hackett Work Phone: [facility] 09-26-2021 11:51-0500 Body weight 53.[address] Rochelle Hackett Work Phone: [facility] 09-26-2021 10:51-0500 Body mass index (BMI) [Ratio] 18.6 kg/m2 Dr. Rochelle Hackett Work Phone: [facility] Work Phone: 09-26-2021 10:51-0500 Body weight 53.[address] Rochelle Hackett Work Phone: [facility] Work Phone: 09-26-2021 10:01-0500 Body mass index (BMI) [Ratio] 18.5 kg/m2 Dr. Rochelle Hackett Work Phone: [facility] Work Phone: 09-26-2021 10:01-0500 Body temperature 97.2 [degF] Dr. Rochelel Hackett Work Phone: [facility] Work Phone: 09-26-2021 10:01-0500 Body weight 53.[address] Rochelle Hackett Work Phone: [facility] Work Phone: 09-26-2021 10:01-0500 Diastolic blood pressure 78 mm[Hg] Dr. Rochelle Hackett Work Phone: [facility] Work Phone: 09-26-2021 10:01-0500 Heart rate 67 /min Dr. Rochelle Hackett Work Phone: [facility] Work Phone: 09-26-2021 10:01-0500 Respiratory rate 16 /min Dr. Rochelle Hackett Work Phone: [facility] Work Phone: 09-26-2021 10:01-0500 SaO2% (BldA) [Mass fraction] 97 % Dr. Rochelle Hackett Work Phone: [facility] Work Phone: 09-26-2021 10:01-0500 Systolic blood pressure 134 mm[Hg] Dr. Rochelle Hackett Work Phone: [facility] Work Phone: 12-10-2020 13:44-0400 Body temperature 97.7 [degF] Dr. Rochelle Hackett Work Phone: [facility] 12-10-2020 13:44-0400 Diastolic blood pressure 78 mm[Hg] Dr. Rochelle Hackett Work Phone: [facility] 12-10-2020 13:44-0400 Heart rate 60 /min Dr. Rochelle Hackett Work Phone: [facility] 12-10-2020 13:44-0400 Respiratory rate 16 /min Dr. Rochelle Hackett Work Phone: [facility] 12-10-2020 13:44-0400 SaO2% (BldA) [Mass fraction] 100 % Dr. Rochelle Hackett Work Phone: [facility] 12-10-2020 13:44-0400 Systolic blood pressure 153 mm[Hg] Dr. Rochelle Hackett Work Phone: [facility] 08-03-2017 12:08-0500 BMI (Body Mass Index) 18.27 kg/m2 Handy Russell [facility] Work Phone: 08-03-2017 12:08-0500 BP Diastolic 80 mm[Hg] Handy Roof [employer] [facility] Work Phone: 08-03-2017 12:08-0500 BP Systolic 128 mm[Hg] Handy Roof [employer] [facility] Work Phone: 08-03-2017 12:08-0500 Height 171.45 cm Handy Roof [employer] [facility] Work Phone: 08-03-2017 12:08-0500 Pulse (Heart Rate) 66 /min Handy Roof [employer] [facility] Work Phone: 08-03-2017 12:08-0500 Weight 53.71 kg Handy Roof [employer] [facility] Work Phone: 06-03-2017 14:42-0400 Body Temperature 97.7 [degF] Handy Roof [employer] [facility] Work Phone: 06-03-2017 14:42-0400 Height 171.45 cm Handy Roof [employer] [facility] Work Phone: 06-03-2017 14:42-0400 Respiratory Rate 20 /min Handy Russell [employer] [facility] Work Phone: 06-03-2017 14:42-0400 Weight 52.07 kg Handy Roof [employer] [facility] Work Phone: 11-05-2016 14:41-0500 BSA (Body Surface Area) 1.63 m2 Handy Roof [employer] [facility] Work Phone: 10-16-2015 14:27-0500 BP Diastolic 44 mm[Hg] Handy Roof [employer] [facility] Work Phone: 10-16-2015 14:27-0500 BP Systolic 88 mm[Hg] Handy Roof [employer] [facility] Work Phone: 10-16-2015 14:27-0500 Pulse (Heart Rate) 64 /min Handy Roof [employer] [facility] Work Phone: Encounters Encounter Date Encounter Type Care Provider Facility Start: 07-14-2025 End: 07-14-2025 ambulatory [facility] Start: 07-03-2025 End: 07-03-2025 ambulatory Pamela Prince [facility] Start: 06-26-2025 End: 06-26-2025 ambulatory Pamella Mayoliveamadeo [facility] Start: 06-26-2025 End: 06-26-2025 ambulatory Pamela Prince [facility] Start: 06-16-2025 End: 06-16-2025 ambulatory Pamela Wymary [facility] Start: 06-16-2025 End: 06-16-2025 ambulatory Pamela Rayacherimichael [facility] Start: 06-12-2025 End: 06-12-2025 ambulatory Pamella España [facility] Start: 06-08-2025 End: 06-08-2025 ambulatory Larissa Jacobstiago [facility] Start: 06-05-2025 End: 06-05-2025 Emergency department patient visit Denzel Paolo Facility:[facility] Start: 05-31-2025 End: 06-01-2025 ambulatory [facility] Facility:[facility] Start: 05-30-2025 End: 05-30-2025 ambulatory [facility] Start: 05-22-2025 End: 05-22-2025 ambulatory Erick Blanca Facility:[facility] Start: 05-18-2025 End: 05-18-2025 ambulatory [facility] Facility:[facility] Start: 05-18-2025 End: 05-18-2025 Patient encounter procedure Al Nichole APRN.CNP Work Phone: [facility] [place] Comment on above: Medicare annual well ness visit, subsequent (Primary Dx) Start: 05-16-2025 End: 05-16-2025 ambulatory Pamella Taco Facility:[facility] Start: 05-08-2025 End: 05-08-2025 Patient encounter procedure Maggi Aldana PA-C Work Phone: Orthopaedics Comment on above: Primary osteoarthrit is of right knee (Primary Dx) Start: 05-08-2025 End: 05-08-2025 ambulatory [facility] Facility:[facility] Start: 05-01-2025 End: 05-01-2025 Patient encounter procedure Maggi Cartovitz PA-C Work Phone: Orthopaedics Comment on above: Primary osteoarthrit is of right knee (Primary Dx) Start: 05-01-2025 End: 05-01-2025 ambulatory MAGGI PHILLIPTOVITZ Facility:[facility] Start: 04-24-2025 End: 04-24-2025 Patient encounter procedure Maggi Vetovitz PA-C Work Phone: Orthopaedics Comment on above: Primary osteoarthrit is of right knee (Primary Dx); Primary osteoarthritis of right shoulder Start: 04-24-2025 End: 04-24-2025 ambulatory MAGGI KATYA Facility:[facility] Start: 04-24-2025 End: 04-24-2025 Subsequent hospital visit by physician Xr Count Includes [facility] Mally Bonner Work Phone: Radiology Comment on above: Right shoulder pain, unspecified chronicity [M25.511] Primary osteoarthrit is of right knee [M17.11] Start: 04-18-2025 End: 04-18-2025 ambulatory Pamella Taco Facility[facility] Start: 04-17-2025 End: 04-17-2025 Nursing evaluation of patient and report Nurse [employer] Exchange Work Phone: Urology Comment on above: Urine retention (Lucia teri Dx) Start: 04-17-2025 End: 04-17-2025 ambulatory ROCHELLE HACKETT [facility] Start: 04-17-2025 End: 04-17-2025 Office outpatient new 30 minutes Melissa Mayorga ANTENNA RIGGER.ALMOND BLANCHER Work Phone: Urology Comment on above: Urinary retention (P rimary Dx); Encounter for Cotto catheter removal Start: 04-17-2025 End: 04-17-2025 ambulatory MELISSA MAYORGA [facility] Start: 04-12-2025 End: 04-12-2025 Telephone encounter Rochelle Hackett MD Work Phone: [facility] [place] Comment on above: Patient Update; Jennifer ent Question Start: 04-11-2025 End: 04-12-2025 Emergency department patient visit Girish Jay Facility:[facility] Start: 04-05-2025 End: 04-05-2025 Orders Only Maggi Aldana PA-C Work Phone: Orthopaedics Comment on above: Right shoulder pain, unspecified chronicity (Primary Dx) Start: 04-03-2025 End: 04-03-2025 Office outpatient visit 15 minutes Saray Bowser APRN.CNP Work Phone: [facility] [place] Comment on above: Tick bite of pelvic region, initial encounter (Primary Dx) Start: 04-03-2025 End: 04-03-2025 ambulatory SARAY BOWSER Facility:[facility] Start: 04-03-2025 End: 04-03-2025 Telephone encounter Rochelle Hackett MD Work Phone: [facility] [place] Comment on above: Patient Update Start: 03-13-2025 End: 03-13-2025 ambulatory Erick Blanca [facility] Start: 03-07-2025 End: 05-07-2025 Follow-up encounter Rochelle Hackett MD Work Phone: [facility] [place] Start: 03-06-2025 End: 03-06-2025 ambulatory ROCHELLE HACKETT Facility:[facility] Start: 03-06-2025 End: 03-06-2025 Office outpatient visit 25 minutes Rochelle Hackett MD Work Phone: [facility] [place] Comment on above: Hospital discharge f ollow-up (Primary Dx); Hyponatremia; Constipation, unspecified constipation type; Acute cough; 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); Paroxysmal atrial fibrillation (HCC) Start: 03-06-2025 End: 03-06-2025 ambulatory ROCHELLE HACKETT Facility:[facility] Start: 02-25-2025 End: 02-25-2025 ambulatory Brian Cooley [facility] Start: 02-24-2025 ambulatory Cris Sarah [facility] Start: 02-24-2025 End: 02-27-2025 Evaluation and management of inpatient Cris Sarah Facility:[facility] Start: 02-24-2025 ambulatory Cris Sarah [facility] Start: 02-22-2025 End: 02-22-2025 Refill Rochelle Hackett MD Work Phone: [facility] [place] Comment on above: Refill Request Start: 02-21-2025 End: 02-21-2025 ambulatory Rochelle Gan Facility:[facility] Start: 02-16-2025 End: 04-18-2025 Follow-up encounter Rochelle Hackett MD Work Phone: [facility] [place] Start: 02-14-2025 End: 02-14-2025 ambulatory [facility] Facility:[facility] Start: 02-10-2025 End: 02-10-2025 Office outpatient visit 25 minutes Rochelle Hackett MD Work Phone: [facility] [place] Comment on above: Osteoporosis, unspec ified osteoporosis type, unspecified pathological fracture presence (Primary Dx); Insomnia, unspecified type; Dizziness; 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); Protein-calorie malnutrition, unspecified severity (HCC); Anxiety and depression; Gastroesophageal reflux disease, unspecified whether esophagitis present; Vitamin D deficiency; Frail elderly; Mixed hyperlipidemia; Essential (primary) hypertension; Adrenal insufficiency (HCC) Start: 02-10-2025 End: 02-10-2025 ambulatory [facility] Facility:[facility] Start: 02-07-2025 End: 02-07-2025 ambulatory Toribio Marcos Facility:[facility] Start: 01-12-2025 ambulatory [facility] Facility: [facility] Start: 12-28-2024 End: 12-28-2024 ambulatory [facility] Facility:[facility] Start: 12-27-2024 End: 12-27-2024 ambulatory Anayeli Pettit RN Work Phone: [employer] Comment on above: Bi-Weekly Outreach ( Recurring) for Chronic Disease Management Start: 12-26-2024 End: 12-26-2024 ambulatory Erick Blanca Facility:[facility] Start: 12-20-[address] Rochelle hughes MD -Physical Therapy Work Phone: Start: 12-20-2024 End: 12-20-[address] Rochelle Hackett MD Work Phone: [facility] Work Phone: Start: 12-20-2024 End: 12-20-[address] Eagle Enciso MD -Laboratory Work Phone: Start: 12-20-2024 End: 12-20-2024 ambulatory Eagle Enciso Facility:[facility] Start: 12-13-2024 End: 12-13-2024 ambulatory Anayeli Pettit RN Work Phone: [employer] Comment on above: Bi-Weekly Outreach ( Recurring) for Chronic Disease Management Start: 12-09-2024 End: 12-09-2024 ambulatory Nancy Rangel MA [facility] Start: 12-09-2024 End: 12-09-2024 Patient encounter procedure Nancy Rangel MA [facility] Comment on above: Population Health Na vigation Outreach (Aco high risk attempt # 1) Start: 11-29-2024 End: 11-29-2024 ambulatory Anayeli Pettit RN Work Phone: [employer] Comment on above: Bi-Weekly Outreach ( Recurring) for Chronic Disease Management Start: 11-16-2024 End: 11-16-2024 ambulatory Anayeli Pettit RN Work Phone: [employer] Comment on above: Bi-Weekly Outreach ( Recurring) for Chronic Disease Management Start: 11-10-2024 End: 11-10-2024 ambulatory No Pcp (Hist) [facility] Start: 11-10-2024 End: 11-10-2024 Patient encounter procedure No Pcp (Hist) [facility] Start: 11-08-2024 End: 11-08-2024 Telephone encounter Rochelle Hackett MD Work Phone: [facility] [place] Comment on above: Orders ([facility]) Start: 11-08-2024 End: 11-08-2024 ambulatory ROCHELLE HACKETT Facility:[facility] Start: 11-08-2024 End: 11-08-2024 Office outpatient visit 25 minutes Rochelel Hackett MD Work Phone: Internal Medicine [place] Comment on above: Ambulatory dysfuncti on (Primary Dx); Dizziness; Frequent falls; Osteoporosis, unspecified osteoporosis type, unspecified pathological fracture presence; Insomnia, unspecified type Start: 11-07-2024 End: 11-07-2024 Follow-up encounter Al Nichole APRN.CNP Work Phone: Family [facility] [place] Comment on above: Compression fracture of T12 vertebra with routine healing, subsequent encounter (Primary Dx); Compression fracture of body of thoracic vertebra (HCC) Start: 11-07-2024 End: 11-07-2024 Telephone encounter Rochelle Hackett MD Work Phone: Internal Medicine [place] Comment on above: Pain Management Refe rral Start: 11-03-2024 End: 01-03-2025 Follow-up encounter Al Nichole APRN.CNP Work Phone: Family Medicine [place] Start: 11-03-2024 End: 11-04-2024 Telephone encounter Rochelle Hackett MD Work Phone: Internal Medicine [place] Comment on above: Patient Question Start: 11-02-2024 End: 11-02-2024 Subsequent hospital visit by physician Xr Count Includes [facility] [place] Work Phone: Radiology Comment on above: Acute midline back p ain, unspecified back location [M54.9] Start: 11-02-2024 End: 11-02-2024 ambulatory AL NICHOLE Facility:[facility] Start: 11-02-2024 End: 11-02-2024 Patient encounter procedure Al Nichole APRN.ALMOND BLANCHER Work Phone: Internal Medicine [place] Comment on above: Fall, subsequent enc ounter (Primary Dx); Acute midline back pain, unspecified back location; Dysuria; Hyponatremia; Hypokalemia Start: 11-01-2024 End: 11-01-2024 ambulatory Anayeli Pettit RN Work Phone: [employer] Comment on above: Bi-Weekly Outreach ( Recurring) for Chronic Disease Management Start: 10-30-2024 End: 10-30-2024 Emergency department patient visit Dr. Tejinder Mora MD -Emergency Department Work Phone: Start: 10-17-2024 End: 10-17-2024 ambulatory Anayeli Pettit RN Work Phone: [employer] Comment on above: Initial enrollment o codie for Chronic Disease Management Start: 10-14-2024 End: 10-14-[address] Maya Sal MD -Sleep Lab Work Phone: Start: 10-14-2024 End: 10-14-2024 ambulatory Maya Sal Facility:[facility] Start: 10-11-2024 End: 10-11-2024 ambulatory Dipika Mohr MA [facility] [place] Start: 10-11-2024 End: 10-11-2024 Patient encounter procedure Dipika Mohr MA [facility] Comment on above: Population Health Na vigation Outreach ([place] ) Start: 09-29-2024 ambulatory [facility] Facility :[facility] Start: 09-29-2024 End: 09-29-2024 Telemedicine consultation with patient Maya Sal MD Work Phone: Sleep Medicine [facility] Comment on above: Hypersomnia (Primary Dx) Start: 09-20-[address] Shirley Nguyễn MD -[facility] [facility] Start: 09-09-2024 End: 09-09-[address] Brian Cooley MD -[facility] Work Phone: Start: 09-09-2024 End: 09-09-2024 ambulatory Brian Cooley Facility:[facility] Start: 07-21-2024 End: 07-28-2024 Telephone encounter Rochelle Hackett MD Work Phone: Internal Medicine [place] Start: 07-13-2024 End: 07-13-2024 ambulatory ROCHELLE ROXANN Facility[facility] Start: 06-28-2024 End: 06-28-2024 ambulatory ROCHELLE HACKETT Facility:[facility] Start: 06-28-2024 End: 06-28-2024 Patient encounter procedure Sol Harvey Work Phone: Podiatry Comment on above: Open wound of toe, i nitial encounter (Primary Dx) Start: 06-10-2024 End: 07-14-2024 Chart abstracting [facility] Work Phone: Neurology Comment on above: Psg Check In (Adult) Start: 06-02-2024 End: 06-02-2024 ambulatory ROCHELLE HACKETT Facility:[facility] Start: 06-02-2024 End: 06-02-2024 Patient encounter procedure Sol Harvey Work Phone: Podiatry Comment on above: Ingrowing toenail (P rimary Dx) Start: 05-20-2024 End: 05-20-2024 Telephone encounter Rohcelle Hackett MD Work Phone: Internal Medicine [place] Comment on above: Results Start: 05-18-2024 End: 05-18-2024 Patient encounter procedure Rochelle Hackett MD Work Phone: Internal Medicine [place] Comment on above: Frail elderly (Prima ry Dx); Exhaustion; Sleep apnea, unspecified type; Vitamin D deficiency; Iron deficiency; Other fatigue Start: 05-03-2024 End: 05-06-2024 ambulatory Rochelle Hackett MD Work Phone: Internal Medicine [facility] [place] Start: 04-22-2024 End: 04-22-2024 Patient encounter procedure Sol Harvey Work Phone: Podiatry Comment on above: Onychomycosis (Prima ry Dx); Ingrowing toenail Start: 04-12-2024 Telephone encounter Al Nichole APRN.CNP Work Phone: Internal Medicine [place] Comment on above: Orders Start: 04-12-2024 End: 04-12-2024 Office outpatient visit [...] pathological fracture presence; Mild cognitive disorder Start: 01-23-2024 End: 01-23-2024 Emergency department patient visit Dr. Rochelle [facility]ett [facility]: Start: 01-18-2024 End: 01-18-[address] Rochelle Hackett Work Phone: [facility] Work Phone: Start: 12-30-2023 End: 12-30-[address] Rochelle Hackett Work Phone: [facility] Work Phone: Start: 12-30-2023 End: 12-30-[address] Rochelle Hackett Work Phone: [facility]-Physical Therapy Work Phone: Start: 12-29-2023 End: 12-29-[address] Rochelle Hackett Work Phone: [facility] Neu[facility] Work Phone: Start: 12-25-[address] Yuval Hackett Work Phone: [facility]-Physical Therapy Work Phone: Start: 12-18-2023 End: 12-18-[address] Rochelle Hackett Work Phone: [facility] Work Phone: Start: 12-18-2023 End: 12-18-[address] Rochelle Hackett Work Phone: [facility]-Laboratory Work Phone: Start: 12-15-2023 End: 12-15-2023 Office outpatient visit 25 minutes Sara Rangel APRN.[employer]IVER Work Phone: Internal Medicine [place] Comment on above: Urinary incontinence , unspecified type (Primary Dx); Urinary tract infection without hematuria, site unspecified Start: 12-08-2023 End: 12-08-2023 Emergency department patient visit Dr. Rochelle Hackett Work Phone: [facility]-Emergency Department Work Phone: Start: 12-07-[address] Yuval Hackett [facility]: Start: 11-26-2023 End: 11-26-[address] Rochelle Hackett Work Phone: [facility] Neu[facility] Work Phone: Start: 11-22-2023 Non-patient / Non-visit Dr. Bulmaro Hackett Work Phone: [facility] Work Phone: Start: 11-21-2023 End: 11-22-2023 Evaluation and management of inpatient Dr. Rochelle Hackett [facility] Work Phone: Start: 11-21-2023 End: 11-22-[address] Rochelle Hackett Work Phone: [facility] Work Phone: Start: 11-17-2023 End: 11-17-2023 Subsequent hospital visit by physician [facility] (I-Stat) Work Phone: Cat Scan Comment on above: TIA (transient ische aura attack) [G45.9] Start: 11-16-[address] Yuval Hackett [facility]: Start: 11-02-2023 End: 11-02-2023 Patient encounter procedure Irish Warren APRN.CNP Work Phone: Internal Medicine [place] Comment on above: TIA (transient ische aura attack) (Primary Dx); Aphasia; Ocular migraine; Yeast dermatitis Start: 11-02-2023 Telephone encounter Rochelle staton MD Work Phone: Internal Medicine [place] Comment on above: infected belly butto n; Problems with speaking and thought process Start: 10-30-2023 End: 10-30-2023 Patient encounter procedure Carlos Sheth MD Work Phone: General Surgery Comment on above: Mastodynia (Primary Dx); Costochondritis Start: 10-26-2023 End: 10-26-[address] Rochelle Hackett Work Phone: [facility] Neu[facility] Work Phone: Start: 10-23-2023 Telephone encounter Rochelle staton MD Work Phone: Internal Medicine [place] Comment on above: Release Of Medical R ecords Start: 10-20-2023 Telephone encounter Rochelle staton MD Work Phone: Internal Medicine [place] Comment on above: Patient Request Start: 10-08-2023 End: 10-08-[address] Rochelle Hackett Work Phone: [facility] Work Phone: Start: 10-07-[address] Yuval Hackett Work Phone: [facility]-Physical Therapy Work Phone: Start: 10-05-2023 End: 10-05-[address] Rochelle Hackett Work Phone: [facility] Work Phone: Start: 10-05-2023 End: 10-05-[address] Rochelle Hackett Work Phone: [facility]-Outpatient Breast Imaging Work Phone: Start: 10-01-2023 End: 10-01-[address] Rochelle Hackett Work Phone: [facility] Work Phone: Start: 10-01-[address] Yuval Hackett Work Phone: [facility] Oncology Start: 09-23-2023 End: 09-23-[address] Rochelle Hackett Work Phone: [facility] Work Phone: Start: 09-23-2023 End: 09-23-[address] Rochelle Hackett Work Phone: [facility]-Laboratory Work Phone: Start: 09-22-2023 End: 09-22-[address] Rochelle Hackett Work Phone: [facility] Work Phone: Start: 08-29-2023 End: 08-29-2023 Emergency department patient visit Dr. Rochelle Hackett Work Phone: [facility]-Emergency Department Work Phone: Start: 08-17-2023 End: 08-17-2023 Patient encounter procedure Maggi Aldana PA-C Work Phone: Orthopaedics Comment on above: Chronic pain of righ t knee (Primary Dx); Primary osteoarthritis of right knee Start: 08-12-2023 Non-patient / Non-visit Dr. Bulmaro Hackett Work Phone: [facility] Work Phone: Start: 08-12-2023 Non-patient / Non-visit Dr. Bulmaro Hackett Work Phone: [facility] Start: 08-11-2023 Non-patient / Non-visit Dr. Bulmaro Hackett Work Phone: [facility] Start: 08-11-2023 End: 08-11-[address] Rochelle Hackett Work Phone: [facility] Work Phone: Start: 08-11-2023 End: 08-11-[address] Rochelle Hackett Work Phone: [facility]-Cardiovascula r Services Work Phone: Start: 08-10-2023 End: 08-10-2023 Patient encounter procedure Jatinder Vick MD Work Phone: Orthopaedics Comment on above: Primary osteoarthrit is of right knee (Primary Dx); Chronic pain of right knee Start: 07-29-2023 Orders Only Jatinder Vick MD Work Phone: Orthopaedics Comment on above: Right knee pain, uns pecified chronicity (Primary Dx) Start: 07-23-2023 ambulatory Rochelle Ramírez Work Phone: Internal Medicine [place] Comment on above: Epistaxis Start: 07-23-2023 End: 07-23-2023 Emergency department patient visit Dr. Rochelle Hackett Work Phone: [facility]-Emergency Department Work Phone: Start: 07-15-2023 End: 07-15-[address] Rochelle Hackett Work Phone: [facility] Work Phone: Start: 07-15-2023 End: 07-15-[address] 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 Rochelle Hackett Work Phone: [facility] Work Phone: Start: 05-21-2023 End: 05-21-[address] Rochelle Hackett Work Phone: [facility]-Outpatient Breast Imaging Work Phone: Start: 05-20-2023 Non-patient / Non-visit Dr. Bulmaro Hackett Work Phone: [facility] Start: 05-20-2023 End: 05-20-[address] Rochelle Hackett Work Phone: [facility]-Pulmonary Services/Neurology Work Phone: Start: 05-08-2023 Telephone encounter Ilya Begum Adult Psychology Comment on above: Consult (Patient Out reach [facility]) Orders Start: 05-08-2023 End: 05-08-2023 Patient encounter procedure Al Nichole APRN.ALMOND BLANCHER Work Phone: Internal Medicine [place] Comment on above: Anxiety and depressi on (Primary Dx); Nausea; Dizziness; Diarrhea, unspecified type; Paroxysmal atrial fibrillation (HCC); Hyponatremia; Chronic fatigue disorder; Gastroesophageal reflux disease, unspecified whether esophagitis present Start: 05-05-2023 End: 05-05-[address] Rochelle Hackett Work Phone: [facility]-Physical Therapy Work Phone: Start: 04-25-2023 End: 04-25-2023 Emergency department patient visit Dr. Rochelle Hackett Work Phone: [facility]-Emergency Department Work Phone: Start: 04-23-2023 End: 04-23-[address] Rochelle Hackett Work Phone: [facility] [facility] Work Phone: Start: 04-21-2023 ambulatory Rochelle Ramírez Work Phone: Internal Medicine [place] Start: 04-20-2023 Telephone encounter Sandra rosa APRN.ALMOND BLANCHER Work Phone: [facility] Comment on above: Results Start: 04-17-2023 Telephone encounter Sandra rosa APRN.ALMOND BLANCHER Work Phone: Family Medicine [place] Comment on above: Results Start: 04-16-2023 End: 04-16-2023 Subsequent hospital visit by physician Xr Count Includes [facility] [place] Work Phone: Radiology Comment on above: Diarrhea, unspecifie d type [R19.7] Start: 04-16-2023 End: 04-16-2023 Patient encounter procedure Sandra [place] APRN.ALMOND BLANCHER Work Phone: Family Medicine [place] Comment on above: Diarrhea, unspecifie d type (Primary Dx) APPOINTMENT CANCELLE D (Primary Dx) Start: 04-15-2023 Telephone encounter Al Nichole APRN.ALMOND BLANCHER Work Phone: Internal Medicine [place] Comment on above: mushy stools Start: 04-13-[address] Yuval Hackett Work Phone: [facility]-Physical Therapy Work Phone: Start: 04-11-2023 End: 04-11-[address] Rochelle Hackett Work Phone: [facility] Work Phone: Start: 04-11-2023 End: 04-11-[address] Rochelle Hackett Work Phone: [facility]-Laboratory Work Phone: Start: 04-09-[address] Yuval Hackett Work Phone: [facility] [facility] Start: 04-09-2023 End: 04-09-[address] Rochelle Hackett Work Phone: [facility] Work Phone: Start: 04-08-2023 End: 04-08-2023 Emergency department patient visit Dr. Rochelle Hackett Work Phone: [facility]-Emergency Department Work Phone: Start: 04-08-2023 ambulatory Rochelle Ramírez Work Phone: Internal Medicine [place] Comment on above: Dizziness Start: 04-08-2023 End: 04-08-2023 Patient encounter procedure Sydney Romero JEAN-CLAUDEDennisNIKO Work Phone: [facility] Comment on above: Black-out (not amnes ia) (Primary Dx) Start: 04-07-2023 End: 04-07-[address] Rochelle Hackett Work Phone: [facility] Work Phone: Start: 04-07-[address] Yuval Hackett [facility]: Start: 01-19-2023 End: 01-19-[address] Rochelle Hackett Work Phone: [facility] Work Phone: Start: 01-14-2023 End: 01-14-2023 Patient encounter procedure Sol Harvey Work Phone: Podiatry Comment on above: Onychomycosis (Prima ry Dx); Diminished pulses in lower extremity; Protein-calorie malnutrition, unspecified severity (HCC) Start: 11-21-2022 End: 11-21-[address] Rochelle Hackett Work Phone: [facility] Work Phone: Start: 11-21-2022 End: 11-21-[address] Rochelle Hackett Work Phone: [facility]-Physical Therapy Start: 11-17-[address] Yuval Hackett [facility] Start: 11-14-2022 End: 11-14-2022 Patient encounter procedure Rochelle Hackett MD Work Phone: Internal Medicine [place] Comment on above: Urinary incontinence , unspecified type (Primary Dx); Paroxysmal atrial fibrillation (HCC); SIADH (syndrome of inappropriate ADH production) ([facility]); Chronic fatigue disorder; Dizziness and giddiness; Mild cognitive disorder; Major depressive disorder, recurrent, in partial remission (HCC) Start: 11-14-2022 End: 11-14-[address] Rochelle Hackett Work Phone: [facility] Work Phone: Start: 11-14-2022 End: 11-14-[address] Rochelle Hackett Work Phone: [facility]-Laboratory Start: 10-14-2022 End: 10-14-[address] Rochelle Hackett Work Phone: [facility] Start: 10-08-[address] Yuval Hackett Work Phone: [facility] On[facility] Start: 10-08-2022 End: 10-08-[address] Rochelle Hackett Work Phone: [facility] Start: 09-05-2022 End: 09-05-2022 Patient encounter procedure Ron Wong MD Work Phone: [facility] Comment on above: Acute COVID-19 (Prim merry Dx) Start: 09-05-2022 Refill Ron mercedes MD Work Phone: [facility] Comment on above: Med Change Request Start: 09-05-2022 Telephone encounter Rochelle staton MD Work Phone: Internal Medicine [place] Comment on above: Patient Update Start: 08-28-2022 Telephone encounter Al Nichole APRN.ALMOND BLANCHER Work Phone: Internal Medicine [place] Comment on above: Results Start: 08-20-2022 Telephone encounter Alice Jenkins APRN.ALMOND BLANCHER Work Phone: [facility] Comment on above: Results Start: 08-19-2022 End: 08-19-2022 Patient encounter procedure Lori Patel APRN.ALMOND BLANCHER Work Phone: [facility] Comment on above: Urinary frequency (P rimary Dx) Start: 08-17-2022 End: 08-17-2022 Emergency department patient visit Dr. Rochelle Hackett Work Phone: [facility]-Emergency Department Start: 08-15-[address] Yuval Hackett Work Phone: [facility]-Physical Therapy Start: 08-11-2022 End: 08-11-2022 Patient encounter procedure Maggi Aldana PA-C Work Phone: Orthopaedics Comment on above: Primary osteoarthrit is of right knee (Primary Dx) Start: 08-04-2022 End: 08-04-2022 Patient encounter procedure Maggi Vetovined PA-C Work Phone: Orthopaedics Comment on above: Primary osteoarthrit is of right knee (Primary Dx) Start: 07-28-2022 End: 07-28-2022 Patient encounter procedure Maggi Velalyvined PA-C Work Phone: Orthopaedics Comment on above: Primary osteoarthrit is of right knee (Primary Dx); Chronic pain of right knee Start: 07-11-2022 Telephone encounter Justine lindsay PA-C Work Phone: [facility] Comment on above: Results Patient Update; Insu sedrick Authorization Start: 07-11-2022 End: 07-11-2022 Patient encounter procedure Justine Irizarry PA-C Work Phone: [facility] Comment on above: Right leg swelling ( Primary Dx) Start: 07-07-2022 End: 07-07-2022 Office outpatient visit 15 minutes Sofía Baig PA-C Work Phone: [facility] Comment on above: Visit for suture rem oval (Primary Dx); Laceration of right index finger without damage to nail, foreign body presence unspecified, initial encounter Start: 07-02-2022 End: 07-02-[address] Rochelle Hackett Work Phone: [facility] Start: 06-20-2022 End: 06-20-[address] Rochelle Hackett Work Phone: [facility] Work Phone: Start: 06-20-2022 End: 06-20-[address] Rochelle Hackett Work Phone: [facility]-Physical Therapy Start: 06-09-2022 End: 06-09-2022 Patient encounter procedure Maggi Aldana PA-C Work Phone: Orthopaedics Comment on above: Primary osteoarthrit is of right knee (Primary Dx); Chronic pain of right knee Start: 06-07-2022 Non-patient / Non-visit Dr. Bulmaro Hackett Work Phone: [facility] Start: 06-06-2022 End: 06-06-[address] Rochelle Hackett Work Phone: [facility] Start: 05-30-[address] Yuval Hackett [facility] Start: 05-29-2022 End: 05-29-[address] Rochelle Hackett Work Phone: [facility] Work Phone: Start: 05-29-2022 End: 05-29-[address] Rochelle Hackett Work Phone: [facility] Start: 05-29-2022 End: 05-29-[address] Rochelle Hackett Work Phone: [facility] Start: 05-16-2022 End: 05-16-[address] Rochelle Hackett Work Phone: [facility] Work Phone: Start: 05-16-2022 End: 05-16-[address] Rochelle Hackett [facility] Start: 05-16-[address] Yuval Hackett Work Phone: [facility]-Physical Therapy Start: 05-16-2022 End: 05-16-2022 Patient encounter procedure Rochelle Hackett MD Work Phone: Internal Medicine [place] Comment on above: SIADH (syndrome of i nappropriate ADH production) (HCC) (Primary Dx); Paroxysmal atrial fibrillation (HCC); Dizziness and giddiness; Chronic fatigue disorder; Mild cognitive disorder Start: 05-14-2022 End: 05-14-[address] Rochelle Hackett Work Phone: [facility] Work Phone: Start: 05-14-2022 End: 05-14-[address] Rochelle Hackett Work Phone: [facility]-Outpatient Bone Densitometry Start: 04-29-2022 ambulatory Rochelle Ramírez Work Phone: [facility] [place] Start: 04-21-2022 End: 04-21-2022 Patient encounter procedure Jessy Pina PA-C Work Phone: Orthopaedics Comment on above: Primary osteoarthrit is of right knee (Primary Dx); Acquired genu valgum of right knee Start: 04-21-2022 End: 04-21-2022 Subsequent hospital visit by physician Radio General Blanka Bonner Work Phone: Radiology Comment on above: Pain [R52] Start: 04-17-2022 Orders Only Jessy ROLDANC Work Phone: [facility] [place] Comment on above: Pain (Primary Dx) Start: 04-09-2022 Non-patient / Non-visit Dr. Bulmaro Hackett Work Phone: [facility] Start: 04-09-2022 End: 04-09-[address] Rochelle Hackett Work Phone: [facility]-Cardiovascula r Services Start: 04-09-2022 End: 04-09-[address] Rochelle Hackett Work Phone: [facility] Start: 04-09-[address] Yuval Hackett Work Phone: [facility] Oncology Start: 03-18-2022 End: 03-18-[address] Rochelle Hackett Work Phone: [facility]Laboratory Start: 03-18-2022 End: 03-18-[address] Rochelle Hackett Work Phone: [facility] Start: 02-24-[address] Yuval Hackett [facility] Start: 02-07-2022 End: 02-07-2022 Patient encounter procedure Alice Jenkins APRN.ALMOND BLANCHER Work Phone: [facility] Comment on above: Exposure to COVID-19 virus (Primary Dx) Start: 02-03-2022 Telephone encounter Rochelle staton MD Work Phone: Internal Medicine [place] Comment on above: Covid19 Concern Start: 01-20-2022 Telephone encounter Al Nichole APRN.ALMOND BLANCHER Work Phone: [facility] [place] Comment on above: Results Start: 01-04-2022 Refill Al CollinsALMOND BLANCHER Work Phone: [facility] [place] Comment on above: Refill Request Start: 12-24-2021 Telephone encounter Rochelle staton MD Work Phone: [facility] [place] Comment on above: Results Start: 12-04-2021 End: 12-04-[address] Rochelle Hackett Work Phone: [facility] Start: 11-25-2021 End: 11-25-[address] Rochelle Hackett Work Phone: [facility] Start: 11-22-2021 Telephone encounter Rochelle staton MD Work Phone: [facility] [place] Comment on above: Patient Question Start: 11-16-2021 End: 11-16-[address] Rochelle Hackett Work Phone: [facility] Start: 11-14-[address] Rochelle Hackett Work Phone: [facility] Start: 10-24-2021 End: 10-25-2021 Emergency department patient visit Dr. Rochelle Hackett Work Phone: [facility]Emergency Department Start: 10-03-2021 End: 10-03-[address] Rochelle Hackett Work Phone: [facility]Outpatient Breast Imaging Start: 09-26-[address] Yuval Hackett Work Phone: [facility] Start: 09-26-2021 End: 09-26-[address] Rochelle Hackett Work Phone: [facility] Start: 03-26-2021 End: 03-26-2021 Subsequent hospital visit by physician Xr [facility] Work Phone: Radiology Comment on above: Acute pain of right knee [M25.561] Procedures Date Procedure Procedure Detail Performing Clinician Start: 05-08-2025 Arthrocentesis aspir &/inj major jt/bursa w/o us Maggi Vetovitz PA-C Work Phone: Start: 05-01-2025 Arthrocentesis aspir &/inj major jt/bursa w/o us Maggi Vetovitz PA-C Work Phone: Start: 04-24-2025 End: 04-24-2025 Arthrocentesis aspir&/inj major jt/bursa w/o us Maggi Vetovitz PA-C Work Phone: Start: 04-17-2025 BLADDER SCAN Melissa Jessica grimm ANTENNA RIGGER.ALMOND BLANCHER Work Phone: Start: 10-30-2024 CT of head without contrast [...] head/brain w/o co ntrast material Irish Warren ANTENNA RIGGER.ALMOND BLANCHER Work Phone: Start: 10-05-[address] Rochelle Hackett Work Phone: Start: 08-17-2023 Arthrocentesis aspir &/inj major jt/bursa w/o us Maggi Aldana PA-C Work Phone: Start: 08-11-2023 Radionuclide imaging of perfusion of myocardium under exercise stress Dr. Rochelle Hackett Work Phone: Start: 08-10-2023 Arthrocentesis aspir &/inj major jt/bursa w/o us Jatinder Vick MD Work Phone: Start: 07-09-2023 INFLUENZA VACCINE, P RSV FREE, AGE 65+ YR, HIGH DOSE, QUADRIVALENT (FLUZONE HIGH-DOSE) Al Nichole ANTENNA RIGGER.ALMOND BLANCHER Work Phone: Start: 05-21-2023 Screening mammograph y of right breast Dr. Rochelle Hackett Work Phone: Start: 04-16-2023 Radiologic exam abdo men 1 view Sandra Leary ANTENNA RIGGER.ALMOND BLANCHER Work Phone: Start: 04-08-2023 Plain chest X-ray [...] 4/more views Jessy FRANKLIN-C Work Phone: Start: 10-24-2021 CTA Chst, Abd, Pel W and/or WO Dr. Rochelle Hackett Work Phone: Start: 10-24-2021 Plain chest X-ray Dr. Eri Hackett Work Phone: Start: 10-03-[address] Rochelle Hackett Work Phone: Start: 10-03-[address] 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 Brian Cooley MD Start: 08-30-2015 End: 08-30-2015 [...] PA-C Work Phone: Start: 05-16-2015 End: 05-16-2015 [employer] Tanesha Britt PA-C Work Phone: Start: 05-16-2015 [...] Ecg routine ecg w/least 12 lds w/i&r Okarche S Yasir, MD Start: 07-20-2014 End: 07-20-2014 Follow Up Appt 6 months Ele Pierre Start: 07-20-2014 End: 07-25-2014 Magnesium [Mass/volume] in Serum or Plasma Brian Cooley MD Start: 01-12-2014 End: 06-28-2015 *BMP Brian Cooley MD Start: 01-12-2014 End: 01-12-2014 *Hepatic Function Panel Ele Pierre Start: 01-12-2014 End: 01-12-2014 [employer] 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 Brian Cooley MD Start: 01-12-2014 End: 01-12-2014 Ecg [...] PA-C Work Phone: Start: 09-28-2013 End: 09-28-2013 ARPAN Cooley MD Start: 09-28-2013 End: 07-25-2014 Ecg routine ecg w/least 12 lds w/i&r Brian Cooley MD Start: 09-28-2013 End: 07-25-2014 Echocardiography Brian Cooley MD Start: 09-28-2013 End: 09-28-2013 Follow Up Appt 2 months Ele Pierre Start: 08-08-2013 End: 08-09-2013 *BMP Brian Cooley MD Start: 08-08-2013 End: 08-09-2013 *CBC with Differential Brian Cooley MD Start: 08-08-2013 End: 07-25-2014 ARPAN Cooley MD Start: 08-08-2013 End: 08-08-2013 Ecg [...] PA-C Work Phone: Start: 11-17-2012 End: 11-17-2012 [employer] GRADER Brian Cooley MD Start: 11-17-2012 End: 11-17-2012 Follow Up Appt 4 months Ele Pierre Start: 10-12-2012 End: 10-14-2012 24 hour holter monitor Brian Cooley MD Start: 09-20-2012 End: 09-22-2012 Left Heart Cath Brian Cooley MD Start: 09-16-2012 End: 09-22-2012 *CRAIG Cooley MD Start: 09-16-2012 End: 09-22-2012 CBC [...] months Ele Pierre Start: 03-09-2012 End: 09-01-2012 *CRAIG Cooley MD Start: 03-09-2012 End: 03-09-2012 Follow Up Appt 6 months Ele Pierre Colonoscopy colonoscopy Dr. Rochelle hughes Work Phone: Comment on above: Due 05/2019 SARS-CoV-2 & FLU Ant igen (Rapid) Dr. Rochelle Hackett Work Phone: SARS-CoV-2 & FLU Ant igen (Rapid) Dr. Rochelle Hackett Work Phone: Plan of Treatment Date Care Activity Detail Author Start: 06-30-2032 Tetanus vaccination TETANUS [facility] Start: 06-30-2032 Urine microalbumin profile [facility] Start: 09-24-2028 Urine microalbumin profile DTAP,TDAP,TD (2 - Td or Tdap) [facility] Start: 03-06-2028 Diabetes Screening Diabetes Screening [facility] Start: 02-15-2028 Diabetes Screening Diabetes Screening [facility] Start: 11-02-2027 Diabetes Screening Diabetes Screening [facility] Start: 04-12-2027 Diabetes Screening Diabetes Screening [facility] Start: 09-01-2026 Diabetes Screening Diabetes Screening [facility] Start: 07-06-2026 Diabetes Screening Diabetes Screening [facility] Start: 05-31-2026 Screening for osteoporosis Bone Density Screening [facility] Start: 05-18-2026 Medicare Annual Wellness Visit Medicare Annual Wellness Visit [facility] Start: 04-20-2026 DIABETES SCREEN DIABETES SCREEN [facility] Start: 03-13-2026 Influenza vaccination Influenza Vaccine [facility] Comment on above: Postponed from 05/15/2025 (Declined at t his time) Start: 08-28-2025 End: 08-28-2025 Patient encounter procedure 08/28/2025 11:40 AM EST Office Visit [facility] [place] [address] [place] [address] Rochelle Hackett MD [address] [place] [id number] 3 Month F/U [facility] [place] Comment on above: 3 Month F/U Start: 08-25-2025 DIABETES SCREEN DIABETES SCREEN [facility] Start: 06-28-2025 DIABETES SCREEN DIABETES SCREEN [facility] Start: 09-01-2025 Influenza vaccination Influenza Vaccine (#1) [facility] Start: 05-11-2025 End: 05-11-2025 Patient encounter procedure 05/11/2025 1:00 PM EDT Office Visit [facility] [place] [address] [place] [address] Al Nichole APRN.ALMOND BLANCHER [address] [place] [address] Medicare wellness visit [facility] [place] Comment on above: Medicare wellness visit Start: 05-08-2025 End: 05-08-2025 Patient encounter procedure Orthopaedics Comment on above: gel injection R knee ( had one a couple years ago by Veadiel) gel injection R knee ( had one a couple years ago by Veadiel) 3rd of 3 gel injections Start: 05-01-2025 End: 05-01-2025 Patient encounter procedure 05/01/2025 11:30 AM EDT Office Visit Orthopaedics [address] [place] [address] Maggi Aldana PA-C [address] [place] [address] injection in R knee 2nd of 3 gel injection Orthopaedics Comment on above: injection in R knee 2nd of 3 gel injecti on Start: 04-24-2025 End: 04-24-2025 Patient encounter procedure 04/24/2025 11:30 AM EDT Office Visit Orthopaedics [address] [place] [address] Maggi Aldana PA-C [address] [place] [address] Right shoulder injection ( had one in 2022 with vetovitz) Orthopaedics Comment on above: Right shoulder injection ( had one in with vetovitz) Start: 03-06-2025 End: 06-05-2025 Basic metabolic 2000 panel - Serum or Plasma [facility] Work Phone: Comment on above: Expected: 03/06/2025, Expires: Start: 02-10-2025 End: 05-12-2025 25-hydroxyvitamin D3 [Mass/volume] in Serum or Plasma VITAMIN D 25 HYDROXY Lab Routine Vitamin D deficiency Expected: 02/10/2025, Expires: 05/12/2025 [facility] Comment on above: Expected: 02/10/2025, Expires: Start: 02-10-2025 End: 05-12-2025 Basic metabolic 2000 panel - Serum or Plasma BASIC METABOLIC PANEL Lab Routine SIADH (syndrome of inappropriate ADH production) ([facility]) Expected: 02/10/2025, Expires: 05/12/2025 [facility] Work Phone: Comment on above: Expected: 02/10/2025, Expires: Start: 02-10-2025 End: 05-12-2025 CBC W Auto Differential panel - Blood COMPLETE BLOOD COUNT AND DIFFERENTIAL Lab Routine SIADH (syndrome of inappropriate ADH production) ([facility]) Expected: 02/10/2025, Expires: 05/12/2025 [facility] Comment on above: Expected: 02/10/2025, Expires: Start: 02-10-2025 End: 05-12-2025 Comprehensive metabolic 2000 panel - Serum or Plasma COMPREHENSIVE METABOLIC PANEL Lab Routine SIADH (syndrome of inappropriate ADH production) ([facility]) Expected: 02/10/2025, Expires: 05/12/2025 [facility] Comment on above: Expected: 02/10/2025, Expires: Start: 02-10-2025 End: 05-12-2025 Lipid 1996 panel - Serum or Plasma LIPID PANEL, FASTING Lab Routine Mixed hyperlipidemia Expected: 02/10/2025, Expires: 05/12/2025 [facility] Comment on above: Expected: 02/10/2025, Expires: Start: 02-10-2025 End: 02-10-2025 Patient encounter procedure 02/10/2025 8:40 AM EDT Office Visit [facility] [place] [address] [facility] [place] [place] [address] Rochelle Hackett MD [address] [facility] [place] [address] 3 month follow up [facility] [place] Comment on above: 3 month follow up Start: 01-12-2025 End: 01-12-2025 Telemedicine consultation with patient 01/12/2025 1:00 PM EDT Telemedicine Sleep Medicine [facility] [address] [place] [address] [id number] [facility] Start: 11-21-2024 Covid-19 Vaccine () Covid-19 Vaccine () [facility] Start: 11-08-2024 End: 11-08-2024 Patient encounter procedure 11/08/2024 9:20 AM EST Office Visit [facility] [place] [address] [place] [address] Rochelle Hackett MD [address] [place] [address] Follow up [facility] [place] Comment on above: Follow up Start: 11-02-2024 End: 02-01-2025 Basic metabolic 2000 panel - Serum or Plasma [facility] Comment on above: Expected: 11/02/2024, Expires: Start: 10-30-2024 [facility] Start: 09-14-2024 Advance Directive Discussion Advance Directive Discussion [facility] Start: 07-13-2024 End: 07-13-2024 Patient encounter procedure 07/13/2024 9:05 PM EDT Office Visit Neurology [address] [place] [address] Sleep apnea, unspecified type [G47.30] Neurology Comment on above: Sleep apnea, unspecified type [G47.30] Start: 07-09-2024 RSV Vaccine (1 - 1-dose 60+ series) RSV Vaccine (1 - 1-dose 60+ series) [facility] Comment on above: Postponed from 2002 (Declined at t his time) Start: 07-05-2024 End: 07-05-2024 Patient encounter procedure 07/05/2024 9:00 PM EDT Office Visit Neurology [address] [place] [address] Sleep apnea, unspecified type [G47.30] Neurology Comment on above: Sleep apnea, unspecified type [G47.30] Start: 06-28-2024 End: 06-28-2024 Patient encounter procedure 06/28/2024 8:45 AM EDT Office Visit Podiatry [address] [place] [address] Sol Harvey [address] [place] [address] 2 week follow up Podiatry Comment on above: 2 week follow up Start: 06-02-2024 End: 06-02-2024 Patient encounter procedure 06/02/2024 3:15 PM EDT Office Visit Podiatry [address] [place] [address] Sol Harvey [address] [place] [address] bilateral ingrown procedure Podiatry Comment on above: bilateral ingrown procedure Start: 05-18-2024 End: 08-17-2024 25-hydroxyvitamin D3 [Mass/volume] in Serum or Plasma VITAMIN D 25 HYDROXY Lab Routine Vitamin D deficiency Expected: 05/18/2024, Expires: 08/17/2024 [facility] Comment on above: Expected: 05/18/2024, Expires: Start: 05-18-2024 End: 08-17-2024 Ferritin [Mass/volume] in Serum or Plasma FERRITIN Lab Routine Iron deficiency Expected: 05/18/2024, Expires: 08/17/2024 [facility] Comment on above: Expected: 05/18/2024, Expires: Start: 05-18-2024 End: 08-17-2024 Iron and Iron binding capacity panel - Serum or Plasma IRON AND TIBC Lab Routine Iron deficiency Expected: 05/18/2024, Expires: 08/17/2024 [facility] Comment on above: Expected: 05/18/2024, Expires: Start: 05-18-2024 End: 08-17-2024 Thyrotropin [Units/volume] in Serum or Plasma THYROID STIMULATING HORMONE Lab Routine Other fatigue Expected: 05/18/2024, Expires: 08/17/2024 [facility] Comment on above: Expected: 05/18/2024, Expires: Start: 05-18-2024 End: 05-18-2024 Patient encounter procedure [facility] [place] Comment on above: Geriatric consult Start: 05-15-2024 Influenza vaccination Influenza Vaccine (#1) [facility] Start: 05-14-2024 Screening for osteoporosis Bone Density Screening [facility] Start: 05-03-2024 End: 08-02-2024 Magnesium [Mass/volume] in Serum or Plasma MAGNESIUM Lab Routine Medication management Expected: 05/03/2024, Expires: 08/02/2024 [facility] Work Phone: Comment on above: Expected: 05/03/2024, Expires: Start: 04-22-2024 End: 04-22-2024 Patient encounter procedure 04/22/2024 1:40 PM EDT Office Visit Podiatry [address] [place], [place] [id number] Sol Harvey [address] [place] [address] ingrown toenail bilateral foot Podiatry Comment on above: ingrown toenail bilateral foot Start: 04-12-2024 End: 07-12-2024 Cobalamin (Vitamin B12) [Mass/volume] in Serum or Plasma [facility] Comment on above: Expected: 04/12/2024, Expires: Start: 04-12-2024 End: 07-12-2024 Comprehensive metabolic 2000 panel - Serum or Plasma [facility] Comment on above: Expected: 04/12/2024, Expires: Start: 04-12-2024 End: 07-12-2024 Ferritin [Mass/volume] in Serum or Plasma [facility] Comment on above: Expected: 04/12/2024, Expires: 4 Start: 04-12-2024 End: 07-12-2024 Iron and Iron binding capacity panel - Serum or Plasma [facility] Work Phone: Comment on above: Expected: 04/12/2024, Expires: 4 Start: 03-25-2024 DIABETES SCREEN DIABETES SCREEN [facility] Start: 01-23-2024 [facility] Start: 12-08-2023 [facility] Start: 12-08-2023 Plain chest X-ray Chest PA and Lateral [facility] Start: 12-08-2023 XR Chest PA and Lateral [facility] Start: 12-08-2023 [facility] Start: 12-08-2023 Bacteria identified in Urine by Culture [facility] Start: 11-22-2023 [facility] Start: 11-22-2023 Patient discharge [facility] Start: 11-22-2023 Vitamin B12 measurement [facility] Start: 11-22-2023 Following clinical pathway protocol [facility] Start: 11-22-2023 Assessment of risk of venous thromboembolism [facility] Start: 11-22-2023 Fall prevention [facility] Start: 11-22-2023 Incentive spirometry [facility] Start: 11-22-2023 Inhalation therapy procedure [facility] Start: 11-22-2023 Insertion of catheter into peripheral vein [facility] Start: 11-22-2023 Introduction of urinary catheter [facility] Start: 11-22-2023 Measuring intake and output [facility] Start: 11-22-2023 Oxygen therapy [facility] Start: 11-22-2023 Providing care according to standard [facility] Start: 11-22-2023 Provision of activity privileges [facility] Start: 11-22-2023 Referral to occupational therapist [facility] Start: 11-22-2023 Referral to service [facility] Start: 11-22-2023 [facility] Start: 11-21-2023 Verification routine [facility] Start: 11-21-2023 Admission procedure [facility] Start: 11-21-2023 Hospital admission, emergency, from emergency room, medical nature [facility] Start: 11-21-2023 [facility] Start: 11-21-2023 Respiratory Panel (PCR) Respiratory Panel (PCR) [facility] Start: 09-22-2023 Patient referral [facility] Work Phone: Start: 08-29-2023 [facility] Start: 07-23-2023 End: 10-22-2023 Basic metabolic 2000 panel - Serum or Plasma BASIC METABOLIC PNL Lab Routine Hyponatremia Expected: 07/23/2023 (Approximate), Expires: 10/22/2023 [facility] Work Phone: Comment on above: Expected: 07/23/2023 (Approximate), Expi res: 10/22/2023 Start: 07-23-2023 Control nasal hemorrhage anterior simple CONTROL OF NOSEBLEED [facility] Start: 07-23-2023 End: 07-23-2023 [facility] Start: 05-15-2023 Influenza vaccination INFLUENZA (#1) [facility] Start: 05-08-2023 End: 07-08-2023 Basic metabolic 2000 panel - Serum or Plasma BASIC METABOLIC PNL Lab Routine Hyponatremia Expected: 05/08/2023, Expires: 07/08/2023 [facility] Work Phone: Comment on above: Expected: 05/08/2023, Expires: 3 Start: 04-21-2023 End: 06-21-2023 Magnesium [Mass/volume] in Serum or Plasma MAGNESIUM BLD Lab Routine Medication management Expected: 04/21/2023, Expires: 06/21/2023 [facility] Work Phone: Comment on above: Expected: 04/21/2023, Expires: 3 Start: 04-16-2023 End: 06-16-2023 CBC W Auto Differential panel - Blood [facility] Work Phone: Comment on above: Expected: 04/16/2023, Expires: 3 Start: 04-16-2023 End: 06-16-2023 Comprehensive metabolic 2000 panel - Serum or Plasma [facility] Work Phone: Comment on above: Expected: 04/16/2023, Expires: Start: 04-08-2023 [facility] Start: 11-13-2022 COVID-19 VACCINE (4 - Booster for Pfizer series) COVID-19 VACCINE (4 - Booster for Pfizer series) [facility] Comment on above: Postponed from 09/09/2021 (Declined at t his time) Start: 11-13-2022 SHINGRIX VACCINE (2 of 2) SHINGRIX VACCINE (2 of 2) [facility] Comment on above: Postponed from 07/21/2020 (Declined at t his time) Start: 11-13-2022 SHINGRIX VACCINE (3 of 3) SHINGRIX VACCINE (3 of 3) [facility] Comment on above: Postponed from 07/21/2020 (Declined at t his time) Start: 09-25-2022 End: 11-25-2022 Thyroglobulin Ab [Units/volume] in Serum or Plasma THYROGLOBULIN AB Lab Routine Abnormal thyroid blood test Other fatigue Expected: 09/25/2022 (Approximate), Expires: 11/25/2022 [facility] Work Phone: Comment on above: Expected: 09/25/2022 (Approximate), Expi res: 11/25/2022 Start: 09-25-2022 End: 11-25-2022 THYROID PEROXIDASE ANTIBODY BLOOD THYROID PEROXIDASE ANTIBODY BLOOD Lab Routine Abnormal thyroid blood test Other fatigue Expected: 09/25/2022 (Approximate), Expires: 11/25/2022 [facility] Work Phone: Comment on above: Expected: 09/25/2022 (Approximate), Expi res: 11/25/2022 Start: 09-25-2022 End: 11-25-2022 Thyrotropin [Units/volume] in Serum or Plasma TSH BLD Lab Routine Abnormal thyroid blood test Other fatigue Expected: 09/25/2022 (Approximate), Expires: 11/25/2022 [facility] Work Phone: Comment on above: Expected: 09/25/2022 (Approximate), Expi res: 11/25/2022 Start: 09-25-2022 End: 11-25-2022 Thyroxine (T4) free [Mass/volume] in Serum or Plasma T4 FREE/FREE THYROX Lab Routine Abnormal thyroid blood test Other fatigue Expected: 09/25/2022 (Approximate), Expires: 11/25/2022 [facility] Work Phone: Comment on above: Expected: 09/25/2022 (Approximate), Expi res: 11/25/2022 Start: 09-25-2022 End: 11-25-2022 Triiodothyronine (T3) [Mass/volume] in Serum or Plasma T3 BLD Lab Routine Abnormal thyroid blood test Other fatigue Expected: 09/25/2022 (Approximate), Expires: 11/25/2022 [facility] Work Phone: Comment on above: Expected: 09/25/2022 (Approximate), Expi res: 11/25/2022 Start: 09-14-2022 ADVANCE DIRECTIVE DISCUSSION ADVANCE DIRECTIVE DISCUSSION [facility] Start: 09-13-2022 ADVANCE DIRECTIVE DISCUSSION ADVANCE DIRECTIVE DISCUSSION [facility] Comment on above: Postponed from 09/14/2021 (Declined at t his time) Start: 05-16-2022 End: 07-16-2022 Basic metabolic 2000 panel - Serum or Plasma BASIC METABOLIC PNL Lab Routine SIADH (syndrome of inappropriate ADH production) ([facility]) Expected: 05/16/2022, Expires: 07/16/2022 [facility] Work Phone: Comment on above: Expected: 05/16/2022, Expires: 2 Start: 05-16-2022 End: 07-16-2022 CBC W Auto Differential panel - Blood CBC + DIFF Lab Routine 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) Expected: 05/16/2022, Expires: 07/16/2022 [facility] Work Phone: Comment on above: Expected: 05/16/2022, Expires: 2 Start: 05-15-2022 Influenza vaccination INFLUENZA (#1) [facility] Start: 05-01-2022 COVID-19 VACCINE (5 - Booster for Pfizer series) COVID-19 VACCINE (5 - Booster for Pfizer series) [facility] Start: 04-29-2022 End: 06-29-2022 CBC panel - Blood by Automated count CBC Lab Routine Medication management Expected: 04/29/2022, Expires: 06/29/2022 [facility] Work Phone: Comment on above: Expected: 04/29/2022, Expires: 2 Start: 04-29-2022 End: 06-29-2022 Magnesium [Mass/volume] in Serum or Plasma MAGNESIUM BLD Lab Routine Medication management Expected: 04/29/2022, Expires: 06/29/2022 [facility] Work Phone: Comment on above: Expected: 04/29/2022, Expires: 2 Start: 04-29-2022 End: 06-29-2022 SCHEDULE LAB TESTING SCHEDULE LAB TESTING Lab Routine Expected: 04/29/2022, Expires: 06/29/2022 [facility] Work Phone: Comment on above: Expected: 04/29/2022, Expires: 2 Start: 03-18-2022 Vitamin D, 1,25-dihydroxy measurement [facility] Work Phone: Start: 02-07-2022 End: 02-17-2022 SARS-CoV-2 (COVID-19) RNA [Presence] in Respiratory specimen by MIGUEL ANGEL with probe detection ASYMPTOMATIC ELECTIVE COVID-19 Microbiology Routine Exposure to COVID-19 virus Expected: 02/07/2022, Expires: 02/17/2022 [facility] Work Phone: Comment on above: Expected: 02/07/2022, Expires: 2 Start: 10-15-2017 End: 08-03-2017 *Hepatic Function Panel *Hepatic Function Panel [facility] Work Phone: Start: 10-15-2017 End: 08-03-2017 Lipid panel [AGGREGATE] *Lipid Profile CC PCP [facility] Work Phone: Start: 09-01-2017 End: 09-01-2017 Appointment [facility] Work Phone: Start: 08-27-2017 [facility] Start: 08-14-2017 End: 08-03-2017 48 hour holter monitor 48 hour holter monitor [facility] Work Phone: Start: 08-14-2017 End: 08-03-2017 Echocardiography Echocardiogram (complete) [facility] Work Phone: Start: 08-03-2017 End: 08-04-2017 *BMP *BMP [facility] Work Phone: Start: 08-03-2017 End: 08-04-2017 Magnesium *Magnesium [facility] Work Phone: Start: 05-28-2017 End: 05-28-2017 Us exam, breast(s) US Breast(s) [facility] Work Phone: Start: 04-24-2017 End: 04-24-2017 Oncology Referral Oncology Referral [facility] Work Phone: Start: 02-26-2017 End: 02-26-2017 Follow Up Appt 6 months Follow Up Appt 6 months [facility] Work Phone: Start: 02-26-2017 End: 02-26-2017 MMM MMM [facility] Work Phone: Start: 12-19-2016 PNEUMOCOCCAL: 65+ (3 - PPSV23 or PCV20) PNEUMOCOCCAL: 65+ (3 - PPSV23 or PCV20) [facility] Start: 11-05-2016 End: 11-05-2016 [employer] [facility] Work Phone: Start: 11-05-2016 End: 11-05-2016 Follow Up Appt 6 months Follow Up Appt 6 months [facility] Work Phone: Start: 08-26-2016 End: 08-26-2016 [employer] [facility] Work Phone: Start: 08-26-2016 End: 08-26-2016 Follow Up Appt 6 months Follow Up Appt 6 months [facility] Work Phone: Start: 02-22-2016 End: 02-22-2016 [employer] [facility] Work Phone: Start: 02-22-2016 End: 02-22-2016 Follow Up Appt 6 months Follow Up Appt 6 months [facility] Work Phone: Start: 01-28-2016 End: 02-08-2016 *Hepatic Function Panel *Hepatic Function Panel [facility] Work Phone: Start: 01-28-2016 End: 02-08-2016 Lipid panel [AGGREGATE] *Lipid Profile CC PCP [facility] Work Phone: Start: 10-16-2015 End: 10-16-2015 [employer] [facility] Work Phone: Start: 10-16-2015 End: 10-16-2015 Follow Up Appt 3 months Follow Up Appt 3 months [facility] Work Phone: Start: 08-30-2015 End: 08-30-2015 24 hour holter monitor 24 hour holter monitor [facility] Work Phone: Start: 08-30-2015 End: 08-30-2015 [employer] [facility] Work Phone: Start: 08-30-2015 End: 08-30-2015 Follow Up Appt 6 weeks Follow Up Appt 6 weeks [facility] Work Phone: Start: 06-28-2015 End: 09-11-2015 *BMP *BMP [facility] Work Phone: Start: 06-28-2015 End: 06-28-2015 Follow Up Appt Other Follow Up Appt Other [facility] Work Phone: Start: 06-28-2015 End: 09-11-2015 Magnesium *Magnesium [facility] Work Phone: Start: 06-01-2015 Screening for malignant neoplasm of colon COLORECTAL CANCER SCREENING DISCUSSION [facility] Start: 05-16-2015 End: 05-16-2015 [employer] [facility] Work Phone: Start: 05-16-2015 End: 05-16-2015 Follow Up Appt 3 months Follow Up Appt 3 months [facility] Work Phone: Start: 02-12-2015 End: 02-12-2015 Follow Up Appt 2 months Follow Up Appt 2 months [facility] Work Phone: Start: 02-12-2015 End: 02-12-2015 Follow Up Appt Other Follow Up Appt Other [facility] Work Phone: Start: 02-12-2015 End: 02-12-2015 MMM MMM [facility] Work Phone: Start: 02-12-2015 End: 02-12-2015 Nuclear stress test -exercise Nuclear stress test -exercise [facility] Work Phone: Start: 02-12-2015 End: 02-12-2015 Xtrnl mobile cv telemetry w/i&report 30 days 30 Day Holter Monitor [facility] Work Phone: Start: 01-16-2015 End: 01-25-2015 *BMP *BMP [facility] Work Phone: Start: 01-16-2015 End: 01-16-2015 [employer] [facility] Work Phone: Start: 01-16-2015 End: 01-16-2015 Follow Up Appt 6 months Follow Up Appt 6 months [facility] Work Phone: Start: 01-16-2015 End: 01-25-2015 Lipid panel [AGGREGATE] *Lipid Profile CC PCP [facility] Work Phone: Start: 01-16-2015 End: 01-25-2015 Magnesium *Magnesium [facility] Work Phone: Start: 08-21-2014 Potassium [Moles/volume] in Serum or Plasma POTASSIUM [facility] Start: 07-20-2014 End: 07-25-2014 *BMP *BMP [facility] Work Phone: Start: 07-20-2014 End: 07-20-2014 [employer] [facility] Work Phone: Start: 07-20-2014 End: 07-20-2014 Ecg routine ecg w/least 12 lds w/i&r EKG (In office) [facility] Work Phone: Start: 07-20-2014 End: 07-20-2014 Follow Up Appt 6 months Follow Up Appt 6 months [facility] Work Phone: Start: 07-20-2014 End: 07-25-2014 Magnesium *Magnesium [facility] Work Phone: Start: 01-12-2014 End: 01-12-2014 *BMP *BMP [facility] Work Phone: Start: 01-12-2014 End: 01-12-2014 *Hepatic Function Panel *Hepatic Function Panel [facility] Work Phone: Start: 01-12-2014 End: 01-12-2014 [employer] [facility] Work Phone: Start: 01-12-2014 End: 01-12-2014 Ecg routine ecg w/least 12 lds w/i&r EKG (In office) [facility] Work Phone: Start: 01-12-2014 End: 01-12-2014 Follow Up Appt 6 months Follow Up Appt 6 months [facility] Work Phone: Start: 01-12-2014 End: 01-12-2014 Magnesium *Magnesium [facility] Work Phone: Start: 10-10-2013 End: 07-25-2014 *BMP *BMP [facility] Work Phone: Start: 10-10-2013 End: 07-25-2014 *CBC with Differential *CBC with Differential [facility] Work Phone: Start: 10-10-2013 End: 07-25-2014 Ecg routine ecg w/least 12 lds w/i&r EKG (In office) [facility] Work Phone: Start: 10-10-2013 End: 07-25-2014 Follow Up Appt Other Follow Up Appt Other [facility] Work Phone: Start: 10-10-2013 End: 07-25-2014 INR Coag RelTime (PPP) *PT/INR [facility] Work Phone: Start: 10-10-2013 End: 07-25-2014 Magnesium *Magnesium [facility] Work Phone: Start: 09-28-2013 End: 09-28-2013 [employer] [facility] Work Phone: Start: 09-28-2013 End: 07-25-2014 Ecg routine ecg w/least 12 lds w/i&r EKG (In office) [facility] Work Phone: Start: 09-28-2013 End: 09-28-2013 Echocardiography Echocardiogram (complete) [facility] Work Phone: Start: 09-28-2013 End: 09-28-2013 Follow Up Appt 2 months Follow Up Appt 2 months [facility] Work Phone: Start: 08-08-2013 End: 08-09-2013 *BMP *BMP [facility] Work Phone: Start: 08-08-2013 End: 08-09-2013 *CBC with Differential *CBC with Differential [facility] Work Phone: Start: 08-08-2013 End: 08-09-2013 BNP *Brain Natriuretic Peptide BNP [facility] Work Phone: Start: 08-08-2013 End: 07-25-2014 [employer] [facility] Work Phone: Start: 08-08-2013 End: 08-08-2013 Ecg routine ecg w/least 12 lds w/i&r EKG (In office) [facility] Work Phone: Start: 08-08-2013 End: 07-25-2014 Follow Up Appt 6 weeks Follow Up Appt 6 weeks [facility] Work Phone: Start: 08-08-2013 End: 08-09-2013 Magnesium *Magnesium [facility] Work Phone: Start: 07-21-2013 End: 07-22-2013 INR Coag RelTime (PPP) *PT/INR - Standing Order [facility] Work Phone: Start: 06-29-2013 End: 07-21-2013 24 hour holter monitor 24 hour holter monitor [facility] Work Phone: Start: 06-29-2013 End: 06-29-2013 Ecg routine ecg w/least 12 lds w/i&r EKG (In office) [facility] Work Phone: Start: 03-22-2013 End: 03-22-2013 Follow Up Appt 6 months Follow Up Appt 6 months [facility] Work Phone: Start: 03-22-2013 End: 03-22-2013 MMM MMM [facility] Work Phone: Start: 03-02-2013 End: 03-02-2013 Follow Up Appt Other Follow Up Appt Other [facility] Work Phone: Start: 03-02-2013 End: 03-02-2013 Nuclear stress test -exercise Nuclear stress test -exercise [facility] Work Phone: Start: 11-17-2012 End: 11-17-2012 [employer] [facility] Work Phone: Start: 11-17-2012 End: 11-17-2012 Follow Up Appt 4 months Follow Up Appt 4 months [facility] Work Phone: Start: 10-12-2012 End: 10-06-2012 24 hour holter monitor 24 hour holter monitor [facility] Work Phone: Start: 09-20-2012 End: 09-15-2012 Left Heart Cath Left Heart Cath [facility] Work Phone: Start: 09-16-2012 End: 09-22-2012 *BMP *BMP [facility] Work Phone: Start: 09-16-2012 End: 09-22-2012 CBC W Auto Differential panel - Blood *CBC without Diff [facility] Work Phone: Start: 09-16-2012 End: 09-22-2012 Chest x-ray X-Ray, Chest, PA & Lateral [facility] Work Phone: Start: 09-16-2012 End: 09-16-2012 Ecg routine ecg w/least 12 lds w/i&r EKG (In office) [facility] Work Phone: Start: 09-16-2012 End: 09-22-2012 INR Coag RelTime (PPP) *PT/INR [facility] Work Phone: Start: 09-13-2012 End: 09-13-2012 24 hour holter monitor 24 hour holter monitor [facility] Work Phone: Start: 09-13-2012 End: 09-15-2012 BNP *Brain Natriuretic Peptide BNP [facility] Work Phone: Start: 09-13-2012 End: 09-13-2012 Echocardiography Echocardiogram (complete) [facility] Work Phone: Start: 09-01-2012 End: 09-01-2012 Follow Up Appt 3 months Follow Up Appt 3 months [facility] Work Phone: Start: 03-09-2012 End: 09-01-2012 *BMP *BMP [facility] Work Phone: Start: 03-09-2012 End: 03-09-2012 Follow Up Appt 6 months Follow Up Appt 6 months [facility] Work Phone: Start: 01-12-2007 Medicare Annual Wellness Visit Medicare Annual Wellness Visit [facility] Start: 1982 Screening for malignant neoplasm of breast MAMMOGRAM SCREENING DISCUSSION [facility] Start: 1963 Screening for malignant neoplasm of cervix CERVICAL CANCER SCREENING DISCUSSION [facility] Start: 1961 Third diphtheria, tetanus and acellular pertussis (DTaP) vaccination TDAP (ADULT) [facility] Start: 1942 Screening for osteoporosis DEXA SCAN DISCUSSION [facility] Bacteria identified in Urine by Culture URINE CULTURE Microbiology Routine Urinary frequency Ordered: 08/19/2022 [facility] Work Phone: Comment on above: Ordered: 08/19/2022 Bacteria identified in Urine by Culture BACTERIAL CULTURE, URINE Microbiology Routine Dysuria 11/02/2024 2:30 PM EST [facility] CBC W Auto Different ial panel - Blood [facility] Work Phone: CBC W Auto Different ial panel - Blood [facility] Clostridioides diffi cile toxin genes [Presence] in Stool by MIGUEL ANGEL with probe detection C. DIFFICILE PCR Lab Routine Diarrhea, unspecified type 04/16/2023 9:00 AM EDT [facility] Work Phone: Complete blood count [facility] End: 12-01-2024 CT Head WO contrast CT BRAIN WO IVCON Radiology Routine TIA (transient ischemic attack) Aphasia Ocular migraine 1 Occurrences starting 11/02/2023 until 12/01/2024 [facility] Work Phone: Comment on above: 1 Occurrences starting 11/02/2023 until 12/01/2024 DXA Bone [Mass/Area] Bone density [facility] Work Phone: DXA Bone [Mass/Area] Bone density [facility] ENTERIC BACTERIAL PA JAQUELIN BY PCR ENTERIC BACTERIAL PANEL BY PCR Lab Routine Diarrhea, unspecified type 04/16/2023 8:00 AM EDT [facility] Work Phone: Folate [Mass/volume] in Serum or Plasma [facility] Rockholds and lambda lig ht chains [facility] Breast - right Screening [facility] Work Phone: MG Breast - right Screening [facility] MG Breast - right Screening [facility] MG Breast Diagnostic [facility] Ova and parasites identified in Unspecified specimen by Light microscopy OVA + PARA MICROSCOPIC Microbiology Routine Diarrhea, unspecified type 04/16/2023 8:00 AM EDT [facility] Work Phone: Patient Education [facility] Work Phone: Patient referral [facility] Work Phone: End: 05-18-2025 Polysomnogram POLYSOMNOGRAM (PSG) Procedures Routine Sleep apnea, unspecified type 1 Occurrences starting 05/18/2024 until 05/18/2025 [facility] Work Phone: Comment on above: 1 Occurrences starting 05/18/2024 until 05/18/2025 End: 01-15-2024 PVR ANK PRESS [facility] PVR ANK PRESS [facility] Vascular Lab Routine Onychomycosis Diminished pulses in lower extremity 1 Occurrences starting 01/14/2023 until 01/15/2024 [facility] Work Phone: Comment on above: 1 Occurrences starting 01/14/2023 until 01/15/2024 Radionuclide imaging of perfusion of myocardium under exercise stress [facility] Respiratory pathogen s DNA and RNA panel - Respiratory specimen by MIGUEL ANGEL with probe detection [facility] Thiamine measurement [facility] Thyroid stimulating hormone measurement [facility] UA DIP, URINE (POC) UA DIP, URIN E (POC) Lab Routine Dysuria Ordered: 11/02/2024 [facility] Work Phone: Comment on above: Ordered: 11/02/2024 Urinalysis complete panel - Urine URINALYSIS, WITH MICROSCOPIC Lab Routine Dysuria 11/02/2024 2:30 PM EST [facility] End: 11-02-2024 US Carotid arteries - bilateral US CAROTID ARTERIES [facility] V[facility] Lab Routine TIA (transient ischemic attack) Aphasia Ocular migraine 1 Occurrences starting 11/02/2023 until 11/02/2024 [facility] Work Phone: Comment on above: 1 Occurrences starting 11/02/2023 until 11/02/2024 [facility] Work Phone: [facility] Vitamin B12 measurement [facility] Vitamin D, 1,25-dihy droxy measurement [facility] Work Phone: End: 05-15-2024 XR ABDOMEN 1V SUPINE XR ABDOMEN 1V SUPINE Radiology Routine Diarrhea, unspecified type 1 Occurrences starting 04/16/2023 until 05/15/2024 [facility] Work Phone: Comment on above: 1 Occurrences starting 04/16/2023 until 05/15/2024 XR ABDOMEN 1V SUPINE XR ABDOMEN 1V SUPINE Radiology Routine Diarrhea, unspecified type 04/16/2023 9:01 AM EDT [facility] Work Phone: XR Knee - right 4 Views XR KNEE GENERAL 4V AP BOTH/PA BOTH/LAT/MERC RIGHT Radiology Routine Primary osteoarthritis of right knee 04/24/2025 12:34 PM EDT [facility] Work Phone: End: 05-17-2023 XR KNEE GENERAL 4V AP BOTH/PA BOTH/LAT/MERC RIGHT XR KNEE GENERAL 4V AP BOTH/PA BOTH/LAT/MERC RIGHT Radiology Routine Pain 1 Occurrences starting 04/17/2022 until 05/17/2023 [facility] Work Phone: Comment on above: 1 Occurrences starting 04/17/2022 until 05/17/2023 End: 08-27-2024 XR KNEE GENERAL 4V AP BOTH/PA BOTH/LAT/MERC RIGHT XR KNEE GENERAL 4V AP BOTH/PA BOTH/LAT/MERC RIGHT Radiology Routine Right knee pain, unspecified chronicity 1 Occurrences starting 07/29/2023 until 08/27/2024 [facility] Work Phone: Comment on above: 1 Occurrences starting 07/29/2023 until 08/27/2024 End: 12-02-2025 XR Lumbar spine 3 Views XR LUMBAR GENERAL 3V AP/LAT/L5-S1 Radiology Routine Acute midline back pain, unspecified back location Fall, subsequent encounter 1 Occurrences starting 11/02/2024 until 12/02/2025 [facility] Comment on above: 1 Occurrences starting 11/02/2024 until 12/02/2025 XR Lumbar spine 3 Views XR LUMBA R GENERAL 3V AP/LAT/L5-S1 Radiology Routine Acute midline back pain, unspecified back location Fall, subsequent encounter 11/02/2024 1:40 PM [facility] End: 05-05-2026 XR Shoulder - right 3 Views XR SHOULDER GENERAL 3V OR MORE AP/TRUE AP/OTHER RIGHT Radiology Routine Right shoulder pain, unspecified chronicity 1 Occurrences starting 04/05/2025 until 05/05/2026 [facility] Work Phone: Comment on above: 1 Occurrences starting 04/05/2025 until 05/05/2026 XR Shoulder - right 3 Views XR SHOULDER GENERAL 3V OR MORE AP/TRUE AP/OTHER RIGHT Radiology Routine Right shoulder pain, unspecified chronicity 04/24/2025 11:08 AM EDT [facility] Work Phone: End: 12-02-2025 XR Thoracic spine AP and Lateral and Swimmers XR THORACIC GENERAL 3V AP/LAT/SWIMMERS Radiology Routine Acute midline back pain, unspecified back location Fall, subsequent encounter 1 Occurrences starting 11/02/2024 until 12/02/2025 [facility] Comment on above: 1 Occurrences starting 11/02/2024 until 12/02/2025 XR Thoracic spine AP and Lateral and Swimmers XR THORACIC GENERAL 3V AP/LAT/SWIMMERS Radiology Routine Acute midline back pain, unspecified back location Fall, subsequent encounter 11/02/2024 1:40 PM EST [facility] Immunizations Immunization Date Immunization Notes Care Provider Niko engel 08-13-2024 influenza virus vacc ine, unspecified formulation Rochelle Hackett MD Work Phone: [facility] 07-09-2023 influenza (HD-IIV4) vaccine, age 65+ yr, high dose, quadrivalent, PF (FLUZONE HIGH-DOSE) Al Nichole APRN.CNP Work Phone: [facility] 07-09-2023 influenza virus vacc ine, unspecified formulation Rochelle Hackett MD Work Phone: [facility] 06-30-2022 tetanus and diphther ia toxoids, adsorbed, preservative free, for adult use (5 Lf of tetanus toxoid and 2 Lf of diphtheria toxoid) Sofía Baig PA-C Work Phone: [facility] 05-21-2022 influenza (aIIV4) vaccine, age 65+ yr, quadrivalent, PF (FLUAD QUADRIVALENT) Sofía Bogner PA-C Work Phone: [facility] 05-21-2022 influenza, high dose seasonal, preservative-free Maggi Aldana PA-C Work Phone: [facility] 12-30-2021 COVID-19 original vaccine, age 12+ yr, monovalent (PFIZER-BIONTECH - AGUILAR TOP) Sofía Baig PA-C Work Phone: [facility] 12-30-2021 COVID-19 vaccine, ag e 12+ yr (PFIZER-BIONTECH - PURPLE TOP) Al Nichole ANTENNA RIGGER.ALMOND BLANCHER Work Phone: [facility] 11-25-2021 hepatitis A vaccine, adult dosage Rochelle Hackett MD Work Phone: [facility] 05-29-2021 influenza (aIIV4) vaccine, age 65+ yr, quadrivalent, PF (FLUAD QUADRIVALENT) Rochelle Hackett MD Work Phone: [facility] 05-15-2021 influenza virus vacc ine, unspecified formulation Rochelle Hackett MD Work Phone: [facility] 11-06-2020 Covid (Pfizer) Dr. Rochelle friedman Work Phone: [facility] 10-16-2020 Covid (Pfizer) Dr. Rochelle friedman Work Phone: [facility] 05-26-2020 influenza, injectabl e, quadrivalent, preservative free Sofía Bogner PA-C Work Phone: [facility] 05-26-2020 zoster vaccine recombinant Sofía Bogner PA-C Work Phone: [facility] 05-23-[address] Rochelle Hackett Work Phone: [facility] 05-23-2020 influenza, seasonal, injectable, preservative free Sofía Bogner PA-C Work Phone: [facility] 03-05-2020 hepatitis A vaccine, adult dosage Sofía Bogner PA-C Work Phone: [facility] 03-05-2020 zoster vaccine recombinant Sofía Bogner PA-C Work Phone: [facility] 07-26-2019 influenza, high dose seasonal, preservative-free Rochelle Hackett MD Work Phone: [facility] Work Phone: 07-15-[address] Rochelle Hackett Work Phone: [facility] 11-16-2018 influenza, seasonal, injectable, preservative free Sofía Bogner PA-C Work Phone: [facility] 11-16-2018 pneumococcal polysaccharide vaccine, 23 valent Sofía Bogner PA-C Work Phone: [facility] 12-10-2017 influenza, seasonal, injectable, preservative free Sofía Bogner PA-C Work Phone: [facility] 12-10-2017 pneumococcal polysaccharide vaccine, 23 valent Sofía Bogner PA-C Work Phone: [facility] 12-20-2015 pneumococcal conjuga te vaccine, 13 valent Rochelle Hackett MD Work Phone: [facility] Work Phone: 07-11-[address] Rochelle Hackett Work Phone: [facility] 06-14-2013 influenza virus vacc ine, unspecified formulation Maya Sal MD Work Phone: [facility] 07-12-2012 influenza virus vacc ine, unspecified formulation Rochelle Hackett MD Work Phone: [facility] Work Phone: 01-08-2010 tetanus and diphther ia toxoids, adsorbed, preservative free, for adult use (2 Lf of tetanus toxoid and 2 Lf of diphtheria toxoid) Rochelle Hackett MD Work Phone: [facility] Work Phone: 01-08-2010 zoster vaccine, live Rochelle Hackett MD Work Phone: [facility] Work Phone: 06-12-2009 influenza virus vacc ine, unspecified formulation Rochelle Hackett MD Work Phone: [facility] Work Phone: 05-04-2007 pneumococcal polysaccharide vaccine, 23 valent Rochelle Hackett MD Work Phone: [facility] Work Phone: 05-04-[address] Marcos Hackett Work Phone: [facility] Work Phone: 05-04-2007 pneumococcal vaccine , unspecified formulation Dr. Rochelle Hackett Work Phone: [facility] Payers Date Payer Category Payer Private Health Insurance [employer] SU[employer]MENT [id number] 2021-Present [phone] [address] [place] [address] Indemni [id number] 2017 Private Health Insurance [id number] 2017 Self-pay [id number] 2010 Private Health Insurance [id number] 2010 Private Health Insurance [id number] 2007 Medicare MEDICARE MEDICAR E A AND B [id number] 2007-Present [phone] [address] [address] [place] [address] Medicare [id number] 2007 Medicare [id number] 2007 Medicare [id number] 1942 Unknown [id number] 1942 Unknown [id number] Unknown [id number]. [id number] Unknown [id number] Unknown [id number] [id number] Unknown [id number] [id number] Unknown [id number] [id number] Unknown [id number]. 2.462 Unknown [id number]. 2.462 Unknown [id number]. 2.462 Unknown [id number]. 2.462 Unknown [id number]. 2.462 Unknown [id number]. 2.462 Unknown [id number]. 2.462 Unknown [id number]. 2.462 Unknown [id number] 2.16840.1.101091.3.579. 2.462 Unknown [id number] 2.16.840.1.715457.3.579. 2.462 Unknown [id number] 2.16.840.1.461435.3.579. 2.462 Unknown [id number] 2.16.840.1.190117.3.579. 2.462 Unknown [id number] 2.16.840.1.890389.3.579. 2.462 Unknown [id number] 2.16.840.1.766103.3.579. 2.462 Unknown [id number] 2.16.840.1.177880.3.579. 2.462 Unknown [id number] 2.16840.1.094619.3.579. 2.462 Unknown [id number] 2.16.840.1.511905.3.579. 2.462 Unknown [id number] 2.840.1.332053.3.579. 2.462 Unknown [id number] 2.840.1.520750.3.579. 2.462 Unknown [id number] 2.16840.1.509273.3.579. 2.462 Unknown [id number] 2.16840.1.138139.3.579. 2.462 Unknown [id number] 2.16.840.1.445462.3.579. 2.462 Unknown [id number] 2.16840.1.085159.3.579. 2.462 Unknown [id number] 2.16840.1.020282.3.579. 2.462 Unknown [id number] 2.16840.1.633858.3.579. 2.462 Unknown [id number] 2.16840.1.616644.3.579. 2.462 Unknown [id number] 2.16840.1.263648.3.579. 2.462 Social History Date Type Detail Facility Start: 11-25-2021 End: 08-29-2023 Tobacco smoking status NHIS Unknown if ever smoked [facility] Start: 01-21-2021 Occasional [facility] Start: 01-21-2021 None [facility] Start: 01-21-2021 Homeless [facility] Start: 01-21-2021 Non-smoker [facility] Start: 1940 Sex Assigned At Female [facility] Work Phone: Start: 04-21-2022 End: 10-30-2024 Tobacco smoking status NHIS Never smoked tobacco [facility] Start: 10-07-2021 End: 05-18-2025 Alcohol intake Current drinker of alcohol (finding) [facility] Start: 10-07-2021 End: 01-14-2023 Alcohol intake [facility] Start: 01-27-2020 End: 08-22-2022 History SDOH Alcohol Frequency 3 [facility] Start: 11-17-2019 End: 08-22-2022 History SDOH Alcohol Std Drinks 1 [facility] Start: 10-28-2012 History SDOH Alcohol Comment 1 glass per week [facility] Start: 11-17-2019 End: 08-22-2022 History SDOH Social Connections Phone 5 [facility] Start: 11-17-2019 End: 08-22-2022 History SDOH Transport Med 2 [facility] Start: 11-16-2019 Education 20 [facility] Start: 02-23-2021 End: 08-04-2022 Exposure to SARS-CoV-2 (event) Not sure [facility] Start: 07-13-2013 End: 04-21-2022 Tobacco use and exposure Smokeless tobacco non-user [facility] Start: 05-15-2022 End: 08-22-2022 History SDOH Social Connections Get Together 4 [facility] Start: 08-22-2022 History SDOH Alcohol Std Drinks 0 [facility] Start: 08-22-2022 End: 01-14-2023 Social connection and isolation panel [facility] Do you belong to any clubs or organizations such as zoroastrianism groups, unions, fraternal or athletic groups, or school groups? Yes [facility] Are you now , , , , never or living with a partner? [facility] How often to you hav e a drink containing alcohol? Monthly or less [facility] Start: 08-15-2012 How many standard drinks containing alcohol do you have on a typical day? Patient does not drink [facility] How often do you hav e 6 or more drinks on 1 occasion? Never [facility] Do you feel stress - tense, restless, nervous, or anxious, or unable to sleep at night because your mind is troubled all the time - these days [OSQ] Only a little [facility] (I/We) worried shiloh er (my/our) food would run out before (I/we) got money to buy more. Never true [facility] In the past 12 month s, was there a time when you were not able to pay the mortgage or rent on time? No [facility] Start: 09-29-2017 Gender identity Identifies as female gender (finding) [facility] Work Phone: Start: 02-01-2020 Sexual orientation Heterosexual (finding) [facility] Work Phone: How often to you hav e a drink containing alcohol? 2-4 times a month [facility] How many standard dr inks containing alcohol do you have on a typical day? 1 or 2 [facility] Do you feel stress - tense, restless, nervous, or anxious, or unable to sleep at night because your mind is troubled all the time - these days [OSQ] To some extent [facility] Start: 09-29-2024 Alcoholic beverage intake Current non-drinker of alcohol (finding) [facility] Start: 07-13-2013 Alcohol Comment used to drink 1 glass of wine daily but not an occassional sip out of her 's glass. [facility] Start: 1940 Sex assigned at Not on file [facility] Start: 12-23-2024 Sex Female (finding) [facility] Functional Status Date Assessment Result Facility 05-18-2025 Total score [AUDIT-C] 2 05/18/20 25 10:24 AM EDT Al Nichole APRN.CNP [facility] 05-04-2025 Total score [AUDIT-C] 1 05/04/20 25 3:24 PM EDT User, Mychart [facility] 05-04-2025 How often to you hav e a drink containing alcohol? Monthly or less 05/04/2025 3:24 PM EDT User, Mychart Monthly or less [facility] 05-04-2025 Functional status Patient does n ot drink 05/04/2025 3:24 PM EDT User, [email or web address] Patient does not drink [facility] 05-04-2025 How often do you hav e 6 or more drinks on 1 occasion? Never 05/04/2025 3:24 PM EDT User, Rachellhart Never [facility] 11-04-2024 Total score [AUDIT-C] 0 11/04/19 4:25 PM EST User, [email or web address] [facility] 11-04-2024 Within the last year , have you been humiliated or emotionally abused in other ways by your partner or ex-partner? No 11/04/2024 4:25 PM EST User, [email or web address] No [facility] 11-04-2024 Within the last year , have you been afraid of your partner or ex-partner? No 11/04/2024 4:25 PM EST User, Rachellhart No [facility] 11-04-2024 Within the last year , have you been raped or forced to have any kind of sexual activity by your partner or ex-partner? No 11/04/2024 4:25 PM EST User, Rachellhart No [facility] 11-04-2024 Within the last year , have you been kicked, hit, slapped, or otherwise physically hurt by your partner or ex-partner? No 11/04/2024 4:25 PM EST User, [email or web address] No [facility] 11-04-2024 How often to you hav e a drink containing alcohol? Never 11/04/2024 4:25 PM EST User, Mychart Never [facility] 11-04-2024 Functional status Patient does n ot drink 11/04/2024 4:25 PM EST User, Mychart Patient does not drink [facility] 11-04-2024 How often do you hav e 6 or more drinks on 1 occasion? Never 11/04/2024 4:25 PM EST User, Mychart Never [facility] 11-22-2023 Functional status Ambulates;Bath room Privilege [facility] Work Phone: 01-22-2015 Are you deaf, or do you have serious difficulty hearing No 01/22/2015 4:45 PM EDT Nadeen Cox Cma No [facility] 01-22-2015 Are you blind, or do you have serious difficulty seeing, even when wearing glasses No 01/22/2015 4:45 PM EDT Nadeen Cox Cma No [facility] 01-22-2015 Do you have serious difficulty walking or climbing stairs No 01/22/2015 4:45 PM EDT Nadeen Cox Cma No [facility] 01-22-2015 Do you have difficul ty dressing or bathing No 01/22/2015 4:45 PM EDT Nadeen Cox Cma No [facility] 01-22-2015 Because of a physica l, mental, or emotional condition, do you have difficulty doing errands alone such as visiting a physician's office or shopping No 01/22/2015 4:45 PM EDT Nadeen Cox Cma No [facility] Mental Status Date Assessment Result Facility 09-20-2024 Cognitive function Voice/Name [facility] Work Phone: 12-08-2023 Cognitive function Level Of Cons ciousness Awake;Alert;Appropriate [facility] Work Phone: 11-22-2023 Cognitive function Voice/Name [facility] Work Phone: 10-01-2023 Cognitive function Voice/Name [facility] Work Phone: 04-09-2023 Cognitive function Voice/Name [facility] Work Phone: 04-08-2023 Cognitive function Level Of Cons ciousness Awake;Alert;Appropriate [facility] Work Phone: 10-08-2022 Cognitive function Awake;Alert;A ppropriate;Fol lows Commands [facility] Work Phone: 08-17-2022 Cognitive function Voice/Name [facility] Work Phone: 10-24-2021 Cognitive function Voice/Name [facility] Work Phone: 09-26-2021 Cognitive function Voice/Name [facility] Work Phone: 07-07-2019 Cognitive function Mood Descript ion Appropriate;Calm;Relaxed [facility] Work Phone: 01-22-2015 Because of a physica l, mental, or emotional condition, do you have serious difficulty concentrating, remembering, or making decisions No 01/22/2015 4:45 PM EDT Nadeen Cox Cma No [facility] Clinical Notes 12-20-2015 to 05-18-2025 Patient Al Aponte APRN.[facility] - 05/18/2025 10:22 AM EDTMaggi Aldana PA-C - 05/08/2025 11:37 AM EDTFMari fuller MA - 05/08/2025 11:22 AM Taye Angulo RN - 04/17/2025 4:07 PM EDT Note Date & Type Note Facility 05-18-2025 Al Ramos APRN.[facility] - 05/18/2025 10:28 AM EDT Screening schedule The following prevention plan is recommended: Medicare Annual Wellness Visit Never done Advance Directive Discussion due on 09/14/2024 WHAT YOU CAN DO TO PREVENT FALLS Many falls can be prevented. By making some changes, you can lower your chances of falling. Four things YOU can do to prevent falls for you* and your caregiver 1. Begin a regular exercise program Exercise is one of the most important ways to lower your chances of falling. It makes you stronger and helps you feel better. Exercises that improve balance and coordination (like Torin Chi) are the most helpful. Lack of exercise leads to weakness and increases your chances of falling. Ask your doctor or health care provider about the best type of exercise program for you. 2. Have your health care provider review your medicines Have your doctor or pharmacist review all the medicines you take, even [id number] medicines. As you get older, the way medicines work in your body can change. Some medicines, or combinations of medicines, can make you sleepy or dizzy and can cause you to fall. 3. Have your vision checked Have your eyes checked by an eye doctor at least once a year. You may be wearing the wrong glasses or have a condition like glaucoma or cataracts that limits your vision. Poor vision can increase your chances of falling. 4. Make your home safer About half of all falls happen at home. To make your home safer: Remove things you can trip over (like papers, books, clothes, and shoes) from stairs and places where you walk. Remove small throw rugs or use double-sided tape to keep the rugs from slipping. Keep items you use often in cabinets you can reach easily without using a step stool. Have grab bars put in next to your toilet and in the tub or shower. Use non-slip mats in the bathtub and on shower floors. Improve the lighting in your home. As you get older, you need brighter lights to see well. Hang light-weight curtains or shades to reduce glare. Have handrails and lights put in on all staircases. Wear shoes both inside and outside the house. Avoid going barefoot or wearing slippers. For more information, contact: Centers for Disease Control and Prevention www.cdc.gov/injury * This information may not apply if you have certain medical conditions. documented in this encounter [facility] 05-18-2025 Note HNO ID: [id number] Author: AL NICHOLE APRN.CNP Service: ? Author Type: Nurse Practitioner Type: Progress Notes Filed: 05/18/2025 10:46 Note Text: Rosana Maki is a 85 year old female here for a Medicare wellness visit. 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 Urologist: Dr. Prince Orthopedics: Maggi Aldana Nephrology: Dr. Enciso Cardiology: Dr. Cooley Neurologist: Dr. Blanca Optometry: Dr. Khan and Dr. Jernigan Medical/Family history review Reviewed and updated problem list, medical/surgical/family/social history, medications, and allergies. Opioid use review Opioid Medications (last 90 days) No data to display Anxiety/Depression screening PHQ-9 Score: 9 (Mild Depression) JEFFERY-2 Score: 2 (Lower risk for anxiety) Recommendation: counseling seeing a therapist Cognitive screening Mini Cog Score: 5 Cognitive screening reviewed and No further action needed (score 3-5). Functional Observation Was the patient's Timed Up AND Go test unsteady or >= 12 seconds? No Advance Care Planning Surrogate decision maker documented and/or advance directives scanned in chart Measurements BP 136/86 Pulse 62 Resp 16 Wt 56.7 kg (125 lb) SpO2 99% BMI 19.58 kg/m? Vision Screening: Follows with optometry/ophthalmology Assessment/Plan Medicare annual wellness visit, subsequent (Z00.00) - Counseled on healthy diet and regular exercise - Fall avoidance information provided - Personalized prevention plan provided - Counseled patient on alcohol intake and associated health risks [facility] 05-18-2025 History of Presen t illness Narrative Images from the original note were not included. Rosana Maki is a 85 year old female here for a Medicare wellness visit. 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 Urologist: Dr. Prince Orthopedics: Maggi Aldana Nephrology: Dr. Enciso Cardiology: Dr. Cooley Neurologist: Dr. Blanca Optometry: Dr. Khan and Dr. Jernigan Medical/Family history review Reviewed and updated problem list, medical/surgical/family/social history, medications, and allergies. Opioid use review Opioid Medications (last 90 days) No data to display Anxiety/Depression screening PHQ-9 Score: 9 (Mild Depression) JEFFERY-2 Score: 2 (Lower risk for anxiety) Recommendation: counseling seeing a therapist Cognitive screening Mini Cog Score: 5 Cognitive screening reviewed and No further action needed (score 3-5). Functional Observation Was the patient's Timed Up & Go test unsteady or >= 12 seconds? No Advance Care Planning Surrogate decision maker documented and/or advance directives scanned in chart Measurements BP 136/86 Pulse 62 Resp 16 Wt 56.7 kg (125 lb) SpO2 99% BMI 19.58 kg/m Vision Screening: Follows with optometry/ophthalmology Assessment/Plan Medicare annual wellness visit, subsequent (Z00.00) - Counseled on healthy diet and regular exercise - Fall avoidance information provided - Personalized prevention plan provided - Counseled patient on alcohol intake and associated health risks documented in this encounter [facility] 05-08-2025 Note HNO ID: [id number] Author: MAGGI ALDANA PA-C Service: ? Author Type: Physician Barrel Rifler Operator Type: Progress Notes Filed: 05/08/2025 11:38 Note Text: Large Joint Arthro/Inj: R knee joint 05/08/2025 11:37 AM The procedure site was prepped in the usual sterile fashion. Site: R knee joint Medications: 20 mg sodium hyaluronate 10 mg/mL(mw 2.4 -3.6 million) Outcome: Tolerated well, no immediate complications Post-injection instructions were reviewed with the patient and the patient voiced understanding of these instructions. Informed Consent Consent Obtained: Verbal Wallace Protocol A moment to CARE was completed. SIGN IN Sign in communication not applicable due to emergent procedure. Personnel directly involved with the procedure wore the appropriate PPE. Special Equipment: N/A Patient/Surrogate Stated/Verified: Patient name, Date of , Relevant allergies and Intended procedure TIME OUT Relevant labs, photos, and/or imaging studies have been reviewed. Consent documented and matches the intended procedure. Correct side/site marked and visible. Medications required for procedure verified. No fire risk assessment and interventions applicable. No implant(s) inserted. SIGN OUT No specimen collected. All instruments, equipment, possible retained foreign bodies accounted for. No post-procedure POC communication to the patient's multidisciplinary team (including the bedside nurse for hospitalized patients) applicable. [facility] 05-08-2025 History of Presen t illness Narrative Associated Order(s): Large Joint Arthro/Inj: R knee joint Post-Procedure Diagnose(s): Primary osteoarthritis of right knee Large Joint Arthro/Inj: R knee joint 05/08/2025 11:37 AM The procedure site was prepped in the usual sterile fashion. Site: R knee joint Medications: 20 mg sodium hyaluronate 10 mg/mL(mw 2.4 -3.6 million) Outcome: Tolerated well, no immediate complications Post-injection instructions were reviewed with the patient and the patient voiced understanding of these instructions. Informed Consent Consent Obtained: Verbal Wallace Protocol A moment to CARE was completed. SIGN IN Sign in communication not applicable due to emergent procedure. Personnel directly involved with the procedure wore the appropriate PPE. Special Equipment: N/A Patient/Surrogate Stated/Verified: Patient name, Date of , Relevant allergies and Intended procedure TIME OUT Relevant labs, photos, and/or imaging studies have been reviewed. Consent documented and matches the intended procedure. Correct side/site marked and visible. Medications required for procedure verified. No fire risk assessment and interventions applicable. No implant(s) inserted. SIGN OUT No specimen collected. All instruments, equipment, possible retained foreign bodies accounted for. No post-procedure POC communication to the patient's multidisciplinary team (including the bedside nurse for hospitalized patients) applicable. Patient presents with: Right Knee - Injections: Euflexxa injection # 3 right knee AMB ROOMING INTAKE FLOWSHEET DATA Pain Pain Level: 3 Pain Location: Knee-Right Description: Tenderness, Stabbing, Aching Duration Amount of Time: (Ongoing) Frequency: Intermittent Intervention/Comfort measure: Medication Patient here for Euflexxa injection # 3 right knee. Taking Tylenol for the pain. LOT # [id number] EXP 09/03/2025 Mari Conti MA documented in this encounter [facility] 05-08-2025 Note HNO ID: [id number] Author: MARI CONTI MA Service: ? Author Type: Supervisor Print Line Type: Progress Notes Filed: 05/08/2025 11:38 Note Text: Patient presents with: Right Knee - Injections: Euflexxa injection # 3 right knee AMB ROOMING INTAKE FLOWSHEET DATA Pain Pain Level: 3 Pain Location: Knee-Right Description: Tenderness, Stabbing, Aching Duration Amount of Time: (Ongoing) Frequency: Intermittent Intervention/Comfort measure: Medication Patient here for Euflexxa injection # 3 right knee. Taking Tylenol for the pain. LOT # [id number] EXP 09/03/2025 Mari Conti MA [facility] 05-01-2025 Note HNO ID: [id number] Author: MAGGI ALDANA PA-C Service: ? Author Type: Physician Barrel Rifler Operator Type: Progress Notes Filed: 05/01/2025 12:06 Note Text: Large Joint Arthro/Inj: R knee joint 05/01/2025 12:06 PM The procedure site was prepped in the usual sterile fashion. Site: R knee joint Medications: 20 mg sodium hyaluronate 10 mg/mL(mw 2.4 -3.6 million) Outcome: Tolerated well, no immediate complications Post-injection instructions were reviewed with the patient and the patient voiced understanding of these instructions. Informed Consent Consent Obtained: Verbal Wallace Protocol A moment to CARE was completed. SIGN IN Sign in communication not applicable due to emergent procedure. Personnel directly involved with the procedure wore the appropriate PPE. Special Equipment: N/A Patient/Surrogate Stated/Verified: Patient name, Date of , Relevant allergies and Intended procedure TIME OUT Relevant labs, photos, and/or imaging studies have been reviewed. Consent documented and matches the intended procedure. Correct side/site marked and visible. Medications required for procedure verified. No fire risk assessment and interventions applicable. No implant(s) inserted. SIGN OUT No specimen collected. All instruments, equipment, possible retained foreign bodies accounted for. No post-procedure POC communication to the patient's multidisciplinary team (including the bedside nurse for hospitalized patients) applicable. [facility] 05-01-2025 History of Presen t illness Narrative Associated Order(s): Large Joint Arthro/Inj: R knee joint Post-Procedure Diagnose(s): Primary osteoarthritis of right knee Large Joint Arthro/Inj: R knee joint 05/01/2025 12:06 PM The procedure site was prepped in the usual sterile fashion. Site: R knee joint Medications: 20 mg sodium hyaluronate 10 mg/mL(mw 2.4 -3.6 million) Outcome: Tolerated well, no immediate complications Post-injection instructions were reviewed with the patient and the patient voiced understanding of these instructions. Informed Consent Consent Obtained: Verbal Wallace Protocol A moment to CARE was completed. SIGN IN Sign in communication not applicable due to emergent procedure. Personnel directly involved with the procedure wore the appropriate PPE. Special Equipment: N/A Patient/Surrogate Stated/Verified: Patient name, Date of , Relevant allergies and Intended procedure TIME OUT Relevant labs, photos, and/or imaging studies have been reviewed. Consent documented and matches the intended procedure. Correct side/site marked and visible. Medications required for procedure verified. No fire risk assessment and interventions applicable. No implant(s) inserted. SIGN OUT No specimen collected. All instruments, equipment, possible retained foreign bodies accounted for. No post-procedure POC communication to the patient's multidisciplinary team (including the bedside nurse for hospitalized patients) applicable. [facility] ROOMING INTAKE FLOWSHEET DATA Pain Pain Level: 4 Pain Location: Knee-Right Description: Aching, Other: See comment (jabbing) Duration Amount of Time: (ongoing) Frequency: Intermittent Intervention/Comfort measure: Other: See comment (none) Euflexxa injection # 2 into right knee LOT # [id number] EXP 09/03/2025 Dipika Merchant MA documented in this encounter [facility] 05-01-2025 Note HNO ID: [id number] Author: DIPIKA MERCHANT MA Service: ? Author Type: Supervisor Print Line Type: Progress Notes Filed: 05/01/2025 12:06 Note Text: AMB ROOMING INTAKE FLOWSHEET DATA Pain Pain Level: 4 Pain Location: Knee-Right Description: Aching, Other: See comment (jabbing) Duration Amount of Time: (ongoing) Frequency: Intermittent Intervention/Comfort measure: Other: See comment (none) Euflexxa injection # 2 into right knee LOT # [id number] EXP 09/03/2025 Dipika Merchant MA [facility] 04-24-2025 Note HNO ID: [id number] Author: MAGGI ALDANA PA-C Service: ? Author Type: Physician Barrel Rifler Operator Type: Progress Notes Filed: 05/01/2025 08:07 Note Text: Maggi Aldana PA-C Department of Orthopaedics Orthopaedics [address] [facility] [address] Dept: [phone] Dept April 24, 2025 CHIEF COMPLAINT: Pain of the Right Shoulder Right Shoulder Pain: - Chronic pain, never fully resolved. - Last cortisone injection in August 2023 provided temporary relief for 1-2 months. - Aggravated by overhead movements; avoids certain exercises due to pain. - Engages in chair yoga, modifying movements to avoid pain. - Denies significant relief from previous treatments. Right Knee Pain: - Chronic pain with variable locations: lateral, posterior, and medial aspects. - Pain radiates down the right leg at times. - Aggravated by extensive walking, stair climbing, and standing from a sitting position without arm support. - Engages in leg press, abduction, and adduction exercises without significant pain. - Previous euflexxa injections provided better relief than cortisone. Polyneuropathy: - Diagnosed with polyneuropathy of unknown etiology. - Symptoms have worsened over the past 2.5-3 years. - Undergoing physical therapy for balance and strength, reports improvement in balance. ASSESSMENT: M17.11 Primary osteoarthritis of right knee (primary encounter diagnosis) M19.011 Primary osteoarthritis of right shoulder PLAN: 1. Primary osteoarthritis of right knee (M17.11) - Start Euflexxa series (3 weekly injections); patient previously tolerated and found beneficial. - Repeat knee X-rays ordered; to be completed today or prior to next Thursday's appointment. - Advised to avoid exercises that exacerbate knee pain, such as standing from a seated position without arm support. - Follow-up next Thursday for second Euflexxa injection. 2. Primary osteoarthritis of right shoulder (M19.011) - Chronic pain with limited relief from prior corticosteroid August 2023. - X-rays from today compared to 2020 show no significant progression; joint space narrowing remains severe. - Corticosteroid injection administered today; may repeat every 91 days if beneficial. - Advised to avoid overhead activities and exercises that aggravate pain; maintain arm position below 90 degrees during activities. - Discussed potential benefit of medical massage for muscle tension; patient may trial at [employer]. Mrs. Rosana Maki was advised as to contrast therapies and/or to take analgesics/anti-inflammatories as needed and all contraindications were reviewed. OBJECTIVE: Mrs. Rosana Maki is a pleasant 85 year old in no apparent distress. Gen:There were no vitals taken for this visit. nl development, non obese, no deformities ENT: Normocephalic, normal hearing, moist mucosa CV: Pulses:Radial= 2+ and symmetric, capillary refill < 2 secs, no peripheral edema/varicosities Skin: no rash, bruising or lesions. Good turgor. Psych: cooperative and appropriate, alert and oriented x 3, good mood and affect. Musculoskeletal: Supple range of motion of the cervical spine without pain. Spurling signs are negative. No atrophy of the deltoid and shoulder musculature. Right shoulder is nontender to palpation over the SC joint, clavicle and AC joint. Mild tenderness to palpation over the posterior shoulder, nontender at anterior lateral corner of the shoulder and greater tuberosity. Mildly tender at the bicipital groove and coracoid. Active range of motion is 165 degrees of forward elevation, 45 degrees external rotation, and internal rotation to the low lumbar spine. No laxity with anterior and posterior stress. Negative Neer and negative Walter impingement signs. 5/5 strength with supraspinatus, infraspinatus and subscapularis. Sensation is intact in the axillary, radial, median and ulnar nerve distribution KNEE EXAM: Right: Alignment: Valgus deformity, Partially Correctable Range of motion is lacking a few degrees secondary to tight hamstrings degrees in extension and 120 degrees of flexion. Extension Lag: < 10 degrees Pain with ROM: Yes Effusion: None Tender to the palpation of Patellar tendon, Lateral femoral condyle, and Lateral joint line Pain with patellar compression: No Stability: Anterior/Posterior stable and Varus/Valgus stable Hip Exam: flexion to 100+ degrees, full extension, internal/external rotation adequate, and no pain with log roll Neurovascular Status: Sensation Intact, Moves foot and ankle up AND down, and 2+ dorsalis pedis In addition to the comprehensive evaluation, assessment and plan outlined above, and as a distinct and separate element to the visit today, separate from the separate complaint of chronic knee and shoulder pain, we have made the determination to proceed with an injection to aid in the management of the patient's condition (more content not included)... [facility] 04-24-2025 History of Presen t illness Narrative Associated Order(s): Large Joint Arthro/Inj: R subacromial bursa; Large Joint Arthro/Inj: R knee joint Post-Procedure Diagnose(s): Primary osteoarthritis of right shoulder; Primary osteoarthritis of right knee Maggi Aldana PA-C Department of Orthopaedics Orthopaedics [address] [facility] [address] Dept: [phone] Dept April 24, 2025 CHIEF COMPLAINT: Pain of the Right Shoulder Right Shoulder Pain: - Chronic pain, never fully resolved. - Last cortisone injection in August 2023 provided temporary relief for 1-2 months. - Aggravated by overhead movements; avoids certain exercises due to pain. - Engages in chair yoga, modifying movements to avoid pain. - Denies significant relief from previous treatments. Right Knee Pain: - Chronic pain with variable locations: lateral, posterior, and medial aspects. - Pain radiates down the right leg at times. - Aggravated by extensive walking, stair climbing, and standing from a sitting position without arm support. - Engages in leg press, abduction, and adduction exercises without significant pain. - Previous euflexxa injections provided better relief than cortisone. Polyneuropathy: - Diagnosed with polyneuropathy of unknown etiology. - Symptoms have worsened over the past 2.5-3 years. - Undergoing physical therapy for balance and strength, reports improvement in balance. ASSESSMENT: M17.11 Primary osteoarthritis of right knee (primary encounter diagnosis) M19.011 Primary osteoarthritis of right shoulder PLAN: 1. Primary osteoarthritis of right knee (M17.11) - Start Euflexxa series (3 weekly injections); patient previously tolerated and found beneficial. - Repeat knee X-rays ordered; to be completed today or prior to next Thursday's appointment. - Advised to avoid exercises that exacerbate knee pain, such as standing from a seated position without arm support. - Follow-up next Thursday for second Euflexxa injection. 2. Primary osteoarthritis of right shoulder (M19.011) - Chronic pain with limited relief from prior corticosteroid August 2023. - X-rays from today compared to 2020 show no significant progression; joint space narrowing remains severe. - Corticosteroid injection administered today; may repeat every 91 days if beneficial. - Advised to avoid overhead activities and exercises that aggravate pain; maintain arm position below 90 degrees during activities. - Discussed potential benefit of medical massage for muscle tension; patient may trial at [employer]. Mrs. Rosana Maki was advised as to contrast therapies and/or to take analgesics/anti-inflammatories as needed and all contraindications were reviewed. OBJECTIVE: Mrs. Rosana aMki is a pleasant 85 year old in no apparent distress. Gen:There were no vitals taken for this visit. nl development, non obese, no deformities ENT: Normocephalic, normal hearing, moist mucosa CV: Pulses:Radial= 2+ and symmetric, capillary refill < 2 secs, no peripheral edema/varicosities Skin: no rash, bruising or lesions. Good turgor. Psych: cooperative and appropriate, alert and oriented x 3, good mood and affect. Musculoskeletal: Supple range of motion of the cervical spine without pain. Spurling signs are negative. No atrophy of the deltoid and shoulder musculature. Right shoulder is nontender to palpation over the SC joint, clavicle and AC joint. Mild tenderness to palpation over the posterior shoulder, nontender at anterior lateral corner of the shoulder and greater tuberosity. Mildly tender at the bicipital groove and coracoid. Active range of motion is 165 degrees of forward elevation, 45 degrees external rotation, and internal rotation to the low lumbar spine. No laxity with anterior and posterior stress. Negative Neer and negative Walter impingement signs. 5/5 strength with supraspinatus, infraspinatus and subscapularis. Sensation is intact in the axillary, radial, median and ulnar nerve distribution KNEE EXAM: Right: Alignment: Valgus deformity, Partially Correctable Range of motion is lacking a few degrees secondary to tight hamstrings degrees in extension and 120 degrees of flexion. Extension Lag: < 10 degrees Pain with ROM: Yes Effusion: None Tender to the palpation of Patellar tendon, Lateral femoral condyle, and Lateral joint line Pain with patellar compression: No Stability: Anterior/Posterior stable and Varus/Valgus stable Hip Exam: flexion to 100+ degrees, full extension, internal/external rotation adequate, and no pain with log roll Neurovascular Status: Sensation Intact, Moves foot and ankle up & down, and 2+ dorsalis pedis In addition to the comprehensive evaluation, assessment and plan outlined above, and as a distinct and separate element to the visit today, separate from the separate complaint of chronic knee and shoulder pain, we have made the determination to proceed with an injection to aid in the management of the patient's condition. We discussed the risks, benefits, alternatives and expected outcomes of this injection in detail, and the patient agreed to proceed. The procedure was performed as detailed below. Large Joint Arthro/Inj: R subacromial bursa 04/24/2025 2:16 PM The procedure site was prepped in the usual sterile fashion. Site: R subacromial bursa Medications: 6 mg betamethasone acetate-betamethasone sodium phosphate 6 mg/mL Anesthetics: 5 mL lidocaine (PF) 10 mg/mL (1 %) Outcome: Tolerated well, no immediate complications Post-injection instructions were reviewed with the patient and the patient voiced understanding of these instructions. Informed Consent Consent Obtained: Verbal Wallace Protocol A moment to CARE was completed. SIGN IN Sign in communication not applicable due to emergent procedure. Personnel directly involved with the procedure wore the appropriate PPE. Special Equipment: N/A Patient/Surrogate Stated/Verified: Patient name, Date of , Relevant allergies and Intended procedure TIME OUT Relevant labs, photos, and/or imaging studies have been reviewed. Consent documented and matches the intended procedure. Correct side/site marked and visible. Medications required for procedure verified. No fire risk assessment and interventions applicable. No implant(s) inserted. SIGN OUT No specimen collected. All instruments, equipment, possible retained foreign bodies accounted for. No post-procedure POC communication to the patient's multidisciplinary team (including the bedside nurse for hospitalized patients) applicable. Large Joint Arthro/Inj: R knee joint 04/24/2025 2:16 PM The procedure site was prepped in the usual sterile fashion. Site: R knee joint Medications: 20 mg sodium hyaluronate 10 mg/mL(mw 2.4 -3.6 million) Outcome: Tolerated well, no immediate complications Post-injection instructions were reviewed with the patient and the patient voiced understanding of these instructions. Informed Consent Consent Obtained: Verbal Wallace Protocol A moment to CARE was completed. SIGN IN Sign in communication not applicable due to emergent procedure. Personnel directly involved with the procedure wore the appropriate PPE. Special Equipment: N/A Patient/Surrogate Stated/Verified: Patient name, Date of , Relevant allergies and Intended procedure TIME OUT Relevant labs, photos, and/or imaging studies have been reviewed. Consent documented and matches the intended procedure. Correct side/site marked and visible. Medications required for procedure verified. No fire risk assessment and interventions applicable. No implant(s) inserted. SIGN OUT No specimen collected. All instruments, equipment, possible retained foreign bodies accounted for. No post-procedure POC communication to the patient's multidisciplinary team (including the bedside nurse for hospitalized patients) applicable. Imaging: * * *Final Report* * * DATE OF EXAM: Apr 24 2025 12:34PM [id number] - XR KNEE 4V AP/PA BOTH+LAT/OSCAR RT / PROCEDURE REASON: Primary osteoarthritis of right knee * * * * Physician Interpretation * * * * EXAMINATION / TECHNIQUE: XR KNEE 4V AP/PA BOTH+LAT/OSCAR RT HISTORY: PT STATES HISTORY OF RIGHT KNEE PAIN Primary osteoarthritis of right knee COMPARISON: 08/10/2023. RESULT: No acute fracture or dislocation. Lateral compartment predominant osteoarthritis. Chondrocalcinosis. No joint effusion. IMPRESSION IMPRESSION: Lateral compartment predominant osteoarthritis. Business Analyst Intern: [facility] Transcribe Date/Time: Apr 29 2025 2:52P Dictated by : SYDNEY DEMARCO MD This examination was interpreted and the report reviewed and electronically signed by: SYDNEY DEMARCO MD on Apr 29 2025 2:52PM EST Supporting Subjective Information Below: Past Surgical History: [...] SPEC BR/WA IF PFRMD 07/23/2004 Sigmoidoscopy Medications: CURRENT MEDICATIONS[1] Allergies: Adhesive Tape (Rosins), Cantaloupe, Erythromycin, Gemtesa [...] anxiety) This note was partially generated using [employer] voice recognition system, and there may be some incorrect words, spellings, and punctuation that were not noted in checking the note before saving. Maggi Aldana PA-C [1] Current Outpatient Medications Medication Sig esomeprazole (NEXIUM) 40 mg capsule Take 1 capsule by mouth daily before breakfast. 1/2 hr before meal. famotidine (PEPCID) 20 mg tablet Take 1 tablet by mouth at bedtime as needed. midodrine (PROAMATINE) 2.5 mg tablet Take 2.5 mg by mouth two times a day. zoledronic acid (ZOMETA INTRAVENOUS) Inject intravenously. Every 6 months BENEFIBER, GUAR GUM, ORAL Take 2 teaspoonsful by mouth two times a day as needed. meclizine (ANTIVERT) 25 mg tab Take 1 tablet by mouth every 6 hours as needed (dizziness). Magnesium Glycinate 120mg 3 at night Stress, blood sugar, thyroid/hormones/adrenals/sleep/ energy/toxins/muscles/constipati on/asthma Work up to 3 capsules with meals at night - can cause loose stools metoprolol succinate ER (TOPROL XL) 25 mg 24 hr tablet Take half tablet in the morning and 1 tablet in the evening. APIXABAN (ELIQUIS ORAL) Take 5 mg by mouth two times a day. dofetilide (TIKOSYN) 250 mcg capsule Take 250 mcg by mouth twice daily. acetaminophen (TYLENOL) 325 mg tablet Take 650 mg by mouth every 6 hours as needed. calcium carbonate 600 mg-cholecalciferol 200 units 600 mg-5 mcg (200 unit) tab Take 1 tablet by mouth once daily. ergocalciferol(VITAMIN D 400 UNIT CAP) Take 1,000 Units by mouth once daily. fludrocortisone (FLORINEF) 0.1 mg tablet Taking 3 times a week tiZANidine (ZANAFLEX) 2 mg tablet Take 1 tablet by mouth every 6 hours as needed. (Patient not taking: Reported on 04/24/2025) No current facility-administered medications for this visit. AMB ROOMING INTAKE FLOWSHEET DATA Pain Pain Level: 5 Pain Location: Shoulder-Right Description: Aching, Sharp Duration Amount of Time: (ongoing) Frequency: Intermittent (with movement) Intervention/Comfort measure: Heat Patient had Euflexxa injection into right knee. LOT # [id number] EXP 09/03/2025 Dipika Merchant MA documented in this encounter [facility] 04-24-2025 Note HNO ID: [id number] Author: DIPIKA MERCHANT MA Service: ? Author Type: Supervisor Print Line Type: Progress Notes Filed: 05/01/2025 08:07 Note Text: AMB ROOMING INTAKE FLOWSHEET DATA Pain Pain Level: 5 Pain Location: Shoulder-Right Description: Aching, Sharp Duration Amount of Time: (ongoing) Frequency: Intermittent (with movement) Intervention/Comfort measure: Heat Patient had Euflexxa injection into right knee. LOT # [id number] EXP 09/03/2025 Dipika Merchant MA [facility] 04-17-2025 Note HNO ID: [id number] Author: TAYE WALTON RN Service: ? Author Type: Registered Nurse Type: Progress Notes Filed: 04/17/2025 16:12 Note Text: Patient states that she is voiding without difficulty. Bladder scan is zero. Instructed if she has any further difficulty urinating and office is open we can make arrangments to see her. If she is unable to void and office is closed. Go to ED. Verbalized understanding. Taye Walton RN [facility] 04-17-2025 History of Presen t illness Narrative Patient states that she is voiding without difficulty. Bladder scan is zero. Instructed if she has any further difficulty urinating and office is open we can make arrangments to see her. If she is unable to void and office is closed. Go to ED. Verbalized understanding. Taye Walton RN documented in this encounter [facility] 04-17-2025 History of Presen t illness Narrative Images from the original note were not included. [facility] [place] [facility] [place] [facility] NEW PATIENT UROLOGY VISIT 04/17/2025 7:51 AM PATIENT NAME: Rosana Maki DATE OF : 1940 TODAY'S DATE: 04/17/2025 Referring Provider: Rochelle Hackett [address] [place] [id number] Referring Note Reviewed: Yes Chief Complaint: urinary retention History of Present Illness: Ms. Maki is a 85 year old female who presents to the office regarding urinary retention. Tommie MESSINA, follows with Dr Sahu for Nephrology Patient had eye surgery on 04/10/25 She went to [facility] on 04/11/25 regarding urinary retention; cotto catheter was placed. Here today for TOV Also had catheter after ovarian surgery in [address] Prince for Urology regarding urinary incontinence, was told their office is temporarily closed because they are moving location. Plans to go back there for ongoing care. Review of Systems Constitutional: Negative for fever. Genitourinary: Positive for difficulty urinating. Negative for dysuria, flank pain, frequency, hematuria and urgency. See HPI Past Medical History: PAST MEDICAL HISTORY Diagnosis Date Abnormality of [...] atrial flutter Unspecified constipation Vitamin D deficiency Past Surgical History: PAST SURGICAL HISTORY Procedure [...] W/COLLJ SPEC BR/WA IF PFRMD 07/23/2004 Sigmoidoscopy Social History: Social History Tobacco Use Smoking status: Never Smokeless tobacco: Never Vaping Use Vaping status: Never Used Substance Use Topics Alcohol use: Yes Alcohol/week: 1.0 standard drink of alcohol Types: 1 Glasses of Wine (5oz) per week Comment: 1 glass per week Drug use: No Medications: Prior to Admission medications : Medication doxycycline hyclate (VIBRAMYCIN) 100 mg capsule, Sig Take 1 capsule by mouth two times a day for 14 days., Start Date 04/03/25, End Date 04/17/25, Taking? , Authorizing Provider Saray Bowser APRN.ALMOND BLANCHER Medication esomeprazole (NEXIUM) 40 mg capsule, Sig Take 1 capsule by mouth daily before breakfast. 1/2 hr before meal., Start Date 02/22/25, End Date , Taking? , Authorizing Provider Al Nichole APRN.ALMOND BLANCHER Medication famotidine (PEPCID) 20 mg tablet, Sig Take 1 tablet by mouth at bedtime as needed., Start Date 02/01/25, End Date , Taking? , Authorizing Provider Al Nichole APRN.ALMOND BLANCHER Medication fludrocortisone (FLORINEF) 0.1 mg tablet, Sig Taking 3 times a week, Start Date 11/10/24, End Date , Taking? , Authorizing Provider Rochelle Hackett MD Medication midodrine (PROAMATINE) 2.5 mg tablet, Sig Take 2.5 mg by mouth two times a day., Start Date , End Date , Taking? , Authorizing Provider Provider, [facility] Medication tiZANidine (ZANAFLEX) 2 mg tablet, Sig Take 1 tablet by mouth every 6 hours as needed., Start Date 11/02/24, End Date , Taking? , Authorizing Provider Al Nichole APRN.ALMOND BLANCHER Medication zoledronic acid (ZOMETA INTRAVENOUS), Sig Inject intravenously. Every 6 months, Start Date , End Date , Taking? , Authorizing Provider Provider, [facility] Medication BENEFIBER, GUAR GUM, ORAL, Sig Take 2 teaspoonsful by mouth two times a day as needed., Start Date , End Date , Taking? , Authorizing Provider Provider, [facility] Medication meclizine (ANTIVERT) 25 mg tab, Sig Take 1 tablet by mouth every 6 hours as needed (dizziness)., Start Date 05/08/23, End Date , Taking? , Authorizing Provider Al Nichole APRN.ALMOND BLANCHER Medication Magnesium Glycinate 120mg 3 at night Stress, blood sugar, thyroid/hormones/adrenals/sleep/ energy/toxins/muscles/constipati on/asthma, Sig Work up to 3 capsules with meals at night - can cause loose stools, Start Date 03/21/21, End Date , Taking? , Authorizing Provider Pamella Colby APRN.ALMOND BLANCHER Medication metoprolol succinate ER (TOPROL XL) 25 mg 24 hr tablet, Sig Take half tablet in the morning and 1 tablet in the evening., Start Date 01/19/20, End Date , Taking? , Authorizing Provider Rochelle Hackett MD Medication APIXABAN (ELIQUIS ORAL), Sig Take 5 mg by mouth two times a day., Start Date , End Date , Taking? , Authorizing Provider Provider, [facility] Medication dofetilide (TIKOSYN) 250 mcg capsule, Sig Take 250 mcg by mouth twice daily., Start Date , End Date , Taking? , Authorizing Provider Provider, [facility] Medication acetaminophen (TYLENOL) 325 mg tablet, Sig Take 650 mg by mouth every 6 hours as needed., Start Date , End Date , Taking? , Authorizing Provider Provider, [facility] Medication calcium carbonate 600 mg-cholecalciferol 200 units 600 mg-5 mcg (200 unit) tab, Sig Take 1 tablet by mouth once daily., Start Date 05/24/12, End Date , Taking? , Authorizing Provider Ron Wong MD Medication ergocalciferol(VITAMIN D 400 UNIT CAP), Sig Take 1,000 Units by mouth once daily. , Start Date 10/07/21, End Date , Taking? , Authorizing Provider Carlos Sheth MD ALLERGIES Allergen Reactions Adhesive Tape (Selena* Rash Cantaloupe Erythromycin GI Upset Gemtesa [Vibegron] Diarrhea Grass Pollen Mold Penicillins Rash, Swelling Pollen Prevacid [Lansopraz* Diarrhea All PPIs tried have given her diarrhea. Sulfa (Sulfonamide * Pt uncertain if Sulfa allergy is accurate or not. Problem List Reviewed: Yes Vitals: BP 151/82 Pulse 69 Ht 170.2 cm (5' 7) BMI 19.20 kg/m Recent Labs: Creatinine Date Value Ref Range Status 03/06/2025 0.79 0.58 - 0.96 mg/dL Final No results found for: PSA Color (no units) Date Value 11/02/2024 Dark Yellow 06/26/2016 Yellow Clarity (no units) Date Value 11/02/2024 Cloudy 06/26/2016 Clear Glucose, Urine Date Value 11/02/2024 Negative 06/28/2016 neg mg/dL Bilirubin, Urine (no units) Date Value 11/02/2024 Negative 06/28/2016 neg Ketones, Urine (no units) Date Value 11/02/2024 Trace 06/28/2016 neg Specific [place], Ur (no units) Date Value 11/02/2024 1.029 06/28/2016 1.005 Hemoglobin/Blood,Ur (no units) Date Value 11/02/2024 2+ 06/28/2016 large pH, Urine (no units) Date Value 11/02/2024 5.5 06/28/2016 5.0 Protein, Urine Date Value 11/02/2024 2+ 06/28/2016 neg mg/dL Urobilinogen (no units) Date Value 11/02/2024 0.2 EU/dL 06/26/2016 Normal Nitrites (no units) Date Value 11/02/2024 Positive 06/28/2016 neg Leukest (no units) Date Value 06/26/2016 3+ Leuk Esterase (no units) Date Value 11/02/2024 2+ 24HR Urine Studies: No results for input(s): LUPH, LUCAL, LUCIT, LUOXA, LUURIC, LUVOL, LSCAO, LSCAP, LSURIC, LUCL, LASHELL, JESSICA, LUUREA, LUAM, LUMAG, LUPHOS, LUPCR, LUCREA, LUCRKBW, LUCAKBW, LUCACREA, LUCREACL, LWK, LUSUL in the last 64110 hours. Physical Exam Vitals and nursing note reviewed. Constitutional: General: She is not in acute distress. Appearance: Normal appearance. She is not ill-appearing or toxic-appearing. Comments: Patient in NAD, speaking in full sentences, and breathing is not labored HENT: Head: Normocephalic and atraumatic. Pulmonary: Effort: Pulmonary effort is normal. Skin: General: Skin is warm and dry. Coloration: Skin is not jaundiced or pale. Neurological: Mental Status: She is alert and oriented to person, place, and time. Cotto catheter removed by deflating balloon of 10mL sterile water and withdrawing catheter. Patient tolerated well. AD Assessment and Plan: 1. Urinary retention - ICD9: 788.20, ICD10: R33.9 (primary diagnosis) 2. Encounter for Cotto catheter removal - ICD9: V53.6, ICD10: Z46.6 Patient is seen today regarding urinary incontinence, here for TOV. She usually sees Dr Prince for urologic care but was told there office is temporarily closed while they are moving locations. He plans to go back there for ongoing care. Patient advised to drink plenty of water today. Has nurse visit this afternoon for PVR check. Melissa Mayorga APRN.[facility] Consultation requested by Rochelle Rice [facility] [id number] for an opinion regarding Rosana Maki patient and my final recommendations will be communicated back to the requesting physician by way of shared Medical record or letter via US mail. Recording using [employer] software for draft documentation of the visit was discussed with the patient/authorized cash applications representative; all questions welcomed and answered. Patient/authorized cash applications representative agreed to proceed documented in this encounter [facility] 04-17-2025 Note HNO ID: [id number] Author: MELISSA MAYORGA APRN.CNP Service: ? Author Type: Nurse Practitioner Type: Progress Notes Filed: 04/17/2025 10:44 Note Text: [facility] [place] [facility] [place] [facility] [place] [facility] NEW PATIENT UROLOGY VISIT 04/17/2025 7:51 AM PATIENT NAME: Rosana Maki DATE OF : 1940 TODAY'S DATE: 04/17/2025 Referring Provider: Rochelle Rice [facility] [id number] Referring Note Reviewed: Yes Chief Complaint: urinary retention History of Present Illness: Ms. Maki is a 85 year old female who presents to the office regarding urinary retention. Tommie MESSINA, follows with Dr Sahu for Nephrology Patient had eye surgery on 04/10/25 She went to [facility] [facility] on 04/11/25 regarding urinary retention; cotto catheter was placed. Here today for TOV Also had catheter after ovarian surgery in [address] Prince for Urology regarding urinary incontinence, was told their office is temporarily closed because they are moving location. Plans to go back there for ongoing care. Review of Systems Constitutional: Negative for fever. Genitourinary: Positive for difficulty urinating. Negative for dysuria, flank pain, frequency, hematuria and urgency. See HPI Past Medical History: PAST MEDICAL HISTORY Diagnosis Date Abnormality of [...] atrial flutter Unspecified constipation Vitamin D deficiency Past Surgical History: PAST SURGICAL HISTORY Procedure [...] W/COLLJ SPEC BR/WA IF PFRMD 07/23/2004 Sigmoidoscopy Social History: Social History Tobacco Use Smoking status: Never Smokeless tobacco: Never Vaping Use Vaping status: Never Used Substance Use Topics Alcohol use: Yes Alcohol/week: 1.0 standard drink of alcohol Types: 1 Glasses of Wine (5oz) per week Comment: 1 glass per week Drug use: No Medications: Prior to Admission medications : Medication doxycycline hyclate (VIBRAMYCIN) 100 mg capsule, Sig Take 1 capsule by mouth two times a day for 14 days., Start Date 04/03/25, End Date 04/17/25, Taking? , Authorizing Provider Saray Bowser APRN.[facility] Medication esomeprazole (NEXIUM) 40 mg capsule, Sig Take 1 capsule by mouth daily before breakfast. 1/2 hr before meal., Start Date 02/22/25, End Date , Taking? , Authorizing Provider Al Nichole APRN.[facility] Medication famotidine (PEPCID) 20 mg tablet, Sig Take 1 tablet by mouth at bedtime as needed., Start Date 02/01/25, End Date , Taking? , Authorizing Provider Al Nichole APRN.[facility] BLANCHER Medication fludrocortisone (FLORINEF) 0.1 mg tablet, Sig Taking 3 times a week, Start Date 11/10/24, End Date , Taking? , Authorizing Provider Rochelle Hackett MD Medication midodrine (PROAMATINE) 2.5 mg tablet, Sig Take 2.5 mg by mouth two times a day., Start Date , End Date , Taking? , Authorizing Provider Pro (more content not included)... [facility] 04-12-2025 Telephone encounter Note Order faxed as requested. [facility] 04-12-2025 Miscellaneous Notes Order faxed as requested. Orders placed as requested Regards, Rochelle Hackett MD Pt called in and reports she was I the ER last night following eye surgery. She states they told her the anesthesia caused vomiting and urinary retention. The Pt states they placed a cotto catheter. They told her to have the cotto removed in a few days, because the retention should be cleared up. Pt states she sees Dr Prince, but she tried calling their office and they are still shut down for their move to [facility]. I told her our PCPs didn't remove cotto caths. She was asking if provider would be able to place a consult for Urology. Please call and advise. Amaya Blankenship RN documented in this encounter [facility] 04-12-2025 Telephone encounter Note Orders placed as requested Regards, Rochelle Hackett MD [facility] 04-12-2025 Telephone encounter Note Pt called in and reports she was I the ER last night following eye surgery. She states they told her the anesthesia caused vomiting and urinary retention. The Pt states they placed a cotto catheter. They told her to have the cotto removed in a few days, because the retention should be cleared up. Pt states she sees Dr Prince, but she tried calling their office and they are still shut down for their move to [facility]. I told her our PCPs didn't remove cotto caths. She was asking if provider would be able to place a consult for Urology. Please call and advise. Amaya Blankenship RN [facility] 04-03-2025 Note HNO ID: [id number] Author: SARAY BOWSER APRN.[facility]ANCHER Service: ? Author Type: Nurse Practitioner Type: Progress Notes Filed: 04/03/2025 19:40 Note Text: [facility] Rosana Maki is a 85 year old female. Patient presents with: Insect Bite: 4-5 ticks in groin area x noon today HPI Tick Removal: - Discovered ticks in the groin area approximately one hour ago. - Exposure occurred around 12:00 today while walking in the fine with tall grass and trees. - Ticks have burrowed into the skin; patient believes they are deer ticks. - Denies SOB, chest pain, fever, nausea, emesis, or diarrhea. Allergies: - Adhesive tape, chamomile, erythromycin, grass pollen, mold, penicillin, pollen, pravastatin, sulfa. Medications: - Tylenol, Eliquis, Benefiber, calcium, Tikosyn, vitamin D, Nexium, Pepcid, Florinef, magnesium, meclizine, Toprol, midodrine, Zanaflex, zoledronic acid. - Discontinued Mucinex after resolution of bronchitis. - Discontinued lidocaine for back pain. Review of Systems Constitutional: (-) fever Cardiovascular: (-) chest pain Respiratory: (-) shortness of breath Skin: (+) tick bites Objective BP 102/60 Pulse 62 Temp 36.1 ?C (96.9 ?F) Resp 16 Wt 55.6 kg (122 lb 9.2 oz) SpO2 100% BMI 19.20 kg/m? Physical Exam Vitals reviewed. Constitutional: General: She is not in acute distress. Appearance: Normal appearance. She is not ill-appearing or toxic-appearing. Cardiovascular: Rate and Rhythm: Normal rate and regular rhythm. Pulses: Normal pulses. Heart sounds: Normal heart sounds. Pulmonary: Effort: Pulmonary effort is normal. Breath sounds: Normal breath sounds. Abdominal: General: Bowel sounds are normal. Palpations: Abdomen is soft. Skin: General: Skin is warm and dry. Capillary Refill: Capillary refill takes less than 2 seconds. Comments: Area of pinpoint fine black dots on skin of pubic area, removed numerous elevated skin appearing to be scabs from skin irritation, surrounding skin blanches easily. Some areas are pinpoint and dark, yet unable to be removed/under the skin, yet do not appear to be infestation, yet rather a darkened area of her skin. Neurological: Mental Status: She is alert and oriented to person, place, and time. General: No acute distress. Skin: Ticks embedded in the groin area. ASSESSMENT/PLAN: 1. Tick bite of pelvic region, initial encounter - ICD9: 911.4, E906.4, ICD10: S30.860A, W57.XXXA - DOXYCYCLINE HYCLATE 100 MG CAPSULE Will treat for concern of skin infection while covering for Tick bite prevention as requested by Rosana with a plan to follow up with her PC next week for further assessment and plan. [employer] AI generated recording and notation utilized after patient/guardian approved Patient given educational materials - see patient instructions. Discussed use, benefit, and side effects of prescribed medications. All patient questions answered. Pt voiced understanding and agrees with treatment plan. Patient advised to follow up with PCP within one week, or sooner if symptoms worsen or persist. If symptoms become severe- GO TO ED. Patient agreeable with treatment plan. Saray Bowser APRN.[facility] 04-03-2025 History of Presen t illness Narrative Images from the original note were not included. [facility] Subjective Rosana Maki is a 85 year old female. Patient presents with: Insect Bite: 4-5 ticks in groin area x noon today HPI Tick Removal: - Discovered ticks in the groin area approximately one hour ago. - Exposure occurred around 12:00 today while walking in the fine with tall grass and trees. - Ticks have burrowed into the skin; patient believes they are deer ticks. - Denies SOB, chest pain, fever, nausea, emesis, or diarrhea. Allergies: - Adhesive tape, chamomile, erythromycin, grass pollen, mold, penicillin, pollen, pravastatin, sulfa. Medications: - Tylenol, Eliquis, Benefiber, calcium, Tikosyn, vitamin D, Nexium, Pepcid, Florinef, magnesium, meclizine, Toprol, midodrine, Zanaflex, zoledronic acid. - Discontinued Mucinex after resolution of bronchitis. - Discontinued lidocaine for back pain. Review of Systems Constitutional: (-) fever Cardiovascular: (-) chest pain Respiratory: (-) shortness of breath Skin: (+) tick bites Objective BP 102/60 Pulse 62 Temp 36.1 C (96.9 F) Resp 16 Wt 55.6 kg (122 lb 9.2 oz) SpO2 100% BMI 19.20 kg/m Physical Exam Vitals reviewed. Constitutional: General: She is not in acute distress. Appearance: Normal appearance. She is not ill-appearing or toxic-appearing. Cardiovascular: Rate and Rhythm: Normal rate and regular rhythm. Pulses: Normal pulses. Heart sounds: Normal heart sounds. Pulmonary: Effort: Pulmonary effort is normal. Breath sounds: Normal breath sounds. Abdominal: General: Bowel sounds are normal. Palpations: Abdomen is soft. Skin: General: Skin is warm and dry. Capillary Refill: Capillary refill takes less than 2 seconds. Comments: Area of pinpoint fine black dots on skin of pubic area, removed numerous elevated skin appearing to be scabs from skin irritation, surrounding skin blanches easily. Some areas are pinpoint and dark, yet unable to be removed/under the skin, yet do not appear to be infestation, yet rather a darkened area of her skin. Neurological: Mental Status: She is alert and oriented to person, place, and time. General: No acute distress. Skin: Ticks embedded in the groin area. ASSESSMENT/PLAN: 1. Tick bite of pelvic region, initial encounter - ICD9: 911.4, E906.4, ICD10: S30.860A, W57.XXXA - DOXYCYCLINE HYCLATE 100 MG CAPSULE Will treat for concern of skin infection while covering for Tick bite prevention as requested by Rosana with a plan to follow up with her PC next week for further assessment and plan. Ambience AI generated recording and notation utilized after patient/guardian approved Patient given educational materials - see patient instructions. Discussed use, benefit, and side effects of prescribed medications. All patient questions answered. Pt voiced understanding and agrees with treatment plan. Patient advised to follow up with PCP within one week, or sooner if symptoms worsen or persist. If symptoms become severe- GO TO ED. Patient agreeable with treatment plan. Saray Bowser APRN.CNP documented in this encounter [facility] 04-03-2025 Instructions Saray Bowser APRN.CNP - 04/03/2025 7:11 PM EDT Avoiding Tick Bites How can I avoid tick bites? If you are planning an outdoor activity, especially those in a heavily wooded area, it is important to follow a few simple precautions to protect yourself from tick bites. Wear long sleeved, light-colored clothing, with tightly woven fabric. This gives ticks less area to target and allows you to see ticks on your clothing. When traveling through the fine or grassy [place], stay near the center of the trails. At home, make sure that you keep your lawn mowed and bushes and trees trimmed as short as possible. If you choose to apply tick repellents, such as those containing DEET, try to avoid spraying them directly to your bare skin. (high concentrations of DEET may have harmful effects on the nervous system.) Apply the spray to your clothing, socks, shoes, tents and backpacks. When returning from the outdoors, check for ticks. Be especially observant of hair, body folds, ears, underarms and the back. Check your clothes and gear for ticks and wash these items immediately. What if I have been bitten by a tick? If you discover a tick, remove it immediately. The longer the tick feeds, the greater chance that it can transmit its bacteria to you. The easiest removal method is to use a pair of tweezers, grasp the tick as close to your skin as possible, and gently pull the tick off. Then, thoroughly wash your hands and the bite area with rubbing alcohol to prevent transmission to other areas of your body. When should I call the doctor? It is best to wait and see whether you develop any signs or symptoms. If a large red lesa forms around the tick bite or if you develop fever, flu-like symptoms, rash, or more severe illness, contact your doctor right away. Your doctor can determine whether these symptoms might be caused by a tick-borne disease, and whether antibiotics will be needed. Is there a vaccine for preventing tick-borne disease in humans? Currently there are vaccines being tested, but there are no guarantees that they will be effective. The best option is to take precautions so that tick bites do not occur in the first place. Early Signs and Symptoms (3 to 30 days after tick bite) Fever, chills, headache, fatigue, muscle and joint aches, and swollen lymph nodes Erythema migrans (EM) rash: Occurs in approximately 70 to 80 percent of infected persons Begins at the site of a tick bite after a delay of 3 to 30 days (average is about 7 days) Expands gradually over a period of days reaching up to 12 inches or more (30 cm) across May feel warm to the touch but is rarely itchy or painful Sometimes clears as it enlarges, resulting in a target or bull's-eye appearance May appear on any area of the body Later Signs and Symptoms (days to months after tick bite) Severe headaches and neck stiffness Additional EM rashes on other areas of the body Arthritis with severe joint pain and swelling, particularly the knees and other large joints. Facial or Farr's palsy (loss of muscle tone or droop on one or both sides of the face) Intermittent pain in tendons, muscles, joints, and bones Heart palpitations or an irregular heart beat (Lyme carditis) Episodes of dizziness or shortness of breath Inflammation of the brain and spinal cord Nerve pain Shooting pains, numbness, or tingling in the hands or feet Problems with short-term memory documented in this encounter [facility] 04-03-2025 Telephone encounter Note Pt called in and reports she has 5-6 tiny ticks in her groin area. She states she thinks they are deer ticks because of their size. I let her know UC was open until 730 pm, and I called down to make sure this was something they could take care of Pt will be coming in. Amaya Blankenship RN [facility] 04-03-2025 Miscellaneous Notes Pt called in and reports she has 5-6 tiny ticks in her groin area. She states she thinks they are deer ticks because of their size. I let her know UC was open until 730 pm, and I called down to make sure this was something they could take care of Pt will be coming in. Amaya Blankenship RN documented in this encounter [facility] 03-06-2025 Note HNO ID: [id number] Author: ROCHELLE HACKETT MD Service: ? 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 Rosana was admitted to [facility] on 02/23/2025 for intractable nausea and emesis. Her baseline sodium levels are typically 131-133 mEq/L, but during this episode, her sodium level dropped to 123 mEq/L. She reports feeling unwell for a few days prior to the hospitalization, suspecting a cold, and then began experiencing emesis, prompting her to take her to the emergency department. During her hospital stay, she was diagnosed with parainfluenza type 3, which she believes precipitated her symptoms. She also experienced a significant episode of atrial fibrillation during the night. Since discharge, she has been experiencing bronchitis with persistent coughing, which she attributes to the parainfluenza infection. She reports a decrease in energy levels but notes gradual improvement in strength and activity. She had a fever for several days during her illness. She was advised to take 4,000-5,000 mg of sodium daily, which has recently been reduced to a more normal amount. She is awaiting a follow-up appointment with her range master, Dr. Sahu. She has been focusing on increasing her protein intake as advised by a dietitian and is limiting her fluid intake to about 48 ounces per day to manage her sodium levels. She inquires about the continuation of Mucinex for her cough and requests a recommendation for a gentle laxative to address constipation following her hospital visit. She denies current fever and notes that her body temperature tends to run low. Social History Tobacco Use Smoking status: Never Smokeless tobacco: Never Vaping Use Vaping status: Never Used Substance Use Topics Alcohol use: Yes Alcohol/week: 1.0 standard drink of alcohol Types: 1 Glasses of Wine (5oz) per week Comment: 1 glass per week Drug use: No Past medical history, appointments, medications, allergies reviewed. Pertinent Lab/Diagnostic Studies are reviewed and discussed today Current Outpatient Medications: esomeprazole (NEXIUM) 40 mg capsule lidocaine (LIDODERM) 5 % famotidine (PEPCID) 20 mg tablet fludrocortisone (FLORINEF) 0.1 mg tablet midodrine (PROAMATINE) 2.5 mg tablet zoledronic acid (ZOMETA INTRAVENOUS) BENEFIBER, GUAR GUM, ORAL meclizine (ANTIVERT) 25 mg tab Magnesium Glycinate 120mg 3 at night Stress, blood sugar, thyroid/hormones/adrenals/sleep/ energy/toxins/muscles/constipati on/asthma metoprolol succinate ER (TOPROL XL) 25 mg 24 hr tablet APIXABAN (ELIQUIS ORAL) dofetilide (TIKOSYN) 250 mcg capsule acetaminophen (TYLENOL) 325 mg tablet calcium carbonate 600 mg-cholecalciferol 200 units 600 mg-5 mcg (200 unit) tab ergocalciferol(VITAMIN D 400 UNIT CAP) guaiFENesin (MUCINEX) 600 mg 12 hr tablet tiZANidine (ZANAFLEX) 2 mg tablet Health Maintenance Medicare Annual Wellness Visit Bone Density Screening Advance Directive Discussion Covid-19 Vaccine( season)@ Review Of Systems Constitutional: (+) fatigue, (-) fever Respiratory: (+) cough, (+) sputum production, (-) thick sputum Gastrointestinal: (+) constipation Physical Exam BP 154/88 Pulse 64 Temp (!) 35.7 ?C (96.3 ?F) (Oral) Resp 18 Wt 54 kg (119 lb) SpO2 99% BMI 18.64 kg/m? GENERAL: NAD, alert and oriented. SKIN: Unremarkable, no rash or skin lesions. HEAD: Normocephalic. EYES: PERRLA, EOMI, conjunctiva clear. LUNGS: Clear to auscultation bilaterally, no wheezes/rhonchi/rales. HEART: Regular rate and rhythm, no murmurs. No ectopy. EXTREMITIES: Normal, no deformities, no skin discoloration, no edema. NEURO: Awake, alert and oriented x3, cranial nerves II-XII grossly intact, normal gait, no involuntary motions. Labs: (02/23/2025) Serum sodium: 123 mmol/L - Lipid panel: Within normal limits - Serum sodium: 132 mmol/L - Parainfluenza type 3 test: Positive Assessment and Plan 1. Hospital discharge follow-up (Z09) Hyponatremia (E87.1) 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) (E22.2) Recent hospitalization on 02/23/2025 for severe hyponatremia with sodium levels as low as 123 mEq/L, likely precipitated by a parainfluenza type 3 infection. Chronic hyponatremia secondary to SIADH with baseline sodium levels typically between 131-133 mEq/L. Patient has been managing sodium intake as per dietary recommendations and is scheduled for follow-up with range master Dr. Sahu. - Ordered BMP to monitor sodium levels. - Advised p (more content not included)... 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 Rosana was admitted to [facility] on 02/23/2025 for intractable nausea and emesis. Her baseline sodium levels are typically 131-133 mEq/L, but during this episode, her sodium level dropped to 123 mEq/L. She reports feeling unwell for a few days prior to the hospitalization, suspecting a cold, and then began experiencing emesis, prompting her to take her to the emergency department. During her hospital stay, she was diagnosed with parainfluenza type 3, which she believes precipitated her symptoms. She also experienced a significant episode of atrial fibrillation during the night. Since discharge, she has been experiencing bronchitis with persistent coughing, which she attributes to the parainfluenza infection. She reports a decrease in energy levels but notes gradual improvement in strength and activity. She had a fever for several days during her illness. She was advised to take 4,000-5,000 mg of sodium daily, which has recently been reduced to a more normal amount. She is awaiting a follow-up appointment with her range master, Dr. Sahu. She has been focusing on increasing her protein intake as advised by a dietitian and is limiting her fluid intake to about 48 ounces per day to manage her sodium levels. She inquires about the continuation of Mucinex for her cough and requests a recommendation for a gentle laxative to address constipation following her hospital visit. She denies current fever and notes that her body temperature tends to run low. Social History Tobacco Use Smoking status: Never Smokeless tobacco: Never Vaping Use Vaping status: Never Used Substance Use Topics Alcohol use: Yes Alcohol/week: 1.0 standard drink of alcohol Types: 1 Glasses of Wine (5oz) per week Comment: 1 glass per week Drug use: No Past medical history, appointments, medications, allergies reviewed. Pertinent Lab/Diagnostic Studies are reviewed and discussed today Current Outpatient Medications: esomeprazole (NEXIUM) 40 mg capsule lidocaine (LIDODERM) 5 % famotidine (PEPCID) 20 mg tablet fludrocortisone (FLORINEF) 0.1 mg tablet midodrine (PROAMATINE) 2.5 mg tablet zoledronic acid (ZOMETA INTRAVENOUS) BENEFIBER, GUAR GUM, ORAL meclizine (ANTIVERT) 25 mg tab Magnesium Glycinate 120mg 3 at night Stress, blood sugar, thyroid/hormones/adrenals/sleep/ energy/toxins/muscles/constipati on/asthma metoprolol succinate ER (TOPROL XL) 25 mg 24 hr tablet APIXABAN (ELIQUIS ORAL) dofetilide (TIKOSYN) 250 mcg capsule acetaminophen (TYLENOL) 325 mg tablet calcium carbonate 600 mg-cholecalciferol 200 units 600 mg-5 mcg (200 unit) tab ergocalciferol(VITAMIN D 400 UNIT CAP) guaiFENesin (MUCINEX) 600 mg 12 hr tablet tiZANidine (ZANAFLEX) 2 mg tablet Health Maintenance Medicare Annual Wellness Visit Bone Density Screening Advance Directive Discussion Covid-19 Vaccine( season)@ Review Of Systems Constitutional: (+) fatigue, (-) fever Respiratory: (+) cough, (+) sputum production, (-) thick sputum Gastrointestinal: (+) constipation Physical Exam BP 154/88 Pulse 64 Temp (!) 35.7 C (96.3 F) (Oral) Resp 18 Wt 54 kg (119 lb) SpO2 99% BMI 18.64 kg/m GENERAL: NAD, alert and oriented. SKIN: Unremarkable, no rash or skin lesions. HEAD: Normocephalic. EYES: PERRLA, EOMI, conjunctiva clear. LUNGS: Clear to auscultation bilaterally, no wheezes/rhonchi/rales. HEART: Regular rate and rhythm, no murmurs. No ectopy. EXTREMITIES: Normal, no deformities, no skin discoloration, no edema. NEURO: Awake, alert and oriented x3, cranial nerves II-XII grossly intact, normal gait, no involuntary motions. Labs: (02/23/2025) Serum sodium: 123 mmol/L - Lipid panel: Within normal limits - Serum sodium: 132 mmol/L - Parainfluenza type 3 test: Positive Assessment and Plan 1. Hospital discharge follow-up (Z09) Hyponatremia (E87.1) SIADH (syndrome of inappropriate ADH production) ([facility]) (E22.2) Recent hospitalization on 02/23/2025 for severe hyponatremia with sodium levels as low as 123 mEq/L, likely precipitated by a parainfluenza type 3 infection. Chronic hyponatremia secondary to SIADH with baseline sodium levels typically between 131-133 mEq/L. Patient has been managing sodium intake as per dietary recommendations and is scheduled for follow-up with range master Dr. Sahu. - Ordered BMP to monitor sodium levels. - Advised patient to follow up with Dr. Sahu within 2-3 days if not contacted by the office. - Continue dietary modifications as per dietitian's recommendations, including protein intake and fluid restriction to 48 ounces per day. 2. Constipation, unspecified constipation type (K59.00) Post-hospitalization constipation. - Recommended Miralax 17 grams once daily, available [id number]. 3. Acute cough (R05.1) Persistent cough with phlegm following parainfluenza type 3 infection and subsequent bronchitis. Lung auscultation reveals clear breath sounds. - Prescribed Mucinex with 60 tablets and 1 refill to manage phlegm. - Advised patient that cough should improve over the next week. 4. Paroxysmal atrial fibrillation (HCC) (I48.0) Experienced an episode of atrial fibrillation during recent hospitalization. Voice recognition software was used to compose this office note. Please excuse any unintended typographical errors. Recording using [employer] software for draft documentation of the visit was discussed with the patient/authorized cash applications representative; all questions welcomed and answered. Patient/authorized cash applications representative agreed to proceed Rochelle Hackett MD documented in this encounter [facility] 02-27-2025 Note [facility] 02-22-2025 Telephone encounter Note Pt reports she [...] daily before breakfast. 1/2 hr before meal. Amaya Blankenship RN February 22, 2025 1:36 PM [facility] 02-22-2025 Miscellaneous Notes Pt reports she [...] daily before breakfast. 1/2 hr before meal. Amaya Blankenship RN February 22, 2025 1:36 PM documented in this encounter [facility] 02-10-2025 Instructions Rochelle Hackett MD - 02/10/2025 9:21 AM EDT We discussed your overall health and recent improvements: - You reported feeling much better overall, with increased energy and reduced back pain. You attribute these improvements to physical therapy, increased activity, and seasonal changes. - You have been engaging in chair yoga at the [facility] and plan to resume independent exercises at [facility] starting next week. We discussed your [...] in your health. documented in this encounter [facility] 02-10-2025 Note HNO ID: [id number] Author: ROCHELLE HACKETT MD Service: ? Author [...] attributes to physical therapy at [facility] and increased physical activity. She has been more active, engaging in chair yoga at the [facility] and walking on her property. She also notes an improvement in her energy levels and attributes this to both physical activity and the seasonal change, as she experiences worsening symptoms of seasonal affective disorder during the darker months. Rosana has a history of insomnia and has had two appointments with a sleep physician at [facility]. 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 and plans to discuss her [...] thyroid, no carotid (more content not included)... [facility] 02-10-2025 History of Presen t illness Narrative Reason for Visit Follow up HPI Rosana [...] attributes to physical therapy at [facility] and increased physical activity. She has been more active, engaging in chair yoga at the [facility] and walking on her property. She also notes an improvement in her energy levels and attributes this to both physical activity and the seasonal change, as she experiences worsening symptoms of seasonal affective disorder during the darker months. Rosana has a history of insomnia and has had two appointments with a sleep physician at [facility]. 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 and plans to discuss her [...] Under management by a sleep physician at [facility]. Recent sleep study showed frequent arousals; no evidence of sleep apnea. [facility] keeping [facility] sleep diary, and working on [...] 4. SIADH (syndrome of inappropriate ADH production) ([facility]) (E22.2) Last sodium level was 130 mEq/L. Managed with sodium tablets as needed. No recent emergency room visits for hyponatremia-related nausea and vomiting. - Ordered BMP to monitor sodium levels. - Continue sodium tablets as needed. - Follow-up with Dr. Sahu as scheduled. 5. Protein-calorie malnutrition, unspecified severity ([facility]) (E46) Improved appetite and increased food intake [...] excuse any unintended typographical errors. Recording using [employer] software for draft documentation of the visit was discussed with the patient/authorized cash applications representative; all questions welcomed and answered. Patient/authorized cash applications representative agreed to proceed Rochelle Hackett MD documented in this encounter [facility] 12-27-2024 Note HNO ID: [id number] Author: ANAYELI PETTIT RN Service: ? Author [...] - Bi-Weekly Outreach (Recurring) Disposition Based on content coordinator, the following disposition is advised: No action needed Anayeli Pettit RN December 27, 2024 2:09 PM [facility] 12-27-2024 History of Presen t illness Narrative Images from the original note were not included. CD [facility] Telephonic Outreach Provider Action/FYI Patient [...] - Bi-Weekly Outreach (Recurring) Disposition Based on content coordinator, the following disposition is advised: No action needed Anayeli Pettit RN December 27, 2024 2:09 PM documented in this encounter [facility] 12-27-2024 Note Patient Outreach ([facility] ROSANA MAKI ([id number]) 1940 F NFR Date Time Provider Department 12/27/24 [facility] your visit today, we recorded the [...] - Bi-Weekly Outreach (Recurring) Disposition Based on content coordinator, the following disposition is advised: No action [...] Asymptomatic Postmenopausal Status (Age-Related* 10/28/2012 Osteoarth NOS-L/Leg [FAE0803] Palpitations [R00.2] 02/23/2009 Osteoporosis [M81.0] 07/04/2009 03/13/2012 Insomnia [G47.00] 02/11/2011 Hyponatremia [E87.1] 02/11/2011 Chronic fatigue disorder [G93.32] 02/11/2011 Paroxysmal atrial fibrillation (HCC) [I48.0] Mitral valve prolapse [I34.1] Closed fracture of lumbar vertebra (HCC) (more content not included)... [facility] 12-13-2024 Note HNO ID: [id number] Author: ANAYELI PETTIT RN Service: ? Author Type: Registered Nurse Type: Progress Notes Filed: 12/13/2024 13:26 Note Text: CD[facility] Telephonic Outreach Provider Action/FYI Patient identified by Name and Date of . Discussed care with patient. Still having pain from her fall in October. Did some physical therapy and now has MRI scheduled. Had follow up with ortho/spine at [place]. Gets fatigued. Encouraged to keep trying to [...] - Bi-Weekly Outreach (Recurring) Disposition Based on content coordinator, the following disposition is advised: No action needed Anayeli Pettit RN December 13, 2024 1:21 PM [facility] 12-13-2024 History of Presen t illness Narrative Images from the original note were not included. [facility] Telephonic Outreach Provider Action/FYI Patient identified by Name and Date of . Discussed care with patient. Still having pain from her fall in October. Did some physical therapy and now has MRI scheduled. Had follow up with ortho/spine at [place]. Gets fatigued. Encouraged to keep trying to [...] - Bi-Weekly Outreach (Recurring) Disposition Based on content coordinator, the following disposition is advised: No action needed Anayeli Pettit RN December 13, 2024 1:21 PM documented in this encounter [facility] 12-13-2024 Note Patient Outreach ([facility] ROSANA MAKI ([id number]) 1940 F NFR Date Time Provider Department 12/13/24 ANAYELI PETTIT [facility] During your visit today, we recorded the following information about you: Anayeli Pettit RN 12/13/2024 1:26 PM Signed [facility] Telephonic Outreach Provider Action/FYI Patient identified by Name and Date of . Discussed care with patient. Still having pain from her fall in October. Did some physical therapy and now has MRI scheduled. Had follow up with ortho/spine at [place]. Gets fatigued. Encouraged to keep trying to [...] to go/how to contact, etc.) 11/14/2024 10/17/2024 nAayeli Pettit RN Complete Has a therapist outside [facility] Intake assessments completed: ADLs, Fall Risk, SDOH 11/14/2024 10/17/2024 Anayeli Pettit RN Complete Assessments CD Assessment Symptoms: Are you experiencing any new or worsening symptoms that you need to talk about today?: No ADLs No documentation this encounter Fall Risk No documentation this encounter SDOH No documentation this encounter Interventions The following were addressed during this visit: - Bi-Weekly Outreach (Recurring) Disposition Based on content coordinator, the following disposition is advised: No action [...] Asymptomatic Postmenopausal Status (Age-Related* 10/28/2012 Osteoarth NOS-L/Leg [[id number]] Palpitations [R00.2] 02/23/2009 Osteoporosis [M81.0] 07/04/2009 03/13/2012 Insomnia [G47.00] 02/11/2011 Hyponatremia [E87.1] 02/11/2011 Chronic fatigue disorder [G93.32] 02/11/2011 Paroxysmal atrial fibrillation (HCC) [I48.0] Mitral valve prolapse [I34.1] Closed fracture of lumbar vertebra (HCC) [S32.0*10/18/2012 Dizziness and gi (more content not included)... [facility] 12-09-2024 Note HNO ID: [id number] Author: NANCY RANGEL MA Service: ? Author Type: Supervisor Print Line Type: Progress Notes Filed: 12/09/2024 13:06 Note [...] orders: Medicare Annual Wellness Visit 02/10/2025 in [facility] with ROCHELLE HACKETT - 3 month follow up 05/11/2025 in [facility] with AL NICHOLE - Medicare wellness visit Navigation Signature: Nancy Rangel MA December 09, 2024 1:06 PM [facility] 12-09-2024 History of Presen t illness [...] orders: Medicare [facility] Well[facility] month [facility] - Medicare wellness visit Navigation Signature: Nancy Rangel MA December 09, 2024 1:06 PM documented in this encounter [facility] 12-09-2024 Note Patient Outreach ([facility]) ROSANA MAKI ([id number]) 1940 F NFR Date Time Provider Department 12/09/24 NANCY RANGEL NETNAV During your visit today, we recorded the [...] orders: Medicare Annual Wellness [facility] - 3 month [facility] [place] - Medicare wellness visit Navigation Signature: Nancy [...] Visit: Population Health Navigation Outreach [3910] Cmt: Aco high risk attempt # 1 Prescriptions as [...] Asymptomatic Postmenopausal Status (Age-Related* 10/28/2012 Osteoarth NOS-L/Leg [[id number]] Palpitations [R00.2] 02/23/2009 Osteoporosis [M81.0] 07/04/2009 03/13/2012 [...] Encounter Status:Closed by NANCY COLON on 12/09/24 [facility] 11-29-2024 Note HNO ID: [id number] Author: ANAYELI PETTIT RN Service: ? Author Type: Registered Nurse Type: Progress Notes Filed: 11/29/2024 14:37 Note Text: CDM Care [facility] Telephonic Outreach [...] - Bi-Weekly Outreach (Recurring) Disposition Based on content coordinator, the following disposition is advised: No action needed Anayeli Pettit RN November 29, 2024 2:34 PM [facility] 11-29-2024 History of Presen t illness [...] - Bi-Weekly Outreach (Recurring) Disposition Based on content coordinator, the following disposition is advised: No action needed Anayeli Pettit RN November 29, 2024 2:34 PM documented in this encounter [facility] 11-29-2024 Note Patient Outreach ([facility] ROSANA MAKI ([id number]) 1940 F NFR Date Time Provider Department 11/29/24 ANAYELI PETTIT AMBM[facility]NAG During your visit today, we recorded the following information about you: Anayeli Pettit RN 11/29/2024 2:37 PM Signed CD Care [facility] Telephonic Outreach Provider Action/FYI Patient [...] - Bi-Weekly Outreach (Recurring) Disposition Based on content coordinator, the following disposition is advised: No action [...] Asymptomatic Postmenopausal Status (Age-Related* 10/28/2012 Osteoarth NOS-L/Leg [[id number]] Palpitations [R00.2] 02/23/2009 Osteoporosis [M81.0] 07/04/2009 03/13/2012 Insomnia [G47.00] 02/11/2011 Hyponatremia [E87.1] 02/11/2011 Chronic fatigue disorder [G93.32] 02/11/2011 Paroxysmal atrial fibrillation (HCC) [I48.0] Mitral valve prolapse [I34.1] Closed fracture of lumbar vertebra (HCC) [S32.0*10/18/2012 Dizziness and giddiness [R4 (more content not included)... [facility] 11-16-2024 Note HNO ID: [id number] Author: ANAYELI PETTIT RN Service: ? Author Type: Registered Nurse Type: Progress Notes Filed: 11/16/2024 12:08 Note Text: [facility] Care Path Telephonic Outreach Provider Action/FYI [...] goal addressed (add comment) 01/16/2025 11/16/2024 Anayeli Pettti RN Complete Improvement of back pain and [...] - Bi-Weekly Outreach (Recurring) Disposition Based on content coordinator, the following disposition is advised: No action needed Anayeli Pettit RN November 16, 2024 12:02 PM [facility] 11-16-2024 History of Presen t illness Narrative Images from the original note were not included. CD Care [facility] Telephonic Outreach Provider Action/FYI Patient [...] - Bi-Weekly Outreach (Recurring) Disposition Based on content coordinator, the following disposition is advised: No action needed Anayeli Pettit RN November 16, 2024 12:02 PM documented in this encounter [facility] 11-16-2024 Note Patient Outreach ([facility] ROSANA MAKI ([id number]) 1940 F NFR Date Time Provider Department 11/16/24 ANAYELI PETTITG During your visit today, we recorded the following information about you: Anayeli Pettit RN 11/16/2024 12:08 PM Signed CD[facility] Telephonic Outreach [...] - Bi-Weekly Outreach (Recurring) Disposition Based on content coordinator, the following disposition is advised: No action [...] Asymptomatic Postmenopausal Status (Age-Related* 10/28/2012 Osteoarth NOS-L/Leg [[id number]] Palpitations [R00.2] 02/23/2009 Osteoporosis [M81.0] 07/04/2009 03/13/2012 Insomnia [G47.00] 02/11/2011 Hyponatremia [E87.1] 02/11/2011 Chronic fatigue disorder [G93.32] 02/11/2011 Parox (more content not included)... [facility] 11-10-2024 Note HNO ID: [id number] Author: ?, ?, ? Service: ? Author Type: ? Type: Progress Notes Filed: 11/10/2024 11:19 Note Text: POPULATION HEALTH NAVIGATION OUTREACH Action/[facility] Support: Called pt to schedule an appt in Pain Management. Lvm for pt to call [phone] for scheduling. Any agent can assist. Reason for Outreach Care Gap/HCC or Scheduling Wellness Visits Care Gaps due: N/A Patient Contacted: Unable or unnecessary to reach patient: Left message [employer] message sent Navigation Signature: Jeffrey Armstrong November 10, 2024 11:19 AM [facility] 11-10-2024 History of Presen t illness Narrative POPULATION HEALTH NAVIGATION OUTREACH Action/[facility] Support: Called pt to schedule an appt in Pain Management. Lvm for pt to call [phone] for scheduling. Any agent can assist. Reason for Outreach Care Gap/HCC or Scheduling Wellness Visits Care Gaps due: N/A Patient Contacted: Unable or unnecessary to reach patient: Left message [employer] message sent Navigation Signature: Jeffrey Armstrong November 10, 2024 11:19 AM documented in this encounter [facility] 11-10-2024 Note Patient Outreach ([facility]) ROSANA MAKI ([id number]) 1940 F NFR Date Time Provider Department 11/10/24 NO PCP (HIST) SHABANA During your visit today, we recorded the following information about you: Jeffrey Armstrong 11/10/2024 11:19 AM Signed POPULATION HEALTH NAVIGATION OUTREACH Action/[facility] Support: Called pt to schedule an appt in Pain Management. [facility] for pt to call [phone] for scheduling. Any agent can assist. Reason for Outreach Care Gap/HCC or Scheduling Wellness Visits Care Gaps due: N/A Patient Contacted: Unable or unnecessary to reach patient: Left message [employer] message sent Navigation Signature: Jeffrey Armstrong November [...] Asymptomatic Postmenopausal Status (Age-Related* 10/28/2012 Osteoarth NOS-L/Leg [[id number]] Palpitations [R00.2] 02/23/2009 Osteoporosis [M81.0] 07/04/2009 03/13/2012 [...] Encounter Status:Closed by JEFFREY ARMSTRONG on 11/10/24 [facility] 11-08-2024 Telephone encounter Note Faxed physical therapy order and face sheet to [facility] patient request Teri Araiza LPN November 08, 2024 10:36 AM [facility] 11-08-2024 Miscellaneous Notes Faxed physical therapy order and face sheet to [facility] per patient request Teri Araiza LPN November 08, 2024 10:36 AM documented in this encounter [facility] 11-08-2024 History of Presen t illness [...] helps her. This was started by her supervisor drying and winding Dr. Cooley No problem-specific Assessment & Plan [...] Rochelle Hackett MD documented in this encounter [facility] 11-08-2024 Note HNO ID: [id number] Author: ROCHELLE HACKETT MD Service: ? Author [...] helps her. This was started by her supervisor drying and winding Dr. Cooley No problem-specific Assessment AND Plan [...] hr tablet APIXABA (more content not included)... [facility] 11-07-2024 Telephone encounter Note Referral faxed to Dr Mancilla [facility] 11-07-2024 Miscellaneous Notes Referral faxed to Dr Mancilla Patient calling in asking if her information and pain management referral can be faxed over to [facility]. Please review. Vida Urnea November 07, 2024 2:34 PM documented in this encounter [facility] 11-07-2024 Telephone encounter Note Patient calling in asking if her information and pain management referral can be faxed over to [facility]. Please review. Vida Urena November 07, 2024 2:34 PM [facility] 11-07-2024 Telephone encounter Note Spoke with pt and information listed below given. Pt verbalizes understanding. Pt has questions and will talk to provider tomorrow 11-08-[address] Devi Lowe LPN [facility] 11-07-2024 Miscellaneous Notes Spoke with pt [...] with her pain. Thank you Al Nichole APRN.ALMOND BLANCHER documented in this encounter [facility] 11-07-2024 Telephone encounter Note Additional TC with no answer. Left VM to return call. LENORA Angel [facility] 11-07-2024 Telephone encounter Note T/C patient, call was lost. [facility] 11-07-2024 Telephone encounter Note Stable compression fracture. She needs to see pain management to see what procedures may be available to help with her pain. Thank you Al Nichole APRN.CNP [facility] 11-04-2024 Telephone encounter Note Prescription sent as requested. She is very sensitive to medication so I prescribed 1/2 a tablet to try. If she tolerates this and it isn't enough, she can try taking a whole tablet. Thank you Al Nichole APRN.CNP [facility] 11-04-2024 Miscellaneous Notes Prescription sent as [...] Please advise patient. documented in this encounter [facility] 11-04-2024 Telephone encounter Note Patient willing try Tramadol, please send to [facility]. [facility] 11-04-2024 Telephone encounter Note Still waiting on results. We could try tramadol which is low dose dose controlled pain pill but may be too strong for her. Does she want to try this? Take care Al Nichole APRN.NIKO [facility] 11-03-2024 Telephone encounter Note Pt checking to [...] nothing for her pain. Please advise patient. [facility] 11-02-2024 History of Presen t illness Narrative [...] PATIENT PRESENTS WITH AN IMPLANTABLE OR ATTACHED LEAD SHAREPOINT DEVELOPER: No RADIOLOGY DEPARTMENT: General X-ray: Exam(s) Completed: Spine X-Ray(s): Thoracic and Lumbar AP / LAT / L5-S1 PERIPHERAL IV DATA: Not applicable SIGNED BY: Charlotte Lambert November 02, 2024 1:40 PM documented in this encounter [facility] 11-02-2024 Note HNO ID: [id number] Author: SANTIAGO RICHMOND Tech Service: ? Author [...] PATIENT PRESENTS WITH AN IMPLANTABLE OR ATTACHED LEAD SHAREPOINT DEVELOPER: No RADIOLOGY DEPARTMENT: General X-ray: Exam(s) Completed: Spine X-Ray(s): Thoracic and Lumbar AP / LAT / L5-S1 PERIPHERAL IV DATA: Not applicable SIGNED BY: Charlotte Lambert November 02, 2024 1:40 PM [facility] 11-02-2024 Note HNO ID: [id number] Author: AL NICHOLE APRN.ALMOND BLANCHER Service: ? Author Type: Nurse Practitioner Type: Progress Notes Filed: 11/02/2024 15:40 Note Text: CC: Patient presents with: Recheck: [facility] ER follow up, fall back pain HPI Rosana Maki is a 84 year old female who presents today for ER follow-up. Facility: [facility] ER Date of visit: 10/30/24 Reason for [...] stools metoprolol succ (more content not included)... [facility] 11-02-2024 History of Presen t illness Narrative CC: Patient presents with: Recheck: [facility] ER follow up, fall back pain HPI Rosana Maki is a 84 year old female who presents today for ER follow-up. Facility: [facility] ER Date of visit: 10/30/24 Reason for [...] Screening Discontinued DATA REVIEWED: Outside chart from [facility] reviewed. ASSESSMENT/PLAN: 1. Fall, subsequent encounter [...] Al Nichole APRN.CNP documented in this encounter [facility] 11-01-2024 Note HNO ID: [id number] Author: ANAYELI PETTIT RN Service: ? Author [...] and a fall. Spouse took her to [facility]. They did a CT scan due [...] - Bi-Weekly Outreach (Recurring) Disposition Based on content coordinator, the following disposition is advised: No action needed Anayeli Pettit RN November 01, 2024 11:56 AM [facility] 11-01-2024 History of Presen t illness Narrative Images from the original note were not included. CD [facility] Telephonic Outreach Provider Action/FYI Patient [...] and a fall. Spouse took her to [facility]. They did a CT scan due [...] - Bi-Weekly Outreach (Recurring) Disposition Based on content coordinator, the following disposition is advised: No action needed Anayeli Pettit RN November 01, 2024 11:56 AM documented in this encounter [facility] 11-01-2024 Note Patient Outreach ([facility] GARRETTROSANA Christiano ([id number]) 1940 F NFR Date Time Provider Department 11/01/24 ANAYELI PETTIT [facility] During your visit today, we recorded the following information about you: Anayeli Pettit RN 11/01/2024 12:03 PM Signed [facility] Care [facility] Telephonic Outreach Provider Action/FYI [...] and a fall. Spouse took her to [facility]. They did a CT scan due [...] - Bi-Weekly Outreach (Recurring) Disposition Based on content coordinator, the following disposition is advised: No action [...] Asymptomatic Postmenopausal Status (Age-Related* 10/28/2012 Osteoarth NOS-L/Leg [RCG9754] Palpitations [R00.2] 02/23/2009 Osteoporosis [M81.0] 07/04/2009 03/13/2012 Insomnia [G47.00] 02/11/2011 Hyponatremia [E87.1] 02/11/2011 Chronic fatigue disorder [G93.32] 02/11/2011 Paroxysmal atrial fibrillation (HCC) [I48.0] Mitral valve prolapse [I34.1] Closed fracture of lumbar vertebra (HCC) [S32.0*10/18/2012 Dizziness and giddiness [R42] more content not included)... [facility] 10-17-2024 Note HNO ID: [id number] Author: ANAYELI PETTIT RN Service: ? Author [...] Contact Your Physician Team Disposition Based on content coordinator, the following disposition is advised: No action needed Anayeli Pettit RN October 17, 2024 1:52 PM [facility] 10-17-2024 History of Presen t illness Narrative CDM ENROLLMENT Provider Action / FYI: Patient identified by name and date of . Discussed care with patient. Program Details Chronic Disease Management Status: Enrolled Effective Dates: 10/17/2024 - present Responsible Staff: nAayeli Pettit RN Support and Services: High Risk [...] Contact Your Physician Team Disposition Based on content coordinator, the following disposition is advised: No action needed Anayeli Pettit RN October 17, 2024 1:52 PM documented in this encounter [facility] 10-17-2024 Note Patient Outreach ([facility] ARISROSANA WONG ([id number]) 1940 F NFR Date Time Provider Department 10/17/24 ANAYELI PETTIT [facility] During your visit today, we recorded the [...] Contact Your Physician Team Disposition Based on content coordinator, the following disposition is advised: No action [...] thyroid/hormones/adrenals/sleep/ energy/toxins/muscles/constipati on/asthma (more content not included)... [facility] 10-11-2024 Note HNO ID: [id number] Author: DIPIKA MOHR MA Service: ? Author Type: Supervisor Print Line Type: Progress Notes Filed: 10/11/2024 12:59 Note Text: POPULATION HEALTH NAVIGATION OUTREACH Action/FYI Patient returned call and follow up scheduled. Patient states she had flu shot elsewhere. Reason for Outreach Returned Call/MyChart Patient Contacted: Spoke to patient/parent/or legal guardian Patient identified by name and date of : Yes Returned call/MyChart actions taken: Patient scheduled/pended orders: Follow-up Appointment 11/08/2024 in [facility] with ROCHELLE HACKETT - Follow up, Address and close HCC gaps Navigation Signature: Dipika Mohr MA October 11, 2024 12:58 PM [facility] 10-11-2024 History of Presen t illness Narrative POPULATION HEALTH NAVIGATION OUTREACH Action/FYI Patient returned call and follow up scheduled. Patient states she had flu shot elsewhere. Reason for Outreach Returned Call/MyChart Patient Contacted: Spoke to patient/parent/or legal guardian Patient identified by name and date of : Yes Returned call/MyChart actions taken: Patient scheduled/pended orders: Follow-up Appointment 11/08/2024 in [facility] with ROCHELLE HACKETT - Follow up, [...] 2024 9:47 AM documented in this encounter [facility] 10-11-2024 Note HNO ID: [id number] Author: DIPIKA MOHR MA Service: ? Author Type: Supervisor Print Line Type: Progress Notes Filed: 10/11/2024 09:47 Note [...] Mohr MA October 11, 2024 9:47 AM [facility] 10-11-2024 Note Patient Outreach (MOLLY TNAV) ROSANA MAKI ([id number]) 1940 F NFR Date Time Provider Department 10/11/24 BESANCON, DIPIKA NETNAV During your visit today, we recorded the [...] Patient scheduled/pended orders: Follow-up Appointment 11/08/2024 in [facility] with ROCHELLE HACKETT - [...] Visit: Population Health Navigation Outreach [3910] Cmt: [facility]/Workbench/ACO Prescriptions as of 10/11/2024 - zoledronic acid [...] Asymptomatic Postmenopausal Status (Age-Related* 10/28/2012 Osteoarth NOS-L/Leg [YYH9153] Palpitations [R00.2] 02/23/2009 Osteoporosis [M81.0] 07/04/2009 03/13/2012 [...] malnutrition, unspecified sever*05/ (more content not included)... [facility] 09-29-2024 History of Presen t illness Narrative I contacted patient on 09/28/2024 4:47 PM. Answers were put into visit during pre-charting. Will the patient be in the [facility] at the time of the telehealth visit? Yes If no, notify your quality assurance practice manager & clinical quality assurance practice manager of potential issue Confirm mode for the visit is Labtript Video visit: [email or web address].Mx - confirm patients knows to login 15 [...] Only I completed the flowsheets for the Marquette Sleepines Scale and FOSQ. Pt completed I have had the pleasure of seeing Ms. Rosana Maki for evaluation at the [facility] clinic today. . Impression: [...] study. The study will be done at [facility]. We discussed treatment options and she is willing to consider CPAP treatment. If the study is positive for obstructive sleep apnea, we will therefore proceed with CPAP therapy. We discussed good sleep hygiene habits. She should never drive if drowsy and should toe puller at a safe place if she [...] (PAP) device use: No PSG at [facility]: [facility] at [address] [address] ; PSG Study Report Name: ROSANA MAKI Date of Study: 07/13/2024 [facility]#: [id number] Age: 84 (: 1940) ESS: 09/06 Neck [...] Sleep procedure: PSG 4 or more [facility] ([id number]) Procedure: The study was attended continuously by a cytopathology technologist. The monitored parameters included: left (E1-M2) [...] arousal and/or oxygen desaturation not meeting established [facility] respiratory event criteria. Respiratory events were associated [...] signs and symptoms. INTERPRETING PHYSICIAN: Judy White MD,FAASM She goes to bed at 2300 on [...] Laterality: N/A; Surgeon: Zak Jara MD; Location: [facility] EP MYOCARDIAL PERFUSION NM 03/04/13 [facility] CARDIAC CATH (OUTSIDE) 09/17/12 [facility] ECHOCARDIOGRAM (OUTSIDE) 09/15/12 [facility] Allergies Allergen Reactions Adhesive [*Adhesive Tape] Itching, [...] 3 doses are missed, contact the prescribing supervisor drying and winding as soon as possible. esomeprazole 40 MG [...] Laboratory and others: Previous medical records from [facility] were reviewed. Serum Chemistry: Lab Results Component [...] ECHOCARDIOGRAM 08/20/2013 (Final) Narrative Patient: Rosana Maki [facility] Rec#: [id number] : 1940 Date: 08/20/2013 Age: 73 Height: 168 cm / 65.5 in Weight: 53 kg / 116.6 lbs Sex: F BSA: 1.59 Room#: H7060 Type: Inpatient Loc: [facility] Lab Fellow (int): Nakul Shah MD Referring: VANDANA MILES A Reading: Mal Palacios M.D. Professional Application Designer: MARLO Green, [facility] Rhythm: NSR HR: 80 BP: 126/68 Transthoracic [...] the inferior vena cava dimension. Diagnosis codes: 52609 TTE, followup or limited study. 423.8 Pericardial effusion other specified [( )]. (R) Diagnostic Review: ESS 10 FOSQ 14 KOBE 17 IRLS MVAP 0.144 Marquette Sleepiness Score (ESS) > 10 indicates daytime [...] visit: 30 minutes documented in this encounter [facility] 09-29-2024 Instructions Maya Sal MD - 09/29/2024 11:00 AM EST Images from the original note were not included. Obstructive Sleep Apnea This is a link to an educational video about Obstructive Sleep Apnea: https://www.youtube.com/watch?v= 6bqTOfwvWhk What are the risk factors for [...] or eliminating sleep apnea. Additional Information The [facility] Sleep Medicine Program (www.[facility].edu/go/sl eepmedicine) [place] Academy of Sleep Medicine (www.aasmnet.org) National Sleep Foundation (www.sleepfoundation.org) [place] Sleep Apnea Association (www.sleepapnea.org) National Heart, Lung, and Blood [place] (www.nhlbi.nih.gov) UptoDate (www.uptodate.com/patients) Drowsy Driving Tips These suggestions will help prevent you from the risk of drowsy driving. 1. If you feel tired or drowsy do not drive. Sleepiness is a major cause of motor vehicle accidents and accounts for 40% of all fatal crashes reported on the [facility]. No matter how much you think [...] hours of driving. 8. Drive with a internal medicine nurse. Share the driving. Relax in the back seat until it is your time to share the driving again. YOU CAN FIND MORE INFORMATION BY VISITING OUR WEBPAGE: www.[facility]center.[facility].edu/go/sle epmedicine documented in this encounter [facility] 09-09-2024 Evaluation note Diagnosis Onset Date Resolution [...] Educational circumstance inactive September 20, 2024 1:30pm [facility] Work Phone: [phone]) 686-880811-14-2024 Telephone encounter Note* Telephone Encounter - SalTeri diegoDARREL - 07/28/2024 8:46 AM EST Sleep medicine order, TAYLOR, Facesheet, faxed to [facility] sleep center per patient request. Teri Araiza LPN July 28, 2024 8:47 AM [facility]11-14-2024 Miscellaneous Notes* Telephone Encounter - Sal TeriDARREL - 07/28/2024 8:46 AM EST Sleep medicine order, TAYLOR, Facesheet, faxed to [facility] sleep center per patient request. Teri Araiza [...] her to see a sleep medicine doctor. Regards, Rochelle Hackett MD [facility] Telephone encounter Note * Telephone Encounter - Rochelle Hackett MD - 07/21/2024 3:35 PM EST Please let patient know that she has upper respiratory resistance syndrome It is a little different from sleep apnea but similar in many ways and it is disturbing her sleep I would like her to see a sleep medicine doctor. RegardsRochelle MD [facility]10-31-2024 NoteHNO ID: [id number] Author: ?, ?, ? Service: ? Author Type: ? Type: Progress Notes Filed: 07/14/2024 03:02 Note Text: Sleep Study Check-In Documentation Date: July 14, 2024 Name: Rosana Maki Patient was accompanied by Spouse. Location: [place] Late[place] allergy: No Tape allergy: Yes Current medications were reviewed with the patient:Yes Sleep aid taken by patient for the sleep study: [place] of sleep aid: Not Applicable Procedure was explained to the patient and all questions were answered. PAP treatment discussed and shown to patient: Yes Knowledge Program (KP): KP was not completed in epic by patient and accepted Study type: Polysomnogram Adverse Event: No (If yes create a new abstract) Comments: Patient was advised to follow up with their ordering provider regarding test results [facility] History of Present illness Narrative* Bibi Marino - 07/14/2024 3:01 AM EDT Sleep Study Check-In Documentation Date: July 14, 2024 Name: Rosana Maki Patient was accompanied by Spouse. Location: [place] Latex allergy: No Tape allergy: Yes Current medications were reviewed with the patient:Yes Sleep aid taken by patient for the sleep study: [place] of sleep aid: Not Applicable Procedure was explained to the patient and all questions were answered. PAP treatment discussed and shown to patient: Yes Knowledge Program (KP): KP was not completed in epic by patient and accepted Study type: Polysomnogram [...] 90 days Ordered Auth. provider POLYSOMNOGRAM (PSG) [[id number]] 05/18/24 Rochelle Hackett MD Assoc. diagnoses: Sleep [...] Polysomnogram (PSG) from Rochelle Byrd a B. [facility] Staff. Visit prep complete. Comments :Yes, She has one sleep study many years ago The sleep study is scheduled for 07/05. Insurance: Payor: MEDICARE / Plan: MEDICARE A AND B / Product Type: Medicare / Payer/Plan Subscr Sex Relation Sub. Ins. ID Effective Group Num 1. [place] - [place]* ROSANA MAKI 1940 Female Self [id number] 01/12/[address] [facility]* ROSANA MAKI 1940 Female Self [id number] 09/14/21 [address] Kristina Phillip [facility] Instructions* Patient Instructions* Sol Harvey - 06/28/2024 9:09 AM EDT Your toe looks great Continue to monitor. No longer require a band aide If you have any issues, contact the office. documented in [facility]24 NoteHNO ID: [id number] Author: SOL HARVEY, ? Service: ? Author [...] No redness or drainag (more content not included)...[facility]10-15-2024 History of Present illness Narrative* Sol [...] outcome Sol Harvey DPM documented in this [facility]24 NoteHNO ID: [id number] Author: BRENDON JUAREZ III, PhD Service: ? Author Type: Physician Type: Progress Notes Filed: 07/14/2024 03:02 Note Text: June 13, 2024 Standing PSG Orders signed in the last 90 days None Future PSG Orders signed in the last 90 days Ordered Auth. provider POLYSOMNOGRAM (PSG) [[id number]] 05/18/24 Rochelle Hackett MD Assoc. diagnoses: Sleep [...] plan. Brendon Juarez III, PhD 4:43 PM, 06/13/2024[facility]09-27-2024 NoteHNO ID: [id number] Author: ?, ?, ? Service: ? Author Type: ? Type: Progress Notes Filed: 07/14/2024 03:02 Note Text: June 10, 2024 An order has been received for Polysomnogram (PSG) from Rochelle Byrd , deo [place]. [facility] Staff. Visit prep complete. Comments :Yes, She has one sleep study many years ago The sleep study is scheduled for 07/05. Insurance: Payor: MEDICARE / Plan: MEDICARE A AND B / Product Type: Medicare / Payer/Plan Subscr Sex Relation Sub. Ins. ID Effective Group Num 1. [place] - [place]* ROSANA MAKI 1940 Female Self [id number] 01/12/[address] [employer]* ROSANA MAKI 1940 Female Self [id number] 09/14/21 [address] [facility]09-19-2024 NoteHNO ID: [id number] Author: CAROLINE DAY LPN Service: ? Author [...] of Care Visit completed when applicable. [facility]onSelect [facility] History of Present illness Narrative* Caroline Day [...] growth present to digits Non-Invasive Vascular Laboratory [facility] Lower Extremity Arterial Physiology Study Bilateral/Complete Date [...] Normal at rest. Technologist: Deanna Womack RVT, [facility] Ordering physician: SOL HARVEY Interpreting physician: [...] well. Sol Harvey DPM Podiatry [address] [facility] [address] Dept: [phone] Dept * Caroline Day LPN - 06/02/2024 3:06 PM EDT AMB ROOMING INTAKE FLOWSHEET DATA Pain Pain Level: 3 Pain Location: Toe Description: Pressure, Tenderness Duration Units: Minutes Frequency: Intermittent Intervention/Comfort measure: Reposition Patient presents with: Left Great Toe - Established Patient, Pain, Ingrown Toenail Right Great Toe - Established Patient, Pain, Ingrown Toenail Caroline Day LPN documented in this [facility] Instructions* Patient Instructions* Sol Harvey - [...] as well if you have any questions/concerns [phone], ask for Podiatry Nurse documented in this encounterSub[facility]2024 NoteHNO ID: [id number] Author: SOL HARVEY, ? Service: ? Author [...] 06/01/2014 Colonoscopy COLONOSCOPY SCREENING 2013 COLONOSCOPY SCREENING 2019 DILATION AND CURETTAGE DXAND/THER NONOBSTETRIC 1989 EGD TRANSORAL BIOPSY SINGLE/MULTIPLE EGD TRANSORAL BIOPSY SINGLE/MULTIPLE 08/01/2010 ESOPHAGOGASTRODUODENOSCOPY TRANSORAL DIAGNOSTIC 06/01/2014 EGD NIPPLE EXPLORATION 09/27/2009 LEFT, surgical bx OOPHORECTOMY PARTIAL/TOTAL UNI/BI AGE 26 Oophorectomy-LEFT PAST SURGICAL HISTORY OF Left 04/2017 breast mastectomy SIGMOIDOSCOPY FLX DX W/COLLJ SPEC BR/WA IF PFRMD 07/23/2004 Sigmoidoscopy FA (more content not included)...[facility]09-19-2024 NoteHNO ID: [id number] Author: CAROLINE DAY LPN Service: ? Author [...] Established Patient, Pain, Ingrown Toenail [facility] Telephone encounter Note* Telephone Encounter - Teri Araiza LPN - 05/20/2024 4:16 PM EDT Updated patient via [employer] Teri Araiza LPN May 20, 2024 4:16 PM [facility]09-06-2024 Miscellaneous Notes* Telephone Encounter - Teri Araiza LPN - 05/20/2024 4:16 PM EDT Updated patient via [employer] Teri Araiza LPN May 20, 2024 4:16 PM * Telephone Encounter - Teri Araiza LPN - 05/20/2024 4:15 PM EDT ----- Message from Rochelle Hackett MD sent at 05/19/2024 9:27 AM EDT ----- Magnesium levels are normal RegardsRochelle MD documented in this encounter[facility] Telephone encounter Note * Telephone Encounter - Teri Araiza LPN - 05/20/2024 4:15 PM EDT ----- Message from Rochelle Hackett MD sent at 05/19/2024 9:27 AM EDT ----- Magnesium levels are normal Rochelle Babcock MD [facility]09-04-2024 Instructions* Patient Instructions* Rochelle Hackett MD - 05/18/2024 11:14 AM EDT Please get the sleep study Get a inside sales trainer to help with strengthening exercises, and try to get 30 mins of exercise daily Get lab work Increase protein intake documented in this encounter[facility] History of Present illness Narrative* Rochelle Hackett MD - 05/18/2024 10:22 AM EDT [facility] Initial Consult Rosana [...] secure location? Yes Social History: Primary language: Spanish Marital Status: Living situation: Home w/ Spouse Socially engaged? (participates in activities such as clubs, zoroastrianism, community center, sports, games, visiting friends/relatives, etc?): YES zoroastrianism, they go there 2 times a week. They meet with friends a lot Caregiver [place] and Stress Are your feeling overwhelmed? NO [...] , Taking? Yes, Authorizing Provider Sara Rangel APRN.CITY BUS DRIVER Medication famotidine (PEPCID) 20 mg tablet, Sig take 1 tablet by mouth at bedtime if needed, StartDate 09/08/23, End Date , Taking? Yes, Authorizing Provider Kalli Montes APRN.ALMOND BLANCHER Medication BENEFIBER, GUAR GUM, ORAL, Sig Take 2 teaspoonsful by mouth two times a day as needed., Start Date , End Date , Taking? Yes, Authorizing Provider Provider, [facility] Medication meclizine (ANTIVERT) 25 mg tab, Sig Take 1 tablet by mouth every 6 hours as needed (dizziness)., Start Date 05/08/23, End Date , Taking? Yes, Authorizing Provider Al Nichole APRN.ALMOND BLANCHER Medication fludrocortisone (FLORINEF) 0.1 mg tablet, Sig Taking 3 times a week Patient taking differently: Taking 1/2 a tablet 3 times a week, Start Date 11/13/21, End Date , Taking? Yes, Authorizing Provider Al Nichole APRN.ALMOND BLANCHER Medication Magnesium Glycinate 120mg 3 at night Stress, blood sugar, thyroid/hormones/adrenals/sleep/energy/toxins/muscles/constipation/asthma, Sig Work up to 3 capsules with meals at night - can cause loose stools, Start Date 03/21/21, End Date , Taking? 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 REFERRALS AND RECOMMENDATIONS 1. Discussed the cognitive benefits of memory exercises and reviewed examples 2. Discussed the cognitive benefits of physical exercise and socialization I spent more than 60 minutes with the patient on full evaluation Rochelle Hackett MD [facility] documented in this encounter[facility] History of Present illness Narrative* Caroline Day LPN - 04/22/2024 2:[address] 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 Non-Invasive Vascular Laboratory [facility] Lower Extremity Arterial Physiology Study Bilateral/Complete Date [...] Normal at rest. Technologist: Deanna Womack RVT, [facility] Ordering physician: SOL HARVEY Interpreting physician: [...] Problem Caroline Day LPN documented in this encounterSub[facility] Telephone encounter Note * Telephone Encounter - Al Nichole APRN.CNP - 04/13/2024 10:16 AM EDT Agree with recommendation. Consult order placed. Thank you Al Nichole APRN.CNP [facility]24 Miscellaneous Notes* Telephone Encounter - Al Nichole APRN.CNP - 04/13/2024 10:16 AM EDT Agree with recommendation. Consult order placed. Thank you Al Nichole APRN.CNP * Telephone Encounter - Jane Harrell MA - 04/12/2024 9:47 AM EDT Consult to geriatrics pended for mild cognitive impairment. Please file if agreeable. Jane Harrell MA documented in this encounterSub[facility]-30-[facility]24 Telephone encounter Note * Telephone Encounter - Jaen Harrell MA - 04/12/2024 9:47 AM EDT Consult to geriatrics pended for mild cognitive impairment. Please file if agreeable. Jane Harrell MA [facility]30[facility] History of Present illness Narrative* Rochelle [...] evaluated Rochelle Hackett MD documented in this encounterSuburban [facility] Hospital [facility]05-11-[facility]24 Discharge summary Author Vinh Colon [facility] January 23, 2024 4:08pm Note Date/Time January 23, 2024 2:27p [facility] Medical Records Department [address] [place] [address] Emergency Department Summary 01/23/24 MR#: [id number] Acct: [id number] Name: ROSANA MAKI Rep #:[id number] : [...] Prior similar symptoms: Yes Recent Illness/Hospitalization: Yes [facility] Medical History (Updated 01/23/24 @ 16:00 [...] Moving all 4 extremities. Nontenderno edema. Normal carrier packer strength. Neurologically she is awake alert no [...] % (Auto) 63.4 Lymph % (Auto) 30.0 Costilla % (Auto) 5.2 Eos % (Auto) 0.4 [...] right bundle branch block. First-degree AV block NV interval 234. Discharge Plan Triage Chief Complaint: [...] cover area esomeprazole magnesium 40 mg capsule,delayed release(/EC) See [...] your Primary Care Provider. Call [facility] ([phone]) or report to the closest Emergency Room. Call 911 if necessary. 01/23/24 1608 <Electronically signed by Vinh Colon MD> Cosigner Signature (if applicable): CC: Dr. Rochelle Hackett MD ~ Signed [facility] Work Phone: 1(443) 771-871504-19-2024 Discharge summary Author Pito Davis [facility] January 01, 2024 10:02am Note Date/Time January 01, 2024 10: 02am [facility] Physical Therapy [facility] [address] [place] [address]. [address] [place] [address] / REHABILITATION SERVICES DISCHARGE SUMMARY MR#: [id number] Acct: [id number] Name: ROSANA MAKI Rep #: [id number] : 1940 83 From: Pito Davis PT, ATC Referring Dr.: Dr. Erick Blanca MD Status: REG RCR Insurance: MEDICARE PART A B [employer] [facility] Discharge Summary D/C summary: It has been [...] Progress: Goal Met Plan Plan: Discharge to HEP D/C Information d/c sentence: If there are questions or concerns regarding this patient's physical therapy, please feel free to call me at [phone]. Thank you for the referral of thispatient. Sincerely, Pito Davis, PT, ATC Balance/Gait/Functional tests Balance/Special Test Scores Functional Gait Assessment Score: 24 % Disability: 20.0000 Lower Extremity Functional Score: 49 Improvement % Improvement: 70 <Electronically signed by Pito Davis PT, ATC> 01/01/24 1002 CC: Dr. Rochelle Hackett MD; Dr. Erick Blanca MD ~ [facility] Signed [facility] Work Phone: 1(271) 180-710604-02-2024 History of Present illness Narrative* RangelSara, JEAN-CLAUDE.CITY BUS DRIVER - 12/15/2023 2:00 PM EDT SUBJECTIVE: There are no preventive care reminders to display for this patient. HPI Rosana Maki is a 83 year [...] ([facility]) Siadh (Syndrome of Inappropriate Adh Production) ([facility]) Chronic Pain of Right Knee Mild Cognitive Disorder Protein-Calorie Malnutrition, Unspecified Severity ([facility]) PCP: Rochelle Hackett MD Cardiology: [facility] Oncology: [facility] Neurology: Dr. Blanca She was seen [...] neurologist regarding symptoms. She was seen at [facility] for acute hyponatremia intractable nausea and vomiting on November 21, 2023. Presents for ER follow-up visit. She was seen at [facility] December 08, 2023 for UTI.She presented with [...] pelvic floor aches evaluation and exercises at [facility]. Notes she needs to complete these at [...] Encouraged her to schedule follow-up with her health care sanitary technician and complete pelvic floor exercises previously provided. Sara Rangel APRN.CNS. Medical Decision Making: Problems: Moderate: Acute illness with systemic symptoms Data: Unique source(s) for external note(s) reviewed: 1 Unique test result(s) reviewed: 3+ Risk: Moderate: Drug management Medical Decision Making Level: 4 - Moderate documented in this encounterSuburban [facility]03-10-2024 Discharge summary Author [facility] November 22, 2023 2:45pm Note Date/Time November 22, 2023 12: 03pm [facility] Medical Records Department [address] [place] [address] Discharge Summary 11/22/23 1202 MR#: [id number] Acct: [id number] Name: ROSANA MAKI Rep #:[id number] : 1940 83 From: Marty meraz DO PCP: Dr. Rochelle Hackett MD Status:ADM I NO Location: [place] [address]-1 Providers Date of Admission: 11/21/23 Date of [...] is an 83-year-old female who presented with [facility] ED on 11/21/2023 with nausea and vomiting [...] % (Auto) 60.6, Lymph % (Auto) 32.0, Costilla% (Auto) 6.2, Eos % (Auto) 0.4, Baso [...] Clarity Clear, Urine pH 8.0, Ur Specific Hewlett 1.015, Urine Protein 15 H, Urine Glucose [...] % (Auto) 61.5, Lymph % (Auto) 27.0, Costilla % (Auto) 10.6 H, Eos % (Auto) [...] Self Care Charges/Coding Visit Charges Inpatient E&M: 40835 Disch Hosp >30min 11/22/23 1445 <Electronically signed by Marty Bassett DO> Cosigner Signature (if applicable): CC: Dr. Marty Bassett DO; Dr. Rochelle Hackett MD~ Signed [facility] Work Phone: 1(617) 533-912003-10-2024 Discharge summary Author Marty Bassett [facility] November 22, 2023 1:27pm Note Date/Time November 22, 2023 12: 03pm [facility] Medical Records Department [address] [place] [address] Instructions for Home/Discharge Instructions 11/22/23 1202 MR#: [id number] Acct: [id number] Name: ROSANA MAKI Rep #:[id number] : [...] can be placed): Home, Self Care 11/22/23 4107<Electronically signed by Marty Bassett DO>Marty Bassett DO CC: Dr. Michelle Hunt MD; Dr. Rochelle Hackett MD ~ Signed [facility] Work Phone: 1(806) 620-467703-10-2024 Hospital Discharge instructions Additional Instructions Date of Discharge: 11/22/23[facility] Work Phone: 1(585) 445-666803-10-2024 Discharge summary Author Viet Ortez [facility] November 22, 2023 12:07am Note Date/Time November 21, 2023 9:14 pm [facility] Medical Records Department [address] [place] [address] Emergency Department Summary 11/21/23 MR#: [id number] Acct: [id number] Name: ROSANA MAKI Rep #:[id number] : 1940 83 From: Viet Ortez DO PCP: Dr. Rochelle Hackett MD Status:ADM I NO Location: [place]3 AS125-0 HPI History of Present Illness Chief Complaint: [...] of a flutter. She denies sick contacts. [facility] Medical History (Updated 11/21/23 @ 23:23 [...] % (Auto) 60.6 Lymph % (Auto) 32.0 Costilla % (Auto) 6.2 Eos % (Auto) 0.4 [...] Clarity Clear Urine pH 8.0 Ur Specific Hewlett 1.015 Urine Protein 15 H Urine Glucose [...] Acute hyponatremia Disposition Disposition: Acute Care Hospital [facility] What to do if you have Problems For any increased pain, shortness of breath, bleeding, nausea or vomiting, chestpain, or any unexpected problems, contact your Primary Care Provider. Call [facility] ([phone]) or report to the closest Emergency Room. Call 911 if necessary. 11/22/236 <Electronically signed by Viet Ortez DO> Cosigner Signature (if applicable): CC: Dr. Rochelle Hackett MD ~ Signed [facility] Work Phone: 1(846) 844-212903-10-2024 History and physical note Author Michelle Hunt [facility] November 21, 2023 11:25pm Note Date/Time November 21, 2023 11:1 1pm [facility] Medical Records Department [address] [place] [address] H&P Exam - Hospitalist 11/21/23 2309 MR#: [id number] Acct: [id number] Name: ROSANA MAKI Rep #:[id number] : [...] CA, Hx TIA who presents to the [facility] ED on 11/21/23 with history of onset [...] wellas Reglan 10 mg IV x 1. PFSH Medical History (Updated 11/21/23 @ 23:23 by [...] Home Medications Bilaterl knee high compression stockings (10) #2 ea 05/29/22 [Rx Last Taken Unknown] [...] % (Auto) 60.6, Lymph % (Auto) 32.0, Costilla% (Auto) 6.2, Eos % (Auto) 0.4, Baso [...] Clarity Clear, Urine pH 8.0, Ur Specific Hewlett 1.015, Urine Protein 15 H, Urine Glucose [...] [place], Hx TIA who presents to the [facility] ED on 11/21/23 with history of onset [...] left breast: Patient (T1b, N0,M0) ER positive NV positive HER-2 negative by FISH, G1 s/p [...] 16 minutes. Charges/Coding Visit Charges Inpatient E&M: 70509 Init Hosp L2 Procedures Hospitalists Procedures: 77716 Advncd Care Plan 30 Min 11/21/23 2832 <Electronically signed by Michelle Hunt MD> Cosigner Signature (if applicable): CC: Dr. Michelle Hunt MD; Dr. Rochelle Hackett MD~ Signed [facility] Work Phone: [phone]) 323-681603-09-2024 Discharge summary Author Viet Ortez [facility] November 22, 2023 12:07am Note Date/Time November 21, 2023 9:14 pm [facility] Medical Records Department [address] [place] [address] Emergency Department Summary 11/21/23 MR#: [id number] Acct: [id number] Name: ROSANA MAKI Rep #:[id number] : 1940 83 From: Viet Ortez DO PCP: Dr. Rochelle Hackett MD Status:ADM I NO Location: [place] [address]1 HPI History of Present Illness Chief Complaint: [...] of a flutter. She denies sick contacts. [facility] Medical History (Updated 11/21/23 @ 23:23 [...] % (Auto) 60.6 Lymph % (Auto) 32.0 Costilla % (Auto) 6.2 Eos % (Auto) 0.4 [...] Clarity Clear Urine pH 8.0 Ur Specific Hewlett 1.015 Urine Protein 15 H Urine Glucose [...] Acute hyponatremia Disposition Disposition: Acute Care [facility] What to do if you have Problems For any increased pain, shortness of breath, bleeding, nausea or vomiting, chestpain, or any unexpected problems, contact your Primary Care Provider. Call [facility] ([phone]) or report to the closest Emergency Room. Call 911 if necessary. 11/22/236 <Electronically signed by Viet Ortez DO> Cosigner Signature (if applicable): CC: Dr. Rochelle Hackett MD ~ Signed [facility] Work Phone: 1(729) 570-156003-05-2024 History of Present illness Narrative* Reef Kelly Bee, RT(R) - 11/17/2023 2:20 PM EST Radiology [...] PATIENT PRESENTS WITH AN IMPLANTABLE OR ATTACHED LEAD SHAREPOINT DEVELOPER: No RADIOLOGY DEPARTMENT: CT; Exam(s) Completed: Brain PERIPHERAL IV DATA: Not applicable SIGNED BY: RT Sara(R) November 17, 2023 3:01 PM documented in this encounterSuburban [facility] Hospital [facility]02-19-2024 History of Present illness Narrative* Irish Warren APRN.ALMOND BLANCHER - 11/02/2023 3:21 PM EST SUBJECTIVE Rosana [...] does see Dr. Blanca with neurology with [facility]. She is wondering if she is having [...] (A priority) Comment: No anticoagulation. (2013: CHADS2=0. ELK9VN1-NKCc=9) On eliquis currently. She has no trouble [...] Prolapse (C priority) Protein-Calorie Malnutrition, Unspecified Severity ([facility]) - 01/14/2023 Mild Cognitive Disorder - 11/27/2020 Chronic Pain of Right Knee - 10/06/2018 Siadh (Syndrome of Inappropriate Adh Production) ([facility]) - 03/09/2018 Comment: Dx: 2012 she is on salt tablets and she has to limit her water content to 64 units a day. 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 She is done with the actonel for a life time. Neck Pain - 08/16/2015 Right-Sided Low Back Pain With Right-Sided Sciatica - 07/24/2015 Pain in Joint, Lower Leg - 04/27/2014 Dizziness and Giddiness - 03/08/2013 Closed fracture of lumbar vertebra ([facility]) - 10/18/2012 Comment: Strong family history of [...] appointment.. Irish Warren APRN-NIKO documented in this encounterSuburban [facility]02-19-2024 Miscellaneous Notes* Telephone Encounter - Grace [...] mins. Spoke with Mala. documented in this encounterSuburban [facility] Hospital [facility]02-16-2024 History of Present illness Narrative* Carlos Sheth MD - 10/30/2023 2:09 PM EST HISTORY AND PHYSICAL Rosana Maki 1940 REFERRING PHYSICIAN: Tomeka Ascencio, ALMOND BLANCHER [address] [facility] [address] [facility] [address] CHIEF COMPLAINT: No chief complaint on file. [...] single focus overall grade 1 ER positive NV positive HER-2 not amplified by fish. Resection [...] Duodenitis without mention of hemorrhage Dysphagia Dysphagia, unspecified(727.20) 08/01/2010 Esophageal reflux rare symptoms, had more [...] entered by the nurse and reviewed by wi Nursing Notes: Taryn Altamirano RN 10/30/2023 2:15 [...] Carlos Sheth III, MD documented in this encounterSuburban Community Hospital [facility]02-16-2024 Nurse Note* Taryn Altamirano RN - [...] 2018 Taryn Altamirano RN documented in this encounterSuburban Community Hospital [facility]02-09-2024 Miscellaneous Notes* Telephone Encounter - Devi Lowe LPN - 10/23/2023 11:43 AM EST [place] with Dr. Lopez's office called for [facility]. Pt will be having colonoscopy there. Identified pt with name and date of . FAX: [phone]. Done. documented in this encounterSuburban Community Hospital [facility]02-06-2024 Miscellaneous Notes* Telephone Encounter - Yamilet Dotson RN - 10/20/2023 2:41 PM EST Patient calling and requesting Gastroenterology referral information be faxed to Dr. Lopez's office. Faxed as requested to [phone] Yamilet Dotson RN documented in this encounterSuburban Community Hospital [facility]12-04-2023 History of Present illness Narrative* Maggi Aldana PA-C - 08/17/2023 8:42 AM ESTAssociated Order(s): Large Joint Arthro/Inj: R knee joint Post-Procedure Diagnose(s): Primary osteoarthritis of right knee; Chronic pain of right knee Large Joint Arthro/Inj: R knee joint Informed Consent Consent Obtained: Verbal Wallace Protocol A moment to CARE was completed. [...] injection # 2 right knee LOT # [id number] EXP 08/09/2024 Taking Tylenol when needed for the pain. Mari Conti Ma documented in this encounterSuburban Community Hospital & [facility]11-27-2023 History of Present illness Narrative* Jennifer Hardin RN - 08/10/2023 9:53 AM EST Euflexxa Injection Right knee LOT # [id number] EXP 2024-06-22 Jennifer Hardin RN * Jatinder Vick MD - 08/10/2023 9:31 AM ESTAssociated Order(s): Large Joint Arthro/Inj: R knee joint Post-Procedure Diagnose(s): Chronic pain of right knee; Primary osteoarthritis of right knee Jatinder Vick MD Department of Orthopaedics Orthopaedics [address] [place] [address] Dept: [phone] Dept August 10, 2023 CHIEF COMPLAINT: Follow [...] knee joint Informed Consent Consent Obtained: Verbal Wallace Protocol A moment to CARE was completed. [...] anxiety) Jatinder Vick MD documented in this encounterSuburban Community Hospital & [facility]11-09-2023 Miscellaneous Notes* Telephone Encounter - Yamilet [...] SYMPTOMS: no 10. :post menopausal Protocols used: [id number] documented in this encounterSuburban Community Hospital & [facility]10-26-2023 Instructions* Patient Instructions* Al Nichole APRN.CNP - 07/09/2023 1:23 PM EDT Buspar. documented in this encounterSuburban Community Hospital & [facility]10-26-2023 History of Present illness Narrative* Older, JEAN-CLAUDE Dyer.NIKO - 07/09/2023 1:08 PM EDT CC: Patient [...] - Instructed patient to contact office or [id number] after-hours promptly should condition worsen or any new symptoms appear. - [facility] [place] [facility] and after hours crisis line 5. Chronic [...] plan. Al Nichole APRN.CNP documented in this encounterSuburban Community Hospital & [facility]08-25-2023 Miscellaneous Notes* Telephone Encounter - Cris Richards Ma - 05/08/2023 3:00 PM EDT Pt notified of results via [employer] Cell. Cris Richards Ma * Telephone Encounter - Al Nichole APRN.CNP - 05/08/2023 1:10 PM EDT Please let patient know that I reviewed all of her lab workups and the only thing I want to repeat at the moment is to recheck her sodium level next week. Order for BMP placed. Thank you Al Nichole APRN.CNP documented in this encounterSuburban Community Hospital & [facility]08-25-2023 Miscellaneous Notes* Telephone Encounter - Ilya Wagner LISW - 05/08/2023 1:34 PM EDT BEHAVIORAL HEALTH SOCIAL WORK CONSULT NOTE Service Date: May 08, 2023 Patient was identified by name and Patient: Rosana Maki [address] [place] [id number] (home) [phone] (cell) PCP: Rochelle Hackett MD [address] [place] [address] Patient identified for [facility] from: PCP Reason for referral: Resources Behavioral Health Resources: Psychology - talk therapy [facility] encounter type: Telephone Encounter Assessment: Referral made to engage patient experiencing anxiety . [facility] reviewed patient's chart and insurance to identify resources. Patient stated they are experiencing anxiety. Patient denies suicidal or homicidal ideation. Patient identified she is seeking therapy sooner than [facility]. [facility] will send resources to patient through [employer] per her request. Medications: Current Outpatient Medications [...] Reason for external referral: Wait times at [facility] too long Final Disposition: Resources given Patient Discharged?: Yes Patient reported that caregiver was able to meet their needs today?: Yes Internal Referrals : No Reason for External Referrals : Wait is too long Intervention: Supportive Listening Provided referral information Resources Provided: [facility] Time Spent: 15 minutes JIGNESH Kuo-S documented in this encounterSuburban Community Hospital & [facility]08-25-2023 History of Present illness Narrative* Dayanara, JEAN-CLAUDE yDer.ALMOND BLANCHER - 05/08/2023 8:08 AM EDT CC: Patient [...] palpitations and saw her cardiology group. Sees [facility] for history of A-fib. Had a [...] - Instructed patient to contact office or [id number] after-hours promptly should condition worsen or any new symptoms appear. - [facility] and after hours crisis line 2. Nausea [...] plan. Al Nichole APRN.CNP documented in this encounterSuburban Community Hospital [facility]08-12-2023 Discharge summary Author Tejinder Mora [facility] April 25, 2023 7:17pm Note Date/Time April 25, 2023 4: 40pm [facility] Medical Records Department [address] [place] [address] Emergency Department Summary 04/25/23 MR#: [id number] Acct: [id number] Name: ROSANA MAKI Rep #:[id number] : [...] bowel movement this morning that was normal. [facility] <RIGOBERTO Grant - Last Filed: 04/25/23 19:10> [facility] Medical History Anemia Atrial flutter Atrophic vaginitis [...] mg/mL subcutaneous syringe (Prolia) 60 mg subcut [id number] bone density 08/16/19 [History Last Taken Unknown] [...] <RIGOBERTO Grant - Last Filed: 04/25/23 19:10> [facility] Narrative Medical decision making narrative: Patient presenting [...] Mora MD - Last Filed: 04/25/23 19:17> [facility] MDM Narrative Medical decision making narrative: Patient presenting [...] Prolia 60 mg/mL syringe 60 mg SC [id number] (DME) Bilaterl knee high compression stockings (10-20) [...] 180 3RF esomeprazole magnesium 40 mg capsule,delayed release(DR/EC) See [...] your Primary Care Provider. Call [facility] ([phone]) or report to the closest Emergency Room. Call 911 if necessary. 04/25/231916 <Electronically signed by Tejinder Mora MD> Cosigner Signature (if applicable): 04/25/231909 <Electronically signed by Cammie FRANKLIN> CC: Dr. Rochelle Hackett MD ~ Signed [facility] Work Phone: 1(219) 235-707208-08-2023 Miscellaneous Notes* Telephone Encounter - Faith Hauser LPN - 04/21/2023 10:06 AM EDT Patient calling in, given below results, verbalized understanding. Faith Hauser LPN * Telephone Encounter - Amaya Blankenship RN - 04/20/2023 4:45 PM EDT Called and left a voicemail for the Patient to call back and ask for a nurse to receive the providers message. Amaya Blankenship RN * Telephone Encounter - Sandra Leary APRN.CNP - 04/20/2023 4:35 PM EDT Please let patient know stool testing is negative. XR shows some stool burden but no obstruction documented in this encounterSuburban Community Hospital & [facility]08-07-2023 History of Present illness Narrative* Sara Rangel APRN.CITY BUS DRIVER - 04/20/2023 4:39 PM EDT canceled documented in this encounterSuburban Community Hospital & [facility]08-04-2023 Miscellaneous Notes* Telephone Encounter - Amaya Blankenship RN - 04/17/2023 10:55 AM EDT [...] that the test was still in process. Amaya Blankenship RN * Telephone Encounter - Sandra Leary APRN.CNP - 04/17/2023 9:38 AM EDT It is possible that the mold is what is making her sick. I would recommend staying with friends or family until the company can come remove/treat it.If they can not she should avoid that area as muchas possible and open windows to ensure good ventilation. * Telephone Encounter - Amaya Blankenship RN - 04/17/2023 9:14 AM EDT [...] with some friends. Please call and advise. Amaya Blankenship, RN * Telephone Encounter - Sandra Leary APRN.CNP - 04/17/2023 8:42 AM EDT Please let patient know her sodium is slightly lower than her normal. I would like her to get a n electrolyte drink like liquid IV or pedialyte and drink 2 glasses of that for the next couple days and we will recheck her labs on Thursday. documented in this encounterSuburban Community Hospital [facility]08-03-2023 History of Present illness Narrative* Diana [...] 16, 2023 8:48 AM documented in this encounterSuburban Community Hospital [facility]08-03-2023 History of Present illness Narrative* Sandra Leary, JEAN-CLAUDE.ALMOND BLANCHER - 04/16/2023 8:21 AM EDT Chief Complaint [...] - XR ABDOMEN 1V SUPINE Sandra Leary APRN.ALMOND BLANCHER documented in this encounterSuburban Community Hospital & [facility]08-02-2023 Miscellaneous Notes* Telephone Encounter - Grace [...] ER f/u appt fortomorrow morning with Sara Juan Carlos. Pt is wondering if she needs to have stool sample tested. documented in this encounterSub[facility]07[facility]23 Discharge summary Author Denzel Boone [facility] April 08, 2023 7:25pm Note Date/Time April 08, 2023 3:08 pm [facility] Medical Records Department [address] [place] [id number] Emergency Department Summary 04/08/23 MR#: [id number] Acct: [id number] Name: ROSANA MAKI Rep #:[id number] : 1940 83 From: Denzel Daley PCP: Dr. Rochelle Hackett MD Status:REG E R Location: ED HPI History of Present Illness Chief Complaint: [facility] Medical History Anemia Atrial flutter Atrophic vaginitis [...] mg/mL subcutaneous syringe (Prolia) 60 mg subcut [id number] bone density 08/16/19 [History Last Taken Unknown] [...] #180 caps 10/17/22 [Rx Last Taken Unknown] anastrozole 1 mg [...] MYSELF. EKG with n sinus bradycardia, prolonged NV interval, first-degree AV block rightaxis, normal intervals, [...] 40.4 L Lymph % (Auto) 45.0 H Costilla % (Auto) 12.9 H Eos % (Auto) [...] Prolia 60 mg/mL syringe 60 mg SC [id number] (DME) Bilaterl knee high compression stockings (10-20) [...] your Primary Care Provider. Call [facility] ([phone]) or report to the closest Emergency Room. Call 911 if necessary. 04/08/231924 <Electronically signed by Denzel Boone DO> Cosigner Signature (if applicable): CC: Dr. Rochelle Hackett MD ~ Signed [facility] Work Phone: 1(515) 630-770407-26-2023 History of Present illness Narrative* Sydney Romero APRN.CNP - 04/08/2023 4:39 PM EDT Patient triaged at [facility]. Blacked out helped to bed. Still feeling woosy I will refer to ER, to drive pov to [facility] Er. documented in this encounterSub[facility]07-26-2023 Miscellaneous Notes* Telephone Encounter - Irish [...] pain or bleeding. Protocols used: Dizziness - Iujitwfqehrvydw-MUOCF-PB documented in this encounterSuburban [facility]05-03-2023 History of Present illness Narrative* Sol [...] Sol Harvey DPM Podiatry [address] [facility] [address] Dept: [phone] Dept * Caroline Day LPN - 01/14/2023 2:55 PM EDT AMB ROOMING INTAKE FLOWSHEET DATA Pain Pain Level: 7 Pain Location: Toe Description: Aching, Sore Duration Units: Years Frequency: Continuous Intervention/Comfort measure: Reposition, Relaxation Patient presents with: Left Foot - New, Nail Fungus, Pain, Ingrown Toenail Right Foot - New, Nail Fungus, Pain, Ingrown Toenail Caroline Day LPN documented in this encounterSub[facility]03-10-2023 Discharge summary Author Brianda Pedro [facility] November 21, 2022 2:27pm Note Date/Time November 21, 2022 9:3 4am [facility] Physical Therapy [facility] [address] [place] [address] / REHABILITATION SERVICES DISCHARGE SUMMARY MR#: [id number] Acct: [id number] Name: ROSANA MAKI Rep #: [id number] : 1940 82 From: Cert. KEESHA AltmanT, OCS Referring DrDennis: Status: REG RCR Insurance: MEDICARE PART A B [employer] It has been my pleasure to treat ROSANA MAKI referred by MAGGI ALDANA, withthe diagnosis of PRIMARY OSTEOARTHRITIS OF RIGHT [...] please feel free to call me at [phone]. Thank you for the referral of thispatient. Sincerely, Brianda Pedro PT, Zelda THAOT, OCS Balance/Gait/Functional tests - Balance/Special Test Scores Lower Extremity Functional Score: 47 <Electronically signed by Zelda Loving PT. RAÚL ORTIZ> 11/21/22 [id number] CC: Dr. Rochelle Hackett MD; MAGGI VEADIEL ~ JLA Signed [facility] Work Phone: [phone]) 708-731903-03-2023 History of Present illness Narrative* Rochelle Hackett [...] Atrial Fibrillation - sees Dr. Cooley at [facility], last saw a few months ago. [...] recently Rochelle Hackett MD documented in this encounterSuburban [facility]12-24-2022 Miscellaneous Notes* Telephone Encounter - Ron Wong MD - 09/06/2022 8:22 AM EST Patient was able to have the Molnupiravir prescription transferred to [facility] and started the medicine last night. * Telephone Encounter - Lyssa Cerda LPN - 09/06/2022 8:12 AM EST See pharmacy's note to change rx. documented in this encounterSuburban Community Hospital & [facility]12-23-2022 Instructions* Patient Instructions* Ron Wong MD [...] healthcare provider to share your information with [employer],then your healthcare provider will report your use of molnupiravir during to [employer]. by calling or Pregnancyreporting.[employer] For individuals who are sexually active with [...] molnupiravir for the treatment of adults with oood-yt-gtyhrovj coronavirus disease 2019 (COVID-19) with positive results [...] virus. COVID-19 illnesses have ranged from very jjis-sj-xaphfc, including illness resulting in . While information [...] is an investigational medicine used to treat bard-kp-kpyxjgkj COVID-19 in adults: with positive results of [...] serious illnesses Are taking any medicines (prescription, fgfo-pio-melfshc, vitamins, or herbal products). How do I [...] to treat people with COVID-19. Go to https://www.fda.gov/vbepvkfle-dvsbhlzzidrs-mpv-response/gyg-pgheqaxfvhtsexn-knt- policy-framework/frbtjypgj-evt-rpqjtybrrkeut for more information. It is your choice [...] to FDA MedWatch at www.fda.gov/medwatch or call 7-607-FMG-9352 ( ). How should I store molnupiravir? Store molnupiravir capsules at room temperature between 68 F to 77 F (20 C to 25 C). Keep molnupiravir and all medicines out of the reach of children and pets. How can I learn more about COVID-19? Ask your healthcare provider. Visit www.cdc.gov/COVID19 Contact your local or state public health department. Call [employer] at (toll free in the [place] Visit www.Ship [employer] Duck.RewardIt.com What Is an Emergency Use Authorization (EUA)? The [place] FDA has made molnupiravir available under an emergency access mechanism called an Emergency Use Authorization (EUA) The EUA is supported by a [place] of Health and Human Service ([facility]) declaration that circumstances exist to justify emergency use of drugs and biological products during the COVID-19 pandemic. Molnupiravir for the treatment of vufd-mj-blukjirj COVID-19 in adults with positive results of [...] used under the EUA). For patent information: www.[employer].RewardIt.com/research/patent Copyright 2020 [employer] & [employer] Inc[employer] [place], [facility] and its affiliates. All rights reserved. [id number] Issued: 09/05/2021 documented in this encounterSuburban Community Hospital & [facility]12-23-2022 History of Present illness Narrative* Ron [...] increased WOB Molnupiravir Eligibility and Patient Discussion [facility] Formulary Restriction Criteria: Adult outpatients 18 [...] CORONAVIRUS Ron Wong MD documented in this encounterSuburban Community Hospital & [facility]12-23-2022 Miscellaneous Notes* Telephone Encounter - Amaya Blankenship RN - 09/05/2022 4:59 PM EST Pt called in and reports she couldn't get connected to the [facility]. Let Pt know to come into [facility] and bring her Covid test as they are open until 8 pm. They can prescribe the antivirals to her and psychosocial rehabilitation counselor her on which one to take [...] express care on line. documented in this encounterSuburban Community Hospital & [facility]12-15-2022 Miscellaneous Notes* Telephone Encounter - Amaya Blankenship RN - 08/28/2022 12:16 PM EST Pt called and is notified of providers results and instructions. Pt voices understanding. Pt statesjoanna had wanted her urology order to go to the OBGYN Urologist with [facility]. I told her I didn'tknow of any with [facility], and she said she had thought she had read something about one. I toldher I knew of Dr Ahmadi and Dr Prince that work with [facility] and she said no to both those names. I told her if she finds out who she wants to go to and the fax number to call us and let us know and we can fax her orders and information over. Amaya Blankenship RN * Telephone Encounter - Devi [...] in 3 weeks. Thank you Al Nichole APRN.NIKO documented in this encounterSuburban Community Hospital & [facility]12-07-2022 Miscellaneous Notes* Telephone Encounter - Laly Mohr LPN - 08/20/2022 11:42 AM EST Left message for patient with results and recommendations.Laly Mohr LPN * Telephone Encounter - Alice Jenkins APRN.NIKO - 08/20/2022 11:31 AM EST Please notify patient that urine culture showed mixture of bacteria which suggests possible contamination upon collection. Advise her to finish the antibiotic if it is helping her symptoms but if not, then she will need to return to provide another specimen. Thank you. Alice Jenkins APRN.NIKO documented in this encounterSuburban Community Hospital & [facility]12-06-2022 History of Present illness Narrative* Lori Patel APRN.NIKO - 08/19/2022 9:20 AM EST CC: Patient [...] by mouth twicedaily for 5 days. One [place] (Pure Encapsulation) -- fish oil Take 2 [...] plan. Lori Patel APRN.NIKO documented in this encounterSuburban Community Hospital & [facility]12-04-2022 Hospital Discharge instructions Additional Instructions Take the Reglan as directed to control nausea and vomiting and keep yourself well-hydrated. Your work-up is consistent with a viral stomach infection which will last on average 3 to 7 days. If you are continue to have bouts of emesis despite taking the Reglan or have any further concerns please return to the ER for repeat evaluationWSelect [facility] Work Phone: 1(625) 380-546211-28-2022 History of Present illness Narrative* Maggi Aldana PA-C - 08/11/2022 1:44 PM ESTAssociated Order(s): Large Joint Arthro/Inj: R knee joint Post-Procedure Diagnose(s): Primary osteoarthritis of right knee Large Joint Arthro/Inj: R knee joint Informed Consent Consent Obtained: Verbal Wallace Protocol A moment to CARE was completed. [...] # 3 into right knee. LOT # [id number] EXP 06/27/2023 Dipika Merchant Ma * Padmini Thomas RN - 08/11/2022 1:27 PM EST Patient presents with: Right Knee - Injections, Established Patient AMB ROOMING INTAKE FLOWSHEET DATA Risk Screening Do you have concerns about personal safety or safety in the home?: No Pt states no pain in right knee at this time. documented in this encounterSuburban Community Hospital & [facility]11-21-2022 History of Present illness Narrative* Maggi Aldana PA-C - 08/04/2022 1:47 PM ESTAssociated Order(s): Large Joint Arthro/Inj: R knee joint Post-Procedure Diagnose(s): Primary osteoarthritis of right knee Large Joint Arthro/Inj: R knee joint Informed Consent Consent Obtained: Verbal Wallace Protocol A moment to CARE was completed. [...] Patient denies any pain today. LOT # [id number] EXP 06/27/2023 Mari Conti Ma documented in this encounterSuburban Community Hospital & [facility]11-14-2022 History of Present illness Narrative* Maggi Aldana PA-C - 07/28/2022 2:47 PM ESTAssociated Order(s): Large Joint Arthro/Inj: R knee joint Post-Procedure Diagnose(s): Primary osteoarthritis of right knee; Chronic pain of right knee Maggi Aldana PA-C Department of Orthopaedics Orthopaedics [address] [place] [address] Dept: [phone] Dept July 28, 2022 CHIEF COMPLAINT: Established [...] knee joint Informed Consent Consent Obtained: Verbal Wallace Protocol A moment to CARE was completed. [...] 1,000 Units by mouth once daily. One [place] Creek (Pure Encapsulation) -- fish oil Take 2 capsules by mouth daily with food. No current facility-administered medications for this visit. Allergies: Adhesive Tape (Rosins), Cantaloupe, Erythromycin, Grass Pollen, Mold, Penicillins, Pollen, Prevacid [Lansoprazole], and Sulfa (Sulfonamide Antibiotics) This note was partially generated using MediSapiens voice recognition system, and there may be some incorrect words, spellings, and punctuation that were not noted in checking the note before saving. Maggi Aldana PA-C * Dipika Merchant Ma - 07/28/2022 2:26 PM EST Euflexxa injection # 1 into right knee LOT # [id number] EXP 06/27/2023 Dipika Merchant Ma * Ashley [...] since. Started water PT. documented in this encounterSuburban Community Hospital & [facility]10-31-2022 Miscellaneous Notes* Telephone Encounter - Maggi Aldana PA-C - 07/14/2022 8:32 AM EDT Noted, [...] insurance for gel injection? documented in this encounterSuburban Community Hospital & [facility]10-29-2022 Miscellaneous Notes* Telephone Encounter - Angelic [...] care discussed at visit. documented in this encounterSuburban Community Hospital & [facility]10-28-2022 History of Present illness Narrative* Justine Irizarry PA-C - 07/11/2022 2:44 PM EDT This note was created using PhaseBio Pharmaceuticalster. Subjective Rosana Maki is a 82 year [...] - can cause loose stools 0 One Wilson Creek (Pure Encapsulation) -- fish oil Take 2 [...] LAB Justine Irizarry PA-C documented in this encounterSuburban Community Hospital & [facility]10-24-2022 History of Present illness Narrative* Sofía [...] night - can cause loose stools One [place] (Pure Encapsulation) -- fish oil Take 2 [...] healed Sofía Baig PA-C documented in this encounterSuburban Community Hospital & [facility]09-26-2022 History of Present illness Narrative* Maggi Aldana PA-C - 06/09/2022 12:35 PM EDT Maggi Aldana PA-C Department of Orthopaedics Orthopaedics [address] [facility] [address] Dept: [phone] Dept June 09, 2022 CHIEF COMPLAINT: Established [...] Imaging: IMPRESSION: Progressive lateral joint compartment osteoarthrosis Business Analyst Intern: BO Transcribe Date/Time: Apr 21 2022 3:52P Dictated by : BRIANDA OROPEZA MD This examination was interpreted and the report reviewed and electronically signed by: BRIANDA OROPEZA MD on Apr 21 2022 3:52PM EST Results-Findings * * *Final Report* * * DATE OF EXAM: Apr 21 2022 3:26PM ZACH 5203 - XR KNEE 4V AP/PA BOTH+LAT/OSCAR RT / PROCEDURE REASON: [id number] * * * * Physician Interpretation * [...] 1,000 Units by mouth once daily. One [place] (Pure Encapsulation) -- fish oil Take 2 [...] anxiety) This note was partially generated using MediSapiens voice recognition system, and there may be some incorrect words, spellings, and punctuation that were not noted in checking the note before saving. Maggi Aldana PA-C * Mari Conti Ma - 06/09/2022 [...] has been ongoing. Patient was seen in [place] 7 weeksago and given an injection; she was also given a brace to wear. Patient has been doing some physical therapy but the last week has not been able to go d/t intense pain. Last xray 04/21/22. documented in this encounterSuburban Community Hospital & [facility]09-02-2022 History of Present illness Narrative* Rochelle Hackett MD - 05/16/2022 8:55 AM EDT Reason for Visit Patient presents with: F/U 6 months Rosana Maki is a 82 year old female who presents here today for Above Complaints.. Health Maintenance COVID-19 VACCINE(5 - Booster for Pfizer series) INFLUENZA(1) HPI. Rosana Maki is a 81 year old [...] she does this and needs to startagain. SIA: Sees nephrology for this, next appointment is [...] Atrial Fibrillation - sees [facility] Cooley at [facility], last saw a few months ago. Denies [...] at night Stress, blood sugar, thyroid/hormones/adrenals/sleep/energy/toxins/muscles/constipation/asthma One [place] (Pure Encapsulation) -- fish oil metoprolol succinate [...] before. Rochelle Hackett MD documented in this encounterSuburban Community Hospital & [facility]08-08-2022 History of Present illness Narrative* Jessy [...] knee joint Informed Consent Consent Obtained: Verbal Wallace Protocol A moment to CARE was completed. [...] applicable Jessy Pina PA-C documented in this encounterSuburban Community Hospital & [facility]08-08-2022 Miscellaneous Notes* Allied Health - RT Shalom(R) - 04/21/2022 2:30 PM EDT Radiology Service [...] 21, 2022 3:27 PM documented in this encounterSuburban Community Hospital & [facility]05-27-2022 History of Present illness Narrative* Alice Jenkins APRN.ALMOND BLANCHER - 02/07/2022 10:19 AM EDT Subjective The history is provided by the patient. No speech language specialist was used. HPI Rosana Maki is a [...] have confirmed and edited as necessary, the [facility] Review of Systems Constitutional: Negative [...] in 24-48 hours with results, available on [facility] - ASYMPTOMATIC ELECTIVE COVID-19 Diagnosis and treatment plan were discussed and questions were answered to the patient's satisfaction. Pt acknowledged understanding of concepts and follow up plan. Specific signs and symptoms that would indicate the need for higher level of care were discussed indetail warranting prompt ER evaluation. Alice Jenkins APRN.CNP documented in this encounterSuburban Community Hospital & [facility]05-23-2022 Miscellaneous Notes* Telephone Encounter - Rochelle Hackett MD - 02/03/2022 7:56 PM EDT Sure, I hope she does not get the covid we need to just wait and watch RegardsRochelle MD * Telephone Encounter - Amaya TRELL Blankenship - 02/03/2022 3:52 PM EDT Pt called [...] to your local emergency facility: Notify the peripheral edp equipment operator that you are seeking care for [...] can be around others. documented in this encounterSuburban Community Hospital & [facility]05-09-2022 Miscellaneous Notes* Telephone Encounter - Gauri Sanchez LPN - 01/20/2022 11:42 AM EDT Patient notified of results. Gauri Sanchez LPN * Telephone Encounter - Al Nichole APRN.CNP - 01/20/2022 9:44 AM EDT Please let patient know that I have reviewed Recent lab work and it is within acceptable ranges andsimilar to previous results. Thank you Al Nichole APRN.CNP documented in this encounterSuburban Community Hospital & [facility]04-25-2022 Miscellaneous Notes* Telephone Encounter - Gauri [...] you. Gauri Sanchez LPN documented in this encounterSuburban Community Hospital & [facility]04-20-2022 Miscellaneous Notes* Telephone Encounter - Cristina [...] she had labs done in November at [facility]. Please advise on labs. Please review and advise, Yuli Delgado RN documented in this encounterSuburban Community Hospital & [facility]04-18-2022 Miscellaneous Notes* Telephone Encounter - Magdiel Villalba Ma - 12/30/2021 9:24 AM EDT Pt notified via [employer]. * Telephone Encounter - Amaya Blankenship RN - 12/25/2021 12:12 PM EDT Called and left a voicemail for the Patient to call back and ask for a nurse to receive the providers message. Amaya Blankenship RN * Telephone Encounter - Al Nichole APRN.CNP - 12/25/2021 12:07 PM EDT Please let patient know that I have reordered the meclizine. Thank you Al Nichole APRN.CNP * Telephone Encounter - Yuli Delgado RN [...] this for her. Thank you Al Nichole APRN.CNP * Telephone Encounter - Yamilet Dotson RN [...] having daily. Requesting [facility] pharmacy in [place]. Patient also asking if she can have a referral for GI consult due to stomach issues? She would liketo see Dr. Sharma possibly since she has done a colonoscopy on her in the past. Please call patient with provider's response. Thank you. documented in this encounterSuburban Community Hospital [facility]07-13-2021 History of Present illness Narrative* Diana [...] 26, 2021 2:42 PM documented in this encounterSuburban Community Hospital & [facility]03-06-2020 History of Past illness Narrative* Problem [...] of this encounter (statuses as of 11/14/2022) [facility] History of Past illness Narrative* Problem [...] OSTEOPENIA 07/04/2009 Other forms of migraine 05/04/20 Asymptomatic Postmenopausal Status (Age-Related) (Natural) 10/28/2012 documented as of this encounter (statuses as of 01/15/2023) [facility] History of Past illness Narrative* Problem [...] of this encounter (statuses as of 04/08/2023) [facility] History of Past illness Narrative* Problem [...] of this encounter (statuses as of 04/09/2023) [facility] History of Past illness Narrative* Problem [...] of this encounter (statuses as of 04/16/2023) [facility] History of Past illness Narrative* Problem [...] of this encounter (statuses as of 04/16/2023) [facility] History of Past illness Narrative* Problem [...] of this encounter (statuses as of 04/21/2023) [facility] History of Past illness Narrative* Problem [...] of this encounter (statuses as of 04/21/2023) [facility] History of Past illness Narrative* Problem [...] of this encounter (statuses as of 04/24/2023) [facility] History of Past illness Narrative* Problem [...] of this encounter (statuses as of 05/05/2023) [facility] of Past illness Narrative* Problem [...] of this encounter (statuses as of 05/08/2023) [facility] of Past illness Narrative* Problem [...] of this encounter (statuses as of 05/08/2023) [facility] of Past illness Narrative* Problem [...] of this encounter (statuses as of 07/10/2023) [facility] of Past illness Narrative* Problem [...] of this encounter (statuses as of 07/23/2023) [facility] History of Past illness Narrative* Problem [...] of this encounter (statuses as of 07/29/2023) [facility] of Past illness Narrative* Problem [...] of this encounter (statuses as of 08/10/2023) [facility] of Past illness Narrative* Problem [...] of this encounter (statuses as of 08/17/2023) [facility] of Past illness Narrative* Problem [...] of this encounter (statuses as of 10/21/2023) [facility] of Past illness Narrative* Problem [...] of this encounter (statuses as of 10/23/2023) [facility] of Past illness Narrative* Problem [...] of this encounter (statuses as of 10/30/2023) [facility] of Past illness Narrative* Problem [...] of this encounter (statuses as of 11/02/2023) [facility] of Past illness Narrative* Problem [...] of this encounter (statuses as of 11/02/2023) [facility] of Past illness Narrative* Problem [...] of this encounter (statuses as of 11/18/2023) [facility] of Past illness Narrative* Problem [...] of this encounter (statuses as of 12/15/2023) [facility] Evaluation note* Diagnosis Onset Date Resolution Status 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, 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 Anemia chronic 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, 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 Vaginal dryness chronic Cerebrovascular disease crepe sole scourer maximiliano Mild cognitive impairment ch ronic SIADH (syndrome of inappropriate ADH production) [facility] Work Phone: [phone]) 344-347508-01-2017 Evaluation note* Diagnosis Onset Date Resolution Status 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, 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 Anemia chronic 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, 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 Vaginal dryness chronic Mild cognitive impairment ch ronic SIADH (syndrome of inappropriate ADH production) [facility] Work Phone: [phone] Evaluation note* Diagnosis Onset Date Resolution Status [...] (valve) prolapse chronic Paroxysmal atrial fibrillation chronic [facility] Work Phone: [phone] Evaluation note* Diagnosis Onset Date Resolution Status [...] mitral (valve) prolapse chronic Paroxysmal atrial fibrillation [facility] Work Phone: [phone] 424-627908-01-2017 Evaluation note* Diagnosis Onset Date Resolution Status [...] mitral (valve) prolapse chronic Paroxysmal atrial fibrillation [facility] Work Phone: [phone]) 720-723204-07-2016 History of Past illness Narrative* Problem Noted [...] of this encounter (statuses as of 12/30/2021) [facility] History of Past illness Narrative* Problem [...] of this encounter (statuses as of 01/01/2022) [facility] History of Past illness Narrative* Problem [...] of this encounter (statuses as of 01/06/2022) [facility] History of Past illness Narrative* Problem [...] of this encounter (statuses as of 01/20/2022) [facility] History of Past illness Narrative* Problem [...] of this encounter (statuses as of 02/07/2022) [facility] History of Past illness Narrative* Problem [...] of this encounter (statuses as of 04/17/2022) [facility] History of Past illness Narrative* Problem [...] of this encounter (statuses as of 04/21/2022) [facility] History of Past illness Narrative* Problem [...] of this encounter (statuses as of 04/22/2022) [facility] History of Past illness Narrative* Problem [...] of this encounter (statuses as of 05/02/2022) [facility] History of Past illness Narrative* Problem [...] of this encounter (statuses as of 05/16/2022) [facility] History of Past illness Narrative* Problem [...] of this encounter (statuses as of 06/09/2022) [facility] History of Past illness Narrative* Problem [...] of this encounter (statuses as of 07/07/2022) [address]-2016 History of Past illness Narrative* Problem [...] of this encounter (statuses as of 07/11/2022) [address]2016 History of Past illness Narrative* Problem [...] of this encounter (statuses as of 07/12/2022) [facility] History of Past illness Narrative* Problem [...] of this encounter (statuses as of 07/14/2022) [address] History of Past illness Narrative* Problem [...] of this encounter (statuses as of 07/29/2022) [facility] History of Past illness Narrative* Problem [...] of this encounter (statuses as of 08/04/2022) [facility] History of Past illness Narrative* Problem [...] of this encounter (statuses as of 08/11/2022) [address]2016 History of Past illness Narrative* Problem [...] of this encounter (statuses as of 08/19/2022) [place] [address]-07-2016 History of Past illness Narrative* Problem Noted [...] of this encounter (statuses as of 08/20/2022) [facility] History of Past illness Narrative* Problem [...] of this encounter (statuses as of 08/28/2022) [place] [address]-07-2016 History of Past illness Narrative* Problem Noted [...] of this encounter (statuses as of 09/07/2022) [facility] History of Past illness Narrative* Problem [...] of this encounter (statuses as of 09/07/2022) [facility] History of Past illness Narrative* Problem [...] of this encounter (statuses as of 09/08/2022) [facility] History of Past illness Narrative* Problem [...] of this encounter (statuses as of 10/30/2022) [facility] for [facility] N[facility]* Chief Complaint SCREENING 2 ORDERING HARIS/ ROXANN AND FERNIE 4 M FU EORDER COVID-19 RT SHOULDER/RX HERE 3 M FU R KNEE. RX HERE n/v chest pain, fast heart rate Reason for Visit Anemia Cerebrovascular disease Edema of both legs Mild cognitive impairment SIADH (syndrome of inappropriate ADH production) Encounter for screening for COVID-19 Hyponatremia with decreased serum osmolality Nonrheumatic mitral (valve) prolapse Paroxysmal atrial fibrillation [facility] Work Phone: Evaluation note* Diagnosis Nausea Nausea alone Dizziness Dizziness and giddiness [facility] Diagnosis Exposure to COVID-19 virus- Primary [facility] this [facility]* Diagnosis Onset Date Resolution Status Cerebrovascular disease crepe sole scourer maximiliano Mild cognitive impairment ch ronic 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 Chest pain, unspecified acut e Fatigue acute Hyponatremia with decreased serum osmolality acute Nonrheumatic mitral (valve) prolapse chronic Paroxysmal atrial fibrillation chronic [facility] Work Phone: Evaluation note* Diagnosis Onset Date [...] 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 Vaginal dryness chronic [facility] Work Phone: Evaluation note* Diagnosis Pain- Primary Generalized pain [facility]* Diagnosis Primary osteoarthritis of right knee- Primary Primary localized osteoarthrosis, lower leg Acquired genu valgum of right knee [facility]* Diagnosis Pain Generalized pain [facility] Diagnosis Medication management Encounter for long-term (current) use of other medications documented in this encounter [facility] note* Diagnosis 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 Paroxysmal atrial fibrillation (HCC) Atrial fibrillation Dizziness and giddiness Chronic fatigue disorder Chronic fatigue syndrome Mild cognitive disorder Unspecified persistent mental disorders due to conditions classified elsewhere documented in this encounter [facility] note* Diagnosis Onset Date Resolution Status Chest [...] Vaginal dryness chronic Anemia chronic Cerebrovascular disease crepe sole scourer maximiliano Edema of both legs chronic Mild cognitive impairment ch ronic 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 [facility] Work Phone: Evaluation note* Diagnosis Primary osteoarthritis of right knee- Primary Primary localized osteoarthrosis, lower leg Chronic pain of right knee [facility]* Diagnosis Onset Date Resolution Status Chest [...] Vaginal dryness chronic Anemia chronic Cerebrovascular disease crepe sole scourer maximiliano Edema of both legs chronic Mild cognitive impairment ch ronic 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 Encounter for screening for COVID-19 acute [facility] Work Phone: evaluation note* Diagnosis Visit for suture removal- Primary Encounter for removal of sutures Laceration of right index finger without damage to nail, foreign body presence unspecified, initial encounter documented in this encounter [facility] note* Diagnosis Right leg swelling- Primary Swelling of limb [facility] Diagnosis Primary osteoarthritis of right knee- Primary Primary localized osteoarthrosis, lower leg Chronic pain of right knee [facility]* Diagnosis Primary osteoarthritis of right knee- Primary Primary localized osteoarthrosis, lower leg [facility]* Diagnosis Onset Date Resolution Status Anemia chronic Cerebrovascular disease crepe sole scourer maximiliano Edema of both legs chronic Mild cognitive impairment ch ronic 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 Encounter for screening for COVID-19 acute Hyponatremia with decreased serum osmolality acute Nonrheumatic mitral (valve) prolapse chronic Paroxysmal atrial fibrillation chronic [facility] Work Phone: Evaluation note* Diagnosis Urinary frequency- Primary [facility] Diagnosis Abnormal thyroid blood test- Primary Nonspecific abnormal results of thyroid function study Other fatigue documented in this encounter [facility] note* Diagnosis Acute COVID-19- Primary [facility]* Diagnosis Acute COVID-19 [facility] Diagnosis Urinary incontinence, unspecified type- Primary Paroxysmal atrial fibrillation (HCC) Atrial fibrillation SIADH (syndrome of inappropriate ADH production) ([facility]) Other disorders of neurohypophysis Chronic fatigue disorder Chronic fatigue syndrome Dizziness and giddiness Mild cognitive disorder Unspecified persistent mental disorders due to conditions classified elsewhere Major depressive disorder, recurrent, in partial remission ([facility]) Major depressive disorder, recurrent episode, in partial or unspecified remission [facility] Diagnosis Onychomycosis- Primary Dermatophytosis of nail Diminished pulses in lower extremity Other symptoms involving cardiovascular system Protein-calorie malnutrition, unspecified severity ([facility]) [facility] Diagnosis Onset Date Resolution Status Hyponatremia with decreased serum osmolality acute Nonrheumatic mitral (valve) prolapse chronic Paroxysmal atrial fibrillation chronic Polyneuropathy acute Mild cognitive impairment ch ronic SIADH (syndrome of inappropriate ADH production) [facility] Work Phone: Evaluation note* Diagnosis Black-out (not amnesia)- Primary Syncope and collapse [facility] Diagnosis Onset Date Resolution Status Hyponatremia [...] 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 Vaginal dryness [facility] Work Phone: Evaluation note* Diagnosis Diarrhea, unspecified type- Primary [facility] Diagnosis APPOINTMENT CANCELLED- Primary [facility] Diagnosis Medication management Encounter for long-term (current) use of other medications [facility] Diagnosis Onset Date Resolution Status Hyponatremia [...] (valve) prolapse chronic Paroxysmal atrial fibrillation chronic [facility] Work Phone: Evaluation note* Diagnosis Hyponatremia- Primary Hyposmolality and/or hyponatremia documented in this encounter [facility] note* Diagnosis Anxiety and depression- Primary Dysthymic disorder Nausea Nausea alone Dizziness Dizziness and giddiness Diarrhea, unspecified type Paroxysmal atrial fibrillation (HCC) Atrial fibrillation Hyponatremia Hyposmolality and/or hyponatremia Chronic fatigue disorder Chronic fatigue syndrome Gastroesophageal reflux disease, unspecified whether esophagitis present documented in this encounter [facility] note* Diagnosis Diarrhea, unspecified type- Primary SIADH (syndrome of inappropriate ADH production) ([facility]) Other disorders of neurohypophysis Hyponatremia Hyposmolality and/or hyponatremia Anxiety Anxiety state, unspecified Chronic pain of right knee Need for influenza vaccination Need for prophylactic vaccination and inoculation against influenza [facility]* Diagnosis Right knee pain, unspecified chronicity- Primary documented [facility] this [facility]* Diagnosis Primary osteoarthritis of right knee- Primary Primary localized osteoarthrosis, lower leg Chronic pain of right knee [facility]* Diagnosis Onset Date Resolution Status Hyponatremia with decreased serum osmolality acute Nonrheumatic mitral (valve) prolapse chronic Paroxysmal atrial fibrillation chronic Chest pain, unspecified acut e Fatigue acute Hyponatremia with decreased serum osmolality acute Nonrheumatic mitral (valve) prolapse chronic Paroxysmal atrial fibrillation [facility] Work Phone: Evaluation note* Diagnosis Chronic pain of right knee- Primary Primary osteoarthritis of right knee Primary localized osteoarthrosis, lower leg [facility]* Diagnosis Onset Date Resolution Status Chest pain, unspecified acut e Fatigue acute Hyponatremia with decreased serum osmolality acute Nonrheumatic mitral (valve) prolapse chronic Paroxysmal atrial fibrillation chronic Abnormality of gait and mobility acute Fatigue acute Orthostatic hypotension acut e Polyneuropathy acute Sarcopenia acute Mild cognitive impairment ch ronic 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 [facility] Work Phone: Evaluation note* Diagnosis Onset Date [...] April, 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 [facility] Work Phone: Evaluation note* Diagnosis Mastodynia- Primary Costochondritis Tietze's disease [facility] Diagnosis TIA (transient ischemic attack)- Primary Unspecified transient cerebral ischemia Aphasia Ocular migraine Other forms of migraine, without mention of intractable migraine without mention of status migrainosus Yeast dermatitis Candidiasis of skin and nails [facility] Diagnosis TIA (transient ischemic attack) Unspecified transient cerebral ischemia Aphasia Ocular migraine Other forms of migraine, without mention of intractable migraine without mention of status migrainosus [facility] Diagnosis Onset Date Resolution Status Abnormality [...] ac uma Intractable nausea and vomiting acute [facility] Work Phone: Evaluation note* Diagnosis Onset Date [...] Intractable nausea and vomiting resolved Fatigue acute [facility] Work Phone: Evaluation note* Diagnosis Urinary incontinence, unspecified type- Primary Urinary tract infection without hematuria, site unspecified [facility]* Diagnosis Onset Date Resolution Status Abnormality [...] and vomiting resolved Fatigue acute Fatigue acute [facility] Work Phone: Evaluation note* Diagnosis Vitamin B12 [...] conditions classified elsewhere [facility] Diagnosis Mild cognitive impairment- Primary Mild cognitive impairment, so stated documented in this encounter [facility] note* Diagnosis Onychomycosis- Primary Dermatophytosis of nail Ingrowing toenail Ingrowing nail [facility]* Diagnosis Persistent atrial fibrillation (HCC)- Primary [...] of other medications [facility] Diagnosis Persistent atrial fibrillation (HCC)- Primary [...] unspecified Other fatigue [facility] Diagnosis Persistent atrial fibrillation (HCC)- Primary [...] Diarrhea, unspecified type [facility] Diagnosis Persistent atrial fibrillation (HCC)- Primary [...] Primary Ingrowing nail [facility] Diagnosis Persistent atrial fibrillation (HCC)- Primary [...] knee documented in this encounter [facility] note* Diagnosis Persistent atrial fibrillation (HCC)- Primary [...] initial encounter- Primary [facility] Diagnosis Persistent atrial fibrillation (HCC)- Primary [...] disease SIADH (syndrome of inappropriate ADH production) ([facility]) Other disorders of neurohypophysis Sleep apnea, unspecified type- Primary [facility] Diagnosis Onset Date Resolution Status Chest pain, unspecified acut e Fatigue acute Hyponatremia with decreased serum osmolality acute Nonrheumatic mitral (valve) prolapse chronic Paroxysmal atrial fibrillation [facility] Work Phone: Evaluation note* Diagnosis Atrial fibrillation- [...] Primary Hypersomnia, unspecified [facility] Diagnosis Atrial fibrillation- Primary Sleep apnea, [...] Primary Hypersomnia, unspecified [facility] Diagnosis Persistent atrial fibrillation (HCC)- Primary [...] hyponatremia Hypokalemia Hypopotassemia [facility] Diagnosis Persistent atrial fibrillation (HCC)- [...] encounter [facility]* Diagnosis Persistent atrial fibrillation (HCC)- Primary [...] unspecified back location documented in this encounter [facility] note* Diagnosis Persistent atrial fibrillation (HCC)- Primary [...] (HCC) documented in this encounter [facility] note* Diagnosis Persistent atrial fibrillation (HCC)- Primary [...] Insomnia, unspecified type documented in this encounter [facility] note* Diagnosis Persistent atrial fibrillation (HCC)- Primary [...] (HCC) Glucocorticoid deficiency [facility] Diagnosis Persistent atrial fibrillation (HCC)- Primary [...] ADH production) (HCC) Other disorders of neurohypophysis Hospital discharge follow-up- Primary Other follow-up examination Hyponatremia Hyposmolality and/or hyponatremia Constipation, unspecified constipation type Acute cough 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) Other disorders of neurohypophysis Paroxysmal atrial fibrillation (HCC) Atrial fibrillation documented in this encounter [facility] note* Diagnosis Persistent atrial fibrillation (HCC)- Primary [...] ADH production) (HCC) Other disorders of neurohypophysis Tick bite of pelvic region, initial encounter- Primary documented in this encounter [facility] note* Diagnosis Persistent atrial fibrillation (HCC)- Primary [...] ADH production) (HCC) Other disorders of neurohypophysis Right shoulder pain, unspecified chronicity- Primary [facility] Diagnosis Persistent atrial fibrillation (HCC)- Primary [...] ADH production) (HCC) Other disorders of neurohypophysis Urinary retention- Primary Retention of urine, unspecified [facility]* Diagnosis Persistent atrial fibrillation (HCC)- Primary [...] ADH production) (HCC) Other disorders of neurohypophysis Urinary retention- Primary Retention of urine, unspecified Encounter for Cotto catheter removal Fitting and adjustment of urinary device [facility] Diagnosis Persistent atrial fibrillation (HCC)- Primary [...] ADH production) (HCC) Other disorders of neurohypophysis Urine retention- Primary Retention of urine, unspecified [facility] Diagnosis Persistent atrial fibrillation (HCC)- Primary [...] ADH production) (HCC) Other disorders of neurohypophysis Right shoulder pain, unspecified chronicity [facility] Diagnosis Persistent atrial fibrillation (HCC)- Primary [...] ADH production) (HCC) Other disorders of neurohypophysis Primary osteoarthritis of right knee Primary localized osteoarthrosis, lower leg [facility] Diagnosis Persistent atrial fibrillation (HCC)- Primary [...] ADH production) (HCC) Other disorders of neurohypophysis Primary osteoarthritis of right knee- Primary Primary localized osteoarthrosis, lower leg Primary osteoarthritis of right shoulder Primary localized osteoarthrosis, shoulder region Primary osteoarthritis of right knee Primary localized osteoarthrosis, lower leg [facility] Diagnosis Persistent atrial fibrillation (HCC)- Primary [...] ADH production) (HCC) Other disorders of neurohypophysis Primary osteoarthritis of right knee- Primary Primary localized osteoarthrosis, lower leg [facility] Diagnosis Persistent atrial fibrillation (HCC)- Primary [...] ADH production) (HCC) Other disorders of neurohypophysis Primary osteoarthritis of right knee- Primary Primary localized osteoarthrosis, lower leg [facility] Diagnosis Persistent atrial fibrillation (HCC)- Primary [...] ADH production) (HCC) Other disorders of neurohypophysis Medicare annual wellness visit, subsequent- Primary Routine general medical examination at a health care facility documented in this encounter [facility] Author Michelle Hunt [facility] November 21, 2023 11:25pm Note Date/Time November 21, 2023 11:1 1pm [facility] Medical Records Department [address] [place] [address] H&P Exam - Hospitalist 11/21/23 1207 MR#: [id number] Acct: [id number] Name: ROSANA MAKI Rep #:[id number] : [...] CA, Hx TIA who presents to the [facility] ED on 11/21/23 with history of onset [...] wellas Reglan 10 mg IV x 1. PFSH Medical History (Updated 11/21/23 @ 23:23 by [...] % (Auto) 60.6, Lymph % (Auto) 32.0, Costilla% (Auto) 6.2, Eos % (Auto) 0.4, Baso [...] Clarity Clear, Urine pH 8.0, Ur Specific Hewlett 1.015, Urine Protein 15 H, Urine Glucose [...] CA, Hx TIA who presents to the [facility] ED on 11/21/23 with history of onset [...] left breast: Patient (T1b, N0,M0) ER positive NV positive HER-2 negative by FISH, G1 s/p left mastectomy with sentinel lymph node biopsy 04/17/2017, transitioned to Arimidex following and thenaddition of Prolia for bone support therapy, following with oncology, most recent visit noted 10/08/2023 with Tomeka Silva unclear exact type, status postleft mastectomy, considered [...] home apixaban regimen. #11. CODE status: Patient HCPROXY is her who is present and living [...] 16 minutes. Charges/Coding Visit Charges Inpatient E&M: 07770 Init Hosp L2 Procedures Hospitalists Procedures: 46187 Advncd Care Plan 30 Min 11/21/23 5019 <Electronically signed by Michelle Hunt MD> Cosigner Signature (if applicable): CC: Dr. Michelle Hunt MD; Dr. Rochelle Hackett MD~ Signed [facility] Work Phone: Hospital Discharge instructions Additional Instructions [...] care physician for further outpatient evaluation and management.[facility] Work Phone: Hospital Discharge instructions Additional Instructions Please follow-up with your PCP and return for any worsening of your symptoms. Stay well-hydrated.[facility] Work Phone: Hospital Discharge instructions Additional Instructions Plenty of fluids and rest. Increase diet slowly as tolerated. Follow-up with your doctor as needed. Return if worse. Zofran as needed for nausea.[facility] Work Phone: Hospital Discharge instructions Additional Instructions Please follow-up with your PCP. Stay well-hydrated, return for any worsening of your symptoms.[facility] Work Phone: Reason for referral (narrative)* Diagnostic Procedure Only (Routine) - Authorized Specialty Diagnoses / Procedures Referred By Contac t Referred To Contact XR IMAGING Diagnoses Pain Procedures XR KNEE GENERAL 4V AP BOTH/PA BOTH/LAT/MERC RIGHT RADIOLOGIC EXAM KNEE COMPLETE 4/MORE VIEWS Jessy Pina PA-C [address] [place] [address] Xr Imaging Referral ID Status Reason Start Date Expiration Date Visits Requested Visits Authorized [id number] Authorized Auto-Generat ed Referral 04/17/2022 05/17/2023 1 1 [facility] for referral (narrative)* Diagnostic Procedure Only (Routine) - Closed Specialty Diagnoses / Procedures Referred By Contac t Referred To Contact XR IMAGING Diagnoses Pain Procedures XR KNEE GENERAL 4V AP BOTH/PA BOTH/LAT/MERC RIGHT RADIOLOGIC EXAM KNEE COMPLETE 4/MORE VIEWS Jessy Pina PA-C [address] [place] [address] Xr Imaging Referral ID Status Reason Start Date Expiration Date V isits Requested Visits Authorized [id number] Closed Auto-Generate d Referral 04/17/2022 05/17/2023 1 1 [facility] for referral (narrative)* Outpatient Procedure (Urgent) - Closed Specialty Diagnoses / Procedures Referred By Contac t Referred To Contact [facility] Diagnoses Right leg swelling Procedures US LEG VEIN DVT UNL VAS LAB DUP-SCAN XTR VEINS UNILATERAL/LIMITED STUDY Justine Irizarry PA-C [address] [place] [address] [address] Referral ID Status Reason Start Date Expiration Date V isits Requested Visits Authorized [id number] Closed Auto-Generate d Referral 07/11/2022 07/11/2023 1 1 [facility] for referral (narrative)* Outpatient Procedure (Routine) - Authorized Specialty Diagnoses / Procedures Referred By Contac t Referred To Contact [facility] Diagnoses Onychomycosis Diminished pulses in lower extremity Procedures PVR ANK PRESS NANCY VAS LAB NON-INVAS PHYSIOLOGIC STD EXTREMITY ART 2 LEVEL Sol Harvey [address] [place] [address] [address] Referral ID Status Reason Start Date Expiration Date Visits Requested Visits Authorized [id number] Authorized Auto-Generat ed Referral 01/14/2023 01/14/2024 1 1 [facility] for referral (narrative)* Diagnostic Procedure Only (Routine) - Closed Specialty Diagnoses / Procedures Referred By Contac t Referred To Contact XR IMAGING Diagnoses Diarrhea, unspecified type Procedures XR ABDOMEN 1V SUPINE RADIOLOGIC EXAM ABDOMEN 1 VIEW Sandra Leary APRN.[facility] BLANCHER [address] [place] [address] Xr Imaging Referral ID Status Reason Start Date Expiration Date V isits Requested Visits Authorized [id number] Closed Auto-Generate d Referral 04/16/2023 05/15/2024 1 1 [facility] for referral (narrative)* Diagnostic Procedure Only (Routine) - Pending Review Specialty Diagnoses / Procedures [facility] Diagnoses Right knee pain, unspecified chronicity Procedures XR KNEE GENERAL 4V AP BOTH/PA BOTH/LAT/MERC RIGHT RADIOLOGIC EXAM KNEE COMPLETE 4/MORE VIEWS Jatinder Vick MD [address] [place] [address] [place] [address] Referral ID Status Reason Start Date Expiration Date Visits Requested Visits Authorized [id number] Pending Review Auto-Generat ed Referral 3 08/27/2024 1 1 [facility] for referral (narrative)* Outpatient Procedure (Routine) - Authorized Specialty Diagnoses / Procedures [facility] Diagnoses TIA (transient ischemic attack) Aphasia Ocular migraine Procedures US CAROTID ARTERIES NANCY VAS LAB DUPLEX SCAN EXTRACRANIAL ART COMPL BI STUDY Irish Warren APRN.[facility] BLANCHER [address] [place] [address] [facility] [address] [place] [address] Referral ID Status Reason Start Date Expiration Date Visits Requested Visits Authorized [id number] Authorized Auto-Generat ed Referral 11/02/2023 11/01/2024 1 1 * MRI/CT (Routine) - Authorized Specialty Diagnoses / Procedures [facility] To Contact [facility] IM[facility] Diagnoses TIA (transient ischemic attack) Aphasia Ocular migraine Procedures CT BRAIN WO IVCON CT HEAD/BRAIN W/O CONTRAST MATERIAL Irish Warren APRN.[facility]MON[facility] BLANCHER [address] [place] [address] [place] [address] Referral ID Status Reason Start Date Expiration Date Visits Requested Visits Authorized [id number] Authorized Auto-Generat ed Referral 11/02/2023 12/01/2024 1 1 [facility] for referral (narrative)* Diagnostic Procedure Only (Routine) - Closed Specialty Diagnoses / Procedures Referred By Contac t Referred To Contact XR IMAGING Diagnoses Diarrhea, unspecified type Procedures XR ABDOMEN 1V SUPINE RADIOLOGIC EXAM ABDOMEN 1 VIEW Sandra Leary APRN.CNP [address] [place] [address] [place] [address] Referral ID Status Reason Start Date Expiration Date V isits Requested Visits Authorized [id number] Closed Auto-Generate d Referral 04/16/2023 05/15/2024 1 1 [facility] for referral (narrative)No reason for referral information availableWSelect Medical [facility] Work Phone: [facility] Narrative* Diagnostic Procedure Only (Routine) - Closed Specialty Diagnoses / Procedures Referred By Contac t Referred To Contact XR IMAGING Diagnoses Pain Procedures XR KNEE GENERAL 4V AP BOTH/PA BOTH/LAT/MERC RIGHT RADIOLOGIC EXAM KNEE COMPLETE 4/MORE VIEWS Jessy Pina PA-C [address] [place] [address] Xr Imaging Referral ID Status Reason Start Date Expiration Date V isits Requested Visits Authorized [id number] Closed Auto-Generate d Referral 04/17/2022 05/17/2023 1 1 [facility] for visit Narrative* Diagnostic Procedure Only (Routine) - Closed Specialty Diagnoses / Procedures Referred By Contac t Referred To Contact XR IMAGING Diagnoses Diarrhea, unspecified type Procedures XR ABDOMEN 1V SUPINE RADIOLOGIC EXAM ABDOMEN 1 VIEW Sandra Leary APRN.CNP [address] [place] [address] [place] [address] Referral ID Status Reason Start Date Expiration Date V isits Requested Visits Authorized [id number] Closed Auto-Generate d Referral 04/16/2023 05/15/2024 1 1 [facility] for visit Narrative* Diagnostic Procedure Only (Routine) - Closed Specialty Diagnoses / Procedures Referred By Contac t Referred To Contact XR IMAGING Diagnoses Acute midline back pain, unspecified back location Fall, subsequent encounter Procedures XR LUMBAR GENERAL 3V AP/LAT/L5-S1 RADEX SPINE LUMBOSACRAL 2/3 VIEWS Al Nichole APRN.[facility]MOND BLANCHER [address] [place] [address] Phone: tel: fax: [place] [address] Referral ID Status Reason Start Date Expiration Date V isits Requested Visits Authorized [id number] Closed Auto-Generate d Referral 11/02/2024 12/02/2025 1 1 [facility] for visit Narrative* Diagnostic Procedure Only (Routine) - Closed Specialty Diagnoses / Procedures Referred By Contac t Referred To Contact XR IMAGING Diagnoses Right shoulder pain, unspecified chronicity Procedures XR SHOULDER GENERAL 3V OR MORE AP/TRUE AP/OTHER RIGHT RADEX SHOULDER COMPLETE MINIMUM 2 VIEWS Maggi Aldana, PA-C [address] [place] [address] Phone: tel: fax: [place] [address] Referral ID Status Reason Start Date Expiration Date V isits Requested Visits Authorized [id number] Closed Auto-Generate d Referral 04/05/2025 05/05/2026 1 1 [facility] for visit Narrative* Diagnostic Procedure Only (Routine) - Closed Specialty Diagnoses / Procedures Referred By Contac t Referred To Contact XR IMAGING Diagnoses Primary osteoarthritis of right knee Procedures XR KNEE GENERAL 4V AP BOTH/PA BOTH/LAT/MERC RIGHT RADIOLOGIC EXAM KNEE COMPLETE 4/MORE VIEWS VetoviPhillip marinoa, PA-C [address] [place] [address] Phone: tel: fax: [place] [address] Referral ID Status Reason Start Date Expiration Date V isits Requested Visits Authorized [id number] Closed Auto-Generate d Referral 04/24/2025 05/24/2026 1 1 [facility] Chief Complaint and Reason for Visit [...] RT SHOULDER/RX HERE 9 M FU/MOVED FROM [employer] E-ORDER Reason for Visit Cerebrovascular dise ase [...] SCREENING RT SHOULDER/RX HERE 2 ORDERING KAPIL HACKETT AND FERNIE Reason for Visit Chest pain, unspecif ied [...] Educational circumstance September 20 1:30pm Family History No Family History Records Found Relationship Condition Age at Onset Recorded Date/T lashonda father Unknown family medical history Unknown mother Malignant neoplasm of uterus Unknown Disorder of thyroid Unknown Kidney disorder Unknown Hypertension Unknown Congestive heart failure Unknown Arthritis Unknown Advance Directives No Advanced Directives Records Found Advance Directive Response Recorded Date/ Time Advance Directives on File No Octob er 2018 12:06pm Advance Directives Yes July 07, 2019 12:06pm Living Will Yes October 24 10:54pm Power of Scooter Mechanic Yes October 24, 2021 10:54pm Documents on File Type Date Recorded 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 Advance Directive(s) 05/29/2020 7:38 AM Advance Directive Response Recorded Date/ Time Advance Directives Yes July 07, 2019 12:06pm Living Will Yes October 24 10:54pm Power of Scooter Mechanic Yes October 24, 2021 10:54pm Advance Directive Response Recorded Date/ Time Advance Directives on File No Octob er 2018 12:06pm Advance Directives Yes April 09 11:51am Living Will Yes April 09, 2022 11:51am Power of Scooter Mechanic Yes April 09 11:51am Documents on File Type Date Recorded 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 Advance Directive(s) 05/29/2020 7:38 AM Advance Directive Response Recorded Date/ Time Name of Medical Power of Scooter Mechanic Kylee Figjudith August 17, 2022 12:19am Advance Directives Yes April 09 10:51am Living Will Yes August 17 12:19am Power of Scooter Mechanic Yes August 17, 2022 12:19am Advance Directive Response Recorded Date/ Time Advance Directives on File No Octob er 2018 11:06am Name of Medical Power of Scooter Mechanic Kylee Figjudith August 17, 2022 12:19am Advance Directives Yes April 09 10:51am Living Will Yes August 17 12:19am Power of Scooter Mechanic Yes August 17, 2022 12:19am Advance Directive Response Recorded Date/ Time Name of Medical Power of Scooter Mechanic April 08, 2023 2:22pm Advance Directives Yes April 09 11:51am Living Will Yes April 08, 2023 2:22pm Power of Scooter Mechanic Yes April 08 2:22pm Advance Directive Response Recorded Date/ Time Advance Directives on File No Octob er 2018 12:06pm Name of Medical Power of Scooter Mechanic April 08, 2023 2:22pm Advance Directives Yes April 09 11:51am Living Will Yes April 08, 2023 2:22pm Power of Scooter Mechanic Yes April 08 2:22pm Advance Directive Response Recorded Date/ Time Advance Directives on File No Octob er 2018 12:06pm Name of Medical Power of Scooter Mechanic April 08, 2023 2:22pm Name of Medical Power of Scooter Mechanic Kylee Figjudith April 25, 2023 4:41pm Advance Directives Yes April 09 11:51am Living Will Yes April 25 4:41pm Power of Scooter Mechanic Yes April 25 023 4:41pm Advance Directive Response Recorded Date/ Time Advance Directives on File No Octob er 2018 11:06am Name of Medical Power of Scooter Mechanic April 08, 2023 1:22pm Name of Medical Power of Scooter Mechanic Kylee Figjudith April 25, 2023 3:41pm Advance Directives Yes April 09 10:51am Living Will Yes April 25 3:41pm Power of Scooter Mechanic Yes April 25 023 3:41pm Advance Directive Response Recorded Date/ Time Name of Medical Power of Scooter Mechanic roxann ramírez figjudith July 23, 2023 9:22am Advance Directives Yes April 09 10:51am Living Will Yes July 23 9:22am Power of Scooter Mechanic Yes July 23, 2023 9:22am Name of Medical Power of Scooter Mechanic Kylee Figjudith April 25, 2023 3:41pm Advance Directive Response Recorded Date/ Time Name of Medical Power of Scooter Mechanic roxann ramírez figjudith July 23, 2023 9:22am Advance Directives Yes September 22, 2023 9:08am Living Will No September 22 9:08am Power of Scooter Mechanic No September 22 9:08am Advance Directive Response Recorded Date/ Time Advance Directives on File No Octob er 2018 11:06am Name of Medical Power of Scooter Mechanic roxann ramírez figjudith July 23, 2023 9:22am Advance Directives Yes September 22, 2023 9:08am Living Will No September 22 9:08am Power of Scooter Mechanic No September 22 9:08am Advance Directive Response Recorded Date/ Time Advance Directives on File No Octob er 2018 11:06am Advance Directives Yes September 22, 2023 9:08am Living Will No November 21, 2023 9:07pm Power of Scooter Mechanic No November 20 9:07pm Advance Directive Response Recorded Date/ Time Advance Directives on File No Octob er 2018 12:06pm Name of Medical Power of Scooter Mechanic Kylee Figjudith November 22, 2023 2:20am Advance Directives Yes September 22, 2023 10:08am Living Will Yes November 22, 2023 2:20am Power of Scooter Mechanic Yes November 21 2:20am Advance Directive Response Recorded Date/ Time Advance Directives on File No Octob er 2018 12:06pm Name of Medical Power of Scooter Mechanic Kylee Figjudith November 22, 2023 2:20am Name of Medical Power of Scooter Mechanic KYLEE FIGJUDITH December 08, 2023 8:33pm Advance Directives Yes September 22, 2023 10:08am Living Will Yes December 08, 2023 8:33pm Power of Scooter Mechanic Yes December 07 8:33pm Advance Directive Response Recorded Date/ Time Advance Directives on File No Octob er 2018 12:06pm Name of Medical Power of Scooter Mechanic Kylee Figjudith November 22, 2023 2:20am Name of Medical Power of Scooter Mechanic KYLEE FIGJUDITH December 08, 2023 8:33pm Name of Medical Power of Scooter Mechanic Kylee Figjudith January 23, 2024 2:31pm Advance Directives Yes September 22, 2023 10:08am Living Will Yes January 23, 2024 2 :31pm Power of Scooter Mechanic Yes January 23, 2024 2:31pm Advance Directive Response Recorded Date/ Time Name of Medical Power of Scooter Mechanic roxann maki July 23, 2023 9:22am Advance Directives Yes April 09 10:51am Living Will No August 29 023 12:17pm Power of Scooter Mechanic No August 29, 2023 12:17pm Date Activated Date Inactivated Comments 08/19/2013 4:37 PM 08/21/2013 4:18 PM Advance Directive Response Recorded Date/ Time Living Will Yes April 25 4:41pm Do you have a Healthcare Power of Scooter Mechanic? Yes April 25, 2023 4:41pm Advance Directives on File No Octob er 2018 12:06pm Living Will Yes October, 020 5:40pm Do you have a Healthcare Power of Scooter Mechanic? Yes November 12, 2019 5:40pm Living Will Yes October 30, 025 9:07pm Do you have a Healthcare Power of Scooter Mechanic? Yes October 30, 2024 9:07pm Name of Medical Power of Scooter Mechanic October 30, 2024 9:07pm Advance Directives Yes [...] unspecified type Procedures CONSULT TO UROLOGY OFFICE/OUTPATIENT [facility] 60-74 MINUTES Rochelle Hackett MD [address] [place] [address] Referral ID Status Reason Start Date Expiration Date Visits Requested Visits Authorized [id number] Authorized PCP Requested Referral 11/14/2022 11/14/2023 1 1 Specialty Diagnoses / Procedures Referred By Contac t Referred To Contact Orthopedics Diagnoses Chronic pain of right knee Procedures CONSULT TO ORTHOPAEDICS OFFICE/OUTPATIENT [facility] 60-74 MINUTES Al Nichole APRN.[facility]MOND BLANCHER [address] [place] [id number] Referral ID Status Reason Start Date Expiration Date Visits Requested Visits Authorized [id number] Authorized PCP Requested Referral 07/08/2024 1 1 Specialty Diagnoses / Procedures Referred By Contac t Referred To Contact CT IMAGING Diagnoses TIA (transient ischemic attack) Aphasia Ocular migraine Procedures CT BRAIN WO IVCON CT HEAD/BRAIN W/O CONTRAST MATERIAL Irish Warren ANTENNA RIGGER.ALMOND BLANCHER [address] [place] [id number] [place] [address] Referral ID Status Reason Start Date Expiration Date V isits Requested Visits Authorized [id number] Closed Auto-Generate d Referral 11/02/2023 12/01/2024 1 1 Specialty Diagnoses / Procedures Referred By Contac t Referred To Contact Diagnoses Urinary incontinence, unspecified type Procedures CONSULT TO FEMALE UROLOGY/URO GYNECOLOGY OFFICE/OUTPATIENT [facility] 60 MINUTES Sara Rangel APRN.CNS [address] [place] [address] Referral ID Status Reason Start Date Expiration Date Visits Requested Visits Authorized [id number] Authorized PCP Requested Referral 12/15/2023 12/14/2024 1 1 Specialty Diagnoses / Procedures Referred By Contac t Referred To Contact Gerontology Diagnoses Mild cognitive impairment Procedures CONSULT TO GERIATRICS OFFICE/OUTPATIENT [facility] 60 MINUTES Al Nichole APRN.ALMOND BLANCHER [address] [place] [address] Referral ID Status Reason Start Date Expiration Date Visits Requested Visits Authorized [id number] Authorized PCP Requested Referral 04/13/2024 04/12/2025 1 1 Specialty Diagnoses / Procedures Referred By Contac t Referred To Contact Diagnoses Sleep apnea, unspecified type Procedures CONSULT TO SLEEP MEDICINE - ADULT OFFICE/OUTPATIENT [facility] 60 MINUTES Rochelle Hackett MD [address] [place] [id number] Referral ID Status Reason Start Date Expiration Date Visits Requested Visits Authorized [id number] Authorized PCP Requested Referral 07/21/2024 07/21/2025 1 [...] or prosecute any alcohol or drug abuse patient.[facility] the event this information is protected by the Federal Confidentiality of Alcohol and Drug Abuse Patient Records regulations: The Federal rules restrict any use of the information to criminally investigate or prosecute any alcohol or drug abuse patient.[facility] the event this information is protected by the Federal Confidentiality of Alcohol and Drug Abuse Patient Records regulations: The Federal rules restrict any use of the information to criminally investigate or prosecute any alcohol or drug abuse patient.[facility] the event this information is protected by the Federal Confidentiality of Alcohol and Drug Abuse Patient Records regulations: The Federal rules restrict any use of the information to criminally investigate or prosecute any alcohol or drug abuse patient.[facility] the event this information is protected by the Federal Confidentiality of Alcohol and Drug Abuse Patient Records regulations: The Federal rules restrict any use of the information to criminally investigate or prosecute any alcohol or drug abuse patient.[facility] the event this information is protected by the Federal Confidentiality of Alcohol and Drug Abuse Patient Records regulations: The Federal rules restrict any use of the information to criminally investigate or prosecute any alcohol or drug abuse patient.[facility] the event this information is protected by the Federal Confidentiality of Alcohol and Drug Abuse Patient Records regulations: The Federal rules restrict any use of the information to criminally investigate or prosecute any alcohol or drug abuse patient.[facility] the event this information is protected by the Federal Confidentiality of Alcohol and Drug Abuse Patient Records regulations: The Federal rules restrict any use of the information to criminally investigate or prosecute any alcohol or drug abuse patient.[facility] HospitalIn the event this information is protected by the Federal Confidentiality of Alcohol and Drug Abuse Patient Records regulations: The Federal rules restrict any use of the information to criminally investigate or prosecute any alcohol or drug abuse patient.[facility] the event this information is protected by the Federal Confidentiality of Alcohol and Drug Abuse Patient Records regulations: The Federal rules restrict any use of the information to criminally investigate or prosecute any alcohol or drug abuse patient.[facility] the event this information is protected by the Federal Confidentiality of Alcohol and Drug Abuse Patient Records regulations: The Federal rules restrict any use of the information to criminally investigate or prosecute any alcohol or drug abuse patient.[facility] Hospital[facility] the event this information is protected by the Federal Confidentiality of Alcohol and Drug Abuse Patient Records regulations: The Federal rules restrict any use of the information to criminally investigate or prosecute any alcohol or drug abuse patient.[facility] the event this information is protected by the Federal Confidentiality of Alcohol and Drug Abuse Patient Records regulations: The Federal rules restrict any use of the information to criminally investigate or prosecute any alcohol or drug abuse patient.[facility] the event this information is protected by the Federal Confidentiality of Alcohol and Drug Abuse Patient Records regulations: The Federal rules restrict any use of the information to criminally investigate or prosecute any alcohol or drug abuse patient.[facility] the event this information is protected by the Federal Confidentiality of Alcohol and Drug Abuse Patient Records regulations: The Federal rules restrict any use of the information to criminally investigate or prosecute any alcohol or drug abuse patient.[facility] [facility]In the event this information is protected by the Federal Confidentiality of Alcohol and Drug Abuse Patient Records regulations: The Federal rules restrict any use of the information to criminally investigate or prosecute any alcohol or drug abuse patient.[facility]In the event this information is protected by the Federal Confidentiality of Alcohol and Drug Abuse Patient Records regulations: The Federal rules restrict any use of the information to criminally investigate or prosecute any alcohol or drug abuse patient.[facility]In the event this information is protected by the Federal Confidentiality of Alcohol and Drug Abuse Patient Records regulations: The Federal rules restrict any use of the information to criminally investigate or prosecute any alcohol or drug abuse patient.[facility]In the event this information is protected by the Federal Confidentiality of Alcohol and Drug Abuse Patient Records regulations: The Federal rules restrict any use of the information to criminally investigate or prosecute any alcohol or drug abuse patient.[facility]In the event this information is protected by the Federal Confidentiality of Alcohol and Drug Abuse Patient Records regulations: The Federal rules restrict any use of the information to criminally investigate or prosecute any alcohol or drug abuse patient.[facility]In the event this information is protected by the Federal Confidentiality of Alcohol and Drug Abuse Patient Records regulations: The Federal rules restrict any use of the information to criminally investigate or prosecute any alcohol or drug abuse patient.[facility]In the event this information is protected by the Federal Confidentiality of Alcohol and Drug Abuse Patient Records regulations: The Federal rules restrict any use of the information to criminally investigate or prosecute any alcohol or drug abuse patient.[facility]In the event this information is protected by the Federal Confidentiality of Alcohol and Drug Abuse Patient Records regulations: The Federal rules restrict any use of the information to criminally investigate or prosecute any alcohol or drug abuse patient.[facility]In the event this information is protected by the Federal Confidentiality of Alcohol and Drug Abuse Patient Records regulations: The Federal rules restrict any use of the information to criminally investigate or prosecute any alcohol or drug abuse patient.[facility]In the event this information is protected by the Federal Confidentiality of Alcohol and Drug Abuse Patient Records regulations: The Federal rules restrict any use of the information to criminally investigate or prosecute any alcohol or drug abuse patient.[facility]In the event this information is protected by the Federal Confidentiality of Alcohol and Drug Abuse Patient Records regulations: The Federal rules restrict any use of the information to criminally investigate or prosecute any alcohol or drug abuse patient.[facility]In the event this information is protected by the Federal Confidentiality of Alcohol and Drug Abuse Patient Records regulations: The Federal rules restrict any use of the information to criminally investigate or prosecute any alcohol or drug abuse patient.[facility]In the event this information is protected by the Federal Confidentiality of Alcohol and Drug Abuse Patient Records regulations: The Federal rules restrict any use of the information to criminally investigate or prosecute any alcohol or drug abuse patient.[facility]In the event this information is protected by the Federal Confidentiality of Alcohol and Drug Abuse Patient Records regulations: The Federal rules restrict any use of the information to criminally investigate or prosecute any alcohol or drug abuse patient.[facility]In the event this information is protected by the Federal Confidentiality of Alcohol and Drug Abuse Patient Records regulations: The Federal rules restrict any use of the information to criminally investigate or prosecute any alcohol or drug abuse patient.[facility]In the event this information is protected by the Federal Confidentiality of Alcohol and Drug Abuse Patient Records regulations: The Federal rules restrict any use of the information to criminally investigate or prosecute any alcohol or drug abuse patient.[facility]In the event this information is protected by the Federal Confidentiality of Alcohol and Drug Abuse Patient Records regulations: The Federal rules restrict any use of the information to criminally investigate or prosecute any alcohol or drug abuse patient.[facility]In the event this information is protected by the Federal Confidentiality of Alcohol and Drug Abuse Patient Records regulations: The Federal rules restrict any use of the information to criminally investigate or prosecute any alcohol or drug abuse patient.[facility]In the event this information is protected by the Federal Confidentiality of Alcohol and Drug Abuse Patient Records regulations: The Federal rules restrict any use of the information to criminally investigate or prosecute any alcohol or drug abuse patient.[facility]In the event this information is protected by the Federal Confidentiality of Alcohol and Drug Abuse Patient Records regulations: The Federal rules restrict any use of the information to criminally investigate or prosecute any alcohol or drug abuse patient.[facility]In the event this information is protected by the Federal Confidentiality of Alcohol and Drug Abuse Patient Records regulations: The Federal rules restrict any use of the information to criminally investigate or prosecute any alcohol or drug abuse patient.[facility]In the event this information is protected by the Federal Confidentiality of Alcohol and Drug Abuse Patient Records regulations: The Federal rules restrict any use of the information to criminally investigate or prosecute any alcohol or drug abuse patient.[facility]In the event this information is protected by the Federal Confidentiality of Alcohol and Drug Abuse Patient Records regulations: The Federal rules restrict any use of the information to criminally investigate or prosecute any alcohol or drug abuse patient.[facility]In the event this information is protected by the Federal Confidentiality of Alcohol and Drug Abuse Patient Records regulations: The Federal rules restrict any use of the information to criminally investigate or prosecute any alcohol or drug abuse patient.[facility]In the event this information is protected by the Federal Confidentiality of Alcohol and Drug Abuse Patient Records regulations: The Federal rules restrict any use of the information to criminally investigate or prosecute any alcohol or drug abuse patient.[facility]In the event this information is protected by the Federal Confidentiality of Alcohol and Drug Abuse Patient Records regulations: The Federal rules restrict any use of the information to criminally investigate or prosecute any alcohol or drug abuse patient.[facility]In the event this information is protected by the Federal Confidentiality of Alcohol and Drug Abuse Patient Records regulations: The Federal rules restrict any use of the information to criminally investigate or prosecute any alcohol or drug abuse patient.[facility]In the event this information is protected by the Federal Confidentiality of Alcohol and Drug Abuse Patient Records regulations: The Federal rules restrict any use of the information to criminally investigate or prosecute any alcohol or drug abuse patient.[facility]In the event this information is protected by the Federal Confidentiality of Alcohol and Drug Abuse Patient Records regulations: The Federal rules restrict any use of the information to criminally investigate or prosecute any alcohol or drug abuse patient.[facility]In the event this information is protected by the Federal Confidentiality of Alcohol and Drug Abuse Patient Records regulations: The Federal rules restrict any use of the information to criminally investigate or prosecute any alcohol or drug abuse patient.[facility]In the event this information is protected by the Federal Confidentiality of Alcohol and Drug Abuse Patient Records regulations: The Federal rules restrict any use of the information to criminally investigate or prosecute any alcohol or drug abuse patient.[facility]In the event this information is protected by the Federal Confidentiality of Alcohol and Drug Abuse Patient Records regulations: The Federal rules restrict any use of the information to criminally investigate or prosecute any alcohol or drug abuse patient.[facility]In the event this information is protected by the Federal Confidentiality of Alcohol and Drug Abuse Patient Records regulations: The Federal rules restrict any use of the information to criminally investigate or prosecute any alcohol or drug abuse patient.[facility]In the event this information is protected by the Federal Confidentiality of Alcohol and Drug Abuse Patient Records regulations: The Federal rules restrict any use of the information to criminally investigate or prosecute any alcohol or drug abuse patient.[facility]In the event this information is protected by the Federal Confidentiality of Alcohol and Drug Abuse Patient Records regulations: The Federal rules restrict any use of the information to criminally investigate or prosecute any alcohol or drug abuse patient.[facility]In the event this information is protected by the Federal Confidentiality of Alcohol and Drug Abuse Patient Records regulations: The Federal rules restrict any use of the information to criminally investigate or prosecute any alcohol or drug abuse patient.[facility]In the event this information is protected by the Federal Confidentiality of Alcohol and Drug Abuse Patient Records regulations: The Federal rules restrict any use of the information to criminally investigate or prosecute any alcohol or drug abuse patient.[facility]In the event this information is protected by the Federal Confidentiality of Alcohol and Drug Abuse Patient Records regulations: The Federal rules restrict any use of the information to criminally investigate or prosecute any alcohol or drug abuse patient.[facility]In the event this information is protected by the Federal Confidentiality of Alcohol and Drug Abuse Patient Records regulations: The Federal rules restrict any use of the information to criminally investigate or prosecute any alcohol or drug abuse patient.[facility]In the event this information is protected by the Federal Confidentiality of Alcohol and Drug Abuse Patient Records regulations: The Federal rules restrict any use of the information to criminally investigate or prosecute any alcohol or drug abuse patient.[facility]In the event this information is protected by the Federal Confidentiality of Alcohol and Drug Abuse Patient Records regulations: The Federal rules restrict any use of the information to criminally investigate or prosecute any alcohol or drug abuse patient.[facility]In the event this information is protected by the Federal Confidentiality of Alcohol and Drug Abuse Patient Records regulations: The Federal rules restrict any use of the information to criminally investigate or prosecute any alcohol or drug abuse patient.[facility]In the event this information is protected by the Federal Confidentiality of Alcohol and Drug Abuse Patient Records regulations: The Federal rules restrict any use of the information to criminally investigate or prosecute any alcohol or drug abuse patient.[facility]In the event this information is protected by the Federal Confidentiality of Alcohol and Drug Abuse Patient Records regulations: The Federal rules restrict any use of the information to criminally investigate or prosecute any alcohol or drug abuse patient.[facility]In the event this information is protected by the Federal Confidentiality of Alcohol and Drug Abuse Patient Records regulations: The Federal rules restrict any use of the information to criminally investigate or prosecute any alcohol or drug abuse patient.[facility]In the event this information is protected by the Federal Confidentiality of Alcohol and Drug Abuse Patient Records regulations: The Federal rules restrict any use of the information to criminally investigate or prosecute any alcohol or drug abuse patient.[facility]In the event this information is protected by the Federal Confidentiality of Alcohol and Drug Abuse Patient Records regulations: The Federal rules restrict any use of the information to criminally investigate or prosecute any alcohol or drug abuse patient.[facility]In the event this information is protected by the Federal Confidentiality of Alcohol and Drug Abuse Patient Records regulations: The Federal rules restrict any use of the information to criminally investigate or prosecute any alcohol or drug abuse patient.[facility]In the event this information is protected by the Federal Confidentiality of Alcohol and Drug Abuse Patient Records regulations: The Federal rules restrict any use of the information to criminally investigate or prosecute any alcohol or drug abuse patient.[facility]In the event this information is protected by the Federal Confidentiality of Alcohol and Drug Abuse Patient Records regulations: The Federal rules restrict any use of the information to criminally investigate or prosecute any alcohol or drug abuse patient.[facility]In the event this information is protected by the Federal Confidentiality of Alcohol and Drug Abuse Patient Records regulations: The Federal rules restrict any use of the information to criminally investigate or prosecute any alcohol or drug abuse patient.[facility]In the event this information is protected by the Federal Confidentiality of Alcohol and Drug Abuse Patient Records regulations: The Federal rules restrict any use of the information to criminally investigate or prosecute any alcohol or drug abuse patient.[facility]In the event this information is protected by the Federal Confidentiality of Alcohol and Drug Abuse Patient Records regulations: The Federal rules restrict any use of the information to criminally investigate or prosecute any alcohol or drug abuse patient.[facility]In the event this information is protected by the Federal Confidentiality of Alcohol and Drug Abuse Patient Records regulations: The Federal rules restrict any use of the information to criminally investigate or prosecute any alcohol or drug abuse patient.[facility]In the event this information is protected by the Federal Confidentiality of Alcohol and Drug Abuse Patient Records regulations: The Federal rules restrict any use of the information to criminally investigate or prosecute any alcohol or drug abuse patient.[facility]In the event this information is protected by the Federal Confidentiality of Alcohol and Drug Abuse Patient Records regulations: The Federal rules restrict any use of the information to criminally investigate or prosecute any alcohol or drug abuse patient.[facility]In the event this information is protected by the Federal Confidentiality of Alcohol and Drug Abuse Patient Records regulations: The Federal rules restrict any use of the information to criminally investigate or prosecute any alcohol or drug abuse patient.[facility]In the event this information is protected by the Federal Confidentiality of Alcohol and Drug Abuse Patient Records regulations: The Federal rules restrict any use of the information to criminally investigate or prosecute any alcohol or drug abuse patient.[facility]In the event this information is protected by the Federal Confidentiality of Alcohol and Drug Abuse Patient Records regulations: The Federal rules restrict any use of the information to criminally investigate or prosecute any alcohol or drug abuse patient.[facility]In the event this information is protected by the Federal Confidentiality of Alcohol and Drug Abuse Patient Records regulations: The Federal rules restrict any use of the information to criminally investigate or prosecute any alcohol or drug abuse patient.[facility]In the event this information is protected by the Federal Confidentiality of Alcohol and Drug Abuse Patient Records regulations: The Federal rules restrict any use of the information to criminally investigate or prosecute any alcohol or drug abuse patient.[facility]In the event this information is protected by the Federal Confidentiality of Alcohol and Drug Abuse Patient Records regulations: The Federal rules restrict any use of the information to criminally investigate or prosecute any alcohol or drug abuse patient.[facility]In the event this information is protected by the Federal Confidentiality of Alcohol and Drug Abuse Patient Records regulations: The Federal rules restrict any use of the information to criminally investigate or prosecute any alcohol or drug abuse patient.[facility]In the event this information is protected by the Federal Confidentiality of Alcohol and Drug Abuse Patient Records regulations: The Federal rules restrict any use of the information to criminally investigate or prosecute any alcohol or drug abuse patient.[facility]In the event this information is protected by the Federal Confidentiality of Alcohol and Drug Abuse Patient Records regulations: The Federal rules restrict any use of the information to criminally investigate or prosecute any alcohol or drug abuse patient.[facility]In the event this information is protected by the Federal Confidentiality of Alcohol and Drug Abuse Patient Records regulations: The Federal rules restrict any use of the information to criminally investigate or prosecute any alcohol or drug abuse patient.[facility]In the event this information is protected by the Federal Confidentiality of Alcohol and Drug Abuse Patient Records regulations: The Federal rules restrict any use of the information to criminally investigate or prosecute any alcohol or drug abuse patient.[facility]In the event this information is protected by the Federal Confidentiality of Alcohol and Drug Abuse Patient Records regulations: The Federal rules restrict any use of the information to criminally investigate or prosecute any alcohol or drug abuse patient.[facility]In the event this information is protected by the Federal Confidentiality of Alcohol and Drug Abuse Patient Records regulations: The Federal rules restrict any use of the information to criminally investigate or prosecute any alcohol or drug abuse patient.[facility]In the event this information is protected by the Federal Confidentiality of Alcohol and Drug Abuse Patient Records regulations: The Federal rules restrict any use of the information to criminally investigate or prosecute any alcohol or drug abuse patient.[facility]In the event this information is protected by the Federal Confidentiality of Alcohol and Drug Abuse Patient Records regulations: The Federal rules restrict any use of the information to criminally investigate or prosecute any alcohol or drug abuse patient.[facility]In the event this information is protected by the Federal Confidentiality of Alcohol and Drug Abuse Patient Records regulations: The Federal rules restrict any use of the information to criminally investigate or prosecute any alcohol or drug abuse patient.[facility]In the event this information is protected by the Federal Confidentiality of Alcohol and Drug Abuse Patient Records regulations: The Federal rules restrict any use of the information to criminally investigate or prosecute any alcohol or drug abuse patient.[facility]In the event this information is protected by the Federal Confidentiality of Alcohol and Drug Abuse Patient Records regulations: The Federal rules restrict any use of the information to criminally investigate or prosecute any alcohol or drug abuse patient.[facility]In the event this information is protected by the Federal Confidentiality of Alcohol and Drug Abuse Patient Records regulations: The Federal rules restrict any use of the information to criminally investigate or prosecute any alcohol or drug abuse patient.[facility]In the event this information is protected by the Federal Confidentiality of Alcohol and Drug Abuse Patient Records regulations: The Federal rules restrict any use of the information to criminally investigate or prosecute any alcohol or drug abuse patient.[facility]In the event this information is protected by the Federal Confidentiality of Alcohol and Drug Abuse Patient Records regulations: The Federal rules restrict any use of the information to criminally investigate or prosecute any alcohol or drug abuse patient.[facility]In the event this information is protected by the Federal Confidentiality of Alcohol and Drug Abuse Patient Records regulations: The Federal rules restrict any use of the information to criminally investigate or prosecute any alcohol or drug abuse patient.[facility]In the event this information is protected by the Federal Confidentiality of Alcohol and Drug Abuse Patient Records regulations: The Federal rules restrict any use of the information to criminally investigate or prosecute any alcohol or drug abuse patient.[facility] Hospital[facility] the event this information is protected by the Federal Confidentiality of Alcohol and Drug Abuse Patient Records regulations: The Federal rules restrict any use of the information to criminally investigate or prosecute any alcohol or drug abuse patient.[facility] Hospital[facility] the event this information is protected by the Federal Confidentiality of Alcohol and Drug Abuse Patient Records regulations: The Federal rules restrict any use of the information to criminally investigate or prosecute any alcohol or drug abuse patient.[facility] Reason for Visit (unrecogniz ed section [...] ED Follow-up ER follow up from at [facility] for Diarrhea Reason Comments Medicare Wellness Exam [...] ORTHOPAEDICS OFFICE/OUTPATIENT NEW HIGH MDM 60-74 MINUTES Older, Al, ANTENNA RIGGER.ALMOND BLANCHER [address] [place] [address] Referral ID Status Reason Start Date Expiration Date V isits Requested Visits Authorized [id number] Closed PCP Requested Referral 07/09/2023 07/08/2024 1 [...] CT HEAD/BRAIN W/O CONTRAST MATERIAL Irish Warren, ANTENNA RIGGER.ALMOND BLANCHER [address] [place] [address] [place] [address] Referral ID Status Reason Start Date Expiration Date V isits Requested Visits Authorized [id number] Closed Auto-Generate d Referral 11/02/2023 12/01/2024 1 [...] Referred By Phong t Referred To Contact Sleep Medicine Diagnoses Sleep apnea, unspecified type Rochelle Hackett MD [address] [place] [address] Jose Montenegro, [address] [place] [address] Referral ID Status Reason Start Date Expiration Date V isits Requested Visits Authorized [id number] Pending Review 08/02/2024 08/27/2025 1 1 Reason Onset Date Comments Population Health Navigation Outreach 10/11/2024 Holmen/Workbench/ACO Reason Comments Recheck [facility] ER follow up, fa ll back pain Reason Comments Pain Management Referral Reason Comments Orders [facility] point PT Reason Comments Recheck Reason Onset Date Comments Population Health Navigation Outreach 12/09/2024 Aco high risk attempt # 1 Reason Comments F/U 3 Month Reason Onset Date Comments Refill Request 02/22/2025 Reason Comments Hospital F/U [facility] 02/24/25-02/27/25 Influenza & low sodium Reason Comments Insect Bite 4-5 ticks in groin a rosa isela x noon today Reason Comments Patient Update Patient Question Reason Comments Urinary Retention Cotto Catheter Change Specialty Diagnoses / Procedures Referred By Phong antonio Referred To Contact Urology Diagnoses Urinary retention Procedures CONSULT TO UROLOGY OFFICE/OUTPATIENT [facility] 60 MINUTES Rochelle Hackett MD [address] [place] [address] Phone: tel: fax: Referral ID Status Reason Start Date Expiration Date V isits Requested Visits Authorized [id number] Closed PCP Requested Referral 04/12/2025 04/12/2026 1 1 Reason Comments Post Void Residual Reason Comments Pain Reason Comments Injections Reason Comments Injections Euflexxa injection # 3 right knee Care Teams (unrecognized sec tion and content) City Wellness Coordinator Relationship Specialty Start Date End Date Rochelle Hackett MD [address] [place] [address] PCP - General Internal Medicine 08/17/15 City Wellness Coordinator Relationship Specialty Start Date End Date Rochelle Hackett MD [address] [place] [address] PCP - General Internal Medicine 08/17/15 City Wellness Coordinator Relationship Specialty Start Date End Date Rochelle Hackett MD [address] [place] [address] PCP - General Internal Medicine 08/17/15 City Wellness Coordinator Relationship Specialty Start Date End Date Rochelle Hackett MD [address] [place] [address] PCP - General Internal Medicine 08/17/15 City Wellness Coordinator Relationship Specialty Start Date End Date Rochelle Hackett MD [address] [place] [address] PCP - General Internal Medicine 08/17/15 City Wellness Coordinator Relationship Specialty Start Date End Date Rochelle Hackett MD [address] [place] [address] PCP - General Internal Medicine 08/17/15 City Wellness Coordinator Relationship Specialty Start Date End Date Rochelle Hackett MD [address] [place] [address] PCP - General Internal Medicine 08/17/15 City Wellness Coordinator Relationship Specialty Start Date End Date Rochelle Hackett MD [address] [place] [address] PCP - General Internal Medicine 08/17/15 City Wellness Coordinator Relationship Specialty Start Date End Date Rochelle Hackett MD [address] [place] [address] PCP - General Internal Medicine 08/17/15 City Wellness Coordinator Relationship Specialty Start Date End Date Rochelle Hackett MD [address] [place] [address] PCP - General Internal Medicine 08/17/15 City Wellness Coordinator Relationship Specialty Start Date End Date Rochelle Hackett MD [address] [place] [address] PCP - General Internal Medicine 08/17/15 City Wellness Coordinator Relationship Specialty Start Date End Date Rochelle Hackett MD [address] [place] [address] PCP - General Internal Medicine 08/17/15 City Wellness Coordinator Relationship Specialty Start Date End Date Rochelle Hackett MD [address] [place] [address] PCP - General Internal Medicine 08/17/15 City Wellness Coordinator Relationship Specialty Start Date End Date Rochelle Hackett MD [address] [place] [address] PCP - General Internal Medicine 08/17/15 City Wellness Coordinator Relationship Specialty Start Date End Date Rochelle Hackett MD [address] [facility], [place] [address] PCP - General Internal Medicine 08/17/15 City Wellness Coordinator Relationship Specialty Start Date End Date Rochelle Hackett MD [address] [facility] [place] [address] PCP - General Internal Medicine 08/17/15 City Wellness Coordinator Relationship Specialty Start Date End Date Rochelle Hackett MD [address] [facility] [place] [address] PCP - General Internal Medicine 08/17/15 Team [...] STEARNS Attending Provider, Referring Provide r Active City Wellness Coordinator Relationship Specialty Start Date End Date Rochelle Hackett MD [address] [facility] [place] [address] PCP - General Internal Medicine 08/17/15 Team [...] Dr. Denzel Boone DO Emergency Provider Active City Wellness Coordinator Relationship Specialty Start Date End Date Rochelle Hackett MD [address] [facility] [place] [address] PCP - General Internal Medicine 08/17/15 City Wellness Coordinator Relationship Specialty Start Date End Date Rochelle Hackett MD [address] [facility] [place] [address] PCP - General Internal Medicine 08/17/15 Team Status: Inactive Member Role Status Dates Dr. Rochelle Hackett MD Primary Care Provider, Referring Provider Active Tomeka Ascencio SOCK FOLDER, SOCK FOLDER-C Attending Provider Active Team Status: Inactive Member Role Status Dates Dr. Rochelle Hackett MD Primary Care Provider Active Dr. Erick Blanca MD Attending Provider Active Team Status: Inactive Member Role Status Dates Dr. Rochelle Hackett MD Primary Care Provider Active Dr. Denzel Boone DO Attending Provider, Emergency P rovider Active City Wellness Coordinator Relationship Specialty Start Date End Date Rochelle Hackett MD [address] [facility] [place] [address] PCP - General Internal Medicine 08/17/15 City Wellness Coordinator Relationship Specialty Start Date End Date Rochelle Hackett MD [address] [facility] [place] [address] PCP - General Internal Medicine 08/17/15 City Wellness Coordinator Relationship Specialty Start Date End Date Rochelle Hackett MD [address] [place] [address] PCP - General Internal Medicine 08/17/15 Team Status: Inactive Member Role Status Dates Dr. Rochelle Hackett MD Primary Care Provider, Referring Provider Active Carolyn Garcia SOCK FOLDER, SOCK FOLDER-C Attending Provider Active Team Status: Inactive Member Role Status Dates Dr. Rochelle Hackett MD Primary Care Provider Active Dr. Tejinder Mora MD Emergency Provider Active City Wellness Coordinator Relationship Specialty Start Date End Date Rochelle Hackett MD [address] [place], [place] [address] PCP - General Internal Medicine 08/17/15 City Wellness Coordinator Relationship Specialty Start Date End Date Rochelle Hackett MD [address] [place], [place] [address] PCP - General Internal Medicine 08/17/15 Team [...] Pamela Prince MD Attending Provider, Referring P alphonso Active Team Status: Active Member Role Status Dates Dr. Rochelle Hackett MD Primary Care Provider Active Dr. Erick Blanca MD Attending Provider, Referring Provider Active Dr. Eagle Enciso MD Other Provider Active Team Status: Inactive Member Role Status Dates Dr. Rochelle Hackett MD Primary Care Provider Active Tomeka Ascencio SOCK FOLDER, SOCK FOLDER-C Attending Provider, Referring Provider Active Team Status: Inactive Member Role Status Dates Dr. Rochelle Hackett MD Primary Care Provider Active Dr. Tejinder Mora MD Attending Provider, Emergency Provi aline Active City Wellness Coordinator Relationship Specialty Start Date End Date Rochelle Hackett MD [address] [place] [address] PCP - General Internal Medicine 08/17/15 Team Status: Inactive Member Role Status Dates Dr. Rochelle Hackett MD Primary Care Provider Active Dr. Erick Blanca MD Attending Provider, Referring Provider Active Dr. Eagle Enciso MD Other Provider Active Team Status: Inactive Member Role Status Dates Dr. Rochelle Hackett MD Primary Care Provider Active Tanesha Britt PA, PA Attending Provider, Referr ing Provider Active City Wellness Coordinator Relationship Specialty Start Date End Date Rochelle Hackett MD [address] [place] [address] PCP - General Internal Medicine 08/17/15 City Wellness Coordinator Relationship Specialty Start Date End Date Rochelle Hackett MD [address] [place] [address] PCP - General Internal Medicine 08/17/15 Team [...] MD Primary Care Provider Active Handy Russell SOCK FOLDER, SOCK FOLDER-C Attending Provider Active Team Status: Inactive Member Role Status Dates Dr. Rochelle Hackett MD Primary Care Provider Active Bakari Dietrich MD Attending Provider, Emergency Provid er Active City Wellness Coordinator Relationship Specialty Start Date End Date Rochelle Hackett MD [address] [place] [address] PCP - General Internal Medicine 08/17/15 Team [...] Dr. Erick Blanca MD Attending Provider Active City Wellness Coordinator Relationship Specialty Start Date End Date Rochelle Hackett MD [address] [facility] [place] [address] PCP - General Internal Medicine 08/17/15 City Wellness Coordinator Relationship Specialty Start Date End Date Rochelle Hackett MD [address] [facility] [place] [address] PCP - General Internal Medicine 08/17/15 City Wellness Coordinator Relationship Specialty Start Date End Date Rochelle Hackett MD [address] [facility] [place] [address] PCP - General Internal Medicine 08/17/15 City Wellness Coordinator Relationship Specialty Start Date End Date Rochelle Hackett MD [address] [facility] [place] [place] [address] PCP - General Internal Medicine 08/17/15 City Wellness Coordinator Relationship Specialty Start Date End Date Rochelle Hackett MD [address] [facility] [place] [address] PCP - General Internal Medicine 08/17/15 Team Status: Active Member Role Status Dates Dr. Rochelle Hackett MD Primary Care Provider Active Dr. Viet Ortez DO Emergency Provider Active Dr. Michelle Hunt MD Admit Provider, Attending Prov ider Active Team Status: Active Member Role Status Dates Dr. Rochelle Hackett MD Primary Care Provider Active Dr. Remus Ungur , DO Emergency Provider Active Dr. Michelle Hunt MD Admit Provider, Other Provider Active Dr. Marty Bassett , DO Attending Provider, Other Provider Active Team Status: Inactive Member Role Status Dates Dr. Rochelle Hackett MD Primary Care Provider Active Dr. Viet Ortez , DO Emergency Provider Active Dr. Michelle Hunt MD Admit Provider, Other Provider Active Dr. Marty Bassett , DO Attending Provider Active Team Status: Inactive Member Role Status Dates Dr. Rochelle Hackett MD Primary Care Provider Active Dr. Mayur Tabares , DO Emergency Provider Active City Wellness Coordinator Relationship Specialty Start Date End Date Rochelle Hackett MD [address] [place] [address] PCP - General Internal Medicine 08/17/15 Team Status: Inactive Member Role Status Dates Dr. Rochelle Hackett MD Primary Care Provider Active Dr. Mayur Tabares , Attending Provider, Emergency P alphonso Active Team Status: Inactive Member Role Status Dates Dr. Rochelle Hackett MD Primary Care Provider Active Dr. Vinh Colon MD Emergency Provider Active City Wellness Coordinator Relationship Specialty Start Date End Date Rochelle Hackett MD [address] [place], [place] [address] PCP - General Internal Medicine 08/17/15 City Wellness Coordinator Relationship Specialty Start Date End Date Rochelle Hackett MD [address] [place] [address] PCP - General Internal Medicine 08/17/15 City Wellness Coordinator Relationship Specialty Start Date End Date Rochelle Hackett MD [address] [place] [address] PCP - General Internal Medicine 08/17/15 City Wellness Coordinator Relationship Specialty Start Date End Date Rochelle Hackett MD [address] [place], [place] [address] PCP - General Internal Medicine 08/17/15 City Wellness Coordinator Relationship Specialty Start Date End Date Rochelle Hackett MD [address] [place] [address] PCP - General Internal Medicine 08/17/15 City Wellness Coordinator Relationship Specialty Start Date End Date Rochelle Hackett MD [address] [place] [address] PCP - General Internal Medicine 08/17/15 City Wellness Coordinator Relationship Specialty Start Date End Date Rochelle Hackett MD [address] [place] [address] PCP - General Internal Medicine 08/17/15 City Wellness Coordinator Relationship Specialty Start Date End Date Rochelle Hackett MD [address] [place] [address] PCP - General Internal Medicine 08/17/15 City Wellness Coordinator Relationship Specialty Start Date End Date Rochelle Hackett MD [address] [place] [address] PCP - General Internal Medicine 08/17/15 City Wellness Coordinator Relationship Specialty Start Date End Date Rochelle Hackett MD [address] [place] [address] PCP - General Internal Medicine 08/17/15 Team Status: Inactive Member Role Status Dates Dr. Rochelle Hackett MD Primary Care Provider Active Dr. Jatinder Fan MD Emergency Provider Active City Wellness Coordinator Relationship Specialty Start Date End Date Rochelle Hackett MD [address] [place] [address] PCP - General Internal Medicine 10/29/17 Brian Cooley MD [address] [place] [id number] Cardiovascular Disease 07/19/13 Zak Jara MD [address] [place] [address] Lead Welder Clinical Cardiac Electrophysiology 07/18/13 City Wellness Coordinator Relationship Specialty Start Date End Date Rochelle Hackett MD [address] [place] [address] PCP - General Internal Medicine 08/17/15 Jane Michelle PA-C [address] [place] [address] Centrifuge Operator Family Medicine 08/21/24 Al Nichole APRN.ALMOND BLANCHER [address] [place] [address] Centrifuge Operator Internal Medicine 08/21/24 Sofía Baig PA-C [address] [place] [address] Centrifuge Operator Family Medicine 08/21/24 City Wellness Coordinator Relationship Specialty Start Date End Date Rochelle Hackett MD [address] [place] [address] PCP - General Internal Medicine 08/17/15 Jane Michelle PA-C [address] [place] [address] Centrifuge Operator Family Medicine 08/21/24 Al Nichole APRN.ALMOND BLANCHER [address] [place] [address] Centrifuge Operator Internal Medicine 08/21/24 Sofía Baig PA-C [address] [place] [address] Centrifuge Operator Family [facility] 08/21/24 Anayeli Pettit, RN [address] [place] [address] Licensed Occupational Therapist 09/02/24 City Wellness Coordinator Relationship Specialty Start Date End Date Rochelle Hackett MD [address] [place] [address] PCP - General Internal Medicine 10/29/17 Brian Cooley MD [address] [place] [phone] Cardiovascular Disease 07/19/13 Zak Jara MD [address] [place] [address] Lead Welder Clinical Cardiac Electrophysiology 07/18/13 City Wellness Coordinator Relationship Specialty Start Date End Date Rochelle Hackett MD [address] [place], [place] [address]91 PCP - General Internal Medicine 08/17/15 Jane Michelle PA-C [address] [place] [address] [facility] 08/21/24 Al Nichole APRN.ALMOND BLANCHER [address] [place], [place] 3[address]21 Centrifuge Operator Internal Medicine 08/21/24 Sofía Baig PA-C [address] [place] [address] Centrifuge Operator Family Medicine 08/21/24 Anayeli Ptetit RN [address] [place] [address] Licensed Occupational Therapist 09/02/24 City Wellness Coordinator Relationship Specialty Start Date End Date Rochelle Hackett MD [address] [place] [address] PCP - General Internal Medicine 08/17/15 Jane Michelle PA-C [address] [place] [address] Centrifuge Operator Family Medicine 08/21/24 Al Nichole APRN.ALMOND BLANCHER [address] [place] [address] Centrifuge Operator Internal Medicine 08/21/24 Sofía Baig PA-C [address] [place] [address] Centrifuge Operator Family Medicine 08/21/24 Anayeli Pettit RN [address] [place] [address] Licensed Occupational Therapist 09/02/24 City Wellness Coordinator Relationship Specialty Start Date End Date Rochelle Hackett MD [address] [place] [address] PCP - General Internal Medicine 08/17/15 Jane Michelle PA-C [address] [place] [address] Centrifuge Operator Family Medicine 08/21/24 Al Nichole APRN.ALMOND BLANCHER [address] [place] [address] Centrifuge Operator Internal Medicine 08/21/24 Sofía Baig PA-C [address] [place] [address] Centrifuge Operator Family [facility] 08/21/24 Anayeli Pettit, TRELL [address] [place] [address] Licensed Occupational Therapist 09/02/24 City Wellness Coordinator Relationship Specialty Start Date End Date Rochelle Hackett MD [address] [place] [address] PCP - General Internal Medicine 08/17/15 Jane Michelle PA-C [address] [place] [address] Centrifuge Operator Family Medicine 08/21/24 Al Nichole APRN.ALMOND BLANCHER [address] [place] [address] Centrifuge Operator Internal Medicine 08/21/24 Sofía Baig PA-C [address] [place] [address] Centrifuge Operator Family Medicine 08/21/24 Anayeli Pettit RN [address] [place] [address] Licensed Occupational Therapist 09/02/24 City Wellness Coordinator Relationship Specialty Start Date End Date Rochelle Hackett MD [address] [place] [address] PCP - General Internal Medicine 08/17/15 Jane Michelle PA-C [address] [place] [address] Centrifuge Operator Family Medicine 08/21/24 Al Nichole APRN.ALMOND BLANCHER [address] [place] [address] Centrifuge Operator Internal Medicine 08/21/24 Sofía Baig PA-C [address] [place] [address] Centrifuge Operator Family Medicine 08/21/24 Anayeli Pettit, TRELL [address] [place] [address] Licensed Occupational Therapist 09/02/24 City Wellness Coordinator Relationship Specialty Start Date End Date Rochelle Hackett MD [address] [place] [address] PCP - General Internal Medicine 08/17/15 Jane Michelle PA-C [address] [place], [place] [id number] Centrifuge Operator Family Medicine 08/21/24 Al Nichole APRN.CNP [address] [place] [address] Centrifuge Operator Internal Medicine 08/21/24 Sofía Baig PA-C [address] [place] [address] Centrifuge Operator Family Medicine 08/21/24 Anayeli Pettit, TRELL [address] [place] [address] Licensed Occupational Therapist 09/02/24 City Wellness Coordinator Relationship Specialty Start Date End Date Rochelle Hackett MD [address] [place] [address] PCP - General Internal Medicine 08/17/15 Jane Michelle PA-C [address] [place] [address] Centrifuge Operator Family Medicine 08/21/24 Al Nichole APRN.ALMOND BLANCHER [address] [place] [address] Centrifuge Operator Internal Medicine 08/21/24 Sofía Baig PA-C [address] [place] [address] Centrifuge Operator Family Medicine 08/21/24 Anayeli Pettit RN [address] [place] [address] Licensed Occupational Therapist 09/02/24 City Wellness Coordinator Relationship Specialty Start Date End Date Rochelle Hackett MD [address] [place] [address] PCP - General Internal Medicine 08/17/15 Jane Michelle PA-C [address] [place] [address] Centrifuge Operator Family Medicine 08/21/24 Al Nichole APRN.ALMOND BLANCHER [address] [place] [address] Centrifuge Operator Internal Medicine 08/21/24 Sofía Baig PA-C [address] [place] [address] Centrifuge Operator Family Medicine 08/21/24 Anayeli Pettit RN [address] [place] [address] Licensed Occupational Therapist 09/02/24 City Wellness Coordinator Relationship Specialty Start Date End Date Rochelle Hackett MD [address] [place] [address] PCP - General Internal Medicine 08/17/15 Al Nichole APRN.ALMOND BLANCHER [address] [facility], [place] [address] Centrifuge Operator Internal Medicine 08/21/24 Anayeli Pettit, TRELL [address] [place], [place] [id number] Licensed Occupational Therapist 09/02/24 City Wellness Coordinator Relationship Specialty Start Date End Date Rochelle Hackett MD [address] [facility], [place] [address] PCP - General Internal Medicine 08/17/15 Al Nichole APRN.ALMOND BLANCHER [address] [facility], [place] [address] Centrifuge Operator Internal Medicine 08/21/24 Anayeli Pettit RN [address] [place] [address] Licensed Occupational Therapist 09/02/24 Team Status: Active Member Role Status [...] 2024 End: October 14, 2024 Dr. Maya aSl MD Attending Provider Active Start: October 14, [...] Attending Provider Active Start: December 20, 2024 City Wellness Coordinator Relationship Specialty Start Date End Date Rochelle Hackett MD [address] [place], [place] [address]331 PCP - General Internal Medicine 08/17/15 Jane Michelle PA-C [address] [place] [address] [facility] Family Medicine 08/21/24 12/04/24 Al Nichoel APRN.ALMOND BLANCHER [address] [place], [place] [id number] [facility] Internal Medicine 08/21/24 Sofía Baig PA-C [address] [place], [place] [id number] Centrifuge Operator Family Medicine 08/21/24 12/04/24 Anayeli Pettit, TRELL [address] [facility] [place] [address] Licensed Occupational Therapist 09/02/24 City Wellness Coordinator Relationship Specialty Start Date End Date Rochelle Hackett MD [address] [facility] [place] [address] PCP - General Internal Medicine 08/17/15 Al Nichole APRN.ALMOND BLANCHER [address] [facility] [place] [address] Centrifuge Operator Internal Medicine 08/21/24 Anayeli Pettit, TRELL [address] [place] [address] Licensed Occupational Therapist 09/02/24 City Wellness Coordinator Relationship Specialty Start Date End Date Rochelle Hackett MD [address] [facility] [place] [address] PCP - General Internal Medicine 08/17/15 Al Nichole APRN.ALMOND BLANCHER [address] [facility] [place] [address] Centrifuge Operator Internal Medicine 08/21/24 Anayeli Ptetit RN [address] [place] [address] Licensed Occupational Therapist 09/02/24 City Wellness Coordinator Relationship Specialty Start Date End Date Rochelle Hackett MD [address] [facility] [place] [address] PCP - General Internal Medicine 08/17/15 Al Nichole APRN.ALMOND BLANCHER [address] [facility] [place] [address] Centrifuge Operator Internal Medicine 08/21/24 City Wellness Coordinator Relationship Specialty Start Date End Date Rochelle Hackett MD [address] [facility] [place] [address] PCP - General Internal Medicine 08/17/15 Al Nichole APRN.ALMOND BLANCHER [address] [place] [address] Centrifuge Operator Internal Medicine 08/21/24 City Wellness Coordinator Relationship Specialty Start Date End Date Rochelle Hackett MD [address] [place] [address] PCP - General Internal Medicine 08/17/15 Al Nichole APRN.ALMOND BLANCHER [address] [place] [address] Centrifuge Operator Internal Medicine 08/21/24 City Wellness Coordinator Relationship Specialty Start Date End Date Rochelle Hackett MD [address] [place] [address] PCP - General Internal Medicine 08/17/15 Al Nichole APRN.ALMOND BLANCHER [address] [place] [address] Centrifuge Operator Internal Medicine 08/21/24 City Wellness Coordinator Relationship Specialty Start Date End Date Rochelle Hackett MD [address] [place] [address] PCP - General Internal Medicine 08/17/15 Al Nichole APRN.ALMOND BLANCHER [address] [place] [address] Centrifuge Operator Internal Medicine 08/21/24 City Wellness Coordinator Relationship Specialty Start Date End Date Rochelle Hackett MD [address] [place] [address] PCP - General Internal Medicine 08/17/15 Al Nichole APRN.ALMOND BLANCHER [address] [place] [address] Centrifuge Operator Internal Medicine 08/21/24 [facility] Relationship Specialty Start Date End Date Rochelle Hackett MD [address] [place] [address] PCP - General Internal Medicine 08/17/15 Al Nichole APRN.ALMOND BLANCHER [address] [place] [address] Centrifuge Operator Internal Medicine 08/21/24 [facility] Relationship Specialty Start Date End Date Rochelle Hackett MD [address] [place] [address] PCP - General Internal Medicine 08/17/15 Al Nichole APRN.ALMOND BLANCHER [address] [place] [address] Centrifuge Operator Internal Medicine 08/21/24 Anayeli Pettit, TRELL [address] [phone] Licensed Occupational Therapist 09/02/2402/12 [facility] Relationship Specialty Start Date End Date Rochelle Hackett MD [address] [place] [address] PCP - General Internal Medicine 08/17/15 Al Nichole APRN.ALMOND BLANCHER [address] [place] [address] Centrifuge Operator Internal Medicine 08/21/24 [facility] Relationship Specialty Start Date End Date Rochelle Hackett MD [address] [place], [place] [id number] PCP - General Internal Medicine 08/17/15 Al Nichole APRN.ALMOND BLANCHER [address] [place], [place] [address] [phone] Centrifuge Operator Internal Medicine 08/21/24 [facility] Relationship Specialty Start Date End Date Rochelle Hackett MD [address] [place], [place] [address] [phone] PCP - General Internal Medicine 08/17/15 Al Nichole APRN.ALMOND BLANCHER [address] [place] [address] Centrifuge Operator Internal Medicine 08/21/24 [facility] Relationship Specialty Start Date End Date Rochelle Hackett MD [address] [place] [address] PCP - General Internal Medicine 08/17/15 Al Nichole APRN.ALMOND BLANCHER [address] [place] [address] Centrifuge Operator Internal Medicine 08/21/24 [facility] Relationship Specialty Start Date End Date Rochelle Hackett MD [address] [place], [place] [address] [phone] PCP - General Internal Medicine 08/17/15 Al Nichole APRN.ALMOND BLANCHER [address] [place] [address] Centrifuge Operator Internal Medicine 08/21/24 INFORMATION SOURCE (unrecogn ized section and content) DATE CREATED AUTHOR 07/18/2024 [facility] DATE CREATED AUTHOR AUTHOR'S ORGANIZ ATION 01/16/[address] [facility] DATE CREATED AUTHOR AUTHOR'S ORGANIZ ATION 04/23/2025 [facility] DATE CREATED AUTHOR AUTHOR'S ORGANIZ ATION 05/20/2025 [facility] DATE CREATED AUTHOR AUTHOR'S ORGANIZ ATION 07/16/2025 [facility] FOR RECORDS PERTAINING TO PATIENTS WHO [...] BE BASED ON THE PRIMARY CLINICAL RECORDS. [facility] [employer] [facility]. provides no warranty or guarantee of the accuracy or completeness of information in this document.
[2025-09-02 19:48] LABS: Troponin T High Sens 2 HR 13 ng/L (<=14)
[2025-09-02 20:56] LABS: Mucous, Urine 0 SEEN /hpf (<or=2+)
[2025-09-02 20:58] LABS: Color, Urine Yellow (Yellow); Glucose, Dipstick Normal (Normal); Ketone-Dipstick 15 mg/dl (Negative); Leukocyte Esterase-Dipstick 25 /ul (Negative); Nitrite-Dipstick Negative (Negative); Occult Blood-Urine 50 /ul (Negative); Protein-Dipstick 15 mg/dl (Negative); Specific Gravity, Urine 1.010 (1.002-1.030); Urine Bilirubin Dipstick Negative (Negative)
[2025-09-02 21:31] LABS: Red Blood Cells-Urine 0-5 SEEN /hpf (0-5); Squamous Epithelial Cells - UA 0-5 SEEN /hpf (5-10)
[2025-09-02 21:47] LABS: Troponin T High Sens 4 HR 13 ng/L (<=14)
== END 2025-09-02 21:55 | disposition home or self-care (01) ==
PROVIDERS: Emergency Provider Emergency Medicine; PCP Internal Medicine; Visit Provider Emergency Medicine
DX: R00.2 Palpitations (principal); R11.2 Nausea with vomiting, unspecified; K21.9 Gastro-esophageal reflux disease without esophagitis
CPT/HCPCS: 71046; 80048; 81001; 84484; 85025; 93005; 96361; 96374; 99285; A4216; J2405